=== PATIENT | female | born 1960 | race Caucasian/White ===

== ENCOUNTER 2018-07-11 19:21 | Emergency (ER) | payer MEDICARE, MEDICAID, SELFPAY ==
[2018-07-11 19:22] VITALS: BP 197/108; PULSE 94; RESP 22; TEMP 37.2; O2SAT 97; BMI 31.4
[2018-07-11 19:43] VITALS: O2SAT 97
--- NOTE | 2018-07-11 20:09 | EKG12_ITS ---
Test Reason : COLD Blood Pressure : / mmHG Vent. Rate : 082 BPM Atrial Rate : 082 BPM P-R Int : 162 ms QRS Dur : 076 ms QT Int : 412 ms P-R-T Axes : 061 012 037 degrees QTc Int : 481 ms Normal sinus rhythm Possible Left atrial enlargement Prolonged QT Abnormal ECG Confirmed by JONEL SUE, AUSTIN ([id number]), photography editor JOE TORRES ([id number]) on 07/14/2018 3:15:25 PM Referred By: KATIE Confirmed By:AUSTIN REMY MD
[2018-07-11] MEDS: Ipratropium/Albuterol Sulfate 3 ML AMPUL.NEB INHALATION (20:21)
[2018-07-11] MEDS: Albuterol 2.5 MG/3 ML VIAL.NEB. INHALATION (20:21)
[2018-07-11 20:22] VITALS: PULSE 84; RESP 18
--- NOTE | 2018-07-11 20:30 | RAD_ITS ---
STUDY: X-RAY CHEST REASON FOR EXAM: Female, 58 years old. Cough TECHNIQUE: Frontal and lateral views of the chest were obtained. COMPARISON: August 18, 2015 FINDINGS: The lungs are adequately aerated. There are no focal airspace opacities. There is no demonstrated pleural abnormality. The cardiac silhouette is normal in size. The mediastinum and hilar regions are unremarkable. Normal visualized pulmonary arteries. There is atherosclerotic calcification of the thoracic aorta. There are diffuse degenerative changes of the visualized spine. The visualized ribs, clavicles, and shoulders are unremarkable. There is no demonstrated abnormality of the visualized upper abdomen. RAD/Chest PA and Lateral IMPRESSION: There is no evidence of focal consolidation or pleural effusion. Electronically Signed: Leila Faith MD at 20:58 EDT Tel Direct: [phone], Service support ,
--- NOTE | 2018-07-11 20:35 | ED.DCSUM_ITS ---
- ER Visit Summary Date of Service: 07/11/18 Chief Complaint: Shortness of breath History of Present Illness: The patient is a 58 F who states that for the past several days she has been laying on the couch with some postnasal drip and sinus drainage as well as a sore throat and swollen glands in the neck. States that today she assisted a friend to [place] and was carrying a 2-year-old she developed significant short of breath and chest tightness. She notes a cough with some clear sputum production. She has generalized myalgias. She is a pack-a-day smoker. She is a history of diabetes with diabetic neuropathy. Physical Examination: Afebrile vital signs are stable Gen: Well-nourished well-developed Head: Normocephalic atraumatic Eyes: Perrl EOMI ENT: TMs clear patient has clear rhinorrhea and postnasal drip moist mucous membranes Neck: Supple no lymphadenopathy no JVD nontender CVS: Regular rate rhythm no murmurs normal S1-S2 Respiratory: No distress patient has inspiratory and expiratory wheezing chest nontender Abdomen: Soft nontender nondistended normal bowel sounds no masses Back: Nontender Extremity: Nontender no edema Skin: Normal color no rash Neuro: alert orientated ?3 CN II-XII intact normal strength sensation reflexes gait cerebellar Psych: Normal affect normal mood Test Results: EKG shows a sinus rhythm at a rate of 82. Chest x-ray is negative for infiltrate Emergency Department Course and Treatment: Patient received breathing treatments on repeat lung auscultation the wheezing is significantly improved. She will be placed on prednisone and doxycycline she is to use her albuterol MDI 2 puffs every 3 hours. She is to follow-up with primary care early next week or return if worsening. Impression: 1. Acute bronchitis with bronchospasm This note was generated with [employer] dictation software. It may contain incorrect words, spelling, and punctuation that were not noted in review of the chart prior to signing ED Disposition - Plan for ED Patient: Disposition: Home or Assisted Living Chief Complaint: Cold Sx Instructions: Acute Bronchitis, ED Wheezing Prescriptions: Albuterol Inhaler [Ventolin Hfa] 2 puff INHALATION Q4H PRN PRN #1 inhaler PRN Reason: Wheezing Prednisone [Deltasone] 40 mg PO DAILY #8 tab Doxycycline Monohydrate 100 mg PO BID #19 cap Referrals: Susanna Monroe MD [Primary Care Provider] - 3-5 Days if not improving Additional Instructions: For the next couple days I would use your inhaler 2 puffs every 3 hours. Please return if worsening or concerns.
[2018-07-11] MEDS: predniSONE 20 MG Tablet 40 MG PO (21:42)
[2018-07-11] MEDS: Doxycycline 100 MG CAPSULE PO (21:42)
[2018-07-11 21:47] VITALS: BP 159/100; PULSE 85; RESP 15; O2SAT 94
== END 2018-07-11 21:48 | disposition home or self-care (01) ==
PROVIDERS: Emergency Provider Emergency Medicine; Family Provider Internal Medicine; PCP Internal Medicine
DX: J20.9 Acute bronchitis, unspecified (principal); E11.40 Type 2 diabetes mellitus with diabetic neuropathy, unspecified; F17.200 Nicotine dependence, unspecified, uncomplicated; Z79.84 Long term (current) use of oral hypoglycemic drugs; Z79.899 Other long term (current) drug therapy
CPT/HCPCS: 71046; 93005; 94640; 99283

== ENCOUNTER → 2018-10-28 15:25 | Outpatient (CLI) | payer MEDICARE, MEDICAID, SELFPAY | PROVIDERS: Family Provider Internal Medicine; PCP Internal Medicine; Referring Provider Otolaryngology Otolaryngology/Facial Plastic Surgery; Visit Provider Otolaryngology Otolaryngology/Facial Plastic Surgery | DX: J32.9 Chronic sinusitis, unspecified (principal) | CPT/HCPCS: 87070; 87205 ==

== ENCOUNTER → 2018-11-13 17:43 | Outpatient (CLI) | payer MEDICARE, MEDICAID, SELFPAY ==
--- NOTE | 2018-11-13 17:49 | CT_ITS ---
STUDY: CT MAXILLOFACIAL SINUSES REASON FOR EXAM: Female, 58 years old. Sinusitis RADIATION DOSAGE (If Supplied By Facility): CTDIvol = ( 33.06 ) mGy, DLP = ( 780.13 ) mGycm TECHNIQUE: The patient was scanned in a multi detector CT scanner. High resolution axial imaging was performed without the administration of intravenous contrast material. Sagittal and coronal images were reconstructed. Individualized dose optimization techniques were used for this CT. COMPARISON: None. FINDINGS: FRONTAL SINUSES: Normal aeration, without mucosal inflammatory disease. ETHMOIDAL SINUSES: Normal aeration, without mucosal inflammatory disease. MAXILLARY SINUSES: Normal aeration, without mucosal inflammatory disease. SPHENOIDAL SINUSES: Normal aeration, without mucosal inflammatory disease. There is patency of the bilateral maxillary infundibuli with normal uncinate processes, ethmoid bullae, and hiatus semilunaris. There is a cedrick bullosa of the right middle turbinate. Normal bilateral inferior turbinates. There is a leftward nasal spur. There is patency of the bilateral nasal airways. The visualized osseous structures are normal. The visualized bilateral orbital contents are normal. There is atherosclerotic calcifications of the bilateral carotid arteries. CT/Sinus/Facial Bone IMPRESSION: Normal CT examination of the maxillofacial sinuses. Electronically Signed: Keshia Nava MD at 8:53 EST Tel , Service support ,
== END ==
PROVIDERS: Family Provider Internal Medicine; PCP Internal Medicine; Referring Provider Otolaryngology Otolaryngology/Facial Plastic Surgery; Visit Provider Otolaryngology Otolaryngology/Facial Plastic Surgery
DX: J32.9 Chronic sinusitis, unspecified (principal)
CPT/HCPCS: 70486

== ENCOUNTER 2019-07-29 18:56 | Emergency (ER) | payer MEDICARE, MEDICAID, SELFPAY ==
[2019-07-29 18:57] VITALS: BP 160/105; PULSE 97; RESP 16; TEMP 36.3; O2SAT 99; BMI 33.8
--- NOTE | 2019-07-29 19:32 | ED.VISSUMM ---
- ER Visit Summary Date of Service: 07/29/19 Chief Complaint: Foot pain History of Present Illness: The patient is a 59 F with bilateral foot pain she describes as [id number]. This is been gradually getting worse for a long time. She has been taking ibuprofen twice a day and her doctor has been increasing her gabapentin dose. She is planning to follow-up with her foot surgeon for nerve testing. She has a history of diabetes and her sugars usually run in the 200s. She is a smoker. Physical Examination: Afebrile and vital signs unremarkable. Foot inspection is normal. She has strong DP and PT pulses, symmetric. Normal capillary refill. Skin appears unremarkable. The remainder of her exam is unremarkable except for some subjective paresthesias in her feet. Test Results: None indicated Emergency Department Course and Treatment: Patient has neuropathy. I advised her to continue taking her ibuprofen and gabapentin. I advised her to cut back or quit smoking. I advised her to get her sugars under control. She will need to follow-up with her outpatient doctors. There is no indication for emergent imaging or other intervention today. She was treated with a short course of pain medicine and will call her doctors for follow-up tomorrow morning. Treatment Plan: As above Disposition: Discharged Impression: 1. Bilateral foot neuropathy This note was generated with [employer] dictation software. It may contain incorrect words, spelling, and punctuation that were not noted in review of the chart prior to signing ED Disposition - Plan for ED Patient: Referrals: Susanna Monroe MD [Primary Care Provider] -
--- NOTE | 2019-07-29 19:35 | ED.DEP ---
ED Disposition - Plan for ED Patient: Instructions: What Is Peripheral Neuropathy? Prescriptions: Oxycodone HCl/Acetaminophen [Percocet 5/325] 1 tab PO Q6H PRN PRN 3 Days #12 tab PRN Reason: Pain Prescription Printed Referrals: Susanna Monroe MD [Primary Care Provider] -
[2019-07-29 20:08] VITALS: BP 158/60; PULSE 87; RESP 18; O2SAT 96
== END 2019-07-29 20:09 | disposition home or self-care (01) ==
LOC: ED 20:00
PROVIDERS: Emergency Provider Emergency Medicine; Family Provider Internal Medicine; PCP Internal Medicine
DX: E11.40 Type 2 diabetes mellitus with diabetic neuropathy, unspecified (principal); I10 Essential (primary) hypertension; J44.9 Chronic obstructive pulmonary disease, unspecified; F32.9 Major depressive disorder, single episode, unspecified; F41.9 Anxiety disorder, unspecified; F17.200 Nicotine dependence, unspecified, uncomplicated; Z79.84 Long term (current) use of oral hypoglycemic drugs; Z79.899 Other long term (current) drug therapy
CPT/HCPCS: 99282

== ENCOUNTER → 2019-10-07 09:04 | Outpatient (CLI) | payer MEDICARE, MEDICAID, SELFPAY ==
--- NOTE | 2019-10-07 14:09 | NEURO ---
NCS and/or EMG Patient Report Ordering Doctor: Jesus Chavez DATE OF SERVICE: 10/07/19 Ibis De Santiago is a 59-year-old female presents for electrodiagnostic testing of the lower limbs. She reports pain in both feet, primarily on the plantar aspect. Electrodiagnostic findings: Peroneal motor nerve demonstrates normal distal latency, amplitude and conduction velocity bilaterally. Normal tibial motor response bilaterally. Normal peroneal and tibial F waves. H reflex borderline prolonged bilaterally. Prolonged sural latency is noted bilaterally. Normal superficial peroneal and plantar responses. Needle EMG testing demonstrates normal motor unit action potentials in all muscles tested. There is no evidence of denervation noted. Electrodiagnostic impression: This is an abnormal study in the lower limbs. 1. 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 This, however, is unlikely to explain her current symptomatology as it would likely present with numbness. 2. There is no electrodiagnostic evidence for lumbosacral radiculopathy. If there are any further questions, please do not hesitate to contact me.
== END ==
PROVIDERS: Family Provider Internal Medicine; PCP Internal Medicine; Referring Provider Podiatrist Foot & Ankle Surgery; Visit Provider Podiatrist Foot & Ankle Surgery
DX: E11.49 Type 2 diabetes mellitus with other diabetic neurological complication (principal)
CPT/HCPCS: 95886; 95912

== ENCOUNTER 2020-04-25 15:56 | Emergency (ER) | payer MEDICARE, MEDICAID, SELFPAY ==
[2020-04-25 15:57] VITALS: BP 139/98; PULSE 71; RESP 16; TEMP 36.3; O2SAT 98; BMI 31.4
--- NOTE | 2020-04-25 17:48 | RAD_ITS ---
STUDY: X-RAY - LUMBAR SPINE REASON FOR EXAM: Female, 59 years old. Back pain TECHNIQUE: 3 view(s) of the lumbar spine were obtained. COMPARISON: None FINDINGS: Normal lumbar lordosis. There is no substantial scoliosis. Mild disc space narrowing is present from L1-L2 down to L3-L4 as well as retrolisthesis of 2 to 3 mm at each level. The remaining disc spaces are preserved. Multilevel mild to moderate facet hypertrophy is present. No visualized fracture or compression deformity. Surgical clips are seen in the pelvis. There is atherosclerotic calcification of the abdominal aorta without a demonstrated aneurysm. RAD/Lumbar Spine 2 or 3 Views IMPRESSION: Degenerative changes of the spine, as detailed above. Electronically Signed: Eduardo العراقي MD at 18:51 EDT , Service support ,
--- NOTE | 2020-04-25 18:19 | ED.VIS.GEN ---
History of Present Illness Chief Complaint: Lower Extremity Injury Informant: Patient Narrative: 59-year-old female with history of neuropathy and some sciatic pain on the right with worsening since she states she had a fall 5 days ago. She is ambulatory. She states that she has paresthesias that run down the right side of her leg. These seem to emanate from the gluteal region. She has history of surgery in the right thigh and has paresthesias which are still present. She denies loss of bladder or bowel control. She denies saddle paresthesia. - Past Medical History (1) Anxiety and depression Status: Chronic (2) Asthma Status: Chronic (3) Benign essential hypertension Status: Chronic (4) COLD (chronic obstructive lung disease) Status: Chronic (5) Hyperlipidemia Status: Chronic Past Medical History - Allergies and Home Meds Allergies/Adverse Reactions: Allergies acetaminophen [From Vicodin] Allergy (Verified 04/25/20 15:59) Upset Stomach fluoxetine [From Prozac] Allergy (Verified 04/25/20 17:27) Chest tightness hydrocodone [From Vicodin] Allergy (Verified 04/25/20 15:59) Upset Stomach Penicillins Allergy (Verified 07/29/19 18:56) Hives Primary Care Physician: Susanna Monroe MD [Primary Care Provider] - Prior records reviewed: Yes Past Medical History: - - Reviewed Surgical History: appendectomy - 1996, cholecystectomy - 2004, hysterectomy - 2002, tonsillectomy - 1992 Smoking Status: Current every day smoker - Family History Maternal Family History: Reports: No pertinent history Paternal Family History: Reports: No pertinent history Sibling Family History: Reports: No pertinent history Review of Systems General: Denies: Chills, Fever, Sweats Eyes: Denies: Visual changes - bilaterally, Diplopia ENT: Denies: Rhinorrhea, Sore throat Cardiovascular: Denies: Chest pain, Palpitations Respiratory: Denies: Dyspnea, Cough, Dyspnea on exertion Gastrointestinal: Denies: Abdominal pain, Nausea, Vomiting, Diarrhea, Melena, Hematochezia Genitourinary: Denies: Dysuria, Hematuria, Frequency Musculoskeletal: Reports: Back pain - Radiation into the lateral leg and thigh Skin: Denies: Rash Neurological: Denies: Headache, Weakness Physical Exam Vital Signs/Narrative: Vital Signs Temp Pulse Resp BP Pulse Ox 04/25/20 15:57 97.4 F L 71 16 139/98 H 98 Inital Vital Signs reviewed: Yes General: Well nourished, No Acute Distress Head: Normocephalic, Atraumatic Eyes: Perrl, EOMI ENT: Moist mucous membranes Cardiovascular: Regular rate, Regular rhythm Respiratory: No distress, CTA bilaterally Back: - - No apparent midline spinal tenderness, deformity, step-off. There is right lateral paraspinal musculature tenderness and right gluteal tenderness. The right anterior lateral thigh has some decreased sensation which patient reports is due to surgery. Diagnostic/Tx/Re-eval Clinical Impression(s) from Imaging Studies Lumbar Spine X-Ray 04/25/20 17:48 IMPRESSION: Degenerative changes of the spine, as detailed above. Electronically Signed: Eduardo العراقي MD at 18:51 EDT , Service support , - Medical Decision Making Patient was seen and evaluated arrival for back pain which is been worsening since she fell. She states that she has some paresthesias down the right lateral aspect of her gluteal region and thigh. She has no signs or symptoms of cauda equina or infectious etiology for her back pain. Patient is driving so I could not give her pain medication here. I did get an x-ray of the lumbar spine which shows interval changes. Given short supply of [place] for home. She will follow-up with her PCP to ensure resolution. She is given return precautions. Impression: 1. Lumbar contusion 2. Lumbar strain ED Disposition - Plan for ED Patient: Disposition: Home or Assisted Living Instructions: Relieving Back Pain Prescriptions: Oxycodone HCl/Acetaminophen [Percocet 5/325] 1 tab PO Q6H PRN PRN 3 Days #12 tab PRN Reason: Pain Prescription Printed Referrals: Susanna Monroe MD [Primary Care Provider] -
[2020-04-25 19:18] VITALS: BP 138/85; PULSE 92; RESP 16; O2SAT 99
== END 2020-04-25 19:19 | disposition home or self-care (01) ==
PROVIDERS: Emergency Provider Student in an Organized Health Care Education/Training Program; PCP Internal Medicine
DX: S30.0XXA Contusion of lower back and pelvis, initial encounter (principal); S39.012A Strain of muscle, fascia and tendon of lower back, initial encounter; F17.200 Nicotine dependence, unspecified, uncomplicated; I10 Essential (primary) hypertension; J44.9 Chronic obstructive pulmonary disease, unspecified; F32.9 Major depressive disorder, single episode, unspecified; E78.5 Hyperlipidemia, unspecified; F41.9 Anxiety disorder, unspecified; X58.XXXA Exposure to other specified factors, initial encounter
CPT/HCPCS: 72100; 99282

== ENCOUNTER 2020-04-26 16:21 | Emergency (ER) | payer MEDICARE, MEDICAID, SELFPAY ==
[2020-04-25 15:57] VITALS: BMI 31.4
[2020-04-26 16:21] VITALS: BP 145/88; PULSE 78; RESP 16; TEMP 36.1; O2SAT 97; BMI 31.4
--- NOTE | 2020-04-26 16:49 | MRI_ITS ---
STUDY: MRI LUMBAR SPINE WITHOUT CONTRAST REASON FOR EXAM: Female, 59 years old. ble weakness and amp; numbness, urinary retention x 2 days with rather sudden onset TECHNIQUE: Standardized fat and water weighted pulse sequences were obtained in the sagittal and axial planes. COMPARISON: Lumbar spine x-ray dated April 25, 2020 FINDINGS: No visualized acute fracture or compression deformity. No aggressive process is seen. Normal lumbar lordosis. There is no substantial scoliosis. Normal conus medullaris that terminates at the T12 level. L1-2: Retrolisthesis of L1 on L2 of 3 to 4 mm is present. Moderate disc space narrowing results in a diffuse disc osteophyte complex. Normal disc height, hydration and morphology. Normal bilateral facet joints. Normal central canal and bilateral lateral recesses. Normal bilateral intervertebral neural foramina. L2-3: Mild retrolisthesis of L2 on L3 of 2 to 3 mm is present. The disc spaces mildly to moderately narrow resulting in a diffuse disc spur complex. The facet joints are mildly to moderately hypertrophied and degenerated. Right lateral recess stenosis with nerve root compression is present due to asymmetry of the disc spur complex. Normal central canal. Left lateral recess is also present. Normal bilateral intervertebral neural foramina. L3-4: Minimal retrolisthesis of L3 on L4 of less than 2 mm is present. Mild disc space narrowing is associated with a mild diffuse disc spur complex. The facet joints are moderately hypertrophied. Normal central canal and bilateral lateral recesses. Normal bilateral intervertebral neural foramina. L4-5: Normal endplates. Mild posterior disc space narrowing is present with minimal annular bulging. Significant facet joint and ligamenta flava hypertrophy contribute to moderate central canal stenosis and bilateral lateral recess stenosis with nerve root compression moderate left foraminal stenosis contributes to mild compression of the nerve root. Mild right foraminal stenosis is present. L5-S1: Normal endplates. Normal disc height, hydration and morphology. The facet joints are mildly hypertrophied and degenerated. Normal central canal and bilateral lateral recesses. Normal bilateral intervertebral neural foramina. Normal visualized sacral ala. Normal visualized paraspinous soft tissue structures. MRI/Spine Lumbar (Routine) IMPRESSION: 1. Multilevel degenerative changes, as described above. 2. Moderate central canal stenosis at L4-L5 3. Right lateral recess stenosis with nerve root compression at L2-L3 Electronically Signed: Eduardo العراقي MD at 20:06 EDT , Service support ,
--- NOTE | 2020-04-26 17:16 | ED.VIS.BACK ---
History of Present Illness Chief Complaint: Back Informant: Patient Onset: Days - 2-3 Context: Gradual Onset Timing: Continuous Quality: Aching Location: Lumbar, Buttock, Right Leg, Left Leg Current Severity: Severe Maximum Severity: Severe Worsened by: improves with: Movement, Ambulation Relieved by: Nothing Associated Symptoms: Numbness, Tingling, Radiation to Right Leg, Radiation to Left Leg, Urinary Retention - Today, Fecal Incontinence - Flatus only Narrative: Patient states she has done repetitive lifting in moving heavy things within the past couple weeks, and actually had a minor fall where she fell on her back and was seen here in the ER and had negative x-rays. Pain is gradually increased, especially over the last couple days, yesterday she started having numbness in both of her legs, today it has progressed to her perineum and she has had incontinence of flatus, feeling like she cannot hold in gas, and she has noticed that when she tries to urinate she is unable to get urine out. This is never happened her before. She has had back issues in the past, but never required any surgeries. The patient also does note that she has pain in her neck diffusely, and some mild tingling in her right fingers, but mild. No weakness in her upper extremities. - Past Medical History (1) Anxiety and depression Status: Chronic (2) Asthma Status: Chronic (3) Benign essential hypertension Status: Chronic (4) COLD (chronic obstructive lung disease) Status: Chronic (5) Hyperlipidemia Status: Chronic (6) Obstructive sleep apnea Status: Chronic (7) Osteoarthritis Status: Chronic Past Medical History - Allergies and Home Meds Allergies/Adverse Reactions: Allergies acetaminophen [From Vicodin] Allergy (Verified 04/26/20 16:23) Upset Stomach fluoxetine [From Prozac] Allergy (Verified 04/26/20 16:23) Chest tightness hydrocodone [From Vicodin] Allergy (Verified 04/26/20 16:23) Upset Stomach Penicillins Allergy (Verified 04/26/20 16:23) [facility] Primary Care Physician: Susanna Monroe MD [Primary Care Provider] - Surgical History: appendectomy - 1996, cholecystectomy - 2004, hysterectomy - 2002, tonsillectomy - 1992 Smoking Status: Current every day smoker - Family History Maternal Family History: Reports: No pertinent history Paternal Family History: Reports: No pertinent history Sibling Family History: Reports: No pertinent history Review of Systems General: Denies: Chills, Fever, Sweats Eyes: Denies: Visual changes - bilaterally, Diplopia ENT: Denies: Rhinorrhea, Sore throat Cardiovascular: Denies: Chest pain, Palpitations Respiratory: Denies: Dyspnea, Cough, Dyspnea on exertion Gastrointestinal: Reports: - - Incontinent of flatus, see HPI. Denies: Abdominal pain, Nausea, Vomiting, Diarrhea, Melena, Hematochezia Genitourinary: Reports: - - Urinary retention. Denies: Dysuria, Hematuria, Frequency Musculoskeletal: Reports: Neck pain, Back pain. Denies: Extremity Pain Skin: Denies: Rash, Wounds Neurological: Reports: Weakness - BLE, Numbness - BLE, and perineum. Denies: Headache Physical Exam Vital Signs/Narrative: Vital Signs Temp Pulse Resp BP Pulse Ox 04/26/20 16:21 97 F L 78 16 145/88 H 97 Inital Vital Signs reviewed: Yes General: Well nourished, Well developed Head: Normocephalic, Atraumatic Eyes: Perrl, EOMI ENT: Moist mucous membranes, No rhinorrhea Neck: Supple, Nontender Cardiovascular: Regular rate, Regular rhythm, No murmurs. Negative for: Tachycardia Respiratory: No distress, CTA bilaterally, Chest nontender Abdomen: Soft, Nontender, Nondistended, Normal bowel sounds Rectal: - - Decreased rectal tone and sensation in the perianal area Back: Normal Inspection, Positive SLR - Right, Positive SLR - Left. Negative for: CVA tenderness Extremeties: Nontender, No edema Skin: Normal color, No rash Neuro: Alert, Oriented, Weakness, Parasthesia - Both lower extremities, including perineum, - - Able to stand, but hyporeflexic. No clonus. Toes downgoing bilaterally. Weakness greater on the left lower extremity, with regards to thigh extension and knee flexion, also mildly weak with knee extension as well. 4+/5 in all those groups. Normal objective sensation and strength and reflexes in both upper extremities with symmetry. Psychological: Normal affect Diagnostic/Tx/Re-eval Impressions Lumbar Spine MRI 04/26/20 16:49 IMPRESSION: 1. Multilevel degenerative changes, as described above. 2. Moderate central canal stenosis at L4-L5 3. Right lateral recess stenosis with nerve root compression at L2-L3 Electronically Signed: Eduardo العراقي MD at 20:06 EDT , Service support , 04/26/20 16:49 MRI Lumbar [Spine Lumbar (Routine)] [MRI] Stat Laboratory Results 04/26/20 04/26/20 04/26/20 17:15 17:15 17:15 WBC 10.0 RBC 4.84 Hgb 13.8 Hct 41.4 MCV 85.5 MCH 28.5 MCHC 33.3 RDW Std Deviation 42.4 RDW Coeff of Rodrigo 13.8 Plt Count 352 MPV 9.8 Immature Gran % (Auto) 0.200 Neut % (Auto) 48.1 Lymph % (Auto) 41.8 H Schley % (Auto) 6.7 Eos % (Auto) 2.4 Baso % (Auto) 0.8 Absolute Neuts (auto) 4.8 Absolute Lymphs (auto) 4.18 Nucleated RBC % 0 PT 12.4 INR 1.0 APTT 30.2 Sodium 143 Potassium 3.5 Chloride 111 H Carbon Dioxide 25.0 Anion Gap 7 BUN 14 Creatinine 0.66 Estim Creat Clear Calc 85.92 Est GFR (MDRD) Af Amer 117 Est GFR (MDRD) Non-Af 97 BUN/Creatinine Ratio 21.1 H Glucose 139 H Calcium 8.8 Urine Color Urine Clarity Urine pH Ur Specific [place] Urine Protein Urine Glucose (UA) Urine Ketones Urine Occult Blood Urine Nitrite Urine Bilirubin Urine Urobilinogen Ur Leukocyte Esterase Urine RBC Urine WBC Ur Squamous Epith Cells Calcium Oxalate Crystal Urine Bacteria Urine Mucus 04/26/20 17:15 WBC RBC Hgb Hct MCV MCH MCHC RDW Std Deviation RDW Coeff of Rodrigo Plt Count MPV Immature Gran % (Auto) Neut % (Auto) Lymph % (Auto) Schley % (Auto) Eos % (Auto) Baso % (Auto) Absolute Neuts (auto) Absolute Lymphs (auto) Nucleated RBC % PT INR APTT Sodium Potassium Chloride Carbon Dioxide Anion Gap BUN Creatinine Estim Creat Clear Calc Est GFR (MDRD) Af Amer Est GFR (MDRD) Non-Af BUN/Creatinine Ratio Glucose Calcium Urine Color Yellow Urine Clarity Sl. Cloudy Urine pH 5.0 Ur Specific [place] 1.020 Urine Protein Negative Urine Glucose (UA) Normal Urine Ketones Negative Urine Occult Blood Negative Urine Nitrite Negative Urine Bilirubin Negative Urine Urobilinogen Normal Ur Leukocyte Esterase 500 H Urine RBC 0 SEEN Urine WBC 5-10 SEEN Ur Squamous Epith Cells 5-10 SEEN Calcium Oxalate Crystal 1+ Urine Bacteria RARE Urine Mucus 0 SEEN - Medical Decision Making MRI findings are consistent with her symptoms and clinical findings, which are consistent with cauda equina syndrome. She is, however, still able to bear weight as she does not have enough weakness in her lower extremities to prevent this, but she does have some mild objective weakness bilaterally and on reevaluation she has had no changes and is still numb from the perineum down to both feet. Patient was able to urinate, postvoid residual 209 found by bedside bladder ultrasound by nursing. Discussed with patient about transfer which she is amenable to. We tried several hospitals that were full at capacity and did not have the ability to accept her due to bed availability, I was able to discuss with the neurosurgeon at [facility], who was available at [facility] where there is an available bed, he said that the patient was not likely to be criteria for emergency neurosurgery, but certainly had concerning neurologic symptoms and findings to the point of being reasonable to transfer for further evaluation. Accepted by Dr. Cardona with medicine. ED Disposition - Plan for ED Patient: Disposition: Acute Care Hospital - Other Diagnosis: Cauda equina syndrome Referrals: Susanna Monroe MD [Primary Care Provider] -
[2020-04-26] MEDS: Morphine 4 MG/ML Syringe IV (17:25)
[2020-04-26 17:37] LABS: Mucous, Urine 0 SEEN /hpf (<or=2+); Red Blood Cells-Urine 0 SEEN /hpf (0-5)
[2020-04-26 17:38] LABS: Color, Urine Yellow (Yellow); Glucose, Dipstick Normal (Normal); Ketone-Dipstick Negative (Negative); Leukocyte Esterase-Dipstick 500 /ul (Negative); Nitrite-Dipstick Negative (Negative); Occult Blood-Urine Negative /ul (Negative); Protein-Dipstick Negative (Negative); Urine Bilirubin Dipstick Negative (Negative); Urine Clarity Sl. Cloudy (Clear); Urine Urobilinogen Normal (Normal)
[2020-04-26 17:45] LABS: Calcium Oxalate Crystals Ur 1+ /hpf (<or=2+); Squamous Epithelial Cells - UA 5-10 SEEN /hpf (5-10); White Blood Cells 5-10 SEEN /hpf (0-5)
[2020-04-26 17:46] LABS: Bacteria RARE /hpf (None Seen)
[2020-04-26 17:50] LABS: Absolute Lymphocyte Count 4.18 X10^3/uL (0.83-4.51); Absolute Neutrophil Count 4.8 X10^3/uL (2.0-7.7); Basophil# 0.08 X10^3/uL; Basophil% 0.8 % (0-1); Eosinophil# 0.24 X10^3/uL; Eosinophils% 2.4 % (0-5); Hematocrit 41.4 % (37-47); Hemoglobin 13.8 g/dL (12.0-15.0); Lymphocyte # 4.18 X10^3/ul (4.0); Lymphocyte % 41.8 % (19-41); Mean Corp Hgb Conc 33.3 g/dL (32-36); Mean Corpuscular Hgb 28.5 pg (27.0-32.0); Mean Corpuscular Volume 85.5 fL (81-99); Mean Platelet Vol. 9.8 fl (6.2-12.0); Monocyte# 0.67 X10^3/uL; Monocyte% 6.7 % (0-10); NRBC Flagged by Analyzer 0 % (0-5); Neutrophil # 4.82 X10^3/uL (2.7-7.7); Neutrophil % 48.1 % (47-70); Platelet Count 352 K/mm3 (150-450); RBC Distribution Width CV 13.8 % (11.6-14.6); RBC Distribution Width SD 42.4 fl (35.1-43.9); Red Blood Count 4.84 M/mm3 (4.2-5.4)
[2020-04-26 17:54] LABS: Anion Gap 7 (5-15); BUN 14 mg/dL (7-18); BUN/Creat Ratio 21.1 RATIO (10-20); Calcium,Total 8.8 mg/dL (8.5-10.1); Chloride 111 mmol/L (98-107); Creatinine, Serum 0.66 mg/dL (0.55-1.02); EST Glomerular Filtration Rate 97 mL/min (>60); Est Glom Filt Rate - Afr Amer 117 mL/min (>60); Estimated Creatinine Clearance 85.92 ml/min; Glucose 139 mg/dL (74-106); Potassium 3.5 mmol/L (3.5-5.1); Sodium Level 143 mmol/L (136-145)
[2020-04-26 18:26] LABS: Prothrombin Time (Protime)PT. 12.4 SECONDS (11.7-14.9)
[2020-04-26 18:27] LABS: Partial Thromboplast Time 30.2 Seconds (24.1-36.2)
[2020-04-26 21:00] VITALS: BP 150/84; PULSE 79; RESP 16; O2SAT 97
[2020-04-26 22:30] VITALS: BP 131/87; PULSE 66; RESP 14; O2SAT 96
== END 2020-04-26 22:41 | disposition short-term general hospital (02) ==
PROVIDERS: Emergency Provider Emergency Medicine; PCP Internal Medicine
DX: G83.4 Cauda equina syndrome (principal); F17.200 Nicotine dependence, unspecified, uncomplicated; J44.9 Chronic obstructive pulmonary disease, unspecified; I10 Essential (primary) hypertension; F32.9 Major depressive disorder, single episode, unspecified; Z79.899 Other long term (current) drug therapy
CPT/HCPCS: 72148; 80048; 81001; 85025; 85610; 85730; 87086; 87088; 96374; 99285; A4216

== ENCOUNTER 2021-08-21 11:49 | Emergency (ER) | payer MEDICARE, MEDICAID, SELFPAY ==
[2021-08-21 11:50] VITALS: BP 181/96; PULSE 82; RESP 22; TEMP 35.2; O2SAT 98; BMI 30.7
--- NOTE | 2021-08-21 11:52 | EKG12_ITS ---
Test Reason : SOB Blood Pressure : / mmHG Vent. Rate : 058 BPM Atrial Rate : 058 BPM P-R Int : 154 ms QRS Dur : 076 ms QT Int : 468 ms P-R-T Axes : 060 011 034 degrees QTc Int : 459 ms Sinus bradycardia Otherwise normal ECG Confirmed by RASHAD SUE, OSCAR ([id number]), editor trade journal ANGELINE VELÁSQUEZ ([id number]) on 08/23/2021 11:26:37 AM Referred By: Confirmed By:OSCAR SOLORZANO MD
--- NOTE | 2021-08-21 12:14 | RAD_ITS ---
STUDY: X-RAY CHEST REASON FOR EXAM: Female, 61 years old. Chest pain TECHNIQUE: Single AP portable view of the chest. COMPARISON: Comparison is made with prior study dated 07/11/2018. FINDINGS: The lungs are clear and expanded. There is no demonstrated pleural abnormality. Normal size heart. Normal mediastinum and norah. Normal visualized pulmonary arteries. There is atherosclerotic calcification of the aortic arch with tortuosity. There are diffuse degenerative changes of the visualized thoracic spine. Normal visualized ribs, clavicles, and shoulders. There is no demonstrated abnormality of the visualized soft tissue structures of the upper abdomen. RAD/Chest 1 View (Portable) IMPRESSION: No acute abnormality is seen. Electronically Signed: Fili Sagastume MD at 12:27 EST , Service support ,
--- NOTE | 2021-08-21 14:41 | EX.ED.DYSGE1 ---
HPI History of Present Illness Chief Complaint: General Illness Informant: patient Narrative Narrative: Patient comes in with cough and wheezing. She thinks this started a little over 2 weeks ago. She had some mild nasal congestion runny nose. She got her flu shot and Covid booster on 06 August. She had about 3 days of fevers and myalgias after that. Those complaints have ceased. But she continues to have cough and wheezing. After questioning, I find that she was on a prednisone course that sounds like it was 40 mg a day for 5 days. She finished that several days ago. She is finishing up doxycycline now. She does have an albuterol inhaler at home that she uses occasionally but does not feel that it helps much. She used to have a spacer but does not have a spacer for it. She does have a nebulizer and has albuterol at home but has only used it once or twice. She states it does help. She also used to have Atrovent but does not have that anymore. She is not really bringing up sputum. She has no fevers. She does not have chest pain but she does get dyspnea with exertion. A few months ago she moved to an upstairs apartment and she gets short of breath every time she walks up the steps. This is not changing. This is being worked up as an outpatient. This is not changing or progressing. PFSH PFSH Home Medications gemfibrozil 600 mg PO BID 06/13/14 [History Last Taken 07/19/15 600 MG] trazodone 100 mg PO QHS 06/13/14 [History Last Taken 07/19/15 100 MG] alprazolam 0.5 mg PO QHS 07/30/15 [History Last Taken 2 Weeks Ago ~07/16/15 2 TABS] lisinopril 20 mg PO DAILY #30 tablet 08/02/15 [Rx Last Taken Unknown] albuterol sulfate [Ventolin HFA] 1 - 2 puff INHALATION Q4H PRN PRN #1 inhaler 08/08/15 [Rx Last Taken Unknown] Atenolol 50 mg PO DAILY 09/26/15 [History Last Taken 09/26/15 12:00] furosemide 20 mg PO DAILY 09/26/15 [History Last Taken Unknown] buspirone 7.5 mg PO BID 07/11/18 [History Last Taken Unknown] gabapentin [Neurontin] 600 mg PO BID 07/11/18 [History Last Taken Unknown] metformin 500 mg PO BID 07/11/18 [History Last Taken Unknown] potassium chloride 10 meq PO DAILY 07/11/18 [History Last Taken Unknown] sertraline [Zoloft] 200 mg PO QHS 07/11/18 [History Last Taken Unknown] fluticasone furoate-vilanterol 1 ea IH DAILY 07/29/19 [History Last Taken Unknown] ipratropium bromide 2.5 ml INHALATION Q6H PRN #75 ml 08/21/21 [Rx Last Taken Unknown] prednisone 60 mg PO DAILY #9 tab 08/21/21 [Rx Last Taken Unknown] Allergy/AdvReac Type Severity Reaction Status Date / Time acetaminophen [From Vicodin] Allergy Upset Verified 04/26/20 16:23 Stomach fluoxetine [From Prozac] Allergy Chest Verified 04/26/20 16:23 tightness hydrocodone [From Vicodin] Allergy Upset Verified 04/26/20 16:23 Stomach Penicillins Allergy Hives Verified 04/26/20 16:23 Social History Smoking Status: Current every day smoker tobacco type: cigarettes ROS ROS ED Constitutional Constitutional ED: Reports fever(s) and subjective Eyes Eyes: Denies change in vision ENT ENT ED: Reports rhinorrhea; Denies ear pain or sore throat Cardiovascular Cardiovascular: Denies chest pain or palpitations Respiratory/Chest Respiratory/Chest: Reports cough, dyspnea and dyspnea on exertion; Denies sputum Gastrointestinal Gastrointestinal: Denies diarrhea, nausea or vomiting Genitourinary Genitourinary ED: Denies dysuria Musculoskeletal Musculoskeletal: Denies myalgias Integumentary Denies rash Neurologic Neurologic: Denies headache(s) or weakness Endocrine Endocrinology: Denies polydipsia or polyuria Allergic/Immunologic Allergic/Immunologic ED: Denies mouth swelling or urticaria EXAM Physical Exam Const Vital Signs: 08/21/21 11:50 08/21/21 14:46 08/21/21 14:49 Temperature 95.3 F L 97.1 F L Temperature Source Temporal Temporal Pulse Rate 82 70 Respiratory Rate 22 H 19 H Respiratory Effort Short of Breath Respiratory Pattern Tachypnea Blood Pressure 181/96 H 107/83 H Blood Pressure Mean 124 91 Pulse Ox 98 97 Oxygen Delivery Method Room Air Room Air Room Air 08/21/21 15:21 08/21/21 16:10 Temperature Temperature Source Pulse Rate 63 72 Respiratory Rate 13 28 H Respiratory Effort Respiratory Pattern Normal Blood Pressure 123/75 H Blood Pressure Mean 91 Pulse Ox 94 Oxygen Delivery Method Room Air Positive well nourished and well developed General Appearance ED: well developed and NAD; Negative for cyanotic or diaphoretic HEENT Reports moist mucous membranes Eyes General Eye ED: Negative for pale conjunctiva or scleral icterus Neck no JVD Chest Wall inspection of chest normal Resp No clear to auscultation bilaterally Auscultation: wheezes; Negative for rales or rhonchi Cardio regular rate and regular rhythm Back/Spine no CVA tenderness Extremity normal to inspection General Extremety ED: Negative for edema or tenderness General Extremity: Negative for edema Neuro oriented x3 Sensorium / Orientation: alert Psych mental status grossly normal Skin no rashes or lesions noted MDM MDM MDM Narrative Medical decision making narrative: Patient's Covid and influenza screens are negative. Chest x-ray shows no acute process. This was looked at by me and read by radiology. Patient had nonspecific white count elevation that might be due to to infection and/or recent steroid use. Electrolytes showed no marked abnormalities. There was a slight bump in her glucose that also may be due to steroid use. Troponin was negative. Patient's recheck. She feels markedly better. She thinks it was the Atrovent that helped her. She does not want to be admitted. I will write for Atrovent for her nebulizer. I will give a few days burst of steroids. She will finish her doxycycline. If she is worsening, pains, fevers worsening dyspnea or any other concerns she should return. Lab Data Attestation: I reviewed the patient's lab results. Labs: Laboratory Results - last 24 hr 08/21/21 08/21/21 14:50 14:50 WBC 12.9 H RBC 5.15 Hgb 15.0 Hct 44.1 MCV 85.6 MCH 29.1 MCHC 34.0 RDW Std Deviation 41.2 RDW Coeff of Rodrigo 13.2 Plt Count 368 MPV 9.5 Immature Gran % (Auto) 0.500 Neut % (Auto) 50.8 Lymph % (Auto) 39.6 Lamoure % (Auto) 6.0 Eos % (Auto) 2.2 Baso % (Auto) 0.9 Absolute Neuts (auto) 6.6 Absolute Lymphs (auto) 5.12 H Nucleated RBC % 0 Differential Comment Platelet Estimate ADEQUATE RBC Morphology NORM C+C Sodium 140 Potassium 3.9 Chloride 105 Carbon Dioxide 29.0 Anion Gap 6 BUN 19 H Creatinine 0.55 Estim Creat Clear Calc 100.56 Est GFR (MDRD) Af Amer 146 Est GFR (MDRD) Non-Af 120 BUN/Creatinine Ratio 34.8 H Glucose 148 H Calcium 8.5 Troponin I High Sens 4 Radiography Diagnostic Testing: Clinical Impression(s) from Imaging Studies Chest X-Ray 08/21/21 12:14 IMPRESSION: No acute abnormality is seen. Electronically Signed: Fili Sagastume MD at 12:27 EST , Service support , EKG Initial EKG: Comments: EKG done for dyspnea shows sinus rhythm with slightly bradycardic rate of 58. No ectopy. No acute ST elevation or depression. MI interval, QRS duration, QTc normal. Discharge Plan Triage Chief Complaint: General Illness ED Provider: Jono Castro Dx/Rx/DC Orders Clinical Impression: COPD with acute exacerbation Instructions: ED COPD Flare Prescriptions: New ipratropium bromide 0.02 % solution 2.5 ml inhalation Q6H PRN (Reason: shortness of breath or wheezing) Qty: 75 RF: 2 prednisone 20 MG tablet 60 mg PO DAILY Qty: 9 RF: 0 No Action trazodone 100 MG tablet 100 mg PO QHS RF: 0 gemfibrozil 600 MG tablet 600 mg PO BID RF: 0 alprazolam 0.5 MG tablet 0.5 mg PO QHS RF: 0 lisinopril 20 MG tablet 20 mg PO DAILY Qty: 30 RF: 0 albuterol sulfate [Ventolin HFA] 1 INHALER inhaler 1 - 2 puff inhalation Q4H PRN PRN (Reason: Wheezing) Qty: 1 RF: 0 Atenolol 50 MG tablet 50 mg PO DAILY RF: 0 furosemide 20 MG tablet 20 mg PO DAILY RF: 0 buspirone 5 MG tablet 7.5 mg PO BID RF: 0 sertraline [Zoloft] 100 MG tablet 200 mg PO QHS RF: 0 gabapentin [Neurontin] 300 MG capsule 600 mg PO BID RF: 0 metformin 500 MG tablet 500 mg PO BID RF: 0 potassium chloride 10 MEQ tablet 10 meq PO DAILY RF: 0 fluticasone furoate-vilanterol 1 EACH blister with device 1 ea IH DAILY RF: 0 Primary Care Provider: Susanna Monroe Referrals: Susanna Monroe MD [Primary Care Provider] - 3-5 Days Disposition Disposition: Home, Self Care
[2021-08-21 14:46] VITALS: BP 107/83; PULSE 61; PULSE 70; RESP 15; RESP 19; TEMP 36.2; O2SAT 97; O2SAT 98
[2021-08-21 14:49] VITALS: O2SAT 97
[2021-08-21] MEDS: MethylPREDNISolone 125 MG/2 ML Vial IV (15:06)
[2021-08-21 15:09] LABS: Absolute Lymphocyte Count 5.12 X10^3/uL (0.83-4.51); Absolute Neutrophil Count 6.6 X10^3/uL (2.0-7.7); Basophil# 0.11 X10^3/uL; Basophil% 0.9 % (0-1); Eosinophil# 0.29 X10^3/uL; Eosinophils% 2.2 % (0-5); Hematocrit 44.1 % (37-47); Lymphocyte # 5.12 X10^3/ul (0.83-4.51); Lymphocyte % 39.6 % (19-41); Mean Corpuscular Hgb 29.1 pg (27.0-32.0); Mean Corpuscular Volume 85.6 fL (81-99); Mean Platelet Vol. 9.5 fl (6.2-12.0); Monocyte# 0.77 X10^3/uL; NRBC Flagged by Analyzer 0 % (0-5); Neutrophil # 6.57 X10^3/uL (2.7-7.7); Neutrophil % 50.8 % (47-70); POSITIVE DIFFERENTIAL YES; Platelet Count 368 K/mm3 (150-450); RBC Distribution Width CV 13.2 % (11.6-14.6); RBC Distribution Width SD 41.2 fl (35.1-43.9); Red Blood Count 5.15 M/mm3 (4.2-5.4); White Blood Count 12.9 K/mm3 (4.4-11.0)
[2021-08-21 15:12] LABS: Differential Indicated SCAN CRITERIA MET
[2021-08-21 15:17] LABS: Anion Gap 6 (5-15); BUN 19 mg/dL (7-18); BUN/Creat Ratio 34.8 RATIO (10-20); Calcium,Total 8.5 mg/dL (8.5-10.1); Chloride 105 mmol/L (98-107); Creatinine, Serum 0.55 mg/dL (0.55-1.02); EST Glomerular Filtration Rate 120 mL/min (>60); Est Glom Filt Rate - Afr Amer 146 mL/min (>60); Estimated Creatinine Clearance 100.56 ml/min; Glucose 148 mg/dL (74-106); Potassium 3.9 mmol/L (3.5-5.1); Sodium Level 140 mmol/L (136-145); Troponin-I HS 4 pg/mL (3.0-54.0)
[2021-08-21] MEDS: Albuterol 2.5 MG/3 ML VIAL.NEB. INHALATION (15:18)
[2021-08-21] MEDS: Ipratropium/Albuterol Sulfate 3 ML AMPUL.NEB INHALATION (15:18)
[2021-08-21 15:21] VITALS: PULSE 63; RESP 13
[2021-08-21 15:55] LABS: Platelet Estimate ADEQUATE (ADEQ); Red Cell Morphology NORM C+C NORMAL (NORM C&C)
[2021-08-21 16:10] VITALS: BP 123/75; PULSE 72; RESP 28; O2SAT 94
[2021-08-21 16:39] VITALS: BP 143/87; PULSE 76; O2SAT 94
== END 2021-08-21 16:44 | disposition home or self-care (01) ==
PROVIDERS: Emergency Provider Emergency Medicine; PCP Internal Medicine
DX: J44.1 Chronic obstructive pulmonary disease with (acute) exacerbation (principal); F17.210 Nicotine dependence, cigarettes, uncomplicated
CPT/HCPCS: 71045; 80048; 84484; 85025; 87426; 87804; 93005; 94640; 94760; 96374; 99251; 99284; A4216; G0463

== ENCOUNTER 2021-10-04 14:25 | Outpatient (CLI) | payer MEDICARE, MEDICAID, SELFPAY ==
--- NOTE | 2021-10-04 14:29 | CT_ITS ---
STUDY: CT MAXILLOFACIAL SINUSES REASON FOR EXAM: Female, 61 years old. CHRONIC RHINOSINUSITIS RADIATION DOSAGE (If Supplied By Facility): CTDIvol = ( 33.06 ) mGy, DLP = ( 804.92 ) mGycm TECHNIQUE: The patient was scanned in a multi detector CT scanner. High resolution axial imaging was performed without the administration of intravenous contrast material. Sagittal and coronal images were reconstructed. Individualized dose optimization techniques were used for this CT. COMPARISON: Comparison is made with prior study dated 11/13/2018. FINDINGS: FRONTAL SINUSES: Normal aeration, without mucosal inflammatory disease. ETHMOIDAL SINUSES: Normal aeration, without mucosal inflammatory disease. MAXILLARY SINUSES: Normal aeration, without mucosal inflammatory disease. SPHENOIDAL SINUSES: Normal aeration, without mucosal inflammatory disease. There is patency of the bilateral maxillary infundibuli with normal uncinate processes, ethmoid bullae, and hiatus semilunaris. Normal bilateral middle turbinates. Normal bilateral inferior turbinates. Normal midline nasal septum. There is patency of the bilateral nasal airways. The visualized osseous structures are normal. The visualized bilateral orbital contents are normal. CT/Sinus/Facial Bone IMPRESSION: Normal CT examination of the maxillofacial sinuses. Electronically Signed: Fili Sagastume MD at 15:14 EST ,
== END 2021-10-04 23:59 | disposition short-term general hospital (02) ==
LOC: CT 14:28
PROVIDERS: PCP Internal Medicine; Referring Provider Otolaryngology; Visit Provider Otolaryngology
DX: J32.9 Chronic sinusitis, unspecified (principal)
CPT/HCPCS: 70486

== ENCOUNTER 2021-10-11 16:22 | Outpatient (CLI) | payer MEDICARE, MEDICAID, SELFPAY ==
--- NOTE | 2021-10-11 16:25 | CT_ITS ---
STUDY: CT CHEST WITHOUT CONTRAST- LOW DOSE SCREENING PROTOCOL REASON FOR EXAM: Female, 61 years old. Current smoker. 60 pack per year history. No current symptoms of lung cancer or pulmonary infection. Shared decision-making with referring PCP documented in patient''s record. RADIATION DOSAGE (If Supplied By Facility): CTDIvol = ( 4.02 ) mGy, DLP = ( 132.40 ) mGycm TECHNIQUE: Low dose screening CT examination performed from the base of the neck to the upper abdomen. Sagittal and coronal reformatted images performed. Sagittal and coronal MIP images provided. The measurements provided are average, rounded measurements per ACR guidelines. COMPARISON: 08/18/2015 FINDINGS: Mild emphysema. No noncalcified nodule or mass. There is no demonstrated pleural abnormality. Normal heart and pericardium. There are calcifications of the coronary arteries. Normal mediastinum. Normal hilar regions. Normal unenhanced pulmonary arteries. Normal aorta arch and descending thoracic aorta. Normal osseous structures. There is no demonstrated abnormality of the visualized upper abdomen. CT/Low Dose CT Lung Screening IMPRESSION: 1. No significant indeterminate incidental findings requiring additional imaging. 2. Incidental findings include mild emphysema.. ASSESSMENT CATEGORY: LungRADS 1 - Negative. Continue annual screening with LDCT in 12 months, per established ACR guidelines. Electronically Signed: Apollo Monteiro MD at 17:02 [facility] ,
== END 2021-10-11 23:59 | disposition home or self-care (01) ==
LOC: CT 16:24
PROVIDERS: PCP Internal Medicine
DX: F17.210 Nicotine dependence, cigarettes, uncomplicated (principal); J44.9 Chronic obstructive pulmonary disease, unspecified
CPT/HCPCS: 71271

== ENCOUNTER 2021-12-14 15:11 | Outpatient (CLI) | payer MEDICARE, MEDICAID, SELFPAY ==
[2021-12-14 15:28] LABS: Absolute Lymphocyte Count 3.94 X10^3/uL (0.83-4.51); Absolute Neutrophil Count 4.8 X10^3/uL (2.0-7.7); Basophil# 0.06 X10^3/uL; Basophil% 0.6 % (0-1); Eosinophil# 0.25 X10^3/uL; Eosinophils% 2.6 % (0-5); Hematocrit 45.5 % (37-47); Hemoglobin 15.6 g/dL (12.0-15.0); Lymphocyte # 3.94 X10^3/ul (0.83-4.51); Lymphocyte % 40.4 % (19-41); Mean Corp Hgb Conc 34.3 g/dL (32-36); Mean Corpuscular Hgb 29.5 pg (27.0-32.0); Mean Platelet Vol. 9.8 fl (6.2-12.0); Monocyte# 0.64 X10^3/uL; Monocyte% 6.6 % (0-10); NRBC Flagged by Analyzer 0 % (0-5); Neutrophil # 4.83 X10^3/uL (2.7-7.7); Neutrophil % 49.5 % (47-70); Platelet Count 298 K/mm3 (150-450); RBC Distribution Width CV 13.4 % (11.6-14.6); RBC Distribution Width SD 41.4 fl (35.1-43.9); Red Blood Count 5.29 M/mm3 (4.2-5.4); White Blood Count 9.8 K/mm3 (4.4-11.0)
[2021-12-14 15:39] LABS: Erythrocyte Sedimentation Rate 8 mm/hr (0-30)
[2021-12-14 15:59] LABS: AST(SGOT) 31 U/L (15-37); Alanine Aminotransfer ALT/SGPT 27 U/L (13-56); Albumin, Serum 3.8 g/dL (3.2-5.0); Alkaline Phosphatase 80 U/L (45-117); Anion Gap 5 (5-15); BUN 17 mg/dL (7-18); BUN/Creat Ratio 26.7 RATIO (10-20); Bilirubin, Direct 0.07 mg/dL (0.00-0.30); CRP < 2.90 mg/L (0.0-3.0); Calcium,Total 8.3 mg/dL (8.5-10.1); Chloride 108 mmol/L (98-107); Creatinine, Serum 0.64 mg/dL (0.55-1.02); EST Glomerular Filtration Rate 101 mL/min (>60); Est Glom Filt Rate - Afr Amer 122 mL/min (>60); Globulin 3.9 g/dL (2.2-4.2); Glucose 174 mg/dL (74-106); LDH 194 U/L (84-246); Potassium 4.1 mmol/L (3.5-5.1); Protein, Total 7.7 g/dL (6.4-8.2); Sodium Level 137 mmol/L (136-145); Thyroid Stim Hormone (TSH) 0.93 uIU/mL (0.358-3.74)
[2021-12-19 12:00] LABS: Anti-Centromere B Ab <0.2 AI (0.0-0.9); Anti-Chromatin <0.2 AI (0.0-0.9); Anti-Jo <0.2 AI (0.0-0.9); Anti-Scleroderma-70 AB <0.2 AI (0.0-0.9); Endomysial Antibody IgA Negative (Negative); Immunoglobulin A 231 mg/dL (87-352); RNP Ab 0.2 AI (0.0-0.9); SJOGREN'S Anti-SS-A test < 0.2 AI (0.0-0.9); SJOGREN'S Anti-SS-B test < 0.2 AI (0.0-0.9); Smith Ab <0.2 AI (0.0-0.9)
[2021-12-19 13:45] LABS: Gastrin, Serum 26 pg/mL (0-115); t-Transglutaminase IgA <2 U/mL (0-3)
[2021-12-19 16:59] LABS: Anti-dsDNA Ab <1 IU/mL (0-9)
== END 2021-12-14 23:59 | disposition home or self-care (01) ==
PROVIDERS: PCP Internal Medicine; Referring Provider Nurse Practitioner Adult Health; Visit Provider Nurse Practitioner Adult Health
DX: R10.9 Unspecified abdominal pain (principal); R19.7 Diarrhea, unspecified; I10 Essential (primary) hypertension
CPT/HCPCS: 36415; 80053; 82248; 82784; 82941; 83516; 83615; 84443; 85025; 85652; 86140; 86225; 86235; 86255

== ENCOUNTER 2021-12-15 13:47 | Outpatient (CLI) | payer MEDICARE, MEDICAID, SELFPAY ==
[2021-12-19 15:28] LABS: Giardia Lamblia, Stool EIA Negative (Negative)
== END 2021-12-15 23:59 | disposition home or self-care (01) ==
LOC: LAB 13:48
PROVIDERS: PCP Internal Medicine; Referring Provider Nurse Practitioner Adult Health; Visit Provider Nurse Practitioner Adult Health
DX: R10.9 Unspecified abdominal pain (principal); R19.7 Diarrhea, unspecified
CPT/HCPCS: 87177; 87209; 87329

== ENCOUNTER 2021-12-22 14:23 | Outpatient (CLI) | payer MEDICARE, MEDICAID, SELFPAY ==
--- NOTE | 2021-12-22 14:27 | CT_ITS ---
STUDY: CT ABDOMEN AND PELVIS WITH CONTRAST REASON FOR EXAM: Female, 61 years old. Abd pain, diarrhea -- oral and iv please RADIATION DOSAGE (If Supplied By Facility): CTDIvol = ( 16.79 ) mGy, DLP = ( 1220.08 ) mGycm TECHNIQUE: Transaxial images were obtained from the dome of the diaphragm to the symphysis pubis without oral contrast. IV 100mL Isovue-300 was administered. Sagittal and coronal images were reconstructed. Individualized dose optimization techniques were used for this CT. COMPARISON: None. FINDINGS: The visualized lung bases are unremarkable. The visualized portions of the heart are within normal limits. There is decreased attenuation of the liver consistent with steatosis. Mild hepatomegaly. The patient is status post cholecystectomy. Normal spleen. Normal pancreas. Normal bilateral adrenal glands. Normal right kidney. Normal left kidney. There is a small hiatal hernia. Normal small intestine. Normal colon. The appendix is visualized and appears normal. There is diffuse atherosclerotic calcification of the abdominal aorta, without a demonstrated aneurysm. Normal inferior vena cava. Normal retroperitoneum. Normal urinary bladder. There is absence of the uterus consistent with a prior hysterectomy. Normal abdominal wall. There are mild degenerative changes of the visualized lumbar spine. CT/Abdomen/Pelvis WITH Contrast IMPRESSION: Mild hepatomegaly and fatty infiltration of the liver. The patient is status post cholecystectomy. Electronically Signed: Fili Sagastume MD at 15:08 EDT ,
== END 2021-12-22 23:59 | disposition home or self-care (01) ==
LOC: CT 14:25
PROVIDERS: PCP Internal Medicine; Visit Provider Nurse Practitioner Adult Health
DX: R10.9 Unspecified abdominal pain (principal); R19.7 Diarrhea, unspecified
CPT/HCPCS: 74177; Q9967

== ENCOUNTER → 2021-12-26 | Outpatient (CLI) | payer MEDICARE, MEDICAID, SELFPAY ==
--- NOTE | 2021-12-26 10:21 | NM_ITS ---
INDICATION: nausea, epigastric pain, early satiety, diarrhea EXAMINATION: NUCLEAR MEDICINE GASTRIC EMPTYING - NM Gastric Emptying Study (solid, liquid or both) TECHNIQUE: Radiopharmaceutical (solid portion of the exam): 1 mCi of Tc99m Sulfur Colloid mixed with oat meal. Oral administration. Imaging: Radiopharmaceutical (liquid portion of the exam): 1 mCi of Tc99m Sulfur Colloid mixed with orange juice. Oral administration. Imaging: COMPARISON: None. FINDINGS: Gastric emptying time with solids: 60 minutes, within normal limits. NM/Gastric Emptying Study IMPRESSION: Normal gastric emptying time with liquids and solids. Electronically Signed: Kahlil Leone MD at 2:43 EDT ,
== END | disposition home or self-care (01) ==
LOC: NM 10:18
PROVIDERS: PCP Internal Medicine; Referring Provider Nurse Practitioner Adult Health; Visit Provider Nurse Practitioner Adult Health
DX: E11.9 Type 2 diabetes mellitus without complications (principal); R10.13 Epigastric pain; R19.7 Diarrhea, unspecified; R11.0 Nausea
CPT/HCPCS: 78264; A9541

== ENCOUNTER → 2022-01-09 | Outpatient (CLI) | payer MEDICARE, MEDICAID, SELFPAY ==
--- NOTE | 2022-01-09 07:28 | US_ITS ---
STUDY: ABDOMINAL ULTRASOUND - ELASTOGRAPHY REASON FOR VISIT: Female, 61 years old. Fatty infiltration of the liver. TECHNIQUE: Liver stiffness measurements were obtained on a [employer] RS 85 ultrasound machine using a CA 1-7 probe following the SRU guidelines. 3 measurements were obtained using a 2-D-SWE method. The IQR/M was 22% suggesting a quality data set. TECHNICAL QUALITY: Adequate. COMPARISON: Comparison is made with prior study done earlier in the day. FINDINGS: Liver: Fatty infiltration of the liver. Median liver stiffness measured 7 kPa. US/Elastography Parenchyma/Organ IMPRESSION: Liver stiffness measures 7 kPa compatible with F2-F3 (Mild to moderate liver fibrosis) Metavir score. Electronically Signed: Fili Sagastume MD at 9:57 EDT ,
--- NOTE | 2022-01-09 07:48 | US_ITS ---
STUDY: ABDOMINAL ULTRASOUND - RIGHT UPPER QUADRANT REASON FOR VISIT: Female, 61 years old FATTY LIVER TECHNIQUE: Ultrasound evaluation of the right upper quadrant was performed with real-time and static lema-scale imaging. TECHNICAL QUALITY: Adequate. COMPARISON: None. FINDINGS: Liver: The liver measures 13.9 cm. There is increased echogenicity consistent with fatty infiltration. The bile ducts are within normal limits. There is hepatic color flow. The direction of portal flow is hepatopetal. There is no demonstrated mass lesion. Gallbladder: The patient is status post cholecystectomy.. Common Bile Duct (C.B.D.): The common bile duct measures 4 mm. Pancreas: Normal size of the head, body and tail of the pancreas. There is normal echogenicity of the pancreas. There is no demonstrated pancreatic mass or cyst. Right Kidney: Normal size of the right kidney. The right kidney measures 14.9 cm. Normal renal cortex. The right cortex measures 2.3 cm. There is no demonstrated renal mass or cyst. There is no right hydronephrosis. US/Abdomen Limited IMPRESSION: Status post cholecystectomy with fatty infiltration of the liver. Electronically Signed: Apollo Monteiro MD at 9:42 EDT ,
== END | disposition home or self-care (01) ==
PROVIDERS: PCP Internal Medicine; Referring Provider Nurse Practitioner Adult Health; Visit Provider Nurse Practitioner Adult Health
DX: K76.0 Fatty (change of) liver, not elsewhere classified (principal)
CPT/HCPCS: 76705; 76981

== ENCOUNTER → 2022-01-15 | Outpatient (CLI) | payer MEDICARE, MEDICAID, SELFPAY ==
[2022-01-15 10:43] LABS: Hemoglobin A1c 7.1 % (3.8-5.6)
[2022-01-15 10:52] LABS: CPK Total, Creatine Kinase 382 U/L (26-192); Cholesterol 134 mg/dL (200); Ferritin 76 ng/mL (8-252); High Density Lipoprotein 26 mg/dL; Triglycerides 285 mg/dL; Very Low Density Lipoprotein 57 mg/dL (5-40)
[2022-01-15 11:07] LABS: Prothrombin Time (Protime)PT. 12.8 SECONDS (11.7-14.9)
[2022-01-15 11:16] LABS: HIV - WCH Non-Reactive (Nonreactive)
[2022-01-16 16:46] LABS: Anti-Mitochondrial AB <20.0 Units (0.0-20.0)
[2022-01-19 08:12] LABS: Angiotensin Convert Enzyme 21 U/L (14-82); Ceruloplasmin 29.3 mg/dL (19.0-39.0); Cytoplasmic Ab (C-ANCA) <1:20 titer (Neg:<1:20); HEPATITIS B SURFACE AG Negative (Negative); Hep C Antibodies <0.1 s/co ratio (0.0-0.9); Hepatitis A IgM Antibody Negative (Negative); Hepatitis B Core AB IgM Negative (Negative)
[2022-01-19 13:34] LABS: AFP, Tumor Marker 3.8 ng/mL (0.0-9.2); Anti-Smooth Muscle ABS 3 Units (0-19); Copper, Serum or Plasma 160 ug/dL (80-158); Haptoglobin 148 mg/dL (37-355); Perinuclear Ab (P-ANCA) <1:20 titer (Neg:<1:20)
== END | disposition home or self-care (01) ==
LOC: LAB 10:03
PROVIDERS: PCP Internal Medicine; Referring Provider Nurse Practitioner Adult Health; Visit Provider Nurse Practitioner Adult Health
DX: E78.2 Mixed hyperlipidemia (principal); E11.9 Type 2 diabetes mellitus without complications; K76.0 Fatty (change of) liver, not elsewhere classified; R19.7 Diarrhea, unspecified; I10 Essential (primary) hypertension; R07.9 Chest pain, unspecified; R10.9 Unspecified abdominal pain
CPT/HCPCS: 36415; 80061; 80074; 82105; 82140; 82164; 82390; 82525; 82550; 82728; 83010; 83036; 83516; 85610; 86256; 86703

== ENCOUNTER → 2022-01-24 | Outpatient (CLI) | payer MEDICARE, MEDICAID, SELFPAY ==
--- NOTE | 2022-01-24 06:35 | ECHOD_ITS ---
Reason For Study: Dyspnea/SOB Procedure This was a 2D Doppler, Color Flow transthoracic echocardiogram. Exam performed in department. Left Ventricle Normal LV size. Left ventricular systolic function is normal. The estimated ejection fraction is 70 %. Diastolic function is indeterminate. No regional wall motion abnormalities noted. Right Ventricle Normal RV size. Normal systolic function. Atria Normal left atrium. Normal right atrium. No doppler evidence for ASD. Mitral Valve There is no mitral annular calcification. Normal mitral valve. Trivial mitral valve insufficiency. Tricuspid Valve Normal tricuspid valve. Trivial tricuspid valve insufficiency. Unable to estimate RV systolic pressure due to insufficient tricuspid regurgitant envelope. Aortic Valve Normal aortic valve. Trisinus/trileaflet aortic valve. Pulmonic Valve The pulmonic valve is not well visualized. Great Vessels The aortic root is not well visualized. Pericardium/Pleural No pericardial effusion. MMode/2D Measurements & Calculations LVIDd: 5.5 cm IVSd: 0.99 cm LA dimension: 4.0 cm LVIDs: 3.2 cm LVPWd: 0.90 cm RVDd: 3.2 cm FS: 42.2 % LAV(MOD-bp): 46.2 ml LA A4 area: 16.5 cm2 RA A4 area: 11.2 cm2 LAV(MOD-bp) Indexed: 22.7 ml/m2 LAV(MOD-sp2): 46.4 ml LAV(MOD-sp4): 45.6 ml Time Measurements MV dec time: 0.18 sec Doppler Measurements & Calculations MV E max drake: 94.7 cm/sec Lat Peak E' Drake: 6.1 cm/sec Med Peak E' Drake: 6.2 cm/sec MV A max drake: 83.0 cm/sec E/E' lat: 15.6 E/E' med: 15.3 MV E/A: 1.1 MV V2 max: 89.3 cm/sec MV P1/2t max drake: 87.1 cm/sec Ao V2 max: 135.6 cm/sec MV max P.2 mmHg MV P1/2t: 58.0 msec Ao max P.4 mmHg MV V2 mean: 61.6 cm/sec MV dec slope: 440.3 cm/sec2 MV mean P.7 mmHg MVA(P1/2t): 3.8 cm2 MV V2 VTI: 22.9 cm LV V1 max: 108.0 cm/sec PA V2 max: 104.0 cm/sec LV V1 max P.7 mmHg ECHO/Echo Complete Interpretation Summary Left ventricular systolic function is normal. The estimated ejection fraction is 70 %. Trivial mitral valve insufficiency. Trivial tricuspid valve insufficiency. Unable to estimate RV systolic pressure due to insufficient tricuspid regurgita nt envelope. Diastolic function is indeterminate. Ordering Physician: Tarik Villegas Referring Physician: Susanna Monroe M.D. Performed By: Julián Aguiar RCS
--- NOTE | 2022-01-24 10:50 | STRESSREP ---
Stress Test Report Date: 01-24-2022 Procedure: Pharmacologic stress nuclear imaging study Indications: Shortness of breath/dyspnea on exertion; chest discomfort Consent: Per the patient Procedure: The patient underwent pharmacologic (Regadenoson 0.4mg ) evaluation with a peak heart rate of 102 beats per minute (64%predicted maximal heart rate) and a peak blood pressure of 118/70 mmHg. The baseline ECG demonstrated normal sinus rhythm. The peak pharmacologic ECG demonstrated no obvious ECG changes. There were no cardiac dysrhythmias pretest, during pharmacologic infusion, or recovery. There was no complaint of chest discomfort during pharmacologic infusion or recovery. The examination was discontinued secondary to completion of protocol. Impression: 1. Pharmacologic (Regadenoson) evaluation 2. Peak pharmacologic ECG with no obvious ECG changes. 3. There were no cardiac dysrhythmias pretest, during pharmacologic infusion, or recovery. 4. Nuclear images pending Myocardial perfusion imaging study: Technique: The patient was injected with 14.1 millicuries of technetium 99m Cardiolite and subsequently rest SPECT Cardiolite nuclear imaging was obtained in the horizontal long, vertical long, and short axis views. The patient underwent pharmacologic (Regadenoson) evaluation with a peak heart rate of 102 beats per minute (64% percent predicted maximal heart rate) and a peak blood pressure of 118/70 mmHg. The patient was injected with 44.0 millicuries of technetium 99m Cardiolite and subsequently stress SPECT Cardiolite nuclear imaging was obtained in the horizontal long, vertical long, and short axis views. A gated Cardiolite study at peak stress was obtained. Interpretation: Rest and stress SPECT Cardiolite nuclear imaging status post realignment, normalization, and attenuation correction demonstrate body motion during image acquisition and otherwise uniform tracer uptake and myocardial perfusion appearing within normal limits. There is end systolic thickening and brightening. The gated Cardiolite study demonstrates myocardial thickening and inward wall motion. The reported LVEF is 81%. Impression: 1. Rest and stress SPECT Cardiolite nuclear imaging demonstrate relative uniform tracer uptake and myocardial perfusion appearing within normal limits. 2. The gated Cardiolite study reports an LVEF of 81%. This note was generated with [email or web address] software. It may contain incorrect words, spelling, and punctuation that were not noted in checking the note before signing.
== END | disposition home or self-care (01) ==
LOC: CVS 06:29
PROVIDERS: PCP Internal Medicine; Referring Provider Internal Medicine Cardiovascular Disease; Visit Provider Internal Medicine Cardiovascular Disease
DX: R06.02 Shortness of breath (principal); R07.9 Chest pain, unspecified
CPT/HCPCS: 78452; 93017; 93306; A9500; A4216; J2785

== ENCOUNTER → 2022-06-01 | Outpatient (CLI) | payer MEDICARE, MEDICAID, SELFPAY ==
--- NOTE | 2022-06-01 07:46 | US_ITS ---
STUDY: ABDOMINAL ULTRASOUND - ELASTOGRAPHY REASON FOR VISIT: Female, 61 years old. Fatty infiltration of the liver. TECHNIQUE: Liver stiffness measurements were obtained on a [employer] RS 85 ultrasound machine using a CA 1-7 probe following the SRU guidelines. 3 measurements were obtained using a 2-D-SWE method. The IQR/M was 19% suggesting a quality data set. TECHNICAL QUALITY: Adequate. COMPARISON: Comparison is made with prior examination dated 01/09/2022. FINDINGS: Liver: Fatty infiltration of the liver. Median liver stiffness measured 7.4 kPa. US/Elastography Parenchyma/Organ IMPRESSION: Liver stiffness measures 7.4 kPa compatible with F2-F3 (Mild to moderate liver fibrosis) Metavir score. Electronically Signed: Fili Sagastume MD at 12:40 EDT ,
--- NOTE | 2022-06-01 07:47 | US_ITS ---
STUDY: ABDOMINAL ULTRASOUND - RIGHT UPPER QUADRANT REASON FOR VISIT: Female, 61 years old FATTY LIVER, BLOATING -- HX OF CHOLECYSTECTOMY TECHNIQUE: Ultrasound evaluation of the right upper quadrant was performed with real-time and static lema-scale imaging. TECHNICAL QUALITY: Adequate. COMPARISON: Comparison is made with prior study dated 01/09/2022. FINDINGS: Liver: The liver is enlarged and measures 20.1 cm. There is increased echogenicity consistent with fatty infiltration. The bile ducts are within normal limits. There is hepatic color flow. The direction of portal flow is hepatopetal. There is no demonstrated mass lesion. Gallbladder: The patient is status post cholecystectomy. Common Bile Duct (C.B.D.): The common bile duct measures 6.3 mm. Pancreas: Normal size of the head, body and tail of the pancreas. There is normal echogenicity of the pancreas. There is no demonstrated pancreatic mass or cyst. Right Kidney: Normal size of the right kidney. The right kidney measures 14.2 cm x 4.9 cm x 4.7 cm. Normal renal cortex. The right cortex measures 1.9 cm. There is no demonstrated renal mass or cyst. There is no right hydronephrosis. US/Abdomen Limited IMPRESSION: Hepatomegaly and fatty infiltration of the liver. The patient is status post cholecystectomy. Electronically Signed: Fili Sagastume MD at 12:39 EDT ,
== END | disposition home or self-care (01) ==
LOC: US 07:46
PROVIDERS: PCP Internal Medicine; Referring Provider Nurse Practitioner Adult Health; Visit Provider Nurse Practitioner Adult Health
DX: K76.0 Fatty (change of) liver, not elsewhere classified (principal)
CPT/HCPCS: 76705; 76981

== ENCOUNTER → 2022-06-20 | Outpatient (CLI) | payer MEDICARE, MEDICAID, SELFPAY ==
[2022-06-20 18:08] LABS: CRP < 2.90 mg/L (0.0-3.0)
[2022-06-22 16:09] LABS: Endomysial Antibody IgA Negative (Negative)
[2022-06-23 11:33] LABS: Immunoglobulin A 234 mg/dL (87-352); t-Transglutaminase IgA <2 U/mL (0-3)
== END | disposition home or self-care (01) ==
LOC: MTLAB 15:20
PROVIDERS: PCP Internal Medicine; Referring Provider Internal Medicine Gastroenterology; Visit Provider Internal Medicine Gastroenterology
DX: R19.7 Diarrhea, unspecified (principal)
CPT/HCPCS: 36415; 82784; 83516; 86140; 86255

== ENCOUNTER 2022-07-02 13:56 | Emergency (ER) | payer MEDICARE, MEDICAID, SELFPAY ==
[2022-07-02 13:57] VITALS: BP 167/111; PULSE 82; RESP 20; TEMP 36.4; O2SAT 97; BMI 31.6
--- NOTE | 2022-07-02 15:05 | CT_ITS ---
STUDY: CT Abdomen And Pelvis W/O Contrast Injection 07/02/2022 4:25 PM REASON FOR EXAM: Female, 62 years old. Abdominal pain right flank pain Individualized dose optimization techniques were used for this CT. COMPARISON: 12.22.21 TECHNIQUE: CT Abdomen And Pelvis W/O Contrast Injection FINDINGS: There are atherosclerotic calcifications of visualized coronary arteries. The visualized portions of the heart are within normal limits. Normal liver. There is non-visualization of the gallbladder, which may be secondary to either contraction or a prior cholecystectomy. Normal spleen. Normal pancreas. Normal bilateral adrenal glands. No acute findings of the right kidney. No acute findings of the left kidney. Normal visualized stomach. Normal small intestine. Stool throughout the colon. There are surgical clips in the region of the appendix consistent with a prior appendectomy. There are calcifications of the abdominal aorta. This is consistent for atherosclerotic disease. There is NO abdominal aortic aneurysm. Vascular workup can be obtained based on clinical correlation. Normal inferior vena cava. Subcentimeter mesenteric lymph nodes. Normal urinary bladder. There is absence of the uterus consistent with a prior hysterectomy. There is an umbilical hernia containing fat. There are diffuse degenerative changes of the visualized lumbar spine. CT/Abdomen/Pelvis without Cont IMPRESSION: (NOT LISTED IN ORDER OF SIGNIFICANCE) There are no acute findings. Other findings as above. Electronically Signed: Luciano Celis MD at 16:28 EDT ,
--- NOTE | 2022-07-02 15:08 | EDS_ITS ---
HPI History of Present Illness Chief Complaint: Hyperglycemia Informant: patient Narrative Narrative: Patient presents with high blood sugars. She states for about 3 weeks she has been coughing. She has been on 3 courses of antibiotics. She was on 2 courses of prednisone. She just stopped prednisone today. She states the breathing issues are getting better now. That is not bothering her. But when she saw the primary physician today in follow-up, they checked her urine and it had a lot of glucose in it. They told her to go home and check her blood sugar and if it was high come to the emergency department. She checked it at home and it was 380. She does not routinely check her blood sugar so she does not know what her baseline is. They did also do changes from metformin 500 twice daily to a long- acting dose at the same level. This was done about a month ago. She does not know if this changed her sugars. She does admit to polyuria and mild polydipsia. She also admits to some intermittent right flank pain. She also started this whole process with a UTI. The culture was positive for 50 200,000 Klebsiella. No sensitivities were done on my chart.. [facility] Medical History Abdominal pain Anxiety and depression Arthritis COPD (chronic obstructive pulmonary disease) Depression Diarrhea Elevated CPK Fatty liver Hemorrhage of gastrointestinal tract Mixed hyperlipidemia YARY treated with BiPAP Osteoarthritis Postoperative anemia Type 2 diabetes mellitus Home Medications gemfibrozil 600 mg tablet 600 mg PO BID 06/13/14 [History Last Taken 07/19/15 600 MG] trazodone 100 mg tablet 100 mg PO QHS 06/13/14 [History Last Taken 07/19/15 100 MG] alprazolam 0.5 mg tablet 0.5 mg PO QHS ANXIETY 07/30/15 [History Last Taken 2 Weeks Ago ~07/16/15 2 TABS] lisinopril 20 mg tablet 20 mg PO DAILY #30 TABLETS 08/02/15 [Rx Last Taken Unknown] albuterol sulfate 90 mcg/actuation aerosol inhaler (Ventolin HFA) 1 - 2 puff inhalation Q4H PRN PRN Wheezing ##1 08/08/15 [Rx Last Taken Unknown] furosemide 20 mg tablet 20 mg PO DAILY 09/26/15 [History Last Taken Unknown] buspirone 5 mg tablet 7.5 mg PO BID 07/11/18 [History Last Taken Unknown] metformin 500 mg tablet,extended release 24 hr 500 mg PO BID 07/11/18 [History Last Taken Unknown] potassium chloride 10 mEq tablet,extended release(part/cryst) 10 meq PO DAILY 07/11/18 [History Last Taken Unknown] sertraline 100 mg tablet (Zoloft) 200 mg PO QHS 07/11/18 [History Last Taken Unknown] fluticasone furoate 100 mcg-vilanterol 25 mcg/dose inhalation powder 1 ea IH DAILY 07/29/19 [History Last Taken Unknown] ipratropium bromide 0.02 % solution for inhalation 2.5 ml inhalation Q6H PRN shortness of breath or wheezing #75 mL 08/21/21 [Rx Last Taken Unknown] albuterol sulfate 2.5 mg/3 mL (0.083 %) solution for nebulization 2.5 mg inhalation Q4H PRN 11/15/21 [History Last Taken Unknown] atenolol 50 mg tablet 50 mg PO DAILY 11/15/21 [History Last Taken Unknown] cetirizine 10 mg tablet 10 mg PO DAILY PRN 11/15/21 [History Last Taken Unknown] gabapentin 300 mg capsule (Neurontin) 600 mg PO .COMPLEX 11/15/21 [History Last Taken Unknown] ibuprofen 600 mg tablet 600 mg PO BID 11/15/21 [History Last Taken Unknown] ketoconazole 2 % topical cream 1 applic topical DAILY 11/15/21 [History Last Taken Unknown] aspirin 81 mg tablet,delayed release 81 mg PO DAILY #1 TAB 01/04/22 [Rx Last Taken Unknown] fluticasone propionate 50 mcg/actuation nasal spray,suspension (Allergy Relief (fluticasone)) 2 spray intranasal DAILY 01/04/22 [History Last Taken Unknown] vitamin E mixed 400 unit capsule 800 unit PO DAILY 02/16/22 [History Last Taken Unknown] ursodiol 300 mg capsule 300 mg PO BID #60 caps 02/26/22 [Rx Last Taken Unknown] Allergy/AdvReac Type Severity Reaction Status Date / Time hydromorphone [From Dilaudid] Allergy Intermediate Altered Verified 07/02/22 14:00 mental status pseudoephedrine Allergy Intermediate Tachycardia Verified 07/02/22 14:00 acetaminophen [From Vicodin] Allergy Upset Verified 07/02/22 14:00 Stomach fluoxetine [From Prozac] Allergy Chest Verified 07/02/22 14:00 tightness house dust mite Allergy NEEDS Verified 07/02/22 14:00 FOLLOW-UP hydrocodone [From Vicodin] Allergy Upset Verified 07/02/22 14:00 Stomach Penicillins Allergy Hives Verified 07/02/22 14:00 Family History Mother Glaucoma Cervical cancer Asthma Father , at 77 Myocardial infarction Cancer Lung, metastatic to bone CAD (coronary artery disease) History of coronary artery bypass surgery Aortic aneurysm and dissection Sister Colon polyp Thyroid disorder Lung cancer Surgical History H/O vaginal hysterectomy History of appendectomy History of back surgery History of bladder suspension procedure History of lumbar laminectomy History of total right knee replacement Hx of cholecystectomy Hx of tonsillectomy S/P total knee arthroplasty Tubal ligation status Social History Smoking Status: Current every day smoker tobacco type: cigarettes alcohol intake: never substance use type: does not use caffeine: Yes Type: carbonated beverages Number of servings: 2 ROS ROS ED Constitutional Constitutional ED: Denies chills or fever(s) Eyes Eyes: Denies change in vision ENT ENT ED: Denies rhinorrhea or sore throat Cardiovascular Cardiovascular: Denies chest pain or palpitations Respiratory/Chest Respiratory/Chest: Reports cough and other Details: See HPI. Symptoms are getting better now. ; Denies dyspnea Gastrointestinal Gastrointestinal: Denies nausea or vomiting Genitourinary Genitourinary ED: Reports urinary frequency; Denies dysuria or hematuria Musculoskeletal Musculoskeletal: Denies myalgias Neurologic Neurologic: Denies headache(s) Endocrine Endocrinology: Reports polydipsia and polyuria Hematologic/Lymphatic Hematologic/Lymphatic: Denies easy bleeding or easy bruising Allergic/Immunologic Allergic/Immunologic ED: Denies urticaria EXAM Physical Exam Const Vital Signs: 07/02/22 13:57 07/02/22 16:20 Temperature 97.6 F L Temperature Source Temporal Pulse Rate 82 73 Respiratory Rate 20 H 16 Blood Pressure 167/111 H 126/78 H Blood Pressure Mean 129 94 Pulse Ox 97 96 Oxygen Delivery Method Room Air Room Air Positive well nourished and well developed Constitutional Narrative: Triage note mention diaphoresis. She is not diaphoretic now. She states she has not had sweats except when she was sick with respiratory symptoms and she had fevers and chills. She states she thinks those are gone. General Appearance ED: well developed and NAD; Negative for cyanotic, diaphoretic or pallor HEENT HEENT Narrative: Mildly dry mucous membranes Eyes General Eye ED: Negative for scleral icterus Neck no lymphadenopathy and no JVD Chest Wall inspection of chest normal Resp normal respiratory effort Resp Narrative: Lungs actually sound overall clear. Auscultation: Negative for rales, rhonchi or wheezes Cardio regular rate and regular rhythm GI normal to inspection, nondistended, normoactive bowel sounds GI Narrative: Abdomen is actually benign. She states sometimes she gets pain in the right flank or right lower quadrant but has been getting that for 3 weeks. She then states she has been getting it actually longer. She saw Dr. Caceres for this. She was then seen Dr. Ordonez for this. She is not sure if it is related to the frequent urination. However, her exam is actually benign. She does report that she has a history of an enlarged liver but that something they were going to watch at this time. Back/Spine no CVA tenderness Extremity normal to inspection Psych mental status grossly normal Skin no rashes or lesions noted General Skin Exam: Negative for pallor MDM MDM MDM Narrative Medical decision making narrative: Blood work showed minimal elevation of her white count and hemoglobin which are nonspecific. This might be also due to some mild dehydration from hyperglycemia . Electrolytes are overall good other than her sugar at 332. Urine shows no sign of infection. Sugars come down to about 306. However, patient has stopped her prednisone so her blood sugar should get under better control now. We also discussed increasing her metformin from 500 twice daily to 1000 twice daily. We discussed reasons to return Lab Data Attestation: I reviewed the patient's lab results. Labs: Laboratory Results - last 24 hr 07/02/22 07/02/22 07/02/22 14:00 15:20 15:20 WBC 13.4 H RBC 5.45 H Hgb 15.7 H Hct 46.2 MCV 84.8 MCH 28.8 MCHC 34.0 RDW Std Deviation 38.7 RDW Coeff of Rodrigo 12.8 Plt Count 362 MPV 9.8 Immature Gran % (Auto) 0.900 Neut % (Auto) 69.7 Lymph % (Auto) 25.0 [place] % (Auto) 2.5 Eos % (Auto) 1.0 Baso % (Auto) 0.9 Absolute Neuts (auto) 9.3 H Absolute Lymphs (auto) 3.35 Nucleated RBC % 0 Sodium 135 L Potassium 3.9 Chloride 100 Carbon Dioxide 29.0 Anion Gap 6 BUN 17 Creatinine 0.79 Estim Creat Clear Calc 69.12 Est GFR (MDRD) Af Amer 95 Est GFR (MDRD) Non-Af 78 BUN/Creatinine Ratio 21.5 H Glucose 332 H Calcium 8.8 Urine Color Yellow Urine Clarity Clear Urine pH 6.0 Ur Specific [place] 1.010 Urine Protein Negative Urine Glucose (UA) Normal Urine Ketones Negative Urine Occult Blood Negative Urine Nitrite Negative Urine Bilirubin Negative Urine Urobilinogen Normal Ur Leukocyte Esterase Negative Urine RBC 0 SEEN Urine WBC 0 SEEN Ur Squamous Epith Cells 0-5 SEEN Urine Bacteria RARE Urine Mucus 0 SEEN Radiography Diagnostic Testing: Clinical Impression(s) from Imaging Studies Abdomen/Pelvis CT 07/02/22 15:05 IMPRESSION: (NOT LISTED IN ORDER OF SIGNIFICANCE) There are no acute findings. Other findings as above. Electronically Signed: Luciano Celis MD at 16:28 EDT , CT scan of the abdomen showed no acute process. Discharge Plan Triage Chief Complaint: Hyperglycemia ED Provider: Jono Castro Dx/Rx/DC Orders Clinical Impression: Acute hyperglycemia, Adverse effect of adrenal cortical steroids Instructions: High Blood Sugar (Hyperglycemia) Prescriptions: No Action fluticasone propionate [Allergy Relief (fluticasone)] 50 mcg/actuation spray,suspension 2 spray intranasal DAILY Rx Instructions: administer into each nostril aspirin 81 mg tablet,delayed release (DR/EC) 81 mg PO DAILY Qty: 1 0RF albuterol sulfate 2.5 mg /3 mL (0.083 %) solution for nebulization 2.5 mg inhalation Q4H PRN ketoconazole 2 % cream 1 applic topical DAILY ibuprofen 600 mg tablet 600 mg PO BID cetirizine 10 mg tablet 10 mg PO DAILY PRN atenolol 50 mg tablet 50 mg PO DAILY vitamin E mixed 400 unit capsule 800 unit PO DAILY trazodone 100 MG tablet 100 mg PO QHS Label Comments: Mood/anti-anxiety gemfibrozil 600 MG tablet 600 mg PO BID Label Comments: Cholesterol alprazolam 0.5 MG tablet 0.5 mg PO QHS Label Comments: anti-anxiety TAKES 2 TABS OF 0.5MG @ HS lisinopril 20 MG tablet 20 mg PO DAILY Qty: 30 0RF albuterol sulfate [Ventolin HFA] 1 INHALER inhaler 1 - 2 puff inhalation Q4H PRN PRN (Reason: Wheezing) Qty: 1 0RF furosemide 20 MG tablet 20 mg PO DAILY Label Comments: buspirone 5 MG tablet 7.5 mg PO BID Label Comments: anti-anxiety sertraline [Zoloft] 100 MG tablet 200 mg PO QHS metformin 500 MG tablet 500 mg PO BID potassium chloride 10 MEQ tablet 10 meq PO DAILY gabapentin [Neurontin] 300 mg capsule 600 mg PO .COMPLEX Rx Instructions: 600 mg PO take 2 caps in the am and 3 caps in the evening; fluticasone furoate-vilanterol 1 EACH blister with device 1 ea IH DAILY ipratropium bromide 0.02 % solution 2.5 ml inhalation Q6H PRN (Reason: shortness of breath or wheezing) Qty: 75 2RF ursodiol 300 mg capsule 300 mg PO BID Qty: 60 11RF Primary Care Provider: Susanna Monroe Referrals: Susanna Monroe MD [Primary Care Provider] - 3-5 Days if not improving Activity Restrictions/Additional Instructions: You may increase your metformin to 1000 mg twice a day until your blood sugars are under control and then go back to your normal dose. Follow-up with your physician for ongoing management. Disposition Disposition: Home, Self Care
[2022-07-02] MEDS: 0.9% Normal Saline 1,000 ML 1000 ML IV (15:19)
[2022-07-02 15:32] LABS: Mucous, Urine 0 SEEN /hpf (<or=2+); Red Blood Cells-Urine 0 SEEN /hpf (0-5); White Blood Cells 0 SEEN /hpf (0-5)
[2022-07-02 15:35] LABS: Absolute Lymphocyte Count 3.35 X10^3/uL (0.83-4.51); Absolute Neutrophil Count 9.3 X10^3/uL (2.0-7.7); Basophil# 0.12 X10^3/uL; Basophil% 0.9 % (0-1); Eosinophil# 0.14 X10^3/uL; Hematocrit 46.2 % (37-47); Hemoglobin 15.7 g/dL (12.0-15.0); Lymphocyte # 3.35 X10^3/ul (0.83-4.51); Mean Corpuscular Hgb 28.8 pg (27.0-32.0); Mean Corpuscular Volume 84.8 fL (81-99); Mean Platelet Vol. 9.8 fl (6.2-12.0); Monocyte# 0.34 X10^3/uL; Monocyte% 2.5 % (0-10); NRBC Flagged by Analyzer 0 % (0-5); Neutrophil # 9.34 X10^3/uL (2.7-7.7); Neutrophil % 69.7 % (47-70); Platelet Count 362 K/mm3 (150-450); RBC Distribution Width CV 12.8 % (11.6-14.6); RBC Distribution Width SD 38.7 fl (35.1-43.9); Red Blood Count 5.45 M/mm3 (4.2-5.4); White Blood Count 13.4 K/mm3 (4.4-11.0)
[2022-07-02 15:36] LABS: Glucose, Dipstick Normal (Normal); Ketone-Dipstick Negative (Negative); Leukocyte Esterase-Dipstick Negative /ul (Negative); Nitrite-Dipstick Negative (Negative); Occult Blood-Urine Negative /ul (Negative); Protein-Dipstick Negative (Negative); Urine Bilirubin Dipstick Negative (Negative); Urine Urobilinogen Normal (Normal)
[2022-07-02 15:38] LABS: Color, Urine Yellow (Yellow); Urine Clarity Clear (Clear)
[2022-07-02 15:45] LABS: Anion Gap 6 (5-15); BUN 17 mg/dL (7-18); BUN/Creat Ratio 21.5 RATIO (10-20); Calcium,Total 8.8 mg/dL (8.5-10.1); Chloride 100 mmol/L (98-107); Creatinine, Serum 0.79 mg/dL (0.55-1.02); EST Glomerular Filtration Rate 78 mL/min (>60); Est Glom Filt Rate - Afr Amer 95 mL/min (>60); Estimated Creatinine Clearance 69.12 ml/min; Glucose 332 mg/dL (74-106); Potassium 3.9 mmol/L (3.5-5.1); Sodium Level 135 mmol/L (136-145)
[2022-07-02 15:56] LABS: Bacteria RARE /hpf (None Seen); Squamous Epithelial Cells - UA 0-5 SEEN /hpf (5-10)
[2022-07-02] MEDS: Insulin Lispro 100 UNIT/ML INSULN.PEN 6 UNIT SC (16:18)
[2022-07-02 16:20] VITALS: BP 126/78; PULSE 73; RESP 16; O2SAT 96
[2022-07-02 17:35] VITALS: BP 137/88; PULSE 71; RESP 16; O2SAT 98
[2022-07-02 17:41] LABS: Bedside Glucose 306 mg/dL (74-106)
== END 2022-07-02 17:36 | disposition home or self-care (01) ==
PROVIDERS: Emergency Provider Emergency Medicine; PCP Internal Medicine; Visit Provider Emergency Medicine
DX: E11.65 Type 2 diabetes mellitus with hyperglycemia (principal); G47.33 Obstructive sleep apnea (adult) (pediatric); Z79.84 Long term (current) use of oral hypoglycemic drugs
CPT/HCPCS: 74176; 80048; 81001; 82962; 85025; 96360; 99283; J7030; A4216

== ENCOUNTER 2022-08-24 18:05 | Emergency (ER) | payer MEDICARE, MEDICAID, SELFPAY ==
[2022-08-24 18:07] VITALS: BP 184/99; PULSE 87; RESP 20; TEMP 37.2; O2SAT 98; BMI 31.3
[2022-08-24 19:25] VITALS: O2SAT 99
== END 2022-08-24 19:55 | disposition left against medical advice (07) ==
LOC: ED 19:55
PROVIDERS: PCP Internal Medicine
DX: R69 Illness, unspecified (principal); Z53.21 Procedure and treatment not carried out due to patient leaving prior to being seen by health care provider
CPT/HCPCS: 99281

== ENCOUNTER → 2022-10-15 | Outpatient (CLI) | payer MEDICARE, MEDICAID, SELFPAY ==
--- NOTE | 2022-10-15 16:02 | CT_ITS ---
STUDY: LOW DOSE CT LUNG CANCER SCREENING REASON FOR EXAM: Female, 62 years old. One pack per day smoker x40 years RADIATION DOSAGE (If Supplied By Facility): CTDIvol = ( 3.02 ) mGy, DLP = ( 103.82 ) mGycm TECHNIQUE: No contrast was administered. Low dose technique was utilized (average mAS-38 and kVp 120). 1.25 mm axial source images with a slice interval of 1.25-mm were reconstructed in lung windows. 2.5 mm axial source images with a slice interval of 2.5-mm were reconstructed in lung windows. 5.0 mm axial source images with a slice interval of 5.0-mm were reconstructed in soft tissue windows. COMPARISON: 10/29/2021 FINDINGS: Lung windows show the lungs to be mildly hyperexpanded with chronic interstitial changes and nonspecific pleural thickening. No organized infiltrate, effusion, or suspicious noncalcified mass or nodule noted. No significant interval change since the previous study. Limited soft tissue views show normal-appearing thyroid gland. There are no suspicious axillary, mediastinal, or perihilar lymph nodes. No thoracic aortic aneurysm or dissection. There are calcified coronary vessels. Bony structures show degenerative change. Small hiatal hernia with evidence to suspect reflux esophagitis. CT/Low Dose CT Lung Screening IMPRESSION: Lung-RADS category 2 - Continue annual screening with LDCT in 12 months. IMPORTANT NOTES FOR USE: ACR Lung-RADS Version 1.1 Assessment Categories Release Date: 2018 Category: Coded 0-4 bases on nodule(s) with highest degree of suspicion. Negative screen is defined as categories 1 and 2; a positive screen is defined as categories 3 and 4. Category 3 and 4A nodules that are unchanged on interval CT should be coded as category 2, and individuals returned to screening in 12 months. Category 4X: Category 3 or 4 nodules with additional imaging findings that increase the suspicion of lung cancer, such as spiculation, GGN that doubles in size in 1 year, enlarged lymph notes, etc. Category Modifiers: S (significant finding unrelated to lung cancer) Electronically Signed: Johnny Saucedo MD at 17:20 EST ,
== END | disposition home or self-care (01) ==
PROVIDERS: PCP Internal Medicine
DX: F17.210 Nicotine dependence, cigarettes, uncomplicated (principal)
CPT/HCPCS: 71271

== ENCOUNTER 2022-12-29 19:59 | Emergency (ER) | payer MEDICARE, MEDICAID, SELFPAY ==
[2022-12-29] VITALS (7 sets, daily range): BP systolic 132–165; BP diastolic 77–106; PULSE 78–93; RESP 18–26; TEMP 36.2; O2SAT 93–98; BMI 33.7
--- NOTE | 2022-12-29 20:09 | EKG12_ITS ---
Test Reason : Blood Pressure : / mmHG Vent. Rate : 077 BPM Atrial Rate : 077 BPM P-R Int : 158 ms QRS Dur : 074 ms QT Int : 412 ms P-R-T Axes : -10 045 006 degrees QTc Int : 466 ms Normal sinus rhythm Nonspecific ST abnormality Abnormal ECG Confirmed by JONEL SUE, AUSTIN ([id number]), publications editor ANGELINE VELÁSQUEZ ([id number]) on 12/31/2022 11:22:46 AM Referred By: Confirmed By:AUSTIN REMY MD
--- NOTE | 2022-12-29 20:10 | EDS_ITS ---
HPI History of Present Illness Chief Complaint: Shortness of Breath Narrative Narrative: 62-year-old female past medical history of COPD, diabetes, smoker, presents with dyspnea and increasing shortness of breath over the last week. She is having dyspnea on exertion and has chest tightness. On occasion, she has chest pressure. She smokes a pack and a half a day. She denies any fever but has occasional cough with sputum production. She states that at the end of November, last month, she saw urgent care and was told that she may have bronchial pneumonia. She was placed on doxycycline which was ineffective for her. She went to her primary care physician they put her on another antibiotic, but also on prednisone and she states she had a bad reaction. She presents because of the increasing shortness of breath and dyspnea with chest tightness. [facility] Medical History Abdominal pain Anxiety and depression Arthritis COPD (chronic obstructive pulmonary disease) Depression Diarrhea Elevated CPK Fatty liver Hemorrhage of gastrointestinal tract Mixed hyperlipidemia YARY treated with BiPAP Osteoarthritis Postoperative anemia Type 2 diabetes mellitus Home Medications gemfibrozil 600 mg tablet 600 mg PO BID 06/13/14 [History Last Taken 07/19/15 600 MG] trazodone 100 mg tablet 100 mg PO QHS 06/13/14 [History Last Taken 07/19/15 100 MG] alprazolam 0.5 mg tablet 0.5 mg PO QHS ANXIETY 07/30/15 [History Last Taken 2 Weeks Ago ~07/16/15 2 TABS] lisinopril 20 mg tablet 20 mg PO DAILY #30 TABLETS 08/02/15 [Rx Last Taken Unknown] albuterol sulfate 90 mcg/actuation aerosol inhaler (Ventolin HFA) 1 - 2 puff inhalation Q4H PRN PRN Wheezing ##1 08/08/15 [Rx Last Taken Unknown] furosemide 20 mg tablet 20 mg PO DAILY 09/26/15 [History Last Taken Unknown] buspirone 5 mg tablet 7.5 mg PO BID 07/11/18 [History Last Taken Unknown] metformin 500 mg tablet,extended release 24 hr 500 mg PO BID 07/11/18 [History Last Taken Unknown] potassium chloride 10 mEq tablet,extended release(part/cryst) 10 meq PO DAILY 07/11/18 [History Last Taken Unknown] sertraline 100 mg tablet (Zoloft) 200 mg PO QHS 07/11/18 [History Last Taken Unknown] fluticasone furoate 100 mcg-vilanterol 25 mcg/dose inhalation powder 1 ea IH DAILY 07/29/19 [History Last Taken Unknown] ipratropium bromide 0.02 % solution for inhalation 2.5 ml inhalation Q6H PRN shortness of breath or wheezing #75 mL 08/21/21 [Rx Last Taken Unknown] albuterol sulfate 2.5 mg/3 mL (0.083 %) solution for nebulization 2.5 mg inhalation Q4H PRN 11/15/21 [History Last Taken Unknown] atenolol 50 mg tablet 50 mg PO DAILY 11/15/21 [History Last Taken Unknown] cetirizine 10 mg tablet 10 mg PO DAILY PRN 11/15/21 [History Last Taken Unknown] gabapentin 300 mg capsule (Neurontin) 600 mg PO .COMPLEX 11/15/21 [History Last Taken Unknown] ibuprofen 600 mg tablet 600 mg PO BID 11/15/21 [History Last Taken Unknown] ketoconazole 2 % topical cream 1 applic topical DAILY 11/15/21 [History Last Taken Unknown] aspirin 81 mg tablet,delayed release 81 mg PO DAILY #1 TAB 01/04/22 [Rx Last Taken Unknown] fluticasone propionate 50 mcg/actuation nasal spray,suspension (Allergy Relief (fluticasone)) 2 spray intranasal DAILY 01/04/22 [History Last Taken Unknown] vitamin E mixed 400 unit capsule 800 unit PO DAILY 02/16/22 [History Last Taken Unknown] ursodiol 300 mg capsule 300 mg PO BID #60 caps 02/26/22 [Rx Last Taken Unknown] Allergy/AdvReac Type Severity Reaction Status Date / Time hydromorphone [From Dilaudid] Allergy Intermediate Altered Verified 12/29/22 20:14 mental status pseudoephedrine Allergy Intermediate Tachycardia Verified 12/29/22 20:14 acetaminophen [From Vicodin] Allergy Upset Verified 12/29/22 20:14 Stomach fluoxetine [From Prozac] Allergy Chest Verified 12/29/22 20:14 tightness house dust mite Allergy NEEDS Verified 12/29/22 20:14 FOLLOW-UP hydrocodone [From Vicodin] Allergy Upset Verified 12/29/22 20:14 Stomach Penicillins Allergy Hives Verified 12/29/22 20:14 Family History Mother Glaucoma Cervical cancer Asthma Father , at 77 Myocardial infarction Cancer Lung, metastatic to bone CAD (coronary artery disease) History of coronary artery bypass surgery Aortic aneurysm and dissection Sister Colon polyp Thyroid disorder Lung cancer Surgical History H/O vaginal hysterectomy History of appendectomy History of back surgery History of bladder suspension procedure History of lumbar laminectomy History of total right knee replacement Hx of cholecystectomy Hx of tonsillectomy S/P total knee arthroplasty Tubal ligation status Social History Smoking Status: Current every day smoker tobacco type: cigarettes alcohol intake: never substance use type: does not use caffeine: Yes Type: carbonated beverages Number of servings: 2 ROS ROS ED ROS Narrative Constitutional: No fever, no chills. HEENT: No sore throat. No neck pain. No loss of vision. No rhinorrhea. Cardiovascular: No chest pain. No palpitations. Bilateral pedal edema. Respiratory: Positive cough occasional phlegm production, positive dyspnea on exertion and increasing shortness of breath. Abdominal: No abdominal pain. No nausea. No vomiting. Genitourinary: No dysuria. No hematuria. Musculoskeletal: No myalgias. No arthralgias. Neurologic: No headaches. No dizziness. No lightheadedness. Skin: No rash. No change in color. Psychiatric: No depression. No anxiety. EXAM Physical Exam Narrative Exam Narrative: Afebrile. Vital signs noted. HEENT: Normocephalic. Atraumatic. PERRL, EOMI. Neck soft and supple. No point tenderness or step off. Cardiovascular: Regular rate and rhythm. No murmurs, rubs, or gallops appreciated. Respiratory: Positive tachypnea. Occasional expiratory wheezing. Gastrointestinal: Abdomen soft, nontender, with normoactive bowel sounds. No rebound or guarding. Neurological: Awake. Alert. Nonfocal, nonlateralizing. Skin: No rash. Normal color. No pallor. Musculoskeletal: No appreciable pitting pedal edema. Full range of motion extremities. Const Vital Signs: 12/29/22 20:00 12/29/22 20:03 12/29/22 20:15 Temperature 97.2 F L 97.2 F L Temperature Source Temporal Temporal Pulse Rate 90 81 Respiratory Rate 26 H 22 H Respiratory Effort Short of Breath Labored Respiratory Pattern Normal Blood Pressure 165/106 H 165/106 H Blood Pressure Mean 125 125 Pulse Ox 98 97 Oxygen Delivery Method Room Air Room Air Room Air 12/29/22 20:32 12/29/22 21:01 Temperature Temperature Source Pulse Rate 78 79 Respiratory Rate 18 18 Respiratory Effort Respiratory Pattern Normal Blood Pressure 133/77 H Blood Pressure Mean 95 Pulse Ox 97 Oxygen Delivery Method Room Air MDM MDM MDM Narrative Medical decision making narrative: Comprehensive work-up was pursued. EKG obtained and interpreted by myself which demonstrates normal sinus rhythm at 77 bpm without ectopy or acute ST changes. No STEMI. I feel she is having more of a COPD exacerbation with chest tightness. I will obtain CBC to look for anemia as a cause of her shortness of breath and dyspnea on exertion along with a CMP. I will obtain a troponin and 2-hour troponin although she has had shortness of breath for over 6 hours and intermittent chest tightness. I have lower suspicion for coronary artery disease or DVT/pulmonary embolism. Chest x-ray will be obtained to help rule out pneumonia, and additionally she has already been treated with antibiotics in the past few weeks. I reviewed the patient's laboratory work and she has a normal white count of 9.4, hemoglobin normal at 14.2, hematocrit 41.6, platelet count normal at 329. Review of electrolyte panel reveals potassium low at 3.2 which was replaced orally with 40 mill equivalents. AST and ALT are normal. Creatinine normal at 0.58 with a BUN of 10. Initial high-sensitivity troponin is 5. This takes care of any chest pain that she has been having over the last week as no evidence of ischemic damage. I do feel that a second troponin at 2 hours would be more reassuring for the patient. I do feel that this is more COPD exacerbation. Smoking cessation was discussed. While glucose is elevated at 167, she has a normal anion gap of 7. I interpreted her chest x-ray independently and see no evidence of an acute pneumonia where antibiotics would be indicated. Additionally, I reviewed the radiology report which confirms my independent interpretation. At this point in time, she is resting comfortably. She has normal pulse ox. I will sign out the patient to the oncoming physician, Dr. Souza, to check the troponin at the 2-hour ravi. As long as it is not showing an increase in her delta troponin, I do feel that she can be discharged safely home with follow-up to her primary care provider. She may require an albuterol inhaler which she already has, but I will not write her for prednisone because she states that she had a bad reaction. I feel she can be discharged safely home currently pending a negative troponin. Disposition is pending. Patient is in stable condition. History & Record Review Discussion w/independent historian: Patient Additional record(s) reviewed:: Prior outpatient record and Prior ED visit Lab Data Attestation: I reviewed the patient's lab results. Labs: Laboratory Results - last 24 hr 12/29/22 12/29/22 20:20 20:20 WBC 9.4 RBC 4.94 Hgb 14.2 Hct 41.6 MCV 84.2 MCH 28.7 MCHC 34.1 RDW Std Deviation 39.8 RDW Coeff of Rodrigo 13.1 Plt Count 329 MPV 9.1 Immature Gran % (Auto) 0.200 Neut % (Auto) 55.6 Lymph % (Auto) 35.2 Duval % (Auto) 7.0 Eos % (Auto) 1.5 Baso % (Auto) 0.5 Absolute Neuts (auto) 5.2 Absolute Lymphs (auto) 3.31 Nucleated RBC % 0 Sodium 137 Potassium 3.2 L Chloride 105 Carbon Dioxide 25.0 Anion Gap 7 BUN 10 Creatinine 0.58 Estim Creat Clear Calc 94.15 Est GFR (MDRD) Af Amer 136 Est GFR (MDRD) Non-Af 112 BUN/Creatinine Ratio 17.3 Glucose 167 H Calcium 8.6 Total Bilirubin 0.30 AST 35 ALT 39 Alkaline Phosphatase 78 Troponin I High Sens 5 Total Protein 7.5 Albumin 3.7 Globulin 3.8 Albumin/Globulin Ratio 1.0 Radiography Diagnostic Testing: Clinical Impression(s) from Imaging Studies Chest X-Ray 12/29/22 20:16 IMPRESSION: No acute cardiopulmonary disease or major interval change. Electronically Signed: Drew Stephens DO at 21:01 EDT Reading Location ID and State: [address] [place] [address] Tel [phone], Service support , Discharge Plan Triage Chief Complaint: Shortness of Breath ED Provider: Reodica,Booker Dx/Rx/DC Orders Clinical Impression: Chest pain, COPD (chronic obstructive pulmonary disease), Shortness of breath, Hypokalemia Instructions: ED COPD Flare, ED Chest Pain, Uncertain Cause, ED Hypokalemia Prescriptions: No Action fluticasone propionate [Allergy Relief (fluticasone)] 50 mcg/actuation spray,suspension 2 spray intranasal DAILY Rx Instructions: administer into each nostril aspirin 81 mg tablet,delayed release (DR/EC) 81 mg PO DAILY Qty: 1 0RF albuterol sulfate 2.5 mg /3 mL (0.083 %) solution for nebulization 2.5 mg inhalation Q4H PRN ketoconazole 2 % cream 1 applic topical DAILY ibuprofen 600 mg tablet 600 mg PO BID cetirizine 10 mg tablet 10 mg PO DAILY PRN atenolol 50 mg tablet 50 mg PO DAILY vitamin E mixed 400 unit capsule 800 unit PO DAILY trazodone 100 MG tablet 100 mg PO QHS Label Comments: Mood/anti-anxiety gemfibrozil 600 MG tablet 600 mg PO BID Label Comments: Cholesterol alprazolam 0.5 MG tablet 0.5 mg PO QHS Label Comments: anti-anxiety TAKES 2 TABS OF 0.5MG @ HS lisinopril 20 MG tablet 20 mg PO DAILY Qty: 30 0RF albuterol sulfate [Ventolin HFA] 1 INHALER inhaler 1 - 2 puff inhalation Q4H PRN PRN (Reason: Wheezing) Qty: 1 0RF furosemide 20 MG tablet 20 mg PO DAILY Label Comments: buspirone 5 MG tablet 7.5 mg PO BID Label Comments: anti-anxiety sertraline [Zoloft] 100 MG tablet 200 mg PO QHS metformin 500 MG tablet 500 mg PO BID potassium chloride 10 MEQ tablet 10 meq PO DAILY gabapentin [Neurontin] 300 mg capsule 600 mg PO .COMPLEX Rx Instructions: 600 mg PO take 2 caps in the am and 3 caps in the evening; fluticasone furoate-vilanterol 1 EACH blister with device 1 ea IH DAILY ipratropium bromide 0.02 % solution 2.5 ml inhalation Q6H PRN (Reason: shortness of breath or wheezing) Qty: 75 2RF ursodiol 300 mg capsule 300 mg PO BID Qty: 60 11RF Primary Care Provider: Susanna Monroe Referrals: Susanna Monroe MD [Primary Care Provider] - 3-5 Days if not improving
--- NOTE | 2022-12-29 20:16 | RAD_ITS ---
STUDY: X-RAY CHEST REASON FOR EXAM: Female, 62 years old. Shortness of breath. Chest heaviness for several days. TECHNIQUE: Single AP portable view of the chest. COMPARISON: August 21, 2021 FINDINGS: The lungs are clear and expanded. There is no demonstrated pleural abnormality. Normal size heart. Normal mediastinum and norah. Normal visualized pulmonary arteries. Normal visualized aortic arch and descending thoracic aorta. Normal visualized thoracic spine. Normal visualized ribs, clavicles, and shoulders. There is no demonstrated abnormality of the visualized soft tissue structures of the upper abdomen. RAD/Chest 1 View (Portable) IMPRESSION: No acute cardiopulmonary disease or major interval change. Electronically Signed: Drew Stephens DO at 21:01 EDT ,
[2022-12-29 20:25] LABS: Absolute Lymphocyte Count 3.31 X10^3/uL (0.83-4.51); Absolute Neutrophil Count 5.2 X10^3/uL (2.0-7.7); Basophil# 0.05 X10^3/uL; Basophil% 0.5 % (0-1); Eosinophil# 0.14 X10^3/uL; Eosinophils% 1.5 % (0-5); Hematocrit 41.6 % (37-47); Hemoglobin 14.2 g/dL (12.0-15.0); Lymphocyte # 3.31 X10^3/ul (0.83-4.51); Lymphocyte % 35.2 % (19-41); Mean Corp Hgb Conc 34.1 g/dL (32-36); Mean Corpuscular Hgb 28.7 pg (27.0-32.0); Mean Corpuscular Volume 84.2 fL (81-99); Mean Platelet Vol. 9.1 fl (6.2-12.0); Monocyte# 0.66 X10^3/uL; NRBC Flagged by Analyzer 0 % (0-5); Neutrophil # 5.22 X10^3/uL (2.7-7.7); Neutrophil % 55.6 % (47-70); Platelet Count 329 K/mm3 (150-450); RBC Distribution Width CV 13.1 % (11.6-14.6); RBC Distribution Width SD 39.8 fl (35.1-43.9); Red Blood Count 4.94 M/mm3 (4.2-5.4); White Blood Count 9.4 K/mm3 (4.4-11.0)
[2022-12-29] MEDS: Ipratropium/Albuterol Sulfate 3 ML AMPUL.NEB INHALATION (20:30)
[2022-12-29 20:44] LABS: AST(SGOT) 35 U/L (15-37); Alanine Aminotransfer ALT/SGPT 39 U/L (13-56); Albumin, Serum 3.7 g/dL (3.2-5.0); Alkaline Phosphatase 78 U/L (45-117); Anion Gap 7 (5-15); BUN 10 mg/dL (7-18); BUN/Creat Ratio 17.3 RATIO (10-20); Calcium,Total 8.6 mg/dL (8.5-10.1); Chloride 105 mmol/L (98-107); Creatinine, Serum 0.58 mg/dL (0.55-1.02); EST Glomerular Filtration Rate 112 mL/min (>60); Est Glom Filt Rate - Afr Amer 136 mL/min (>60); Estimated Creatinine Clearance 94.15 ml/min; Globulin 3.8 g/dL (2.2-4.2); Glucose 167 mg/dL (74-106); Potassium 3.2 mmol/L (3.5-5.1); Protein, Total 7.5 g/dL (6.4-8.2); Sodium Level 137 mmol/L (136-145); Troponin-I HS (w/2H Reflex) 5 pg/mL (3.0-54.0)
[2022-12-29] MEDS: Potassium Chloride Oral Tablet 20 MEQ 40 MEQ PO (21:03)
[2022-12-29 22:23] LABS: Reflex Troponin-HS? (from REC) Y
[2022-12-29 23:02] LABS: Troponin-I HS 5 pg/mL (3.0-54.0)
== END 2022-12-29 23:12 | disposition home or self-care (01) ==
PROVIDERS: Emergency Provider Emergency Medicine; PCP Internal Medicine; Visit Provider Emergency Medicine
DX: R07.9 Chest pain, unspecified (principal); J44.9 Chronic obstructive pulmonary disease, unspecified; R06.02 Shortness of breath; E87.6 Hypokalemia; K76.0 Fatty (change of) liver, not elsewhere classified; G47.33 Obstructive sleep apnea (adult) (pediatric); F17.210 Nicotine dependence, cigarettes, uncomplicated
CPT/HCPCS: 71045; 80053; 84484; 85025; 93005; 94640; 99285; A4216

== ENCOUNTER → 2023-01-04 | Outpatient (CLI) | payer MEDICARE, MEDICAID, SELFPAY ==
[2023-01-04 16:59] LABS: Erythrocyte Sedimentation Rate 9 mm/hr (0-30)
[2023-01-04 17:05] LABS: CRP 3.34 mg/L (0.0-3.0); Lipase 130 U/L (13-75)
[2023-01-07 17:07] LABS: IgG, Quant 720 mg/dL (586-1602); Immunoglobulin G, Subclass 1 338 mg/dL (248-810); Immunoglobulin G, Subclass 2 273 mg/dL (130-555); Immunoglobulin G, Subclass 3 32 mg/dL (15-102); Immunoglobulin G, Subclass 4 44 mg/dL (2-96)
== END | disposition home or self-care (01) ==
LOC: LAB 16:10
PROVIDERS: PCP Internal Medicine; Visit Provider Nurse Practitioner Adult Health
DX: R10.9 Unspecified abdominal pain (principal); R19.7 Diarrhea, unspecified
CPT/HCPCS: 36415; 82784; 82787; 83690; 85652; 86140

== ENCOUNTER → 2023-01-07 | Outpatient (CLI) | payer MEDICARE, MEDICAID, SELFPAY ==
[2023-01-14 03:06] LABS: Calprotectin, Stool <16 ug/g (0-120)
== END | disposition home or self-care (01) ==
LOC: LABSPEC 19:20
PROVIDERS: PCP Internal Medicine; Visit Provider Nurse Practitioner Adult Health
DX: R19.7 Diarrhea, unspecified (principal); R10.9 Unspecified abdominal pain; K58.9 Irritable bowel syndrome, unspecified
CPT/HCPCS: 82653; 83630; 83993; 87493; 87506

== ENCOUNTER → 2023-01-15 | Outpatient (CLI) | payer MEDICARE, MEDICAID, SELFPAY ==
--- NOTE | 2023-01-15 18:56 | CT_ITS ---
STUDY: CT ABDOMEN AND PELVIS WITH AND WITHOUT CONTRAST REASON FOR EXAM: Female, 62 years old. Upper abd pain, diarrhea, elevated lipase, EPI -- pancreas protocol, oral IV if ok for panc protocol RADIATION DOSAGE (If Supplied By Facility): CTDIvol = ( 24.66 ) mGy, DLP = ( 2160.04 ) mGycm TECHNIQUE: Transaxial images were obtained from the dome of the diaphragm to the symphysis pubis with oral contrast. IV 100mL [id number]-300 was administered. Sagittal and coronal images were reconstructed. Individualized dose optimization techniques were used for this CT. COMPARISON: Comparison is made with prior study dated July 02, 2022. FINDINGS: The visualized lung bases are unremarkable. Coronary artery calcification. There is decreased attenuation of the liver consistent with steatosis. The patient is status post cholecystectomy. Normal spleen. Normal pancreas. Normal bilateral adrenal glands. Normal right kidney. Normal left kidney. There is a small hiatal hernia. Normal small intestine. There are multiple colonic diverticula consistent with diverticulosis. The patient is status post cholecystectomy. There is scattered atherosclerotic calcification of the abdominal aorta, without a demonstrated aneurysm. Normal inferior vena cava. Normal retroperitoneum. Normal urinary bladder. There is absence of the uterus consistent with a prior hysterectomy. Normal abdominal wall. There are mild degenerative changes of the visualized lumbar spine. CT/CT Abd/Pelvis W/WO Contrast IMPRESSION: Fatty infiltration of the liver. Status post cholecystectomy. Sigmoid diverticula without evidence of diverticulitis. Small hiatal hernia. Electronically Signed: Fili Sagastume MD at 14:20 EDT ,
== END | disposition home or self-care (01) ==
LOC: CT 18:53
PROVIDERS: PCP Internal Medicine; Referring Provider Nurse Practitioner Adult Health; Visit Provider Nurse Practitioner Adult Health
DX: K85.90 Acute pancreatitis without necrosis or infection, unspecified (principal)
CPT/HCPCS: 74178; Q9967

== ENCOUNTER → 2023-01-30 | Outpatient (CLI) | payer MEDICARE, MEDICAID, SELFPAY ==
[2023-01-30 17:17] LABS: CRP, High Sensitivity Cardiac 4.76 mg/L
[2023-02-01 04:07] LABS: Carbohydrate AG 19-9 44 U/mL (0-35)
== END | disposition home or self-care (01) ==
LOC: LAB 16:22
PROVIDERS: PCP Internal Medicine; Referring Provider Nurse Practitioner Adult Health; Visit Provider Nurse Practitioner Adult Health
DX: R79.82 Elevated C-reactive protein (CRP) (principal); R74.8 Abnormal levels of other serum enzymes; K86.81 Exocrine pancreatic insufficiency; R10.9 Unspecified abdominal pain; R19.7 Diarrhea, unspecified; E78.2 Mixed hyperlipidemia
CPT/HCPCS: 36415; 86141; 86301

== ENCOUNTER → 2023-02-12 | Outpatient (CLI) | payer MEDICARE, MEDICAID, SELFPAY ==
--- NOTE | 2023-02-12 15:58 | MRI_ITS ---
EXAM: MR ABDOMEN WITHOUT INTRAVENOUS CONTRAST, MRCP PROTOCOL CLINICAL INDICATION: epigastric pain, EPI, elevated lipase -- no answer from US or CT TECHNIQUE: Multiplanar and multisequence MR images of the abdomen without intravenous contrast obtained with MRCP sequence. Three-dimensional post-processing reconstructions were performed. COMPARISON: CT January 15, 2023. Cholecystectomy, mildly prominent common duct. FINDINGS: LOWER THORAX: Unremarkable. No pleural effusion. LIVER: Hepatomegaly, the right lobe is 21.3 cm craniocaudal. GALLBLADDER AND BILE DUCTS: Cholecystectomy. The proximal to mid common duct is roughly 9 mm, tapering to roughly 5 mm distally. Within normal limits considering the patient''s age and cholecystectomy. No significant intrahepatic duct dilatation. PANCREATIC DUCTS: 3 mm pancreatic duct tapering distally. OTHER: Spleen, adrenals, kidneys are without suspicious findings. Normal aortic caliber. MRI/MRCP Abdomen without Contrast IMPRESSION: No significant biliary ductal or pancreatic dilatation or filling defect. Electronically Signed: Alyssa Harris MD at 8:49 EDT ,
== END | disposition home or self-care (01) ==
LOC: MRI 15:54
PROVIDERS: PCP Internal Medicine; Referring Provider Nurse Practitioner Adult Health; Visit Provider Nurse Practitioner Adult Health
DX: R10.13 Epigastric pain (principal); K85.90 Acute pancreatitis without necrosis or infection, unspecified; K86.81 Exocrine pancreatic insufficiency; R74.8 Abnormal levels of other serum enzymes
CPT/HCPCS: 74181

== ENCOUNTER → 2023-03-25 | Outpatient (CLI) | payer MEDICARE, MEDICAID, SELFPAY ==
--- NOTE | 2023-03-25 15:05 | RAD_ITS ---
INDICATION: Sitz marker study EXAMINATION/TECHNIQUE: X-RAY - XR Abdomen 1 View COMPARISON: MRCP February 12, 2023; CT abdomen and pelvis January 15, 2023 FINDINGS: BOWEL GAS PATTERN: Non-obstructive. No bowel or stomach distention. No Sitz markers are identified. FREE AIR: Not assessed on a single supine view. ORGANOMEGALY: The liver is enlarged, the inferior right lobe extending just below the right iliac crest. CALCIFICATIONS: No abnormal calcifications observed. LOWER CHEST: No acute pathology. BONES AND SOFT TISSUES: Surgical clips of prior appendectomy noted in the right lower quadrant. Additional metal clips of prior bilateral tubal occlusions seen in the pelvic soft tissues. An ovoid radiopaque density projecting the medial left flank on one image may be a swallowed tablet in the stomach. There are stable multilevel degenerative changes of the thoracolumbar spine. RAD/Abdomen Single View IMPRESSION: 1. Non-obstructive bowel gas pattern. No Sitz markers are seen. 2. Prior appendectomy and prior bilateral tubal occlusions. 3. Hepatomegaly. Electronically Signed: Johnny Kidd MD at 16:29 EDT Reading Location ID and State: [id number] / Unknown , Service support ,
== END | disposition home or self-care (01) ==
LOC: RAD 14:49
PROVIDERS: PCP Internal Medicine; Referring Provider Internal Medicine Gastroenterology; Visit Provider Internal Medicine Gastroenterology
DX: K59.00 Constipation, unspecified (principal)
CPT/HCPCS: 74018

== ENCOUNTER → 2023-04-01 | Outpatient (CLI) | payer MEDICARE, MEDICAID, SELFPAY ==
[2023-04-01 16:49] LABS: Erythrocyte Sedimentation Rate 8 mm/hr (0-30)
[2023-04-01 17:23] LABS: CRP < 2.90 mg/L (0.0-3.0)
[2023-04-03 04:12] LABS: Carbohydrate AG 19-9 41 U/mL (0-35)
== END | disposition home or self-care (01) ==
LOC: LAB 15:26
PROVIDERS: PCP Internal Medicine; Referring Provider Internal Medicine Gastroenterology; Visit Provider Internal Medicine Gastroenterology
DX: K86.81 Exocrine pancreatic insufficiency (principal); K76.0 Fatty (change of) liver, not elsewhere classified
CPT/HCPCS: 36415; 85652; 86140; 86301

== ENCOUNTER → 2023-04-09 | Outpatient (CLI) | payer MEDICARE, MEDICAID, SELFPAY ==
--- NOTE | 2023-04-09 09:50 | US_ITS ---
STUDY: ABDOMINAL ULTRASOUND - RIGHT UPPER QUADRANT; ELASTOGRAPHY REASON FOR VISIT: Female, 62 years old. Fatty infiltration of the liver. TECHNIQUE: Ultrasound evaluation of the right upper quadrant was performed with real-time and static lema-scale imaging. Point quantification shear wave elastography was performed ([place]). TECHNICAL QUALITY: Adequate. COMPARISON: Comparison is made with prior examination dated June 01, 2022. FINDINGS: Liver: The liver is enlarged and measures 21.3 cm. There is increased echogenicity consistent with fatty infiltration. The bile ducts are within normal limits. There is hepatic color flow. The direction of portal flow is hepatopetal. There is no demonstrated mass lesion. Median liver stiffness measured 7.4 kPa. Gallbladder: The patient is status post cholecystectomy. Common Bile Duct (C.B.D.): The common bile duct measures 8 mm. Pancreas: There is normal echogenicity of the visualized pancreas. There is no demonstrated pancreatic mass or cyst. Right Kidney: Normal size of the right kidney. The right kidney measures 14 cm x 6.8 cm x 4.4 cm. Normal renal cortex. The right cortex measures 2.1 cm. There is no demonstrated renal mass or cyst. There is no right hydronephrosis. US/ABD Limited w/ Elastography IMPRESSION: 1. Liver stiffness measures 7.4 kPa compatible with F2-F3 (Mild to moderate liver fibrosis) Metavir score. Electronically Signed: Fili Sagastume MD at 15:24 EDT ,
== END | disposition home or self-care (01) ==
LOC: US 09:47
PROVIDERS: PCP Internal Medicine; Referring Provider Internal Medicine Gastroenterology; Visit Provider Internal Medicine Gastroenterology
DX: E11.9 Type 2 diabetes mellitus without complications (principal); K76.0 Fatty (change of) liver, not elsewhere classified
CPT/HCPCS: 76705; 76981

== ENCOUNTER 2023-05-26 21:37 | Emergency (ER) | payer MEDICARE, MEDICAID, SELFPAY ==
[2023-05-26 21:39] VITALS: BP 130/96; PULSE 93; RESP 26; TEMP 37.2; O2SAT 95; BMI 32.8
[2023-05-26 21:43] VITALS: BP 130/96; PULSE 93; RESP 26; TEMP 37.2; O2SAT 95
[2023-05-26] MEDS: Phenazopyridine 95 MG Tablet 190 MG PO (22:36)
[2023-05-26] MEDS: MethylPREDNISolone 125 MG/2 ML Vial IV (22:37)
[2023-05-26 22:38] LABS: Bacteria 0 SEEN /hpf (None Seen); Color, Urine Yellow (Yellow); Glucose, Dipstick Normal (Normal); Ketone-Dipstick Negative (Negative); Leukocyte Esterase-Dipstick 25 /ul (Negative); Mucous, Urine 0 SEEN /hpf (<or=2+); Nitrite-Dipstick Negative (Negative); Occult Blood-Urine 25 /ul (Negative); Protein-Dipstick 30 mg/dl (Negative); Red Blood Cells-Urine 0 SEEN /hpf (0-5); Specific Gravity, Urine 1.015 (1.002-1.030); Urine Bilirubin Dipstick Negative (Negative); Urine Clarity Clear (Clear); Urine Urobilinogen Normal (Normal); White Blood Cells 0 SEEN /hpf (0-5)
[2023-05-26] MEDS: DiphenhydrAMINE 50 MG/ML Syringe IV (22:38)
[2023-05-26] MEDS: Famotidine 200 MG/20 ML MDV 20 MG in 0.9% Normal Saline (Pres. free 8 ML 300 MG IV ×2 (22:42→22:44)
[2023-05-26 22:44] LABS: Absolute Neutrophil Count 6.2 X10^3/uL (2.0-7.7); Basophil# 0.08 X10^3/uL; Basophil% 0.7 % (0-1); Eosinophil# 0.72 X10^3/uL; Eosinophils% 6.6 % (0-5); Hematocrit 41.4 % (37-47); Hemoglobin 13.8 g/dL (12.0-15.0); Lymphocyte % 29.2 % (19-41); Mean Corp Hgb Conc 33.3 g/dL (32-36); Mean Corpuscular Hgb 28.7 pg (27.0-32.0); Mean Corpuscular Volume 86.1 fL (81-99); Mean Platelet Vol. 9.7 fl (6.2-12.0); Monocyte# 0.66 X10^3/uL; NRBC Flagged by Analyzer 0 % (0-5); Neutrophil # 6.23 X10^3/uL (2.7-7.7); Neutrophil % 56.9 % (47-70); Platelet Count 313 K/mm3 (150-450); RBC Distribution Width CV 13.1 % (11.6-14.6); RBC Distribution Width SD 40.7 fl (35.1-43.9); Red Blood Count 4.81 M/mm3 (4.2-5.4)
[2023-05-26 22:48] LABS: Squamous Epithelial Cells - UA 0-5 SEEN /hpf (5-10)
[2023-05-26 22:49] LABS: Calcium Oxalate Crystals Ur 2+ /hpf (<or=2+)
[2023-05-26 23:17] LABS: Anion Gap 6 (5-15); BUN 10 mg/dL (7-18); BUN/Creat Ratio 16.8 RATIO (10-20); Chloride 106 mmol/L (98-107); EST Glomerular Filtration Rate 108 mL/min (>60); Est Glom Filt Rate - Afr Amer 131 mL/min (>60); Estimated Creatinine Clearance 91.01 ml/min; Glucose 193 mg/dL (74-106); Potassium 3.3 mmol/L (3.5-5.1); Sodium Level 137 mmol/L (136-145)
--- NOTE | 2023-05-26 23:24 | CT_ITS ---
EXAM: CT ABDOMEN AND PELVIS WITHOUT INTRAVENOUS CONTRAST CLINICAL INDICATION: abd pain / ? kidney stone TECHNIQUE: Helically acquired images were obtained of the abdomen and pelvis without intravenous contrast. This CT exam was performed using one or more of the following dose reduction techniques: automated exposure control, adjustment of the mA and/or kV according to patient size, and/or use of iterative reconstruction technique. RADIATION DOSE: CTDIvol = 14.92 mGy, DLP = 1020.93 mGy-cm COMPARISON: CT abdomen and pelvis 01/15/2023 FINDINGS: LOWER THORAX: Tiny pleural effusions and mild interstitial edema in the lung bases. No cardiomegaly. ABDOMEN: LIVER: Hepatomegaly. GALLBLADDER AND BILE DUCTS: Cholecystectomy. No intra- or extrahepatic biliary ductal dilation. PANCREAS: Unremarkable. No focal cystic mass. SPLEEN: Unremarkable. Normal size without focal cystic or solid mass. ADRENALS: Unremarkable. No nodules. KIDNEYS AND URETERS: Unremarkable. Normal renal size and position. No urinary stone or renal obstruction. STOMACH AND BOWEL: Unremarkable. No stomach or bowel distention. No focal inflammatory change. PELVIS: APPENDIX: Appendectomy changes. BLADDER: Bladder wall thickening with some adjacent inflammation. REPRODUCTIVE: Unremarkable as visualized. No mass. ABDOMEN and PELVIS: INTRAPERITONEAL SPACE: Unremarkable. No ascites or other fluid collection. No free air. BONES/JOINTS: Degenerative changes of the spine. No suspicious lytic or blastic abnormality. SOFT TISSUES: Unremarkable. No discrete abdominal or pelvic wall hernia. VASCULATURE: Moderate atherosclerotic changes of the abdominal aorta without aneurysm. LYMPH NODES: Unremarkable. No enlarged lymph nodes. CT/Abdomen/Pelvis without Cont IMPRESSION: 1. Bladder wall thickening with some adjacent inflammation. Findings may indicate cystitis. 2. Tiny pleural effusions and mild interstitial edema in the lung bases. Electronically Signed: Luciano Ryan MD at 0:10 EDT ,
[2023-05-26 23:37] VITALS: BP 167/71; PULSE 80; RESP 89; O2SAT 94
--- NOTE | 2023-05-27 00:38 | EX.ED.DYSGE1 ---
HPI History of Present Illness Chief Complaint: Complaint Informant: patient Narrative Narrative: Patient is a 62-year-old female with past medical history of COPD and diabetes. She states that she had painful urination and was seen as an outpatient and placed on Macrobid. She states she took that for 5 days and completed the course of antibiotics but still had symptoms of dysuria so she was placed on Omnicef. She states she has been on that for 2 days and has not had any symptom improvement but now notes a rash. She states there is no new exposures other than the Omnicef. She denies any difficulty breathing or swallowing but with persistent dysuria she comes in for evaluation [facility] Medical History Abdominal pain Anxiety and depression Arthritis COPD (chronic obstructive pulmonary disease) Depression Diarrhea Elevated CPK Fatty liver Hemorrhage of gastrointestinal tract Mixed hyperlipidemia YARY treated with BiPAP Osteoarthritis Postoperative anemia Type 2 diabetes mellitus Home Medications gemfibrozil 600 mg tablet 600 mg PO BID 06/13/14 [History Last Taken 07/19/15 600 MG] trazodone 100 mg tablet 100 mg PO QHS 06/13/14 [History Last Taken 07/19/15 100 MG] alprazolam 0.5 mg tablet 0.5 mg PO QHS ANXIETY 07/30/15 [History Last Taken 2 Weeks Ago ~07/16/15 2 TABS] lisinopril 20 mg tablet 20 mg PO DAILY #30 TABLETS 08/02/15 [Rx Last Taken Unknown] albuterol sulfate 90 mcg/actuation aerosol inhaler (Ventolin HFA) 1 - 2 puff inhalation Q4H PRN PRN Wheezing ##1 08/08/15 [Rx Last Taken Unknown] furosemide 20 mg tablet 20 mg PO DAILY 09/26/15 [History Last Taken Unknown] buspirone 5 mg tablet 7.5 mg PO BID 07/11/18 [History Last Taken Unknown] metformin 500 mg tablet,extended release 24 hr 500 mg PO BID 07/11/18 [History Last Taken Unknown] potassium chloride 10 mEq tablet,extended release(part/cryst) 10 meq PO DAILY 07/11/18 [History Last Taken Unknown] sertraline 100 mg tablet (Zoloft) 200 mg PO QHS 07/11/18 [History Last Taken Unknown] fluticasone furoate 100 mcg-vilanterol 25 mcg/dose inhalation powder 1 ea IH DAILY 07/29/19 [History Last Taken Unknown] ipratropium bromide 0.02 % solution for inhalation 2.5 ml inhalation Q6H PRN shortness of breath or wheezing #75 mL 08/21/21 [Rx Last Taken Unknown] albuterol sulfate 2.5 mg/3 mL (0.083 %) solution for nebulization 2.5 mg inhalation Q4H PRN shortness of breath 11/15/21 [History Last Taken Unknown] atenolol 50 mg tablet 50 mg PO DAILY 11/15/21 [History Last Taken Unknown] cetirizine 10 mg tablet 10 mg PO DAILY PRN 11/15/21 [History Last Taken Unknown] gabapentin 300 mg capsule (Neurontin) 600 mg PO .COMPLEX 11/15/21 [History Last Taken Unknown] ibuprofen 600 mg tablet 600 mg PO BID 11/15/21 [History Last Taken Unknown] ketoconazole 2 % topical cream 1 applic topical DAILY 11/15/21 [History Last Taken Unknown] fluticasone propionate 50 mcg/actuation nasal spray,suspension (Allergy Relief (fluticasone)) 2 spray intranasal DAILY 01/04/22 [History Last Taken Unknown] glimepiride 4 mg tablet 4 mg PO DAILY PRN glucose >200 01/04/23 [History Last Taken Unknown] [id number]-ixpydru 24,000-76,000-120,000 unit capsule,delayed rel (Creon) 1 cap PO TID #90 caps 03/21/23 [Rx Last Taken Unknown] ursodiol 300 mg capsule 300 mg PO BID #60 caps 03/26/23 [Rx Last Taken Unknown] vitamin E mixed 400 unit capsule 800 unit (2 x 400 unit) PO DAILY #60 caps 03/26/23 [Rx Last Taken Unknown] pantoprazole 40 mg tablet,delayed release (Protonix) 40 mg PO BID #60 tabs 04/09/23 [Rx Last Taken Unknown] sucralfate 1 gram tablet 1 g PO QAC #90 tabs 04/09/23 [Rx Last Taken Unknown] cefdinir 300 mg capsule 300 mg PO Q12H 05/26/23 [History Last Taken Unknown] cholecalciferol (vitamin D3) 10 mcg (400 unit) capsule 10 mcg PO DAILY 05/26/23 [History Last Taken Unknown] Allergy/AdvReac Type Severity Reaction Status Date / Time Cephalosporins Allergy Intermediate Rash Verified 05/26/23 22:18 hydromorphone [From Dilaudid] Allergy Intermediate Altered Verified 05/26/23 21:38 mental status pseudoephedrine Allergy Intermediate Tachycardia Verified 05/26/23 21:38 fluoxetine [From Prozac] Allergy Chest Verified 05/26/23 21:38 tightness house dust mite Allergy NEEDS Verified 05/26/23 21:38 FOLLOW-UP hydrocodone [From Vicodin] Allergy Upset Verified 05/26/23 21:38 Stomach Penicillins Allergy Hives Verified 05/26/23 21:38 Family History Mother Glaucoma Cervical cancer Asthma Father , at 77 Myocardial infarction Cancer Lung, metastatic to bone CAD (coronary artery disease) History of coronary artery bypass surgery Aortic aneurysm and dissection Sister Colon polyp Thyroid disorder Lung cancer Surgical History H/O vaginal hysterectomy History of appendectomy History of back surgery History of bladder suspension procedure History of lumbar laminectomy History of total right knee replacement Hx of cholecystectomy Hx of tonsillectomy S/P total knee arthroplasty Tubal ligation status Social History Smoking Status: Current every day smoker tobacco type: cigarettes alcohol intake: never substance use type: does not use caffeine: Yes Type: carbonated beverages Number of servings: 2 ROS ROS ED Constitutional Constitutional ED: Denies chills or fever(s) ENT ENT ED: Denies sore throat Cardiovascular Cardiovascular: Denies chest pain Respiratory/Chest Respiratory/Chest: Denies cough or dyspnea Gastrointestinal Gastrointestinal: Reports abdominal pain; Denies diarrhea, nausea or vomiting Genitourinary Genitourinary ED: Reports dysuria; Denies hematuria or urinary frequency Musculoskeletal Musculoskeletal: Denies back pain or myalgias Integumentary Reports rash Neurologic Neurologic: Denies headache(s) Hematologic/Lymphatic Hematologic/Lymphatic: Denies easy bleeding or easy bruising EXAM Physical Exam Const Vital Signs: 05/26/23 21:39 05/26/23 21:43 05/26/23 23:37 Temperature 99.0 F 99.0 F Temperature Source Oral Oral Pulse Rate 93 93 80 Respiratory Rate 26 H 26 H 89 H Blood Pressure 130/96 H 130/96 H 167/71 H Blood Pressure Mean 107 107 103 Pulse Ox 95 95 94 Oxygen Delivery Method Room Air Room Air Room Air Positive well nourished, well developed and obese General Appearance ED: well developed Nutritional Appearance: obese HEENT Reports moist mucous membranes HEENT Narrative: No tongue or lip swelling no oral lesions no airway edema or compromise. Eyes PERRL and EOMs intact bilaterally General Eye ED: Negative for scleral icterus Neck supple Neck Narrative: No nuchal rigidity or meningeal signs Resp normal respiratory effort and clear to auscultation bilaterally Cardio regular rate and regular rhythm Rate: other Other Details: Radial and carotid pulses are equal and symmetric GI non-distended GI Narrative: Abdomen is soft nondistended with normal active bowel sounds. There is mild pain with palpation in the suprapubic region without voluntary guarding or rigidity. No pulsatile mass or fluid wave. Auscultation: normoactive bowel sounds Palpation: soft Narrative: External genitalia appears normal without soft tissue lesion or mass. No discharge is noted from the vaginal os. There is a soft tissue rash as documented below present in the inguinal region but no signs of Nataliya's gangrene or crepitance palpated. Back/Spine no CVA tenderness Extremity normal to inspection Neuro oriented x3 and CN's II-XII intact bilaterally Sensorium / Orientation: alert Motor Exam: strength 5/5 throughout Psych mental status grossly normal Skin Skin Narrative: Patient has a erythematous blanchable hive-like rash located along the left back and left lower abdomen which tracks down into the inguinal region and crosses over to the right side. There are also small areas of developing rash noted on the dorsal aspects of bilateral feet as well as the dorsal aspect of her hands and arms. There is no involvement of the palms or soles. No vesicular or pustule lesions. MDM MDM MDM Narrative Medical decision making narrative: Patient presented to the ER afebrile with a soft nonsurgical abdomen. She reported dysuria but states it was mainly pain after urination not during. Differential diagnosis is for persistent urinary tract infection versus pyelonephritis versus kidney stone versus allergic reaction versus shingles. As patient states she has had 5 days of Macrobid now 2 days of Omnicef with no real improvement there is concern that she can progress into urosepsis or pyelonephritis so basic blood work was obtained with repeat urine sample. Labs showed no leukocytosis or acute kidney injury or electrolyte derangement. Urine sample showed no bacteria. It did document calcium oxalate stones however which potentially could be a cause of her symptoms if she has developed a kidney stone which is now causing irritation in the ureter or urethra. Secondary to this I did like to perform a CT scan of the abdomen pelvis without IV contrast. This showed mild thickening of the bladder wall with surrounding inflammatory changes. This could explain her symptoms of dysuria but as the UA reveals no bacteria I do not feel there is need for repeat antibiotics. The patient does have a systemic rash consistent with acute allergic reaction most likely to Omnicef. She will be advised to list as an allergy from now on but as she does not have signs of respiratory distress there is no need for further evaluation. Patient will be discharged and advised to see urology as an outpatient to further delineate the cause of her symptoms. History & Record Review Discussion w/independent historian: Patient Lab Data Attestation: I reviewed the patient's lab results. Labs: Laboratory Results - last 24 hr 05/26/23 05/26/23 21:55 22:30 WBC 11.0 RBC 4.81 Hgb 13.8 Hct 41.4 MCV 86.1 MCH 28.7 MCHC 33.3 RDW Std Deviation 40.7 RDW Coeff of Rodrigo 13.1 Plt Count 313 MPV 9.7 Immature Gran % (Auto) 0.600 Neut % (Auto) 56.9 Lymph % (Auto) 29.2 [place] % (Auto) 6.0 Eos % (Auto) 6.6 H Baso % (Auto) 0.7 Absolute Neuts (auto) 6.2 Absolute Lymphs (auto) 3.20 Nucleated RBC % 0 Sodium 137 Potassium 3.3 L Chloride 106 Carbon Dioxide 25.0 Anion Gap 6 BUN 10 Creatinine 0.60 Estim Creat Clear Calc 91.01 Est GFR (MDRD) Af Amer 131 Est GFR (MDRD) Non-Af 108 BUN/Creatinine Ratio 16.8 Glucose 193 H Calcium 9.0 Urine Color Yellow Urine Clarity Clear Urine pH 6.0 Ur Specific [place] 1.015 Urine Protein 30 H Urine Glucose (UA) Normal Urine Ketones Negative Urine Occult Blood 25 H Urine Nitrite Negative Urine Bilirubin Negative Urine Urobilinogen Normal Ur Leukocyte Esterase 25 H Urine RBC 0 SEEN Urine WBC 0 SEEN Ur Squamous Epith Cells 0-5 SEEN Calcium Oxalate Crystal 2+ Urine Bacteria 0 SEEN Urine Mucus 0 SEEN Radiography Diagnostic Testing: Clinical Impression(s) from Imaging Studies Abdomen/Pelvis CT 05/26/23 23:24 IMPRESSION: 1. Bladder wall thickening with some adjacent inflammation. Findings may indicate cystitis. 2. Tiny pleural effusions and mild interstitial edema in the lung bases. Electronically Signed: Luciano Ryan MD at 0:10 EDT , Discharge Plan Triage Chief Complaint: Complaint ED Provider: Diogo Garza Dx/Rx/DC Orders Clinical Impression: Dysuria, Allergic reaction, Type 2 diabetes mellitus Instructions: Dysuria, ED General Allergic Reactions Prescriptions: No Action fluticasone propionate [Allergy Relief (fluticasone)] 50 mcg/actuation spray,suspension 2 spray intranasal DAILY Rx Instructions: administer into each nostril albuterol sulfate 2.5 mg /3 mL (0.083 %) solution for nebulization 2.5 mg inhalation Q4H PRN (Reason: shortness of breath) ketoconazole 2 % cream 1 applic topical DAILY ibuprofen 600 mg tablet 600 mg PO BID cetirizine 10 mg tablet 10 mg PO DAILY PRN atenolol 50 mg tablet 50 mg PO DAILY glimepiride 4 mg tablet 4 mg PO DAILY PRN (Reason: glucose >200) Creon 24,000-76,000 -120,000 unit capsule,delayed release(DR/EC) 1 cap PO TID Qty: 90 0RF Rx Instructions: administer with meals and/or snacks trazodone 100 MG tablet 100 mg PO QHS Patient Comments: Mood/anti-anxiety gemfibrozil 600 MG tablet 600 mg PO BID Patient Comments: Cholesterol alprazolam 0.5 MG tablet 0.5 mg PO QHS Patient Comments: anti-anxiety TAKES 2 TABS OF 0.5MG @ HS lisinopril 20 MG tablet 20 mg PO DAILY Qty: 30 0RF albuterol sulfate [Ventolin HFA] 1 INHALER inhaler 1 - 2 puff inhalation Q4H PRN PRN (Reason: Wheezing) Qty: 1 0RF furosemide 20 MG tablet 20 mg PO DAILY Patient Comments: buspirone 5 MG tablet 7.5 mg PO BID Patient Comments: anti-anxiety sertraline [Zoloft] 100 MG tablet 200 mg PO QHS metformin 500 MG tablet 500 mg PO BID potassium chloride 10 MEQ tablet 10 meq PO DAILY gabapentin [Neurontin] 300 mg capsule 600 mg PO .COMPLEX Rx Instructions: 600 mg PO take 2 caps in the am and 3 caps in the evening; fluticasone furoate-vilanterol 1 EACH blister with device 1 ea IH DAILY ipratropium bromide 0.02 % solution 2.5 ml inhalation Q6H PRN (Reason: shortness of breath or wheezing) Qty: 75 2RF cefdinir 300 mg capsule 300 mg PO Q12H Patient Comments: Take 1 capsule by mouth twice daily for 10 days. cholecalciferol (vitamin D3) 10 mcg (400 unit) capsule 10 mcg PO DAILY ursodiol 300 mg capsule 300 mg PO BID Qty: 60 11RF vitamin E mixed 400 unit capsule 800 unit PO DAILY Qty: 60 11RF pantoprazole [Protonix] 40 mg tablet,delayed release (DR/EC) 40 mg PO BID Qty: 60 2RF sucralfate 1 gram tablet 1 g PO QAC Qty: 90 1RF Primary Care Provider: Susanna Monroe Referrals: Donovan Pinto MD [Med Staff - Active Staff] - Susanna Monroe MD [Primary Care Provider] - Activity Restrictions/Additional Instructions: Please list the drug category cephalosporins as a allergen from now on. Do not take the cefdinir that was prescribed secondary to your allergy. It will take typically 3 to 5 days for the allergic reaction to resolve and you may continue [id number] Benadryl for itch relief if needed. Your urine sample today shows no bacteria to indicate infection but the CT scan does show slight bladder wall thickening with surrounding inflammation which could be the cause of your recurrent pain. Secondary to this follow-up with urology to discuss further testing and treatment options and return to the ER should you have any further concerns Disposition Disposition: Home, Self Care Discharge Date/Time: 05/27/23 00:45
== END 2023-05-27 00:45 | disposition home or self-care (01) ==
PROVIDERS: Emergency Provider Emergency Medicine; PCP Internal Medicine; Visit Provider Emergency Medicine
DX: R30.0 Dysuria (principal); J44.9 Chronic obstructive pulmonary disease, unspecified; E11.9 Type 2 diabetes mellitus without complications; T78.40XA Allergy, unspecified, initial encounter; G47.33 Obstructive sleep apnea (adult) (pediatric); F17.210 Nicotine dependence, cigarettes, uncomplicated; E66.9 Obesity, unspecified; F32.A Depression, unspecified; F41.9 Anxiety disorder, unspecified; Z79.899 Other long term (current) drug therapy; Z79.84 Long term (current) use of oral hypoglycemic drugs; X58.XXXA Exposure to other specified factors, initial encounter
CPT/HCPCS: 74176; 80048; 81001; 85025; 96374; 96375; 99284; A4216; J3490

== ENCOUNTER 2023-05-30 14:17 | Emergency (ER) | payer MEDICARE, MEDICAID, SELFPAY ==
[2023-05-30 14:18] VITALS: BP 137/86; PULSE 76; RESP 14; TEMP 36.6; O2SAT 98; BMI 32.1
--- NOTE | 2023-05-30 16:21 | EX.ED.DYSGE1 ---
HPI History of Present Illness Chief Complaint: Allergic Reaction Informant: patient Onset/Context/Timing Onset: Days (3) Context: Gradual Onset Timing: Continuous Quality: urticaria Location: Generalized Worsened by: Nothing Relieved by: Nothing Narrative Narrative: Patient presents with hives and itching that has been getting worse over the past 3 days. Patient was seen here 5 days ago and was given a dose of IV steroids and antihistamines. Patient states her symptoms improved the next day. Patient states that the following day they came back and have been persistent for the past 3 days. Patient states she has been taking [id number] Benadryl with no improvement. Patient denies any difficulty breathing or difficulty swallowing. Patient denies any fevers or chills. [facility] Medical History Abdominal pain Anxiety and depression Arthritis COPD (chronic obstructive pulmonary disease) Depression Diarrhea Elevated CPK Fatty liver Hemorrhage of gastrointestinal tract Mixed hyperlipidemia YARY treated with BiPAP Osteoarthritis Postoperative anemia Type 2 diabetes mellitus Home Medications gemfibrozil 600 mg tablet 600 mg PO BID 06/13/14 [History Last Taken 07/19/15 600 MG] trazodone 100 mg tablet 100 mg PO QHS 06/13/14 [History Last Taken 07/19/15 100 MG] alprazolam 0.5 mg tablet 0.5 mg PO QHS ANXIETY 07/30/15 [History Last Taken 2 Weeks Ago ~07/16/15 2 TABS] lisinopril 20 mg tablet 20 mg PO DAILY #30 TABLETS 08/02/15 [Rx Last Taken Unknown] albuterol sulfate 90 mcg/actuation aerosol inhaler (Ventolin HFA) 1 - 2 puff inhalation Q4H PRN PRN Wheezing ##1 08/08/15 [Rx Last Taken Unknown] furosemide 20 mg tablet 20 mg PO DAILY 09/26/15 [History Last Taken Unknown] buspirone 5 mg tablet 7.5 mg PO BID 07/11/18 [History Last Taken Unknown] metformin 500 mg tablet,extended release 24 hr 500 mg PO BID 07/11/18 [History Last Taken Unknown] potassium chloride 10 mEq tablet,extended release(part/cryst) 10 meq PO DAILY 07/11/18 [History Last Taken Unknown] sertraline 100 mg tablet (Zoloft) 200 mg PO QHS 07/11/18 [History Last Taken Unknown] fluticasone furoate 100 mcg-vilanterol 25 mcg/dose inhalation powder 1 ea IH DAILY 07/29/19 [History Last Taken Unknown] ipratropium bromide 0.02 % solution for inhalation 2.5 ml inhalation Q6H PRN shortness of breath or wheezing #75 mL 08/21/21 [Rx Last Taken Unknown] albuterol sulfate 2.5 mg/3 mL (0.083 %) solution for nebulization 2.5 mg inhalation Q4H PRN shortness of breath 11/15/21 [History Last Taken Unknown] atenolol 50 mg tablet 50 mg PO DAILY 11/15/21 [History Last Taken Unknown] cetirizine 10 mg tablet 10 mg PO DAILY PRN 11/15/21 [History Last Taken Unknown] gabapentin 300 mg capsule (Neurontin) 600 mg PO .COMPLEX 11/15/21 [History Last Taken Unknown] ibuprofen 600 mg tablet 600 mg PO BID 11/15/21 [History Last Taken Unknown] ketoconazole 2 % topical cream 1 applic topical DAILY 11/15/21 [History Last Taken Unknown] fluticasone propionate 50 mcg/actuation nasal spray,suspension (Allergy Relief (fluticasone)) 2 spray intranasal DAILY 01/04/22 [History Last Taken Unknown] glimepiride 4 mg tablet 4 mg PO DAILY PRN glucose >200 01/04/23 [History Last Taken Unknown] zbtqir-muamvdht-deflahy 24,000-76,000-120,000 unit capsule,delayed rel (Creon) 1 cap PO TID #90 caps 03/21/23 [Rx Last Taken Unknown] ursodiol 300 mg capsule 300 mg PO BID #60 caps 03/26/23 [Rx Last Taken Unknown] vitamin E mixed 400 unit capsule 800 unit (2 x 400 unit) PO DAILY #60 caps 03/26/23 [Rx Last Taken Unknown] pantoprazole 40 mg tablet,delayed release (Protonix) 40 mg PO BID #60 tabs 04/09/23 [Rx Last Taken Unknown] sucralfate 1 gram tablet 1 g PO QAC #90 tabs 04/09/23 [Rx Last Taken Unknown] cefdinir 300 mg capsule 300 mg PO Q12H 05/26/23 [History Last Taken Unknown] cholecalciferol (vitamin D3) 10 mcg (400 unit) capsule 10 mcg PO DAILY 05/26/23 [History Last Taken Unknown] hydroxyzine pamoate 25 mg capsule 25 mg PO TID PRN PRN itching #30 CAPSULES 05/30/23 [Rx Last Taken Unknown] prednisone 20 mg tablet 40 mg (2 x 20 mg) PO DAILY 5 days #10 TABLETS 05/30/23 [Rx Last Taken Unknown] Allergy/AdvReac Type Severity Reaction Status Date / Time Cephalosporins Allergy Intermediate Rash Verified 05/26/23 22:18 hydromorphone [From Dilaudid] Allergy Intermediate Altered Verified 05/26/23 21:38 mental status pseudoephedrine Allergy Intermediate Tachycardia Verified 05/26/23 21:38 fluoxetine [From Prozac] Allergy Chest Verified 05/26/23 21:38 tightness house dust mite Allergy NEEDS Verified 05/26/23 21:38 FOLLOW-UP hydrocodone [From Vicodin] Allergy Upset Verified 05/26/23 21:38 Stomach Penicillins Allergy Hives Verified 05/26/23 21:38 Family History Mother Glaucoma Cervical cancer Asthma Father , at 77 Myocardial infarction Cancer Lung, metastatic to bone CAD (coronary artery disease) History of coronary artery bypass surgery Aortic aneurysm and dissection Sister Colon polyp Thyroid disorder Lung cancer Surgical History H/O vaginal hysterectomy History of appendectomy History of back surgery History of bladder suspension procedure History of lumbar laminectomy History of total right knee replacement Hx of cholecystectomy Hx of tonsillectomy S/P total knee arthroplasty Tubal ligation status Social History Smoking Status: Current every day smoker tobacco type: cigarettes alcohol intake: never substance use type: does not use caffeine: Yes Type: carbonated beverages Number of servings: 2 ROS ROS ED Constitutional Constitutional ED: Denies chills or fever(s) Eyes Eyes: Denies blurry vision or change in vision ENT ENT ED: Denies rhinorrhea or sore throat Cardiovascular Cardiovascular: Denies chest pain or palpitations Respiratory/Chest Respiratory/Chest: Reports cough; Denies dyspnea Gastrointestinal Gastrointestinal: Denies nausea or vomiting Genitourinary Genitourinary ED: Denies dysuria or hematuria Musculoskeletal Musculoskeletal: Denies back pain or neck pain Integumentary Reports rash; Denies abscess Neurologic Neurologic: Denies headache(s) or weakness Allergic/Immunologic Allergic/Immunologic ED: Reports urticaria; Denies mouth swelling EXAM Physical Exam Const Vital Signs: 05/30/23 14:18 Temperature 98 F Temperature Source Temporal Pulse Rate 76 Respiratory Rate 14 Blood Pressure 137/86 H Blood Pressure Mean 103 Pulse Ox 98 Oxygen Delivery Method Room Air Positive well nourished and well developed General Appearance ED: well developed and NAD HEENT Reports moist mucous membranes Neck supple and no JVD Resp normal respiratory effort and clear to auscultation bilaterally Cardio regular rate and regular rhythm GI non-tender and non-distended Palpation: soft Extremity normal to inspection General Extremety ED: Negative for edema or tenderness General Extremity: Negative for edema Neuro oriented x3, CN's II-XII intact bilaterally and no sensory deficits noted Sensorium / Orientation: alert Motor Exam: strength 5/5 throughout Psych mental status grossly normal Skin Skin Narrative: There is a generalized urticarial rash. There are no vesicles or pustules noted. There is no petechia noted. There is no involvement of the mucous membranes. Oral mucosa is pink and moist. Oropharynx is clear. Airway is patent. There is no sloughing of the skin noted. There is no lesions on the palms. MDM MDM MDM Narrative Medical decision making narrative: Patient was advised that this appears to be an allergic reaction. Patient will be given a dose of prednisone and hydroxyzine here. Patient was given prescriptions for prednisone and hydroxyzine. Patient was instructed to follow-up with her primary care physician tomorrow as scheduled. Patient was advised she may need to see an hoisting engine operator to determine the true etiology of this rash. Patient understood and was agreeable with the plan. All questions were answered. Discharge Plan Triage Chief Complaint: Allergic Reaction ED Provider: Rosendo Morocho Dx/Rx/DC Orders Clinical Impression: Urticaria, Allergic reaction Instructions: ED Hives (Adult) Prescriptions: New prednisone 20 mg tablet 40 mg PO DAILY 5 Days Qty: 10 0RF hydroxyzine pamoate [hydroxyzine pamoate] 25 mg capsule 25 mg PO TID PRN PRN (Reason: itching) Qty: 30 0RF No Action fluticasone propionate [Allergy Relief (fluticasone)] 50 mcg/actuation spray,suspension 2 spray intranasal DAILY Rx Instructions: administer into each nostril albuterol sulfate 2.5 mg /3 mL (0.083 %) solution for nebulization 2.5 mg inhalation Q4H PRN (Reason: shortness of breath) ketoconazole 2 % cream 1 applic topical DAILY ibuprofen 600 mg tablet 600 mg PO BID cetirizine 10 mg tablet 10 mg PO DAILY PRN atenolol 50 mg tablet 50 mg PO DAILY glimepiride 4 mg tablet 4 mg PO DAILY PRN (Reason: glucose >200) Creon 24,000-76,000 -120,000 unit capsule,delayed release(DR/EC) 1 cap PO TID Qty: 90 0RF Rx Instructions: administer with meals and/or snacks trazodone 100 MG tablet 100 mg PO QHS Patient Comments: Mood/anti-anxiety gemfibrozil 600 MG tablet 600 mg PO BID Patient Comments: Cholesterol alprazolam 0.5 MG tablet 0.5 mg PO QHS Patient Comments: anti-anxiety TAKES 2 TABS OF 0.5MG @ HS lisinopril 20 MG tablet 20 mg PO DAILY Qty: 30 0RF albuterol sulfate [Ventolin HFA] 1 INHALER inhaler 1 - 2 puff inhalation Q4H PRN PRN (Reason: Wheezing) Qty: 1 0RF furosemide 20 MG tablet 20 mg PO DAILY Patient Comments: buspirone 5 MG tablet 7.5 mg PO BID Patient Comments: anti-anxiety sertraline [Zoloft] 100 MG tablet 200 mg PO QHS metformin 500 MG tablet 500 mg PO BID potassium chloride 10 MEQ tablet 10 meq PO DAILY gabapentin [Neurontin] 300 mg capsule 600 mg PO .COMPLEX Rx Instructions: 600 mg PO take 2 caps in the am and 3 caps in the evening; fluticasone furoate-vilanterol 1 EACH blister with device 1 ea IH DAILY ipratropium bromide 0.02 % solution 2.5 ml inhalation Q6H PRN (Reason: shortness of breath or wheezing) Qty: 75 2RF cefdinir 300 mg capsule 300 mg PO Q12H Patient Comments: Take 1 capsule by mouth twice daily for 10 days. cholecalciferol (vitamin D3) 10 mcg (400 unit) capsule 10 mcg PO DAILY ursodiol 300 mg capsule 300 mg PO BID Qty: 60 11RF vitamin E mixed 400 unit capsule 800 unit PO DAILY Qty: 60 11RF pantoprazole [Protonix] 40 mg tablet,delayed release (DR/EC) 40 mg PO BID Qty: 60 2RF sucralfate 1 gram tablet 1 g PO QAC Qty: 90 1RF Primary Care Provider: Susanna Monroe Referrals: Susanna Monroe MD [Primary Care Provider] -
[2023-05-30] MEDS: hydrOXYzine PAM 25 MG Capsule PO (16:41)
[2023-05-30] MEDS: predniSONE 20 MG Tablet 40 MG PO (16:41)
== END 2023-05-30 16:46 | disposition home or self-care (01) ==
LOC: ED 16:12
PROVIDERS: Emergency Provider Emergency Medicine; PCP Internal Medicine; Visit Provider Emergency Medicine
DX: L50.9 Urticaria, unspecified (principal); T78.40XA Allergy, unspecified, initial encounter; G47.33 Obstructive sleep apnea (adult) (pediatric); F17.210 Nicotine dependence, cigarettes, uncomplicated; X58.XXXA Exposure to other specified factors, initial encounter
CPT/HCPCS: 99283

== ENCOUNTER → 2023-06-10 | Outpatient (CLI) | payer MEDICARE, MEDICAID, SELFPAY | END | disposition home or self-care (01) | PROVIDERS: PCP Internal Medicine; Referring Provider Nurse Practitioner; Visit Provider Nurse Practitioner | DX: N30.01 Acute cystitis with hematuria (principal) | CPT/HCPCS: 87077; 87086; 87088; 87186 ==

== ENCOUNTER → 2023-06-19 | Outpatient (CLI) | payer MEDICARE, MEDICAID, SELFPAY ==
[2023-06-23 16:07] LABS: Clam <0.10 kU/L (Class 0); Codfish <0.10 kU/L (Class 0); Corn <0.10 kU/L (Class 0); Egg, White 0.19 kU/L (Class 0/I); Milk (Cow) 0.49 kU/L (Class I); Peanut 0.44 kU/L (Class I); SCALLOP <0.10 kU/L (Class 0); SESAME SEED <0.10 kU/L (Class 0); Shrimp <0.10 kU/L (Class 0); Soybean <0.10 kU/L (Class 0); Walnut, (Food) <0.10 kU/L (Class 0); Wheat <0.10 kU/L (Class 0)
== END | disposition home or self-care (01) ==
LOC: LAB 15:37
PROVIDERS: PCP Internal Medicine; Referring Provider Internal Medicine Gastroenterology; Visit Provider Internal Medicine Gastroenterology
DX: K86.81 Exocrine pancreatic insufficiency (principal)
CPT/HCPCS: 36415; 86003

== ENCOUNTER → 2023-06-20 | Outpatient (CLI) | payer MEDICARE, MEDICAID, SELFPAY ==
[2023-06-27 13:08] LABS: Pancreatic Elastase, Fecal 145 (>200)
== END | disposition home or self-care (01) ==
LOC: LAB 14:49
PROVIDERS: PCP Internal Medicine; Referring Provider Internal Medicine Gastroenterology; Visit Provider Internal Medicine Gastroenterology
DX: K86.81 Exocrine pancreatic insufficiency (principal)
CPT/HCPCS: 82653

== ENCOUNTER 2023-06-27 22:12 | Emergency (ER) | payer MEDICARE, MEDICAID, SELFPAY ==
[2023-06-27 22:14] VITALS: BP 181/95; PULSE 79; RESP 24; TEMP 36.4; O2SAT 99; BMI 32.7
[2023-06-27 22:17] VITALS: BP 181/95; PULSE 79; RESP 24; TEMP 36.4; O2SAT 97
--- NOTE | 2023-06-27 22:36 | EKG12_ITS ---
Test Reason : GEN Blood Pressure : / mmHG Vent. Rate : 072 BPM Atrial Rate : 072 BPM P-R Int : 166 ms QRS Dur : 074 ms QT Int : 422 ms P-R-T Axes : 063 002 001 degrees QTc Int : 462 ms Normal sinus rhythm Normal ECG Confirmed by RODOLFO SUE, CARY ([id number]), city editor SHRUTHI TENA ([id number]) on 07/02/2023 12:54:25 PM Referred By: BB Confirmed By:ELISA REYNOLDS MD
--- NOTE | 2023-06-27 22:36 | RAD_ITS ---
STUDY: X-RAY CHEST REASON FOR EXAM: Female, 63 years old. chest pain/sob TECHNIQUE: PA and lateral views of the chest. COMPARISON: 12/27/2022 FINDINGS: The lungs are clear and expanded. There is no demonstrated pleural abnormality. Normal size heart. Normal mediastinum and norah. Normal visualized pulmonary arteries. Normal visualized aortic arch and descending thoracic aorta. Normal visualized thoracic spine. Normal visualized ribs, clavicles, and shoulders. There is no demonstrated abnormality of the visualized soft tissue structures of the upper abdomen. RAD/Chest PA and Lateral IMPRESSION: Normal x-ray examination of the chest. Electronically Signed: Apollo Monteiro MD at 23:05 EDT ,
[2023-06-27 22:43] VITALS: O2SAT 96
[2023-06-27] MEDS: Aspirin 81 MG TAB.CHEW 324 MG PO (22:44)
--- NOTE | 2023-06-27 22:55 | EX.ED.DYSGE1 ---
HPI History of Present Illness Chief Complaint: General Illness Informant: patient Narrative Narrative: For the past 2 or 3 days patient has had gradual onset of chest heaviness, some separate's chest tightness that is making her feel dyspneic, all of this is substernal nonlateralizing without radiation, she has some chronic orthopnea that is no different, chronic leg edema that is actually better than usual for which she is taking Lasix chronically, she has some chronic upper abdominal symptoms that are no different lately, she is scheduled for an EGD coming up for that. She states she checked her blood pressure prior to coming here and it was 170/130, which was concerning to her, she is compliant with her blood pressure medication and all of her other prescriptions. She is a heavy smoker. She has COPD. She has been wheezing. She denies having a significant increased cough but states that she does feel like she needs to get some sputum up and cannot at times, and a lot of times that is when she is feeling tight. The dyspnea is mostly with exertion. Chronic diarrhea unchanged no melena or bright red blood per rectum. No urinary symptoms. [facility] Medical History Abdominal pain Anxiety Anxiety and depression Arthritis BiPAP (biphasic positive airway pressure) dependence Bladder disease Cardiology follow-up encounter COPD (chronic obstructive pulmonary disease) Depression Diabetes Diarrhea Dietary restriction Elevated CPK Fatty liver Gastric reflux Hemorrhage of gastrointestinal tract History of echocardiogram History of hiatal hernia History of stress test Hypertension Mixed hyperlipidemia YARY treated with BiPAP Osteoarthritis Postoperative anemia Sleep apnea Smoker Type 2 diabetes mellitus Wears dentures Wears partial dentures Home Medications gemfibrozil 600 mg tablet 600 mg PO BID 06/13/14 [History Last Taken 07/19/15 600 MG] trazodone 100 mg tablet 100 mg PO QHS 06/13/14 [History Last Taken 07/19/15 100 MG] alprazolam 0.5 mg tablet 0.5 mg PO QHS ANXIETY 07/30/15 [History Last Taken 2 Weeks Ago ~07/16/15 2 TABS] lisinopril 20 mg tablet 20 mg PO DAILY #30 TABLETS 08/02/15 [Rx Last Taken Unknown] albuterol sulfate 90 mcg/actuation aerosol inhaler (Ventolin HFA) 1 - 2 puff inhalation Q4H PRN PRN Wheezing ##1 08/08/15 [Rx Last Taken Unknown] furosemide 20 mg tablet 20 mg PO DAILY 09/26/15 [History Last Taken Unknown] buspirone 5 mg tablet 7.5 mg PO BID 07/11/18 [History Last Taken Unknown] metformin 500 mg tablet,extended release 24 hr 500 mg PO BID 07/11/18 [History Last Taken Unknown] potassium chloride 10 mEq tablet,extended release(part/cryst) 10 meq PO DAILY 07/11/18 [History Last Taken Unknown] sertraline 100 mg tablet (Zoloft) 200 mg PO QHS 07/11/18 [History Last Taken Unknown] fluticasone furoate 100 mcg-vilanterol 25 mcg/dose inhalation powder 1 ea IH DAILY 07/29/19 [History Last Taken Unknown] ipratropium bromide 0.02 % solution for inhalation 2.5 ml inhalation Q6H PRN shortness of breath or wheezing #75 mL 08/21/21 [Rx Last Taken Unknown] albuterol sulfate 2.5 mg/3 mL (0.083 %) solution for nebulization 2.5 mg inhalation Q4H PRN shortness of breath 11/15/21 [History Last Taken Unknown] atenolol 50 mg tablet 50 mg PO DAILY 11/15/21 [History Last Taken Unknown] cetirizine 10 mg tablet 10 mg PO DAILY PRN ALLERGIES 11/15/21 [History Last Taken Unknown] gabapentin 300 mg capsule (Neurontin) 600 mg PO .COMPLEX 11/15/21 [History Last Taken Unknown] ibuprofen 600 mg tablet 600 mg PO BID 11/15/21 [History Last Taken Unknown] ketoconazole 2 % topical cream 1 applic topical DAILY 11/15/21 [History Last Taken Unknown] fluticasone propionate 50 mcg/actuation nasal spray,suspension (Allergy Relief (fluticasone)) 2 spray intranasal DAILY 01/04/22 [History Last Taken Unknown] glimepiride 4 mg tablet 4 mg PO DAILY PRN glucose >200 01/04/23 [History Last Taken Unknown] ursodiol 300 mg capsule 300 mg PO BID #60 caps 03/26/23 [Rx Last Taken Unknown] vitamin E mixed 400 unit capsule 800 unit (2 x 400 unit) PO DAILY #60 caps 03/26/23 [Rx Last Taken Unknown] pantoprazole 40 mg tablet,delayed release (Protonix) 40 mg PO BID #60 tabs 04/09/23 [Rx Last Taken Unknown] hydroxyzine pamoate 25 mg capsule 25 mg PO TID PRN PRN itching #30 CAPSULES 05/30/23 [Rx Last Taken Unknown] dicyclomine 10 mg capsule 10 mg PO TID 30 days #90 caps 06/25/23 [Rx Last Taken Unknown] loperamide 2 mg tablet (Anti-Diarrheal (loperamide)) 2 mg PO Q6H PRN loose stool 30 days #120 tabs 06/25/23 [Rx Last Taken Unknown] Allergy/AdvReac Type Severity Reaction Status Date / Time Cephalosporins Allergy Intermediate Rash Verified 06/27/23 22:13 hydromorphone [From Dilaudid] Allergy Intermediate Altered Verified 06/27/23 22:13 mental status pseudoephedrine Allergy Intermediate Tachycardia Verified 06/27/23 22:13 fluoxetine [From Prozac] Allergy Chest Verified 06/27/23 22:13 tightness house dust mite Allergy NEEDS Verified 06/27/23 22:13 FOLLOW-UP hydrocodone [From Vicodin] Allergy Upset Verified 06/27/23 22:13 Stomach Penicillins Allergy Hives Verified 06/27/23 22:13 prednisone AdvReac PT UNABLE Verified 06/27/23 22:13 TO RESPOND-NEEDS F/U Family History Mother Glaucoma Cervical cancer Asthma Father , at 77 Myocardial infarction Cancer Lung, metastatic to bone CAD (coronary artery disease) History of coronary artery bypass surgery Aortic aneurysm and dissection Sister Colon polyp Thyroid disorder Lung cancer Surgical History H/O vaginal hysterectomy History of appendectomy History of back surgery History of bladder suspension procedure History of lumbar laminectomy History of total right knee replacement Hx of cholecystectomy Hx of tonsillectomy S/P total knee arthroplasty Tubal ligation status Social History Smoking Status: Current every day smoker tobacco type: cigarettes alcohol intake: never substance use type: does not use caffeine: Yes Type: carbonated beverages Number of servings: 2 ROS ROS ED Constitutional Constitutional ED: Denies chills or fever(s) Eyes Eyes: Denies change in vision or diplopia ENT ENT ED: Denies rhinorrhea or sore throat Cardiovascular Cardiovascular: Reports chest pain and orthopnea; Denies palpitations Respiratory/Chest Respiratory/Chest: Reports chest tightness, cough, dyspnea, dyspnea on exertion and orthopnea Gastrointestinal Gastrointestinal: Reports abdominal pain, bloating and diarrhea; Denies nausea or vomiting Genitourinary Genitourinary ED: Denies dysuria or hematuria Musculoskeletal Musculoskeletal: Denies back pain or neck pain Integumentary Denies abscess or rash Neurologic Neurologic: Reports headache(s); Denies paresthesias or weakness Psychiatric Psychiatric: Denies anxiety or suicidal thoughts EXAM Physical Exam Const Vital Signs: 06/27/23 22:14 06/27/23 22:17 06/27/23 22:43 Temperature 97.5 F L 97.5 F L Temperature Source Temporal Temporal Pulse Rate 79 79 Respiratory Rate 24 H 24 H Respiratory Effort Blood Pressure 181/95 H 181/95 H Blood Pressure Mean 123 123 Pulse Ox 99 97 96 Oxygen Delivery Method Room Air 06/27/23 22:43 06/27/23 23:01 06/27/23 23:19 Temperature 97.5 F L Temperature Source Temporal Pulse Rate 72 68 Respiratory Rate 14 18 Respiratory Effort Short of Breath Blood Pressure 147/86 H Blood Pressure Mean 106 Pulse Ox 96 Oxygen Delivery Method Room Air Positive well nourished and well developed General Appearance ED: well developed and NAD HEENT Reports moist mucous membranes normocephalic and atraumatic Eyes PERRL and EOMs intact bilaterally Neck full ROM, supple and no JVD Resp normal respiratory effort Resp Narrative: Diminished throughout. Symmetric. Mild inspiratory wheezes, otherwise clear to auscultation throughout. Speaking in full sentences. No distress. No splinting on deep inspiration. Cardio regular rate, regular rhythm and no murmurs GI non-distended Auscultation: normoactive bowel sounds Palpation: soft Back/Spine no CVA tenderness General Back: other FROM Extremity normal to inspection General Extremety ED: Negative for edema, pulses abnormal or tenderness General Extremity: Negative for edema or pulses abnormal Neuro oriented x3, CN's II-XII intact bilaterally and no sensory deficits noted Sensorium / Orientation: awake and alert Motor Exam: strength 5/5 throughout Skin no rashes or lesions noted and no wounds MDM MDM MDM Narrative Medical decision making narrative: Differential here is fairly wide especially with her blood pressure 181/95, headache, chest heaviness and tightness, some COPD symptoms but not symptoms that necessarily qualify for a true COPD exacerbation, she does not sound like she has pneumonia clinically, but we did obtain a two-view chest x-ray which on my interpretation is normal showing no signs of an effusion, edema, or pneumonia. Radiology in agreement. Acute coronary syndrome and other cardiac abnormalities are in the differential. Her EKG, troponin, and BNP are all extremely normal after having symptoms for couple days. Given all of this, as well as her other labs, I am comfortable with her being discharged home. She feels better after we gave her an albuterol treatment. I was going to give her a dose of hydralazine, but on repeat after the initial blood pressure, her measurement is 147/86 so we held off on that, and she had a couple other systolics that were 153 and 142 after that while she was being observed in waiting for the work-up, so I feel better that her blood pressure truly is down right now, and not in need of any emergent medication adjustment or treatment. I discussed following up and having this rechecked in the near future, the GI issues that she has are in the differential is causing this chest discomfort as well, and the single episode of elevated blood pressure may or may not be related to any of the symptoms. As I discussed with her, it may have caused her to have a headache and feel jittery tonight. Her potassium is a little low, she states it has been low on the last couple measurements, her renal function is normal she is on furosemide and she is already taking once daily potassium supplementation. I recommend taking an additional dose for the next 4 days or so, before she follows up with her doctor. She was given an oral dose of 20 mill equivalents here prior to discharge she is comfortable with that plan. History & Record Review Additional record(s) reviewed:: Prior outpatient record (Echocardiogram 2021, EF 70%, no major signs of congestive heart failure but some minor valvular issues.) Lab Data Attestation: I reviewed the patient's lab results. Labs: Laboratory Results - last 24 hr 06/27/23 22:27 WBC 7.1 RBC 5.02 Hgb 14.3 Hct 42.3 MCV 84.3 MCH 28.5 MCHC 33.8 RDW Std Deviation 37.5 RDW Coeff of Rodrigo 12.5 Plt Count 326 MPV 9.6 Immature Gran % (Auto) 0.300 Neut % (Auto) 40.1 L Lymph % (Auto) 48.9 H [place] % (Auto) 5.9 Eos % (Auto) 4.5 Baso % (Auto) 0.3 Absolute Neuts (auto) 2.8 Absolute Lymphs (auto) 3.45 Nucleated RBC % 0 Sodium 139 Potassium 3.3 L Chloride 105 Carbon Dioxide 26.0 Anion Gap 8 BUN 12 Creatinine 0.59 Estim Creat Clear Calc 91.36 Est GFR (MDRD) Af Amer 133 Est GFR (MDRD) Non-Af 110 BUN/Creatinine Ratio 20.5 H Glucose 181 H Calcium 8.6 Troponin I High Sens 6 B-Natriuretic Peptide 68.4 Radiography Diagnostic Testing: Clinical Impression(s) from Imaging Studies Chest X-Ray 06/27/23 22:36 IMPRESSION: Normal x-ray examination of the chest. Electronically Signed: Apollo Monteiro MD at 23:05 EDT , Rhythm Strip Rhythm Strip: Sinus Rhythm Rate: 72 Ectopy: None EKG Initial EKG: Attestation: I personally reviewed and interpreted this EKG as follows: Interpretation: Sinus Rhythm and No Acute Injury Pattern Comments: Normal EKG Discharge Plan Triage Chief Complaint: General Illness ED Provider: Corey Vernon Dx/Rx/DC Orders Clinical Impression: Chest pain, unspecified, COPD (chronic obstructive pulmonary disease), Episode of hypertension, Hypokalemia due to excessive renal loss of potassium Instructions: Hypokalemia Dc, ED Chest Pain, Noncardiac Prescriptions: No Action fluticasone propionate [Allergy Relief (fluticasone)] 50 mcg/actuation spray,suspension 2 spray intranasal DAILY Rx Instructions: administer into each nostril albuterol sulfate 2.5 mg /3 mL (0.083 %) solution for nebulization 2.5 mg inhalation Q4H PRN (Reason: shortness of breath) ketoconazole 2 % cream 1 applic topical DAILY ibuprofen 600 mg tablet 600 mg PO BID cetirizine 10 mg tablet 10 mg PO DAILY PRN (Reason: ALLERGIES) atenolol 50 mg tablet 50 mg PO DAILY glimepiride 4 mg tablet 4 mg PO DAILY PRN (Reason: glucose >200) trazodone 100 MG tablet 100 mg PO QHS Patient Comments: Mood/anti-anxiety gemfibrozil 600 MG tablet 600 mg PO BID Patient Comments: Cholesterol alprazolam 0.5 MG tablet 0.5 mg PO QHS Patient Comments: anti-anxiety TAKES 2 TABS OF 0.5MG @ HS lisinopril 20 MG tablet 20 mg PO DAILY Qty: 30 0RF albuterol sulfate [Ventolin HFA] 1 INHALER inhaler 1 - 2 puff inhalation Q4H PRN PRN (Reason: Wheezing) Qty: 1 0RF furosemide 20 MG tablet 20 mg PO DAILY Patient Comments: buspirone 5 MG tablet 7.5 mg PO BID Patient Comments: anti-anxiety sertraline [Zoloft] 100 MG tablet 200 mg PO QHS metformin 500 MG tablet 500 mg PO BID potassium chloride 10 MEQ tablet 10 meq PO DAILY gabapentin [Neurontin] 300 mg capsule 600 mg PO .COMPLEX Rx Instructions: 600 mg PO take 2 caps in the am and 3 caps in the evening; fluticasone furoate-vilanterol 1 EACH blister with device 1 ea IH DAILY ipratropium bromide 0.02 % solution 2.5 ml inhalation Q6H PRN (Reason: shortness of breath or wheezing) Qty: 75 2RF hydroxyzine pamoate [hydroxyzine pamoate] 25 mg capsule 25 mg PO TID PRN PRN (Reason: itching) Qty: 30 0RF ursodiol 300 mg capsule 300 mg PO BID Qty: 60 11RF vitamin E mixed 400 unit capsule 800 unit PO DAILY Qty: 60 11RF pantoprazole [Protonix] 40 mg tablet,delayed release (DR/EC) 40 mg PO BID Qty: 60 2RF loperamide [Anti-Diarrheal (loperamide)] 2 mg tablet 2 mg PO Q6H PRN (Reason: loose stool) 30 Days Qty: 120 0RF dicyclomine 10 mg capsule 10 mg PO TID 30 Days Qty: 90 0RF Primary Care Provider: Susanna Monroe Referrals: Susanna Monroe MD [Primary Care Provider] - 3-5 Days Activity Restrictions/Additional Instructions: For the next 4 days or so, take 1 potassium tablet twice per day Disposition Disposition: Home, Self Care
[2023-06-27] MEDS: Albuterol 2.5 MG/3 ML VIAL.NEB. INHALATION (23:00)
[2023-06-27 23:01] VITALS: PULSE 72; RESP 14
[2023-06-27 23:02] LABS: Absolute Lymphocyte Count 3.45 X10^3/uL (0.83-4.51); Absolute Neutrophil Count 2.8 X10^3/uL (2.0-7.7); Basophil# 0.02 X10^3/uL; Basophil% 0.3 % (0-1); Eosinophil# 0.32 X10^3/uL; Eosinophils% 4.5 % (0-5); Hematocrit 42.3 % (37-47); Hemoglobin 14.3 g/dL (12.0-15.0); Lymphocyte # 3.45 X10^3/ul (0.83-4.51); Lymphocyte % 48.9 % (19-41); Mean Corp Hgb Conc 33.8 g/dL (32-36); Mean Corpuscular Hgb 28.5 pg (27.0-32.0); Mean Corpuscular Volume 84.3 fL (81-99); Mean Platelet Vol. 9.6 fl (6.2-12.0); Monocyte# 0.42 X10^3/uL; Monocyte% 5.9 % (0-10); NRBC Flagged by Analyzer 0 % (0-5); Neutrophil # 2.83 X10^3/uL (2.7-7.7); Neutrophil % 40.1 % (47-70); Platelet Count 326 K/mm3 (150-450); RBC Distribution Width CV 12.5 % (11.6-14.6); RBC Distribution Width SD 37.5 fl (35.1-43.9); Red Blood Count 5.02 M/mm3 (4.2-5.4); White Blood Count 7.1 K/mm3 (4.4-11.0)
[2023-06-27 23:13] LABS: Anion Gap 8 (5-15); BUN 12 mg/dL (7-18); BUN/Creat Ratio 20.5 RATIO (10-20); Calcium,Total 8.6 mg/dL (8.5-10.1); Chloride 105 mmol/L (98-107); Creatinine, Serum 0.59 mg/dL (0.55-1.02); EST Glomerular Filtration Rate 110 mL/min (>60); Est Glom Filt Rate - Afr Amer 133 mL/min (>60); Estimated Creatinine Clearance 91.36 ml/min; Glucose 181 mg/dL (74-106); Potassium 3.3 mmol/L (3.5-5.1); Sodium Level 139 mmol/L (136-145); Troponin-I HS 6 pg/mL (3.0-54.0)
[2023-06-27 23:19] VITALS: BP 147/86; PULSE 68; RESP 18; TEMP 36.4; O2SAT 96
[2023-06-27 23:22] LABS: BNP,B-Type NATRIURETIC PEPTIDE 68.4 pg/mL (0-100)
[2023-06-28 00:27] VITALS: BP 142/76; PULSE 80; RESP 20; O2SAT 93
[2023-06-28] MEDS: Potassium Chloride Oral Tablet 20 MEQ PO (00:32)
== END 2023-06-28 00:39 | disposition home or self-care (01) ==
PROVIDERS: Emergency Provider Emergency Medicine; PCP Internal Medicine; Visit Provider Emergency Medicine
DX: R07.9 Chest pain, unspecified (principal); J44.9 Chronic obstructive pulmonary disease, unspecified; I10 Essential (primary) hypertension; E87.6 Hypokalemia; G47.33 Obstructive sleep apnea (adult) (pediatric); F17.210 Nicotine dependence, cigarettes, uncomplicated; R06.00 Dyspnea, unspecified
CPT/HCPCS: 71046; 80048; 83880; 84484; 85025; 93005; 94640; 99283; A4216

== ENCOUNTER 2023-07-01 07:07 | Day surgery (SDC) | payer MEDICARE, MEDICAID, SELFPAY ==
[2023-07-01] VITALS (9 sets, daily range): BP systolic 83–152; BP diastolic 50–91; PULSE 68–78; RESP 16–24; TEMP 36.3–37; O2SAT 18–96; BMI 32.0
[2023-07-01] MEDS: Lactated Ringers 1,000 ML 15 ML IV (07:31)
--- NOTE | 2023-07-01 08:00 | PCM.HP.BLA ---
History and Physical Date of Admission: 07/01/23 62 F who presents to the office today for a follow up. Prior workup:?Stool?H.Pylori, C.diff, lactoferrin, EP WNL.? *BGI established 12.14.21 with postprandial abdominal bloating and diarrhea 15+/day with periodic incontinence?Biochemical?CBC, ESR, CMP, CRP, LDH, TSH, JOSE F comp, gastrin, celiac without pertinent abnormality?Stool O/P, giardia?CT abd/pel 12.22.21?Gastric emptying study 12.26.21?US RUQ and?Elastography 01.09.22? OV 01.15.22 symptoms improved with use of Creon; metformin cessation did not change symptoms. ?Biochemical?ferritin, ceruloplasmin, haptoglobin, AMA, ASM, SILAS, AFP, ACNA, ammonia, hepatitis, HIV without pertinent abnormality.?Copper H160, LDL H57, triglycerides H285, CPK H382, A1c H7.1? Contact she transferred care to another GI who d/c?d ursodiol.?EGD and colonoscopy 02.22.22 [facility]?EGD gastritis; small hiatal hernia; irregular GE junction.?Colonoscopy single 1cm sessile polyp.? OV 01.04.23 with nausea, bloating, heartburn and diarrhea 10-12/day since Fall 2020. [place] is primary food as other foods worsen symptoms. Previously prescribed Creon helpful.?Zenpep samples.?Biochemical?ESR, CRP, lipase, IgG subclasses without pertinent abnormality.?CRP H3.34, lipase H130?Stool calprotectin, lactoferrin C.Difficile, EP WNL? States that she continues to have diarrhea frequently, frequent bloating, and abdominal pain. States that she also a lot of rectal pain and feels like something is protruding from rectum. ROS Const Constitutional: Positive for fatigue, headache(s) and weakness; No fever(s), frequent falls or weight change ENT ENT: Positive for headache(s); No difficulty swallowing Cardio Cardiology: Positive for leg pain with exertion Gastro GI: Positive for abdominal pain, bloating, change in bowel habits, diarrhea, heartburn, nausea/dyspepsia and vomiting; No constipation, difficulty swallowing, Vomiting blood/hematemesis or Blood in stool Musc Musculoskeletal: Positive for abnormal gait, joint pain, back pain, muscle weakness, stiffness, Arthritis and leg pain with exertion; No joint swelling, muscle cramps, numbness, tingling, sciatica or leg pain at night Skin Skin: No dry skin, lesions, itchy eyes or rash Neuro Neurology: Positive for abnormal gait, weakness and headache(s); No dizziness, frequent falls, numbness, tingling, tremor(s), Increased tone in limbs, paralysis or seizures Psych Psychiatric: Positive for anxiety, Positive for depression, No paranoia, No Behavioral Problems, No Compulsive Behavior, No hyperactivity, No inattentiveness, No obsessions/compulsions, No Temper Tantrums and No suicidal ideation Endo Endocrine: Positive for fatigue; No weight change Aller/Imm Allergy/Immunologic: No itchy eyes Tolu/Lymp Hematologic/Lymphatic: No easy bleeding or easy bruising Exam Const General: cooperative Nutritional Appearance: obese Orientation: alert, awake and oriented x3 Eyes Sclera: sclerae normal GI Inspection: obesity Palpation: soft, hepatosplenomegaly present, no masses and tender in the RUQ Skin General: no jaundice Neuro Speech: speech normal Gait: normal gait Psych Mood: congruent mood Quality Reporting Tobacco Screening ([facility] 138) Smoking Status: Current every day smoker Assessment and Plan Assessment and Plan (1) Diarrhea: Status: Chronic Plan: 62 yr old female with chronic postprandial upper abd pain and bloating, diarrhea, heartburn. Will eval pancreas with blood and stool tests. She did feel better last year on PERT (Creon). Also stool tests for inflammation and infection. Samples provided of Zenpep, 1-2 caps with snack, 2-3 caps with meal. Will contact her with results and plan. Will get results from her EGD and colonoscopy at [facility] in 02/2022. f/u next available. (2) Abdominal pain: Status: Chronic Plan: We will give her a sits marker did perform a sits marker test along with a capsule endoscopy to evaluate her bloating. (3) Bloating: Status: Chronic Plan: Likely secondary to bacterial overgrowth we will give her antibiotic for approximately 2 weeks. (4) Heartburn: Status: Chronic Plan: Consider PPI Orders: Orders Abdomen Single View Today K59.00 - Constipation, unspecified I have examined the patient and the H&P has been reviewed. There are no clinical changes since date of exam.
--- NOTE | 2023-07-01 08:15 | EGD_PTH ---
PATIENT: GARLAND PARIKH LOC: EN U#:[id number] AGE/SX: 63/F ROOM: RE07/01/[address]: Dr. Uriel Caceres DO : 1960 BED: DIS: 07/01/2023 SPEC #: [id number] RECD: 07/01/23 08:59 STATUS: ANNIE SHAWNA #: [id number] ZACH: 07/01/23 08:[address]: Uriel Caceres DEPT: SURGICAL PATHOLOGY RECD BY: Douglas Wilkinson ENTERED: 07/01/23 11:08 SP TYPE: EGD BIOPSY OT DR: Dr. Susanna Monroe MD Tissues: A - Duodenum, NOS B - Gastric mucous membrane C - Esophagus, NOS Procedures: Special Stain Group II Surgery Specimen Level IV Alcian Blue/PAS (control) HEADER OPERATION: EGD PRE-OP DIAGNOSIS: Diarrhea, abdominal pain, bloating, heartburn TISSUE SUBMITTED: A - Duodenum, B - Gastric body, C - Distal esophagus MICROSCOPIC DIAGNOSIS A. Duodenum, biopsy: Fragments of duodenal mucosa, no pathologic diagnosis. B. Gastric body, biopsy: Mild gastritis. See microscopic description and comment. C. Distal esophagus, biopsy: Fragments of gastric mucosa with chronic inflammation. Intestinal metaplasia (goblet cell metaplasia) not identified. See comment. SJ:joshua 07/02/2023 COMMENT B. The results of immunohistochemistry for Helicobacter pylori will be reported separately ([id number]). C. Alcian blue/PAS stain with matched control is used in the evaluation of the specimen. MICROSCOPIC DESCRIPTION Slides are reviewed. B. The specimen shows fragments of gastric mucosa with chronic inflammatory cell infiltrates in the lamina propria consisting of lymphocytes and plasma cells, consistent with mild chronic gastritis. A fragment of unremarkable duodenal mucosa is also noted in the specimen. GROSS DESCRIPTION A - Received in fixative is one container labeled with the patient's name and designated duodenum. The specimen consists of multiple irregular fragments of light todd soft tissue that in aggregate measure 0.5 x 0.3 x 0.1 cm. The specimen is totally submitted in one cassette. B - Received in fixative is one container labeled with the patient's name and designated gastric body. The specimen consists of multiple irregular fragments of light todd soft tissue that in aggregate measure 1.0 x 0.3 x 0.1 cm. The specimen is totally submitted in one cassette. C - Received in fixative is one container labeled with the patient's name and designated distal esophagus. The specimen consists of multiple irregular fragments of light todd soft tissue that in aggregate measure 0.8 x 0.3 x 0.1 cm. The specimen is totally submitted in one cassette. / SJ:rg 07/01/2023 TC:3 CPT: 61040 x3, 07650
--- NOTE | 2023-07-01 08:15 | IMM_PTH ---
PATIENT: GARLAND PARIKH LOC: EN U#:[id number] AGE/SX: 63/F ROOM: RE07/01/[address]: Dr. Uriel Caceres DO : 1960 BED: DIS: 07/01/2023 SPEC #: [id number] RECD: 07/01/23 13:23 STATUS: ANNIE REQ #: [id number] ZACH: 07/01/23 08:[address]: Uriel Caceres DEPT: IMMUNOHISTOCHEMISTRY RECD BY: Mikki Brown ENTERED: 07/01/23 13:24 SP TYPE: IMMUNO OTHR DR: Dr. Susanna Monroe MD Tissues: B - Stomach, NOS Procedures: H Pylori (initial) PHYSICIAN & INSTITUTION [address] [address] SPECIMEN INFORMATION: Tissue Source: B. Gastric body Clinical Info: Diarrhea, abdominal pain, bloating, heartburn Specimen Number: [id number] CPT code: 66558 METHODOLOGY: Deparaffinized sections of prefer/formalin-fixed tissue or PAP/DQ stained slides are incubated with monoclonal/polyclonal antibodies/oligonucleotide probes. Localization is made via biotin free immunoperoxidase method. Appropriate controls are performed and reacted as expected. Results on target cell population are indicated in the following table: RESULTS: ANTIBODY / CLONE RESULT Block B H Pylori (polyclonal) negative These tests were developed and their performance characteristics determined by [facility]. They may not have been cleared or approved by the U.S. Food and Drug Administration. The FDA has determined that such clearance or approval is not necessary. The above immunohistochemical/dualISH markers are ordered and reviewed by the Pathologist. INTERPRETATION: B. Gastric body, biopsy: Negative for Helicobacter pylori organisms. SJ:joshua 07/02/2023
--- NOTE | 2023-07-01 08:26 | OP.EGD_ITS ---
Patient Name: Ibis De Santiago Procedure Date: 07/01/2023 7:56 AM Date of : 1960 Age: 63 Procedure: Upper GI endoscopy Indications: Functional Dyspepsia, Failure to respond to medical treatment Providers: Uriel Caceres DO Referring MD: Susnana Monroe Medicines: Monitored Anesthesia Care Patient Profile: This is a 63 year old female. Refer to note in patient chart for documentation of history and physical. Patient has symptoms of chronic global abdominal pain and chronic dyspepsia. Complications: No immediate complications. Procedure: Pre-Anesthesia Assessment: - Prior to the procedure, a History and Physical was performed, and patient medications and allergies were reviewed. The patient is competent. The risks and benefits of the procedure and the sedation options and risks were discussed with the patient. All questions were answered and informed consent was obtained. Patient identification and proposed procedure were verified by the physician in the pre-procedure area. Mental Status Examination: alert and oriented. Airway Examination: normal oropharyngeal airway and neck mobility. Respiratory Examination: clear to auscultation. CV Examination: normal. Prophylactic Antibiotics: The patient does not require prophylactic antibiotics. Prior Anticoagulants: The patient has taken no anticoagulant or antiplatelet agents. ASA Grade Assessment: III - A patient with severe systemic disease. After reviewing the risks and benefits, the patient was deemed in satisfactory condition to undergo the procedure. The anesthesia plan was to use monitored anesthesia care (MAC). Immediately prior to administration of medications, the patient was re-assessed for adequacy to receive sedatives. The heart rate, respiratory rate, oxygen saturations, blood pressure, adequacy of pulmonary ventilation, and response to care were monitored throughout the procedure. The physical status of the patient was re-assessed after the procedure. After obtaining informed consent, the endoscope was passed under direct vision. Throughout the procedure, the patient's blood pressure, pulse, and oxygen saturations were monitored continuously. The gastroscope was introduced through the mouth, and advanced to the second part of duodenum. The upper GI endoscopy was accomplished without difficulty. The patient tolerated the procedure well. Scope In: 8:06:33 AM Scope Out: 8:10:56 AM Total Procedure Duration Time 0 hours 4 minutes 23 seconds Findings: The Z-line was irregular and was found 35 cm from the incisors. Biopsies were taken with a cold forceps for histology. Verification of patient identification for the specimen was done. Estimated blood loss was minimal. Diffuse mildly congested mucosa was found in the gastric body. Biopsies were taken with a cold forceps for histology. Verification of patient identification for the specimen was done. Estimated blood loss was minimal. A few localized 2 mm erosions with stigmata of recent bleeding were found in the gastric body. Biopsies were taken with a cold forceps for Helicobacter pylori testing. Verification of patient identification for the specimen was done. Biopsies were taken with a cold forceps for histology. Estimated blood loss was minimal. Mild inflammation characterized by congestion (edema), erosions and erythema was found in the duodenal bulb. Biopsies were taken with a cold forceps for histology. Impression: - Z-line irregular, 35 cm from the incisors. Biopsied. - Congestive gastropathy. Biopsied. - Erosive gastropathy with stigmata of recent bleeding. Biopsied. - Duodenitis. Biopsied. Recommendation: - Await pathology results. - Continue present medications. Procedure Code(s): --- Professional --- 80294, Esophagogastroduodenoscopy, flexible, transoral; with biopsy, single or multiple CPT copyright 2021 [employer]. All rights reserved. The codes documented in this report are preliminary and upon hide grader review may be revised to meet current compliance requirements. Uriel Caceres DO 07/01/2023 8:26:23 AM This report has been signed electronically. Number of Addenda: 0 Note Initiated On: 07/01/2023 7:56 AM
--- NOTE | 2023-07-01 08:27 | OP.CCLET_ITS ---
07/01/2023 Susanna Monroe [address] [place] [address] Re : Upper GI endoscopy procedure for Ibis De Santiago Dear Dr. Monroe This procedure was performed on Saturday, July 01, 2023. My impressions and recommendations are as follows: Impressions : - Z-line irregular, 35 cm from the incisors. Biopsied. - Congestive gastropathy. Biopsied. - Erosive gastropathy with stigmata of recent bleeding. Biopsied. - Duodenitis. Biopsied. Recommendations : - Await pathology results. - Continue present medications. My findings are described in the full procedure note, which is enclosed. If I can be of further assistance, please feel free to contact me at . Sincerely, Uriel Caceres, 07/01/2023 8:26:23 AM This report has been signed electronically.
[2023-07-01] MEDS: Ipratropium/Albuterol Sulfate 3 ML AMPUL.NEB INHALATION (08:30)
== END 2023-07-01 09:29 | disposition home or self-care (01) ==
LOC: EN 07:08 → AC 07:09
PROVIDERS: PCP Internal Medicine; Referring Provider Internal Medicine; Visit Provider Internal Medicine Gastroenterology
PROC: 0DJ08ZZ Inspection of Upper Intestinal Tract, Via Natural or Artificial Opening Endoscopic (ICD-10-PCS; CPT 43235; principal; 2023-07-01 08:10)
DX: K29.70 Gastritis, unspecified, without bleeding (principal); J44.9 Chronic obstructive pulmonary disease, unspecified; E11.9 Type 2 diabetes mellitus without complications; R19.7 Diarrhea, unspecified; F17.200 Nicotine dependence, unspecified, uncomplicated; K30 Functional dyspepsia; E66.9 Obesity, unspecified; G47.33 Obstructive sleep apnea (adult) (pediatric); I10 Essential (primary) hypertension; F32.A Depression, unspecified; K31.89 Other diseases of stomach and duodenum; Z79.84 Long term (current) use of oral hypoglycemic drugs; Z79.899 Other long term (current) drug therapy; Z68.32 Body mass index [BMI] 32.0-32.9, adult
CPT/HCPCS: 43239; 88305; 88313; 88342; 94640; J7120; J2405

== ENCOUNTER 2023-09-20 17:03 | Emergency (ER) | payer MEDICARE, MEDICAID, SELFPAY ==
[2023-09-20 17:05] VITALS: BP 178/104; PULSE 87; RESP 16; TEMP 36.1; O2SAT 96; BMI 32.5
[2023-09-20 17:08] VITALS: BP 178/104; PULSE 87; RESP 16; TEMP 36.1; O2SAT 96
--- NOTE | 2023-09-20 18:06 | EX.ED.VIS.HA ---
HPI History of Present Illness Chief Complaint: Headache Informant: patient Narrative Narrative: Patient presents with headache. Patient states she did have a fall at the end of July. She did hit the right side of her head and face. But she did not lose consciousness. She states she was not really having a lot of symptoms then. Somewhere toward the middle of August on about the she started to get nasal congestion. She states she was congested and could not breathe through her nose. She started to get some pressure in her face behind both eyes. It was not sudden onset or thunderclap. It was not severe. She had been seen at urgent care where they treated her as sinusitis with doxycycline but there is no change in her symptoms. She states the headache is more now on the right frontal area. There is 1 spot that she can find and press that is tender. This is superior and anterior to the temporal artery. But there is no skin changes. She has never had any neurologic deficits. No nausea vomiting. She has had headaches occasionally but does not get them regularly. She normally gets sinus pressure type headaches which is what she thought this was but is just not going away. She has never had fever with it. Gait is normal. Coordination is normal. [facility] Medical History Abdominal pain Anxiety Anxiety and depression Arthritis BiPAP (biphasic positive airway pressure) dependence Bladder disease Cardiology follow-up encounter COPD (chronic obstructive pulmonary disease) Depression Diabetes Diarrhea Dietary restriction Elevated CPK Fatty liver Gastric reflux Hemorrhage of gastrointestinal tract History of echocardiogram History of hiatal hernia History of stress test Hypertension Mixed hyperlipidemia YARY treated with BiPAP Osteoarthritis Postoperative anemia Sleep apnea Smoker Type 2 diabetes mellitus Wears dentures Wears partial dentures Home Medications gemfibrozil 600 mg tablet 600 mg PO BID 06/13/14 [History Last Taken 07/19/15 600 MG] trazodone 100 mg tablet 100 mg PO QHS 06/13/14 [History Last Taken 07/19/15 100 MG] alprazolam 0.5 mg tablet 0.5 mg PO QHS ANXIETY 07/30/15 [History Last Taken 2 Weeks Ago ~07/16/15 2 TABS] lisinopril 20 mg tablet 20 mg PO DAILY #30 TABLETS 08/02/15 [Rx Last Taken 07/01/23 05:30] albuterol sulfate 90 mcg/actuation aerosol inhaler (Ventolin HFA) 1 - 2 puff inhalation Q4H PRN PRN Wheezing ##1 08/08/15 [Rx Last Taken Unknown] furosemide 20 mg tablet 20 mg PO DAILY 09/26/15 [History Last Taken Unknown] buspirone 5 mg tablet 7.5 mg PO BID 07/11/18 [History Last Taken 07/01/23 05:30] metformin 500 mg tablet,extended release 24 hr 500 mg PO BID 07/11/18 [History Last Taken Unknown] potassium chloride 10 mEq tablet,extended release(part/cryst) 10 meq PO DAILY 07/11/18 [History Last Taken Unknown] sertraline 100 mg tablet (Zoloft) 200 mg PO QHS 07/11/18 [History Last Taken Unknown] fluticasone furoate 100 mcg-vilanterol 25 mcg/dose inhalation powder 1 ea IH DAILY 07/29/19 [History Last Taken Unknown] ipratropium bromide 0.02 % solution for inhalation 2.5 ml inhalation Q6H PRN shortness of breath or wheezing #75 mL 08/21/21 [Rx Last Taken Unknown] albuterol sulfate 2.5 mg/3 mL (0.083 %) solution for nebulization 2.5 mg inhalation Q4H PRN shortness of breath 11/15/21 [History Last Taken Unknown] atenolol 50 mg tablet 50 mg PO DAILY 11/15/21 [History Last Taken 07/01/23 05:30] cetirizine 10 mg tablet 10 mg PO DAILY PRN ALLERGIES 11/15/21 [History Last Taken Unknown] gabapentin 300 mg capsule (Neurontin) 600 mg PO .COMPLEX 11/15/21 [History Last Taken Unknown] ibuprofen 600 mg tablet 600 mg PO BID 11/15/21 [History Last Taken Unknown] ketoconazole 2 % topical cream 1 applic topical DAILY 11/15/21 [History Last Taken Unknown] fluticasone propionate 50 mcg/actuation nasal spray,suspension (Allergy Relief (fluticasone)) 2 spray intranasal DAILY 01/04/22 [History Last Taken Unknown] glimepiride 4 mg tablet 4 mg PO DAILY PRN glucose >200 01/04/23 [History Last Taken Unknown] ursodiol 300 mg capsule 300 mg PO BID #60 caps 03/26/23 [Rx Last Taken Unknown] vitamin E mixed 400 unit capsule 800 unit (2 x 400 unit) PO DAILY #60 caps 03/26/23 [Rx Last Taken Unknown] hydroxyzine pamoate 25 mg capsule 25 mg PO TID PRN PRN itching #30 CAPSULES 05/30/23 [Rx Last Taken Unknown] pantoprazole 40 mg tablet,delayed release (Protonix) 40 mg PO BID #60 tabs 07/08/23 [Rx Last Taken Unknown] efsauw-lnsyldia-daavuxh 24,000-76,000-120,000 unit capsule,delayed rel (Creon) 1 cap PO TID #90 caps 07/26/23 [Rx Last Taken Unknown] sucralfate 1 gram tablet 1 g PO BID #60 tabs 08/26/23 [Rx Last Taken Unknown] Allergy/AdvReac Type Severity Reaction Status Date / Time Cephalosporins Allergy Intermediate Rash Verified 09/20/23 17:04 hydromorphone [From Dilaudid] Allergy Intermediate Altered Verified 09/20/23 17:04 mental status pseudoephedrine Allergy Intermediate Tachycardia Verified 09/20/23 17:04 fluoxetine [From Prozac] Allergy Chest Verified 09/20/23 17:04 tightness house dust mite Allergy NEEDS Verified 09/20/23 17:04 FOLLOW-UP hydrocodone [From Vicodin] Allergy Upset Verified 09/20/23 17:04 Stomach Penicillins Allergy Hives Verified 09/20/23 17:04 prednisone AdvReac PT UNABLE Verified 09/20/23 17:04 TO RESPOND-NEEDS F/U Family History Mother Glaucoma Cervical cancer Asthma Father , at 77 Myocardial infarction Cancer Lung, metastatic to bone CAD (coronary artery disease) History of coronary artery bypass surgery Aortic aneurysm and dissection Sister Colon polyp Thyroid disorder Lung cancer Surgical History H/O vaginal hysterectomy History of appendectomy History of back surgery History of bladder suspension procedure History of lumbar laminectomy History of total right knee replacement Hx of cholecystectomy Hx of tonsillectomy S/P total knee arthroplasty Tubal ligation status Social History household members: none housing: apartment Smoking Status: Current every day smoker tobacco type: cigarettes alcohol intake: never substance use type: does not use caffeine: Yes Type: carbonated beverages Number of servings: 2 ROS ROS ED ROS Narrative A complete review of systems was performed and is negative except as documented in the history of present illness. Some specific details below. Constitutional: No recent fevers or chills. No rigors. Patient has not generally felt ill. EYE: No discharge, visual complaints, or pain. No pain with looking left right upper down. ENT: No difficulty swallowing. No swelling. No sinus pressure or pain. No nasal discharge. No change in hearing. No ear pain. She has a tender area on the side of her head. CV: No chest pain, pressure or aching. No palpitations or irregular beats. Patient has not been presyncopal or syncopal. Respiratory: No trouble breathing. No cough. No wheezing. No sputum production. No pain with breathing. GI: No abdominal pain. No nausea vomiting at any time and no diarrhea. No blood in stool. : No frequency dysuria or hematuria. No difficulty starting or stopping Musculoskeletal: No recent trauma. No pains. No swelling. Skin: No rash. No diaphoresis. Neuro: No weakness or numbness. No difficulty with speaking. No difficulty understanding speech. No visual loss. Endocrine: No polyuria or polydipsia. EXAM Physical Exam Narrative Exam Narrative: CONSTITUTIONAL: Patient is nontoxic in appearance. The patient looks comfortable. She gives a clear consistent history. HEENT: No notable trauma. Mucous membranes moist. No sinus tenderness. Tympanic membranes are normal. No temporal artery tenderness. She does have an area more in superior and anterior to the temporal artery where there is a little tenderness. This seems to reproduce a lot of her symptoms. But there are no skin changes there. There is no lymph node. There is no sign of any abnormality visually. I do not feel any lumps or bumps. No facial rashes or swelling. She has no drainage from the nose. EYES: No conjunctival injection. No proptosis. No pain with range of motion. Funduscopic exam shows no marked abnormalities. No pain with range of motion NECK: No meningismus. No JVD. Range of motion is normal looking up down left and right without discomfort. CARDIOVASCULAR: Regular rate. Regular rhythm. No notable murmur. No JVD. RESPIRATORY: No respiratory distress. Breathing is unlabored. No wheezes. No rhonchi. No rales. No pain with a deep breath. GASTROINTESTINAL: Not distended. Bowel sounds are normal. No tenderness. No guarding. No rebound. No palpable mass. No bruit. GENITOURINARY: No tenderness over the bladder. No CVA tenderness. MUSCULOSKELETAL: Atraumatic. No peripheral edema. No cord. No tenderness along the deep venous system. No asymmetry. NEUROLOGICAL: Patient is alert and oriented. No focal deficit noted. NIH stroke scale is 0. SKIN: No noted rashes. No diaphoresis. No vesicles noted. PSYCHIATRIC: Patient is calm. Mood is appropriate. Const Vital Signs: 09/20/23 17:05 09/20/23 17:08 Temperature 96.9 F L 96.9 F L Temperature Source Temporal Temporal Pulse Rate 87 87 Respiratory Rate 16 16 Blood Pressure 178/104 H 178/104 H Blood Pressure Mean 128 128 Pulse Ox 96 96 Oxygen Delivery Method Room Air Room Air MDM MDM MDM Narrative Medical decision making narrative: My independent interpretation of the patient's CT of the head shows no acute process and final reading is similar. Radiology also read CTA and sinus films. No angiographic abnormality. Sinuses some mild mucosal thickening. Patient CBC is normal. Patient's metabolic panel is normal. Patient's glucose is minimally up at 163. Patient's ESR is normal at 8. I think patient's exam history and negative/low ESR effectively rule out significant temporal arteritis. I do not think patient needs a lumbar puncture. She is happy that everything is negative. She is comfortable managing her headache at home. She was more getting worried that it was something more serious. Lab Data Attestation: I reviewed the patient's lab results. Labs: Laboratory Results - last 24 hr 09/20/23 17:50 WBC 9.6 RBC 5.24 Hgb 14.9 Hct 43.7 MCV 83.4 MCH 28.4 MCHC 34.1 RDW Std Deviation 42.4 RDW Coeff of Rodrigo 14.0 Plt Count 312 MPV 9.7 Immature Gran % (Auto) 0.400 Neut % (Auto) 54.3 Lymph % (Auto) 36.5 Dane % (Auto) 5.8 Eos % (Auto) 2.4 Baso % (Auto) 0.6 Absolute Neuts (auto) 5.2 Absolute Lymphs (auto) 3.50 Nucleated RBC % 0 ESR 8 Sodium 140 Potassium 3.6 Chloride 105 Carbon Dioxide 28.0 Anion Gap 7 BUN 11 Creatinine 0.56 Estim Creat Clear Calc 117.10 Est GFR (MDRD) Af Amer 139 Est GFR (MDRD) Non-Af 115 BUN/Creatinine Ratio 19.5 Glucose 163 H Calcium 9.1 Radiography Diagnostic Testing: Clinical Impression(s) from Imaging Studies Facial/Sinus 09/20/23 18:35 IMPRESSION: Minimal mucosal thickening in the ethmoid sinuses No fracture or suspicious osseous lesion Electronically Signed: Johnny Saucedo MD at 18:58 EST , Head CTA 09/20/23 18:35 IMPRESSION: Age consistent changes, no acute findings, no suspicious enhancing lesion Electronically Signed: Johnny Saucedo MD at 18:59 EST , Discharge Plan Triage Chief Complaint: Headache ED Provider: Jono Castro Dx/Rx/DC Orders Clinical Impression: Headache Instructions: ED Headache Unspecified Prescriptions: No Action fluticasone propionate [Allergy Relief (fluticasone)] 50 mcg/actuation spray,suspension 2 spray intranasal DAILY Rx Instructions: administer into each nostril albuterol sulfate 2.5 mg /3 mL (0.083 %) solution for nebulization 2.5 mg inhalation Q4H PRN (Reason: shortness of breath) ketoconazole 2 % cream 1 applic topical DAILY ibuprofen 600 mg tablet 600 mg PO BID cetirizine 10 mg tablet 10 mg PO DAILY PRN (Reason: ALLERGIES) atenolol 50 mg tablet 50 mg PO DAILY glimepiride 4 mg tablet 4 mg PO DAILY PRN (Reason: glucose >200) sucralfate 1 gram tablet 1 g PO BID Qty: 60 0RF trazodone 100 MG tablet 100 mg PO QHS Patient Comments: Mood/anti-anxiety gemfibrozil 600 MG tablet 600 mg PO BID Patient Comments: Cholesterol alprazolam 0.5 MG tablet 0.5 mg PO QHS Patient Comments: anti-anxiety TAKES 2 TABS OF 0.5MG @ HS lisinopril 20 MG tablet 20 mg PO DAILY Qty: 30 0RF albuterol sulfate [Ventolin HFA] 1 INHALER inhaler 1 - 2 puff inhalation Q4H PRN PRN (Reason: Wheezing) Qty: 1 0RF furosemide 20 MG tablet 20 mg PO DAILY Patient Comments: buspirone 5 MG tablet 7.5 mg PO BID Patient Comments: anti-anxiety sertraline [Zoloft] 100 MG tablet 200 mg PO QHS metformin 500 MG tablet 500 mg PO BID potassium chloride 10 MEQ tablet 10 meq PO DAILY gabapentin [Neurontin] 300 mg capsule 600 mg PO .COMPLEX Rx Instructions: 600 mg PO take 2 caps in the am and 3 caps in the evening; fluticasone furoate-vilanterol 1 EACH blister with device 1 ea IH DAILY ipratropium bromide 0.02 % solution 2.5 ml inhalation Q6H PRN (Reason: shortness of breath or wheezing) Qty: 75 2RF hydroxyzine pamoate [hydroxyzine pamoate] 25 mg capsule 25 mg PO TID PRN PRN (Reason: itching) Qty: 30 0RF ursodiol 300 mg capsule 300 mg PO BID Qty: 60 11RF vitamin E mixed 400 unit capsule 800 unit PO DAILY Qty: 60 11RF pantoprazole [Protonix] 40 mg tablet,delayed release (DR/EC) 40 mg PO BID Qty: 60 2RF Creon 24,000-76,000 -120,000 unit capsule,delayed release(DR/EC) 1 cap PO TID Qty: 90 11RF Rx Instructions: administer with meals and/or snacks Primary Care Provider: Susanna Monroe Referrals: Susanna Monroe MD [Primary Care Provider] - 1 Week if not improving Disposition Disposition: Home, Self Care
[2023-09-20 18:21] LABS: Erythrocyte Sedimentation Rate 8 mm/hr (0-30)
[2023-09-20 18:22] LABS: Anion Gap 7 (5-15); BUN 11 mg/dL (7-18); BUN/Creat Ratio 19.5 RATIO (10-20); Calcium,Total 9.1 mg/dL (8.5-10.1); Chloride 105 mmol/L (98-107); Creatinine, Serum 0.56 mg/dL (0.55-1.02); EST Glomerular Filtration Rate 115 mL/min (>60); Est Glom Filt Rate - Afr Amer 139 mL/min (>60); Glucose 163 mg/dL (74-106); Potassium 3.6 mmol/L (3.5-5.1); Sodium Level 140 mmol/L (136-145)
[2023-09-20 18:23] LABS: Absolute Neutrophil Count 5.2 X10^3/uL (2.0-7.7); Basophil# 0.06 X10^3/uL; Basophil% 0.6 % (0-1); Eosinophil# 0.23 X10^3/uL; Eosinophils% 2.4 % (0-5); Hematocrit 43.7 % (37-47); Hemoglobin 14.9 g/dL (12.0-15.0); Lymphocyte % 36.5 % (19-41); Mean Corp Hgb Conc 34.1 g/dL (32-36); Mean Corpuscular Hgb 28.4 pg (27.0-32.0); Mean Corpuscular Volume 83.4 fL (81-99); Mean Platelet Vol. 9.7 fl (6.2-12.0); Monocyte# 0.56 X10^3/uL; Monocyte% 5.8 % (0-10); NRBC Flagged by Analyzer 0 % (0-5); Neutrophil # 5.19 X10^3/uL (2.7-7.7); Neutrophil % 54.3 % (47-70); Platelet Count 312 K/mm3 (150-450); RBC Distribution Width SD 42.4 fl (35.1-43.9); Red Blood Count 5.24 M/mm3 (4.2-5.4); White Blood Count 9.6 K/mm3 (4.4-11.0)
--- NOTE | 2023-09-20 18:35 | CT_ITS ---
STUDY: CT BRAIN WITH AND WITHOUT CONTRAST REASON FOR EXAM: Female, 63 years old. headache RADIATION DOSAGE (If Supplied By Facility): CTDIvol = ( 25.90 ) mGy, DLP = ( 1273.60 ) mGycm TECHNIQUE: Transaxial CT imaging of the brain was performed pre and post contrast administration. The examination was performed with intravenous administration of 100ML ISOVUE 370. Individualized dose optimization techniques were used for this CT. COMPARISON: None. FINDINGS: Normal soft tissue structures. Normal calvarium. Normal size ventricles and extra-axial spaces for the patient''s age. Normal white matter tracts of the cerebral hemispheres. Normal basal ganglia and thalami. Normal brainstem. Normal cerebellum. There is no intracranial hemorrhage. There are no findings of an acute ischemic infarction. No suspicious enhancing lesion Normal visualized paranasal sinuses. CT/CTA Head W/WO Contrast IMPRESSION: Age consistent changes, no acute findings, no suspicious enhancing lesion Electronically Signed: Johnny Saucedo MD at 18:59 EST ,
--- NOTE | 2023-09-20 18:35 | CT_ITS ---
STUDY: CT MAXILLOFACIAL SINUSES REASON FOR EXAM: Female, 63 years old. sinus pressure RADIATION DOSAGE (If Supplied By Facility): CTDIvol = ( 29.38 ) mGy, DLP = ( 606.22 ) mGycm TECHNIQUE: The patient was scanned in a multi detector CT scanner. High resolution axial imaging was performed without the administration of intravenous contrast material. Sagittal and coronal images were reconstructed. Individualized dose optimization techniques were used for this CT. COMPARISON: None. FINDINGS: FRONTAL SINUSES: Normal aeration, without mucosal inflammatory disease. ETHMOIDAL SINUSES: Normal aeration, with minimal mucosal inflammatory disease. MAXILLARY SINUSES: Normal aeration, without mucosal inflammatory disease. SPHENOIDAL SINUSES: Normal aeration, without mucosal inflammatory disease. There is patency of the bilateral maxillary infundibuli with normal uncinate processes, ethmoid bullae, and hiatus semilunaris. Normal bilateral middle turbinates. Normal bilateral inferior turbinates. Normal midline nasal septum. There is patency of the bilateral nasal airways. The visualized osseous structures are normal. The visualized bilateral orbital contents are normal. CT/Sinus/Facial Bone IMPRESSION: Minimal mucosal thickening in the ethmoid sinuses No fracture or suspicious osseous lesion Electronically Signed: Johnny Saucedo MD at 18:58 EST ,
[2023-09-20 19:53] VITALS: BP 162/74; PULSE 81; RESP 16; O2SAT 97
== END 2023-09-20 19:57 | disposition home or self-care (01) ==
PROVIDERS: Emergency Provider Emergency Medicine; PCP Internal Medicine; Visit Provider Emergency Medicine
DX: R51.9 Headache, unspecified (principal); J44.9 Chronic obstructive pulmonary disease, unspecified; E11.9 Type 2 diabetes mellitus without complications; K76.0 Fatty (change of) liver, not elsewhere classified; G47.33 Obstructive sleep apnea (adult) (pediatric); F17.210 Nicotine dependence, cigarettes, uncomplicated
CPT/HCPCS: 70486; 70496; 80048; 85025; 85652; 99282; Q9967; A4216

== ENCOUNTER → 2023-10-22 | Outpatient (CLI) | payer MEDICARE, MEDICAID, SELFPAY ==
--- NOTE | 2023-10-22 09:28 | US_ITS ---
STUDY: ABDOMINAL ULTRASOUND - RIGHT UPPER QUADRANT; ELASTOGRAPHY REASON FOR VISIT: Female, 63 years old. Fatty infiltration of the liver. TECHNIQUE: Ultrasound evaluation of the right upper quadrant was performed with real-time and static lema-scale imaging. Point quantification shear wave elastography was performed ([employer]). TECHNICAL QUALITY: Adequate. COMPARISON: Comparison is made with prior study April 09, 2023. FINDINGS: Liver: The liver is enlarged and measures 22.3 cm. There is increased echogenicity consistent with fatty infiltration. The bile ducts are within normal limits. There is hepatic color flow. The direction of portal flow is hepatopetal. There is no demonstrated mass lesion. Median liver stiffness measured 8 kPa. Gallbladder: The patient is status post cholecystectomy. Common Bile Duct (C.B.D.): The common bile duct measures 7 mm. Pancreas: There is normal echogenicity of the visualized pancreas. There is no demonstrated pancreatic mass or cyst. Right Kidney: Normal size of the right kidney. The right kidney measures 14.8 cm x 5.8 cm x 4.5 cm. Normal renal cortex. The right cortex measures 1.8 cm. There is no demonstrated renal mass or cyst. There is no right hydronephrosis. US/ABD Limited w/ Elastography IMPRESSION: 1. Liver stiffness measures 8 kPa compatible with F2-F3 (Mild to moderate liver fibrosis) Metavir score. Electronically Signed: Fili Sagastume MD at 14:28 EST ,
--- NOTE | 2023-10-22 09:28 | NM_ITS ---
CLINICAL: 63-year-old female with history of clinical gastroparesis. SEMI-SOLID PHASE 99m Tc SULFUR COLLOID GASTRIC EMPTYING STUDY COMPARISON: Previous semisolid phase gastric emptying study dated 12/26/2021 FINDINGS: The patient was administered 1.0 mCi of 99m Tc sulfur colloid mixed with oatmeal and consumed per os. Image acquisitions in the anterior-posterior projections were obtained for 60 minutes. There is prompt visualization of the stomach. There is no gastroesophageal reflux identified. The T ? linear fit was calculated to be 24.12 minutes, (Normal: 12-56 minutes) compared to 29.80 demonstrated on the examination dated 12/26/2021. NM/Gastric Emptying Study IMPRESSION: 1. NORMAL 99m Tc sulfur colloid semi-solid phase (oatmeal) gastric emptying imaging examination. A. There is normal and preserved semi-solid phase gastric emptying compared to normal controls. (Ele et al, J Nucl Med Tech 38: 186, 2010). B. Overall compared to the previous examination dated 12/26/2021, there is minimal interval change. Electronically Signed: Apollo Kraft DO at 9:43 EST ,
== END | disposition home or self-care (01) ==
PROVIDERS: PCP Internal Medicine; Referring Provider Internal Medicine Gastroenterology; Visit Provider Internal Medicine Gastroenterology
DX: E11.9 Type 2 diabetes mellitus without complications (principal); R14.0 Abdominal distension (gaseous); K64.9 Unspecified hemorrhoids
CPT/HCPCS: 76705; 76981; 78264; A9541

== ENCOUNTER 2023-11-28 07:50 | Day surgery (SDC) | payer MEDICARE, MEDICAID, SELFPAY ==
[2023-11-28] MEDS: Lactated Ringers 1,000 ML 15 ML IV (08:29)
[2023-11-28 08:31] VITALS: BP 99/59; PULSE 86; RESP 18; TEMP 35.8; O2SAT 98; BMI 31.4
[2023-11-28 08:57] LABS: Bedside Glucose 210 mg/dL (74-106)
--- NOTE | 2023-11-28 09:00 | COLBX_PTH ---
PATIENT: GARLAND PARIKH LOC: EN U#:[id number] AGE/SX: 63/F ROOM: RE11/28/[address]: Dr. Uriel Caceres DO : 1960 BED: DIS: 11/28/2023 SPEC #: [id number] RECD: 11/28/23 13:28 STATUS: ANNIE SHAWNA #: [id number] ZACH: 11/28/23 09:[address]: Uriel Caceres DEPT: SURGICAL PATHOLOGY RECD BY: Brittny Alcala ENTERED: 11/28/23 13:47 SP TYPE: COLON BX OTHR DR: Dr. Susanna Monroe MD Tissues: A - Rectum, NOS B - COLON BIOPSY C - Ileum, NOS D - Cecum, NOS E - COLON BIOPSY F - Transverse colon G - Sigmoid colon biopsy Procedures: Surgery Specimen Level IV HEADER OPERATION: Colonoscopy, biopsy, polypectomy, hemorrhoidal banding PRE-OP DIAGNOSIS: Diarrhea, Abdominal pain, Bloating, Hemorrhoid, Heartburn, Gastroparesis, Nonalcoholic fatty liver disease TISSUE SUBMITTED: A- Rectum polyp biopsy, B- Hepatic flexure polyp biopsy, C- Terminal Ileum biopsy, D- Ileocecal valve, E- Random colon biopsy, F- Transverse Colon polyps, G- Sigmoid polyp MICROSCOPIC DIAGNOSIS A. Rectum polyp, biopsy; Hyperplastic polyp B. Hepatic flexure polyp, biopsy; Tubular adenoma C. Terminal Ileum, biopsy; Fragments of small intestinal mucosa, no pathologic diagnosis. D. Ileocecal valve; Fragments of small intestinal mucosa, no pathologic diagnosis. A fragment of colonic mucosa with focal mild acute inflammation. See comment. E. Random colon, biopsy; Fragments of colonic mucosa, no pathologic diagnosis. F. Transverse colon polyp, biopsy; Fragments of tubular adenoma. G. Sigmoid polyp, biopsy; Tubular adenoma. Fragments of hyperplastic polyp with cautery artifacts. DARI/ 11/29/2023 COMMENT C. Cryptitis, crypt abscesses, glandular distortion or granulomas are not seen. Correlation with clinical, endoscopic findings and appropriate follow up are necessary. MICROSCOPIC DESCRIPTION Slides are reviewed. GROSS DESCRIPTION A. Received in fixative is one container labeled with the patient's name and designated Rectum polyp biopsy. The specimen consists of one irregular fragment of light todd soft tissue that measures 0.3 x 0.3 x 0.1 cm. The specimen is totally submitted in one cassette. B. Received in fixative is one container labeled with the patient's name and designated Hepatic flexure polyp biopsy. The specimen consists of two irregular fragments of light todd soft tissue that in aggregate measure 0.5 x 0.3 x 0.1 cm. The specimen is totally submitted in one cassette. C. Received in fixative is one container labeled with the patient's name and designated Terminal Ileum biopsy. The specimen consists of multiple irregular fragments of light todd soft tissue that in aggregate measure 1.0 x 0.3 x 0.1 cm. The specimen is totally submitted in one cassette. D. Received in fixative is one container labeled with the patient's name and designated Ileocecal valve. The specimen consists of multiple irregular fragments of light todd soft tissue that in aggregate measure 1.0 x 0.4 x 0.1 cm. The specimen is totally submitted in one cassette. E. Received in fixative is one container labeled with the patient's name and designated Random colon biopsy. The specimen consists of multiple irregular fragments of light todd soft tissue that in aggregate measure 1.2 x 0.3 x 0.1 cm. The specimen is totally submitted in one cassette. F. Received in fixative is one container labeled with the patient's name and designated Transverse colon polyp. The specimen consists of multiple irregular fragments of light todd soft tissue that in aggregate measure 2.0 x 0.5 x 0.1 cm. The specimen is totally submitted in one cassette. G. Received in fixative is one container labeled with the patient's name and designated Sigmoid polyp. The specimen consists of multiple irregular fragments of light todd soft tissue that in aggregate measure 1.2 x 0.5 x 0.3 cm. The specimen is totally submitted in one cassette. DARI/ 11/28/23 TC:1 CPT: 31968w9
--- NOTE | 2023-11-28 09:24 | HP.PCM_ITS ---
History and Physical Date of Admission: 11/28/23 GARLAND PARIKH, is a 63 F who presents to the office today for Prior workup: ? Stool H.Pylori, C.diff, lactoferrin, EP WNL. *BGI established 12.14.21 with postprandial abdominal bloating and diarrhea 15+/day with periodic incontinence ? Biochemical CBC, ESR, CMP, CRP, LDH, TSH, JOSE F comp, gastrin, celiac without pertinent abnormality ? Stool O/P, giardia ? CT abd/pel 12.22.21 hepatic steatosis ? Gastric emptying study 12.26.21WNL ? US RUQ and Elastography 01.09.22 hepatic measurement 13.9cm with fatty infiltration stiffness 7kPa OV 01.15.22 symptoms improved with use of Creon; metformin cessation did not change symptoms. ? Biochemical ferritin, ceruloplasmin, haptoglobin, AMA, ASM, SILAS, AFP, ACNA, ammonia, hepatitis, HIV without pertinent abnormality. ? Copper H160, LDL H57, triglycerides H285, CPK H382, A1c H7.1 Contact she transferred care to another GI who d/c?d ursodiol. ? EGD and colonoscopy 02.22.22 [facility] EGD gastritis; small hiatal hernia; irregular GE junction. ? Colonoscopy single 1cm sessile polyp. OV 01.04. with nausea, bloating, heartburn and diarrhea 10-12/day since Fall 2020. [place] is primary food as other foods worsen symptoms. Previously prescribed Creon helpful. Zenpep samples. ? Biochemical ESR, CRP, lipase, IgG subclasses without pertinent abnormality. ? CRP H3.34, lipase H130, CA 19-9 H44 ? Stool calprotectin, lactoferrin C.Difficile, EP WNL ? MRCP 02.12.23 hepatomegaly 21.3cm; s/p cholecystectomy OV 03.21.23 with ongoing loose stool bloating, abdominal and rectal pain ? SITZ 03.25.23 no rings seen on first Xray. Contact 03.26.23 with education regarding fatty liver disease. Restart ursodiol and vit E. ? Biochemical ESR, CRP WNL? CA 19-9 H41 ? Capsule endoscopy 03.27.23 gastritis and duodenitis concern; PPI and carafate Contact 04.09.23 with capsule results. Start sucralfate and PPI US and elastography 04.09.23 hepatic measurement 21.3cm with fatty infiltration, stiffness 7.4kPa; s/p cholecystectomy. Contact 04.15.23 with US/elastography results. Contact 05.22.23 concern for upper abdominal bloating with discomfort/bloating. Willing to try using Creon again; get blood/stool testing ? Biochemical RAST Class I egg white, peanut and milk. ? Stool elastase L145 ? EGD 07.01.23 irregular Zline 35; gastritis; few localized 2mm erosions; duodenitis. Metaplasia, H.pylori neg OV 08.26.23 continues to have postprandial bloating, loose stools that are not as severe and intermittent tenesmus; concern for hemorrhoid that is bleeding and a perianal sore knot. Diet has been changed to eliminate white flour, white mills gar, egg and peanut. Did not attempt to eliminate dairy but has reduced this. ROS Const Constitutional: Positive for fatigue, headache(s) and weakness; No fever(s), frequent falls or weight change ENT ENT: Positive for headache(s); No difficulty swallowing Cardio Cardiology: Positive for leg pain with exertion Gastro GI: Positive for abdominal pain, bloating, change in bowel habits, diarrhea, heartburn, nausea/dyspepsia and vomiting; No constipation, difficulty swallowing, Vomiting blood/hematemesis or Blood in stool Musc Musculoskeletal: Positive for abnormal gait, joint pain, back pain, muscle weakness, stiffness, Arthritis and leg pain with exertion; No joint swelling, muscle cramps, numbness, tingling, sciatica or leg pain at night Skin Skin: No dry skin, lesions, itchy eyes or rash Neuro Neurology: Positive for abnormal gait, weakness and headache(s); No dizziness, frequent falls, numbness, tingling, tremor(s), Increased tone in limbs, paralysis or seizures Psych Psychiatric: Positive for anxiety, Positive for depression, No paranoia, No Behavioral Problems, No Compulsive Behavior, No hyperactivity, No inattentiveness, No obsessions/compulsions, No Temper Tantrums and No suicidal ideation Endo Endocrine: Positive for fatigue; No weight change Aller/Imm Allergy/Immunologic: No itchy eyes Tolu/Lymp Hematologic/Lymphatic: No easy bleeding or easy bruising Exam Const General: cooperative Nutritional Appearance: obese Orientation: alert, awake and oriented x3 Eyes Sclera: sclerae normal GI Inspection: obesity Palpation: soft, hepatosplenomegaly present, no masses and tender in the RUQ Skin General: no jaundice Neuro Speech: speech normal Gait: normal gait Psych Mood: congruent mood Quality Reporting Tobacco Screening ([facility]) Smoking Status: Current every day smoker Assessment and Plan Assessment and Plan (1) Diarrhea: Status: Chronic Qualifiers: Diarrhea type: functional diarrhea Qualified Code(s): K59.1 - Functional diarrhea Plan: 62 yr old female with chronic postprandial upper abd pain and bloating, diarrhea, heartburn. Will eval pancreas with blood and stool tests. She did feel better last year on PERT (Creon). Also stool tests for inflammation and infection. Samples provided of Zenpep, 1-2 caps with snack, 2-3 caps with meal. Will contact her with results and plan. Will get results from her EGD and colonoscopy at [facility] in 02/2022. f/u next available. (2) Abdominal pain: Status: Chronic Qualifiers: Abdominal location: generalized Qualified Code(s): R10.84 - Generalized abdominal pain Plan: We will give her a sits marker did perform a sits marker test along with a capsule endoscopy to evaluate her bloating. (3) Bloating: Status: Chronic Plan: Likely secondary to bacterial overgrowth we will give her antibiotic for approximately 2 weeks. (4) Hemorrhoid: Status: Chronic Qualifiers: Hemorrhoid type: second degree Qualified Code(s): K64.1 - Second degree hemorrhoids Plan: She will undergo colonoscopy with evaluation of her lower GI tract. She will also need banding endoscopically and possibly Botox therapy. (5) Heartburn: Status: Chronic Plan: Consider PPI (6) Gastroparesis: Status: Acute Plan: Gastroparesis of unknown cause at this time poss sec to medication aside. We repeat her gastric emptying study. (7) Nonalcoholic fatty liver disease: Status: Acute Plan: Her last FibroScan had shown that her liver was 7.4 kPa. Her liver span was approximately 20 cm. She is on ursodiol 250 mg twice daily and she is on vitamin E 800 international units a day. We will repeat LFTs and repeat ultr asound and FibroScan. We will discussed weight loss and other methods for reduction of fat in the liver. Orders: Orders Gastric Emptying Study Today E11.9 - Type 2 diabetes mellitus without complications, K64.9 - Unspecified hemorrhoids, R14.0 - Abdominal distension (gaseous) ABD Limited w/ Elastography Today K64.9 - Unspecified hemorrhoids, R14.0 - Abdominal distension (gaseous) Colonoscopy Today K64.9 - Unspecified hemorrhoids Medications: New sucralfate 1 g PO BID 60 tabs 0RF I have examined the patient and the H&P has been reviewed. There are no clinical changes since date of exam.
[2023-11-28 10:20] VITALS: BP 168/135; BP 99/59; PULSE 77; RESP 18; TEMP 36.4; O2SAT 98
[2023-11-28 10:25] VITALS: BP 125/55; BP 99/59; PULSE 76; RESP 16; O2SAT 92
--- NOTE | 2023-11-28 10:26 | OP.CCLET_ITS ---
11/28/2023 Susanna Monroe [address] [place] [address] Re : Colonoscopy procedure for Ibis De Santiago Dear Dr. Monroe This procedure was performed on November. My impressions and recommendations are as follows: Impressions : - Hemorrhoids found on perianal exam. - Bleeding external and internal hemorrhoids. Banded. - Nine 1 to 2 mm polyps in the sigmoid colon, in the transverse colon, at the hepatic flexure and in the ascending colon, removed with a hot snare. Resected and retrieved. - Two 4 mm polyps in the sigmoid colon and in the transverse colon, removed with a cold snare. Resected and retrieved. - Congested mucosa in the entire examined colon. Biopsied. - Mild inflammation was found in the ileum secondary to ileitis. Biopsied. Recommendations : - Discharge patient to home. - Resume previous diet today. - Continue present medications. - Await pathology results. - Repeat colonoscopy in 1 year for surveillance. -Completely avoid cows milk, eggs, and products that contain peanuts. My findings are described in the full procedure note, which is enclosed. If I can be of further assistance, please feel free to contact me at . Sincerely, Uriel Caceres, 11/28/2023 10:26:16 AM This report has been signed electronically.
--- NOTE | 2023-11-28 10:26 | OP.COLON_ITS ---
Patient Name: Ibis De Santiago Procedure Date: 11/28/2023 9:27 AM Date of : 1960 Age: 63 Procedure: Colonoscopy Indications: Clinically significant diarrhea of unexplained origin, Hematochezia Providers: Uriel Caceres DO Medicines: Monitored Anesthesia Care Patient Profile: This is a 63 year old female. Refer to note in patient chart for documentation of history and physical. Last Colonoscopy: within the past 3 years. Complications: No immediate complications. Procedure: Pre-Anesthesia Assessment: - Prior to the procedure, a History and Physical was performed, and patient medications and allergies were reviewed. The patient is competent. The risks and benefits of the procedure and the sedation options and risks were discussed with the patient. All questions were answered and informed consent was obtained. Patient identification and proposed procedure were verified by the physician in the pre-procedure area. Mental Status Examination: alert and oriented. Airway Examination: normal oropharyngeal airway and neck mobility. Respiratory Examination: clear to auscultation. CV Examination: normal. Prophylactic Antibiotics: The patient does not require prophylactic antibiotics. Prior Anticoagulants: The patient has taken no anticoagulant or antiplatelet agents. ASA Grade Assessment: II - A patient with mild systemic disease. After reviewing the risks and benefits, the patient was deemed in satisfactory condition to undergo the procedure. The anesthesia plan was to use monitored anesthesia care (MAC). Immediately prior to administration of medications, the patient was re-assessed for adequacy to receive sedatives. The heart rate, respiratory rate, oxygen saturations, blood pressure, adequacy of pulmonary ventilation, and response to care were monitored throughout the procedure. The physical status of the patient was re-assessed after the procedure. After I obtained informed consent, the scope was passed under direct vision. Throughout the procedure, the patient's blood pressure, pulse, and oxygen saturations were monitored continuously. The Colonoscope was introduced through the anus and advanced to the terminal ileum. The colonoscopy was performed without difficulty. The patient tolerated the procedure well. The quality of the bowel preparation was adequate. The terminal ileum, ileocecal valve, appendiceal orifice, and rectum were photographed. Scope In: 9:40:03 AM Scope Withdrawal Time 0 hours 27 minutes 17 seconds Scope Out: 10:13:41 AM Total Procedure Duration Time 0 hours 33 minutes 38 seconds Findings: Hemorrhoids were found on perianal exam. Bleeding external and internal hemorrhoids were found during retroflexion, during perianal exam, during digital exam and during anoscopy. The hemorrhoids were moderate, medium-sized and Grade II (internal hemorrhoids that prolapse but reduce spontaneously). A hemorrhoid was isolated with anoscopy. The ShortShot ligator was positioned over the hemorrhoid at the left lateral position. Suction was applied and one rubber band was placed over the hemorrhoid. This was checked to make certain that the muscularis was free of the band. Post-banding digital rectal exam showed band in good position. The patient appeared stable and comfortable at the end of the procedure. Nine sessile polyps were found in the sigmoid colon, transverse colon, hepatic flexure and ascending colon. The polyps were 1 to 2 mm in size. These polyps were removed with a hot snare. Resection and retrieval were complete. Verification of patient identification for the specimen was done. Estimated blood loss was minimal. Two flat and sessile polyps were found in the sigmoid colon and transverse colon. The polyps were 4 mm in size. These polyps were removed with a cold snare. Resection and retrieval were complete. Verification of patient identification for the specimen was done. An area of moderately congested mucosa was found in the entire colon. Biopsies were taken with a cold forceps for histology. Verification of patient identification for the specimen was done. Estimated blood loss was minimal. Patchy mild inflammation characterized by erythema, friability and granularity was found in the terminal ileum. Biopsies were taken with a cold forceps for histology. Verification of patient identification for the specimen was done. Estimated blood loss was minimal. Impression: - Hemorrhoids found on perianal exam. - Bleeding external and internal hemorrhoids. Banded. - Nine 1 to 2 mm polyps in the sigmoid colon, in the transverse colon, at the hepatic flexure and in the ascending colon, removed with a hot snare. Resected and retrieved. - Two 4 mm polyps in the sigmoid colon and in the transverse colon, removed with a cold snare. Resected and retrieved. - Congested mucosa in the entire examined colon. Biopsied. - Mild inflammation was found in the ileum secondary to ileitis. Biopsied. Recommendation: - Discharge patient to home. - Resume previous diet today. - Continue present medications. - Await pathology results. - Repeat colonoscopy in 1 year for surveillance. -Completely avoid cows milk, eggs, and products that contain peanuts. Procedure Code(s): --- Professional --- 77127, Colonoscopy, flexible; with removal of tumor(s), polyp(s), or other lesion(s) by snare technique 97845, Colonoscopy, flexible; with band ligation(s) (eg, hemorrhoids) 45623, 59, Colonoscopy, flexible; with biopsy, single or multiple CPT copyright 2021 [employer]. All rights reserved. The codes documented in this report are preliminary and upon boat rental clerk review may be revised to meet current compliance requirements. Uriel Caceres DO 11/28/2023 10:26:16 AM This report has been signed electronically. Number of Addenda: 0 Note Initiated On: 11/28/2023 9:27 AM
[2023-11-28 10:30] VITALS: BP 90/48; BP 99/59; PULSE 76; RESP 16; O2SAT 93
[2023-11-28 10:35] VITALS: BP 86/57; BP 99/59; PULSE 77; RESP 16; TEMP 36.6; O2SAT 95
[2023-11-28 11:09] VITALS: BP 99/59
== END 2023-11-28 11:10 | disposition home or self-care (01) ==
LOC: EN 07:51 → AC 07:53
PROVIDERS: PCP Internal Medicine; Referring Provider Internal Medicine; Visit Provider Internal Medicine Gastroenterology
PROC: 0DJD8ZZ Inspection of Lower Intestinal Tract, Via Natural or Artificial Opening Endoscopic (ICD-10-PCS; CPT 45378; principal; 2023-11-28 08:55)
DX: D12.3 Benign neoplasm of transverse colon (principal); J44.9 Chronic obstructive pulmonary disease, unspecified; D12.5 Benign neoplasm of sigmoid colon; K64.1 Second degree hemorrhoids; K64.4 Residual hemorrhoidal skin tags; K62.1 Rectal polyp; E66.9 Obesity, unspecified; F17.200 Nicotine dependence, unspecified, uncomplicated; G47.33 Obstructive sleep apnea (adult) (pediatric); Z79.51 Long term (current) use of inhaled steroids; Z79.899 Other long term (current) drug therapy; Z79.84 Long term (current) use of oral hypoglycemic drugs
CPT/HCPCS: 45385; 45398; 45380; 82962; 88305; J7120; J2405

== ENCOUNTER → 2024-01-20 | Outpatient (CLI) | payer MEDICARE, MEDICAID, SELFPAY ==
--- NOTE | 2024-01-20 06:46 | ECHOD_ITS ---
Reason For Study: Chest Pain Procedure This was a 2D Doppler, Color Flow transthoracic echocardiogram. Exam performed in department. Left Ventricle Normal LV size. Mild concentric left ventricular hypertrophy. Left ventricular systolic function is normal. The estimated ejection fraction is 60 %. Normal diastology for age. No regional wall motion abnormalities noted. Right Ventricle Normal RV size. Normal systolic function. Atria The left and right atria are normal. Mitral Valve The mitral valve is structurally normal. No prolapse or stenosis seen. Tricuspid Valve Normal tricuspid valve. Trivial tricuspid valve insufficiency. Unable to estimate RV systolic pressure due to insufficient tricuspid regurgitant envelope. Aortic Valve Trisinus/trileaflet aortic valve. Pulmonic Valve Normal pulmonic valve. Trivial pulmonic valve insufficiency. Great Vessels Normal aortic root. Pericardium/Pleural No pericardial effusion. MMode/2D Measurements & Calculations LVIDd: 5.0 cm IVSd: 1.1 cm Ao root diam: 3.4 cm LVIDs: 3.0 cm LVPWd: 1.1 cm LA dimension: 4.0 cm RVDd: 3.4 cm FS: 39.9 % LAV(MOD-bp): 54.3 ml LVAd ap4: 26.9 cm2 SV(MOD-sp4): 54.2 ml LAV(MOD-bp) Indexed: 27.2 ml/m2 LVLd ap4: 7.1 cm LAV(MOD-sp2): 59.1 ml EDV(MOD-sp4): 84.1 ml LAV(MOD-sp4): 48.8 ml EDV(sp4-el): 87.1 ml LVAs ap4: 14.4 cm2 LVLs ap4: 6.1 cm ESV(MOD-sp4): 29.8 ml ESV(sp4-el): 28.8 ml EF(MOD-sp4): 64.5 % EF(sp4-el): 66.9 % SV(sp4-el): 58.3 ml LA A4 area: 18.1 cm2 RA A4 area: 14.0 cm2 TAPSE: 2.5 cm Time Measurements MV dec time: 0.17 sec Doppler Measurements & Calculations MV E max drake: 96.3 cm/sec Lat Peak E' Drake: 7.3 cm/sec Med Peak E' Drake: 6.7 cm/sec MV A max drake: 91.8 cm/sec E/E' lat: 13.1 E/E' med: 14.3 MV E/A: 1.0 MV V2 max: 113.2 cm/sec MV P1/2t max drake: 114.3 cm/sec Ao V2 max: 152.0 cm/sec MV max P.1 mmHg MV P1/2t: 63.9 msec Ao max P.2 mmHg MV V2 mean: 66.0 cm/sec MV dec slope: 523.9 cm/sec2 Ao V2 mean: 101.5 cm/sec MV mean P.0 mmHg Ao mean P.7 mmHg MV V2 VTI: 35.7 cm MVA(P1/2t): 3.4 cm2 Ao V2 VTI: 32.1 cm AV (velocity ratio): 0.87 LV V1 max: 122.2 cm/sec PA V2 max: 93.0 cm/sec TR max drake: 252.5 cm/sec LV V1 max P.0 mmHg TR max P.5 mmHg LV V1 mean P.3 mmHg LV V1 mean: 83.9 cm/sec LV V1 VTI: 27.8 cm ECHO/Echo Complete Interpretation Summary The estimated ejection fraction is 60 %. Normal diastology for age. Mild concentric left ventricular hypertrophy. Structurally normal valves. Ordering Physician: León Cruz Referring Physician: Susanna Monroe M.D. Performed By: Julián Aguiar RCS
--- NOTE | 2024-01-20 13:27 | STRESSREP ---
Stress Test Report Date: 01/20/2024 Procedure: Pharmacologic stress nuclear imaging study Indications: Dyspnea on exertion Consent: Per the patient Procedure: The patient underwent pharmacologic (Regadenoson 0.4mg ) evaluation with a peak heart rate of 92 beats per minute (58%predicted maximal heart rate) and a peak blood pressure of 150/82 mmHg. The baseline ECG demonstrated sinus rhythm with nonspecific ST flattening. The peak pharmacologic ECG demonstrated no ischemic changes. There were no cardiac dysrhythmias pretest, during pharmacologic infusion, or recovery. There was no complaint of chest discomfort during pharmacologic infusion or recovery. The patient was injected with 13.0 millicuries of technetium 99m Cardiolite and subsequently rest SPECT Cardiolite nuclear imaging was obtained in the horizontal long, vertical long, and short axis views. The patient underwent pharmacologic (Regadenoson) evaluation. The patient was injected with 40.1 millicuries of technetium 99m Cardiolite and subsequently stress SPECT Cardiolite nuclear imaging was obtained in the horizontal long, vertical long, and short axis views. A gated Cardiolite study at peak stress was obtained. The examination was stopped secondary to completion of protocol. Rest and stress SPECT Cardiolite nuclear imaging status post realignment, normalization, and attenuation correction demonstrate no fixed or reversible perfusion defects. There is end systolic thickening and brightening. The gated Cardiolite study demonstrates myocardial thickening and inward wall motion. The reported LVEF is 74%. Impression: 1. Pharmacologic (Regadenoson) evaluation 2. Peak pharmacologic ECG with no ischemic changes. 3. There were no cardiac dysrhythmias pretest, during pharmacologic infusion, or recovery. 5. Rest and stress SPECT Cardiolite nuclear imaging demonstrate relative uniform tracer uptake and myocardial perfusion appearing within normal limits. 6. The gated Cardiolite study reports an LVEF of 74%. This note was generated with [employer]ar[employer] software. It may contain incorrect words, spelling, and punctuation that were not noted in checking the note before signing.
== END | disposition home or self-care (01) ==
LOC: CVS 06:45
PROVIDERS: PCP Internal Medicine; Referring Provider Internal Medicine Cardiovascular Disease; Visit Provider Internal Medicine Cardiovascular Disease
DX: R07.9 Chest pain, unspecified (principal); R06.02 Shortness of breath
CPT/HCPCS: 78452; 93017; 93306; A9500; A4216; J2785

== ENCOUNTER 2024-03-21 08:45 | Inpatient (IN) | payer MEDICARE, MEDICAID, SELFPAY ==
[2024-03-21] VITALS (14 sets, daily range): BP systolic 99–145; BP diastolic 59–85; PULSE 94–135; RESP 20–30; TEMP 36–36.8; O2SAT 91–96; BMI 32.3; BMI 31.7
[2024-03-21] MEDS: Ipratropium/Albuterol Sulfate 3 ML AMPUL.NEB INHALATION (09:16)
--- NOTE | 2024-03-21 10:11 | EX.ED.DYSGE1 ---
HPI History of Present Illness Chief Complaint: Weakness Informant: patient Onset/Context/Timing Onset: Days Context: Gradual Onset Narrative Narrative: Patient presents secondary to weakness and dizziness. She was diagnosed with a UTI yesterday and placed on Macrobid. She states the night previous to this she had a lightheaded weak episode. Last night she got up to go the bathroom and was so weak she could hard to get back to bed. She felt lightheaded and dizzy. This morning she had to lower herself to the ground. EMS reports she initially was 80/40 with a pulse ox of 84% on room air. Patient does have a reported history of COPD but does not wear home oxygen. She does wear BiPAP at night. She does report increased cough and congestion recently. When asked if she felt as if she had a fever she states maybe a couple degrees. She has had some shortness of breath but denies chest pain. No recent travel or leg swelling. No history of blood clots. [facility] Medical History Family history of aneurysm Wears partial dentures Wears dentures Anxiety Diabetes Bladder disease Dietary restriction History of hiatal hernia Gastric reflux BiPAP (biphasic positive airway pressure) dependence Sleep apnea Smoker Hypertension Cardiology follow-up encounter History of stress test History of echocardiogram Elevated CPK Fatty liver Abdominal pain Diarrhea Hemorrhage of gastrointestinal tract Depression Arthritis Mixed hyperlipidemia Type 2 diabetes mellitus COPD (chronic obstructive pulmonary disease) YARY treated with BiPAP Postoperative anemia Osteoarthritis Anxiety and depression Home Medications ?Medication ?Instructions ?Recorded ?Last Taken ?Type gemfibrozil 600 mg tablet 600 mg PO BID 06/13/14 11/26/23 History trazodone 100 mg tablet 100 mg PO QHS 06/13/14 11/26/23 History alprazolam 0.5 mg tablet 0.5 mg PO QHS ANXIETY 07/30/15 11/27/23 History albuterol sulfate 90 mcg/actuation 1 - 2 puff inhalation Q4H PRN PRN 08/08/15 11/26/23 Rx aerosol inhaler (Ventolin HFA) Wheezing ##1 buspirone 5 mg tablet 7.5 mg PO BID 07/11/18 11/27/23 History metformin 500 mg tablet,extended 500 mg PO BID 07/11/18 11/26/23 History release 24 hr potassium chloride 10 mEq 10 meq PO DAILY 07/11/18 11/26/23 History tablet,extended release(part/cryst) sertraline 100 mg tablet (Zoloft) 200 mg PO QHS 07/11/18 11/27/23 History fluticasone furoate 100 1 ea IH DAILY 07/29/19 11/27/23 History mcg-vilanterol 25 mcg/dose inhalation powder ipratropium bromide 0.02 % 2.5 ml inhalation Q6H PRN 08/21/21 Unknown Rx solution for inhalation shortness of breath or wheezing #75 mL albuterol sulfate 2.5 mg/3 mL 2.5 mg inhalation Q4H PRN 11/15/21 11/26/23 History (0.083 %) solution for nebulization shortness of breath cetirizine 10 mg tablet 10 mg PO DAILY PRN ALLERGIES 11/15/21 Unknown History gabapentin 300 mg capsule 600 mg PO .COMPLEX 11/15/21 11/26/23 History (Neurontin) ibuprofen 600 mg tablet 600 mg PO Q12H PRN pain 11/15/21 Unknown History ketoconazole 2 % topical cream 1 applic topical DAILY 11/15/21 Unknown History fluticasone propionate 50 2 spray intranasal DAILY 01/04/22 11/26/23 History mcg/actuation nasal spray,suspension (Allergy Relief (fluticasone)) ursodiol 300 mg capsule 300 mg PO BID #60 caps 03/26/23 11/26/23 Rx vitamin E mixed 400 unit capsule 800 unit (2 x 400 unit) PO DAILY 03/26/23 11/26/23 Rx #60 caps glipizide 5 mg tablet 5 mg PO DAILY 11/26/23 11/26/23 History lisinopril 20 mg tablet 20 mg PO BID #60 TABLETS 12/19/23 Unknown Rx carvedilol 6.25 mg tablet (Coreg) 6.25 mg PO BID #60 tabs 01/20/24 Unknown Rx hydrochlorothiazide 50 mg tablet 50 mg PO DAILY #30 tabs 01/20/24 Unknown Rx pantoprazole 20 mg tablet,delayed 20 mg PO BID #60 TABLETS 02/10/24 Unknown Rx release Allergy/AdvReac Type Severity Reaction Status Date / Time Cephalosporins Allergy Intermediate Rash Verified 03/21/24 08:47 hydromorphone (From Dilaudid) Allergy Intermediate Altered Verified 03/21/24 08:47 mental status pseudoephedrine Allergy Intermediate Tachycardia Verified 03/21/24 08:47 fluoxetine (From Prozac) Allergy Chest Verified 03/21/24 08:47 tightness house dust mite Allergy NEEDS Verified 03/21/24 08:47 FOLLOW-UP hydrocodone (From Vicodin) Allergy Upset Verified 03/21/24 08:47 Stomach Penicillins Allergy Hives Verified 03/21/24 08:47 prednisone AdvReac PT UNABLE Verified 03/21/24 08:47 TO RESPOND-NEEDS F/U Family History Mother Glaucoma Cervical cancer Asthma Father , at 77 Myocardial infarction Cancer Lung, metastatic to bone CAD (coronary artery disease) History of coronary artery bypass surgery Aortic aneurysm and dissection Sister Colon polyp Thyroid disorder Lung cancer Surgical History History of lumbar laminectomy History of bladder suspension procedure Hx of cholecystectomy History of total right knee replacement Hx of tonsillectomy H/O vaginal hysterectomy Tubal ligation status History of back surgery History of appendectomy S/P total knee arthroplasty Social History household members: none housing: apartment Smoking Status: Current every day smoker tobacco type: cigarettes and pipe alcohol intake: never substance use type: does not use caffeine: Yes Type: carbonated beverages Number of servings: 2 ROS ROS ED Constitutional Constitutional ED: Reports fever(s) and subjective; Denies chills Eyes Eyes: Denies change in vision or discharge from eye(s) ENT ENT ED: Reports other Details: Congestion ; Denies discharge from eye(s), rhinorrhea or sore throat Cardiovascular Cardiovascular: Denies chest pain Respiratory/Chest Respiratory/Chest: Reports cough and dyspnea Gastrointestinal Gastrointestinal: Reports diarrhea, nausea and vomiting; Denies abdominal pain Genitourinary Genitourinary ED: Reports dysuria Musculoskeletal Musculoskeletal: Reports back pain; Denies extremity pain Integumentary Denies Abrasions or rash Neurologic Neurologic: Reports weakness; Denies headache(s) Psychiatric Psychiatric: Denies anxiety or depression Allergic/Immunologic Allergic/Immunologic ED: Denies lip swelling or urticaria EXAM Physical Exam Const Vital Signs: 03/21/24 08:48 03/21/24 08:52 03/21/24 08:52 Temperature 97.2 F L 96.8 F L Temperature Source Temporal Temporal Pulse Rate 135 H Respiratory Rate 22 H Respiratory Effort Respiratory Pattern Blood Pressure 145/85 H 145/85 H Blood Pressure Mean 105 105 Pulse Ox 93 91 Oxygen Delivery Method Room Air Nasal Cannula Oxygen Flow Rate (L/min) 4 03/21/24 08:53 03/21/24 09:17 03/21/24 09:17 Temperature Temperature Source Pulse Rate 128 H Respiratory Rate 30 H Respiratory Effort Short of Breath Respiratory Pattern Tachypnea Blood Pressure Blood Pressure Mean Pulse Ox 92 Oxygen Delivery Method Nasal Cannula Oxygen Flow Rate (L/min) 4 03/21/24 10:14 03/21/24 10:20 03/21/24 11:01 Temperature 97.7 F L 97.5 F L Temperature Source Temporal Temporal Pulse Rate 122 H 124 H 125 H Respiratory Rate 20 H 28 H 21 H Respiratory Effort Respiratory Pattern Blood Pressure 103/59 L 104/67 Blood Pressure Mean 73 79 Pulse Ox 94 95 Oxygen Delivery Method Nasal Cannula Nasal Cannula Oxygen Flow Rate (L/min) 4 3 03/21/24 13:16 Temperature Temperature Source Pulse Rate 118 H Respiratory Rate 22 H Respiratory Effort Respiratory Pattern Blood Pressure 103/70 Blood Pressure Mean 81 Pulse Ox 95 Oxygen Delivery Method Nasal Cannula Oxygen Flow Rate (L/min) 2 Positive well nourished and well developed General Appearance ED: well developed HEENT Reports dry mucous membranes Mouth ED: Yes dry mucous membranes Mouth: dry mucous membranes Eyes EOMs intact bilaterally Chest Wall inspection of chest normal and palpation of chest normal Resp Resp Narrative: Tachypnea with diminished air movement bilaterally. Cardio Rate: tachycardic GI non-tender Auscultation: hypoactive bowel sounds Palpation: soft Extremity normal to inspection Extremity Narrative: No lower extremity edema or calf tenderness. Neuro oriented x3 Motor Exam: strength 5/5 throughout Psych mental status grossly normal Skin no rashes or lesions noted MDM MDM MDM Narrative Medical decision making narrative: Patient placed on hyster machine operator. IV line initiated. Patient given IV fluid bolus. Aerosols given. Labwork obtained to evaluate for leukocytosis, anemia, and electrolyte derangement. Urinalysis obtained to evaluate for infection/hematuria. Chest x-ray obtained to evaluate for acute lung pathology, cardiac size, or mediastinal abnormality. swab for COVID, influenza, and RSV will be obtained. Blood and urine cultures are ordered. History & Record Review Discussion w/independent historian: EMS personnel and Patient Additional record(s) reviewed:: Prior outpatient record, Prior ED visit and Prior labs Lab Data Attestation: I reviewed the patient's lab results. Labs: Laboratory Results - last 24 hr 03/21/24 03/21/24 03/21/24 08:27 10:21 11:15 WBC 17.8 H RBC 5.59 H Hgb 15.4 H Hct 45.9 MCV 82.1 MCH 27.5 MCHC 33.6 RDW Std Deviation 37.2 RDW Coeff of Rodrigo 12.4 Plt Count 306 MPV 11.2 Immature Gran % (Auto) 0.600 Neut % (Auto) 92.6 H Lymph % (Auto) 3.9 L [place] % (Auto) 2.4 Eos % (Auto) 0.2 Baso % (Auto) 0.3 Absolute Neuts (auto) 16.5 H Absolute Lymphs (auto) 0.69 L Nucleated RBC % 0 Sodium 133 L Potassium 3.1 L Chloride 98 Carbon Dioxide 23.0 Anion Gap 12 BUN 20 H Creatinine 1.06 H Estim Creat Clear Calc 61.66 Est GFR (MDRD) Af Amer 67 Est GFR (MDRD) Non-Af 56 L BUN/Creatinine Ratio 18.9 Glucose 266 H Lactic Acid 2.9 H* Calcium 9.5 Total Bilirubin 0.40 Direct Bilirubin 0.12 AST 38 H ALT 23 Alkaline Phosphatase 122 H Troponin I High Sens Total Protein 7.9 Albumin 3.8 Globulin 4.1 Urine Color Lori Urine Clarity Cloudy Urine pH 5.0 Ur Specific [place] 1.025 Urine Protein 30 H Urine Glucose (UA) Normal Urine Ketones Negative Urine Occult Blood 10 H Urine Nitrite Positive H Urine Bilirubin 3 H Urine Urobilinogen 4 H Ur Leukocyte Esterase Negative Urine RBC 0 SEEN Urine WBC 5-10 SEEN Ur Squamous Epith Cells 0-5 SEEN Urine Bacteria 1+ Urine Mucus 0 SEEN 03/21/24 13:00 WBC RBC Hgb Hct MCV MCH MCHC RDW Std Deviation RDW Coeff of Rodrigo Plt Count MPV Immature Gran % (Auto) Neut % (Auto) Lymph % (Auto) [place] % (Auto) Eos % (Auto) Baso % (Auto) Absolute Neuts (auto) Absolute Lymphs (auto) Nucleated RBC % Sodium Potassium Chloride Carbon Dioxide Anion Gap BUN Creatinine Estim Creat Clear Calc Est GFR (MDRD) Af Amer Est GFR (MDRD) Non-Af BUN/Creatinine Ratio Glucose Lactic Acid Calcium Total Bilirubin Direct Bilirubin AST ALT Alkaline Phosphatase Troponin I High Sens 5 Total Protein Albumin Globulin Urine Color Urine Clarity Urine pH Ur Specific [place] Urine Protein Urine Glucose (UA) Urine Ketones Urine Occult Blood Urine Nitrite Urine Bilirubin Urine Urobilinogen Ur Leukocyte Esterase Urine RBC Urine WBC Ur Squamous Epith Cells Urine Bacteria Urine Mucus Radiography Chest X-Ray - ED: 1 View, Read by ED Physician, Chronic Changes and No Infiltrates Diagnostic Testing: Clinical Impression(s) from Imaging Studies Chest X-Ray 03/21/24 10:40 IMPRESSION: Mild left basilar opacity, likely mild pleural effusion with atelectasis. Electronically Signed: Ibis Cortés MD at 11:20 EDT Reading Location ID and State: [facility] / [place] Tel , Service support , Chest CTA 03/21/24 11:22 IMPRESSION: Limited evaluation due to artifact with suspicion for pulmonary emboli in the right middle lobar and right lower lobe segmental pulmonary arteries. Mild air trapping with atelectasis or pneumonitis in the lungs. Mild left lower lobe atelectasis. Mild emphysema with a 5 mm groundglass nodule in the right lower lobe; recommend follow-up. Electronically Signed: Ibis Cortés MD at 12:38 EDT Reading Location ID and State: [facility] / [place] Tel , Service support , Abdomen/Pelvis CT 03/21/24 11:23 IMPRESSION: Mild distal small bowel wall thickening, suggesting mild enteritis. Unremarkable kidneys. Hepatomegaly. Electronically Signed: Ibis Cortés MD at 13:20 EDT , EKG Initial EKG: Attestation: I personally reviewed and interpreted this EKG as follows: Interpretation: Sinus Tachycardia (Sinus tachycardia at 130. [address] depression in the lateral precordial leads.) Treatment and Re-Evaluation :: CBC was a white count of 17.8 with 92% neutrophils. Hemoglobin is 15.4. Chemistry studies reveal a BUN of 20 and a creatinine of 1.06. Baseline creatinine is around 0.5-0.6. Sodium level is 133 and potassium level is low at 3.1. She did receive oral potassium replacement. LFTs significant for an AST of 38 and an alk phos of 122. Lactic acid is elevated at 2.9. Urinalysis reveals 1+ bacteria with 5-10 white cells and positive nitrates. Urine and blood cultures have been sent. EKG is sinus tach with lateral ST depression of approximately 1 mm. Troponin is added and is normal at 5. CTA of the chest is obtained given her persistent tachycardia and hypoxia. There is poor timing of the contrast bolus, however there is suspicion of pulmonary emboli in the right middle lobe and right lower lobe. Patient is given a dose of Lovenox. CT scan of the abdomen pelvis also is obtained. This reveals mild distal small bowel wall thickening suggesting mild enteritis. Unremarkable kidneys. Hepatomegaly noted. Patient did receive a DuoNeb treatment here along with albuterol. She does not have significant wheezing on exam. She is currently satting 95% on 2 L nasal cannula with a heart rate of 118. She has received additional IV fluid boluses given her elevated lactic acid. I will give her a dose of Bactrim for her UTI given her allergy to penicillins, cephalosporins. I will speak with hospitalist regarding admission. Discharge Plan Triage Chief Complaint: Weakness ED Provider: Leila Yang Dx/Rx/DC Orders Clinical Impression: Pulmonary emboli, UTI (urinary tract infection), Hypoxia, Lactic acidosis Prescriptions: No Action fluticasone propionate [Allergy Relief (fluticasone)] 50 mcg/actuation spray,suspension 2 spray intranasal DAILY Rx Instructions: administer into each nostril albuterol sulfate 2.5 mg /3 mL (0.083 %) solution for nebulization 2.5 mg inhalation Q4H PRN (Reason: shortness of breath) ketoconazole 2 % cream 1 applic topical DAILY ibuprofen 600 mg tablet 600 mg PO Q12H PRN (Reason: pain) cetirizine 10 mg tablet 10 mg PO DAILY PRN (Reason: ALLERGIES) lisinopril 20 mg tablet 20 mg PO BID Qty: 60 11RF Patient Comments: 1 TAB DAILY, TAKE 2 TABS IF BP HIGH carvedilol [Coreg] 6.25 mg tablet 6.25 mg PO BID Qty: 60 11RF Rx Instructions: must administer with a meal/food hydrochlorothiazide 50 mg tablet 50 mg PO DAILY Qty: 30 11RF trazodone 100 MG tablet 100 mg PO QHS Patient Comments: Mood/anti-anxiety gemfibrozil 600 MG tablet 600 mg PO BID Patient Comments: Cholesterol alprazolam 0.5 MG tablet 0.5 mg PO QHS Patient Comments: anti-anxiety TAKES 2 TABS OF 0.5MG @ HS albuterol sulfate [Ventolin HFA] 1 INHALER inhaler 1 - 2 puff inhalation Q4H PRN PRN (Reason: Wheezing) Qty: 1 0RF buspirone 5 MG tablet 7.5 mg PO BID Patient Comments: anti-anxiety sertraline [Zoloft] 100 MG tablet 200 mg PO QHS metformin 500 MG tablet 500 mg PO BID potassium chloride 10 MEQ tablet 10 meq PO DAILY gabapentin [Neurontin] 300 mg capsule 600 mg PO .COMPLEX Rx Instructions: 600 mg PO take 2 caps in the am and 2 caps in the evening; fluticasone furoate-vilanterol 1 EACH blister with device 1 ea IH DAILY ipratropium bromide 0.02 % solution 2.5 ml inhalation Q6H PRN (Reason: shortness of breath or wheezing) Qty: 75 2RF glipizide 5 mg tablet 5 mg PO DAILY Patient Comments: 1 TAB DAILY, IF BG OVER 200 1.5 TABS ursodiol 300 mg capsule 300 mg PO BID Qty: 60 11RF vitamin E mixed 400 unit capsule 800 unit PO DAILY Qty: 60 11RF pantoprazole 20 mg tablet,delayed release (DR/EC) 20 mg PO BID Qty: 60 5RF Primary Care Provider: Susanna Monroe Referrals: Susanna Monroe MD [Primary Care Provider] - Print Language: Cymro Disposition Disposition: Acute Care [facility]
[2024-03-21] MEDS: Albuterol 2.5 MG/3 ML VIAL.NEB. INHALATION (10:13)
[2024-03-21] MEDS: 0.9% Normal Saline (1000mL) 1,000 ML 1000 ML IV (10:23)
[2024-03-21 10:33] LABS: Absolute Lymphocyte Count 0.69 X10^3/uL (0.83-4.51); Absolute Neutrophil Count 16.5 X10^3/uL (2.0-7.7); Basophil# 0.05 X10^3/uL; Basophil% 0.3 % (0-1); Eosinophil# 0.03 X10^3/uL; Eosinophils% 0.2 % (0-5); Hematocrit 45.9 % (37-47); Hemoglobin 15.4 g/dL (12.0-15.0); Lymphocyte # 0.69 X10^3/ul (0.83-4.51); Lymphocyte % 3.9 % (19-41); Mean Corp Hgb Conc 33.6 g/dL (32-36); Mean Corpuscular Hgb 27.5 pg (27.0-32.0); Mean Corpuscular Volume 82.1 fL (81-99); Mean Platelet Vol. 11.2 fl (6.2-12.0); Monocyte# 0.43 X10^3/uL; Monocyte% 2.4 % (0-10); NRBC Flagged by Analyzer 0 % (0-5); Neutrophil # 16.49 X10^3/uL (2.7-7.7); Neutrophil % 92.6 % (47-70); Platelet Count 306 K/mm3 (150-450); RBC Distribution Width CV 12.4 % (11.6-14.6); RBC Distribution Width SD 37.2 fl (35.1-43.9); Red Blood Count 5.59 M/mm3 (4.2-5.4); White Blood Count 17.8 K/mm3 (4.4-11.0)
[2024-03-21 10:38] LABS: AST(SGOT) 38 U/L (15-37); Alanine Aminotransfer ALT/SGPT 23 U/L (13-56); Albumin, Serum 3.8 g/dL (3.2-5.0); Alkaline Phosphatase 122 U/L (45-117); Anion Gap 12 (5-15); BUN 20 mg/dL (7-18); BUN/Creat Ratio 18.9 RATIO (10-20); Bilirubin, Direct 0.12 mg/dL (0.00-0.30); Calcium,Total 9.5 mg/dL (8.5-10.1); Chloride 98 mmol/L (98-107); Creatinine, Serum 1.06 mg/dL (0.55-1.02); EST Glomerular Filtration Rate 56 mL/min (>60); Est Glom Filt Rate - Afr Amer 67 mL/min (>60); Estimated Creatinine Clearance 61.66 ml/min; Globulin 4.1 g/dL (2.2-4.2); Glucose 266 mg/dL (74-106); Potassium 3.1 mmol/L (3.5-5.1); Protein, Total 7.9 g/dL (6.4-8.2); Sodium Level 133 mmol/L (136-145)
--- NOTE | 2024-03-21 10:40 | RAD_ITS ---
HISTORY: SOB. TECHNIQUE: XR Chest 1 View. COMPARISON: 06/27/2023. FINDINGS: CARDIOMEDIASTINAL BORDERS: Cardiac silhouette within normal limits in size. Mediastinal contour unremarkable with calcification of the aortic knob. LUNGS: Chronic mild linear atelectasis or scarring in the left lung base. PLEURA: Mild blunting of the left costophrenic angle. OSSEOUS STRUCTURES: Mild degenerative change. RAD/Chest 1 View (Portable) IMPRESSION: Mild left basilar opacity, likely mild pleural effusion with atelectasis. Electronically Signed: Ibis Cortés MD at 11:20 EDT ,
[2024-03-21] MEDS: Potassium Chloride Oral Tablet 20 MEQ 40 MEQ PO (10:56)
[2024-03-21 11:16] LABS: Lactic Acid 2.9 mmol/L (0.4-1.9)
--- NOTE | 2024-03-21 11:22 | CT_ITS ---
HISTORY: hypoxia. TECHNIQUE: CT angiogram of the chest was performed after the intravenous administration of 100 mL Isovue-370. Post-processing of the angiographic images was performed with multiplanar reformation and 3D reconstruction. Individualized dose optimization techniques were used for this CT. 1197 images. COMPARISON: CR same day, CTA 08/18/2015. FINDINGS: CENTRAL AIRWAYS: Patent. LUNGS: Centrilobular emphysema. Mild air trapping and mild left lower lobe atelectasis. Stable 3 mm noncalcified right upper lobe nodule. 5 mm groundglass nodular opacity in the superior segment of the right lower lobe. Slight groundglass opacities in the left upper lobe. PLEURA: No pneumothorax or significant pleural effusion. HEART/PERICARDIUM: Heart within normal limits in size with coronary artery calcification. No right heart strain. No pericardial effusion. PULMONARY ARTERIES: Artifact from dense contrast bolus in the superior vena cava and motion. Mild hypodensities in the right middle lobar and right lower lobe segmental pulmonary arteries. AORTA/VESSELS: No thoracic aortic aneurysm or dissection flap. Mild atherosclerosis. MEDIASTINUM/MATTHEW: No pathologically enlarged lymph nodes. OSSEOUS STRUCTURES: Degenerative change. UPPER ABDOMEN: Refer to CT abdomen. CT/CTA Chest W/WO Contrast IMPRESSION: Limited evaluation due to artifact with suspicion for pulmonary emboli in the right middle lobar and right lower lobe segmental pulmonary arteries. Mild air trapping with atelectasis or pneumonitis in the lungs. Mild left lower lobe atelectasis. Mild emphysema with a 5 mm groundglass nodule in the right lower lobe; recommend follow-up. Electronically Signed: Ibis Cortés MD at 12:38 EDT ,
--- NOTE | 2024-03-21 11:23 | CT_ITS ---
HISTORY: pyelonephritis. TECHNIQUE: Helically acquired images were obtained of the abdomen and pelvis after the intravenous administration of 100mL Isovue-370. Delayed images also obtained. A radiation dose optimization technique was used for this scan. 561 images. COMPARISON: None. FINDINGS: LOWER CHEST: Refer to CTA chest. BOWEL: Bowel nondilated. Mild distal ileal wall thickening. Appendectomy. Underdistended colon without pericolonic stranding. PERITONEUM: No significant ascites. LIVER: No enhancing mass. 22 cm in length. GALLBLADDER/BILIARY TREE: Gallbladder absent. SPLEEN/PANCREAS/ADRENAL GLANDS: Homogeneous and nonenlarged. KIDNEYS: No hydronephrosis. Normal enhancement. VESSELS: Abdominal aortic aneurysm. Atherosclerosis of the abdominal aorta and its major branches. PELVIC ORGANS: Hysterectomy and tubal ligation clips noted. Contracted bladder. BONES: Degenerative changes. CT/Abdomen/Pelvis W IV Cont ONLY IMPRESSION: Mild distal small bowel wall thickening, suggesting mild enteritis. Unremarkable kidneys. Hepatomegaly. Electronically Signed: Ibis Cortés MD at 13:20 EDT ,
[2024-03-21 12:19] LABS: Color, Urine Amber (Yellow); Glucose, Dipstick Normal (Normal); Ketone-Dipstick Negative (Negative); Leukocyte Esterase-Dipstick Negative /ul (Negative); Mucous, Urine 0 SEEN /hpf (<or=2+); Nitrite-Dipstick Positive (Negative); Occult Blood-Urine 10 /ul (Negative); Protein-Dipstick 30 mg/dl (Negative); Red Blood Cells-Urine 0 SEEN /hpf (0-5); Specific Gravity, Urine 1.025 (1.002-1.030); Urine Clarity Cloudy (Clear); Urine Urobilinogen 4 mg/dl (Normal)
[2024-03-21 12:21] LABS: Urine Bilirubin Dipstick 3 mg/dL (Negative)
[2024-03-21 12:27] LABS: Bacteria 1+ /hpf (None Seen); Squamous Epithelial Cells - UA 0-5 SEEN /hpf (5-10); White Blood Cells 5-10 SEEN /hpf (0-5)
[2024-03-21] MEDS: 0.9% Normal Saline (1000mL) 1,000 ML 999 ML IV ×2 (12:27→13:22)
[2024-03-21] MEDS: Enoxaparin 100 MG/ML Syringe 90 MG SC ×2 (13:10→22:34)
[2024-03-21 13:25] LABS: Troponin-I HS 5 pg/mL (3.0-54.0)
[2024-03-21 14:26] LABS: Reflex Lactate? Y
--- NOTE | 2024-03-21 14:48 | NURSING ---
PCU KITTOE PE, UTI, LACTIC ACIDOSIS
--- NOTE | 2024-03-21 15:14 | PCM.HP.STD ---
HPI - General General Date of Admission: 03/21/24 Date of Service: 03/21/24 Chief Complaint: Generalized weakness HPI Narrative GARLAND PARIKH, is a 63 F who presents who presents with generalized weakness. Patient had apparently been diagnosed with acute cystitis a day prior to her admission. Prescribed Macrobid. Took 1 dose of her Macrobid. Woke up on the morning of her presentation with profound generalized weakness. She reported feeling lightheaded and felt he was going to pass out. She finally called EMS squad. EMS upon arrival found patient to be hypoxic with oxygen saturation in the low 80s with systolic blood pressure in the low 80 days. Was placed on supplemental oxygen and transported to the ED. Workup in the ED was consistent with sepsis secondary to acute cystitis. He also underwent CTA of the chest given her significant hypoxia. CTA was reported as Limited evaluation due to artifact with suspicion for pulmonary emboli in the right middle lobar and right lower lobe segmental pulmonary arteries.. Given her presentation patient was started on therapeutic Lovenox and admitted to a monitored bed for further management [facility] Medical History Family history of aneurysm Wears partial dentures Wears dentures Anxiety Diabetes Bladder disease Dietary restriction History of hiatal hernia Gastric reflux BiPAP (biphasic positive airway pressure) dependence Sleep apnea Smoker Hypertension Cardiology follow-up encounter History of stress test History of echocardiogram Elevated CPK Fatty liver Abdominal pain Diarrhea Hemorrhage of gastrointestinal tract Depression Arthritis Mixed hyperlipidemia Type 2 diabetes mellitus COPD (chronic obstructive pulmonary disease) YARY treated with BiPAP Postoperative anemia Osteoarthritis Anxiety and depression Home Medications ?Medication ?Instructions ?Recorded ?Last Taken ?Type gemfibrozil 600 mg tablet 600 mg PO BID Cholestrol 06/13/14 11/26/23 History trazodone 100 mg tablet 100 mg PO QHS Mood 06/13/14 11/26/23 History alprazolam 0.5 mg tablet 0.5 mg PO QHS ANXIETY 07/30/15 11/27/23 History albuterol sulfate 90 mcg/actuation 1 - 2 puff inhalation Q4H PRN PRN 08/08/15 11/26/23 Rx aerosol inhaler (Ventolin HFA) Wheezing ##1 buspirone 5 mg tablet 7.5 mg PO BID Mood 07/11/18 03/20/24 History metformin 500 mg tablet,extended 500 mg PO BID Diabetes 07/11/18 11/26/23 History release 24 hr potassium chloride 10 mEq 10 meq PO DAILY Supplement 07/11/18 11/26/23 History tablet,extended release(part/cryst) sertraline 100 mg tablet (Zoloft) 200 mg PO QHS Depress 07/11/18 11/27/23 History fluticasone furoate 100 1 ea IH DAILY Breathing 07/29/19 11/27/23 History mcg-vilanterol 25 mcg/dose inhalation powder ipratropium bromide 0.02 % 2.5 ml inhalation Q6H PRN 08/21/21 Unknown Rx solution for inhalation shortness of breath or wheezing #75 mL albuterol sulfate 2.5 mg/3 mL 2.5 mg inhalation Q4H PRN 11/15/21 11/26/23 History (0.083 %) solution for nebulization shortness of breath cetirizine 10 mg tablet 10 mg PO DAILY PRN ALLERGIES 11/15/21 Unknown History gabapentin 300 mg capsule 600 mg PO .COMPLEX neuropathy 11/15/21 11/26/23 History (Neurontin) ibuprofen 600 mg tablet 600 mg PO Q12H PRN pain 11/15/21 Unknown History fluticasone propionate 50 2 spray intranasal DAILY 01/04/22 11/26/23 History mcg/actuation nasal spray,suspension (Allergy Relief (fluticasone)) ursodiol 300 mg capsule 300 mg PO BID Gallstone #60 caps 03/26/23 11/26/23 Rx vitamin E mixed 400 unit capsule 800 unit (2 x 400 unit) PO DAILY 03/26/23 11/26/23 Rx Supplement #60 caps glipizide 5 mg tablet 5 mg PO DAILY Diabetes 11/26/23 11/26/23 History lisinopril 20 mg tablet 20 mg PO BID bp #60 TABLETS 12/19/23 Unknown Rx carvedilol 6.25 mg tablet (Coreg) 6.25 mg PO BID Heart #60 tabs 01/20/24 Unknown Rx hydrochlorothiazide 50 mg tablet 50 mg PO DAILY Blood pressuree #30 01/20/24 Unknown Rx tabs pantoprazole 20 mg tablet,delayed 20 mg PO BID GERD #60 TABLETS 02/10/24 Unknown Rx release Allergy/AdvReac Type Severity Reaction Status Date / Time Cephalosporins Allergy Intermediate Rash Verified 03/21/24 08:47 hydromorphone (From Dilaudid) Allergy Intermediate Altered Verified 03/21/24 08:47 mental status pseudoephedrine Allergy Intermediate Tachycardia Verified 03/21/24 08:47 fluoxetine (From Prozac) Allergy Chest Verified 03/21/24 08:47 tightness house dust mite Allergy NEEDS Verified 03/21/24 08:47 FOLLOW-UP hydrocodone (From Vicodin) Allergy Upset Verified 03/21/24 08:47 Stomach Penicillins Allergy Hives Verified 03/21/24 08:47 prednisone AdvReac PT UNABLE Verified 03/21/24 08:47 TO RESPOND-NEEDS F/U Family History Mother Glaucoma Cervical cancer Asthma Father , at 77 Myocardial infarction Cancer Lung, metastatic to bone CAD (coronary artery disease) History of coronary artery bypass surgery Aortic aneurysm and dissection Sister Colon polyp Thyroid disorder Lung cancer Surgical History History of lumbar laminectomy History of bladder suspension procedure Hx of cholecystectomy History of total right knee replacement Hx of tonsillectomy H/O vaginal hysterectomy Tubal ligation status History of back surgery History of appendectomy S/P total knee arthroplasty Social History household members: none housing: apartment Smoking Status: Current every day smoker tobacco type: cigarettes and pipe alcohol intake: never substance use type: does not use caffeine: Yes Type: carbonated beverages Number of servings: 2 ROS ROS Narrative GENERAL: Generalized weakness HEENT: denies headache, sinus congestion, or drainage, dysphagia RESPIRATORY: denies cough, sputum production, shortness of breath, dyspnea on exertion CARDIAC: denies chest pain, palpitations, orthopnea, PND GASTROINTESTINAL: denies abdominal pain, nausea, vomiting, melena, GENITOURINARY: denies dysuria, urgency, frequency, heamaturia EXTREMITY: denies swelling MUSCULOSKELETAL: denies current joint pain or tenderness NEUROLOGIC: denies focal numbness, weakness, tingling HEMATOLOGIC: denies easy bruising and/or hemorrhage INTEGUMENT: denies rashes PSYCHIATRIC: denies suicidal or homicidal ideation Vital Signs Vital Signs Vital Signs: 03/21/24 08:48 03/21/24 08:52 03/21/24 08:52 Temperature 97.2 F L 96.8 F L Temperature Source Temporal Temporal Pulse Rate 135 H Respiratory Rate 22 H Respiratory Effort Respiratory Pattern Blood Pressure 145/85 H 145/85 H Blood Pressure Mean 105 105 Pulse Ox 93 91 Oxygen Delivery Method Room Air Nasal Cannula Oxygen Flow Rate (L/min) 4 03/21/24 08:53 03/21/24 09:17 03/21/24 09:17 Temperature Temperature Source Pulse Rate 128 H Respiratory Rate 30 H Respiratory Effort Short of Breath Respiratory Pattern Tachypnea Blood Pressure Blood Pressure Mean Pulse Ox 92 Oxygen Delivery Method Nasal Cannula Oxygen Flow Rate (L/min) 4 03/21/24 10:14 03/21/24 10:20 03/21/24 11:01 Temperature 97.7 F L 97.5 F L Temperature Source Temporal Temporal Pulse Rate 122 H 124 H 125 H Respiratory Rate 20 H 28 H 21 H Respiratory Effort Respiratory Pattern Blood Pressure 103/59 L 104/67 Blood Pressure Mean 73 79 Pulse Ox 94 95 Oxygen Delivery Method Nasal Cannula Nasal Cannula Oxygen Flow Rate (L/min) 4 3 03/21/24 13:16 03/21/24 14:12 03/21/24 14:52 Temperature 97.8 F 98 F Temperature Source Temporal Pulse Rate 118 H 110 H 118 H Respiratory Rate 22 H 23 H 22 H Respiratory Effort Respiratory Pattern Blood Pressure 103/70 99/63 99/63 Blood Pressure Mean 81 75 75 Pulse Ox 95 96 94 Oxygen Delivery Method Nasal Cannula Nasal Cannula Oxygen Flow Rate (L/min) 2 2 Weight Weight: 90.8 kg Body Mass Index (BMI) 32.3 Physical Exam Narrative GENERAL: cooperative HEENT: Atraumatic; normocephalic EYES; Anicteric, Normal Conjunctiva NECK; supple, normal thyroid, RESPIRATORY: Diminished to auscultation CARDIOVASCULAR: Regular S1 S2, GI: soft, normoactive bowel sounds, : No Renal angle tenderness; EXTREMITIES: No edema, no clubbing, MUSCULOSKELETAL: no muscle wasting NEURO: Awake; no lateralizing signs. SKIN: No Rash PSYCH; Flat affect Results Lab / Micro Data 03/21/24 08:27 03/21/24 08:27 Labs: Laboratory Results - last 24 hr 03/21/24 08:27: WBC 17.8 H, RBC 5.59 H, Hgb 15.4 H, Hct 45.9, MCV 82.1, MCH 27.5, MCHC 33.6, RDW Std Deviation 37.2, RDW Coeff of Rodrigo 12.4, Plt Count 306, MPV 11.2, Immature Gran % (Auto) 0.600, Neut % (Auto) 92.6 H, Lymph % (Auto) 3.9 L, Wallace % (Auto) 2.4, Eos % (Auto) 0.2, Baso % (Auto) 0.3, Absolute Neuts (auto) 16.5 H, Absolute Lymphs (auto) 0.69 L, Nucleated RBC % 0, Sodium 133 L, Potassium 3.1 L, Chloride 98, Carbon Dioxide 23.0, Anion Gap 12, BUN 20 H, Creatinine 1.06 H, Estim Creat Clear Calc 61.66, Est GFR (MDRD) Af Amer 67, Est GFR (MDRD) Non-Af 56 L, BUN/Creatinine Ratio 18.9, Glucose 266 H, Calcium 9.5, Total Bilirubin 0.40, Direct Bilirubin 0.12, AST 38 H, ALT 23, Alkaline Phosphatase 122 H, Total Protein 7.9, Albumin 3.8, Globulin 4.1 03/21/24 10:21: Lactic Acid 2.9 H* 03/21/24 11:15: Urine Color Lori, Urine Clarity Cloudy, Urine pH 5.0, Ur Specific [place] 1.025, Urine Protein 30 H, Urine Glucose (UA) Normal, Urine Ketones Negative, Urine Occult Blood 10 H, Urine Nitrite Positive H, Urine Bilirubin 3 H, Urine Urobilinogen 4 H, Ur Leukocyte Esterase Negative, Urine RBC 0 SEEN, Urine WBC 5-10 SEEN, Ur Squamous Epith Cells 0-5 SEEN, Urine Bacteria 1+, Urine Mucus 0 SEEN 03/21/24 13:00: Troponin I High Sens 5 Micro: Microbiology 03/21/24 10:29 Mucosa - Nose SARS-CoV-2, Influenza & RSV (PCR) - Final Imaging Radiology Impression Chest X-Ray 03/21/24 10:40 IMPRESSION: Mild left basilar opacity, likely mild pleural effusion with atelectasis. Electronically Signed: Garland Cortés MD at 11:20 EDT , Chest CTA 03/21/24 11:22 IMPRESSION: Limited evaluation due to artifact with suspicion for pulmonary emboli in the right middle lobar and right lower lobe segmental pulmonary arteries. Mild air trapping with atelectasis or pneumonitis in the lungs. Mild left lower lobe atelectasis. Mild emphysema with a 5 mm groundglass nodule in the right lower lobe; recommend follow-up. Electronically Signed: Garland Cortés MD at 12:38 EDT , Abdomen/Pelvis CT 03/21/24 11:23 IMPRESSION: Mild distal small bowel wall thickening, suggesting mild enteritis. Unremarkable kidneys. Hepatomegaly. Electronically Signed: Garland Cortés MD at 13:20 EDT , Assessment & Plan Assessment/Plan (1) Hypoxia: (2) Lactic acidosis: (3) UTI (urinary tract infection): QUALIFIERS: Urinary tract infection type: acute cystitis Hematuria presence: without hematuria Qualified Code(s): N30.00 - Acute cystitis without hematuria (4) Pulmonary emboli: QUALIFIERS: Pulmonary embolism type: multiple subsegmental (without acute cor pulmonale) Qualified Code(s): I26.94 - Multiple subsegmental pulmonary emboli without acute cor pulmonale PLAN: Plan Patient is a 63-year-old lady with multiple comorbidities admitted with progressive generalized weakness and assessment of sepsis is secondary to UTI as well as suspected right-sided pulmonary embolism made admitted to monitored bed for further management 1. Sepsis ? Secondary to acute cystitis. Patient was started on Levaquin (has allergies to penicillin as well as cephalosporin). Patient responded to IV fluid resuscitation in the ED cultures both urine and blood were sent prior to initiation of antibiotic therapy. Response to therapy being monitored with patient blood pressure as well as serial lactic acid levels 2. Suspected pulmonary embolism -CT was reported as being Limited due to artifact with suspicion for pulmonary emboli in the right middle lobar and right lower lobe segmental pulmonary arteries. Given the presentation patient was empirically started on Lovenox admitted to monitored bed. Ordered 2D echo and bilateral venous duplex 3. 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 Did continue patient bronchodilator therapy 5. Obstructive sleep apnea ? Patient is on CPAP at night consistent use encouraged 6. Diabetes mellitus type II -patient's oral hypoglycemics held. Placed on long acting insulin, Accu-Cheks a.c. and at bedtime and covered with sliding scale insulin 7. Class I obesity with BMI of 32.3 ? Complicating care weight loss advised 8. Hypertension - Blood pressure controlled, home medications except for HCTZ continued with dose adjustment as needed 9. Hyponatremia ? Secondary to patient being on HCTZ offending medications held labs ordered for a.m. 10. Hypokalemia ? Secondary to HCTZ corrected per protocol repeat labs including BMP ordered for a.m. 11. GERD ? Patient is on PPI continue 12. Depression with anxiety ? Patient is on sertraline at night did continue in addition to alprazolam plan is to resume once home medications have been reconciled 13. Tobacco dependence - Counseled on cessation, offered nicotine patch for tobacco cravings Advance planning; did discuss with the patient regarding advanced directives as well as CODE STATUS. Did explain the various scenarios involved ( FULL CODE, DNR CCA, DNR CCA with no intubation, and DNR CC and what each meant) patient elected to to remain full code with CPR and intubation if needed. Order was placed. Time spent on discussion 18 minutes. Sepsis Attestation Sepsis Attestation: Agree w/Sepsis Date exam was performed: 03/21/24 Time exam was performed: 15:00 Possible Source of Sepsis: Genitourinary Sepsis Organ Dysfunction Criteria Present: SBP < 90 mmHg or MAP < 65 mmHg and Lactic Acid > 2 mmol/L Charges/Coding Multi Select Codes Visit Charges Visit Charges: 56858 Init [facility]osp Hospitalists' Procedures Procedures: 85731 Advncd Care Plan 30 Min
--- NOTE | 2024-03-21 16:07 | ECHOD_ITS ---
Reason For Study: PULMONARY EMBOLISM Procedure This was a 2D Doppler, Color Flow transthoracic echocardiogram. Exam performed portable in patient room. Left Ventricle Normal LV size. The estimated ejection fraction is 65 %. No evidence for diastolic dysfunction. No regional wall motion abnormalities noted. Right Ventricle Normal right ventricle. Normal systolic function. Atria Normal left atrium. Normal right atrium. No doppler evidence for ASD. Mitral Valve There is no mitral valve stenosis. No mitral valve insufficiency. Tricuspid Valve There is no tricuspid stenosis. Unable to estimate RV systolic pressure due to inadequate jet, pulmonary artery pressure probably normal. Aortic Valve Trisinus/trileaflet aortic valve. There is no aortic stenosis. No aortic valve insufficiency. Pulmonic Valve There is no pulmonic valvular stenosis. Trivial pulmonic valve insufficiency. Great Vessels Normal aortic root. Pericardium/Pleural No pericardial effusion. MMode/2D Measurements & Calculations LVIDd: 4.6 cm IVSd: 1.5 cm LVOT diam: 2.0 cm LVIDs: 3.0 cm LVPWd: 1.2 cm LVOT area: 3.2 cm2 RVDd: 3.3 cm FS: 34.2 % Ao root diam: 3.3 cm LAV(MOD-bp): 54.3 ml LVAd ap4: 25.0 cm2 LAV(MOD-bp) Indexed: 27.2 ml/m2 LVLd ap4: 7.3 cm LAV(MOD-sp2): 52.7 ml EDV(MOD-sp4): 69.0 ml LAV(MOD-sp4): 53.2 ml EDV(sp4-el): 72.6 ml LVAs ap4: 12.9 cm2 LVLs ap4: 6.0 cm ESV(MOD-sp4): 24.1 ml ESV(sp4-el): 23.7 ml EF(MOD-sp4): 65.0 % EF(sp4-el): 67.3 % LVAd ap2: 22.9 cm2 SV(MOD-sp4): 44.9 ml SV(MOD-sp2): 40.5 ml LVLd ap2: 6.6 cm EDV(MOD-sp2): 64.2 ml EDV(sp2-el): 67.4 ml LVAs ap2: 12.4 cm2 LVLs ap2: 5.4 cm ESV(MOD-sp2): 23.7 ml ESV(sp2-el): 24.2 ml EF(MOD-sp2): 63.1 % SV(sp4-el): 48.8 ml LA dimension(2D): 4.0 cm LA A4 area: 18.9 cm2 RA A4 area: 14.8 cm2 TAPSE: 2.2 cm Time Measurements MV dec time: 0.13 sec Doppler Measurements & Calculations MV E max drake: 86.8 cm/sec Lat Peak E' Drake: 9.3 cm/sec Med Peak E' Drake: 7.0 cm/sec MV A max drake: 101.7 cm/sec E/E' lat: 9.3 E/E' med: 12.4 MV E/A: 0.85 Ao V2 max: 140.0 cm/sec LV V1 max: 88.0 cm/sec MV dec slope: 644.8 cm/sec2 Ao max P.8 mmHg LV V1 max P.1 mmHg Ao V2 mean: 101.3 cm/sec LV V1 mean P.8 mmHg Ao mean P.6 mmHg LV V1 mean: 62.6 cm/sec Ao V2 VTI: 32.1 cm LV V1 VTI: 18.1 cm AV (velocity ratio): 0.56 HUMA(I,D): 1.8 cm2 HUMA(V,D): 2.0 cm2 SV(LVOT): 57.6 ml PA V2 max: 90.5 cm/sec PI end-d drake: 116.5 cm/sec PA max PG (full): 1.4 mmHg ECHO/Echo Complete Interpretation Summary The estimated ejection fraction is 65 %. No evidence for diastolic dysfunction. Trivial pulmonic valve insufficiency. Ordering Physician: Camden Smith Referring Physician: Susanna Monroe M.D. Performed By: Zuri Briseno RDCS
--- NOTE | 2024-03-21 16:07 | VDLE_ITS ---
Reason For Study: HX Pulmonary Embolism RIGHT LEFT GSV is normal. GSV is normal. CFV is compressible, spontaneous, phasic, CFV is compressible, spontaneous, phasic, competent and demonstrates normal competent, and demonstrates normal augmentation. augmentation. FV is compressible, spontaneous, phasic, FV is compressible, spontaneous, phasic, competent and demonstrates normal competent and demonstrates normal augmentation. augmentation. POP V is compressible, spontaneous, phasic, POP V is compressible, spontaneous, phasic, competent and demonstrates normal competent and demonstrates normal augmentation. augmentation. T/P Trunk is compressible. T/P Trunk is compressible. PTV is compressible. PTV is compressible. RT PerV is compressible. LT PerV is compressible. Procedure This is a venous duplex using B-mode, color flow and spectral Doppler. Exam performed portable in patient room. The exam was diagnostic. A preliminary report was called and/or faxed to PCU safety deposit boxes custodian. VL/Venous Duplex US - Edwardo Extrem Interpretation Summary Deep veins of the bilateral lower extremities are patent and compressible segme ntally. There is no evidence of bilateral lower extremity deep vein thrombosis. The bilateral great saphenous veins appear patent and compressible segmentally. Ordering Physician: Camden Smith Referring Physician: Susanna Monroe Performed By: Aditya Lagos RVT
[2024-03-21] MEDS: Acetaminophen 325 MG Tablet 650 MG PO (16:44)
[2024-03-21] MEDS: KCL 20MEQ in 0.9% NS 20 MEQ/1,000 ML IV.SOLN. 150 MEQ IV (17:03)
[2024-03-21] MEDS: levoFLOXacin IV 750 MG in Empty Viaflex Q24 100 MG IV (17:05)
[2024-03-21 17:08] LABS: Lactic Acid 2.1 mmol/L (0.4-1.9)
[2024-03-21 17:17] LABS: Bedside Glucose 220 mg/dL (74-106)
[2024-03-21] MEDS: Insulin Lispro 100 UNIT/ML INSULN.PEN SC ×2 (17:53→22:33)
[2024-03-21] MEDS: Budesonide Respules 0.5 MG/2 ML AMPUL.NEB. INHALATION (20:49)
[2024-03-21] MEDS: Insulin Glargine-YFGN 100 UNIT/ML Pen 15 UNIT SC (22:32)
[2024-03-21] MEDS: Gabapentin 600 MG Tablet PO (22:33)
[2024-03-21] MEDS: busPIRone 5 MG Tablet 7.5 MG PO (22:33)
[2024-03-21] MEDS: Pantoprazole Sodium 20 MG Tablet PO (22:34)
[2024-03-21] MEDS: traZODone 100 MG Tablet PO (22:35)
[2024-03-21] MEDS: Ursodiol 250 MG Tablet PO (22:35)
[2024-03-21] MEDS: Carvedilol 6.25 MG Tablet PO (22:35)
[2024-03-21] MEDS: ALPRAZolam 0.5 MG Tablet PO (22:35)
[2024-03-21] MEDS: Sertraline 100 MG Tablet 200 MG PO (22:35)
[2024-03-21] MEDS: Lisinopril 20 MG Tablet PO (22:49)
[2024-03-21 23:05] LABS: Bedside Glucose 190 mg/dL (74-106)
[2024-03-22] VITALS (8 sets, daily range): BP systolic 99–127; BP diastolic 59–84; PULSE 79–101; RESP 18–20; TEMP 35.9–36.4; O2SAT 96–99; BMI 31.9
[2024-03-22] MEDS: KCL 20MEQ in 0.9% NS 20 MEQ/1,000 ML IV.SOLN. 150 MEQ IV (02:36)
[2024-03-22 06:35] LABS: Absolute Lymphocyte Count 1.63 X10^3/uL (0.83-4.51); Absolute Neutrophil Count 7.8 X10^3/uL (2.0-7.7); Basophil# 0.01 X10^3/uL; Basophil% 0.1 % (0-1); Eosinophil# 0.16 X10^3/uL; Eosinophils% 1.6 % (0-5); Hematocrit 38.9 % (37-47); Hemoglobin 12.6 g/dL (12.0-15.0); Lymphocyte # 1.63 X10^3/ul (0.83-4.51); Lymphocyte % 15.9 % (19-41); Mean Corp Hgb Conc 32.4 g/dL (32-36); Mean Corpuscular Hgb 27.5 pg (27.0-32.0); Mean Corpuscular Volume 84.9 fL (81-99); Mean Platelet Vol. 10.6 fl (6.2-12.0); Monocyte# 0.57 X10^3/uL; Monocyte% 5.6 % (0-10); NRBC Flagged by Analyzer 0 % (0-5); Neutrophil # 7.84 X10^3/uL (2.7-7.7); Neutrophil % 76.4 % (47-70); Platelet Count 227 K/mm3 (150-450); RBC Distribution Width CV 12.7 % (11.6-14.6); RBC Distribution Width SD 38.3 fl (35.1-43.9); Red Blood Count 4.58 M/mm3 (4.2-5.4); White Blood Count 10.3 K/mm3 (4.4-11.0)
[2024-03-22 06:35] LABS: Bedside Glucose 174 mg/dL (74-106)
[2024-03-22 07:00] LABS: Anion Gap 5 (5-15); BUN 12 mg/dL (7-18); BUN/Creat Ratio 19.9 RATIO (10-20); Calcium,Total 7.9 mg/dL (8.5-10.1); Chloride 107 mmol/L (98-107); EST Glomerular Filtration Rate 107 mL/min (>60); Est Glom Filt Rate - Afr Amer 129 mL/min (>60); Estimated Creatinine Clearance 108.39 ml/min; Glucose 172 mg/dL (74-106); Magnesium 1.7 mg/dL (1.6-2.6); Phosphorus 2.1 mg/dL (2.5-4.9); Potassium 3.3 mmol/L (3.5-5.1); Sodium Level 138 mmol/L (136-145)
[2024-03-22] MEDS: Insulin Lispro 100 UNIT/ML INSULN.PEN SC ×4 (07:08→22:10)
[2024-03-22] MEDS: Albuterol 2.5 MG/3 ML VIAL.NEB. INHALATION (07:42)
[2024-03-22] MEDS: Budesonide Respules 0.5 MG/2 ML AMPUL.NEB. INHALATION ×2 (07:42→19:55)
--- NOTE | 2024-03-22 08:37 | PN.HOSP_ITS ---
Reason for Visit Reason for Visit: Diagnoses Acidosis, unspecified (03/21/24) Multiple subsegmental pulmonary emboli without acute cor pulmonale (03/21/24) Acute cystitis without hematuria (03/21/24) Hypoxemia (03/21/24) Subjective Subjective Had a large quantity of purulent blood per rectum today in the toilet bowl. Has had some hemorrhoids and has been noticing hematochezia worsening over the past few days. Today was the worst. Denying any abdominal pain. States that when she was at home she felt weak and went to the floor and took her about 40 minutes to get back up. Has never felt weak like that and was noted to be short of breath. Patient denies any history of VTE, lower extremity edema, immobility, long travel. Objective Data Objective Data Vital Signs: Vital Signs Temp Pulse Resp BP Pulse Ox O2 Del Method O2 Flow Rate 36.3 C L 89 18 106/59 L 97 Room Air 3 03/22/24 03:00 03/22/24 03:00 03/22/24 03:00 03/22/24 03:00 03/22/24 03:00 03/22/24 03:00 03/22/24 03:00 Oxygen Flow Rate (L/min) 3 Oxygen Delivery Method Room Air Weight: 89.9 kg Body Mass Index (BMI) 31.9 Intake & Output: Intake and Output for Last 24 Hours 03/20/24 03/21/24 03/22/24 23:59 23:59 23:59 Intake Total 4365.75 / 4365.75 Balance 4365.75 / 4365.75 Lab / Micro Data 03/22/24 06:05 03/22/24 06:05 Labs: Laboratory Results - last 24 hr 03/21/24 08:27: WBC 17.8 H, RBC 5.59 H, Hgb 15.4 H, Hct 45.9, MCV 82.1, MCH 27.5, MCHC 33.6, RDW Std Deviation 37.2, RDW Coeff of Rodrigo 12.4, Plt Count 306, MPV 11.2, Immature Gran % (Auto) 0.600, Neut % (Auto) 92.6 H, Lymph % (Auto) 3.9 L, [place] % (Auto) 2.4, Eos % (Auto) 0.2, Baso % (Auto) 0.3, Absolute Neuts (auto) 16.5 H, Absolute Lymphs (auto) 0.69 L, Nucleated RBC % 0, Sodium 133 L, P otassium 3.1 L, Chloride 98, Carbon Dioxide 23.0, Anion Gap 12, BUN 20 H, C reatinine 1.06 H, Estim Creat Clear Calc 61.66, Est GFR (MDRD) Af Amer 67, Est GFR (MDRD) Non-Af 56 L, BUN/Creatinine Ratio 18.9, Glucose 266 H, Calcium 9.5, Total Bilirubin 0.40, Direct Bilirubin 0.12, AST 38 H, ALT 23, Alkaline Phosphatase 122 H, Total Protein 7.9, Albumin 3.8, Globulin 4.1 03/21/24 10:21: Lactic Acid 2.9 H* 03/21/24 11:15: Urine Color Lori, Urine Clarity Cloudy, Urine pH 5.0, Ur Specific [place] 1.025, Urine Protein 30 H, Urine Glucose (UA) Normal, Urine Ketones Negative, Urine Occult Blood 10 H, Urine Nitrite Positive H, Urine Bilirubin 3 H, Urine Urobilinogen 4 H, Ur Leukocyte Esterase Negative, Urine RBC 0 SEEN, Urine WBC 5-10 SEEN, Ur Squamous Epith Cells 0-5 SEEN, Urine Bacteria 1+, Urine Mucus 0 SEEN 03/21/24 13:00: Troponin I High Sens 5 03/21/24 16:15: Lactic Acid 2.1 H* 03/21/24 16:46: POC Glucose 220 H 03/21/24 22:15: POC Glucose 190 H 03/22/24 06:05: WBC 10.3, RBC 4.58, Hgb 12.6, Hct 38.9, MCV 84.9, MCH 27.5, MCHC 32.4, RDW Std Deviation 38.3, RDW Coeff of Rodrigo 12.7, Plt Count 227, MPV 10.6, Immature Gran % (Auto) 0.400, Neut % (Auto) 76.4 H, Lymph % (Auto) 15.9 L, [place] % (Auto) 5.6, Eos % (Auto) 1.6, Baso % (Auto) 0.1, Absolute Neuts (auto) 7.8 H, Absolute Lymphs (auto) 1.63, Nucleated RBC % 0, Sodium 138, Potassium 3.3 L, Chloride 107, Carbon Dioxide 26.0, Anion Gap 5, BUN 12, Creatinine 0.60, Estim Creat Clear Calc 108.39, Est GFR (MDRD) Af Amer 129, Est GFR (MDRD) Non-Af 107, BUN/Creatinine Ratio 19.9, Glucose 172 H, Calcium 7.9 L, Phosphorus 2.1 L, Magnesium 1.7 03/22/24 06:13: POC Glucose 174 H Micro: Microbiology 03/21/24 11:15 Urine, Clean Catch Urine Culture - Preliminary GNR lactose community aide 03/21/24 10:29 Mucosa - Nose SARS-CoV-2, Influenza & RSV (PCR) - Final Radiography Diagnostic Testing: Radiology Impression Chest X-Ray 03/21/24 10:40 IMPRESSION: Mild left basilar opacity, likely mild pleural effusion with atelectasis. Electronically Signed: Ibis Cortés MD at 11:20 EDT Reading Location ID and State: [facility] / [place] Tel , Service support , Chest CTA 03/21/24 11:22 IMPRESSION: Limited evaluation due to artifact with suspicion for pulmonary emboli in the right middle lobar and right lower lobe segmental pulmonary arteries. Mild air trapping with atelectasis or pneumonitis in the lungs. Mild left lower lobe atelectasis. Mild emphysema with a 5 mm groundglass nodule in the right lower lobe; recommend follow-up. Electronically Signed: Ibis Cortés MD at 12:38 EDT Reading Location ID and State: [facility] / [place] Tel , Service support , Abdomen/Pelvis CT 03/21/24 11:23 IMPRESSION: Mild distal small bowel wall thickening, suggesting mild enteritis. Unremarkable kidneys. Hepatomegaly. Electronically Signed: Ibis Cortés MD at 13:20 EDT Reading Location ID and State: [facility] / [place] Tel , Service support , Physical Exam Const alert and no apparent distress Constitutional Narrative: Sitting up in bed. No respiratory distress. No conversational dyspnea. On nasal cannula. HEENT head/scalp atraumatic and moist oral mucous membranes Resp normal respiratory effort and no retractions Resp Narrative: Left lower lobe crackles Cardio regular rate, regular rhythm, S1 normal heart sound and S2 normal heart sound GI normal to inspection, nondistended, normoactive bowel sounds, soft to palpation, non-tender and non-distended Assessment & Plan Assessment/Plan (1) Hypoxia: (2) Lactic acidosis: (3) UTI (urinary tract infection): QUALIFIERS: Hematuria presence: without hematuria Urinary tract infection type: acute cystitis Qualified Code(s): N30.00 - Acute cystitis without hematuria (4) Pulmonary emboli: QUALIFIERS: Pulmonary embolism type: multiple subsegmental (without acute cor pulmonale) Qualified Code(s): I26.94 - Multiple subsegmental pulmonary emboli without acute cor pulmonale PLAN: Plan Sepsis * POA: qSOFA of 2. SIRS 3 on admission. * I suspect either due to pneumonia v enteritis (UTI ruled out) * Data: CTA chest personally reviewed and shows questionable LLL infiltrate v abscess. CT a/p shows possible enteritis. Urinalysis shows positive nitrates, but only 5-10 WBC. I doubt UTI. COVID-19, influenza, RSV negative. * Continue Abx with levofloxacin * Check SCx. Strep and Legionella antigens. Hypoxia * pt hypoxic in the field with pulse ox in the 80s. Now on 3 liters NC * CTA chest limited, due to artifact and suspicion of pulmonary emboli in the right middle and right lower lobe. Possible LLL infiltrate however. * D-dimer is elevated at 1.56. My clinical suspicion for this being a pulmonary embolism is low. D-dimer could be elevated due to underlying infection. Patient had hematochezia so I do not feel that she needs anticoagulation at this time. Will follow through with the echocardiogram as well as a duplex. Will recheck CT angiogram on the . Patient made aware of the findings of the CAT scan and possibility that there could be pulmonary embolism that her pretest probability was low to begin with. Questionable pulmonary emboli * Patient had low pretest probability of PE other than hypoxia. There is artifact noted on the CAT scan and possible right middle and right lower lobe pulmonary embolism. Patient may be hypoxic due to underlying pneumonia. * Duplex and echocardiogram been ordered. * Patient had been on therapeutic enoxaparin but was held due to hematochezia. Lower GI bleed * Patient stable at this time. * Patient has known history of internal hemorrhoids which have bled and been banded before. * Holding off on anticoagulation due to GI bleed. If persists, check CTA A/P. Consult GI. Chronic conditions: * Hypertension: stable. continue carvedilol lisinopril * Obstructive sleep apnea: CPAP QHS. * DM2: glargine and SSI. * obesity class I: complicates care and recovery. * GERD: PPI * Depression with anxiety: reviewed OARRS, pt does take alprazolam (last filled 03/11/24). VTE prophylaxis: SCDs, holding off on anticoagulation due to GI bleed. Full Code. Charges/Coding Visit Charges Inpatient E&M: 64909 Subs Hosp L3
[2024-03-22] MEDS: Acetaminophen 325 MG Tablet 650 MG PO (09:10)
[2024-03-22] MEDS: Gabapentin 600 MG Tablet PO ×2 (09:25→22:11)
[2024-03-22] MEDS: 0.9% Saline Lock 10 ML Syringe IV (09:25)
[2024-03-22] MEDS: levoFLOXacin IV 750 MG in Empty Viaflex Q24 100 MG IV (10:56)
[2024-03-22] MEDS: Insulin Glargine-YFGN 100 UNIT/ML Pen 15 UNIT SC ×2 (10:57→22:10)
[2024-03-22] MEDS: busPIRone 5 MG Tablet 7.5 MG PO ×2 (10:59→22:11)
[2024-03-22] MEDS: Pantoprazole Sodium 20 MG Tablet PO ×2 (11:00→22:11)
[2024-03-22] MEDS: Ursodiol 250 MG Tablet PO ×2 (11:00→22:11)
[2024-03-22] MEDS: Potassium Chloride Oral Tablet 10 MEQ PO (11:00)
[2024-03-22] MEDS: Potassium Chloride Oral Tablet 20 MEQ 40 MEQ PO (11:07)
[2024-03-22 11:43] LABS: D-Dimer Quantitative (DVT/PE) 1.56 FEU/ug/m (0.27-0.49)
[2024-03-22 12:09] LABS: Bedside Glucose 228 mg/dL (74-106)
[2024-03-22 16:31] LABS: Bedside Glucose 220 mg/dL (74-106)
[2024-03-22] MEDS: Carvedilol 6.25 MG Tablet PO (17:41)
[2024-03-22] MEDS: traZODone 100 MG Tablet PO (22:11)
[2024-03-22] MEDS: ALPRAZolam 0.5 MG Tablet PO (22:11)
[2024-03-22] MEDS: Sertraline 100 MG Tablet 200 MG PO (22:11)
[2024-03-22] MEDS: Lisinopril 20 MG Tablet PO (22:11)
[2024-03-22 22:33] LABS: Bedside Glucose 248 mg/dL (74-106)
[2024-03-23] VITALS (7 sets, daily range): BP systolic 131–173; BP diastolic 68–93; PULSE 70–87; RESP 18; TEMP 35.8–36.8; O2SAT 93–99; BMI 31.5
[2024-03-23] MEDS: Acetaminophen 325 MG Tablet 650 MG PO ×2 (00:26→21:11)
[2024-03-23 06:22] LABS: Absolute Lymphocyte Count 2.43 X10^3/uL (0.83-4.51); Absolute Neutrophil Count 3.1 X10^3/uL (2.0-7.7); Basophil# 0.01 X10^3/uL; Basophil% 0.2 % (0-1); Eosinophil# 0.36 X10^3/uL; Eosinophils% 5.7 % (0-5); Hematocrit 39.8 % (37-47); Hemoglobin 13.3 g/dL (12.0-15.0); Lymphocyte # 2.43 X10^3/ul (0.83-4.51); Lymphocyte % 38.4 % (19-41); Mean Corp Hgb Conc 33.4 g/dL (32-36); Mean Corpuscular Hgb 27.7 pg (27.0-32.0); Mean Corpuscular Volume 82.9 fL (81-99); Mean Platelet Vol. 10.1 fl (6.2-12.0); Monocyte# 0.38 X10^3/uL; NRBC Flagged by Analyzer 0 % (0-5); Neutrophil # 3.13 X10^3/uL (2.7-7.7); Neutrophil % 49.5 % (47-70); Platelet Count 238 K/mm3 (150-450); RBC Distribution Width CV 12.6 % (11.6-14.6); RBC Distribution Width SD 38.3 fl (35.1-43.9); White Blood Count 6.3 K/mm3 (4.4-11.0)
[2024-03-23] MEDS: Insulin Lispro 100 UNIT/ML INSULN.PEN SC ×4 (06:44→21:03)
[2024-03-23 07:02] LABS: Bedside Glucose 151 mg/dL (74-106)
[2024-03-23 07:07] LABS: Anion Gap 4 (5-15); BUN 8 mg/dL (7-18); BUN/Creat Ratio 13.9 RATIO (10-20); Calcium,Total 8.3 mg/dL (8.5-10.1); Chloride 110 mmol/L (98-107); Creatinine, Serum 0.58 mg/dL (0.55-1.02); EST Glomerular Filtration Rate 112 mL/min (>60); Est Glom Filt Rate - Afr Amer 136 mL/min (>60); Estimated Creatinine Clearance 112.12 ml/min; Glucose 149 mg/dL (74-106); Potassium 3.8 mmol/L (3.5-5.1); Sodium Level 138 mmol/L (136-145)
[2024-03-23] MEDS: Albuterol 2.5 MG/3 ML VIAL.NEB. INHALATION (07:23)
[2024-03-23] MEDS: Budesonide Respules 0.5 MG/2 ML AMPUL.NEB. INHALATION ×2 (07:24→19:49)
--- NOTE | 2024-03-23 08:00 | CT_ITS ---
STUDY: CTA CHEST REASON FOR EXAM: Female, 63 years old. Hypoxia. Sepsis. UTI. RADIATION DOSAGE (If Supplied By Facility): CTDIvol = ( 18.46 ) mGy, DLP = ( 497 ) mGycm TECHNIQUE: The examination was performed with the intravenous administration of IV 100mL Isovue-370. Post-processing of the angiographic images was performed, with multiplanar reformation and 3D reconstruction. Individualized dose optimization techniques were used for this CT. COMPARISON: Comparison is made with prior study dated March 21, 2024. FINDINGS: Normal enhancement of the main pulmonary artery and right and left pulmonary arteries. Normal enhancement of the bilateral peripheral pulmonary arteries. There is no demonstrated pulmonary embolism. Normal thoracic aorta and visualized great vessels. There is no demonstrated aortic dissection. There are calcifications of the coronary arteries. Normal mediastinum. Normal hilar regions. Normal visualized trachea and bronchi. The lungs are well expanded. Mild degree of emphysematous changes. Mild degree of increased markings at both lung bases with areas of confluent suggestive of bibasilar atelectasis and/or early infiltrate. Minimal bilateral pleural effusions. Normal chest wall structures. There are degenerative changes of thoracic spine. Small sliding hiatal hernia. CT/CTA Chest W/WO Contrast IMPRESSION: Mild bibasilar atelectasis and/or early infiltrate. No evidence of pulmonary embolism. Electronically Signed: Fili Sagastume MD at 9:40 EDT ,
--- NOTE | 2024-03-23 08:37 | PCM.PN.HOSP ---
Reason for Visit Reason for Visit: Diagnoses Acidosis, unspecified (03/21/24) Multiple subsegmental pulmonary emboli without acute cor pulmonale (03/21/24) Acute cystitis without hematuria (03/21/24) Hypoxemia (03/21/24) Subjective Subjective Breathing well. Breathing better. Patient transitioned over to room air. Objective Data Objective Data Vital Signs: Vital Signs Temp Pulse Resp BP Pulse Ox O2 Del Method O2 Flow Rate 36.6 C 70 18 146/86 H 96 Room Air 3 03/23/24 03:00 03/23/24 07:24 03/23/24 07:24 03/23/24 03:00 03/23/24 07:24 03/23/24 07:24 03/22/24 14:59 Oxygen Flow Rate (L/min) 3 Oxygen Delivery Method Room Air Weight: 89.9 kg Body Mass Index (BMI) 31.9 Intake & Output: Intake and Output for Last 24 Hours 03/21/24 03/22/24 03/23/24 23:59 23:59 23:59 Intake Total 4365.75 / 4365.75 2350 / 3100 1230 / 1230 Output Total 350 / 350 Balance 4365.75 / 4365.75 2000 / 2750 1230 / 1230 Lab / Micro Data 03/23/24 06:08 03/23/24 06:08 Labs: Laboratory Results - last 24 hr 03/22/24 09:18: D-Dimer Quant (PE/DVT) 1.56 H* 03/22/24 11:47: POC Glucose 228 H 03/22/24 16:11: POC Glucose 220 H 03/22/24 22:03: POC Glucose 248 H 03/23/24 06:08: WBC 6.3, RBC 4.80, Hgb 13.3, Hct 39.8, MCV 82.9, MCH 27.7, MCHC 33.4, RDW Std Deviation 38.3, RDW Coeff of Rodrigo 12.6, Plt Count 238, MPV 10.1, Immature Gran % (Auto) 0.200, Neut % (Auto) 49.5, Lymph % (Auto) 38.4, Vance % (Auto) 6.0, Eos % (Auto) 5.7 H, Baso % (Auto) 0.2, Absolute Neuts (auto) 3.1, Absolute Lymphs (auto) 2.43, Nucleated RBC % 0, Sodium 138, Potassium 3.8, Chloride 110 H, Carbon Dioxide 24.0, Anion Gap 4 L, BUN 8, Creatinine 0.58, Estim Creat Clear Calc 112.12, Est GFR (MDRD) Af Amer 136, Est GFR (MDRD) Non-Af 112, BUN/Creatinine Ratio 13.9, Glucose 149 H, Calcium 8.3 L 03/23/24 06:37: POC Glucose 151 H Micro: Microbiology 03/21/24 11:15 Urine, Clean Catch Legionella Antigen - Final 03/21/24 11:15 Urine, Clean Catch Streptococcus pneumoniae Antigen (M - Final 03/21/24 11:15 Urine, Clean Catch Urine Culture - Preliminary GNR lactose dietitian therapeutic 03/21/24 10:29 Mucosa - Nose SARS-CoV-2, Influenza & RSV (PCR) - Final Physical Exam Const alert and no apparent distress HEENT head/scalp atraumatic Resp normal respiratory effort, no retractions and no use of accessory muscles Resp Narrative: Left lower lobe crackles Cardio regular rate, regular rhythm, S1 normal heart sound and S2 normal heart sound GI normal to inspection, nondistended, normoactive bowel sounds, soft to palpation, non-tender and non-distended Extremity normal to inspection Neuro Sensorium / Orientation: awake and alert Assessment & Plan Assessment/Plan (1) Hypoxia: (2) Lactic acidosis: (3) UTI (urinary tract infection): QUALIFIERS: Hematuria presence: without hematuria Urinary tract infection type: acute cystitis Qualified Code(s): N30.00 - Acute cystitis without hematuria (4) Pulmonary emboli: QUALIFIERS: Pulmonary embolism type: multiple subsegmental (without acute cor pulmonale) Qualified Code(s): I26.94 - Multiple subsegmental pulmonary emboli without acute cor pulmonale PLAN: Plan Sepsis POA: qSOFA of 2. SIRS 3 on admission. I suspect either due to pneumonia v enteritis (UTI ruled out) Data: CTA chest personally reviewed and shows questionable LLL infiltrate v abscess. CT a/p shows possible enteritis. Urinalysis shows positive nitrates, but only 5-10 WBC. I doubt UTI. COVID-19, influenza, RSV negative. Continue Abx with levofloxacin Check SCx. Strep and Legionella antigens negative. UCx showing <1000 CFUs of GNR--UTI ruled out. BCx pending. Patient does show me that she had a recent urine culture that showed greater than 100,000 Klebsiella in her urine. Did not provide any sensitivities on her MyChart. Through [facility] was able to see the culture that she had had. Showed Klebsiella pneumoniae that was resistant to ampicillin and intermediate to nitrofurantoin. Was sensitive to ciprofloxacin. No sensitivity was performed on levofloxacin but given that she is improved, would continue with levofloxacin. Hypoxia pt hypoxic in the field with pulse ox in the 80s. Now on 3 liters NC CTA chest limited, due to artifact and suspicion of pulmonary emboli in the right middle and right lower lobe. Possible LLL infiltrate however. D-dimer is elevated at 1.56. My clinical suspicion for this being a pulmonary embolism is low. D-dimer could be elevated due to underlying infection. Patient had hematochezia so I do not feel that she needs anticoagulation at this time. Will follow through with the echocardiogram as well as a duplex. Will recheck CT angiogram on the . Patient made aware of the findings of the CAT scan and possibility that there could be pulmonary embolism that her pretest probability was low to begin with. Questionable pulmonary emboli Ruled out Patient had low pretest probability of PE other than hypoxia. There is artifact noted on the CAT scan and possible right middle and right lower lobe pulmonary embolism. Patient may be hypoxic due to underlying pneumonia. Duplex and echocardiogram been ordered. Patient had been on therapeutic enoxaparin but was held due to hematochezia. Repeat CT of the chest did not show any pulmonary embolism. Lower GI bleed Patient stable at this time. Patient has known history of internal hemorrhoids which have bled and been banded before. Holding off on anticoagulation due to GI bleed. If persists, check CTA A/P. Consult GI. Chronic conditions: Hypertension: stable. continue carvedilol lisinopril Obstructive sleep apnea: CPAP QHS. DM2: glargine and SSI. obesity class I: complicates care and recovery. GERD: PPI Depression with anxiety: reviewed OARRS, pt does take alprazolam (last filled 03/11/24). VTE prophylaxis: SCDs, holding off on anticoagulation due to GI bleed. Full Code. Disposition: To be determined. Will monitor the patient overnight if patient continues to do well then anticipate the patient be able to be discharged on the 16th. Charges/Coding Visit Charges Inpatient E&M: 68213 Subs Hosp L2
[2024-03-23] MEDS: Lisinopril 20 MG Tablet PO ×2 (09:05→20:56)
[2024-03-23] MEDS: Carvedilol 6.25 MG Tablet PO ×2 (09:05→16:38)
[2024-03-23] MEDS: Pantoprazole Sodium 20 MG Tablet PO ×2 (09:05→20:56)
[2024-03-23] MEDS: busPIRone 5 MG Tablet 7.5 MG PO ×2 (09:06→20:57)
[2024-03-23] MEDS: Ursodiol 250 MG Tablet PO ×2 (09:06→20:58)
[2024-03-23] MEDS: Potassium Chloride Oral Tablet 10 MEQ PO (09:06)
[2024-03-23] MEDS: Gabapentin 600 MG Tablet PO ×2 (09:07→20:55)
[2024-03-23] MEDS: Insulin Glargine-YFGN 100 UNIT/ML Pen 15 UNIT SC ×2 (12:03→21:04)
[2024-03-23] MEDS: levoFLOXacin IV 750 MG in Empty Viaflex Q24 100 MG IV (12:04)
[2024-03-23] MEDS: 0.9% Saline Lock 10 ML Syringe IV (12:05)
[2024-03-23 12:25] LABS: Bedside Glucose 216 mg/dL (74-106)
--- NOTE | 2024-03-23 13:20 | CASEMGMT ---
KELSEY LUDWIG Assessment: Face to Face with pt for initial transition planning/care coordination assessment. KELSEY LUDWIG introduced self and role at [facility], pt voices understanding and consents to assessment. Pt is A&O x4 and answers all questions appropriately at this time. Pt sitting up in bed in no distress. Care providers, pharmacy, and demographics verified/updated. Admitting Dx: Sepsis, UTI, Suspected Pulmonary Embolism PCP: Mabel Specialists: Friend, gastrologist; [facility] Preferred Pharmacy: [facility] Insurance: [facility], Medicaid Prescription Benefit: yes LNOK: Sister Living Arrangements: Pt lives alone in the upper level of a 1 story apartment with 19 steps to enter. ADLs: I with ADLs and IADLs. Transportation: Pt drives self and denies concerns with transportation. DME: Walker, BIPAP, Glucometer and supplies, Pulse Ox, bedside commode, nebulizer. HHC/SNF: Denies Hx of. Pt states no concerns with going home at time of dc. Pt states no further concerns/needs. CM to follow. Advised pt to ask CM if any further question/concerns/needs arise, voices understanding. Pt Goal: Home Plan: Home, will follow plan of care. Laron COLE CM
[2024-03-23 15:33] LABS: Bedside Glucose 266 mg/dL (74-106)
--- NOTE | 2024-03-23 16:05 | CHAPLAIN ---
Type of Pastoral Visit _x__ Initial Visit ___ Follow-up Visit ___ On-call Visit ___ General Patient Visit ___ Spiritual Assessment ___ Family Conference ___ Bereavement ___ Rapid Response ___ Code Blue ___ Other (describe below) Pastoral Care Referral From _x__ Patient ___ Family ___ Nurse ___ Physician ___ Cosmetic Counselor ___ Medical Insurance Verifier ___ Other (describe below) Sacrament/Intervention _x__ Active listening ___ Anointing ___ Tenriism ___ Bereavement ___ Communion ___ Davida exploration ___ ___ Life review ___ Prayer ___ Reconciliation ___ Sacrament of Sick ___ Supportive presence ___ Wedding ___ Other (describe below) Pastoral Comments patient said that Father Camden was just here from [place], that she is getting better, and that since she is wanting the nurse to come back for medications, she will not need further spiritual care support at this time; offer of future support as desired
[2024-03-23 17:07] LABS: Bedside Glucose 250 mg/dL (74-106)
[2024-03-23] MEDS: SimETHICONE 80 MG Chewable Tablet PO (19:58)
[2024-03-23] MEDS: traZODone 100 MG Tablet PO (20:56)
[2024-03-23] MEDS: Sertraline 100 MG Tablet 200 MG PO (20:57)
[2024-03-23] MEDS: ALPRAZolam 0.5 MG Tablet PO (21:12)
[2024-03-23 22:16] LABS: Bedside Glucose 181 mg/dL (74-106)
[2024-03-24 03:05] VITALS: BP 136/74; PULSE 65; RESP 18; TEMP 36.7; O2SAT 97
--- NOTE | 2024-03-24 05:09 | EKG12_ITS ---
Test Reason : CP Blood Pressure : / mmHG Vent. Rate : 072 BPM Atrial Rate : 072 BPM P-R Int : 150 ms QRS Dur : 076 ms QT Int : 426 ms P-R-T Axes : 061 005 007 degrees QTc Int : 466 ms Normal sinus rhythm Normal ECG When compared with ECG of 21-MAR-2024 09:07, MANUAL COMPARISON REQUIRED, DATA IS UNCONFIRMED Confirmed by RODOLFO SUE, CARY ([id number]), title insurance agent ОЛЕГ HINTON ([id number]) on 03/25/2024 10:08:39 AM Referred By: Confirmed By:ELISA REYNOLDS MD
[2024-03-24] MEDS: Acetaminophen 325 MG Tablet 650 MG PO (05:13)
[2024-03-24 06:00] VITALS: PULSE 74; RESP 18
[2024-03-24] MEDS: Budesonide Respules 0.5 MG/2 ML AMPUL.NEB. INHALATION (06:50)
[2024-03-24] MEDS: Albuterol 2.5 MG/3 ML VIAL.NEB. INHALATION (06:50)
[2024-03-24 07:02] VITALS: O2SAT 95
[2024-03-24 07:10] LABS: Bedside Glucose 143 mg/dL (74-106)
--- NOTE | 2024-03-24 07:52 | PN.HOSP_ITS ---
Reason for Visit Reason for Visit: Diagnoses Acidosis, unspecified (03/21/24) Multiple subsegmental pulmonary emboli without acute cor pulmonale (03/21/24) Acute cystitis without hematuria (03/21/24) Hypoxemia (03/21/24) Subjective Subjective Breathing ok. Spencer off when she got up to the bathroom this AM. Went to the bathroom later, used a walker and felt better. Objective Data Objective Data Vital Signs: Vital Signs Temp Pulse Resp BP Pulse Ox O2 Del Method O2 Flow Rate 36.7 C 74 18 136/74 H 97 Room Air 3 03/24/24 03:05 03/24/24 06:00 03/24/24 06:00 03/24/24 03:05 03/24/24 03:05 03/24/24 03:05 03/22/24 14:59 Oxygen Flow Rate (L/min) 3 Oxygen Delivery Method Room Air Weight: 88.7 kg Body Mass Index (BMI) 31.5 Intake & Output: Intake and Output for Last 24 Hours 03/22/24 03/23/24 03/24/24 23:59 23:59 23:59 Intake Total 2350 / 3100 2220 / 2220 Output Total 350 / 350 Balance 2000 / 2750 2220 / 2220 Lab / Micro Data 03/23/24 06:08 03/23/24 06:08 Labs: Laboratory Results - last 24 hr 03/23/24 12:03: POC Glucose 216 H 03/23/24 15:11: POC Glucose 266 H 03/23/24 16:35: POC Glucose 250 H 03/23/24 21:03: POC Glucose 181 H 03/24/24 06:49: POC Glucose 143 H Micro: Microbiology 03/22/24 18:44 Sputum, Expectorated/Coughed Gram Stain - Final 03/21/24 10:21 Blood Culture (Wb) - Arm Right Blood Culture - Preliminary No growth in 48 hours. 03/21/24 10:30 Blood Culture (Wb) - Anticubital Left Blood Culture - Preliminary No growth in 48 hours. 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 No evidence for diastolic dysfunction. Trivial pulmonic valve insufficiency. Ordering Physician: Camden Smith Referring Physician: Susanna Monroe M.D. Performed By: Zuri Briseno [facility] Venous Doppler Study 03/21/24 16:07 Interpretation Summary Deep veins of the bilateral lower extremities are patent and compressible segmentally. There is no evidence of bilateral lower extremity deep vein thrombosis. The bilateral great saphenous veins appear patent and compressible segmentally. Ordering Physician: Camden Smith Referring Physician: Susanna Monroe Performed By: Aditya Lagos, T Chest CTA 03/23/24 08:00 IMPRESSION: Mild bibasilar atelectasis and/or early infiltrate. No evidence of pulmonary embolism. Electronically Signed: Fili Sagastume MD at 9:40 EDT , Physical Exam Const alert and no apparent distress HEENT head/scalp atraumatic and moist oral mucous membranes Resp normal respiratory effort, no retractions and no use of accessory muscles Resp Narrative: crackles LLL. Cardio regular rate, regular rhythm, S1 normal heart sound and S2 normal heart sound GI normal to inspection, nondistended, normoactive bowel sounds, soft to palpation, non-tender and non-distended Extremity normal to inspection and full ROM Neuro Sensorium / Orientation: awake and alert Assessment & Plan Assessment/Plan (1) Hypoxia: (2) Lactic acidosis: (3) UTI (urinary tract infection): QUALIFIERS: Hematuria presence: without hematuria Urinary tract infection type: acute cystitis Qualified Code(s): N30.00 - Acute cystitis without hematuria (4) Pulmonary emboli: QUALIFIERS: Pulmonary embolism type: multiple subsegmental (without acute cor pulmonale) Qualified Code(s): I26.94 - Multiple subsegmental pulmonary emboli without acute cor pulmonale PLAN: Plan Sepsis * Resolved, though was POA: qSOFA of 2. SIRS 3 on admission. * I suspect either due to pneumonia v enteritis (UTI ruled out) * Data: CTA chest personally reviewed and shows questionable LLL infiltrate v abscess. CT a/p shows possible enteritis. Urinalysis shows positive nitrates, but only 5-10 WBC. I doubt UTI. COVID-19, influenza, RSV negative. * Continue Abx with levofloxacin * Strep and Legionella antigens negative. UCx showing <1000 CFUs of GNR--UTI ruled out. BCx pending. Patient does show me that she had a recent urine culture that showed greater than 100,000 Klebsiella in her urine. Did not provide any sensitivities on her MyChart. Through [facility] was able to see the culture that she had had. Showed Klebsiella pneumoniae that was resistant to ampicillin and intermediate to nitrofurantoin. Was sensitive to ciprofloxacin. No sensitivity was performed on levofloxacin but given that she is improved, would continue with levofloxacin. Hypoxia * pt hypoxic in the field with pulse ox in the 80s. Now on 3 liters NC * CTA chest limited, due to artifact and suspicion of pulmonary emboli in the right middle and right lower lobe. Possible LLL infiltrate however. * D-dimer is elevated at 1.56. My clinical suspicion for this being a pulmonary embolism is low. D-dimer could be elevated due to underlying infection. Patient had hematochezia so I do not feel that she needs anticoagulation at this time. Will follow through with the echocardiogram as well as a duplex. Will recheck CT angiogram on the . Patient made aware of the findings of the CAT scan and possibility that there could be pulmonary embolism that her pretest probability was low to begin with. Questionable pulmonary emboli * Ruled out * Patient had low pretest probability of PE other than hypoxia. There is artifact noted on the CAT scan and possible right middle and right lower lobe pulmonary embolism. Patient may be hypoxic due to underlying pneumonia. * Duplex and echocardiogram been ordered. * Patient had been on therapeutic enoxaparin but was held due to hematochezia. * Repeat CT of the chest did not show any pulmonary embolism. Lower GI bleed * Patient stable at this time. * Patient has known history of internal hemorrhoids which have bled and been banded before. * Holding off on anticoagulation due to GI bleed. If persists, check CTA A/P. Consult GI. Chronic conditions: * Hypertension: stable. continue carvedilol lisinopril * Obstructive sleep apnea: CPAP QHS. * DM2: glargine and SSI. * obesity class I: complicates care and recovery. * GERD: PPI * Depression with anxiety: reviewed [place]AR[place], pt does take alprazolam (last filled 03/11/24). Weakness * felt weak this AM. Had previously worked with therapy and did ok with a walker. Walked about 80'. * Patient lives by herself and is agreeable to [facility]. * She already has a walker at home (which she was not using) from her prior knee surgery. VTE prophylaxis: SCDs, holding off on anticoagulation due to GI bleed. Full Code. Discharge home.
[2024-03-24 09:05] VITALS: BP 145/83; PULSE 87; RESP 18; TEMP 36.4; O2SAT 96
[2024-03-24] MEDS: Gabapentin 600 MG Tablet PO (09:17)
[2024-03-24] MEDS: Ursodiol 250 MG Tablet PO (09:17)
[2024-03-24] MEDS: Pantoprazole Sodium 20 MG Tablet PO (09:17)
--- NOTE | 2024-03-24 09:17 | DS.PCM_ITS ---
Providers Date of Admission: 03/21/24 Primary Care Physician: Dr. Susanna Monroe MD Reason For Visit: SEPSIS, UTI, SUSPECTED PULMONARY EMBOLISM Diagnosis Discharge Diagnosis (1) Hypoxia: Status: Acute Code(s): R09.02 - Hypoxemia (2) Lactic acidosis: Status: Acute Code(s): E87.20 - Acidosis, unspecified (3) UTI (urinary tract infection): Status: Acute Code(s): N39.0 - Urinary tract infection, site not specified Qualifiers: Urinary tract infection type: acute cystitis Hematuria presence: w ithout hematuria Qualified Code(s): N30.00 - Acute cystitis without hematuria (4) Pulmonary emboli: Status: Acute Code(s): I26.99 - Other pulmonary embolism without acute cor pulmonale Qualifiers: Pulmonary embolism type: multiple subsegmental (without acute cor pulmonale) Qualified Code(s): I26.94 - Multiple subsegmental pulmonary emboli without acute cor pulmonale Plan Sepsis * Resolved, though was POA: qSOFA of 2. SIRS 3 on admission. * I suspect either due to pneumonia v enteritis (UTI ruled out) * Data: CTA chest personally reviewed and shows questionable LLL infiltrate v abscess. CT a/p shows possible enteritis. Urinalysis shows positive nitrates, but only 5-10 WBC. I doubt UTI. COVID-19, influenza, RSV negative. * Continue Abx with levofloxacin * Strep and Legionella antigens negative. UCx showing <1000 CFUs of GNR--UTI ruled out. BCx pending. Patient does show me that she had a recent urine culture that showed greater than 100,000 Klebsiella in her urine. Did not provide any sensitivities on her MyChart. Through [facility] was able to see the culture that she had had. Showed Klebsiella pneumoniae that was resistant to ampicillin and intermediate to nitrofurantoin. Was sensitive to ciprofloxacin. No sensitivity was performed on levofloxacin but given that she is improved, would continue with levofloxacin. Hypoxia * pt hypoxic in the field with pulse ox in the 80s. Now on 3 liters NC * CTA chest limited, due to artifact and suspicion of pulmonary emboli in the right middle and right lower lobe. Possible LLL infiltrate however. * D-dimer is elevated at 1.56. My clinical suspicion for this being a pulmonary embolism is low. D-dimer could be elevated due to underlying infection. Patient had hematochezia so I do not feel that she needs anticoagulation at this time. Will follow through with the echocardiogram as well as a duplex. Will recheck CT angiogram on the . Patient made aware of the findings of the CAT scan and possibility that there could be pulmonary embolism that her pretest probability was low to begin with. Questionable pulmonary emboli * Ruled out * Patient had low pretest probability of PE other than hypoxia. There is artifact noted on the CAT scan and possible right middle and right lower lobe pulmonary embolism. Patient may be hypoxic due to underlying pneumonia. * Duplex and echocardiogram been ordered. * Patient had been on therapeutic enoxaparin but was held due to hematochezia. * Repeat CT of the chest did not show any pulmonary embolism. Lower GI bleed * Patient stable at this time. * Patient has known history of internal hemorrhoids which have bled and been banded before. * Holding off on anticoagulation due to GI bleed. If persists, check CTA A/P. Consult GI. Chronic conditions: * Hypertension: stable. continue carvedilol lisinopril * Obstructive sleep apnea: CPAP QHS. * DM2: glargine and SSI. * obesity class I: complicates care and recovery. * GERD: PPI * Depression with anxiety: reviewed [place]AR[place], pt does take alprazolam (last filled 03/11/24). Weakness * felt weak this AM. Had previously worked with therapy and did ok with a walker. Walked about 80'. * Patient lives by herself and is agreeable to [facility]. * She already has a walker at home (which she was not using) from her prior knee surgery. VTE prophylaxis: SCDs, holding off on anticoagulation due to GI bleed. Full Code. Discharge home. Medications at Discharge Home Medications gemfibrozil 600 mg tablet 600 mg PO BID Cholestrol 06/13/14 trazodone 100 mg tablet 100 mg PO QHS Mood 06/13/14 alprazolam 0.5 mg tablet 0.5 mg PO QHS ANXIETY 07/30/15 albuterol sulfate 90 mcg/actuation aerosol inhaler (Ventolin HFA) 1 - 2 puff inhalation Q4H PRN PRN Wheezing ##1 08/08/15 buspirone 5 mg tablet 7.5 mg PO BID Mood 07/11/18 metformin 500 mg tablet,extended release 24 hr 500 mg PO BID Diabetes 07/11/18 potassium chloride 10 mEq tablet,extended release(part/cryst) 10 meq PO DAILY Supplement 07/11/18 sertraline 100 mg tablet (Zoloft) 200 mg PO QHS Depress 07/11/18 fluticasone furoate 100 mcg-vilanterol 25 mcg/dose inhalation powder 1 ea IH DAILY Breathing 07/29/19 ipratropium bromide 0.02 % solution for inhalation 2.5 ml inhalation Q6H PRN shortness of breath or wheezing #75 mL 08/21/21 albuterol sulfate 2.5 mg/3 mL (0.083 %) solution for nebulization 2.5 mg inhalation Q4H PRN shortness of breath 11/15/21 cetirizine 10 mg tablet 10 mg PO DAILY PRN ALLERGIES 11/15/21 gabapentin 300 mg capsule (Neurontin) 600 mg PO .COMPLEX neuropathy 11/15/21 ibuprofen 600 mg tablet 600 mg PO Q12H PRN pain 11/15/21 fluticasone propionate 50 mcg/actuation nasal spray,suspension (Allergy Relief (fluticasone)) 2 spray intranasal DAILY 01/04/22 ursodiol 300 mg capsule 300 mg PO BID Gallstone #60 caps 03/26/23 vitamin E mixed 400 unit capsule 800 unit (2 x 400 unit) PO DAILY Supplement #60 caps 03/26/23 glipizide 5 mg tablet 5 mg PO DAILY Diabetes 11/26/23 lisinopril 20 mg tablet 20 mg PO BID bp #60 TABLETS 12/19/23 carvedilol 6.25 mg tablet (Coreg) 6.25 mg PO BID Heart #60 tabs 01/20/24 hydrochlorothiazide 50 mg tablet 50 mg PO DAILY Blood pressuree #30 tabs 01/20/24 pantoprazole 20 mg tablet,delayed release 20 mg PO BID GERD #60 TABLETS 02/10/24 guaifenesin 600 mg tablet, extended release 12 hr (Mucinex) 600 mg PO BID #10 tabs 03/24/24 levofloxacin 750 mg tablet 750 mg PO DAILY #3 tabs 03/24/24 polyethylene glycol 3350 17 gram/dose oral powder (Miralax) 17 g PO DAILY #119 grams 03/24/24 simethicone 80 mg chewable tablet 80 mg PO ACHS PRN Gas #0 tabs 03/24/24 Hospital Course Operations None Procedures None Summary of Care Provided Minutes Spent on Discharge: 35 Hospital Course: Patient presented with generalized weakness and hypoxia. Initially, patient was diagnosed with urinary tract infection, however urinalysis was unremarkable and her urine culture showed less than thousand CFU's of gram-negative radha. Though it is more concerned the patient may have had a pneumonia. Initial CAT scan showed possible pulmonary emboli in the right side but also left lower lobe infiltrate. Patient underwent a repeat CTA of the chest and did not show any pulmonary emboli but also did confirm the left lower lobe infiltrate. Previously, patient did have a urine culture performed through [facility] that I went through [facility] and saw that it was Klebsiella was sensitive to Cipro, was not evaluated for levofloxacin but given her overall improvement, I presume that it is most likely sensitive to levofloxacin. But with her hypoxia I feel that the pneumonia was probably ultimately because of her underlying infection and sepsis. Patient was feeling weak but did okay with therapy with a walker. Patient is okay with going home with a walker. Patient has had hematochezia since she has been here she has known hemorrhoids that have bled. No external hemorrhoids that I can visualize on exam today however. Patient is to follow-up with Dr. Moreno later this week. Patient was advised by Dr. Moreno to use Metamucil or some kind of fiber. Patient said that she tried Metamucil and did not tolerate it well. I recommend that she use MiraLAX. Patient also does complain of some bloating and we did try some simethicone which seemed to helped. Weight / BMI Weight Weight: 88.7 kg Body Mass Index (BMI) 31.5 ABG / Lab / Microbiology Data 03/23/24 06:08 03/23/24 06:08 Laboratory: Laboratory Results - last 24 hr 03/23/24 12:03: POC Glucose 216 H 03/23/24 15:11: POC Glucose 266 H 03/23/24 16:35: POC Glucose 250 H 03/23/24 21:03: POC Glucose 181 H 03/24/24 06:49: POC Glucose 143 H Microbiology: Microbiology 03/22/24 18:44 Sputum, Expectorated/Coughed Gram Stain - Final 03/21/24 10:21 Blood Culture (Wb) - Arm Right Blood Culture - Preliminary No growth in 48 hours. 03/21/24 10:30 Blood Culture (Wb) - Anticubital Left Blood Culture - Preliminary No growth in 48 hours. 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 No evidence for diastolic dysfunction. Trivial pulmonic valve insufficiency. Ordering Physician: Camden Smith Referring Physician: Susanna Monroe M.D. Performed By: Zuri Briseno RDCS Venous Doppler Study 03/21/24 16:07 Interpretation Summary Deep veins of the bilateral lower extremities are patent and compressible segmentally. There is no evidence of bilateral lower extremity deep vein thrombosis. The bilateral great saphenous veins appear patent and compressible segmentally. Ordering Physician: Camden Smith Referring Physician: Susanna Monroe Performed By: Aditya Lagos Radha Chest CTA 03/23/24 08:00 IMPRESSION: Mild bibasilar atelectasis and/or early infiltrate. No evidence of pulmonary embolism. Electronically Signed: Fili Sagastume MD at 9:40 EDT , D/C Instructions Discharge Diet: 2000 Calorie Control Diet Meaningful Use Info Meaningful Use Meaningful Use Diagnoses (Choose all that apply): None applicable Ischemic Stroke Statin Dosing Therapy Reference: STATIN DOSE THERAPY REFERENCE: * Patients > 75 years receive moderate or high dose statin therapy. * Patients 75 years or YOUNGER should receive HIGH intensity statin dose unless contraindicated. You will be required to document reason for non-treatment if statin daily dose does not meet guidelines. HIGH DOSE STATIN THERAPY DAILY Atorvastatin > than or = to 40 mg Rosuvastatin > than or = to 20 mg Amlodipine + Atorvastatin > than or = to 2.5/40 mg Ezetimibe + Simvastatin 10/80 mg Simvastatin 80mg Discharge Plan Admission Admit Date/Time: 03/21/24 15:02 Primary Reason for Your Visit: Pneumonia Attending Provider: Rosendo Gracia Primary Care Provider: Susanna Monroe Consulting Providers: Camden Smith Instructions Additional Instructions / Restrictions: You have a pneumonia and are doing well. Recommend continuing the antibiotics, Levaquin (generic name levofloxacin) until completed. And your urine studies from [facility] showing bacteria which I was able to find would be sensitive to the class of antibiotics that Levaquin is a part of (known as fluoroquinolones). Since you have gotten better out heavy just continue that until completion. Also recommend that since you did not tolerate the Metamucil that try MiraLAX see if that would help with your bowels. And you may also take simethicone with meals and at night for the gas pains that you are having. Discharge Orders/Prescriptions Prescriptions: New levofloxacin 750 mg Tablet 750 mg PO DAILY Qty: 3 0RF simethicone 80 mg Tablet,Chewable 80 mg PO ACHS PRN (Reason: Gas) Qty: 0 0RF polyethylene glycol 3350 [Miralax] 17 gram/dose powder 17 g PO DAILY Qty: 119 0RF guaifenesin [Mucinex] 600 mg tablet extended release 12hr 600 mg PO BID Qty: 10 0RF Continued fluticasone propionate [Allergy Relief (fluticasone)] 50 mcg/actuation spray,suspension 2 spray intranasal DAILY Rx Instructions: administer into each nostril albuterol sulfate 2.5 mg /3 mL (0.083 %) solution for nebulization 2.5 mg inhalation Q4H PRN (Reason: shortness of breath) ibuprofen 600 mg tablet 600 mg PO Q12H PRN (Reason: pain) cetirizine 10 mg tablet 10 mg PO DAILY PRN (Reason: ALLERGIES) lisinopril 20 mg tablet 20 mg PO BID Qty: 60 11RF Patient Comments: 1 TAB DAILY, TAKE 2 TABS IF BP HIGH carvedilol [Coreg] 6.25 mg tablet 6.25 mg PO BID Qty: 60 11RF Rx Instructions: must administer with a meal/food hydrochlorothiazide 50 mg tablet 50 mg PO DAILY Qty: 30 11RF trazodone 100 MG tablet 100 mg PO QHS Patient Comments: Mood/anti-anxiety gemfibrozil 600 MG tablet 600 mg PO BID Patient Comments: Cholesterol alprazolam 0.5 MG tablet 0.5 mg PO QHS Patient Comments: anti-anxiety TAKES 2 TABS OF 0.5MG @ HS albuterol sulfate [Ventolin HFA] 1 INHALER inhaler 1 - 2 puff inhalation Q4H PRN PRN (Reason: Wheezing) Qty: 1 0RF buspirone 5 MG tablet 7.5 mg PO BID Patient Comments: anti-anxiety sertraline [Zoloft] 100 MG tablet 200 mg PO QHS potassium chloride 10 MEQ tablet 10 meq PO DAILY gabapentin [Neurontin] 300 mg capsule 600 mg PO .COMPLEX Rx Instructions: 600 mg PO take 2 caps in the am and 2 caps in the evening; fluticasone furoate-vilanterol 1 EACH blister with device 1 ea IH DAILY ipratropium bromide 0.02 % solution 2.5 ml inhalation Q6H PRN (Reason: shortness of breath or wheezing) Qty: 75 2RF glipizide 5 mg tablet 5 mg PO DAILY Patient Comments: 1 TAB DAILY, IF BG OVER 200 1.5 TABS ursodiol 300 mg capsule 300 mg PO BID Qty: 60 11RF vitamin E mixed 400 unit capsule 800 unit PO DAILY Qty: 60 11RF pantoprazole 20 mg tablet,delayed release (DR/EC) 20 mg PO BID Qty: 60 5RF Held metformin 500 MG tablet 500 mg PO BID Hold Instructions: Resume on 03/28/24. Referrals / Follow Up: Susanna Monroe MD [Primary Care Provider] - Within 2 Weeks León Moreno MD [Med Staff - Active Staff] - 03/27/24 2:50 pm Disposition Disposition (needs filled in before D/C Order can be placed): Home, Self Care Charges/Coding Visit Charges Inpatient E&M: 44942 Disch Hosp >30min
[2024-03-24] MEDS: busPIRone 5 MG Tablet 7.5 MG PO (09:18)
[2024-03-24] MEDS: Lisinopril 20 MG Tablet PO (09:18)
[2024-03-24] MEDS: Carvedilol 6.25 MG Tablet PO (09:18)
[2024-03-24] MEDS: Potassium Chloride Oral Tablet 10 MEQ PO (09:18)
[2024-03-24] MEDS: Insulin Glargine-YFGN 100 UNIT/ML Pen 15 UNIT SC (09:21)
[2024-03-24] MEDS: levoFLOXacin 750 MG Tablet PO (09:21)
[2024-03-24 09:30] VITALS: O2SAT 94; O2SAT 97
--- NOTE | 2024-03-24 10:13 | PHA.DC.MC.R ---
Pharmacy [facility] has performed discharge medication reconciliation and counseling for this patient. The patient's discharge medication list was reviewed for discrepancies and discrepancies were resolved. The patient was counseled on the following discharge medications and changes in medications for homegoing were reviewed. The Reason for Use, instructions for use, and potential side effects were reviewed for all new medications. The patient's questions regarding all of their medications were answered. 1. Guaifenesin 600mg PO BID 2. Levofloxacin 750 mg PO daily x 3 days 3. Miralax 17 grams daily 4. Simethicone 80 mg PO 4x/day PRN gas The patient was able to verbally demonstrate an understanding of their discharge medications. The patient was counselled on new medications by vice president pharmacy Rodríguez. Medications at Discharge Home Medications gemfibrozil 600 mg tablet 600 mg PO BID Cholestrol 06/13/14 trazodone 100 mg tablet 100 mg PO QHS Mood 06/13/14 alprazolam 0.5 mg tablet 0.5 mg PO QHS ANXIETY 07/30/15 albuterol sulfate 90 mcg/actuation aerosol inhaler (Ventolin HFA) 1 - 2 puff inhalation Q4H PRN PRN Wheezing ##1 08/08/15 buspirone 5 mg tablet 7.5 mg PO BID Mood 07/11/18 metformin 500 mg tablet,extended release 24 hr 500 mg PO BID Diabetes 07/11/18 potassium chloride 10 mEq tablet,extended release(part/cryst) 10 meq PO DAILY Supplement 07/11/18 sertraline 100 mg tablet (Zoloft) 200 mg PO QHS mental health 07/11/18 fluticasone furoate 100 mcg-vilanterol 25 mcg/dose inhalation powder 1 ea IH DAILY Breathing 07/29/19 ipratropium bromide 0.02 % solution for inhalation 2.5 ml inhalation Q6H PRN shortness of breath or wheezing #75 mL 08/21/21 albuterol sulfate 2.5 mg/3 mL (0.083 %) solution for nebulization 2.5 mg inhalation Q4H PRN shortness of breath 11/15/21 cetirizine 10 mg tablet 10 mg PO DAILY PRN ALLERGIES 11/15/21 gabapentin 300 mg capsule (Neurontin) 600 mg PO .COMPLEX neuropathy 11/15/21 ibuprofen 600 mg tablet 600 mg PO Q12H PRN pain 11/15/21 fluticasone propionate 50 mcg/actuation nasal spray,suspension (Allergy Relief (fluticasone)) 2 spray intranasal DAILY 01/04/22 ursodiol 300 mg capsule 300 mg PO BID Gallstone #60 caps 03/26/23 vitamin E mixed 400 unit capsule 800 unit (2 x 400 unit) PO DAILY Supplement #60 caps 03/26/23 glipizide 5 mg tablet 5 mg PO DAILY Diabetes 11/26/23 lisinopril 20 mg tablet 20 mg PO BID bp #60 TABLETS 12/19/23 carvedilol 6.25 mg tablet (Coreg) 6.25 mg PO BID Heart #60 tabs 01/20/24 hydrochlorothiazide 50 mg tablet 50 mg PO DAILY Blood pressuree #30 tabs 01/20/24 pantoprazole 20 mg tablet,delayed release 20 mg PO BID GERD #60 TABLETS 02/10/24 guaifenesin 600 mg tablet, extended release 12 hr (Mucinex) 600 mg PO BID #10 tabs 03/24/24 levofloxacin 750 mg tablet 750 mg PO DAILY #3 tabs 03/24/24 polyethylene glycol 3350 17 gram/dose oral powder (Miralax) 17 g PO DAILY #119 grams 03/24/24 simethicone 80 mg chewable tablet 80 mg PO ACHS PRN Gas #0 tabs 03/24/24
--- NOTE | 2024-03-24 10:27 | CASEMGMT ---
Discharge Planning A list of HH providers including quality and resource use data and consistent with the patient's preferred geographic region, medical needs, and insurance network was created in [facility].? This list was provided to the Fabiana Colvin Discharge Planning Asst.
--- NOTE | 2024-03-24 10:40 | CASEMGMT ---
Discharge order noted, RN informed CM that Pt is interested in HHC. Discharge strategy planning consultant provided RN OZIEL list of HHC agencies covered by pt insurance. Pt does not qualify for home O2. RN CM into pt room, pt sitting up in bed in no distress. Discussed HHC VS OP therapy with pt. Pt states I am feeling much better today, I was able to get up and get dressed and get myself ready, I really don't think I need any additional therapy at this time. Pt denies any questions or concerns, pt denies any home going needs at this time.
--- NOTE | 2024-03-24 11:15 | CASEMGMT ---
Social Work As per admitting RN, pt does not have LW/POA and declined further information. LISA Villafana
== END 2024-03-24 11:47 | disposition home or self-care (01) | DRG 871 ==
LOC: ED 14:47 → PCU 15:31
PROVIDERS: Admitting Provider Internal Medicine; Emergency Provider Emergency Medicine; PCP Internal Medicine
DX: A41.9 Sepsis, unspecified organism (principal); J18.9 Pneumonia, unspecified organism; E87.20 Acidosis, unspecified; J44.0 Chronic obstructive pulmonary disease with (acute) lower respiratory infection; E87.1 Hypo-osmolality and hyponatremia; J98.11 Atelectasis; N30.00 Acute cystitis without hematuria; E11.9 Type 2 diabetes mellitus without complications; I10 Essential (primary) hypertension; E78.2 Mixed hyperlipidemia; F41.8 Other specified anxiety disorders; E87.6 Hypokalemia; G47.33 Obstructive sleep apnea (adult) (pediatric); K21.9 Gastro-esophageal reflux disease without esophagitis; K52.9 Noninfective gastroenteritis and colitis, unspecified; E66.9 Obesity, unspecified; Z66 Do not resuscitate; Z79.84 Long term (current) use of oral hypoglycemic drugs; Z79.891 Long term (current) use of opiate analgesic; B96.1 Klebsiella pneumoniae [K. pneumoniae] as the cause of diseases classified elsewhere; Z68.32 Body mass index [BMI] 32.0-32.9, adult
CPT/HCPCS: 36415; 71045; 71275; 74177; 80048; 80076; 81001; 82962; 83605; 83735; 84100; 84484; 85025; 85379; 87040; 87070; 87086; 87088; 87205; 87449; 87631; 93005; 93306; 93970; 94640; 94668; 94762; 97162; 97166; 99252; 99284; 99406; J7030; Q9967; A4216; G0463

== ENCOUNTER 2024-05-08 21:15 | Emergency (ER) | payer MEDICARE, MEDICAID, SELFPAY ==
[2024-05-08 21:16] VITALS: BP 131/88; PULSE 110; RESP 17; TEMP 36.9; O2SAT 98; BMI 30.9
[2024-05-08 21:17] VITALS: BP 131/88; PULSE 108; RESP 16; TEMP 36.9; O2SAT 98
[2024-05-08 21:38] LABS: Bacteria 0 SEEN /hpf (None Seen); Mucous, Urine 0 SEEN /hpf (<or=2+)
[2024-05-08 21:42] LABS: Color, Urine Yellow (Yellow); Glucose, Dipstick Normal (Normal); Ketone-Dipstick Negative (Negative); Leukocyte Esterase-Dipstick 500 /ul (Negative); Nitrite-Dipstick Negative (Negative); Occult Blood-Urine 10 /ul (Negative); Protein-Dipstick 100 mg/dl (Negative); Urine Clarity Sl. Cloudy (Clear); Urine Urobilinogen 1 mg/dl (Normal)
[2024-05-08 21:47] LABS: Urine Bilirubin Dipstick 1 mg/dL (Negative)
[2024-05-08 21:48] LABS: Red Blood Cells-Urine 0-5 SEEN /hpf (0-5); Squamous Epithelial Cells - UA 5-10 SEEN /hpf (5-10); White Blood Cells 10-25 SEEN /hpf (0-5)
[2024-05-08 21:49] LABS: Renal Epithelial Cells 0-5 SEEN /hpf (0-5)
--- NOTE | 2024-05-08 22:13 | CT_ITS ---
INDICATION: severe pelvic pain, ur freq, poss KS EXAMINATION: CT ABDOMEN AND PELVIS WITHOUT CONTRAST - CT Abdomen And Pelvis W/O Contrast Injection TECHNIQUE: Helically acquired images were obtained of the abdomen and pelvis without oral or IV contrast. The protocol utilizes one or more of the following dose reduction techniques: automated exposure control, adjustment of mA and/or kV according to patient size,and/or use of iterative reconstruction technique. IV Contrast dosage and agent: None. Oral contrast: None. RADIATION DOSAGE (If Supplied By Facility): CTDIvol = ( 16.20 ) mGy, DLP = ( 789.36 ) mGycm COMPARISON: FINDINGS: LOWER CHEST: Lung bases are clear. No cardiomegaly or pericardial effusion. LIVER: Homogeneous. No focal mass. GALLBLADDER AND BILIARY TREE: No calcified gallstones. No gallbladder distension or wall edema. No intra- or extrahepatic biliary ductal dilation. PANCREAS: No focal cystic or solid mass. SPLEEN: Normal size without focal cystic or solid mass. ADRENAL GLANDS: No nodules. KIDNEYS AND URETERS: Normal renal size and position. No hydronephrosis. PERITONEUM: No ascites or free air. No other fluid collection. BOWEL: No evidence of acute appendicitis. No stomach or bowel distension. No focal inflammatory change. LYMPH NODES: No enlarged mesenteric or retroperitoneal lymph nodes. VESSELS: Aorta is non-dilated. URINARY BLADDER: There is extensive fat stranding in the pelvis adjacent to the urinary bladder suggesting cystitis. REPRODUCTIVE ORGANS: No pelvic masses. ABDOMINAL WALL: No discrete abdominal or pelvic wall hernia. BONES: No lytic or blastic abnormality. CT/Abdomen/Pelvis without Cont IMPRESSION: There is extensive fat stranding in the pelvis adjacent to the urinary bladder suggesting cystitis. Electronically Signed: Blair Sierra MD at 0:40 EDT ,
--- NOTE | 2024-05-08 22:14 | ED.VIS.GI ---
HPI HPI - GI History of Present Illness Chief Complaint: Complaint Informant: patient Narrative Narrative: Patient is a symptoms for several hours now, she states this started suddenly when she went to urinate tonight, pain throughout her pelvis, some nausea, and sharp stabbing urethral discomfort when she urinates. Also urinating very frequently since this started. She denies any hematuria. She checked her temperature because she felt like maybe she had 1 and it was 99.5. No vomiting. No new pain in her back although she had chronic discomfort in her low back and that is no different right now. No other new symptoms but she was concerned because she states she had a urine infection in March that she let go without a dressing and then she had to be admitted because she was septic. She states these are different symptoms than she has had with urine infections in the past that she knows of. [facility] Medical History Nonalcoholic fatty liver disease Gastroparesis Hemorrhoid Constipation CA19-9 above reference range Exocrine pancreatic insufficiency Elevated lipase Elevated C-reactive protein (CRP) Heartburn Morbid obesity Asthma Tobacco user Benign essential hypertension Family history of aneurysm Wears partial dentures Wears dentures Anxiety Diabetes Bladder disease Dietary restriction History of hiatal hernia Gastric reflux BiPAP (biphasic positive airway pressure) dependence Sleep apnea Smoker Hypertension Cardiology follow-up encounter History of stress test History of echocardiogram Elevated CPK Fatty liver Abdominal pain Diarrhea Hemorrhage of gastrointestinal tract Depression Arthritis Mixed hyperlipidemia Type 2 diabetes mellitus COPD (chronic obstructive pulmonary disease) YARY treated with BiPAP Postoperative anemia Osteoarthritis Anxiety and depression Home Medications ?Medication ?Instructions ?Recorded ?Last Taken ?Type gemfibrozil 600 mg tablet 600 mg PO BID Cholestrol 06/13/14 11/26/23 History trazodone 100 mg tablet 100 mg PO QHS Mood 06/13/14 11/26/23 History alprazolam 0.5 mg tablet 0.5 mg PO QHS ANXIETY 07/30/15 11/27/23 History albuterol sulfate 90 mcg/actuation 1 - 2 puff inhalation Q4H PRN PRN 08/08/15 11/26/23 Rx aerosol inhaler (Ventolin HFA) Wheezing ##1 buspirone 5 mg tablet 7.5 mg PO BID Mood 07/11/18 03/20/24 History metformin 500 mg tablet,extended 500 mg PO BID Diabetes 07/11/18 11/26/23 History release 24 hr potassium chloride 10 mEq 10 meq PO DAILY Supplement 07/11/18 11/26/23 History tablet,extended release(part/cryst) sertraline 100 mg tablet (Zoloft) 200 mg PO QHS mental health 07/11/18 11/27/23 History fluticasone furoate 100 1 ea IH DAILY Breathing 07/29/19 11/27/23 History mcg-vilanterol 25 mcg/dose inhalation powder ipratropium bromide 0.02 % 2.5 ml inhalation Q6H PRN 08/21/21 Unknown Rx solution for inhalation shortness of breath or wheezing #75 mL albuterol sulfate 2.5 mg/3 mL 2.5 mg inhalation Q4H PRN 11/15/21 11/26/23 History (0.083 %) solution for nebulization shortness of breath cetirizine 10 mg tablet 10 mg PO DAILY PRN ALLERGIES 11/15/21 Unknown History gabapentin 300 mg capsule 600 mg PO .COMPLEX neuropathy 11/15/21 11/26/23 History (Neurontin) ibuprofen 600 mg tablet 600 mg PO Q12H PRN pain 11/15/21 Unknown History fluticasone propionate 50 2 spray intranasal DAILY 01/04/22 11/26/23 History mcg/actuation nasal spray,suspension (Allergy Relief (fluticasone)) ursodiol 300 mg capsule 300 mg PO BID Gallstone #60 caps 03/26/23 11/26/23 Rx vitamin E mixed 400 unit capsule 800 unit (2 x 400 unit) PO DAILY 03/26/23 11/26/23 Rx Supplement #60 caps glipizide 5 mg tablet 5 mg PO DAILY Diabetes 11/26/23 11/26/23 History lisinopril 20 mg tablet 20 mg PO BID bp #60 TABLETS 12/19/23 Unknown Rx carvedilol 6.25 mg tablet (Coreg) 6.25 mg PO BID Heart #60 tabs 01/20/24 Unknown Rx pantoprazole 20 mg tablet,delayed 20 mg PO BID GERD #60 TABLETS 02/10/24 Unknown Rx release guaifenesin 600 mg tablet, 600 mg PO BID #10 tabs 03/24/24 Unknown Rx extended release 12 hr (Mucinex) levofloxacin 750 mg tablet 750 mg PO DAILY #3 tabs 03/24/24 Unknown Rx polyethylene glycol 3350 17 17 g PO DAILY #119 grams 03/24/24 Unknown Rx gram/dose oral powder (Miralax) simethicone 80 mg chewable tablet 80 mg PO ACHS PRN Gas #0 tabs 03/24/24 Unknown Rx hydrochlorothiazide 25 mg tablet 25 mg PO DAILY Blood pressuree #90 04/15/24 Unknown Rx tabs ciprofloxacin HCl 500 mg tablet 500 mg PO BID #10 TABLETS 05/09/24 Unknown Rx phenazopyridine 200 mg tablet 200 mg PO TID PRN pain #10 tabs 05/09/24 Unknown Rx (Pyridium) Allergy/AdvReac Type Severity Reaction Status Date / Time Cephalosporins Allergy Intermediate Rash Verified 05/08/24 21:17 hydromorphone (From Dilaudid) Allergy Intermediate Altered Verified 05/08/24 21:17 mental status pseudoephedrine Allergy Intermediate Tachycardia Verified 05/08/24 21:17 egg (eggs) Allergy Mild Diarrhea Verified 05/08/24 21:17 fluoxetine (From Prozac) Allergy Chest Verified 05/08/24 21:17 tightness house dust mite Allergy NEEDS Verified 05/08/24 21:17 FOLLOW-UP hydrocodone (From Vicodin) Allergy Upset Verified 05/08/24 21:17 Stomach Penicillins Allergy Hives Verified 05/08/24 21:17 prednisone AdvReac PT UNABLE Verified 05/08/24 21:17 TO RESPOND-NEEDS F/U Family History Mother Glaucoma Cervical cancer Asthma Father , at 77 Myocardial infarction Cancer Lung, metastatic to bone CAD (coronary artery disease) History of coronary artery bypass surgery Aortic aneurysm and dissection Sister Colon polyp Thyroid disorder Lung cancer Surgical History History of lumbar laminectomy History of bladder suspension procedure Hx of cholecystectomy History of total right knee replacement Hx of tonsillectomy H/O vaginal hysterectomy Tubal ligation status History of back surgery History of appendectomy S/P total knee arthroplasty Social History household members: none housing: apartment Smoking Status: Current every day smoker tobacco type: cigarettes alcohol intake: never substance use type: does not use caffeine: Yes Type: carbonated beverages Number of servings: 2 ROS ROS ED Constitutional Constitutional ED: Reports fever(s) and subjective; Denies chills Eyes Eyes: Denies change in vision or diplopia ENT ENT ED: Denies rhinorrhea or sore throat Cardiovascular Cardiovascular: Denies chest pain or palpitations Respiratory/Chest Respiratory/Chest: Denies cough or dyspnea Gastrointestinal Gastrointestinal: Reports abdominal pain and nausea; Denies diarrhea or vomiting Genitourinary Genitourinary ED: Reports dysuria and urinary frequency; Denies hematuria Musculoskeletal Musculoskeletal: Reports back pain; Denies neck pain Integumentary Denies abscess or rash Neurologic Neurologic: Denies headache(s), paresthesias or weakness Psychiatric Psychiatric: Denies anxiety or suicidal thoughts EXAM Physical Exam Const Vital Signs: 05/08/24 21:16 05/08/24 21:17 05/08/24 23:15 Temperature 98.4 F 98.4 F Temperature Source Oral Oral Pulse Rate 110 H 108 H 102 H Respiratory Rate 17 16 18 Blood Pressure 131/88 H 131/88 H 116/77 Blood Pressure Mean 102 102 90 Pulse Ox 98 98 97 Oxygen Delivery Method Room Air Room Air Room Air Positive well nourished and well developed General Appearance ED: well developed and NAD HEENT Reports moist mucous membranes normocephalic and atraumatic Eyes PERRL and EOMs intact bilaterally Neck full ROM and supple Resp normal respiratory effort and clear to auscultation bilaterally Cardio regular rate, regular rhythm and no murmurs GI non-distended GI Narrative: Tender throughout pelvis more to the right than the left, but including the suprapubic area. No guarding or rebound. No other areas of tenderness. Auscultation: normoactive bowel sounds Palpation: soft Back/Spine no CVA tenderness General Back: other FROM Extremity normal to inspection General Extremety ED: Negative for edema, pulses abnormal or tenderness General Extremity: Negative for edema or pulses abnormal Neuro oriented x3, CN's II-XII intact bilaterally and no sensory deficits noted Sensorium / Orientation: awake and alert Motor Exam: strength 5/5 throughout Psych Mood & Affect: anxious Skin no rashes or lesions noted and no wounds MDM MDM MDM Narrative Medical decision making narrative: Urinalysis reviewed, it is consistent with infection however there are no bacteria, of unknown significance. As I discussed with the patient, UVJ stone is in the differential, I offered CT, blood work, pain and nausea medication. She was amenable, the labs are noted, and I reviewed the CT images and the result which I agree with, it is basically consistent with cystitis and no stone. Patient will be treated with Cipro (patient has reactions to other medications, and there are interactions with Bactrim to several of her medications) am sending urine for culture, and she is also given Azo. Follow-up advised. Patient reassured. There is no clinical suspicion for pyelonephritis at this time. Lab Data Attestation: I reviewed the patient's lab results. Labs: Laboratory Results - last 24 hr 05/08/24 05/08/24 21:27 22:31 WBC 11.3 H RBC 5.08 Hgb 14.4 Hct 41.7 MCV 82.1 MCH 28.3 MCHC 34.5 RDW Std Deviation 41.3 RDW Coeff of Rodrigo 14.0 Plt Count 315 MPV 9.8 Immature Gran % (Auto) 0.400 Neut % (Auto) 47.6 Lymph % (Auto) 43.6 H [place] % (Auto) 6.0 Eos % (Auto) 1.9 Baso % (Auto) 0.5 Absolute Neuts (auto) 5.4 Absolute Lymphs (auto) 4.90 H Nucleated RBC % 0 Sodium 139 Potassium 3.3 L Chloride 104 Carbon Dioxide 28.0 Anion Gap 7 BUN 17 Creatinine 0.75 Estim Creat Clear Calc 85.35 Est GFR (MDRD) Af Amer 100 Est GFR (MDRD) Non-Af 83 BUN/Creatinine Ratio 22.7 H Glucose 152 H Calcium 9.1 Urine Color Yellow Urine Clarity Sl. Cloudy Urine pH 6.0 Ur Specific [place] 1.020 Urine Protein 100 H Urine Glucose (UA) Normal Urine Ketones Negative Urine Occult Blood 10 H Urine Nitrite Negative Urine Bilirubin 1 H Urine Urobilinogen 1 H Ur Leukocyte Esterase 500 H Urine RBC 0-5 SEEN Urine WBC 10-25 SEEN Ur Squamous Epith Cells 5-10 SEEN Ur Renal Epithelial Cell 0-5 SEEN Urine Bacteria 0 SEEN Urine Mucus 0 SEEN Radiography Diagnostic Testing: Clinical Impression(s) from Imaging Studies Abdomen/Pelvis CT 05/08/24 22:13 IMPRESSION: There is extensive fat stranding in the pelvis adjacent to the urinary bladder suggesting cystitis. Electronically Signed: Blair Sierra MD at 0:40 EDT , Discharge Plan Triage Chief Complaint: Complaint ED Provider: Corey Vernon Dx/Rx/DC Orders Clinical Impression: Acute cystitis without hematuria Instructions: ED Cystitis Female Adult Prescriptions: New phenazopyridine [Pyridium] 200 mg tablet 200 mg PO TID PRN (Reason: pain) Qty: 10 0RF ciprofloxacin HCl 500 mg tablet 500 mg PO BID Qty: 10 0RF No Action fluticasone propionate [Allergy Relief (fluticasone)] 50 mcg/actuation spray,suspension 2 spray intranasal DAILY Rx Instructions: administer into each nostril albuterol sulfate 2.5 mg /3 mL (0.083 %) solution for nebulization 2.5 mg inhalation Q4H PRN (Reason: shortness of breath) ibuprofen 600 mg tablet 600 mg PO Q12H PRN (Reason: pain) cetirizine 10 mg tablet 10 mg PO DAILY PRN (Reason: ALLERGIES) lisinopril 20 mg tablet 20 mg PO BID Qty: 60 11RF Patient Comments: 1 TAB DAILY, TAKE 2 TABS IF BP HIGH carvedilol [Coreg] 6.25 mg tablet 6.25 mg PO BID Qty: 60 11RF Rx Instructions: must administer with a meal/food trazodone 100 MG tablet 100 mg PO QHS Patient Comments: Mood/anti-anxiety gemfibrozil 600 MG tablet 600 mg PO BID Patient Comments: Cholesterol alprazolam 0.5 MG tablet 0.5 mg PO QHS Patient Comments: anti-anxiety TAKES 2 TABS OF 0.5MG @ HS albuterol sulfate [Ventolin HFA] 1 INHALER inhaler 1 - 2 puff inhalation Q4H PRN PRN (Reason: Wheezing) Qty: 1 0RF buspirone 5 MG tablet 7.5 mg PO BID Patient Comments: anti-anxiety sertraline [Zoloft] 100 MG tablet 200 mg PO QHS metformin 500 MG tablet 500 mg PO BID potassium chloride 10 MEQ tablet 10 meq PO DAILY gabapentin [Neurontin] 300 mg capsule 600 mg PO .COMPLEX Rx Instructions: 600 mg PO take 2 caps in the am and 2 caps in the evening; fluticasone furoate-vilanterol 1 EACH blister with device 1 ea IH DAILY ipratropium bromide 0.02 % solution 2.5 ml inhalation Q6H PRN (Reason: shortness of breath or wheezing) Qty: 75 2RF glipizide 5 mg tablet 5 mg PO DAILY Patient Comments: 1 TAB DAILY, IF BG OVER 200 1.5 TABS levofloxacin 750 mg Tablet 750 mg PO DAILY Qty: 3 0RF simethicone 80 mg Tablet,Chewable 80 mg PO ACHS PRN (Reason: Gas) Qty: 0 0RF polyethylene glycol 3350 [Miralax] 17 gram/dose powder 17 g PO DAILY Qty: 119 0RF guaifenesin [Mucinex] 600 mg tablet extended release 12hr 600 mg PO BID Qty: 10 0RF ursodiol 300 mg capsule 300 mg PO BID Qty: 60 11RF vitamin E mixed 400 unit capsule 800 unit PO DAILY Qty: 60 11RF pantoprazole 20 mg tablet,delayed release (DR/EC) 20 mg PO BID Qty: 60 5RF hydrochlorothiazide 25 mg tablet 25 mg PO DAILY Qty: 90 3RF Primary Care Provider: Susanna Monroe Referrals: Susanna Monroe MD [Primary Care Provider] - 3-5 Days if not improving Print Language: Belarusian Disposition Disposition: Home, Self Care
[2024-05-08] MEDS: Ketorolac 15 MG/ML Vial 10 MG IV (22:36)
[2024-05-08] MEDS: Ondansetron 4 MG/2 ML Vial IV (22:36)
[2024-05-08 22:38] LABS: Absolute Neutrophil Count 5.4 X10^3/uL (2.0-7.7); Basophil# 0.06 X10^3/uL; Basophil% 0.5 % (0-1); Eosinophil# 0.21 X10^3/uL; Eosinophils% 1.9 % (0-5); Hematocrit 41.7 % (37-47); Hemoglobin 14.4 g/dL (12.0-15.0); Lymphocyte % 43.6 % (19-41); Mean Corp Hgb Conc 34.5 g/dL (32-36); Mean Corpuscular Hgb 28.3 pg (27.0-32.0); Mean Corpuscular Volume 82.1 fL (81-99); Mean Platelet Vol. 9.8 fl (6.2-12.0); Monocyte# 0.68 X10^3/uL; NRBC Flagged by Analyzer 0 % (0-5); Neutrophil # 5.36 X10^3/uL (2.7-7.7); Neutrophil % 47.6 % (47-70); Platelet Count 315 K/mm3 (150-450); RBC Distribution Width SD 41.3 fl (35.1-43.9); Red Blood Count 5.08 M/mm3 (4.2-5.4); White Blood Count 11.3 K/mm3 (4.4-11.0)
[2024-05-08 22:52] LABS: Anion Gap 7 (5-15); BUN 17 mg/dL (7-18); BUN/Creat Ratio 22.7 RATIO (10-20); Calcium,Total 9.1 mg/dL (8.5-10.1); Chloride 104 mmol/L (98-107); Creatinine, Serum 0.75 mg/dL (0.55-1.02); EST Glomerular Filtration Rate 83 mL/min (>60); Est Glom Filt Rate - Afr Amer 100 mL/min (>60); Estimated Creatinine Clearance 85.35 ml/min; Glucose 152 mg/dL (74-106); Potassium 3.3 mmol/L (3.5-5.1); Sodium Level 139 mmol/L (136-145)
[2024-05-08 23:15] VITALS: BP 116/77; PULSE 102; RESP 18; O2SAT 97
[2024-05-09] MEDS: Ciprofloxacin 500 MG Tablet PO (00:58)
[2024-05-09] MEDS: Phenazopyridine 95 MG Tablet 190 MG PO (00:58)
== END 2024-05-09 01:03 | disposition home or self-care (01) ==
PROVIDERS: Emergency Provider Emergency Medicine; PCP Internal Medicine; Visit Provider Emergency Medicine
DX: N30.00 Acute cystitis without hematuria (principal); J44.9 Chronic obstructive pulmonary disease, unspecified; E11.43 Type 2 diabetes mellitus with diabetic autonomic (poly)neuropathy; G47.33 Obstructive sleep apnea (adult) (pediatric)
CPT/HCPCS: 74176; 80048; 81001; 85025; 87086; 87088; 96374; 96375; 99284; A4216; J2405

== ENCOUNTER → 2024-07-02 | Outpatient (CLI) | payer MEDICARE, MEDICAID, SELFPAY ==
--- NOTE | 2024-07-02 08:52 | AAAS_ITS ---
Reason For Study: FAMILY HX AAA, HTN, TOB USE. Aorta Measurements Aorta Doppler Measurements Proximal aorta measures2.15 x 2.13cm. in cross- Peak systolic flow velocities within the proximal sectional axis. aorta measure 77.3 cm/sec. Proximal aorta measures2.16cm. in longitudinal Peak systolic flow velocities within the mid aorta axis. measure 88.3 cm/sec. Mid aorta measures1.97 x 1.70cm. in cross- Peak systolic flow velocities within the distal sectional axis. aorta measure 76.0 cm/sec. Mid aorta measures1.79cm. in longitudinal axis. Distal aorta measures1.64 x 1.47cm. in cross- sectional axis. Distal aorta measures1.44cm. in longitudinal axis. Left Iliac Artery Peak systolic velocity in the left iliac artery measures 79.7 cm/sec. Unable to visualize LT ILLIAC ARTERY for measurements. Right Iliac Artery Peak systolic velocity in the right iliac artery measures 85.8 cm/sec. Unable to visualize RT ILIAC ARTERY accurately for measurements. Procedure Aorta IVC Iliac vasculature or bypass grafts 88241. Technically difficult study. Exam performed in department. VL/AAA Screening Interpretation Summary Aorta patent, normal caliber. Unable to visualize iliac arteries bilateral. Ordering Physician: Rito Sanchez Referring Physician: Susanna Monroe Performed By: Suzanne Hall, AMADO, RVT
--- NOTE | 2024-07-02 08:52 | CDU_ITS ---
Reason For Study: HTN, TOB USE, FAMILY HX AAA Rt. Velocities/BP Lt. Velocities/BP Prox CCA 79.8/20.4 cm/sec. Prox CCA 78.7/28.1 cm/sec. Mid CCA 87.5/27.0 cm/sec. Mid CCA 82.0/28.1 cm/sec. Dist CCA 63.3/14.9 cm/sec. Dist CCA 77.6/21.5 cm/sec. Prox ICA 71.0/19.3 cm/sec. Prox ICA 92.8/31.4 cm/sec. Mid ICA 95.2/39.1 cm/sec. Mid ICA 97.7/33.9 cm/sec. Dist ICA 89.7/38.0 cm/sec. Dist ICA 89.2/38.8 cm/sec. Rt. ICA/CCA = 95.2/87.5=1.1. Lt. ICA/CCA = 97.7/82.0=1.2. Prox ECA 73.2/21.5 cm/sec. Prox ECA 87.5/13.8 cm/sec. Rt. Vert. 53.4/23.7 cm/sec. Lt. Vert. 67.0/25.3 cm/sec. Right Extracranial There is homogeneous, smooth atherosclerotic plaque noted in the right common carotid artery. There is heterogeneous, irregular atherosclerotic plaque noted in the right internal carotid artery. There is intimal thickening but no significant atherosclerotic plaque noted in the right external carotid artery. Antegrade flow is noted in the right vertebral artery. Left Extracranial There is intimal thickening but no significant atherosclerotic plaque noted in the left common carotid artery. There is heterogeneous, irregular atherosclerotic plaque noted in the left internal carotid artery. There is intimal thickening but no significant atherosclerotic plaque noted in the left external carotid artery. Antegrade flow is noted in the left vertebral artery. Procedure Carotid Duplex 14230. This is a Carotid Duplex examination using B-mode, color flow and specral Doppler. Exam performed in department. VL/Carotid Duplex Ultrasound Interpretation Summary Mild (<50%) stenosis right extracranial internal carotid. Mild (<50%) stenosis left extracranial internal carotid. Patent and antegrade vertebrals bilaterally. Ordering Physician: Rito Sanchez Referring Physician: Susanna Monroe Performed By: Suzanne Hall, AMADO, RVT
== END | disposition home or self-care (01) ==
LOC: CVS 08:52
PROVIDERS: PCP Internal Medicine; Referring Provider Nurse Practitioner Family; Visit Provider Nurse Practitioner Family
DX: I65.22 Occlusion and stenosis of left carotid artery (principal); Z72.0 Tobacco use; Z82.49 Family history of ischemic heart disease and other diseases of the circulatory system
CPT/HCPCS: 76706; 93880

== ENCOUNTER 2024-08-02 05:45 | Inpatient (IN) | payer MEDICARE, MEDICAID, SELFPAY ==
[2024-08-02] VITALS (20 sets, daily range): BP systolic 78–126; BP diastolic 47–81; PULSE 88–111; RESP 15–26; TEMP 36.6–37.6; O2SAT 87–98; BMI 31.5; BMI 31.6
[2024-08-02] MEDS: Albuterol 2.5 MG/3 ML VIAL.NEB. INHALATION ×2 (06:03→20:23)
[2024-08-02 06:13] LABS: Absolute Lymphocyte Count 0.96 X10^3/uL (0.83-4.51); Absolute Neutrophil Count 18.7 X10^3/uL (2.0-7.7); Basophil# 0.04 X10^3/uL; Basophil% 0.2 % (0-1); Eosinophil# 0.06 X10^3/uL; Eosinophils% 0.3 % (0-5); Hematocrit 43.8 % (37-47); Hemoglobin 15.3 g/dL (12.0-15.0); Lymphocyte # 0.96 X10^3/ul (0.83-4.51); Lymphocyte % 4.6 % (19-41); Mean Corp Hgb Conc 34.9 g/dL (32-36); Mean Corpuscular Hgb 29.5 pg (27.0-32.0); Mean Corpuscular Volume 84.4 fL (81-99); Mean Platelet Vol. 9.9 fl (6.2-12.0); Monocyte# 0.81 X10^3/uL; Monocyte% 3.9 % (0-10); NRBC Flagged by Analyzer 0 % (0-5); Neutrophil # 18.71 X10^3/uL (2.7-7.7); Neutrophil % 90.3 % (47-70); Platelet Count 296 K/mm3 (150-450); RBC Distribution Width CV 13.2 % (11.6-14.6); RBC Distribution Width SD 40.8 fl (35.1-43.9); Red Blood Count 5.19 M/mm3 (4.2-5.4); White Blood Count 20.7 K/mm3 (4.4-11.0)
[2024-08-02 06:29] LABS: Anion Gap 11 (5-15); BUN 26 mg/dL (7-18); BUN/Creat Ratio 19.4 RATIO (10-20); Calcium,Total 9.1 mg/dL (8.5-10.1); Chloride 103 mmol/L (98-107); Creatinine, Serum 1.34 mg/dL (0.55-1.02); EST Glomerular Filtration Rate 42 mL/min (>60); Est Glom Filt Rate - Afr Amer 51 mL/min (>60); Estimated Creatinine Clearance 47.55 ml/min; Glucose 207 mg/dL (74-106); Potassium 3.8 mmol/L (3.5-5.1); Sodium Level 135 mmol/L (136-145)
[2024-08-02] MEDS: 0.9% Normal Saline (1000mL) 1,000 ML 1000 ML IV (06:42)
[2024-08-02] MEDS: levoFLOXacin IV 750 MG/150 ML BAG 100 MG IV (06:58)
[2024-08-02 07:01] LABS: Blood Gas Specimen Type VEN; O2 Delivery Device Not entered; SITE Not entered; VBG BASE EXCESS -5 mmol/L (-1.0-3.5); VBG Bicarbonate 21 mmol/L (22-26); VBG PO2 41 mmHg (25-40); VBG SO2 73 % (50-70); VBG TCO2 23 mmol/L (23-33); VBG pCO2 40.1 mmHg (41-51); VBG pH 7.34 (7.32-7.42)
[2024-08-02 07:09] LABS: Bacteria 0 SEEN /hpf (None Seen); Mucous, Urine 0 SEEN /hpf (<or=2+); Red Blood Cells-Urine 0 SEEN /hpf (0-5)
[2024-08-02 07:14] LABS: Color, Urine Yellow (Yellow); Glucose, Dipstick Normal (Normal); Ketone-Dipstick Negative (Negative); Leukocyte Esterase-Dipstick 500 /ul (Negative); Nitrite-Dipstick Negative (Negative); Occult Blood-Urine Negative /ul (Negative); Protein-Dipstick 15 mg/dl (Negative); Specific Gravity, Urine 1.015 (1.002-1.030); Urine Bilirubin Dipstick Negative (Negative); Urine Clarity Clear (Clear); Urine Urobilinogen Normal (Normal)
[2024-08-02 07:26] LABS: Lactic Acid 3.3 mmol/L (0.4-1.9)
[2024-08-02 07:49] LABS: Squamous Epithelial Cells - UA 5-10 SEEN /hpf (5-10); White Blood Cells 5-10 SEEN /hpf (0-5)
[2024-08-02] MEDS: 0.9% Normal Saline (1000mL) 1,000 ML 999 ML IV ×2 (08:20→09:20)
[2024-08-02 10:38] LABS: Reflex Lactate? Y
[2024-08-02 11:14] LABS: Lactic Acid 1.7 mmol/L (0.4-1.9)
[2024-08-02] MEDS: 0.9% Normal Saline (1000mL) 1,000 ML 100 ML IV (12:44)
[2024-08-02] MEDS: Acetaminophen 325 MG Tablet 650 MG PO (13:15)
[2024-08-02] MEDS: Insulin Lispro 100 UNIT/ML INSULN.PEN SC ×2 (16:50→21:02)
[2024-08-02 17:16] LABS: Bedside Glucose 170 mg/dL (74-106)
[2024-08-02] MEDS: ALPRAZolam 0.5 MG Tablet PO (19:36)
[2024-08-02] MEDS: Ibuprofen 400 MG Tablet PO (19:36)
[2024-08-02] MEDS: Budesonide Respules 0.5 MG/2 ML AMPUL.NEB. INHALATION (20:23)
[2024-08-02] MEDS: traZODone 100 MG Tablet PO (20:54)
[2024-08-02] MEDS: Gabapentin 600 MG Tablet PO (20:54)
[2024-08-02] MEDS: Sertraline 100 MG Tablet 200 MG PO (20:55)
[2024-08-02] MEDS: Gemfibrozil 600 MG Tablet PO (20:55)
[2024-08-02] MEDS: busPIRone 5 MG Tablet 7.5 MG PO (20:55)
[2024-08-02] MEDS: Pantoprazole Sodium 20 MG Tablet PO (20:56)
[2024-08-02 22:05] LABS: Bedside Glucose 186 mg/dL (74-106)
[2024-08-03] VITALS (7 sets, daily range): BP systolic 100–143; BP diastolic 77–93; PULSE 82–93; RESP 16–20; TEMP 36.5–36.9; O2SAT 92–97; BMI 32.8
[2024-08-03] MEDS: Insulin Lispro 100 UNIT/ML INSULN.PEN SC ×4 (06:28→21:26)
[2024-08-03] MEDS: Acetaminophen 325 MG Tablet 650 MG PO ×2 (06:28→15:46)
[2024-08-03 06:29] LABS: Absolute Neutrophil Count 3.4 X10^3/uL (2.0-7.7); Basophil# 0.01 X10^3/uL; Basophil% 0.2 % (0-1); Eosinophil# 0.22 X10^3/uL; Eosinophils% 3.4 % (0-5); Hematocrit 36.3 % (37-47); Hemoglobin 12.4 g/dL (12.0-15.0); Lymphocyte % 36.8 % (19-41); Mean Corp Hgb Conc 34.2 g/dL (32-36); Mean Corpuscular Hgb 29.5 pg (27.0-32.0); Mean Corpuscular Volume 86.2 fL (81-99); Monocyte# 0.44 X10^3/uL; Monocyte% 6.7 % (0-10); NRBC Flagged by Analyzer 0 % (0-5); Neutrophil # 3.43 X10^3/uL (2.7-7.7); Neutrophil % 52.4 % (47-70); Platelet Count 221 K/mm3 (150-450); RBC Distribution Width CV 13.5 % (11.6-14.6); RBC Distribution Width SD 41.8 fl (35.1-43.9); Red Blood Count 4.21 M/mm3 (4.2-5.4); White Blood Count 6.5 K/mm3 (4.4-11.0)
[2024-08-03 06:44] LABS: Bedside Glucose 152 mg/dL (74-106)
[2024-08-03] MEDS: Budesonide Respules 0.5 MG/2 ML AMPUL.NEB. INHALATION ×2 (06:54→19:31)
[2024-08-03] MEDS: Albuterol 2.5 MG/3 ML VIAL.NEB. INHALATION ×3 (06:54→19:31)
[2024-08-03 06:57] LABS: Anion Gap 5 (5-15); BUN 14 mg/dL (7-18); BUN/Creat Ratio 23.6 RATIO (10-20); Calcium,Total 8.2 mg/dL (8.5-10.1); Chloride 112 mmol/L (98-107); Creatinine, Serum 0.59 mg/dL (0.55-1.02); EST Glomerular Filtration Rate 109 mL/min (>60); Est Glom Filt Rate - Afr Amer 131 mL/min (>60); Estimated Creatinine Clearance 110.31 ml/min; Glucose 168 mg/dL (74-106); Potassium 3.4 mmol/L (3.5-5.1); Sodium Level 141 mmol/L (136-145)
[2024-08-03] MEDS: Gabapentin 600 MG Tablet PO ×2 (08:04→21:28)
[2024-08-03] MEDS: Gemfibrozil 600 MG Tablet PO ×2 (08:05→21:26)
[2024-08-03] MEDS: Pantoprazole Sodium 20 MG Tablet PO ×2 (08:06→21:28)
[2024-08-03] MEDS: busPIRone 5 MG Tablet 7.5 MG PO ×2 (08:06→21:25)
[2024-08-03] MEDS: Enoxaparin 40 MG/0.4 ML Syringe SC (08:07)
[2024-08-03] MEDS: Potassium Chloride Oral Tablet 20 MEQ 40 MEQ PO (08:39)
[2024-08-03 11:26] LABS: Bedside Glucose 283 mg/dL (74-106)
[2024-08-03 16:19] LABS: Bedside Glucose 190 mg/dL (74-106)
[2024-08-03] MEDS: Ibuprofen 600 MG Tablet PO (18:18)
[2024-08-03] MEDS: oxyCODONE 5 MG Tablet PO (18:51)
[2024-08-03] MEDS: traZODone 100 MG Tablet PO (21:26)
[2024-08-03] MEDS: ALPRAZolam 0.5 MG Tablet PO (21:28)
[2024-08-03] MEDS: Sertraline 100 MG Tablet 200 MG PO (21:28)
[2024-08-03 22:38] LABS: Bedside Glucose 202 mg/dL (74-106)
[2024-08-04] VITALS (8 sets, daily range): BP systolic 122–163; BP diastolic 64–102; PULSE 68–88; RESP 16–20; TEMP 36.3–37; O2SAT 94–98; BMI 32.9
[2024-08-04 06:37] LABS: Bedside Glucose 142 mg/dL (74-106)
[2024-08-04 06:40] LABS: Absolute Lymphocyte Count 2.71 X10^3/uL (0.83-4.51); Absolute Neutrophil Count 2.7 X10^3/uL (2.0-7.7); Basophil# 0.02 X10^3/uL; Basophil% 0.3 % (0-1); Eosinophil# 0.37 X10^3/uL; Eosinophils% 5.9 % (0-5); Hemoglobin 12.3 g/dL (12.0-15.0); Lymphocyte # 2.71 X10^3/ul (0.83-4.51); Lymphocyte % 43.6 % (19-41); Mean Corp Hgb Conc 34.2 g/dL (32-36); Mean Corpuscular Hgb 29.3 pg (27.0-32.0); Mean Corpuscular Volume 85.7 fL (81-99); Mean Platelet Vol. 10.4 fl (6.2-12.0); Monocyte# 0.39 X10^3/uL; Monocyte% 6.3 % (0-10); NRBC Flagged by Analyzer 0 % (0-5); Neutrophil # 2.71 X10^3/uL (2.7-7.7); Neutrophil % 43.6 % (47-70); Platelet Count 251 K/mm3 (150-450); RBC Distribution Width CV 13.2 % (11.6-14.6); RBC Distribution Width SD 41.1 fl (35.1-43.9); White Blood Count 6.2 K/mm3 (4.4-11.0)
[2024-08-04 06:46] LABS: Anion Gap 5 (5-15); BUN 8 mg/dL (7-18); Calcium,Total 8.3 mg/dL (8.5-10.1); Chloride 112 mmol/L (98-107); EST Glomerular Filtration Rate 132 mL/min (>60); Est Glom Filt Rate - Afr Amer 159 mL/min (>60); Estimated Creatinine Clearance 130.24 ml/min; Glucose 164 mg/dL (74-106); Potassium 3.6 mmol/L (3.5-5.1); Sodium Level 140 mmol/L (136-145)
[2024-08-04] MEDS: Budesonide Respules 0.5 MG/2 ML AMPUL.NEB. INHALATION ×2 (06:56→19:24)
[2024-08-04] MEDS: Albuterol 2.5 MG/3 ML VIAL.NEB. INHALATION ×3 (06:56→19:24)
[2024-08-04] MEDS: busPIRone 5 MG Tablet 7.5 MG PO ×2 (10:04→20:44)
[2024-08-04] MEDS: Gemfibrozil 600 MG Tablet PO ×2 (10:05→20:44)
[2024-08-04] MEDS: Enoxaparin 40 MG/0.4 ML Syringe SC (10:05)
[2024-08-04] MEDS: Pantoprazole Sodium 20 MG Tablet PO ×2 (10:06→20:45)
[2024-08-04] MEDS: Ibuprofen 600 MG Tablet PO ×2 (10:11→20:44)
[2024-08-04] MEDS: Gabapentin 600 MG Tablet PO ×2 (10:12→20:44)
[2024-08-04] MEDS: Carvedilol 6.25 MG Tablet PO ×2 (10:12→20:45)
[2024-08-04] MEDS: 0.9% Saline Lock 10 ML Syringe IV (10:12)
[2024-08-04] MEDS: Lisinopril 20 MG Tablet PO (10:12)
[2024-08-04] MEDS: VIAFLEX IV (10:36)
[2024-08-04] MEDS: LEVOFLOXACIN IV (10:36)
[2024-08-04] MEDS: Insulin Lispro 100 UNIT/ML INSULN.PEN SC ×3 (11:07→20:52)
[2024-08-04 11:28] LABS: Bedside Glucose 207 mg/dL (74-106)
[2024-08-04 16:47] LABS: Bedside Glucose 151 mg/dL (74-106)
[2024-08-04] MEDS: Sertraline 100 MG Tablet 200 MG PO (20:44)
[2024-08-04] MEDS: ALPRAZolam 0.5 MG Tablet PO (20:45)
[2024-08-04] MEDS: traZODone 100 MG Tablet PO (20:45)
[2024-08-04 21:12] LABS: Bedside Glucose 157 mg/dL (74-106)
[2024-08-05 03:05] VITALS: BMI 32.8
[2024-08-05 04:00] VITALS: BP 135/85; PULSE 76; RESP 18; TEMP 36; O2SAT 92
[2024-08-05] MEDS: Insulin Lispro 100 UNIT/ML INSULN.PEN SC ×2 (06:08→11:25)
[2024-08-05 06:22] LABS: Bedside Glucose 154 mg/dL (74-106)
[2024-08-05 06:41] VITALS: PULSE 82; RESP 20; O2SAT 96
[2024-08-05] MEDS: Albuterol 2.5 MG/3 ML VIAL.NEB. INHALATION (06:41)
[2024-08-05] MEDS: Budesonide Respules 0.5 MG/2 ML AMPUL.NEB. INHALATION (06:41)
[2024-08-05 09:54] VITALS: BP 137/87; PULSE 84; RESP 18; TEMP 35.8; O2SAT 95
[2024-08-05] MEDS: Enoxaparin 40 MG/0.4 ML Syringe SC (09:56)
[2024-08-05] MEDS: Ibuprofen 600 MG Tablet PO (09:56)
[2024-08-05] MEDS: busPIRone 5 MG Tablet 7.5 MG PO (09:56)
[2024-08-05] MEDS: Carvedilol 6.25 MG Tablet PO (09:56)
[2024-08-05] MEDS: Gemfibrozil 600 MG Tablet PO (09:56)
[2024-08-05] MEDS: Pantoprazole Sodium 20 MG Tablet PO (09:57)
[2024-08-05] MEDS: Lisinopril 20 MG Tablet PO (09:57)
[2024-08-05] MEDS: Gabapentin 600 MG Tablet PO (10:04)
[2024-08-05] MEDS: 0.9% Saline Lock 10 ML Syringe IV (10:09)
[2024-08-05] MEDS: LEVOFLOXACIN IV (10:09)
[2024-08-05] MEDS: VIAFLEX IV (10:09)
[2024-08-05 10:41] VITALS: BP 137/87; PULSE 84; RESP 18; TEMP 35.8; O2SAT 95
[2024-08-05 11:45] LABS: Bedside Glucose 189 mg/dL (74-106)
== END 2024-08-05 13:48 | disposition home or self-care (01) | DRG 872 ==
LOC: ED 10:58 → PCU 12:04
PROVIDERS: Admitting Provider Internal Medicine; Emergency Provider Emergency Medicine; PCP Internal Medicine; Visit Provider Family Medicine
DX: A41.9 Sepsis, unspecified organism (principal); N17.9 Acute kidney failure, unspecified; J44.9 Chronic obstructive pulmonary disease, unspecified; E11.43 Type 2 diabetes mellitus with diabetic autonomic (poly)neuropathy; F32.A Depression, unspecified; I10 Essential (primary) hypertension; F17.210 Nicotine dependence, cigarettes, uncomplicated; K52.9 Noninfective gastroenteritis and colitis, unspecified; K21.9 Gastro-esophageal reflux disease without esophagitis; G47.33 Obstructive sleep apnea (adult) (pediatric); F41.9 Anxiety disorder, unspecified; Z79.84 Long term (current) use of oral hypoglycemic drugs; Z79.51 Long term (current) use of inhaled steroids; Z79.899 Other long term (current) drug therapy
CPT/HCPCS: 36415; 51702; 71045; 80048; 81001; 82803; 82962; 83605; 85025; 87040; 87070; 87086; 87205; 87493; 87506; 87631; 87633; 93005; 94640; 94668; 94762; 99285; J7030; A4216

== ENCOUNTER 2024-08-05 20:07 | Emergency (ER) | payer MEDICARE, MEDICAID, SELFPAY ==
[2024-08-05] VITALS (7 sets, daily range): BP systolic 141–166; BP diastolic 70–102; PULSE 80–92; RESP 16–21; TEMP 36.9–37.7; O2SAT 94–98; BMI 34.3
--- NOTE | 2024-08-05 21:31 | CT_ITS ---
INDICATION: sob, high risk PE, fever EXAMINATION: CTA CHEST WITH CONTRAST AND CT ABDOMEN/PELVIS WITH CONTRAST TECHNIQUE: Helically acquired images were obtained of the chest following IV contrast timed in the pulmonary arterial phase with sagittal and coronal reconstructed images. Post-processing of the angiographic images was performed with multiplanar reformation and 3D reconstruction. Helically acquired images were obtained of the abdomen and pelvis with sagittal and coronal reconstructed images. Individualized dose optimization techniques were used for this CT. IV contrast dosage and agent: 100 mL of Isovue-370. COMPARISON: 05/08/2024 CT abdomen/pelvis and 03/23/2024 CTA chest. FINDINGS: CTA CHEST: LUNGS, PLEURA AND LARGE AIRWAYS: Mild centrilobular emphysematous changes. Scattered bilateral airspace opacities. No pulmonary nodule. Trace bilateral pleural effusions. No pneumothorax. THYROID: Unremarkable. HEART AND PERICARDIUM: Coronary artery calcifications are present. No pericardial effusion. No evidence of right heart strain. Right ventricle to left ventricle ratio measures less than 1. MEDIASTINUM AND MATTHEW: No mediastinal or hilar adenopathy. Esophagus is unremarkable. Small hiatal hernia. VESSELS: No pulmonary embolism. Thoracic aorta is unremarkable. BONES: No acute abnormality. CT ABDOMEN/PELVIS: VESSELS: No aortic aneurysm or dissection. LIVER: No evidence of a mass. No intrahepatic or extrahepatic biliary duct dilation. GALLBLADDER: Status post cholecystectomy. PANCREAS: No focal solid or cystic mass. No evidence of pancreatitis. SPLEEN: Normal. ADRENAL GLANDS: Normal. KIDNEYS AND URETERS: No urinary tract stone. No hydronephrosis or hydroureter. No significant asymmetric perinephric stranding. URINARY BLADDER: Unremarkable. BOWEL: No evidence of diverticulosis or diverticulitis. Appendix not identified. Dilated small bowel in the lower abdomen and pelvis measuring up to 3.3 cm in diameter. REPRODUCTIVE ORGANS: No evidence of a pelvic mass. PERITONEUM: No intraabdominal free fluid or free air. LYMPH NODES: No pathologically enlarged mesenteric or retroperitoneal lymph nodes. ABDOMINAL WALL: No abdominal or pelvic wall hernia. BONES: No acute abnormality. CT/CTA Chest W/WO Contrast IMPRESSION: 1. No pulmonary embolism. 2. No thoracic or abdominal aortic aneurysm or dissection. 3. Scattered bilateral airspace opacities consistent with pneumonia. 4. Trace bilateral pleural effusions. 5. Dilated small bowel in the lower abdomen and pelvis measuring up to 3.3 cm in diameter which may represent early small bowel obstruction. Electronically Signed: Felipe Baker DO at 23:39 EST ,
--- NOTE | 2024-08-05 21:32 | CT_ITS ---
INDICATION: fever, dysuria EXAMINATION: CTA CHEST WITH CONTRAST AND CT ABDOMEN/PELVIS WITH CONTRAST TECHNIQUE: Helically acquired images were obtained of the chest following IV contrast timed in the pulmonary arterial phase with sagittal and coronal reconstructed images. Post-processing of the angiographic images was performed with multiplanar reformation and 3D reconstruction. Helically acquired images were obtained of the abdomen and pelvis with sagittal and coronal reconstructed images. Individualized dose optimization techniques were used for this CT. IV contrast dosage and agent: 100 mL of Isovue-370. COMPARISON: 05/08/2024 CT abdomen/pelvis and 03/23/2024 CTA chest. FINDINGS: CTA CHEST: LUNGS, PLEURA AND LARGE AIRWAYS: Mild centrilobular emphysematous changes. Scattered bilateral airspace opacities. No pulmonary nodule. Trace bilateral pleural effusions. No pneumothorax. THYROID: Unremarkable. HEART AND PERICARDIUM: Coronary artery calcifications are present. No pericardial effusion. No evidence of right heart strain. Right ventricle to left ventricle ratio measures less than 1. MEDIASTINUM AND MATTHEW: No mediastinal or hilar adenopathy. Esophagus is unremarkable. Small hiatal hernia. VESSELS: No pulmonary embolism. Thoracic aorta is unremarkable. BONES: No acute abnormality. CT ABDOMEN/PELVIS: VESSELS: No aortic aneurysm or dissection. LIVER: No evidence of a mass. No intrahepatic or extrahepatic biliary duct dilation. GALLBLADDER: Status post cholecystectomy. PANCREAS: No focal solid or cystic mass. No evidence of pancreatitis. SPLEEN: Normal. ADRENAL GLANDS: Normal. KIDNEYS AND URETERS: No urinary tract stone. No hydronephrosis or hydroureter. No significant asymmetric perinephric stranding. URINARY BLADDER: Unremarkable. BOWEL: No evidence of diverticulosis or diverticulitis. Appendix not identified. Dilated small bowel in the lower abdomen and pelvis measuring up to 3.3 cm in diameter. REPRODUCTIVE ORGANS: No evidence of a pelvic mass. PERITONEUM: No intraabdominal free fluid or free air. LYMPH NODES: No pathologically enlarged mesenteric or retroperitoneal lymph nodes. ABDOMINAL WALL: No abdominal or pelvic wall hernia. BONES: No acute abnormality. CT/Abdomen/Pelvis W IV Cont ONLY IMPRESSION: 1. No pulmonary embolism. 2. No thoracic or abdominal aortic aneurysm or dissection. 3. Scattered bilateral airspace opacities consistent with pneumonia. 4. Trace bilateral pleural effusions. 5. Dilated small bowel in the lower abdomen and pelvis measuring up to 3.3 cm in diameter which may represent early small bowel obstruction. Electronically Signed: Felipe Baker DO at 23:38 EST ,
[2024-08-05] MEDS: LORazepam 2 MG/ML Syringe 0.5 MG IV (21:38)
[2024-08-05] MEDS: Ipratropium/Albuterol Sulfate 3 ML AMPUL.NEB INHALATION (21:38)
[2024-08-05 21:54] LABS: Absolute Lymphocyte Count 3.21 X10^3/uL (0.83-4.51); Absolute Neutrophil Count 7.1 X10^3/uL (2.0-7.7); Basophil# 0.05 X10^3/uL; Basophil% 0.4 % (0-1); Eosinophil# 0.65 X10^3/uL; Eosinophils% 5.5 % (0-5); Hematocrit 35.9 % (37-47); Hemoglobin 12.6 g/dL (12.0-15.0); Lymphocyte # 3.21 X10^3/ul (0.83-4.51); Lymphocyte % 27.2 % (19-41); Mean Corp Hgb Conc 35.1 g/dL (32-36); Mean Corpuscular Hgb 29.6 pg (27.0-32.0); Mean Corpuscular Volume 84.5 fL (81-99); Mean Platelet Vol. 10.2 fl (6.2-12.0); Monocyte# 0.75 X10^3/uL; Monocyte% 6.4 % (0-10); NRBC Flagged by Analyzer 0 % (0-5); Neutrophil % 60.1 % (47-70); Platelet Count 288 K/mm3 (150-450); RBC Distribution Width CV 13.2 % (11.6-14.6); RBC Distribution Width SD 40.8 fl (35.1-43.9); Red Blood Count 4.25 M/mm3 (4.2-5.4); White Blood Count 11.8 K/mm3 (4.4-11.0)
[2024-08-05 22:16] LABS: Bacteria 0 SEEN /hpf (None Seen); White Blood Cells 0 SEEN /hpf (0-5)
[2024-08-05 22:18] LABS: Color, Urine Yellow (Yellow); Glucose, Dipstick Normal (Normal); Ketone-Dipstick Negative (Negative); Leukocyte Esterase-Dipstick Negative /ul (Negative); Nitrite-Dipstick Negative (Negative); Occult Blood-Urine 25 /ul (Negative); Protein-Dipstick 15 mg/dl (Negative); Specific Gravity, Urine 1.015 (1.002-1.030); Urine Bilirubin Dipstick Negative (Negative); Urine Clarity Clear (Clear); Urine Urobilinogen 1 mg/dl (Normal)
[2024-08-05 22:28] LABS: Lactic Acid 0.9 mmol/L (0.4-1.9)
[2024-08-05 22:30] LABS: ALB/GLOB Ratio 0.9 RATIO (0.9-2.4); AST(SGOT) 19 U/L (15-37); Alanine Aminotransfer ALT/SGPT 16 U/L (13-56); Albumin, Serum 3.3 g/dL (3.2-5.0); Alkaline Phosphatase 60 U/L (45-117); Anion Gap 8 (5-15); BUN 13 mg/dL (7-18); BUN/Creat Ratio 21.8 RATIO (10-20); Calcium,Total 8.5 mg/dL (8.5-10.1); Chloride 107 mmol/L (98-107); EST Glomerular Filtration Rate 108 mL/min (>60); Est Glom Filt Rate - Afr Amer 130 mL/min (>60); Estimated Creatinine Clearance 103.39 ml/min; Globulin 3.7 g/dL (2.2-4.2); Glucose 146 mg/dL (74-106); Potassium 3.3 mmol/L (3.5-5.1); Sodium Level 138 mmol/L (136-145); Troponin-I HS 3 pg/mL (3.0-54.0)
[2024-08-05 22:33] LABS: Red Blood Cells-Urine 0-5 SEEN /hpf (0-5); Squamous Epithelial Cells - UA 0-5 SEEN /hpf (5-10)
[2024-08-05 22:34] LABS: Mucous, Urine RARE /hpf (<or=2+)
[2024-08-05] MEDS: Acetaminophen 325 MG Tablet 650 MG PO (23:22)
[2024-08-05] MEDS: LORazepam 2 MG/ML Syringe 1 MG IV (23:23)
--- NOTE | 2024-08-05 23:27 | EX.ED.DYSGE1 ---
HPI History of Present Illness Chief Complaint: Shortness of Breath Informant: patient Narrative Narrative: Patient is a 64-year-old female with history tobacco use, hypertension, GERD, neuropathy, type 2 diabetes mellitus, YARY and COPD with recent admission for GRACIELA and hypotension. Patient was thought to have a sepsis with unknown source and treated with Levaquin while in the hospital. Renal function normalized while in the emergency room. Patient was discharged today. She states that she got home around 2 PM. She states today she is feeling achy and just not good. She had temperature 100.4 at home. She notes her blood pressure was also elevated. She states her legs just feel weak and wobbly. She tried to smoke a cigarette and then felt more short of breath. She called the nurse on-call line who recommend she come back to the emergency room. She states that she was discharged home without any antibiotics and told to just resume the Macrobid she was taking but her urine cultures have been negative. She notes a history of rectal bleeding with bowel movement but thinks it is hemorrhoidal. She notes that she has had continued bladder discomfort but thinks it is associated with her Aquino catheter. She does not chronic cough and chronically produces white phlegm. She does not feel that significantly different than normal. She does note she felt short of breath when moving around the house. She denies any swelling of her legs. Denies a history of DVT or PE. No other complaints or concerns reported at this time. [facility] Medical History Nonalcoholic fatty liver disease Gastroparesis Hemorrhoid Constipation CA19-9 above reference range Exocrine pancreatic insufficiency Elevated lipase Elevated C-reactive protein (CRP) Heartburn Morbid obesity Asthma Tobacco user Benign essential hypertension Family history of aneurysm Wears partial dentures Wears dentures Anxiety Diabetes Bladder disease Dietary restriction History of hiatal hernia Gastric reflux BiPAP (biphasic positive airway pressure) dependence Sleep apnea Smoker Hypertension Cardiology follow-up encounter History of stress test History of echocardiogram Elevated CPK Fatty liver Abdominal pain Diarrhea Hemorrhage of gastrointestinal tract Depression Arthritis Mixed hyperlipidemia Type 2 diabetes mellitus COPD (chronic obstructive pulmonary disease) YARY treated with BiPAP Postoperative anemia Osteoarthritis Anxiety and depression Home Medications ?Medication ?Instructions ?Recorded ?Last Taken ?Type gemfibrozil 600 mg tablet 600 mg PO BID Cholestrol 06/13/14 11/26/23 History trazodone 100 mg tablet 100 mg PO QHS Mood 06/13/14 11/26/23 History alprazolam 0.5 mg tablet 0.5 mg PO QHS ANXIETY 07/30/15 11/27/23 History albuterol sulfate 90 mcg/actuation 1 - 2 puff inhalation Q4H PRN PRN 08/08/15 11/26/23 Rx aerosol inhaler (Ventolin HFA) Wheezing ##1 buspirone 5 mg tablet 7.5 mg PO BID Mood 07/11/18 03/20/24 History metformin 500 mg tablet,extended 500 mg PO BID Diabetes 07/11/18 11/26/23 History release 24 hr potassium chloride 10 mEq 10 meq PO DAILY Supplement 07/11/18 11/26/23 History tablet,extended release(part/cryst) sertraline 100 mg tablet (Zoloft) 200 mg PO QHS mental health 07/11/18 11/27/23 History fluticasone furoate 100 1 ea IH DAILY Breathing 07/29/19 11/27/23 History mcg-vilanterol 25 mcg/dose inhalation powder ipratropium bromide 0.02 % 2.5 ml inhalation Q6H PRN 08/21/21 Unknown Rx solution for inhalation shortness of breath or wheezing #75 mL albuterol sulfate 2.5 mg/3 mL 2.5 mg inhalation Q4H PRN 11/15/21 11/26/23 History (0.083 %) solution for nebulization shortness of breath cetirizine 10 mg tablet 10 mg PO DAILY PRN ALLERGIES 11/15/21 Unknown History gabapentin 300 mg capsule 600 mg PO .COMPLEX neuropathy 11/15/21 11/26/23 History (Neurontin) ibuprofen 600 mg tablet 600 mg PO Q12H PRN pain 11/15/21 Unknown History fluticasone propionate 50 2 spray intranasal DAILY 01/04/22 11/26/23 History mcg/actuation nasal spray,suspension (Allergy Relief (fluticasone)) glipizide 5 mg tablet 5 mg PO DAILY Diabetes 11/26/23 11/26/23 History carvedilol 6.25 mg tablet (Coreg) 6.25 mg PO BID Heart #60 tabs 01/20/24 Unknown Rx pantoprazole 20 mg tablet,delayed 20 mg PO BID GERD #60 TABLETS 02/10/24 Unknown Rx release polyethylene glycol 3350 17 17 g PO DAILY constipation #119 03/24/24 Unknown Rx gram/dose oral powder (Miralax) grams simethicone 80 mg chewable tablet 80 mg PO ACHS PRN Gas #0 tabs 03/24/24 Unknown Rx lisinopril 20 mg tablet 20 mg PO DAILY bp #60 TABLETS 08/05/24 Unknown Rx levofloxacin 750 mg tablet 750 mg PO DAILY #4 tabs 08/06/24 Unknown Rx phenazopyridine 200 mg tablet 200 mg PO TID PRN bladder pain #10 08/06/24 Unknown Rx (Pyridium) tabs Allergy/AdvReac Type Severity Reaction Status Date / Time Cephalosporins Allergy Intermediate Rash Verified 08/05/24 20:16 hydromorphone (From Dilaudid) Allergy Intermediate Altered Verified 08/05/24 20:16 mental status pseudoephedrine Allergy Intermediate Tachycardia Verified 08/05/24 20:16 egg (eggs) Allergy Mild Diarrhea Verified 08/05/24 20:16 fluoxetine (From Prozac) Allergy Chest Verified 08/05/24 20:16 tightness house dust mite Allergy NEEDS Verified 08/05/24 20:16 FOLLOW-UP hydrocodone (From Vicodin) Allergy Upset Verified 08/05/24 20:16 Stomach Penicillins Allergy Hives Verified 08/05/24 20:16 prednisone AdvReac PT UNABLE Verified 08/05/24 20:16 TO RESPOND-NEEDS F/U Family History Mother Glaucoma Cervical cancer Asthma Father , at 77 Myocardial infarction Cancer Lung, metastatic to bone CAD (coronary artery disease) History of coronary artery bypass surgery Aortic aneurysm and dissection Sister Colon polyp Thyroid disorder Lung cancer Surgical History History of lumbar laminectomy History of bladder suspension procedure Hx of cholecystectomy History of total right knee replacement Hx of tonsillectomy H/O vaginal hysterectomy Tubal ligation status History of back surgery History of appendectomy S/P total knee arthroplasty Social History household members: none housing: apartment Smoking Status: Current every day smoker tobacco type: cigarettes alcohol intake: never substance use type: does not use caffeine: Yes Type: carbonated beverages Number of servings: 2 ROS ROS ED Constitutional Constitutional ED: Reports chills, fever(s) and other Details: Generalized weakness ENT ENT ED: Denies sore throat Cardiovascular Cardiovascular: Denies chest pain Respiratory/Chest Respiratory/Chest: Reports cough, dyspnea, dyspnea on exertion and sputum Gastrointestinal Gastrointestinal: Denies abdominal pain, nausea or vomiting Genitourinary Genitourinary ED: Reports dysuria Musculoskeletal Musculoskeletal: Reports myalgias and other Details: Chronic back pain ; Denies arthralgias Integumentary Denies rash Neurologic Neurologic: Reports headache(s) and weakness; Denies paresthesias Psychiatric Psychiatric: Reports anxiety Hematologic/Lymphatic Hematologic/Lymphatic: Denies easy bleeding or easy bruising EXAM Physical Exam Const Vital Signs: 08/05/24 20:10 08/05/24 20:19 08/05/24 21:04 Temperature 99.9 F H 99.9 F H Temperature Source Oral Temporal Pulse Rate 80 83 Respiratory Rate 18 21 H Respiratory Effort Normal Blood Pressure 141/70 H 163/102 H Blood Pressure Mean 93 122 Pulse Ox 95 98 Oxygen Delivery Method Room Air 08/05/24 21:45 08/05/24 22:00 08/05/24 23:00 Temperature 98.4 F 99.2 F H Temperature Source Oral Oral Pulse Rate 82 80 92 Respiratory Rate 18 16 18 Respiratory Effort Blood Pressure 166/75 H 151/82 H Blood Pressure Mean 105 105 Pulse Ox 94 95 Oxygen Delivery Method Room Air Room Air 08/05/24 23:58 08/06/24 00:00 Temperature 99.3 F H 99.2 F H Temperature Source Oral Pulse Rate 92 82 Respiratory Rate 18 18 Respiratory Effort Blood Pressure 145/88 H 163/90 H Blood Pressure Mean 107 114 Pulse Ox 95 95 Oxygen Delivery Method Room Air Positive well nourished and well developed General Appearance ED: well developed and NAD HEENT Reports moist mucous membranes Eyes PERRL Neck supple and no JVD Chest Wall inspection of chest normal and palpation of chest normal Resp normal respiratory effort Resp Narrative: Coarse breath sounds, diminished at the bases Auscultation: Negative for rhonchi or wheezes Cardio regular rate and regular rhythm GI normal to inspection, nondistended, normoactive bowel sounds and non-tender Palpation: soft; Negative for tender or guarding Back/Spine no CVA tenderness Thoracic Spine / Upper Back: Negative for thoracic spinal tenderness Lumbar Spine / Lower Back: Negative for lumbar spinal tenderness Extremity normal to inspection General Extremety ED: Negative for edema or tenderness General Extremity: Negative for edema Neuro oriented x3 Sensorium / Orientation: alert Motor Exam: Negative for general weakness Psych mental status grossly normal Mood & Affect: anxious Skin no rashes or lesions noted and no wounds MDM MDM MDM Narrative Medical decision making narrative: Patient is evaluated for weakness recurrent fever. She was discharged from the hospital today. When the hospital she was treated with Levaquin but discharged home to resume Macrobid. It seems like the source was unclear from her admission. She also had hypotension and GRACIELA and was thought to be secondary to her blood pressure medication and hypovolemia. Given her new shortness of breath and recent hospitalization will perform CTA to ensure that he does not have a pulmonary emboli as a cause of her symptoms. Given that she has continued to have urinary symptoms despite multiple negative urine cultures we will also obtain a CT of the abdomen pelvis for further evaluation. Will recheck labs. Patient is have a low-grade temperature nine 9.9 in the emergency room. Differential includes is not limited to sepsis, pneumonia, intra-abdominal infection, kidney stones, urinary tract infection, GRACIELA, lactic acidosis, viral syndrome. Patient has a mild leukocytosis 11.8 which is uptrending from yesterday when it was 6.2. She does not have a left shift at this time. Lactate is normal today at 0.9. CMP largely normal and she continues have a normal creatinine. Potassium mildly low at 3.3 which is nonspecific. Urinalysis again is not consistent with infection. Cultures reviewed including sputum culture, blood culture, urine culture and stool cultures as well as respiratory panel which were all negative at her last admission. Patient initially given a DuoNeb and Ativan in the ER for her breathing and for her anxiety. On repeat evaluation she states she still feels anxious and is complain of a headache. Is given Tylenol and further Ativan. CT results show multifocal pneumonia but no pulmonary emboli. In addition it shows dilated small bowel of the lower abdomen and pelvis measuring up to 3.3 cm diameter which may represent early small bowel obstruction. Patient is not complain of any nausea, vomiting or acute abdominal symptoms. She states he is having regular bowel movements. Patient is offered admission given her CT findings and generalized weakness as well as fever. Patient states she really would prefer to go home. Shared medical decision making performed and patient will be treated with further Levaquin for her pneumonia. She is on a prescription for Pyridium for her dysuria. She is informed of her CT findings for her bowels. She is counseled to stick with a liquid diet for the next 48 hours and advance as tolerated. She is given very strict return precautions such as continued fever, worsening weakness, nausea, vomiting or not passing gas or worsening abdominal pain. Patient is encouraged to continue to push fluids. She is ambulated and does not go below 95% on room air. Patient discharged home in stable condition. Patient is given first dose of antibiotics in the ER. I did discuss the case with hospitalist who reviewed her prior admission, Dr. Ramos. He recommends making sure she has a full 7-day course of Levaquin at this time but thinks trialing outpatient treatment would be reasonable especially as patient wants to go home. History & Record Review Additional record(s) reviewed:: Prior inpatient record Lab Data Attestation: I reviewed the patient's lab results. Labs: Laboratory Results - last 24 hr 08/05/24 08/05/24 21:20 22:08 WBC 11.8 H RBC 4.25 Hgb 12.6 Hct 35.9 L MCV 84.5 MCH 29.6 MCHC 35.1 RDW Std Deviation 40.8 RDW Coeff of Rodrigo 13.2 Plt Count 288 MPV 10.2 Immature Gran % (Auto) 0.400 Neut % (Auto) 60.1 Lymph % (Auto) 27.2 [place] % (Auto) 6.4 Eos % (Auto) 5.5 H Baso % (Auto) 0.4 Absolute Neuts (auto) 7.1 Absolute Lymphs (auto) 3.21 Nucleated RBC % 0 Sodium 138 Potassium 3.3 L Chloride 107 Carbon Dioxide 23.0 Anion Gap 8 BUN 13 Creatinine 0.60 Estim Creat Clear Calc 103.39 Est GFR (MDRD) Af Amer 130 Est GFR (MDRD) Non-Af 108 BUN/Creatinine Ratio 21.8 H Glucose 146 H Lactic Acid 0.9 Calcium 8.5 Total Bilirubin 0.30 AST 19 ALT 16 Alkaline Phosphatase 60 Troponin I High Sens 3 Total Protein 7.0 Albumin 3.3 Globulin 3.7 Albumin/Globulin Ratio 0.9 Urine Color Yellow Urine Clarity Clear Urine pH 6.0 Ur Specific [place] 1.015 Urine Protein 15 H Urine Glucose (UA) Normal Urine Ketones Negative Urine Occult Blood 25 H Urine Nitrite Negative Urine Bilirubin Negative Urine Urobilinogen 1 H Ur Leukocyte Esterase Negative Urine RBC 0-5 SEEN Urine WBC 0 SEEN Ur Squamous Epith Cells 0-5 SEEN Urine Bacteria 0 SEEN Urine Mucus RARE Radiography Diagnostic Testing: Clinical Impression(s) from Imaging Studies Chest CTA 08/05/24 21:31 IMPRESSION: 1. No pulmonary embolism. 2. No thoracic or abdominal aortic aneurysm or dissection. 3. Scattered bilateral airspace opacities consistent with pneumonia. 4. Trace bilateral pleural effusions. 5. Dilated small bowel in the lower abdomen and pelvis measuring up to 3.3 cm in diameter which may represent early small bowel obstruction. Electronically Signed: Felipe BakerDO maria luz at 23:39 EST Reading Location ID and State: [facility] / [place] Tel , Service support , Abdomen/Pelvis CT 08/05/24 21:32 IMPRESSION: 1. No pulmonary embolism. 2. No thoracic or abdominal aortic aneurysm or dissection. 3. Scattered bilateral airspace opacities consistent with pneumonia. 4. Trace bilateral pleural effusions. 5. Dilated small bowel in the lower abdomen and pelvis measuring up to 3.3 cm in diameter which may represent early small bowel obstruction. Electronically Signed: Felipe Baker DO at 23:38 EST , Rhythm Strip Rhythm Strip: Sinus Rhythm Rate: 84 Ectopy: None EKG Initial EKG: Attestation: I personally reviewed and interpreted this EKG as follows: Interpretation: Sinus Rhythm Comments: Normal sinus rhythm at a rate of 84 bpm Normal axis Normal intervals Normal ST segments Management Discussion w/another healthcare provider: Hospitalist Discharge Plan Triage Chief Complaint: Shortness of Breath ED Provider: Lissette Guerin Dx/Rx/DC Orders Clinical Impression: Multifocal pneumonia, Dysuria, Abnormal computed tomography angiography (CTA) of abdomen and pelvis Instructions: ED Pneumonia (Adult) Prescriptions: New levofloxacin 750 mg tablet 750 mg PO DAILY Qty: 4 0RF phenazopyridine [Pyridium] 200 mg tablet 200 mg PO TID PRN (Reason: bladder pain) Qty: 10 0RF No Action fluticasone propionate [Allergy Relief (fluticasone)] 50 mcg/actuation spray,suspension 2 spray intranasal DAILY Rx Instructions: administer into each nostril albuterol sulfate 2.5 mg /3 mL (0.083 %) solution for nebulization 2.5 mg inhalation Q4H PRN (Reason: shortness of breath) ibuprofen 600 mg tablet 600 mg PO Q12H PRN (Reason: pain) cetirizine 10 mg tablet 10 mg PO DAILY PRN (Reason: ALLERGIES) carvedilol [Coreg] 6.25 mg tablet 6.25 mg PO BID Qty: 60 11RF Rx Instructions: must administer with a meal/food trazodone 100 MG tablet 100 mg PO QHS Patient Comments: Mood/anti-anxiety gemfibrozil 600 MG tablet 600 mg PO BID Patient Comments: Cholesterol alprazolam 0.5 MG tablet 0.5 mg PO QHS albuterol sulfate [Ventolin HFA] 1 INHALER inhaler 1 - 2 puff inhalation Q4H PRN PRN (Reason: Wheezing) Qty: 1 0RF buspirone 5 MG tablet 7.5 mg PO BID Patient Comments: anti-anxiety sertraline [Zoloft] 100 MG tablet 200 mg PO QHS metformin 500 MG tablet 500 mg PO BID potassium chloride 10 MEQ tablet 10 meq PO DAILY gabapentin [Neurontin] 300 mg capsule 600 mg PO .COMPLEX Rx Instructions: 600 mg PO take 2 caps in the am and 2 caps in the evening; fluticasone furoate-vilanterol 1 EACH blister with device 1 ea IH DAILY ipratropium bromide 0.02 % solution 2.5 ml inhalation Q6H PRN (Reason: shortness of breath or wheezing) Qty: 75 2RF lisinopril 20 mg tablet 20 mg PO DAILY Qty: 60 11RF glipizide 5 mg tablet 5 mg PO DAILY Patient Comments: 1 TAB DAILY, IF BG OVER 200 1.5 TABS simethicone 80 mg Tablet,Chewable 80 mg PO ACHS PRN (Reason: Gas) Qty: 0 0RF polyethylene glycol 3350 [Miralax] 17 gram/dose powder 17 g PO DAILY Qty: 119 0RF pantoprazole 20 mg tablet,delayed release (DR/EC) 20 mg PO BID Qty: 60 5RF Primary Care Provider: Susanna Monroe Referrals: Susanna Monroe MD [Primary Care Provider] - Activity Restrictions/Additional Instructions: Your CT shows multifocal pneumonia. We will resume the Levaquin (antibiotic he received in the hospital). You may stop the Macrobid (nitrofurantoin). In addition your CT showed some abnormalities of the bowels which could be consistent with a small bowel obstruction. Symptoms of this would include nausea, vomiting, worsening abdominal pain, constipation and not passing gas. If you develop the symptoms please return to the emergency room. Otherwise please stick to a liquid diet for the next 24 to 48 hours and then advance your diet as tolerated. If it anytime you feel you are getting worse, continue to have fever especially after another 24 hours or feel too weak please return immediately to the emergency room. Please take Tylenol as needed for fever and headache. Please make sure you are pushing fluids. Print Language: Citizen Of [place]
[2024-08-06] VITALS: BP 163/90; PULSE 82; RESP 18; TEMP 37.3; O2SAT 95
[2024-08-06] MEDS: levoFLOXacin 750 MG Tablet PO (00:09)
[2024-08-06] MEDS: Phenazopyridine 95 MG Tablet PO (00:09)
== END 2024-08-06 00:33 | disposition home or self-care (01) ==
LOC: ED 20:43
PROVIDERS: Emergency Provider Emergency Medicine; PCP Internal Medicine; Visit Provider Emergency Medicine
DX: J18.9 Pneumonia, unspecified organism (principal); J44.0 Chronic obstructive pulmonary disease with (acute) lower respiratory infection; E11.43 Type 2 diabetes mellitus with diabetic autonomic (poly)neuropathy; G47.33 Obstructive sleep apnea (adult) (pediatric); F41.9 Anxiety disorder, unspecified; R30.0 Dysuria; F17.210 Nicotine dependence, cigarettes, uncomplicated; I10 Essential (primary) hypertension; Z79.51 Long term (current) use of inhaled steroids; Z79.899 Other long term (current) drug therapy; Z79.84 Long term (current) use of oral hypoglycemic drugs
CPT/HCPCS: 71275; 74177; 80053; 81001; 83605; 84484; 85025; 93005; 94640; 96374; 96376; 99285; Q9967; A4216

== ENCOUNTER 2024-08-09 15:28 | Emergency (ER) | payer MEDICARE, MEDICAID, SELFPAY ==
[2024-08-09] VITALS (7 sets, daily range): BP systolic 146–162; BP diastolic 90–96; PULSE 74–84; RESP 19–22; TEMP 36.1–37.2; O2SAT 97–98; BMI 31.6
--- NOTE | 2024-08-09 15:55 | EDS_ITS ---
HPI <KEVIN De Leon - Last Filed: 08/09/24 19:54> History of Present Illness Chief Complaint: General Illness Narrative Narrative: Patient presenting today with multiple vague complaints. She has concerns for DVT to the right lower extremity. She reports that about 2 hours prior to arrival she developed pain in her right calf. She reports subjective swelling to her right leg. She denies any history of DVT or recent surgery/travel. She was recently admitted to the hospital due to an GRACIELA and hypotension. She was discharged 08/05/2024 and returned 2 hours later to the emergency department due to not feeling well. She was diagnosed with pneumonia and discharged home with Levaquin. She took her last dose today. She reports that her cough has improved but she still has a mild tightness in her chest that she has had since being diagnosed with pneumonia. She has a PMH of tobacco use, HTN, GERD, T2DM, YARY, and COPD. PFSH <KEVIN De Leon - Last Filed: 08/09/24 19:54> [facility] Medical History Nonalcoholic fatty liver disease Gastroparesis Hemorrhoid Constipation CA19-9 above reference range Exocrine pancreatic insufficiency Elevated lipase Elevated C-reactive protein (CRP) Heartburn Morbid obesity Asthma Tobacco user Benign essential hypertension Family history of aneurysm Wears partial dentures Wears dentures Anxiety Diabetes Bladder disease Dietary restriction History of hiatal hernia Gastric reflux BiPAP (biphasic positive airway pressure) dependence Sleep apnea Smoker Hypertension Cardiology follow-up encounter History of stress test History of echocardiogram Elevated CPK Fatty liver Abdominal pain Diarrhea Hemorrhage of gastrointestinal tract Depression Arthritis Mixed hyperlipidemia Type 2 diabetes mellitus COPD (chronic obstructive pulmonary disease) YARY treated with BiPAP Postoperative anemia Osteoarthritis Anxiety and depression Home Medications ?Medication ?Instructions ?Recorded ?Last Taken ?Type gemfibrozil 600 mg tablet 600 mg PO BID Cholestrol 06/13/14 11/26/23 History trazodone 100 mg tablet 100 mg PO QHS Mood 06/13/14 11/26/23 History alprazolam 0.5 mg tablet 0.5 mg PO QHS ANXIETY 07/30/15 11/27/23 History albuterol sulfate 90 mcg/actuation 1 - 2 puff inhalation Q4H PRN PRN 08/08/15 11/26/23 Rx aerosol inhaler (Ventolin HFA) Wheezing ##1 buspirone 5 mg tablet 7.5 mg PO BID Mood 07/11/18 03/20/24 History metformin 500 mg tablet,extended 500 mg PO BID Diabetes 07/11/18 11/26/23 History release 24 hr potassium chloride 10 mEq 10 meq PO DAILY Supplement 07/11/18 11/26/23 History tablet,extended release(part/cryst) sertraline 100 mg tablet (Zoloft) 200 mg PO QHS mental health 07/11/18 11/27/23 History fluticasone furoate 100 1 ea IH DAILY Breathing 07/29/19 11/27/23 History mcg-vilanterol 25 mcg/dose inhalation powder ipratropium bromide 0.02 % 2.5 ml inhalation Q6H PRN 08/21/21 Unknown Rx solution for inhalation shortness of breath or wheezing #75 mL albuterol sulfate 2.5 mg/3 mL 2.5 mg inhalation Q4H PRN 11/15/21 11/26/23 History (0.083 %) solution for nebulization shortness of breath cetirizine 10 mg tablet 10 mg PO DAILY PRN ALLERGIES 11/15/21 Unknown History gabapentin 300 mg capsule 600 mg PO .COMPLEX neuropathy 11/15/21 11/26/23 History (Neurontin) ibuprofen 600 mg tablet 600 mg PO Q12H PRN pain 11/15/21 Unknown History fluticasone propionate 50 2 spray intranasal DAILY 01/04/22 11/26/23 History mcg/actuation nasal spray,suspension (Allergy Relief (fluticasone)) glipizide 5 mg tablet 5 mg PO DAILY Diabetes 11/26/23 11/26/23 History carvedilol 6.25 mg tablet (Coreg) 6.25 mg PO BID Heart #60 tabs 01/20/24 Unknown Rx pantoprazole 20 mg tablet,delayed 20 mg PO BID GERD #60 TABLETS 02/10/24 Unknown Rx release polyethylene glycol 3350 17 17 g PO DAILY constipation #119 03/24/24 Unknown Rx gram/dose oral powder (Miralax) grams simethicone 80 mg chewable tablet 80 mg PO ACHS PRN Gas #0 tabs 03/24/24 Unknown Rx lisinopril 20 mg tablet 20 mg PO DAILY bp #60 TABLETS 11/27/24 Unknown Rx levofloxacin 750 mg tablet 750 mg PO DAILY #4 tabs 08/06/24 Unknown Rx phenazopyridine 200 mg tablet 200 mg PO TID PRN bladder pain #10 08/06/24 Unknown Rx (Pyridium) tabs cefuroxime axetil 500 mg tablet 500 mg PO BID #13 tabs 08/09/24 Unknown Rx doxycycline hyclate 100 mg capsule 100 mg PO BID #13 caps 08/09/24 Unknown Rx Allergy/AdvReac Type Severity Reaction Status Date / Time Cephalosporins Allergy Intermediate Rash Verified 08/09/24 15:31 hydromorphone (From Dilaudid) Allergy Intermediate Altered Verified 08/09/24 15:31 mental status pseudoephedrine Allergy Intermediate Tachycardia Verified 08/09/24 15:31 egg (eggs) Allergy Mild Diarrhea Verified 08/09/24 15:31 fluoxetine (From Prozac) Allergy Chest Verified 08/09/24 15:31 tightness house dust mite Allergy NEEDS Verified 08/09/24 15:31 FOLLOW-UP hydrocodone (From Vicodin) Allergy Upset Verified 08/09/24 15:31 Stomach Penicillins Allergy Hives Verified 08/09/24 15:31 prednisone AdvReac PT UNABLE Verified 08/09/24 15:31 TO RESPOND-NEEDS F/U Family History Mother Glaucoma Cervical cancer Asthma Father , at 77 Myocardial infarction Cancer Lung, metastatic to bone CAD (coronary artery disease) History of coronary artery bypass surgery Aortic aneurysm and dissection Sister Colon polyp Thyroid disorder Lung cancer Surgical History History of lumbar laminectomy History of bladder suspension procedure Hx of cholecystectomy History of total right knee replacement Hx of tonsillectomy H/O vaginal hysterectomy Tubal ligation status History of back surgery History of appendectomy S/P total knee arthroplasty Social History household members: none housing: apartment Smoking Status: Current every day smoker tobacco type: cigarettes alcohol intake: never substance use type: does not use caffeine: Yes Type: carbonated beverages Number of servings: 2 ROS <KEVIN De Leon - Last Filed: 08/09/24 19:54> ROS ED Constitutional Constitutional ED: Denies chills or fever(s) Cardiovascular Cardiovascular: Reports other Details: Chest tightness ; Denies palpitations Respiratory/Chest Respiratory/Chest: Denies cough, dyspnea, tachypnea or wheezing Gastrointestinal Gastrointestinal: Denies abdominal pain, nausea or vomiting Genitourinary Genitourinary ED: Denies dysuria, hematuria or urinary urgency Musculoskeletal Musculoskeletal: Reports myalgias; Denies arthralgias Integumentary Denies rash Neurologic Neurologic: Denies weakness EXAM <KEVIN De Leon - Last Filed: 08/09/24 19:54> Physical Exam Const Vital Signs: 08/09/24 15:31 08/09/24 15:34 08/09/24 15:38 Temperature 98.9 F 98.9 F Temperature Source Oral Oral Pulse Rate 78 78 Respiratory Rate 22 H 22 H Respiratory Effort Normal Respiratory Pattern Normal Blood Pressure 162/96 H 162/96 H Blood Pressure Mean 118 118 Pulse Ox 98 98 Oxygen Delivery Method Room Air Room Air 08/09/24 16:09 08/09/24 16:27 08/09/24 17:30 Temperature Temperature Source Pulse Rate 84 74 Respiratory Rate 20 H 19 H Respiratory Effort Respiratory Pattern Tachypnea Blood Pressure 146/90 H Blood Pressure Mean 108 Pulse Ox 98 97 Oxygen Delivery Method Room Air 08/09/24 19:00 08/09/24 19:11 Temperature 97 F L Temperature Source Pulse Rate 78 78 Respiratory Rate 20 H 20 H Respiratory Effort Respiratory Pattern Blood Pressure 146/90 H 146/90 H Blood Pressure Mean 108 108 Pulse Ox 98 98 Oxygen Delivery Method Room Air Positive well nourished, well developed and no apparent distress General Appearance ED: well developed HEENT Reports normocephalic and head/scalp atraumatic Mouth ED: Yes moist mucous membranes normal Eyes PERRL and EOMs intact bilaterally Neck full ROM and supple Chest Wall inspection of chest normal Resp normal respiratory effort Resp Narrative: Mild expiratory wheezes to the bilateral lung hemphill Cardio regular rate and regular rhythm GI soft to palpation, non-tender, non-distended and no masses Back/Spine normal ROM and normal to inspection Extremity normal to inspection and full ROM Extremity Narrative: Pain to palpation to the right calf, right DP pulse 2+, good cap refill, sensation intact. No palpable cord, no edema, no asymmetric swelling to the bilateral lower extremities. Neuro oriented x3, CN's II-XII intact bilaterally, moves all extremities, no focal motor deficits and no sensory deficits noted Sensorium / Orientation: awake and alert Psych mental status grossly normal and thought process normal Skin no rashes or lesions noted and no wounds <Dr. Julián Schrader DO - Last Filed: 08/10/24 00:56> Physical Exam Const Vital Signs: 08/09/24 15:31 08/09/24 15:34 08/09/24 15:38 Temperature 98.9 F 98.9 F Temperature Source Oral Oral Pulse Rate 78 78 Respiratory Rate 22 H 22 H Respiratory Effort Normal Respiratory Pattern Normal Blood Pressure 162/96 H 162/96 H Blood Pressure Mean 118 118 Pulse Ox 98 98 Oxygen Delivery Method Room Air Room Air 08/09/24 16:09 08/09/24 16:27 08/09/24 17:30 Temperature Temperature Source Pulse Rate 84 74 Respiratory Rate 20 H 19 H Respiratory Effort Respiratory Pattern Tachypnea Blood Pressure 146/90 H Blood Pressure Mean 108 Pulse Ox 98 97 Oxygen Delivery Method Room Air 08/09/24 19:00 08/09/24 19:11 Temperature 97 F L Temperature Source Pulse Rate 78 78 Respiratory Rate 20 H 20 H Respiratory Effort Respiratory Pattern Blood Pressure 146/90 H 146/90 H Blood Pressure Mean 108 108 Pulse Ox 98 98 Oxygen Delivery Method Room Air [facility] <KEVIN De Leon - Last Filed: 08/09/24 19:54> [facility] Narrative Medical decision making narrative: Patient presenting today with multiple vague complaints. She has concerns for DVT to her right calf, it began hurting about 2 hours prior to arrival. On exam, she is minimal pain to palpation to the right calf, no erythema, no edema, no palpable cord or clinical signs of DVT. She was just discharged here on 08/05 after being admitted for hypotension and concerns for UTI and GRACIELA. She did not end up having a UTI, she was discharged home then came back to the ED 2 hours later due to not feeling well, shortness of breath, and was still having urinary symptoms. CTA of the chest was obtained at that time, she also had a CT scan of the abdomen and pelvis. She had multifocal pneumonia, CT abdomen pelvis showed possible early small bowel obstruction. She was discharged home on Levaquin. She did just have a bowel movement about 2 hours prior to arrival, she has had no nausea or vomiting, she does not have any abdominal pain. She does have expiratory wheezes on exam, she was given DuoNeb and albuterol breathing treatments. Cardiac workup obtained. CBC shows a WBC of 11.8, her D- dimer is 1.22, troponin 4. Chest x-ray shows bilateral pneumonia that appears worse, chest CTA, negative for PE but does show the bilateral pneumonia and pleural effusions. Patient recently completed a course of Levaquin. We will start her on doxycycline and cefuroxime. She does have an allergy to cephalosporins that caused a rash listed in her chart but when talking with the patient, she denies having any allergy to cephalosporins that she can remember, she is comfortable trying the medication. I do feel that steroids would benefit her, however she reports that she has a bad reaction to steroids and is adamant that she does not want them. 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 She was given an outpatient order to have a venous duplex ultrasound tomorrow of her right lower extremity to rule out DVT. Low suspicion for this at this time, suspect her D-dimer is elevated due to the pneumonia. It has also been elevated in the past. Given she is not hypoxic, I feel she is stable for discharge. She will be discharged in stable condition. Lab Data Attestation: I reviewed the patient's lab results. Labs: Laboratory Results - last 24 hr 08/09/24 15:57 WBC 11.8 H RBC 4.11 L Hgb 11.9 L Hct 34.9 L MCV 84.9 MCH 29.0 MCHC 34.1 RDW Std Deviation 41.8 RDW Coeff of Rodrigo 13.6 Plt Count 353 MPV 9.8 Immature Gran % (Auto) 0.600 Neut % (Auto) 53.3 Lymph % (Auto) 25.9 [place] % (Auto) 6.5 Eos % (Auto) 13.3 H Baso % (Auto) 0.4 Absolute Neuts (auto) 6.3 Absolute Lymphs (auto) 3.06 Nucleated RBC % 0 D-Dimer Quant (PE/DVT) 1.22 H* Sodium 140 Potassium 3.5 Chloride 109 H Carbon Dioxide 22.0 Anion Gap 9 BUN 11 Creatinine 0.52 L Estim Creat Clear Calc 122.78 Est GFR (MDRD) Af Amer 153 Est GFR (MDRD) Non-Af 126 BUN/Creatinine Ratio 21.2 H Glucose 109 H Calcium 9.2 Troponin I High Sens 4 Urine Color Yellow Urine Clarity Clear Urine pH 6.0 Ur Specific [place] 1.010 Urine Protein 15 H Urine Glucose (UA) Normal Urine Ketones Negative Urine Occult Blood Negative Urine Nitrite Negative Urine Bilirubin Negative Urine Urobilinogen Normal Ur Leukocyte Esterase Negative Urine RBC 0 SEEN Urine WBC 0 SEEN Ur Squamous Epith Cells 0-5 SEEN Urine Bacteria 0 SEEN Urine Mucus 0 SEEN Radiography X-Ray: Read by ED Physician Diagnostic Testing: Clinical Impression(s) from Imaging Studies Chest X-Ray 08/09/24 16:20 IMPRESSION: Bilateral pneumonia appears worse. Electronically Signed: Luciano Celis MD at 16:54 EST , Chest CTA 08/09/24 16:51 IMPRESSION: 1. No demonstrated pulmonary embolism or arterial dissection. 2. There is bilateral pneumonia. 3. There are pleural effusions. Electronically Signed: Luciano Celis MD at 18:54 EST , EKG Initial EKG: Comments: 81 bpm, normal sinus rhythm, no ST elevation, interpreted by attending ED physician <Dr. Julián Schrader, DO - Last Filed: 08/10/24 00:56> [facility] Narrative Medical decision making narrative: Patient presenting today with multiple vague complaints. She has concerns for DVT to her right calf, it began hurting about 2 hours prior to arrival. On exam, she is minimal pain to palpation to the right calf, no erythema, no edema, no palpable cord or clinical signs of DVT. She was just discharged here on 08/05 after being admitted for hypotension and concerns for UTI and GRACIELA. She did not end up having a UTI, she was discharged home then came back to the ED 2 hours later due to not feeling well, shortness of breath, and was still having urinary symptoms. CTA of the chest was obtained at that time, she also had a CT scan of the abdomen and pelvis. She had multifocal pneumonia, CT abdomen pelvis showed possible early small bowel obstruction. She was discharged home on Levaquin. She did just have a bowel movement about 2 hours prior to arrival, she has had no nausea or vomiting, she does not have any abdominal pain. She does have expiratory wheezes on exam, she was given DuoNeb and albuterol breathing treatments. Cardiac workup obtained. CBC shows a WBC of 11.8, her D- dimer is 1.22, troponin 4. Chest x-ray shows bilateral pneumonia that appears worse, chest CTA, negative for PE but does show the bilateral pneumonia and pleural effusions. Patient recently completed a course of Levaquin. We will start her on doxycycline and cefuroxime. She does have an allergy to cephalosporins that caused a rash listed in her chart but when talking with the patient, she denies having any allergy to cephalosporins that she can remember, she is comfortable trying the medication. I do feel that steroids would benefit her, however she reports that she has a bad reaction to steroids and is adamant that she does not want them. 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 She was given an outpatient order to have a venous duplex ultrasound tomorrow of her right lower extremity to rule out DVT. Low suspicion for this at this time, suspect her D-dimer is elevated due to the pneumonia. It has also been elevated in the past. Given she is not hypoxic, I feel she is stable for discharge. She will be discharged in stable condition. Supervisory Physician Note Patient was seen and examined with the Advanced Practice Provider. Nursing notes and vital signs have been reviewed. Pertinent old records have been reviewed. I agree with the essential elements of the CORINE's history, physical exam, assessment, and plan. The differential diagnosis and management options were discussed with the CORINE. I participated in determining and agree with the management, procedures, final impression and disposition as documented. See changes noted by me. Please see addendum or separate note for any additional de tails. 54-year-old female with history of tobacco abuse, HTN, DM, COPD presents for evaluation of multiple complaints. Complaints consist of right calf tenderness, concern for DVT. Concern for UTI. Shortness of breath with recent pneumonia. Patient has a recent extensive medical history. On chart review, patient was recently admitted to the hospital due to GRACIELA, hypotension. Was discharged home in 08/05/2024. On the same day of discharge she returned back to emergency department due to similar complaints. Was diagnosed with pneumonia and discharged home with Levaquin. Patient states she took her last dose of Levaquin today. She still endorses cough, mild chest tightness, and shortness of breath. She has been using nebulizers at home. Patient states she is currently trying to quit her tobacco abuse. She states she also developed some pain in her right calf in which she is worried about a DVT. She denies any history of DVT or recent surgery/travel. Patient is also concerned that she has a UTI although denies any dysuria or hematuria. Gen: A&O x3, NAD Head: Normocephalic, atraumatic Eyes: No sclera icterus, conjunctiva clear ENT: Moist mucous membranes Neck: Trachea midline, No JVD, no meningismus CV: RRR, no murmurs, no peripheral edema Resp: Lungs mildly coarse bilaterally with expiratory wheezing, + cough GI: Abd soft, non-distended, non-tender, no r/r/g Musc: Full ROM, no deformity, mild tenderness to palpation of the right calf-no swelling, erythema, warmth, DP/PT pulses plus 2 out of 4 bilaterally, good capillary refill, sensation intact Skin: Warm, dry Neuro: Alert, oriented, grossly intact, sensation intact Psych: Cooperative, appropriate mood and affect Differential diagnosis includes but is not limited to DVT, muscle strain, viral illness, pneumonia, COPD exacerbation, ACS, PE, UTI, electrolyte abnormality. Patient presents for multiple complaints. Venous duplex ultrasound to assess for DVT is not available in our emergency department at this time. Patient will be given an outpatient prescription to have one obtained tomorrow. On previous ER visit patient had CTA chest as well as CT abdomen pelvis. She had multifocal pneumonia with possibly early small bowel obstruction. Patient is not having any bowel obstruction type symptoms. Patient ordered breathing treatments for her wheezing. I do feel with her COPD history she would benefit from prednisone. This was discussed with the patient. Patient states that she will absolutely not take prednisone given that it causes her tachycardia and makes her feel like she is dying. Therefore steroids were foregone. Laboratory workup ordered including chest x-ray. CBC with mild leukocytosis and mild anemia. D-dimer elevated at 1.22. Patient just had a CTA chest that was nega tive for PE however given her elevated D-dimer with calf pain and shortness of breath cannot rule out PE. CTA chest ordered. BMP relatively unremarkable. Troponin unremarkable. UA negative for UTI. CTA chest negative for PE or dissection. Patient has bilateral pneumonia which is consistent with her chest x-ray. Given that her bilateral pneumonia appears worse and patient was just treated with Levaquin we will place her on doxycycline and cefuroxime. First doses ordered here. Vitals are stable. Patient is not hypoxic. Patient stable to discharge home. Venous duplex ultrasound order to assess for DVT outpatient. Follow-up with PCP and pulmonology. Return precautions explained. Impression: 1. Bilateral pneumonia 2. Right calf pain, concern for DVT Lab Data Labs: Laboratory Results - last 24 hr 08/09/24 15:57 WBC 11.8 H RBC 4.11 L Hgb 11.9 L Hct 34.9 L MCV 84.9 MCH 29.0 MCHC 34.1 RDW Std Deviation 41.8 RDW Coeff of Rodrigo 13.6 Plt Count 353 MPV 9.8 Immature Gran % (Auto) 0.600 Neut % (Auto) 53.3 Lymph % (Auto) 25.9 [place] % (Auto) 6.5 Eos % (Auto) 13.3 H Baso % (Auto) 0.4 Absolute Neuts (auto) 6.3 Absolute Lymphs (auto) 3.06 Nucleated RBC % 0 D-Dimer Quant (PE/DVT) 1.22 H* Sodium 140 Potassium 3.5 Chloride 109 H Carbon Dioxide 22.0 Anion Gap 9 BUN 11 Creatinine 0.52 L Estim Creat Clear Calc 122.78 Est GFR (MDRD) Af Amer 153 Est GFR (MDRD) Non-Af 126 BUN/Creatinine Ratio 21.2 H Glucose 109 H Calcium 9.2 Troponin I High Sens 4 Urine Color Yellow Urine Clarity Clear Urine pH 6.0 Ur Specific [place] 1.010 Urine Protein 15 H Urine Glucose (UA) Normal Urine Ketones Negative Urine Occult Blood Negative Urine Nitrite Negative Urine Bilirubin Negative Urine Urobilinogen Normal Ur Leukocyte Esterase Negative Urine RBC 0 SEEN Urine WBC 0 SEEN Ur Squamous Epith Cells 0-5 SEEN Urine Bacteria 0 SEEN Urine Mucus 0 SEEN Radiography Diagnostic Testing: Clinical Impression(s) from Imaging Studies Chest X-Ray 08/09/24 16:20 IMPRESSION: Bilateral pneumonia appears worse. Electronically Signed: Luciano Celis MD at 16:54 EST , Chest CTA 08/09/24 16:51 IMPRESSION: 1. No demonstrated pulmonary embolism or arterial dissection. 2. There is bilateral pneumonia. 3. There are pleural effusions. Electronically Signed: Luciano Celis MD at 18:54 EST , Discharge Plan Triage Chief Complaint: General Illness ED Midlevel Provider: Kemi Velez ED Provider: Julián Schrader Dx/Rx/DC Orders Clinical Impression: SOB (shortness of breath), Multifocal pneumonia, Acute pain of right lower extremity Instructions: ED Pneumonia (Adult) Prescriptions: New doxycycline hyclate 100 mg capsule 100 mg PO BID Qty: 13 0RF cefuroxime axetil 500 mg tablet 500 mg PO BID Qty: 13 0RF No Action fluticasone propionate [Allergy Relief (fluticasone)] 50 mcg/actuation spray,suspension 2 spray intranasal DAILY Rx Instructions: administer into each nostril albuterol sulfate 2.5 mg /3 mL (0.083 %) solution for nebulization 2.5 mg inhalation Q4H PRN (Reason: shortness of breath) ibuprofen 600 mg tablet 600 mg PO Q12H PRN (Reason: pain) cetirizine 10 mg tablet 10 mg PO DAILY PRN (Reason: ALLERGIES) carvedilol [Coreg] 6.25 mg tablet 6.25 mg PO BID Qty: 60 11RF Rx Instructions: must administer with a meal/food trazodone 100 MG tablet 100 mg PO QHS Patient Comments: Mood/anti-anxiety gemfibrozil 600 MG tablet 600 mg PO BID Patient Comments: Cholesterol alprazolam 0.5 MG tablet 0.5 mg PO QHS albuterol sulfate [Ventolin HFA] 1 INHALER inhaler 1 - 2 puff inhalation Q4H PRN PRN (Reason: Wheezing) Qty: 1 0RF buspirone 5 MG tablet 7.5 mg PO BID Patient Comments: anti-anxiety sertraline [Zoloft] 100 MG tablet 200 mg PO QHS metformin 500 MG tablet 500 mg PO BID potassium chloride 10 MEQ tablet 10 meq PO DAILY gabapentin [Neurontin] 300 mg capsule 600 mg PO .COMPLEX Rx Instructions: 600 mg PO take 2 caps in the am and 2 caps in the evening; fluticasone furoate-vilanterol 1 EACH blister with device 1 ea IH DAILY ipratropium bromide 0.02 % solution 2.5 ml inhalation Q6H PRN (Reason: shortness of breath or wheezing) Qty: 75 2RF lisinopril 20 mg tablet 20 mg PO DAILY Qty: 60 11RF levofloxacin 750 mg tablet 750 mg PO DAILY Qty: 4 0RF phenazopyridine [Pyridium] 200 mg tablet 200 mg PO TID PRN (Reason: bladder pain) Qty: 10 0RF glipizide 5 mg tablet 5 mg PO DAILY Patient Comments: 1 TAB DAILY, IF BG OVER 200 1.5 TABS simethicone 80 mg Tablet,Chewable 80 mg PO ACHS PRN (Reason: Gas) Qty: 0 0RF polyethylene glycol 3350 [Miralax] 17 gram/dose powder 17 g PO DAILY Qty: 119 0RF pantoprazole 20 mg tablet,delayed release (DR/EC) 20 mg PO BID Qty: 60 5RF Other Ambulatory Orders: Venous Duplex US, Unilateral (Stat) Facility: [facility] [place] - Location: [facility] Ordered By: Kemi [place] Primary Care Provider: Susanna Monroe Referrals: Susanna Monroe MD [Primary Care Provider] - 5-7 Days Activity Restrictions/Additional Instructions: Follow-up with your PCP, return for any other concerns. Print Language: Angolan Disposition Disposition: Home, Self Care Discharge Date/Time: 08/09/24 19:16
--- NOTE | 2024-08-09 16:03 | ED.RN ---
THIS RN WENT IN TO DO ASSESMENT WHEN PT STATES `I AM NOT TELLING YOU AGAIN READ WHAT THE OTHER PEOPLE HAVE WROTE , THIS WILL BE THE FIRST TIME, ARE YOU EVEN A `.
--- NOTE | 2024-08-09 16:06 | EKG12_ITS ---
Test Reason : SOB Blood Pressure : */* mmHG Vent. Rate : 81 BPM Atrial Rate : 81 BPM P-R Int : 166 ms QRS Dur : 74 ms QT Int : 410 ms P-R-T Axes : 51 10 18 degrees QTcB Int : 476 ms Normal sinus rhythm Normal ECG Confirmed by León Cruz ([id number]), editorial writer ANGELINE VELÁSQUEZ ([id number]) on 08/10/2024 11:47:32 AM Referred By: Confirmed By: León Cruz
[2024-08-09 16:15] LABS: Absolute Lymphocyte Count 3.06 X10^3/uL (0.83-4.51); Absolute Neutrophil Count 6.3 X10^3/uL (2.0-7.7); Basophil# 0.05 X10^3/uL; Basophil% 0.4 % (0-1); Eosinophil# 1.57 X10^3/uL; Eosinophils% 13.3 % (0-5); Hematocrit 34.9 % (37-47); Hemoglobin 11.9 g/dL (12.0-15.0); Lymphocyte # 3.06 X10^3/ul (0.83-4.51); Lymphocyte % 25.9 % (19-41); Mean Corp Hgb Conc 34.1 g/dL (32-36); Mean Corpuscular Volume 84.9 fL (81-99); Mean Platelet Vol. 9.8 fl (6.2-12.0); Monocyte# 0.77 X10^3/uL; Monocyte% 6.5 % (0-10); NRBC Flagged by Analyzer 0 % (0-5); Neutrophil # 6.28 X10^3/uL (2.7-7.7); Neutrophil % 53.3 % (47-70); Platelet Count 353 K/mm3 (150-450); RBC Distribution Width CV 13.6 % (11.6-14.6); RBC Distribution Width SD 41.8 fl (35.1-43.9); Red Blood Count 4.11 M/mm3 (4.2-5.4); White Blood Count 11.8 K/mm3 (4.4-11.0)
--- NOTE | 2024-08-09 16:20 | RAD_ITS ---
STUDY: XR Chest 2 Views 08/09/2024 4:21 PM REASON FOR EXAM: Female, 64 years old. chest pain COMPARISON: 08/02/2024 TECHNIQUE: XR Chest 2 Views FINDINGS: There is no demonstrated pleural abnormality. Lower lobe infiltrates. Normal heart size. Normal mediastinum. Normal norah. Prominent appearing increased interstitial lung markings. Normal visualized pulmonary arteries. There is atherosclerotic calcification of the aortic arch with tortuosity. There are diffuse degenerative changes of the visualized thoracic spine. There is degenerative osteoarthritis of the bilateral shoulders. There are no acute findings of the upper abdomen. RAD/Chest PA and Lateral IMPRESSION: Bilateral pneumonia appears worse. Electronically Signed: Luciano Celis MD at 16:54 EST ,
[2024-08-09] MEDS: Ipratropium/Albuterol Sulfate 3 ML AMPUL.NEB INHALATION (16:26)
[2024-08-09] MEDS: Albuterol 2.5 MG/3 ML VIAL.NEB. INHALATION (16:26)
[2024-08-09 16:33] LABS: Anion Gap 9 (5-15); BUN 11 mg/dL (7-18); BUN/Creat Ratio 21.2 RATIO (10-20); Calcium,Total 9.2 mg/dL (8.5-10.1); Chloride 109 mmol/L (98-107); Creatinine, Serum 0.52 mg/dL (0.55-1.02); EST Glomerular Filtration Rate 126 mL/min (>60); Est Glom Filt Rate - Afr Amer 153 mL/min (>60); Estimated Creatinine Clearance 122.78 ml/min; Glucose 109 mg/dL (74-106); Potassium 3.5 mmol/L (3.5-5.1); Sodium Level 140 mmol/L (136-145); Troponin-I HS 4 pg/mL (3.0-54.0)
--- NOTE | 2024-08-09 16:36 | ED.RN ---
PER DR. SAVAGE SEPSIS SCREEN CANCELLED.
[2024-08-09 16:51] LABS: D-Dimer Quantitative (DVT/PE) 1.22 FEU/ug/m (0.27-0.49)
--- NOTE | 2024-08-09 16:51 | CT_ITS ---
EXAM: CT ANGIOGRAPHY CHEST WITHOUT AND WITH INTRAVENOUS CONTRAST CLINICAL INDICATION: chest pain, SOB, elevated d-dimer TECHNIQUE: Helically acquired angiography images were obtained of the chest without and with intravenous contrast. This CT exam was performed using one or more of the following dose reduction techniques: automated exposure control, adjustment of the mA and/or kV according to patient size, and/or use of iterative reconstruction technique. MIP reconstructed images were created and reviewed. CONTRAST: IV 100mL Isovue-370 RADIATION DOSE: CTDIvol = 14.65 mGy, DLP = 482.06 mGy-cm COMPARISON: No relevant prior studies available. FINDINGS: PULMONARY ARTERIES: Unremarkable. No demonstrated pulmonary embolism or arterial dissection. AORTA: There is atherosclerotic calcification of the aortic arch with tortuosity and elongation of the aortic arch and descending thoracic aorta. Normal in caliber. No evidence of dissection. GREAT VESSELS OF AORTIC ARCH: Unremarkable. Normal in caliber. No evidence of dissection. LUNGS AND PLEURAL SPACES: There are scattered groundglass infiltrates bilaterally worse on the right side. There is bilateral pneumonia. There are pleural effusions. No mass. HEART: There are calcifications of the coronary arteries. Heart size is normal. No pericardial effusion. MEDIASTINUM: Unremarkable. No mediastinal or hilar adenopathy. Esophagus is unremarkable. No hiatal hernia. THYROID: Unremarkable. No thyroid lesions. BONES/JOINTS: There are degenerative changes of the shoulders. There are multi-level degenerative changes of the thoracic spine. No suspicious lytic or blastic abnormality. OTHER FINDINGS: Post-processing of the images was performed, with axial imaging and 3D reconstruction. MIPS images were obtained. CT/CTA Chest W/WO Contrast IMPRESSION: 1. No demonstrated pulmonary embolism or arterial dissection. 2. There is bilateral pneumonia. 3. There are pleural effusions. Electronically Signed: Luciano Celis MD at 18:54 EST ,
[2024-08-09 18:51] LABS: Bacteria 0 SEEN /hpf (None Seen); Mucous, Urine 0 SEEN /hpf (<or=2+); Red Blood Cells-Urine 0 SEEN /hpf (0-5); White Blood Cells 0 SEEN /hpf (0-5)
[2024-08-09 18:53] LABS: Color, Urine Yellow (Yellow); Glucose, Dipstick Normal (Normal); Ketone-Dipstick Negative (Negative); Leukocyte Esterase-Dipstick Negative /ul (Negative); Nitrite-Dipstick Negative (Negative); Occult Blood-Urine Negative /ul (Negative); Protein-Dipstick 15 mg/dl (Negative); Urine Bilirubin Dipstick Negative (Negative); Urine Clarity Clear (Clear); Urine Urobilinogen Normal (Normal)
[2024-08-09 19:04] LABS: Squamous Epithelial Cells - UA 0-5 SEEN /hpf (5-10)
[2024-08-09] MEDS: Doxycycline 100 MG CAPSULE PO (19:08)
[2024-08-09] MEDS: cefuroxime axetiL 250 MG TABLET 500 MG PO (19:14)
== END 2024-08-09 19:16 | disposition home or self-care (01) ==
PROVIDERS: Physician Assistant; Emergency Provider Surgery; PCP Internal Medicine; Visit Provider Surgery
DX: J18.9 Pneumonia, unspecified organism (principal); J44.0 Chronic obstructive pulmonary disease with (acute) lower respiratory infection; E11.43 Type 2 diabetes mellitus with diabetic autonomic (poly)neuropathy; M79.661 Pain in right lower leg; F17.210 Nicotine dependence, cigarettes, uncomplicated; G47.33 Obstructive sleep apnea (adult) (pediatric)
CPT/HCPCS: 71046; 71275; 80048; 81001; 84484; 85025; 85379; 87631; 93005; 94640; 99285; Q9967; A4216

== ENCOUNTER → 2024-08-10 | Outpatient (CLI) | payer MEDICARE, MEDICAID, SELFPAY ==
--- NOTE | 2024-08-10 13:50 | VDLE_ITS ---
Reason For Study: Right leg pain RIGHT LEFT GSV is normal. CFV is compressible, spontaneous, phasic, CFV is compressible, spontaneous, phasic, competent, and demonstrates normal competent and demonstrates normal augmentation. augmentation. FV is compressible, spontaneous, phasic, competent and demonstrates normal augmentation. POP V is compressible, spontaneous, phasic, competent and demonstrates normal augmentation. T/P Trunk is compressible. PTV is compressible. RT PerV is compressible. Procedure This is a venous duplex using B-mode, color flow and spectral Doppler. Exam performed in department. A preliminary report was called and/or faxed to PCP: Dr. Monroe. VL/Venous Duplex US, Unilateral Interpretation Summary Deep veins of the right lower extremity are patent and compressible segmentally . There is no evidence of right lower extremity deep vein thrombosis. The right great sapheno us vein appears patent and compressible segmentally. Ordering Physician: Kemi Velez Referring Physician: Susanna Monroe M.D. Performed By: Janelle Wright RVT
== END | disposition home or self-care (01) ==
LOC: CVS 13:49
PROVIDERS: PCP Internal Medicine; Referring Provider Physician Assistant; Visit Provider Physician Assistant
DX: M79.604 Pain in right leg (principal)
CPT/HCPCS: 93971

== ENCOUNTER → 2024-09-03 | Outpatient (CLI) | payer MEDICARE, MEDICAID, SELFPAY ==
--- NOTE | 2024-09-03 12:28 | MRI_ITS ---
STUDY: MRI CERVICAL SPINE WITHOUT CONTRAST REASON FOR EXAM: Female, 64 years old. cervical myelopathy TECHNIQUE: Standardized fat and water weighted pulse sequences were obtained in the sagittal and axial planes. COMPARISON: None FINDINGS: Normal foramen magnum and brainstem-cervical cord junction. Normal craniovertebral junction. Normal anterior atlantoaxial articulation. Normal odontoid process. There is straightening of the normal cervical lordosis. Normal vertebral bodies and posterior osseous elements. C2-3: Normal endplates. Normal disc height, signal and morphology. Normal central canal and intervertebral neural foramina. C3-4: Moderate broad disc osteophyte complex reduces moderate spinal stenosis with abutment of the central spinal cord and mild bilateral neural foraminal stenosis. C4-5: Mild broad disc osteophyte complex present mild spinal stenosis. No neural foraminal stenosis. C5-6: Moderate broad disc osteophyte complex present moderate spinal stenosis with abutment of the central spinal cord and mild bilateral neural foraminal stenosis. C6-7: Moderate broad disc osteophyte complex produces moderate spinal stenosis with abutment of the central spinal cord and mild bilateral neural foraminal stenosis. C7-T1: Normal endplates. Normal disc height, signal and morphology. Normal central canal and intervertebral neural foramina. Normal cervical cord. Normal visualized soft tissue structures. MRI/Spine Cervical (Routine) IMPRESSION: Multilevel degenerative changes, as described above. Electronically Signed: Apollo Monteiro MD at 14:31 EST ,
== END | disposition home or self-care (01) ==
LOC: MRI 12:25
PROVIDERS: PCP Internal Medicine; Referring Provider Student in an Organized Health Care Education/Training Program; Visit Provider Student in an Organized Health Care Education/Training Program
DX: G95.9 Disease of spinal cord, unspecified (principal)
CPT/HCPCS: 72141

== ENCOUNTER 2024-11-02 17:00 | Outpatient (RCR) | payer MEDICARE, MEDICAID, SELFPAY ==
--- NOTE | 2024-09-25 16:26 | HP.PTEVAL_ITS ---
Patient's Visit Information Visit Information Visit Information: GARLAND PARIKH is a 64 year old F referred to Physical Therapy by Dr. Blake Avilez MD with a diagnosis of Radiculopathy ,cervical region. Date of Evaluation: 09/25/24 Physical Therapist: Tristin Lyon, PT, Cert MDT, OCS Visit Plan Frequency: 2x /Week Duration: 4 Weeks Plan: PT INTERVENTIONS CERVICAL ROM ,POSTURAL EX'S ,STRENGTHENING ,BALANCE PROGRAM AND MODALITIES NEEDED Subjective Subjective: This 64 y/o female presents to physical therapy cervical radiculopathy . Patient has had neck pain ~ 3 years worse on right side . Patient seen DR Avilez recommended PT work on strengthening and balance. Patient had MRI showed mod stenosis and osteophytes . No medication. Location of pain cervical to scapular and shoulders. Aggravating factors carrying ,turning neck ,flexion extension and lifting. Alleviating medication. C/O EDWARDS ,dizziness ,tinnitus,denies nausea. Patient ahs lumbar laminectomy. Patient feels as though unbalance ,no falls .Patient condition affects QOL and function/housework tasks. Patient goals to decrease pain. SOCIAL: single VOCATION: disability Pain Bilateral Neck: Pain Intensity (Out of 10): 3 Pain Intensity Range: 10 Objective Objective: POSTURE: mild forward posture GAIT: reciprocal pattern antalgic gait NEURO: denies paresthesia/tingling ,reflexes C5-6-7 1/3 AROM: BUE WFL MMT: BUE grossly 4/5 ,except shoulders 4-/5 CERVICAL ROM: flexion min loss ,extension min loss ,rotation/lateral flexion mod loss Special Tests C/S Radiculapathy - Left Upper limb tension test: Negative C/S Radiculapathy - Right Upper limb tension test: Negative C/S Radiculapathy - Left Spurlings: Negative C/S Radiculapathy - Right Spurlings: Negative C/S Radiculapathy - Left Cervical distraction: Negative C/S Radiculapathy - Right Cervical distraction: Negative C/S Radiculapathy - Left Relief test: Negative C/S Radiculapathy - Right Relief test: Negative Sharp Francisco Javier: Negative Vertebral Artery Test: Negative Alar Ligament Test: Negative Balance/Special Test Scores Oswestry Neck Score: 21 Goals Goal 1:: Patient to be I with HEP for neck Goal Time Frame: 4-6 Weeks Goal 2:: Patient to improve cervical ROM for function of recovery to turn neck to drive car Goal Time Frame: 4-6 Weeks Goal 3:: Patient to improve neck oswestry score by 5 points to improve QOL Goal Time Frame: 4-6 Weeks Goal 4:: Patient to demonstrate 50% improvement with less pain and improved function Goal Time Frame: 4-6 Weeks Goal 5:: Patient to improve CATSIB by 5 points to improve BALANCE Goal Time Frame: 4-6 Weeks Rehabilitation Potential Physical Therapy Diagnosis: This patient has cervical radiculopathy with radicular symptoms to shoulder with pain with positioning and motion testing with unrelated problem with minor balance deficits thus benefit from skilled PT Rehabilitation Potential: Good Anticipated Interventions Patient/Client Instruction: Educate patient on: Condition and Plan of Care For the Purpose of:: To decrease pain, To increase ROM, To improve muscle performance and motor function, To improve ability to perform ADL's, To increase tolerance to activity/condition/position, To improve ability of physical actions for home/community/work/leisure, To improve health of tissue, To decrease soft tissue restriction and To increase flexibility/ROM Therapeutic Exercise to Include: Strength training, Endurance training, Balance training, Postural training, Flexibilty training and Active ROM For the Purpose of:: To decrease pain, To increase ROM, To improve muscle performance and motor function, To increase tolerance to activity/condition/position, To improve ability of physical actions for home/community/work/leisure, To improve health of tissue, To decrease soft tissue restriction, To increase flexibility/ROM, To improve endurance, To improve balance and To improve tolerance to ADL's TENS: Yes IF ES: Yes Cryotherapy (ice pack, ice massage): Yes Thermo therapy (hot pack): Yes Ultrasound (thermal/non thermal): Yes For the Purpose of:: To decrease pain, To increase ROM, To improve nutrient delivery to tissue, To increase oxygenation perfusion, To improve health of tissue and To decrease soft tissue restriction Text: Thank you for the opportunity to evaluate your patient. For Medicare and Medicare HMO plans, please review the plan of care and approve it. It will need to be FAXED BACK to us at [phone] for Medicare purposes. For Medicare only, by signing this I certify the plan of care. Please let me know if there are questions or concerns regarding this plan of c are. Physician Signature: Date:
--- NOTE | 2024-11-02 17:30 | HP.PTDCSUM ---
Discharge Summary D/C summary: It has been my pleasure to treat GARLAND PARIKH referred by Dr. Blake Avilez MD, with the diagnosis of Radiculopathy ,cervical region for a total of 6 visit(s). Discharge Date: Please see the following information for a summary of their discharge status. Subjective Subjective: I am no better. Maybe even worse Pain Bilateral Neck: Pain Intensity (Out of 10): 6 EDWARDS: Pain Intensity (Out of 10): 0 Overall Improvement % Improvement: 0 Objective Objective/Function: Pt has full cervical spine ROM that is painful at endrange No change in pain at this time Oswestry neck score 21 (43% disability) Goals Goal 1:: Patient to be I with HEP for neck Goal Progress: Goal Met Goal 2:: Patient to improve cervical ROM for function of recovery to turn neck to drive car Goal Progress: Goal Met Goal 3:: Patient to improve neck oswestry score by 5 points to improve QOL Goal 4:: Patient to demonstrate 50% improvement with less pain and improved function Goal Progress: Not Progressing Goal 5:: Patient to improve CATSIB by 5 points to improve BALANCE Goal Progress: Not tested Plan Plan: Discontinue secondary to lack of progress D/C Information d/c sentence: If there are questions or concerns regarding this patient's physical therapy, please feel free to call me at [phone]. Thank you for the referral of this patient. Sincerely, Luciano Cummings, PT, ATC Balance/Gait/Functional tests Balance/Special Test Scores Oswestry Neck Score: 21 Improvement % Improvement: 0
== END 2024-11-02 19:00 | disposition home or self-care (01) ==
LOC: PT 17:00
PROVIDERS: PCP Internal Medicine; Referring Provider Orthopaedic Surgery Orthopaedic Surgery of the Spine; Visit Provider Orthopaedic Surgery Orthopaedic Surgery of the Spine
DX: M54.12 Radiculopathy, cervical region (principal)
CPT/HCPCS: 97035; 97110; 97162; 97530

== ENCOUNTER → 2024-11-11 | Outpatient (CLI) | payer MEDICARE, MEDICAID, SELFPAY ==
--- NOTE | 2024-11-11 14:07 | NEURO_ITS ---
NCS and/or EMG Patient Report Ordering Doctor: TRAY HERNÁNDEZ DATE OF SERVICE: 11/11/24 Ibis presents for electrodiagnostic testing of the right upper and right lower limb. She reports numbness and tingling in the hand and leg. Electrodiagnostic findings: Right median motor nerve demonstrates prolonged lat ency with normal amplitude and reduced conduction velocity. Normal right ulnar motor response. Normal right peroneal and right tibial motor responses. Normal median, ulnar, tibial and peroneal F-waves on the right side. Prolonged right median sensory latency at the wrist. Normal right ulnar and radial sensory responses. Normal right sural and right superficial peroneal responses. Needle EMG testing was performed the right upper and right lower limb. All muscles tested showed no evidence of denervation with normal motor unit action potentials. Electrodiagnostic impression: This is an abnormal study. 1. Electrodiagnostic findings suggestive of right-sided median mononeuropathy. This consistent with a mild right carpal tunnel syndrome. 2. There is no electrodiagnostic evidence for peripheral polyneuropathy. Testing is normal in the right lower limb. There was a previous study from October 07, 2019 which demonstrated bilateral sural neuropathy. There is no longer evidence of a right sural neuropathy. Multi Select Codes Neurology Neurology Interp Codes: 20393-80 Musc test done w/n test comp (interp) (2) and 05719-88 Nrv cndj test 11-12 studies (interp)
== END | disposition home or self-care (01) ==
LOC: PSN 12:34
PROVIDERS: PCP Internal Medicine; Referring Provider Physician Assistant Medical; Visit Provider Physician Assistant Medical
DX: G62.9 Polyneuropathy, unspecified (principal); E11.40 Type 2 diabetes mellitus with diabetic neuropathy, unspecified
CPT/HCPCS: 95886; 95912

== ENCOUNTER → 2024-12-18 | Outpatient (CLI) | payer MEDICARE, MEDICAID, SELFPAY ==
--- NOTE | 2024-12-18 16:19 | MRI_ITS ---
PROCEDURE: SPINE LUMBAR (ROUTINE) 12/18/2024 REASON FOR EXAM: PAIN TECHNIQUE: Multiplaner MRI of the lumbar spine performed without contrast. Multiple pulse sequences were obtained. COMPARISON: None FINDINGS: Vertebral body heights are within normal limits. Negative for fracture or marrow replacement. Vertebral body hemangioma at T12. Grade 1 retrolisthesis of L1-2 and L2-3. Mild levoscoliosis. Conus medullaris is intact and terminates at L1. Mild paraspinal muscle atrophy. No paraspinal mass. L1-2: Posterior disc bulge. Mild bilateral facet arthrosis and ligamentum flavum hypertrophy. Mild spinal stenosis. Moderate bilateral foraminal narrowing. L2-3: Posterior disc bulge with superimposed small right central disc protrusion. Moderate bilateral facet arthrosis and ligamentum flavum hypertrophy. Moderate spinal stenosis. Moderate left and moderate/severe right foraminal narrowing. L3-4: Posterior disc bulge. Moderate bilateral facet arthrosis and ligamentum flavum hypertrophy. Mild/moderate spinal stenosis. Moderate bilateral foraminal narrowing, greater on the left. L4-5: Posterior disc bulge eccentric to the left. Moderate bilateral facet arthrosis. No significant spinal stenosis. Severe bilateral foraminal narrowing. L5-S1: No focal disc abnormality. Severe bilateral facet arthrosis. No significant spinal stenosis. Mild right and moderate left foraminal narrowing. MRI/Spine Lumbar (Routine) IMPRESSION: 1. Acquired multilevel spinal stenosis, greatest at L2-3 categorized as moderat e. 2. Acquired multilevel foraminal narrowing, greatest at L4-5. See level by lev el comments above. 3. Retrolisthesis of L1-2 and L2-3. Mild levoscoliosis. Reading Location: [id number]
== END | disposition home or self-care (01) ==
LOC: MRI 16:17
PROVIDERS: PCP Internal Medicine; Referring Provider Student in an Organized Health Care Education/Training Program; Visit Provider Student in an Organized Health Care Education/Training Program
DX: M51.362 Other intervertebral disc degeneration, lumbar region with discogenic back pain and lower extremity pain (principal); M43.10 Spondylolisthesis, site unspecified
CPT/HCPCS: 72148

== ENCOUNTER 2025-03-13 13:12 | Emergency (ER) | payer MEDICARE, MEDICAID, SELFPAY ==
[2025-03-13] VITALS (7 sets, daily range): BP systolic 134–145; BP diastolic 78–90; PULSE 70–77; RESP 15–22; TEMP 36.8–37.2; O2SAT 94–99; BMI 30.8
--- NOTE | 2025-03-13 13:24 | EKG12_ITS ---
Test Reason : SOB Blood Pressure : */* mmHG Vent. Rate : 69 BPM Atrial Rate : 69 BPM P-R Int : 162 ms QRS Dur : 72 ms QT Int : 406 ms P-R-T Axes : 62 6 45 degrees QTcB Int : 435 ms Normal sinus rhythm Normal ECG Confirmed by JONEL SUE, AUSTIN ([id number]), material expeditor ANGELINE VELÁSQUEZ ([id number]) on 03/15/2025 10:54:02 AM Referred By: AFUA/ELICIA Confirmed By: AUSTIN REMY MD
--- NOTE | 2025-03-13 13:24 | EKG12_ITS ---
Test Reason : SOB Blood Pressure : */* mmHG Vent. Rate : 69 BPM Atrial Rate : 69 BPM P-R Int : 162 ms QRS Dur : 72 ms QT Int : 406 ms P-R-T Axes : 62 6 45 degrees QTcB Int : 435 ms Normal sinus rhythm Normal ECG Confirmed by JONEL SUE, AUSTIN ([id number]), advertising editor ANGELINE VELÁSQUEZ ([id number]) on 03/15/2025 10:54:02 AM Referred By: AFUA/ELICIA Confirmed By: AUSTIN REMY MD
[2025-03-13 13:28] LABS: Hematocrit 38.8 % (37-47); Hemoglobin 13.4 g/dL (12.0-15.0); Immature Granulocytes Count 0.010 X10^3/uL (0.0-0.0); Mean Corp Hgb Conc 34.5 g/dL (32-36); Mean Corpuscular Volume 82.2 fL (81-99); Mean Platelet Vol. 9.9 fl (6.2-12.0); NRBC Flagged by Analyzer 0 % (0-5); Platelet Count 300 K/mm3 (150-450); RBC Distribution Width CV 13.4 % (11.6-14.6); RBC Distribution Width SD 40.2 fl (35.1-43.9); Red Blood Count 4.72 M/mm3 (4.2-5.4); White Blood Count 7.7 K/mm3 (4.4-11.0)
--- OUTSIDE RECORDS SUMMARY | 2025-03-13 13:46 | XMS RPT_ITS | CCD ---
Author Organization [facility] Care Team Providers Care Supervisor Ship Maintenance Services Name Role Phone RADHA JETT Unavailable Unavailable RADHA JETT Unavailable Unavailable RADHA JETT Unavailable Unavailable RADHA JETT Unavailable Unavailable Willam Estrada MD Primary Care Provider Kimmy Mariscal RN Unavailable Dr. Willam Estrada Primary Care Provider Ya Talley Attending Provider Unavailable Dr. Willam Estrada Referring Provider Kori BRIMMING MACHINE OPERATOR, BRIMMING MACHINE OPERATOR-C Carrie Deng Attending Provider Dr. Tarik Villegas Attending Provider Leila Lawton RN Unavailable Unavailable Kimmy Mariscal RN Unavailable Willam Estrada MD Primary Care Provider Leila Lawton RN Unavailable Unavailable Jesús BARRAGAN, BRIMMING MACHINE OPERATORJosefinaC Soha Attending Provider Dr. Willam Estrada Primary Care Provider Dr. Willam Estrada Referring Provider Rola Browne RN Unavailable [phone] Willam Estrada MD Primary Care Provider Rola Browne RN Unavailable Rola Browne RN Unavailable Dr. Willam Estrada Primary Care Provider Dr. Willam Estrada Referring Provider Kori BARRAGAN, BRIMMING MACHINE OPERATOR-C Carrie Deng Attending Provider Friend, Dr. Trevino Attending Provider Pavan COLE, Rola Deng Unavailable Dr. Willam Estrada Primary Care Provider Mabel, Dr. Willam Pantoja Referring Provider Friend, Dr. Trevino Other Provider [phone] Willam Estrada Primary Care Provider Mabel, Dr. Willam Pantoja Referring Provider Friend, Dr. Trevino Attending Provider [phone] Friend, Dr. Trevino Other Provider [phone] Shekhar SUE, Mona Powers Unavailable Shaq Rush MD Unavailable Dr. Willam Estrada Primary Care Provider Mabel, Dr. Willam Pantoja Referring Provider Friend, Dr. Trevino Attending Provider [phone] Friend, Dr. Trevino Other Provider [phone] Willam Esrtada MD Primary Care Provider Rivas COLE, Alyssa Rushing Unavailable Ramone COLE, Oxana Unavailable Unavailable Pavan COLE, Rola Deng Unavailable [phone] Rivas COLE, Alyssa Rushing Unavailable Leila Lawton RN Unavailable Unavailable Juanita LUTZ, Kati Unavailable Unavailabl seun Hathaway RN, Alyssa Rushing Unavailable James SECTION LEADER SCREEN PRINTING.PRETZEL PACKER, Leilani Unavailable [place] SECTION LEADER SCREEN PRINTING.PARTS DEPARTMENT MANAGER, Allegra Unavailable [place] SECTION LEADER SCREEN PRINTING.PARTS DEPARTMENT MANAGER, Allegra Unavailable [place] SECTION LEADER SCREEN PRINTING.PARTS DEPARTMENT MANAGER, Allegra Unavailable Dr. Willam Estrada MD Primary Care Provider Rohan SUE, Dr. Robertson Emergency Provider David SUE, Dr. Vásquez Admit Provider David SUE, Dr. Vásquez Other Provider Gume SUE, Dr. Neal Ortiz Attending Provider David SUE, Dr. Vásquez Attending Provider Gume SUE, Dr. Neal Ortiz Other Provider Apoorva ALEXANDER, Dr. Mclaughlin Attending Provider Apoorva ALEXANDER, Dr. Mclaughlin Emergency Provider BhavinBhumi ALEXANDER, Dr. Gallego Attending Provider BhavinBhumi DO, Dr. Gallego Emergency Provider Kemi Robledo Attending Provider Kemi Robledo Referring Provider Alonso SUE, Dr. Robbins Attending Provider Yusra Guadalupe Attending Provider Yusra Guadalupe Referring Provider Mabel SUE, Dr. Willam Pantoja Referring Provider Raghav SUE, Dr. Lozano Attending Provider Victor Manuel SUE, Dr. New Attending Provider Ya Herrera Attending Provider Dr. León Cruz MD Attending Provider Dr. Blake Avilez MD Referring Provider INDIGO TORO Attending Provider INDIGO TORO Referring Provider INDIGO TORO Other Provider Wojciech SUE, Dr. Lu Attending Provider Mabel SUE, Dr. Willam Pantoja Primary Care Provider [place] SECTION LEADER SCREEN PRINTING.PARTS DEPARTMENT MANAGER, Allegra Unavailable Mabel SUE, Dr. Willam Pantoja Primary Care Provider Mabel SUE, Dr. Willam Pantoja Referring Provider [phone] Raghav SUE, Dr. Lozano Attending Provider Yusra Guadalupe Attending Provider Yusra Guadalupe Referring Provider [phone] Talampas, Willam D Primary Care Unavailable Corey Rubi Attending Unavailable Talampas, Willam D Primary Care Unavailable Julián Schrader Attending Unavailabl e Talampas, Willam D Primary Care Unavailable Lissette Guerin Attending Unavailable Blake Avilez Referring Unavailable Blake Avilez Attending Unavailable Talampas, Willam D Primary Care Unavailable Talampas, Willam D Primary Care Unavailable INDIGO NICHOLS Referring Unavailable INDIGO NICHOLS Attending Unavailable Rito Sanchez NP Referring Unavailable Talampas, Willam D Primary Care Unavailable Rito Sanchez NP Attending Unavailable Thalia Hernandez Admitting Unavailable Neal Dunaway Attending Unavailable Talampas, Willam D Primary Care Unavailable Thalia Hernadnez Consulting Unavailable Rosendo Gracia Attending Unavailable Talampas, Willam D Primary Care Unavailable Camden Smith Consulting Unavailable Camden Smith Admitting Unavailable Thalia Hernandez Consulting Unavailable Thalia Hernandez Admitting Unavailable Talampas, Willam D Primary Care Unavailable Thalia Hernandez Attending Unavailable Thalia Hernandez Consulting Unavailable Talampas, Willam D Primary Care Unavailable Thalia Hernandez Admitting Unavailable Neal Dunaway Attending Unavailable Neal Dunaway Consulting Unavailable Rosendo Gupta Attending Unavailable Talampas, Willam D Primary Care Unavailable Kemi Velez Referring Unavailable Talampas, Willam D Primary Care Unavailable León Moreno Attending Unavailable Talampas, Willam D Referring Unavailable Talampas, Willam D Referring Unavailable Blake Avilez Attending Unavailable Talampas, Willam D Primary Care Unavailable Rosendo Gracia Attending Unavailable Talampas, Willam D Primary Care Unavailable Camden Smith Admitting Unavailable Camden Smith Consulting Unavailable Rosendo Gracia Consulting Unavailable Talampas, Willam D Primary Care Unavailable Kemi Velez Attending Unavailable Velez, Kemi Referring Unavailable Talampas, Willam D Primary Care Unavailable DestineyYaa sealsyn Referring Unavailable DestineyYaa sealsyn Attending Unavailable Rosendo Gupta Attending Unavailable Talampas, Willam D Primary Care Unavailable Camden Smith Referring Unavailable Aly Jeffrey Attending Unavailable QUEENER, INDIGO Consulting Unavailable Talampas, Willam D Primary Care Unavailable ERINDIGO Referring Unavailable Talampas, Willam D Primary Care Unavailable Scot Soliman Attending Unavailabl e Yusra Cabello Attending Unavailable Destiney, Yusra Referring Unavailable Talampas, Willam D Primary Care Unavailable Camden Smith Attending Unavailable Uriel Caceres Attending Unavailable Talampas, Willam D Primary Care Unavailable Laura BARRAGAN, Rito Salcido Attending Unavailable Talampas, Willam D Primary Care Unavailable Talampas, Willam D Referring Unavailable Talampas, Willam D Primary Care Unavailable Shaq Rush Attending Unavailable Talampas, Willam D Primary Care Unavailable Talampas, Willam D Referring Unavailable Destiney, Yusra Attending Unavailable Talampas, Willam D Referring Unavailable Talampas, Willam D Primary Care Unavailable Destiney Yusra Attending Unavailable Talampas, Willam D Referring Unavailable Talampas, Willam D Primary Care Unavailable León Cruz Attending Unavailable Talampas, Willam D Primary Care Unavailable Uriel Caceres Attending Unavailable Talampas, Willam D Referring Unavailable León Moreno Attending Unavailable Talampas, Willam D Primary Care Unavailable Talampas, Willam D Referring Unavailable Talampas, Willam D Primary Care Unavailable Blake Avilez Attending Unavailable Talampas, Willam D Referring Unavailable Destiney, Yusra Attending Unavailable Talampas, Willam D Referring Unavailable Talampas, Willam D Primary Care Unavailable Talampas, Willam D Referring Unavailable Ya Herrera Attending Unavail able Talampas, Willam D Primary Care Unavailable Shaq Rush Attending Unavailable Talampas, Willam D Primary Care Unavailable Laura BARRAGAN, Rito Salcido Referring Unavailable Talampas, Willam D Primary Care Unavailable Rosendo Gupta Attending Unavailable James PEREZ.PRETZEL PACKER, Leilani Unavailable TALAMPAS, WILLAM D Primary Care Unavailable TALAMPAS, WILLAM D Attending Unavailable TALAMPAS, WILLAM D Primary Care Unavailable TALAMPAS, WILLAM D Referring Unavailable INDIGO NICHOLS Attending Unavailable TALAMPAS, WILLAM D Primary Care Unavailable HARPSTER, JUSTYNA Referring Unavailable LEILA RUBI Attending Unavailable TALAMPAS, WILLAM D Primary Care Unavailable SELF Referring Unavailable TALAMPAS, WILLAM D Attending Unavailable TALAMPAS, WILLAM D Primary Care Unavailable TALAMPAS, WILLAM D Referring Unavailable TALAMPAS, WILLAM D Primary Care Unavailable INDIGO NICHOLS Referring Unavailable TALAMPAS, WILLAM D Primary Care Unavailable TALAMPAS, WILLAM D Attending Unavailable TALAMPAS, WILLAM D Primary Care Unavailable TALAMPAS, WILLAM D Attending Unavailable TALAMPAS, WILLAM D Primary Care Unavailable TALAMPAS, WILLAM D Referring Unavailable INDIGO NICHOLS Attending Unavailable TALAMPAS, WILLAM D Primary Care Unavailable TALAMPAS, WILLAM D Referring Unavailable MARTHA DIOP Attending Unavailable TALAMPAS, WILLAM D Primary Care Unavailable TALAMPAS, WILLAM D Primary Care Unavailable RUFUS OHARA Attending Unavailable TALAMPAS, WILLAM D Primary Care Unavailable TALAMPAS, WILLAM D Primary Care Unavailable TALAMPAS, WILLAM D Attending Unavailable TALAMPAS, WILLAM D Primary Care Unavailable LEILA RUBI Referring Unavailable MCKEON, JONNATHAN D Attending Unavailable TALAMPAS, WILLAM D Primary Care Unavailable MCKEON, JONNATHAN D Referring Unavailable TALAMPAS, WILLAM D Primary Care Unavailable TALAMPAS, WILLAM D Primary Care Unavailable ALEJANDRINA BARRIOS Referring Unavailable TALAMPAS, WILLAM D Primary Care Unavailable HARPSTER, JUSTYNA Referring Unavailable TALAMPAS, WILLAM D Primary Care Unavailable MONA CORRIGAN Attending Unavailable TALAMPAS, WILLAM D Primary Care Unavailable MONA CORRIGAN Referring Unavailable TALAMPAS, WILLAM D Primary Care Unavailable DEANNA PAGAN Attending Unavailable TALAMPAS, WILLAM D Primary Care Unavailable MONA CORRIGAN Referring Unavailable TALAMPAS, WILLAM D Primary Care Unavailable MONA CORRIGAN Attending Unavailable Allergies Allergy Classification Reported Allergen(s) Allergy Type Date of Onset Reaction(s) Facility Acetaminophen / HYDROcodone (1 source) Acetaminophen / HYDROcodone Drug Allergy 09-07-20 19 GI Upset [facility] Adrenergic Agonists (1 source) Pseudoephedrine Drug Allergy 09-21-19 16 Intolerance [facility] Cephalosporins (antibiotic) (2 sources) Cephalosporins (Antibiotic) Drug Allergy 05-28-20 23 Rash, Hives [facility] Corticosteroids (1 source) predniSONE Drug Allergy 08-07-20 22 Intolerance [facility] Opioid Agonists (1 source) HYDROmorphone Drug Allergy 11-17-19 11 Mental Status Change [facility] Work Phone: Penicillins (antibiotic) (1 source) Penicillins Drug Allergy 05-01-20 05 Hives, Other: See Comments [facility] Serotonin Reuptake Inhibitors (SSRIs) (2 sources) PARoxetine Drug Allergy 05-01-20 05 Intolerance, Mental Status Change, Diarrhea [facility] (20 sources) Acetaminophen / HYDROcodone; Translations: [HYDROCODONE-ACETA MINOPHEN] Drug Allergy 09-07-20 19 GI Upset [facility] (20 sources) FLUoxetine; Translations: [FLUOXETINE HCL] Drug Allergy 05-01-20 05 Mental Status Change, Diarrhea [facility] Work Phone: (20 sources) House dust mite; Translations: [DUST MITES] Propensity to adverse reactions 02-14-20 07 [facility] (20 sources) HYDROmorphone; Translations: [HYDROMORPHONE (BULK)] Drug Allergy 11-17-19 11 Mental Status Change [facility] Work Phone: (20 sources) PARoxetine; Translations: [PAROXETINE] Drug Allergy 02-18-20 19 Intolerance [facility] Work Phone: (20 sources) Penicillins; Translations: [PENICILLINS] Drug Allergy 05-01-20 05 Hives, Other: See Comments [facility] (20 sources) Pseudoephedrine; Translations: [PSEUDOEPHEDRINE] Drug Allergy 09-21-19 16 Intolerance [facility] Work Phone: (16 sources) Acetaminophen Drug Allergy 04-26-20 20 Upset Stomach [facility] (20 sources) FLUoxetine Drug Allergy 04-26-20 20 Chest tightness [facility] (20 sources) HYDROcodone Drug Allergy 04-26-20 20 Upset Stomach [facility] (20 sources) HYDROmorphone Drug Allergy 12-01-19 Altered mental status [facility] (20 sources) Penicillins Drug Allergy 05-01-20 05 Hives, Other: See Comments [facility] (20 sources) Penicillins Allergy to substance 02-17-20 22 Hives [facility] (20 sources) house dust mite; Translations: [house dust mite] Allergy to substance 03-30-20 NEEDS FOLLOW-UP [facility] (20 sources) predniSONE; Translations: [PREDNISONE] Drug Allergy 08-07-20 Intolerance [facility] Comment on above: Exacerbation of side effects (20 sources) Cephalosporins (Antibiotic); Translations: [CEPHALOSPORINS] Allergy to substance 05-26-20 Rash [facility] (20 sources) Cephalosporins (Antibiotic) Drug Allergy 05-28-20 Rash [facility] (20 sources) cefdinir; Translations: [CEFDINIR] Drug Allergy 05-31-20 [facility] Work Phone: (20 sources) Doxycycline; Translations: [DOXYCYCLINE] Drug Allergy 04-20-20 24 GI Upset [facility] (15 sources) amLODIPine; Translations: [AMLODIPINE] Drug Allergy 11-26-19 Intolerance [facility] (3 sources) egg extract Drug Allergy 11-17-19 Diarrhea [facility] Comment on above: stomach aches (9 sources) Penicillins Drug Allergy 05-01-20 05 Hives, Other: See Comments [facility] (1 source) Cephalosporins (Antibiotic) Drug allergy (disorder) 02-05-20 [facility] (1 source) egg extract Drug Allergy 02-05-20 25 [facility] (1 source) FLUoxetine Drug Allergy 02-05-20 25 [facility] (1 source) HYDROcodone Drug Allergy 02-05-20 25 [facility] (1 source) HYDROmorphone Drug Allergy 02-05-20 25 [facility] (1 source) Penicillins Drug allergy (disorder) 02-05-20 25 [facility] (1 source) predniSONE Drug Allergy 02-05-20 25 [facility] (1 source) Pseudoephedrine Drug Allergy 02-05-20 25 [facility] Medications Current Medications Medication Drug Class(es) Dates Sig (Normalized) Sig (Original) [id number] 200 actuat albuterol 0.09 mg/actuat metered dose inhaler (20 sources) beta2-Adrenergic Agonist Start: 11-18-2024 take 2 puff(s) by inhalation every four hours as needed albuterol HFA (VENTOLIN HFA) 90 mcg/actuation inhaler Indications: Moderate persistent asthma without complication (HCC) Inhale 2 Puffs as instructed every 4 hours as needed. 6.7 g 5 11/18/2024 Active Start: 11-16-2024 Albuterol Sulf ate (Ventolin Hfa) 90 mcg/actuation HFA aerosol inhaler Active 1 - 2 NMA INHALATION EVERY 4 HOURS NEEDED as needed for Wheezing 1 November 16, 2024 3:38pm Start: 04-03-2023 End: 08-06-2023 take 2 puff(s) by inhalation every four hours as needed for wheezing albuterol HFA (PROAIR HFA) 90 mcg/actuation inhaler Inhale 2 Puffs as instructed every 4 hours as needed for wheezing/shortness of breath. 1 Each 2 04/03/2023 08/06/2023 Discontinued Start: 03-11-2023 take 2 puff(s) by in halation every four hours as needed for wheezing albuterol HFA (PROAIR HFA) 90 mcg/actuation inhaler Inhale 2 Puffs as instructed every 4 hours as needed for wheezing/shortness of breath. 1 Each 1 03/11/2023 Active Start: 11-15-2021 take 2.5 mg by inhal ation every four hours as needed Albuterol Sulfate 2.5 mg /3 mL (0.083 %) solution for nebulization Active 2.5 mg INHALATION Q4H as needed for shortness of breath November 15, 2021 1:00am Start: 10-21-2019 End: 11-18-2024 take 2 puff(s) by inhalation every four hours as needed albuterol HFA (VENTOLIN HFA) 90 mcg/actuation inhaler Indications: Moderate persistent asthma without complication Inhale 2 Puffs as instructed every 4 hours as needed. 18 g 3 07/10/2024 11/18/2024 Discontinued Start: 07-22-2018 End: 11-18-2024 albuterol (PROVENTIL) 2.5 mg /3 mL (0.083 %) nebulizer solution Indications: Moderate persistent asthma without complication (HCC) Use 3 mL via nebulizer every 4 hours as needed for wheezing/shortness of breath. 50 mL 5 11/18/2024 Active Start: 08-08-2015 take 1 puff(s) by in halation every four hours as needed Albuterol Sulfate (Ventolin Hfa) 1 INHALER inhaler Active 1 - 2 PUFF INHALATION EVERY 4 HOURS NEEDED August 08, 2015 5:06pm Start: 08-08-2015 End: 11-16-2024 Albuterol Sulfate (Ventolin Hfa) 1 INHALER inhaler Discontinued 1 - 2 NMA INHALATION EVERY 4 HOURS NEEDED as needed for Wheezing August 08, 2015 1:00am November 16, 2024 3:38pm Start: 08-08-2015 take 1 puff(s) by in halation every four hours as needed Albuterol Sulfate (Ventolin Hfa) 1 INHALER inhaler Active 1 - 2 PUFF INHALATION EVERY 4 HOURS NEEDED August 08, 2015 12:00am Start: 08-08-2015 take 1 puff(s) by in halation every four hours as needed Albuterol Sulfate (Ventolin Hfa) 1 INHALER inhaler Active 1 - 2 PUFF INHALATION EVERY 4 HOURS NEEDED August 08, 2015 1:00am Start: 08-08-2015 take 1 puff(s) by in halation every four hours as needed Albuterol Sulfate (Ventolin Hfa) 1 INHALER inhaler Active 1 - 2 PUFF INHALATION EVERY 4 HOURS NEEDED August 08, 2015 1:00am Comment on above: Use 3 mL via nebuliz er every 4 hours as needed for wheezing/shortness of breath. Inhale 2 Puffs as in structed every 4 hours as needed. Inhale 2 Puffs as in structed every 4 hours as needed for wheezing/shortness of breath. ALPRAZolam 0.5 mg oral tablet (20 sources) Benzodiazepine Start: 07-30-2015 End: 04-09-2025 ALPRAZolam (XANAX) 0.5 mg tablet Indications: Anxiety and depression Take 1 tablet by mouth at bedtime as needed for up to 120 days. Patient should start on December 10, 2024. 30 tablet 3 12/10/2024 04/09/2025 Active Start: 07-30-2015 End: 04-09-2023 take 1 tablet by mouth at bedtime as needed ALPRAZolam (XANAX) 0.5 mg tablet Indications: Anxiety and depression Take 1 tablet by mouth at bedtime as needed for up to 60 days. 30 tablet 1 07/19/2020 09/12/2020 Discontinued Start: 07-30-2015 End: 12-04-2021 take 1 tablet by mouth every 30 days at bedtime as needed ALPRAZolam (XANAX) 0.5 mg tablet Indications: Anxiety and depression Take 1 tablet by mouth at bedtime as needed for up to 30 days. 30 tablet 03/15/2021 12/04/2021 Discontinued Comment on above: Take 1 tablet by jagjit th at bedtime as needed for up to 120 days. Do not start before December 09, 2021. Take 1 tablet by jagjit th at bedtime as needed for up to 30 days. Take 1 tablet by jagjit th at bedtime as needed for up to 120 days. Take 1 tablet by jagjit th at bedtime as needed for up to 120 days. Do not start before April 11, 2022. Take 1 tablet by jagjit th at bedtime as needed for up to 120 days. Do not start before August 11, 2022. Take 1 tablet by jagjit th at bedtime as needed for up to 60 days. Take 1 tablet by jagjit th at bedtime as needed for up to 120 days. Do not start before April 10, 2023. Take 1 tablet by jagjit th at bedtime as needed for up to 120 days. Do not start before August 08, 2023. Take 1 tablet by jagjit th at bedtime as needed for up to 120 days. Do not start before December 08, 2023. amLODIPine 5 mg oral tablet (20 sources) Dihydropyridine Calcium Channel Telma Start: take 1 tablet by mouth once daily amLODIPine (NORVASC) 5 mg tablet Take 5 mg by mouth once daily. 90 tablet 11/18/2024 Active Start: 10-30-2024 End: 12-24-2024 take 1 tablet by mouth twice daily Amlodipine 5 mg tablet Discontinued 5 mg PO TWICE A DAY 60 November 06, 2024 3:02pm December 24, 2024 2:11pm Start: 09-28-2024 End: 10-30-2024 take 1 tablet by mouth once daily Amlodipine 5 mg tablet Discontinued 5 mg PO daily September 28, 2024 1:00am October 30, 2024 5:07pm BIPAP (20 sources) Start: 11-20-2023 BIPAP Indicati ons: YARY (obstructive sleep apnea) Initiate BiPAP @ 20/14 cm of water with heated humidification. Ti Max 1.0, Ti Min 0.3, trigger medium, cycle high. Mask (medium AirFit F10 full face mask or per patient preference) optional chin strap (if indicated) , filters, tubing, humidifier and lifetime supplies. 1 Each 11/20/2023 Active Start: 11-20-2023 BIPAP Indicati ons: YARY (obstructive sleep apnea) Initiate BiPAP @ 20/14 cm of water with heated humidification. Ti Max 1.0, Ti Min 0.3, trigger medium, cycle high. Mask (medium AirFit F10 full face mask or per patient preference) optional chin strap (if indicated) , filters, tubing, humidifier and lifetime supplies. 1 Each 0 11/20/2023 Active Start: 11-19-2023 End: 11-20-2023 BIPAP Indications: YARY (obst ructive sleep apnea) Initiate BiPAP @ 20/14 cm of water with heated humidification. Ti Max 1.0, Ti Min 0.3, trigger medium, cycle high. Mask (medium AirFit F10 full face mask or per patient preference) optional chin strap (if indicated) , filters, tubing, humidifier and lifetime supplies. 1 Each 0 11/19/2023 11/20/2023 Discontinued Start: 06-07-2014 End: 11-19-2023 BIPAP Indications: YARY (obst ructive sleep apnea) Initiate BiPAP @ 20/14 cm of water with heated humidification. Ti Max 1.0, Ti Min 0.3, trigger medium, cycle high. Mask (medium AirFit F10 full face mask or per patient preference) optional chin strap (if indicated) , filters, tubing, humidifier and lifetime supplies. 1 Device 0 06/07/2014 11/19/2023 Discontinued Start: 06-07-2014 BIPAP Indicati ons: YARY (obstructive sleep apnea) Initiate BiPAP @ 20/14 cm of water with heated humidification. Ti Max 1.0, Ti Min 0.3, trigger medium, cycle high. Mask (medium AirFit F10 full face mask or per patient preference) optional chin strap (if indicated) , filters, tubing, humidifier and lifetime supplies. 1 Device 0 06/07/2014 Active Comment on above: Initiate BiPAP @ 20/ 14 cm of water with heated humidification. Ti Max 1.0, Ti Min 0.3, trigger medium, cycle high. Mask (medium AirFit F10 full face mask or per patient preference) optional chin strap (if indicated) , filters, tubing, humidifier and lifetime supplies. Blood-Glucose Meter monitoring kit (20 sources) Start: 07-13-2019 Blood-Glucose Meter monitoring kit Indications: Type 2 diabetes mellitus without complication, without long-term current use of insulin (HCC) Insurance covered or per patient choice. Test blood sugar twice daily plus as needed for symptoms of blood sugars being too high or low. Dx: Type 2 DM - Uncontrolled E11.65 Insulin:No 1 Each 07/13/2019 Active Start: 07-13-2019 Blood-Glucose Meter monitoring kit Indications: Type 2 diabetes mellitus without complication, without long-term current use of insulin (HCC) Insurance covered or per patient choice. Test blood sugar twice daily plus as needed for symptoms of blood sugars being too high or low. Dx: Type 2 DM - Uncontrolled E11.65 Insulin:No 1 Each 0 07/13/2019 Active Comment on above: Insurance covered or per patient choice. Test blood sugar twice daily plus as needed for symptoms of blood sugars being too high or low. Dx: Type 2 DM - Uncontrolled E11.65 Insulin:No brompheniramine maleate 0.4 mg/ml / dextromethorphan hydrobromide 2 mg/ml / pseudoephedrine hydrochloride 6 mg/ml oral solution (1 source) alpha-Adrenergic Agonist, Uncompetitive N-nkinjd-A-aspartate Receptor Antagonist, Sigma-1 Agonist Start: 11-27-19 End: 12-04-19 23 take 10 mL by mouth every six hours as needed Brompheniramine-Ps eudoeph-DM (BROMFED DM) 2-30-10 mg/5 mL syrup Take 10 mL by mouth four times daily as needed for up to 7 days. 240 mL 0 11/26/2022 12/03/2022 Active Comment on above: Take 10 mL by mouth four times daily as needed for up to 7 days. busPIRone hydrochloride 15 mg oral tablet (20 sources) Start: 05-20-20 End: 04-06-20 take 0.5 tablet by mouth twice daily busPIRone (BUSPAR) 15 mg tablet Indications: Anxiety and depression Take 0.5 tablets by mouth two times a day. 30 tablet 11 04/07/2024 Active Start: 07-11-2018 take 7.5 mg by mouth twice daily Buspirone 5 MG tablet Active 7.5 mg PO TWICE A DAY July 11, 2018 7:36pm Start: 07-11-2018 take 7.5 mg by mouth twice daily Buspirone Active 7.5 MG PO TWICE A DAY July 11, 2018 7:36pm Start: 08-01-2015 End: 07-11-2018 take 7.5 mg by mouth three times daily Buspirone 5 MG tablet Discontinued 7.5 mg PO THREE TIMES A DAY 150 August 01, 2015 1:00am July 11, 2018 7:36pm Start: 08-01-2015 End: 07-11-2018 take 7.5 mg by mouth three times daily Buspirone Discontinued 7.5 MG PO THREE TIMES A DAY 150 August 01, 2015 1:00am July 11, 2018 7:36pm Start: 06-13-2014 End: 08-01-2015 take 7.5 mg by mouth twice daily Buspirone 5 MG tablet Discontinued 7.5 mg PO TWICE A DAY June 13, 2014 12:00am August 01, 2015 10:09am Start: 06-13-2014 End: 08-01-2015 take 7.5 mg by mouth twice daily Buspirone Discontinued 7.5 MG PO TWICE A DAY June 13, 2014 12:00am August 01, 2015 10:09am Comment on above: Take 0.5 tablets by mouth twice daily. carvedilol 25 mg oral tablet (20 sources) alpha-Adrenergic Telma, beta-Adrenergic Telma Start: 10-02-2024 End: 10-02-2024 take 2 tablets by mouth twice daily at mealtime Carvedilol 12.5 mg tablet Discontinued 25 mg PO TWICE A DAY 60 October 02, 2024 3:26pm October 02, 2024 3:39pm must administer with a meal/food Start: 10-02-2024 take 1 tablet by jagjit th twice daily at mealtime carvedilol (COREG) 25 mg tablet Take 25 mg by mouth two times a day with meals. 10/26/2024 Active Start: 09-21-2024 End: 10-02-2024 take 1 tablet by mouth twice daily at mealtime Carvedilol 12.5 mg tablet Discontinued 12.5 mg PO TWICE A DAY 60 September 21, 2024 1:00am October 02, 2024 3:27pm must administer with a meal/food Start: 01-20-2024 End: 11-18-2024 take 1 tablet by mouth twice daily at mealtime Carvedilol (Coreg) 6.25 mg tablet Discontinued 6.25 mg PO TWICE A DAY 60 January 20, 2024 12:00am September 21, 2024 5:55pm must administer with a meal/food cefdinir 300 mg oral capsule (13 sources) Cephalosporin Antibacterial Start: 05-26-2023 take 300 mg by mouth every twelve hours Cefdinir Active 300 MG PO Q12H May 26, 2023 12:00am Start: 05-24-2023 End: 06-03-2023 take 1 capsule by mouth twice daily cefdinir (OMNICEF) 300 mg capsule Indications: Sinobronchitis Take 1 capsule by mouth twice daily for 10 days. 20 capsule 05/24/2023 05/31/2023 Discontinued Start: 12-05-2022 End: 12-15-2022 take 1 capsule by mouth twice daily cefdinir (OMNICEF) 300 mg capsule Indications: Sinobronchitis Take 1 capsule by mouth twice daily for 10 days. 20 capsule 0 12/05/2022 12/05/2022 Discontinued Comment on above: Take 1 capsule by mo [facility] twice daily for 10 days. cetirizine hydrochloride 10 mg oral tablet (20 sources) Histamine-1 Receptor Antagonist Start: 05-20-20 End: 12-22-19 take 1 tablet by mouth once daily as needed Cetirizine 10 mg tablet Active 10 mg PO DAILY as needed for ALLERGIES November 15, 2021 1:00am Comment on above: Take 1 tablet by jagjit once daily. cholecalciferol 0.01 mg oral capsule (20 sources) Vitamin D Start: 05-26-20 take 10 ug by mouth once daily Cholecalciferol (Vitamin D3) Active 10 MCG PO DAILY May 26, 2023 12:00am Start: 12-05-2022 End: 08-06-2023 take 1 capsule by mouth once daily cholecalciferol, vitamin D3, 10 mcg (400 unit) cap Take 1 capsule by mouth once daily. 12/05/2022 08/06/2023 Discontinued Comment on above: Take 1 capsule by mo [facility] once daily. COVID-19 antigen test (COVID-19 AT-HOME TEST) kit (20 sources) Start: COVID-19 antigen test (COVID-19 AT-HOME TEST) kit Indications: Acute viral syndrome Use as directed for signs and symptoms of COVID 4 Kit 2 05/19/2024 Active fluticasone propionate 0.05 mg/actuat metered dose nasal spray (20 sources) Corticosteroid Start: End: take 50 ug nasal route once daily Fluticasone Propionate (Allergy Relief (Fluticasone)) 50 mcg/actuation spray,suspension Discontinued 2 NMA INTRANASAL DAILY January 04, 2022 12:00am September 08, 2024 4:40pm administer into each nostril Start: 01-04-2022 take 1 spray(s) nasa l route once daily Fluticasone Propionate (Allergy Relief (Fluticasone)) 50 mcg/actuation spray,suspension Active 2 SPRAY INTRANASAL DAILY January 04, 2022 12:00am administer into each nostril Start: 02-23-2021 End: 09-14-2024 take 2 spray(s) by mouth once daily as needed fluticasone (FLONASE) 50 mcg/actuation nasal spray Use 2 Sprays in each nostril once daily as needed for cold/allergy symptoms. Rinse mouth after use. 1 Each 5 09/14/2024 Active Start: 12-25-2019 End: 03-31-2021 take 1 spray(s) nasal route once daily fluticasone (FLONASE) 50 mcg/actuation nasal spray Indications: Allergic rhinitis, unspecified seasonality, unspecified trigger Use 1 [place] in each nostril once daily. 1 Bottle 5 12/25/2019 03/31/2021 Discontinued Comment on above: Use 2 Sprays in each nostril once daily. Rinse mouth after use. fluticasone / salmeterol (13 sources) Corticosteroid, beta2-Adrenergic Agonist Start: take 1 puff(s) by inhalation twice daily fluticasone-salmetero l (ADVAIR) 500-50 mcg/dose dsdv Indications: Moderate persistent asthma without complication (HCC) Inhale 1 Puff as instructed two times a day. 1 Each 5 11/25/2024 Active Start: 11-25-2024 take 1 puff(s) by in halation twice daily fluticasone-salmeterol (ADVAIR) 500-50 mcg/dose dsdv Indications: Moderate persistent asthma without complication Inhale 1 Puff as instructed two times a day. 1 Each 5 11/25/2024 Active Start: 11-25-2024 End: 11-25-2024 take 1 puff(s) by inhalation twice daily fluticasone-salmeterol (ADVAIR) 500-50 mcg/dose dsdv Indications: Moderate persistent asthma without complication Inhale 1 Puff as instructed two times a day. 1 Each 5 11/25/2024 11/25/2024 Discontinued furosemide 20 mg oral tablet (20 sources) Loop Diuretic Start: 11-18-2024 End: 03-07-2025 take 1 tablet by mouth once daily furosemide (LASIX) 20 mg tablet Take 1 tablet by mouth once daily. 90 tablet 03/08/2025 Active Start: 09-26-2015 End: 03-30-2024 take 1 tablet by mouth once daily Furosemide 20 MG tablet Discontinued 20 mg PO DAILY September 26, 2015 1:00am January 20, 2024 3:54pm Start: 06-13-2014 End: 08-01-2015 take 1 tablet by mouth once daily Furosemide 20 MG tablet Discontinued 20 mg PO DAILY June 13, 2014 12:00am August 01, 2015 10:10am Comment on above: Take 1 tablet by jagjit th once daily. gabapentin 300 mg oral capsule (20 sources) Anti-epileptic Agent Start: 11-15-2021 take 3 capsules by mouth in the evening Gabapentin (Neurontin) 300 mg capsule Active 600 MG PO .COMPLEX November 15, 2021 3:01pm 600 mg PO take 2 caps in the am and 3 caps in the evening; Start: 07-19-2020 End: 03-07-2024 gabapentin (NEURONTIN) 300 m g capsule Indications: Neuropathy Take 2 capsules by mouth every morning AND 3 capsules every evening. Do all this for 180 days. Do not start before December 09, 2021. 150 capsule 5 12/09/2021 06/11/2022 Discontinued Start: 07-11-2018 End: 06-08-2025 gabapentin (NEURONTIN) 300 m g capsule Indications: Neuropathy Take 2 capsules by mouth two times a day for 180 days. Patient should start on December 10, 2024. 120 capsule 5 12/10/2024 06/08/2025 Active Comment on above: Take 2 capsules by m outh every morning AND 3 capsules every evening. Do all this for 180 days. Do not start before December 09, 2021. Take 2 capsules by m outh every morning AND 3 capsules every evening. Do all this for 180 days. Take 2 capsules by m outh every morning AND 3 capsules every evening. Do all this for 120 days. Take 2 capsules by m outh two times a day for 180 days. gemfibrozil 600 mg oral tablet (20 sources) Peroxisome Proliferator Receptor alpha Agonist Start: 06-13-20 14 End: 04-06-20 24 take 1 tablet by mouth twice daily gemfibrozil (LOPID) 600 mg tablet Take 1 tablet by mouth two times a day. 60 tablet 04/07/2024 Active Comment on above: Take 1 tablet by jagjit twice daily. glipiZIDE 5 mg oral tablet (20 sources) Sulfonylurea Start: 08-07-20 22 End: 11-19-19 25 take 1 tablet by mouth once daily glipiZIDE (GLUCOTROL) 5 mg tablet Take 1 tablet by mouth once daily. May take extra half to whole pill daily as needed for blood sugar over 200 60 tablet 5 11/18/2024 Active Comment on above: Take 1 tablet by jagjit th once daily. As directed Take 1 tablet by jagjit th once daily. May take extra half to whole pill daily as needed for blood sugar over 200 Take 1 tablet (5 mg) by mouth once daily. May take extra half to whole pill daily as needed for blood sugar over 200 ibuprofen 600 mg oral tablet (20 sources) Nonsteroidal Anti-inflammatory Drug Start: 07-29-20 take 1 tablet by mouth twice daily as needed for pain ibuprofen (MOTRIN) 600 mg tablet Indications: Neck pain, musculoskeletal Take 1 tablet by mouth two times a day as needed for pain. 60 tablet 5 07/29/2024 Active Start: 11-15-2021 take 600 mg by mouth twice daily Ibuprofen Active 600 MG PO TWICE A DAY November 15, 2021 12:00am Start: 03-31-2021 End: 07-29-2024 take 1 tablet by mouth every twelve hours as needed for pain Ibuprofen 600 mg tablet Active 600 mg PO Q12H as needed for pain November 15, 2021 1:00am Start: 11-25-2020 End: 03-31-2021 take 1 tablet by mouth every six hours as needed for pain ibuprofen (MOTRIN) 600 mg tablet Indications: Neck pain, musculoskeletal Take 1 tablet by mouth every 6 hours as needed for Pain (take with food). 90 tablet 11/25/2020 03/31/2021 Discontinued Comment on above: Take 1 tablet by jagjit th every 12 hours. ipratropium bromide 0.2 mg/ml inhalation solution (20 sources) Anticholinergic Start: 08-21-20 take 1 mL by inhalation every six hours as needed for wheezing Ipratropium [place] 0.02 % solution Active 2.5 mL INHALATION EVERY 6 HOURS as needed for shortness of breath or wheezing 75 August 21, 2021 1:00am Start: 07-22-2018 End: 11-18-2024 ipratropium (ATROVENT) 0.02 % nebulizer solution Indications: Moderate persistent asthma without complication (HCC) Use 2.5 mL via nebulizer four times a day as needed. Unit dose pack of 50 50 mL 5 11/18/2024 Active Comment on above: Use 2.5 mL via nebul izer four times daily. Unit dose pack of 50 lisinopril 20 mg oral tablet (20 sources) Angiotensin Converting Enzyme Inhibitor Start: 09-14-2024 take 1 tablet by mouth twice daily lisinopril (ZESTRIL) 20 mg tablet Take 1 tablet by mouth two times a day. 60 tablet 11 09/14/2024 Active Start: 08-05-2024 End: 10-16-2024 take 1 tablet by mouth once daily Lisinopril 20 mg tablet Discontinued 20 mg PO DAILY 60 August 05, 2024 11:41am October 16, 2024 3:15pm Start: 07-23-2023 End: 09-11-2024 take 1 tablet by mouth twice daily Lisinopril 20 mg tablet Discontinued 20 mg PO TWICE A DAY 60 December 19, 2023 3:00pm August 05, 2024 11:41am Start: 07-22-2015 End: 12-19-2023 take 1 tablet by mouth once daily Lisinopril 20 MG tablet Discontinued 20 mg PO DAILY 30 August 02, 2015 8:42am December 19, 2023 3:02pm Comment on above: Take 1 tablet by jagjit th once daily. Take 1 tablet by jagjit th two times a day. 24 hr metFORMIN hydrochloride 500 mg extended release oral tablet (20 sources) Biguanide Start: 0 End: take 1 tablet by mouth twice daily metFORMIN (GLUCOPHAGE) 500 mg tablet Indications: Type 2 diabetes mellitus without complication, without long-term current use of insulin (HCC) Take 1 tablet by mouth twice daily. 60 tablet 11 03/15/2021 08/31/2021 Discontinued (Side Effects) Start: 07-11-2018 End: 04-06-2024 take 1 tablet by mouth twice daily before mealtime metFORMIN ER (GLUCOPHAGE XR) 500 mg 24 hr tablet Take 1 tablet by mouth two times a day before meals. 60 tablet 11 04/07/2024 Active Comment on above: Take 1 tablet by jagjit th twice daily before meals. Nebulizer (20 sources) Start: 08-23-2015 Nebulizer Indications: Moderate persistent asthma with acute exacerbation (HCC) NEBULIZER FOR HOME USE. DX: J45.42 1 Each 0 08/23/2015 Active Start: 08-23-2015 Nebulizer [place] cations: Moderate persistent asthma with acute exacerbation NEBULIZER FOR HOME USE. DX: J45.42 1 Each 0 08/23/2015 Active Comment on above: NEBULIZER FOR HOME U SE. DX: J45.42 Nebulizer and Compressor For Neb (20 sources) Start: 05-24-2023 Nebulizer and Compressor For Neb Indications: Chronic obstructive pulmonary disease, unspecified COPD type (HCC) , Moderate persistent asthma without complication (HCC) Use for albuterol and ipratropium nebulizer treatments every 4 hours as needed 1 Each 05/24/2023 Active Start: 05-24-2023 Nebulizer and Compressor For Neb Indications: Chronic obstructive pulmonary disease, unspecified COPD type (HCC) , Moderate persistent asthma without complication Use for albuterol and ipratropium nebulizer treatments every 4 hours as needed 1 Each 05/24/2023 Active Comment on above: Use for albuterol an d ipratropium nebulizer treatments every 4 hours as needed nirmatrelvir tablet 300 mg (150 mg x 2) and ritonavir tablet 100 mg in a dose pack (PAXLOVID) (1 source) Start: 05-20-20 End: 05-25-20 nirmatrelvir tablet 300 mg (150 mg x 2) and ritonavir tablet 100 mg in a dose pack (PAXLOVID) Indications: COVID Administer TWO pink nirmatrelvir 150 mg tablets and ONE white ritonavir 100 mg tablet for a total of three tablets twice daily. 30 tablet 05/20/2024 05/25/2024 Active pantoprazole 20 mg delayed release oral tablet (20 sources) Proton Pump Inhibitor Start: 10-11-19 End: 11-19-19 take 1 tablet by mouth twice daily before mealtime pantoprazole DR (PROTONIX) 20 mg tablet Take 1 tablet by mouth two times a day. Take on empty stomach, 1/2 hr before meal. As directed 60 tablet 5 11/18/2024 Active Start: 04-09-2023 End: 07-29-2024 take 1 tablet by mouth twice daily Pantoprazole (Protonix) 40 mg tablet,delayed release (DR/EC) Discontinued 40 mg PO TWICE A DAY 60 July 08, 2023 8:43am October 11, 2023 1:10pm Comment on above: Take 40 mg by mouth two times a day. Take 1 tablet by jagjit th two times a day. Take on empty stomach, 1/2 hr before meal. potassium chloride 10 meq extended release oral tablet (20 sources) Start: 05-20-2020 End: 11-18-2024 take 1 tablet by mouth once daily at breakfast potassium chloride (K-TAB) 10 mEq tablet Take 1 tablet by mouth daily with breakfast. 30 tablet 11 11/18/2024 Active Start: 07-11-2018 take 1 tablet by jagjit th once daily Potassium Chloride 10 MEQ tablet Active 10 meq PO DAILY July 11, 2018 12:00am Start: 06-13-2014 End: 08-01-2015 take 10 mEq by mouth once daily Potassium Chloride 20 MEQ Tablet.Er Discontinued 10 meq PO DAILY June 13, 2014 12:00am August 01, 2015 10:10am Start: 06-13-2014 End: 08-01-2015 take 10 mEq by mouth once daily Potassium Chloride Dis continued 10 MEQ PO DAILY June 13, 2014 12:00am August 01, 2015 10:10am Comment on above: Take 1 tablet by jagjit th daily with breakfast. sertraline 100 mg oral tablet (20 sources) Serotonin Reuptake Inhibitor Start: 8 End: 4 take 2 tablets by mouth once daily sertraline (ZOLOFT) 100 mg tablet Indications: Anxiety and depression Take 2 tablets by mouth once daily. 60 tablet 04/07/2024 Active Comment on above: Take 2 tablets by mo [facility] once daily. traZODone hydrochloride 100 mg oral tablet (20 sources) Serotonin Reuptake Inhibitor Start: 4 End: 4 take 1 tablet by mouth once daily at bedtime traZODone (DESYREL) 100 mg tablet Indications: Anxiety and depression Take 1 tablet by mouth daily at bedtime. 30 tablet 04/07/2024 Active Comment on above: Take 1 tablet by jagjit daily at bedtime. Completed/Discontinued Medications Medication Drug Class(es) Dates Sig (Normalized) Sig (Original) acetaminophen 325 mg / oxyCODONE hydrochloride 5 mg oral tablet (20 sources) Opioid Agonist Start: 04-25-2020 End: 04-28-2020 Oxycodone-Acetamino phen 1 TABLET tablet Discontinued 1 {tbl} PO EVERY 6 HOURS NEEDED as needed for Pain 08 11April 25, 2020 April 27, 2020 12:00am April 28, 2020 12:02am Start: 04-25-2020 End: 04-28-2020 take 1 tablet by mouth every six hours as needed Oxycodone-Acetaminophen Discontinued 1 TABLET PO EVERY 6 HOURS NEEDED 08 11April 25, 2020 April 28, 2020 12:02am Start: 07-29-2019 End: 08-06-2019 Oxycodone-Acetaminophen 1 TA BLET tablet Discontinued 1 {tbl} PO EVERY 6 HOURS NEEDED as needed for Pain 12 3 July 29, 2019 July 31, 2019 1:00am August 06, 2019 1:08am Start: 07-29-2019 End: 08-06-2019 take 1 tablet by mouth every six hours as needed Oxycodone-Acetaminophen Discontinued 1 TABLET PO EVERY 6 HOURS NEEDED 12 3 July 29, 2019 August 06, 2019 1:08am amylase [id number] unt / lipase [id number] unt / protease [id number] unt delayed release oral capsule (20 sources) Start: 07-26-2023 End: 10-11-2023 take [id number] capsules by mouth three times daily at mealtime Ppjcmn-Zvitakka-Jgwisay (Creon) 24,000-76,000 -120,000 unit capsule,delayed release(DR/EC) Discontinued 1 NMA PO THREE TIMES A DAY July 26, 2023 4:00pm October 11, 2023 1:12pm administer with meals and/or snacks Start: 03-21-2023 End: 08-12-2024 take 1 capsule by mouth at mealtime eluijk-zsnnwbnt-ecradyq (CREON 24) 24,000-76,000 -120,000 unit delayed release capsule Take 1 capsule by mouth with meals. With snacks and meals 03/21/2023 08/12/2024 Discontinued (Discontinued by Patient) Start: 03-21-2023 take [id number] cap sules by mouth three times daily at mealtime Nmjbno-Nomdyvwi-Mfcmvnc (Creon) 24,000-76,000 -120,000 unit capsule,delayed release(DR/EC) Active 1 CAP PO THREE TIMES A DAY March 21, 2023 12:00am administer with meals and/or snacks Start: 01-04-2022 End: 02-16-2022 Xhxokq-Kuaqjfma-Uyzyeav (Cre on) 24,000-76,000 -120,000 unit capsule,delayed release(DR/EC) Discontinued 3 NMA PO THREE TIMES A DAY January 04, 2022 12:00am February 16, 2022 2:51pm Take three with meals and one with snacks. Comment on above: Take 1 capsule by mo ut with meals. With snacks and meals aspirin 81 mg delayed release oral tablet (20 sources) Platelet Aggregation Inhibitor, Nonsteroidal Anti-inflammatory Drug Start: 2 End: 3 take 1 tablet by mouth once daily Aspirin 81 mg tablet,delayed release (/EC) Discontinued 81 mg PO DAILY January 04, 2022 12:00am May 26, 2023 9:58pm Comment on above: Take 81 mg by mouth once daily. atenolol 50 mg oral tablet (20 sources) beta-Adrenergic Telma Start: 3 End: 3 atenolol (TENORMIN) 50 mg tablet Take 1/2 tablet now times one 1 tablet 0 07/18/2023 07/23/2023 Discontinued Start: 09-26-2015 End: 03-30-2024 take 1 tablet by mouth once daily Atenolol 50 mg tablet Discontinued 50 mg PO DAILY November 15, 2021 1:00am January 20, 2024 3:53pm Start: 06-13-2014 End: 08-01-2015 take 1 tablet by mouth once daily Atenolol 50 MG tablet Discontinued 50 mg PO DAILY June 13, 2014 12:00am August 01, 2015 10:10am Comment on above: Take 1 tablet by jagjit th once daily. Take 1/2 tablet now times one Take 1 tablet by jagjit th once daily. May also take 0.5-1 tablets once daily as needed (for blood pressure over 180/120). atropine sulfate 0.025 mg / diphenoxylate hydrochloride 2.5 mg oral tablet (20 sources) Anticholinergic, Cholinergic Muscarinic Antagonist, Antidiarrheal End: take 1 tablet by mouth every six hours as needed diphenoxylate-atropi ne (LOMOTIL) 2.5-0.025 mg per tablet Take 1 tablet by mouth four times daily as needed. 12/21/2022 Discontinued (Course of therapy completed) Comment on above: Take 1 tablet by jagjit th four times daily as needed. azithromycin 250 mg oral tablet (1 source) Macrolide Antimicrobial Start: End: take 2 tablets by mouth once daily, then take 1 tablet by mouth once daily azithromycin (ZITHROMAX) 250 mg tablet Take 2 tablets by mouth once daily for 1 day, THEN 1 tablet once daily for 4 days. 6 tablet 04/20/2024 04/25/2024 benzonatate 100 mg oral capsule (1 source) Non-narcotic Antitussive Start: End: take 2 capsules by mouth three times daily as needed benzonatate (TESSALON PERLE) 100 mg capsule Indications: Mild persistent asthma with acute exacerbation Take 2 capsules by mouth three times daily as needed. 42 capsule 12/25/2019 11/25/2020 Discontinued betamethasone 0.5 mg/ml / clotrimazole 10 mg/ml topical cream (2 sources) Azole Antifungal, Corticosteroid Start: End: clotrimazole-betamet hasone (LOTRISONE) cream Apply 1 application to affected area once daily. TO AFFECTED AREA. 45 g 2 05/13/2019 03/31/2021 Discontinued cefuroxime 500 mg oral tablet (3 sources) Cephalosporin Antibacterial Start: End: take 1 tablet by mouth twice daily Cefuroxime Axetil 500 mg tablet Discontinued 500 mg PO TWICE A DAY August 09, 2024 1:00am September 08, 2024 4:40pm cephalexin 500 mg oral capsule (3 sources) Cephalosporin Antibacterial Start: End: take 1 capsule by mouth twice daily cephALEXin (KEFLEX) 500 mg capsule Take 1 capsule by mouth twice daily for 7 days. 14 capsule 0 06/25/2022 06/27/2022 Discontinued Comment on above: Take 1 capsule by [facility] twice daily for 7 days. ciprofloxacin 500 mg oral tablet (10 sources) Quinolone Antimicrobial Start: End: take 1 tablet by mouth twice daily Ciprofloxacin Hcl 500 mg tablet Discontinued 500 mg PO TWICE A DAY May 09, 2024 12:00am August 02, 2024 7:26am Start: 03-30-2024 End: 04-06-2024 take 1 tablet by mouth twice daily ciprofloxacin HCl (CIPRO) 500 mg tablet Take 1 tablet by mouth two times a day for 7 days. 14 tablet 03/30/2024 04/06/2024 Start: 06-27-2022 End: 07-02-2022 take 1 tablet by mouth twice daily ciprofloxacin HCl (CIPRO) 500 mg tablet Take 1 tablet by mouth twice daily for 5 days. 10 tablet 0 06/27/2022 07/02/2022 Active Comment on above: Take 1 tablet by jagjit twice daily for 5 days. cyclobenzaprine hydrochloride 10 mg oral tablet (20 sources) Muscle Relaxant Start: 12-01-19 End: 01-05-20 take 1 tablet by mouth three times daily Cyclobenzaprine 10 mg tablet Discontinued 10 mg PO THREE TIMES A DAY November 30, 2021 12:00am January 04, 2022 4:07pm Start: 08-16-2020 End: 11-10-2021 take 1 tablet by mouth every eight hours as needed cyclobenzaprine (FLEXERIL) 10 mg tablet Take 1 tablet by mouth three times daily as needed for Muscle Spasm or Pain. 30 tablet 11/25/2020 11/10/2021 Discontinued diclofenac sodium 0.01 mg/mg topical gel (20 sources) Nonsteroidal Anti-inflammatory Drug Start: 12-04-2021 End: 12-21-2022 apply 2-4 g topically every six hours as needed diclofenac (VOLTAREN ARTHRITIS PAIN) 1 % topical gel Apply 2-4 g to affected area four times daily as needed (feet pain). 150 g 1 12/04/2021 12/21/2022 Discontinued (Course of therapy completed) Comment on above: Apply 2-4 g to affec alicia area four times daily as needed (feet pain). dicyclomine hydrochloride 10 mg oral capsule (9 sources) Anticholinergic Start: 06-25-2023 End: 07-25-2023 take 1 capsule by mouth three times daily Dicyclomine 10 mg capsule Discontinued 10 mg PO THREE TIMES A DAY June 25, 2023 12:00am July 24, 2023 1:00am July 25, 2023 1:05am doxycycline hyclate 100 mg oral capsule (16 sources) Tetracycline-class Drug Start: 08-09-2024 End: 09-08-2024 take 1 capsule by mouth twice daily Doxycycline Hyclate 100 mg capsule Discontinued 100 mg PO TWICE A DAY August 09, 2024 1:00am September 08, 2024 4:40pm Start: 03-04-2024 End: 03-11-2024 take 1 tablet by mouth twice daily doxycycline (VIBRA-TABS) 100 mg tablet Take 1 tablet by mouth two times a day for 7 days. 14 tablet 0 03/04/2024 03/11/2024 Active Start: 05-28-2023 End: 06-07-2023 take 1 tablet by mouth twice daily doxycycline (VIBRA-TABS) 100 mg tablet Take 1 tablet by mouth twice daily for 10 days. 20 tablet 0 05/28/2023 05/31/2023 Discontinued Start: 11-21-2022 End: 12-01-2022 take 1 tablet by mouth twice daily doxycycline (VIBRA-TABS) 100 mg tablet Take 1 tablet by mouth twice daily for 10 days. 20 tablet 0 11/21/2022 12/01/2022 Active Start: 08-14-2021 End: 08-21-2021 take 1 tablet by mouth twice daily doxycycline (VIBRA-TABS) 100 mg tablet Take 1 tablet by mouth twice daily for 7 days. 14 tablet 08/14/2021 08/21/2021 Comment on above: Take 1 tablet by jagjit twice daily for 10 days. famotidine 40 mg oral tablet (20 sources) Histamine-2 Receptor Antagonist Start: 3 End: 3 take 1 tablet by mouth twice daily famotidine (PEPCID) 40 mg tablet Indications: Hives Take 1 tablet by mouth twice daily. 28 tablet 05/31/2023 08/06/2023 Discontinued Start: 11-30-2021 End: 01-04-2022 take 1 tablet by mouth at bedtime Famotidine 20 mg tablet Discontinued 20 mg PO AT BEDTIME November 30, 2021 12:00am January 04, 2022 4:07pm Comment on above: Take 1 tablet by jagjit th twice daily. 30 actuat fluticasone furoate 0.2 mg/actuat / vilanterol 0.025 mg/actuat dry powder inhaler (20 sources) Corticosteroid, beta2-Adrenergic Agonist Start: 2 End: 5 take 1 dose by inhalation once daily fluticasone-vilanterol (BREO ELLIPTA) 200-25 mcg/dose inhaler Indications: Stage 2 moderate COPD by GOLD classification ([facility]) Inhale 1 Inhalation as instructed once daily. 1 Each 5 07/10/2024 11/25/2024 Discontinued (Changing Therapy/Dosage Form) Start: 09-29-2021 End: 01-18-2022 take 1 dose by inhalation once daily fluticasone-vilanterol (BREO ELLIPTA) 100-25 mcg/dose inhaler Inhale 1 Inhalation as instructed once daily. 1 Each 5 09/29/2021 01/18/2022 Discontinued (Course of therapy completed) Start: 07-29-2019 End: 09-08-2024 take 1 dose by inhalation once daily Fluticasone Furoate-Vilanterol 1 EACH blister with device Discontinued 1 NMA IH DAILY July 29, 2019 1:00am September 08, 2024 4:40pm Comment on above: Inhale 1 Inhalation as instructed once daily. glimepiride 4 mg oral tablet (17 sources) Sulfonylurea Start: 01-04-2023 End: 11-26-2023 Glimepiride 4 mg tablet Discontinued 4 mg PO DAILY as needed for glucose >200 January 04, 2023 12:00am November 26, 2023 12:39pm Start: 01-04-2023 End: 11-26-2023 take 4 mg by mouth once daily Glimepiride Discontinued 4 MG PO DAILY January 04, 2023 12:00am November 26, 2023 12:39pm 12 hr guaiFENesin 600 mg extended release oral tablet (3 sources) Start: 03-24-2024 End: 08-02-2024 take 1 tablet by mouth twice daily, then take 1 tablet by mouth every twelve hours Guaifenesin (Mucinex) 600 mg tablet extended release 12hr Discontinued 600 mg PO TWICE A DAY March 24, 2024 12:00am August 02, 2024 1:28pm hydroCHLOROthiazide 25 mg oral tablet (20 sources) Thiazide Diuretic Start: 04-15-2024 End: 08-12-2024 take 1 tablet by mouth once daily Hydrochlorothiazide 25 mg tablet Discontinued 25 mg PO DAILY April 15, 2024 8:45am August 05, 2024 11:38am Start: 02-10-2024 End: 07-29-2024 hydroCHLOROthiazide 50 mg ta blet Take 25 mg by mouth once daily. 02/10/2024 07/29/2024 Discontinued Start: 01-20-2024 End: 04-15-2024 take 1 tablet by mouth once daily Hydrochlorothiazide 50 mg tablet Discontinued 50 mg PO DAILY January 20, 2024 12:00am April 15, 2024 9:06am hydrOXYzine pamoate 25 mg oral capsule (10 sources) Antihistamine Start: 05-30-2023 End: 11-26-2023 take 1 capsule by mouth three times daily as needed Hydroxyzine Pamoate 25 mg capsule Discontinued 25 mg PO 3 TIMES DAILY NEEDED as needed for itching May 30, 2023 12:00am November 26, 2023 12:41pm ketoconazole 20 mg/ml topical cream (20 sources) Azole Antifungal Start: 11-15-2021 End: 03-21-2024 Ketoconazole 2 % cream Discontinued 1 NMA TOPICAL DAILY November 15, 2021 1:00am March 21, 2024 3:37pm Start: 06-26-2021 End: 05-06-2024 ketoconazole (NIZORAL) 2 % c ream Apply 1 application to affected area once daily. 30 g 06/26/2021 04/06/2024 Discontinued Comment on above: Apply 1 application to affected area once daily. levoFLOXacin 750 mg oral tablet (20 sources) Quinolone Antimicrobial Start: 08-06-20 End: 09-08-20 take 1 tablet by mouth once daily Levofloxacin 750 mg tablet Discontinued 750 mg PO DAILY August 06, 2024 1:00am September 08, 2024 4:41pm Start: 03-24-2024 End: 08-02-2024 take 1 tablet by mouth once daily Levofloxacin 750 mg Tablet Discontinued 750 mg PO DAILY March 24, 2024 12:00am August 02, 2024 7:28am Start: 03-21-2023 End: 05-26-2023 take 1 tablet by mouth every twelve hours Levofloxacin 250 mg tablet Discontinued 250 mg PO Q12H March 21, 2023 12:00am May 26, 2023 10:03pm linaclotide 0.29 mg oral capsule (3 sources) Guanylate Cyclase-C Agonist Start: 09-08-2024 End: 10-16-2024 take 1 capsule by mouth once daily Linaclotide (Linzess) 290 mcg capsule Discontinued 290 ug PO daily September 08, 2024 1:00am October 16, 2024 3:14pm lipase/protease/sadie lase (CREON ORAL) (20 sources) End: 08-06-2023 lipase/protease/sadie lase (CREON ORAL) Take by mouth. Dr. Caceres, unsure of dose 08/06/2023 Discontinued End: 08-06-2023 lipase/protease/amylase (CRE ON ORAL) Take by mouth. Dr. Caceres, unsure of dose 0 08/06/2023 Discontinued lipase/protease/ amylase (CREON ORAL) Take by mouth. Dr. Caceres, unsure of dose 0 Active Comment on above: Take by mouth. Dr. Diana negrete, unsure of dose loperamide hydrochloride 2 mg oral tablet (9 sources) Opioid Agonist Start: 2022 End: 2022 take 1 tablet by mouth every six hours as needed Loperamide (Anti-Diarrheal (Loperamide)) 2 mg tablet Discontinued 2 mg PO EVERY 6 HOURS as needed for loose stool 120 June 25, 2023 12:00am July 24, 2023 1:00am July 25, 2023 1:05am meloxicam 15 mg oral tablet (1 source) Nonsteroidal Anti-inflammatory Drug Start: 2019 End: 2020 take 1 tablet by mouth once daily meloxicam (MOBIC) 15 mg tablet Take 1 tablet by mouth once daily. 30 tablet 1 05/06/2020 11/25/2020 Discontinued methylPREDNISolone (2 sources) Corticosteroid Start: 2023 End: 2023 methylPREDNISolone (MEDROL, ARNULFO,) 4 mg Dose-Pack Follow dosing instructions, take with food. 21 tablet 04/20/2024 04/26/2024 Start: 06-03-2023 End: 06-09-2023 methylPREDNISolone (MEDROL, ARNULFO,) 4 mg Dose-Pack Indications: Hives , Dermatitis Follow dosing instructions, take with food. 21 tablet 0 06/03/2023 06/09/2023 Active Comment on above: Follow dosing instru ctions, take with food. montelukast 10 mg oral tablet (2 sources) Leukotriene Receptor Antagonist Start: End: take 1 tablet by mouth once daily at bedtime montelukast (SINGULAIR) 10 mg tablet Take 1 tablet by mouth daily at bedtime. 30 tablet 3 06/27/2022 07/02/2022 Discontinued (Discontinued by Patient) Comment on above: Take 1 tablet by jagjit th daily at bedtime. 24 hr nicotine 0.583 mg/hr transdermal system (20 sources) Cholinergic Nicotinic Agonist Start: End: apply 1 dose transdermal route every twenty-four hours nicotine (NICODERM) 14 mg/24 hr Apply 1 Patch as directed every 24 hours. No smoking with patch. 30 Patch 1 03/30/2024 08/12/2024 Discontinued (Course of therapy completed) nitrofurantoin, macrocrystals 25 mg / nitrofurantoin, monohydrate 75 mg oral capsule (12 sources) Nitrofuran Antibacterial Start: End: take 1 capsule by mouth twice daily at mealtime Nitrofurantoin Monohyd/M-Cryst (Macrobid) 100 mg capsule Discontinued 100 mg PO TWICE A DAY August 02, 2024 1:00am August 06, 2024 1:12am must administer with a meal/food Start: 03-20-2024 End: 03-25-2024 take 1 capsule by mouth twice daily nitrofurantoin monohydrate and macrocrystal (MACROBID) 100 mg capsule Take 1 capsule by mouth two times a day for 5 days. 10 capsule 0 03/20/2024 03/25/2024 Active Start: 05-20-2023 End: 05-25-2023 take 1 capsule by mouth twice daily nitrofurantoin monohydrate and macrocrystal (MACROBID) 100 mg capsule Indications: Urinary frequency Take 1 capsule by mouth twice daily for 5 days. 10 capsule 0 05/20/2023 05/25/2023 Active Start: 06-22-2022 End: 06-27-2022 take 1 capsule by mouth twice daily nitrofurantoin monohydrate and macrocrystal (MACROBID) 100 mg capsule Take 1 capsule by mouth twice daily for 5 days. 10 capsule 0 06/22/2022 06/27/2022 Active Start: 01-09-2022 End: 01-16-2022 take 1 capsule by mouth twice daily at mealtime nitrofurantoin monohydrate and macrocrystal (MACROBID) 100 mg capsule Take 1 capsule by mouth twice daily with meals for 7 days. 14 capsule 0 01/09/2022 01/16/2022 Comment on above: Take 1 capsule by mo ut twice daily with meals for 7 days. Take 1 capsule by mo uth twice daily for 5 days. nystatin 055647 unt/ml oral suspension (20 sources) Polyene Antifungal Start: 07-05-2022 End: 10-08-2022 nystatin (MYCOSTATIN) 100,000 unit/mL suspension Indications: Oral thrush Take 5 mL by mouth four times daily. 1tsp swish in mouth for several minutes, then swallow (or expectorate) 4 times daily until gone. 200 mL 0 09/04/2022 10/08/2022 Discontinued (Course of therapy completed) Start: 11-05-2017 End: 03-31-2021 nystatin (MYCOSTATIN) cream Apply 1 application to affected area twice daily. Apply for another week after rash resolves. Treat again as needed as directed 30 g 1 11/05/2017 03/31/2021 Discontinued Comment on above: Take 5 mL by mouth f our times daily. 1tsp swish in mouth for several minutes, then swallow (or expectorate) 4 times daily until gone. omeprazole 20 mg delayed release oral capsule (20 sources) Proton Pump Inhibitor Start: 07-02-20 End: 12-22-19 take 1 capsule by mouth once daily before breakfast omeprazole (PRILOSEC) 20 mg capsule Take 1 capsule by mouth daily before breakfast. 1/2 hr before meal. 30 capsule 0 07/02/2022 12/21/2022 Discontinued (Discontinued by Patient) Start: 02-04-2020 End: 11-25-2020 take 1 capsule by mouth twice daily omeprazole (PRILOSEC) 20 mg capsule Take 1 capsule by mouth twice daily. 180 capsule 2 02/04/2020 11/25/2020 Discontinued Comment on above: Take 1 capsule by mo ut daily before breakfast. 1/2 hr before meal. phenazopyridine hydrochloride 200 mg oral tablet (20 sources) Start: 08-06-20 End: 09-08-20 take 1 tablet by mouth three times daily as needed for pain Phenazopyridine (Pyridium) 200 mg tablet Discontinued 200 mg PO THREE TIMES A DAY as needed for bladder pain August 06, 2024 1:11am September 08, 2024 4:41pm Start: 03-20-2024 End: 07-29-2024 take 1 tablet by mouth three times daily as needed for pain Phenazopyridine (Pyridium) 200 mg tablet Discontinued 200 mg PO THREE TIMES A DAY as needed for pain May 09, 2024 12:50am July 10, 2024 2:00pm polyethylene glycol 3350 62591 mg powder for oral solution (3 sources) Osmotic Laxative Start: 03-24-2024 End: 09-08-2024 Polyethylene Glycol 3350 (Miralax) 17 gram/dose powder Discontinued 17 g PO DAILY March 24, 2024 12:00am September 08, 2024 4:41pm polyethylene glycol 3350 976655 mg / potassium chloride 2970 mg / sodium bicarbonate 6740 mg / sodium chloride 5860 mg / sodium sulfate 67113 mg powder for oral solution (20 sources) Osmotic Laxative Start: 02-09-2022 End: 10-08-2022 peg 3350-Electrolytes (GOLYTELY) 236-22.74-6.74 -5.86 gram suspension Refer to printed prep instructions from your provider. 4000 mL 02/09/2022 10/08/2022 Discontinued Comment on above: Refer to printed pre p instructions from your provider. predniSONE 10 mg oral tablet (20 sources) Start: 08-11-2024 End: 08-12-2024 predniSONE (DELTASONE) 10 mg tablet Take two a day for one week then one a day for one week then stop 21 tablet 08/11/2024 08/12/2024 Discontinued (Discontinued by Patient) Start: 05-30-2023 take 40 mg by mouth once daily Prednisone Active 40 MG PO DAILY 06 13May 30, 2023 12:00am Start: 12-05-2022 End: 12-17-2022 predniSONE (DELTASONE) 10 mg tablet Take 4 tabs daily x 3 days, then 3 tabs x 3 days, 2 tabs x 3 days, then 1 tab x3 days with food. 30 tablet 0 12/05/2022 12/17/2022 Start: 06-27-2022 End: 07-09-2022 predniSONE (DELTASONE) 10 mg tablet Take 4 tabs daily x 3 days, then 3 tabs x 3 days, 2 tabs x 3 days, then 1 tab x3 days with food. 30 tablet 0 06/27/2022 07/02/2022 Discontinued (Discontinued by Patient) Start: 06-22-2022 End: 06-27-2022 predniSONE (DELTASONE) 20 mg tablet 2 pills daily x 3 days, then 1 pill daily x 3 days, then 1/2 pill daily x 4 days. 11 tablet 0 06/22/2022 06/27/2022 Discontinued Start: 08-21-2021 End: 11-15-2021 take 3 tablets by mouth once daily Prednisone 20 mg tablet Discontinued 60 mg PO DAILY August 21, 2021 1:00am November 15, 2021 4:05pm Start: 08-21-2021 End: 11-15-2021 take 60 mg by mouth once daily Prednisone Discontinued 60 MG PO DAILY August 21, 2021 1:00am November 15, 2021 4:05pm Start: 08-14-2021 End: 08-19-2021 take 2 tablets by mouth once daily predniSONE (DELTASONE) 20 mg tablet Take 2 tablets by mouth once daily for 5 days. 10 tablet 08/14/2021 08/19/2021 Comment on above: 2 pills daily x 3 da ys, then 1 pill daily x 3 days, then 1/2 pill daily x 4 days. Take 4 tabs daily x 3 days, then 3 tabs x 3 days, 2 tabs x 3 days, then 1 tab x3 days with food. simethicone 80 mg chewable tablet (3 sources) Start: 4 End: 4 take 1 tablet by mouth at bedtime as needed Simethicone 80 mg Tablet,Chewable Discontinued 80 mg PO BEFORE MEALS AND AT BEDTIME as needed for Gas 0 March 24, 2024 12:00am September 08, 2024 4:41pm sucralfate 1000 mg oral tablet (20 sources) Aluminum Complex Start: 3 End: 4 take 1 tablet by mouth twice daily Sucralfate 1 gram tablet Discontinued 1 g PO TWICE A DAY August 26, 2023 1:00am October 11, 2023 1:13pm Start: 04-11-2023 End: 07-23-2023 take 1 tablet by mouth three times daily before mealtime sucralfate (CARAFATE) 1 gram tablet Take 1 tablet by mouth three times daily before meals. 04/11/2023 07/23/2023 Discontinued Start: 04-09-2023 End: 04-09-2023 take 1 tablet by mouth before mealtime Sucralfate 1 gram tablet Discontinued 1 g PO before meals April 09, 2023 12:00am April 09, 2023 3:30pm Start: 04-09-2023 End: 04-09-2023 take 1 g by mouth before mealtime Sucralfate Discontinued 1 GM PO before meals April 09, 2023 12:00am April 09, 2023 3:30pm Comment on above: Take 1 tablet by jagjit th three times daily before meals. thioctic acid 600 mg oral tablet (20 sources) Start: 09-08-2024 End: 10-16-2024 take 1 tablet by mouth every twenty-four hours Alpha Lipoic Acid 600 mg tablet Discontinued 600 mg PO Q24H September 08, 2024 1:00am October 16, 2024 3:12pm take 1 capsule by mouth once yvonne ly Alpha Lipoic Acid 600 mg cap Take 600 mg by mouth once daily. Active traMADol hydrochloride 50 mg oral tablet (20 sources) Opioid Agonist Start: 08-07-2022 End: 08-14-2022 take 1 tablet by mouth four times daily as needed for pain traMADol (ULTRAM) 50 mg tablet Indications: Acute bilateral low back pain with bilateral sciatica Take 1 tablet by mouth four times daily as needed for pain for up to 7 days. 28 tablet 0 08/07/2022 08/14/2022 Start: 11-30-2021 End: 01-04-2022 take 1 tablet by mouth every eight hours as needed Tramadol 50 mg tablet Discontinued 50 mg PO Q8H as needed November 30, 2021 12:00am January 04, 2022 4:06pm Start: 08-10-2021 End: 11-10-2021 take 1 tablet by mouth every eight hours as needed for pain traMADol (ULTRAM) 50 mg tablet Indications: Trigger ring finger of right hand Take 1 tablet by mouth every 8 hours as needed for pain. 9 tablet 08/10/2021 11/10/2021 Discontinued Comment on above: Take 1 tablet by jagjit four times daily as needed for pain for up to 7 days. triamcinolone acetonide 1 mg/ml topical cream (1 source) Corticosteroid Start: 018 End: triamcinolone acetonide (KENALOG) 0.1 % cream Indications: Pruritic dermatitis Apply 1 application to affected area three times daily as needed. Apply sparingly to area for rash/itching. 30 g 01/22/2018 11/25/2020 Discontinued 30 actuat umeclidinium 0.0625 mg/actuat / vilanterol 0.025 mg/actuat dry powder inhaler (2 sources) Anticholinergic, beta2-Adrenergic Agonist Start: End: take 1 puff(s) by inhalation once daily umeclidinium-vilante rol (ANORO ELLIPTA) 62.5-25 mcg/actuation inhaler Inhale 1 Inhalation as instructed once daily. Inhale one puff once daily. DO NOT CLICK OPEN UNTIL READY FOR DOSE 1 Each 1 12/18/2022 12/21/2022 Discontinued (Course of therapy completed) Comment on above: Inhale 1 Inhalation as instructed once daily. Inhale one puff once daily. DO NOT CLICK OPEN UNTIL READY FOR DOSE urea 400 mg/ml topical cream (2 sources) Start: End: urea (CARMOL) 40 % Apply to affected area as needed. 189.6 g 11 04/06/2020 11/25/2020 Discontinued Start: 02-12-2017 End: 11-25-2020 urea (CARMOL) 40 % lotn Appl y 1 application to affected area twice daily. 1 Bottle 5 02/12/2017 11/25/2020 Discontinued ursodiol 300 mg oral capsule (20 sources) Bile Acid Start: 01-10-2022 End: 08-12-2024 take 1 capsule by mouth twice daily Ursodiol 300 mg capsule Discontinued 300 mg PO TWICE A DAY 60 March 26, 2023 3:25pm July 10, 2024 2:00pm Comment on above: Take 1 capsule by mo uth twice daily. Take 300 mg by mouth twice daily. vitamin e 180 mg oral capsule (20 sources) Start: 03-26-2023 End: 07-10-2024 Vitamin E Mixed 400 unit capsule Discontinued 800 U PO DAILY 60 March 26, 2023 3:26pm July 10, 2024 2:00pm Start: 03-26-2023 take 800 [IU] by jagjit once daily Vitamin E Mixed Active 800 UNIT PO DAILY 60 March 26, 2023 3:26pm Start: 02-16-2022 End: 01-04-2023 Vitamin E Mixed 400 unit cap radha Discontinued 800 U PO DAILY February 16, 2022 12:00am January 04, 2023 4:21pm Start: 02-16-2022 End: 01-04-2023 take 800 [IU] by mouth once daily Vitamin E Mixed Discontinued 800 UNIT PO DAILY February 16, 2022 12:00am January 04, 2023 4:21pm End: 08-12-2024 Vitamin E, dl, acetate, (VIT JI E) 400 unit capsule Take 800 Units by mouth once daily. 08/12/2024 Discontinued (Discontinued by Patient) take 1 capsule by mo ut once daily Vitamin E, dl, acetate, (VITAMIN E) 400 unit capsule Take 400 Units by mouth once daily. 0 Active take 1 capsule by mo ut once daily Vitamin E, dl, acetate, (VITAMIN E) 400 unit capsule Take 400 Units by mouth once daily. 0 Active Comment on above: Take 400 Units by mo uth once daily. Take 800 Units by mo uth once daily. Problems Active Problems Problem Classification Problem Date Documented Da te Episodic/Chronic Abdominal hernia (1 source) Hiatal hernia; Translations: [Diaphragmatic hernia without obstruction or gangrene] Episodic Allergic reactions (20 sources) Allergic reaction; Translations: [Allergy, unspecified, initial encounter] 05-27-2023 Episodic Anxiety disorders (20 sources) Anxiety; Translations: [Anxiety disorder, unspecified] Onset: 08-07-2019 Chronic Aortic; peripheral; and visceral artery aneurysms (3 sources) Distention of artery; Translations: [Other specified disorders of arteries and arterioles] 11-25-2024 Chronic Asthma (20 sources) Asthma; Translations: [Unspecified asthma, uncomplicated] Onset: 7 08-23-2015 Chronic Chronic obstructive pulmonary disease and bronchiectasis (20 sources) Acute exacerbation of chronic obstructive airways disease; Translations: [Chronic obstructive pulmonary disease with (acute) exacerbation] Onset: 4 Chronic Deficiency and other anemia (20 sources) Anemia; Translations: [Anemia, unspecified] 11-15-2021 Episodic Diabetes mellitus with complications (20 sources) Type 2 diabetes mellitus; Translations: [Type 2 diabetes mellitus with diabetic neuropathy, unspecified] Onset: 7 Resolved: 0 05-18-2020 Chronic Diabetes mellitus without complication (3 sources) Type 2 diabetes mellitus without complications; Translations: [Diabetes mellitus without mention of complication, type II or unspecified type, not stated as uncontrolled] Onset: 4 Chronic Disorders of lipid metabolism (20 sources) Pure hyperglyceridemia; Translations: [Pure hyperglyceridemia] Onset: 6 Resolved: 4 06-14-2010 Chronic E Codes: Adverse effects of medical drugs (20 sources) Corticosteroids adverse reaction; Translations: [Adverse effect of glucocorticoids and synthetic analogues, initial encounter] 07-10-2022 Episodic Esophageal disorders (1 source) Gastroesophageal reflux disease; Translations: [Gastro-esophageal reflux disease without esophagitis] Chronic Essential hypertension (20 sources) Essential hypertension; Translations: [Essential (primary) hypertension] Onset: 6 04-30-2020 Chronic Fluid and electrolyte disorders (20 sources) Hypokalemia; Translations: [Hypokalemia] 12-29-2022 Episodic Genitourinary symptoms and ill-defined conditions (1 source) Nocturnal enuresis; Translations: [Nocturnal enuresis] Chronic Genitourinary symptoms and ill-defined conditions (20 sources) Rojas hematuria; Translations: [Gross hematuria] Onset: 4 Episodic Immunizations and screening for infectious disease (1 source) Suspected disease caused by 2019-nCoV; Translations: [Suspected COVID-19 virus infection] 03-04-2024 Episodic Malaise and fatigue (2 sources) Fatigue; Translations: [Chronic fatigue, unspecified] Onset: 4 07-29-2024 Chronic Mood disorders (20 sources) Depressive disorder; Translations: [Depression] 09-30-2017 Chronic Mood disorders (1 source) Mood disorders; Translations: [Anxiety and depression] Onset: 5 Mycoses (2 sources) Candidiasis of mouth; Translations: [Candidal stomatitis] Episodic Nonmalignant breast conditions (1 source) Breast finding ; Translations: [Dense breast tissue] 10-07-2024 Episodic Nonspecific chest pain (20 sources) Chest pain; Translations: [Chest pain, unspecified] Episodic Occlusion or stenosis of precerebral arteries (1 source) Occlusion and stenosis of left carotid artery; Translations: [Occlusion and stenosis of left carotid artery] Onset: 4 Chronic Osteoarthritis (20 sources) Osteoarthritis; Translations: [Unspecified osteoarthritis, unspecified site] Onset: 4 11-15-2021 Chronic Other acquired deformities (3 sources) Lumbar spondylolisthesis; Translations: [Spondylolisthesis, lumbar region] 07-10-2024 Episodic Other acquired deformities (3 sources) Degenerative spondylolisthesis; Translations: [Spondylolisthesis, site unspecified] 11-16-2024 Episodic Other aftercare (9 sources) Patient encounter status; Translations: [Other alf (current) drug therapy] Episodic Other aftercare (1 source) Long-term current use of drug therapy; Translations: [Other intermediate designer (current) drug therapy] 04-20-2024 Episodic Other and unspecified benign neoplasm (1 source) Tubular adenoma ; Translations: [Benign neoplasm, unspecified site] Episodic Other circulatory disease (1 source) Other specified disorders of arteries and arterioles; Translations: [Ectasia of artery] Onset: 5 Chronic Other circulatory disease (1 source) Abnormal peripheral pulse; Translations: [Other specified symptoms and signs involving the circulatory and respiratory systems] Episodic Other circulatory disease (3 sources) Low blood pressure; Translations: [Hypotension, unspecified] 08-02-2024 Episodic Other connective tissue disease (20 sources) History of total knee arthroplasty; Translations: [Presence of unspecified artificial knee joint] 11-15-2021 Chronic Other connective tissue disease (1 source) Diastasis recti; Translations: [Separation of muscle (nontraumatic), other site] Episodic Other connective tissue disease (2 sources) Pain in bilateral legs; Translations: [Pain in right leg] Episodic Other connective tissue disease (1 source) Pain in both feet; Translations: [Pain in right foot] Episodic Other connective tissue disease (1 source) Muscle pain; Translations: [Myalgia, unspecified site] 12-12-2023 Episodic Other connective tissue disease (3 sources) Pain of toe of right foot; Translations: [Pain in right toe(s)] 03-02-2025 Episodic Other connective tissue disease (1 source) Pain in right toe(s); Translations: [Toe pain, right] Onset: Episodic Other disorders of stomach and duodenum (6 sources) Gastroparesis syndrome; Translations: [Gastroparesis] 08-26-2023 Episodic Other disorders of stomach and duodenum (3 sources) Gastroparesis; Translations: [Gastroparesis] 08-26-2023 Episodic Other gastrointestinal disorders (20 sources) Diarrhea, unspecified; Translations: [Diarrhea] Episodic Other gastrointestinal disorders (19 sources) Abdominal bloating; Translations: [Abdominal distension (gaseous)] Episodic Other gastrointestinal disorders (1 source) Abdominal mass; Translations: [Intra-abdominal and pelvic swelling, mass and lump, unspecified site] Episodic Other gastrointestinal disorders (1 source) Abdominal distension, gaseous; Translations: [Abdominal distension (gaseous)] Episodic Other gastrointestinal disorders (17 sources) Heartburn; Translations: [Heartburn] 01-04-2023 Episodic Other gastrointestinal disorders (17 sources) Abdominal distension (gaseous); Translations: [Flatulence, eructation, and gas pain] 01-04-2023 Episodic Other gastrointestinal disorders (17 sources) Heartburn; Translations: [Heartburn] 01-04-2023 Episodic Other gastrointestinal disorders (14 sources) Constipation; Translations: [Constipation, unspecified] 03-21-2023 Episodic Other gastrointestinal disorders (1 source) Disorder of gastrointestinal tract; Translations: [Other specified diseases of the digestive system] 05-12-2024 Episodic Other infections; including parasitic (1 source) History of sepsis; Translations: [Personal history of other infectious and parasitic diseases] 03-30-2024 Episodic Other inflammatory condition of skin (1 source) Itching ; Translations: [Pruritus, unspecified] Episodic Other injuries and conditions due to external causes (2 sources) Injury of toe of left foot; Translations: [Unspecified injury of left foot, initial encounter] 02-18-2024 Episodic Other liver diseases (20 sources) Steatosis of liver; Translations: [Fatty (change of) liver, not elsewhere classified] 12-27-2021 Chronic Other liver diseases (11 sources) Fatty (change of) liver, not elsewhere classified; Translations: [Other chronic nonalcoholic liver disease] Chronic Other liver diseases (2 sources) Abnormal levels of other serum enzymes; Translations: [Other nonspecific abnormal serum enzyme levels] Episodic Other liver diseases (15 sources) High lipase level in serum; Translations: [Abnormal levels of other serum enzymes] 01-28-2023 Episodic Other lower respiratory disease (20 sources) Dyspnea; Translations: [Shortness of breath] 01-04-2022 Episodic Comment on above: The patient complain s of dyspnea on occasion shortness of breath at rest. She does have pulmonary insufficiency and continues to smoke. She also has significant risk factors for coronary artery disease being diabetic hypertensive smoker and a family history of coronary disease. Other lower respiratory disease (6 sources) Cough; Translations: [Acute cough] Episodic Other lower respiratory disease (3 sources) Multiple nodules of lung; Translations: [Other nonspecific abnormal finding of lung field] 05-07-2024 Episodic Other lower respiratory disease (2 sources) Cough; Translations: [Acute cough] 11-21-2022 Episodic Other lower respiratory disease (3 sources) Hypoxia; Translations: [Hypoxemia] 03-28-2024 Episodic Other nervous system disorders (12 sources) Neuropathy; Translations: [Polyneuropathy, unspecified] Chronic Other nervous system disorders (1 source) Carpal tunnel syndrome of right wrist; Translations: [Carpal tunnel syndrome, right upper limb] 11-24-2024 Chronic Other nervous system disorders (6 sources) Cervical myelopathy; Translations: [Disease of spinal cord, unspecified] 09-08-2024 Chronic Other nervous system disorders (2 sources) Polyneuropathy, unspecified; Translations: [Polyneuropathy, unspecified] Onset: 5 Chronic Other nervous system disorders (1 source) Disease of spinal cord, unspecified; Translations: [Disease of spinal cord, unspecified] Onset: 5 Chronic Other nervous system disorders (1 source) Carpal tunnel syndrome, right upper limb; Translations: [Carpal tunnel syndrome of right wrist] Onset: 5 Chronic Other nervous system disorders (2 sources) Other chronic pain; Translations: [Other chronic back pain] Onset: 2 Chronic Other nervous system disorders (1 source) Impairment of balance; Translations: [Other abnormalities of gait and mobility] 07-29-2024 Episodic Other non-traumatic joint disorders (2 sources) Pain in right shoulder; Translations: [Pain in joint, shoulder region] 07-23-2023 Episodic Other non-traumatic joint disorders (2 sources) Swelling of upper limb; Translations: [Effusion, right elbow] 03-04-2024 Episodic Other non-traumatic joint disorders (3 sources) Acute ankle pain; Translations: [Pain in right ankle and joints of right foot] 03-02-2025 Episodic Other non-traumatic joint disorders (1 source) Pain in right ankle and joints of right foot; Translations: [Acute right ankle pain] Onset: 5 Episodic Other nutritional; endocrine; and metabolic disorders (20 sources) Obese class I; Translations: [Obesity, unspecified] 04-30-2020 Chronic Other nutritional; endocrine; and metabolic disorders (20 sources) Morbid obesity; Translations: [Morbid (severe) obesity due to excess calories] 04-25-2020 Chronic Other nutritional; endocrine; and metabolic disorders (2 sources) Obesity; Translations: [Other obesity due to excess calories] Chronic Other nutritional; endocrine; and metabolic disorders (3 sources) Obesity caused by energy imbalance; Translations: [Other obesity due to excess calories] 12-12-2023 Chronic Other nutritional; endocrine; and metabolic disorders (2 sources) Obese class II; Translations: [Obesity, unspecified] 05-07-2024 Chronic Other nutritional; endocrine; and metabolic disorders (1 source) Other obesity due to excess calories; Translations: [Class 1 obesity due to excess calories with body mass index (BMI) of 30.0 to 30.9 in adult, unspecified whether serious comorbidity present] Onset: 4 Chronic Other nutritional; endocrine; and metabolic disorders (1 source) Body mass index (BMI) 30.0-30.9, adult; Translations: [Class 1 obesity due to excess calories with body mass index (BMI) of 30.0 to 30.9 in adult, unspecified whether serious comorbidity present] Onset: 4 Chronic Other upper respiratory disease (20 sources) Rhinitis; Translations: [Chronic rhinitis] Onset: 4 10-30-2013 Chronic Other upper respiratory disease (2 sources) Seasonal allergy; Translations: [Other seasonal allergic rhinitis] Chronic Other upper respiratory disease (1 source) Allergic rhinitis; Translations: [Allergic rhinitis, unspecified] Chronic Other upper respiratory infections (4 sources) Chronic sinusitis; Translations: [Chronic sinusitis, unspecified] Onset: 4 Chronic Pancreatic disorders (not diabetes) (15 sources) Exocrine pancreatic insufficiency; Translations: [Exocrine pancreatic insufficiency] 01-28-2023 Episodic Pulmonary heart disease (3 sources) Pulmonary embolism; Translations: [Other pulmonary embolism without acute cor pulmonale] 03-28-2024 Episodic Residual codes; unclassified (20 sources) Obstructive sleep apnea syndrome; Translations: [Obstructive sleep apnea (adult) (pediatric)] 08-07-2019 Chronic Comment on above: The patient reports she recently obtained a new mask which is easier to utilize. Residual codes; unclassified (20 sources) Tobacco user; Translations: [Tobacco use] 07-22-2015 Episodic Residual codes; unclassified (1 source) Insomnia; Translations: [Insomnia, unspecified] Episodic Residual codes; unclassified (2 sources) Postmenopausal state; Translations: [Asymptomatic menopausal state] Episodic Residual codes; unclassified (6 sources) Needs assistance with community resources; Translations: [Other specified health status] 07-22-2024 Episodic Residual codes; unclassified (3 sources) Family history of aneurysm of abdominal aorta; Translations: [Family history of ischemic heart disease and other diseases of the circulatory system] 11-25-2024 Episodic Residual codes; unclassified (1 source) Bilateral lower limb edema; Translations: [Localized edema] 11-18-2024 Episodic Residual codes; unclassified (3 sources) Family history of aneurysm of artery; Translations: [Family history of ischemic heart disease and other diseases of the circulatory system] 03-28-2024 Episodic Residual codes; unclassified (2 sources) Family history of ischemic heart disease and other diseases of the circulatory system; Translations: [Family history of ischemic heart disease and other diseases of the circulatory system] Onset: Episodic Spondylosis; intervertebral disc disorders; other back problems (7 sources) Degeneration of lumbar intervertebral disc; Translations: [Degeneration of intervertebral disc of lumbar region] 11-16-2024 Chronic Substance-related disorders (20 sources) Nicotine dependence; Translations: [Nicotine dependence, unspecified, uncomplicated] Onset: 0 04-30-2020 Chronic Unclassified (12 sources) Cancer antigen 19-9 above reference range; Translations: [Cancer antigen 19-9 above reference range] 02-20-2023 Unclassified (20 sources) High Risk Chronic Disease Home Monitoring Problem Onset: 3 01-23-2023 Unclassified (2 sources) M54.12 - Radiculopathy, cervical region Unclassified (1 source) appointment is with Leilani Ramirez N.P. Unclassified (1 source) Patient encounter status 01-24-2025 Unclassified (2 sources) Spinal stenosis of lumbar region with neurogenic claudication; Translations: [M48.062 - Spinal stenosis, lumbar region with neurogenic claudication] Unclassified (1 source) Other intervertebral disc degeneration, lumbar region with discogenic back pain and lower extremity pain; Translations: [Other intervertebral disc degeneration, lumbar region with discogenic back pain and lower extremity pain] Onset: 5 Unclassified (2 sources) Low back pain, unspecified; Translations: [Low back pain, unspecified] Onset: 4 Unclassified (1 source) Acidosis, unspecified; Translations: [Acidosis, unspecified] Onset: 4 Unclassified (1 source) Multiple subsegmental pulmonary emboli without acute cor pulmonale; Translations: [Multiple subsegmental pulmonary emboli without acute cor pulmonale] Onset: 4 Unclassified (1 source) Dense breast tissue; Translations: [Dense breast tissue] Onset: 5 Unclassified (1 source) Class 1 obesity due to excess calories with body mass index (BMI) of 30.0 to 30.9 in adult, unspecified whether serious comorbidity present; Translations: [Class 1 obesity due to excess calories with body mass index (BMI) of 30.0 to 30.9 in adult, unspecified whether serious comorbidity present] Onset: 4 Past or Other Problems Problem Classification Problem Date Documented Da te Episodic/Chronic Abdominal pain (20 sources) Abdominal pain; Translations: [Unspecified abdominal pain] Onset: 6 Resolved: 1 Episodic Acute and unspecified renal failure (6 sources) Acute renal failure syndrome; Translations: [Acute kidney failure, unspecified] Onset: 4 08-12-2024 Episodic Acute bronchitis (1 source) Acute bronchitis, unspecified; Translations: [Acute bronchitis with chronic obstructive pulmonary disease (COPD) (HCC) ([facility])] Onset: 4 Episodic Biliary tract disease (20 sources) Calculus of gallbladder with cholecystitis; Translations: [Calculus of gallbladder with chronic cholecystitis without obstruction] Onset: 7 Resolved: 4 12-15-2013 Episodic Chronic obstructive pulmonary disease and bronchiectasis (20 sources) Bronchitis; Translations: [Bronchitis, not specified as acute or chronic] Onset: 4 08-20-2015 Episodic Diabetes mellitus without complication (20 sources) Acute hyperglycemia; Translations: [Hyperglycemia, unspecified] Onset: 6 Resolved: 7 07-10-2022 Episodic Gastrointestinal hemorrhage (20 sources) Rectal hemorrhage; Translations: [Hemorrhage of anus and rectum] Onset: 2 Resolved: 4 Episodic Headache; including migraine (20 sources) Throbbing headache; Translations: [Throbbing headache] Onset: 1 Resolved: 1 08-18-2023 Episodic Hemorrhoids (20 sources) Hemorrhoids; Translations: [Unspecified hemorrhoids] Onset: 2 Resolved: 1 Episodic Comment on above: Patient is 63-year-o ld female with chronic issues related to hemorrhoid activity. She just recently completed colonoscopy 3 months ago with hemorrhoid banding. She confirms that this was at least partially effective in improving her bleeding rates with bowel movements. Today I have stressed the need to implement regular conservative measures as well as minimize her toilet time to decrease her risk for propagating this issue. Conservative measures included beginning fiber supplementation twice daily (with water), twice daily sitz bath's, and her choice of another [id number] agent to see what implementation of these measures may do for her symptoms. I stressed to her that I would strongly recommend this course over proceeding straightaway with excisional hemorrhoidectomy especially in light of her issues already with stool leakage and pelvic floor dysfunction. Mrs. Anyi expressed understanding willingness to proceed as recommended. Malaise and fatigue (3 sources) Fatigue; Translations: [Other fatigue] Onset: 4 05-31-2023 Episodic Other aftercare (1 source) Other alf (current) drug therapy; Translations: [Encounter for long-term current use of medication] Onset: 4 Episodic Other connective tissue disease (1 source) Pain in right leg; Translations: [Pain in right leg] Onset: 4 Episodic Other connective tissue disease (1 source) Pain in right lower leg; Translations: [Pain in right lower leg] Onset: 4 Episodic Other gastrointestinal disorders (20 sources) Diarrhea; Translations: [Diarrhea, unspecified] Onset: 2 Resolved: 5 12-14-2021 Episodic Other gastrointestinal disorders (1 source) Other specified diseases of the digestive system; Translations: [Gas bloat syndrome] Onset: 4 Episodic Other infections; including parasitic (1 source) Personal history of other infectious and parasitic diseases; Translations: [History of sepsis] Onset: 4 Episodic Other liver diseases (20 sources) Increased creatine kinase level; Translations: [Abnormal levels of other serum enzymes] Onset: 6 01-25-2016 Episodic Other lower respiratory disease (4 sources) Shortness of breath; Translations: [Shortness of breath] Onset: 4 Episodic Other lower respiratory disease (20 sources) Respiratory tract congestion; Translations: [Other specified respiratory disorders] Onset: 4 09-11-2023 Episodic Other lower respiratory disease (2 sources) Hypoxemia; Translations: [Hypoxemia] Onset: 4 Episodic Other lower respiratory disease (1 source) Other nonspecific abnormal finding of lung field; Translations: [Lung nodules] Onset: 4 Episodic Other nervous system disorders (20 sources) Abnormal gait; Translations: [Unsteadiness on feet] Onset: 2 Episodic Other nervous system disorders (1 source) Other abnormalities of gait and mobility; Translations: [Balance disorder] Onset: 4 Episodic Other non-traumatic joint disorders (20 sources) Pain in lower limb; Translations: [Pain in unspecified knee] Onset: 5 Resolved: 0 05-18-2020 Episodic Other screening for suspected conditions (not mental disorders or infectious disease) (20 sources) Elevated C-reactive protein; Translations: [Elevated C-reactive protein (CRP)] Onset: 5 01-28-2023 Episodic Other upper respiratory infections (20 sources) Acute upper respiratory infection; Translations: [Acute upper respiratory infection, unspecified] Onset: 4 Resolved: 5 Episodic Paralysis (20 sources) Cauda equina syndrome; Translations: [Cauda equina syndrome] Onset: 0 Resolved: 0 04-27-2020 Chronic Pleurisy; pneumothorax; pulmonary collapse (2 sources) Pleural effusion; Translations: [Pleural effusion, not elsewhere classified] Onset: 4 08-11-2024 Episodic Pneumonia (except that caused by tuberculosis or sexually transmitted disease) (6 sources) Pneumonia; Translations: [Pneumonia, unspecified organism] Onset: 4 08-11-2024 Episodic Residual codes; unclassified (20 sources) History of lumbar laminectomy; Translations: [Other specified postprocedural states] Onset: 2 Episodic Residual codes; unclassified (2 sources) Tobacco use; Translations: [Tobacco use] Onset: 4 Episodic Residual codes; unclassified (1 source) Localized edema; Translations: [Bilateral leg edema] Onset: 5 Episodic Septicemia (except in labor) (4 sources) Sepsis; Translations: [Sepsis, unspecified organism] Onset: 4 08-02-2024 Episodic Spondylosis; intervertebral disc disorders; other back problems (20 sources) Spinal stenosis of lumbar region; Translations: [Spinal stenosis, lumbar region without neurogenic claudication] Onset: 9 Resolved: 1 04-30-2020 Episodic Urinary tract infections (12 sources) Acute cystitis; Translations: [Acute cystitis with hematuria] Onset: 4 Episodic Viral infection (4 sources) Disease caused by 2019-nCoV; Translations: [COVID-19] Onset: 4 Episodic Results Test Name Value Interpretation Reference Range Facility CNOVon 03-02-2025 CNOV Normal [facility] XR ANKLE 2V AP/LAT RTon 02-08 XR ANKLE 2V AP/LAT RT Normal [facility] XR FOOT 3V AP/LAT/OBL RTon 0 03-02-2025 XR FOOT 3V AP/LAT/OBL RT Normal [facility] Bacteria Ur Culton 5 Bacteria identified Cx Nom (U) ORGANISM ID: 1 10,000 -<50,000 CFU/ml Normal urogenital bill Normal [facility] Comment on above: Performed By: #### 6 30-4 ####[facility] LABCLIA [id number] [address] [place] [facility] CNOVon 02-25-2025 CNOV Normal [facility] UA DIP, URINE (POC)on 2024 BILIRUBIN UA (POCT) Negative Negative [facility] CLARITY UA (POCT) Clear [facility] COLOR UA (POCT) Yellow [facility] GLUCOSE UA (POCT) Negative Negative mg/dL [facility] Hemoglobin Ql (U) Negative Negative [facility] KETONE UA (POCT) Negative Negative mg/dL [facility] LEUKOCYTES UA (POCT) Negative Negative [facility] NITRITE UA (POCT) Negative Negative [facility] PH UA (POCT) 5.5 4.5 - 8.0 [facility] Protein Ql (U) Negative Negative mg/dL [facility] SPECIFIC GRAVITY UA (POCT) 1.01 1.005 - 1.030 [facility] UROBILINOGEN UA (POCT) 0.2 Leonie l E.U./dL [facility] Location:[facility], [address] [place] [address], [place], [place], [id number] [place] [address] POINT OF CARE [facility] Orthopedic Visit Reporton Orthopedic Visit Report Normal [facility] Bacteria Ur Culton 5 Bacteria identified Cx Nom (U) ORGANISM ID: 1 <10,000 CFU/ml Normal urogenital bill Normal [facility] Comment on above: Performed By: #### 6 30-4 ####[facility] LABCLIA [id number] [place] [address] [place] CNOVon 01-12-2025 CNOV Normal [facility] UA DIP, URINE (POC)on 2024 BILIRUBIN UA (POCT) Negative Negative [facility] CLARITY UA (POCT) Clear [facility] COLOR UA (POCT) Yellow [facility] GLUCOSE UA (POCT) Negative Negative mg/dL [facility] Hemoglobin Ql (U) Negative Negative [facility] KETONE UA (POCT) Negative Negative mg/dL [facility] LEUKOCYTES UA (POCT) Negative Negative [facility] NITRITE UA (POCT) Negative Negative [facility] PH UA (POCT) 6 4.5 - 8.0 [facility] Protein Ql (U) Negative Negative mg/dL [facility] SPECIFIC GRAVITY UA (POCT) 1.015 1.005 - 1.030 [facility] UROBILINOGEN UA (POCT) 0.2 Leonie l E.U./dL [facility] Location:[address], [address] [place] [address] POINT OF CARE [facility] CBC panel Auto (Bld)on 12-25 Erythrocyte distribution width (RBC) [Ratio] 14.4 % Normal 11.5-15.0 [facility] Comment on above: Order Comment: Speci men Type: BLOOD SPECIMENOrdering Facility: [facility] Address: [address] [place] [address] Performed By: #### 5 8410-2 ####[facility] LABIA [id number] [place] [address] [place] Hematocrit (Bld) [Volume fraction] 42.3 % Normal 36.0-46.0 [facility] Comment on above: Order Comment: Speci men Type: BLOOD SPECIMENOrdering Facility: [facility] Address: [address] [place] [address] Performed By: #### 5 8410-2 ####[facility] LABCLIA [id number] [place] [address] [place] Hemoglobin (Bld) [Mass/Vol] 13.6 g/dL Normal 11.5-15.5 [facility] Comment on above: Order Comment: Speci men Type: BLOOD SPECIMENOrdering Facility: [facility] Address: [address] [place] [address] Performed By: #### 5 8410-2 ####[facility] LABIA [id number] [place] [address] [place] MCH (RBC) [Entitic mass] 26.7 pg Normal 26.0-34.0 [facility] Comment on above: Order Comment: Speci men Type: BLOOD SPECIMENOrdering Facility: [facility] Address: [address] [place] [address] Performed By: #### 5 8410-2 ####[facility] LABIA [id number] [address] [place] MCHC (RBC) [Mass/Vol] 32.2 g/dL Normal 30.5-36.[address] [facility] Comment on above: Order Comment: Speci men Type: BLOOD SPECIMENOrdering Facility: [facility] Address: [address] [place] [address] Performed By: #### 5 8410-2 ####[facility] [id number] [place] [address] [place] MCV (RBC) [Entitic vol] 83.1 fL Normal 80.0-100.0 [facility] Comment on above: Order Comment: Speci men Type: BLOOD SPECIMENOrdering Facility: [facility] Address: [address] [place] [address] Performed By: #### 5 8410-2 ####[facility] LABIA [id number] [place] [address] [place] Nucleated RBC (Bld) [#/Vol] 10*3/uL Normal <0.01 [facility] Comment on above: Order Comment: Speci men Type: BLOOD SPECIMENOrdering Facility: [facility] Address: [address] [place] [address] Performed By: #### 5 8410-2 ####[facility] LABIA [id number] [place] [address] [place] Platelet mean volume (Bld) [Entitic vol] 10.2 fL Normal 9.0-12.7 [facility] Comment on above: Order Comment: Speci men Type: BLOOD SPECIMENOrdering Facility: [facility] Address: [address] [place] [address] Performed By: #### 5 8410-2 ####[facility] LABIA [id number] [place] [address] [place] Platelets (Bld) [#/Vol] 297 10*3/uL Normal 150-400 [facility] Comment on above: Order Comment: Speci men Type: BLOOD SPECIMENOrdering Facility: [facility] Address: [address] [place] [address] Performed By: #### 5 8410-2 ####[facility] LABIA [id number] [place] [address] [place] RBC (Bld) [#/Vol] 5.09 10*6/uL Normal 3.90-5.20 [facility] Comment on above: Order Comment: Speci men Type: BLOOD SPECIMENOrdering Facility: [facility] Address: [address] [place] [address] Performed By: #### 5 8410-2 ####[facility] LABIA [id number] [place] [address] [place] WBC (Bld) [#/Vol] 7.77 10*3/uL Normal 3.70-11.00 [facility] Comment on above: Order Comment: Speci men Type: BLOOD SPECIMENOrdering Facility: [facility] Address: [address] [place] [address] Performed By: #### 5 8410-2 ####[facility] LABCLIA [id number] [address] [address] [place] Comprehensive metabolic 2000 panelon 12-25-2024 Albumin [Mass/Vol] 4.3 g/dL Normal 3.9-4.9 [facility] Comment on above: Order Comment: Speci men Type: BLOOD SPECIMENOrdering Facility: [facility] Address: [address] [place] [address] Performed By: #### 1 9123-9, 66153-1, 42466-3 ####[facility] LABCLIA [id number] [place] [id number] [place] ALP [Catalytic activity/Vol] 102 U/L Normal 34-123 [facility] Comment on above: Order Comment: Speci men Type: BLOOD SPECIMENOrdering Facility: [facility] Address: [address] [place] [address] Performed By: #### 1 9123-9, 96927-4, 42399-7 ####[facility] LABCLIA [id number] [place] [address] [place] ALT [Catalytic activity/Vol] 14 U/L Normal 7-38 [facility] Comment on above: Order Comment: Speci men Type: BLOOD SPECIMENOrdering Facility: [facility] Address: [address] [place] [address] Performed By: #### 1 9123-9, 47321-0, 07904-8 ####[facility] LABCLIA [id number] [address] [address] [place] Anion gap [Moles/Vol] 12 mmol/L Normal 8-[address] [facility] Comment on above: Order Comment: Speci men Type: BLOOD SPECIMENOrdering Facility: [facility] Address: [address] [place] [address] Performed By: #### 1 9123-9, 57279-2, 41838-4 ####[facility] LABCLIA [id number] [address] [address] [place] AST [Catalytic activity/Vol] 25 U/L Normal 13-35 [facility] Comment on above: Order Comment: Speci men Type: BLOOD SPECIMENOrdering Facility: [facility] Address: [address] [place] [address] Performed By: #### 1 9123-9, 35480-0, 86559-6 ####[facility] LABCLIA [id number] [address] [address] [place] Bilirubin [Mass/Vol] 0.3 mg/dL Normal 0.2-1.3 [facility] Comment on above: Order Comment: Speci men Type: BLOOD SPECIMENOrdering Facility: [facility] Address: [address] [place] [address] Performed By: #### 1 9123-9, 59852-2, 28274-5 ####[facility] LABCLIA [id number] [place] [address] [place] Calcium [Mass/Vol] 9.4 mg/dL Normal 8.5-10.2 [facility] Comment on above: Order Comment: Speci men Type: BLOOD SPECIMENOrdering Facility: [facility] Address: [address] [place] [address] Performed By: #### 1 9123-9, 04998-9, 10600-0 ####[facility] LABCLIA [id number] [address] [address] [place] Chloride [Moles/Vol] 102 mmol/L Normal 98-107 [facility] Comment on above: Order Comment: Speci men Type: BLOOD SPECIMENOrdering Facility: [facility] Address: [address] [place] [address] Performed By: #### 1 9123-9, 43657-9, 67258-1 ####[facility] LABCLIA [id number] [place] [address] [place] CO2 [Moles/Vol] 26 mmol/L Normal 22-30 [facility] Comment on above: Order Comment: Speci men Type: BLOOD SPECIMENOrdering Facility: [facility] Address: [address] [place] [address] Performed By: #### 1 9123-9, 27283-1, 85140-7 ####[facility] LABCLIA [id number] [place] [address] [place] Creatinine [Mass/Vol] 0.54 mg/dL Low 0.58-0.[address] [facility] Comment on above: Order Comment: Speci men Type: BLOOD SPECIMENOrdering Facility: [facility] Address: [address] [place] [address] Performed By: #### 1 9123-9, 84733-5, 82997-5 ####[facility] LABIA [id number] [place] [address] [place] Creatinine and Glomerular filtration rate.predicted panel (S/P/Bld) 103 mL/min/1.73m??? Normal >=60 [facility] Comment on above: Order Comment: Nancy [place] Type: BLOOD SPECIMENOrdering Facility: [facility] Address: [address] [place] [address] Result Comment: Inge mated Glomerular Filtration Rate (eGFR) is calculated using the 2020 CKD-EPI creatinine equation. This equation utilizes serum creatinine, sex, and age as parameters. The creatinine assay has traceable calibration to isotope dilution-mass spectrometry. Refer to KDIGO guidelines for clinical interpretation. In patients with unstable renal function, e.g. those with acute kidney injury, the eGFR may not accurately reflect actual GFR. Performed By: #### 1 9123-9, 79326-4, 10112-7 ####[facility] LABCLIA [id number] [place] [address] [place] Glucose [Mass/Vol] 123 mg/dL High 74-99 [facility] Comment on above: Order Comment: Speci men Type: BLOOD SPECIMENOrdering Facility: [facility] Address: [address] [place], [place] [address] Result Comment: The [place] Diabetes Association (ADA) provides guidance for cutoff values for fasting glucose and random glucose. The ADA defines fasting as no caloric intake for at least 8 hours. Fasting plasma glucose results between 100 to 125 mg/dL indicate increased risk for diabetes (prediabetes).Fasting plasma glucose results greater than or equal to 126 mg/dL meet the criteria for diagnosis of diabetes. In the absence of unequivocal hyperglycemia, results should be confirmed by repeat testing. In a patient with classic symptoms of hyperglycemia or hyperglycemic crisis, random plasma glucose results greater than or equal to 200 mg/dL meet the criteria for diagnosis of diabetes.Reference: Standards of Medical Care in Diabetes 2016, [place] [employer] Association. Diabetes Care. 2016.39(Suppl 1). Performed By: #### 1 9123-9, 73476-8, 29553-5 ####[facility] LABCLIA [id number] [place] [address] [place] Potassium [Moles/Vol] 3.6 mmol/L Low 3.7-5.[address] [facility] Comment on above: Order Comment: Nancy men Type: BLOOD SPECIMENOrdering Facility: [facility] Address: [address] [place] [address] Performed By: #### 1 9123-9, 23630-9, 80907-2 ####[facility] LABCLIA [id number] [place] [address] [place] Protein [Mass/Vol] 7.3 g/dL Normal 6.3-8.0 [facility] Comment on above: Order Comment: Nancy men Type: BLOOD SPECIMENOrdering Facility: [facility] Address: [address] [place], [place] [address] Performed By: #### 1 9123-9, 83973-4, 78502-5 ####[facility] LABCLIA [id number] [facility] [address] [address] [place] Sodium [Moles/Vol] 140 mmol/L Normal 136-144 [facility] Comment on above: Order Comment: Yesyi men Type: BLOOD SPECIMENOrdering Facility: [facility] Address: [address] [place] [address] Performed By: #### 1 9123-9, 73690-8, 52710-2 ####[facility] LABCLIA [id number] [place] [address] [place] Urea nitrogen [Mass/Vol] 9 mg/dL Normal 7-21 [facility] Comment on above: Order Comment: Yesyi men Type: BLOOD SPECIMENOrdering Facility: [facility] Address: [address] [place] [address] Performed By: #### 1 9123-9, 23855-7, 57159-2 ####[facility] LABCLIA [id number] [place] [address] [place] HbA1c (Bld)on 12-25-2024 Average glucose Estimated from glycated hemoglobin (Bld) [Mass/Vol] 154 mg/dL Normal [facility] Comment on above: Order Comment: Nancy men Type: BLOOD SPECIMENOrdering Facility: [facility] Address: [address] [place] [address] Result Comment: eAG: (Estimated average glucose) is a calculated value from HgbA1c and is jewelry sales representative of the average blood glucose level in the last 2-3 month period. Performed By: #### 5 5454-3 ####[facility] LABIA [id number] [place] [address] [place] HbA1c (Bld) [Mass fraction] 7.0 % High 4.3-5.6 [facility] Comment on above: Order Comment: Nancy shasta Type: BLOOD SPECIMENOrdering Facility: [facility] Address: [address] [place] [address] Result Comment: [place] Diabetes Association guidelines indicate that patients with HgbA1c in the range 5.7-6.4% are at increased risk for development of diabetes, and intervention by lifestyle modification may be beneficial. HgbA1c greater or equal to 6.5% is considered diagnostic of diabetes. Performed By: #### 5 5454-3 ####[facility] LABCLIA [id number] [place] [address] [place] Lipid 1996 panelon 5 Cholesterol [Mass/Vol] 117 mg/dL Normal <200 [facility] Comment on above: Order Comment: Speci men Type: BLOOD SPECIMENOrdering Facility: [facility] Address: [address] [place] [address] Result Comment: <200 mg/dL, Desirable 200-239 mg/dL, Borderline high>239 mg/dL, High Performed By: #### 1 9123-9, 86553-4, 97950-1 ####[facility] LABCLIA [id number] [address] [facility] Cholesterol in HDL [Mass/Vol] 23 mg/dL Low >39 [facility] Comment on above: Order Comment: Yesyi [facility] Type: BLOOD SPECIMENOrdering Facility: [facility] Address: [address] [place] [address] Result Comment: 40-5 9 mg/dL, Acceptable>59 mg/dL, High: Negative risk factor for coronary heart disease<40 mg/dL, Low: Positive risk factor for coronary heart disease Performed By: #### 1 9123-9, 26918-5, 85957-8 ####[facility] LABCLIA [id number] [place] [address] [facility] Cholesterol in LDL [Mass/Vol] 44 mg/dL Normal <100 [facility] Comment on above: Order Comment: Speci [facility] Type: BLOOD SPECIMENOrdering Facility: [facility] Address: [address] [place] [address] Result Comment: <100 mg/dL, Optimal 100-129 mg/dL, Near optimal/above optimal 130-159 mg/dL, Borderline high 160-189 mg/dL, High>189 mg/dL, Very highSecondary prevention optimal LDL Cholesterol levels are recommended to be < 70 mg/dL Performed By: #### 1 9123-9, 26515-5, 01958-8 ####[facility] LABCLIA [id number] [place] [address] [place] Cholesterol in LDL/Cholesterol in HDL [Mass ratio] 1.91 {ratio} Normal <2.54 [facility] Comment on above: Order Comment: Speci men Type: BLOOD SPECIMENOrdering Facility: [facility] Address: [address] [place] [address] Result Comment: Refe lesliece:1. National Cholesterol Education Program ATP III Guideline At-A-Glance Quick Desk Reference: National Heart, Lung, and Blood [place]. National Institutes of Health. 2001: NIH Publication No. 01-3305.2. An International Atherosclerosis Society position paper: global recommendations for the management of dyslipidemia: executive summary, Atherosclerosis. 2014: 232(2):410-413. Performed By: #### 1 9123-9, 88715-6, 07004-9 ####[facility] LABCLIA [id number] [place] [address] [place] Cholesterol in VLDL [Mass/Vol] 50 mg/dL High <30 [facility] Comment on above: Order Comment: Speci men Type: BLOOD SPECIMENOrdering Facility: [facility] Address: [address] [place] [address] Performed By: #### 1 9123-9, 38479-6, 58743-6 ####[facility] LABCLIA [id number] [address] [place] Cholesterol non HDL [Mass/Vol] 94 mg/dL Normal <130 [facility] Comment on above: Order Comment: Speci men Type: BLOOD SPECIMENOrdering Facility: [facility] Address: [address] [place] [address] Result Comment: <130 mg/dL, Optimal 130-159 mg/dL, Near optimal/above optimal 160-189 mg/dL, Borderline high 190-219 mg/dL, High>219 mg/dL, Very highSecondary prevention optimal non HDL Cholesterol levels are recommended to be <100 mg/dL Performed By: #### 1 9123-9, 01627-9, 81625-8 ####[facility] LABCLIA [id number] [address] [address] [place] Cholesterol.total/Chol esterol in HDL [Mass ratio] 5.09 {ratio} Normal <5.10 [facility] Comment on above: Order Comment: Speci men Type: BLOOD SPECIMENOrdering Facility: [facility] Address: [address] [place] [address] Performed By: #### 1 9123-9, 29295-5, 90864-6 ####[facility] LABIA [id number] [address] [place] FASTING TIME 12 hrs Normal [facility] Comment on above: Order Comment: Speci men Type: BLOOD SPECIMENOrdering Facility: [facility] Address: [address] [place] [address] Performed By: #### 1 9123-9, 58682-1, 29014-2 ####[facility] LABIA [id number] [place] [address] [place] Triglyceride [Mass/Vol] 249 mg/dL High <150 [facility] Comment on above: Order Comment: Speci men Type: BLOOD SPECIMENOrdering Facility: [facility] Address: [address] [place] [address] Result Comment: <150 mg/dL, Normal 150-199 mg/dL, Borderline high 200-499 mg/dL, High>499 mg/dL, Very high Performed By: #### 1 9123-9, 52435-3, 21046-0 ####[facility] LABIA [id number] [address] [address] [place] Magnesium SerPl-mCncon 12-25 Magnesium [Mass/Vol] 1.9 mg/dL Normal 1.7-2.3 [facility] Comment on above: Order Comment: Speci men Type: BLOOD SPECIMENOrdering Facility: [facility] Address: [address] [place] [address] [place] [address] Performed By: #### 1 9123-9, 22395-1, 18996-5 ####[facility] LABCLIA [id number] [facility] [place] [address] [place] Orthopedic Visit Reporton Orthopedic Visit Report Normal [facility] Magnetic resonance imaging r eportOrdered By: Tab Martinez on 12-19-2024 Study report [facility] Imaging Services [address] [place], [place] [id number] Spine Lumbar (Routine) MR#: [id number] Acct: [id number] Name: GARLAND DE SANTIAGO Rep #: [id number] : 1960 F 64 From: George Martinez DO PCP: Dr. Willam Estrada MD Status: RE G CLI Study:Spine Lumbar (Routine) Date of Exam: 12/18/24 Exam# [id number] Ordering Dr: Néstor Cabello PA PROCEDURE: SPINE LUMBAR (ROUTINE) 12/18/2024 REASON FOR EXAM: PAIN TECHNIQUE: Multiplaner MRI of the lumbar spine performed without contrast. Multiple pulse sequences were obtained. COMPARISON: None FINDINGS: Vertebral body heights are within normal limits. Negative for fracture or marrow replacement. Vertebral body hemangioma at T12. Grade 1 retrolisthesis of L1-2 and L2-3. Mild levoscoliosis. Conus medullaris is intact and terminates at L1. Mild paraspinal muscle atrophy. No paraspinal mass. L1-2: Posterior disc bulge. Mild bilateral facet arthrosis and ligamentum flavum hypertrophy. Mild spinal stenosis. Moderate bilateral foraminal narrowing. L2-3: Posterior disc bulge with superimposed small right central disc protrusion. Moderate bilateral facet arthrosis and ligamentum flavum hypertrophy. Moderate spinal stenosis. Moderate left and moderate/severe right foraminal narrowing. L3-4: Posterior disc bulge. Moderate bilateral facet arthrosis and ligamentum flavum hypertrophy. Mild/moderate spinal stenosis. Moderate bilateral foraminal narrowing, greater on the left. L4-5: Posterior disc bulge eccentric to the left. Moderate bilateral facet arthrosis. No significant spinal stenosis. Severe bilateral foraminal narrowing. L5-S1: No focal disc abnormality. Severe bilateral facet arthrosis. No significant spinal stenosis. Mild right and moderate left foraminal narrowing. MRI/Spine Lumbar (Routine) IMPRESSION: 1. Acquired multilevel spinal stenosis, greatest at L2-3 categorized as moderate. 2. Acquired multilevel foraminal narrowing, greatest at L4-5. See level by level comments above. 3. Retrolisthesis of L1-2 and L2-3. Mild levoscoliosis. Reading Location: [id number] CC: KEVIN Beckham; Dr. Willam Esrtada MD ~ 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: Signed [facility] Spine Lumbar (Routine)on Spine Lumbar (Routine) Normal [facility] CNPTOUTREACHon 12-11-2024 CNPTOUTREACH Normal [facility] CNPTOUTREACHon 12-09-2024 CNPTOUTREACH Normal [facility] CNPTOUTREACHon 12-04-2024 CNPTOUTREACH Normal [facility] CNPNon 11-26-2024 CNPN Normal [facility] CNOVon 11-25-2024 CNOV Normal [facility] CNOVon 11-24-2024 CNOV Normal [facility] CT Chest for screening [facility] ntraston 11-23-2024 IMPRESSION: LungRADS category: 2 S LungRADS modifier: Significant other (S), coronary artery calcification, moderate or severe LungRADS 0 reason: n/a Recommendations: Continue annual screening with LDCT in 12 months. Other actionable findings: Reference: [place] [employer]. Lung CT Screening Reporting and Data System (Lung-RADS). Available at: http://www.acr.org/Qualit y-Safety/Resources/LungRA DS 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: OLIVE Transcribe Date/Time: Nov 23 2024 4:24P Dictated by : RACHEL GUEVARA MD This examination was interpreted and the report reviewed and electronically signed by: RACHEL GUEVARA MD on Nov 23 2024 8:04PM [facility] DIVISION OF RADIOLOGY * * *Final Report* * * DATE OF EXAM: Nov 23 2024 3:54PM [facility] 0562 - CT LUNG SCREEN [facility] / PROCEDURE REASON: Tobacco use current * * * * Physician Interpretation * * * * EXAMINATION: CHEST CT WITHOUT CONTRAST (LOW-DOSE CT LUNG CANCER SCREENING PROTOCOL) CLINICAL HISTORY: Lung cancer LDCT screening ? absence of signs or symptoms of lung cancer. Nicotine dependence (cigarettes). Subsequent (annual) Technique: Spiral CT acquisition of the chest from the thoracic inlet to the upper abdomen without contrast. MQ: CTLCS_6 Patient characteristics: * Cnfr-np-Gwwew: 1960; Age at exam: 64 years * Gender: Female * Lung Disease: Asymptomatic (no signs or symptoms of lung disease) * Number of Pack Years: 54 * Current smoker (=0) or Number of Years since Quit: 0 * Ordering provider and NPI: JUSTYNA MORA [id number] * Interpreting radiologist and NPI: Jade [id number] Exam acquisition parameters: * Exam Date: 11/23/2024 3:54 PM * Site: [facility] * * CT System Video Clerk: Siemens * CT System Model: Sensation * Tube Current-Time (mA-sec): 33 * Peak Voltage (kV): 120V * Scan Time (sec): 11.37 * Scan Volume (z-length, cm): -30.35 * Pitch: 0.75 * Slice Thickness (mm): 1.5 * CT Dose-Length Product: 106 mGy*cm * CT Dose Index: 2.55mGy * CT Dose Reduction Method: Automated exposure control(AEC) and iterative recon COMPARISON: 06/23/2024 RESULT: Are nodules present? Yes New nodules: None Enlarging nodules: None Other lung nodule comments: Few sub-6 mm (average diameter) pulmonary nodules, stable since the prior exam. For reference, 4.1 mm solid RIGHT upper lobe nodule (image 112), 2.5 mm solid LEFT lower lobe nodule abutting the LEFT hemidiaphragm (image 132), 2 mm solid RIGHT lower lobe nodule (image 123) and 2 mm solid RIGHT upper lobe nodule (image 125). Other findings: Respiratory bronchiolitis with bronchial wall thickening and mild air trapping. Borderline ectasia of the ascending thoracic aorta measuring up to 0.9 cm. Mild to moderate atherosclerotic calcifications in the thoracic aorta. Small hiatal hernia. Degenerative changes in the thoracic spine. Remote fracture of the posterior LEFT 11th rib. Focal calcification versus biopsy clip in the RIGHT breast. Emphysema: None, , Incidental coronary calcium as automatically processed and calculated using AI: Total Coronary Calcium Score = [100+] Agatston Units Percentile Rank (age and gender matched relative to reference population): [75th-100th] percentile* [* [email or web address] [email or web address]/input.[email or web address]] Localizer images: No significant findings. DIVISION OF RADIOLOGY Provider, [facility] - 11/23/2024 * * *Final Report* * * DATE OF EXAM: Nov 23 2024 3:54PM [facility] 0562 - CT LUNG SCREEN [facility] / PROCEDURE REASON: Tobacco use current * * * * Physician Interpretation * * * * EXAMINATION: CHEST CT WITHOUT CONTRAST (LOW-DOSE CT LUNG CANCER SCREENING PROTOCOL) CLINICAL HISTORY: Lung cancer LDCT screening ? absence of signs or symptoms of lung cancer. Nicotine dependence (cigarettes). Subsequent (annual) Technique: Spiral CT acquisition of the chest from the thoracic inlet to the upper abdomen without contrast. MQ: CTLCS_6 Patient characteristics: * Jhnp-yp-Hrmqp: 1960; Age at exam: 64 years * Gender: Female * Lung Disease: Asymptomatic (no signs or symptoms of lung disease) * Number of Pack Years: 54 * Current smoker (=0) or Number of Years since Quit: 0 * Ordering provider and NPI: JUSTYNA MORA [id number] * Interpreting radiologist and NPI: Jade [id number] Exam acquisition parameters: * Exam Date: 11/23/2024 3:54 PM * Site: [facility] * * CT System Video Clerk: [employer] * CT System Model: Sensation * Tube Current-Time (mA-sec): 33 * Peak Voltage (kV): 120V * Scan Time (sec): 11.37 * Scan Volume (z-length, cm): -30.35 * Pitch: 0.75 * Slice Thickness (mm): 1.5 * CT Dose-Length Product: 106 mGy*cm * CT Dose Index: 2.55mGy * CT Dose Reduction Method: Automated exposure control(AEC) and iterative recon COMPARISON: 06/23/2024 RESULT: Are nodules present? Yes New nodules: None Enlarging nodules: None Other lung nodule comments: Few sub-6 mm (average diameter) pulmonary nodules, stable since the prior exam. For reference, 4.1 mm solid RIGHT upper lobe nodule (image 112), 2.5 mm solid LEFT lower lobe nodule abutting the LEFT hemidiaphragm (image 132), 2 mm solid RIGHT lower lobe nodule (image 123) and 2 mm solid RIGHT upper lobe nodule (image 125). Other findings: Respiratory bronchiolitis with bronchial wall thickening and mild air trapping. Borderline ectasia of the ascending thoracic aorta measuring up to 0.9 cm. Mild to moderate atherosclerotic calcifications in the thoracic aorta. Small hiatal hernia. Degenerative changes in the thoracic spine. Remote fracture of the posterior LEFT 11th rib. Focal calcification versus biopsy clip in the RIGHT breast. Emphysema: None, , Incidental coronary calcium as automatically processed and calculated using AI: Total Coronary Calcium Score = [100+] Agatston Units Percentile Rank (age and gender matched relative to reference population): [75th-100th] percentile* [* [email or web address] [email or web address]/input.aspx] Localizer images: No significant findings. IMPRESSION IMPRESSION: LungRADS category: 2 S LungRADS modifier: Significant other (S), coronary artery calcification, moderate or severe LungRADS 0 reason: n/a Recommendations: Continue annual screening with LDCT in 12 months. Other actionable findings: Reference: [place] [employer]. Lung CT Screening Reporting and Data System (Lung-RADS). Available at: http://www.acr.org/Qualit y-Safety/Resources/LungRA DS 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: OLIVE Transcribe Date/Time: Nov 23 2024 4:24P Dictated by : RACHEL GUEVARA MD This examination was interpreted and the report reviewed and electronically signed by: RACHEL GUEVARA MD on Nov 23 2024 8:04PM EST [facility] Radiology Study observation (narrative) [facility] CT Chest for screening WO co ntrastOrdered By: [facility] Provider on 11-23-2024 [facility] CT LUNG SCREEN WO IVCONon CT LUNG SCREEN WO IVCON Normal [facility] CNPNon 11-19-2024 CNPN Normal [facility] CNOVon 11-18-2024 CNOV Normal [facility] Orthopedic Visit Reporton Orthopedic Visit Report Normal [facility] NCS and/or EMG Patienton NCS and/or EMG Patient Normal [facility] PT D/C Summary (1)on 025 PT D/C Summary (1) Normal [facility] Cardiology Visit Reporton Cardiology Visit Report Normal [facility] Office Visit Reporton 2024 Office Visit Report Normal [facility] DBT Breast - bilateral scree ningon 10-07-2024 IMPRESSION: There is no mammographic evidence of malignancy in either breast. Routine screening mammogram is recommended. Annual mammogram will be due in 1 year. BI-RADS Category 1: Negative RISK: Based on the Tyrer-Cuzick (TC) risk assessment model, this patient has a 4.9% lifetime risk of developing breast cancer, meaning they are at average risk for developing breast cancer. However, this is only an estimate based on available history provided on the patient's questionnaire. We encourage all patients to talk with their providers about these results, further recommendations for managing breast health, and appropriate supplemental screening options if the patient has dense breast tissue. Interpreting Radiologist: Indigo Dhaliwal M.D. Electronically signed on: 10/07/2024 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: ANAMIKA Transcribe Date/Time: Oct 07 2024 3:03P Dictated by: INDIGO DHALIWAL MD This examination was interpreted and the report reviewed and electronically signed by: INDIGO DHALIWAL MD on Oct 07 2024 10:49PM [facility] DIVISION OF RADIOLOGY * * *Final Report* * * DATE OF EXAM: Oct 07 2024 3:26PM [facility] 0582 - [facility] SCREENING W STARLA / PROCEDURE REASON: multiple diagnoses * * * * Physician Interpretation * * * * RESULT: [facility] [address] [place] [address] #[id number] - [facility] SCREENING W STARLA HISTORY: 64 year-old patient seen for screening and is asymptomatic in both breasts. Patient states no personal history of breast cancer. Patient states no personal history of other cancers. COMPARISON STUDIES: The present examination has been compared to prior imaging studies dated 09/11/2021 (mammogram), 09/14/2022 (mammogram) and 09/30/2023 (mammogram). MAMMOGRAM TECHNIQUE: The study was acquired using full field digital technology and interpreted from soft copy. Digital Breast Tomosynthesis (DBT) images were obtained and used to assist in the interpretation of this examination. MAMMOGRAM FINDINGS: There are scattered areas of fibroglandular density. No suspicious masses, calcifications or other abnormalities are seen in either breast. There are no significant interval changes. DIVISION OF RADIOLOGY Provider, [facility] - 10/07/2024 * * *Final Report* * * DATE OF EXAM: Oct 07 2024 3:26PM [facility] 0582 - [facility] SCREENING W STARLA / PROCEDURE REASON: multiple diagnoses * * * * Physician Interpretation * * * * RESULT: [facility] [address] [place] [address] #[id number] - [facility] SCREENING W STARLA HISTORY: 64 year-old patient seen for screening and is asymptomatic in both breasts. Patient states no personal history of breast cancer. Patient states no personal history of other cancers. COMPARISON STUDIES: The present examination has been compared to prior imaging studies dated 09/11/2021 (mammogram), 09/14/2022 (mammogram) and 09/30/2023 (mammogram). MAMMOGRAM TECHNIQUE: The study was acquired using full field digital technology and interpreted from soft copy. Digital Breast Tomosynthesis (DBT) images were obtained and used to assist in the interpretation of this examination. MAMMOGRAM FINDINGS: There are scattered areas of fibroglandular density. No suspicious masses, calcifications or other abnormalities are seen in either breast. There are no significant interval changes. IMPRESSION IMPRESSION: There is no mammographic evidence of malignancy in either breast. Routine screening mammogram is recommended. Annual mammogram will be due in 1 year. BI-RADS Category 1: Negative RISK: Based on the Tyrer-Cuzick (TC) risk assessment model, this patient has a 4.9% lifetime risk of developing breast cancer, meaning they are at average risk for developing breast cancer. However, this is only an estimate based on available history provided on the patient's questionnaire. We encourage all patients to talk with their providers about these results, further recommendations for managing breast health, and appropriate supplemental screening options if the patient has dense breast tissue. Interpreting Radiologist: Indigo Dhaliwal M.D. Electronically signed on: 10/07/2024 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: ANAMIKA Transcribe Date/Time: Oct 07 2024 3:03P Dictated by: INDIGO DHALIWAL MD This examination was interpreted and the report reviewed and electronically signed by: INDIGO DHALIWAL MD on Oct 07 2024 10:49PM EST [facility] Radiology Study observation (narrative) [facility] DBT Breast - bilateral scree ningOrdered By: Ccf Provider on 10-07-2024 [facility] JAVIER SCREENING W TOMOon 10-07 JAVIER [facility]CRE[facility]ING [facility] STAR[facility] Inital Evaluation (1) - PTon 09-25-2024 Inital Evaluation (1) - PT Normal [facility] Cerv Spine 4 or 5 Viewson Cerv Spine 4 or 5 Views Normal [facility] Orthopedic Visit Reporton Orthopedic Visit Report Normal [facility] Spine Cervical (Routine)on 1 11-04-2023 Spine Cervical (Routine) Normal [facility] CNPTOUTREACHon 08-14-2024 CNPTOUTREACH Normal [facility] CNOVon 08-12-2024 CNOV Normal [facility] CNOVon 08-11-2024 CNOV Normal [facility] Eosinophils Auto (Bld) [#/Vo l]on 08-11-2024 Eosinophils (Bld) [#/Vol] 0.98 10*3/uL High [facility] Interpretation and review of laboratory results Abnormal [facility] Eosinophils (Bld) [#/Vol] 0.98 10*3/uL High <0.46 [facility] Comment on above: Order Comment: Speci men Type: BLOOD SPECIMENOrdering Facility: [facility] Address: [address] [place] [address] Performed By: #### 7 11-2 ####[facility] LABCLIA [id number] [place] [address] [place] IgE SerPl-aCncon 08-11-2024 IgE Qn 413.0 kU/l High <114.0 [facility] Comment on above: Order Comment: Speci men Type: BLOOD SPECIMENOrdering Facility: [facility] Address: [address] [place] [address] Performed By: #### 1 9113-0 ####[facility] LABCLIA [id number] [place] [address] [place] [facility]NP [facility] Natriuretic peptide.B prohormone N-Terminal [Mass/Vol] 457 pg/mL High <125 [facility] Comment on above: Order Comment: Speci men Type: BLOOD SPECIMENOrdering Facility: [facility] Address: [address] [place] [address] Performed By: #### 3 3762-6 ####[facility] LABIA [id number] [place] [address] [place] CNPNon 08-10-2024 CNPN Normal [facility] Venous Duplex US, Unilateral on 08-10-2024 Venous Duplex US, Unilateral Normal [facility] 12 Lead EKGon 08-09-2024 12 Lead EKG Normal [facility] Absolute neutrophil countOrd ered By: Kemi Velez on 08-09-2024 Neutrophils (Bld) [#/Vol] 6.3 10*3/uL 2.0-7.7 [facility] Basic Metabolic Profile (BMP )on 08-09-2024 BUN/CRE 21.2 RATIO High 10-20 [facility] Comment on above: Order Comment: 'TROP ' Serial specimen #1, #2 or #3: 1 Performed By: #### L 501.4020, L500.2500, L100.0100 ####[facility] [address] [place], [address] CA,Total 9.2 mg/dL Normal 8.5-10.1 [facility] Comment on above: Order Comment: 'TROP ' Serial specimen #1, #2 or #3: 1 Performed By: #### L 501.4020, L500.2500, L100.0100 ####[facility] [address] [place], [address] Chloride [Moles/Vol] 109 mmol/L High 98-107 [facility] Comment on above: Order Comment: 'TROP ' Serial specimen #1, #2 or #3: 1 Performed By: #### L 501.4020, L500.2500, L100.0100 ####[facility] [address] [place], [address] CO2 [Moles/Vol] 22.0 mmol/L Normal 21.0-32.0 [facility] Comment on above: Order Comment: 'TROP ' Serial specimen #1, #2 or #3: 1 Performed By: #### L 501.4020, L500.2500, L100.0100 ####[facility] [address] [place], [address] Creatinine [Mass/Vol] 0.52 mg/dL Low 0.55-1.02 [facility] Comment on above: Order Comment: 'TROP ' Serial specimen #1, #2 or #3: 1 Result Comment: The validity of the calculated GFR GFRAA in patients over70 years has not been determined. Clinical correlation isessential. Performed By: #### L 501.4020, L500.2500, L100.0100 ####[facility] [address] [place], [address] ECRCL 122.78 ml/min Normal [facility] Comment on above: Order Comment: 'TROP ' Serial specimen #1, #2 or #3: 1 Performed By: #### L 501.4020, L500.2500, L100.0100 ####[facility] [address] [place], [address] EST GFR - AA 153 mL/min Normal >60 [facility] Comment on above: Order Comment: 'TROP ' Serial specimen #1, #2 or #3: 1 Result Comment: Afri can [place] GFR Calc Performed By: #### L 501.4020, L500.2500, L100.0100 ####[facility] [address] [place], [address] GAP 9 Normal 5-15 [facility] Comment on above: Order Comment: 'TROP ' Serial specimen #1, #2 or #3: 1 Performed By: #### L 501.4020, L500.2500, L100.0100 ####[facility] [address] [place], [address] GFR/1.73 sq M.predicted among non-blacks MDRD (S/P/Bld) [Vol rate/Area] 126 mL/min/{1.73_m2} Normal >60 [facility] Comment on above: Order Comment: 'TROP ' Serial specimen #1, #2 or #3: 1 Result Comment: Non- GFR Calc Performed By: #### L 501.4020, L500.2500, L100.0100 ####[facility] [address] [place], [address] Glucose [Mass/Vol] 109 mg/dL High 74-106 [facility] Comment on above: Order Comment: 'TROP ' Serial specimen #1, #2 or #3: 1 Result Comment: Fast ing Glucose result from 100 to 125 mg/dLsuggests IMPAIRED HOMEOSTASIS per A.D.A. criteria. Performed By: #### L 501.4020, L500.2500, L100.0100 ####[facility] [address] [place], [address] Potassium [Moles/Vol] 3.5 mmol/L Normal 3.5-5.1 [facility] Comment on above: Order Comment: 'TROP ' Serial specimen #1, #2 or #3: 1 Performed By: #### L 501.4020, L500.2500, L100.0100 ####[facility] [address] [place], [address] Sodium [Moles/Vol] 140 mmol/L Normal 136-145 [facility] Comment on above: Order Comment: 'TROP ' Serial specimen #1, #2 or #3: 1 Performed By: #### L 501.4020, L500.2500, L100.0100 ####[facility] [address] [place], [address] Urea nitrogen [Mass/Vol] 11 mg/dL Normal 7-18 [facility] Comment on above: Order Comment: 'TROP ' Serial specimen #1, #2 or #3: 1 Performed By: #### L 501.4020, L500.2500, L100.0100 ####[facility] [address] [place], [address] Basophil percentageOrdered B y: Kemi Velez on 08-09-2024 Basophils/100 WBC (Bld) 0.4 % 0-1 [facility] Bilirubin Test strip Ql (U)O rdered By: Julián Schrader on 08-09-2024 Bilirubin Ql (U) Negative Negative [facility] Blood urea nitrogen (BUN)/cr eatinine ratioOrdered By: Kemi Velez on 08-09-2024 Urea nitrogen/Creatinine [Mass ratio] 21.2 mg/mg High 10-20 [facility] CBC W/Diff, Automatedon 12-0 -2023 Absolute Lymph 3.06 X10 3/uL Normal 0.83-4.51 [facility] Comment on above: Performed By: #### L 501.4020, L500.2500, L100.0100 ####[facility] [address] [place], [address] Absolute Neut 6.3 X10 3/uL Normal 2.0-7.7 [facility] Comment on above: Performed By: #### L 501.4020, L500.2500, L100.0100 ####[facility] [address] [place], [address] Basophils/100 WBC (Bld) 0.4 % Normal 0-1 [facility] Comment on above: Performed By: #### L 501.4020, L500.2500, L100.0100 ####[facility] [address] [place], [address] Eosinophils/100 WBC (Bld) 13.3 % High 0-5 [facility] Comment on above: Performed By: #### L 501.4020, L500.2500, L100.0100 ####[facility] [address] [place], [address] Erythrocyte distribution width (RBC) [Ratio] 13.6 % Normal 11.6-14.6 [facility] Comment on above: Performed By: #### L 501.4020, L500.2500, L100.0100 ####[facility] [address] [place], [address] Hematocrit (Bld) [Volume fraction] 34.9 % Low 37-47 [facility] Comment on above: Performed By: #### L 501.4020, L500.2500, L100.0100 ####[facility] [address] [place], [address] Hemoglobin (Bld) [Mass/Vol] 11.9 g/dL Low 12.0-15.0 [facility] Comment on above: Performed By: #### L 501.4020, L500.2500, L100.0100 ####[facility] [address] [place], [address] IG% 0.600 Normal 0.0-0.9 [facility] Comment on above: Result Comment: IG% - Immature Granulocytes (promyelocytes, myelocytes andmetamyelocytes) > 1% indicates that a LEFT SHIFT is Present. Performed By: #### L 501.4020, L500.2500, L100.0100 ####[facility] [address] [place], [address] Lymphocytes/100 WBC (Bld) 25.9 % Normal 19-41 [facility] Comment on above: Performed By: #### L 501.4020, L500.2500, L100.0100 ####[facility] [address] [place], [address] MCH (RBC) [Entitic mass] 29.0 pg Normal 27.0-32.0 [facility] Comment on above: Performed By: #### L 501.4020, L500.2500, L100.0100 ####[facility] [address] [place], [address] MCHC (RBC) [Mass/Vol] 34.1 g/dL Normal 32-36 [facility] Comment on above: Performed By: #### L 501.4020, L500.2500, L100.0100 ####[facility] [address] [place], [address] MCV (RBC) [Entitic vol] 84.9 fL Normal 81-99 [facility] Comment on above: Performed By: #### L 501.4020, L500.2500, L100.0100 ####[facility] [address] [place], [address] Monocytes/100 WBC (Bld) 6.5 % Normal 0-10 [facility] Comment on above: Performed By: #### L 501.4020, L500.2500, L100.0100 ####[facility] [address] [place], [address] Neutrophils/100 WBC (Bld) 53.3 % Normal 47-70 [facility] Comment on above: Performed By: #### L 501.4020, L500.2500, L100.0100 ####[facility] [address] [place], [address] Nucleated RBC (Bld) [#/Vol] 0 10*3/uL Normal 0-5 [facility] Comment on above: Performed By: #### L 501.4020, L500.2500, L100.0100 ####[facility] [address] [place], [address] Platelet mean volume (Bld) [Entitic vol] 9.8 fL Normal 6.2-12.0 [facility] Comment on above: Performed By: #### L 501.4020, L500.2500, L100.0100 ####[facility] [address] [place], [address] Platelets (Bld) [#/Vol] 353 10*3/uL Normal 150-450 [facility] Comment on above: Performed By: #### L 501.4020, L500.2500, L100.0100 ####[facility] [address] [place], [address] RBC (Bld) [#/Vol] 4.11 10*6/uL Low 4.2-5.4 [facility] Comment on above: Performed By: #### L 501.4020, L500.2500, L100.0100 ####[facility] [address] [place], [address] RDW SD 41.8 fl Normal 35.1-43.9 [facility] Comment on above: Performed By: #### L 501.4020, L500.2500, L100.0100 ####[facility] [address] [place], [address] WBC (Bld) [#/Vol] 11.8 10*3/uL High 4.4-11.0 [facility] Comment on above: Performed By: #### L 501.4020, L500.2500, L100.0100 ####[facility] [address] [place], [address] CTA Chest W/WO Contraston CTA Chest W/WO Contrast Normal [facility] Carbon dioxide measurementOr dered By: Kemi Velez on 08-09-2024 CO2 [Moles/Vol] 22.0 mmol/L 21.0-32.0 [facility] Chest PA and Lateralon 08-09 Chest PA and Lateral Normal [facility] Chloride measurementOrdered By: Kemi Velez on 08-09-2024 Chloride [Moles/Vol] 109 mmol/L High 98-107 [facility] D-Dimer Quantitative (DVT/PE )on 08-09-2024 D-DIMER QUANT 1.22 FEU/ug/m Invalid Interpretation Code 0.27-0.49 [facility] Comment on above: Result Comment: D-Di riley ELEVATED (>0.49): Additional studies and clinicalassessments are indicated to conclude diagnosis of:Deep Vein Thrombosis (DVT) or Pulmonary Embolism (PE)CRITICAL VALUE CALLED TO ZENOBIA ISSAN110/10/23 1650 Geena Blackmon.RESULTS READ BACK BY SAME. Performed By: #### L 300.8000 ####[facility] [address] [place], [address] D-dimer measurement for deep venous thrombosisOrdered By: Kemi Velez on 08-09-2024 D-Dimer Quantitative (PE/DVT) 1.22 FEU/ug/m High 0.27-0.49 [facility] Comment on above: D-Dimer ELEVATED (>0 .49): Additional studies and clinicalassessments are indicated to conclude diagnosis of:Deep Vein Thrombosis (DVT) or Pulmonary Embolism (PE)CRITICAL VALUE CALLED TO ZENOBIA ISSAN110/10/23 1650 Geena Blackmon.RESULTS READ BACK BY SAME. Emergency Department Summary on 08-09-2024 Emergency Department Summary Normal [facility] Eosinophil percentageOrdered By: Kemi Velez on 08-09-2024 Eosinophils/100 WBC (Bld) 13.3 % High 0-5 [facility] Epithelial cells.squamous LM Ql (Urine sed)Ordered By: Julián Schrader on 08-09-2024 Epithelial cells.squamous LM.HPF (Urine sed) [#/Area] 0 /[HPF] 5-10 [facility] Erythrocyte distribution wid th ratioOrdered By: Kemi Velez on 08-09-2024 Erythrocyte distribution width (RBC) [Ratio] 13.6 % 11.6-14.6 [facility] Erythrocyte distribution wid th standard deviationOrdered By: Kemi Velez on 08-09-2024 Erythrocyte distribution width (RBC) [Entitic vol] 41.8 fL 35.1-43.9 [facility] Estimated glomerular filtrat ion rate (GFR) AmericanOrdered By: Kemi Velez on 08-09-2024 Estimated GFR (MDRD) Amer 153 mL/min >60 [facility] Comment on above: GFR Calc Estimation of creatinine taryn aranceOrdered By: Kemi Velez on 08-09-2024 Estimated Creatinine Clearance Calc 122.78 ml/min [facility] Glomerular filtration rate ( GFR) estimationOrdered By: Kemi Velez on 08-09-2024 Estimated GFR (MDRD) Non-Af Amer 126 mL/min >60 [facility] Comment on above: Non- GFR Calc Glucose Ql (U)Ordered By: Sebastian Schrader on 08-09-2024 Urine Glucose (UA) Normal mg/dl Normal [facility] Glucose measurementOrdered B y: Kemi Velez on 08-09-2024 Glucose [Mass/Vol] 109 mg/dL High 74-106 [facility] Comment on above: Fasting Glucose resu lt from 100 to 125 mg/dL suggests IMPAIRED HOMEOSTASIS per A.D.A. criteria. Hematocrit Auto (Bld) [Volum e fraction]Ordered By: Kemi Velez on 08-09-2024 Hematocrit (Bld) [Volume fraction] 34.9 % Low 37-47 [facility] Hemoglobin measurementOrdere d By: Kemi Velez on 08-09-2024 Hemoglobin (Bld) [Mass/Vol] 11.9 g/dL Low 12.0-15.0 [facility] Immature granulocytes/100 WB C Auto (Bld)Ordered By: Kemi Velez on 08-09-2024 Immature granulocytes/100 WBC (Bld) 0.600 % 0.0-0.9 [facility] Comment on above: IG% - Immature Granu locytes (promyelocytes, myelocytes and metamyelocytes) > 1% indicates that a LEFT SHIFT is Present. Influenza virus A and B and SARS-CoV-2 (COVID-19) and Respiratory syncytial virus RNAOrdered By: Kemi Velez on 08-09-2024 SARS-CoV-2 (COVID-19) RNA NICOLE+probe Ql (Unsp spec) [facility] Ketones Test strip Ql (U)Ord ered By: Julián Schrader on 08-09-2024 Ketones Ql (U) Negative Negative [facility] L501.4020on 08-09-2024 TROPONIN-I HS 4 pg/mL Normal 3.0-54.0 [facility] Comment on above: Order Comment: 'TROP ' Serial specimen #1, #2 or #3: 1 Result Comment: Plemerari liu Note: New Test Units and Gender Specific Reference Ranges. For more information see Policy Stat Procedure [place] High Sensitivity Troponin (TNIH) and attachments. Performed By: #### L 501.4020, L500.2500, L100.0100 ####[facility] [address] [place], [address] Lymphocytes Auto (Unsp spec) [#/Vol]Ordered By: Kemi Velez on 08-09-2024 Lymphocytes (Bld) [#/Vol] 3.06 10*3/uL 0.83-4.51 [facility] Lymphocytes/100 WBC Auto (Un sp spec)Ordered By: Kemi Velez on 08-09-2024 Lymphocytes/100 WBC (Bld) 25.9 % 19-41 [facility] M100.678on 08-09-2024 M100.678 Pending SARS-CoV-2 (COVID 19) Negative INFLUENZA A Negative INFLUENZA B Negative RSV PCR Negative Normal [facility] Comment on above: Performed By: #### M 100.678 ####[facility] [address] [place], [address] MCV (mean corpuscular volume ) determinationOrdered By: Kemi Velez on 08-09-2024 MCV (RBC) [Entitic vol] 84.9 fL 81-99 [facility] Mean corpuscular hemoglobin (MCH) determinationOrdered By: Kemi Velez on 08-09-2024 MCH (RBC) [Entitic mass] 29.0 pg 27.0-32.0 [facility] Mean corpuscular hemoglobin concentration (MCHC) determinationOrdered By: Kemi Velez on 08-09-2024 MCHC (RBC) [Mass/Vol] 34.1 g/dL 32-36 [facility] Mean platelet volume determi nationOrdered By: Kemi Velez on 08-09-2024 Platelet mean volume (Bld) [Entitic vol] 9.8 fL 6.2-12.0 [facility] Microscopic analysis of urin e for red blood cells (RBC)Ordered By: Julián Schrader on 08-09-2024 Urine RBC 0 SEEN /hpf 0-5 [facility] Monocyte percentageOrdered B y: Kemi Velez on 08-09-2024 Monocytes/100 WBC (Bld) 6.5 % 0-10 [facility] Mucus LM Ql (Urine sed)Order ed By: Julián Schrader on 08-09-2024 Mucus Ql (Urine sed) 0 SEEN /hpf [facility] Neutrophil percentageOrdered By: Kemi Velez on 08-09-2024 Neutrophils/100 WBC (Bld) 53.3 % 47-70 [facility] Nitrite Test strip Ql (U)Ord ered By: Julián Schrader on 08-09-2024 Nitrite Ql (U) Negative Negative [facility] Nucleated red blood cell per centageOrdered By: Kemi Velez on 08-09-2024 Nucleated RBC/100 WBC (Bld) [Ratio] 0 % 0-5 [facility] Platelet countOrdered By: Kaylynn Velez on 08-09-2024 Platelets (Bld) [#/Vol] 353 10*3/uL 150-450 [facility] Potassium measurementOrdered By: Kemi Velez on 08-09-2024 Potassium [Moles/Vol] 3.5 mmol/L 3.5-5.1 [facility] Protein Test strip Ql (U)Ord ered By: Julián Schrader on 08-09-2024 Protein Ql (U) 15 mg/dl High Negative [facility] RBC Auto (Bld) [#/Vol]Ordere d By: Kemi Velez on 08-09-2024 RBC (Bld) [#/Vol] 4.11 10*6/uL Low 4.2-5.4 [facility] Serum anion gap measurementO rdered By: Kemi Velez on 08-09-2024 Anion gap [Moles/Vol] 9 mmol/L 5-15 [facility] Serum or plasma calcium pradip urement (mass/volume)Ordered By: Kemi Velez on 08-09-2024 Calcium [Mass/Vol] 9.2 mg/dL 8.5-10.1 [facility] Serum or plasma creatinine m easurement (mass/volume)Ordered By: Kemi Velez on 08-09-2024 Creatinine [Mass/Vol] 0.52 mg/dL Low 0.55-1.02 [facility] Comment on above: The validity of the calculated GFR & GFRAA in patients over 70 years has not been determined. Clinical correlation is essential. Serum or plasma urea nitroge n measurement (mass/volume)Ordered By: Kemi Velez on 08-09-2024 Urea nitrogen [Mass/Vol] 11 mg/dL 7-18 [facility] Sodium levelOrdered By: Daniel eastonseun Velez on 08-09-2024 Sodium [Moles/Vol] 140 mmol/L 136-145 [facility] Troponin IOrdered By: Deirdre Velez on 08-09-2024 Troponin I High Sensitivity 4 pg/mL 3.0-54.0 [facility] Comment on above: Please Note: New Evelyn t Units and Gender Specific Reference Ranges. For more information see Policy Stat Procedure [place] High Sensitivity Troponin (TNIH) and attachments. Urinalysis, Completeon 08-09 EPI,SQUAMOUS 0-5 SEEN Normal 5-10 [facility] Comment on above: Order Comment: ISHMAEL CTOR TO SPECIFY Performed By: #### L 400.0001 ####[facility] [address] [place], [address] BACTERIA 0 SEEN Normal None Seen [facility] Comment on above: Order Comment: ISHMAEL CTOR TO SPECIFY Performed By: #### L 400.0001 ####[facility] [address] [place], [address] Mucus Ql (Urine sed) 0 SEEN Normal [facility] Comment on above: Order Comment: ISHMAEL CTOR TO SPECIFY Performed By: #### L 400.0001 ####[facility] [address] [place], [address] RBC 0 SEEN Normal 0-5 [facility] Comment on above: Order Comment: ISHMAEL CTOR TO SPECIFY Performed By: #### L 400.0001 ####[facility] [address] [place], [address] WBC 0 SEEN Normal 0-5 [facility] Comment on above: Order Comment: ISHMAEL CTOR TO SPECIFY Performed By: #### L 400.0001 ####[facility] [address] [place], [address] Urine blood detectionOrdered By: Julián Schrader on 08-09-2024 Urine Occult Blood Negative Negative [facility] Urine clarityOrdered By: Ramón Schrader on 08-09-2024 Clarity (U) Clear Clear [facility] Urine color determinationOrd ered By: Julián Schrader on 08-09-2024 Color (U) Yellow Yellow [facility] Urine leukocyte esterase det ection by dipstickOrdered By: Julián Schrader on 08-09-2024 Leukocyte esterase Test strip Ql (U) Negative Negative [facility] Urine pHOrdered By: Julián Connors on 08-09-2024 pH (U) 6.0 [pH] 5.0 - 8.0 [facility] Urine sediment bacteria coun t by microscopy (number/high power field)Ordered By: Julián Schrader on 08-09-2024 Bacteria LM.HPF (Urine sed) [#/Area] 0 /[HPF] None Seen [facility] Urine specific gravity measu rementOrdered By: Julián Schrader on 08-09-2024 Specific gravity (U) [Rel density] 1.010 1.002-1.030 [facility] Urobilinogen Ql (U)Ordered B y: Julián Schrader on 08-09-2024 Urine Urobilinogen Normal mg/dl Normal [facility] White blood cell (WBC) count Ordered By: Kemi Velez on 08-09-2024 WBC (Bld) [#/Vol] 11.8 10*3/uL High 4.4-11.0 [facility] White blood cell countOrdere d By: Julián Schrader on 08-09-2024 Urine WBC 0 SEEN /hpf 0-5 [facility] CNPTOUTREACHon 08-07-2024 CNPTOUTREACH Normal [facility] Culture, Blood (WB)on 2023 CUB Blood cultures x2, f rom two different sites No growth in 5 days. Normal [facility] Comment on above: Performed By: #### M 200.1000 ####[facility] [address] [place], [address] Abdomen/Pelvis W IV Cont ONL Yon 08-05-2024 Abdomen/Pelvis W IV Cont ONLY Normal [facility] Absolute neutrophil countOrd ered By: Lissette Guerin on 08-05-2024 Neutrophils (Bld) [#/Vol] 7.1 10*3/uL 2.0-7.7 [facility] Albumin to globulin ratioOrd ered By: Lissette Guerin on 08-05-2024 Albumin/Globulin [Mass ratio] 0.9 {ratio} 0.9-2.4 [facility] Basophil percentageOrdered B y: Lissette Guerin on 08-05-2024 Basophils/100 WBC (Bld) 0.4 % 0-1 [facility] Bedside Glucoseon 08-05-2024 FINGERSTICK GLU 189 mg/dL High 74-106 [facility] Comment on above: Result Comment: JAIME GEMENT OF PATIENT CARE PER NURSING PROTOCOL Performed By: #### L 501.080 ####[facility] [address] [place], [place], [address] FINGERSTICK GLU 154 mg/dL High 74-106 [facility] Comment on above: Result Comment: JAIME GEMENT OF PATIENT CARE PER NURSING PROTOCOL Performed By: #### L 501.080 ####[facility] [address] [place], [place], [address] Bilirubin Test strip Ql (U)O rdered By: Lissetteanand Guerin on 08-05-2024 Bilirubin Ql (U) Negative Negative [facility] Bilirubin, totalOrdered By: Lissette Apoorva on 08-05-2024 Bilirubin [Mass/Vol] 0.30 mg/dL 0.20-1.00 [facility] Comment on above: For patients on eltr ombopag therapy, use of Dimension [place] TBIL is not recommended. Blood urea nitrogen (BUN)/cr eatinine ratioOrdered By: Lissette Apoorva on 08-05-2024 Urea nitrogen/Creatinine [Mass ratio] 21.8 mg/mg High 10-20 [facility] CBC W/Diff, Automatedon 07-11 Absolute Lymph 3.21 X10 3/uL Normal 0.83-4.51 [facility] Comment on above: Performed By: #### L 500.4050, L501.4020, L503.6005, L100.0100 ####[facility] [address] [place], [address] Absolute Neut 7.1 X10 3/uL Normal 2.0-7.7 [facility] Comment on above: Performed By: #### L 500.4050, L501.4020, L503.6005, L100.0100 ####[facility] [address] [place], [address] Basophils/100 WBC (Bld) 0.4 % Normal 0-1 [facility] Comment on above: Performed By: #### L 500.4050, L501.4020, L503.6005, L100.0100 ####[facility] [address] [place], [address] Eosinophils/100 WBC (Bld) 5.5 % High 0-5 [facility] Comment on above: Performed By: #### L 500.4050, L501.4020, L503.6005, L100.0100 ####[facility] [address] [place], [address] Erythrocyte distribution width (RBC) [Ratio] 13.2 % Normal 11.6-14.6 [facility] Comment on above: Performed By: #### L 500.4050, L501.4020, L503.6005, L100.0100 ####[facility] [address] [place], [address] Hematocrit (Bld) [Volume fraction] 35.9 % Low 37-47 [facility] Comment on above: Performed By: #### L 500.4050, L501.4020, L503.6005, L100.0100 ####[facility] [address] [place], [address] Hemoglobin (Bld) [Mass/Vol] 12.6 g/dL Normal 12.0-15.0 [facility] Comment on above: Performed By: #### L 500.4050, L501.4020, L503.6005, L100.0100 ####[facility] [address] [place], [address] IG% 0.400 Normal 0.0-0.9 [facility] Comment on above: Result Comment: IG% - Immature Granulocytes (promyelocytes, myelocytes andmetamyelocytes) > 1% indicates that a LEFT SHIFT is Present. Performed By: #### L 500.4050, L501.4020, L503.6005, L100.0100 ####[facility] [address] [place], [address] Lymphocytes/100 WBC (Bld) 27.2 % Normal 19-41 [facility] Comment on above: Performed By: #### L 500.4050, L501.4020, L503.6005, L100.0100 ####[facility] [address] [place], [address] MCH (RBC) [Entitic mass] 29.6 pg Normal 27.0-32.0 [facility] Comment on above: Performed By: #### L 500.4050, L501.4020, L503.6005, L100.0100 ####[facility] [address] [place], [address] MCHC (RBC) [Mass/Vol] 35.1 g/dL Normal 32-36 [facility] Comment on above: Performed By: #### L 500.4050, L501.4020, L503.6005, L100.0100 ####[facility] [address] [place], [address] MCV (RBC) [Entitic vol] 84.5 fL Normal 81-99 [facility] Comment on above: Performed By: #### L 500.4050, L501.4020, L503.6005, L100.0100 ####[facility] [address] [place], [address] Monocytes/100 WBC (Bld) 6.4 % Normal 0-10 [facility] Comment on above: Performed By: #### L 500.4050, L501.4020, L503.6005, L100.0100 ####[facility] [address] [place], [address] Neutrophils/100 WBC (Bld) 60.1 % Normal 47-70 [facility] Comment on above: Performed By: #### L 500.4050, L501.4020, L503.6005, L100.0100 ####[facility] [address] [place], [address] Nucleated RBC (Bld) [#/Vol] 0 10*3/uL Normal 0-5 [facility] Comment on above: Performed By: #### L 500.4050, L501.4020, L503.6005, L100.0100 ####[facility] [address] [place], [address] Platelet mean volume (Bld) [Entitic vol] 10.2 fL Normal 6.2-12.0 [facility] Comment on above: Performed By: #### L 500.4050, L501.4020, L503.6005, L100.0100 ####[facility] [address] [place], [address] Platelets (Bld) [#/Vol] 288 10*3/uL Normal 150-450 [facility] Comment on above: Performed By: #### L 500.4050, L501.4020, L503.6005, L100.0100 ####[facility] [address] [place], [address] RBC (Bld) [#/Vol] 4.25 10*6/uL Normal 4.2-5.4 [facility] Comment on above: Performed By: #### L 500.4050, L501.4020, L503.6005, L100.0100 ####[facility] [address] [place], [address] RDW SD 40.8 fl Normal 35.1-43.9 [facility] Comment on above: Performed By: #### L 500.4050, L501.4020, L503.6005, L100.0100 ####[facility] [address] [place], [address] WBC (Bld) [#/Vol] 11.8 10*3/uL High 4.4-11.0 [facility] Comment on above: Performed By: #### L 500.4050, L501.4020, L503.6005, L100.0100 ####[facility] [address] [place], [address] CTA Chest W/WO Contraston CTA Chest W/WO Contrast Normal [facility] Carbon dioxide measurementOr dered By: Lissette Guerin on 08-05-2024 CO2 [Moles/Vol] 23.0 mmol/L 21.0-32.0 [facility] Chloride measurementOrdered By: Lissette Guerin on 08-05-2024 Chloride [Moles/Vol] 107 mmol/L 98-107 [facility] Comprehensive Metabolic Prof ilon 08-05-2024 Albumin [Mass/Vol] 3.3 g/dL Normal 3.2-5.0 [facility] Comment on above: Order Comment: 'TROP ' Serial specimen #1, #2 or #3: 1 Performed By: #### L 500.4050, L501.4020, L503.6005, L100.0100 ####[facility] [address] [place], [address] Albumin/Globulin [Mass ratio] 0.9 {ratio} Normal 0.9-2.4 [facility] Comment on above: Order Comment: 'TROP ' Serial specimen #1, #2 or #3: 1 Performed By: #### L 500.4050, L501.4020, L503.6005, L100.0100 ####[facility] [address] [place], [address] ALK P 60 U/L Normal 45-117 [facility] Comment on above: Order Comment: 'TROP ' Serial specimen #1, #2 or #3: 1 Performed By: #### L 500.4050, L501.4020, L503.6005, L100.0100 ####[facility] [address] [place], [address] ALT [Catalytic activity/Vol] 16 U/L Normal 13-56 [facility] Comment on above: Order Comment: 'TROP ' Serial specimen #1, #2 or #3: 1 Performed By: #### L 500.4050, L501.4020, L503.6005, L100.0100 ####[facility] [address] [place], [address] AST [Catalytic activity/Vol] 19 U/L Normal 15-37 [facility] Comment on above: Order Comment: 'TROP ' Serial specimen #1, #2 or #3: 1 Performed By: #### L 500.4050, L501.4020, L503.6005, L100.0100 ####[facility] [address] [place], [address] Bilirubin [Mass/Vol] 0.30 mg/dL Normal 0.20-1.00 [facility] Comment on above: Order Comment: 'TROP ' Serial specimen #1, #2 or #3: 1 Result Comment: For patients on eltrombopag therapy, use of Dimension [place] TBIL is not recommended. Performed By: #### L 500.4050, L501.4020, L503.6005, L100.0100 ####[facility] [address] [place], [address] BUN/CRE 21.8 RATIO High 10-20 [facility] Comment on above: Order Comment: 'TROP ' Serial specimen #1, #2 or #3: 1 Performed By: #### L 500.4050, L501.4020, L503.6005, L100.0100 ####[facility] [address] [place], [address] CA,Total 8.5 mg/dL Normal 8.5-10.1 [facility] Comment on above: Order Comment: 'TROP ' Serial specimen #1, #2 or #3: 1 Performed By: #### L 500.4050, L501.4020, L503.6005, L100.0100 ####[facility] [address] [place], [address] Chloride [Moles/Vol] 107 mmol/L Normal 98-107 [facility] Comment on above: Order Comment: 'TROP ' Serial specimen #1, #2 or #3: 1 Performed By: #### L 500.4050, L501.4020, L503.6005, L100.0100 ####[facility] [address] [place], [address] CO2 [Moles/Vol] 23.0 mmol/L Normal 21.0-32.0 [facility] Comment on above: Order Comment: 'TROP ' Serial specimen #1, #2 or #3: 1 Performed By: #### L 500.4050, L501.4020, L503.6005, L100.0100 ####[facility] [address] [place], [address] Creatinine [Mass/Vol] 0.60 mg/dL Normal 0.55-1.02 [facility] Comment on above: Order Comment: 'TROP ' Serial specimen #1, #2 or #3: 1 Result Comment: The validity of the calculated GFR GFRAA in patients over70 years has not been determined. Clinical correlation isessential. Performed By: #### L 500.4050, L501.4020, L503.6005, L100.0100 ####[facility] [address] [place], [address] ECRCL 103.39 ml/min Normal [facility] Comment on above: Order Comment: 'TROP ' Serial specimen #1, #2 or #3: 1 Performed By: #### L 500.4050, L501.4020, L503.6005, L100.0100 ####[facility] [address] [place], [address] EST GFR - AA 130 mL/min Normal >60 [facility] Comment on above: Order Comment: 'TROP ' Serial specimen #1, #2 or #3: 1 Result Comment: Afri can [place] GFR Calc Performed By: #### L 500.4050, L501.4020, L503.6005, L100.0100 ####[facility] [address] [place], [address] GAP 8 Normal 5-15 [facility] Comment on above: Order Comment: 'TROP ' Serial specimen #1, #2 or #3: 1 Performed By: #### L 500.4050, L501.4020, L503.6005, L100.0100 ####[facility] [address] [place], [address] GFR/1.73 sq M.predicted among non-blacks MDRD (S/P/Bld) [Vol rate/Area] 108 mL/min/{1.73_m2} Normal >60 [facility] Comment on above: Order Comment: 'TROP ' Serial specimen #1, #2 or #3: 1 Result Comment: Non- GFR Calc Performed By: #### L 500.4050, L501.4020, L503.6005, L100.0100 ####[facility] [address] [place], [address] Globulin (S) [Mass/Vol] 3.7 g/dL Normal 2.2-4.2 [facility] Comment on above: Order Comment: 'TROP ' Serial specimen #1, #2 or #3: 1 Performed By: #### L 500.4050, L501.4020, L503.6005, L100.0100 ####[facility] [address] [place], [address] Glucose [Mass/Vol] 146 mg/dL High 74-106 [facility] Comment on above: Order Comment: 'TROP ' Serial specimen #1, #2 or #3: 1 Result Comment: Fast ing Glucose result greater than or equal to 126 mg/dLsuggests DIABETES MELLITUS per A.D.A. criteria. Performed By: #### L 500.4050, L501.4020, L503.6005, L100.0100 ####[facility] [address] [place], [address] Potassium [Moles/Vol] 3.3 mmol/L Low 3.5-5.1 [facility] Comment on above: Order Comment: 'TROP ' Serial specimen #1, #2 or #3: 1 Performed By: #### L 500.4050, L501.4020, L503.6005, L100.0100 ####[facility] [address] [place], [address] Sodium [Moles/Vol] 138 mmol/L Normal 136-145 [facility] Comment on above: Order Comment: 'TROP ' Serial specimen #1, #2 or #3: 1 Performed By: #### L 500.4050, L501.4020, L503.6005, L100.0100 ####[facility] [address] [place], [address] T PROT 7.0 g/dL Normal 6.4-8.2 [facility] Comment on above: Order Comment: 'TROP ' Serial specimen #1, #2 or #3: 1 Performed By: #### L 500.4050, L501.4020, L503.6005, L100.0100 ####[facility] [address] [place], [address] Urea nitrogen [Mass/Vol] 13 mg/dL Normal 7-18 [facility] Comment on above: Order Comment: 'TROP ' Serial specimen #1, #2 or #3: 1 Performed By: #### L 500.4050, L501.4020, L503.6005, L100.0100 ####[facility] [address] [place], [place], [address] Discharge Instructionon 07-11 Discharge Instruction Normal [facility] Emergency Department Summary on 08-05-2024 Emergency Department Summary Normal [facility] Eosinophil percentageOrdered By: Lissette Guerin on 08-05-2024 Eosinophils/100 WBC (Bld) 5.5 % High 0-5 [facility] Epithelial cells.squamous LM Ql (Urine sed)Ordered By: Lissette Guerin on 08-05-2024 Epithelial cells.squamous LM.HPF (Urine sed) [#/Area] 0 /[HPF] 5-10 [facility] Erythrocyte distribution wid th ratioOrdered By: Lissette Guerin on 08-05-2024 Erythrocyte distribution width (RBC) [Ratio] 13.2 % 11.6-14.6 [facility] Erythrocyte distribution wid th standard deviationOrdered By: Lissette Guerin on 08-05-2024 Erythrocyte distribution width (RBC) [Entitic vol] 40.8 fL 35.1-43.9 [facility] Estimated glomerular filtrat ion rate (GFR) AmericanOrdered By: Lissette Guerin on 08-05-2024 Estimated GFR (MDRD) Amer 130 mL/min >60 [facility] Comment on above: GFR Calc Estimation of creatinine taryn aranceOrdered By: Lissette Guerin on 08-05-2024 Estimated Creatinine Clearance Calc 103.39 ml/min [facility] Glomerular filtration rate ( GFR) estimationOrdered By: Lissette Guerin on 08-05-2024 Estimated GFR (MDRD) Non-Af Amer 108 mL/min >60 [facility] Comment on above: Non- GFR Calc Glucose Ql (U)Ordered By: Fadi Guerin on 08-05-2024 Urine Glucose (UA) Normal mg/dl Normal [facility] Glucose measurementOrdered B y: Lissette Guerin on 08-05-2024 Glucose [Mass/Vol] 146 mg/dL High 74-106 [facility] Comment on above: Fasting Glucose resu lt greater than or equal to 126 mg/dL suggests DIABETES MELLITUS per A.D.A. criteria. [facility] deOrdered By: Neal Dunaway on 08-05-2024 Bedside Glucose (Misc Panel) 189 mg/dL High 74-106 [facility] Comment on above: MANAGEMENT OF PATIEN T CARE PER NURSING PROTOCOL Hematocrit Auto (Bld) [Volum e fraction]Ordered By: Lissette Guerin on 08-05-2024 Hematocrit (Bld) [Volume fraction] 35.9 % Low 37-47 [facility] Hemoglobin measurementOrdere d By: Lissette Guerin on 08-05-2024 Hemoglobin (Bld) [Mass/Vol] 12.6 g/dL 12.0-15.0 [facility] Immature granulocytes/100 WB C Auto (Bld)Ordered By: Lissette Guerin on 08-05-2024 Immature granulocytes/100 WBC (Bld) 0.400 % 0.0-0.9 [facility] Comment on above: IG% - Immature Granu locytes (promyelocytes, myelocytes and metamyelocytes) > 1% indicates that a LEFT SHIFT is Present. Ketones Test strip Ql (U)Ord ered By: Lissette Guerin on 08-05-2024 Ketones Ql (U) Negative Negative [facility] L501.4020on 08-05-2024 TROPONIN-I HS 3 pg/mL Normal 3.0-54.0 [facility] Comment on above: Order Comment: 'TROP ' Serial specimen #1, #2 or #3: 1 Result Comment: Melissa liu Note: New Test Units and Gender Specific Reference Ranges. For more information see Policy Stat Procedure [place] High Sensitivity Troponin (TNIH) and attachments. Performed By: #### L 500.4050, L501.4020, L503.6005, L100.0100 ####[facility] [address] [place], [address] Laboratory - Chemistry and C hemistry - challengeOrdered By: Lissette Guerin on 08-05-2024 AST [Catalytic activity/Vol] 19 U/L 15-37 [facility] Lactic Acidon 08-05-2024 Lactate [Moles/Vol] 0.9 mmol/L Normal 0.4-1.9 [facility] Comment on above: Order Comment: Y Performed By: #### L 500.4050, L501.4020, L503.6005, L100.0100 ####[facility] [address] [place], [place], [id number] Lactic acid measurementOrder ed By: Lissette Guerin on 08-05-2024 Lactate [Moles/Vol] 0.9 mmol/L 0.4-2.0 [facility] Lymphocytes Auto (Unsp spec) [#/Vol]Ordered By: Lissette Guerin on 08-05-2024 Lymphocytes (Bld) [#/Vol] 3.21 10*3/uL 0.83-4.51 [facility] Lymphocytes/100 WBC Auto (Un sp spec)Ordered By: Lissette Guerin on 08-05-2024 Lymphocytes/100 WBC (Bld) 27.2 % 19-41 [facility] MCV (mean corpuscular volume ) determinationOrdered By: Lissette Guerin on 08-05-2024 MCV (RBC) [Entitic vol] 84.5 fL 81-99 [facility] Mean corpuscular hemoglobin (MCH) determinationOrdered By: Lissette Guerin on 08-05-2024 MCH (RBC) [Entitic mass] 29.6 pg 27.0-32.0 [facility] Mean corpuscular hemoglobin concentration (MCHC) determinationOrdered By: Lissette Guerin on 08-05-2024 MCHC (RBC) [Mass/Vol] 35.1 g/dL 32-36 [facility] Mean platelet volume determi nationOrdered By: Lissette Guerin on 08-05-2024 Platelet mean volume (Bld) [Entitic vol] 10.2 fL 6.2-12.0 [facility] Microscopic analysis of urin e for red blood cells (RBC)Ordered By: Lissette Guerin on 08-05-2024 Urine RBC 0-5 SEEN /hpf 0-5 [facility] Monocyte percentageOrdered B y: Lissette Guerin on 08-05-2024 Monocytes/100 WBC (Bld) 6.4 % 0-10 [facility] Mucus LM Ql (Urine sed)Order ed By: Lissette Guerin on 08-05-2024 Mucus Ql (Urine sed) RARE /hpf [facility] Neutrophil percentageOrdered By: Lissette Guerin on 08-05-2024 Neutrophils/100 WBC (Bld) 60.1 % 47-70 [facility] Nitrite Test strip Ql (U)Ord ered By: Lissette Guerin on 08-05-2024 Nitrite Ql (U) Negative Negative [facility] Nucleated red blood cell per centageOrdered By: Lissette Guerin on 08-05-2024 Nucleated RBC/100 WBC (Bld) [Ratio] 0 % 0-5 [facility] Platelet countOrdered By: Fadi Guerin on 08-05-2024 Platelets (Bld) [#/Vol] 288 10*3/uL 150-450 [facility] Potassium measurementOrdered By: Lissette Guerin on 08-05-2024 Potassium [Moles/Vol] 3.3 mmol/L Low 3.5-5.1 [facility] Protein Test strip Ql (U)Ord ered By: Lissette Guerin on 08-05-2024 Protein Ql (U) 15 mg/dl High Negative [facility] RBC Auto (Bld) [#/Vol]Ordere d By: Lissette Guerin on 08-05-2024 RBC (Bld) [#/Vol] 4.25 10*6/uL 4.2-5.4 [facility] Respiratory Cultureon 2023 RESPC List Antibiotics [place] t 48 Hours? macrobid List Antibiotics to be Started? none Mixed normal respiratory bill. No Haemophilus, Streptococcus pneumoniae, beta-hemolytic Streptococcus or Staphylococcus aureus isolated. Normal [facility] Comment on above: Performed By: #### M 100.2400, M100.1999 ####[facility] [address] [place], [address] Serum anion gap measurementO rdered By: Lissette Guerin on 08-05-2024 Anion gap [Moles/Vol] 8 mmol/L 5-15 [facility] [facility] Serum globulin measurementOr dered By: Lissette Guerin on 08-05-2024 Globulin (S) [Mass/Vol] 3.7 g/dL 2.2-4.2 [facility] Serum or plasma alanine ji otransferase (ALT) measurementOrdered By: Lissette Guerin on 08-05-2024 ALT [Catalytic activity/Vol] 16 U/L 13-56 [facility] Serum or plasma albumin pradip urement (mass/volume)Ordered By: Lissette Guerin on 08-05-2024 Albumin [Mass/Vol] 3.3 g/dL 3.2-5.0 [facility] Serum or plasma alkaline dolly sphatase measurementOrdered By: Lissette Guerin on 08-05-2024 ALP [Catalytic activity/Vol] 60 U/L 45-117 [facility] Serum or plasma calcium pradip urement (mass/volume)Ordered By: Lissette Guerin on 08-05-2024 Calcium [Mass/Vol] 8.5 mg/dL 8.5-10.1 [facility] Serum or plasma creatinine m easurement (mass/volume)Ordered By: Lissette Guerin on 08-05-2024 Creatinine [Mass/Vol] 0.60 mg/dL 0.55-1.02 [facility] Comment on above: The validity of the calculated GFR & GFRAA in patients over 70 years has not been determined. Clinical correlation is essential. Serum or plasma urea nitroge n measurement (mass/volume)Ordered By: Lissette Guerin on 08-05-2024 Urea nitrogen [Mass/Vol] 13 mg/dL 7-18 [facility] Sodium levelOrdered By: Nick Guerin on 08-05-2024 Sodium [Moles/Vol] 138 mmol/L 136-145 [facility] Total proteinOrdered By: Angela stewarty Apoorva on 08-05-2024 Protein [Mass/Vol] 7.0 g/dL 6.4-8.2 [facility] Troponin IOrdered By: Lissette Guerin on 08-05-2024 Troponin I High Sensitivity 3 pg/mL 3.0-54.0 [facility] Comment on above: Please Note: New Evelyn t Units and Gender Specific Reference Ranges. For more information see Policy Stat Procedure [place] High Sensitivity Troponin (TNIH) and attachments. Urinalysis, Completeon 08-05 Mucus Ql (Urine sed) RARE Normal [facility] Comment on above: Order Comment: CLEAN CATCH Performed By: #### L 400.0001 ####[facility] [address] [place], [address] EPI,SQUAMOUS 0-5 SEEN Normal 5-10 [facility] Comment on above: Order Comment: CLEAN CATCH Performed By: #### L 400.0001 ####[facility] [address] [place], [address] RBC 0-5 SEEN Normal 0-5 [facility] Comment on above: Order Comment: CLEAN CATCH Performed By: #### L 400.0001 ####[facility] [address] [place], [address] BACTERIA 0 SEEN Normal None Seen [facility] Comment on above: Order Comment: CLEAN CATCH Performed By: #### L 400.0001 ####[facility] [address] [place], [address] WBC 0 SEEN Normal 0-5 [facility] Comment on above: Order Comment: CLEAN CATCH Performed By: #### L 400.0001 ####[facility] [address] [place], [address] Urine blood detectionOrdered By: Lissette Guerin on 08-05-2024 Urine Occult Blood 25 /ul High Negative [facility] Urine clarityOrdered By: Angela Guerin on 08-05-2024 Clarity (U) Clear Clear [facility] Urine color determinationOrd ered By: Lissette Guerin on 08-05-2024 Color (U) Yellow Yellow [facility] Urine leukocyte esterase det ection by dipstickOrdered By: Lissette Guerin on 08-05-2024 Leukocyte esterase Test strip Ql (U) Negative Negative [facility] Urine pHOrdered By: Lissette chew on 08-05-2024 pH (U) 6.0 [pH] 5.0 - 8.0 [facility] Urine sediment bacteria coun t by microscopy (number/high power field)Ordered By: Lissette Guerin on 08-05-2024 Bacteria LM.HPF (Urine sed) [#/Area] 0 /[HPF] None Seen [facility] Urine specific gravity measu rementOrdered By: Lissette Guerin on 08-05-2024 Specific gravity (U) [Rel density] 1.015 1.002-1.030 [facility] Urobilinogen Ql (U)Ordered B y: iLssette Guerin on 08-05-2024 Urobilinogen (U) [Mass/Vol] 1 mg/dL High Normal [facility] White blood cell (WBC) count Ordered By: Lissette Guerin on 08-05-2024 WBC (Bld) [#/Vol] 11.8 10*3/uL High 4.4-11.0 [facility] White blood cell countOrdere d By: Lissette Guerin on 08-05-2024 Urine WBC 0 SEEN /hpf 0-5 [facility] Absolute neutrophil countOrd ered By: Neal Dunaway on 08-04-2024 Neutrophils (Bld) [#/Vol] 2.7 10*3/uL 2.0-7.7 [facility] Basic Metabolic Profile (BMP )on 08-04-2024 BUN/CRE 16.0 RATIO Normal 10-20 [facility] Comment on above: Performed By: #### L 500.2500, L100.0100 ####[facility] [address] [place], [address] CA,Total 8.3 mg/dL Low 8.5-10.1 [facility] Comment on above: Performed By: #### L 500.2500, L100.0100 ####[facility] [address] [place], [address] Chloride [Moles/Vol] 112 mmol/L High 98-107 [facility] Comment on above: Performed By: #### L 500.2500, L100.0100 ####[facility] [address] [place], [address] CO2 [Moles/Vol] 23.0 mmol/L Normal 21.0-32.0 [facility] Comment on above: Performed By: #### L 500.2500, L100.0100 ####[facility] [address] [place], [address] Creatinine [Mass/Vol] 0.50 mg/dL Low 0.55-1.02 [facility] Comment on above: Result Comment: The validity of the calculated GFR GFRAA in patients over70 years has not been determined. Clinical correlation isessential. Performed By: #### L 500.2500, L100.0100 ####[facility] [address] [place], [address] ECRCL 130.24 ml/min Normal [facility] Comment on above: Performed By: #### L 500.2500, L100.0100 ####[facility] [address] [place], [address] EST GFR - AA 159 mL/min Normal >60 [facility] Comment on above: Result Comment: Afri can [place] GFR Calc Performed By: #### L 500.2500, L100.0100 ####[facility] [address] [place], [address] GAP 5 Normal 5-15 [facility] Comment on above: Performed By: #### L 500.2500, L100.0100 ####[facility] [address] [place], [address] GFR/1.73 sq M.predicted among non-blacks MDRD (S/P/Bld) [Vol rate/Area] 132 mL/min/{1.73_m2} Normal >60 [facility] Comment on above: Result Comment: Non- GFR Calc Performed By: #### L 500.2500, L100.0100 ####[facility] [address] [place], [address] Glucose [Mass/Vol] 164 mg/dL High 74-106 [facility] Comment on above: Result Comment: Fast ing Glucose result greater than or equal to 126 mg/dLsuggests DIABETES MELLITUS per A.D.A. criteria. Performed By: #### L 500.2500, L100.0100 ####[facility] [address] [place], [address] Potassium [Moles/Vol] 3.6 mmol/L Normal 3.5-5.1 [facility] Comment on above: Performed By: #### L 500.2500, L100.0100 ####[facility] [address] [place], [address] Sodium [Moles/Vol] 140 mmol/L Normal 136-145 [facility] Comment on above: Performed By: #### L 500.2500, L100.0100 ####[facility] [address] [place], [address] Urea nitrogen [Mass/Vol] 8 mg/dL Normal 7-18 [facility] Comment on above: Performed By: #### L 500.2500, L100.0100 ####[facility] [address] [place], [address] Basophil percentageOrdered B y: Neal Dunaway on 08-04-2024 Basophils/100 WBC (Bld) 0.3 % 0-1 [facility] Bedside Glucoseon 08-04-2024 FINGERSTICK GLU 157 mg/dL High 74-106 [facility] Comment on above: Result Comment: JAIME GEMENT OF PATIENT CARE PER NURSING PROTOCOL Performed By: #### L 501.080 ####[facility] [address] [place], [address] FINGERSTICK GLU 151 mg/dL High 74-106 [facility] Comment on above: Result Comment: JAIME GEMENT OF PATIENT CARE PER NURSING PROTOCOL Performed By: #### L 501.080 ####[facility] [address] [place], [address] FINGERSTICK GLU 207 mg/dL High 74-106 [facility] Comment on above: Result Comment: JAIME GEMENT OF PATIENT CARE PER NURSING PROTOCOL Performed By: #### L 501.080 ####[facility] [address] [place], [address] FINGERSTICK GLU 142 mg/dL [facility]106 [facility] Comment on above: Result Comment: JAIME GEMENT OF PATIENT CARE PER NURSING PROTOCOL Performed By: #### L 501.080 ####[facility] [address] [place], [address] Blood urea nitrogen (BUN)/cr eatinine ratioOrdered By: Neal Dunaway on 08-04-2024 Urea nitrogen/Creatinine [Mass ratio] 16.0 mg/mg - [facility] CBC W/Diff, Automatedon 07-11 Absolute Lymph 2.71 X10 3/uL Normal 0.83-4.51 [facility] Comment on above: Performed By: #### L 500.2500, L100.0100 ####[facility] [address] [place], [address] Absolute Neut 2.7 X10 3/uL Normal 2.0-7.7 [facility] Comment on above: Performed By: #### L 500.2500, L100.0100 ####[facility] [address] [place], [address] Basophils/100 WBC (Bld) 0.3 % Normal 0-1 [facility] Comment on above: Performed By: #### L 500.2500, L100.0100 ####[facility] [address] [place], [address] Eosinophils/100 WBC (Bld) 5.9 % High 0-5 [facility] Comment on above: Performed By: #### L 500.2500, L100.0100 ####[facility] [address] [place], [address] Erythrocyte distribution width (RBC) [Ratio] 13.2 % Normal 11.6-14.6 [facility] Comment on above: Performed By: #### L 500.2500, L100.0100 ####[facility] [address] [place], [address] Hematocrit (Bld) [Volume fraction] 36.0 % Low 37-47 [facility] Comment on above: Performed By: #### L 500.2500, L100.0100 ####[facility] [address] [place], [address] Hemoglobin (Bld) [Mass/Vol] 12.3 g/dL Normal 12.0-15.0 [facility] Comment on above: Performed By: #### L 500.2500, L100.0100 ####[facility] [address] [place], [address] IG% 0.300 Normal 0.0-0.9 [facility] Comment on above: Result Comment: IG% - Immature Granulocytes (promyelocytes, myelocytes andmetamyelocytes) > 1% indicates that a LEFT SHIFT is Present. Performed By: #### L 500.2500, L100.0100 ####[facility] [address] [place], [address] Lymphocytes/100 WBC (Bld) 43.6 % High 19-41 [facility] Comment on above: Performed By: #### L 500.2500, L100.0100 ####[facility] [address] [place], [address] MCH (RBC) [Entitic mass] 29.3 pg Normal 27.0-32.0 [facility] Comment on above: Performed By: #### L 500.2500, L100.0100 ####[facility] [address] [place], [address] MCHC (RBC) [Mass/Vol] 34.2 g/dL Normal 32-36 [facility] Comment on above: Performed By: #### L 500.2500, L100.0100 ####[facility] [address] [place], [address] MCV (RBC) [Entitic vol] 85.7 fL Normal 81-99 [facility] Comment on above: Performed By: #### L 500.2500, L100.0100 ####[facility] [address] [place], [address] Monocytes/100 WBC (Bld) 6.3 % Normal 0-10 [facility] Comment on above: Performed By: #### L 500.2500, L100.0100 ####[facility] [address] [place], [address] Neutrophils/100 WBC (Bld) 43.6 % Low 47-70 [facility] Comment on above: Performed By: #### L 500.2500, L100.0100 ####[facility] [address] [place], [address] Nucleated RBC (Bld) [#/Vol] 0 10*3/uL Normal 0-5 [facility] Comment on above: Performed By: #### L 500.2500, L100.0100 ####[facility] [address] [place], [address] Platelet mean volume (Bld) [Entitic vol] 10.4 fL Normal 6.2-12.0 [facility] Comment on above: Performed By: #### L 500.2500, L100.0100 ####[facility] [address] [place], [address] Platelets (Bld) [#/Vol] 251 10*3/uL Normal 150-450 [facility] Comment on above: Performed By: #### L 500.2500, L100.0100 ####[facility] [address] [place], [address] RBC (Bld) [#/Vol] 4.20 10*6/uL Normal 4.2-5.4 [facility] Comment on above: Performed By: #### L 500.2500, L100.0100 ####[facility] [address] [place], [address] RDW SD 41.1 fl Normal 35.1-43.9 [facility] Comment on above: Performed By: #### L 500.2500, L100.0100 ####[facility] [address] [place], [address] WBC (Bld) [#/Vol] 6.2 10*3/uL Normal 4.4-11.0 [facility] Comment on above: Performed By: #### L 500.2500, L100.0100 ####[facility] [address] [place], [address] CNPNon 08-04-2024 CNPN Normal [facility] Carbon dioxide measurementOr dered By: Neal Dunaway on 08-04-2024 CO2 [Moles/Vol] 23.0 mmol/L 21.0-32.0 [facility] Chloride measurementOrdered By: Neal Dunaway on 08-04-2024 Chloride [Moles/Vol] 112 mmol/L High 98-107 [facility] Eosinophil percentageOrdered By: Neal Dunaway on 08-04-2024 Eosinophils/100 WBC (Bld) 5.9 % High 0-5 [facility] Erythrocyte distribution wid th ratioOrdered By: Neal Dunaway on 08-04-2024 Erythrocyte distribution width (RBC) [Ratio] 13.2 % 11.6-14.6 [facility] Erythrocyte distribution wid th standard deviationOrdered By: Neal Dunaway on 08-04-2024 Erythrocyte distribution width (RBC) [Entitic vol] 41.1 fL 35.1-43.9 [facility] Estimated glomerular filtrat ion rate (GFR) AmericanOrdered By: Neal Dunaway on 08-04-2024 Estimated GFR (MDRD) Amer 159 mL/min >60 [facility] Comment on above: GFR Calc Estimation of creatinine taryn aranceOrdered By: Neal Duanway on 08-04-2024 Estimated Creatinine Clearance Calc 130.24 ml/min [facility] Glomerular filtration rate ( GFR) estimationOrdered By: Neal Dunaway on 08-04-2024 Estimated GFR (MDRD) Non-Af Amer 132 mL/min >60 [facility] Comment on above: Non- GFR Calc Glucose measurementOrdered B y: Neal Dunaway on 08-04-2024 Glucose [Mass/Vol] 164 mg/dL High 74-106 [facility] Comment on above: Fasting Glucose resu lt greater than or equal to 126 mg/dL suggests DIABETES MELLITUS per A.D.A. criteria. Hematocrit Auto (Bld) [Volum e fraction]Ordered By: Neal Dunaway on 08-04-2024 Hematocrit (Bld) [Volume fraction] 36.0 % Low 37-47 [facility] Hemoglobin measurementOrdere d By: Neal Dunaway on 08-04-2024 Hemoglobin (Bld) [Mass/Vol] 12.3 g/dL 12.0-15.0 [facility] Immature granulocytes/100 WB C Auto (Bld)Ordered By: Neal Dunaway on 08-04-2024 Immature granulocytes/100 WBC (Bld) 0.300 % 0.0-0.9 [facility] Comment on above: IG% - Immature Granu locytes (promyelocytes, myelocytes and metamyelocytes) > 1% indicates that a LEFT SHIFT is Present. Lymphocytes Auto (Unsp spec) [#/Vol]Ordered By: Neal Dunaway on 08-04-2024 Lymphocytes (Bld) [#/Vol] 2.71 10*3/uL 0.83-4.51 [facility] Lymphocytes/100 WBC Auto (Un sp spec)Ordered By: Neal Dunaway on 08-04-2024 Lymphocytes/100 WBC (Bld) 43.6 % High 19-41 [facility] MCV (mean corpuscular volume ) determinationOrdered By: Neal Dunaway on 08-04-2024 MCV (RBC) [Entitic vol] 85.7 fL 81-99 [facility] Mean corpuscular hemoglobin (MCH) determinationOrdered By: Neal Dunaway on 08-04-2024 MCH (RBC) [Entitic mass] 29.3 pg 27.0-32.0 [facility] Mean corpuscular hemoglobin concentration (MCHC) determinationOrdered By: Neal Dunaway on 08-04-2024 MCHC (RBC) [Mass/Vol] 34.2 g/dL 32-36 [facility] Mean platelet volume determi nationOrdered By: Neal Dunaway on 08-04-2024 Platelet mean volume (Bld) [Entitic vol] 10.4 fL 6.2-12.0 [facility] Monocyte percentageOrdered B y: Neal Dunaway on 08-04-2024 Monocytes/100 WBC (Bld) 6.3 % 0-10 [facility] Neutrophil percentageOrdered By: Neal Dunaway on 08-04-2024 Neutrophils/100 WBC (Bld) 43.6 % Low 47-70 [facility] Nucleated red blood cell per centageOrdered By: Neal Dunaway on 08-04-2024 Nucleated RBC/100 WBC (Bld) [Ratio] 0 % 0-5 [facility] Platelet countOrdered By: Kaylynn Dunaway on 08-04-2024 Platelets (Bld) [#/Vol] 251 10*3/uL 150-450 [facility] Potassium measurementOrdered By: Neal Dunaway on 08-04-2024 Potassium [Moles/Vol] 3.6 mmol/L 3.5-5.1 [facility] RBC Auto (Bld) [#/Vol]Ordere d By: Neal Dunaway on 08-04-2024 RBC (Bld) [#/Vol] 4.20 10*6/uL 4.2-5.4 [facility] Serum anion gap measurementO rdered By: Neal Dunaway on 08-04-2024 Anion gap [Moles/Vol] 5 mmol/L 5- [facility] Serum or plasma calcium pradip urement (mass/volume)Ordered By: Neal Dunaway on 08-04-2024 Calcium [Mass/Vol] 8.3 mg/dL Low 8.5-10.1 [facility] Serum or plasma creatinine m easurement (mass/volume)Ordered By: Neal Dunaway on 08-04-2024 Creatinine [Mass/Vol] 0.50 mg/dL Low 0.55-1.02 [facility] Comment on above: The validity of the calculated GFR & GFRAA in patients over 70 years has not been determined. Clinical correlation is essential. Serum or plasma urea nitroge n measurement (mass/volume)Ordered By: Neal Dunaway on 08-04-2024 Urea nitrogen [Mass/Vol] 8 mg/dL - [facility] Sodium levelOrdered By: Parvez Dunaway on 08-04-2024 Sodium [Moles/Vol] 140 mmol/L 136-145 [facility] White blood cell (WBC) count Ordered By: Neal Dunaway on 08-04-2024 WBC (Bld) [#/Vol] 6.2 10*3/uL 4.4-11.0 [facility] Basic Metabolic Profile (BMP )on 08-03-2024 BUN/CRE 23.6 RATIO High 10-20 [facility] Comment on above: Performed By: #### L 500.2500, L100.0100 ####[facility] [address] [place], [address] CA,Total 8.2 mg/dL Low 8.5-10.1 [facility] Comment on above: Performed By: #### L 500.2500, L100.0100 ####[facility] [address] [place], [address] Chloride [Moles/Vol] 112 mmol/L High 98-107 [facility] Comment on above: Performed By: #### L 500.2500, L100.0100 ####[facility] [address] [place], [address] CO2 [Moles/Vol] 24.0 mmol/L Normal 21.0-32.0 [facility] Comment on above: Performed By: #### L 500.2500, L100.0100 ####[facility] [address] [place], [address] Creatinine [Mass/Vol] 0.59 mg/dL Normal 0.55-1.02 [facility] Comment on above: Result Comment: The validity of the calculated GFR GFRAA in patients over70 years has not been determined. Clinical correlation isessential. Performed By: #### L 500.2500, L100.0100 ####[facility] [address] [place], [address] ECRCL 110.31 ml/min Normal [facility] Comment on above: Performed By: #### L 500.2500, L100.0100 ####[facility] [address] [place], [address] EST GFR - AA 131 mL/min Normal >60 [facility] Comment on above: Result Comment: Afri can [place] GFR Calc Performed By: #### L 500.2500, L100.0100 ####[facility] [address] [place], [address] GAP 5 Normal 5-15 [facility] Comment on above: Performed By: #### L 500.2500, L100.0100 ####[facility] [address] [place], [address] GFR/1.73 sq M.predicted among non-blacks MDRD (S/P/Bld) [Vol rate/Area] 109 mL/min/{1.73_m2} Normal >60 [facility] Comment on above: Result Comment: Non- GFR Calc Performed By: #### L 500.2500, L100.0100 ####[facility] [address] [place], [address] Glucose [Mass/Vol] 168 mg/dL High 74-106 [facility] Comment on above: Result Comment: Fast ing Glucose result greater than or equal to 126 mg/dLsuggests DIABETES MELLITUS per A.D.A. criteria. Performed By: #### L 500.2500, L100.0100 ####[facility] [address] [place], [address] Potassium [Moles/Vol] 3.4 mmol/L Low 3.5-5.1 [facility] Comment on above: Performed By: #### L 500.2500, L100.0100 ####[facility] [address] [place], [address] Sodium [Moles/Vol] 141 mmol/L Normal 136-145 [facility] Comment on above: Performed By: #### L 500.2500, L100.0100 ####[facility] [address] [place], [address] Urea nitrogen [Mass/Vol] 14 mg/dL Normal 7-18 [facility] Comment on above: Performed By: #### L 500.2500, L100.0100 ####[facility] [address] [place], [address] Bedside Glucoseon 08-03-2024 FINGERSTICK GLU 202 mg/dL [facility]106 [facility] Comment on above: Result Comment: JAIME GEMENT OF PATIENT CARE PER NURSING PROTOCOL Performed By: #### L 501.080 ####[facility] [address] [place], [address] FINGERSTICK GLU 190 mg/dL High [address] [place] [address] Comment on above: Result Comment: JAIME GEMENT OF PATIENT CARE PER NURSING PROTOCOL Performed By: #### L 501.080 ####[facility] [address] [place], [address] FINGERSTICK GLU 283 mg/dL High [address] [place] [address] Comment on above: Result Comment: JAIME GEMENT OF PATIENT CARE PER NURSING PROTOCOL Performed By: #### L 501.080 ####[facility] [address] [place], [address] FINGERSTICK GLU 152 mg/dL High [address] [place] [address] Comment on above: Result Comment: JAIME GEMENT OF PATIENT CARE PER NURSING PROTOCOL Performed By: #### L 501.080 ####[facility] [address] [place], [address] CBC W/Diff, Automatedon 07-11 Absolute Lymph 2.40 X10 3/uL Normal 0.83-4.51 [facility] Comment on above: Performed By: #### L 500.2500, L100.0100 ####[facility] [address] [place], [address] Absolute Neut 3.4 X10 3/uL Normal 2.0-7.7 [facility] Comment on above: Performed By: #### L 500.2500, L100.0100 ####[facility] [address] [place], [address] Basophils/100 WBC (Bld) 0.2 % Normal 0-1 [facility] Comment on above: Performed By: #### L 500.2500, L100.0100 ####[facility] [address] [place], [address] Eosinophils/100 WBC (Bld) 3.4 % Normal 0-5 [facility] Comment on above: Performed By: #### L 500.2500, L100.0100 ####[facility] [address] [place], [address] Erythrocyte distribution width (RBC) [Ratio] 13.5 % Normal 11.6-14.6 [facility] Comment on above: Performed By: #### L 500.2500, L100.0100 ####[facility] [address] [place], [address] Hematocrit (Bld) [Volume fraction] 36.3 % Low 37-47 [facility] Comment on above: Performed By: #### L 500.2500, L100.0100 ####[facility] [address] [place], [address] Hemoglobin (Bld) [Mass/Vol] 12.4 g/dL Normal 12.0-15.0 [facility] Comment on above: Performed By: #### L 500.2500, L100.0100 ####[facility] [address] [place], [address] IG% 0.500 Normal 0.0-0.9 [facility] Comment on above: Result Comment: IG% - Immature Granulocytes (promyelocytes, myelocytes andmetamyelocytes) > 1% indicates that a LEFT SHIFT is Present. Performed By: #### L 500.2500, L100.0100 ####[facility] [address] [place], [address] Lymphocytes/100 WBC (Bld) 36.8 % Normal 19-41 [facility] Comment on above: Performed By: #### L 500.2500, L100.0100 ####[facility] [address] [place], [address] MCH (RBC) [Entitic mass] 29.5 pg Normal 27.0-32.0 [facility] Comment on above: Performed By: #### L 500.2500, L100.0100 ####[facility] [address] [place], [address] MCHC (RBC) [Mass/Vol] 34.2 g/dL Normal 32-36 [facility] Comment on above: Performed By: #### L 500.2500, L100.0100 ####[facility] [address] [place], [address] MCV (RBC) [Entitic vol] 86.2 fL Normal 81-99 [facility] Comment on above: Performed By: #### L 500.2500, L100.0100 ####[facility] [address] [place], [address] Monocytes/100 WBC (Bld) 6.7 % Normal 0-10 [facility] Comment on above: Performed By: #### L 500.2500, L100.0100 ####[facility] [address] [place], [address] Neutrophils/100 WBC (Bld) 52.4 % Normal 47-70 [facility] Comment on above: Performed By: #### L 500.2500, L100.0100 ####[facility] [address] [place], [address] Nucleated RBC (Bld) [#/Vol] 0 10*3/uL Normal 0-5 [facility] Comment on above: Performed By: #### L 500.2500, L100.0100 ####[facility] [address] [place], [address] Platelet mean volume (Bld) [Entitic vol] 10.0 fL Normal 6.2-12.0 [facility] Comment on above: Performed By: #### L 500.2500, L100.0100 ####[facility] [address] [place], [address] Platelets (Bld) [#/Vol] 221 10*3/uL Normal 150-450 [facility] Comment on above: Performed By: #### L 500.2500, L100.0100 ####[facility] [address] [place], [address] RBC (Bld) [#/Vol] 4.21 10*6/uL Normal 4.2-5.4 [facility] Comment on above: Performed By: #### L 500.2500, L100.0100 ####[facility] [address] [place], [address] RDW SD 41.8 fl Normal 35.1-43.9 [facility] Comment on above: Performed By: #### L 500.2500, L100.0100 ####[facility] [address] [place], [address] WBC (Bld) [#/Vol] 6.5 10*3/uL Normal 4.4-11.0 [facility] Comment on above: Performed By: #### L 500.2500, L100.0100 ####[facility] [address] [place], [address] CNPNon 08-03-2024 CNPN Normal [facility] Gram Stainon 08-03-2024 GS List Antibiotics Las t 48 Hours? macrobid List Antibiotics to be Started? none Acceptable Specimen? Yes (<25 Epithelial cells per/lpf) Gram Stain 2+ White Blood Cells 2+ Epithelial cells 2+ Gram positive cocci 2+ Gram negative rods 1+ Gram positive rods Normal [facility] Comment on above: Performed By: #### M 100.2400, M100.2000 ####[facility] [address] [place], [address] Urine Cultureon 08-03-2024 URC Culture exhibits no growth. Normal [facility] Comment on above: Performed By: #### M 100.2200 ####[facility] [address] [place], [address] 12 Lead EKGon 08-02-2024 12 Lead EKG Normal [facility] Base excess Calc (BldV) [Mol es/Vol]Ordered By: Marcelo Madrigal on 08-02-2024 Venous Blood Base Excess -5 mmol/L Low -1.0-3.5 [facility] Basic Metabolic Profile (BMP )on 08-02-2024 BUN/CRE 19.4 RATIO Normal 10-20 [facility] Comment on above: Performed By: #### L 500.2500, L100.0100 ####[facility] [address] [place], [address] CA,Total 9.1 mg/dL Normal 8.5-10.1 [facility] Comment on above: Performed By: #### L 500.2500, L100.0100 ####[facility] [address] [place], [address] Chloride [Moles/Vol] 103 mmol/L Normal 98-107 [facility] Comment on above: Performed By: #### L 500.2500, L100.0100 ####[facility] [address] [place], [address] CO2 [Moles/Vol] 21.0 mmol/L Normal 21.0-32.0 [facility] Comment on above: Performed By: #### L 500.2500, L100.0100 ####[facility] [address] [place], [address] Creatinine [Mass/Vol] 1.34 mg/dL High 0.55-1.02 [facility] Comment on above: Result Comment: The validity of the calculated GFR GFRAA in patients over70 years has not been determined. Clinical correlation isessential. Performed By: #### L 500.2500, L100.0100 ####[facility] [address] [place], [address] ECRCL 47.55 ml/min Normal [facility] Comment on above: Performed By: #### L 500.2500, L100.0100 ####[facility] [address] [place], [address] EST GFR - AA 51 mL/min Low >60 [facility] Comment on above: Result Comment: Afri can [place] GFR Calc Performed By: #### L 500.2500, L100.0100 ####[facility] [address] [place], [address] GAP 11 Normal 5-15 [facility] Comment on above: Performed By: #### L 500.2500, L100.0100 ####[facility] [address] [place], [address] GFR/1.73 sq M.predicted among non-blacks MDRD (S/P/Bld) [Vol rate/Area] 42 mL/min/{1.73_m2} Low >60 [facility] Comment on above: Result Comment: Non- GFR Calc Performed By: #### L 500.2500, L100.0100 ####[facility] [address] [place], [address] Glucose [Mass/Vol] 207 mg/dL High 74-106 [facility] Comment on above: Result Comment: Gluc ose result greater than or equal to 200 mg/dLsuggests DIABETES MELLITUS per A.D.A. criteria. Performed By: #### L 500.2500, L100.0100 ####[facility] [address] [place], [address] Potassium [Moles/Vol] 3.8 mmol/L Normal 3.5-5.1 [facility] Comment on above: Performed By: #### L 500.2500, L100.0100 ####[facility] [address] [place], [address] Sodium [Moles/Vol] 135 mmol/L Low 136-145 [facility] Comment on above: Performed By: #### L 500.2500, L100.0100 ####[facility] [address] [place], [address] Urea nitrogen [Mass/Vol] 26 mg/dL High 7-18 [facility] Comment on above: Performed By: #### L 500.2500, L100.0100 ####[facility] [address] [place], [address] Bedside Glucoseon 08-02-2024 FINGERSTICK GLU 186 mg/dL High 74-106 [facility] Comment on above: Result Comment: JAIME GEMENT OF PATIENT CARE PER NURSING PROTOCOL Performed By: #### L 501.080 ####[facility] [address] [place], [address] FINGERSTICK GLU 170 mg/dL High 74-106 [facility] Comment on above: Result Comment: JAIME GEMENT OF PATIENT CARE PER NURSING PROTOCOL Performed By: #### L 501.080 ####[facility] [address] [place], [address] Bilirubin Test strip Ql (U)O rdered By: Marcelo Madrigal on 08-02-2024 Bilirubin Ql (U) Negative Negative [facility] Blood cultureOrdered By: Marcelo Madrigal on 08-02-2024 Bacteria identified Cx Nom (Bld) No growth in 5 days. [facility] Bacteria identified Cx Nom (Bld) No growth in 5 days. [facility] C. difficile DNA NICOLE+probe Q l (Unsp spec)Ordered By: Thalia Hernandez on 08-02-2024 Clostridioides difficile (PCR) [facility] CBC W/Diff, Automatedon 11-2 Absolute Lymph 0.96 X10 3/uL Normal 0.83-4.51 [facility] Comment on above: Performed By: #### L 500.2500, L100.0100 ####[facility] [address] [place], [address] Absolute Neut 18.7 X10 3/uL High 2.0-7.7 [facility] Comment on above: Performed By: #### L 500.2500, L100.0100 ####[facility] [address] [place], [address] Basophils/100 WBC (Bld) 0.2 % Normal 0-1 [facility] Comment on above: Performed By: #### L 500.2500, L100.0100 ####[facility] [address] [place], [address] Eosinophils/100 WBC (Bld) 0.3 % Normal 0-5 [facility] Comment on above: Performed By: #### L 500.2500, L100.0100 ####[facility] [address] [place], [address] Erythrocyte distribution width (RBC) [Ratio] 13.2 % Normal 11.6-14.6 [facility] Comment on above: Performed By: #### L 500.2500, L100.0100 ####[facility] [address] [place], [address] Hematocrit (Bld) [Volume fraction] 43.8 % Normal 37-47 [facility] Comment on above: Performed By: #### L 500.2500, L100.0100 ####[facility] [address] [place], [address] Hemoglobin (Bld) [Mass/Vol] 15.3 g/dL High 12.0-15.0 [facility] Comment on above: Performed By: #### L 500.2500, L100.0100 ####[facility] [address] [place], [address] IG% 0.700 Normal 0.0-0.9 [facility] Comment on above: Result Comment: IG% - Immature Granulocytes (promyelocytes, myelocytes andmetamyelocytes) > 1% indicates that a LEFT SHIFT is Present. Performed By: #### L 500.2500, L100.0100 ####[facility] [address] [place], [address] Lymphocytes/100 WBC (Bld) 4.6 % Low 19-41 [facility] Comment on above: Performed By: #### L 500.2500, L100.0100 ####[facility] [address] [place], [address] MCH (RBC) [Entitic mass] 29.5 pg Normal 27.0-32.0 [facility] Comment on above: Performed By: #### L 500.2500, L100.0100 ####[facility] [address] [place], [address] MCHC (RBC) [Mass/Vol] 34.9 g/dL Normal 32-36 [facility] Comment on above: Performed By: #### L 500.2500, L100.0100 ####[facility] [address] [place], [address] MCV (RBC) [Entitic vol] 84.4 fL Normal 81-99 [facility] Comment on above: Performed By: #### L 500.2500, L100.0100 ####[facility] [address] [place], [address] Monocytes/100 WBC (Bld) 3.9 % Normal 0-10 [facility] Comment on above: Performed By: #### L 500.2500, L100.0100 ####[facility] [address] [place], [address] Neutrophils/100 WBC (Bld) 90.3 % High 47-70 [facility] Comment on above: Performed By: #### L 500.2500, L100.0100 ####[facility] [address] [place], [address] Nucleated RBC (Bld) [#/Vol] 0 10*3/uL Normal 0-5 [facility] Comment on above: Performed By: #### L 500.2500, L100.0100 ####[facility] [address] [place], [address] Platelet mean volume (Bld) [Entitic vol] 9.9 fL Normal 6.2-12.0 [facility] Comment on above: Performed By: #### L 500.2500, L100.0100 ####[facility] [address] [place], [address] Platelets (Bld) [#/Vol] 296 10*3/uL Normal 150-450 [facility] Comment on above: Performed By: #### L 500.2500, L100.0100 ####[facility] [address] [place], [address] RBC (Bld) [#/Vol] 5.19 10*6/uL Normal 4.2-5.4 [facility] Comment on above: Performed By: #### L 500.2500, L100.0100 ####[facility] [address] [place], [address] RDW SD 40.8 fl Normal 35.1-43.9 [facility] Comment on above: Performed By: #### L 500.2500, L100.0100 ####[facility] [address] [place], [address] WBC (Bld) [#/Vol] 20.7 10*3/uL High 4.4-11.0 [facility] Comment on above: Performed By: #### L 500.2500, L100.0100 ####[facility] [address] [place], [place], [address] CDIFF (PCR)on 08-02-2024 CDIFF Is the patient recei ving laxatives? N New/unexplained onset of 3 or more stools in past 24 hrs? Y Pending 027 027 NAP1-B1 Presumptive Negative *for epidemiolologic???use C. Diff PCR Negative- No toxigenic C. Diff Detected Normal [facility] Comment on above: Performed By: #### M 100.637, M100.5796 ####[facility] [address] [place], [place], [address] CO2 (BldV) [Moles/Vol]Ordere d By: Marcelo Madrigal on 08-02-2024 CO2 [Moles/Vol] 23 mmol/L 23-33 [facility] CO2 (BldV) [Partial pressure ]Ordered By: Marcelo Madrigal on 08-02-2024 Bed Mix Venous Bld PCO2 at Pat Temp 40.1 mmHg Low 41-51 [facility] Chest 1 View (Portable)on Chest 1 View (Portable) Normal [facility] ENTERIC PATHOGEN PANEL STOOL on 08-02-2024 EP PANEL Normal [facility] Comment on above: Performed By: #### M 100.637, M100.8296 ####[facility] [address] [place], [place], [address] Emergency Department Summary on 08-02-2024 Emergency Department Summary Normal [facility] Epithelial cells.squamous LM Ql (Urine sed)Ordered By: Marcelo Madrigal on 08-02-2024 Epithelial cells.squamous LM.HPF (Urine sed) [#/Area] 5 /[HPF] 5-10 [facility] Glucose Ql (U)Ordered By: Lakeisha Madrigal on 08-02-2024 Urine Glucose (UA) Normal mg/dl Normal [facility] Gram stainOrdered By: Thalia Hernandez on 08-02-2024 Microscopic observation Gram stain Nom (Unsp spec) [facility] H AND P Exam - Hospitaliston 08-02-2024 H&P Exam - Hospitalist Normal [facility] Influenza virus A and B and SARS-CoV-2 (COVID-19) and Respiratory syncytial virus RNAOrdered By: Marcelo Madrigal on 08-02-2024 SARS-CoV-2 (COVID-19) RNA NICOLE+probe Ql (Unsp spec) [facility] Ketones Test strip Ql (U)Ord ered By: Marcelo Madrigal on 08-02-2024 Ketones Ql (U) Negative Negative [facility] Lactic Acidon 08-02-2024 Lactate [Moles/Vol] 1.7 mmol/L Normal 0.4-1.9 [facility] Comment on above: Performed By: #### L 503.6005 ####[facility] [address] [place], [place], [address] Lactate [Moles/Vol] 3.3 mmol/L Invalid Interpretation Code 0.4-1.9 [facility] Comment on above: Order Comment: Y Result Comment: Crit ical Result(s) Called at: 07:24:48 08/02/2024 by: Angeline Munoz RN (ER). Results read back by same. Performed By: #### L 503.6005 ####[facility] [address] [place], [place], [address] Lactic acid measurementOrder ed By: Marcelo Madrigal on 08-02-2024 Lactate [Moles/Vol] 1.7 mmol/L 0.4-2.0 [facility] M100.678on 08-02-2024 M100.678 Pending SARS-CoV-2 (COVID 19) Negative INFLUENZA A Negative INFLUENZA B Negative RSV PCR Negative Normal [facility] Comment on above: Performed By: #### M 100.678 ####[facility] [address] [facility] [place], [place], [address] Microorganism identified Cx Nom (Unsp spec)Ordered By: Thalia Hernandez on 08-02-2024 Respiratory Culture [facility] Microscopic analysis of urin e for red blood cells (RBC)Ordered By: Marcelo Madrigal on 08-02-2024 Urine RBC 0 SEEN /hpf 0-5 [facility] Mucus LM Ql (Urine sed)Order ed By: Marcelo Madrigal on 08-02-2024 Mucus Ql (Urine sed) 0 SEEN /hpf [facility] Nitrite Test strip Ql (U)Ord ered By: Marcelo Madrigal on 08-02-2024 Nitrite Ql (U) Negative Negative [facility] No Panel InformationOrdered By: Marceloadrianne Madrigal on 08-02-2024 Blood Gas Sample Site Not entered [facility] Blood Gas Specimen Type NICOLE [facility] Oxygen Delivery Device Not entered W [facility] Oxygen (BldV) [Partial press ure]Ordered By: Marceloadrianne Madrigal on 08-02-2024 Venous Blood Partial Pressure O2 41 mmHg High 25-40 [facility] Protein Test strip Ql (U)Ord ered By: Marceloadrianne Madrigal on 08-02-2024 Protein Ql (U) 15 mg/dl High Negative [facility] RESPIRATORY PANEL MOLECULARo n 08-02-2024 RP PANEL Normal [facility] Comment on above: Performed By: #### M 100.638 ####[facility] [address] [place], [address] Respiratory pathogens DNA an d RNA panel NICOLE+probe (Resp)Ordered By: Thalia Hernandez on 08-02-2024 Respiratory Panel (PCR) [facility] Stool enteric pathogen panel by probe and target amplification methodOrdered By: Thalia Hernandez on 08-02-2024 Enteric Bacteriology [facility] Urinalysis, Completeon 08-02 EPI,SQUAMOUS 5-10 SEEN Normal 5-10 [facility] Comment on above: Order Comment: CLEAN CATCH Performed By: #### L 400.0001 ####[facility] [address] [place], [address] WBC 5-10 SEEN Normal 0-5 [facility] Comment on above: Order Comment: CLEAN CATCH Performed By: #### L 400.0001 ####[facility] [address] [place], [address] BACTERIA 0 SEEN Normal None Seen [facility] Comment on above: Order Comment: CLEAN CATCH Performed By: #### L 400.0001 ####[facility] [address] [place], [address] Mucus Ql (Urine sed) 0 SEEN Normal [facility] Comment on above: Order Comment: CLEAN CATCH Performed By: #### L 400.0001 ####[facility] [address] [place], [address] RBC 0 SEEN Normal 0-5 [facility] Comment on above: Order Comment: CLEAN CATCH Performed By: #### L 400.0001 ####[facility] [address] [place], [address] Urine blood detectionOrdered By: Marcelo Madrigal on 08-02-2024 Urine Occult Blood Negative Negative [facility] Urine clarityOrdered By: Marcelo Madrigal on 08-02-2024 Clarity (U) Clear Clear [facility] Urine color determinationOrd ered By: Marcelo Madrigal on 08-02-2024 Color (U) Yellow Yellow [facility] Urine cultureOrdered By: Angela Guerin on 08-02-2024 Bacteria identified Cx Nom (U) Culture exhibits no growth. [facility] Urine leukocyte esterase det ection by dipstickOrdered By: Marcelo Madrigal on 08-02-2024 Leukocyte esterase Test strip Ql (U) 500 /ul High Negative [facility] Urine pHOrdered By: Marcelo silver on 08-02-2024 pH (U) 6.0 [pH] 5.0 - 8.0 [facility] Urine sediment bacteria coun t by microscopy (number/high power field)Ordered By: Marcelo Madrigal on 08-02-2024 Bacteria LM.HPF (Urine sed) [#/Area] 0 /[HPF] None Seen [facility] Urine specific gravity measu rementOrdered By: Marcelo Madrigal on 08-02-2024 Specific gravity (U) [Rel density] 1.015 1.002-1.030 [facility] Urobilinogen Ql (U)Ordered B y: Marcelo Madrigal on 08-02-2024 Urine Urobilinogen Normal mg/dl Normal [facility] Venous Blood Gason 4 Blood Gas Type NICOLE Normal [facility] Comment on above: Performed By: #### L 9000.0810 ####[facility] [address] [place], [address] CO2 [Moles/Vol] 23 mmol/L Normal 23-33 [facility] Comment on above: Performed By: #### L 0.0810 ####[facility] [address] [place], [address] HCO3 (Bld) [Moles/Vol] 21 mmol/L Low 22-26 [facility] Comment on above: Performed By: #### L 0.0810 ####[facility] [address] [place], [address] O2 Delivery Dev Not entered Normal [facility] Comment on above: Performed By: #### L 0.0810 ####[facility] [address] [place], [address] SITE Not entered Normal [facility] Comment on above: Performed By: #### L 9000.0810 ####[facility] [address] [place], [address] VBG BE -5 mmol/L Low -1.0-3.5 [facility] Comment on above: Performed By: #### L 9000.0810 ####[facility] [address] [place], [address] VBG pCO2 40.1 mmHg Low 41-51 [facility] Comment on above: Performed By: #### L 9000.0810 ####[facility] [address] [place], [address] VBG pH 7.34 Normal 7.32-7.42 [facility] Comment on above: Performed By: #### L 9000.0810 ####[facility] [address] [place], [place], [address] VBG PO2 41 mmHg High 25-40 [facility] Comment on above: Performed By: #### L 9000.0810 ####[facility] [address] [place], [place], [address] VBG SO2 73 High 50-70 [facility] Comment on above: Performed By: #### L 9000.0810 ####[facility] [address] [place], [place], [address] Venous blood bicarbonate ruchi surementOrdered By: Marcelo Madrigal on 08-02-2024 HCO3 (Bld) [Moles/Vol] 21 mmol/L Low 22-26 [facility] Venous blood oxygen saturati on measurementOrdered By: Marcelo Madrigal on 08-02-2024 Oxygen saturation in Blood 73 % High 50-70 [facility] White blood cell countOrdere d By: Marcelo Madrigal on 08-02-2024 Urine WBC 5-10 SEEN /hpf 0-5 [facility] pH (BldV)Ordered By: Marcelo Gal lo on 08-02-2024 Venous Blood pH 7.34 7.32-7.42 [facility] Bacteria Ur Culton Bacteria identified Cx Nom (U) Normal [facility] Comment on above: Performed By: #### 6 30-4 ####[facility] LABCLIA [id number] [place] [address] [place] CNOVon 08-01-2024 CNOV Normal [facility] UA DIP, URINE (POC)on 2023 BILIRUBIN UA (POCT) Negative Negative [facility] CLARITY UA (POCT) Clear [facility] COLOR UA (POCT) Yellow [facility] GLUCOSE UA (POCT) Negative Negative mg/dL [facility] Hemoglobin Ql (U) Negative Negative [facility] KETONE UA (POCT) Trace Negative mg/dL [facility] LEUKOCYTES UA (POCT) Negative Negative [facility] NITRITE UA (POCT) Negative Negative [facility] PH UA (POCT) 5.5 4.5 - 8.0 [facility] Protein Ql (U) Negative Negative mg/dL [facility] SPECIFIC GRAVITY UA (POCT) 1.020 1.005 - 1.030 [facility] UROBILINOGEN UA (POCT) 0.2 Leonie l E.U./dL [facility] Location:[address], [place], [place], [address] [place] [address] POINT OF CARE [facility] CNOVon 07-29-2024 CNOV Normal [facility] CNPNon 07-29-2024 CNPN Normal [facility] Methylmalonate SerPl-sCncon 07-29-2024 Methylmalonate [Moles/Vol] 0.13 umol/L Normal <=0.40 [facility] Comment on above: Order Comment: Speci men Type: BLOOD SPECIMENOrdering Facility: [facility] Address: [address] [place] [address] Result Comment: This test was developed, and its performance characteristics determined by the [facility] Department of Pathology and Laboratory Medicine. It has not been cleared or approved by the FDA. The [facility] Department of Pathology and Laboratory Medicine is regulated under CLIA as qualified to perform high-complexity testing. This test is used for clinical purposes. It should not be regarded as investigational or for research. Performed By: #### 1 3964-2 ####[facility] LABIA [id number] [place] [address] [place] PROTEIN ELECTROPHORESIS SERU M WITH ODELL (P)on 07-29-2024 Albumin [Mass/Vol] 4.34 g/dL Normal 3.43-5.41 [facility] Comment on above: Order Comment: Speci men Type: BLOOD SPECIMENOrdering Facility: [facility] Address: [address] [place] [address] Performed By: #### L [id number] ####[facility] LABIA [id number] [place] [address] [place] Alpha 1 globulin Elph [Mass/Vol] 0.37 g/dL Normal 0.18-0.43 [facility] Comment on above: Order Comment: Speci men Type: BLOOD SPECIMENOrdering Facility: [facility] Address: [address] [place] [address] Performed By: #### L [id number] ####[facility] [id number] [place] [address] [place] Alpha 2 globulin Elph [Mass/Vol] 0.71 g/dL Normal 0.42-0.98 [facility] Comment on above: Order Comment: Speci men Type: BLOOD SPECIMENOrdering Facility: [facility] Address: [address] [place] [address] Performed By: #### L [id number] ####[facility] [id number] [place] [address] [place] Beta globulin Elph [Mass/Vol] 1.17 g/dL Normal 0.61-1.17 [facility] Comment on above: Order Comment: Speci men Type: BLOOD SPECIMENOrdering Facility: [facility] Address: [address] [place] [address] Performed By: #### L [id number] ####[facility] [id number] [place] [address] [place] COMMENT (SERUM PROT ELECTRO) Monoclonal Protein analysis (immunofixation) is not indicated. Normal [facility] Comment on above: Order Comment: Speci men Type: BLOOD SPECIMENOrdering Facility: [facility] Address: [address] [place] [address] Performed By: #### L [id number] ####[facility] [id number] [place] [address] [place] Gamma globulin Elph [Mass/Vol] 0.61 g/dL Normal 0.53-1.51 [facility] Comment on above: Order Comment: Speci men Type: BLOOD SPECIMENOrdering Facility: [facility] Address: [address] [place] [address] Performed By: #### L [id number] ####[facility] LABCLIA [id number] [place] [address] [place] M-PROTEIN LOCATION Normal [facility] Comment on above: Order Comment: Speci men Type: BLOOD SPECIMENOrdering Facility: [facility] Address: [address] [place] [address] Result Comment: Not Applicable. Performed By: #### L [id number] ####[facility] LABIA [id number] [place] [address] [place] Protein Fractions [Interp] No definitive M protein is identified on protein electrophoresis. Normal No definitive M protein is identified on protein electrophore sis. [facility] Comment on above: Order Comment: Speci men Type: BLOOD SPECIMENOrdering Facility: [facility] Address: [address] [place] [address] Performed By: #### L [id number] ####[facility] [id number] [place] [address] [place] Protein.monoclonal Elph [Mass/Vol] 0.00 g/dL Normal <=0.00 [facility] Comment on above: Order Comment: Speci men Type: BLOOD SPECIMENOrdering Facility: [facility] Address: [address] [place] [address] Performed By: #### L [id number] ####[facility] [id number] [place] [address] [place] SPE STAFF REVIEW Reviewed by Madonna Flores MD Normal [facility] Comment on above: Order Comment: Speci men Type: BLOOD SPECIMENOrdering Facility: [facility] Address: [address] [place] [address] Performed By: #### L [id number] ####[facility] LABIA [id number] [place] [address] [place] Prot SerPl-mCncon 07-29-2024 Protein [Mass/Vol] 7.2 g/dL Normal 6.3-8.0 [facility] Comment on above: Order Comment: Speci men Type: BLOOD SPECIMENOrdering Facility: [facility] Address: [address] [place] [address] Performed By: #### 2 132-9, 3016-3, 2885-2 ####[facility] LABCLIA [id number] [place] [address] [place] TSH SerPl-aCncon 07-29-2024 TSH Qn 1.370 m[IU]/L Normal 0.270-4.200 [facility] Comment on above: Order Comment: Speci men Type: BLOOD SPECIMENOrdering Facility: [facility] Address: [address] [place] [address] Performed By: #### 2 132-9, 3016-3, 2885-2 ####[facility] LABCLIA [id number] [place] [address] [place] Vit B12 SerPl-mCncon 024 Cobalamin (Vitamin B12) [Mass/Vol] 463 pg/mL Normal 232-1245 [facility] Comment on above: Order Comment: Speci men Type: BLOOD SPECIMENOrdering Facility: [facility] Address: [address] [place] [address] Performed By: #### 2 132-9, 3016-3, 2885-2 ####[facility] LABCLIA [id number] [place] [id number] [place] CNPTOUTREACHon 07-22-2024 CNPTOUTREACH Normal [facility] L/S Spine Min 4 Viewson L/S Spine Min 4 Views Normal [facility] Orthopedic Visit Reporton Orthopedic Visit Report Normal [facility] CNPNon 07-07-2024 CNPN Normal [facility] CNPTOUTREACHon 07-03-2024 CNPTOUTREACH Normal [facility] AAA Screeningon 07-02-2024 AAA Screening Normal [facility] Carotid Duplex Ultrasoundon 07-02-2024 Carotid Duplex Ultrasound Normal [facility] CNPNon 06-29-2024 CNPN Normal [facility] CT CHEST WO IVCONon 06-23-20 CT CHEST WO IVCON Normal [facility] ALBUMIN/CREATININE RATIO, UR INEon 06-22-2024 Albumin DL <= 20 mg/L (U) [Mass/Vol] mg/dL Normal [facility] Comment on above: Order Comment: Speci men Type: URINE SPECIMENOrdering Facility: [facility] Address: [address] [place] [address] Performed By: #### U ACR ####[facility] LABCLIA [id number] [place] [address] [place] Albumin/Creatinine (U) [Mass ratio] <12 Normal <30 [facility] Comment on above: Order Comment: Speci men Type: URINE SPECIMENOrdering Facility: [facility] Address: [address] [place] [address] Result Comment: Adul t Male and Female Nephrotic Criteria:<30 mg/g is considered normal to mildly bvjkdbaac22-814 mg/g is considered moderately increased>300 mg/g is considered severely increasedKDIGO. (2013). KDIGO 2012 Clinical Practice Guideline for the Evaluation and Management of Chronic Kidney Disease. Official Journal of the International Society of Nephrology, 3(1), 1-150. Performed By: #### U ACR ####[facility] LABCLIA [id number] [place] [address] [place] Creatinine (U) [Mass/Vol] 98.9 mg/dL Normal 20.0-300.0 [facility] Comment on above: Order Comment: Speci men Type: URINE SPECIMENOrdering Facility: [facility] Address: [address] [place] [id number] Performed By: #### U ACR ####[facility] LABCLIA [id number] [place] [id number] [place] CBC panel Auto (Bld)on 06-22 Erythrocyte distribution width (RBC) [Ratio] 14.6 % Normal 11.5-15.0 [facility] Comment on above: Order Comment: Speci men Type: BLOOD SPECIMENOrdering Facility: [facility] Address: [address] [place] [address] Performed By: #### 5 8410-2 ####[facility] LABIA [id number] [place] [address] [place] Hematocrit (Bld) [Volume fraction] 44.0 % Normal 36.0-46.0 [facility] Comment on above: Order Comment: Speci men Type: BLOOD SPECIMENOrdering Facility: [facility] Address: [address] [place] [address] Performed By: #### 5 8410-2 ####[facility] LABCLIA [id number] [place] [address] [place] Hemoglobin (Bld) [Mass/Vol] 14.6 g/dL Normal 11.5-15.5 [facility] Comment on above: Order Comment: Speci men Type: BLOOD SPECIMENOrdering Facility: [facility] Address: [address] [place] [address] Performed By: #### 5 8410-2 ####[facility] LABIA [id number] [place] [address] [place] MCH (RBC) [Entitic mass] 29.0 pg Normal 26.0-34.0 [facility] Comment on above: Order Comment: Speci men Type: BLOOD SPECIMENOrdering Facility: [facility] Address: [address] [place] [address] Performed By: #### 5 8410-2 ####[facility] LABCLIA [id number] [place] [address] [place] MCHC (RBC) [Mass/Vol] 33.2 g/dL Normal 30.5-36.[address] [facility] Comment on above: Order Comment: Speci men Type: BLOOD SPECIMENOrdering Facility: [facility] Address: [address] [place] [address] Performed By: #### 5 8410-2 ####[facility] LABCLIA [id number] [place] [address] [place] MCV (RBC) [Entitic vol] 87.3 fL Normal 80.0-100.0 [facility] Comment on above: Order Comment: Speci men Type: BLOOD SPECIMENOrdering Facility: [facility] Address: [address] [place] [address] Performed By: #### 5 8410-2 ####[facility] LABCLIA [id number] [place] [address] [place] Nucleated RBC (Bld) [#/Vol] 10*3/uL Normal <0.01 [facility] Comment on above: Order Comment: Speci men Type: BLOOD SPECIMENOrdering Facility: [facility] Address: [address] [place] [address] Performed By: #### 5 8410-2 ####[facility] LABCLIA [id number] [place] [address] [place] Platelet mean volume (Bld) [Entitic vol] 10.5 fL Normal 9.0-12.7 [facility] Comment on above: Order Comment: Speci men Type: BLOOD SPECIMENOrdering Facility: [facility] Address: [address] [place] [address] Performed By: #### 5 8410-2 ####[facility] LABCLIA [id number] [place] [address] [place] Platelets (Bld) [#/Vol] 325 10*3/uL Normal 150-400 [facility] Comment on above: Order Comment: Speci men Type: BLOOD SPECIMENOrdering Facility: [facility] Address: [address] [place] [address] Performed By: #### 5 8410-2 ####[facility] LABCLIA [id number] [place] [address] [place] RBC (Bld) [#/Vol] 5.04 10*6/uL Normal 3.90-5.20 [facility] Comment on above: Order Comment: Speci men Type: BLOOD SPECIMENOrdering Facility: [facility] Address: [address] [place] [address] Performed By: #### 5 8410-2 ####[facility] [id number] [place] [address] [place] WBC (Bld) [#/Vol] 8.99 10*3/uL Normal 3.70-11.00 [facility] Comment on above: Order Comment: Speci men Type: BLOOD SPECIMENOrdering Facility: [facility] Address: [address] [place] [address] Performed By: #### 5 8410-2 ####[facility] [id number] [place] [address] [place] Cholesterol in LDL Direct as say [Mass/Vol]on 06-22-2024 Cholesterol in LDL [Mass/Vol] 54 mg/dL Normal <100 [facility] Comment on above: Order Comment: Speci men Type: BLOOD SPECIMENOrdering Facility: [facility] Address: [address] [place] [address] Result Comment: <100 mg/dL, Optimal 100-129 mg/dL, Near optimal/above optimal 130-159 mg/dL, Borderline high 160-189 mg/dL, High>189 mg/dL, Very highSecondary prevention optimal LDL Cholesterol levels are recommended to be < 70 mg/dL Performed By: #### 1 8262-6, 29578-4, 57075-7, 60429-0 ####[facility] LABIA [id number] [place] [address] [place] Cholesterol in VLDL [Mass/Vol] 60 mg/dL High <30 [facility] Comment on above: Order Comment: Speci men Type: BLOOD SPECIMENOrdering Facility: [facility] Address: [address] [place] [address] Performed By: #### 1 8262-6, 51043-4, 56461-3, 50135-7 ####[facility] LABCLIA [id number] [address] [address] [place] Comprehensive metabolic 2000 panelon 06-22-2024 Albumin [Mass/Vol] 4.4 g/dL Normal 3.9-4.9 [facility] Comment on above: Order Comment: Speci men Type: BLOOD SPECIMENOrdering Facility: [facility] Address: [address] [place] [address] Performed By: #### 1 8262-6, 16837-1, 20431-5, ####[facility] LABCLIA [id number] [place] [address] [place] ALP [Catalytic activity/Vol] 63 U/L Normal 34-123 [facility] Comment on above: Order Comment: Speci men Type: BLOOD SPECIMENOrdering Facility: [facility] Address: [address] [place] [address] Performed By: #### 1 8262-6, 84983-5, 80215-5, ####[facility] LABIA [id number] [place] [address] [place] ALT [Catalytic activity/Vol] 14 U/L Normal 7-38 [facility] Comment on above: Order Comment: Speci men Type: BLOOD SPECIMENOrdering Facility: [facility] Address: [address] [place] [address] Performed By: #### 1 8262-6, 68982-2, 63280-6, ####[facility] LABCLIA [id number] [place] [id number] [place] Anion gap [Moles/Vol] 13 mmol/L Normal 8-[address] [facility] Comment on above: Order Comment: Speci men Type: BLOOD SPECIMENOrdering Facility: [facility] Address: [address] [place] [address] Performed By: #### 1 8262-6, 84850-7, 85354-6, ####[facility] LABCLIA [id number] [place] [id number] [place] AST [Catalytic activity/Vol] 20 U/L Normal 13-35 [facility] Comment on above: Order Comment: Speci men Type: BLOOD SPECIMENOrdering Facility: [facility] Address: [address] [place] [address] Performed By: #### 1 8262-6, 98014-9, 58551-5, ####[facility] LABCLIA [id number] [place] [address] [place] Bilirubin [Mass/Vol] 0.2 mg/dL Normal 0.2-1.3 [facility] Comment on above: Order Comment: Speci men Type: BLOOD SPECIMENOrdering Facility: [facility] Address: [address] [place] [address] Performed By: #### 1 8262-6, 58564-6, 46928-0, ####[facility] LABCLIA [id number] [place] [address] [place] Calcium [Mass/Vol] 9.6 mg/dL Normal 8.5-10.2 [facility] Comment on above: Order Comment: Speci men Type: BLOOD SPECIMENOrdering Facility: [facility] Address: [address] [place] [address] Performed By: #### 1 8262-6, 68371-5, 86703-7, ####[facility] LABCLIA [id number] [place] [id number] [place] Chloride [Moles/Vol] 100 mmol/L Normal 98-107 [facility] Comment on above: Order Comment: Speci men Type: BLOOD SPECIMENOrdering Facility: [facility] Address: [address] [place] [address] Performed By: #### 1 8262-6, 15916-9, 35820-8, ####[facility] LABIA [id number] [address] [address] [place] CO2 [Moles/Vol] 26 mmol/L Normal 22-30 [facility] Comment on above: Order Comment: Speci men Type: BLOOD SPECIMENOrdering Facility: [facility] Address: [address] [place] [address] Performed By: #### 1 8262-6, 77915-5, 08515-9, ####[facility] LABIA [id number] [place] [address] [place] Creatinine [Mass/Vol] 0.52 mg/dL Low 0.58-0.[address] [facility] Comment on above: Order Comment: Speci men Type: BLOOD SPECIMENOrdering Facility: [facility] Address: [address] [place] [address] Performed By: #### 1 8262-6, 01069-7, 75685-8, ####[facility] [id number] [address] [address] [place] Creatinine and Glomerular filtration rate.predicted panel (S/P/Bld) 104 mL/min/1.73m??? Normal >=60 [facility] Comment on above: Order Comment: Speci men Type: BLOOD SPECIMENOrdering Facility: [facility] Address: [address] [place] [address] Result Comment: Inge mated Glomerular Filtration Rate (eGFR) is calculated using the 2020 CKD-EPI creatinine equation. This equation utilizes serum creatinine, sex, and age as parameters. The creatinine assay has traceable calibration to isotope dilution-mass spectrometry. Refer to KDIGO guidelines for clinical interpretation. In patients with unstable renal function, e.g. those with acute kidney injury, the eGFR may not accurately reflect actual GFR. Performed By: #### 1 8262-6, 14925-3, 59197-8, ####[facility] LABCLIA [id number] [address] [address] [place] Glucose [Mass/Vol] 158 mg/dL High 74-99 [facility] Comment on above: Order Comment: [place] Type: BLOOD SPECIMENOrdering Facility: [facility] Address: [address] [place] [address] Result Comment: The [place] Diabetes Association (ADA) provides guidance for cutoff values for fasting glucose and random glucose. The ADA defines fasting as no caloric intake for at least 8 hours. Fasting plasma glucose results between 100 to 125 mg/dL indicate increased risk for diabetes (prediabetes).Fasting plasma glucose results greater than or equal to 126 mg/dL meet the criteria for diagnosis of diabetes. In the absence of unequivocal hyperglycemia, results should be confirmed by repeat testing. In a patient with classic symptoms of hyperglycemia or hyperglycemic crisis, random plasma glucose results greater than or equal to 200 mg/dL meet the criteria for diagnosis of diabetes.Reference: Standards of Medical Care in Diabetes 2016, [place] [employer] Association. Diabetes Care. 2016.39(Suppl 1). Performed By: #### 1 8262-6, 49076-9, 90532-4, ####[facility] LABCLIA [id number] [address] [address] [place] Potassium [Moles/Vol] 3.5 mmol/L Low 3.7-5.[address] [facility] Comment on above: Order Comment: [place] Type: BLOOD SPECIMENOrdering Facility: [facility] Address: [address] [place] [address] Performed By: #### 1 8262-6, 81113-4, 49465-1, ####[facility] LABCLIA [id number] [address] [address] [place] Protein [Mass/Vol] 7.4 g/dL Normal 6.3-8.0 [facility] Comment on above: Order Comment: Speci men Type: BLOOD SPECIMENOrdering Facility: [facility] Address: [address] [place] [address] Performed By: #### 1 8262-6, 30880-6, 22255-1, ####[facility] LABCLIA [id number] [place] [address] [place] Sodium [Moles/Vol] 139 mmol/L Normal 136-144 [facility] Comment on above: Order Comment: Speci men Type: BLOOD SPECIMENOrdering Facility: [facility] Address: [address] [place] [address] Performed By: #### 1 8262-6, 96888-7, 56733-5, ####[facility] LABIA [id number] [place] [address] [place] Urea nitrogen [Mass/Vol] 14 mg/dL Normal 7-21 [facility] Comment on above: Order Comment: Speci men Type: BLOOD SPECIMENOrdering Facility: [facility] Address: [address] [place] [address] Performed By: #### 1 8262-6, 93674-6, 86432-5, ####[facility] LABIA [id number] [place] [address] [place] HbA1c (Bld)on 06-22-2024 Average glucose Estimated from glycated hemoglobin (Bld) [Mass/Vol] 157 mg/dL Normal [facility] Comment on above: Order Comment: Speci men Type: BLOOD SPECIMENOrdering Facility: [facility] Address: [address] [place] [address] Result Comment: eAG: (Estimated average glucose) is a calculated value from HgbA1c and is jewelry sales representative of the average blood glucose level in the last 2-3 month period. Performed By: #### 5 5454-3 ####[facility] LABCLIA [id number] [place] [address] [place] HbA1c (Bld) [Mass fraction] 7.1 % High 4.3-5.6 [facility] Comment on above: Order Comment: [place] Type: BLOOD SPECIMENOrdering Facility: [facility] Address: [address] [place] [address] Result Comment: [place] Diabetes Association guidelines indicate that patients with HgbA1c in the range 5.7-6.4% are at increased risk for development of diabetes, and intervention by lifestyle modification may be beneficial. HgbA1c greater or equal to 6.5% is considered diagnostic of diabetes. Performed By: #### 5 5454-3 ####[facility] LABCLIA [id number] [place] [address] [place] Lipid 1996 panelon 4 Cholesterol [Mass/Vol] 136 mg/dL Normal <200 [facility] Comment on above: Order Comment: [place] Type: BLOOD SPECIMENOrdering Facility: [facility] Address: [address] [place] [address] Result Comment: <200 mg/dL, Desirable 200-239 mg/dL, Borderline high>239 mg/dL, High Performed By: #### 1 8262-6, 87033-6, 86078-8, 71060-2 ####[facility] LABCLIA [id number] [place] [address] [place] Cholesterol in HDL [Mass/Vol] 22 mg/dL Low >39 [facility] Comment on above: Order Comment: [place] Type: BLOOD SPECIMENOrdering Facility: [facility] Address: [address] [place] [address] Result Comment: 40-5 9 mg/dL, Acceptable>59 mg/dL, High: Negative risk factor for coronary heart disease<40 mg/dL, Low: Positive risk factor for coronary heart disease Performed By: #### 1 8262-6, 75984-5, 34888-3, 83935-8 ####[facility] LABCLIA [id number] [address] [place] Cholesterol in LDL [Mass/Vol] Normal [facility] Comment on above: Order Comment: Speci men Type: BLOOD SPECIMENOrdering Facility: [facility] Address: [address] [place] [address] Result Comment: Unab le to calculate due to increased Triglycerides. See LDL-Chol, Direct. Performed By: #### 1 8262-6, 07510-6, 09324-0, ####[facility] LABCLIA [id number] [place] [id number] [place] [place] Cholesterol in LDL/Cholesterol in HDL [Mass ratio] Normal [facility] Comment on above: Order Comment: Speci men Type: BLOOD SPECIMENOrdering Facility: [facility] Address: [address] [place] [address] Result Comment: Unab le to calculate due to elevated Triglycerides.Reference:1. National Cholesterol Education Program ATP III Guideline At-A-Glance Quick Desk Reference: National Heart, Lung, and Blood [place]. National Institutes of Health. 2001: NIH Publication No. 01-3305.2. An International Atherosclerosis Society position paper: global recommendations for the management of dyslipidemia: executive summary, Atherosclerosis. 2014: 232(2):410-413. Performed By: #### 1 8262-6, 46691-9, 39928-5, ####[facility] LABCLIA [id number] [place] [address] [place] Cholesterol in VLDL [Mass/Vol] Normal [facility] Comment on above: Order Comment: Speci men Type: BLOOD SPECIMENOrdering Facility: [facility] Address: [address] [place] [address] Result Comment: Unab le to calculate due to increased Triglycerides. See LDL-Chol, Direct. Performed By: #### 1 8262-6, 07429-9, 83104-7, ####[facility] LABCLIA [id number] [address] [address] [place] Cholesterol non HDL [Mass/Vol] 114 mg/dL Normal <130 [facility] Comment on above: Order Comment: Speci men Type: BLOOD SPECIMENOrdering Facility: [facility] Address: [address] [place] [address] Result Comment: <130 mg/dL, Optimal 130-159 mg/dL, Near optimal/above optimal 160-189 mg/dL, Borderline high 190-219 mg/dL, High>219 mg/dL, Very highSecondary prevention optimal non HDL Cholesterol levels are recommended to be <100 mg/dL Performed By: #### 1 8262-6, 18440-9, 55323-6, 76412-8 ####[facility] LABCLIA [id number] [place] [address] [place] Cholesterol.total/Chol esterol in HDL [Mass ratio] 6.18 {ratio} High <5.10 [facility] Comment on above: Order Comment: Speci men Type: BLOOD SPECIMENOrdering Facility: [facility] Address: [address] [place] [address] Performed By: #### 1 8262-6, 49845-6, 25504-4, 76234-2 ####[facility] LABIA [id number] [place] [address] [place] FASTING TIME 10 hrs Normal [facility] Comment on above: Order Comment: Speci men Type: BLOOD SPECIMENOrdering Facility: [facility] Address: [address] [place] [address] Performed By: #### 1 8262-6, 90948-5, 10989-2, ####[facility] LABIA [id number] [place] [address] [place] Triglyceride [Mass/Vol] 407 mg/dL High <150 [facility] Comment on above: Order Comment: Speci men Type: BLOOD SPECIMENOrdering Facility: [facility] Address: [address] [place] [address] Result Comment: <150 mg/dL, Normal 150-199 mg/dL, Borderline high 200-499 mg/dL, High>499 mg/dL, Very high Performed By: #### 1 8262-6, 24054-6, 30856-7, ####[facility] LABCLIA [id number] [address] [address] [place] Magnesium SerPl-mCncon 06-22 Magnesium [Mass/Vol] 1.8 mg/dL Normal 1.7-2.3 [facility] Comment on above: Order Comment: Speci men Type: BLOOD SPECIMENOrdering Facility: [facility] Address: [address] [place] [address] Performed By: #### 1 8262-6, 11816-5, 33908-8, ####[facility] LABCLIA [id number] [address] [address] [place] CNPTOUTREACHon 06-04-2024 CNPTOUTREACH Normal [facility] CNPNon 05-20-2024 CNPN Normal [facility] CNOVon 05-19-2024 CNOV Normal [facility] COVID AND INFLUENZA A/B AND RSV PCR, ROUTINEon 05-19-2024 SARS-CoV-2 (COVID-19) RNA NICOLE+probe Ql (Unsp spec) SARS-COV-2 (AGENT OF COVID-19) RNA: Detected INFLUENZA A RNA: Not detected INFLUENZA B RNA: Not detected RESPIRATORY SYNCYTIAL VIRUS (RSV) RNA: Not detected Abnormal [facility] Comment on above: Performed By: #### C VFLRS ####[facility] LABCLIA [id number] [address] [address] [place] Urine Cultureon 05-11-2024 URC Mixed Gram Positive Organisms Gormania Count 11,000-25,000 MIXC Mixed contaminants. Submit a new specimen if indicated. Normal [facility] Comment on above: Performed By: #### M 100.2200 ####[facility] [address] [place], [address] Abdomen/Pelvis without Conto n 05-08-2024 Abdomen/Pelvis without Cont Normal [facility] Basic Metabolic Profile (BMP )on 05-08-2024 BUN/CRE 22.7 RATIO High 10-20 [facility] Comment on above: Performed By: #### L 100.0100, L500.2500 ####[facility] [address] [place], [address] CA,Total 9.1 mg/dL Normal 8.5-10.1 [facility] Comment on above: Performed By: #### L 100.0100, L500.2500 ####[facility] [address] [place], [address] Chloride [Moles/Vol] 104 mmol/L Normal 98-107 [facility] Comment on above: Performed By: #### L 100.0100, L500.2500 ####[facility] [address] [place], [address] CO2 [Moles/Vol] 28.0 mmol/L Normal 21.0-32.0 [facility] Comment on above: Performed By: #### L 100.0100, L500.2500 ####[facility] [address] [place], [address] Creatinine [Mass/Vol] 0.75 mg/dL Normal 0.55-1.02 [facility] Comment on above: Result Comment: The validity of the calculated GFR GFRAA in patients over70 years has not been determined. Clinical correlation isessential. Performed By: #### L 100.0100, L500.2500 ####[facility] [address] [place], [address] ECRCL 85.35 ml/min Normal [facility] Comment on above: Performed By: #### L 100.0100, L500.2500 ####[facility] [address] [place], [address] EST GFR - AA 100 mL/min Normal >60 [facility] Comment on above: Result Comment: Afri can [place] GFR Calc Performed By: #### L 100.0100, L500.2500 ####[facility] [address] [place], [address] GAP 7 Normal 5-15 [facility] Comment on above: Performed By: #### L 100.0100, L500.2500 ####[facility] [address] [place], [address] GFR/1.73 sq M.predicted among non-blacks MDRD (S/P/Bld) [Vol rate/Area] 83 mL/min/{1.73_m2} Normal >60 [facility] Comment on above: Result Comment: Non- GFR Calc Performed By: #### L 100.0100, L500.2500 ####[facility] [address] [place], [address] Glucose [Mass/Vol] 152 mg/dL High 74-106 [facility] Comment on above: Result Comment: Fast ing Glucose result greater than or equal to 126 mg/dLsuggests DIABETES MELLITUS per A.D.A. criteria. Performed By: #### L 100.0100, L500.2500 ####[facility] [address] [place], [address] Potassium [Moles/Vol] 3.3 mmol/L Low 3.5-5.1 [facility] Comment on above: Result Comment: Slig ht Hemolysis, Result may be falsely increased. Performed By: #### L 100.0100, L500.2500 ####[facility] [address] [place], [address] Sodium [Moles/Vol] 139 mmol/L Normal 136-145 [facility] Comment on above: Performed By: #### L 100.0100, L500.2500 ####[facility] [address] [place], [address] Urea nitrogen [Mass/Vol] 17 mg/dL Normal 7-18 [facility] Comment on above: Performed By: #### L 100.0100, L500.2500 ####[facility] [address] [place], [address] CBC W/Diff, Automatedon 08-3 0-2024 Absolute Lymph 4.90 X10 3/uL High 0.83-4.51 [facility] Comment on above: Performed By: #### L 100.0100, L500.2500 ####[facility] [address] [place], [address] Absolute Neut 5.4 X10 3/uL Normal 2.0-7.7 [facility] Comment on above: Performed By: #### L 100.0100, L500.2500 ####[facility] [address] [place], [address] Basophils/100 WBC (Bld) 0.5 % Normal 0-1 [facility] Comment on above: Performed By: #### L 100.0100, L500.2500 ####[facility] [address] [place], [address] Eosinophils/100 WBC (Bld) 1.9 % Normal 0-5 [facility] Comment on above: Performed By: #### L 100.0100, L500.2500 ####[facility] [address] [place], [address] Erythrocyte distribution width (RBC) [Ratio] 14.0 % Normal 11.6-14.6 [facility] Comment on above: Performed By: #### L 100.0100, L500.2500 ####[facility] [address] [place], [address] Hematocrit (Bld) [Volume fraction] 41.7 % Normal 37-47 [facility] Comment on above: Performed By: #### L 100.0100, L500.2500 ####[facility] [address] [place], [address] Hemoglobin (Bld) [Mass/Vol] 14.4 g/dL Normal 12.0-15.0 [facility] Comment on above: Performed By: #### L 100.0100, L500.2500 ####[facility] [address] [place], [address] IG% 0.400 Normal 0.0-0.9 [facility] Comment on above: Result Comment: IG% - Immature Granulocytes (promyelocytes, myelocytes andmetamyelocytes) > 1% indicates that a LEFT SHIFT is Present. Performed By: #### L 100.0100, L500.2500 ####[facility] [address] [place], [address] Lymphocytes/100 WBC (Bld) 43.6 % High 19-41 [facility] Comment on above: Performed By: #### L 100.0100, L500.2500 ####[facility] [address] [place], [address] MCH (RBC) [Entitic mass] 28.3 pg Normal 27.0-32.0 [facility] Comment on above: Performed By: #### L 100.0100, L500.2500 ####[facility] [address] [place], [address] MCHC (RBC) [Mass/Vol] 34.5 g/dL Normal 32-36 [facility] Comment on above: Performed By: #### L 100.0100, L500.2500 ####[facility] [address] [place], [address] MCV (RBC) [Entitic vol] 82.1 fL Normal 81-99 [facility] Comment on above: Performed By: #### L 100.0100, L500.2500 ####[facility] [address] [place], [address] Monocytes/100 WBC (Bld) 6.0 % Normal 0-10 [facility] Comment on above: Performed By: #### L 100.0100, L500.2500 ####[facility] [address] [place], [address] Neutrophils/100 WBC (Bld) 47.6 % Normal 47-70 [facility] Comment on above: Performed By: #### L 100.0100, L500.2500 ####[facility] [address] [place], [address] Nucleated RBC (Bld) [#/Vol] 0 10*3/uL Normal 0-5 [facility] Comment on above: Performed By: #### L 100.0100, L500.2500 ####[facility] [address] [place], [address] Platelet mean volume (Bld) [Entitic vol] 9.8 fL Normal 6.2-12.0 [facility] Comment on above: Performed By: #### L 100.0100, L500.2500 ####[facility] [address] [place], [address] Platelets (Bld) [#/Vol] 315 10*3/uL Normal 150-450 [facility] Comment on above: Performed By: #### L 100.0100, L500.2500 ####[facility] [address] [place], [address] RBC (Bld) [#/Vol] 5.08 10*6/uL Normal 4.2-5.4 [facility] Comment on above: Performed By: #### L 100.0100, L500.2500 ####[facility] [address] [place], [address] RDW SD 41.3 fl Normal 35.1-43.9 [facility] Comment on above: Performed By: #### L 100.0100, L500.2500 ####[facility] [address] [place], [address] WBC (Bld) [#/Vol] 11.3 10*3/uL High 4.4-11.0 [facility] Comment on above: Performed By: #### L 100.0100, L500.2500 ####[facility] [address] [place], [address] Emergency Department Summary on 05-08-2024 Emergency Department Summary Normal [facility] Urinalysis, Completeon 05-08 EPI,RENAL 0-5 SEEN Normal 0-5 [facility] Comment on above: Order Comment: ISHMAEL CTOR TO SPECIFY Performed By: #### L 400.0001 ####[facility] [address] [place], [address] EPI,SQUAMOUS 5-10 SEEN Normal 5-10 [facility] Comment on above: Order Comment: ISHMAEL CTOR TO SPECIFY Performed By: #### L 400.0001 ####[facility] [address] [place], [address] RBC 0-5 SEEN Normal 0-5 [facility] Comment on above: Order Comment: ISHMAEL CTOR TO SPECIFY Performed By: #### L 400.0001 ####[facility] [address] [place], [address] WBC 10-25 SEEN Normal 0-5 [facility] Comment on above: Order Comment: ISHMAEL CTOR TO SPECIFY Performed By: #### L 400.0001 ####[facility] [address] [place], [address] BACTERIA 0 SEEN Normal None Seen [facility] Comment on above: Order Comment: ISHMAEL CTOR TO SPECIFY Performed By: #### L 400.0001 ####[facility] [address] [place], [address] Mucus Ql (Urine sed) 0 SEEN Normal [facility] Comment on above: Order Comment: ISHMAEL SUGGSOR TO SPECIFY Performed By: #### L 400.0001 ####[facility] [address] [place], [address] CNOVon 05-07-2024 CNOV Normal [facility] CNPTOUTREACHon 04-28-2024 CNPTOUTREACH Normal [facility] CNOVon 04-20-2024 CNOV Normal [facility] CNPTOUTREACHon 04-09-2024 CNPTOUTREACH Normal [facility] Bacteria identified Cx Nom ( U)Ordered By: Monica Stewart on 04-01-2024 [facility] URINE CULTUREOrdered By: Marbella Stewart on 04-01-2024 Bacteria identified Cx Nom (U) <10,000 CFU/ml Normal urogenital bill [facility] CNPNon 03-31-2024 CNPN Normal [facility] Urinalysis complete panel (U )on 03-31-2024 Bacteria LM.HPF (Urine sed) [#/Area] Negative Negative /HPF [facility] Bilirubin Ql (U) Negative Negative [facility] Clarity (Unsp spec) Clear Clear [facility] Color (U) Yellow Yellow [facility] Epithelial cells LM.HPF (Urine sed) [#/Area] Few /HPF [facility] Glucose Test strip (U) [Mass/Vol] Negative Negative [facility] Hemoglobin Ql (U) Negative Negative [facility] Hyaline casts (Urine sed) [#/Area] 1-3 /LPF Abnormal 0 /LPF [facility] Interpretation and review of laboratory results Abnormal [facility] Ketones Ql (U) Negative Negative [facility] Leukocyte esterase Test strip Ql (U) Negative Negative [facility] Nitrite Ql (U) Negative Negative [facility] pH (U) 5.5 [pH] NINF - 8.5 [facility] Protein (U) [Mass/Vol] Negative Negative [facility] RBC LM.HPF (Urine sed) [#/Area] 0-2 /HPF 0-2 /HPF [facility] Specific gravity (U) [Rel density] 1.018 1.005 - 1.030 [facility] Urobilinogen Ql (U) 0.2 EU/dL 0.2-1.0 EU/dL [facility] WBC LM.HPF (Urine sed) [#/Area] 0-5 /HPF 0-5 /HPF [facility] This test was develo ped and its performance characteristics determined by [facility]'s [facility] Pathology and Laboratory Medicine [place] ([facility]). It has not been cleared or approved by the FDA. -[facility] is regulated under CLIA as qualified to perform high-complexity testing. This test is used for clinical purposes. It should not be regarded as investigational or for research. [facility] Bacteria Ur Culton 4 Bacteria identified Cx Nom (U) ORGANISM ID: 1 <10,000 CFU/ml Normal urogenital bill Normal [facility] Comment on above: Performed By: #### 6 30-4 ####[facility] LABCLIA [id number] [place] [address] [place] CNOVon 03-30-2024 CNOV Normal [facility] Urinalysis complete panel (U )on 03-30-2024 Bacteria LM.HPF (Urine sed) [#/Area] Negative Normal Negative [facility] Comment on above: Order Comment: Speci men Type: URINE SPECIMENOrdering Facility: [facility] Address: [address] [place] [address] Performed By: #### 2 4356-8 ####[facility] LABCLIA [id number] [place] [address] [place] Bilirubin Ql (U) Negative Normal Negative [facility] Comment on above: Order Comment: Speci men Type: URINE SPECIMENOrdering Facility: [facility] Address: [address] [place] [address] Performed By: #### 2 4356-8 ####[facility] LABCLIA [id number] [place] [address] [place] Clarity (Unsp spec) Clear Normal Clear [facility] Comment on above: Order Comment: Speci men Type: URINE SPECIMENOrdering Facility: [facility] Address: [address] [place] [address] Performed By: #### 2 4356-8 ####[facility] LABCLIA [id number] [place] [address] [place] Color (U) Yellow Normal Yellow [facility] Comment on above: Order Comment: Speci men Type: URINE SPECIMENOrdering Facility: [facility] Address: [address] [place] [address] Performed By: #### 2 4356-8 ####[facility] LABCLIA [id number] [place] [address] [place] Epithelial cells LM.HPF (Urine sed) [#/Area] Few Normal [facility] Comment on above: Order Comment: Speci men Type: URINE SPECIMENOrdering Facility: [facility] Address: [address] [place] [address] Performed By: #### 2 4356-8 ####[facility] LABCLIA [id number] [place] [address] [place] Glucose Test strip (U) [Mass/Vol] Negative Normal Negative [facility] Comment on above: Order Comment: Speci men Type: URINE SPECIMENOrdering Facility: [facility] Address: [address] [place] [address] Performed By: #### 2 4356-8 ####[facility] LABCLIA [id number] [place] [address] [place] Hemoglobin Ql (U) Negative Normal Negative [facility] Comment on above: Order Comment: Speci men Type: URINE SPECIMENOrdering Facility: [facility] Address: [address] [place] [address] Performed By: #### 2 4356-8 ####[facility] LABCLIA [id number] [place] [address] [place] Hyaline casts (Urine sed) [#/Area] 1-3 /LPF Abnormal 0 /LPF [facility] Comment on above: Order Comment: Speci men Type: URINE SPECIMENOrdering Facility: [facility] Address: [address] [place] [address] Performed By: #### 2 4356-8 ####[facility] LABCLIA [id number] [place] [address] [place] Ketones Ql (U) Negative Normal Negative [facility] Comment on above: Order Comment: Speci men Type: URINE SPECIMENOrdering Facility: [facility] Address: [address] [place] [address] Performed By: #### 2 4356-8 ####[facility] LABCLIA [id number] [place] [address] [place] Leukocyte esterase Test strip Ql (U) Negative Normal Negative [facility] Comment on above: Order Comment: Speci men Type: URINE SPECIMENOrdering Facility: [facility] Address: [address] [place] [address] Performed By: #### 2 4356-8 ####[facility] LABCLIA [id number] [place] [address] [place] Nitrite Ql (U) Negative Normal Negative [facility] Comment on above: Order Comment: Speci men Type: URINE SPECIMENOrdering Facility: [facility] Address: [address] [place] [address] Performed By: #### 2 4356-8 ####[facility] LABCLIA [id number] [place] [address] [place] pH (U) 5.5 [pH] Normal <8.5 [facility] Comment on above: Order Comment: Speci men Type: URINE SPECIMENOrdering Facility: [facility] Address: [address] [place] [address] Performed By: #### 2 4356-8 ####[facility] LABCLIA [id number] [place] [address] [place] Protein (U) [Mass/Vol] Negative Normal Negative Cl [facility] Comment on above: Order Comment: Speci men Type: URINE SPECIMENOrdering Facility: [facility] Address: [address] [place] [address] Performed By: #### 2 4356-8 ####[facility] LABIA [id number] [place] [address] [place] RBC LM.HPF (Urine sed) [#/Area] 0-2 /HPF Normal 0-2 /HPF [facility] Comment on above: Order Comment: Speci men Type: URINE SPECIMENOrdering Facility: [facility] Address: [address] [place] [address] Performed By: #### 2 4356-8 ####[facility] LABIA [id number] [place] [address] [place] Specific gravity (U) [Rel density] 1.018 Normal 1.005-1.030 [facility] Comment on above: Order Comment: Speci men Type: URINE SPECIMENOrdering Facility: [facility] Address: [address] [place] [address] Performed By: #### 2 4356-8 ####[facility] LABIA [id number] [place] [address] [place] Urobilinogen Ql (U) 0.2 EU/dL Normal 0.2-1.0 EU/dL [facility] Comment on above: Order Comment: Speci men Type: URINE SPECIMENOrdering Facility: [facility] Address: [address] [place] [address] Performed By: #### 2 4356-8 ####[facility] LABIA [id number] [place] [address] [place] WBC LM.HPF (Urine sed) [#/Area] 0-5 /HPF Normal 0-5 /HPF [facility] Comment on above: Order Comment: Speci men Type: URINE SPECIMENOrdering Facility: [facility] Address: [address], [place] [address] Performed By: #### 2 4356-8 ####[facility] LABCLIA [id number] [address] [id number] [address] [place] CNPTOUTREACHon 03-26-2024 CNPTOUTREACH Normal [facility] [facility] Blood (WB)on 2023 CUB Blood cultures x2 fr om two different sites No growth in 5 days. Normal [facility] Comment on above: Performed By: #### M 200.1000 ####[facility] [address] [place], [address] 12 Lead EKGon 03-24-2024 12 Lead EKG Normal [facility] Bedside Glucoseon 03-24-2024 FINGERSTICK GLU 143 mg/dL High 74-106 [facility] Comment on above: Result Comment: JAIME CARREON OF PATIENT CARE PER NURSING PROTOCOL Performed By: #### L 501.080 ####[facility] [address] [place], [address] Basic Metabolic Profile (BMP )on 03-23-2024 BUN/CRE 13.9 RATIO Normal 10-20 [facility] Comment on above: Performed By: #### L 500.2500, L100.0100 ####[facility] [address] [place], [address] CA,Total 8.3 mg/dL Low 8.5-10.1 [facility] Comment on above: Performed By: #### L 500.2500, L100.0100 ####[facility] [address] [place], [address] Chloride [Moles/Vol] 110 mmol/L High 98-107 [facility] Comment on above: Performed By: #### L 500.2500, L100.0100 ####[facility] [address] [place], [address] CO2 [Moles/Vol] 24.0 mmol/L Normal 21.0-32.0 [facility] Comment on above: Performed By: #### L 500.2500, L100.0100 ####[facility] [address] [place], [address] Creatinine [Mass/Vol] 0.58 mg/dL Normal 0.55-1.02 [facility] Comment on above: Result Comment: The validity of the calculated GFR GFRAA in patients over70 years has not been determined. Clinical correlation isessential. Performed By: #### L 500.2500, L100.0100 ####[facility] [address] [place], [address] ECRCL 112.12 ml/min Normal [facility] Comment on above: Performed By: #### L 500.2500, L100.0100 ####[facility] [address] [place], [address] EST GFR - AA 136 mL/min Normal >60 [facility] Comment on above: Result Comment: Afri can Namibian GFR Calc Performed By: #### L 500.2500, L100.0100 ####[facility] [address] [place], [address] GAP 4 Low 5-15 [facility] Comment on above: Performed By: #### L 500.2500, L100.0100 ####[facility] [address] [place], [address] GFR/1.73 sq M.predicted among non-blacks MDRD (S/P/Bld) [Vol rate/Area] 112 mL/min/{1.73_m2} Normal >60 [facility] Comment on above: Result Comment: Non- GFR Calc Performed By: #### L 500.2500, L100.0100 ####[facility] [address] [place], [address] Glucose [Mass/Vol] 149 mg/dL High 74-106 [facility] Comment on above: Result Comment: Fast ing Glucose result greater than or equal to 126 mg/dLsuggests DIABETES MELLITUS per A.D.A. criteria. Performed By: #### L 500.2500, L100.0100 ####[facility] [address] [place], [address] Potassium [Moles/Vol] 3.8 mmol/L Normal 3.5-5.1 [facility] Comment on above: Performed By: #### L 500.2500, L100.0100 ####[facility] [address] [place], [address] Sodium [Moles/Vol] 138 mmol/L Normal 136-145 [facility] Comment on above: Performed By: #### L 500.2500, L100.0100 ####[facility] [address] [place], [address] Urea nitrogen [Mass/Vol] 8 mg/dL Normal 7-18 [facility] Comment on above: Performed By: #### L 500.2500, L100.0100 ####[facility] [address] [place], [address] Bedside Glucoseon 03-23-2024 FINGERSTICK GLU 181 mg/dL High [address] [place] [address] Comment on above: Result Comment: JAIME GEMENT OF PATIENT CARE PER NURSING PROTOCOL Performed By: #### L 501.080 ####[facility] [address] [place], [address] FINGERSTICK GLU 250 mg/dL [address] Comment on above: Result Comment: JAIME GEMENT OF PATIENT CARE PER NURSING PROTOCOL Performed By: #### L 501.080 ####[facility] [address] [place], [address] FINGERSTICK GLU 266 mg/dL High 74-106 [facility] Comment on above: Result Comment: JAIME GEMENT OF PATIENT CARE PER NURSING PROTOCOL Performed By: #### L 501.080 ####[facility] [address] [place], [address] FINGERSTICK GLU 216 mg/dL High 74-106 [facility] Comment on above: Result Comment: JAIME GEMENT OF PATIENT CARE PER NURSING PROTOCOL Performed By: #### L 501.080 ####[facility] [address] [place], [address] FINGERSTICK GLU 151 mg/dL High 74-106 [facility] Comment on above: Result Comment: JAIME GEMENT OF PATIENT CARE PER NURSING PROTOCOL Performed By: #### L 501.080 ####[facility] [address] [place], [address] CBC W/Diff, Automatedon 07- Absolute Lymph 2.43 X10 3/uL Normal 0.83-4.51 [facility] Comment on above: Performed By: #### L 500.2500, L100.0100 ####[facility] [address] [place], [address] Absolute Neut 3.1 X10 3/uL Normal 2.0-7.7 [facility] Comment on above: Performed By: #### L 500.2500, L100.0100 ####[facility] [address] [place], [address] Basophils/100 WBC (Bld) 0.2 % Normal 0-1 [facility] Comment on above: Performed By: #### L 500.2500, L100.0100 ####[facility] [address] [place], [address] Eosinophils/100 WBC (Bld) 5.7 % High 0-5 [facility] Comment on above: Performed By: #### L 500.2500, L100.0100 ####[facility] [address] [place], [address] Erythrocyte distribution width (RBC) [Ratio] 12.6 % Normal 11.6-14.6 [facility] Comment on above: Performed By: #### L 500.2500, L100.0100 ####[facility] [address] [place], [address] Hematocrit (Bld) [Volume fraction] 39.8 % Normal 37-47 [facility] Comment on above: Performed By: #### L 500.2500, L100.0100 ####[facility] [address] [place], [address] Hemoglobin (Bld) [Mass/Vol] 13.3 g/dL Normal 12.0-15.0 [facility] Comment on above: Performed By: #### L 500.2500, L100.0100 ####[facility] [address] [place], [address] IG% 0.200 Normal 0.0-0.9 [facility] Comment on above: Result Comment: IG% - Immature Granulocytes (promyelocytes, myelocytes andmetamyelocytes) > 1% indicates that a LEFT SHIFT is Present. Performed By: #### L 500.2500, L100.0100 ####[facility] [address] [place], [address] Lymphocytes/100 WBC (Bld) 38.4 % Normal 19-41 [facility] Comment on above: Performed By: #### L 500.2500, L100.0100 ####[facility] [address] [place], [address] MCH (RBC) [Entitic mass] 27.7 pg Normal 27.0-32.0 [facility] Comment on above: Performed By: #### L 500.2500, L100.0100 ####[facility] [address] [place], [address] MCHC (RBC) [Mass/Vol] 33.4 g/dL Normal 32-36 [facility] Comment on above: Performed By: #### L 500.2500, L100.0100 ####[facility] [address] [place], [address] MCV (RBC) [Entitic vol] 82.9 fL Normal 81-99 [facility] Comment on above: Performed By: #### L 500.2500, L100.0100 ####[facility] [address] [place], [address] Monocytes/100 WBC (Bld) 6.0 % Normal 0-10 [facility] Comment on above: Performed By: #### L 500.2500, L100.0100 ####[facility] [address] [place], [address] Neutrophils/100 WBC (Bld) 49.5 % Normal 47-70 [facility] Comment on above: Performed By: #### L 500.2500, L100.0100 ####[facility] [address] [place], [address] Nucleated RBC (Bld) [#/Vol] 0 10*3/uL Normal 0-5 [facility] Comment on above: Performed By: #### L 500.2500, L100.0100 ####[facility] [address] [place], [address] Platelet mean volume (Bld) [Entitic vol] 10.1 fL Normal 6.2-12.0 [facility] Comment on above: Performed By: #### L 500.2500, L100.0100 ####[facility] [address] [place], [address] Platelets (Bld) [#/Vol] 238 10*3/uL Normal 150-450 [facility] Comment on above: Performed By: #### L 500.2500, L100.0100 ####[facility] [address] [place], [address] RBC (Bld) [#/Vol] 4.80 10*6/uL Normal 4.2-5.4 [facility] Comment on above: Performed By: #### L 500.2500, L100.0100 ####[facility] [address] [place], [address] RDW SD 38.3 fl Normal 35.1-43.9 [facility] Comment on above: Performed By: #### L 500.2500, L100.0100 ####[facility] [address] [place], [address] WBC (Bld) [#/Vol] 6.3 10*3/uL Normal 4.4-11.0 [facility] Comment on above: Performed By: #### L 500.2500, L100.0100 ####[facility] [address] [place], [address] CNPNon 03-23-2024 CNPN Normal [facility] CTA Chest W/WO Contraston CTA Chest W/WO Contrast Normal [facility] Gram Stainon 03-23-2024 GS List Antibiotics Las t 48 Hours? Levaquin Acceptable Specimen? Yes (<25 Epithelial cells per/lpf) Gram Stain 2+ Gram negative rods 2+ Gram positive cocci 1+ White Blood Cells Rare Epithelial cells Normal [facility] Comment on above: Performed By: #### M 100.2400, ####[facility] [address] [place], [address] Respiratory Cultureon 2023 RESPC List Antibiotics Las t 48 Hours? Levaquin Mixed normal respiratory bill. No Streptococcus pneumoniae, beta-hemolytic Streptococcus or Staphylococcus aureus isolated. Normal [facility] Comment on above: Performed By: #### M 100.2400, M1 ####[facility] [address] [place], [address] Basic Metabolic Profile (BMP )on 03-22-2024 BUN/CRE 19.9 RATIO Normal 10-20 [facility] Comment on above: Performed By: #### L 501.2300, L501.5200, L500.2500, L100.0100 ####[facility] [address] [place], [address] CA,Total 7.9 mg/dL Low 8.5-10.1 [facility] Comment on above: Performed By: #### L 501.2300, L501.5200, L500.2500, L100.0100 ####[facility] [address] [place], [address] Chloride [Moles/Vol] 107 mmol/L Normal 98-107 [facility] Comment on above: Performed By: #### L 501.2300, L501.5200, L500.2500, L100.0100 ####[facility] [address] [place], [address] CO2 [Moles/Vol] 26.0 mmol/L Normal 21.0-32.0 [facility] Comment on above: Performed By: #### L 501.2300, L501.5200, L500.2500, L100.0100 ####[facility] [address] [place], [address] Creatinine [Mass/Vol] 0.60 mg/dL Normal 0.55-1.02 [facility] Comment on above: Result Comment: The validity of the calculated GFR GFRAA in patients over70 years has not been determined. Clinical correlation isessential. Performed By: #### L 501.2300, L501.5200, L500.2500, L100.0100 ####[facility] [address] [place], [address] ECRCL 108.39 ml/min Normal [facility] Comment on above: Performed By: #### L 501.2300, L501.5200, L500.2500, L100.0100 ####[facility] [address] [place], [address] EST GFR - AA 129 mL/min Normal >60 [facility] Comment on above: Result Comment: Afri can [place] GFR Calc Performed By: #### L 501.2300, L501.5200, L500.2500, L100.0100 ####[facility] [address] [place], [address] GAP 5 Normal 5-15 [facility] Comment on above: Performed By: #### L 501.2300, L501.5200, L500.2500, L100.0100 ####[facility] [address] [place], [address] GFR/1.73 sq M.predicted among non-blacks MDRD (S/P/Bld) [Vol rate/Area] 107 mL/min/{1.73_m2} Normal >60 [facility] Comment on above: Result Comment: Non- GFR Calc Performed By: #### L 501.2300, L501.5200, L500.2500, L100.0100 ####[facility] [address] [place], [address] Glucose [Mass/Vol] 172 mg/dL High 74-106 [facility] Comment on above: Result Comment: Fast ing Glucose result greater than or equal to 126 mg/dLsuggests DIABETES MELLITUS per A.D.A. criteria. Performed By: #### L 501.2300, L501.5200, L500.2500, L100.0100 ####[facility] [address] [place], [address] Potassium [Moles/Vol] 3.3 mmol/L Low 3.5-5.1 [facility] Comment on above: Performed By: #### L 501.2300, L501.5200, L500.2500, L100.0100 ####[facility] [address] [place], [address] Sodium [Moles/Vol] 138 mmol/L Normal 136-145 [facility] Comment on above: Performed By: #### L 501.2300, L501.5200, L500.2500, L100.0100 ####[facility] [address] [place], [address] Urea nitrogen [Mass/Vol] 12 mg/dL Normal 7-18 [facility] Comment on above: Performed By: #### L 501.2300, L501.5200, L500.2500, L100.0100 ####[facility] [address] [place], [address] Bedside Glucoseon 03-22-2024 FINGERSTICK GLU 248 mg/dL High 74-106 [facility] Comment on above: Result Comment: JAIME GEMENT OF PATIENT CARE PER NURSING PROTOCOL Performed By: #### L 501.080 ####[facility] [address] [place], [address] FINGERSTICK GLU 220 mg/dL High 74-106 [facility] Comment on above: Result Comment: JAIME GEMENT OF PATIENT CARE PER NURSING PROTOCOL Performed By: #### L 501.080 ####[facility] [address] [place], [address] FINGERSTICK GLU 228 mg/dL High 74-106 [facility] Comment on above: Result Comment: JAIME GEMENT OF PATIENT CARE PER NURSING PROTOCOL Performed By: #### L 501.080 ####[facility] [address] [place], [address] FINGERSTICK GLU 174 mg/dL High 74-106 [facility] Comment on above: Result Comment: JAIME GEMENT OF PATIENT CARE PER NURSING PROTOCOL Performed By: #### L 501.080 ####[facility] [address] [place], [address] CBC W/Diff, Automatedon 07-09 12-2023 Absolute Lymph 1.63 X10 3/uL Normal 0.83-4.51 [facility] Comment on above: Performed By: #### L 501.2300, L501.5200, L500.2500, L100.0100 ####[facility] [address] [place], [address] Absolute Neut 7.8 X10 3/uL High 2.0-7.7 [facility] Comment on above: Performed By: #### L 501.2300, L501.5200, L500.2500, L100.0100 ####[facility] [address] [place], [address] Basophils/100 WBC (Bld) 0.1 % Normal 0-1 [facility] Comment on above: Performed By: #### L 501.2300, L501.5200, L500.2500, L100.0100 ####[facility] [address] [place], [address] Eosinophils/100 WBC (Bld) 1.6 % Normal 0-5 [facility] Comment on above: Performed By: #### L 501.2300, L501.5200, L500.2500, L100.0100 ####[facility] [address] [place], [address] Erythrocyte distribution width (RBC) [Ratio] 12.7 % Normal 11.6-14.6 [facility] Comment on above: Performed By: #### L 501.2300, L501.5200, L500.2500, L100.0100 ####[facility] [address] [place], [address] Hematocrit (Bld) [Volume fraction] 38.9 % Normal 37-47 [facility] Comment on above: Performed By: #### L 501.2300, L501.5200, L500.2500, L100.0100 ####[facility] [address] [place], [address] Hemoglobin (Bld) [Mass/Vol] 12.6 g/dL Normal 12.0-15.0 [facility] Comment on above: Performed By: #### L 501.2300, L501.5200, L500.2500, L100.0100 ####[facility] [address] [place], [address] IG% 0.400 Normal 0.0-0.9 [facility] Comment on above: Result Comment: IG% - Immature Granulocytes (promyelocytes, myelocytes andmetamyelocytes) > 1% indicates that a LEFT SHIFT is Present. Performed By: #### L 501.2300, L501.5200, L500.2500, L100.0100 ####[facility] [address] [place], [address] Lymphocytes/100 WBC (Bld) 15.9 % Low 19-41 [facility] Comment on above: Performed By: #### L 501.2300, L501.5200, L500.2500, L100.0100 ####[facility] [address] [place], [address] MCH (RBC) [Entitic mass] 27.5 pg Normal 27.0-32.0 [facility] Comment on above: Performed By: #### L 501.2300, L501.5200, L500.2500, L100.0100 ####[facility] [address] [place], [address] MCHC (RBC) [Mass/Vol] 32.4 g/dL Normal 32-36 [facility] Comment on above: Performed By: #### L 501.2300, L501.5200, L500.2500, L100.0100 ####[facility] [address] [place], [address] MCV (RBC) [Entitic vol] 84.9 fL Normal 81-99 [facility] Comment on above: Performed By: #### L 501.2300, L501.5200, L500.2500, L100.0100 ####[facility] [address] [place], [address] Monocytes/100 WBC (Bld) 5.6 % Normal 0-10 [facility] Comment on above: Performed By: #### L 501.2300, L501.5200, L500.2500, L100.0100 ####[facility] [address] [place], [address] Neutrophils/100 WBC (Bld) 76.4 % High 47-70 [facility] Comment on above: Performed By: #### L 501.2300, L501.5200, L500.2500, L100.0100 ####[facility] [address] [place], [address] Nucleated RBC (Bld) [#/Vol] 0 10*3/uL Normal 0-5 [facility] Comment on above: Performed By: #### L 501.2300, L501.5200, L500.2500, L100.0100 ####[facility] [address] [place], [address] Platelet mean volume (Bld) [Entitic vol] 10.6 fL Normal 6.2-12.0 [facility] Comment on above: Performed By: #### L 501.2300, L501.5200, L500.2500, L100.0100 ####[facility] [address] [place], [address] Platelets (Bld) [#/Vol] 227 10*3/uL Normal 150-450 [facility] Comment on above: Performed By: #### L 501.2300, L501.5200, L500.2500, L100.0100 ####[facility] [address] [place], [address] RBC (Bld) [#/Vol] 4.58 10*6/uL Normal 4.2-5.4 [facility] Comment on above: Performed By: #### L 501.2300, L501.5200, L500.2500, L100.0100 ####[facility] [address] [place], [address] RDW SD 38.3 fl Normal 35.1-43.9 [facility] Comment on above: Performed By: #### L 501.2300, L501.5200, L500.2500, L100.0100 ####[facility] [address] [place], [address] WBC (Bld) [#/Vol] 10.3 10*3/uL Normal 4.4-11.0 [facility] Comment on above: Performed By: #### L 501.2300, L501.5200, L500.2500, L100.0100 ####[facility] [address] [place], [address] D-Dimer Quantitative (DVT/PE )on 03-22-2024 D-DIMER QUANT 1.56 FEU/ug/m Invalid Interpretation Code 0.27-0.49 [facility] Comment on above: Result Comment: D-Di riley ELEVATED (>0.49): Additional studies and clinicalassessments are indicated to conclude diagnosis of:Deep Vein Thrombosis (DVT) or Pulmonary Embolism (PE)CRITICAL VALUE VERIFIED. CALLED TO PRINCESS GARCIA03/22/24 Brandon Stanley.RESULTS READ BACK BY SAME . Performed By: #### L 300.8000 ####[facility] [address] [place], [address] Legionella Antigen Urineon 0 03-22-2024 LEGU Normal [facility] Comment on above: Performed By: #### M 300.4500, M300.4600 ####[facility] [address] [place], [address] Magnesiumon 03-22-2024 Magnesium [Mass/Vol] 1.7 mg/dL Normal 1.6-2.6 [facility] Comment on above: Performed By: #### L 501.2300, L501.5200, L500.2500, L100.0100 ####[facility] [address] [place], [address] Phosphoruson 03-22-2024 Phosphate [Mass/Vol] 2.1 mg/dL Low 2.5-4.9 [facility] Comment on above: Performed By: #### L 501.2300, L501.5200, L500.2500, L100.0100 ####[facility] [address] [place], [address] Strep pneumoniae Antig(UR,CS F)on 03-22-2024 STPAG Normal [facility] Comment on above: Performed By: #### M 300.4500, M300.4600 ####[facility] [address] [place], [address] Urine Cultureon 03-22-2024 URC Below infection leve l. 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, [address] Abdomen/Pelvis W IV Cont ONL Yon 03-21-2024 Abdomen/Pelvis W IV Cont ONLY Normal [facility] Basic Metabolic Profile (BMP )on 03-21-2024 BUN/CRE 18.9 RATIO Normal 10-20 [facility] Comment on above: Performed By: #### L 500.2500, L503.6005, L500.3400, L100.0100 ####[facility] [address] [place], [address] CA,Total 9.5 mg/dL Normal 8.5-10.1 [facility] Comment on above: Performed By: #### L 500.2500, L503.6005, L500.3400, L100.0100 ####[facility] [address] [place], [address] Chloride [Moles/Vol] 98 mmol/L Normal 98-107 [facility] Comment on above: Performed By: #### L 500.2500, L503.6005, L500.3400, L100.0100 ####[facility] [address] [place], [address] CO2 [Moles/Vol] 23.0 mmol/L Normal 21.0-32.0 [facility] Comment on above: Performed By: #### L 500.2500, L503.6005, L500.3400, L100.0100 ####[facility] [address] [place], [address] Creatinine [Mass/Vol] 1.06 mg/dL High 0.55-1.02 [facility] Comment on above: Result Comment: The validity of the calculated GFR GFRAA in patients over70 years has not been determined. Clinical correlation isessential. Performed By: #### L 500.2500, L503.6005, L500.3400, L100.0100 ####[facility] [address] [place], [address] ECRCL 61.66 ml/min Normal [facility] Comment on above: Performed By: #### L 500.2500, L503.6005, L500.3400, L100.0100 ####[facility] [address] [place], [address] EST GFR - AA 67 mL/min Normal >60 [facility] Comment on above: Result Comment: Afri can [place] GFR Calc Performed By: #### L 500.2500, L503.6005, L500.3400, L100.0100 ####[facility] [address] [place], [address] GAP 12 Normal 5-15 [facility] Comment on above: Performed By: #### L 500.2500, L503.6005, L500.3400, L100.0100 ####[facility] [address] [place], [address] GFR/1.73 sq M.predicted among non-blacks MDRD (S/P/Bld) [Vol rate/Area] 56 mL/min/{1.73_m2} Low >60 [facility] Comment on above: Result Comment: Non- GFR Calc Performed By: #### L 500.2500, L503.6005, L500.3400, L100.0100 ####[facility] [address] [place], [address] Glucose [Mass/Vol] 266 mg/dL High 74-106 [facility] Comment on above: Result Comment: Gluc ose result greater than or equal to 200 mg/dLsuggests DIABETES MELLITUS per A.D.A. criteria. Performed By: #### L 500.2500, L503.6005, L500.3400, L100.0100 ####[facility] [address] [place], [address] Potassium [Moles/Vol] 3.1 mmol/L Low 3.5-5.1 [facility] Comment on above: Performed By: #### L 500.2500, L503.6005, L500.3400, L100.0100 ####[facility] [address] [place], [address] Sodium [Moles/Vol] 133 mmol/L Low 136-145 [facility] Comment on above: Performed By: #### L 500.2500, L503.6005, L500.3400, L100.0100 ####[facility] [address] [place], [address] Urea nitrogen [Mass/Vol] 20 mg/dL High 7-18 [facility] Comment on above: Performed By: #### L 500.2500, L503.6005, L500.3400, L100.0100 ####[facility] [address] [place], [address] Bedside Glucoseon 03-21-2024 FINGERSTICK GLU 190 mg/dL High 74-106 [facility] Comment on above: Result Comment: JAIME GEMENT OF PATIENT CARE PER NURSING PROTOCOL Performed By: #### L 501.080 ####[facility] [address] [place], [address] FINGERSTICK GLU 220 mg/dL High 74-106 [facility] Comment on above: Result Comment: JAIME GEMENT OF PATIENT CARE PER NURSING PROTOCOL Performed By: #### L 501.080 ####[facility] [address] [place], [address] CBC W/Diff, Automatedon - Absolute Lymph 0.69 X10 3/uL Low 0.83-4.51 [facility] Comment on above: Performed By: #### L 500.2500, L503.6005, L500.3400, L100.0100 ####[facility] [address] [place], [address] Absolute Neut 16.5 X10 3/uL High 2.0-7.7 [facility] Comment on above: Performed By: #### L 500.2500, L503.6005, L500.3400, L100.0100 ####[facility] [address] [place], [address] Basophils/100 WBC (Bld) 0.3 % Normal 0-1 [facility] Comment on above: Performed By: #### L 500.2500, L503.6005, L500.3400, L100.0100 ####[facility] [address] [place], [address] Eosinophils/100 WBC (Bld) 0.2 % Normal 0-5 [facility] Comment on above: Performed By: #### L 500.2500, L503.6005, L500.3400, L100.0100 ####[facility] [address] [place], [address] Erythrocyte distribution width (RBC) [Ratio] 12.4 % Normal 11.6-14.6 [facility] Comment on above: Performed By: #### L 500.2500, L503.6005, L500.3400, L100.0100 ####[facility] [address] [place], [address] Hematocrit (Bld) [Volume fraction] 45.9 % Normal 37-47 [facility] Comment on above: Performed By: #### L 500.2500, L503.6005, L500.3400, L100.0100 ####[facility] [address] [place], [address] Hemoglobin (Bld) [Mass/Vol] 15.4 g/dL High 12.0-15.0 [facility] Comment on above: Performed By: #### L 500.2500, L503.6005, L500.3400, L100.0100 ####[facility] [address] [place], [address] IG% 0.600 Normal 0.0-0.9 [facility] Comment on above: Result Comment: IG% - Immature Granulocytes (promyelocytes, myelocytes andmetamyelocytes) > 1% indicates that a LEFT SHIFT is Present. Performed By: #### L 500.2500, L503.6005, L500.3400, L100.0100 ####[facility] [address] [place], [address] Lymphocytes/100 WBC (Bld) 3.9 % Low 19-41 [facility] Comment on above: Performed By: #### L 500.2500, L503.6005, L500.3400, L100.0100 ####[facility] [address] [place], [address] MCH (RBC) [Entitic mass] 27.5 pg Normal 27.0-32.0 [facility] Comment on above: Performed By: #### L 500.2500, L503.6005, L500.3400, L100.0100 ####[facility] [address] [place], [address] MCHC (RBC) [Mass/Vol] 33.6 g/dL Normal 32-36 [facility] Comment on above: Performed By: #### L 500.2500, L503.6005, L500.3400, L100.0100 ####[facility] [address] [place], [address] MCV (RBC) [Entitic vol] 82.1 fL Normal 81-99 [facility] Comment on above: Performed By: #### L 500.2500, L503.6005, L500.3400, L100.0100 ####[facility] [address] [place], [address] Monocytes/100 WBC (Bld) 2.4 % Normal 0-10 [facility] Comment on above: Performed By: #### L 500.2500, L503.6005, L500.3400, L100.0100 ####[facility] [address] [place], [address] Neutrophils/100 WBC (Bld) 92.6 % High 47-70 [facility] Comment on above: Performed By: #### L 500.2500, L503.6005, L500.3400, L100.0100 ####[facility] [address] [place], [address] Nucleated RBC (Bld) [#/Vol] 0 10*3/uL Normal 0-5 [facility] Comment on above: Performed By: #### L 500.2500, L503.6005, L500.3400, L100.0100 ####[facility] [address] [place], [address] Platelet mean volume (Bld) [Entitic vol] 11.2 fL Normal 6.2-12.0 [facility] Comment on above: Performed By: #### L 500.2500, L503.6005, L500.3400, L100.0100 ####[facility] [address] [place], [address] Platelets (Bld) [#/Vol] 306 10*3/uL Normal 150-450 [facility] Comment on above: Performed By: #### L 500.2500, L503.6005, L500.3400, L100.0100 ####[facility] [address] [place], [address] RBC (Bld) [#/Vol] 5.59 10*6/uL High 4.2-5.4 [facility] Comment on above: Performed By: #### L 500.2500, L503.6005, L500.3400, L100.0100 ####[facility] [address] [place], [address] RDW SD 37.2 fl Normal 35.1-43.9 [facility] Comment on above: Performed By: #### L 500.2500, L503.6005, L500.3400, L100.0100 ####[facility] [address] [place], [address] WBC (Bld) [#/Vol] 17.8 10*3/uL High 4.4-11.0 [facility] Comment on above: Performed By: #### L 500.2500, L503.6005, L500.3400, L100.0100 ####[facility] [address] [place], [address] CTA Chest W/WO Contraston CTA Chest W/WO Contrast Normal [facility] Chest 1 View (Portable)on Chest 1 View (Portable) Normal [facility] Echo Completeon 03-21-2024 Echo Complete Normal [facility] Emergency Department Summary on 03-21-2024 Emergency Department Summary Normal [facility] H AND P Exam - Hospitaliston 03-21-2024 H&P Exam - Hospitalist Normal [facility] L501.4020on 03-21-2024 TROPONIN-I HS 5 pg/mL Normal 3.0-54.0 [facility] Comment on above: Order Comment: 'TROP ' Serial specimen #1, #2 or #3: 1 Result Comment: Melissa liu Note: New Test Units and Gender Specific Reference Ranges. For more information see Policy Stat Procedure [place] High Sensitivity Troponin (TNIH) and attachments. Performed By: #### L 501.4020 ####[facility] [address] [facility] [place], [address] Lactic Acidon 03-21-2024 Lactate [Moles/Vol] 2.1 mmol/L Invalid Interpretation Code 0.4-1.9 [facility] Comment on above: Result Comment: Crit ical Result(s) Called at: 17:06:48 03/21/2024 by: KELLY Stacy. Results read back by same. Performed By: #### L 503.6005 ####[facility] [address] [place], [address] Lactate [Moles/Vol] 2.9 mmol/L Invalid Interpretation Code 0.4-1.9 [facility] Comment on above: Order Comment: Y Result Comment: Crit ical Result(s) Called at: 11:15:04 03/21/2024 by: KELLY Holland. Results read back by same. Performed By: #### L 500.2500, L503.6005, L500.3400, L100.0100 ####[facility] [address] [place], [address] Liver Profileon 03-21-2024 Albumin [Mass/Vol] 3.8 g/dL Normal 3.2-5.0 [facility] Comment on above: Performed By: #### L 500.2500, L503.6005, L500.3400, L100.0100 ####[facility] [address] [place], [address] ALK P 122 U/L High 45-117 [facility] Comment on above: Performed By: #### L 500.2500, L503.6005, L500.3400, L100.0100 ####[facility] [address] [place], [address] ALT [Catalytic activity/Vol] 23 U/L Normal 13-56 [facility] Comment on above: Performed By: #### L 500.2500, L503.6005, L500.3400, L100.0100 ####[facility] [address] [place], [address] AST [Catalytic activity/Vol] 38 U/L High 15-37 [facility] Comment on above: Performed By: #### L 500.2500, L503.6005, L500.3400, L100.0100 ####[facility] [address] [place], [address] Bilirubin [Mass/Vol] 0.40 mg/dL Normal 0.20-1.00 [facility] Comment on above: Result Comment: For patients on eltrombopag therapy, use of Dimension [place] TBIL is not recommended. Performed By: #### L 500.2500, L503.6005, L500.3400, L100.0100 ####[facility] [address] [place], [address] Bilirubin.direct [Mass/Vol] 0.12 mg/dL Normal 0.00-0.30 [facility] Comment on above: Performed By: #### L 500.2500, L503.6005, L500.3400, L100.0100 ####[facility] [address] [place], [address] Globulin (S) [Mass/Vol] 4.1 g/dL Normal 2.2-4.2 [facility] Comment on above: Performed By: #### L 500.2500, L503.6005, L500.3400, L100.0100 ####[facility] [address] [place], [address] T PROT 7.9 g/dL Normal 6.4-8.2 [facility] Comment on above: Performed By: #### L 500.2500, L503.6005, L500.3400, L100.0100 ####[facility] [address] [place], [address] M100.678on 03-21-2024 M100.678 Normal Reference Ran ge = Negative FLUABV+SARS-CoV-2+RSV Pnl Resp NICOLE+probe GeneXpert Instrument, PCR method SARS-CoV-2 (COVID 19) Negative INFLUENZA A Negative INFLUENZA B Negative RSV PCR Negative Normal [facility] Comment on above: Performed By: #### L 400.0001, M100.678 ####[facility] [address] [place], [address] Urinalysis, Completeon 03-21 BACTERIA 1+ /hpf Normal None Seen [facility] Comment on above: Order Comment: COLOR OF URINE MAY AFFECT DIPSTICK RESULTS.CLEAN CATCH Performed By: #### L 400.0001, M100.678 ####[facility] [address] [place], [address] EPI,SQUAMOUS 0-5 SEEN Normal 5-10 [facility] Comment on above: Order Comment: COLOR OF URINE MAY AFFECT DIPSTICK RESULTS.CLEAN CATCH Performed By: #### L 400.0001, M100.678 ####[facility] [address] [place], [address] WBC 5-10 SEEN Normal 0-5 [facility] Comment on above: Order Comment: COLOR OF URINE MAY AFFECT DIPSTICK RESULTS.CLEAN CATCH Performed By: #### L 400.0001, M100.678 ####[facility] [address] [place], [address] Mucus Ql (Urine sed) 0 SEEN Normal [facility] Comment on above: Order Comment: COLOR OF URINE MAY AFFECT DIPSTICK RESULTS.CLEAN CATCH Performed By: #### L 400.0001, M100.678 ####[facility] [address] [place], [address] RBC 0 SEEN Normal 0-5 [facility] Comment on above: Order Comment: COLOR OF URINE MAY AFFECT DIPSTICK RESULTS.CLEAN CATCH Performed By: #### L 400.0001, M100.678 ####[facility] [address] [place], [address] Venous Duplex US - Edwardo Extre mon 03-21-2024 Venous Duplex US - Edwardo Extrem Normal [facility] Bacteria Ur Culton Bacteria identified Cx Nom (U) Abnormal [facility] Comment on above: Performed By: #### 6 30-4 ####[facility] LABCLIA [id number] [facility] [id number] [place] [address] [place] CNOVon 03-20-2024 CNOV Normal [facility] CNPNon 03-20-2024 CNPN Normal [facility] Cardiology Visit Reporton Cardiology Visit Report Normal [facility] UA DIP, URINE (POC)on 2023 BILIRUBIN UA (POCT) Negative Negative [facility] CLARITY UA (POCT) Clear [facility] COLOR UA (POCT) Yellow [facility] GLUCOSE UA (POCT) Negative Negative mg/dL [facility] Hemoglobin Ql (U) Negative Negative [facility] Interpretation and review of laboratory results Abnormal [facility] KETONE UA (POCT) Negative Negative mg/dL [facility] LEUKOCYTES UA (POCT) Small Abnormal [facility] NITRITE UA (POCT) Positive Abnormal Negative [facility] PH UA (POCT) 5.0 4.5 - 8.0 [facility] Protein Ql (U) Negative Negative mg/dL [facility] SPECIFIC GRAVITY UA (POCT) 1.020 1.005 - 1.030 [facility] UROBILINOGEN UA (POCT) 0.2 Leonie l E.U./dL [facility] Location:[address], [place], [place], [address] [place] [address] POINT OF CARE [facility] Gastroenterology Visit Repor ton 03-09-2024 Gastroenterology Visit Report Normal [facility] No Panel Informationon 03-04 Radiology Study observation (narrative) [facility] XR Chest PA and Lateralon IMPRESSION: Acute and/or chronic probable bronchitis. Peribronchial cuffing similar to recent CT Kyphoscoliosis more pronounced on nonweightbearing radiography than recumbent CT, incidentally 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: OLIVE Transcribe Date/Time: Mar 04 2024 3:28P Dictated by : BEKAH MARX MD This examination was interpreted and the report reviewed and electronically signed by: BEKAH MARX MD on Mar 04 2024 3:36PM [facility] DIVISION OF RADIOLOGY * * *Final Report* * * DATE OF EXAM: Mar 04 2024 3:03PM WOX [id number] - XR CHEST 2V FRONTAL/LAT / PROCEDURE REASON: Acute cough * * * * Physician Interpretation * * * * EXAMINATION: CHEST RADIOGRAPH (2 VIEW FRONTAL & LATERAL) CLINICAL HISTORY: Acute cough MQ: XC2_6 EXAM DATE/TIME: 03/04/2024 3:03 PM COMPARISON: CT lung screening 11/22/2023, chest radiograph 05/28/2023 RESULT: Lines, tubes, and devices: None. Lungs and pleura: Linear atelectasis lingula also on CT 11/22/2023. No evident consolidation or pneumothorax. Clear costophrenic angles. Normal size well-defined peripheral mid and upper lung vessels. Peribronchial cuffing also present on previous CT Cardiomediastinal silhouette: Similar unremarkable contours. Normal heart size. Bones and soft tissues: Preexistent kyphoscoliosis more pronounced on weightbearing radiographs than on CT DIVISION OF RADIOLOGY Provider, Eliu puckett [place] - 03/04/2024 * * *Final Report* * * DATE OF EXAM: Mar 04 2024 3:03PM WOX [id number] - XR CHEST 2V FRONTAL/LAT / PROCEDURE REASON: Acute cough * * * * Physician Interpretation * * * * EXAMINATION: CHEST RADIOGRAPH (2 VIEW FRONTAL & LATERAL) CLINICAL HISTORY: Acute cough MQ: XC2_6 EXAM DATE/TIME: 03/04/2024 3:03 PM COMPARISON: CT lung screening 11/22/2023, chest radiograph 05/28/2023 RESULT: Lines, tubes, and devices: None. Lungs and pleura: Linear atelectasis lingula also on CT 11/22/2023. No evident consolidation or pneumothorax. Clear costophrenic angles. Normal size well-defined peripheral mid and upper lung vessels. Peribronchial cuffing also present on previous CT Cardiomediastinal silhouette: Similar unremarkable contours. Normal heart size. Bones and soft tissues: Preexistent kyphoscoliosis more pronounced on weightbearing radiographs than on CT IMPRESSION IMPRESSION: Acute and/or chronic probable bronchitis. Peribronchial cuffing similar to recent CT Kyphoscoliosis more pronounced on nonweightbearing radiography than recumbent CT, incidentally 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: OLIVE Transcribe Date/Time: Mar 04 2024 3:28P Dictated by : BEKAH MARX MD This examination was interpreted and the report reviewed and electronically signed by: BEKAH MARX MD on Mar 04 2024 3:36PM [facility] XR Elbow - right AP and Late ral and obliqueon 03-04-2024 IMPRESSION: 1. No acute osseous findings or joint effusion 2. Swelling of ulnar olecranon bursal region 3. Distal humeral hypertrophy pattern of chronic medial and lateral epicondylosis 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: OLIVE Transcribe Date/Time: Mar 04 2024 3:36P Dictated by : BEKAH MARX MD This examination was interpreted and the report reviewed and electronically signed by: BEKAH MARX MD on Mar 04 2024 3:42PM [facility] DIVISION OF RADIOLOGY * * *Final Report* * * DATE OF EXAM: Mar 04 2024 3:03PM WOX [id number] - XR ELBOW 3V AP/LAT/OTHER RT / PROCEDURE REASON: Elbow swelling, right * * * * Physician Interpretation * * * * EXAMINATION: XR ELBOW 3V AP/LAT/OTHER RT HISTORY: hit right elbow on counter and has swelling posterior side Elbow swelling, right . TECHNIQUE: XR ELBOW 3V AP/LAT/OTHER RT Laterality: RIGHT Number of different views (projections): 3 M: XB_1 COMPARISON: Unavailable remote previous studies RESULT: 3 images including radial head view. Soft tissue swelling ulnar olecranon bursal region. No joint effusion. No identified acute osseous abnormality. Moderate hypertrophy medial and lateral humeral epicondyles. DIVISION OF RADIOLOGY Provider, [facility] - 03/04/2024 * * *Final Report* * * DATE OF EXAM: Mar 04 2024 3:03PM WOX [id number] - XR ELBOW 3V AP/LAT/OTHER RT / PROCEDURE REASON: Elbow swelling, right * * * * Physician Interpretation * * * * EXAMINATION: XR ELBOW 3V AP/LAT/OTHER RT HISTORY: hit right elbow on counter and has swelling posterior side Elbow swelling, right . TECHNIQUE: XR ELBOW 3V AP/LAT/OTHER RT Laterality: RIGHT Number of different views (projections): 3 M: XB_1 COMPARISON: Unavailable remote previous studies RESULT: 3 images including radial head view. Soft tissue swelling ulnar olecranon bursal region. No joint effusion. No identified acute osseous abnormality. Moderate hypertrophy medial and lateral humeral epicondyles. IMPRESSION IMPRESSION: 1. No acute osseous findings or joint effusion 2. Swelling of ulnar olecranon bursal region 3. Distal humeral hypertrophy pattern of chronic medial and lateral epicondylosis 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: [facility] Transcribe Date/Time: Mar 04 2024 3:36P Dictated by : BEKAH MARX MD This examination was interpreted and the report reviewed and electronically signed by: BEKAH MARX MD on Mar 04 2024 3:42PM [facility] XR Elbow - right AP and Late ral and obliqueOrdered By: Ccf Provider on 03-04-2024 [facility] Surgery Visit Reporton 02-27 Surgery Visit Report Normal [facility] XR Foot - left AP and Latera l and obliqueon 02-24-2024 IMPRESSION: No acute osseous abnormality 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: OLIVE Transcribe Date/Time: Feb 24 2024 4:25P Dictated by : YENIFER ROLDAN MD This examination was interpreted and the report reviewed and electronically signed by: YENIFER ROLDAN MD on Feb 24 2024 4:33PM EST DIVISION OF RADIOLOGY * * *Final Report* * * DATE OF EXAM: Feb 18 2024 3:50PM WOX [id number] - XR FOOT 3V AP/LAT/OBL LT / PROCEDURE REASON: Injury of toe on left foot, initial encounter * * * * Physician Interpretation * * * * EXAMINATION: XR FOOT 3V AP/LAT/OBL LT CLINICAL HISTORY: Left foot pain Technique: XR FOOT 3V AP/LAT/OBL LT -- LEFT with 3 views on 3 images Comparison: X-ray bilateral feet 07/16/2018 RESULT: No acute fracture or dislocation. Joint spaces are maintained. Plantar calcaneal spur. DIVISION OF RADIOLOGY Provider, [facility] - 02/24/2024 * * *Final Report* * * DATE OF EXAM: Feb 18 2024 3:50PM WOX [id number] - XR FOOT 3V AP/LAT/OBL LT / PROCEDURE REASON: Injury of toe on left foot, initial encounter * * * * Physician Interpretation * * * * EXAMINATION: XR FOOT 3V AP/LAT/OBL LT CLINICAL HISTORY: Left foot pain Technique: XR FOOT 3V AP/LAT/OBL LT -- LEFT with 3 views on 3 images Comparison: X-ray bilateral feet 07/16/2018 RESULT: No acute fracture or dislocation. Joint spaces are maintained. Plantar calcaneal spur. IMPRESSION IMPRESSION: No acute osseous abnormality 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: OLIVE Transcribe Date/Time: Feb 24 2024 4:25P Dictated by : YENIFER ROLDAN MD This examination was interpreted and the report reviewed and electronically signed by: YENIFER ROLDAN MD on Feb 24 2024 4:33PM EST [facility] XR Foot - left AP and Latera l and obliqueOrdered By: Ccf Provider on 02-24-2024 [facility] XR Foot - left AP and Latera l and obliqueon 02-18-2024 Radiology Study observation (narrative) [facility] C-REACTIVE PROTEIN (CRP)on 0 12-07-2023 CRP [Mass/Vol] 0.5 mg/dL <0.9 mg/dL [facility] CK CREATINE KINASEon 024 CK [Catalytic activity/Vol] 260 U/L High 42 - 196 U/L [facility] CORTISOL BLDon 12-07-2023 Cortisol [Mass/Vol] 10.4 ug/dL 4.8 - 19 .5 ug/dL [facility] ESR Westergren method (Bld) [Velocity]on 12-07-2023 ESR (Bld) [Velocity] 17 mm/h 0 - 20 mm/hr Cl [facility] T3 FREE BLDon 12-07-2023 Free T3 [Mass/Vol] 2.9 pg/mL 2.3 - 4.1 pg/mL [facility] T4 FREE/FREE THYROXon 2023 Free T4 [Mass/Vol] 0.9 ng/dL 0.9 - 1.7 ng/dL [facility] TSH BLDon 12-07-2023 TSH Qn 0.899 m[IU]/L 0.270 - 4.200 mIU/L [facility] Thin prep Papanicolaou smear with manual screeningOrdered By: Uriel Friend on 11-28-2023 Thin prep Papanicolaou smear with manual screening 210 mg/dL 74-106 [facility] Comment on above: MANAGEMENT OF PATIEN T CARE PER NURSING PROTOCOL CT Chest for screening co ntraston 11-22-2023 [facility] NITRIC OXIDE, EXHALEDon 03-0 [facility] SPIROMETRY WITH DILATOR IF O BSTRUCTEDon 11-11-2023 [id number]% PRE (L/S) 1.13 L/S [facility] FEV1 PRE (L) 1.99 L [facility] FEV1/FVC PRE (%) 69 % [facility] FVC PRE (L) 2.90 L [facility] PEF PRE (L/S) 5.40 L/S [facility] Absolute lymphocyte countOrd ered By: Jono Castro on 09-20-2023 Lymphocytes Auto (Unsp spec) [#/Vol] 3.50 10*3/uL 0.83-4.51 [facility] Basophil percentageOrdered B y: Jono Castro on 09-20-2023 Basophils/100 WBC (Bld) 0.6 % 0-1 [facility] Chloride [Moles/Vol] 105 mmol/L 98-107 [facility] Eosinophils/100 WBC (Bld) 2.4 % 0-5 [facility] Glucose [Mass/Vol] 163 mg/dL 74-106 [facility] Comment on above: Fasting Glucose resu lt greater than or equal to 126 mg/dL suggests DIABETES MELLITUS per A.D.A. criteria. Neutrophils (Bld) [#/Vol] 5.2 10*3/uL 2.0-7.7 [facility] Neutrophils/100 WBC (Bld) 54.3 % 47-70 [facility] Potassium [Moles/Vol] 3.6 mmol/L 3.5-5.1 [facility] Sodium [Moles/Vol] 140 mmol/L 136-145 [facility] WBC (Bld) [#/Vol] 9.6 10*3/uL 4.4-11.0 [facility] Blood erythrocytes count (nu mber/volume)Ordered By: Jono Castro on 09-20-2023 RBC (Bld) [#/Vol] 5.24 10*6/uL 4.2-5.4 [facility] Blood hemoglobin measurement (mass/volume)Ordered By: Jono Castro on 09-20-2023 Hemoglobin (Bld) [Mass/Vol] 14.9 g/dL 12.0-15.0 [facility] Blood lymphocytes/100 leukoc ytesOrdered By: Jono Castro on 09-20-2023 Lymphocytes/100 WBC (Bld) 36.5 % 19-41 [facility] Blood monocytes/100 leukocyt esOrdered By: Jono Castro on 09-20-2023 Monocytes/100 WBC (Bld) 5.8 % 0-10 [facility] Blood platelet mean volumeOr dered By: Jono Castro on 09-20-2023 Platelet mean volume (Bld) [Entitic vol] 9.7 fL 6.2-12.0 [facility] Determination of erythrocyte mean corpuscular volume (MCV)Ordered By: Jono Castro on 09-20-2023 MCV (RBC) [Entitic vol] 83.4 fL 81-99 [facility] Erythrocyte sedimentation ra teOrdered By: Jono Castro on 09-20-2023 ESR (Bld) [Velocity] 8 mm/h 0-30 [facility] Hematocrit Auto (Bld) [Volum e fraction]Ordered By: Jono Castro on 09-20-2023 Hematocrit (Bld) [Volume fraction] 43.7 % 37-47 [facility] Laboratory - Chemistry and C hemistry - challengeOrdered By: Jono Castro on 09-20-2023 CO2 [Moles/Vol] 28.0 mmol/L 21.0-32.0 [facility] Urea nitrogen/Creatinine [Mass ratio] 19.5 mg/mg 10-20 [facility] Laboratory - Hematology and Cell countsOrdered By: Jono Castro on 09-20-2023 Erythrocyte distribution width (RBC) [Entitic vol] 42.4 fL 35.1-43.9 [facility] Erythrocyte distribution width (RBC) [Ratio] 14.0 % 11.6-14.6 [facility] Immature granulocytes/100 WBC (Bld) 0.400 % 0.0-0.9 [facility] Comment on above: IG% - Immature Granu locytes (promyelocytes, myelocytes and metamyelocytes) > 1% indicates that a LEFT SHIFT is Present. MCH (RBC) [Entitic mass] 28.4 pg 27.0-32.0 [facility] Nucleated RBC/100 WBC (Bld) [Ratio] 0 % 0-5 [facility] MCHC Auto (RBC) [Mass/Vol]Or dered By: Jono Castro on 09-20-2023 MCHC (RBC) [Mass/Vol] 34.1 g/dL 32-36 [facility] No Panel InformationOrdered By: Jono Castro on 09-20-2023 Estimated Creatinine Clearance Calc 117.10 ml/min [facility] Estimated GFR (MDRD) Amer 139 mL/min >60 [facility] Comment on above: GFR Calc Estimated GFR (MDRD) Non-Af Amer 115 mL/min >60 [facility] Comment on above: Non- GFR Calc Platelets bldOrdered By: Alexandr Castro on 09-20-2023 Platelets (Bld) [#/Vol] 312 10*3/uL 150-450 [facility] Serum or plasma calcium pradip urement (mass/volume)Ordered By: Jono Castro on 09-20-2023 Calcium [Mass/Vol] 9.1 mg/dL 8.5-10.1 [facility] Serum or plasma creatinine m easurement (mass/volume)Ordered By: Jono Castro on 09-20-2023 Creatinine [Mass/Vol] 0.56 mg/dL 0.55-1.02 [facility] Comment on above: The validity of the calculated GFR & GFRAA in patients over 70 years has not been determined. Clinical correlation is essential. Serum or plasma urea nitroge n measurement (mass/volume)Ordered By: Jono Castro on 09-20-2023 Urea nitrogen [Mass/Vol] 11 mg/dL 7-18 [facility] Thin prep Papanicolaou smear with manual screeningOrdered By: Jono Castro on 09-20-2023 Thin prep Papanicolaou smear with manual screening 7 5-15 [facility] XR Shoulder - right 3 Viewso n 07-25-2023 IMPRESSION: No acute fracture or dislocation. Mild right AC joint osteoarthritis. 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: [facility] Transcribe Date/Time: Jul 25 2023 8:55A Dictated by : NETTIE HENDERSON MD This examination was interpreted and the report reviewed and electronically signed by: NETTIE HENDERSON MD on Jul 25 2023 8:57AM [facility] DIVISION OF RADIOLOGY * * *Final Report* * * DATE OF EXAM: Jul 23 2023 5:06PM WOX 5253 - XR SHLDR >/=3V AP/PANFILO AP/OTHR RT / PROCEDURE REASON: Acute pain of right shoulder * * * * Physician Interpretation * * * * EXAM(s): XR SHLDR >/=3V AP/PANFILO AP/OTHR RT EXAM DATE/TIME: 07/23/2023 5:06 PM HISTORY: 63 years old Clinical information: Acute pain of right shoulder Posterior right shoulder pain x 5 days without injury Rule out DJD of shoulder as well as AC joint, rotator cuff pathology. TECHNIQUE: Images: XR SHLDR >/=3V AP/PANFILO AP/OTHR RT Comparison: Chest radiograph 05/28/2023. RESULT: Findings: Bone density appears well-preserved. No fractures or dislocations are seen. Mild degenerative changes of the acromial clavicular joint. Glenohumeral joint space is maintained without degenerative proliferation. The humeral head is not high riding. DIVISION OF RADIOLOGY [facility] * * *Final Report* * * DATE OF EXAM: Jul 23 2023 5:06PM WOX 5253 - XR SHLDR >/=3V AP/PANFILO AP/OTHR RT / PROCEDURE REASON: Acute pain of right shoulder * * * * Physician Interpretation * * * * EXAM(s): XR SHLDR >/=3V AP/PANFILO AP/OTHR RT EXAM DATE/TIME: 07/23/2023 5:06 PM HISTORY: 63 years old Clinical information: Acute pain of right shoulder Posterior right shoulder pain x 5 days without injury Rule out DJD of shoulder as well as AC joint, rotator cuff pathology. TECHNIQUE: Images: XR SHLDR >/=3V AP/PANFILO AP/OTHR RT Comparison: Chest radiograph 05/28/2023. RESULT: Findings: Bone density appears well-preserved. No fractures or dislocations are seen. Mild degenerative changes of the acromial clavicular joint. Glenohumeral joint space is maintained without degenerative proliferation. The humeral head is not high riding. IMPRESSION IMPRESSION: No acute fracture or dislocation. Mild right AC joint osteoarthritis. 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: [facility] Transcribe Date/Time: Jul 25 2023 8:55A Dictated by : NETTIE HENDERSON MD This examination was interpreted and the report reviewed and electronically signed by: NETTIE HENDERSON MD on Jul 25 2023 8:57AM EST [facility] XR Shoulder - right 3 ViewsO rdered By: Ccf Provider on 07-25-2023 [facility] XR SHOULDER GENERAL 3V OR MO RE AP/TRUE AP/OTHER RIGHTon 07-23-2023 [facility] XR Shoulder - right 3 Viewso n 07-23-2023 Radiology Study observation (narrative) [facility] Absolute lymphocyte countOrd ered By: Corey Rubi on 06-27-2023 Lymphocytes Auto (Unsp spec) [#/Vol] 3.45 10*3/uL 0.83-4.51 [facility] Basophil percentageOrdered B y: Corey Rubi on 06-27-2023 Basophils/100 WBC (Bld) 0.3 % 0-1 [facility] Chloride [Moles/Vol] 105 mmol/L 98-107 [facility] Eosinophils/100 WBC (Bld) 4.5 % 0-5 [facility] Glucose [Mass/Vol] 181 mg/dL 74-106 [facility] Comment on above: Fasting Glucose resu lt greater than or equal to 126 mg/dL suggests DIABETES MELLITUS per A.D.A. criteria. Neutrophils (Bld) [#/Vol] 2.8 10*3/uL 2.0-7.7 [facility] Neutrophils/100 WBC (Bld) 40.1 % 47-70 [facility] Potassium [Moles/Vol] 3.3 mmol/L 3.5-5.1 [facility] Sodium [Moles/Vol] 139 mmol/L 136-145 [facility] WBC (Bld) [#/Vol] 7.1 10*3/uL 4.4-11.0 [facility] Blood erythrocytes count (nu mber/volume)Ordered By: Corey Rubi on 06-27-2023 RBC (Bld) [#/Vol] 5.02 10*6/uL 4.2-5.4 [facility] Blood hemoglobin measurement (mass/volume)Ordered By: Corey Rubi on 06-27-2023 Hemoglobin (Bld) [Mass/Vol] 14.3 g/dL 12.0-15.0 [facility] Blood lymphocytes/100 leukoc ytesOrdered By: Corey Rubi on 06-27-2023 Lymphocytes/100 WBC (Bld) 48.9 % 19-41 [facility] Blood monocytes/100 leukocyt esOrdered By: Corey Rubi on 06-27-2023 Monocytes/100 WBC (Bld) 5.9 % 0-10 [facility] Blood platelet mean volumeOr dered By: Corey Rubi on 06-27-2023 Platelet mean volume (Bld) [Entitic vol] 9.6 fL 6.2-12.0 [facility] Determination of erythrocyte mean corpuscular volume (MCV)Ordered By: Corey Rubi on 06-27-2023 MCV (RBC) [Entitic vol] 84.3 fL 81-99 [facility] Hematocrit Auto (Bld) [Volum e fraction]Ordered By: Corey Rubi on 06-27-2023 Hematocrit (Bld) [Volume fraction] 42.3 % 37-47 [facility] Laboratory - Chemistry and C hemistry - challengeOrdered By: Corey Rubi on 06-27-2023 CO2 [Moles/Vol] 26.0 mmol/L 21.0-32.0 [facility] Natriuretic peptide B (Bld) [Mass/Vol] 68.4 pg/mL 0-100 [facility] Urea nitrogen/Creatinine [Mass ratio] 20.5 mg/mg 10-20 [facility] Laboratory - Hematology and Cell countsOrdered By: Corey Rubi on 06-27-2023 Erythrocyte distribution width (RBC) [Entitic vol] 37.5 fL 35.1-43.9 [facility] Erythrocyte distribution width (RBC) [Ratio] 12.5 % 11.6-14.6 [facility] Immature granulocytes/100 WBC (Bld) 0.300 % 0.0-0.9 [facility] Comment on above: IG% - Immature Granu locytes (promyelocytes, myelocytes and metamyelocytes) > 1% indicates that a LEFT SHIFT is Present. MCH (RBC) [Entitic mass] 28.5 pg 27.0-32.0 [facility] Nucleated RBC/100 WBC (Bld) [Ratio] 0 % 0-5 [facility] MCHC Auto (RBC) [Mass/Vol]Or dered By: Corey Rubi on 06-27-2023 MCHC (RBC) [Mass/Vol] 33.8 g/dL 32-36 [facility] No Panel InformationOrdered By: Corey Rubi on 06-27-2023 Estimated Creatinine Clearance Calc 91.36 ml/min [facility] Estimated GFR (MDRD) Amer 133 mL/min >60 [facility] Comment on above: GFR Calc Estimated GFR (MDRD) Non-Af Amer 110 mL/min >60 [facility] Comment on above: Non- GFR Calc Troponin I High Sensitivity 6 pg/mL 3.0-54.0 [facility] Comment on above: Please Note: New Evelyn t Units and Gender Specific Reference Ranges. For more information see Policy Stat Procedure [place] High Sensitivity Troponin (TNIH) and attachments. Platelets bldOrdered By: Devaughn Rubi on 06-27-2023 Platelets (Bld) [#/Vol] 326 10*3/uL 150-450 [facility] Serum or plasma calcium pradip urement (mass/volume)Ordered By: Corey Rubi on 06-27-2023 Calcium [Mass/Vol] 8.6 mg/dL 8.5-10.1 [facility] Serum or plasma creatinine m easurement (mass/volume)Ordered By: Corey Rubi on 06-27-2023 Creatinine [Mass/Vol] 0.59 mg/dL 0.55-1.02 [facility] Comment on above: The validity of the calculated GFR & GFRAA in patients over 70 years has not been determined. Clinical correlation is essential. Serum or plasma urea nitroge n measurement (mass/volume)Ordered By: Corey Rubi on 06-27-2023 Urea nitrogen [Mass/Vol] 12 mg/dL 7-18 [facility] Thin prep Papanicolaou smear with manual screeningOrdered By: Corey Rubi on 06-27-2023 Thin prep Papanicolaou smear with manual screening 8 5-15 [facility] No Panel InformationOrdered By: Uriel Caceres on 06-20-2023 Stool Pancreatic Elastase 145 >200 [facility] Comment on above: Result Units: ug Tammy st./g Severe Pancreatic Insufficiency: <100 Moderate Pancreatic Insufficiency: 100 - 200 Normal: >200Performed at: - [facility] [address] [id number] Director: Aung Araujo MD, Phone: [phone] Laboratory - Miscellaneous t estsOrdered By: Uriel Caceres on 06-19-2023 Service comment (Unsp spec) [Interp] Comment . [facility] Comment on above: Levels of Specific I gE Class Description of Class ----- < 0.10 0 Negative 0.10 - 0.31 0/I Equivocal/Low 0.32 - 0.55 I Low 0.56 - 1.40 II Moderate 1.41 - 3.90 III High 3.91 - 19.00 IV Very High 19.01 - 100.00 V Very High >100.00 [facility] No Panel InformationOrdered By: Uriel Caceres on 06-19-2023 Scallop Allergen <0.10 kU/L Class 0 [facility] Sesame Seed Allergen IgE Antibody <0.10 kU/L Class 0 [facility] Comment on above: Performed at: [address] [id number] Director: Aung Araujo MD, Phone: [phone] Shrimp Allergen <0.10 kU/L Class 0 [facility] Serum black walnut IgE antib suze assay (units/volume)Ordered By: Uriel Caceres on 06-19-2023 Black [place] IgE Qn (S) <0.10 kU/L Class 0 [facility] Serum clam IgE antibody assa y (units/volume)Ordered By: Uriel Caceres on 06-19-2023 Clam IgE Qn (S) <0.10 kU/L Class 0 [facility] Serum codfish IgE antibody a ssay (units/volume)Ordered By: Uriel Caceres on 06-19-2023 Codfish IgE Qn (S) <0.10 kU/L Class 0 [facility] Serum corn IgE antibody assa y (units/volume)Ordered By: Uriel Caceres on 06-19-2023 [place] IgE Qn (S) <0.10 kU/L Class 0 [facility] Serum cow milk IgE antibody assay (units/volume)Ordered By: Uriel Caceres on 06-19-2023 Cow milk IgE Qn (S) 0.49 kU/L Class I [facility] Serum egg white IgE antibody assay (units/volume)Ordered By: Uriel Caceres on 06-19-2023 Egg white IgE Qn (S) 0.19 kU/L Class 0/I [facility] Serum peanut IgE antibody as say (units/volume)Ordered By: Uriel Caceres on 06-19-2023 Peanut IgE Qn (S) 0.44 kU/L Class I [facility] Serum soybean IgE antibody a ssay (units/volume)Ordered By: Uriel Caceres on 06-19-2023 Soybean IgE Qn (S) <0.10 kU/L Class 0 [facility] Serum wheat IgE antibody ass ay (units/volume)Ordered By: Uriel Caceres on 06-19-2023 Wheat IgE Qn (S) <0.10 kU/L Class 0 [facility] Culture, urineOrdered By: Blake Morales on 06-10-2023 Bacteria identified Cx Nom (U) Escherichia coli [facility] Bacteria identified Cx Nom (U) Escherichia coli [facility] C-REACTIVE PROTEIN (CRP)on 0 06-01-2023 CRP [Mass/Vol] <0.9 mg/dL [facility] Comprehensive metabolic 2000 panelon 06-01-2023 Albumin [Mass/Vol] 4.3 g/dL 3.9 - 4.9 g/dL [facility] ALP [Catalytic activity/Vol] 84 U/L 34 - 123 U/L [facility] ALT [Catalytic activity/Vol] 11 U/L 7 - 38 U/L [facility] Anion gap [Moles/Vol] 14 mmol/L 9 - 18 mmol/L [facility] AST [Catalytic activity/Vol] 14 U/L 13 - 35 U/L [facility] Bilirubin [Mass/Vol] 0.2 mg/dL 0.2 - 1 .3 mg/dL [facility] Calcium [Mass/Vol] 9.2 mg/dL 8.5 - 10. 2 mg/dL [facility] Chloride [Moles/Vol] 103 mmol/L 97 - 10 5 mmol/L [facility] CO2 [Moles/Vol] 22 mmol/L 22 - 30 mmol/L [facility] Creatinine [Mass/Vol] 0.50 mg/dL Low 0.58 - 0.96 mg/dL [facility] Estimated Glomerular Filtration Rate 106 mL/min/1.73m >=60 mL/min/1.73m [facility] Glucose [Mass/Vol] 201 mg/dL High 74 - 99 mg/dL [facility] Potassium [Moles/Vol] 3.5 mmol/L Low 3.7 - 5.1 mmol/L [facility] Protein [Mass/Vol] 6.9 g/dL 6.3 - 8.0 g/dL [facility] Sodium [Moles/Vol] 139 mmol/L 136 - 144 mmol/L [facility] Urea nitrogen [Mass/Vol] 13 mg/dL 7 - 21 mg/dL [facility] TSH BLDon 06-01-2023 TSH Qn 0.989 m[IU]/L 0.270 - 4.200 mIU/L [facility] CBC W Auto Differential pane l (Bld)on 05-31-2023 Basophils (Bld) [#/Vol] 0.08 10*3/uL <0.11 k/uL [facility] Basophils/100 WBC (Bld) 0.6 % [facility] Differential cell count method Nom (Bld) Auto [facility] Eosinophils (Bld) [#/Vol] 1.56 10*3/uL High <0.46 k/uL [facility] Eosinophils/100 WBC (Bld) 11.8 % [facility] Erythrocyte distribution width (RBC) [Ratio] 13.1 % 11.5 - 15.0 % [facility] Hematocrit (Bld) [Volume fraction] 44.5 % 36.0 - 46.0 % [facility] Hemoglobin (Bld) [Mass/Vol] 15.7 g/dL High 11.5 - 15.5 g/dL [facility] Immature granulocytes (Bld) [#/Vol] 0.07 10*3/uL <0.10 k/uL [facility] Immature granulocytes/100 WBC (Bld) 0.5 % [facility] Lymphocytes (Bld) [#/Vol] 4.52 10*3/uL High 1.00 - 4.00 k/uL [facility] Lymphocytes/100 WBC (Bld) 34.3 % [facility] MCH (RBC) [Entitic mass] 29.7 pg 26.0 - 34.0 pg [facility] MCHC (RBC) [Mass/Vol] 35.3 g/dL 30.5 - 36.0 g/dL [facility] MCV (RBC) [Entitic vol] 84.3 fL 80.0 - 100.0 fL [facility] Monocytes (Bld) [#/Vol] 0.77 10*3/uL <0.87 k/uL [facility] Monocytes/100 WBC (Bld) 5.8 % [facility] Neutrophils (Bld) [#/Vol] 6.19 10*3/uL 1.45 - 7.50 k/uL [facility] Neutrophils/100 WBC (Bld) 47.0 % [facility] Nucleated RBC (Bld) [#/Vol] <0.01 k/uL [facility] Nucleated RBC/100 WBC (Bld) [Ratio] 0.0 /100 WBC [facility] Platelet mean volume (Bld) [Entitic vol] 9.8 fL 9.0 - 12.7 fL [facility] Platelets (Bld) [#/Vol] 401 10*3/uL High 150 - 400 k/uL [facility] RBC (Bld) [#/Vol] 5.28 10*6/uL High 3.90 - 5.2 0 m/uL [facility] WBC (Bld) [#/Vol] 13.19 10*3/uL High 3.70 - 11 .00 k/uL [facility] ESR Westergren method (Bld) [Velocity]on 05-31-2023 ESR (Bld) [Velocity] 5 mm/h 0 - 20 mm/hr Cl [facility] XR CHEST 2V FRONTAL/LATon [facility] XR Chest PA and Lateralon IMPRESSION: Small bilateral pleural effusions. 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: P[employer] Transcribe Date/Time: May 28 2023 6:51P Dictated by : TAB BARKLEY MD This examination was interpreted and the report reviewed and electronically signed by: TAB BARKLEY MD on May 28 2023 6:52PM [facility] DIVISION OF RADIOLOGY * * *Final Report* * * DATE OF EXAM: May 28 2023 6:46PM WOX 5291 - XR CHEST 2V FRONTAL/LAT / PROCEDURE REASON: Acute cough * * * * Physician Interpretation * * * * EXAMINATION: CHEST RADIOGRAPH (2 VIEW FRONTAL & LATERAL) CLINICAL HISTORY: Acute cough MQ: XC2_6 EXAM DATE/TIME: 05/28/2023 6:46 PM COMPARISON: 11/21/2022, and others RESULT: Lines, tubes, and devices: None. Lungs and pleura: Small left greater than right bilateral pleural effusions Cardiomediastinal silhouette: Normal cardiomediastinal silhouette. Bones and soft tissues: Unremarkable. DIVISION OF RADIOLOGY Provider, Eliu Nieves - 05/28/2023 * * *Final Report* * * DATE OF EXAM: May 28 2023 6:46PM WOX 5291 - XR CHEST 2V FRONTAL/LAT / PROCEDURE REASON: Acute cough * * * * Physician Interpretation * * * * EXAMINATION: CHEST RADIOGRAPH (2 VIEW FRONTAL & LATERAL) CLINICAL HISTORY: Acute cough MQ: XC2_6 EXAM DATE/TIME: 05/28/2023 6:46 PM COMPARISON: 11/21/2022, and others RESULT: Lines, tubes, and devices: None. Lungs and pleura: Small left greater than right bilateral pleural effusions Cardiomediastinal silhouette: Normal cardiomediastinal silhouette. Bones and soft tissues: Unremarkable. IMPRESSION IMPRESSION: Small bilateral pleural effusions. 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: PSC[employer] Transcribe Date/Time: May 28 2023 6:51P Dictated by : TAB BARKLEY MD This examination was interpreted and the report reviewed and electronically signed by: TAB BARKLEY MD on May 28 2023 6:52PM EST [facility] Radiology Study observation (narrative) [facility] XR Chest PA and LateralOrder ed By: Ccf Provider on 05-28-2023 [facility] Absolute lymphocyte countOrd ered By: Diogo Garza on 05-26-2023 Lymphocytes Auto (Unsp spec) [#/Vol] 3.20 10*3/uL 0.83-4.51 [facility] Basophil percentageOrdered B y: Diogo Garza on 05-26-2023 Basophils/100 WBC (Bld) 0.7 % 0-1 [facility] Chloride [Moles/Vol] 106 mmol/L 98-107 [facility] Eosinophils/100 WBC (Bld) 6.6 % 0-5 [facility] Glucose [Mass/Vol] 193 mg/dL 74-106 [facility] Comment on above: Fasting Glucose resu lt greater than or equal to 126 mg/dL suggests DIABETES MELLITUS per A.D.A. criteria. Neutrophils (Bld) [#/Vol] 6.2 10*3/uL 2.0-7.7 [facility] Neutrophils/100 WBC (Bld) 56.9 % 47-70 [facility] Potassium [Moles/Vol] 3.3 mmol/L 3.5-5.1 [facility] Sodium [Moles/Vol] 137 mmol/L 136-145 [facility] WBC (Bld) [#/Vol] 11.0 10*3/uL 4.4-11.0 [facility] Basophil percentage 0 SEEN /hpf 0-5 [facility] Bilirubin Test strip Ql (U)O rdered By: Diogo Garza on 05-26-2023 Bilirubin Ql (U) Negative Negative [facility] Blood erythrocytes count (nu mber/volume)Ordered By: Diogo Garza on 05-26-2023 RBC (Bld) [#/Vol] 4.81 10*6/uL 4.2-5.4 [facility] Blood hemoglobin measurement (mass/volume)Ordered By: Diogo Garza on 05-26-2023 Hemoglobin (Bld) [Mass/Vol] 13.8 g/dL 12.0-15.0 [facility] Blood lymphocytes/100 leukoc ytesOrdered By: Diogo Garza on 05-26-2023 Lymphocytes/100 WBC (Bld) 29.2 % 19-41 [facility] Blood monocytes/100 leukocyt esOrdered By: Diogo Garza on 05-26-2023 Monocytes/100 WBC (Bld) 6.0 % 0-10 [facility] Blood platelet mean volumeOr dered By: Diogo Garza on 05-26-2023 Platelet mean volume (Bld) [Entitic vol] 9.7 fL 6.2-12.0 [facility] Calcium oxalate crystals det ection in urine sediment by light microscopyOrdered By: Diogo Garza on 05-26-2023 Calcium oxalate crystals LM Ql (Urine sed) 2+ /hpf [facility] Determination of erythrocyte mean corpuscular volume (MCV)Ordered By: Diogo Garza on 05-26-2023 MCV (RBC) [Entitic vol] 86.1 fL 81-99 [facility] Hematocrit Auto (Bld) [Volum e fraction]Ordered By: Diogo Garza on 05-26-2023 Hematocrit (Bld) [Volume fraction] 41.4 % 37-47 [facility] Ketones Test strip Ql (U)Ord ered By: Diogo Garza on 05-26-2023 Ketones Ql (U) Negative Negative [facility] Laboratory - Chemistry and C hemistry - challengeOrdered By: Diogo Garza on 05-26-2023 CO2 [Moles/Vol] 25.0 mmol/L 21.0-32.0 [facility] Urea nitrogen/Creatinine [Mass ratio] 16.8 mg/mg 10-20 [facility] Laboratory - Hematology and Cell countsOrdered By: Diogo Garza on 05-26-2023 Erythrocyte distribution width (RBC) [Entitic vol] 40.7 fL 35.1-43.9 [facility] Erythrocyte distribution width (RBC) [Ratio] 13.1 % 11.6-14.6 [facility] Immature granulocytes/100 WBC (Bld) 0.600 % 0.0-0.9 [facility] Comment on above: IG% - Immature Granu locytes (promyelocytes, myelocytes and metamyelocytes) > 1% indicates that a LEFT SHIFT is Present. MCH (RBC) [Entitic mass] 28.7 pg 27.0-32.0 [facility] Nucleated RBC/100 WBC (Bld) [Ratio] 0 % 0-5 [facility] MCHC Auto (RBC) [Mass/Vol]Or dered By: Diogo Garza on 05-26-2023 MCHC (RBC) [Mass/Vol] 33.3 g/dL 32-36 [facility] Mucus LM Ql (Urine sed)Order ed By: Diogo Garza on 05-26-2023 Mucus Ql (Urine sed) 0 SEEN /hpf [facility] Nitrite Test strip Ql (U)Ord ered By: Diogo Garza on 05-26-2023 Nitrite Ql (U) Negative Negative [facility] No Panel InformationOrdered By: Diogo Garza on 05-26-2023 Estimated Creatinine Clearance Calc 91.01 ml/min [facility] Estimated GFR (MDRD) Amer 131 mL/min >60 [facility] Comment on above: GFR Calc Estimated GFR (MDRD) Non-Af Amer 108 mL/min >60 [facility] Comment on above: Non- GFR Calc Platelets bldOrdered By: Naeem Garza on 05-26-2023 Platelets (Bld) [#/Vol] 313 10*3/uL 150-450 [facility] Protein Test strip Ql (U)Ord ered By: Diogo Garza on 05-26-2023 Protein Ql (U) 30 mg/dl Negative [facility] Serum or plasma calcium pradip urement (mass/volume)Ordered By: Diogo Garza on 05-26-2023 Calcium [Mass/Vol] 9.0 mg/dL 8.5-10.1 [facility] Serum or plasma creatinine m easurement (mass/volume)Ordered By: Diogo Garza on 05-26-2023 Creatinine [Mass/Vol] 0.60 mg/dL 0.55-1.02 [facility] Comment on above: The validity of the calculated GFR & GFRAA in patients over 70 years has not been determined. Clinical correlation is essential. Serum or plasma urea nitroge n measurement (mass/volume)Ordered By: Diogo Garza on 05-26-2023 Urea nitrogen [Mass/Vol] 10 mg/dL 7-18 [facility] Squamous epithelial cells de tection in urine sediment by light microscopyOrdered By: Diogo Garza on 05-26-2023 Epithelial cells.squamous LM Ql (Urine sed) 0-5 SEEN /hpf 5-10 [facility] Thin prep Papanicolaou smear with manual screeningOrdered By: Diogo Garza on 05-26-2023 Thin prep Papanicolaou smear with manual screening 6 5-15 [facility] Urine blood detectionOrdered By: Diogo Garza on 05-26-2023 RBC Ql (U) 25 /ul Negative [facility] RBC Ql (U) 0 SEEN /hpf 0-5 [facility] Urine clarityOrdered By: Naeem Garza on 05-26-2023 Clarity (U) Clear Clear [facility] Urine color determinationOrd ered By: Diogo Garza on 05-26-2023 Color (U) Yellow Yellow [facility] Urine glucose detectionOrder ed By: Diogo Garza on 05-26-2023 Glucose Ql (U) Normal mg/dl Normal [facility] Urine leukocyte esterase det ection by dipstickOrdered By: Diogo Garza on 05-26-2023 Leukocyte esterase Test strip Ql (U) 25 /ul Negative [facility] Urine pHOrdered By: Diogo lynn on 05-26-2023 pH (U) 6.0 [pH] 5.0 - 8.0 [facility] Urine sediment bacteria coun t by microscopy (number/high power field)Ordered By: Diogo Garza on 05-26-2023 Bacteria LM.HPF (Urine sed) [#/Area] 0 /[HPF] None Seen [facility] Urine specific gravity measu rementOrdered By: Diogo Garza on 05-26-2023 Specific gravity (U) [Rel density] 1.015 1.002-1.030 [facility] Urobilinogen Auto test strip Ql (U)Ordered By: Diogo Garza on 05-26-2023 Urobilinogen Ql (U) Normal mg/dl Normal [facility] LUNG DIFFUSION CAPACITY (DANIELLE O)on 04-24-2023 [facility] SPIROMETRY BASELINE ONLYon 0 04-24-2023 DLCO (ml/min/mmHg) 16.19 ml/min/mmHg [facility] DLCO/VA (ml/min/mmHg/L) 3.57 ml/min/mmHg/L [facility] [id number]% PRE (L/S) 1.13 L/S [facility] FEV1 PRE (L) 2.03 L [facility] FEV1/FVC PRE (%) 70 % [facility] FVC PRE (L) 2.91 L [facility] PEF PRE (L/S) 5.37 L/S [facility] VA (L) 4.53 L [facility] Erythrocyte sedimentation ra teOrdered By: Uriel Caceres on 04-01-2023 ESR (Bld) [Velocity] 8 mm/h 0-30 [facility] No Panel InformationOrdered By: Uriel Caceres on 04-01-2023 CA 19-9 Antigen 41 U/mL 0-35 [facility] Comment on above: [facility] El ectrochemiluminescence Immunoassay(ECLIA)Values obtained with different assay methods or kits cannotbe used interchangeably. Results cannot be interpreted asabsolute evidence of the presence or absence of malignantdisease.Performed at: [facility] [id number] Director: Lars Browne PhD, Phone: [phone] Serum or plasma C reactive p rotein measurement (mass/volume)Ordered By: Uriel Caceres on 04-01-2023 CRP [Mass/Vol] mg/L 0.0-3.0 [facility] Comment on above: C-Reactive Protein ( CRP) provides useful information for thediagnosis, therapy and monitoring of inflammatory processesand associated diseases. For the evaluation of Relative Riskfor Cardiovascular Disease, a High Sensitivity CRP (HSCRP)should be ordered. No Panel InformationOrdered By: Carrie Sheikh on 01-30-2023 C-Reactive Protein High Sensitivity 4.76 mg/L <3.00 [facility] Comment on above: Low Relative Risk of CVD <1.0 mg/L Average Relative Risk of CVD 1.0 - 3.0 mg/L High Relative Risk of CVD >3.0 mg/L CA 19-9 Antigen 44 U/mL 0-35 [facility] Comment on above: [facility] El ectrochemiluminescence Immunoassay(ECLIA)Values obtained with different assay methods or kits cannotbe used interchangeably. Results cannot be interpreted asabsolute evidence of the presence or absence of malignantdisease.Performed at: [facility] [id number] Director: Lars Browne PhD, Phone: [phone] EP PanelOrdered By: Carrie Sheikh on 01-08-2023 Gastrointestinal pathogens panel NICOLE+probe (Stl) [facility] Clostridium difficile detect ion by polymerase chain reactionOrdered By: Carrie Sheikh on 01-07-2023 C. difficile DNA NICOLE+probe Ql (Unsp spec) [facility] C. difficile DNA NICOLE+probe Ql (Unsp spec) [facility] No Panel InformationOrdered By: Carrie Sheikh on 01-07-2023 Stool Calprotectin <16 ug/g 0-120 [facility] Comment on above: Concentration Interp retation Follow-Up<16 - 50 ug/g Normal None>50 -120 ug/g Borderline Re-evaluate in 4-6 weeks >120 ug/g Abnormal Repeat as clinically indicatedPerformed at: [facility] [id number] Director: Aung Araujo MD, Phone: [phone] Stool enteric pathogen panel by probe and target amplification methodOrdered By: Carrie Sheikh on 01-07-2023 Gastrointestinal pathogens panel NICOLE+probe (Stl) [facility] Stool lactoferrin detection by immunoassayOrdered By: Carrie Sheikh on 01-07-2023 Lactoferrin IA Ql (Stl) [facility] Lactoferrin IA Ql (Stl) [facility] Erythrocyte sedimentation ra teOrdered By: Carrie Sheikh on 01-04-2023 ESR (Bld) [Velocity] 9 mm/h 0-30 [facility] - Chemistry and C hemistry - challengeOrdered By: Carrie Sheikh on 01-04-2023 Lipase [Catalytic activity/Vol] 130 U/L 13-75 [facility] Comment on above: Please note:LIPASE r evised reference range effective 22. New Lipase methodology. Expected to produce lower values than the previous assay method. NEW Reference Range: 13 - 75 U/L No Panel InformationOrdered By: Carrie Sheikh on 01-04-2023 Immunoglobulin G4 44 mg/dL 2-96 [facility] Comment on above: Performed at: - [address] [id number] Director: Lars Browne PhD, Phone: [phone] Serum IgG subclass 1 measure ment (mass/volume)Ordered By: Carrie Sheikh on 01-04-2023 IgG subclass 1 (S) [Mass/Vol] 338 mg/dL 248-810 [facility] Serum IgG subclass 2 measure ment (mass/volume)Ordered By: Carrie Sheikh on 01-04-2023 IgG subclass 2 (S) [Mass/Vol] 273 mg/dL 130-555 [facility] Serum IgG subclass 3 measure ment (mass/volume)Ordered By: Carrie Sheikh on 01-04-2023 IgG subclass 3 (S) [Mass/Vol] 32 mg/dL 15-102 [facility] Serum or plasma C reactive p rotein measurement (mass/volume)Ordered By: Carrie Sheikh on 01-04-2023 CRP [Mass/Vol] 3.34 mg/L 0.0-3.0 [facility] Comment on above: C-Reactive Protein ( CRP) provides useful information for thediagnosis, therapy and monitoring of inflammatory processesand associated diseases. For the evaluation of Relative Riskfor Cardiovascular Disease, a High Sensitivity CRP (HSCRP)should be ordered. Serum or plasma IgG measurem ent (mass/volume)Ordered By: Carrie Sheikh on 01-04-2023 IgG [Mass/Vol] 720 mg/dL [id number] [facility] Absolute lymphocyte countOrd ered By: Dr. Barrett on 12-29-2022 Lymphocytes Auto (Unsp spec) [#/Vol] 3.31 10*3/uL 0.83-4.51 [facility] Basophil percentageOrdered B y: Dr. Barrett on 12-29-2022 Basophils/100 WBC (Bld) 0.5 % 0-1 [facility] Bilirubin [Mass/Vol] 0.30 mg/dL 0.20-1.00 [facility] Comment on above: For patients on eltr ombopag therapy, use of Dimension [place] TBIL is not recommended. Chloride [Moles/Vol] 105 mmol/L 98-107 [facility] Eosinophils/100 WBC (Bld) 1.5 % 0-5 [facility] Glucose [Mass/Vol] 167 mg/dL 74-106 [facility] Comment on above: Fasting Glucose resu lt greater than or equal to 126 mg/dL suggests DIABETES MELLITUS per A.D.A. criteria. Neutrophils (Bld) [#/Vol] 5.2 10*3/uL 2.0-7.7 [facility] Neutrophils/100 WBC (Bld) 55.6 % 47-70 [facility] Potassium [Moles/Vol] 3.2 mmol/L 3.5-5.1 [facility] Protein [Mass/Vol] 7.5 g/dL 6.4-8.2 [facility] Sodium [Moles/Vol] 137 mmol/L 136-145 [facility] WBC (Bld) [#/Vol] 9.4 10*3/uL 4.4-11.0 [facility] Blood erythrocytes count (nu mber/volume)Ordered By: Dr. Barrett on 12-29-2022 RBC (Bld) [#/Vol] 4.94 10*6/uL 4.2-5.4 [facility] Blood hemoglobin measurement (mass/volume)Ordered By: Dr. Barrett on 12-29-2022 Hemoglobin (Bld) [Mass/Vol] 14.2 g/dL 12.0-15.0 [facility] Blood lymphocytes/100 leukoc ytesOrdered By: Dr. Barrett on 12-29-2022 Lymphocytes/100 WBC (Bld) 35.2 % 19-41 [facility] Blood monocytes/100 leukocyt esOrdered By: Dr. Barrett on 12-29-2022 Monocytes/100 WBC (Bld) 7.0 % 0-10 [facility] Blood platelet mean volumeOr dered By: Dr. Barrett on 12-29-2022 Platelet mean volume (Bld) [Entitic vol] 9.1 fL 6.2-12.0 [facility] Determination of erythrocyte mean corpuscular volume (MCV)Ordered By: Dr. Barrett on 12-29-2022 MCV (RBC) [Entitic vol] 84.2 fL 81-99 [facility] Hematocrit Auto (Bld) [Volum e fraction]Ordered By: Dr. Barrett on 12-29-2022 Hematocrit (Bld) [Volume fraction] 41.6 % 37-47 [facility] Laboratory - Chemistry and C hemistry - challengeOrdered By: Dr. Barrett on 12-29-2022 ALP [Catalytic activity/Vol] 78 U/L 45-117 [facility] ALT [Catalytic activity/Vol] 39 U/L 13-56 [facility] CO2 [Moles/Vol] 25.0 mmol/L 21.0-32.0 [facility] Globulin (S) [Mass/Vol] 3.8 g/dL 2.2-4.2 [facility] Urea nitrogen/Creatinine [Mass ratio] 17.3 mg/mg 10-20 [facility] - Hematology and Cell countsOrdered By: Dr. Barrett on 12-29-2022 Erythrocyte distribution width (RBC) [Entitic vol] 39.8 fL 35.1-43.9 [facility] Erythrocyte distribution width (RBC) [Ratio] 13.1 % 11.6-14.6 [facility] Immature granulocytes/100 WBC (Bld) 0.200 % 0.0-0.9 [facility] Comment on above: IG% - Immature Granu locytes (promyelocytes, myelocytes and metamyelocytes) > 1% indicates that a LEFT SHIFT is Present. MCH (RBC) [Entitic mass] 28.7 pg 27.0-32.0 [facility] Nucleated RBC/100 WBC (Bld) [Ratio] 0 % 0-5 [facility] MCHC Auto (RBC) [Mass/Vol]Or dered By: Dr. Barrett on 12-29-2022 MCHC (RBC) [Mass/Vol] 34.1 g/dL 32-36 [facility] No Panel InformationOrdered By: Dr. Barrett on 12-29-2022 Troponin I High Sensitivity 5 pg/mL 3.0-54.0 [facility] Comment on above: Please Note: New Evelyn t Units and Gender Specific Reference Ranges. For more information see Policy Stat Procedure [place] High Sensitivity Troponin (TNIH) and attachments. Estimated Creatinine Clearance Calc 94.15 ml/min [facility] Estimated GFR (MDRD) Amer 136 mL/min >60 [facility] Comment on above: GFR Calc Estimated GFR (MDRD) Non-Af Amer 112 mL/min >60 [facility] Comment on above: Non- GFR Calc Platelets bldOrdered By: Dr. Barrett on 12-29-2022 Platelets (Bld) [#/Vol] 329 10*3/uL 150-450 [facility] Serum or plasma albumin pradip urement (mass/volume)Ordered By: Dr. Barrett on 12-29-2022 Albumin [Mass/Vol] 3.7 g/dL 3.2-5.0 [facility] Serum or plasma albumin/glob ulin mass ratioOrdered By: Dr. Barrett on 12-29-2022 Albumin/Globulin [Mass ratio] 1.0 {ratio} 0.9-2.4 [facility] Serum or plasma calcium pradip urement (mass/volume)Ordered By: Dr. Barrett on 12-29-2022 Calcium [Mass/Vol] 8.6 mg/dL 8.5-10.1 [facility] Serum or plasma creatinine m easurement (mass/volume)Ordered By: Dr. Barrett on 12-29-2022 Creatinine [Mass/Vol] 0.58 mg/dL 0.55-1.02 [facility] Comment on above: The validity of the calculated GFR & GFRAA in patients over 70 years has not been determined. Clinical correlation is essential. Serum or plasma urea nitroge n measurement (mass/volume)Ordered By: Dr. Barrett on 12-29-2022 Urea nitrogen [Mass/Vol] 10 mg/dL 7-18 [facility] Thin prep Papanicolaou smear with manual screeningOrdered By: Dr. Barrett on 12-29-2022 Thin prep Papanicolaou smear with manual screening 35 U/L 15- [facility] Thin prep Papanicolaou smear with manual screening 7 5-15 [facility] ALBUMIN/CREAT RATIO RND URon 12-20-2022 Albumin DL <= 20 mg/L (U) [Mass/Vol] [facility] Albumin/Creatinine (U) [Mass ratio] <30 mg/g [facility] Creatinine (U) [Mass/Vol] 63.1 mg/dL 20.0 - 300.0 mg/dL [facility] [id number] BLon 12-19 Alpha 1 antitrypsin [Mass/Vol] 158 mg/dL 90 - 200 mg/dL [facility] CBC panel Auto (Bld)on 12-19 Erythrocyte distribution width (RBC) [Ratio] 13.3 % 11.5 - 15.0 % [facility] Hematocrit (Bld) [Volume fraction] 47.7 % High 36.0 - 46.0 % [facility] Hemoglobin (Bld) [Mass/Vol] 15.6 g/dL High 11.5 - 15.5 g/dL [facility] MCH (RBC) [Entitic mass] 29.0 pg 26.0 - 34.0 pg [facility] MCHC (RBC) [Mass/Vol] 32.7 g/dL 30.5 - 36.0 g/dL [facility] MCV (RBC) [Entitic vol] 88.7 fL 80.0 - 100.0 fL [facility] Nucleated RBC (Bld) [#/Vol] <0.01 k/uL [facility] Platelet mean volume (Bld) [Entitic vol] 9.7 fL 9.0 - 12.7 fL [facility] Platelets (Bld) [#/Vol] 306 10*3/uL 150 - 400 k/uL [facility] RBC (Bld) [#/Vol] 5.38 10*6/uL High 3.90 - 5.2 0 m/uL [facility] WBC (Bld) [#/Vol] 9.10 10*3/uL 3.70 - 11. 00 k/uL [facility] Comprehensive metabolic 2000 panelon 12-19-2022 Albumin [Mass/Vol] 4.2 g/dL 3.9 - 4.9 g/dL [facility] ALP [Catalytic activity/Vol] 55 U/L 34 - 123 U/L [facility] ALT [Catalytic activity/Vol] 18 U/L 7 - 38 U/L [facility] Anion gap [Moles/Vol] 14 mmol/L 9 - 18 mmol/L [facility] AST [Catalytic activity/Vol] 27 U/L 13 - 35 U/L [facility] Bilirubin [Mass/Vol] 0.2 mg/dL 0.2 - 1 .3 mg/dL [facility] Calcium [Mass/Vol] 8.9 mg/dL 8.5 - 10. 2 mg/dL [facility] Chloride [Moles/Vol] 105 mmol/L 97 - 10 5 mmol/L [facility] CO2 [Moles/Vol] 21 mmol/L Low 22 - 30 mmol/L [facility] Creatinine [Mass/Vol] 0.49 mg/dL Low 0.58 - 0.96 mg/dL [facility] Estimated Glomerular Filtration Rate 107 mL/min/1.73m >=60 mL/min/1.73m [facility] Glucose [Mass/Vol] 178 mg/dL High 74 - 99 mg/dL [facility] Potassium [Moles/Vol] 3.5 mmol/L Low 3.7 - 5.1 mmol/L [facility] Protein [Mass/Vol] 7.0 g/dL 6.3 - 8.0 g/dL [facility] Sodium [Moles/Vol] 140 mmol/L 136 - 144 mmol/L [facility] Urea nitrogen [Mass/Vol] 11 mg/dL 7 - 21 mg/dL [facility] HbA1c (Bld)on 12-19-2022 Average glucose Estimated from glycated hemoglobin (Bld) [Mass/Vol] 180 mg/dL [facility] HbA1c (Bld) [Mass fraction] 7.9 % High 4.3 - 5.6 % [facility] Lipid 1996 panelon 3 Cholesterol [Mass/Vol] 153 mg/dL <200 mg/dL [facility] Cholesterol in HDL [Mass/Vol] 26 mg/dL Low >39 mg/dL [facility] Cholesterol in LDL [Mass/Vol] 60 mg/dL <100 mg/dL [facility] Cholesterol in LDL/Cholesterol in HDL [Mass ratio] 2.31 {ratio} <2.54 [facility] Cholesterol in VLDL [Mass/Vol] 67 mg/dL High <30 mg/dL [facility] Cholesterol non HDL [Mass/Vol] 127 mg/dL <130 mg/dL [facility] Cholesterol.total/Chol esterol in HDL [Mass ratio] 5.88 {ratio} High <5.10 [facility] Fasting Time 13 hrs [facility] Triglyceride [Mass/Vol] 334 mg/dL High <150 mg/dL [facility] XR CHEST 2V FRONTAL/LATon [facility] XR Chest PA and Lateralon IMPRESSION: Peribronchial cuffing which may be seen with small airways inflammation/bronchitis Mild right infrahilar opacity, atelectasis versus bronchopneumonia in the appropriate clinical setting 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: OLIVE Transcribe Date/Time: Nov 21 2022 4:50P Dictated by : JONATHAN SUAREZ MD This examination was interpreted and the report reviewed and electronically signed by: JONATHAN SUAREZ MD on Nov 21 2022 4:52PM [facility] DIVISION OF RADIOLOGY * * *Final Report* * * DATE OF EXAM: Nov 21 2022 4:50PM WOX [id number] - XR CHEST 2V FRONTAL/LAT / PROCEDURE REASON: Acute cough * * * * Physician Interpretation * * * * EXAMINATION: CHEST RADIOGRAPH (2 VIEW FRONTAL & LATERAL) CLINICAL HISTORY: Acute cough MQ: XC2_6 EXAM DATE/TIME: 11/21/2022 4:50 PM COMPARISON: Chest x-ray dated June 27, 2022 RESULT: Lines, tubes, and devices: None. Lungs and pleura: Mild peribronchial cuffing. Mild right infrahilar opacity.. No lung mass. No pleural effusion. No pneumothorax. Cardiomediastinal silhouette: Normal cardiomediastinal silhouette. Bones and soft tissues: Degenerative changes are present within the thoracic spine. DIVISION OF RADIOLOGY Provider, [facility] - 11/21/2022 * * *Final Report* * * DATE OF EXAM: Nov 21 2022 4:50PM WOX [id number] - XR CHEST 2V FRONTAL/LAT / PROCEDURE REASON: Acute cough * * * * Physician Interpretation * * * * EXAMINATION: CHEST RADIOGRAPH (2 VIEW FRONTAL & LATERAL) CLINICAL HISTORY: Acute cough MQ: XC2_6 EXAM DATE/TIME: 11/21/2022 4:50 PM COMPARISON: Chest x-ray dated June 27, 2022 RESULT: Lines, tubes, and devices: None. Lungs and pleura: Mild peribronchial cuffing. Mild right infrahilar opacity.. No lung mass. No pleural effusion. No pneumothorax. Cardiomediastinal silhouette: Normal cardiomediastinal silhouette. Bones and soft tissues: Degenerative changes are present within the thoracic spine. IMPRESSION IMPRESSION: Peribronchial cuffing which may be seen with small airways inflammation/bronchitis Mild right infrahilar opacity, atelectasis versus bronchopneumonia in the appropriate clinical setting 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: OLIVE Transcribe Date/Time: Nov 21 2022 4:50P Dictated by : JONATHAN SUAREZ MD This examination was interpreted and the report reviewed and electronically signed by: JONATHAN SUAREZ MD on Nov 21 2022 4:52PM EST [facility] Radiology Study observation (narrative) [facility] XR Chest PA and LateralOrder ed By: [facility] Provider on 11-21-2022 [facility] DXA-AXIAL SKELETONon 023 LOWEST T-SCORE 0.5 [facility] MRI LUMBAR SPINE WO IVCONon 09-27-2022 [facility] JAVIER SCREENINGon 09-14-2022 [facility] No Panel Informationon 07-16 [facility] Absolute lymphocyte countOrd ered By: Dr. Castro on 07-02-2022 Lymphocytes Auto (Unsp spec) [#/Vol] 3.35 10*3/uL 0.83-4.51 [facility] Basophil percentageOrdered B y: Dr. Castro on 07-02-2022 Basophils/100 WBC (Bld) 0.9 % 0-1 [facility] Chloride [Moles/Vol] 100 mmol/L 98-107 [facility] Eosinophils/100 WBC (Bld) 1.0 % 0-5 [facility] Glucose [Mass/Vol] 332 mg/dL 74-106 [facility] Comment on above: Glucose result great er than or equal to 200 mg/dLsuggests DIABETES MELLITUS per A.D.A. criteria. Neutrophils (Bld) [#/Vol] 9.3 10*3/uL 2.0-7.7 [facility] Neutrophils/100 WBC (Bld) 69.7 % 47-70 [facility] Potassium [Moles/Vol] 3.9 mmol/L 3.5-5.1 [facility] Sodium [Moles/Vol] 135 mmol/L 136-145 [facility] WBC (Bld) [#/Vol] 13.4 10*3/uL 4.4-11.0 [facility] Basophil percentage 0 SEEN /hpf 0-5 [facility] Bilirubin Test strip Ql (U)O rdered By: Dr. Castro on 07-02-2022 Bilirubin Ql (U) Negative Negative [facility] Blood erythrocytes count (nu mber/volume)Ordered By: Dr. Castro on 07-02-2022 RBC (Bld) [#/Vol] 5.45 10*6/uL 4.2-5.4 [facility] Blood hemoglobin measurement (mass/volume)Ordered By: Dr. Castro on 07-02-2022 Hemoglobin (Bld) [Mass/Vol] 15.7 g/dL 12.0-15.0 [facility] Blood lymphocytes/100 leukoc ytesOrdered By: Dr. Castro on 07-02-2022 Lymphocytes/100 WBC (Bld) 25.0 % 19-41 [facility] Blood monocytes/100 leukocyt esOrdered By: Dr. Castro on 07-02-2022 Monocytes/100 WBC (Bld) 2.5 % 0-10 [facility] Blood platelet mean volumeOr dered By: Dr. Castro on 07-02-2022 Platelet mean volume (Bld) [Entitic vol] 9.8 fL 6.2-12.0 [facility] Determination of erythrocyte mean corpuscular volume (MCV)Ordered By: Dr. Castro on 07-02-2022 MCV (RBC) [Entitic vol] 84.8 fL 81-99 [facility] Glucose Glucometer (BldC) [M ass/Vol]Ordered By: Dr. Castro on 07-02-2022 Glucose [Mass/Vol] 306 mg/dL 74-106 [facility] Comment on above: MANAGEMENT OF PATIEN T CARE PER NURSING PROTOCOL Hematocrit Auto (Bld) [Volum e fraction]Ordered By: Dr. Castro on 07-02-2022 Hematocrit (Bld) [Volume fraction] 46.2 % 37-47 [facility] Ketones Test strip Ql (U)Ord ered By: Dr. Castro on 07-02-2022 Ketones Ql (U) Negative Negative [facility] - Chemistry and C hemistry - challengeOrdered By: Dr. Castro on 07-02-2022 CO2 [Moles/Vol] 29.0 mmol/L 21.0-32.0 [facility] Urea nitrogen/Creatinine [Mass ratio] 21.5 mg/mg 10-20 [facility] - Hematology and Cell countsOrdered By: Dr. Castro on 07-02-2022 Erythrocyte distribution width (RBC) [Entitic vol] 38.7 fL 35.1-43.9 [facility] Erythrocyte distribution width (RBC) [Ratio] 12.8 % 11.6-14.6 [facility] Immature granulocytes/100 WBC (Bld) 0.900 % 0.0-0.9 [facility] Comment on above: IG% - Immature Granu locytes (promyelocytes, myelocytes and metamyelocytes) > 1% indicates that a LEFT SHIFT is Present. MCH (RBC) [Entitic mass] 28.8 pg 27.0-32.0 [facility] Nucleated RBC/100 WBC (Bld) [Ratio] 0 % 0-[facility] [Mass/Vol]Or dered By: Dr. Castro on 07-02-2022 MCHC (RBC) [Mass/Vol] 34.0 g/dL 32-36 [facility] Mucus LM Ql (Urine sed)Order ed By: Dr. Castro on 07-02-2022 Mucus Ql (Urine sed) 0 SEEN /hpf [facility] Nitrite Test strip Ql (U)Ord ered By: Dr. Castro on 07-02-2022 Nitrite Ql (U) Negative Negative [facility] No Panel InformationOrdered By: Dr. Castro on 07-02-2022 Estimated Creatinine Clearance Calc 69.12 ml/min [facility] Estimated GFR (MDRD) Amer 95 mL/min >60 [facility] Comment on above: GFR Calc Estimated GFR (MDRD) Non-Af Amer 78 mL/min >60 [facility] Comment on above: Non- GFR Calc Platelets bldOrdered By: Dr. Castro on 07-02-2022 Platelets (Bld) [#/Vol] 362 10*3/uL 150-450 [facility] Serum or plasma calcium pradip urement (mass/volume)Ordered By: Dr. Castro on 07-02-2022 Calcium [Mass/Vol] 8.8 mg/dL 8.5-10.1 [facility] Serum or plasma creatinine m easurement (mass/volume)Ordered By: Dr. Castro on 07-02-2022 Creatinine [Mass/Vol] 0.79 mg/dL 0.55-1.02 [facility] Comment on above: The validity of the calculated GFR & GFRAA in patients over 70 years has not been determined. Clinical correlation is essential. Serum or plasma urea nitroge n measurement (mass/volume)Ordered By: Dr. Castro on 07-02-2022 Urea nitrogen [Mass/Vol] 17 mg/dL 7-18 [facility] Squamous epithelial cells de tection in urine sediment by light microscopyOrdered By: Dr. Castro on 07-02-2022 Epithelial cells.squamous LM Ql (Urine sed) 0-5 SEEN /hpf 5-10 [facility] Thin prep Papanicolaou smear with manual screeningOrdered By: Dr. Castro on 07-02-2022 Thin prep Papanicolaou smear with manual screening 6 5-15 [facility] UA DIP, URINE (POC)on 2021 BILIRUBIN UA (POCT) Negative Negative [facility] CLARITY UA (POCT) Clear [facility] COLOR UA (POCT) Yellow [facility] GLUCOSE UA (POCT) 100 mg/dL Abnormal Negative mg/dL [facility] HEMOGLOBIN/BLOOD UA (POCT) Negative Negative [facility] KETONE UA (POCT) Negative Negative mg/dL [facility] LEUKOCYTES UA (POCT) Negative Negative [facility] NITRITE UA (POCT) Negative Negative [facility] PH UA (POCT) 5.5 4.5 - 8.0 [facility] SPECIFIC GRAVITY UA (POCT) 1.025 1.005 - 1.030 [facility] UROBILINOGEN UA (POCT) 0.2 E.U./dL Leonie l E.U./dL [facility] Urine blood detectionOrdered By: Dr. Castro on 07-02-2022 RBC Ql (U) Negative Negative [facility] RBC Ql (U) 0 SEEN /hpf 0-5 [facility] Urine clarityOrdered By: Dr. Castro on 07-02-2022 Clarity (U) Clear Clear [facility] Urine color determinationOrd ered By: Dr. Castro on 07-02-2022 Color (U) Yellow Yellow [facility] Urine glucose detectionOrder ed By: Dr. Castro on 07-02-2022 Glucose Ql (U) Normal mg/dl Normal [facility] Urine leukocyte esterase det ection by dipstickOrdered By: Dr. Castro on 07-02-2022 Leukocyte esterase Test strip Ql (U) Negative Negative [facility] Urine pHOrdered By: Dr. Houston morales on 07-02-2022 pH (U) 6.0 [pH] 5.0 - 8.0 [facility] Urine protein assay by test strip, semi-quantitativeOrdered By: Dr. Castro on 07-02-2022 Protein Ql (U) Negative Negative [facility] Urine sediment bacteria coun t by microscopy (number/high power field)Ordered By: Dr. Castro on 07-02-2022 Bacteria LM.HPF (Urine sed) [#/Area] RARE /hpf None Seen [facility] Urine specific gravity measu rementOrdered By: Dr. Castro on 07-02-2022 Specific gravity (U) [Rel density] 1.010 1.002-1.030 [facility] Urobilinogen Auto test strip Ql (U)Ordered By: Dr. Castro on 07-02-2022 Urobilinogen Ql (U) Normal mg/dl Normal [facility] XR Chest PA and Lateralon IMPRESSION: No acute radiographic abnormality. 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: PSCB Transcribe Date/Time: Jun 27 2022 4:11P Dictated by : JANY POST MD This examination was interpreted and the report reviewed and electronically signed by: JANY POST MD on Jun 27 2022 4:12PM [facility] DIVISION OF RADIOLOGY * * *Final Report* * * DATE OF EXAM: Jun 27 2022 4:09PM WOX 5291 - XR CHEST 2V FRONTAL/LAT / PROCEDURE REASON: Moderate persistent asthma with acute exacerbation * * * * Physician Interpretation * * * * EXAMINATION: CHEST RADIOGRAPH (2 VIEW FRONTAL & LATERAL) CLINICAL HISTORY: Moderate persistent asthma with acute exacerbation MQ: XC2_6 EXAM DATE/TIME: 06/27/2022 4:09 PM COMPARISON: 03/13/2022 RESULT: Lines, tubes, and devices: None. Lungs and pleura: No consolidation. No lung mass. No pleural effusion. No pneumothorax. Cardiomediastinal silhouette: Normal cardiomediastinal silhouette. Bones and soft tissues: Degenerative change throughout the spine DIVISION OF RADIOLOGY Provider, [facility] - 06/27/2022 * * *Final Report* * * DATE OF EXAM: Jun 27 2022 4:09PM WOX 5291 - XR CHEST 2V FRONTAL/LAT / PROCEDURE REASON: Moderate persistent asthma with acute exacerbation * * * * Physician Interpretation * * * * EXAMINATION: CHEST RADIOGRAPH (2 VIEW FRONTAL & LATERAL) CLINICAL HISTORY: Moderate persistent asthma with acute exacerbation MQ: XC2_6 EXAM DATE/TIME: 06/27/2022 4:09 PM COMPARISON: 03/13/2022 RESULT: Lines, tubes, and devices: None. Lungs and pleura: No consolidation. No lung mass. No pleural effusion. No pneumothorax. Cardiomediastinal silhouette: Normal cardiomediastinal silhouette. Bones and soft tissues: Degenerative change throughout the spine IMPRESSION IMPRESSION: No acute radiographic abnormality. 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: OLIVE Transcribe Date/Time: Jun 27 2022 4:11P Dictated by : JANY POST MD This examination was interpreted and the report reviewed and electronically signed by: JANY POST MD on Jun 27 2022 4:12PM EST [facility] Radiology Study observation (narrative) [facility] XR Chest PA and LateralOrder ed By: Ccf Provider on 06-27-2022 [facility] UA DIP, URINE (POC)on 2021 BILIRUBIN UA (POCT) Negative Negative [facility] CLARITY UA (POCT) Clear [facility] COLOR UA (POCT) Yellow [facility] GLUCOSE UA (POCT) Negative Negative mg/dL [facility] HEMOGLOBIN/BLOOD UA (POCT) Negative Negative [facility] KETONE UA (POCT) Negative Negative mg/dL [facility] LEUKOCYTES UA (POCT) Trace Abnormal Negative [facility] NITRITE UA (POCT) Negative Negative [facility] PH UA (POCT) 5.0 4.5 - 8.0 [facility] Protein Ql (U) Negative Negative mg/dL [facility] SPECIFIC GRAVITY UA (POCT) 1.015 1.005 - 1.030 [facility] UROBILINOGEN UA (POCT) 0.2 E.U./dL Leonie l E.U./dL [facility] No Panel Informationon 06-20 Endomysial IgA Antibody Negative Negative [facility] Work Phone: Serum IgA measurement (units /volume)on 06-20-2022 IgA Qn (S) 234 mg/dL 87-352 [facility] Work Phone: Comment on above: Performed at: [address] [id number] Director: Lars Browne PhD, Phone: [phone] Serum or plasma C reactive p rotein measurement (mass/volume)on 06-20-2022 CRP [Mass/Vol] mg/L 0.0-3.0 [facility] Work Phone: Comment on above: C-Reactive Protein ( CRP) provides useful information for thediagnosis, therapy and monitoring of inflammatory processesand associated diseases. For the evaluation of Relative Riskfor Cardiovascular Disease, a High Sensitivity CRP (HSCRP)should be ordered. Serum tissue transglutaminas e IgA antibody assay (units/volume)on 06-20-2022 tTG IgA Qn (S) <2 U/mL 0-3 [facility] Work Phone: Comment on above: Negative 0 - 3 Weak Positive 4 - 10 Positive >10 Tissue Transglutaminase (tTG) has been identified as the endomysial antigen. Studies have demonstr- ated that endomysial IgA antibodies have over 99% specificity for gluten sensitive enteropathy. HbA1c (Bld)on 03-29-2022 Average glucose Estimated from glycated hemoglobin (Bld) [Mass/Vol] 169 mg/dL [facility] HbA1c (Bld) [Mass fraction] 7.5 % High 4.3 - 5.6 % [facility] XR Chest PA and Lateralon IMPRESSION: No acute findings. 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: PSCB Transcribe Date/Time: Mar 13 2022 12:37P Dictated by : CLAUDIA WILSON MD This examination was interpreted and the report reviewed and electronically signed by: CLAUDIA WILSON MD on Mar 13 2022 12:44PM EST [facility]_DO_NOT_ USE_DIVISIO N OF RADIOLOGY * * *Final Report* * * DATE OF EXAM: Mar 13 2022 12:33PM WOX 5291 - XR CHEST 2V FRONTAL/LAT / PROCEDURE REASON: multiple diagnoses * * * * Physician Interpretation * * * * EXAMINATION: CHEST RADIOGRAPH (2 VIEW FRONTAL & LATERAL) CLINICAL HISTORY: Acute cough URI, acute MQ: XC2_6 EXAM DATE/TIME: 03/13/2022 12:33 PM COMPARISON: Chest x-ray on 08/14/2021 RESULT: Lines, tubes, and devices: None. Lungs and pleura: No consolidation. No lung mass. No pleural effusion. No pneumothorax. Cardiomediastinal silhouette: Stable cardiomediastinal silhouette. Bones and soft tissues: The spine shows degenerative changes. [facility]ZZ_DO_NOT_ USE_DIVISIO N OF RADIOLOGY Provider, Eliu puckett [place] - 03/13/2022 * * *Final Report* * * DATE OF EXAM: Mar 13 2022 12:33PM WOX 5291 - XR CHEST 2V FRONTAL/LAT / PROCEDURE REASON: multiple diagnoses * * * * Physician Interpretation * * * * EXAMINATION: CHEST RADIOGRAPH (2 VIEW FRONTAL & LATERAL) CLINICAL HISTORY: Acute cough URI, acute MQ: XC2_6 EXAM DATE/TIME: 03/13/2022 12:33 PM COMPARISON: Chest x-ray on 08/14/2021 RESULT: Lines, tubes, and devices: None. Lungs and pleura: No consolidation. No lung mass. No pleural effusion. No pneumothorax. Cardiomediastinal silhouette: Stable cardiomediastinal silhouette. Bones and soft tissues: The spine shows degenerative changes. IMPRESSION IMPRESSION: No acute findings. 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: OLIVE Transcribe Date/Time: Mar 13 2022 12:37P Dictated by : CLAUDIA WILSON MD This examination was interpreted and the report reviewed and electronically signed by: CLAUDIA WILSON MD on Mar 13 2022 12:44PM EST [facility] Radiology Study observation (narrative) [facility] XR Chest PA and LateralOrder ed By: Ccf Provider on 03-13-2022 [facility] GLUCOSE, BLOOD (POC)on 02-22 Glucose [Mass/Vol] 133 mg/dL Abnormal 74 - 99 mg/dL [facility] SURGICAL PATHOLOGYon 022 CASE REPORT Normal [facility] Comment on above: Order Comment: Speci men Type: TISSUE SPECIMEN Ordering Facility: [facility] Address: [address] [place] [id number] Result Comment: Surg [facility] Pathology Report Case: [id number] Authorizing Provider: Patti Manrique MD Collected: 02/22/2022 12:49 PM Ordering Location: SURGERY Received: 02/22/2022 03:59 PM Pathologist: Elaine Asencio MD Specimens: A) - ANTRUM (STOMACH) BIOPSY B) - ESOPHAGOGASTRIC JUNCTION BIOPSY C) - TRANSVERSE COLON POLYP Performed By: #### S #### [facility] CLIA [id number] [address] FINAL DIAGNOSIS Normal [facility] Comment on above: Order Comment: Speci men Type: TISSUE SPECIMEN Ordering Facility: [facility] Address: [address] [place] [address] Result Comment: A. G astric antrum, biopsies: - Benign gastric mucosa, negative for inflammatory infiltrates. B. Esophagogastric junction, biopsies: - Mild active inflammation involving esophageal squamous epithelium and gastric-type glandular mucosa. Negative for Molina's esophagus. C. Transverse colon, biopsy: - Tubular adenoma. Performed By: #### S #### [facility] CLIA [id number] [address] FINAL PERFORMING LAB Normal [facility] Comment on above: Order Comment: Speci shasta Type: TISSUE SPECIMEN Ordering Facility: [facility] Address: [address] [place] [address] Result Comment: Diag nostic interpretation performed at [facility], [address] [place] [address] CLIA# [id number] Airplane Refueler: Rosendo Powell M.D. Performed By: #### S #### [facility] CLIA [id number] [address] GROSS DESCRIPTION Normal [facility] Comment on above: Order Comment: Speci shasta Type: TISSUE SPECIMEN Ordering Facility: [facility] Address: [address] [place] [address] Result Comment: A. A NTRUM (STOMACH) BIOPSY. Received in formalin labeled antrum (stomach) biopsy are 2 pieces of todd, soft tissue aggregating to 1.3 x 0.2 x 0.2 cm. Totally submitted in one cassette. B. ESOPHAGOGASTRIC JUNCTION BIOPSY. Received in formalin labeled esophagogastric junction biopsy are multiple pieces of todd, soft tissue aggregating to 0.8 x 0.2 x 0.2 cm. The smaller fragments may not survive processing. Totally submitted in one cassette. C. TRANSVERSE COLON POLYP. Received in formalin labeled transverse colon polyp is one piece of todd, soft tissue measuring 0.7 x 0.5 x 0.2 cm. Totally submitted in one cassette. Gross examination performed at [facility], [address] [place] [address] RSA February 23, 2022 12:47 PM Performed By: #### S #### [facility] CLIA [id number] [address] [facility] Atypical perinuclear antineu trophil cytoplasmic antibodies measurementon 01-15-2022 Neutrophil cytoplasmic Ab.perinuclear.atypica l IF (S) [Titer] <1:20 titer Neg:<1:20 [facility] Work Phone: Comment on above: The atypical pANCA p attern has been observed in asignificant percentage of patients with ulcerative colitis,primary sclerosing cholangitis and autoimmune hepatitis. Basophil percentageon 2021 Ammonia (P) [Moles/Vol] 23.0 umol/L 11-32 [facility] Work Phone: Cholesterol [Mass/Vol] 134 mg/dL <200 [facility] Work Phone: Comment on above: <200 mg/dL Desirable 200-240 mg/dL Borderline >240 mg/dL High Risk Triglyceride [Mass/Vol] 285 mg/dL [facility] Work Phone: Comment on above: The drugs N-Acetylcy steine and Metamizole may falsely depress this assay.Serum Triglycerides Reference Interval Normal <150 mg/dL Borderline high 150 - 199 mg/dL High 200 - 499 mg/dL Very High > or = 500 mg/dL HIV 1 and HIV-2 antibody ass ay with HIV-1 p24 antigen detectionon 01-15-2022 HIV 1+2 Ab+HIV1 p24 Ag IA Ql Non-Reactive Nonreactive [facility] Work Phone: INR in Blood by Coagulation assayon 01-15-2022 INR Coag (Bld) [Relative time] 1.0 {INR} [facility] Work Phone: Laboratory - Chemistry and C hemistry - challengeon 01-15-2022 CK [Catalytic activity/Vol] 382 U/L 26-192 [facility] Work Phone: Laboratory - Coagulationon 0 01-15-2022 PT Coag (PPP) [Time] 12.8 s 11.7-14.9 [facility] Work Phone: No Panel Informationon 01-15 Ceruloplasmin 29.3 mg/dL [facility] Work Phone: Haptoglobin 148 mg/dL [facility] Work Phone: Comment on above: Performed at: [facility] [address] [id number] Director: Lars Browne PhD, Phone: [phone] at: [facility] [address] [id number] Director: Aung Araujo MD, Phone: [phone] Hepatitis A IgM Antibody Negative Negative [facility] Work Phone: Hepatitis B Core IgM Antibody Negative Negative [facility] Work Phone: Hepatitis C Antibody (EIA) <0.1 s/co ratio [facility] Work Phone: Hepatitis C Antibody Comment Comment [facility] Work Phone: Comment on above: NegativeNot infected with HCV, unless recent infection issuspected or other evidence exists to indicate HCVinfection. Serum classic neutrophil cyt oplasmic antibody assay (units/volume)on 01-15-2022 Neutrophil cytoplasmic Ab.classic Qn (S) <1:20 titer Neg:<1:20 [facility] Work Phone: Serum mitochondria antibody detectionon 01-15-2022 Mitochondria Ab Ql (S) <20.0 Units W [facility] Work Phone: Comment on above: Negative 0.0 - 20.0 Equivocal 20.1 - 24.9 Positive >24.9Mitochondrial (M2) Antibodies are found in 90-96% ofpatients with primary biliary cirrhosis.Performed at: [id number] [place], [place] [id number] Director: Lars Browne PhD, Phone: [phone] Serum or plasma actin IgG an tibody assay (units/volume)on 01-15-2022 Actin IgG Qn 3 Units [facility] Work Phone: Comment on above: Negative 0 - 19 Weak positive 20 - 30 Moderate to strong positive >30 Actin Antibodies are found in 52-85% of patients with autoimmune hepatitis or chronic active hepatitis and in 22% of patients with primary biliary cirrhosis. Serum or plasma [id number] protein tumor marker measurement (units/volume)on 01-15-2022 AFP.tumor marker Qn 3.8 ng/mL [facility] Work Phone: Comment on above: [employer] El ectrochemiluminescence Immunoassay(ECLIA)Values obtained with different assay methods or kits cannotbe used interchangeably. Results cannot be interpreted asabsolute evidence of the presence or absence of malignantdisease.This test is not interpretable in females. Serum or plasma angiotensin converting enzyme measurement (enzymatic activity/volume)on 01-15-2022 Angiotensin converting enzyme [Catalytic activity/Vol] 21 U/L [facility] Work Phone: Serum or plasma cholesterol in HDL measurement (mass/volume)on 01-15-2022 Cholesterol in HDL [Mass/Vol] 26 mg/dL [facility] Work Phone: Comment on above: The drugs N-Acetylcy steine and Metamizole may falsely depress this assay. Reference Range HDL <40 mg/dL Low HDL Cholesterol HDL >or= 60 mg/dL High HDL Cholesterol Serum or plasma cholesterol in VLDL measurement (mass/volume)on 01-15-2022 Cholesterol in VLDL [Mass/Vol] 57 mg/dL 5-40 [facility] Work Phone: Serum or plasma ferritin ruchi surement (mass/volume)on 01-15-2022 Ferritin [Mass/Vol] 76 ng/mL 8-252 [facility] Work Phone: Serum or plasma hepatitis B virus surface antigen detection by immunoassayon 01-15-2022 HBV surface Ag IA Ql Negative Negative [facility] Work Phone: Serum or plasma low density lipoprotein (LDL) cholesterol measurement (mass/volume)on 01-15-2022 Cholesterol in LDL [Mass/Vol] 51 mg/dL 0-130 [facility] Work Phone: Serum perinuclear neutrophil cytoplasmic antibody titer by immunofluorescenceon 01-15-2022 Neutrophil cytoplasmic Ab.perinuclear IF (S) [Titer] <1:20 titer Neg:<1:20 [facility] Work Phone: Comment on above: The presence of posi tive fluorescence exhibiting P-ANCA orC-ANCA patterns alone is not specific for the diagnosis ofWegener's Granulomatosis (WG) or microscopic polyangiitis.Decisions about treatment should not be based solely onANCA IFA results. The [employer] ANCA [employer] Consensusrecommends follow up testing of positive sera with both NC-3 and MPO-ANCA enzyme immunoassays. As many as 5% serumsamples are positive only by EIA. Ref. AM J Clin [id number];111:507-513. Thin prep Papanicolaou smear with manual screeningon 01-15-2022 Thin prep Papanicolaou smear with manual screening 160 ug/dL [facility] Work Phone: Comment on above: Detection Limit = 5 Whole blood hemoglobin A1c/t otal hemoglobin ratio (mass fraction)on 01-15-2022 HbA1c (Bld) [Mass fraction] 7.1 % 3.8-5.6 [facility] Work Phone: Comment on above: Normal < 5.7 % Predi abetic 5.7 - 6.4 % Diabetic >or= 6.5 % Please note range changes. URINE CULTUREon 01-11-2022 Bacteria identified Cx Nom (U) >=100,000 CFU/ml Klebsiella pneumoniae Abnormal [facility] Urinalysis complete panel (U )on 01-10-2022 Bilirubin Ql (U) Negative Negative [facility] Clarity (Unsp spec) Clear Clear [facility] Color (U) Straw Yellow [facility] Epithelial cells LM.HPF (Urine sed) [#/Area] Few [facility] Glucose Test strip (U) [Mass/Vol] Negative Negative [facility] Hemoglobin Ql (U) 2+ Abnormal Negative [facility] Ketones Ql (U) Negative Negative [facility] Leukocyte esterase Test strip Ql (U) 1+ Abnormal Negative [facility] Nitrite Ql (U) Negative Negative [facility] pH (U) 6.0 [pH] 5.0 - 8.0 [facility] Protein (U) [Mass/Vol] Negative Negative Cl [facility] RBC LM.HPF (Urine sed) [#/Area] /[HPF] Abnormal 0-3 /HPF [facility] Specific gravity (U) [Rel density] 1.009 1.005 - 1.030 [facility] Urobilinogen Ql (U) Negative Negative [facility] WBC LM.HPF (Urine sed) [#/Area] 0-5 /HPF 0-5 /HPF [facility] UA DIP, URINE (POC)on 2021 BILIRUBIN UA (POCT) Negative Negative [facility] CLARITY UA (POCT) Clear [facility] COLOR UA (POCT) Yellow [facility] GLUCOSE UA (POCT) Negative Negative mg/dL [facility] HEMOGLOBIN/BLOOD UA (POCT) Large Abnormal Negative [facility] KETONE UA (POCT) Negative Negative mg/dL [facility] LEUKOCYTES UA (POCT) Trace Abnormal Negative [facility] NITRITE UA (POCT) Negative Negative [facility] PH UA (POCT) 5.0 4.5 - 8.0 [facility] Protein Ql (U) Negative Negative mg/dL [facility] SPECIFIC GRAVITY UA (POCT) 1.020 1.005 - 1.030 [facility] UROBILINOGEN UA (POCT) 0.2 E.U./dL Leonie l E.U./dL [facility] URINE CULTUREon 01-09-2022 Bacteria identified Cx Nom (U) Invalid Interpretation Code [facility] Giardia lamblia ag stool EIA on 12-15-2021 G. lamblia Ag IA Ql (Stl) Negative Negative [facility] Work Phone: Comment on above: Performed at: [address] [id number] Director: Lars Browne PhD, Phone: [phone] Absolute lymphocyte counton 12-14-2021 Lymphocytes Auto (Unsp spec) [#/Vol] 3.94 10*3/uL 0.83-4.51 [facility] Work Phone: Basophil percentageon 2021 Basophil percentage < 0.2 [facility] Work [facility]: Basophils/100 WBC (Bld) 0.6 % 0-1 [facility] Work Phone: Bilirubin [Mass/Vol] 0.20 mg/dL 0.20-1.00 [facility] Work Phone: Comment on above: For patients on eltr ombopag therapy, use of Dimension [place] TBIL is not recommended. Chloride [Moles/Vol] 108 mmol/L 98-107 [facility] Work Phone: Eosinophils/100 WBC (Bld) 2.6 % 0-5 [facility] Work Phone: Glucose [Mass/Vol] 174 mg/dL 74-106 [facility] Work Phone: [phone] Comment on above: Fasting Glucose resu lt greater than or equal to 126 mg/dL suggests DIABETES MELLITUS per A.D.A. criteria. Neutrophils (Bld) [#/Vol] 4.8 10*3/uL 2.0-7.7 [facility] Work Phone: Neutrophils/100 WBC (Bld) 49.5 % 47-70 [facility] Work Phone: Potassium [Moles/Vol] 4.1 mmol/L 3.5-5.1 [facility] Work Phone: Protein [Mass/Vol] 7.7 g/dL 6.4-8.2 [facility] Work Phone: Sodium [Moles/Vol] 137 mmol/L 136-145 [facility] Work Phone: WBC (Bld) [#/Vol] 9.8 10*3/uL 4.4-11.0 [facility] Work Phone: Blood erythrocytes count (nu mber/volume)on 12-14-2021 RBC (Bld) [#/Vol] 5.29 10*6/uL 4.2-5.4 [facility] Work Phone: Blood hemoglobin measurement (mass/volume)on 12-14-2021 Hemoglobin (Bld) [Mass/Vol] 15.6 g/dL 12.0-15.0 [facility] Work Phone: Blood lymphocytes/100 leukoc yteson 12-14-2021 Lymphocytes/100 WBC (Bld) 40.4 % 19-41 [facility] Work Phone: Blood monocytes/100 leukocyt eson 12-14-2021 Monocytes/100 WBC (Bld) 6.6 % 0-10 [facility] Work Phone: Blood platelet mean volumeon 12-14-2021 Platelet mean volume (Bld) [Entitic vol] 9.8 fL 6.2-12.0 [facility] Work Phone: Determination of erythrocyte mean corpuscular volume (MCV)on 12-14-2021 MCV (RBC) [Entitic vol] 86.0 fL 81-99 [facility] Work Phone: Direct bilirubinon 2 Bilirubin.direct [Mass/Vol] 0.07 mg/dL 0.00-0.30 [facility] Work Phone: Erythrocyte sedimentation ra lore 12-14-2021 ESR (Bld) [Velocity] 8 mm/h 0-30 [facility] Work Phone: Hematocrit Auto (Bld) [Volum e fraction]on 12-14-2021 Hematocrit (Bld) [Volume fraction] 45.5 % 37-47 [facility] Work Phone: Laboratory - Chemistry and C hemistry - challengeon 12-14-2021 ALP [Catalytic activity/Vol] 80 U/L 45-117 [facility] Work Phone: ALT [Catalytic activity/Vol] 27 U/L 13-56 [facility] Work Phone: CO2 [Moles/Vol] 24.0 mmol/L 21.0-32.0 [facility] Work Phone: Globulin (S) [Mass/Vol] 3.9 g/dL 2.2-4.2 [facility] Work Phone: Urea nitrogen/Creatinine [Mass ratio] 26.7 mg/mg 10-20 [facility] Work Phone: Laboratory - Hematology and Cell countson 12-14-2021 Erythrocyte distribution width (RBC) [Entitic vol] 41.4 fL 35.1-43.9 [facility] Work Phone: Erythrocyte distribution width (RBC) [Ratio] 13.4 % 11.6-14.6 [facility] Work Phone: Immature granulocytes/100 WBC (Bld) 0.300 % 0.0-0.9 [facility] Work Phone: Comment on above: IG% - Immature Granu locytes (promyelocytes, myelocytes and metamyelocytes) > 1% indicates that a LEFT SHIFT is Present. MCH (RBC) [Entitic mass] 29.5 pg 27.0-32.0 [facility] Work Phone: Nucleated RBC/100 WBC (Bld) [Ratio] 0 % 0-5 [facility] Work Phone: MCHC Auto (RBC) [Mass/Vol]on 12-14-2021 MCHC (RBC) [Mass/Vol] 34.3 g/dL 32-36 [facility] Work Phone: No Panel Informationon 12-14 Centromere B Antibody <0.2 AI [facility] Work Phone: Endomysial IgA Antibody Negative Negative [facility] Work Phone: Estimated GFR (MDRD) Amer 122 mL/min >60 [facility] Work Phone: Comment on above: GFR Calc Estimated GFR (MDRD) Non-Af Amer 101 mL/min >60 [facility] Work Phone: Comment on above: Non- GFR Calc CLOTH PATTERN MAKER Antibody 0.2 AI [facility] Work Phone: Thyroid Stimulating Hormone (TSH) 0.93 uIU/mL 0.358-3.74 [facility] Work Phone: Platelets bldon 12-14-2021 Platelets (Bld) [#/Vol] 298 10*3/uL 150-450 [facility] Work Phone: Serum DNA double strand anti body assay (units/volume)on 12-14-2021 DNA double strand Ab Qn (S) [IU]/mL [facility] Work Phone: Comment on above: Negative <5 Equivoca l 5 - 9 Positive >9 Serum Miguelina-1 antibody assay (u nits/volume)on 12-14-2021 Miguelina-1 extractable nuclear Ab Qn (S) <0.2 [facility] Work Phone: Serum Scl-70 extractable nuc lear antibody assay (units/volume)on 12-14-2021 SCL-70 extractable nuclear Ab Qn (S) <0.2 [facility] Work Phone: Serum Ashraf extractable nucl ear antibody detectionon 12-14-2021 Ashraf extractable nuclear Ab Ql (S) <0.2 [facility] Work Phone: Serum or plasma C reactive p rotein measurement (mass/volume)on 12-14-2021 CRP [Mass/Vol] mg/L 0.0-3.0 [facility] Work Phone: Comment on above: C-Reactive Protein ( CRP) provides useful information for thediagnosis, therapy and monitoring of inflammatory processesand associated diseases. For the evaluation of Relative Riskfor Cardiovascular Disease, a High Sensitivity CRP (HSCRP)should be ordered. Serum or plasma IgA measurem ent (mass/volume)on 12-14-2021 IgA [Mass/Vol] 231 mg/dL [facility] Work Phone: Serum or plasma albumin pradip urement (mass/volume)on 12-14-2021 Albumin [Mass/Vol] 3.8 g/dL 3.2-5.0 [facility] Work Phone: Serum or plasma albumin/glob ulin mass ratioon 12-14-2021 Albumin/Globulin [Mass ratio] 1.0 {ratio} 0.9-2.4 [facility] Work Phone: Serum or plasma calcium pradip urement (mass/volume)on 12-14-2021 Calcium [Mass/Vol] 8.3 mg/dL 8.5-10.1 [facility] Work Phone: Serum or plasma creatinine m easurement (mass/volume)on 12-14-2021 Creatinine [Mass/Vol] 0.64 mg/dL 0.55-1.02 [facility] Work Phone: Comment on above: The validity of the calculated GFR & GFRAA in patients over 70 years has not been determined. Clinical correlation is essential. Serum or plasma gastrin pradip urement (mass/volume)on 12-14-2021 Gastrin [Mass/Vol] 26 pg/mL [facility] Work Phone: Comment on above: Siemens Immulite 200 0 Immunochemiluminometric assay (ICMA)Values obtained with different assay methods or kits cannotbe used interchangeably. Results cannot be interpreted asabsolute evidence of the presence or absence of malignantdisease.Performed at: [facility] [id number] Director: Lars Browne PhD, Phone: [phone] at: [facility] [employer] [id number] Director: Aung Araujo MD, Phone: [phone] Serum or plasma urea nitroge n measurement (mass/volume)on 12-14-2021 Urea nitrogen [Mass/Vol] 17 mg/dL 7-18 [facility] Work Phone: Serum tissue transglutaminas e IgA antibody assay (units/volume)on 12-14-2021 tTG IgA Qn (S) <2 U/mL [facility] Work Phone: Comment on above: Negative 0 - 3 Weak Positive 4 - 10 Positive >10 Tissue Transglutaminase (tTG) has been identified as the endomysial antigen. Studies have demonstr- ated that endomysial IgA antibodies have over 99% specificity for gluten sensitive enteropathy. Thin prep Papanicolaou smear with manual screeningon 12-14-2021 Thin prep Papanicolaou smear with manual screening 31 U/L 15-37 [facility] Work Phone: Thin prep Papanicolaou smear with manual screening 5 5-15 [facility] Work Phone: Thin prep Papanicolaou smear with manual screening 194 U/L 84-246 [facility] Work Phone: XR Chest PA and Lateralon IMPRESSION: Stable exam without acute findings. 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: LOIVE Transcribe Date/Time: Aug 14 2021 4:30P Dictated by : CLAUDIA WILSON MD This examination was interpreted and the report reviewed and electronically signed by: CLAUDIA WILSON MD on Aug 14 2021 4:30PM [facility] DIVISION OF RADIOLOGY * * *Final Report* * * DATE OF EXAM: Aug 14 2021 4:16PM WOX [id number] - XR CHEST 2V FRONTAL/LAT / PROCEDURE REASON: multiple diagnoses * * * * Physician Interpretation * * * * EXAMINATION: CHEST RADIOGRAPH (2 VIEW FRONTAL & LATERAL) CLINICAL HISTORY: Chest pain, unspecified type Cough MQ: XC2_6 EXAM DATE/TIME: 08/14/2021 4:16 PM COMPARISON: Chest x-ray on 03/22/2021. RESULT: Lines, tubes, and devices: None. Lungs and pleura: No consolidation. No lung mass. No pleural effusion. No pneumothorax. Cardiomediastinal silhouette: Stable cardiomediastinal silhouette. Bones and soft tissues: There are degenerative changes in the spine. DIVISION OF RADIOLOGY Provider, Elaina Felicita Nieves - 08/14/2021 * * *Final Report* * * DATE OF EXAM: Aug 14 2021 4:16PM WOX [id number] - XR CHEST 2V FRONTAL/LAT / PROCEDURE REASON: multiple diagnoses * * * * Physician Interpretation * * * * EXAMINATION: CHEST RADIOGRAPH (2 VIEW FRONTAL & LATERAL) CLINICAL HISTORY: Chest pain, unspecified type Cough MQ: XC2_6 EXAM DATE/TIME: 08/14/2021 4:16 PM COMPARISON: Chest x-ray on 03/22/2021. RESULT: Lines, tubes, and devices: None. Lungs and pleura: No consolidation. No lung mass. No pleural effusion. No pneumothorax. Cardiomediastinal silhouette: Stable cardiomediastinal silhouette. Bones and soft tissues: There are degenerative changes in the spine. IMPRESSION IMPRESSION: Stable exam without acute findings. 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: [employer] [place] Transcribe Date/Time: Aug 14 2021 4:30P Dictated by : CLAUDIA WILSON MD This examination was interpreted and the report reviewed and electronically signed by: CLAUDIA WILSON MD on Aug 14 2021 4:30PM EST [facility] Radiology Study observation (narrative) [facility] XR Chest PA and LateralOrder ed By: [facility] Provider on 08-14-2021 [facility] XR Chest PA and Lateralon IMPRESSION: No acute radiographic abnormality. 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: [employer] Transcribe Date/Time: Mar 22 2021 7:32P Dictated by : ÁLVARO LOUISE MD This examination was interpreted and the report reviewed and electronically signed by: ÁLVARO LOUISE MD on Mar 22 2021 7:33PM [facility] DIVISION OF RADIOLOGY * * *Final Report* * * DATE OF EXAM: Mar 22 2021 7:29PM WOX 5291 - XR CHEST 2V FRONTAL/LAT / PROCEDURE REASON: Cough * * * * Physician Interpretation * * * * EXAMINATION: CHEST RADIOGRAPH (2 VIEW FRONTAL & LATERAL) CLINICAL HISTORY: Cough MQ: XC2_6 EXAM DATE/TIME: 03/22/2021 7:29 PM COMPARISON: 10/07/2019 RESULT: Lines, tubes, and devices: None. Lungs and pleura: No consolidation. No lung mass. No pleural effusion. No pneumothorax. Cardiomediastinal silhouette: Normal cardiomediastinal silhouette. Bones and soft tissues: Degenerative changes are present within the thoracic spine. Aortic atherosclerosis. DIVISION OF RADIOLOGY Provider, [facility] Felicita [facility] - 03/22/2021 * * *Final Report* * * DATE OF EXAM: Tre 14 2021 7:29PM WOX 5291 - XR CHEST 2V FRONTAL/LAT / PROCEDURE REASON: Cough * * * * Physician Interpretation * * * * EXAMINATION: CHEST RADIOGRAPH (2 VIEW FRONTAL & LATERAL) CLINICAL HISTORY: Cough MQ: XC2_6 EXAM DATE/TIME: 03/22/2021 7:29 PM COMPARISON: 10/07/2019 RESULT: Lines, tubes, and devices: None. Lungs and pleura: No consolidation. No lung mass. No pleural effusion. No pneumothorax. Cardiomediastinal silhouette: Normal cardiomediastinal silhouette. Bones and soft tissues: Degenerative changes are present within the thoracic spine. Aortic atherosclerosis. IMPRESSION IMPRESSION: No acute radiographic abnormality. 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: [facility] COUNTY[facility] Transcribe Date/Time: Mar 22 2021 7:32P Dictated by : ÁLVARO LOUISE MD This examination was interpreted and the report reviewed and electronically signed by: ÁLVARO LOUISE MD on Mar 22 2021 7:33PM EST [facility] Radiology Study observation (narrative) [facility] XR Chest PA and LateralOrder ed By: [facility] Provider on 03-22-2021 [facility] XR Lumbar spine Views W flex ion and W extensionon 08-17-2020 IMPRESSION: Degenerative changes as discussed. See discussion in result section of report for remainder of findings 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: [facility] Transcribe Date/Time: Aug 17 2020 3:48P Dictated by : ABHIJEET MOYER DO This examination was interpreted and the report reviewed and electronically signed by: ABHIJEET MOYER DO on Aug 17 2020 3:50PM [facility] DIVISION OF RADIOLOGY * * *Final Report* * * DATE OF EXAM: Aug 17 2020 3:39PM WOX [id number] - XR LUMBAR 4V AP/LAT/ FLEX/EXT / PROCEDURE REASON: S/P lumbar laminectomy * * * * Physician Interpretation * * * * LUMBAR SPINE: EXAM DATE/TIME: 08/17/2020 3:39 PM HISTORY: 60 years old Indication: S/P lumbar laminectomy right posterior hip pain and numbness that radites to the right toes. Has surgery 4 months ago TECHNIQUE: Views obtained: XR LUMBAR 4V AP/LAT/ FLEX/EXT Comparison: None. RESULT: Findings: Tubal ligation clips noted in each side of the pelvis Marked disc space narrowing L1-2. Extensive degenerative changes in the posterior elements L3-S1. Mild S-shaped scoliosis. Mild posterior positioning of L1 on L2 and L2 on L3 which resolves with flexion Marked increase in the lordotic curvature of the spine No fractures or dislocations are seen. DIVISION OF RADIOLOGY Provider, Eliu puckett [place] - 08/17/2020 * * *Final Report* * * DATE OF EXAM: Aug 17 2020 3:39PM WOX 5231 - XR LUMBAR 4V AP/LAT/ FLEX/EXT / PROCEDURE REASON: S/P lumbar laminectomy * * * * Physician Interpretation * * * * LUMBAR SPINE: EXAM DATE/TIME: 08/17/2020 3:39 PM HISTORY: 60 years old Indication: S/P lumbar laminectomy right posterior hip pain and numbness that radites to the right toes. Has surgery 4 months ago TECHNIQUE: Views obtained: XR LUMBAR 4V AP/LAT/ FLEX/EXT Comparison: None. RESULT: Findings: Tubal ligation clips noted in each side of the pelvis Marked disc space narrowing L1-2. Extensive degenerative changes in the posterior elements L3-S1. Mild S-shaped scoliosis. Mild posterior positioning of L1 on L2 and L2 on L3 which resolves with flexion Marked increase in the lordotic curvature of the spine No fractures or dislocations are seen. IMPRESSION IMPRESSION: Degenerative changes as discussed. See discussion in result section of report for remainder of findings 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: OLIVE Transcribe Date/Time: Aug 17 2020 3:48P Dictated by : ABHIJEET MOYER DO This examination was interpreted and the report reviewed and electronically signed by: ABHIJEET MOYER DO on Aug 17 2020 3:50PM EST [facility] Radiology Study observation (narrative) [facility] XR Lumbar spine Views W flex ion and W extensionOrdered By: [facility] Provider on 08-17-2020 [facility] PROGRESSon 08-16-2020 PROGRESS HNO ID: [id number] Author: Deirdre Rosado) Ilana Service: ? Author Type: Physician Sales Agent Financial Report Service Type: Progress Notes Filed: 08/16/2020 10:41 AM Note Text: SPINE SURGERY FOLLOW UP SERVICE DATE: 08/16/2020 SURGERY DATE: 04/27/2020 Garland De Santiago is seen for 4 month post operative follow up. Ms. De Santiago is s/p L4 laminectomy, decompression of L4-5 canal stenosis with bilateral L4, L5 root foraminotomies on 04/27/2020. Pre-operatively, she complained of bilateral lower extremity pain, right greater than left with difficulty ambulating and associated groin numbness. She was last evaluated via [facility] on 05/17/2020. At that time, she was having issues with constipation, though reported improvement in her back pain. She reported improvement to the numbness in her bilateral feet and groin. Per home health nursing, incision was healthy with no signs of infection. Today, she reports she has been having constant back pain present with any activity. She reported increased pain with ambulation, pain worse with lifting. The pain returned approximately three weeks ago. Prior to that incident her back was feeling well. She continues to have numbness down the lateral aspect of the right leg with some numbness in the toes, . The fingers in her right hand are also numb. She is taking gabapentin 600 mg in the morning and 900 mg at night. She previously took Flexeril which did help with her back pain though she is out of that. PAIN EVALUATION No data found in the last 1 encounters. ANTIPLATELET OR ANTICOAGULATION STATUS: No Patient Entered Questionnaires Spine Questions 05/14/2020 Pain Location: Leg Pain Duration: 1-3 months Symptoms from neck/cervical spine: Yes Employment Status: Disabled for reasons other than back pain Involved in law suit/legal claim: No Neck Questionnaires 05/14/2020 Benzel Modified LOAN Score 17 (A lower score indicates increased pain and issues.) PROMIS Score Percentiles Physical Health 05/14/2020 Physical Function Percentile 7 Sleep Percentile 27* Fatigue Percentile 8 Pain Interference Percentile 4 Social Health 05/14/2020 Social Role Satisfaction Percentile 5 PROMIS Global Health Scale 05/14/2020 05/14/2020 Physical Health Percentile 10 10 Mental Health Percentile 5 5 Percentiles provide an indication of how the patient's score ranks in relation to the general population. Higher percentile rankings indicate better function/quality of life. 50th percentile is the average of the general population and indicates half of respondents had a worse score. Depression Screening: PHQ-9 06/23/2019 05/14/2020 05/14/2020 Score 0 8 8 PHQ-9 Self-harm Question 06/23/2019 05/14/2020 05/14/2020 Thoughts that you would be better off , or of hurting yourself in some way 0 0 0 PHQ-9 Self-Harm (Item 9) response options: 0 Not at all 1 Several days 2 More than half the days 3 Nearly every day PHQ-9 Levels: 0-4 No to mild depression 5-9 Mild depression 10-14 Moderate depression 15-19 Moderately severe depression 20-27 Severe depression PHYSICAL EXAM: There were no vitals taken for this visit. Telephone Visit ASSESSMENT/PLAN No diagnosis found. Ms. De Santiago is s/p L4 laminectomy, decompression of L4-5 canal stenosis with bilateral L4, L5 root foraminotomies on 04/27/2020. She was doing well post-operatively, though she reported worsening low back pain for the past three weeks. She has continued lower extremity numbness. At this time, we will obtain an x-ray of the lumbar spine to assess for any post-operative structural changes, and I have sent a prescription for Flexeril to her pharmacy. We will call her back on completion of her x-rays for further treatment. We discussed potential referral to Physical Therapy if her x-rays are unremarkable. She is happy with this and we will follow up with her on completion of her x-rays. Garland De Santiago has a condition that requires further workup. 1. Imaging: Lumbar X-Ray 2. Follow up: Following above The majority of the visit was spent counseling and/or coordinating care for the patient. The patient was counseled regarding low back pain, radiculopathy. Total face to face time was 20 minutes. SIGNATURE: Deirdre Naidu PA-C PATIENT NAME: Garland De Santiago DATE: August 16, 2020 TIME: 10:09 AM PAGER: [facility] PROGRESSon 05-17-2020 PROGRESS HNO ID: [id number] Author: Deirdre Preciado (Pa) Service: ? Author Type: Physician Sales Agent Financial Report Service Type: Progress Notes Filed: 05/17/2020 10:13 AM Note Text: SPINE SURGERY FOLLOW UP SERVICE DATE: 05/17/2020 SURGERY DATE: 04/27/2020 Garland De Santiago is seen for 2 week post operative follow up. Ms. De Santiago is s/p L4 laminectomy, decompression of L4-5 canal stenosis with bilateral L4, L5 root foraminotomies on 04/27/2020. Pre-operatively, she complained of bilateral lower extremity pain, right greater than left with difficulty ambulating and associated groin numbness. She called in on 05/02/2020 complaining of pain radiating down the posterior aspect of the legs with some muscular cramping, as well as consitpation. Mobic and Flexeril were sent to her pharmacy and it was recommended that she decrease her her narcotic consumption and try magnesium citrate for constipation. Today, she states she is doing okay. She states she doesn't really feel a difference with the Mobic or Flexeril. She states she is having issues with constipation. Her stools were loose in consistency but becoming more normal recently. She states she feels she is not able to completely empty her bowels. She has only taken on narcotic pain pill over the last few days and states her back pain is improving. She states the pain in her bilateral feet which she attributed to neuropathy has greatly improved. She reports the numbness in her groin has resolved though she does have some numbness traveling down the posterolateral right leg to the toes. She has a home health nurse who has been coming to her home and reports her incision looks great, is healing well and shows no signs of infection. ANTIPLATELET OR ANTICOAGULATION STATUS: No Patient Entered Questionnaires Spine Questions 05/14/2020 Pain Location: Leg Pain Duration: 1-3 months Symptoms from neck/cervical spine: Yes Employment Status: Disabled for reasons other than back pain Involved in law suit/legal claim: No Neck Questionnaires 05/14/2020 Benzel Modified LOAN Score 17 (A lower score indicates increased pain and issues.) PROMIS Score Percentiles Physical Health 05/14/2020 Physical Function Percentile 7 Sleep Percentile 27* Fatigue Percentile 8 Pain Interference Percentile 4 Social Health 05/14/2020 Social Role Satisfaction Percentile 5 PROMIS Global Health Scale 05/14/2020 05/14/2020 Physical Health Percentile 10 10 Mental Health Percentile 5 5 Percentiles provide an indication of how the patient's score ranks in relation to the general population. Higher percentile rankings indicate better function/quality of life. 50th percentile is the average of the general population and indicates half of respondents had a worse score. Depression Screening: PHQ-9 06/23/2019 05/14/2020 05/14/2020 Score 0 8 8 PHQ-9 Self-harm Question 06/23/2019 05/14/2020 05/14/2020 Thoughts that you would be better off , or of hurting yourself in some way 0 0 0 PHQ-9 Self-Harm (Item 9) response options: 0 Not at all 1 Several days 2 More than half the days 3 Nearly every day PHQ-9 Levels: 0-4 No to mild depression 5-9 Mild depression 10-14 Moderate depression 15-19 Moderately severe depression 20-27 Severe depression PHYSICAL EXAM: There were no vitals taken for this visit. Telephone Visit DATA REVIEW [facility] records reviewed Imaging and outside records reviewed ASSESSMENT/PLAN No diagnosis found. Ms. De Santiago is s/p L4 laminectomy, decompression of L4-5 canal stenosis with bilateral L4, L5 root foraminotomies on 04/27/2020. She reports improvement in her pre-operative symptoms but is struggling with constipation. At this time, she will discuss her constipation with Dr. Estrada. She will follow up with us in three months. Garland De Santiago will continue with medical management of his/her condition. 1. No Orders Entered Today 2. Follow up: Three months The majority of the visit was spent counseling and/or coordinating care for the patient. The patient was counseled regarding post-operative pain, constipation, activity and wound care. Total face to face time was 10 minutes. SIGNATURE: Gerri Small MD PATIENT NAME: Garland De Santiago DATE: May 17, 2020 TIME: 9:13 AM [facility] Telephone (NSFRVW) ----- GARLAND DE SANTIAGO ([id number]) 1960 F Date Time Provider Department 05/06/20 DEIRDRE PRECIADO) NSFRVW During your visit today, we recorded the following information about you: Deirdre Naidu PA-C 05/06/2020 1:03 PM Signed I called. Ms. De Santiago on 05/06/2020 at 12:54 PM. She reports she is having pain radiating down the posterior aspect of the legs intermittently with some muscular cramping. She is also having issues with constipation. I informed her that I sent a prescription for Mobic and Flexeril to her pharmacy. I advised that she can use magnesium citrate for constipation. She is aware that if she has increased pain over the weekend she can go to the ED for pain control. Advised that narcotics can cause constipation. If her pain is worsening over the weekend she will let us know on Saturday. Allergies As of Date: 05/06/2020 Noted Allergy Reaction DILAUDID (HYDROMORPHONE (BULK)) 11/16/2010 1 - Mental Status Change DUST MITES 02/13/2007 PAXIL (PAROXETINE) 02/17/2019 5 - Intolerance Comments: excessive sweating PENICILLINS 05/01/2005 4 - Hives 14 - Other: See Comments Comments: Any medication with penicillin in it. Had been given amoxicillin in 2011 and had reaction Given test dose of 2cc's on 08/17/2019 causing sever flushing along with hypotension PROZAC (FLUOXETINE HCL) 05/01/2005 1 - Mental Status Change 6 - Diarrhea PSEUDOEPHEDRINE 09/21/2015 5 - Intolerance Comments: Heart racing VICODIN (HYDROCODONE-ACETAMINOPHE *09/07/2019 8 - GI Upset Date Reviewed: 04/30/2020 Reviewed by: Sabino Smith) HOWARD Somers - Fully Assessed Reason for Visit: Surgical Followup [104] Prescriptions as of 05/06/2020 Sig: MELOXICAM 15 MG TABLET Take 1 tablet by mouth once d* CYCLOBENZAPRINE 10 MG TABLET Take 1 tablet by mouth three * OXYCODONE-ACETAMINOPHEN 5 MG-* Take 1-2 tablets by mouth senia* UREA 40 % TOPICAL CREAM Apply to affected area as nee* LISINOPRIL 20 MG TABLET Take 1 tablet by mouth once d* METFORMIN 500 MG TABLET Take 1 tablet by mouth twice * SERTRALINE 100 MG TABLET Take 2 tablets by mouth once * ALPRAZOLAM 0.5 MG TABLET Take 1 tablet by mouth at bed* OMEPRAZOLE 20 MG CAPSULE,KIT* Take 1 capsule by mouth twice* BENZONATATE 100 MG CAPSULE Take 2 capsules by mouth thre* CETIRIZINE 10 MG TABLET Take 1 tablet by mouth once d* FLUTICASONE PROPIONATE 50 MCG* Use 1 [place] in each nostril o* GABAPENTIN 300 MG CAPSULE Take 2 capsules by mouth once* ALBUTEROL SULFATE HFA 90 MCG/* Inhale 2 Puffs as instructed * SHINGRIX (PF) 50 MCG/0.5 ML I* Inject 0.5 mL intramuscularly* BUSPIRONE 15 MG TABLET Take 0.5 tablets by mouth twi* GEMFIBROZIL 600 MG TABLET Take 1 tablet by mouth twice * TRUE METRIX GLUCOSE TEST STRIP Test blood sugars twice a day* BLOOD-GLUCOSE METER KIT Insurance covered or per antonio* BLOOD SUGAR DIAGNOSTIC STRIPS Test blood sugar(s) 2 times d* LANCETS Test blood sugar(s) 2 times d* ATENOLOL 50 MG TABLET Take 1 tablet by mouth once d* FUROSEMIDE 20 MG TABLET Take 1 tablet by mouth once d* TRAZODONE 100 MG TABLET Take 1 tablet by mouth daily * CLOTRIMAZOLE-BETAMETHASON E 1 * Apply 1 application to affect* FLUTICASONE FUROATE 100 MCG-V* Inhale 1 Inhalation as instru* POTASSIUM CHLORIDE ER 10 MEQ * Take 1 tablet by mouth daily * ALBUTEROL SULFATE 2.5 MG/3 ML* Use 3 mL via nebulizer every * IPRATROPIUM BROMIDE 0.02 % SO* Use 2.5 mL via nebulizer four* TRIAMCINOLONE ACETONIDE 0.1 %* Apply 1 application to affect* NYSTATIN 100,000 UNIT/GRAM TO* Apply 1 application to affect* UREA 40 % LOTION Apply 1 application to affect* COMPOUNDED PRESCRIPTION NEBULIZER FOR HOME USE. DX: * BIPAP Initiate BiPAP @ 20/14 cm of * Problem List As Of Date 05/06/2020 Noted Resolved Essential hypertension [I10] 05/23/2006 Elevated CK [R74.8] 05/23/2006 More... Impaired fasting glucose [R73.01] 05/23/2006 05/08/2017 Mixed hyperlipidemia [E78.2] 05/23/2006 12/21/2013 Calculus of gallbladder with other cholecystiti*10/18/2006 12/15/2013 Allergic rhinitis [J30.9] 02/10/2007 Asthma [J45.909] 02/10/2007 PURE HYPERGLYCERIDEMIA [E78.1] 02/10/2007 Cephalgia [R51] 08/15/2011 01/04/2015 Internal hemorrhoids without mention of complic*12/13/2011 Hemorrhage of gastrointestinal tract, unspecifi*12/13/2011 12/15/2013 Diarrhea [R19.7] 12/13/2011 01/04/2015 Tobacco use [Z72.0] 12/09/2012 Headache [R51] 10/30/2013 Rhinitis [J31.0] 10/30/2013 Laryngitis [J04.0] 10/30/2013 01/04/2015 Pain in joint, lower leg [M25.569] 05/03/2015 Abdominal discomfort, epigastric [R10.13] 02/09/2016 Obesity (BMI 30.0-34.9) [E66.9] Type 2 diabetes mellitus without complication, *02/01/2017 Depression [F32.9] Neck pain, musculoskeletal [M54.2] 03/08/2019 YARY (obstructive sleep apnea) [G47.33] More... DM type 2 (diabetes mellitus, type 2) (HCC) [E1* Anxiety [F41.9] Cauda equina compression (HCC) [G83.4] 04/27/2020 Lumbar stenosis [M48.061] 04/27/2020 Lumbar spinal stenosis [M48.061] 04/27/2020 Nicotine use disorder, F17.2 [F17.200] 04/28/2020 Encounter Status:Closed by DEIRDRE PRECIADO PA-C on 05/06/20 [facility] 05-05-2020 [facility] Telephone (NEADFV) ----- GARLAND DE SANTIAGO ([id number]) 1960 F Date Time Provider Department 05/05/20 GERRI SMALL During your visit today, we recorded the following information about you: Osiris Kinsey Pss 05/05/2020 10:37 AM Signed Patient called stating her insurance won't pay for the prescription of pain meds that was sent because of the way that its written. Per patient, the prescription has to specify that she is taking two at a time. For questions call patient at [phone]. Cresencio Nguyen Sec 05/05/2020 3:19 PM Signed Patient states the Percocet script should be to take two at a time. Please call her pharmacy to clarify. She uses [facility]. Their phone number is [phone]. Cresencio Nguyen Sec Deirdre Naidu PA-C 05/05/2020 3:29 PM Signed PDMP report unable to be viewed, medication sent to pharmacy. Sriram Bolanos, RN, RN 05/05/2020 3:38 PM Signed Spoke to [facility] pharmacist rx was sent correctly It was just to soon for refill. new rx was sent with increased dose. [facility] 11:12 AM Signed Patient calling and states she hasn't been able to sleep, wakes up in severe pain, wants to know if this is normal. Should she be taking something such as anti-inflammatory medication? Patient is asking for a call back at M [phone] Deirdre Naidu PA-C 05/06/2020 11:27 AM Signed I will send an anti-inflammatory to her pharmacy. The other alternative would be a steroid, though she is an uncontrolled diabetic and has not had her A1C checked since June of 2019. We will try the anti-inflammatory and if that does not alleviate her pain we can re-evaluate. Usman has been sent to her pharmacy. I will also send a muscle relaxer which I recommend taking only as needed, but may help her at night. Deirdre Nadiu PA-C 05/06/2020 11:27 AM Signed Addended by: DEIRDRE PRECIADO PA-C on: 05/06/2020 11:27 AM Modules accepted: Orders Allergies As of Date: 05/05/2020 Noted Allergy Reaction DILAUDID (HYDROMORPHONE (BULK)) 11/16/2010 1 - Mental Status Change DUST MITES 02/13/2007 PAXIL (PAROXETINE) 02/17/2019 5 - Intolerance Comments: excessive sweating PENICILLINS 05/01/2005 4 - Hives 14 - Other: See Comments Comments: Any medication with penicillin in it. Had been given amoxicillin in 2011 and had reaction Given test dose of 2cc's on 08/17/2019 causing sever flushing along with hypotension PROZAC (FLUOXETINE HCL) 05/01/2005 1 - Mental Status Change 6 - Diarrhea PSEUDOEPHEDRINE 09/21/2015 5 - Intolerance Comments: Heart racing VICODIN (HYDROCODONE-ACETAMINOPHE *09/07/2019 8 - GI Upset Date Reviewed: 04/30/2020 Reviewed by: Sabino (Rn) HOWARD Somers - Fully Assessed Reason for Visit: Medication Problem [65] Primary Visit Diagnosis:Post-op pain [G89.18] Order(s):oxyCODONE-acetam inophen (PERCOCET) 5-325 mg tabletTake 1-2 tablets by mouth every 6 hours as needed (for pain.) for up to 7 days.Disp: 28 tabletRfl: 0 meloxicam (MOBIC) 15 mg tabletTake 1 tablet by mouth once daily.Disp: 30 tabletRfl: 1 cyclobenzaprine (FLEXERIL) 10 mg tabletTake 1 tablet by mouth three times daily as needed for Muscle Spasm or Pain.Disp: 30 tabletRfl: 0 Prescriptions as of 05/05/2020 Sig: MELOXICAM 15 MG TABLET Take 1 tablet by mouth once d* CYCLOBENZAPRINE 10 MG TABLET Take 1 tablet by mouth three * OXYCODONE-ACETAMINOPHEN 5 MG-* Take 1-2 tablets by mouth senia* UREA 40 % TOPICAL CREAM Apply to affected area as nee* LISINOPRIL 20 MG TABLET Take 1 tablet by mouth once d* METFORMIN 500 MG TABLET Take 1 tablet by mouth twice * SERTRALINE 100 MG TABLET Take 2 tablets by mouth once * ALPRAZOLAM 0.5 MG TABLET Take 1 tablet by mouth at bed* OMEPRAZOLE 20 MG CAPSULE,KIT* Take 1 capsule by mouth twice* BENZONATATE 100 MG CAPSULE Take 2 capsules by mouth thre* CETIRIZINE 10 MG TABLET Take 1 tablet by mouth once d* FLUTICASONE PROPIONATE 50 MCG* Use 1 [place] in each nostril o* GABAPENTIN 300 MG CAPSULE Take 2 capsules by mouth once* ALBUTEROL SULFATE HFA 90 MCG/* Inhale 2 Puffs as instructed * SHINGRIX (PF) 50 MCG/0.5 ML I* Inject 0.5 mL intramuscularly* BUSPIRONE 15 MG TABLET Take 0.5 tablets by mouth twi* GEMFIBROZIL 600 MG TABLET Take 1 tablet by mouth twice * TRUE METRIX GLUCOSE TEST STRIP Test blood sugars twice a day* BLOOD-GLUCOSE METER KIT Insurance covered or per antonio* BLOOD SUGAR DIAGNOSTIC STRIPS Test blood sugar(s) 2 times d* LANCETS Test blood sugar(s) 2 times d* ATENOLOL 50 MG TABLET Take 1 tablet by mouth once d* FUROSEMIDE 20 MG TABLET Take 1 tablet by mouth once d* TRAZODONE 100 MG TABLET Take 1 tablet by mouth daily * CLOTRIMAZOLE-BETAMETHASON E 1 * Apply 1 application to affect* FLUTICASONE FUROATE 100 MCG-V* Inhale 1 Inhalation as instru* POTASSIUM CHLORIDE ER 10 MEQ * Take 1 tablet by mouth daily * ALBUTEROL SULFATE 2.5 MG/3 ML* Use 3 mL via nebulizer every * IPRATROPIUM BROMIDE 0.02 % SO* Use 2.5 mL via nebulizer four* TRIAMCINOLONE ACETONIDE 0.1 %* Apply 1 application to affect* NYSTATIN 100,000 UNIT/GRAM TO* Apply 1 application to affect* UREA 40 % LOTION Apply 1 application to affect* COMPOUNDED PRESCRIPTION NEBULIZER FOR HOME USE. DX: * BIPAP Initiate BiPAP @ 20/14 cm of * Problem List As Of Date 05/05/2020 Noted Resolved Essential hypertension [I10] 05/23/2006 Elevated CK [R74.8] 05/23/2006 More... Impaired fasting glucose [R73.01] 05/23/2006 05/08/2017 Mixed hyperlipidemia [E78.2] 05/23/2006 12/21/2013 Calculus of gallbladder with other cholecystiti*10/18/2006 12/15/2013 Allergic rhinitis [J30.9] 02/10/2007 Asthma [J45.909] 02/10/2007 PURE HYPERGLYCERIDEMIA [E78.1] 02/10/2007 Cephalgia [R51] 08/15/2011 01/04/2015 Internal hemorrhoids without mention of complic*12/13/2011 Hemorrhage of gastrointestinal tract, unspecifi*12/13/2011 12/15/2013 Diarrhea [R19.7] 12/13/2011 01/04/2015 Tobacco use [Z72.0] 12/09/2012 Headache [R51] 10/30/2013 Rhinitis [J31.0] 10/30/2013 Laryngitis [J04.0] 10/30/2013 01/04/2015 Pain in joint, lower leg [M25.569] 05/03/2015 Abdominal discomfort, epigastric [R10.13] 02/09/2016 Obesity (BMI 30.0-34.9) [E66.9] Type 2 diabetes mellitus without complication, *02/01/2017 Depression [F32.9] Neck pain, musculoskeletal [M54.2] 03/08/2019 YARY (obstructive sleep apnea) [G47.33] More... DM type 2 (diabetes mellitus, type 2) (HCC) [E1* Anxiety [F41.9] Cauda equina compression (HCC) [G83.4] 04/27/2020 Lumbar stenosis [M48.061] 04/27/2020 Lumbar spinal stenosis [M48.061] 04/27/2020 Nicotine use disorder, F17.2 [F17.200] 04/28/2020 Prescriptions ordered this encounter Disp Refills Start End OXYCODONE-ACETAMINOPHEN 5 MG-325 MG * 28 t* 0 05/05/2020 05/12/2020 Route: ORAL Sig: Take 1-2 tablets by mouth every 6 hours as needed (for pain.) for up to 7 days. MELOXICAM 15 MG TABLET 30 t* 1 05/06/2020 Route: ORAL Sig: Take 1 tablet by mouth once daily. CYCLOBENZAPRINE 10 MG TABLET 30 t* 0 05/06/2020 Route: ORAL Sig: Take 1 tablet by mouth three times daily as needed for Muscle Spasm or Pain. Medications Discontinued During This Encounter Prescriptions - oxyCODONE-acetaminophen (PERCOCET) 5-325 mg tablet (Discontinued) Take 1 tablet by mouth every 6 hours as needed for Pain for up to 7 days. Encounter Status:Closed by SRIRAM BOLANOS on 05/05/20 [facility] 05-04-2020 [facility] Telephone (NSFRVW) ----- ANYIGARLAND Kohli ([id number]) 1960 F Date Time Provider Department 05/04/20 GERRI SMALL NSFRVW During your visit today, we recorded the following information about you: Cresencio Wendy Sec 05/04/2020 1:32 PM Signed Patient states she was told to lower the dose to one tablet, but one tablet was not controlling her pain so she's been taking 2. Physician: Carmen Call from patient requesting refill. Last OV: 04/27/20 (surgery) with Dr. Small Future OV: 05/17/[address] Small Pending Prescriptions Disp Refills OXYCODONE-ACETAMINOPHEN 5 MG-325 MG TABLET 28 tablet 0 Sig: Take 1 tablet by mouth every 6 hours as needed for Pain for up to 7 days. BRENNA Class: C-II LUCY: No Creesncio TheresaJose Carlos Sec Allergies As of Date: 05/04/2020 Noted Allergy Reaction DILAUDID (HYDROMORPHONE (BULK)) 11/16/2010 1 - Mental Status Change DUST MITES 02/13/2007 PAXIL (PAROXETINE) 02/17/2019 5 - Intolerance Comments: excessive sweating PENICILLINS 05/01/2005 4 - Hives 14 - Other: See Comments Comments: Any medication with penicillin in it. Had been given amoxicillin in 2011 and had reaction Given test dose of 2cc's on 08/17/2019 causing sever flushing along with hypotension PROZAC (FLUOXETINE HCL) 05/01/2005 1 - Mental Status Change 6 - Diarrhea PSEUDOEPHEDRINE 09/21/2015 5 - Intolerance Comments: Heart racing VICODIN (HYDROCODONE-ACETAMINOPHE *09/07/2019 8 - GI Upset Date Reviewed: 04/30/2020 Reviewed by: Sabino (Howard) HOWARD Somers - Fully Assessed Reason for Visit: Refill Request [94] Visit Diagnosis:Post-op pain [G89.18] Order(s):oxyCODONE-acetam inophen (PERCOCET) 5-325 mg tabletTake 1 tablet by mouth every 6 hours as needed for Pain for up to 7 days.Disp: 28 tabletRfl: 0 Prescriptions as of 05/04/2020 Sig: OXYCODONE-ACETAMINOPHEN 5 MG-* Take 1 tablet by mouth every * UREA 40 % TOPICAL CREAM Apply to affected area as nee* LISINOPRIL 20 MG TABLET Take 1 tablet by mouth once d* METFORMIN 500 MG TABLET Take 1 tablet by mouth twice * SERTRALINE 100 MG TABLET Take 2 tablets by mouth once * ALPRAZOLAM 0.5 MG TABLET Take 1 tablet by mouth at bed* OMEPRAZOLE 20 MG CAPSULE,KIT* Take 1 capsule by mouth twice* BENZONATATE 100 MG CAPSULE Take 2 capsules by mouth thre* CETIRIZINE 10 MG TABLET Take 1 tablet by mouth once d* FLUTICASONE PROPIONATE 50 MCG* Use 1 [place] in each nostril o* GABAPENTIN 300 MG CAPSULE Take 2 capsules by mouth once* ALBUTEROL SULFATE HFA 90 MCG/* Inhale 2 Puffs as instructed * SHINGRIX (PF) 50 MCG/0.5 ML I* Inject 0.5 mL intramuscularly* BUSPIRONE 15 MG TABLET Take 0.5 tablets by mouth twi* GEMFIBROZIL 600 MG TABLET Take 1 tablet by mouth twice * TRUE METRIX GLUCOSE TEST STRIP Test blood sugars twice a day* BLOOD-GLUCOSE METER KIT Insurance covered or per antonio* BLOOD SUGAR DIAGNOSTIC STRIPS Test blood sugar(s) 2 times d* LANCETS Test blood sugar(s) 2 times d* ATENOLOL 50 MG TABLET Take 1 tablet by mouth once d* FUROSEMIDE 20 MG TABLET Take 1 tablet by mouth once d* TRAZODONE 100 MG TABLET Take 1 tablet by mouth daily * CLOTRIMAZOLE-BETAMETHASON E 1 * Apply 1 application to affect* FLUTICASONE FUROATE 100 MCG-V* Inhale 1 Inhalation as instru* POTASSIUM CHLORIDE ER 10 MEQ * Take 1 tablet by mouth daily * ALBUTEROL SULFATE 2.5 MG/3 ML* Use 3 mL via nebulizer every * IPRATROPIUM BROMIDE 0.02 % SO* Use 2.5 mL via nebulizer four* TRIAMCINOLONE ACETONIDE 0.1 %* Apply 1 application to affect* NYSTATIN 100,000 UNIT/GRAM TO* Apply 1 application to affect* UREA 40 % LOTION Apply 1 application to affect* COMPOUNDED PRESCRIPTION NEBULIZER FOR HOME USE. DX: * BIPAP Initiate BiPAP @ cm of * Problem List As Of Date 05/04/2020 Noted Resolved Essential hypertension [I10] 05/23/2006 Elevated CK [R74.8] 05/23/2006 More... Impaired fasting glucose [R73.01] 05/23/2006 05/08/2017 Mixed hyperlipidemia [E78.2] 05/23/2006 12/21/2013 Calculus of gallbladder with other cholecystiti*10/18/2006 12/15/2013 Allergic rhinitis [J30.9] 02/10/2007 Asthma [J45.909] 02/10/2007 PURE HYPERGLYCERIDEMIA [E78.1] 02/10/2007 Cephalgia [R51] 08/15/2011 01/04/2015 Internal hemorrhoids without mention of complic*12/13/2011 Hemorrhage of gastrointestinal tract, unspecifi*12/13/2011 12/15/2013 Diarrhea [R19.7] 12/13/2011 01/04/2015 Tobacco use [Z72.0] 12/09/2012 Headache [R51] 10/30/2013 Rhinitis [J31.0] 10/30/2013 Laryngitis [J04.0] 10/30/2013 01/04/2015 Pain in joint, lower leg [M25.569] 05/03/2015 Abdominal discomfort, epigastric [R10.13] 02/09/2016 Obesity (BMI 30.0-34.9) [E66.9] Type 2 diabetes mellitus without complication, *02/01/2017 Depression [F32.9] Neck pain, musculoskeletal [M54.2] 03/08/2019 YARY (obstructive sleep apnea) [G47.33] More... DM type 2 (diabetes mellitus, type 2) (HCC) [E1* Anxiety [F41.9] Cauda equina compression (HCC) [G83.4] 04/27/2020 Lumbar stenosis [M48.061] 04/27/2020 Lumbar spinal stenosis [M48.061] 04/27/2020 Nicotine use disorder, F17.2 [F17.200] 04/28/2020 Prescriptions ordered this encounter Disp Refills Start End OXYCODONE-ACETAMINOPHEN 5 MG-325 MG * 28 t* 0 05/04/2020 05/11/2020 Route: ORAL Sig: Take 1 tablet by mouth every 6 hours as needed for Pain for up to 7 days. Medications Discontinued During This Encounter Prescriptions - oxyCODONE-acetaminophen (PERCOCET) 5-325 mg tablet (Discontinued) Take 1 tablet by mouth every 6 hours as needed for Pain for up to 7 days. Encounter Status:Closed by VANESSA GUILLERMO PA-C on 05/04/20 Normal [facility] Basic Metabolic Panlon 04-30 Anion gap [Moles/Vol] 12 mmol/L Normal 9-18 [facility] Comment on above: Performed By: #### C BC, BMP ####[place] [phone] Calcium [Mass/Vol] 8.8 mg/dL Normal 8.5-10.5 [facility] Comment on above: Performed By: #### C BC, BMP ####[place] [phone] Chloride [Moles/Vol] 100 mmol/L Normal 98-110 [facility] Comment on above: Performed By: #### C BC, BMP ####[place] [phone] CO2 [Moles/Vol] 24 mmol/L Normal 23-32 [facility] Comment on above: Performed By: #### C BC, BMP ####[place] [phone] Creatinine [Mass/Vol] 0.66 mg/dL Low 0.70-1.40 [facility] Comment on above: Performed By: #### C BC, BMP ####[place] [phone] eGFR- Amer. >60 Normal >60 [facility] Comment on above: Performed By: #### C BC, BMP ####[place] [phone] GFR/1.73 sq M predicted among non-blacks MDRD (S/P/Bld) [Vol rate/Area] mL/min/{1.73_m2} Normal >60 [facility] Comment on above: Performed By: #### C BC, BMP ####[place] [phone] Glucose [Mass/Vol] 194 mg/dL High 65-100 [facility] Comment on above: Performed By: #### C BC, BMP ####[place] [phone] Potassium [Moles/Vol] 3.7 mmol/L Normal 3.5-5.0 [facility] Comment on above: Performed By: #### C BC, BMP ####[phone] Sodium [Moles/Vol] 136 mmol/L Normal 132-148 [facility] Comment on above: Performed By: #### C BC, BMP ####[place] [phone] Urea nitrogen [Mass/Vol] 20 mg/dL Normal 8-25 [facility] Comment on above: Performed By: #### C BC, BMP ####[phone] CBCon 04-30-2020 Absolute nRBC <0.01 Normal <0.01 [facility] Comment on above: Performed By: #### C BC, BMP #### [phone] Erythrocyte distribution width (RBC) [Ratio] 13.4 % Normal 11.5-15.0 [facility] Comment on above: Performed By: #### C BC, BMP #### [place] [phone] Hematocrit (Bld) [Volume fraction] 39.7 % Normal 36.0-46.0 [facility] Comment on above: Performed By: #### C BC, BMP #### [place] [phone] Hemoglobin (Bld) [Mass/Vol] 13.0 g/dL Normal 11.5-15.5 [facility] Comment on above: Performed By: #### C BC, BMP #### [place] [phone] MCH (RBC) [Entitic mass] 27.8 pG Normal 26.0-34.0 [facility] Comment on above: Performed By: #### C BC, BMP #### [place] [phone] MCHC (RBC) [Mass/Vol] 32.7 g/dL Normal 30.5-36.0 [facility] Comment on above: Performed By: #### C HIREN, BMP #### [place] [phone] MCV (RBC) [Entitic vol] 85.0 fL Normal 80.0-100.0 [facility] Comment on above: Performed By: #### C HIREN, BMP #### [place] [phone] Platelet mean volume (Bld) [Entitic vol] 9.9 fL Normal 9.0-12.7 [facility] Comment on above: Performed By: #### C HIREN, BMP #### [place] [phone] Platelets (Bld) [#/Vol] 330 10*3/uL Normal 150-400 [facility] Comment on above: Performed By: #### C BC, BMP #### [place] [phone] RBC (Bld) [#/Vol] 4.67 10*6/uL Normal 3.90-5.20 [facility] Comment on above: Performed By: #### C BC, BMP #### [place] [address] WBC (Bld) [#/Vol] 13.32 10*3/uL High 3.70-11.00 [facility] Comment on above: Performed By: #### C BC, BMP #### [facility] [address] [place] [address] NURSING PROGon 04-30-2020 NURSING PROG HNO ID: [id number] Author: Tarik Smith) HOWARD English Service: ? Author Type: Registered Nurse Type: Nursing Progress Note Filed: 04/29/2020 10:07 PM Note Text: Nursing Progress Note Patient Name: Garland De Santiago Patient Location: [facility]/ Daily Note:04/29/202047 Pt is alert and oriented x3, in stable condition. Lung sounds are clear and equal on 2L NC. Bowel sounds are present in all quadrants. Dry sterile dressing to back is clean, dry and intact. LR infusing @ 50 ml/hr. Pt ambulates independently in the room and to bathroom. Will continue to monitor. This note was completed by: Tarik English RN [facility] PROGRESSon 04-30-2020 PROGRESS HNO ID: [id number] Author: Deirdre Preciado (Pa) Service: Neurosurgery Author Type: Physician Sales Agent Financial Report Service Type: Progress Notes Filed: 04/30/2020 8:20 AM Note Text: NEUROSURGERY POST OP PROGRESS NOTE SERVICE DATE: 04/30/2020 SERVICE TIME: 8:18 AM POST OP DAY: # 1 SUBJECTIVE Patient states that the preoperative symptoms of leg pain and numbness are improved. The patient reports her leg pain has resolved, she still has some numbness in the buttock area. Her back pain is well controlled and she is up moving comfortably. OBJECTIVE General: AANDOx 3, NAD, ANDRE well. Incision: dressing CDI. Drain: no drain. Clarke: no clarke. Most recent labs and imaging results.. Current Facility-Administered Medications Medication Dose Route Frequency - sodium chloride 0.9 % (flush) 3-5 mL (BD POSIFLUSH) 3-5 mL INTRAVENOUS q 12 H - nicotine 21 mg/24 hr 1 Patch (NICODERM) 1 Patch TRANSDERMAL DAILY And - nicotine -- REMOVE patch OTHER DAILY And - nicotine - verify patch OTHER q 8 H - busPIRone 7.5 mg tab(s) (BUSPAR) 7.5 mg ORAL BID - loratadine 10 mg tab(s) (CLARITIN) 10 mg ORAL DAILY - gabapentin 600 mg cap(s) (NEURONTIN) 600 mg ORAL DAILY - atenolol 50 mg tab(s) (TENORMIN) 50 mg ORAL DAILY - pantoprazole DR 20 mg tab(s) (PROTONIX) 20 mg ORAL BID AC (0600/1600) - sertraline 200 mg tab(s) (ZOLOFT) 200 mg ORAL DAILY - traZODone 100 mg tab(s) (DESYREL) 100 mg ORAL AT BEDTIME - gabapentin 900 mg cap(s) (NEURONTIN) 900 mg ORAL DAILY AT 9 PM - [MAR Hold due to Transfer] hydrALAZINE 10 mg injection (APRESOLINE) 10 mg INTRAVENOUS q 6 H PRN - dextrose 40 % 15 g 15 g ORAL PRN Or - glucagon 1 mg injection 1 mg INTRAMUSCULAR PRN Or - dextrose 50% in water 25 mL syringe 12.5 g INTRAVENOUS PRN - ipratropium-albuterol 3 mL nebulizer solution (DUONEB) 3 mL INHALATION q 4 H while awake - ALPRAZolam 0.5 mg tab(s) (XANAX) 0.5 mg ORAL HS PRN - fluticasone-vilanterol 100-25 mcg/dose 1 Inhalation (BREO ELLIPTA) 1 Inhalation INHALATION DAILY - furosemide 20 mg tab(s) (LASIX) 20 mg ORAL DAILY - insulin lispro injection (rapid acting) (HumaLOG) SUBCUTANEOUS q 6 H - oxyCODONE-acetaminophen 5-325 mg 1-2 tablet (PERCOCET) 1-2 tablet ORAL q 6 H PRN - morphine 2 mg injection 2 mg INTRAVENOUS q 2 H PRN - ketorolac 15 mg injection (TORADOL) 15 mg INTRAVENOUS q 6 H - cyclobenzaprine 10 mg tab(s) (FLEXERIL) 10 mg ORAL TID - ondansetron 4 mg tab(s) (ZOFRAN) 4 mg ORAL q 6 H PRN Or - ondansetron (PF) 4 mg injection (ZOFRAN) 4 mg INTRAVENOUS q 6 H PRN - docusate sodium 100 mg cap(s) (COLACE) 100 mg ORAL BID - [START ON 05/01/2020] bisacodyl 10 mg suppository (DULCOLAX) 10 mg RECTAL DAILY PRN - acetaminophen 325-650 mg tab(s) (TYLENOL) 325-650 mg ORAL q 4 H PRN - metFORMIN 500 mg tab(s) (GLUCOPHAGE) 500 mg ORAL BID w MEALS - lisinopril 20 mg tab(s) (ZESTRIL, PRINIVIL) 20 mg ORAL DAILY - gemfibrozil 600 mg tab(s) (LOPID) 600 mg ORAL BID AC ASSESSMENT AND PLAN Patient Active Hospital Problem List: Essential hypertension (05/23/2006) Obesity (BMI 30.0-34.9) () Type 2 diabetes mellitus without complication, without long-term current use of insulin (HCC) (02/01/2017) Cauda equina compression (HCC) (04/27/2020) Lumbar spinal stenosis (04/27/2020) Nicotine use disorder, F17.2 (04/28/2020) Medication and Non-Pharmacologic VTE Prophylaxis/Anticoagulant s 04/29/20 1845 vte pharmacologic prophylaxis contraindicated (fl,oh) 04/29/20 1845 pneumatic compression stockings (dc,oh) 04/29/20 1845 activity - mobilize patient (dc,ga) 04/27/20 0345 pneumatic compression stockings (dc,oh) 04/27/20 0345 graduated compression stockings (dc,ga) 04/27/20 0345 activity - mobilize patient (dc,ga) VTE Prophylaxis: VTE prophylaxis appropriate Garland De Santiago is a 59 year old status post L4 laminectomy, decompression of L4-5 canal stenosis with bilateral L4, L5 root foraminotomies. Recommend increasing activity, physical therapy , occupational therapy, discharge planning and pain control. Post-operative discharge instructions have been entered and Percocet sent to her pharmacy. Okay from neurosurgery standpoint to discharge when cleared by therapy and her primary service. SIGNATURE: Deirdre Naidu PA-C PATIENT NAME: Garland De Santiago DATE: April 30, 2020 TIME: 8:18 AM PAGER/CONTACT #: ETX#[phone] [facility] THERAPY NTon 04-30-2020 THERAPY NT HNO ID: [id number] Author: Gisel (Pt) Thalia Service: Physical Therapy Author Type: Physical Therapist Type: Therapy (PT/OT/Speech/Resp) Filed: 04/30/2020 12:39 PM Note Text: Physical Therapy Evaluation SERVICE DATE: 04/30/2020 SERVICE TIME: 810 ROOM: [place] [address] Recommended Discharge Disposition: Home Anticipated Discharge Needs: Physical Assist at Home;Equipment Physical Assist at Home for: Cleaning;Laundry;Shopping ;Transportation PT Recommendations to Nursing: Ambulate without device;To bathroom;In halls PT 6 Clicks Score: 24 Precautions/Activity Restrictions: Bed/Chair Alarm;Fall Risk;Lines/Tubes/Drains;S pine;Other: See Comments(Regular Diet) ASSESSMENT : Patient is performing all functional mobility at or near their functional baseline with adequate safety awareness. Patient does not require skilled Physical Therapy services at this time and has adequate support and social structure for reasonably safe discharge home at current level. Patient Disposition at Start of Session: Sitting Edge of Bed Patient Disposition at End of Session: OOB in Chair;Call [facility] in Reach Tolerated Full Session Physical Therapy Problem List: Other: See Comment Patient /Caregiver Goals: Go Home Goals for Plan of Care: PLAN: Treatment Frequency (times per week): Discontinue Therapy Services Reasons Therapy Services Discontinued: Independent in all functional mobility;No skilled needs Current admission Treatment Interventions: Education;Functional Mobility Training Plan of Care developed with: Patient TREATMENT INTERVENTIONS: Therapy Diagnosis: No Skilled Need Interventions Provided: Evaluation;Gait Training (35343) $ Evaluation-Low (09048) Billed Units: 1 unit Gait Training (82388) Treatment Minutes: 9 1 unit Skilled Intervention(s): Instruction in sit to stand technique with proper hand placement and body positioning at edge of bed/chair, Instruction in correction of gait deviations, Instruction in stair negotiation and importance of mobility and position changes; instructed in spine precautions and related to mobility and home situations; demonstrated each precaution, pt performed log roll without difficulty; gait is steady Total Timed Code Treatment Minutes: 9 Total Treatment Time (minutes): 24 SUBJECTIVE: Current Hospital Course: Chart reviewed; S/P L4 Laminectomy, Decompression Of L4-5 Canal Stenosis With Bilateral L4, L5 Root Foraminotomies Reason for Physical Therapy Consult : post-op instructions Relevant Past Medical History: Obesity 197 lbs, Smoker, DM II, YARY, Lumbar Stenosis, Rt TKR, Refer to [facility] Patient Report: I feel good Home Environment Patient Lives With: Other: See Comment(Two Friends (couple), stays on 1st level) Assistance Available: PRN;Other: See Comment(friends available for assist) Entry To Home: Stairs;With Rail Number Of Stairs Into Home: 2 Number Of Stairs To Bed/Bath: 0 Tub/Shower Type: Tub/Shower Laundry: 1st level Equipment Owned: Commode-Bedside;Grab Bars-Shower;Wheeled Walker Prior Functional Level: Within Functional Limits;Required Assistance Assistance Required With: Shopping;Cleaning Prior Functional Level Comments: Per Pt, she was independent with ADL's, laundry, and shares all other IADL's. pt ambulated independently, and drives. OBJECTIVE: CURRENT FUNCTIONAL STATUS: Current Functional Mobility Assist Level Additional Information Rolling Modified Independent Supine to Sit Modified Independent Sit to Supine Modified Independent Scooting Modified Independent Sit to Stand Modified Independent Stand to Sit Modified Independent Bed to Chair Toilet/Commode Gait Supervision Gait Distance (feet): 250 Stairs Supervision Stairs Device: Rail Number of Stairs: 4 Curb Step Car Transfer Balance: Static Standing Static Standing Balance: Good Patient able to maintain balance without handhold support, limited postural sway -M: 8: Walk 250 feet or more Please see discipline specific clinical documentation flowsheet for complete details for this therapy evaluation/treatment. SIGNATURE: Gisel Vásquez PT PATIENT NAME: Garland De Santiago DATE: April 30, 2020 TIME: 12:37 PM [facility] THERAPY NT HNO ID: [id number] Author: Roxi (OtAureliano Diana Service: Occupational Therapy Author Type: Occupational Therapist Type: Therapy (PT/OT/Speech/Resp) Filed: 04/30/2020 10:55 AM Note Text: Occupational Therapy Evaluation SERVICE DATE: 04/30/2020 SERVICE TIME: 45 to 08 ROOM: [place] [address] Transfer From [facility] With BLE Pain X 4 Days, And Symptoms Concerning For Cauda Equina, L4-5 Lumbar Spinal Stenosis With Neurogenic Claudication, S/P L4 Laminectomy, Decompression Of L4-5 Canal Stenosis With Bilateral L4, L5 Root Foraminotomies 04/29/20 Recommended Discharge Disposition: Home Anticipated Discharge Needs: Physical Assist at Home;Equipment Physical Assist at Home for: Cleaning;Laundry;Shopping ;Transportation Recommended Discharge Equipment: Elastic Shoe Laces;Grab Bars-Shower;Hand Held Shower;Long Handled Shoe Horn;Side Seam Envelope Machine Operator;Shower Chair;Long Handled Sponge OT Recommendations to Nursing: To Bathroom for ADL?s /and or Toileting;OOB for meals;Transfer to Chair;Other: See Comment(Pt has been up independent in room) Equipment: Other: See Comment(no device required) OT 6 Clicks Score: 24 Precautions/Activity Restrictions: Bed/Chair Alarm;Fall Risk;Lines/Tubes/Drains;S pine;Other: See Comments(Regular Diet) ASSESSMENT: Pt is a 59 year old female Transfer From [facility] With BLE Pain X 4 Days, And Symptoms Concerning For Cauda Equina, L4-5 Lumbar Spinal Stenosis With Neurogenic Claudication, S/P L4 Laminectomy, Decompression Of L4-5 Canal Stenosis With Bilateral L4, L5 Root Foraminotomies 04/29/20. Pt presents with decreased ability to complete ADL's, and IADL's independently requiring assist at this time. Pt also presents with decreased activity tolerance, functional mobility, strength, and safety. Pt is on disability, and enjoys counted cross stitch, playing games on her phone, watching movies, gardening, and [place]. Pt resides with a couple on their horse farm, and is staying with them while she pays to get her teeth fixed. Pt plans to move into her own place in spring 2020. Pt has two children, however stated they do not reside in the area. Pt is up independently in the room, and has ambulated the unit prior to OT evaluation this morning. Pt has adequate support and social structure for reasonably safe discharge home at current level. Pt has no skilled needs, and was discharged from OT services today. Patient Disposition at Start of Session: Sitting on Edge of Bed;Call [facility] in Reach Patient Disposition at End of Session: OOB in Chair;Call [facility] in Reach Tolerated Full Session Occupational Therapy Problem List: Safety Deficits;Impaired Self Care;Decreased Activity Tolerance;Decreased Strength Patient /Caregiver Goals: Go Home Goals for Plan of Care: Lower Body Bathing with: Modified Independent Lower Body Dressing with: Modified Independent Tolerate (minutes of functional activity): 30 Functional Activity with: Modified Independent Demonstrate Competence With Education with: Independent Progress Toward Goals: Progressing as expected Rehab Potential: Good PLAN: Treatment Frequency (times per week): Discontinue Therapy Services Reasons Therapy Services Discontinued: Goals met;Independent in all functional mobility;No skilled needs Treatment Interventions: Education;Self Care / Home Management;Energy Conservation Training Plan of Care developed with: Patient TREATMENT INTERVENTIONS: Therapy Diagnosis: Decreased activities of daily living (ADL);Muscle Weakness (generalized) Interventions Provided: Evaluation;Therapeutic Activity (90794) $ Evaluation-Low (54033) Billed Units: 1 unit Therapeutic Activity (57341) Treatment Minutes: 10 1 unit Skilled Intervention(s): Instructed/demonstrated the log roll technique with no difficulty noted. Pt was educated with spine precautions, and provided multiple printed material. Instructed patient in supine to sit pushing with upper extremities to sit up Instructed patient in sit to supine using safe, effective technique Instruction in sit to stand technique with proper hand placement and body positioning at edge of bed/chair Instruction in stand to sit technique with lower extremities touching chair/bed and reaching back for surface Pt educated with role/benefit of OT services, discharge options, fall precautions, walker safety, recommended DME/AE, and provided printed material. Pt completed safe functional transfer from bed to chair with WW for support. Pt instructed with deep breathing techniques while seated at EOB, and educated with energy conservation techniques and pacing self as pertaining to ADL's. Pt educated regarding fall precautions in room, and requested Pt call staff for any assist. Pt verbalized understanding of all precautions. Total Timed Code Treatment Minutes: 10 Total Treatment Time (minutes): 25 SUBJECTIVE: Current Hospital Course: Chart reviewed; Transfer From [facility] With BLE Pain X 4 Days, And Symptoms Concerning For Cauda Equina, L4-5 Lumbar Spinal Stenosis With Neurogenic Claudication, S/P L4 Laminectomy, Decompression Of L4-5 Canal Stenosis With Bilateral L4, L5 Root Foraminotomies 04/29/20 Reason for Occupational Therapy Consult: L4,5 Lumbar Spinal Stenosis With neurogenic Claudication, S/P L4 Lami, Decompression Of L4,5 Canal Stenosis, and Bilateral L4,5 Root Foraminotomies, Refer to [facility] Relevant Past Medical History: Obesity 197 lbs, Smoker, DM II, YARY, Lumbar Stenosis, Rt TKR, Refer to [facility] Patient Report: I am feeling pretty good Home Environment Patient Lives With: Other: See Comment(Two Friends (couple), stays on 1st level) Assistance Available: PRN;Other: See Comment(friends available for assist) Entry To Home: Stairs;With Rail Number Of Stairs Into Home: 2 Number Of Stairs To Bed/Bath: 0 Tub/Shower Type: Tub/Shower Laundry: 1st level Equipment Owned: Commode-Bedside;Grab Bars-Shower;Wheeled Walker Prior Functional Level: Within Functional Limits;Required Assistance Assistance Required With: Shopping;Cleaning Prior Functional Level Comments: Per Pt, she was independent with ADL's, laundry, and shares all other IADL's. Pt ambulated independently, and drives. OBJECTIVE: Cognition/Communication Deficits Responsiveness: Alert;Awake Follows Commands: 3-step Commands Psychosocial Deficit: h/o depression and anxiety CURRENT FUNCTIONAL STATUS: Current Activities of Daily Living Assist Level Feeding Independent Grooming Modified Independent Bathing Upper Body Modified Independent Bathing Lower Body Stand By Assistance Dressing Upper Body Modified Independent Dressing Lower Body Stand By Assistance Toileting Modified Independent Instrumental Activities of Daily Living Assist Level Meal/Beverage Prep Light Cleaning Laundry Medication Management with Strategies Functional Mobility Assist Level Rolling Modified Independent Supine to Sit Modified Independent Sit to Supine Modified Independent Scooting Modified Independent Sit to Stand Modified Independent Stand to Sit Modified Independent Bed to Chair Modified Independent (Pt ambulated hallway with no device required) (None required) Toilet/Commode Functional Mobility Modified Independent Other: See Comment(none) Functional Mobility Comments: (Pt steady with gait) Balance: Static Sitting;Dynamic Sitting;Static Standing;Dynamic Standing Static Sitting Balance: Good Patient able to maintain balance without handhold support, limited postural sway Dynamic Sitting Balance: Good Patient accepts moderate challenge, able to maintain balance while picking up object off floor Static Standing Balance: Good Patient able to maintain balance without handhold support, limited postural sway Dynamic Standing Balance: Good Patient accepts moderate challenge, able to maintain balance while picking up object off floor Activity Tolerance: (no fatigue noted) Please see discipline specific clinical documentation flowsheet for complete details for this therapy evaluation/treatment. SIGNATURE: EMY Mcdonnell/Teri PATIENT NAME: Garland De Santiago DATE: April 30, 2020 TIME: 10:49 AM [facility] ANES POSTPROC EVALon 020 ANES POSTPROC EVAL HNO ID: [id number] Author: Rito York I Service: ? Author Type: Anesthesiologist Type: Anesthesia Postprocedure Evaluation Filed: 04/29/2020 5:46 PM Note Text: POST ANESTHESIA EVALUATION NOTE : 1960 Procedure Summary Date: 04/29/20 Room / Location: OR / [facility] OR Anesthesia Start: 1451 Anesthesia Stop: 1721 Procedure: DECOMPRESSION LAMINECTOMY LUMBAR POSTERIOR LEVEL 1 (N/A Spine Lumbar) Diagnosis: Spinal stenosis of lumbar region, unspecified whether neurogenic claudication present (Spinal stenosis of lumbar region, unspecified whether neurogenic claudication present [M48.061]) Surgeons: Gerri Small Responsible Provider: Rito York I Anesthesia Type: general ASA Status: 3 Anesthesia Type: general Last vitals Vitals Value Taken Time BP 178/92 04/29/20 1731 Pulse 58 04/29/20 1744 Resp 16 04/29/20 1744 SpO2 98 % 04/29/20 1744 Vitals shown include unvalidated device data. Post Anesthesia Patient Status Patient Evaluation: PACU. PACU/ICU Patient Condition: stable. Anticipated Disposition: inpatient floor planned admission. Neurological Status: aware and responsive. Pulmonary Status: breathing comfortably on supplemental oxygen Airway Control: returned to baseline unsupported. Cardiovascular Status: stable. Pain Management: inadequate with additional pain medication ordered/administered. Postoperative Hydration: acceptable. Intraoperative Events: no significant anesthesia events Post Operative Nausea/Vomiting Status: no significant post operative nausea or vomiting Anesthetic Observations: no significant anesthetic observations Recommendation: continue current plan of care. SIGNATURE: Rito York MD PATIENT NAME: Garland De Santiago DATE: April 29, 2020 TIME: 5:45 PM CSN: [id number] [facility] ANES PRE-OPon 04-29-2020 ANES PRE-OP HNO ID: [id number] Author: Apollo Reeder Service: ? Author Type: Anesthesiologist Type: Anesthesia Preprocedure Evaluation Filed: 04/29/2020 2:19 PM Note Text: ANESTHESIOLOGY DAY OF SURGERY NOTE : 1960 Procedure(s) (LRB): DECOMPRESSION LAMINECTOMY LUMBAR POSTERIOR LEVEL 1 (N/A) Surgeon(s): Gerri Small Estimated body mass index is 31.81 kg/m? as calculated from the following: Height as of this encounter: 167.6 cm (5' 6). Weight as of this encounter: 89.4 kg (197 lb 1.6 oz). Most recent hematocrit and potassium results: Hematocrit 43.2 04/29/2020 Potassium 4.3 04/29/2020 Relevant Problems ANESTHESIA (+) YARY (obstructive sleep apnea) CARDIO (+) Essential hypertension (+) Internal hemorrhoids without mention of complication ENDO (+) DM type 2 (diabetes mellitus, type 2) (HCC) (+) Type 2 diabetes mellitus without complication, without long-term current use of insulin (HCC) NEURO-PSYCH (+) Headache PULMONARY (+) Asthma (+) YARY (obstructive sleep apnea) I - PHYSICAL EVALUATION AIRWAY Patient intubated: No. Tracheostomy tube not present Mallampati: II. TM distance: >3 FB. Neck ROM: full ROM without neurological symptoms. Mouth opening: adequate. Short neck: no. Thick neck: no DENTAL Dental findings: poor dentition and missing tooth/teeth. II - ANESTHESIA PLAN ASA Score: 3 Anesthetic Plan: general Airway type: ETT Anesthetic plan additional comments: Patient states that all of her upper teeth will soon be pulled for dentures.. The patient is a current smoker. NPO Status: adequate Monitoring plan: standard ASA. Postoperative analgesic plan: parenteral or oral opioids. Anesthetic Risks, Benefits, Alternatives, Personnel Discussed. Consent obtained from: patient. Patient / Surrogate agrees to blood products: blood products not planned Significant changes in the patient condition since the History and Physical, not otherwise documented in primary service progress note: no. Potential Anesthesia issues that may suggest increased risk of complications or contraindication to planned procedure: none. Vitals Value Taken Time BP 163/82 04/29/20 1342 Pulse 67 04/29/20 1342 Resp 18 04/29/20 1342 Temp 36.4 ?C (97.5 ?F) 04/29/20 1342 SpO2 98 % 04/29/20 1342 Facility-Administered Medications as of 04/29/2020 Medication Dose Route Frequency - [MAR Hold due to Transfer] insulin lispro injection (rapid acting) (HumaLOG) SUBCUTANEOUS q 6 H - acetaminophen 650 mg tab(s) (TYLENOL) 650 mg ORAL Pre-Op Once - promethazine 12.5 mg tab(s) (PHENERGAN) 12.5 mg ORAL Pre-Op Once - lactated ringers infusion 30 mL/hr INTRAVENOUS CONTINUOUS - [MAR Hold due to Transfer] acetaminophen 325-650 mg tab(s) (TYLENOL) 325-650 mg ORAL q 4 H PRN - [MAR Hold due to Transfer] fluticasone-vilanterol 100-25 mcg/dose 1 Inhalation (BREO ELLIPTA) 1 Inhalation INHALATION DAILY - [MAR Hold due to Transfer] furosemide 20 mg tab(s) (LASIX) 20 mg ORAL DAILY - [MAR Hold due to Transfer] sodium chloride 0.9 % (flush) 3-5 mL (BD POSIFLUSH) 3-5 mL INTRAVENOUS q 12 H - [MAR Hold due to Transfer] nicotine 21 mg/24 hr 1 Patch (NICODERM) 1 Patch TRANSDERMAL DAILY And - [MAR Hold due to Transfer] nicotine -- REMOVE patch OTHER DAILY And - [MAR Hold due to Transfer] nicotine - verify patch OTHER q 8 H - [MAR Hold due to Transfer] busPIRone 7.5 mg tab(s) (BUSPAR) 7.5 mg ORAL BID - [MAR Hold due to Transfer] loratadine 10 mg tab(s) (CLARITIN) 10 mg ORAL DAILY - [MAR Hold due to Transfer] gabapentin 600 mg cap(s) (NEURONTIN) 600 mg ORAL DAILY - [MAR Hold due to Transfer] atenolol 50 mg tab(s) (TENORMIN) 50 mg ORAL DAILY - [MAR Hold due to Transfer] gemfibrozil 600 mg tab(s) (LOPID) 600 mg ORAL BID - [MAR Hold due to Transfer] pantoprazole DR 20 mg tab(s) (PROTONIX) 20 mg ORAL BID AC (0600/1600) - [MAR Hold due to Transfer] sertraline 200 mg tab(s) (ZOLOFT) 200 mg ORAL DAILY - [MAR Hold due to Transfer] traZODone 100 mg tab(s) (DESYREL) 100 mg ORAL AT BEDTIME - [MAR Hold due to Transfer] gabapentin 900 mg cap(s) (NEURONTIN) 900 mg ORAL DAILY AT 9 PM - [COMPLETED] traZODone 100 mg tab(s) (DESYREL) 100 mg ORAL ONCE - [COMPLETED] gabapentin 900 mg cap(s) (NEURONTIN) 900 mg ORAL ONCE - [] ketorolac 15 mg injection (TORADOL) 15 mg INTRAVENOUS q 6 H PRN - [MAR Hold due to Transfer] hydrALAZINE 10 mg injection (APRESOLINE) 10 mg INTRAVENOUS q 6 H PRN - [NOV Hold due to Transfer] dextrose 40 % 15 g 15 g ORAL PRN Or - [NOV Hold due to Transfer] glucagon 1 mg injection 1 mg INTRAMUSCULAR PRN Or - [NOV Hold due to Transfer] dextrose 50% in water 25 mL syringe 12.5 g INTRAVENOUS PRN - [NOV Hold due to Transfer] ipratropium-albuterol 3 mL nebulizer solution (DUONEB) 3 mL INHALATION q 4 H while awake - [NOV Hold due to Transfer] dexamethasone sodium phosphate 4 mg injection (DECADRON) 4 mg INTRAVENOUS q 8 H - [NOV Hold due to Transfer] ALPRAZolam 0.5 mg tab(s) (XANAX) 0.5 mg ORAL HS PRN Outpatient Medications as of 04/29/2020 Medication Sig - lisinopril (ZESTRIL, PRINIVIL) 20 mg tablet Take 1 tablet by mouth once daily. - metFORMIN (GLUCOPHAGE) 500 mg tablet Take 1 tablet by mouth twice daily. - sertraline (ZOLOFT) 100 mg tablet Take 2 tablets by mouth once daily. - ibuprofen (MOTRIN) 600 mg tablet Take 1 tablet by mouth every 6 hours as needed for Pain (take with food). - ALPRAZolam (XANAX) 0.5 mg tablet Take 1 tablet by mouth at bedtime as needed for up to 60 days. Do not start before March 02, 2020. - gabapentin (NEURONTIN) 300 mg capsule Take 2 capsules by mouth once daily for 180 days. Then take three capsules at bedtime - busPIRone (BUSPAR) 15 mg tablet Take 0.5 tablets by mouth twice daily. - gemfibrozil (LOPID) 600 mg tablet Take 1 tablet by mouth twice daily. - atenolol (TENORMIN) 50 mg tablet Take 1 tablet by mouth once daily. - furosemide (LASIX) 20 mg tablet Take 1 tablet by mouth once daily. - traZODone (DESYREL) 100 mg tablet Take 1 tablet by mouth daily at bedtime. - potassium chloride (K-TAB) 10 mEq tablet Take 1 tablet by mouth daily with breakfast. - urea (CARMOL) 40 % Apply to affected area as needed. - omeprazole (PRILOSEC) 20 mg capsule Take 1 capsule by mouth twice daily. - benzonatate (TESSALON PERLE) 100 mg capsule Take 2 capsules by mouth three times daily as needed. - cetirizine (ZYRTEC) 10 mg tablet Take 1 tablet by mouth once daily. - fluticasone (FLONASE) 50 mcg/actuation nasal spray Use 1 [place] in each nostril once daily. - albuterol HFA (VENTOLIN HFA) 90 mcg/actuation inhaler Inhale 2 Puffs as instructed every 4 hours as needed. - zoster vaccine, recombinant, adjuvanted, (SHINGRIX, PF,) 50 mcg/0.5 mL injection Inject 0.5 mL intramuscularly now and repeat 2nd dose in 2-6 months - blood sugar diagnostic (TRUE METRIX GLUCOSE TEST STRIP) test strip Test blood sugars twice a day DX: E11.65 Insulin: No Use as instructed - Blood-Glucose Meter monitoring kit Insurance covered or per patient choice. Test blood sugar twice daily plus as needed for symptoms of blood sugars being too high or low. Dx: Type 2 DM - Uncontrolled E11.65 Insulin:No - blood sugar diagnostic (BLOOD GLUCOSE TEST) test strip Test blood sugar(s) 2 times daily. Dx: Type 2 DM - Uncontrolled E11.65 Insulin: No - Lancets lancets Test blood sugar(s) 2 times daily. Dx: Type 2 DM - Uncontrolled E11.65 Insulin: No - clotrimazole-betamethason e (LOTRISONE) cream Apply 1 application to affected area once daily. TO AFFECTED AREA. - fluticasone-vilanterol (BREO ELLIPTA) 100-25 mcg/dose inhaler Inhale 1 Inhalation as instructed once daily. - albuterol (PROVENTIL) 2.5 mg /3 mL (0.083 %) nebulizer solution Use 3 mL via nebulizer every 4 hours as needed for Wheezing/Shortness of Breath. - ipratropium (ATROVENT) 0.02 % nebulizer solution Use 2.5 mL via nebulizer four times daily. Unit dose pack of 50 - triamcinolone acetonide (KENALOG) 0.1 % cream Apply 1 application to affected area three times daily as needed. Apply sparingly to area for rash/itching. - nystatin (MYCOSTATIN) cream Apply 1 application to affected area twice daily. Apply for another week after rash resolves. Treat again as needed as directed - urea (CARMOL) 40 % lotn Apply 1 application to affected area twice daily. - Nebulizer NEBULIZER FOR HOME USE. DX: J45.42 - BIPAP Initiate BiPAP @ 20/14 cm of water with heated humidification. Ti Max 1.0, Ti Min 0.3, trigger medium, cycle high. Mask (medium AirFit F10 full face mask or per patient preference) optional chin strap (if indicated) , filters, tubing, humidifier and lifetime supplies. I have interviewed and examined the patient. I have reviewed the medical record and/or the pre-anesthesia evaluation, pertinent labs, and test results. This contains updated information obtained within 48 hours of Surgery/Procedure. SIGNATURE: Apollo Reeder MD PATIENT NAME: Garland De Santiago DATE: April 29, 2020 TIME: 2:16 PM CSN: [id number] Normal [facility] Basic Metabolic Panlon 04-29 Anion gap [Moles/Vol] 12 mmol/L Normal 9-18 [facility] Comment on above: Performed By: #### C , BMP #### [place] [phone] Calcium [Mass/Vol] 9.6 mg/dL Normal 8.5-10.5 [facility] Comment on above: Performed By: #### C , BMP #### [place] [phone] Chloride [Moles/Vol] 103 mmol/L Normal 98-110 [facility] Comment on above: Performed By: #### C BC, BMP #### [place] [phone] CO2 [Moles/Vol] 25 mmol/L Normal 23-32 [facility] Comment on above: Performed By: #### C BC, BMP #### [place] [phone] Creatinine [Mass/Vol] 0.54 mg/dL Low 0.70-1.40 [facility] Comment on above: Performed By: #### C BC, BMP #### [place] [phone] eGFR- Amer. >60 Normal >60 [facility] Comment on above: Performed By: #### C BC, BMP #### [place] [phone] GFR/1.73 sq M predicted among non-blacks MDRD (S/P/Bld) [Vol rate/Area] mL/min/{1.73_m2} Normal >60 [facility] Comment on above: Performed By: #### C BC, BMP #### [phone] Glucose [Mass/Vol] 157 mg/dL High 65-100 [facility] Comment on above: Performed By: #### C BC, BMP #### [place] [phone] Potassium [Moles/Vol] 4.3 mmol/L Normal 3.5-5.0 [facility] Comment on above: Performed By: #### C BC, BMP #### [place] [phone] Sodium [Moles/Vol] 140 mmol/L Normal 132-148 [facility] Comment on above: Performed By: #### C BC, BMP #### [place] [phone] Urea nitrogen [Mass/Vol] 16 mg/dL Normal 8-25 [facility] Comment on above: Performed By: #### C BC, BMP #### [place] [phone] CASE MANAGEMon 04-29-2020 CASE MANAGEM HNO ID: [id number] Author: Arthur Thomas (Rn) HOWARD Decker Service: ? Author Type: Registered Nurse Type: Care Mgt Progress Note Filed: 04/29/2020 4:19 PM Note Text: CARE MANAGEMENT PROGRESS NOTE SERVICE DATE: 04/29/2020 SERVICE TIME: 11:05 AM LOS: 2 days Pt for surgery later today. PT and OT to see. I anticipate pt will need HC therapies. Pt offers choice of [facility] or [facility] from list provided. Referral placed. Will need HC order. Pt plans on staying at [address] [place] [address] and offers a contact # of [phone]. 1600--pt accepted by [facility] for home therapies. SIGNATURE: Arthur Decker RN PATIENT NAME: Garland De Santiago DATE: April 29, 2020 TIME: 11:05 AM PAGER/CONTACT #: [phone] Normal [facility] CBCon 04-29-2020 Absolute nRBC <0.01 Normal <0.01 [facility] Comment on above: Performed By: #### C , BMP #### [place] [phone] Erythrocyte distribution width (RBC) [Ratio] 13.2 % Normal 11.5-15.0 [facility] Comment on above: Performed By: #### C , BMP #### [place] [phone] Hematocrit (Bld) [Volume fraction] 43.2 % Normal 36.0-46.0 [facility] Comment on above: Performed By: #### C , BMP #### [place] [phone] Hemoglobin (Bld) [Mass/Vol] 14.5 g/dL Normal 11.5-15.5 [facility] Comment on above: Performed By: #### C BC, BMP #### [place] [address] MCH (RBC) [Entitic mass] 27.9 pG Normal 26.0-34.0 [facility] Comment on above: Performed By: #### C BC, BMP #### [place] [address] MCHC (RBC) [Mass/Vol] 33.6 g/dL Normal 30.5-36.0 [facility] Comment on above: Performed By: #### C BC, BMP #### [place] [phone] MCV (RBC) [Entitic vol] 83.2 fL Normal 80.0-100.0 [facility] Comment on above: Performed By: #### C HIREN, BMP #### [place] [phone] Platelet mean volume (Bld) [Entitic vol] 9.6 fL Normal 9.0-12.7 [facility] Comment on above: Performed By: #### C HIREN, BMP #### [place] [phone] Platelets (Bld) [#/Vol] 338 10*3/uL Normal 150-400 [facility] Comment on above: Performed By: #### C HIREN, BMP #### [place] [phone] RBC (Bld) [#/Vol] 5.19 10*6/uL Normal 3.90-5.20 [facility] Comment on above: Performed By: #### C HIREN, BMP #### [phone] WBC (Bld) [#/Vol] 10.06 10*3/uL Normal 3.70-11.00 [facility] Comment on above: Performed By: #### Margaret MARADIAGA, BMP #### [place] [phone] CONSULT PROGon 04-29-2020 CONSULT PROG HNO ID: [id number] Author: Gerri Small Service: Neurosurgery Author Type: Physician Type: Consult Progress Note Filed: 04/29/2020 2:21 PM Note Text: PROGRESS NOTE NEUROSURGERY SERVICE DATE: 04/29/2020 SERVICE TIME: 10:45 AM Subjective INTERVAL HPI Ms. De Santiago is sitting comfortably in a chair. She has some questions about surgery. She reports her symptoms remain unchanged but pain is controlled. Current Facility-Administered Medications Medication Dose Route Frequency - sodium chloride 0.9 % (flush) 3-5 mL (BD POSIFLUSH) 3-5 mL INTRAVENOUS q 12 H - nicotine 21 mg/24 hr 1 Patch (NICODERM) 1 Patch TRANSDERMAL DAILY And - nicotine -- REMOVE patch OTHER DAILY And - nicotine - verify patch OTHER q 8 H - busPIRone 7.5 mg tab(s) (BUSPAR) 7.5 mg ORAL BID - loratadine 10 mg tab(s) (CLARITIN) 10 mg ORAL DAILY - gabapentin 600 mg cap(s) (NEURONTIN) 600 mg ORAL DAILY - atenolol 50 mg tab(s) (TENORMIN) 50 mg ORAL DAILY - gemfibrozil 600 mg tab(s) (LOPID) 600 mg ORAL BID - pantoprazole DR 20 mg tab(s) (PROTONIX) 20 mg ORAL BID AC (0600/1600) - sertraline 200 mg tab(s) (ZOLOFT) 200 mg ORAL DAILY - traZODone 100 mg tab(s) (DESYREL) 100 mg ORAL AT BEDTIME - gabapentin 900 mg cap(s) (NEURONTIN) 900 mg ORAL DAILY AT 9 PM - hydrALAZINE 10 mg injection (APRESOLINE) 10 mg INTRAVENOUS q 6 H PRN - dextrose 40 % 15 g 15 g ORAL PRN Or - glucagon 1 mg injection 1 mg INTRAMUSCULAR PRN Or - dextrose 50% in water 25 mL syringe 12.5 g INTRAVENOUS PRN - ipratropium-albuterol 3 mL nebulizer solution (DUONEB) 3 mL INHALATION q 4 H while awake - dexamethasone sodium phosphate 4 mg injection (DECADRON) 4 mg INTRAVENOUS q 8 H - ALPRAZolam 0.5 mg tab(s) (XANAX) 0.5 mg ORAL HS PRN - acetaminophen 325-650 mg tab(s) (TYLENOL) 325-650 mg ORAL q 4 H PRN - fluticasone-vilanterol 100-25 mcg/dose 1 Inhalation (BREO ELLIPTA) 1 Inhalation INHALATION DAILY - furosemide 20 mg tab(s) (LASIX) 20 mg ORAL DAILY - insulin lispro injection (rapid acting) (HumaLOG) SUBCUTANEOUS q 6 H Objective Alert, Oriented to Person, Place, Time EOMI PERRL Face Symmetric Tongue Midline VIOLET No Drift VITAL SIGNS 24 HOUR REVIEW: Patient Vitals for the past 24 hrs: BP Temp Temp src Pulse Resp SpO2 Weight 04/29/20 0812 167/96 ? ? 64 ? 97 % ? 04/29/20 0600 ? 89.4 kg (197 lb 1.6 oz) 04/29/20 0354 160/86 36.7 ?C (98 ?F) Oral 69 16 94 % ? 04/28/20 2200 147/81 ? ? 74 16 ? ? 04/28/20 2106 173/88 36.7 ?C (98 ?F) Oral 71 16 97 % ? 04/28/20 1130 135/84 36.8 ?C (98.3 ?F) Oral 68 16 95 % ? LABS: CBC, Coags, BMP, Mg, Phos Recent Labs 04/29/20 0739 04/28/20 1203 04/27/20 0501 WBC 10.06 12.23* 8.44 HB 14.5 14.2 13.6 HCT 43.2 42.1 40.4 PLT 338 347 307 INR -- -- 1.0 APTT -- -- 24.8 NA 140 139 138 K 4.3 4.6 3.6 CHLOR 103 102 104 CO2 25 23 26 BUN 16 15 19 CREAT 0.54* 0.43* 0.57* GLUC 157* 212* 117* CA 9.6 9.7 8.9 MG -- -- 2.0 DATA: Diagnostic tests reviewed for today's visit: Most recent labs and imaging results. Assessment/Plan Active Problems: I answered Ms. De Santiago's questions and reviewed imaging studies with her. She is ready to go for surgery this afternoon. Continue NPO Resolved Problems: * No resolved hospital problems. * Medication and Non-Pharmacologic VTE Prophylaxis/Anticoagulant s 04/27/20 0345 pneumatic compression stockings (dc,ga) 04/27/20 0345 graduated compression stockings (dc,ga) 04/27/20 0345 activity - mobilize patient (dc,ga) VTE Prophylaxis: VTE prophylaxis appropriate SIGNATURE: Deirdre Naidu PA-C PATIENT NAME: Garland De Santiago DATE: April 29, 2020 TIME: 10:45 AM PAGER/CONTACT #: [phone] Staff addendum ? Mrs. De Santiago is a?pleasant 59-year-old female admitted with a history of bilateral lower extremity pain, worse on right side associated with the numbness. ?Noticed perianal and groin numbness for the past 2 days. Has hesitancy of urination. ?No bladder or bowel incontinence. ? Currently on gabapentin 600 and leg twice a day. ?No previous spine surgery. ?Known diabetic. ?Last A1c done on 07/02/19?is?7.8 ? Neurological examination showed stable gait, no motor weakness. ? MRI lumbar spine showed mild lumbar canal stenosis at L3 4 level. ?Moderate to severe lumbar canal stenosis at L4 5 level. ? I again discussed about the surgical procedure, its advantages and risks All her questions were answered. Consent for surgery obtained. Lab results reviewed. Operative site marked. Proceeding with L4 laminectomy with decompression of L4 5 canal stenosis with bilateral root foraminotomy Gerri Small MD Staff, Neurosurgery [facility] NURSING PROGon 04-29-2020 NURSING PROG HNO ID: [id number] Author: Martha Smith) HOWARD Allen Service: ? Author Type: Registered Nurse Type: Nursing Progress Note Filed: 04/29/2020 6:45 PM Note Text: Nursing Progress Note Patient Name: Garland De Santiago Patient Location: / Daily Note:Returned from O.R.IV infusing as ordered.Back dressing intact-a scant amt. of reddish drainage shadowing.Ambulated with 2 assistance to bathroom and voided 350cc of a dark pablo urine.Calling for dinner at this time.Will reassess. This note was completed by: Martha Allen RN [facility] NURSING PROG HNO ID: [id number] Author: Martha Smith) HOWARD Allen Service: ? Author Type: Registered Nurse Type: Nursing Progress Note Filed: 04/29/2020 1:23 PM Note Text: Nursing Progress Note Patient Name: Garland De Santiago Patient Location: Daily Note:Heplock intact and flushes well.Remains NPO.To O.R. via bed. This note was completed by: Martha Allen RN [facility] NURSING PROG HNO ID: [id number] Author: Martha (Rn) HOWARD Allen Service: ? Author Type: Registered Nurse Type: Nursing Progress Note Filed: 04/29/2020 10:02 AM Note Text: Nursing Progress Note Patient Name: Garland De Santiago Patient Location: PK Daily Note:Heplock intact.Remains NPO except small sip of water with medications.C/o numbness/tingling in both feet.Circulation adequate to the lower extremities,toes warm and mobile.Pulses are palpable.Alert and oriented.Ambulated to bathroom without any difficulties.Neurontin/ty lenol were given.Surgery scheduled for early afternoon. This note was completed by: Martha Allen RN [facility] OPERATIVE NOon 04-29-2020 OPERATIVE NO HNO ID: [id number] Author: Gerri Small Service: Neurosurgery Author Type: Physician Type: Operative Report Filed: 04/29/2020 5:12 PM Note Text: OPERATIVE/PROCEDURE REPORT LOG ID: [id number] SURGERY/PROCEDURE DATE: 04/29/2020 INCISION/PROCEDURE START TIME: 3:22 PM INCISION CLOSE/PROCEDURE END TIME: 5:06 PM SURGEON(S)/PROCEDURALIST( S) AND PROGRAM DIR(S): Surgeon(s) and Role: * Gerri Small - Primary Physician Sales Agent Financial Report Service: Deirdre Preciado (Pa) ANESTHESIA: General PRE-OP/PRE-PROCEDURE DIAGNOSIS: L4-5 lumbar spinal stenosis with neurogenic claudication ? POST-OP/POST-PROCEDURE DIAGNOSIS: L4-5 lumbar spinal stenosis with neurogenic claudication SURGERY/PROCEDURE(S): L4 laminectomy, decompression of L4-5 canal stenosis with bilateral L4, L4 root foraminotomies Operative microscope used for decompression and foraminotomies ?? FINDINGS: L4-5 severe facet hypertrophy L4-5 severe canal stenosis with foraminal stenosis due to thick ligamentum flavum SURGERY/PROCEDURE DETAILS: After identifying the correct patient,?she was taken to the operating room. While?she was on the transport gurney,?she underwent smooth and adequate general anesthesia. All pressure points were padded adequately.?She was placed prone over the vanesa table. Preoperative x ray was done and incision was marked over L4-5?level. ?Back was prepped and draped in usual sterile manner. Pre operative?time out was done. 1% lidocaine with 1:200,000 ephinephrine was used for local anesthesia. Incision was made and carried down to the subcutaneous tissue level. Facia opened on the midline. L4-5?spinous process,? partial L4, L5?lamina was exposed?bilaterally?by elevating the muscles. ?Self retaining retractor was placed. Intra?operative x ray was done to confirm the L4-5?disk space level. Level was marked with permanent marker.?on call radiologist??reviewed the image remotely and confirmed the level. ? Inferior half of L4??laminotomy was done bilaterally with drill. Inter spinous ligament and spinous process was well preserved. Severe facet hypertrophy was noticed at L4-5 level. Ligamentum flavum was very thick which was removed using Kerrison rongeur. Microscope was brought into the field at this time and further procedure was done with microscope.?Severe canal stenosis was noticed at L4-5 levels due to facet hypertrophy and ligament thickening. Decompression of L4-5 canal stenosis was done. Severe foraminal stenosis was noticed at L4-5 levels. Root foraminotomies were done for L4, L5 roots bilaterally.?After completing?decompression and foraminotomies, root and dura was free of compression. No CSF leak was noticed?with valsalva.?Microscope was brought out from the field. ? Wound was irrigated with copious mount of irrigation. Hemostasis was achieved with bipolar cautery. Wound was closed in layers, #1?vicryl for fascia,?2- vicryl for subcutaneous tissue and?3-0 chromic for skin in a subcuticular fashion. Tincture benzoin and steri strip dressing was done. Patient was turned over the bed, awakened, extubated in the operating room.?She was escorted to the recovery room in a stable condition ESTIMATED BLOOD LOSS: 15 mls SPECIMENS: None IMPLANTABLE DEVICES: None DRAINS: None COMPLICATIONS: None PARTICIPATION IN SURGERY/PROCEDURE: I, primary surgeon/proceduralist performed the procedure with assistance. No qualified resident/fellow was available. SIGNATURE: Gerri Small MD PATIENT NAME: Garland De Santiago DATE: April 29, 2020 TIME: 5:09 PM PAGER/CONTACT #: [phone] [facility] PROGRESSon 04-29-2020 PROGRESS HNO ID: [id number] Author: Sari Knutson Service: Hospital Medicine Author Type: Physician Type: Progress Notes Filed: 04/29/2020 4:00 PM Note Text: INPATIENT PROGRESS NOTE SERVICE DATE: 04/29/2020 SERVICE TIME: 8:32 AM PRIMARY SERVICE: Hospital Medicine Subjective CHIEF COMPLAINT: Bilateral leg pain of 4 days duration associated with perianal numbness ? 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 The pain started on Saturday,bilateral but more on the right side ,from the buttocks all the way down to feet, increased by walking and relived by laying down. 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 The numbness started 3 days ago and associated with decreases sensation, more on the right. The patient has weakness in squeezing her pelvic muscle. The patient also complains of headache that started 2 days ago, continuous, not aggravated by anything but improves with Ibuprofen. Current Facility-Administered Medications Medication Dose Route Frequency - sodium chloride 0.9 % (flush) 3-5 mL (BD POSIFLUSH) 3-5 mL INTRAVENOUS q 12 H - nicotine 21 mg/24 hr 1 Patch (NICODERM) 1 Patch TRANSDERMAL DAILY And - nicotine -- REMOVE patch OTHER DAILY And - nicotine - verify patch OTHER q 8 H - busPIRone 7.5 mg tab(s) (BUSPAR) 7.5 mg ORAL BID - loratadine 10 mg tab(s) (CLARITIN) 10 mg ORAL DAILY - gabapentin 600 mg cap(s) (NEURONTIN) 600 mg ORAL DAILY - atenolol 50 mg tab(s) (TENORMIN) 50 mg ORAL DAILY - gemfibrozil 600 mg tab(s) (LOPID) 600 mg ORAL BID - pantoprazole DR 20 mg tab(s) (PROTONIX) 20 mg ORAL BID AC (0600/1600) - sertraline 200 mg tab(s) (ZOLOFT) 200 mg ORAL DAILY - traZODone 100 mg tab(s) (DESYREL) 100 mg ORAL AT BEDTIME - gabapentin 900 mg cap(s) (NEURONTIN) 900 mg ORAL DAILY AT 9 PM - hydrALAZINE 10 mg injection (APRESOLINE) 10 mg INTRAVENOUS q 6 H PRN - dextrose 40 % 15 g 15 g ORAL PRN Or - glucagon 1 mg injection 1 mg INTRAMUSCULAR PRN Or - dextrose 50% in water 25 mL syringe 12.5 g INTRAVENOUS PRN - ipratropium-albuterol 3 mL nebulizer solution (DUONEB) 3 mL INHALATION q 4 H while awake - dexamethasone sodium phosphate 4 mg injection (DECADRON) 4 mg INTRAVENOUS q 8 H - ALPRAZolam 0.5 mg tab(s) (XANAX) 0.5 mg ORAL HS PRN - acetaminophen 325-650 mg tab(s) (TYLENOL) 325-650 mg ORAL q 4 H PRN - fluticasone-vilanterol 100-25 mcg/dose 1 Inhalation (BREO ELLIPTA) 1 Inhalation INHALATION DAILY - furosemide 20 mg tab(s) (LASIX) 20 mg ORAL DAILY - insulin lispro injection (rapid acting) (HumaLOG) SUBCUTANEOUS q 6 H Objective PHYSICAL EXAM: BP 167/96 Pulse 64 Temp (Src) 98 (Oral) Resp 16 Ht 5' 6 (1.68m) Wt 197 lb 1.6 oz (89.4kg) SpO2 97% BMI 31.83 kg/(m2). O2 Therapy: Room Air Physical Exam Performed GENERAL: Alert, no distress, cooperative SKIN: Skin color, texture, turgor normal. No rashes or lesions. NECK: No jugulovenous distention, Supple LUNGS: Lungs clear to auscultation, Good diaphragmatic excursion CARDIAC: Normal S1 and S2; no rubs, murmurs, or gallops ABDOMEN: Abdomen soft, non-tender, BS normal, No masses or organomegaly EXTREMITIES: Extremities normal, no deformities, edema, clubbing or skin discoloration. Good capillary refill., No ulcers. Dry skin. NEURO: Grossly normal cognition, motor function, and cranial nerves III-XII, Positive findings: sensory deficit reports generalized reduced sensation in LE bilaterally PULSES: 2+ radial DATA: Diagnostic tests reviewed for today's visit: Most recent labs and imaging results. Assessment/Plan This is a 59 year old female who has PMH of HTN, HLD, YARY, T2DM, allergic rhinitis and peripheral neuropathy presented with bilateral lower limb pain of 4 days duration and symptoms concerning for cauda equina. [facility] Seen by Neurosurgery, they discussed questions she had before the surgery and is on the list for a Laminectomy this afternoon. ? L2-L3 nerve root compression History of bilateral leg pain(more in the rt), back pain, numbness, decreased sensations and perianal numbness. Subjective weakness in the rt upper thigh and weakness in squeezing pelvic muscle Weak stream but in urinary or fecal incontinence. P/E: power is 5/5 in both limbs. Decreased sensation on the lateral right lower limb. Reflexes +2. Positive straight leg raising Labs Hb 13.8 Wbc 10 Plt:352 Cr 0.66 Na 138 k 3.5 INR PTT 30 Urine analysis shows no abnormalities MRI spine showed : 1-multilevel degenerative changes 2- moderate central canal stenosis at L4-L5 3-right lateral recess stenosis with nerve root compression at L2-L3 Neurosurgery advised for L4 laminectomy with decompression of L4 5 canal stenosis with bilateral root foraminotomy Medical assessment for fitness for surgery: low risk for perioperative cardiac complications per RSRI score Been NPO from midnight Held off Morning dose of Metformin and Lisinopril Plan: await NSGY Re-prescribe Lisinopril and Metformin post Op incentive spirometry May need HC therapies on discharge Peripheral Neuropathy chronic on gabapentin 600 on the morning and 900 at the evening . c/W home med ? Anxiety and depression On sertraline, trazodone and buspirone c/w home med [facility] for PRN Xanax at night Plan: Xanax PRN pre-Op ? hyperlipidemia On Lopid 600 BID c/w home med ? Hypertenstion On Lisinopril 20 mg daily and atenolol 50 dailly -Hold lisinopril for possible surgery -Hydralazine PRN Echo 05/2014: The left ventricle is normal in size. There is moderate left ventricular hypertrophy. Left ventricular systolic function is normal. EF = 65 ? 5% (visual est.) Baseline left ventricular diastolic function is normal. The right ventricle is normal in size. Right ventricular systolic function is normal. Mildly thickened mitral leaflets with trivial MR. Trivial TR. RVSP 40mmHg. Mild pulmonary hypertension. No valvular stenosis. Plan: Hold off Morning dose of Metformin and Lisinopril Pre-Op ? T2DM Hba1c 7.8 on Metformin 500 BID and Gemfibrozil 600mg BID Plan: Restart home meds for now Monitor blood glucose as holding Metformin this morning ? Asthma On albuterol and ipratropium PRN started on Douneb PRN PFT 02/2019: Spirometry indicates mild obstruction. The flow volume demonstrates an obstructive pattern. There is no significant bronchodilator response. The TLC, RV and RV/TLC are normal. The diffusing capacity is mildly reduced. The presence of a reduced DLCO that normalizes when corrected for volume is consistent with a non-parenchymal disorder but does not rule out parenchymal or pulmonary vascular disease. The diffusing capacity corrected for volume is normal. Plan: Incentive spirometry Medication and Non-Pharmacologic VTE Prophylaxis/Anticoagulant s 04/27/20 0345 pneumatic compression stockings ([place], [place]) 04/27/20 0345 graduated compression stockings [place]) 04/27/20 0345 activity - mobilize patient ([place]) VTE Prophylaxis: VTE prophylaxis appropriate SIGNATURE: Janelle Kaufman MD PATIENT NAME: Garland De Santiago DATE: April 29, 2020 TIME: 9:19 AM PAGER: [phone] I have seen and evaluated the patient and discussed the case with the resident physician. I have verified and updated the resident?s note to include the final assessment and plan. Sari Knutson MD [facility] PT EDon 04-29-2020 PT ED HNO ID: [id number] Author: Derick (Rn) HOWARD Britt Service: Podiatry Author Type: Registered Nurse Type: Patient Education Filed: 04/29/2020 1:50 PM Note Text: PATIENT EDUCATION TOPIC: PROCEDURE / SURGERY: Pre-op Teaching: Surgical Safety Principles PATIENT NAME: Garland De Santiago PATIENT LOCATION: [facility] OR POOL/[facility] OR POOL READINESS TO LEARN COGNITIVE ABILITY: Alert and oriented MOTIVATION TO LEARN: Eager FAMILY SUPPORT: None - Unavailable/disinterested INSTRUCTION PROVIDED TO: Patient PATIENT LEARNS BEST BY: Individual Instruction FACTORS AFFECTING LEARNING: None PHYSICAL LIMITATIONS AFFECTING LEARNING: None LEARNING RESPONSE DIAGNOSIS: ADULT: Well Adult PATIENT/FAMILY RESPONSE: Information received as demonstrated by interest and questions METHOD OF INSTRUCTION: Individual instruction FOLLOW-UP PLAN: Complete - No need for follow-up INSTRUCTIONAL AIDS USED: NA SUPPLEMENTAL MATERIAL PROVIDED TO PATIENT: None REFERRAL (RECOMMENDATION): None Electronically Signed By: Derick Britt RN [facility] THERAPY NTon 04-29-2020 THERAPY NT HNO ID: [id number] Author: Shazia PhanPt) Jus Service: Physical Therapy Author Type: Physical Therapist Type: Therapy (PT/OT/Speech/Resp) Filed: 04/29/2020 8:09 AM Note Text: PHYSICAL THERAPY MISSED VISIT SERVICE DATE: 04/29/2020 SERVICE TIME: 805 to 805 ROOM: [place] [address] Attempted Evaluation. Patient not seen due to (surgery today) SIGNATURE: Shazia Luu PT PATIENT NAME: Garland De Santiago DATE: April 29, 2020 TIME: 8:07 AM [facility] XR LUMBAR 1Von 04-29-2020 XR LUMBAR 1V * * *Final Report* * * DATE OF EXAM: Apr 29 2020 3:13PM FVO [id number] - XR LUMBAR 1V / PROCEDURE REASON: back pain, intra op l4 laminectomy * * * * Physician Interpretation * * * * TECHNIQUE: Lateral lumbosacral spine in the OR HISTORY: Intra-Op, laminectomy COMPARISON STUDY: Lateral lumbosacral spine of 11/16/2010. RESULT: There is a radiopaque probe with the tip posterior to the L4 spinous process inferiorly and pointing towards the L4/L5 disc space. This examination was obtained for surgical planning. IMPRESSION: 1. Surgical planning. 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: OLIVE Transcribe Date/Time: Apr 29 2020 3:14P Dictated by : BERTHA JENKINS MD This examination was interpreted and the report reviewed and electronically signed by: BERTHA JENKINS MD on Apr 29 2020 3:16PM EST [id number] Normal [facility] XR VERIFY LEVEL [id number] 04-29-2020 XR VERIFY LEVEL L-SPINE-NB * * *Final Report* * * DATE OF EXAM: Apr 29 2020 3:32PM FVO [id number] - XR VERIFY LEVEL L-SPINE-NB / PROCEDURE REASON: back pain, intra op l4 laminectomy localization * * * * Physician Interpretation * * * * TECHNIQUE: Single lateral image of the lumbar spine COUNTING REFERENCE: Lumbosacral junction. There are 5 lumbar type vertebral bodies. COMPARISON: 04/29/2020 at 1507 hours RESULT: A single lateral image is obtained intraoperatively for surgical planning. A localizing surgical instrument is noted, with the tip posterior to the L4/L5 disc space. Image annotated with vertebral body levels and confirmed with the responsible surgeon at the time of interpretation. IMPRESSION: OPERATIVE ASSESSMENT COMMUNICATION: Localization level(s) confirmed with: Dr. Judith Albrecht on 04/29/2020 at 1536 hours, via phone and Skype during the surgical procedure. 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: OLIVE Transcribe Date/Time: Apr 29 2020 3:36P Dictated by : BERTHA JENKINS MD This examination was interpreted and the report reviewed and electronically signed by: BERTHA JENKINS MD on Apr 29 2020 3:37PM EST [id number] [facility] Basic Metabolic Panlon 04-28 Anion gap [Moles/Vol] 14 mmol/L Normal 9-18 [facility] Comment on above: Performed By: #### C BC, BMP, B12, SERFOL ####[facility] [place], [place] [phone] Calcium [Mass/Vol] 9.7 mg/dL Normal 8.5-10.5 [facility] Comment on above: Performed By: #### C BC, BMP, B12, SERFOL ####[place] [phone] Chloride [Moles/Vol] 102 mmol/L Normal 98-110 [facility] Comment on above: Performed By: #### C BC, BMP, B12, SERFOL ####[place] [phone] CO2 [Moles/Vol] 23 mmol/L Normal 23-32 [facility] Comment on above: Performed By: #### C BC, BMP, B12, SERFOL ####[place] [phone] Creatinine [Mass/Vol] 0.43 mg/dL Low 0.70-1.40 [facility] Comment on above: Performed By: #### C BC, BMP, B12, SERFOL ####[place] [phone] eGFR- Amer. >60 Normal >60 [facility] Comment on above: Performed By: #### C BC, BMP, B12, SERFOL ####[place] [phone] GFR/1.73 sq M predicted among non-blacks MDRD (S/P/Bld) [Vol rate/Area] mL/min/{1.73_m2} Normal >60 [facility] Comment on above: Performed By: #### C BC, BMP, B12, SERFOL ####[place] [phone] Glucose [Mass/Vol] 212 mg/dL High 65-100 [facility] Comment on above: Performed By: #### C BC, BMP, B12, SERFOL ####[place] [phone] Potassium [Moles/Vol] 4.6 mmol/L Normal 3.5-5.0 [facility] Comment on above: Result Comment: Revi ewed Performed By: #### C BC, BMP, B12, SERFOL ####[place] [phone] Sodium [Moles/Vol] 139 mmol/L Normal 132-148 [facility] Comment on above: Performed By: #### C BC, BMP, B12, SERFOL ####[place] [phone] Urea nitrogen [Mass/Vol] 15 mg/dL Normal 8-25 [facility] Comment on above: Performed By: #### C BC, BMP, B12, SERFOL ####[place] [phone] CBCon 04-28-2020 Absolute nRBC <0.01 Normal <0.01 [facility] Comment on above: Performed By: #### C BC, BMP, B12, SERFOL ####[address] Erythrocyte distribution width (RBC) [Ratio] 13.2 % Normal 11.5-15.0 [facility] Comment on above: Performed By: #### C BC, BMP, B12, SERFOL ####[address] Hematocrit (Bld) [Volume fraction] 42.1 % Normal 36.0-46.0 [facility] Comment on above: Performed By: #### C BC, BMP, B12, SERFOL ####[place] [phone] Hemoglobin (Bld) [Mass/Vol] 14.2 g/dL Normal 11.5-15.5 [facility] Comment on above: Performed By: #### C BC, BMP, B12, SERFOL ####[place] [phone] MCH (RBC) [Entitic mass] 28.1 pG Normal 26.0-34.0 [facility] Comment on above: Performed By: #### C BC, BMP, B12, SERFOL ####[address] [phone] MCHC (RBC) [Mass/Vol] 33.7 g/dL Normal 30.5-36.0 [facility] Comment on above: Performed By: #### C BC, BMP, B12, SERFOL ####[address] [phone] MCV (RBC) [Entitic vol] 83.4 fL Normal 80.0-100.0 [facility] Comment on above: Performed By: #### C BC, BMP, B12, SERFOL ####[address] [phone] Platelet mean volume (Bld) [Entitic vol] 9.8 fL Normal 9.0-12.7 [facility] Comment on above: Performed By: #### C BC, BMP, B12, SERFOL ####[address] [phone] Platelets (Bld) [#/Vol] 347 10*3/uL Normal 150-400 [facility] Comment on above: Performed By: #### C BC, BMP, B12, SERFOL ####[address] [phone] RBC (Bld) [#/Vol] 5.05 10*6/uL Normal 3.90-5.20 [facility] Comment on above: Performed By: #### C BC, BMP, B12, SERFOL ####[address] [phone] WBC (Bld) [#/Vol] 12.23 10*3/uL High 3.70-11.00 [facility] Comment on above: Performed By: #### C BC, BMP, B12, SERFOL ####[address] [phone] ECG COMPLETEon 04-28-2020 ECG COMPLETE NAME : ANYIJULIA STEWART PID : [id number] : 1960 Gender : Female Race : ORD : [id number] Procedure Date : Apr 28 2020 08:36:55 Edit Date : Apr 28 2020 12:39:29 Diagnosis:Sinus rhythm Probable left atrial enlargement Borderline ECG Confirmed by HUY THAO MD ([id number]) on 04/28/2020 12:39:26 PM Ventricular Rate : 72 BPM Atrial Rate : 73 BPM P-R Interval : 176 ms QRS Duration : 78 ms Q-T Interval : 411 ms QTC Calculation(Bazett) : 450 ms P [place] : 36 degrees R [place] : 6 degrees T [place] : 19 degrees Test Reason : Pre-OP [facility] : [id number] Overread By : HUY THAO MD Edited By : HUY THAO MD Referred By : COREY RUBI Acquired by : DERICK FLORES [facility] Folate, Serumon 04-28-2020 Folate [Mass/Vol] 7.7 ng/mL Normal >4.7 [facility] Comment on above: Performed By: #### C BC, BMP, B12, SERFOL ####[facility] [place], [place] [phone] NURSING PROGon 04-28-2020 NURSING PROG HNO ID: [id number] Author: Megha (Rn) HOWARD Gregorio Service: ? Author Type: Registered Nurse Type: Nursing Progress Note Filed: 04/29/2020 6:34 AM Note Text: Nursing Progress Note Patient Name: Garland De Santiago Patient Location: [facility] Daily Note:Pt is in the room resting.She is AANDOX3.Lungs are clear.Bowl sounds are normal.She is up independent in the room.Pt is a little anxious about the surgery tomorrow.I gave her xanax.Pt is stable will continue to monitor. When I open the med paper by mistake I broke tie pill in half and with out noticing I throw that away in the sharps container in the room.So I had to get in to the pyxie and waste the half of the pill and get an other pill and give it to the pt.Just half of it.The other half I wasted and throw it in the waste container in the med room. This note was completed by: Megha Gregorio RN [facility] NURSING PROG HNO ID: [id number] Author: Martha Allen RN Service: ? Author Type: Registered Nurse Type: Nursing Progress Note Filed: 04/28/2020 6:19 PM Note Text: Nursing Progress Note Patient Name: Garland De Santiago Patient Location: Daily Note:Heplock intact.Took diet well.No n/v.Voiding. Up and about.Showered.Denies pain. This note was completed by: Martha Allen RN [facility] NURSING PRO HNO ID: [id number] Author: Martha Allen RN Service: ? Author Type: Registered Nurse Type: Nursing Progress Note Filed: 04/28/2020 10:57 AM Note Text: Nursing Progress Note Patient Name: Garland De Santiago Patient Location: Daily Note:Heplock intact.Took diet well.No n/v. Voiding clear yellow urine.Ambulated in lopez,gait steady.Moving well.Continues to have numbness and tingling in the lower legs.Surgery is scheduled for tomorrow.Denies pain. This note was completed by: Martha Allen RN [facility] NURSING PROG HNO ID: [id number] Author: Megha (Rn) HOWARD Gregorio Service: ? Author Type: Registered Nurse Type: Nursing Progress Note Filed: 04/27/2020 11:36 PM Note Text: Nursing Progress Note Patient Name: Garland De Santiago Patient Location: [facility]/ Daily Note:Pt is in the room resting.AANDOX3.Lungs are clear.Bowl sounds are normal.Pt is up independent.She is voiding normal She has n/t on BLE.Pt has scheduled and PRN pain meds. Pt is anxious. She has xanax to help with it..She is stable at this time.Call light within reach.Will continue to monitor. This note was completed by: Megha Gregorio RN [facility] PROGRESSon 04-28-2020 PROGRESS HNO ID: [id number] Author: Gerri Small Service: Neurosurgery Author Type: Physician Type: Progress Notes Filed: 04/28/2020 3:55 PM Note Text: PROGRESS NOTE NEUROSURGERY SERVICE DATE: 04/28/2020 SERVICE TIME: 9:25 AM Subjective INTERVAL HPI Patient seen this morning. No loss of bowel or bladder function. Continues with leg pain and numbness in the groin. Current Facility-Administered Medications Medication Dose Route Frequency - sodium chloride 0.9 % (flush) 3-5 mL (BD POSIFLUSH) 3-5 mL INTRAVENOUS q 12 H - nicotine 21 mg/24 hr 1 Patch (NICODERM) 1 Patch TRANSDERMAL DAILY And - nicotine -- REMOVE patch OTHER DAILY And - nicotine - verify patch OTHER q 8 H - busPIRone 7.5 mg tab(s) (BUSPAR) 7.5 mg ORAL BID - loratadine 10 mg tab(s) (CLARITIN) 10 mg ORAL DAILY - gabapentin 600 mg cap(s) (NEURONTIN) 600 mg ORAL DAILY - atenolol 50 mg tab(s) (TENORMIN) 50 mg ORAL DAILY - gemfibrozil 600 mg tab(s) (LOPID) 600 mg ORAL BID - pantoprazole DR 20 mg tab(s) (PROTONIX) 20 mg ORAL BID AC (0600/1600) - sertraline 200 mg tab(s) (ZOLOFT) 200 mg ORAL DAILY - traZODone 100 mg tab(s) (DESYREL) 100 mg ORAL AT BEDTIME - gabapentin 900 mg cap(s) (NEURONTIN) 900 mg ORAL DAILY AT 9 PM - hydrALAZINE 10 mg injection (APRESOLINE) 10 mg INTRAVENOUS q 6 H PRN - dextrose 40 % 15 g 15 g ORAL PRN Or - glucagon 1 mg injection 1 mg INTRAMUSCULAR PRN Or - dextrose 50% in water 25 mL syringe 12.5 g INTRAVENOUS PRN - ipratropium-albuterol 3 mL nebulizer solution (DUONEB) 3 mL INHALATION q 4 H while awake - dexamethasone sodium phosphate 4 mg injection (DECADRON) 4 mg INTRAVENOUS q 8 H - ALPRAZolam 0.5 mg tab(s) (XANAX) 0.5 mg ORAL HS PRN - insulin lispro injection (rapid acting) (HumaLOG) SUBCUTANEOUS w MEALS AND HS - ketorolac 15 mg injection (TORADOL) 15 mg INTRAVENOUS q 6 H PRN - acetaminophen 325-650 mg tab(s) (TYLENOL) 325-650 mg ORAL q 4 H PRN - metFORMIN 500 mg tab(s) (GLUCOPHAGE) 500 mg ORAL BID - lisinopril 20 mg tab(s) (ZESTRIL, PRINIVIL) 20 mg ORAL DAILY - fluticasone-vilanterol 100-25 mcg/dose 1 Inhalation (BREO ELLIPTA) 1 Inhalation INHALATION DAILY - furosemide 20 mg tab(s) (LASIX) 20 mg ORAL DAILY Objective Alert, Oriented to Person, Place, Time EOMI PERRL Face Symmetric Tongue Midline VIOLET No Drift VITAL SIGNS 24 HOUR REVIEW: Patient Vitals for the past 24 hrs: BP Temp Temp src Pulse Resp SpO2 Weight 04/28/20 0543 ? 90.2 kg (198 lb 13.7 oz) 04/28/20 0331 137/82 36.6 ?C (97.9 ?F) Oral 77 16 95 % ? 08/19/20 2202 138/73 ? 04/27/202001 166/82 36.7 ?C (98.1 ?F) Oral 91 16 94 % ? 04/27/201936 ? ? ? 82 18 96 % ? 04/27/201928 ? ? ? 81 18 98 % ? 04/27/20 1030 120/92 36.9 ?C (98.4 ?F) Oral 72 18 98 % ? LABS: CBC, Coags, BMP, Mg, Phos Recent Labs 04/27/20 0501 WBC 8.44 HB 13.6 HCT 40.4 PLT 307 INR 1.0 APTT 24.8 NA 138 K 3.6 CHLOR 104 CO2 26 BUN 19 CREAT 0.57* GLUC 117* CA 8.9 MG 2.0 DATA: Diagnostic tests reviewed for today's visit: Most recent labs and imaging results. Assessment/Plan Active Problems: Essential hypertension POA: Yes Assessment AND Plan: per primary Obesity (BMI 30.0-34.9) POA: Yes Assessment AND Plan: Type 2 diabetes mellitus without complication, without long-term current use of insulin (HCC) POA: Yes Assessment AND Plan: per primary Cauda equina compression (HCC) POA: Yes Assessment AND Plan: Plan for OR tomorrow. NPO after midnight. All questions answered. PT/OT Lumbar spinal stenosis POA: Unknown Assessment AND Plan: as above Nicotine use disorder, F17.2 POA: Yes Assessment AND Plan: per primary Resolved Problems: * No resolved hospital problems. * Medication and Non-Pharmacologic VTE Prophylaxis/Anticoagulant s 04/27/20 0345 pneumatic compression stockings (dc,ga) 04/27/20 0345 graduated compression stockings (dc,oh) 04/27/20 0345 activity - mobilize patient (dc,ga) VTE Prophylaxis: VTE prophylaxis appropriate SIGNATURE: KEVIN Smith PATIENT NAME: Garland De Santiago DATE: April 28, 2020 TIME: 9:25 AM PAGER/CONTACT #: [phone] Staff addendum ? Mrs. De Santiago is a pleasant 59-year-old female admitted with a history of bilateral lower extremity pain, worse on right side associated with the numbness. Noticed perianal and groin numbness for the past 2 days. Has hesitancy of urination. No bladder or bowel incontinence. ? Currently on gabapentin 600 and leg twice a day. No previous spine surgery. Known diabetic. Last A1c done on 07/02/19 is 7.8 ? Neurological examination showed stable gait, no motor weakness. ? MRI lumbar spine showed mild to moderate lumbar canal stenosis at L3 4 level. Moderate to severe lumbar canal stenosis at L4 5 level. ? Discussed clinical, imaging finding. I showed her images and explained in detail. Discussed treatment option for lumbar canal stenosis with neurogenic claudication, groin numbness which includes continuing conservative treatment with the gabapentin, back exercises, pain medication, outpatient L4 5 transforaminal epidural injection and the surgical intervention. ? Considering groin numbness and walking difficulty - surgery is the better option. Discussed in detail about L4 laminectomy with decompression of L4 5 canal stenosis with bilateral root foraminotomy surgical procedure, its advantages and risks. All her questions were answered. ? Tentatively scheduled for surgery on 04/29/2020 at around 2 PM NPO since midnight ? Gerri Small MD Staff, Neurosurgery [facility] PROGRESS HNO ID: [id number] Author: Srai Knutson Service: Hospital Medicine Author Type: Physician Type: Progress Notes Filed: 04/28/2020 5:57 PM Note Text: INPATIENT PROGRESS NOTE SERVICE DATE: 04/28/2020 SERVICE TIME: 04/28/20 PRIMARY SERVICE: Hospital Medicine Subjective CHIEF COMPLAINT: Bilateral leg pain of 4 days duration associated with perianal numbness ? 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 The pain started on Saturday,bilateral but more on the right side ,from the buttocks all the way down to feet, increased by walking and relived by laying down. 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 The numbness started 3 days ago and associated with decreases sensation, more on the right. The patient she has weakness in squeezing her pelvic muscle. The patient also complains of headache that started 2 days ago, continuous, not aggravated by anything but improves with Ibuprofen. Current Facility-Administered Medications Medication Dose Route Frequency - sodium chloride 0.9 % (flush) 3-5 mL (BD POSIFLUSH) 3-5 mL INTRAVENOUS q 12 H - nicotine 21 mg/24 hr 1 Patch (NICODERM) 1 Patch TRANSDERMAL DAILY And - nicotine -- REMOVE patch OTHER DAILY And - nicotine - verify patch OTHER q 8 H - busPIRone 7.5 mg tab(s) (BUSPAR) 7.5 mg ORAL BID - loratadine 10 mg tab(s) (CLARITIN) 10 mg ORAL DAILY - gabapentin 600 mg cap(s) (NEURONTIN) 600 mg ORAL DAILY - atenolol 50 mg tab(s) (TENORMIN) 50 mg ORAL DAILY - gemfibrozil 600 mg tab(s) (LOPID) 600 mg ORAL BID - pantoprazole DR 20 mg tab(s) (PROTONIX) 20 mg ORAL BID AC (0600/1600) - sertraline 200 mg tab(s) (ZOLOFT) 200 mg ORAL DAILY - traZODone 100 mg tab(s) (DESYREL) 100 mg ORAL AT BEDTIME - gabapentin 900 mg cap(s) (NEURONTIN) 900 mg ORAL DAILY AT 9 PM - hydrALAZINE 10 mg injection (APRESOLINE) 10 mg INTRAVENOUS q 6 H PRN - dextrose 40 % 15 g 15 g ORAL PRN Or - glucagon 1 mg injection 1 mg INTRAMUSCULAR PRN Or - dextrose 50% in water 25 mL syringe 12.5 g INTRAVENOUS PRN - ipratropium-albuterol 3 mL nebulizer solution (DUONEB) 3 mL INHALATION q 4 H while awake - dexamethasone sodium phosphate 4 mg injection (DECADRON) 4 mg INTRAVENOUS q 8 H - ALPRAZolam 0.5 mg tab(s) (XANAX) 0.5 mg ORAL HS PRN - insulin lispro injection (rapid acting) (HumaLOG) SUBCUTANEOUS w MEALS AND HS - ketorolac 15 mg injection (TORADOL) 15 mg INTRAVENOUS q 6 H PRN - acetaminophen 325-650 mg tab(s) (TYLENOL) 325-650 mg ORAL q 4 H PRN Objective PHYSICAL EXAM: BP 137/82 Pulse 77 Temp (Src) 97.9 (Oral) Resp 16 Ht 5' 6 (1.68m) Wt 198 lb 13.7 oz (90.2kg) SpO2 95% BMI 32.11 kg/(m2). O2 Therapy: Room Air Physical Exam Performed GENERAL: Alert, no distress, cooperative SKIN: Skin color, texture, turgor normal. No rashes or lesions. NECK: No jugulovenous distention, Supple LUNGS: Lungs clear to auscultation, Good diaphragmatic excursion CARDIAC: Normal S1 and S2; no rubs, murmurs, or gallops ABDOMEN: Abdomen soft, non-tender, BS normal, No masses or organomegaly EXTREMITIES: Extremities normal, no deformities, edema, clubbing or skin discoloration. Good capillary refill., No ulcers. Dry skin. NEURO: Grossly normal cognition, motor function, and cranial nerves III-XII, Positive findings: sensory deficit reports generalized reduced sensation in LE bilaterally PULSES: 2+ radial DATA: Diagnostic tests reviewed for today's visit: Most recent labs and imaging results. Assessment/Plan This is a 59 year old female who has PMH of HTN, HLD, YARY, T2DM, allergic rhinitis and peripheral neuropathy presented with bilateral lower limb pain of 4 days duration and symptoms concerning for cauda equina. [facility] Seen by Neurosurgery and is on the list for a Laminectomy tomorrow. ? L2-L3 nerve root compression History of bilateral leg pain(more in the rt), back pain, numbness, decreased sensations and perianal numbness. Subjective weakness in the rt upper thigh and weakness in squeezing pelvic muscle Weak stream but in urinary or fecal incontinence. P/E: power is 5/5 in both limbs. Decreased sensation on the lateral right lower limb. Reflexes +2. Positive straight leg raising Labs Hb 13.8 Wbc 10 Plt:352 Cr 0.66 Na 138 k 3.5 INR PTT 30 Urine analysis shows no abnormalities MRI spine showed : 1-multilevel degenerative changes 2- moderate central canal stenosis at L4-L5 3-right lateral recess stenosis with nerve root compression at L2-L3 Neurosurgery advised for L4 laminectomy with decompression of L4 5 canal stenosis with bilateral root foraminotomy Medical assessment for fitness for surgery: low risk for perioperative cardiac complications per RSRI score Plan: Pain control with ketorolac 15 mg Q6h PRN Continue as per NSGY Plan for surgery saturday incentive spirometry NPO from midnight Hold off Morning dose of Metformin and Lisinopril Peripheral Neuropathy chronic on gabapentin 600 on the morning and 900 at the evening . c/W home med ? Anxiety and depression On sertraline, trazodone and buspirone c/w home med Last night complained of anxiety and asked for Xanax Plan: Xanax PRN pre-Op ? hyperlipidemia On Lopid 600 BID c/w home med ? Hypertenstion On Lisinopril 20 mg daily and atenolol 50 dailly -Hold lisinopril for possible surgery -Hydralazine PRN Echo 05/2014: The left ventricle is normal in size. There is moderate left ventricular hypertrophy. Left ventricular systolic function is normal. EF = 65 ? 5% (visual est.) Baseline left ventricular diastolic function is normal. The right ventricle is normal in size. Right ventricular systolic function is normal. Mildly thickened mitral leaflets with trivial MR. Trivial TR. RVSP 40mmHg. Mild pulmonary hypertension. No valvular stenosis. Plan: Hold off Morning dose of Metformin and Lisinopril Pre-Op ? T2DM Hba1c 7.8 on Metformin 500 BID and Gemfibrozil 600mg BID Plan: Restart home meds for now - monitor periop period as holding Metformin am ? Asthma On albuterol and ipratropium PRN started on Douneb PRN PFT 02/2019: Spirometry indicates mild obstruction. The flow volume demonstrates an obstructive pattern. There is no significant bronchodilator response. The TLC, RV and RV/TLC are normal. The diffusing capacity is mildly reduced. The presence of a reduced DLCO that normalizes when corrected for volume is consistent with a non-parenchymal disorder but does not rule out parenchymal or pulmonary vascular disease. The diffusing capacity corrected for volume is normal. Medication and Non-Pharmacologic VTE Prophylaxis/Anticoagulant s 04/27/20 0345 pneumatic compression stockings ([place], [place]) 04/27/20 0345 graduated compression stockings (dc,ga) 04/27/20 0345 activity - mobilize patient ([place], [place]) VTE Prophylaxis: VTE prophylaxis appropriate SIGNATURE: Janelle Kaufman MD PATIENT NAME: Garland De Santiago DATE: April 28, 2020 TIME: 9:19 AM PAGER: [phone] I have seen and evaluated the patient and discussed the case with the resident physician. I have verified and updated the resident?s note to include the final assessment and plan. Sari Knutson MD [facility] THERAPY NTon 04-28-2020 THERAPY NT HNO ID: [id number] Author: Maday PhanOt/Ulices Santos Service: Occupational Therapy Author Type: Occupational Therapist Type: Therapy (PT/OT/Speech/Resp) Filed: 04/28/2020 10:08 AM Note Text: OCCUPATIONAL THERAPY MISSED VISIT SERVICE DATE: 04/28/2020 SERVICE TIME: 1000 to 1000 ROOM: [place] [address] Attempted Evaluation. Patient not seen due to Surgery. Spoke with RN who reported pt has agreed to surgery which is scheduled for April 29. OT will hold evaluation at this time and follow up post op when activity orders are updated and pt is appropriate to participate. SIGNATURE: Maday Santos OT/Teri PATIENT NAME: Garland De Santiago DATE: April 28, 2020 TIME: 10:07 AM [facility] Vitamin B12on 04-28-2020 Cobalamin (Vitamin B12) [Mass/Vol] 419 pg/mL Normal 232-1245 [facility] Comment on above: Performed By: #### C BC, BMP, B12, SERFOL ####[facility] [place], [place] [phone] APTTon 04-27-2020 aPTT Coag (Bld) [Time] 24.8 s Normal 23.0-32.4 [facility] Comment on above: Result Comment: Unfr actionated Heparin Therapeutic Ranges: Standard Heparin Nomogram: 53 to 78 seconds (anti-Xa level of 0.3 to 0.7 U/ml) Low Dose/ACS Nomogram: 49 to 67 seconds (anti-Xa level of 0.2 to 0.5 U/ml) Stroke Treatment Nomogram: 49 to 67 seconds (anti-Xa level of 0.2 to 0.5 U/ml) Note: The APTT therapeutic range has been determined for the current lot of laboratory APTT reagent in use throughout the [facility]. Performed By: #### P TT, CMP, CBC, MG1, PT ####[facility] [place], [place] [phone] CASE MGT INIT ASSESon 2019 CASE MGT INIT ASSES HNO ID: [id number] Author: Marylin (Rn) HOWARD Miller Service: Care Management Author Type: Registered Nurse Type: Care Mgt Initial Assessment Filed: 04/27/2020 10:33 AM Note Text: CARE MANAGEMENT: ASSESSMENT AND DISCHARGE PLAN SERVICE DATE: April 27, 2020 SERVICE TIME: 10:29 AM PRIMARY CARE PHYSICIAN: Willam Estrada MD ADMISSION STATUS: Inpatient Needs Prior to Discharge: To Be Determined;OT/PT Evaluation MEDICAL: MEDICARE A AND B 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 Last discharge within 30 days: No Advance Directive: Current Advance Directive: None Postpartum Rn Attempted to Assist with AD Completion: Yes Action: Education Provided;Patient Unwilling Health LiteracyHow often do you need to have someone help you when you read instructions, pamphlets, or other written material from your doctor or pharmacy? : 1 - Never How confident are you filling out medical forms by yourself?: 1 - Extremely If Patient scores > 3 on either question, the following interventions were put into place:: Patient did not score > 3 on either question. Baseline Mental Status Prior to this Illness what was the patient's Baseline Mental Status?: Alert AND Oriented Prior to this illness, has anyone described the patient having any of the following behaviors?: Not Applicable Relationship of the informant to the patient:: Self Functional Status: Independent Does Patient Currently Receive Any Community Services or Home Care?: None Equipment Prior to Admission: Walker;Elevated toilet seat;Bi-level Positive Airway Pressure/Continuous Positive Airway Pressure SOCIAL: Living Arrangements: Home Lives With: Friend(s) Financial Resources: DisabledPrimary Contact: Extended Emergency Contact Information Primary Emergency Contact: Bina Leigh Mobile Relation: Friend Secondary Emergency Contact: Leila Mccormick Mobile Relation: Daughter Supportive Patient Contact:: Yes Contact Resources: Family Family Name/Phone: Daughter Leila Mccormick [phone] Social Needs Food insecurity Worry: Patient refused Inability: Patient refused Resources Needed: No Social Needs Financial resource strain: Not very hard Social Needs Transportation needs Medical: Patient refused Non-medical: Patient refused Caregiver AssessmentCaregiver is ready, willing and able to meet the patient's needs as recommended by the inter-professional team:: No Caregiver needed Does the patient have an acute stroke diagnosis, or has the patient had a stroke during this admission?: No Patient's transition needs and plan for meeting these needs: TBD Patient's perception of need for this admission: lumbar stenosis Medication Adherance I am convinced of the importance of my prescription medication: 0 - Agree Completely I worry that my prescription medication will do more harm than good to me : 0 - Disagree Completely I feel financially burdened by my msu-ve-huzick expenses for my prescription medication:: 0 - Disagree Completely Risk Score: 0 Patient is categorized as: Low risk < 2 Are you interested in bedside delivery of your medications? No Is Patient Psychosocially Complex?: No ASSESSMENT AND PLAN: Medical Needs: Medical Needs: Two or more chronic diseases;Diabetes Diabetes: (managed) Psychosocial Needs: Psychosocial Needs: Mental Health Diagnosis Mental Health Information: depression, and anxiety FREEDOM OF CHOICE EXPLAINED: [place] of Choice Given: Yes Level of Care Discussed: Home Care Financial Disclosure Provided: Yes Financial Disclosure Comments: via careport Provider List: Home Care Provider list within the patient's requested geographic area shared with the patient/family: Yes within: 10 miles of zip code: [address] Quality and resource use metrics shared with the patient that are relevant to the patient's goals of care and treatment preferences:: Yes Metrics: Functional Status;Potentially Preventable 30-day Post Discharge Readmission Rates POTENTIAL TRANSITION PLANS Home OT/PT;Outpatient Therapy;To Be Determined CM spoke via phone for initial assessment, d/t covid result pending. Pt from home w/ friends, per pt IPTA, until starting having pain in legs, numbness and tingling. Pt is currently living with friends but planning to eventually get her own residence next year. Pt owns walker, elevated toilet seat, Bipap. Per pt not compliant with wearing bipap at home d/t mask always bothering her. Pt w/ previous knee surgery and had outpatient PT therapy. Pt agrees to homecare services if covered by insurance. Pending PT/OT recommendations. List of homecare agencies provided to pt. Currently pt NPO for possible surgery. CM to follow. SIGNATURE: Marylin Miller RN PATIENT NAME: Garland De Santiago DATE: April 27, 2020 TIME: 10:28 AM PAGER/CONTACT #: [phone] Normal [facility] CBCon 04-27-2020 Absolute nRBC <0.01 Normal <0.01 [facility] Comment on above: Performed By: #### P TT, CMP, CBC, MG1, PT ####[place] [phone] Erythrocyte distribution width (RBC) [Ratio] 13.5 % Normal 11.5-15.0 [facility] Comment on above: Performed By: #### P TT, CMP, CBC, MG1, PT ####[place] [phone] Hematocrit (Bld) [Volume fraction] 40.4 % Normal 36.0-46.0 [facility] Comment on above: Performed By: #### P TT, CMP, CBC, MG1, PT ####[place] [phone] Hemoglobin (Bld) [Mass/Vol] 13.6 g/dL Normal 11.5-15.5 [facility] Comment on above: Performed By: #### P TT, CMP, CBC, MG1, PT ####[place] [phone] MCH (RBC) [Entitic mass] 28.4 pG Normal 26.0-34.0 [facility] Comment on above: Performed By: #### P TT, CMP, CBC, MG1, PT ####[place] [phone] MCHC (RBC) [Mass/Vol] 33.7 g/dL Normal 30.5-36.0 [facility] Comment on above: Performed By: #### P TT, CMP, CBC, MG1, PT ####[place] [phone] MCV (RBC) [Entitic vol] 84.3 fL Normal 80.0-100.0 [facility] Comment on above: Performed By: #### P TT, CMP, CBC, MG1, PT ####[address] [phone] Platelet mean volume (Bld) [Entitic vol] 9.6 fL Normal 9.0-12.7 [facility] Comment on above: Performed By: #### P TT, CMP, CBC, MG1, PT ####[address] [phone] Platelets (Bld) [#/Vol] 307 10*3/uL Normal 150-400 [facility] Comment on above: Performed By: #### P TT, CMP, CBC, MG1, PT ####[address] [phone] RBC (Bld) [#/Vol] 4.79 10*6/uL Normal 3.90-5.20 [facility] Comment on above: Performed By: #### P TT, CMP, CBC, MG1, PT ####[place] [phone] WBC (Bld) [#/Vol] 8.44 10*3/uL Normal 3.70-11.00 [facility] Comment on above: Performed By: #### P TT, CMP, CBC, MG1, PT ####[address] [phone] CONSULTon 04-27-2020 CONSULT HNO ID: [id number] Author: Gerri Small Service: Neurosurgery Author Type: Physician Type: Consults Filed: 04/27/2020 4:17 PM Note Text: CONSULT: NEUROSURGERY SERVICE SERVICE DATE: 04/27/2020 SERVICE TIME: 9:25 AM REASON FOR CONSULT: Back and lower extremity pain PRIMARY CARE PHYSICIAN: Willam Estrada MD Subjective Ms. De Santiago is a 59 year old female who presents with four days of bilateral lower extremity pain, right greater than left. At baseline she has peripheral neuropathy in her feet which is chronic and for which she takes gabapentin, 600 mg in the morning and 900 mg in the evening. She reports the gabapentin has done nothing for this new lower extremity pain. She reports her pain radiates directly down the posterior leg to the foot. She reports difficulty ambulating due to pain. She denies any issues with bowel incontinence, though she states she is having a hard time bearing down to urinate, and her ability to sense when she has to go is diminished due to perianal and groin numbness. She denies major issues with the upper extremities, she states she drops things occasionally and has some mild tingling in all of her fingertips. She denies truncal paresthesias. She states she has never had problems with her back previously, and these symptoms in the back and leg are entirely new. She has not been seen for physical therapy and has not undergone any injections in the low back. FUNCTIONAL STATUS: Independent PAST MEDICAL HISTORY Diagnosis Date - Allergic rhinitis due to other allergen - Allergic rhinitis, cause unspecified 02/10/2007 - Anxiety - Anxiety disorder in conditions classified elsewhere - Asthma 02/10/2007 - Depression Psychiatrist managing (Dr. Bedolla) - Depressive disorder, not elsewhere classified - DM type 2 (diabetes mellitus, type 2) ([facility]) - Essential hypertension 05/23/2006 - Hemorrhage of gastrointestinal tract, unspecified 12/13/2011 Had bleeding hemorrhoids in 2011; normal colonoscopy - Impaired fasting glucose 05/23/2006 - Mixed hyperlipidemia 05/23/2006 - Obesity (BMI 30.0-34.9) - YARY (obstructive sleep apnea) Uses BiPAP occasionally - Other nonspecific abnormal finding 05/23/2006 CK Elevation - Snoring PAST SURGICAL HISTORY Procedure Laterality Date - ANTER COLPORRHAPHY,BLAD/VAGINA Cystocele repair - APPENDECTOMY - COLONOSCOP W/ OR W/O [facility] SPEC 12/13/2011 Colonoscopy repeat 10 years - EGD W/O OR W/BRUSH/WASH 02/09/16 EGD - L'SCOPE DX W/WO BRUSHINGS/WASHINGS Laparoscopy - LAP CHOLECYSTECT/CHOLANGIOGRA PHY 10/07/06 - LIGATE FALLOPIAN TUBE Tubal ligation - PAST SURGICAL HISTORY OF 06/22/2010 right knee arthroscopy- by Dr Dawson ([facility]) - REMOVAL ADENOIDS,PRIMARY,<12 Y/O Adenoidectomy - REMOVAL OF TONSILS,<12 Y/O Tonsillectomy - TOTAL KNEE REPLACEMENT 07/2015 right - VAGINAL HYSTERECTOMY Hysterectomy, vaginal for menorrhagia FAMILY HISTORY Problem Relation Age of Onset - Hypertension Mother history of glaucoma - Cervical Cancer Mother - Asthma Mother - Heart Father [place] x 2 - Cancer Father Lung, metastatic to bone, age 77 - other (aortic aneurysm) Father 50 - Thyroid Sister Had to have radioactive iodine ablation - Thyroid Sister Hypothyroidism - Cancer Sister Lung, LLL. Resected. - No Known Problems Son - No Known Problems Daughter Social History Tobacco Use - Smoking status: Current Every Day Smoker Packs/day: 1.00 Years: 36.00 Pack years: 36.00 Types: Cigarettes - Smokeless tobacco: Never Used - Tobacco comment: 1 ppd Substance Use Topics - Alcohol use: No - Drug use: No - lisinopril (ZESTRIL, PRINIVIL) 20 mg tablet, Take 1 tablet by mouth once daily., Disp: 30 tablet, Rfl: , 04/26/2020 at Unknown time - metFORMIN (GLUCOPHAGE) 500 mg tablet, Take 1 tablet by mouth twice daily., Disp: 60 tablet, Rfl: 11 - sertraline (ZOLOFT) 100 mg tablet, Take 2 tablets by mouth once daily., Disp: 60 tablet, Rfl: , 04/25/2020 at Unknown time - ibuprofen (MOTRIN) 600 mg tablet, Take 1 tablet by mouth every 6 hours as needed for Pain (take with food)., Disp: 90 tablet, Rfl: 0, Past Week at Unknown time - ALPRAZolam (XANAX) 0.5 mg tablet, Take 1 tablet by mouth at bedtime as needed for up to 60 days. Do not start before March 02, 2020., Disp: 30 tablet, Rfl: 04/26/2020 at Unknown time - gabapentin (NEURONTIN) 300 mg capsule, Take 2 capsules by mouth once daily for 180 days. Then take three capsules at bedtime, Disp: 60 capsule, Rfl: , 04/26/2020 at Unknown time - busPIRone (BUSPAR) 15 mg tablet, Take 0.5 tablets by mouth twice daily., Disp: 30 tablet, Rfl: 04/26/2020 at Unknown time - gemfibrozil (LOPID) 600 mg tablet, Take 1 tablet by mouth twice daily., Disp: 60 tablet, Rfl: , 04/26/2020 at Unknown time - atenolol (TENORMIN) 50 mg tablet, Take 1 tablet by mouth once daily., Disp: 30 tablet, Rfl: , 04/26/2020 at Unknown time - furosemide (LASIX) 20 mg tablet, Take 1 tablet by mouth once daily., Disp: 30 tablet, Rfl: , 04/26/2020 at Unknown time - traZODone (DESYREL) 100 mg tablet, Take 1 tablet by mouth daily at bedtime., Disp: 30 tablet, Rfl: , 04/25/2020 - potassium chloride (K-TAB) 10 mEq tablet, Take 1 tablet by mouth daily with breakfast., Disp: 30 tablet, Rfl: 04/26/2020 at Unknown time - urea (CARMOL) 40 %, Apply to affected area as needed., Disp: 189.6 g, Rfl: 11 - omeprazole (PRILOSEC) 20 mg capsule, Take 1 capsule by mouth twice daily., Disp: 180 capsule, Rfl: 2 - benzonatate (TESSALON PERLE) 100 mg capsule, Take 2 capsules by mouth three times daily as needed., Disp: 42 capsule, Rfl: 0 - cetirizine (ZYRTEC) 10 mg tablet, Take 1 tablet by mouth once daily., Disp: 30 tablet, Rfl: 5 - fluticasone (FLONASE) 50 mcg/actuation nasal spray, Use 1 [place] in each nostril once daily., Disp: 1 Bottle, Rfl: 5 - albuterol HFA (VENTOLIN HFA) 90 mcg/actuation inhaler, Inhale 2 Puffs as instructed every 4 hours as needed., Disp: 18 g, Rfl: 3 - zoster vaccine, recombinant, adjuvanted, (SHINGRIX, PF,) 50 mcg/0.5 mL injection, Inject 0.5 mL intramuscularly now and repeat 2nd dose in 2-6 months, Disp: 1 Each, Rfl: 1 - aspirin, enteric coated (ECOTRIN LOW STRENGTH) 81 mg EC tablet, Take 1 tablet by mouth twice daily. (Patient not taking: Reported on 04/06/2020 ), Disp: 60 tablet, Rfl: 0 - blood sugar diagnostic (TRUE METRIX GLUCOSE TEST STRIP) test strip, Test blood sugars twice a day DX: E11.65 Insulin: No Use as instructed, Disp: 200 Strip, Rfl: 3 - Blood-Glucose Meter monitoring kit, Insurance covered or per patient choice. Test blood sugar twice daily plus as needed for symptoms of blood sugars being too high or low. Dx: Type 2 DM - Uncontrolled E11.65 Insulin:No, Disp: 1 Each, Rfl: 0 - blood sugar diagnostic (BLOOD GLUCOSE TEST) test strip, Test blood sugar(s) 2 times daily. Dx: Type 2 DM - Uncontrolled .65 Insulin: No, Disp: 50 Strip, Rfl: 11 - Lancets lancets, Test blood sugar(s) 2 times daily. Dx: Type 2 DM - Uncontrolled E11.65 Insulin: No, Disp: 100 Each, Rfl: 11 - clotrimazole-betamethason e (LOTRISONE) cream, Apply 1 application to affected area once daily. TO AFFECTED AREA., Disp: 45 g, Rfl: 2 - fluticasone-vilanterol (BREO ELLIPTA) 100-25 mcg/dose inhaler, Inhale 1 Inhalation as instructed once daily., Disp: 1 Each, Rfl: 11 - albuterol (PROVENTIL) 2.5 mg /3 mL (0.083 %) nebulizer solution, Use 3 mL via nebulizer every 4 hours as needed for Wheezing/Shortness of Breath., Disp: 50 Vial, Rfl: 1 - ipratropium (ATROVENT) 0.02 % nebulizer solution, Use 2.5 mL via nebulizer four times daily. Unit dose pack of 50, Disp: 50 Vial, Rfl: 1 - triamcinolone acetonide (KENALOG) 0.1 % cream, Apply 1 application to affected area three times daily as needed. Apply sparingly to area for rash/itching., Disp: 30 g, Rfl: 0 - nystatin (MYCOSTATIN) cream, Apply 1 application to affected area twice daily. Apply for another week after rash resolves. Treat again as needed as directed, Disp: 30 g, Rfl: 1 - urea (CARMOL) 40 % lotn, Apply 1 application to affected area twice daily., Disp: 1 Bottle, Rfl: 5 - Nebulizer, NEBULIZER FOR HOME USE. DX: J45.42, Disp: 1 Each, Rfl: 0 - BIPAP, Initiate BiPAP @ 20/14 cm of water with heated humidification. Ti Max 1.0, Ti Min 0.3, trigger medium, cycle high. Mask (medium AirFit F10 full face mask or per patient preference) optional chin strap (if indicated) , filters, tubing, humidifier and lifetime supplies., Disp: 1 Device, Rfl: 0 Current Facility-Administered Medications Medication Dose Route Frequency - sodium chloride 0.9 % (flush) 3-5 mL (BD POSIFLUSH) 3-5 mL INTRAVENOUS q 12 H - acetaminophen 650 mg tab(s) (TYLENOL) 650 mg ORAL q 6 H PRN - melatonin 3 mg tab(s) 3 mg ORAL HS PRN - nicotine 21 mg/24 hr 1 Patch (NICODERM) 1 Patch TRANSDERMAL DAILY And - [START ON 04/28/2020] nicotine -- REMOVE patch OTHER DAILY And - nicotine - verify patch OTHER q 8 H - busPIRone 7.5 mg tab(s) (BUSPAR) 7.5 mg ORAL BID - loratadine 10 mg tab(s) (CLARITIN) 10 mg ORAL DAILY - gabapentin 600 mg cap(s) (NEURONTIN) 600 mg ORAL DAILY - atenolol 50 mg tab(s) (TENORMIN) 50 mg ORAL DAILY - gemfibrozil 600 mg tab(s) (LOPID) 600 mg ORAL BID - pantoprazole DR 20 mg tab(s) (PROTONIX) 20 mg ORAL BID AC (0600/1600) - sertraline 200 mg tab(s) (ZOLOFT) 200 mg ORAL DAILY - traZODone 100 mg tab(s) (DESYREL) 100 mg ORAL AT BEDTIME - gabapentin 900 mg cap(s) (NEURONTIN) 900 mg ORAL DAILY AT 9 PM - ketorolac 15 mg injection (TORADOL) 15 mg INTRAVENOUS q 6 H PRN - hydrALAZINE 10 mg injection (APRESOLINE) 10 mg INTRAVENOUS q 6 H PRN - dextrose 40 % 15 g 15 g ORAL PRN Or - glucagon 1 mg injection 1 mg INTRAMUSCULAR PRN Or - dextrose 50% in water 25 mL syringe 12.5 g INTRAVENOUS PRN - ipratropium-albuterol 3 mL nebulizer solution (DUONEB) 3 mL INHALATION q 4 H while awake - insulin lispro injection (rapid acting) (HumaLOG) SUBCUTANEOUS q 6 H Allergies As of Date: 04/26/2020 Allergen Noted Reaction DILAUDID [HYDROMORPHONE (BULK)] 11/16/2010 Mental Status Change DUST MITES 02/13/2007 PAXIL [PAROXETINE] 02/17/2019 Intolerance PENICILLINS 05/01/2005 Hives and Other: See Comments PROZAC [FLUOXETINE HCL] 05/01/2005 Mental Status Change and Diarrhea PSEUDOEPHEDRINE 09/21/2015 Intolerance VICODIN [HYDROCODONE-ACETAMINOPHE *09/07/2019 GI Upset Fully Assessed 04/06/2020 COMPLETE REVIEW OF SYSTEMS: PAIN ASSESSMENT: CURRENTLY HAVING PAIN; see HPI GENERAL: No weight loss, malaise or fevers HEENT: Negative for frequent or significant headaches, No changes in hearing or vision, no nose bleeds or other nasal problems NECK: Negative for lumps, goiter, pain and significant neck swelling RESPIRATORY: Negative for cough, hemoptysis, wheezing, COPD, dyspnea or shortness of breath CARDIOVASCULAR: Negative for chest pain, leg swelling, hypertension, CHF or palpitations GI: No nausea, vomiting, or diarrhea : difficulty voiding MUSCULOSKELETAL: back pain and bilateral leg pain, right greater than left SKIN: Negative for lesions, rash, and itching PSYCH: Negative for sleep disturbance, mood disorder and recent psychosocial stressors NEURO: No history of headaches, syncope, paralysis, seizures or tremors Objective PHYSICAL EXAM: Physical Exam Performed: GENERAL: Alert, no distress, cooperative SKIN: Skin color, texture, turgor normal. No rashes or lesions. HEAD/SINUSES: No significant findings EYES: PERRLA, EOMI NECK: No jugulovenous distention, Supple BACK: Back symmetric, Normal curvature, No CVAT. EXTREMITIES: Extremities normal, no deformities, edema, clubbing or skin discoloration. Good capillary refill., No ulcers, 5/5 motor strength in all muscle groups bilaterally NEURO: Cranial nerves II-XII intact, Antalgic gait. Diminished sensation along right lateral leg both proximal and distal Negative Clonus, Negative Cotton's, Positive SLR on the right BP 140/78 Pulse 74 Temp (Src) 98.4 (Oral) Resp 16 Ht 5' 6 (1.68m) Wt 199 lb 1.2 oz (90.3kg) SpO2 97% BMI 32.15 kg/(m2). O2 Therapy: Room Air DATA: Diagnostic tests reviewed for today's visit: Most recent labs and imaging results. MRI Lumbar - 04/26/2020 Moderate central canal stenosis at L4-5 secondary to significant facet joint and ligamentum flavum hypertrophy Impression/Recommendation s Active Problems: Ms. De Santiago is a 59 year old female who presents with a four day history of bilateral lower extremity pain, worse on the right, with associated numbness and reported perianal and groin numbness causing difficulty voiding urine. She reports these symptoms are completely new for her and she has only experienced peripheral neuropathy in her feet bilaterally previous to this. Clinically, she does not demonstrate any objective weakness on exam though does have some diminished touch sensation to the right lateral leg. Clinical imaging findings and exam findings were discussed today with Dr. Small. He will evaluate Ms. De Santiago and discuss potential treatment interventions with her, including surgical intervention. Note will be updated with Dr. Small's findings pending his evaluation. For now, continue pain control per primary team. Resolved Problems: * No resolved hospital problems. * SIGNATURE: Deirdre Naidu PA-C PATIENT NAME: Garland De Santiago DATE: April 27, 2020 TIME: 9:23 AM PAGER: [phone] Staff addendum Mrs. De Santiago is a pleasant 59-year-old female admitted with a history of bilateral lower extremity pain, worse on right side associated with the numbness. Noticed perianal and groin numbness for the past 2 days. Has hesitancy of urination. No bladder or bowel incontinence. Currently on gabapentin 600 and leg twice a day. No previous spine surgery. Known diabetic. Last A1c done on 07/02/19 is 7.8 Neurological examination showed stable gait, no motor weakness. MRI lumbar spine showed mild to moderate lumbar canal stenosis at L3 4 level. Moderate to severe lumbar canal stenosis at L4 5 level. Discussed clinical, imaging finding. I showed her images and explained in detail. Discussed treatment option for lumbar canal stenosis with neurogenic claudication, groin numbness which includes continuing conservative treatment with the gabapentin, back exercises, pain medication, outpatient L4 5 transforaminal epidural injection and the surgical intervention. Considering groin numbness and walking difficulty - surgery is the better option. Discussed in detail about L4 laminectomy with decompression of L4 5 canal stenosis with bilateral root foraminotomy surgical procedure, its advantages and risks. All her questions were answered. Mrs. De Santiago wants to proceed with surgery. Tentatively scheduled for surgery on 04/29/2020 Gerri Small MD Staff, Neurosurgery [facility] Comp Metabolic Panelon 04-27 Albumin [Mass/Vol] 3.8 g/dL Normal 3.5-5.0 [facility] Comment on above: Performed By: #### P TT, CMP, CBC, MG1, PT ####[place] [phone] ALP [Catalytic activity/Vol] 78 U/L Normal 34-123 [facility] Comment on above: Performed By: #### P TT, CMP, CBC, MG1, PT ####[place] [phone] ALT [Catalytic activity/Vol] 13 U/L Normal 0-45 [facility] Comment on above: Result Comment: Kong connor present Performed By: #### P TT, CMP, CBC, MG1, PT ####[place] [phone] Anion gap [Moles/Vol] 8 mmol/L Low 9-18 [facility] Comment on above: Performed By: #### P TT, CMP, CBC, MG1, PT ####[place] [phone] AST [Catalytic activity/Vol] U/L Low 7-40 [facility] Comment on above: Performed By: #### P TT, CMP, CBC, MG1, PT ####[place] [phone] Bilirubin [Mass/Vol] mg/dL Low 0.2-1.3 [facility] Comment on above: Performed By: #### P TT, CMP, CBC, MG1, PT ####[place] [phone] Calcium [Mass/Vol] 8.9 mg/dL Normal 8.5-10.5 [facility] Comment on above: Performed By: #### P TT, CMP, CBC, MG1, PT ####[place] [phone] Chloride [Moles/Vol] 104 mmol/L Normal 98-110 [facility] Comment on above: Performed By: #### P TT, CMP, CBC, MG1, PT ####[place] [phone] CO2 [Moles/Vol] 26 mmol/L Normal 23-32 [facility] Comment on above: Performed By: #### P TT, CMP, CBC, MG1, PT ####[place] [phone] Creatinine [Mass/Vol] 0.57 mg/dL Low 0.70-1.40 [facility] Comment on above: Performed By: #### P TT, CMP, CBC, MG1, PT ####[place] [phone] eGFR- Amer. >60 Normal >60 [facility] Comment on above: Performed By: #### P TT, CMP, CBC, MG1, PT ####[place] [phone] GFR/1.73 sq M predicted among non-blacks MDRD (S/P/Bld) [Vol rate/Area] mL/min/{1.73_m2} Normal >60 [facility] Comment on above: Performed By: #### P TT, CMP, CBC, MG1, PT ####[place] [phone] Glucose [Mass/Vol] 117 mg/dL High 65-100 [facility] Comment on above: Performed By: #### P TT, CMP, CBC, MG1, PT ####[place] [phone] Potassium [Moles/Vol] 3.6 mmol/L Normal 3.5-5.0 [facility] Comment on above: Performed By: #### P TT, CMP, CBC, MG1, PT ####[place] [phone] Protein [Mass/Vol] 6.4 g/dL Normal 6.0-8.4 [facility] Comment on above: Performed By: #### P TT, CMP, CBC, MG1, PT ####[facility] [place], [place] [phone] Sodium [Moles/Vol] 138 mmol/L Normal 132-148 [facility] Comment on above: Performed By: #### P TT, CMP, CBC, MG1, PT ####[facility] [place], [place] [phone] Urea nitrogen [Mass/Vol] 19 mg/dL Normal 8-25 [facility] Comment on above: Performed By: #### P TT, CMP, CBC, MG1, PT ####[facility] [place], [place] [phone] 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 [facility] Comment on above: Result Comment: This test was developed and its performance characteristics determined by [facility]'s Tab [facility] Pathology and Laboratory Medicine [place]. This test has been authorized by FDA under an Emergency Use Authorization (EUA). This test has been validated in accordance with the FDA's Guidance Document Policy for Diagnostics Testing in Laboratories Certified to Perform High Complexity Testing under CLIA prior to Emergency use Authorization for Coronavirus Disease 2019 during the Public Health Emergency issued on November 07, 2019. 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 Normal [facility] Comment on above: Performed By: #### C OVID ####[facility] [place], [place] [phone] [id number] [place], [place] [phone] HISTORY PHYSICALon 0 HISTORY PHYSICAL HNO ID: [id number] Author: May Huizar Service: Hospital Medicine Author Type: Physician Type: HANDP Filed: 04/27/2020 5:53 AM Note Text: DEPARTMENT OF HOSPITAL MEDICINE HISTORY AND PHYSICAL EXAM SERVICE DATE: 04/27/2020 SERVICE TIME: 3:38 AM Primary Care Physician: Willam Estrada MD NIGHT AND WEEKEND COVERAGE: [place] COVERAGE:Days: [phone], please page me for patient issues. Nights: [phone], please page [facility] Hospitalist Night Coverage pager: [phone]. Subjective CHIEF COMPLAINT: Bilateral leg pain of 4 days duration HPI: This is a 59 year old female who has PMH of HTN, HLD, T2DM, allergic rhinitis and peripheral neuropathy presented with bilateral lower limb pain of 4 days duration. The pain started on Saturday,bilateral but more on the right side ,from the the buttocks all the way down to feet, increased by walking and relived by laying down. The pain is burning in nature and 8/10 when she walks and 5/10 when she sets.it's constant and radiates to the lower and mid back and sometime wakes her up from the sleep. The pain is getting worse and it's associated with numbness from the buttocks down to feet. The numbness started 3 days ago and associated with decreases sensation, more on the right. Yesterday's morning the patient noticed some weakness in her right thigh and she also noticed that she has a weak stream but denied any urinary or fecal incontinence. She complained of perianal numbness that started today as well. The patient she has weakness in squeezing her pelvic muscle. The patient also complains of headache taht started 2 days ago, continuous, not aggravated by anything but improves with Ibuprofen. She denied any fever, chills, weight loss. The patient also denied any loss of consciousness, seizure, confusion or blurry vision. PAST MEDICAL HISTORY Diagnosis Date - Allergic rhinitis due to other allergen - Allergic rhinitis, cause unspecified 02/10/2007 - Anxiety - Anxiety disorder in conditions classified elsewhere - Asthma 02/10/2007 - Depression Psychiatrist managing (Dr. Bedolla) - Depressive disorder, not elsewhere classified - DM type 2 (diabetes mellitus, type 2) (HCC) - Essential hypertension 05/23/2006 - Hemorrhage of gastrointestinal tract, unspecified 12/13/2011 Had bleeding hemorrhoids in 2011; normal colonoscopy - Impaired fasting glucose 05/23/2006 - Mixed hyperlipidemia 05/23/2006 - Obesity (BMI 30.0-34.9) - YARY (obstructive sleep apnea) Uses BiPAP occasionally - Other nonspecific abnormal finding 05/23/2006 CK Elevation - Snoring PAST SURGICAL HISTORY Procedure Laterality Date - ANTER COLPORRHAPHY,BLAD/VAGINA Cystocele repair - APPENDECTOMY - COLONOSCOP W/ OR W/O BRSH SPEC 12/13/2011 Colonoscopy repeat 10 years - EGD W/O OR W/BRUSH/WASH 02/09/16 EGD - L'SCOPE DX W/WO BRUSHINGS/WASHINGS Laparoscopy - LAP CHOLECYSTECT/CHOLANGIOGRA PHY 10/07/06 - LIGATE FALLOPIAN TUBE Tubal ligation - PAST SURGICAL HISTORY OF 06/22/2010 right knee arthroscopy- by Dr Dawson ([facility]) - REMOVAL ADENOIDS,PRIMARY,<12 Y/O Adenoidectomy - REMOVAL OF TONSILS,<12 Y/O Tonsillectomy - TOTAL KNEE REPLACEMENT 07/2015 right - VAGINAL HYSTERECTOMY Hysterectomy, vaginal for menorrhagia FAMILY HISTORY Problem Relation Age of Onset - Hypertension Mother history of glaucoma - Cervical Cancer Mother - Asthma Mother - Heart Father [place] x 2 - Cancer Father Lung, metastatic to bone, age 77 - other (aortic aneurysm) Father 50 - Thyroid Sister Had to have radioactive iodine ablation - Thyroid Sister Hypothyroidism - Cancer Sister Lung, LLL. Resected. - No Known Problems Son - No Known Problems Daughter Social History Tobacco Use - Smoking status: Current Every Day Smoker Packs/day: 1.00 Years: 36.00 Pack years: 36.00 Types: Cigarettes - Smokeless tobacco: Never Used - Tobacco comment: 1 ppd Substance Use Topics - Alcohol use: No - Drug use: No MEDICATIONS: Reviewed - lisinopril (ZESTRIL, PRINIVIL) 20 mg tablet, Take 1 tablet by mouth once daily., Disp: 30 tablet, Rfl: 11, 04/26/2020 at Unknown time - metFORMIN (GLUCOPHAGE) 500 mg tablet, Take 1 tablet by mouth twice daily., Disp: 60 tablet, Rfl: 11 - sertraline (ZOLOFT) 100 mg tablet, Take 2 tablets by mouth once daily., Disp: 60 tablet, Rfl: 5, 04/25/2020 at Unknown time - ibuprofen (MOTRIN) 600 mg tablet, Take 1 tablet by mouth every 6 hours as needed for Pain (take with food)., Disp: 90 tablet, Rfl: 0, Past Week at Unknown time - ALPRAZolam (XANAX) 0.5 mg tablet, Take 1 tablet by mouth at bedtime as needed for up to 60 days. Do not start before March 02, 2020., Disp: 30 tablet, Rfl: 04/26/2020 at Unknown time - gabapentin (NEURONTIN) 300 mg capsule, Take 2 capsules by mouth once daily for 180 days. Then take three capsules at bedtime, Disp: 60 capsule, Rfl: 04/26/2020 at Unknown time - busPIRone (BUSPAR) 15 mg tablet, Take 0.5 tablets by mouth twice daily., Disp: 30 tablet, Rfl: 04/26/2020 at Unknown time - gemfibrozil (LOPID) 600 mg tablet, Take 1 tablet by mouth twice daily., Disp: 60 tablet, Rfl: 04/26/2020 at Unknown time - atenolol (TENORMIN) 50 mg tablet, Take 1 tablet by mouth once daily., Disp: 30 tablet, Rfl: 04/26/2020 at Unknown time - furosemide (LASIX) 20 mg tablet, Take 1 tablet by mouth once daily., Disp: 30 tablet, Rfl: 04/26/2020 at Unknown time - traZODone (DESYREL) 100 mg tablet, Take 1 tablet by mouth daily at bedtime., Disp: 30 tablet, Rfl: 04/25/2020 - potassium chloride (K-TAB) 10 mEq tablet, Take 1 tablet by mouth daily with breakfast., Disp: 30 tablet, Rfl: 04/26/2020 at Unknown time - urea (CARMOL) 40 %, Apply to affected area as needed., Disp: 189.6 g, Rfl: 11 - omeprazole (PRILOSEC) 20 mg capsule, Take 1 capsule by mouth twice daily., Disp: 180 capsule, Rfl: 2 - benzonatate (TESSALON PERLE) 100 mg capsule, Take 2 capsules by mouth three times daily as needed., Disp: 42 capsule, Rfl: 0 - cetirizine (ZYRTEC) 10 mg tablet, Take 1 tablet by mouth once daily., Disp: 30 tablet, Rfl: 5 - fluticasone (FLONASE) 50 mcg/actuation nasal spray, Use 1 [place] in each nostril once daily., Disp: 1 Bottle, Rfl: 5 - albuterol HFA (VENTOLIN HFA) 90 mcg/actuation inhaler, Inhale 2 Puffs as instructed every 4 hours as needed., Disp: 18 g, Rfl: 3 - zoster vaccine, recombinant, adjuvanted, (SHINGRIX, PF,) 50 mcg/0.5 mL injection, Inject 0.5 mL intramuscularly now and repeat 2nd dose in 2-6 months, Disp: 1 Each, Rfl: 1 - aspirin, enteric coated (ECOTRIN LOW STRENGTH) 81 mg EC tablet, Take 1 tablet by mouth twice daily. (Patient not taking: Reported on 04/06/2020 ), Disp: 60 tablet, Rfl: 0 - blood sugar diagnostic (TRUE METRIX GLUCOSE TEST STRIP) test strip, Test blood sugars twice a day DX: E11.65 Insulin: No Use as instructed, Disp: 200 Strip, Rfl: 3 - Blood-Glucose Meter monitoring kit, Insurance covered or per patient choice. Test blood sugar twice daily plus as needed for symptoms of blood sugars being too high or low. Dx: Type 2 DM - Uncontrolled E11.65 Insulin:No, Disp: 1 Each, Rfl: 0 - blood sugar diagnostic (BLOOD GLUCOSE TEST) test strip, Test blood sugar(s) 2 times daily. Dx: Type 2 DM - Uncontrolled E11.65 Insulin: No, Disp: 50 Strip, Rfl: 11 - Lancets lancets, Test blood sugar(s) 2 times daily. Dx: Type 2 DM - Uncontrolled E11.65 Insulin: No, Disp: 100 Each, Rfl: 11 - clotrimazole-betamethason e (LOTRISONE) cream, Apply 1 application to affected area once daily. TO AFFECTED AREA., Disp: 45 g, Rfl: 2 - fluticasone-vilanterol (BREO ELLIPTA) 100-25 mcg/dose inhaler, Inhale 1 Inhalation as instructed once daily., Disp: 1 Each, Rfl: 11 - albuterol (PROVENTIL) 2.5 mg /3 mL (0.083 %) nebulizer solution, Use 3 mL via nebulizer every 4 hours as needed for Wheezing/Shortness of Breath., Disp: 50 Vial, Rfl: 1 - ipratropium (ATROVENT) 0.02 % nebulizer solution, Use 2.5 mL via nebulizer four times daily. Unit dose pack of 50, Disp: 50 Vial, Rfl: 1 - triamcinolone acetonide (KENALOG) 0.1 % cream, Apply 1 application to affected area three times daily as needed. Apply sparingly to area for rash/itching., Disp: 30 g, Rfl: 0 - nystatin (MYCOSTATIN) cream, Apply 1 application to affected area twice daily. Apply for another week after rash resolves. Treat again as needed as directed, Disp: 30 g, Rfl: 1 - urea (CARMOL) 40 % lotn, Apply 1 application to affected area twice daily., Disp: 1 Bottle, Rfl: 5 - Nebulizer, NEBULIZER FOR HOME USE. DX: J45.42, Disp: 1 Each, Rfl: 0 - BIPAP, Initiate BiPAP @ 20/14 cm of water with heated humidification. Ti Max 1.0, Ti Min 0.3, trigger medium, cycle high. Mask (medium AirFit F10 full face mask or per patient preference) optional chin strap (if indicated) , filters, tubing, humidifier and lifetime supplies., Disp: 1 Device, Rfl: 0 ALLERGIES Allergen Reactions - Dilaudid [Hydromorp* Mental Status Change - Dust Mites - Paxil [Paroxetine] Intolerance excessive sweating - Penicillins Hives, Other: See Comments Any medication with penicillin in it. Had been given amoxicillin in 2011 and had reaction Given test dose of 2cc's on 08/17/2019 causing sever flushing along with hypotension - Prozac [Fluoxetine * Mental Status Change, Diarrhea - Pseudoephedrine Intolerance Heart racing - Vicodin [Hydrocodon* GI Upset REVIEW OF SYSTEM: GENERAL: No weight loss, malaise or fevers NECK: Negative for lumps, goiter, pain and significant neck swelling RESPIRATORY: Negative for cough, hemoptysis, wheezing, COPD, dyspnea or shortness of breath CARDIOVASCULAR: Negative for chest pain, leg swelling, hypertension, CHF or palpitations GI: No nausea, vomiting, or diarrhea : No history of dysuria, frequency or incontinence MUSCULOSKELETAL: see HPI ENDOCRINE: Negative for cold or heat intolerance, polyuria, polydipsia and goiter NEURO: No history of headaches, syncope, paralysis, seizures or tremors Objective PHYSICAL EXAM: BP 140/78 Pulse 70 Temp (Src) 98.4 (Oral) Resp 18 Ht 5' 6 (1.68m) Wt 199 lb 1.2 oz (90.3kg) SpO2 98% BMI 32.15 kg/(m2). O2 Therapy: Room Air Physical Exam Performed: GENERAL: Alert, no distress, cooperative OROPHARYNX: Lips, mucosa, and tongue normal. Teeth and gums normal. Oropharynx normal. BACK: Back symmetric, Normal curvature, ROM normal, No CVAT. LUNGS: Lungs clear to auscultation, Good diaphragmatic excursion CARDIAC: Normal S1 and S2; no rubs, murmurs, or gallops ABDOMEN: Abdomen soft, non-tender, BS normal, No masses or organomegaly EXTREMITIES: Extremities normal, no deformities, edema, clubbing or skin discoloration. Good capillary refill., No ulcers NEURO: Grossly normal cognition, motor function, and cranial nerves III-XII, Cranial nerves II-XII intact, Positive findings: decreased sensation over the lateral aspect of the right lower limb PULSES: 2+ radial, 2+ carotid Lines, Drains, and Airways None Patient does not currently have any lines, drains or airways. DATA: Diagnostic tests reviewed for today's visit: Most recent labs and imaging results. Assessment/Plan This is a 59 year old female who has PMH of HTN, HLD, YARY, T2DM, allergic rhinitis and peripheral neuropathy presented with bilateral lower limb pain of 4 days duration and symptoms concerning for cauda equina. [facility]. #Cauda equina -5 days history of bilateral leg pain(more in the rt), back pain, numbness, decreased sensations and perianal numbness. -yesterday, she started to complain from subjective weakness in the rt upper thigh and weakness in squeezing pelvic muscle -started to have some weak stream but in urinary or fecal incontinence. -P/E: power is 5/5 in both limbs. Decreased sensation on the lateral right lower limb. Reflexes +2. Positive straight leg raising -Labs at [facility] : Hb 13.8 Wbc 10 Plt:352 Cr 0.66 Na 143 k 3.5 INR PTT 30 -Urine analysis shows no abnormalities -MRI spine showed : 1-multilevel degenerative changes 2- moderate central canal stenosis at L4-L5 3-right lateral recess stenosis with nerve root compression at L2-L3 -the patient was transferred her for further evaluation. Plan: -neurosurgery consult -PT/OT -Pain control with ketorolac 15 mg Q6h PRN -NPO for possible surgery tomorrow. Consider resuming Carb-controlled diet if no surgery. -PTT, INR -CBC and BMP -No need for steroids now as she doesn't have signs of inflammation #Peripheral Neuropathy -chronic,mostly idiopathic -on gabapentin 600 on the morning and 900 at the evening . -c/W home med #Anxiety and depression -On sertraline, trazodone and buspirone -c/w home med #hyperlipidemia -On Lopid 600 BID -c/w home med #Hypertenstion -On Lisinopril 20 mg daily and atenolol 50 dailly -Hold lisinopril for possible surgery -Hydralazine PRN #T2DM -on Metformin 00 BID -Hold for now -started on SSI 1 #Asthama -On albuterol and ipratropium PRN -started on Douneb PRN Medication and Non-Pharmacologic VTE Prophylaxis/Anticoagulant s 04/27/20 0345 pneumatic compression stockings ([place] 04/27/20 0345 graduated compression [place]) 04/27/20 0345 activity - mobilize [place] ([place]) VTE Prophylaxis: VTE prophylaxis appropriate Disposition: To be determined Plan of care discussed with: Provider, RN, Patient SIGNATURE: Preeti Gupta PATIENT NAME: Garland De Santiago DATE: April 27, 2020 TIME: 3:38 AM PAGER/CONTACT #: [phone] etx [id number] [facility] STAFF PHYSICIAN NOTE OF PERSONAL INVOLVEMENT IN CARE I have reviewed the history and physical examination obtained and documented by the resident/Dr Preeti Gupta and I personally participated in the wilson components. I have discussed the case and management of the patient's care. The following comments revise or confirm relevant wilson components of their note. IMPRESSION: This is a 59 year old female with a PMH significant for obesity with sleep apnea, HTN,HLD, T2 DM , asthma,sciatica,anxiety and depression has presented to ER with C/o fall 6 days ago Bilateral leg pain since past 24 hours associated with numbness and problems walking. Right Leg became extremely painful is numb from lower back to foot now. Pt mainly experienced numbness over her right buttock area with inability to squeeze towards center as she does routinely with urination and defecation. She was unable to pass urine during the day and she finally urinated without overflow incontinence. Her Last BM was on 04/25/20 and was normal. Pt seen and examined. Exam was positive for hyperaesthesia of lateral aspect of right leg along L5 distribution and positive SLR readily demonstrable in RLE. Gait with limp and pain while walking along right leg in the calf area and laterally. Strength was normal and equal in both LE. Reviewed labs and imaging studies from OSH. Xray from 04/25/20 lumbar spine shows normal Lumbar lordosis with mild disc space narrowing from L1-L2 down to L3-L4 as well as retrolisthesis of 2-3 mm at each level.No fracture or compression deformity. MRI lumbar spine from 04/26/20 showed moderate central canal stenosis at L4-L5 and lateral recess stenosis at L2-L3 With nerve compression. Imp:Lumbar spinal stenosis with radiculopathy and Cauda equina compression. Plan: Bed rest, pain relief measures with tylenol, toradol, gabapentin; PT/OT and neurosurgery consults. F/U with Covid test results. Plan of care discussed with Patient CARE COORDINATION: Neurosurgery consults. SIGNATURE: May Huizar MD PAGER: [phone] DATE of SERVICE: April 27, 2020 TIME of SERVICE: 4:05 AM Normal [facility] Magnesiumon 04-27-2020 Magnesium [Mass/Vol] 2.0 mg/dL Normal 1.7-2.6 [facility] Comment on above: Performed By: #### P TT, CMP, CBC, MG1, PT ####[facility] [place], [place] [phone] NURSING PROGon 04-27-2020 NURSING PROG HNO ID: [id number] Author: Divina (Rn) HOWARD Sheffield Service: ? Author Type: Registered Nurse Type: Nursing Progress Note Filed: 04/27/2020 6:38 PM Note Text: Nursing Progress Note Patient Name: Garland De Santiago Patient Location: [facility]3A/ Daily Note: 0730 Received report and assumed care. Resting in bed. No needs. Call light in reach. 0800 AANDOx3. Up independently. Pain in BLE and back. N/T in BLE. Decreased sensation in vinod area leading to difficulty with urinating and bowel movements. NPO for possible surgery. 1130 New order placed for IV decadron Q8. [address] Knutson. Verbal order for carb controlled diet d/t pt likely not going for a surgery today. 1300 Pt had BM. Pt asked if she could go outside for cigarette with friend present at bedside, told that she could not do that, pt agreeable but said she was sad. [address] Small. Pt requested time to discuss with family to decide whether she wants to go forward with a surgery or not. Will update Dr. Small with pt's answer. 1600 Pt states she would like to go forward with surgery. Aware that she will have to wait til Saturday. OK with plan of care. This note was completed by: Divina Sheffield RN [facility] NURSING PROG HNO ID: [id number] Author: Jeff (Rn) HOWARD Hobbs Service: ? Author Type: Registered Nurse Type: Nursing Progress Note Filed: 04/27/2020 2:50 AM Note Text: Nursing Progress Note Patient Name: Garland De Santiago Patient [facility] [place] [id number] Note: Patient transferred into room/unit [facility] in stable condition. Actions taken: Patient belongings with patient. Patient safety maintained. Will continue to monitor. 0250: Awaiting orders. This note was completed by: Jeff Hobbs RN [facility] PROGRESSon 04-27-2020 PROGRESS HNO ID: [id number] Author: Sari Knutson Service: Hospital Medicine Author Type: Physician Type: Progress Notes Filed: 04/27/2020 8:15 PM Note Text: INPATIENT PROGRESS NOTE SERVICE DATE: 04/27/2020 SERVICE TIME: 04/27/20 PRIMARY SERVICE: Hospital Medicine Subjective CHIEF COMPLAINT: Bilateral leg pain of 4 days duration ? 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 The pain started on Saturday,bilateral but more on the right side ,from the buttocks all the way down to feet, increased by walking and relived by laying down. 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 The pain is burning in nature and 8/10 when she walks and 5/10 when she sits.it's constant and radiates to the lower and mid back and sometime wakes her up from the sleep. The pain is getting worse and it's associated with numbness from the buttocks down to feet. The numbness started 3 days ago and associated with decreases sensation, more on the right. Yesterday's morning the patient noticed some weakness in her right thigh and she also noticed that she has a weak stream but denied any urinary or fecal incontinence. She complained of perianal numbness that started today as well. The patient she has weakness in squeezing her pelvic muscle. The patient also complains of headache that started 2 days ago, continuous, not aggravated by anything but improves with Ibuprofen. She denied any fever, chills, weight loss. The patient also denied any loss of consciousness, seizure, confusion or blurry vision. Also C/O numbness in finger tips bilaterally. Current Facility-Administered Medications Medication Dose Route Frequency - sodium chloride 0.9 % (flush) 3-5 mL (BD POSIFLUSH) 3-5 mL INTRAVENOUS q 12 H - acetaminophen 650 mg tab(s) (TYLENOL) 650 mg ORAL q 6 H PRN - melatonin 3 mg tab(s) 3 mg ORAL HS PRN - nicotine 21 mg/24 hr 1 Patch (NICODERM) 1 Patch TRANSDERMAL DAILY And - [START ON 04/28/2020] nicotine -- REMOVE patch OTHER DAILY And - nicotine - verify patch OTHER q 8 H - busPIRone 7.5 mg tab(s) (BUSPAR) 7.5 mg ORAL BID - loratadine 10 mg tab(s) (CLARITIN) 10 mg ORAL DAILY - gabapentin 600 mg cap(s) (NEURONTIN) 600 mg ORAL DAILY - atenolol 50 mg tab(s) (TENORMIN) 50 mg ORAL DAILY - gemfibrozil 600 mg tab(s) (LOPID) 600 mg ORAL BID - pantoprazole DR 20 mg tab(s) (PROTONIX) 20 mg ORAL BID AC (0600/1600) - sertraline 200 mg tab(s) (ZOLOFT) 200 mg ORAL DAILY - traZODone 100 mg tab(s) (DESYREL) 100 mg ORAL AT BEDTIME - gabapentin 900 mg cap(s) (NEURONTIN) 900 mg ORAL DAILY AT 9 PM - ketorolac 15 mg injection (TORADOL) 15 mg INTRAVENOUS q 6 H PRN - hydrALAZINE 10 mg injection (APRESOLINE) 10 mg INTRAVENOUS q 6 H PRN - dextrose 40 % 15 g 15 g ORAL PRN Or - glucagon 1 mg injection 1 mg INTRAMUSCULAR PRN Or - dextrose 50% in water 25 mL syringe 12.5 g INTRAVENOUS PRN - ipratropium-albuterol 3 mL nebulizer solution (DUONEB) 3 mL INHALATION q 4 H while awake - insulin lispro injection (rapid acting) (HumaLOG) SUBCUTANEOUS q 6 H Objective PHYSICAL EXAM: BP 140/78 Pulse 74 Temp (Src) 98.4 (Oral) Resp 16 Ht 5' 6 (1.68m) Wt 199 lb 1.2 oz (90.3kg) SpO2 97% BMI 32.15 kg/(m2). O2 Therapy: Room Air Physical Exam Performed GENERAL: Alert, no distress, cooperative SKIN: Skin color, texture, turgor normal. No rashes or lesions. NECK: No jugulovenous distention, Supple LUNGS: Lungs clear to auscultation, Good diaphragmatic excursion CARDIAC: Normal S1 and S2; no rubs, murmurs, or gallops ABDOMEN: Abdomen soft, non-tender, BS normal, No masses or organomegaly EXTREMITIES: Extremities normal, no deformities, edema, clubbing or skin discoloration. Good capillary refill., No ulcers. Dry skin. NEURO: Grossly normal cognition, motor function, and cranial nerves III-XII, Positive findings: sensory deficit reports generalized reduced sensation in LE bilaterally PULSES: 2+ radial DATA: Diagnostic tests reviewed for today's visit: Most recent labs and imaging results. Assessment/Plan This is a 59 year old female who has PMH of HTN, HLD, YARY, T2DM, allergic rhinitis and peripheral neuropathy presented with bilateral lower limb pain of 4 days duration and symptoms concerning for cauda equina. [facility] ? L2-L3 nerve root compression -5 days history of bilateral leg pain(more in the rt), back pain, numbness, decreased sensations and perianal numbness. -yesterday, she started to complain from subjective weakness in the rt upper thigh and weakness in squeezing pelvic muscle -started to have some weak stream but in urinary or fecal incontinence. -P/E: power is 5/5 in both limbs. Decreased sensation on the lateral right lower limb. Reflexes +2. Positive straight leg raising -Labs Hb 13.8 Wbc 10 Plt:352 Cr 0.66 Na 138 k 3.5 INR PTT 30 -Urine analysis shows no abnormalities -MRI spine showed : 1-multilevel degenerative changes 2- moderate central canal stenosis at L4-L5 3-right lateral recess stenosis with nerve root compression at L2-L3 Neurosurgery advised for L4 laminectomy with decompression of L4 5 canal stenosis with bilateral root foraminotomy ?Plan: -Pain control with ketorolac 15 mg Q6h PRN Continue as per NS Medical assessment for fitness for surgery - low risk for perioperative cardiac complications per RSRI score - incentive spirometry Peripheral Neuropathy -chronic,mostly idiopathic -on gabapentin 600 on the morning and 900 at the evening . -c/W home med ? Anxiety and depression -On sertraline, trazodone and buspirone -c/w home med ? hyperlipidemia -On Lopid 600 BID -c/w home med ? Hypertenstion -On Lisinopril 20 mg daily and atenolol 50 dailly -Hold lisinopril for possible surgery -Hydralazine PRN Echo 05/2014: - The left ventricle is normal in size. There is moderate left ventricular hypertrophy. Left ventricular systolic function is normal. EF = 65 ? 5% (visual est.) Baseline left ventricular diastolic function is normal. - The right ventricle is normal in size. Right ventricular systolic function is normal. - Mildly thickened mitral leaflets with trivial MR. - Trivial TR. RVSP 40mmHg. Mild pulmonary hypertension. - No valvular stenosis. ? #T2DM Hba1c 7.8 on Metformin 500 BID and Gemfibrozil 600mg BID Plan: Restart home meds ? Asthama -On albuterol and ipratropium PRN -started on Douneb PRN PFT 02/2019: Spirometry indicates mild obstruction. The flow volume demonstrates an obstructive pattern. There is no significant bronchodilator response. The TLC, RV and RV/TLC are normal. The diffusing capacity is mildly reduced. The presence of a reduced DLCO that normalizes when corrected for volume is consistent with a non-parenchymal disorder but does not rule out parenchymal or pulmonary vascular disease. The diffusing capacity corrected for volume is normal. ? Medication and Non-Pharmacologic VTE Prophylaxis/Anticoagulant s 04/27/20 034 pneumatic compression stockings ([place]) 04/27/20 034 graduated compression stockings [place]) 04/27/20 034 activity - mobilize [place] ([place]) VTE Prophylaxis: VTE prophylaxis appropriate SIGNATURE: Janelle Kaufman MD PATIENT NAME: Garland De Santiago DATE: April 27, 2020 TIME: 9:19 AM PAGER: [phone] I have seen and evaluated the patient and discussed the case with the resident physician. I have verified and updated the resident?s note to include the final assessment and plan. Sari Knutson MD [facility] Protimeon 04-27-2020 PT Coag (PPP) [Time] 1.0 s Normal 0.9-1.3 [facility] Comment on above: Result Comment: Yany min K Antagonist (VKA) Therapeutic Range: INR 2 to 3 (Target INR of 2.5) Note: For patients treated with VKA drugs, such as warfarin, the [place] [employer] 2012 Guideline recommends a therapeutic INR range of 2 to 3 (target INR of 2.5). This recommendation includes high-risk patients with antiphospholipid syndrome with previous arterial or venous thromboembolism, current-generation mechanical or bioprosthetic aortic heart valve replacement. Note: Patients with mechanical aortic valve replacement and additional risk factors for thromboembolic events (atrial fibrillation, previous thromboembolism, LV dysfunction, hypercoagulable conditions) or an older generation mechanical AVR (i.e., ball in-Cage) or any mechanical MVR should have a INR therapeutic range of 2.5 to 3.5 (target INR of 3). Argelia GH, et al. Chest 2012, 141:7S-47S Mars RA, et al. [facility] 2017, 70: 252-289 Performed By: #### P TT, CMP, CBC, MG1, PT ####[id number] [place], [place] [phone] PT Coag (PPP) [Time] 10.4 s Normal 9.7-13.0 [facility] Comment on above: Performed By: #### P TT, CMP, CBC, MG1, PT ####[id number] [place], [place] [phone] THERAPY NTon 04-27-2020 THERAPY NT HNO ID: [id number] Author: Maday PhanOt/L) Danielle Service: Occupational Therapy Author Type: Occupational Therapist Type: Therapy (PT/OT/Speech/Resp) Filed: 04/27/2020 4:19 PM Note Text: OCCUPATIONAL THERAPY MISSED VISIT SERVICE DATE: 04/27/2020 SERVICE TIME: to ROOM: [place] [address] Attempted Evaluation. Patient not seen due to pending surgery. Pt s/p Neuro consult earlier this date and is deciding about surgical intervention. Per chart, pt is NPO for possible surgery. OT will follow up post-op/as appropriate. SIGNATURE: Maday Santos OT/L PATIENT NAME: Garland Orellanaz DATE: April 27, 2020 TIME: 4:16 PM Normal [facility] THERAPY NT HNO ID: [id number] Author: Shazia PhanPt) Jus Service: Physical Therapy Author Type: Physical Therapist Type: Therapy (PT/OT/Speech/Resp) Filed: 04/27/2020 8:19 AM Note Text: PHYSICAL THERAPY MISSED VISIT SERVICE DATE: 04/27/2020 SERVICE TIME: 817 to 817 ROOM: [place] [address] Attempted Evaluation. Patient not seen due to (bedrest per Dr agrcia; awaits neuroconsult;possible surgery). SIGNATURE: Shazia Luu PT PATIENT NAME: Garland Orellanaz DATE: April 27, 2020 TIME: 8:19 AM Normal [facility] HOSPon 04-26-2020 HOSP Patient:Gurvinder De Santiago MRN: Height:5' 6(1.676 m) Weight:197 lb 1.6 oz (89.404 kg) Outpatient Medications as of 04/29/20: urea (CARMOL) 40 % lisinopril (ZESTRIL, PRINIVIL) 20 mg tablet metFORMIN (GLUCOPHAGE) 500 mg tablet sertraline (ZOLOFT) 100 mg tablet ibuprofen (MOTRIN) 600 mg tablet ALPRAZolam (XANAX) 0.5 mg tablet omeprazole (PRILOSEC) 20 mg capsule benzonatate (TESSALON PERLE) 100 mg capsule cetirizine (ZYRTEC) 10 mg tablet fluticasone (FLONASE) 50 mcg/actuation nasal spray gabapentin (NEURONTIN) 300 mg capsule albuterol HFA (VENTOLIN HFA) 90 mcg/actuation inhaler zoster vaccine, recombinant, adjuvanted, (SHINGRIX, PF,) 50 mcg/0.5 mL injection busPIRone (BUSPAR) 15 mg tablet aspirin, enteric coated (ECOTRIN LOW STRENGTH) 81 mg EC tablet gemfibrozil (LOPID) 600 mg tablet blood sugar diagnostic (TRUE METRIX GLUCOSE TEST STRIP) test strip Blood-Glucose Meter monitoring kit blood sugar diagnostic (BLOOD GLUCOSE TEST) test strip Lancets lancets atenolol (TENORMIN) 50 mg tablet furosemide (LASIX) 20 mg tablet traZODone (DESYREL) 100 mg tablet clotrimazole-betamethason e (LOTRISONE) cream fluticasone-vilanterol (BREO ELLIPTA) 100-25 mcg/dose inhaler potassium chloride (K-TAB) 10 mEq tablet albuterol (PROVENTIL) 2.5 mg /3 mL (0.083 %) nebulizer solution ipratropium (ATROVENT) 0.02 % nebulizer solution triamcinolone acetonide (KENALOG) 0.1 % cream nystatin (MYCOSTATIN) cream urea (CARMOL) 40 % lotn Nebulizer BIPAP Admission/Clinic Administered Medications as of 04/29/20: insulin lispro injection (rapid acting) (HumaLOG) lactated ringers infusion vancomycin iv piggyback 1 g in D5W 200 mL (VANCOCIN) acetaminophen 325-650 mg tab(s) (TYLENOL) fluticasone-vilanterol 100-25 mcg/dose 1 Inhalation (BREO ELLIPTA) furosemide 20 mg tab(s) (LASIX) sodium chloride 0.9 % (flush) 3-5 mL (BD POSIFLUSH) nicotine 21 mg/24 hr 1 Patch (NICODERM) nicotine -- REMOVE patch nicotine - verify patch busPIRone 7.5 mg tab(s) (BUSPAR) loratadine 10 mg tab(s) (CLARITIN) gabapentin 600 mg cap(s) (NEURONTIN) atenolol 50 mg tab(s) (TENORMIN) gemfibrozil 600 mg tab(s) (LOPID) pantoprazole DR 20 mg tab(s) (PROTONIX) sertraline 200 mg tab(s) (ZOLOFT) traZODone 100 mg tab(s) (DESYREL) gabapentin 900 mg cap(s) (NEURONTIN) hydrALAZINE 10 mg injection (APRESOLINE) dextrose 40 % 15 g glucagon 1 mg injection dextrose 50% in water 25 mL syringe ipratropium-albuterol 3 mL nebulizer solution (DUONEB) dexamethasone sodium phosphate 4 mg injection (DECADRON) ALPRAZolam 0.5 mg tab(s) (XANAX) Problem List: Essential hypertension [I10] Elevated CK [R74.8] Allergic rhinitis [J30.9] Asthma [J45.909] Pure hyperglyceridemia [E78.1] Internal hemorrhoids without mention of complication [K64.8] Tobacco use [Z72.0] Headache [R51] Rhinitis [J31.0] Pain in joint, lower leg [M25.569] Abdominal discomfort, epigastric [R10.13] Obesity (BMI 30.0-34.9) [E66.9] Type 2 diabetes mellitus without complication, without long-term current use of insulin (HCC) [E11.9] Depression [F32.9] Neck pain, musculoskeletal [M54.2] YARY (obstructive sleep apnea) [G47.33] DM type 2 (diabetes mellitus, type 2) (HCC) [E11.9] Anxiety [F41.9] Cauda equina compression (HCC) [G83.4] Lumbar stenosis [M48.061] Lumbar spinal stenosis [M48.061] Nicotine use disorder, F17.2 [F17.200] Allergies: Dilaudid [Hydromorphone (Bulk)] Dust Mites Paxil [Paroxetine] Penicillins Prozac [Fluoxetine Hcl] Pseudoephedrine Vicodin [Hydrocodone-Acetaminophe n] Date Verified: 04/29/20 Lab Values Lab Value Units Date High Low POTA* 4.3 mmol/L 04/29/2020 5.0 3.5 TOLU* 43.2 % 04/29/2020 46.0 36.0 Progress Notes (): Jeff Hobbs RN, RN 04/27/2020 2:50 AM Addendum Nursing Progress Note Patient Name: Garland De Santiago Patient Location: [place] [address] [address] Transfer Note: Patient transferred into room/unit PK[facility] in stable condition. Actions taken: Patient belongings with patient. Patient safety maintained. Will continue to monitor. 0250: Awaiting orders. This note was completed by: Jeff Hobbs RN Previous Version May Huizar MD 04/27/2020 5:53 AM Addendum DEPARTMENT OF HOSPITAL MEDICINE HISTORY AND PHYSICAL EXAM SERVICE DATE: 04/27/2020 SERVICE TIME: 3:38 AM Primary Care Physician: Willam Estrada MD NIGHT AND WEEKEND COVERAGE: [place] COVERAGE:Days: [phone], please page me for patient issues. Nights: [phone], please page [facility] Night Coverage pager: [phone]. Subjective CHIEF COMPLAINT: Bilateral leg pain of 4 days duration HPI: This is a 59 year old female who has PMH of HTN, HLD, T2DM, allergic rhinitis and peripheral neuropathy presented with bilateral lower limb pain of 4 days duration. The pain started on Saturday,bilateral but more on the right side ,from the the buttocks all the way down to feet, increased by walking and relived by laying down. The pain is burning in nature and 8/10 when she walks and 5/10 when she sets.it's constant and radiates to the lower and mid back and sometime wakes her up from the sleep. The pain is getting worse and it's associated with numbness from the buttocks down to feet. The numbness started 3 days ago and associated with decreases sensation, more on the right. Yesterday's morning the patient noticed some weakness in her right thigh and she also noticed that she has a weak stream but denied any urinary or fecal incontinence. She complained of perianal numbness that started today as well. The patient she has weakness in squeezing her pelvic muscle. The patient also complains of headache taht started 2 days ago, continuous, not aggravated by anything but improves with Ibuprofen. She denied any fever, chills, weight loss. The patient also denied any loss of consciousness, seizure, confusion or blurry vision. PAST MEDICAL HISTORY Diagnosis Date - Allergic rhinitis due to other allergen - Allergic rhinitis, cause unspecified 02/10/2007 - Anxiety - Anxiety disorder in conditions classified elsewhere - Asthma 02/10/2007 - Depression Psychiatrist managing (Dr. Bedolla) - Depressive disorder, not elsewhere classified - DM type 2 (diabetes mellitus, type 2) ([facility]) - Essential hypertension 05/23/2006 - Hemorrhage of gastrointestinal tract, unspecified 12/13/2011 Had bleeding hemorrhoids in 2011; normal colonoscopy - Impaired fasting glucose 05/23/2006 - Mixed hyperlipidemia 05/23/2006 - Obesity (BMI 30.0-34.9) - YARY (obstructive sleep apnea) Uses BiPAP occasionally - Other nonspecific abnormal finding 05/23/2006 CK Elevation - Snoring PAST SURGICAL HISTORY Procedure Laterality Date - ANTER COLPORRHAPHY,BLAD/VAGINA Cystocele repair - APPENDECTOMY - COLONOSCOP W/ OR W/O BRSH SPEC 12/13/2011 Colonoscopy repeat 10 years - EGD W/O OR W/BRUSH/WASH 02/09/16 EGD - L'SCOPE DX W/WO BRUSHINGS/WASHINGS Laparoscopy - LAP CHOLECYSTECT/CHOLANGIOGRA PHY 10/07/06 - LIGATE FALLOPIAN TUBE Tubal ligation - PAST SURGICAL HISTORY OF 06/22/2010 right knee arthroscopy- by Dr Dawson ([facility]) - REMOVAL ADENOIDS,PRIMARY,<12 Y/O Adenoidectomy - REMOVAL OF TONSILS,<12 Y/O Tonsillectomy - TOTAL KNEE REPLACEMENT 07/2015 right - VAGINAL HYSTERECTOMY Hysterectomy, vaginal for menorrhagia FAMILY HISTORY Problem Relation Age of Onset - Hypertension Mother history of glaucoma - Cervical Cancer Mother - Asthma Mother - Heart Father [place] x 2 - Cancer Father Lung, metastatic to bone, age 77 - other (aortic aneurysm) Father 50 - Thyroid Sister Had to have radioactive iodine ablation - Thyroid Sister Hypothyroidism - Cancer Sister Lung, LLL. Resected. - No Known Problems Son - No Known Problems Daughter Social History Tobacco Use - Smoking status: Current Every Day Smoker Packs/day: 1.00 Years: 36.00 Pack years: 36.00 Types: Cigarettes - Smokeless tobacco: Never Used - Tobacco comment: 1 ppd Substance Use Topics - Alcohol use: No - Drug use: No MEDICATIONS: Reviewed - lisinopril (ZESTRIL, PRINIVIL) 20 mg tablet, Take 1 tablet by mouth once daily., Disp: 30 tablet, Rfl: , 04/26/2020 at Unknown time - metFORMIN (GLUCOPHAGE) 500 mg tablet, Take 1 tablet by mouth twice daily., Disp: 60 tablet, Rfl: 11 - sertraline (ZOLOFT) 100 mg tablet, Take 2 tablets by mouth once daily., Disp: 60 tablet, Rfl: , 04/25/2020 at Unknown time - ibuprofen (MOTRIN) 600 mg tablet, Take 1 tablet by mouth every 6 hours as needed for Pain (take with food)., Disp: 90 tablet, Rfl: 0, Past Week at Unknown time - ALPRAZolam (XANAX) 0.5 mg tablet, Take 1 tablet by mouth at bedtime as needed for up to 60 days. Do not start before March 02, 2020., Disp: 30 tablet, Rfl: , 04/26/2020 at Unknown time - gabapentin (NEURONTIN) 300 mg capsule, Take 2 capsules by mouth once daily for 180 days. Then take three capsules at bedtime, Disp: 60 capsule, Rfl: , 04/26/2020 at Unknown time - busPIRone (BUSPAR) 15 mg tablet, Take 0.5 tablets by mouth twice daily., Disp: 30 tablet, Rfl: , 04/26/2020 at Unknown time - gemfibrozil (LOPID) 600 mg tablet, Take 1 tablet by mouth twice daily., Disp: 60 tablet, Rfl: , 04/26/2020 at Unknown time - atenolol (TENORMIN) 50 mg tablet, Take 1 tablet by mouth once daily., Disp: 30 tablet, Rfl: , 04/26/2020 at Unknown time - furosemide (LASIX) 20 mg tablet, Take 1 tablet by mouth once daily., Disp: 30 tablet, Rfl: 04/26/2020 at Unknown time - traZODone (DESYREL) 100 mg tablet, Take 1 tablet by mouth daily at bedtime., Disp: 30 tablet, Rfl: , 04/25/2020 - potassium chloride (K-TAB) 10 mEq tablet, Take 1 tablet by mouth daily with breakfast., Disp: 30 tablet, Rfl: 04/26/2020 at Unknown time - urea (CARMOL) 40 %, Apply to affected area as needed., Disp: 189.6 g, Rfl: 11 - omeprazole (PRILOSEC) 20 mg capsule, Take 1 capsule by mouth twice daily., Disp: 180 capsule, Rfl: 2 - benzonatate (TESSALON PERLE) 100 mg capsule, Take 2 capsules by mouth three times daily as needed., Disp: 42 capsule, Rfl: 0 - cetirizine (ZYRTEC) 10 mg tablet, Take 1 tablet by mouth once daily., Disp: 30 tablet, Rfl: 5 - fluticasone (FLONASE) 50 mcg/actuation nasal spray, Use 1 [place] in each nostril once daily., Disp: 1 Bottle, Rfl: 5 - albuterol HFA (VENTOLIN HFA) 90 mcg/actuation inhaler, Inhale 2 Puffs as instructed every 4 hours as needed., Disp: 18 g, Rfl: 3 - zoster vaccine, recombinant, adjuvanted, (SHINGRIX, PF,) 50 mcg/0.5 mL injection, Inject 0.5 mL intramuscularly now and repeat 2nd dose in 2-6 months, Disp: 1 Each, Rfl: 1 - aspirin, enteric coated (ECOTRIN LOW STRENGTH) 81 mg EC tablet, Take 1 tablet by mouth twice daily. (Patient not taking: Reported on 04/06/2020 ), Disp: 60 tablet, Rfl: 0 - blood sugar diagnostic (TRUE METRIX GLUCOSE TEST STRIP) test strip, Test blood sugars twice a day DX: E11. Insulin: No Use as instructed, Disp: 200 Strip, Rfl: 3 - Blood-Glucose Meter monitoring kit, Insurance covered or per patient choice. Test blood sugar twice daily plus as needed for symptoms of blood sugars being too high or low. Dx: Type 2 DM - Uncontrolled Insulin:No, Disp: 1 Each, Rfl: 0 - blood sugar diagnostic (BLOOD GLUCOSE TEST) test strip, Test blood sugar(s) 2 times daily. Dx: Type 2 DM - Uncontrolled Insulin: No, Disp: 50 Strip, Rfl: 11 - Lancets lancets, Test blood sugar(s) 2 times daily. Dx: Type 2 DM - Uncontrolled Insulin: No, Disp: 100 Each, Rfl: 11 - clotrimazole-betamethason e (LOTRISONE) cream, Apply 1 application to affected area once daily. TO AFFECTED AREA., Disp: 45 g, Rfl: 2 - fluticasone-vilanterol (BREO ELLIPTA) 100-25 mcg/dose inhaler, Inhale 1 Inhalation as instructed once daily., Disp: 1 Each, Rfl: 11 - albuterol (PROVENTIL) 2.5 mg /3 mL (0.083 %) nebulizer solution, Use 3 mL via nebulizer every 4 hours as needed for Wheezing/Shortness of Breath., Disp: 50 Vial, Rfl: 1 - ipratropium (ATROVENT) 0.02 % nebulizer solution, Use 2.5 mL via nebulizer four times daily. Unit dose pack of 50, Disp: 50 Vial, Rfl: 1 - triamcinolone acetonide (KENALOG) 0.1 % cream, Apply 1 application to affected area three times daily as needed. Apply sparingly to area for rash/itching., Disp: 30 g, Rfl: 0 - nystatin (MYCOSTATIN) cream, Apply 1 application to affected area twice daily. Apply for another week after rash resolves. Treat again as needed as directed, Disp: 30 g, Rfl: 1 - urea (CARMOL) 40 % lotn, Apply 1 application to affected area twice daily., Disp: 1 Bottle, Rfl: 5 - Nebulizer, NEBULIZER FOR HOME USE. DX: J45.42, Disp: 1 Each, Rfl: 0 - BIPAP, Initiate BiPAP @ 20/14 cm of water with heated humidification. Ti Max 1.0, Ti Min 0.3, trigger medium, cycle high. Mask (medium AirFit F10 full face mask or per patient preference) optional chin strap (if indicated) , filters, tubing, humidifier and lifetime supplies., Disp: 1 Device, Rfl: 0 ALLERGIES Allergen Reactions - Dilaudid [Hydromorp* Mental Status Change - Dust Mites - Paxil [Paroxetine] Intolerance excessive sweating - Penicillins Hives, Other: See Comments Any medication with penicillin in it. Had been given amoxicillin in 2011 and had reaction Given test dose of 2cc's on 08/17/2019 causing sever flushing along with hypotension - Prozac [Fluoxetine * Mental Status Change, Diarrhea - Pseudoephedrine Intolerance Heart racing - Vicodin [Hydrocodon* GI Upset REVIEW OF SYSTEM: GENERAL: No weight loss, malaise or fevers NECK: Negative for lumps, goiter, pain and significant neck swelling RESPIRATORY: Negative for cough, hemoptysis, wheezing, COPD, dyspnea or shortness of breath CARDIOVASCULAR: Negative for chest pain, leg swelling, hypertension, CHF or palpitations GI: No nausea, vomiting, or diarrhea : No history of dysuria, frequency or incontinence MUSCULOSKELETAL: see HPI ENDOCRINE: Negative for cold or heat intolerance, polyuria, polydipsia and goiter NEURO: No history of headaches, syncope, paralysis, seizures or tremors Objective PHYSICAL EXAM: BP 140/78 Pulse 70 Temp (Src) 98.4 (Oral) Resp 18 Ht 5' 6 (1.68m) Wt 199 lb 1.2 oz (90.3kg) SpO2 98% BMI 32.15 kg/(m2). O2 Therapy: Room Air Physical Exam Performed: GENERAL: Alert, no distress, cooperative OROPHARYNX: Lips, mucosa, and tongue normal. Teeth and gums normal. Oropharynx normal. BACK: Back symmetric, Normal curvature, ROM normal, No CVAT. LUNGS: Lungs clear to auscultation, Good diaphragmatic excursion CARDIAC: Normal S1 and S2; no rubs, murmurs, or gallops ABDOMEN: Abdomen soft, non-tender, BS normal, No masses or organomegaly EXTREMITIES: Extremities normal, no deformities, edema, clubbing or skin discoloration. Good capillary refill., No ulcers NEURO: Grossly normal cognition, motor function, and cranial nerves III-XII, Cranial nerves II-XII intact, Positive findings: decreased sensation over the lateral aspect of the right lower limb PULSES: 2+ radial, 2+ carotid Lines, Drains, and Airways None Patient does not currently have any lines, drains or airways. DATA: Diagnostic tests reviewed for today's visit: Most recent labs and imaging results. Assessment/Plan This is a 59 year old female who has PMH of HTN, HLD, YARY, T2DM, allergic rhinitis and peripheral neuropathy presented with bilateral lower limb pain of 4 days duration and symptoms concerning for cauda equina. [facility] #Cauda equina -5 days history of bilateral leg pain(more in the rt), back pain, numbness, decreased sensations and perianal numbness. -yesterday, she started to complain from subjective weakness in the rt upper thigh and weakness in squeezing pelvic muscle -started to have some weak stream but in urinary or fecal incontinence. -P/E: power is 5/5 in both limbs. Decreased sensation on the lateral right lower limb. Reflexes +2. Positive straight leg raising -Labs at [facility] : Hb 13.8 Wbc 10 Plt:352 Cr 0.66 Na 143 k 3.5 INR PTT 30 -Urine analysis shows no abnormalities -MRI spine showed : 1-multilevel degenerative changes 2- moderate central canal stenosis at L4-L5 3-right lateral recess stenosis with nerve root compression at L2-L3 -the patient was transferred her for further evaluation. Plan: -neurosurgery consult -PT/OT -Pain control with ketorolac 15 mg Q6h PRN -NPO for possible surgery tomorrow. Consider resuming Carb-controlled diet if no surgery. -PTT, INR -CBC and BMP -No need for steroids now as she doesn't have signs of inflammation #Peripheral Neuropathy -chronic,mostly idiopathic -on gabapentin 600 on the morning and 900 at the evening . -c/W home med #Anxiety and depression -On sertraline, trazodone and buspirone -c/w home med #hyperlipidemia -On Lopid 600 BID -c/w home med #Hypertenstion -On Lisinopril 20 mg daily and atenolol 50 dailly -Hold lisinopril for possible surgery -Hydralazine PRN #T2DM -on Metformin 00 BID -Hold for now -started on SSI 1 #Asthama -On albuterol and ipratropium PRN -started on Douneb PRN Medication and Non-Pharmacologic VTE Prophylaxis/Anticoagulant s 04/27/20 0345 pneumatic compression stockings ([place], [place]) 04/27/20 0345 graduated compression stockings ([place]) 04/27/20 0345 activity - mobilize patient ([place]) VTE Prophylaxis: VTE prophylaxis appropriate Disposition: To be determined Plan of care discussed with: Provider, RN, Patient SIGNATURE: Preeti Gupta PATIENT NAME: Garland De Santiago DATE: April 27, 2020 TIME: 3:38 AM PAGER/CONTACT #: [phone] etx [phone] [facility] STAFF PHYSICIAN NOTE OF PERSONAL INVOLVEMENT IN CARE I have reviewed the history and physical examination obtained and documented by the resident/Dr Preeti Gupta and I personally participated in the wilson components. I have discussed the case and management of the patient's care. The following comments revise or confirm relevant wilson components of their note. IMPRESSION: This is a 59 year old female with a PMH significant for obesity with sleep apnea, HTN,HLD, T2 DM , asthma,sciatica,anxiety and depression has presented to ER with C/o fall 6 days ago Bilateral leg pain since past 24 hours associated with numbness and problems walking. Right Leg became extremely painful is numb from lower back to foot now. Pt mainly experienced numbness over her right buttock area with inability to squeeze towards center as she does routinely with urination and defecation. She was unable to pass urine during the day and she finally urinated without overflow incontinence. Her Last BM was on 04/25/20 and was normal. Pt seen and examined. Exam was positive for hyperaesthesia of lateral aspect of right leg along L5 distribution and positive SLR readily demonstrable in RLE. Gait with limp and pain while walking along right leg in the calf area and laterally. Strength was normal and equal in both LE. Reviewed labs and imaging studies from OSH. Xray from 04/25/20 lumbar spine shows normal Lumbar lordosis with mild disc space narrowing from L1-L2 down to L3-L4 as well as retrolisthesis of 2-3 mm at each level.No fracture or compression deformity. MRI lumbar spine from 04/26/20 showed moderate central canal stenosis at L4-L5 and lateral recess stenosis at L2-L3 With nerve compression. Imp:Lumbar spinal stenosis with radiculopathy and Cauda equina compression. Plan: Bed rest, pain relief measures with tylenol, toradol, gabapentin; PT/OT and neurosurgery consults. F/U with Covid test results. Plan of care discussed with Patient CARE COORDINATION: Neurosurgery consults. SIGNATURE: May Huizar MD PAGER: [phone] DATE of SERVICE: April 27, 2020 TIME of SERVICE: 4:05 AM Previous Version Shazia Luu PT 04/27/2020 8:19 AM Signed PHYSICAL THERAPY MISSED VISIT SERVICE DATE: 04/27/2020 SERVICE TIME: 817 to 817 ROOM: [place] [address] Attempted Evaluation. Patient not seen due to (bedrest per Dr note; awaits neuroconsult;possible surgery). SIGNATURE: Shazia Luu PT PATIENT NAME: Garland De Santiago DATE: April 27, 2020 TIME: 8:19 AM Sari Knutson MD 04/27/2020 8:15 PM Signed INPATIENT PROGRESS NOTE SERVICE DATE: 04/27/2020 SERVICE TIME: 04/27/20 PRIMARY SERVICE: Hospital Medicine Subjective CHIEF COMPLAINT: Bilateral leg pain of 4 days duration ? 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 The pain started on Saturday,bilateral but more on the right side ,from the buttocks all the way down to feet, increased by walking and relived by laying down. 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 The pain is burning in nature and 8/10 when she walks and 5/10 when she sits.it's constant and radiates to the lower and mid back and sometime wakes her up from the sleep. The pain is getting worse and it's associated with numbness from the buttocks down to feet. The numbness started 3 days ago and associated with decreases sensation, more on the right. Yesterday's morning the patient noticed some weakness in her right thigh and she also noticed that she has a weak stream but denied any urinary or fecal incontinence. She complained of perianal numbness that started today as well. The patient she has weakness in squeezing her pelvic muscle. The patient also complains of headache that started 2 days ago, continuous, not aggravated by anything but improves with Ibuprofen. She denied any fever, chills, weight loss. The patient also denied any loss of consciousness, seizure, confusion or blurry vision. Also C/O numbness in finger tips bilaterally. Current Facility-Administered Medications Medication Dose Route Frequency - sodium chloride 0.9 % (flush) 3-5 mL (BD POSIFLUSH) 3-5 mL INTRAVENOUS q 12 H - acetaminophen 650 mg tab(s) (TYLENOL) 650 mg ORAL q 6 H PRN - melatonin 3 mg tab(s) 3 mg ORAL HS PRN - nicotine 21 mg/24 hr 1 Patch (NICODERM) 1 Patch TRANSDERMAL DAILY And - [START ON 04/28/2020] nicotine -- REMOVE patch OTHER DAILY And - nicotine - verify patch OTHER q 8 H - busPIRone 7.5 mg tab(s) (BUSPAR) 7.5 mg ORAL BID - loratadine 10 mg tab(s) (CLARITIN) 10 mg ORAL DAILY - gabapentin 600 mg cap(s) (NEURONTIN) 600 mg ORAL DAILY - atenolol 50 mg tab(s) (TENORMIN) 50 mg ORAL DAILY - gemfibrozil 600 mg tab(s) (LOPID) 600 mg ORAL BID - pantoprazole DR 20 mg tab(s) (PROTONIX) 20 mg ORAL BID AC (0600/1600) - sertraline 200 mg tab(s) (ZOLOFT) 200 mg ORAL DAILY - traZODone 100 mg tab(s) (DESYREL) 100 mg ORAL AT BEDTIME - gabapentin 900 mg cap(s) (NEURONTIN) 900 mg ORAL DAILY AT 9 PM - ketorolac 15 mg injection (TORADOL) 15 mg INTRAVENOUS q 6 H PRN - hydrALAZINE 10 mg injection (APRESOLINE) 10 mg INTRAVENOUS q 6 H PRN - dextrose 40 % 15 g 15 g ORAL PRN Or - glucagon 1 mg injection 1 mg INTRAMUSCULAR PRN Or - dextrose 50% in water 25 mL syringe 12.5 g INTRAVENOUS PRN - ipratropium-albuterol 3 mL nebulizer solution (DUONEB) 3 mL INHALATION q 4 H while awake - insulin lispro injection (rapid acting) (HumaLOG) SUBCUTANEOUS q 6 H Objective PHYSICAL EXAM: BP 140/78 Pulse 74 Temp (Src) 98.4 (Oral) Resp 16 Ht 5' 6 (1.68m) Wt 199 lb 1.2 oz (90.3kg) SpO2 97% BMI 32.15 kg/(m2). O2 Therapy: Room Air Physical Exam Performed GENERAL: Alert, no distress, cooperative SKIN: Skin color, texture, turgor normal. No rashes or lesions. NECK: No jugulovenous distention, Supple LUNGS: Lungs clear to auscultation, Good diaphragmatic excursion CARDIAC: Normal S1 and S2; no rubs, murmurs, or gallops ABDOMEN: Abdomen soft, non-tender, BS normal, No masses or organomegaly EXTREMITIES: Extremities normal, no deformities, edema, clubbing or skin discoloration. Good capillary refill., No ulcers. Dry skin. NEURO: Grossly normal cognition, motor function, and cranial nerves III-XII, Positive findings: sensory deficit reports generalized reduced sensation in LE bilaterally PULSES: 2+ radial DATA: Diagnostic tests reviewed for today's visit: Most recent labs and imaging results. Assessment/Plan This is a 59 year old female who has PMH of HTN, HLD, YARY, T2DM, allergic rhinitis and peripheral neuropathy presented with bilateral lower limb pain of 4 days duration and symptoms concerning for cauda equina. [facility] ? L2-L3 nerve root compression -5 days history of bilateral leg pain(more in the rt), back pain, numbness, decreased sensations and perianal numbness. -yesterday, she started to complain from subjective weakness in the rt upper thigh and weakness in squeezing pelvic muscle -started to have some weak stream but in urinary or fecal incontinence. -P/E: power is 5/5 in both limbs. Decreased sensation on the lateral right lower limb. Reflexes +2. Positive straight leg raising -Labs Hb 13.8 Wbc 10 Plt:352 Cr 0.66 Na 138 k 3.5 INR PTT 30 -Urine analysis shows no abnormalities -MRI spine showed : 1-multilevel degenerative changes 2- moderate central canal stenosis at L4-L5 3-right lateral recess stenosis with nerve root compression at L2-L3 Neurosurgery advised for L4 laminectomy with decompression of L4 5 canal stenosis with bilateral root foraminotomy ?Plan: -Pain control with ketorolac 15 mg Q6h PRN Continue as per NS Medical assessment for fitness for surgery - low risk for perioperative cardiac complications per RSRI score - incentive spirometry Peripheral Neuropathy -chronic,mostly idiopathic -on gabapentin 600 on the morning and 900 at the evening . -c/W home med ? Anxiety and depression -On sertraline, trazodone and buspirone -c/w home med ? hyperlipidemia -On Lopid 600 BID -c/w home med ? Hypertenstion -On Lisinopril 20 mg daily and atenolol 50 dailly -Hold lisinopril for possible surgery -Hydralazine PRN Echo 05/2014: - The left ventricle is normal in size. There is moderate left ventricular hypertrophy. Left ventricular systolic function is normal. EF = 65 ? 5% (visual est.) Baseline left ventricular diastolic function is normal. - The right ventricle is normal in size. Right ventricular systolic function is normal. - Mildly thickened mitral leaflets with trivial MR. - Trivial TR. RVSP 40mmHg. Mild pulmonary hypertension. - No valvular stenosis. ? #T2DM Hba1c 7.8 on Metformin 500 BID and Gemfibrozil 600mg BID Plan: Restart home meds ? Asthama -On albuterol and ipratropium PRN -started on Douneb PRN PFT 02/2019: Spirometry indicates mild obstruction. The flow volume demonstrates an obstructive pattern. There is no significant bronchodilator response. The TLC, RV and RV/TLC are normal. The diffusing capacity is mildly reduced. The presence of a reduced DLCO that normalizes when corrected for volume is consistent with a non-parenchymal disorder but does not rule out parenchymal or pulmonary vascular disease. The diffusing capacity corrected for volume is normal. ? Medication and Non-Pharmacologic VTE Prophylaxis/Anticoagulant s 04/27/20 034 pneumatic compression stockings ([place] 04/27/20 034 graduated compression stockings [place] 04/27/20 034 activity - mobilize [place]) VTE Prophylaxis: VTE prophylaxis appropriate SIGNATURE: Janelle Kaufman MD PATIENT NAME: Garland De Santiago DATE: April 27, 2020 TIME: 9:19 AM PAGER: [phone] I have seen and evaluated the patient and discussed the case with the resident physician. I have verified and updated the resident?s note to include the final assessment and plan. Sari Knutson MD Previous Version Gerri Small MD 04/27/2020 4:17 PM Addendum CONSULT: NEUROSURGERY SERVICE SERVICE DATE: 04/27/2020 SERVICE TIME: 9:25 AM REASON FOR CONSULT: Back and lower extremity pain PRIMARY CARE PHYSICIAN: Willam Estrada MD Subjective Ms. De Santiago is a 59 year old female who presents with four days of bilateral lower extremity pain, right greater than left. At baseline she has peripheral neuropathy in her feet which is chronic and for which she takes gabapentin, 600 mg in the morning and 900 mg in the evening. She reports the gabapentin has done nothing for this new lower extremity pain. She reports her pain radiates directly down the posterior leg to the foot. She reports difficulty ambulating due to pain. She denies any issues with bowel incontinence, though she states she is having a hard time bearing down to urinate, and her ability to sense when she has to go is diminished due to perianal and groin numbness. She denies major issues with the upper extremities, she states she drops things occasionally and has some mild tingling in all of her fingertips. She denies truncal paresthesias. She states she has never had problems with her back previously, and these symptoms in the back and leg are entirely new. She has not been seen for physical therapy and has not undergone any injections in the low back. FUNCTIONAL STATUS: Independent PAST MEDICAL HISTORY Diagnosis Date - Allergic rhinitis due to other allergen - Allergic rhinitis, cause unspecified 02/10/2007 - Anxiety - Anxiety disorder in conditions classified elsewhere - Asthma 02/10/2007 - Depression Psychiatrist managing (Dr. Bedolla) - Depressive disorder, not elsewhere classified - DM type 2 (diabetes mellitus, type 2) (HCC) - Essential hypertension 05/23/2006 - Hemorrhage of gastrointestinal tract, unspecified 12/13/2011 Had bleeding hemorrhoids in 2011; normal colonoscopy - Impaired fasting glucose 05/23/2006 - Mixed hyperlipidemia 05/23/2006 - Obesity (BMI 30.0-34.9) - YARY (obstructive sleep apnea) Uses BiPAP occasionally - Other nonspecific abnormal finding 05/23/2006 CK Elevation - Snoring PAST SURGICAL HISTORY Procedure Laterality Date - ANTER COLPORRHAPHY,BLAD/VAGINA Cystocele repair - APPENDECTOMY - COLONOSCOP W/ OR W/O BRSH SPEC 12/13/2011 Colonoscopy repeat 10 years - EGD W/O OR W/BRUSH/WASH 02/09/16 EGD - L'SCOPE DX W/WO BRUSHINGS/WASHINGS Laparoscopy - LAP CHOLECYSTECT/CHOLANGIOGRA PHY 10/07/06 - LIGATE FALLOPIAN TUBE Tubal ligation - PAST SURGICAL HISTORY OF 06/22/2010 right knee arthroscopy- by Dr Dawson ([facility]) - REMOVAL ADENOIDS,PRIMARY,<12 Y/O Adenoidectomy - REMOVAL OF TONSILS,<12 Y/O Tonsillectomy - TOTAL KNEE REPLACEMENT 07/2015 right - VAGINAL HYSTERECTOMY Hysterectomy, vaginal for menorrhagia FAMILY HISTORY Problem Relation Age of Onset - Hypertension Mother history of glaucoma - Cervical Cancer Mother - Asthma Mother - Heart Father [place] x 2 - Cancer Father Lung, metastatic to bone, age 77 - other (aortic aneurysm) Father 50 - Thyroid Sister Had to have radioactive iodine ablation - Thyroid Sister Hypothyroidism - Cancer Sister Lung, LLL. Resected. - No Known Problems Son - No Known Problems Daughter Social History Tobacco Use - Smoking status: Current Every Day Smoker Packs/day: 1.00 Years: 36.00 Pack years: 36.00 Types: Cigarettes - Smokeless tobacco: Never Used - Tobacco comment: 1 ppd Substance Use Topics - Alcohol use: No - Drug use: No - lisinopril (ZESTRIL, PRINIVIL) 20 mg tablet, Take 1 tablet by mouth once daily., Disp: 30 tablet, Rfl: 11, 04/26/2020 at Unknown time - metFORMIN (GLUCOPHAGE) 500 mg tablet, Take 1 tablet by mouth twice daily., Disp: 60 tablet, Rfl: 11 - sertraline (ZOLOFT) 100 mg tablet, Take 2 tablets by mouth once daily., Disp: 60 tablet, Rfl: 5, 04/25/2020 at Unknown time - ibuprofen (MOTRIN) 600 mg tablet, Take 1 tablet by mouth every 6 hours as needed for Pain (take with food)., Disp: 90 tablet, Rfl: 0, Past Week at Unknown time - ALPRAZolam (XANAX) 0.5 mg tablet, Take 1 tablet by mouth at bedtime as needed for up to 60 days. Do not start before March 02, 2020., Disp: 30 tablet, Rfl: , 04/26/2020 at Unknown time - gabapentin (NEURONTIN) 300 mg capsule, Take 2 capsules by mouth once daily for 180 days. Then take three capsules at bedtime, Disp: 60 capsule, Rfl: , 04/26/2020 at Unknown time - busPIRone (BUSPAR) 15 mg tablet, Take 0.5 tablets by mouth twice daily., Disp: 30 tablet, Rfl: 04/26/2020 at Unknown time - gemfibrozil (LOPID) 600 mg tablet, Take 1 tablet by mouth twice daily., Disp: 60 tablet, Rfl: 04/26/2020 at Unknown time - atenolol (TENORMIN) 50 mg tablet, Take 1 tablet by mouth once daily., Disp: 30 tablet, Rfl: 04/26/2020 at Unknown time - furosemide (LASIX) 20 mg tablet, Take 1 tablet by mouth once daily., Disp: 30 tablet, Rfl: 04/26/2020 at Unknown time - traZODone (DESYREL) 100 mg tablet, Take 1 tablet by mouth daily at bedtime., Disp: 30 tablet, Rfl: 04/25/2020 - potassium chloride (K-TAB) 10 mEq tablet, Take 1 tablet by mouth daily with breakfast., Disp: 30 tablet, Rfl: 04/26/2020 at Unknown time - urea (CARMOL) 40 %, Apply to affected area as needed., Disp: 189.6 g, Rfl: 11 - omeprazole (PRILOSEC) 20 mg capsule, Take 1 capsule by mouth twice daily., Disp: 180 capsule, Rfl: 2 - benzonatate (TESSALON PERLE) 100 mg capsule, Take 2 capsules by mouth three times daily as needed., Disp: 42 capsule, Rfl: 0 - cetirizine (ZYRTEC) 10 mg tablet, Take 1 tablet by mouth once daily., Disp: 30 tablet, Rfl: 5 - fluticasone (FLONASE) 50 mcg/actuation nasal spray, Use 1 [place] in each nostril once daily., Disp: 1 Bottle, Rfl: 5 - albuterol HFA (VENTOLIN HFA) 90 mcg/actuation inhaler, Inhale 2 Puffs as instructed every 4 hours as needed., Disp: 18 g, Rfl: 3 - zoster vaccine, recombinant, adjuvanted, (SHINGRIX, PF,) 50 mcg/0.5 mL injection, Inject 0.5 mL intramuscularly now and repeat 2nd dose in 2-6 months, Disp: 1 Each, Rfl: 1 - aspirin, enteric coated (ECOTRIN LOW STRENGTH) 81 mg EC tablet, Take 1 tablet by mouth twice daily. (Patient not taking: Reported on 04/06/2020 ), Disp: 60 tablet, Rfl: 0 - blood sugar diagnostic (TRUE METRIX GLUCOSE TEST STRIP) test strip, Test blood sugars twice a day DX: E11.65 Insulin: No Use as instructed, Disp: 200 Strip, Rfl: 3 - Blood-Glucose Meter monitoring kit, Insurance covered or per patient choice. Test blood sugar twice daily plus as needed for symptoms of blood sugars being too high or low. Dx: Type 2 DM - Uncontrolled E11.65 Insulin:No, Disp: 1 Each, Rfl: 0 - blood sugar diagnostic (BLOOD GLUCOSE TEST) test strip, Test blood sugar(s) 2 times daily. Dx: Type 2 DM - Uncontrolled E11.65 Insulin: No, Disp: 50 Strip, Rfl: 11 - Lancets lancets, Test blood sugar(s) 2 times daily. Dx: Type 2 DM - Uncontrolled E11.65 Insulin: No, Disp: 100 Each, Rfl: 11 - clotrimazole-betamethason e (LOTRISONE) cream, Apply 1 application to affected area once daily. TO AFFECTED AREA., Disp: 45 g, Rfl: 2 - fluticasone-vilanterol (BREO ELLIPTA) 100-25 mcg/dose inhaler, Inhale 1 Inhalation as instructed once daily., Disp: 1 Each, Rfl: 11 - albuterol (PROVENTIL) 2.5 mg /3 mL (0.083 %) nebulizer solution, Use 3 mL via nebulizer every 4 hours as needed for Wheezing/Shortness of Breath., Disp: 50 Vial, Rfl: 1 - ipratropium (ATROVENT) 0.02 % nebulizer solution, Use 2.5 mL via nebulizer four times daily. Unit dose pack of 50, Disp: 50 Vial, Rfl: 1 - triamcinolone acetonide (KENALOG) 0.1 % cream, Apply 1 application to affected area three times daily as needed. Apply sparingly to area for rash/itching., Disp: 30 g, Rfl: 0 - nystatin (MYCOSTATIN) cream, Apply 1 application to affected area twice daily. Apply for another week after rash resolves. Treat again as needed as directed, Disp: 30 g, Rfl: 1 - urea (CARMOL) 40 % lotn, Apply 1 application to affected area twice daily., Disp: 1 Bottle, Rfl: 5 - Nebulizer, NEBULIZER FOR HOME USE. DX: J45.42, Disp: 1 Each, Rfl: 0 - BIPAP, Initiate BiPAP @ 20/14 cm of water with heated humidification. Ti Max 1.0, Ti Min 0.3, trigger medium, cycle high. Mask (medium AirFit F10 full face mask or per patient preference) optional chin strap (if indicated) , filters, tubing, humidifier and lifetime supplies., Disp: 1 Device, Rfl: 0 Current Facility-Administered Medications Medication Dose Route Frequency - sodium chloride 0.9 % (flush) 3-5 mL (BD POSIFLUSH) 3-5 mL INTRAVENOUS q 12 H - acetaminophen 650 mg tab(s) (TYLENOL) 650 mg ORAL q 6 H PRN - melatonin 3 mg tab(s) 3 mg ORAL HS PRN - nicotine 21 mg/24 hr 1 Patch (NICODERM) 1 Patch TRANSDERMAL DAILY And - [START ON 04/28/2020] nicotine -- REMOVE patch OTHER DAILY And - nicotine - verify patch OTHER q 8 H - busPIRone 7.5 mg tab(s) (BUSPAR) 7.5 mg ORAL BID - loratadine 10 mg tab(s) (CLARITIN) 10 mg ORAL DAILY - gabapentin 600 mg cap(s) (NEURONTIN) 600 mg ORAL DAILY - atenolol 50 mg tab(s) (TENORMIN) 50 mg ORAL DAILY - gemfibrozil 600 mg tab(s) (LOPID) 600 mg ORAL BID - pantoprazole DR 20 mg tab(s) (PROTONIX) 20 mg ORAL BID AC (0600/1600) - sertraline 200 mg tab(s) (ZOLOFT) 200 mg ORAL DAILY - traZODone 100 mg tab(s) (DESYREL) 100 mg ORAL AT BEDTIME - gabapentin 900 mg cap(s) (NEURONTIN) 900 mg ORAL DAILY AT 9 PM - ketorolac 15 mg injection (TORADOL) 15 mg INTRAVENOUS q 6 H PRN - hydrALAZINE 10 mg injection (APRESOLINE) 10 mg INTRAVENOUS q 6 H PRN - dextrose 40 % 15 g 15 g ORAL PRN Or - glucagon 1 mg injection 1 mg INTRAMUSCULAR PRN Or - dextrose 50% in water 25 mL syringe 12.5 g INTRAVENOUS PRN - ipratropium-albuterol 3 mL nebulizer solution (DUONEB) 3 mL INHALATION q 4 H while awake - insulin lispro injection (rapid acting) (HumaLOG) SUBCUTANEOUS q 6 H Allergies As of Date: 04/26/2020 Allergen Noted Reaction DILAUDID [HYDROMORPHONE (BULK)] 11/16/2010 Mental Status Change DUST MITES 02/13/2007 PAXIL [PAROXETINE] 02/17/2019 Intolerance PENICILLINS 05/01/2005 Hives and Other: See Comments PROZAC [FLUOXETINE HCL] 05/01/2005 Mental Status Change and Diarrhea PSEUDOEPHEDRINE 09/21/2015 Intolerance VICODIN [HYDROCODONE-ACETAMINOPHE *09/07/2019 GI Upset Fully Assessed 04/06/2020 COMPLETE REVIEW OF SYSTEMS: PAIN ASSESSMENT: CURRENTLY HAVING PAIN; see HPI GENERAL: No weight loss, malaise or fevers HEENT: Negative for frequent or significant headaches, No changes in hearing or vision, no nose bleeds or other nasal problems NECK: Negative for lumps, goiter, pain and significant neck swelling RESPIRATORY: Negative for cough, hemoptysis, wheezing, COPD, dyspnea or shortness of breath CARDIOVASCULAR: Negative for chest pain, leg swelling, hypertension, CHF or palpitations GI: No nausea, vomiting, or diarrhea : difficulty voiding MUSCULOSKELETAL: back pain and bilateral leg pain, right greater than left SKIN: Negative for lesions, rash, and itching PSYCH: Negative for sleep disturbance, mood disorder and recent psychosocial stressors NEURO: No history of headaches, syncope, paralysis, seizures or tremors Objective PHYSICAL EXAM: Physical Exam Performed: GENERAL: Alert, no distress, cooperative SKIN: Skin color, texture, turgor normal. No rashes or lesions. HEAD/SINUSES: No significant findings EYES: PERRLA, EOMI NECK: No jugulovenous distention, Supple BACK: Back symmetric, Normal curvature, No CVAT. EXTREMITIES: Extremities normal, no deformities, edema, clubbing or skin discoloration. Good capillary refill., No ulcers, 5/5 motor strength in all muscle groups bilaterally NEURO: Cranial nerves II-XII intact, Antalgic gait. Diminished sensation along right lateral leg both proximal and distal Negative Clonus, Negative Cotton's, Positive SLR on the right BP 140/78 Pulse 74 Temp (Src) 98.4 (Oral) Resp 16 Ht 5' 6 (1.68m) Wt 199 lb 1.2 oz (90.3kg) SpO2 97% BMI 32.15 kg/(m2). O2 Therapy: Room Air DATA: Diagnostic tests reviewed for today's visit: Most recent labs and imaging results. MRI Lumbar - 04/26/2020 Moderate central canal stenosis at L4-5 secondary to significant facet joint and ligamentum flavum hypertrophy Impression/Recommendation s Active Problems: Ms. De Santiago is a 59 year old female who presents with a four day history of bilateral lower extremity pain, worse on the right, with associated numbness and reported perianal and groin numbness causing difficulty voiding urine. She reports these symptoms are completely new for her and she has only experienced peripheral neuropathy in her feet bilaterally previous to this. Clinically, she does not demonstrate any objective weakness on exam though does have some diminished touch sensation to the right lateral leg. Clinical imaging findings and exam findings were discussed today with Dr. Small. He will evaluate Ms. De Santiago and discuss potential treatment interventions with her, including surgical intervention. Note will be updated with Dr. Small's findings pending his evaluation. For now, continue pain control per primary team. Resolved Problems: * No resolved hospital problems. * SIGNATURE: Deirdre Naidu PA-C PATIENT NAME: Garland De Santiago DATE: April 27, 2020 TIME: 9:23 AM PAGER: [phone] Staff addendum Mrs. De Santiago is a pleasant 59-year-old female admitted with a history of bilateral lower extremity pain, worse on right side associated with the numbness. Noticed perianal and groin numbness for the past 2 days. Has hesitancy of urination. No bladder or bowel incontinence. Currently on gabapentin 600 and leg twice a day. No previous spine surgery. Known diabetic. Last A1c done on 07/02/19 is 7.8 Neurological examination showed stable gait, no motor weakness. MRI lumbar spine showed mild to moderate lumbar canal stenosis at L3 4 level. Moderate to severe lumbar canal stenosis at L4 5 level. Discussed clinical, imaging finding. I showed her images and explained in detail. Discussed treatment option for lumbar canal stenosis with neurogenic claudication, groin numbness which includes continuing conservative treatment with the gabapentin, back exercises, pain medication, outpatient L4 5 transforaminal epidural injection and the surgical intervention. Considering groin numbness and walking difficulty - surgery is the better option. Discussed in detail about L4 laminectomy with decompression of L4 5 canal stenosis with bilateral root foraminotomy surgical procedure, its advantages and risks. All her questions were answered. Mrs. De Santiago wants to proceed with surgery. 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 Last discharge within 30 days: No Advance Directive: Current Advance Directive: None Postpartum Rn Attempted to Assist with AD Completion: Yes Action: Education Provided;Patient Unwilling Health LiteracyHow often do you need to have someone help you when you read instructions, pamphlets, or other written material from your doctor or pharmacy? : 1 - Never How confident are you filling out medical forms by yourself?: 1 - Extremely If Patient scores > 3 on either question, the following interventions were put into place:: Patient did not score > 3 on either question. Baseline Mental Status Prior to this Illness what was the patient's Baseline Mental Status?: Alert AND Oriented Prior to this illness, has anyone described the patient having any of the following behaviors?: Not Applicable Relationship of the informant to the patient:: Self Functional Status: Independent Does Patient Currently Receive Any Community Services or Home Care?: None Equipment Prior to Admission: Walker;Elevated toilet seat;Bi-level Positive Airway Pressure/Continuous Positive Airway Pressure SOCIAL: Living Arrangements: Home Lives With: Friend(s) Financial Resources: DisabledPrimary Contact: Extended Emergency Contact Information Primary Emergency Contact: Bina Leigh Mobile Relation: Friend Secondary Emergency Contact: Leila Mccormick Mobile Relation: Daughter Supportive Patient Contact:: Yes Contact Resources: Family Family Name/Phone: David Mccormick [phone] Social Needs Food insecurity Worry: Patient refused Inability: Patient refused Resources Needed: No Social Needs Financial resource strain: Not very hard Social Needs Transportation needs Medical: Patient refused Non-medical: Patient refused Caregiver AssessmentCaregiver is ready, willing and able to meet the patient's needs as recommended by the inter-professional team:: No Caregiver needed Does the patient have an acute stroke diagnosis, or has the patient had a stroke during this admission?: No Patient's transition needs and plan for meeting these needs: TBD Patient's perception of need for this admission: lumbar stenosis Medication Adherance I am convinced of the importance of my prescription medication: 0 - Agree Completely I worry that my prescription medication will do more harm than good to me : 0 - Disagree Completely I feel financially burdened by my [id number] expenses for my prescription medication:: 0 - Disagree Completely Risk Score: 0 Patient is categorized as: Low risk < 2 Are you interested in bedside delivery of your medications? No Is Patient Psychosocially Complex?: No ASSESSMENT AND PLAN: Medical Needs: Medical Needs: Two or more chronic diseases;Diabetes Diabetes: (managed) Psychosocial Needs: Psychosocial Needs: Mental Health Diagnosis Mental Health Information: depression, and anxiety FREEDOM OF CHOICE EXPLAINED: [place] of Choice Given: Yes Level of Care Discussed: Home Care Financial Disclosure Provided: Yes Financial Disclosure Comments: via careport Provider List: Home Care Provider list within the patient's requested geographic area shared with the patient/family: Yes within: 10 miles of zip code: [id number] Quality and resource use metrics shared with the patient that are relevant to the patient's goals of care and treatment preferences:: Yes Metrics: Functional Status;Potentially Preventable 30-day Post Discharge Readmission Rates POTENTIAL TRANSITION PLANS Home OT/PT;Outpatient Therapy;To Be Determined CM spoke via phone for initial assessment, d/t covid result pending. Pt from home w/ friends, per pt IPTA, until starting having pain in legs, numbness and tingling. Pt is currently living with friends but planning to eventually get her own residence next year. Pt owns walker, elevated toilet seat, Bipap. Per pt not compliant with wearing bipap at home d/t mask always bothering her. Pt w/ previous knee surgery and had outpatient PT therapy. Pt agrees to homecare services if covered by insurance. Pending PT/OT recommendations. List of homecare agencies provided to pt. Currently pt NPO for possible surgery. CM to follow. SIGNATURE: Marylin Miller RN PATIENT NAME: Garland De Santiago DATE: April 27, 2020 TIME: 10:28 AM PAGER/CONTACT #: [phone] Maday Santos OT/L 04/27/2020 4:19 PM Signed OCCUPATIONAL THERAPY MISSED VISIT SERVICE DATE: 04/27/2020 SERVICE TIME: to ROOM: [place] [address] Attempted Evaluation. Patient not seen due to pending surgery. Pt s/p Neuro consult earlier this date and is deciding about surgical intervention. Per chart, pt is NPO for possible surgery. OT will follow up post-op/as appropriate. SIGNATURE: Maday Santos OT/L PATIENT NAME: Garland De Santiago DATE: April 27, 2020 TIME: 4:16 PM Divina Sheffield RN, RN 04/27/2020 6:38 PM Signed Nursing Progress Note Patient Name: Garland De Santiago Patient Location: [place] [address] Daily Note: 0730 Received report and assumed care. Resting in bed. No needs. Call light in reach. 0800 AANDOx3. Up independently. Pain in BLE and back. N/T in BLE. Decreased sensation in vinod area leading to difficulty with urinating and bowel movements. NPO for possible surgery. 1130 New order placed for IV decadron Q8. [address] Knutson. Verbal order for carb controlled diet d/t pt likely not going for a surgery today. 1300 Pt had BM. Pt asked if she could go outside for cigarette with friend present at bedside, told that she could not do that, pt agreeable but said she was sad. [address] Small. Pt requested time to discuss with family to decide whether she wants to go forward with a surgery or not. Will update Dr. Small with pt's answer. 1600 Pt states she would like to go forward with surgery. Aware that she will have to wait til Saturday. OK with plan of care. This note was completed by: HOWARD Multani RN, RN 04/27/2020 11:36 PM Signed Nursing Progress Note Patient Name: Garland De Santiago Patient Location: [place] [address] Daily Note:Pt is in the room resting.AANDOX3.Lungs are clear.Bowl sounds are normal.Pt is up independent.She is voiding normal She has n/t on BLE.Pt has scheduled and PRN pain meds. Pt is anxious. She has xanax to help with it..She is stable at this time.Call light within reach.Will continue to monitor. This note was completed by: Megha Gregorio, HOWARD Knutson MD 04/28/2020 5:57 PM Signed INPATIENT PROGRESS NOTE SERVICE DATE: 04/28/2020 SERVICE TIME: 04/28/20 PRIMARY SERVICE: Hospital Medicine Subjective CHIEF COMPLAINT: Bilateral leg pain of 4 days duration associated with perianal numbness ? 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 The pain started on Saturday,bilateral but more on the right side ,from the buttocks all the way down to feet, increased by walking and relived by laying down. 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 The numbness started 3 days ago and associated with decreases sensation, more on the right. The patient she has weakness in squeezing her pelvic muscle. The patient also complains of headache that started 2 days ago, continuous, not aggravated by anything but improves with Ibuprofen. Current Facility-Administered Medications Medication Dose Route Frequency - sodium chloride 0.9 % (flush) 3-5 mL (BD POSIFLUSH) 3-5 mL INTRAVENOUS q 12 H - nicotine 21 mg/24 hr 1 Patch (NICODERM) 1 Patch TRANSDERMAL DAILY And - nicotine -- REMOVE patch OTHER DAILY And - nicotine - verify patch OTHER q 8 H - busPIRone 7.5 mg tab(s) (BUSPAR) 7.5 mg ORAL BID - loratadine 10 mg tab(s) (CLARITIN) 10 mg ORAL DAILY - gabapentin 600 mg cap(s) (NEURONTIN) 600 mg ORAL DAILY - atenolol 50 mg tab(s) (TENORMIN) 50 mg ORAL DAILY - gemfibrozil 600 mg tab(s) (LOPID) 600 mg ORAL BID - pantoprazole DR 20 mg tab(s) (PROTONIX) 20 mg ORAL BID AC (0600/1600) - sertraline 200 mg tab(s) (ZOLOFT) 200 mg ORAL DAILY - traZODone 100 mg tab(s) (DESYREL) 100 mg ORAL AT BEDTIME - gabapentin 900 mg cap(s) (NEURONTIN) 900 mg ORAL DAILY AT 9 PM - hydrALAZINE 10 mg injection (APRESOLINE) 10 mg INTRAVENOUS q 6 H PRN - dextrose 40 % 15 g 15 g ORAL PRN Or - glucagon 1 mg injection 1 mg INTRAMUSCULAR PRN Or - dextrose 50% in water 25 mL syringe 12.5 g INTRAVENOUS PRN - ipratropium-albuterol 3 mL nebulizer solution (DUONEB) 3 mL INHALATION q 4 H while awake - dexamethasone sodium phosphate 4 mg injection (DECADRON) 4 mg INTRAVENOUS q 8 H - ALPRAZolam 0.5 mg tab(s) (XANAX) 0.5 mg ORAL HS PRN - insulin lispro injection (rapid acting) (HumaLOG) SUBCUTANEOUS w MEALS AND HS - ketorolac 15 mg injection (TORADOL) 15 mg INTRAVENOUS q 6 H PRN - acetaminophen 325-650 mg tab(s) (TYLENOL) 325-650 mg ORAL q 4 H PRN Objective PHYSICAL EXAM: BP 137/82 Pulse 77 Temp (Src) 97.9 (Oral) Resp 16 Ht 5' 6 (1.68m) Wt 198 lb 13.7 oz (90.2kg) SpO2 95% BMI 32.11 kg/(m2). O2 Therapy: Room Air Physical Exam Performed GENERAL: Alert, no distress, cooperative SKIN: Skin color, texture, turgor normal. No rashes or lesions. NECK: No jugulovenous distention, Supple LUNGS: Lungs clear to auscultation, Good diaphragmatic excursion CARDIAC: Normal S1 and S2; no rubs, murmurs, or gallops ABDOMEN: Abdomen soft, non-tender, BS normal, No masses or organomegaly EXTREMITIES: Extremities normal, no deformities, edema, clubbing or skin discoloration. Good capillary refill., No ulcers. Dry skin. NEURO: Grossly normal cognition, motor function, and cranial nerves III-XII, Positive findings: sensory deficit reports generalized reduced sensation in LE bilaterally PULSES: 2+ radial DATA: Diagnostic tests reviewed for today's visit: Most recent labs and imaging results. Assessment/Plan This is a 59 year old female who has PMH of HTN, HLD, YARY, T2DM, allergic rhinitis and peripheral neuropathy presented with bilateral lower limb pain of 4 days duration and symptoms concerning for cauda equina. [facility] Seen by Neurosurgery and is on the list for a Laminectomy tomorrow. ? L2-L3 nerve root compression History of bilateral leg pain(more in the rt), back pain, numbness, decreased sensations and perianal numbness. Subjective weakness in the rt upper thigh and weakness in squeezing pelvic muscle Weak stream but in urinary or fecal incontinence. P/E: power is 5/5 in both limbs. Decreased sensation on the lateral right lower limb. Reflexes +2. Positive straight leg raising Labs Hb 13.8 Wbc 10 Plt:352 Cr 0.66 Na 138 k 3.5 INR PTT 30 Urine analysis shows no abnormalities MRI spine showed : 1-multilevel degenerative changes 2- moderate central canal stenosis at L4-L5 3-right lateral recess stenosis with nerve root compression at L2-L3 Neurosurgery advised for L4 laminectomy with decompression of L4 5 canal stenosis with bilateral root foraminotomy Medical assessment for fitness for surgery: low risk for perioperative cardiac complications per RSRI score Plan: Pain control with ketorolac 15 mg Q6h PRN Continue as per NSGY Plan for surgery saturday incentive spirometry NPO from midnight Hold off Morning dose of Metformin and Lisinopril Peripheral Neuropathy chronic on gabapentin 600 on the morning and 900 at the evening . c/W home med ? Anxiety and depression On sertraline, trazodone and buspirone c/w home med Last night complained of anxiety and asked for Xanax Plan: Xanax PRN pre-Op ? hyperlipidemia On Lopid 600 BID c/w home med ? Hypertenstion On Lisinopril 20 mg daily and atenolol 50 dailly -Hold lisinopril for possible surgery -Hydralazine PRN Echo 05/2014: The left ventricle is normal in size. There is moderate left ventricular hypertrophy. Left ventricular systolic function is normal. EF = 65 ? 5% (visual est.) Baseline left ventricular diastolic function is normal. The right ventricle is normal in size. Right ventricular systolic function is normal. Mildly thickened mitral leaflets with trivial MR. Trivial TR. RVSP 40mmHg. Mild pulmonary hypertension. No valvular stenosis. Plan: Hold off Morning dose of Metformin and Lisinopril Pre-Op ? T2DM Hba1c 7.8 on Metformin 500 BID and Gemfibrozil 600mg BID Plan: Restart home meds for now - monitor periop period as holding Metformin am ? Asthma On albuterol and ipratropium PRN started on Douneb PRN PFT 02/2019: Spirometry indicates mild obstruction. The flow volume demonstrates an obstructive pattern. There is no significant bronchodilator response. The TLC, RV and RV/TLC are normal. The diffusing capacity is mildly reduced. The presence of a reduced DLCO that normalizes when corrected for volume is consistent with a non-parenchymal disorder but does not rule out parenchymal or pulmonary vascular disease. The diffusing capacity corrected for volume is normal. Medication and Non-Pharmacologic VTE Prophylaxis/Anticoagulant s 04/27/20 0345 pneumatic compression stockings ([place]) 04/27/20 0345 graduated compression stockings ([place], [place]) 04/27/20 0345 activity - [place]ize [place]) VTE Prophylaxis: VTE prophylaxis appropriate SIGNATURE: Janelle Kaufman MD PATIENT NAME: Garland De Santiago DATE: April 28, 2020 TIME: 9:19 AM PAGER: [phone] I have seen and evaluated the patient and discussed the case with the resident physician. I have verified and updated the resident?s note to include the final assessment and plan. Sari Knutson MD Previous Version Gerri Small MD 04/28/2020 3:55 PM Addendum PROGRESS NOTE NEUROSURGERY SERVICE DATE: 04/28/2020 SERVICE TIME: 9:25 AM Subjective INTERVAL HPI Patient seen this morning. No loss of bowel or bladder function. Continues with leg pain and numbness in the groin. Current Facility-Administered Medications Medication Dose Route Frequency - sodium chloride 0.9 % (flush) 3-5 mL (BD POSIFLUSH) 3-5 mL INTRAVENOUS q 12 H - nicotine 21 mg/24 hr 1 Patch (NICODERM) 1 Patch TRANSDERMAL DAILY And - nicotine -- REMOVE patch OTHER DAILY And - nicotine - verify patch OTHER q 8 H - busPIRone 7.5 mg tab(s) (BUSPAR) 7.5 mg ORAL BID - loratadine 10 mg tab(s) (CLARITIN) 10 mg ORAL DAILY - gabapentin 600 mg cap(s) (NEURONTIN) 600 mg ORAL DAILY - atenolol 50 mg tab(s) (TENORMIN) 50 mg ORAL DAILY - gemfibrozil 600 mg tab(s) (LOPID) 600 mg ORAL BID - pantoprazole DR 20 mg tab(s) (PROTONIX) 20 mg ORAL BID AC (0600/1600) - sertraline 200 mg tab(s) (ZOLOFT) 200 mg ORAL DAILY - traZODone 100 mg tab(s) (DESYREL) 100 mg ORAL AT BEDTIME - gabapentin 900 mg cap(s) (NEURONTIN) 900 mg ORAL DAILY AT 9 PM - hydrALAZINE 10 mg injection (APRESOLINE) 10 mg INTRAVENOUS q 6 H PRN - dextrose 40 % 15 g 15 g ORAL PRN Or - glucagon 1 mg injection 1 mg INTRAMUSCULAR PRN Or - dextrose 50% in water 25 mL syringe 12.5 g INTRAVENOUS PRN - ipratropium-albuterol 3 mL nebulizer solution (DUONEB) 3 mL INHALATION q 4 H while awake - dexamethasone sodium phosphate 4 mg injection (DECADRON) 4 mg INTRAVENOUS q 8 H - ALPRAZolam 0.5 mg tab(s) (XANAX) 0.5 mg ORAL HS PRN - insulin lispro injection (rapid acting) (HumaLOG) SUBCUTANEOUS w MEALS AND HS - ketorolac 15 mg injection (TORADOL) 15 mg INTRAVENOUS q 6 H PRN - acetaminophen 325-650 mg tab(s) (TYLENOL) 325-650 mg ORAL q 4 H PRN - metFORMIN 500 mg tab(s) (GLUCOPHAGE) 500 mg ORAL BID - lisinopril 20 mg tab(s) (ZESTRIL, PRINIVIL) 20 mg ORAL DAILY - fluticasone-vilanterol 100-25 mcg/dose 1 Inhalation (BREO ELLIPTA) 1 Inhalation INHALATION DAILY - furosemide 20 mg tab(s) (LASIX) 20 mg ORAL DAILY Objective Alert, Oriented to Person, Place, Time EOMI PERRL Face Symmetric Tongue Midline VIOLET No Drift VITAL SIGNS 24 HOUR REVIEW: Patient Vitals for the past 24 hrs: BP Temp Temp src Pulse Resp SpO2 Weight 04/28/20 0543 ? 90.2 kg (198 lb 13.7 oz) 04/28/20 0331 137/82 36.6 ?C (97.9 ?F) Oral 77 16 95 % ? 04/27/202 138/73 ? 04/27/202001 166/82 36.7 ?C (98.1 ?F) Oral 91 16 94 % ? 04/27/201936 ? ? ? 82 18 96 % ? 04/27/201928 ? ? ? 81 18 98 % ? 04/27/20 1030 120/92 36.9 ?C (98.4 ?F) Oral 72 18 98 % ? LABS: CBC, Coags, BMP, Mg, Phos Recent Labs 04/27/20 0501 WBC 8.44 HB 13.6 HCT 40.4 PLT 307 INR 1.0 APTT 24.8 NA 138 K 3.6 CHLOR 104 CO2 26 BUN 19 CREAT 0.57* GLUC 117* CA 8.9 MG 2.0 DATA: Diagnostic tests reviewed for today's visit: Most recent labs and imaging results. Assessment/Plan Active Problems: Essential hypertension POA: Yes Assessment AND Plan: per primary Obesity (BMI 30.0-34.9) POA: Yes Assessment AND Plan: Type 2 diabetes mellitus without complication, without long-term current use of insulin (HCC) POA: Yes Assessment AND Plan: per primary Cauda equina compression (HCC) POA: Yes Assessment AND Plan: Plan for OR tomorrow. NPO after midnight. All questions answered. PT/OT Lumbar spinal stenosis POA: Unknown Assessment AND Plan: as above Nicotine use disorder, F17.2 POA: Yes Assessment AND Plan: per primary Resolved Problems: * No resolved hospital problems. * Medication and Non-Pharmacologic VTE Prophylaxis/Anticoagulant s 04/27/20 034 pneumatic compression stockings ([place], [place]) 04/27/20 034 graduated compression stockings ([place]) 04/27/20 034 activity - mobilize [place] ([place], [place]) VTE Prophylaxis: VTE prophylaxis appropriate SIGNATURE: KEVIN Smith PATIENT NAME: Garland De Santiago DATE: April 28, 2020 TIME: 9:25 AM PAGER/CONTACT #: [phone] Staff addendum ? Mrs. De Santiago is a pleasant 59-year-old female admitted with a history of bilateral lower extremity pain, worse on right side associated with the numbness. Noticed perianal and groin numbness for the past 2 days. Has hesitancy of urination. No bladder or bowel incontinence. ? Currently on gabapentin 600 and leg twice a day. No previous spine surgery. Known diabetic. Last A1c done on 07/02/19 is 7.8 ? Neurological examination showed stable gait, no motor weakness. ? MRI lumbar spine showed mild to moderate lumbar canal stenosis at L3 4 level. Moderate to severe lumbar canal stenosis at L4 5 level. ? Discussed clinical, imaging finding. I showed her images and explained in detail. Discussed treatment option for lumbar canal stenosis with neurogenic claudication, groin numbness which includes continuing conservative treatment with the gabapentin, back exercises, pain medication, outpatient L4 5 transforaminal epidural injection and the surgical intervention. ? Considering groin numbness and walking difficulty - surgery is the better option. Discussed in detail about L4 laminectomy with decompression of L4 5 canal stenosis with bilateral root foraminotomy surgical procedure, its advantages and risks. All her questions were answered. ? Tentatively scheduled for surgery on 04/29/2020 at around 2 PM NPO since midnight ? Gerri Small MD Staff, Neurosurgery Previous Version Maday Santos OT/L 04/28/2020 10:08 AM Signed OCCUPATIONAL THERAPY MISSED VISIT SERVICE DATE: 04/28/2020 SERVICE TIME: 1000 to 1000 ROOM: [place] [address] Attempted Evaluation. Patient not seen due to Surgery. Spoke with RN who reported pt has agreed to surgery which is scheduled for April 29. OT will hold evaluation at this time and follow up post op when activity orders are updated and pt is appropriate to participate. SIGNATURE: Maday Santos OT/L PATIENT NAME: Garland De Santiago DATE: April 28, 2020 TIME: 10:07 AM Martha Allen, RN, RN 04/28/2020 10:57 AM Signed Nursing Progress Note Patient Name: Garland De Santiago Patient Location: Daily Note:Heplock intact.Took diet well.No n/v. Voiding clear yellow urine.Ambulated in lopez,gait steady.Moving well.Continues to have numbness and tingling in the lower legs.Surgery is scheduled for tomorrow.Denies pain. This note was completed by: Martha Allen RN Martha Allen, RN, RN 04/28/2020 6:19 PM Signed Nursing Progress Note Patient Name: Garland De Santiago Patient Location: Daily Note:Heplock intact.Took diet well.No n/v.Voiding. Up and about.Showered.Denies pain. This note was completed by: Martha Allen, RN Megha Gregorio, RN, RN 04/29/2020 6:34 AM Addendum Nursing Progress Note Patient Name: Garland De Santiago Patient Location: [place] [address] Daily Note:Pt is in the room resting.She is AANDOX3.Lungs are clear.Bowl sounds are normal.She is up independent in the room.Pt is a little anxious about the surgery tomorrow.I gave her xanax.Pt is stable will continue to monitor. When I open the med paper by mistake I broke tie pill in half and with out noticing I throw that away in the sharps container in the room.So I had to get in to the pyxie and waste the half of the pill and get an other pill and give it to the pt.Just half of it.The other half I wasted and throw it in the waste container in the med room. This note was completed by: Megha Gregorio RN Previous Version Shazia Luu, PT 04/29/2020 8:09 AM Addendum PHYSICAL THERAPY MISSED VISIT SERVICE DATE: 04/29/2020 SERVICE TIME: 805 to 805 ROOM: [place] [address] Attempted Evaluation. Patient not seen due to (surgery today) SIGNATURE: Shazia Luu PT PATIENT NAME: Garland De Santiago DATE: April 29, 2020 TIME: 8:07 AM Previous Version Janelle Kaufman MD 04/29/2020 1:05 PM Cosign Needed INPATIENT PROGRESS NOTE SERVICE DATE: 04/29/2020 SERVICE TIME: 8:32 AM PRIMARY SERVICE: Hospital Medicine Subjective CHIEF COMPLAINT: Bilateral leg pain of 4 days duration associated with perianal numbness ? 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 The pain started on Saturday,bilateral but more on the right side ,from the buttocks all the way down to feet, increased by walking and relived by laying down. 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 The numbness started 3 days ago and associated with decreases sensation, more on the right. The patient has weakness in squeezing her pelvic muscle. The patient also complains of headache that started 2 days ago, continuous, not aggravated by anything but improves with Ibuprofen. Current Facility-Administered Medications Medication Dose Route Frequency - sodium chloride 0.9 % (flush) 3-5 mL (BD POSIFLUSH) 3-5 mL INTRAVENOUS q 12 H - nicotine 21 mg/24 hr 1 Patch (NICODERM) 1 Patch TRANSDERMAL DAILY And - nicotine -- REMOVE patch OTHER DAILY And - nicotine - verify patch OTHER q 8 H - busPIRone 7.5 mg tab(s) (BUSPAR) 7.5 mg ORAL BID - loratadine 10 mg tab(s) (CLARITIN) 10 mg ORAL DAILY - gabapentin 600 mg cap(s) (NEURONTIN) 600 mg ORAL DAILY - atenolol 50 mg tab(s) (TENORMIN) 50 mg ORAL DAILY - gemfibrozil 600 mg tab(s) (LOPID) 600 mg ORAL BID - pantoprazole DR 20 mg tab(s) (PROTONIX) 20 mg ORAL BID AC (0600/1600) - sertraline 200 mg tab(s) (ZOLOFT) 200 mg ORAL DAILY - traZODone 100 mg tab(s) (DESYREL) 100 mg ORAL AT BEDTIME - gabapentin 900 mg cap(s) (NEURONTIN) 900 mg ORAL DAILY AT 9 PM - hydrALAZINE 10 mg injection (APRESOLINE) 10 mg INTRAVENOUS q 6 H PRN - dextrose 40 % 15 g 15 g ORAL PRN Or - glucagon 1 mg injection 1 mg INTRAMUSCULAR PRN Or - dextrose 50% in water 25 mL syringe 12.5 g INTRAVENOUS PRN - ipratropium-albuterol 3 mL nebulizer solution (DUONEB) 3 mL INHALATION q 4 H while awake - dexamethasone sodium phosphate 4 mg injection (DECADRON) 4 mg INTRAVENOUS q 8 H - ALPRAZolam 0.5 mg tab(s) (XANAX) 0.5 mg ORAL HS PRN - acetaminophen 325-650 mg tab(s) (TYLENOL) 325-650 mg ORAL q 4 H PRN - fluticasone-vilanterol 100-25 mcg/dose 1 Inhalation (BREO ELLIPTA) 1 Inhalation INHALATION DAILY - furosemide 20 mg tab(s) (LASIX) 20 mg ORAL DAILY - insulin lispro injection (rapid acting) (HumaLOG) SUBCUTANEOUS q 6 H Objective PHYSICAL EXAM: BP 167/96 Pulse 64 Temp (Src) 98 (Oral) Resp 16 Ht 5' 6 (1.68m) Wt 197 lb 1.6 oz (89.4kg) SpO2 97% BMI 31.83 kg/(m2). O2 Therapy: Room Air Physical Exam Performed GENERAL: Alert, no distress, cooperative SKIN: Skin color, texture, turgor normal. No rashes or lesions. NECK: No jugulovenous distention, Supple LUNGS: Lungs clear to auscultation, Good diaphragmatic excursion CARDIAC: Normal S1 and S2; no rubs, murmurs, or gallops ABDOMEN: Abdomen soft, non-tender, BS normal, No masses or organomegaly EXTREMITIES: Extremities normal, no deformities, edema, clubbing or skin discoloration. Good capillary refill., No ulcers. Dry skin. NEURO: Grossly normal cognition, motor function, and cranial nerves III-XII, Positive findings: sensory deficit reports generalized reduced sensation in LE bilaterally PULSES: 2+ radial DATA: Diagnostic tests reviewed for today's visit: Most recent labs and imaging results. Assessment/Plan This is a 59 year old female who has PMH of HTN, HLD, YARY, T2DM, allergic rhinitis and peripheral neuropathy presented with bilateral lower limb pain of 4 days duration and symptoms concerning for cauda equina. [facility] Seen by Neurosurgery, they discussed questions she had before the surgery and is on the list for a Laminectomy this afternoon. ? L2-L3 nerve root compression History of bilateral leg pain(more in the rt), back pain, numbness, decreased sensations and perianal numbness. Subjective weakness in the rt upper thigh and weakness in squeezing pelvic muscle Weak stream but in urinary or fecal incontinence. P/E: power is 5/5 in both limbs. Decreased sensation on the lateral right lower limb. Reflexes +2. Positive straight leg raising Labs Hb 13.8 Wbc 10 Plt:352 Cr 0.66 Na 138 k 3.5 INR PTT 30 Urine analysis shows no abnormalities MRI spine showed : 1-multilevel degenerative changes 2- moderate central canal stenosis at L4-L5 3-right lateral recess stenosis with nerve root compression at L2-L3 Neurosurgery advised for L4 laminectomy with decompression of L4 5 canal stenosis with bilateral root foraminotomy Medical assessment for fitness for surgery: low risk for perioperative cardiac complications per RSRI score Been NPO from midnight Held off Morning dose of Metformin and Lisinopril Plan: Pain control with ketorolac 15 mg Q6h PRN Continue as per NSGY Re-prescribe Lisinopril and Metformin post Op incentive spirometry May need HC therapies on discharge Peripheral Neuropathy chronic on gabapentin 600 on the morning and 900 at the evening . c/W home med ? Anxiety and depression On sertraline, trazodone and buspirone c/w home med [facility] for PRN Xanax at night Plan: Xanax PRN pre-Op ? hyperlipidemia On Lopid 600 BID c/w home med ? Hypertenstion On Lisinopril 20 mg daily and atenolol 50 dailly -Hold lisinopril for possible surgery -Hydralazine PRN Echo 05/2014: The left ventricle is normal in size. There is moderate left ventricular hypertrophy. Left ventricular systolic function is normal. EF = 65 ? 5% (visual est.) Baseline left ventricular diastolic function is normal. The right ventricle is normal in size. Right ventricular systolic function is normal. Mildly thickened mitral leaflets with trivial MR. Trivial TR. RVSP 40mmHg. Mild pulmonary hypertension. No valvular stenosis. Plan: Hold off Morning dose of Metformin and Lisinopril Pre-Op ? T2DM Hba1c 7.8 on Metformin 500 BID and Gemfibrozil 600mg BID Plan: Restart home meds for now Monitor blood glucose as holding Metformin this morning ? Asthma On albuterol and ipratropium PRN started on Douneb PRN PFT 02/2019: Spirometry indicates mild obstruction. The flow volume demonstrates an obstructive pattern. There is no significant bronchodilator response. The TLC, RV and RV/TLC are normal. The diffusing capacity is mildly reduced. The presence of a reduced DLCO that normalizes when corrected for volume is consistent with a non-parenchymal disorder but does not rule out parenchymal or pulmonary vascular disease. The diffusing capacity corrected for volume is normal. Plan: Incentive spirometry Medication and Non-Pharmacologic VTE Prophylaxis/Anticoagulant s 04/27/20344 pneumatic compression stockings ([place], [place]) 04/27/20344 graduated compression stockings [place]) 04/27/20344 activity - mobilize patient [place]) VTE Prophylaxis: VTE prophylaxis appropriate SIGNATURE: Janelle Kaufman MD PATIENT NAME: Garland De Santiago DATE: April 29, 2020 TIME: 9:19 AM PAGER: [phone] Martha Allen RN, RN 04/29/2020 10:02 AM Signed Nursing Progress Note Patient Name: Garland De Santiago Patient Location: [place] [address] [address] Daily Note:Heplock intact.Remains NPO except small sip of water with medications.C/o numbness/tingling in both feet.Circulation adequate to the lower extremities,toes warm and mobile.Pulses are palpable.Alert and oriented.Ambulated to bathroom without any difficulties.Neurontin/ty lenol were given.Surgery scheduled for early afternoon. This note was completed by: Martha Allen, HOWARD Small MD 04/29/2020 2:21 PM Addendum PROGRESS NOTE NEUROSURGERY SERVICE DATE: 04/29/2020 SERVICE TIME: 10:45 AM Subjective INTERVAL HPI Ms. De Santiago is sitting comfortably in a chair. She has some questions about surgery. She reports her symptoms remain unchanged but pain is controlled. Current Facility-Administered Medications Medication Dose Route Frequency - sodium chloride 0.9 % (flush) 3-5 mL (BD POSIFLUSH) 3-5 mL INTRAVENOUS q 12 H - nicotine 21 mg/24 hr 1 Patch (NICODERM) 1 Patch TRANSDERMAL DAILY And - nicotine -- REMOVE patch OTHER DAILY And - nicotine - verify patch OTHER q 8 H - busPIRone 7.5 mg tab(s) (BUSPAR) 7.5 mg ORAL BID - loratadine 10 mg tab(s) (CLARITIN) 10 mg ORAL DAILY - gabapentin 600 mg cap(s) (NEURONTIN) 600 mg ORAL DAILY - atenolol 50 mg tab(s) (TENORMIN) 50 mg ORAL DAILY - gemfibrozil 600 mg tab(s) (LOPID) 600 mg ORAL BID - pantoprazole DR 20 mg tab(s) (PROTONIX) 20 mg ORAL BID AC (0600/1600) - sertraline 200 mg tab(s) (ZOLOFT) 200 mg ORAL DAILY - traZODone 100 mg tab(s) (DESYREL) 100 mg ORAL AT BEDTIME - gabapentin 900 mg cap(s) (NEURONTIN) 900 mg ORAL DAILY AT 9 PM - hydrALAZINE 10 mg injection (APRESOLINE) 10 mg INTRAVENOUS q 6 H PRN - dextrose 40 % 15 g 15 g ORAL PRN Or - glucagon 1 mg injection 1 mg INTRAMUSCULAR PRN Or - dextrose 50% in water 25 mL syringe 12.5 g INTRAVENOUS PRN - ipratropium-albuterol 3 mL nebulizer solution (DUONEB) 3 mL INHALATION q 4 H while awake - dexamethasone sodium phosphate 4 mg injection (DECADRON) 4 mg INTRAVENOUS q 8 H - ALPRAZolam 0.5 mg tab(s) (XANAX) 0.5 mg ORAL HS PRN - acetaminophen 325-650 mg tab(s) (TYLENOL) 325-650 mg ORAL q 4 H PRN - fluticasone-vilanterol 100-25 mcg/dose 1 Inhalation (BREO ELLIPTA) 1 Inhalation INHALATION DAILY - furosemide 20 mg tab(s) (LASIX) 20 mg ORAL DAILY - insulin lispro injection (rapid acting) (HumaLOG) SUBCUTANEOUS q 6 H Objective Alert, Oriented to Person, Place, Time EOMI PERRL Face Symmetric Tongue Midline VIOLET No Drift VITAL SIGNS 24 HOUR REVIEW: Patient Vitals for the past 24 hrs: BP Temp Temp src Pulse Resp SpO2 Weight 04/29/20 0812 167/96 ? ? 64 ? 97 % ? 08/21/20 0600 ? 89.4 kg (197 lb 1.6 oz) 04/29/20 0354 160/86 36.7 ?C (98 ?F) Oral 69 16 94 % ? 04/28/20 2200 147/81 ? ? 74 16 ? ? 04/28/20 2106 173/88 36.7 ?C (98 ?F) Oral 71 16 97 % ? 04/28/20 1130 135/84 36.8 ?C (98.3 ?F) Oral 68 16 95 % ? LABS: CBC, Coags, BMP, Mg, Phos Recent Labs 04/29/20 0739 04/28/20 1203 04/27/20 0501 WBC 10.06 12.23* 8.44 HB 14.5 14.2 13.6 HCT 43.2 42.1 40.4 PLT 338 347 307 INR -- -- 1.0 APTT -- -- 24.8 NA 140 139 138 K 4.3 4.6 3.6 CHLOR 103 102 104 CO2 25 23 26 BUN 16 15 19 CREAT 0.54* 0.43* 0.57* GLUC 157* 212* 117* CA 9.6 9.7 8.9 MG -- -- 2.0 DATA: Diagnostic tests reviewed for today's visit: Most recent labs and imaging results. Assessment/Plan Active Problems: I answered Ms. De Santiago's questions and reviewed imaging studies with her. She is ready to go for surgery this afternoon. Continue NPO Resolved Problems: * No resolved hospital problems. * Medication and Non-Pharmacologic VTE Prophylaxis/Anticoagulant s 04/27/20 0345 pneumatic compression stockings ([place]) 04/27/20 0345 graduated compression stockings ([place],oh) 04/27/20 0345 activity - mobilize patient ([place]) VTE Prophylaxis: VTE prophylaxis appropriate SIGNATURE: Deirdre Naidu PA-C PATIENT NAME: Garland De Santiago DATE: April 29, 2020 TIME: 10:45 AM PAGER/CONTACT #: [phone] Staff addendum ? Mrs. De Santiago is a?pleasant 59-year-old female admitted with a history of bilateral lower extremity pain, worse on right side associated with the numbness. ?Noticed perianal and groin numbness for the past 2 days. Has hesitancy of urination. ?No bladder or bowel incontinence. ? Currently on gabapentin 600 and leg twice a day. ?No previous spine surgery. Known diabetic. ?Last A1c done on 07/02/19?is?7.8 ? Neurological examination showed stable gait, no motor weakness. ? MRI lumbar spine showed mild lumbar canal stenosis at L3 4 level. ?Moderate to severe lumbar canal stenosis at L4 5 level. ? I again discussed about the surgical procedure, its advantages and risks All her questions were answered. Consent for surgery obtained. Lab results reviewed. Operative site marked. Proceeding with L4 laminectomy with decompression of L4 5 canal stenosis with bilateral root foraminotomy Gerri Small MD Staff, Neurosurgery Previous Version Arthur Decker RN, RN 04/29/2020 11:17 AM Addendum CARE MANAGEMENT PROGRESS NOTE SERVICE DATE: 04/29/2020 SERVICE TIME: 11:05 AM LOS: 2 days Pt for surgery later today. PT and OT to see. I anticipate pt will need HC therapies. Pt offers choice of [facility] or [facility] from list provided. Referral placed. Will need HC order. [facility] [address] [place] [address] and offers a contact # of [phone]. SIGNATURE: Arthur Decker RN PATIENT NAME: Garland De Santiago DATE: April 29, 2020 TIME: 11:05 AM PAGER/CONTACT #: [phone] Previous Version Martha Allen RN, RN 04/29/2020 1:23 PM Signed Nursing Progress Note Patient Name: Garland De Santiago Patient Location: [id number] Daily Note:Heplock intact and flushes well.Remains NPO.To O.R. via bed. This note was completed by: HOWARD Tang RN, RN 04/29/2020 1:50 PM Signed PATIENT EDUCATION TOPIC: PROCEDURE / SURGERY: Pre-op Teaching: Surgical Safety Principles PATIENT NAME: Garland De Santiago PATIENT LOCATION: [facility] OR POOL/[facility] OR POOL READINESS TO LEARN COGNITIVE ABILITY: Alert and oriented MOTIVATION TO LEARN: Eager FAMILY SUPPORT: None - Unavailable/disinterested INSTRUCTION PROVIDED TO: Patient PATIENT LEARNS BEST BY: Individual Instruction FACTORS AFFECTING LEARNING: None PHYSICAL LIMITATIONS AFFECTING LEARNING: None LEARNING RESPONSE DIAGNOSIS: ADULT: Well Adult PATIENT/FAMILY RESPONSE: Information received as demonstrated by interest and questions METHOD OF INSTRUCTION: Individual instruction FOLLOW-UP PLAN: Complete - No need for follow-up INSTRUCTIONAL AIDS USED: NA SUPPLEMENTAL MATERIAL PROVIDED TO PATIENT: None REFERRAL (RECOMMENDATION): None Electronically Signed By: Derick Britt RN Progress Notes ([facility]): Collin Medina APRN.CNP 04/26/2020 4:17 PM Signed VIRTUAL VISIT PROGRESS NOTE This is a virtual visit using HIPAA compliant video platform. It required patient-provider interaction for the medical decision making as documented below. Garland De Santiago is a 59 year old female seen for ED follow up. Patient evaluated at [facility] ED less than 24 hours ago for x5 day complaint of worsening neuropathy and sciatic pain on the right following a fall. Note chronic paresthesias for which she is on gabapentin. Imaging of lumbar spine revealed: Normal lumbar lordosis. Mild disc space narrowing from L1-L2 down to L3-L4 as well as retrolisthesis of 2-4 mm at each level. The remaining disc spaces are preserved. There is mild to moderate facet hypertrophy. No visualized fracture or compression deformity. Diagnosed with Lumbar contusion and Lumbar strain. Given short term supply of [place] and instructed to follow up if symptoms did not resolve. She is presenting today with worsening symptoms. Describes severe pain of the right calf described as a muscle cramp with worsening numbness down the right leg beyond her chronic paresthesias. +slight swelling right calf. New numbness to left buttock and hip. Complains of weakness, difficulty ambulating and inability to urinate. Attempted several times without success, reports bladder feels full. Endorses inability to control pelvic muscles. Pain is exacerbated with walking. Taking [place] with temporary improvement. Reports a fall ~1.5 weeks ago. Tripped over hay bail falling backwards. Indicates she hit her head saw stars. Reports neck pain initially. Current symptoms presenting ~1 week after the fall with no new injury or falls. HISTORY REVIEWED (electronic chart updated): PAST MEDICAL HISTORY Diagnosis Date - Allergic rhinitis due to other allergen - Allergic rhinitis, cause unspecified 02/10/2007 - Anxiety - Anxiety disorder in conditions classified elsewhere - Asthma 02/10/2007 - Depression Psychiatrist managing (Dr. Bedolla) - Depressive disorder, not elsewhere classified - DM type 2 (diabetes mellitus, type 2) (HCC) - Essential hypertension 05/23/2006 - Hemorrhage of gastrointestinal tract, unspecified 12/13/2011 Had bleeding hemorrhoids in 2011; normal colonoscopy - Impaired fasting glucose 05/23/2006 - Mixed hyperlipidemia 05/23/2006 - Obesity (BMI 30.0-34.9) - YARY (obstructive sleep apnea) Uses BiPAP occasionally - Other nonspecific abnormal finding 05/23/2006 CK Elevation - Snoring PAST SURGICAL HISTORY Procedure Laterality Date - ANTER COLPORRHAPHY,BLAD/VAGINA Cystocele repair - APPENDECTOMY - COLONOSCOP W/ OR W/O BRSH SPEC 12/13/2011 Colonoscopy repeat 10 years - EGD W/O OR W/BRUSH/WASH 02/09/16 EGD - L'SCOPE DX W/WO BRUSHINGS/WASHINGS Laparoscopy - LAP CHOLECYSTECT/CHOLANGIOGRA PHY 10/07/06 - LIGATE FALLOPIAN TUBE Tubal ligation - PAST SURGICAL HISTORY OF 06/22/2010 right knee arthroscopy- by Dr Dawson ([facility]) - REMOVAL ADENOIDS,PRIMARY,<12 Y/O Adenoidectomy - REMOVAL OF TONSILS,<12 Y/O Tonsillectomy - TOTAL KNEE REPLACEMENT 07/2015 right - VAGINAL HYSTERECTOMY Hysterectomy, vaginal for menorrhagia FAMILY HISTORY Problem Relation Age of Onset - Hypertension Mother history of glaucoma - Cervical Cancer Mother - Asthma Mother - Heart Father [place] x 2 - Cancer Father Lung, metastatic to bone, age 77 - other (aortic aneurysm) Father 50 - Thyroid Sister Had to have radioactive iodine ablation - Thyroid Sister Hypothyroidism - Cancer Sister Lung, LLL. Resected. - No Known Problems Son - No Known Problems Daughter Social History Tobacco Use - Smoking status: Current Every Day Smoker Packs/day: 1.00 Years: 36.00 Pack years: 36.00 Types: Cigarettes - Smokeless tobacco: Never Used - Tobacco comment: 1 ppd Substance Use Topics - Alcohol use: No - Drug use: No Current Outpatient Medications Medication Sig - urea (CARMOL) 40 % Apply to affected area as needed. - lisinopril (ZESTRIL, PRINIVIL) 20 mg tablet Take 1 tablet by mouth once daily. - metFORMIN (GLUCOPHAGE) 500 mg tablet Take 1 tablet by mouth twice daily. - sertraline (ZOLOFT) 100 mg tablet Take 2 tablets by mouth once daily. - ibuprofen (MOTRIN) 600 mg tablet Take 1 tablet by mouth every 6 hours as needed for Pain (take with food). - ALPRAZolam (XANAX) 0.5 mg tablet Take 1 tablet by mouth at bedtime as needed for up to 60 days. Do not start before March 02, 2020. - omeprazole (PRILOSEC) 20 mg capsule Take 1 capsule by mouth twice daily. - benzonatate (TESSALON PERLE) 100 mg capsule Take 2 capsules by mouth three times daily as needed. - cetirizine (ZYRTEC) 10 mg tablet Take 1 tablet by mouth once daily. - fluticasone (FLONASE) 50 mcg/actuation nasal spray Use 1 [place] in each nostril once daily. - gabapentin (NEURONTIN) 300 mg capsule Take 2 capsules by mouth once daily for 180 days. Then take three capsules at bedtime - albuterol HFA (VENTOLIN HFA) 90 mcg/actuation inhaler Inhale 2 Puffs as instructed every 4 hours as needed. - zoster vaccine, recombinant, adjuvanted, (SHINGRIX, PF,) 50 mcg/0.5 mL injection Inject 0.5 mL intramuscularly now and repeat 2nd dose in 2-6 months - busPIRone (BUSPAR) 15 mg tablet Take 0.5 tablets by mouth twice daily. - aspirin, enteric coated (ECOTRIN LOW STRENGTH) 81 mg EC tablet Take 1 tablet by mouth twice daily. (Patient not taking: Reported on 04/06/2020 ) - gemfibrozil (LOPID) 600 mg tablet Take 1 tablet by mouth twice daily. - blood sugar diagnostic (TRUE METRIX GLUCOSE TEST STRIP) test strip Test blood sugars twice a day DX: E11.65 Insulin: No Use as instructed - Blood-Glucose Meter monitoring kit Insurance covered or per patient choice. Test blood sugar twice daily plus as needed for symptoms of blood sugars being too high or low. Dx: Type 2 DM - Uncontrolled Insulin:No - blood sugar diagnostic (BLOOD GLUCOSE TEST) test strip Test blood sugar(s) 2 times daily. Dx: Type 2 DM - Uncontrolled Insulin: No - Lancets lancets Test blood sugar(s) 2 times daily. Dx: Type 2 DM - Uncontrolled Insulin: No - atenolol (TENORMIN) 50 mg tablet Take 1 tablet by mouth once daily. - furosemide (LASIX) 20 mg tablet Take 1 tablet by mouth once daily. - traZODone (DESYREL) 100 mg tablet Take 1 tablet by mouth daily at bedtime. - clotrimazole-betamethason e (LOTRISONE) cream Apply 1 application to affected area once daily. TO AFFECTED AREA. - fluticasone-vilanterol (BREO ELLIPTA) 100-25 mcg/dose inhaler Inhale 1 Inhalation as instructed once daily. - potassium chloride (K-TAB) 10 mEq tablet Take 1 tablet by mouth daily with breakfast. - albuterol (PROVENTIL) 2.5 mg /3 mL (0.083 %) nebulizer solution Use 3 mL via nebulizer every 4 hours as needed for Wheezing/Shortness of Breath. - ipratropium (ATROVENT) 0.02 % nebulizer solution Use 2.5 mL via nebulizer four times daily. Unit dose pack of 50 - triamcinolone acetonide (KENALOG) 0.1 % cream Apply 1 application to affected area three times daily as needed. Apply sparingly to area for rash/itching. - nystatin (MYCOSTATIN) cream Apply 1 application to affected area twice daily. Apply for another week after rash resolves. Treat again as needed as directed - urea (CARMOL) 40 % lotn Apply 1 application to affected area twice daily. - Nebulizer NEBULIZER FOR HOME USE. DX: J45.42 - BIPAP Initiate BiPAP @ 20/14 cm of water with heated humidification. Ti Max 1.0, Ti Min 0.3, trigger medium, cycle high. Mask (medium AirFit F10 full face mask or per patient preference) optional chin strap (if indicated) , filters, tubing, humidifier and lifetime supplies. No current facility-administered medications for this visit. ALLERGIES Allergen Reactions - Dilaudid [Hydromorp* Mental Status Change - Dust Mites - Paxil [Paroxetine] Intolerance excessive sweating - Penicillins Hives, Other: See Comments Any medication with penicillin in it. Had been given amoxicillin in 2011 and had reaction Given test dose of 2cc's on 08/17/2019 causing sever flushing along with hypotension - Prozac [Fluoxetine * Mental Status Change, Diarrhea - Pseudoephedrine Intolerance Heart racing - Vicodin [Hydrocodon* GI Upset REVIEW OF SYSTEMS: As noted in HPI PHYSICAL EXAMINATION: VIDEO EXAM: (if completed, performed via video enabled technology) GENERAL: alert and appropriate, in no distress and well-hydrated, well nourished SKIN: no rash noted HEAD: normocephalic, no abnormality or lesion noted In depth hysical assessment deferred d/t symptoms reported. Advised ED evaluation. ASSESSMENT/PLAN: 1. Fall, sequela - ICD9: 909.4, E929.3, ICD10: W19.XXXS (primary diagnosis) 2. Lumbar pain - ICD9: 724.2, ICD10: M54.5 3. Paresthesia of bilateral legs - ICD9: 782.0, ICD10: R20.2 4. Inability to urinate - ICD9: 788.99, ICD10: R33.9 5. Weakness of both lower extremities - ICD9: 729.89, ICD10: R29.898 6. Right calf pain - ICD9: 729.5, ICD10: M79.661 Given worsening symptoms with new paresthesias and inability to void patient was instructed to return to the ED for further evaluation. Need MRI and possible US. Evaluate for urinary retention. Concern for cauda equina and need to rule out DVT given recent trauma/fall. Information sent via [facility] ED Passport system. Patient verbalized understanding and agreeable to plan. Collin Medina APRN.PARTS DEPARTMENT MANAGER Normal [facility] MAIN OR Intraop Recordon 08-02-2017 [facility] MAIN OR Intraop Record Normal [facility] (OR) Anesthesiology Consultationo n 08-02-2017 Anesthesiology Consultation Normal [facility] (OR) Anesthesiology Consultation Normal [facility] (OR) Depart Summaryon 08-02-2017 Depart Summary Normal [facility] (OR) [place] Operative Reporton 08-02-2017 [place] Operative Report [facility] Summaryon 08-02-2017 Outpatient Patient Summary Normal [facility] (OR) .Auto Diffon 07-23-2017 Basophils Auto #/vol (Bld) 0.10 10 3/mcL Normal 0.00-0.19 [facility] (OR) Comment on above: Performed By: #### B MP, GFR, CBC, ADIFF, ANEU ####[address] [place], [place] [address] Basophils/100 WBC Auto (Bld) 0.7 % Normal 0.0-2.5 [facility] (OR) Comment on above: Performed By: #### B MP, GFR, CBC, ADIFF, ANEU ####[address] [place], [place] [address] Eosinophils 0.30 10 3/mcL Normal 0.00-0.40 [facility] (OR) Comment on above: Performed By: #### B MP, GFR, CBC, ADIFF, ANEU ####[address] [place], [place] [address] Eosinophils/100 leukocytes 3.1 % Normal 0.0-7.0 [facility] (OR) Comment on above: Performed By: #### B MP, GFR, CBC, ADIFF, ANEU ####[address] [place], [place] [address] Lymphocytes 3.70 10 3/mcL Normal 0.77-3.85 [facility] (OR) Comment on above: Performed By: #### B MP, GFR, CBC, ADIFF, ANEU ####[address] [place], [place] [address] Lymphocytes/100 leukocytes 40.2 % Normal 10.0-50.0 [facility] (OR) Comment on above: Performed By: #### B MP, GFR, CBC, ADIFF, ANEU ####[address] [place], [place] [address] Monocytes 0.60 10 3/mcL Normal 0.15-1.00 [facility] (OR) Comment on above: Performed By: #### B MP, GFR, CBC, ADIFF, ANEU ####[address] [place], [place] [address] Monocytes/100 leukocytes 7.0 % Normal 1.7-13.0 [facility] (OR) Comment on above: Performed By: #### B MP, GFR, CBC, ADIFF, ANEU ####[address] [place], [place] [address] Neutrophils/100 WBC Auto (Bld) 49.0 % Normal 37.0-80.0 [facility] (OR) Comment on above: Performed By: #### B MP, GFR, CBC, ADIFF, ANEU ####[address] [place], [place] [address] .NEUABSon 07-23-2017 Neutrophils 4.50 10 3/mcL Normal 2.85-6.16 [facility] (OR) Comment on above: Performed By: #### B MP, GFR, CBC, ADIFF, ANEU ####[address] [place], [place] [address] CBCon 07-23-2017 Erythrocyte distribution width Auto Ratio (RBC) 13.9 % Normal 11.5-14.5 [facility] (OR) Comment on above: Performed By: #### B MP, GFR, CBC, ADIFF, ANEU ####[address] [place], [place] [address] Erythrocytes (RBC) 5.02 10 6/mcL Normal 4.20-5.40 [facility] (OR) Comment on above: Performed By: #### B MP, GFR, CBC, ADIFF, ANEU ####[address] [place], [place] [address] Hematocrit (HCT) 42.7 % Normal 37.0-47.0 [facility] (OR) Comment on above: Performed By: #### B MP, GFR, CBC, ADIFF, ANEU ####[address] [place], [place] [address] Hemoglobin mass conc (Bld) 14.5 G/dL Normal 12.0-16.0 [facility] (OR) Comment on above: Performed By: #### B MP, GFR, CBC, ADIFF, ANEU ####[address] [place], [place] [address] MCH 28.9 pg Normal 27.0-31.2 [facility] (OR) Comment on above: Performed By: #### B MP, GFR, CBC, ADIFF, ANEU ####[address] [place], [place] [address] MCHC mass conc (RBC) 33.9 G/dL Normal 33.0-37.0 [facility] (OR) Comment on above: Performed By: #### B MP, GFR, CBC, ADIFF, ANEU ####[address] [place], [place] [address] MCV 85.0 fL Normal 80.0-94.0 [facility] (OR) Comment on above: Performed By: #### B MP, GFR, CBC, ADIFF, ANEU ####[address] [place], [place] [address] Platelet mean volume (PMV) 8.5 fL Normal 7.4-10.4 [facility] (OR) Comment on above: Performed By: #### B MP, GFR, CBC, ADIFF, ANEU ####[address] [place], [place] [address] Platelets 280 10 3/mcL Normal 130-400 [facility] (OR) Comment on above: Performed By: #### B MP, GFR, CBC, ADIFF, ANEU ####[address] [place], [place] [address] WBC (Leukocytes) 9.20 10 3/mcL Normal 4.60-10.80 [facility] (OR) Comment on above: Performed By: #### B MP, GFR, CBC, ADIFF, ANEU ####[address] [place], [place] [address] .GFRon 07-22-2017 eGFR (non-black) 116 ml/min/1.73sqm Normal [facility] (OR) Comment on above: Result Comment: GFR Population mean for , Non- Americans Ages 20-29 = 116 mL/min/1.73 sq.m. Ages 30-39 = 107 mL/min/1.73 sq.m. Ages 40-49 = 99 mL/min/1.73 sq.m. Ages 50-59 = 93 mL/min/1.73 sq.m. Ages 60-69 = 85 mL/min/1.73 sq.m. Ages 70+ = 75 mL/min/1.73 sq.m.Chronic Kidney Disease: Less than 60 mL/min/1.73 square metersEnd Stage Renal Disease: Less than 15 mL/min/1.73 square meters Performed By: #### B MP, GFR, CBC, ADIFF, ANEU ####[address] [place], [place] [address] eGFR (non-black) mL/min/{1.73_m2} Normal [facility] (OR) Comment on above: Result Comment: GFR Population mean for , Non- Americans Ages 20-29 = 116 mL/min/1.73 sq.m. Ages 30-39 = 107 mL/min/1.73 sq.m. Ages 40-49 = 99 mL/min/1.73 sq.m. Ages 50-59 = 93 mL/min/1.73 sq.m. Ages 60-69 = 85 mL/min/1.73 sq.m. Ages 70+ = 75 mL/min/1.73 sq.m.Chronic Kidney Disease: Less than 60 mL/min/1.73 square metersEnd Stage Renal Disease: Less than 15 mL/min/1.73 square meters Performed By: #### B MP, GFR, CBC, ADIFF, ANEU ####[address] [place], [place] [address] [facility] 07-22-2017 BUN/Creatinine Ratio 27 ratio Normal 7-27 [facility] (OR) Comment on above: Performed By: #### B MP, GFR, CBC, ADIFF, ANEU ####[address] [place], [place] [address] Calcium 9.3 mg/dL Normal 8.4-10.2 [facility] (OR) Comment on above: Performed By: #### B MP, GFR, CBC, ADIFF, ANEU ####[address] [place], [place] [address] Chloride 101 mmol/L Normal 98-107 [facility] (OR) Comment on above: Performed By: #### B MP, GFR, CBC, ADIFF, ANEU ####[address] [place], [place] [address] CO2 26 mmol/L Normal 22-29 [facility] (OR) Comment on above: Performed By: #### B MP, GFR, CBC, ADIFF, ANEU ####[address] [place], [place] [address] Creatinine 0.6 mg/dL Normal 0.6-1.2 [facility] (OR) Comment on above: Performed By: #### B MP, GFR, CBC, ADIFF, ANEU ####[address] [place], [place] [address] Electrolyte Balance 12.0 mEq/L Normal [facility] (OR) Comment on above: Performed By: #### B MP, GFR, CBC, ADIFF, ANEU ####[address] [place], [place] [address] Glucose mass conc 159 mg/dL High 70-105 [facility] (OR) Comment on above: Performed By: #### B MP, GFR, CBC, ADIFF, ANEU ####[address] [place], [place] [address] Potassium molar conc 3.6 mmol/L Normal 3.5-5.1 [facility] (OR) Comment on above: Performed By: #### B MP, GFR, CBC, ADIFF, ANEU ####[address] [place], [place] [address] Sodium 139 mmol/L Normal 136-146 [facility] ([place]) Comment on above: Performed By: #### B MP, GFR, CBC, ADIFF, ANEU ####[id number] [place], [place] [address] Urea nitrogen 16.1 mg/dL Normal 7.0-18.0 [facility] ([place]) Comment on above: Performed By: #### B MP, GFR, CBC, ADIFF, ANEU ####[id number] [place], [place] [address] Vital Signs Date Time Vital Sign Value Performing Clinician Facility 03-02-2025 15:45-0400 Diastolic blood pressure 66 mm[Hg] Jonnathan Mckeon DO Work Phone: [facility] 03-02-2025 15:45-0400 Systolic blood pressure 106 mm[Hg] Jonnathan Mckeon DO Work Phone: [facility] 03-02-2025 15:35-0400 Heart rate 77 /min Jonnathan Mckeon DO Work Phone: [facility] 03-02-2025 15:35-0400 SaO2% (BldA) [Mass fraction] 97 % Jonnathan Mckeon DO Work Phone: [facility] 02-25-2025 14:55-0400 Body temperature 98.4 [degF] Martha Praisler-Wood SECTION LEADER SCREEN PRINTING.PARTS DEPARTMENT MANAGER Work Phone: [facility] 02-25-2025 14:55-0400 Diastolic blood pressure 74 mm[Hg] Martha Praisler-Wood SECTION LEADER SCREEN PRINTING.PARTS DEPARTMENT MANAGER Work Phone: [facility] 02-25-2025 14:55-0400 Heart rate 81 /min Martha Praisler-Wood SECTION LEADER SCREEN PRINTING.PARTS DEPARTMENT MANAGER Work Phone: [facility] 02-25-2025 14:55-0400 Respiratory rate 18 /min Martha Praisler-Wood SECTION LEADER SCREEN PRINTING.PARTS DEPARTMENT MANAGER Work Phone: [facility] 02-25-2025 14:55-0400 SaO2% (BldA) [Mass fraction] 97 % Martha Praisler-Wood SECTION LEADER SCREEN PRINTING.PARTS DEPARTMENT MANAGER Work Phone: [facility] 02-25-2025 14:55-0400 Systolic blood pressure 119 mm[Hg] Martha Praisler-Wood SECTION LEADER SCREEN PRINTING.PARTS DEPARTMENT MANAGER Work Phone: [facility] 02-04-2025 15:36-0400 Body height 167.[address] Willam Estrada MD Work Phone: [facility] 02-04-2025 15:36-0400 Body mass index (BMI) [Ratio] 30.4 kg/m2 Dr. Willam Estrada MD Work Phone: [facility] 02-04-2025 15:36-0400 Body weight 85.[address] Willam Estrada MD Work Phone: [facility] 01-12-2025 13:31-0400 Body mass index (BMI) [Ratio] 31.35 kg/m2 Rufus Clutter PA-C Work Phone: [facility] 01-12-2025 13:31-0400 Body temperature 97.59 [degF] Rufus Clutter PA-C Work Phone: [facility] 01-12-2025 13:31-0400 Body weight 88.1 kg Rufus Clutter PA-C Work Phone: [facility] 01-12-2025 13:31-0400 Diastolic blood pressure 88 mm[Hg] Rufus Clutter PA-C Work Phone: [facility] 01-12-2025 13:31-0400 Heart rate 73 /min Rufus Clutter PA-C Work Phone: [facility] 01-12-2025 13:31-0400 Respiratory rate 18 /min Rufus Clutter PA-C Work Phone: [facility] 01-12-2025 13:31-0400 SaO2% (BldA) [Mass fraction] 98 % Rufus Clutter PA-C Work Phone: [facility] 01-12-2025 13:31-0400 Systolic blood pressure 160 mm[Hg] Rufus Clutter PA-C Work Phone: [facility] 11-25-2024 13:03-0400 Body mass index (BMI) [Ratio] 30.83 kg/m2 Leila Janeen PA-C Work Phone: [facility] 11-25-2024 13:03-0400 Body weight 86.64 kg Leila Gillilandone PA-C Work Phone: [facility] 11-25-2024 13:03-0400 Diastolic blood pressure 86 mm[Hg] Leila Janeen PA-C Work Phone: [facility] 11-25-2024 13:03-0400 Heart rate 83 /min Leila Janeen PA-C Work Phone: [facility] 11-25-2024 13:03-0400 Respiratory rate 14 /min Leila Janeen PA-C Work Phone: [facility] 11-25-2024 13:03-0400 SaO2% (BldA) [Mass fraction] 97 % Leila Janeen PA-C Work Phone: [facility] 11-25-2024 13:03-0400 Systolic blood pressure 124 mm[Hg] Leila Janeen PA-C Work Phone: [facility] 11-24-2024 13:41-0400 Body mass index (BMI) [Ratio] 31.22 kg/m2 Indigo Queener PA-C Work Phone: [facility] 11-24-2024 13:41-0400 Body weight 87.73 kg Indigohubert Bustamanteer PA-C Work Phone: [facility] 11-24-2024 13:41-0400 Diastolic blood pressure 70 mm[Hg] Indigo Queener PA-C Work Phone: [facility] 11-24-2024 13:41-0400 Heart rate 82 /min Indigo er PA-C Work Phone: [facility] 11-24-2024 13:41-0400 SaO2% (BldA) [Mass fraction] 96 % Indigo Queener PA-C Work Phone: [facility] 11-24-2024 13:41-0400 Systolic blood pressure 109 mm[Hg] Indigo Queener PA-C Work Phone: [facility] 11-18-2024 15:52-0400 Body height 167.6 cm Willam Estrada MD Work Phone: [facility] 11-18-2024 15:52-0400 Body mass index (BMI) [Ratio] 31.21 kg/m2 Willam Estrada MD Work Phone: [facility] 11-18-2024 15:52-0400 Body temperature 97.59 [degF] Willam Estrada MD Work Phone: [facility] 11-18-2024 15:52-0400 Body weight 87.7 kg Willam Estrada MD Work Phone: [facility] 11-18-2024 15:52-0400 Diastolic blood pressure 70 mm[Hg] Willam Estrada MD Work Phone: [facility] 11-18-2024 15:52-0400 Heart rate 75 /min Willam Estrada MD Work Phone: [facility] 11-18-2024 15:52-0400 Respiratory rate 16 /min Willam Estrada MD Work Phone: [facility] 11-18-2024 15:52-0400 SaO2% (BldA) [Mass fraction] 98 % Willam Estrada MD Work Phone: [facility] 11-18-2024 15:52-0400 Systolic blood pressure 120 mm[Hg] Willam Estrada MD Work Phone: [facility] 11-16-2024 15:36-0400 Body height 167.[address] Willam Estrada MD Work Phone: [facility] 10-30-2024 16:05-0500 Body mass index (BMI) [Ratio] 31.1 kg/m2 Dr. Willam Estrada MD Work Phone: [facility] 10-30-2024 16:05-0500 Body weight 87.[address] Willam Estrada MD Work Phone: [facility] 10-30-2024 16:05-0500 Diastolic blood pressure 75 mm[Hg] Dr. Willam Estrada MD Work Phone: [facility] 10-30-2024 16:05-0500 Heart rate 88 /min Dr. Willam Estrada MD Work Phone: 6(292)988-952906 [place] [address] 10-30-2024 16:05-0500 Respiratory rate 18 /min Dr. Willam Estrada MD Work Phone: 6(914)541-561906 [place] [address] 10-30-2024 16:05-0500 SaO2% (BldA) [Mass fraction] 94 % Dr. Willam Estrada MD Work Phone: 6(655)328-993006 [place] [address] 10-30-2024 16:05-0500 Systolic blood pressure 116 mm[Hg] Dr. Willam Estrada MD Work Phone: 6(480)926-856606 [place] [address] 10-16-2024 14:55-0500 Diastolic blood pressure 82 mm[Hg] Dr. Willam Estrada MD Work Phone: 9(492)441-955106 [place] [address] 10-16-2024 14:55-0500 Heart rate 83 /min Dr. Willam Estrada MD Work Phone: 4(636)128-198206 [place] [address] 10-16-2024 14:55-0500 Respiratory rate 18 /min Dr. Willam Estrada MD Work Phone: 9(874)179-287306 [place] [address] 10-16-2024 14:55-0500 SaO2% (BldA) [Mass fraction] 91 % Dr. Willam Estrada MD Work Phone: 0(901)620-340606 [place] [address] 10-16-2024 14:55-0500 Systolic blood pressure 126 mm[Hg] Dr. Willam Estrada MD Work Phone: 7(574)477-041906 [place] [address] 08-12-2024 16:10-0500 Body mass index (BMI) [Ratio] 31.1 kg/m2 Deanna Pagan SECTION LEADER SCREEN PRINTING.PARTS DEPARTMENT MANAGER Work Phone: 0(905)076-881915 [place] [address] 08-12-2024 16:10-0500 Body temperature 96.4 [degF] Deanna Pagan SECTION LEADER SCREEN PRINTING.PARTS DEPARTMENT MANAGER Work Phone: 2(826)308-080815 [place] [address] 08-12-2024 16:10-0500 Body weight 87.4 kg Deanna Latasha SECTION LEADER SCREEN PRINTING.PARTS DEPARTMENT MANAGER Work Phone: [facility] 08-12-2024 16:10-0500 Diastolic blood pressure 81 mm[Hg] Deanna Latasha SECTION LEADER SCREEN PRINTING.PARTS DEPARTMENT MANAGER Work Phone: [facility] 08-12-2024 16:10-0500 Heart rate 89 /min Deanna Latasha SECTION LEADER SCREEN PRINTING.PARTS DEPARTMENT MANAGER Work Phone: [facility] 08-12-2024 16:10-0500 Respiratory rate 24 /min Deanna Latasha SECTION LEADER SCREEN PRINTING.PARTS DEPARTMENT MANAGER Work Phone: [facility] 08-12-2024 16:10-0500 SaO2% (BldA) [Mass fraction] 98 % Deanna Latasha SECTION LEADER SCREEN PRINTING.PARTS DEPARTMENT MANAGER Work Phone: [facility] 08-12-2024 16:10-0500 Systolic blood pressure 142 mm[Hg] Deanna Latasha SECTION LEADER SCREEN PRINTING.PARTS DEPARTMENT MANAGER Work Phone: [facility] 08-11-2024 14:44-0500 Diastolic blood pressure 74 mm[Hg] Mona Corrigan MD Work Phone: [facility] 08-11-2024 14:44-0500 Heart rate 88 /min Mona Corrigan MD Work Phone: [facility] 08-11-2024 14:44-0500 Respiratory rate 20 /min Mona Corrigan MD Work Phone: [facility] 08-11-2024 14:44-0500 SaO2% (BldA) [Mass fraction] 98 % Mona Corrigan MD Work Phone: [facility] 08-11-2024 14:44-0500 Systolic blood pressure 136 mm[Hg] Mona Corrigan MD Work Phone: [facility] 08-09-2024 19:11-0500 Body temperature 97 [degF] Dr. Willam Estrada MD Work Phone: [facility] 08-09-2024 19:11-0500 Diastolic blood pressure 90 mm[Hg] Dr. Willam Estrada MD Work Phone: 6(469)709-196006 [place] [address] 08-09-2024 19:11-0500 Heart rate 78 /min Dr. Willam Estrada MD Work Phone: 8(623)977-214506 [place] [address] 08-09-2024 19:11-0500 Respiratory rate 20 /min Dr. Willam Estrada MD Work Phone: 8(675)562-820306 [place] [address] 08-09-2024 19:11-0500 SaO2% (BldA) [Mass fraction] 98 % Dr. Willam Estrada MD Work Phone: 2(669)265-182106 [place] [address] 08-09-2024 19:11-0500 Systolic blood pressure 146 mm[Hg] Dr. Willam Estrada MD Work Phone: 4(286)913-951906 [place] [address] 08-09-2024 15:31-0500 Body mass index (BMI) [Ratio] 31.6 kg/m2 Dr. Willam Estrada MD Work Phone: 7(795)840-217706 [place] [address] 08-09-2024 15:31-0500 Body weight 88.[address] Willam Estrada MD Work Phone: 5(842)098-234806 [place] [address] 08-06-2024 00:00-0500 Body temperature 99.2 [degF] Dr. Willam Estrada MD Work Phone: 3(091)317-723106 [place] [address] 08-06-2024 00:00-0500 Diastolic blood pressure 90 mm[Hg] Dr. Willam Estrada MD Work Phone: 6(628)378-845806 [place] [address] 08-06-2024 00:00-0500 Heart rate 82 /min Dr. Willam Estrada MD Work Phone: 8(490)560-671306 [place] [address] 08-06-2024 00:00-0500 Systolic blood pressure 163 mm[Hg] Dr. Willam Estrada MD Work Phone: 5(072)779-665206 [place] [address] 08-05-2024 20:10-0500 Body mass index (BMI) [Ratio] 34.3 kg/m2 Dr. Willam Estrada MD Work Phone: 1(828)072-926006 [place] [address] 08-05-2024 20:10-0500 Body weight 90.[address] Willam Estrada MD Work Phone: 2(300)212-712806 [place] [address] 08-05-2024 10:41-0500 Body temperature 96.4 [degF] Dr. Willam Estrada MD Work Phone: 4(286)434-132006 [place] [address] 08-05-2024 10:41-0500 Diastolic blood pressure 87 mm[Hg] Dr. Willam Estrada MD Work Phone: 2(754)679-262006 [place] [address] 08-05-2024 10:41-0500 Heart rate 84 /min Dr. Willam Estrada MD Work Phone: 9(596)897-390406 [place] [address] 08-05-2024 10:41-0500 Respiratory rate 18 /min Dr. Willam Estrada MD Work Phone: 5(936)119-715106 [place] [address] 08-05-2024 10:41-0500 SaO2% (BldA) [Mass fraction] 95 % Dr. Willam Estrada MD Work Phone: 9(651)154-972689 [place] [address] 08-05-2024 10:41-0500 Systolic blood pressure 137 mm[Hg] Dr. Willam Estrada MD Work Phone: 9(415)281-597789 [place] [address] 08-05-2024 03:05-0500 Body mass index (BMI) [Ratio] 32.8 kg/m2 Dr. Willam Estrada MD Work Phone: 3(459)634-082889 [place] [address] 08-05-2024 03:05-0500 Body weight 92.[address] Willam Estrada MD Work Phone: 4(153)143-242189 [place] [address] 08-02-2024 17:31-0500 Inhaled oxygen flow rate 2 L/min Dr. Willam Estrada MD Work Phone: 7(202)054-307789 [place] [address] 08-01-2024 13:56-0500 Body mass index (BMI) [Ratio] 31.31 kg/m2 Felipe Jolly APRN.CNP Work Phone: [facility] 08-01-2024 13:56-0500 Body temperature 97.9 [degF] Felipe Pendlebury SECTION LEADER SCREEN PRINTING.PARTS DEPARTMENT MANAGER Work Phone: [facility] 08-01-2024 13:56-0500 Body weight 88 kg Felipe Pendlebury SECTION LEADER SCREEN PRINTING.PARTS DEPARTMENT MANAGER Work Phone: [facility] 08-01-2024 13:56-0500 Diastolic blood pressure 68 mm[Hg] Felipe Pendlebury SECTION LEADER SCREEN PRINTING.PARTS DEPARTMENT MANAGER Work Phone: [facility] 08-01-2024 13:56-0500 Heart rate 102 /min Felipe Pendlebury SECTION LEADER SCREEN PRINTING.PARTS DEPARTMENT MANAGER Work Phone: [facility] 08-01-2024 13:56-0500 Respiratory rate 18 /min [facility] SE[facility] LEADER SCREEN PRINTING.PARTS DEPARTMENT MANAGER Work Phone: [facility] 08-01-2024 13:56-0500 SaO2% (BldA) [Mass fraction] 97 % [facility] SECTION LEADER SCREEN PRINTING.PARTS DEPARTMENT MANAGER Work Phone: [facility] 08-01-2024 13:56-0500 Systolic blood pressure 122 mm[Hg] Felipe Pendlebury SECTION LEADER SCREEN PRINTING.PARTS DEPARTMENT MANAGER Work Phone: [facility] 07-29-2024 16:38-0500 Body mass index (BMI) [Ratio] 30.96 kg/m2 Willam Estrada MD Work Phone: [facility] 07-29-2024 16:38-0500 Body weight 87 kg Willam Estrada MD Work Phone: [facility] 07-29-2024 16:38-0500 Diastolic blood pressure 74 mm[Hg] Willam Estrada MD Work Phone: [facility] 07-29-2024 16:38-0500 Heart rate 97 /min Willam Estrada MD Work Phone: [facility] 07-29-2024 16:38-0500 Respiratory rate 16 /min Willam Estrada MD Work Phone: [facility] 07-29-2024 16:38-0500 Systolic blood pressure 108 mm[Hg] Willam Estrada MD Work Phone: [facility] 07-29-2024 13:38-0500 Body mass index (BMI) [Ratio] 30.83 kg/m2 Indigo Nichols PA-C Work Phone: [facility] 07-29-2024 13:38-0500 Body weight 86.64 kg Indigo Bustamanteer PA-C Work Phone: [facility] 07-29-2024 13:38-0500 Diastolic blood pressure 74 mm[Hg] Indigo Nichols PA-C Work Phone: [facility] 07-29-2024 13:38-0500 Heart rate 92 /min Indigo Nichols PA-C Work Phone: [facility] 07-29-2024 13:38-0500 SaO2% (BldA) [Mass fraction] 97 % Indigohubert Bustamantejabari PA-C Work Phone: [facility] 07-29-2024 13:38-0500 Systolic blood pressure 109 mm[Hg] Indigo Nichols PA-C Work Phone: [facility] 05-19-2024 19:00-0400 Diastolic blood pressure 70 mm[Hg] Willam Estrada MD Work Phone: [facility] Comment on above: using machine 05-19-2024 19:00-0400 Systolic blood pressure 110 mm[Hg] Willam Estrada MD Work Phone: [facility] Comment on above: using machine 05-19-2024 18:54-0400 Body mass index (BMI) [Ratio] 31.46 kg/m2 Willam Estrada MD Work Phone: [facility] 05-19-2024 18:54-0400 Body temperature 98.6 [degF] Willam Estrada MD Work Phone: [facility] 05-19-2024 18:54-0400 Body weight 88.4 kg Willam Estrada MD Work Phone: [facility] 05-19-2024 18:54-0400 Heart rate 82 /min Willam Estrada MD Work Phone: [facility] 05-19-2024 18:54-0400 Respiratory rate 16 /min Willam Estrada MD Work Phone: [facility] 05-19-2024 18:54-0400 SaO2% (BldA) [Mass fraction] 97 % Willam Estrada MD Work Phone: [facility] 05-07-2024 14:42-0400 Diastolic blood pressure 78 mm[Hg] Mona Corrigan MD Work Phone: [facility] 05-07-2024 14:42-0400 Heart rate 89 /min Mona Corrigan MD Work Phone: [facility] 05-07-2024 14:42-0400 Respiratory rate 14 /min Mona Corrigan MD Work Phone: [facility] 05-07-2024 14:42-0400 SaO2% (BldA) [Mass fraction] 96 % Mona Corrigan MD Work Phone: [facility] 05-07-2024 14:42-0400 Systolic blood pressure 118 mm[Hg] Mona Corrigan MD Work Phone: [facility] 04-20-2024 12:25-0400 Diastolic blood pressure 70 mm[Hg] Willam Estrada MD Work Phone: [facility] 04-20-2024 12:25-0400 Systolic blood pressure 100 mm[Hg] Willam Estrada MD Work Phone: [facility] 04-20-2024 11:15-0400 Body mass index (BMI) [Ratio] 31.49 kg/m2 Willam Estrada MD Work Phone: [facility] 04-20-2024 11:15-0400 Body temperature 97.59 [degF] Willam Estrada MD Work Phone: [facility] 04-20-2024 11:15-0400 Body weight 88.5 kg Willam Estrada MD Work Phone: [facility] 04-20-2024 11:15-0400 Heart rate 91 /min Willam Estrada MD Work Phone: [facility] 04-20-2024 11:15-0400 Respiratory rate 18 /min Willam Estrada MD Work Phone: [facility] 04-20-2024 11:15-0400 SaO2% (BldA) [Mass fraction] 98 % Willam Estrada MD Work Phone: [facility] 03-30-2024 14:49-0400 Diastolic blood pressure 60 mm[Hg] Willam Estrada MD Work Phone: [facility] 03-30-2024 14:49-0400 Systolic blood pressure 92 mm[Hg] Willam sEtrada MD Work Phone: [facility] 03-30-2024 14:42-0400 Body mass index (BMI) [Ratio] 31.04 kg/m2 Willam Estrada MD Work Phone: [facility] 03-30-2024 14:42-0400 Body temperature 97.39 [degF] Willam Estrada MD Work Phone: [facility] 03-30-2024 14:42-0400 Body weight 87.23 kg Willam Estrada MD Work Phone: [facility] 03-30-2024 14:42-0400 Heart rate 86 /min Willam Estrada MD Work Phone: [facility] 03-30-2024 14:42-0400 Respiratory rate 18 /min Willam Estrada MD Work Phone: [facility] 03-30-2024 14:42-0400 SaO2% (BldA) [Mass fraction] 98 % Willam Estrada MD Work Phone: [facility] 03-20-2024 15:54-0400 Body mass index (BMI) [Ratio] 30.96 kg/m2 Deena Ivey APRN.CNP Work Phone: [facility] 03-20-2024 15:54-0400 Body temperature 98.29 [degF] Deena Ivey SECTION LEADER SCREEN PRINTING.PARTS DEPARTMENT MANAGER Work Phone: [facility] 03-20-2024 15:54-0400 Body weight 87 kg Deena Ivey SECTION LEADER SCREEN PRINTING.PARTS DEPARTMENT MANAGER Work Phone: [facility] 03-20-2024 15:54-0400 Diastolic blood pressure 80 mm[Hg] Deena Ivey SECTION LEADER SCREEN PRINTING.PARTS DEPARTMENT MANAGER Work Phone: [facility] 03-20-2024 15:54-0400 Heart rate 108 /min Deena Ivey SECTION LEADER SCREEN PRINTING.PARTS DEPARTMENT MANAGER Work Phone: [facility] 03-20-2024 15:54-0400 Respiratory rate 18 /min Deena Ivey SECTION LEADER SCREEN PRINTING.PARTS DEPARTMENT MANAGER Work Phone: [facility] 03-20-2024 15:54-0400 SaO2% (BldA) [Mass fraction] 97 % Deena Ivey SECTION LEADER SCREEN PRINTING.PARTS DEPARTMENT MANAGER Work Phone: [facility] 03-20-2024 15:54-0400 Systolic blood pressure 138 mm[Hg] Deena Ivey SECTION LEADER SCREEN PRINTING.PARTS DEPARTMENT MANAGER Work Phone: [facility] 03-04-2024 14:31-0400 Body mass index (BMI) [Ratio] 31.24 kg/m2 Felipe Jolly SECTION LEADER SCREEN PRINTING.PARTS DEPARTMENT MANAGER Work Phone: [facility] 03-04-2024 14:31-0400 Body temperature 97.9 [degF] Felipe Jolly SECTION LEADER SCREEN PRINTING.PARTS DEPARTMENT MANAGER Work Phone: [facility] 03-04-2024 14:31-0400 Body weight 87.8 kg Felipe Jolly SECTION LEADER SCREEN PRINTING.PARTS DEPARTMENT MANAGER Work Phone: [facility] 03-04-2024 14:31-0400 Diastolic blood pressure 82 mm[Hg] Felipe Jolly SECTION LEADER SCREEN PRINTING.PARTS DEPARTMENT MANAGER Work Phone: [facility] 03-04-2024 14:31-0400 Heart rate 103 /min Felipe Jolly SECTION LEADER SCREEN PRINTING.PARTS DEPARTMENT MANAGER Work Phone: [facility] 03-04-2024 14:31-0400 Respiratory rate 18 /min Felipe Menjivarbrittany SECTION LEADER SCREEN PRINTING.PARTS DEPARTMENT MANAGER Work Phone: [facility] 03-04-2024 14:31-0400 SaO2% (BldA) [Mass fraction] 97 % Felipe Jolly SECTION LEADER SCREEN PRINTING.PARTS DEPARTMENT MANAGER Work Phone: [facility] 03-04-2024 14:31-0400 Systolic blood pressure 138 mm[Hg] Felipetania Menjivarbrittany SECTION LEADER SCREEN PRINTING.PARTS DEPARTMENT MANAGER Work Phone: [facility] 02-18-2024 15:08-0400 Body mass index (BMI) [Ratio] 31.8 kg/m2 Allegra Jamaica SECTION LEADER SCREEN PRINTING.PARTS DEPARTMENT MANAGER Work Phone: [facility] 02-18-2024 15:08-0400 Body weight 89.36 kg Allegra Jamaica SECTION LEADER SCREEN PRINTING.PARTS DEPARTMENT MANAGER Work Phone: [facility] 02-18-2024 15:08-0400 Diastolic blood pressure 74 mm[Hg] Allegra Jamaica SECTION LEADER SCREEN PRINTING.PARTS DEPARTMENT MANAGER Work Phone: [facility] 02-18-2024 15:08-0400 Heart rate 75 /min Allegra Jamaica SECTION LEADER SCREEN PRINTING.PARTS DEPARTMENT MANAGER Work Phone: [facility] 02-18-2024 15:08-0400 SaO2% (BldA) [Mass fraction] 98 % Allegra Jamaica SECTION LEADER SCREEN PRINTING.PARTS DEPARTMENT MANAGER Work Phone: [facility] 02-18-2024 15:08-0400 Systolic blood pressure 140 mm[Hg] Allegra Jamaica SECTION LEADER SCREEN PRINTING.PARTS DEPARTMENT MANAGER Work Phone: [facility] 11-28-2023 10:35-0400 Body temperature 97.9 [degF] Dr. Willam Estrada Work Phone: [facility] 11-28-2023 10:35-0400 Diastolic blood pressure 57 mm[Hg] Dr. Willam Estrada Work Phone: [facility] 11-28-2023 10:35-0400 Heart rate 77 /min Dr. Willam Estrada Work Phone: [facility] 11-28-2023 10:35-0400 Respiratory rate 16 /min Dr. Willam Estrada Work Phone: [facility] 11-28-2023 10:35-0400 SaO2% (BldA) [Mass fraction] 95 % Dr. Willam Estrada Work Phone: [facility] 11-28-2023 10:35-0400 Systolic blood pressure 86 mm[Hg] Dr. Willam Estrada Work Phone: [facility] 11-28-2023 08:31-0400 Body height 167.[address] Willam Estrada Work Phone: [facility] 11-28-2023 08:31-0400 Body mass index (BMI) [Ratio] 31.4 kg/m2 Dr. Willam Estrada Work Phone: [facility] 11-28-2023 08:31-0400 Body weight 88.[address] Willam Estrada Work Phone: [facility] 11-19-2023 16:57-0400 Body height 167.6 cm Willam Estrada MD Work Phone: [facility] 11-19-2023 16:57-0400 Body temperature 97.7 [degF] Willam Estrada MD Work Phone: [facility] 11-19-2023 16:57-0400 Body weight 89.81 kg Willam Estrada MD Work Phone: [facility] 11-19-2023 16:57-0400 Diastolic blood pressure 60 mm[Hg] Willam Estrada MD Work Phone: [facility] 11-19-2023 16:57-0400 Heart rate 78 /min Willam Estrada MD Work Phone: [facility] 11-19-2023 16:57-0400 Respiratory rate 14 /min Willam Estrada MD Work Phone: [facility] 11-19-2023 16:57-0400 SaO2% (BldA) [Mass fraction] 98 % Willam Estrada MD Work Phone: [facility] 11-19-2023 16:57-0400 Systolic blood pressure 112 mm[Hg] Willam Estrada MD Work Phone: [facility] 11-11-2023 11:01-0500 Diastolic blood pressure 78 mm[Hg] Justyna Rowe SECTION LEADER [employer].PARTS DEPARTMENT MANAGER Work Phone: [facility] 11-11-2023 11:01-0500 Heart rate 79 /min Justyna Rowe SECTION LEADER [employer]CRE[employer] PR[employer].PARTS DEPARTMENT MANAGER Work Phone: [facility] 11-11-2023 11:01-0500 Respiratory rate 16 /min Justyna Rowe SECTION LEADER SCRE[employer] PR[employer]ING.PARTS DEPARTMENT MANAGER Work Phone: [facility] 11-11-2023 11:01-0500 SaO2% (BldA) [Mass fraction] 96 % Justyna Rowe SECTION LEADER SCREEN PRINTING.PARTS DEPARTMENT MANAGER Work Phone: [facility] 11-11-2023 11:01-0500 Systolic blood pressure 132 mm[Hg] Justyna Rowe SECTION LEADER SCREEN PRINTING.PARTS DEPARTMENT MANAGER Work Phone: [facility] 11-11-2023 11:00-0500 Body weight 90.72 kg Pul Wstr Work Phone: [facility] 11-05-2023 14:43-0500 Body height 167.6 cm Mona Corrigan MD Work Phone: [facility] 11-05-2023 14:43-0500 Body temperature 97.59 [degF] Mona Corrigan MD Work Phone: [facility] 11-05-2023 14:43-0500 Body weight 90.54 kg Mona Corrigan MD Work Phone: [facility] 11-05-2023 14:43-0500 Diastolic blood pressure 88 mm[Hg] Mona Corrigan MD Work Phone: [facility] 11-05-2023 14:43-0500 Heart rate 84 /min Mona Corrigan MD Work Phone: [facility] 11-05-2023 14:43-0500 SaO2% (BldA) [Mass fraction] 97 % Mona Corrigan MD Work Phone: [facility] 11-05-2023 14:43-0500 Systolic blood pressure 134 mm[Hg] Mona Corrigan MD Work Phone: 4(853)967-257615 [place] [address] 09-20-2023 19:53-0500 Diastolic blood pressure 74 mm[Hg] Dr. Willam Estrada Work Phone: 3(301)267-060789 [place] [address] 09-20-2023 19:53-0500 Heart rate 81 /min Dr. Willam Estrada Work Phone: 9(788)865-689206 [place] [address] 09-20-2023 19:53-0500 Respiratory rate 16 /min Dr. Willam Estrada Work Phone: 0(250)323-629706 [place] [address] 09-20-2023 19:53-0500 SaO2% (BldA) [Mass fraction] 97 % Dr. Willam Estrada Work Phone: 6(510)365-878289 [place] [address] 09-20-2023 19:53-0500 Systolic blood pressure 162 mm[Hg] Dr. Willam Estrada Work Phone: 1(445)061-381789 [place] [address] 09-20-2023 17:08-0500 Body temperature 96.9 [degF] Dr. Willam Estrada Work Phone: 3(749)637-327806 [place] [address] 09-20-2023 17:05-0500 Body height 167.[address] Willam Estrada Work Phone: 5(920)263-705106 [place] [address] 09-20-2023 17:05-0500 Body mass index (BMI) [Ratio] 32.5 kg/m2 Dr. Willam Estrada Work Phone: 7(546)578-953106 [place] [address] 09-20-2023 17:05-0500 Body weight 91.[address] Willam Estrada Work Phone: [facility] 07-23-2023 15:53-0500 Diastolic blood pressure 84 mm[Hg] Willam Estrada MD Work Phone: [facility] 07-23-2023 15:53-0500 Systolic blood pressure 132 mm[Hg] Willam Estrada MD Work Phone: [facility] 07-23-2023 15:13-0500 Body temperature 98.8 [degF] Willam Estrada MD Work Phone: [facility] 07-23-2023 15:13-0500 Body weight 90.72 kg Willam Estrada MD Work Phone: [facility] 07-23-2023 15:13-0500 Heart rate 70 /min Willam Estrada MD Work Phone: [facility] 07-23-2023 15:13-0500 Respiratory rate 18 /min Willam Estrada MD Work Phone: [facility] 07-23-2023 15:13-0500 SaO2% (BldA) [Mass fraction] 98 % Willam Estrada MD Work Phone: [facility] 07-01-2023 08:45-0400 Body temperature 97.3 [degF] Dr. Willam Estrada Work Phone: [facility] 07-01-2023 08:45-0400 Diastolic blood pressure 57 mm[Hg] Dr. Willam Estrada Work Phone: [facility] 07-01-2023 08:45-0400 Heart rate 68 /min Dr. Willam Estrada Work Phone: [facility] 07-01-2023 08:45-0400 Respiratory rate 18 /min Dr. Willam Estrada Work Phone: [facility] 07-01-2023 08:45-0400 SaO2% (BldA) [Mass fraction] 96 % Dr. Willam Estrada Work Phone: 4(762)981-062706 [place] [address] 07-01-2023 08:45-0400 Systolic blood pressure 100 mm[Hg] Dr. Willam Estrada Work Phone: 5(091)254-933506 [place] [address] 07-01-2023 08:19-0400 Inhaled oxygen flow rate 4 L/min Dr. Willam Estrada Work Phone: 7(690)101-292606 [place] [address] 07-01-2023 07:29-0400 Body height 167.[address] Willam Estrada Work Phone: 2(231)518-732106 [place] [address] 07-01-2023 07:29-0400 Body mass index (BMI) [Ratio] 32 kg/m2 Dr. Willam Estrada Work Phone: 9(728)580-586606 [place] [address] 07-01-2023 07:29-0400 Body weight [address] Willam Estrada Work Phone: 3(024)395-355206 [place] [address] 06-28-2023 00:27-0400 Diastolic blood pressure 76 mm[Hg] Dr. Willam Estrada Work Phone: 3(957)134-407706 [place] [address] 06-28-2023 00:27-0400 Heart rate 80 /min Dr. Willam Estrada Work Phone: 6(419)637-514706 [place] [address] 06-28-2023 00:27-0400 Respiratory rate 20 /min Dr. Willam Estrada Work Phone: 1(924)365-314506 [place] [address] 06-28-2023 00:27-0400 SaO2% (BldA) [Mass fraction] 93 % Dr. Willam Estrada Work Phone: 5(648)297-418106 [place] [address] 06-28-2023 00:27-0400 Systolic blood pressure 142 mm[Hg] Dr. Willam Estrada Work Phone: 6(258)928-772906 [place] [address] 06-27-2023 23:19-0400 Body temperature 97.5 [degF] Dr. Willam Estrada Work Phone: 5(137)835-686906 [place] [address] 06-27-2023 22:14-0400 Body height 167.[address] Willam Estrada Work Phone: [facility] 06-27-2023 22:14-0400 Body mass index (BMI) [Ratio] 32.7 kg/m2 Dr. Willam Estrada Work Phone: [facility] 06-27-2023 22:14-0400 Body weight 91.[address] Willam Estrada Work Phone: [facility] 05-31-2023 14:03-0400 Body weight 90.27 kg Allegra Jamaica SECTION LEADER [employer]CRE[employer]ING.PARTS DEPARTMENT MANAGER Work Phone: [facility] 05-31-2023 14:03-0400 Diastolic blood pressure 60 mm[Hg] Allegra Jamaica SECTION LEADER [employer]CREEN PRINTING.PARTS DEPARTMENT MANAGER Work Phone: [facility] 05-31-2023 14:03-0400 Heart rate 64 /min Allegra Jamaica SECTION LEADER SCRE[employer] PR[employer]ING.PARTS DEPARTMENT MANAGER Work Phone: [facility] 05-31-2023 14:03-0400 SaO2% (BldA) [Mass fraction] 97 % Allegra Jamaica SECTION LEADER SCRE[employer] PR[employer]ING.PARTS DEPARTMENT MANAGER Work Phone: [facility] 05-31-2023 14:03-0400 Systolic blood pressure 100 mm[Hg] Allegra Jamaica SECTION LEADER SCREEN PR[employer]ING.PARTS DEPARTMENT MANAGER Work Phone: [facility] 05-30-2023 14:18-0400 Body height 167.[address] Willam Estrada Work Phone: [facility] 05-30-2023 14:18-0400 Body mass index (BMI) [Ratio] 32.1 kg/m2 Dr. Willam Estrada Work Phone: [facility] 05-30-2023 14:18-0400 Body temperature 98 [degF] Dr. Willam Estrada Work Phone: [facility] 05-30-2023 14:18-0400 Body weight 90.[address] Willam Estrada Work Phone: [facility] 05-30-2023 14:18-0400 Diastolic blood pressure 86 mm[Hg] Dr. Willam Estrada Work Phone: [facility] 05-30-2023 14:18-0400 Heart rate 76 /min Dr. Willam Estrada Work Phone: [facility] 05-30-2023 14:18-0400 Respiratory rate 14 /min Dr. Willam Estrada Work Phone: [facility] 05-30-2023 14:18-0400 SaO2% (BldA) [Mass fraction] 98 % Dr. Willam Estrada Work Phone: [facility] 05-30-2023 14:18-0400 Systolic blood pressure 137 mm[Hg] Dr. Willam Estrada Work Phone: [facility] 05-28-2023 18:20-0400 Body temperature 97.7 [degF] Deena Ivey SECTION LEADER SCREEN PRINTING.PARTS DEPARTMENT MANAGER Work Phone: [facility] 05-28-2023 18:20-0400 Body weight 90.54 kg Deena Ivey SECTION LEADER SCREEN PRINTING.PARTS DEPARTMENT MANAGER Work Phone: [facility] 05-28-2023 18:20-0400 Diastolic blood pressure 88 mm[Hg] Deena Ivey SECTION LEADER SCREEN PRINTING.PARTS DEPARTMENT MANAGER Work Phone: [facility] 05-28-2023 18:20-0400 Heart rate 64 /min Deena Ivey SECTION LEADER SCREEN PRINTING.PARTS DEPARTMENT MANAGER Work Phone: [facility] 05-28-2023 18:20-0400 Respiratory rate 16 /min Deena Ivey SECTION LEADER SCREEN PRINTING.PARTS DEPARTMENT MANAGER Work Phone: [facility] 05-28-2023 18:20-0400 SaO2% (BldA) [Mass fraction] 98 % Deena Ivey SECTION LEADER SCREEN PRINTING.PARTS DEPARTMENT MANAGER Work Phone: [facility] 05-28-2023 18:20-0400 Systolic blood pressure 144 mm[Hg] Deena Ivey SECTION LEADER SCREEN PRINTING.PARTS DEPARTMENT MANAGER Work Phone: [facility] 05-26-2023 23:37-0400 Diastolic blood pressure 71 mm[Hg] Dr. Willam Estrada Work Phone: [facility] 05-26-2023 23:37-0400 Heart rate 80 /min Dr. Willam Estrada Work Phone: [facility] 05-26-2023 23:37-0400 Respiratory rate 89 /min Dr. Willam Estrada Work Phone: 5(646)566-818906 [place] [address] 05-26-2023 23:37-0400 SaO2% (BldA) [Mass fraction] 94 % Dr. Willam Estrada Work Phone: 3(103)609-047206 [place] [address] 05-26-2023 23:37-0400 Systolic blood pressure 167 mm[Hg] Dr. Willam Estrada Work Phone: 0(715)481-519306 [place] [address] 05-26-2023 21:43-0400 Body temperature 99 [degF] Dr. Willam Estrada Work Phone: 4(836)753-925706 [place] [address] 05-26-2023 21:39-0400 Body height 167.[address] Willam Estrada Work Phone: 1(796)129-198706 [place] [address] 05-26-2023 21:39-0400 Body mass index (BMI) [Ratio] 32.8 kg/m2 Dr. Willam Estrada Work Phone: 2(335)355-415989 [place] [address] 05-26-2023 21:39-0400 Body weight 92.[address] Willam Estrada Work Phone: [facility] 04-24-2023 13:34-0400 Body height 167.6 cm Leila Rubi PA-C Work Phone: [facility] 04-24-2023 13:34-0400 Body weight 91.17 kg Leila Janeen PA-C Work Phone: [facility] 04-24-2023 13:34-0400 Diastolic blood pressure 80 mm[Hg] Leila Gillilandone PA-C Work Phone: [facility] 04-24-2023 13:34-0400 Heart rate 76 /min Leila Janeen PA-C Work Phone: [facility] 04-24-2023 13:34-0400 Respiratory rate 14 /min Leila Janeen PA-C Work Phone: [facility] 04-24-2023 13:34-0400 SaO2% (BldA) [Mass fraction] 96 % Leila Janeen PA-C Work Phone: [facility] 04-24-2023 13:34-0400 Systolic blood pressure 118 mm[Hg] Leila Gillilandone PA-C Work Phone: [facility] 04-24-2023 13:08-0400 Body height 164.6 cm Pulm Wstr Work Phone: [facility] 04-24-2023 13:08-0400 Body weight 91.17 kg Pulm Wstr Work Phone: [facility] 04-24-2023 13:08-0400 Heart rate 75 /min Pulm Wstr Work Phone: [facility] 04-24-2023 13:08-0400 Respiratory rate 14 /min Pulm Wstr Work Phone: [facility] 04-24-2023 13:08-0400 SaO2% (BldA) [Mass fraction] 97 % Pulm Wstr Work Phone: [facility] 01-04-2023 15:29-0400 Body height 167.[address] Willam Estrada Work Phone: [facility] 01-04-2023 15:29-0400 Body mass index (BMI) [Ratio] 33.2 kg/m2 Dr. Willam Estrada Work Phone: [facility] 01-04-2023 15:29-0400 Body weight 93.[address] Willam Estrada Work Phone: [facility] 01-04-2023 15:29-0400 Diastolic blood pressure 96 mm[Hg] Dr. Willam Estrada Work Phone: [facility] 01-04-2023 15:29-0400 Heart rate 71 /min Dr. Willam Estrada Work Phone: [facility] 01-04-2023 15:29-0400 SaO2% (BldA) [Mass fraction] 97 % Dr. Willam Estrada Work Phone: [facility] 01-04-2023 15:29-0400 Systolic blood pressure 157 mm[Hg] Dr. Willam Estrada Work Phone: [facility] 12-29-2022 23:11-0400 Diastolic blood pressure 89 mm[Hg] [facility] 12-29-2022 23:11-0400 Heart rate 93 /min [facility] 12-29-2022 23:11-0400 Respiratory rate 24 /min [facility] 12-29-2022 23:11-0400 SaO2% (BldA) [Mass fraction] 93 % [facility] 12-29-2022 23:11-0400 Systolic blood pressure 141 mm[Hg] [facility] 12-29-2022 21:39-0400 Body temperature 97.1 [degF] [facility] 12-29-2022 20:00-0400 Body height 167.64 cm [facility] 12-29-2022 20:00-0400 Body mass index (BMI) [Ratio] 33.7 kg/m2 [facility] 12-29-2022 20:00-0400 Body weight 94.7 kg [facility] 12-21-2022 13:36-0400 Body weight 92.53 kg Leila Gillilandone PA-C Work Phone: [facility] 12-21-2022 13:36-0400 Diastolic blood pressure 70 mm[Hg] Leila Gillilandone PA-C Work Phone: [facility] 12-21-2022 13:36-0400 Heart rate 86 /min Leila Gillilandone PA-C Work Phone: [facility] 12-21-2022 13:36-0400 Respiratory rate 18 /min Leila Rubi PA-C Work Phone: [facility] 12-21-2022 13:36-0400 SaO2% (BldA) [Mass fraction] 94 % Leila Rubi PA-C Work Phone: [facility] 12-21-2022 13:36-0400 Systolic blood pressure 108 mm[Hg] Leila Rubi PA-C Work Phone: [facility] 12-18-2022 19:15-0400 Body temperature 97.3 [degF] Willam Estrada MD Work Phone: [facility] 12-18-2022 19:15-0400 Body weight 91.17 kg Willam Estrada MD Work Phone: [facility] 12-18-2022 19:15-0400 Diastolic blood pressure 64 mm[Hg] Willam Estrada MD Work Phone: [facility] 12-18-2022 19:15-0400 Heart rate 81 /min Willam Estrada MD Work Phone: [facility] 12-18-2022 19:15-0400 Respiratory rate 18 /min Willam Estrada MD Work Phone: [facility] 12-18-2022 19:15-0400 SaO2% (BldA) [Mass fraction] 97 % Willam Estrada MD Work Phone: [facility] 12-18-2022 19:15-0400 Systolic blood pressure 104 mm[Hg] Willam Estrada MD Work Phone: [facility] 11-21-2022 16:06-0400 Body temperature 98.4 [degF] Deena Ivey SECTION LEADER SCREEN PRINTING.PARTS DEPARTMENT MANAGER Work Phone: [facility] 11-21-2022 16:06-0400 Body weight 94.53 kg Deena Ivey SECTION LEADER SCREEN PRINTING.PARTS DEPARTMENT MANAGER Work Phone: [facility] 11-21-2022 16:06-0400 Diastolic blood pressure 78 mm[Hg] Deena Ivey SECTION LEADER SCREEN PRINTING.PARTS DEPARTMENT MANAGER Work Phone: [facility] 11-21-2022 16:06-0400 Heart rate 89 /min Deena Ivey SECTION LEADER SCREEN PRINTING.PARTS DEPARTMENT MANAGER Work Phone: [facility] 11-21-2022 16:06-0400 Respiratory rate 18 /min Deena Ivey SECTION LEADER SCREEN PRINTING.PARTS DEPARTMENT MANAGER Work Phone: [facility] 11-21-2022 16:06-0400 SaO2% (BldA) [Mass fraction] 98 % Deena Ivey SECTION LEADER SCREEN PRINTING.PARTS DEPARTMENT MANAGER Work Phone: [facility] 11-21-2022 16:06-0400 Systolic blood pressure 110 mm[Hg] Deena Ivey SECTION LEADER SCREEN PRINTING.PARTS DEPARTMENT MANAGER Work Phone: [facility] 10-08-2022 11:01-0500 Diastolic blood pressure 75 mm[Hg] Willam Estrada MD Work Phone: [facility] 10-08-2022 11:01-0500 Systolic blood pressure 119 mm[Hg] Willam Estrada MD Work Phone: [facility] 10-08-2022 10:55-0500 Body weight 93.44 kg Willam Estrada MD Work Phone: [facility] 10-08-2022 10:55-0500 Heart rate 78 /min Willam Estrada MD Work Phone: [facility] 10-08-2022 10:55-0500 Respiratory rate 18 /min Willam Estrada MD Work Phone: [facility] 10-08-2022 10:55-0500 SaO2% (BldA) [Mass fraction] 96 % Willam Estrada MD Work Phone: [facility] 08-24-2022 19:25-0500 SaO2% (BldA) [Mass fraction] 99 % [facility] 08-24-2022 18:07-0500 Body height 167.64 cm [facility] 08-24-2022 18:07-0500 Body mass index (BMI) [Ratio] 31.3 kg/m2 [facility] 08-24-2022 18:07-0500 Body temperature 98.9 [degF] [facility] 08-24-2022 18:07-0500 Body weight 87.99 kg [facility] 08-24-2022 18:07-0500 Diastolic blood pressure 99 mm[Hg] [facility] 08-24-2022 18:07-0500 Heart rate 87 /min [facility] 08-24-2022 18:07-0500 Respiratory rate 20 /min [facility] 08-24-2022 18:07-0500 Systolic blood pressure 184 mm[Hg] [facility] 08-07-2022 14:56-0500 Body weight 92.53 kg Willam Estrada MD Work Phone: [facility] 08-07-2022 14:56-0500 Diastolic blood pressure 82 mm[Hg] Willam Estrada MD Work Phone: [facility] 08-07-2022 14:56-0500 Heart rate 77 /min Willam Estrada MD Work Phone: [facility] 08-07-2022 14:56-0500 SaO2% (BldA) [Mass fraction] 95 % Willam Estrada MD Work Phone: [facility] 08-07-2022 14:56-0500 Systolic blood pressure 118 mm[Hg] Willam Estrada MD Work Phone: [facility] 07-05-2022 13:28-0400 Diastolic blood pressure 78 mm[Hg] Diana Older SECTION LEADER SCREEN PRINTING.PARTS DEPARTMENT MANAGER Work Phone: [facility] 07-05-2022 13:28-0400 Heart rate 68 /min Diana Older SECTION LEADER SCREEN PRINTING.PARTS DEPARTMENT MANAGER Work Phone: [facility] 07-05-2022 13:28-0400 Respiratory rate 16 /min Diana Older SECTION LEADER SCREEN PRINTING.PARTS DEPARTMENT MANAGER Work Phone: [facility] 07-05-2022 13:28-0400 Systolic blood pressure 122 mm[Hg] Diana Older SECTION LEADER SCREEN PRINTING.PARTS DEPARTMENT MANAGER Work Phone: [facility] 07-02-2022 17:35-0400 Diastolic blood pressure 88 mm[Hg] [facility] 07-02-2022 17:35-0400 Heart rate 71 /min [facility] 07-02-2022 17:35-0400 Respiratory rate 16 /min [facility] 07-02-2022 17:35-0400 SaO2% (BldA) [Mass fraction] 98 % [facility] 07-02-2022 17:35-0400 Systolic blood pressure 137 mm[Hg] [facility] 07-02-2022 13:57-0400 Body mass index (BMI) [Ratio] 31.6 kg/m2 [facility] 07-02-2022 13:57-0400 Body temperature 97.6 [degF] [facility] 07-02-2022 13:57-0400 Body weight 88.9 kg [facility] 07-02-2022 11:44-0400 Body weight 93.44 kg Diana Older SECTION LEADER SCREEN PRINTING.PARTS DEPARTMENT MANAGER Work Phone: [facility] 07-02-2022 11:44-0400 Diastolic blood pressure 90 mm[Hg] Diana Older SECTION LEADER SCREEN PRINTING.PARTS DEPARTMENT MANAGER Work Phone: [facility] 07-02-2022 11:44-0400 Heart rate 88 /min Diana Older SECTION LEADER SCREEN PRINTING.PARTS DEPARTMENT MANAGER Work Phone: [facility] 07-02-2022 11:44-0400 Respiratory rate 16 /min Diana Older SECTION LEADER SCREEN PRINTING.PARTS DEPARTMENT MANAGER Work Phone: [facility] 07-02-2022 11:44-0400 SaO2% (BldA) [Mass fraction] 98 % Diana Older SECTION LEADER SCREEN PRINTING.PARTS DEPARTMENT MANAGER Work Phone: [facility] 07-02-2022 11:44-0400 Systolic blood pressure 138 mm[Hg] Diana Older SECTION LEADER SCREEN PRINTING.PARTS DEPARTMENT MANAGER Work Phone: [facility] 06-27-2022 16:46-0400 Body temperature 98.29 [degF] Diana Older SECTION LEADER SCREEN PRINTING.PARTS DEPARTMENT MANAGER Work Phone: [facility] 06-27-2022 16:46-0400 Body weight 92.08 kg Diana Older SECTION LEADER SCREEN PRINTING.PARTS DEPARTMENT MANAGER Work Phone: [facility] 06-27-2022 16:46-0400 Diastolic blood pressure 98 mm[Hg] Diana Older SECTION LEADER SCREEN PRINTING.PARTS DEPARTMENT MANAGER Work Phone: [facility] 06-27-2022 16:46-0400 Heart rate 73 /min Diana Older SECTION LEADER SCREEN PRINTING.PARTS DEPARTMENT MANAGER Work Phone: [facility] 06-27-2022 16:46-0400 Respiratory rate 16 /min Diana Older SECTION LEADER SCREEN PRINTING.PARTS DEPARTMENT MANAGER Work Phone: [facility] 06-27-2022 16:46-0400 SaO2% (BldA) [Mass fraction] 98 % Diana Older SECTION LEADER SCREEN PRINTING.PARTS DEPARTMENT MANAGER Work Phone: [facility] 06-27-2022 16:46-0400 Systolic blood pressure 142 mm[Hg] Diana Older SECTION LEADER SCREEN PRINTING.PARTS DEPARTMENT MANAGER Work Phone: [facility] 06-22-2022 15:42-0400 Body temperature 97.9 [degF] Rufus Cruz PA-C Work Phone: [facility] 06-22-2022 15:42-0400 Body weight 93.08 kg Rufus Cruz PA-C Work Phone: [facility] 06-22-2022 15:42-0400 Diastolic blood pressure 98 mm[Hg] Rufus Cruz PA-C Work Phone: [facility] 06-22-2022 15:42-0400 Heart rate 81 /min Rufus Cruz PA-C Work Phone: [facility] 06-22-2022 15:42-0400 Respiratory rate 20 /min Rufus Cruz PA-C Work Phone: [facility] 06-22-2022 15:42-0400 SaO2% (BldA) [Mass fraction] 96 % Rufus Cruz PA-C Work Phone: [facility] 06-22-2022 15:42-0400 Systolic blood pressure 142 mm[Hg] Rufus Cruz PA-C Work Phone: [facility] 04-06-2022 14:33-0400 Body weight 90.72 kg Willam Estrada MD Work Phone: [facility] 04-06-2022 14:33-0400 Diastolic blood pressure 72 mm[Hg] Willam Estrada MD Work Phone: [facility] 04-06-2022 14:33-0400 Heart rate 73 /min Willam Estrada MD Work Phone: [facility] 04-06-2022 14:33-0400 SaO2% (BldA) [Mass fraction] 97 % Willam Estrada MD Work Phone: [facility] 04-06-2022 14:33-0400 Systolic blood pressure 112 mm[Hg] Willam Estrada MD Work Phone: [facility] 02-22-2022 13:35-0400 Diastolic blood pressure 73 mm[Hg] Patti Manrique MD Work Phone: [facility] 02-22-2022 13:35-0400 Heart rate 81 /min Patti Manrique MD Work Phone: [facility] 02-22-2022 13:35-0400 Respiratory rate 23 /min Patti Manrique MD Work Phone: [facility] 02-22-2022 13:35-0400 SaO2% (BldA) [Mass fraction] 94 % aPtti Manrique MD Work Phone: [facility] 02-22-2022 13:35-0400 Systolic blood pressure 120 mm[Hg] Patti Manrique MD Work Phone: [facility] 02-22-2022 13:21-0400 Body temperature 97.11 [degF] Patti Manrique MD Work Phone: [facility] 02-16-2022 14:23-0400 Body height 167.[address] Willam Estrada Work Phone: [facility] Work Phone: 02-16-2022 14:23-0400 Body mass index (BMI) [Ratio] 32.3 kg/m2 Dr. Willam Estrada Work Phone: [facility] Work Phone: 02-16-2022 14:23-0400 Body weight 90.[address] Willam Estrada Work Phone: [facility] Work Phone: 02-16-2022 14:23-0400 Diastolic blood pressure 92 mm[Hg] Dr. Willam Estrada Work Phone: [facility] Work Phone: 02-16-2022 14:23-0400 Heart rate 76 /min Dr. Willam Estrada Work Phone: [facility] Work Phone: 02-16-2022 14:23-0400 Respiratory rate 18 /min Dr. Willam Estrada Work Phone: [facility] Work Phone: 02-16-2022 14:23-0400 SaO2% (BldA) [Mass fraction] 96 % Dr. Willam Estrada Work Phone: [facility] Work Phone: 02-16-2022 14:23-0400 Systolic blood pressure 135 mm[Hg] Dr. Willam Estrada Work Phone: [facility] Work Phone: 02-09-2022 14:24-0400 Body height 167.6 cm Patti Manrique MD Work Phone: [facility] 02-09-2022 14:24-0400 Body temperature 96.1 [degF] Patti Manrique MD Work Phone: [facility] 02-09-2022 14:24-0400 Body weight 90.72 kg Patti Manrique MD Work Phone: [facility] 02-09-2022 14:24-0400 Diastolic blood pressure 66 mm[Hg] Patti Manrique MD Work Phone: [facility] 02-09-2022 14:24-0400 Heart rate 86 /min Patti Manrique MD Work Phone: [facility] 02-09-2022 14:24-0400 SaO2% (BldA) [Mass fraction] 96 % Patti Manrique MD Work Phone: [facility] 02-09-2022 14:24-0400 Systolic blood pressure 108 mm[Hg] Patti Manrique MD Work Phone: [facility] 02-06-2022 14:26-0400 Body temperature 98.49 [degF] [facility] SECTION LEADER SCREEN PRINTING.PARTS DEPARTMENT MANAGER Work Phone: [facility] 02-06-2022 14:26-0400 Body weight 91.17 kg [facility] SECTION LEADER SCREEN PRINTING.PARTS DEPARTMENT MANAGER Work Phone: [facility] 02-06-2022 14:26-0400 Diastolic blood pressure 70 mm[Hg] Felipe Pendlebury SECTION LEADER SCREEN PRINTING.PARTS DEPARTMENT MANAGER Work Phone: [facility] 02-06-2022 14:26-0400 Heart rate 78 /min Felipe Pendlebury SECTION LEADER SCREEN PRINTING.PARTS DEPARTMENT MANAGER Work Phone: [facility] 02-06-2022 14:26-0400 Respiratory rate 16 /min [facility] SECTION LEADER SCREEN PRINTING.PARTS DEPARTMENT MANAGER Work Phone: [facility] 02-06-2022 14:26-0400 SaO2% (BldA) [Mass fraction] 97 % [facility] SECTION LEADER SCREEN PRINTING.PARTS DEPARTMENT MANAGER Work Phone: [facility] 02-06-2022 14:26-0400 Systolic blood pressure 124 mm[Hg] Felipe Pendlebury SECTION LEADER SCREEN PRINTING.PARTS DEPARTMENT MANAGER Work Phone: [facility] 01-15-2022 15:33-0400 Diastolic blood pressure 82 mm[Hg] Dr. Willam Estrada Work Phone: [facility] Work Phone: 01-15-2022 15:33-0400 Systolic blood pressure 134 mm[Hg] Dr. Willam Estrada Work Phone: [facility] Work Phone: 01-15-2022 09:00-0400 Body height 167.[address] Willam Estrada Work Phone: [facility] Work Phone: 01-15-2022 09:00-0400 Body mass index (BMI) [Ratio] 33.5 kg/m2 Dr. Willam Estrada Work Phone: [facility] Work Phone: 01-15-2022 09:00-0400 Body weight 94.[address] Willam Estrada Work Phone: [facility] Work Phone: 01-15-2022 09:00-0400 Heart rate 92 /min Dr. Willam Estrada Work Phone: [facility] Work Phone: 01-15-2022 09:00-0400 SaO2% (BldA) [Mass fraction] 92 % Dr. Willam Estrada Work Phone: [facility] Work Phone: 01-09-2022 14:28-0400 Diastolic blood pressure 78 mm[Hg] Willam Estrada MD Work Phone: [facility] 01-09-2022 14:28-0400 Systolic blood pressure 122 mm[Hg] Willam Estrada MD Work Phone: [facility] 01-09-2022 13:50-0400 Body weight 93.89 kg Willam Estrada MD Work Phone: [facility] 01-09-2022 13:50-0400 Heart rate 88 /min Willam Estrada MD Work Phone: [facility] 01-04-2022 16:04-0400 Body height 167.[address] Willam Estrada Work Phone: [facility] Work Phone: 01-04-2022 16:04-0400 Body mass index (BMI) [Ratio] 33.7 kg/m2 Dr. Willam Estrada Work Phone: [facility] Work Phone: 01-04-2022 16:04-0400 Body weight 94.[address] Willam Estrada Work Phone: [facility] Work Phone: 01-04-2022 16:04-0400 Diastolic blood pressure 62 mm[Hg] Dr. Willam Estrada Work Phone: [facility] Work Phone: 01-04-2022 16:04-0400 Heart rate 80 /min Dr. Willam Estrada Work Phone: [facility] Work Phone: 01-04-2022 16:04-0400 Respiratory rate 18 /min Dr. Willam Estrada Work Phone: [facility] Work Phone: 01-04-2022 16:04-0400 Systolic blood pressure 124 mm[Hg] Dr. Willam Estrada Work Phone: [facility] Work Phone: 12-14-2021 17:08-0400 Body height 167.[address] Willam Estrada Work Phone: [facility] Work Phone: 12-14-2021 17:08-0400 Body mass index (BMI) [Ratio] 33.5 kg/m2 Dr. Willam Estrada Work Phone: [facility] Work Phone: 12-14-2021 17:08-0400 Body weight 94.[address] Willam Estrada Work Phone: [facility] Work Phone: 12-14-2021 17:07-0400 Body temperature 98.7 [degF] Dr. Willam Estrada Work Phone: [facility] Work Phone: 12-14-2021 17:07-0400 Diastolic blood pressure 85 mm[Hg] Dr. Willam Estrada Work Phone: [facility] Work Phone: 12-14-2021 17:07-0400 Heart rate 84 /min Dr. Willam Estrada Work Phone: [facility] Work Phone: 12-14-2021 17:07-0400 SaO2% (BldA) [Mass fraction] 97 % Dr. Willam Estrada Work Phone: [facility] Work Phone: 12-14-2021 17:07-0400 Systolic blood pressure 123 mm[Hg] Dr. Willam Estrada Work Phone: [facility] Work Phone: 12-04-2021 16:50-0400 Body weight 94.35 kg Willam Estrada MD Work Phone: [facility] 12-04-2021 16:50-0400 Diastolic blood pressure 86 mm[Hg] Willam Estrada MD Work Phone: [facility] 12-04-2021 16:50-0400 Heart rate 82 /min Willam Estrada MD Work Phone: [facility] 12-04-2021 16:50-0400 Systolic blood pressure 126 mm[Hg] Willam Estrada MD Work Phone: [facility] Encounters Encounter Date Encounter Type Care Provider Facility Start: 03-07-2025 End: 03-08-2025 Refill Leilani Ramirez APRN.CNS Work Phone: [facility] [place] Comment on above: Refill Request Start: 03-02-2025 End: 06-24-2025 Subsequent hospital visit by physician [facility] Work Phone: Radiology Comment on above: Acute right ankle pa in [M25.571] Start: 03-02-2025 End: 03-02-2025 Patient encounter procedure Jonnathanalbania Mckeon DO Work Phone: Vascular Surgery Comment on above: Toe pain, right (Mitra tex Dx); Family history of abdominal aortic aneurysm (AAA); Ectasia of artery; Acute right ankle pain Start: 03-02-2025 End: 03-02-2025 ambulatory WILLAM ESTRADA Facility:[facility] Start: 02-27-2025 End: 02-27-2025 Follow-up encounter Amanda Crow APRN.CNP Work Phone: [facility] Comment on above: Results Start: 02-25-2025 End: 02-25-2025 Patient encounter procedure Martha Diop APRN.CNP Work Phone: [facility] Comment on above: Urinary frequency (P rimary Dx); Asthma, unspecified asthma severity, unspecified whether complicated, unspecified whether persistent (HCC); History of urinary tract infection Start: 02-25-2025 End: 02-25-2025 ambulatory MARTHA DIOP Facility:[facility] Start: 02-04-2025 End: 02-04-[address] Blake Avilez MD -[facility] Work Phone: Start: 02-04-2025 End: 02-04-[address] Willam Estrada MD Work Phone: [facility] Work Phone: Start: 01-12-2025 End: 01-12-2025 Office outpatient visit 25 minutes Rufus Ohara PA-C Work Phone: [facility] Comment on above: Urinary frequency (P rimary Dx) Start: 01-12-2025 End: 01-12-2025 ambulatory RUFUS OHARA Facility:[facility] Start: 12-25-2024 End: 12-25-2024 ambulatory WILLAM ESTRADA Facility:[facility] Start: 12-24-2024 End: 12-24-2024 [facility] Start: 12-24-2024 End: 12-24-2024 ambulatory Yusra Destiney Facility:[facility] Start: 12-18-2024 End: 12-18-[address] Willam Estrada MD Work Phone: [facility] Work Phone: Start: 12-18-2024 End: 12-18-2024 Patient encounter procedure Yusra Fulk DC -[facility] Work Phone: Start: 12-18-2024 End: 12-18-2024 ambulatory Yusra Cabello Facility:[facility] Start: 12-11-2024 End: 12-11-2024 ambulatory Naila Lanier RN Work Phone: [employer] Comment on above: Initial enrollment o venkatesh for Chronic Disease Management Start: 12-09-2024 End: 12-09-2024 ambulatory Madonna Elizabeth Mun[facility] Start: 12-09-2024 End: 12-09-2024 Patient encounter procedure Madonna Elizabeth Munafo [facility] Comment on above: Population Health Na vigation Outreach (ACO High Risk - attempt 2) Start: 12-04-2024 End: 12-04-2024 ambulatory Madonna Elizabeth Munaf[facility] Start: 12-04-2024 End: 12-04-2024 Patient encounter procedure Madonna Elizabeth Munafo [facility] Comment on above: Population Health Na vigation Outreach (ACO High Risk - attempt 1 ) Start: 11-29-2024 End: 11-30-2024 Refill Willam Estrada MD Work Phone: [facility] [place] Comment on above: Refill Request Start: 11-26-2024 End: 11-26-2024 Telephone encounter Willam Estrada MD Work Phone: [facility] [place] Comment on above: Forms Start: 11-25-2024 End: 11-25-2024 ambulatory WILLAM D TALAMPAS Facility:[facility] Start: 11-25-2024 End: 11-25-2024 Patient encounter procedure Leila Rubi PA-C Work Phone: Pulmonary Medicine Comment on above: Moderate persistent asthma without complication (Primary Dx); Lung nodules; Class 2 obesity; Tobacco use current; YARY (obstructive sleep apnea); Family history of abdominal aortic aneurysm (AAA); Ectasia of artery (HCC) Start: 11-24-2024 End: 01-24-2025 Follow-up encounter Justyna Mora APRN.CNP Work Phone: Pulmonary Medicine Start: 11-24-2024 End: 11-24-2024 Patient encounter procedure Indigo Nichols PA-C Work Phone: Neurology Comment on above: Neuropathy (Primary Dx); Carpal tunnel syndrome of right wrist Start: 11-24-2024 End: 11-24-2024 ambulatory WILLAM D EMILIEAS Facility:[facility] Start: 11-23-2024 End: 11-23-2024 ambulatory WILLAM D TALAMPAS Facility:[facility] Start: 11-23-2024 End: 11-23-2024 Subsequent hospital visit by physician [facility] (I-Stat) Work Phone: Cat Scan Comment on above: Tobacco use current [Z72.0] Start: 11-19-2024 End: 11-19-2024 Telephone encounter Willam Estrada MD Work Phone: [facility] [place] Comment on above: Insurance Authorizat ion Start: 11-18-2024 End: 11-18-2024 Office outpatient visit 25 minutes Willam Estrada MD Work Phone: [facility] [place] Comment on above: Type 2 diabetes sara itus with diabetic neuropathy, without long-term current use of insulin (HCC) (Primary Dx); Essential hypertension; Moderate persistent asthma without complication; Anxiety and depression; Neuropathy; Bilateral leg edema; Chronic obstructive pulmonary disease with (acute) exacerbation (HCC) Start: 11-18-2024 End: 11-18-2024 ambulatory WILLAM D TALAMPAS Facility:[facility] Start: 11-16-2024 End: 11-16-2024 Patient encounter procedure Yusra BROWN -[facility] Work Phone: Start: 11-16-2024 End: 11-16-2024 ambulatory Willam Estrada Facility:[facility] Start: 11-11-2024 ambulatory Aly Jeffrey Facility:[facility] Start: 11-11-2024 Non-patient / Non-visit Dr. Aly lopez MD -[facility]- Start: 11-11-2024 End: 11-11-[address] Willam Estrada MD Work Phone: [facility] Work Phone: Start: 11-11-2024 End: 11-11-2024 Patient encounter procedure INDIGO BROWN -Pulmonary Services/Neurology Work Phone: Start: 11-11-2024 End: 11-11-2024 ambulatory Willam Estrada Facility:[facility] Start: 11-02-2024 End: 11-02-[address] Blake Avilez MD -Physical Therapy Work Phone: Start: 11-02-2024 End: 11-02-2024 ambulatory Blake Avilez Facility:[facility] Start: 10-30-2024 End: 10-30-[address] León Cruz MD -[facility] Work Phone: Start: 10-30-2024 End: 10-30-2024 ambulatory Willam Estrada Facility:[facility] Start: 10-16-2024 End: 10-16-2024 Patient encounter procedure Ya Singh PA -[facility] Work Phone: Start: 10-16-2024 End: 10-16-2024 ambulatory Willam Estrada Facility:[facility] Start: 10-07-2024 End: 10-07-2024 ambulatory WILLAM ESTRADA Facility:[facility] Start: 10-07-2024 End: 10-07-2024 Subsequent hospital visit by physician [facility] Comment on above: Encounter for screen ing mammogram for breast cancer [Z12.31] Start: 09-14-2024 End: 09-14-2024 Refill Deanna Pagan APRN.PARTS DEPARTMENT MANAGER Work Phone: [facility] [place] Comment on above: Refill Request Start: 09-11-2024 End: 09-11-[address] Shaq Rush MD -[facility] Start: 09-11-2024 End: 09-14-2024 Refill Willam Estrada MD Work Phone: [facility] [place] Comment on above: Refill Request Start: 09-08-2024 End: 09-08-[address] Blake Avilez MD -[facility] Work Phone: Start: 09-08-2024 End: 09-08-2024 ambulatory Willam D Talampas Facility:[facility] Start: 09-03-2024 End: 09-03-2024 Patient encounter procedure Yusra Cabello [facility] Work Phone: Start: 09-03-2024 End: 09-03-2024 ambulatory Willam Kit Vargasampas Facility:[facility] Start: 08-25-2024 End: 08-25-2024 Social Work [facility] Social Work Comment on above: Needs assistance wit h community resources (Primary Dx) Start: 08-17-2024 End: 08-17-2024 Social Work [facility] Social Work Comment on above: Needs assistance wit community resources (Primary Dx) Start: 08-14-2024 End: 08-14-2024 Patient Outreach Alyssa Hathaway RN Work Phone: [employer] Comment on above: Started Weekly phone contact (Recurring) for Transitional Care Management Start: 08-12-2024 End: 08-12-2024 Patient encounter procedure Deanna Pagan APRN.PARTS DEPARTMENT MANAGER Work Phone: [facility] [place] Comment on above: Essential hypertensi on (Primary Dx); GRACIELA (acute kidney injury) (HCC); Elevated brain natriuretic peptide (BNP) level; Multifocal pneumonia Start: 08-12-2024 End: 08-13-2024 ambulatory Mona Corrigan MD Work Phone: Pulmonary Medicine Comment on above: blood results Start: 08-11-2024 End: 08-11-2024 Patient encounter procedure Mona Corrigan MD Work Phone: Pulmonary Medicine Comment on above: Multifocal pneumonia (Primary Dx); Pleural effusion; Cigarette smoker Start: 08-11-2024 End: 08-11-2024 ambulatory [facility] Facility:[facility] Start: 08-10-2024 End: 08-10-2024 Telephone encounter Mona Corrigan MD Work Phone: Pulmonary Medicine Comment on above: Needs assistance wit h community resources (Primary Dx) Start: 08-10-20[facility] Start: 08-10-2024 Non-patient / Non-visit Dr. Rosendo trejo MD -[facility] Start: 08-10-2024 End: 08-10-2024 Patient encounter procedure Kemi BROWN -Cardiovascular Services Work Phone: Start: 08-10-2024 End: 08-10-2024 ambulatory [facility] Facility:[facility] Start: 08-09-2024 End: 08-09-2024 Emergency department patient visit Dr. Julián Schrader DO -Emergency Department Work Phone: Start: 08-07-2024 End: 08-07-2024 Patient Outreach Alyssa Hathaway RN Work Phone: [employer] Comment on above: Transition Of Care ( TCM/ OON [facility] 08/05 ) Initial phone contact for Transitional Care Management Start: 08-05-2024 End: 08-06-2024 Emergency department patient visit Dr. Lissette Guerin DO -Emergency Department Work Phone: Start: 08-05-2024 End: 08-05-2024 ambulatory Yenifer Alberto RN NURSE [employer]INO F[employer]OR PERSON Comment on above: Infection Start: 08-05-2024 Non-patient / Non-visit Dr. Kaylynn Dunaway MD -[facility] Work Phone: Start: 08-04-2024 Non-patient / Non-visit Dr. Kaylynn Dunaway MD -[facility] Work Phone: Start: 08-04-2024 End: 08-04-2024 Telephone encounter Willam Estrada MD Work Phone: [facility] [place] Comment on above: Orders (For bath/sudha wer chair) Start: 08-03-2024 End: 08-03-2024 Telephone encounter Mirtha BROWN Work Phone: [facility] Comment on above: Results Start: 08-03-2024 Non-patient / Non-visit Dr. Kaylynn Dunaway MD -[facility] Work Phone: Start: 08-02-2024 Non-patient / Non-visit Dr. Thalia melgar MD -[facility] Work Phone: Start: 08-02-2024 ambulatory Thalia Hernandez Facility:[facility] Start: 08-02-2024 End: 08-05-2024 Evaluation and management of inpatient Dr. Neal Dunaway MD -Progressive Care Unit Work Phone: Start: 08-01-2024 End: 08-01-2024 ambulatory WILLAM ESTRADA Facility:[facility] Start: 08-01-2024 End: 08-01-2024 Office outpatient visit 25 minutes Felipe Jolly APRN.CNP Work Phone: [facility] Comment on above: Pain with urination (Primary Dx) Start: 07-31-2024 End: 07-31-2024 Social Work [facility] Social Work Comment on above: Needs assistance wit h community resources (Primary Dx) Start: 07-29-2024 End: 07-29-2024 Office outpatient visit 25 minutes Willam Estrada MD Work Phone: [facility] [place] Comment on above: Type 2 diabetes sara itus with diabetic neuropathy, without long-term current use of insulin (HCC) (Primary Dx); Neck pain, musculoskeletal; Mixed hyperlipidemia; Essential hypertension; Class 1 obesity due to excess calories with body mass index (BMI) of 30.0 to 30.9 in adult, unspecified whether serious comorbidity present; Primary osteoarthritis of both knees; Primary osteoarthritis of both hips; Balance disorder; Neuropathy; Other chronic back pain; Chronic midline low back pain with bilateral sciatica; Chronic fatigue; Anxiety and depression Start: 07-29-2024 End: 07-29-2024 ambulatory WILLAM ESTRADA Facility:[facility] Start: 07-29-2024 End: 07-31-2024 Telephone encounter Willam Estrada MD Work Phone: [facility] [place] Comment on above: Orders Start: 07-29-2024 End: 07-29-2024 Patient encounter procedure Indigo Nichols PA-C Work Phone: Neurology Comment on above: Neuropathy (Primary Dx); Other fatigue Start: 07-29-2024 End: 07-29-2024 ambulatory WILLAM ESTRADA Facility:[facility] Start: 07-23-2024 End: 07-23-2024 [facility] Comment on above: Needs assistance wit h community resources (Primary Dx) Start: 07-22-2024 End: 07-23-2024 [facility] Comment on above: Needs assistance wit h community resources (Primary Dx) Chronic disease patriciajesus lara (CDM outreach) Start: 07-10-2024 End: 07-10-2024 Refill Willam Estrada MD Work Phone: [facility] [place] Comment on above: Refill Request Start: 07-07-2024 End: 07-09-2024 Telephone encounter Willam Estrada MD Work Phone: [facility] [place] Comment on above: Neuropathy Start: 07-03-2024 End: 07-03-2024 ambulatory Oxana Pack RN [employer] Comment on above: CDM (Telephonic outr each/) Start: 07-02-2024 ambulatory Rito Sanchez NP Facility :[facility] Start: 07-02-2024 End: 07-02-2024 ambulatory Rito Sanchez NP Facility:[facility] Start: 06-29-2024 End: 06-29-2024 Telephone encounter Mona Corrigan MD Work Phone: Pulmonary Medicine Start: 06-23-2024 End: 06-23-2024 ambulatory WILLAM ESTRADA Facility:[facility] Start: 06-23-2024 End: 06-23-2024 Subsequent hospital visit by physician [facility] (I-Stat) Work Phone: Cat Scan Comment on above: Lung nodules [R91.8] Start: 06-22-2024 End: 06-22-2024 ambulatory WILALM Pantoja CHELEECHO Facility:[facility] Start: 06-10-2024 End: 06-12-2024 Refill Willam Estrada MD Work Phone: [facility] [place] Comment on above: Refill Request Start: 06-04-2024 End: 06-04-2024 ambulatory Oxana Pack RN [employer] Comment on above: CDM (Telephonic outr each/) Start: 05-20-2024 End: 05-20-2024 Telephone encounter Willam Estrada MD Work Phone: [facility] [place] Comment on above: Medication Request Start: 05-19-2024 End: 05-19-2024 Office outpatient visit 15 minutes Willam Estrada MD Work Phone: [facility] [place] Comment on above: Sinobronchitis (Prim hortencia Dx); Stage 2 moderate COPD by GOLD classification (HCC); Acute upper respiratory infection; Acute viral syndrome Start: 05-19-2024 End: 05-19-2024 ambulatory WILLAM VARGASECHO Facility:[facility] Start: 05-08-2024 End: 05-09-2024 Emergency department patient visit Willammerari Estrada Facility:[facility] Start: 05-08-2024 End: 05-08-2024 ambulatory Keyana Vieira RN NURSE CASINO FLOOR PERSON Comment on above: Dysuria Start: 05-07-2024 End: 05-07-2024 ambulatory WILLAM VARGASECHO Facility:[facility] Start: 05-07-2024 End: 05-07-2024 Patient encounter procedure Mona Corrigan MD Work Phone: Pulmonary Medicine Comment on above: Lung nodules (Primar y Dx); Moderate persistent asthma without complication; Cigarette smoker; Class 2 obesity Start: 04-28-2024 End: 04-28-2024 ambulatory Rola Browne RN Work Phone: [employer] Comment on above: Community Monitoring Outreach (CDM Telephonic Outreach/) Start: 04-20-2024 End: 04-20-2024 ambulatory WILLAM ESTRADA Facility:[facility] Start: 04-20-2024 End: 04-20-2024 Office outpatient visit 25 minutes Willam Estrada MD Work Phone: [facility] [place] Comment on above: Acute bronchitis wit h chronic obstructive pulmonary disease (COPD) (HCC) (HCC) (Primary Dx); Essential hypertension; Type 2 diabetes mellitus with hyperglycemia, without long-term current use of insulin (HCC); Mixed hyperlipidemia; Severe persistent asthma with acute exacerbation; Encounter for long-term current use of medication; Class 1 obesity due to excess calories with body mass index (BMI) of 30.0 to 30.9 in adult, unspecified whether serious comorbidity present Start: 04-19-2024 ambulatory Renu Peña RN NURSE CASINO FLOOR PERSON Comment on above: Difficulty Breathing Start: 04-09-2024 ambulatory Alyssa Hathaway RN Work Phone: [employer] Start: 04-09-2024 Telephone follow-up Alyssa Hathaway RN Work Phone: [employer] Comment on above: Transition Of Care ( TCM OON followup ) Weekly phone contact (Recurring) for Transitional Care Management Start: 04-06-2024 ambulatory Willam silva MD Work Phone: [facility] [place] Comment on above: My ursodiaol 300 mg Refill Request Start: 03-31-2024 Telephone encounter Willam todd MD Work Phone: [facility] [place] Comment on above: Patient Question Start: 03-30-2024 End: 03-30-2024 Office outpatient visit 25 minutes Willam Estrada MD Work Phone: [facility] [place] Comment on above: Acute cystitis witho ut hematuria (Primary Dx); History of sepsis; Gas bloat syndrome; Urinary urgency; Type 2 diabetes mellitus with hyperglycemia, without long-term current use of insulin (HCC); Other chronic back pain Start: 03-30-2024 End: 03-30-2024 ambulatory WILLAM ESTRADA Facility:[facility] Start: 03-27-2024 ambulatory Willam Sernaas Facilit y:[facility] Start: 03-26-2024 Patient Outreach Alyssa Hathaway RN Work Phone: [employer] Comment on above: Transition Of Care ( YONAS / MISAEL Var[place] 03/24/24) Initial phone contact for Transitional Care Management Refill Request Start: 03-23-2024 Telephone encounter Deena rodriguez SECTION LEADER SCREEN PRINTING.PARTS DEPARTMENT MANAGER Work Phone: [facility] Comment on above: Results Start: 03-23-2024 ambulatory Willam Estrada Facilit y:[facility] Start: 03-23-2024 ambulatory [facility] Facility:[facility] Start: 03-21-2024 ambulatory [facility] Facility:[facility] Start: 03-21-2024 End: 03-24-2024 Evaluation and management of inpatient [facility] Facility:[facility] Start: 03-20-2024 End: 03-20-2024 Patient encounter procedure Deena Ivey SECTION LEADER SCREEN PRINTING.PARTS DEPARTMENT MANAGER Work Phone: [place] [facility] Comment on above: Cystitis (Primary Dx ) Start: 03-20-2024 End: 03-20-2024 ambulatory Rito Sanchez NP Facility:[facility] Start: 03-20-2024 Telephone encounter Willam todd MD Work Phone: [facility] [place] Comment on above: Patient Update Start: 03-09-2024 End: 03-09-2024 ambulatory Willam Estrada Facility:[facility] Start: 03-04-2024 End: 03-04-2024 Subsequent hospital visit by physician Ronaldo [facility] [place] Work Phone: Radiology Comment on above: Elbow swelling, righ t [M25.421] Start: 03-04-2024 End: 03-04-2024 Office outpatient visit 25 minutes Felipe Jolly APRN.PARTS DEPARTMENT MANAGER Work Phone: [facility] Comment on above: Acute cough (Primary Dx); Elbow swelling, right; Suspected COVID-19 virus infection Start: 02-28-2024 End: 02-28-2024 ambulatory León Moreno Facility:[facility] Start: 02-25-2024 Telephone encounter Allegra barboza APRN.PARTS DEPARTMENT MANAGER Work Phone: [facility] [place] Comment on above: Results Start: 02-18-2024 End: 02-18-2024 Subsequent hospital visit by physician Ronaldo [facility] [place] Work Phone: Radiology Comment on above: Injury of toe on lef t foot, initial encounter [E79.922A] Start: 02-18-2024 End: 02-18-2024 Patient encounter procedure Allegra Berumen APRN.PARTS DEPARTMENT MANAGER Work Phone: [facility] [place] Comment on above: YARY (obstructive sle ep apnea) (Primary Dx); Injury of toe on left foot, initial encounter Start: 01-20-2024 Telephone encounter Willam todd MD Work Phone: [facility] [place] Comment on above: Patient Question Start: 12-12-2023 ambulatory Willam silva MD Work Phone: [facility] [place] Comment on above: Miserable with stoma ch Start: 12-12-2023 Telephone encounter Willam todd MD Work Phone: [facility] [place] Comment on above: Results Start: 12-06-2023 End: 12-06-2023 Office outpatient visit 40 minutes Willam Estrada MD Work Phone: [facility] [place] Comment on above: Diarrhea, unspecifie d type (Primary Dx); Elevated CK; Myalgias; Type 2 diabetes mellitus with hyperglycemia, without long-term current use of insulin (HCC); Class 1 obesity due to excess calories with body mass index (BMI) of 32.0 to 32.9 in adult, unspecified whether serious comorbidity present; YARY (obstructive sleep apnea) Start: 11-29-2023 Telephone encounter Willam todd MD Work Phone: [facility] [place] Comment on above: Muscle biopsy Start: 11-28-2023 Non-patient / Non-visit Dr. Celestina Estrada Work Phone: [facility] Start: 11-28-2023 End: 11-28-2023 Admission to same day surgery center Dr. Willam Estrada Work Phone: [facility]-Endoscopy Work Phone: Start: 11-28-2023 End: 11-28-[address] Willam Estrada Work Phone: [facility] Work Phone: Start: 11-25-2023 Telephone encounter Justyna jo SECTION LEADER SCREEN PRINTING.PARTS DEPARTMENT MANAGER Work Phone: Pulmonary Medicine Comment on above: Results Start: 11-22-2023 End: 11-22-2023 Subsequent hospital visit by physician [facility] (I-Stat) Work Phone: Cat Scan Comment on above: Tobacco use current [Z72.0] Start: 11-20-2023 Telephone encounter Willam todd MD Work Phone: [facility] [place] Comment on above: Orders; office notes need addenum done Start: 11-19-2023 End: 11-19-2023 Office outpatient visit 25 minutes Willam Estrada MD Work Phone: [facility] [place] Comment on above: Type 2 diabetes sara itus with hyperglycemia, without long-term current use of insulin (HCC) (Primary Dx); YARY (obstructive sleep apnea); Neuropathy; Anxiety and depression; Essential hypertension; Mixed hyperlipidemia; Severe persistent asthma without complication; Recurrent major depressive disorder, in remission (HCC); Type 2 diabetes mellitus with diabetic neuropathy, without long-term current use of insulin (HCC) Start: 11-11-2023 End: 11-11-2023 ambulatory Pulm Lab [facility] Work Phone: [facility] Comment on above: Spirometry Start: 11-11-2023 End: 11-11-2023 Patient encounter procedure Pulm Lab [facility] Work Phone: [facility] Comment on above: Encounter for screen ing for lung cancer (Primary Dx); Tobacco use current Start: 11-08-2023 Refill Willam silva MD Work Phone: [facility] [place] Comment on above: Refill Request Start: 11-05-2023 End: 11-05-2023 Patient encounter procedure Mona Corrigan MD Work Phone: Pulmonary Medicine Comment on above: Asthma with COPD (HC C) (Primary Dx); Cigarette smoker; YARY (obstructive sleep apnea) Start: 10-22-2023 End: 10-22-[address] Willam Estrada Work Phone: [facility] Work Phone: Start: 10-22-2023 End: 10-22-[address] Willam Estrada Work Phone: [facility] Work Phone: Start: 09-20-2023 End: 09-20-2023 Emergency department patient visit Dr. Willam Estrada Work Phone: [facility]-Emergency Department Work Phone: Start: 08-30-2023 Telephone encounter Mona Corrigan MD Work Phone: [facility] [place] Comment on above: Orders; Care Coordin ator - Other Start: 08-26-2023 End: 08-26-[address] Willam Estrada Work Phone: [facility] Gastroenterology Work Phone: Start: 08-09-2023 Refill Willam silva MD Work Phone: [facility] [place] Comment on above: Refill Request Start: 07-23-2023 End: 11-14-2023 Subsequent [facility] Work Phone: [facility] Comment on above: Acute pain of right shoulder [M25.511] Start: 07-23-2023 End: 07-23-2023 Office outpatient visit 40 minutes Willam Estrada MD Work Phone: [facility] [place] Comment on above: Essential hypertensi on (Primary Dx); Throbbing headache; Acute pain of right shoulder; Type 2 diabetes mellitus with hyperglycemia, without long-term current use of insulin (HCC); Severe persistent asthma without complication; Pain in both lower extremities; Encounter for immunization Start: 07-18-2023 ambulatory Rola Browne RN Work Phone: [facility] Comment on above: Hypertension Start: 07-18-2023 Follow-up encounter Rola Bravo RN Work Phone: [employer] Comment on above: Community Monitoring Outreach (Escalation follow up/) Start: 07-17-2023 ambulatory Rola Browne RN Work Phone: [employer] Comment on above: Community Monitoring Outreach (CDM Escalation Outreach/) Start: 07-04-2023 ambulatory Rola Browne RN Work Phone: [employer] Comment on above: Community Monitoring Outreach (CDM Escalation Outreach/) Start: 07-01-2023 Non-patient / Non-visit Dr. Celestina Estrada Work Phone: [facility] Start: 07-01-2023 End: 07-01-2023 Admission to same day surgery center Dr. Willam Estrada Work Phone: [facility]-Endoscopy Work Phone: Start: 07-01-2023 End: 07-01-[address] Willam Estrada Work Phone: [facility] Work Phone: Start: 06-28-2023 Refill Leilani Ramirez APRN.PRETZEL PACKER Work Phone: [facility] [place] Comment on above: Refill Request Start: 06-27-2023 End: 06-28-2023 Emergency department patient visit Dr. Willam Estrada [facility] Work Phone: Start: 06-20-2023 End: 06-20-[address] Willam Estrada Work Phone: [facility] Work Phone: Start: 06-20-2023 End: 06-20-[address] [facility]str[facility] Work [facility]: Start: 06-19-2023 End: 06-19-[address] Willam Estrada Work Phone: [facility] Work Phone: Start: 06-19-2023 End: 06-19-[address] Will[facility]strada [facility]: Start: 06-10-2023 End: 06-10-[address] Willam Estrada [facility] Work Phone: Start: 06-03-2023 Telephone encounter Willam todd MD Work Phone: [facility] [place] Comment on above: Results; Patient Upd ate Start: 05-31-2023 End: 05-31-2023 Patient encounter procedure Allegra Berumen APRN.PARTS DEPARTMENT MANAGER Work Phone: [facility] [place] Comment on above: Hives (Primary Dx); Dermatitis; Other fatigue Start: 05-30-2023 End: 05-30-2023 Emergency department patient visit Dr. Willam Estrada [facility] Work Phone: Start: 05-28-2023 End: 05-28-2023 Subsequent hospital visit by physician [facility] Work Phone: Radiology Comment on above: Acute cough [R05.1] Start: 05-28-2023 End: 05-28-2023 Patient encounter procedure Deena Uche ANDERSPARTS DEPARTMENT MANAGER Work Phone: [facility] Comment on above: Acute cough (Primary Dx); Asthma with COPD with exacerbation ([facility]) Start: 05-26-2023 End: 05-27-2023 Emergency department patient visit Dr. 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 Willam Estrada Work Phone: [facility] Work Phone: Start: 04-09-2023 End: 04-09-[address] Willam Estrada Work Phone: [facility]-Ultrasound, [facility] Work Phone: Start: 04-01-2023 End: 04-01-[address] Willam Estrada Work Phone: [facility] Work Phone: Start: 04-01-2023 End: 04-01-[address] Willam Estrada Work Phone: [facility]-Laboratory Work Phone: Start: 03-28-2023 End: 03-28-[address] Willam Estrada Work Phone: [facility] Gastroenter[facility] Work Phone: Start: 03-25-2023 End: 03-25-[address] Willam Estrada Work Phone: [facility] Work Phone: Start: 03-25-2023 End: 03-25-[address] Willam Estrada Work Phone: [facility], [facility] Work Phone: Start: 03-21-2023 End: 03-21-[address] Willam Estrada Work Phone: [facility] Work Phone: Start: 03-14-2023 ambulatory Rola Browne RN Work Phone: [employer] Comment on above: Community Monitoring Outreach (CDM Engagement Outreach/) Start: 03-11-2023 Refill Wlilam silva MD Work Phone: [facility] [place] Comment on above: Refill Request Start: 02-12-2023 End: 02-12-[address] Willam Estrada Work Phone: [facility] Start: 02-08-2023 Refill Willam silva MD Work Phone: [facility] [place] Comment on above: Refill Request Start: 01-30-2023 End: 01-30-[address] Willam Estrada Work Phone: [facility] Work Phone: Start: 01-30-2023 End: 01-30-[address] Willam Estrada Work Phone: [facility]-Laboratory Start: 01-15-2023 End: 01-15-[address] Willam Estrada Work Phone: [facility] Work Phone: Start: 01-15-2023 End: 01-15-[address] Willam Estrada Work Phone: [facility]-Cat Scan, [facility] Start: 01-07-2023 End: 01-07-[address] Willam Estrada Work Phone: [facility]-Laboratory, Specimen Start: 01-04-2023 End: 01-04-[address] Willam Estrada Work Phone: [facility] Work Phone: Start: 01-04-2023 End: 01-04-[address] 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 (HCC) (Primary Dx); Tobacco abuse; Seasonal allergies Start: 12-18-2022 End: 12-18-2022 Office outpatient visit 40 minutes Willam Estrada MD Work Phone: [facility] [place] Comment on above: COPD with exacerbati on (HCC) (Primary Dx); Itching; Sinobronchitis; Recurrent major depressive disorder, in remission (HCC) Start: 12-17-2022 Telephone encounter Willam todd MD Work Phone: [facility] [place] Comment on above: Patient Update Start: 12-12-2022 Telephone encounter Willam todd MD Work Phone: [facility] [place] Comment on above: Patient Update (Bloo d Sugars) Start: 12-11-2022 ambulatory Tex Herrera RN NURSE CASINO FLOOR PERSON Comment on above: High Blood Sugar Start: 12-10-2022 Refill Willam silva MD Work Phone: [facility] [place] Comment on above: Refill Request Start: 12-09-2022 Refill Willam silva MD Work Phone: [facility] [place] Comment on above: Refill Request Start: 12-05-2022 End: 12-05-2022 Office outpatient visit 40 minutes Willam Estrada MD Work Phone: [facility] [place] Comment on above: Sinobronchitis (Prim hortencia Dx); Type 2 diabetes mellitus with diabetic neuropathy, without long-term current use of insulin (HCC); Essential hypertension; Encounter for long-term current use of medication; Mixed hyperlipidemia; Chronic obstructive pulmonary disease, unspecified COPD type (HCC); Neuropathy; Stage 2 moderate COPD by GOLD classification ([facility]); Moderate persistent asthma without complication; Depression, recurrent (HCC) Start: 12-04-2022 ambulatory Sherie Kay RN Work Phone: [employer] Comment on above: Community monitoring outreach ([facility] triggered escalation) Start: 11-26-2022 ambulatory Sherie Kay RN Work Phone: [employer] Start: 11-21-2022 End: 11-21-2022 Subsequent hospital visit by physician [facility] Work Phone: Radiology Comment on above: Acute cough [R05.1] Start: 11-21-2022 End: 11-21-2022 Patient encounter procedure Deena Ivey SECTION LEADER SCREEN PRINTING.PARTS DEPARTMENT MANAGER Work Phone: [facility] [facility] Comment on above: Acute cough (Primary Dx); COPD with exacerbation (HCC) Start: 11-21-2022 Telephone encounter Willam todd MD Work Phone: [facility] [place] Comment on above: Patient Update Start: 10-15-2022 End: 10-15-2022 ambulatory [facility] Work Phone: Start: 10-15-2022 End: 10-15-2022 [facility] Start: 10-10-2022 End: 10-10-2022 Subsequent hospital visit by physician Bone Density [facility] Work Phone: Radiology Comment on above: Asymptomatic postmen opausal status [Z78.0] Start: 10-08-2022 End: 10-08-2022 Office outpatient visit 40 minutes Willam Estrada MD Work Phone: [facility] [place] Comment on above: Essential hypertensi on (Primary Dx); Upper back pain; Diminished pulses in lower extremity; Pain in both lower extremities; Foot pain, bilateral; Cigarette smoker; Type 2 diabetes mellitus with diabetic neuropathy, without long-term current use of insulin (HCC); Asymptomatic postmenopausal status; Spinal stenosis of lumbar region, unspecified whether neurogenic claudication present; S/P lumbar laminectomy; Class 1 obesity due to excess calories with serious comorbidity and body mass index (BMI) of 33.0 to 33.9 in adult Start: 09-27-2022 End: 09-27-2022 Subsequent hospital visit by physician Mri Radio [facility] (I-Stat/1.5t) Work Phone: Radiology Comment on above: Acute bilateral low back pain with bilateral sciatica [M54.42, M54.41] Start: 09-22-2022 ambulatory Rola Browne RN Work Phone: [employer] Comment on above: Community Monitoring Outreach (CDM Escalation Outreach) Start: 09-20-2022 Telephone encounter Willam todd MD Work Phone: [facility] [place] Comment on above: Urologoy Referral Start: 09-19-2022 Telephone encounter Willam todd MD Work Phone: [facility] [place] Comment on above: Urology referral Start: 09-17-2022 Documentation procedure Mammog steve Coordinator [facility] Start: 09-17-2022 Letter encounter Mammography Coordinator [facility] Department Start: 09-14-2022 End: 09-14-2022 Subsequent hospital visit by physician Screen Mammo [facility] Mammogram Comment on above: Encounter for screen ing mammogram for breast cancer [Z12.31] Start: 09-07-2022 Telephone encounter Mona Corrigan MD Work Phone: Pulmonary Medicine Comment on above: Orders Start: 09-04-2022 Telephone encounter Willam todd MD Work Phone: [facility] [place] Comment on above: Thrush concern Start: 08-25-2022 End: 08-25-2022 ambulatory Daphney Pro MD Work Phone: [facility] [place] Comment on above: COVID-19 virus infec tion (Primary Dx); Severe persistent asthma, unspecified whether complicated; Type 2 diabetes mellitus with diabetic neuropathy, without long-term current use of insulin (HCC) Start: 08-25-2022 End: 08-25-2022 Telemedicine consultation with patient [facility] Pro [facility] Start: 08-24-2022 End: 08-24-2022 Emergency department patient visit [facility]Emergency Department Start: 08-24-2022 ambulatory Divina Wright RN NURSE CASINO FLOOR PERSON Comment on above: Covid19 Concern Information Start: 08-09-2022 ambulatory Mona Corrigan MD Work Phone: Pulmonary Medicine Comment on above: LD lung CT scan Start: 08-07-2022 End: 08-07-2022 Office outpatient visit 25 minutes Willam Estrada MD Work Phone: [facility] [place] Comment on above: Acute bilateral low back pain with bilateral sciatica (Primary Dx); Radiculopathy of lumbar region; Spinal stenosis of lumbar region with neurogenic claudication; Type 2 diabetes mellitus with diabetic neuropathy, without long-term current use of insulin (HCC); Cigarette smoker; Encounter for screening mammogram for breast cancer; Encounter for immunization Start: 08-05-2022 Refill Willam silva MD Work Phone: [facility] [place] Comment on above: Refill Request Start: 07-20-2022 Telephone encounter Willam todd MD Work Phone: [facility] [place] Comment on above: Medication Question Start: 07-16-2022 End: 11-07-2022 Subsequent hospital visit by physician [facility] Work Phone: Radiology Comment on above: Lower abdominal pain [R10.30] Start: 07-12-2022 Refill Willam silva MD Work Phone: [facility] [place] Comment on above: Refill Request Start: 07-09-2022 Telephone encounter Diana Andres APRN.PARTS DEPARTMENT MANAGER Work Phone: [facility] [place] Comment on above: Results Start: 07-05-2022 End: 07-05-2022 Patient encounter procedure Diana Andres SECTION LEADER SCREEN PRINTING.PARTS DEPARTMENT MANAGER Work Phone: [facility] [place] Comment on above: Type 2 diabetes sara itus with diabetic neuropathy, without long-term current use of insulin ([facility]) (Primary Dx); Lower abdominal pain; Recent urinary tract infection; Thrush Start: 07-04-2022 Telephone encounter Diana Andres APRN.PARTS DEPARTMENT MANAGER Work Phone: [facility] [place] Comment on above: Patient Update Start: 07-02-2022 End: 07-02-2022 Emergency department patient visit [facility]Emergency Department Start: 07-02-2022 End: 07-02-2022 Patient encounter procedure Diana Andres APRN.PARTS DEPARTMENT MANAGER Work Phone: [facility] [place] Comment on above: Severe persistent as thma, unspecified whether complicated (Primary Dx); Chronic obstructive pulmonary disease, unspecified COPD type ([facility]); Type 2 diabetes mellitus with diabetic neuropathy, without long-term current use of insulin ([facility]); Recent urinary tract infection; Abdominal tenderness without rebound tenderness, unspecified location Start: 06-27-2022 End: 06-27-2022 Patient encounter procedure Diana Andres SECTION LEADER SCREEN PRINTING.PARTS DEPARTMENT MANAGER Work Phone: [facility] [place] Comment on above: COPD with exacerbati on (HCC) (Primary Dx); Moderate persistent asthma with acute exacerbation; Urinary tract infection without hematuria, site unspecified Start: 06-27-2022 End: 06-27-2022 Subsequent hospital visit by physician Ronaldo [facility] Work Phone: Radiology Comment on above: Moderate persistent asthma with acute exacerbation [J45.41] Start: 06-26-2022 ambulatory Rola Browne RN Work Phone: [employer] Comment on above: Community Monitoring Outreach ([employer] [facility] Escalation) Start: 06-26-2022 Telephone encounter Willam todd MD Work Phone: [facility] [place] Comment on above: Patient Update; Orde rs Start: 06-22-2022 End: 06-22-2022 Office outpatient visit 15 minutes Rufus Cruz PA-C Work Phone: [facility] Comment on above: Painful urination (P rimary Dx); URI, acute Start: 06-20-2022 End: 06-20-2022 Patient encounter procedure [facility] Start: 06-11-2022 Refill Willam silva MD Work Phone: [facility] [place] Comment on above: Refill Request; Refi ll Request Start: 06-01-2022 End: 06-01-[address] Willam Estrada Work Phone: [facility] Work Phone: Start: 06-01-2022 End: 06-01-[address] Willam Estrada Work Phone: [facility] [facility], [facility] Start: 05-15-2022 ambulatory Sherie Kay RN Work Phone: [employer] Comment on above: Community monitoring outreach ([facility] triggered call) Start: 05-08-2022 End: 05-08-2022 ambulatory Steven Faye [facility] Comment on above: Chronic midline low back pain, unspecified whether sciatica present (Primary Dx); S/P lumbar laminectomy; Gait instability Start: 04-19-2022 End: 04-19-2022 ambulatory Steven Faye PT [facility] Physical Therapy Comment on above: Chronic midline low back pain, unspecified whether sciatica present (Primary Dx); S/P lumbar laminectomy; Gait instability Start: 04-17-2022 End: 04-17-2022 ambulatory Steven Faye [facility] Comment on above: Chronic midline low back pain, unspecified whether sciatica present (Primary Dx); S/P lumbar laminectomy; Gait instability Start: 04-11-2022 Refill Willam silva MD Work Phone: [facility] [place] Comment on above: Refill Request Start: 04-10-2022 End: 04-10-2022 [facility] Comment on above: S/P lumbar laminecto my; Chronic midline low back pain, unspecified whether sciatica present; Spinal stenosis of lumbar region, unspecified whether neurogenic claudication present; Gait instability Start: 04-06-2022 End: 04-06-2022 Office outpatient visit 25 minutes Willam Estrada MD Work Phone: [facility] [place] Comment on above: Chronic midline low back pain, unspecified whether sciatica present (Primary Dx); Type 2 diabetes mellitus with diabetic neuropathy, without long-term current use of insulin (HCC); Class 1 obesity due to excess calories without serious comorbidity with body mass index (BMI) of 32.0 to 32.9 in adult; Allergic rhinitis, unspecified seasonality, unspecified trigger; Anxiety and depression; Spinal stenosis of lumbar region, unspecified whether neurogenic claudication present; S/P lumbar laminectomy; Essential hypertension; Neuropathy; Gait instability; Encounter for long-term current use of medication; Pure hyperglyceridemia Start: 03-27-2022 ambulatory Willam silva MD Work Phone: [facility] [place] Start: 03-13-2022 End: 03-13-2022 Subsequent hospital visit by physician Ronaldo [facility] Work Phone: Radiology Comment on above: Acute cough [R05.1] Start: 03-09-2022 End: 03-09-2022 ambulatory Lori Matamoros PA-C Work Phone: General Surgery Comment on above: Hemorrhoids, unspeci fied hemorrhoid type (Primary Dx); Hiatal hernia; Gastroesophageal reflux disease, unspecified whether esophagitis present; Tubular adenoma Start: 03-09-2022 End: 03-09-2022 Telemedicine consultation with patient Lori Matamoros PA-C Work Phone: [facility] Start: 02-23-2022 Refill Willam silva MD Work Phone: [facility] [place] Comment on above: Refill Request Start: 02-22-2022 End: 02-22-2022 Subsequent hospital visit by physician Patti Manrique MD Work Phone: LD SURGERY Comment on above: Rectal bleeding [K62 .5] Start: 02-16-2022 End: 02-16-[address] Willam Estrada Work Phone: [facility] [facility] Start: 02-09-2022 End: 02-09-2022 Patient encounter procedure Patti Manrique MD Work Phone: General Surgery Comment on above: Rectal bleeding (Mitra tex Dx); Epigastric abdominal pain; Abdominal bloating; Rectus diastasis Start: 02-09-2022 Telephone encounter Patti Colindres MD Work Phone: General Surgery Comment on above: 02-22-2022 COLON EGD LODI Start: 02-06-2022 End: 02-06-2022 Patient encounter procedure Felipe Jolly APRN.PARTS DEPARTMENT MANAGER Work Phone: [facility] Comment on above: Abdominal bloating ( Primary Dx); Abdominal mass, unspecified abdominal location Start: 02-06-2022 Telephone encounter Odilia Costello [facility] Work Phone: [facility] Comment on above: Allied Health Visit (MyChart Adventure Guide ) Start: 01-24-2022 Non-patient / Non-visit Dr. Celestina Estrada Work Phone: [facility] Start: 01-24-2022 End: 01-24-[address] 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 Willam Estrada Work Phone: [facility]Labor[facility] Start: 01-15-2022 End: 01-15-[address] Willam Estrada Work Phone: [facility] Start: 01-09-2022 End: 01-09-2022 Office outpatient visit 25 minutes Willam Estrada MD Work Phone: [facility] [place] Comment on above: Gross hematuria (Mitra tex Dx); Acute cystitis with hematuria; Dysuria; Urinary frequency; Urinary urgency; Essential hypertension; Cigarette smoker Start: 01-09-2022 End: 01-09-[address] [facility]ada [facility] Start: 01-04-2022 End: 01-04-[address] Willam Estrada Work Phone: [facility] Start: 12-26-2021 End: 12-26-[address] Willam Estrada Work Phone: [facility]Nuclear Medicine, [facility] Start: 12-22-2021 End: 12-22-[address] Willam Estrada Work Phone: [facility]-Cat Scan, [facility] Start: 12-18-2021 ambulatory Kimmy de la cruz RN Work Phone: [employer] Comment on above: community monitoring outreach (enrollment) Start: 12-15-2021 End: 12-15-[address] Willam Estrada Work Phone: [facility] Start: 12-14-2021 End: 12-14-[address] Willam Estrada Work Phone: [facility] Start: 12-14-2021 End: 12-14-[address] Willam Estrada Work Phone: [facility] Start: 12-13-2021 ambulatory Kimmy de la cruz RN Work Phone: [employer] Comment on above: community monitoring outreach (enrollment) Start: 12-13-2021 E-mail encounter fro m caregiver Willam Estrada MD Work Phone: [facility] Start: 12-13-2021 Follow-up encounter Willam todd MD Work Phone: [facility] [place] Comment on above: Follow-up appointmen t Start: 12-08-2021 Telephone encounter Willam todd MD Work Phone: [facility] [place] Comment on above: Medication Request Start: 12-04-2021 End: 12-04-2021 Office outpatient visit 25 minutes Willam Estrada MD Work Phone: [facility] [place] Comment on above: Neuropathy (Primary Dx); Anxiety and depression; Neck pain, musculoskeletal; Insomnia, unspecified type; Abdominal distension, gaseous Start: 11-15-2021 Non-patient / Non-visit Dr. Celestina Estrada Work Phone: [facility] Start: 10-11-2021 End: 10-11-[address] Willam Estrada Work Phone: [facility] Start: 10-04-2021 End: 10-04-[address] Willam Estrada Work Phone: [facility] Start: 08-14-2021 End: 08-14-2021 Subsequent hospital visit by physician Ronaldo [facility] Work Phone: Radiology Comment on above: Chest pain, unspecif ied type [R07.9] Start: 03-22-2021 End: 03-22-2021 Subsequent hospital visit by physician Xr [facility] [place] Work Phone: Radiology Comment on above: Cough [R05] Start: 08-17-2020 End: 08-17-2020 Subsequent hospital visit by physician Xr [facility] Work Phone: Radiology Comment on above: S/P lumbar laminecto my [Z98.890] Start: 08-02-2017 End: 08-02-2017 Ambulatory RADHA JETT Facility:[facility] Start: 07-22-2017 End: 07-23-2017 Ambulatory RADHA JETT Facility:[facility] Procedures Date Procedure Procedure Detail Performing Clinician Start: 02-25-2025 Urnls dip stick/tablet rgnt auto w/o microscopy Martha Diop SECTION LEADER SCREEN PRINTING.PARTS DEPARTMENT MANAGER Work Phone: Start: 01-12-2025 Urnls dip stick/tablet rgnt auto w/o microscopy Deena Ivey SECTION LEADER SCREEN PRINTING.PARTS DEPARTMENT MANAGER Work Phone: Start: 12-18-2024 MRI of lumbar spine Dr. Willam Estrada MD Work Phone: Start: 11-23-2024 CT LUNG SCREEN WO MARGARET Mora SECTION LEADER SCREEN PRINTING.PARTS DEPARTMENT MANAGER Work Phone: Start: 10-07-2024 Screening digital breast tomosynthesis kay Barrios MD Work Phone: Start: 09-11-2024 X-ray of cervical spine Dr. Willam silva MD Work Phone: Start: 09-03-2024 MRI of cervical spine Dr. Willam Estrada MD Work Phone: Start: 08-09-2024 CT angiography of chest with contrast Dr. Willam Estrada MD Work Phone: Start: 08-09-2024 X-ray of chest, PA and lateral views Dr. Willam Estrada MD Work Phone: Start: 08-09-2024 SARS-CoV-2, Influenza & RSV (PCR) Dr. Celestina Estrada MD Work Phone: Start: 08-05-2024 Computed tomography of abdomen and pelvis with intravenous contrast Dr. Willam Estrada MD Work Phone: Start: 08-05-2024 CT angiography of chest with contrast Dr. Willam Estrada MD Work Phone: Start: 08-02-[address] Willam Estrada MD Work Phone: Start: 08-02-[address] Willam Estrada MD Work Phone: Start: 08-02-[address] Willam Estrada MD Work Phone: Start: 08-02-[address] Willam Estrada MD Work Phone: Start: 08-02-[address] Willam kaur MD Work Phone: Start: 08-02-2024 SARS-CoV-2, Influenza & RSV (PCR) Dr. Celestina Estrada MD Work Phone: Start: 08-02-[address] Willam Estrada MD Work Phone: Start: 08-02-2024 Plain chest X-ray Dr. Willam Estrada MD Work Phone: Start: 08-01-2024 Urnls dip stick/tablet rgnt auto w/o microscopy Deena Ivey SECTION LEADER SCREEN PRINTING.PARTS DEPARTMENT MANAGER Work Phone: Start: 03-30-2024 Culture bacterial quanttative colony count urine Willam Estrada MD Work Phone: Start: 03-20-2024 Urnls dip stick/tablet rgnt auto w/o microscopy Deena Ivey SECTION LEADER SCREEN PRINTING.PARTS DEPARTMENT MANAGER Work Phone: Start: 03-04-2024 Radex elbow complete minimum 3 views Felipe Jolly SECTION LEADER SCREEN PRINTING.PARTS DEPARTMENT MANAGER Work Phone: Start: 03-04-2024 Radiologic exam chest 2 views Felipe ariasbury SECTION LEADER SCREEN PRINTING.PARTS DEPARTMENT MANAGER Work Phone: Start: 02-18-2024 Radex foot complete minimum 3 views Allegra Berumen SECTION LEADER SCREEN PRINTING.PARTS DEPARTMENT MANAGER Work Phone: Start: 11-28-2023 End: 11-28-[address] Willam Estrada Work Phone: Start: 11-22-2023 CT LUNG SCREEN JAYLON Mora SECTION LEADER SCREEN PRINTING.PARTS DEPARTMENT MANAGER Work Phone: Start: 11-11-2023 Nitric oxide gas determination Mona Corrigan MD Work Phone: Start: 11-11-2023 Brncdilat rspse spmtry pre&post-brncdilat admn Mona Corrigan MD Work Phone: Start: 10-22-[address] Willam Estrada Work Phone: Start: 10-22-[address] of liver [address] Brandy Estrada Work Phone: Start: 09-20-2023 CT angiography of head Dr. Willam Estrada Work Phone: Start: 09-20-[address] Willam Estrada Work Phone: Start: 07-23-2023 Radex shoulder complete minimum 2 views Willam Estrada MD Work Phone: Start: 07-23-2023 INFLUENZA VACCINE, AGE 6 MO - 64 YR, QUADRIVALENT (AFLURIA, FLULAVAL, FLUZONE) Willam Estrada MD Work Phone: Start: 07-01-[address] Willam hernandez Work Phone: Start: 06-27-2023 Plain chest X-ray Dr. Willam Estrada Work Phone: Start: 06-10-2023 Bacteria identified in Urine by Culture Dr. Willam Estrada Work Phone: Start: 06-10-[address] Willam Estrada Work Phone: Start: 05-28-2023 Radiologic exam chest [address] [facility] SECTION LEADER SCREEN PRINTING.PARTS DEPARTMENT MANAGER Work Phone: Start: 05-26-2023 CT of abdomen and pelvis without contrast Dr. Willam Estrada Work Phone: Start: 04-24-2023 Co diffusing capacity Leila Rubi PA-C Work Phone: Start: 04-09-[address] Ul[address]ound elastography of liver Dr. Brandy Estrada Work Phone: Start: 03-25-2023 Diagnostic radiography of abdomen Dr. Celestina Estrada Work Phone: Start: 02-12-[address] Willam Estrada Work Phone: Start: 01-15-2023 Computed tomography of abdomen and pelvis with contrast Dr. Willam Estrada Work Phone: Start: 01-07-[address] Willam Estrada Work Phone: Start: 01-07-[address] Willam silva Work Phone: Start: 01-07-[address] Willam Estrada Work Phone: Start: 12-29-2022 Plain chest X-ray Start: 11-21-2022 Radiologic exam chest [address] [facility] SECTION LEADER SCREEN PRINTING.PARTS DEPARTMENT MANAGER Work Phone: Start: 10-15-2022 CT of chest Start: 10-10-2022 Dxa bone density study 1/> sites axial skel Willam Estrada MD Work Phone: Start: 09-27-2022 Mri spinal canal lumbar w/o contrast material Willam Estrada MD Work Phone: Start: 09-14-2022 End: 09-14-2022 Mammography Willam Estrada MD Work Phone: Start: 08-07-2022 INFLUENZA VACCINE QUADRIVALENT 6 MO - 64 YRS IM Willam Estrada MD Work Phone: Start: 07-16-2022 Us pelvic nonobstetric image dcmtn limited/f/u Diana Andres SECTION LEADER SCREEN PRINTING.PARTS DEPARTMENT MANAGER Work Phone: Start: 07-02-2022 CT of abdomen and pelvis without contrast Start: 07-02-2022 Urnls dip stick/tablet rgnt auto w/o microscopy Diana Andres SECTION LEADER SCREEN PRINTING.PARTS DEPARTMENT MANAGER Work Phone: Start: 06-27-2022 Radiologic exam chest 2 views Willam todd MD Work Phone: Start: 06-22-2022 Urnls dip stick/tablet rgnt auto w/o microscopy Rufus Cruz PA-C Work Phone: Start: 06-01-[address] Willam hernandez Work Phone: Start: 06-01-[address] Willam silva Work Phone: Start: 03-13-2022 Radiologic exam chest 2 views Deena Mary ggs SECTION LEADER SCREEN PRINTING.PARTS DEPARTMENT MANAGER Work Phone: Start: 02-22-2022 Gluc bld gluc mntr dev cleared fda spec home use Camden Snyder SECTION LEADER SCREEN PRINTING.FLORIST HELPER Work Phone: Start: 02-18-2022 Colonoscopy Lori Matamoros PA-C Work Phone: Start: 01-24-2022 Cardiovascular stress test using pharmacologic stress agent Dr. Willam Estrada Work Phone: Start: 01-09-2022 Culture bacterial quanttative colony count urine Willam Estrada MD Work Phone: Start: 01-09-2022 Urnls dip stick/tablet rgnt auto w/o microscopy Willam Estrada MD Work Phone: Start: 01-09-[address] Willam hernandez Work Phone: Start: 01-09-[address] Willam silva Work Phone: Start: 12-26-2021 Radionuclide gastric emptying study Dr. Willam Estrada Work Phone: Start: 12-22-2021 Computed tomography of abdomen and pelvis with contrast Dr. Willam Estrada Work Phone: Start: 12-15-20[address] [place] parasites identification Dr. Willam Estrada Work Phone: Start: 10-11-[address] Willam Estrada Work Phone: Start: 10-04-[address] Willam Estrada Work Phone: Start: 09-11-2021 Mammography Willam Estrada MD Work Phone: Start: 08-14-2021 Radiologic exam chest 2 views Deanna manriquez SECTION LEADER SCREEN PRINTING.PARTS DEPARTMENT MANAGER Work Phone: Start: 03-22-2021 Radiologic exam chest 2 views Carlos luna SECTION LEADER SCREEN PRINTING.PARTS DEPARTMENT MANAGER Work Phone: Start: 08-17-2020 Radex spine lumbosacral minimum 4 views Deirdre BROWN-C Work Phone: Start: 12-13-2011 Colonoscopy Willam Estrada MD Work Phone: Enteric Bacteriology Dr. Brandy Estrada Work Phone: History of cholecystectomy Hx of cholecys tectomy Dr. Willam Estrada Work Phone: Nucleic acid assay Dr. Willam Estrada Work Phone: Plan of Treatment Date Care Activity Detail Author Start: 11-27-2033 Screening for malignant neoplasm of colon [facility] Start: 02-19-2032 Colonoscopy COLONOSCOPY [facility] Start: 02-19-2032 COLORECTAL CANCER SCREENING COLORECTAL CANCER SCREENING [facility] Start: 02-19-2032 Screening for malignant neoplasm of colon [facility] Start: 12-25-2025 Hepatitis B surface antibody level LDL Cholesterol [facility] Start: 12-20-2025 End: 12-20-2025 Patient encounter procedure 12/20/2025 3:40 PM EDT Office Visit [facility] [place] [address] [place] [address] Willam Estrada MD [address] [place] [address] 4 month follow up [facility] [place] Comment on above: 4 month follow up Start: 11-29-2025 End: 11-29-2025 Patient encounter procedure Cat Scan Comment on above: yearly LDCT yearly LCS Start: 11-24-2025 BP Controlled (<130/80) BP Controlled (<130/80) [facility] Start: 11-23-2025 Screening for malignant neoplasm of lung Lung Cancer Screening [facility] Start: 11-18-2025 Annual PCP Team Chronic Disease Visit Annual PCP Team Chronic Disease Visit [facility] Start: 11-18-2025 BP Controlled (<130/80) BP Controlled (<130/80) [facility] Start: 10-13-2025 Glaucoma screening Dilated Retinal Exam [facility] Start: 10-07-2025 Screening for malignant neoplasm of breast Mammogram Screening [facility] Start: 08-12-2025 Annual PCP Team Chronic Disease Visit Annual PCP Team Chronic Disease Visit [facility] Start: 08-10-2025 End: 08-10-2025 Patient encounter procedure 08/10/2025 6:20 PM EST Office Visit [facility] [place] [address] [place] [address] Willam Estrada MD [address] [place] [address] 4 month follow up [facility] [place] Comment on above: 4 month follow up Start: 08-01-2025 BP Controlled (<130/80) BP Controlled (<130/80) [facility] Start: 07-29-2025 Annual PCP Team Chronic Disease Visit Annual PCP Team Chronic Disease Visit [facility] Start: 07-29-2025 BP Controlled (<130/80) BP Controlled (<130/80) [facility] Start: 06-26-2025 Hemoglobin A1c measurement HbA1C [facility] Start: 06-23-2025 Screening for malignant neoplasm of lung Lung Cancer Screening [facility] Start: 06-22-2025 Hepatitis B screening Urine Albumin:Creatinine Ratio [facility] Start: 06-22-2025 Hepatitis B surface antibody level LDL Cholesterol [facility] Start: 05-19-2025 Annual PCP Team Chronic Disease Visit Annual PCP Team Chronic Disease Visit [facility] Start: 05-19-2025 BP Controlled (<130/80) BP Controlled (<130/80) [facility] in Start: 05-10-2025 Influenza vaccination Influenza Vaccine (Season Ended) [facility] Start: 05-07-2025 BP Controlled (<130/80) BP Controlled (<130/80) [facility] Start: 04-20-2025 Annual PCP Team Chronic Disease Visit Annual PCP Team Chronic Disease Visit [facility] Start: 04-20-2025 BP Controlled (<130/80) BP Controlled (<130/80) [facility] Start: 03-30-2025 Annual PCP Team Chronic Disease Visit Annual PCP Team Chronic Disease Visit [facility] Start: 03-30-2025 BP Controlled (<130/80) BP Controlled (<130/80) [facility] Start: 03-24-2025 End: 03-24-2025 Patient encounter procedure 03/24/2025 4:00 PM EDT Office Visit [facility] [place] [address] [place] [address] Willam Estrada MD [address] [place] [address] 4 month follow up [facility] [place] Comment on above: 4 month follow up Start: 03-02-2025 End: 03-02-2025 Patient encounter procedure 03/02/2025 3:30 PM EDT Office Visit Vascular Surgery [address] [place] [address] Jonnathan Mckeon, DO [address] [place] [address] rescheduled from 01/19 Vascular Surgery Comment on above: rescheduled from 01/19 Start: 02-17-2025 Annual PCP Team Chronic Disease Visit Annual PCP Team Chronic Disease Visit [facility] Start: 02-04-2025 Patient referral [facility] Work Phone: Start: 01-22-2025 End: 01-22-2025 Patient encounter procedure Pulmonary Medicine Comment on above: 8 wk f/u Start: 01-19-2025 End: 01-19-2025 Patient encounter procedure 01/19/2025 3:00 PM EDT Office Visit [facility] [address] [facility] [place], [place] [address] Jonnathan Mckeon, DO [address] [place], [place] [id number] Family history of abdominal aortic aneurysm (AAA) [Z82.49]; 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] Vascular Surgery Comment on above: Family history of abdominal aortic aneur ysm (AAA) [Z82.49]; 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] Start: 12-21-2024 Hemoglobin A1c measurement HbA1C [facility] Start: 12-05-2024 Annual PCP Team Chronic Disease Visit Annual PCP Team Chronic Disease Visit [facility] Start: 11-25-2024 End: 11-25-2024 Patient encounter procedure 11/25/2024 1:00 PM EDT Office Visit Pulmonary Medicine [address] [place] [address] Leila Rubi PAJosefinaC [address] [place] [address] EST PATIENT / ANNUAL Pulmonary Medicine Comment on above: EST PATIENT / ANNUAL Start: 11-24-2024 End: 11-24-2024 Patient encounter procedure 11/24/2024 1:45 PM EDT Office Visit Neurology [address] [place] [address] Indigo Nichols PA-C [address] [place] [address] Neuropathy, no EMG Neurology Comment on above: Neuropathy, no EMG Start: 11-23-2024 End: 11-23-2024 Patient encounter procedure 11/23/2024 3:40 PM EDT Appointment Cat Scan [address] [place] [address] Tobacco use current [Z72.0] Cat Scan Comment on above: Tobacco use current [Z72.0] Start: 11-21-2024 Screening for malignant neoplasm of lung Lung Cancer Screening [facility] Start: 11-18-2024 End: 11-18-2024 Patient encounter procedure 11/18/2024 4:00 PM EDT Office Visit [facility] [place] [address] [place] [address] Willam Estrada MD [address] [place] [address] 4 month follow up-DM [facility] [place] Comment on above: 4 month follow up-DM Start: 11-18-2024 Annual PCP Team Chronic Disease Visit Annual PCP Team Chronic Disease Visit [facility] Start: 11-18-2024 BP Controlled (<130/80) BP Controlled (<130/80) [facility] Start: 11-15-2024 Hepatitis B surface antibody level LDL Cholesterol [facility] Start: 11-03-2024 End: 11-03-2024 Patient encounter procedure 11/03/2024 3:45 PM EST Office Visit Neurology [address] [facility], [place] [id number] Indigo Nichols PA-C [address] [facility] [place] [address] Type 2 diabetes mellitus with diabetic neuropathy, without long-term current use of insulin (HCC) [E11.40] Neurology Comment on above: Type 2 diabetes mellitus with diabetic n europathy, without long-term current use of insulin (HCC) [E11.40] Start: 10-10-2024 Glaucoma screening Dilated Retinal Exam [facility] Start: 10-07-2024 End: 10-07-2024 Patient encounter procedure 10/07/2024 3:00 PM EST Appointment Mammogram [address] [place] [address] mammo w starla Mammogram Comment on above: mammo w starla Start: 09-30-2024 Screening for malignant neoplasm of breast Mammogram Screening [facility] Start: 09-16-2024 End: 09-16-2024 Patient encounter procedure 09/16/2024 4:40 PM EST Office Visit [facility] Medicine [place] [address] [place] [address] Deanna Pagan, SECTION LEADER SCREEN PRINTING.PARTS DEPARTMENT MANAGER [address] [facility] [place] [address] 1 Month F/U [facility] [place] Comment on above: 1 Month F/U Start: 09-08-2024 Patient referral [facility] Work Phone: Start: 08-12-2024 End: 08-12-2024 Patient encounter procedure 08/12/2024 4:20 PM EST Office Visit [facility] Medicine [place] [address] [place] [address] Deanna Pagan, SECTION LEADER SCREEN PRINTING.PARTS DEPARTMENT MANAGER [address] [facility] [place] [address] hospital follow up for pneumonia and low bp [facility] [place] Comment on above: hospital follow up for pneumonia and low bp Start: 08-11-2024 End: 08-11-2024 Patient encounter procedure 08/11/2024 2:45 PM EST Office Visit Pulmonary Medicine [address] [place] [address] Mona Corrigan MD [address] [place] [address] follow up / pneumonia Pulmonary Medicine Comment on above: follow up / pneumonia Start: 08-11-2024 End: 11-10-2024 IgE [Units/volume] in Serum or Plasma [facility] Comment on above: Expected: 08/11/2024, Expires: Start: 08-11-2024 End: 11-10-2024 Natriuretic peptide.B prohormone N-Terminal [Mass/volume] in Serum or Plasma [facility] Work Phone: Comment on above: Expected: 08/11/2024, Expires: Start: 08-10-2024 End: 08-10-2024 Patient encounter procedure 08/10/2024 3:00 PM EST Office Visit Internal Medicine [place] [address] [facility] [place] [address] Deanna Pagan, SECTION LEADER SCREEN PRINTING.PARTS DEPARTMENT MANAGER [address] [facility] [place] [address] hospital follow up for pneumonia and low bp [facility] [place] Comment on above: hospital follow up for pneumonia and low bp Start: 08-09-2024 [facility] Start: 08-09-2024 [facility] Start: 08-07-2024 End: 08-07-2024 Patient encounter procedure 08/07/2024 11:00 AM EST Office Visit Internal Medicine [place] [address] [facility] [place] [address] Leilani Ramirez, SECTION LEADER SCREEN PRINTING.PRETZEL PACKER [address] [facility] [address] Discharged from [facility] 08/05/24- Rule out sepsis [facility] [place] Comment on above: Discharged from [facility] 08/05/24- Rule out s epsis Start: 08-06-2024 Annual PCP Team Chronic Disease Visit Annual PCP Team Chronic Disease Visit [facility] Start: 08-06-2024 [facility] Start: 08-05-2024 [facility] Start: 08-05-2024 Patient discharge [facility] Start: 08-03-2024 [facility] Start: 08-02-2024 Following clinical pathway protocol [facility] Start: 08-02-2024 Assessment of risk of venous thromboembolism [facility] Start: 08-02-2024 Cardiac monitoring [facility] Start: 08-02-2024 Care regimes management [facility] Start: 08-02-2024 Catheterization of vein [facility] Start: 08-02-2024 Inhalation therapy procedure [facility] Start: 08-02-2024 Insertion of catheter into peripheral vein [facility] Start: 08-02-2024 Measuring intake and output [facility] Start: 08-02-2024 Notification of physician [facility] Start: 08-02-2024 Oxygen therapy [facility] Start: 08-02-2024 Providing care according to standard [facility] Start: 08-02-2024 Provision of activity privileges [facility] Start: 08-02-2024 Referral to service [facility] Start: 08-02-2024 Tobacco use cessation education [facility] Start: 08-02-2024 End: 08-02-2024 [facility] Start: 08-02-2024 Admission procedure [facility] Start: 07-29-2024 End: 10-28-2024 Cobalamin (Vitamin B12) [Mass/volume] in Serum or Plasma [facility] Comment on above: Expected: 07/29/2024, Expires: Start: 07-29-2024 End: 10-28-2024 Methylmalonate [Moles/volume] in Serum or Plasma [facility] Work Phone: Comment on above: Expected: 07/29/2024, Expires: Start: 07-29-2024 End: 10-28-2024 PROT ELECT SERUM WITH ODELL AND INTERP [facility] Comment on above: Expected: 07/29/2024, Expires: 5 Start: 07-29-2024 End: 10-28-2024 Thyrotropin [Units/volume] in Serum or Plasma [facility] Comment on above: Expected: 07/29/2024, Expires: 5 Start: 07-29-2024 End: 07-29-2024 Patient encounter procedure [facility] [place] Comment on above: 4 month follow up-DM Type 2 diabetes sara itus with diabetic neuropathy, without long-term current use of insulin (HCC) [E11.40] Start: 07-23-2024 Covid-19 Vaccine () Covid-19 Vaccine () [facility] Comment on above: Postponed from 05/10/2023 (Declined at t his time) Start: 07-23-2024 Hepatitis B Vaccine (1 of 3 - Risk 3-dose series) Hepatitis B Vaccine (1 of 3 - Risk 3-dose series) [facility] Comment on above: Postponed from 2020 (Declined at t his time) Start: 07-23-2024 RSV Vaccine (1 - 1-dose 60+ series) RSV Vaccine (1 - 1-dose 60+ series) [facility] Comment on above: Postponed from 2020 (Declined at t his time) Start: 07-23-2024 RSV Vaccine (1 - Risk 60-74 years 1-dose series) RSV Vaccine (1 - Risk 60-74 years 1-dose series) [facility] Comment on above: Postponed from 2020 (Declined at t his time) Start: 07-23-2024 Urine microalbumin profile DTaP,Tdap,Td Vaccine (3 - Tdap) [facility] Comment on above: Postponed from 09/14/2018 (Declined at t his time) Start: 06-30-2024 End: 06-30-2024 Patient encounter procedure 06/30/2024 3:00 PM EDT Office Visit Pulmonary Medicine [address] [place] [address] Roxi Rouse APRN.PARTS DEPARTMENT MANAGER [address] [facility] Desk [address] [place] [address] F/U CT RESULTS Pulmonary Medicine Comment on above: F/U CT RESULTS Start: 06-23-2024 End: 06-23-2024 Patient encounter procedure 06/23/2024 3:20 PM EDT Appointment Cat Scan [address] [place] [address] Cat Scan Comment on above: CHEST CT Start: 06-23-2024 End: 09-22-2024 Microalbumin/Creatinine [Mass Ratio] in Urine ALBUMIN/CREATININE RATIO, URINE Lab Routine Type 2 diabetes mellitus with hyperglycemia, without long-term current use of insulin (HCC) Expected: 06/23/2024, Expires: 09/22/2024 [facility] Comment on above: Expected: 06/23/2024, Expires: Start: 06-22-2024 End: 06-06-2025 CT Chest WO contrast CT CHEST WO IVCON Radiology Routine Lung nodules Expected: 06/22/2024, Expires: 06/06/2025 [facility] Work Phone: Comment on above: Expected: 06/22/2024, Expires: Start: 05-31-2024 Annual PCP Team Chronic Disease Visit Annual PCP Team Chronic Disease Visit [facility] Start: 05-31-2024 BP Controlled (<130/80) BP Controlled (<130/80) [facility] Start: 05-24-2024 Annual PCP Team Chronic Disease Visit Annual PCP Team Chronic Disease Visit [facility] Start: 05-20-2024 BP Controlled (<130/80) BP Controlled (<130/80) [facility] Start: 05-10-2024 Covid-19 Vaccine ( season) Covid-19 Vaccine ( season) [facility] Start: 05-10-2024 Covid-19 Vaccine ( season) Covid-19 Vaccine ( season) [facility] Start: 05-10-2024 Influenza vaccination Influenza Vaccine (#1) [facility] Start: 05-07-2024 End: 05-07-2024 Patient encounter procedure 05/07/2024 2:45 PM EDT Office Visit Pulmonary Medicine [address] [place] [address] Mona Corrigan MD [address] [address] 6 MONTH FOLLOW UP Pulmonary Medicine Comment on above: 6 MONTH FOLLOW UP Start: 05-06-2024 Hepatitis B surface antibody level LDL Cholesterol [facility] Start: 04-20-2024 End: 04-20-2024 Patient encounter procedure 04/20/2024 10:40 AM EDT Office Visit [facility] Medicine [place] [address] [place] [address] Willam Estrada MD [address] [place] [address] Asthma Flare (Nurse Triage Call) [facility] [place] Comment on above: Asthma Flare (Nurse Triage Call) Start: 04-03-2024 ANNUAL PCP TEAM CHRONIC DISEASE VISIT ANNUAL PCP TEAM CHRONIC DISEASE VISIT [facility] Start: 03-30-2024 End: 03-30-2024 Patient encounter procedure 03/30/2024 2:00 PM EDT Office Visit [facility] Medicine [place] [address] [place] [address] Willam Estrada MD [address] [place] [address] [facility] f/u sepsis,uti (pt declined to schedule sooner appt, wants to wait until she finishes antibiotic) [facility] [place] Comment on above: [facility] f/u sepsis,uti (pt declined to sched ule sooner appt, wants to wait until she finishes antibiotic) Start: 03-24-2024 End: 03-24-2024 Patient encounter procedure 03/24/2024 6:20 PM EDT Office Visit [facility] [place] [address] [place] [address] Willam Estrada MD [address] [place], [place] [address] 4 month follow up [facility] [place] Comment on above: 4 month follow up Start: 03-07-2024 Hemoglobin A1c measurement HbA1C [facility] Start: 03-04-2024 End: 03-18-2024 COVID & INFLUENZA A/B & RSV NAAT, ROUTINE COVID & INFLUENZA A/B & RSV NAAT, ROUTINE Microbiology Routine Acute cough Suspected COVID-19 virus infection Expected: 03/04/2024, Expires: 03/18/2024 [facility] Work Phone: Comment on above: Expected: 03/04/2024, Expires: Start: 02-18-2024 End: 02-18-2024 Patient encounter procedure 02/18/2024 3:20 PM EDT Office Visit [facility] Medicine [place] [address] [place] [address] Allegra Berumen APRN.PARTS DEPARTMENT MANAGER [address] [place] [address] CPAP follow up for insurance [facility] [place] Comment on above: CPAP follow up for insurance Start: 02-16-2024 Hemoglobin A1c measurement HbA1C [facility] Start: 12-22-2023 BP CONTROLLED (<130/80) BP CONTROLLED (<130/80) [facility] Start: 12-20-2023 Hepatitis B screening URINE ALBUMIN:CREATININE RATIO [facility] Start: 12-20-2023 Hepatitis B surface antibody level LDL CHOLESTEROL [facility] Start: 12-19-2023 ANNUAL PCP TEAM CHRONIC DISEASE VISIT ANNUAL PCP TEAM CHRONIC DISEASE VISIT [facility] Start: 12-19-2023 BP CONTROLLED (<130/80) BP CONTROLLED (<130/80) [facility] Start: 12-06-2023 ANNUAL PCP TEAM CHRONIC DISEASE VISIT ANNUAL PCP TEAM CHRONIC DISEASE VISIT [facility] Start: 12-06-2023 SHINGRIX VACCINE (1 of 2) SHINGRIX VACCINE (1 of 2) [facility] Comment on above: Postponed from 2010 (Declined at t his time) Start: 11-28-2023 Patient discharge [facility] Start: 11-22-2023 BP CONTROLLED (<130/80) BP CONTROLLED (<130/80) [facility] Start: 11-06-2023 Hemoglobin A1c measurement HbA1C [facility] Start: 11-06-2023 Hemoglobin A1c/Hemoglobin.total in Blood HbA1C [facility] Start: 10-09-2023 Hepatitis C antibody, confirmatory test DILATED RETINAL EXAM [facility] Start: 10-08-2023 ANNUAL PCP TEAM CHRONIC DISEASE VISIT ANNUAL PCP TEAM CHRONIC DISEASE VISIT [facility] Start: 10-08-2023 BP CONTROLLED (<130/80) BP CONTROLLED (<130/80) [facility] Start: 09-20-2023 [facility] Start: 09-14-2023 Mammography [facility] Start: 08-25-2023 ANNUAL PCP TEAM CHRONIC DISEASE VISIT ANNUAL PCP TEAM CHRONIC DISEASE VISIT [facility] Start: 08-07-2023 ANNUAL PCP TEAM CHRONIC DISEASE VISIT ANNUAL PCP TEAM CHRONIC DISEASE VISIT [facility] Start: 07-31-2023 Hepatitis B surface antibody level LDL CHOLESTEROL [facility] Start: 07-05-2023 ANNUAL PCP TEAM CHRONIC DISEASE VISIT ANNUAL PCP TEAM CHRONIC DISEASE VISIT [facility] Start: 07-05-2023 BP CONTROLLED (<130/80) BP CONTROLLED (<130/80) [facility] Start: 07-02-2023 ANNUAL PCP TEAM CHRONIC DISEASE VISIT ANNUAL PCP TEAM CHRONIC DISEASE VISIT [facility] Start: 07-01-2023 Egd transoral biopsy single/multiple EGD BIOPSY SINGLE/MULTIPLE [facility] Start: 07-01-2023 Patient discharge [facility] Start: 06-28-2023 [facility] Start: 06-27-2023 [facility] Start: 06-27-2023 ANNUAL PCP TEAM CHRONIC DISEASE VISIT ANNUAL PCP TEAM CHRONIC DISEASE VISIT [facility] Start: 06-20-2023 Hemoglobin A1c/Hemoglobin.total in Blood HBA1C [facility] Start: 05-31-2023 End: 07-31-2023 JOSE F BY IFA WITH REFLEX [facility] Work Phone: Comment on above: Expected: 05/31/2023, Expires: 3 Start: 05-10-2023 Covid-19 Vaccine ( season) Covid-19 Vaccine () [facility] Start: 05-10-2023 Influenza vaccination [facility] Start: 04-06-2023 ANNUAL PCP TEAM CHRONIC DISEASE VISIT ANNUAL PCP TEAM CHRONIC DISEASE VISIT [facility] Start: 04-06-2023 BP CONTROLLED (<130/80) BP CONTROLLED (<130/80) [facility] Start: 04-06-2023 PNEUMOCOCCAL (2 - PCV) PNEUMOCOCCAL (2 - PCV) [facility] Comment on above: Postponed from 09/09/2011 (Declined at t his time) Start: 04-06-2023 Urine microalbumin profile DTAP,TDAP,TD (3 - Tdap) [facility] Comment on above: Postponed from 09/14/2018 (Declined at t his time) Start: 02-09-2023 BP CONTROLLED (<130/80) BP CONTROLLED (<130/80) [facility] Start: 02-06-2023 BP CONTROLLED (<130/80) BP CONTROLLED (<130/80) [facility] Start: 01-18-2023 BP CONTROLLED (<130/80) BP CONTROLLED (<130/80) [facility] Start: 01-09-2023 ANNUAL PCP TEAM CHRONIC DISEASE VISIT ANNUAL PCP TEAM CHRONIC DISEASE VISIT [facility] Start: 01-07-2023 Elastase, pancreatic (el-1), fecal; quantitative [facility] Start: 01-07-2023 Protein measurement [facility] Start: 12-04-2022 ANNUAL PCP TEAM CHRONIC DISEASE VISIT ANNUAL PCP TEAM CHRONIC DISEASE VISIT [facility] Start: 11-21-2022 End: 12-05-2022 Influenza virus A and B RNA and SARS-CoV-2 (COVID-19) N gene panel - Respiratory specimen by NICOLE with probe detection [facility] Work Phone: Comment on above: Expected: 11/21/2022, Expires: Start: 10-31-2022 Hemoglobin A1c/Hemoglobin.total in Blood HBA1C [facility] Start: 10-09-2022 Hepatitis C antibody, confirmatory test DILATED RETINAL EXAM [facility] Start: 09-28-2022 Hemoglobin A1c/Hemoglobin.total in Blood HBA1C [facility] Start: 09-12-2022 FECAL OCCULT BLOOD FECAL OCCULT BLOOD [facility] Start: 09-12-2022 Screening for malignant neoplasm of colon Fecal Occult Blood [facility] Start: 09-11-2022 Mammography MAMMOGRAM [facility] Start: 08-31-2022 BP CONTROLLED (<130/80) BP CONTROLLED (<130/80) [facility] Start: 08-24-2022 [facility] Start: 08-14-2022 Hepatitis B screening URINE ALBUMIN:CREATININE RATIO [facility] Start: 08-07-2022 End: 10-07-2022 CBC panel - Blood by Automated count CBC Lab Routine Essential hypertension Expected: 08/07/2022 (Approximate), Expires: 10/07/2022 [facility] Work Phone: Comment on above: Expected: 08/07/2022 (Approximate), Expi res: 10/07/2022 Start: 08-07-2022 End: 10-07-2022 Comprehensive metabolic 2000 panel - Serum or Plasma COMP METABOLIC PANEL Lab Routine Type 2 diabetes mellitus with diabetic neuropathy, without long-term current use of insulin (HCC) Essential hypertension Encounter for long-term current use of medication Expected: 08/07/2022 (Approximate), Expires: 10/07/2022 [facility] Work Phone: Comment on above: Expected: 08/07/2022 (Approximate), Expi res: 10/07/2022 Start: 08-07-2022 End: 10-07-2022 Hemoglobin A1c in Blood HGB A1C Lab Routine Type 2 diabetes mellitus with diabetic neuropathy, without long-term current use of insulin (HCC) Encounter for long-term current use of medication Expected: 08/07/2022 (Approximate), Expires: 10/07/2022 [facility] Work Phone: Comment on above: Expected: 08/07/2022 (Approximate), Expi res: 10/07/2022 Start: 08-07-2022 End: 10-07-2022 Lipid 1996 panel - Serum or Plasma LIPID PANEL BASIC Lab Routine Pure hyperglyceridemia Expected: 08/07/2022 (Approximate), Expires: 10/07/2022 [facility] Work Phone: Comment on above: Expected: 08/07/2022 (Approximate), Expi res: 10/07/2022 Start: 06-22-2022 End: 08-22-2022 Bacteria identified in Urine by Culture URINE CULTURE Microbiology Routine Painful urination Expected: 06/22/2022, Expires: 08/22/2022 [facility] Work Phone: Comment on above: Expected: 06/22/2022, Expires: 2 Start: 06-01-2022 COVID-19 VACCINE (5 - Booster for Moderna series) COVID-19 VACCINE (5 - Booster for Moderna series) [facility] Start: 05-10-2022 Influenza vaccination INFLUENZA (#1) [facility] Start: 03-31-2022 3 comp foot exam completed DIABETIC FOOT EXAM [facility] Start: 03-31-2022 Diabetic foot examination Diabetic Foot Exam [facility] Start: 03-31-2022 SHINGRIX VACCINE (1 of 2) SHINGRIX VACCINE (1 of 2) [facility] Comment on above: Postponed from 2010 (Declined at t his time) Start: 03-31-2022 Urine microalbumin profile DTAP,TDAP,TD (3 - Tdap) [facility] Comment on above: Postponed from 09/14/2018 (Declined at t his time) Start: 03-30-2022 Hepatitis B surface antibody level LDL CHOLESTEROL [facility] Start: 03-27-2022 End: 05-27-2022 SCHEDULE LAB TESTING SCHEDULE LAB TESTING Lab Routine Expected: 03/27/2022, Expires: 05/27/2022 [facility] Work Phone: Comment on above: Expected: 03/27/2022, Expires: Start: 02-12-2022 Hemoglobin A1c/Hemoglobin.total in Blood HBA1C [facility] Start: 12-15-2021 Ova and Parasites Ova and Parasites [facility] Work Phone: Start: 12-12-2021 Colonoscopy COLONOSCOPY [facility] Start: 12-12-2021 COLORECTAL CANCER SCREENING COLORECTAL CANCER SCREENING [facility] Start: 12-02-2021 COVID-19 VACCINE (4 - Booster for Moderna series) COVID-19 VACCINE (4 - Booster for Moderna series) [facility] Start: 2020 Hepatitis B Vaccine (1 of 3 - Risk 3-dose series) Hepatitis B Vaccine (1 of 3 - Risk 3-dose series) [facility] Start: 2020 RSV Vaccine (1 - 1-dose 60+ series) RSV Vaccine (1 - 1-dose 60+ series) [facility] Start: 2020 RSV Vaccine (1 - Risk 60-74 years 1-dose series) RSV Vaccine (1 - Risk 60-74 years 1-dose series) [facility] Start: 09-14-2018 Urine microalbumin profile [facility] Start: 07-10-2017 Medicare Annual Wellness Visit Medicare Annual Wellness Visit [facility] Start: 2015 Influenza vaccination LUNG CANCER SCREENING [facility] Start: 09-09-2011 PNEUMOCOCCAL (2 - PCV) PNEUMOCOCCAL (2 - PCV) [facility] Start: 09-09-2011 Pneumococcal vaccination Pneumococcal Vaccine (2 - PCV) [facility] Start: 2010 Influenza vaccination LUNG CANCER SCREENING [facility] Start: 2010 Screening for malignant neoplasm of lung Lung Cancer Screening [facility] Start: 2010 SHINGRIX VACCINE (1 of 2) SHINGRIX VACCINE (1 of 2) [facility] Start: 2005 COLOGUARD (FIT-DNA) COLOGUARD (FIT-DNA) [facility] Start: [address] COLONOGRAPHY [facility] Start: 2005 Screening for malignant neoplasm of colon [facility] Start: 2005 SIGMOIDOSCOPY SIGMOIDOSCOPY [facility] Start: 1990 Zoledronic acid therapy ALPHA-1 ANTITRYPSIN DEFICIENCY SCREENING [facility] Bacteria identified in Urine by Culture URINE CULTURE Microbiology Routine Lower abdominal pain Recent urinary tract infection 07/05/2022 2:03 PM EDT [facility] Work Phone: Bacteria identified in Urine by Culture URINE CULTURE Microbiology Routine Cystitis Ordered: 03/20/2024 [facility] Work Phone: Comment on above: Ordered: 03/20/2024 Bacteria identified in Urine by Culture URINE CULTURE Microbiology Routine Pain with urination 08/01/2024 2:44 PM EST [facility] Work Phone: Bacteria identified in Urine by Culture BACTERIAL CULTURE, URINE Microbiology Routine Urinary frequency Ordered: 01/12/2025 [facility] Work Phone: Comment on above: Ordered: 01/12/2025 Bacteria identified in Urine by Culture BACTERIAL CULTURE, URINE Microbiology Routine Urinary frequency Ordered: 02/25/2025 [facility] Work Phone: Comment on above: Ordered: 02/25/2025 End: 12-05-2023 CBC panel - Blood by Automated count CBC Lab Routine Essential hypertension Encounter for long-term current use of medication Every 4 months for 4 Occurrences starting 12/05/2022 until 12/05/2023, 1 completed [facility] Work Phone: Comment on above: Every 4 months for 4 Occurrences startin g 12/05/2022 until 12/05/2023, 1 completed End: 04-20-2025 CBC panel - Blood by Automated count COMPLETE BLOOD COUNT Lab Routine Essential hypertension Encounter for long-term current use of medication Every 3 months for 30 Occurrences starting 04/20/2024 until 04/20/2025 [facility] Comment on above: Every 3 months for 30 Occurrences starti ng 04/20/2024 until 04/20/2025 Colonoscopy [facility] Colonoscopy [facility] End: 02-09-2023 COLONOSCOPY DIAGNOSTIC COLONOSCOPY DIAGNOSTIC Endoscopy Routine Rectal bleeding 1 Occurrences starting 02/09/2022 until 02/09/2023 [facility] Work Phone: Comment on above: 1 Occurrences starting 02/09/2022 until 02/09/2023 End: 02-22-2022 COLONOSCOPY DIAGNOSTIC COLONOSCOPY DIAGNOSTIC Endoscopy Routine Rectal bleeding 1 Occurrences starting 02/22/2022 until 02/22/2022 [facility] Work Phone: Comment on above: 1 Occurrences starting 02/22/2022 until 02/22/2022 End: 12-05-2023 Comprehensive metabolic 2000 panel - Serum or Plasma COMP METABOLIC PANEL Lab Routine Essential hypertension Type 2 diabetes mellitus with diabetic neuropathy, without long-term current use of insulin (HCC) Encounter for long-term current use of medication Every 4 months for 4 Occurrences starting 12/05/2022 until 12/05/2023, 1 completed [facility] Work Phone: Comment on above: Every 4 months for 4 Occurrences startin g 12/05/2022 until 12/05/2023, 1 completed End: 04-20-2025 Comprehensive metabolic 2000 panel - Serum or Plasma COMPREHENSIVE METABOLIC PANEL Lab Routine Type 2 diabetes mellitus with hyperglycemia, without long-term current use of insulin (HCC) Essential hypertension Encounter for long-term current use of medication Every 3 months for 30 Occurrences starting 04/20/2024 until 04/20/2025 [facility] Comment on above: Every 3 months for 30 Occurrences starti ng 04/20/2024 until 04/20/2025 COVID & INFLUENZA A/ B & RSV PCR, ROUTINE COVID & INFLUENZA A/B & RSV PCR, ROUTINE Microbiology Routine Sinobronchitis Acute upper respiratory infection 05/19/2024 7:47 PM EDT [facility] Work Phone: End: 12-10-2024 CT Chest for screening WO contrast CT LUNG SCREEN WO IVCON Radiology Routine Tobacco use current 1 Occurrences starting 11/11/2023 until 12/10/2024 [facility] Work Phone: Comment on above: 1 Occurrences starting 11/11/2023 until 12/10/2024 End: 12-24-2024 CT Chest for screening WO contrast CT LUNG SCREEN WO IVCON Radiology Routine Tobacco use current 1 Occurrences starting 11/25/2023 until 12/24/2024 [facility] Work Phone: Comment on above: 1 Occurrences starting 11/25/2023 until 12/24/2024 End: 12-24-2025 CT Chest for screening WO contrast CT LUNG SCREEN WO IVCON Radiology Routine Encounter for screening for lung cancer Tobacco use current 1 Occurrences starting 11/24/2024 until 12/24/2025 [facility] Work Phone: Comment on above: 1 Occurrences starting 11/24/2024 until 12/24/2025 CT Chest WO contrast CT CHEST WO IVCON Radiology Routine Lung nodules 06/23/2024 3:51 PM EDT [facility] Work Phone: End: 11-07-2023 DXA-AXIAL SKELETON DXA-AXIAL SKELETON Radiology Routine Asymptomatic postmenopausal status 1 Occurrences starting 10/08/2022 until 11/07/2023 [facility] Work Phone: Comment on above: 1 Occurrences starting 10/08/2022 until 11/07/2023 End: 02-09-2023 EGD DIAGNOSTIC EGD DIAGNOSTIC Endoscopy Routine Epigastric abdominal pain 1 Occurrences starting 02/09/2022 until 02/09/2023 [facility] Work Phone: Comment on above: 1 Occurrences starting 02/09/2022 until 02/09/2023 End: 02-22-2022 EGD DIAGNOSTIC EGD DIAGNOSTIC Endoscopy Routine Epigastric abdominal pain 1 Occurrences starting 02/22/2022 until 02/22/2022 [facility] Work Phone: Comment on above: 1 Occurrences starting 02/22/2022 until 02/22/2022 End: 07-29-2025 EMG(NEURO/NI) EMG(NEURO/NI) EMG Routine Neuropathy 1 Occurrences starting 07/29/2024 until 07/29/2025 [facility] Comment on above: 1 Occurrences starting 07/29/2024 until 07/29/2025 End: 07-31-2025 EMG(NEURO/NI) EMG(NEURO/NI) EMG Routine Neuropathy 1 Occurrences starting 07/31/2024 until 07/31/2025 [facility] Work Phone: Comment on above: 1 Occurrences starting 07/31/2024 until 07/31/2025 End: 12-05-2023 Hemoglobin A1c in Blood HGB A1C Lab Routine Type 2 diabetes mellitus with diabetic neuropathy, without long-term current use of insulin (HCC) Every 4 months for 4 Occurrences starting 12/05/2022 until 12/05/2023, 1 completed [facility] Work Phone: Comment on above: Every 4 months for 4 Occurrences startin g 12/05/2022 until 12/05/2023, 1 completed End: 04-20-2025 Hemoglobin A1c in Blood HEMOGLOBIN A1C Lab Routine Type 2 diabetes mellitus with hyperglycemia, without long-term current use of insulin (HCC) Encounter for long-term current use of medication Every 3 months for 30 Occurrences starting 04/20/2024 until 04/20/2025 [facility] Work Phone: Comment on above: Every 3 months for 30 Occurrences starti ng 04/20/2024 until 04/20/2025 End: 12-05-2023 Lipid 1996 panel - Serum or Plasma LIPID PANEL BASIC Lab Routine Mixed hyperlipidemia Every 4 months for 4 Occurrences starting 12/05/2022 until 12/05/2023, 1 completed [facility] Work Phone: Comment on above: Every 4 months for 4 Occurrences startin g 12/05/2022 until 12/05/2023, 1 completed End: 04-20-2025 Lipid 1996 panel - Serum or Plasma LIPID PANEL BASIC Lab Routine Mixed hyperlipidemia Encounter for long-term current use of medication Every 3 months for 30 Occurrences starting 04/20/2024 until 04/20/2025 [facility] Comment on above: Every 3 months for 30 Occurrences starti ng 04/20/2024 until 04/20/2025 Liver stiffness by US.transient elastography [facility] End: 01-20-2024 LUNG DIFFUSION CAPACITY (DLCO) LUNG DIFFUSION CAPACITY (DLCO) PFT Routine Stage 2 moderate COPD by GOLD classification (HCC) 1 Occurrences starting 12/21/2022 until 01/20/2024 [facility] Work Phone: Comment on above: 1 Occurrences starting 12/21/2022 until 01/20/2024 End: 04-20-2025 Magnesium [Mass/volume] in Serum or Plasma MAGNESIUM Lab Routine Encounter for long-term current use of medication Every 3 months for 30 Occurrences starting 04/20/2024 until 04/20/2025 [facility] Comment on above: Every 3 months for 30 Occurrences starti ng 04/20/2024 until 04/20/2025 End: 09-06-2023 JAVIER SCREENING JAVIER SCREENING Radiology Routine Encounter for screening mammogram for breast cancer 1 Occurrences starting 08/07/2022 until 09/06/2023 [facility] Work Phone: Comment on above: 1 Occurrences starting 08/07/2022 until 09/06/2023 MR Lumbar spine [facility] End: 09-06-2023 Mri spinal canal lumbar w/o contrast material MRI LUMBAR SPINE WO [facility] Radiology Routine Acute bilateral low back pain with bilateral sciatica Radiculopathy of lumbar region Spinal stenosis of lumbar region with neurogenic claudication 1 Occurrences starting 08/07/2022 until 09/06/2023 [facility] Work Phone: Comment on above: 1 Occurrences starting 08/07/2022 until 09/06/2023 End: 12-04-2024 NITRIC OXIDE, EXHALED NITRIC OXIDE, EXHALED PFT Routine Asthma with COPD ([facility]) 1 Occurrences starting 11/05/2023 until 12/04/2024 [facility] Work Phone: Comment on above: 1 Occurrences starting 11/05/2023 until 12/04/2024 Patient Education [facility] Work Phone: Patient referral [facility] Work Phone: PT PLAN OF CARE CERTIFICATION PT PLAN OF CARE CERTIFICATION Procedures Routine S/P lumbar laminectomy Chronic midline low back pain, unspecified whether sciatica present Spinal stenosis of lumbar region, unspecified whether neurogenic claudication present Gait instability Ordered: 04/10/2022 [facility] Work Phone: Comment on above: Ordered: 04/10/2022 PT PLAN OF CARE CERTIFICATION PT PLAN OF CARE CERTIFICATION Procedures Routine Chronic midline low back pain, unspecified whether sciatica present S/P lumbar laminectomy Gait instability Ordered: 05/08/2022 [facility] Work Phone: Comment on above: Ordered: 05/08/2022 End: 10-08-2023 [facility] Vascular Lab Routine Essential hypertension Pain in both lower extremities Foot pain, bilateral Cigarette smoker Type 2 diabetes mellitus with diabetic neuropathy, without long-term current use of insulin (HCC) Diminished pulses in lower extremity 1 Occurrences starting 10/08/2022 until 10/08/2023 [facility] Work Phone: Comment on above: 1 Occurrences starting 10/08/2022 until 10/08/2023 End: 07-27-2023 Radiologic exam chest 2 views XR CHEST 2V FRONTAL/LAT Radiology Routine Moderate persistent asthma with acute exacerbation 1 Occurrences starting 06/27/2022 until 07/27/2023 [facility] Work Phone: Comment on above: 1 Occurrences starting 06/27/2022 until 07/27/2023 Radionuclide gastric emptying study [facility] End: 01-20-2024 SPIROMETRY BASELINE ONLY SPIROMETRY BASELINE ONLY PFT Routine Stage 2 moderate COPD by GOLD classification ([facility]) 1 Occurrences starting 12/21/2022 until 01/20/2024 [facility] Work Phone: Comment on above: 1 Occurrences starting 12/21/2022 until 01/20/2024 End: 12-04-2024 SPIROMETRY WITH DILATOR IF OBSTRUCTED SPIROMETRY WITH DILATOR IF OBSTRUCTED PFT Routine Asthma with COPD ([facility]) 1 Occurrences starting 11/05/2023 until 12/04/2024 [facility] Work Phone: Comment on above: 1 Occurrences starting 11/05/2023 until 12/04/2024 SURGICAL PATHOLOGY [facility] Work Phone: Comment on above: Release Upon Ordering for 1 Occurrences starting 02/22/2022 Urinalysis complete panel - Urine URINALYSIS, WITH MICROSCOPIC Lab Routine Lower abdominal pain Recent urinary tract infection 07/05/2022 2:03 PM EDT [facility] Work Phone: End: 08-08-2023 Us pelvic nonobstetric image dcmtn limited/f/u US FEMALE PELVIS TRANSABD LTD Radiology Routine Lower abdominal pain 1 Occurrences starting 07/09/2022 until 08/08/2023 [facility] Work Phone: Comment on above: 1 Occurrences starting 07/09/2022 until 08/08/2023 End: 08-08-2023 Us transvaginal US FEMALE PELVIS TRANSVAG Radiology Routine Lower abdominal pain 1 Occurrences starting 07/09/2022 until 08/08/2023 [facility] Work Phone: Comment on above: 1 Occurrences starting 07/09/2022 until 08/08/2023 End: 04-01-2026 XR Ankle - right AP and Lateral XR ANKLE 2V AP/LAT RIGHT Radiology Routine Acute right ankle pain 1 Occurrences starting 03/02/2025 until 04/01/2026 [facility] Comment on above: 1 Occurrences starting 03/02/2025 until 04/01/2026 XR Ankle - right AP and Lateral XR ANKLE 2V AP/LAT RIGHT Radiology Routine Acute right ankle pain 03/02/2025 4:31 PM EDT [facility] End: 03-19-2025 XR Foot - left AP and Lateral and oblique XR FOOT GENERAL 3V AP/LAT/OBL LEFT Radiology Routine Injury of toe on left foot, initial encounter 1 Occurrences starting 02/18/2024 until 03/19/2025 [facility] Work Phone: Comment on above: 1 Occurrences starting 02/18/2024 until 03/19/2025 XR Foot - left AP an d Lateral and oblique XR FOOT GENERAL 3V AP/LAT/OBL LEFT Radiology Routine Injury of toe on left foot, initial encounter 02/18/2024 3:50 PM EDT [facility] End: 04-01-2026 XR Foot - right AP and Lateral and oblique XR FOOT GENERAL 3V AP/LAT/OBL RIGHT Radiology Routine Toe pain, right 1 Occurrences starting 03/02/2025 until 04/01/2026 [facility] Work Phone: Comment on above: 1 Occurrences starting 03/02/2025 until 04/01/2026 XR Foot - right AP a nd Lateral and oblique XR FOOT GENERAL 3V AP/LAT/OBL RIGHT Radiology Routine Toe pain, right 03/02/2025 4:31 PM EDT [facility] Immunizations Immunization Date Immunization Notes Care Provider [facility] 07-23-2023 pneumococcal Conjuga te, unspecified formulation Willam Estrada MD Work Phone: [facility] Work Phone: 07-23-2023 influenza, injectabl e, quadrivalent, contains preservative Willam Estrada MD Work Phone: [facility] 07-23-2023 influenza, injectabl e, quadrivalent, preservative free Dr. Willam Estrada MD Work Phone: [facility] 07-23-2023 pneumococcal (PCV20) vaccine, 20 valent (PREVNAR 20) Willam Estrada MD Work Phone: [facility] 07-23-2023 influenza virus vaccine, unspecified formulation Willam Estrada MD Work Phone: [facility] 08-20-2022 Covid Moderna Bivale nt Booster Dr. Willam Estrada MD Work Phone: [facility] 08-07-2022 influenza, injectabl e, quadrivalent, contains preservative Mona Corrigan MD Work Phone: [facility] 08-07-2022 influenza, injectabl e, quadrivalent, preservative free Dr. Willam Estrada MD Work Phone: [facility] 08-07-2022 influenza virus vaccine, unspecified formulation Willam Estrada MD Work Phone: [facility] 04-06-2022 Covid (Moderna) Dr. Willam todd MD Work Phone: [facility] 08-04-2021 Covid (Moderna) Dr. Willam todd MD Work Phone: [facility] 08-04-2021 Influenza, injectabl e, Madin Fabiola Canine Kidney, preservative free, quadrivalent Willam Estrada MD Work Phone: [facility] 08-04-2021 influenza, seasonal, injectable Willam Estrada MD Work Phone: [facility] Work Phone: 12-15-2020 COVID-19 vaccine, fu ll dose (MODERNA) Willam Estrada MD Work Phone: [facility] 11-16-2020 COVID-19 vaccine, fu ll dose (MODERNA) Willam Estrada MD Work Phone: [facility] 10-13-2019 influenza, injectabl e, quadrivalent, contains preservative Willam Estrada MD Work Phone: [facility] Work Phone: 10-13-2019 influenza, injectabl e, quadrivalent, preservative free Dr. Willam Estrada MD Work Phone: [facility] 10-13-2019 zoster vaccine, recombinant, adjuvanted, (SHINGRIX, PF,) 50 mcg/0.5 mL injection Xr [place] Work Phone: [facility] 05-30-2018 influenza, injectabl e, quadrivalent, contains preservative Willam Estrada MD Work Phone: [facility] 05-30-2018 influenza, injectabl e, quadrivalent, preservative free Dr. Willam Estrada MD Work Phone: [facility] 05-30-2016 influenza, injectabl e, quadrivalent, contains preservative Willam Estrada MD Work Phone: [facility] 05-30-2016 influenza, injectabl e, quadrivalent, preservative free Dr. Willam Estrada MD Work Phone: [facility] 07-22-2015 influenza, injectabl e, quadrivalent, preservative free Dr. Willam Estrada Work Phone: [facility] 07-22-2015 influenza, seasonal, injectable Dr. Willam Estrada Work Phone: [facility] 07-22-2015 influenza, seasonal, injectable, preservative free Willam Estrada MD Work Phone: [facility] 06-14-2014 influenza, injectabl e, quadrivalent, preservative free Dr. Willam Estrada Work Phone: [facility] 06-14-2014 influenza, seasonal, injectable Willam Estrada MD Work Phone: [facility] 06-14-2014 influenza, seasonal, injectable, preservative free Dr. Willam Estrada MD Work Phone: [facility] 06-19-2013 influenza virus vaccine, unspecified formulation Willam Estrada MD Work Phone: [facility] 07-14-2012 influenza virus vaccine, unspecified formulation Willam Estrada MD Work Phone: [facility] 09-09-2010 pneumococcal polysaccharide vaccine, 23 valent Willam Estrada MD Work Phone: [facility] 09-09-[address] Brandy Estrada Work Phone: [facility] Work Phone: 09-09-2010 pneumococcal vaccine , unspecified formulation [facility] 03-22-2010 pneumococcal polysaccharide vaccine, 23 valent Willam Estrada MD Work Phone: [facility] 09-14-2008 tetanus and diphther ia toxoids, not adsorbed, for adult use Willam Estrada MD Work Phone: [facility] 10-11-1998 diphtheria and tetan us toxoids, adsorbed for pediatric use Willam Estrada MD Work Phone: [facility] Work Phone: 10-11-1998 tetanus immune globulin Willam Estrada MD Work Phone: [facility] Work Phone: NEGATED: Highlighted row has not occurred!08-18-2019 influenza, injectable, quadrivalent, preservative free Willam Estrada MD Work Phone: [facility] Comment on above: Deferred: Patient Re fused Payers Date Payer Category Payer Self-pay [id number] 2017 Medicare [id number] 2017 Medicaid MEDICAID [facility] MEDICAID [id number] 2017-Present [phone] [address] [place] [address] Medicaid [id number] 2017 Medicaid [id number] 2017 Medicare MEDICARE MEDICAR E A AND B [id number] 2017-Present [phone] [address] [address] [place] [address] Medicare [id number] 2017 Medicare [id number] 2017 Medicaid [id number] 2017 Medicare [id number] 2014 Unknown [id number] Unknown [id number] 2.16.840.1.817737.3.579.2.462 Unknown [id number] 2.16.840.1.198519.3.579.2.462 Unknown [id number] 2.16.840.1.873924.3.579.2.462 Unknown [id number] 2.16.840.1.652117.3.579.2.462 Unknown [id number] 2.16.840.1.875028.3.579.2.462 Unknown [id number] 2.16.840.1.984982.3.579.2.462 Unknown [id number] 2.16.840.1.855514.3.579.2.462 Unknown [id number] 2.16.840.1.286197.3.579.2.462 Unknown [id number] 2.16.840.1.010481.3.579.2.462 Unknown [id number] 2.16.840.1.318527.3.579.2.462 Unknown [id number] 2.16.840.1.030791.3.579.2.462 Unknown [id number] 2.16.840.1.053412.3.579.2.462 Unknown [id number] 2.16.840.1.102838.3.579.2.462 Unknown [id number] 2.16.840.1.774073.3.579.2.462 Unknown [id number] 2.16.840.1.475330.3.579.2.462 Unknown [id number] 2.16.840.1.732730.3.579.2.462 Unknown [id number] 2.16.840.1.976956.3.579.2.462 Unknown [id number] 2.16.840.1.096668.3.579.2.462 Unknown [id number] 2.16.840.1.196156.3.579.2.462 Unknown [id number] 2.16.840.1.917782.3.579.2.462 Unknown [id number] 2.16840.1.725776.3.579.2.462 Unknown [id number] 2.840.1.755861.3.579.2.462 Unknown [id number] 2.840.1.956986.3.579.2.462 Unknown [id number] 2.840.1.643447.3.579.2.462 Unknown [id number] 2.840.1.184056.3.579.2.462 Unknown [id number] 2.840.1.106879.3.579.2.462 Unknown [id number] 2.840.1.347437.3.579.2.462 Unknown [id number] 2.840.1.311766.3.579.2.462 Unknown [id number] 2.840.1.369316.3.579.2.462 Unknown [id number] 2.840.1.501032.3.579.2.462 Unknown [id number] 2.16840.1.851271.3.579.2.462 Unknown [id number] 2.16.840.1.209801.3.579.2.462 Unknown [id number] 2.16840.1.087269.3.579.2.462 Unknown [id number] 2.840.1.848838.3.579.2.462 Unknown [id number] 2..840.1.175538.3.579.2.462 Unknown [id number] 2.16.840.1.266900.3.579.2.462 Unknown [id number] 2.16.840.1.683313.3.579.2.462 Unknown [id number] 2.840.1.351459.3.579.2.462 Social History Date Type Detail Facility Start: 11-10-2021 End: 05-07-2024 Tobacco smoking status NHIS Smokes tobacco daily [facility] History of tobacco use Cigarette Smoker C [facility] Start: 12-04-2021 End: 03-02-2025 Alcohol intake Current non-drinker of alcohol (finding) [facility] Start: 05-15-2020 End: 08-25-2022 History SDOH Alcohol Frequency 1 [facility] Start: 05-15-2020 End: 08-25-2022 History SDOH Social Connections Phone 2 [facility] Start: 05-15-2020 End: 08-25-2022 History SDOH Social Connections Living 5 [facility] Start: 05-15-2020 End: 08-25-2022 History SDOH Physical Activity DPW 0 [facility] Start: 05-15-2020 End: 08-25-2022 History SDOH Stress 4 [facility] Start: 05-15-2020 End: 08-25-2022 History SDOH Financial 3 [facility] Start: 05-14-2020 Education 12 [facility] Start: 1960 Sex Assigned At Not on file [facility] Start: 07-18-2020 End: 08-07-2022 Exposure to SARS-CoV-2 (event) Not sure [facility] Start: 12-14-2021 End: 11-26-2023 Tobacco smoking status RIIS Unknown if ever smoked [facility] Start: 08-21-2021 None [facility] Start: 08-21-2021 Alone [facility] Start: 04-25-2020 Cigarettes [facility] Start: 1960 Sex Assigned At Female [facility] Start: 03-30-2022 End: 04-09-2022 Exposure to SARS-CoV-2 (event) Unable to assess [facility] Work Phone: Start: 11-10-2021 End: 01-24-2023 Cigarettes smoked current (pack per day) - Reported 1 [facility] Start: 11-10-2021 End: 05-07-2024 Tobacco use and exposure Smokeless tobacco non-user [facility] Start: 08-07-2022 Tobacco Comment Working on smoking cessation [facility] Start: 10-08-2022 Tobacco Comment Working on smoking cessation. Trying every day to quit but not happening yet. [facility] Start: 08-25-2022 End: 01-24-2023 Social connection and isolation panel [facility] Do you belong to any clubs or organizations such as islam groups, unions, fraternal or athletic groups, or school groups? No [facility] Are you now , , , , never or living with a partner? [facility] How often to you hav e a drink containing alcohol? Never [facility] How many standard dr inks containing alcohol do you have on a typical day? Patient does not drink [facility] Do you feel stress - tense, restless, nervous, or anxious, or unable to sleep at night because your mind is troubled all the time - these days [OSQ] Not at all [facility] (I/We) worried wheth er (my/our) food would run out before (I/we) got money to buy more. Never true [facility] Start: 04-03-2023 Tobacco Comment Working on smoking cessation. Trying every day to quit but not happening yet. Still working--1PPD (April 03, 2023) [facility] Start: 02-06-2022 Gender identity Identifies as female gender (finding) [facility] Start: 02-06-2022 Sexual orientation Heterosexual (finding) [facility] How hard is it for y ou to pay for the very basics like food, housing, medical care, and heating Somewhat hard [facility] Do you feel stress - tense, restless, nervous, or anxious, or unable to sleep at night because your mind is troubled all the time - these days [OSQ] Rather much [facility] (I/We) worried wheth er (my/our) food would run out before (I/we) got money to buy more. Sometimes true [facility] Start: 04-20-2024 Tobacco Comment Working on smoking cessation. Trying every day to quit and down to 8-9 cigarettes daily and quit smoking in the house [facility] Start: 07-30-2017 Tobacco Comment 1 ppd [facility] Start: 11-25-2024 End: 12-24-2024 Sex Female (finding) [facility] Medical Equipment Procedure Code Equipment Code Equipment Original Text Equipment Identifier Dates [id number], [id number], [id number], [id number], [id number], [id number], [id number] Start: 06-23-2019 End: 11-18-2024 Comment on above: Test blood sugars tw ice a day DX: E11.65 Insulin: No Use as instructed Test blood sugar(s) 2 times daily. Dx: Type 2 DM - Uncontrolled E1165 Insulin: No Goals Date Patient Goal Desired Activity /State Personal health goal Comment on above: Formatting of this n ote might be different from the original. Continue to feel well overall. Formatting of this n ote might be different from the original. Continue to feel well/ remain mobile Personal health goal Personal health goal Comment on above: Formatting of this n ote might be different from the original. Patient has the following general goals: Two PCP visits annually Patient Stated goal: -improve mobility -get a ground floor apartment Patient will meet these goals by 06/07/24 (describe interventions done by PCC) Personal health goal Comment on above: Formatting of this n ote might be different from the original. Last admission/ED visit : ED visit [place]: 05/08/24 Formatting of this n ote might be different from the original. Meet this goal by 06/07/24 Formatting of this n ote might be different from the original. This patient has the following Chronic Obstructive Pulmonary Disease Health Maintenance goals: Two PCP visits annually and Pulmonology visit annually This patient has the following education goals: COPD Core Education Packet, COPD Action Plan/Zones, Understanding COPD, How to use MDI, COPD LISA Education - COPD About, COPD LISA Education - Chronic Obstructive Pulmonary Disease, and COPD LISA Education - Smoking Cessation Patient will meet these goals by 09/08/24 (describe interventions done by PCC) Personal health goal Comment on above: Formatting of this n ote might be different from the original. Continue to feel well overall. Functional Status Date Assessment Result Facility 08-05-2024 Functional status Ambulates [facility] Work Phone: 04-30-2020 Are you deaf, or do you have serious difficulty hearing No 04/30/2020 1:42 PM EDT Sabino Somers, RN No [facility] 04-30-2020 Are you blind, or do you have serious difficulty seeing, even when wearing glasses No 04/30/2020 1:42 PM EDT Sabino Somers, RN No [facility] 04-30-2020 Do you have serious difficulty walking or climbing stairs No 04/30/2020 1:42 PM EDT Sabino Somers, HOWARD No [facility] 04-30-2020 Do you have difficul ty dressing or bathing No 04/30/2020 1:42 PM EDT Sabino Somers, RN No [facility] 04-30-2020 Because of a physica l, mental, or emotional condition, do you have difficulty doing errands alone such as visiting a physician's office or shopping No 04/30/2020 1:42 PM EDT Sabino Somers, HOWARD No [facility] Mental Status Date Assessment Result Facility 08-09-2024 Cognitive function Level Of Cons ciousness Awake;Alert;Appropriate;Fol lows Commands [facility] Work Phone: 08-05-2024 Cognitive function Voice/Name [facility] Work Phone: 11-28-2023 Cognitive function Voice/Name [facility] Work Phone: 09-20-2023 Cognitive function Level Of Cons ciousness Awake;Alert;Appropriate;Fol lows Commands [facility] Work Phone: 07-01-2023 Cognitive function Touch/Shaking [facility] Work Phone: 06-27-2023 Cognitive function Level Of Cons ciousness Awake;Alert;Appropriate;Fol lows Commands [facility] Work Phone: 08-24-2022 Cognitive function Level Of Cons ciousness Awake;Alert;Appropriate;Fol lows Commands [facility] Work Phone: 04-30-2020 Because of a physica l, mental, or emotional condition, do you have serious difficulty concentrating, remembering, or making decisions No 04/30/2020 1:42 PM EDT Sabino Somers, HOWARD No [facility] Clinical Notes 04-27-2020 to 03-08-2025 Telephone Encounter - Derick Goddard LPN - 03/08/2025 3:57 PM EDTTelephone Encounter - Derick Goddard LPN - 03/08/2025 3:57 PM Balbina Welch RT(R) - 03/02/2025 4:10 PM EDTPatient Instructions Note Date & Type Note Facility 03-08-2025 Telephone encounter Note Prescription Refill Information The patient has been identified by name and date of : Yes Caregiver verified no other encounters exist for this prescription request: Yes Caregiver confirmed with patient/requestor that no other refills are due, in the near future, with this provider at this time: Yes The last office visit in the department: 11/18/24 Does the patient have a future office visit with this provider/department: Yes 03/24/25 Requested Prescriptions Pending Prescriptions Disp Refills furosemide (LASIX) 20 mg tablet 90 tablet 0 Sig: Take 1 tablet by mouth once daily. Derick Goddard LPN March 08, 2025 3:57 PM [facility] 03-08-2025 Miscellaneous Notes Prescription Refill Information The patient has been identified by name and date of : Yes Caregiver verified no other encounters exist for this prescription request: Yes Caregiver confirmed with patient/requestor that no other refills are due, in the near future, with this provider at this time: Yes The last office visit in the department: 11/18/24 Does the patient have a future office visit with this provider/department: Yes 03/24/25 Requested Prescriptions Pending Prescriptions Disp Refills furosemide (LASIX) 20 mg tablet 90 tablet 0 Sig: Take 1 tablet by mouth once daily. Derick Goddard LPN March 08, 2025 3:57 PM documented in this encounter [facility] 03-02-2025 History of Presen t illness Narrative Radiology Service Progress Note PATIENT NAME: Garland De Santiago DATE OF SERVICE: March 02, 2025 TIME: 4:18 PM PATIENT IDENTITY VERIFICATION COMPLETED USING TWO (2) IDENTIFIERS: Name and Date of confirmed by patient verbally. FALL SCREENING: Has the patient had 2 falls in the last year or 1 fall with injury or currently using an Ambulatory Assistive Device (Walker, Cane, Wheelchair, Crutches, etc.)? No PATIENT GENDER DATA: Assigned female at . status: : No status: NO. PATIENT RELEVANT IMPLANT DATA REVIEWED: Yes PATIENT PRESENTS WITH AN IMPLANTABLE OR ATTACHED CHERRY PICKER OPERATOR: No RADIOLOGY DEPARTMENT: General X-ray: Exam(s) Completed: Lower Extremity X-Ray(s): Ankle, Right and Foot, Right PERIPHERAL IV DATA: Not applicable SIGNED BY: RT Davon(R) March 02, 2025 4:18 PM documented in this encounter [facility] 03-02-2025 Note [facility] 03-02-2025 Note [facility] 03-02-2025 History of Presen t illness Narrative Images from the original note were not included. Heart[facility] Vascular [facility] Thoracic [place] DEPARTMENT OF VASCULAR SURGERY OUTPATIENT VISIT DATE March 02, 2025 OUTPATIENT VISIT TYPE CONSULTATION SERVICE DATE: 03/02/2025 SERVICE TIME: 3:25 PM PRIMARY CARE PHYSICIAN: Willam Estrada MD REFERRING PROVIDER: Leila Rubi [address] [facility] [address] Consult requested for an opinion regarding the evaluation and treatment of the above. My final impression and recommendations will be communicated back to the requesting physician by way of the shared medical record or letter via [place] mail. CHIEF COMPLAINT: Aortic Ectasia HISTORY OF PRESENT ILLNESS: Vascular consultation at the request of Dr. Leila Rubi. A copy of this consultation note will be provided to the requesting physician by way of shared Medical record or letter to requesting physician via US mail. Ms. De Santiago is a 64 year old female who is seen today for possible aortic ectasia. She has a family history of aneurysmal disease. She denies significant claudication. She does admit to right lateral foot and 5th toe pain from recent trauma to toe. Denies focal neurologic deficits. Her paternal side of the family has a significant AAA history- her father survived a ruptured aneurysm. PAST MEDICAL HISTORY Diagnosis Date Allergic rhinitis, cause unspecified 02/10/2007 Anxiety Arthritis Asthma ([facility]) 02/10/2007 Depression Psychiatrist managing (Dr. Bedolla) DM type 2 (diabetes mellitus, type 2) ([facility]) Essential hypertension 05/23/2006 Hemorrhage of gastrointestinal tract, unspecified 12/13/2011 Had bleeding hemorrhoids in 2011; normal colonoscopy Internal hemorrhoids without mention of complication 12/13/2011 Mixed hyperlipidemia 05/23/2006 Obesity (BMI 30.0-34.9) YARY (obstructive sleep apnea) Uses BiPAP occasionally Other nonspecific abnormal finding 05/23/2006 CK Elevation Snoring PAST SURGICAL HISTORY Procedure Laterality Date ADENOIDECTOMY PRIMARY <AGE 12 Adenoidectomy ANTERIOR COLPORRAPHY RPR CYSTOCELE W/CYSTO Cystocele repair APPENDECTOMY APPENDECTOMY HX ARTHRP KNE CONDYLE&PLATU MEDIAL&LAT COMPARTMENTS 07/10/2015 right BACK SURGERY HX COLONOSCOPY 02/22/2022 COLONOSCOPY FLX DX W/COLLJ SPEC WHEN PFRMD 12/13/2011 [facility] VARICIES INJ 02/22/2022 ESOPHAGOGASTRODUODENOSCOPY TRANSORAL DIAGNOSTIC 02/09/2016 EGD INCISE FINGER TENDON SHEATH Right 08/10/2021 Right ring trigger finger release JOINT REPLACEMENT HX LAPS ABD PRTM&OMENTUM DX W/WO SPEC BR/WA SPX Laparoscopy LAPS SURG CHOLECYSTECTOMY W/CHOLANGIOGRAPHY 10/07/2006 LIG/TRNSXJ FLP TUBE ABDL/VAG APPR UNI/BI Tubal ligation PAST SURGICAL HISTORY OF 06/22/2010 right knee arthroscopy- by Dr Dawson ([facility]) PAST SURGICAL HISTORY OF 04/27/2020 low back surgery at [facility];s/p L4 laminectomy, decompression of L4-5 canal stenosis with bilateral L4, L5 root foraminotomies TONSILLECTOMY PRIMARY/SECONDARY <AGE 12 Tonsillectomy VAGINAL HYSTERECTOMY UTERUS 250 GM/< Hysterectomy, vaginal for menorrhagia SOCIAL HISTORY: Social History Tobacco Use Smoking status: Every Day Current packs/day: 1.50 Average packs/day: 1.5 packs/day for 36.0 years (54.0 ttl pk-yrs) Types: Cigarettes Smokeless tobacco: Never Tobacco comments: Working on smoking cessation. Trying every day to quit and down to 8-9 cigarettes daily and quit smoking in the house Vaping Use Vaping status: Never Used Substance Use Topics Alcohol use: No Drug use: No FAMILY HISTORY Problem Relation Age of Onset Hypertension Mother history of glaucoma Cervical Cancer Mother Asthma Mother Heart Father CO x 2 Cancer Father Lung, metastatic to bone, age 77 other (aortic aneurysm) Father 50 Colon Polyps Sister Thyroid Sister Hypothyroidism Thyroid Sister Cancer Sister Lung, LLL. Resected. No Known Problems Daughter No Known Problems Son MEDICATIONS: furosemide (LASIX) 20 mg tablet Take 1 tablet by mouth once daily. fluticasone-salmeterol (ADVAIR) 500-50 mcg/dose dsdv Inhale 1 Puff as instructed two times a day. albuterol (PROVENTIL) 2.5 mg /3 mL (0.083 %) nebulizer solution Use 3 mL via nebulizer every 4 hours as needed for wheezing/shortness of breath. ALPRAZolam (XANAX) 0.5 mg tablet Take 1 tablet by mouth at bedtime as needed for up to 120 days. Patient should start on December 10, 2024. blood sugar diagnostic (TRUE METRIX GLUCOSE TEST STRIP) test strip Test blood sugars twice a day DX: E11.65 Insulin: No Use as instructed gabapentin (NEURONTIN) 300 mg capsule Take 2 capsules by mouth two times a day for 180 days. Patient should start on December 10, 2024. glipiZIDE (GLUCOTROL) 5 mg tablet Take 1 tablet by mouth once daily. May take extra half to whole pill daily as needed for blood sugar over 200 ipratropium (ATROVENT) 0.02 % nebulizer solution Use 2.5 mL via nebulizer four times a day as needed. Unit dose pack of [address] (PROTONIX) 20 mg tablet Take 1 tablet by mouth two times a day. Take on empty stomach, 1/2 hr before meal. As directed potassium chloride (K-TAB) 10 mEq tablet Take 1 tablet by mouth daily with breakfast. amLODIPine (NORVASC) 5 mg tablet Take 5 mg by mouth once daily. albuterol HFA (VENTOLIN HFA) 90 mcg/actuation inhaler Inhale 2 Puffs as instructed every 4 hours as needed. carvedilol (COREG) 25 mg tablet Take 25 mg by mouth two times a day with meals. lisinopril (ZESTRIL) 20 mg tablet Take 1 tablet by mouth two times a day. fluticasone (FLONASE) 50 mcg/actuation nasal spray Use 2 Sprays in each nostril once daily as needed for cold/allergy symptoms. Rinse mouth after use. Alpha Lipoic Acid 600 mg cap Take 600 mg by mouth once daily. ibuprofen (MOTRIN) 600 mg tablet Take 1 tablet by mouth two times a day as needed for pain. COVID-19 antigen test (COVID-19 AT-HOME TEST) kit Use as directed for signs and symptoms of COVID busPIRone (BUSPAR) 15 mg tablet Take 0.5 tablets by mouth two times a day. gemfibrozil (LOPID) 600 mg tablet Take 1 tablet by mouth two times a day. metFORMIN ER (GLUCOPHAGE XR) 500 mg 24 hr tablet Take 1 tablet by mouth two times a day before meals. sertraline (ZOLOFT) 100 mg tablet Take 2 tablets by mouth once daily. traZODone (DESYREL) 100 mg tablet Take 1 tablet by mouth daily at bedtime. BIPAP Initiate BiPAP @ 20/14 cm of water with heated humidification. Ti Max 1.0, Ti Min 0.3, trigger medium, cycle high. Mask (medium AirFit F10 full face mask or per patient preference) optional chin strap (if indicated) , filters, tubing, humidifier and lifetime supplies. Nebulizer and Compressor For Neb Use for albuterol and ipratropium nebulizer treatments every 4 hours as needed Lancets lancets Test blood sugar(s) 2 times daily. Dx: Type 2 DM - Uncontrolled E11.65 Insulin: No Blood-Glucose Meter monitoring kit Insurance covered or per patient choice. Test blood sugar twice daily plus as needed for symptoms of blood sugars being too high or low. Dx: Type 2 DM - Uncontrolled E11.65 Insulin:No Nebulizer NEBULIZER FOR HOME USE. DX: J45.42 ALLERGIES: ALLERGIES Allergen Reactions Amlodipine Intolerance Increased lower extremity swelling Cephalosporins Rash Dilaudid [Hydromorp* Mental Status Change Doxycycline GI Upset Sharp pains in stomach Dust Mites Omnicef [Cefdinir] Hives Paxil [Paroxetine] Intolerance excessive sweating Penicillins Hives, Other: See Comments Any medication with penicillin in it. Had been given amoxicillin in 2011 and had reaction Given test dose of 2cc's on 08/17/2019 causing sever flushing along with hypotension Prednisone Intolerance Elevated BS, ER Prozac [Fluoxetine * Mental Status Change, Diarrhea Pseudoephedrine Intolerance Heart racing Vicodin [Hydrocodon* GI Upset REVIEW of SYSTEM: Constitutional: Negative for significant weight loss and fever, Positive for fatigue HEENT: Negative for significant ear problems or hearing loss and nasal discharge or nose bleeds, Head Positive for headache , Eyes Positive for recent change in vision Respiratory: Positive for chronic cough and shortness of breath on exertion Cardiovascular: Negative for chest pain and palpitations and Positive for leg swelling Gatrointestinal: Positive for abdominal discomfort and blood in stools Genitourinary: Positive for frequency Musculoskeletal: Positive for back pain and joint pain Endocrine: Positive for heat intolerance Hematology/Lymphatic: Negative for prolonged bleeding, bruising easily or swollen nodes Neurologic: No history or headaches, syncope, paralysis, seizures or tremors Integumentary: Negative for lesions, rash, and itching. PHYSICAL EXAM: VITALS: There were no vitals taken for this visit. General: Alert and oriented Integumentary: Normal color, no rash, no lesions. HEENT: EOM, pupils equal, round and reactive. Cardiovascular: Normal S1 & S2, no rubs, murmurs or gallops. No JVD., Pulse regular. Lungs: Normal breath sounds, no wheezes or crackles. Abdomen: non-distended Extremities: No deformity, no edema or tenderness, no joint swelling or clubbing. Right 5th toe bruising, tender Neurological: Normal cognition and motor skills. Vascular: Posterior Tibial Right: Normal - Left: Normal Dorsalis Pedal Right: Normal - Left: Normal Diagnostic tests reviewed for today's visit: Most recent labs Most recent imaging CT low dose chest without contrast- no significant aneurysm CT from [facility]- no evidence of AAA Echo- normal aorta noted [id number]- normal IMPRESSION: Ms. De Santiago is a 64 year old female with possible aortic ectasia . PLAN and RECOMMENDATIONS: Continue Medical Management Will follow up next year= she will message after CT chest performed No acute intervention required at this time SIGNATURE: Jonnathan Mckeon DO PATIENT NAME: Garland De Santiago DATE: March 02, 2025 TIME: 3:25 PM documented in this encounter [facility] 02-27-2025 Telephone encounter Note Patient given results and verbalized understanding of instructions given. Frieda Blake MA [facility] 02-27-2025 Miscellaneous Notes Patient given results and verbalized understanding of instructions given. Frieda Blake MA Left message for patient to return call. Frieda Blake MA Please call and let patient know that the urine culture did not grow any bacteria. If symptoms are persistent please follow-up with primary care documented in this encounter [facility] 02-27-2025 Telephone encounter Note Left message for patient to return call. Frieda Blake MA [facility] 02-27-2025 Telephone encounter Note Please call and let patient know that the urine culture did not grow any bacteria. If symptoms are persistent please follow-up with primary care [facility] Work Phone: 02-25-2025 Instructions Martha Diop APRN.HEIDY - 02/25/2025 3:16 PM EDT 1. Urinary frequency (R35.0) 2. History of urinary tract infection (Z87.440) - Urinalysis performed today is completely normal, with no signs of infection. - Urine sample sent to the lab for culture; results expected tomorrow. - Advised patient to drink plenty of fluids and stay hydrated. - Discussed potential for starting antibiotics if culture is positive; patient agreed to wait for culture results before initiating treatment. - Patient understands to check MyChart for results and will be notified of culture outcome. 3. Asthma, unspecified asthma severity, unspecified whether complicated, unspecified whether persistent (HCC) (J45.909) - Mild wheezing noted on auscultation. - Patient has a nebulizer and inhaler at home. - No fever reported. - Continue current asthma management with nebulizer and inhaler as needed. - Stay well hydrated by drinking plenty of fluids. - A urine culture was sent; check MyChart tomorrow for the results. - If bacteria grow, an antibiotic will be called in for you; if the culture is negative, you will not need to start antibiotics. documented in this encounter [facility] 02-25-2025 Note [facility] 02-25-2025 History of Presen t illness Narrative [facility] Subjective Garlandsuzette De Santiago is a 64 year old female. Patient presents with: UTI: Frequency, urgency, burning x3 weeks, fatigue and chest tightness UTI Dysuria: - Burning sensation in the urethral area, exacerbated during micturition. - Denies pruritus or rash. - Denies sexual activity for the past 20 years. - Previous history of Klebsiella UTI leading to sepsis and acidosis, requiring a week-long hospitalization. Back Pain: - Chronic back pain, possibly related to a known bulging disc. - Reports generalized myalgia. Suprapubic Pain: - Onset of suprapubic pain today. Asthma: - History of asthma with intermittent wheezing. - Uses a nebulizer and inhaler. - Reports recent episodes of chest tightness. - Denies fever; experiences subjective feverish sensations without elevated temperature. Review of Systems Genitourinary: Positive for dysuria. Constitutional: (+) malaise, (-) fever Respiratory: (+) chest tightness, (+) wheezing Genitourinary: (+) dysuria, (+) urinary frequency, (+) suprapubic pain Skin: (-) pruritus, (-) rash Objective BP 119/74 Pulse 81 Temp 36.9 C (98.4 F) Resp 18 SpO2 97% PAST MEDICAL HISTORY Diagnosis Date Allergic rhinitis, cause unspecified 02/10/2007 Anxiety Arthritis Asthma ([facility]) 02/10/2007 Depression Psychiatrist managing (Dr. Bedolla) DM type 2 (diabetes mellitus, type 2) ([facility]) Essential hypertension 05/23/2006 Hemorrhage of gastrointestinal tract, unspecified 12/13/2011 Had bleeding hemorrhoids in 2011; normal colonoscopy Internal hemorrhoids without mention of complication 12/13/2011 Mixed hyperlipidemia 05/23/2006 Obesity (BMI 30.0-34.9) YARY (obstructive sleep apnea) Uses BiPAP occasionally Other nonspecific abnormal finding 05/23/2006 CK Elevation Snoring PAST SURGICAL HISTORY Procedure Laterality Date ADENOIDECTOMY PRIMARY <AGE 12 Adenoidectomy ANTERIOR COLPORRAPHY RPR CYSTOCELE W/CYSTO Cystocele repair APPENDECTOMY APPENDECTOMY HX ARTHRP KNE CONDYLE&PLATU MEDIAL&LAT COMPARTMENTS 07/10/2015 right BACK SURGERY HX COLONOSCOPY 02/22/2022 COLONOSCOPY FLX DX W/COLLJ SPEC WHEN PFRMD 12/13/2011 Colonoscopy repeat 10 years EGD W/O [facility] SPEC VARICIES INJ 02/22/2022 ESOPHAGOGASTRODUODENOSCOPY TRANSORAL DIAGNOSTIC 02/09/2016 EGD INCISE FINGER TENDON SHEATH Right 08/10/2021 Right ring trigger finger release JOINT REPLACEMENT HX LAPS ABD PRTM&OMENTUM DX W/WO SPEC BR/WA SPX Laparoscopy LAPS SURG CHOLECYSTECTOMY W/CHOLANGIOGRAPHY 10/07/2006 LIG/TRNSXJ FLP TUBE ABDL/VAG APPR UNI/BI Tubal ligation PAST SURGICAL HISTORY OF 06/22/2010 right knee arthroscopy- by Dr Dawson ([facility]) PAST SURGICAL HISTORY OF 04/27/2020 low back surgery at [facility];s/p L4 laminectomy, decompression of L4-5 canal stenosis with bilateral L4, L5 root foraminotomies TONSILLECTOMY PRIMARY/SECONDARY <AGE 12 Tonsillectomy VAGINAL HYSTERECTOMY UTERUS 250 GM/< Hysterectomy, vaginal for menorrhagia ALLERGIES Amlodipine, Cephalosporins, Dilaudid [Hydromorphone (Bulk)], Doxycycline, Dust Mites, Omnicef [Cefdinir], Paxil [Paroxetine], Penicillins, Prednisone, Prozac [Fluoxetine Hcl], Pseudoephedrine, and Vicodin [Hydrocodone-Acetaminophen] MEDICATIONS furosemide (LASIX) 20 mg tablet Take 1 tablet by mouth once daily. fluticasone-salmeterol (ADVAIR) 500-50 mcg/dose dsdv Inhale 1 Puff as instructed two times a day. albuterol (PROVENTIL) 2.5 mg /3 mL (0.083 %) nebulizer solution Use 3 mL via nebulizer every 4 hours as needed for wheezing/shortness of breath. ALPRAZolam (XANAX) 0.5 mg tablet Take 1 tablet by mouth at bedtime as needed for up to 120 days. Patient should start on December 10, 2024. blood sugar diagnostic (TRUE METRIX GLUCOSE TEST STRIP) test strip Test blood sugars twice a day DX: E11.65 Insulin: No Use as instructed gabapentin (NEURONTIN) 300 mg capsule Take 2 capsules by mouth two times a day for 180 days. Patient should start on December 10, 2024. glipiZIDE (GLUCOTROL) 5 mg tablet Take 1 tablet by mouth once daily. May take extra half to whole pill daily as needed for blood sugar over 200 ipratropium (ATROVENT) 0.02 % nebulizer solution Use 2.5 mL via nebulizer four times a day as needed. Unit dose pack of [address] (PROTONIX) 20 mg tablet Take 1 tablet by mouth two times a day. Take on empty stomach, 1/2 hr before meal. As directed potassium chloride (K-TAB) 10 mEq tablet Take 1 tablet by mouth daily with breakfast. amLODIPine (NORVASC) 5 mg tablet Take 5 mg by mouth once daily. albuterol HFA (VENTOLIN HFA) 90 mcg/actuation inhaler Inhale 2 Puffs as instructed every 4 hours as needed. carvedilol (COREG) 25 mg tablet Take 25 mg by mouth two times a day with meals. lisinopril (ZESTRIL) 20 mg tablet Take 1 tablet by mouth two times a day. fluticasone (FLONASE) 50 mcg/actuation nasal spray Use 2 Sprays in each nostril once daily as needed for cold/allergy symptoms. Rinse mouth after use. Alpha Lipoic Acid 600 mg cap Take 600 mg by mouth once daily. ibuprofen (MOTRIN) 600 mg tablet Take 1 tablet by mouth two times a day as needed for pain. COVID-19 antigen test (COVID-19 AT-HOME TEST) kit Use as directed for signs and symptoms of COVID busPIRone (BUSPAR) 15 mg tablet Take 0.5 tablets by mouth two times a day. gemfibrozil (LOPID) 600 mg tablet Take 1 tablet by mouth two times a day. metFORMIN ER (GLUCOPHAGE XR) 500 mg 24 hr tablet Take 1 tablet by mouth two times a day before meals. sertraline (ZOLOFT) 100 mg tablet Take 2 tablets by mouth once daily. traZODone (DESYREL) 100 mg tablet Take 1 tablet by mouth daily at bedtime. BIPAP Initiate BiPAP @ 20/14 cm of water with heated humidification. Ti Max 1.0, Ti Min 0.3, trigger medium, cycle high. Mask (medium AirFit F10 full face mask or per patient preference) optional chin strap (if indicated) , filters, tubing, humidifier and lifetime supplies. Nebulizer and Compressor For Neb Use for albuterol and ipratropium nebulizer treatments every 4 hours as needed Lancets lancets Test blood sugar(s) 2 times daily. Dx: Type 2 DM - Uncontrolled E11.65 Insulin: No Blood-Glucose Meter monitoring kit Insurance covered or per patient choice. Test blood sugar twice daily plus as needed for symptoms of blood sugars being too high or low. Dx: Type 2 DM - Uncontrolled E11.65 Insulin:No Nebulizer NEBULIZER FOR HOME USE. DX: J45.42 FAMILY HISTORY Problem Relation Age of Onset Hypertension Mother history of glaucoma Cervical Cancer Mother Asthma Mother Heart Father CO x 2 Cancer Father Lung, metastatic to bone, age 77 other (aortic aneurysm) Father 50 Colon Polyps Sister Thyroid Sister Hypothyroidism Thyroid Sister Cancer Sister Lung, LLL. Resected. No Known Problems Daughter No Known Problems Son Social History Tobacco Use Smoking status: Every Day Current packs/day: 1.50 Average packs/day: 1.5 packs/day for 36.0 years (54.0 ttl pk-yrs) Types: Cigarettes Smokeless tobacco: Never Tobacco comments: Working on smoking cessation. Trying every day to quit and down to 8-9 cigarettes daily and quit smoking in the house Vaping Use Vaping status: Never Used Substance Use Topics Alcohol use: No Drug use: No Physical Exam Vitals and nursing note reviewed. Constitutional: General: She is not in acute distress. Appearance: Normal appearance. She is not ill-appearing. Cardiovascular: Rate and Rhythm: Normal rate and regular rhythm. Heart sounds: Normal heart sounds. Pulmonary: Effort: Pulmonary effort is normal. No respiratory distress. Breath sounds: Wheezing present. No rales. Abdominal: General: There is no distension. Palpations: Abdomen is soft. There is no mass. Tenderness: There is no abdominal tenderness. There is no right CVA tenderness, left CVA tenderness or guarding. Skin: General: Skin is warm and dry. Neurological: Mental Status: She is alert. General: No acute distress. CV: Heart sounds normal. Resp: Wheezing. Back: Tenderness. : Suprapubic tenderness. {1. Urinary frequency (R35.0) 2. History of urinary tract infection (Z87.440) - Urinalysis performed today is completely normal, with no signs of infection. - Urine sample sent to the lab for culture; results expected tomorrow. - Advised patient to drink plenty of fluids and stay hydrated. - Discussed potential for starting antibiotics if culture is positive; patient agreed to wait for culture results before initiating treatment. - Patient understands to check MyChart for results and will be notified of culture outcome. 3. Asthma, unspecified asthma severity, unspecified whether complicated, unspecified whether persistent (HCC) (J45.909) - Mild wheezing noted on auscultation. - Patient has a nebulizer and inhaler at home. - No fever reported. - Continue current asthma management with nebulizer and inhaler as needed. - Follow-up with your PCP in 3-5 days if symptoms have not improved or sooner if symptoms worsen - Discussed red flags and need for immediate medical evaluation if any occur. - Discussed supportive care treatment with fluids, rest and analgesia. - Discussed expected course of illness Martha Diop APRN.PARTS DEPARTMENT MANAGER and Recording using [employer] software for draft documentation of the visit was discussed with the patient/authorized jewelry sales representative; all questions welcomed and answered. Patient/authorized jewelry sales representative agreed to proceed Disposition The patient was discharged. Procedures documented in this encounter [facility] 01-12-2025 Note [facility] 01-12-2025 History of Presen t illness Narrative This note was created using [employer]. Subjective Garland De Santiago is a 64 year old female. Patient is a 64-year-old female who complains of urinary urgency and frequency that she has been experiencing for the past 4 days. Patient denies dysuria but does describe mild discomfort. Patient reports no fever but states she has felt hot. Patient denies hematuria, flank pain, nausea or other symptoms. Patient does have an extensive history of urinary tract infection and states that her current symptoms are consistent with same. Patient also reports increased episodes of wheezing with mild congestion. Patient does have a history of asthma and borderline COPD. Patient does have a history of heavy tobacco use and smokes 1-1/2 pack cigarettes per day. Patient is followed by Dr. Mona Corrigan and states that she has an appointment with the office next week. Patient states that she has a good supply of her inhalation medications and does not require refills of same at this time. Review of Systems Respiratory: Positive for wheezing. Genitourinary: Positive for dysuria, frequency and urgency. All other systems reviewed and are negative. Objective BP 160/88 Pulse 73 Temp 36.4 C (97.6 F) (Tympanic) Resp 18 Wt 88.1 kg (194 lb 3.6 oz) SpO2 98% BMI 31.35 kg/m Physical Exam Vitals and nursing note reviewed. Constitutional: Appearance: Normal appearance. She is normal weight. HENT: Head: Normocephalic and atraumatic. Right Ear: Tympanic membrane, ear canal and external ear normal. Left Ear: Tympanic membrane, ear canal and external ear normal. Nose: Nose normal. Mouth/Throat: Mouth: Mucous membranes are moist. Pharynx: Oropharynx is clear. Eyes: Extraocular Movements: Extraocular movements intact. Conjunctiva/sclera: Conjunctivae normal. Pupils: Pupils are equal, round, and reactive to light. Cardiovascular: Rate and Rhythm: Normal rate and regular rhythm. Pulses: Normal pulses. Heart sounds: Normal heart sounds. Pulmonary: Effort: Pulmonary effort is normal. No respiratory distress. Breath sounds: Normal breath sounds. No stridor. No wheezing, rhonchi or rales. Comments: Lungs are clear to auscultation throughout with no wheezing, crackles or stridor noted. Respiratory effort is relaxed and pulse oximeter saturation is 98% on room air. Musculoskeletal: Cervical back: Normal range of motion and neck supple. Skin: General: Skin is warm and dry. Capillary Refill: Capillary refill takes less than 2 seconds. Neurological: General: No focal deficit present. Mental Status: She is alert and oriented to person, place, and time. Psychiatric: Mood and Affect: Mood normal. Behavior: Behavior normal. Thought Content: Thought content normal. Judgment: Judgment normal. Assessment and Plan Physical exam findings as noted above. Urinalysis is completely negative with no evidence of leukocyte esterase, nitrite, protein or blood. Specific gravity is 1.015 and pH 6.0. Given the patient's history of recurrent UTI, urine culture was ordered and the patient was advised that results will be available within the next 1 to 2 days if growth is noted. Patient was offered oral prednisone for wheezing, however she states that she cannot tolerate that medication. Patient was recently prescribed Advair by Dr. Corrigan and she states that she will continue to use that until her appointment next week. Supportive care was discussed and the patient was advised to report to an emergency department if she notes any acute worsening of her symptoms. Patient was advised that we will contact her if any growth is noted on the urine culture and she will be placed on medication at that time. Patient verbalizes excellent understanding of all instructions. CLINICAL IMPRESSION: Urinary Urgency/Frequency; Asthma/COPD; Tobacco Abuse ASSESSMENT/PLAN: 1. Urinary frequency - ICD9: 788.41, ICD10: R35.0 - UA DIP, URINE (POC) - BACTERIAL CULTURE, URINE MDM Amount and/or Complexity of Data Reviewed Clinical lab tests: ordered and reviewed Risk of Complications, Morbidity, and/or Mortality Presenting problems: low Diagnostic procedures: low Management options: low Rufus Ohara PA-C documented in this encounter [facility] 12-11-2024 Note [facility] 12-11-2024 History of Presen t illness Narrative CDM ENROLLMENT Provider Action / FYI: Patient identified by name and date of . Discussed care with patient. Provided H@H number, educated on resources. Program Details Chronic Disease Management Status: Declined Patient Declined - Initial Effective Dates: unknown - 12/11/2024 Responsible Staff: Naila Lanier, HOWARD Support and Services: None active Assessments No documentation this encounter Interventions No episode Naila Lanier RN December 11, 2024 2:09 PM documented in this encounter [facility] 12-09-2024 Note [facility] 12-09-2024 History of Presen t illness Narrative POPULATION HEALTH NAVIGATION OUTREACH Action/FYI ACO High Risk - attempt 2 Pt due for: Medicare AWV LM; sent mychart message Reason for Outreach Care Gap/HCC or Scheduling Wellness Visits Care Gaps due: Medicare Annual Wellness Visit Patient Contacted: Unable or unnecessary to reach patient: Left message MyChart message sent Navigation Signature: Madonna Martinez December 09, 2024 9:02 AM documented in this encounter [facility] 12-04-2024 Note [facility] 12-04-2024 History of Presen t illness Narrative POPULATION HEALTH NAVIGATION OUTREACH Action/FYI ACO High Risk - attempt 1 Pt due for: Medicare AWV LM; sent mychart message Reason for Outreach Care Gap/HCC or Scheduling Wellness Visits Care Gaps due: Medicare Annual Wellness Visit Patient Contacted: Unable or unnecessary to reach patient: Left message MyChart message sent Updated appointment notes Navigation Signature: Madonna Martinez December 04, 2024 7:10 AM documented in this encounter [facility] 11-30-2024 Telephone encounter Note Prescription Refill Information The patient has been identified by name and date of : Yes Caregiver verified no other encounters exist for this prescription request: Yes Caregiver confirmed with patient/requestor that no other refills are due, in the near future, with this provider at this time: Yes The last office visit in the department: 11/18/24 Does the patient have a future office visit with this provider/department: Yes Requested Prescriptions Pending Prescriptions Disp Refills furosemide (LASIX) 20 mg tablet 90 tablet Sig: Take 1 tablet by mouth once daily. Keshia Briseno LPN November 30, 2024 12:53 PM [facility] 11-30-2024 Miscellaneous Notes Prescription Refill Information The patient has been identified by name and date of : Yes Caregiver verified no other encounters exist for this prescription request: Yes Caregiver confirmed with patient/requestor that no other refills are due, in the near future, with this provider at this time: Yes The last office visit in the department: 11/18/24 Does the patient have a future office visit with this provider/department: Yes Requested Prescriptions Pending Prescriptions Disp Refills furosemide (LASIX) 20 mg tablet 90 tablet Sig: Take 1 tablet by mouth once daily. Keshia Briseno LPN November 30, 2024 12:53 PM documented in this encounter [facility] 11-26-2024 Telephone encounter Note Fax rec'd from [employer] for DME supplies for true metrix glucose testing strips. This was completed and faxed back recent office notes as requested. [facility] 11-26-2024 Miscellaneous Notes Fax rec'd from [employer] for DME supplies for true metrix glucose testing strips. This was completed and faxed back recent office notes as requested. documented in this encounter [facility] 11-25-2024 Note [facility] 11-25-2024 History of Presen t illness Narrative Patient: Garland De Santiago PCP: Willam Estrada MD CC: follow up HPI: Garland De Santiago 64 year old female current 36 pack year smoker with PMH significant for allergies, asthma, DM, HTN, YARY non-compliant with BiPAP. Current maintenance therapy with Breo and as needed Albuterol. Typically using Albuterol 2-3 times daily for wheezing and SOB. Will also use Duonebs as needed. Today, patient reports daily cough that is worse in the morning. Productive of white and thick sputum. No hemoptysis. Persistent wheezing, chest tightness and SOB. She has to climb 17 steps to get into apartment and has difficulty. No fevers, chills, or night sweats. No unintended weight loss. No lower extremity edema. No GERD/heartburn. No recent hospitalizations or ED visits or upper respiratory infections. Currently smoking 1.5- 2 ppd. PAST MEDICAL HISTORY Diagnosis Date Allergic rhinitis, cause unspecified 02/10/2007 Anxiety Arthritis Asthma 02/10/2007 Depression Psychiatrist managing (Dr. Bedolla) DM type 2 (diabetes mellitus, type 2) ([facility]) Essential hypertension 05/23/2006 Hemorrhage of gastrointestinal tract, unspecified 12/13/2011 Had bleeding hemorrhoids in 2011; normal colonoscopy Internal hemorrhoids without mention of complication 12/13/2011 Mixed hyperlipidemia 05/23/2006 Obesity (BMI 30.0-34.9) YARY (obstructive sleep apnea) Uses BiPAP occasionally Other nonspecific abnormal finding 05/23/2006 CK Elevation Snoring Allergies: Cephalosporins Rash Dilaudid [Hydromorp* Mental Status Change Doxycycline GI Upset Comment:Sharp pains in stomach Dust Mites Omnicef [Cefdinir] Hives Paxil [Paroxetine] Intolerance Comment:excessive sweating Penicillins Hives, Other: See Comments Comment:Any medication with penicillin in it. Had been given amoxicillin in 2011 and had reactionGiven test dose of 2cc's on 08/17/2019 causing sever flushing along with hypotension Prednisone Intolerance Comment:Elevated BS, ER Prozac [Fluoxetine * Mental Status Change, Diarrhea Pseudoephedrine Intolerance Comment:Heart racing Vicodin [Hydrocodon* GI Upset albuterol (PROVENTIL) 2.5 mg /3 mL (0.083 %) nebulizer solution Use 3 mL via nebulizer every 4 hours as needed for wheezing/shortness of breath. [START ON 12/10/2024] ALPRAZolam (XANAX) 0.5 mg tablet Take 1 tablet by mouth at bedtime as needed for up to 120 days. Patient should start on December 10, 2024. blood sugar diagnostic (TRUE METRIX GLUCOSE TEST STRIP) test strip Test blood sugars twice a day DX: E11.65 Insulin: No Use as instructed [START ON 12/10/2024] gabapentin (NEURONTIN) 300 mg capsule Take 2 capsules by mouth two times a day for 180 days. Patient should start on December 10, 2024. glipiZIDE (GLUCOTROL) 5 mg tablet Take 1 tablet by mouth once daily. May take extra half to whole pill daily as needed for blood sugar over 200 ipratropium (ATROVENT) 0.02 % nebulizer solution Use 2.5 mL via nebulizer four times a day as needed. Unit dose pack of [address] (PROTONIX) 20 mg tablet Take 1 tablet by mouth two times a day. Take on empty stomach, 1/2 hr before meal. As directed potassium chloride (K-TAB) 10 mEq tablet Take 1 tablet by mouth daily with breakfast. amLODIPine (NORVASC) 5 mg tablet Take 1 tablet by mouth once daily. albuterol HFA (VENTOLIN HFA) 90 mcg/actuation inhaler Inhale 2 Puffs as instructed every 4 hours as needed. carvedilol (COREG) 25 mg tablet Take 25 mg by mouth two times a day with meals. furosemide (LASIX) 20 mg tablet Take 1 tablet by mouth once daily. lisinopril (ZESTRIL) 20 mg tablet Take 1 tablet by mouth two times a day. fluticasone (FLONASE) 50 mcg/actuation nasal spray Use 2 Sprays in each nostril once daily as needed for cold/allergy symptoms. Rinse mouth after use. Alpha Lipoic Acid 600 mg cap Take 600 mg by mouth once daily. ibuprofen (MOTRIN) 600 mg tablet Take 1 tablet by mouth two times a day as needed for pain. fluticasone-vilanterol (BREO ELLIPTA) 200-25 mcg/dose inhaler Inhale 1 Inhalation as instructed once daily. COVID-19 antigen test (COVID-19 AT-HOME TEST) kit Use as directed for signs and symptoms of COVID busPIRone (BUSPAR) 15 mg tablet Take 0.5 tablets by mouth two times a day. gemfibrozil (LOPID) 600 mg tablet Take 1 tablet by mouth two times a day. metFORMIN ER (GLUCOPHAGE XR) 500 mg 24 hr tablet Take 1 tablet by mouth two times a day before meals. sertraline (ZOLOFT) 100 mg tablet Take 2 tablets by mouth once daily. traZODone (DESYREL) 100 mg tablet Take 1 tablet by mouth daily at bedtime. BIPAP Initiate BiPAP @ 20/14 cm of water with heated humidification. Ti Max 1.0, Ti Min 0.3, trigger medium, cycle high. Mask (medium AirFit F10 full face mask or per patient preference) optional chin strap (if indicated) , filters, tubing, humidifier and lifetime supplies. Nebulizer and Compressor For Neb Use for albuterol and ipratropium nebulizer treatments every 4 hours as needed Lancets lancets Test blood sugar(s) 2 times daily. Dx: Type 2 DM - Uncontrolled E11.65 Insulin: No Blood-Glucose Meter monitoring kit Insurance covered or per patient choice. Test blood sugar twice daily plus as needed for symptoms of blood sugars being too high or low. Dx: Type 2 DM - Uncontrolled E11.65 Insulin:No Nebulizer NEBULIZER FOR HOME USE. DX: J45.42 Social History Tobacco Use Smoking status: Every Day Current packs/day: 1.50 Average packs/day: 1.5 packs/day for 36.0 years (54.0 ttl pk-yrs) Types: Cigarettes Smokeless tobacco: Never Tobacco comments: Working on smoking cessation. Trying every day to quit and down to 8-9 cigarettes daily and quit smoking in the house Vaping Use Vaping status: Never Used Substance Use Topics Alcohol use: No Drug use: No Family History Problem Relation Age of Onset Hypertension Mother history of glaucoma Cervical Cancer Mother Asthma Mother Heart Father CO x 2 Cancer Father Lung, metastatic to bone, age 77 other (aortic aneurysm) Father 50 Colon Polyps Sister Thyroid Sister Hypothyroidism Thyroid Sister Cancer Sister Lung, LLL. Resected. No Known Problems Daughter No Known Problems Son PAST SURGICAL HISTORY Procedure Laterality Date ADENOIDECTOMY PRIMARY <AGE 12 Adenoidectomy ANTERIOR COLPORRAPHY RPR CYSTOCELE W/CYSTO Cystocele repair APPENDECTOMY APPENDECTOMY HX ARTHRP KNE CONDYLE&PLATU MEDIAL&LAT COMPARTMENTS 07/10/2015 right BACK SURGERY HX COLONOSCOPY 02/22/2022 COLONOSCOPY FLX DX W/COLLJ SPEC WHEN PFRMD 12/13/2011 Colonoscopy repeat 10 years EGD W/O BRSH SPEC VARICIES INJ 02/22/2022 ESOPHAGOGASTRODUODENOSCOPY TRANSORAL DIAGNOSTIC 02/09/2016 EGD INCISE FINGER TENDON SHEATH Right 08/10/2021 Right ring trigger finger release JOINT REPLACEMENT HX LAPS ABD PRTM&OMENTUM DX W/WO SPEC BR/WA SPX Laparoscopy LAPS SURG CHOLECYSTECTOMY W/CHOLANGIOGRAPHY 10/07/2006 LIG/TRNSXJ FLP TUBE ABDL/VAG APPR UNI/BI Tubal ligation PAST SURGICAL HISTORY OF 06/22/2010 right knee arthroscopy- by Dr Dawson ([facility]) PAST SURGICAL HISTORY OF 04/27/2020 low back surgery at [facility];s/p L4 laminectomy, decompression of L4-5 canal stenosis with bilateral L4, L5 root foraminotomies TONSILLECTOMY PRIMARY/SECONDARY <AGE 12 Tonsillectomy VAGINAL HYSTERECTOMY UTERUS 250 GM/< Hysterectomy, vaginal for menorrhagia I reviewed the past medical history, family history, social history and surgical history with changes noted above and updated in EMR. IMMUNIZATIONS Immunization History Administered Date(s) Administered COVID-19 original vaccine, full dose, monovalent (MODERNA) 11/16/2020 12/15/2020 08/04/2021 04/06/2022 COVID-19 vaccine, age 12+ yr, bivalent (MODERNA) 08/20/2022 diphtheria tetanus (DT) vaccine, pediatric 10/11/1998 influenza (IIV3) vaccine, age 6 mo - 64 yr, trivalent (AFLURIA, FLULAVAL, FLUVIRIN, FLUZONE) 06/14/2014 08/04/2021 influenza (IIV3) vaccine, trivalent (AFLURIA, FLULAVAL, FLUVIRIN, FLUZONE) 07/22/2015 influenza (IIV3) vaccine, trivalent, PF (AFLURIA, FLUARIX, FLULAVAL, FLUVIRIN, FLUZONE) 07/22/2015 influenza (IIV4) vaccine, age 6 mo - 64 yr, quadrivalent (AFLURIA, FLULAVAL, FLUZONE) 05/30/2016 05/30/2018 10/13/2019 08/07/2022 07/23/2023 influenza (IIV4) vaccine, age 6 mo - 64 yr, quadrivalent, PF (AFLURIA, FLUARIX, FLULAVAL, FLUZONE) 06/14/2014 07/22/2015 influenza (ccIIV4) vaccine, age 6+ mo, quadrivalent, PF (FLUCELVAX) 08/04/2021 influenza vaccine, unspecified formulation 07/14/2012 06/19/2013 pneumococcal conjugate (PCV20) vaccine, 20 valent (PREVNAR 20) 07/23/2023 pneumococcal polysaccharide (PPV23) vaccine, 23 valent (PNEUMOVAX 23) 03/22/2010 09/09/2010 pneumococcal vaccine, unspecified formulation 09/09/2010 tetanus diphtheria (Td) vaccine, adult, non-adsorbed 09/14/2008 tetanus immune globulin (TIG) (HYPERTET) 10/11/1998 Deferred Date(s) Deferred influenza (IIV4) vaccine, age 6 mo - 64 yr, quadrivalent, PF (AFLURIA, FLUARIX, FLULAVAL, FLUZONE) 08/18/2019 ROS: All other systems reviewed as negative except for what is noted in HPI and review of systems. PHYSICAL EXAMINATION: BP 124/86 Pulse 83 Resp 14 Wt 86.6 kg (191 lb) SpO2 97% BMI 30.83 kg/m Gen: No acute distress. Cooperative with examination. HEENT: Normocephalic. Sclera, conjunctiva clear. Oral hygeine and dentition good. No thrush. Resp: No crackles, or rhonchi. Scattered wheezes. CV: Regular rythm. Heart tones normal. Radial pulses normal. Ext: Warm and well perfused. No clubbing, cyanosis, edema. Skin: No rash, ecchymoses. Neuro: Mental status normal. Affect normal. No tremor. 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 Start of test and EOFE criteria met. Medications and Allergies were reviewed for possible drug interactions per policy. No contraindications or sensitivities were noted. Meds taken: Albuterol 15 minutes before testing. IMPRESSION: Spirometry is normal. Electronically Signed On 11-11-2023 16:27:40 EST by Mona Corrigan MD ID: [id number] Name: GARLAND DE SANTIAGO Race: White Ht: 64.80 in Wt: 200.00 lbs Age: 63 Gender: Female : 1960 Dx: COPD with chronic bronchitis Smoking Hx: Non-smoker Doctor: MONA CORRIGAN Test Date: 11/11/2023 Site: Tech: Lucy Chandra PRE-BRONCH POST-BRONCH Pre LLN Pred ULN %Pred Post %Pred %Chg SPIROMETRY FVC (L) 2.90 2.16 3.00 3.86 96 FEV1 (L) 1.99 1.68 2.37 3.01 83 FEV1/FVC 0.69 0.67 0.79 0.89 86 PEF L/s (L/sec) 5.40 4.46 6.22 7.97 86 FEF50 (L/sec) 2.02 1.72 3.32 4.93 60 FIF50 (L/sec) 5.05 FEF50/FIF50 0.40 90-100 FIVC (L) 2.82 AEN57-85 (L/sec) 1.13 1.07 2.16 3.66 52 Time (sec) 10.29 FET PEF (sec) 0.09 MARCO (L) 0.08 Vol Extrap % (%) 3 Comments: Current ATS/ERS acceptability and repeatability standards for spirometry met. Start of test and EOFE criteria met. Medications and Allergies were reviewed for possible drug interactions per policy. No contraindications or sensitivities were noted. Meds taken: Albuterol [address] Chest other findings: Last CT Chest - Impression Only CT CHEST WO IVCON Exam End: 06/23/2024 3:51 PM (Final result) Impression: IMPRESSION: Stable bilateral lung nodules. No new nodules identified. ... Last XR Chest - Impression Only XR CHEST 2V FRONTAL/LAT Exam End: 03/04/2024 3:03 PM (Final result) Impression: IMPRESSION: Acute and/or chronic probable bronchitis. Peribronchial cuffing similar to recent CT Kyphoscoliosis more pronounced on nonweightbearing radiography than recumbent CT, incidentally ... ASSESSMENT/PLAN: 1. Moderate persistent asthma without complication - ICD9: 493.90, ICD10: J45.40 (primary diagnosis) Based on symptoms and physical exam, patient with acute exacerbation. She declines oral prednisone. She does not feel her asthma has been well controlled for awhile. Will change Breo to high dose Advair. Albuterol HFA inhaler, 2 inhalations 10-15 minutes prior to activities associated with shortness of breath, and as needed for rescue relief of shortness of breath or wheezing, up to 4 times daily. Smoking cessation is critical. - FLUTICASONE 500 MCG-SALMETEROL 50 MCG/DOSE BLISTR POWDR FOR INHALATION 2. Lung nodules - ICD9: 793.19, ICD10: R91.8 Enrolled in lung cancer screening. Last LDCT 11/2024. Next LDCT planned for 11/2025 3. Class 2 obesity - ICD9: 278.00, ICD10: E66.812 BMI 30.83 Weight loss encouraged. 4. Tobacco use current - ICD9: 305.1, ICD10: Z72.0 - Cessation encouraged. - Physiologic and physical aspects of tobacco addiction as well as strategies for quitting were discussed. - Counseling was given focusing on the harmful effects of this addiction especially given the patient's medical condition(s) which will be worsened because of the chemicals in tobacco. 5. YARY (obstructive sleep apnea) - ICD9: 327.23, ICD10: G47.33 Non-compliant with PAP therapy. 6. Family history of abdominal aortic aneurysm (AAA) - ICD9: V17.49, ICD10: Z82.49 7. 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 She states she has a significant family history. I advised that smoking cessation is the best measure she can take to reduce her risk. She would like to see Vascular Surgery. - CONSULT TO VASCULAR SURGERY Portions of this documentation were copied and pasted from previous office visit notes in order to provide a cohesive continuity of the history. The note has been reviewed and edited and updated as necessary. Leila Rubi PA-C documented in this encounter [facility] 11-24-2024 Instructions Indigo Nichols PA-C - 11/24/2024 2:06 PM EDT Qutenza or other patches for pain. If the pain gets worse, let me know. We can either go up on the gabapentin or start a new medication called lyrica Follow up as needed documented in this encounter [facility] 11-24-2024 Note HNO ID: [id number] Author: JOSEPH CORRIGAN LPN Service: ? Author Type: LICENSED NURSE Type: Progress Notes Filed: 11/24/2024 14:31 Note Text: [facility] 11-24-2024 History of Presen t illness Narrative Images from the original note were not included. [facility] Neu[facility] Name: Garland De Santiago Age: [age] year old Gender: female Primary Care Provider: Willam Estrada MD Assessment/Plan: 11/24/2024 - General Neurology, Indigo Nichols PA-C ASSESSMENT ASSESSMENT/PLAN: 1. Neuropathy - ICD9: 355.9, ICD10: G62.9 (primary diagnosis) Patient with paresthesias to the feet and ankles, longstanding history of diabetes mellitus. Discussed likely neuropathy although EMG was negative. Discussed possibility of small fiber neuropathy, laboratory workup was unrevealing throughout the part of cause of neuropathy. Deferring any further testing including skin biopsy. Is currently on gabapentin 600 mg twice daily prescribed through primary care. Did try alpha lipoic acid with no significant benefit. Also following with orthopedics due to concern for possible lumbar stenosis, discussed this may also be contributing to symptoms in the lower extremities as well. Discussed increasing gabapentin either to 800 mg twice daily or to 600 mg 3 times daily. Patient deferring any further medication changes at this time. Discussed alternative medications as well including Lyrica, nortriptyline and Cymbalta but again defer any changes. Patient is currently on Zoloft as well. Does have some balance issues, but no recent falls, no significant lightheadedness. Occasionally with swelling in the legs but attributes this to recently being on amlodipine. No other new symptoms that would warrant additional workup at this time. 2. Carpal tunnel syndrome of right wrist - ICD9: 354.0, ICD10: G56.01 EMG did show signs of carpal tunnel syndrome on the right, discussed conservative therapies for this. Deferring any orthopedic referral for this at this time. At this time, will have patient follow-up as needed should symptoms worsen or change. Indigo Nichols PA-C Encounter Diagnosis ICD-10-CM 1. Neuropathy G62.9 2. Carpal tunnel syndrome of right wrist G56.01 No follow-ups on file. Chart, labs,and relevant images reviewed. Chief Complaint:Patient presents with: Established Patient: Neuropathy, tx kevin- c/o neuropathy worsening Chart Review: Last Filed Values Date of Most Recent Assessment and Plan 11/24/24 (P) Specialty General Neurology (P) Assessment ASSESSMENT/PLAN: 1. Neuropathy - ICD9: 355.9, ICD10: G62.9 (primary diagnosis) 2. Other fatigue - ICD9: 780.79, ICD10: R53.83 Patient with worsening paresthesias in the feet as well as new paresthesias in the hands starting over the last 7 to 8 weeks. Has history of diabetic neuropathy in the feet, last A1c was 7.1. Unsure of any etiology for worsening symptoms, but states that it feels like she is walking on glass and also has chronic ywaj-wpa-jewitmd feeling in her feet. Similar symptoms in her hands, the hands were very similar to how her feet started. Symptoms are equal bilaterally, no falls but does report some subjective weakness in the hands and feet. No weakness appreciated on exam but she does have stocking glove distribution of neuropathy consistent with polyneuropathy. Will obtain laboratory studies to look for other causes of worsening neuropathy but discussed it could be related chronically elevated sugar levels. Will obtain TSH, B12, SPEP. Additionally, discussed a repeat EMG and patient is amenable to this. She is currently on gabapentin 600 mg twice daily and does not want adjust this at this time. Discussed alpha lipoic acid in addition to this and patient is amenable to starting. Discussed conservative therapy as well, patient denying any active lightheadedness or presyncope, but encouraged increased water intake. Patient agreeable to treatment plan of care at this time, questions were answered. Patient to follow-up in 3 months. Indigo Nichols PA-C HPI: Last seen on 07/29/24 for neuropathy sxs. EMG showing CTS, no neuropathy. Added alpha lipioc acid to gabapentin 600mg bid. Patient presents for follow-up appointment and to review EMG. Notes that she is continue to have paresthesias in the lower extremities and her hands. Some worsening in the feet but otherwise symptoms are unchanged. Did try the alpha lipoic acid with no improvement. Still on gabapentin 600 mg twice daily. Notes that she did try gabapentin 3 times a day at 1 point but made her too fatigued throughout the day. Notes that her symptoms are usually worse in the evening or if she is been on her feet for a long period of time. Notes history of carpal tunnel syndrome in the past and wears braces when her symptoms flareup in her hands. Notes that he is also following with orthopedics and MRI of the cervical spine recently showed moderate central stenosis and they are discussing possible surgeries versus other treatments. Notes that she also has a lumbar MRI coming up next month, following with Dr. Avilez. Review of Systems ACTIVE PROBLEM LIST Essential Hypertension Elevated Ck Asthma Pure Hyperglyceridemia Rhinitis Obesity (Bmi 30.0-34.9) Type 2 Diabetes Mellitus With Diabetic Neuropathy, Without Long-Term Current Use of Insulin (Hcc) Recurrent Major Depressive Disorder, in Remission ([facility]) Yary (Obstructive Sleep Apnea) Anxiety Lumbar Spinal Stenosis Nicotine use disorder, F17.2 S/P Lumbar Laminectomy Chronic Midline Low Back Pain Gait Instability Severe Persistent Asthma Headache, Unspecified Headache Type Congestion of Respiratory Tract PAST MEDICAL HISTORY Diagnosis Date Allergic rhinitis, cause unspecified 02/10/2007 Anxiety Arthritis Asthma 02/10/2007 Depression Psychiatrist managing (Dr. Bedolla) DM type 2 (diabetes mellitus, type 2) ([facility]) Essential hypertension 05/23/2006 Hemorrhage of gastrointestinal tract, unspecified 12/13/2011 Had bleeding hemorrhoids in 2011; normal colonoscopy Internal hemorrhoids without mention of complication 12/13/2011 Mixed hyperlipidemia 05/23/2006 Obesity (BMI 30.0-34.9) YARY (obstructive sleep apnea) Uses BiPAP occasionally Other nonspecific abnormal finding 05/23/2006 CK Elevation Snoring Medications: Reviewed albuterol (PROVENTIL) 2.5 mg /3 mL (0.083 %) nebulizer solution Use 3 mL via nebulizer every 4 hours as needed for wheezing/shortness of breath. [START ON 12/10/2024] ALPRAZolam (XANAX) 0.5 mg tablet Take 1 tablet by mouth at bedtime as needed for up to 120 days. Patient should start on December 10, 2024. blood sugar diagnostic (TRUE METRIX GLUCOSE TEST STRIP) test strip Test blood sugars twice a day DX: E11.65 Insulin: No Use as instructed [START ON 12/10/2024] gabapentin (NEURONTIN) 300 mg capsule Take 2 capsules by mouth two times a day for 180 days. Patient should start on December 10, 2024. glipiZIDE (GLUCOTROL) 5 mg tablet Take 1 tablet by mouth once daily. May take extra half to whole pill daily as needed for blood sugar over 200 ipratropium (ATROVENT) 0.02 % nebulizer solution Use 2.5 mL via nebulizer four times a day as needed. Unit dose pack of [address] (PROTONIX) 20 mg tablet Take 1 tablet by mouth two times a day. Take on empty stomach, 1/2 hr before meal. As directed potassium chloride (K-TAB) 10 mEq tablet Take 1 tablet by mouth daily with breakfast. amLODIPine (NORVASC) 5 mg tablet Take 1 tablet by mouth once daily. albuterol HFA (VENTOLIN HFA) 90 mcg/actuation inhaler Inhale 2 Puffs as instructed every 4 hours as needed. carvedilol (COREG) 25 mg tablet Take 25 mg by mouth two times a day with meals. furosemide (LASIX) 20 mg tablet Take 1 tablet by mouth once daily. lisinopril (ZESTRIL) 20 mg tablet Take 1 tablet by mouth two times a day. fluticasone (FLONASE) 50 mcg/actuation nasal spray Use 2 Sprays in each nostril once daily as needed for cold/allergy symptoms. Rinse mouth after use. Alpha Lipoic Acid 600 mg cap Take 600 mg by mouth once daily. ibuprofen (MOTRIN) 600 mg tablet Take 1 tablet by mouth two times a day as needed for pain. fluticasone-vilanterol (BREO ELLIPTA) 200-25 mcg/dose inhaler Inhale 1 Inhalation as instructed once daily. COVID-19 antigen test (COVID-19 AT-HOME TEST) kit Use as directed for signs and symptoms of COVID busPIRone (BUSPAR) 15 mg tablet Take 0.5 tablets by mouth two times a day. gemfibrozil (LOPID) 600 mg tablet Take 1 tablet by mouth two times a day. metFORMIN ER (GLUCOPHAGE XR) 500 mg 24 hr tablet Take 1 tablet by mouth two times a day before meals. sertraline (ZOLOFT) 100 mg tablet Take 2 tablets by mouth once daily. traZODone (DESYREL) 100 mg tablet Take 1 tablet by mouth daily at bedtime. BIPAP Initiate BiPAP @ 20/14 cm of water with heated humidification. Ti Max 1.0, Ti Min 0.3, trigger medium, cycle high. Mask (medium AirFit F10 full face mask or per patient preference) optional chin strap (if indicated) , filters, tubing, humidifier and lifetime supplies. Nebulizer and Compressor For Neb Use for albuterol and ipratropium nebulizer treatments every 4 hours as needed Lancets lancets Test blood sugar(s) 2 times daily. Dx: Type 2 DM - Uncontrolled E11.65 Insulin: No Blood-Glucose Meter monitoring kit Insurance covered or per patient choice. Test blood sugar twice daily plus as needed for symptoms of blood sugars being too high or low. Dx: Type 2 DM - Uncontrolled E11.65 Insulin:No Nebulizer NEBULIZER FOR HOME USE. DX: J45.42 ALLERGIES Allergen Reactions Cephalosporins Rash Dilaudid [Hydromorp* Mental Status Change Doxycycline GI Upset Sharp pains in stomach Dust Mites Omnicef [Cefdinir] Hives Paxil [Paroxetine] Intolerance excessive sweating Penicillins Hives, Other: See Comments Any medication with penicillin in it. Had been given amoxicillin in 2011 and had reaction Given test dose of 2cc's on 08/17/2019 causing sever flushing along with hypotension Prednisone Intolerance Elevated BS, ER Prozac [Fluoxetine * Mental Status Change, Diarrhea Pseudoephedrine Intolerance Heart racing Vicodin [Hydrocodon* GI Upset FAMILY HISTORY Problem Relation Age of Onset Hypertension Mother history of glaucoma Cervical Cancer Mother Asthma Mother Heart Father [place] x 2 Cancer Father Lung, metastatic to bone, age 77 other (aortic aneurysm) Father 50 Colon Polyps Sister Thyroid Sister Hypothyroidism Thyroid Sister Cancer Sister Lung, LLL. Resected. No Known Problems Daughter No Known Problems Son PAST SURGICAL HISTORY Procedure Laterality Date ADENOIDECTOMY PRIMARY <AGE 12 Adenoidectomy ANTERIOR COLPORRAPHY RPR CYSTOCELE W/CYSTO Cystocele repair APPENDECTOMY APPENDECTOMY HX ARTHRP KNE CONDYLE&PLATU MEDIAL&LAT COMPARTMENTS 07/10/2015 right BACK SURGERY HX COLONOSCOPY 02/22/2022 COLONOSCOPY FLX DX W/COLLJ SPEC WHEN PFRMD 12/13/2011 Colonoscopy repeat 10 years EGD W/O BRSH SPEC VARICIES INJ 02/22/2022 ESOPHAGOGASTRODUODENOSCOPY TRANSORAL DIAGNOSTIC 02/09/2016 EGD INCISE FINGER TENDON SHEATH Right 08/10/2021 Right ring trigger finger release JOINT REPLACEMENT HX LAPS ABD PRTM&OMENTUM DX W/WO SPEC BR/WA SPX Laparoscopy LAPS SURG CHOLECYSTECTOMY W/CHOLANGIOGRAPHY 10/07/2006 LIG/TRNSXJ FLP TUBE ABDL/VAG APPR UNI/BI Tubal ligation PAST SURGICAL HISTORY OF 06/22/2010 right knee arthroscopy- by Dr Dawson ([facility]) PAST SURGICAL HISTORY OF 04/27/2020 low back surgery at [facility];s/p L4 laminectomy, decompression of L4-5 canal stenosis with bilateral L4, L5 root foraminotomies TONSILLECTOMY PRIMARY/SECONDARY <AGE 12 Tonsillectomy VAGINAL HYSTERECTOMY UTERUS 250 GM/< Hysterectomy, vaginal for menorrhagia Social Hx: @Alcohol Use: Not At Risk (08/25/2022) AUDIT-C Frequency of Alcohol Consumption: Never Average Number of Drinks: Patient does not drink Frequency of Binge Drinking: Never Tobacco Use: High Risk (11/18/2024) Patient History Smoking Tobacco Use: Every Day Smokeless Tobacco Use: Never Passive Exposure: Not on file 11/24/24 1341 BP: 109/70 Pulse: 82 Neurologic Exam Cognitive and Language: Alert and answered questions appropriately. Language was fluent. Cranial Nerves: Extraocular movements were full with no diplopia or nystagmus. Facial strength was symmetric. Motor: Moves all 4 extremities Sensory: No evidence of neglect Coordination: Normal gait. Labs: Lab Results Component Value Date WBC 8.99 06/22/2024 HCT 44.0 06/22/2024 MCV 87.3 06/22/2024 PLT 325 06/22/2024 Lab Results Component Value Date HBA1C 7.1 06/22/2024 HBA1C 8.9 12/06/2023 HBA1C 9.2 11/16/2023 HBA1C 6.4 08/14/2021 HBA1C 6.4 03/30/2021 HBA1C 6.0 10/07/2020 Cholesterol, Total Date Value Ref Range Status 06/22/2024 136 <200 mg/dL Final Comment: <200 mg/dL, Desirable 200-239 mg/dL, Borderline high >239 mg/dL, High HDL Cholesterol Date Value Ref Range Status 06/22/2024 22 (L) >39 mg/dL Final Comment: 40-59 mg/dL, Acceptable >59 mg/dL, High: Negative risk factor for coronary heart disease <40 mg/dL, Low: Positive risk factor for coronary heart disease LDL Cholesterol Date Value Ref Range Status 11/16/2023 38 <100 mg/dL Final Comment: <100 mg/dL, Optimal 100-129 mg/dL, Near optimal/above optimal 130-159 mg/dL, Borderline high 160-189 mg/dL, High >189 mg/dL, Very high Secondary prevention optimal LDL Cholesterol levels are recommended to be < 70 mg/dL Triglyceride Date Value Ref Range Status 06/22/2024 407 (H) <150 mg/dL Final Comment: <150 mg/dL, Normal 150-199 mg/dL, Borderline high 200-499 mg/dL, High >499 mg/dL, Very high EMG 11/11/24 Radiology: MRI Head/Brain - Last 2 Impressions No resulted procedures found. and MRI Spine - Last 2 Impressions MRI LUMBAR SPINE WO IVCON Exam End: 09/27/2022 3:20 PM (Final result) Impression: IMPRESSION: Degenerative changes of the lumbar spine as discussed level by level in the body of the report. Interval improvement in L4-5 now mild spinal canal stenosis. No severe spinal canal stenosis. Anatomic Lumbar Variant: None. L4-5 is considered the level of the iliac crest and assume there are 5 lumbar-type vertebrae. 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: OLIVE Transcribe Date/Time: Sep 27 2022 5:51P Dictated by : RICHARD KAPOOR MD This examination was interpreted and the report reviewed and electronically signed by: RICHARD KAPOOR MD on Sep 27 2022 6:01PM EST This note was dictated using Ge[employer] speech recognition software and may contain some errors that were a result of the program not accurately transcribing what was dictated, despite efforts to make corrections. Note that unless urgent, test and MRI results will be discussed at next follow-up visit. PROMIS (Patient-Reported Outcomes Measurement Information System) is a set of person-centered measures that evaluates and monitors physical, social, and emotional health. It can be used with the general population and with individuals living with chronic conditions. PROMIS 10: PHYSICAL AND MENTAL HEALTH: 04/06/2022 PHQ-9 PHQ-2 Score 2 PHQ-9 Score 10 Medical Decision Making: Medical Decision Making Level: 1 - N/A I spent a total of 30 minutes on the date of the service which included preparing to see the patient, tjlx-lg-vyly patient care, completing clinical documentation, obtaining and/or reviewing separately obtained history, performing a medically appropriate examination, counseling and educating the patient/family/caregiver, and ordering medications, tests, or procedures. documented in this encounter [facility] 11-24-2024 Note [facility] 11-23-2024 History of Presen t illness Narrative Radiology Service Progress Note PATIENT NAME: Garland De Santiago DATE OF SERVICE: November 23, 2024 TIME: 3:55 PM PATIENT IDENTITY VERIFICATION COMPLETED USING TWO (2) IDENTIFIERS: Name and Date of confirmed by patient verbally. FALL SCREENING: Has the patient had 2 falls in the last year or 1 fall with injury or currently using an Ambulatory Assistive Device (Walker, Cane, Wheelchair, Crutches, etc.)? No PATIENT GENDER DATA: Assigned female at . status: : No status: NO. PATIENT RELEVANT IMPLANT DATA REVIEWED: Yes PATIENT PRESENTS WITH AN IMPLANTABLE OR ATTACHED CHERRY PICKER OPERATOR: No RADIOLOGY DEPARTMENT: CT; Exam(s) Completed: Lung Screening PERIPHERAL IV DATA: Not applicable SIGNED BY: RT Edwin(R) November 23, 2024 3:55 PM documented in this encounter [facility] 11-23-2024 Note [facility] 11-19-2024 Telephone encounter Note Images from the original note were not included. Electronic PA rec'd and completed for the albuterol via nebulizer. This is denied under medicare part D. It is covered under Medicare part B. Pharmacy knows to bill this under Medicare part D. PA response. ote from payer: Denied. ALBUTEROL SULFATE Nebu Soln is used in a nebulizer. A nebulizer is a piece of durable medical equipment (DME). Drugs used with DME in the home are covered under Medicare Part B. Our records show that you do not live in a intermediate designer care (LTC) facility. We cannot pay for drugs under Medicare Part D if they are covered under Medicare Part A or B. We did not decide whether ALBUTEROL SULFATE Nebu Soln is medically necessary. We made our decision only on the fact that we cannot pay for the drug under Medicare Part D. For more information, talk to your prescriber or call [phone]. [facility] Electronic appeal: Not supported View History Notes Time User Attachment Attachment received from payer. 11/18/2024 7:24 PM Cchs, Rx Priorauth In Document Medication Being Authorized albuterol (PROVENTIL) 2.5 mg /3 mL (0.083 %) nebulizer solution Use 3 mL via nebulizer every 4 hours as needed for wheezing/shortness of breath. Dispense: 50 mL Refills: 5 Start: 11/18/2024 Class: Normal Diagnoses: Moderate persistent asthma without complication This order has been released to its destination. To be filled at: [email or web address] - [place] [address] [address] [facility] - [phone] [facility] 11-19-2024 Miscellaneous Notes Images from the original note were not included. Electronic PA rec'd and completed for the albuterol via nebulizer. This is denied under medicare part D. It is covered under Medicare part B. Pharmacy knows to bill this under Medicare part D. PA response. ote from payer: Denied. ALBUTEROL SULFATE Nebu Soln is used in a nebulizer. A nebulizer is a piece of durable medical equipment (DME). Drugs used with DME in the home are covered under Medicare Part B. Our records show that you do not live in a alf care (LTC) facility. We cannot pay for drugs under Medicare Part D if they are covered under Medicare Part A or B. We did not decide whether ALBUTEROL SULFATE Nebu Soln is medically necessary. We made our decision only on the fact that we cannot pay for the drug under Medicare Part D. For more information, talk to your prescriber or call [phone]. Payer: [facility] Electronic appeal: Not supported View History Notes Time User Attachment Attachment received from payer. 11/18/2024 7:24 PM Cchs, Rx Priorauth In Document Medication Being Authorized albuterol (PROVENTIL) 2.5 mg /3 mL (0.083 %) nebulizer solution Use 3 mL via nebulizer every 4 hours as needed for wheezing/shortness of breath. Dispense: 50 mL Refills: 5 Start: 11/18/2024 Class: Normal Diagnoses: Moderate persistent asthma without complication This order has been released to its destination. To be filled at: [facility] - [place] [address] - [address] [facility] - [phone] documented in this encounter [facility] 11-18-2024 Instructions Willam Estrada MD - 11/18/2024 5:28 PM EDT - Refill your prescriptions at [facility], except for your test strips and nebulizer solutions, which should be refilled at [facility]. - Contact your insurance company to clarify coverage for your albuterol inhaler. - Discontinue Amlodipine due to swelling. - Resume taking Furosemide (Lasix) 20 mg daily to manage swelling; you already have this medication at home. - Monitor your blood pressure regularly at home. - If your blood pressure rises significantly (e.g., 170s-180s over 90s), take a half dose of Amlodipine as needed. - Restart taking Alpha Lipoic Acid 600 mg daily for neuropathy symptoms. - Complete your lab tests as scheduled. - Next follow-up appointment is in 4 months. documented in this encounter [facility] 11-18-2024 Note [facility] 11-18-2024 History of Presen t illness Narrative This note was created using Apprityriter. Subjective Garland De Santiago is a 64 year old female. Patient presents with: Follow Up: question about alternative for albuterol inhaler, insurance no longer covers, med refills needed SUBJECTIVE: Garland De Santiago is a 64 year old year old lady here today for 4 month follow up appointment for review of medical conditions. Garland De Santiago is a 64-year-old female with a history of HTN, DM, and neuropathy, presenting for a 4-month follow-up and medication refills. Garland reports recent changes in her antihypertensive regimen due to elevated blood pressure readings. She was recently prescribed carvedilol 25 mg BID and amlodipine 5 mg BID by her aligner typewriter, Dr. Cruz. However, she has experienced significant bilateral lower extremity edema, more pronounced on the right side, since starting amlodipine. The edema worsened when the dose was increased to 10 mg daily and has only slightly improved after reducing the dose back to 5 mg daily. She notes that the swelling exacerbates her neuropathy and knee pain. She denies current use of furosemide but has some at home. She also has HCTZ at home, which was previously prescribed but discontinued. She denies recent lab work to monitor kidney function or potassium levels since the medication changes. Garland also reports increased wheezing and chest tightness over the past few days, requiring the use of her nebulizer every 4 hours for relief. She uses an albuterol inhaler as a rescue medication but received a letter stating it is no longer covered by her insurance. She inquires about alternative rescue inhalers. Additionally, Garland discontinued alpha-lipoic acid after one month due to perceived lack of improvement in her neuropathy symptoms. She inquires whether she should have noticed a difference within that time frame. PAST MEDICAL HISTORY Diagnosis Date Allergic rhinitis, cause unspecified 02/10/2007 Anxiety Arthritis Asthma 02/10/2007 Depression Psychiatrist managing (Dr. Bedolla) DM type 2 (diabetes mellitus, type 2) ([facility]) Essential hypertension 05/23/2006 Hemorrhage of gastrointestinal tract, unspecified 12/13/2011 Had bleeding hemorrhoids in 2011; normal colonoscopy Internal hemorrhoids without mention of complication 12/13/2011 Mixed hyperlipidemia 05/23/2006 Obesity (BMI 30.0-34.9) YARY (obstructive sleep apnea) Uses BiPAP occasionally Other nonspecific abnormal finding 05/23/2006 CK Elevation Snoring Current Outpatient Medications Medication Sig carvedilol (COREG) 25 mg tablet Take 25 mg by mouth two times a day with meals. lisinopril (ZESTRIL) 20 mg tablet Take 1 tablet by mouth two times a day. fluticasone (FLONASE) 50 mcg/actuation nasal spray Use 2 Sprays in each nostril once daily as needed for cold/allergy symptoms. Rinse mouth after use. ibuprofen (MOTRIN) 600 mg tablet Take 1 tablet by mouth two times a day as needed for pain. fluticasone-vilanterol (BREO ELLIPTA) 200-25 mcg/dose inhaler Inhale 1 Inhalation as instructed once daily. COVID-19 antigen test (COVID-19 AT-HOME TEST) kit Use as directed for signs and symptoms of COVID busPIRone (BUSPAR) 15 mg tablet Take 0.5 tablets by mouth two times a day. gemfibrozil (LOPID) 600 mg tablet Take 1 tablet by mouth two times a day. metFORMIN ER (GLUCOPHAGE XR) 500 mg 24 hr tablet Take 1 tablet by mouth two times a day before meals. sertraline (ZOLOFT) 100 mg tablet Take 2 tablets by mouth once daily. traZODone (DESYREL) 100 mg tablet Take 1 tablet by mouth daily at bedtime. BIPAP Initiate BiPAP @ 20/14 cm of water with heated humidification. Ti Max 1.0, Ti Min 0.3, trigger medium, cycle high. Mask (medium AirFit F10 full face mask or per patient preference) optional chin strap (if indicated) , filters, tubing, humidifier and lifetime supplies. Nebulizer and Compressor For Neb Use for albuterol and ipratropium nebulizer treatments every 4 hours as needed Lancets lancets Test blood sugar(s) 2 times daily. Dx: Type 2 DM - Uncontrolled E11.65 Insulin: No Blood-Glucose Meter monitoring kit Insurance covered or per patient choice. Test blood sugar twice daily plus as needed for symptoms of blood sugars being too high or low. Dx: Type 2 DM - Uncontrolled E11.65 Insulin:No Nebulizer NEBULIZER FOR HOME USE. DX: J45.42 albuterol (PROVENTIL) 2.5 mg /3 mL (0.083 %) nebulizer solution Use 3 mL via nebulizer every 4 hours as needed for wheezing/shortness of breath. [START ON 12/10/2024] ALPRAZolam (XANAX) 0.5 mg tablet Take 1 tablet by mouth at bedtime as needed for up to 120 days. Patient should start on December 10, 2024. blood sugar diagnostic (TRUE METRIX GLUCOSE TEST STRIP) test strip Test blood sugars twice a day DX: E11.65 Insulin: No Use as instructed [START ON 12/10/2024] gabapentin (NEURONTIN) 300 mg capsule Take 2 capsules by mouth two times a day for 180 days. Patient should start on December 10, 2024. glipiZIDE (GLUCOTROL) 5 mg tablet Take 1 tablet by mouth once daily. May take extra half to whole pill daily as needed for blood sugar over 200 ipratropium (ATROVENT) 0.02 % nebulizer solution Use 2.5 mL via nebulizer four times a day as needed. Unit dose pack of [address] (PROTONIX) 20 mg tablet Take 1 tablet by mouth two times a day. Take on empty stomach, 1/2 hr before meal. As directed potassium chloride (K-TAB) 10 mEq tablet Take 1 tablet by mouth daily with breakfast. amLODIPine (NORVASC) 5 mg tablet Take 1 tablet by mouth once daily. albuterol HFA (VENTOLIN HFA) 90 mcg/actuation inhaler Inhale 2 Puffs as instructed every 4 hours as needed. Alpha Lipoic Acid 600 mg cap Take 600 mg by mouth once daily. (Patient not taking: Reported on 11/18/2024) No current facility-administered medications for this visit. Review of Systems Objective BP 120/70 (BP Site: Left Arm, BP Position: Sitting, BP Cuff Size: Large Adult) Pulse 75 Temp 36.4 C (97.6 F) (Temporal) Resp 16 Ht 167.6 cm (5' 6) Wt 87.7 kg (193 lb 5.5 oz) SpO2 98% BMI 31.21 kg/m Last 5 Encounter Wt Readings: Date: Wt: 11/18/2024 87.7 kg (193 lb 5.5 oz) 08/12/2024 87.4 kg (192 lb 10.9 oz) 08/01/2024 88 kg (194 lb 0.1 oz) 07/29/2024 86.6 kg (191 lb) 07/29/2024 87 kg (191 lb 12.8 oz) No waist measurement recorded Estimated body mass index is 31.21 kg/m as calculated from the following: Height as of this encounter: 167.6 cm (5' 6). Weight as of this encounter: 87.7 kg (193 lb 5.5 oz). Last 5 Encounter BP Readings: Date: BP: 11/18/2024 120/70 08/12/2024 142/81 08/11/2024 136/74 08/01/2024 122/68 07/29/2024 109/74 Physical Exam Constitutional: Appearance: Normal appearance. HENT: Head: Normocephalic. Eyes: Conjunctiva/sclera: Conjunctivae normal. Cardiovascular: Rate and Rhythm: Normal rate and regular rhythm. Heart sounds: Normal heart sounds. Comments: Trace pretibial pitting edema. Right lateral ankle with swelling more than left. Pulmonary: Effort: Pulmonary effort is normal. Breath sounds: No stridor. Wheezing (few scattered) present. No rhonchi or rales. Musculoskeletal: Right lower leg: Edema present. Left lower leg: Edema present. Skin: General: Skin is warm and dry. Neurological: General: No focal deficit present. Mental Status: She is alert and oriented to person, place, and time. Psychiatric: Attention and Perception: Attention and perception normal. Mood and Affect: Mood and affect normal. Speech: Speech normal. Behavior: Behavior normal. Thought Content: Thought content normal. Cognition and Memory: Cognition and memory normal. Judgment: Judgment normal. Assessment and Plan # Type 2 diabetes mellitus with diabetic neuropathy, without long-term current use of insulin (HCC) (E11.40) # Neuropathy (G62.9) - Neuropathy symptoms persistent; previously discontinued alpha lipoic acid after one month without perceived benefit. - Educated on the need for extended use of alpha lipoic acid to observe therapeutic effects on neuropathy. - Recommended resuming alpha lipoic acid 600 mg daily. - Ordered comprehensive metabolic panel to assess current A1c levels. # Essential hypertension (I10) # Bilateral leg edema (R60.0) - Recent medication adjustments by cardiology include carvedilol 25 mg BID and amlodipine 5 mg BID. - Amlodipine discontinued due to significant peripheral edema. - Reintroduced furosemide 20 mg daily to manage edema and assist in blood pressure control. - Advised monitoring blood pressure at home; instructed to use half a tablet of amlodipine if BP exceeds 170/90 mmHg. - Ordered follow-up labs in 1-2 weeks to monitor renal function and electrolytes post-furosemide initiation. # Moderate persistent asthma without complication (J45.40) # Chronic obstructive pulmonary disease with (acute) exacerbation (HCC) (J44.1) - Recent increase in wheezing and chest tightness; utilizing nebulizer treatments every four hours. - Albuterol inhaler prescription adjusted to comply with insurance quantity limits; ordered 6.7 g inhaler. - Continue current asthma and COPD management regimen. # Anxiety and depression (F41.9) - Alprazolam prescription refilled and sent to [facility]. - Continue current management. Willam Estrada MD documented in this encounter [facility] 11-11-2024 Procedure note [facility] 10-30-2024 Evaluation note Diagnosis Onset Date Resolution Hypertension chronic October 4:01pm Degenerative disc disease, lumbar acute November 16, 2024 3:32pm Degenerative spondylolisthesis noneactive November 16 3:32pm Cervical myelopathy acute December 24, 2024 2:06pm Degenerative disc disease, lumbar acute December 24, 2024 2:06pm Lumbar stenosis with neurogenic claudication acute December 242024 2:06pm [facility] Work Phone: [phone] Telephone encounter Note* Telephone Encounter - Mirlande Amin LPN - 09/14/2024 1:54 PM EST Duplicate, Lisinopril refilled 09/14/2024. Mirlande Amin LPN [facility]01-06-2025 Miscellaneous Notes* Telephone Encounter - Mirlande Amin LPN - 09/14/2024 1:54 PM EST Duplicate, Lisinopril refilled 09/14/2024. Mirlande Amin LPN documented in this encounterUniversity [facility] Telephone encounter Note * Telephone Encounter - Mirlande Amin LPN - 09/14/2024 1:53 PM EST Patient has been identified by name and date of : Yes Patient phones for refill(s): Requested Prescriptions Pending Prescriptions Disp Refills fluticasone (FLONASE) 50 mcg/actuation nasal spray 1 Each 5 Sig: Use 2 Sprays in each nostril once daily as needed for cold/allergy symptoms. Rinse mouth afteruse. Date of last office visit in primary care: 08/12/2024 Date of next office visit in primary care: 09/16/2024 Please advise. Thank you. Mirlande Amin LPN. [facility]01-06-2025 Miscellaneous Notes* Telephone Encounter - Mirlande Amin LPN - 09/14/2024 1:53 PM EST Patient has been identified by name and date of : Yes Patient phones for refill(s): Requested Prescriptions Pending Prescriptions Disp Refills fluticasone (FLONASE) 50 mcg/actuation nasal spray 1 Each 5 Sig: Use 2 Sprays in each nostril once daily as needed for cold/allergy symptoms. Rinse mouth afteruse. Date of last office visit in primary care: 08/12/2024 Date of next office visit in primary care: 09/16/2024 Please advise. Thank you. Mirlande Amin LPN. documented in this encounterUniversity [facility] Telephone encounter Note * Telephone Encounter - Ashley Hernandez RN - 09/11/2024 10:39 AM EST Previous medication was sent over as med update. Prescription was not sent to pharmacy. The patient has been identified by name and date of : Yes Caregiver verified no other encounters exist for this prescription request: Yes Caregiver confirmed with patient/requestor that no other refills are due, in the near future, with this provider at this time: Yes The last office visit in the department: 08/12/2024 Does the patient have a future office visit with this provider/department: Yes 09/16/2024 Requested Prescriptions Pending Prescriptions Disp Refills lisinopril (ZESTRIL) 20 mg tablet 60 tablet 11 Sig: Take 1 tablet by mouth two times a day. Ashley Hernandez RN September 11, 2024 10:40 AM [facility]01-03-2025 Miscellaneous Notes* Telephone Encounter - Ashley Hernandez RN - 09/11/2024 10:39 AM EST Previous medication was sent over as med update. Prescription was not sent to pharmacy. The patient has been identified by name and date of : Yes Caregiver verified no other encounters exist for this prescription request: Yes Caregiver confirmed with patient/requestor that no other refills are due, in the near future, with this provider at this time: Yes The last office visit in the department: 08/12/2024 Does the patient have a future office visit with this provider/department: Yes 09/16/2024 Requested Prescriptions Pending Prescriptions Disp Refills lisinopril (ZESTRIL) 20 mg tablet 60 tablet 11 Sig: Take 1 tablet by mouth two times a day. Ashley Hernandez RN September 11, 2024 10:40 AM documented in this encounterUniversity [facility]12[facility] Evaluation note* Diagnosis Onset Date Resolution Status Admit Date Cervical myelopathy acute Decem 2023 3:32pm Hypertension chronic October 4:01pm Degenerative disc disease, lumbar acute November 16, 2024 3:32pm Degenerative spondylolisthesis nonea ctive November 16, 2024 3:32pm [facility] Work Phone: [phone]) 160-761612-17-2024 [facility] History of Present illness Narrative* Kati Grant LSW - 08/25/2024 12:26 PM EST Value Based Social Work Progress Note Provider Action / FYI PCP Action none Date of Service: 08/25/2024 Patient identified by name/: Yes- via Telephone Referral Source: Referral Patient Outreach: Follow Up Mode of Outreach: Phone Call Response Time: Contact made Patient Needs: In-Home Support Community Resources Assessment: Follow up call to ensure appointment/in home assessment was scheduled. Action Taken: Supportive listening Follow up call with patient Is Patient ready for discharge? Yes Social Barrier resolution or patient discharge reason: Patient declines further contact and Patientfeels she no longer needs services, that she is now managing well. Narrative: Follow up call to patient who states she has not returned the calls of [facility] and that she no longer feels she needs any additional services in the home. She declines any further assistance feeling it is not warranted. Interventions: Advocacy Assessment Discharge from PCSW panel Stakeholder collaboration Follow up calls to collaborators BOLIVAR Doan August 25, 2024 12:38 PM documented in this encounterUniversity [facility]12-09-2024 [facility]12-09[facility]2024 History of Present illness Narrative* Kati Grant LSW - 08/17/2024 3:28 PM EST Value Based Social Work Progress Note Provider Action / FYI PCP Action none Date of Service: 08/17/2024 Patient identified by name/: Yes- via Telephone Referral Source: Referral Patient Outreach: Follow Up and call to patient re referral to [facility] for resources Mode of Outreach: Phone Call Response Time: Unable to reach (Final Attempt) Left message by: Voicemail BOLIVAR Doan August 17, 2024 3:29 PM documented in this encounterUniversity [facility]als [facility]12-06-2024 NoteK[facility]12-[facility] History of Present illness Narrative* Alyssa Hathaway RN - 08/14/2024 2:58 PM EST Transitional Care Management (TCM) Follow-Up Note PCP Update / Actionable Items N/A - No specialty updates needed Patient Source: [id number] (OON) Discharge Outreach Summary: Pt was seen with pulmonary and PCP office this week. Rx Doxy , having nausea constantly but taking and eating bland foods. Pulse ox is 98% on RA. Denies fever, chills. Has some ongoing intermittent chest tightness. Feels overall SOB is improving. Discussed and reiterated the importance of maintaining nicotine cessation and using inhalers, nebulizer treatments. Pt reassured, discussed red flags of fever, chills, dyspnea to return to the Er. Provided TCM # for any questions- Pt. encouraged to call PCP with any questions or concerns. Patient discharged from [facility]. Discharge date: 08/05 [facility] Admitted for: urinary urgency , pneumonia Readmission Risk: n/a Value-Based Contract: ACO Contact: Contact made with patient: Yes Spoke to: Patient Validation: Validated the person spoken to is actively involved in the patient's care. The patient was identified by Name and Date of . I'd like to get an update on how you're doing since our last phone call. Is now a good time to talk? Yes Symptoms: Are you feeling about the same, better or worse since leaving the hospital? Better Weekly Outreach: 1st Outreach Medications: Do you have any questions about taking your medications, including which medications you should be on, or do you need refills on your medications? No Patient Questions / Concerns: Do you have any questions related to your discharge? No Appointment / TCM Follow-Up: Have you had a follow-up visit with your Primary Care Provider or Specialist since you were discharged? Yes Do you need any assistance with scheduling or changing your follow-up appointments? Patient alreadyhas an appointment scheduled Education Patient and family educated on issues/questions related to reason for admission, transition of caretopics, and follow-up needed upon discharge. Targets addressed / completed during outreach: Patient has TCM appointment with PC within 14 days Outreach Outcome: Continue TCM Outreach for remainder of 30 days Care Management partners utilized: N/A Alyssa Hathaway RN August 14, 2024 3:03 PM documented in this encounterUniversity Hospitals [facility]12-04-2024 NoteK[facility]12-04-2024 History of Present illness Narrative* Deanna Pagan, SECTION LEADER SCREEN PRINTING.PARTS DEPARTMENT MANAGER - 08/12/2024 4:19 PM EST CC: Patient presents with: ER F/U: [facility] 08/02/24-Pneumonia & Hypotension HPI Garland De Santiago is a 64 year old female who presents today for above. She was admitted to [facility] 08/02 to 08/05 for hypotension secondary to dehydration and GRACIELA due to medications. Initially thought to be due to urosepsis however cultures came back negative. HCTZ was discontinued and Lisinopril doselowered from 40 to 20 mg a day. She returned to [facility] ER that same day she was discharged with weakness, fever and SOB. CTA revealed multifocal pneumonia, negative for PE. She was discharged home on Levaquin. She presented again to [facility] ER on 08/09 with chest tightness and leg pain. Repeat CT showed worsening bilateral pneumonia and new finding of bilateral pleural effusions. She completed the courseof Levaquin from previous ER visit, discharged home this time on doxycycline and cefuroxime. Steroids recommended but she declined to side effects including hyperglycemia. She was evaluated by tax staff accountant yesterday. Cefuroxime was discontinued due to itching and course of doxycycline was extendedto two weeks. Labs ordered and possible need for bronchoscopy was discussed. Patient's main concern today is elevated blood pressures since discharged on 08/05. She is checkingat home with average 140's-150's/80's. BNP ordered by tax staff accountant was slightly elevated. Patient denies history of CHF. She sees [facility] and Lasix was discontinued by aligner typewriter months ago. Denies chest pain, headaches, palpitations, worsening SOB, edema, PND, orthopnea, rapid weight gain. Review of Systems See HPI PAST MEDICAL HISTORY Diagnosis Date Allergic rhinitis, cause unspecified 02/10/2007 Anxiety Arthritis Asthma 02/10/2007 Depression Psychiatrist managing (Dr. Bedolla) DM type 2 (diabetes mellitus, type 2) ([facility]) Essential hypertension 05/23/2006 Hemorrhage of gastrointestinal tract, unspecified 12/13/2011 Had bleeding hemorrhoids in 2011; normal colonoscopy Internal hemorrhoids without mention of complication 12/13/2011 Mixed hyperlipidemia 05/23/2006 Obesity (BMI 30.0-34.9) YARY (obstructive sleep apnea) Uses BiPAP occasionally Other nonspecific abnormal finding 05/23/2006 CK Elevation Snoring PAST SURGICAL HISTORY Procedure Laterality Date ADENOIDECTOMY PRIMARY <AGE 12 Adenoidectomy ANTERIOR COLPORRAPHY RPR CYSTOCELE W/CYSTO Cystocele repair APPENDECTOMY APPENDECTOMY HX ARTHRP KNE CONDYLE&PLATU MEDIAL&LAT COMPARTMENTS 07/10/2015 right BACK SURGERY HX COLONOSCOPY 02/22/2022 COLONOSCOPY FLX DX W/COLLJ SPEC WHEN PFRMD 12/13/2011 Colonoscopy repeat 10 years EGD W/O [facility] SPEC VARICIES INJ 02/22/2022 ESOPHAGOGASTRODUODENOSCOPY TRANSORAL DIAGNOSTIC 02/09/2016 EGD INCISE FINGER TENDON SHEATH Right 08/10/2021 Right ring trigger finger release JOINT REPLACEMENT HX LAPS ABD PRTM&OMENTUM DX W/WO SPEC BR/WA SPX Laparoscopy LAPS SURG CHOLECYSTECTOMY W/CHOLANGIOGRAPHY 10/07/2006 LIG/TRNSXJ FLP TUBE ABDL/VAG APPR UNI/BI Tubal ligation PAST SURGICAL HISTORY OF 06/22/2010 right knee arthroscopy- by Dr Dawson ([facility]) PAST SURGICAL HISTORY OF 04/27/2020 low back surgery at [facility];s/p L4 laminectomy, decompression of L4-5 canal stenosis with bilateral L4,L5 root foraminotomies TONSILLECTOMY PRIMARY/SECONDARY <AGE 12 Tonsillectomy VAGINAL HYSTERECTOMY UTERUS 250 GM/< Hysterectomy, vaginal for menorrhagia ALLERGIES Cephalosporins, Dilaudid [Hydromorphone (Bulk)], Doxycycline, Dust Mites, Omnicef [Cefdinir], Paxil [Paroxetine], Penicillins, Prednisone, Prozac [Fluoxetine Hcl], Pseudoephedrine, and Vicodin [Hydrocodone-Acetaminophen] MEDICATIONS doxycycline hyclate (VIBRAMYCIN) 100 mg capsule Take 1 capsule (100 mg) by mouth two times a day for 14 days. Alpha Lipoic Acid 600 mg cap Take 600 mg by mouth once daily. glipiZIDE (GLUCOTROL) 5 mg tablet Take 1 tablet (5 mg) by mouth once daily. May take extra half to whole pill daily as needed for blood sugar over 200 ibuprofen (MOTRIN) 600 mg tablet Take 1 tablet by mouth two times a day as needed for pain. pantoprazole DR (PROTONIX) 20 mg tablet Take 1 tablet by mouth two times a day. Take on empty stomach, 1/2 hr before meal. As directed ALPRAZolam (XANAX) 0.5 mg tablet Take 1 tablet by mouth at bedtime as needed for up to 120 days. Patient should start on August 11, 2024. albuterol HFA (VENTOLIN HFA) 90 mcg/actuation inhaler Inhale 2 Puffs as instructed every 4 hours asneeded. fluticasone-vilanterol (BREO ELLIPTA) 200-25 mcg/dose inhaler Inhale 1 Inhalation as instructed once daily. gabapentin (NEURONTIN) 300 mg capsule Take 2 capsules by mouth two times a day for 180 days. fluticasone (FLONASE) 50 mcg/actuation nasal spray Use 2 Sprays in each nostril once daily as needed for cold/allergy symptoms. Rinse mouth after use. COVID-19 antigen test (COVID-19 AT-HOME TEST) kit Use as directed for signs and symptoms of COVID busPIRone (BUSPAR) 15 mg tablet Take 0.5 tablets by mouth two times a day. gemfibrozil (LOPID) 600 mg tablet Take 1 tablet by mouth two times a day. metFORMIN ER (GLUCOPHAGE XR) 500 mg 24 hr tablet Take 1 tablet by mouth two times a day before meals. sertraline (ZOLOFT) 100 mg tablet Take 2 tablets by mouth once daily. traZODone (DESYREL) 100 mg tablet Take 1 tablet by mouth daily at bedtime. albuterol (PROVENTIL) 2.5 mg /3 mL (0.083 %) nebulizer solution Use 3 mL via nebulizer every 4 hours as needed for wheezing/shortness of breath. ipratropium (ATROVENT) 0.02 % nebulizer solution Use 2.5 mL via nebulizer four times a day as needed. Unit dose pack of 50 carvedilol (COREG) 6.25 mg tablet Take 6.25 mg by mouth two times a day with meals. BIPAP Initiate BiPAP @ 20/14 cm of water with heated humidification. Ti Max 1.0, Ti Min 0.3, trigger medium, cycle high. Mask (medium AirFit F10 full face mask or per patient preference) optional chin strap (if indicated) , filters, tubing, humidifier and lifetime supplies. potassium chloride (K-TAB) 10 mEq tablet Take 1 tablet by mouth daily with breakfast. lisinopril (ZESTRIL) 20 mg tablet Take 1 tablet by mouth two times a day. (Patient taking differently: Take 20 mg by mouth once daily.) blood sugar diagnostic (TRUE METRIX GLUCOSE TEST STRIP) test strip Test blood sugars twice a day DX: E11.65 Insulin: No Use as instructed Nebulizer and Compressor For Neb Use for albuterol and ipratropium nebulizer treatments every 4 hours as needed Lancets lancets Test blood sugar(s) 2 times daily. Dx: Type 2 DM - Uncontrolled .65 Insulin: No Blood-Glucose Meter monitoring kit Insurance covered or per patient choice. Test blood sugar twice daily plus as needed for symptoms of blood sugars being too high or low. Dx: Type 2 DM - Uncontrolled E11.65 Insulin:No Nebulizer NEBULIZER FOR HOME USE. DX: J45.42 predniSONE (DELTASONE) 10 mg tablet Take two a day for one week then one a day for one week then stop (Patient not taking: Reported on 08/12/2024) hydroCHLOROthiazide 25 mg tablet Take 1 tablet by mouth once daily. (Patient not taking: Reported on 08/12/2024) nicotine (NICODERM) 14 mg/24 hr Apply 1 Patch as directed every 24 hours. No smoking with patch. (Patient not taking: Reported on 08/01/2024) xfaorp-krbxumbh-dxwvcqp (CREON 24) 24,000-76,000 -120,000 unit delayed release capsule Take 1 capsule by mouth with meals. With snacks and meals (Patient not taking: Reported on 08/01/2024) ursodiol (ACTIGALL) 300 mg capsule Take 300 mg by mouth two times a day. (Patient not taking: Reported on 08/12/2024) Vitamin E, dl, acetate, (VITAMIN E) 400 unit capsule Take 800 Units by mouth once daily. (Patient not taking: Reported on 08/12/2024) FAMILY HISTORY Problem Relation Age of Onset Hypertension Mother history of glaucoma Cervical Cancer Mother Asthma Mother Heart Father CO x 2 Cancer Father Lung, metastatic to bone, age 77 other (aortic aneurysm) Father 50 Colon Polyps Sister Thyroid Sister Hypothyroidism Thyroid Sister Cancer Sister Lung, LLL. Resected. No Known Problems Daughter No Known Problems Son Social History Tobacco Use Smoking status: Every Day Current packs/day: 1.50 Average packs/day: 1.5 packs/day for 36.0 years (54.0 ttl pk-yrs) Types: Cigarettes Smokeless tobacco: Never Tobacco comments: Working on smoking cessation. Trying every day to quit and down to 8-9 cigarettes daily and quit smoking in the house Vaping Use Vaping status: Never Used Substance Use Topics Alcohol use: No Drug use: No BP 142/81 Pulse 89 Temp (!) 35.8 C (96.4 F) (Temporal) Resp 24 Wt 87.4 kg (192 lb 10.9 oz) SpO2 98% BMI 31.10 kg/m Physical Exam Vitals reviewed. Constitutional: General: She is not in acute distress. Appearance: Normal appearance. She is not ill-appearing. Cardiovascular: Rate and Rhythm: Normal rate and regular rhythm. Heart sounds: Normal heart sounds. No murmur heard. Pulmonary: Effort: Pulmonary effort is normal. Breath sounds: Decreased breath sounds and wheezing (diffusely) present. Musculoskeletal: Right lower leg: No edema. Left lower leg: No edema. Skin: General: Skin is warm and dry. Neurological: Mental Status: She is alert. Psychiatric: Mood and Affect: Mood normal. I have reviewed the patient s records from [facility] including diagnostic testing performed, their discharge medications, and my assessment and plan with the patient and any family members present at todays visit. ASSESSMENT/PLAN: 1. Essential hypertension - ICD9: 401.9, ICD10: I10 (primary diagnosis) - Worsening control - Increase Lisinopril back to 20 mg BID. Will hold off on restarting HCTZ for now. Continue with Coreg as prescribed by cardiology. - Recommend home blood pressure monitoring, to bring results to next visit - Encouraged sodium restriction, DASH or Mediterranean diet - Follow up in 4 weeks for hypertension visit 2. GRACIELA (acute kidney injury) (HCC) - ICD9: 584.9, ICD10: N17.9 Resolved on most recent labs done at [facility] ER 08/09 3. Elevated brain natriuretic peptide (BNP) level - ICD9: 790.99, ICD10: R79.89 Possibly secondary to recent GRACIELA. No signs or symptoms consistent with CHF. Follow-up with pulmonology as advised. 4. Multifocal pneumonia - ICD9: 486, ICD10: J18.9 Symptoms improved. Follow-up with pulmonology as advised Prescription instructions reviewed with patient as applicable. Potential red flag symptoms discussed with the patient. Reviewed appropriate action plan to take if red flag symptoms occur. Patient agreeable to treatment plan. Deanna Pagan APRN.PARTS DEPARTMENT MANAGER documented in this encounterUniversity Hospitals Beachwood [facility] Center12-03-2024 Instructions* Patient Instructions* Mona Corrigan MD - 08/11/2024 3:17 PM EST Two week course of Doxycycline Monitor glucose levels Stop Cefuroxime documented in this encounterUniversity Hospitals Beachwood [facility]12-03-2024 History of Present illness Narrative* Mona Corrigan MD - 08/11/2024 2:45 PM EST Images from the original note were not included. . [facility] [place] Note Patient name: Garland De Santiago PCP: Willam Estrada MD CC: Persistent PNA HPI: Garland De Santiago 64 year old female current 36 pack year smoker with PMH significant for allergies, asthma, DM, HTN, YARY non-compliant with BiPAP. She presents today with complaints of persistent PNA. She was hospitalized at [facility] 08/02/24 for possible urosepsis. Presented with hypotension. CXRshowed atelectasis. Treated with IV Levaquin and discharged on Macrobid. Seen in ED 08/05 for SOB and low grade temperature, fatigue, diffuse myalgias. COVID/influenza/RSV negative. CTA chest showed bilateral infiltrates consistent with PNA. She declined admission and was sent home with Levaquin. Seen again yesterday for ongoing complaints of non-productive cough, low grade temp, poor appetite, leg pain with concerns for possible DVT. D-dimer elevated CXR showed bilateral pulmonary infiltrates and subsequent repeat CTA negative for PE but worsening bilateral ground glass infiltrates and smallpleural effusions. Laboratory testing also notable for peripheral eosinophilia. She refused treatment with steroids and was sent out on doxycycline and cefuroxime. Has known allergy to cephalosporins. No rash but has developed pruritus. She continues to feel unwell, dry cough, diffuse body aches, fatigue, poor appetite. No known exposures, recent travel. No diarrhea, sore throat, chest pain. DATA: Labs: WBC 11.8 with 13% Eo Imaging / Diagnostic Studies: Chest CT shows bilateral ground glass infiltrates, more on right than left side and bilateral smalleffusions PAST MEDICAL HISTORY Diagnosis Date Allergic rhinitis, cause unspecified 02/10/2007 Anxiety Arthritis Asthma 02/10/2007 Depression Psychiatrist managing (Dr. Bedolla) DM type 2 (diabetes mellitus, type 2) (HCC) Essential hypertension 05/23/2006 Hemorrhage of gastrointestinal tract, unspecified 12/13/2011 Had bleeding hemorrhoids in 2011; normal colonoscopy Internal hemorrhoids without mention of complication 12/13/2011 Mixed hyperlipidemia 05/23/2006 Obesity (BMI 30.0-34.9) YARY (obstructive sleep apnea) Uses BiPAP occasionally Other nonspecific abnormal finding 05/23/2006 CK Elevation Snoring ALLERGIES Allergen Reactions Cephalosporins Rash Dilaudid [Hydromorp* Mental Status Change Doxycycline GI Upset Sharp pains in stomach Dust Mites Omnicef [Cefdinir] Hives Paxil [Paroxetine] Intolerance excessive sweating Penicillins Hives, Other: See Comments Any medication with penicillin in it. Had been given amoxicillin in 2011 and had reaction Given test dose of 2cc's on 08/17/2019 causing sever flushing along with hypotension Prednisone Intolerance Elevated BS, ER Prozac [Fluoxetine * Mental Status Change, Diarrhea Pseudoephedrine Intolerance Heart racing Vicodin [Hydrocodon* GI Upset doxycycline hyclate (VIBRAMYCIN) 100 mg capsule Take 1 capsule (100 mg) by mouth two times a day for 14 days. predniSONE (DELTASONE) 10 mg tablet Take two a day for one week then one a day for one week then stop Alpha Lipoic Acid 600 mg cap Take 600 mg by mouth once daily. glipiZIDE (GLUCOTROL) 5 mg tablet Take 1 tablet (5 mg) by mouth once daily. May take extra half to whole pill daily as needed for blood sugar over 200 ibuprofen (MOTRIN) 600 mg tablet Take 1 tablet by mouth two times a day as needed for pain. hydroCHLOROthiazide 25 mg tablet Take 1 tablet by mouth once daily. pantoprazole DR (PROTONIX) 20 mg tablet Take 1 tablet by mouth two times a day. Take on empty stomach, 1/2 hr before meal. As directed ALPRAZolam (XANAX) 0.5 mg tablet Take 1 tablet by mouth at bedtime as needed for up to 120 days. Patient should start on August 11, 2024. albuterol HFA (VENTOLIN HFA) 90 mcg/actuation inhaler Inhale 2 Puffs as instructed every 4 hours asneeded. fluticasone-vilanterol (BREO ELLIPTA) 200-25 mcg/dose inhaler Inhale 1 Inhalation as instructed once daily. gabapentin (NEURONTIN) 300 mg capsule Take 2 capsules by mouth two times a day for 180 days. fluticasone (FLONASE) 50 mcg/actuation nasal spray Use 2 Sprays in each nostril once daily as needed for cold/allergy symptoms. Rinse mouth after use. COVID-19 antigen test (COVID-19 AT-HOME TEST) kit Use as directed for signs and symptoms of COVID busPIRone (BUSPAR) 15 mg tablet Take 0.5 tablets by mouth two times a day. gemfibrozil (LOPID) 600 mg tablet Take 1 tablet by mouth two times a day. metFORMIN ER (GLUCOPHAGE XR) 500 mg 24 hr tablet Take 1 tablet by mouth two times a day before meals. sertraline (ZOLOFT) 100 mg tablet Take 2 tablets by mouth once daily. traZODone (DESYREL) 100 mg tablet Take 1 tablet by mouth daily at bedtime. nicotine (NICODERM) 14 mg/24 hr Apply 1 Patch as directed every 24 hours. No smoking with patch. (Patient not taking: Reported on 08/01/2024) albuterol (PROVENTIL) 2.5 mg /3 mL (0.083 %) nebulizer solution Use 3 mL via nebulizer every 4 hours as needed for wheezing/shortness of breath. ipratropium (ATROVENT) 0.02 % nebulizer solution Use 2.5 mL via nebulizer four times a day as needed. Unit dose pack of 50 carvedilol (COREG) 6.25 mg tablet Take 6.25 mg by mouth two times a day with meals. BIPAP Initiate BiPAP @ 20/14 cm of water with heated humidification. Ti Max 1.0, Ti Min 0.3, trigger medium, cycle high. Mask (medium AirFit F10 full face mask or per patient preference) optional chin strap (if indicated) , filters, tubing, humidifier and lifetime supplies. potassium chloride (K-TAB) 10 mEq tablet Take 1 tablet by mouth daily with breakfast. hsgzxk-pxsfnqud-cpsajql (CREON 24) 24,000-76,000 -120,000 unit delayed release capsule Take 1 capsule by mouth with meals. With snacks and meals (Patient not taking: Reported on 08/01/2024) lisinopril (ZESTRIL) 20 mg tablet Take 1 tablet by mouth two times a day. blood sugar diagnostic (TRUE METRIX GLUCOSE TEST STRIP) test strip Test blood sugars twice a day DX: E11.65 Insulin: No Use as instructed Nebulizer and Compressor For Neb Use for albuterol and ipratropium nebulizer treatments every 4 hours as needed ursodiol (ACTIGALL) 300 mg capsule Take 300 mg by mouth two times a day. Vitamin E, dl, acetate, (VITAMIN E) 400 unit capsule Take 800 Units by mouth once daily. Lancets lancets Test blood sugar(s) 2 times daily. Dx: Type 2 DM - Uncontrolled E11.65 Insulin: No Blood-Glucose Meter monitoring kit Insurance covered or per patient choice. Test blood sugar twice daily plus as needed for symptoms of blood sugars being too high or low. Dx: Type 2 DM - Uncontrolled E11.65 Insulin:No Nebulizer NEBULIZER FOR HOME USE. DX: J45.42 Social History Tobacco Use Smoking status: Every Day Current packs/day: 1.50 Average packs/day: 1.5 packs/day for 36.0 years (54.0 ttl pk-yrs) Types: Cigarettes Smokeless tobacco: Never Tobacco comments: Working on smoking cessation. Trying every day to quit and down to 8-9 cigarettes daily and quit smoking in the house Vaping Use Vaping status: Never Used Substance Use Topics Alcohol use: No Drug use: No FAMILY HISTORY Problem Relation Age of Onset Hypertension Mother history of glaucoma Cervical Cancer Mother Asthma Mother Heart Father CO x 2 Cancer Father Lung, metastatic to bone, age 77 other (aortic aneurysm) Father 50 Colon Polyps Sister Thyroid Sister Hypothyroidism Thyroid Sister Cancer Sister Lung, LLL. Resected. No Known Problems Daughter No Known Problems Son PAST SURGICAL HISTORY Procedure Laterality Date ADENOIDECTOMY PRIMARY <AGE 12 Adenoidectomy ANTERIOR COLPORRAPHY RPR CYSTOCELE W/CYSTO Cystocele repair APPENDECTOMY APPENDECTOMY HX ARTHRP KNE CONDYLE&PLATU MEDIAL&LAT COMPARTMENTS 07/10/2015 right BACK SURGERY HX COLONOSCOPY 02/22/2022 COLONOSCOPY FLX DX W/COLLJ SPEC WHEN PFRMD 12/13/2011 Colonoscopy repeat 10 years EGD W/O [facility] SPEC VARICIES INJ 02/22/2022 ESOPHAGOGASTRODUODENOSCOPY TRANSORAL DIAGNOSTIC 02/09/2016 EGD INCISE FINGER TENDON SHEATH Right 08/10/2021 Right ring trigger finger release JOINT REPLACEMENT HX LAPS ABD PRTM&OMENTUM DX W/WO SPEC BR/WA SPX Laparoscopy LAPS SURG CHOLECYSTECTOMY W/CHOLANGIOGRAPHY 10/07/2006 LIG/TRNSXJ FLP TUBE ABDL/VAG APPR UNI/BI Tubal ligation PAST SURGICAL HISTORY OF 06/22/2010 right knee arthroscopy- by Dr Dawson ([facility]) PAST SURGICAL HISTORY OF 04/27/2020 low back surgery at [facility];s/p L4 laminectomy, decompression of L4-5 canal stenosis with bilateral L4,L5 root foraminotomies TONSILLECTOMY PRIMARY/SECONDARY <AGE 12 Tonsillectomy VAGINAL HYSTERECTOMY UTERUS 250 GM/< Hysterectomy, vaginal for menorrhagia PMH, Social history, family history and surgical history reviewed and updated in EMR REVIEW OF SYSTEMS: CONSTITUTIONAL: Low grade fevers, fatigue, myalgias. No night sweats HEENT: Denies nasal congestion/sinus symptoms. Headaches EYES: No visual changes CARDIOVASCULAR: No chest pain, significant dyspnea, palpitations, edema. PULM: See HPI GI: No diarrhea, changes in stool habits, abdominal pain. Poor appetite : No urinary complaints NEURO: No balance problems, peripheral weakness/paresthesias or numbness of concern. MUSC-SKEL: No new joint pain, swelling, or erythema. INTEGUMENTARY: No rash. Pruritis PHYSICAL EXAMINATION: BP 136/74 Pulse 88 Resp 20 SpO2 98% General Appearance: Age appropriate, NAD. Skin: Dry skin Head: Normocephalic, no masses, lesions, tenderness or abnormalities. Eyes: Sclera, conjunctiva normal. Oropharynx: No lesions or erythema. Neck: No adenopathy. Lungs: Not labored, normal to percussion, no wheezes. Heart: RRR, no murmur. Extremities: No edema, no clubbing. Assessment/Plan: Multifocal PNA -Imaging consistent with viral pneumonitis or Mycoplasma -She was not tested for extended respiratory viral panel -Discontinue cefuroxime (allergy). Longer course of doxycycline -Recent use of Nitrofurantoin brings up possibility of pulmonary toxicity, especially in light of peripheral eosinophilia. Patient agreeable to use of oral steroids which will also treat severe CAP. She will monitor her glucose levels -May need bronchoscopy Pleural effusions -Check BNP -Cardiology had discontinued Lasix Cigarette smoker -Current smoker -Cessation is paramount Mona Corrigan MD [facility] [place] documented in this encounterUniversity Hospitals Beachwood [facility]12-03-2024 NoteKet[facility]12-02-2024 NoteKettering [facility]12-02-2024 History of Present illness Narrative* Centrackio, Kati, ANALYTICS LEADER - 08/10/2024 4:08 PM EST Value Based Social Work Progress Note Provider Action / FYI PCP Action none Date of Service: 08/10/2024 Patient identified by name/: Yes- via Telephone Referral Source: Referral Patient Outreach: Follow Up Mode of Outreach: Phone Call Response Time: Unable to reach (2nd Attempt) Left message by: Voicemail BOLIVAR Doan August 10, 2024 4:09 PM documented in this encounterUniversity Hospitals Beachwood [facility] Center12-02-2024 Telephone encounter Note * Telephone Encounter - Deena Flynn LPN - 08/10/2024 11:40 AM EST Patient called in and states she has been in the hospital several times and now has pneumonia and pleural effusion. She was told to get an appt with pulmonary SONIA. Transferred patient to schedulers to get an appt. Deena Flynn LPN [facility]12-02-2024 Miscellaneous Notes* Telephone Encounter - Deena Flynn LPN - 08/10/2024 11:40 AM EST Patient called in and states she has been in the hospital several times and now has pneumonia and pleural effusion. She was told to get an appt with pulmonary SONIA. Transferred patient to schedulers to get an appt. Deena Flynn LPN documented in this encounterUniversity Hospitals Beachwood Medical Center11-29-2024 NoteKettering Health Behavioral [facility] Center11-29-2024 History of Present illness Narrative* Alyssa Hathaway RN - 08/07/2024 2:41 PM EST Transition Care Management (TCM) Initial Outreach PCP Update / Actionable Items HRTIC TCM Home Visit Referral Source of Stratification: TCM HUB Hospital Admission Status: Discharged Readmission Risk Score: n/a Patient's zip code: [address] Is zip code within program service area: No Patient meets program referral criteria: No Patient does not qualify for High Risk TCM Home Visit program due to: Readmission Risk Score does not meet criteria Disposition: Patient does not qualify for HRTIC, will provide TCM outreach follow-up for 30-days Patient Source: Owz-sp-Vwqngxs (OON) Discharge Outreach Summary: Pt reports she was dc'd from [facility] 08/05 then returned to the [facility] ER with fevers and SOB , had a chest CT that showed pneumonia. Taking Levaquin until 08/09, Macrobid was dc'd Denies fevers , chills Has a productive cough. Using inhalers as rx and nebulizer treatments 4 times daily. Encouraged pt to maintain nicotine cessation. Pt states her legs still feel shaky, has some back pain. Encouraged pt to move about the house during the day between rest and fluids. BP today 136/91 States 3 sisters check on her often. Has int med f/u 08/10, Pt. encouraged to call PCP with any questions or concerns. Patient discharged from [facility] Discharge date: 08/05 [facility] Admitted for: urinary urgency , pneumonia Readmission Risk: n/a Value-Based Contract: ACO Copied from 08/02 [facility] notes : Chief Complaint: Suprapubic pain nd urinary frequency, weakness HPI Narrative GARLAND DE SANTIAGO, is a 64 F with a history of GERD, YARY, COPD, tobacco use, depression, chronic diarrhea who presented [facility] ED 08/02/2024 with generally not feeling well with recent diagnosis of UTI. In theED she was noted to have white blood cell count of 20.7, was hypoxic with an O2 sat of 87% on room air, GRACIELA, elevated lactic acid and a blood pressure of 78/47 with a heartrate of 111 and respiratory is 26 and there was concern for sepsis. Patient pancultured and given 30 cc/kg of IV fluid and Levaquin. UA not overtly infectious appearing but patient was started on Macrobid 2 days ago, chest x-ray with a possible infiltrate but patient with no new respiratory symptoms though source was suspected to be 1 of those 2. Blood pressure improved and patient did not require vasopressors so hospitalist contacted for admission. Patient evaluated at bedside and reports thatshe has had little bitof a headache, generalized weakness, urinary frequency for a couple of weeks a ndthen developed suprapubic tenderness a couple days ago and chills prompting her to go to urgent care, she was placed on Macrobid for suspected urinary tract infection but given she continued to worsen she presented to the ED today. Has chronic diarrhea and does not feel this is different than usual. Reports she has some chronic shortness of breath and cough but these are unchanged from previous. Has some low back pain and some right sided neck to shoulder pain which are chronic but sometimes bother her worse than others. Reports this feels similar to her last urinary tract infection that caused patient end up in the hospital 08/05 [facility] : Chief Complaint: Shortness of Breath Informant: patient Narrative Narrative: Patient is a 64-year-old female with history tobacco use, hypertension, GERD, neuropathy, type 2 diabetes mellitus, YARY and COPD with recent admission for AKIand hypotension. Patient was thought to have a sepsis with unknown source and treated with Levaquin while in the hospital. Renal function normalized while inthe emergency room. Patient was discharged today. She states that she got homearound2 PM. She states today she is feeling achy and just not good. She had temperature 100.4 at home. She notes her blood pressure was also elevated. Shestates her legs just feel weak and wobbly. She tried to smoke a cigarette and then felt more short of breath. She called the nurse on-call line who monserrat mmendshe come back to the emergency room. She states that she was discharged home without any antibiotics and told to just resume the Macrobid she was taking but her urine cultures have been negative. She notes a history of rectal bleeding with bowel movement but thinks it is hemorrhoidal. She notes that she has had continued bladder discomfort but thinks it is associated with her Clarke catheter.She does not chronic cough and chronically produces white phlegm. She does not feel that significantly different than normal. She does note she felt short of breath when moving around the house. She denies any swelling of her legs. Denies a history of DVT or PE. No other complaints or concerns reported at this time. Contact: Contact made with patient: Yes Hi, my name is Alyssa Hathaway RN and I am calling from the [facility] on behalf of your Primary Care Provider, Willam Estrada MD. I understand you were recently in the hospital, so I am calling to check in with you to ensure you are feeling well now that you are home. May I ask you a few questions related to your hospital stay and well-being? Yes Spoke to: Patient Validation: Validated the person spoken to is actively involved in the patient's care. The patient was identified by Name and Date of . Symptoms: Are you feeling about the same, better or worse since leaving the hospital? Same Medications: Do you have any questions about taking your medications, including which medications you should be on, or do you need refills on your medications? No Medication Review: Partial mediation review completed, per patient preference Discharge Instructions: Your Discharge Instructions / After Visit Summary (AVS) are important in guiding you through the recovery process. Do you have any questions related to your discharge instructions? No Home Care: Were you discharged with home care? No Equipment: Do you have all the necessary equipment and supplies needed at your home? Yes The patient verbalizes understanding the use of the equipment and supplies Social: We would like to make sure you have what you need so that your basics needs are met - including your personal safety, food, housing and medications. Would you like to speak with a social work steam shovel runner to help give you support for any of these needs? No It can be normal to feel anxious or down during a time like this. Would you like to talk to a mental health professional about how you have been feeling? No Action Taken: No needs verbalized. No action required. Follow-Up Appointment: [Appointment / TCM Follow-up within 14 days] I would like to help you schedule a hospital follow-up virtual or telephone visit with your PCP. This is a great way for you to connect with your provider to ensure you have safely transitioned home.If you are agreeable, I will send your request to a metal building assembler who will contact and assist you with that appointment. This will give you an opportunity to ask any questions or address any concerns youmay have with your PCP. Inform the patient that if they have any questions or concerns prior to that appointment, to call their PCP's office right away. Appointment Action: No action required; patient already has appointment scheduled. Education Patient and family educated on issues/questions related to reason for admission, transition of caretopics, and follow-up needed upon discharge. Targets addressed / completed during outreach: Contact patient within two (2) business days Outreach Outcome: Enrolled in TCM Care Management partners utilized: N/A Alyssa Hathaway RN August 07, 2024 2:51 PM documented in this encounterUniversity Hospitals [facility]11-27-2024 Telephone encounter Note * Telephone Encounter - Yenifer Alberto RN - 08/05/2024 7:36 PM EST Reason for call: Patient calling with concern for worsening symptoms since discharge from [facility] earlier today. Hospitalized for GRACIELA. Patient states is still on Macrobid for UTI prior to admission. Had clarke while in hospital. Now today with new onset severe body aches, temp of 100.4F, legs feel shaky and SOB that is worse on exertion. Outcome: Recommendation to go to the ED now, call 911 if needed. Patient verbalized understanding and agreeable to plan. Reason for Disposition MODERATE difficulty breathing (e.g., speaks in phrases, SOB even at rest, pulse 100-120) Protocols used: Infection on Antibiotic Follow-up [id number] [facility]11-27-2024 Miscellaneous Notes* Telephone Encounter - Yenifer Alberto RN - 08/05/2024 7:36 PM EST Reason for call: Patient calling with concern for worsening symptoms since discharge from [facility] earlier today. Hospitalized for GRACIELA. Patient states is still on Macrobid for UTI prior to admission. Had clarke while in hospital. Now today with new onset severe body aches, temp of 100.4F, legs feel shaky and SOB that is worse on exertion. Outcome: Recommendation to go to the ED now, call 911 if needed. Patient verbalized understanding and agreeable to plan. Reason for Disposition MODERATE difficulty breathing (e.g., speaks in phrases, SOB even at rest, pulse 100-120) Protocols used: Infection on Antibiotic Follow-up [id number] documented in this encounterUniversity Hospitals Beachwood [facility] Center11-27-2024 [facility]11-26-2024 Telephone encounter Note* Telephone Encounter - Ish Hurtado RN - 08/04/2024 12:26 PM EST Patient returned call and given message below. Patient asking provider office to mail order to her home via [employer]. Address verified in chart is correct. Mailed [employer] per request. [facility]11-26-2024 Miscellaneous Notes* Telephone Encounter - Ish Hurtado RN - 08/04/2024 12:26 PM EST Patient returned call and given message below. Patient asking provider office to mail order to her home via [employer]. Address verified in chart is correct. Mailed [employer] per request. * Telephone Encounter - Karla Parker LPN - 08/04/2024 11:21 AM EST Left message for patient to call office. Have an order for a bath/shower chair and needing to know where she would like the order faxed to or whether have it sent to her in the mail. Karla Parker LPN documented in this encounterUniversity Hospitals Beachwood [facility] Center11-26-2024 Telephone encounter Note * Telephone Encounter - Karla Parker LPN - 08/04/2024 11:21 AM EST Left message for patient to call office. Have an order for a bath/shower chair and needing to know where she would like the order faxed to or whether have it sent to her in the mail. Karla Parker LPN [facility]11-25-2024 Telephone encounter Note* Telephone Encounter - Karissa Collier RN - 08/03/2024 9:21 AM EST Patient notified. Karissa Collier RN [facility]11-25-2024 Miscellaneous Notes* Telephone Encounter - Karissa Collier RN - 08/03/2024 9:21 AM EST Patient notified. Karissa Collier RN * Telephone Encounter - Virginia Silveira LPN - 08/03/2024 7:51 AM EST Left message for patient to return call for results.Virginia Silveira LPN * Telephone Encounter - Mirtha Narvaez PA - 08/03/2024 7:11 AM EST Please contact patient and let her know her urine culture revealed no UTI. She needs to follow-up with primary care for persistent symptoms. If antibiotic is helping, she may continue this documented in this encounterUniversity Hospitals Beachwood [facility] Center11-25-2024 Telephone encounter Note * Telephone Encounter - Virginia Silveira LPN - 08/03/2024 7:51 AM EST Left message for patient to return call for results.Virginia Silveira LPN [facility]11-25-2024 Telephone encounter Note* Telephone Encounter - Mirtha Narvaez PA - 08/03/2024 7:11 AM EST Please contact patient and let her know her urine culture revealed no UTI. She needs to follow-up with primary care for persistent symptoms. If antibiotic is helping, she may continue this [facility] Work Phone: 1(998) 371-667511-24-2024 Evaluation note* Diagnosis Onset Date Resolution Status Admit Date GRACIELA (acute kidney injury) resolved August 02, 2024 11:09am Cervical myelopathy acute Decem 2023 3:32pm Hypertension chronic October 4:01pm Degenerative disc disease, lumbar acute November 16, 2024 3:32pm Degenerative spondylolisthesis nonea ctive November 16, 2024 3:32pm [facility] Work Phone: 1(836) 718-876911-23-2024 NoteK[facility]11-23-2024 History of Present illness Narrative* Felipe Jolly APRN.PARTS DEPARTMENT MANAGER - 08/01/2024 1:59 PM EST Subjective HPI Nontoxic-appearing female presents urgent care chief complaint possible UTI. Duration of symptoms 1day. Associated symptoms dysuria frequency urgency. History of UTIs this is similar. OTC medications none. Denies any fever vomiting new flank pain. No vaginal discharge or itching. Past medical history prescription medications allergies reviewed. .Patient presents with: Urinary Problem: pain with urination and frequency x last night PAST MEDICAL HISTORY Diagnosis Date Allergic rhinitis, cause unspecified 02/10/2007 Anxiety Arthritis Asthma 02/10/2007 Depression Psychiatrist managing (Dr. Bedolla) DM type 2 (diabetes mellitus, type 2) ([facility]) Essential hypertension 05/23/2006 Hemorrhage of gastrointestinal tract, unspecified 12/13/2011 Had bleeding hemorrhoids in 2012; normal colonoscopy Internal hemorrhoids without mention of complication 12/13/2011 Mixed hyperlipidemia 05/23/2006 Obesity (BMI 30.0-34.9) YARY (obstructive sleep apnea) Uses BiPAP occasionally Other nonspecific abnormal finding 05/23/2006 CK Elevation Snoring PAST SURGICAL HISTORY Procedure Laterality Date ADENOIDECTOMY PRIMARY <AGE 12 Adenoidectomy ANTERIOR COLPORRAPHY RPR CYSTOCELE W/CYSTO Cystocele repair APPENDECTOMY APPENDECTOMY HX ARTHRP KNE CONDYLE&PLATU MEDIAL&LAT COMPARTMENTS 07/10/2015 right BACK SURGERY HX COLONOSCOPY 02/22/2022 COLONOSCOPY FLX DX W/COLLJ SPEC WHEN PFRMD 12/13/2011 Colonoscopy repeat 10 years EGD W/O [facility] SPEC VARICIES INJ 02/22/2022 ESOPHAGOGASTRODUODENOSCOPY TRANSORAL DIAGNOSTIC 02/09/2016 EGD INCISE FINGER TENDON SHEATH Right 08/10/2021 Right ring trigger finger release JOINT REPLACEMENT HX LAPS ABD PRTM&OMENTUM DX W/WO SPEC BR/WA SPX Laparoscopy LAPS SURG CHOLECYSTECTOMY W/CHOLANGIOGRAPHY 10/07/2006 LIG/TRNSXJ FLP TUBE ABDL/VAG APPR UNI/BI Tubal ligation PAST SURGICAL HISTORY OF 06/22/2010 right knee arthroscopy- by Dr Dawson ([facility]) PAST SURGICAL HISTORY OF 04/27/2020 low back surgery at [facility];s/p L4 laminectomy, decompression of L4-5 canal stenosis with bilateral L4,L5 root foraminotomies TONSILLECTOMY PRIMARY/SECONDARY <AGE 12 Tonsillectomy VAGINAL HYSTERECTOMY UTERUS 250 GM/< Hysterectomy, vaginal for menorrhagia ALLERGIES Cephalosporins, Dilaudid [Hydromorphone (Bulk)], Doxycycline, Dust Mites, Omnicef [Cefdinir], Paxil [Paroxetine], Penicillins, Prednisone, Prozac [Fluoxetine Hcl], Pseudoephedrine, and Vicodin [Hydrocodone-Acetaminophen] MEDICATIONS glipiZIDE (GLUCOTROL) 5 mg tablet Take 1 tablet (5 mg) by mouth once daily. May take extra half to whole pill daily as needed for blood sugar over 200 ibuprofen (MOTRIN) 600 mg tablet Take 1 tablet by mouth two times a day as needed for pain. hydroCHLOROthiazide 25 mg tablet Take 1 tablet by mouth once daily. pantoprazole DR (PROTONIX) 20 mg tablet Take 1 tablet by mouth two times a day. Take on empty stomach, 1/2 hr before meal. As directed [START ON 08/11/2024] ALPRAZolam (XANAX) 0.5 mg tablet Take 1 tablet by mouth at bedtime as needed for up to 120 days. Patient should start on August 11, 2024. albuterol HFA (VENTOLIN HFA) 90 mcg/actuation inhaler Inhale 2 Puffs as instructed every 4 hours asneeded. fluticasone-vilanterol (BREO ELLIPTA) 200-25 mcg/dose inhaler Inhale 1 Inhalation as instructed once daily. gabapentin (NEURONTIN) 300 mg capsule Take 2 capsules by mouth two times a day for 180 days. fluticasone (FLONASE) 50 mcg/actuation nasal spray Use 2 Sprays in each nostril once daily as needed for cold/allergy symptoms. Rinse mouth after use. COVID-19 antigen test (COVID-19 AT-HOME TEST) kit Use as directed for signs and symptoms of COVID busPIRone (BUSPAR) 15 mg tablet Take 0.5 tablets by mouth two times a day. gemfibrozil (LOPID) 600 mg tablet Take 1 tablet by mouth two times a day. metFORMIN ER (GLUCOPHAGE XR) 500 mg 24 hr tablet Take 1 tablet by mouth two times a day before meals. sertraline (ZOLOFT) 100 mg tablet Take 2 tablets by mouth once daily. traZODone (DESYREL) 100 mg tablet Take 1 tablet by mouth daily at bedtime. albuterol (PROVENTIL) 2.5 mg /3 mL (0.083 %) nebulizer solution Use 3 mL via nebulizer every 4 hours as needed for wheezing/shortness of breath. ipratropium (ATROVENT) 0.02 % nebulizer solution Use 2.5 mL via nebulizer four times a day as needed. Unit dose pack of 50 carvedilol (COREG) 6.25 mg tablet Take 6.25 mg by mouth two times a day with meals. BIPAP Initiate BiPAP @ 20/14 cm of water with heated humidification. Ti Max 1.0, Ti Min 0.3, trigger medium, cycle high. Mask (medium AirFit F10 full face mask or per patient preference) optional chin strap (if indicated) , filters, tubing, humidifier and lifetime supplies. potassium chloride (K-TAB) 10 mEq tablet Take 1 tablet by mouth daily with breakfast. lisinopril (ZESTRIL) 20 mg tablet Take 1 tablet by mouth two times a day. blood sugar diagnostic (TRUE METRIX GLUCOSE TEST STRIP) test strip Test blood sugars twice a day DX: E11.65 Insulin: No Use as instructed Nebulizer and Compressor For Neb Use for albuterol and ipratropium nebulizer treatments every 4 hours as needed ursodiol (ACTIGALL) 300 mg capsule Take 300 mg by mouth two times a day. Vitamin E, dl, acetate, (VITAMIN E) 400 unit capsule Take 800 Units by mouth once daily. Lancets lancets Test blood sugar(s) 2 times daily. Dx: Type 2 DM - Uncontrolled E11.65 Insulin: No Blood-Glucose Meter monitoring kit Insurance covered or per patient choice. Test blood sugar twice daily plus as needed for symptoms of blood sugars being too high or low. Dx: Type 2 DM - Uncontrolled E11.65 Insulin:No Nebulizer NEBULIZER FOR HOME USE. DX: J45.42 Alpha Lipoic Acid 600 mg cap Take 600 mg by mouth once daily. nicotine (NICODERM) 14 mg/24 hr Apply 1 Patch as directed every 24 hours. No smoking with patch. (Patient not taking: Reported on 08/01/2024) xnszye-znfnqnus-qmroemu (CREON 24) 24,000-76,000 -120,000 unit delayed release capsule Take 1 capsule by mouth with meals. With snacks and meals (Patient not taking: Reported on 08/01/2024) FAMILY HISTORY Problem Relation Age of Onset Hypertension Mother history of glaucoma Cervical Cancer Mother Asthma Mother Heart Father CO x 2 Cancer Father Lung, metastatic to bone, age 77 other (aortic aneurysm) Father 50 Colon Polyps Sister Thyroid Sister Hypothyroidism Thyroid Sister Cancer Sister Lung, LLL. Resected. No Known Problems Daughter No Known Problems Son Social History Tobacco Use Smoking status: Every Day Current packs/day: 1.50 Average packs/day: 1.5 packs/day for 36.0 years (54.0 ttl pk-yrs) Types: Cigarettes Smokeless tobacco: Never Tobacco comments: Working on smoking cessation. Trying every day to quit and down to 8-9 cigarettes daily and quit smoking in the house Vaping Use Vaping status: Never Used Substance Use Topics Alcohol use: No Drug use: No BP 122/68 Pulse 102 Temp 36.6 C (97.9 F) Resp 18 Wt 88 kg (194 lb 0.1 oz) SpO2 97% BMI 31.31 kg/m Hr 90 Review of Systems Constitutional: Negative for chills, fever and malaise/fatigue. Cardiovascular: Negative for chest pain. Gastrointestinal: Negative for abdominal pain, constipation, diarrhea, nausea and vomiting. Genitourinary: Positive for dysuria, frequency and urgency. Negative for flank pain and hematuria. Musculoskeletal: Negative for myalgias. Objective Physical Exam Vitals and nursing note reviewed. Constitutional: General: She is not in acute distress. Appearance: She is not diaphoretic. HENT: Head: Jaw: No trismus. Right Ear: Hearing normal. No decreased hearing noted. No drainage, swelling or tenderness. Tympanic membrane is not perforated, erythematous or bulging. Left Ear: Hearing normal. No decreased hearing noted. No drainage, swelling or tenderness. Tympanicmembrane is not perforated, erythematous or bulging. Mouth/Throat: Pharynx: Uvula midline. No uvula swelling. Tonsils: No tonsillar abscesses. Cardiovascular: Rate and Rhythm: Normal rate and regular rhythm. Pulses: Normal pulses. Pulmonary: Effort: Pulmonary effort is normal. No respiratory distress. Breath sounds: Normal breath sounds. Chest: Chest wall: No tenderness. Abdominal: General: Bowel sounds are normal. There is no distension. Palpations: Abdomen is soft. Abdomen is not rigid. Tenderness: There is abdominal tenderness in the suprapubic area. There is no right CVA tenderness,left CVA tenderness, guarding or rebound. Negative signs include Liang's sign and McBurney's sign. Comments: Mild Musculoskeletal: General: No tenderness. Lymphadenopathy: Head: Right side of head: No submental, submandibular, tonsillar, preauricular, posterior auricular or occipital adenopathy. Left side of head: No submental, submandibular, tonsillar, preauricular, posterior auricular or occipital adenopathy. Cervical: Right cervical: No superficial or posterior cervical adenopathy. Left cervical: No superficial or posterior cervical adenopathy. Skin: General: Skin is warm and dry. Findings: No rash. Neurological: Mental Status: She is alert and oriented to person, place, and time. ASSESSMENT/PLAN: 1. Pain with urination - ICD9: 788.1, ICD10: R30.9 - UA DIP, URINE (POC) - URINE CULTURE Diagnosed with dysuria. Urine dip negative. Placed on Macrobid. May discontinue if urine culture isnegative. Patient was educated on supportive therapies. Patient will follow up with primary care provider as needed. Patient was instructed to immediately proceed to emergency room for any new, worsening, or symptoms lasting longer than anticipated. The patient's clinical presentation is otherwise unremarkable at this time. Based on exam and clinical finding, the patient is stable for discharge. Plan of care was discussed with patient. Patient verbalizes understanding and agrees to plan of care. This note was generated using [employer] software. It may contain errors in wording, punctuation, or spelling. Felipe Jolly APRN.HEIDY documented in this encounterUniversity Hospitals Beachwood [facility] Center11-22-2024 Telephone encounter Note * Telephone Encounter - Joseph Corrigan LPN - 07/31/2024 3:46 PM EST New orders faxed, confirmation received Joseph Corrigan LPN July 31, 2024 3:46 PM [facility]11-22-2024 Miscellaneous Notes* Telephone Encounter - Joseph Corrigan LPN - 07/31/2024 3:46 PM EST New orders faxed, confirmation received Joseph Corrigan LPN July 31, 2024 3:46 PM * Telephone Encounter - Indigo Nichols PA-C - 07/31/2024 2:31 PM EST New orders placed for general upper and general lower extremity on the right. * Telephone Encounter - Joseph Corrigan LPN - 07/31/2024 11:15 AM EST Images from the original note were not included. Yes new order needs to be placed to specify extremities. Indigo Nichols PA-C Neuro Que[facility]3 hours ago (8:09 AM) MQ Both arm and leg, does another order need to be placed? Indigo Nichols PA-C * Telephone Encounter - Sriram Cabrales RN - 07/29/2024 2:40 PM EST Bridgett Cerda @ [facility] calling with request for new EMG order specifying extremity (right arm or leg)? Sriram Cabrales RN documented in this encounterUniversity Hospitals Beachwood [facility] Center11-22-2024 Telephone encounter Note * Telephone Encounter - Indigo Nichols PA-C - 07/31/2024 2:31 PM EST New orders placed for general upper and general lower extremity on the right. [facility]11-22-2024 Telephone encounter Note* Telephone Encounter - Joseph Corrigan LPN - 07/31/2024 11:15 AM EST Images from the original note were not included. Yes new order needs to be placed to specify extremities. Indigo Nichols PA-C Neuro [place]dal[place]3 hours ago (8:09 AM) MQ Both arm and leg, does another order need to be placed? Indigo Nichols PA-C [facility]11-22-2024 NoteKettering [facility]11-22-2024 History of Present illness Narrative* Kati Grant LSW - 07/31/2024 8:47 AM EST Value Based Social Work Progress Note Provider Action / FYI PCP Action none Date of Service: 07/31/2024 Patient identified by name/: Yes- via Telephone Referral Source: Referral Patient Outreach: Follow Up to ensure patient had call from [facility] to schedule her Passportassessment. Mode of Outreach: Phone Call Response Time: Unable to reach (1st Attempt) Left message by: Voicemail BOLIVAR Doan July 31, 2024 8:56 AM documented in this encounterUniversity Hospitals Beachwood [facility] Center11-20-2024 Instructions* Patient Instructions* Willam Estrada MD - 07/29/2024 5:56 PM EST - Refill your Glipizide prescription at [facility]. - Refill your Motrin prescription; continue taking 600 mg once daily as needed for pain. - Switch to Hydrochlorothiazide 25 mg once daily; refill prescription at [facility]. - Refill your Pantoprazole prescription; continue taking 20 mg twice daily for acid reflux and heartburn. You may reduce to once daily if symptoms are controlled. - Increase your intake of omega-3 fatty acids by eating fish twice a week to help lower triglycerides and improve good cholesterol levels. - Drink 6-8 cups of non-caffeinated fluids daily to maintain hydration and help manage blood pressure. - Use gentle stretching exercises to help alleviate muscle spasms and improve flexibility. - Consider using a shower chair to improve safety and balance while bathing. - Follow up with your neurologist for further evaluation and management of neuropathy. - Next follow-up appointment in 4 months. documented in this encounterUniversity Hospitals Beachwood Medical Center11-20-2024 NoteKettering [facility] Behavioral [facility] Center11-20-2024 History of Present illness Narrative* Willam Estrada MD - 07/29/2024 5:29 PM EST This note was created using [employer]. Subjective Garland De Santiago is a 64 year old female. Patient presents with: Follow Up SUBJECTIVE: Garland De Santiago is a 64 year old year old lady here today for 4 month follow up appointment for review of medical conditions. Garland De Santiago is a 64-year-old female with a history of neuropathy, back pain, and arthritis, presenting for a 4-month follow-up and medication refills. Garland reports significant pain and fatigue, stating, I don't know what's going on with my body. Why does it hurt so bad? And why am I so fatigued? She describes the pain as originating from thetop of her legs downwards, with stabbing pains in her lower back and other areas. She also experiences muscle spasms and tightness in her back, particularly on the right side. She has a history of lumbar stenosis and has undergone a laminectomy. She is currently under the care of a neurology PA, who is investigating the possibility of neuropathy progressing up her legs. She is scheduled for an MRI on August 09. Garland also reports balance issues, stating, I have very bad balance. When I'm in the shower, I'm like this. She does not currently use a shower chair but acknowledges the need for one. She has been experiencing neck pain on the right side for an extended period and is seeing an orthopedics PAon July 10, who suspects that her balance issues may be related to her neck pain. Garland reports waking up once or twice during the night to urinate but is able to return to sleep without much difficulty. She also reports feeling woozy and notes that her blood pressure has been lower than usual, measuring 109/70 today, compared to her usual readings of high 120s/90s at homeover the past two days. She has been eating and drinking normally, consuming two pieces of toast, cashews, and a hot dog today. Garland is currently taking multiple medications, including glipizide, Motrin, hydrochlorothiazide, pantoprazole, potassium, and alprazolam. She reports taking glipizide twice a day and is running low on Motrin, which she takes once a day. She is currently taking 50 mg hydrochlorothiazide but splits the pills in half to take 25 mg daily. She takes pantoprazole 20 mg twice a day and is willing to reduce the dosage to once a day if her symptoms are controlled. She also takes potassium and alprazolam, with the latter needing a refill by the end of the month. Recent lab results show a potassium level of 3.5, which is slightly below normal. Her hemoglobin A1c has improved to 7.1, but her triglycerides are still high. She reports eating fish and has cut outwhite bread, consuming only whole wheat bread. She denies eating flaxseed, walnuts, or edamame. Shehas not been exercising but reports weight loss and a BMI approaching 30. PAST MEDICAL HISTORY Diagnosis Date Allergic rhinitis, cause unspecified 02/10/2007 Anxiety Arthritis Asthma 02/10/2007 Depression Psychiatrist managing (Dr. Bedolla) DM type 2 (diabetes mellitus, type 2) ([facility]) Essential hypertension 05/23/2006 Hemorrhage of gastrointestinal tract, unspecified 12/13/2011 Had bleeding hemorrhoids in 2011; normal colonoscopy Internal hemorrhoids without mention of complication 12/13/2011 Mixed hyperlipidemia 05/23/2006 Obesity (BMI 30.0-34.9) YARY (obstructive sleep apnea) Uses BiPAP occasionally Other nonspecific abnormal finding 05/23/2006 CK Elevation Snoring Current Outpatient Medications Medication Sig albuterol HFA (VENTOLIN HFA) 90 mcg/actuation inhaler Inhale 2 Puffs as instructed every 4 hours asneeded. fluticasone-vilanterol (BREO ELLIPTA) 200-25 mcg/dose inhaler Inhale 1 Inhalation as instructed once daily. gabapentin (NEURONTIN) 300 mg capsule Take 2 capsules by mouth two times a day for 180 days. fluticasone (FLONASE) 50 mcg/actuation nasal spray Use 2 Sprays in each nostril once daily as needed for cold/allergy symptoms. Rinse mouth after use. COVID-19 antigen test (COVID-19 AT-HOME TEST) kit Use as directed for signs and symptoms of COVID busPIRone (BUSPAR) 15 mg tablet Take 0.5 tablets by mouth two times a day. gemfibrozil (LOPID) 600 mg tablet Take 1 tablet by mouth two times a day. metFORMIN ER (GLUCOPHAGE XR) 500 mg 24 hr tablet Take 1 tablet by mouth two times a day before meals. sertraline (ZOLOFT) 100 mg tablet Take 2 tablets by mouth once daily. traZODone (DESYREL) 100 mg tablet Take 1 tablet by mouth daily at bedtime. ALPRAZolam (XANAX) 0.5 mg tablet Take 1 tablet by mouth at bedtime as needed for up to 120 days. Donot start before April 10, 2024. nicotine (NICODERM) 14 mg/24 hr Apply 1 Patch as directed every 24 hours. No smoking with patch. albuterol (PROVENTIL) 2.5 mg /3 mL (0.083 %) nebulizer solution Use 3 mL via nebulizer every 4 hours as needed for wheezing/shortness of breath. ipratropium (ATROVENT) 0.02 % nebulizer solution Use 2.5 mL via nebulizer four times a day as needed. Unit dose pack of 50 phenazopyridine (PYRIDIUM) 200 mg tablet Take 1 tablet by mouth three times a day as needed. hydroCHLOROthiazide 50 mg tablet Take 25 mg by mouth once daily. carvedilol (COREG) 6.25 mg tablet Take 6.25 mg by mouth two times a day with meals. BIPAP Initiate BiPAP @ 20/14 cm of water with heated humidification. Ti Max 1.0, Ti Min 0.3, trigger medium, cycle high. Mask (medium AirFit F10 full face mask or per patient preference) optional chin strap (if indicated) , filters, tubing, humidifier and lifetime supplies. pantoprazole DR (PROTONIX) 20 mg tablet Take 1 tablet by mouth two times a day. Take on empty stomach, 1/2 hr before meal. potassium chloride (K-TAB) 10 mEq tablet Take 1 tablet by mouth daily with breakfast. glipiZIDE (GLUCOTROL) 5 mg tablet Take 1 tablet (5 mg) by mouth once daily. May take extra half to whole pill daily as needed for blood sugar over 200 gvdwiy-basibhij-hewrnaz (CREON 24) 24,000-76,000 -120,000 unit delayed release capsule Take 1 capsule by mouth with meals. With snacks and meals pantoprazole DR (PROTONIX) 40 mg tablet Take 40 mg by mouth two times a day. lisinopril (ZESTRIL) 20 mg tablet Take 1 tablet by mouth two times a day. blood sugar diagnostic (TRUE METRIX GLUCOSE TEST STRIP) test strip Test blood sugars twice a day DX: E11.65 Insulin: No Use as instructed Nebulizer and Compressor For Neb Use for albuterol and ipratropium nebulizer treatments every 4 hours as needed ibuprofen (MOTRIN) 600 mg tablet Take 1 tablet by mouth every 12 hours. ursodiol (ACTIGALL) 300 mg capsule Take 300 mg by mouth two times a day. Vitamin E, dl, acetate, (VITAMIN E) 400 unit capsule Take 800 Units by mouth once daily. Lancets lancets Test blood sugar(s) 2 times daily. Dx: Type 2 DM - Uncontrolled E11. Insulin: No Blood-Glucose Meter monitoring kit Insurance covered or per patient choice. Test blood sugar twice daily plus as needed for symptoms of blood sugars being too high or low. Dx: Type 2 DM - Uncontrolled E11.65 Insulin:No Nebulizer NEBULIZER FOR HOME USE. DX: J45.42 No current facility-administered medications for this visit. Review of Systems Objective BP 108/74 Pulse 97 Resp 16 Wt 87 kg (191 lb 12.8 oz) BMI 30.96 kg/m Last 5 Encounter Wt Readings: Date: Wt: 07/29/2024 86.6 kg (191 lb) 07/29/2024 87 kg (191 lb 12.8 oz) 05/19/2024 88.4 kg (194 lb 14.2 oz) 04/20/2024 88.5 kg (195 lb 1.7 oz) 03/30/2024 87.2 kg (192 lb 4.8 oz) No waist measurement recorded Estimated body mass index is 30.96 kg/m as calculated from the following: Height as of 11/19/23: 167.6 cm (5' 6). Weight as of this encounter: 87 kg (191 lb 12.8 oz). Last 5 Encounter BP Readings: Date: BP: 07/29/2024 109/74 07/29/2024 108/74 05/19/2024 110/70[using machine[ 05/07/2024 118/78 04/20/2024 100/70 Physical Exam Constitutional: Appearance: Normal appearance. HENT: Head: Normocephalic. Eyes: Conjunctiva/sclera: Conjunctivae normal. Cardiovascular: Rate and Rhythm: Normal rate and regular rhythm. Heart sounds: Normal heart sounds. Pulmonary: Effort: Pulmonary effort is normal. Breath sounds: Normal breath sounds. Musculoskeletal: Lumbar back: Spasms and tenderness present. Right lower leg: No edema. Left lower leg: No edema. Comments: Straightening of lumbar spine Skin: General: Skin is warm and dry. Neurological: General: No focal deficit present. Mental Status: She is alert and oriented to person, place, and time. Psychiatric: Mood and Affect: Mood normal. Behavior: Behavior normal. Thought Content: Thought content normal. Judgment: Judgment normal. Latest Ref Rng 11/16/2023 12/06/2023 06/22/2024 Protein, Total 6.3 - 8.0 g/dL 6.9 7.3 7.4 Albumin 3.9 - 4.9 g/dL 4.2 4.3 4.4 Calcium 8.5 - 10.2 mg/dL 9.2 9.2 9.6 Bilirubin, Total 0.2 - 1.3 mg/dL 0.2 0.3 0.2 Alkaline Phosphatase 34 - 123 U/L 118 125 (H) 63 AST 13 - 35 U/L 32 27 20 ALT 7 - 38 U/L 16 16 14 Glucose 74 - 99 mg/dL 221 (H) 129 (H) 158 (H) BUN 7 - 21 mg/dL 12 9 14 Creatinine 0.58 - 0.96 mg/dL 0.45 (L) 0.46 (L) 0.52 (L) Sodium 136 - 144 mmol/L 138 142 139 Potassium 3.7 - 5.1 mmol/L 4.1 4.1 3.5 (L) Chloride 98 - 107 mmol/L 100 102 100 CO2 22 - 30 mmol/L 25 27 26 Anion Gap 8 - 15 mmol/L 13 13 13 eGFR >=60 mL/min/1.73m 108 108 104 WBC 3.70 - 11.00 k/uL 8.08 9.21 8.99 RBC 3.90 - 5.20 m/uL 5.13 5.28 (H) 5.04 Hemoglobin 11.5 - 15.5 g/dL 14.6 14.8 14.6 Hematocrit 36.0 - 46.0 % 43.2 43.9 44.0 MCV 80.0 - 100.0 fL 84.2 83.1 87.3 MCH 26.0 - 34.0 pg 28.5 28.0 29.0 MCHC 30.5 - 36.0 g/dL 33.8 33.7 33.2 RDW-CV 11.5 - 15.0 % 12.7 12.7 14.6 Platelet Count 150 - 400 k/uL 280 319 325 MPV 9.0 - 12.7 fL 10.1 10.2 10.5 Absolute nRBC <0.01 k/uL <0.01 <0.01 <0.01 Cholesterol, Total <200 mg/dL 129 136 Triglyceride <150 mg/dL 336 (H) 407 (H) HDL Cholesterol >39 mg/dL 24 (L) 22 (L) Non HDL Cholesterol <130 mg/dL 105 114 Fasting Time hrs 12 10 VLDL Cholesterol <30 mg/dL 67 (H) -- VLDL Cholesterol 60 (H) TC:HDL Ratio <5.10 5.38 (H) 6.18 (H) LDL Cholesterol 38 -- LDL:HDL Ratio 1.58 -- Transglutaminase IgA Abs <4 U/mL <2 Transglutaminase IgA Abs Interpretation Negative Negative Interpretation (Celiac Screen) No serological evidence of celiac disease, however, if celiac disease is clinically suspected and patient is not on gluten- free diet, histological diagnosis may be considered. HLA testing may help with risk assessment. Gliadin Ab, IgA <20 Units 5 Gliad Deamidated IgA Qual Negative, Test not Indicated Negative Creatinine, Ur Random (UCRR) 20.0 - 300.0 mg/dL 98.9 Albumin, Urine Random mg/L <12.0 Albumin/Creat Ratio <30 mg/g <12 Hemoglobin A1C 4.3 - 5.6 % 9.2 (H) 8.9 (H) 7.1 (H) Estimated Average Glucose mg/dL 217 209 157 LDL Cholesterol, Direct <100 mg/dL 54 CK 42 - 196 U/L 260 (H) TSH 0.270 - 4.200 mIU/L 0.899 Free T4 0.9 - 1.7 ng/dL 0.9 Free T3 2.3 - 4.1 pg/mL 2.9 Cortisol 4.8 - 19.5 ug/dL 10.4 CRP <0.9 mg/dL 0.5 WSR 0 - 20 mm/hr 17 IgA 70 - 400 mg/dL 253 Magnesium 1.7 - 2.3 mg/dL 1.8 Legend: (H) High (L) Low Assessment and Plan # Type 2 diabetes mellitus with diabetic neuropathy, without long-term current use of insulin (HCC)(E11.40) # Neuropathy (G62.9) - Hemoglobin A1c improved to 7.1%. - Glipizide refilled; continue current dosing. - Neuropathy symptoms being evaluated by neurology; pending further tests. # Neck pain, musculoskeletal (M54.2) - MRI scheduled for August 09 to assess chronic neck pain. # Mixed hyperlipidemia (E78.2) - LDL cholesterol at 54 mg/dL, triglycerides elevated. - Recommended increasing dietary intake of omega-3 fatty acids through fish consumption. - Discussed potential benefits of fish oil supplements. # Essential hypertension (I10) - Blood pressure readings at home reportedly in the high 120s/90s. - Hydrochlorothiazide prescription adjusted to 25 mg daily to avoid splitting tablets. - Advised to maintain adequate hydration to prevent hypotension. # Class 1 obesity due to excess calories with body mass index (BMI) of 30.0 to 30.9 in adult, unspecified whether serious comorbidity present (E66.811) - Weight reduction noted; BMI approaching below 30. - Encouraged continuation of current dietary modifications. # Primary osteoarthritis of both knees (M17.0) # Primary osteoarthritis of both hips (M16.0) - Documented for insurance coverage of a shower chair to assist with balance and reduce fall risk. # Balance disorder (R26.89) - Referral to orthopedics PA for further evaluation; appointment scheduled for July 10. 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 - Recommended revisiting previous physical therapy exercises to alleviate muscle tension. # Chronic fatigue (R53.82) - Discussed potential contributions from chronic pain and poor sleep quality. - Advised on maintaining adequate hydration and nutrition to support energy levels. # Anxiety and depression (F41.9) - Alprazolam prescription refilled; continue current dosing. Stable with control of anxiety. At this time benefits outweigh risks. Continue to monitor for adverse effects and indications for decreasing dose or tapering off. No signs of diversion or abuse of medication(s); no adverse effects. Continue present management. Willam Estrada MD [facility] encounter[facility] Telephone encounter Note * Telephone Encounter - Sriram Cabrales RN - 07/29/2024 2:40 PM EST Bridgett Cerda @ [facility] calling with request for new EMG order specifying extremity (right arm or leg)? Sriram Cabrales RN [facility]11-20-2024 Instructions* Patient Instructions* Indigo Nichols PA-C - 07/29/2024 1:58 PM EST Laboratory studies EMG of the arm and leg to look for progressing neuropathy Stay on gabapentin 600mg twice daily Alpha lipoic acid 600mg daily (this can help with symptoms and help Follow up in 3-4 months documented in this encounterUniversity [facility]11-[facility]24 Nurse Note* Joseph Corrigan LPN - 07/29/2024 1:32 PM EST C/o EDWARDO feet neuropathy for years, taking gabapentin-worked at first but not working, feels like jabs, cuts at the bottom, shooting pain in her toes. Joseph Corrigan LPN July 29, 2024 1:36 PM [facility]11-20-[facility] Nurse Note* Joseph Corrigan LPN - 07/29/2024 1:32 PM EST C/o EDWARDO feet neuropathy for years, taking gabapentin-worked at first but not working, feels like jabs, cuts at the bottom, shooting pain in her toes. Joseph Corrigan LPN July 29, 2024 1:36 PM documented in this encounterUniversity [facility]11-20-2024 [facility] History of Present illness Narrative* Indigo Nichols PA-C - 07/29/2024 1:29 PM EST Images from the original note were not included. [facility] Name: Garland De Santiago Age: [age] year old Gender: female Primary Care Provider: Willam Estrada MD Consult requested for paresthesias by Willam Estrada. Recommendations will be communicated via shared medical record or US mail. Chief Complaint:New Patient (DM2, neuropathy) 07/29/2024 - General Neurology, Indigo Nichols PA-C ASSESSMENT ASSESSMENT/PLAN: 1. Neuropathy - ICD9: 355.9, ICD10: G62.9 (primary diagnosis) 2. Other fatigue - ICD9: 780.79, ICD10: R53.83 Patient with worsening paresthesias in the feet as well as new paresthesias in the hands starting over the last 7 to 8 weeks. Has history of diabetic neuropathy in the feet, last A1c was 7.1. Unsure of any etiology for worsening symptoms, but states that it feels like she is walking on glass and also has chronic uofx-kfr-pvhcbwn feeling in her feet. Similar symptoms in her hands, the hands were very similar to how her feet started. Symptoms are equal bilaterally, no falls but does report some subjective weakness in the hands and feet. No weakness appreciated on exam but she does have stockingglove distribution of neuropathy consistent with polyneuropathy. Will obtain laboratory studies to look for other causes of worsening neuropathy but discussed it could be related chronically elevatedsugar levels. Will obtain TSH, B12, SPEP. Additionally, discussed a repeat EMG and patient is amenable to this. She is currently on gabapentin 600 mg twice daily and does not want adjust this at thistime. Discussed alpha lipoic acid in addition to this and patient is amenable to starting. Discussed conservative therapy as well, patient denying any active lightheadedness or presyncope, but encouraged increased water intake. Patient agreeable to treatment plan of care at this time, questions were answered. Patient to follow-up in 3 months. Indigo Nichols PA-C Encounter Diagnosis ICD-10-CM 1. Neuropathy G62.9 METHYLMALONIC ACID PROT ELECT SERUM WITH ODELL AND INTERP THYROID STIMULATING HORMONE VITAMIN B12 EMG(NEURO/NI) 2. Other fatigue R53.83 THYROID STIMULATING HORMONE Return in about 3 months (around 10/29/2024). Chart, labs,and relevant images reviewed. HPI: Telephone encounter on 07/07/24 Pt has neuropathy in both feet, she reports pain usually comes & goes but has been horrible the last 3 wks. Pt rates pain 5-9.5 on pain scale & is constant, wakes her from sleep every couple hrs. Pt is taking gabapentin 300mg 2 caps 2 times daily & says it does not provide any relief. Pt isasking if she should see a neurologist or what is recommended? Sent to neuro and pain management. Hx of lumbar surgery. This is a 64 year old female presenting with worsening paresthesias of the hands and feet. Notes that she was diagnosed with neuropathy in the feet many years ago, but over the last 7 to 8 weeks she started noticing worsening pain in the feet, the bottoms of the feet as well as sharp stabbing painsin the toes. Equal bilaterally, constant and worsened the more she ambulates on the feet. Gets constant numbness and tingling, ohkq-amj-ngpopnt as well. But when she ambulates, it feels like she is walking on glass and getting her feet cut. Notes that in the last few weeks she started getting symptoms in her hands which is new for her, more intermittent but described more as a enwv-qap-itjveam feeling throughout the hands bilaterally. Reports maybe some mild weakness in the feet as well as the hands, but no dropping things, no falling. Occasionally will trip due to the lack of sensation in her feet. No significant lightheadedness or dizziness. While the time her symptoms worsen she was diagnosed with a bladder infection and was started on Macrobid, but otherwise no other changes. No bowel or bladder incontinence, no saddle anesthesia. Doesreport some unsteadiness specifically when she is in the shower closes her eyes. Is following with spine due to possible cervical stenosis as well. Does not drink much water throughout the day, primarily drinks diet soda. Is currently on gabapentin 600 mg twice daily. Numbness in feet: yes, Numbness in hands: yes, intermittently Burning pain in feet: yes, constantly Burning pain in hands: no Abnormal temperature sensation in limbs:no Falls: no Balance issues: yes, Worse at night?: yes, Neuropathy risk factors: Diabetes Review of Systems ACTIVE PROBLEM LIST Essential Hypertension Elevated Ck Asthma Pure Hyperglyceridemia Rhinitis Obesity (Bmi 30.0-34.9) Type 2 Diabetes Mellitus With Diabetic Neuropathy, Without Long-Term Current Use of Insulin ([facility]) Recurrent Major Depressive Disorder, in Remission ([facility]) Yary (Obstructive Sleep Apnea) Anxiety Lumbar Spinal Stenosis Nicotine use disorder, F17.2 S/P Lumbar Laminectomy Chronic Midline Low Back Pain Gait Instability Severe Persistent Asthma Headache, Unspecified Headache Type Congestion of Respiratory Tract PAST MEDICAL HISTORY Diagnosis Date Allergic rhinitis, cause unspecified 02/10/2007 Anxiety Arthritis Asthma 02/10/2007 Depression Psychiatrist managing (Dr. Bedolla) DM type 2 (diabetes mellitus, type 2) ([facility]) Essential hypertension 05/23/2006 Hemorrhage of gastrointestinal tract, unspecified 12/13/2011 Had bleeding hemorrhoids in 2011; normal colonoscopy Internal hemorrhoids without mention of complication 12/13/2011 Mixed hyperlipidemia 05/23/2006 Obesity (BMI 30.0-34.9) YARY (obstructive sleep apnea) Uses BiPAP occasionally Other nonspecific abnormal finding 05/23/2006 CK Elevation Snoring Medications: Reviewed albuterol HFA (VENTOLIN HFA) 90 mcg/actuation inhaler Inhale 2 Puffs as instructed every 4 hours asneeded. fluticasone-vilanterol (BREO ELLIPTA) 200-25 mcg/dose inhaler Inhale 1 Inhalation as instructed once daily. gabapentin (NEURONTIN) 300 mg capsule Take 2 capsules by mouth two times a day for 180 days. fluticasone (FLONASE) 50 mcg/actuation nasal spray Use 2 Sprays in each nostril once daily as needed for cold/allergy symptoms. Rinse mouth after use. COVID-19 antigen test (COVID-19 AT-HOME TEST) kit Use as directed for signs and symptoms of COVID busPIRone (BUSPAR) 15 mg tablet Take 0.5 tablets by mouth two times a day. gemfibrozil (LOPID) 600 mg tablet Take 1 tablet by mouth two times a day. metFORMIN ER (GLUCOPHAGE XR) 500 mg 24 hr tablet Take 1 tablet by mouth two times a day before meals. sertraline (ZOLOFT) 100 mg tablet Take 2 tablets by mouth once daily. traZODone (DESYREL) 100 mg tablet Take 1 tablet by mouth daily at bedtime. ALPRAZolam (XANAX) 0.5 mg tablet Take 1 tablet by mouth at bedtime as needed for up to 120 days. Donot start before April 10, 2024. albuterol (PROVENTIL) 2.5 mg /3 mL (0.083 %) nebulizer solution Use 3 mL via nebulizer every 4 hours as needed for wheezing/shortness of breath. ipratropium (ATROVENT) 0.02 % nebulizer solution Use 2.5 mL via nebulizer four times a day as needed. Unit dose pack of 50 hydroCHLOROthiazide 50 mg tablet Take 25 mg by mouth once daily. carvedilol (COREG) 6.25 mg tablet Take 6.25 mg by mouth two times a day with meals. BIPAP Initiate BiPAP @ 20/14 cm of water with heated humidification. Ti Max 1.0, Ti Min 0.3, trigger medium, cycle high. Mask (medium AirFit F10 full face mask or per patient preference) optional chin strap (if indicated) , filters, tubing, humidifier and lifetime supplies. pantoprazole DR (PROTONIX) 20 mg tablet Take 1 tablet by mouth two times a day. Take on empty stomach, 1/2 hr before meal. potassium chloride (K-TAB) 10 mEq tablet Take 1 tablet by mouth daily with breakfast. glipiZIDE (GLUCOTROL) 5 mg tablet Take 1 tablet (5 mg) by mouth once daily. May take extra half to whole pill daily as needed for blood sugar over 200 fwmwla-sffljcwl-qqmfspr (CREON 24) 24,000-76,000 -120,000 unit delayed release capsule Take 1 capsule by mouth with meals. With snacks and meals lisinopril (ZESTRIL) 20 mg tablet Take 1 tablet by mouth two times a day. blood sugar diagnostic (TRUE METRIX GLUCOSE TEST STRIP) test strip Test blood sugars twice a day DX: E11.65 Insulin: No Use as instructed Nebulizer and Compressor For Neb Use for albuterol and ipratropium nebulizer treatments every 4 hours as needed ibuprofen (MOTRIN) 600 mg tablet Take 1 tablet by mouth every 12 hours. Lancets lancets Test blood sugar(s) 2 times daily. Dx: Type 2 DM - Uncontrolled E11.65 Insulin: No Blood-Glucose Meter monitoring kit Insurance covered or per patient choice. Test blood sugar twice daily plus as needed for symptoms of blood sugars being too high or low. Dx: Type 2 DM - Uncontrolled E11.65 Insulin:No Nebulizer NEBULIZER FOR HOME USE. DX: J45.42 nicotine (NICODERM) 14 mg/24 hr Apply 1 Patch as directed every 24 hours. No smoking with patch. phenazopyridine (PYRIDIUM) 200 mg tablet Take 1 tablet by mouth three times a day as needed. (Patient not taking: Reported on 05/19/2024) pantoprazole DR (PROTONIX) 40 mg tablet Take 40 mg by mouth two times a day. (Patient not taking: Reported on 03/30/2024) ursodiol (ACTIGALL) 300 mg capsule Take 300 mg by mouth twice daily. (Patient not taking: Reported on 04/20/2024) Vitamin E, dl, acetate, (VITAMIN E) 400 unit capsule Take 800 Units by mouth once daily. (Patient not taking: Reported on 04/20/2024) ALLERGIES Allergen Reactions Cephalosporins Rash Dilaudid [Hydromorp* Mental Status Change Doxycycline GI Upset Sharp pains in stomach Dust Mites Omnicef [Cefdinir] Hives Paxil [Paroxetine] Intolerance excessive sweating Penicillins Hives, Other: See Comments Any medication with penicillin in it. Had been given amoxicillin in 2011 and had reaction Given test dose of 2cc's on 08/17/2019 causing sever flushing along with hypotension Prednisone Intolerance Elevated BS, ER Prozac [Fluoxetine * Mental Status Change, Diarrhea Pseudoephedrine Intolerance Heart racing Vicodin [Hydrocodon* GI Upset FAMILY HISTORY Problem Relation Age of Onset Hypertension Mother history of glaucoma Cervical Cancer Mother Asthma Mother Heart Father [place] x 2 Cancer Father Lung, metastatic to bone, age 77 other (aortic aneurysm) Father 50 Colon Polyps Sister Thyroid Sister Hypothyroidism Thyroid Sister Cancer Sister Lung, LLL. Resected. No Known Problems Daughter No Known Problems Son PAST SURGICAL HISTORY Procedure Laterality Date ADENOIDECTOMY PRIMARY <AGE 12 Adenoidectomy ANTERIOR COLPORRAPHY RPR CYSTOCELE W/CYSTO Cystocele repair APPENDECTOMY APPENDECTOMY HX ARTHRP KNE CONDYLE&PLATU MEDIAL&LAT COMPARTMENTS 07/10/2015 right BACK SURGERY HX COLONOSCOPY 02/22/2022 COLONOSCOPY FLX DX W/COLLJ SPEC WHEN PFRMD 12/13/2011 Colonoscopy repeat 10 years EGD W/O [facility] SPEC VARICIES INJ 02/22/2022 ESOPHAGOGASTRODUODENOSCOPY TRANSORAL DIAGNOSTIC 02/09/2016 EGD INCISE FINGER TENDON SHEATH Right 08/10/2021 Right ring trigger finger release JOINT REPLACEMENT HX LAPS ABD PRTM&OMENTUM DX W/WO SPEC BR/WA SPX Laparoscopy LAPS SURG CHOLECYSTECTOMY W/CHOLANGIOGRAPHY 10/07/2006 LIG/TRNSXJ FLP TUBE ABDL/VAG APPR UNI/BI Tubal ligation PAST SURGICAL HISTORY OF 06/22/2010 right knee arthroscopy- by Dr Dawson ([facility]) PAST SURGICAL HISTORY OF 04/27/2020 low back surgery at [facility];s/p L4 laminectomy, decompression of L4-5 canal stenosis with bilateral L4,L5 root foraminotomies TONSILLECTOMY PRIMARY/SECONDARY <AGE 12 Tonsillectomy VAGINAL HYSTERECTOMY UTERUS 250 GM/< Hysterectomy, vaginal for menorrhagia SOCIAL HISTORY Lived in current [facility] 1 month, 6 attached units in building. Neighbor's basement wall has visible mold. NO visible mold in patient's home.Basement dry and finished.No pets. Patient and daughter smoke, outside the home. Pets: none Tobacco Use: High Risk (07/29/2024) Patient History Smoking Tobacco Use: Every Day Smokeless Tobacco Use: Never Passive Exposure: Not on file PHYSICAL EXAM 07/29/24 1338 BP: 109/74 Pulse: 92 Neurological Exam Cognitive and Language: Alert and answered questions appropriately. Language was fluent. Followed simple and complex commands. Cranial Nerves: Visual hemphill were full tested binocularly to finger counting in all 4 quadrants with no visual extinction. Pupils were equal and both reactive to light. Extraocular movements were full with no diplopia or nystagmus. Facial sensation was normal to light touch in V1 to V3. Facial strength was symmetric. Normal hearing grossly bilaterally. Palatal raise was symmetric. Shoulder shrug was symmetric. Tongue protrusion was symmetric with no fasciculations. Right Left Shoulder Abduction: 5 5 Elbow Extension 5 5 Elbow Flexion 5 5 Wrist Extension 5 5 Finger Extension 5 5 Finger Abduction 5 5 Right Left Hip Flexion 5 5 Knee Extension 5 5 Knee Flexion 4+ 5 Dorsiflexion 5 5 Plantar Flexion 5 5 Rest tremor: absent Tone: Normal in all four limbs Reflexes: Right Left Brachioradialis 2 2 Biceps 2 2 Patella 0 1 Ankle 1 1 Sensory: Absent sensation to temperature, pinprick and vibration in the feet. Vibration intact at the knee bilaterally in the hands bilaterally. Decrease sensation to temperature and pinprick in the hands bilaterally compared to the forearm. Poor proprioception on Romberg testing Coordination: Normal finger to nose and heel to gaston testing bilaterally. Positive romberg. Normal gait. Labs: Lab Results Component Value Date WBC 8.99 06/22/2024 HCT 44.0 06/22/2024 MCV 87.3 06/22/2024 PLT 325 06/22/2024 Lab Results Component Value Date HBA1C 7.1 06/22/2024 HBA1C 8.9 12/06/2023 HBA1C 9.2 11/16/2023 HBA1C 6.4 08/14/2021 HBA1C 6.4 03/30/2021 HBA1C 6.0 10/07/2020 Cholesterol, Total Date Value Ref Range Status 06/22/2024 136 <200 mg/dL Final Comment: <200 mg/dL, Desirable 200-239 mg/dL, Borderline high >239 mg/dL, High HDL Cholesterol Date Value Ref Range Status 06/22/2024 22 (L) >39 mg/dL Final Comment: 40-59 mg/dL, Acceptable >59 mg/dL, High: Negative risk factor for coronary heart disease <40 mg/dL, Low: Positive risk factor for coronary heart disease LDL Cholesterol Date Value Ref Range Status 11/16/2023 38 <100 mg/dL Final Comment: <100 mg/dL, Optimal 100-129 mg/dL, Near optimal/above optimal 130-159 mg/dL, Borderline high 160-189 mg/dL, High >189 mg/dL, Very high Secondary prevention optimal LDL Cholesterol levels are recommended to be < 70 mg/dL Triglyceride Date Value Ref Range Status 06/22/2024 407 (H) <150 mg/dL Final Comment: <150 mg/dL, Normal 150-199 mg/dL, Borderline high 200-499 mg/dL, High >499 mg/dL, Very high Lab Results Component Value Date [id number] 04/28/2020 No components found for: SPEP Radiology: EMG/NCS: 2020 Skin Biopsy: This note was dictated using Geodruid speech recognition software and may contain some errors that were a result of the program not accurately transcribing what was dictated, despite efforts to make corrections. Note that unless urgent, test and MRI results will be discussed at next follow- up visit. PROMIS (Patient-Reported Outcomes Measurement Information System) is a set of person-centered measures that evaluates and monitors physical, social, and emotional health. It can be used with the general population and with individuals living with chronic conditions. PROMIS 10: PHYSICAL AND MENTAL HEALTH: 04/06/2022 PHQ-9 PHQ-2 Score 2 PHQ-9 Score 10 Medical Decision Making: Medical Decision Making Level: 1 - N/A I spent a total of 50 minutes on the date of the service which included preparing to see the patient, myic-se-ntwu patient care, completing clinical documentation, obtaining and/or reviewing separately obtained history, performing a medically appropriate examination, counseling and educating the pat ient/family/caregiver, and ordering medications, tests, or procedures. documented in this encounterUniversity Hospitals Beach[facility]11-14-2024 NoteKettering [facility]11-14-2024 History of Present illness Narrative* Kati Grant LSW - 07/23/2024 1:59 PM EST Value Based Social Work Progress Note Provider Action / FYI PCP Action none Date of Service: 07/23/2024 Patient identified by name/: Yes- via Telephone Referral Source: Referral Patient Outreach: Follow Up Mode of Outreach: Phone Call Response Time: Contact made Patient Needs: In-Home Support Equipment DME/ PERS Assessment: Payor Social supports Patient functional ability Cognitive status Living situation Action Taken: Supportive listening Research re PERS reimbursement Is Patient ready for discharge? No Follow-up Plan [next steps] Medium [15-30 days] Narrative: Received a referral from outreach nurse to assist patient in getting a PERTS unit. Chartreviewed, patient called. Patient called back. States she lives alone on the second floor apartmentunit of a house which she got through [facility]. She is ambulatory but is very unsteady on her feet and has had one prior recent fall. She has to take 19 stairs to get to her unit. She is independent withmeal prep, and self care, but she is unable tyo take baths since she cannot get in and out of the tub safely. Patient also needs assistance with plaster machine tender like heavy lifting etc.. She has Medicare and Medicaid and her monthly income is SSDI in the amount of $1200. She is on food stamps but receives just $23 per month for food. She states she makes do for food and is aware of and uses food bush when needed. She is interested in applying for any program which could help pay for a PERS unit. She has no money to spare at the end of the month to pay for it. Referral initiated with [facility]. They will call her and arrange for her assessment in the home. Interventions: Advocacy Assessment Referral to community resource Stakeholder collaboration BOLIVAR Doan July 23, 2024 3:09 PM documented in this encounterUniversity Hospitals Beachwood [facility] Center11-13-2024 NoteKettering [facility] Behavior[facility] Center11-13-2024 History of Present illness Narrative* Kati Grant LSW - 07/22/2024 3:56 PM EST Value Based Social Work Progress Note Provider Action / RACHAELI PCP Action [place] Date of Service: 07/22/2024 Patient identified by name/: No and left message Referral Source: Referral Patient Outreach: Initial for assistance with life alert/ on Medicaid Mode of Outreach: Phone Call Response Time: Unable to reach (1st Attempt) Left message by: Voicemail BOLIVAR Doan July 22, 2024 3:56 PM documented in this encounterUniversity Hospitals Beachwood [facility] Center11-13-2024 NoteKettering [facility]11-13-2024 History of Present illness Narrative* Tex Foreman RN - 07/22/2024 11:21 AM EST CDM Telephonic Outreach Provider Ulysses/MILEY Pt is having dizziness and gait is unsteady. Fell in March Discussed possible Life Alert. She is on a fixed income and is unable to afford. Offered to speak with about possible resources for Lifeline/Alert Will route to for possible resources available for Life Alert COPD/HTN Contacted for: Routine Telephonic Outreach Contact made with patient: Yes Patient identified by name and date of . Discussed care with patient Saw ortho on 07/10 for pain shoulders, neck and back Ordered an MRI which is scheduled 08/09/24 Is having foot pain and has a neurology appt 07/29 and then an appt with PCP Balance has been off and feels unsteady when showering. Denies falls. Are you experiencing any new or worsening symptoms you need to talk about today? No Disease Specific Do you check your blood pressure at home? Yes, Enter readings: 130/70-85 Do you have new or worsening shortness of breath with activity? No Do you have new or worsening cough? No Do you have new or worsening wheezing? No Do you need to use your rescue (Albuterol) inhaler or nebulizer more often than normal? No Based on concrete finisher apprentice, the following disposition is advised: No symptoms or symptoms present, not severe. Routed to: No Action Needed LISA Education Provided this Outreach: No Tex Foreman RN July 22, 2024 11:42 AM documented in this encounterUniversity Hospitals Beach[facility] Center11-01-2024 Telephone encounter Note * Telephone Encounter - Karissa Collier RN - 07/10/2024 1:59 PM EDT The patient has been identified by name and date of : Yes Caregiver verified no other encounters exist for this prescription request: Yes Caregiver confirmed with patient/requestor that no other refills are due, in the near future, with this provider at this time: Yes The last office visit in the department: 05/19/2024 Does the patient have a future office visit with this provider/department: Yes 07/29/2024 Requested Prescriptions Pending Prescriptions Disp Refills albuterol HFA (VENTOLIN HFA) 90 mcg/actuation inhaler 18 g 3 Sig: Inhale 2 Puffs as instructed every 4 hours as needed. fluticasone-vilanterol (BREO ELLIPTA) 200-25 mcg/dose inhaler 1 Each 5 Sig: Inhale 1 Inhalation as instructed once daily. Karissa Collier RN [facility]11-01-2024 Miscellaneous Notes* Telephone Encounter - Karissa Collier RN - 07/10/2024 1:59 PM EDT The patient has been identified by name and date of : Yes Caregiver verified no other encounters exist for this prescription request: Yes Caregiver confirmed with patient/requestor that no other refills are due, in the near future, with this provider at this time: Yes The last office visit in the department: 05/19/2024 Does the patient have a future office visit with this provider/department: Yes 07/29/2024 Requested Prescriptions Pending Prescriptions Disp Refills albuterol HFA (VENTOLIN HFA) 90 mcg/actuation inhaler 18 g 3 Sig: Inhale 2 Puffs as instructed every 4 hours as needed. fluticasone-vilanterol (BREO ELLIPTA) 200-25 mcg/dose inhaler 1 Each 5 Sig: Inhale 1 Inhalation as instructed once daily. Karissa Collier RN documented in this encounterUniversity Hospitals Beachwood [facility] Center10-31-2024 Telephone encounter Note * Telephone Encounter - Willam Estrada MD - 07/09/2024 11:21 PM EDT Noted has appointment with neurology before appointment with ga 07/29 No change in gabapentin dose at this time. [facility]10-31-2024 Miscellaneous Notes* Telephone Encounter - Willam Estrada MD - 07/09/2024 11:21 PM EDT Noted has appointment with neurology before appointment with ga 07/29 No change in gabapentin dose at this time. * Telephone Encounter - Sriram Cabrales RN - 07/09/2024 5:37 PM EDT Spoke with patient. She wants to see Neurologist before increasing Gabapentin. Transferred to metal building assembler for appointment. Sriram Cabrales RN * Telephone Encounter - Willam Estrada MD - 07/09/2024 3:43 PM EDT Option for neuropathy pain: Increase dose of gabapentin as tolerated Referral to pain management Referral to neurology. Filed the consult to neurology since patient requested as noted below. See if wants to try higher dose gabapentin or see neurologist first * Telephone Encounter - Karla Parker LPN - 07/08/2024 5:48 PM EDT Printed copy of TE to have PCP address. Karla Parker LPN * Telephone Encounter - Corinne Belle LPN - 07/08/2024 3:55 PM EDT Patient calling again, states she had another episode of severe pain in her feet for 3 hours last night. Asking what the recommendation is. Please advise. * Telephone Encounter - Fabiana Hernandez LPN - 07/07/2024 12:42 PM EDT Pt has neuropathy in both feet, she reports pain usually comes & goes but has been horrible thelast 3 wks. Pt rates pain 5-9.5 on pain scale & is constant, wakes her from sleep every couple hrs. Pt is taking gabapentin 300mg 2 caps 2 times daily & says it does not provide any relief. Pt isasking if she should see a neurologist or what is recommended? Fabiana Hernandez LPN documented in this encounterUniversity Hospitals Beachwood [facility] Center10-31-2024 Telephone encounter Note * Telephone Encounter - Sriram Cabrales RN - 07/09/2024 5:37 PM EDT Spoke with patient. She wants to see Neurologist before increasing Gabapentin. Transferred to metal building assembler for appointment. Sriram Cabrales RN [facility]10-31-2024 Telephone encounter Note* Telephone Encounter - Willam Estrada MD - 07/09/2024 3:43 PM EDT Option for neuropathy pain: Increase dose of gabapentin as tolerated Referral to pain management Referral to neurology. Filed the consult to neurology since patient requested as noted below. See if wants to try higher dose gabapentin or see neurologist first [facility]10-30-2024 Telephone encounter Note* Telephone Encounter - Karla Parker LPN - 07/08/2024 5:48 PM EDT Printed copy of TE to have PCP address. Karla Parker LPN [facility]10-30-2024 Telephone encounter Note* Telephone Encounter - Corinne Belle LPN - 07/08/2024 3:55 PM EDT Patient calling again, states she had another episode of severe pain in her feet for 3 hours last night. Asking what the recommendation is. Please advise. [facility]10-29-2024 Telephone encounter Note* Telephone Encounter - Fabiana Hernandez LPN - 07/07/2024 12:42 PM EDT Pt has neuropathy in both feet, she reports pain usually comes & goes but has been horrible thelast 3 wks. Pt rates pain 5-9.5 on pain scale & is constant, wakes her from sleep every couple hrs. Pt is taking gabapentin 300mg 2 caps 2 times daily & says it does not provide any relief. Pt isasking if she should see a neurologist or what is recommended? Fabiana Hernandez LPN [facility]10-27-2024 NoteK[facility]10-25-2024 Note [facility]10-25-2024 History of Present illness Narrative* Oxana Pack RN - 07/03/2024 1:22 PM EDT CDM Telephonic Outreach Provider Action/FYI Monthly outreach call # 1 Contacted for: Routine Telephonic Outreach Contact made with patient: No, left message. Oxana Pack RN July 03, 2024 1:22 PM documented in this encounterUniversity Hospitals [facility]10-21-2024 Telephone encounter Note * Telephone Encounter - Jonnahtan Nagy LPN - 06/29/2024 2:55 PM EDT OK to keep appt. Patient notified. Jonnathan Nagy LPN [facility]10-21-2024 Miscellaneous Notes* Telephone Encounter - Jonnathan Nagy LPN - 06/29/2024 2:55 PM EDT OK to keep appt. Patient notified. Jonnathan Nagy LPN * Telephone Encounter - Deena Flynn LPN - 06/29/2024 11:57 AM EDT Patient called in and is wondering if she should keep her appt with Roxi Click tomorrow since her CT is not back yet. Deena Flynn LPN documented in this encounterUniversity Hospitals [facility] Center10-21-2024 Telephone encounter Note * Telephone Encounter - Deena Flynn LPN - 06/29/2024 11:57 AM EDT Patient called in and is wondering if she should keep her appt with Roxi Click tomorrow since her CT is not back yet. Deena Flynn LPN [facility]10-15-2024 History of Present illness Narrative* Reef Tran Owens, RT(R) - 06/23/2024 3:20 PM EDT Radiology Service Progress Note PATIENT NAME: Garland De Santiago DATE OF SERVICE: June 23, 2024 TIME: 3:52 PM PATIENT IDENTITY VERIFICATION COMPLETED USING TWO (2) IDENTIFIERS: Name and Date of confirmedby patient verbally. FALL SCREENING: Has the patient had 2 falls in the last year or 1 fall with injury or currently using an Ambulatory Assistive Device (Walker, Cane, Wheelchair, Crutches, etc.)? No PATIENT GENDER DATA: Female. status: : No status: NO. PATIENT RELEVANT IMPLANT DATA REVIEWED: Yes PATIENT PRESENTS WITH AN IMPLANTABLE OR ATTACHED CHERRY PICKER OPERATOR: No RADIOLOGY DEPARTMENT: CT; Exam(s) Completed: Chest PERIPHERAL IV DATA: Not applicable SIGNED BY: RT Edwin(R) June 23, 2024 3:52 PM documented in this encounterUniversity Hospitals Beachwood [facility] Center10-15-2024 NoteKettering [facility]10-03-2024 Telephone encounter Note* Telephone Encounter - Willam Estrada MD - 06/11/2024 9:39 PM EDT The following approved medication requests have been transmitted electronically. Requested Prescriptions Signed Prescriptions Disp Refills gabapentin (NEURONTIN) 300 mg capsule 120 capsule 5 Sig: Take 2 capsules by mouth two times a day for 180 days. Authorizing Provider: WILLAM ESTRADA MD [facility]10-03-2024 Miscellaneous Notes* Telephone Encounter - Willam Estrada MD - 06/11/2024 9:39 PM EDT The following approved medication requests have been transmitted electronically. Requested Prescriptions Signed Prescriptions Disp Refills gabapentin (NEURONTIN) 300 mg capsule 120 capsule 5 Sig: Take 2 capsules by mouth two times a day for 180 days. Authorizing Provider: WILLAM ESTRADA MD * Telephone Encounter - Cresencio Sharp MA - 06/11/2024 8:29 AM EDT Prescription Refill Information The patient has been identified by name and date of : Yes Caregiver verified no other encounters exist for this prescription request: Yes Caregiver confirmed with patient/requestor that no other refills are due, in the near future, with this provider at this time: Yes The last office visit in the department: 05/19/2024 Does the patient have a future office visit with this provider/department: Yes Requested Prescriptions Pending Prescriptions Disp Refills gabapentin (NEURONTIN) 300 mg capsule 120 capsule 5 Sig: Take 2 capsules by mouth two times a day for 180 days. Cresencio Sharp MA June 11, 2024 8:29 AM documented in this encounterUniversity Hospitals Beachwood [facility] Center10-03-2024 Telephone encounter Note * Telephone Encounter - Cresencio Sharp MA - 06/11/2024 8:29 AM EDT Prescription Refill Information The patient has been identified by name and date of : Yes Caregiver verified no other encounters exist for this prescription request: Yes Caregiver confirmed with patient/requestor that no other refills are due, in the near future, with this provider at this time: Yes The last office visit in the department: 05/19/2024 Does the patient have a future office visit with this provider/department: Yes Requested Prescriptions Pending Prescriptions Disp Refills gabapentin (NEURONTIN) 300 mg capsule 120 capsule 5 Sig: Take 2 capsules by mouth two times a day for 180 days. Cresencio Sharp MA June 11, 2024 8:29 AM [facility]09-26-2024 NoteKettering Health Behavioral [facility] Center09-26-2024 History of Present illness Narrative* Oxana Pack RN - 06/04/2024 2:46 PM EDT CDM Telephonic Outreach Provider Action/FYI Contacted for: Routine Telephonic Outreach Contact made with patient: Yes Patient identified by name and date of . Discussed care with patient Are you experiencing any new or worsening symptoms you need to talk about today? No Disease Specific Do you check your blood pressure at home? Yes, Enter readings: 117/82 Do you have new or worsening shortness of breath with activity? Yes Do you have new or worsening cough? Yes Do you have new or worsening wheezing? No Do you need to use your rescue (Albuterol) inhaler or nebulizer more often than normal? Yes Based on concrete finisher apprentice, the following disposition is advised: No symptoms or symptoms present, not severe. Routed to: No Action Needed LISA Education Provided this Outreach: Yes Patient states she has been a little more short of breath and coughing up clear phlegm. Patient attributes to the fall approaching. Offered to contact virtualist. Denies current need. Agrees to contact PCP or tax staff accountant should the symptoms get worse. Denies other needs, questions, concerns at this time. Oxana Pack RN June 04, 2024 2:58 PM documented in this encounterUniversity Hospitals Beach[facility] Center09-11-2024 Telephone encounter Note * Telephone Encounter - Allegra Berumen APRN.[facility] - 05/20/2024 10:45 AM EDT COVID-19 Oral Antivirals Review COVID-19 Oral Antiviral Review for TREATMENT of COVID-19: Paxlovid (nirmatrelvir/ritonavir) Paxlovid (nirmatrelvir/ritonavir) [x] 12 years and older (if 12-17 years, must weigh at least 40 kg) [x] Within 5 days of COVID-19 symptom onset [x] Not requiring hospitalization at any time for the management of COVID-19 [x] Not requiring supplemental oxygen or not requiring change in baseline supplemental oxygen (SpO2> 94% on room air or at baseline supplemental oxygen) [x] Not utilized for pre-exposure or post-exposure prophylaxis for prevention of COVID-19 [x] No severe renal impairment (eGFR < 30 mL/min) or severe hepatic impairment (Child-Beach ClassC) [x] No pertinent drug-drug interactions or drug-drug interactions appropriately addressed, advised hold Buspar, Xanax and Trazodone while taking this medication [x] Meets high-risk clinical criteria for progression to severe COVID-19 infection as defined in the COVID-19 treatment considerations Criteria Met: Yes [facility]09-11-2024 Miscellaneous Notes* Telephone Encounter - Allegra Berumen APRN.CNP - 05/20/2024 10:45 AM EDT COVID-19 Oral Antivirals Review COVID-19 Oral Antiviral Review for TREATMENT of COVID-19: Paxlovid (nirmatrelvir/ritonavir) Paxlovid (nirmatrelvir/ritonavir) [x] 12 years and older (if 12-17 years, must weigh at least 40 kg) [x] Within 5 days of COVID-19 symptom onset [x] Not requiring hospitalization at any time for the management of COVID-19 [x] Not requiring supplemental oxygen or not requiring change in baseline supplemental oxygen (SpO2> 94% on room air or at baseline supplemental oxygen) [x] Not utilized for pre-exposure or post-exposure prophylaxis for prevention of COVID-19 [x] No severe renal impairment (eGFR < 30 mL/min) or severe hepatic impairment (Child-Beach ClassC) [x] No pertinent drug-drug interactions or drug-drug interactions appropriately addressed, advised hold Buspar, Xanax and Trazodone while taking this medication [x] Meets high-risk clinical criteria for progression to severe COVID-19 infection as defined in the COVID-19 treatment considerations Criteria Met: Yes * Telephone Encounter - Allegra Berumen APRN.CNP - 05/20/2024 10:44 AM EDT Nirmatrelvir/Ritonavir (Paxlovid) Considerations Paxlovid is FDA-approved for treatment of mild to moderate COVID-19 in adults who are at high risk for progression to severe COVID-19. Consider use of Paxlovid in the following examples of high risk patients (list is not all inclusive): Age over 65 years Cardiovascular and cerebrovascular disease Chronic disease state (kidney, liver, lung) Diabetes (type 1 or type 2) Immunocompromised state (cancer, solid organ or blood stem cell transplant, HIV) Obesity Paxlovid warnings include serious drug interactions (co-administration with drugs highly dependent on CYP3A for clearance), hypersensitivity reactions, hepatotoxicity, and risk of HIV-1 resistance development. Allegra Berumen APRN.CNP May 20, 2024 10:44 AM * Telephone Encounter - Mirlande Amin LPN - 05/20/2024 10:41 AM EDT Patient notified, verbalized understanding. Asking for Paxlovid RX to be sent to [facility].Mirlande Amin LPN * Telephone Encounter - Allegra Berumen APRN.CNP - 05/20/2024 10:35 AM EDT Please return call and let her know it would be ok to take the Paxlovid with the zpack and steroid.The main concern would be that Paxlovid can interact with her Buspar, Trazodone and xanax. I would recommend that she not take those medications while taking the Paxlovid. Does she feel she could hold those medications while taking the Paxlovid? * Telephone Encounter - Karissa Collier RN - 05/20/2024 9:44 AM EDT To add to note below: Patient also asking to clarify if she should take all 3 medications; the Medrol Dose Pack, the Z-Arnulfo and the Paxlovid? Please call patient back with reply to this note, and request below, as soon as able. Thank you. * Telephone Encounter - Nat Malik LPN - 05/20/2024 9:32 AM EDT Patient calling her COVID test came back positive today. Patient is asking for the Paxlovid rx to be sent to [facility]. Please advise documented in this encounterUniversity Hospitals [facility] Center09-11-2024 Telephone encounter Note * Telephone Encounter - Allegra Berumen APRN.CNP - 05/20/2024 10:44 AM EDT Nirmatrelvir/Ritonavir (Paxlovid) Considerations Paxlovid is FDA-approved for treatment of mild to moderate COVID-19 in adults who are at high risk for progression to severe COVID-19. Consider use of Paxlovid in the following examples of high risk patients (list is not all inclusive): Age over 65 years Cardiovascular and cerebrovascular disease Chronic disease state (kidney, liver, lung) Diabetes (type 1 or type 2) Immunocompromised state (cancer, solid organ or blood stem cell transplant, HIV) Obesity Paxlovid warnings include serious drug interactions (co-administration with drugs highly dependent on CYP3A for clearance), hypersensitivity reactions, hepatotoxicity, and risk of HIV-1 resistance development. Allegra Berumen APRN.CNP May 20, 2024 10:44 AM [facility]09-11-2024 Instructions* Patient Instructions* Allegra Berumen APRN.CNP - 05/20/2024 10:44 AM EDT Images from the original note were not included. FACT SHEET FOR PATIENTS, PARENTS, AND CAREGIVERS EMERGENCY USE AUTHORIZATION (EUA) OF PAXLOVID FOR CORONAVIRUS DISEASE 2019 (COVID-19) You are being given this Fact Sheet because your healthcare provider believes it is necessary to provide you with PAXLOVID for the treatment of atnb-rl-ctihbxjp coronavirus disease (COVID-19) caused by the SARS-CoV-2 virus. This Fact Sheet contains information to help you understand the risks and benefits of taking the PAXLOVID you may receive. This Fact Sheet also contains information about how t o take PAXLOVID and how to report side effects or problems with the appearance or packaging of PAXLOVID. The U.S. Food and Drug Administration (FDA) has issued an Emergency Use Authorization (EUA) to makePAXLOVID available for the treatment of olvb-dp-lvclsxny COVID-19 in adults and children 12 years of age and older weighing at least 88 pounds (40 kg) who are at high risk for progression to severe COVID-19, including hospitalization or (for more details about an EUA please see What is an Emergency Use Authorization? at the end of this document). Read this Fact Sheet for information about PAXLOVID. Talk to your healthcare provider about your options or if you have any questions. It is your choice to take PAXLOVID. What is COVID-19? COVID-19 is caused by a virus called a coronavirus. You can get COVID-19 through close contact withanother person who has the virus. COVID-19 illnesses have ranged from very ongw-oh-qsrwlz, including illness resulting in . While information so far suggests that most COVID-19 illness is mild, serious illness can happen and maycause some of your other medical conditions to become worse. Older people and people of all ages with severe, long lasting (chronic) medical conditions like heart disease, lung disease, and diabetes,for example seem to be at higher risk of being hospitalized for COVID-19. What is PAXLOVID? PAXLOVID is a medicine that is available under EUA for the treatment of iayy-sz-mjnjoskj COVID-19 in adults and children 12 years of age and older weighing at least 88 pounds (40 kg) who are at high risk for progression to severe COVID-19, including hospitalization or . Although PAXLOVID is FDA- approved for the treatment of COVID-19 in certain adults (see section What other treatment choicesare there?), PAXLOVID use in children remains investigational because it is still being studied. There is limited information about the safety and effectiveness of using PAXLOVID to treat children with hegp-ch-nibknutf COVID-19. What is the most important information I should know about PAXLOVID? PAXLOVID can interact with other medicines causing severe or life-threatening side effects or . It is important to know the medicines that should not be taken with PAXLOVID. Do not take PAXLOVID if: you are taking any of the following medicines: o alfuzosin o amiodarone o apalutamide o carbamazepine o colchicine o dihydroergotamine o dronedarone o eletriptan o eplerenone o ergotamine o finerenone o flecainide o flibanserin o ivabradine o lomitapide o lovastatin o lumacaftor/ivacaftor o lurasidone o methylergonovine o midazolam (oral) o naloxegol o phenobarbital o phenytoin o pimozide o primidone o propafenone o quinidine o ranolazine o rifampin o rifapentine o Blyn s Wort (hypericum perforatum) o sildenafil (Revatio ) for pulmonary arterial hypertension o silodosin o simvastatin o tolvaptan o triazolam o ubrogepant o voclosporin These are not the only medicines that may cause serious or life-threatening side effects if taken with PAXLOVID. PAXLOVID may increase or decrease the levels of multiple other medicines. It is very important to tell your healthcare provider about all of the medicines you are taking because additional laboratory tests or changes in the dose of your other medicines may be necessary during treatment with PAXLOVID. Your healthcare provider may also tell you about specific symptoms to watch out for that may indicate that you need to stop or decrease the dose of some of your other medicines. you are allergic to nirmatrelvir, ritonavir, or any of the ingredients in PAXLOVID. See the end of this leaflet for a complete list of ingredients in PAXLOVID. See What are the important possible side effects of PAXLOVID? for signs and symptoms of allergic reactions. What should I tell my healthcare provider before I take PAXLOVID? Tell your healthcare provider if you: have kidney problems. You may need a different dose of PAXLOVID. have liver problems, including hepatitis. have Human Immunodeficiency Virus 1 (HIV-1) infection. PAXLOVID may lead to some HIV-1 medicines not working as well in the future. are or plan to become . It is not known if PAXLOVID can harm your unborn baby. Tell your healthcare provider right away if you are or if you become . are or plan to breastfeed. It is not known if PAXLOVID can pass into your breast milk. Talk to your healthcare provider about the best way to feed your baby during treatment with PAXLOVID. Some medicines may interact with PAXLOVID and may cause serious side effects. Tell your healthcare provider about all the medicines you take, including prescription and wehc-fyw-saqcimj medicines, vitamins, and herbal supplements. Your healthcare provider can tell you if it is safe to take PAXLOVID with other medicines. You can ask your healthcare provider or pharmacist for a list of medicines that interact with PAXLOVID. Do not start taking a new medicine without telling your healthcare provider. Tell your healthcare provider if you are taking combined control (hormonal contraceptive). PAXLOVID may affect how your hormonal contraceptives work. Females who are able to become should use another effective alternative form of contraception or an additional barrier method of contraception during treatment with PAXLOVID. Talk to your healthcare provider if you have any questions about contraceptive methods that might be right for you. How do I take PAXLOVID? Take PAXLOVID exactly as your healthcare provider tells you to take it. PAXLOVID consists of 2 medicines: nirmatrelvir tablets and ritonavir tablets. The 2 medicines are taken together 2 times each day for 5 days. Nirmatrelvir is an oval, pink tablet. Ritonavir is a white or off-white tablet. PAXLOVID is available in 2 Dose Packs (see Figures A and B below). Your healthcare provider will prescribe the PAXLOVID Dose Pack that is right for you. If you have kidney disease, your healthcare provider may prescribe a lower dose (see Figure B). Talk to your healthcare provider to make sure you receive the correct Dose Pack. Do not remove your PAXLOVID tablets from the blister card before you are ready to take your dose. Take your first dose of PAXLOVID in the morning or evening, depending on when you corn picker your prescription, or as your healthcare provider tells you to. Swallow the tablets whole. Do not chew, break, or crush the tablets. Take PAXLOVID with or without food. Do not stop taking PAXLOVID without talking to your healthcare provider, even if you feel better. If you miss a dose of PAXLOVID within 8 hours of the time it is usually taken, take it as soon as you remember. If you miss a dose by more than 8 hours, skip the missed dose and take the next dose atyour regular time. Do not take 2 doses of PAXLOVID at the same time. If you take too much PAXLOVID, call your healthcare provider or go to the nearest hospital emergency room right away. If you are taking a ritonavir- or cobicistat-containing medicine to treat hepatitis C or HIV-1 infection, you should continue to take your medicine as prescribed by your healthcare provider. Talk to your healthcare provider if you do not feel better or if you feel worse after 5 days. What are the important possible side effects of PAXLOVID? PAXLOVID may cause serious side effects, including: Allergic reactions, including severe allergic reactions (anaphylaxis) have happened during treatment with PAXLOVID. Stop taking PAXLOVID and get medical help right away if you get any of the following symptoms of an allergic reaction: o skin rash, hives, blisters or peeling skin o painful sores or ulcers in the mouth, nose, throat or genital area o swelling of the mouth, lips, tongue or face o trouble swallowing or breathing o throat tightness o hoarseness Liver Problems. Tell your healthcare provider right away if you get any of the following signs and symptoms of liver problems during treatment with PAXLOVID: o loss of appetite o yellowing of your skin and the white of eyes o dark-colored urine o pale colored stools o itchy skin o stomach-area (abdominal) pain The most common side effects of PAXLOVID include: altered sense of taste and diarrhea. Other possible side effects include: headache vomiting abdominal pain nausea high blood pressure feeling generally unwell These are not all the possible side effects of PAXLOVID. For more information, ask your healthcare provider or pharmacist. What other treatment choices are there? PAXLOVID is FDA-approved for the treatment of focf-jz-gkgtdyay COVID-19 in certain adults; however,there are not sufficient quantities of the approved presentations (i.e., dose packs) of PAXLOVID atthis time. This EUA continues to authorize the emergency use of PAXLOVID for the approved patient population to ensure continued access in order to meet the public health need. VEKLURY (remdesivir) is FDA-approved for the treatment of umgd-su-cykdvtpc COVID-19 in certain adults and children. Talk with your healthcare provider to see if VEKLURY is appropriate for you. For information on the emergency use of other medicines that are authorized by FDA to treat people with COVID-19, please go to https://www.fda.gov/fpausxwlo-xazsqxfpiatz-cwt-response/jhv-poesp-crslphr gat-bmo-lwesqa-framework/intqyypta-spm-ckyuaehdkinvx. Your healthcare provider may talk with you about clinical trials for which you may be eligible. It is your choice to be treated or not to be treated with PAXLOVID. Should you decide not to receive it or for your child not to receive it, it will not change your standard medical care. What if I am or ? There is limited experience treating women or mothers with PAXLOVID. For a mother and unborn baby, the benefit of taking PAXLOVID may be greater than the risk from the treatment. If you are , discuss your options and specific situation with your healthcare provider. If you are , discuss your options and specific situation with your healthcare provider. How do I report side effects or problems with the appearance or packaging of PAXLOVID? Contact your healthcare provider if you have any side effects that bother you or do not go away. Report side effects or problems with the appearance or packaging of PAXLOVID (see Figures A and B above for examples of PAXLOVID Dose Packs) to FDA MedWatch at www.fda.gov/medwatch or call 1-946-PUO-1036 or you can report side effects to [employer]. at the contact information provided below. How should I store PAXLOVID? Store PAXLOVID tablets at room temperature, between 68?F to 77?F (20?C to 25?C). Keep PAXLOVID and all medicines out of the reach of children. What if I have questions about the expiration date for my PAXLOVID? The FDA has extended the expiration date (shelf-life) for some lots of PAXLOVID. To find the extended expiration date, enter the lot number found on the side of carton or bottom of blister pack at this website: https://www.[employer]/ or talk with your healthcare provider. Information onthe authorized shelf-life extensions for PAXLOVID may also be found at https://www.fda.gov/emergency -jklwbjvlrrkm-zpg-studihed/cfd-iihgu-uttuhxohfq-nqr-zjuqfn-sirfsuati/expiration- dating-extension. How can I learn more about COVID-19? Ask your healthcare provider. Visit https://www.cdc.gov/COVID19. Contact your local or state public health department. What is an Emergency Use Authorization (EUA)? The [place] FDA has made PAXLOVID available under an emergency access mechanism called an Emergency Use Authorization (EUA). The EUA is supported by a Cable S[employer]er of Health and Human Services ([facility]) declaration that circumstances exist to justify the emergency use of drugs and biological products during the COVID-19 pandemic. In issuing an EUA, the FDA has determined, among other things, that based on the total amount of scientific evidence available including data from adequate and well-controlled clinical trials, if available, it is reasonable to believe that the product may be effective for diagnosing, treating, or preventing COVID-19, or a serious or life-threatening disease or condition caused by COVID-19; that the known and potential benefits of the product, when used to diagnose, treat, or prevent such disease or condition, outweigh the known and potential risks of such product; and that there are no adequate, approved, and available alternatives. All of these criteria must be met to allow for the product to be available under an EUA. The EUA for PAXLOVID is in effect for the duration of the COVID-19 declaration justifying emergency use of this product, unless the relevant EUA declaration is terminated or the EUA revoked (after which the products may no longer be used under the EUA). What are the ingredients in PAXLOVID? Active ingredient: nirmatrelvir and ritonavir Nirmatrelvir inactive ingredients: colloidal silicon dioxide, croscarmellose sodium, lactose monohydrate, microcrystalline cellulose, and sodium stearyl fumarate. Film-coating contains: hydroxy propyl methylcellulose, iron oxide red, polyethylene glycol, and titanium dioxide. Ritonavir inactive ingredients: anhydrous dibasic calcium phosphate, colloidal silicon dioxide, copovidone, sodium stearyl fumarate, and sorbitan monolaurate. The film coating may contain: colloidal anhydrous silica, colloidal silicon dioxide, hydroxypropyl cellulose, hypromellose, polyethylene glycol, polysorbate 80, talc, and titanium dioxide. Additional Information For general questions, visit the website or call the telephone number provided below. Website: [email or web address] Telephone number: (1-877-c19-PACK) Distributed by [employer] [place] [address] [id number] Revised: 01/2023 documented in [facility] Telephone encounter Note * Telephone Encounter - Mirlande Amin LPN - 05/20/2024 10:41 AM EDT Patient notified, verbalized understanding. Asking for Paxlovid RX to be sent to [facility].Mirlande Amin LPN [facility]09-11-[facility]24 Telephone encounter Note* Telephone Encounter - Allegra Berumen APRN.CNP - 05/20/2024 10:35 AM EDT Please return call and let her know it would be ok to take the Paxlovid with the zpack and steroid.The main concern would be that Paxlovid can interact with her Buspar, Trazodone and xanax. I would recommend that she not take those medications while taking the Paxlovid. Does she feel she could hold those medications while taking the Paxlovid? [facility]09-11-[facility]24 Telephone encounter Note* Telephone Encounter - Karissa Collier RN - 05/20/2024 9:44 AM EDT To add to note below: Patient also asking to clarify if she should take all 3 medications; the Medrol Dose Pack, the Z-Arnulfo and the Paxlovid? Please call patient back with reply to this note, and request below, as soon as able. Thank you. [facility]09-11-[facility]24 Telephone encounter Note* Telephone Encounter - Nat Malik LPN - 05/20/2024 9:32 AM EDT Patient calling her COVID test came back positive today. Patient is asking for the Paxlovid rx to be sent to [facility] [place] [facility]. Please advise [facility]09-10-2024 Instructions* Patient Instructions* Willam Estrada MD - 05/19/2024 7:36 PM EDT -Start taking the Medrol Dose Pack and Z-Arnulfo as prescribed to address your current symptoms and prevent them from worsening. - You will be swabbed for COVID, flu, and RSV today; [facility] or tomorrow. - If your COVID test is positive and you wish to be treated with Paxlovid, please let us know. - You are up to date on your pneumonia vaccines, having received both the PPSV23 and PCV20. - Once you have recovered from your current illness, consider getting your flu shot. - Continue using your nebulizer and inhalers (albuterol, Brio, and Abriolipta) as needed for respiratory symptoms. - A new prescription for Flonase has been sent to your pharmacy with five refills. - Your bladder scan is scheduled for next Saturday with Dr. Nair. documented in this encounterUniversity [facility]-10-[facility] History of Present illness Narrative* Willam Estrada MD - 05/19/2024 7:10 PM EDT This note was created using [employer]. Subjective Garland De Santiago is a 63 year old female. Patient presents with: Same Day Appointment: X 2 days sore throat, cough, headache/sinus pressure and not feeling good SUBJECTIVE: Garland De Santiago is a 63 year old year old lady here today for same day follow up appointment for review of medical conditions. Patient is a 63-year-old female with a history of COPD presenting with a cough, sore throat, and headaches that began a couple of days ago. She reports a maximum temperature of 99.7 degreeF. She has not yet taken the Medrol Dose Pack or Z-Arnulfo prescribed during her last visit on the April 20, andis inquiring if she should start them now due to her current symptoms. Patient reports sinus pressure, nasal congestion, and post-nasal drainage. She denies wheezing but reports chest tightness, which was alleviated with a nebulizer treatment this morning. She feels she may need another treatment soon. She has enough medication for her nebulizer and uses her albuterol inhaler as needed. She also uses Flonase for decongestion and requests a refill. She uses Breo Ellipta daily for her lungs and requests a refill as it is running low. Patient has a recent history of severe urinary tract infections. She was hospitalized for four daysin March due to sepsis from a UTI. On May 08, she went to the ER due to severe dysuria, which worsened even while at the hospital. She was treated with Cipro and had Azo at home. A CT scan showedinflammation of the bladder, and she was checked for a bladder stone. She saw Dr. Snow on May 18, who scheduled a bladder scan for next Saturday to investigate the cause of her recurrent UTIs. She reports intermittent sharp pains in her lower abdomen and difficulty emptying her bladder completely. She was able to provide a small urine sample at Dr. Snow's office but felt her bladder wasstill full. She is not currently experiencing pain and is responding to antibiotics. Patient is concerned that her current respiratory symptoms could be COVID-19, given her recent history of frequent hospital and doctor visits. She inquires about the incubation period for COVID-19. She has previously taken Paxlovid for COVID-19 and tolerated it well. She is also up to date on her pneumonia vaccines, with the most recent being the Prevnar 20 on July 23. She inquires about the need for a flu shot. PAST MEDICAL HISTORY 02/10/2007: Allergic rhinitis, cause unspecified No date: Anxiety No date: Arthritis 02/10/2007: Asthma No date: Depression Comment: Psychiatrist managing (Dr. Bedolla) No date: DM type 2 (diabetes mellitus, type 2) ([facility]) 05/23/2006: Essential hypertension 12/13/2011: Hemorrhage of gastrointestinal tract, unspecified Comment: Had bleeding hemorrhoids in 2011; normal colonoscopy 12/13/2011: Internal hemorrhoids without mention of complication 05/23/2006: Mixed hyperlipidemia No date: Obesity (BMI 30.0-34.9) No date: YARY (obstructive sleep apnea) Comment: Uses BiPAP occasionally 05/23/2006: Other nonspecific abnormal finding Comment: CK Elevation No date: Snoring Current Outpatient Medications Medication Sig busPIRone (BUSPAR) 15 mg tablet Take 0.5 tablets by mouth two times a day. gemfibrozil (LOPID) 600 mg tablet Take 1 tablet by mouth two times a day. metFORMIN ER (GLUCOPHAGE XR) 500 mg 24 hr tablet Take 1 tablet by mouth two times a day before meals. sertraline (ZOLOFT) 100 mg tablet Take 2 tablets by mouth once daily. traZODone (DESYREL) 100 mg tablet Take 1 tablet by mouth daily at bedtime. ALPRAZolam (XANAX) 0.5 mg tablet Take 1 tablet by mouth at bedtime as needed for up to 120 days. Donot start before April 10, 2024. nicotine (NICODERM) 14 mg/24 hr Apply 1 Patch as directed every 24 hours. No smoking with patch. albuterol (PROVENTIL) 2.5 mg /3 mL (0.083 %) nebulizer solution Use 3 mL via nebulizer every 4 hours as needed for wheezing/shortness of breath. ipratropium (ATROVENT) 0.02 % nebulizer solution Use 2.5 mL via nebulizer four times a day as needed. Unit dose pack of 50 hydroCHLOROthiazide 50 mg tablet Take 25 mg by mouth once daily. carvedilol (COREG) 6.25 mg tablet Take 6.25 mg by mouth two times a day with meals. BIPAP Initiate BiPAP @ 20/14 cm of water with heated humidification. Ti Max 1.0, Ti Min 0.3, trigger medium, cycle high. Mask (medium AirFit F10 full face mask or per patient preference) optional chin strap (if indicated) , filters, tubing, humidifier and lifetime supplies. gabapentin (NEURONTIN) 300 mg capsule Take 2 capsules by mouth two times a day for [address] (PROTONIX) 20 mg tablet Take 1 tablet by mouth two times a day. Take on empty stomach, 1/2 hr before meal. potassium chloride (K-TAB) 10 mEq tablet Take 1 tablet by mouth daily with breakfast. glipiZIDE (GLUCOTROL) 5 mg tablet Take 1 tablet (5 mg) by mouth once daily. May take extra half to whole pill daily as needed for blood sugar over 200 fluticasone-vilanterol (BREO ELLIPTA) 200-25 mcg/dose inhaler Inhale 1 Inhalation as instructed once daily. albuterol HFA (VENTOLIN HFA) 90 mcg/actuation inhaler Inhale 2 Puffs as instructed every 4 hours asneeded. lisinopril (ZESTRIL) 20 mg tablet Take 1 tablet by mouth two times a day. blood sugar diagnostic (TRUE METRIX GLUCOSE TEST STRIP) test strip Test blood sugars twice a day DX: E11.65 Insulin: No Use as instructed Nebulizer and Compressor For Neb Use for albuterol and ipratropium nebulizer treatments every 4 hours as needed ibuprofen (MOTRIN) 600 mg tablet Take 1 tablet by mouth every 12 hours. fluticasone (FLONASE) 50 mcg/actuation nasal spray Use 2 Sprays in each nostril once daily. Rinse mouth after use. (Patient taking differently: Use 2 Sprays in each nostril once daily as needed. Rinse mouth after use.) Lancets lancets Test blood sugar(s) 2 times daily. Dx: Type 2 DM - Uncontrolled E11.65 Insulin: No Blood-Glucose Meter monitoring kit Insurance covered or per patient choice. Test blood sugar twice daily plus as needed for symptoms of blood sugars being too high or low. Dx: Type 2 DM - Uncontrolled E11.65 Insulin:No Nebulizer NEBULIZER FOR HOME USE. DX: J45.42 phenazopyridine (PYRIDIUM) 200 mg tablet Take 1 tablet by mouth three times a day as needed. (Patient not taking: Reported on 05/19/2024) syaujs-wmjkucal-hhtaora (CREON 24) 24,000-76,000 -120,000 unit delayed release capsule Take 1 capsule by mouth with meals. With snacks and meals (Patient not taking: Reported on 05/19/2024) pantoprazole DR (PROTONIX) 40 mg tablet Take 40 mg by mouth two times a day. (Patient not taking: Reported on 03/30/2024) ursodiol (ACTIGALL) 300 mg capsule Take 300 mg by mouth twice daily. (Patient not taking: Reported on 04/20/2024) Vitamin E, dl, acetate, (VITAMIN E) 400 unit capsule Take 800 Units by mouth once daily. (Patient not taking: Reported on 04/20/2024) No current facility-administered medications for this visit. Review of Systems Objective BP 110/70 Pulse 82 Temp 37 C (98.6 F) Resp 16 Wt 88.4 kg (194 lb 14.2 oz) SpO2 97% BMI 31.46 kg/m Physical Exam Constitutional: Appearance: Normal appearance. HENT: Head: Normocephalic. Comments: Tender over sinuses, mild Eyes: Conjunctiva/sclera: Conjunctivae normal. Cardiovascular: Rate and Rhythm: Normal rate and regular rhythm. Heart sounds: Normal heart sounds. Pulmonary: Effort: Pulmonary effort is normal. No respiratory distress. Breath sounds: No stridor. Wheezing and rhonchi present. Musculoskeletal: Right lower leg: No edema. Left lower leg: No edema. Skin: General: Skin is warm and dry. Neurological: General: No focal deficit present. Mental Status: She is alert and oriented to person, place, and time. Psychiatric: Mood and Affect: Mood normal. Behavior: Behavior normal. Thought Content: Thought content normal. Judgment: Judgment normal. Assessment and Plan # Sinobronchitis # Acute upper respiratory infection - Symptoms include cough, low-grade fever (99.7 degreeF), sore throat, headaches, sinus pressure, nasal congestion, and post-nasal drainage. - Physical exam reveals tenderness in frontal and maxillary sinuses, scattered low-pitched wheezes,and a few high-pitched wheezes; no crackles or murmurs auscultated. - Initiated Medrol Dose Pack and Z-Arnulfo; patient educated on the use of both medications. - Ordered COVID-19, influenza, and RSV testing; results expected by tonight or tomorrow. - If COVID-19 test is positive, will prescribe Paxlovid. - Patient is up to date on pneumococcal vaccinations, including Prevnar 20 on July 23. - Advised to monitor symptoms and follow up if no improvement; aware of red flag symptoms for ER visit. # Stage 2 moderate COPD by GOLD classification ([facility]) - Recent exacerbation with increased chest tightness; nebulizer treatments providing relief. - Continues daily use of Breo Ellipta; refills sent to pharmacy. - Prescribed Flonase, two sprays in each nostril as needed for decongestion; refills sent to [facility]. - Patient has adequate supply of albuterol for nebulizer and inhaler use. - Discussed potential need for pneumococcal booster in five years due to COPD history. Encounter Diagnosis ICD-10-CM 1. Sinobronchitis J32.9 COVID & INFLUENZA A/B & RSV PCR, ROUTINE J40 2. Stage 2 moderate COPD by GOLD classification ([facility]) J44.9 fluticasone- vilanterol (BREO ELLIPTA) 200-25 mcg/dose inhaler 3. Acute upper respiratory infection J06.9 COVID & INFLUENZA A/B & RSV PCR, ROUTINE 4. Acute viral syndrome B34.9 COVID-19 antigen test (COVID-19 AT-HOME TEST) kit COVID test kits RX given as requested Willam Estrada MD documented in this encounterUniversity [facility]als [facility]08-30-[facility]24 Telephone encounter Note * Telephone Encounter - Keyana Vieira RN - 05/08/2024 8:29 PM EDT Reason for Call: Dysuria., abdominal pain. Outcome: See within 4 hours. States she will go to [place] ED now. Reason for Disposition Diabetes mellitus or weak immune system (e.g., HIV positive, cancer chemo, splenectomy, organ transplant, chronic steroids) Answer Assessment - Initial Assessment Questions 1. SEVERITY: Dysuria 8.5/10. States urethral pain persists even after urinating 2. FREQUENCY: Three voids in the last 90 minutes. 3. PATTERN: Each void. 4. ONSET: Dysuria onset 90 minutes ago. 5. FEVER: 99.5 oral at time of this call. Not treated. 6. PAST UTI: 03/20/24 EMS transport to ED - dx UTI with sepsis 4 day hospitalization. 7. CAUSE: UTI. 8. OTHER SYMPTOMS: Lower abdominal pain, rates 5/10, constant. No pain medication tried. Protocols used: Urination Pain - [id number] [facility]08-30-2024 Miscellaneous Notes* Telephone Encounter - Keyana Vieira RN - 05/08/2024 8:29 PM EDT Reason for Call: Dysuria., abdominal pain. Outcome: See within 4 hours. States she will go to [place] ED now. Reason for Disposition Diabetes mellitus or weak immune system (e.g., HIV positive, cancer chemo, splenectomy, organ transplant, chronic steroids) Answer Assessment - Initial Assessment Questions 1. SEVERITY: Dysuria 8.5/10. States urethral pain persists even after urinating 2. FREQUENCY: Three voids in the last 90 minutes. 3. PATTERN: Each void. 4. ONSET: Dysuria onset 90 minutes ago. 5. FEVER: 99.5 oral at time of this call. Not treated. 6. PAST UTI: 03/20/24 EMS transport to ED - dx UTI with sepsis 4 day hospitalization. 7. CAUSE: UTI. 8. OTHER SYMPTOMS: Lower abdominal pain, rates 5/10, constant. No pain medication tried. Protocols used: Urination Pain - [id number] documented in this encounterUniversity Hospitals [facility]08-29-2024 History of Present illness Narrative* Mona Corrigan MD - 05/07/2024 2:45 PM EDT Images from the original note were not included. . [facility] [place] Note Patient name: Garland De Santiago PCP: Willam Estrada MD CC: Follow-up obstructive lung disease HPI: Garland De Santiago 63 year old female current 36 pack year smoker with PMH significant for allergies, asthma, DM2, HTN, YARY non-compliant with BiPAP. Current inhaled therapy with Breo Ellipta andalbuterol. Participating in lung cancer screening. [facility] Due to an elevated D-dimer she had a CTA of the chest which was pertinent for possible right pulmonary emboli. She was started on Lovenox but had significant hemorrhoidal bleeding necessitating discontinuation of her anticoagulation. Repeat CTA of her chest did not show evidence of pulmonary embolism with initial false positive testing likely due to lackof adequate IV contrast bolus. On lung views of her CT of the chest, she had patchy infiltrates consistent with infection versus atelectasis and a new groundglass nodule. She currently denies significant respiratory symptoms other than dyspnea on exertion. No cough or sputum production. No chest tightness or wheezing. She is trying to quit smoking. She has cut back and is planning on using nicotine patches. DATA: [facility] as well as images SERVICE DATE: 11/11/2023 SERVICE TIME: 11:02 AM Oral Exhaled Nitric Oxide measurement: 6.0 (ppb) PFT 11/2023: Pulmonary function tests show small airways obstruction Imaging / Diagnostic Studies: DATE OF EXAM: Nov 22 2023 3:59PM [facility] 0562 - CT LUNG SCREEN [facility] / COMPARISON: Low-dose screening CT performed at an outside institution, 10/15/2022 RESULT: Are nodules present? Yes, 1-5 nodules If No, go to IMPRESSION. If yes, proceed with characterization of the FIVE largest nodules. Nodule 1: This Solid nodule is located in the Right Upper Lobe on slice number 115 with an average diameter of 5.1 mm (5.7 mm x 4.5 mm). stable from 10/15/22 Nodule 2: This Solid nodule is located in the Left Lower Lobe on slice number 130 with an average diameter of 3.4 mm (4.0 mm x 2.8 mm). Nodule 3: This Solid nodule is located in the Right Lower Lobe on slice number 122 with an average diameter of 2.3 mm (2.8 mm x 1.7 mm). Nodule 4: This Solid nodule is located in the Right Upper Lobe on slice number 126 with an average diameter of 2.1 mm (2.5 mm x 1.7 mm). If this is an ANNUAL LDCT for LCS, please ensure nodule number is the same as in the prior evaluation. Other lung nodule comments: None Other findings: Mild diffuse respiratory bronchiolitis. Mild diffuse bronchial wall thickening throughout both patchy air trapping in all lung lobes. Mild-moderate atherosclerotic calcifications in the aortic arch and descending aorta. Moderate coronary artery calcifications. Small hiatal hernia. Degenerative changes in the thoracic spine. Remote fracture of the posterior left 11th rib. 3 mm calcification or marker clip in the right breast (image 144). Emphysema: None, Not reported, Not reported Coronary Artery Calcifications: Circumflex Moderate; Left Anterior Descending Moderate; Right Coronary Mild I reviewed images which shows mosaic pattern suggestive of air trapping and small pulmonary nodules [facility] 03/23/24: Groundglass nodule, mosaic pattern, patchy infiltrates mainly on the left PAST MEDICAL HISTORY 02/10/2007: Allergic rhinitis, cause unspecified No date: Anxiety No date: Arthritis 02/10/2007: Asthma No date: Depression Comment: Psychiatrist managing (Dr. Bedolla) No date: DM type 2 (diabetes mellitus, type 2) ([facility]) 05/23/2006: Essential hypertension 12/13/2011: Hemorrhage of gastrointestinal tract, unspecified Comment: Had bleeding hemorrhoids in 2011; normal colonoscopy 12/13/2011: Internal hemorrhoids without mention of complication 05/23/2006: Mixed hyperlipidemia No date: Obesity (BMI 30.0-34.9) No date: YARY (obstructive sleep apnea) Comment: Uses BiPAP occasionally 05/23/2006: Other nonspecific abnormal finding Comment: CK Elevation No date: Snoring ALLERGIES Allergen Reactions Cephalosporins Rash Dilaudid [Hydromorp* Mental Status Change Doxycycline GI Upset Sharp pains in stomach Dust Mites Omnicef [Cefdinir] Hives Paxil [Paroxetine] Intolerance excessive sweating Penicillins Hives, Other: See Comments Any medication with penicillin in it. Had been given amoxicillin in 2011 and had reaction Given test dose of 2cc's on 08/17/2019 causing sever flushing along with hypotension Prednisone Intolerance Elevated BS, ER Prozac [Fluoxetine * Mental Status Change, Diarrhea Pseudoephedrine Intolerance Heart racing Vicodin [Hydrocodon* GI Upset busPIRone (BUSPAR) 15 mg tablet Take 0.5 tablets by mouth two times a day. gemfibrozil (LOPID) 600 mg tablet Take 1 tablet by mouth two times a day. metFORMIN ER (GLUCOPHAGE XR) 500 mg 24 hr tablet Take 1 tablet by mouth two times a day before meals. sertraline (ZOLOFT) 100 mg tablet Take 2 tablets by mouth once daily. traZODone (DESYREL) 100 mg tablet Take 1 tablet by mouth daily at bedtime. ALPRAZolam (XANAX) 0.5 mg tablet Take 1 tablet by mouth at bedtime as needed for up to 120 days. Donot start before April 10, 2024. nicotine (NICODERM) 14 mg/24 hr Apply 1 Patch as directed every 24 hours. No smoking with patch. albuterol (PROVENTIL) 2.5 mg /3 mL (0.083 %) nebulizer solution Use 3 mL via nebulizer every 4 hours as needed for wheezing/shortness of breath. ipratropium (ATROVENT) 0.02 % nebulizer solution Use 2.5 mL via nebulizer four times a day as needed. Unit dose pack of 50 phenazopyridine (PYRIDIUM) 200 mg tablet Take 1 tablet by mouth three times a day as needed. hydroCHLOROthiazide 50 mg tablet Take 25 mg by mouth once daily. carvedilol (COREG) 6.25 mg tablet Take 6.25 mg by mouth two times a day with meals. BIPAP Initiate BiPAP @ 20/14 cm of water with heated humidification. Ti Max 1.0, Ti Min 0.3, trigger medium, cycle high. Mask (medium AirFit F10 full face mask or per patient preference) optional chin strap (if indicated) , filters, tubing, humidifier and lifetime supplies. gabapentin (NEURONTIN) 300 mg capsule Take 2 capsules by mouth two times a day for [address] (PROTONIX) 20 mg tablet Take 1 tablet by mouth two times a day. Take on empty stomach, 1/2 hr before meal. potassium chloride (K-TAB) 10 mEq tablet Take 1 tablet by mouth daily with breakfast. glipiZIDE (GLUCOTROL) 5 mg tablet Take 1 tablet (5 mg) by mouth once daily. May take extra half to whole pill daily as needed for blood sugar over 200 fluticasone-vilanterol (BREO ELLIPTA) 200-25 mcg/dose inhaler Inhale 1 Inhalation as instructed once daily. albuterol HFA (VENTOLIN HFA) 90 mcg/actuation inhaler Inhale 2 Puffs as instructed every 4 hours asneeded. xhleat-djoicfhm-kilhnvc (CREON 24) 24,000-76,000 -120,000 unit delayed release capsule Take 1 capsule by mouth with meals. With snacks and meals pantoprazole DR (PROTONIX) 40 mg tablet Take 40 mg by mouth two times a day. (Patient not taking: Reported on 03/30/2024) lisinopril (ZESTRIL) 20 mg tablet Take 1 tablet by mouth two times a day. blood sugar diagnostic (TRUE METRIX GLUCOSE TEST STRIP) test strip Test blood sugars twice a day DX: E11.65 Insulin: No Use as instructed Nebulizer and Compressor For Neb Use for albuterol and ipratropium nebulizer treatments every 4 hours as needed ibuprofen (MOTRIN) 600 mg tablet Take 1 tablet by mouth every 12 hours. fluticasone (FLONASE) 50 mcg/actuation nasal spray Use 2 Sprays in each nostril once daily. Rinse mouth after use. (Patient taking differently: Use 2 Sprays in each nostril once daily as needed. Rinse mouth after use.) ursodiol (ACTIGALL) 300 mg capsule Take 300 mg by mouth twice daily. (Patient not taking: Reported on 04/20/2024) Vitamin E, dl, acetate, (VITAMIN E) 400 unit capsule Take 800 Units by mouth once daily. (Patient not taking: Reported on 04/20/2024) Lancets lancets Test blood sugar(s) 2 times daily. Dx: Type 2 DM - Uncontrolled .65 Insulin: No Blood-Glucose Meter monitoring kit Insurance covered or per patient choice. Test blood sugar twice daily plus as needed for symptoms of blood sugars being too high or low. Dx: Type 2 DM - Uncontrolled E11.65 Insulin:No Nebulizer NEBULIZER FOR HOME USE. DX: J45.42 Social History Tobacco Use Smoking status: Every Day Current packs/day: 1.50 Average packs/day: 1.5 packs/day for 36.0 years (54.0 ttl pk-yrs) Types: Cigarettes Smokeless tobacco: Never Tobacco comments: Working on smoking cessation. Trying every day to quit and down to 8-9 cigarettes daily and quit smoking in the house Vaping Use Vaping status: Never Used Substance Use Topics Alcohol use: No Drug use: No PMH, Social history, family history and surgical history reviewed and updated in EMR REVIEW OF SYSTEMS: CONSTITUTIONAL: No fevers, chills, nightsweats, unintended weight loss CARDIOVASCULAR: No chest pain, dyspnea, palpitations, edema. PULM: See HPI. PSY: No concerns regarding depression, anxiety INTEGUMENTARY: No new skin changes PHYSICAL EXAMINATION: BP 118/78 Pulse 89 Resp 14 SpO2 96% General Appearance: Obese female, NAD. Skin: Skin color, texture, turgor normal, no suspicious rashes or lesions. Head: Normocephalic, no masses, lesions, tenderness or abnormalities. Eyes: Sclera, conjunctiva normal. Oropharynx: Dentures, no thrush. Neck: No JVD, no masses or adenopathy. Lungs: Not labored, normal to percussion, no crackles. Bilateral inspiratory wheezes Cardiac: Regular rate and rhythm, no murmurs or gallops Extremities: No edema or clubbing Assessment/Plan: 1. Lung nodule -New groundglass nodule requiring follow-up -Repeat chest CT 2. Moderate persistent asthma, uncomplicated -Despite smoking does not have significant fixed obstruction nor evidence of emphysema on CT -Smoking cessation strongly encouraged -Continue Breo Ellipta with as needed albuterol 2. Cigarette smoker -Current smoker -Participating in lung cancer screening -Smoking cessation strongly encouraged with plans for use of nicotine patches 4. Class II obesity -Weight loss advised Mona Corrigan MD [facility] [place] documented in this encounterUniversity [facility]als [facility]08-29-2024 NoteK[facility]08-20-2024 NoteKet[facility]08-20-2024 History of Present illness Narrative* Rola Browne RN - 04/28/2024 12:40 PM EDT CDM Telephonic Outreach Provider Action/FYI history of COPD Contacted for: Goals/Falls/ADL Update Contact made with patient: No, left message. Rola Browne RN April 28, 2024 2:05 PM and Engagement Contact made with patient: No, left message. Rola Browne RN April 28, 2024 2:05 PM documented in this encounterUniversity Hospitals [facility]08-12-2024 Instructions* Patient Instructions* Willam Estrada MD - 04/20/2024 12:32 PM EDT -Methylprednisolone (Medrol Dose Pack) prescribed for inflammation in your bronchial tubes; follow the dosing instructions provided, but you may adjust the timing of the doses for convenience as discussed. - Zithromax (Z-Arnulfo) prescribed to have on hand in case of a severe infection (e.g., fever, green sputum, chills); do not start this medication now, but keep it available. - Monitor your blood pressure and adjust your Hydrochlorothiazide (HCTZ) and Lisinopril intake as needed based on your readings and symptoms of lightheadedness or dizziness. - Increase your fluid intake to help manage your blood pressure and overall health; aim for 64 ounces of fluid daily from all sources, including food. - Continue using your asthma medications as prescribed, including your nebulizers and inhalers. - Consider environmental factors that may be affecting your breathing, such as air quality and potential irritants in your home. - Complete blood work before your next appointment in July, including a metabolic panel, blood counts, magnesium level, and a urine test to check for protein spilling through the kidneys. documented in this encounterUniversity Hospitals [facility]08-12-2024 NoteKettering [facility]08-12-2024 History of Present illness Narrative* Willam Estrada MD - 04/20/2024 11:58 AM EDT This note was created using Apprityriter. Subjective Garland De Santiago is a 63 year old female. Patient presents with: Established Patient: X 1 week possible asthma flare up SUBJECTIVE: Garland De Santiago is a 63 year old year old lady here today for acute appointment for review of medical conditions. Patient is a 63-year-old female with a history of asthma, COPD, and diabetes mellitus, presenting today with concerns of a possible asthma flare-up, low blood pressure, and musculoskeletal pain. Patient reports a one-week history of increased wheezing and coughing, which she attributes to a possible asthma flare-up. She has been using her nebulizer more frequently, which provides some relief, especially in the mornings when symptoms are worse. She has also been using her Breo inhaler dailyand her Ventolin inhaler as needed. She started taking Cipro a week ago, but it has not provided relief for her respiratory symptoms. She also reports a sore throat, which she believes may be due to coughing and thick phlegm. Patient was recently hospitalized on March 21 for a bladder infection that progressed to sepsis, affecting her oxygen levels and blood sugar. She was discharged on Levaquin, which she completed. Shehas not been checking her blood sugars regularly since being discharged from the hospital. Patient reports a recent drop in blood pressure, with readings as low as 91/60. She attributes thisto her acute illness and possibly not staying adequately hydrated. She has been taking hydrochlorothiazide, which was recently reduced from 50 mg to 25 mg, as well as carvedilol 6.25 mg twice daily and lisinopril 20 mg daily. Patient also reports musculoskeletal pain in her shoulders, elbows, and wrists, which she believes may be related to the Levaquin she was taking. She has a history of allergies to penicillin and cephalosporins, and has had adverse reactions to prednisone and doxycycline in the past. Patient lives in an old house with multiple irritants, including cigarette smoke and chemical fumesfrom neighbors, which she believes may be exacerbating her respiratory symptoms. She uses an air purifier but has not been able to replace the filter recently. She also reports difficulty with mobility due to living in an upstairs apartment and having to navigate 19 stairs. PAST MEDICAL HISTORY 02/10/2007: Allergic rhinitis, cause unspecified No date: Anxiety No date: Arthritis 02/10/2007: Asthma No date: Centrilobular emphysema ([facility]) No date: Depression Comment: Psychiatrist managing (Dr. Bedolla) No date: DM type 2 (diabetes mellitus, type 2) ([facility]) 05/23/2006: Essential hypertension 12/13/2011: Hemorrhage of gastrointestinal tract, unspecified Comment: Had bleeding hemorrhoids in 2011; normal colonoscopy 12/13/2011: Internal hemorrhoids without mention of complication 05/23/2006: Mixed hyperlipidemia No date: Obesity (BMI 30.0-34.9) No date: YARY (obstructive sleep apnea) Comment: Uses BiPAP occasionally 05/23/2006: Other nonspecific abnormal finding Comment: CK Elevation No date: Snoring Current Outpatient Medications Medication Sig busPIRone (BUSPAR) 15 mg tablet Take 0.5 tablets by mouth two times a day. gemfibrozil (LOPID) 600 mg tablet Take 1 tablet by mouth two times a day. metFORMIN ER (GLUCOPHAGE XR) 500 mg 24 hr tablet Take 1 tablet by mouth two times a day before meals. sertraline (ZOLOFT) 100 mg tablet Take 2 tablets by mouth once daily. traZODone (DESYREL) 100 mg tablet Take 1 tablet by mouth daily at bedtime. ALPRAZolam (XANAX) 0.5 mg tablet Take 1 tablet by mouth at bedtime as needed for up to 120 days. Donot start before April 10, 2024. ketoconazole (NIZORAL) 2 % cream Apply 1 application to affected area once daily. As needed nicotine (NICODERM) 14 mg/24 hr Apply 1 Patch as directed every 24 hours. No smoking with patch. albuterol (PROVENTIL) 2.5 mg /3 mL (0.083 %) nebulizer solution Use 3 mL via nebulizer every 4 hours as needed for wheezing/shortness of breath. ipratropium (ATROVENT) 0.02 % nebulizer solution Use 2.5 mL via nebulizer four times a day as needed. Unit dose pack of 50 phenazopyridine (PYRIDIUM) 200 mg tablet Take 1 tablet by mouth three times a day as needed. hydroCHLOROthiazide 50 mg tablet Take 25 mg by mouth once daily. carvedilol (COREG) 6.25 mg tablet Take 6.25 mg by mouth two times a day with meals. BIPAP Initiate BiPAP @ 20/14 cm of water with heated humidification. Ti Max 1.0, Ti Min 0.3, trigger medium, cycle high. Mask (medium AirFit F10 full face mask or per patient preference) optional chin strap (if indicated) , filters, tubing, humidifier and lifetime supplies. gabapentin (NEURONTIN) 300 mg capsule Take 2 capsules by mouth two times a day for [address] (PROTONIX) 20 mg tablet Take 1 tablet by mouth two times a day. Take on empty stomach, 1/2 hr before meal. potassium chloride (K-TAB) 10 mEq tablet Take 1 tablet by mouth daily with breakfast. glipiZIDE (GLUCOTROL) 5 mg tablet Take 1 tablet (5 mg) by mouth once daily. May take extra half to whole pill daily as needed for blood sugar over 200 fluticasone-vilanterol (BREO ELLIPTA) 200-25 mcg/dose inhaler Inhale 1 Inhalation as instructed once daily. albuterol HFA (VENTOLIN HFA) 90 mcg/actuation inhaler Inhale 2 Puffs as instructed every 4 hours asneeded. pncjbg-uqvqpkem-znndnul (CREON 24) 24,000-76,000 -120,000 unit delayed release capsule Take 1 capsule by mouth with meals. With snacks and meals lisinopril (ZESTRIL) 20 mg tablet Take 1 tablet by mouth two times a day. blood sugar diagnostic (TRUE METRIX GLUCOSE TEST STRIP) test strip Test blood sugars twice a day DX: E11.65 Insulin: No Use as instructed Nebulizer and Compressor For Neb Use for albuterol and ipratropium nebulizer treatments every 4 hours as needed ibuprofen (MOTRIN) 600 mg tablet Take 1 tablet by mouth every 12 hours. fluticasone (FLONASE) 50 mcg/actuation nasal spray Use 2 Sprays in each nostril once daily. Rinse mouth after use. (Patient taking differently: Use 2 Sprays in each nostril once daily as needed. Rinse mouth after use.) Lancets lancets Test blood sugar(s) 2 times daily. Dx: Type 2 DM - Uncontrolled E11.65 Insulin: No Blood-Glucose Meter monitoring kit Insurance covered or per patient choice. Test blood sugar twice daily plus as needed for symptoms of blood sugars being too high or low. Dx: Type 2 DM - Uncontrolled E11.65 Insulin:No Nebulizer NEBULIZER FOR HOME USE. DX: J45.[address] (PROTONIX) 40 mg tablet Take 40 mg by mouth two times a day. (Patient not taking: Reported on 03/30/2024) ursodiol (ACTIGALL) 300 mg capsule Take 300 mg by mouth twice daily. (Patient not taking: Reported on 04/20/2024) Vitamin E, dl, acetate, (VITAMIN E) 400 unit capsule Take 800 Units by mouth once daily. (Patient not taking: Reported on 04/20/2024) No current facility-administered medications for this visit. Review of Systems Objective BP 91/60 Pulse 91 Temp 36.4 C (97.6 F) Resp 18 Wt 88.5 kg (195 lb 1.7 oz) SpO2 98% BMI 31.49 kg/m Physical Exam Constitutional: Appearance: Normal appearance. HENT: Head: Normocephalic. Eyes: Conjunctiva/sclera: Conjunctivae normal. Cardiovascular: Rate and Rhythm: Normal rate and regular rhythm. Heart sounds: Normal heart sounds. Pulmonary: Effort: Pulmonary effort is normal. Breath sounds: Normal breath sounds. Skin: General: Skin is warm and dry. Neurological: General: No focal deficit present. Mental Status: She is alert and oriented to person, place, and time. Psychiatric: Mood and Affect: Mood normal. Behavior: Behavior normal. Thought Content: Thought content normal. Judgment: Judgment normal. Assessment and Plan Acute bronchitis with chronic obstructive pulmonary disease (COPD) (HCC) (HCC): Treatment as discussed. See patient instructions Essential hypertension: - Patient experiencing low blood pressure readings, potentially related to acute illness and medication effects. - Advised to hold hydrochlorothiazide (HCTZ) when blood pressure is low and to monitor blood pressure regularly, especially before taking antihypertensive medications. - Patient educated on the importance of hydration in managing blood pressure levels. Type 2 diabetes mellitus with hyperglycemia, without long-term current use of insulin (HCC): - Patient's last A1c in November was 8.9, indicating suboptimal glycemic control. - Patient has not been monitoring blood sugars since hospital discharge. - Encouraged regular blood glucose monitoring, especially in the context of steroid use for bronchitis/COPD, which may cause blood sugar elevations. - Scheduled routine labs to monitor A1c and other relevant parameters. Mixed hyperlipidemia: - Lipid profile to be checked as part of routine labs, given the patient's history of mixed hyperlipidemia. - Patient to continue current lipid-lowering therapy and follow-up on results. Severe persistent asthma with acute exacerbation: - Patient experiencing an acute exacerbation of asthma, managed with increased use of nebulizer treatments and maintenance inhalation therapy. - No changes to asthma medications at this time; focus on treating bronchitis and monitoring for any signs of infection that may warrant antibiotic use. Encounter for long-term current use of medication: - Review and management of patient's current medication regimen, including the potential need for adjustments based on symptom management and side effect profiles. - Patient to continue with current medications, with particular attention to the use of steroids and their impact on blood sugar levels. Class 1 obesity due to excess calories with body mass index (BMI) of 30.0 to 30.9 in adult, unspecified whether serious comorbidity present: - Patient has a goal of weight reduction, which may help in reducing the need for certain medications. - Discussed the importance of a balanced diet, focusing on increasing intake of vegetables and proteins while reducing carbohydrate intake. - Encouraged patient to continue monitoring weight and to discuss any significant changes during follow-up visits. I spent a total of 34 minutes on the date of the service which included [id number] patient care, completing clinical documentation, obtaining and/or reviewing separately obtained history, performing a medically appropriate examination, counseling and educating the patient/family/caregiver, and ordering medications, tests, or procedures. Willam Estrada MD documented in this encounterUniversity Hospitals [facility]08-11-2024 Telephone encounter Note * Telephone Encounter - Renu Peña RN - 04/19/2024 1:09 PM EDT Reason for Call: Wheezing and increased use of nebulizer, recent hospitalization. Outcome: Advised to be seen within 24 hours. Caller conferenced to [facility] appointment center for available appointment in office of PCP. Caller also given alternate options for care including [facility], emergency department for worsening symptoms. Renu Peña RN Patient also inquiring is she should continue to take ciprofloxacin HCl 500 mg ORAL 2 TIMES DAILY. At time of last appointment she was instructed to start the medication if she started to have similar symptoms. Patient started the medication last Saturday and has enough for tonight and tomorrow. Reason for Disposition [1] MILD asthma attack (e.g., no SOB at rest, mild SOB with walking, speaks normally in sentences, mild wheezing) AND [2] lasting > 24 hours on prescribed treatment [1] Wheezing (high pitched whistling sound) AND [2] previous asthma attacks or use of asthma medicines Answer Assessment - Initial Assessment Questions 1. RESPIRATORY STATUS: Chest feels heavy and cannot get a full breath, is wheezing 2. ONSET: Last Saturday04/13/2024 3. TRIGGER: Returning sick symptoms since being admitted lat month for sepsis with UTI. Patient states a neighbor in the apartment below her was putting toilet bowl drops or some kind of air freshener in her register causing a potent smell throughout the apartment air ducts for weeks. 4. PEAK EXPIRATORY FLOW RATE (PEFR): No 5. SEVERITY: MODERATE: SOB at rest, SOB with minimal exertion and prefers to sit, cannot lie down flat, speaks in phrases, mild retractions, audible wheezing, pulse 100-120. (YELLOW Zone: PEFR 50-79%) Mild to moderate 6. ASTHMA MEDICINES: Does Abrio every morning, wheezing and tight chest worse when first waking up. Also tries the albuterol inhaler in the morning. 7. INHALED QUICK-RELIEF TREATMENTS FOR THIS ATTACK: Has an albuterol puffer but does not seem to help at all Is using nebulizer and is coughing up think white phlegm. Is needing to use the nebulizer every 5 hours 8. OTHER SYMPTOMS: Shoulders have been hurting when she goes to reach up into the closet. Has a cough and wheezing. Shoulders have been hurting for 5 days now. 9. O2 SATURATION MONITOR: 97-98%, BP currently 114/72, pulse 82 10. : No 11. BP was running high when hospitalized and patient questioning if this is any side effects with breathing Protocols used: Breathing Gxaynzhliz-PODSS-TI, Asthma Isxwyp-HEGXC-TF [facility]08-11-2024 Miscellaneous Notes* Telephone Encounter - Renu Peña RN - 04/19/2024 1:09 PM EDT Reason for Call: Wheezing and increased use of nebulizer, recent hospitalization. Outcome: Advised to be seen within 24 hours. Caller conferenced to [facility] in appointment center for available appointment in office of PCP. Caller also given alternate options for care including [facility], emergency department for worsening symptoms. Renu Peña RN Patient also inquiring is she should continue to take ciprofloxacin HCl 500 mg ORAL 2 TIMES DAILY. At time of last appointment she was instructed to start the medication if she started to have similar symptoms. Patient started the medication last Saturday and has enough for tonight and tomorrow. Reason for Disposition [1] MILD asthma attack (e.g., no SOB at rest, mild SOB with walking, speaks normally in sentences, mild wheezing) AND [2] lasting > 24 hours on prescribed treatment [1] Wheezing (high pitched whistling sound) AND [2] previous asthma attacks or use of asthma medicines Answer Assessment - Initial Assessment Questions 1. RESPIRATORY STATUS: Chest feels heavy and cannot get a full breath, is wheezing 2. ONSET: Last Saturday04/13/2024 3. TRIGGER: Returning sick symptoms since being admitted lat month for sepsis with UTI. Patient states a neighbor in the apartment below her was putting toilet bowl drops or some kind of air freshener in her register causing a potent smell throughout the apartment air ducts for weeks. 4. PEAK EXPIRATORY FLOW RATE (PEFR): No 5. SEVERITY: MODERATE: SOB at rest, SOB with minimal exertion and prefers to sit, cannot lie down flat, speaks in phrases, mild retractions, audible wheezing, pulse 100-120. (YELLOW Zone: PEFR 50-79%) Mild to moderate 6. ASTHMA MEDICINES: Does Abrio every morning, wheezing and tight chest worse when first waking up. Also tries the albuterol inhaler in the morning. 7. INHALED QUICK-RELIEF TREATMENTS FOR THIS ATTACK: Has an albuterol puffer but does not seem to help at all Is using nebulizer and is coughing up think white phlegm. Is needing to use the nebulizer every 5 hours 8. OTHER SYMPTOMS: Shoulders have been hurting when she goes to reach up into the closet. Has a cough and wheezing. Shoulders have been hurting for 5 days now. 9. O2 SATURATION MONITOR: 97-98%, BP currently 114/72, pulse 82 10. : No 11. BP was running high when hospitalized and patient questioning if this is any side effects with breathing Protocols used: Breathing Ykgbmgjpee-SVVPY-JG, Asthma Kpgnnt-XFHNB-RW documented in this encounterUniversity Hospitals Beachwood [facility] Center08-01-2024 NoteKet[facility]08-01-2024 History of Present illness Narrative* Alyssa Hathaway RN - 04/09/2024 3:40 PM EDT Transitional Care Management (TCM) Follow-Up Note PCP Update / Actionable Items Pt reports she is feeling much improved over the last 2 weeks. BP has been WNL. Breathing well. Denies any SOB , chest discomfort, cough, wheezing. N/A - No specialty updates needed Patient Source: [facility]jj-rx-[place] (OON) Discharge Pt discharged from [facility] on 03/24/24. Admitted for: UTI, pneumonia , sepsis Readmission Risk: n/a Value-Based Contract: ACO Contact: Contact made with patient: Yes Spoke to: Patient Validation: Validated the person spoken to is actively involved in the patient's care. The patient was identified by Name and Date of . I'd like to get an update on how you're doing since our last phone call. Is now a good time to talk? Yes Symptoms: Are you feeling about the same, better or worse since leaving the hospital? Better Weekly Outreach: 3rd Outreach (Reminder to complete appropriate education topics with the patient.) Medications: Do you have any questions about taking your medications, including which medications you should be on, or do you need refills on your medications? No Patient Questions / Concerns: Do you have any questions related to your discharge? No Appointment / TCM Follow-Up: Have you had a follow-up visit with your Primary Care Provider or Specialist since you were discharged? Yes Do you need any assistance with scheduling or changing your follow-up appointments? Patient alreadyhas an appointment scheduled Education Patient and family educated on issues/questions related to reason for admission, transition of caretopics, and follow-up needed upon discharge. Targets addressed / completed during outreach: Prevent readmission for 30 days Outreach Outcome: Continue TCM Outreach for remainder of 30 days Care Management partners utilized: N/A Alyssa Hathaway RN April 09, 2024 3:45 PM documented in this encounterUniversity Hospitals [facility] Center07-29-2024 Telephone encounter Note * Telephone Encounter - Derick Goddard LPN - 04/06/2024 2:34 PM EDT PATIENT NOTIFIED OF SAME. Will contact his office to request the refill. [facility]07-29-2024 Miscellaneous Notes* Telephone Encounter - Derick Goddard LPN - 04/06/2024 2:34 PM EDT PATIENT NOTIFIED OF SAME. Will contact his office to request the refill. * Telephone Encounter - Leilani Ramirez APRN.CNS - 04/06/2024 2:28 PM EDT It looks like Dr. Caceres gastroenterology at [facility] has ordered this, if she is still seeing him would recommend she check with him for refill first and let us know if any problems * Telephone Encounter - Derick Goddard LPN - 04/06/2024 1:15 PM EDT Prescription Refill Information The patient has been identified by name and date of : Yes Caregiver verified no other encounters exist for this prescription request: Yes Caregiver confirmed with patient/requestor that no other refills are due, in the near future, with this provider at this time: Yes The last office visit in the department: 03/30/24 Does the patient have a future office visit with this provider/department: Yes 07/29/24 Requested Prescriptions Pending Prescriptions Disp Refills ursodiol (ACTIGALL) 300 mg capsule 180 capsule 3 Sig: Take 1 capsule by mouth two times a day. Derick Goddard LPN April 06, 2024 1:16 PM documented in this encounterUniversity Hospitals Beachwood [facility] Center07-29-2024 Telephone encounter Note * Telephone Encounter - Leilani Ramirez APRN.CNS - 04/06/2024 2:28 PM EDT It looks like Dr. Caceres gastroenterology at [facility] has ordered this, if she is still seeing him would recommend she check with him for refill first and let us know if any problems [facility]07-29-2024 Telephone encounter Note* Telephone Encounter - Derick Goddard LPN - 04/06/2024 1:15 PM EDT Prescription Refill Information The patient has been identified by name and date of : Yes Caregiver verified no other encounters exist for this prescription request: Yes Caregiver confirmed with patient/requestor that no other refills are due, in the near future, with this provider at this time: Yes The last office visit in the department: 03/30/24 Does the patient have a future office visit with this provider/department: Yes 07/29/24 Requested Prescriptions Pending Prescriptions Disp Refills ursodiol (ACTIGALL) 300 mg capsule 180 capsule 3 Sig: Take 1 capsule by mouth two times a day. Derick Gdodard LPN April 06, 2024 1:16 PM [facility]07-29-2024 Telephone encounter Note* Telephone Encounter - Cristiane Figueroa LPN - 04/06/2024 12:57 PM EDT Prescription Refill Information The patient has been identified by name and date of : Yes Caregiver verified no other encounters exist for this prescription request: Yes Caregiver confirmed with patient/requestor that no other refills are due, in the near future, with this provider at this time: Yes The last office visit in the department: 03/30/24 Does the patient have a future office visit with this provider/department: Yes Requested Prescriptions Pending Prescriptions Disp Refills ketoconazole (NIZORAL) 2 % cream 30 g 0 Sig: Apply 1 application to affected area once daily. Cristiane Figueroa LPN April 06, 2024 12:58 PM [facility]07-29-2024 Miscellaneous Notes* Telephone Encounter - Cristiane Figueroa LPN - 04/06/2024 12:57 PM EDT Prescription Refill Information The patient has been identified by name and date of : Yes Caregiver verified no other encounters exist for this prescription request: Yes Caregiver confirmed with patient/requestor that no other refills are due, in the near future, with this provider at this time: Yes The last office visit in the department: 03/30/24 Does the patient have a future office visit with this provider/department: Yes Requested Prescriptions Pending Prescriptions Disp Refills ketoconazole (NIZORAL) 2 % cream 30 g 0 Sig: Apply 1 application to affected area once daily. Cristiane Figueroa LPN April 06, 2024 12:58 PM documented in this encounterUniversity Hospitals [facility] Center07-29-2024 Telephone encounter Note * Telephone Encounter - Cristiane Figueroa LPN - 04/06/2024 12:54 PM EDT Prescription Refill Information The patient has been identified by name and date of : Yes Caregiver verified no other encounters exist for this prescription request: Yes Caregiver confirmed with patient/requestor that no other refills are due, in the near future, with this provider at this time: Yes The last office visit in the department: 03/30/24 Does the patient have a future office visit with this provider/department: Yes Requested Prescriptions Pending Prescriptions Disp Refills busPIRone (BUSPAR) 15 mg tablet 30 tablet 11 Sig: Take 0.5 tablets by mouth two times a day. gemfibrozil (LOPID) 600 mg tablet 60 tablet 11 Sig: Take 1 tablet by mouth two times a day. metFORMIN ER (GLUCOPHAGE XR) 500 mg 24 hr tablet 60 tablet 11 Sig: Take 1 tablet by mouth two times a day before meals. sertraline (ZOLOFT) 100 mg tablet 60 tablet 11 Sig: Take 2 tablets by mouth once daily. traZODone (DESYREL) 100 mg tablet 30 tablet 11 Sig: Take 1 tablet by mouth daily at bedtime. ALPRAZolam (XANAX) 0.5 mg tablet 30 tablet 3 Sig: Take 1 tablet by mouth at bedtime as needed for up to 120 days. Cristiane Figueroa LPN April 06, 2024 12:57 PM [facility]07-29-2024 Miscellaneous Notes* Telephone Encounter - Cristiane Figueroa LPN - 04/06/2024 12:54 PM EDT Prescription Refill Information The patient has been identified by name and date of : Yes Caregiver verified no other encounters exist for this prescription request: Yes Caregiver confirmed with patient/requestor that no other refills are due, in the near future, with this provider at this time: Yes The last office visit in the department: 03/30/24 Does the patient have a future office visit with this provider/department: Yes Requested Prescriptions Pending Prescriptions Disp Refills busPIRone (BUSPAR) 15 mg tablet 30 tablet 11 Sig: Take 0.5 tablets by mouth two times a day. gemfibrozil (LOPID) 600 mg tablet 60 tablet 11 Sig: Take 1 tablet by mouth two times a day. metFORMIN ER (GLUCOPHAGE XR) 500 mg 24 hr tablet 60 tablet 11 Sig: Take 1 tablet by mouth two times a day before meals. sertraline (ZOLOFT) 100 mg tablet 60 tablet 11 Sig: Take 2 tablets by mouth once daily. traZODone (DESYREL) 100 mg tablet 30 tablet 11 Sig: Take 1 tablet by mouth daily at bedtime. ALPRAZolam (XANAX) 0.5 mg tablet 30 tablet 3 Sig: Take 1 tablet by mouth at bedtime as needed for up to 120 days. Cristiane Figueroa LPN April 06, 2024 12:57 PM documented in this encounterUniversity Hospitals Beachwood [facility] Center07-25-2024 Telephone encounter Note * Telephone Encounter - Mirlande Amin LPN - 04/02/2024 8:43 AM EDT Patient notified of below results/recommendations. Garland is wanting to push fluids and see if the symptoms resolve. Mirlande Amin LPN [facility]07-25-2024 Miscellaneous Notes* Telephone Encounter - Mirlande Amin LPN - 04/02/2024 8:43 AM EDT Patient notified of below results/recommendations. Garland is wanting to push fluids and see if the symptoms resolve. Mirlande Amin LPN * Telephone Encounter - Willam Estrada MD - 04/02/2024 1:04 AM EDT Hyaline casts not really concerning for kidney problems (other types of casts can be). Urine culture did not grown anything significant--final results. If having persistent symptoms, options are to (1) retest urine studies now, or (2) treat with antibiotic if having worsening UTI symptoms, or (3)keep pushing fluids and see if UTI pain and urgency and frequency resolve. Can refer to urology as needed. See what she prefers to do now--take antibiotic or wait and see if symptoms improve. * Telephone Encounter - Nat Malik LPN - 03/31/2024 1:03 PM EDT Patient calling asking if she should fill the Cipro rx? Aware the urine culture is not back as yet.She is having pressure and frequency, she feels the UTI is not cleared. Patient said she is drinking plenty of fluids. She is concerned since urine test showed Hyaline casts, concern she has kidney disease? Please advise documented in this encounterUniversity Hospitals Beachwood [facility] Center07-25-2024 Telephone encounter Note * Telephone Encounter - Willam Estrada MD - 04/02/2024 1:04 AM EDT Hyaline casts not really concerning for kidney problems (other types of casts can be). Urine culture did not grown anything significant--final results. If having persistent symptoms, options are to (1) retest urine studies now, or (2) treat with antibiotic if having worsening UTI symptoms, or (3)keep pushing fluids and see if UTI pain and urgency and frequency resolve. Can refer to urology as needed. See what she prefers to do now--take antibiotic or wait and see if symptoms improve. [facility]07-23-2024 Telephone encounter Note* Telephone Encounter - Nat Malik LPN - 03/31/2024 1:03 PM EDT Patient calling asking if she should fill the Cipro rx? Aware the urine culture is not back as yet.She is having pressure and frequency, she feels the UTI is not cleared. Patient said she is drinking plenty of fluids. She is concerned since urine test showed Hyaline casts, concern she has kidney disease? Please advise [facility]07-22-2024 NoteK[facility]07-22-2024 History of Present illness Narrative* Willam Estrada MD - 03/30/2024 3:08 PM EDT Transitional Care Management TCM Eligibility Documentation Program: Transitional Care Management Status: Enrolled Effective Dates: 03/26/2024 - present Responsible Staff: Alyssa Hathaway RN Discharge date: 03/24/2024 (Program start) Date of initial contact: 03/26/2024 Initial contact Target status: No contact; Completed at least 2 attempts within 2 business days post-discharge Provider Documentation Garland De Santiago is a 63 year old female here today for a follow up from recent hospitalization. Mayur reviewed the patient's hospital course including discharge summary, discharge medications , and follow up needs with the patient and any family members present at today's visit. HPI Patient presents with: ED Follow-up Hospital F/U: [facility] follow up from 03/21/24 - 03/24/24 SUBJECTIVE: Garland De Santiago is a 63 year old year old lady here today for hospital TCM follow up appointment for review of medical conditions. Was admitted for sepsis and UTI. Still really tired. Feels like has UTI--hurts where she pees from and hurts in bladder when pees. Worried will get worse after antibiotic done., Feels like something coming out when up and walking (prolapse). Gas entrapment symptoms. Dr. Caceres did a lot of tests and no answers. Told that has gas and bloating issues. Issue with intestines. Told to get off some pills--told on too many. BP 106 to 107 over 69 to 75. Sugars 158, 177. Glad sugars under 200 Having some right back pain from lower rib cage to iliac crest. Hurts to sit down. Tends to have tosit leaning forward. Has left foot on something while standing to do dishes. Noted cardiology switched 2 meds. Stopped dairy in September because of stomach issue and started losing weight faster. Finished Levaquin 750 mg daily on Saturday. UTI symptoms feel worse since stopped antibiotic. Almost quit smoking. Half cig twice one day. Wants to quit. Can smell now. Wants 14 patch then 7. Had bladder sling late 1989. Gas and constipation ongoing. PAST MEDICAL HISTORY Diagnosis Date Allergic rhinitis, cause unspecified 02/10/2007 Anxiety Arthritis Asthma 02/10/2007 Centrilobular emphysema (HCC) Depression Psychiatrist managing (Dr. Bedolla) DM type 2 (diabetes mellitus, type 2) ([facility]) Essential hypertension 05/23/2006 Hemorrhage of gastrointestinal tract, unspecified 12/13/2011 Had bleeding hemorrhoids in 2011; normal colonoscopy Internal hemorrhoids without mention of complication 12/13/2011 Mixed hyperlipidemia 05/23/2006 Obesity (BMI 30.0-34.9) YARY (obstructive sleep apnea) Uses BiPAP occasionally Other nonspecific abnormal finding 05/23/2006 CK Elevation Snoring Current Outpatient Medications Medication Sig albuterol (PROVENTIL) 2.5 mg /3 mL (0.083 %) nebulizer solution Use 3 mL via nebulizer every 4 hours as needed for wheezing/shortness of breath. ipratropium (ATROVENT) 0.02 % nebulizer solution Use 2.5 mL via nebulizer four times a day as needed. Unit dose pack of 50 phenazopyridine (PYRIDIUM) 200 mg tablet Take 1 tablet by mouth three times a day as needed. hydroCHLOROthiazide 50 mg tablet carvedilol (COREG) 6.25 mg tablet Take 6.25 mg by mouth two times a day with meals. BIPAP Initiate BiPAP @ 20/14 cm of water with heated humidification. Ti Max 1.0, Ti Min 0.3, trigger medium, cycle high. Mask (medium AirFit F10 full face mask or per patient preference) optional chin strap (if indicated) , filters, tubing, humidifier and lifetime supplies. gabapentin (NEURONTIN) 300 mg capsule Take 2 capsules by mouth two times a day for [address] (PROTONIX) 20 mg tablet Take 1 tablet by mouth two times a day. Take on empty stomach, 1/2 hr before meal. potassium chloride (K-TAB) 10 mEq tablet Take 1 tablet by mouth daily with breakfast. ALPRAZolam (XANAX) 0.5 mg tablet Take 1 tablet by mouth at bedtime as needed for up to 120 days. Donot start before December 08, 2023. glipiZIDE (GLUCOTROL) 5 mg tablet Take 1 tablet (5 mg) by mouth once daily. May take extra half to whole pill daily as needed for blood sugar over 200 fluticasone-vilanterol (BREO ELLIPTA) 200-25 mcg/dose inhaler Inhale 1 Inhalation as instructed once daily. albuterol HFA (VENTOLIN HFA) 90 mcg/actuation inhaler Inhale 2 Puffs as instructed every 4 hours asneeded. wncnzg-ychgbqvv-itoaqna (CREON 24) 24,000-76,000 -120,000 unit delayed release capsule Take 1 capsule by mouth with meals. With snacks and meals lisinopril (ZESTRIL) 20 mg tablet Take 1 tablet by mouth two times a day. blood sugar diagnostic (TRUE METRIX GLUCOSE TEST STRIP) test strip Test blood sugars twice a day DX: E11.65 Insulin: No Use as instructed Nebulizer and Compressor For Neb Use for albuterol and ipratropium nebulizer treatments every 4 hours as needed ibuprofen (MOTRIN) 600 mg tablet Take 1 tablet by mouth every 12 hours. busPIRone (BUSPAR) 15 mg tablet Take 0.5 tablets by mouth twice daily. fluticasone (FLONASE) 50 mcg/actuation nasal spray Use 2 Sprays in each nostril once daily. Rinse mouth after use. gemfibrozil (LOPID) 600 mg tablet Take 1 tablet by mouth twice daily. metFORMIN ER (GLUCOPHAGE XR) 500 mg 24 hr tablet Take 1 tablet by mouth twice daily before meals. sertraline (ZOLOFT) 100 mg tablet Take 2 tablets by mouth once daily. traZODone (DESYREL) 100 mg tablet Take 1 tablet by mouth daily at bedtime. ursodiol (ACTIGALL) 300 mg capsule Take 300 mg by mouth twice daily. Vitamin E, dl, acetate, (VITAMIN E) 400 unit capsule Take 800 Units by mouth once daily. Lancets lancets Test blood sugar(s) 2 times daily. Dx: Type 2 DM - Uncontrolled E11.65 Insulin: No ketoconazole (NIZORAL) 2 % cream Apply 1 application to affected area once daily. (Patient taking differently: Apply 1 application to affected area once daily. As needed) Blood-Glucose Meter monitoring kit Insurance covered or per patient choice. Test blood sugar twice daily plus as needed for symptoms of blood sugars being too high or low. Dx: Type 2 DM - Uncontrolled E11.65 Insulin:No Nebulizer NEBULIZER FOR HOME USE. DX: J45.[address] (PROTONIX) 40 mg tablet Take 40 mg by mouth two times a day. (Patient not taking: Reported on 03/30/2024) atenolol (TENORMIN) 50 mg tablet Take 1 tablet by mouth once daily. May also take 0.5-1 tablets once daily as needed (for blood pressure over 180/120). (Patient not taking: Reported on 03/20/2024) furosemide (LASIX) 20 mg tablet Take 1 tablet by mouth once daily. (Patient not taking: Reported on03/30/2024) No current facility-administered medications for this visit. Review of Systems BP 92/60 Pulse 86 Temp 36.3 C (97.4 F) Resp 18 Wt 87.2 kg (192 lb 4.8 oz) SpO2 98% BMI 31.04 kg/m Last 5 Encounter Wt Readings: Date: Wt: 03/30/2024 87.2 kg (192 lb 4.8 oz) 03/20/2024 87 kg (191 lb 12.8 oz) 03/04/2024 87.8 kg (193 lb 9 oz) 02/18/2024 89.4 kg (197 lb) 11/19/2023 89.8 kg (198 lb) No waist measurement recorded Estimated body mass index is 31.04 kg/m as calculated from the following: Height as of 11/19/23: 167.6 cm (5' 6). Weight as of this encounter: 87.2 kg (192 lb 4.8 oz). Last 5 Encounter BP Readings: Date: BP: 03/30/2024 92/60 03/20/2024 138/80 03/04/2024 138/82 02/18/2024 140/74 11/19/2023 112/60 Physical Exam Encounter Diagnosis ICD-10-CM 1. Acute cystitis without hematuria N30.00 URINE CULTURE URINALYSIS, WITH MICROSCOPIC CANCELED: URINALYSIS, WITH MICROSCOPIC CANCELED: URINE CULTURE Reviewed hospital records. Treatment as discussed 2. History of sepsis Z86.19 Clinically improved 3. Gas bloat syndrome K92.89 Noted work up per Dr. Caceres. Discussed ,management. Further evaluation and treatment as indicated 4. Urinary urgency R39.15 URINE CULTURE URINALYSIS, WITH MICROSCOPIC CANCELED: URINALYSIS, WITH MICROSCOPIC CANCELED: URINE CULTURE UTI or hyperglycemia can be causing. Follow up labs as indicated 5. Type 2 diabetes mellitus with hyperglycemia, without long-term current use of insulin (HCC) E11.65 Sugars improved to under 200s. Continue working on diet and exercise; adjust meds as indicated.Infection could be contributing to high sugars. 6. Other chronic back pain M54.9 G89.29 Right side from lower rib cage to iliac crest--could be related to lumbar spine issues since hurts to sit down,etc.Discussed management.Consider PT or pain mgmt Above issues addressed with patient. Patient involved in shared decision making for management of medical issues. History and medications reviewed. Epic updated as needed Refills and/or prescriptions taken care of and meds adjusted as indicated after reviewed history, exam and labs. Health Maintenance reviewed. Updated record and/or ordered tests as recorded. Encouraged on efforts at healthy diet and regular exercise and adequate sleep. Willam Estrada MD documented in this encounterUniversity [facility]als [facility]07-18-2024 NoteK[facility]07-18-[facility] History of Present illness Narrative* Chela Montgomery LPN - 03/26/2024 12:30 PM EDT Patient made appt for Saturday03/30/24 per patient request and declined sooner appointment until she is completed with antibiotic. Chela Montgomery LPN * Willam Estrada MD - 03/26/2024 12:01 PM EDT Does patient want to come in this afternoon or next ? 40 minute ?TCM * Alyssa Hathaway RN - 03/26/2024 11:06 AM EDT TRANSITIONAL CARE MANAGEMENT (TCM) COMMUNITY MONITORING PROGRAM Provider Action/FYI: Pt returns the TCM call : Pt states she is feeling the same since discharge . She states feeling anxious that she has ongoing chest heaviness , denies chest pain. Denies any fever, temp 98.6 today , pulse ox 98%RA Pt wearing BIPAP nightly. States doing Albuterol and atrovent breathing treatments every 4 hours and will need a refill todayif possible . C/o ongoing dull headaches , had in the hospital. Has an occasional productive cough with clear phlegm. Blood glucose 151 today, she has resumer her Metformin. Denies any further issues with flank pain, hematuria , dysuria. Taking Levaquin daily , has one more dose tomorrow. pt states still smoking 2 cigarettes daily. Pt anxious during the call about her recovery , offered reassurance. Pt states her daughter to come today and assist her with a shower as she has been so weak. Encouraged deep breathing exercises. Encouraged routine hydration , has Motrin for the headaches. PCP- Pt states she took HCTZ 50mg , Coreg , and Lisinopril around 8am today . States Atenolol was dc'd prior to dc from [facility]. Pt checked her BP , was 152/105 , then rechecked a few minutes later at 151/101. Advised pt will make her PCP 's office aware and she will recheck her BP this afternoon. 03/30 PCP f/u 05/07 Pulm f/u SUMMARY: Discharge Network Status: Mna-ie-Zbemnje (OON) Discharge Pt discharged from [facility] on 03/24/24. Admitted for: UTI, pneumonia , sepsis Copied from [employer]: Context: Gradual Onset Narrative Narrative: Patient presents secondary to weakness and dizziness. She was diagnosed with a UTI yesterday and placed on Macrobid. She states the night previous to this shehad a lightheaded weak episode. Last night she got up to go the bathroom and was so weak she could hard to get back to bed. She felt lightheaded and dizzy. This morning she had to lower herself to the ground. EMS reports she initially was 80/40 with a pulse ox of 84% on room air. Patient does have a reported history of COPD but does not wear home oxygen. She does wear BiPAP at night. She does report increased cough and congestion recently. When asked if she feltas if she had a fever she states maybe a couple degrees. She has had some shortness of breath but denies chest pain. No recent travel or leg swelling. No history of blood clots. TCM Home Visit Referral Source of Stratification: TCM HUB Hospital Admission Status: Discharged Readmission Risk Score: N/A Patient's zip code: N/A Is zip code within program service area: No Patient meets program referral criteria: No Patient does not qualify for High Risk TCM Home Visit program due to: Readmission Risk Score does not meet criteria Disposition: Patient does not qualify for [facility], will provide TCM outreach follow-up for 30-days Alyssa Hathaway RN March 26, 2024 11:08 AM Contact made with patient: Yes Hi my name is Alyssa Hathaway RN and I am calling from the [facility] on behalf of yourPCP, Willam Estrada MD I understand you were recently in the hospital so I am calling to check inwith you to ensure you are feeling well now that you're home. May I ask you a few questions relatedto your hospital stay and well-being? Yes Contact with patient post discharge, spoke to patient. Patient identified by name and . Do you feel your health is BETTER, WORSE, or the SAME since leaving the hospital? Same ACTION TAKEN: Patient indicated symptoms are better or same, no action required. Continue outreach. MEDICATIONS: Many patients have questions or concerns about their medications once they are home. Do you have any questions about taking your medications or which medication you should be on? Pt states Atenolol dc 'd by [employer] [facility]. Do you need any medication refills at this time, including any of the medications you might take only when needed? see seperate refill request ACTION TAKEN: No action required For RNs or Pharmacy completing outreach ONLY, was a medication review completed? Yes Partial review completed with pt SOCIAL: We would like to make sure you have what you need so that your basics needs are met - including your personal safety, food, housing and medications. Would you like to speak with a social work steam shovel runner to help give you support for any of these needs? No It can be normal to feel anxious or down during a time like this. Would you like to talk to a mental health professional about how you have been feeling? No ACTION TAKEN: No action taken DISCHARGE INTRUCTIONS: Your discharge instructions / After Visit Summary (AVS) are important in guiding you through the recovery process. Do you have any questions related to your discharge instructions? No Do you have all the necessary equipment and supplies at home? Yes ACTION TAKEN: No action required I would like to help you schedule a hospital follow-up virtual or telephone visit with your PCP. This is a great way for you to connect with your provider to ensure you have safely transitioned home.If you are agreeable, I will send your request to a metal building assembler who will contact and assist you with that appointment. This will give you an opportunity to ask any questions or address any concerns youmay have with your PCP. Inform the patient that if they have any questions or concerns prior to that appointment, to call their PCP's office right away. ACTION TAKEN: No action required, patient already has an appointment scheduled. Your doctor would like us to remind you of the recommendations regarding the coronavirus (Covid19) outbreak: Avoid public places as much as possible. Avoid close contact (within 6 feet) with others you don t live with, especially if they are sick. Stay home if you are sick. Wash your hands regularly for at least 20 seconds with soap and water. Wear a cloth mask in public places to help reduce community spread. Do not go to your Doctor s office unless instructed to do so. For any non- emergency symptoms, call your Doctor s office to get instructions on how to manage (we might recommend a telephone or virtualvisit). For emergency symptoms, proceed to Emergency Department as usual but inform them of cough and fever symptoms SONIA if present (or call on the way if possible). LISA Education Ordered -: No Alyssa Hathaway RN March 26, 2024 11:18 AM documented in this encounterUniversity Hospitals [facility]07-18-2024 Telephone encounter Note * Telephone Encounter - Willam Estrada MD - 03/26/2024 12:11 PM EDT The following approved medication requests have been transmitted electronically. Requested Prescriptions Pending Prescriptions Disp Refills albuterol (PROVENTIL) 2.5 mg /3 mL (0.083 %) nebulizer solution 50 mL 5 Sig: Use 3 mL via nebulizer every 4 hours as needed for wheezing/shortness of breath. ipratropium (ATROVENT) 0.02 % nebulizer solution 50 mL 5 Sig: Use 2.5 mL via nebulizer four times daily. Unit dose pack of 50 Willam Estrada MD [facility]07-18-2024 Miscellaneous Notes* Telephone Encounter - Willam Estrada MD - 03/26/2024 12:11 PM EDT The following approved medication requests have been transmitted electronically. Requested Prescriptions Pending Prescriptions Disp Refills albuterol (PROVENTIL) 2.5 mg /3 mL (0.083 %) nebulizer solution 50 mL 5 Sig: Use 3 mL via nebulizer every 4 hours as needed for wheezing/shortness of breath. ipratropium (ATROVENT) 0.02 % nebulizer solution 50 mL 5 Sig: Use 2.5 mL via nebulizer four times daily. Unit dose pack of 50 Willam Estrada MD * Telephone Encounter - Alyssa Hathaway RN - 03/26/2024 11:55 AM EDT Physician: Dr Estrada Call from patient requesting refill. Please E-Scribe Pt states she was advised by [employer] that her refills were and needed to request new rx 's Last [facility]: [facility]: Dr Estrada 03/30/24 Requested Prescriptions Pending Prescriptions Disp Refills albuterol (PROVENTIL) 2.5 mg /3 mL (0.083 %) nebulizer solution 50 mL 5 Sig: Use 3 mL via nebulizer every 4 hours as needed for wheezing/shortness of breath. ipratropium (ATROVENT) 0.02 % nebulizer solution 50 mL 5 Sig: Use 2.5 mL via nebulizer four times daily. Unit dose pack of 50 Pharmacy Name: [facility] Phone #: [phone] Alyssa Hathaway RN documented in this encounterUniversity Hospitals Beachwood [facility] Center07-18-2024 NoteHNO ID: [id number] Author: WILLAM ESTRADA MD Service: ? Author Type: Physician Type: Progress Notes Filed: 03/26/2024 12:03 Note Text: Does patient want to come in this afternoon or next ? 40 minute ?[facility]07-18-2024 Telephone encounter Note* Telephone Encounter - Alyssa Hathaway RN - 03/26/2024 11:55 AM EDT Physician: Dr Estrada Call from patient requesting refill. Please E-Scribe Pt states she was advised by [employer] that her refills were and needed to request new rx 's Last OV: 03/04/24 with [facility] OV: Dr Estrada 03/30/24 Requested Prescriptions Pending Prescriptions Disp Refills albuterol (PROVENTIL) 2.5 mg /3 mL (0.083 %) nebulizer solution 50 mL 5 Sig: Use 3 mL via nebulizer every 4 hours as needed for wheezing/shortness of breath. ipratropium (ATROVENT) 0.02 % nebulizer solution 50 mL 5 Sig: Use 2.5 mL via nebulizer four times daily. Unit dose pack of 50 Pharmacy Name: [facility] Phone #: [phone] Alyssa Hathaway RN [facility]07-18-2024 NoteK[facility]07-16-2024 [facility]07-15-2024 Telephone encounter Note* Telephone Encounter - Frieda Blake MA - 03/23/2024 9:32 AM EDT Left message for patient to return call. Frieda Blake MA [facility]07-15-2024 Miscellaneous Notes* Telephone Encounter - Frieda Blake MA - 03/23/2024 9:32 AM EDT Left message for patient to return call. Frieda Blake MA * Telephone Encounter - Deena Ivey APRN.CNP - 03/23/2024 9:01 AM EDT Urine culture reveals bacterial growth. ATB selected provides coverage. Please advise patient to complete, Follow up with PCP if sx persist. Please advise documented in this encounterUniversity Hospitals [facility] Center07-15-2024 Telephone encounter Note * Telephone Encounter - Deena Ivey APRN.CNP - 03/23/2024 9:01 AM EDT Urine culture reveals bacterial growth. ATB selected provides coverage. Please advise patient to complete, Follow up with PCP if sx persist. Please advise [facility]07-12-2024 Instructions* Patient Instructions* Deena Ivey APRN.CNP - 03/20/2024 4:06 PM EDT Images from the original note were not included. Urinary Problem-When to Seek Help? Symptoms of a urinary problem may lead to a bladder infection. Women are at greater risk of a urinary tract infection than are men. Most urinary tract infections in women are caused by bacteria and involve the lower urinary tract including the bladder and urethra. Symptoms: Pain or burning when passing urine, urgency, frequency, blood in the urine, difficult emptying your bladder, and lower abdominal fullness or pressure. Common Causes: Sexual intercourse, menopause, constipation, uncontrolled diabetes, dehydration and feminine products such as tampons, and kidney stones. When to Get Help: Seek medical attention if you get frequent bladder infections, urinary concerns such as leakage, blood in the urine or frequent need to urinate. You may be recommended to get help from a specialist, such as a urologist. Diagnosis & Treatment: Lab testing may include: urinalysis, and urine culture that can be collected in the lab or walk-in clinic. Most bladder infections can easily be treated. A physician, nurse practitioner or physician life enrichment assistant may treat with a short course of an antibiotic. Delaying treatment can lead to worsening symptoms, like a kidney infection. Self-Care: Avoid a full bladder, bubble baths, bath oils, food and beverages that may irritate the bladder such as caffeine. Avoid spermicide foam and diaphragms Void before and after sexual intercourse Wipe front to back after using the bathroom. Stay hydrated Stop Smoking Follow-up Care: Follow up testing is not needed in healthy young women if symptoms resolve. documented in this encounterUniversity Hospitals Beachwood [facility] Center07-12-2024 NoteKettering [facility]07-12-2024 History of Present illness Narrative* Deena Ivey APRN.CNP - 03/20/2024 4:00 PM EDT This note was created using Apprityriter. Rober De Santiago is a 63 year old female. 63 year old female with PMH DM, HTN, asthma, YARY, major depression presents for possible UTI. Acute onset 3 to 4 days ago +urgency +incontinence +burning +suprapubic X 2 bouts of incontinence at nighttime Denies recent coitus Denies recent catherization Denies abdominal pain Denies N/V/D Denies skin rash or lesions. The history is provided by the patient. No high school foreign language teacher was used. UTI This is a new problem. The current episode started more than 2 days ago. The problem occurs every urination. The problem has been gradually worsening. The quality of the pain is described as burning.The pain is at a severity of 6/10. The pain is moderate. There has been no fever. She is Not sexually active. Associated symptoms include frequency and urgency. Pertinent negatives include no chills,no sweats, no nausea, no vomiting, no discharge, no hematuria, no hesitancy, no possible and no flank pain. She has tried nothing for the symptoms. Her past medical history does not includekidney stones, single kidney, urological procedure, recurrent UTIs, urinary stasis or catheterization. PAST MEDICAL HISTORY Diagnosis Date Allergic rhinitis, cause unspecified 02/10/2007 Anxiety Arthritis Asthma 02/10/2007 Centrilobular emphysema ([facility]) Depression Psychiatrist managing (Dr. Bedolla) DM type 2 (diabetes mellitus, type 2) ([facility]) Essential hypertension 05/23/2006 Hemorrhage of gastrointestinal tract, unspecified 12/13/2011 Had bleeding hemorrhoids in 2011; normal colonoscopy Internal hemorrhoids without mention of complication 12/13/2011 Mixed hyperlipidemia 05/23/2006 Obesity (BMI 30.0-34.9) YARY (obstructive sleep apnea) Uses BiPAP occasionally Other nonspecific abnormal finding 05/23/2006 CK Elevation Snoring PAST SURGICAL HISTORY Procedure Laterality Date ADENOIDECTOMY PRIMARY <AGE 12 Adenoidectomy ANTERIOR COLPORRAPHY RPR CYSTOCELE W/CYSTO Cystocele repair APPENDECTOMY APPENDECTOMY HX ARTHRP KNE CONDYLE&PLATU MEDIAL&LAT COMPARTMENTS 07/10/2015 right BACK SURGERY HX COLONOSCOPY 02/22/2022 COLONOSCOPY FLX DX W/COLLJ SPEC WHEN PFRMD 12/13/2011 Colonoscopy repeat 10 years EGD W/O BRSH SPEC VARICIES INJ 02/22/2022 ESOPHAGOGASTRODUODENOSCOPY TRANSORAL DIAGNOSTIC 02/09/2016 EGD INCISE FINGER TENDON SHEATH Right 08/10/2021 Right ring trigger finger release JOINT REPLACEMENT HX LAPS ABD PRTM&OMENTUM DX W/WO SPEC BR/WA SPX Laparoscopy LAPS SURG CHOLECYSTECTOMY W/CHOLANGIOGRAPHY 10/07/2006 LIG/TRNSXJ FLP TUBE ABDL/VAG APPR UNI/BI Tubal ligation PAST SURGICAL HISTORY OF 06/22/2010 right knee arthroscopy- by Dr Dawson ([facility]) PAST SURGICAL HISTORY OF 04/27/2020 low back surgery at [facility];s/p L4 laminectomy, decompression of L4-5 canal stenosis with bilateral L4,L5 root foraminotomies TONSILLECTOMY PRIMARY/SECONDARY <AGE 12 Tonsillectomy VAGINAL HYSTERECTOMY UTERUS 250 GM/< Hysterectomy, vaginal for menorrhagia ALLERGIES Cephalosporins, Dilaudid [Hydromorphone (Bulk)], Dust Mites, Omnicef [Cefdinir], Paxil [Paroxetine], Penicillins, Prednisone, Prozac [Fluoxetine Hcl], Pseudoephedrine, and Vicodin [Hydrocodone-Acetaminophen] MEDICATIONS hydroCHLOROthiazide 50 mg tablet carvedilol (COREG) 6.25 mg tablet Take 6.25 mg by mouth two times a day with meals. BIPAP Initiate BiPAP @ 20/14 cm of water with heated humidification. Ti Max 1.0, Ti Min 0.3, trigger medium, cycle high. Mask (medium AirFit F10 full face mask or per patient preference) optional chin strap (if indicated) , filters, tubing, humidifier and lifetime supplies. gabapentin (NEURONTIN) 300 mg capsule Take 2 capsules by mouth two times a day for [address] (PROTONIX) 20 mg tablet Take 1 tablet by mouth two times a day. Take on empty stomach, 1/2 hr before meal. potassium chloride (K-TAB) 10 mEq tablet Take 1 tablet by mouth daily with breakfast. ALPRAZolam (XANAX) 0.5 mg tablet Take 1 tablet by mouth at bedtime as needed for up to 120 days. Donot start before December 08, 2023. glipiZIDE (GLUCOTROL) 5 mg tablet Take 1 tablet (5 mg) by mouth once daily. May take extra half to whole pill daily as needed for blood sugar over 200 fluticasone-vilanterol (BREO ELLIPTA) 200-25 mcg/dose inhaler Inhale 1 Inhalation as instructed once daily. albuterol HFA (VENTOLIN HFA) 90 mcg/actuation inhaler Inhale 2 Puffs as instructed every 4 hours asneeded. hewoar-aampbere-obkssns (CREON 24) 24,000-76,000 -120,000 unit delayed release capsule Take 1 capsule by mouth with meals. With snacks and meals pantoprazole DR (PROTONIX) 40 mg tablet Take 40 mg by mouth two times a day. lisinopril (ZESTRIL) 20 mg tablet Take 1 tablet by mouth two times a day. blood sugar diagnostic (TRUE METRIX GLUCOSE TEST STRIP) test strip Test blood sugars twice a day DX: E11.65 Insulin: No Use as instructed Nebulizer and Compressor For Neb Use for albuterol and ipratropium nebulizer treatments every 4 hours as needed ibuprofen (MOTRIN) 600 mg tablet Take 1 tablet by mouth every 12 hours. busPIRone (BUSPAR) 15 mg tablet Take 0.5 tablets by mouth twice daily. furosemide (LASIX) 20 mg tablet Take 1 tablet by mouth once daily. fluticasone (FLONASE) 50 mcg/actuation nasal spray Use 2 Sprays in each nostril once daily. Rinse mouth after use. gemfibrozil (LOPID) 600 mg tablet Take 1 tablet by mouth twice daily. metFORMIN ER (GLUCOPHAGE XR) 500 mg 24 hr tablet Take 1 tablet by mouth twice daily before meals. sertraline (ZOLOFT) 100 mg tablet Take 2 tablets by mouth once daily. traZODone (DESYREL) 100 mg tablet Take 1 tablet by mouth daily at bedtime. ursodiol (ACTIGALL) 300 mg capsule Take 300 mg by mouth twice daily. albuterol (PROVENTIL) 2.5 mg /3 mL (0.083 %) nebulizer solution Use 3 mL via nebulizer every 4 hours as needed for wheezing/shortness of breath. ipratropium (ATROVENT) 0.02 % nebulizer solution Use 2.5 mL via nebulizer four times daily. Unit dose pack of 50 (Patient taking differently: Use 0.5 mg via nebulizer four times daily. Unit dose packof 50 As needed) Vitamin E, dl, acetate, (VITAMIN E) 400 unit capsule Take 800 Units by mouth once daily. Lancets lancets Test blood sugar(s) 2 times daily. Dx: Type 2 DM - Uncontrolled E11.65 Insulin: No ketoconazole (NIZORAL) 2 % cream Apply 1 application to affected area once daily. (Patient taking differently: Apply 1 application to affected area once daily. As needed) Blood-Glucose Meter monitoring kit Insurance covered or per patient choice. Test blood sugar twice daily plus as needed for symptoms of blood sugars being too high or low. Dx: Type 2 DM - Uncontrolled E11.65 Insulin:No Nebulizer NEBULIZER FOR HOME USE. DX: J45.42 nitrofurantoin monohydrate and macrocrystal (MACROBID) 100 mg capsule Take 1 capsule by mouth two times a day for 5 days. phenazopyridine (PYRIDIUM) 200 mg tablet Take 1 tablet by mouth three times a day as needed. atenolol (TENORMIN) 50 mg tablet Take 1 tablet by mouth once daily. May also take 0.5-1 tablets once daily as needed (for blood pressure over 180/120). (Patient not taking: Reported on 03/20/2024) FAMILY HISTORY Problem Relation Age of Onset Hypertension Mother history of glaucoma Cervical Cancer Mother Asthma Mother Heart Father CO x 2 Cancer Father Lung, metastatic to bone, age 77 other (aortic aneurysm) Father 50 Colon Polyps Sister Thyroid Sister Hypothyroidism Thyroid Sister Cancer Sister Lung, LLL. Resected. No Known Problems Daughter No Known Problems Son Social History Tobacco Use Smoking status: Every Day Packs/day: 1.50 Years: 36.00 Additional pack years: 0.00 Total pack years: 54.00 Types: Cigarettes Smokeless tobacco: Never Tobacco comments: Working on smoking cessation. Trying every day to quit but not happening yet. Still working--1PPD (April 03, 2023) Vaping Use Vaping Use: Never used Substance Use Topics Alcohol use: No Drug use: No Review of Systems Constitutional: Negative for chills, diaphoresis, fatigue and fever. Respiratory: Negative for apnea, cough, choking, chest tightness and shortness of breath. Cardiovascular: Negative for chest pain, palpitations and leg swelling. Gastrointestinal: Negative for abdominal pain, diarrhea, nausea and vomiting. Genitourinary: Positive for dysuria, frequency and urgency. Negative for flank pain, hematuria and hesitancy. Musculoskeletal: Negative for arthralgias, back pain, gait problem and joint swelling. Skin: Negative for color change, pallor and rash. Allergic/Immunologic: Negative for environmental allergies, food allergies and immunocompromised state. Neurological: Negative for dizziness, facial asymmetry, light-headedness, numbness and headaches. Hematological: Negative for adenopathy. Does not bruise/bleed easily. Psychiatric/Behavioral: Negative for agitation and behavioral problems. Objective BP 138/80 Pulse 108 Temp 36.8 C (98.3 F) Resp 18 Wt 87 kg (191 lb 12.8 oz) SpO2 97% BMI30.96 kg/m Physical Exam Vitals and nursing note reviewed. Constitutional: General: She is not in acute distress. Appearance: Normal appearance. She is normal weight. She is not ill-appearing, toxic-appearing or diaphoretic. HENT: Head: Normocephalic and atraumatic. Right Ear: Ear canal and external ear normal. Left Ear: Ear canal and external ear normal. Nose: Nose normal. No congestion or rhinorrhea. Mouth/Throat: Mouth: Mucous membranes are moist. Pharynx: No oropharyngeal exudate or posterior oropharyngeal erythema. Eyes: General: Right eye: No discharge. Left eye: No discharge. Extraocular Movements: Extraocular movements intact. Conjunctiva/sclera: Conjunctivae normal. Pupils: Pupils are equal, round, and reactive to light. Cardiovascular: Rate and Rhythm: Normal rate and regular rhythm. Pulses: Normal pulses. Heart sounds: Normal heart sounds. No murmur heard. No friction rub. Pulmonary: Effort: Pulmonary effort is normal. No respiratory distress. Breath sounds: Normal breath sounds. No stridor. No wheezing, rhonchi or rales. Chest: Chest wall: No tenderness. Abdominal: General: Abdomen is flat. There is no distension. Palpations: Abdomen is soft. There is no mass. Tenderness: There is no abdominal tenderness. There is no right CVA tenderness, left CVA tenderness, guarding or rebound. Hernia: No hernia is present. Musculoskeletal: General: No swelling, tenderness, deformity or signs of injury. Normal range of motion. Cervical back: Normal range of motion and neck supple. No rigidity. Right lower leg: No edema. Left lower leg: No edema. Lymphadenopathy: Cervical: No cervical adenopathy. Skin: General: Skin is warm and dry. Capillary Refill: Capillary refill takes less than 2 seconds. Coloration: Skin is not jaundiced or pale. Findings: No bruising, erythema, lesion or rash. Neurological: General: No focal deficit present. Mental Status: She is alert and oriented to person, place, and time. Cranial Nerves: No cranial nerve deficit. Sensory: No sensory deficit. Motor: No weakness. Coordination: Coordination normal. Gait: Gait normal. Psychiatric: Mood and Affect: Mood normal. Behavior: Behavior normal. Thought Content: Thought content normal. Judgment: Judgment normal. Assessment and Plan ASSESSMENT/PLAN: 1. Cystitis - ICD9: 595.9, ICD10: N30.90 X few days No red flags acute - UA positive for [place] esterase and hematuria - Send urine for culture - Begin treatment with Macrobid 100 mg BID for 5 days RX Pyridium - Patient education for prevention given - UA DIP, URINE (POC) - URINE CULTURE Deena Ivey APRN.PARTS DEPARTMENT MANAGER documented in this encounterUniversity [facility]als [facility]07-12-[facility]24 Telephone encounter Note * Telephone Encounter - Nat Malik LPN - 03/20/2024 3:43 PM EDT Patient calling she is having UTI symptoms, pelvic pain, had been incontinent of urine. Aware no appt available this afternoon with PCP or BRIMMING MACHINE OPERATOR, advised to go to express care for evaluation. Patient said she would go to express care. [facility]07-12-[facility]24 Miscellaneous Notes* Telephone Encounter - Nat Malik LPN - 03/20/2024 3:43 PM EDT Patient calling she is having UTI symptoms, pelvic pain, had been incontinent of urine. Aware no appt available this afternoon with PCP or BRIMMING MACHINE OPERATOR, advised to go to express care for evaluation. Patient said she would go to express care. documented in this encounterUniversity Hospitals [facility]06-26-2024 History of Present illness Narrative* Aurora Ortiz RT(R) - 03/04/2024 3:00 PM EDT Radiology Service Progress Note PATIENT NAME: Garland De Santiago DATE OF SERVICE: March 04, 2024 TIME: 2:53 PM PATIENT IDENTITY VERIFICATION COMPLETED USING TWO (2) IDENTIFIERS: Name and Date of confirmedby patient verbally. FALL SCREENING: Has the patient had 2 falls in the last year or 1 fall with injury or currently using an Ambulatory Assistive Device (Walker, Cane, Wheelchair, Crutches, etc.)? No PATIENT GENDER DATA: Female. status: : No status: NO. PATIENT RELEVANT IMPLANT DATA REVIEWED: Not Applicable PATIENT PRESENTS WITH AN IMPLANTABLE OR ATTACHED CHERRY PICKER OPERATOR: No RADIOLOGY DEPARTMENT: General X-ray: Exam(s) Completed: Chest X-Ray Upper Extremity X-Ray(s): Elbow, right PERIPHERAL IV DATA: Not applicable SIGNED BY: RT Dale(R) March 04, 2024 2:53 PM documented in this encounterUniversity Hospitals [facility]06-26-2024 History of Present illness Narrative* Felipe Jolly APRN.PARTS DEPARTMENT MANAGER - 03/04/2024 2:38 PM EDT Subjective HPI Nontoxic-appearing female presents urgent care chief complaint cough body aches chills chest congestion low-grade fever. Has a low-grade fever last few days. That has improved. No known sick contacts. States cough is worse. Has became productive. Does have a history of COPD. Denies any high fevers nausea vomiting abdominal pain chest pain shortness of breath pleuritic pain hemoptysis change in bowel or bladder habits. Additionally did hit her right elbow a 1.5 week to 2 weeks ago. Has had some swelling since. Decreased range of motion due to tenderness. No weakness. No erythema. Presents today for evaluation. .Patient presents with: Cough: Cough, bodyaches, chest congestion, fatigue and fever x 4 days PAST MEDICAL HISTORY Diagnosis Date Allergic rhinitis, cause unspecified 02/10/2007 Anxiety Arthritis Asthma 02/10/2007 Centrilobular emphysema (HCC) Depression Psychiatrist managing (Dr. Bedolla) DM type 2 (diabetes mellitus, type 2) (HCC) Essential hypertension 05/23/2006 Hemorrhage of gastrointestinal tract, unspecified 12/13/2011 Had bleeding hemorrhoids in 2011; normal colonoscopy Internal hemorrhoids without mention of complication 12/13/2011 Mixed hyperlipidemia 05/23/2006 Obesity (BMI 30.0-34.9) YARY (obstructive sleep apnea) Uses BiPAP occasionally Other nonspecific abnormal finding 05/23/2006 CK Elevation Snoring PAST SURGICAL HISTORY Procedure Laterality Date ADENOIDECTOMY PRIMARY <AGE 12 Adenoidectomy ANTERIOR COLPORRAPHY RPR CYSTOCELE W/CYSTO Cystocele repair APPENDECTOMY APPENDECTOMY HX ARTHRP KNE CONDYLE&PLATU MEDIAL&LAT COMPARTMENTS 07/10/2015 right BACK SURGERY HX COLONOSCOPY 02/22/2022 COLONOSCOPY FLX DX W/COLLJ SPEC WHEN PFRMD 12/13/2011 Colonoscopy repeat 10 years EGD W/O BRSH SPEC VARICIES INJ 02/22/2022 ESOPHAGOGASTRODUODENOSCOPY TRANSORAL DIAGNOSTIC 02/09/2016 EGD INCISE FINGER TENDON SHEATH Right 08/10/2021 Right ring trigger finger release JOINT REPLACEMENT HX LAPS ABD PRTM&OMENTUM DX W/WO SPEC BR/WA SPX Laparoscopy LAPS SURG CHOLECYSTECTOMY W/CHOLANGIOGRAPHY 10/07/2006 LIG/TRNSXJ FLP TUBE ABDL/VAG APPR UNI/BI Tubal ligation PAST SURGICAL HISTORY OF 06/22/2010 right knee arthroscopy- by Dr Dawson ([facility]) PAST SURGICAL HISTORY OF 04/27/2020 low back surgery at [facility];s/p L4 laminectomy, decompression of L4-5 canal stenosis with bilateral L4,L5 root foraminotomies TONSILLECTOMY PRIMARY/SECONDARY <AGE 12 Tonsillectomy VAGINAL HYSTERECTOMY UTERUS 250 GM/< Hysterectomy, vaginal for menorrhagia ALLERGIES Cephalosporins, Dilaudid [Hydromorphone (Bulk)], Dust Mites, Omnicef [Cefdinir], Paxil [Paroxetine], Penicillins, Prednisone, Prozac [Fluoxetine Hcl], Pseudoephedrine, and Vicodin [Hydrocodone-Acetaminophen] MEDICATIONS hydroCHLOROthiazide 50 mg tablet carvedilol (COREG) 6.25 mg tablet Take 6.25 mg by mouth two times a day with meals. BIPAP Initiate BiPAP @ 20/14 cm of water with heated humidification. Ti Max 1.0, Ti Min 0.3, trigger medium, cycle high. Mask (medium AirFit F10 full face mask or per patient preference) optional chin strap (if indicated) , filters, tubing, humidifier and lifetime supplies. gabapentin (NEURONTIN) 300 mg capsule Take 2 capsules by mouth two times a day for [address] (PROTONIX) 20 mg tablet Take 1 tablet by mouth two times a day. Take on empty stomach, 1/2 hr before meal. potassium chloride (K-TAB) 10 mEq tablet Take 1 tablet by mouth daily with breakfast. ALPRAZolam (XANAX) 0.5 mg tablet Take 1 tablet by mouth at bedtime as needed for up to 120 days. Donot start before December 08, 2023. glipiZIDE (GLUCOTROL) 5 mg tablet Take 1 tablet (5 mg) by mouth once daily. May take extra half to whole pill daily as needed for blood sugar over 200 fluticasone-vilanterol (BREO ELLIPTA) 200-25 mcg/dose inhaler Inhale 1 Inhalation as instructed once daily. albuterol HFA (VENTOLIN HFA) 90 mcg/actuation inhaler Inhale 2 Puffs as instructed every 4 hours asneeded. csjkup-xrffzqya-twaxjck (CREON 24) 24,000-76,000 -120,000 unit delayed release capsule Take 1 capsule by mouth with meals. With snacks and meals pantoprazole DR (PROTONIX) 40 mg tablet Take 40 mg by mouth two times a day. lisinopril (ZESTRIL) 20 mg tablet Take 1 tablet by mouth two times a day. blood sugar diagnostic (TRUE METRIX GLUCOSE TEST STRIP) test strip Test blood sugars twice a day DX: E11.65 Insulin: No Use as instructed Nebulizer and Compressor For Neb Use for albuterol and ipratropium nebulizer treatments every 4 hours as needed ibuprofen (MOTRIN) 600 mg tablet Take 1 tablet by mouth every 12 hours. busPIRone (BUSPAR) 15 mg tablet Take 0.5 tablets by mouth twice daily. fluticasone (FLONASE) 50 mcg/actuation nasal spray Use 2 Sprays in each nostril once daily. Rinse mouth after use. gemfibrozil (LOPID) 600 mg tablet Take 1 tablet by mouth twice daily. metFORMIN ER (GLUCOPHAGE XR) 500 mg 24 hr tablet Take 1 tablet by mouth twice daily before meals. sertraline (ZOLOFT) 100 mg tablet Take 2 tablets by mouth once daily. traZODone (DESYREL) 100 mg tablet Take 1 tablet by mouth daily at bedtime. ursodiol (ACTIGALL) 300 mg capsule Take 300 mg by mouth twice daily. albuterol (PROVENTIL) 2.5 mg /3 mL (0.083 %) nebulizer solution Use 3 mL via nebulizer every 4 hours as needed for wheezing/shortness of breath. ipratropium (ATROVENT) 0.02 % nebulizer solution Use 2.5 mL via nebulizer four times daily. Unit dose pack of 50 (Patient taking differently: Use 0.5 mg via nebulizer four times daily. Unit dose packof 50 As needed) Vitamin E, dl, acetate, (VITAMIN E) 400 unit capsule Take 800 Units by mouth once daily. Lancets lancets Test blood sugar(s) 2 times daily. Dx: Type 2 DM - Uncontrolled E11.65 Insulin: No ketoconazole (NIZORAL) 2 % cream Apply 1 application to affected area once daily. (Patient taking differently: Apply 1 application to affected area once daily. As needed) Blood-Glucose Meter monitoring kit Insurance covered or per patient choice. Test blood sugar twice daily plus as needed for symptoms of blood sugars being too high or low. Dx: Type 2 DM - Uncontrolled E11.65 Insulin:No Nebulizer NEBULIZER FOR HOME USE. DX: J45.42 atenolol (TENORMIN) 50 mg tablet Take 1 tablet by mouth once daily. May also take 0.5-1 tablets once daily as needed (for blood pressure over 180/120). (Patient not taking: Reported on 03/04/2024) furosemide (LASIX) 20 mg tablet Take 1 tablet by mouth once daily. (Patient not taking: Reported on03/04/2024) FAMILY HISTORY Problem Relation Age of Onset Hypertension Mother history of glaucoma Cervical Cancer Mother Asthma Mother Heart Father CO x 2 Cancer Father Lung, metastatic to bone, age 77 other (aortic aneurysm) Father 50 Colon Polyps Sister Thyroid Sister Hypothyroidism Thyroid Sister Cancer Sister Lung, LLL. Resected. No Known Problems Daughter No Known Problems Son Social History Tobacco Use Smoking status: Every Day Packs/day: 1.50 Years: 36.00 Additional pack years: 0.00 Total pack years: 54.00 Types: Cigarettes Smokeless tobacco: Never Tobacco comments: Working on smoking cessation. Trying every day to quit but not happening yet. Still working--1PPD (April 03, 2023) Vaping Use Vaping Use: Never used Substance Use Topics Alcohol use: No Drug use: No BP 138/82 Pulse 103 Temp 36.6 C (97.9 F) (Tympanic) Resp 18 Wt 87.8 kg (193 lb 9 oz) HcO671% BMI 31.24 kg/m Hr 90 Review of Systems Constitutional: Positive for chills, fever and malaise/fatigue. HENT: Positive for congestion and sore throat. Negative for ear discharge, ear pain and sinus pain. Eyes: Negative for blurred vision, pain, discharge and redness. Respiratory: Positive for cough. Negative for hemoptysis, sputum production, shortness of breath, wheezing and stridor. Cardiovascular: Negative for chest pain. Gastrointestinal: Negative for abdominal pain, diarrhea, nausea and vomiting. Musculoskeletal: Positive for joint pain and myalgias. Skin: Negative for itching and rash. Neurological: Positive for headaches. Negative for dizziness. Objective Physical Exam Constitutional: General: She is not in acute distress. Appearance: She is not diaphoretic. HENT: Head: Normocephalic. Jaw: No trismus, tenderness, swelling or pain on movement. Nose: Congestion present. Mouth/Throat: Mouth: Mucous membranes are moist. Pharynx: Oropharynx is clear. Uvula midline. No pharyngeal swelling, oropharyngeal exudate, posterior oropharyngeal erythema or uvula swelling. Eyes: Conjunctiva/sclera: Conjunctivae normal. Pupils: Pupils are equal, round, and reactive to light. Cardiovascular: Rate and Rhythm: Normal rate and regular rhythm. Heart sounds: Normal heart sounds. Pulmonary: Effort: Pulmonary effort is normal. No tachypnea, accessory muscle usage or respiratory distress. Breath sounds: Normal breath sounds. No stridor. No wheezing, rhonchi or rales. Abdominal: General: There is no distension. Palpations: Abdomen is soft. Tenderness: There is no abdominal tenderness. There is no guarding or rebound. Musculoskeletal: Right elbow: Swelling present. No deformity, effusion or lacerations. Normal range of motion. Tenderness present in radial head. Cervical back: Normal range of motion and neck supple. No edema, erythema, rigidity or tenderness. No pain with movement. Normal range of motion. Comments: Mild edema noted right elbow. No erythema. Full range of motion. Lymphadenopathy: Cervical: No cervical adenopathy. Skin: General: Skin is warm and dry. Neurological: Mental Status: She is alert and oriented to person, place, and time. ASSESSMENT/PLAN: 1. Acute cough - ICD9: 786.2, ICD10: R05.1 (primary diagnosis) - XR CHEST 2V FRONTAL/LAT - COVID & INFLUENZA A/B & RSV NAAT, ROUTINE 2. Elbow swelling, right - ICD9: 719.02, ICD10: M25.421 - XR ELBOW SPECIAL VIEWS AP/LAT/OTHER RIGHT 3. Suspected COVID-19 virus infection - ICD9: V01.79, ICD10: Z20.822 - COVID & INFLUENZA A/B & RSV NAAT, ROUTINE IMPRESSION: 1. No acute osseous findings or joint effusion 2. Swelling of ulnar olecranon bursal region 3. Distal humeral hypertrophy pattern of chronic medial and lateral epicondylosis IMPRESSION: Acute and/or chronic probable bronchitis. Peribronchial cuffing similar to recent CT Kyphoscoliosis more pronounced on nonweightbearing radiography than recumbent CT, incidentally Treatment for acute COPD exacerbation with doxycycline. Treat for bursitis right elbow supportively. Follow-up with PCP 3 to 5 days reevaluation. Patient was educated on supportive therapies. Patientwas instructed to immediately proceed to emergency room for any new, worsening, or symptoms lastinglonger than anticipated. The patient's clinical presentation is otherwise unremarkable at this time. Based on exam and clinical finding, the patient is stable for discharge. Plan of care was discussed with patient. Patient verbalizes understanding and agrees to plan of care. This note was generatedusing Geodruid software. It may contain errors in wording, punctuation, or spelling. Felipe Jolly APRN.PARTS DEPARTMENT MANAGER documented in this encounterUniversity Hospitals [facility]06-11-2024 History of Present illness Narrative* Aurora Ortiz RT(R) - 02/18/2024 4:00 PM EDT Radiology Service Progress Note PATIENT NAME: Garland De Santiago DATE OF SERVICE: February 18, 2024 TIME: 3:43 PM PATIENT IDENTITY VERIFICATION COMPLETED USING TWO (2) IDENTIFIERS: Name and Date of confirmedby patient verbally. FALL SCREENING: Has the patient had 2 falls in the last year or 1 fall with injury or currently using an Ambulatory Assistive Device (Walker, Cane, Wheelchair, Crutches, etc.)? No PATIENT GENDER DATA: Female. status: : No status: NO. PATIENT RELEVANT IMPLANT DATA REVIEWED: Not Applicable PATIENT PRESENTS WITH AN IMPLANTABLE OR ATTACHED CHERRY PICKER OPERATOR: No RADIOLOGY DEPARTMENT: General X-ray: Exam(s) Completed: Lower Extremity X- Ray(s): Foot, Left PERIPHERAL IV DATA: Not applicable SIGNED BY: RT Dale(R) February 18, 2024 3:43 PM documented in this encounterUniversity Hospitals [facility]06-11-2024 History of Present illness Narrative* Allegra Berumen APRN.PARTS DEPARTMENT MANAGER - 02/18/2024 3:30 PM EDT SUBJECTIVE Garland De Santiago is a 63 year old female here today for a check up on her medical problems. Chief Complaint Patient presents with: Recheck: of CPAP use HPI Garland De Santiago is a 63 year old female. She is an established patient of Willam Estrada MD. She is here today for a follow up on sleep apnea. Reviewed her recent compliance report. IPAP 20, EPAP14. Autopap therapy. Sleeping okay. Compliant nightly. Benefiting from this. Feels like use of pap therapy is helpful. She did recently have an injury to her left pinky toe. Several weeks ago, has been walking on it. She was in her home and hit the toe against her hardwood floor, the toe went out from her foot to theside. IT was painful and bruised. Still painful. Her medications were reviewed today and her list is now up to date. Medications Current Outpatient Medications Medication Sig gabapentin (NEURONTIN) 300 mg capsule Take 2 capsules by mouth two times a day for [address] (PROTONIX) 20 mg tablet Take 1 tablet by mouth two times a day. Take on empty stomach, 1/2 hr before meal. potassium chloride (K-TAB) 10 mEq tablet Take 1 tablet by mouth daily with breakfast. ALPRAZolam (XANAX) 0.5 mg tablet Take 1 tablet by mouth at bedtime as needed for up to 120 days. Donot start before December 08, 2023. glipiZIDE (GLUCOTROL) 5 mg tablet Take 1 tablet (5 mg) by mouth once daily. May take extra half to whole pill daily as needed for blood sugar over 200 fluticasone-vilanterol (BREO ELLIPTA) 200-25 mcg/dose inhaler Inhale 1 Inhalation as instructed once daily. albuterol HFA (VENTOLIN HFA) 90 mcg/actuation inhaler Inhale 2 Puffs as instructed every 4 hours asneeded. lisinopril (ZESTRIL) 20 mg tablet Take 1 tablet by mouth two times a day. atenolol (TENORMIN) 50 mg tablet Take 1 tablet by mouth once daily. May also take 0.5-1 tablets once daily as needed (for blood pressure over 180/120). ibuprofen (MOTRIN) 600 mg tablet Take 1 tablet by mouth every 12 hours. busPIRone (BUSPAR) 15 mg tablet Take 0.5 tablets by mouth twice daily. furosemide (LASIX) 20 mg tablet Take 1 tablet by mouth once daily. fluticasone (FLONASE) 50 mcg/actuation nasal spray Use 2 Sprays in each nostril once daily. Rinse mouth after use. gemfibrozil (LOPID) 600 mg tablet Take 1 tablet by mouth twice daily. metFORMIN ER (GLUCOPHAGE XR) 500 mg 24 hr tablet Take 1 tablet by mouth twice daily before meals. sertraline (ZOLOFT) 100 mg tablet Take 2 tablets by mouth once daily. traZODone (DESYREL) 100 mg tablet Take 1 tablet by mouth daily at bedtime. ursodiol (ACTIGALL) 300 mg capsule Take 300 mg by mouth twice daily. albuterol (PROVENTIL) 2.5 mg /3 mL (0.083 %) nebulizer solution Use 3 mL via nebulizer every 4 hours as needed for wheezing/shortness of breath. ipratropium (ATROVENT) 0.02 % nebulizer solution Use 2.5 mL via nebulizer four times daily. Unit dose pack of 50 (Patient taking differently: Use 0.5 mg via nebulizer four times daily. Unit dose packof 50 As needed) Vitamin E, dl, acetate, (VITAMIN E) 400 unit capsule Take 800 Units by mouth once daily. ketoconazole (NIZORAL) 2 % cream Apply 1 application to affected area once daily. (Patient taking differently: Apply 1 application to affected area once daily. As needed) BIPAP Initiate BiPAP @ 20/14 cm of water with heated humidification. Ti Max 1.0, Ti Min 0.3, trigger medium, cycle high. Mask (medium AirFit F10 full face mask or per patient preference) optional chin strap (if indicated) , filters, tubing, humidifier and lifetime supplies. [id number]-mzmdtegp-wqdmbzb (CREON 24) 24,000-76,000 -120,000 unit delayed release capsule Take 1 capsule by mouth with meals. With snacks and meals (Patient not taking: Reported on 02/18/2024) pantoprazole DR (PROTONIX) 40 mg tablet Take 40 mg by mouth two times a day. blood sugar diagnostic (TRUE METRIX GLUCOSE TEST STRIP) test strip Test blood sugars twice a day DX: E11.65 Insulin: No Use as instructed Nebulizer and Compressor For Neb Use for albuterol and ipratropium nebulizer treatments every 4 hours as needed Lancets lancets Test blood sugar(s) 2 times daily. Dx: Type 2 DM - Uncontrolled E11.65 Insulin: No Blood-Glucose Meter monitoring kit Insurance covered or per patient choice. Test blood sugar twice daily plus as needed for symptoms of blood sugars being too high or low. Dx: Type 2 DM - Uncontrolled E11.65 Insulin:No Nebulizer NEBULIZER FOR HOME USE. DX: J45.42 No current facility-administered medications for this visit. ALLERGIES Allergen Reactions Cephalosporins Rash Dilaudid [Hydromorp* Mental Status Change Dust Mites Omnicef [Cefdinir] Hives Paxil [Paroxetine] Intolerance excessive sweating Penicillins Hives, Other: See Comments Any medication with penicillin in it. Had been given amoxicillin in 2011 and had reaction Given test dose of 2cc's on 08/17/2019 causing sever flushing along with hypotension Prednisone Intolerance Elevated BS, ER Prozac [Fluoxetine * Mental Status Change, Diarrhea Pseudoephedrine Intolerance Heart racing Vicodin [Hydrocodon* GI Upset ACTIVE PROBLEM LIST Headache, Unspecified Headache Type - 09/11/2023 Congestion of Respiratory Tract - 09/11/2023 Severe Persistent Asthma - 08/18/2023 S/P Lumbar Laminectomy - 04/10/2022 Chronic Midline Low Back Pain - 04/10/2022 Gait Instability - 04/10/2022 Comment: feels wobbly when walking Nicotine use disorder, F17.2 - 04/28/2020 Lumbar Spinal Stenosis - 04/27/2020 Yary (Obstructive Sleep Apnea) Comment: Uses BiPAP Anxiety Recurrent Major Depressive Disorder, in Remission ([facility]) Type 2 Diabetes Mellitus With Diabetic Neuropathy, Without Long-Term Current Use of Insulin ([facility]) -02/01/2017 Obesity (Bmi 30.0-34.9) Rhinitis - 10/30/2013 Asthma - 02/10/2007 Pure Hyperglyceridemia - 02/10/2007 Essential Hypertension - 05/23/2006 Elevated Ck - 05/23/2006 Comment: CK Elevation Social History Tobacco Use Smoking status: Every Day Packs/day: 1.50 Years: 36.00 Additional pack years: 0.00 Total pack years: 54.00 Types: Cigarettes Smokeless tobacco: Never Tobacco comments: Working on smoking cessation. Trying every day to quit but not happening yet. Still working--1PPD (April 03, 2023) Vaping Use Vaping Use: Never used Substance Use Topics Alcohol use: No Drug use: No Review of Systems Respiratory: Negative. Cardiovascular: Negative. OBJECTIVE BP 140/74 Pulse 75 Wt 197 lb (89.4kg) SpO2 98% Physical Exam Vitals and nursing note reviewed. Constitutional: General: She is awake. She is not in acute distress. Appearance: Normal appearance. She is well-developed and well-groomed. She is not ill-appearing, toxic-appearing or diaphoretic. HENT: Head: Normocephalic. Right Ear: External ear normal. Left Ear: External ear normal. Nose: Nose normal. Eyes: General: Vision grossly intact. Conjunctiva/sclera: Conjunctivae normal. Pupils: Pupils are equal, round, and reactive to light. Neck: Vascular: No JVD. Trachea: Trachea normal. Cardiovascular: Rate and Rhythm: Normal rate and regular rhythm. Pulses: Normal pulses. Heart sounds: Normal heart sounds. No murmur heard. Pulmonary: Effort: Pulmonary effort is normal. No accessory muscle usage, prolonged expiration or respiratory distress. Breath sounds: Normal breath sounds. Musculoskeletal: Cervical back: Neck supple. Skin: General: Skin is warm and dry. Capillary Refill: Capillary refill takes less than 2 seconds. Neurological: General: No focal deficit present. Mental Status: She is alert and oriented to person, place, and time. Mental status is at baseline. Psychiatric: Attention and Perception: Attention and perception normal. Mood and Affect: Mood and affect normal. Speech: Speech normal. Behavior: Behavior normal. Behavior is cooperative. Thought Content: Thought content normal. Cognition and Memory: Cognition and memory normal. Judgment: Judgment normal. ASSESSMENT/PLAN: 1. YARY (obstructive sleep apnea) - ICD9: 327.23, ICD10: G47.33 (primary diagnosis) Compliant with therapy, benefiting from therapy, pap therapy should be continued. 2. Injury of toe on left foot, initial encounter - ICD9: 959.7, ICD10: S99.922A Check xray to evaluate for any dislocation or displaced fracture. - XR FOOT GENERAL 3V AP/LAT/OBL LEFT Portions of this note have been entered by ancillary staff. I have reviewed and when necessary edited, so that they are an adequate record of my encounter with this patient Please note that parts of this document were created using voice recognition software and therefore may contain grammatical errors. Patient verbalizes understanding of instructions from today's visit and in agreement with treatmentplan. Questions answered. Agrees to call the office if questions, concerns of issues with acute symptoms not improving or if they worsen. See diagnoses and orders for additional plan(s). Allergies and medications were reviewed, list was updated, and refills given if needed. Past medical, surgical, social, and family history reviewed and updated as appropriate. Encouraged proper diet & exercise as well as compliance with taking medications. Age- appropriate health preventative measures were discussed. Return if symptoms worsen or fail to improve, for Keep next scheduled appointment.. Allegra Berumen APRN-HEIDY documented in this encounterUniversity Hospitals [facility]05-17-2024 Telephone encounter Note * Telephone Encounter - Willam Estrada MD - 01/24/2024 12:53 PM EDT Will discuss at her appointment next month then whether should get sooner. [facility]05-17-2024 Miscellaneous Notes* Telephone Encounter - Willam Estrada MD - 01/24/2024 12:53 PM EDT Will discuss at her appointment next month then whether should get sooner. * Telephone Encounter - Keshia Briseno LPN - 01/23/2024 11:57 AM EDT Patient notified of providers message and verbalized understanding. Patient states that cardiology states they will be having her do labs prior to her appointment with them in March. * Telephone Encounter - Willam Estrada MD - 01/22/2024 1:11 PM EDT Reviewed report from echo and stress test. Looked good. Okay to make the changes. Carvedilol is a good med. They might be trying to avoid getting her too dehydrated with furosemide, so switched her to HCTZ. She can stop the potassium pill for now--HCTZ does not cause as much potassium loss, so might not need it. Do not discard the potassium since sometimes patients need to take it with the HCTZ. Not sure why the different warnings on the carvedilol and HCTZ, but does not need to add bananas (too starchy anyway). See whether [facility] or aligner typewriter will be checking labs through their lab or just get through [facility] when due.for checking next month. * Telephone Encounter - Nat Malik LPN - 01/20/2024 4:19 PM EDT Patient calling she had ECHO and NM stress test done and was told both were good from Dr Cruz. Then she got call from [facility] and was told stopping the Atenolol and Furosemide. And starting Carvedilol 6.25 mg one twice daily and HCTZ 50 mg once daily. Patient is concerned when she looked up the drugs one says stay away from potassium and the other says to eat banana daily. Patientsaid she is taking Potassium also, wants to see what PCP says with the changes? The reports are in chart from the tests. Please advise documented in this encounterUniversity Hospitals [facility]05-16-2024 Telephone encounter Note * Telephone Encounter - Keshia Briseno LPN - 01/23/2024 11:57 AM EDT Patient notified of providers message and verbalized understanding. Patient states that cardiology states they will be having her do labs prior to her appointment with them in March. [facility]05-15-[facility]24 Telephone encounter Note* Telephone Encounter - Willam Estrada MD - 01/22/2024 1:11 PM EDT Reviewed report from echo and stress test. Looked good. Okay to make the changes. Carvedilol is a good med. They might be trying to avoid getting her too dehydrated with furosemide, so switched her to HCTZ. She can stop the potassium pill for now--HCTZ does not cause as much potassium loss, so might not need it. Do not discard the potassium since sometimes patients need to take it with the HCTZ. Not sure why the different warnings on the carvedilol and HCTZ, but does not need to add bananas (too starchy anyway). See whether [facility] or [facility] typewriter will be checking labs through their lab or just get through [facility] when due.for checking next month. [facility]05-13-[facility]24 Telephone encounter Note* Telephone Encounter - Nat Malik LPN - 01/20/2024 4:19 PM EDT Patient calling she had ECHO and NM stress test done and was told both were good from Dr Cruz. Then she got call from [facility] and was told stopping the Atenolol and Furosemide. And starting Carvedilol 6.25 mg one twice daily and HCTZ 50 mg once daily. Patient is concerned when she looked up the drugs one says stay away from potassium and the other says to eat banana daily. Patientsaid she is taking Potassium also, wants to see what PCP says with the changes? The reports are in chart from the tests. Please advise [facility]04-29-2024 Telephone encounter Note* Telephone Encounter - Allegra Berumen APRN.CNP - 01/06/2024 8:35 AM EDT See telephone encounter regarding results. [facility]04-29-2024 Miscellaneous Notes* Telephone Encounter - Allegra Berumen APRN.CNP - 01/06/2024 8:35 AM EDT See telephone encounter regarding results. documented in this encounterUniversity Hospitals [facility]04-05-2024 Miscellaneous Notes* Telephone Encounter - Ish Hurtado RN - 12/13/2023 8:13 AM EDT Phoned patient and given provider's message below with verbalized understanding. Patient will thinkabout the neurology referral and let pcp know what she decides. * Telephone Encounter - Willam Estrada MD - 12/12/2023 4:01 PM EDT Noted that she missed appointment with GI. Result note from labs: Sed rate, CRP, cortisol, celiac screen, IGA,thyroid labs all within normal limits . HgA1C improved to 8.9 CK down to 260--almost within normal limits which is under 197. CMP almost all normal. Glucose improved to 126. Creatine a little low as before (nothing to worry about--high creatinine is what we look for as sign of kidney problems). Alk phos only 2 points above goal, so not concerning. CBC unremarkable Let patient know that since CK is almost within normal limits, I don't think a muscle biopsy is indicated. According to Up to Date, if there were a concern for a problem affecting muscle metabolism, a workup to determine the possible cause should be done before a muscle biopsy to target the work up. At this point, since does not look like she has a concerning myopathy (muscle problem) causing the elevated CK since her CK is almost normal and she does not have signs or symptoms of a progressive myopathy, would not pursue a muscle biopsy. Noted that elevated CK goes back to at least 2003. CK wasfrom skeletal muscle and not her heart. Other lab work up was unremarkable. Can refer to neurology if wants further evaluation and treatment recommendations. * Telephone Encounter - Ashley Hernandez RN - 12/12/2023 12:30 PM EDT Patient calls and asking lab results. Patient states that she continues to have stomach issues. Patient was supposed to have an appointment with Dr. Caceres this week but over slept. Patient now is scheduled in March. Please review and advise, Ashley Hernandez RN documented in this encounterUniversity Hospitals [facility] Center04-01-2024 Miscellaneous Notes* Telephone Encounter - Allegra Berumen APRN.CNP - 12/09/2023 7:24 AM EDT See office visit note. * Telephone Encounter - Nanette Jacobo RN - 12/06/2023 10:28 AM EDT Pt returned the call. States she is unsure what to do. Pt just saw Dr. Estrada on 11/18 but did notdiscuss any of the muscle soreness or weakness. If pt would like to proceed with consult, she should probably be seen first so there is documentation of her problems. Appt given for today at [address] Estrada. Pt states on her paperwork from Dr. Caceres, her last CPK was done 06/2022. * Telephone Encounter - Ish Hurtado RN - 12/06/2023 8:49 AM EDT Left vm for patient to return call to nurse for provider's message. * Telephone Encounter - Willam Estrada MD - 12/04/2023 8:09 PM EDT Noted Reviewed records--had discussed her case with dr. Bella when her CPK was in the 800s to [address]24 range and at the time, recommended that since was only up the 1000's range and she was without symptoms, no further work up was needed--he suspected she had a hereditary disorder causing the elevation without symptoms. Okay to refer for further evaluation now if wants. I did not see any recent labs--check [facility] if was done there. Last ones checked here in [facility] [place] to 300s to 500s range. I can file a consult order if she wants but verify what her CK level has been at [facility] and verify if having symptoms now * Telephone Encounter - Ish Hurtado RN - 11/29/2023 2:49 PM EDT Patient reports she had a colonoscopy with Dr. Caceres yesterday because she is having a lot of bloating. Reports Dr. Caceres saw a lot of inflammation and noted her CK level is elevating. Doctor gave patient the last 5 CK levels, and it has been elevating. Wonders if patient should have a muscle biopsy, as this could play a part in why she is having inflammation and body aches all over. Reports she could have the muscle biopsy done at [facility] with one of the general surgeons, if pcp could send an order to them. Please advise patient. documented in this encounterUniversity Hospitals [facility]03-29-2024 History of Present illness Narrative* Willam Estrada MD - 12/06/2023 3:46 PM EDT This note was created using NoteWriter. Subjective Garland De Santiago is a 63 year old female. Patient presents with: Follow Up: Results of multiple tests, discuss ongoing issues SUBJECTIVE: Garland De Santiago is a 63 year old year old lady here today for follow up appointment for review ofmedical conditions. Reviewed following with Dr. Caceres for GI. Saturday follow up. Ongoing issue with diarrhea with some passing blood clots and mucus.. Some weight loss noted. No fevers or chills. Got new BiPAP and using nightly. Can use with new mask. Doing well with this now. See assessment and plan for other issues addressed. PAST MEDICAL HISTORY Diagnosis Date Allergic rhinitis, cause unspecified 02/10/2007 Anxiety Arthritis Asthma 02/10/2007 Centrilobular emphysema (HCC) Depression Psychiatrist managing (Dr. Bedolla) DM type 2 (diabetes mellitus, type 2) (HCC) Essential hypertension 05/23/2006 Hemorrhage of gastrointestinal tract, unspecified 12/13/2011 Had bleeding hemorrhoids in 2011; normal colonoscopy Internal hemorrhoids without mention of complication 12/13/2011 Mixed hyperlipidemia 05/23/2006 Obesity (BMI 30.0-34.9) YARY (obstructive sleep apnea) Uses BiPAP occasionally Other nonspecific abnormal finding 05/23/2006 CK Elevation Snoring Current Outpatient Medications Medication Sig BIPAP Initiate BiPAP @ 20/14 cm of water with heated humidification. Ti Max 1.0, Ti Min 0.3, trigger medium, cycle high. Mask (medium AirFit F10 full face mask or per patient preference) optional chin strap (if indicated) , filters, tubing, humidifier and lifetime supplies. gabapentin (NEURONTIN) 300 mg capsule Take 2 capsules by mouth two times a day for [address] (PROTONIX) 20 mg tablet Take 1 tablet by mouth two times a day. Take on empty stomach, 1/2 hr before meal. potassium chloride (K-TAB) 10 mEq tablet Take 1 tablet by mouth daily with breakfast. [START ON 12/08/2023] ALPRAZolam (XANAX) 0.5 mg tablet Take 1 tablet by mouth at bedtime as needed for up to 120 days. Do not start before December 08, 2023. glipiZIDE (GLUCOTROL) 5 mg tablet Take 1 tablet (5 mg) by mouth once daily. May take extra half to whole pill daily as needed for blood sugar over 200 fluticasone-vilanterol (BREO ELLIPTA) 200-25 mcg/dose inhaler Inhale 1 Inhalation as instructed once daily. albuterol HFA (VENTOLIN HFA) 90 mcg/actuation inhaler Inhale 2 Puffs as instructed every 4 hours asneeded. mdygdp-jmwjcweh-sxusvtj (CREON 24) 24,000-76,000 -120,000 unit delayed release capsule Take 1 capsule by mouth with meals. With snacks and meals pantoprazole DR (PROTONIX) 40 mg tablet Take 40 mg by mouth two times a day. lisinopril (ZESTRIL) 20 mg tablet Take 1 tablet by mouth two times a day. atenolol (TENORMIN) 50 mg tablet Take 1 tablet by mouth once daily. May also take 0.5-1 tablets once daily as needed (for blood pressure over 180/120). blood sugar diagnostic (TRUE METRIX GLUCOSE TEST STRIP) test strip Test blood sugars twice a day DX: E11.65 Insulin: No Use as instructed Nebulizer and Compressor For Neb Use for albuterol and ipratropium nebulizer treatments every 4 hours as needed ibuprofen (MOTRIN) 600 mg tablet Take 1 tablet by mouth every 12 hours. busPIRone (BUSPAR) 15 mg tablet Take 0.5 tablets by mouth twice daily. furosemide (LASIX) 20 mg tablet Take 1 tablet by mouth once daily. fluticasone (FLONASE) 50 mcg/actuation nasal spray Use 2 Sprays in each nostril once daily. Rinse mouth after use. gemfibrozil (LOPID) 600 mg tablet Take 1 tablet by mouth twice daily. metFORMIN ER (GLUCOPHAGE XR) 500 mg 24 hr tablet Take 1 tablet by mouth twice daily before meals. sertraline (ZOLOFT) 100 mg tablet Take 2 tablets by mouth once daily. traZODone (DESYREL) 100 mg tablet Take 1 tablet by mouth daily at bedtime. ursodiol (ACTIGALL) 300 mg capsule Take 300 mg by mouth twice daily. albuterol (PROVENTIL) 2.5 mg /3 mL (0.083 %) nebulizer solution Use 3 mL via nebulizer every 4 hours as needed for wheezing/shortness of breath. ipratropium (ATROVENT) 0.02 % nebulizer solution Use 2.5 mL via nebulizer four times daily. Unit dose pack of 50 (Patient taking differently: Use 0.5 mg via nebulizer four times daily. Unit dose packof 50 As needed) Vitamin E, dl, acetate, (VITAMIN E) 400 unit capsule Take 800 Units by mouth once daily. Lancets lancets Test blood sugar(s) 2 times daily. Dx: Type 2 DM - Uncontrolled E11.65 Insulin: No ketoconazole (NIZORAL) 2 % cream Apply 1 application to affected area once daily. (Patient taking differently: Apply 1 application to affected area once daily. As needed) Blood-Glucose Meter monitoring kit Insurance covered or per patient choice. Test blood sugar twice daily plus as needed for symptoms of blood sugars being too high or low. Dx: Type 2 DM - Uncontrolled E11.65 Insulin:No Nebulizer NEBULIZER FOR HOME USE. DX: J45.42 No current facility-administered medications for this visit. Review of Systems Objective BP (P) 130/82 (BP Site: Left Arm, BP Position: Sitting, BP Cuff Size: Large Adult) Pulse (P) 78 Wt (P) 90.3 kg (199 lb) BMI (P) 32.12 kg/m Physical Exam Constitutional: Appearance: Normal appearance. She is obese. HENT: Head: Normocephalic. Eyes: Conjunctiva/sclera: Conjunctivae normal. Cardiovascular: Rate and Rhythm: Normal rate and regular rhythm. Heart sounds: Normal heart sounds. Pulmonary: Effort: Pulmonary effort is normal. Breath sounds: Normal breath sounds. Musculoskeletal: Right lower leg: No edema. Left lower leg: No edema. Skin: General: Skin is warm and dry. Neurological: General: No focal deficit present. Mental Status: She is alert and oriented to person, place, and time. Psychiatric: Mood and Affect: Mood normal. Behavior: Behavior normal. Thought Content: Thought content normal. Judgment: Judgment normal. Assessment and Plan Encounter Diagnosis ICD-10-CM 1. Diarrhea, unspecified type R19.7 CK CREATINE KINASE TSH BLD T4 FREE/FREE THYROX T3 FREE BLD CBC CORTISOL BLD CELIAC SCREEN WITH REFLEX C-REACTIVE PROTEIN (CRP) SED RATE WESTERGREN Follow up with GI for further evaluation and treatment. 2. Elevated CK R74.8 CK CREATINE KINASE TSH BLD T4 FREE/FREE THYROX T3 FREE BLD CBC CORTISOL BLD CELIAC SCREEN WITH REFLEX Noted GI recommendation for muscle biopsy based on prior high CK but patient had prior workup when level was in 1000 range. See below discussion 3. Myalgias M79.10 Mild and achy now. Noted was not symptomatic when CK was in 1000 range or when was in 300 to 500 range more recently 4. Type 2 diabetes mellitus with hyperglycemia, without long-term current use of insulin (HCC) E11.65 Update labs. Adjust meds as well as diet and exercise as indicated 5. Class 1 obesity due to excess calories with body mass index (BMI) of 32.0 to 32.9 in adult, unspecified whether serious comorbidity present E66.09 Z68.32 Lost some weight. Not sure if due to GI issues or doing better with healthier diet. Continue efforts at healthier diet and exercise as able 6. YARY (obstructive sleep apnea) G47.33 New BiPAP. Using nightly and tolerating better since got a new mask Above issues addressed with patient. Patient involved in shared decision making for management of medical issues. History and medications reviewed. Epic updated as needed Refills and/or prescriptions taken care of and meds adjusted as indicated after reviewed history, exam and labs. Health Maintenance reviewed. Updated record and/or ordered tests as recorded. Encouraged on efforts at healthy diet and regular exercise and adequate sleep. Needs to keep working on diet and exercise with lifestyle changes for effective weight loss as well as control of DM, and control of BP and lipids. Discussed elevated CK and prior work up. Reviewed that her case had been discussed with neurology when level was in 1000 range, and since she was asymptomatic and workup had been unremarkable. Nothing further was needed to be done and it was presumed that the elevated CK was probably due to a hereditary disorder that did not need further workup or treatment. CK levels had been steadily declining over the years without specific treatment--was down to 394 in 2019. Recommended follow up labs before deciding about muscle biopsy. Can refer to neurology as needed fort further evaluation. I spent a total of 46 minutes on the date of the service which included preparing to see the patient, [id number] patient care, completing clinical documentation, obtaining and/or reviewing separately obtained history, performing a medically appropriate examination, counseling and educating the pat ient/family/caregiver, ordering medications, tests, or procedures, independently interpreting results (not separately reported), and communicating results to the patient/family/caregiver. Willam Estrada MD documented in this encounterUniversity Hospitals Beach[facility]03-21-2024 Procedure [facility]03-21-2024 Procedure [facility]03-18-2024 Miscellaneous Notes* Telephone Encounter - Justyna Mora APRN.CNP - 11/25/2023 2:56 PM EDT Spoke with patient and the following results were discussed: LDCT Lung Screen Results LungRADS category: 2 S Incidentals: moderate coronary artery calcifications Recommendations: Continue annual screening with LDCT in 12 months. Follow up with [facility]ology [facility]. Patient verbalized understanding of the results and had no other questions or concerns at this time. Justyna Mora APRN.CNP November 25, 2023 2:56 PM * Telephone Encounter - Vikki Oliveira MA - 11/25/2023 11:06 AM EDT Pt calling for results of recent Screening CT. She states it is ok to send results via [employer]. Vikki Oliveira MA documented in this encounterUniversity Hospitals [facility] Center03-15-2024 History of Present illness Narrative* Tran Wilson RT(R) - 11/22/2023 3:40 PM EDT Radiology Service Progress Note PATIENT NAME: Garland De Santiago DATE OF SERVICE: November 22, 2023 TIME: 3:59 PM PATIENT IDENTITY VERIFICATION COMPLETED USING TWO (2) IDENTIFIERS: Name and Date of confirmedby patient verbally. FALL SCREENING: Has the patient had 2 falls in the last year or 1 fall with injury or currently using an Ambulatory Assistive Device (Walker, Cane, Wheelchair, Crutches, etc.)? No PATIENT GENDER DATA: Female. status: : No status: NO. PATIENT RELEVANT IMPLANT DATA REVIEWED: Yes PATIENT PRESENTS WITH AN IMPLANTABLE OR ATTACHED CHERRY PICKER OPERATOR: No RADIOLOGY DEPARTMENT: CT; Exam(s) Completed: Chest PERIPHERAL IV DATA: Not applicable SIGNED BY: RT Edwin(R) November 22, 2023 3:59 PM documented in this encounterUniversity Hospitals Beachwood [facility] Center03-13-2024 Miscellaneous Notes* Telephone Encounter - Corinne Belle LPN - 11/20/2023 4:59 PM EDT Faxed as requested. * Telephone Encounter - Willam Estrada MD - 11/20/2023 3:26 PM EDT Print progress note and fax as requested below * Telephone Encounter - Nat Malik LPN - 11/20/2023 3:13 PM EDT Patient calling she did talk to [facility] and they need several things faxed to them. The CPAP [place]. Also need office notes addendum, needs tosay her CPAP is broken and more than 5 years old and copy of her sleep study from 2013 to be faxed to [phone]. Pending order to print Please advise documented in this encounterUniversity Hospitals Beachwood [facility] Center03-12-2024 Instructions* Patient Instructions* Willam Estrada MD - 11/19/2023 5:47 PM EDT See if [facility] is covered with your insurance. If not, [facility] the [facility] documented in this encounterUniversity Hospitals Beach[facility] Center03-12-2024 History of Present illness Narrative* Willam Estrada MD - 11/19/2023 5:21 PM EDT This note was created using Apprityriter. Subjective Garland De Santiago is a 63 year old female. Patient presents with: Follow Up: med refills, c/o hemorrhoid seeing next and colonoscopy discuss getting a new bipap machine last 2013 SUBJECTIVE: Garland De Santiago is a 63 year old year old lady here today for follow up appointment for review ofmedical conditions. Issues with loose stools, bloating and hemorrhoids. Following up with Dr. Caceres. Ongoing stomach pain, diarrhea and gas. Limited with what she can eat. Stable on current meds. Refills as discussed. Noted that needs new BiPAP machine. Last BiPAP was from 2013. Needs new mask as well as humidifier not working right. PAST MEDICAL HISTORY Diagnosis Date Allergic rhinitis, cause unspecified 02/10/2007 Anxiety Arthritis Asthma 02/10/2007 Centrilobular emphysema (HCC) Depression Psychiatrist managing (Dr. Bedolla) DM type 2 (diabetes mellitus, type 2) ([facility]) Essential hypertension 05/23/2006 Hemorrhage of gastrointestinal tract, unspecified 12/13/2011 Had bleeding hemorrhoids in 2012; normal colonoscopy Internal hemorrhoids without mention of complication 12/13/2011 Mixed hyperlipidemia 05/23/2006 Obesity (BMI 30.0-34.9) YARY (obstructive sleep apnea) Uses BiPAP occasionally Other nonspecific abnormal finding 05/23/2006 CK Elevation Snoring Current Outpatient Medications Medication Sig gabapentin (NEURONTIN) 300 mg capsule Take 2 capsules by mouth every morning AND 3 capsules every evening. Do all this for 120 days. fluticasone-vilanterol (BREO ELLIPTA) 200-25 mcg/dose inhaler Inhale 1 Inhalation as instructed once daily. albuterol HFA (VENTOLIN HFA) 90 mcg/actuation inhaler Inhale 2 Puffs as instructed every 4 hours asneeded. dpjzbv-juntregx-xjtfyon (CREON 24) 24,000-76,000 -120,000 unit delayed release capsule Take 1 capsule by mouth with meals. With snacks and meals pantoprazole DR (PROTONIX) 40 mg tablet Take 40 mg by mouth two times a day. lisinopril (ZESTRIL) 20 mg tablet Take 1 tablet by mouth two times a day. atenolol (TENORMIN) 50 mg tablet Take 1 tablet by mouth once daily. May also take 0.5-1 tablets once daily as needed (for blood pressure over 180/120). ALPRAZolam (XANAX) 0.5 mg tablet Take 1 tablet by mouth at bedtime as needed for up to 120 days. Donot start before August 08, 2023. blood sugar diagnostic (TRUE METRIX GLUCOSE TEST STRIP) test strip Test blood sugars twice a day DX: E11.65 Insulin: No Use as instructed Nebulizer and Compressor For Neb Use for albuterol and ipratropium nebulizer treatments every 4 hours as needed ibuprofen (MOTRIN) 600 mg tablet Take 1 tablet by mouth every 12 hours. busPIRone (BUSPAR) 15 mg tablet Take 0.5 tablets by mouth twice daily. furosemide (LASIX) 20 mg tablet Take 1 tablet by mouth once daily. fluticasone (FLONASE) 50 mcg/actuation nasal spray Use 2 Sprays in each nostril once daily. Rinse mouth after use. gemfibrozil (LOPID) 600 mg tablet Take 1 tablet by mouth twice daily. metFORMIN ER (GLUCOPHAGE XR) 500 mg 24 hr tablet Take 1 tablet by mouth twice daily before meals. sertraline (ZOLOFT) 100 mg tablet Take 2 tablets by mouth once daily. traZODone (DESYREL) 100 mg tablet Take 1 tablet by mouth daily at bedtime. ursodiol (ACTIGALL) 300 mg capsule Take 300 mg by mouth twice daily. albuterol (PROVENTIL) 2.5 mg /3 mL (0.083 %) nebulizer solution Use 3 mL via nebulizer every 4 hours as needed for wheezing/shortness of breath. potassium chloride (K-TAB) 10 mEq tablet Take 1 tablet by mouth daily with breakfast. glipiZIDE (GLUCOTROL) 5 mg tablet Take 1 tablet by mouth once daily. May take extra half to whole pill daily as needed for blood sugar over 200 (Patient taking differently: Take 5 mg by mouth once daily. May take extra half to whole pill daily as needed for blood sugar over 200 Takes if Blood Sugar over 200 but not daily otherwise) ipratropium (ATROVENT) 0.02 % nebulizer solution Use 2.5 mL via nebulizer four times daily. Unit dose pack of 50 (Patient taking differently: Use 0.5 mg via nebulizer four times daily. Unit dose packof 50 As needed) Vitamin E, dl, acetate, (VITAMIN E) 400 unit capsule Take 800 Units by mouth once daily. Lancets lancets Test blood sugar(s) 2 times daily. Dx: Type 2 DM - Uncontrolled E11.65 Insulin: No ketoconazole (NIZORAL) 2 % cream Apply 1 application to affected area once daily. (Patient taking differently: Apply 1 application to affected area once daily. As needed) Blood-Glucose Meter monitoring kit Insurance covered or per patient choice. Test blood sugar twice daily plus as needed for symptoms of blood sugars being too high or low. Dx: Type 2 DM - Uncontrolled E11.65 Insulin:No Nebulizer NEBULIZER FOR HOME USE. DX: J45.42 BIPAP Initiate BiPAP @ 20/14 cm of water with heated humidification. Ti Max 1.0, Ti Min 0.3, trigger medium, cycle high. Mask (medium AirFit F10 full face mask or per patient preference) optional chin strap (if indicated) , filters, tubing, humidifier and lifetime supplies. No current facility-administered medications for this visit. Review of Systems Objective BP 112/60 (BP Site: Left Arm, BP Position: Sitting, BP Cuff Size: Large Adult) Pulse 78 Temp 36.5 C (97.7 F) Resp 14 Ht 167.6 cm (5' 6) Wt 89.8 kg (198 lb) SpO2 98% BMI 31.96 kg/m Physical Exam Constitutional: Appearance: Normal appearance. HENT: Head: Normocephalic. Eyes: Conjunctiva/sclera: Conjunctivae normal. Cardiovascular: Rate and Rhythm: Normal rate and regular rhythm. Heart sounds: Normal heart sounds. Pulmonary: Effort: Pulmonary effort is normal. Breath sounds: Normal breath sounds. Musculoskeletal: Right lower leg: No edema. Left lower leg: No edema. Skin: General: Skin is warm and dry. Neurological: General: No focal deficit present. Mental Status: She is alert and oriented to person, place, and time. Psychiatric: Attention and Perception: Attention and perception normal. Mood and Affect: Mood and affect normal. Speech: Speech normal. Behavior: Behavior normal. Thought Content: Thought content normal. Cognition and Memory: Cognition normal. Judgment: Judgment normal. Latest Ref Rng 05/06/2023 05/31/2023 11/16/2023 WBC 3.70 - 11.00 k/uL 9.02 13.19 (H) 8.08 RBC 3.90 - 5.20 m/uL 5.06 5.28 (H) 5.13 Hemoglobin 11.5 - 15.5 g/dL 14.6 15.7 (H) 14.6 Hematocrit 36.0 - 46.0 % 42.6 44.5 43.2 MCV 80.0 - 100.0 fL 84.2 84.3 84.2 MCH 26.0 - 34.0 pg 28.9 29.7 28.5 MCHC 30.5 - 36.0 g/dL 34.3 35.3 33.8 RDW-CV 11.5 - 15.0 % 13.5 13.1 12.7 Platelet Count 150 - 400 k/uL 277 401 (H) 280 MPV 9.0 - 12.7 fL 9.7 9.8 10.1 Neut% % 47.0 Abs Neut (ANC) 1.45 - 7.50 k/uL 6.19 Lymph% % 34.3 Abs Lymph 1.00 - 4.00 k/uL 4.52 (H) Tate% % 5.8 Abs Tate <0.87 k/uL 0.77 Eosin% % 11.8 Abs Eosin <0.46 k/uL 1.56 (H) Baso% % 0.6 Abs Baso <0.11 k/uL 0.08 Immature Gran % % 0.5 IMMATURE GRANS (ABS) <0.10 k/uL 0.07 NRBC /100 WBC 0.0 Absolute nRBC <0.01 k/uL <0.01 <0.01 <0.01 DTYPE Auto Protein, Total 6.3 - 8.0 g/dL 7.2 6.9 6.9 Albumin 3.9 - 4.9 g/dL 4.4 4.3 4.2 Calcium 8.5 - 10.2 mg/dL 9.4 9.2 9.2 Bilirubin, Total 0.2 - 1.3 mg/dL 0.3 0.2 0.2 Alkaline Phosphatase 34 - 123 U/L 71 84 118 AST 13 - 35 U/L 21 14 32 ALT 7 - 38 U/L 12 11 16 Glucose 74 - 99 mg/dL 202 (H) 201 (H) 221 (H) BUN 7 - 21 mg/dL 15 13 12 Creatinine 0.58 - 0.96 mg/dL 0.58 0.50 (L) 0.45 (L) Sodium 136 - 144 mmol/L 142 139 138 Potassium 3.7 - 5.1 mmol/L 3.4 (L) 3.5 (L) 4.1 Chloride 97 - 105 mmol/L 104 103 100 CO2 22 - 30 mmol/L 25 22 25 Anion Gap 9 - 18 mmol/L 13 14 13 eGFR >=60 mL/min/1.73m 102 106 108 Cholesterol, Total <200 mg/dL 152 129 Triglyceride <150 mg/dL 375 (H) 336 (H) HDL Cholesterol >39 mg/dL 23 (L) 24 (L) Non HDL Cholesterol <130 mg/dL 129 105 Fasting Time hrs 12 12 VLDL Cholesterol <30 mg/dL 75 (H) 67 (H) TC:HDL Ratio <5.10 6.61 (H) 5.38 (H) LDL Cholesterol <100 mg/dL 54 38 LDL:HDL Ratio <2.54 2.35 1.58 Hemoglobin A1C 4.3 - 5.6 % 7.9 (H) 9.2 (H) Estimated Average Glucose mg/dL 180 217 TSH 0.270 - 4.200 mIU/L 0.989 CRP <0.9 mg/dL <0.3 JOSE F Negative Negative WSR 0 - 20 mm/hr 5 Legend: (H) High (L) Low Assessment and Plan Encounter Diagnosis ICD-10-CM 1. Type 2 diabetes mellitus with hyperglycemia, without long-term current use of insulin (HCC) E11.65 Should get better controlled with getting back on Glipizide 1 tablet plus extra half if needed. Continue efforts at healthy diet and exercise as able 2. YARY (obstructive sleep apnea) G47.33 DISCONTINUED: BIPAP Needs new BiPAP due to current machine is older than 5 years old and is broken. 3. Neuropathy G62.9 gabapentin (NEURONTIN) 300 mg capsule Continue present management 4. Anxiety and depression F41.9 ALPRAZolam (XANAX) 0.5 mg tablet F32.A Stable with present management. Continue same 5. Essential hypertension I10 Well controlled. No changes 6. Mixed hyperlipidemia E78.2 LDL fine; TG >300 and HDL low at 24. Need to limit simple carbs and get more omega 3 oils and exercise. Stay on same statin dose 7. Severe persistent asthma without complication J45.50 Continue present management. Stable on current meds 8. Recurrent major depressive disorder, in remission (HCC) F33.40 Stable on current meds 9. Type 2 diabetes mellitus with diabetic neuropathy, without long-term current use of insulin (HCC) E11.40 As noted above. Above issues addressed with patient. Patient involved in shared decision making for management of medical issues. History and medications reviewed. Epic updated as needed Refills and/or prescriptions taken care of and meds adjusted as indicated after reviewed history, exam and labs. Health Maintenance reviewed. Updated record and/or ordered tests as recorded. Encouraged on efforts at healthy diet and regular exercise and adequate sleep. Needs to keep working on diet and exercise with lifestyle changes for effective weight loss as well as control of DM, and control of BP and lipids. Willam Estrada MD documented in this encounter[facility] Instructions* Patient Instructions* Justyna Mora APRN.PARTS DEPARTMENT MANAGER - 11/11/2023 11:39 AM EST SMOKING CESSATION EDUCATION Why do I need to know about the health risks of cigarette smoking? Cigarette smoking is the most preventable cause of illness and . Cigarettes are filled with nicotine, which acts like a poison in your body. What are the health risks of cigarette smoking? You may have breathing problems that make it difficult for you to do daily activities or play sports. You have a higher risk of bone fractures because smoking can cause osteoporosis (brittle bones). If you fall asleep with a lit cigarette, you can start a fire. Cigarette smoking can also cause the following health problems: Cancer: Heart and blood vessel disease: The nicotine in tobacco causes an increase in your heart rate and blood pressure. Nicotine also causes your blood vessels to narrow. This can lead to blood clots in your heart or brain and cause a heart attack or stroke. Cigarette smoke has carbon monoxide init. This can decrease the amount of oxygen flowing to your heart and other organs. Lung disease: The chemicals in cigarette smoke can damage your lungs. This causes a buildup of dirtand waste products in your lungs. Many people who smoke have a long-term cough as a result. Cigarette smoking may also cause long-term lung infections or diseases, such as asthma, emphysema, or chronic bronchitis. You are also at higher risk for respiratory illnesses, such as colds or pneumonia. Gastrointestinal disease: Cigarette smoking increases the amount of acid in your stomach. This can cause an ulcer or gastric reflux. Women and smoking: You have a higher risk of heart and blood vessel disease if you smoke and take control pills. The risk is more serious is you are 35 years or older. Why should I quit smoking? Your health will improve and your risks for many diseases will decrease.Your breath, clothes, and hair will no longer smell like smoke. Tobacco will no longer stain your teeth. Tobacco smoke is dangerous to others. If you quit, you will decrease the risks to those aroundyou, such as your children or family members. Where can I go for support and more information? There are many ways to quit smoking. Some may workbetter for you than others. Your caregiver can help you find the best plan to quit. Smokefree.gov Web Address: www.smokefree.gov Phone: [place] [employer] Web Address: www.lung.org [address] [place] , [place] Phone: Phone: [facility] Smoking Cessation Program [email or web address] CT Lung Screen Results The CT scan that you will have done will show if you have any nodules (small spots) in your lungs that are suspicious for cancer. Around 90% of the patients who have this scan done are found to have at least one nodule. Most nodules are benign (not cancer) and of no harm to you at all. A specialistwill make a scientific evaluation about whether or not a nodule is worrisome based on its size and shape. The radiologist who will read your scan will put it into one of four categories: LUNG-RADS Category Description Overall Probability of Malignancy Recommended Follow-Up 1 Negative No nodules and definitely benign (non-cancerous nodules) Essentially 0. 1 Year - Follow-up Low dose CT 2 Benign Appearance or Behavior Nodules with a very low likelihood of becoming cancer due to size or lack of growth Less than 1% 1 Year - Follow-up Low dose CT 3 Probably Benign Probably benign finding, short term follow-up recommended 1 to 2% 6 Months - Follow-up Low dose CT 4 Suspicious Findings for which additional diagnostic testing and/or biopsy is recommended Will be calculated based on nodule characteristics. Dependent on what is seen on the exam. (3 month follow-up CT, PET-CT, or biopsy) At times, we may see something outside of the lungs on the scan that could be a health concern. Below are some of the most common findings: S Clinically Significant or Potentially Clinically Significant Findings (non lung cancer) Referral or additional imaging/labs depending on result. Approximately 10% of people receive this result. Coronary Artery Calcifications (Moderate or Severe) - Referral to cardiology for further work-up and recommendations. Thyroid Nodule - TSH level and Thyroid Ultrasound dependent on size, referral to endocrinology. Adrenal Nodule - blood work and referral to endocrinology. Others Lung Cancer Screening hotline: [phone] Lung Cancer Screening [phone] Billing Questions: or [email or web address] Specialist Providers: (Sarah Daley CNP; Tegan Thomason PA-C; Monica Castellon CNP; Janelle Feliz CNP, Soha Hollis CNP; Tran Duran CNP; Garland Martinez PA-C; Justyna Mora CNP; Kati Raymond CNP; Leonarda Edwards PA-C; Aparna Shah CNP; Claudia Mena CNP; Lori Ceballos CNP): [phone] documented in this encounterUniversity [facility]03-04-2024 History of Present illness Narrative* Justyna Mora APRN.CNP - 11/11/2023 11:16 AM EST Images from the original note were not included. LUNG SCREENING VISIT PRIMARY CARE PHYSICIAN: Willam Estrada MD PULMONARY PROVIDER: Dr. Seun Corrigan Results will be communicated via letter or electronic record if applicable. Visit Delivery: In Person Patient Visit Type: New to [place] Current or Ex-smoker? [Current Exam Type: baseline LDCT Number of Pack Years: 47 Current smoker (=0) The patient's smoking history is similar to prior year shared decision visit. The reason for the discrepancy is NA REQUESTER: The referring provider advised the patient to have screening. HISTORY OF PRESENT ILLNESS: Garland De Santiago is a 63 year old Active smoker who presents for lung screening. Currently smokingaround 2 PPD. Uses pipe tobacco, and rolls own. Tries not rolling as many, but then caves and rollsmore. Respiratory symptoms include: SOB: Yes stairs Chest tightness: Yes Coughing: Yes: With mucus White Hemoptysis: No Wheezing: Yes Fever/Chills: No Recent Respiratory Infection: No Unintentional weight loss: No Last 6 Encounter Wt Readings: Date: Wt: 11/11/2023 90.7 kg (200 lb) 11/05/2023 90.5 kg (199 lb 9.6 oz) 10/03/2023 91.1 kg (200 lb 12.8 oz) 09/05/2023 90.2 kg (198 lb 12.8 oz) 08/06/2023 89.8 kg (198 lb) 07/23/2023 90.7 kg (200 lb) ECOG PERFORMANCE STATUS: 1- Restricted in physically strenuous activity. Carries out light duty. Modified Medical Research Cornelius Dyspnea Scale (MMRC) On level ground I walk slower than people of the same age because of breathlessness, or have to stop for breath when walking at my own pace 2 PAST MEDICAL HISTORY Diagnosis Date Allergic rhinitis, cause unspecified 02/10/2007 Anxiety Arthritis Asthma 02/10/2007 Centrilobular emphysema (HCC) Depression Psychiatrist managing (Dr. Bedolla) DM type 2 (diabetes mellitus, type 2) (HCC) Essential hypertension 05/23/2006 Hemorrhage of gastrointestinal tract, unspecified 12/13/2011 Had bleeding hemorrhoids in 2011; normal colonoscopy Internal hemorrhoids without mention of complication 12/13/2011 Mixed hyperlipidemia 05/23/2006 Obesity (BMI 30.0-34.9) YARY (obstructive sleep apnea) Uses BiPAP occasionally Other nonspecific abnormal finding 05/23/2006 CK Elevation Snoring PAST SURGICAL HISTORY Procedure Laterality Date ADENOIDECTOMY PRIMARY <AGE 12 Adenoidectomy ANTERIOR COLPORRAPHY RPR CYSTOCELE W/CYSTO Cystocele repair APPENDECTOMY APPENDECTOMY HX ARTHRP KNE CONDYLE&PLATU MEDIAL&LAT COMPARTMENTS 07/10/2015 right BACK SURGERY HX COLONOSCOPY 02/22/2022 COLONOSCOPY FLX DX W/COLLJ SPEC WHEN PFRMD 12/13/2011 Colonoscopy repeat 10 years EGD W/O [facility] SPEC VARICIES INJ 02/22/2022 ESOPHAGOGASTRODUODENOSCOPY TRANSORAL DIAGNOSTIC 02/09/2016 EGD INCISE FINGER TENDON SHEATH Right 08/10/2021 Right ring trigger finger release JOINT REPLACEMENT HX LAPS ABD PRTM&OMENTUM DX W/WO SPEC BR/WA SPX Laparoscopy LAPS SURG CHOLECYSTECTOMY W/CHOLANGIOGRAPHY 10/07/2006 LIG/TRNSXJ FLP TUBE ABDL/VAG APPR UNI/BI Tubal ligation PAST SURGICAL HISTORY OF 06/22/2010 right knee arthroscopy- by Dr Dawson ([facility]) PAST SURGICAL HISTORY OF 04/27/2020 low back surgery at [facility];s/p L4 laminectomy, decompression of L4-5 canal stenosis with bilateral L4,L5 root foraminotomies TONSILLECTOMY PRIMARY/SECONDARY <AGE 12 Tonsillectomy VAGINAL HYSTERECTOMY UTERUS 250 GM/< Hysterectomy, vaginal for menorrhagia FAMILY HISTORY Problem Relation Age of Onset Hypertension Mother history of glaucoma Cervical Cancer Mother Asthma Mother Heart Father [place] x 2 Cancer Father Lung, metastatic to bone, age 77 other (aortic aneurysm) Father 50 Colon Polyps Sister Thyroid Sister Hypothyroidism Thyroid Sister Cancer Sister Lung, LLL. Resected. No Known Problems Daughter No Known Problems Son gabapentin (NEURONTIN) 300 mg capsule Take 2 capsules by mouth every morning AND 3 capsules every evening. Do all this for 120 days. fluticasone-vilanterol (BREO ELLIPTA) 200-25 mcg/dose inhaler Inhale 1 Inhalation as instructed once daily. albuterol HFA (VENTOLIN HFA) 90 mcg/actuation inhaler Inhale 2 Puffs as instructed every 4 hours asneeded. wcjkwf-chuojgaf-vxqavoe (CREON 24) 24,000-76,000 -120,000 unit delayed release capsule Take 1 capsule by mouth with meals. With snacks and meals pantoprazole DR (PROTONIX) 40 mg tablet Take 40 mg by mouth two times a day. lisinopril (ZESTRIL) 20 mg tablet Take 1 tablet by mouth two times a day. atenolol (TENORMIN) 50 mg tablet Take 1 tablet by mouth once daily. May also take 0.5-1 tablets once daily as needed (for blood pressure over 180/120). ALPRAZolam (XANAX) 0.5 mg tablet Take 1 tablet by mouth at bedtime as needed for up to 120 days. Donot start before August 08, 2023. blood sugar diagnostic (TRUE METRIX GLUCOSE TEST STRIP) test strip Test blood sugars twice a day DX: E11.65 Insulin: No Use as instructed Nebulizer and Compressor For Neb Use for albuterol and ipratropium nebulizer treatments every 4 hours as needed ibuprofen (MOTRIN) 600 mg tablet Take 1 tablet by mouth every 12 hours. busPIRone (BUSPAR) 15 mg tablet Take 0.5 tablets by mouth twice daily. furosemide (LASIX) 20 mg tablet Take 1 tablet by mouth once daily. fluticasone (FLONASE) 50 mcg/actuation nasal spray Use 2 Sprays in each nostril once daily. Rinse mouth after use. gemfibrozil (LOPID) 600 mg tablet Take 1 tablet by mouth twice daily. metFORMIN ER (GLUCOPHAGE XR) 500 mg 24 hr tablet Take 1 tablet by mouth twice daily before meals. sertraline (ZOLOFT) 100 mg tablet Take 2 tablets by mouth once daily. traZODone (DESYREL) 100 mg tablet Take 1 tablet by mouth daily at bedtime. ursodiol (ACTIGALL) 300 mg capsule Take 300 mg by mouth twice daily. albuterol (PROVENTIL) 2.5 mg /3 mL (0.083 %) nebulizer solution Use 3 mL via nebulizer every 4 hours as needed for wheezing/shortness of breath. potassium chloride (K-TAB) 10 mEq tablet Take 1 tablet by mouth daily with breakfast. glipiZIDE (GLUCOTROL) 5 mg tablet Take 1 tablet by mouth once daily. May take extra half to whole pill daily as needed for blood sugar over 200 (Patient taking differently: Take 5 mg by mouth once daily. May take extra half to whole pill daily as needed for blood sugar over 200 Takes if Blood Sugar over 200 but not daily otherwise) ipratropium (ATROVENT) 0.02 % nebulizer solution Use 2.5 mL via nebulizer four times daily. Unit dose pack of 50 (Patient taking differently: Use 0.5 mg via nebulizer four times daily. Unit dose packof 50 As needed) Vitamin E, dl, acetate, (VITAMIN E) 400 unit capsule Take 800 Units by mouth once daily. Lancets lancets Test blood sugar(s) 2 times daily. Dx: Type 2 DM - Uncontrolled E11.65 Insulin: No ketoconazole (NIZORAL) 2 % cream Apply 1 application to affected area once daily. (Patient taking differently: Apply 1 application to affected area once daily. As needed) Blood-Glucose Meter monitoring kit Insurance covered or per patient choice. Test blood sugar twice daily plus as needed for symptoms of blood sugars being too high or low. Dx: Type 2 DM - Uncontrolled E11.65 Insulin:No Nebulizer NEBULIZER FOR HOME USE. DX: J45.42 BIPAP Initiate BiPAP @ 20/14 cm of water with heated humidification. Ti Max 1.0, Ti Min 0.3, trigger medium, cycle high. Mask (medium AirFit F10 full face mask or per patient preference) optional chin strap (if indicated) , filters, tubing, humidifier and lifetime supplies. ALLERGIES Allergen Reactions Cephalosporins Rash Dilaudid [Hydromorp* Mental Status Change Dust Mites Omnicef [Cefdinir] Hives Paxil [Paroxetine] Intolerance excessive sweating Penicillins Hives, Other: See Comments Any medication with penicillin in it. Had been given amoxicillin in 2011 and had reaction Given test dose of 2cc's on 08/17/2019 causing sever flushing along with hypotension Prednisone Intolerance Elevated BS, ER Prozac [Fluoxetine * Mental Status Change, Diarrhea Pseudoephedrine Intolerance Heart racing Vicodin [Hydrocodon* GI Upset The medications and allergies were reviewed and reconciled for this patient and deemed current. Lung Cancer Risk Factors: 1.Tobacco Use: Start Age 17, Quit Age: N/A, Average packs per day 1, Pack Years 47 2. Passive Smoke Exposure: Yes, as a Child and as an Adult 3. Personal hx of malignancy: No, Type of Cancer: 4. Significant exposures (1 year or more of exposure): Other, [employer]-worked in [employer] 5. Race: White 6. Education: High School Graduate 7. BMI:There is no height or weight on file to calculate BMI. Patient-entered Height: 5'6 Patient-entered Weight: 200 pounds 8. COPD: Yes 9. Pneumonia in the past 5 years: No 10. Is there a history of lung cancer in a first degree relative? Yes 11. Is there a history of lung cancer in a non-first degree relative? Yes 12. Is there a history of any other cancer in a first degree relative? No Health Maintenance Immunization History Administered Date(s) Administered COVID-19 original vaccine, full dose, monovalent (MODERNA) 11/16/2020 12/15/2020 08/04/2021 04/06/2022 COVID-19 vaccine, age 12+ yr, bivalent (MODERNA) 08/20/2022 diphtheria tetanus (DT) vaccine, pediatric 10/11/1998 influenza (IIV3) vaccine, age 3+ yr, trivalent (AFLURIA, FLULAVAL, FLUVIRIN, FLUZONE) 06/14/2014 08/04/2021 influenza (IIV3) vaccine, trivalent (AFLURIA, FLULAVAL, FLUVIRIN, FLUZONE) 07/22/2015 influenza (IIV3) vaccine, trivalent, PF (AFLURIA, FLUARIX, FLULAVAL, FLUVIRIN, FLUZONE) 07/22/2015 influenza (IIV4) vaccine, age 6 mo - 64 yr, quadrivalent (AFLURIA, FLULAVAL, FLUZONE) 05/30/2016 05/30/2018 10/13/2019 08/07/2022 07/23/2023 influenza (ccIIV4) vaccine, age 6+ mo, quadrivalent, PF (FLUCELVAX) 08/04/2021 influenza vaccine, unspecified formulation 07/14/2012 06/19/2013 pneumococcal conjugate (PCV20) vaccine, 20 valent (PREVNAR 20) 07/23/2023 pneumococcal polysaccharide (PPV23) vaccine, 23 valent (PNEUMOVAX 23) 03/22/2010 09/09/2010 pneumococcal vaccine, unspecified formulation 09/09/2010 tetanus diphtheria (Td) vaccine, adult, non-adsorbed 09/14/2008 tetanus immune globulin (TIG) (HYPERTET) 10/11/1998 Deferred Date(s) Deferred influenza (IIV4) vaccine, age 6 mo - 64 yr, quadrivalent, PF (AFLURIA, FLUARIX, FLULAVAL, FLUZONE) 08/18/2019 Colonoscopy: 09/14/2021 Mammogram: 09/30/2023 DATA REVIEW I have directly visualized the testing documented: 10/11/2021 LDCT [facility] Lung RADS category 1. Pt has small lung nodules noted in RUL and RML. 10/15/2022 LDCT images are not available for review, requestedx 2. Report is category 2. No nodules listed in the report. Atelectasis? RML Prior Imaging: Last XR Chest - Impression Only XR CHEST 2V FRONTAL/LAT Exam End: 05/28/2023 6:46 PM (Final result) Impression: IMPRESSION: Small bilateral pleural effusions. ... 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 ATS/ERS acceptability and repeatability standards for spirometry met. Medications and Allergies were reviewed for possible drug interactions per policy. No contraindications or sensitivities were noted. Meds taken: Breo 6 hours before and Albuterol 4 hours before testing. IMPRESSION: Spirometry is normal. Flow volume loop pattern sugggests small airways obstruction. The diffusing capacity is normal. Electronically Signed On 04-24-2023 14:09:47 EDT by Mona Corrigan MD ID: [id number] Name: GARLAND DE SANTIAGO Race: White Ht: 64.80 in Wt: 201.00 lbs Age: 62 Gender: Female : 1960 Dx: COPD_ Smoking Hx: Non-smoker Doctor: LEILA RUBI Test Date: 04/24/2023 Site: Tech: Lucy Chandra PRE-BRONCH POST-BRONCH Pre LLN Pred ULN %Pred Post %Pred %Chg SPIROMETRY FVC (L) 2.91 2.17 3.01 3.87 96 FEV1 (L) 2.03 1.69 2.38 3.02 85 FEV1/FVC 0.70 0.67 0.79 0.89 87 PEF L/s (L/sec) 5.37 4.50 6.25 8.01 85 FEF50 (L/sec) 2.14 1.73 3.34 4.95 64 FIF50 (L/sec) 4.88 FEF50/FIF50 0.44 90-100 FIVC (L) 2.87 CLL31-97 (L/sec) 1.13 1.09 2.19 3.68 51 Time (sec) 9.75 FET PEF (sec) 0.08 MARCO (L) 0.08 Vol Extrap % (%) 3 LUNG DIFFUSION DLCOunc (ml/min/mmHg) 16.19 15.46 21.63 27.80 74 VA (L) 4.53 4.09 5.19 6.30 87 DLunc/VA (ml/min/mmHg/L) 3.57 3.05 4.36 5.68 81 BHT (sec) 10.01 IVC (L) 2.69 PHYSICAL EXAM: BP 132/78 Pulse 79 Resp 16 SpO2 96% Deferred ASSESSMENT and RECOMMENDATIONS: 1. Screening for lung cancer: Six year risk for lung cancer: 8.38% [email or web address]://youtu.be/[email or web address] I have determined that the patient is eligible for a low dose CT based on age, absence of signs or symptoms of lung cancer, and total pack years: Yes. The patient and I engaged in shared decision making, including the use of one or more decision aids, to include benefits, harms, follow-up diagnostic testing, over-diagnosis, false positive rate, andtotal radiation exposure. The patient understands and feels comfortable with it: Yes. The patient was counseled on the importance of adherence to annual LDCT lung cancer screening, impact of comorbidities and ability or willingness to undergo diagnosis and treatment. The patient understands and feels comfortable with it:Yes. 2. Nicotine dependence: The patient was counseled on the importance of smoking cessation if currentsmoker and, if appropriate, offered additional tobacco cessation counseling services - Smoking Cessation Counseling. SMOKING CESSATION COUNSELING Smoking cessation methods including Nicotine Replacement Therapies and Behavior Modification were discussed with the patient and assistance offered. The medical conditions adversely affected by cigarette use include:COPD, Emphysema, and Lung Cancer. The patient is currently not ready to quit. I personally spent 3 minutes in counseling. The time spent in smoking cessation counseling is exclusive of any other counseling during this visit. Justyna Mora APRN.CNP NPI #: November 11, 2023 11:31 AM documented in this encounterUniversity Hospitals [facility]03-04-2024 Procedure note* Lucy Chandra RPFT - 11/11/2023 11:01 AM ESTAssociated Order(s): NITRIC OXIDE, EXHALED RESPIRATORY THERAPY ORAL EXHALED NITRIC OXIDE SERVICE DATE: 11/11/2023 SERVICE TIME: 11:02 AM Oral Exhaled Nitric Oxide measurement: 6.0 (ppb) Normal: Adult 5-20 ppb, pediatric (<12 years) 5-15 ppb High Normal / Increased: Adult 20-35 ppb, pediatric (<12 years) 15-25 ppb Moderately raised exhaled Nitric Oxide may indicate underlying inflammation, but note that: Cold and influenza can raise exhaled Nitric Oxide and some patients have higher baseline exhaled Nitric Oxide levels than others. High: Adult >35 ppb, pediatric (<12 years) >25 ppb Indicative of ongoing eosinophilic inflammation. Symptomatic patient likely to respond to steroids. Possible causes (if already on steroids): Poor compliance, recent allergen exposure, steroid dose inadequate, and steroid resistance. Note that not all patients with high exhaled nitric oxide levels display symptoms. Oral Exhaled Nitric Oxide measurement (Previous Encounters) Test Date Oral Exhaled Nitric Oxide (ppb) 11/11/2023 6.0 09/29/2021 5.0 NAME: MAVERICK Hines PATIENT NAME: Garland De Santiago DATE: November 11, 2023 TIME: 11:02 AM documented in this encounterUniversity Hospitals Beach[facility]03-04-2024 History of Present illness Narrative* Lucy Chandra RPFT - 11/11/2023 10:47 AM EST PULM FUNCTION SMARTBLOCK: Provider: Mona Corrigan MD Assisting Tech: Lucy Chandra RPFT Spirometry: 1 Exhaled Nitric Oxide: 1 documented in this encounterUniversity Hospitals [facility]03-01-2024 Miscellaneous Notes* Telephone Encounter - Nat Malik LPN - 11/08/2023 9:34 AM EST Patient has been identified by name and date of : Pharmacy phones for refill(s): Requested Prescriptions Pending Prescriptions Disp Refills gabapentin (NEURONTIN) 300 mg capsule 150 capsule 3 Sig: Take 2 capsules by mouth every morning AND 3 capsules every evening. Do all this for 120 days. fluticasone-vilanterol (BREO ELLIPTA) 200-25 mcg/dose inhaler 1 Each 5 Sig: Inhale 1 Inhalation as instructed once daily. Date of last office visit in primary care: 08/06/2023 Date of next office visit in primary care: 11/19/2023 Please advise. Thank you. Nat Malik LPN. documented in this encounterUniversity Hospitals [facility] Center02-27-2024 History of Present illness Narrative* Mona Corrigan MD - 11/05/2023 2:45 PM EST Images from the original note were not included. . [facility] [place] Note Patient name: Garland De Santiago PCP: Willam Estrada MD CC: Asthma HPI: Garland De Santiago 63 year old female current 19-zmba-tzed smoker with PMH significant for allergies, asthma, emphysema, DM2, HTN, YARY not using BiPAP presenting for follow-up visit. Current inhaled therapy consists of Breo Ellipta with albuterol as needed. Having more issues with her asthma. Over the past several months she has had increased SOB with chest tightness. Waking up at night with SOB after several hours of sleep. She has not recently been ill with URI. She has not been wearing her BiPAP for years. She has been compliant with use of her Breo Ellipta and has been using her albuterol MDI or nebulizer every day. She has felt fatigued, worn out. No EDS. DATA: PFT 04/2023: Small airways obstruction. Diffusion is normal. Imaging / Diagnostic Studies: DATE OF EXAM: May 28 2023 6:46PM WOX [id number] - XR CHEST 2V FRONTAL/LAT / CLINICAL HISTORY: Acute cough MQ: [id number] EXAM DATE/TIME: 05/28/2023 6:46 PM COMPARISON: 11/21/2022, and others RESULT: Lines, tubes, and devices: None. Lungs and pleura: Small left greater than right bilateral pleural effusions Cardiomediastinal silhouette: Normal cardiomediastinal silhouette. Bones and soft tissues: Unremarkable. IMPRESSION: Small bilateral pleural effusions. I reviewed images which shows bilateral effusions PAST MEDICAL HISTORY Diagnosis Date Allergic rhinitis, cause unspecified 02/10/2007 Anxiety Arthritis Asthma 02/10/2007 Centrilobular emphysema (HCC) Depression Psychiatrist managing (Dr. Bedolla) DM type 2 (diabetes mellitus, type 2) (HCC) Essential hypertension 05/23/2006 Hemorrhage of gastrointestinal tract, unspecified 12/13/2011 Had bleeding hemorrhoids in 2011; normal colonoscopy Internal hemorrhoids without mention of complication 12/13/2011 Mixed hyperlipidemia 05/23/2006 Obesity (BMI 30.0-34.9) YARY (obstructive sleep apnea) Uses BiPAP occasionally Other nonspecific abnormal finding 05/23/2006 CK Elevation Snoring ALLERGIES Allergen Reactions Cephalosporins Rash Dilaudid [Hydromorp* Mental Status Change Dust Mites Omnicef [Cefdinir] Hives Paxil [Paroxetine] Intolerance excessive sweating Penicillins Hives, Other: See Comments Any medication with penicillin in it. Had been given amoxicillin in 2011 and had reaction Given test dose of 2cc's on 08/17/2019 causing sever flushing along with hypotension Prednisone Intolerance Elevated BS, ER Prozac [Fluoxetine * Mental Status Change, Diarrhea Pseudoephedrine Intolerance Heart racing Vicodin [Hydrocodon* GI Upset albuterol HFA (VENTOLIN HFA) 90 mcg/actuation inhaler Inhale 2 Puffs as instructed every [address] (PROTONIX) 40 mg tablet Take 40 mg by mouth two times a day. lisinopril (ZESTRIL) 20 mg tablet Take 1 tablet by mouth two times a day. atenolol (TENORMIN) 50 mg tablet Take 1 tablet by mouth once daily. May also take 0.5-1 tablets once daily as needed (for blood pressure over 180/120). ALPRAZolam (XANAX) 0.5 mg tablet Take 1 tablet by mouth at bedtime as needed for up to 120 days. Donot start before August 08, 2023. gabapentin (NEURONTIN) 300 mg capsule Take 2 capsules by mouth every morning AND 3 capsules every evening. Do all this for 120 days. blood sugar diagnostic (TRUE METRIX GLUCOSE TEST STRIP) test strip Test blood sugars twice a day DX: E11.65 Insulin: No Use as instructed Nebulizer and Compressor For Neb Use for albuterol and ipratropium nebulizer treatments every 4 hours as needed ibuprofen (MOTRIN) 600 mg tablet Take 1 tablet by mouth every 12 hours. busPIRone (BUSPAR) 15 mg tablet Take 0.5 tablets by mouth twice daily. furosemide (LASIX) 20 mg tablet Take 1 tablet by mouth once daily. fluticasone (FLONASE) 50 mcg/actuation nasal spray Use 2 Sprays in each nostril once daily. Rinse mouth after use. gemfibrozil (LOPID) 600 mg tablet Take 1 tablet by mouth twice daily. metFORMIN ER (GLUCOPHAGE XR) 500 mg 24 hr tablet Take 1 tablet by mouth twice daily before meals. sertraline (ZOLOFT) 100 mg tablet Take 2 tablets by mouth once daily. traZODone (DESYREL) 100 mg tablet Take 1 tablet by mouth daily at bedtime. ursodiol (ACTIGALL) 300 mg capsule Take 300 mg by mouth twice daily. albuterol (PROVENTIL) 2.5 mg /3 mL (0.083 %) nebulizer solution Use 3 mL via nebulizer every 4 hours as needed for wheezing/shortness of breath. potassium chloride (K-TAB) 10 mEq tablet Take 1 tablet by mouth daily with breakfast. fluticasone-vilanterol (BREO ELLIPTA) 200-25 mcg/dose inhaler Inhale 1 Inhalation as instructed once daily. glipiZIDE (GLUCOTROL) 5 mg tablet Take 1 tablet by mouth once daily. May take extra half to whole pill daily as needed for blood sugar over 200 (Patient taking differently: Take 5 mg by mouth once daily. May take extra half to whole pill daily as needed for blood sugar over 200 Takes if Blood Sugar over 200 but not daily otherwise) ipratropium (ATROVENT) 0.02 % nebulizer solution Use 2.5 mL via nebulizer four times daily. Unit dose pack of 50 (Patient taking differently: Use 0.5 mg via nebulizer four times daily. Unit dose packof 50 As needed) Vitamin E, dl, acetate, (VITAMIN E) 400 unit capsule Take 800 Units by mouth once daily. Lancets lancets Test blood sugar(s) 2 times daily. Dx: Type 2 DM - Uncontrolled E11.65 Insulin: No ketoconazole (NIZORAL) 2 % cream Apply 1 application to affected area once daily. (Patient taking differently: Apply 1 application to affected area once daily. As needed) Blood-Glucose Meter monitoring kit Insurance covered or per patient choice. Test blood sugar twice daily plus as needed for symptoms of blood sugars being too high or low. Dx: Type 2 DM - Uncontrolled E11.65 Insulin:No xpzvtm-bzqsoken-ujwhnrs (CREON 24) 24,000-76,000 -120,000 unit delayed release capsule Take 1 capsule by mouth with meals. With snacks and meals (Patient not taking: Reported on 11/05/2023) Nebulizer NEBULIZER FOR HOME USE. DX: J45.42 BIPAP Initiate BiPAP @ 20/14 cm of water with heated humidification. Ti Max 1.0, Ti Min 0.3, trigger medium, cycle high. Mask (medium AirFit F10 full face mask or per patient preference) optional chin strap (if indicated) , filters, tubing, humidifier and lifetime supplies. (Patient not taking: Reported on 11/05/2023) Social History Tobacco Use Smoking status: Every Day Packs/day: 1.50 Years: 36.00 Additional pack years: 0.00 Total pack years: 54.00 Types: Cigarettes Smokeless tobacco: Never Tobacco comments: Working on smoking cessation. Trying every day to quit but not happening yet. Still working--1PPD (April 03, 2023) Vaping Use Vaping Use: Never used Substance Use Topics Alcohol use: No Drug use: No FAMILY HISTORY Problem Relation Age of Onset Hypertension Mother history of glaucoma Cervical Cancer Mother Asthma Mother Heart Father [place] x 2 Cancer Father Lung, metastatic to bone, age 77 other (aortic aneurysm) Father 50 Colon Polyps Sister Thyroid Sister Hypothyroidism Thyroid Sister Cancer Sister Lung, LLL. Resected. No Known Problems Daughter No Known Problems Son PAST SURGICAL HISTORY Procedure Laterality Date ADENOIDECTOMY PRIMARY <AGE 12 Adenoidectomy ANTERIOR COLPORRAPHY RPR CYSTOCELE W/CYSTO Cystocele repair APPENDECTOMY APPENDECTOMY HX ARTHRP KNE CONDYLE&PLATU MEDIAL&LAT COMPARTMENTS 07/10/2015 right BACK SURGERY HX COLONOSCOPY 02/22/2022 COLONOSCOPY FLX DX W/COLLJ SPEC WHEN PFRMD 12/13/2011 Colonoscopy repeat 10 years EGD W/O [facility] SPEC VARICIES INJ 02/22/2022 ESOPHAGOGASTRODUODENOSCOPY TRANSORAL DIAGNOSTIC 02/09/2016 EGD INCISE FINGER TENDON SHEATH Right 08/10/2021 Right ring trigger finger release JOINT REPLACEMENT HX LAPS ABD PRTM&OMENTUM DX W/WO SPEC BR/WA SPX Laparoscopy LAPS SURG CHOLECYSTECTOMY W/CHOLANGIOGRAPHY 10/07/2006 LIG/TRNSXJ FLP TUBE ABDL/VAG APPR UNI/BI Tubal ligation PAST SURGICAL HISTORY OF 06/22/2010 right knee arthroscopy- by Dr Dawson ([facility]) PAST SURGICAL HISTORY OF 04/27/2020 low back surgery at [facility];s/p L4 laminectomy, decompression of L4-5 canal stenosis with bilateral L4,L5 root foraminotomies TONSILLECTOMY PRIMARY/SECONDARY <AGE 12 Tonsillectomy VAGINAL HYSTERECTOMY UTERUS 250 GM/< Hysterectomy, vaginal for menorrhagia PMH, Social history, family history and surgical history reviewed and updated in EMR REVIEW OF SYSTEMS: CONSTITUTIONAL: No fevers, chills, nightsweats, unintended weight loss HEENT: Denies nasal congestion/sinus symptoms, problematic allergy problems. CARDIOVASCULAR: No chest pain, palpitations, orthopnea, PND, edema. PULM: See PHI GI: No dysphagia/odynophagia, problematic reflux PSY: No concerns regarding depression, anxiety INTEGUMENTARY: No new skin changes or rashes PHYSICAL EXAMINATION: BP 134/88 Pulse 84 Temp (Src) 97.6 (Temporal) Ht 5' 6 (1.68m) Wt 199 lb 9.6 oz (90.5kg) SpO2 97% BMI 32.23 kg/(m^2). General Appearance: Obese female, mildly anxious. Skin: Skin color, texture, turgor normal, no suspicious rashes or lesions. Head: Normocephalic, no masses, lesions, tenderness or abnormalities. Eyes: Sclera, conjunctiva normal. Oropharynx: No oral lesions or thrush. Neck: No JVD, no masses, no adenopathy. Lungs: Not labored, normal to percussion, diminished breath sounds. Heart: RRR, no murmur. Extremities: No edema, no clubbing. Assessment/Plan: Asthma with COPD with exacerbation -Continue Breo Ellipta with albuterol -She will consistently wear her BiPAP. If no improvement in symptoms will need to increase therapy -Update Basia and PFT -Smoking cessation recommended Cigarette smoker -Smoking cessation strongly encouraged -Lung cancer screening YARY -Needs to be compliant with BiPAP -May need Sleep referral/repeat titration study Mona Corrigan MD [facility] [place] documented in this encounterUniversity Hospitals [facility]01-12-2024 Discharge summary Author Jono Castro [facility] September 20, 2023 7:39pm Note Date/Time September 20, 2023 6 :10pm [facility] Medical Records Department [address] [place] [address] Emergency Department Summary 09/20/23 MR#: [id number] Acct: [id number] Name: GARLAND DE SANTIAGO Rep #:[id number] : 1960 63 From: Jono Castro MD PCP: Dr. Willam Estrada MD Status:RE G ER Location: ED HPI History of Present Illness Chief Complaint: Headache Informant: patient Narrative Narrative: Patient presents with headache. Patient states she did have a fall at the end of July. She did hit the right side of her head and face. But she did not lose consciousness. She states she was not really having a lot of symptoms then. Somewhere toward the middle of August on about the she started to get nasal congestion. She states she was congested and could not breathe through her nose. She started toget some pressure in her face behind both eyes. It was not sudden onset or thunderclap. It was not severe. She had been seen at urgent care where they treated her as sinusitis with doxycycline but there is no change in her symptoms. She states the headache is more now on the right frontal area. Thereis 1 spot that she can find and press that is tender. This is superior and anterior to the temporal artery. But there is no skin changes. She has never had any neurologic deficits. No nausea vomiting. She has had headaches occasionally but does not get them regularly. She normally gets sinus pressure type headaches which is what she thought this was but is just not going away. She has never had fever with it. Gait is normal. Coordination is normal. [facility] Medical History Abdominal pain Anxiety Anxiety and depression Arthritis BiPAP (biphasic positive airway pressure) dependence Bladder disease Cardiology follow-up encounter COPD (chronic obstructive pulmonary disease) Depression Diabetes Diarrhea Dietary restriction Elevated CPK Fatty liver Gastric reflux Hemorrhage of gastrointestinal tract History of echocardiogram History of hiatal hernia History of stress test Hypertension Mixed hyperlipidemia YARY treated with BiPAP Osteoarthritis Postoperative anemia Sleep apnea Smoker Type 2 diabetes mellitus Wears dentures Wears partial dentures Home Medications gemfibrozil 600 mg tablet 600 mg PO BID 06/13/14 [History Last Taken 07/19/15 600 MG] trazodone 100 mg tablet 100 mg PO QHS 06/13/14 [History Last Taken 07/19/15 100 MG] alprazolam 0.5 mg tablet 0.5 mg PO QHS ANXIETY 07/30/15 [History Last Taken 2 Weeks Ago ~07/16/15 2 TABS] lisinopril 20 mg tablet 20 mg PO DAILY #30 TABLETS 08/02/15 [Rx Last Taken 07/01/23 05:30] albuterol sulfate 90 mcg/actuation aerosol inhaler (Ventolin HFA) 1 - 2 puff inhalation Q4H PRN PRN Wheezing ##1 08/08/15 [Rx Last Taken Unknown] furosemide 20 mg tablet 20 mg PO DAILY 09/26/15 [History Last Taken Unknown] buspirone 5 mg tablet 7.5 mg PO BID 07/11/18 [History Last Taken 07/01/23 05:30] metformin 500 mg tablet,extended release 24 hr 500 mg PO BID 07/11/18 [History Last Taken Unknown] potassium chloride 10 mEq tablet,extended release(part/cryst) 10 meq PO DAILY 07/11/18 [History Last Taken Unknown] sertraline 100 mg tablet (Zoloft) 200 mg PO QHS 07/11/18 [History Last Taken Unknown] fluticasone furoate 100 mcg-vilanterol 25 mcg/dose inhalation powder 1 ea IH DAILY 07/29/19 [History Last Taken Unknown] ipratropium bromide 0.02 % solution for inhalation 2.5 ml inhalation Q6H PRN shortness of breath or wheezing #75 mL 08/21/21 [Rx Last Taken Unknown] albuterol sulfate 2.5 mg/3 mL (0.083 %) solution for nebulization 2.5 mg inhalation Q4H PRN shortness of breath 11/15/21 [History Last Taken Unknown] atenolol 50 mg tablet 50 mg PO DAILY 11/15/21 [History Last Taken 07/01/23 05:30] cetirizine 10 mg tablet 10 mg PO DAILY PRN ALLERGIES 11/15/21 [History Last Taken Unknown] gabapentin 300 mg capsule (Neurontin) 600 mg PO .COMPLEX 11/15/21 [History Last Taken Unknown] ibuprofen 600 mg tablet 600 mg PO BID 11/15/21 [History Last Taken Unknown] ketoconazole 2 % topical cream 1 applic topical DAILY 11/15/21 [History Last Taken Unknown] fluticasone propionate 50 mcg/actuation nasal spray,suspension (Allergy Relief (fluticasone)) 2 spray intranasal DAILY 01/04/22 [History Last Taken Unknown] glimepiride 4 mg tablet 4 mg PO DAILY PRN glucose >200 01/04/23 [History Last Taken Unknown] ursodiol 300 mg capsule 300 mg PO BID #60 caps 03/26/23 [Rx Last Taken Unknown] vitamin E mixed 400 unit capsule 800 unit (2 x 400 unit) PO DAILY #60 caps 03/26/23 [Rx Last Taken Unknown] hydroxyzine pamoate 25 mg capsule 25 mg PO TID PRN PRN itching #30 CAPSULES 05/30/23 [Rx Last Taken Unknown] pantoprazole 40 mg tablet,delayed release (Protonix) 40 mg PO BID #60 tabs 07/08/23 [Rx Last Taken Unknown] ajumhv-nhhazelk-ekpcenz 24,000-76,000-120,000 unit capsule,delayed rel (Creon) 1cap PO TID #90 caps 07/26/23 [Rx Last Taken Unknown] sucralfate 1 gram tablet 1 g PO BID #60 tabs 08/26/23 [Rx Last Taken Unknown] Allergy/AdvReac Type Severity Reaction Status Date / Time Cephalosporins Allergy Intermediate Rash Verified 09/20/23 17:04 hydromorphone [From Dilaudid] Allergy Intermediate Altered Verified 09/20/23 17:04 mental status pseudoephedrine Allergy Intermediate Tachycardia Verified 09/20/23 17:04 fluoxetine [From Prozac] Allergy Chest Verified 09/20/23 17:04 tightness house dust mite Allergy NEEDS Verified 09/20/23 17:04 FOLLOW-UP hydrocodone [From Vicodin] Allergy Upset Verified 09/20/23 17:04 Stomach Penicillins Allergy Hives Verified 09/20/23 17:04 prednisone AdvReac PT UNABLE Verified 09/20/23 17:04 TO RESPOND-NEEDS F/U Family History Mother Glaucoma Cervical cancer Asthma Father , at 77 Myocardial infarction Cancer Lung, metastatic to bone CAD (coronary artery disease) History of coronary artery bypass surgery Aortic aneurysm and dissection Sister Colon polyp Thyroid disorder Lung cancer Surgical History H/O vaginal hysterectomy History of appendectomy History of back surgery History of bladder suspension procedure History of lumbar laminectomy History of total right knee replacement Hx of cholecystectomy Hx of tonsillectomy S/P total knee arthroplasty Tubal ligation status Social History household members: none housing: apartment Smoking Status: Current every day smoker tobacco type: cigarettes alcohol intake: never substance use type: does not use caffeine: Yes Type: carbonated beverages Number of servings: 2 ROS ROS ED ROS Narrative A complete review of systems was performed and is negative except as documented in the history of present illness. Some specific details below. Constitutional: No recent fevers or chills. No rigors. Patient has not generallyfelt ill. EYE: No discharge, visual complaints, or pain. No pain with looking left right upper down. ENT: No difficulty swallowing. No swelling. No sinus pressure or pain. No nasal discharge. No change in hearing. No ear pain. She has a tender area on the sideof her head. CV: No chest pain, pressure or aching. No palpitations or irregular beats. Patient has not been presyncopal or syncopal. Respiratory: No trouble breathing. No cough. No wheezing. No sputum production. No pain with breathing. GI: No abdominal pain. No nausea vomiting at any time and no diarrhea. No blood in stool. : No frequency dysuria or hematuria. No difficulty starting or stopping Musculoskeletal: No recent trauma. No pains. No swelling. Skin: No rash. No diaphoresis. Neuro: No weakness or numbness. No difficulty with speaking. No difficulty understanding speech. No visual loss. Endocrine: No polyuria or polydipsia. EXAM Physical Exam Narrative Exam Narrative: CONSTITUTIONAL: Patient is nontoxic in appearance. The patient looks comfortable. She gives a clear consistent history. HEENT: No notable trauma. Mucous membranes moist. No sinus tenderness. Tympanic membranes are normal. No temporal artery tenderness. She does have an area morein superior and anterior to the temporal artery where there is a little tenderness. This seems to reproduce a lot of her symptoms. But there are no skin changes there. There is no lymph node. There is no sign of any abnormality visually. I do not feel any lumps or bumps. No facial rashes or swelling. She has no drainage from the nose. EYES: No conjunctival injection. No proptosis. No pain with range of motion. Funduscopic exam shows no marked abnormalities. No pain with range of motion NECK: No meningismus. No JVD. Range of motion is normal looking up down left andright without discomfort. CARDIOVASCULAR: Regular rate. Regular rhythm. No notable murmur. No JVD. RESPIRATORY: No respiratory distress. Breathing is unlabored. No wheezes. No rhonchi. No rales. No pain with a deep breath. GASTROINTESTINAL: Not distended. Bowel sounds are normal. No tenderness. No guarding. No rebound. No palpable mass. No bruit. GENITOURINARY: No tenderness over the bladder. No CVA tenderness. MUSCULOSKELETAL: Atraumatic. No peripheral edema. No cord. No tenderness along the deep venous system. No asymmetry. NEUROLOGICAL: Patient is alert and oriented. No focal deficit noted. NIH stroke scale is 0. SKIN: No noted rashes. No diaphoresis. No vesicles noted. PSYCHIATRIC: Patient is calm. Mood is appropriate. Const Vital Signs: 09/20/23 17:05 09/20/23 17:08 Temperature 96.9 F L 96.9 F L Temperature Source Temporal Temporal Pulse Rate 87 87 Respiratory Rate 16 16 Blood Pressure 178/104 H 178/104 H Blood Pressure Mean 128 128 Pulse Ox 96 96 Oxygen Delivery Method Room Air Room Air MDM MDM MDM Narrative Medical decision making narrative: My independent interpretation of the patient's CT of the head shows no acute process and final reading is similar. Radiology also read CTA and sinus films. No angiographic abnormality. Sinuses some mild mucosal thickening. Patient CBC is normal. Patient's metabolic panel is normal. Patient's glucose is minimally up at 163. Patient's ESR is normal at 8. I think patient's exam history and negative/low ESR effectively rule out significant temporal arteritis. I do not think patient needs a lumbar puncture. She is happy that everything is negative. She is comfortable managing her headache at home. She was more getting worried that it was something more serious. Lab Data Attestation: I reviewed the patient's lab results. Labs: Laboratory Results - last 24 hr 09/20/23 17:50 WBC 9.6 RBC 5.24 Hgb 14.9 Hct 43.7 MCV 83.4 MCH 28.4 MCHC 34.1 RDW Std Deviation 42.4 RDW Coeff of Rodrigo 14.0 Plt Count 312 MPV 9.7 Immature Gran % (Auto) 0.400 Neut % (Auto) 54.3 Lymph % (Auto) 36.5 Tate % (Auto) 5.8 Eos % (Auto) 2.4 Baso % (Auto) 0.6 Absolute Neuts (auto) 5.2 Absolute Lymphs (auto) 3.50 Nucleated RBC % 0 ESR 8 Sodium 140 Potassium 3.6 Chloride 105 Carbon Dioxide 28.0 Anion Gap 7 BUN 11 Creatinine 0.56 Estim Creat Clear Calc 117.10 Est GFR (MDRD) Af Amer 139 Est GFR (MDRD) Non-Af 115 BUN/Creatinine Ratio 19.5 Glucose 163 H Calcium 9.1 Radiography Diagnostic Testing: Clinical Impression(s) from Imaging Studies Facial/Sinus 09/20/23 18:35 IMPRESSION: Minimal mucosal thickening in the ethmoid sinuses No fracture or suspicious osseous lesion Electronically Signed: Johnny Saucedo MD at 18:58 EST Reading Location ID and State: [facility] / [place] , Service support , Head CTA 09/20/23 18:35 IMPRESSION: Age consistent changes, no acute findings, no suspicious enhancing lesion Electronically Signed: Johnny Sacuedo MD at 18:59 EST , Discharge Plan Triage Chief Complaint: Headache ED Provider: Jono Castro Dx/Rx/DC Orders Clinical Impression: Headache Instructions: ED Headache Unspecified Prescriptions: No Action fluticasone propionate [Allergy Relief (fluticasone)] 50 mcg/actuation spray,suspension 2 spray intranasal DAILY Rx Instructions: administer into each nostril albuterol sulfate 2.5 mg /3 mL (0.083 %) solution for nebulization 2.5 mg inhalation Q4H PRN (Reason: shortness of breath) ketoconazole 2 % cream 1 applic topical DAILY ibuprofen 600 mg tablet 600 mg PO BID cetirizine 10 mg tablet 10 mg PO DAILY PRN (Reason: ALLERGIES) atenolol 50 mg tablet 50 mg PO DAILY glimepiride 4 mg tablet 4 mg PO DAILY PRN (Reason: glucose >200) sucralfate 1 gram tablet 1 g PO BID Qty: 60 0RF trazodone 100 MG tablet 100 mg PO QHS Patient Comments: Mood/anti-anxiety gemfibrozil 600 MG tablet 600 mg PO BID Patient Comments: Cholesterol alprazolam 0.5 MG tablet 0.5 mg PO QHS Patient Comments: anti-anxiety TAKES 2 TABS OF 0.5MG @ HS lisinopril 20 MG tablet 20 mg PO DAILY Qty: 30 0RF albuterol sulfate [Ventolin HFA] 1 INHALER inhaler 1 - 2 puff inhalation Q4H PRN PRN (Reason: Wheezing) Qty: 1 0RF furosemide 20 MG tablet 20 mg PO DAILY Patient Comments: buspirone 5 MG tablet 7.5 mg PO BID Patient Comments: anti-anxiety sertraline [Zoloft] 100 MG tablet 200 mg PO QHS metformin 500 MG tablet 500 mg PO BID potassium chloride 10 MEQ tablet 10 meq PO DAILY gabapentin [Neurontin] 300 mg capsule 600 mg PO .COMPLEX Rx Instructions: 600 mg PO take 2 caps in the am and 3 caps in the evening; fluticasone furoate-vilanterol 1 EACH blister with device 1 ea IH DAILY ipratropium bromide 0.02 % solution 2.5 ml inhalation Q6H PRN (Reason: shortness of breath or wheezing) Qty: 75 2RF hydroxyzine pamoate [hydroxyzine pamoate] 25 mg capsule 25 mg PO TID PRN PRN (Reason: itching) Qty: 30 0RF ursodiol 300 mg capsule 300 mg PO BID Qty: 60 11RF vitamin E mixed 400 unit capsule 800 unit PO DAILY Qty: 60 11RF pantoprazole [Protonix] 40 mg tablet,delayed release (DR/EC) 40 mg PO BID Qty: 60 2RF Creon 24,000-76,000 -120,000 unit capsule,delayed release(DR/EC) 1 cap PO TID Qty: 90 11RF Rx Instructions: administer with meals and/or snacks Primary Care Provider: Willam Estrada Referrals: Willam Estrada, [Primary Care Provider] - 1 Week if not improving Disposition Disposition: Home, Self Care What to do if you have Problems For any increased pain, shortness of breath, bleeding, nausea or vomiting, chestpain, or any unexpected problems, contact your Primary Care Provider. Call [facility] ([phone]) or report to the closest Emergency Room. Call 911 if necessary. 09/20/231938 <Electronically signed by Jono Castro MD> Cosigner Signature (if applicable): CC: Dr. Willam Estrada MD ~ Signed [facility] Work Phone: 1(426) 499-689701-04-2024 Telephone encounter Note* Telephone Encounter - Karissa Armstrong - 09/12/2023 9:43 AM EST 3 rd attempt left message to return call to schedule consult for lung cancer screening. My chart message also sent [facility]01-04-2024 Miscellaneous Notes* Telephone Encounter - Karissa Armstrong - 09/12/2023 9:43 AM EST 3 rd attempt left message to return call to schedule consult for lung cancer screening. My chart message also sent * Telephone Encounter - Heather Giang - 09/10/2023 11:19 AM EST 2nd Attempt to call and schedule. LVM * Telephone Encounter - Karissa Armstrong - 09/06/2023 12:00 PM EST 1st attempt left message to return call to schedule consult for lung cancer screening * Telephone Encounter - Maria R Baig RN - 09/03/2023 10:08 AM EST Called and left VM informing the patient that we have the order and asking her to call back and schedule an appointment. Maria R Baig, RN * Telephone Encounter - Tran Mcfadden LPN - 09/03/2023 8:44 AM EST Images from the original note were not included. Justyna Mora APRN.PARTS DEPARTMENT MANAGER You 4 days ago MH I placed an order for consult lung cancer screening. Please metal building assembler her for that. She has not been seen by our team. We will do an enrollment visit and then if she qualifies we will schedule her for her LDCT at a later time. Angela Morataya * Telephone Encounter - Yasmine Arias - 08/30/2023 3:26 PM EST Patient verified by name and . She will need an order placed to be able to schedule. Review and advise. * Telephone Encounter - Tran Mcfadden LPN - 08/30/2023 3:15 PM EST Called patient. Verified name and date of . Patient informed per message from Leila Rubi PA-C. Verbalizes understanding. Does want to have done here at [facility]. Possibly need order to schedule? Transferred to scheduling. Tran Mcfadden LPN * Telephone Encounter - Vikki Oliveira MA - 08/30/2023 12:34 PM EST Images from the original note were not included. Leila Rubi PA-C This may be done at [facility]. Is she enrolled in the lung cancer screening program at [facility]? If so, they will order the LDCT. * Telephone Encounter - Yasmine Arias - 08/30/2023 10:31 AM EST Patient verified by name and . She is requesting an order be faxed to [facility] for her to schedule her yearly low dose lung cancer screening CT. Review and advise. documented in this encounter[facility] Telephone encounter Note * Telephone Encounter - Heather Giang - 09/10/2023 11:19 AM EST 2nd Attempt to call and schedule. LVM [facility]12-29-2023 Telephone encounter Note* Telephone Encounter - Karissa Armstrong - 09/06/2023 12:00 PM EST 1st attempt left message to return call to schedule consult for lung cancer screening [facility]12-26-2023 Telephone encounter Note* Telephone Encounter - Maria R Baig, HOWARD - 09/03/2023 10:08 AM EST Called and left VM informing the patient that we have the order and asking her to call back and schedule an appointment. Maria R Baig RN [facility]12-26-2023 Telephone encounter Note* Telephone Encounter - Tran Mcfadden LPN - 09/03/2023 8:44 AM EST Images from the original note were not included. Justyna Mora APRN.PARTS DEPARTMENT MANAGER You 4 days ago MH I placed an order for consult lung cancer screening. Please metal building assembler her for that. She has not been seen by our team. We will do an enrollment visit and then if she qualifies we will schedule her for her LDCT at a later time. Angela Justyna [facility]12-22-2023 Telephone encounter Note* Telephone Encounter - Yasmine Arias - 08/30/2023 3:26 PM EST Patient verified by name and . She will need an order placed to be able to schedule. Review and advise. [facility]12-22-2023 Telephone encounter Note* Telephone Encounter - Tran Mcfadden LPN - 08/30/2023 3:15 PM EST Called patient. Verified name and date of . Patient informed per message from Leila Rubi PA-C. Verbalizes understanding. Does want to have done here at [facility]. Possibly need order to schedule? Transferred to scheduling. Tran Mcfadden LPN [facility]12-22-2023 Telephone encounter Note* Telephone Encounter - Vikki Oliveira MA - 08/30/2023 12:34 PM EST Images from the original note were not included. Leila Rubi PA-C This may be done at [facility]. Is she enrolled in the lung cancer screening program at [facility]? If so, they will order the LDCT. [facility]12-22-2023 Telephone encounter Note* Telephone Encounter - Yasmine Arias - 08/30/2023 10:31 AM EST Patient verified by name and . She is requesting an order be faxed to [facility] for her to schedule her yearly low dose lung cancer screening CT. Review and advise. [facility]12-01-2023 Miscellaneous Notes* Telephone Encounter - Ashley Hernandez RN - 08/09/2023 10:12 AM EST Date of last office: 08/06/2023 Date of next office visit: 11/19/2023 Requested Prescriptions Pending Prescriptions Disp Refills albuterol HFA (VENTOLIN HFA) 90 mcg/actuation inhaler 18 g 3 Sig: Inhale 2 Puffs as instructed every 4 hours as needed. Date of Last Labs: 06/08/2023 Please advise. Thank you. Ashley Hernandez RN. documented in this encounterUniversity [facility]11-14-[facility]23 History of Present illness Narrative* Jennifer Castle RT(R) - 07/23/2023 5:00 PM EST Radiology Service Progress Note PATIENT NAME: Garland De Santiago DATE OF SERVICE: July 23, 2023 TIME: 4:52 PM PATIENT IDENTITY VERIFICATION COMPLETED USING TWO (2) IDENTIFIERS: Name and Date of confirmedby patient verbally. FALL SCREENING: Has the patient had 2 falls in the last year or 1 fall with injury or currently using an Ambulatory Assistive Device (Walker, Cane, Wheelchair, Crutches, etc.)? No PATIENT GENDER DATA: Female. status: : No status: NO. PATIENT RELEVANT IMPLANT DATA REVIEWED: Yes RADIOLOGY DEPARTMENT: General X-ray: Exam(s) Completed: Upper Extremity X- Ray(s): Shoulder, AP / TRUE AP / AXILLARY right PERIPHERAL IV DATA: Not applicable SIGNED BY: RT Andrea(R) July 23, 2023 4:52 PM documented in this encounterUniversity [facility]als [facility]11-14-2023 History of Present illness Narrative* Willam Estrada MD - 07/23/2023 3:43 PM EST This note was created using NoteWriter. Subjective Garland De Santiago is a 63 year old female. Patient presents with: Established Patient: Multiple concerns SUBJECTIVE: Garland De Santiago is a 63 year old year old lady here today for follow up appointment for review ofmedical conditions. Has had throbbing headache past several days. Waxes and wanes. Woke up with pounding headache this AM and BP was 203/112. BP log was 150 to 190s since last Saturday. Was instructed to take extra lisinopril on Saturday so took extra till yesterday. No racing heart issues. No aura and no nausea or vomiting. Today did not take extra lisinopril at lunch today. Noted blood sugars running higher over 200s fasting or 90 minutes at least after eating. Has been taking extra glipizide as needed for the high sugars. Watching diet. Friend added Protonix 40 mg twice daily. Also on Creon 1 to 2 with eating. Reviewed already had COVID. Knee pain--follows with orthopedist. Looking for home on ground level. [facility] who ahd done surgery before. Right shoulder pain and knot posterior shoulder area. Started hurting past 4 days. Also hurts in the AC joint area and cracks. Tender over rotator cuff. See assessment and plan for other issues addressed. PAST MEDICAL HISTORY Diagnosis Date Allergic rhinitis, cause unspecified 02/10/2007 Anxiety Arthritis Asthma 02/10/2007 Centrilobular emphysema (HCC) Depression Psychiatrist managing (Dr. Bedolla) DM type 2 (diabetes mellitus, type 2) ([facility]) Essential hypertension 05/23/2006 Hemorrhage of gastrointestinal tract, unspecified 12/13/2011 Had bleeding hemorrhoids in 2012; normal colonoscopy Internal hemorrhoids without mention of complication 12/13/2011 Mixed hyperlipidemia 05/23/2006 Obesity (BMI 30.0-34.9) YARY (obstructive sleep apnea) Uses BiPAP occasionally Other nonspecific abnormal finding 05/23/2006 CK Elevation Snoring Current Outpatient Medications Medication Sig midhja-brkzoubk-qmzpwte (CREON 24) 24,000-76,000 -120,000 unit delayed release capsule Take 1 capsule by mouth with meals. With snacks and meals pantoprazole (PROTONIX) 40 mg tablet Take 40 mg by mouth two times a day. [START ON 08/08/2023] ALPRAZolam (XANAX) 0.5 mg tablet Take 1 tablet by mouth at bedtime as needed for up to 120 days. Do not start before August 08, 2023. gabapentin (NEURONTIN) 300 mg capsule Take 2 capsules by mouth every morning AND 3 capsules every evening. Do all this for 120 days. blood sugar diagnostic (TRUE METRIX GLUCOSE TEST STRIP) test strip Test blood sugars twice a day DX: E11.65 Insulin: No Use as instructed Nebulizer and Compressor For Neb Use for albuterol and ipratropium nebulizer treatments every 4 hours as needed ibuprofen (MOTRIN) 600 mg tablet Take 1 tablet by mouth every 12 hours. atenolol (TENORMIN) 50 mg tablet Take 1 tablet by mouth once daily. busPIRone (BUSPAR) 15 mg tablet Take 0.5 tablets by mouth twice daily. furosemide (LASIX) 20 mg tablet Take 1 tablet by mouth once daily. fluticasone (FLONASE) 50 mcg/actuation nasal spray Use 2 Sprays in each nostril once daily. Rinse mouth after use. gemfibrozil (LOPID) 600 mg tablet Take 1 tablet by mouth twice daily. metFORMIN ER (GLUCOPHAGE XR) 500 mg 24 hr tablet Take 1 tablet by mouth twice daily before meals. sertraline (ZOLOFT) 100 mg tablet Take 2 tablets by mouth once daily. traZODone (DESYREL) 100 mg tablet Take 1 tablet by mouth daily at bedtime. ursodiol (ACTIGALL) 300 mg capsule Take 300 mg by mouth twice daily. albuterol (PROVENTIL) 2.5 mg /3 mL (0.083 %) nebulizer solution Use 3 mL via nebulizer every 4 hours as needed for wheezing/shortness of breath. potassium chloride (K-TAB) 10 mEq tablet Take 1 tablet by mouth daily with breakfast. lisinopril (ZESTRIL) 20 mg tablet Take 1 tablet by mouth once daily. (Patient taking differently: Take 40 mg by mouth once daily.) fluticasone-vilanterol (BREO ELLIPTA) 200-25 mcg/dose inhaler Inhale 1 Inhalation as instructed once daily. glipiZIDE (GLUCOTROL) 5 mg tablet Take 1 tablet by mouth once daily. May take extra half to whole pill daily as needed for blood sugar over 200 (Patient taking differently: Take 5 mg by mouth once daily. May take extra half to whole pill daily as needed for blood sugar over 200 Takes if Blood Sugar over 200 but not daily otherwise) ipratropium (ATROVENT) 0.02 % nebulizer solution Use 2.5 mL via nebulizer four times daily. Unit dose pack of 50 (Patient taking differently: Use 0.5 mg via nebulizer four times daily. Unit dose packof 50 As needed) albuterol HFA (VENTOLIN HFA) 90 mcg/actuation inhaler Inhale 2 Puffs as instructed every 4 hours asneeded. Vitamin E, dl, acetate, (VITAMIN E) 400 unit capsule Take 800 Units by mouth once daily. lipase/protease/amylase (CREON ORAL) Take by mouth. Dr. Caceres, unsure of dose Lancets lancets Test blood sugar(s) 2 times daily. Dx: Type 2 DM - Uncontrolled E11.65 Insulin: No ketoconazole (NIZORAL) 2 % cream Apply 1 application to affected area once daily. (Patient taking differently: Apply 1 application to affected area once daily. As needed) Blood-Glucose Meter monitoring kit Insurance covered or per patient choice. Test blood sugar twice daily plus as needed for symptoms of blood sugars being too high or low. Dx: Type 2 DM - Uncontrolled E11.65 Insulin:No Nebulizer NEBULIZER FOR HOME USE. DX: J45.42 atenolol (TENORMIN) 50 mg tablet Take 1/2 tablet now times one famotidine (PEPCID) 40 mg tablet Take 1 tablet by mouth twice daily. sucralfate (CARAFATE) 1 gram tablet Take 1 tablet by mouth three times daily before meals. (Patientnot taking: Reported on 05/31/2023) albuterol HFA (PROAIR HFA) 90 mcg/actuation inhaler Inhale 2 Puffs as instructed every 4 hours as needed for wheezing/shortness of breath. (Patient not taking: Reported on 07/23/2023) cholecalciferol, vitamin D3, 10 mcg (400 unit) cap Take 1 capsule by mouth once daily. (Patient nottaking: Reported on 05/31/2023) BIPAP Initiate BiPAP @ 20/14 cm of water with heated humidification. Ti Max 1.0, Ti Min 0.3, trigger medium, cycle high. Mask (medium AirFit F10 full face mask or per patient preference) optional chin strap (if indicated) , filters, tubing, humidifier and lifetime supplies. (Patient not taking: Reported on 07/23/2023) No current facility-administered medications for this visit. Review of Systems Objective BP 132/78 Pulse 70 Temp 37.1 C (98.8 F) Resp 18 Wt 90.7 kg (200 lb) SpO2 98% BMI 32.28 kg/m Last 5 Encounter Wt Readings: Date: Wt: 07/23/2023 90.7 kg (200 lb) 05/31/2023 90.3 kg (199 lb) 05/28/2023 90.5 kg (199 lb 9.6 oz) 05/24/2023 91.2 kg (201 lb) 05/20/2023 92.1 kg (203 lb) No waist measurement recorded Estimated body mass index is 32.28 kg/m as calculated from the following: Height as of 04/24/23: 167.6 cm (5' 6). Weight as of this encounter: 90.7 kg (200 lb). Last 5 Encounter BP Readings: Date: BP: 07/23/2023 132/84 05/31/2023 100/60 05/28/2023 144/88 05/24/2023 92/62 05/20/2023 122/70 Physical Exam Constitutional: Appearance: Normal appearance. She is obese. HENT: Head: Normocephalic. Eyes: Conjunctiva/sclera: Conjunctivae normal. Cardiovascular: Rate and Rhythm: Normal rate and regular rhythm. Heart sounds: Normal heart sounds. Pulmonary: Effort: Pulmonary effort is normal. Breath sounds: Normal breath sounds. Musculoskeletal: Right shoulder: Tenderness (over rotator cuff) present. Decreased range of motion (abld to abduct to 90 degress; pain limits ROM). Comments: Lump over posterior shoulder laterally close to edge of scapula--?lipomatous Pain with rotation of shoulder joint Skin: General: Skin is warm and dry. Neurological: General: No focal deficit present. Mental Status: She is alert and oriented to person, place, and time. Psychiatric: Mood and Affect: Mood normal. Behavior: Behavior normal. Thought Content: Thought content normal. Judgment: Judgment normal. Hemoglobin A1C (%) Date Value 05/06/2023 7.9 12/19/2022 7.9 07/31/2022 8.2 03/28/2022 7.5 08/14/2021 6.4 03/30/2021 6.4 10/07/2020 6.0 05/18/2020 6.4 07/02/2019 7.8 Assessment and Plan Encounter Diagnosis ICD-10-CM 1. Essential hypertension I10 Will adjust meds since BP staying high and associated with headaches 2. Throbbing headache R51.9 Associated with elevated BP. Meds adjusted. Monitor BP and headache symptoms. Further evaluation and treatment as needed 3. Acute pain of right shoulder M25.511 XR SHOULDER GENERAL 3V OR MORE AP/TRUE AP/OTHER RIGHT Check Xray. Conservative management for now. Rest, ice and heat. Consider PT or ortho eval as indicated. Prefers [facility] since Dr. Jett did her knees 4. Type 2 diabetes mellitus with hyperglycemia, without long-term current use of insulin (HCC) E11.65 Continue present management with as needed extra glipizide while working on healthier diet and exercise. 5. Severe persistent asthma without complication J45.50 Controlled with current meds; still working on smoking cessation 6. Pain in both lower extremities M79.604 M79.605 Follow up with ortho for knee issues, etc. 7. Encounter for immunization Z23 INFLUENZA VACCINE, AGE 6 MO - 64 YR, QUADRIVALENT (AFLURIA, FLULAVAL, FLUZONE) PNEUMOCOCCAL VACCINE (PREVNAR 20) Above issues addressed with patient. Patient involved in shared decision making for management of medical issues. History and medications reviewed. Epic updated as needed Refills and/or prescriptions taken care of and meds adjusted as indicated after reviewed history, exam and labs. Health Maintenance reviewed. Updated record and/or ordered tests as recorded. Encouraged on efforts at healthy diet and regular exercise and adequate sleep. I spent a total of 46 minutes on the date of the service which included [id number] patient care, completing clinical documentation, obtaining and/or reviewing separately obtained history, performing a medically appropriate examination, counseling and educating the patient/family/caregiver, and ordering medications, tests, or procedures. Willam Estrada MD documented in this encounterUniversity [facility]als [facility]11-09-2023 Miscellaneous Notes* Telephone Encounter - Amy Marquez RN - 07/18/2023 10:12 PM EST Reason for Call: 183/102. 3/10 H/A. Feels jittery. She wants to know if she can taken the other half of Atenolol Outcome: I informed Dr. Byron Painter who said she can take the other half of her Atenolol whichwould be 25 mg now times one. Call the office in the morning. I relayed this to Ms. De Santiago for expressed understanding. Allergies reviewed: Yes ALLERGIES Allergen Reactions Cephalosporins Rash Dilaudid [Hydromorp* Mental Status Change Dust Mites Omnicef [Cefdinir] Hives Paxil [Paroxetine] Intolerance excessive sweating Penicillins Hives, Other: See Comments Any medication with penicillin in it. Had been given amoxicillin in 2011 and had reaction Given test dose of 2cc's on 08/17/2019 causing sever flushing along with hypotension Prednisone Intolerance Elevated BS, ER Prozac [Fluoxetine * Mental Status Change, Diarrhea Pseudoephedrine Intolerance Heart racing Vicodin [Hydrocodon* GI Upset The following medications were verbally ordered by and read back to Dr. Byron Painter on 07/18/2023 at 10:25 PM by Amy Marquez RN. Requested Prescriptions Signed Prescriptions Disp Refills atenolol (TENORMIN) 50 mg tablet 1 tablet 0 Sig: Take 1/2 tablet now times one Patient/Family notified: Yes Amy Marquez RN * Telephone Encounter - Amy Marquez RN - 07/18/2023 9:37 PM EST Answer Assessment - Initial Assessment Questions 1. BLOOD PRESSURE: 180/99 9 minutes ago 183/102 just taken 2. ONSET: 7 pm today she was 161/102 and she took 1/2 of her Atenolol 3. HOW: Home b/p machine 4. HISTORY: HTN 5. MEDICINES: Atenolol 50 mg daily Lisinopril 20 mg daily. Lasix 20 mg daily. She took 1/2 dose at 7 pm. She also took 1/2 a dose yesterday also at 7 pm because her b/p was 182/121 6. OTHER SYMPTOMS: 3/ H/A, feels jittery Protocols used: Blood Pressure - [id number] documented in this encounterUniversity [facility]als [facility]11-09-2023 History of Present illness Narrative* Rola Browne RN - 07/18/2023 10:21 AM EST CDM Telephonic Outreach Provider Action/FYI called to check on patient after having elevated BLOOD PRESSURE yesterday Today BLOOD PRESSURE 140/83 and 151/94 Pt will continue to log BLOOD PRESSURE readings and show it to her PCP at next week appointment Pt taking medications as prescribed Appreciated the follow up Contacted for: Routine Telephonic Outreach Contact made with patient: Yes Patient identified by name and date of . Discussed care with patient Are you experiencing any new or worsening symptoms you need to talk about today? No Disease Specific Do you check your blood pressure at home? Yes, Enter readings: see fyi box Do you have new or worsening shortness of breath with activity? No Based on concrete finisher apprentice, the following disposition is advised: No symptoms or symptoms present, not severe. Routed to: No Action Needed LISA Education Provided this Outreach: No Rola Browne RN July 18, 2023 1:06 PM documented in this encounterUniversity Hospitals [facility]11-08-2023 History of Present illness Narrative* Rola Browne RN - 07/17/2023 3:38 PM EST CDM ESCALATION Provider Action / FYI: H/o COPD Trigger: BLOOD PRESSURE is not at goal Pt took BLOOD PRESSURE medication Atenolol 50 mg around 11:30 am Checked BLOOD PRESSURE at 12 pm 182/121 3:15 pm BLOOD PRESSURE 173/101 This happen before ( elevated BLOOD PRESSURE) and patient was told she could take and extra 25 mg Atenolol She will recheck her BLOOD PRESSURE in an hour and will continue to monitor readings Denies EDWARDS,flushing,dizziness, SOB or edema in legs Pt did eat cheetos last evening. Will avoid sodium at dinner time Pt is also taking her lasix and lisinopril Message received via: it programmer analyst Pool Contact made with patient: Yes The patient was identified by name and date of . Discussed Care with patient Based on concrete finisher apprentice, the following disposition is advised: No symptoms or symptoms present, not severe. Routed to: No Action Needed LISA Education Provided this Outreach: No Rola Browne RN July 17, 2023 3:58 PM documented in this encounterUniversity Hospitals [facility]10-26-2023 History of Present illness Narrative* January Fernández MA - 07/04/2023 11:23 AM EDT POPULATION HEALTH NAVIGATION OUTREACH Action/FYI July 04, 2023 Spoke with pt. Pt rescheduled to 07/23/23 to see PCP for multiple concerns. Appt on 08/07/23 canceled and pt is aware. CDM appt needed for: Pt has multiple concerns Requesting to see her PCP within the next week. (prefers PCP) to discuss concerns Potassium had been 3.3-3.5 (low) for the past 6 months. Blood sugar are elevated every morning 170-180 Continues to have itching all over that comes and goes Routed to Navigator to assist in making a PCP appointment within the next 7 days Patient Identified by Name and : YES, via phone Outreach Outcome/Action Spoke to patient / parent / legal guardian: Patient scheduled Did you use a PCP flex slot to schedule this appointment? No Reason for Outreach Community Monitoring Pool Payer: Payor: MEDICARE / Plan: MEDICARE A AND B / Product Type: Medicare / Care Gap Reviewed:: Follow-up appointment Reminder: Reminder note to check Health Maintenance for items below Health Maintenance items due: Lung Cancer Screening Never done Pneumococcal Vaccine(2 - PCV) due on 09/09/2011 DTaP,Tdap,Td Vaccine(3 - Tdap) due on 09/14/2018 Hepatitis B Vaccine(1 of 3 - Risk 3-dose series) Never done RSV Vaccine(1 - 1-dose 60+ series) Never done Diabetic Foot Exam due on 03/31/2022 Influenza Vaccine(1) due on 05/10/2023 Covid-19 Vaccine( season) due on 05/10/2023 Mammogram Screening due on 09/14/2023 Navigation Signature: January Fernández MA July 04, 2023 11:23 AM * Rola Browne RN - 07/04/2023 8:17 AM EDT CDM ESCALATION Provider Action / FYI: [facility] escalation Pt has multiple concerns Requesting to see her PCP within the next week. (prefers PCP) to discuss concerns Potassium had been 3.3-3.5 (low) for the past 6 months. Blood sugar are elevated every morning 170-180 Continues to have itching all over that comes and goes Routed to Navigator to assist in making a PCP appointment within the next 7 days Message received via: it programmer analyst Pool Contact made with patient: Yes The patient was identified by name and date of . Discussed Care with patient Based on concrete finisher apprentice, the following disposition is advised: No symptoms or symptoms present, not severe. Routed to: Navigation Team: PCP visit within 7 days LISA Education Provided this Outreach: No Rola Browne RN July 04, 2023 10:59 AM CDM ESCALATION Provider Action / FYI: history of COPD Trigger: Are you having any new symptoms that your PCP needs to know about? Yes unable to reach patient x1, left VM Message received via: it programmer analyst Pool Contact made with patient: No, left message. Rola Browne RN July 04, 2023 8:49 AM documented in this encounterUniversity Hospitals [facility]10-23-2023 Procedure [facility]10-23-2023 Procedure [facility]10-20-2023 Miscellaneous Notes* Telephone Encounter - Corinne Belle LPN - 06/28/2023 4:39 PM EDT Patient only has 6 strips left. Asking if this can be sent today. Please advise. documented in this encounterUniversity Hospitals [facility] Center10-19-2023 Discharge summary Author Corey Rubi [facility] June 28, 2023 12:29am Note Date/Time June 27, 2023 1 0:58pm [facility] Medical Records Department [address] [place] [address] Emergency Department Summary 06/27/23 MR#: [id number] Acct: [id number] Name: GARLAND DE SANTIAGO Rep #:[id number] : 1960 63 From: Corey Rubi MD PCP: Dr. Willam Estrada MD Status:RE G ER Location: ED HPI History of Present Illness Chief Complaint: General Illness Informant: patient Narrative Narrative: For the past 2 or 3 days patient has had gradual onset of chest heaviness, some separate's chest tightness that is making her feel dyspneic, all of this is substernal nonlateralizing without radiation, she has some chronic orthopnea that is no different, chronic leg edema that is actually better than usual for which she is taking Lasix chronically, she has some chronic upper abdominal symptoms that are no different lately, she is scheduled for an EGD coming up forth. She states she checked her blood pressure prior to coming here and it wco992/130, which was concerning to her, she is compliant with her blood pressure medication and all of her other prescriptions. She is a heavy smoker. She has COPD. She has been wheezing. She denies having a significant increased cough but states that she does feel like she needs to get some sputum up and cannot attimes, and a lot of times that is when she is feeling tight. The dyspnea is mostly with exertion. Chronic diarrhea unchanged no melena or bright red blood per rectum. No urinary symptoms. [facility] Medical History Abdominal pain Anxiety Anxiety and depression Arthritis BiPAP (biphasic positive airway pressure) dependence Bladder disease Cardiology follow-up encounter COPD (chronic obstructive pulmonary disease) Depression Diabetes Diarrhea Dietary restriction Elevated CPK Fatty liver Gastric reflux Hemorrhage of gastrointestinal tract History of echocardiogram History of hiatal hernia History of stress test Hypertension Mixed hyperlipidemia YARY treated with BiPAP Osteoarthritis Postoperative anemia Sleep apnea Smoker Type 2 diabetes mellitus Wears dentures Wears partial dentures Home Medications gemfibrozil 600 mg tablet 600 mg PO BID 06/13/14 [History Last Taken 07/19/15 600 MG] trazodone 100 mg tablet 100 mg PO QHS 06/13/14 [History Last Taken 07/19/15 100 MG] alprazolam 0.5 mg tablet 0.5 mg PO QHS ANXIETY 07/30/15 [History Last Taken 2 Weeks Ago ~07/16/15 2 TABS] lisinopril 20 mg tablet 20 mg PO DAILY #30 TABLETS 08/02/15 [Rx Last Taken Unknown] albuterol sulfate 90 mcg/actuation aerosol inhaler (Ventolin HFA) 1 - 2 puff inhalation Q4H PRN PRN Wheezing ##1 08/08/15 [Rx Last Taken Unknown] furosemide 20 mg tablet 20 mg PO DAILY 09/26/15 [History Last Taken Unknown] buspirone 5 mg tablet 7.5 mg PO BID 07/11/18 [History Last Taken Unknown] metformin 500 mg tablet,extended release 24 hr 500 mg PO BID 07/11/18 [History Last Taken Unknown] potassium chloride 10 mEq tablet,extended release(part/cryst) 10 meq PO DAILY 07/11/18 [History Last Taken Unknown] sertraline 100 mg tablet (Zoloft) 200 mg PO QHS 07/11/18 [History Last Taken Unknown] fluticasone furoate 100 mcg-vilanterol 25 mcg/dose inhalation powder 1 ea IH DAILY 07/29/19 [History Last Taken Unknown] ipratropium bromide 0.02 % solution for inhalation 2.5 ml inhalation Q6H PRN shortness of breath or wheezing #75 mL 08/21/21 [Rx Last Taken Unknown] albuterol sulfate 2.5 mg/3 mL (0.083 %) solution for nebulization 2.5 mg inhalation Q4H PRN shortness of breath 11/15/21 [History Last Taken Unknown] atenolol 50 mg tablet 50 mg PO DAILY 11/15/21 [History Last Taken Unknown] cetirizine 10 mg tablet 10 mg PO DAILY PRN ALLERGIES 11/15/21 [History Last Taken Unknown] gabapentin 300 mg capsule (Neurontin) 600 mg PO .COMPLEX 11/15/21 [History Last Taken Unknown] ibuprofen 600 mg tablet 600 mg PO BID 11/15/21 [History Last Taken Unknown] ketoconazole 2 % topical cream 1 applic topical DAILY 11/15/21 [History Last Taken Unknown] fluticasone propionate 50 mcg/actuation nasal spray,suspension (Allergy Relief (fluticasone)) 2 spray intranasal DAILY 01/04/22 [History Last Taken Unknown] glimepiride 4 mg tablet 4 mg PO DAILY PRN glucose >200 01/04/23 [History Last Taken Unknown] ursodiol 300 mg capsule 300 mg PO BID #60 caps 03/26/23 [Rx Last Taken Unknown] vitamin E mixed 400 unit capsule 800 unit (2 x 400 unit) PO DAILY #60 caps 03/26/23 [Rx Last Taken Unknown] pantoprazole 40 mg tablet,delayed release (Protonix) 40 mg PO BID #60 tabs 04/09/23 [Rx Last Taken Unknown] hydroxyzine pamoate 25 mg capsule 25 mg PO TID PRN PRN itching #30 CAPSULES 05/30/23 [Rx Last Taken Unknown] dicyclomine 10 mg capsule 10 mg PO TID 30 days #90 caps 06/25/23 [Rx Last Taken Unknown] loperamide 2 mg tablet (Anti-Diarrheal (loperamide)) 2 mg PO Q6H PRN loose stool30 days #120 tabs 06/25/23 [Rx Last Taken Unknown] Allergy/AdvReac Type Severity Reaction Status Date / Time Cephalosporins Allergy Intermediate Rash Verified 06/27/23 22:13 hydromorphone [From Dilaudid] Allergy Intermediate Altered Verified 06/27/23 22:13 mental status pseudoephedrine Allergy Intermediate Tachycardia Verified 06/27/23 22:13 fluoxetine [From Prozac] Allergy Chest Verified 06/27/23 22:13 tightness house dust mite Allergy NEEDS Verified 06/27/23 22:13 FOLLOW-UP hydrocodone [From Vicodin] Allergy Upset Verified 06/27/23 22:13 Stomach Penicillins Allergy Hives Verified 06/27/23 22:13 prednisone AdvReac PT UNABLE Verified 06/27/23 22:13 TO RESPOND-NEEDS F/U Family History Mother Glaucoma Cervical cancer Asthma Father , at 77 Myocardial infarction Cancer Lung, metastatic to bone CAD (coronary artery disease) History of coronary artery bypass surgery Aortic aneurysm and dissection Sister Colon polyp Thyroid disorder Lung cancer Surgical History H/O vaginal hysterectomy History of appendectomy History of back surgery History of bladder suspension procedure History of lumbar laminectomy History of total right knee replacement Hx of cholecystectomy Hx of tonsillectomy S/P total knee arthroplasty Tubal ligation status Social History Smoking Status: Current every day smoker tobacco type: cigarettes alcohol intake: never substance use type: does not use caffeine: Yes Type: carbonated beverages Number of servings: 2 ROS ROS ED Constitutional Constitutional ED: Denies chills or fever(s) Eyes Eyes: Denies change in vision or diplopia ENT ENT ED: Denies rhinorrhea or sore throat Cardiovascular Cardiovascular: Reports chest pain and orthopnea; Denies palpitations Respiratory/Chest Respiratory/Chest: Reports chest tightness, cough, dyspnea, dyspnea on exertion and orthopnea Gastrointestinal Gastrointestinal: Reports abdominal pain, bloating and diarrhea; Denies nausea or vomiting Genitourinary Genitourinary ED: Denies dysuria or hematuria Musculoskeletal Musculoskeletal: Denies back pain or neck pain Integumentary Denies abscess or rash Neurologic Neurologic: Reports headache(s); Denies paresthesias or weakness Psychiatric Psychiatric: Denies anxiety or suicidal thoughts EXAM Physical Exam Const Vital Signs: 06/27/23 22:14 06/27/23 22:17 06/27/23 22:43 Temperature 97.5 F L 97.5 F L Temperature Source Temporal Temporal Pulse Rate 79 79 Respiratory Rate 24 H 24 H Respiratory Effort Blood Pressure 181/95 H 181/95 H Blood Pressure Mean 123 123 Pulse Ox 99 97 96 Oxygen Delivery Method Room Air 06/27/23 22:43 06/27/23 23:01 06/27/23 23:19 Temperature 97.5 F L Temperature Source Temporal Pulse Rate 72 68 Respiratory Rate 14 18 Respiratory Effort Short of Breath Blood Pressure 147/86 H Blood Pressure Mean 106 Pulse Ox 96 Oxygen Delivery Method Room Air Positive well nourished and well developed General Appearance ED: well developed and NAD HEENT Reports moist mucous membranes normocephalic and atraumatic Eyes PERRL and EOMs intact bilaterally Neck full ROM, supple and no JVD Resp normal respiratory effort Resp Narrative: Diminished throughout. Symmetric. Mild inspiratory wheezes, otherwise clear toauscultation throughout. Speaking in full sentences. No distress. No splinting on deep inspiration. Cardio regular rate, regular rhythm and no murmurs GI non-distended Auscultation: normoactive bowel sounds Palpation: soft Back/Spine no CVA tenderness General Back: other FROM Extremity normal to inspection General Extremety ED: Negative for edema, pulses abnormal or tenderness General Extremity: Negative for edema or pulses abnormal Neuro oriented x3, CN's II-XII intact bilaterally and no sensory deficits noted Sensorium / Orientation: awake and alert Motor Exam: strength 5/5 throughout Skin no rashes or lesions noted and no wounds MDM MDM MDM Narrative Medical decision making narrative: Differential here is fairly wide especially with her blood pressure 181/95, headache, chest heaviness and tightness, some COPD symptoms but not symptoms that necessarily qualify for a true COPD exacerbation, she does not sound like she has pneumonia clinically, but we did obtain a two-view chest x-ray which on my interpretation is normal showing no signs of an effusion, edema, or pneumonia. Radiology in agreement. Acute coronary syndrome and other cardiac abnormalities are in the differential. Her EKG, troponin, and BNP are all extremely normal after having symptoms for couple days. Given all of this, as well as her other labs, I am comfortable with her being discharged home. She feels better after we gave her an albuterol treatment. I was going to give her a dose of hydralazine, but on repeat after the initial blood pressure, her measurement is 147/86 so we held off on that, and she had a couple other systolics that were 153 and 142 after that while she was being observed in waiting for the work-up, so I feel better that her blood pressure truly is down right now, and not in need of any emergent medication adjustment or treatment. I discussed following up and having this rechecked in the near future, the GI issues that she has are in the differential is causing this chest discomfort as well, and the single episode of elevated blood pressure may or may not be related to any of the symptoms. As I discussed with her, it may have caused herto have a headache and feel jittery tonight. Her potassium is a little low, shestates it has been low on the last couple measurements, her renal function is normal she is on furosemide and she is already taking once daily potassium supplementation. I recommend taking an additional dose for the next 4 days or so, before she follows up with her doctor. She was given an oral dose of 20 mill equivalents here prior to discharge she is comfortable with that plan. History & Record Review Additional record(s) reviewed:: Prior outpatient record (Echocardiogram 2021, EF70%, no major signs of congestive heart failure but some minor valvular issues.) Lab Data Attestation: I reviewed the patient's lab results. Labs: Laboratory Results - last 24 hr 06/27/23 22:27 WBC 7.1 RBC 5.02 Hgb 14.3 Hct 42.3 MCV 84.3 MCH 28.5 MCHC 33.8 RDW Std Deviation 37.5 RDW Coeff of Rodrigo 12.5 Plt Count 326 MPV 9.6 Immature Gran % (Auto) 0.300 Neut % (Auto) 40.1 L Lymph % (Auto) 48.9 H Tate % (Auto) 5.9 Eos % (Auto) 4.5 Baso % (Auto) 0.3 Absolute Neuts (auto) 2.8 Absolute Lymphs (auto) 3.45 Nucleated RBC % 0 Sodium 139 Potassium 3.3 L Chloride 105 Carbon Dioxide 26.0 Anion Gap 8 BUN 12 Creatinine 0.59 Estim Creat Clear Calc 91.36 Est GFR (MDRD) Af Amer 133 Est GFR (MDRD) Non-Af 110 BUN/Creatinine Ratio 20.5 H Glucose 181 H Calcium 8.6 Troponin I High Sens 6 B-Natriuretic Peptide 68.4 Radiography Diagnostic Testing: Clinical Impression(s) from Imaging Studies Chest X-Ray 06/27/23 22:36 IMPRESSION: Normal x-ray examination of the chest. Electronically Signed: Apollo Monteiro MD at 23:05 EDT , Rhythm Strip Rhythm Strip: Sinus Rhythm Rate: 72 Ectopy: None EKG Initial EKG: Attestation: I personally reviewed and interpreted this EKG as follows: Interpretation: Sinus Rhythm and No Acute Injury Pattern Comments: Normal EKG Discharge Plan Triage Chief Complaint: General Illness ED Provider: Corey Rubi Dx/Rx/DC Orders Clinical Impression: Chest pain, unspecified, COPD (chronic obstructive pulmonary disease), Episode of hypertension, Hypokalemia due to excessive renal loss of potassium Instructions: Hypokalemia Dc, ED Chest Pain, Noncardiac Prescriptions: No Action fluticasone propionate [Allergy Relief (fluticasone)] 50 mcg/actuation spray,suspension 2 spray intranasal DAILY Rx Instructions: administer into each nostril albuterol sulfate 2.5 mg /3 mL (0.083 %) solution for nebulization 2.5 mg inhalation Q4H PRN (Reason: shortness of breath) ketoconazole 2 % cream 1 applic topical DAILY ibuprofen 600 mg tablet 600 mg PO BID cetirizine 10 mg tablet 10 mg PO DAILY PRN (Reason: ALLERGIES) atenolol 50 mg tablet 50 mg PO DAILY glimepiride 4 mg tablet 4 mg PO DAILY PRN (Reason: glucose >200) trazodone 100 MG tablet 100 mg PO QHS Patient Comments: Mood/anti-anxiety gemfibrozil 600 MG tablet 600 mg PO BID Patient Comments: Cholesterol alprazolam 0.5 MG tablet 0.5 mg PO QHS Patient Comments: anti-anxiety TAKES 2 TABS OF 0.5MG @ HS lisinopril 20 MG tablet 20 mg PO DAILY Qty: 30 0RF albuterol sulfate [Ventolin HFA] 1 INHALER inhaler 1 - 2 puff inhalation Q4H PRN PRN (Reason: Wheezing) Qty: 1 0RF furosemide 20 MG tablet 20 mg PO DAILY Patient Comments: buspirone 5 MG tablet 7.5 mg PO BID Patient Comments: anti-anxiety sertraline [Zoloft] 100 MG tablet 200 mg PO QHS metformin 500 MG tablet 500 mg PO BID potassium chloride 10 MEQ tablet 10 meq PO DAILY gabapentin [Neurontin] 300 mg capsule 600 mg PO .COMPLEX Rx Instructions: 600 mg PO take 2 caps in the am and 3 caps in the evening; fluticasone furoate-vilanterol 1 EACH blister with device 1 ea IH DAILY ipratropium bromide 0.02 % solution 2.5 ml inhalation Q6H PRN (Reason: shortness of breath or wheezing) Qty: 75 2RF hydroxyzine pamoate [hydroxyzine pamoate] 25 mg capsule 25 mg PO TID PRN PRN (Reason: itching) Qty: 30 0RF ursodiol 300 mg capsule 300 mg PO BID Qty: 60 11RF vitamin E mixed 400 unit capsule 800 unit PO DAILY Qty: 60 11RF pantoprazole [Protonix] 40 mg tablet,delayed release (DR/EC) 40 mg PO BID Qty: 60 2RF loperamide [Anti-Diarrheal (loperamide)] 2 mg tablet 2 mg PO Q6H PRN (Reason: loose stool) 30 Days Qty: 120 0RF dicyclomine 10 mg capsule 10 mg PO TID 30 Days Qty: 90 0RF Primary Care Provider: Willam Estrada Referrals: Willam Estrada MD [Primary Care Provider] - 3-5 Days Activity Restrictions/Additional Instructions: For the next 4 days or so, take 1 potassium tablet twice per day Disposition Disposition: Home, Self Care What to do if you have Problems For any increased pain, shortness of breath, bleeding, nausea or vomiting, chestpain, or any unexpected problems, contact your Primary Care Provider. Call [facility] ([phone]) or report to the closest Emergency Room. Call 911 if necessary. 06/28/2328 <Electronically signed by Corey Rubi MD> Cosigner Signature (if applicable): CC: Dr. Willam Estrada MD ~ Signed [facility] Work Phone: [phone] 534-218909-25-2023 Miscellaneous Notes* Telephone Encounter - Lori Silver RN - 06/03/2023 2:48 PM EDT Pt called and is notified of providers results and instructions. Pt voices understanding. Lori Silver RN * Telephone Encounter - Allegra Berumen APRN.HEIDY - 06/03/2023 2:28 PM EDT Please let her know I sent in a medrol dose pack for her, this dose of steroid should be a little kinder to her blood sugars but also should hopefully be helpful in getting her hives to clear up! * Telephone Encounter - Ashley Hernandez RN - 06/03/2023 1:44 PM EDT Patient notified of results and provider's instructions. Patient verbalizes understanding. Patient states that she is feeling the same. Patient continues to have hives. Patient is willing totry a low dose prednisone. Patient just doesn't want her sugars to be elevated too much. Patient's pharmacy is [facility]. Ashley Hernandez RN * Telephone Encounter - Allegra Berumen APRN.CNP - 06/03/2023 12:27 PM EDT Based on the blood counts in her labs it looks like the hives could be secondary to a viral illness. Please see if she feels they are the same, improved, or any worse? If not improving I would recommend strongly considering a low dose steroid like a medrol dose pack, we could also try adding Singulair short term. * Telephone Encounter - Ashley Hernandez RN - 06/03/2023 11:18 AM EDT Patient calls and states that she continues to have issues with hives. Patient states that she has also been having issues with diarrhea. Patient states that she also noticed that some of her blood work has come back and that it has red flags. Patient is worried about the red flags Please review and advise, Ashley Hernandez RN documented in this encounterUniversity Hospitals [facility]09-22-2023 Instructions* Patient Instructions* Allegra Berumen APRN.CNP - 05/31/2023 2:27 PM EDT Check blood work. Start your Zyrtec daily for the next 2 weeks. Start using the hydroxyzine ER ordered as needed. Start Pepcid (famotidine) twice daily. Do oatmeal baths to help with itching. documented in this encounterUniversity Hospitals [facility] Center09-22-2023 History of Present illness Narrative* Allegra Berumen APRN.CNP - 05/31/2023 2:15 PM EDT SUBJECTIVE Garland De Santiago is a 62 year old female here today for a check up on her medical problems. Chief Complaint Patient presents with: ER [facility] [facility] pm 05/26/2023 and 05/30/2023 with hives. Treated with benadryl. Which did help. At second ER visit was given hydroxyzine but that was not effective. Was given a script for prednisone but patient states she can't take this due to breaking out in a sweat and heart racing the last time she took in. HPI Garland De Santiago is a 62 year old female established patient of Dr. Estrada and is here today forER follow up, concerns of a rash. 05/20 - Initially seen in EC for possible UTI, started Macrobid for e. Coli UTI. 05/24 - Followed up with Dr. Estrada. Stopped macrobid and started a new antibitoic (omnicef) for a possible respiratory tract infection. Known PCN allergy but was hopeful to be alright with this. 05/26 - Started with a rash with welts and itching and hives. Seen in ED at [facility] and treated. Had fevers around 100.0 degrees f. Stopped the antibiotic. 05/28 - Started just not feeling well and went back to EC and was ordered doxycycline but did not take this due to past GI upset with it. 05/30 - Back to ED due to still itching, trying itch cream and benadryl. Here today due to still having the rash/hives. Has zyrtec at home. Breathing okay. ED did recheck her urine and infection had cleared. Overall she feels she no longer has an infection. Her medications were reviewed today and her list is now up to date. Medications Current Outpatient Medications Medication Sig ibuprofen (MOTRIN) 600 mg tablet Take 1 tablet by mouth every 12 hours. atenolol (TENORMIN) 50 mg tablet Take 1 tablet by mouth once daily. busPIRone (BUSPAR) 15 mg tablet Take 0.5 tablets by mouth twice daily. furosemide (LASIX) 20 mg tablet Take 1 tablet by mouth once daily. fluticasone (FLONASE) 50 mcg/actuation nasal spray Use 2 Sprays in each nostril once daily. Rinse mouth after use. gemfibrozil (LOPID) 600 mg tablet Take 1 tablet by mouth twice daily. metFORMIN ER (GLUCOPHAGE XR) 500 mg 24 hr tablet Take 1 tablet by mouth twice daily before meals. sertraline (ZOLOFT) 100 mg tablet Take 2 tablets by mouth once daily. traZODone (DESYREL) 100 mg tablet Take 1 tablet by mouth daily at bedtime. ALPRAZolam (XANAX) 0.5 mg tablet Take 1 tablet by mouth at bedtime as needed for up to 120 days. Donot start before April 10, 2023. gabapentin (NEURONTIN) 300 mg capsule Take 2 capsules by mouth every morning AND 3 capsules every evening. Do all this for 120 days. albuterol HFA (PROAIR HFA) 90 mcg/actuation inhaler Inhale 2 Puffs as instructed every 4 hours as needed for wheezing/shortness of breath. ursodiol (ACTIGALL) 300 mg capsule Take 300 mg by mouth twice daily. albuterol (PROVENTIL) 2.5 mg /3 mL (0.083 %) nebulizer solution Use 3 mL via nebulizer every 4 hours as needed for wheezing/shortness of breath. potassium chloride (K-TAB) 10 mEq tablet Take 1 tablet by mouth daily with breakfast. lisinopril (ZESTRIL) 20 mg tablet Take 1 tablet by mouth once daily. fluticasone-vilanterol (BREO ELLIPTA) 200-25 mcg/dose inhaler Inhale 1 Inhalation as instructed once daily. glipiZIDE (GLUCOTROL) 5 mg tablet Take 1 tablet by mouth once daily. May take extra half to whole pill daily as needed for blood sugar over 200 (Patient taking differently: Take 5 mg by mouth once daily. May take extra half to whole pill daily as needed for blood sugar over 200 Takes if Blood Sugar over 200 but not daily otherwise) ipratropium (ATROVENT) 0.02 % nebulizer solution Use 2.5 mL via nebulizer four times daily. Unit dose pack of 50 (Patient taking differently: Use 0.5 mg via nebulizer four times daily. Unit dose packof 50 As needed) Vitamin E, dl, acetate, (VITAMIN E) 400 unit capsule Take 400 Units by mouth once daily. ketoconazole (NIZORAL) 2 % cream Apply 1 application to affected area once daily. (Patient taking differently: Apply 1 application to affected area once daily. As needed) famotidine (PEPCID) 40 mg tablet Take 1 tablet by mouth twice daily. Nebulizer and Compressor For Neb Use for albuterol and ipratropium nebulizer treatments every 4 hours as needed sucralfate (CARAFATE) 1 gram tablet Take 1 tablet by mouth three times daily before meals. (Patientnot taking: Reported on 05/31/2023) cholecalciferol, vitamin D3, 10 mcg (400 unit) cap Take 1 capsule by mouth once daily. (Patient nottaking: Reported on 05/31/2023) albuterol HFA (VENTOLIN HFA) 90 mcg/actuation inhaler Inhale 2 Puffs as instructed every 4 hours asneeded. lipase/protease/amylase (CREON ORAL) Take by mouth. Dr. Caceres, unsure of dose (Patient not taking:Reported on 05/31/2023) Lancets lancets Test blood sugar(s) 2 times daily. Dx: Type 2 DM - Uncontrolled E11.65 Insulin: No blood sugar diagnostic (TRUE METRIX GLUCOSE TEST STRIP) test strip Test blood sugars twice a day DX: E11.65 Insulin: No Use as instructed Blood-Glucose Meter monitoring kit Insurance covered or per patient choice. Test blood sugar twice daily plus as needed for symptoms of blood sugars being too high or low. Dx: Type 2 DM - Uncontrolled E11.65 Insulin:No Nebulizer NEBULIZER FOR HOME USE. DX: J45.42 BIPAP Initiate BiPAP @ 20/14 cm of water with heated humidification. Ti Max 1.0, Ti Min 0.3, trigger medium, cycle high. Mask (medium AirFit F10 full face mask or per patient preference) optional chin strap (if indicated) , filters, tubing, humidifier and lifetime supplies. No current facility-administered medications for this visit. ALLERGIES Allergen Reactions Cephalosporins Rash Dilaudid [Hydromorp* Mental Status Change Dust Mites Omnicef [Cefdinir] Hives Paxil [Paroxetine] Intolerance excessive sweating Penicillins Hives, Other: See Comments Any medication with penicillin in it. Had been given amoxicillin in 2011 and had reaction Given test dose of 2cc's on 08/17/2019 causing sever flushing along with hypotension Prednisone Intolerance Elevated BS, ER Prozac [Fluoxetine * Mental Status Change, Diarrhea Pseudoephedrine Intolerance Heart racing Vicodin [Hydrocodon* GI Upset ACTIVE PROBLEM LIST S/P Lumbar Laminectomy - 04/10/2022 Chronic Midline Low Back Pain - 04/10/2022 Gait Instability - 04/10/2022 Comment: feels wobbly when walking Nicotine use disorder, F17.2 - 04/28/2020 Lumbar Spinal Stenosis - 04/27/2020 Yary (Obstructive Sleep Apnea) Comment: Uses BiPAP Anxiety Recurrent Major Depressive Disorder, in Remission ([facility]) Type 2 Diabetes Mellitus With Diabetic Neuropathy, Without Long-Term Current Use of Insulin ([facility]) -02/01/2017 Obesity (Bmi 30.0-34.9) Rhinitis - 10/30/2013 Asthma - 02/10/2007 Pure Hyperglyceridemia - 02/10/2007 Essential Hypertension - 05/23/2006 Elevated Ck - 05/23/2006 Comment: CK Elevation Social History Tobacco Use Smoking status: Every Day Packs/day: 1.00 Years: 36.00 Additional pack years: 0.00 Total pack years: 36.00 Types: Cigarettes Smokeless tobacco: Never Tobacco comments: Working on smoking cessation. Trying every day to quit but not happening yet. Still working--1PPD (April 03, 2023) Vaping Use Vaping Use: Never used Substance Use Topics Alcohol use: No Drug use: No Review of Systems Respiratory: Negative. Cardiovascular: Negative. Skin: Positive for rash. OBJECTIVE BP 100/60 Pulse 64 Resp 97 Wt 199 lb (90.3kg) Physical Exam Vitals and nursing note reviewed. Constitutional: General: She is awake. She is not in acute distress. Appearance: Normal appearance. She is well-developed and well-groomed. She is not ill-appearing, toxic-appearing or diaphoretic. HENT: Head: Normocephalic. Right Ear: External ear normal. Left Ear: External ear normal. Nose: Nose normal. Eyes: General: Vision grossly intact. Conjunctiva/sclera: Conjunctivae normal. Pupils: Pupils are equal, round, and reactive to light. Neck: Vascular: No JVD. Trachea: Trachea normal. Cardiovascular: Rate and Rhythm: Normal rate and regular rhythm. Pulses: Normal pulses. Heart sounds: Normal heart sounds. No murmur heard. Pulmonary: Effort: Pulmonary effort is normal. No accessory muscle usage, prolonged expiration or respiratory distress. Breath sounds: Normal breath sounds. Musculoskeletal: Cervical back: Neck supple. Skin: General: Skin is warm and dry. Capillary Refill: Capillary refill takes less than 2 seconds. Findings: Rash present. Rash is urticarial. Comments: She has a scattered erythematous urticarial rash, visible on left lower leg, arms bilaterally. Neurological: General: No focal deficit present. Mental Status: She is alert and oriented to person, place, and time. Mental status is at baseline. Psychiatric: Attention and Perception: Attention and perception normal. Mood and Affect: Mood and affect normal. Speech: Speech normal. Behavior: Behavior normal. Behavior is cooperative. Thought Content: Thought content normal. Cognition and Memory: Cognition and memory normal. Judgment: Judgment normal. 1. Hives - ICD9: 708.9, ICD10: L50.9 (primary diagnosis) - Likely viral or allergic etiology discussed with patient - Treatment with antihistamine- Zyrtec 10mg po QD, H2 telma- famodtidine (Pepcid) - If persistent consider adding Leukotriene receptor telma- montelukast (Singulair), and systemicsteriods taper but she has a sensitivity to steroids so we will wait to use those - Labs CBC with Diff, Sed Rate, and TSH - Anti itch therapy of OTC 1% Hydrocortisone cream, Oatmeal baths, Oral Benydryl, and Rx for Ataraxrecommended prn - Follow up if symptoms persist or worsen. - FAMOTIDINE 40 MG TABLET - CBC + DIFF - COMP METABOLIC PANEL - TSH BLD - C-REACTIVE PROTEIN (CRP) - JOSE F BY IFA WITH REFLEX - SED RATE WESTERGREN 2. Dermatitis - ICD9: 692.9, ICD10: L30.9 See #1 - CBC + DIFF - COMP METABOLIC PANEL - TSH BLD - C-REACTIVE PROTEIN (CRP) - JOSE F BY IFA WITH REFLEX - SED RATE WESTERGREN 3. Other fatigue - ICD9: 780.79, ICD10: R53.83 - TSH BLD Portions of this note have been entered by ancillary staff. I have reviewed and when necessary edited, so that they are an adequate record of my encounter with this patient Please note that parts of this document were created using voice recognition software and therefore may contain grammatical errors. Patient verbalizes understanding of instructions from today's visit and in agreement with treatmentplan. Questions answered. Agrees to call the office if questions, concerns of issues with acute symptoms not improving or if they worsen. See diagnoses and orders for additional plan(s). Allergies and medications were reviewed, list was updated, and refills given if needed. Past medical, surgical, social, and family history reviewed and updated as appropriate. Encouraged proper diet & exercise as well as compliance with taking medications. Age- appropriate health preventative measures were discussed. Return if symptoms worsen or fail to improve, for Keep next scheduled appointment.. Allegra eBrumen APRN-HEIDY documented in this encounterUniversity Hospitals [facility]09-19-2023 Instructions* Patient Instructions* Deena Ivey APRN.CNP - 05/28/2023 7:02 PM EDT COUGH: Your doctor wants you to have this information about coughing. The body has a cough reflex which helps expel mucous secretions and irritants from the lung and airway passages. Cough spasms are periods of continuous coughing lasting several minutes. Most coughs is caused by virus infections which may last for up to 2-3 weeks. Coughing helps to protect the lung from pneumonia. A persistent cough lasting longer than 4-6 weeks requires medical evaluation by your primary care doctor. Treatment of cough includes measures to loosen the cough and thin the mucous. Warm liquids, cough drops, and nonprescription cough medicine may help reduce dry hacking cough. Use a humidifier if necessary as dry air can make coughs worse. Ultrasonic humidifiers are especially useful as they kill molds and many bacteria. Some cough medicines have antihistamines, decongestants, or alcohol in them; there is no proof that any of these help control cough. Prescription cough medicine or those with dextromethorphan (DM) should be reserved for dry coughs that prevent sleep or cause spasms or chest pain. Avoid any exposure to cigarette smoke as this will worsen the cough or make it last much longer. Call your doctor right away if you or your child have increased breathing difficulty, a high fever, a cough that lasts longer than 3 weeks, or other serious complaints. documented in this encounterUniversity Hospitals Beachwood [facility] Center09-19-2023 History of Present illness Narrative* Jennifer Castle RT(R) - 05/28/2023 6:40 PM EDT Radiology Service Progress Note PATIENT NAME: Garland De Santiago DATE OF SERVICE: May 28, 2023 TIME: 6:39 PM PATIENT IDENTITY VERIFICATION COMPLETED USING TWO (2) IDENTIFIERS: Name and Date of confirmedby patient verbally. FALL SCREENING: Has the patient had 2 falls in the last year or 1 fall with injury or currently using an Ambulatory Assistive Device (Walker, Cane, Wheelchair, Crutches, etc.)? No PATIENT GENDER DATA: Female. status: : No status: NO. PATIENT RELEVANT IMPLANT DATA REVIEWED: Yes RADIOLOGY DEPARTMENT: General X-ray: Exam(s) Completed: Chest X-Ray PERIPHERAL IV DATA: Not applicable SIGNED BY: RT Andrea(R) May 28, 2023 6:39 PM documented in this encounterUniversity Hospitals Beach[facility] Center09-19-2023 History of Present illness Narrative* Deena Ivey APRN.CNP - 05/28/2023 6:31 PM EDT This note was created using NoteWriter. Subjective Garland De Santiago is a 62 year old female. 62 year old female with PMH COPD, HTN, DM, asthma presents for illness. Acute onset around 05/21/23 Wheezing, cough, and chest congestion. Feelings of blah and fatigue. She was seen by Dr. Estrada on 05/24/23 At that time an EKG was performed Patient was put on Omnicef, but endorses she had an allergic reaction. She was seen in the ED on 05/26/23 Omnicef was discontinued. Patient presents today with continued complaints of respiratory sx. Feel like I need to be on another ATB She remains smoking tobacco. Has used her inhalers. The history is provided by the patient. No high school foreign language teacher was used. Cough This is a new problem. The current episode started more than 1 week ago. The problem occurs constantly. The problem has not changed since onset.The cough is Non-productive. Associated symptoms include chills, rhinorrhea, shortness of breath and wheezing. Pertinent negatives include no chest pain, no sweats, no weight loss, no ear congestion, no ear pain, no headaches, no sore throat, no myalgias and no eye redness. She has tried nothing for the symptoms. The treatment provided no relief. She beryl smoker. Her past medical history is significant for COPD and asthma. Her past medical history does not include bronchitis, pneumonia, bronchiectasis or emphysema. PAST MEDICAL HISTORY Diagnosis Date Allergic rhinitis, cause unspecified 02/10/2007 Anxiety Arthritis Asthma 02/10/2007 Centrilobular emphysema (HCC) Depression Psychiatrist managing (Dr. Bedolla) DM type 2 (diabetes mellitus, type 2) (HCC) Essential hypertension 05/23/2006 Hemorrhage of gastrointestinal tract, unspecified 12/13/2011 Had bleeding hemorrhoids in 2011; normal colonoscopy Internal hemorrhoids without mention of complication 12/13/2011 Mixed hyperlipidemia 05/23/2006 Obesity (BMI 30.0-34.9) AYRY (obstructive sleep apnea) Uses BiPAP occasionally Other nonspecific abnormal finding 05/23/2006 CK Elevation Snoring PAST SURGICAL HISTORY Procedure Laterality Date ADENOIDECTOMY PRIMARY <AGE 12 Adenoidectomy ANTERIOR COLPORRAPHY RPR CYSTOCELE W/CYSTO Cystocele repair APPENDECTOMY APPENDECTOMY HX ARTHRP KNE CONDYLE&PLATU MEDIAL&LAT COMPARTMENTS 07/10/2015 right BACK SURGERY HX COLONOSCOPY 02/22/2022 COLONOSCOPY FLX DX W/COLLJ SPEC WHEN PFRMD 12/13/2011 Colonoscopy repeat 10 years EGD W/O BRSH SPEC VARICIES INJ 02/22/2022 ESOPHAGOGASTRODUODENOSCOPY TRANSORAL DIAGNOSTIC 02/09/2016 EGD INCISE FINGER TENDON SHEATH Right 08/10/2021 Right ring trigger finger release JOINT REPLACEMENT HX LAPS ABD PRTM&OMENTUM DX W/WO SPEC BR/WA SPX Laparoscopy LAPS SURG CHOLECYSTECTOMY W/CHOLANGIOGRAPHY 10/07/2006 LIG/TRNSXJ FLP TUBE ABDL/VAG APPR UNI/BI Tubal ligation PAST SURGICAL HISTORY OF 06/22/2010 right knee arthroscopy- by Dr Dawson ([facility]) PAST SURGICAL HISTORY OF 04/27/2020 low back surgery at [facility];s/p L4 laminectomy, decompression of L4-5 canal stenosis with bilateral L4,L5 root foraminotomies TONSILLECTOMY PRIMARY/SECONDARY <AGE 12 Tonsillectomy VAGINAL HYSTERECTOMY UTERUS 250 GM/< Hysterectomy, vaginal for menorrhagia ALLERGIES Cephalosporins, Dilaudid [Hydromorphone (Bulk)], Dust Mites, Paxil [Paroxetine], Penicillins, Prednisone, Prozac [Fluoxetine Hcl], Pseudoephedrine, and Vicodin [Hydrocodone-Acetaminophen] MEDICATIONS cefdinir (OMNICEF) 300 mg capsule Take 1 capsule by mouth twice daily for 10 days. Nebulizer and Compressor For Neb Use for albuterol and ipratropium nebulizer treatments every 4 hours as needed sucralfate (CARAFATE) 1 gram tablet Take 1 tablet by mouth three times daily before meals. ibuprofen (MOTRIN) 600 mg tablet Take 1 tablet by mouth every 12 hours. atenolol (TENORMIN) 50 mg tablet Take 1 tablet by mouth once daily. busPIRone (BUSPAR) 15 mg tablet Take 0.5 tablets by mouth twice daily. furosemide (LASIX) 20 mg tablet Take 1 tablet by mouth once daily. fluticasone (FLONASE) 50 mcg/actuation nasal spray Use 2 Sprays in each nostril once daily. Rinse mouth after use. gemfibrozil (LOPID) 600 mg tablet Take 1 tablet by mouth twice daily. metFORMIN ER (GLUCOPHAGE XR) 500 mg 24 hr tablet Take 1 tablet by mouth twice daily before meals. sertraline (ZOLOFT) 100 mg tablet Take 2 tablets by mouth once daily. traZODone (DESYREL) 100 mg tablet Take 1 tablet by mouth daily at bedtime. ALPRAZolam (XANAX) 0.5 mg tablet Take 1 tablet by mouth at bedtime as needed for up to 120 days. Donot start before April 10, 2023. gabapentin (NEURONTIN) 300 mg capsule Take 2 capsules by mouth every morning AND 3 capsules every evening. Do all this for 120 days. albuterol HFA (PROAIR HFA) 90 mcg/actuation inhaler Inhale 2 Puffs as instructed every 4 hours as needed for wheezing/shortness of breath. ursodiol (ACTIGALL) 300 mg capsule Take 300 mg by mouth twice daily. albuterol (PROVENTIL) 2.5 mg /3 mL (0.083 %) nebulizer solution Use 3 mL via nebulizer every 4 hours as needed for wheezing/shortness of breath. potassium chloride (K-TAB) 10 mEq tablet Take 1 tablet by mouth daily with breakfast. lisinopril (ZESTRIL) 20 mg tablet Take 1 tablet by mouth once daily. fluticasone-vilanterol (BREO ELLIPTA) 200-25 mcg/dose inhaler Inhale 1 Inhalation as instructed once daily. glipiZIDE (GLUCOTROL) 5 mg tablet Take 1 tablet by mouth once daily. May take extra half to whole pill daily as needed for blood sugar over 200 (Patient taking differently: Take 5 mg by mouth once daily. May take extra half to whole pill daily as needed for blood sugar over 200 Takes if Blood Sugar over 200 but not daily otherwise) ipratropium (ATROVENT) 0.02 % nebulizer solution Use 2.5 mL via nebulizer four times daily. Unit dose pack of 50 (Patient taking differently: Use 0.5 mg via nebulizer four times daily. Unit dose packof 50 As needed) cholecalciferol, vitamin D3, 10 mcg (400 unit) cap Take 1 capsule by mouth once daily. albuterol HFA (VENTOLIN HFA) 90 mcg/actuation inhaler Inhale 2 Puffs as instructed every 4 hours asneeded. Vitamin E, dl, acetate, (VITAMIN E) 400 unit capsule Take 400 Units by mouth once daily. lipase/protease/amylase (CREON ORAL) Take by mouth. Dr. Caceres, unsure of dose Lancets lancets Test blood sugar(s) 2 times daily. Dx: Type 2 DM - Uncontrolled E11.65 Insulin: No blood sugar diagnostic (TRUE METRIX GLUCOSE TEST STRIP) test strip Test blood sugars twice a day DX: E11.65 Insulin: No Use as instructed ketoconazole (NIZORAL) 2 % cream Apply 1 application to affected area once daily. (Patient taking differently: Apply 1 application to affected area once daily. As needed) Blood-Glucose Meter monitoring kit Insurance covered or per patient choice. Test blood sugar twice daily plus as needed for symptoms of blood sugars being too high or low. Dx: Type 2 DM - Uncontrolled E11.65 Insulin:No Nebulizer NEBULIZER FOR HOME USE. DX: J45.42 doxycycline (VIBRA-TABS) 100 mg tablet Take 1 tablet by mouth twice daily for 10 days. BIPAP Initiate BiPAP @ 20/14 cm of water with heated humidification. Ti Max 1.0, Ti Min 0.3, trigger medium, cycle high. Mask (medium AirFit F10 full face mask or per patient preference) optional chin strap (if indicated) , filters, tubing, humidifier and lifetime supplies. FAMILY HISTORY Problem Relation Age of Onset Hypertension Mother history of glaucoma Cervical Cancer Mother Asthma Mother Heart Father [place] x 2 Cancer Father Lung, metastatic to bone, age 77 other (aortic aneurysm) Father 50 Colon Polyps Sister Thyroid Sister Hypothyroidism Thyroid Sister Cancer Sister Lung, LLL. Resected. No Known Problems Daughter No Known Problems Son Social History Tobacco Use Smoking status: Every Day Packs/day: 1.00 Years: 36.00 Additional pack years: 0.00 Total pack years: 36.00 Types: Cigarettes Smokeless tobacco: Never Tobacco comments: Working on smoking cessation. Trying every day to quit but not happening yet. Still working--1PPD (April 03, 2023) Vaping Use Vaping Use: Never used Substance Use Topics Alcohol use: No Drug use: No Review of Systems Constitutional: Positive for chills, fatigue and fever. Negative for weight loss. HENT: Positive for congestion and rhinorrhea. Negative for ear pain, sinus pressure, sinus pain andsore throat. Eyes: Negative for redness. Respiratory: Positive for cough, shortness of breath and wheezing. Negative for apnea and chest tightness. Cardiovascular: Negative for chest pain. Gastrointestinal: Negative for abdominal pain, diarrhea, nausea and vomiting. Musculoskeletal: Negative for arthralgias, back pain, gait problem and myalgias. Skin: Negative for color change, pallor, rash and wound. Allergic/Immunologic: Positive for immunocompromised state. Negative for environmental allergies. Neurological: Negative for headaches. Hematological: Negative for adenopathy. Does not bruise/bleed easily. Psychiatric/Behavioral: Negative for agitation and behavioral problems. Objective BP 144/88 Pulse 64 Temp 36.5 C (97.7 F) Resp 16 Wt 90.5 kg (199 lb 9.6 oz) SpO2 98% BMI32.22 kg/m Physical Exam Vitals and nursing note reviewed. Constitutional: General: She is not in acute distress. Appearance: Normal appearance. She is obese. She is not ill-appearing, toxic- appearing or diaphoretic. Comments: Odor of tobacco smoke HENT: Head: Normocephalic and atraumatic. Right Ear: Ear canal and external ear normal. Left Ear: Ear canal and external ear normal. Nose: Nose normal. No congestion or rhinorrhea. Mouth/Throat: Mouth: Mucous membranes are moist. Pharynx: No oropharyngeal exudate or posterior oropharyngeal erythema. Eyes: General: Right eye: No discharge. Left eye: No discharge. Extraocular Movements: Extraocular movements intact. Conjunctiva/sclera: Conjunctivae normal. Pupils: Pupils are equal, round, and reactive to light. Cardiovascular: Rate and Rhythm: Normal rate and regular rhythm. Pulses: Normal pulses. Heart sounds: Normal heart sounds. No murmur heard. No friction rub. Pulmonary: Effort: Pulmonary effort is normal. No respiratory distress. Breath sounds: Normal breath sounds. No stridor. No wheezing, rhonchi or rales. Comments: Harsh cough with deep inspiration Chest: Chest wall: No tenderness. Abdominal: General: Abdomen is flat. There is no distension. Palpations: Abdomen is soft. There is no mass. Tenderness: There is no abdominal tenderness. There is no right CVA tenderness, left CVA tenderness, guarding or rebound. Hernia: No hernia is present. Musculoskeletal: General: No swelling, tenderness, deformity or signs of injury. Normal range of motion. Cervical back: Normal range of motion and neck supple. No rigidity. Right lower leg: No edema. Left lower leg: No edema. Lymphadenopathy: Cervical: No cervical adenopathy. Skin: General: Skin is warm and dry. Coloration: Skin is not jaundiced or pale. Findings: No bruising, erythema, lesion or rash. Neurological: General: No focal deficit present. Mental Status: She is alert and oriented to person, place, and time. Cranial Nerves: No cranial nerve deficit. Sensory: No sensory deficit. Motor: No weakness. Coordination: Coordination normal. Gait: Gait normal. Psychiatric: Mood and Affect: Mood normal. Behavior: Behavior normal. Thought Content: Thought content normal. Judgment: Judgment normal. Assessment and Plan ASSESSMENT/PLAN: 1. Acute cough - ICD9: 786.2, ICD10: R05.1 (primary diagnosis) X 4 days Progressively worsening. - XR CHEST 2V FRONTAL/LAT-bilateral pleural effusions 2. Asthma with COPD with exacerbation (HCC) - ICD9: 493.22, ICD10: J44.1, J45.901 - Factors affecting control of asthma include upper respiratory infection, pollens/allergens, tobacco smoke, and weather change - Continue current medications - Start Doxcy Patient declines Prednisone - Avoidance of triggers recommended - Follow up on 05/31 as scheduled. Discussed red flags Deena Ivey APRN.HEIDY documented in this encounterUniversity Hospitals Beachwood [facility]09-17-2023 Hospital Discharge instructions Additional Instructions Please list the drug category cephalosporins as a allergen from now on. Do not take the cefdinir that was prescribed secondary to your allergy. It will take typically 3 to 5 days for the allergic reaction to resolve and you may continue [id number] Benadryl for itch relief if needed. Your urine sample today shows no bacteria to indicate infection but the CT scan does show slight bladder wall thickening with surrounding inflammation which could be the cause of your recurrent pain. Secondary to this follow-up with urology to discuss further testing and treatment options and return to the ER should you have any further concernsWSumma [facility] Work Phone: [phone] 169-866409-13-2023 Miscellaneous Notes* Telephone Encounter - Sriram Cabrales RN - 05/22/2023 4:13 PM EDT Patient calling to say she was seen in on 05/20 for symptoms of UTI. She is taking Macrobid and states her symptoms are not getting worse but not yet improving. She says she had a fever on Saturday but took Tylenol before being seen in and still has low grade fever today. Advised patient to continue antibiotic as prescribed. Scheduled follow up appointment with PCP on Saturday if symptoms persist. Sriram Cabrales, RN documented in this encounterUniversity Hospitals Beachwood [facility] Center08-16-2023 History of Present illness Narrative* Janeen Leila CARI Deng - 04/24/2023 1:30 PM EDT Images from the original note were not included. Patient: Garland De Santiago PCP: Willam Estrada MD CC: follow up HPI: Garland De Santiago 62 year old female current daily smoker, 36 pack years, with PMH significantfor allergic rhinitis, anxiety, depression, DM, HTN, hyperlipidemia, YARY on BiPAP, and emphysema. Current therapy consists of Breo with as needed Albuterol. Today, patient is tolerating Breo well. Daily cough productive of white phlegm. Frequent wheezing. Exertional dyspnea with minimal exertion. She reports increased fatigue/tiredness for the past couple of months. No fevers, chills or night sweats. No unintended weight loss. Is being followed by MIGUEL Savage, at [facility]. Has bloating and abdominal pain. Currently smoking 1.5 ppd. She is not in a place today to quit smoking. She reports increased family stress and she is concerned about her health. She is sure she has cancer and it just hasn't been discovered. She had a CA 19-9 drawn by GI which was elevated and is in the process of being worked up. PAST MEDICAL HISTORY Diagnosis Date Allergic rhinitis, cause unspecified 02/10/2007 Anxiety Arthritis Asthma 02/10/2007 Centrilobular emphysema (HCC) Depression Psychiatrist managing (Dr. Bedolla) DM type 2 (diabetes mellitus, type 2) (HCC) Essential hypertension 05/23/2006 Hemorrhage of gastrointestinal tract, unspecified 12/13/2011 Had bleeding hemorrhoids in 2011; normal colonoscopy Internal hemorrhoids without mention of complication 12/13/2011 Mixed hyperlipidemia 05/23/2006 Obesity (BMI 30.0-34.9) YARY (obstructive sleep apnea) Uses BiPAP occasionally Other nonspecific abnormal finding 05/23/2006 CK Elevation Snoring Allergies: Dilaudid [Hydromorp* Mental Status Change Dust Mites Paxil [Paroxetine] Intolerance Comment:excessive sweating Penicillins Hives, Other: See Comments Comment:Any medication with penicillin in it. Had been given amoxicillin in 2011 and had reactionGiven test dose of 2cc's on 08/17/2019 causing sever flushing along with hypotension Prednisone Intolerance Comment:Elevated BS, ER Prozac [Fluoxetine * Mental Status Change, Diarrhea Pseudoephedrine Intolerance Comment:Heart racing Vicodin [Hydrocodon* GI Upset ibuprofen (MOTRIN) 600 mg tablet Take 1 tablet by mouth every 12 hours. atenolol (TENORMIN) 50 mg tablet Take 1 tablet by mouth once daily. busPIRone (BUSPAR) 15 mg tablet Take 0.5 tablets by mouth twice daily. furosemide (LASIX) 20 mg tablet Take 1 tablet by mouth once daily. fluticasone (FLONASE) 50 mcg/actuation nasal spray Use 2 Sprays in each nostril once daily. Rinse mouth after use. gemfibrozil (LOPID) 600 mg tablet Take 1 tablet by mouth twice daily. metFORMIN ER (GLUCOPHAGE XR) 500 mg 24 hr tablet Take 1 tablet by mouth twice daily before meals. sertraline (ZOLOFT) 100 mg tablet Take 2 tablets by mouth once daily. traZODone (DESYREL) 100 mg tablet Take 1 tablet by mouth daily at bedtime. ALPRAZolam (XANAX) 0.5 mg tablet Take 1 tablet by mouth at bedtime as needed for up to 120 days. Donot start before April 10, 2023. gabapentin (NEURONTIN) 300 mg capsule Take 2 capsules by mouth every morning AND 3 capsules every evening. Do all this for 120 days. albuterol HFA (PROAIR HFA) 90 mcg/actuation inhaler Inhale 2 Puffs as instructed every 4 hours as needed for wheezing/shortness of breath. ursodiol (ACTIGALL) 300 mg capsule Take 300 mg by mouth twice daily. albuterol (PROVENTIL) 2.5 mg /3 mL (0.083 %) nebulizer solution Use 3 mL via nebulizer every 4 hours as needed for wheezing/shortness of breath. potassium chloride (K-TAB) 10 mEq tablet Take 1 tablet by mouth daily with breakfast. lisinopril (ZESTRIL) 20 mg tablet Take 1 tablet by mouth once daily. fluticasone-vilanterol (BREO ELLIPTA) 200-25 mcg/dose inhaler Inhale 1 Inhalation as instructed once daily. glipiZIDE (GLUCOTROL) 5 mg tablet Take 1 tablet by mouth once daily. May take extra half to whole pill daily as needed for blood sugar over 200 ipratropium (ATROVENT) 0.02 % nebulizer solution Use 2.5 mL via nebulizer four times daily. Unit dose pack of 50 cholecalciferol, vitamin D3, 10 mcg (400 unit) cap Take 1 capsule by mouth once daily. (Patient nottaking: Reported on 04/03/2023) albuterol HFA (VENTOLIN HFA) 90 mcg/actuation inhaler Inhale 2 Puffs as instructed every 4 hours asneeded. Vitamin E, dl, acetate, (VITAMIN E) 400 unit capsule Take 400 Units by mouth once daily. lipase/protease/amylase (CREON ORAL) Take by mouth. Dr. Caceres, unsure of dose Lancets lancets Test blood sugar(s) 2 times daily. Dx: Type 2 DM - Uncontrolled E11.65 Insulin: No blood sugar diagnostic (TRUE METRIX GLUCOSE TEST STRIP) test strip Test blood sugars twice a day DX: E11.65 Insulin: No Use as instructed ketoconazole (NIZORAL) 2 % cream Apply 1 application to affected area once daily. Blood-Glucose Meter monitoring kit Insurance covered or per patient choice. Test blood sugar twice daily plus as needed for symptoms of blood sugars being too high or low. Dx: Type 2 DM - Uncontrolled E11.65 Insulin:No Nebulizer NEBULIZER FOR HOME USE. DX: J45.42 BIPAP Initiate BiPAP @ 20/14 cm of water with heated humidification. Ti Max 1.0, Ti Min 0.3, trigger medium, cycle high. Mask (medium AirFit F10 full face mask or per patient preference) optional chin strap (if indicated) , filters, tubing, humidifier and lifetime supplies. (Patient not taking: Reported on 04/03/2023) Social History Tobacco Use Smoking status: Every Day Packs/day: 1.00 Years: 36.00 Additional pack years: 0.00 Total pack years: 36.00 Types: Cigarettes Smokeless tobacco: Never Tobacco comments: Working on smoking cessation. Trying every day to quit but not happening yet. Still working--1PPD (April 03, 2023) Vaping Use Vaping Use: Never used Substance Use Topics Alcohol use: No Drug use: No Family History Problem Relation Age of Onset Hypertension Mother history of glaucoma Cervical Cancer Mother Asthma Mother Heart Father [place] x 2 Cancer Father Lung, metastatic to bone, age 77 other (aortic aneurysm) Father 50 Colon Polyps Sister Thyroid Sister Hypothyroidism Thyroid Sister Cancer Sister Lung, LLL. Resected. No Known Problems Daughter No Known Problems Son PAST SURGICAL HISTORY Procedure Laterality Date ADENOIDECTOMY PRIMARY <AGE 12 Adenoidectomy ANTERIOR COLPORRAPHY RPR CYSTOCELE W/CYSTO Cystocele repair APPENDECTOMY APPENDECTOMY HX ARTHRP KNE CONDYLE&PLATU MEDIAL&LAT COMPARTMENTS 07/10/2015 right BACK SURGERY HX COLONOSCOPY 02/22/2022 COLONOSCOPY FLX DX W/COLLJ SPEC WHEN PFRMD 12/13/2011 Colonoscopy repeat 10 years EGD W/O BRSH SPEC VARICIES INJ 02/22/2022 ESOPHAGOGASTRODUODENOSCOPY TRANSORAL DIAGNOSTIC 02/09/2016 EGD INCISE FINGER TENDON SHEATH Right 08/10/2021 Right ring trigger finger release JOINT REPLACEMENT HX LAPS ABD PRTM&OMENTUM DX W/WO SPEC BR/WA SPX Laparoscopy LAPS SURG CHOLECYSTECTOMY W/CHOLANGIOGRAPHY 10/07/2006 LIG/TRNSXJ FLP TUBE ABDL/VAG APPR UNI/BI Tubal ligation PAST SURGICAL HISTORY OF 06/22/2010 right knee arthroscopy- by Dr Dawson ([facility]) PAST SURGICAL HISTORY OF 04/27/2020 low back surgery at [facility];s/p L4 laminectomy, decompression of L4-5 canal stenosis with bilateral L4,L5 root foraminotomies TONSILLECTOMY PRIMARY/SECONDARY <AGE 12 Tonsillectomy VAGINAL HYSTERECTOMY UTERUS 250 GM/< Hysterectomy, vaginal for menorrhagia I reviewed the past medical history, family history, social history and surgical history with changes noted above and updated in EMR. IMMUNIZATIONS Prevnar 13 - xx Pneumovax 23 - 09/09/2010, 03/22/2010 Influenza - 08/07/2022 COVID-19 - 04/06/2022, 08/20/2022, 08/04/2021, 12/15/2020, 11/16/2020 ROS: General: No unintentional weight loss. No fevers, chills, or night sweats. Eyes, Ears, nose, throat: Post nasal drip, rhinorrhea. No purulent nasal discharge, epistaxis. No hoarseness. Vision stable. Cardiac: No angina, edema, orthopnea. Resp: See HPI. GI: Heartburn. No dysphagia. Chronic diarrhea. Musculoskeletal: No pain. Neuro: Sinus headaches. No focal weakness, tremor. Skin: No rash. Otherwise negative. PHYSICAL EXAMINATION: BP 118/80 (BP Site: Right Arm, BP Position: Sitting, BP Cuff Size: Regular Adult) Pulse 76 Resp14 Ht 167.6 cm (5' 6) Wt 91.2 kg (201 lb) SpO2 96% BMI 32.44 kg/m Gen: No acute distress. Cooperative with examination. HEENT: Normocephalic. Sclera, conjunctiva clear. Oral hygeine and dentition good. No thrush. Resp: No stridor, accessory respiratory muscle use, supra-sternal or intercostal retractions. No wheezes, crackles. CV: Regular rythm. Heart tones normal. Radial pulses normal. Abd: Non distended. MSK: No kyphoscoliosis. Ext: Warm and well perfused. No clubbing, cyanosis, edema. Skin: No rash, ecchymoses. Neuro: Mental status normal. Affect normal. No tremor. DATA: PFT, 04/24/2023 CXR, 11/21/2022 IMPRESSION: Peribronchial cuffing which may be seen with small airways inflammation/bronchitis Mild right infrahilar opacity, atelectasis versus bronchopneumonia in the appropriate clinical setting RESULT: Lines, tubes, and devices: None. Lungs and pleura: Mild peribronchial cuffing. Mild right infrahilar opacity.. No lung mass. No pleural effusion. No pneumothorax. Cardiomediastinal silhouette: Normal cardiomediastinal silhouette. Bones and soft tissues: Degenerative changes are present within the thoracic spine. LDCT, 10/2022 [facility] Lung RADS 2 Follow up LDCT in 1 year ASSESSMENT/PLAN: 1. Stage 2 moderate COPD by GOLD classification (HCC) - ICD9: 496, ICD10: J44.9 (primary diagnosis) PFTs stable. Continue Breo with as needed Albuterol. Rinse mouth after each use to help prevent oral thrush. Smoking cessation is critical. Will re-address when patient is in a better place emotionally. 2. Tobacco abuse - ICD9: 305.1, ICD10: Z72.0 Cessation encouraged. Physiologic and physical aspects of tobacco addiction as well as strategies for quitting were discussed. Counseling was given focusing on the harmful effects of this addiction especially given the patient's medical condition(s) which will be worsened because of the chemicals in tobacco. Portions of this documentation were copied and pasted from previous office visit notes in order to provide a cohesive continuity of the history. The note has been reviewed and edited and updated as necessary. Leila Rubi PA-C documented in this encounterUniversity Hospitals Beachwood [facility] Center08-16-2023 History of Present illness Narrative* Lucy Chandra RPFT - 04/24/2023 1:08 PM EDT PULM FUNCTION SMARTBLOCK: Provider: Leila Rubi PA-C Assisting Tech: Lucy Chandra RPFT Spirometry: 1 DLCO: 1 documented in this encounterUniversity Hospitals Beachwood [facility] Center07-06-2023 History of Present illness Narrative* Rola Browne RN - 03/14/2023 5:02 PM EDT CDM Telephonic Outreach Provider Action/FYI history of COPD unable to reach patient x1, left VM Contacted for: Goals/Falls/ADL Update Contact made with patient: No, left message. Rola Browne RN March 15, 2023 12:08 PM and Engagement Contact made with patient: No, left message. Rola Browne RN March 15, 2023 12:08 PM documented in this encounterUniversity Hospitals Beachwood [facility] Center07-03-2023 Miscellaneous Notes* Telephone Encounter - Karissa Collier RN - 03/11/2023 2:54 PM EDT Patient requesting ProAor inhaler, if provider agreeable. Script pended for review. Thank you. documented in this encounterUniversity Hospitals Beachwood [facility] Center07-03-2023 Miscellaneous Notes* Telephone Encounter - Karissa Collier RN - 03/11/2023 1:35 PM EDT Medication refill requested by Pharmacy Please review and advise. Requested Prescriptions Pending Prescriptions Disp Refills albuterol (PROVENTIL) 2.5 mg /3 mL (0.083 %) nebulizer solution 50 mL 5 Sig: Use 3 mL via nebulizer every 4 hours as needed for wheezing/shortness of breath. potassium chloride (K-TAB) 10 mEq tablet 30 tablet 11 Sig: Take 1 tablet by mouth daily with breakfast. lisinopril (ZESTRIL) 20 mg tablet 30 tablet 11 Sig: Take 1 tablet by mouth once daily. Last encounter with this provider: 12/18/2022 Next appt: 04/03/2023 Allergies: Dilaudid [Hydromorp* Mental Status Change Dust Mites Paxil [Paroxetine] Intolerance Comment:excessive sweating Penicillins Hives, Other: See Comments Comment:Any medication with penicillin in it. Had been given amoxicillin in 2011 and had reactionGiven test dose of 2cc's on 08/17/2019 causing sever flushing along with hypotension Prednisone Intolerance Comment:Elevated BS, ER Prozac [Fluoxetine * Mental Status Change, Diarrhea Pseudoephedrine Intolerance Comment:Heart racing Vicodin [Hydrocodon* GI Upset Last 1 Encounter BP Readings: Date: BP: 12/21/2022 108/70 LUNG CANCER SCREENING Never done DIABETIC FOOT EXAM due on 03/31/2022 WBC (k/uL) Date Value 12/19/2022 9.10 Hemoglobin (g/dL) Date Value 12/19/2022 15.6 (H) Platelet Count (k/uL) Date Value 12/19/2022 306 Glucose (mg/dL) Date Value 12/19/2022 178 (H) BUN (mg/dL) Date Value 12/19/2022 11 Creatinine (mg/dL) Date Value 12/19/2022 0.49 (L) Sodium (mmol/L) Date Value 12/19/2022 140 Potassium (mmol/L) Date Value 12/19/2022 3.5 (L) Calcium, Total (mg/dL) Date Value 12/19/2022 8.9 Alkaline Phosphatase (U/L) Date Value 12/19/2022 55 Bilirubin, Total (mg/dL) Date Value 12/19/2022 0.2 AST (U/L) Date Value 12/19/2022 27 ALT (U/L) Date Value 12/19/2022 18 Cholesterol, Total (mg/dL) Date Value 12/19/2022 153 Triglyceride (mg/dL) Date Value 12/19/2022 334 (H) TSH (uU/mL) Date Value 04/20/2019 1.770 Current Outpatient Medications on File Prior to Visit Medication Sig ALPRAZolam (XANAX) 0.5 mg tablet Take 1 tablet by mouth at bedtime as needed for up to 60 days. albuterol (PROVENTIL) 2.5 mg /3 mL (0.083 %) nebulizer solution Use 3 mL via nebulizer every 4 hours as needed for wheezing/shortness of breath. fluticasone-vilanterol (BREO ELLIPTA) 200-25 mcg/dose inhaler Inhale 1 Inhalation as instructed once daily. (Patient not taking: Reported on 12/21/2022) gabapentin (NEURONTIN) 300 mg capsule Take 2 capsules by mouth every morning AND 3 capsules every evening. Do all this for 180 days. glipiZIDE (GLUCOTROL) 5 mg tablet Take 1 tablet by mouth once daily. May take extra half to whole pill daily as needed for blood sugar over 200 metFORMIN ER (GLUCOPHAGE XR) 500 mg 24 hr tablet Take 1 tablet by mouth twice daily before meals. ipratropium (ATROVENT) 0.02 % nebulizer solution Use 2.5 mL via nebulizer four times daily. Unit dose pack of 50 cholecalciferol, vitamin D3, 10 mcg (400 unit) cap Take 1 capsule by mouth once daily. albuterol HFA (VENTOLIN HFA) 90 mcg/actuation inhaler Inhale 2 Puffs as instructed every 4 hours asneeded. Vitamin E, dl, acetate, (VITAMIN E) 400 unit capsule Take 400 Units by mouth once daily. fluticasone (FLONASE) 50 mcg/actuation nasal spray Use 2 Sprays in each nostril once daily. Rinse mouth after use. sertraline (ZOLOFT) 100 mg tablet Take 2 tablets by mouth once daily. busPIRone (BUSPAR) 15 mg tablet Take 0.5 tablets by mouth twice daily. gemfibrozil (LOPID) 600 mg tablet Take 1 tablet by mouth twice daily. atenolol (TENORMIN) 50 mg tablet Take 1 tablet by mouth once daily. furosemide (LASIX) 20 mg tablet Take 1 tablet by mouth once daily. potassium chloride (K-TAB) 10 mEq tablet Take 1 tablet by mouth daily with breakfast. traZODone (DESYREL) 100 mg tablet Take 1 tablet by mouth daily at bedtime. lisinopril (ZESTRIL, PRINIVIL) 20 mg tablet Take 1 tablet by mouth once daily. lipase/protease/amylase (CREON ORAL) Take by mouth. Dr. Caceres, unsure of dose ibuprofen (MOTRIN) 600 mg tablet Take 1 tablet by mouth every 12 hours. Lancets lancets Test blood sugar(s) 2 times daily. Dx: Type 2 DM - Uncontrolled E11.65 Insulin: No blood sugar diagnostic (TRUE METRIX GLUCOSE TEST STRIP) test strip Test blood sugars twice a day DX: E11.65 Insulin: No Use as instructed ketoconazole (NIZORAL) 2 % cream Apply 1 application to affected area once daily. Blood-Glucose Meter monitoring kit Insurance covered or per patient choice. Test blood sugar twice daily plus as needed for symptoms of blood sugars being too high or low. Dx: Type 2 DM - Uncontrolled E11.65 Insulin:No Nebulizer NEBULIZER FOR HOME USE. DX: J45.42 BIPAP Initiate BiPAP @ 20/14 cm of water with heated humidification. Ti Max 1.0, Ti Min 0.3, trigger medium, cycle high. Mask (medium AirFit F10 full face mask or per patient preference) optional chin strap (if indicated) , filters, tubing, humidifier and lifetime supplies. Karissa Collier RN documented in this encounterUniversity Hospitals Beachwood Medical Center06-02-2023 Miscellaneous Notes* Telephone Encounter - Willam Estrada MD - 02/08/2023 12:48 PM EDT The following approved medication requests have been transmitted electronically. Requested Prescriptions Signed Prescriptions Disp Refills ALPRAZolam (XANAX) 0.5 mg tablet 30 tablet 1 Sig: Take 1 tablet by mouth at bedtime as needed for up to 60 days. Authorizing Provider: WILLAM ESTRADA MD * Telephone Encounter - Gillian Higginbotham RN - 02/08/2023 10:15 AM EDT Patient has been identified by name and date of : Yes, Gillian Higginbotham RN Date 02/08/2023 Time 10:16 am Pharmacy phones for refill(s): Requested Prescriptions Pending Prescriptions Disp Refills ALPRAZolam (XANAX) 0.5 mg tablet 30 tablet 1 Sig: Take 1 tablet by mouth at bedtime as needed for up to 60 days. Date of last office visit with pcp: 12/18/2022 Future appt: 04/03/2023 Last 2 Encounter Wt Readings: Date: Wt: 12/21/2022 92.5 kg (204 lb) 12/18/2022 91.2 kg (201 lb) Previous labs/tests for medication: Blood Pressure: BUN (mg/dL) Date Value 12/19/2022 11 08/14/2021 14 Sodium (mmol/L) Date Value 12/19/2022 140 08/14/2021 142 Last 1 Encounter BP Readings: Date: BP: 12/21/2022 108/70 Liver Function: ALT (U/L) Date Value 12/19/2022 18 08/14/2021 9 AST (U/L) Date Value 12/19/2022 27 08/14/2021 16 Please advise. Thank you. Gillian Higginbotham RN documented in this encounterUniversity Hospitals Beachwood Medical Center04-22-[address] Lei [facility] December 29, 2022 11:08pm Note Date/Time December 29, 2022 8:1 6pm [facility] Medical Records Department [address] [place] [address] Emergency Department Summary 12/29/22 MR#: [id number] Acct: [id number] Name: GARLAND DE SANTIAGO Rep #:[id number] : 1960 62 From: Booker Barrett MD PCP: Dr. Willam Estrada MD Status:RE G ER Location: ED HPI History of Present Illness Chief Complaint: Shortness of Breath Narrative Narrative: 62-year-old female past medical history of COPD, diabetes, smoker, presents withdyspnea and increasing shortness of breath over the last week. She is having dyspnea on exertion and has chest tightness. On occasion, she has chest pressure. She smokes a pack and a half a day. She denies any fever but has occasional cough with sputum production. She states that at the end of November, last month, she saw urgent care and was told that she may have bronchial pneumonia. She was placed on doxycycline which was ineffective for her. She went to her primary care physician they put her on another antibiotic, but also on prednisone and she states she had a bad reaction. She presents because of the increasing shortness of breath and dyspnea with chest tightness. [facility] Medical History Abdominal pain Anxiety and depression Arthritis COPD (chronic obstructive pulmonary disease) Depression Diarrhea Elevated CPK Fatty liver Hemorrhage of gastrointestinal tract Mixed hyperlipidemia YARY treated with BiPAP Osteoarthritis Postoperative anemia Type 2 diabetes mellitus Home Medications gemfibrozil 600 mg tablet 600 mg PO BID 06/13/14 [History Last Taken 07/19/15 600 MG] trazodone 100 mg tablet 100 mg PO QHS 06/13/14 [History Last Taken 07/19/15 100 MG] alprazolam 0.5 mg tablet 0.5 mg PO QHS ANXIETY 07/30/15 [History Last Taken 2 Weeks Ago ~07/16/15 2 TABS] lisinopril 20 mg tablet 20 mg PO DAILY #30 TABLETS 08/02/15 [Rx Last Taken Unknown] albuterol sulfate 90 mcg/actuation aerosol inhaler (Ventolin HFA) 1 - 2 puff inhalation Q4H PRN PRN Wheezing ##1 08/08/15 [Rx Last Taken Unknown] furosemide 20 mg tablet 20 mg PO DAILY 09/26/15 [History Last Taken Unknown] buspirone 5 mg tablet 7.5 mg PO BID 07/11/18 [History Last Taken Unknown] metformin 500 mg tablet,extended release 24 hr 500 mg PO BID 07/11/18 [History Last Taken Unknown] potassium chloride 10 mEq tablet,extended release(part/cryst) 10 meq PO DAILY 07/11/18 [History Last Taken Unknown] sertraline 100 mg tablet (Zoloft) 200 mg PO QHS 07/11/18 [History Last Taken Unknown] fluticasone furoate 100 mcg-vilanterol 25 mcg/dose inhalation powder 1 ea IH DAILY 07/29/19 [History Last Taken Unknown] ipratropium bromide 0.02 % solution for inhalation 2.5 ml inhalation Q6H PRN shortness of breath or wheezing #75 mL 08/21/21 [Rx Last Taken Unknown] albuterol sulfate 2.5 mg/3 mL (0.083 %) solution for nebulization 2.5 mg inhalation Q4H PRN 11/15/21 [History Last Taken Unknown] atenolol 50 mg tablet 50 mg PO DAILY 11/15/21 [History Last Taken Unknown] cetirizine 10 mg tablet 10 mg PO DAILY PRN 11/15/21 [History Last Taken Unknown] gabapentin 300 mg capsule (Neurontin) 600 mg PO .COMPLEX 11/15/21 [History Last Taken Unknown] ibuprofen 600 mg tablet 600 mg PO BID 11/15/21 [History Last Taken Unknown] ketoconazole 2 % topical cream 1 applic topical DAILY 11/15/21 [History Last Taken Unknown] aspirin 81 mg tablet,delayed release 81 mg PO DAILY #1 TAB 01/04/22 [Rx Last Taken Unknown] fluticasone propionate 50 mcg/actuation nasal spray,suspension (Allergy Relief (fluticasone)) 2 spray intranasal DAILY 01/04/22 [History Last Taken Unknown] vitamin E mixed 400 unit capsule 800 unit PO DAILY 02/16/22 [History Last Taken Unknown] ursodiol 300 mg capsule 300 mg PO BID #60 caps 02/26/22 [Rx Last Taken Unknown] Allergy/AdvReac Type Severity Reaction Status Date / Time hydromorphone [From Dilaudid] Allergy Intermediate Altered Verified 12/29/22 20:14 mental status pseudoephedrine Allergy Intermediate Tachycardia Verified 12/29/22 20:14 acetaminophen [From Vicodin] Allergy Upset Verified 12/29/22 20:14 Stomach fluoxetine [From Prozac] Allergy Chest Verified 12/29/22 20:14 tightness house dust mite Allergy NEEDS Verified 12/29/22 20:14 FOLLOW-UP hydrocodone [From Vicodin] Allergy Upset Verified 12/29/22 20:14 Stomach Penicillins Allergy Hives Verified 12/29/22 20:14 Family History Mother Glaucoma Cervical cancer Asthma Father , at 77 Myocardial infarction Cancer Lung, metastatic to bone CAD (coronary artery disease) History of coronary artery bypass surgery Aortic aneurysm and dissection Sister Colon polyp Thyroid disorder Lung cancer Surgical History H/O vaginal hysterectomy History of appendectomy History of back surgery History of bladder suspension procedure History of lumbar laminectomy History of total right knee replacement Hx of cholecystectomy Hx of tonsillectomy S/P total knee arthroplasty Tubal ligation status Social History Smoking Status: Current every day smoker tobacco type: cigarettes alcohol intake: never substance use type: does not use caffeine: Yes Type: carbonated beverages Number of servings: 2 ROS ROS ED ROS Narrative Constitutional: No fever, no chills. HEENT: No sore throat. No neck pain. No loss of vision. No rhinorrhea. Cardiovascular: No chest pain. No palpitations. Bilateral pedal edema. Respiratory: Positive cough occasional phlegm production, positive dyspnea on exertion and increasing shortness of breath. Abdominal: No abdominal pain. No nausea. No vomiting. Genitourinary: No dysuria. No hematuria. Musculoskeletal: No myalgias. No arthralgias. Neurologic: No headaches. No dizziness. No lightheadedness. Skin: No rash. No change in color. Psychiatric: No depression. No anxiety. EXAM Physical Exam Narrative Exam Narrative: Afebrile. Vital signs noted. HEENT: Normocephalic. Atraumatic. PERRL, EOMI. Neck soft and supple. No pointtenderness or step off. Cardiovascular: Regular rate and rhythm. No murmurs, rubs, or gallops appreciated. Respiratory: Positive tachypnea. Occasional expiratory wheezing. Gastrointestinal: Abdomen soft, nontender, with normoactive bowel sounds. No rebound or guarding. Neurological: Awake. Alert. Nonfocal, nonlateralizing. Skin: No rash. Normal color. No pallor. Musculoskeletal: No appreciable pitting pedal edema. Full range of motion extremities. Const Vital Signs: 12/29/22 20:00 12/29/22 20:03 12/29/22 20:15 Temperature 97.2 F L 97.2 F L Temperature Source Temporal Temporal Pulse Rate 90 81 Respiratory Rate 26 H 22 H Respiratory Effort Short of Breath Labored Respiratory Pattern Normal Blood Pressure 165/106 H 165/106 H Blood Pressure Mean 125 125 Pulse Ox 98 97 Oxygen Delivery Method Room Air Room Air Room Air 12/29/22 20:32 12/29/22 21:01 Temperature Temperature Source Pulse Rate 78 79 Respiratory Rate 18 18 Respiratory Effort Respiratory Pattern Normal Blood Pressure 133/77 H Blood Pressure Mean 95 Pulse Ox 97 Oxygen Delivery Method Room Air MDM MDM MDM Narrative Medical decision making narrative: Comprehensive work-up was pursued. EKG obtained and interpreted by myself whichdemonstrates normal sinus rhythm at 77 bpm without ectopy or acute ST changes. No STEMI. I feel she is having more of a COPD exacerbation with chest tightness. I will obtain CBC to look for anemia as a cause of her shortness of breath and dyspnea on exertion along with a CMP. I will obtain a troponin and 2-hour troponin although she has had shortness of breath for over 6 hours and intermittent chest tightness. I have lower suspicion for coronary artery disease or DVT/pulmonary embolism. Chest x-ray will be obtained to help rule out pneumonia, and additionally she has already been treated with antibiotics inthe past few weeks. I reviewed the patient's laboratory work and she has a normal white count of 9.4, hemoglobin normal at 14.2, hematocrit 41.6, platelet count normal at 329. Review of electrolyte panel reveals potassium low at 3.2 which was replaced orally with 40 mill equivalents. AST and ALT are normal. Creatinine normal at 0.58 with a BUN of 10. Initial high-sensitivity troponin is 5. This takes careof any chest pain that she has been having over the last week as no evidence of ischemic damage. I do feel that a second troponin at 2 hours would be more reassuring for the patient. I do feel that this is more COPD exacerbation. Smoking cessation was discussed. While glucose is elevated at 167, she has a normal anion gap of 7. I interpreted her chest x-ray independently and see no evidence of an acute pneumonia where antibiotics would be indicated. Additionally, I reviewed the radiology report which confirms my independent interpretation. At this point in time, she is resting comfortably. She has normal pulse ox. I will sign out the patient to the oncoming physician, Dr. Souza,to check the troponin at the 2-hour rufus. As long as it is not showing an increase in her delta troponin, I do feel that she can be discharged safely homewith follow- up to her primary care provider. She may require an albuterol inhaler which she already has, but I will not write her for prednisone because she states that she had a bad reaction. I feel she can be discharged safely home currently pending a negative troponin. Disposition is pending. Patient is in stable condition. History & Record Review Discussion w/independent historian: Patient Additional record(s) reviewed:: Prior outpatient record and Prior ED visit Lab Data Attestation: I reviewed the patient's lab results. Labs: Laboratory Results - last 24 hr 12/29/22 12/29/22 20:20 20:20 WBC 9.4 RBC 4.94 Hgb 14.2 Hct 41.6 MCV 84.2 MCH 28.7 MCHC 34.1 RDW Std Deviation 39.8 RDW Coeff of Rodrigo 13.1 Plt Count 329 MPV 9.1 Immature Gran % (Auto) 0.200 Neut % (Auto) 55.6 Lymph % (Auto) 35.2 Tate % (Auto) 7.0 Eos % (Auto) 1.5 Baso % (Auto) 0.5 Absolute Neuts (auto) 5.2 Absolute Lymphs (auto) 3.31 Nucleated RBC % 0 Sodium 137 Potassium 3.2 L Chloride 105 Carbon Dioxide 25.0 Anion Gap 7 BUN 10 Creatinine 0.58 Estim Creat Clear Calc 94.15 Est GFR (MDRD) Af Amer 136 Est GFR (MDRD) Non-Af 112 BUN/Creatinine Ratio 17.3 Glucose 167 H Calcium 8.6 Total Bilirubin 0.30 AST 35 ALT 39 Alkaline Phosphatase 78 Troponin I High Sens 5 Total Protein 7.5 Albumin 3.7 Globulin 3.8 Albumin/Globulin Ratio 1.0 Radiography Diagnostic Testing: Clinical Impression(s) from Imaging Studies Chest X-Ray 12/29/22 20:16 IMPRESSION: No acute cardiopulmonary disease or major interval change. Electronically Signed: Drew Stephens DO at 21:01 EDT Reading Location ID and State: [address] [place] [address] Tel [phone], Service support , Discharge Plan Triage Chief Complaint: Shortness of Breath ED Provider: Booker Barrett Dx/Rx/DC Orders Clinical Impression: Chest pain, COPD (chronic obstructive pulmonary disease), Shortness of breath, Hypokalemia Instructions: ED COPD Flare, ED Chest Pain, Uncertain Cause, ED Hypokalemia Prescriptions: No Action fluticasone propionate [Allergy Relief (fluticasone)] 50 mcg/actuation spray,suspension 2 spray intranasal DAILY Rx Instructions: administer into each nostril aspirin 81 mg tablet,delayed release (DR/EC) 81 mg PO DAILY Qty: 1 0RF albuterol sulfate 2.5 mg /3 mL (0.083 %) solution for nebulization 2.5 mg inhalation Q4H PRN ketoconazole 2 % cream 1 applic topical DAILY ibuprofen 600 mg tablet 600 mg PO BID cetirizine 10 mg tablet 10 mg PO DAILY PRN atenolol 50 mg tablet 50 mg PO DAILY vitamin E mixed 400 unit capsule 800 unit PO DAILY trazodone 100 MG tablet 100 mg PO QHS Label Comments: Mood/anti-anxiety gemfibrozil 600 MG tablet 600 mg PO BID Label Comments: Cholesterol alprazolam 0.5 MG tablet 0.5 mg PO QHS Label Comments: anti-anxiety TAKES 2 TABS OF 0.5MG @ HS lisinopril 20 MG tablet 20 mg PO DAILY Qty: 30 0RF albuterol sulfate [Ventolin HFA] 1 INHALER inhaler 1 - 2 puff inhalation Q4H PRN PRN (Reason: Wheezing) Qty: 1 0RF furosemide 20 MG tablet 20 mg PO DAILY Label Comments: buspirone 5 MG tablet 7.5 mg PO BID Label Comments: anti-anxiety sertraline [Zoloft] 100 MG tablet 200 mg PO QHS metformin 500 MG tablet 500 mg PO BID potassium chloride 10 MEQ tablet 10 meq PO DAILY gabapentin [Neurontin] 300 mg capsule 600 mg PO .COMPLEX Rx Instructions: 600 mg PO take 2 caps in the am and 3 caps in the evening; fluticasone furoate-vilanterol 1 EACH blister with device 1 ea IH DAILY ipratropium bromide 0.02 % solution 2.5 ml inhalation Q6H PRN (Reason: shortness of breath or wheezing) Qty: 75 2RF ursodiol 300 mg capsule 300 mg PO BID Qty: 60 11RF Primary Care Provider: Willam Estrada Referrals: Willam Estrada MD [Primary Care Provider] - 3-5 Days if not improving What to do if you have Problems For any increased pain, shortness of breath, bleeding, nausea or vomiting, chestpain, or any unexpected problems, contact your Primary Care Provider. Call [facility] ([phone]) or report to the closest Emergency Room. Call 911 if necessary. 12/29/222128 <Electronically signed by Booker Barrett MD> Cosigner Signature (if applicable): CC: Dr. Willam Estrada MD ~ Signed ADDENDUM by Dr. Gerald Souza DO on 12/29/22 at 2308 Signed out to me pending repeat troponin results negative. Symptom-free on reevaluation. Present COPD chest tightness, breathing much better. Discussed tobacco cessation. She reports she has an old nebulizer working on getting another one. She will speak with her PCP with this. She had reaction to prednisone. She has other inhalers. She will follow-up with her PCP return precaution discussed. All questions were answered. 12/29/222307<Electronically signed by Gerald Quintanilla> Cosigner Signature (if applicable): cc: Dr. Willam Estrada MD ~* Signed [facility] Work Phone: 1(235) 619-692904-14-2023 History of Present illness Narrative* Leila Rubi PA-C - 12/21/2022 1:30 PM EDT Patient: Garland De Santiago PCP: Willam Estrada MD CC: COPD/re-establish care HPI: Garland De Santiago 62 year old female current daily smoker, 36 pack years with PMH significant for allergic rhinitis, anxiety, depression, DM, HTN, hyperlipidemia, YARY not compliant with BiPAP, and emphysema. Patient was recently seen in [facility] on 11/21 for cough, SOB, wheezing and fatigue. CXR revealed peribronchial cuffing which may be seen with small airways inflammation/bronchitis and mild right infrahilar opacity, atelectasis versus bronchopneumonia in the appropriate clinical setting and patient was treated with Doxycycline. She then presented to PCP office on 12/05 with persistent symptoms with increased sinusitis symptoms and was prescribed Cefdinir and Prednisone taper. Today, patient states she is feeling better, but not completely resolved. Previously on Breo, however, she was recently changed to Anoro per PCP. She does not feel this is as effective as the Breo. She also reports that she was not very compliant with the Breo. Currently not using rescue bronchodilator, however, when she was sick she was using it 2-3 times daily. Daily cough. Productive of white/yellow phlegm. No hemoptysis. No fevers, chills or night sweats. Variable wheezing. No dyspnea at rest. Exertional dyspnea with climbing stairs, carrying groceries/laundry, walking from parking lot into the office. Post nasal drip. Receives immunotherapy weekly per [facility]. No lower extremity edema. Not compliant with BiPAP. Had difficulty with tolerating mask. Currently smoking 1-1.5 ppd. Quit for an ortho surgery for 14 days, otherwise, has never quit. PAST MEDICAL HISTORY Diagnosis Date Allergic rhinitis, cause unspecified 02/10/2007 Anxiety Arthritis Asthma 02/10/2007 Centrilobular emphysema (HCC) Depression Psychiatrist managing (Dr. Bedolla) DM type 2 (diabetes mellitus, type 2) ([facility]) Essential hypertension 05/23/2006 Hemorrhage of gastrointestinal tract, unspecified 12/13/2011 Had bleeding hemorrhoids in 2011; normal colonoscopy Internal hemorrhoids without mention of complication 12/13/2011 Mixed hyperlipidemia 05/23/2006 Obesity (BMI 30.0-34.9) YARY (obstructive sleep apnea) Uses BiPAP occasionally Other nonspecific abnormal finding 05/23/2006 CK Elevation Snoring Allergies: Dilaudid [Hydromorp* Mental Status Change Dust Mites Paxil [Paroxetine] Intolerance Comment:excessive sweating Penicillins Hives, Other: See Comments Comment:Any medication with penicillin in it. Had been given amoxicillin in 2011 and had reactionGiven test dose of 2cc's on 08/17/2019 causing sever flushing along with hypotension Prednisone Intolerance Comment:Elevated BS, ER Prozac [Fluoxetine * Mental Status Change, Diarrhea Pseudoephedrine Intolerance Comment:Heart racing Vicodin [Hydrocodon* GI Upset umeclidinium-vilanterol (ANORO ELLIPTA) 62.5-25 mcg/actuation inhaler Inhale 1 Inhalation as instructed once daily. Inhale one puff once daily. DO NOT CLICK OPEN UNTIL READY FOR DOSE ALPRAZolam (XANAX) 0.5 mg tablet Take 1 tablet by mouth at bedtime as needed for up to 60 days. albuterol (PROVENTIL) 2.5 mg /3 mL (0.083 %) nebulizer solution Use 3 mL via nebulizer every 4 hours as needed for wheezing/shortness of breath. fluticasone-vilanterol (BREO ELLIPTA) 200-25 mcg/dose inhaler Inhale 1 Inhalation as instructed once daily. gabapentin (NEURONTIN) 300 mg capsule Take 2 capsules by mouth every morning AND 3 capsules every evening. Do all this for 180 days. glipiZIDE (GLUCOTROL) 5 mg tablet Take 1 tablet by mouth once daily. May take extra half to whole pill daily as needed for blood sugar over 200 metFORMIN ER (GLUCOPHAGE XR) 500 mg 24 hr tablet Take 1 tablet by mouth twice daily before meals. ipratropium (ATROVENT) 0.02 % nebulizer solution Use 2.5 mL via nebulizer four times daily. Unit dose pack of 50 cholecalciferol, vitamin D3, 10 mcg (400 unit) cap Take 1 capsule by mouth once daily. albuterol HFA (VENTOLIN HFA) 90 mcg/actuation inhaler Inhale 2 Puffs as instructed every 4 hours asneeded. omeprazole (PRILOSEC) 20 mg capsule Take 1 capsule by mouth daily before breakfast. 1/2 hr before meal. Vitamin E, dl, acetate, (VITAMIN E) 400 unit capsule Take 400 Units by mouth once daily. fluticasone (FLONASE) 50 mcg/actuation nasal spray Use 2 Sprays in each nostril once daily. Rinse mouth after use. cetirizine (ZYRTEC) 10 mg tablet Take 1 tablet by mouth once daily. (Patient not taking: Reported on 12/18/2022) sertraline (ZOLOFT) 100 mg tablet Take 2 tablets by mouth once daily. busPIRone (BUSPAR) 15 mg tablet Take 0.5 tablets by mouth twice daily. gemfibrozil (LOPID) 600 mg tablet Take 1 tablet by mouth twice daily. atenolol (TENORMIN) 50 mg tablet Take 1 tablet by mouth once daily. furosemide (LASIX) 20 mg tablet Take 1 tablet by mouth once daily. potassium chloride (K-TAB) 10 mEq tablet Take 1 tablet by mouth daily with breakfast. traZODone (DESYREL) 100 mg tablet Take 1 tablet by mouth daily at bedtime. lisinopril (ZESTRIL, PRINIVIL) 20 mg tablet Take 1 tablet by mouth once daily. diphenoxylate-atropine (LOMOTIL) 2.5-0.025 mg per tablet Take 1 tablet by mouth four times daily asneeded. (Patient not taking: No sig reported) lipase/protease/amylase (CREON ORAL) Take by mouth. Dr. Caceres, unsure of dose ibuprofen (MOTRIN) 600 mg tablet Take 1 tablet by mouth every 12 hours. diclofenac (VOLTAREN ARTHRITIS PAIN) 1 % topical gel Apply 2-4 g to affected area four times daily as needed (feet pain). (Patient not taking: Reported on 12/18/2022) Lancets lancets Test blood sugar(s) 2 times daily. Dx: Type 2 DM - Uncontrolled E11.65 Insulin: No blood sugar diagnostic (TRUE METRIX GLUCOSE TEST STRIP) test strip Test blood sugars twice a day DX: E11.65 Insulin: No Use as instructed ketoconazole (NIZORAL) 2 % cream Apply 1 application to affected area once daily. Blood-Glucose Meter monitoring kit Insurance covered or per patient choice. Test blood sugar twice daily plus as needed for symptoms of blood sugars being too high or low. Dx: Type 2 DM - Uncontrolled E11.65 Insulin:No Nebulizer NEBULIZER FOR HOME USE. DX: J45.42 BIPAP Initiate BiPAP @ 20/14 cm of water with heated humidification. Ti Max 1.0, Ti Min 0.3, trigger medium, cycle high. Mask (medium AirFit F10 full face mask or per patient preference) optional chin strap (if indicated) , filters, tubing, humidifier and lifetime supplies. Social History Tobacco Use Smoking status: Every Day Packs/day: 1.00 Years: 36.00 Pack years: 36.00 Types: Cigarettes Smokeless tobacco: Never Tobacco comments: Working on smoking cessation. Trying every day to quit but not happening yet. Vaping Use Vaping Use: Never used Substance Use Topics Alcohol use: No Drug use: No Family History Problem Relation Age of Onset Hypertension Mother history of glaucoma Cervical Cancer Mother Asthma Mother Heart Father [place] x 2 Cancer Father Lung, metastatic to bone, age 77 other (aortic aneurysm) Father 50 Colon Polyps Sister Thyroid Sister Hypothyroidism Thyroid Sister Cancer Sister Lung, LLL. Resected. No Known Problems Daughter No Known Problems Son PAST SURGICAL HISTORY Procedure Laterality Date ADENOIDECTOMY PRIMARY <AGE 12 Adenoidectomy ANTERIOR COLPORRAPHY RPR CYSTOCELE W/CYSTO Cystocele repair APPENDECTOMY APPENDECTOMY HX ARTHRP KNE CONDYLE&PLATU MEDIAL&LAT COMPARTMENTS 07/10/2015 right BACK SURGERY HX COLONOSCOPY 02/22/2022 COLONOSCOPY FLX DX W/COLLJ SPEC WHEN PFRMD 12/13/2011 Colonoscopy repeat 10 years EGD W/O BRSH SPEC VARICIES INJ 02/22/2022 ESOPHAGOGASTRODUODENOSCOPY TRANSORAL DIAGNOSTIC 02/09/2016 EGD INCISE FINGER TENDON SHEATH Right 08/10/2021 Right ring trigger finger release JOINT REPLACEMENT HX LAPS ABD PRTM&OMENTUM DX W/WO SPEC BR/WA SPX Laparoscopy LAPS SURG CHOLECYSTECTOMY W/CHOLANGIOGRAPHY 10/07/2006 LIG/TRNSXJ FLP TUBE ABDL/VAG APPR UNI/BI Tubal ligation PAST SURGICAL HISTORY OF 06/22/2010 right knee arthroscopy- by Dr Dawson ([facility]) PAST SURGICAL HISTORY OF 04/27/2020 low back surgery at [facility];s/p L4 laminectomy, decompression of L4-5 canal stenosis with bilateral L4,L5 root foraminotomies TONSILLECTOMY PRIMARY/SECONDARY <AGE 12 Tonsillectomy VAGINAL HYSTERECTOMY UTERUS 250 GM/< Hysterectomy, vaginal for menorrhagia I reviewed the past medical history, family history, social history and surgical history with changes noted above and updated in EMR. IMMUNIZATIONS Prevnar - xx Pneumovax 23 - 09/09/2010, 03/22/2010 Influenza - 08/07/2022 COVID-19 - 08/20/2022, 04/06/2022, 08/04/2021, 12/15/2020, 11/16/2020 ROS: General: No unintentional weight loss. Appetite fair, everything bothers my stomach. Eyes, Ears, nose, throat: Post nasal drip, rhinorrhea. No purulent nasal discharge, epistaxis. No hoarseness. Vision stable. Cardiac: No angina, edema, orthopnea. Resp: See HPI. GI: Heartburn. No dysphagia. Chronic diarrhea. Musculoskeletal: No pain. Neuro: Sinus headaches. No focal weakness, tremor. Skin: No rash. Otherwise negative. PHYSICAL EXAMINATION: BP 108/70 Pulse 86 Resp 18 Wt 92.5 kg (204 lb) SpO2 94% BMI 32.93 kg/m Gen: No acute distress. Cooperative with examination. HEENT: Normocephalic. Sclera, conjunctiva clear. Oral hygeine and dentition good. No thrush. Resp: No stridor, accessory respiratory muscle use, supra-sternal or intercostal retractions. No wheezes, crackles. CV: Regular rythm. Heart tones normal. Radial pulses normal. Abd: Non distended. MSK: No kyphoscoliosis. Ext: Warm and well perfused. No clubbing, cyanosis, edema. Skin: No rash, ecchymoses. Neuro: Mental status normal. Affect normal. No tremor. DATA: PFT, 09/29/2021 IMPRESSION: Spirometry indicates mild obstruction. There was not a significant bronchodilator response. Electronically Signed On 09-29-2021 17:37:14 EST by Mona Corrigan M.D. Exhaled nitric oxide (Basia), 09/29/2021: 5 (normal < 20). CXR, 11/21/2022 IMPRESSION: Peribronchial cuffing which may be seen with small airways inflammation/bronchitis Mild right infrahilar opacity, atelectasis versus bronchopneumonia in the appropriate clinical setting RESULT: Lines, tubes, and devices: None. Lungs and pleura: Mild peribronchial cuffing. Mild right infrahilar opacity.. No lung mass. No pleural effusion. No pneumothorax. Cardiomediastinal silhouette: Normal cardiomediastinal silhouette. Bones and soft tissues: Degenerative changes are present within the thoracic spine. LDCT, 10/2022 [facility] Lung RADS 2 Follow up LDCT in 1 year ASSESSMENT/PLAN: 1. Stage 2 moderate COPD by GOLD classification (HCC) - ICD9: 496, ICD10: J44.9 (primary diagnosis) Obtain updated PFTs. Smoking cessation is critical. Will switch back to ICS/LABA and monitor blood sugars. Patient instructed to use daily and rinse mouth after each use to help prevent oral thrush. Albuterol HFA inhaler, 2 inhalations 10-15 minutes prior to activities associated with shortness ofbreath, and as needed for rescue relief of shortness of breath or wheezing, up to 4 times daily. - SPIROMETRY BASELINE ONLY - LUNG DIFFUSION CAPACITY (DLCO) 2. Tobacco abuse - ICD9: 305.1, ICD10: Z72.0 Cessation encouraged. Physiologic and physical aspects of tobacco addiction as well as strategies for quitting were discussed. Counseling was given focusing on the harmful effects of this addiction especially given the patient's medical condition(s) which will be worsened because of the chemicals in tobacco. Enrolled in lung cancer screening at [facility]. Next LDCT 10/2023. 3. Seasonal allergies - ICD9: 477.9, ICD10: J30.2 Follows with [facility] Portions of this documentation were copied and pasted from previous office visit notes in order to provide a cohesive continuity of the history. The note has been reviewed and edited and updated as necessary. Leila Rubi PA-C documented in this encounterUniversity [facility]als [facility]04-11-2023 Instructions* Patient Instructions* Willam Estrada MD - 12/18/2022 7:53 PM EDT Cerave itch relief lotion Eucerin eczema lotion Baby soap and/or shampoo (Aveeno, Neutrogena) Some has oatmeal in the formulation to help with itching. Cold compresses can help with itching. Check with ENT if can use Zyrtec and other antihistamines to help with itching before allergy testing or can they move allergy testing. Breo on hold after start Anoro. If need to add inhaled steroid, will add another inhaler instead of Breo. documented in this encounterUniversity [facility]als [facility]04-11-2023 History of Present illness Narrative* Willam Estrada MD - 12/18/2022 6:40 PM EDT This note was created using Apprityriter. Subjective Garland De Santiago is a 62 year old female. No chief complaint on file. SUBJECTIVE: Garland De Santiago is a 62 year old year old lady here today for follow up appointment for review ofmedical conditions sinobronchitis--not getting much better. Heavy chest Still wheezing --feels like upper right chest area No fevers or chills. Finished antibiotic. Having reaction with itching and getting bruising and petechiae from scratching, Working on staying hydrated but still dry. Started last night. Also having diarrhea and nausea so not getting enough fluids. Told by ENT not to take Zyrtec since doing allergy testing soon. Did not tolerate prednisone since made her more agitated and anxious so needed more anxiety med. Also was nauseated (?antibiotic) Since off prednisone, sugars down from 190s to 329 and now down to 153 to 191 since off the steroids. Noted diarrhea and stomach pain after eggs.and dairy. Suspects also lactose intolerance, Does does better with lactaid milk. has some Lactaid. PAST MEDICAL HISTORY Diagnosis Date Allergic rhinitis, cause unspecified 02/10/2007 Anxiety Arthritis Asthma 02/10/2007 Centrilobular emphysema (HCC) Depression Psychiatrist managing (Dr. Bedolla) DM type 2 (diabetes mellitus, type 2) ([facility]) Essential hypertension 05/23/2006 Hemorrhage of gastrointestinal tract, unspecified 12/13/2011 Had bleeding hemorrhoids in 2011; normal colonoscopy Internal hemorrhoids without mention of complication 12/13/2011 Mixed hyperlipidemia 05/23/2006 Obesity (BMI 30.0-34.9) YARY (obstructive sleep apnea) Uses BiPAP occasionally Other nonspecific abnormal finding 05/23/2006 CK Elevation Snoring Current Outpatient Medications Medication Sig ALPRAZolam (XANAX) 0.5 mg tablet Take 1 tablet by mouth at bedtime as needed for up to 60 days. albuterol (PROVENTIL) 2.5 mg /3 mL (0.083 %) nebulizer solution Use 3 mL via nebulizer every 4 hours as needed for wheezing/shortness of breath. fluticasone-vilanterol (BREO ELLIPTA) 200-25 mcg/dose inhaler Inhale 1 Inhalation as instructed once daily. gabapentin (NEURONTIN) 300 mg capsule Take 2 capsules by mouth every morning AND 3 capsules every evening. Do all this for 180 days. glipiZIDE (GLUCOTROL) 5 mg tablet Take 1 tablet by mouth once daily. May take extra half to whole pill daily as needed for blood sugar over 200 metFORMIN ER (GLUCOPHAGE XR) 500 mg 24 hr tablet Take 1 tablet by mouth twice daily before meals. ipratropium (ATROVENT) 0.02 % nebulizer solution Use 2.5 mL via nebulizer four times daily. Unit dose pack of 50 cholecalciferol, vitamin D3, 10 mcg (400 unit) cap Take 1 capsule by mouth once daily. albuterol HFA (VENTOLIN HFA) 90 mcg/actuation inhaler Inhale 2 Puffs as instructed every 4 hours asneeded. omeprazole (PRILOSEC) 20 mg capsule Take 1 capsule by mouth daily before breakfast. 1/2 hr before meal. (Patient not taking: Reported on 12/05/2022) Vitamin E, dl, acetate, (VITAMIN E) 400 unit capsule Take 400 Units by mouth once daily. fluticasone (FLONASE) 50 mcg/actuation nasal spray Use 2 Sprays in each nostril once daily. Rinse mouth after use. cetirizine (ZYRTEC) 10 mg tablet Take 1 tablet by mouth once daily. sertraline (ZOLOFT) 100 mg tablet Take 2 tablets by mouth once daily. busPIRone (BUSPAR) 15 mg tablet Take 0.5 tablets by mouth twice daily. gemfibrozil (LOPID) 600 mg tablet Take 1 tablet by mouth twice daily. atenolol (TENORMIN) 50 mg tablet Take 1 tablet by mouth once daily. furosemide (LASIX) 20 mg tablet Take 1 tablet by mouth once daily. potassium chloride (K-TAB) 10 mEq tablet Take 1 tablet by mouth daily with breakfast. traZODone (DESYREL) 100 mg tablet Take 1 tablet by mouth daily at bedtime. lisinopril (ZESTRIL, PRINIVIL) 20 mg tablet Take 1 tablet by mouth once daily. diphenoxylate-atropine (LOMOTIL) 2.5-0.025 mg per tablet Take 1 tablet by mouth four times daily asneeded. (Patient not taking: Reported on 12/05/2022) lipase/protease/amylase (CREON ORAL) Take by mouth. Dr. Caceres, unsure of dose (Patient not taking:Reported on 12/05/2022) ibuprofen (MOTRIN) 600 mg tablet Take 1 tablet by mouth every 12 hours. diclofenac (VOLTAREN ARTHRITIS PAIN) 1 % topical gel Apply 2-4 g to affected area four times daily as needed (feet pain). Lancets lancets Test blood sugar(s) 2 times daily. Dx: Type 2 DM - Uncontrolled E11.65 Insulin: No blood sugar diagnostic (TRUE METRIX GLUCOSE TEST STRIP) test strip Test blood sugars twice a day DX: E11.65 Insulin: No Use as instructed ketoconazole (NIZORAL) 2 % cream Apply 1 application to affected area once daily. Blood-Glucose Meter monitoring kit Insurance covered or per patient choice. Test blood sugar twice daily plus as needed for symptoms of blood sugars being too high or low. Dx: Type 2 DM - Uncontrolled E11.65 Insulin:No Nebulizer NEBULIZER FOR HOME USE. DX: J45.42 BIPAP Initiate BiPAP @ 20/14 cm of water with heated humidification. Ti Max 1.0, Ti Min 0.3, trigger medium, cycle high. Mask (medium AirFit F10 full face mask or per patient preference) optional chin strap (if indicated) , filters, tubing, humidifier and lifetime supplies. (Patient not taking: Reported on 12/05/2022) No current facility-administered medications for this visit. Review of Systems Objective BP 104/64 Pulse 81 Temp 36.3 C (97.3 F) Resp 18 Wt 91.2 kg (201 lb) SpO2 97% BMI 32.44 kg/m Last 5 Encounter Wt Readings: Date: Wt: 12/18/2022 91.2 kg (201 lb) 11/21/2022 94.5 kg (208 lb 6.4 oz) 10/08/2022 93.4 kg (206 lb) 08/07/2022 92.5 kg (204 lb) 07/02/2022 93.4 kg (206 lb) No waist measurement recorded Estimated body mass index is 32.44 kg/m as calculated from the following: Height as of 02/09/22: 167.6 cm (5' 6). Weight as of this encounter: 91.2 kg (201 lb). Last 5 Encounter BP Readings: Date: BP: 12/18/2022 104/64 11/21/2022 110/78 10/08/2022 119/75[True BP[ 08/07/2022 118/82 07/05/2022 122/78 Physical Exam Constitutional: Appearance: Normal appearance. HENT: Head: Normocephalic. Eyes: Conjunctiva/sclera: Conjunctivae normal. Cardiovascular: Rate and Rhythm: Normal rate and regular rhythm. Heart sounds: Normal heart sounds. Pulmonary: Effort: Pulmonary effort is normal. Breath sounds: Wheezing (Low pitched throughoutl; some faint high pitched wheezes) present. Skin: General: Skin is warm and dry. Comments: Some petechiae from scratching on forearms. Neurological: General: No focal deficit present. Mental Status: She is alert and oriented to person, place, and time. Psychiatric: Mood and Affect: Mood normal. Behavior: Behavior normal. Thought Content: Thought content normal. Judgment: Judgment normal. Assessment and Plan Encounter Diagnosis ICD-10-CM 1. COPD with exacerbation ([facility]) J44.1 CONSULT TO PULM/CRITICAL CARE 2. Itching L29.9 3. Sinobronchitis J32.9 J40 Improved; no need for another antibiotic. ENT for evaluation. Referred to pulmonology as well 4. Recurrent major depressive disorder, in remission ([facility]) F33.40 Stable on Zoloft. Above issues addressed with patient. Patient involved in shared decision making for management of medical issues. History and medications reviewed. Epic updated as needed Refills and/or prescriptions taken care of and meds adjusted as indicated after reviewed history, exam and labs. Health Maintenance reviewed. Updated record and/or ordered tests as recorded. Encouraged on efforts at healthy diet and regular exercise and adequate sleep. Encouraged enough fluids to keep BP up. I spent a total of 40 minutes on the date of the service which included [id number] patient care, completing clinical documentation, performing a medically appropriate examination, counseling and educating the patient/family/caregiver, and ordering medications, tests, or procedures. Willam Estrada MD documented in this encounterUniversity Hospitals [facility]04-11-2023 Miscellaneous Notes* Telephone Encounter - Allegra Berumen APRN.CNP - 12/18/2022 4:08 PM EDT Noted, agree with appointment today. * Telephone Encounter - Ashley Hernandez RN - 12/17/2022 1:16 PM EDT Patient calls and states that she has not been as sick as what she is. Patient states that she has been coughing up a lot of mucous. Patient still has wheezing and cough. Patient is concerned becauseshe is not better. Patient states that since Saturday she has had itching that comes and goes and that she feels her heart pound when she is laying down. Patient took last prednisone and cefdinir on Saturday. Patient worried that is having allergic reaction them. Patient reports that fasting blood sugar today was 191. Patient scheduled appointment with provider for tomorrow evening. Ashley Hernandez RN documented in this encounterUniversity Hospitals [facility] Center04-07-2023 Miscellaneous Notes* Telephone Encounter - Derick Goddard LPN - 12/14/2022 3:42 PM EDT PATIENT NOTIFIED OF SAME. * Telephone Encounter - Allegra Berumen APRN.CNP - 12/14/2022 3:32 PM EDT Can finish the steroid as prescribed, would increase her glipizide to the 2 tablets daily for over the weekend and then once off of the prednisone she should see things beginning to improve. * Telephone Encounter - Derick Goddard LPN - 12/14/2022 2:45 PM EDT Spoke with patient and she states in regards to the bronchitis she is feeling a little better but not completely. Blood sugars remain high and has three more days of 1 tablet of prednisone. Yesterday blood sugars were 329 about 2 hours after breakfast 297 at 12:30. 262 about 2 hours later and she took extra dose of glipizide. 197 at 3pm 200 around bedtime. 266 Today at 13:30 Patient states on an average she has been taking two glipizide each day there had been 1-2 days shehas even taken a 3rd dose and there had been about 2-3 days she has had to take an extra dose of xanax due to feeling jittery from the steroids. Patient questions if she should continue with the steroids and is it ok to take that much glipizide? * Telephone Encounter - Allegra Berumen APRN.CNP - 12/14/2022 9:46 AM EDT Can we get an update on how sugars are doing? She should be almost done if not already done with steroids. * Telephone Encounter - Fabiana Hernandez LPN - 12/12/2022 11:26 AM EDT See telephone encounter from [facility] last pm, pt calling with an update. Pt states she got up this am & ate a piece of toast with butter & took her morning meds. 4 hours later (now) she reports her blood sugar is 329. Pt states last night after speaking to [facility] she took another glipizide as instructed (3 for the day)& her blood sugar went down to 196. Pt states she is on day 5 of antibiotics & prednisone for bronchitis. She states she is not wheezing as bad as she was but still has productive cough, sinus headache & chest tightness. Pulse ox 98%. Please advise. Fabiana Hernandez LPN documented in this encounterUniversity Hospitals [facility] Center04-04-2023 Miscellaneous Notes* Telephone Encounter - Tex Herrera RN - 12/11/2022 9:00 PM EDT Reason for Call: High Blood Sugar Outcome: Dr Estrada advises patient to push fluids, take another glipizide and the evening dose ofMetformin now; recheck blood sugar in 2 hours to make sure it is coming down and call PCP office inthe morning with an update. Reason for Disposition [1] Blood glucose > 300 mg/dL (16.7 mmol/L) AND [2] two or more times in a row Answer Assessment - Initial Assessment Questions 1. BLOOD GLUCOSE: 5 mg glipizide was taken at 6 pm for blood sugar 315; blood sugar went down to 254 and now 321 after supper 2. ONSET: just now 3. USUAL RANGE: usual range 180 in the evening 4. KETONES: no 5. TYPE 1 or 2: type 2 6. INSULIN: no 7. DIABETES PILLS: metformin 500 mg in AM and PM; no missed doses 8. OTHER SYMPTOMS: headache; urinating a lot but not a new symptom; jittery and flushed since 12/09/22; patient is on prednisone; hot and sweaty intermittenly 9. : na Protocols used: Diabetes - High Blood [id number] documented in this encounterUniversity Hospitals [facility]04-03-2023 Miscellaneous Notes* Telephone Encounter - Allegra Berumen APRN.CNP - 12/10/2022 12:03 PM EDT PDMP website checked and validated. All prescriptions have been APPROPRIATELY filled. No suspiciousactivity was identified. 12/10/2022 by Allegra Berumen APRN.CNP * Telephone Encounter - Oxana Soria LPN - 12/10/2022 10:36 AM EDT Patient has been identified by name and date of : Pharmacy phones for refill(s): Requested Prescriptions Pending Prescriptions Disp Refills ALPRAZolam (XANAX) 0.5 mg tablet 30 tablet 3 Sig: Take 1 tablet by mouth at bedtime as needed for up to 120 days. Date of last office visit in primary care: Last 2 Encounter Wt Readings: Date: Wt: 11/21/2022 94.5 kg (208 lb 6.4 oz) 10/08/2022 93.4 kg (206 lb) Previous labs/tests for medication: Not applicable Please advise. Thank you. Oxana Soria LPN documented in this encounterUniversity Hospitals [facility] Center04-03-2023 Miscellaneous Notes* Telephone Encounter - Nat Malik LPN - 12/10/2022 10:33 AM EDT Patient calling she took her last pill last night. She was calling to make sure request got sent toPCP, rx goes to [facility]. Please advise Patient has been identified by name and date of : Patient phones for refill(s): Requested Prescriptions Pending Prescriptions Disp Refills ALPRAZolam (XANAX) 0.5 mg tablet 30 tablet 3 Sig: Take 1 tablet by mouth at bedtime as needed for up to 120 days. Date of last office visit in primary care: 12/05/2022, has appt 04/03/2023 Last 2 Encounter Wt Readings: Date: Wt: 11/21/2022 94.5 kg (208 lb 6.4 oz) 10/08/2022 93.4 kg (206 lb) Previous labs/tests for medication: Not applicable Please advise. Thank you. Nat Malik LPN documented in this encounterUniversity Hospitals Beach[facility] Center03-29-2023 History of Present illness Narrative* Willam Estrada MD - 12/05/2022 4:09 PM EDT This note was created using Apprityriter. Subjective Garland De Santiago is a 62 year old female. No chief complaint on file. SUBJECTIVE: Garland De Santiago is a 62 year old year old lady here today for lady month follow up appointment for review of medical conditions. BP at home and here fine. Brought cuff in. Noted ongoing cough and chest congestion and low grade fevers up to 99.9 to 101. No energy--tired all the time. SOB. Headaches--feels like head will explode. Tylenol helps Bad sore throat around 11/17. Seen in [facility]. Doxy for 10 days--did not get rid of illness. Doxy caused nausea and vomiting. Also has sinusitis symptoms (more right cheek and frontal) with pain and pressure. Pain in back and jaw around to neck and back of neck. Right ear hurting. Gabapentin still helping for feet pain. Sugars 180s to 270s the past little over a month. PAST MEDICAL HISTORY Diagnosis Date Allergic rhinitis, cause unspecified 02/10/2007 Anxiety Arthritis Asthma 02/10/2007 Centrilobular emphysema (HCC) Depression Psychiatrist managing (Dr. Bedolla) DM type 2 (diabetes mellitus, type 2) ([facility]) Essential hypertension 05/23/2006 Hemorrhage of gastrointestinal tract, unspecified 12/13/2011 Had bleeding hemorrhoids in 2011; normal colonoscopy Internal hemorrhoids without mention of complication 12/13/2011 Mixed hyperlipidemia 05/23/2006 Obesity (BMI 30.0-34.9) YARY (obstructive sleep apnea) Uses BiPAP occasionally Other nonspecific abnormal finding 05/23/2006 CK Elevation Snoring Current Outpatient Medications Medication Sig albuterol HFA (VENTOLIN HFA) 90 mcg/actuation inhaler Inhale 2 Puffs as instructed every 4 hours asneeded. glipiZIDE (GLUCOTROL) 5 mg tablet Take 1 tablet by mouth once daily. As directed (Patient taking differently: Take 5 mg by mouth once daily. As directed. When needed with sugars over 200) ALPRAZolam (XANAX) 0.5 mg tablet Take 1 tablet by mouth at bedtime as needed for up to 120 days. Donot start before August 11, 2022. metFORMIN ER (GLUCOPHAGE XR) 500 mg 24 hr tablet Take 1 tablet by mouth twice daily before meals. gabapentin (NEURONTIN) 300 mg capsule Take 2 capsules by mouth every morning AND 3 capsules every evening. Do all this for 180 days. Vitamin E, dl, acetate, (VITAMIN E) 400 unit capsule Take 400 Units by mouth once daily. fluticasone (FLONASE) 50 mcg/actuation nasal spray Use 2 Sprays in each nostril once daily. Rinse mouth after use. cetirizine (ZYRTEC) 10 mg tablet Take 1 tablet by mouth once daily. sertraline (ZOLOFT) 100 mg tablet Take 2 tablets by mouth once daily. busPIRone (BUSPAR) 15 mg tablet Take 0.5 tablets by mouth twice daily. gemfibrozil (LOPID) 600 mg tablet Take 1 tablet by mouth twice daily. atenolol (TENORMIN) 50 mg tablet Take 1 tablet by mouth once daily. furosemide (LASIX) 20 mg tablet Take 1 tablet by mouth once daily. potassium chloride (K-TAB) 10 mEq tablet Take 1 tablet by mouth daily with breakfast. traZODone (DESYREL) 100 mg tablet Take 1 tablet by mouth daily at bedtime. lisinopril (ZESTRIL, PRINIVIL) 20 mg tablet Take 1 tablet by mouth once daily. fluticasone-vilanterol (BREO ELLIPTA) 200-25 mcg/dose inhaler Inhale 1 Inhalation as instructed once daily. ibuprofen (MOTRIN) 600 mg tablet Take 1 tablet by mouth every 12 hours. diclofenac (VOLTAREN ARTHRITIS PAIN) 1 % topical gel Apply 2-4 g to affected area four times daily as needed (feet pain). Lancets lancets Test blood sugar(s) 2 times daily. Dx: Type 2 DM - Uncontrolled E11.65 Insulin: No blood sugar diagnostic (TRUE METRIX GLUCOSE TEST STRIP) test strip Test blood sugars twice a day DX: E11.65 Insulin: No Use as instructed ipratropium (ATROVENT) 0.02 % nebulizer solution Use 2.5 mL via nebulizer four times daily. Unit dose pack of 50 albuterol (PROVENTIL) 2.5 mg /3 mL (0.083 %) nebulizer solution Use 3 mL via nebulizer every 4 hours as needed for wheezing/shortness of breath. ketoconazole (NIZORAL) 2 % cream Apply 1 application to affected area once daily. Blood-Glucose Meter monitoring kit Insurance covered or per patient choice. Test blood sugar twice daily plus as needed for symptoms of blood sugars being too high or low. Dx: Type 2 DM - Uncontrolled E11.65 Insulin:No Nebulizer NEBULIZER FOR HOME USE. DX: J45.42 omeprazole (PRILOSEC) 20 mg capsule Take 1 capsule by mouth daily before breakfast. 1/2 hr before meal. (Patient not taking: Reported on 12/05/2022) diphenoxylate-atropine (LOMOTIL) 2.5-0.025 mg per tablet Take 1 tablet by mouth four times daily asneeded. (Patient not taking: Reported on 12/05/2022) lipase/protease/amylase (CREON ORAL) Take by mouth. Dr. Caceres, unsure of dose (Patient not taking:Reported on 12/05/2022) BIPAP Initiate BiPAP @ 20/14 cm of water with heated humidification. Ti Max 1.0, Ti Min 0.3, trigger medium, cycle high. Mask (medium AirFit F10 full face mask or per patient preference) optional chin strap (if indicated) , filters, tubing, humidifier and lifetime supplies. (Patient not taking: Reported on 12/05/2022) No current facility-administered medications for this visit. Review of Systems Objective There were no vitals taken for this visit. Physical Exam Constitutional: Appearance: Normal appearance. HENT: Head: Normocephalic. Comments: tender over sinuses Eyes: Conjunctiva/sclera: Conjunctivae normal. Cardiovascular: Rate and Rhythm: Normal rate and regular rhythm. Heart sounds: Normal heart sounds. Pulmonary: Effort: Pulmonary effort is normal. Breath sounds: Wheezing (with forced expirations; noted tight cough) present. Skin: General: Skin is warm and dry. Neurological: General: No focal deficit present. Mental Status: She is alert and oriented to person, place, and time. Psychiatric: Attention and Perception: Attention and perception normal. Mood and Affect: Mood and affect normal. Speech: Speech normal. Behavior: Behavior normal. Thought Content: Thought content normal. Cognition and Memory: Cognition and memory normal. Judgment: Judgment normal. Component Latest Ref Rng & Units 07/31/2022 07/31/2022 12:11 PM 12:11 PM Protein, Total 6.3 - 8.0 g/dL 7.7 Albumin 3.9 - 4.9 g/dL 4.6 Calcium 8.5 - 10.2 mg/dL 9.5 Bilirubin, Total 0.2 - 1.3 mg/dL 0.3 Alkaline Phosphatase 34 - 123 U/L 83 AST 13 - 35 U/L 32 ALT 7 - 38 U/L 20 Glucose 74 - 99 mg/dL 197 (H) BUN 7 - 21 mg/dL 19 Creatinine 0.58 - 0.96 mg/dL 0.59 Sodium 136 - 144 mmol/L 138 Potassium 3.7 - 5.1 mmol/L 4.0 Chloride 97 - 105 mmol/L 98 CO2 22 - 30 mmol/L 25 Anion Gap 9 - 18 mmol/L 15 eGFR >=60 mL/min/1.73m 102 WBC 3.70 - 11.00 k/uL 7.77 RBC 3.90 - 5.20 m/uL 5.32 (H) Hemoglobin 11.5 - 15.5 g/dL 15.4 Hematocrit 36.0 - 46.0 % 45.8 MCV 80.0 - 100.0 fL 86.1 MCH 26.0 - 34.0 pg 28.9 MCHC 30.5 - 36.0 g/dL 33.6 RDW-CV 11.5 - 15.0 % 12.6 Platelet Count 150 - 400 k/uL 275 MPV 9.0 - 12.7 fL 9.9 Absolute nRBC <0.01 k/uL <0.01 Cholesterol, Total <200 mg/dL 173 Triglyceride <150 mg/dL 580 (H) HDL Cholesterol >39 mg/dL 23 (L) Non HDL Cholesterol <130 mg/dL 150 (H) Fasting Time hrs 12 VLDL Cholesterol 83 (H) TC:HDL Ratio <5.10 7.52 (H) LDL Cholesterol LDL:HDL Ratio Hemoglobin A1C 4.3 - 5.6 % 8.2 (H) Estimated Average Glucose mg/dL 189 LDL Cholesterol, Direct <100 mg/dL 67 Hemoglobin A1C (%) Date Value 07/31/2022 8.2 03/28/2022 7.5 08/14/2021 6.4 03/30/2021 6.4 10/07/2020 6.0 05/18/2020 6.4 07/02/2019 7.8 Assessment and Plan Encounter Diagnosis ICD-10-CM 1. Sinobronchitis J32.9 cefdinir (OMNICEF) 300 mg capsule J40 DISCONTINUED: cefdinir (OMNICEF) 300 mg capsule DISCONTINUED: cefdinir (OMNICEF) 300 mg capsule 2. Type 2 diabetes mellitus with diabetic neuropathy, without long-term current use of insulin ([facility]) E11.40 HGB A1C COMP METABOLIC PANEL ALBUMIN/CREAT RATIO RND UR 3. Essential hypertension I10 COMP METABOLIC PANEL CBC 4. Encounter for long-term current use of medication Z79.899 COMP METABOLIC PANEL CBC 5. Mixed hyperlipidemia E78.2 LIPID PANEL BASIC 6. Chronic obstructive pulmonary disease, unspecified COPD type ([facility]) J44.9 [id number] BL 7. Neuropathy G62.9 gabapentin (NEURONTIN) 300 mg capsule DISCONTINUED: gabapentin (NEURONTIN) 300 mg capsule 8. Stage 2 moderate COPD by GOLD classification ([facility]) J44.9 fluticasone- vilanterol (BREO ELLIPTA) 200-25 mcg/dose inhaler DISCONTINUED: fluticasone-vilanterol (BREO ELLIPTA) 200-25 mcg/dose inhaler 9. Moderate persistent asthma without complication J45.40 albuterol (PROVENTIL) 2.5 mg /3 mL (0.083%) nebulizer solution ipratropium (ATROVENT) 0.02 % nebulizer solution Above issues addressed with patient. Patient involved in shared decision making for management of medical issues. History and medications reviewed. Epic updated as needed Refills and/or prescriptions taken care of and meds adjusted as indicated after reviewed history, exam and labs. Health Maintenance reviewed. Updated record and/or ordered tests as recorded. Encouraged on efforts at healthy diet and regular exercise and adequate sleep. Further evaluation and treatment as indicated. I spent a total of 40 minutes on the date of the service which included [id number] patient care, completing clinical documentation, obtaining and/or reviewing separately obtained history, performing a medically appropriate examination, counseling and educating the patient/family/caregiver, and ordering medications, tests, or procedures. Willam Estrada MD documented in this encounterUniversity Hospitals [facility] Center03-28-2023 History of Present illness Narrative* Sherie Kay RN - 12/04/2022 6:03 PM EDT INSIGHT CDM ESCALATION Provider Action/FYI: FYI: Pt w/URI -has gone on for about a month. She tested neg for Covid last night but had fever of 101.0. Doxy didn't help. Pt sounds congested and is sniffling as she speaks. Concerned about neighbor whohas a dog that has never been bathed if that could contribute to her illness. She can smell the dogin the communal hallway, even when it is not there. Has appt Wed with Dr Ulloa. Message received via: InSight - Yes contact made with patient ACTION TAKEN: Based on concrete finisher apprentice, the following disposition is advised: SYMPTOMS PRESENT NOT SEVERE: No action required - Continue outreach / Phone Call - LISA Education Ordered -: No documented in this encounterUniversity Hospitals Beach[facility] Center03-20-2023 Miscellaneous Notes* Addendum Note - Willam Estrada MD - 11/26/2022 7:23 PM EDTAddended by: WILLAM ESTRADA on: 11/26/2022 07:23 PM Modules accepted: Orders documented in this encounterUniversity Hospitals Beach[facility] Center03-20-2023 History of Present illness Narrative* Willam Estrada MD - 11/26/2022 7:21 PM EDT Sent RX that was given from [facility] in 2017 after Robitussin AC did not help with cough. If not covered, can try the Robitussin AC again. The following approved medication requests have been transmitted electronically. Requested Prescriptions Signed Prescriptions Disp Refills Suqmtwgfdypzntv-Kspibhjqc-OX (BROMFED DM) 2-30-10 mg/5 mL syrup 240 mL 0 Sig: Take 10 mL by mouth four times daily as needed for up to 7 days. Willam Estrada MD * Sherie Kay RN - 11/26/2022 3:23 PM EDT INSIGHT CDM ESCALATION Provider Action/FYI: Pt with URI, was seen in [facility] and given Doxy. Feels a little better, but bad cough continues tanisha at night, despite using Albuterol, etc. Would like some cough med called in please. Message received via: InSight - Yes contact made with patient ACTION TAKEN: Based on concrete finisher apprentice, the following disposition is advised: SYMPTOMS PRESENT NOT SEVERE: No action required - Continue outreach / Phone Call - LISA Education Ordered -: No documented in this encounterUniversity Hospitals Beachwood [facility] Center03-15-2023 Miscellaneous Notes* Telephone Encounter - Willam Estrada MD - 11/21/2022 8:32 PM EDT Noted * Telephone Encounter - Nat Malik LPN - 11/21/2022 2:04 PM EDT Patient calling started Saturday with sore throat, now coughing, post nasal drainage, her throat is painful at times, head congestion. PCP has no appt available, advised express care for evaluation. Patient did home COVID test and was negative. Patient plans to go to express care. documented in this encounterUniversity [facility] History of Present illness Narrative* Deena Ivey APRN.HEIDY - 11/21/2022 4:36 PM EDT This note was created using NoteWriter. Subjective Garland De Santiago is a 62 year old female. 62 year old female with PMH DM, COPD HTN, YARY, obestity presents for illness. Acute onset 3 days ago +headache +sore throat +cough +SOB with coughing Harsh cough +productive sputum +wheezing +low grade fever +fatigue + general weakness. +tobacco smoker, states that she has had to cut back. Denies hemoptysis. Denies CP. States trying inhaler did not work. The history is provided by the patient. No high school foreign language teacher was used. Cough This is a new problem. The current episode started more than 2 days ago. The problem occurs constantly. The problem has not changed since onset.The cough is Productive of sputum. The maximum temperature recorded prior to her arrival was 100 to 100.9 F. Associated symptoms include rhinorrhea, sore throat, shortness of breath and wheezing. Pertinent negatives include no chest pain, no chills, no sweats, no weight loss, no ear congestion, no ear pain, no headaches, no myalgias and no eye redness. She has tried nothing for the symptoms. The treatment provided no relief. She is a smoker. Her past medical history is significant for COPD. Her past medical history does not include bronchitis, pneumonia, bronchiectasis, emphysema or asthma. PAST MEDICAL HISTORY Diagnosis Date Allergic rhinitis, cause unspecified 02/10/2007 Anxiety Arthritis Asthma 02/10/2007 Centrilobular emphysema (HCC) Depression Psychiatrist managing (Dr. Bedolla) DM type 2 (diabetes mellitus, type 2) ([facility]) Essential hypertension 05/23/2006 Hemorrhage of gastrointestinal tract, unspecified 12/13/2011 Had bleeding hemorrhoids in 2011; normal colonoscopy Internal hemorrhoids without mention of complication 12/13/2011 Mixed hyperlipidemia 05/23/2006 Obesity (BMI 30.0-34.9) YARY (obstructive sleep apnea) Uses BiPAP occasionally Other nonspecific abnormal finding 05/23/2006 CK Elevation Snoring PAST SURGICAL HISTORY Procedure Laterality Date ADENOIDECTOMY PRIMARY <AGE 12 Adenoidectomy ANTERIOR COLPORRAPHY RPR CYSTOCELE W/CYSTO Cystocele repair APPENDECTOMY APPENDECTOMY HX ARTHRP KNE CONDYLE&PLATU MEDIAL&LAT COMPARTMENTS 07/10/2015 right BACK SURGERY HX COLONOSCOPY 02/22/2022 COLONOSCOPY FLX DX W/COLLJ SPEC WHEN PFRMD 12/13/2011 Colonoscopy repeat 10 years EGD W/O [facility] SPEC VARICIES INJ 02/22/2022 ESOPHAGOGASTRODUODENOSCOPY TRANSORAL DIAGNOSTIC 02/09/2016 EGD INCISE FINGER TENDON SHEATH Right 08/10/2021 Right ring trigger finger release JOINT REPLACEMENT HX LAPS ABD PRTM&OMENTUM DX W/WO SPEC BR/WA SPX Laparoscopy LAPS SURG CHOLECYSTECTOMY W/CHOLANGIOGRAPHY 10/07/2006 LIG/TRNSXJ FLP TUBE ABDL/VAG APPR UNI/BI Tubal ligation PAST SURGICAL HISTORY OF 06/22/2010 right knee arthroscopy- by Dr Dawson ([facility]) PAST SURGICAL HISTORY OF 04/27/2020 low back surgery at [facility];s/p L4 laminectomy, decompression of L4-5 canal stenosis with bilateral L4,L5 root foraminotomies TONSILLECTOMY PRIMARY/SECONDARY <AGE 12 Tonsillectomy VAGINAL HYSTERECTOMY UTERUS 250 GM/< Hysterectomy, vaginal for menorrhagia ALLERGIES Dilaudid [Hydromorphone (Bulk)], Dust Mites, Paxil [Paroxetine], Penicillins, Prednisone,Prozac [Fluoxetine Hcl], Pseudoephedrine, and Vicodin [Hydrocodone-Acetaminophen] MEDICATIONS albuterol HFA (VENTOLIN HFA) 90 mcg/actuation inhaler Inhale 2 Puffs as instructed every 4 hours asneeded. glipiZIDE (GLUCOTROL) 5 mg tablet Take 1 tablet by mouth once daily. As directed (Patient taking differently: Take 5 mg by mouth once daily. As directed. When needed with sugars over 200) ALPRAZolam (XANAX) 0.5 mg tablet Take 1 tablet by mouth at bedtime as needed for up to 120 days. Donot start before August 11, 2022. metFORMIN ER (GLUCOPHAGE XR) 500 mg 24 hr tablet Take 1 tablet by mouth twice daily before meals. omeprazole (PRILOSEC) 20 mg capsule Take 1 capsule by mouth daily before breakfast. 1/2 hr before meal. gabapentin (NEURONTIN) 300 mg capsule Take 2 capsules by mouth every morning AND 3 capsules every evening. Do all this for 180 days. Vitamin E, dl, acetate, (VITAMIN E) 400 unit capsule Take 400 Units by mouth once daily. fluticasone (FLONASE) 50 mcg/actuation nasal spray Use 2 Sprays in each nostril once daily. Rinse mouth after use. cetirizine (ZYRTEC) 10 mg tablet Take 1 tablet by mouth once daily. sertraline (ZOLOFT) 100 mg tablet Take 2 tablets by mouth once daily. busPIRone (BUSPAR) 15 mg tablet Take 0.5 tablets by mouth twice daily. gemfibrozil (LOPID) 600 mg tablet Take 1 tablet by mouth twice daily. atenolol (TENORMIN) 50 mg tablet Take 1 tablet by mouth once daily. furosemide (LASIX) 20 mg tablet Take 1 tablet by mouth once daily. potassium chloride (K-TAB) 10 mEq tablet Take 1 tablet by mouth daily with breakfast. traZODone (DESYREL) 100 mg tablet Take 1 tablet by mouth daily at bedtime. lisinopril (ZESTRIL, PRINIVIL) 20 mg tablet Take 1 tablet by mouth once daily. fluticasone-vilanterol (BREO ELLIPTA) 200-25 mcg/dose inhaler Inhale 1 Inhalation as instructed once daily. ibuprofen (MOTRIN) 600 mg tablet Take 1 tablet by mouth every 12 hours. diclofenac (VOLTAREN ARTHRITIS PAIN) 1 % topical gel Apply 2-4 g to affected area four times daily as needed (feet pain). Lancets lancets Test blood sugar(s) 2 times daily. Dx: Type 2 DM - Uncontrolled E11.65 Insulin: No blood sugar diagnostic (TRUE METRIX GLUCOSE TEST STRIP) test strip Test blood sugars twice a day DX: E11.65 Insulin: No Use as instructed ipratropium (ATROVENT) 0.02 % nebulizer solution Use 2.5 mL via nebulizer four times daily. Unit dose pack of 50 albuterol (PROVENTIL) 2.5 mg /3 mL (0.083 %) nebulizer solution Use 3 mL via nebulizer every 4 hours as needed for wheezing/shortness of breath. ketoconazole (NIZORAL) 2 % cream Apply 1 application to affected area once daily. Blood-Glucose Meter monitoring kit Insurance covered or per patient choice. Test blood sugar twice daily plus as needed for symptoms of blood sugars being too high or low. Dx: Type 2 DM - Uncontrolled .65 Insulin:No Nebulizer NEBULIZER FOR HOME USE. DX: J45.42 BIPAP Initiate BiPAP @ 20/14 cm of water with heated humidification. Ti Max 1.0, Ti Min 0.3, trigger medium, cycle high. Mask (medium AirFit F10 full face mask or per patient preference) optional chin strap (if indicated) , filters, tubing, humidifier and lifetime supplies. doxycycline (VIBRA-TABS) 100 mg tablet Take 1 tablet by mouth twice daily for 10 days. diphenoxylate-atropine (LOMOTIL) 2.5-0.025 mg per tablet Take 1 tablet by mouth four times daily asneeded. lipase/protease/amylase (CREON ORAL) Take by mouth. Friend, unsure of dose FAMILY HISTORY Problem Relation Age of Onset Hypertension Mother history of glaucoma Cervical Cancer Mother Asthma Mother Heart Father [place] x 2 Cancer Father Lung, metastatic to bone, age 77 other (aortic aneurysm) Father 50 Colon Polyps Sister Thyroid Sister Hypothyroidism Thyroid Sister Cancer Sister Lung, LLL. Resected. No Known Problems Daughter No Known Problems Son Social History Tobacco Use Smoking status: Every Day Packs/day: 1.00 Years: 36.00 Pack years: 36.00 Types: Cigarettes Smokeless tobacco: Never Tobacco comments: Working on smoking cessation. Trying every day to quit but not happening yet. Vaping Use Vaping Use: Never used Substance Use Topics Alcohol use: No Drug use: No Review of Systems Constitutional: Positive for fatigue and fever. Negative for chills and weight loss. HENT: Positive for congestion, postnasal drip, rhinorrhea and sore throat. Negative for ear pain. Eyes: Negative for discharge, redness and itching. Respiratory: Positive for cough, shortness of breath and wheezing. Negative for apnea, choking and chest tightness. Cardiovascular: Negative for chest pain, palpitations and leg swelling. Gastrointestinal: Negative for abdominal pain, diarrhea, nausea and vomiting. Musculoskeletal: Negative for back pain and myalgias. Skin: Negative for color change, pallor, rash and wound. Allergic/Immunologic: Positive for environmental allergies and immunocompromised state. Negative for food allergies. Neurological: Negative for dizziness, facial asymmetry, light-headedness, numbness and headaches. Hematological: Negative for adenopathy. Does not bruise/bleed easily. Psychiatric/Behavioral: Negative for agitation and behavioral problems. Objective BP 110/78 Pulse 89 Temp 36.9 C (98.4 F) (Tympanic) Resp 18 Wt 94.5 kg (208 lb 6.4 oz) SpO2 98% BMI 33.64 kg/m Physical Exam Vitals and nursing note reviewed. Constitutional: General: She is not in acute distress. Appearance: Normal appearance. She is normal weight. She is not ill-appearing, toxic-appearing or diaphoretic. HENT: Head: Normocephalic and atraumatic. Right Ear: Ear canal and external ear normal. Left Ear: Ear canal and external ear normal. Ears: Comments: Bilateral moderate serous fluid noted. Nose: Nose normal. No congestion or rhinorrhea. Mouth/Throat: Mouth: Mucous membranes are moist. Pharynx: Posterior oropharyngeal erythema present. No oropharyngeal exudate. Eyes: General: Right eye: No discharge. Left eye: No discharge. Extraocular Movements: Extraocular movements intact. Conjunctiva/sclera: Conjunctivae normal. Pupils: Pupils are equal, round, and reactive to light. Cardiovascular: Rate and Rhythm: Normal rate and regular rhythm. Pulses: Normal pulses. Heart sounds: Normal heart sounds. No murmur heard. No friction rub. Pulmonary: Effort: Pulmonary effort is normal. No respiratory distress. Breath sounds: Normal breath sounds. No stridor. No wheezing, rhonchi or rales. Comments: Harsh cough noted with deep inspiration. Chest: Chest wall: No tenderness. Abdominal: General: Abdomen is flat. There is no distension. Palpations: Abdomen is soft. There is no mass. Tenderness: There is no abdominal tenderness. There is no right CVA tenderness, left CVA tenderness, guarding or rebound. Hernia: No hernia is present. Musculoskeletal: General: No swelling, tenderness, deformity or signs of injury. Normal range of motion. Cervical back: Normal range of motion and neck supple. No rigidity. Right lower leg: No edema. Left lower leg: No edema. Lymphadenopathy: Cervical: No cervical adenopathy. Skin: General: Skin is warm and dry. Capillary Refill: Capillary refill takes less than 2 seconds. Coloration: Skin is not jaundiced or pale. Findings: No bruising, erythema, lesion or rash. Neurological: General: No focal deficit present. Mental Status: She is alert and oriented to person, place, and time. Cranial Nerves: No cranial nerve deficit. Sensory: No sensory deficit. Motor: No weakness. Coordination: Coordination normal. Gait: Gait normal. Psychiatric: Mood and Affect: Mood normal. Behavior: Behavior normal. Thought Content: Thought content normal. Judgment: Judgment normal. Assessment and Plan ASSESSMENT/PLAN: 1. Acute cough - ICD9: 786.2, ICD10: R05.1 (primary diagnosis) X 3 days History of COPD +tobacco usage. - COVID WITH FLUA+B, ROUTINE - XR CHEST 2V FRONTAL/LAT-Peribronchial cuffing which may be seen with small airways inflammation/bronchitis Mild right infrahilar opacity, atelectasis versus bronchopneumonia in the appropriate clinical setting COVID pending 2. COPD with exacerbation (HCC) - ICD9: 491.21, ICD10: J44.1 Chest xray reveals Peribronchial cuffing which may be seen with small airways inflammation/bronchitis Mild right infrahilar opacity, atelectasis versus bronchopneumonia in the appropriate clinical setting RX Doxycyline OTC medicines Follow up with Dr. Jo in 5 to 7 days. Deena Ivey APRN.HEIDY documented in this encounterUniversity [facility]als [facility]02-01-2023 History of Present illness Narrative* Demond Love RT(R) - 10/10/2022 3:30 PM EST Radiology Service Progress Note PATIENT NAME: Garland De Santiago DATE OF SERVICE: October 10, 2022 TIME: 3:38 PM PATIENT IDENTITY VERIFICATION COMPLETED USING TWO (2) IDENTIFIERS: Name and Date of confirmedby patient verbally. FALL SCREENING: Has the patient had 2 falls in the last year or 1 fall with injury or currently using an Ambulatory Assistive Device (Walker, Cane, Wheelchair, Crutches, etc.)? No PATIENT GENDER DATA: Female. status: : No status: NO. PATIENT RELEVANT IMPLANT DATA REVIEWED: Not Applicable RADIOLOGY DEPARTMENT: Bone Density PERIPHERAL IV DATA: Not applicable SIGNED BY: RT Aaron(R) October 10, 2022 3:38 PM documented in this encounterUniversity Hospitals [facility]01-30-2023 Instructions* Patient Instructions* Willam Estrada MD - 10/08/2022 12:16 PM EST BONE MINERAL DENSITY PATIENT INSTRUCTIONS Bone mineral density testing measures the amount of calcium in certain parts of your bones. This information determines how strong your bones are. The test is used to detect osteoporosis, a disease in which the bone's mineral content and density are low, increasing a person's risk of fractures. Thelumbar spine (lower back) and the hip are the skeletal sites usually examined. For the test, remember that: 1. You cannot take this test if you are . 2. Eat a normal diet on the day of the test. 3. Take your medications as you normally would. 4. DO NOT take calcium supplements (such as Tums) for 24 hours before the test. 5. On the day of the test, leave valuables (jewelry or credit cards) at home. 6. The test should be performed prior to oral, rectal or IV contrast studies, or at least 7 days after any of these studies. For the test, you may be asked to wear a hospital gown. You will lie on your back, on a padded table, in a comfortable position. Generally, you can resume your usual activities immediately. documented in this encounterUniversity Hospitals [facility]01-30-2023 History of Present illness Narrative* Willam Estrada MD - 10/08/2022 10:40 AM EST Images from the original note were not included. This note was created using [employer]. Subjective Garland De Santiago is a 62 year old female. Patient presents with: Results: Patient is here for MRI results; new upper back pain; BP elevated; right toes turning blue- maybe circulation issue SUBJECTIVE: Garland De Santiago is a 62 year old year old lady here today for follow up appointment for review ofmedical conditions:Results of MRI; BP running higher BP at home has been running higher at home 140 to 160s over 83 to 115 the past 2 weeks. BP cuff wasvalidated last year. Prior 2 week. BP was running better. Headaches are chronic and no worse than usual. Noted increased pain just trying to sweep. Upper back pain noted recently. No pain shooting down arms. Some pain in back of neck and shoulders. Working on weight loss. Noted that sometimes toes hurt. Can be worse when sitting on the toilet. Also worse when sitting in a chair. Saturday night got worse and pain was severe and toes had turned dark; toes felt cold. Got up and moved around and get better. Chair does push on back of thigh. Sometimes pain increased with walking. Smoking cessation hard. Connections with activities and nicotine. Wondered about Vitamin D and D. Sister told her to take. Discussed okay to take up to 800 to 1000 units per day since do not know her baseline. PAST MEDICAL HISTORY Diagnosis Date Allergic rhinitis, cause unspecified 02/10/2007 Anxiety Arthritis Asthma 02/10/2007 Centrilobular emphysema (HCC) Depression Psychiatrist managing (Dr. Bedolla) DM type 2 (diabetes mellitus, type 2) ([facility]) Essential hypertension 05/23/2006 Hemorrhage of gastrointestinal tract, unspecified 12/13/2011 Had bleeding hemorrhoids in 2011; normal colonoscopy Internal hemorrhoids without mention of complication 12/13/2011 Mixed hyperlipidemia 05/23/2006 Obesity (BMI 30.0-34.9) YARY (obstructive sleep apnea) Uses BiPAP occasionally Other nonspecific abnormal finding 05/23/2006 CK Elevation Snoring Current Outpatient Medications Medication Sig nystatin (MYCOSTATIN) 100,000 unit/mL suspension Take 5 mL by mouth four times daily. 1tsp swish inmouth for several minutes, then swallow (or expectorate) 4 times daily until gone. albuterol HFA (VENTOLIN HFA) 90 mcg/actuation inhaler Inhale 2 Puffs as instructed every 4 hours asneeded. glipiZIDE (GLUCOTROL) 5 mg tablet Take 1 tablet by mouth once daily. As directed ALPRAZolam (XANAX) 0.5 mg tablet Take 1 tablet by mouth at bedtime as needed for up to 120 days. Donot start before August 11, 2022. metFORMIN ER (GLUCOPHAGE XR) 500 mg 24 hr tablet Take 1 tablet by mouth twice daily before meals. omeprazole (PRILOSEC) 20 mg capsule Take 1 capsule by mouth daily before breakfast. 1/2 hr before meal. gabapentin (NEURONTIN) 300 mg capsule Take 2 capsules by mouth every morning AND 3 capsules every evening. Do all this for 180 days. Vitamin E, dl, acetate, (VITAMIN E) 400 unit capsule Take 400 Units by mouth once daily. fluticasone (FLONASE) 50 mcg/actuation nasal spray Use 2 Sprays in each nostril once daily. Rinse mouth after use. cetirizine (ZYRTEC) 10 mg tablet Take 1 tablet by mouth once daily. sertraline (ZOLOFT) 100 mg tablet Take 2 tablets by mouth once daily. busPIRone (BUSPAR) 15 mg tablet Take 0.5 tablets by mouth twice daily. gemfibrozil (LOPID) 600 mg tablet Take 1 tablet by mouth twice daily. atenolol (TENORMIN) 50 mg tablet Take 1 tablet by mouth once daily. furosemide (LASIX) 20 mg tablet Take 1 tablet by mouth once daily. potassium chloride (K-TAB) 10 mEq tablet Take 1 tablet by mouth daily with breakfast. traZODone (DESYREL) 100 mg tablet Take 1 tablet by mouth daily at bedtime. lisinopril (ZESTRIL, PRINIVIL) 20 mg tablet Take 1 tablet by mouth once daily. peg 3350-Electrolytes (GOLYTELY) 236-22.74-6.74 -5.86 gram suspension Refer to printed prep instructions from your provider. (Patient not taking: Reported on 08/07/2022) fluticasone-vilanterol (BREO ELLIPTA) 200-25 mcg/dose inhaler Inhale 1 Inhalation as instructed once daily. aspirin, enteric coated (ASPIRIN, ENTERIC COATED) 81 mg EC tablet Take 81 mg by mouth once daily. (Patient not taking: Reported on 08/07/2022) diphenoxylate-atropine (LOMOTIL) 2.5-0.025 mg per tablet Take 1 tablet by mouth four times daily asneeded. (Patient not taking: Reported on 08/07/2022) lipase/protease/amylase (CREON ORAL) Take by mouth. Dr. Caceres, unsure of dose (Patient not taking:No sig reported) ibuprofen (MOTRIN) 600 mg tablet Take 1 tablet by mouth every 12 hours. diclofenac (VOLTAREN ARTHRITIS PAIN) 1 % topical gel Apply 2-4 g to affected area four times daily as needed (feet pain). (Patient not taking: No sig reported) Lancets lancets Test blood sugar(s) 2 times daily. Dx: Type 2 DM - Uncontrolled E11.65 Insulin: No blood sugar diagnostic (TRUE METRIX GLUCOSE TEST STRIP) test strip Test blood sugars twice a day DX: E11.65 Insulin: No Use as instructed ipratropium (ATROVENT) 0.02 % nebulizer solution Use 2.5 mL via nebulizer four times daily. Unit dose pack of 50 albuterol (PROVENTIL) 2.5 mg /3 mL (0.083 %) nebulizer solution Use 3 mL via nebulizer every 4 hours as needed for wheezing/shortness of breath. ketoconazole (NIZORAL) 2 % cream Apply 1 application to affected area once daily. Blood-Glucose Meter monitoring kit Insurance covered or per patient choice. Test blood sugar twice daily plus as needed for symptoms of blood sugars being too high or low. Dx: Type 2 DM - Uncontrolled E11.65 Insulin:No Nebulizer NEBULIZER FOR HOME USE. DX: J45.42 BIPAP Initiate BiPAP @ 20/14 cm of water with heated humidification. Ti Max 1.0, Ti Min 0.3, trigger medium, cycle high. Mask (medium AirFit F10 full face mask or per patient preference) optional chin strap (if indicated) , filters, tubing, humidifier and lifetime supplies. (Patient not taking: Reported on 08/07/2022) No current facility-administered medications for this visit. Review of Systems Objective BP 119/75 (BP Site: Left Arm, BP Position: Sitting, BP Cuff Size: Regular Adult) Pulse 78 Resp 18 Wt 93.4 kg (206 lb) SpO2 96% BMI 33.25 kg/m Last 5 Encounter BP Readings: Date: BP: 08/07/2022 118/82 07/05/2022 122/78 07/02/2022 138/90 06/27/2022 142/98 06/22/2022 142/98 Physical Exam Decreased pulses in dorsalis pedis Toes colder on right side Started to have dependent rubor appearance on right toes-starting with 2nd toe. Impression IMPRESSION: Degenerative changes of the lumbar spine as discussed level by level in the body of the report. Interval improvement in L4-5 now mild spinal canal stenosis. No severe spinal canal stenosis. Anatomic Lumbar Variant: None. L4-5 is considered the level of the iliac crest and assume there are 5 lumbar-type vertebrae. 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: PSCB Transcribe Date/Time: Sep 27 2022 5:51P Dictated by : RICHARD KAPOOR MD This examination was interpreted and the report reviewed and electronically signed by: RICHARD KAPOOR MD on Sep 27 2022 6:01PM EST Results-Findings * * *Final Report* * * DATE OF EXAM: Sep 27 2022 3:20PM [id number] [id number] - MRI LUMBAR SPINE WO IVCON / PROCEDURE REASON: multiple diagnoses * * * * Physician Interpretation * * * * EXAMINATION: MRI LUMBAR SPINE WO IVCON CLINICAL HISTORY: Acute bilateral low back pain with bilateral sciatica Acute bilateral low back pain with bilateral sciatica Radiculopathy of lumbar region Spinal stenosis of lumbar region with neurogenic claudication TECHNIQUE: Routine lumbosacral spine MR protocol without gadolinium. MQ: [id number] COMPARISON: 04/26/2020 outside imaging facility MRI lumbar spine. RESULT: Counting reference: Lumbosacral junction. For the purposes of this report, L4-5 is considered the level of the iliac crest and assume there are 5 lumbar-type vertebrae. Anatomic variant: None. Localizer images: No additional findings. Alignment: Mild retrolisthesis of L1 on L2 and L2 on L3. Alignment is otherwise preserved. Bone marrow signal/fracture: No evidence of pathologic marrow infiltration. No evidence of prior fracture. Conus: The conus is within normal limits of signal intensity and morphology. Paraspinal soft tissues: Paraspinal soft tissues are within normal limits. Lower thoracic spine: Visualized lower thoracic canal and foramina are patent. L1-L2: Disc bulge with mild retrolisthesis resulting mild spinal canal and mild bilateral foraminal stenosis. No significant change. L2-L3: Disc bulge with facet ligamentous hypertrophy resulting mild spinal canal and mild bilateral foraminal stenosis, right greater than left. Effacement of the thecal sac has improved with decrease in epidural lipomatosis. L3-L4: Disc bulge with facet ligamentous hypertrophy resulting mild spinal canal and mild bilateral foraminal stenosis, left greater than right. No significant change. L4-L5: Disc bulge and facet/ligamentous hypertrophy resulting mild spinal canal stenosis as well as moderate left and mild right foraminal stenosis. Canal stenosis and improved likely with decompression. L5-S1: Facet hypertrophy with mild left foraminal stenosis. Right neural foramen and spinal canal are patent. Sacrum and iliac wings: The visualized sacrum and iliac wings are within normal limits. Assessment and Plan ASSESSMENT/PLAN: 1. Essential hypertension - ICD9: 401.9, ICD10: I10 (primary diagnosis) - BP good in office today, but has been higher at home - Continue current medication(s) - Recommended regular aerobic exercise. - Recommend home blood pressure monitoring, to bring results in on next visit - Can bring home cuff in to make sure BP cuff still validated after tries taking to pharmacy as kevin planned. - Goal of BP <130/80 - [facility] 2. Upper back pain - ICD9: 724.5, ICD10: M54.9 Discussed may be associated with lower back pain, but not able to tell if from also having DDD and DJD in upper spine, or if pain from posture for alleviating lower back pain issues. Continue present management for lower back pain. See below 3. Diminished pulses in lower extremity - ICD9: 785.9, ICD10: R09.89 Given smoking history, and - [facility] 4. Pain in both lower extremities - ICD9: 729.5, ICD10: M79.604, M79.605 Further evaluation and treatment as indicated. Discussed could be neuropathic but need to rue out vascular causes. - [facility] 5. Foot pain, bilateral - ICD9: 729.5, ICD10: M79.671, M79.672 As noted above - [facility] 6. Cigarette smoker - ICD9: 305.1, ICD10: F17.210 - Cessation encouraged. - Physiologic and physical aspects of tobacco addiction as well as strategies for quitting were discussed. - Counseling was given focusing on the harmful effects of this addiction especially given the patient's medical condition(s) which will be worsened because of the chemicals in tobacco. - [facility] 7. Type 2 diabetes mellitus with diabetic neuropathy, without long-term current use of insulin (HCC) - ICD9: 250.60, 357.2, ICD10: E11.40 poorly controlled - Continue current medications - Needs to keep working on diet and exercise with lifestyle changes for effective weight loss as well as control of DM, and control of BP and lipids. - [facility] 8. Asymptomatic postmenopausal status - ICD9: V49.81, ICD10: Z78.0 Further evaluation and treatment as indicated. - DXA-AXIAL SKELETON 9. Spinal stenosis of lumbar region, unspecified whether neurogenic claudication present - ICD9: 724.02, ICD10: M48.061 Stable to improved; can refer to Chronic Pain recovery, PT (for dry needling if indicated), [facility] as needed. 10. S/P lumbar laminectomy - ICD9: V45.89, ICD10: Z98.890 Effective based on MRO 11. Class 1 obesity due to excess calories with serious comorbidity and body mass index (BMI) of 33.0 to 33.9 in adult - ICD9: 278.00, V85.33, ICD10: E66.09, Z68.33 Stable to increased. Showed synopsis. Did make changes to get her weight down compared to when max weight was 227pounds. - Behavioral intervention Willam Estrada MD documented in this encounterUniversity Hospitals Beachwood [facility] Center01-23-2023 Miscellaneous Notes* Telephone Encounter - Cresencio Sharp Ma - 10/01/2022 9:40 AM EST Unable to reach after several attempts. Patient active on isocket, message sent * Telephone Encounter - Heather Giang - 09/25/2022 12:27 PM EST Called pt. LVM to schedule Urology consult * Telephone Encounter - Renu Barahona - 09/24/2022 8:40 AM ESTSummary: Consult to Urology 2nd Attempt: Called PT to schedule consult to urology, LVM for PT to call back and ask for a metal building assembler. Thanks, GLADYS Valdez * Telephone Encounter - Renu Barahona - 09/21/2022 9:11 AM ESTSummary: Consult to Urology 1st Attempt: Called PT to schedule consult to urology, LVM for PT to call back and ask for a metal building assembler. Renu Miller PSS * Telephone Encounter - Leilani Ramirez APRN.ALDAIR - 09/21/2022 7:13 AM EST There is an active urology consult. Use to schedule with alternate provider, [facility] provider if willing * Telephone Encounter - Brooklyn Sánchez - 09/20/2022 2:[address] consult for urology. Brooklyn GRAHAM * Telephone Encounter - Mirlande Amin LPN - 09/20/2022 2:37 PM EST PSS please call Patient to schedule Consult to Urology. Per below: [facility] calls and state that they received urology referral. They are unable to see patient due to the fact Medicaid is her secondary insurance and they do not accept patients withmedicaid. Mirlande Amin LPN * Telephone Encounter - Ashley Hernandez RN - 09/20/2022 9:27 AM EST [facility] calls and state that they received urology referral. They are unable to see patient due to the fact Medicaid is her secondary insurance and they do not accept patients with medicaid. Ashley Hernandez RN documented in this encounterUniversity Hospitals Beachwood Medical Center01-19-2023 History of Present illness Narrative* Rebecca Howard, RT(R) - 09/27/2022 3:00 PM EST Radiology Service Progress Note PATIENT NAME: Garland De Santiago DATE OF SERVICE: September 27, 2022 TIME: 3:00 PM PATIENT IDENTITY VERIFICATION COMPLETED USING TWO (2) IDENTIFIERS: Name and Date of confirmedby patient verbally. FALL SCREENING: Has the patient had 2 falls in the last year or 1 fall with injury or currently using an Ambulatory Assistive Device (Walker, Cane, Wheelchair, Crutches, etc.)? No PATIENT GENDER DATA: Female. status: : No status: NO. PATIENT RELEVANT IMPLANT DATA REVIEWED: Yes RADIOLOGY DEPARTMENT: MR; Exam(s) Completed: Spine: Lumbar spine PERIPHERAL IV DATA: Not applicable SIGNED BY: RT Nelda(R) September 27, 2022 3:00 PM documented in this encounterUniversity Hospitals Beachwood Medical Center01-14-2023 History of Present illness Narrative* Rola Browne RN - 09/22/2022 6:59 PM EST INSIGHT CDM ESCALATION Provider Action/FYI: h/o COPD Trigger: Are you having any new symptoms that your PCP needs to know about? Yes Pt requested this message be sent to her PCP Over the last couple of weeks she has noticed that her lumbar pain is now extending up towards to her shoulder blades and in her cervical area Worse when sitting and standing. 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 She wants to confirm referral was [facility], Dr. Pinto . Sriram Cabrales RN * Telephone Encounter - Derick Goddard LPN - 09/19/2022 3:41 PM EST Referral and records faxed to [facility] as requested. * Telephone Encounter - Allegra Berumen APRN.HEIYD - 09/19/2022 2:56 PM EST Referral placed, please send. Thanks * Telephone Encounter - Ish Hurtado RN - 09/19/2022 1:17 PM EST Patient reports she has been having trouble with urinary incontinence, sometimes during the day, but mostly when sleeping. Reports she has a sling for some time now. Feels like she has to urinated frequently, then only releases small amount of urine. In the last month this problem has gotten worse.Asking pcp to send referral to [facility]. Patient has already spoke to them and they will see her. Does not want to travel out of town to see a Urologist. documented in this encounterUniversity Hospitals Beachwood Medical Center01-09-2023 Miscellaneous Notes* Letter - Mammography Coordinator - 09/17/2022 8:08 AM EST September 17, 2022 PID: [id number] Garland De Santiago [facility] [address] [address] Dear Ms. De Santiago, We are pleased to inform you that the results of your recent breast imaging exam on 09/14/2022 are normal. Your mammogram demonstrates that you have dense breast tissue, which could hide abnormalities. Dense breast tissue, in and of itself, is a relatively common condition. Therefore, this information is not provided to cause undue concern; rather, it is to raise your awareness and promote discussion with your health care provider regarding the presence of dense breast tissue in addition to other riskfactors. Early detection of cancer is very important. We also understand recommendations regarding breast cancer screening are controversial. Please discuss with your primary care provider which strategy is best for you and whether a mammogram is right for you. Your imaging studies and report will be kept on file at [facility] as part of your permanent medical record and are available for your continuing care. Thank you for allowing us to help in meeting your health care needs. Sincerely, Dr. Tay Interpreting Radiologist [facility] (Normal over 40) documented in this encounterUniversity Hospitals Beachwood Medical Center01-06-2023 History of Present illness Narrative* Alpa Mack RT(R) - 09/14/2022 2:50 PM EST Radiology Service Progress Note PATIENT NAME: Garland De Santiago DATE OF SERVICE: September 14, 2022 TIME: 2:33 PM PATIENT IDENTITY VERIFICATION COMPLETED USING TWO (2) IDENTIFIERS: Name and Date of confirmedby patient verbally. FALL SCREENING: Has the patient had 2 falls in the last year or 1 fall with injury or currently using an Ambulatory Assistive Device (Walker, Cane, Wheelchair, Crutches, etc.)? No PATIENT GENDER DATA: Female. status: : No status: NO. PATIENT RELEVANT IMPLANT DATA REVIEWED: Not Applicable RADIOLOGY DEPARTMENT: Mammography PERIPHERAL IV DATA: Not applicable SIGNED BY: RT Keven(R) September 14, 2022 2:33 PM documented in this encounterUniversity Hospitals Beachwood Medical Center12-30-2022 Miscellaneous Notes* Telephone Encounter - Jonnathan Nagy LPN - 09/07/2022 2:40 PM EST Order faxed, patient notified. Jonnathan Nagy LPN * Telephone Encounter - Jonnathan Nagy LPN - 09/07/2022 1:45 PM EST Order prepped and on provider's desk for signature. Referral placed. Jonnathan Nagy LPN * Telephone Encounter - Vikki Oliveira - 09/07/2022 12:44 PM EST Pt calling to follow up on isocket message 08/09/2022 regarding orders for the low dose CT lung cancer screening. She does not drive out of town and is asking that the order be sent to [facility]. Vikki Oliveira documented in this encounterUniversity Hospitals Beachwood Medical Center12-29-2022 Miscellaneous Notes* Telephone Encounter - Willam Estrada MD - 09/06/2022 12:08 AM EST Noted Patient has not been to or EC Follow up in office as needed * Telephone Encounter - Derick Goddard LPN - 09/04/2022 4:15 PM EST PATIENT NOTIFIED OF SAME. Patient states this afternoon she is starting to feel sick again with COVID symptoms. Temp 99.7. Nasal congestion/drainage. Sore throat. States will find someone to get the medication. Suggest patient have a virtual visit with [facility] on line or My Chart virtual visit when able. * Telephone Encounter - Allegra Berumen APRN.CNP - 09/04/2022 2:14 PM EST I sent in for the nystatin swish, if symptoms persist let us know. * Telephone Encounter - Ish Hurtado RN - 09/04/2022 11:55 AM EST Patient reports she has had thrush in mouth, on gums/tongue and probably in throat, because throat is starting to feel sore. Has had these s/s for a few days. Has been using warm salt water gargles and listerine gargles. Was covid positive on 08-25. Completed paxlovid by Aug 30. Continues with cough, tired, stuffy nose- all of these improved but still present. No recent antibiotics. Does use inhalers but rinses really well after. Thinks she got thrush from paxlovid, googled it and states she did read, it can cause thrush. Patient declines same day appt- stating her car is still snowed in, andshe lives alone, and has not felt well enough to shovel. Asking if pcp would send thrush medicationto [facility]? Please advise patient. Pended medication. documented in this encounterUniversity Hospitals Beachwood Medical Center12-17-2022 History of Present illness Narrative* Daphney Pro MD - 08/25/2022 9:55 AM EST Chief Complaint Patient presents with: Viral Syndrome HPI Garland De Santiago is a 62 year old female who is contacted today for a virtual follow-up lab my pleasure you have a daughter we will follow this regularlytelemedicine visit. This is an established patient of Dr. Willam Estrada MD. Patient did an at home test on Saturday after noon. Patient got her third covid booster on Saturday, Saturday she started having some symptoms Headaches followed by runny nose, sore throat, congestion, she did have a mild fever of 99 No known exposure Patient went to her daughters on Saturday and they are all not vaccinated and got covid. She has persistent asthma , with inhaled steroid and singulair she is also diabetic as well She currently has minimal sob, but her chest shin when she gets up and walks, Last night she could not get a good breath and that helped her immensely. Her home covid test was positive. We discussed paxlovid for her. Also discussed all red flags and to have low threshold to be seek help. Although she stays alone at home she Has a daughter who calls reg and she will help you as needed Past medical hishory, appointments, medications, allergies reviewed 08/25/2022 Previous Medical History PAST MEDICAL HISTORY Diagnosis Date Allergic rhinitis, cause unspecified 02/10/2007 Anxiety Arthritis Asthma 02/10/2007 Centrilobular emphysema (HCC) Depression Psychiatrist managing (Dr. Bedolla) DM type 2 (diabetes mellitus, type 2) ([facility]) Essential hypertension 05/23/2006 Hemorrhage of gastrointestinal tract, unspecified 12/13/2011 Had bleeding hemorrhoids in 2011; normal colonoscopy Internal hemorrhoids without mention of complication 12/13/2011 Mixed hyperlipidemia 05/23/2006 Obesity (BMI 30.0-34.9) YARY (obstructive sleep apnea) Uses BiPAP occasionally Other nonspecific abnormal finding 05/23/2006 CK Elevation Snoring Previous Surgical History PAST SURGICAL HISTORY Procedure Laterality Date ADENOIDECTOMY PRIMARY <AGE 12 Adenoidectomy ANTERIOR COLPORRAPHY RPR CYSTOCELE W/CYSTO Cystocele repair APPENDECTOMY APPENDECTOMY HX ARTHRP KNE CONDYLE&PLATU MEDIAL&LAT COMPARTMENTS 07/10/2015 right BACK SURGERY HX COLONOSCOPY 02/22/2022 COLONOSCOPY FLX DX W/COLLJ SPEC WHEN PFRMD 12/13/2011 Colonoscopy repeat 10 years EGD W/O BRSH SPEC VARICIES INJ 02/22/2022 ESOPHAGOGASTRODUODENOSCOPY TRANSORAL DIAGNOSTIC 02/09/2016 EGD INCISE FINGER TENDON SHEATH Right 08/10/2021 Right ring trigger finger release JOINT REPLACEMENT HX LAPS ABD PRTM&OMENTUM DX W/WO SPEC BR/WA SPX Laparoscopy LAPS SURG CHOLECYSTECTOMY W/CHOLANGIOGRAPHY 10/07/2006 LIG/TRNSXJ FLP TUBE ABDL/VAG APPR UNI/BI Tubal ligation PAST SURGICAL HISTORY OF 06/22/2010 right knee arthroscopy- by Dr Dawson ([facility]) PAST SURGICAL HISTORY OF 04/27/2020 low back surgery at [facility];s/p L4 laminectomy, decompression of L4-5 canal stenosis with bilateral L4,L5 root foraminotomies TONSILLECTOMY PRIMARY/SECONDARY <AGE 12 Tonsillectomy VAGINAL HYSTERECTOMY UTERUS 250 GM/< Hysterectomy, vaginal for menorrhagia Family History FAMILY HISTORY Problem Relation Age of Onset Hypertension Mother history of glaucoma Cervical Cancer Mother Asthma Mother Heart Father [place] x 2 Cancer Father Lung, metastatic to bone, age 77 other (aortic aneurysm) Father 50 Colon Polyps Sister Thyroid Sister Hypothyroidism Thyroid Sister Cancer Sister Lung, LLL. Resected. No Known Problems Daughter No Known Problems Son Patient Allergies ALLERGIES Allergen Reactions Dilaudid [Hydromorp* Mental Status Change Dust Mites Paxil [Paroxetine] Intolerance excessive sweating Penicillins Hives, Other: See Comments Any medication with penicillin in it. Had been given amoxicillin in 2011 and had reaction Given test dose of 2cc's on 08/17/2019 causing sever flushing along with hypotension Prednisone Intolerance Elevated BS, ER Prozac [Fluoxetine * Mental Status Change, Diarrhea Pseudoephedrine Intolerance Heart racing Vicodin [Hydrocodon* GI Upset Current Medications Current Outpatient Medications on File Prior to Visit Medication Sig albuterol HFA (VENTOLIN HFA) 90 mcg/actuation inhaler Inhale 2 Puffs as instructed every 4 hours asneeded. glipiZIDE (GLUCOTROL) 5 mg tablet Take 1 tablet by mouth once daily. As directed ALPRAZolam (XANAX) 0.5 mg tablet Take 1 tablet by mouth at bedtime as needed for up to 120 days. Donot start before August 11, 2022. metFORMIN ER (GLUCOPHAGE XR) 500 mg 24 hr tablet Take 1 tablet by mouth twice daily before meals. nystatin (MYCOSTATIN) 100,000 unit/mL suspension Take 5 mL by mouth four times daily. 1tsp swish inmouth for several minutes, then swallow (or expectorate) 4 times daily until gone. omeprazole (PRILOSEC) 20 mg capsule Take 1 capsule by mouth daily before breakfast. 1/2 hr before meal. gabapentin (NEURONTIN) 300 mg capsule Take 2 capsules by mouth every morning AND 3 capsules every evening. Do all this for 180 days. Vitamin E, dl, acetate, (VITAMIN E) 400 unit capsule Take 400 Units by mouth once daily. fluticasone (FLONASE) 50 mcg/actuation nasal spray Use 2 Sprays in each nostril once daily. Rinse mouth after use. cetirizine (ZYRTEC) 10 mg tablet Take 1 tablet by mouth once daily. sertraline (ZOLOFT) 100 mg tablet Take 2 tablets by mouth once daily. busPIRone (BUSPAR) 15 mg tablet Take 0.5 tablets by mouth twice daily. gemfibrozil (LOPID) 600 mg tablet Take 1 tablet by mouth twice daily. atenolol (TENORMIN) 50 mg tablet Take 1 tablet by mouth once daily. furosemide (LASIX) 20 mg tablet Take 1 tablet by mouth once daily. potassium chloride (K-TAB) 10 mEq tablet Take 1 tablet by mouth daily with breakfast. traZODone (DESYREL) 100 mg tablet Take 1 tablet by mouth daily at bedtime. lisinopril (ZESTRIL, PRINIVIL) 20 mg tablet Take 1 tablet by mouth once daily. peg 3350-Electrolytes (GOLYTELY) 236-22.74-6.74 -5.86 gram suspension Refer to printed prep instructions from your provider. (Patient not taking: Reported on 08/07/2022) fluticasone-vilanterol (BREO ELLIPTA) 200-25 mcg/dose inhaler Inhale 1 Inhalation as instructed once daily. aspirin, enteric coated (ASPIRIN, ENTERIC COATED) 81 mg EC tablet Take 81 mg by mouth once daily. (Patient not taking: Reported on 08/07/2022) diphenoxylate-atropine (LOMOTIL) 2.5-0.025 mg per tablet Take 1 tablet by mouth four times daily asneeded. (Patient not taking: Reported on 08/07/2022) lipase/protease/amylase (CREON ORAL) Take by mouth. Dr. Caceres, unsure of dose (Patient not taking:No sig reported) ibuprofen (MOTRIN) 600 mg tablet Take 1 tablet by mouth every 12 hours. diclofenac (VOLTAREN ARTHRITIS PAIN) 1 % topical gel Apply 2-4 g to affected area four times daily as needed (feet pain). (Patient not taking: No sig reported) Lancets lancets Test blood sugar(s) 2 times daily. Dx: Type 2 DM - Uncontrolled E11.65 Insulin: No blood sugar diagnostic (TRUE METRIX GLUCOSE TEST STRIP) test strip Test blood sugars twice a day DX: E11.65 Insulin: No Use as instructed ipratropium (ATROVENT) 0.02 % nebulizer solution Use 2.5 mL via nebulizer four times daily. Unit dose pack of 50 albuterol (PROVENTIL) 2.5 mg /3 mL (0.083 %) nebulizer solution Use 3 mL via nebulizer every 4 hours as needed for wheezing/shortness of breath. ketoconazole (NIZORAL) 2 % cream Apply 1 application to affected area once daily. Blood-Glucose Meter monitoring kit Insurance covered or per patient choice. Test blood sugar twice daily plus as needed for symptoms of blood sugars being too high or low. Dx: Type 2 DM - Uncontrolled E11.65 Insulin:No Nebulizer NEBULIZER FOR HOME USE. DX: J45.42 BIPAP Initiate BiPAP @ 20/14 cm of water with heated humidification. Ti Max 1.0, Ti Min 0.3, trigger medium, cycle high. Mask (medium AirFit F10 full face mask or per patient preference) optional chin strap (if indicated) , filters, tubing, humidifier and lifetime supplies. (Patient not taking: Reported on 08/07/2022) No current facility-administered medications on file prior to visit. Social History Social History Tobacco Use Smoking status: Every Day Packs/day: 1.00 Years: 36.00 Pack years: 36.00 Types: Cigarettes Smokeless tobacco: Never Tobacco comments: Working on smoking cessation Vaping Use Vaping Use: Never used Substance Use Topics Alcohol use: No Drug use: No Review of Symptoms GENERAL: No weight loss. No malaise or fevers HEENT: Negative for headaches No eye discharge or redness No earaches or drainage No sore throat Nose POS/NEG for congestion and nasal discharge NECK: Negative for lumps, pain or significant neck swelling RESPIRATORY: No wheezing, SOB, Difficulty breathing. CARDIOVASCULAR: Negative for chest pain GI: No nausea, vomiting, or diarrhea MUSCULOSKELETAL: Negative for muscle aches or bodyaches SKIN: Negative for lesions, rash, and itching Neuro: No lightheadedness or dizziness EXAM: There were no vitals taken for this visit. Deferred physical exam as visit was completed over the phone. Virtual visit completed using video, limited exam completed. General Appearance: Well appearing, alert, in no acute distress, well-hydrated, well nourished. Skin: Skin color Head: Normocephalic Psych: Attitude - cooperative, easily engaged in conversation Appearance - normal, hygiene and grooming appropriate Affect - euthymic, normal mood Mental status: Alert, attentive. Speech is clear and fluent with good repetition, comprehension Coordination: No abnormal or extraneous movements. Gait/Stance: Posture is normal. Health Maintenance List ALPHA-1 ANTITRYPSIN DEFICIENCY SCREENING Never done LUNG CANCER SCREENING Never done SHINGRIX VACCINE(1 of 2) Never done PNEUMOCOCCAL(2 - PCV) due on 09/09/2011 DTAP,TDAP,TD(3 - Tdap) due on 09/14/2018 DIABETIC FOOT EXAM due on 03/31/2022 URINE ALBUMIN:CREATININE RATIO due on 08/14/2022 MAMMOGRAM due on 09/11/2022 BP CONTROLLED (<130/80) due on 08/31/2022 DILATED RETINAL EXAM due on 10/09/2022 HBA1C due on 10/31/2022 LDL CHOLESTEROL due on 07/31/2023 ANNUAL PCP TEAM CHRONIC DISEASE VISIT due on 08/07/2023 COLORECTAL CANCER SCREENING due on 02/19/2032 SPIROMETRY Completed INFLUENZA Completed HEPATITIS C SCREENING Completed HIV SCREENING Completed COVID-19 VACCINE Completed PAP TESTING Discontinued HPV TESTING Discontinued Data reviewed Last 5 Encounter BP Readings: Date: BP: 08/07/2022 118/82 07/05/2022 122/78 07/02/2022 138/90 06/27/2022 142/98 06/22/2022 142/98 BMI Readings from Last 5 Encounters: 08/07/22 : 32.93 kg/m 07/02/22 : 33.25 kg/m 06/27/22 : 32.77 kg/m 06/22/22 : 33.12 kg/m 04/06/22 : 32.28 kg/m Last 5 Encounter Wt Readings: Date: Wt: 08/07/2022 92.5 kg (204 lb) 07/02/2022 93.4 kg (206 lb) 06/27/2022 92.1 kg (203 lb) 06/22/2022 93.1 kg (205 lb 3.2 oz) 04/06/2022 90.7 kg (200 lb) Medication and allergy list reviewed, reconciled and updated 08/25/2022. ASSESSMENT/PLAN: 1. COVID-19 virus infection - ICD9: 079.89, ICD10: U07.1 (primary diagnosis) Drink a lot of warm water daily. Steam inhalations 2/3 times a day Take zinc 50 mgs , vit d 5000 international unit(s) daily and vit c 500 mgs daily. Lots of rest. Eat more fruits and vegetables. If getting sob, please call us or go to the ER if worsening. Sent her hanyvid to [place] 2. Severe persistent asthma, unspecified whether complicated - ICD9: 493.90, ICD10: J45.50 Mild intermittent Asthma stable - Avoidance of triggers recommended 3. Type 2 diabetes mellitus with diabetic neuropathy, without long-term current use of insulin (HCC) - ICD9: 250.60, 357.2, ICD10: E11.40 Her sugars are fairly well controlled. Daphney Pro MD documented in this encounterUniversity Hospitals Beachwood Medical Center12-16-2022 Miscellaneous Notes* Telephone Encounter - Alpa Cuellar RN - 08/24/2022 9:38 PM EST Patient calling with request for information about how to get antiviral Covid medication order. Patient denies any new or worsening symptoms of which a provider is not aware: n/a . Patient states she spoke to a nurse earlier and chose to go to ER for evaluation, the ER had a several hour wait and she left before being seen. States she just wants an order for the medication. Per care advice alternate disposition is tele health visit. Assisted patient with downloading my [facility]uel. GO TO THE EMERGENCY ROOM OR CALL 911 IF: * You develop any new symptoms * Your condition worsens * You are concerned or anxious about your condition for any other reason. If you have any questions, you can call Nurse manager front office back. documented in this encounterUniversity Hospitals Beachwood Medical Center12-16-2022 Miscellaneous Notes* Telephone Encounter - Divina Wright RN - 08/24/2022 5:17 PM EST Reason for Call:Covid sx and tested positive on home test Outcome:Recommended to go to ED now and will get ride to [place] [facility]. Reason for Disposition Chest pain or pressure (Exception: MILD central chest pain, present only when coughing) Answer Assessment - Initial Assessment Questions 1. COVID-19 DIAGNOSIS: Covid positive home test taken just now 2. COVID-19 EXPOSURE: none 3. ONSET: got covid booster Saturday yesterday evening had headache, sore throat and fever 100 oral 4. WORST SYMPTOM: chest pressure, overall not feeling well 5. COUGH: productive cough- clear and occassional blood tinged mucus 6. FEVER: fever 99.5 oral now 7. RESPIRATORY STATUS: wheezing and productive cough- using inhaler 8. [id number]: worse 9. HIGH RISK DISEASE: Asthma, immune compromised, DM, COPD, HTN 10. VACCINE: yes 11. BOOSTER: 3 rd booster Moderna on Saturday08/20/22 12. : n/a 13. OTHER SYMPTOMS: headache, sore throat, fatigue and body aches 14. O2 SATURATION MONITOR: 97 % pulse ox during call Protocols used: Coronavirus (COVID-19) Diagnosed or [id number] documented in this encounterUniversity Hospitals Beachwood [facility] Center11-29-2022 Instructions* Patient Instructions* Willam Estrada MD - 08/07/2022 3:44 PM EST Glipizide to help with getting blood sugars back down. Hope will get down to under 150 fasting and under 180 nonfasting (at least 2 hours after last meal). After that, can try stopping the pill then treat as needed for sugar over 200. Stop med if seeing any sugars under 70. May keep taking Metformin. documented in this encounterUniversity Hospitals Beachwood [facility] Center11-29-2022 History of Present illness Narrative* Willam Estrada MD - 08/07/2022 3:32 PM EST Images from the original note were not included. This note was created using [employer]. Subjective Garland De Santiago is a 62 year old female. Patient presents with: Follow Up SUBJECTIVE: Garland De Santiago is a 62 year old year old lady here today for 4 month follow up appointment for review of medical conditions. Sugars have been running higher lately. Was on prednisone and sugars shot up and needed insulin at hospital.Not eating a whole lot since not really active but sugars still high. Sugars 200s whether has eaten. Lowest sugar 180, Highest sugar 236 Back pain flare up limiting activity so might be contributing to higher sugars. Discussed treating low sugars. After up 3 to 4 hours, back hurts so bad and has to lay down. Been going on the past 13 to 4 monthswith gradually worsening symptoms, especially the past 1 to 2. Reviewed had prior MRI and back surgery. s/p L4 laminectomy, decompression of L4-5 canal stenosis with bilateral L4, L5 root foraminotomies on 04/27/2020 Sitting , standing and walking flares up the pain. Had cauda equina syndrome back when needed surgery. Still has chronic numbness right buttocks and right leg. No cauda equina symptoms now. Reviewed that had tried PT and pain was worse after that. Already taking ibuprofen daily. Prednisone not much help. Mild leg puffiness on left. PAST MEDICAL HISTORY Diagnosis Date Allergic rhinitis, cause unspecified 02/10/2007 Anxiety Arthritis Asthma 02/10/2007 Centrilobular emphysema ([facility]) Depression Psychiatrist managing (Dr. Bedolla) DM type 2 (diabetes mellitus, type 2) ([facility]) Essential hypertension 05/23/2006 Hemorrhage of gastrointestinal tract, unspecified 12/13/2011 Had bleeding hemorrhoids in 2011; normal colonoscopy Internal hemorrhoids without mention of complication 12/13/2011 Mixed hyperlipidemia 05/23/2006 Obesity (BMI 30.0-34.9) YARY (obstructive sleep apnea) Uses BiPAP occasionally Other nonspecific abnormal finding 05/23/2006 CK Elevation Snoring PAST SURGICAL HISTORY Procedure Laterality Date ADENOIDECTOMY PRIMARY <AGE 12 Adenoidectomy ANTERIOR COLPORRAPHY RPR CYSTOCELE W/CYSTO Cystocele repair APPENDECTOMY APPENDECTOMY HX ARTHRP KNE CONDYLE&PLATU MEDIAL&LAT COMPARTMENTS 07/10/2015 right BACK SURGERY HX COLONOSCOPY 02/22/2022 COLONOSCOPY FLX DX W/COLLJ SPEC WHEN PFRMD 12/13/2011 Colonoscopy repeat 10 years EGD W/O [facility] SPEC VARICIES INJ 02/22/2022 ESOPHAGOGASTRODUODENOSCOPY TRANSORAL DIAGNOSTIC 02/09/2016 EGD INCISE FINGER TENDON SHEATH Right 08/10/2021 Right ring trigger finger release JOINT REPLACEMENT HX LAPS ABD PRTM&OMENTUM DX W/WO SPEC BR/WA SPX Laparoscopy LAPS SURG CHOLECYSTECTOMY W/CHOLANGIOGRAPHY 10/07/2006 LIG/TRNSXJ FLP TUBE ABDL/VAG APPR UNI/BI Tubal ligation PAST SURGICAL HISTORY OF 06/22/2010 right knee arthroscopy- by Dr Dawson ([facility]) PAST SURGICAL HISTORY OF 2019 low back surgery at [facility] TONSILLECTOMY PRIMARY/SECONDARY <AGE 12 Tonsillectomy VAGINAL HYSTERECTOMY UTERUS 250 GM/< Hysterectomy, vaginal for menorrhagia Current Outpatient Medications Medication Sig [START ON 08/11/2022] ALPRAZolam (XANAX) 0.5 mg tablet Take 1 tablet by mouth at bedtime as needed for up to 120 days. Do not start before August 11, 2022. metFORMIN ER (GLUCOPHAGE XR) 500 mg 24 hr tablet Take 1 tablet by mouth twice daily before meals. nystatin (MYCOSTATIN) 100,000 unit/mL suspension Take 5 mL by mouth four times daily. 1tsp swish inmouth for several minutes, then swallow (or expectorate) 4 times daily until gone. omeprazole (PRILOSEC) 20 mg capsule Take 1 capsule by mouth daily before breakfast. 1/2 hr before meal. gabapentin (NEURONTIN) 300 mg capsule Take 2 capsules by mouth every morning AND 3 capsules every evening. Do all this for 180 days. Vitamin E, dl, acetate, (VITAMIN E) 400 unit capsule Take 400 Units by mouth once daily. fluticasone (FLONASE) 50 mcg/actuation nasal spray Use 2 Sprays in each nostril once daily. Rinse mouth after use. cetirizine (ZYRTEC) 10 mg tablet Take 1 tablet by mouth once daily. sertraline (ZOLOFT) 100 mg tablet Take 2 tablets by mouth once daily. busPIRone (BUSPAR) 15 mg tablet Take 0.5 tablets by mouth twice daily. gemfibrozil (LOPID) 600 mg tablet Take 1 tablet by mouth twice daily. atenolol (TENORMIN) 50 mg tablet Take 1 tablet by mouth once daily. furosemide (LASIX) 20 mg tablet Take 1 tablet by mouth once daily. potassium chloride (K-TAB) 10 mEq tablet Take 1 tablet by mouth daily with breakfast. traZODone (DESYREL) 100 mg tablet Take 1 tablet by mouth daily at bedtime. lisinopril (ZESTRIL, PRINIVIL) 20 mg tablet Take 1 tablet by mouth once daily. fluticasone-vilanterol (BREO ELLIPTA) 200-25 mcg/dose inhaler Inhale 1 Inhalation as instructed once daily. ibuprofen (MOTRIN) 600 mg tablet Take 1 tablet by mouth every 12 hours. albuterol HFA (VENTOLIN HFA) 90 mcg/actuation inhaler Inhale 2 Puffs as instructed every 4 hours asneeded. Lancets lancets Test blood sugar(s) 2 times daily. Dx: Type 2 DM - Uncontrolled E11.65 Insulin: No blood sugar diagnostic (TRUE METRIX GLUCOSE TEST STRIP) test strip Test blood sugars twice a day DX: E11.65 Insulin: No Use as instructed ipratropium (ATROVENT) 0.02 % nebulizer solution Use 2.5 mL via nebulizer four times daily. Unit dose pack of 50 albuterol (PROVENTIL) 2.5 mg /3 mL (0.083 %) nebulizer solution Use 3 mL via nebulizer every 4 hours as needed for wheezing/shortness of breath. ketoconazole (NIZORAL) 2 % cream Apply 1 application to affected area once daily. Blood-Glucose Meter monitoring kit Insurance covered or per patient choice. Test blood sugar twice daily plus as needed for symptoms of blood sugars being too high or low. Dx: Type 2 DM - Uncontrolled E11.65 Insulin:No Nebulizer NEBULIZER FOR HOME USE. DX: J45.42 peg 3350-Electrolytes (GOLYTELY) 236-22.74-6.74 -5.86 gram suspension Refer to printed prep instructions from your provider. (Patient not taking: Reported on 08/07/2022) aspirin, enteric coated (ASPIRIN, ENTERIC COATED) 81 mg EC tablet Take 81 mg by mouth once daily. (Patient not taking: Reported on 08/07/2022) diphenoxylate-atropine (LOMOTIL) 2.5-0.025 mg per tablet Take 1 tablet by mouth four times daily asneeded. (Patient not taking: Reported on 08/07/2022) lipase/protease/amylase (CREON ORAL) Take by mouth. Dr. Caceres, unsure of dose (Patient not taking:No sig reported) diclofenac (VOLTAREN ARTHRITIS PAIN) 1 % topical gel Apply 2-4 g to affected area four times daily as needed (feet pain). (Patient not taking: No sig reported) BIPAP Initiate BiPAP @ 20/14 cm of water with heated humidification. Ti Max 1.0, Ti Min 0.3, trigger medium, cycle high. Mask (medium AirFit F10 full face mask or per patient preference) optional chin strap (if indicated) , filters, tubing, humidifier and lifetime supplies. (Patient not taking: Reported on 08/07/2022) No current facility-administered medications for this visit. Review of Systems Objective BP 118/82 Pulse 77 Wt 92.5 kg (204 lb) SpO2 95% BMI 32.93 kg/m Physical Exam Constitutional: Appearance: Normal appearance. HENT: Head: Normocephalic. Eyes: Conjunctiva/sclera: Conjunctivae normal. Cardiovascular: Rate and Rhythm: Normal rate and regular rhythm. Heart sounds: Normal heart sounds. Pulmonary: Effort: Pulmonary effort is normal. Breath sounds: Normal breath sounds. Musculoskeletal: Lumbar back: Tenderness present. Negative right straight leg raise test and negative left straight leg raise test. Back: Skin: General: Skin is warm and dry. Neurological: General: No focal deficit present. Mental Status: She is alert and oriented to person, place, and time. Psychiatric: Mood and Affect: Mood normal. Behavior: Behavior normal. Thought Content: Thought content normal. Judgment: Judgment normal. Component Latest Ref Rng & Units 03/30/2021 08/14/2021 03/28/2022 07/31/2022 07/31/2022 12:11 PM 12:11 PM Protein, Total 6.3 - 8.0 g/dL 7.2 7.7 Albumin 3.9 - 4.9 g/dL 4.5 4.6 Calcium 8.5 - 10.2 mg/dL 9.0 9.5 Bilirubin, Total 0.2 - 1.3 mg/dL 0.2 0.3 Alkaline Phosphatase 34 - 123 U/L 74 83 AST 13 - 35 U/L 16 32 Glucose 74 - 99 mg/dL 95 197 (H) BUN 7 - 21 mg/dL 14 19 Creatinine 0.58 - 0.96 mg/dL 0.53 (L) 0.59 Sodium 136 - 144 mmol/L 142 138 Potassium 3.7 - 5.1 mmol/L 3.7 4.0 Chloride 97 - 105 mmol/L 103 98 CO2 22 - 30 mmol/L 24 25 Anion Gap 9 - 18 mmol/L 15 15 ALT 7 - 38 U/L 9 20 eGFR- >60 eGFR-All Other Races . >60 eGFR >=60 mL/min/1.73m 102 WBC 3.70 - 11.00 k/uL 10.26 7.77 RBC 3.90 - 5.20 m/uL 5.11 5.32 (H) Hemoglobin 11.5 - 15.5 g/dL 14.7 15.4 Hematocrit 36.0 - 46.0 % 43.8 45.8 MCV 80.0 - 100.0 fL 85.7 86.1 MCH 26.0 - 34.0 pg 28.8 28.9 MCHC 30.5 - 36.0 g/dL 33.6 33.6 RDW-CV 11.5 - 15.0 % 13.2 12.6 Platelet Count 150 - 400 k/uL 348 275 MPV 9.0 - 12.7 fL 9.8 9.9 Absolute nRBC <0.01 k/uL <0.01 <0.01 Cholesterol, Total <200 mg/dL 149 173 Triglyceride <150 mg/dL 254 (H) 580 (H) HDL Cholesterol >39 mg/dL 30 (L) 23 (L) LDL Cholesterol 68 Non HDL Cholesterol <130 mg/dL 119 150 (H) Fasting Time hrs 12 12 VLDL Cholesterol 51 (H) 83 (H) TC:HDL Ratio <5.10 4.97 7.52 (H) LDL:HDL Ratio 2.27 Creatinine, Ur Random (UCRR) 20 - 300 mg/dL 32.2 Albumin, Urine Random mg/L <12.0 Albumin/Creat Ratio <30 mg/g Not calculated Hemoglobin A1C 4.3 - 5.6 % 6.4 (H) 6.4 (H) 7.5 (H) 8.2 (H) Estimated Average Glucose mg/dL 137 137 169 189 LDL Cholesterol, Direct <100 mg/dL 67 Assessment and Plan Encounter Diagnosis ICD-10-CM 1. Acute bilateral low back pain with bilateral sciatica M54.42 traMADol (ULTRAM) 50 mg tablet M54.41 MRI LUMBAR SPINE WO IVCON 2. Radiculopathy of lumbar region M54.16 MRI LUMBAR SPINE WO IVCON 3. Spinal stenosis of lumbar region with neurogenic claudication M48.062 MRI LUMBAR SPINE WO IVCON 4. Type 2 diabetes mellitus with diabetic neuropathy, without long-term current use of insulin (HCC) E11.40 running in 8 range; add glipizide for a short term and see if that helps drive sugars back down so can get off this 5. Cigarette smoker F17.210 6. Encounter for screening mammogram for breast cancer Z12.31 JAVIER SCREENING 7. Encounter for immunization Z23 INFLUENZA VACCINE QUADRIVALENT 6 MO - 64 YRS IM Above issues addressed with patient. Patient involved in shared decision making for management of medical issues. History and medications reviewed. Epic updated as needed Refills and/or prescriptions taken care of and meds adjusted as indicated after reviewed history, exam and labs. Health Maintenance reviewed. Updated record and/or ordered tests as recorded. Encouraged on efforts at healthy diet and regular exercise and adequate sleep. Needs to keep working on diet and exercise with lifestyle changes for effective weight loss as well as control of DM, and control of BP and lipids.Meds as noted above. Further evaluation and treatment as indicated. Tramadol for acute pain as needed. Had not been needing routinely. MRI as discussed. Further evaluation and treatment as indicated. Willam Estrada MD documented in this encounterUniversity Hospitals Beachwood [facility] Center11-28-2022 Miscellaneous Notes* Telephone Encounter - Willam Estrada MD - 08/06/2022 4:37 PM EST The following approved medication requests have been transmitted electronically. Requested Prescriptions Signed Prescriptions Disp Refills ALPRAZolam (XANAX) 0.5 mg tablet 30 tablet 3 Sig: Take 1 tablet by mouth at bedtime as needed for up to 120 days. Do not start before August 11, 2022. Authorizing Provider: WILLAM ESTRADA MD * Telephone Encounter - Derick Goddard LPN - 08/06/2022 9:12 AM EST Last office visit: 07/05/22 Next appointment scheduled: 08/07/22 Patient phones requesting refills as follows: Requested Prescriptions Pending Prescriptions Disp Refills ALPRAZolam (XANAX) 0.5 mg tablet 30 tablet 3 Sig: Take 1 tablet by mouth at bedtime as needed for up to 120 days. Please review and advise. Derick Goddard LPN documented in this encounterUniversity Hospitals Beachwood Medical Center11-11-2022 Miscellaneous Notes* Telephone Encounter - Lori Silver RN - 07/20/2022 3:44 PM EST Alyce with [facility] called in to see if Pt was on a Statin. She was notified that Pt os not. She asked if it was on her allergy list, and it is not. documented in this encounterUniversity Hospitals Beachwood [facility] Center11-07-2022 History of Present illness Narrative* Sylwia Harrison RDMS - 07/16/2022 2:30 PM EST Radiology Service Progress Note PATIENT NAME: Garland De Santiago DATE OF SERVICE: July 16, 2022 TIME: 3:04 PM PATIENT IDENTITY VERIFICATION COMPLETED USING TWO (2) IDENTIFIERS: Name and Date of confirmedby patient verbally. FALL SCREENING: Has the patient had 2 falls in the last year or 1 fall with injury or currently using an Ambulatory Assistive Device (Walker, Cane, Wheelchair, Crutches, etc.)? No PATIENT GENDER DATA: Female. status: : No status: NO. PATIENT RELEVANT IMPLANT DATA REVIEWED: Not Applicable RADIOLOGY DEPARTMENT: Ultrasound PERIPHERAL IV DATA: Not applicable SIGNED BY: Sylwia Harrison RDMS July 16, 2022 3:04 PM documented in this encounterUniversity Hospitals Beachwood Medical Center11-03-2022 Miscellaneous Notes* Telephone Encounter - Willam Estrada MD - 07/12/2022 4:15 PM EDT The following approved medication requests have been transmitted electronically. Requested Prescriptions Prescriptions Disp Refills metFORMIN ER (GLUCOPHAGE XR) 500 mg 24 hr tablet 60 tablet 5 Sig: Take 1 tablet by mouth twice daily before meals. Willam Estrada MD * Telephone Encounter - Nat Malik LPN - 07/12/2022 11:27 AM EDT Patient has been identified by name and date of : Yes Pharmacy phones for refill(s): Requested Prescriptions Pending Prescriptions Disp Refills metFORMIN ER (GLUCOPHAGE XR) 500 mg 24 hr tablet 60 tablet 5 Sig: Take 1 tablet by mouth twice daily before meals. Date of last office visit in primary care: 07/05/2022, has appt 08/07/2022 Last 2 Encounter Wt Readings: Date: Wt: 07/02/2022 93.4 kg (206 lb) 06/27/2022 92.1 kg (203 lb) Previous labs/tests for medication: Diabetes: Hemoglobin A1C (%) Date Value 03/28/2022 7.5 08/14/2021 6.4 03/30/2021 6.4 Please advise. Thank you. Nat Malik LPN documented in this encounterUniversity Hospitals Beachwood Medical Center10-31-2022 Miscellaneous Notes* Telephone Encounter - Karissa Collier RN - 07/09/2022 1:40 PM EDT Patient returned call and given provider's message below. 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 Wes Collier RN * Telephone Encounter - Sangita Guillen Ma - 07/09/2022 11:24 AM EDT Left message for return. * Telephone Encounter - Diana Andres APRN.CNP - 07/09/2022 7:56 AM EDT Please let patient know her urinary tract infection has completely resolved. I am ordering a vaginal and lower abdominal US to further evaluate the continuation of her lower abdominal pain. Take care Diana Andres APRN.CNP documented in this encounterUniversity Hospitals Beachwood Medical Center10-27-2022 History of Present illness Narrative* Diana Andres APRN.CNP - 07/05/2022 1:36 PM EDT CC: Patient presents with: Recheck: Follow up, thrush in mouth HPI Garland E Anyi is a 62 year old female who presents today for concerns of UTI, Diabetes and thinks she has thrush. Does not have the urinary frequency but still has lower abdominal discomfort and slight discomfort with urination. Pain goes up vagina at times and into lower abdomen. Had bladder sling placed and partial hysterectomy over 10 years ago without any issue. Last vaginal exam completed a few years ago which was normal. Denies any abnormal vaginal drainage, bleeding, or itchiness. Has not been sexually active for 20years. DIABETES MELLITUS: Ms. De Santiago denies excessive thirst or increased frequency of urination, chest pain or dyspnea , numbness, tingling or pain in extremities, new or unusual visual symptoms, low sugar/hypoglycemic reactions, weight loss/gain, lightheadedness/dizziness, and bowel changes/loose stools.Follows a diabetic diet most of the time. She is compliant with medication(s) and is tolerating med(s) without any side effects. She reports checking her glucose on a once a day schedule with the fasting blood sugars improving back to baseline and was 150 this morning. Patient's last HgA1C was Hemoglobin A1C (%) Date Value 03/28/2022 7.5 08/14/2021 6.4 03/30/2021 6.4 ) Still with change in taste and noticing whiteness to her gums and tongue along with sensitivity to those areas. Has history of thrush and nystatin swish and swallow works well for her. REVIEW OF SYSTEMS General: no fevers, no chills, no night sweats, no recurrent infections, no change in appetite, no change in energy, and no significant changes in weight Respiratory: no cough, no wheezing, no shortness of breath, no hemoptysis Cardiovascular: no chest pain, no chest pressure, no palpitations, and no swelling GI: No nausea, vomiting, or diarrhea : See HPI Endocrine: no fatigue, no weight gain, no weight loss, no cold intolerance, no heat intolerance, nopolyuria, no polyphagia, and no polydipsia Neurologic: No headache, weakness, numbness, tingling, dizziness, memory loss, syncope. PAST MEDICAL HISTORY Diagnosis Date Allergic rhinitis, cause unspecified 02/10/2007 Anxiety Arthritis Asthma 02/10/2007 Centrilobular emphysema (HCC) Depression Psychiatrist managing (Dr. Bedolla) DM type 2 (diabetes mellitus, type 2) ([facility]) Essential hypertension 05/23/2006 Hemorrhage of gastrointestinal tract, unspecified 12/13/2011 Had bleeding hemorrhoids in 2011; normal colonoscopy Internal hemorrhoids without mention of complication 12/13/2011 Mixed hyperlipidemia 05/23/2006 Obesity (BMI 30.0-34.9) YARY (obstructive sleep apnea) Uses BiPAP occasionally Other nonspecific abnormal finding 05/23/2006 CK Elevation Snoring PAST SURGICAL HISTORY Procedure Laterality Date ADENOIDECTOMY PRIMARY <AGE 12 Adenoidectomy ANTERIOR COLPORRAPHY RPR CYSTOCELE W/CYSTO Cystocele repair APPENDECTOMY APPENDECTOMY HX ARTHRP KNE CONDYLE&PLATU MEDIAL&LAT COMPARTMENTS 07/10/2015 right BACK SURGERY HX COLONOSCOPY 02/22/2022 COLONOSCOPY FLX DX W/COLLJ SPEC WHEN PFRMD 12/13/2011 Colonoscopy repeat 10 years EGD W/O BRSH SPEC VARICIES INJ 02/22/2022 ESOPHAGOGASTRODUODENOSCOPY TRANSORAL DIAGNOSTIC 02/09/2016 EGD INCISE FINGER TENDON SHEATH Right 08/10/2021 Right ring trigger finger release JOINT REPLACEMENT HX LAPS ABD PRTM&OMENTUM DX W/WO SPEC BR/WA SPX Laparoscopy LAPS SURG CHOLECYSTECTOMY W/CHOLANGIOGRAPHY 10/07/2006 LIG/TRNSXJ FLP TUBE ABDL/VAG APPR UNI/BI Tubal ligation PAST SURGICAL HISTORY OF 06/22/2010 right knee arthroscopy- by Dr Dawson ([facility]) PAST SURGICAL HISTORY OF 2019 low back surgery at [facility] TONSILLECTOMY PRIMARY/SECONDARY <AGE 12 Tonsillectomy VAGINAL HYSTERECTOMY UTERUS 250 GM/< Hysterectomy, vaginal for menorrhagia ALLERGIES Dilaudid [Hydromorphone (Bulk)], Dust Mites, Paxil [Paroxetine], Penicillins, Prozac [Fluoxetine Hcl], Pseudoephedrine, and Vicodin [Hydrocodone-Acetaminophen] MEDICATIONS omeprazole (PRILOSEC) 20 mg capsule Take 1 capsule by mouth daily before breakfast. 1/2 hr before meal. gabapentin (NEURONTIN) 300 mg capsule Take 2 capsules by mouth every morning AND 3 capsules every evening. Do all this for 180 days. metFORMIN ER (GLUCOPHAGE XR) 500 mg 24 hr tablet Take 1 tablet by mouth twice daily before meals. Vitamin E, dl, acetate, (VITAMIN E) 400 unit capsule Take 400 Units by mouth once daily. fluticasone (FLONASE) 50 mcg/actuation nasal spray Use 2 Sprays in each nostril once daily. Rinse mouth after use. cetirizine (ZYRTEC) 10 mg tablet Take 1 tablet by mouth once daily. sertraline (ZOLOFT) 100 mg tablet Take 2 tablets by mouth once daily. busPIRone (BUSPAR) 15 mg tablet Take 0.5 tablets by mouth twice daily. gemfibrozil (LOPID) 600 mg tablet Take 1 tablet by mouth twice daily. atenolol (TENORMIN) 50 mg tablet Take 1 tablet by mouth once daily. furosemide (LASIX) 20 mg tablet Take 1 tablet by mouth once daily. potassium chloride (K-TAB) 10 mEq tablet Take 1 tablet by mouth daily with breakfast. traZODone (DESYREL) 100 mg tablet Take 1 tablet by mouth daily at bedtime. ALPRAZolam (XANAX) 0.5 mg tablet Take 1 tablet by mouth at bedtime as needed for up to 120 days. Donot start before April 11, 2022. lisinopril (ZESTRIL, PRINIVIL) 20 mg tablet Take 1 tablet by mouth once daily. peg 3350-Electrolytes (GOLYTELY) 236-22.74-6.74 -5.86 gram suspension Refer to printed prep instructions from your provider. fluticasone-vilanterol (BREO ELLIPTA) 200-25 mcg/dose inhaler Inhale 1 Inhalation as instructed once daily. aspirin, enteric coated (ASPIRIN, ENTERIC COATED) 81 mg EC tablet Take 81 mg by mouth once daily. diphenoxylate-atropine (LOMOTIL) 2.5-0.025 mg per tablet Take 1 tablet by mouth four times daily asneeded. lipase/protease/amylase (CREON ORAL) Take by mouth. Dr. Caceres, unsure of dose (Patient not taking:Reported on 04/06/2022 ) ibuprofen (MOTRIN) 600 mg tablet Take 1 tablet by mouth every 12 hours. diclofenac (VOLTAREN ARTHRITIS PAIN) 1 % topical gel Apply 2-4 g to affected area four times daily as needed (feet pain). (Patient not taking: Reported on 04/06/2022 ) albuterol HFA (VENTOLIN HFA) 90 mcg/actuation inhaler Inhale 2 Puffs as instructed every 4 hours asneeded. Lancets lancets Test blood sugar(s) 2 times daily. Dx: Type 2 DM - Uncontrolled Insulin: No blood sugar diagnostic (TRUE METRIX GLUCOSE TEST STRIP) test strip Test blood sugars twice a day DX: E11. Insulin: No Use as instructed ipratropium (ATROVENT) 0.02 % nebulizer solution Use 2.5 mL via nebulizer four times daily. Unit dose pack of 50 albuterol (PROVENTIL) 2.5 mg /3 mL (0.083 %) nebulizer solution Use 3 mL via nebulizer every 4 hours as needed for wheezing/shortness of breath. ketoconazole (NIZORAL) 2 % cream Apply 1 application to affected area once daily. Blood-Glucose Meter monitoring kit Insurance covered or per patient choice. Test blood sugar twice daily plus as needed for symptoms of blood sugars being too high or low. Dx: Type 2 DM - Uncontrolled Insulin:No Nebulizer NEBULIZER FOR HOME USE. DX: J45.42 BIPAP Initiate BiPAP @ 20/14 cm of water with heated humidification. Ti Max 1.0, Ti Min 0.3, trigger medium, cycle high. Mask (medium AirFit F10 full face mask or per patient preference) optional chin strap (if indicated) , filters, tubing, humidifier and lifetime supplies. FAMILY HISTORY Problem Relation Age of Onset Hypertension Mother history of glaucoma Cervical Cancer Mother Asthma Mother Heart Father CO x 2 Cancer Father Lung, metastatic to bone, age 77 other (aortic aneurysm) Father 50 Colon Polyps Sister Thyroid Sister Hypothyroidism Thyroid Sister Cancer Sister Lung, LLL. Resected. No Known Problems Daughter No Known Problems Son Social History Tobacco Use Smoking status: Every Day Packs/day: 1.00 Years: 36.00 Pack years: 36.00 Types: Cigarettes Smokeless tobacco: Never Vaping Use Vaping Use: Never used Substance Use Topics Alcohol use: No Drug use: No PHYSICAL EXAM BP 122/78 Pulse 68 Resp 16 General Appearance: well appearing, in no acute distress, alert Skin: Skin color, texture, turgor normal for age; Neck: Thyroid normal size and symmetric without palpable nodules, No adenopathy Oropharynx: Positive for whiteness to tongue and lower gums similar to thrush Lymph nodes: No cervical lymphadenopathy and No supraclavicular lymphadenopathy Lungs: Lungs clear to auscultation. No wheezing, rhonchi, rales. Heart: RRR without murmur, gallop, or rubs. No ectopy Abdomen: Abdomen Bowel sounds normal. No masses, organomegaly Some tenderness to to upper umbilicalarea that patient says is not new for her but some tenderness to lower abdomen which she says is the new pain for the past few months. No grimacing guarding, rigidity or rebound pain. BUE Extremities: No deformities, edema, skin discoloration, clubbing or cyanosis. Good capillary refill. Health maintenance reviewed with patient: ALPHA-1 ANTITRYPSIN DEFICIENCY SCREENING Never done LUNG CANCER SCREENING Never done SHINGRIX VACCINE(1 of 2) Never done PNEUMOCOCCAL(2 - PCV) due on 09/09/2011 DTAP,TDAP,TD(3 - Tdap) due on 09/14/2018 LDL CHOLESTEROL due on 03/30/2022 DIABETIC FOOT EXAM due on 03/31/2022 INFLUENZA(1) due on 05/10/2022 COVID-19 VACCINE(5 - Booster for Moderna series) due on 06/01/2022 MAMMOGRAM due on 09/11/2022 URINE ALBUMIN:CREATININE RATIO due on 08/14/2022 BP CONTROLLED (<130/80) due on 08/31/2022 HBA1C due on 09/28/2022 DILATED RETINAL EXAM due on 10/09/2022 ANNUAL PCP TEAM CHRONIC DISEASE VISIT due on 07/02/2023 COLORECTAL CANCER SCREENING due on 02/19/2032 SPIROMETRY Completed HEPATITIS C SCREENING Completed HIV SCREENING Completed PAP TESTING Discontinued HPV TESTING Discontinued DATA REVIEWED: No new labs ASSESSMENT/PLAN: 1. Type 2 diabetes mellitus with diabetic neuropathy, without long-term current use of insulin (HCC) - ICD9: 250.60, 357.2, ICD10: E11.40 (primary diagnosis) improved control - discussed event rebeka she has tolerated steroids in the past she may need a sliding scale of insulin in the future if ever absolutely necessary to be on in the future. - Continue current medications - can go back to previous metformin dosage - since she had been increasing it for short term she needs a short dose sent in - Blood glucose monitoring on a once a day schedule - BP goal of <130/80 - LDL goal of <100 2. Lower abdominal pain - ICD9: 789.09, ICD10: R10.30 - if urine is negative or this does not resolve after next treatment if necessary , patient will need US and vaginal exam to further evaluate - for increased abdominal pain, fever, rigidity of the abdomen go to ER - URINALYSIS, WITH MICROSCOPIC - URINE CULTURE 3. Recent urinary tract infection - ICD9: V13.02, ICD10: Z87.440 As above - URINALYSIS, WITH MICROSCOPIC - URINE CULTURE 4. Thrush - ICD9: 112.0, ICD10: B37.0 - nystatin as ordered - do not wear dentures until irritation to gums is resolved. Prescription instructions reviewed with patient as applicable. Potential red flag symptoms discussed with the patient. Reviewed appropriate action plan to take if red flag symptoms occur. Patient agreeable to treatment plan. Diana Andres APRN.CNP documented in this encounterUniversity [facility]10-26-2022 Miscellaneous Notes* Telephone Encounter - Diana Andres APRN.CNP - 07/04/2022 7:12 PM EDT Noted. Will review in appointment. Thank you Diana Andres APRN.CNP * Telephone Encounter - Nat Malik LPN - 07/04/2022 1:08 PM EDT Patient calling said she was in [facility] ER 07/02 her blood sugars was in 300 range, she was taken off the prednisone rx. Patient said she was told to take metformin 1000 mg twice daily to get her blood sugars down, fasting blood sugar today was 189. Patient said she still feels UTI symptoms, was on keflex and changed to cipro. Advised patient that need to schedule appt to have urine checked again. Patient said she is not sure if she has thrush, no coating in her mouth but mouth burning. Patient said hard to eat much, able to eat toast with butter. Scheduled patient appt with BRIMMING MACHINE OPERATOR 07/05 at 120 pm, she has seen Diana Andres few times recently, requesting her again. documented in this encounterUniversity Hospitals [facility]10-24-2022 History of Present illness Narrative* Diana Andres, SECTION LEADER SCREEN PRINTING.PARTS DEPARTMENT MANAGER - 07/02/2022 11:54 AM EDT P CC: Patient presents with: Recheck: Follow up wheezing, UTI HPI Garland De Santiago is a 62 year old female who presents today for Wheezing, shortness of breath, andsinus congestion has resolved and improved, but now has new symptoms Has not seen pulmonology in over a year and is continuing to smoke. Patient states she is abnormally sweaty, thirstier than usual, felt like her heart was racing, and typically has abdominal tenderness but feels it might slightly be higher than usual. Does have a history of controlled diabetes and has never had issues like this on steroids. Has not been checking her blood sugar, so unsure what she usually runs prior to steroids or currently. Has the equipment at home to check her blood sugar. REVIEW OF SYSTEMS General: no fevers, no chills, no night sweats, no recurrent infections, no change in appetite, no change in energy, and no significant changes in weight Respiratory: no cough, no wheezing, no shortness of breath, no hemoptysis Cardiovascular: no chest pain, no chest pressure, no palpitations, and no swelling GI: No nausea, vomiting, or diarrhea : No history of dysuria, frequency or incontinence Neurologic: No headache, weakness, numbness, tingling, dizziness, syncope. PAST MEDICAL HISTORY Diagnosis Date Allergic rhinitis, cause unspecified 02/10/2007 Anxiety Arthritis Asthma 02/10/2007 Centrilobular emphysema (HCC) Depression Psychiatrist managing (Dr. Bedolla) DM type 2 (diabetes mellitus, type 2) ([facility]) Essential hypertension 05/23/2006 Hemorrhage of gastrointestinal tract, unspecified 12/13/2011 Had bleeding hemorrhoids in 2011; normal colonoscopy Internal hemorrhoids without mention of complication 12/13/2011 Mixed hyperlipidemia 05/23/2006 Obesity (BMI 30.0-34.9) YARY (obstructive sleep apnea) Uses BiPAP occasionally Other nonspecific abnormal finding 05/23/2006 CK Elevation Snoring PAST SURGICAL HISTORY Procedure Laterality Date ADENOIDECTOMY PRIMARY <AGE 12 Adenoidectomy ANTERIOR COLPORRAPHY RPR CYSTOCELE W/CYSTO Cystocele repair APPENDECTOMY APPENDECTOMY HX ARTHRP KNE CONDYLE&PLATU MEDIAL&LAT COMPARTMENTS 07/10/2015 right BACK SURGERY HX COLONOSCOPY 02/22/2022 COLONOSCOPY FLX DX W/COLLJ SPEC WHEN PFRMD 12/13/2011 [facility] VARICIES INJ 02/22/2022 ESOPHAGOGASTRODUODENOSCOPY TRANSORAL DIAGNOSTIC 02/09/2016 EGD INCISE FINGER TENDON SHEATH Right 08/10/2021 Right ring trigger finger release JOINT REPLACEMENT HX LAPS ABD PRTM&OMENTUM DX W/WO SPEC BR/WA SPX Laparoscopy LAPS SURG CHOLECYSTECTOMY W/CHOLANGIOGRAPHY 10/07/2006 LIG/TRNSXJ FLP TUBE ABDL/VAG APPR UNI/BI Tubal ligation PAST SURGICAL HISTORY OF 06/22/2010 right knee arthroscopy- by Dr Dawson ([facility]) PAST SURGICAL HISTORY OF 2019 low back surgery at [facility] TONSILLECTOMY PRIMARY/SECONDARY <AGE 12 Tonsillectomy VAGINAL HYSTERECTOMY UTERUS 250 GM/< Hysterectomy, vaginal for menorrhagia ALLERGIES Dilaudid [Hydromorphone (Bulk)], Dust Mites, Paxil [Paroxetine], Penicillins, Prozac [Fluoxetine Hcl], Pseudoephedrine, and Vicodin [Hydrocodone-Acetaminophen] MEDICATIONS predniSONE (DELTASONE) 10 mg tablet Take 4 tabs daily x 3 days, then 3 tabs x 3 days, 2 tabs x 3 days, then 1 tab x3 days with food. montelukast (SINGULAIR) 10 mg tablet Take 1 tablet by mouth daily at bedtime. ciprofloxacin HCl (CIPRO) 500 mg tablet Take 1 tablet by mouth twice daily for 5 days. gabapentin (NEURONTIN) 300 mg capsule Take 2 capsules by mouth every morning AND 3 capsules every evening. Do all this for 180 days. metFORMIN ER (GLUCOPHAGE XR) 500 mg 24 hr tablet Take 1 tablet by mouth twice daily before meals. Vitamin E, dl, acetate, (VITAMIN E) 400 unit capsule Take 400 Units by mouth once daily. fluticasone (FLONASE) 50 mcg/actuation nasal spray Use 2 Sprays in each nostril once daily. Rinse mouth after use. cetirizine (ZYRTEC) 10 mg tablet Take 1 tablet by mouth once daily. sertraline (ZOLOFT) 100 mg tablet Take 2 tablets by mouth once daily. busPIRone (BUSPAR) 15 mg tablet Take 0.5 tablets by mouth twice daily. gemfibrozil (LOPID) 600 mg tablet Take 1 tablet by mouth twice daily. atenolol (TENORMIN) 50 mg tablet Take 1 tablet by mouth once daily. furosemide (LASIX) 20 mg tablet Take 1 tablet by mouth once daily. potassium chloride (K-TAB) 10 mEq tablet Take 1 tablet by mouth daily with breakfast. traZODone (DESYREL) 100 mg tablet Take 1 tablet by mouth daily at bedtime. ALPRAZolam (XANAX) 0.5 mg tablet Take 1 tablet by mouth at bedtime as needed for up to 120 days. Donot start before April 11, 2022. lisinopril (ZESTRIL, PRINIVIL) 20 mg tablet Take 1 tablet by mouth once daily. peg 3350-Electrolytes (GOLYTELY) 236-22.74-6.74 -5.86 gram suspension Refer to printed prep instructions from your provider. fluticasone-vilanterol (BREO ELLIPTA) 200-25 mcg/dose inhaler Inhale 1 Inhalation as instructed once daily. aspirin, enteric coated (ASPIRIN, ENTERIC COATED) 81 mg EC tablet Take 81 mg by mouth once daily. diphenoxylate-atropine (LOMOTIL) 2.5-0.025 mg per tablet Take 1 tablet by mouth four times daily asneeded. lipase/protease/amylase (CREON ORAL) Take by mouth. Dr. Caceres, unsure of dose (Patient not taking:Reported on 04/06/2022 ) ibuprofen (MOTRIN) 600 mg tablet Take 1 tablet by mouth every 12 hours. diclofenac (VOLTAREN ARTHRITIS PAIN) 1 % topical gel Apply 2-4 g to affected area four times daily as needed (feet pain). (Patient not taking: Reported on 04/06/2022 ) albuterol HFA (VENTOLIN HFA) 90 mcg/actuation inhaler Inhale 2 Puffs as instructed every 4 hours asneeded. Lancets lancets Test blood sugar(s) 2 times daily. Dx: Type 2 DM - Uncontrolled E11.65 Insulin: No blood sugar diagnostic (TRUE METRIX GLUCOSE TEST STRIP) test strip Test blood sugars twice a day DX: E11.65 Insulin: No Use as instructed ipratropium (ATROVENT) 0.02 % nebulizer solution Use 2.5 mL via nebulizer four times daily. Unit dose pack of 50 albuterol (PROVENTIL) 2.5 mg /3 mL (0.083 %) nebulizer solution Use 3 mL via nebulizer every 4 hours as needed for wheezing/shortness of breath. ketoconazole (NIZORAL) 2 % cream Apply 1 application to affected area once daily. Blood-Glucose Meter monitoring kit Insurance covered or per patient choice. Test blood sugar twice daily plus as needed for symptoms of blood sugars being too high or low. Dx: Type 2 DM - Uncontrolled E11.65 Insulin:No Nebulizer NEBULIZER FOR HOME USE. DX: J45.42 BIPAP Initiate BiPAP @ 20/14 cm of water with heated humidification. Ti Max 1.0, Ti Min 0.3, trigger medium, cycle high. Mask (medium AirFit F10 full face mask or per patient preference) optional chin strap (if indicated) , filters, tubing, humidifier and lifetime supplies. FAMILY HISTORY Problem Relation Age of Onset Hypertension Mother history of glaucoma Cervical Cancer Mother Asthma Mother Heart Father CO x 2 Cancer Father Lung, metastatic to bone, age 77 other (aortic aneurysm) Father 50 Colon Polyps Sister Thyroid Sister Hypothyroidism Thyroid Sister Cancer Sister Lung, LLL. Resected. No Known Problems Daughter No Known Problems Son Social History Tobacco Use Smoking status: Every Day Packs/day: 1.00 Years: 36.00 Pack years: 36.00 Types: Cigarettes Smokeless tobacco: Never Vaping Use Vaping Use: Never used Substance Use Topics Alcohol use: No Drug use: No PHYSICAL EXAM BP 138/90 Pulse 88 Resp 16 Wt 93.4 kg (206 lb) SpO2 98% BMI 33.25 kg/m General Appearance: well appearing, in no acute distress, alert Skin: Skin color, texture, turgor normal for age; Eyes: conjunctiva pink and moist, no icterus, sclera white, non-injected Neck: Thyroid normal size and symmetric without palpable nodules, No adenopathy Lymph nodes: No cervical lymphadenopathy and No supraclavicular lymphadenopathy Lungs: No rhonchi, rales. Expiratory wheezes noted to RLL Heart: RRR without murmur, gallop, or rubs. No ectopy Abdomen: Abdomen soft, Bowel sounds normal. No masses, organomegaly, slight tenderness reported to epigastric region. No grimacing guarding rigidity or rebound pain noted. BUE Extremities: No deformities, edema, skin discoloration, clubbing or cyanosis. Good capillary refill. ASSESSMENT/PLAN: 1. Severe persistent asthma, unspecified whether complicated - ICD9: 493.90, ICD10: J45.50 (primarydiagnosis) - back to baseline - Continue current meds - Avoidance of triggers recommended - CONSULT TO PULMONARY MEDICINE 2. Chronic obstructive pulmonary disease, unspecified COPD type (HCC) - ICD9: 496, ICD10: J44.9 - back to baseline - discussed importance of quitting smoking and how important that is and that she is not toleratingsteroids so quitting smoking is her best option - CONSULT TO PULMONARY MEDICINE 3. Type 2 diabetes mellitus with diabetic neuropathy, without long-term current use of insulin (HCC) - ICD9: 250.60, 357.2, ICD10: E11.40 - urine dip with glucose along with her symptoms feel her blood sugar is uncontrolled - patient declined blood sugar check in office - states she will take it at home and call in with results/my chart message started so patient can send message to me directly once she gets home. - discussed blood sugar check should be fasting first thing in AM, before meals, or 2 hours after eating. - Continue current medications - keep upcoming appointment with PCP. 4. Recent urinary tract infection - ICD9: V13.02, ICD10: Z87.440 - UA dip negative for signs of infection, only glucose 5. Abdominal tenderness without rebound tenderness, unspecified location - ICD9: 789.60, ICD10: R10.819 - omeprazole as ordered. - possible irritation from prednisone. - UA DIP, URINE (POC) Prescription instructions reviewed with patient as applicable. Potential red flag symptoms discussed with the patient. Reviewed appropriate action plan to take if red flag symptoms occur. Patient agreeable to treatment plan. Diana Andres APRN.CNP documented in this encounterUniversity [facility]als [facility]10-19-2022 History of Present illness Narrative* Diana Andres APRN.CNP - 06/27/2022 4:53 PM EDT CC: Patient presents with: Shortness of Breath: SOB, Wheezing, on keflex for UTI HPI Garland De Santiago is a 62 year old female who presents today for SOB and wheezing. Went to urgent care for UTI symptoms and congestion with wheezing. She was put on macrobid for UTI and prednsione for respiratory complaints. Then after culture antibiotic was chagned to keflex on the . Is currently taking keflex as prescribed. Still with some burning on urination and increasedfrequency. Came today because she has had cough and sinus congestion for over a week. States it is getting worse and coughing up thick yellow sputum, Has progressed with increased wheezing and shortness of breath and states she just doesn't feel good. Denies temp higher than 99.5 but feels feverish at times Denies chest pain, swelling, or palpitations. Is asthmatic and pft this past September did show obstruction indicating COPD. Takes breo as ordered and using emergency inhaler once every 1-2 hours which is much more than usual. Is a smoker and continuing to smoke during this time. Did have a chest xray prior to arriving ordered by her PCP which did not show acute infection. REVIEW OF SYSTEMS General: no fevers, no night sweats, no recurrent infections, and no significant changes in weight Respiratory: See HPI Cardiovascular: no chest pain, no chest pressure, no palpitations, and no swelling GI: No nausea, vomiting, or diarrhea : See HPI Neurologic: No headache, weakness, numbness, tingling, dizziness, memory loss, syncope. PAST MEDICAL HISTORY Diagnosis Date Allergic rhinitis, cause unspecified 02/10/2007 Anxiety Arthritis Asthma 02/10/2007 Centrilobular emphysema ([facility]) Depression Psychiatrist managing (Dr. Bedolla) DM type 2 (diabetes mellitus, type 2) ([facility]) Essential hypertension 05/23/2006 Hemorrhage of gastrointestinal tract, unspecified 12/13/2011 Had bleeding hemorrhoids in 2012; normal colonoscopy Internal hemorrhoids without mention of complication 12/13/2011 Mixed hyperlipidemia 05/23/2006 Obesity (BMI 30.0-34.9) YARY (obstructive sleep apnea) Uses BiPAP occasionally Other nonspecific abnormal finding 05/23/2006 CK Elevation Snoring PAST SURGICAL HISTORY Procedure Laterality Date ADENOIDECTOMY PRIMARY <AGE 12 Adenoidectomy ANTERIOR COLPORRAPHY RPR CYSTOCELE W/CYSTO Cystocele repair APPENDECTOMY APPENDECTOMY HX ARTHRP KNE CONDYLE&PLATU MEDIAL&LAT COMPARTMENTS 07/10/2015 right BACK SURGERY HX COLONOSCOPY 02/22/2022 COLONOSCOPY FLX DX W/COLLJ SPEC WHEN PFRMD 12/13/2011 Colonoscopy repeat 10 years EGD W/O [facility] SPEC VARICIES INJ 02/22/2022 ESOPHAGOGASTRODUODENOSCOPY TRANSORAL DIAGNOSTIC 02/09/2016 EGD INCISE FINGER TENDON SHEATH Right 08/10/2021 Right ring trigger finger release JOINT REPLACEMENT HX LAPS ABD PRTM&OMENTUM DX W/WO SPEC BR/WA SPX Laparoscopy LAPS SURG CHOLECYSTECTOMY W/CHOLANGIOGRAPHY 10/07/2006 LIG/TRNSXJ FLP TUBE ABDL/VAG APPR UNI/BI Tubal ligation PAST SURGICAL HISTORY OF 06/22/2010 right knee arthroscopy- by Dr Dawson ([facility]) PAST SURGICAL HISTORY OF 2019 low back surgery at [facility] TONSILLECTOMY PRIMARY/SECONDARY <AGE 12 Tonsillectomy VAGINAL HYSTERECTOMY UTERUS 250 GM/< Hysterectomy, vaginal for menorrhagia ALLERGIES Dilaudid [Hydromorphone (Bulk)], Dust Mites, Paxil [Paroxetine], Penicillins, Prozac [Fluoxetine Hcl], Pseudoephedrine, and Vicodin [Hydrocodone-Acetaminophen] MEDICATIONS cephALEXin (KEFLEX) 500 mg capsule Take 1 capsule by mouth twice daily for 7 days. predniSONE (DELTASONE) 20 mg tablet 2 pills daily x 3 days, then 1 pill daily x 3 days, then 1/2 pill daily x 4 days. gabapentin (NEURONTIN) 300 mg capsule Take 2 capsules by mouth every morning AND 3 capsules every evening. Do all this for 180 days. metFORMIN ER (GLUCOPHAGE XR) 500 mg 24 hr tablet Take 1 tablet by mouth twice daily before meals. Vitamin E, dl, acetate, (VITAMIN E) 400 unit capsule Take 400 Units by mouth once daily. fluticasone (FLONASE) 50 mcg/actuation nasal spray Use 2 Sprays in each nostril once daily. Rinse mouth after use. cetirizine (ZYRTEC) 10 mg tablet Take 1 tablet by mouth once daily. sertraline (ZOLOFT) 100 mg tablet Take 2 tablets by mouth once daily. busPIRone (BUSPAR) 15 mg tablet Take 0.5 tablets by mouth twice daily. gemfibrozil (LOPID) 600 mg tablet Take 1 tablet by mouth twice daily. atenolol (TENORMIN) 50 mg tablet Take 1 tablet by mouth once daily. furosemide (LASIX) 20 mg tablet Take 1 tablet by mouth once daily. potassium chloride (K-TAB) 10 mEq tablet Take 1 tablet by mouth daily with breakfast. traZODone (DESYREL) 100 mg tablet Take 1 tablet by mouth daily at bedtime. ALPRAZolam (XANAX) 0.5 mg tablet Take 1 tablet by mouth at bedtime as needed for up to 120 days. Donot start before April 11, 2022. lisinopril (ZESTRIL, PRINIVIL) 20 mg tablet Take 1 tablet by mouth once daily. peg 3350-Electrolytes (GOLYTELY) 236-22.74-6.74 -5.86 gram suspension Refer to printed prep instructions from your provider. ursodiol (ACTIGALL) 300 mg capsule Take 1 capsule by mouth twice daily. (Patient not taking: Reported on 06/22/2022) fluticasone-vilanterol (BREO ELLIPTA) 200-25 mcg/dose inhaler Inhale 1 Inhalation as instructed once daily. aspirin, enteric coated (ASPIRIN, ENTERIC COATED) 81 mg EC tablet Take 81 mg by mouth once daily. diphenoxylate-atropine (LOMOTIL) 2.5-0.025 mg per tablet Take 1 tablet by mouth four times daily asneeded. lipase/protease/amylase (CREON ORAL) Take by mouth. Dr. Caceres, unsure of dose (Patient not taking:Reported on 04/06/2022 ) ibuprofen (MOTRIN) 600 mg tablet Take 1 tablet by mouth every 12 hours. diclofenac (VOLTAREN ARTHRITIS PAIN) 1 % topical gel Apply 2-4 g to affected area four times daily as needed (feet pain). (Patient not taking: Reported on 04/06/2022 ) albuterol HFA (VENTOLIN HFA) 90 mcg/actuation inhaler Inhale 2 Puffs as instructed every 4 hours asneeded. Lancets lancets Test blood sugar(s) 2 times daily. Dx: Type 2 DM - Uncontrolled E11.65 Insulin: No blood sugar diagnostic (TRUE METRIX GLUCOSE TEST STRIP) test strip Test blood sugars twice a day DX: E11.65 Insulin: No Use as instructed ipratropium (ATROVENT) 0.02 % nebulizer solution Use 2.5 mL via nebulizer four times daily. Unit dose pack of 50 albuterol (PROVENTIL) 2.5 mg /3 mL (0.083 %) nebulizer solution Use 3 mL via nebulizer every 4 hours as needed for wheezing/shortness of breath. ketoconazole (NIZORAL) 2 % cream Apply 1 application to affected area once daily. Blood-Glucose Meter monitoring kit Insurance covered or per patient choice. Test blood sugar twice daily plus as needed for symptoms of blood sugars being too high or low. Dx: Type 2 DM - Uncontrolled E11.65 Insulin:No Nebulizer NEBULIZER FOR HOME USE. DX: J45.42 BIPAP Initiate BiPAP @ 20/14 cm of water with heated humidification. Ti Max 1.0, Ti Min 0.3, trigger medium, cycle high. Mask (medium AirFit F10 full face mask or per patient preference) optional chin strap (if indicated) , filters, tubing, humidifier and lifetime supplies. (Patient not taking: Reported on 04/06/2022 ) FAMILY HISTORY Problem Relation Age of Onset Hypertension Mother history of glaucoma Cervical Cancer Mother Asthma Mother Heart Father [place] x 2 Cancer Father Lung, metastatic to bone, age 77 other (aortic aneurysm) Father 50 Colon Polyps Sister Thyroid Sister Hypothyroidism Thyroid Sister Cancer Sister Lung, LLL. Resected. No Known Problems Daughter No Known Problems Son Social History Tobacco Use Smoking status: Every Day Packs/day: 1.00 Years: 36.00 Pack years: 36.00 Types: Cigarettes Smokeless tobacco: Never Vaping Use Vaping Use: Never used Substance Use Topics Alcohol use: No Drug use: No PHYSICAL EXAM BP 142/98 Pulse 73 Temp 36.8 C (98.3 F) (Temporal) Resp 16 Wt 92.1 kg (203 lb) SpO2 98% BMI 32.77 kg/m General Appearance: well appearing, in no acute distress, alert Skin: Skin color, texture, turgor normal for age; Eyes: conjunctiva pink and moist, no icterus, sclera white, non-injected Lungs: lung sounds very tight throughout with inspiratory and expiratory wheezing. Heart: RRR without murmur, gallop, or rubs. No ectopy Extremities: No deformities, edema, skin discoloration, clubbing or cyanosis. Good capillary refill. Health maintenance reviewed with patient: ALPHA-1 ANTITRYPSIN DEFICIENCY SCREENING Never done LUNG CANCER SCREENING Never done SHINGRIX VACCINE(1 of 2) Never done PNEUMOCOCCAL(2 - PCV) due on 09/09/2011 DTAP,TDAP,TD(3 - Tdap) due on 09/14/2018 LDL CHOLESTEROL due on 03/30/2022 DIABETIC FOOT EXAM due on 03/31/2022 INFLUENZA(1) due on 05/10/2022 COVID-19 VACCINE(5 - Booster for Moderna series) due on 06/01/2022 MAMMOGRAM due on 09/11/2022 URINE ALBUMIN:CREATININE RATIO due on 08/14/2022 BP CONTROLLED (<130/80) due on 08/31/2022 HBA1C due on 09/28/2022 DILATED RETINAL EXAM due on 10/09/2022 ANNUAL PCP TEAM CHRONIC DISEASE VISIT due on 04/06/2023 COLORECTAL CANCER SCREENING due on 02/19/2032 SPIROMETRY Completed HEPATITIS C SCREENING Completed HIV SCREENING Completed PAP TESTING Discontinued HPV TESTING Discontinued DATA REVIEWED: Most recent imaging ASSESSMENT/PLAN: 1. COPD with exacerbation (HCC) - ICD9: 491.21, ICD10: J44.1 (primary diagnosis) - patient with increased sputum, wheezing, and shortness of breath, and increased use of emergency inhaler and nebulizer for her asthma - starting cipro and patient can stop the keflex for UTI as she has had no change in symptoms with the keflex. - discussed possible interaction with trazadone, patient prefers to hold trazadone and be on cipro - prednisone taper - montelukast - follow up on Saturday - go to ER for increased Shortness of breath, chest pain, lethargy, confusion, or any other urgent concern - is supposed to use a bipap at bedtime for sleep apnea, encouraged patient to start using this. 2. Moderate persistent asthma with acute exacerbation - ICD9: 493.92, ICD10: J45.41 As a above 3. Urinary tract infection without hematuria, site unspecified - ICD9: 599.0, ICD10: N39.0 - patient concerned as she does not get UTIs very often - will re-evaluate at follow up and maybe order a urine 10-14 days after treatment. Prescription instructions reviewed with patient as applicable. Potential red flag symptoms discussed with the patient. Reviewed appropriate action plan to take if red flag symptoms occur. Patient agreeable to treatment plan. Diana Andres APRN.CNP documented in this encounterUniversity Hospitals [facility]10-19-2022 Miscellaneous Notes* Telephone Encounter - Diana Andres APRN.CNP - 06/27/2022 10:53 AM EDT Will review at appointment Diana Andres APRN.CNP * Telephone Encounter - Lori Silver RN - 06/27/2022 9:20 AM EDT Pt called and is notified of providers message and instructions. Pt voices understanding. Pt scheduled with Diana Andres BRIMMING MACHINE OPERATOR today at 440 pm, will get chest x- ray done before appointment. Lori Silver RN * Telephone Encounter - Willam Estrada MD - 06/27/2022 1:28 AM EDT If she is still smoking, it will take longer to get over illness since smoking injures the cells inher lung lining to help clear congestion. Also, if was not on an antibiotic to help with fighting possible respiratory infection, would take longer to get better. Noted was on med for UTI that would not cover for respiratory bugs. If does not respond to change in antibiotic, should be seen to see how she is sounding and get CXR before that appointment. CXR order filed * Telephone Encounter - Ashley Hernandez RN - 06/26/2022 10:34 AM EDT Patient calls and states that she still has chest congestion. Patient was seen at [facility] on 06/22/2022. Patient was prescribed Macrobid for UTI. Patient's culture came back and patient reportedthat she still is having urinary symptoms and antibiotic was switched to Cephalexin yesterday. Patient took the first dose yesterday evening. Patient concerned because she still has chest congestion even though she was put on prednisone and antibiotics. Patient asking if provider thinks she needs a chest x ray? Please review and advise, Ashley Hernandez RN documented in this encounterUniversity Hospitals Beachwood [facility] Center10-18-2022 History of Present illness Narrative* Rola Browne RN - 06/26/2022 3:47 PM EDT INSIGHT CDM ESCALATION Provider Action/FYI: h/o COPD Trigger: Are you having any new symptoms that your PCP needs to know about? Yes Do you have new or worse shortness of breath with activity? Yes Do you have new or worsening cough? Yes Do you have new or worsening wheezing? Yes Do you need to use your rescue (Albuterol) inhaler or nebulizer more often than normal? Yes Pt still having urinary frequency, suprapubic discomfort and flank pain. No burning with urination or fever. Feels sick. Antibiotic was changed to keflex. Pt has takes one yesterday and one today so far. Drinking water Pt was coughing and wheezing earlier today. Lungs feel tight Using the breo and her albuterol twice so far today Still on prednisone taper 'I thought I would feel better after being on a steroid since the Pt sent her PCP a my chart message asking if she should get a chest x-ray? Pt declined speaking with a virtualist. She would rather wait and see what her PCP suggests. Message received via: InSight - Yes contact made with patient ACTION TAKEN: Based on concrete finisher apprentice, the following disposition is advised: SYMPTOMS PRESENT NOT SEVERE: No action required - Continue outreach / Phone Call documented in this encounterUniversity Hospitals Beachwood [facility] Center10-14-2022 History of Present illness Narrative* Rufus Cruz PA-C - 06/22/2022 3:44 PM EDT This note was created using Apprityriter. Subjective Garland De Santiago is a 62 year old female. HPI Presents with allergies and UTI symptoms. She has been using her Breo and Albuterol MDI. She states that her chest feels tight and she has been wheezing with a productive cough of white sputum PAST MEDICAL HISTORY Diagnosis Date Allergic rhinitis, cause unspecified 02/10/2007 Anxiety Arthritis Asthma 02/10/2007 Centrilobular emphysema (HCC) Depression Psychiatrist managing (Dr. Bedolla) DM type 2 (diabetes mellitus, type 2) (HCC) Essential hypertension 05/23/2006 Hemorrhage of gastrointestinal tract, unspecified 12/13/2011 Had bleeding hemorrhoids in 2011; normal colonoscopy Internal hemorrhoids without mention of complication 12/13/2011 Mixed hyperlipidemia 05/23/2006 Obesity (BMI 30.0-34.9) YARY (obstructive sleep apnea) Uses BiPAP occasionally Other nonspecific abnormal finding 05/23/2006 CK Elevation Snoring PAST SURGICAL HISTORY Procedure Laterality Date ADENOIDECTOMY PRIMARY <AGE 12 Adenoidectomy ANTERIOR COLPORRAPHY RPR CYSTOCELE W/CYSTO Cystocele repair APPENDECTOMY APPENDECTOMY HX ARTHRP KNE CONDYLE&PLATU MEDIAL&LAT COMPARTMENTS 07/10/2015 right BACK SURGERY HX COLONOSCOPY 02/22/2022 COLONOSCOPY FLX DX W/COLLJ SPEC WHEN PFRMD 12/13/2011 [facility] 02/22/2022 ESOPHAGOGASTRODUODENOSCOPY TRANSORAL DIAGNOSTIC 02/09/2016 EGD INCISE FINGER TENDON SHEATH Right 08/10/2021 Right ring trigger finger release JOINT REPLACEMENT HX LAPS ABD PRTM&OMENTUM DX W/WO SPEC BR/WA SPX Laparoscopy LAPS SURG CHOLECYSTECTOMY W/CHOLANGIOGRAPHY 10/07/2006 LIG/TRNSXJ FLP TUBE ABDL/VAG APPR UNI/BI Tubal ligation PAST SURGICAL HISTORY OF 06/22/2010 right knee arthroscopy- by Dr Dawson ([facility]) PAST SURGICAL HISTORY OF 2019 low back surgery at [facility] TONSILLECTOMY PRIMARY/SECONDARY <AGE 12 Tonsillectomy VAGINAL HYSTERECTOMY UTERUS 250 GM/< Hysterectomy, vaginal for menorrhagia ALLERGIES Dilaudid [Hydromorphone (Bulk)], Dust Mites, Paxil [Paroxetine], Penicillins, Prozac [Fluoxetine Hcl], Pseudoephedrine, and Vicodin [Hydrocodone-Acetaminophen] MEDICATIONS gabapentin (NEURONTIN) 300 mg capsule Take 2 capsules by mouth every morning AND 3 capsules every evening. Do all this for 180 days. metFORMIN ER (GLUCOPHAGE XR) 500 mg 24 hr tablet Take 1 tablet by mouth twice daily before meals. Vitamin E, dl, acetate, (VITAMIN E) 400 unit capsule Take 400 Units by mouth once daily. fluticasone (FLONASE) 50 mcg/actuation nasal spray Use 2 Sprays in each nostril once daily. Rinse mouth after use. cetirizine (ZYRTEC) 10 mg tablet Take 1 tablet by mouth once daily. sertraline (ZOLOFT) 100 mg tablet Take 2 tablets by mouth once daily. busPIRone (BUSPAR) 15 mg tablet Take 0.5 tablets by mouth twice daily. gemfibrozil (LOPID) 600 mg tablet Take 1 tablet by mouth twice daily. atenolol (TENORMIN) 50 mg tablet Take 1 tablet by mouth once daily. furosemide (LASIX) 20 mg tablet Take 1 tablet by mouth once daily. potassium chloride (K-TAB) 10 mEq tablet Take 1 tablet by mouth daily with breakfast. traZODone (DESYREL) 100 mg tablet Take 1 tablet by mouth daily at bedtime. ALPRAZolam (XANAX) 0.5 mg tablet Take 1 tablet by mouth at bedtime as needed for up to 120 days. Donot start before April 11, 2022. lisinopril (ZESTRIL, PRINIVIL) 20 mg tablet Take 1 tablet by mouth once daily. peg 3350-Electrolytes (GOLYTELY) 236-22.74-6.74 -5.86 gram suspension Refer to printed prep instructions from your provider. ursodiol (ACTIGALL) 300 mg capsule Take 1 capsule by mouth twice daily. (Patient not taking: Reported on 06/22/2022) fluticasone-vilanterol (BREO ELLIPTA) 200-25 mcg/dose inhaler Inhale 1 Inhalation as instructed once daily. aspirin, enteric coated (ASPIRIN, ENTERIC COATED) 81 mg EC tablet Take 81 mg by mouth once daily. diphenoxylate-atropine (LOMOTIL) 2.5-0.025 mg per tablet Take 1 tablet by mouth four times daily asneeded. lipase/protease/amylase (CREON ORAL) Take by mouth. Dr. Caceres, unsure of dose (Patient not taking:Reported on 04/06/2022 ) ibuprofen (MOTRIN) 600 mg tablet Take 1 tablet by mouth every 12 hours. diclofenac (VOLTAREN ARTHRITIS PAIN) 1 % topical gel Apply 2-4 g to affected area four times daily as needed (feet pain). (Patient not taking: Reported on 04/06/2022 ) albuterol HFA (VENTOLIN HFA) 90 mcg/actuation inhaler Inhale 2 Puffs as instructed every 4 hours asneeded. Lancets lancets Test blood sugar(s) 2 times daily. Dx: Type 2 DM - Uncontrolled E11.65 Insulin: No blood sugar diagnostic (TRUE METRIX GLUCOSE TEST STRIP) test strip Test blood sugars twice a day DX: E11.65 Insulin: No Use as instructed ipratropium (ATROVENT) 0.02 % nebulizer solution Use 2.5 mL via nebulizer four times daily. Unit dose pack of 50 albuterol (PROVENTIL) 2.5 mg /3 mL (0.083 %) nebulizer solution Use 3 mL via nebulizer every 4 hours as needed for wheezing/shortness of breath. ketoconazole (NIZORAL) 2 % cream Apply 1 application to affected area once daily. Blood-Glucose Meter monitoring kit Insurance covered or per patient choice. Test blood sugar twice daily plus as needed for symptoms of blood sugars being too high or low. Dx: Type 2 DM - Uncontrolled E11.65 Insulin:No Nebulizer NEBULIZER FOR HOME USE. DX: J45.42 BIPAP Initiate BiPAP @ 20/14 cm of water with heated humidification. Ti Max 1.0, Ti Min 0.3, trigger medium, cycle high. Mask (medium AirFit F10 full face mask or per patient preference) optional chin strap (if indicated) , filters, tubing, humidifier and lifetime supplies. (Patient not taking: Reported on 04/06/2022 ) FAMILY HISTORY Problem Relation Age of Onset Hypertension Mother history of glaucoma Cervical Cancer Mother Asthma Mother Heart Father [place] x 2 Cancer Father Lung, metastatic to bone, age 77 other (aortic aneurysm) Father 50 Colon Polyps Sister Thyroid Sister Hypothyroidism Thyroid Sister Cancer Sister Lung, LLL. Resected. No Known Problems Daughter No Known Problems Son Social History Tobacco Use Smoking status: Every Day Packs/day: 1.00 Years: 36.00 Pack years: 36.00 Types: Cigarettes Smokeless tobacco: Never Vaping Use Vaping Use: Never used Substance Use Topics Alcohol use: No Drug use: No Review of Systems Constitutional: Positive for fatigue. Negative for chills, diaphoresis and fever. HENT: Positive for congestion. Negative for ear pain, postnasal drip, rhinorrhea, sinus pressure, sinus pain and sore throat. Respiratory: Positive for cough, chest tightness and wheezing. Negative for shortness of breath. Genitourinary: Positive for dysuria, frequency and urgency. Neurological: Positive for headaches. Negative for dizziness and light-headedness. All other systems reviewed and are negative. Objective BP 142/98 Pulse 81 Temp 36.6 C (97.9 F) Resp 20 Wt 93.1 kg (205 lb 3.2 oz) SpO2 96% BMI33.12 kg/m Physical Exam Vitals and nursing note reviewed. Constitutional: Appearance: Normal appearance. HENT: Head: Normocephalic and atraumatic. Right Ear: Tympanic membrane, ear canal and external ear normal. Left Ear: Tympanic membrane, ear canal and external ear normal. Nose: Nose normal. No congestion or rhinorrhea. Mouth/Throat: Mouth: Mucous membranes are moist. Pharynx: Oropharynx is clear. No oropharyngeal exudate or posterior oropharyngeal erythema. Eyes: Conjunctiva/sclera: Conjunctivae normal. Cardiovascular: Rate and Rhythm: Normal rate and regular rhythm. Pulses: Normal pulses. Heart sounds: Normal heart sounds. Pulmonary: Effort: Pulmonary effort is normal. Breath sounds: Wheezing and rhonchi present. Abdominal: General: Bowel sounds are normal. Palpations: Abdomen is soft. Tenderness: There is no right CVA tenderness or left CVA tenderness. Musculoskeletal: General: Normal range of motion. Cervical back: Normal range of motion. No tenderness. Lymphadenopathy: Cervical: No cervical adenopathy. Skin: General: Skin is warm and dry. Neurological: General: No focal deficit present. Mental Status: She is alert. Psychiatric: Mood and Affect: Mood normal. Assessment and Plan ASSESSMENT/PLAN: 1. Painful urination - ICD9: 788.1, ICD10: R30.9 (primary diagnosis) acute - UA positive for [place] esterase - Patient education for prevention given - UA DIP, URINE (POC) 2. URI, acute - ICD9: 465.9, ICD10: J06.9 - Discussed viral etiology and rationale for treatment. - Symptomatic treatment with prn analgesia - Supportive care with fluids and rest Rufus Cruz PA-C documented in this encounterUniversity Hospitals [facility]10-03-2022 Miscellaneous Notes* Telephone Encounter - Mirlande Amin LPN - 06/11/2022 8:42 PM EDT Patient has been identified by name and date of : Yes Patient phones for refill(s): Requested Prescriptions Pending Prescriptions Disp Refills gabapentin (NEURONTIN) 300 mg capsule 150 capsule 5 Sig: Take 2 capsules by mouth every morning AND 3 capsules every evening. Do all this for 180 days. Date of last office visit in primary care: 04/06/2022 4 month follow-up: 08/07/2022 Last 2 Encounter Wt Readings: Date: Wt: 04/06/2022 90.7 kg (200 lb) 03/13/2022 92.5 kg (204 lb) Previous labs/tests for medication: Not applicable Please advise. Thank you. Mirlande Amin LPN * Telephone Encounter - Faye Morales Pss - 06/11/2022 10:08 AM EDT Patient has been identified by name and date of : Yes Requested Prescriptions Pending Prescriptions Disp Refills gabapentin (NEURONTIN) 300 mg capsule 150 capsule 5 Sig: Take 2 capsules by mouth every morning AND 3 capsules every evening. Do all this for 180 days. RX INSTRUCTIONS: Pharmacy initiated this request. No need to notify patient. Faye Morales Pss documented in this encounterUniversity Hospitals Beach[facility] Center09-06-2022 History of Present illness Narrative* Sherie Kay RN - 05/15/2022 2:30 PM EDT INSIGHT CDM ESCALATION Provider Action/FYI: LMOM Message received via: InSight - No contact made with patient Left Message for PatientJordan Martinez my name is Sherie Olsen RN from the [facility]. I amcalling about your responses to our InSight Home Monitoring questionnaire. Sorry I am not able to speak with you. If you have a problem that needs to be addressed by your physician please contact your PCP office--End Outreach documented in this encounterUniversity Hospitals Beachwood [facility] Center08-30-2022 History of Present illness Narrative* Steven Yunier, PT - 05/08/2022 3:56 PM EDT Episode Visit Count: 5 Therapist That Will Oversee The Plan Of Care: Steven Faye Start of Care Date: 04/10/22 Onset Date: 01/08/21 Plan of Care Certification Date: 05/08/22 Next Certification Due Date: 06/12/22 Patient Identified by Name and Date of : Yes REHABILITATION AND SPORTS THERAPY PHYSICAL THERAPY PROGRESS REPORT PLAN OF CARE UPDATE: Assessment: Garland De Santiago demonstrates difficulty with pain with prolonged standing, pain with lumbar AROM, decreased core strength and balance and improvements in levels of independence with theHEP. She hasprogressed toward goals. Patient continues to present with impairments in ADL's, balance, independence in exercise, overall function, and strength that interfere with . Current prognosis is Good due to: current objective clinical presentation;good overall health status . She will benefit from continued skilled therapy services to meet the updated goals for this plan of care as noted below. Goals for Episode of Care: created on 04/10/22 through 06/05/22 Pt will demo 30 sec STS score of 12 in 8 weeks or less - Not assessed Pt will demo SL stance for 15 sec each leg - Not assessed Fisher in home exercise program. - MET so far Increased strength of LE to 5/5 for improved lumbo-pelvic stability and decreased back pain - Not met, will continue Pt will be able to maintain good posture for 80% or greater of a treatment Session - Progressing, will continue Pt will report overall improvement of LBP by 50% in 8 weeks (NEW) Planned Interventions, Frequency, and Duration: 1x/week, 4 weeks Total Number of Visits Planned: 4 Patient to be seen for Therapeutic exercise (14292);Neuromuscular re-education (06819);Manual therapy (33570);Self-long-term management (43156);Patient/Family/Caregiver Education PLAN FOR NEXT VISIT: Balance training in the parallel bars Classification Low Back Pain Subgroup Classification: Core stabilization subgroup: recommended visits 10. SUBJECTIVE: Patient Reason for Visit: Pt states she does not feel much improvement at this point. But she did have a flare up of pain in her back and knee which slowed any progress and one cancelled appointment due to unforseen circumstances Pain: Pain Pain Level: 0 Pain Location: Back Additional Pain Information : Location 2 Pain Level 2: 1 Pain Location 2: Knee - Left;Knee - Right PROMIS Scales Higher is Better 05/14/2020 03/28/2021 04/15/2022 Phys Func - Score 35 (moderate dysfunction) - 38 (moderate dysfunction) Phys Func - Percentile 7 % - 12 % Social Roles - Score 34 (moderate dysfunction) - 40 (mild dysfunction) Social Role - Percentile 5 % - 16 % GH Physical - Score 37.4 39.8 (Fair) 29.6 (Poor) GH Physical - Percentile 10 % 15 % 2 % GH Mental - Score 33.8 33.8 (Fair) 36.3 (Fair) GH Mental - Percentile 5 % 5 % 9 % Self-Eff Symptom - Score - - 38 (Low) Self-Eff Symptom - Percentile - - 12 % T-scores: mean of general population = 50. 5 points is clinically meaningfully difference Percentiles provide an indication of how the patient's score ranks in relation to the general population. Higher percentile rankings indicate better function/quality of life. 50th percentile is the average of the general population and indicates half of respondents had a worse score. Lower is Better 05/14/2020 04/15/2022 Fatigue - Score 64 (moderate) 61 (moderate) Fatigue - Percentile 8 % 14 % T-scores: mean of general population = 50. 5 points is clinically meaningfully difference Percentiles provide an indication of how the patient's score ranks in relation to the general population. Higher percentile rankings indicate better function/quality of life. 50th percentile is the average of the general population and indicates half of respondents had a worse score. OBJECTIVE MEASURES WITH LEVEL OF FUNCTION: Lumbar Spine AROM Lumbar Flexion: Normal (slight increase in pain on return to upright position) Lumbar R Side-Bend: Increased pain;Minimal limitation Lumbar L Side-Bend: Increased pain;Minimal limitation LE AROM Tested?: Yes LE AROM R LE AROM: WFL L LE AROM: WFL LE Strength R LE Strength: Grossly 5/5 L LE Strength: Grossly 5/5 unless otherwise noted R Hip Extension: 3+/5 R Hip ABduction: 3+/5 L Hip Extension: 3+/5 L Hip ABduction: 3+/5 TREATMENT: Therapeutic Exercise: 1: All objective measures taken this session 2: Core bracing on stabilizer to 60 mmHg x 10 counting to 3 3: Core bracing on stabilizer to 60 mmHg with alternating marches 3 x 10 4: Core bracing on stabilizer to 60 mmHg with bent knee fallouts x 10 reps 5: SciFit x 5 min lvl 1.0 (Discussed subjective and progress thus far) Skilled Intervention: Patient was educated in proper exercise technique and purpose for exercises. Skilled judgment was provided in selection of appropriate interventions. Provided written instruction for home exercise program to facilitate proper performance and compliance. Correct performance of therapeutic exercises was facilitated with verbal, visual, and tactile cuing. Billing Therapeutic Exercise Treatment Minutes: 40 Total Treatment Time Minutes (timed/untimed): 40 Steven Faye PT documented in this encounterUniversity Hospitals Beachwood Medical Center08-11-2022 History of Present illness Narrative* Steven Faye PT - 04/19/2022 1:57 PM EDT Episode Visit Count: 3 Therapist That Will Oversee The Plan Of Care: Steven Faye Start of Care Date: 04/10/22 Onset Date: 01/08/21 Plan of Care Certification Date: 04/10/22 Next Certification Due Date: 05/22/22 Patient Identified by Name and Date of : Yes REHABILITATION AND SPORTS THERAPY PHYSICAL THERAPY TREATMENT NOTE ASSESSMENT: Garland De Santiago tolerated the session with expected muscle soreness. She demonstrateddifficulty with some back pain with transitioning from lying down to standing. The patient will continue to benefit from ongoing skilled physical therapy to progress toward set goals. PLAN FOR NEXT VISIT: Balance training with pad and eyes closed. Tandem walking. Strengthen back extensors SUBJECTIVE: Patient Reason for Visit: HEP compliant. Feels like strengthening is occurring. Pain: Pain Pain Level: 0 Pain Location: Low Back/Lumbar Spine - Left;Low Back/Lumbar Spine - Right Post Treatment Pain Post Treatment Pain Location: Low Back/Lumbar Spine - Left;Low Back/Lumbar Spine - Right OBJECTIVE MEASURES WITH LEVEL OF FUNCTION: Functional Performance Test Results 30 Second Chair Stand Test: 13 reps TREATMENT: Therapeutic Exercise: 1: SciFit x 4 min 2: Squat 3 x 10 reps 3: Seated VTB Row 2 x 10 reps 4: Hooklying bridge x 10 reps 5: Prone hip ext alternating 3 x 10 bilat Skilled Intervention: Patient was educated in proper exercise technique and purpose for exercises. Neuromuscular Re-Education: 1: NBOS eyes open 2 x 30 sec 2: NBOS eyes closed 2 x 30 sec 3: NBOS eyes closed with head turns x 5 4: NBOS with arm movements on pad with eyes open x Ts and I's 5: Tandem stance 2 x 20 sec each leg 6: Standing eyes open on pad with 7# MB press x 10 7: Standing NBOS eyes closed with perturbations x 60 seconds Skilled Intervention: Insured patient safety with use of gait belt and CGA Billing Therapeutic Exercise Treatment Minutes: 30 Neuromuscular Re-Education Treatment Minutes: 30 Total Treatment Time Minutes (timed/untimed): 60 Steven Faye PT documented in this encounterUniversity Hospitals Beachwood [facility] Center08-09-2022 History of Present illness Narrative* Steven Faye PT - 04/17/2022 4:00 PM EDT Episode Visit Count: 2 Therapist That Will Oversee The Plan Of Care: Steven Faye Start of Care Date: 04/10/22 Onset Date: 01/08/21 Plan of Care Certification Date: 04/10/22 Next Certification Due Date: 05/22/22 Patient Identified by Name and Date of : Yes REHABILITATION AND SPORTS THERAPY PHYSICAL THERAPY TREATMENT NOTE ASSESSMENT: Garland De Santiago tolerated the session with no issues. She demonstrated good form withtherapeutic exercises. The patient will continue to benefit from ongoing skilled physical therapy to progress toward set goals. PLAN FOR NEXT VISIT: Balance training and lumbopelvic strengthening SUBJECTIVE: Patient Reason for Visit: Pt did have some back pain yesterday when flipping a mattress. Was active for 15 min and this sent the pain accross the back. Pain: Pain Pain Level: 0 Pain Location: Low Back/Lumbar Spine - Left;Low Back/Lumbar Spine - Right Post Treatment Pain Post Treatment Pain Location: Low Back/Lumbar Spine - Left;Low Back/Lumbar Spine - Right OBJECTIVE MEASURES WITH LEVEL OF FUNCTION: L and R paraspinals around lumbar incision are tight and slightly tender on the L TREATMENT: Therapeutic Exercise: 1: TA bracing with november 3 x 10 2: Hooklying bridge 2 x 10, then x 12 3: Prone hip ext x 8 each side 4: Discussed modification to the HEP Skilled Intervention: Patient was educated in proper exercise technique and purpose for exercises. Provided written instruction for home exercise program to facilitate proper performance and compliance. Manual Therapy: 1: Discussed self massage using lacrosse ball vs wall and pillow case. Discussed proepr duration, technique, and intensity 2: Self massage on wall x 5 min Skilled Intervention: Manual skills to improve joint mobility, ROM, and decrease pain. Utilized anatomy knowledge of the therapist, and assessment of patient's response to intervention. Billing Therapeutic Exercise Treatment Minutes: 30 Manual TherapyTreatment Minutes: 9 Total Treatment Time Minutes (timed/untimed): 39 Steven Faye PT documented in this encounterUniversity Hospitals Beachwood [facility] Center08-03-2022 Miscellaneous Notes* Telephone Encounter - Ann Garcia LPN - 04/11/2022 2:10 PM EDT last seen pcp 04/06/22. Next appt with pcp 08/07/22. This is a new pharmacy. * Telephone Encounter - Chelsie Cruz - 04/11/2022 1:29 PM EDT Patient has been identified by name and date of : Yes Pending Prescriptions Disp Refills METFORMIN ER 500 MG TABLET,EXTENDED RELEASE 24 HR 60 tablet 11 Sig: Take 1 tablet by mouth twice daily before meals. LUCY: No RX INSTRUCTIONS: Patient aware RX will be sent to pharmacy. No need to notify patient. Chelsie Cruz documented in this encounterUniversity Hospitals Beach[facility]08-02-2022 History of Present illness Narrative* Steven Faye PT - 04/10/2022 4:45 PM EDT Episode Visit Count: 1 Therapist That Will Oversee The Plan Of Care: Steven Faye Start of Care Date: 04/10/22 Onset Date: 01/08/21 Plan of Care Certification Date: 04/10/22 Next Certification Due Date: 05/22/22 Patient Identified by Name and Date of : Yes REHABILITATION AND SPORTS THERAPY PHYSICAL THERAPY EVALUATION PLAN OF CARE: Assessment: Garland De Santiago presents with chief complaint of LBP and decreased balance that interferes with walking . She presents with impairments in ADL's, balance, joint mobility, overall function and strength. Prognosis for therapy is Good due to: current objective clinical presentation;good overall health status . Pt demonstrates decreased core strength and decreased balance. She will benef it from skilled therapy services to meet the goals established for this plan of care as noted below. Balance assessment to be performed during the next session Classification Low Back Pain Subgroup Classification: Core stabilization subgroup: recommended visits 10. Goals for Episode of Care: created on 04/10/22 through 06/05/22 Pt will demo 30 sec STS score of 12 in 8 weeks or less Pt will demo SL stance for 15 sec each leg Fisher in home exercise program. Increased strength of LE to 5/5 for improved lumbo-pelvic stability and decreased back pain Pt will be able to maintain good posture for 80% or greater of a treatment session Planned Interventions, Frequency, and Duration: Current Frequency: 2x/week Duration: 4 weeks Total Number of Visits Planned: 8 Planned Treatment Interventions: Therapeutic exercise (45279);Neuromuscular re- education ([id number]);Manual therapy (09417);Self-long-term management ([id number]);Patient/Family/Caregiver Education PLAN FOR NEXT VISIT: Progress TA strengthening as tolerated. Balance training. Patient demonstrates good understanding of plan of care and treatment. The above goals and plan of care were discussed and agreed upon by patient/family. SUBJECTIVE: Garland De Santiago is a 61 year old female seen today for LBP and balance. yesterday pt was walking for 15 min and this hurt the lower back. Hard to straighten up and feels hunched-over.Pt has a R knee replacement and there is pain in the lateral portion of the knee. Pain can move laterally acress the back bilateral. Pain does not travel down the legs. Some numbness in the R buttockand back of the thigh. Functional Limitations: walking Prior Level of Function: Independent without limitations Home Environment Patient Lives With: Self/Alone Home Type: Apt/Condo (upper level) Number Of Stairs To Bed/Bath: 19 Intake Information: Prescription present Falls Interview: No positive findings with falls interview Red Flags Vertebral Fracture Red Flags: Female Vertebral Fracture Clinical Reasoning: Proceed with caution due to the above (1- 2) risk factors Spine History Symptoms Location at Onset: Back Pain: Pain Pain Level: 0 (10) Pain Location: Low Back/Lumbar Spine - Left;Low Back/Lumbar Spine - Right Post Treatment Pain Post Treatment Pain Level: 0 Post Treatment Pain Location: Low Back/Lumbar Spine - Left;Low Back/Lumbar Spine - Right PROMIS Scales Higher is Better 05/14/2020 05/14/2020 03/28/2021 Phys Func - Score - 35 (moderate dysfunction) - Phys Func - Percentile - 7 % - Social Roles - Score - 34 (moderate dysfunction) - Social Role - Percentile - 5 % - GH Physical - Score - 37.4 39.8 (Fair) GH Physical - Percentile 10 % 10 % 15 % GH Mental - Score - 33.8 33.8 (Fair) GH Mental - Percentile 5 % 5 % 5 % T-scores: mean of general population = 50. 5 points is clinically meaningfully difference Percentiles provide an indication of how the patient's score ranks in relation to the general population. Higher percentile rankings indicate better function/quality of life. 50th percentile is the average of the general population and indicates half of respondents had a worse score. Lower is Better 05/14/2020 Fatigue - Score 64 (moderate) Fatigue - Percentile 8 % T-scores: mean of general population = 50. 5 points is clinically meaningfully difference Percentiles provide an indication of how the patient's score ranks in relation to the general population. Higher percentile rankings indicate better function/quality of life. 50th percentile is the average of the general population and indicates half of respondents had a worse score. OBJECTIVE MEASURES WITH LEVEL OF FUNCTION: Lumbar Spine AROM LE AROM Tested?: Yes LE AROM R LE AROM: WFL L LE AROM: WFL LE Strength R LE Strength: Grossly 5/5 (Unless otherwise noted) L LE Strength: Grossly 5/5 unless otherwise noted R Hip Extension: 3+/5 R Hip ABduction: 3+/5 L Hip Extension: 3+/5 L Hip ABduction: 3+/5 Gait Gait Observation: At times pt loses balance to one side Functional Performance Test Results 30 Second Chair Stand Test: 9 reps 4 Stage Balance Test Narrow base of support (sec): 30 sec (Very unsteady with eyes closed) Tandem base of support (sec): 15 sec Single leg stance - right (sec): 8 sec Single leg stance - left (sec): 7 sec Education: Education Learning Preferences: Demonstration;Explanation;Performance;Printed Materials Barriers: None Learning/educational needs: Home exercise program;Plan of Care Education Provided: Yes, see treatment interventions for education provided Education Provided To: Patient Education Mode/Type: Demonstration;Explanation/Discussion;Literature/Printed Materials;Performance Response to Education/Teach Back: States/Identifies;Return Demonstration TREATMENT: PT Treatment Interventions: Neuromuscular Re-Education Evaluation Neuromuscular Re-Education: 1: Discussed therapy goals and exam findings. Discussed the need for core stability and appropriateuse of the TA muscle and avoiding crunches/sit-ups. 2: Facilitated TA activation in Hooklying with use of tactile cues on the lower abdomen 3: Hooklying TA 2 x 10 counting to 3 outloud Skilled Intervention: Skilled judgment used to assess appropriate program for balance and coordination activity. Manual facilitation of the TA muscle in hooklying Billing * Evaluation Low Complexity: 1 Unit Neuromuscular Re-Education Treatment Minutes: 24 Total Treatment Time Minutes (timed/untimed): 45 Steven Faye PT documented in this encounterUniversity Hospitals Beachwood [facility] Center07-29-2022 History of Present illness Narrative* Willam Estrada MD - 04/06/2022 2:42 PM EDT This note was created using Apprityriter. Subjective Garland De Santiago is a 61 year old female. Patient presents with: Follow Up SUBJECTIVE: Garland De Santiago is a 61 year old year old lady here today for 4 month follow up appointment for review of medical conditions. Concerned about toes. Worse numbness. Pain worse at night when lays down--feels like toes crushed. Feet are dry. OTC lotions have not helped. Gold Celis for feet, VaselineGetginshira. Reviewed that had spinal surgery 1 to 2 years ago. Ms. De Santiago is s/p L4 laminectomy, decompression of L4-5 canal stenosis with bilateral L4, L5 root foraminotomies on 04/27/2020. Has noted increased back pain. Does have to carry things up and down stairs in her new place. Too much can cause more back pain. Has not worked on exercises--did not have PT after surgery. Knows poor posture. Stomach bloating noted. Noted feet issues. 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 Discussed that has fibrosis of liver. Following with Dr. Caceres. PAST MEDICAL HISTORY Diagnosis Date Allergic rhinitis, cause unspecified 02/10/2007 Anxiety Arthritis Asthma 02/10/2007 Centrilobular emphysema (HCC) Depression Psychiatrist managing (Dr. Bedolla) DM type 2 (diabetes mellitus, type 2) (HCC) Essential hypertension 05/23/2006 Hemorrhage of gastrointestinal tract, unspecified 12/13/2011 Had bleeding hemorrhoids in 2011; normal colonoscopy Internal hemorrhoids without mention of complication 12/13/2011 Mixed hyperlipidemia 05/23/2006 Obesity (BMI 30.0-34.9) YARY (obstructive sleep apnea) Uses BiPAP occasionally Other nonspecific abnormal finding 05/23/2006 CK Elevation Snoring Current Outpatient Medications Medication Sig Vitamin E, dl, acetate, (VITAMIN E) 400 unit capsule Take 400 Units by mouth once daily. lisinopril (ZESTRIL, PRINIVIL) 20 mg tablet Take 1 tablet by mouth once daily. ursodiol (ACTIGALL) 300 mg capsule Take 1 capsule by mouth twice daily. fluticasone-vilanterol (BREO ELLIPTA) 200-25 mcg/dose inhaler Inhale 1 Inhalation as instructed once daily. gabapentin (NEURONTIN) 300 mg capsule Take 2 capsules by mouth every morning AND 3 capsules every evening. Do all this for 180 days. Do not start before December 09, 2021. ALPRAZolam (XANAX) 0.5 mg tablet Take 1 tablet by mouth at bedtime as needed for up to 120 days. Donot start before December 09, 2021. ibuprofen (MOTRIN) 600 mg tablet Take 1 tablet by mouth every 12 hours. albuterol HFA (VENTOLIN HFA) 90 mcg/actuation inhaler Inhale 2 Puffs as instructed every 4 hours asneeded. Lancets lancets Test blood sugar(s) 2 times daily. Dx: Type 2 DM - Uncontrolled Insulin: No blood sugar diagnostic (TRUE METRIX GLUCOSE TEST STRIP) test strip Test blood sugars twice a day DX: Insulin: No Use as instructed metFORMIN ER (GLUCOPHAGE XR) 500 mg 24 hr tablet Take 1 tablet by mouth twice daily before meals. ipratropium (ATROVENT) 0.02 % nebulizer solution Use 2.5 mL via nebulizer four times daily. Unit dose pack of 50 albuterol (PROVENTIL) 2.5 mg /3 mL (0.083 %) nebulizer solution Use 3 mL via nebulizer every 4 hours as needed for wheezing/shortness of breath. ketoconazole (NIZORAL) 2 % cream Apply 1 application to affected area once daily. cetirizine (ZYRTEC) 10 mg tablet Take 1 tablet by mouth once daily. sertraline (ZOLOFT) 100 mg tablet Take 2 tablets by mouth once daily. busPIRone (BUSPAR) 15 mg tablet Take 0.5 tablets by mouth twice daily. gemfibrozil (LOPID) 600 mg tablet Take 1 tablet by mouth twice daily. atenolol (TENORMIN) 50 mg tablet Take 1 tablet by mouth once daily. furosemide (LASIX) 20 mg tablet Take 1 tablet by mouth once daily. potassium chloride (K-TAB) 10 mEq tablet Take 1 tablet by mouth daily with breakfast. traZODone (DESYREL) 100 mg tablet Take 1 tablet by mouth daily at bedtime. fluticasone (FLONASE) 50 mcg/actuation nasal spray Use 2 Sprays in each nostril once daily. Rinse mouth after use. Blood-Glucose Meter monitoring kit Insurance covered or per patient choice. Test blood sugar twice daily plus as needed for symptoms of blood sugars being too high or low. Dx: Type 2 DM - Uncontrolled Insulin:No Nebulizer NEBULIZER FOR HOME USE. DX: J45.42 peg 3350-Electrolytes (GOLYTELY) 236-22.74-6.74 -5.86 gram suspension Refer to printed prep instructions from your provider. aspirin, enteric coated (ASPIRIN, ENTERIC COATED) 81 mg EC tablet Take 81 mg by mouth once daily. diphenoxylate-atropine (LOMOTIL) 2.5-0.025 mg per tablet Take 1 tablet by mouth four times daily asneeded. lipase/protease/amylase (CREON ORAL) Take by mouth. Dr. Caceres, unsure of dose (Patient not taking:Reported on 04/06/2022 ) diclofenac (VOLTAREN ARTHRITIS PAIN) 1 % topical gel Apply 2-4 g to affected area four times daily as needed (feet pain). (Patient not taking: Reported on 04/06/2022 ) BIPAP Initiate BiPAP @ 20/14 cm of water with heated humidification. Ti Max 1.0, Ti Min 0.3, trigger medium, cycle high. Mask (medium AirFit F10 full face mask or per patient preference) optional chin strap (if indicated) , filters, tubing, humidifier and lifetime supplies. (Patient not taking: Reported on 04/06/2022 ) No current facility-administered medications for this visit. Review of Systems Objective BP 112/72 Pulse 73 Wt 90.7 kg (200 lb) SpO2 97% BMI 32.28 kg/m Physical Exam Constitutional: Appearance: Normal appearance. HENT: Head: Normocephalic. Eyes: Conjunctiva/sclera: Conjunctivae normal. Cardiovascular: Rate and Rhythm: Normal rate and regular rhythm. Heart sounds: Normal heart sounds. Pulmonary: Effort: Pulmonary effort is normal. Breath sounds: Wheezing present. Skin: General: Skin is warm and dry. Neurological: General: No focal deficit present. Mental Status: She is alert and oriented to person, place, and time. Psychiatric: Mood and Affect: Mood normal. Behavior: Behavior normal. Thought Content: Thought content normal. Judgment: Judgment normal. Abdominal diastasis noted. Component Latest Ref Rng & Units 03/30/2021 08/14/2021 03/28/2022 Protein, Total 6.3 - 8.0 g/dL 7.2 Albumin 3.9 - 4.9 g/dL 4.5 Calcium 8.5 - 10.2 mg/dL 9.0 Bilirubin, Total 0.2 - 1.3 mg/dL 0.2 Alkaline Phosphatase 34 - 123 U/L 74 AST 13 - 35 U/L 16 Glucose 74 - 99 mg/dL 95 BUN 7 - 21 mg/dL 14 Creatinine 0.58 - 0.96 mg/dL 0.53 (L) Sodium 136 - 144 mmol/L 142 Potassium 3.7 - 5.1 mmol/L 3.7 Chloride 97 - 105 mmol/L 103 CO2 22 - 30 mmol/L 24 Anion Gap 9 - 18 mmol/L 15 ALT 7 - 38 U/L 9 eGFR- >60 eGFR-All Other Races . >60 WBC 3.70 - 11.00 k/uL 10.26 RBC 3.90 - 5.20 m/uL 5.11 Hemoglobin 11.5 - 15.5 g/dL 14.7 Hematocrit 36.0 - 46.0 % 43.8 MCV 80.0 - 100.0 fL 85.7 MCH 26.0 - 34.0 pG 28.8 MCHC 30.5 - 36.0 g/dL 33.6 RDW-CV 11.5 - 15.0 % 13.2 Platelet Count 150 - 400 k/uL 348 MPV 9.0 - 12.7 fL 9.8 Absolute nRBC <0.01 k/uL <0.01 Cholesterol, Total <200 mg/dL 149 Triglyceride <150 mg/dL 254 (H) HDL Cholesterol >39 mg/dL 30 (L) LDL Cholesterol <100 mg/dL 68 Non HDL Cholesterol <130 mg/dL 119 Fasting Time hrs 12 VLDL Cholesterol <30 mg/dL 51 (H) TC:HDL Ratio <5.10 4.97 LDL:HDL Ratio <2.54 2.27 Hemoglobin A1C 4.3 - 5.6 % 6.4 (H) 6.4 (H) 7.5 (H) Estimated Average Glucose mg/dL 137 137 169 Assessment and Plan ASSESSMENT/PLAN: 1. Chronic midline low back pain, unspecified whether sciatica present - ICD9: 724.2, 338.29, ICD10: M54.50, G89.29 (primary diagnosis) - CONSULT TO PHYSICAL THERAPY 2. Type 2 diabetes mellitus with diabetic neuropathy, without long-term current use of insulin (HCC) - ICD9: 250.60, 357.2, ICD10: E11.40 Controlled. - Continue current medications - Needs to keep working on diet and exercise with lifestyle changes for effective weight loss as well as control of DM, and control of BP and lipids. 3. Class 1 obesity due to excess calories without serious comorbidity with body mass index (BMI) of32.0 to 32.9 in adult - ICD9: 278.00, V85.32, ICD10: E66.09, Z68.32 Needs to keep working on diet and exercise with lifestyle changes for effective weight loss as wellas control of DM, and control of BP and lipids. 4. Allergic rhinitis, unspecified seasonality, unspecified trigger - ICD9: 477.9, ICD10: J30.9 - CETIRIZINE 10 MG TABLET 5. Anxiety and depression - ICD9: 300.00, 311, ICD10: F41.9, F32.A Continue present management. - SERTRALINE 100 MG TABLET - BUSPIRONE 15 MG TABLET - TRAZODONE 100 MG TABLET - ALPRAZOLAM 0.5 MG TABLET 6. Spinal stenosis of lumbar region, unspecified whether neurogenic claudication present - ICD9: 724.02, ICD10: M48.061 - CONSULT TO PHYSICAL THERAPY 7. S/P lumbar laminectomy - ICD9: V45.89, ICD10: Z98.890 - CONSULT TO PHYSICAL THERAPY 8. Essential hypertension - ICD9: 401.9, ICD10: I10 - good control - Continue current medication(s) - Recommended regular aerobic exercise. - Recommend home blood pressure monitoring, to bring results in on next visit - Goal of BP <130/80 9. Neuropathy - ICD9: 355.9, ICD10: G62.9 Continue present management. 10. Gait instability - ICD9: 781.2, ICD10: R26.81 - CONSULT TO PHYSICAL THERAPY Willam Estrada MD documented in this encounterUniversity Hospitals [facility]07-05-2022 History of Present illness Narrative* Jennifer Castle, RT(R) - 03/13/2022 12:10 PM EDT Radiology Service Progress Note PATIENT NAME: Garland De Santiago DATE OF SERVICE: March 13, 2022 TIME: 12:21 PM PATIENT IDENTITY VERIFICATION COMPLETED USING TWO (2) IDENTIFIERS: Name and Date of confirmedby patient verbally. FALL SCREENING: Has the patient had 2 falls in the last year or 1 fall with injury or currently using an Ambulatory Assistive Device (Walker, Cane, Wheelchair, Crutches, etc.)? No PATIENT GENDER DATA: Female. status: : No status: NO. PATIENT RELEVANT IMPLANT DATA REVIEWED: Yes RADIOLOGY DEPARTMENT: General X-ray: Exam(s) Completed: Chest X-Ray PERIPHERAL IV DATA: Not applicable SIGNED BY: RT Andrea(R) March 13, 2022 12:21 PM documented in this encounterUniversity Hospitals Beachwood [facility] Center07-01-2022 History of Present illness Narrative* Lori Matamoros PA-C - 03/09/2022 3:25 PM EDT In lieu of an in-person visit due to COVID-19 concerns, a virtual visit was performed on the patient. Patient is aware that I am not fully able to assess symptoms and do a full physical examination including vital signs assessment at this time. Patient consents to this encounter. FOLLOW UP VISIT - ENDOSCOPY NAME: Garland Kohli Anyi [facility] NO.: [id number] DATE OF SERVICE: 03/09/2022 : 1960 REFERRING PHYSICIAN: Willam Estrada MD Garland is a patient I am following with Dr. Manrique for rectal bleeding and abdominal bloating. performed upper and lower endoscopy on 02/22/22. The patient was found to have a small hiatal hernia, colon polyp and hemorrhoids. Pathology demonstrated: FINAL DIAGNOSIS A. Gastric antrum, biopsies: Benign gastric mucosa, negative for inflammatory infiltrates. B. Esophagogastric junction, biopsies: Mild active inflammation involving esophageal squamous epithelium and gastric- type glandular mucosa. Negative for Molina's esophagus. C. Transverse colon, biopsy: Tubular adenoma. The patient notes no complaints since the procedure. On limited video-enabled visual exam: General: patient is alert, cooperative, pleasant and in no acute distress Assessment IMPRESSION: small hiatal hernia, GERD, hemorrhoids, transverse colon polyp PLAN: The operative findings and pathology report were reviewed with the patient, and the patient has hadthe opportunity to ask questions and have questions answered. Reviewed dietary and lifestyle modifications for GERD. Recommend fiber and increased fluids to help prevent hemorrhoids from flaring. If the patient notes any problems or changes in bowel function, the patient should contact me immediately. Otherwise I recommend follow up endoscopy in 5 year for surveillance due to polyp. HM updated and recall letter generated. Patient verbalized understanding of all above and agreed with the plan Diagnoses: (K64.9) Hemorrhoids, unspecified hemorrhoid type (primary encounter diagnosis) (K44.9) Hiatal hernia (K21.9) Gastroesophageal reflux disease, unspecified whether esophagitis present (D36.9) Tubular adenoma I spent a total of 22 minutes on the date of the service which included preparing to see the patient, [id number] patient care, completing clinical documentation, obtaining and/or reviewing separately obtained history, counseling and educating the patient/family/caregiver, independently interpretin g results (not separately reported) and communicating results to the patient/family/caregiver. Lori Matamoros PA-C documented in this encounterUniversity Hospitals Beachwood [facility] Center06-27-2022 Miscellaneous Notes* Telephone Encounter - Itzel Foster MA - 03/05/2022 1:14 PM EDT Patient scheduled for F/U with AGraff 03/09/22. Itzel Foster MA * Telephone Encounter - Leila Hale - 02/28/2022 9:29 AM EDT Called patient to R/S on 03/19 for . No answer. Left message on voicemail to R/S. .Leila Hale * Telephone Encounter - Tesha Posey - 02/09/2022 3:10 PM EDT 02-22-2022 COLON EGD LODI documented in this encounterUniversity Hospitals Beachwood [facility] Center06-17-2022 Miscellaneous Notes* Telephone Encounter - Willam Estrada MD - 02/23/2022 6:43 PM EDT Okayed * Telephone Encounter - Cresencio Sharp Ma - 02/23/2022 2:23 PM EDT REGULO: 01/09/2022 Last refill: 03/15/2021 QTY: 30 Refills: 11 Patient's request for medication is as follows: Pending Prescriptions Disp Refills LISINOPRIL 20 MG TABLET 30 tablet 11 Sig: Take 1 tablet by mouth once daily. LUCY: No Please approve the above prescription(s) to electronically send to pharmacy. Cresencio Sharp Ma documented in this encounterUniversity Hospitals Beachwood [facility] Center06-16-2022 History and physical note * Patti Manrique MD - 02/22/2022 12:30 PM EDT UPDATED HISTORY AND PHYSICAL EXAMINATION SERVICE DATE: 02/22/2022 SERVICE TIME: 11:33 PHYSICAL EXAM MUST BE COMPLETED ON ADMISSION The History and Physical (completed in the past 30 days) has been reviewed and the patient has beenexamined. The contents accurately reflect the patient's condition with the following additions or revisions since the H&P was completed. Examination indicates no changes. This H&P can be found in Electronic medical records. SIGNATURE: Patti Manrique MD PATIENT NAME: Garland De Santiago DATE: February 22, 2022 TIME: 11:33 AM * Patti Manrique MD - 02/22/2022 12:30 PM EDT HISTORY AND PHYSICAL Garland De Santiago 1960 REFERRING PHYSICIAN: Self CHIEF COMPLAINT: Consult (abdomen mass, bloating) HPI: The patient is a 61 year old female presents with an abdominal mass. She also notes rectal bleeding She complains of epigastric abdominal pain. She denies heartburn or acid reflux. She had a colonoscopy about 10 y ago Complaint of abdominal pain and bloating for several months She states that she is bloated presently and points to her abdomen all over. She was evaluated at the gastroenterology office at [place]. The following workup was done (information obtained from [facility]) 12/22/2021 - CT scan - liver steatosis 12/26/2022 - gastric emptying study - normal gastric emptying time with liquids and solids 01/09/2022 - abdominal ultrasound - fatty liver 01/09/2022- liver fibroscan - liver stiffness measure 7kPa - F2-F3 (mild to moderate liver fibrosis) PAST MEDICAL HISTORY Diagnosis Date Allergic rhinitis, cause unspecified 02/10/2007 Anxiety Arthritis Asthma 02/10/2007 Centrilobular emphysema (HCC) Depression Psychiatrist managing (Dr. Bedolla) DM type 2 (diabetes mellitus, type 2) (HCC) Essential hypertension 05/23/2006 Hemorrhage of gastrointestinal tract, unspecified 12/13/2011 Had bleeding hemorrhoids in 2011; normal colonoscopy Internal hemorrhoids without mention of complication 12/13/2011 Mixed hyperlipidemia 05/23/2006 Obesity (BMI 30.0-34.9) YARY (obstructive sleep apnea) Uses BiPAP occasionally Other nonspecific abnormal finding 05/23/2006 CK Elevation Snoring PAST SURGICAL HISTORY Procedure Laterality Date ADENOIDECTOMY PRIMARY <AGE 12 Adenoidectomy ANTERIOR COLPORRAPHY RPR CYSTOCELE W/CYSTO Cystocele repair APPENDECTOMY APPENDECTOMY HX ARTHRP KNE CONDYLE&PLATU MEDIAL&LAT COMPARTMENTS 07/10/2015 right BACK SURGERY HX COLONOSCOPY FLX DX W/COLLJ SPEC WHEN PFRMD 12/13/2011 Colonoscopy repeat 10 years ESOPHAGOGASTRODUODENOSCOPY TRANSORAL DIAGNOSTIC 02/09/2016 EGD INCISE FINGER TENDON SHEATH Right 08/10/2021 Right ring trigger finger release JOINT REPLACEMENT HX LAPS ABD PRTM&OMENTUM DX W/WO SPEC BR/WA SPX Laparoscopy LAPS SURG CHOLECYSTECTOMY W/CHOLANGIOGRAPHY 10/07/2006 LIG/TRNSXJ FLP TUBE ABDL/VAG APPR UNI/BI Tubal ligation PAST SURGICAL HISTORY OF 06/22/2010 right knee arthroscopy- by Dr Dawson ([facility]) PAST SURGICAL HISTORY OF 2019 low back surgery at [facility] TONSILLECTOMY PRIMARY/SECONDARY <AGE 12 Tonsillectomy VAGINAL HYSTERECTOMY UTERUS 250 GM/< Hysterectomy, vaginal for menorrhagia Current Outpatient Medications Medication Sig ursodiol (ACTIGALL) 300 mg capsule Take 1 capsule by mouth twice daily. fluticasone-vilanterol (BREO ELLIPTA) 200-25 mcg/dose inhaler Inhale 1 Inhalation as instructed once daily. aspirin, enteric coated (ASPIRIN, ENTERIC COATED) 81 mg EC tablet Take 81 mg by mouth once daily. diphenoxylate-atropine (LOMOTIL) 2.5-0.025 mg per tablet Take 1 tablet by mouth four times daily asneeded. lipase/protease/amylase (CREON ORAL) Take by mouth. Dr. Caceres, unsure of dose gabapentin (NEURONTIN) 300 mg capsule Take 2 capsules by mouth every morning AND 3 capsules every evening. Do all this for 180 days. Do not start before December 09, 2021. ALPRAZolam (XANAX) 0.5 mg tablet Take 1 tablet by mouth at bedtime as needed for up to 120 days. Donot start before December 09, 2021. ibuprofen (MOTRIN) 600 mg tablet Take 1 tablet by mouth every 12 hours. diclofenac (VOLTAREN ARTHRITIS PAIN) 1 % topical gel Apply 2-4 g to affected area four times daily as needed (feet pain). albuterol HFA (VENTOLIN HFA) 90 mcg/actuation inhaler Inhale 2 Puffs as instructed every 4 hours asneeded. Lancets lancets Test blood sugar(s) 2 times daily. Dx: Type 2 DM - Uncontrolled E11.65 Insulin: No blood sugar diagnostic (TRUE METRIX GLUCOSE TEST STRIP) test strip Test blood sugars twice a day DX: E11.65 Insulin: No Use as instructed metFORMIN ER (GLUCOPHAGE XR) 500 mg 24 hr tablet Take 1 tablet by mouth twice daily before meals. ipratropium (ATROVENT) 0.02 % nebulizer solution Use 2.5 mL via nebulizer four times daily. Unit dose pack of 50 albuterol (PROVENTIL) 2.5 mg /3 mL (0.083 %) nebulizer solution Use 3 mL via nebulizer every 4 hours as needed for wheezing/shortness of breath. ketoconazole (NIZORAL) 2 % cream Apply 1 application to affected area once daily. cetirizine (ZYRTEC) 10 mg tablet Take 1 tablet by mouth once daily. sertraline (ZOLOFT) 100 mg tablet Take 2 tablets by mouth once daily. busPIRone (BUSPAR) 15 mg tablet Take 0.5 tablets by mouth twice daily. gemfibrozil (LOPID) 600 mg tablet Take 1 tablet by mouth twice daily. atenolol (TENORMIN) 50 mg tablet Take 1 tablet by mouth once daily. furosemide (LASIX) 20 mg tablet Take 1 tablet by mouth once daily. potassium chloride (K-TAB) 10 mEq tablet Take 1 tablet by mouth daily with breakfast. traZODone (DESYREL) 100 mg tablet Take 1 tablet by mouth daily at bedtime. lisinopril (ZESTRIL, PRINIVIL) 20 mg tablet Take 1 tablet by mouth once daily. fluticasone (FLONASE) 50 mcg/actuation nasal spray Use 2 Sprays in each nostril once daily. Rinse mouth after use. Blood-Glucose Meter monitoring kit Insurance covered or per patient choice. Test blood sugar twice daily plus as needed for symptoms of blood sugars being too high or low. Dx: Type 2 DM - Uncontrolled E11.65 Insulin:No Nebulizer NEBULIZER FOR HOME USE. DX: J45.42 peg 3350-Electrolytes (GOLYTELY) 236-22.74-6.74 -5.86 gram suspension Refer to printed prep instructions from your provider. BIPAP Initiate BiPAP @ 20/14 cm of water with heated humidification. Ti Max 1.0, Ti Min 0.3, trigger medium, cycle high. Mask (medium AirFit F10 full face mask or per patient preference) optional chin strap (if indicated) , filters, tubing, humidifier and lifetime supplies. ALLERGIES: Dilaudid [Hydromorphone (Bulk)], Dust Mites, Paxil [Paroxetine], Penicillins, Prozac [Fluoxetine Hcl], Pseudoephedrine, and Vicodin [Hydrocodone-Acetaminophen] PERSONAL HISTORY: Social History Tobacco Use Smoking status: Current Every Day Smoker Packs/day: 1.00 Years: 36.00 Pack years: 36.00 Types: Cigarettes Smokeless tobacco: Never Used Vaping Use Vaping Use: Never used Substance Use Topics Alcohol use: No Drug use: No FAMILY HISTORY Problem Relation Age of Onset Hypertension Mother history of glaucoma Cervical Cancer Mother Asthma Mother Heart Father CO x 2 Cancer Father Lung, metastatic to bone, age 77 other (aortic aneurysm) Father 50 Colon Polyps Sister Thyroid Sister Hypothyroidism Thyroid Sister Cancer Sister Lung, LLL. Resected. No Known Problems Daughter No Known Problems Son The review of systems data was entered by the nurse and reviewed by ga Nursing Notes: Tex Harris LPN 02/09/2022 2:27 PM Signed REVIEW OF SYSTEMS: General: The patient notes fatigue, denies weight loss, denies weight gain, denies feeling hot, anddenies feelings of cold. Eyes: The patient denies glaucoma, denies eye injury/surgery, wears glasses or contacts. Ear/Nose/Throat: The patient notes allergies, denies hayfever, denies ear infections, and denies bloody noses. Cardiovascular: The patient denies chest pain, denies heart disease, notes high blood pressure,denies cardiac stent, denies prior heart attack, denies irregular heart beat, notes high cholesterol, denies poor circulation, denies heart failure, other cardiac issues, denies claudication, denies cold feet, denies peripheral arterial stent. Respiratory: The patient denies tuberculosis, denies pneumonia, denies frequent cough, denies pulmonary embolism, notes shortness of breath, and denies coughing up blood. Gastrointestinal: The patient denies difficulty swallowing, denies acid reflux, denies ulcers, denies vomiting, denies jaundice/hepatitis, notes gallbladder problems, denies black or tarry stools, denies hemorrhoids, notes bleeding from rectum, denies diverticulitis, notes constipation, notes diarrhea, denies loss of stool control, and denies hernias. Kidney/Bladder: The patient denies kidney stones, notes urine infections, and notes bloody urine. Skin: The patient denies a history of skin cancer, denies bleeding/changing moles, and denies a history of skin rash. Neurologic: The patient denies a history of epilepsy/convulsions, denies headaches, denies head/spinal injuries, and denies stroke/TIA. Psychiatric: The patient denies psychiatric medications, notes depression, and denies voices, denies substance abuse. Endocrine: The patient denies thyroid disorders, notes diabetes, and denies hormonal problems. Hematologic: The patient denies a history of bruising, denies bleeding, and denies anemia, denies blood clots. Infections: The patient denies a history of measles and mumps, denies rheumatic fever, and denies sexually transmitted diseases. Musculoskeletal: The patient notes back pain/injury, denies back problems, denies sciatica, denies knee/foot trouble, denies arthritis, or denies gout. When was patient's last Mammogram screening? 2021 Last Colonoscopy: 2011 Tex Harris LPN PHYSICAL EXAMINATION: General: The patient is 61 year old female, well nourished, well hydrated in no acute distress. Thepatient is oriented to time, place, and person. VITALS: Blood pressure 108/66, pulse 86, temperature (!) 35.6 C (96.1 F), height 167.6 cm (5' 6), weight 90.7 kg (200 lb), SpO2 96 %. Body mass index is 32.28 kg/m . Head: Normal cephalic, atraumatic Eyes: pupils are equally round, sclera are clear/anicteric Neck is supple with no tracheal deviation Respiratory: Normal respiratory excursion and pattern. Abdominal exam: patient points to mass - she is pointing to her protruding rectus diastasis, obese and benign, no tympany noted Extremities: no clubbing, cyanosis or edema. Neuro: non focal Psych: normal mood IMPRESSION: rectal bleeding, epigastric abdominal pain, abdominal bloating, rectus diastasis PLAN: I have discussed the above with the patient. I have explained fatty liver disease to patient and possible progression to liver cirrhosis. I have offered evaluation with EGD and colonoscopy, possible biopsies I have explained the procedure to the patient. I have counseled the patient as to the risks of the procedure, including but not limited to: infection, bleeding, perforation of the GI tract, injury to any intraabdominal organs such as the liver/spleen, inability to complete the procedure, complications of anesthesia, etc. the patient understands. I have explained to the patient the difference between IV conscious sedation and MAC anesthesia - and I have offered either, according to the patient's wishes. I have explained that with IV conscioussedation there is no anesthesia provider available and therefore there is a limitation of the amount of IV medications that can be given and that the patient may wake up in the middle of the procedure and/or experience pain/discomfort during the procedure. Further discussion was done and the patient was given the opportunity to ask questions and all questions were answered. The patient chooses MAC anesthesia. She takes xanax, buspar, and trazodone on a regular daily basis. Patient was counseled that if there are changes in his/her medical condition, to let the office know if surgery should proceed. If there are changes in patient's medical condition from time of this encounter to the day of the procedure that preclude anesthesia, patient may have procedure cancelled for patient's safety. The patient wishes to proceed. I have answered all questions to the patient s satisfaction and the patient has no further questions. . . Diagnoses: (K62.5) Rectal bleeding (primary encounter diagnosis) (R10.13) Epigastric abdominal pain (R14.0) Abdominal bloating (M62.08) Rectus diastasis documented in this encounterUniversity [facility]-16-[facility]22 Miscellaneous Notes* Brief Op Note - Patti Manrique MD - 02/22/2022 12:30 PM EDT BRIEF OPERATIVE NOTE SURGERY DATE: 02/22/2022 Incision/Procedure Start Time: 12:42 Incision Close/Procedure End Time: 13:15 (cecal intubation time 13:00) Surgeon(s)/Proceduralist(s) and Sales Agent Financial Report Service(s): [facility] Procedures: EGD with biopsies Colonoscopy with cold snare polypectomy Anesthesia: MAC Findings: transverse colon < 1cm polyp, irregular GE junction, mild gastritis Estimated Blood Loss: minimal Specimens: mucosal biopsies of GE junction, mucosal biopsies of antrum, transverse colon polyp Complications: None Preop Diagnosis: screening for colon cancer, epigastric abdominal pain Postop Diagnosis: same SIGNATURE: Patti Manrique MD PATIENT NAME: Garland Orellanaz DATE: February 22, 2022 TIME: 1:17 PM documented in this encounterUniversity Hospitals [facility]06-04-2022 History of Present illness Narrative* Patti Manrique MD - 02/10/2022 2:36 PM EDT HISTORY AND PHYSICAL Garland De Santiago 1960 REFERRING PHYSICIAN: Self CHIEF COMPLAINT: Consult (abdomen mass, bloating) HPI: The patient is a 61 year old female presents with an abdominal mass. She also notes rectal bleeding She complains of epigastric abdominal pain. She denies heartburn or acid reflux. She had a colonoscopy about 10 y ago Complaint of abdominal pain and bloating for several months She states that she is bloated presently and points to her abdomen all over. She was evaluated at the gastroenterology office at [place]. The following workup was done (information obtained from [facility]) 12/22/2021 - CT scan - liver steatosis 12/26/2022 - gastric emptying study - normal gastric emptying time with liquids and solids 01/09/2022 - abdominal ultrasound - fatty liver 01/09/2022- liver fibroscan - liver stiffness measure 7kPa - F2-F3 (mild to moderate liver fibrosis) PAST MEDICAL HISTORY Diagnosis Date Allergic rhinitis, cause unspecified 02/10/2007 Anxiety Arthritis Asthma 02/10/2007 Centrilobular emphysema (HCC) Depression Psychiatrist managing (Dr. Bedolla) DM type 2 (diabetes mellitus, type 2) (HCC) Essential hypertension 05/23/2006 Hemorrhage of gastrointestinal tract, unspecified 12/13/2011 Had bleeding hemorrhoids in 2011; normal colonoscopy Internal hemorrhoids without mention of complication 12/13/2011 Mixed hyperlipidemia 05/23/2006 Obesity (BMI 30.0-34.9) YARY (obstructive sleep apnea) Uses BiPAP occasionally Other nonspecific abnormal finding 05/23/2006 CK Elevation Snoring PAST SURGICAL HISTORY Procedure Laterality Date ADENOIDECTOMY PRIMARY <AGE 12 Adenoidectomy ANTERIOR COLPORRAPHY RPR CYSTOCELE W/CYSTO Cystocele repair APPENDECTOMY APPENDECTOMY HX ARTHRP KNE CONDYLE&PLATU MEDIAL&LAT COMPARTMENTS 07/10/2015 right BACK SURGERY HX COLONOSCOPY FLX DX W/COLLJ SPEC WHEN PFRMD 12/13/2011 Colonoscopy repeat 10 years ESOPHAGOGASTRODUODENOSCOPY TRANSORAL DIAGNOSTIC 02/09/2016 EGD INCISE FINGER TENDON SHEATH Right 08/10/2021 Right ring trigger finger release JOINT REPLACEMENT HX LAPS ABD PRTM&OMENTUM DX W/WO SPEC BR/WA SPX Laparoscopy LAPS SURG CHOLECYSTECTOMY W/CHOLANGIOGRAPHY 10/07/2006 LIG/TRNSXJ FLP TUBE ABDL/VAG APPR UNI/BI Tubal ligation PAST SURGICAL HISTORY OF 06/22/2010 right knee arthroscopy- by Dr Dawson ([facility]) PAST SURGICAL HISTORY OF 2019 low back surgery at [facility] TONSILLECTOMY PRIMARY/SECONDARY <AGE 12 Tonsillectomy VAGINAL HYSTERECTOMY UTERUS 250 GM/< Hysterectomy, vaginal for menorrhagia Current Outpatient Medications Medication Sig ursodiol (ACTIGALL) 300 mg capsule Take 1 capsule by mouth twice daily. fluticasone-vilanterol (BREO ELLIPTA) 200-25 mcg/dose inhaler Inhale 1 Inhalation as instructed once daily. aspirin, enteric coated (ASPIRIN, ENTERIC COATED) 81 mg EC tablet Take 81 mg by mouth once daily. diphenoxylate-atropine (LOMOTIL) 2.5-0.025 mg per tablet Take 1 tablet by mouth four times daily asneeded. lipase/protease/amylase (CREON ORAL) Take by mouth. Dr. Caceres, unsure of dose gabapentin (NEURONTIN) 300 mg capsule Take 2 capsules by mouth every morning AND 3 capsules every evening. Do all this for 180 days. Do not start before December 09, 2021. ALPRAZolam (XANAX) 0.5 mg tablet Take 1 tablet by mouth at bedtime as needed for up to 120 days. Donot start before December 09, 2021. ibuprofen (MOTRIN) 600 mg tablet Take 1 tablet by mouth every 12 hours. diclofenac (VOLTAREN ARTHRITIS PAIN) 1 % topical gel Apply 2-4 g to affected area four times daily as needed (feet pain). albuterol HFA (VENTOLIN HFA) 90 mcg/actuation inhaler Inhale 2 Puffs as instructed every 4 hours asneeded. Lancets lancets Test blood sugar(s) 2 times daily. Dx: Type 2 DM - Uncontrolled E11.65 Insulin: No blood sugar diagnostic (TRUE METRIX GLUCOSE TEST STRIP) test strip Test blood sugars twice a day DX: E11.65 Insulin: No Use as instructed metFORMIN ER (GLUCOPHAGE XR) 500 mg 24 hr tablet Take 1 tablet by mouth twice daily before meals. ipratropium (ATROVENT) 0.02 % nebulizer solution Use 2.5 mL via nebulizer four times daily. Unit dose pack of 50 albuterol (PROVENTIL) 2.5 mg /3 mL (0.083 %) nebulizer solution Use 3 mL via nebulizer every 4 hours as needed for wheezing/shortness of breath. ketoconazole (NIZORAL) 2 % cream Apply 1 application to affected area once daily. cetirizine (ZYRTEC) 10 mg tablet Take 1 tablet by mouth once daily. sertraline (ZOLOFT) 100 mg tablet Take 2 tablets by mouth once daily. busPIRone (BUSPAR) 15 mg tablet Take 0.5 tablets by mouth twice daily. gemfibrozil (LOPID) 600 mg tablet Take 1 tablet by mouth twice daily. atenolol (TENORMIN) 50 mg tablet Take 1 tablet by mouth once daily. furosemide (LASIX) 20 mg tablet Take 1 tablet by mouth once daily. potassium chloride (K-TAB) 10 mEq tablet Take 1 tablet by mouth daily with breakfast. traZODone (DESYREL) 100 mg tablet Take 1 tablet by mouth daily at bedtime. lisinopril (ZESTRIL, PRINIVIL) 20 mg tablet Take 1 tablet by mouth once daily. fluticasone (FLONASE) 50 mcg/actuation nasal spray Use 2 Sprays in each nostril once daily. Rinse mouth after use. Blood-Glucose Meter monitoring kit Insurance covered or per patient choice. Test blood sugar twice daily plus as needed for symptoms of blood sugars being too high or low. Dx: Type 2 DM - Uncontrolled E11.65 Insulin:No Nebulizer NEBULIZER FOR HOME USE. DX: J45.42 peg 3350-Electrolytes (GOLYTELY) 236-22.74-6.74 -5.86 gram suspension Refer to printed prep instructions from your provider. BIPAP Initiate BiPAP @ 20/14 cm of water with heated humidification. Ti Max 1.0, Ti Min 0.3, trigger medium, cycle high. Mask (medium AirFit F10 full face mask or per patient preference) optional chin strap (if indicated) , filters, tubing, humidifier and lifetime supplies. ALLERGIES: Dilaudid [Hydromorphone (Bulk)], Dust Mites, Paxil [Paroxetine], Penicillins, Prozac [Fluoxetine Hcl], Pseudoephedrine, and Vicodin [Hydrocodone-Acetaminophen] PERSONAL HISTORY: Social History Tobacco Use Smoking status: Current Every Day Smoker Packs/day: 1.00 Years: 36.00 Pack years: 36.00 Types: Cigarettes Smokeless tobacco: Never Used Vaping Use Vaping Use: Never used Substance Use Topics Alcohol use: No Drug use: No FAMILY HISTORY Problem Relation Age of Onset Hypertension Mother history of glaucoma Cervical Cancer Mother Asthma Mother Heart Father CO x 2 Cancer Father Lung, metastatic to bone, age 77 other (aortic aneurysm) Father 50 Colon Polyps Sister Thyroid Sister Hypothyroidism Thyroid Sister Cancer Sister Lung, LLL. Resected. No Known Problems Daughter No Known Problems Son The review of systems data was entered by the nurse and reviewed by me Nursing Notes: Tex Harris LPN 02/09/2022 2:27 PM Signed REVIEW OF SYSTEMS: General: The patient notes fatigue, denies weight loss, denies weight gain, denies feeling hot, anddenies feelings of cold. Eyes: The patient denies glaucoma, denies eye injury/surgery, wears glasses or contacts. Ear/Nose/Throat: The patient notes allergies, denies hayfever, denies ear infections, and denies bloody noses. Cardiovascular: The patient denies chest pain, denies heart disease, notes high blood pressure,denies cardiac stent, denies prior heart attack, denies irregular heart beat, notes high cholesterol, denies poor circulation, denies heart failure, other cardiac issues, denies claudication, denies cold feet, denies peripheral arterial stent. Respiratory: The patient denies tuberculosis, denies pneumonia, denies frequent cough, denies pulmonary embolism, notes shortness of breath, and denies coughing up blood. Gastrointestinal: The patient denies difficulty swallowing, denies acid reflux, denies ulcers, denies vomiting, denies jaundice/hepatitis, notes gallbladder problems, denies black or tarry stools, denies hemorrhoids, notes bleeding from rectum, denies diverticulitis, notes constipation, notes diarrhea, denies loss of stool control, and denies hernias. Kidney/Bladder: The patient denies kidney stones, notes urine infections, and notes bloody urine. Skin: The patient denies a history of skin cancer, denies bleeding/changing moles, and denies a history of skin rash. Neurologic: The patient denies a history of epilepsy/convulsions, denies headaches, denies head/spinal injuries, and denies stroke/TIA. Psychiatric: The patient denies psychiatric medications, notes depression, and denies voices, denies substance abuse. Endocrine: The patient denies thyroid disorders, notes diabetes, and denies hormonal problems. Hematologic: The patient denies a history of bruising, denies bleeding, and denies anemia, denies blood clots. Infections: The patient denies a history of measles and mumps, denies rheumatic fever, and denies sexually transmitted diseases. Musculoskeletal: The patient notes back pain/injury, denies back problems, denies sciatica, denies knee/foot trouble, denies arthritis, or denies gout. When was patient's last Mammogram screening? 2021 Last Colonoscopy: 2011 Tex Harris LPN PHYSICAL EXAMINATION: General: The patient is 61 year old female, well nourished, well hydrated in no acute distress. Thepatient is oriented to time, place, and person. VITALS: Blood pressure 108/66, pulse 86, temperature (!) 35.6 C (96.1 F), height 167.6 cm (5' 6), weight 90.7 kg (200 lb), SpO2 96 %. Body mass index is 32.28 kg/m . Head: Normal cephalic, atraumatic Eyes: pupils are equally round, sclera are clear/anicteric Neck is supple with no tracheal deviation Respiratory: Normal respiratory excursion and pattern. Abdominal exam: patient points to mass - she is pointing to her protruding rectus diastasis, obese and benign, no tympany noted Extremities: no clubbing, cyanosis or edema. Neuro: non focal Psych: normal mood Assessment IMPRESSION: rectal bleeding, epigastric abdominal pain, abdominal bloating, rectus diastasis PLAN: I have discussed the above with the patient. I have explained fatty liver disease to patient and possible progression to liver cirrhosis. I have offered evaluation with EGD and colonoscopy, possible biopsies I have explained the procedure to the patient. I have counseled the patient as to the risks of the procedure, including but not limited to: infection, bleeding, perforation of the GI tract, injury to any intraabdominal organs such as the liver/spleen, inability to complete the procedure, complications of anesthesia, etc. the patient understands. I have explained to the patient the difference between IV conscious sedation and MAC anesthesia - and I have offered either, according to the patient's wishes. I have explained that with IV conscioussedation there is no anesthesia provider available and therefore there is a limitation of the amount of IV medications that can be given and that the patient may wake up in the middle of the procedure and/or experience pain/discomfort during the procedure. Further discussion was done and the patient was given the opportunity to ask questions and all questions were answered. The patient chooses MAC anesthesia. She takes xanax, buspar, and trazodone on a regular daily basis. Patient was counseled that if there are changes in his/her medical condition, to let the office know if surgery should proceed. If there are changes in patient's medical condition from time of this encounter to the day of the procedure that preclude anesthesia, patient may have procedure cancelled for patient's safety. The patient wishes to proceed. I have answered all questions to the patient s satisfaction and the patient has no further questions. I have confirmed and edited as necessary, the PFSH and ROS obtained by others. . Diagnoses: (K62.5) Rectal bleeding (primary encounter diagnosis) (R10.13) Epigastric abdominal pain (R14.0) Abdominal bloating (M62.08) Rectus diastasis Return to Clinic: The patient is scheduled at [facility] on February 22 for upper and lower endoscopies. . Medical Decision Making: Problems: Low: Acute, uncomplicated illness or injury Data: Unique source(s) for external note(s) reviewed: 1 Risk: Low: Low risk from testing/treatment Medical Decision Making Level: 3 - Low Patti Manrique MD documented in this encounterUniversity [facility]als [facility]06-03-2022 Instructions* Patient Instructions* Patti Manrique MD - 02/09/2022 2:41 PM EDT Images from the original note were not included. Bowel Preparation Instructions for: Golytely, Nulytely, Trilyte or Colyte (polyethylene glycol 3350and electrolytes) IF YOU DO NOT FOLLOW THESE DIRECTIONS, YOUR COLONOSCOPY WILL BE CANCELLED. [place] Instructions: Your bowel must be empty so that your doctor can clearly view your colon. Follow all of the instructions in this handout EXACTLY as they are written. Do NOT eat any solid food the ENTIRE day before your colonoscopy. Drink only clear liquids. Buy your bowel preparation at least 5 days before your colonoscopy. TRANSPORTATION on the Day of Your Exam A responsible person MUST be present with you at [facility] prior to your colonoscopy and REMAIN in the endoscopy area until you are discharged. You are NOT ALLOWED to drive, take a taxi or bus, or leave the Endoscopy Center ALONE. If you do not have a responsible truck driver salesperson (family member or friend) with you to take you home, your exam cannot be done with sedation and will be cancelled. Please bring a list of all of your current medications, including any Over-the Counter medications with you. Medications If you take insulin, diabetic medications or blood thinners such as Coumadin (warfarin), Plavix (clopidogrel), Ticlid (ticlopidine hydrochloride), Agrylin (anagrelide), Xarelto (Rivaroxaban), Pradaxa(Dabigatran), Eliquis (Apixaban), and Effient (Prasugrel). You MUST call the doctors who orders those medicines for instructions on altering the dosage before your colonoscopy. All other medications should be taken the day of the exam with a sip of water including ASPIRIN. Five (5) Days Before Your Colonoscopy Do NOT take medicines that stop diarrhea - such as Imodium, Kaopectate, or Pepto Bismol. Do NOT take fiber supplements - such as Metamucil, Citrucel, or Perdiem. Do NOT take products that contain iron - such as multi-vitamins (the label lists what is in the products). Do NOT take Vitamin E. Buy the prescription bowel preparation solution at your local pharmacy or drugstore pharmacy. 08/2019 Bowel Preparation Instructions for: Golytely, Nulytely, Trilyte or Colyte (polyethylene glycol 3350and electrolytes) Three (3) Days Before Your Colonoscopy Do NOT eat high-fiber foods - such as popcorn, beans, seeds (flax, sunflower, quinoa), multigrain bread, nuts, salad/vegetables, or fresh and dried fruit. One (1) Day Before Your Colonoscopy Only drink clear liquids the ENTIRE DAY before your colonoscopy. Do NOT eat any solid foods. Drink at least 8 ounces of clear liquids every hour after waking up. The clear liquids you can drink include: Clear Liquid (NO RED LIQUIDS) DO NOT DRINK Gatorade, Pedialyte or Powerade Clear broth or bouillon Coffee or tea (no milk or non-dairy creamer) Carbonated and non-carbonated soft drinks Link-Aid or other fruit flavored drinks Strained fruit juices (no pulp) Jell-O, popsicles, hard candy Water Alcohol Milk or non-dairy creamers Noodles or vegetables in soup Juice with pulp Liquid you cannot see through The bowel preparation solution will be consumed in two parts. Mix the solution the evening before your colonoscopy and refrigerate before drinking. You may add the flavor pack that came with the bowel preparation. Do NOT add ice, sugar or any other flavorings to the solution. Part 1 At 6:00 PM - Evening before your colonoscopy Drink an 8-oz glass of bowel preparation every 10 minutes for a total of 8 glasses. You may continue to drink clear liquids until midnight. Part 2 On the day of your colonoscopy you may drink clear liquids up to (three) 3 hours before your procedure. 4 1/2 hours before your colonoscopy Drink an 8-oz glass of bowel preparation every 10 minutes for a total of 8 glasses. Fifteen (15) minutes later, drink an 8-oz glass of clear liquids every 15 minutes for a total of 2 glasses. You may continue to drink clear liquids up to (three) 3 hours before your exam. 3 08/2019 documented in this encounterUniversity Hospitals [facility] Center06-03-2022 Nurse Note* eTx Harris, CHRIS - 02/09/2022 2:25 PM EDT REVIEW OF SYSTEMS: General: The patient notes fatigue, denies weight loss, denies weight gain, denies feeling hot, anddenies feelings of cold. Eyes: The patient denies glaucoma, denies eye injury/surgery, wears glasses or contacts. Ear/Nose/Throat: The patient notes allergies, denies hayfever, denies ear infections, and denies bloody noses. Cardiovascular: The patient denies chest pain, denies heart disease, notes high blood pressure,denies cardiac stent, denies prior heart attack, denies irregular heart beat, notes high cholesterol, denies poor circulation, denies heart failure, other cardiac issues, denies claudication, denies cold feet, denies peripheral arterial stent. Respiratory: The patient denies tuberculosis, denies pneumonia, denies frequent cough, denies pulmonary embolism, notes shortness of breath, and denies coughing up blood. Gastrointestinal: The patient denies difficulty swallowing, denies acid reflux, denies ulcers, denies vomiting, denies jaundice/hepatitis, notes gallbladder problems, denies black or tarry stools, denies hemorrhoids, notes bleeding from rectum, denies diverticulitis, notes constipation, notes diarrhea, denies loss of stool control, and denies hernias. Kidney/Bladder: The patient denies kidney stones, notes urine infections, and notes bloody urine. Skin: The patient denies a history of skin cancer, denies bleeding/changing moles, and denies a history of skin rash. Neurologic: The patient denies a history of epilepsy/convulsions, denies headaches, denies head/spinal injuries, and denies stroke/TIA. Psychiatric: The patient denies psychiatric medications, notes depression, and denies voices, denies substance abuse. Endocrine: The patient denies thyroid disorders, notes diabetes, and denies hormonal problems. Hematologic: The patient denies a history of bruising, denies bleeding, and denies anemia, denies blood clots. Infections: The patient denies a history of measles and mumps, denies rheumatic fever, and denies sexually transmitted diseases. Musculoskeletal: The patient notes back pain/injury, denies back problems, denies sciatica, denies knee/foot trouble, denies arthritis, or denies gout. When was patient's last Mammogram screening? 2021 Last Colonoscopy: 2011 Tex Harris LPN documented in this encounterUniversity Hospitals [facility] Center05-31-2022 History of Present illness Narrative* Felipe Jolly APRN.PARTS DEPARTMENT MANAGER - 02/06/2022 2:31 PM EDT Subjective HPI Nontoxic-appearing female presents urgent care chief complaint diarrhea and bloating. Duration of symptoms ongoing. Associated symptoms listed above. Patient presents today for evaluation of abdominal knot. Patient states she noticed when she woke up this morning if she sits up she does have some distention and abdominal region. States this is painless. However she has not noticed this prior totoday. States she is currently under this care of [facility] GI specialist. States she is currently under the care of [place] for bloating/abdominal pain. Patient states she did have liver fibrosis. She has recently started taking supplements and changed her diet to help with this condition. Patient states feeling slightly more bloated today than normal. Denies any nausea vomiting or abdominal pain currently. No fevers or change in bowel or bladder habits. Past medical history prescription medication use allergies reviewed. .Patient presents with: Diarrhea: ongoing, now has bloating and knot in abdominal area x this am PAST MEDICAL HISTORY Diagnosis Date Allergic rhinitis, cause unspecified 02/10/2007 Anxiety Arthritis Asthma 02/10/2007 Centrilobular emphysema (HCC) Depression Psychiatrist managing (Dr. Bedolla) DM type 2 (diabetes mellitus, type 2) (HCC) Essential hypertension 05/23/2006 Hemorrhage of gastrointestinal tract, unspecified 12/13/2011 Had bleeding hemorrhoids in 2011; normal colonoscopy Internal hemorrhoids without mention of complication 12/13/2011 Mixed hyperlipidemia 05/23/2006 Obesity (BMI 30.0-34.9) YARY (obstructive sleep apnea) Uses BiPAP occasionally Other nonspecific abnormal finding 05/23/2006 CK Elevation Snoring PAST SURGICAL HISTORY Procedure Laterality Date ADENOIDECTOMY PRIMARY <AGE 12 Adenoidectomy ANTERIOR COLPORRAPHY RPR CYSTOCELE W/CYSTO Cystocele repair APPENDECTOMY APPENDECTOMY HX ARTHRP KNE CONDYLE&PLATU MEDIAL&LAT COMPARTMENTS 07/10/2015 right BACK SURGERY HX COLONOSCOPY FLX DX W/COLLJ SPEC WHEN PFRMD 12/13/2011 Colonoscopy repeat 10 years ESOPHAGOGASTRODUODENOSCOPY TRANSORAL DIAGNOSTIC 02/09/2016 EGD INCISE FINGER TENDON SHEATH Right 08/10/2021 Right ring trigger finger release JOINT REPLACEMENT HX LAPS ABD PRTM&OMENTUM DX W/WO SPEC BR/WA SPX Laparoscopy LAPS SURG CHOLECYSTECTOMY W/CHOLANGIOGRAPHY 10/07/2006 LIG/TRNSXJ FLP TUBE ABDL/VAG APPR UNI/BI Tubal ligation PAST SURGICAL HISTORY OF 06/22/2010 right knee arthroscopy- by Dr Dawson ([facility]) PAST SURGICAL HISTORY OF 2019 low back surgery at [facility] TONSILLECTOMY PRIMARY/SECONDARY <AGE 12 Tonsillectomy VAGINAL HYSTERECTOMY UTERUS 250 GM/< Hysterectomy, vaginal for menorrhagia ALLERGIES Dilaudid [Hydromorphone (Bulk)], Dust Mites, Paxil [Paroxetine], Penicillins, Prozac [Fluoxetine Hcl], Pseudoephedrine, and Vicodin [Hydrocodone-Acetaminophen] MEDICATIONS ursodiol (ACTIGALL) 300 mg capsule Take 1 capsule by mouth twice daily. fluticasone-vilanterol (BREO ELLIPTA) 200-25 mcg/dose inhaler Inhale 1 Inhalation as instructed once daily. aspirin, enteric coated (ASPIRIN, ENTERIC COATED) 81 mg EC tablet Take 81 mg by mouth once daily. diphenoxylate-atropine (LOMOTIL) 2.5-0.025 mg per tablet Take 1 tablet by mouth four times daily asneeded. lipase/protease/amylase (CREON ORAL) Take by mouth. Dr. Caceres, unsure of dose gabapentin (NEURONTIN) 300 mg capsule Take 2 capsules by mouth every morning AND 3 capsules every evening. Do all this for 180 days. Do not start before December 09, 2021. ALPRAZolam (XANAX) 0.5 mg tablet Take 1 tablet by mouth at bedtime as needed for up to 120 days. Donot start before December 09, 2021. ibuprofen (MOTRIN) 600 mg tablet Take 1 tablet by mouth every 12 hours. diclofenac (VOLTAREN ARTHRITIS PAIN) 1 % topical gel Apply 2-4 g to affected area four times daily as needed (feet pain). albuterol HFA (VENTOLIN HFA) 90 mcg/actuation inhaler Inhale 2 Puffs as instructed every 4 hours asneeded. Lancets lancets Test blood sugar(s) 2 times daily. Dx: Type 2 DM - Uncontrolled E11.65 Insulin: No blood sugar diagnostic (TRUE METRIX GLUCOSE TEST STRIP) test strip Test blood sugars twice a day DX: E11.65 Insulin: No Use as instructed metFORMIN ER (GLUCOPHAGE XR) 500 mg 24 hr tablet Take 1 tablet by mouth twice daily before meals. ipratropium (ATROVENT) 0.02 % nebulizer solution Use 2.5 mL via nebulizer four times daily. Unit dose pack of 50 albuterol (PROVENTIL) 2.5 mg /3 mL (0.083 %) nebulizer solution Use 3 mL via nebulizer every 4 hours as needed for wheezing/shortness of breath. ketoconazole (NIZORAL) 2 % cream Apply 1 application to affected area once daily. cetirizine (ZYRTEC) 10 mg tablet Take 1 tablet by mouth once daily. sertraline (ZOLOFT) 100 mg tablet Take 2 tablets by mouth once daily. busPIRone (BUSPAR) 15 mg tablet Take 0.5 tablets by mouth twice daily. gemfibrozil (LOPID) 600 mg tablet Take 1 tablet by mouth twice daily. atenolol (TENORMIN) 50 mg tablet Take 1 tablet by mouth once daily. furosemide (LASIX) 20 mg tablet Take 1 tablet by mouth once daily. potassium chloride (K-TAB) 10 mEq tablet Take 1 tablet by mouth daily with breakfast. traZODone (DESYREL) 100 mg tablet Take 1 tablet by mouth daily at bedtime. lisinopril (ZESTRIL, PRINIVIL) 20 mg tablet Take 1 tablet by mouth once daily. fluticasone (FLONASE) 50 mcg/actuation nasal spray Use 2 Sprays in each nostril once daily. Rinse mouth after use. Blood-Glucose Meter monitoring kit Insurance covered or per patient choice. Test blood sugar twice daily plus as needed for symptoms of blood sugars being too high or low. Dx: Type 2 DM - Uncontrolled E11.65 Insulin:No Nebulizer NEBULIZER FOR HOME USE. DX: J45.42 BIPAP Initiate BiPAP @ 20/14 cm of water with heated humidification. Ti Max 1.0, Ti Min 0.3, trigger medium, cycle high. Mask (medium AirFit F10 full face mask or per patient preference) optional chin strap (if indicated) , filters, tubing, humidifier and lifetime supplies. FAMILY HISTORY Problem Relation Age of Onset Hypertension Mother history of glaucoma Cervical Cancer Mother Asthma Mother Heart Father [place] x 2 Cancer Father Lung, metastatic to bone, age 77 other (aortic aneurysm) Father 50 Colon Polyps Sister Thyroid Sister Hypothyroidism Thyroid Sister Cancer Sister Lung, LLL. Resected. No Known Problems Daughter No Known Problems Son Social History Tobacco Use Smoking status: Current Every Day Smoker Packs/day: 1.00 Years: 36.00 Pack years: 36.00 Types: Cigarettes Smokeless tobacco: Never Used Vaping Use Vaping Use: Never used Substance Use Topics Alcohol use: No Drug use: No BP 124/70 Pulse 78 Temp 36.9 C (98.5 F) Resp 16 Wt 91.2 kg (201 lb) SpO2 97% BMI 32.44 kg/m Review of Systems Constitutional: Negative for chills, fever and malaise/fatigue. HENT: Negative for congestion, ear discharge, ear pain, sinus pain and sore throat. Eyes: Negative for blurred vision, pain, discharge and redness. Respiratory: Negative for cough, hemoptysis, sputum production, shortness of breath, wheezing and stridor. Cardiovascular: Negative for chest pain. Gastrointestinal: Positive for abdominal pain. Negative for blood in stool, constipation, diarrhea,melena, nausea and vomiting. Musculoskeletal: Negative for myalgias. Skin: Negative for itching and rash. Neurological: Negative for dizziness and headaches. Objective Physical Exam Constitutional: General: She is not in acute distress. Appearance: She is not diaphoretic. HENT: Head: Normocephalic. Mouth/Throat: Mouth: Mucous membranes are moist. Pharynx: Oropharynx is clear. No oropharyngeal exudate or posterior oropharyngeal erythema. Eyes: Conjunctiva/sclera: Conjunctivae normal. Pupils: Pupils are equal, round, and reactive to light. Cardiovascular: Rate and Rhythm: Normal rate and regular rhythm. Heart sounds: Normal heart sounds. Pulmonary: Effort: Pulmonary effort is normal. No tachypnea, accessory muscle usage or respiratory distress. Breath sounds: Normal breath sounds. No stridor. Abdominal: General: Bowel sounds are normal. Palpations: Abdomen is soft. Tenderness: There is no abdominal tenderness. There is no guarding or rebound. Hernia: A hernia is present. Musculoskeletal: Cervical back: Normal range of motion and neck supple. No rigidity or tenderness. Lymphadenopathy: Cervical: No cervical adenopathy. Skin: General: Skin is warm and dry. Neurological: Mental Status: She is alert and oriented to person, place, and time. ASSESSMENT/PLAN: 1. Abdominal bloating - ICD9: 787.3, ICD10: R14.0 (primary diagnosis) - CONSULT TO GENERAL SURGERY 2. Abdominal mass, unspecified abdominal location - ICD9: 789.30, ICD10: R19.00 - CONSULT TO GENERAL SURGERY Patient diagnosed with abdominal bloating and abdominal mass. This does appear to be abdominal hernia. No pain currently. No evidence of a acute abdomen. Patient will be referred to general surgery for further evaluation and care. Red flags for prompt reevaluation discussed. Patient was educated on supportive therapies. Patient will follow up with primary care provider as needed. Patient was instructed to immediately proceed to emergency room for any new, worsening, or symptoms lasting longer than anticipated. The patient's clinical presentation is otherwise unremarkable at this time. Based on exam and clinical finding, the patient is stable for discharge. Plan of care was discussed with patient. Patient verbalizes understanding and agrees to plan of care. This note was generated using [employer] software. It may contain errors in wording, punctuation, or spelling. Felipe Jolly APRN.HEIDY documented in this encounterUniversity Hospitals [facility] Center05-31-2022 Miscellaneous Notes* Telephone Encounter - Odilia Costello [facility] - 02/06/2022 10:17 AM EDT Pharmacy MyChart Adventure Guide Outreach Patient completed MyChart Adventure Guide questionnaire; notification routed to Pharmacy pool for follow-up. Garland reports Medication question(s) regarding: Medication Reconciliation Review Patient reports: She would like to know if ok to take medications together or if any need to be spaced out. Medication List Medication Directions Comments Action/Plan albuterol (PROVENTIL) 2.5 mg /3 mL (0.083 %) nebulizer solution Use 3 mL via nebulizer every 4 hours as needed for wheezing/shortness of breath. PRN albuterol HFA (VENTOLIN HFA) 90 mcg/actuation inhaler Inhale 2 Puffs as instructed every 4 hours asneeded. PRN ALPRAZolam (XANAX) 0.5 mg tablet Take 1 tablet by mouth at bedtime as needed for up to 120 days. Donot start before December 09, 2021. PRN aspirin, enteric coated (ASPIRIN, ENTERIC COATED) 81 mg EC tablet Take 81 mg by mouth once daily. Taking as directed atenolol (TENORMIN) 50 mg tablet Take 1 tablet by mouth once daily. Taking as directed BIPAP Initiate BiPAP @ 20/14 cm of water with heated humidification. Ti Max 1.0, Ti Min 0.3, trigger medium, cycle high. Mask (medium AirFit F10 full face mask or per patient preference) optional chin strap (if indicated) , filters, tubing, humidifier and lifetime supplies. Patient not taking: Reported on 11/10/2021 blood sugar diagnostic (TRUE METRIX GLUCOSE TEST STRIP) test strip Test blood sugars twice a day DX: E11.65 Insulin: No Use as instructed Blood-Glucose Meter monitoring kit Insurance covered or per patient choice. Test blood sugar twice daily plus as needed for symptoms of blood sugars being too high or low. Dx: Type 2 DM - Uncontrolled E11.65 Insulin:No busPIRone (BUSPAR) 15 mg tablet Take 0.5 tablets by mouth twice daily. Taking as directed cetirizine (ZYRTEC) 10 mg tablet Take 1 tablet by mouth once daily. Taking as directed diclofenac (VOLTAREN ARTHRITIS PAIN) 1 % topical gel Apply 2-4 g to affected area four times daily as needed (feet pain). PRN diphenoxylate-atropine (LOMOTIL) 2.5-0.025 mg per tablet Take 1 tablet by mouth four times daily asneeded. PRN fluticasone (FLONASE) 50 mcg/actuation nasal spray Use 2 Sprays in each nostril once daily. Rinse mouth after use. Taking as directed fluticasone-vilanterol (BREO ELLIPTA) 200-25 mcg/dose inhaler Inhale 1 Inhalation as instructed once daily. Taking as directed furosemide (LASIX) 20 mg tablet Take 1 tablet by mouth once daily. Taking as directed gabapentin (NEURONTIN) 300 mg capsule Take 2 capsules by mouth every morning AND 3 capsules every evening. Do all this for 180 days. Do not start before December 09, 2021. Taking as directed gemfibrozil (LOPID) 600 mg tablet Take 1 tablet by mouth twice daily. Taking as directed ibuprofen (MOTRIN) 600 mg tablet Take 1 tablet by mouth every 12 hours. Not taking, has not needed ipratropium (ATROVENT) 0.02 % nebulizer solution Use 2.5 mL via nebulizer four times daily. Unit dose pack of 50 Has on hand, not needed ketoconazole (NIZORAL) 2 % cream Apply 1 application to affected area once daily. As needed Lancets lancets Test blood sugar(s) 2 times daily. Dx: Type 2 DM - Uncontrolled E11.65 Insulin: No lipase/protease/amylase (CREON ORAL) Take by mouth. Dr. Caceres, unsure of dose Was taking but has not taken in a few weeks, plans to follow up with her specialist Dr. Caceres to decide if she still needs it Patient to follow up with GI specialist lisinopril (ZESTRIL, PRINIVIL) 20 mg tablet Take 1 tablet by mouth once daily. Taking as directed metFORMIN ER (GLUCOPHAGE XR) 500 mg 24 hr tablet Take 1 tablet by mouth twice daily before meals. Taking as directed Nebulizer NEBULIZER FOR HOME USE. DX: J45.42 potassium chloride (K-TAB) 10 mEq tablet Take 1 tablet by mouth daily with breakfast. Taking as directed sertraline (ZOLOFT) 100 mg tablet Take 2 tablets by mouth once daily. Taking as directed traZODone (DESYREL) 100 mg tablet Take 1 tablet by mouth daily at bedtime. Taking as directed ursodiol (ACTIGALL) 300 mg capsule Take 1 capsule by mouth twice daily. Taking as directed OTCL Labs reviewed: Lab Results Component Value Date HBA1C 6.4 08/14/2021 HBA1C 6.4 03/30/2021 HBA1C 6.0 10/07/2020 CMP: Glucose 95 08/14/2021 BUN 14 08/14/2021 Creatinine, Whole Blood (iSTAT) 0.53 08/14/2021 Sodium 142 08/14/2021 Potassium 3.7 08/14/2021 Albumin 4.5 08/14/2021 Calcium 9.0 08/14/2021 AST 16 08/14/2021 ALT 9 08/14/2021 Lab Results Component Value Date CHOL 149 03/30/2021 LDL 68 03/30/2021 HDL 30 03/30/2021 TG 254 03/30/2021 Lab Results Component Value Date UALBCR Not calculated 08/14/2021 RECOMMENDATIONS/PLAN Reviewed name, strength, route, frequency and time of administration of medications. Medication list updated as described in above medication chart. Discussed that current regimen is safe to take as prescribed. No need to space out any medications. The patient did verbalize understanding of information discussed today. I encouraged her to contactP office and/or me with any questions or concerns. Follow up: Routine PCP follow up 04/06/22 Time spent: 13 minutes Odilia Costello RPh 02/06/2022, 10:18 AM documented in this encounterUniversity Hospitals Beachwood [facility] Center05-12-2022 History of Present illness Narrative* Leila Rubi PA-C - 01/18/2022 2:38 PM EDT [facility] [place], 01/18/2022: Name: Garland De Santiago : 1960 The patient is here today by herself. HPI: Garland De Santiago is a 61 yo female with pmh significant for allergic rhinitis, anxiety, depression, DM, HTN, hyperlipidemia, YARY on BiPAP, and emphysema. Current daily smoker, 36 pack years. The patient is here for follow up of COPD. Since the last Pulmonary Clinic visit 11/10/2021, the patient has not required ED care for exacerbation. There has been no hospital admission for exacerbation. Claims to be consistently compliant with prescribed maintenance Rx Breo 1 inhalation daily. Daily use of rescue bronchodilator, with some relief. Daily cough. White phelgm. No hemoptysis. Frequent wheezing with seasonal allergies. Notes post nasal drip and rhinorrhea. Takes Zyrtec, Flonase and weekly immunotherapy per Dr. Salazar at [facility]. No dyspnea at rest. Exertional dyspnea is a little worse since last OV. No lower extremity edema. Describes mid-sternal chest burning. Was evaluated by cardiology (Dr. Villegas) at [facility]. Has echocardiogram and stress test scheduled next week. Currently seeing GI secondary to stomach bloating and diarrhea. Scheduled for EGD/Colonoscopy April 05, 2022. States 8 days ago she started Mediterranean diet and stopped drinking soda. PMH: Updated with patient today. FAMH: Updated with patient today. SOCH: Updated with patient today. Currently smoking 1 ppd. Trying to cut back. Would like to quit, but has a lot of medical concerns right now. IMMUNIZATIONS Prevnar 13 - xx Pneumovax 23 - 09/09/2010, 03/22/2010 Influenza - 08/04/2021 COVID-19 - 08/04/2021, 12/15/2020, 11/16/2020 ROS: See HPI Allergies were reviewed and updated, and medications were reconciled with the patient. PHYSICAL EXAMINATION: BP (P) 104/62 Pulse (P) 80 Resp (P) 17 Wt (P) 92.1 kg (203 lb) SpO2 (P) 98% BMI (P) 32.77kg/m Gen: No acute distress. Cooperative with examination. ENT: Oral hygeine and dentition good. Pharynx clear. No halitosis. No sign of oral thrush. Resp: No stridor, accessory respiratory muscle use, supra-sternal or intercostal retractions. No wheezes, crackles. CV: Regular rythm. Heart tones normal. Radial pulses normal. Abd: Non distended. MSK: No kyphoscoliosis. Ext: Warm and well perfused. No clubbing, cyanosis, edema. Skin: No rash, ecchymoses. Neuro: Mental status normal. Affect normal. No tremor. DATA REVIEW: PFT, 09/29/2021 IMPRESSION: Spirometry indicates mild obstruction. There was not a significant bronchodilator response. Electronically Signed On 09-29-2021 17:37:14 EST by Mona Corrigan M.D. SERVICE DATE: 09/29/2021 SERVICE TIME: 10:00 AM Oral Exhaled Nitric Oxide measurement: 5.0 (ppb) Imaging / Diagnostic Studies: Low-dose chest [facility]: Mild upper lobe emphysema Coronary artery calcifications No suspicious lesions Lung RADS 1 ASSESSMENT/PLAN: 1. Stage 2 moderate COPD by GOLD classification (HCC) - ICD9: 496, ICD10: J44.9 (primary diagnosis) Symptomatically continues with cough and exertional dyspnea. May be multi- factorial. Patient has cardiac testing (echo and stress test) next week. Discussed starting Omeprazole for GERD, however, patient would like to hold off at this time. Will increase Breo to COPD dosing and see if she sees any benefits. Allergy immunotherapy for [facility]. - FLUTICASONE FUROATE 200 MCG-VILANTEROL 25 MCG/DOSE INHALATION POWDER 2. Cigarette smoker - ICD9: 305.1, ICD10: F17.210 Cessation encouraged. Physiologic and physical aspects of tobacco addiction as well as strategies for quitting were discussed. Counseling was given focusing on the harmful effects of this addiction especially given the patient's medical condition(s) which will be worsened because of the chemicals in tobacco. Patient does not have a desire to quit at this time. 3. Seasonal allergies - ICD9: 477.9, ICD10: J30.2 Continue Zyrtec, Flonase and immunotherapy. I addressed the questions of the patient, and she expressed understanding and acceptance of my answers. Leila Rubi PA-C documented in this encounterUniversity Hospitals Beachwood Medical Center05-03-2022 History of Present illness Narrative* Willam Estrada MD - 01/09/2022 2:05 PM EDT This note was created using [employer]. Subjective Garland De Santiago is a 61 year old female. Patient presents with: Hematuria SUBJECTIVE: Garland De Santiago is a 61 year old year old lady here today for follow up appointment for review ofmedical conditions--hematuria and urinary bladder pain after urination. Frequency and urgency several times an hour. Only one other ladder infection in her life before. Was dark blood starting today.[place] when wipes after urinating. Also noted sediment when urinated--some bright red. Dr. Villegas--cardiology--told her that she can go for walks. January 24 stress test and echo for ROJO with even just half a block. Burning sensation in upper sternum with walking. Dr. Caceres--GI.Had today an US for eval pancreas, GB, etc. Has had CT abdomen and gastric emptying study. March 06, EGD and colonoscopy. Dr. Corrigan--pulmonary--will see on . Reviewed prior antibiotic--november last year treated with macrobid for UTI symptoms. PAST MEDICAL HISTORY Diagnosis Date Allergic rhinitis, cause unspecified 02/10/2007 Anxiety Arthritis Asthma 02/10/2007 Centrilobular emphysema (HCC) Depression Psychiatrist managing (Dr. Bedolla) DM type 2 (diabetes mellitus, type 2) (HCC) Essential hypertension 05/23/2006 Hemorrhage of gastrointestinal tract, unspecified 12/13/2011 Had bleeding hemorrhoids in 2011; normal colonoscopy Internal hemorrhoids without mention of complication 12/13/2011 Mixed hyperlipidemia 05/23/2006 Obesity (BMI 30.0-34.9) YARY (obstructive sleep apnea) Uses BiPAP occasionally Other nonspecific abnormal finding 05/23/2006 CK Elevation Snoring Current Outpatient Medications Medication Sig aspirin, enteric coated (ASPIRIN, ENTERIC COATED) 81 mg EC tablet Take 81 mg by mouth once daily. diphenoxylate-atropine (LOMOTIL) 2.5-0.025 mg per tablet Take 1 tablet by mouth four times daily asneeded. lipase/protease/amylase (CREON ORAL) Take by mouth. Dr. Caceres, unsure of dose gabapentin (NEURONTIN) 300 mg capsule Take 2 capsules by mouth every morning AND 3 capsules every evening. Do all this for 180 days. Do not start before December 09, 2021. ALPRAZolam (XANAX) 0.5 mg tablet Take 1 tablet by mouth at bedtime as needed for up to 120 days. Donot start before December 09, 2021. ibuprofen (MOTRIN) 600 mg tablet Take 1 tablet by mouth every 12 hours. diclofenac (VOLTAREN ARTHRITIS PAIN) 1 % topical gel Apply 2-4 g to affected area four times daily as needed (feet pain). fluticasone-vilanterol (BREO ELLIPTA) 100-25 mcg/dose inhaler Inhale 1 Inhalation as instructed once daily. albuterol HFA (VENTOLIN HFA) 90 mcg/actuation inhaler Inhale 2 Puffs as instructed every 4 hours asneeded. Lancets lancets Test blood sugar(s) 2 times daily. Dx: Type 2 DM - Uncontrolled E11.65 Insulin: No blood sugar diagnostic (TRUE METRIX GLUCOSE TEST STRIP) test strip Test blood sugars twice a day DX: E11.65 Insulin: No Use as instructed metFORMIN ER (GLUCOPHAGE XR) 500 mg 24 hr tablet Take 1 tablet by mouth twice daily before meals. ipratropium (ATROVENT) 0.02 % nebulizer solution Use 2.5 mL via nebulizer four times daily. Unit dose pack of 50 albuterol (PROVENTIL) 2.5 mg /3 mL (0.083 %) nebulizer solution Use 3 mL via nebulizer every 4 hours as needed for wheezing/shortness of breath. ketoconazole (NIZORAL) 2 % cream Apply 1 application to affected area once daily. cetirizine (ZYRTEC) 10 mg tablet Take 1 tablet by mouth once daily. sertraline (ZOLOFT) 100 mg tablet Take 2 tablets by mouth once daily. busPIRone (BUSPAR) 15 mg tablet Take 0.5 tablets by mouth twice daily. gemfibrozil (LOPID) 600 mg tablet Take 1 tablet by mouth twice daily. atenolol (TENORMIN) 50 mg tablet Take 1 tablet by mouth once daily. furosemide (LASIX) 20 mg tablet Take 1 tablet by mouth once daily. potassium chloride (K-TAB) 10 mEq tablet Take 1 tablet by mouth daily with breakfast. traZODone (DESYREL) 100 mg tablet Take 1 tablet by mouth daily at bedtime. lisinopril (ZESTRIL, PRINIVIL) 20 mg tablet Take 1 tablet by mouth once daily. fluticasone (FLONASE) 50 mcg/actuation nasal spray Use 2 Sprays in each nostril once daily. Rinse mouth after use. Blood-Glucose Meter monitoring kit Insurance covered or per patient choice. Test blood sugar twice daily plus as needed for symptoms of blood sugars being too high or low. Dx: Type 2 DM - Uncontrolled E11.65 Insulin:No Nebulizer NEBULIZER FOR HOME USE. DX: J45.42 BIPAP Initiate BiPAP @ 20/14 cm of water with heated humidification. Ti Max 1.0, Ti Min 0.3, trigger medium, cycle high. Mask (medium AirFit F10 full face mask or per patient preference) optional chin strap (if indicated) , filters, tubing, humidifier and lifetime supplies. (Patient not taking: Reported on 11/10/2021 ) No current facility-administered medications for this visit. Review of Systems Objective BP 142/90 Pulse 88 Wt 93.9 kg (207 lb) BMI 33.41 kg/m Last 5 Encounter Wt Readings: Date: Wt: 01/09/2022 93.9 kg (207 lb) 12/04/2021 94.3 kg (208 lb) 11/10/2021 94.2 kg (207 lb 9.6 oz) 09/29/2021 92.5 kg (204 lb) 09/29/2021 92.6 kg (204 lb 3.2 oz) No waist measurement recorded Estimated body mass index is 33.41 kg/m as calculated from the following: Height as of 11/10/21: 167.6 cm (5' 6). Weight as of this encounter: 93.9 kg (207 lb). Last 5 Encounter BP Readings: Date: BP: 01/09/2022 142/90 12/04/2021 126/86 11/10/2021 136/71 09/29/2021 130/80 09/12/2021 112/78 Physical Exam Constitutional: Appearance: Normal appearance. HENT: Head: Normocephalic. Eyes: Conjunctiva/sclera: Conjunctivae normal. Cardiovascular: Rate and Rhythm: Normal rate and regular rhythm. Heart sounds: Normal heart sounds. Pulmonary: Effort: Pulmonary effort is normal. Breath sounds: Wheezing present. Abdominal: General: There is no distension. Palpations: Abdomen is soft. Tenderness: There is no abdominal tenderness. There is no right CVA tenderness or left CVA tenderness. Skin: General: Skin is warm and dry. Neurological: General: No focal deficit present. Mental Status: She is alert and oriented to person, place, and time. Psychiatric: Mood and Affect: Mood normal. Behavior: Behavior normal. Thought Content: Thought content normal. Judgment: Judgment normal. Urine dip shows: Blood--large [place] Trace Rest negative. Spec Grav 1.020 Assessment and Plan Encounter Diagnosis ICD-10-CM 1. Gross hematuria R31.0 URINE CULTURE URINALYSIS, WITH MICROSCOPIC 2. Acute cystitis with hematuria N30.01 URINE CULTURE URINALYSIS, WITH MICROSCOPIC 3. Dysuria R30.0 URINE CULTURE URINALYSIS, WITH MICROSCOPIC 4. Urinary frequency R35.0 URINE CULTURE URINALYSIS, WITH MICROSCOPIC 5. Urinary urgency R39.15 URINE CULTURE URINALYSIS, WITH MICROSCOPIC 6. Essential hypertension I10 7. Cigarette smoker F17.210 ASSESSMENT/PLAN: 1. Gross hematuria - ICD9: 599.71, ICD10: R31.0 (primary diagnosis) - URINE CULTURE - URINALYSIS, WITH MICROSCOPIC 2. Acute cystitis with hematuria - ICD9: 595.0, ICD10: N30.01 - URINE CULTURE - URINALYSIS, WITH MICROSCOPIC 3. Dysuria - ICD9: 788.1, ICD10: R30.0 - URINE CULTURE - URINALYSIS, WITH MICROSCOPIC 4. Urinary frequency - ICD9: 788.41, ICD10: R35.0 - URINE CULTURE - URINALYSIS, WITH MICROSCOPIC 5. Urinary urgency - ICD9: 788.63, ICD10: R39.15 - URINE CULTURE - URINALYSIS, WITH MICROSCOPIC 6. Essential hypertension - ICD9: 401.9, ICD10: I10 - good control - Continue current medication(s) - Recommended regular aerobic exercise. - Recommend home blood pressure monitoring, to bring results in on next visit - Goal of BP <130/80 7. Cigarette smoker - ICD9: 305.1, ICD10: F17.210 - Cessation encouraged. - Physiologic and physical aspects of tobacco addiction as well as strategies for quitting were discussed. Willam Estrada MD documented in this encounterUniversity [facility]04-11-2022 History of Present illness Narrative* Kimmy Mariscal RN - 12/18/2021 11:41 AM EDT [employer] Enrollment Provider Action/FYI: Enrolled in program via smartphone. Patient referred by: [facility] Shahla Contact made with patient: Yes - Patient identified by name and . Discussed care with patient Juan this is Kimmy Mariscal RN and I am calling from Willam Estrada MD office at the [facility]. I am a RN Sheet Metal Worker Apprentice with our [employer] Chronic Disease Management program. Willam Estrada MD wanted me to reach out to help you manage your health at home. Our goal is to keep you well at home. We want to help you manage your chronic disease by providing a safety net of resources around you, getting you the care you need in a timely manner, and hopefully keep you out of the ED andhospital. I will send you a few questions once a week through your [employer] account. It will automatically show up for you to complete. There are simple questions that will help us identify if you have any concerns or symptoms and I will call you to help get what you need. We will be able to connectyou, review your symptoms, do an on demand visit, or communicate with Willam Estrada MD if needed. I am going to sign you up for the program now. Enrollment Questions: Let's get you enrolled in the program. Yes, Do you have regular access to a computer/smartphone? Yes. Goal Setting: I would like to take some time today to discuss your personal health goals. Yes, patient has goals. Capture the goal the patient wants to accomplish: Continue to feel well overall. . Does the goal align with programs offered at the [facility]? 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 I am excited to work together in managing your health! You will receive information on next steps through your G[employer] account, and I will check back within a few weeks to ensure you have all that you need to use the program successfully. (Place name in care team and assign [employer] Adventure Guide questionnaire) Most people know what to do to become healthier, yet struggle to put it into action on their own.Itcan be hard to maintain a healthy lifestyle, especially when life is so stressful. Can we connect you with a [facility] Health Police Clerk to find a program that could help you meet your goals? 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 I am excited to work together in managing your health! You will receive information on next steps through your G[employer] account, and I will check back within a few weeks to ensure you have all that you need to use the program successfully. (Place name in care team and assign G[employer] Adventure Guide questionnaire) documented in this encounterUniversity Hospitals [facility]04-06-2022 History of Present illness Narrative* Kimmy Mariscal RN - 12/13/2021 4:12 PM EDT PRIMARY CARE COORDINATION QUICK NOTE Provider Action/FYI [facility] intro message sent. Patient identified by name and date . documented in this encounterUniversity Hospitals [facility]04-01-2022 Miscellaneous Notes* Telephone Encounter - Keshia Diaz LPN - 12/08/2021 4:01 PM EDT Spoke with Sylwia from [facility] and gave her providers message and she verbalized understanding. * Telephone Encounter - Leilani Ramirez APRN.CNS - 12/08/2021 3:36 PM EDT ok * Telephone Encounter - Gillian Higginbotham RN - 12/08/2021 11:55 AM EDT Sylwia from [facility] calls back to ask if it is ok to fill gabapentin today also d/t being closed tomorrow on fill date. Please review and advise, Gillian Higginbotham RN * Telephone Encounter - Ashley Hernandez RN - 12/08/2021 11:52 AM EDT Sylwia from [facility] pharmacy calls and is asking if it is ok to refill alprazolam today. They are closed tomorrow on the fill date. Please review and advise, Ashley Hernandez RN documented in this encounterUniversity Hospitals [facility] Center03-28-2022 Instructions* Patient Instructions* Willam Estrada MD - 12/04/2021 5:33 PM EDT Avoid high fructose corn syrup and too much foods with fructose. Avoid too much lactose containing foods. Consider Beano with vegetables. May take Gas X (simethicone) with each meal and bedtime routinely. Take when eat.. Take Lactaid with anything with milk products. documented in this encounterUniversity Hospitals [facility]03-28-2022 History of Present illness Narrative* Willam Estrada MD - 12/04/2021 5:00 PM EDT This note was created using [employer]. Subjective Garland De Santiago is a 61 year old female. Patient presents with: Follow Up SUBJECTIVE: Garland De Santiago is a 61 year old year old lady here today for follow up appointment for review ofmedical conditions. Still gets SOB. ROJO and exhaustion noted. No energy. Not sleeping well starting 3 to 4 months ago--not sure why. Wakes up every 1 to 1.5 hours. Normallyhas to go pee but not all the time. Sometimes just wakes up. Can be up 8 time a night, Lays down atnight because feet feel like standing on broken glass. Started 3 to 4 months ago. New shoes has helped. Sometimes the apartment is too hot. Sometimes pain can wake her up. Ibuprofen helps--takes every 12 hours. Alprazolam used to help her sleep. Not now though still helps take some anxiety away. No naps in daytime. Also noted burning sensation in chest plus stomach issues. Severe bloating. Even though had not eaten in [address] Caceres[facility] in [place]. Prefers to keep care in [place]. Also gets woozy if closes eyes in shower. Some lactose intolerance. PAST MEDICAL HISTORY Diagnosis Date Allergic rhinitis, cause unspecified 02/10/2007 Anxiety Arthritis Asthma 02/10/2007 Centrilobular emphysema (HCC) Depression Psychiatrist managing (Dr. Bedolla) DM type 2 (diabetes mellitus, type 2) ([facility]) Essential hypertension 05/23/2006 Hemorrhage of gastrointestinal tract, unspecified 12/13/2011 Had bleeding hemorrhoids in 2011; normal colonoscopy Internal hemorrhoids without mention of complication 12/13/2011 Mixed hyperlipidemia 05/23/2006 Obesity (BMI 30.0-34.9) YARY (obstructive sleep apnea) Uses BiPAP occasionally Other nonspecific abnormal finding 05/23/2006 CK Elevation Snoring Current Outpatient Medications Medication Sig fluticasone-vilanterol (BREO ELLIPTA) 100-25 mcg/dose inhaler Inhale 1 Inhalation as instructed once daily. albuterol HFA (VENTOLIN HFA) 90 mcg/actuation inhaler Inhale 2 Puffs as instructed every 4 hours asneeded. Lancets lancets Test blood sugar(s) 2 times daily. Dx: Type 2 DM - Uncontrolled E11.65 Insulin: No blood sugar diagnostic (TRUE METRIX GLUCOSE TEST STRIP) test strip Test blood sugars twice a day DX: E11.65 Insulin: No Use as instructed metFORMIN ER (GLUCOPHAGE XR) 500 mg 24 hr tablet Take 1 tablet by mouth twice daily before meals. ipratropium (ATROVENT) 0.02 % nebulizer solution Use 2.5 mL via nebulizer four times daily. Unit dose pack of 50 albuterol (PROVENTIL) 2.5 mg /3 mL (0.083 %) nebulizer solution Use 3 mL via nebulizer every 4 hours as needed for wheezing/shortness of breath. ALPRAZolam (XANAX) 0.5 mg tablet Take 1 tablet by mouth at bedtime as needed for up to 120 days. ketoconazole (NIZORAL) 2 % cream Apply 1 application to affected area once daily. gabapentin (NEURONTIN) 300 mg capsule Take 2 capsules by mouth every morning AND 3 capsules every evening. Do all this for 180 days. ibuprofen (MOTRIN) 600 mg tablet Take 1 tablet by mouth every 12 hours. cetirizine (ZYRTEC) 10 mg tablet Take 1 tablet by mouth once daily. sertraline (ZOLOFT) 100 mg tablet Take 2 tablets by mouth once daily. busPIRone (BUSPAR) 15 mg tablet Take 0.5 tablets by mouth twice daily. gemfibrozil (LOPID) 600 mg tablet Take 1 tablet by mouth twice daily. atenolol (TENORMIN) 50 mg tablet Take 1 tablet by mouth once daily. furosemide (LASIX) 20 mg tablet Take 1 tablet by mouth once daily. potassium chloride (K-TAB) 10 mEq tablet Take 1 tablet by mouth daily with breakfast. traZODone (DESYREL) 100 mg tablet Take 1 tablet by mouth daily at bedtime. lisinopril (ZESTRIL, PRINIVIL) 20 mg tablet Take 1 tablet by mouth once daily. fluticasone (FLONASE) 50 mcg/actuation nasal spray Use 2 Sprays in each nostril once daily. Rinse mouth after use. Blood-Glucose Meter monitoring kit Insurance covered or per patient choice. Test blood sugar twice daily plus as needed for symptoms of blood sugars being too high or low. Dx: Type 2 DM - Uncontrolled E11.65 Insulin:No Nebulizer NEBULIZER FOR HOME USE. DX: J45.42 ALPRAZolam (XANAX) 0.5 mg tablet Take 1 tablet by mouth at bedtime as needed for up to 30 days. BIPAP Initiate BiPAP @ 20/14 cm of water with heated humidification. Ti Max 1.0, Ti Min 0.3, trigger medium, cycle high. Mask (medium AirFit F10 full face mask or per patient preference) optional chin strap (if indicated) , filters, tubing, humidifier and lifetime supplies. (Patient not taking: Reported on 11/10/2021 ) No current facility-administered medications for this visit. Review of Systems Objective BP 126/86 Pulse 82 Wt 94.3 kg (208 lb) BMI 33.57 kg/m Last 5 Encounter Wt Readings: Date: Wt: 12/04/2021 94.3 kg (208 lb) 11/10/2021 94.2 kg (207 lb 9.6 oz) 09/29/2021 92.5 kg (204 lb) 09/29/2021 92.6 kg (204 lb 3.2 oz) 09/12/2021 92.1 kg (203 lb) No waist measurement recorded Estimated body mass index is 33.57 kg/m as calculated from the following: Height as of 11/10/21: 167.6 cm (5' 6). Weight as of this encounter: 94.3 kg (208 lb). Last 5 Encounter BP Readings: Date: BP: 12/04/2021 126/86 11/10/2021 136/71 09/29/2021 130/80 09/12/2021 112/78 08/31/2021 122/78 Physical Exam Constitutional: Appearance: Normal appearance. HENT: Head: Normocephalic. Eyes: Conjunctiva/sclera: Conjunctivae normal. Cardiovascular: Rate and Rhythm: Normal rate and regular rhythm. Heart sounds: Normal heart sounds. Pulmonary: Effort: Pulmonary effort is normal. Breath sounds: Normal breath sounds. Abdominal: Palpations: Abdomen is soft. Comments: Gassy distension Skin: General: Skin is warm and dry. Neurological: General: No focal deficit present. Mental Status: She is alert and oriented to person, place, and time. Psychiatric: Mood and Affect: Mood normal. Behavior: Behavior normal. Thought Content: Thought content normal. Judgment: Judgment normal. Assessment and Plan Encounter Diagnosis ICD-10-CM 1. Neuropathy G62.9 gabapentin (NEURONTIN) 300 mg capsule 2. Anxiety and depression F41.9 ALPRAZolam (XANAX) 0.5 mg tablet F32.A 3. Neck pain, musculoskeletal M54.2 ibuprofen (MOTRIN) 600 mg tablet 4. Insomnia, unspecified type G47.00 5. Abdominal distension, gaseous R14.0 ASSESSMENT/PLAN: 1. Neuropathy - ICD9: 355.9, ICD10: G62.9 (primary diagnosis) Further evaluation and treatment as indicated. - GABAPENTIN 300 MG CAPSULE 2. Anxiety and depression - ICD9: 300.00, 311, ICD10: F41.9, F32.A Emotional support given - ALPRAZOLAM 0.5 MG TABLET 3. Neck pain, musculoskeletal - ICD9: 723.1, ICD10: M54.2 Further evaluation and treatment as indicated. - IBUPROFEN 600 MG TABLET 4. Insomnia, unspecified type - ICD9: 780.52, ICD10: G47.00 Continue present management. Further evaluation and treatment as indicated. 5. Abdominal distension, gaseous - ICD9: 787.3, ICD10: R14.0 Discussed management. Further evaluation and treatment as indicated. Willam Estrada MD documented in this encounterUniversity Hospitals [facility]12-06-2021 History of Present illness Narrative* Jennifer Castle RT(R) - 08/14/2021 3:50 PM EST Radiology Service Progress Note PATIENT NAME: Garland De Santiago DATE OF SERVICE: August 14, 2021 TIME: 4:08 PM PATIENT IDENTITY VERIFICATION COMPLETED USING TWO (2) IDENTIFIERS: Name and Date of confirmedby patient verbally. FALL SCREENING: Has the patient had 2 falls in the last year or 1 fall with injury or currently using an Ambulatory Assistive Device (Walker, Cane, Wheelchair, Crutches, etc.)? No PATIENT GENDER DATA: Female. status: : No status: NO. PATIENT RELEVANT IMPLANT DATA REVIEWED: Yes RADIOLOGY DEPARTMENT: General X-ray: Exam(s) Completed: Chest X-Ray PERIPHERAL IV DATA: Not applicable SIGNED BY: RT Andrea(R) August 14, 2021 4:08 PM documented in this encounterUniversity Hospitals [facility]07-14-2021 History of Present illness Narrative* Demond Love RT(R) - 03/22/2021 7:30 PM EDT Radiology Service Progress Note PATIENT NAME: Garland De Santiago DATE OF SERVICE: March 22, 2021 TIME: 7:24 PM PATIENT IDENTITY VERIFICATION COMPLETED USING TWO (2) IDENTIFIERS: Name and Date of confirmedby patient verbally. FALL SCREENING: Has the patient had 2 falls in the last year or 1 fall with injury or currently using an Ambulatory Assistive Device (Walker, Cane, Wheelchair, Crutches, etc.)? No PATIENT GENDER DATA: Female. status: : No status: NO. PATIENT RELEVANT IMPLANT DATA REVIEWED: Not Applicable RADIOLOGY DEPARTMENT: General X-ray: Exam(s) Completed: Chest X-Ray PERIPHERAL IV DATA: Not applicable SIGNED BY: RT Aaron(R) March 22, 2021 7:24 PM documented in this encounterUniversity Hospitals [facility] Center12-09-2020 History of Present illness Narrative* Saba Heller Tech (Tech) - 08/17/2020 3:30 PM EST Radiology Service Progress Note PATIENT NAME: Garland De Santiago DATE OF SERVICE: August 17, 2020 TIME: 3:26 PM PATIENT IDENTITY VERIFICATION COMPLETED USING TWO (2) IDENTIFIERS: Name and Date of confirmedby patient verbally. FALL SCREENING: Has the patient had 2 falls in the last year or 1 fall with injury or currently using an Ambulatory Assistive Device (Walker, Cane, Wheelchair, Crutches, etc.)? No PATIENT GENDER DATA: Female. status: : No status: NO. PATIENT RELEVANT IMPLANT DATA REVIEWED: Not Applicable RADIOLOGY DEPARTMENT: General X-ray: Exam(s) Completed: Spine X-Ray(s): Lumbar AP / LAT / FLEX-EXT PERIPHERAL IV DATA: Not applicable SIGNED BY: Paloma Randle August 17, 2020 3:26 PM documented in this encounterUniversity Hospitals Beach[facility] Center08-19-2020 History of Past illness Narrative* Problem Noted Date Resolved Date Cauda equina compression 04/27/2020 020 Lumbar stenosis 04/27/2020 05/18/2020 Neck pain, musculoskeletal 03/08/201903/29 Abdominal discomfort, epigastric 02/09/2016 03/29/2021 Pain in joint, lower leg 05/03/2015 020 Headache 10/30/2013 03/29/2021 Laryngitis 10/30/2013 01/04/2015 Internal hemorrhoids without mention of complica tion 12/13/2011 08/14/2021 Hemorrhage of gastrointestinal tract, unspecifie d 12/13/2011 12/15/2013 Diarrhea 12/13/2011 01/04/2015 Cephalgia 08/15/2011 01/04/2015 Calculus of gallbladder with other cholecystitis, without mention of obstruction 10/18/2006 12/15/2013 Impaired fasting glucose 05/23/2006 017 Mixed hyperlipidemia 05/23/2006 12/21/2013 DM type 2 (diabetes mellitus, type 2) 05/18/2020 documented as of this encounter (statuses as of 12/08/2021) [facility] History of Past illness Narrative* Problem Noted Date Resolved Date Cauda equina compression 04/27/2020 020 Lumbar stenosis 04/27/2020 05/18/2020 Neck pain, musculoskeletal 03/08/201903/29 Abdominal discomfort, epigastric 02/09/2016 03/29/2021 Pain in joint, lower leg 05/03/2015 020 Headache 10/30/2013 03/29/2021 Laryngitis 10/30/2013 01/04/2015 Internal hemorrhoids without mention of complica tion 12/13/2011 08/14/2021 Hemorrhage of gastrointestinal tract, unspecifie d 12/13/2011 12/15/2013 Diarrhea 12/13/2011 01/04/2015 Cephalgia 08/15/2011 01/04/2015 Calculus of gallbladder with other cholecystitis, without mention of obstruction 10/18/2006 12/15/2013 Impaired fasting glucose 05/23/2006 017 Mixed hyperlipidemia 05/23/2006 12/21/2013 DM type 2 (diabetes mellitus, type 2) 05/18/2020 documented as of this encounter (statuses as of 12/13/2021) [facility] History of Past illness Narrative* Problem Noted Date Resolved Date Cauda equina compression 04/27/2020 020 Lumbar stenosis 04/27/2020 05/18/2020 Neck pain, musculoskeletal 03/08/201903/29 Abdominal discomfort, epigastric 02/09/2016 03/29/2021 Pain in joint, lower leg 05/03/2015 020 Headache 10/30/2013 03/29/2021 Laryngitis 10/30/2013 01/04/2015 Internal hemorrhoids without mention of complica tion 12/13/2011 08/14/2021 Hemorrhage of gastrointestinal tract, unspecifie d 12/13/2011 12/15/2013 Diarrhea 12/13/2011 01/04/2015 Cephalgia 08/15/2011 01/04/2015 Calculus of gallbladder with other cholecystitis, without mention of obstruction 10/18/2006 12/15/2013 Impaired fasting glucose 05/23/2006 017 Mixed hyperlipidemia 05/23/2006 12/21/2013 DM type 2 (diabetes mellitus, type 2) 05/18/2020 documented as of this encounter (statuses as of 12/13/2021) [facility]2020 History of Past illness Narrative* Problem Noted Date Resolved Date Cauda equina compression 04/27/2020 020 Lumbar stenosis 04/27/2020 05/18/2020 Neck pain, musculoskeletal 03/08/201903/29 Abdominal discomfort, epigastric 02/09/2016 03/29/2021 Pain in joint, lower leg 05/03/2015 020 Headache 10/30/2013 03/29/2021 Laryngitis 10/30/2013 01/04/2015 Internal hemorrhoids without mention of complica tion 12/13/2011 08/14/2021 Hemorrhage of gastrointestinal tract, unspecifie d 12/13/2011 12/15/2013 Diarrhea 12/13/2011 01/04/2015 Cephalgia 08/15/2011 01/04/2015 Calculus of gallbladder with other cholecystitis, without mention of obstruction 10/18/2006 12/15/2013 Impaired fasting glucose 05/23/2006 017 Mixed hyperlipidemia 05/23/2006 12/21/2013 DM type 2 (diabetes mellitus, type 2) 05/18/2020 documented as of this encounter (statuses as of 12/18/2021) [facility]2020 History of Past illness Narrative* Problem Noted Date Resolved Date Cauda equina compression 04/27/2020 020 Lumbar stenosis 04/27/2020 05/18/2020 Neck pain, musculoskeletal 03/08/201903/29 Abdominal discomfort, epigastric 02/09/2016 03/29/2021 Pain in joint, lower leg 05/03/2015 020 Headache 10/30/2013 03/29/2021 Laryngitis 10/30/2013 01/04/2015 Internal hemorrhoids without mention of complica tion 12/13/2011 08/14/2021 Hemorrhage of gastrointestinal tract, unspecifie d 12/13/2011 12/15/2013 Diarrhea 12/13/2011 01/04/2015 Cephalgia 08/15/2011 01/04/2015 Calculus of gallbladder with other cholecystitis, without mention of obstruction 10/18/2006 12/15/2013 Impaired fasting glucose 05/23/2006 017 Mixed hyperlipidemia 05/23/2006 12/21/2013 DM type 2 (diabetes mellitus, type 2) 05/18/2020 documented as of this encounter (statuses as of 01/18/2022) [facility] History of Past illness Narrative* Problem Noted Date Resolved Date Cauda equina compression 04/27/2020 020 Lumbar stenosis 04/27/2020 05/18/2020 Neck pain, musculoskeletal 03/08/201903/29 Abdominal discomfort, epigastric 02/09/2016 03/29/2021 Pain in joint, lower leg 05/03/2015 020 Headache 10/30/2013 03/29/2021 Laryngitis 10/30/2013 01/04/2015 Internal hemorrhoids without mention of complica tion 12/13/2011 08/14/2021 Hemorrhage of gastrointestinal tract, unspecifie d 12/13/2011 12/15/2013 Diarrhea 12/13/2011 01/04/2015 Cephalgia 08/15/2011 01/04/2015 Calculus of gallbladder with other cholecystitis, without mention of obstruction 10/18/2006 12/15/2013 Impaired fasting glucose 05/23/2006 017 Mixed hyperlipidemia 05/23/2006 12/21/2013 DM type 2 (diabetes mellitus, type 2) 05/18/2020 documented as of this encounter (statuses as of 02/06/2022) [facility] History of Past illness Narrative* Problem Noted Date Resolved Date Cauda equina compression 04/27/2020 020 Lumbar stenosis 04/27/2020 05/18/2020 Neck pain, musculoskeletal 03/08/201903/29 Abdominal discomfort, epigastric 02/09/2016 03/29/2021 Pain in joint, lower leg 05/03/2015 020 Headache 10/30/2013 03/29/2021 Laryngitis 10/30/2013 01/04/2015 Internal hemorrhoids without mention of complica tion 12/13/2011 08/14/2021 Hemorrhage of gastrointestinal tract, unspecifie d 12/13/2011 12/15/2013 Diarrhea 12/13/2011 01/04/2015 Cephalgia 08/15/2011 01/04/2015 Calculus of gallbladder with other cholecystitis, without mention of obstruction 10/18/2006 12/15/2013 Impaired fasting glucose 05/23/2006 017 Mixed hyperlipidemia 05/23/2006 12/21/2013 DM type 2 (diabetes mellitus, type 2) 05/18/2020 documented as of this encounter (statuses as of 02/06/2022) [facility]2020 History of Past illness Narrative* Problem Noted Date Resolved Date Cauda equina compression 04/27/2020 020 Lumbar stenosis 04/27/2020 05/18/2020 Neck pain, musculoskeletal 03/08/201903/29 Abdominal discomfort, epigastric 02/09/2016 03/29/2021 Pain in joint, lower leg 05/03/2015 020 Headache 10/30/2013 03/29/2021 Laryngitis 10/30/2013 01/04/2015 Internal hemorrhoids without mention of complica tion 12/13/2011 08/14/2021 Hemorrhage of gastrointestinal tract, unspecifie d 12/13/2011 12/15/2013 Diarrhea 12/13/2011 01/04/2015 Cephalgia 08/15/2011 01/04/2015 Calculus of gallbladder with other cholecystitis, without mention of obstruction 10/18/2006 12/15/2013 Impaired fasting glucose 05/23/2006 017 Mixed hyperlipidemia 05/23/2006 12/21/2013 DM type 2 (diabetes mellitus, type 2) 05/18/2020 documented as of this encounter (statuses as of 02/11/2022) [facility]2020 History of Past illness Narrative* Problem Noted Date Resolved Date Cauda equina compression 04/27/2020 020 Lumbar stenosis 04/27/2020 05/18/2020 Neck pain, musculoskeletal 03/08/201903/29 Abdominal discomfort, epigastric 02/09/2016 03/29/2021 Pain in joint, lower leg 05/03/2015 020 Headache 10/30/2013 03/29/2021 Laryngitis 10/30/2013 01/04/2015 Internal hemorrhoids without mention of complica tion 12/13/2011 08/14/2021 Hemorrhage of gastrointestinal tract, unspecifie d 12/13/2011 12/15/2013 Diarrhea 12/13/2011 01/04/2015 Cephalgia 08/15/2011 01/04/2015 Calculus of gallbladder with other cholecystitis, without mention of obstruction 10/18/2006 12/15/2013 Impaired fasting glucose 05/23/2006 017 Mixed hyperlipidemia 05/23/2006 12/21/2013 DM type 2 (diabetes mellitus, type 2) 05/18/2020 documented as of this encounter (statuses as of 02/19/2022) [facility]2020 History of Past illness Narrative* Problem Noted Date Resolved Date Cauda equina compression 04/27/2020 020 Lumbar stenosis 04/27/2020 05/18/2020 Neck pain, musculoskeletal 03/08/201903/29 Abdominal discomfort, epigastric 02/09/2016 03/29/2021 Pain in joint, lower leg 05/03/2015 020 Headache 10/30/2013 03/29/2021 Laryngitis 10/30/2013 01/04/2015 Internal hemorrhoids without mention of complica tion 12/13/2011 08/14/2021 Hemorrhage of gastrointestinal tract, unspecifie d 12/13/2011 12/15/2013 Diarrhea 12/13/2011 01/04/2015 Cephalgia 08/15/2011 01/04/2015 Calculus of gallbladder with other cholecystitis, without mention of obstruction 10/18/2006 12/15/2013 Impaired fasting glucose 05/23/2006 017 Mixed hyperlipidemia 05/23/2006 12/21/2013 DM type 2 (diabetes mellitus, type 2) 05/18/2020 documented as of this encounter (statuses as of 02/23/2022) [facility]2020 History of Past illness Narrative* Problem Noted Date Resolved Date Cauda equina compression 04/27/2020 020 Lumbar stenosis 04/27/2020 05/18/2020 Neck pain, musculoskeletal 03/08/201903/29 Abdominal discomfort, epigastric 02/09/2016 03/29/2021 Pain in joint, lower leg 05/03/2015 020 Headache 10/30/2013 03/29/2021 Laryngitis 10/30/2013 01/04/2015 Internal hemorrhoids without mention of complica tion 12/13/2011 08/14/2021 Hemorrhage of gastrointestinal tract, unspecifie d 12/13/2011 12/15/2013 Diarrhea 12/13/2011 01/04/2015 Cephalgia 08/15/2011 01/04/2015 Calculus of gallbladder with other cholecystitis, without mention of obstruction 10/18/2006 12/15/2013 Impaired fasting glucose 05/23/2006 017 Mixed hyperlipidemia 05/23/2006 12/21/2013 DM type 2 (diabetes mellitus, type 2) 05/18/2020 documented as of this encounter (statuses as of 02/23/2022) [facility] History of Past illness Narrative* Problem Noted Date Resolved Date Cauda equina compression 04/27/2020 020 Lumbar stenosis 04/27/2020 05/18/2020 Neck pain, musculoskeletal 03/08/201903/29 Abdominal discomfort, epigastric 02/09/2016 03/29/2021 Pain in joint, lower leg 05/03/2015 020 Headache 10/30/2013 03/29/2021 Laryngitis 10/30/2013 01/04/2015 Internal hemorrhoids without mention of complica tion 12/13/2011 08/14/2021 Hemorrhage of gastrointestinal tract, unspecifie d 12/13/2011 12/15/2013 Diarrhea 12/13/2011 01/04/2015 Cephalgia 08/15/2011 01/04/2015 Calculus of gallbladder with other cholecystitis, without mention of obstruction 10/18/2006 12/15/2013 Impaired fasting glucose 05/23/2006 017 Mixed hyperlipidemia 05/23/2006 12/21/2013 DM type 2 (diabetes mellitus, type 2) 05/18/2020 documented as of this encounter (statuses as of 02/24/2022) [facility]2020 History of Past illness Narrative* Problem Noted Date Resolved Date Cauda equina compression 04/27/2020 020 Lumbar stenosis 04/27/2020 05/18/2020 Neck pain, musculoskeletal 03/08/201903/29 Abdominal discomfort, epigastric 02/09/2016 03/29/2021 Pain in joint, lower leg 05/03/2015 020 Headache 10/30/2013 03/29/2021 Laryngitis 10/30/2013 01/04/2015 Internal hemorrhoids without mention of complica tion 12/13/2011 08/14/2021 Hemorrhage of gastrointestinal tract, unspecifie d 12/13/2011 12/15/2013 Diarrhea 12/13/2011 01/04/2015 Cephalgia 08/15/2011 01/04/2015 Calculus of gallbladder with other cholecystitis, without mention of obstruction 10/18/2006 12/15/2013 Impaired fasting glucose 05/23/2006 017 Mixed hyperlipidemia 05/23/2006 12/21/2013 DM type 2 (diabetes mellitus, type 2) 05/18/2020 documented as of this encounter (statuses as of 03/05/2022) [facility]2020 History of Past illness Narrative* Problem Noted Date Resolved Date Cauda equina compression 04/27/2020 020 Lumbar stenosis 04/27/2020 05/18/2020 Neck pain, musculoskeletal 03/08/201903/29 Abdominal discomfort, epigastric 02/09/2016 03/29/2021 Pain in joint, lower leg 05/03/2015 020 Headache 10/30/2013 03/29/2021 Laryngitis 10/30/2013 01/04/2015 Internal hemorrhoids without mention of complica tion 12/13/2011 08/14/2021 Hemorrhage of gastrointestinal tract, unspecifie d 12/13/2011 12/15/2013 Diarrhea 12/13/2011 01/04/2015 Cephalgia 08/15/2011 01/04/2015 Calculus of gallbladder with other cholecystitis, without mention of obstruction 10/18/2006 12/15/2013 Impaired fasting glucose 05/23/2006 017 Mixed hyperlipidemia 05/23/2006 12/21/2013 DM type 2 (diabetes mellitus, type 2) 05/18/2020 documented as of this encounter (statuses as of 03/08/2022) [facility]2020 History of Past illness Narrative* Problem Noted Date Resolved Date Cauda equina compression 04/27/2020 020 Lumbar stenosis 04/27/2020 05/18/2020 Neck pain, musculoskeletal 03/08/201903/29 Abdominal discomfort, epigastric 02/09/2016 03/29/2021 Pain in joint, lower leg 05/03/2015 020 Headache 10/30/2013 03/29/2021 Laryngitis 10/30/2013 01/04/2015 Internal hemorrhoids without mention of complica tion 12/13/2011 08/14/2021 Hemorrhage of gastrointestinal tract, unspecifie d 12/13/2011 12/15/2013 Diarrhea 12/13/2011 01/04/2015 Cephalgia 08/15/2011 01/04/2015 Calculus of gallbladder with other cholecystitis, without mention of obstruction 10/18/2006 12/15/2013 Impaired fasting glucose 05/23/2006 017 Mixed hyperlipidemia 05/23/2006 12/21/2013 DM type 2 (diabetes mellitus, type 2) 05/18/2020 documented as of this encounter (statuses as of 03/13/2022) [facility]2020 History of Past illness Narrative* Problem Noted Date Resolved Date Cauda equina compression 04/27/2020 020 Lumbar stenosis 04/27/2020 05/18/2020 Neck pain, musculoskeletal 03/08/201903/29 Abdominal discomfort, epigastric 02/09/2016 03/29/2021 Pain in joint, lower leg 05/03/2015 020 Headache 10/30/2013 03/29/2021 Laryngitis 10/30/2013 01/04/2015 Internal hemorrhoids without mention of complica tion 12/13/2011 08/14/2021 Hemorrhage of gastrointestinal tract, unspecifie d 12/13/2011 12/15/2013 Diarrhea 12/13/2011 01/04/2015 Cephalgia 08/15/2011 01/04/2015 Calculus of gallbladder with other cholecystitis, without mention of obstruction 10/18/2006 12/15/2013 Impaired fasting glucose 05/23/2006 017 Mixed hyperlipidemia 05/23/2006 12/21/2013 DM type 2 (diabetes mellitus, type 2) 05/18/2020 documented as of this encounter (statuses as of 03/30/2022) [facility]2020 History of Past illness Narrative* Problem Noted Date Resolved Date Cauda equina compression 04/27/2020 020 Lumbar stenosis 04/27/2020 05/18/2020 Neck pain, musculoskeletal 03/08/201903/29 Abdominal discomfort, epigastric 02/09/2016 03/29/2021 Pain in joint, lower leg 05/03/2015 020 Headache 10/30/2013 03/29/2021 Laryngitis 10/30/2013 01/04/2015 Internal hemorrhoids without mention of complica tion 12/13/2011 08/14/2021 Hemorrhage of gastrointestinal tract, unspecifie d 12/13/2011 12/15/2013 Diarrhea 12/13/2011 01/04/2015 Cephalgia 08/15/2011 01/04/2015 Calculus of gallbladder with other cholecystitis, without mention of obstruction 10/18/2006 12/15/2013 Impaired fasting glucose 05/23/2006 017 Mixed hyperlipidemia 05/23/2006 12/21/2013 DM type 2 (diabetes mellitus, type 2) 05/18/2020 documented as of this encounter (statuses as of 04/10/2022) [facility] History of Past illness Narrative* Problem Noted Date Resolved Date Cauda equina compression 04/27/2020 020 Lumbar stenosis 04/27/2020 05/18/2020 Neck pain, musculoskeletal 03/08/201903/29 Abdominal discomfort, epigastric 02/09/2016 03/29/2021 Pain in joint, lower leg 05/03/2015 020 Headache 10/30/2013 03/29/2021 Laryngitis 10/30/2013 01/04/2015 Internal hemorrhoids without mention of complica tion 12/13/2011 08/14/2021 Hemorrhage of gastrointestinal tract, unspecifie d 12/13/2011 12/15/2013 Diarrhea 12/13/2011 01/04/2015 Cephalgia 08/15/2011 01/04/2015 Calculus of gallbladder with other cholecystitis, without mention of obstruction 10/18/2006 12/15/2013 Impaired fasting glucose 05/23/2006 017 Mixed hyperlipidemia 05/23/2006 12/21/2013 DM type 2 (diabetes mellitus, type 2) 05/18/2020 documented as of this encounter (statuses as of 04/11/2022) [facility] History of Past illness Narrative* Problem Noted Date Resolved Date Cauda equina compression 04/27/2020 020 Lumbar stenosis 04/27/2020 05/18/2020 Neck pain, musculoskeletal 03/08/201903/29 Abdominal discomfort, epigastric 02/09/2016 03/29/2021 Pain in joint, lower leg 05/03/2015 020 Headache 10/30/2013 03/29/2021 Laryngitis 10/30/2013 01/04/2015 Internal hemorrhoids without mention of complica tion 12/13/2011 08/14/2021 Hemorrhage of gastrointestinal tract, unspecifie d 12/13/2011 12/15/2013 Diarrhea 12/13/2011 01/04/2015 Cephalgia 08/15/2011 01/04/2015 Calculus of gallbladder with other cholecystitis, without mention of obstruction 10/18/2006 12/15/2013 Impaired fasting glucose 05/23/2006 017 Mixed hyperlipidemia 05/23/2006 12/21/2013 DM type 2 (diabetes mellitus, type 2) 05/18/2020 documented as of this encounter (statuses as of 04/17/2022) [facility] History of Past illness Narrative* Problem Noted Date Resolved Date Cauda equina compression 04/27/2020 020 Lumbar stenosis 04/27/2020 05/18/2020 Neck pain, musculoskeletal 03/08/201903/29 Abdominal discomfort, epigastric 02/09/2016 03/29/2021 Pain in joint, lower leg 05/03/2015 020 Headache 10/30/2013 03/29/2021 Laryngitis 10/30/2013 01/04/2015 Internal hemorrhoids without mention of complica tion 12/13/2011 08/14/2021 Hemorrhage of gastrointestinal tract, unspecifie d 12/13/2011 12/15/2013 Diarrhea 12/13/2011 01/04/2015 Cephalgia 08/15/2011 01/04/2015 Calculus of gallbladder with other cholecystitis, without mention of obstruction 10/18/2006 12/15/2013 Impaired fasting glucose 05/23/2006 017 Mixed hyperlipidemia 05/23/2006 12/21/2013 DM type 2 (diabetes mellitus, type 2) 05/18/2020 documented as of this encounter (statuses as of 04/19/2022) [facility] History of Past illness Narrative* Problem Noted Date Resolved Date Cauda equina compression 04/27/2020 020 Lumbar stenosis 04/27/2020 05/18/2020 Neck pain, musculoskeletal 03/08/201903/29 Abdominal discomfort, epigastric 02/09/2016 03/29/2021 Pain in joint, lower leg 05/03/2015 020 Headache 10/30/2013 03/29/2021 Laryngitis 10/30/2013 01/04/2015 Internal hemorrhoids without mention of complica tion 12/13/2011 08/14/2021 Hemorrhage of gastrointestinal tract, unspecifie d 12/13/2011 12/15/2013 Diarrhea 12/13/2011 01/04/2015 Cephalgia 08/15/2011 01/04/2015 Calculus of gallbladder with other cholecystitis, without mention of obstruction 10/18/2006 12/15/2013 Impaired fasting glucose 05/23/2006 017 Mixed hyperlipidemia 05/23/2006 12/21/2013 DM type 2 (diabetes mellitus, type 2) 05/18/2020 documented as of this encounter (statuses as of 05/08/2022) [facility] History of Past illness Narrative* Problem Noted Date Resolved Date Cauda equina compression 04/27/2020 020 Lumbar stenosis 04/27/2020 05/18/2020 Neck pain, musculoskeletal 03/08/201903/29 Abdominal discomfort, epigastric 02/09/2016 03/29/2021 Pain in joint, lower leg 05/03/2015 020 Headache 10/30/2013 03/29/2021 Laryngitis 10/30/2013 01/04/2015 Internal hemorrhoids without mention of complica tion 12/13/2011 08/14/2021 Hemorrhage of gastrointestinal tract, unspecifie d 12/13/2011 12/15/2013 Diarrhea 12/13/2011 01/04/2015 Cephalgia 08/15/2011 01/04/2015 Calculus of gallbladder with other cholecystitis, without mention of obstruction 10/18/2006 12/15/2013 Impaired fasting glucose 05/23/2006 017 Mixed hyperlipidemia 05/23/2006 12/21/2013 DM type 2 (diabetes mellitus, type 2) 05/18/2020 documented as of this encounter (statuses as of 05/15/2022) [facility] History of Past illness Narrative* Problem Noted Date Resolved Date Cauda equina compression 04/27/2020 020 Lumbar stenosis 04/27/2020 05/18/2020 Neck pain, musculoskeletal 03/08/201903/29 Abdominal discomfort, epigastric 02/09/2016 03/29/2021 Pain in joint, lower leg 05/03/2015 020 Headache 10/30/2013 03/29/2021 Laryngitis 10/30/2013 01/04/2015 Internal hemorrhoids without mention of complica tion 12/13/2011 08/14/2021 Hemorrhage of gastrointestinal tract, unspecifie d 12/13/2011 12/15/2013 Diarrhea 12/13/2011 01/04/2015 Cephalgia 08/15/2011 01/04/2015 Calculus of gallbladder with other cholecystitis, without mention of obstruction 10/18/2006 12/15/2013 Impaired fasting glucose 05/23/2006 017 Mixed hyperlipidemia 05/23/2006 12/21/2013 DM type 2 (diabetes mellitus, type 2) 05/18/2020 documented as of this encounter (statuses as of 06/12/2022) [facility] History of Past illness Narrative* Problem Noted Date Resolved Date Cauda equina compression 04/27/2020 020 Lumbar stenosis 04/27/2020 05/18/2020 Neck pain, musculoskeletal 03/08/201903/29 Abdominal discomfort, epigastric 02/09/2016 03/29/2021 Pain in joint, lower leg 05/03/2015 020 Headache 10/30/2013 03/29/2021 Laryngitis 10/30/2013 01/04/2015 Internal hemorrhoids without mention of complica tion 12/13/2011 08/14/2021 Hemorrhage of gastrointestinal tract, unspecifie d 12/13/2011 12/15/2013 Diarrhea 12/13/2011 01/04/2015 Cephalgia 08/15/2011 01/04/2015 Calculus of gallbladder with other cholecystitis, without mention of obstruction 10/18/2006 12/15/2013 Impaired fasting glucose 05/23/2006 017 Mixed hyperlipidemia 05/23/2006 12/21/2013 DM type 2 (diabetes mellitus, type 2) 05/18/2020 documented as of this encounter (statuses as of 06/16/2022) [facility] History of Past illness Narrative* Problem Noted Date Resolved Date Cauda equina compression 04/27/2020 020 Lumbar stenosis 04/27/2020 05/18/2020 Neck pain, musculoskeletal 03/08/201903/29 Abdominal discomfort, epigastric 02/09/2016 03/29/2021 Pain in joint, lower leg 05/03/2015 020 Headache 10/30/2013 03/29/2021 Laryngitis 10/30/2013 01/04/2015 Internal hemorrhoids without mention of complica tion 12/13/2011 08/14/2021 Hemorrhage of gastrointestinal tract, unspecifie d 12/13/2011 12/15/2013 Diarrhea 12/13/2011 01/04/2015 Cephalgia 08/15/2011 01/04/2015 Calculus of gallbladder with other cholecystitis, without mention of obstruction 10/18/2006 12/15/2013 Impaired fasting glucose 05/23/2006 017 Mixed hyperlipidemia 05/23/2006 12/21/2013 DM type 2 (diabetes mellitus, type 2) 05/18/2020 documented as of this encounter (statuses as of 06/22/2022) [facility] History of Past illness Narrative* Problem Noted Date Resolved Date Cauda equina compression 04/27/2020 020 Lumbar stenosis 04/27/2020 05/18/2020 Neck pain, musculoskeletal 03/08/201903/29 Abdominal discomfort, epigastric 02/09/2016 03/29/2021 Pain in joint, lower leg 05/03/2015 020 Headache 10/30/2013 03/29/2021 Laryngitis 10/30/2013 01/04/2015 Internal hemorrhoids without mention of complica tion 12/13/2011 08/14/2021 Hemorrhage of gastrointestinal tract, unspecifie d 12/13/2011 12/15/2013 Diarrhea 12/13/2011 01/04/2015 Cephalgia 08/15/2011 01/04/2015 Calculus of gallbladder with other cholecystitis, without mention of obstruction 10/18/2006 12/15/2013 Impaired fasting glucose 05/23/2006 017 Mixed hyperlipidemia 05/23/2006 12/21/2013 DM type 2 (diabetes mellitus, type 2) 05/18/2020 documented as of this encounter (statuses as of 06/26/2022) [facility] History of Past illness Narrative* Problem Noted Date Resolved Date Cauda equina compression 04/27/2020 020 Lumbar stenosis 04/27/2020 05/18/2020 Neck pain, musculoskeletal 03/08/201903/29 Abdominal discomfort, epigastric 02/09/2016 03/29/2021 Pain in joint, lower leg 05/03/2015 020 Headache 10/30/2013 03/29/2021 Laryngitis 10/30/2013 01/04/2015 Internal hemorrhoids without mention of complica tion 12/13/2011 08/14/2021 Hemorrhage of gastrointestinal tract, unspecifie d 12/13/2011 12/15/2013 Diarrhea 12/13/2011 01/04/2015 Cephalgia 08/15/2011 01/04/2015 Calculus of gallbladder with other cholecystitis, without mention of obstruction 10/18/2006 12/15/2013 Impaired fasting glucose 05/23/2006 017 Mixed hyperlipidemia 05/23/2006 12/21/2013 DM type 2 (diabetes mellitus, type 2) 05/18/2020 documented as of this encounter (statuses as of 06/27/2022) [place] [address]-19-2020 History of Past illness Narrative* Problem Noted Date Resolved Date Cauda equina compression 04/27/2020 020 Lumbar stenosis 04/27/2020 05/18/2020 Neck pain, musculoskeletal 03/08/201903/29 Abdominal discomfort, epigastric 02/09/2016 03/29/2021 Pain in joint, lower leg 05/03/2015 020 Headache 10/30/2013 03/29/2021 Laryngitis 10/30/2013 01/04/2015 Internal hemorrhoids without mention of complica tion 12/13/2011 08/14/2021 Hemorrhage of gastrointestinal tract, unspecifie d 12/13/2011 12/15/2013 Diarrhea 12/13/2011 01/04/2015 Cephalgia 08/15/2011 01/04/2015 Calculus of gallbladder with other cholecystitis, without mention of obstruction 10/18/2006 12/15/2013 Impaired fasting glucose 05/23/2006 017 Mixed hyperlipidemia 05/23/2006 12/21/2013 DM type 2 (diabetes mellitus, type 2) 05/18/2020 documented as of this encounter (statuses as of 06/27/2022) [facility] History of Past illness Narrative* Problem Noted Date Resolved Date Cauda equina compression 04/27/2020 020 Lumbar stenosis 04/27/2020 05/18/2020 Neck pain, musculoskeletal 03/08/201903/29 Abdominal discomfort, epigastric 02/09/2016 03/29/2021 Pain in joint, lower leg 05/03/2015 020 Headache 10/30/2013 03/29/2021 Laryngitis 10/30/2013 01/04/2015 Internal hemorrhoids without mention of complica tion 12/13/2011 08/14/2021 Hemorrhage of gastrointestinal tract, unspecifie d 12/13/2011 12/15/2013 Diarrhea 12/13/2011 01/04/2015 Cephalgia 08/15/2011 01/04/2015 Calculus of gallbladder with other cholecystitis, without mention of obstruction 10/18/2006 12/15/2013 Impaired fasting glucose 05/23/2006 017 Mixed hyperlipidemia 05/23/2006 12/21/2013 DM type 2 (diabetes mellitus, type 2) 05/18/2020 documented as of this encounter (statuses as of 07/02/2022) [facility] History of Past illness Narrative* Problem Noted Date Resolved Date Cauda equina compression 04/27/2020 020 Lumbar stenosis 04/27/2020 05/18/2020 Neck pain, musculoskeletal 03/08/201903/29 Abdominal discomfort, epigastric 02/09/2016 03/29/2021 Pain in joint, lower leg 05/03/2015 020 Headache 10/30/2013 03/29/2021 Laryngitis 10/30/2013 01/04/2015 Internal hemorrhoids without mention of complica tion 12/13/2011 08/14/2021 Hemorrhage of gastrointestinal tract, unspecifie d 12/13/2011 12/15/2013 Diarrhea 12/13/2011 01/04/2015 Cephalgia 08/15/2011 01/04/2015 Calculus of gallbladder with other cholecystitis, without mention of obstruction 10/18/2006 12/15/2013 Impaired fasting glucose 05/23/2006 017 Mixed hyperlipidemia 05/23/2006 12/21/2013 DM type 2 (diabetes mellitus, type 2) 05/18/2020 documented as of this encounter (statuses as of 07/04/2022) [facility]2020 History of Past illness Narrative* Problem Noted Date Resolved Date Cauda equina compression 04/27/2020 020 Lumbar stenosis 04/27/2020 05/18/2020 Neck pain, musculoskeletal 03/08/201903/29 Abdominal discomfort, epigastric 02/09/2016 03/29/2021 Pain in joint, lower leg 05/03/2015 020 Headache 10/30/2013 03/29/2021 Laryngitis 10/30/2013 01/04/2015 Internal hemorrhoids without mention of complica tion 12/13/2011 08/14/2021 Hemorrhage of gastrointestinal tract, unspecifie d 12/13/2011 12/15/2013 Diarrhea 12/13/2011 01/04/2015 Cephalgia 08/15/2011 01/04/2015 Calculus of gallbladder with other cholecystitis, without mention of obstruction 10/18/2006 12/15/2013 Impaired fasting glucose 05/23/2006 017 Mixed hyperlipidemia 05/23/2006 12/21/2013 DM type 2 (diabetes mellitus, type 2) 05/18/2020 documented as of this encounter (statuses as of 07/05/2022) [facility] History of Past illness Narrative* Problem Noted Date Resolved Date Cauda equina compression 04/27/2020 020 Lumbar stenosis 04/27/2020 05/18/2020 Neck pain, musculoskeletal 03/08/201903/29 Abdominal discomfort, epigastric 02/09/2016 03/29/2021 Pain in joint, lower leg 05/03/2015 020 Headache 10/30/2013 03/29/2021 Laryngitis 10/30/2013 01/04/2015 Internal hemorrhoids without mention of complica tion 12/13/2011 08/14/2021 Hemorrhage of gastrointestinal tract, unspecifie d 12/13/2011 12/15/2013 Diarrhea 12/13/2011 01/04/2015 Cephalgia 08/15/2011 01/04/2015 Calculus of gallbladder with other cholecystitis, without mention of obstruction 10/18/2006 12/15/2013 Impaired fasting glucose 05/23/2006 017 Mixed hyperlipidemia 05/23/2006 12/21/2013 DM type 2 (diabetes mellitus, type 2) 05/18/2020 documented as of this encounter (statuses as of 07/09/2022) [facility] History of Past illness Narrative* Problem Noted Date Resolved Date Cauda equina compression 04/27/2020 020 Lumbar stenosis 04/27/2020 05/18/2020 Neck pain, musculoskeletal 03/08/201903/29 Abdominal discomfort, epigastric 02/09/2016 03/29/2021 Pain in joint, lower leg 05/03/2015 020 Headache 10/30/2013 03/29/2021 Laryngitis 10/30/2013 01/04/2015 Internal hemorrhoids without mention of complica tion 12/13/2011 08/14/2021 Hemorrhage of gastrointestinal tract, unspecifie d 12/13/2011 12/15/2013 Diarrhea 12/13/2011 01/04/2015 Cephalgia 08/15/2011 01/04/2015 Calculus of gallbladder with other cholecystitis, without mention of obstruction 10/18/2006 12/15/2013 Impaired fasting glucose 05/23/2006 017 Mixed hyperlipidemia 05/23/2006 12/21/2013 DM type 2 (diabetes mellitus, type 2) 05/18/2020 documented as of this encounter (statuses as of 07/13/2022) [facility] History of Past illness Narrative* Problem Noted Date Resolved Date Cauda equina compression 04/27/2020 020 Lumbar stenosis 04/27/2020 05/18/2020 Neck pain, musculoskeletal 03/08/201903/29 Abdominal discomfort, epigastric 02/09/2016 03/29/2021 Pain in joint, lower leg 05/03/2015 020 Headache 10/30/2013 03/29/2021 Laryngitis 10/30/2013 01/04/2015 Internal hemorrhoids without mention of complica tion 12/13/2011 08/14/2021 Hemorrhage of gastrointestinal tract, unspecifie d 12/13/2011 12/15/2013 Diarrhea 12/13/2011 01/04/2015 Cephalgia 08/15/2011 01/04/2015 Calculus of gallbladder with other cholecystitis, without mention of obstruction 10/18/2006 12/15/2013 Impaired fasting glucose 05/23/2006 017 Mixed hyperlipidemia 05/23/2006 12/21/2013 DM type 2 (diabetes mellitus, type 2) 05/18/2020 documented as of this encounter (statuses as of 07/20/2022) [facility] History of Past illness Narrative* Problem Noted Date Resolved Date Cauda equina compression 04/27/2020 020 Lumbar stenosis 04/27/2020 05/18/2020 Neck pain, musculoskeletal 03/08/201903/29 Abdominal discomfort, epigastric 02/09/2016 03/29/2021 Pain in joint, lower leg 05/03/2015 020 Headache 10/30/2013 03/29/2021 Laryngitis 10/30/2013 01/04/2015 Internal hemorrhoids without mention of complica tion 12/13/2011 08/14/2021 Hemorrhage of gastrointestinal tract, unspecifie d 12/13/2011 12/15/2013 Diarrhea 12/13/2011 01/04/2015 Cephalgia 08/15/2011 01/04/2015 Calculus of gallbladder with other cholecystitis, without mention of obstruction 10/18/2006 12/15/2013 Impaired fasting glucose 05/23/2006 017 Mixed hyperlipidemia 05/23/2006 12/21/2013 DM type 2 (diabetes mellitus, type 2) 05/18/2020 documented as of this encounter (statuses as of 08/06/2022) [facility] History of Past illness Narrative* Problem Noted Date Resolved Date Cauda equina compression 04/27/2020 020 Lumbar stenosis 04/27/2020 05/18/2020 Neck pain, musculoskeletal 03/08/201903/29 Abdominal discomfort, epigastric 02/09/2016 03/29/2021 Pain in joint, lower leg 05/03/2015 020 Headache 10/30/2013 03/29/2021 Laryngitis 10/30/2013 01/04/2015 Internal hemorrhoids without mention of complica tion 12/13/2011 08/14/2021 Hemorrhage of gastrointestinal tract, unspecifie d 12/13/2011 12/15/2013 Diarrhea 12/13/2011 01/04/2015 Cephalgia 08/15/2011 01/04/2015 Calculus of gallbladder with other cholecystitis, without mention of obstruction 10/18/2006 12/15/2013 Impaired fasting glucose 05/23/2006 017 Mixed hyperlipidemia 05/23/2006 12/21/2013 DM type 2 (diabetes mellitus, type 2) 05/18/2020 documented as of this encounter (statuses as of 08/10/2022) [facility] History of Past illness Narrative* Problem Noted Date Resolved Date Cauda equina compression 04/27/2020 020 Lumbar stenosis 04/27/2020 05/18/2020 Neck pain, musculoskeletal 03/08/201903/29 Abdominal discomfort, epigastric 02/09/2016 03/29/2021 Pain in joint, lower leg 05/03/2015 020 Headache 10/30/2013 03/29/2021 Laryngitis 10/30/2013 01/04/2015 Internal hemorrhoids without mention of complica tion 12/13/2011 08/14/2021 Hemorrhage of gastrointestinal tract, unspecifie d 12/13/2011 12/15/2013 Diarrhea 12/13/2011 01/04/2015 Cephalgia 08/15/2011 01/04/2015 Calculus of gallbladder with other cholecystitis, without mention of obstruction 10/18/2006 12/15/2013 Impaired fasting glucose 05/23/2006 017 Mixed hyperlipidemia 05/23/2006 12/21/2013 DM type 2 (diabetes mellitus, type 2) 05/18/2020 documented as of this encounter (statuses as of 08/24/2022) [facility] History of Past illness Narrative* Problem Noted Date Resolved Date Cauda equina compression 04/27/2020 020 Lumbar stenosis 04/27/2020 05/18/2020 Neck pain, musculoskeletal 03/08/201903/29 Abdominal discomfort, epigastric 02/09/2016 03/29/2021 Pain in joint, lower leg 05/03/2015 020 Headache 10/30/2013 03/29/2021 Laryngitis 10/30/2013 01/04/2015 Internal hemorrhoids without mention of complica tion 12/13/2011 08/14/2021 Hemorrhage of gastrointestinal tract, unspecifie d 12/13/2011 12/15/2013 Diarrhea 12/13/2011 01/04/2015 Cephalgia 08/15/2011 01/04/2015 Calculus of gallbladder with other cholecystitis, without mention of obstruction 10/18/2006 12/15/2013 Impaired fasting glucose 05/23/2006 017 Mixed hyperlipidemia 05/23/2006 12/21/2013 DM type 2 (diabetes mellitus, type 2) 05/18/2020 documented as of this encounter (statuses as of 08/25/2022) [facility] History of Past illness Narrative* Problem Noted Date Resolved Date Cauda equina compression 04/27/2020 020 Lumbar stenosis 04/27/2020 05/18/2020 Neck pain, musculoskeletal 03/08/201903/29 Abdominal discomfort, epigastric 02/09/2016 03/29/2021 Pain in joint, lower leg 05/03/2015 020 Headache 10/30/2013 03/29/2021 Laryngitis 10/30/2013 01/04/2015 Internal hemorrhoids without mention of complica tion 12/13/2011 08/14/2021 Hemorrhage of gastrointestinal tract, unspecifie d 12/13/2011 12/15/2013 Diarrhea 12/13/2011 01/04/2015 Cephalgia 08/15/2011 01/04/2015 Calculus of gallbladder with other cholecystitis, without mention of obstruction 10/18/2006 12/15/2013 Impaired fasting glucose 05/23/2006 017 Mixed hyperlipidemia 05/23/2006 12/21/2013 DM type 2 (diabetes mellitus, type 2) 05/18/2020 documented as of this encounter (statuses as of 08/25/2022) [facility] History of Past illness Narrative* Problem Noted Date Resolved Date Cauda equina compression 04/27/2020 020 Lumbar stenosis 04/27/2020 05/18/2020 Neck pain, musculoskeletal 03/08/201903/29 Abdominal discomfort, epigastric 02/09/2016 03/29/2021 Pain in joint, lower leg 05/03/2015 020 Headache 10/30/2013 03/29/2021 Laryngitis 10/30/2013 01/04/2015 Internal hemorrhoids without mention of complica tion 12/13/2011 08/14/2021 Hemorrhage of gastrointestinal tract, unspecifie d 12/13/2011 12/15/2013 Diarrhea 12/13/2011 01/04/2015 Cephalgia 08/15/2011 01/04/2015 Calculus of gallbladder with other cholecystitis, without mention of obstruction 10/18/2006 12/15/2013 Impaired fasting glucose 05/23/2006 017 Mixed hyperlipidemia 05/23/2006 12/21/2013 DM type 2 (diabetes mellitus, type 2) 05/18/2020 documented as of this encounter (statuses as of 09/12/2022) [facility]2020 History of Past illness Narrative* Problem Noted Date Resolved Date Cauda equina compression 04/27/2020 020 Lumbar stenosis 04/27/2020 05/18/2020 Neck pain, musculoskeletal 03/08/201903/29 Abdominal discomfort, epigastric 02/09/2016 03/29/2021 Pain in joint, lower leg 05/03/2015 020 Headache 10/30/2013 03/29/2021 Laryngitis 10/30/2013 01/04/2015 Internal hemorrhoids without mention of complica tion 12/13/2011 08/14/2021 Hemorrhage of gastrointestinal tract, unspecifie d 12/13/2011 12/15/2013 Diarrhea 12/13/2011 01/04/2015 Cephalgia 08/15/2011 01/04/2015 Calculus of gallbladder with other cholecystitis, without mention of obstruction 10/18/2006 12/15/2013 Impaired fasting glucose 05/23/2006 017 Mixed hyperlipidemia 05/23/2006 12/21/2013 DM type 2 (diabetes mellitus, type 2) 05/18/2020 documented as of this encounter (statuses as of 09/13/2022) [facility] History of Past illness Narrative* Problem Noted Date Resolved Date Cauda equina compression 04/27/2020 020 Lumbar stenosis 04/27/2020 05/18/2020 Neck pain, musculoskeletal 03/08/201903/29 Abdominal discomfort, epigastric 02/09/2016 03/29/2021 Pain in joint, lower leg 05/03/2015 020 Headache 10/30/2013 03/29/2021 Laryngitis 10/30/2013 01/04/2015 Internal hemorrhoids without mention of complica tion 12/13/2011 08/14/2021 Hemorrhage of gastrointestinal tract, unspecifie d 12/13/2011 12/15/2013 Diarrhea 12/13/2011 01/04/2015 Cephalgia 08/15/2011 01/04/2015 Calculus of gallbladder with other cholecystitis, without mention of obstruction 10/18/2006 12/15/2013 Impaired fasting glucose 05/23/2006 017 Mixed hyperlipidemia 05/23/2006 12/21/2013 DM type 2 (diabetes mellitus, type 2) 05/18/2020 documented as of this encounter (statuses as of 09/19/2022) [facility] History of Past illness Narrative* Problem Noted Date Resolved Date Cauda equina compression 04/27/2020 020 Lumbar stenosis 04/27/2020 05/18/2020 Neck pain, musculoskeletal 03/08/201903/29 Abdominal discomfort, epigastric 02/09/2016 03/29/2021 Pain in joint, lower leg 05/03/2015 020 Headache 10/30/2013 03/29/2021 Laryngitis 10/30/2013 01/04/2015 Internal hemorrhoids without mention of complica tion 12/13/2011 08/14/2021 Hemorrhage of gastrointestinal tract, unspecifie d 12/13/2011 12/15/2013 Diarrhea 12/13/2011 01/04/2015 Cephalgia 08/15/2011 01/04/2015 Calculus of gallbladder with other cholecystitis, without mention of obstruction 10/18/2006 12/15/2013 Impaired fasting glucose 05/23/2006 017 Mixed hyperlipidemia 05/23/2006 12/21/2013 DM type 2 (diabetes mellitus, type 2) 05/18/2020 documented as of this encounter (statuses as of 09/19/2022) [facility] History of Past illness Narrative* Problem Noted Date Resolved Date Cauda equina compression 04/27/2020 020 Lumbar stenosis 04/27/2020 05/18/2020 Neck pain, musculoskeletal 03/08/201903/29 Abdominal discomfort, epigastric 02/09/2016 03/29/2021 Pain in joint, lower leg 05/03/2015 020 Headache 10/30/2013 03/29/2021 Laryngitis 10/30/2013 01/04/2015 Internal hemorrhoids without mention of complica tion 12/13/2011 08/14/2021 Hemorrhage of gastrointestinal tract, unspecifie d 12/13/2011 12/15/2013 Diarrhea 12/13/2011 01/04/2015 Cephalgia 08/15/2011 01/04/2015 Calculus of gallbladder with other cholecystitis, without mention of obstruction 10/18/2006 12/15/2013 Impaired fasting glucose 05/23/2006 017 Mixed hyperlipidemia 05/23/2006 12/21/2013 DM type 2 (diabetes mellitus, type 2) 05/18/2020 documented as of this encounter (statuses as of 09/23/2022) [facility] History of Past illness Narrative* Problem Noted Date Resolved Date Cauda equina compression 04/27/2020 020 Lumbar stenosis 04/27/2020 05/18/2020 Neck pain, musculoskeletal 03/08/201903/29 Abdominal discomfort, epigastric 02/09/2016 03/29/2021 Pain in joint, lower leg 05/03/2015 020 Headache 10/30/2013 03/29/2021 Laryngitis 10/30/2013 01/04/2015 Internal hemorrhoids without mention of complica tion 12/13/2011 08/14/2021 Hemorrhage of gastrointestinal tract, unspecifie d 12/13/2011 12/15/2013 Diarrhea 12/13/2011 01/04/2015 Cephalgia 08/15/2011 01/04/2015 Calculus of gallbladder with other cholecystitis, without mention of obstruction 10/18/2006 12/15/2013 Impaired fasting glucose 05/23/2006 017 Mixed hyperlipidemia 05/23/2006 12/21/2013 DM type 2 (diabetes mellitus, type 2) 05/18/2020 documented as of this encounter (statuses as of 10/01/2022) [facility] History of Past illness Narrative* Problem Noted Date Resolved Date Cauda equina compression 04/27/2020 020 Lumbar stenosis 04/27/2020 05/18/2020 Neck pain, musculoskeletal 03/08/201903/29 Abdominal discomfort, epigastric 02/09/2016 03/29/2021 Pain in joint, lower leg 05/03/2015 020 Headache 10/30/2013 03/29/2021 Laryngitis 10/30/2013 01/04/2015 Internal hemorrhoids without mention of complica tion 12/13/2011 08/14/2021 Hemorrhage of gastrointestinal tract, unspecifie d 12/13/2011 12/15/2013 Diarrhea 12/13/2011 01/04/2015 Cephalgia 08/15/2011 01/04/2015 Calculus of gallbladder with other cholecystitis, without mention of obstruction 10/18/2006 12/15/2013 Impaired fasting glucose 05/23/2006 017 Mixed hyperlipidemia 05/23/2006 12/21/2013 DM type 2 (diabetes mellitus, type 2) 05/18/2020 documented as of this encounter (statuses as of 10/08/2022) [facility] History of Past illness Narrative* Problem Noted Date Resolved Date Cauda equina compression 04/27/2020 020 Lumbar stenosis 04/27/2020 05/18/2020 Neck pain, musculoskeletal 03/08/201903/29 Abdominal discomfort, epigastric 02/09/2016 03/29/2021 Pain in joint, lower leg 05/03/2015 020 Headache 10/30/2013 03/29/2021 Laryngitis 10/30/2013 01/04/2015 Internal hemorrhoids without mention of complica tion 12/13/2011 08/14/2021 Hemorrhage of gastrointestinal tract, unspecifie d 12/13/2011 12/15/2013 Diarrhea 12/13/2011 01/04/2015 Cephalgia 08/15/2011 01/04/2015 Calculus of gallbladder with other cholecystitis, without mention of obstruction 10/18/2006 12/15/2013 Impaired fasting glucose 05/23/2006 017 Mixed hyperlipidemia 05/23/2006 12/21/2013 DM type 2 (diabetes mellitus, type 2) 05/18/2020 documented as of this encounter (statuses as of 11/22/2022) [facility] History of Past illness Narrative* Problem Noted Date Resolved Date Cauda equina compression 04/27/2020 020 Lumbar stenosis 04/27/2020 05/18/2020 Neck pain, musculoskeletal 03/08/201903/29 Abdominal discomfort, epigastric 02/09/2016 03/29/2021 Pain in joint, lower leg 05/03/2015 020 Headache 10/30/2013 03/29/2021 Laryngitis 10/30/2013 01/04/2015 Internal hemorrhoids without mention of complica tion 12/13/2011 08/14/2021 Hemorrhage of gastrointestinal tract, unspecifie d 12/13/2011 12/15/2013 Diarrhea 12/13/2011 01/04/2015 Cephalgia 08/15/2011 01/04/2015 Calculus of gallbladder with other cholecystitis, without mention of obstruction 10/18/2006 12/15/2013 Impaired fasting glucose 05/23/2006 017 Mixed hyperlipidemia 05/23/2006 12/21/2013 DM type 2 (diabetes mellitus, type 2) 05/18/2020 documented as of this encounter (statuses as of 11/22/2022) [facility] History of Past illness Narrative* Problem Noted Date Resolved Date Cauda equina compression 04/27/2020 020 Lumbar stenosis 04/27/2020 05/18/2020 Neck pain, musculoskeletal 03/08/201903/29 Abdominal discomfort, epigastric 02/09/2016 03/29/2021 Pain in joint, lower leg 05/03/2015 020 Headache 10/30/2013 03/29/2021 Laryngitis 10/30/2013 01/04/2015 Internal hemorrhoids without mention of complica tion 12/13/2011 08/14/2021 Hemorrhage of gastrointestinal tract, unspecifie d 12/13/2011 12/15/2013 Diarrhea 12/13/2011 01/04/2015 Cephalgia 08/15/2011 01/04/2015 Calculus of gallbladder with other cholecystitis, without mention of obstruction 10/18/2006 12/15/2013 Impaired fasting glucose 05/23/2006 017 Mixed hyperlipidemia 05/23/2006 12/21/2013 DM type 2 (diabetes mellitus, type 2) 05/18/2020 documented as of this encounter (statuses as of 11/26/2022) [facility] History of Past illness Narrative* Problem Noted Date Resolved Date Cauda equina compression 04/27/2020 020 Lumbar stenosis 04/27/2020 05/18/2020 Neck pain, musculoskeletal 03/08/201903/29 Abdominal discomfort, epigastric 02/09/2016 03/29/2021 Pain in joint, lower leg 05/03/2015 020 Headache 10/30/2013 03/29/2021 Laryngitis 10/30/2013 01/04/2015 Internal hemorrhoids without mention of complica tion 12/13/2011 08/14/2021 Hemorrhage of gastrointestinal tract, unspecifie d 12/13/2011 12/15/2013 Diarrhea 12/13/2011 01/04/2015 Cephalgia 08/15/2011 01/04/2015 Calculus of gallbladder with other cholecystitis, without mention of obstruction 10/18/2006 12/15/2013 Impaired fasting glucose 05/23/2006 017 Mixed hyperlipidemia 05/23/2006 12/21/2013 DM type 2 (diabetes mellitus, type 2) 05/18/2020 documented as of this encounter (statuses as of 12/05/2022) [facility] History of Past illness Narrative* Problem Noted Date Resolved Date Cauda equina compression 04/27/2020 020 Lumbar stenosis 04/27/2020 05/18/2020 Neck pain, musculoskeletal 03/08/201903/29 Abdominal discomfort, epigastric 02/09/2016 03/29/2021 Pain in joint, lower leg 05/03/2015 020 Headache 10/30/2013 03/29/2021 Laryngitis 10/30/2013 01/04/2015 Internal hemorrhoids without mention of complica tion 12/13/2011 08/14/2021 Hemorrhage of gastrointestinal tract, unspecifie d 12/13/2011 12/15/2013 Diarrhea 12/13/2011 01/04/2015 Cephalgia 08/15/2011 01/04/2015 Calculus of gallbladder with other cholecystitis, without mention of obstruction 10/18/2006 12/15/2013 Impaired fasting glucose 05/23/2006 017 Mixed hyperlipidemia 05/23/2006 12/21/2013 DM type 2 (diabetes mellitus, type 2) 05/18/2020 documented as of this encounter (statuses as of 12/10/2022) [facility] History of Past illness Narrative* Problem Noted Date Resolved Date Cauda equina compression 04/27/2020 020 Lumbar stenosis 04/27/2020 05/18/2020 Neck pain, musculoskeletal 03/08/201903/29 Abdominal discomfort, epigastric 02/09/2016 03/29/2021 Pain in joint, lower leg 05/03/2015 020 Headache 10/30/2013 03/29/2021 Laryngitis 10/30/2013 01/04/2015 Internal hemorrhoids without mention of complica tion 12/13/2011 08/14/2021 Hemorrhage of gastrointestinal tract, unspecifie d 12/13/2011 12/15/2013 Diarrhea 12/13/2011 01/04/2015 Cephalgia 08/15/2011 01/04/2015 Calculus of gallbladder with other cholecystitis, without mention of obstruction 10/18/2006 12/15/2013 Impaired fasting glucose 05/23/2006 017 Mixed hyperlipidemia 05/23/2006 12/21/2013 DM type 2 (diabetes mellitus, type 2) 05/18/2020 documented as of this encounter (statuses as of 12/11/2022) [facility] History of Past illness Narrative* Problem Noted Date Resolved Date Cauda equina compression 04/27/2020 020 Lumbar stenosis 04/27/2020 05/18/2020 Neck pain, musculoskeletal 03/08/201903/29 Abdominal discomfort, epigastric 02/09/2016 03/29/2021 Pain in joint, lower leg 05/03/2015 020 Headache 10/30/2013 03/29/2021 Laryngitis 10/30/2013 01/04/2015 Internal hemorrhoids without mention of complica tion 12/13/2011 08/14/2021 Hemorrhage of gastrointestinal tract, unspecifie d 12/13/2011 12/15/2013 Diarrhea 12/13/2011 01/04/2015 Cephalgia 08/15/2011 01/04/2015 Calculus of gallbladder with other cholecystitis, without mention of obstruction 10/18/2006 12/15/2013 Impaired fasting glucose 05/23/2006 017 Mixed hyperlipidemia 05/23/2006 12/21/2013 DM type 2 (diabetes mellitus, type 2) 05/18/2020 documented as of this encounter (statuses as of 12/12/2022) [facility] History of Past illness Narrative* Problem Noted Date Resolved Date Cauda equina compression 04/27/2020 020 Lumbar stenosis 04/27/2020 05/18/2020 Neck pain, musculoskeletal 03/08/201903/29 Abdominal discomfort, epigastric 02/09/2016 03/29/2021 Pain in joint, lower leg 05/03/2015 020 Headache 10/30/2013 03/29/2021 Laryngitis 10/30/2013 01/04/2015 Internal hemorrhoids without mention of complica tion 12/13/2011 08/14/2021 Hemorrhage of gastrointestinal tract, unspecifie d 12/13/2011 12/15/2013 Diarrhea 12/13/2011 01/04/2015 Cephalgia 08/15/2011 01/04/2015 Calculus of gallbladder with other cholecystitis, without mention of obstruction 10/18/2006 12/15/2013 Impaired fasting glucose 05/23/2006 017 Mixed hyperlipidemia 05/23/2006 12/21/2013 DM type 2 (diabetes mellitus, type 2) 05/18/2020 documented as of this encounter (statuses as of 12/14/2022) [facility] of Past illness Narrative* Problem Noted Date Resolved Date Cauda equina compression 04/27/2020 020 Lumbar stenosis 04/27/2020 05/18/2020 Neck pain, musculoskeletal 03/08/201903/29 Abdominal discomfort, epigastric 02/09/2016 03/29/2021 Pain in joint, lower leg 05/03/2015 020 Headache 10/30/2013 03/29/2021 Laryngitis 10/30/2013 01/04/2015 Internal hemorrhoids without mention of complica tion 12/13/2011 08/14/2021 Hemorrhage of gastrointestinal tract, unspecifie d 12/13/2011 12/15/2013 Diarrhea 12/13/2011 01/04/2015 Cephalgia 08/15/2011 01/04/2015 Calculus of gallbladder with other cholecystitis, without mention of obstruction 10/18/2006 12/15/2013 Impaired fasting glucose 05/23/2006 017 Mixed hyperlipidemia 05/23/2006 12/21/2013 DM type 2 (diabetes mellitus, type 2) 05/18/2020 documented as of this encounter (statuses as of 12/19/2022) [facility] History of Past illness Narrative* Problem Noted Date Resolved Date Cauda equina compression 04/27/2020 020 Lumbar stenosis 04/27/2020 05/18/2020 Neck pain, musculoskeletal 03/08/201903/29 Abdominal discomfort, epigastric 02/09/2016 03/29/2021 Pain in joint, lower leg 05/03/2015 020 Headache 10/30/2013 03/29/2021 Laryngitis 10/30/2013 01/04/2015 Internal hemorrhoids without mention of complica tion 12/13/2011 08/14/2021 Hemorrhage of gastrointestinal tract, unspecifie d 12/13/2011 12/15/2013 Diarrhea 12/13/2011 01/04/2015 Cephalgia 08/15/2011 01/04/2015 Calculus of gallbladder with other cholecystitis, without mention of obstruction 10/18/2006 12/15/2013 Impaired fasting glucose 05/23/2006 017 Mixed hyperlipidemia 05/23/2006 12/21/2013 DM type 2 (diabetes mellitus, type 2) 05/18/2020 documented as of this encounter (statuses as of 12/22/2022) [facility]08-19-2020 History of Past illness Narrative* Problem Noted Date Resolved Date Cauda equina compression 04/27/2020 020 Lumbar stenosis 04/27/2020 05/18/2020 Neck pain, musculoskeletal 03/08/201903/29 Abdominal discomfort, epigastric 02/09/2016 03/29/2021 Pain in joint, lower leg 05/03/2015 020 Headache 10/30/2013 03/29/2021 Laryngitis 10/30/2013 01/04/2015 Internal hemorrhoids without mention of complica tion 12/13/2011 08/14/2021 Hemorrhage of gastrointestinal tract, unspecifie d 12/13/2011 12/15/2013 Diarrhea 12/13/2011 01/04/2015 Cephalgia 08/15/2011 01/04/2015 Calculus of gallbladder with other cholecystitis, without mention of obstruction 10/18/2006 12/15/2013 Impaired fasting glucose 05/23/2006 017 Mixed hyperlipidemia 05/23/2006 12/21/2013 DM type 2 (diabetes mellitus, type 2) 05/18/2020 documented as of this encounter (statuses as of 01/03/2023) [facility]08[facility]2020 History of Past illness Narrative* Problem Noted Date Resolved Date Cauda equina compression 04/27/2020 020 Lumbar stenosis 04/27/2020 05/18/2020 Neck pain, musculoskeletal 03/08/201903/29 Abdominal discomfort, epigastric 02/09/2016 03/29/2021 Pain in joint, lower leg 05/03/2015 020 Headache 10/30/2013 03/29/2021 Laryngitis 10/30/2013 01/04/2015 Internal hemorrhoids without mention of complica tion 12/13/2011 08/14/2021 Hemorrhage of gastrointestinal tract, unspecifie d 12/13/2011 12/15/2013 Diarrhea 12/13/2011 01/04/2015 Cephalgia 08/15/2011 01/04/2015 Calculus of gallbladder with other cholecystitis, without mention of obstruction 10/18/2006 12/15/2013 Impaired fasting glucose 05/23/2006 017 Mixed hyperlipidemia 05/23/2006 12/21/2013 DM type 2 (diabetes mellitus, type 2) 05/18/2020 documented as of this encounter (statuses as of 01/07/2023) [facility]2020 History of Past illness Narrative* Problem Noted Date Resolved Date Cauda equina compression 04/27/2020 020 Lumbar stenosis 04/27/2020 05/18/2020 Neck pain, musculoskeletal 03/08/201903/29 Abdominal discomfort, epigastric 02/09/2016 03/29/2021 Pain in joint, lower leg 05/03/2015 020 Headache 10/30/2013 03/29/2021 Laryngitis 10/30/2013 01/04/2015 Internal hemorrhoids without mention of complica tion 12/13/2011 08/14/2021 Hemorrhage of gastrointestinal tract, unspecifie d 12/13/2011 12/15/2013 Diarrhea 12/13/2011 01/04/2015 Cephalgia 08/15/2011 01/04/2015 Calculus of gallbladder with other cholecystitis, without mention of obstruction 10/18/2006 12/15/2013 Impaired fasting glucose 05/23/2006 017 Mixed hyperlipidemia 05/23/2006 12/21/2013 DM type 2 (diabetes mellitus, type 2) 05/18/2020 documented as of this encounter (statuses as of 01/14/2023) [facility]2020 History of Past illness Narrative* Problem Noted Date Resolved Date Cauda equina compression 04/27/2020 020 Lumbar stenosis 04/27/2020 05/18/2020 Neck pain, musculoskeletal 03/08/201903/29 Abdominal discomfort, epigastric 02/09/2016 03/29/2021 Pain in joint, lower leg 05/03/2015 020 Headache 10/30/2013 03/29/2021 Laryngitis 10/30/2013 01/04/2015 Internal hemorrhoids without mention of complica tion 12/13/2011 08/14/2021 Hemorrhage of gastrointestinal tract, unspecifie d 12/13/2011 12/15/2013 Diarrhea 12/13/2011 01/04/2015 Cephalgia 08/15/2011 01/04/2015 Calculus of gallbladder with other cholecystitis, without mention of obstruction 10/18/2006 12/15/2013 Impaired fasting glucose 05/23/2006 017 Mixed hyperlipidemia 05/23/2006 12/21/2013 DM type 2 (diabetes mellitus, type 2) 05/18/2020 documented as of this encounter (statuses as of 02/08/2023) [facility]08[facility]2020 History of Past illness Narrative* Problem Noted Date Resolved Date Cauda equina compression 04/27/2020 020 Lumbar stenosis 04/27/2020 05/18/2020 Neck pain, musculoskeletal 03/08/201903/29 Abdominal discomfort, epigastric 02/09/2016 03/29/2021 Pain in joint, lower leg 05/03/2015 020 Headache 10/30/2013 03/29/2021 Laryngitis 10/30/2013 01/04/2015 Internal hemorrhoids without mention of complica tion 12/13/2011 08/14/2021 Hemorrhage of gastrointestinal tract, unspecifie d 12/13/2011 12/15/2013 Diarrhea 12/13/2011 01/04/2015 Cephalgia 08/15/2011 01/04/2015 Calculus of gallbladder with other cholecystitis, without mention of obstruction 10/18/2006 12/15/2013 Impaired fasting glucose 05/23/2006 017 Mixed hyperlipidemia 05/23/2006 12/21/2013 DM type 2 (diabetes mellitus, type 2) 05/18/2020 documented as of this encounter (statuses as of 03/11/2023) [facility]08[facility]2020 History of Past illness Narrative* Problem Noted Date Resolved Date Cauda equina compression 04/27/2020 020 Lumbar stenosis 04/27/2020 05/18/2020 Neck pain, musculoskeletal 03/08/201903/29 Abdominal discomfort, epigastric 02/09/2016 03/29/2021 Pain in joint, lower leg 05/03/2015 020 Headache 10/30/2013 03/29/2021 Laryngitis 10/30/2013 01/04/2015 Internal hemorrhoids without mention of complica tion 12/13/2011 08/14/2021 Hemorrhage of gastrointestinal tract, unspecifie d 12/13/2011 12/15/2013 Diarrhea 12/13/2011 01/04/2015 Cephalgia 08/15/2011 01/04/2015 Calculus of gallbladder with other cholecystitis, without mention of obstruction 10/18/2006 12/15/2013 Impaired fasting glucose 05/23/2006 017 Mixed hyperlipidemia 05/23/2006 12/21/2013 DM type 2 (diabetes mellitus, type 2) 05/18/2020 documented as of this encounter (statuses as of 03/12/2023) [facility]08[facility]2020 History of Past illness Narrative* Problem Noted Date Resolved Date Cauda equina compression 04/27/2020 020 Lumbar stenosis 04/27/2020 05/18/2020 Neck pain, musculoskeletal 03/08/201903/29 Abdominal discomfort, epigastric 02/09/2016 03/29/2021 Pain in joint, lower leg 05/03/2015 020 Headache 10/30/2013 03/29/2021 Laryngitis 10/30/2013 01/04/2015 Internal hemorrhoids without mention of complica tion 12/13/2011 08/14/2021 Hemorrhage of gastrointestinal tract, unspecifie d 12/13/2011 12/15/2013 Diarrhea 12/13/2011 01/04/2015 Cephalgia 08/15/2011 01/04/2015 Calculus of gallbladder with other cholecystitis, without mention of obstruction 10/18/2006 12/15/2013 Impaired fasting glucose 05/23/2006 017 Mixed hyperlipidemia 05/23/2006 12/21/2013 DM type 2 (diabetes mellitus, type 2) 05/18/2020 documented as of this encounter (statuses as of 03/15/2023) [facility]08[facility]2020 History of Past illness Narrative* Problem Noted Date Diagnosed Date Resolved Date Cauda equina compression 04/27/202005/2020 Lumbar stenosis 04/27/2020 05/18/2020 Neck pain, musculoskeletal 03/08/2019 0 03/29/2021 Abdominal discomfort, epigastric 02/09/2016 03/29/2021 Pain in joint, lower leg 05/03/201505/2020 Headache 10/30/2013 03/29/2021 Laryngitis 10/30/2013 01/04/2015 Internal hemorrhoids without mention of complication 12/13/2011 08/14/2021 Hemorrhage of gastrointestin al tract, unspecified 12/13/2011 12/15/2013 Diarrhea 12/13/2011 01/04/2015 Cephalgia 08/15/2011 01/04/2015 Calculus of gallbladder with other cholecystitis, without mention of obstruction 10/18/2006 12/15/2013 Impaired fasting glucose 05/23/2006 Mixed hyperlipidemia 05/23/2006 014 DM type 2 (diabetes mellitus, type 2) 05/18/2020 documented as of this encounter (statuses as of 04/25/2023) [facility]08[facility]2020 History of Past illness Narrative* Problem Noted Date Diagnosed Date Resolved Date Cauda equina compression 04/27/202005/2020 Lumbar stenosis 04/27/2020 05/18/2020 Neck pain, musculoskeletal 03/08/2019 0 03/29/2021 Abdominal discomfort, epigastric 02/09/2016 03/29/2021 Pain in joint, lower leg 05/03/201505/2020 Headache 10/30/2013 03/29/2021 Laryngitis 10/30/2013 01/04/2015 Internal hemorrhoids without mention of complication 12/13/2011 08/14/2021 Hemorrhage of gastrointestin al tract, unspecified 12/13/2011 12/15/2013 Diarrhea 12/13/2011 01/04/2015 Cephalgia 08/15/2011 01/04/2015 Calculus of gallbladder with other cholecystitis, without mention of obstruction 10/18/2006 12/15/2013 Impaired fasting glucose 05/23/2006 Mixed hyperlipidemia 05/23/2006 014 DM type 2 (diabetes mellitus, type 2) 05/18/2020 documented as of this encounter (statuses as of 04/25/2023) [facility]2020 History of Past illness Narrative* Problem Noted Date Diagnosed Date Resolved Date Cauda equina compression 04/27/202005/2020 Lumbar stenosis 04/27/2020 05/18/2020 Neck pain, musculoskeletal 03/08/2019 0 03/29/2021 Abdominal discomfort, epigastric 02/09/2016 03/29/2021 Pain in joint, lower leg 05/03/201505/2020 Headache 10/30/2013 03/29/2021 Laryngitis 10/30/2013 01/04/2015 Internal hemorrhoids without mention of complication 12/13/2011 08/14/2021 Hemorrhage of gastrointestin al tract, unspecified 12/13/2011 12/15/2013 Diarrhea 12/13/2011 01/04/2015 Cephalgia 08/15/2011 01/04/2015 Calculus of gallbladder with other cholecystitis, without mention of obstruction 10/18/2006 12/15/2013 Impaired fasting glucose 05/23/2006 Mixed hyperlipidemia 05/23/2006 014 DM type 2 (diabetes mellitus, type 2) 05/18/2020 documented as of this encounter (statuses as of 05/24/2023) [facility]08[facility]2020 History of Past illness Narrative* Problem Noted Date Diagnosed Date Resolved Date Cauda equina compression 04/27/202005/2020 Lumbar stenosis 04/27/2020 05/18/2020 Neck pain, musculoskeletal 03/08/2019 0 03/29/2021 Abdominal discomfort, epigastric 02/09/2016 03/29/2021 Pain in joint, lower leg 05/03/201505/2020 Headache 10/30/2013 03/29/2021 Laryngitis 10/30/2013 01/04/2015 Internal hemorrhoids without mention of complication 12/13/2011 08/14/2021 Hemorrhage of gastrointestin al tract, unspecified 12/13/2011 12/15/2013 Diarrhea 12/13/2011 01/04/2015 Cephalgia 08/15/2011 01/04/2015 Calculus of gallbladder with other cholecystitis, without mention of obstruction 10/18/2006 12/15/2013 Impaired fasting glucose 05/23/2006 Mixed hyperlipidemia 05/23/2006 014 DM type 2 (diabetes mellitus, type 2) 05/18/2020 documented as of this encounter (statuses as of 05/29/2023) [facility]08[facility]2020 History of Past illness Narrative* Problem Noted Date Diagnosed Date Resolved Date Cauda equina compression 04/27/202005/2020 Lumbar stenosis 04/27/2020 05/18/2020 Neck pain, musculoskeletal 03/08/2019 0 03/29/2021 Abdominal discomfort, epigastric 02/09/2016 03/29/2021 Pain in joint, lower leg 05/03/201505/2020 Headache 10/30/2013 03/29/2021 Laryngitis 10/30/2013 01/04/2015 Internal hemorrhoids without mention of complication 12/13/2011 08/14/2021 Hemorrhage of gastrointestin al tract, unspecified 12/13/2011 12/15/2013 Diarrhea 12/13/2011 01/04/2015 Cephalgia 08/15/2011 01/04/2015 Calculus of gallbladder with other cholecystitis, without mention of obstruction 10/18/2006 12/15/2013 Impaired fasting glucose 05/23/2006 Mixed hyperlipidemia 05/23/2006 014 DM type 2 (diabetes mellitus, type 2) 05/18/2020 documented as of this encounter (statuses as of 06/01/2023) [address]19-2020 History of Past illness Narrative* Problem Noted Date Diagnosed Date Resolved Date Cauda equina compression 04/27/202005/2020 Lumbar stenosis 04/27/2020 05/18/2020 Neck pain, musculoskeletal 03/08/2019 0 03/29/2021 Abdominal discomfort, epigastric 02/09/2016 03/29/2021 Pain in joint, lower leg 05/03/201505/2020 Headache 10/30/2013 03/29/2021 Laryngitis 10/30/2013 01/04/2015 Internal hemorrhoids without mention of complication 12/13/2011 08/14/2021 Hemorrhage of gastrointestin al tract, unspecified 12/13/2011 12/15/2013 Diarrhea 12/13/2011 01/04/2015 Cephalgia 08/15/2011 01/04/2015 Calculus of gallbladder with other cholecystitis, without mention of obstruction 10/18/2006 12/15/2013 Impaired fasting glucose 05/23/2006 Mixed hyperlipidemia 05/23/2006 014 DM type 2 (diabetes mellitus, type 2) 05/18/2020 documented as of this encounter (statuses as of 06/04/2023) [facility]08[facility]2020 History of Past illness Narrative* Problem Noted Date Diagnosed Date Resolved Date Cauda equina compression 04/27/202005/2020 Lumbar stenosis 04/27/2020 05/18/2020 Neck pain, musculoskeletal 03/08/2019 0 03/29/2021 Abdominal discomfort, epigastric 02/09/2016 03/29/2021 Pain in joint, lower leg 05/03/201505/2020 Headache 10/30/2013 03/29/2021 Laryngitis 10/30/2013 01/04/2015 Internal hemorrhoids without mention of complication 12/13/2011 08/14/2021 Hemorrhage of gastrointestin al tract, unspecified 12/13/2011 12/15/2013 Diarrhea 12/13/2011 01/04/2015 Cephalgia 08/15/2011 01/04/2015 Calculus of gallbladder with other cholecystitis, without mention of obstruction 10/18/2006 12/15/2013 Impaired fasting glucose 05/23/2006 Mixed hyperlipidemia 05/23/2006 014 DM type 2 (diabetes mellitus, type 2) 05/18/2020 documented as of this encounter (statuses as of 06/28/2023) [facility]2020 History of Past illness Narrative* Problem Noted Date Diagnosed Date Resolved Date Cauda equina compression 04/27/202005/2020 Lumbar stenosis 04/27/2020 05/18/2020 Neck pain, musculoskeletal 03/08/2019 0 03/29/2021 Abdominal discomfort, epigastric 02/09/2016 03/29/2021 Pain in joint, lower leg 05/03/201505/2020 Headache 10/30/2013 03/29/2021 Laryngitis 10/30/2013 01/04/2015 Internal hemorrhoids without mention of complication 12/13/2011 08/14/2021 Hemorrhage of gastrointestin al tract, unspecified 12/13/2011 12/15/2013 Diarrhea 12/13/2011 01/04/2015 Cephalgia 08/15/2011 01/04/2015 Calculus of gallbladder with other cholecystitis, without mention of obstruction 10/18/2006 12/15/2013 Impaired fasting glucose 05/23/2006 Mixed hyperlipidemia 05/23/2006 014 DM type 2 (diabetes mellitus, type 2) 05/18/2020 documented as of this encounter (statuses as of 07/04/2023) [facility]08[facility]2020 History of Past illness Narrative* Problem Noted Date Diagnosed Date Resolved Date Cauda equina compression 04/27/202005/2020 Lumbar stenosis 04/27/2020 05/18/2020 Neck pain, musculoskeletal 03/08/2019 0 03/29/2021 Abdominal discomfort, epigastric 02/09/2016 03/29/2021 Pain in joint, lower leg 05/03/201505/2020 Headache 10/30/2013 03/29/2021 Laryngitis 10/30/2013 01/04/2015 Internal hemorrhoids without mention of complication 12/13/2011 08/14/2021 Hemorrhage of gastrointestin al tract, unspecified 12/13/2011 12/15/2013 Diarrhea 12/13/2011 01/04/2015 Cephalgia 08/15/2011 01/04/2015 Calculus of gallbladder with other cholecystitis, without mention of obstruction 10/18/2006 12/15/2013 Impaired fasting glucose 05/23/2006 Mixed hyperlipidemia 05/23/2006 014 DM type 2 (diabetes mellitus, type 2) 05/18/2020 documented as of this encounter (statuses as of 07/14/2023) [facility]08[facility]2020 History of Past illness Narrative* Problem Noted Date Diagnosed Date Resolved Date Cauda equina compression 04/27/202005/2020 Lumbar stenosis 04/27/2020 05/18/2020 Neck pain, musculoskeletal 03/08/2019 0 03/29/2021 Abdominal discomfort, epigastric 02/09/2016 03/29/2021 Pain in joint, lower leg 05/03/201505/2020 Headache 10/30/2013 03/29/2021 Laryngitis 10/30/2013 01/04/2015 Internal hemorrhoids without mention of complication 12/13/2011 08/14/2021 Hemorrhage of gastrointestin al tract, unspecified 12/13/2011 12/15/2013 Diarrhea 12/13/2011 01/04/2015 Cephalgia 08/15/2011 01/04/2015 Calculus of gallbladder with other cholecystitis, without mention of obstruction 10/18/2006 12/15/2013 Impaired fasting glucose 05/23/2006 Mixed hyperlipidemia 05/23/2006 014 DM type 2 (diabetes mellitus, type 2) 05/18/2020 documented as of this encounter (statuses as of 07/14/2023) [facility] History of Past illness Narrative* Problem Noted Date Diagnosed Date Resolved Date Cauda equina compression 04/27/202005/2020 Lumbar stenosis 04/27/2020 05/18/2020 Neck pain, musculoskeletal 03/08/2019 0 03/29/2021 Abdominal discomfort, epigastric 02/09/2016 03/29/2021 Pain in joint, lower leg 05/03/201505/2020 Headache 10/30/2013 03/29/2021 Laryngitis 10/30/2013 01/04/2015 Internal hemorrhoids without mention of complication 12/13/2011 08/14/2021 Hemorrhage of gastrointestin al tract, unspecified 12/13/2011 12/15/2013 Diarrhea 12/13/2011 01/04/2015 Cephalgia 08/15/2011 01/04/2015 Calculus of gallbladder with other cholecystitis, without mention of obstruction 10/18/2006 12/15/2013 Impaired fasting glucose 05/23/2006 Mixed hyperlipidemia 05/23/2006 014 DM type 2 (diabetes mellitus, type 2) 05/18/2020 documented as of this encounter (statuses as of 07/14/2023) [facility] History of Past illness Narrative* Problem Noted Date Diagnosed Date Resolved Date Cauda equina compression 04/27/202005/2020 Lumbar stenosis 04/27/2020 05/18/2020 Neck pain, musculoskeletal 03/08/2019 0 03/29/2021 Abdominal discomfort, epigastric 02/09/2016 03/29/2021 Pain in joint, lower leg 05/03/201505/2020 Headache 10/30/2013 03/29/2021 Laryngitis 10/30/2013 01/04/2015 Internal hemorrhoids without mention of complication 12/13/2011 08/14/2021 Hemorrhage of gastrointestin al tract, unspecified 12/13/2011 12/15/2013 Diarrhea 12/13/2011 01/04/2015 Cephalgia 08/15/2011 01/04/2015 Calculus of gallbladder with other cholecystitis, without mention of obstruction 10/18/2006 12/15/2013 Impaired fasting glucose 05/23/2006 Mixed hyperlipidemia 05/23/2006 014 DM type 2 (diabetes mellitus, type 2) 05/18/2020 documented as of this encounter (statuses as of 07/18/2023) [facility]2020 History of Past illness Narrative* Problem Noted Date Diagnosed Date Resolved Date Cauda equina compression 04/27/202005/2020 Lumbar stenosis 04/27/2020 05/18/2020 Neck pain, musculoskeletal 03/08/2019 0 03/29/2021 Abdominal discomfort, epigastric 02/09/2016 03/29/2021 Pain in joint, lower leg 05/03/201505/2020 Headache 10/30/2013 03/29/2021 Laryngitis 10/30/2013 01/04/2015 Internal hemorrhoids without mention of complication 12/13/2011 08/14/2021 Hemorrhage of gastrointestin al tract, unspecified 12/13/2011 12/15/2013 Diarrhea 12/13/2011 01/04/2015 Cephalgia 08/15/2011 01/04/2015 Calculus of gallbladder with other cholecystitis, without mention of obstruction 10/18/2006 12/15/2013 Impaired fasting glucose 05/23/2006 Mixed hyperlipidemia 05/23/2006 014 DM type 2 (diabetes mellitus, type 2) 05/18/2020 documented as of this encounter (statuses as of 07/19/2023) [facility] History of Past illness Narrative* Problem Noted Date Diagnosed Date Resolved Date Cauda equina compression 04/27/202005/2020 Lumbar stenosis 04/27/2020 05/18/2020 Neck pain, musculoskeletal 03/08/2019 0 03/29/2021 Abdominal discomfort, epigastric 02/09/2016 03/29/2021 Pain in joint, lower leg 05/03/201505/2020 Headache 10/30/2013 03/29/2021 Laryngitis 10/30/2013 01/04/2015 Internal hemorrhoids without mention of complication 12/13/2011 08/14/2021 Hemorrhage of gastrointestin al tract, unspecified 12/13/2011 12/15/2013 Diarrhea 12/13/2011 01/04/2015 Cephalgia 08/15/2011 01/04/2015 Calculus of gallbladder with other cholecystitis, without mention of obstruction 10/18/2006 12/15/2013 Impaired fasting glucose 05/23/2006 Mixed hyperlipidemia 05/23/2006 014 DM type 2 (diabetes mellitus, type 2) 05/18/2020 documented as of this encounter (statuses as of 07/19/2023) [facility] History of Past illness Narrative* Problem Noted Date Diagnosed Date Resolved Date Cauda equina compression 04/27/202005/2020 Lumbar stenosis 04/27/2020 05/18/2020 Neck pain, musculoskeletal 03/08/2019 0 03/29/2021 Abdominal discomfort, epigastric 02/09/2016 03/29/2021 Pain in joint, lower leg 05/03/201505/2020 Headache 10/30/2013 03/29/2021 Laryngitis 10/30/2013 01/04/2015 Internal hemorrhoids without mention of complication 12/13/2011 08/14/2021 Hemorrhage of gastrointestin al tract, unspecified 12/13/2011 12/15/2013 Diarrhea 12/13/2011 01/04/2015 Cephalgia 08/15/2011 01/04/2015 Calculus of gallbladder with other cholecystitis, without mention of obstruction 10/18/2006 12/15/2013 Impaired fasting glucose 05/23/2006 Mixed hyperlipidemia 05/23/2006 014 DM type 2 (diabetes mellitus, type 2) 05/18/2020 documented as of this encounter (statuses as of 08/09/2023) [facility] History of Past illness Narrative* Problem Noted Date Diagnosed Date Resolved Date Cauda equina compression 04/27/202005/2020 Lumbar stenosis 04/27/2020 05/18/2020 Neck pain, musculoskeletal 03/08/2019 0 03/29/2021 Abdominal discomfort, epigastric 02/09/2016 03/29/2021 Pain in joint, lower leg 05/03/201505/2020 Headache 10/30/2013 03/29/2021 Laryngitis 10/30/2013 01/04/2015 Internal hemorrhoids without mention of complication 12/13/2011 08/14/2021 Hemorrhage of gastrointestin al tract, unspecified 12/13/2011 12/15/2013 Diarrhea 12/13/2011 01/04/2015 Cephalgia 08/15/2011 01/04/2015 Calculus of gallbladder with other cholecystitis, without mention of obstruction 10/18/2006 12/15/2013 Impaired fasting glucose 05/23/2006 Mixed hyperlipidemia 05/23/2006 014 DM type 2 (diabetes mellitus, type 2) 05/18/2020 documented as of this encounter (statuses as of 08/19/2023) [facility] History of Past illness Narrative* Problem Noted Date Diagnosed Date Resolved Date Cauda equina compression 04/27/202005/2020 Lumbar stenosis 04/27/2020 05/18/2020 Neck pain, musculoskeletal 03/08/2019 0 03/29/2021 Abdominal discomfort, epigastric 02/09/2016 03/29/2021 Pain in joint, lower leg 05/03/201505/2020 Headache 10/30/2013 03/29/2021 Laryngitis 10/30/2013 01/04/2015 Internal hemorrhoids without mention of complication 12/13/2011 08/14/2021 Hemorrhage of gastrointestin al tract, unspecified 12/13/2011 12/15/2013 Diarrhea 12/13/2011 01/04/2015 Cephalgia 08/15/2011 01/04/2015 Calculus of gallbladder with other cholecystitis, without mention of obstruction 10/18/2006 12/15/2013 Impaired fasting glucose 05/23/2006 Mixed hyperlipidemia 05/23/2006 014 DM type 2 (diabetes mellitus, type 2) 05/18/2020 documented as of this encounter (statuses as of 11/06/2023) [facility] History of Past illness Narrative* Problem Noted Date Diagnosed Date Resolved Date Cauda equina compression 04/27/202005/2020 Lumbar stenosis 04/27/2020 05/18/2020 Neck pain, musculoskeletal 03/08/2019 0 03/29/2021 Abdominal discomfort, epigastric 02/09/2016 03/29/2021 Pain in joint, lower leg 05/03/201505/2020 Headache 10/30/2013 03/29/2021 Laryngitis 10/30/2013 01/04/2015 Internal hemorrhoids without mention of complication 12/13/2011 08/14/2021 Hemorrhage of gastrointestin al tract, unspecified 12/13/2011 12/15/2013 Diarrhea 12/13/2011 01/04/2015 Cephalgia 08/15/2011 01/04/2015 Calculus of gallbladder with other cholecystitis, without mention of obstruction 10/18/2006 12/15/2013 Impaired fasting glucose 05/23/2006 Mixed hyperlipidemia 05/23/2006 014 DM type 2 (diabetes mellitus, type 2) 05/18/2020 documented as of this encounter (statuses as of 11/08/2023) [facility] History of Past illness Narrative* Problem Noted Date Diagnosed Date Resolved Date Cauda equina compression 04/27/202005/2020 Lumbar stenosis 04/27/2020 05/18/2020 Neck pain, musculoskeletal 03/08/2019 0 03/29/2021 Abdominal discomfort, epigastric 02/09/2016 03/29/2021 Pain in joint, lower leg 05/03/201505/2020 Headache 10/30/2013 03/29/2021 Laryngitis 10/30/2013 01/04/2015 Internal hemorrhoids without mention of complication 12/13/2011 08/14/2021 Hemorrhage of gastrointestin al tract, unspecified 12/13/2011 12/15/2013 Diarrhea 12/13/2011 01/04/2015 Cephalgia 08/15/2011 01/04/2015 Calculus of gallbladder with other cholecystitis, without mention of obstruction 10/18/2006 12/15/2013 Impaired fasting glucose 05/23/2006 Mixed hyperlipidemia 05/23/2006 014 DM type 2 (diabetes mellitus, type 2) 05/18/2020 documented as of this encounter (statuses as of 11/11/2023) [facility]08-19-2020 History of Past illness Narrative* Problem Noted Date Diagnosed Date Resolved Date Cauda equina compression 04/27/202005/2020 Lumbar stenosis 04/27/2020 05/18/2020 Neck pain, musculoskeletal 03/08/2019 0 03/29/2021 Abdominal discomfort, epigastric 02/09/2016 03/29/2021 Pain in joint, lower leg 05/03/201505/2020 Headache 10/30/2013 03/29/2021 Laryngitis 10/30/2013 01/04/2015 Internal hemorrhoids without mention of complication 12/13/2011 08/14/2021 Hemorrhage of gastrointestin al tract, unspecified 12/13/2011 12/15/2013 Diarrhea 12/13/2011 01/04/2015 Cephalgia 08/15/2011 01/04/2015 Calculus of gallbladder with other cholecystitis, without mention of obstruction 10/18/2006 12/15/2013 Impaired fasting glucose 05/23/2006 Mixed hyperlipidemia 05/23/2006 014 DM type 2 (diabetes mellitus, type 2) 05/18/2020 documented as of this encounter (statuses as of 11/11/2023) [facility] History of Past illness Narrative* Problem Noted Date Diagnosed Date Resolved Date Cauda equina compression 04/27/202005/2020 Lumbar stenosis 04/27/2020 05/18/2020 Neck pain, musculoskeletal 03/08/2019 0 03/29/2021 Abdominal discomfort, epigastric 02/09/2016 03/29/2021 Pain in joint, lower leg 05/03/201505/2020 Headache 10/30/2013 03/29/2021 Laryngitis 10/30/2013 01/04/2015 Internal hemorrhoids without mention of complication 12/13/2011 08/14/2021 Hemorrhage of gastrointestin al tract, unspecified 12/13/2011 12/15/2013 Diarrhea 12/13/2011 01/04/2015 Cephalgia 08/15/2011 01/04/2015 Calculus of gallbladder with other cholecystitis, without mention of obstruction 10/18/2006 12/15/2013 Impaired fasting glucose 05/23/2006 Mixed hyperlipidemia 05/23/2006 014 DM type 2 (diabetes mellitus, type 2) 05/18/2020 documented as of this encounter (statuses as of 11/21/2023) [facility] History of Past illness Narrative* Problem Noted Date Diagnosed Date Resolved Date Cauda equina compression 04/27/202005/2020 Lumbar stenosis 04/27/2020 05/18/2020 Neck pain, musculoskeletal 03/08/2019 0 03/29/2021 Abdominal discomfort, epigastric 02/09/2016 03/29/2021 Pain in joint, lower leg 05/03/201505/2020 Headache 10/30/2013 03/29/2021 Laryngitis 10/30/2013 01/04/2015 Internal hemorrhoids without mention of complication 12/13/2011 08/14/2021 Hemorrhage of gastrointestin al tract, unspecified 12/13/2011 12/15/2013 Diarrhea 12/13/2011 01/04/2015 Cephalgia 08/15/2011 01/04/2015 Calculus of gallbladder with other cholecystitis, without mention of obstruction 10/18/2006 12/15/2013 Impaired fasting glucose 05/23/2006 Mixed hyperlipidemia 05/23/2006 014 DM type 2 (diabetes mellitus, type 2) 05/18/2020 documented as of this encounter (statuses as of 11/21/2023) [facility] History of Past illness Narrative* Problem Noted Date Diagnosed Date Resolved Date Cauda equina compression 04/27/202005/2020 Lumbar stenosis 04/27/2020 05/18/2020 Neck pain, musculoskeletal 03/08/2019 0 03/29/2021 Abdominal discomfort, epigastric 02/09/2016 03/29/2021 Pain in joint, lower leg 05/03/201505/2020 Headache 10/30/2013 03/29/2021 Laryngitis 10/30/2013 01/04/2015 Internal hemorrhoids without mention of complication 12/13/2011 08/14/2021 Hemorrhage of gastrointestin al tract, unspecified 12/13/2011 12/15/2013 Diarrhea 12/13/2011 01/04/2015 Cephalgia 08/15/2011 01/04/2015 Calculus of gallbladder with other cholecystitis, without mention of obstruction 10/18/2006 12/15/2013 Impaired fasting glucose 05/23/2006 Mixed hyperlipidemia 05/23/2006 014 DM type 2 (diabetes mellitus, type 2) 05/18/2020 documented as of this encounter (statuses as of 11/23/2023) [facility] History of Past illness Narrative* Problem Noted Date Diagnosed Date Resolved Date Cauda equina compression 04/27/202005/2020 Lumbar stenosis 04/27/2020 05/18/2020 Neck pain, musculoskeletal 03/08/2019 0 03/29/2021 Abdominal discomfort, epigastric 02/09/2016 03/29/2021 Pain in joint, lower leg 05/03/201505/2020 Headache 10/30/2013 03/29/2021 Laryngitis 10/30/2013 01/04/2015 Internal hemorrhoids without mention of complication 12/13/2011 08/14/2021 Hemorrhage of gastrointestin al tract, unspecified 12/13/2011 12/15/2013 Diarrhea 12/13/2011 01/04/2015 Cephalgia 08/15/2011 01/04/2015 Calculus of gallbladder with other cholecystitis, without mention of obstruction 10/18/2006 12/15/2013 Impaired fasting glucose 05/23/2006 Mixed hyperlipidemia 05/23/2006 014 DM type 2 (diabetes mellitus, type 2) 05/18/2020 documented as of this encounter (statuses as of 11/26/2023) [address]19-2020 History of Past illness Narrative* Problem Noted Date Diagnosed Date Resolved Date Cauda equina compression 04/27/202005/2020 Lumbar stenosis 04/27/2020 05/18/2020 Neck pain, musculoskeletal 03/08/2019 0 03/29/2021 Abdominal discomfort, epigastric 02/09/2016 03/29/2021 Pain in joint, lower leg 05/03/201505/2020 Headache 10/30/2013 03/29/2021 Laryngitis 10/30/2013 01/04/2015 Internal hemorrhoids without mention of complication 12/13/2011 08/14/2021 Hemorrhage of gastrointestin al tract, unspecified 12/13/2011 12/15/2013 Diarrhea 12/13/2011 01/04/2015 Cephalgia 08/15/2011 01/04/2015 Calculus of gallbladder with other cholecystitis, without mention of obstruction 10/18/2006 12/15/2013 Impaired fasting glucose 05/23/2006 Mixed hyperlipidemia 05/23/2006 014 DM type 2 (diabetes mellitus, type 2) 05/18/2020 documented as of this encounter (statuses as of 12/09/2023) [facility]08[facility]2020 History of Past illness Narrative* Problem Noted Date Diagnosed Date Resolved Date Cauda equina compression 04/27/202005/2020 Lumbar stenosis 04/27/2020 05/18/2020 Neck pain, musculoskeletal 03/08/2019 0 03/29/2021 Abdominal discomfort, epigastric 02/09/2016 03/29/2021 Pain in joint, lower leg 05/03/201505/2020 Headache 10/30/2013 03/29/2021 Laryngitis 10/30/2013 01/04/2015 Internal hemorrhoids without mention of complication 12/13/2011 08/14/2021 Hemorrhage of gastrointestin al tract, unspecified 12/13/2011 12/15/2013 Diarrhea 12/13/2011 01/04/2015 Cephalgia 08/15/2011 01/04/2015 Calculus of gallbladder with other cholecystitis, without mention of obstruction 10/18/2006 12/15/2013 Impaired fasting glucose 05/23/2006 Mixed hyperlipidemia 05/23/2006 014 DM type 2 (diabetes mellitus, type 2) 05/18/2020 documented as of this encounter (statuses as of 12/13/2023) [facility]08[facility]2020 History of Past illness Narrative* Problem Noted Date Diagnosed Date Resolved Date Cauda equina compression 04/27/202005/2020 Lumbar stenosis 04/27/2020 05/18/2020 Neck pain, musculoskeletal 03/08/2019 0 03/29/2021 Abdominal discomfort, epigastric 02/09/2016 03/29/2021 Pain in joint, lower leg 05/03/201505/2020 Headache 10/30/2013 03/29/2021 Laryngitis 10/30/2013 01/04/2015 Internal hemorrhoids without mention of complication 12/13/2011 08/14/2021 Hemorrhage of gastrointestin al tract, unspecified 12/13/2011 12/15/2013 Diarrhea 12/13/2011 01/04/2015 Cephalgia 08/15/2011 01/04/2015 Calculus of gallbladder with other cholecystitis, without mention of obstruction 10/18/2006 12/15/2013 Impaired fasting glucose 05/23/2006 Mixed hyperlipidemia 05/23/2006 014 DM type 2 (diabetes mellitus, type 2) 05/18/2020 documented as of this encounter (statuses as of 12/13/2023) [facility] Diagnosis Severe persistent asthma with acute exacerbation- Primary Unspecified asthma, with exacerbation documented in this encounter [facility]* Diagnosis Onset Date Resolution Status Abdominal pain acute Diarrhea acute [facility] Work Phone: Evaluation note* Diagnosis Onset Date Resolution Status Abdominal pain acute Diarrhea acute Chest pain acute Mixed hyperlipidemia acute SOB (shortness of breath) [place] Benign essential hypertension chronic [facility] Work Phone: evaluation note* Diagnosis Onset Date Resolution Status Abdominal pain acute Diarrhea acute Chest pain acute Mixed hyperlipidemia acute SOB (shortness of breath) [place] Benign essential hypertension chronic Abdominal pain acute Diarrhea acute Elevated CPK acute Fatty liver acute Mixed hyperlipidemia acute Type 2 diabetes mellitus acu te [facility] Work Phone: Evaluation note* Diagnosis Stage 2 moderate COPD by GOLD classification ([facility])- Primary Cigarette smoker Tobacco use disorder Seasonal allergies Allergic rhinitis, cause unspecified [facility] Diagnosis Abdominal bloating- Primary Flatulence, eructation, and gas pain Abdominal mass, unspecified abdominal location [facility] this encounter [facility]* Diagnosis Rectal bleeding- Primary Hemorrhage of rectum and anus Epigastric abdominal pain Abdominal pain, epigastric Abdominal bloating Flatulence, eructation, and gas pain Rectus diastasis Diastasis of muscle [facility]* Diagnosis Rectal bleeding Hemorrhage of rectum and anus Epigastric abdominal pain Abdominal pain, epigastric [facility]* Diagnosis Neuropathy- Primary Mononeuritis of unspecified site Anxiety and depression Dysthymic disorder Neck pain, musculoskeletal Cervicalgia Insomnia, unspecified type Abdominal distension, gaseous Flatulence, eructation, and gas pain documented in this encounter [facility]* Diagnosis Gross hematuria- Primary Acute cystitis with hematuria Acute cystitis Dysuria Urinary frequency Urinary urgency Urgency of urination Essential hypertension Unspecified essential hypertension Cigarette smoker Tobacco use disorder [facility] this [facility]* Diagnosis Hemorrhoids, unspecified hemorrhoid type- Primary Hiatal hernia Diaphragmatic hernia without mention of obstruction or gangrene Gastroesophageal reflux disease, unspecified whether esophagitis present Tubular adenoma Benign neoplasm of unspecified site [facility] this encounter [facility]* Diagnosis Type 2 diabetes mellitus with diabetic neuropathy, without long-term current use of insulin ([facility]) documented [facility] this encounter [facility]* Diagnosis S/P lumbar laminectomy Other postprocedural status Chronic midline low back pain, unspecified whether sciatica present Spinal stenosis of lumbar region, unspecified whether neurogenic claudication present Gait instability Abnormality of gait documented in this encounter [facility] note* Diagnosis Chronic midline low back pain, unspecified whether sciatica present- Primary S/P lumbar laminectomy Other postprocedural status Gait instability Abnormality of gait documented in this encounter [facility] note* Diagnosis Chronic midline low back pain, unspecified whether sciatica present- Primary S/P lumbar laminectomy Other postprocedural status Gait instability Abnormality of gait documented in this encounter [facility] note* Diagnosis Onset Date Resolution Status Mixed hyperlipidemia acute Benign essential hypertension [facility] Work Phone: Evaluation note* Diagnosis Neuropathy Mononeuritis of unspecified site documented in this encounter [facility] note* Diagnosis Chronic midline low back pain, unspecified whether sciatica present- Primary Type 2 diabetes mellitus with diabetic neuropathy, without long-term current use of insulin ([facility]) Class 1 obesity due to excess calories without serious comorbidity with body mass index (BMI) of 32.0 to 32.9 in adult Allergic rhinitis, unspecified seasonality, unspecified trigger Anxiety and depression Dysthymic disorder Spinal stenosis of lumbar region, unspecified whether neurogenic claudication present S/P lumbar laminectomy Other postprocedural status Essential hypertension Unspecified essential hypertension Neuropathy Mononeuritis of unspecified site Gait instability Abnormality of gait Encounter for long-term current use of medication Pure hyperglyceridemia documented in this encounter [facility]* Diagnosis Painful urination- Primary Dysuria URI, acute Acute upper respiratory infections of unspecified site [facility] this encounter [facility]* Diagnosis Moderate persistent asthma with acute exacerbation- Primary [facility] with exacerbation (HCC)- Primary Obstructive chronic bronchitis with exacerbation Moderate persistent asthma with acute exacerbation Urinary tract infection without hematuria, site unspecified [facility] Diagnosis Severe persistent asthma, unspecified whether complicated- Primary Chronic obstructive pulmonary disease, unspecified COPD type (HCC) Type 2 diabetes mellitus with diabetic neuropathy, without long-term current use of insulin (HCC) Recent urinary tract infection Abdominal tenderness without rebound tenderness, unspecified location documented in this encounter [facility]* Diagnosis Type 2 diabetes mellitus with diabetic neuropathy, without long-term current use of insulin (HCC)- Primary Lower abdominal pain Abdominal pain, other specified site Recent urinary tract infection Thrush Candidiasis of mouth [facility]* Diagnosis Lower abdominal pain- Primary Abdominal pain, other specified site documented in this encounter [facility]* Diagnosis Anxiety and depression Dysthymic disorder documented in this encounter [facility] noteNo assessment information availableWSum[facility] Work Phone: Evaluation note* Diagnosis COVID-19 virus infection- Primary Severe persistent asthma, unspecified whether complicated Type 2 diabetes mellitus with diabetic neuropathy, without long-term current use of insulin (HCC) documented in this encounter [facility]* Diagnosis Acute bilateral low back pain with bilateral sciatica- Primary Radiculopathy of lumbar region Thoracic or lumbosacral neuritis or radiculitis, unspecified Spinal stenosis of lumbar region with neurogenic claudication Spinal stenosis, lumbar region, with neurogenic claudication Type 2 diabetes mellitus with diabetic neuropathy, without long-term current use of insulin (HCC) Cigarette smoker Tobacco use disorder Encounter for screening mammogram for breast cancer Encounter for immunization Need for other specified prophylactic vaccination against single bacterial disease [facility]* Diagnosis Nocturnal enuresis- Primary [facility] Diagnosis Essential hypertension- Primary Unspecified essential hypertension Upper back pain Diminished pulses in lower extremity Other symptoms involving cardiovascular system Pain in both lower extremities Foot pain, bilateral Pain in limb Cigarette smoker Tobacco use disorder Type 2 diabetes mellitus with diabetic neuropathy, without long-term current use of insulin (HCC) Asymptomatic postmenopausal status Spinal stenosis of lumbar region, unspecified whether neurogenic claudication present S/P lumbar laminectomy Other postprocedural status Class 1 obesity due to excess calories with serious comorbidity and body mass index (BMI) of 33.0 to 33.9 in adult documented in this encounter [facility] note* Diagnosis Acute cough- Primary COPD with exacerbation (HCC) Obstructive chronic bronchitis with exacerbation documented [facility] this encounter [facility]* Diagnosis Anxiety and depression Dysthymic disorder documented in this encounter [facility]* Diagnosis Anxiety and depression Dysthymic disorder documented in this encounter [facility] note* Diagnosis Stage 2 moderate COPD by GOLD classification ([facility])- Primary Tobacco abuse Tobacco use disorder Seasonal allergies Allergic rhinitis, cause unspecified [facility] Diagnosis Oral thrush- Primary Candidiasis of mouth documented in this encounter [facility]* Diagnosis Sinobronchitis- Primary Unspecified sinusitis (chronic) Type 2 diabetes mellitus with diabetic neuropathy, without long-term current use of insulin (HCC) Essential hypertension Unspecified essential hypertension Encounter for long-term current use of medication Mixed hyperlipidemia Chronic obstructive pulmonary disease, unspecified COPD type (HCC) Neuropathy Mononeuritis of unspecified site Stage 2 moderate COPD by GOLD classification ([facility]) Moderate persistent asthma without complication Unspecified asthma Depression, recurrent (HCC) Major depressive disorder, recurrent episode, unspecified documented in this encounter [facility] note* Diagnosis Onset Date Resolution Status Abdominal pain chronic Bloating chronic Diarrhea chronic Heartburn [facility] Work Phone: Evaluation note* Diagnosis COPD with exacerbation (HCC)- Primary Obstructive chronic bronchitis with exacerbation Itching Unspecified pruritic disorder Sinobronchitis Unspecified sinusitis (chronic) Recurrent major depressive disorder, in remission ([facility]) [facility] this encounter [facility]* Diagnosis Anxiety and depression Dysthymic disorder [facility] Diagnosis Moderate persistent asthma without complication Unspecified asthma documented in this encounter [facility] note* Diagnosis Onset Date Resolution Status Abdominal pain chronic Bloating chronic Diarrhea chronic [place] chronic Abdominal pain chronic Bloating chronic Diarrhea chronic Heartburn [facility] Work Phone: Evaluation note* Diagnosis Stage 2 moderate COPD by GOLD classification ([facility]) documented in this encounter [facility] note* Diagnosis Stage 2 moderate COPD by GOLD classification ([facility]) documented in this encounter [facility] note* Diagnosis Stage 2 moderate COPD by GOLD classification ([facility])- Primary Tobacco abuse Tobacco use disorder documented in this encounter [facility] note* Diagnosis Acute cough- Primary Asthma with COPD with exacerbation (HCC) Chronic obstructive asthma with exacerbation documented in this encounter [facility] note* Diagnosis Hives- Primary Urticaria, unspecified Dermatitis Contact dermatitis and other eczema, due to unspecified cause Other fatigue documented in this encounter [facility] note* Diagnosis Hives- Primary Urticaria, unspecified Dermatitis Contact dermatitis and other eczema, due to unspecified cause documented in this encounter [facility] note* Diagnosis Asymptomatic postmenopausal status documented in this encounter [facility] note* Diagnosis Acute bilateral low back pain with bilateral sciatica Radiculopathy of lumbar region Thoracic or lumbosacral neuritis or radiculitis, unspecified Spinal stenosis of lumbar region with neurogenic claudication Spinal stenosis, lumbar region, with neurogenic claudication documented in this encounter [facility] note* Diagnosis Lower abdominal pain Abdominal pain, other specified site documented in this encounter [facility] note* Diagnosis Encounter for screening mammogram for breast cancer documented in this encounter [facility] note* Diagnosis Moderate persistent asthma without complication Unspecified asthma documented in this encounter [facility] note* Diagnosis Essential hypertension- Primary Unspecified essential hypertension Throbbing headache Headache Acute pain of right shoulder Type 2 diabetes mellitus with hyperglycemia, without long-term current use of insulin (HCC) Severe persistent asthma without complication Pain in both lower extremities Encounter for immunization Need for other specified prophylactic vaccination against single bacterial disease documented in this encounter [facility] note* Diagnosis Onset Date Resolution Status Gastroparesis acute Nonalcoholic fatty liver disease acute Abdominal pain chronic Bloating chronic Diarrhea chronic [place] chronic Hemorrhoid chronic [facility] Work Phone: Evaluation note* Diagnosis Asthma with COPD ([facility])- Primary Chronic obstructive asthma, unspecified Cigarette smoker Tobacco use disorder YARY (obstructive sleep apnea) Obstructive sleep apnea (adult) (pediatric) documented in this encounter [facility] note* Diagnosis Neuropathy Mononeuritis of unspecified site Stage 2 moderate COPD by GOLD classification ([facility]) documented in this encounter [facility] note* Diagnosis Asthma with COPD ([facility]) Chronic obstructive asthma, unspecified [facility] Asthma with COPD (HCC) Chronic obstructive asthma, unspecified [facility] Diagnosis Encounter for screening for lung cancer- Primary Tobacco use current [facility]* Diagnosis Type 2 diabetes mellitus with hyperglycemia, without long-term current use of insulin ([facility])- Primary YARY (obstructive sleep apnea) Obstructive sleep apnea (adult) (pediatric) Neuropathy Mononeuritis of unspecified site Anxiety and depression Dysthymic disorder Essential hypertension Unspecified essential hypertension Mixed hyperlipidemia Severe persistent asthma without complication Recurrent major depressive disorder, in remission ([facility]) Type 2 diabetes mellitus with diabetic neuropathy, without long-term current use of insulin ([facility]) [facility]* Diagnosis YARY (obstructive sleep apnea) Obstructive sleep apnea (adult) (pediatric) [facility] Diagnosis Tobacco use current [facility] Diagnosis Tobacco use current- Primary [facility] this [facility] Diagnosis Elevated CK- Primary Other nonspecific abnormal serum enzyme levels [facility] this [facility]* Diagnosis Diarrhea, unspecified type- Primary Elevated CK Other nonspecific abnormal serum enzyme levels Myalgias Type 2 diabetes mellitus with hyperglycemia, without long-term current use of insulin ([facility]) Class 1 obesity due to excess calories with body mass index (BMI) of 32.0 to 32.9 in adult, unspecified whether serious comorbidity present YARY (obstructive sleep apnea) Obstructive sleep apnea (adult) (pediatric) documented [facility] Diagnosis YARY (obstructive sleep apnea)- Primary Obstructive sleep apnea (adult) (pediatric) Injury of toe on left foot, initial encounter [facility] this [facility]* Diagnosis Acute cough- Primary Elbow swelling, right Suspected COVID-19 virus infection Elbow swelling, right Acute cough [facility] this [facility]* Diagnosis Cystitis- Primary Cystitis, unspecified [facility]* Diagnosis Moderate persistent asthma without complication Unspecified asthma [facility]* Diagnosis Anxiety and depression Dysthymic disorder [facility] Lung nodules- Primary Other nonspecific abnormal finding of lung field Moderate persistent asthma without complication Unspecified asthma Cigarette smoker Tobacco use disorder Class 2 obesity [facility] Diagnosis Acute cystitis without hematuria- Primary Acute cystitis History of sepsis Personal history of other infectious and parasitic disease Gas bloat syndrome Urinary urgency Urgency of urination Type 2 diabetes mellitus with hyperglycemia, without long-term current use of insulin ([facility]) Other chronic back pain [facility]* Diagnosis Elbow swelling, right Acute cough [facility]* Diagnosis Injury of toe on left foot, initial encounter documented in this encounter [facility] note* Diagnosis Acute bronchitis with chronic obstructive pulmonary disease (COPD) (HCC) ([facility])- Primary Obstructive chronic bronchitis with acute bronchitis Essential hypertension Unspecified essential hypertension Type 2 diabetes mellitus with hyperglycemia, without long-term current use of insulin ([facility]) Mixed hyperlipidemia Severe persistent asthma with acute exacerbation Unspecified asthma, with exacerbation Encounter for long-term current use of medication Class 1 obesity due to excess calories with body mass index (BMI) of 30.0 to 30.9 in adult, unspecified whether serious comorbidity present documented in this encounter [facility] note* Diagnosis Sinobronchitis- Primary Unspecified sinusitis (chronic) Stage 2 moderate COPD by GOLD classification ([facility]) Acute upper respiratory infection Acute upper respiratory infections of unspecified site Acute viral syndrome Unspecified viral infection, in conditions classified elsewhere and of unspecified site documented in this encounter [facility] note* Diagnosis COVID- Primary [facility]* Diagnosis Acute cough documented in this encounter [facility] note* Diagnosis Acute pain of right shoulder documented in this [facility]* Diagnosis Acute cough documented in this encounter [facility] note* Diagnosis Moderate persistent asthma with acute exacerbation documented in this [facility]* Diagnosis Chronic obstructive pulmonary disease, unspecified COPD type (HCC)- Primary documented in this encounter [facility] note* Diagnosis Acute cough URI, acute Acute upper respiratory infections of unspecified site documented [facility] this [facility]* Diagnosis Chest pain, unspecified type Cough SOB (shortness of breath) Shortness of breath documented in this encounter [facility] note* Diagnosis Neuropathy Mononeuritis of unspecified site documented [facility]* Diagnosis S/P lumbar laminectomy Other postprocedural status documented in this encounter [facility] note* Diagnosis Lung nodules Other nonspecific abnormal finding of lung field documented in this encounter [facility] note* Diagnosis Type 2 diabetes mellitus with diabetic neuropathy, without long-term current use of insulin ([facility])- Primary documented in this encounter [facility] note* Diagnosis Moderate persistent asthma without complication Unspecified asthma Stage 2 moderate COPD by GOLD classification ([facility]) documented in this encounter [facility] note* Diagnosis Needs assistance with community resources- Primary documented in this encounter [facility] note* Diagnosis Neuropathy- Primary Mononeuritis of unspecified site Other fatigue documented in this encounter [facility] note* Diagnosis Type 2 diabetes mellitus with diabetic neuropathy, without long-term current use of insulin ([facility])- Primary Neck pain, musculoskeletal Cervicalgia Mixed hyperlipidemia Essential hypertension Unspecified essential hypertension Class 1 obesity due to excess calories with body mass index (BMI) of 30.0 to 30.9 in adult, unspecified whether serious comorbidity present Primary osteoarthritis of both knees Primary localized osteoarthrosis, lower leg Primary osteoarthritis of both hips Primary localized osteoarthrosis, pelvic region and thigh Balance disorder Other symptoms involving nervous and musculoskeletal systems Neuropathy Mononeuritis of unspecified site Other chronic back pain Chronic midline low back pain with bilateral sciatica Chronic fatigue Other malaise and fatigue Anxiety and depression Dysthymic disorder documented in this encounter [facility] note* Diagnosis Needs assistance with community resources- Primary documented in this encounter [facility] note* Diagnosis Other chronic back pain- Primary Neuropathy Mononeuritis of unspecified site documented [facility] this [facility]* Diagnosis Pain with urination- Primary Renal colic documented in this [facility]* Diagnosis Multifocal pneumonia- Primary Pleural effusion Unspecified pleural effusion Cigarette smoker Tobacco use disorder documented in this encounter [facility] note* Diagnosis Essential hypertension- Primary Unspecified essential hypertension GRACIELA (acute kidney injury) (HCC) Acute kidney failure, unspecified Elevated brain natriuretic peptide (BNP) level Other nonspecific findings on examination of blood Multifocal pneumonia documented in this encounter [facility] note* Diagnosis Needs assistance with community resources- Primary documented in this encounter [facility] note* Diagnosis Needs assistance with community resources- Primary documented in this encounter [facility] note* Diagnosis Encounter for screening mammogram for breast cancer Dense breast tissue [facility]* Diagnosis Neuropathy- Primary Mononeuritis of unspecified site Carpal tunnel syndrome of right wrist Carpal tunnel syndrome documented in this [facility]* Diagnosis Moderate persistent asthma without complication- Primary Unspecified asthma Lung nodules Other nonspecific abnormal finding of lung field Class 2 obesity Tobacco use current YARY (obstructive sleep apnea) Obstructive sleep apnea (adult) (pediatric) Family history of abdominal aortic aneurysm (AAA) Ectasia of artery (HCC) documented in this encounter [facility]* Diagnosis Type 2 diabetes mellitus with diabetic neuropathy, without long-term current use of insulin (HCC)- Primary Essential hypertension Unspecified essential hypertension Moderate persistent asthma without complication Unspecified asthma Anxiety and depression Dysthymic disorder Neuropathy Mononeuritis of unspecified site Bilateral leg edema Edema Chronic obstructive pulmonary disease with (acute) exacerbation (HCC) documented in this encounter [facility]* Diagnosis Urinary frequency- Primary documented in this encounter [facility] note* Diagnosis Encounter for screening for lung cancer- Primary Tobacco use current documented in this encounter [facility]* Diagnosis Urinary frequency- Primary Asthma, unspecified asthma severity, unspecified whether complicated, unspecified whether persistent (HCC) History of urinary tract infection Personal history of urinary (tract) infection documented in this [facility]* Diagnosis Toe pain, right- Primary Pain in limb Family history of abdominal aortic aneurysm (AAA) Ectasia of artery Acute right ankle pain documented in this [facility]* Diagnosis Acute right ankle pain Toe pain, right Pain in limb documented [facility] encounter [facility] Author Uriel Caceres [facility] July 01, 2023 8:01am Note Date/Time July 01, 2023 8 :01am [facility] Medical Records Department [address] [place] [id number] History & Physical Exam 07/01/23 0800 MR#: [id number] Acct: [id number] Name: GARLAND DE SANTIAGO Rep #:[id number] : 1960 63 From: Uriel Caceres DO PCP: Dr. Willam Estrada MD Status:[facility] Location: [place] [address] History and Physical Date of Admission: 07/01/23 62 F who presents to the office today for a follow up. Prior workup:?Stool?H.Pylori, C.diff, lactoferrin, EP WNL.? *BGI established 12.14.21 with postprandial abdominal bloating and diarrhea 15+/day with periodic incontinence?Biochemical?CBC, ESR, CMP, CRP, LDH, TSH, JOSE F comp, gastrin, celiac without pertinent abnormality?Stool O/P, giardia?CT abd/pel 12.22.21?Gastric emptying study 12.26.21?US RUQ and?Elastography 01.09.22? OV 01.15.22 symptoms improved with use of Creon; metformin cessation did not change symptoms. ?Biochemical?ferritin, ceruloplasmin, haptoglobin, AMA, ASM, SILAS, AFP, ACNA, ammonia, hepatitis, HIV without pertinent abnormality.?Copper H160, LDL H57, triglycerides H285, CPK H382, A1c H7.1? Contact she transferred care to another GI who d/c?d ursodiol.?EGD and colonoscopy 02.22.22 [facility]?EGD gastritis; small hiatal hernia; irregular GE junction.?Colonoscopy single 1cm sessile polyp.? OV 01.04.23 with nausea, bloating, heartburn and diarrhea 10-12/day since Fall 2020. Landmark is primary food as other foods worsen symptoms. Previously prescribed Creon helpful.?Zenpep samples.?Biochemical?ESR, CRP, lipase, IgG subclasses without pertinent abnormality.?CRP H3.34, lipase H130?Stool calprotectin, lactoferrin C.Difficile, EP WNL? States that she continues to have diarrhea frequently, frequent bloating, and abdominal pain. States that she also a lot of rectal pain and feels like something is protruding from rectum. ROS Const Constitutional: Positive for fatigue, headache(s) and weakness; No fever(s), frequent falls or weight change ENT ENT: Positive for headache(s); No difficulty swallowing Cardio Cardiology: Positive for leg pain with exertion Gastro GI: Positive for abdominal pain, bloating, change in bowel habits, diarrhea, heartburn, nausea/dyspepsia and vomiting; No constipation, difficulty swallowing, Vomiting blood/hematemesis or Blood in stool Musc Musculoskeletal: Positive for abnormal gait, joint pain, back pain, muscle weakness, stiffness, Arthritis and leg pain with exertion; No joint swelling, muscle cramps, numbness, tingling, sciatica or leg pain at night Skin Skin: No dry skin, lesions, itchy eyes or rash Neuro Neurology: Positive for abnormal gait, weakness and headache(s); No dizziness, frequent falls, numbness, tingling, tremor(s), Increased tone in limbs, paralysis or seizures Psych Psychiatric: Positive for anxiety, Positive for depression, No paranoia, No Behavioral Problems, No Compulsive Behavior, No hyperactivity, No inattentiveness, No obsessions/compulsions, No Temper Tantrums and No suicidal ideation Endo Endocrine: Positive for fatigue; No weight change Aller/Imm Allergy/Immunologic: No itchy eyes Tolu/Lymp Hematologic/Lymphatic: No easy bleeding or easy bruising Exam Const General: cooperative Nutritional Appearance: obese Orientation: alert, awake and oriented x3 Eyes Sclera: sclerae normal GI Inspection: obesity Palpation: soft, hepatosplenomegaly present, no masses and tender in the RUQ Skin General: no jaundice Neuro Speech: speech normal Gait: normal gait Psych Mood: congruent mood Quality Reporting Tobacco Screening ([facility]) Smoking Status: Current every day smoker Assessment and Plan Assessment and Plan (1) Diarrhea: Status: Chronic Plan: 62 yr old female with chronic postprandial upper abd pain and bloating, diarrhea, heartburn. Will eval pancreas with blood and stool tests. She did feelbetter last year on PERT (Creon). Also stool tests for inflammation and infection. Samples provided of Zenpep, 1-2 caps with snack, 2-3 caps with meal. Will contact her with results and plan. Will get results from her EGD and colonoscopy at [facility] in 02/2022. f/u next available. (2) Abdominal pain: Status: Chronic Plan: We will give her a sits marker did perform a sits marker test along with a capsule endoscopy to evaluate her bloating. (3) Bloating: Status: Chronic Plan: Likely secondary to bacterial overgrowth we will give her antibiotic for approximately 2 weeks. (4) Heartburn: Status: Chronic Plan: Consider PPI Orders: Orders Abdomen Single View Today K59.00 - Constipation, unspecified I have examined the patient and the H&P has been reviewed. There are no clinicalchanges since date of exam. 07/01/23 0801 <Electronically signed by Uriel Caceres DO> Cosigner Signature (if applicable): CC: Dr. Willam Estrada MD; Uriel Caceres DO~ Signed [facility] Work Phone: History and physical note Author Uriel Caceres [facility] November 28, 2023 9:25am Note Date/Time November 28, 2023 9:2 5am [facility] Medical Records Department [address] [place] [id number] History & Physical Exam 11/28/23923 MR#: [id number] Acct: [id number] Name: GARLAND DE SANTIAGO Rep #:[id number] : 1960 63 From: Uriel Caceres DO PCP: Dr. Willam Estrada MD Status:[facility] Location: [place] [address] History and Physical Date of Admission: 11/28/23 GARLAND ANYI, is a 63 F who presents to the office today for Prior workup: ? Stool H.Pylori, C.diff, lactoferrin, EP WNL. *BGI established 4.7.22 with postprandial abdominal bloating and diarrhea 15+/day with periodic incontinence ? Biochemical CBC, ESR, CMP, CRP, LDH, TSH, JOSE F comp, gastrin, celiac without pertinent abnormality ? Stool O/P, giardia ? CT abd/pel 12.22.21 hepatic steatosis ? Gastric emptying study 12.26.21WNL ? US RUQ and Elastography 01.09.22 hepatic measurement 13.9cm with fatty infiltration stiffness 7kPa OV 01.15.22 symptoms improved with use of Creon; metformin cessation did not change symptoms. ? Biochemical ferritin, ceruloplasmin, haptoglobin, AMA, ASM, SILAS, AFP, ACNA, ammonia, hepatitis, HIV without pertinent abnormality. ? Copper H160, LDL H57, triglycerides H285, CPK H382, A1c H7.1 Contact she transferred care to another GI who d/c?d ursodiol. ? EGD and colonoscopy 02.22.22 [facility] EGD gastritis; small hiatal hernia; irregular GE junction. ? Colonoscopy single 1cm sessile polyp. OV 01.04.23 with nausea, bloating, heartburn and diarrhea 10-12/day since Fall 2020. [employer] is primary food as other foods worsen symptoms. Previously prescribed Creon helpful. Zenpep samples. ? Biochemical ESR, CRP, lipase, IgG subclasses without pertinent abnormality. ? CRP H3.34, lipase H130, CA 19-9 H44 ? Stool calprotectin, lactoferrin C.Difficile, EP WNL ? MRCP 02.12.23 hepatomegaly 21.3cm; s/p cholecystectomy OV 03.21.23 with ongoing loose stool bloating, abdominal and rectal pain ? SITZ 03.25.23 no rings seen on first Xray. Contact 03.26.23 with education regarding fatty liver disease. Restart ursodiol and vit E. ? Biochemical ESR, CRP WNL? CA 19-9 H41 ? Capsule endoscopy 03.27.23 gastritis and duodenitis concern; PPI and carafate Contact 04.09.23 with capsule results. Start sucralfate and PPI US and elastography 04.09.23 hepatic measurement 21.3cm with fatty infiltration, stiffness 7.4kPa; s/p cholecystectomy. Contact 04.15.23 with US/elastography results. Contact 05.22.23 concern for upper abdominal bloating with discomfort/bloating. Willing to try using Creon again; get blood/stool testing ? Biochemical RAST Class I egg white, peanut and milk. ? Stool elastase L145 ? EGD 07.01.23 irregular Zline 35; gastritis; few localized 2mm erosions; duodenitis. Metaplasia, H.pylori neg OV 08.26.23 continues to have postprandial bloating, loose stools that are not as severe and intermittent tenesmus; concern for hemorrhoid that is bleeding nicole perianal sore knot. Diet has been changed to eliminate white flour, white sugar, egg and peanut. Did not attempt to eliminate dairy but has reduced this. ROS Const Constitutional: Positive for fatigue, headache(s) and weakness; No fever(s), frequent falls or weight change ENT ENT: Positive for headache(s); No difficulty swallowing Cardio Cardiology: Positive for leg pain with exertion Gastro GI: Positive for abdominal pain, bloating, change in bowel habits, diarrhea, heartburn, nausea/dyspepsia and vomiting; No constipation, difficulty swallowing, Vomiting blood/hematemesis or Blood in stool Musc Musculoskeletal: Positive for abnormal gait, joint pain, back pain, muscle weakness, stiffness, Arthritis and leg pain with exertion; No joint swelling, muscle cramps, numbness, tingling, sciatica or leg pain at night Skin Skin: No dry skin, lesions, itchy eyes or rash Neuro Neurology: Positive for abnormal gait, weakness and headache(s); No dizziness, frequent falls, numbness, tingling, tremor(s), Increased tone in limbs, paralysis or seizures Psych Psychiatric: Positive for anxiety, Positive for depression, No paranoia, No Behavioral Problems, No Compulsive Behavior, No hyperactivity, No inattentiveness, No obsessions/compulsions, No Temper Tantrums and No suicidal ideation Endo Endocrine: Positive for fatigue; No weight change Aller/Imm Allergy/Immunologic: No itchy eyes Tolu/Lymp Hematologic/Lymphatic: No easy bleeding or easy bruising Exam Const General: cooperative Nutritional Appearance: obese Orientation: alert, awake and oriented x3 Eyes Sclera: sclerae normal GI Inspection: obesity Palpation: soft, hepatosplenomegaly present, no masses and tender in the RUQ Skin General: no jaundice Neuro Speech: speech normal Gait: normal gait Psych Mood: congruent mood Quality Reporting Tobacco Screening ([facility]) Smoking Status: Current every day smoker Assessment and Plan Assessment and Plan (1) Diarrhea: Status: Chronic Qualifiers: Diarrhea type: functional diarrhea Qualified Code(s): K59.1 - Functional diarrhea Plan: 62 yr old female with chronic postprandial upper abd pain and bloating, diarrhea, heartburn. Will eval pancreas with blood and stool tests. She did feelbetter last year on PERT (Creon). Also stool tests for inflammation and infection. Samples provided of Zenpep, 1-2 caps with snack, 2-3 caps with meal. Will contact her with results and plan. Will get results from her EGD and colonoscopy at [facility] in 02/2022. f/u next available. (2) Abdominal pain: Status: Chronic Qualifiers: Abdominal location: generalized Qualified Code(s): R10.84 - Generalizedabdominal pain Plan: We will give her a sits marker did perform a sits marker test along with a capsule endoscopy to evaluate her bloating. (3) Bloating: Status: Chronic Plan: Likely secondary to bacterial overgrowth we will give her antibiotic for approximately 2 weeks. (4) Hemorrhoid: Status: Chronic Qualifiers: Hemorrhoid type: second degree Qualified Code(s): K64.1 - Second degreehemorrhoids Plan: She will undergo colonoscopy with evaluation of her lower GI tract. She will also need banding endoscopically and possibly Botox therapy. (5) Heartburn: Status: Chronic Plan: Consider PPI (6) Gastroparesis: Status: Acute Plan: Gastroparesis of unknown cause at this time poss sec to medication aside. We repeat her gastric emptying study. (7) Nonalcoholic fatty liver disease: Status: Acute Plan: Her last FibroScan had shown that her liver was 7.4 kPa. Her liver span was approximately 20 cm. She is on ursodiol 250 mg twice daily and she is on vitamin E 800 international units a day. We will repeat LFTs and repeat ultrasound and FibroScan. We will discussed weight loss and other methods for reduction of fat in the liver. Orders: Orders Gastric Emptying Study Today E11.9 - Type 2 diabetes mellitus without complications, K64.9 - Unspecified hemorrhoids, R14.0 - Abdominal distension (gaseous) ABD Limited w/ Elastography Today K64.9 - Unspecified hemorrhoids, R14.0 - Abdominal distension (gaseous) Colonoscopy Today K64.9 - Unspecified hemorrhoids Medications: New sucralfate 1 g PO BID 60 tabs 0RF I have examined the patient and the H&P has been reviewed. There are no clinicalchanges since date of exam. 11/28/23924 <Electronically signed by Uriel Caceres DO> Cosigner Signature (if applicable): CC: Dr. Willam Estrada MD; Uriel Caceres DO~ Signed [facility] Work Phone: Hospital Discharge instructions Additional Instructions Cardiac work-up negative chest x-ray negative. Discussed with your doctor for different nebulizer, stop smoking. Follow-up with your doctor return if worsening symptoms.[facility] Work Phone: Hospital Discharge instructions Additional Instructions For the next 4 days or so, take 1 potassium tablet twice per dayWSum[facility] Work Phone: Hospital Discharge instructionsAmbulatory Orders* Pain Management Location: None [facility] Work Phone: Reason for referral (narrative)* Outpatient Procedure (Routine) - Authorized Specialty Diagnoses / Procedures Referred By Milka ulloa Referred To Contact [facility] Diagnoses Epigastric abdominal pain Procedures EGD DIAGNOSTIC ESOPHAGOGASTRODUODENOSC OPY TRANSORAL DIAGNOSTIC Patti Manrique MD [address] [facility] [place] [address] [facility] [address] [place] [address] Referral ID Status Reason Start Date Expiration Date Visits Requested Visits Authorized [id number] Authorized Auto-Generat ed Referral 02/09/2022 02/09/2023 1 1 * Outpatient Procedure (Routine) - Authorized Specialty Diagnoses / Procedures Referred By Contac t Referred To [facility] Diagnoses Rectal bleeding Procedures COLONOSCOPY DIAGNOSTIC COLONOSCOPY FLX DX W/COLLJ SPEC WHEN PFRMD Patti Manrique MD [address] [facility] [place] [address] [facility] [address] [place] [address] Referral ID Status Reason Start Date Expiration Date Visits Requested Visits Authorized [id number] Authorized Auto-Generat ed Referral 02/09/2022 02/09/2023 1 1 [facility] for referral (narrative)* Outpatient Procedure (Routine) - Closed Specialty Diagnoses / Procedures Referred By Contac t Referred To [facility] Diagnoses Epigastric abdominal pain Procedures EGD DIAGNOSTIC ESOPHAGOGASTRODUODENOSC OPY TRANSORAL DIAGNOSTIC Patti Manrique MD [address] [facility] [place] [address] [facility] [address] [place] [address] Referral ID Status Reason Start Date Expiration Date V isits Requested Visits Authorized [id number] Closed Auto-Generate d Referral 02/09/2022 02/09/2023 1 1 * Outpatient Procedure (Routine) - Closed Specialty Diagnoses / Procedures Referred By Contac t Referred To [facility] Diagnoses Rectal bleeding Procedures COLONOSCOPY DIAGNOSTIC COLONOSCOPY FLX DX W/COLLJ SPEC WHEN Patti Shipley MD [address] [place] [address] [facility] [place] [address] [place] [address] Referral ID Status Reason Start Date Expiration Date V isits Requested Visits Authorized [id number] Closed Auto-Generate d Referral 02/09/2022 02/09/2023 1 1 [facility] for referral (narrative)* Diagnostic Procedure Only (Routine) - Authorized Specialty Diagnoses / Procedures Referred By Contac t Referred To Contact [facility] Diagnoses Lower abdominal pain Procedures US FEMALE PELVIS TRANSVAG US TRANSVAGINAL Diana Andres APRN.PARTS DEPARTMENT MANAGER [address] [place] [address] [facility] Referral ID Status Reason Start Date Expiration Date Visits Requested Visits Authorized [id number] Authorized Auto-Generat ed Referral 2 08/08/2023 1 1 * Diagnostic Procedure Only (Routine) - Authorized Specialty Diagnoses / Procedures Referred By Contac t Referred To Contact [facility] Diagnoses Lower abdominal pain Procedures US FEMALE PELVIS TRANSABD LTD US PELVIC NONOBSTETRIC IMAGE DCMTN LIMITED/F/U Diana Andres APRN.PARTS DEPARTMENT MANAGER [address] [place] [address] [facility] Referral ID Status Reason Start Date Expiration Date Visits Requested Visits Authorized [id number] Authorized Auto-Generat ed Referral 2 08/08/2023 1 1 [facility] for referral (narrative)* Outpatient Procedure (Routine) - Authorized Specialty Diagnoses / Procedures Referred By Contac t Referred To Contact [facility] Diagnoses Essential hypertension Pain in both lower extremities Foot pain, bilateral Cigarette smoker Type 2 diabetes mellitus with diabetic neuropathy, without long-term current use of insulin (HCC) Diminished pulses in lower extremity Procedures PVR LEG [facility] NON-INVASIVE PHYSIOLOGIC STUDY EXTREMITY 3 Willam Connor MD [address] [place] [address] [facility] [place] [facility] [place] [address] Referral ID Status Reason Start Date Expiration Date Visits Requested Visits Authorized [id number] Authorized Auto-Generat ed Referral 10/08/2022 10/08/2023 1 1 [facility] for referral (narrative)* Outpatient Procedure (Routine) - Authorized Specialty Diagnoses / Procedures Referred By Contac t Referred To Contact [facility] Diagnoses Stage 2 moderate COPD by GOLD classification ([facility]) Procedures LUNG DIFFUSION CAPACITY (DLCO) DIFFUSING CAPACITY Leila Rubi PA-C [address] [place] [address] [address] Referral ID Status Reason Start Date Expiration Date Visits Requested Visits Authorized [id number] Authorized Auto-Generat ed Referral 12/21/2022 01/20/2024 1 1 * Outpatient Procedure (Routine) - Authorized Specialty Diagnoses / Procedures Referred By Contac t Referred To Contact [facility] Diagnoses Stage 2 moderate COPD by GOLD classification ([facility]) Procedures SPIROMETRY BASELINE ONLY SPMTRY W/VC EXPIRATORY WEST W/WO MXML VOL VNTJ Leila Rubi PA-C [address] [place] [address] [address] Referral ID Status Reason Start Date Expiration Date Visits Requested Visits Authorized [id number] Authorized Auto-Generat ed Referral 12/21/2022 01/20/2024 1 1 [facility] for referral (narrative)* Diagnostic Procedure Only (Routine) - Closed Specialty Diagnoses / Procedures Referred By Contac t Referred To Contact [facility] Diagnoses Lower abdominal pain Procedures US FEMALE PELVIS TRANSVAG US TRANSVAGINAL Diana Andres APRN.PARTS DEPARTMENT MANAGER [address] [place] [address] [place] [address] Referral ID Status Reason Start Date Expiration Date V isits Requested Visits Authorized [id number] Closed Auto-Generate d Referral 07/09/2022 08/08/2023 1 1 * Diagnostic Procedure Only (Routine) - Closed Specialty Diagnoses / Procedures Referred By Contac t Referred To Contact [facility] Diagnoses Lower abdominal pain Procedures US FEMALE PELVIS TRANSABD LTD US PELVIC NONOBSTETRIC IMAGE DCMTN LIMITED/F/U Diana Andres APRN.PARTS DEPARTMENT MANAGER [address] [place] [address] [place] [address] Referral ID Status Reason Start Date Expiration Date V isits Requested Visits Authorized [id number] Closed Auto-Generate d Referral 07/09/2022 08/08/2023 1 1 [facility] for referral (narrative)* Diagnostic Procedure Only (Routine) - Closed Specialty Diagnoses / Procedures Referred By Contac t Referred To Contact [facility] Diagnoses Encounter for screening mammogram for breast cancer Procedures JAVIER SCREENING SCREENING MAMMOGRAPHY BI 2-VIEW BREAST INC CAD Willam Estrada MD [address] [place] [address] [facility] [address] [place] [address] Referral ID Status Reason Start Date Expiration Date V isits Requested Visits Authorized [id number] Closed Auto-Generate d Referral 08/07/2022 09/06/2023 1 1 [facility] for referral (narrative)* Diagnostic Procedure Only (Routine) - Closed Specialty Diagnoses / Procedures Referred By Contac t Referred To Contact X[facility] IMAGING Diagnoses Acute pain of right shoulder Procedures XR SHOULDER GENERAL 3V OR MORE AP/TRUE AP/OTHER RIGHT RADEX SHOULDER COMPLETE MINIMUM 2 VIEWS Willam Estrada MD [facility] [place] [address] X[facility] [place] [address] Referral ID Status Reason Start Date Expiration Date V isits Requested Visits Authorized [id number] Closed Auto-Generate d Referral 07/23/2023 08/21/2024 1 1 [facility] for referral (narrative)* Outpatient Procedure (Routine) - Authorized Specialty Diagnoses / Procedures Referred By Contac t Referred To Contact [facility] Diagnoses Asthma with COPD (HCC) Procedures NITRIC OXIDE, EXHALED NITRIC OXIDE GAS DETERMINATION Mona Corrigan MD [address] [place] [address] [place] [address] Referral ID Status Reason Start Date Expiration Date Visits Requested Visits Authorized [id number] Authorized Auto-Generat ed Referral 11/05/2023 12/04/2024 1 1 * Outpatient Procedure (Routine) - Authorized Specialty Diagnoses / Procedures Referred By Contac t Referred To [facility] Diagnoses Asthma with COPD (HCC) Procedures SPIROMETRY WITH DILATOR IF OBSTRUCTED BRNCDILAT RSPSE SPMTRY PRE&POST-BRNCDILAT ADMN Mona Corrigan MD [address] [place] [address] [place] [address] Referral ID Status Reason Start Date Expiration Date Visits Requested Visits Authorized [id number] Authorized Auto-Generat ed Referral 11/05/2023 12/04/2024 1 1 [facility] for referral (narrative)* Diagnostic Procedure Only (Routine) - Closed Specialty Diagnoses / Procedures Referred By Contac t Referred To Contact [facility] Diagnoses Injury of toe on left foot, initial encounter Procedures XR FOOT GENERAL 3V AP/LAT/OBL LEFT RADEX FOOT COMPLETE MINIMUM 3 VIEWS Allegra Berumen APRN.PARTS DEPARTMENT MANAGER [address] [place] [address] [place] [address] Referral ID Status Reason Start Date Expiration Date V isits Requested Visits Authorized [id number] Closed Auto-Generate d Referral 02/18/2024 03/19/2025 1 1 [facility] for referral (narrative)* Diagnostic Procedure Only (Urgent) - Closed Specialty Diagnoses / Procedures Referred By Contac t Referred To Contact [facility] Diagnoses Elbow swelling, right Procedures XR ELBOW SPECIAL VIEWS AP/LAT/OTHER RIGHT RADEX ELBOW COMPLETE MINIMUM 3 VIEWS Felipe Jolly APRN.PARTS DEPARTMENT MANAGER [address] [facility] [place] [address] [place] [address] Referral ID Status Reason Start Date Expiration Date V isits Requested Visits Authorized [id number] Closed Auto-Generate d Referral 03/04/2024 04/03/2025 1 1 [facility] for referral (narrative)* Diagnostic Procedure Only (Urgent) - Closed Specialty Diagnoses / Procedures Referred By Contac t Referred To Contact X[facility] IMAGING Diagnoses Elbow swelling, right Procedures XR ELBOW SPECIAL VIEWS AP/LAT/OTHER RIGHT RADEX ELBOW COMPLETE MINIMUM 3 VIEWS Felipe Jolly APRN.PARTS DEPARTMENT MANAGER [address] [place] [address] [place] [address] Referral ID Status Reason Start Date Expiration Date V isits Requested Visits Authorized [id number] Closed Auto-Generate d Referral 03/04/2024 04/03/2025 1 1 [facility] for referral (narrative)* Diagnostic Procedure Only (Routine) - Closed Specialty Diagnoses / Procedures Referred By Contac t Referred To Contact X[facility] IMAGING Diagnoses Injury of toe on left foot, initial encounter Procedures XR FOOT GENERAL 3V AP/LAT/OBL LEFT RADEX FOOT COMPLETE MINIMUM 3 VIEWS Allegra Berumen APRN.CNP [facility] [place] [address] [place] [address] Referral ID Status Reason Start Date Expiration Date V isits Requested Visits Authorized [id number] Closed Auto-Generate d Referral 02/18/2024 03/19/2025 1 1 [facility] for referral (narrative)* Diagnostic Procedure Only (Routine) - Closed Specialty Diagnoses / Procedures Referred By Contac t Referred To Contact [facility]AGING Diagnoses Acute pain of right shoulder Procedures XR SHOULDER GENERAL 3V OR MORE AP/TRUE AP/OTHER RIGHT RADEX SHOULDER COMPLETE MINIMUM 2 VIEWS Willam Estrada MD [address] [place] [address] Xr Imaging [facility]95 Referral ID Status Reason Start Date Expiration Date V isits Requested Visits Authorized [id number] Closed Auto-Generate d Referral 07/23/2023 08/21/2024 1 1 [facility] for referral (narrative)* Outpatient Procedure (Routine) - New Request Specialty Diagnoses / Procedures Referred By Contac t Referred To Contact [facility] Diagnoses Neuropathy Procedures EMG(NEURO/NI) NERVE CONDUCTION STUDIES 9-10 STUDIES Indigo Nichols PA-C [facility] [place] [id number] [facility] [place] [address] [place] [address] Referral ID Status Reason Start Date Expiration Date Visits Requested Visits Authorized [id number] New Request Auto-Generat ed Referral 07/29/2025 1 1 [facility] for referral (narrative)* Outpatient Procedure (Routine) - New Request Specialty Diagnoses / Procedures Referred By Milka ulloa Referred To Contact [facility] [place] Diagnoses Neuropathy Procedures EMG(NEURO/NI) NERVE CONDUCTION STUDIES 9-10 STUDIES Indigo Nichols PA-C [address] [place] [address] [facility] [place] [address] [place] [address] Referral ID Status Reason Start Date Expiration Date Visits Requested Visits Authorized [id number] New Request Auto-Generat ed Referral 4 07/31/2025 1 1 * Outpatient Procedure (Routine) - New Request Specialty Diagnoses / Procedures Referred By Milka ulloa Referred To Contact [facility] [place] Diagnoses Neuropathy Procedures EMG(NEURO/NI) NERVE CONDUCTION STUDIES 9-10 STUDIES Indigo Nichols PA-C [address] [place] [address] [address] Referral ID Status Reason Start Date Expiration Date Visits Requested Visits Authorized [id number] New Request Auto-Generat ed Referral 4 07/31/2025 1 1 [facility] for referral (narrative)* Diagnostic Procedure Only (Routine) - Closed Specialty Diagnoses / Procedures Referred By Milka ulloa Referred To Contact [facility] Diagnoses Encounter for screening mammogram for breast cancer Dense breast tissue Procedures JAVIER SCREENING W STARLA SCREENING DIGITAL BREAST TOMOSYNTHESIS BI SCREENING MAMMOGRAPHY BI 2-VIEW BREAST INC CAD Alejandrina Barrios MD [address] [place] [address] [facility] [address] [place] [phone] Referral ID Status Reason Start Date Expiration Date V isits Requested Visits Authorized [id number] Closed Auto-Generate d Referral 10/03/2023 11/01/2024 1 1 [facility] for visit Narrative* Outpatient Procedure (Routine) - Closed Specialty Diagnoses / Procedures Referred By Contac t Referred To Contact [facility] Diagnoses Epigastric abdominal pain Procedures EGD DIAGNOSTIC ESOPHAGOGASTRODUODENOSC OPY TRANSORAL DIAGNOSTIC Patti Manrique MD [address] [facility] [place] [address] [facility] [place] [address] [place] [address] Referral ID Status Reason Start Date Expiration Date V isits Requested Visits Authorized [id number] Closed Auto-Generate d Referral 02/09/2022 02/09/2023 1 1 [facility] for visit Narrative* Diagnostic Procedure Only (Routine) - Closed Specialty Diagnoses / Procedures Referred By Contac t Referred To Contact [facility] Diagnoses Encounter for screening mammogram for breast cancer Procedures JAVIER SCREENING SCREENING MAMMOGRAPHY BI 2-VIEW BREAST INC CAD Willam Estrada MD [address] [place] [address] [facility] [address] [place] [address] Referral ID Status Reason Start Date Expiration Date V isits Requested Visits Authorized [id number] Closed Auto-Generate d Referral 08/07/2022 09/06/2023 1 1 [facility] for visit Narrative* Diagnostic Procedure Only (Urgent) - Closed Specialty Diagnoses / Procedures Referred By Contac t Referred To Contact XR IMAGING Diagnoses Elbow swelling, right Procedures XR ELBOW SPECIAL VIEWS AP/LAT/OTHER RIGHT RADEX ELBOW COMPLETE MINIMUM 3 VIEWS Felipe Jolly, CHRIS.PARTS DEPARTMENT MANAGER [address] [facility] [place] [address] [place] [address] Referral ID Status Reason Start Date Expiration Date V isits Requested Visits Authorized [id number] Closed Auto-Generate d Referral 03/04/2024 04/03/2025 1 1 [facility] for visit Narrative* Diagnostic Procedure Only (Routine) - Closed Specialty Diagnoses / Procedures Referred By Contac t Referred To Contact XR IMAGING Diagnoses Injury of toe on left foot, initial encounter Procedures XR FOOT GENERAL 3V AP/LAT/OBL LEFT RADEX FOOT COMPLETE MINIMUM 3 VIEWS [place], Allegra, SECTION LEADER SCREEN PRINTING.PARTS DEPARTMENT MANAGER [address] [place] [address] [place] [address] Referral ID Status Reason Start Date Expiration Date V isits Requested Visits Authorized [id number] Closed Auto-Generate d Referral 02/18/2024 03/19/2025 1 1 [facility] for visit Narrative* Diagnostic Procedure Only (Routine) - Closed Specialty Diagnoses / Procedures Referred By Contac t Referred To Contact XR IMAGING Diagnoses Acute pain of right shoulder Procedures XR SHOULDER GENERAL 3V OR MORE AP/TRUE AP/OTHER RIGHT RADEX SHOULDER COMPLETE MINIMUM 2 VIEWS Willam Estrada MD [address] [place] [id number] [place] [address] Referral ID Status Reason Start Date Expiration Date V isits Requested Visits Authorized [id number] Closed Auto-Generate d Referral 07/23/2023 08/21/2024 1 1 [facility] for visit Narrative* Diagnostic Procedure Only (Routine) - Closed Specialty Diagnoses / Procedures Referred By Contac t Referred To Contact [facility] Diagnoses Encounter for screening mammogram for breast cancer Dense breast tissue Procedures JAVIER SCREENING W STARLA SCREENING DIGITAL BREAST TOMOSYNTHESIS BI SCREENING MAMMOGRAPHY BI 2-VIEW BREAST INC CAD Alejandrina Barrios MD [address] [place] [id number] [facility] [address] [place] [address] Referral ID Status Reason Start Date Expiration Date V isits Requested Visits Authorized [id number] Closed Auto-Generate d Referral 10/03/2023 11/01/2024 1 1 [facility] for visit Narrative* Diagnostic Procedure Only (Routine) - Closed Specialty Diagnoses / Procedures Referred By Contac t Referred To Contact XR IMAGING Diagnoses Acute right ankle pain Procedures XR ANKLE 2V AP/LAT RIGHT RADIOLOGIC EXAMINATION ANKLE 2 VIEWS Jonnathan Mckeon, DO [address] [place] [address] Phone: tel: fax: [place] [address] Referral ID Status Reason Start Date Expiration Date V isits Requested Visits Authorized [id number] Closed Auto-Generate d Referral 03/02/2025 04/01/2026 1 1 [facility] Summary Purpose Family History No Family History Records Found Relationship Condition Age at Onset Recorded Date/T hali mother Glaucoma Unknown Malignant neoplasm of cervix Unknown Asthma Unknown father Myocardial infarction Unknown Malignant neoplasm Unknown sister Polyp of colon Unknown Disorder of thyroid Unknown Malignant neoplasm of lung Unknown Relationship Condition Age at Onset Recorded Date/T hali mother Glaucoma Unknown Malignant neoplasm of cervix Unknown Asthma Unknown father Myocardial infarction Unknown Malignant neoplasm Unknown Coronary artery disease Unknown History of coronary artery bypass surgery Unknown Aortic aneurysm and dissection Unknown sister Polyp of colon Unknown Disorder of thyroid Unknown Malignant neoplasm of lung Unknown Advance Directives No Advanced Directives Records FoundDocuments on File Type Date Recorded Patient Employment Coach Expl anation Advance Directive(s) 08/10/2021 12:29 PM Advance Directive(s) 07/18/2021 3:57 PM Advance Directive(s) 04/27/2020 12:06 PM Advance Directive(s) 08/07/2019 2:15 PM Advance Directive(s) 02/09/2016 10:35 AM Advance Directive Response Recorded Date/ Time Advance Directives No September 26, 2015 10:28am Living Will No August 21 3:48pm Power of Stonecutter Assistant No August 21, 2021 3:48pm Documents on File Type Date Recorded Patient Employment Coach Expl anation Advance Directive(s) 08/10/2021 12:29 PM Advance Directive(s) 07/18/2021 3:57 PM Advance Directive(s) 04/27/2020 12:06 PM Advance Directive(s) 08/07/2019 2:15 PM Advance Directive(s) 02/09/2016 10:35 AM Documents on File Type Date Recorded Patient Employment Coach Expl anation Advance Directive(s) 02/22/2022 11:18 AM Advance Directive(s) 08/10/2021 12:29 PM Advance Directive(s) 07/18/2021 3:57 PM Advance Directive(s) 04/27/2020 12:06 PM Advance Directive(s) 08/07/2019 2:15 PM Advance Directive(s) 02/09/2016 10:35 AM Documents on File Type Date Recorded Patient Employment Coach Expl anation Advance Directive(s) 02/22/2022 11:18 AM Advance Directive(s) 08/10/2021 12:29 PM Advance Directive(s) 07/18/2021 3:57 PM Advance Directive(s) 04/27/2020 12:06 PM Advance Directive(s) 08/07/2019 2:15 PM Advance Directive(s) 02/09/2016 10:35 AM Advance Directive Response Recorded Date/ Time Advance Directives No September 26, 2015 9:28am Living Will No August 24 7:27pm Power of Stonecutter Assistant No August 24, 2022 7:27pm Advance Directive Response Recorded Date/ Time Advance Directives No September 26, 2015 10:28am Living Will No December 29, 2022 8:15pm Power of Stonecutter Assistant No December 29 8:15pm Advance Directive Response Recorded Date/ Time Advance Directives No September 26, 2015 10:28am Living Will No May 26, 2023 9:50pm Power of Stonecutter Assistant No May 9:50pm Advance Directive Response Recorded Date/ Time Advance Directives No September 26, 2015 10:28am Living Will No May 30, 2023 4:45pm Power of Stonecutter Assistant No May 4:45pm Advance Directive Response Recorded Date/ Time Advance Directives No September 26, 2015 10:28am Living Will No June 27 10:14pm Power of Stonecutter Assistant No June 27, 2023 10:14pm Advance Directive Response Recorded Date/ Time Advance Directives No September 26, 2015 9:28am Living Will No September 20 5:17pm Power of Stonecutter Assistant No September 20, 2023 5:17pm Advance Directive Response Recorded Date/ Time Advance Directives No September 26, 2015 10:28am Living Will No November 26, 2023 12:44pm Power of Stonecutter Assistant No November 25 12:44pm Advance Directive Response Recorded Date/ Time Living Will No May 08 10:47pm Power of Stonecutter Assistant No May 08 10:47pm Advance Directives No September 11, 2024 3:03pm Living Will No August 02 12:49pm Power of Stonecutter Assistant No August 02, 2024 12:49pm Living Will No August 05 9:17pm Power of Stonecutter Assistant No August 05, 2024 9:17pm Living Will No August 09 4:38pm Power of Stonecutter Assistant No August 09, 2024 4:38pm Advance Directive Response Recorded Date/ Time Living Will No May 08 10:47pm Do you have a Healthcare Power of Stonecutter Assistant? No May 08, 2024 10:47pm Advance Directives No September 11, 2024 3:03pm Advance Directive Response Recorded Date/ Time Advance Directives No September 11, 2024 3:03pm Hospital Course Note HNO ID: [id number] Author: Da Knutson Service: Hospital Medicine Author Type: Physician Type: Discharge Summary Filed: 04/30/2020 11:29 AM Note Text: DISCHARGE SUMMARY PATIENT NAME: Garland De Santiago ADMISSION DATE: 04/27/2020 DISCHARGE DATE: 04/30/2020 Attending Physician: Sari Knutson Reason for Hospitalization: Leg pain Final / Principal Diagnosis:Mild lumbar canal stenosis at L3/4 level. ?Moderate to severe lumbar canal stenosis at L4/5 level. Operations During Hospitalization: L4 laminectomy, decompression of L4-5 canal stenosis with bilateral L4, L5 root foraminotomies Procedures During Hospitalization: No procedures performed Hospital Course: Active Hospital Problems Diagnosis Date Noted - Nicotine use disorder, F17.2 04/28/2020 - Cauda equina compression (HCC) 04/27/2020 - Lumbar spinal stenosis 04/27/2020 - Type 2 diabetes mellitus without complication, without long-term current use of insulin (HCC) 02/01/2017 - Obesity (BMI 30.0-34.9) - Essential hyp (more content not included)... Note HNO ID: [id number] Author: Becky Short Service: ? Author Type: Nurse Backhoe Operator Type: Anesthesia Procedure Notes Filed: 04/29/2020 3:27 PM Note Text: ANESTHESIOLOGY PROCEDURE NOTE Airway General Information Procedure Start Time/Medication Administration: 04/29/2020 3:21 PM Patient location during procedure: OR Patient identity confirmed: arm band Staffing Anesthesiologist: Apollo Reeder FLORIST HELPER: Day Short Performed by: FLORIST HELPER Indications and Patient Condition Preoxygenated: yes Patient position: sniffing Manual In-Line Stabilization: No Difficult Mask: No Indications for airway management: anesthesia and airway protection anesthesia circuit Method: asleep Cricoid Pressure: No Final Airway Details Final airway type: endotracheal airway Final Endotracheal Airway: ETT Cuffed: yes Successful intubation technique: direct laryngoscopy Endotracheal tube insertion site: oral Blade: Paulette Blade size: #4 ETT size (mm): 7.5 Measured from: lips Measurement (cm): 22 Placement v (more content not included)... Note HNO ID: [id number] Author: Becky Short Service: ? Author Type: Nurse Backhoe Operator Type: Anesthesia Procedure Notes Filed: 04/29/2020 3:25 PM Note Text: ANESTHESIOLOGY PROCEDURE NOTE PIV General Information SIGNATURE: Day Short APRN.CRNA PATIENT NAME: Garland De Santiago DATE: April 29, 2020 TIME: 3:25 PM CSN: [id number] Note HNO ID: [id number] Author: Tyson Small Service: Neurosurgery Author Type: Physician Type: Brief Op Note Filed: 04/29/2020 5:05 PM Note Text: BRIEF OPERATIVE / PROCEDURE NOTE LOG ID: [id number] SURGERY/PROCEDURE DATE: 04/29/2020 INCISION/PROCEDURE START TIME: 3:22 PM INCISION CLOSE/PROCEDURE END TIME: 05.05 PM SURGEON(S)/PROCEDURALIST(S) AND PROGRAM DIR(S): Surgeon(s) and Role: * Gerri Small - Primary Physician Sales Agent Financial Report Service: Deirdre Preciado (Pa) SURGERY/PROCEDURE(S): L4 laminectomy, decompression of L4-5 canal stenosis with bilateral L4, L4 root foraminotomies Operative microscope used for decompression and foraminotomies ANESTHESIA: General FINDINGS: L4-5 severe facet hypertrophy L4-5 severe canal stenosis with foraminal stenosis due to thick ligamentum flavum ESTIMATED BLOOD LOSS: 15 mls SPECIMENS: None COMPLICATIONS: None PRE-OP/PRE-PROCEDURE DIAGNOSIS: L4-5 lumbar spinal stenosis with neurogenic claudication POST-OP/POST-PROCEDURE DIAGNOSIS: L4-5 lumbar spinal stenosis (more content not included)... Procedure Findings Note HNO ID: [id number] Author: Becky Short Service: ? Author Type: Nurse Backhoe Operator Type: Anesthesia Procedure Notes Filed: 04/29/2020 3:27 PM Note Text: ANESTHESIOLOGY PROCEDURE NOTE Airway General Information Procedure Start Time/Medication Administration: 04/29/2020 3:21 PM Patient location during procedure: OR Patient identity confirmed: arm band Staffing Anesthesiologist: Apollo Reeder FLORIST HELPER: Day Short Performed by: CARLOS Indications and Patient Condition Preoxygenated: yes Patient position: sniffing Manual In-Line Stabilization: No Difficult Mask: No Indications for airway management: anesthesia and airway protection anesthesia circuit Method: asleep Cricoid Pressure: No Final Airway Details Final airway type: endotracheal airway Final Endotracheal Airway: ETT Cuffed: yes Successful intubation technique: direct laryngoscopy Endotracheal tube insertion site: oral Blade: Paulette Blade size: #4 ETT size (mm): 7.5 Measured from: lips Measurement (cm): 22 Placement v (more content not included)... Note HNO ID: [id number] Author: Becky Short Service: ? Author Type: Nurse Backhoe Operator Type: Anesthesia Procedure Notes Filed: 04/29/2020 3:25 PM Note Text: ANESTHESIOLOGY PROCEDURE NOTE PIV General Information SIGNATURE: Day Short, SECTION LEADER SCREEN PRINTING.CARLOS PATIENT NAME: Garland De Santiago DATE: April 29, 2020 TIME: 3:25 PM CSN: [id number] Note HNO ID: [id number] Author: Tyson Small Service: Neurosurgery Author Type: Physician Type: Brief Op Note Filed: 04/29/2020 5:05 PM Note Text: BRIEF OPERATIVE / PROCEDURE NOTE LOG ID: [id number] SURGERY/PROCEDURE DATE: 04/29/2020 INCISION/PROCEDURE START TIME: 3:22 PM INCISION CLOSE/PROCEDURE END TIME: 05.05 PM SURGEON(S)/PROCEDURALIST(S) AND PROGRAM DIR(S): Surgeon(s) and Role: * Gerri Small - Primary Physician Sales Agent Financial Report Service: Deirdre Preciado (Pa) SURGERY/PROCEDURE(S): L4 laminectomy, decompression of L4-5 canal stenosis with bilateral L4, L4 root foraminotomies Operative microscope used for decompression and foraminotomies ANESTHESIA: General FINDINGS: L4-5 severe facet hypertrophy L4-5 severe canal stenosis with foraminal stenosis due to thick ligamentum flavum ESTIMATED BLOOD LOSS: 15 mls SPECIMENS: None COMPLICATIONS: None PRE-OP/PRE-PROCEDURE DIAGNOSIS: L4-5 lumbar spinal stenosis with neurogenic claudication POST-OP/POST-PROCEDURE DIAGNOSIS: L4-5 lumbar spinal stenosis (more content not included)... Chief Complaint and Reason for Visit Chief Complaint CHRONIC RHINOSINUSIT IS COPD SMOKER Amb Documentation STOMACH ISSUES 2ND OPINION E-ORDER E-ORDER Reason for Visit Abdominal pain Diarrhea Chief Complaint CHRONIC RHINOSINUSIT IS COPD SMOKER Amb Documentation STOMACH ISSUES 2ND OPINION E-ORDER E-ORDER ABD PAIN, DIARRHEA *ORAL & IV* Reason for Visit Abdominal pain Diarrhea Chief Complaint CHRONIC RHINOSINUSIT IS COPD SMOKER Amb Documentation STOMACH ISSUES 2ND OPINION E-ORDER E-ORDER ABD PAIN, DIARRHEA *ORAL & IV* NAUSEA, EPIGASTRIC PAIN, EARLY SATIETY, DIARRHEA Reason for Visit Abdominal pain Diarrhea Chief Complaint CHRONIC RHINOSINUSIT IS COPD SMOKER Amb Documentation STOMACH ISSUES 2ND OPINION E-ORDER E-ORDER ABD PAIN, DIARRHEA *ORAL & IV* NAUSEA, EPIGASTRIC PAIN, EARLY SATIETY, DIARRHEA SOB/REF. BROWN ([facility]) FATTY LIVER Reason for Visit Abdominal pain Diarrhea Chest pain Mixed hyperlipidemia SOB (shortness of breath) Benign essential hypertension Chief Complaint CHRONIC RHINOSINUSIT IS COPD SMOKER Amb Documentation STOMACH ISSUES 2ND OPINION E-ORDER E-ORDER ABD PAIN, DIARRHEA *ORAL & IV* NAUSEA, EPIGASTRIC PAIN, EARLY SATIETY, DIARRHEA SOB/REF. [facility] ([facility]) FATTY LIVER 2 WK FU INTLABS Reason for Visit Abdominal pain Diarrhea Chest pain Mixed hyperlipidemia SOB (shortness of breath) Benign essential hypertension Abdominal pain Diarrhea Elevated CPK Fatty liver Mixed hyperlipidemia Type 2 diabetes mellitus Chief Complaint CHRONIC RHINOSINUSIT IS COPD SMOKER Amb Documentation STOMACH ISSUES 2ND OPINION E-ORDER E-ORDER ABD PAIN, DIARRHEA *ORAL & IV* NAUSEA, EPIGASTRIC PAIN, EARLY SATIETY, DIARRHEA SOB/REF. [facility] ([facility]) FATTY LIVER 2 WK FU INTLABS ROJO, SOB, CP Reason for Visit Abdominal pain Diarrhea Chest pain Mixed hyperlipidemia SOB (shortness of breath) Benign essential hypertension Abdominal pain Diarrhea Elevated CPK Fatty liver Mixed hyperlipidemia Type 2 diabetes mellitus Chief Complaint 6 wk FU ABD PAIN FOLLOW UP Reason for Visit Mixed hyperlipidemia Benign essential hypertension Chief Complaint ABD PAIN FOLLOW UP Diarrhea HIGH BLOOD SUGAR GENERAL Chief Complaint HIGH BLOOD SUGAR GENERAL NICOTINE DEP Chief Complaint NICOTINE DEP sob and chest pain Chief Complaint NICOTINE DEP sob and chest pain FU Reason for Visit Abdominal pain Bloating Diarrhea Heartburn Chief Complaint NICOTINE DEP sob and chest pain FU PANCREATITIS Reason for Visit Abdominal pain Bloating Diarrhea Heartburn Chief Complaint sob and chest pain FU PANCREATITIS E-ORDER ABD PAIN Reason for Visit Abdominal pain Bloating Diarrhea Heartburn Chief Complaint sob and chest pain FU PANCREATITIS E-ORDER ABD PAIN 3 MO FU E-ORDER cap endo Reason for Visit Abdominal pain Bloating Diarrhea Heartburn Abdominal pain Bloating Diarrhea Heartburn Chief Complaint sob and chest pain FU PANCREATITIS E-ORDER ABD PAIN 3 MO FU E-ORDER cap endo EORDER Reason for Visit Abdominal pain Bloating Diarrhea Heartburn Abdominal pain Bloating Diarrhea Heartburn Chief Complaint sob and chest pain FU PANCREATITIS E-ORDER ABD PAIN 3 MO FU E-ORDER cap endo EORDER FATTY LIVER Reason for Visit Abdominal pain Bloating Diarrhea Heartburn Abdominal pain Bloating Diarrhea Heartburn Chief Complaint E-ORDER ABD PAIN 3 MO FU E-ORDER cap endo EORDER FATTY LIVER Reason for Visit Abdominal pain Bloating Diarrhea Heartburn Chief Complaint 3 MO FU E-ORDER cap endo EORDER FATTY LIVER HIVES E-ORDER Reason for Visit Abdominal pain Bloating Diarrhea Heartburn Chief Complaint 3 MO FU E-ORDER cap endo EORDER FATTY LIVER HIVES E-ORDER Multiple complaints Reason for Visit Abdominal pain Bloating Diarrhea Heartburn Chief Complaint HIVES E-ORDER Multiple complaints 5 mo fu HEADACHE Reason for Visit Gastroparesis Nonalcoholic fatty liver disease Abdominal pain Bloating Diarrhea Heartburn Hemorrhoid Chief Complaint 5 mo fu HEADACHE BLOATING Reason for Visit Gastroparesis Nonalcoholic fatty liver disease Abdominal pain Bloating Diarrhea Heartburn Hemorrhoid Chief Complaint Admit Date RULE OUT SEPSIS August 02, 2024 11:09am SEPSIS, GRACIELA, UTI August 02, 2024 11:24am RULE OUT SEPSIS August 03, 2024 10:39am RULE OUT SEPSIS August 04, 2024 4:31pm RULE OUT SEPSIS August 05, 2024 12:18pm sob August 05, 2024 8:07pm general illness August 09, 2024 3 :28pm RIGHT LEG PAIN August 10, 2024 1 :48pm CERVICAL MYELOPATHY September 03, 2024 12:24pm LUMBAR SPINE September 08, 2024 3:32pm XRAY September 11, 2024 2: 04pm BP CHECK & EKG October 16, 2024 1 :50pm BP Issues/See Clinical Note October 4:01pm CERV RADIC/RX HERE November 02, 2024 5:00pm RUE/RLE; DM II W/ DIABETIC NEUROPATHY [facility] 2024 12:33pm RUE/RLE; DM II W/ DIABETIC NEUROPATHY [facility] 2024 2:07pm THORACIC/LUMBAR SPINE November 16, 2024 3 :32pm Reason for Visit Admit Date GRACIELA (acute kidney injury) August 02, 2024 11:09am Cervical myelopathy September 08, 2024 3:32pm Hypertension October 30, 2024 4:01pm Degenerative disc disease, lumbar November 16, 2024 3:32pm Degenerative spondylolisthesis November 3:32pm Chief Complaint Admit Date CERVICAL MYELOPATHY September 03, 2024 12:24pm LUMBAR SPINE September 08, 2024 3:32pm XRAY September 11, 2024 2: 04pm BP CHECK & EKG October 16, 2024 1 :50pm BP Issues/See Clinical Note October 4:01pm CERV RADIC/RX HERE November 02, 2024 5:00pm RUE/RLE; DM II W/ DIABETIC NEUROPATHY [facility] 2024 12:33pm RUE/RLE; DM II W/ DIABETIC NEUROPATHY [facility] 2024 2:07pm THORACIC/LUMBAR SPINE November 16, 2024 3 :32pm DDD,PAIN December 18, 2024 4:1 6pm Reason for Visit Admit Date Cervical myelopathy September 08, 2024 3:32pm Hypertension October 30, 2024 4:01pm Degenerative disc disease, lumbar November 16, 2024 3:32pm Degenerative spondylolisthesis November 3:32pm Chief Complaint Admit Date BP CHECK & EKG October 16, 2024 1 :50pm BP Issues/See Clinical Note October 4:01pm CERV RADIC/RX HERE November 02, 2024 5:00pm RUE/RLE; DM II W/ DIABETIC NEUROPATHY [facility] 2024 12:33pm RUE/RLE; DM II W/ DIABETIC NEUROPATHY [facility] 2024 2:07pm THORACIC/LUMBAR SPINE November 16, 2024 3 :32pm DDD,PAIN December 18, 2024 4:1 6pm LUMBAR SPINE December 24, 2024 2:0 6pm CERVICAL/LUMBAR SPINE February 04, 2025 3:3 1pm Reason for Visit Admit Date Hypertension October 30, 2024 4:01pm Degenerative disc disease, lumbar November 16, 2024 3:32pm Degenerative spondylolisthesis November 3:32pm Cervical myelopathy December 24, 2024 2:0 6pm Degenerative disc disease, lumbar December 24, 2024 2:06pm Lumbar stenosis with neurogenic claudica tion December 24, 2024 2:06pm Reason for Referral Specialty Diagnoses / Procedures Referred By Contac t Referred To Contact General Surgery Diagnoses Abdominal bloating Abdominal mass, unspecified abdominal location Procedures CONSULT TO GENERAL SURGERY OFFICE/OUTPATIENT [facility] 60-74 MINUTES Felipe Jolly, SECTION LEADER SCREEN PRINTING.PARTS DEPARTMENT MANAGER [address] [place] [address] Referral ID Status Reason Start Date Expiration Date Visits Requested Visits Authorized [id number] Authorized PCP Requested Referral 02/06/2022 02/06/2023 1 1 Specialty Diagnoses / Procedures Referred By Contac t Referred To Contact [facility] Diagnoses S/P lumbar laminectomy Chronic midline low back pain, unspecified whether sciatica present Spinal stenosis of lumbar region, unspecified whether neurogenic claudication present Gait instability Procedures CONSULT TO PHYSICAL THERAPY PHYSICAL THERAPY EVALUATION HIGH COMPLEX 45 MINS Willam Estrada MD [address] [place] [address] [facility] [place] [address] [place] [address] Referral ID Status Reason Start Date Expiration Date Visits Requested Visits Authorized [id number] Authorized PCP Requested Referral Auto-Generate d Referral 04/06/2022 04/06/2023 99 99 Specialty Diagnoses / Procedures Referred By Contac t Referred To Contact [facility] Diagnoses Acute bilateral low back pain with bilateral sciatica Radiculopathy of lumbar region Spinal stenosis of lumbar region with neurogenic claudication Procedures MRI LUMBAR SPINE WO IVCON MRI SPINAL CANAL LUMBAR W/O CONTRAST MATERIAL Willam Estrada MD [address] [place] [address] [facility] Referral ID Status Reason Start Date Expiration Date Visits Requested Visits Authorized [id number] Authorized Auto-Generat ed Referral 2 09/06/2023 1 1 Specialty Diagnoses / Procedures Referred By Contac t Referred To Contact [facility] Diagnoses Encounter for screening mammogram for breast cancer Procedures JAVIER SCREENING SCREENING MAMMOGRAPHY BI 2-VIEW BREAST INC CAD Willam Estrada MD [address] [place] [address] [facility] [address] [place] [address] Referral ID Status Reason Start Date Expiration Date Visits Requested Visits Authorized [id number] Authorized Auto-Generat ed Referral 2 09/06/2023 1 1 Specialty Diagnoses / Procedures Referred By Contac t Referred To Contact Urology Diagnoses Nocturnal enuresis Procedures CONSULT TO UROLOGY OFFICE/OUTPATIENT [facility] 60-74 MINUTES Allegra Berumen APRN.CNP [address] [place] [address] Referral ID Status Reason Start Date Expiration Date Visits Requested Visits Authorized [id number] Authorized PCP Requested Referral 09/19/2022 09/19/2023 1 1 Specialty Diagnoses / Procedures Referred By Contac t Referred To Contact [facility] Medicine Diagnoses COPD with exacerbation (HCC) Procedures CONSULT TO PULM/CRITICAL CARE OFFICE/OUTPATIENT [facility] 60-74 MINUTES Willam Estrada MD [address] [place] [address] Mona Corrigan MD [address] [place] [address] Referral ID Status Reason Start Date Expiration Date Visits Requested Visits Authorized [id number] Authorized PCP Requested Referral 12/18/2022 12/18/2023 1 1 Specialty Diagnoses / Procedures Referred By Contac t Referred To Contact MR IMAGING Diagnoses Acute bilateral low back pain with bilateral sciatica Radiculopathy of lumbar region Spinal stenosis of lumbar region with neurogenic claudication Procedures MRI LUMBAR SPINE WO IVCON MRI SPINAL CANAL LUMBAR W/O CONTRAST MATERIAL Willam Estrada MD [facility] [place] [address] Mr [facility] [place] [address] Referral ID Status Reason Start Date Expiration Date V isits Requested Visits Authorized [id number] Closed Auto-Generate d Referral 08/07/2022 09/06/2023 1 1 Specialty Diagnoses / Procedures Referred By Contac t Referred To Contact CT IMAGING Diagnoses Tobacco use current Procedures CT LUNG SCREEN WO IVCON COMPUTED TOMOGRAPHY THORAX LW DOSE LNG CA SCR C- Jutsyna Mora, SECTION LEADER SCREEN PRINTING.PARTS DEPARTMENT MANAGER [address] [place] [address] [facility] [place] [address] Referral ID Status Reason Start Date Expiration Date Visits Requested Visits Authorized [id number] Authorized Auto-Generat ed Referral 11/11/2023 12/10/2024 1 1 Referral ID Status Reason Start Date Expiration Date V isits Requested Visits Authorized [id number] Closed Auto-Generate d Referral 11/11/2023 12/10/2024 1 1 Referral ID Status Reason Start Date Expiration Date Visits Requested Visits Authorized [id number] Pending Review Auto-Generat ed Referral 11/25/2023 12/24/2024 1 1 Specialty Diagnoses / Procedures Referred By Contac t Referred To Contact Diagnoses Moderate persistent asthma without complication Willam Estrada MD [address] [place] [address] Referral ID Status Reason Start Date Expiration Date Visits Re quested Visits Authorized [id number] Closed 1 1 Referral ID Status Reason Start Date Expiration Date Visits Re quested Visits Authorized [id number] Closed 1 1 Specialty Diagnoses / Procedures Referred By Contac t Referred To Contact CT IMAGING Diagnoses Lung nodules Procedures CT CHEST WO IVCON DIAGNOSTIC COMPUTED TOMOGRAPHY THORAX W/O Mona Zuniga MD [address] [place] [address] Ct [facility] Referral ID Status Reason Start Date Expiration Date Visits Requested Visits Authorized [id number] Authorized Auto-Generat ed Referral 06/06/2025 1 1 Specialty Diagnoses / Procedures Referred By Contac t Referred To Contact Neurology Diagnoses Type 2 diabetes mellitus with diabetic neuropathy, without long-term current use of insulin (HCC) Procedures CONSULT TO NEUROLOGY OFFICE/OUTPATIENT NEW HIGH MDM 60 MINUTES Willam Estrada MD [address] [place] [address] Referral ID Status Reason Start Date Expiration Date Visits Requested Visits Authorized [id number] Authorized PCP Requested Referral 4 07/09/2025 1 1 Medications Administered Section Inactive Administered Medications - up to 3 most recent administrations Medication Order MAR Action Action Date Dose Rate Site albuterol HFA 90 mcg/actuation 2 Puff (PROVENTIL HFA, VENTOLIN HFA) 2 Puff, INHALATION, EVERY 6 HOURS NEEDED, Starting on Sari 02/22/22 at 1156, Until Sari 02/22/22 at 1401, wheezing/shortness of breath, SHAKE WELL BEFORE USING -Pharmaceutical Waste: Aerosol-, Preprocedure Given 02/22/2022 12:05 PM EDT 2 Puffs Oral benzocaine 20 % mucosal spray (HURRICAINE ONE) MUCOUS MEMBRANE (TOPICAL MOUTH & THROAT), ONCE, 1 dose, On Sari 02/22/22 at 1300, Intraprocedure Given 02/22/2022 1:00 PM EDT 1 application Oral lactated ringers iv infusion 75 mL/hr, INTRAVENOUS, CONTINUOUS, Starting on Sari 02/22/22 at 1200, Until Sari 02/22/22 at 1401, Preprocedure Continued by Anesthesia 02/22/2022 12:39 PM EDT 75 mL/hr New Bag/Syringe/Bottle 02/22/2022 11:57 AM EDT 75 mL/hr 75 mL/hr Health Concerns Infection Onset Date Last Indicated Resolved Time COVID-19 Rule-Out 11/21/2022 11/21/2022 Infection Onset Date Last Indicated Resolved Time COVID-19 Rule-Out 11/21/2022 11/21/2022 11/22/2022 4:28 AM EDT Problem Noted Date High Risk Chronic Disease Home Monitorin g Problem 01/23/2023 Problem Noted Date High Risk Chronic Disease Home Monitorin g Problem 01/23/2023 Problem Noted Date High Risk Chronic Disease Home Monitorin g Problem 01/23/2023 Problem Noted Date Diagnosed Date High Risk Chronic Disease Home Monitoring Proble m 01/23/2023 Problem Noted Date Diagnosed Date High Risk Chronic Disease Home Monitoring Proble 01/23/2023 Problem Noted Date Diagnosed Date High Risk Chronic Disease Home Monitoring Proble 01/23/2023 Problem Noted Date Diagnosed Date High Risk Chronic Disease Home Monitoring Proble 01/23/2023 Problem Noted Date Diagnosed Date High Risk Chronic Disease Home Monitoring Proble 01/23/2023 Problem Noted Date Diagnosed Date High Risk Chronic Disease Home Monitoring [facility] 01/23/2023 Problem Noted Date Diagnosed Date High Risk Chronic Disease Home Monitoring [facility] 01/23/2023 Problem Noted Date Diagnosed Date High Risk Chronic Disease Home Monitoring [facility] 01/23/2023 Problem Noted Date Diagnosed Date High Risk Chronic Disease Home Monitoring [facility] 01/23/2023 Problem Noted Date Diagnosed Date High Risk Chronic Disease Home Monitoring [facility] 01/23/2023 Problem Noted Date Diagnosed Date High Risk Chronic Disease Home Monitoring [facility] 01/23/2023 Problem Noted Date Diagnosed Date High Risk Chronic Disease Home Monitoring [facility] 01/23/2023 Active Problems Noted Date Diagnosed Date High Risk Chronic Disease Home Monitoring [facility] 01/23/2023 Active Problems Noted Date Diagnosed Date High Risk Chronic Disease Home Monitoring [facility] 01/23/2023 Active Problems Noted Date Diagnosed Date High Risk Chronic Disease Home Monitoring [facility] 01/23/2023 Active Problems Noted Date Diagnosed Date High Risk Chronic Disease Home Monitoring [facility] 01/23/2023 Active Problems Noted Date Diagnosed Date High Risk Chronic Disease Home Monitoring [facility] 01/23/2023 Active Problems Noted Date Diagnosed Date High Risk Chronic Disease Home Monitoring [facility] 01/23/2023 Additional Source Comments INFORMATION SOURCE (unrecogn ized section and content) DATE CREATED AUTHOR 03/04/2018 [facility] [employer] ([employer]) DATE CREATED AUTHOR AUTHOR'S ORGANIZ ATION 08/16/2020 [facility] DATE CREATED AUTHOR AUTHOR'S ORGANIZ ATION 02/27/2022 [facility] DATE CREATED AUTHOR AUTHOR'S ORGANIZ ATION 02/05/2025 [facility] DATE CREATED AUTHOR AUTHOR'S ORGANIZ ATION 03/10/2025 [facility] Source Comments (unrecognize d section and content) In the event this informatio n is protected by the Federal Confidentiality of Alcohol and Drug Abuse Patient Records regulations: The Federal rules restrict any use of the information to criminally investigate or prosecute any alcohol or drug abuse patient.[facility] the event this information is protected by the Federal Confidentiality of Alcohol and Drug Abuse Patient Records regulations: The Federal rules restrict any use of the information to criminally investigate or prosecute any alcohol or drug abuse patient.[facility] the event this information is protected by the Federal Confidentiality of Alcohol and Drug Abuse Patient Records regulations: The Federal rules restrict any use of the information to criminally investigate or prosecute any alcohol or drug abuse patient.[facility] the event this information is protected by the Federal Confidentiality of Alcohol and Drug Abuse Patient Records regulations: The Federal rules restrict any use of the information to criminally investigate or prosecute any alcohol or drug abuse patient.[facility] Center[facility] the event this information is protected by the Federal Confidentiality of Alcohol and Drug Abuse Patient Records regulations: The Federal rules restrict any use of the information to criminally investigate or prosecute any alcohol or drug abuse patient.[facility] Center[facility] the event this information is protected by the Federal Confidentiality of Alcohol and Drug Abuse Patient Records regulations: The Federal rules restrict any use of the information to criminally investigate or prosecute any alcohol or drug abuse patient.[facility] Center[facility] the event this information is protected by the Federal Confidentiality of Alcohol and Drug Abuse Patient Records regulations: The Federal rules restrict any use of the information to criminally investigate or prosecute any alcohol or drug abuse patient.[facility] Center[facility] the event this information is protected by the Federal Confidentiality of Alcohol and Drug Abuse Patient Records regulations: The Federal rules restrict any use of the information to criminally investigate or prosecute any alcohol or drug abuse patient.[facility] Center[facility] the event this information is protected by the Federal Confidentiality of Alcohol and Drug Abuse Patient Records regulations: The Federal rules restrict any use of the information to criminally investigate or prosecute any alcohol or drug abuse patient.[facility] Center[facility] the event this information is protected by the Federal Confidentiality of Alcohol and Drug Abuse Patient Records regulations: The Federal rules restrict any use of the information to criminally investigate or prosecute any alcohol or drug abuse patient.[facility] CenterIn the event this information is protected by the Federal Confidentiality of Alcohol and Drug Abuse Patient Records regulations: The Federal rules restrict any use of the information to criminally investigate or prosecute any alcohol or drug abuse patient.[facility] CenterIn the event this information is protected by the Federal Confidentiality of Alcohol and Drug Abuse Patient Records regulations: The Federal rules restrict any use of the information to criminally investigate or prosecute any alcohol or drug abuse patient.[facility] CenterIn the event this information is protected by the Federal Confidentiality of Alcohol and Drug Abuse Patient Records regulations: The Federal rules restrict any use of the information to criminally investigate or prosecute any alcohol or drug abuse patient.[facility] CenterIn the event this information is protected by the Federal Confidentiality of Alcohol and Drug Abuse Patient Records regulations: The Federal rules restrict any use of the information to criminally investigate or prosecute any alcohol or drug abuse patient.[facility] CenterIn the event this information is protected by the Federal Confidentiality of Alcohol and Drug Abuse Patient Records regulations: The Federal rules restrict any use of the information to criminally investigate or prosecute any alcohol or drug abuse patient.[facility] CenterIn the event this information is protected by the Federal Confidentiality of Alcohol and Drug Abuse Patient Records regulations: The Federal rules restrict any use of the information to criminally investigate or prosecute any alcohol or drug abuse patient.[facility] CenterIn the event this information is protected by the Federal Confidentiality of Alcohol and Drug Abuse Patient Records regulations: The Federal rules restrict any use of the information to criminally investigate or prosecute any alcohol or drug abuse patient.[facility] CenterIn the event this information is protected by the Federal Confidentiality of Alcohol and Drug Abuse Patient Records regulations: The Federal rules restrict any use of the information to criminally investigate or prosecute any alcohol or drug abuse patient.[facility] CenterIn the event this information is protected by the Federal Confidentiality of Alcohol and Drug Abuse Patient Records regulations: The Federal rules restrict any use of the information to criminally investigate or prosecute any alcohol or drug abuse patient.[facility] CenterIn the event this information is protected by the Federal Confidentiality of Alcohol and Drug Abuse Patient Records regulations: The Federal rules restrict any use of the information to criminally investigate or prosecute any alcohol or drug abuse patient.[facility] CenterIn the event this information is protected by the Federal Confidentiality of Alcohol and Drug Abuse Patient Records regulations: The Federal rules restrict any use of the information to criminally investigate or prosecute any alcohol or drug abuse patient.[facility] CenterIn the event this information is protected by the Federal Confidentiality of Alcohol and Drug Abuse Patient Records regulations: The Federal rules restrict any use of the information to criminally investigate or prosecute any alcohol or drug abuse patient.[facility] CenterIn the event this information is protected by the Federal Confidentiality of Alcohol and Drug Abuse Patient Records regulations: The Federal rules restrict any use of the information to criminally investigate or prosecute any alcohol or drug abuse patient.[facility] CenterIn the event this information is protected by the Federal Confidentiality of Alcohol and Drug Abuse Patient Records regulations: The Federal rules restrict any use of the information to criminally investigate or prosecute any alcohol or drug abuse patient.[facility] CenterIn the event this information is protected by the Federal Confidentiality of Alcohol and Drug Abuse Patient Records regulations: The Federal rules restrict any use of the information to criminally investigate or prosecute any alcohol or drug abuse patient.[facility] CenterIn the event this information is protected by the Federal Confidentiality of Alcohol and Drug Abuse Patient Records regulations: The Federal rules restrict any use of the information to criminally investigate or prosecute any alcohol or drug abuse patient.[facility] CenterIn the event this information is protected by the Federal Confidentiality of Alcohol and Drug Abuse Patient Records regulations: The Federal rules restrict any use of the information to criminally investigate or prosecute any alcohol or drug abuse patient.[facility] CenterIn the event this information is protected by the Federal Confidentiality of Alcohol and Drug Abuse Patient Records regulations: The Federal rules restrict any use of the information to criminally investigate or prosecute any alcohol or drug abuse patient.[facility] CenterIn the event this information is protected by the Federal Confidentiality of Alcohol and Drug Abuse Patient Records regulations: The Federal rules restrict any use of the information to criminally investigate or prosecute any alcohol or drug abuse patient.[facility] CenterIn the event this information is protected by the Federal Confidentiality of Alcohol and Drug Abuse Patient Records regulations: The Federal rules restrict any use of the information to criminally investigate or prosecute any alcohol or drug abuse patient.[facility] CenterIn the event this information is protected by the Federal Confidentiality of Alcohol and Drug Abuse Patient Records regulations: The Federal rules restrict any use of the information to criminally investigate or prosecute any alcohol or drug abuse patient.[facility] CenterIn the event this information is protected by the Federal Confidentiality of Alcohol and Drug Abuse Patient Records regulations: The Federal rules restrict any use of the information to criminally investigate or prosecute any alcohol or drug abuse patient.[facility] CenterIn the event this information is protected by the Federal Confidentiality of Alcohol and Drug Abuse Patient Records regulations: The Federal rules restrict any use of the information to criminally investigate or prosecute any alcohol or drug abuse patient.[facility] CenterIn the event this information is protected by the Federal Confidentiality of Alcohol and Drug Abuse Patient Records regulations: The Federal rules restrict any use of the information to criminally investigate or prosecute any alcohol or drug abuse patient.[facility] CenterIn the event this information is protected by the Federal Confidentiality of Alcohol and Drug Abuse Patient Records regulations: The Federal rules restrict any use of the information to criminally investigate or prosecute any alcohol or drug abuse patient.[facility] CenterIn the event this information is protected by the Federal Confidentiality of Alcohol and Drug Abuse Patient Records regulations: The Federal rules restrict any use of the information to criminally investigate or prosecute any alcohol or drug abuse patient.[facility] CenterIn the event this information is protected by the Federal Confidentiality of Alcohol and Drug Abuse Patient Records regulations: The Federal rules restrict any use of the information to criminally investigate or prosecute any alcohol or drug abuse patient.[facility] CenterIn the event this information is protected by the Federal Confidentiality of Alcohol and Drug Abuse Patient Records regulations: The Federal rules restrict any use of the information to criminally investigate or prosecute any alcohol or drug abuse patient.[facility] CenterIn the event this information is protected by the Federal Confidentiality of Alcohol and Drug Abuse Patient Records regulations: The Federal rules restrict any use of the information to criminally investigate or prosecute any alcohol or drug abuse patient.[facility] CenterIn the event this information is protected by the Federal Confidentiality of Alcohol and Drug Abuse Patient Records regulations: The Federal rules restrict any use of the information to criminally investigate or prosecute any alcohol or drug abuse patient.[facility] CenterIn the event this information is protected by the Federal Confidentiality of Alcohol and Drug Abuse Patient Records regulations: The Federal rules restrict any use of the information to criminally investigate or prosecute any alcohol or drug abuse patient.[facility] CenterIn the event this information is protected by the Federal Confidentiality of Alcohol and Drug Abuse Patient Records regulations: The Federal rules restrict any use of the information to criminally investigate or prosecute any alcohol or drug abuse patient.[facility] CenterIn the event this information is protected by the Federal Confidentiality of Alcohol and Drug Abuse Patient Records regulations: The Federal rules restrict any use of the information to criminally investigate or prosecute any alcohol or drug abuse patient.[facility] CenterIn the event this information is protected by the Federal Confidentiality of Alcohol and Drug Abuse Patient Records regulations: The Federal rules restrict any use of the information to criminally investigate or prosecute any alcohol or drug abuse patient.[facility] CenterIn the event this information is protected by the Federal Confidentiality of Alcohol and Drug Abuse Patient Records regulations: The Federal rules restrict any use of the information to criminally investigate or prosecute any alcohol or drug abuse patient.[facility] CenterIn the event this information is protected by the Federal Confidentiality of Alcohol and Drug Abuse Patient Records regulations: The Federal rules restrict any use of the information to criminally investigate or prosecute any alcohol or drug abuse patient.[facility]In the event this information is protected by the Federal Confidentiality of Alcohol and Drug Abuse Patient Records regulations: The Federal rules restrict any use of the information to criminally investigate or prosecute any alcohol or drug abuse patient.[facility] CenterIn the event this information is protected by the Federal Confidentiality of Alcohol and Drug Abuse Patient Records regulations: The Federal rules restrict any use of the information to criminally investigate or prosecute any alcohol or drug abuse patient.[facility]In the event this information is protected by the Federal Confidentiality of Alcohol and Drug Abuse Patient Records regulations: The Federal rules restrict any use of the information to criminally investigate or prosecute any alcohol or drug abuse patient.[facility]In the event this information is protected by the Federal Confidentiality of Alcohol and Drug Abuse Patient Records regulations: The Federal rules restrict any use of the information to criminally investigate or prosecute any alcohol or drug abuse patient.[facility]In the event this information is protected by the Federal Confidentiality of Alcohol and Drug Abuse Patient Records regulations: The Federal rules restrict any use of the information to criminally investigate or prosecute any alcohol or drug abuse patient.[facility]In the event this information is protected by the Federal Confidentiality of Alcohol and Drug Abuse Patient Records regulations: The Federal rules restrict any use of the information to criminally investigate or prosecute any alcohol or drug abuse patient.[facility] CenterIn the event this information is protected by the Federal Confidentiality of Alcohol and Drug Abuse Patient Records regulations: The Federal rules restrict any use of the information to criminally investigate or prosecute any alcohol or drug abuse patient.[facility] CenterIn the event this information is protected by the Federal Confidentiality of Alcohol and Drug Abuse Patient Records regulations: The Federal rules restrict any use of the information to criminally investigate or prosecute any alcohol or drug abuse patient.[facility] CenterIn the event this information is protected by the Federal Confidentiality of Alcohol and Drug Abuse Patient Records regulations: The Federal rules restrict any use of the information to criminally investigate or prosecute any alcohol or drug abuse patient.[facility] CenterIn the event this information is protected by the Federal Confidentiality of Alcohol and Drug Abuse Patient Records regulations: The Federal rules restrict any use of the information to criminally investigate or prosecute any alcohol or drug abuse patient.[facility]In the event this information is protected by the Federal Confidentiality of Alcohol and Drug Abuse Patient Records regulations: The Federal rules restrict any use of the information to criminally investigate or prosecute any alcohol or drug abuse patient.[facility] CenterIn the event this information is protected by the Federal Confidentiality of Alcohol and Drug Abuse Patient Records regulations: The Federal rules restrict any use of the information to criminally investigate or prosecute any alcohol or drug abuse patient.[facility]In the event this information is protected by the Federal Confidentiality of Alcohol and Drug Abuse Patient Records regulations: The Federal rules restrict any use of the information to criminally investigate or prosecute any alcohol or drug abuse patient.[facility] CenterIn the event this information is protected by the Federal Confidentiality of Alcohol and Drug Abuse Patient Records regulations: The Federal rules restrict any use of the information to criminally investigate or prosecute any alcohol or drug abuse patient.[facility]In the event this information is protected by the Federal Confidentiality of Alcohol and Drug Abuse Patient Records regulations: The Federal rules restrict any use of the information to criminally investigate or prosecute any alcohol or drug abuse patient.[facility]In the event this information is protected by the Federal Confidentiality of Alcohol and Drug Abuse Patient Records regulations: The Federal rules restrict any use of the information to criminally investigate or prosecute any alcohol or drug abuse patient.[facility]In the event this information is protected by the Federal Confidentiality of Alcohol and Drug Abuse Patient Records regulations: The Federal rules restrict any use of the information to criminally investigate or prosecute any alcohol or drug abuse patient.[facility]In the event this information is protected by the Federal Confidentiality of Alcohol and Drug Abuse Patient Records regulations: The Federal rules restrict any use of the information to criminally investigate or prosecute any alcohol or drug abuse patient.[facility] CenterIn the event this information is protected by the Federal Confidentiality of Alcohol and Drug Abuse Patient Records regulations: The Federal rules restrict any use of the information to criminally investigate or prosecute any alcohol or drug abuse patient.[facility]In the event this information is protected by the Federal Confidentiality of Alcohol and Drug Abuse Patient Records regulations: The Federal rules restrict any use of the information to criminally investigate or prosecute any alcohol or drug abuse patient.[facility]In the event this information is protected by the Federal Confidentiality of Alcohol and Drug Abuse Patient Records regulations: The Federal rules restrict any use of the information to criminally investigate or prosecute any alcohol or drug abuse patient.[facility]In the event this information is protected by the Federal Confidentiality of Alcohol and Drug Abuse Patient Records regulations: The Federal rules restrict any use of the information to criminally investigate or prosecute any alcohol or drug abuse patient.[facility]In the event this information is protected by the Federal Confidentiality of Alcohol and Drug Abuse Patient Records regulations: The Federal rules restrict any use of the information to criminally investigate or prosecute any alcohol or drug abuse patient.[facility]In the event this information is protected by the Federal Confidentiality of Alcohol and Drug Abuse Patient Records regulations: The Federal rules restrict any use of the information to criminally investigate or prosecute any alcohol or drug abuse patient.[facility]In the event this information is protected by the Federal Confidentiality of Alcohol and Drug Abuse Patient Records regulations: The Federal rules restrict any use of the information to criminally investigate or prosecute any alcohol or drug abuse patient.[facility]In the event this information is protected by the Federal Confidentiality of Alcohol and Drug Abuse Patient Records regulations: The Federal rules restrict any use of the information to criminally investigate or prosecute any alcohol or drug abuse patient.[facility]In the event this information is protected by the Federal Confidentiality of Alcohol and Drug Abuse Patient Records regulations: The Federal rules restrict any use of the information to criminally investigate or prosecute any alcohol or drug abuse patient.[facility]In the event this information is protected by the Federal Confidentiality of Alcohol and Drug Abuse Patient Records regulations: The Federal rules restrict any use of the information to criminally investigate or prosecute any alcohol or drug abuse patient.[facility] CenterIn the event this information is protected by the Federal Confidentiality of Alcohol and Drug Abuse Patient Records regulations: The Federal rules restrict any use of the information to criminally investigate or prosecute any alcohol or drug abuse patient.[facility]In the event this information is protected by the Federal Confidentiality of Alcohol and Drug Abuse Patient Records regulations: The Federal rules restrict any use of the information to criminally investigate or prosecute any alcohol or drug abuse patient.[facility]In the event this information is protected by the Federal Confidentiality of Alcohol and Drug Abuse Patient Records regulations: The Federal rules restrict any use of the information to criminally investigate or prosecute any alcohol or drug abuse patient.[facility]In the event this information is protected by the Federal Confidentiality of Alcohol and Drug Abuse Patient Records regulations: The Federal rules restrict any use of the information to criminally investigate or prosecute any alcohol or drug abuse patient.[facility]In the event this information is protected by the Federal Confidentiality of Alcohol and Drug Abuse Patient Records regulations: The Federal rules restrict any use of the information to criminally investigate or prosecute any alcohol or drug abuse patient.[facility]In the event this information is protected by the Federal Confidentiality of Alcohol and Drug Abuse Patient Records regulations: The Federal rules restrict any use of the information to criminally investigate or prosecute any alcohol or drug abuse patient.[facility]In the event this information is protected by the Federal Confidentiality of Alcohol and Drug Abuse Patient Records regulations: The Federal rules restrict any use of the information to criminally investigate or prosecute any alcohol or drug abuse patient.[facility]In the event this information is protected by the Federal Confidentiality of Alcohol and Drug Abuse Patient Records regulations: The Federal rules restrict any use of the information to criminally investigate or prosecute any alcohol or drug abuse patient.[facility]In the event this information is protected by the Federal Confidentiality of Alcohol and Drug Abuse Patient Records regulations: The Federal rules restrict any use of the information to criminally investigate or prosecute any alcohol or drug abuse patient.[facility]In the event this information is protected by the Federal Confidentiality of Alcohol and Drug Abuse Patient Records regulations: The Federal rules restrict any use of the information to criminally investigate or prosecute any alcohol or drug abuse patient.[facility]In the event this information is protected by the Federal Confidentiality of Alcohol and Drug Abuse Patient Records regulations: The Federal rules restrict any use of the information to criminally investigate or prosecute any alcohol or drug abuse patient.[facility]In the event this information is protected by the Federal Confidentiality of Alcohol and Drug Abuse Patient Records regulations: The Federal rules restrict any use of the information to criminally investigate or prosecute any alcohol or drug abuse patient.[facility]In the event this information is protected by the Federal Confidentiality of Alcohol and Drug Abuse Patient Records regulations: The Federal rules restrict any use of the information to criminally investigate or prosecute any alcohol or drug abuse patient.[facility]In the event this information is protected by the Federal Confidentiality of Alcohol and Drug Abuse Patient Records regulations: The Federal rules restrict any use of the information to criminally investigate or prosecute any alcohol or drug abuse patient.[facility]In the event this information is protected by the Federal Confidentiality of Alcohol and Drug Abuse Patient Records regulations: The Federal rules restrict any use of the information to criminally investigate or prosecute any alcohol or drug abuse patient.[facility]In the event this information is protected by the Federal Confidentiality of Alcohol and Drug Abuse Patient Records regulations: The Federal rules restrict any use of the information to criminally investigate or prosecute any alcohol or drug abuse patient.[facility] CenterIn the event this information is protected by the Federal Confidentiality of Alcohol and Drug Abuse Patient Records regulations: The Federal rules restrict any use of the information to criminally investigate or prosecute any alcohol or drug abuse patient.[facility] CenterIn the event this information is protected by the Federal Confidentiality of Alcohol and Drug Abuse Patient Records regulations: The Federal rules restrict any use of the information to criminally investigate or prosecute any alcohol or drug abuse patient.[facility] CenterIn the event this information is protected by the Federal Confidentiality of Alcohol and Drug Abuse Patient Records regulations: The Federal rules restrict any use of the information to criminally investigate or prosecute any alcohol or drug abuse patient.[facility] CenterIn the event this information is protected by the Federal Confidentiality of Alcohol and Drug Abuse Patient Records regulations: The Federal rules restrict any use of the information to criminally investigate or prosecute any alcohol or drug abuse patient.[facility] CenterIn the event this information is protected by the Federal Confidentiality of Alcohol and Drug Abuse Patient Records regulations: The Federal rules restrict any use of the information to criminally investigate or prosecute any alcohol or drug abuse patient.[facility] CenterIn the event this information is protected by the Federal Confidentiality of Alcohol and Drug Abuse Patient Records regulations: The Federal rules restrict any use of the information to criminally investigate or prosecute any alcohol or drug abuse patient.[facility] CenterIn the event this information is protected by the Federal Confidentiality of Alcohol and Drug Abuse Patient Records regulations: The Federal rules restrict any use of the information to criminally investigate or prosecute any alcohol or drug abuse patient.[facility] CenterIn the event this information is protected by the Federal Confidentiality of Alcohol and Drug Abuse Patient Records regulations: The Federal rules restrict any use of the information to criminally investigate or prosecute any alcohol or drug abuse patient.[facility] CenterIn the event this information is protected by the Federal Confidentiality of Alcohol and Drug Abuse Patient Records regulations: The Federal rules restrict any use of the information to criminally investigate or prosecute any alcohol or drug abuse patient.[facility] CenterIn the event this information is protected by the Federal Confidentiality of Alcohol and Drug Abuse Patient Records regulations: The Federal rules restrict any use of the information to criminally investigate or prosecute any alcohol or drug abuse patient.[facility] CenterIn the event this information is protected by the Federal Confidentiality of Alcohol and Drug Abuse Patient Records regulations: The Federal rules restrict any use of the information to criminally investigate or prosecute any alcohol or drug abuse patient.[facility] CenterIn the event this information is protected by the Federal Confidentiality of Alcohol and Drug Abuse Patient Records regulations: The Federal rules restrict any use of the information to criminally investigate or prosecute any alcohol or drug abuse patient.[facility] CenterIn the event this information is protected by the Federal Confidentiality of Alcohol and Drug Abuse Patient Records regulations: The Federal rules restrict any use of the information to criminally investigate or prosecute any alcohol or drug abuse patient.[facility] CenterIn the event this information is protected by the Federal Confidentiality of Alcohol and Drug Abuse Patient Records regulations: The Federal rules restrict any use of the information to criminally investigate or prosecute any alcohol or drug abuse patient.[facility] CenterIn the event this information is protected by the Federal Confidentiality of Alcohol and Drug Abuse Patient Records regulations: The Federal rules restrict any use of the information to criminally investigate or prosecute any alcohol or drug abuse patient.[facility] CenterIn the event this information is protected by the Federal Confidentiality of Alcohol and Drug Abuse Patient Records regulations: The Federal rules restrict any use of the information to criminally investigate or prosecute any alcohol or drug abuse patient.[facility] CenterIn the event this information is protected by the Federal Confidentiality of Alcohol and Drug Abuse Patient Records regulations: The Federal rules restrict any use of the information to criminally investigate or prosecute any alcohol or drug abuse patient.[facility] CenterIn the event this information is protected by the Federal Confidentiality of Alcohol and Drug Abuse Patient Records regulations: The Federal rules restrict any use of the information to criminally investigate or prosecute any alcohol or drug abuse patient.[facility] CenterIn the event this information is protected by the Federal Confidentiality of Alcohol and Drug Abuse Patient Records regulations: The Federal rules restrict any use of the information to criminally investigate or prosecute any alcohol or drug abuse patient.[facility] CenterIn the event this information is protected by the Federal Confidentiality of Alcohol and Drug Abuse Patient Records regulations: The Federal rules restrict any use of the information to criminally investigate or prosecute any alcohol or drug abuse patient.[facility] CenterIn the event this information is protected by the Federal Confidentiality of Alcohol and Drug Abuse Patient Records regulations: The Federal rules restrict any use of the information to criminally investigate or prosecute any alcohol or drug abuse patient.[facility] CenterIn the event this information is protected by the Federal Confidentiality of Alcohol and Drug Abuse Patient Records regulations: The Federal rules restrict any use of the information to criminally investigate or prosecute any alcohol or drug abuse patient.[facility] CenterIn the event this information is protected by the Federal Confidentiality of Alcohol and Drug Abuse Patient Records regulations: The Federal rules restrict any use of the information to criminally investigate or prosecute any alcohol or drug abuse patient.[facility] CenterIn the event this information is protected by the Federal Confidentiality of Alcohol and Drug Abuse Patient Records regulations: The Federal rules restrict any use of the information to criminally investigate or prosecute any alcohol or drug abuse patient.[facility] CenterIn the event this information is protected by the Federal Confidentiality of Alcohol and Drug Abuse Patient Records regulations: The Federal rules restrict any use of the information to criminally investigate or prosecute any alcohol or drug abuse patient.[facility] CenterIn the event this information is protected by the Federal Confidentiality of Alcohol and Drug Abuse Patient Records regulations: The Federal rules restrict any use of the information to criminally investigate or prosecute any alcohol or drug abuse patient.[facility] CenterIn the event this information is protected by the Federal Confidentiality of Alcohol and Drug Abuse Patient Records regulations: The Federal rules restrict any use of the information to criminally investigate or prosecute any alcohol or drug abuse patient.[facility] CenterIn the event this information is protected by the Federal Confidentiality of Alcohol and Drug Abuse Patient Records regulations: The Federal rules restrict any use of the information to criminally investigate or prosecute any alcohol or drug abuse patient.[facility] CenterIn the event this information is protected by the Federal Confidentiality of Alcohol and Drug Abuse Patient Records regulations: The Federal rules restrict any use of the information to criminally investigate or prosecute any alcohol or drug abuse patient.[facility] CenterIn the event this information is protected by the Federal Confidentiality of Alcohol and Drug Abuse Patient Records regulations: The Federal rules restrict any use of the information to criminally investigate or prosecute any alcohol or drug abuse patient.[facility] CenterIn the event this information is protected by the Federal Confidentiality of Alcohol and Drug Abuse Patient Records regulations: The Federal rules restrict any use of the information to criminally investigate or prosecute any alcohol or drug abuse patient.[facility] CenterIn the event this information is protected by the Federal Confidentiality of Alcohol and Drug Abuse Patient Records regulations: The Federal rules restrict any use of the information to criminally investigate or prosecute any alcohol or drug abuse patient.[facility] CenterIn the event this information is protected by the Federal Confidentiality of Alcohol and Drug Abuse Patient Records regulations: The Federal rules restrict any use of the information to criminally investigate or prosecute any alcohol or drug abuse patient.[facility] CenterIn the event this information is protected by the Federal Confidentiality of Alcohol and Drug Abuse Patient Records regulations: The Federal rules restrict any use of the information to criminally investigate or prosecute any alcohol or drug abuse patient.[facility] CenterIn the event this information is protected by the Federal Confidentiality of Alcohol and Drug Abuse Patient Records regulations: The Federal rules restrict any use of the information to criminally investigate or prosecute any alcohol or drug abuse patient.[facility] CenterIn the event this information is protected by the Federal Confidentiality of Alcohol and Drug Abuse Patient Records regulations: The Federal rules restrict any use of the information to criminally investigate or prosecute any alcohol or drug abuse patient.[facility] CenterIn the event this information is protected by the Federal Confidentiality of Alcohol and Drug Abuse Patient Records regulations: The Federal rules restrict any use of the information to criminally investigate or prosecute any alcohol or drug abuse patient.[facility] CenterIn the event this information is protected by the Federal Confidentiality of Alcohol and Drug Abuse Patient Records regulations: The Federal rules restrict any use of the information to criminally investigate or prosecute any alcohol or drug abuse patient.[facility] CenterIn the event this information is protected by the Federal Confidentiality of Alcohol and Drug Abuse Patient Records regulations: The Federal rules restrict any use of the information to criminally investigate or prosecute any alcohol or drug abuse patient.[facility] CenterIn the event this information is protected by the Federal Confidentiality of Alcohol and Drug Abuse Patient Records regulations: The Federal rules restrict any use of the information to criminally investigate or prosecute any alcohol or drug abuse patient.[facility] CenterIn the event this information is protected by the Federal Confidentiality of Alcohol and Drug Abuse Patient Records regulations: The Federal rules restrict any use of the information to criminally investigate or prosecute any alcohol or drug abuse patient.[facility] CenterIn the event this information is protected by the Federal Confidentiality of Alcohol and Drug Abuse Patient Records regulations: The Federal rules restrict any use of the information to criminally investigate or prosecute any alcohol or drug abuse patient.[facility] CenterIn the event this information is protected by the Federal Confidentiality of Alcohol and Drug Abuse Patient Records regulations: The Federal rules restrict any use of the information to criminally investigate or prosecute any alcohol or drug abuse patient.[facility] CenterIn the event this information is protected by the Federal Confidentiality of Alcohol and Drug Abuse Patient Records regulations: The Federal rules restrict any use of the information to criminally investigate or prosecute any alcohol or drug abuse patient.[facility] CenterIn the event this information is protected by the Federal Confidentiality of Alcohol and Drug Abuse Patient Records regulations: The Federal rules restrict any use of the information to criminally investigate or prosecute any alcohol or drug abuse patient.[facility] CenterIn the event this information is protected by the Federal Confidentiality of Alcohol and Drug Abuse Patient Records regulations: The Federal rules restrict any use of the information to criminally investigate or prosecute any alcohol or drug abuse patient.[facility] CenterIn the event this information is protected by the Federal Confidentiality of Alcohol and Drug Abuse Patient Records regulations: The Federal rules restrict any use of the information to criminally investigate or prosecute any alcohol or drug abuse patient.[facility] CenterIn the event this information is protected by the Federal Confidentiality of Alcohol and Drug Abuse Patient Records regulations: The Federal rules restrict any use of the information to criminally investigate or prosecute any alcohol or drug abuse patient.[facility] CenterIn the event this information is protected by the Federal Confidentiality of Alcohol and Drug Abuse Patient Records regulations: The Federal rules restrict any use of the information to criminally investigate or prosecute any alcohol or drug abuse patient.[facility] CenterIn the event this information is protected by the Federal Confidentiality of Alcohol and Drug Abuse Patient Records regulations: The Federal rules restrict any use of the information to criminally investigate or prosecute any alcohol or drug abuse patient.[facility] CenterIn the event this information is protected by the Federal Confidentiality of Alcohol and Drug Abuse Patient Records regulations: The Federal rules restrict any use of the information to criminally investigate or prosecute any alcohol or drug abuse patient.[facility] CenterIn the event this information is protected by the Federal Confidentiality of Alcohol and Drug Abuse Patient Records regulations: The Federal rules restrict any use of the information to criminally investigate or prosecute any alcohol or drug abuse patient.[facility] CenterIn the event this information is protected by the Federal Confidentiality of Alcohol and Drug Abuse Patient Records regulations: The Federal rules restrict any use of the information to criminally investigate or prosecute any alcohol or drug abuse patient.[facility] CenterIn the event this information is protected by the Federal Confidentiality of Alcohol and Drug Abuse Patient Records regulations: The Federal rules restrict any use of the information to criminally investigate or prosecute any alcohol or drug abuse patient.[facility] CenterIn the event this information is protected by the Federal Confidentiality of Alcohol and Drug Abuse Patient Records regulations: The Federal rules restrict any use of the information to criminally investigate or prosecute any alcohol or drug abuse patient.[facility] CenterIn the event this information is protected by the Federal Confidentiality of Alcohol and Drug Abuse Patient Records regulations: The Federal rules restrict any use of the information to criminally investigate or prosecute any alcohol or drug abuse patient.[facility]In the event this information is protected by the Federal Confidentiality of Alcohol and Drug Abuse Patient Records regulations: The Federal rules restrict any use of the information to criminally investigate or prosecute any alcohol or drug abuse patient.[facility] CenterIn the event this information is protected by the Federal Confidentiality of Alcohol and Drug Abuse Patient Records regulations: The Federal rules restrict any use of the information to criminally investigate or prosecute any alcohol or drug abuse patient.[facility] CenterIn the event this information is protected by the Federal Confidentiality of Alcohol and Drug Abuse Patient Records regulations: The Federal rules restrict any use of the information to criminally investigate or prosecute any alcohol or drug abuse patient.[facility] CenterIn the event this information is protected by the Federal Confidentiality of Alcohol and Drug Abuse Patient Records regulations: The Federal rules restrict any use of the information to criminally investigate or prosecute any alcohol or drug abuse patient.[facility] CenterIn the event this information is protected by the Federal Confidentiality of Alcohol and Drug Abuse Patient Records regulations: The Federal rules restrict any use of the information to criminally investigate or prosecute any alcohol or drug abuse patient.[facility] CenterIn the event this information is protected by the Federal Confidentiality of Alcohol and Drug Abuse Patient Records regulations: The Federal rules restrict any use of the information to criminally investigate or prosecute any alcohol or drug abuse patient.[facility] CenterIn the event this information is protected by the Federal Confidentiality of Alcohol and Drug Abuse Patient Records regulations: The Federal rules restrict any use of the information to criminally investigate or prosecute any alcohol or drug abuse patient.[facility] CenterIn the event this information is protected by the Federal Confidentiality of Alcohol and Drug Abuse Patient Records regulations: The Federal rules restrict any use of the information to criminally investigate or prosecute any alcohol or drug abuse patient.[facility] CenterIn the event this information is protected by the Federal Confidentiality of Alcohol and Drug Abuse Patient Records regulations: The Federal rules restrict any use of the information to criminally investigate or prosecute any alcohol or drug abuse patient.[facility] CenterIn the event this information is protected by the Federal Confidentiality of Alcohol and Drug Abuse Patient Records regulations: The Federal rules restrict any use of the information to criminally investigate or prosecute any alcohol or drug abuse patient.[facility] CenterIn the event this information is protected by the Federal Confidentiality of Alcohol and Drug Abuse Patient Records regulations: The Federal rules restrict any use of the information to criminally investigate or prosecute any alcohol or drug abuse patient.[facility] CenterIn the event this information is protected by the Federal Confidentiality of Alcohol and Drug Abuse Patient Records regulations: The Federal rules restrict any use of the information to criminally investigate or prosecute any alcohol or drug abuse patient.[facility] CenterIn the event this information is protected by the Federal Confidentiality of Alcohol and Drug Abuse Patient Records regulations: The Federal rules restrict any use of the information to criminally investigate or prosecute any alcohol or drug abuse patient.[facility] CenterIn the event this information is protected by the Federal Confidentiality of Alcohol and Drug Abuse Patient Records regulations: The Federal rules restrict any use of the information to criminally investigate or prosecute any alcohol or drug abuse patient.[facility] CenterIn the event this information is protected by the Federal Confidentiality of Alcohol and Drug Abuse Patient Records regulations: The Federal rules restrict any use of the information to criminally investigate or prosecute any alcohol or drug abuse patient.[facility] CenterIn the event this information is protected by the Federal Confidentiality of Alcohol and Drug Abuse Patient Records regulations: The Federal rules restrict any use of the information to criminally investigate or prosecute any alcohol or drug abuse patient.[facility] CenterIn the event this information is protected by the Federal Confidentiality of Alcohol and Drug Abuse Patient Records regulations: The Federal rules restrict any use of the information to criminally investigate or prosecute any alcohol or drug abuse patient.[facility] CenterIn the event this information is protected by the Federal Confidentiality of Alcohol and Drug Abuse Patient Records regulations: The Federal rules restrict any use of the information to criminally investigate or prosecute any alcohol or drug abuse patient.[facility] CenterIn the event this information is protected by the Federal Confidentiality of Alcohol and Drug Abuse Patient Records regulations: The Federal rules restrict any use of the information to criminally investigate or prosecute any alcohol or drug abuse patient.[facility] CenterIn the event this information is protected by the Federal Confidentiality of Alcohol and Drug Abuse Patient Records regulations: The Federal rules restrict any use of the information to criminally investigate or prosecute any alcohol or drug abuse patient.[facility] CenterIn the event this information is protected by the Federal Confidentiality of Alcohol and Drug Abuse Patient Records regulations: The Federal rules restrict any use of the information to criminally investigate or prosecute any alcohol or drug abuse patient.[facility] CenterIn the event this information is protected by the Federal Confidentiality of Alcohol and Drug Abuse Patient Records regulations: The Federal rules restrict any use of the information to criminally investigate or prosecute any alcohol or drug abuse patient.[facility] CenterIn the event this information is protected by the Federal Confidentiality of Alcohol and Drug Abuse Patient Records regulations: The Federal rules restrict any use of the information to criminally investigate or prosecute any alcohol or drug abuse patient.[facility] CenterIn the event this information is protected by the Federal Confidentiality of Alcohol and Drug Abuse Patient Records regulations: The Federal rules restrict any use of the information to criminally investigate or prosecute any alcohol or drug abuse patient.[facility] CenterIn the event this information is protected by the Federal Confidentiality of Alcohol and Drug Abuse Patient Records regulations: The Federal rules restrict any use of the information to criminally investigate or prosecute any alcohol or drug abuse patient.[facility] CenterIn the event this information is protected by the Federal Confidentiality of Alcohol and Drug Abuse Patient Records regulations: The Federal rules restrict any use of the information to criminally investigate or prosecute any alcohol or drug abuse patient.[facility] CenterIn the event this information is protected by the Federal Confidentiality of Alcohol and Drug Abuse Patient Records regulations: The Federal rules restrict any use of the information to criminally investigate or prosecute any alcohol or drug abuse patient.[facility] CenterIn the event this information is protected by the Federal Confidentiality of Alcohol and Drug Abuse Patient Records regulations: The Federal rules restrict any use of the information to criminally investigate or prosecute any alcohol or drug abuse patient.[facility] CenterIn the event this information is protected by the Federal Confidentiality of Alcohol and Drug Abuse Patient Records regulations: The Federal rules restrict any use of the information to criminally investigate or prosecute any alcohol or drug abuse patient.[facility] CenterIn the event this information is protected by the Federal Confidentiality of Alcohol and Drug Abuse Patient Records regulations: The Federal rules restrict any use of the information to criminally investigate or prosecute any alcohol or drug abuse patient.[facility] Reason for Visit (unrecogniz ed section and content) Reason Comments PT Progress Note Specialty Diagnoses / Procedures Referred By Contac t Referred To Contact [facility] Diagnoses S/P lumbar laminectomy Chronic midline low back pain, unspecified whether sciatica present Spinal stenosis of lumbar region, unspecified whether neurogenic claudication present Gait instability Procedures CONSULT TO PHYSICAL THERAPY PHYSICAL THERAPY EVALUATION HIGH COMPLEX 45 MINS Willam Estrada MD [address] [place] [address] [facility] [place] [address] [place] [address] Referral ID Status Reason Start Date Expiration Date Visits Requested Visits Authorized [id number] Authorized PCP Requested Referral Auto-Generate d Referral 04/06/2022 04/06/2023 99 99 Reason Comments Physical Therapy Reason Comments Medication Request Reason Onset Date Comments community monitoring outreach 12/13/2021 en rollment Reason Onset Date Comments community monitoring outreach 12/18/2021 en rollment Reason Comments Established Patient 2 month follow up Reason Comments Allied Health Visit [facility] Reason Comments Diarrhea ongoing, now has blo ating and knot in abdominal area x this am Reason Comments Consult abdomen mass, bloati ng Specialty Diagnoses / Procedures Referred By Milka t Referred To Contact General Surgery Diagnoses Abdominal bloating Abdominal mass, unspecified abdominal location Procedures CONSULT TO GENERAL SURGERY OFFICE/OUTPATIENT NEW HIGH MDM 60-74 MINUTES Felipe Jolly APRN.HEIDY [address] [place] [address] Referral ID Status Reason Start Date Expiration Date V isits Requested Visits Authorized [id number] Closed PCP Requested Referral 02/06/2022 02/06/2023 1 1 Reason Onset Date Comments Refill Request 02/23/2022 Reason Comments Follow Up Reason Comments 02-22-2022 COLON EGD LODI Reason Comments Hematuria Reason Comments PT Eval Reason Onset Date Comments Refill Request 04/11/2022 Reason Onset Date Comments Community monitoring outreach 05/15/2022 CD M [facility] triggered call Reason Onset Date Comments Refill Request 06/11/2022 Refill Request 06/12/2022 Reason Comments Follow Up Reason Comments Wheezing With EDWARDS x2 weeks UTI Painful urination, f requency, incontinence x3 weeks Reason Onset Date Comments Community Monitoring Outreach 06/26/2022 In sight CDM Escalation Reason Comments Patient Update Orders Reason Comments Shortness of Breath SOB, Wheezing, on ke flex for UTI Reason Comments Recheck Follow up wheezing, UTI Reason Comments Patient Update Reason Comments Recheck Follow up, thrush in mouth Reason Comments Results Reason Onset Date Comments Refill Request 07/12/2022 Reason Comments Medication Question Reason Onset Date Comments Refill Request 08/05/2022 Reason Comments Covid19 Concern Reason Comments Information Reason Comments Viral Syndrome Reason Comments Orders Reason Comments Follow Up Reason Comments Urology referral Reason Onset Date Comments Community Monitoring Outreach 09/22/2022 CD M Escalation Outreach Reason Comments Urologoy Referral Reason Comments Results Patient is here for MRI results; new upper back pain; BP elevated; right toes turning blue - maybe circulation issue Reason Comments Cough Cough, EDWARDS, ST, wheez ing, SOB and burning chest x 3 days Reason Onset Date Comments Community monitoring outreach 12/04/2022 CD M [facility] triggered escalation Reason Onset Date Comments Refill Request 12/10/2022 Reason Onset Date Comments Refill Request 12/09/2022 Reason Comments High Blood Sugar Reason Comments Patient Update Blood Sugars Reason Comments Established Patient UC follow up 11/21 Reason Comments Thrush concern Reason Comments Established Patient Follow up URI sympto ms, not feeling any better Reason Onset Date Comments Refill Request 02/08/2023 Reason Onset Date Comments Refill Request 03/11/2023 Reason Onset Date Comments Community Monitoring Outreach 03/14/2023 CD M [facility] Outreach Reason Comments Spirometry Specialty Diagnoses / Procedures Referred By Contac t Referred To Contact [facility] Diagnoses Stage 2 moderate COPD by GOLD classification ([facility]) Procedures LUNG DIFFUSION CAPACITY (DLCO) DIFFUSING CAPACITY Liela Rubi PA-C [address] [place] [address] [place] [address] Referral ID Status Reason Start Date Expiration Date V isits Requested Visits Authorized [id number] Closed Auto-Generate d Referral 12/21/2022 01/20/2024 1 1 Specialty Diagnoses / Procedures Referred By Contac t Referred To Contact [facility] [place] Diagnoses Stage 2 moderate COPD by GOLD classification ([facility]) Procedures SPIROMETRY BASELINE ONLY SPMTRY W/VC EXPIRATORY WEST W/WO MXML VOL VNTJ Leila Rubi PA-C [address] [place] [address] [place] [address] Referral ID Status Reason Start Date Expiration Date V isits Requested Visits Authorized [id number] Closed Auto-Generate d Referral 12/21/2022 01/20/2024 1 1 Reason Comments COPD Asthma Reason Comments Chest Congestion wheezing, headache g iven omnicef on 05/24 Reason Comments ER F/U [facility] ER pm 05/26/2023 and 05/30/2023 with hives. Treated with benadryl. Which did help. At second ER visit was given hydroxyzine but that was not effective. Was given a script for prednisone but patient states she can't take this due to breaking out in a sweat and heart racing the last time she took in. Reason Comments Results Patient Update Reason Onset Date Comments Refill Request 06/28/2023 Reason Onset Date Comments Community Monitoring Outreach 07/04/2023 CD M [facility] Outreach Specialty Diagnoses / Procedures Referred By Contac t Referred To Contact MR IMAGING Diagnoses Acute bilateral low back pain with bilateral sciatica Radiculopathy of lumbar region Spinal stenosis of lumbar region with neurogenic claudication Procedures MRI LUMBAR SPINE WO IVCON MRI SPINAL CANAL LUMBAR W/O CONTRAST MATERIAL Willam Estrada MD [address] [place] [address] [place] [address] Referral ID Status Reason Start Date Expiration Date V isits Requested Visits Authorized [id number] Closed Auto-Generate d Referral 08/07/2022 09/06/2023 1 1 Reason Comments Radiology US Specialty Diagnoses / Procedures Referred By Contac t Referred To Contact US IMAGING Diagnoses Lower abdominal pain Procedures US FEMALE PELVIS TRANSVAG US TRANSVAGINAL Diana Andres APRN.PARTS DEPARTMENT MANAGER [address] [place] [address] Us Imaging [facility] Referral ID Status Reason Start Date Expiration Date V isits Requested Visits Authorized [id number] Closed Auto-Generate d Referral 07/09/2022 08/08/2023 1 1 Reason Onset Date Comments Community Monitoring Outreach 07/17/2023 CD M Esc[facility] Outreach Reason Onset Date Comments Community Monitoring Outreach 07/18/2023 Es calation follow up Reason Comments Hypertension Reason Onset Date Comments Refill Request 08/09/2023 Reason Comments Established Patient Multiple concerns Reason Comments Established Patient Follow-Up 6 mo follo w up Reason Onset Date Comments Refill Request 11/08/2023 Specialty Diagnoses / Procedures Referred By Contac t Referred To Contact [facility] Diagnoses Asthma with COPD (HCC) Procedures SPIROMETRY WITH DILATOR IF OBSTRUCTED BRNCDILAT RSPSE SPMTRY PRE&POST-BRNCDILAT Mona Kim MD [address] [place] [address] [facility] [place] [address] [place] [address] Referral ID Status Reason Start Date Expiration Date V isits Requested Visits Authorized [id number] Closed Auto-Generate d Referral 11/05/2023 12/04/2024 1 1 Specialty Diagnoses / Procedures Referred By Contac t Referred To Contact [facility] Diagnoses Asthma with COPD (HCC) Procedures NITRIC OXIDE, EXHALED NITRIC OXIDE GAS DETERMINATION Mona Corrigan MD [address] [place] [address] [facility] [place] [address] [place] [id number] Referral ID Status Reason Start Date Expiration Date V isits Requested Visits Authorized [id number] Closed Auto-Generate d Referral 11/05/2023 12/04/2024 1 1 Reason Comments Lung Cancer Reason Comments Follow Up med refills, c/o hem orrhoid seeing DrJordanFriend next and colonoscopydiscuss getting a new bipap machine last 2013 Reason Comments Orders office notes need addenum done Reason Comments Radiology CT Specialty Diagnoses / Procedures Referred By Contac t Referred To Contact CT IMAGING Diagnoses Tobacco use current Procedures CT LUNG SCREEN WO IVCON COMPUTED TOMOGRAPHY THORAX LW DOSE LNG CA SCR Margaret- Justyna Mora, SECTION LEADER SCREEN PRINTING.PARTS DEPARTMENT MANAGER [address] [place] [address] [place] [address] Referral ID Status Reason Start Date Expiration Date V isits Requested Visits Authorized [id number] Closed Auto-Generate d Referral 11/11/2023 12/10/2024 1 1 Reason Comments Results Reason Comments Muscle biopsy Reason Comments Follow Up Results of multiple tests, discuss ongoing issues Reason Comments Results 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 X5 days Reason Onset Date Comments Transition Of Care 03/26/2024 TCM / OON [place] 03/24/24 Reason Onset Date Comments Refill Request 03/26/2024 Reason Onset Date Comments Refill Request 04/06/2024 Reason Onset Date Comments Transition Of Care 04/09/2024 TCM OON follo wup Reason Comments Difficulty Breathing Reason Onset Date Comments Community Monitoring Outreach 04/28/2024 CD M Telephonic Outreach Reason Comments Established Patient 6 month follow up Reason Comments Dysuria Reason Comments ED Follow-up Hospital F/U [facility] follow up from - 03/24/24 Reason Comments Established Patient X 1 week possible as thma flare up Reason Comments Same Day Appointment X 2 days sore throa t, cough, headache/sinus pressure and not feeling good Reason Onset Date Comments CDM 06/04/2024 Telephonic outre ach Reason Onset Date Comments Refill Request 06/10/2024 Reason Comments Radiology XR Reason Comments Radiology CT Specialty Diagnoses / Procedures Referred By Milka t Referred To Contact CT IMAGING Diagnoses Lung nodules Procedures CT CHEST WO IVCON DIAGNOSTIC COMPUTED TOMOGRAPHY THORAX W/O Mona Zuniga MD [address] [facility] [place] [place] [address] [place] [address] Referral ID Status Reason Start Date Expiration Date V isits Requested Visits Authorized [id number] Closed Auto-Generate d Referral 06/22/2024 06/06/2025 1 1 Reason Onset Date Comments CD 07/03/2024 Telephonic outre ach Reason Comments Neuropathy Reason Onset Date Comments Refill Request 07/10/2024 Reason Comments Ambulatory Social Work Wants a life aler t Reason Onset Date Comments Chronic disease monitoring 07/22/2024 CDM o utreach Reason Comments Ambulatory Social Work Wants a life aler t Reason Comments New Patient DM2, neuropathy Specialty Diagnoses / Procedures Referred By Milka t Referred To Contact Neurology Diagnoses Type 2 diabetes mellitus with diabetic neuropathy, without long-term current use of insulin (HCC) Procedures CONSULT TO NEUROLOGY OFFICE/OUTPATIENT NEW HIGH MDM 60 MINUTES Willam Estrada MD [address] [place] [address] Referral ID Status Reason Start Date Expiration Date V isits Requested Visits Authorized [id number] Closed PCP Requested Referral 07/09/2024 07/09/2025 1 1 Reason Comments Ambulatory Social Work Patient asking fo r a PERS unit. Reason Comments Orders Reason Comments Urinary Problem pain with urination and frequency x last night Reason Comments Orders For bath/shower alirio r Reason Comments Infection Reason Onset Date Comments Transition Of Care 08/07/2024 TCM/ OON [place] dc 08/05 Reason Comments Ambulatory Social Work Follow up re Dire ction Home referral Reason Comments Established Patient Pneumonia Reason Comments ER F/U [facility] 08/02/24-Pneumon ia & Hypotension Reason Comments Ambulatory Social Work Follow up for in home care/ Direction Home Reason Onset Date Comments Refill Request 09/11/2024 Reason Onset Date Comments Refill Request 09/14/2024 Reason Comments Insurance Authorization Specialty Diagnoses / Procedures Referred By Contac t Referred To Contact CT IMAGING Diagnoses Tobacco use current Procedures CT LUNG SCREEN WO IVCON COMPUTED TOMOGRAPHY THORAX LW DOSE LNG CA SCR Margaret- Justyna Mora, SECTION LEADER SCREEN PRINTING.PARTS DEPARTMENT MANAGER [address] [place] [address] Phone: tel: fax: [facility] [place] [address] Referral ID Status Reason Start Date Expiration Date V isits Requested Visits Authorized [id number] Closed Auto-Generate d Referral 11/25/2023 12/24/2024 1 1 Reason Comments Established Patient Neuropathy, tx kevin- c/o neuropathy worsening Specialty Diagnoses / Procedures Referred By Contac t Referred To Contact Neurology Diagnoses Type 2 diabetes mellitus with diabetic neuropathy, without long-term current use of insulin (HCC) Procedures CONSULT TO NEUROLOGY OFFICE/OUTPATIENT [facility] 60 MINUTES Willam Estrada MD [address] [place] [address] Phone: tel: fax: Referral ID Status Reason Start Date Expiration Date V isits Requested Visits Authorized [id number] Closed PCP Requested Referral 07/09/2024 07/09/2025 1 1 Reason Comments Established Patient COPD Reason Comments Follow Up question about alter jamul for albuterol inhaler, insurance no longer covers, med refills needed Reason Comments Forms Reason Onset Date Comments Refill Request 11/29/2024 Reason Onset Date Comments Population Health Navigation Outreach 12/04/2024 ACO High Risk - attempt 1 Reason Onset Date Comments Population Health Navigation Outreach 12/09/2024 ACO High Risk - attempt 2 Reason Comments Urinary Frequency Frequency, urgency a nd pressure x 4 days and wheezing x 4 days Reason Comments UTI Frequency, urgency, burning x3 weeks, fatigue and chest tightness Reason Onset Date Comments Results 02/27/2025 Reason Comments New Patient Specialty Diagnoses / Procedures Referred By Milka t Referred To Contact Vascular Surgery Diagnoses Family history of abdominal aortic aneurysm (AAA) Ectasia of artery Procedures CONSULT TO VASCULAR SURGERY OFFICE/OUTPATIENT NEW HIGH MDM 60 MINUTES Leila Rubi PA-C [address] [place] [address] Phone: tel: fax: Referral ID Status Reason Start Date Expiration Date V isits Requested Visits Authorized [id number] Closed PCP Requested Referral 11/25/2024 11/25/2025 1 1 Reason Onset Date Comments Refill Request 03/07/2025 Care Teams (unrecognized sec tion and content) Supervisor Ship Maintenance Services Relationship Specialty Start Date End Date Willam Estrada MD [address] [place] [address] PCP - General 01/15/06 Supervisor Ship Maintenance Services Relationship Specialty Start Date End Date Willam Estrada MD [address] [place] [address] PCP - General 01/15/06 Supervisor Ship Maintenance Services Relationship Specialty Start Date End Date Willam Estrada MD [address] [place] [address] PCP - General 01/15/06 Supervisor Ship Maintenance Services Relationship Specialty Start Date End Date Willam Estrada MD [facility] [place] [address] PCP - General 01/15/06 Kimmy Mariscal, [place] [address] [place] [address] Scrap Charger 12/18/21 Supervisor Ship Maintenance Services Relationship Specialty Start Date End Date Willam Estrada MD [facility] [place], [place] [address] PCP - General 01/15/06 [place] [address] [place] [address] Scrap Charger 12/18/21 Supervisor Ship Maintenance Services Relationship Specialty Start Date End Date Willam Estrada MD [address] [place] [address] PCP - General 01/15/06 [place] [address] [place] [address] Scrap Charger 12/18/21 Supervisor Ship Maintenance Services Relationship Specialty Start Date End Date Willam Estrada MD [address] [place] [address] PCP - General 01/15/06 [place] [address] [place] [address] Scrap Charger 12/18/21 Supervisor Ship Maintenance Services Relationship Specialty Start Date End Date Willam Estrada MD [address] [place] [address] PCP - General 01/15/06 Leila Lawton, division operations managerScrap Charger 02/07/22 Supervisor Ship Maintenance Services Relationship Specialty Start Date End Date Willam Estrada MD [address] [place] [address] PCP - General 01/15/06 [place] [address] [place] [address] Scrap Charger 12/18/2102/06 Leila Lawton, division operations managerScrap Charger 02/07/22 Supervisor Ship Maintenance Services Relationship Specialty Start Date End Date Willam Estrada MD [address] [place] [address] PCP - General 01/15/06 Leila Lawton, division operations managerScrap Charger 02/07/22 Supervisor Ship Maintenance Services Relationship Specialty Start Date End Date Willam Estrada MD [address] [place] [address] PCP - General 01/15/06 Supervisor Ship Maintenance Services Relationship Specialty Start Date End Date Willam Estrada MD [address] [place] [address] PCP - General 01/15/06 Leila Lawton, division operations managerScrap Charger 02/07/22 Supervisor Ship Maintenance Services Relationship Specialty Start Date End Date Willam Estrada MD [address] [place] [address] PCP - General 01/15/06 [place] [address] [place] [id number] Scrap Charger 12/18/2102/06 Supervisor Ship Maintenance Services Relationship Specialty Start Date End Date Willam Estrada MD [address] [place] [address] PCP - General 01/15/06 Leila Lawton, division operations managerScrap Charger 02/07/22 Supervisor Ship Maintenance Services Relationship Specialty Start Date End Date Willam Estrada MD [address] [place] [address] PCP - General 01/15/06 Leila Lawton, division operations managerScrap Charger 02/07/22 Supervisor Ship Maintenance Services Relationship Specialty Start Date End Date Willam Estrada MD [address] [place] [address] PCP - General 01/15/06 Leila Lawton, division operations managerScrap Charger 02/07/22 Supervisor Ship Maintenance Services Relationship Specialty Start Date End Date Willam Estrada MD [address] [facility] [place] [address] PCP - General 01/15/06 Leila Lawton, division operations managerScrap Charger 02/07/22 Supervisor Ship Maintenance Services Relationship Specialty Start Date End Date Willam Estrada MD [address] [facility] [place] [address] PCP - General 01/15/06 Leila Lawton, division operations managerScrap Charger 02/07/22 Supervisor Ship Maintenance Services Relationship Specialty Start Date End Date Willam Estrada MD [address] [facility] [place] [address] PCP - General 01/15/06 Leila Lawton, division operations managerScrap Charger 02/07/22 Supervisor Ship Maintenance Services Relationship Specialty Start Date End Date Willam Estrada MD [address] [facility] [place] [address] PCP - General 01/15/06 Leila Lawton, division operations managerScrap Charger 02/07/22 Supervisor Ship Maintenance Services Relationship Specialty Start Date End Date Willam Estrada MD [address] [facility] [place] [address] PCP - General 01/15/06 Leila Lawton, division operations managerScrap Charger 02/07/22 Supervisor Ship Maintenance Services Relationship Specialty Start Date End Date Willam Estrada MD [address] [facility] [place] [address] PCP - General 01/15/06 Leila Lawton, division operations managerScrap Charger 02/07/22 Supervisor Ship Maintenance Services Relationship Specialty Start Date End Date Willam Estrada MD [address] [facility] [place] [address] PCP - General 01/15/06 Leila Lawton, division operations managerScrap Charger 02/07/22 Supervisor Ship Maintenance Services Relationship Specialty Start Date End Date Willam Estrada MD [address] [facility] [place] [address] PCP - General 01/15/06 Leila Lawton, division operations managerScrap Charger 02/07/22 Supervisor Ship Maintenance Services Relationship Specialty Start Date End Date Willam Estrada MD [address] [facility] [place] [address] PCP - General 01/15/06 Rola Browne, RN [address] [place] [address] Scrap Charger 02/07/22 Supervisor Ship Maintenance Services Relationship Specialty Start Date End Date Willam Estrada MD [address] [facility] [place] [address] PCP - General 01/15/06 Rola Browne, RN [address] [place] [address] Scrap Charger 02/07/22 Supervisor Ship Maintenance Services Relationship Specialty Start Date End Date Willam Estarda MD [address] [facility] [place] [address] PCP - General 01/15/06 Rola Browne, RN [address] [place] [address] Scrap Charger 02/07/22 Supervisor Ship Maintenance Services Relationship Specialty Start Date End Date Willam Estrada MD [address] [facility] [place] [address] PCP - General 01/15/06 Rola Browne, RN [address] [place] [address] Scrap Charger 02/07/22 Supervisor Ship Maintenance Services Relationship Specialty Start Date End Date Willam Estrada MD [address] [facility] [place] [address] PCP - General 01/15/06 Rola Browne, RN [address] [place] [address] Scrap Charger 07/08/22 Supervisor Ship Maintenance Services Relationship Specialty Start Date End Date Willam Estrada MD [address] [facility] [place] [address] PCP - General 01/15/06 Rola Browne, RN [address] [place] [address] Scrap Charger 07/08/22 Supervisor Ship Maintenance Services Relationship Specialty Start Date End Date Willam Estrada MD [address] [facility] [place] [address] PCP - General 01/15/06 Rola Browne, RN [address] [place] [address] Scrap Charger 07/08/22 Supervisor Ship Maintenance Services Relationship Specialty Start Date End Date Willam Estrada MD [facility] [place] [address] PCP - General 01/15/06 Rola Browne, RN [address] [place] [address] Scrap Charger 07/08/22 Supervisor Ship Maintenance Services Relationship Specialty Start Date End Date Willam Estrada MD [facility] [place] [address] PCP - General 01/15/06 Rola Browne, RN [address] [place] [address] Scrap Charger 07/08/22 Supervisor Ship Maintenance Services Relationship Specialty Start Date End Date Willam Estrada MD [address] [facility] [place] [address] PCP - General 01/15/06 Rola Browne, RN [address] [place] [address] Scrap Charger 07/08/22 Supervisor Ship Maintenance Services Relationship Specialty Start Date End Date Willam Estrada MD [address] [facility] [place] [address] PCP - General 01/15/06 Rola Browne, RN [address] [place] [address] Scrap Charger 07/08/22 Supervisor Ship Maintenance Services Relationship Specialty Start Date End Date Willam Estrada MD [address] [place] [address] PCP - General 01/15/06 Rola Browne, RN [address] [place] [address] Scrap Charger 07/08/22 Team Status: Active Member Role Status Dates Dr. Willam Estrada MD Family Provider Active Dr. Willam Estrada MD Primary Care Provider Active Team Status: Inactive Member Role Status Dates Dr. Willam Estrada MD Primary Care Provider Active Dr. Jono Castro MD Attending Provider, Emergency Provider Active Team Status: Inactive Member Role Status Dates Dr. Willam Estrada MD Primary Care Provider Active Ed Physician Provider Attending Provider, Emergency Pr ovider Active Team Status: Inactive Member Role Status Dates Dr. Willam Estrada MD Primary Care Provider Active Dr. Mona Corrigan MD Attending Provider Active Supervisor Ship Maintenance Services Relationship Specialty Start Date End Date Willam Estrada MD [address] [place] [address] PCP - General 01/15/06 Rola Browne RN [address] [place] [address] Scrap Charger 07/08/22 Supervisor Ship [employer] Relationship Specialty Start Date End Date Willam Estrada MD [address] [facility] [place] [address] PCP - General 01/15/06 Rola Browne RN [address] [place] [address] Scrap Charger 07/08/22 Supervisor Ship Maintenance [employer] Relationship Specialty Start Date End Date Willam Estrada MD [address] [facility] [place] [address] PCP - General 01/15/06 Rola Browne, RN [address] [place] [address] Scrap Charger 07/08/22 Supervisor Ship Maintenance [employer] Relationship Specialty Start Date End Date Willam Estrada MD [address] [facility] [place] [address] PCP - General 01/15/06 Rola Browne, RN [address] [place] [address] Scrap Charger 07/08/22 Team Status: Inactive Member Role Status Dates Dr. Willam Estrada MD Primary Care Provider Active Booker Barrett MD Emergency Provider Active Supervisor Ship Maintenance Services Relationship Specialty Start Date End Date Willam Estrada MD [address] [facility] [place] [address] PCP - General 01/15/06 Rola Browne RN [address] [place] [address] Scrap Charger 07/08/22 Supervisor Ship Maintenance [employer] Relationship Specialty Start Date End Date Willam Estrada MD [address] [facility] [place] [address] PCP - General 01/15/06 Rola Browne RN [address] [place] [address] Scrap Charger 07/08/22 Team Status: Inactive Member Role Status Dates Dr. Willam Estrada MD Primary Care Provider, Referr ing Provider Active Carrie Sheikh BRIMMING MACHINE OPERATOR, BRIMMING MACHINE OPERATOR-C Attending Provider Active Team Status: Inactive Member Role Status Dates Dr. Willam Estrada MD Primary Care Provider Active Booker Barrett MD Attending Provider, Emergency Provid er Active Team Status: Inactive Member Role Status Dates Dr. Willam Estrada MD Primary Care Provider Active Carrie Sheikh BRIMMING MACHINE OPERATOR, BRIMMING MACHINE OPERATOR-C Attending Provider Active Team Status: Active Member Role Status Dates Dr. Willam Estrada MD Primary Care Provider Active Carrie Sheikh BRIMMING MACHINE OPERATOR, BRIMMING MACHINE OPERATOR-C Attending Provider Active Supervisor Ship Maintenance Services Relationship Specialty Start Date End Date Willam Estrada MD [address] [facility] [place] [address] PCP - General 01/15/06 Rola Browne, RN [address] [place] [address] Scrap Charger 07/08/22 Team Status: Inactive Member Role Status Dates Dr. Willam Estrada MD Primary Care Provider Active Carrie Sheikh BRIMMING MACHINE OPERATOR, BRIMMING MACHINE OPERATOR-C Attending Provider, Referrin g Provider Active Team Status: Inactive Member Role Status Dates Dr. Willam Estrada MD Primary Care Provider, Referr ing Provider Active Dr. Uriel Caceres DO Attending Provider Active Team Status: Inactive Member Role Status Dates Dr. Willam Estrada MD Primary Care Provider Active Dr. Uriel Caceres DO Attending Provider, Referring Provider Active Supervisor Ship Maintenance Services Relationship Specialty Start Date End Date Willam Estrada MD [address] [facility] [place] [address] PCP - General 01/15/06 Rola Browne RN [address] [place] [address] Scrap Charger 07/08/22 Supervisor Ship Maintenance [employer] Relationship Specialty Start Date End Date Willam Estrada MD [address] [facility] [place] [address] PCP - General 01/15/06 Rola Browne RN [address] [place] [address] Scrap Charger 07/08/22 Supervisor Ship Maintenance [employer] Relationship Specialty Start Date End Date Willam Estrada MD [address] [place] [address] PCP - General 01/15/06 Rola Browne, RN [address] [place] [address] Scrap Charger 07/08/22 Supervisor Ship Maintenance Services Relationship Specialty Start Date End Date Willam Estrada MD [address] [facility] [place] [address] PCP - General 01/15/06 Rola Browne, RN [address] [place] [address] Scrap Charger 07/08/22 Team Status: Inactive Member Role Status Dates Dr. Willam Estrada MD Primary Care Provider Active Dr. Diogo Garza DO Emergency Provider Active Supervisor Ship Maintenance Services Relationship Specialty Start Date End Date Willam Estrada MD [address] [facility] [place] [address] PCP - General 01/15/06 Rola Browne, RN [address] [place] [address] Scrap Charger 07/08/22 Supervisor Ship Maintenance Services Relationship Specialty Start Date End Date Willam Estrada MD [address] [facility] [place] [address] PCP - General 01/15/06 Rola Browne RN [address] [place] [address] Scrap Charger 07/08/22 Supervisor Ship Maintenance Services Relationship Specialty Start Date End Date Willam Estrada MD [address] [facility] [place] [address] PCP - General 01/15/06 Rola Browne, RN [address] [place] [address] Scrap Charger 07/08/22 Team Status: Inactive Member Role Status Dates Dr. Willam Estrada MD Primary Care Provider Active Dr. Rosendo Morocho , DO Attending Provider, Emergency P rovider Active Team Status: Inactive Member Role Status Dates Dr. Willam Estrada MD Primary Care Provider Active Alpa Morales Attending Provider, Referring Provide r Active Team Status: Inactive Member Role Status Dates Dr. Willam Estrada MD Primary Care Provider Active Dr. Diogo Garza , Attending Provider, Emergency Pr ovider Active Team Status: Active Member Role Status Dates Dr. Willam Estrada MD Primary Care Provider Active Dr. Uriel Caceres , Attending Provider, Referring Provider Active Team Status: Inactive Member Role Status Dates Dr. Willam Estrada MD Primary Care Provider Active Dr. Corey Rubi MD Emergency Provider Active Supervisor Ship Maintenance [employer] Relationship Specialty Start Date End Date Willam Estrada MD [address] [facility] [place] [address] PCP - General 01/15/06 Rola Browne RN [address] [place] [address] Scrap Charger 07/08/22 Team Status: Active Member Role Status Dates Dr. Willam Estrada MD Primary Care Provider, Referr ing Provider Active Dr. Uriel Caceres , Attending Provider, Other Prov ider Active Supervisor Ship Maintenance Services Relationship Specialty Start Date End Date Willam Estrada MD [address] [facility] [place] [address] PCP - General 01/15/06 Rola Browne RN [address] [place] [address] Scrap Charger 07/08/22 Supervisor Ship Maintenance Services Relationship Specialty Start Date End Date Willam Estrada MD [address] [facility] [place] [address] PCP - General 01/15/06 Rola Browne RN [address] [place] [address] Scrap Charger 07/08/22 Supervisor Ship Maintenance Services Relationship Specialty Start Date End Date Willam Estrada MD [address] [facility] [place] [address] PCP - General 01/15/06 Rola Browne, RN [address] [place] [address] Scrap Charger 07/08/22 Supervisor Ship Maintenance Services Relationship Specialty Start Date End Date Willam Estrada MD [address] [facility] [place] [address] PCP - General 01/15/06 Rola Browne, RN [address] [place] [address] Scrap Charger 07/08/22 Supervisor Ship Maintenance Services Relationship Specialty Start Date End Date Willam Estrada MD [address] [facility] [place] [address] PCP - General 01/15/06 Rola Browne, RN [address] [place] [address] Scrap Charger 07/08/22 Team Status: Inactive Member Role Status Dates Dr. Willam Estrada MD Primary Care Provider Active Dr. Jono Castro MD Emergency Provider Active Team Status: Inactive Member Role Status Dates Dr. Willam Estrada MD Primary Care Provider Active Dr. Corey Rubi MD Attending Provider, Emergency Provider Active Supervisor Ship Maintenance [employer] Relationship Specialty Start Date End Date Willam Estrada MD [address] [facility] [place] [address] PCP - General 01/15/06 Rola Browne, RN [address] [place] [address] Scrap Charger 07/08/22 Supervisor Ship Maintenance Services Relationship Specialty Start Date End Date Willam Estrada MD [address] [place] [address] PCP - General 01/15/06 Rola Browne RN [address] [place] [address] Scrap Charger 07/08/22 Mona Corrigan MD [address] [facility] [place] [address] Pulmonary and Critical Care Medicine 11/11/23 Supervisor Ship Maintenance Services Relationship Specialty Start Date End Date Willam Estrada MD [address] [facility] [place] [address] PCP - General 01/15/06 Rola Browne RN [address] [place] [address] Scrap Charger 07/08/22 Mona Corrigan MD [address] [place] [facility] [address] Pulmonary and Critical Care Medicine 11/11/23 Supervisor Ship Maintenance Services Relationship Specialty Start Date End Date Willam Estrada MD [address] [facility] [place] [address] PCP - General 01/15/06 Rola Browne RN [address] [place] [address] Scrap Charger 07/08/22 Mona Corrigan MD [address] [place] [place] [address] Pulmonary and Critical Care Medicine 11/11/23 Supervisor Ship Maintenance Services Relationship Specialty Start Date End Date Willam Estrada MD [address] [facility] [place] [address] PCP - General 01/15/06 Rola Browne RN [address] [facility] [place] [address] Scrap Charger 07/08/22 Mona Corrigan MD [address] [facility] [place] [place] [address] Pulmonary and Critical Care Medicine 11/11/23 Supervisor Ship Maintenance Services Relationship Specialty Start Date End Date Willam Estrada MD [address] [facility] [place] [address] PCP - General 01/15/06 Rola Browne RN [address] [place] [address] Scrap Charger 07/08/22 Mona Corrigan MD [address] [place] [address] Pulmonary and Critical Care Medicine 11/11/23 Supervisor Ship Maintenance Services Relationship Specialty Start Date End Date Willam Estrada MD [address] [facility] [place] [address] PCP - General 01/15/06 Rola Browne RN [address] [place] [address] Scrap Charger 07/08/22 Mona Corrigan MD [address] [facility] [place] [place] [address] Pulmonary and Critical Care Medicine 11/11/23 Shaq Rush MD [address] [place] [address] Cardiology 11/25/23 Supervisor Ship Maintenance Services Relationship Specialty Start Date End Date Willam Estrada MD [address] [facility] [place] [address] PCP - General 01/15/06 Rola Browne RN [address] [place] [address] Scrap Charger 07/08/22 Moan Corrigan MD [address] [place] [place] [address] Pulmonary and Critical Care Medicine 11/11/23 Shaq Rush MD [address] [place] [address] Cardiology 11/25/23 Supervisor Ship Maintenance Services Relationship Specialty Start Date End Date Willam Estrada MD [address] [facility] [place] [address] PCP - General 01/15/06 Rola Browne RN [address] [place] [address] Scrap Charger 07/08/22 Mona Corrigan MD [address] [place] [address] Pulmonary and Critical Care Medicine 11/11/23 Shaq Rush MD [address] [place] [address] Cardiology 11/25/23 Supervisor Ship Maintenance Services Relationship Specialty Start Date End Date Willam Estrada MD [address] [facility] [place] [address] PCP - General 01/15/06 Rola Browne RN [address] [place] [address] Scrap Charger 07/08/22 Mona Corrigan MD [address] [place] [address] Pulmonary and Critical Care Medicine 11/11/23 Shaq Rush MD [address] [facility] [address] [place] [address] Cardiology 11/25/23 Supervisor Ship Maintenance Services Relationship Specialty Start Date End Date Willam Estrada MD [address] [facility] [place] [address] PCP - General 01/15/06 Rola Browne RN [address] [place] [address] Scrap Charger 07/08/22 Mona Corrigan MD [address] [place] [address] Pulmonary and Critical Care Medicine 11/11/23 Shaq Rush MD [address] [facility] [address] [place] [address] Cardiology 11/25/23 Supervisor Ship Maintenance Services Relationship Specialty Start Date End Date Willam Estrada MD [address] [facility] [place] [address] PCP - General 01/15/06 Rola Browne RN [address] [place] [address] Scrap Charger 07/08/22 Mona Corrigan MD [address] [place] [address] Pulmonary and Critical Care Medicine 11/11/23 Shaq Rush MD [address] [place] [address] Cardiology 11/25/23 Supervisor Ship Maintenance Services Relationship Specialty Start Date End Date Willam Estrada MD [address] [facility] [place] [address] PCP - General 01/15/06 Rola Browne RN [address] [place], [place] [address]31 Scrap Charger 07/08/22 Mona Corrigan MD [address] [place] [address] Pulmonary and Critical Care Medicine 11/11/23 Shaq Rush MD [address] [place] [address] Cardiology 11/25/23 Supervisor Ship Maintenance Services Relationship Specialty Start Date End Date Willam Estrada MD [address] [facility] [place] [address] PCP - General 01/15/06 Rola Browne RN [address] [place] [address] Scrap Charger 07/08/22 Mona Corrigan MD [address] [place] [address] Pulmonary and Critical Care Medicine 11/11/23 Shaq Rush MD [address] [place] [address] Cardiology 11/25/23 Supervisor Ship Maintenance Services Relationship Specialty Start Date End Date Willam Estrada MD [address] [facility] [place] [address] PCP - General 01/15/06 Rola Browne RN [address] [place] [address] Scrap Charger 07/08/22 Mona Corrigan MD [address] [place] [address] Pulmonary and Critical Care Medicine 11/11/23 Shaq Rush MD [address] [place] [address] Cardiology 11/25/23 Supervisor Ship Maintenance Services Relationship Specialty Start Date End Date Willam Estrada MD [address] [facility] [place] [address] PCP - General 01/15/06 Rola Browne RN [address] [place] [address] Scrap Charger 07/08/22 Mona Corrigan MD [address] [place] [address] Pulmonary and Critical Care Medicine 11/11/23 Shaq Rush MD [address] [facility] [address] [place] [address] Cardiology 11/25/23 Supervisor Ship Maintenance Services Relationship Specialty Start Date End Date Willam Estrada MD [address] [facility] [place] [address] PCP - General 01/15/06 Rola Browne RN [address] [place] [address] Scrap Charger 07/08/22 Mona Corrigan MD [address] [place] [address] Pulmonary and Critical Care Medicine 11/11/23 Shaq Rush MD [address] [place] [address] Cardiology 11/25/23 Alyssa Hathaway RN [address] [place] [address] Primary Care Support Services Rep 03/25/24 Supervisor Ship Maintenance Services Relationship Specialty Start Date End Date Willam Estrada MD [address] [facility] [place] [address] PCP - General 01/15/06 Rola Browne RN [address] [place] [address] Scrap Charger 07/08/22 Mona Corrigan MD [address] [place] [address] Pulmonary and Critical Care Medicine 11/11/23 Shaq Rush MD [address] [place] [address] Cardiology 11/25/23 Alyssa Hathaway RN [address] [place] [address] Primary Care Support Services Rep 03/25/24 Supervisor Ship Maintenance Services Relationship Specialty Start Date End Date Willam Estrada MD [address] [facility] [place] [address] PCP - General 01/15/06 Rola Browne RN [address] [place] [address] Scrap Charger 07/08/22 Mona Corrigan MD [address] [place] [address] Pulmonary and Critical Care Medicine 11/11/23 Shaq Rush MD [address] [facility] [address] [place] [address] Cardiology 11/25/23 Alyssa Hathaway, HOWARD [address] [place] [address] Primary Care Support Services Rep 03/25/24 Supervisor Ship Maintenance Services Relationship Specialty Start Date End Date Willam Estrada MD [address] [facility] [place] [address] PCP - General 01/15/06 Rola Browne RN [address] [place] [address] Scrap Charger 07/08/22 Mona Corrigan MD [address] [place] [address] Pulmonary and Critical Care Medicine 11/11/23 Shaq Rush MD [address] [facility] [address] [place] [address] Cardiology 11/25/23 Alyssa Hathaway RN [address] [place] [address] Primary Care Support Services Rep 03/25/24 Supervisor Ship Maintenance Services Relationship Specialty Start Date End Date Willam Estrada MD [address] [facility] [place] [address] PCP - General 01/15/06 Rola Browne RN [address] [place] [address] Scrap Charger 07/08/22 Mona Corrigan MD [address] [place] [address] Pulmonary and Critical Care Medicine 11/11/23 Shaq Rush MD [address] [facility] [address] [place] [address] Cardiology 11/25/23 Alyssa Hathaway RN [address] [place] [address] Primary Care Support Services Rep 03/25/24 Supervisor Ship Maintenance Services Relationship Specialty Start Date End Date Willam Estrada MD [address] [facility] [place] [address] PCP - General 01/15/06 Rola Browne RN [address] [place] [address] Scrap Charger 07/08/22 Mona Corrigan MD [address] [place] [address] Pulmonary and Critical Care Medicine 11/11/23 Shaq Rush MD [address] [facility] [address] [place] [address] Cardiology 11/25/23 Alyssa Hathaway RN [address] [place] [address] Primary Care Support Services Rep 03/25/24 Supervisor Ship Maintenance Services Relationship Specialty Start Date End Date Willam Estrada MD [address] [facility] [place] [address] PCP - General 01/15/06 Rola Browne RN [address] [place] [address] Scrap Charger 07/08/22 Mona Corrigan MD [address] [place] [address] Pulmonary and Critical Care Medicine 11/11/23 Shaq Rush MD [address] [address] Cardiology 11/25/23 Alyssa Hathaway, HOWARD [address] [place] [address] Primary Care Support Services Rep 03/25/24 Supervisor Ship Maintenance Services Relationship Specialty Start Date End Date Willam Estrada MD [address] [place] [address] PCP - General 01/15/06 Rola Browne RN [address] [place] [address] Scrap Charger 07/08/22 Mona Corrigan MD [address] [place] [address] Pulmonary and Critical Care Medicine 11/11/23 Shaq Rush MD [address] [address] Cardiology 11/25/23 Alyssa Hathaway RN [address] [place] [address] Primary Care Support Services Rep 03/25/24 Supervisor Ship Maintenance Services Relationship Specialty Start Date End Date Willam Estrada MD [address] [place] [address] PCP - General 01/15/06 Rola Browne, HOWARD [address] [place] [address] Scrap Charger 07/08/22 Mona Corrigan MD [address] [place] [address] Pulmonary and Critical Care Medicine 11/11/23 Shaq Rush MD [address] [address] Cardiology 11/25/23 Supervisor Ship Maintenance Services Relationship Specialty Start Date End Date Willam Estrada MD [address] [place] [address] PCP - General 01/15/06 Mona Corrigan MD [address] [place] [address] Pulmonary and Critical Care Medicine 11/11/23 Shaq Rush MD [address] [address] Cardiology 11/25/23 [employer] RN Scrap Charger 05/08/24 Supervisor Ship Maintenance Services Relationship Specialty Start Date End Date Willam Estrada MD [address] [place] [address] PCP - General 01/15/06 Rola Browne RN [address] [place] [address] Scrap Charger 07/08/22 05/07/24 Mona Corrigan MD [address] [place] [address] Pulmonary and Critical Care Medicine 11/11/23 Shaq Rush MD [address] [facility] [address] [place] [address] Cardiology 11/25/23 Alyssa Hathaway, HOWARD [address] [place] [address] Primary Care Support Services Rep 03/25/24 04/23/24 Supervisor Ship Maintenance Services Relationship Specialty Start Date End Date Willam Estrada MD [address] [place] [address] PCP - General 01/15/06 Rola Browne RN [address] [place] [address] Scrap Charger 07/08/22 05/07/24 Mona Corrigan MD [address] [place] [address] Pulmonary and Critical Care Medicine 11/11/23 Shaq Rush MD [address] [facility] [address] [place] [address] Cardiology 11/25/23 Supervisor Ship Maintenance Services Relationship Specialty Start Date End Date Willam Estrada MD [address] [facility] [place] [address] PCP - General 01/15/06 Rola Browne RN [address] [place] [address] Scrap Charger 07/08/22 05/07/24 Mona Corrigan MD [address] [facility] [place] [address] Pulmonary and Critical Care Medicine 11/11/23 Shaq Rush MD [address] [facility] [address] [place] [address] Cardiology 11/25/23 Supervisor Ship Maintenance Services Relationship Specialty Start Date End Date Willam Estrada MD [address] [facility] [place] [address] PCP - General 01/15/06 Rola Browne RN [address] [place], [place] [address]31 Scrap Charger 07/08/22 05/07/24 Mona Corrigan MD [address] [place] [address] Pulmonary and Critical Care Medicine 11/11/23 Shaq Rush MD [address] [place] [address] Cardiology 11/25/23 Alyssa Hathaway, HOWARD [address] [place] [address] Primary Care Support Services Rep 03/25/24 04/23/24 Supervisor Ship Maintenance Services Relationship Specialty Start Date End Date Willam Estrada MD [address] [facility] [place] [address] PCP - General 01/15/06 Mona Corrigan MD [address] [place] [address] Pulmonary and Critical Care Medicine 11/11/23 Shaq Rush MD [address] [facility] EU[address] [address] [place] [address] Cardiology 11/25/23 [employer], division operations managerScrap Charger 05/08/24 Supervisor Ship Maintenance Services Relationship Specialty Start Date End Date Willam Estrada MD [address] [facility] [place] [address] PCP - General 01/15/06 Mona Corrigan MD [address] [place] [address] Pulmonary and Critical Care Medicine 11/11/23 Shaq Rush MD [address] [place] [address] Cardiology 11/25/23 [employer], division operations managerScrap Charger 05/08/24 Supervisor Ship Maintenance Services Relationship Specialty Start Date End Date Willam Estrada MD [address] [facility] [place] [address] PCP - General 01/15/06 Rola Browne RN [address] [place] [address] Scrap Charger 07/08/2204/10 Supervisor Ship Maintenance Services Relationship Specialty Start Date End Date Willam Estrada MD [address] [facility] [place] [address] PCP - General 01/15/06 Rola Browne RN [address] [place] [address] Scrap Charger 07/08/2204/10 Supervisor Ship Maintenance Services Relationship Specialty Start Date End Date Willam Estrada MD [address] [facility] [place] [address] PCP - General 01/15/06 Rola Browne RN [address] [place] [address] Scrap Charger 07/08/2204/10 Supervisor Ship Maintenance Services Relationship Specialty Start Date End Date Willam Estrada MD [address] [facility] [place] [address] PCP - General 01/15/06 Leila Lawton, division operations managerScrap Charger 02/07/22 Supervisor Ship Maintenance Services Relationship Specialty Start Date End Date Willam Estrada MD [address] [facility] [place] [address] PCP - General 01/15/06 Mona Corrigan MD [address] [place] [address] Pulmonary and Critical Care Medicine 11/11/23 Shaq Rush MD [address] [place] [address] Cardiology 11/25/23 [employer], division operations managerScrap Charger 05/08/24 Supervisor Ship Maintenance Services Relationship Specialty Start Date End Date Willam Estrada MD [address] [facility] [place] [address] PCP - General 01/15/06 Leila Lawton, division operations managerScrap Charger 02/07/22 Supervisor Ship Maintenance Services Relationship Specialty Start Date End Date Willam Estrada MD [address] [place] [address] PCP - General 01/15/06 Supervisor Ship Maintenance Services Relationship Specialty Start Date End Date Willam Estrada MD [address] [place] [address] PCP - General 01/15/06 Supervisor Ship Maintenance Services Relationship Specialty Start Date End Date Willam Estrada MD [address] [place] [address] PCP - General 01/15/06 Mona Corrigan MD [address] [place] [address] Pulmonary and Critical Care Medicine 11/11/23 Shaq Rush MD [address] [address] Cardiology 11/25/23 [employer], division operations managerScrap Charger 05/08/24 Supervisor Ship Maintenance Services Relationship Specialty Start Date End Date Willam Estrada MD [address] [place] [address] PCP - General 01/15/06 Supervisor Ship Maintenance Services Relationship Specialty Start Date End Date Willam Estrada MD [address] [place] [address] PCP - General 01/15/06 Mona Corrigan MD [address] [place] [address] Pulmonary and Critical Care Medicine 11/11/23 Shaq Rush MD [address] [address] Cardiology 11/25/23 [employer], division operations managerScrap Charger 05/08/24 Supervisor Ship Maintenance Services Relationship Specialty Start Date End Date Willam Estrada MD [address] [facility] [place] [address] PCP - General 01/15/06 Mona Corrigan MD [address] [facility] [place] [address] Pulmonary and Critical Care Medicine 11/11/23 Shaq Rush MD [address] [place] [address] Cardiology 11/25/23 [employer] RN Scrap Charger 05/08/24 Supervisor Ship Maintenance Services Relationship Specialty Start Date End Date Willam Estrada MD [address] [facility] [place] [address] PCP - General 01/15/06 Mona Corrigan MD [address] [place] [address] Pulmonary and Critical Care Medicine 11/11/23 Shaq Rush MD [address] [place] [address] Cardiology 11/25/23 [employer], division operations managerScrap Charger 05/08/24 Supervisor Ship Maintenance Services Relationship Specialty Start Date End Date Willam Estrada MD [address] [facility] [place] [address] PCP - General 01/15/06 Mona Corrigan MD [address] [place] [address] Pulmonary and Critical Care Medicine 11/11/23 Shaq Rush MD [address] [place] [address] Cardiology 11/25/23 [employer], division operations managerScrap Charger 05/08/24 Supervisor Ship Maintenance Services Relationship Specialty Start Date End Date Willam Estrada MD [address] [facility] [place] [address] PCP - General 01/15/06 Mona Corrigan MD [address] [place] [address] Pulmonary and Critical Care Medicine 11/11/23 Shaq Rush MD [address] [place] [address] Cardiology 11/25/23 [employer], division operations managerScrap Charger 05/08/24 Kati Grant LSW EUCLID Lead Security Officer 07/22/24 Supervisor Ship Maintenance Services Relationship Specialty Start Date End Date Willam Estrada MD [address] [facility] [place] [address] PCP - General 01/15/06 Mona Corrigan MD [address] [place] [address] Pulmonary and Critical Care Medicine 11/11/23 Shaq Rush MD [address] [place] [address] Cardiology 11/25/23 [employer], division operations managerScrap Charger 05/08/24 Kati Grant LSW EUCLID Lead Security Officer 07/22/24 Supervisor Ship Maintenance Services Relationship Specialty Start Date End Date Willam Estrada MD [address] [facility] [place] [address] PCP - General 01/15/06 Mona Corrigan MD [address] [place] [address] Pulmonary and Critical Care Medicine 11/11/23 Shaq Rush MD [address] [place] [address] Cardiology 11/25/23 [employer] RN Scrap Charger 05/08/24 Kati Grant, BOLIVAR GARZA Lead Security Officer 07/22/24 Supervisor Ship Maintenance Services Relationship Specialty Start Date End Date Willam Estrada MD [address] [facility] [place] [address] PCP - General 01/15/06 Mona Corrigan MD [address] [place] [address] Pulmonary and Critical Care Medicine 11/11/23 Shaq Rush MD [address] [place] [address] Cardiology 11/25/23 [employer] RN Scrap Charger 05/08/24 Kati Grant LSW EUCLID Lead Security Officer 07/22/24 Supervisor Ship Maintenance Services Relationship Specialty Start Date End Date Willam Estrada MD [address] [facility] [place] [address] PCP - General 01/15/06 Mona Corrigan MD [address] [place] [address] Pulmonary and Critical Care Medicine 11/11/23 Shaq Rush MD [address] [place] [address] Cardiology 11/25/23 [employer], division operations managerScrap Charger 05/08/24 Kati Grant LSW EUCLIKit Lead Security Officer 07/22/24 Supervisor Ship Maintenance Services Relationship Specialty Start Date End Date Willam Estrada MD [address] [facility] [place] [address] PCP - General 01/15/06 Mona Corrigan MD [address] [place] [address] Pulmonary and Critical Care Medicine 11/11/23 Shaq Rush MD [address] [place] [address] Cardiology 11/25/23 [employer] RN Scrap Charger 05/08/24 Kati Grant LSW EUCLID Lead Security Officer 07/22/24 Supervisor Ship Maintenance Services Relationship Specialty Start Date End Date Willam Estrada MD [address] [facility] [place] [address] PCP - General 01/15/06 Mona Corrigan MD [address] [place] [address] Pulmonary and Critical Care Medicine 11/11/23 Shaq Rush MD [address] [address] Cardiology 11/25/23 [employer], division operations managerScrap Charger 05/08/24 Kati Grant, ANALYTICS LEADER EUCLID Lead Security Officer 07/22/24 Alyssa Hathaway, RN [address] [place] [address] Primary Care Support Services Rep 08/07/24 Supervisor Ship Maintenance Services Relationship Specialty Start Date End Date Willam Estrada MD [address] [place] [address] PCP - General 01/15/06 Mona Corrigan MD [address] [place] [address] Pulmonary and Critical Care Medicine 11/11/23 Shaq Rush MD [address] [address] Cardiology 11/25/23 [employer], division operations managerScrap Charger 05/08/24 Kati Grant LSW EUCLID Lead Security Officer 07/22/24 Alyssa Hathaway, HOWARD [address] [place] [address] Primary Care Support Services Rep 08/07/24 Supervisor Ship Maintenance Services Relationship Specialty Start Date End Date Willam Estrada MD [address] [place] [address] PCP - General 01/15/06 Mona Corrigan MD [address] [facility] [place] [place] [address] Pulmonary and Critical Care Medicine 11/11/23 Shaq Rush MD [address] [address] Cardiology 11/25/23 [employer], division operations managerScrap Charger 05/08/24 Kati Grant, ANALYTICS LEADER EUCLID Lead Security Officer 07/22/24 Alyssa Hathaway, RN [address] [place] [address] Primary Care Support Services Rep 08/07/24 Supervisor Ship Maintenance Services Relationship Specialty Start Date End Date Willam Estrada MD [address] [place] [address] PCP - General 01/15/06 Mona Corrigan MD [address] [facility] [place] [address] Pulmonary and Critical Care Medicine 11/11/23 Shaq Rush MD [address] [address] Cardiology 11/25/23 [employer], division operations managerScrap Charger 05/08/24 Kati Grant, BOLIVAR EUCANDREE Lead Security Officer 07/22/24 Alyssa Hathaway, HOWARD [address] [place], [place] [id number] Primary Care Support Services Rep 08/07/24 Supervisor Ship Maintenance Services Relationship Specialty Start Date End Date Willam Estrada MD [address] [place] [address] PCP - General 01/15/06 Mona Corrigan MD [address] [facility] [place] [address] Pulmonary and Critical Care Medicine 11/11/23 Shaq Rush MD [address] [address] Cardiology 11/25/23 [employer], division operations managerScrap Charger 05/08/24 Kati Grant, BOLIVAR EUCLID Lead Security Officer 07/22/24 Alyssa Hathaway, HOWARD [address] [place], [place] [address] Primary Care Support Services Rep 08/07/24 Supervisor Ship Maintenance Services Relationship Specialty Start Date End Date Willam Estrada MD [address] [place] [address] PCP - General 01/15/06 Mona Corrigan MD [address] [place] [address] Pulmonary and Critical Care Medicine 11/11/23 Shaq Rush MD [address] [facility] [address] [address] Cardiology 11/25/23 [employer], division operations managerScrap Charger 05/08/24 Kati Grant, BOLIVAR EUCANDREE Lead Security Officer 07/22/24 Alyssa Hathaway, HOWARD [address] [place], [place] [id number] Primary Care Support Services Rep 08/07/24 Supervisor Ship Maintenance Services Relationship Specialty Start Date End Date Willam Estrada MD [address] [place] [address] PCP - General 01/15/06 Mona Corrigan MD [address] [facility] [place] [address] Pulmonary and Critical Care Medicine 11/11/23 Shaq Rush MD [address] [address] Cardiology 11/25/23 [employer], division operations managerScrap Charger 05/08/24 Kati Grant, BOLIVAR EUCANDREE Lead Security Officer 07/22/24 Alyssa Hathaway, HOWARD [address] [place] [address] Primary Care Support Services Rep 08/07/24 Supervisor Ship Maintenance Services Relationship Specialty Start Date End Date Willam Estrada MD [address] [place] [address] PCP - General 01/15/06 Mona Corrigan MD [address] [place] [address] Pulmonary and Critical Care Medicine 11/11/23 Shaq Rush MD [address] [address] Cardiology 11/25/23 [employer], division operations managerScrap Charger 05/08/24 Kati Grant, BOLIVAR EUCANDREE Lead Security Officer 07/22/24 Alyssa Hathaway, HOWARD [address] [place] [address] Primary Care Support Services Rep 08/07/24 Leilani Ramirez APRN.CNS [address] [place] [address] Ekg Technician Internal Medicine 08/17/24 Allegra Berumen SECTION LEADER SCREEN PRINTING.PARTS DEPARTMENT MANAGER [address] [place] [address] [facility] Internal Medicine 08/17/24 Supervisor Ship Maintenance Services Relationship Specialty Start Date End Date Willam Estrada MD [address] [place] [address] PCP - General 01/15/06 Mona Corrigan MD [address] [place] [address] Pulmonary and Critical Care Medicine 11/11/23 [place] [address] [place] [address] Cardiology 11/25/23 [employer], division operations managerScrap Charger 05/08/24 Alyssa Hathaway, HOWARD [address] [place], [place] [id number] Primary Care Support Services Rep 08/07/24 Leilani Ramirez APRN.PRETZEL PACKER [address] [place] [address] [facility] Internal Medicine 08/17/24 Allegra Berumen SECTION LEADER SCREEN PRINTING.PARTS DEPARTMENT MANAGER [address] [place] [address] [facility] Internal Medicine 08/17/24 Supervisor Ship Maintenance Services Relationship Specialty Start Date End Date Willam Estrada MD [address] [place] [address] PCP - General 01/15/06 Mona Corrigan MD [address] [place] [address] Pulmonary and Critical Care Medicine 11/11/23 Shaq Rush MD [address] [place] [address] Cardiology 11/25/23 Leilani Ramirez, SECTION LEADER SCREEN PRINTING.PRETZEL PACKER [address] [facility] [place] [address] Ekg Technician Internal Medicine 08/17/24 Allegra Berumen APRN.PARTS DEPARTMENT MANAGER [address] [place] [address] [facility] Internal Medicine 08/17/24 Supervisor Ship Maintenance Services Relationship Specialty Start Date End Date Willam Estrada MD [address] [facility] [place] [address] PCP - General 01/15/06 Mona Corrigan MD [address] [place] [address] Pulmonary and Critical Care Medicine 11/11/23 Shaq Rush MD [address] [facility] [address] [place] [address] Cardiology 11/25/23 Leilani Ramirez, SECTION LEADER SCREEN PRINTING.PRETZEL PACKER [address] [facility] [place] [address] [facility] Internal Medicine 08/17/24 Allegra Berumen APRN.PARTS DEPARTMENT MANAGER [address] [place] [address] Ekg Technician Internal Medicine 08/17/24 Supervisor Ship Maintenance Services Relationship Specialty Start Date End Date Willam Estrada MD [address] [facility] [place] [address] PCP - General 01/15/06 Mona Corrigan MD [address] [place] [address] Pulmonary and Critical Care Medicine 11/11/23 Shaq Rush MD [address] [place] [address] Cardiology 11/25/23 Leilani Ramirez, SECTION LEADER SCREEN PRINTING.PRETZEL PACKER [address] [facility] [place] [address] Ekg Technician Internal Medicine 08/17/24 Allegra Berumen SECTION LEADER SCREEN PRINTING.PARTS DEPARTMENT MANAGER [address] [facility] [place] [address] Ekg Technician Internal Medicine 08/17/24 Supervisor Ship Maintenance Services Relationship Specialty Start Date End Date Willam Estrada MD [address] [facility] [place] [address] PCP - General 01/15/06 Mona Corrigan MD [address] [place] [address] Pulmonary and Critical Care Medicine 11/11/23 Shaq Rush MD [address] [facility] [address] [place] [address] Cardiology 11/25/23 Leilani Ramirez, SECTION LEADER SCREEN PRINTING.PRETZEL PACKER [address] [facility] [place] [address] Ekg Technician Internal Medicine 08/17/24 Allegra Berumen APRN.PARTS DEPARTMENT MANAGER [address] [facility] [place] [address] Ekg Technician Internal Medicine 08/17/24 Supervisor Ship Maintenance Services Relationship Specialty Start Date End Date Willam Estrada MD [address] [facility] [place] [address] PCP - General 01/15/06 Mona Corrigan MD [address] [place] [address] Pulmonary and Critical Care Medicine 11/11/23 Shaq Rush MD [address] [address] Cardiology 11/25/23 Leilani Ramirez APRN.PRETZEL PACKER [address] [facility] [place] [address] Ekg Technician Internal Medicine 08/17/24 Allegra Berumen APRN.PARTS DEPARTMENT MANAGER [address] [facility] [place] [address] Ekg Technician Internal Medicine 08/17/24 Supervisor Ship Maintenance Services Relationship Specialty Start Date End Date Willam Estrada MD [address] [place] [address] PCP - General 01/15/06 Mona Corrigan MD [address] [place] [address] Pulmonary and Critical Care Medicine 11/11/23 Shaq Rush MD [address] [facility] [address] [place] [address] Cardiology 11/25/23 Leilani Ramirez, SECTION LEADER SCREEN PRINTING.PRETZEL PACKER [address] [facility] [place] [address] Ekg Technician Internal Medicine 08/17/24 Allegra Berumen APRN.PARTS DEPARTMENT MANAGER [address] [facility] [place] [address] Ekg Technician Internal Medicine 08/17/24 Supervisor Ship Maintenance Services Relationship Specialty Start Date End Date Willam Estrada MD [address] [facility] [place] [address] PCP - General 01/15/06 Mona Corrigan MD [address] [facility] [place] [address] Pulmonary and Critical Care Medicine 11/11/23 Shaq Rush MD [address] [facility] [address] [place] [address] Cardiology 11/25/23 Leilani Ramirez, SECTION LEADER SCREEN PRINTING.PRETZEL PACKER [address] [facility] [place] [address] Ekg Technician Internal Medicine 08/17/24 Allegra Berumen APRN.PARTS DEPARTMENT MANAGER [address] [facility] [place] [address] Ekg Technician Internal Medicine 08/17/24 Supervisor Ship Maintenance Services Relationship Specialty Start Date End Date Willam Estrada MD [address] [place] [address] PCP - General 01/15/06 Mona Corrigan MD [address] [place] [address] Pulmonary and Critical Care Medicine 11/11/23 Shaq Rush MD [address] [place] [address] Cardiology 11/25/23 Leilani Ramirez APRN.PRETZEL PACKER [address] [place] [address] Ekg Technician Internal Medicine 08/17/24 Allegra Berumen APRN.PARTS DEPARTMENT MANAGER [address] [place] [address] Ekg Technician Internal Medicine 08/17/24 Supervisor Ship Maintenance Services Relationship Specialty Start Date End Date Willam Estrada MD [address] [place] [address] PCP - General 01/15/06 Mona Corrigan MD [address] [place] [address] Pulmonary and Critical Care Medicine 11/11/23 Shaq Rush MD [address] [place] [address] Cardiology 11/25/23 Leilani Ramirez APRN.PRETZEL PACKER [address] [place] [address] Ekg Technician Internal Medicine 08/17/24 Allegra Berumen APRN.PARTS DEPARTMENT MANAGER [address] [facility] [place] [address] Ekg Technician Internal Medicine 08/17/24 Supervisor Ship Maintenance Services Relationship Specialty Start Date End Date Willam Estrada MD [address] [place] [address] PCP - General 01/15/06 Mona Corrigan MD [address] [facility] [place] [address] Pulmonary and Critical Care Medicine 11/11/23 Sahq Rush MD [address] [address] Cardiology 11/25/23 Leilani Ramirez APRN.PRETZEL PACKER [address] [facility] [place] [address] Ekg Technician Internal Medicine 08/17/24 Supervisor Ship Maintenance Services Relationship Specialty Start Date End Date Willam Estrada MD [address] [facility] [place] [address] PCP - General 01/15/06 Mona Corrigan MD [address] [facility] [place] [address] Pulmonary and Critical Care Medicine 11/11/23 Shaq Rush MD [address] [place] [address] Cardiology 11/25/23 Leilani Ramirez APRN.PRETZEL PACKER [address] [facility] [place] [address] Ekg Technician Internal Medicine 08/17/24 JamaicaAllegra, SECTION LEADER SCREEN PRINTING.PARTS DEPARTMENT MANAGER [address] [facility] [place] [address] [facility] Internal Medicine 12/01/24 Team Status: Active Member Role Status Dates Dr. Willam Estrada MD Primary Care Provider Active Team Status: Inactive Member Role Status Dates Dr. Willam Estrada MD Primary Care Provider Active Start: August 02, 2024 End: August 05, 2024 Dr. Marcelo Madrigal MD Emergency Provider Active Sta rt: August 02, 2024 End: August 05, 2024 Dr. Thalia Hernandez MD Admit Provider Active Star t: August 02, 2024 End: August 05, 2024 Dr. Thalia Hernandez MD Other Provider Active Star t: August 02, 2024 End: August 05, 2024 Dr. Neal Dunaway MD Attending Provider Active Start: August 02, 2024 End: August 05, 2024 Team Status: Active Member Role Status Dates Dr. Willam Estrada MD Primary Care Provider Active Start: August 02, 2024 Dr. Marcelo Madrigal MD Emergency Provider Active Sta rt: August 02, 2024 Dr. Thalia Hernandez MD Admit Provider Active Star t: August 02, 2024 Dr. Thalia Hernandez MD Attending Provider Active Start: August 02, 2024 Dr. Thalia Hernandez MD Other Provider Active Star t: August 02, 2024 Team Status: Active Member Role Status Dates Dr. Willam Estrada MD Primary Care Provider Active Start: August 03, 2024 Dr. Marcelo Madrigal MD Emergency Provider Active Sta rt: August 03, 2024 Dr. Thalia Hernandez MD Admit Provider Active Star t: August 03, 2024 Dr. Thalia Hernandez MD Other Provider Active Star t: August 03, 2024 Dr. Neal Dunaway MD Attending Provider Active Start: August 03, 2024 Dr. Neal Dunaway MD Other Provider Active Start: August 03, 2024 Team Status: Active Member Role Status Dates Dr. Willam Estrada MD Primary Care Provider Active Start: August 04, 2024 Dr. Marcelo Madrigal MD Emergency Provider Active Sta rt: August 04, 2024 Dr. Thalia Hernandez MD Admit Provider Active Star t: August 04, 2024 Dr. Thalia Hernandez MD Other Provider Active Star t: August 04, 2024 Dr. Neal Dunaway MD Attending Provider Active Start: August 04, 2024 Dr. Neal Dunaway MD Other Provider Active Start: August 04, 2024 Team Status: Active Member Role Status Dates Dr. Willam Estrada MD Primary Care Provider Active Start: August 05, 2024 Dr. Marcelo Madrigal MD Emergency Provider Active Sta rt: August 05, 2024 Dr. Thalia Hernandez MD Admit Provider Active Star t: August 05, 2024 Dr. Thalia Hernandez MD Other Provider Active Star t: August 05, 2024 Dr. Neal Dunaway MD Attending Provider Active Start: August 05, 2024 Dr. Neal Dunaway MD Other Provider Active Start: August 05, 2024 Team Status: Inactive Member Role Status Dates Dr. Willam Estrada MD Primary Care Provider Active Start: August 05, 2024 End: August 06, 2024 Dr. Lissette Guerin DO Attending Provider Active Start: August 05, 2024 End: August 06, 2024 Dr. Lissette Guerin DO Emergency Provider Active Start: August 05, 2024 End: August 06, 2024 Team Status: Inactive Member Role Status Dates Dr. Willam Estrada MD Primary Care Provider Active Start: August 09, 2024 End: August 09, 2024 Dr. Julián Schrader DO Attending Provider Activ e Start: August 09, 2024 End: August 09, 2024 Dr. Julián Schrader DO Emergency Provider Activ e Start: August 09, 2024 End: August 09, 2024 Team Status: Inactive Member Role Status Dates Dr. Willam Estrada MD Primary Care Provider Active Start: August 10, 2024 End: August 10, 2024 KEVIN De Leon Attending Provider Active Start: August 10, 2024 End: August 10, 2024 KEVIN De Leon Referring Provider Active Start: August 10, 2024 End: August 10, 2024 Team Status: Active Member Role Status Dates Dr. Willam Estrada MD Primary Care Provider Active Start: August 10, 2024 Dr. Rosendo Gupta MD Attending Provider Active S tart: August 10, 2024 KEVIN De Leon Referring Provider Active Start: August 10, 2024 Team Status: Inactive Member Role Status Dates Dr. Willam Estrada MD Primary Care Provider Active Start: September 03, 2024 End: September 03, 2024 KEVIN Beckham Attending Provider Active Star t: September 03, 2024 End: September 03, 2024 KEVIN Beckham Referring Provider Active Star t: September 03, 2024 End: September 03, 2024 Team Status: Inactive Member Role Status Dates Dr. Willam Estrada MD Primary Care Provider Active Start: September 08, 2024 End: September 08, 2024 Dr. Willam Estrada MD Referring Provider Active Start: September 08, 2024 End: September 08, 2024 Dr. Blake Avilez MD Attending Provider Active Start: September 08, 2024 End: September 08, 2024 Team Status: Inactive Member Role Status Dates Dr. Willam Estrada MD Primary Care Provider Active Start: September 11, 2024 End: September 11, 2024 Dr. Shaq Rush MD Attending Provider Active S tart: September 11, 2024 End: September 11, 2024 Team Status: Inactive Member Role Status Dates Dr. Willam Estrada MD Primary Care Provider Active Start: October 16, 2024 End: October 16, 2024 Dr. Willam Estrada MD Referring Provider Active Start: October 16, 2024 End: October 16, 2024 Ya BROWN, PA Attending Provider Active Start: October 16, 2024 End: October 16, 2024 Team Status: Inactive Member Role Status Dates Dr. Willam Estrada MD Primary Care Provider Active Start: October 30, 2024 End: October 30, 2024 Dr. Willam Estrada MD Referring Provider Active Start: October 30, 2024 End: October 30, 2024 Dr. León Cruz MD Attending Provider Active Start: October 30, 2024 End: October 30, 2024 Team Status: Inactive Member Role Status Dates Dr. Willam Estrada MD Primary Care Provider Active Start: November 02, 2024 End: November 02, 2024 Dr. Blake Avilez MD Attending Provider Active Start: November 02, 2024 End: November 02, 2024 Dr. Blake Avilez MD Referring Provider Active Start: November 02, 2024 End: November 02, 2024 Team Status: Inactive Member Role Status Dates Dr. Willam Estrada MD Primary Care Provider Active Start: November 11, 2024 End: November 11, 2024 KEVIN SOMMER Attending Provider Active S tart: November 11, 2024 End: November 11, 2024 KEVIN SOMMER Referring Provider Active S tart: November 11, 2024 End: November 11, 2024 Team Status: Active Member Role Status Dates Dr. Willam Estrada MD Primary Care Provider Active Start: November 11, 2024 KEVIN SOMMER Referring Provider Active S tart: November 11, 2024 KEVIN SOMMER Other Provider Active Start : November 11, 2024 Dr. Aly Jeffrey MD Attending Provider Active S tart: November 11, 2024 Team Status: Inactive Member Role Status Dates Dr. Willam Estrada MD Primary Care Provider Active Start: November 16, 2024 End: November 16, 2024 Dr. Willam Estrada MD Referring Provider Active Start: November 16, 2024 End: November 16, 2024 KEVIN Beckham Attending Provider Active Star t: November 16, 2024 End: November 16, 2024 [employer]visor [employer] Relationship Specialty Start Date End Date iWllam Estrada MD [address] [place] [address] PCP - General 01/15/06 Mona Corrigan MD [address] [place] [address] Pulmonary and Critical Care Medicine 11/11/23 Shaq Rush MD [address] [place] [address] Cardiology 11/25/23 Leilani Ramirez, CHRIS.PRETZEL PACKER [address] [facility] [place] [address] Ekg Technician Internal Medicine 08/17/24 Allegra Berumen APRN.PARTS DEPARTMENT MANAGER [address] [place], [place] [id number] Ekg Technician Internal Medicine 12/01/24 Team Status: Inactive Member Role Status Dates Dr. Willam Estrada MD Primary Care Provider Active Start: December 18, 2024 End: December 18, 2024 KEVIN Beckham Attending Provider Active Star t: December 18, 2024 End: December 18, 2024 KEVIN Beckham Referring Provider Active Star t: December 18, 2024 End: December 18, 2024 Supervisor [employer] Relationship Specialty Start Date End Date Willam Estrada MD [address] [facility] [place] [address] PCP - General 01/15/06 Mona Corrigan MD [address] [place] [address] Pulmonary and Critical Care Medicine 11/11/23 Shaq Rush MD [address] [place] [address] Cardiology 11/25/23 Leilani Ramirez, CHRIS.PRETZEL PACKER [address] [place] [address] Ekg Technician Internal Medicine 08/17/24 Allegra Berumen APRN.PARTS DEPARTMENT MANAGER [address] [place], [place] [address] [facility] Internal Medicine 08/17/24 11/27/24 Allegra Berumen APRN.PARTS DEPARTMENT MANAGER [address] [place], [place] [id number] [facility] Internal Medicine 12/01/24 Team Status: Inactive Member Role Status Dates Dr. Willam Estrada MD Primary Care Provider Active Start: December 24, 2024 End: December 24, 2024 Dr. Willam Estrada MD Referring Provider Active Start: December 24, 2024 End: December 24, 2024 KEVIN Beckham Attending Provider Active Star t: December 24, 2024 End: December 24, 2024 Team Status: Inactive Member Role Status Dates Dr. Willam Estrada MD Primary Care Provider Active Start: February 04, 2025 End: February 04, 2025 Dr. Willam Estrada MD Referring Provider Active Start: February 04, 2025 End: February 04, 2025 Dr. Blake Avilez MD Attending Provider Active Start: February 04, 2025 End: February 04, 2025 Supervisor [employer] Relationship Specialty Start Date End Date Willam Estrada MD [address] [place], [place] [id number] PCP - General 01/15/06 Mona Corrigan MD [address] [place], [place] [id number] Pulmonary and Critical Care Medicine 11/11/23 Shaq Rush MD [address] [address] Cardiology 11/25/23 Allegra Berumen SECTION LEADER SCREEN PRINTING.PARTS DEPARTMENT MANAGER [address] [place] [address] Ekg Technician Internal Medicine 12/01/24 Leilani Ramirez, SECTION LEADER SCREEN PRINTING.PRETZEL PACKER [address] [place] [address] Ekg Technician Internal Medicine 01/27/25 Supervisor [employer] Relationship Specialty Start Date End Date Willam Estrada MD [address] [place] [address] PCP - General 01/15/06 Mona Corrigan MD [address] [place] [address] Pulmonary and Critical Care Medicine 11/11/23 Shaq Rush MD [address] [address] Cardiology 11/25/23 Allegra Berumen APRN.PARTS DEPARTMENT MANAGER [address] [place] [address] Ekg Technician Internal Medicine 12/01/24 Leilani Ramirez, SECTION LEADER SCREEN PRINTING.PRETZEL PACKER [address] [facility] [place] [address] [facility] Internal Medicine 01/27/25 Supervisor [employer] Relationship Specialty Start Date End Date Willam Estrada MD [address] [place] [address] PCP - General 01/15/06 Mona Corrigan MD [address] [place] [address] Pulmonary and Critical Care Medicine 11/11/23 Shaq Rush MD [address] [place] [address] Cardiology 11/25/23 Allegra Berumen APRN.PARTS DEPARTMENT MANAGER [address] [place] [address] Ekg Technician Internal Medicine 12/01/24 Leilani Ramirez APRN.PRETZEL PACKER [address] [place] [address] Ekg Technician Internal Medicine 01/27/25 Supervisor [employer] Relationship Specialty Start Date End Date Willam Estrada MD [address] [place] [address] PCP - General 01/15/06 Mona Corrigan MD [address] [place] [address] Pulmonary and Critical Care Medicine 11/11/23 Shaq Rush MD [address] [place] [address] Cardiology 11/25/23 Allegra Berumen APRN.PARTS DEPARTMENT MANAGER [address] [place] [address] Ekg Technician Internal Medicine 12/01/24 Leilani Ramirez APRN.PRETZEL PACKER [address] [place] [address] Ekg Technician Internal Medicine 01/27/25 Supervisor [employer] Relationship Specialty Start Date End Date Willam Estrada MD [address] [place], [place] [address] PCP - General 01/15/06 Mona Corrigan MD [address] [place], [place] [id number] Pulmonary and Critical Care Medicine 11/11/23 Shaq Rush MD [address] [id number] Cardiology 11/25/23 Allegra Berumen APRN.PARTS DEPARTMENT MANAGER [address] [place], [place] [address] Ekg Technician Internal Medicine 12/01/24 Leilani Ramirez APRN.PRETZEL PACKER [address] [place], [place] [address] [facility] Internal Medicine 01/27/25 Goals (unrecognized section and content) Goals may be documented in a n alternate sectionGoals may be documented in an alternate sectionGoals may be documented in an alternate sectionGoals may be documented in an alternate sectionGoals may be documented in an alternate sectionGoals may be documented in an alternate sectionGoals may be documented in an alternate sectionGoals may be documented in an alternate sectionGoals may be documented in an alternate sectionGoals may be documented in an alternate sectionGoals may be documented in an alternate sectionGoals may be documented in an alternate sectionGoals may be documented in an alternate sectionGoals may be documented in an alternate sectionGoals may be documented in an alternate sectionGoals may be documented in an alternate sectionGoals may be documented in an alternate sectionGoals may be documented in an alternate sectionGoals may be documented in an alternate sectionGoals may be documented in an alternate sectionGoals may be documented in an alternate sectionGoals may be documented in an alternate section FOR RECORDS PERTAINING TO PATIENTS WHO ARE OR HAVE BEEN ENROLLED IN A CHEMICAL DEPENDENCY/SUBSTANCEABUSE PROGRAM, SOME INFORMATION MAY BE OMITTED. This clinical summary was aggregated from multiple sources. Caution should be exercised in using it in the provision of clinical care. This summary normalizes information from multiple sources, and as a consequence, information in this document may materially change the coding, format and clinical context of patient data. In addition, data may be omitted in some cases. CLINICAL DECISIONS SHOULD BE BASED ON THE PRIMARY CLINICAL RECORDS. [facility] [employer] [facility]. provides no warranty or guarantee of the accuracy or completeness of information in this document.
--- OUTSIDE RECORDS SUMMARY | 2025-03-13 13:46 | XMS RPT_ITS | CCD ---
Author Organization [facility] Care Team Providers Care Acrobatic Rigger Name Role Phone RADHA JETT Unavailable Unavailable RADHA JETT Unavailable Unavailable RADHA JETT Unavailable Unavailable RADHA JETT Unavailable Unavailable Willam Estrada MD Primary Care Provider Kimmy Mariscal RN Unavailable Dr. Willam Estrada Primary Care Provider Ya Talley Attending Provider Unavailable Dr. Willam Estrada Referring Provider Kori SPECIAL EDUCATION PROFESSOR, SPECIAL EDUCATION PROFESSOR-C Carrie Deng Attending Provider Dr. Tarik Villegas Attending Provider Leila Lawton RN Unavailable Unavailable Kimmy Mariscal RN Unavailable [phone] Willam Estrada MD Primary Care Provider Leila Lawton RN Unavailable Unavailable Jesús BARRAGAN, SPECIAL EDUCATION PROFESSORJosefinaC Soha Attending Provider Dr. Willam Estrada Primary Care Provider Dr. Willam Estrada Referring Provider Rola Browne RN Unavailable Willam Estrada MD Primary Care Provider Rola Browne RN Unavailable Rola Browne RN Unavailable Dr. Willam Estrada Primary Care Provider Dr. Willam Estrada Referring Provider Kori BARRAGAN, SPECIAL EDUCATION PROFESSOR-C Carrie Deng Attending Provider Friend, Dr. Trevino [...] Dr. Trevino Other Provider [phone] Willam Estrada MD Primary Care Provider Rivas COLE, Alyssa Rushing Unavailable Ramone COLE, Oxana Unavailable Unavailable Pavan COLE, Rola Deng Unavailable [phone] Rivas COLE, Alyssa Rushing Unavailable Leila Lawton RN Unavailable Unavailable Juanita LUTZ, Kati Unavailable Unavailabl seun Hathaway RN, Alyssa Rushing Unavailable James SUPPLY CHAIN PROGRAM MANAGER.SHEET METAL ENGINEER, Leilani Unavailable [place] SUPPLY CHAIN PROGRAM MANAGER.HOG FEEDER, Allegra Unavailable [place] SUPPLY CHAIN PROGRAM MANAGER.HOG FEEDER, Allegra Unavailable [place] SUPPLY CHAIN PROGRAM MANAGER.HOG FEEDER, Allegra Unavailable Dr. Willam Estrada MD Primary Care Provider [phone] Rohan SUE, Dr. Robertson Emergency Provider David SUE, Dr. Vásquez Admit Provider David SUE, Dr. Vásquez Other Provider Gume SEU, Dr. Neal Ortiz Attending Provider David SUE, [...] Provider Wojciech SUE, Dr. Lu Attending Provider [phone] Mabel SUE, Dr. Willam Pantoja Primary Care Provider [place] SUPPLY CHAIN PROGRAM MANAGER.HOG FEEDER, Allegra Unavailable Mabel SUE, Dr. Willam Pantoja Primary Care Provider Mabel SUE, Dr. Willam Pantoja Referring Provider Raghav SUE, Dr. Lozano Attending Provider Yusra [...] Willam D Primary Care Unavailable Thalia Hernandez Consulting Unavailable Rosendo Gracia Attending Unavailable Talampas, [...] Care Unavailable Rosendo Gupta Attending Unavailable James PEREZ.SHEET METAL ENGINEER, Leilani Unavailable TALAMPAS, WILLAM D Primary Care [...] HYDROcodone Drug Allergy 09-07-20 19 GI Upset [facility] Adrenergic Agonists (1 source) Pseudoephedrine Drug Allergy 09-21-19 16 Intolerance [facility] Cephalosporins (antibiotic) (2 sources) Cephalosporins (Antibiotic) Drug Allergy 05-28-20 23 Rash, Hives [facility] Corticosteroids (1 source) predniSONE Drug Allergy 08-07-20 22 Intolerance [facility] Opioid Agonists (1 source) HYDROmorphone Drug Allergy 11-17-19 11 Mental Status Change [facility] Work Phone: Penicillins (antibiotic) (1 source) Penicillins Drug Allergy 05-01-20 05 Hives, Other: See Comments [facility] Serotonin Reuptake Inhibitors (SSRIs) (2 sources) PARoxetine Drug Allergy 05-01-20 05 Intolerance, Mental Status Change, Diarrhea [facility] (20 sources) Acetaminophen / HYDROcodone; Translations: [HYDROCODONE-ACETA MINOPHEN] Drug Allergy 09-07-20 19 GI Upset [facility] (20 sources) FLUoxetine; Translations: [FLUOXETINE HCL] Drug Allergy 05-01-20 05 Mental Status Change, Diarrhea [facility] Work Phone: (20 sources) House dust mite; Translations: [DUST MITES] Propensity to adverse reactions 02-14-20 07 [facility] (20 sources) HYDROmorphone; Translations: [HYDROMORPHONE (BULK)] Drug Allergy 11-17-19 11 Mental Status Change [facility] Work Phone: (20 sources) PARoxetine; Translations: [PAROXETINE] Drug Allergy 02-18-20 19 Intolerance [facility] Work Phone: (20 sources) Penicillins; Translations: [PENICILLINS] Drug Allergy 05-01-20 05 Hives, Other: See Comments [facility] (20 sources) Pseudoephedrine; Translations: [PSEUDOEPHEDRINE] Drug Allergy 09-21-19 16 Intolerance [facility] Work Phone: (16 sources) Acetaminophen Drug Allergy 04-26-20 20 Upset Stomach [facility] (20 sources) FLUoxetine Drug Allergy 04-26-20 20 Chest tightness [facility] (20 sources) HYDROcodone Drug Allergy 04-26-20 20 Upset Stomach [facility] (20 sources) HYDROmorphone Drug Allergy 12-01-19 Altered mental status [facility] (20 sources) Penicillins Drug Allergy 05-01-20 05 Hives, Other: See Comments [facility] (20 sources) Penicillins Allergy to substance 02-17-20 22 Hives [facility] (20 sources) house dust mite; Translations: [house dust mite] Allergy to substance 03-30-20 NEEDS FOLLOW-UP [facility] (20 sources) predniSONE; Translations: [PREDNISONE] Drug Allergy 08-07-20 Intolerance [facility] Comment on above: Exacerbation of side effects (20 sources) Cephalosporins (Antibiotic); Translations: [CEPHALOSPORINS] Allergy to substance 05-26-20 Rash [facility] (20 sources) Cephalosporins (Antibiotic) Drug Allergy 05-28-20 Rash [facility] (20 sources) cefdinir; Translations: [CEFDINIR] Drug [facility]-20 [facility] Work Phone: (20 sources) Doxycycline; Translations: [DOXYCYCLINE] Drug Allergy 04-20-20 24 GI Upset [facility] (15 sources) amLODIPine; Translations: [AMLODIPINE] Drug Allergy 11-26-19 Intolerance [facility] (3 sources) egg extract Drug Allergy 11-17-19 Diarrhea [facility] Comment on above: stomach aches (9 sources) Penicillins Drug Allergy 05-01-20 05 Hives, Other: See Comments [facility] (1 source) Cephalosporins (Antibiotic) Drug allergy (disorder) 02-05-20 [facility] (1 source) egg extract Drug Allergy 02-05-20 25 [facility] (1 source) FLUoxetine Drug Allergy 02-05-20 25 [facility] (1 source) HYDROcodone Drug Allergy 02-05-20 25 [facility] (1 source) HYDROmorphone Drug Allergy 02-05-20 25 [facility] (1 source) Penicillins Drug allergy (disorder) 02-05-20 25 [facility] (1 source) predniSONE Drug Allergy 02-05-20 25 [facility] (1 source) Pseudoephedrine Drug Allergy 02-05-20 25 [facility] Medications Current Medications Medication Drug Class(es) Dates Sig (Normalized) Sig (Original) [id number] 200 actuat albuterol 0.09 mg/actuat metered dose [...] oral solution (1 source) alpha-Adrenergic Agonist, Uncompetitive U-lqunud-B-aspartate Receptor Antagonist, Sigma-1 Agonist Start: 11-27-19 End: [...] on above: Take 1 capsule by mo [facility] twice daily for 10 days. cetirizine hydrochloride [...] on above: Take 1 capsule by mo [facility] once daily. COVID-19 antigen test (COVID-19 AT-HOME [...] rhinitis, unspecified seasonality, unspecified trigger Use 1 [place] in each nostril once daily. 1 Bottle [...] six hours as needed for wheezing Ipratropium [place] 0.02 % solution Active 2.5 mL INHALATION [...] on above: Take 2 tablets by mo [facility] once daily. traZODone hydrochloride 100 mg oral [...] 29, 2019 August 06, 2019 1:08am amylase 240917 unt / lipase 73849 unt / protease 10469 unt delayed release oral capsule (20 sources) Start: 07-26-2023 End: 10-11-2023 take 35082-11944 capsules by mouth three times daily at mealtime Ihylil-Evqpbqdr-Zacnayk (Creon) 24,000-76,000 -120,000 unit capsule,delayed release(DR/EC) Discontinued 1 NMA PO THREE TIMES A DAY July 26, 2023 4:00pm October 11, 2023 1:12pm administer with meals and/or snacks Start: 03-21-2023 End: 08-12-2024 take 1 capsule by mouth at mealtime vsojrc-wgjfbxta-hxzsvnh (CREON 24) 24,000-76,000 -120,000 unit delayed release capsule Take 1 capsule by mouth with meals. With snacks and meals 03/21/2023 08/12/2024 Discontinued (Discontinued by Patient) Start: 03-21-2023 take 27057-78881 cap sules by mouth three times daily at mealtime Ctilfi-Xsqlipnw-Zoepxdr (Creon) 24,000-76,000 -120,000 unit capsule,delayed release(DR/EC) Active 1 CAP PO THREE TIMES A DAY March 21, 2023 12:00am administer with meals and/or snacks Start: 01-04-2022 End: 02-16-2022 Tgbtyc-Xfykwxda-Lbkyzmo (Cre on) 24,000-76,000 -120,000 unit capsule,delayed release(DR/EC) [...] Comment on above: Take 1 capsule by [facility] twice daily for 7 days. ciprofloxacin [...] Stage 2 moderate COPD by GOLD classification (FORMERLY [facility]) Inhale 1 Inhalation as instructed once daily. [...] uth twice daily for 5 days. nystatin [id number] unt/ml oral suspension (20 sources) Polyene Antifungal [...] July 10, 2024 2:00pm polyethylene glycol 3350 09336 mg powder for oral solution (3 sources) Osmotic Laxative Start: 03-24-2024 End: 09-08-2024 Polyethylene Glycol 3350 (Miralax) 17 gram/dose powder Discontinued 17 g PO DAILY March 24, 2024 12:00am September 08, 2024 4:41pm polyethylene glycol 3350 135409 mg / potassium chloride 2970 mg / sodium bicarbonate 6740 mg / sodium chloride 5860 mg / sodium sulfate 10235 mg powder for oral solution (20 sources) [...] (9 sources) Patient encounter status; Translations: [Other longterm (current) drug therapy] Episodic Other aftercare (1 source) Long-term current use of drug therapy; Translations: [Other ferry terminal agent (current) drug therapy] 04-20-2024 Episodic Other and [...] with chronic obstructive pulmonary disease (COPD) (HCC) (FORM[facility]LY [facility])] Onset: 4 Episodic Biliary tract disease (20 [...] sitz bath's, and her choice of another bkyq-eva-vmerics agent to see what implementation of these [...] 05-31-2023 Episodic Other aftercare (1 source) Other longterm (current) drug therapy; Translations: [Encounter for long-term [...] Reference Range Facility CNOVon 03-02-2025 CNOV Normal [facility] XR ANKLE 2V AP/LAT RTon 02-08 XR ANKLE 2V AP/LAT RT Normal [facility] XR FOOT 3V AP/LAT/OBL RTon 0 03-02-2025 XR FOOT 3V AP/LAT/OBL RT Normal [facility] Bacteria Ur Culton 5 Bacteria identified Cx Nom (U) ORGANISM ID: 1 10,000 -<50,000 CFU/ml Normal urogenital bill Normal [facility] Comment on above: Performed By: #### 6 30-4 ####[facility]CL[facility] [id number] [address] STATES OF [facility] CNOVon 02-25-2025 CNOV Normal [facility] UA DIP, URINE (POC)on 2024 BILIRUBIN UA (POCT) Negative Negative [facility] CLARITY UA (POCT) Clear [facility] COLOR UA (POCT) Yellow [facility] GLUCOSE UA (POCT) Negative Negative mg/dL [facility] Hemoglobin Ql (U) Negative Negative [facility] KETONE UA (POCT) Negative Negative mg/dL [facility] LEUKOCYTES UA (POCT) Negative Negative [facility] NITRITE UA (POCT) Negative Negative [facility] PH UA (POCT) 5.5 4.5 - 8.0 [facility] Protein Ql (U) Negative Negative mg/dL [facility] SPECIFIC GRAVITY UA (POCT) 1.01 1.005 - 1.030 [facility] UROBILINOGEN UA (POCT) 0.2 Leonie l E.U./dL [facility] Location:[facility], [address] [place] [address], [place], [place], [id number] [place] [address] POINT OF CARE [facility] Orthopedic Visit Reporton Orthopedic Visit Report Normal [facility] Bacteria Ur Culton 5 Bacteria identified Cx Nom (U) ORGANISM ID: 1 <10,000 CFU/ml Normal urogenital bill Normal [facility] Comment on above: Performed By: #### 6 30-4 ####[facility] LABCLIA [id number] [place] [address] [place] CNOVon 01-12-2025 CNOV Normal [facility] UA DIP, URINE (POC)on 2024 BILIRUBIN UA (POCT) Negative Negative [facility] CLARITY UA (POCT) Clear [facility] COLOR UA (POCT) Yellow [facility] GLUCOSE UA (POCT) Negative Negative mg/dL [facility] Hemoglobin Ql (U) Negative Negative [facility] KETONE UA (POCT) Negative Negative mg/dL [facility] LEUKOCYTES UA (POCT) Negative Negative [facility] NITRITE UA (POCT) Negative Negative [facility] PH UA (POCT) 6 4.5 - 8.0 [facility] Protein Ql (U) Negative Negative mg/dL [facility] SPECIFIC GRAVITY UA (POCT) 1.015 1.005 - 1.030 [facility] UROBILINOGEN UA (POCT) 0.2 Leonie l E.U./dL [facility] Location:[address], [address] [place] [address] POINT OF CARE [facility] CBC panel Auto (Bld)on 12-25 Erythrocyte distribution width (RBC) [Ratio] 14.4 % Normal 11.5-15.0 [facility] Comment on above: Order Comment: Speci men Type: BLOOD SPECIMENOrdering Facility: [facility] Address: [address] [place] [address] Performed By: #### 5 8410-2 ####[facility] LABIA [id number] [place] [address] [place] Hematocrit (Bld) [Volume fraction] 42.3 % Normal 36.0-46.0 [facility] Comment on above: Order Comment: Speci men Type: BLOOD SPECIMENOrdering Facility: [facility] Address: [address] [place] [address] Performed By: #### 5 8410-2 ####[facility]CL[facility] [id number] [place] [address] [place] Hemoglobin (Bld) [Mass/Vol] 13.6 g/dL Normal 11.5-15.5 [facility] Comment on above: Order Comment: Speci men Type: BLOOD SPECIMENOrdering Facility: [facility] Address: [address] [place] [address] Performed By: #### 5 8410-2 ####[facility] LABIA [id number] [place] [address] [place] MCH (RBC) [Entitic mass] 26.7 pg Normal 26.0-34.0 [facility] Comment on above: Order Comment: Speci men Type: BLOOD SPECIMENOrdering Facility: [facility] Address: [address] [place] [address] Performed By: #### 5 8410-2 ####[facility] LABIA [id number] [address] [place] MCHC (RBC) [Mass/Vol] 32.2 g/dL Normal 30.5-36.0 [facility] Comment on above: Order Comment: Speci men Type: BLOOD SPECIMENOrdering Facility: [facility] Address: [address] [place] [address] Performed By: #### 5 8410-2 ####[facility] [id number] [place] [address] [place] MCV (RBC) [Entitic vol] 83.1 fL Normal 80.0-100.0 [facility] Comment on above: Order Comment: Speci men Type: BLOOD SPECIMENOrdering Facility: [facility] Address: [address] [place] [address] Performed By: #### 5 8410-2 ####[facility] LABIA [id number] [place] [address] [place] Nucleated RBC (Bld) [#/Vol] 10*3/uL Normal <0.01 [facility] Comment on above: Order Comment: Speci men Type: BLOOD SPECIMENOrdering Facility: [facility] Address: [address] [place] [address] Performed By: #### 5 8410-2 ####[facility] LABIA [id number] [place] [address] [place] Platelet mean volume (Bld) [Entitic vol] 10.2 fL Normal 9.0-12.7 [facility] Comment on above: Order Comment: Speci men Type: BLOOD SPECIMENOrdering Facility: [facility] Address: [address] [place] [address] Performed By: #### 5 8410-2 ####[facility] LABIA [id number] [place] [address] [place] Platelets (Bld) [#/Vol] 297 10*3/uL Normal 150-400 [facility] Comment on above: Order Comment: Speci men Type: BLOOD SPECIMENOrdering Facility: [facility] Address: [address] [place] [address] Performed By: #### 5 8410-2 ####[facility] LABIA [id number] [place] [address] [place] RBC (Bld) [#/Vol] 5.09 10*6/uL Normal 3.90-5.20 [facility] Comment on above: Order Comment: Speci men Type: BLOOD SPECIMENOrdering Facility: [facility] Address: [address] [place] [address] Performed By: #### 5 8410-2 ####[facility] LABIA [id number] [place] [address] [place] WBC (Bld) [#/Vol] 7.77 10*3/uL Normal 3.70-11.00 [facility] Comment on above: Order Comment: Speci men Type: BLOOD SPECIMENOrdering Facility: [facility] Address: [address] [place] [address] Performed By: #### 5 8410-2 ####[facility] LABCLIA [id number] [address] [address] [place] Comprehensive metabolic 2000 panelon 12-25-2024 Albumin [Mass/Vol] 4.3 g/dL Normal 3.9-4.9 [facility] Comment on above: Order Comment: Speci men Type: BLOOD SPECIMENOrdering Facility: [facility] Address: [address] [place] [address] Performed By: #### 1 9123-9, 04483-8, 93899-1 ####[facility] LABCLIA [id number] [place] [address] [place] ALP [Catalytic activity/Vol] 102 U/L Normal 34-123 [facility] Comment on above: Order Comment: Speci men Type: BLOOD SPECIMENOrdering Facility: [facility] Address: [address] [place] [address] Performed By: #### 1 9123-9, 93396-9, 78143-4 ####[facility] LABCLIA [id number] [place] [address] [place] ALT [Catalytic activity/Vol] 14 U/L Normal 7-38 [facility] Comment on above: Order Comment: Speci men Type: BLOOD SPECIMENOrdering Facility: [facility] Address: [address] [place] [address] Performed By: #### 1 9123-9, 08267-2, 82527-6 ####[facility] LABCLIA [id number] [address] [address] [place] Anion gap [Moles/Vol] 12 mmol/L Normal 8-15 [facility] Comment on above: Order Comment: Speci men Type: BLOOD SPECIMENOrdering Facility: [facility] Address: [address] [place] [address] Performed By: #### 1 9123-9, 87224-2, 89621-9 ####[facility]CLIA [id number] [address] [address] [place] AST [Catalytic activity/Vol] 25 U/L Normal 13-35 [facility] Comment on above: Order Comment: Speci men Type: BLOOD SPECIMENOrdering Facility: [facility] Address: [address] [place] [address] Performed By: #### 1 9123-9, 17847-6, 83616-8 ####[facility] LABCLIA [id number] [address] [address] [place] Bilirubin [Mass/Vol] 0.3 mg/dL Normal 0.2-1.3 [facility] Comment on above: Order Comment: Speci men Type: BLOOD SPECIMENOrdering Facility: [facility] Address: [address] [place] [address] Performed By: #### 1 9123-9, 76189-1, 56091-6 ####[facility] LABCLIA [id number] [place] [address] [place] Calcium [Mass/Vol] 9.4 mg/dL Normal 8.5-10.2 [facility] Comment on above: Order Comment: Speci men Type: BLOOD SPECIMENOrdering Facility: [facility] Address: [address] [place] [address] Performed By: #### 1 9123-9, 73824-6, 11636-5 ####[facility] LABCLIA [id number] [address] [address] [place] Chloride [Moles/Vol] 102 mmol/L Normal 98-107 [facility] Comment on above: Order Comment: Speci men Type: BLOOD SPECIMENOrdering Facility: [facility] Address: [address] [place] [address] Performed By: #### 1 9123-9, 31015-9, 10146-4 ####[facility] LABCLIA [id number] [place] [address] [place] CO2 [Moles/Vol] 26 mmol/L Normal 22-30 [facility] Comment on above: Order Comment: Speci men Type: BLOOD SPECIMENOrdering Facility: [facility] Address: [address] [place] [address] Performed By: #### 1 9123-9, 91283-4, 48203-9 ####[facility] LABCLIA [id number] [place] [address] [place] Creatinine [Mass/Vol] 0.54 mg/dL Low 0.58-0.96 [facility] Comment on above: Order Comment: Speci men Type: BLOOD SPECIMENOrdering Facility: [facility] Address: [address] [place] [address] Performed By: #### 1 9123-9, 01454-3, 75251-4 ####[facility] LABIA [id number] [place] [address] [place] Creatinine and Glomerular filtration rate.predicted panel (S/P/Bld) 103 mL/min/1.73m??? Normal >=60 [facility] Comment on above: Order Comment: [place] Type: BLOOD SPECIMENOrdering Facility: [facility] Address: [address] [place] [address] Result Comment: Inge mated Glomerular Filtration Rate [...] actual GFR. Performed By: #### 1 9123-9, 92995-0, 18403-4 ####[facility] LABCLIA [id number] [place] [address] [place] Glucose [Mass/Vol] 123 mg/dL High 74-99 [facility] Comment on above: Order Comment: Speci men Type: BLOOD SPECIMENOrdering Facility: [facility] Address: [address] [place], [place] [address] Result Comment: The [place] [employer] Association (ADA) provides guidance for cutoff [...] Standards of Medical Care in Diabetes 2016, [place] [employer]. Diabetes Care. 2016.39(Suppl 1). Performed By: #### 1 9123-9, 38108-7, 52748-1 ####[facility] LABCLIA [id number] [place] [address] [place] Potassium [Moles/Vol] 3.6 mmol/L Low 3.7-5.1 [facility] Comment on above: Order Comment: Nancy men Type: BLOOD SPECIMENOrdering Facility: [facility] Address: [address] [place] [address] Performed By: #### 1 9123-9, 81254-8, 49534-7 ####[facility] LABCLIA [id number] [place] [address] [place] Protein [Mass/Vol] 7.3 g/dL Normal 6.3-8.0 [facility] Comment on above: Order Comment: Nancy men Type: BLOOD SPECIMENOrdering Facility: [facility] Address: [address] [place], [place] [address] Performed By: #### 1 9123-9, 42493-3, 43980-4 ####[facility]CLIA [id number] [facility] [address] [address] [place] Sodium [Moles/Vol] 140 mmol/L Normal 136-144 [facility] Comment on above: Order Comment: Yesyi men Type: BLOOD SPECIMENOrdering Facility: [facility] Address: [address] [place] [address] Performed By: #### 1 9123-9, 70956-0, 67987-1 ####[facility] LABCLIA [id number] [place] [id number] [place] Urea nitrogen [Mass/Vol] 9 mg/dL Normal 7-21 [facility] Comment on above: Order Comment: Yesyi men Type: BLOOD SPECIMENOrdering Facility: [facility] Address: [address] [place] [address] Performed By: #### 1 9123-9, 07601-7, 96205-1 ####[facility] LABCLIA [id number] [place] [address] [place] HbA1c (Bld)on 12-25-2024 Average glucose Estimated from glycated hemoglobin (Bld) [Mass/Vol] 154 mg/dL Normal [facility] Comment on above: Order Comment: Nancy men Type: BLOOD SPECIMENOrdering Facility: [facility] Address: [address] [place] [address] Result Comment: eAG: (Estimated average glucose) is a calculated value from HgbA1c and is new accounts representative of the average blood glucose level in the last 2-3 month period. Performed By: #### 5 5454-3 ####[facility] LABIA [id number] [place] [address] [place] HbA1c (Bld) [Mass fraction] 7.0 % High 4.3-5.6 [facility] Comment on above: Order Comment: Nancy shasta Type: BLOOD SPECIMENOrdering Facility: [facility] Address: [address] [place] [address] Result Comment: Amer [place] Diabetes Association guidelines indicate that patients with HgbA1c in the range 5.7-6.4% are at increased risk for development of diabetes, and intervention by lifestyle modification may be beneficial. HgbA1c greater or equal to 6.5% is considered diagnostic of diabetes. Performed By: #### 5 5454-3 ####[facility] LABCLIA [id number] [place] [address] [place] Lipid 1996 panelon 5 Cholesterol [Mass/Vol] 117 mg/dL Normal <200 [facility] Comment on above: Order Comment: Speci men Type: BLOOD SPECIMENOrdering Facility: [facility] Address: [address] [place] [address] Result Comment: <200 mg/dL, Desirable 200-239 mg/dL, Borderline high>239 mg/dL, High Performed By: #### 1 9123-9, 57891-3, 55880-6 ####[facility] LABCLIA [id number] [address] OF [facility] Cholesterol in HDL [Mass/Vol] 23 mg/dL Low >39 [facility] Comment on above: Order Comment: Yesyi [facility] Type: BLOOD SPECIMENOrdering Facility: [facility] Address: [address] [place] [address] Result Comment: 40-5 9 mg/dL, Acceptable>59 mg/dL, High: Negative risk factor for coronary heart disease<40 mg/dL, Low: Positive risk factor for coronary heart disease Performed By: #### 1 9123-9, 61458-4, 64878-8 ####[facility] LABCLIA [id number] [place] [id number] [facility] Cholesterol in LDL [Mass/Vol] 44 mg/dL Normal <100 [facility] Comment on above: Order Comment: Speci [facility] Type: BLOOD SPECIMENOrdering Facility: [facility] Address: [address] [place] [address] Result Comment: <100 mg/dL, Optimal 100-129 mg/dL, Near optimal/above optimal 130-159 mg/dL, Borderline high 160-189 mg/dL, High>189 mg/dL, Very highSecondary prevention optimal LDL Cholesterol levels are recommended to be < 70 mg/dL Performed By: #### 1 9123-9, 67092-9, 95178-3 ####[facility] LABCLIA [id number] [place] [address] [place] Cholesterol in LDL/Cholesterol in HDL [Mass ratio] 1.91 {ratio} Normal <2.54 [facility] Comment on above: Order Comment: Speci men Type: BLOOD SPECIMENOrdering Facility: [facility] Address: [address] [place] [address] Result Comment: Refe lesliece:1. National Cholesterol Education Program ATP III Guideline At-A-Glance Quick Desk Reference: National Heart, Lung, and Blood [place]. National Institutes of Health. 2001: NIH Publication No. 01-3305.2. An International Atherosclerosis Society position paper: global recommendations for the management of dyslipidemia: executive summary, Atherosclerosis. 2014: 232(2):410-413. Performed By: #### 1 9123-9, 66668-9, 41372-9 ####[facility] LABCLIA [id number] [place] [address] [place] Cholesterol in VLDL [Mass/Vol] 50 mg/dL High <30 [facility] Comment on above: Order Comment: Speci men Type: BLOOD SPECIMENOrdering Facility: [facility] Address: [address] [place] [address] Performed By: #### 1 9123-9, 45568-6, 74637-3 ####[facility] LABCLIA [id number] [address] [place] Cholesterol non HDL [Mass/Vol] 94 mg/dL Normal <130 [facility] Comment on above: Order Comment: Speci men Type: BLOOD SPECIMENOrdering Facility: [facility] Address: [address] [place] [address] Result Comment: <130 mg/dL, Optimal 130-159 mg/dL, Near optimal/above optimal 160-189 mg/dL, Borderline high 190-219 mg/dL, High>219 mg/dL, Very highSecondary prevention optimal non HDL Cholesterol levels are recommended to be <100 mg/dL Performed By: #### 1 9123-9, 92292-4, 65843-2 ####[facility] LABCLIA [id number] [address] [address] [place] Cholesterol.total/Chol esterol in HDL [Mass ratio] 5.09 {ratio} Normal <5.10 [facility] Comment on above: Order Comment: Speci men Type: BLOOD SPECIMENOrdering Facility: [facility] Address: [address] [place] [address] Performed By: #### 1 9123-9, 47587-9, 47955-3 ####[facility] LABIA [id number] [address] [place] FASTING TIME 12 hrs Normal [facility] Comment on above: Order Comment: Speci men Type: BLOOD SPECIMENOrdering Facility: [facility] Address: [address] [place] [address] Performed By: #### 1 9123-9, 30403-2, 65670-0 ####[facility] LABIA [id number] [place] [address] [place] Triglyceride [Mass/Vol] 249 mg/dL High <150 [facility] Comment on above: Order Comment: Speci men Type: BLOOD SPECIMENOrdering Facility: [facility] Address: [address] [place] [address] Result Comment: <150 mg/dL, Normal 150-199 mg/dL, Borderline high 200-499 mg/dL, High>499 mg/dL, Very high Performed By: #### 1 9123-9, 46894-9, 42165-3 ####[facility] LABIA [id number] [address] [address] [place] Magnesium SerPl-mCncon 12-25 Magnesium [Mass/Vol] 1.9 mg/dL Normal 1.7-2.3 [facility] Comment on above: Order Comment: Speci men Type: BLOOD SPECIMENOrdering Facility: [facility] Address: [address] [place] [address] [place] [address] Performed By: #### 1 9123-9, 99027-8, 16628-8 ####[facility] LABCLIA [id number] [facility] [place] [address] [place] Orthopedic Visit Reporton Orthopedic Visit Report Normal [facility] Magnetic resonance imaging r eportOrdered By: Tab Martinez on 12-19-2024 Study report [facility] Imaging Services [address] [place], [place] [id number] Spine Lumbar (Routine) MR#: [id number] Acct: [id number] Name: GARLAND DE SANTIAGO Rep #: [id number] : 1960 F 64 From: George Martinez DO PCP: Dr. Willam Estrada MD Status: RE G CLI Study:Spine Lumbar (Routine) Date of Exam: 12/18/24 Exam# [id number] Ordering Dr: Néstor Cabello PA PROCEDURE: SPINE [...] Location: [place] CC: KEVIN Beckham; Dr. Willam Estrada MD ~ 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Signed [facility] Spine Lumbar (Routine)on Spine Lumbar (Routine) Normal [facility] CNPTOUTREACHon 12-11-2024 CNPTOUTREACH Normal [facility] CNPTOUTREACHon 12-09-2024 CNPTOUTREACH Normal [facility] CNPTOUTREACHon 12-04-2024 CNPTOUTREACH Normal [facility] CNPNon 11-26-2024 CNPN Normal [facility] CNOVon 11-25-2024 CNOV Normal [facility] CNOVon 11-24-2024 CNOV Normal [facility] CT Chest for screening [facility] ntraston 11-23-2024 IMPRESSION: LungRADS category: 2 S LungRADS modifier: Significant other (S), coronary artery calcification, moderate or severe LungRADS 0 reason: n/a Recommendations: Continue annual screening with LDCT in 12 months. Other actionable findings: Reference: [employer]. Lung CT Screening Reporting and Data System (Lung-RADS). Available at: http://www.acr.org/Qualit y-Safety/Resources/LungRA DS 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OLIVE Transcribe Date/Time: Nov 23 2024 4:24P Dictated by : RACHEL GUEVARA MD This examination was interpreted and the report reviewed and electronically signed by: RACHEL GUEVARA MD on Nov 23 2024 8:04PM [facility] DIVISION OF RADIOLOGY * * *Final Report* * * DATE OF EXAM: Nov 23 2024 3:54PM [facility] 0562 - CT LUNG SCREEN [facility] / PROCEDURE REASON: Tobacco use current * [...] without contrast. MQ: CTLCS_6 Patient characteristics: * Xevm-xq-Qyzst: 1960; Age at exam: 64 years * Gender: Female * Lung Disease: Asymptomatic (no signs or symptoms of lung disease) * Number of Pack Years: 54 * Current smoker (=0) or Number of Years since Quit: 0 * Ordering provider and NPI: JUSTYNA MORA [id number] * Interpreting radiologist and NPI: Jade [id number] Exam acquisition parameters: * Exam Date: 11/23/2024 3:54 PM * Site: [facility] * * CT System Invoicing Machine Operator: Siemens * CT System Model: Sensation * [...] No significant findings. DIVISION OF RADIOLOGY Provider, [facility] - 11/23/2024 * * *Final Report* * * DATE OF EXAM: Nov 23 2024 3:54PM [facility] 0562 - CT LUNG SCREEN [facility] / PROCEDURE REASON: Tobacco use current * [...] without contrast. MQ: CTLCS_6 Patient characteristics: * Rpxr-ui-Nnecg: 1960; Age at exam: 64 years * Gender: Female * Lung Disease: Asymptomatic (no signs or symptoms of lung disease) * Number of Pack Years: 54 * Current smoker (=0) or Number of Years since Quit: 0 * Ordering provider and NPI: JUSTYNA MORA [id number] * Interpreting radiologist and NPI: Jade [id number] Exam acquisition parameters: * Exam Date: 11/23/2024 3:54 PM * Site: [facility] * * CT System Invoicing Machine Operator: [employer] * CT System Model: Sensation * Tube [...] in 12 months. Other actionable findings: Reference: [employer]. Lung CT Screening Reporting and Data System (Lung-RADS). Available at: http://www.acr.org/Qualit y-Safety/Resources/LungRA DS 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OLIVE Transcribe Date/Time: Nov 23 2024 4:24P Dictated by : RACHEL GUEVARA MD This examination was interpreted and the report reviewed and electronically signed by: RACHEL GUEVARA MD on Nov 23 2024 8:04PM EST [facility] Radiology Study observation (narrative) [facility] CT Chest for screening WO co ntrastOrdered By: Ccf Provider on 11-23-[address] [facility] [address] LUNG SCREEN WO IVCONon CT LUNG SCREEN WO IVCON Normal [facility] CNPNon 11-19-2024 CNPN Normal [facility] CNOVon 11-18-2024 CNOV Normal [facility] Orthopedic Visit Reporton Orthopedic Visit Report Normal [facility] NCS and/or EMG Patienton NCS and/or EMG Patient Normal [facility] PT D/C Summary (1)on 025 PT D/C Summary (1) Normal [facility] Cardiology Visit Reporton Cardiology Visit Report Normal [facility] Office Visit Reporton 2024 Office Visit Report Normal [facility] DBT Breast - bilateral scree ningon 10-07-2024 [...] Indigo Dhaliwal M.D. Electronically signed on: 10/07/2024 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ANAMIKA Transcribe Date/Time: Oct 07 2024 3:03P Dictated by: INDIGO DHALIWAL MD This examination was interpreted and the report reviewed and electronically signed by: INDIGO DHALIWAL MD on Oct 07 2024 10:49PM [facility] DIVISION OF RADIOLOGY * * *Final Report* * * DATE OF EXAM: Oct 07 2024 3:26PM [facility] 0582 - [facility] SCREENING W STARLA / PROCEDURE REASON: multiple diagnoses * * * * Physician Interpretation * * * * RESULT: [facility] [address] [place] [address] #[id number] - [facility] SCREENING W STALRA HISTORY: 64 year-old patient seen for screening [...] significant interval changes. DIVISION OF RADIOLOGY Provider, [facility] - 10/07/2024 * * *Final Report* * * DATE OF EXAM: Oct 07 2024 3:26PM [facility] 0582 - [facility] SCREENING W STARLA / PROCEDURE REASON: multiple diagnoses * * * * Physician Interpretation * * * * RESULT: [facility] [address] [place] [address] #[id number] - [facility] SCREENING W STARLA HISTORY: 64 [...] Indigo Dhaliwal M.D. Electronically signed on: 10/07/2024 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ANAMIKA Transcribe Date/Time: Oct 07 2024 3:03P Dictated by: INDIGO DHALIWAL MD This examination was interpreted and the report reviewed and electronically signed by: INDIGO DHALIWAL MD on Oct 07 2024 10:49PM EST [facility] Radiology Study observation (narrative) [facility] DBT Breast - bilateral scree ningOrdered By: Ccf Provider on 10-07-2024 [facility] JAVIER SCREENING W TOMOon 10-07 JAVIER SCREENING W STARLA Normal [facility] Inital Evaluation (1) - PTon 09-25-2024 Inital Evaluation (1) - PT Normal [facility] Cerv Spine 4 or 5 Viewson Cerv Spine 4 or 5 Views Normal [facility] Orthopedic Visit Reporton Orthopedic Visit Report Normal [facility] Spine Cervical (Routine)on 1 11-04-2023 Spine Cervical (Routine) Normal [facility] CNPTOUTREACHon 08-14-2024 CNPTOUTREACH Normal [facility] CNOVon 08-12-2024 CNOV Normal [facility] CNOVon 08-11-2024 CNOV Normal [facility] Eosinophils Auto (Bld) [#/Vo l]on 08-11-2024 Eosinophils (Bld) [#/Vol] 0.98 10*3/uL High [facility] Interpretation and review of laboratory results Abnormal [facility] Eosinophils (Bld) [#/Vol] 0.98 10*3/uL High <0.46 [facility] Comment on above: Order Comment: Speci men Type: BLOOD SPECIMENOrdering Facility: [facility] Address: [address] [place] [address] Performed By: #### 7 11-2 ####[facility] LABCLIA [id number] [place] [address] [place] IgE SerPl-aCncon 08-11-2024 IgE Qn 413.0 kU/l High <114.0 [facility] Comment on above: Order Comment: Speci men Type: BLOOD SPECIMENOrdering Facility: [facility] Address: [address] [place] [address] Performed By: #### 1 9113-0 ####[facility] LABCLIA [id number] [place] [address] [place] [facility]11 Natriuretic peptide.B prohormone N-Terminal [Mass/Vol] 457 pg/mL High <125 [facility] Comment on above: Order Comment: Speci men Type: BLOOD SPECIMENOrdering Facility: [facility] Address: [address] [place] [address] Performed By: #### 3 3762-6 ####[facility] LABIA [id number] [place] [address] [place] CNPNon 08-10-2024 CNPN Normal [facility] Venous Duplex US, Unilateral on 08-10-2024 Venous Duplex US, Unilateral Normal [facility] 12 Lead EKGon 08-09-2024 12 Lead EKG Normal [facility] Absolute neutrophil countOrd ered By: Kemi Velez on 08-09-2024 Neutrophils (Bld) [#/Vol] 6.3 10*3/uL 2.0-7.7 [facility] Basic Metabolic Profile (BMP )on 08-09-2024 BUN/CRE 21.2 RATIO High 10-20 [facility] Comment on above: Order Comment: 'TROP ' Serial specimen #1, #2 or #3: 1 Performed By: #### L 501.4020, L500.2500, L100.0100 ####[facility] [address] [place], [address] CA,Total 9.2 mg/dL Normal 8.5-10.1 [facility] Comment on above: Order Comment: 'TROP ' Serial specimen #1, #2 or #3: 1 Performed By: #### L 501.4020, L500.2500, L100.0100 ####[facility] [address] [place], [address] Chloride [Moles/Vol] 109 mmol/L High 98-107 [facility] Comment on above: Order Comment: 'TROP ' Serial specimen #1, #2 or #3: 1 Performed By: #### L 501.4020, L500.2500, L100.0100 ####[facility] [address] [place], [address] CO2 [Moles/Vol] 22.0 mmol/L Normal 21.0-32.0 [facility] Comment on above: Order Comment: 'TROP ' Serial specimen #1, #2 or #3: 1 Performed By: #### L 501.4020, L500.2500, L100.0100 ####[facility] [address] [place], [address] Creatinine [Mass/Vol] 0.52 mg/dL Low 0.55-1.02 [facility] Comment on above: Order Comment: 'TROP ' Serial specimen #1, #2 or #3: 1 Result Comment: The validity of the calculated GFR GFRAA in patients over70 years has not been determined. Clinical correlation isessential. Performed By: #### L 501.4020, L500.2500, L100.0100 ####[facility] [address] [place], [address] ECRCL 122.78 ml/min Normal [facility] Comment on above: Order Comment: 'TROP ' Serial specimen #1, #2 or #3: 1 Performed By: #### L 501.4020, L500.2500, L100.0100 ####[facility] [address] [place], [address] EST GFR - AA 153 mL/min Normal >60 [facility] Comment on above: Order Comment: 'TROP ' Serial specimen #1, #2 or #3: 1 Result Comment: Afri can [employer] GFR Calc Performed By: #### L 501.4020, L500.2500, L100.0100 ####[facility] [address] [place], [address] GAP 9 Normal 5-15 [facility] Comment on above: Order Comment: 'TROP ' Serial specimen #1, #2 or #3: 1 Performed By: #### L 501.4020, L500.2500, L100.0100 ####[facility] [address] [place], [address] GFR/1.73 sq M.predicted among non-blacks MDRD (S/P/Bld) [Vol rate/Area] 126 mL/min/{1.73_m2} Normal >60 [facility] Comment on above: Order Comment: 'TROP ' Serial specimen #1, #2 or #3: 1 Result Comment: Non- GFR Calc Performed By: #### L 501.4020, L500.2500, L100.0100 ####[facility] [address] [place], [address] Glucose [Mass/Vol] 109 mg/dL High 74-106 [facility] Comment on above: Order Comment: 'TROP ' Serial specimen #1, #2 or #3: 1 Result Comment: Fast ing Glucose result from 100 to 125 mg/dLsuggests IMPAIRED HOMEOSTASIS per A.D.A. criteria. Performed By: #### L 501.4020, L500.2500, L100.0100 ####[facility] [address] [place], [address] Potassium [Moles/Vol] 3.5 mmol/L Normal 3.5-5.1 [facility] Comment on above: Order Comment: 'TROP ' Serial specimen #1, #2 or #3: 1 Performed By: #### L 501.4020, L500.2500, L100.0100 ####[facility] [address] [place], [address] Sodium [Moles/Vol] 140 mmol/L Normal 136-145 [facility] Comment on above: Order Comment: 'TROP ' Serial specimen #1, #2 or #3: 1 Performed By: #### L 501.4020, L500.2500, L100.0100 ####[facility] [address] [place], [address] Urea nitrogen [Mass/Vol] 11 mg/dL Normal 7-18 [facility] Comment on above: Order Comment: 'TROP ' Serial specimen #1, #2 or #3: 1 Performed By: #### L 501.4020, L500.2500, L100.0100 ####[facility] [address] [place], [address] Basophil percentageOrdered B y: Kemi Velez on 08-09-2024 Basophils/100 WBC (Bld) 0.4 % 0-1 [facility] Bilirubin Test strip Ql (U)O rdered By: Julián Schrader on 08-09-2024 Bilirubin Ql (U) Negative Negative [facility] Blood urea nitrogen (BUN)/cr eatinine ratioOrdered By: Kemi Velez on 08-09-2024 Urea nitrogen/Creatinine [Mass ratio] 21.2 mg/mg High 10-20 [facility] CBC W/Diff, Automatedon 12-0 -2023 Absolute Lymph 3.06 X10 3/uL Normal 0.83-4.51 [facility] Comment on above: Performed By: #### L 501.4020, L500.2500, L100.0100 ####[facility] [address] [place], [address] Absolute Neut 6.3 X10 3/uL Normal 2.0-7.7 [facility] Comment on above: Performed By: #### L 501.4020, L500.2500, L100.0100 ####[facility] [address] [place], [address] Basophils/100 WBC (Bld) 0.4 % Normal 0-1 [facility] Comment on above: Performed By: #### L 501.4020, L500.2500, L100.0100 ####[facility] [address] [place], [address] Eosinophils/100 WBC (Bld) 13.3 % High 0-5 [facility] Comment on above: Performed By: #### L 501.4020, L500.2500, L100.0100 ####[facility] [address] [place], [address] Erythrocyte distribution width (RBC) [Ratio] 13.6 % Normal 11.6-14.6 [facility] Comment on above: Performed By: #### L 501.4020, L500.2500, L100.0100 ####[facility] [address] [place], [address] Hematocrit (Bld) [Volume fraction] 34.9 % Low 37-47 [facility] Comment on above: Performed By: #### L 501.4020, L500.2500, L100.0100 ####[facility] [address] [place], [address] Hemoglobin (Bld) [Mass/Vol] 11.9 g/dL Low 12.0-15.0 [facility] Comment on above: Performed By: #### L 501.4020, L500.2500, L100.0100 ####[facility] [address] [place], [address] IG% 0.600 Normal 0.0-0.9 [facility] Comment on above: Result Comment: IG% - Immature Granulocytes (promyelocytes, myelocytes andmetamyelocytes) > 1% indicates that a LEFT SHIFT is Present. Performed By: #### L 501.4020, L500.2500, L100.0100 ####[facility] [address] [place], [address] Lymphocytes/100 WBC (Bld) 25.9 % Normal 19-41 [facility] Comment on above: Performed By: #### L 501.4020, L500.2500, L100.0100 ####[facility] [address] [place], [address] MCH (RBC) [Entitic mass] 29.0 pg Normal 27.0-32.0 [facility] Comment on above: Performed By: #### L 501.4020, L500.2500, L100.0100 ####[facility] [address] [place], [address] MCHC (RBC) [Mass/Vol] 34.1 g/dL Normal 32-36 [facility] Comment on above: Performed By: #### L 501.4020, L500.2500, L100.0100 ####[facility] [address] [place], [address] MCV (RBC) [Entitic vol] 84.9 fL Normal 81-99 [facility] Comment on above: Performed By: #### L 501.4020, L500.2500, L100.0100 ####[facility] [address] [place], [address] Monocytes/100 WBC (Bld) 6.5 % Normal 0-10 [facility] Comment on above: Performed By: #### L 501.4020, L500.2500, L100.0100 ####[facility] [address] [place], [address] Neutrophils/100 WBC (Bld) 53.3 % Normal 47-70 [facility] Comment on above: Performed By: #### L 501.4020, L500.2500, L100.0100 ####[facility] [address] [place], [address] Nucleated RBC (Bld) [#/Vol] 0 10*3/uL Normal 0-5 [facility] Comment on above: Performed By: #### L 501.4020, L500.2500, L100.0100 ####[facility] [address] [place], [address] Platelet mean volume (Bld) [Entitic vol] 9.8 fL Normal 6.2-12.0 [facility] Comment on above: Performed By: #### L 501.4020, L500.2500, L100.0100 ####[facility] [address] [place], [address] Platelets (Bld) [#/Vol] 353 10*3/uL Normal 150-450 [facility] Comment on above: Performed By: #### L 501.4020, L500.2500, L100.0100 ####[facility] [address] [place], [address] RBC (Bld) [#/Vol] 4.11 10*6/uL Low 4.2-5.4 [facility] Comment on above: Performed By: #### L 501.4020, L500.2500, L100.0100 ####[facility] [address] [place], [address] RDW SD 41.8 fl Normal 35.1-43.9 [facility] [facility] Comment on above: Performed By: #### L 501.4020, L500.2500, L100.0100 ####[facility] [address] [place], [address] WBC (Bld) [#/Vol] 11.8 10*3/uL High 4.4-11.0 [facility] Comment on above: Performed By: #### L 501.4020, L500.2500, L100.0100 ####[facility] [address] [place], [address] CTA Chest W/WO Contraston CTA Chest W/WO Contrast Normal [facility] Carbon dioxide measurementOr dered By: Kemi Velez on 08-09-2024 CO2 [Moles/Vol] 22.0 mmol/L 21.0-32.0 [facility] Chest PA and Lateralon 08-09 Chest PA and Lateral Normal [facility] Chloride measurementOrdered By: Kemi Velez on 08-09-2024 Chloride [Moles/Vol] 109 mmol/L High 98-107 [facility] D-Dimer Quantitative (DVT/PE )on 08-09-2024 D-DIMER QUANT 1.22 FEU/ug/m Invalid Interpretation Code 0.27-0.49 [facility] Comment on above: Result Comment: D-Di riley ELEVATED (>0.49): Additional studies and clinicalassessments are indicated to conclude diagnosis of:Deep Vein Thrombosis (DVT) or Pulmonary Embolism (PE)CRITICAL VALUE CALLED TO ZENOBIA ISSAN110/10/23 1650 Geena Blackmon.RESULTS READ BACK BY SAME. Performed By: #### L 300.8000 ####[facility] [address] [place], [address] D-dimer measurement for deep venous thrombosisOrdered By: Kemi Velez on 08-09-2024 D-Dimer Quantitative (PE/DVT) 1.22 FEU/ug/m High 0.27-0.49 [facility] Comment on above: D-Dimer ELEVATED (>0 .49): Additional studies and clinicalassessments are indicated to conclude diagnosis of:Deep Vein Thrombosis (DVT) or Pulmonary Embolism (PE)CRITICAL VALUE CALLED TO ZENOBIA ISSAN110/10/23 1650 Geena Blackmon.RESULTS READ BACK BY SAME. Emergency Department Summary on 08-09-2024 Emergency Department Summary Normal [facility] Eosinophil percentageOrdered By: Kemi Velez on 08-09-2024 Eosinophils/100 WBC (Bld) 13.3 % High 0-5 [facility] Epithelial cells.squamous LM Ql (Urine sed)Ordered By: Julián Schrader on 08-09-2024 Epithelial cells.squamous LM.HPF (Urine sed) [#/Area] 0 /[HPF] 5-10 [facility] Erythrocyte distribution wid th ratioOrdered By: Kemi Velez on 08-09-2024 Erythrocyte distribution width (RBC) [Ratio] 13.6 % 11.6-14.6 [facility] Erythrocyte distribution wid th standard deviationOrdered By: Kemi Velez on 08-09-2024 Erythrocyte distribution width (RBC) [Entitic vol] 41.8 fL 35.1-43.9 [facility] Estimated glomerular filtrat ion rate (GFR) AmericanOrdered By: Kemi Velez on 08-09-2024 Estimated GFR (MDRD) Amer 153 mL/min >60 [facility] Comment on above: GFR Calc Estimation of creatinine taryn aranceOrdered By: Kemi Velez on 08-09-2024 Estimated Creatinine Clearance Calc 122.78 ml/min [facility] Glomerular filtration rate ( GFR) estimationOrdered By: Kemi Velez on 08-09-2024 Estimated GFR (MDRD) Non-Af Amer 126 mL/min >60 [facility] Comment on above: Non- GFR Calc Glucose Ql (U)Ordered By: Sebastian Schrader on 08-09-2024 Urine Glucose (UA) Normal mg/dl Normal [facility] Glucose measurementOrdered B y: Kemi Velez on 08-09-2024 Glucose [Mass/Vol] 109 mg/dL High 74-106 [facility] Comment on above: Fasting Glucose resu lt from 100 to 125 mg/dL suggests IMPAIRED HOMEOSTASIS per A.D.A. criteria. Hematocrit Auto (Bld) [Volum e fraction]Ordered By: Kemi Velez on 08-09-2024 Hematocrit (Bld) [Volume fraction] 34.9 % Low 37-47 [facility] Hemoglobin measurementOrdere d By: Kemi Velez on 08-09-2024 Hemoglobin (Bld) [Mass/Vol] 11.9 g/dL Low 12.0-15.0 [facility] Immature granulocytes/100 WB C Auto (Bld)Ordered By: Kemi Velez on 08-09-2024 Immature granulocytes/100 WBC (Bld) 0.600 % 0.0-0.9 [facility] Comment on above: IG% - Immature Granu locytes (promyelocytes, myelocytes and metamyelocytes) > 1% indicates that a LEFT SHIFT is Present. Influenza virus A and B and SARS-CoV-2 (COVID-19) and Respiratory syncytial virus RNAOrdered By: Kemi Velez on 08-09-2024 SARS-CoV-2 (COVID-19) RNA NICOLE+probe Ql (Unsp spec) [facility] Ketones Test strip Ql (U)Ord ered By: Julián Schrader on 08-09-2024 Ketones Ql (U) Negative Negative [facility] L501.4020on 08-09-2024 TROPONIN-I HS 4 pg/mL Normal 3.0-54.0 [facility] Comment on above: Order Comment: 'TROP ' Serial specimen #1, #2 or #3: 1 Result Comment: Plemerari liu Note: New Test Units and Gender Specific Reference Ranges. For more information see Policy Stat Procedure Adrian High Sensitivity Troponin (TNIH) and attachments. Performed By: #### L 501.4020, L500.2500, L100.0100 ####[facility] [address] [place], [address] Lymphocytes Auto (Unsp spec) [#/Vol]Ordered By: Kemi Velez on 08-09-2024 Lymphocytes (Bld) [#/Vol] 3.06 10*3/uL 0.83-4.51 [facility] Lymphocytes/100 WBC Auto (Un sp spec)Ordered By: Kemi Velez on 08-09-2024 Lymphocytes/100 WBC (Bld) 25.9 % 19-41 [facility] M100.678on 08-09-2024 M100.678 Pending SARS-CoV-2 (COVID 19) Negative INFLUENZA A Negative INFLUENZA B Negative RSV PCR Negative Normal [facility] Comment on above: Performed By: #### M 100.678 ####[facility] [address] [place], [address] MCV (mean corpuscular volume ) determinationOrdered By: Kemi Velez on 08-09-2024 MCV (RBC) [Entitic vol] 84.9 fL 81-99 [facility] Mean corpuscular hemoglobin (MCH) determinationOrdered By: Kemi Velez on 08-09-2024 MCH (RBC) [Entitic mass] 29.0 pg 27.0-32.0 [facility] Mean corpuscular hemoglobin concentration (MCHC) determinationOrdered By: Kemi Velez on 08-09-2024 MCHC (RBC) [Mass/Vol] 34.1 g/dL 32-36 [facility] Mean platelet volume determi nationOrdered By: Kemi Velez on 08-09-2024 Platelet mean volume (Bld) [Entitic vol] 9.8 fL 6.2-12.0 [facility] Microscopic analysis of urin e for red blood cells (RBC)Ordered By: Julián Schrader on 08-09-2024 Urine RBC 0 SEEN /hpf 0-5 [facility] Monocyte percentageOrdered B y: Kemi Velez on 08-09-2024 Monocytes/100 WBC (Bld) 6.5 % 0-10 [facility] Mucus LM Ql (Urine sed)Order ed By: Julián Schrader on 08-09-2024 Mucus Ql (Urine sed) 0 SEEN /hpf [facility] Neutrophil percentageOrdered By: Kemi Velez on 08-09-2024 Neutrophils/100 WBC (Bld) 53.3 % 47-70 [facility] Nitrite Test strip Ql (U)Ord ered By: Julián Schrader on 08-09-2024 Nitrite Ql (U) Negative Negative [facility] Nucleated red blood cell per centageOrdered By: Kemi Velez on 08-09-2024 Nucleated RBC/100 WBC (Bld) [Ratio] 0 % 0-5 [facility] Platelet countOrdered By: Kaylynn Velez on 08-09-2024 Platelets (Bld) [#/Vol] 353 10*3/uL 150-450 [facility] Potassium measurementOrdered By: Kemi Velez on 08-09-2024 Potassium [Moles/Vol] 3.5 mmol/L 3.5-5.1 [facility] Protein Test strip Ql (U)Ord ered By: Julián Schrader on 08-09-2024 Protein Ql (U) 15 mg/dl High Negative [facility] RBC Auto (Bld) [#/Vol]Ordere d By: Kemi Velez on 08-09-2024 RBC (Bld) [#/Vol] 4.11 10*6/uL Low 4.2-5.4 [facility] Serum anion gap measurementO rdered By: Kemi Velez on 08-09-2024 Anion gap [Moles/Vol] 9 mmol/L 5-15 [facility] Serum or plasma calcium pradip urement (mass/volume)Ordered By: Kemi Velez on 08-09-2024 Calcium [Mass/Vol] 9.2 mg/dL 8.5-10.1 [facility] Serum or plasma creatinine m easurement (mass/volume)Ordered By: Kemi Velez on 08-09-2024 Creatinine [Mass/Vol] 0.52 mg/dL Low 0.55-1.02 [facility] Comment on above: The validity of the calculated GFR & GFRAA in patients over 70 years has not been determined. Clinical correlation is essential. Serum or plasma urea nitroge n measurement (mass/volume)Ordered By: Kemi Velez on 08-09-2024 Urea nitrogen [Mass/Vol] 11 mg/dL 7-18 [facility] Sodium levelOrdered By: Daniel eastonseun Velez on 08-09-2024 Sodium [Moles/Vol] 140 mmol/L 136-145 [facility] Troponin IOrdered By: Deirdre Velez on 08-09-2024 Troponin I High Sensitivity 4 pg/mL 3.0-54.0 [facility] Comment on above: Please Note: New Evelyn t Units and Gender Specific Reference Ranges. For more information see Policy Stat Procedure Adrian High Sensitivity Troponin (TNIH) and attachments. Urinalysis, Completeon 08-09 EPI,SQUAMOUS 0-5 SEEN Normal 5-10 [facility] Comment on above: Order Comment: ISHMAEL CTOR TO SPECIFY Performed By: #### L 400.0001 ####[facility] [address] [place], [address] BACTERIA 0 SEEN Normal None Seen [facility] Comment on above: Order Comment: ISHMAEL CTOR TO SPECIFY Performed By: #### L 400.0001 ####[facility] [address] [place], [address] Mucus Ql (Urine sed) 0 SEEN Normal [facility] Comment on above: Order Comment: ISHMAEL CTOR TO SPECIFY Performed By: #### L 400.0001 ####[facility] [address] [place], [address] RBC 0 SEEN Normal 0-5 [facility] Comment on above: Order Comment: ISHMAEL CTOR TO SPECIFY Performed By: #### L 400.0001 ####[facility] [address] [place], [address] WBC 0 SEEN Normal 0-5 [facility] Comment on above: Order Comment: ISHMAEL CTOR TO SPECIFY Performed By: #### L 400.0001 ####[facility] [address] [place], [address] Urine blood detectionOrdered By: Julián Schrader on 08-09-2024 Urine Occult Blood Negative Negative [facility] Urine clarityOrdered By: Ramón Schrader on 08-09-2024 Clarity (U) Clear Clear [facility] Urine color determinationOrd ered By: Julián Schrader on 08-09-2024 Color (U) Yellow Yellow [facility] Urine leukocyte esterase det ection by dipstickOrdered By: Julián Schrader on 08-09-2024 Leukocyte esterase Test strip Ql (U) Negative Negative [facility] Urine pHOrdered By: Julián Connors on 08-09-2024 pH (U) 6.0 [pH] 5.0 - 8.0 [facility] Urine sediment bacteria coun t by microscopy (number/high power field)Ordered By: Julián Schrader on 08-09-2024 Bacteria LM.HPF (Urine sed) [#/Area] 0 /[HPF] None Seen [facility] Urine specific gravity measu rementOrdered By: Julián Schrader on 08-09-2024 Specific gravity (U) [Rel density] 1.010 1.002-1.030 [facility] Urobilinogen Ql (U)Ordered B y: Julián Schrader on 08-09-2024 Urine Urobilinogen Normal mg/dl Normal [facility] White blood cell (WBC) count Ordered By: Kemi Velez on 08-09-2024 WBC (Bld) [#/Vol] 11.8 10*3/uL High 4.4-11.0 [facility] White blood cell countOrdere d By: Julián Schrader on 08-09-2024 Urine WBC 0 SEEN /hpf 0-5 [facility] CNPTOUTREACHon 08-07-2024 CNPTOUTREACH Normal [facility] Culture, Blood (WB)on 2023 CUB Blood cultures x2, f rom two different sites No growth in 5 days. Normal [facility] Comment on above: Performed By: #### M 200.1000 ####[facility] [address] [place], [address] Abdomen/Pelvis W IV Cont ONL Yon 08-05-2024 Abdomen/Pelvis W IV Cont ONLY Normal [facility] Absolute neutrophil countOrd ered By: Lissette Guerin on 08-05-2024 Neutrophils (Bld) [#/Vol] 7.1 10*3/uL 2.0-7.7 [facility] Albumin to globulin ratioOrd ered By: Lissette Guerin on 08-05-2024 Albumin/Globulin [Mass ratio] 0.9 {ratio} 0.9-2.4 [facility] Basophil percentageOrdered B y: Lissette Guerin on 08-05-2024 Basophils/100 WBC (Bld) 0.4 % 0-1 [facility] Bedside Glucoseon 08-05-2024 FINGERSTICK GLU 189 mg/dL High 74-106 [facility] Comment on above: Result Comment: JAIME GEMENT OF PATIENT CARE PER NURSING PROTOCOL Performed By: #### L 501.080 ####[facility] [address] [place], [place], [address] FINGERSTICK GLU 154 mg/dL High 74-106 [facility] Comment on above: Result Comment: JAIME GEMENT OF PATIENT CARE PER NURSING PROTOCOL Performed By: #### L 501.080 ####[facility] [address] [place], [place], [address] Bilirubin Test strip Ql (U)O rdered By: Lissetteanand Guerin on 08-05-2024 Bilirubin Ql (U) Negative Negative [facility] Bilirubin, totalOrdered By: Lissette Apoorva on 08-05-2024 Bilirubin [Mass/Vol] 0.30 mg/dL 0.20-1.00 [facility] Comment on above: For patients on eltr ombopag therapy, use of Dimension Adrian TBIL is not recommended. Blood urea nitrogen (BUN)/cr eatinine ratioOrdered By: Lissette Apoorva on 08-05-2024 Urea nitrogen/Creatinine [Mass ratio] 21.8 mg/mg High 10-20 [facility] CBC W/Diff, Automatedon 07-11 Absolute Lymph 3.21 X10 3/uL Normal 0.83-4.51 [facility] Comment on above: Performed By: #### L 500.4050, L501.4020, L503.6005, L100.0100 ####[facility] [address] [place], [address] Absolute Neut 7.1 X10 3/uL Normal 2.0-7.7 [facility] Comment on above: Performed By: #### L 500.4050, L501.4020, L503.6005, L100.0100 ####[facility] [address] [place], [address] Basophils/100 WBC (Bld) 0.4 % Normal 0-1 [facility] Comment on above: Performed By: #### L 500.4050, L501.4020, L503.6005, L100.0100 ####[facility] [address] [place], [address] Eosinophils/100 WBC (Bld) 5.5 % High 0-5 [facility] Comment on above: Performed By: #### L 500.4050, L501.4020, L503.6005, L100.0100 ####[facility] [address] [place], [address] Erythrocyte distribution width (RBC) [Ratio] 13.2 % Normal 11.6-14.6 [facility] Comment on above: Performed By: #### L 500.4050, L501.4020, L503.6005, L100.0100 ####[facility] [address] [place], [address] Hematocrit (Bld) [Volume fraction] 35.9 % Low 37-47 [facility] Comment on above: Performed By: #### L 500.4050, L501.4020, L503.6005, L100.0100 ####[facility] [address] [place], [address] Hemoglobin (Bld) [Mass/Vol] 12.6 g/dL Normal 12.0-15.0 [facility] Comment on above: Performed By: #### L 500.4050, L501.4020, L503.6005, L100.0100 ####[facility] [address] [place], [address] IG% 0.400 Normal 0.0-0.9 [facility] Comment on above: Result Comment: IG% - Immature Granulocytes (promyelocytes, myelocytes andmetamyelocytes) > 1% indicates that a LEFT SHIFT is Present. Performed By: #### L 500.4050, L501.4020, L503.6005, L100.0100 ####[facility] [address] [place], [address] Lymphocytes/100 WBC (Bld) 27.2 % Normal 19-41 [facility] Comment on above: Performed By: #### L 500.4050, L501.4020, L503.6005, L100.0100 ####[facility] [address] [place], [address] MCH (RBC) [Entitic mass] 29.6 pg Normal 27.0-32.0 [facility] Comment on above: Performed By: #### L 500.4050, L501.4020, L503.6005, L100.0100 ####[facility] [address] [place], [address] MCHC (RBC) [Mass/Vol] 35.1 g/dL Normal 32-36 [facility] Comment on above: Performed By: #### L 500.4050, L501.4020, L503.6005, L100.0100 ####[facility] [address] [place], [address] MCV (RBC) [Entitic vol] 84.5 fL Normal 81-99 [facility] Comment on above: Performed By: #### L 500.4050, L501.4020, L503.6005, L100.0100 ####[facility] [address] [place], [address] Monocytes/100 WBC (Bld) 6.4 % Normal 0-10 [facility] Comment on above: Performed By: #### L 500.4050, L501.4020, L503.6005, L100.0100 ####[facility] [address] [place], [address] Neutrophils/100 WBC (Bld) 60.1 % Normal 47-70 [facility] Comment on above: Performed By: #### L 500.4050, L501.4020, L503.6005, L100.0100 ####[facility] [address] [place], [address] Nucleated RBC (Bld) [#/Vol] 0 10*3/uL Normal 0-5 [facility] Comment on above: Performed By: #### L 500.4050, L501.4020, L503.6005, L100.0100 ####[facility] [address] [place], [address] Platelet mean volume (Bld) [Entitic vol] 10.2 fL Normal 6.2-12.0 [facility] Comment on above: Performed By: #### L 500.4050, L501.4020, L503.6005, L100.0100 ####[facility] [address] [place], [address] Platelets (Bld) [#/Vol] 288 10*3/uL Normal 150-450 [facility] Comment on above: Performed By: #### L 500.4050, L501.4020, L503.6005, L100.0100 ####[facility] [address] [place], [address] RBC (Bld) [#/Vol] 4.25 10*6/uL Normal 4.2-5.4 [facility] Comment on above: Performed By: #### L 500.4050, L501.4020, L503.6005, L100.0100 ####[facility] [address] [place], [address] RDW SD 40.8 fl Normal 35.1-43.9 [facility] Comment on above: Performed By: #### L 500.4050, L501.4020, L503.6005, L100.0100 ####[facility] [address] [place], [address] WBC (Bld) [#/Vol] 11.8 10*3/uL High 4.4-11.0 [facility] Comment on above: Performed By: #### L 500.4050, L501.4020, L503.6005, L100.0100 ####[facility] [address] [place], [address] CTA Chest W/WO Contraston CTA Chest W/WO Contrast Normal [facility] Carbon dioxide measurementOr dered By: Lissette Guerin on 08-05-2024 CO2 [Moles/Vol] 23.0 mmol/L 21.0-32.0 [facility] Chloride measurementOrdered By: Lissette Guerin on 08-05-2024 Chloride [Moles/Vol] 107 mmol/L 98-107 [facility] Comprehensive Metabolic Prof ilon 08-05-2024 Albumin [Mass/Vol] 3.3 g/dL Normal 3.2-5.0 [facility] Comment on above: Order Comment: 'TROP ' Serial specimen #1, #2 or #3: 1 Performed By: #### L 500.4050, L501.4020, L503.6005, L100.0100 ####[facility] [address] [place], [address] Albumin/Globulin [Mass ratio] 0.9 {ratio} Normal 0.9-2.4 [facility] Comment on above: Order Comment: 'TROP ' Serial specimen #1, #2 or #3: 1 Performed By: #### L 500.4050, L501.4020, L503.6005, L100.0100 ####[facility] [address] [place], [address] ALK P 60 U/L Normal 45-117 [facility] Comment on above: Order Comment: 'TROP ' Serial specimen #1, #2 or #3: 1 Performed By: #### L 500.4050, L501.4020, L503.6005, L100.0100 ####[facility] [address] [place], [address] ALT [Catalytic activity/Vol] 16 U/L Normal 13-56 [facility] Comment on above: Order Comment: 'TROP ' Serial specimen #1, #2 or #3: 1 Performed By: #### L 500.4050, L501.4020, L503.6005, L100.0100 ####[facility] [address] [place], [address] AST [Catalytic activity/Vol] 19 U/L Normal 15-37 [facility] Comment on above: Order Comment: 'TROP ' Serial specimen #1, #2 or #3: 1 Performed By: #### L 500.4050, L501.4020, L503.6005, L100.0100 ####[facility] [address] [place], [address] Bilirubin [Mass/Vol] 0.30 mg/dL Normal 0.20-1.00 [facility] Comment on above: Order Comment: 'TROP ' Serial specimen #1, #2 or #3: 1 Result Comment: For patients on eltrombopag therapy, use of Dimension Adrian TBIL is not recommended. Performed By: #### L 500.4050, L501.4020, L503.6005, L100.0100 ####[facility] [address] [place], [address] BUN/CRE 21.8 RATIO High 10-20 [facility] Comment on above: Order Comment: 'TROP ' Serial specimen #1, #2 or #3: 1 Performed By: #### L 500.4050, L501.4020, L503.6005, L100.0100 ####[facility] [address] [place], [address] CA,Total 8.5 mg/dL Normal 8.5-10.1 [facility] Comment on above: Order Comment: 'TROP ' Serial specimen #1, #2 or #3: 1 Performed By: #### L 500.4050, L501.4020, L503.6005, L100.0100 ####[facility] [address] [place], [address] Chloride [Moles/Vol] 107 mmol/L Normal 98-107 [facility] Comment on above: Order Comment: 'TROP ' Serial specimen #1, #2 or #3: 1 Performed By: #### L 500.4050, L501.4020, L503.6005, L100.0100 ####[facility] [address] [place], [address] CO2 [Moles/Vol] 23.0 mmol/L Normal 21.0-32.0 [facility] Comment on above: Order Comment: 'TROP ' Serial specimen #1, #2 or #3: 1 Performed By: #### L 500.4050, L501.4020, L503.6005, L100.0100 ####[facility] [address] [place], [address] Creatinine [Mass/Vol] 0.60 mg/dL Normal 0.55-1.02 [facility] Comment on above: Order Comment: 'TROP ' Serial specimen #1, #2 or #3: 1 Result Comment: The validity of the calculated GFR GFRAA in patients over70 years has not been determined. Clinical correlation isessential. Performed By: #### L 500.4050, L501.4020, L503.6005, L100.0100 ####[facility] [address] [place], [address] ECRCL 103.39 ml/min Normal [facility] Comment on above: Order Comment: 'TROP ' Serial specimen #1, #2 or #3: 1 Performed By: #### L 500.4050, L501.4020, L503.6005, L100.0100 ####[facility] [address] [place], [address] EST GFR - AA 130 mL/min Normal >60 [facility] Comment on above: Order Comment: 'TROP ' Serial specimen #1, #2 or #3: 1 Result Comment: Afri can Libyan GFR Calc Performed By: #### L 500.4050, L501.4020, L503.6005, L100.0100 ####[facility] [address] [place], [address] GAP 8 Normal 5-15 [facility] Comment on above: Order Comment: 'TROP ' Serial specimen #1, #2 or #3: 1 Performed By: #### L 500.4050, L501.4020, L503.6005, L100.0100 ####[facility] [address] [place], [address] GFR/1.73 sq M.predicted among non-blacks MDRD (S/P/Bld) [Vol rate/Area] 108 mL/min/{1.73_m2} Normal >60 [facility] Comment on above: Order Comment: 'TROP ' Serial specimen #1, #2 or #3: 1 Result Comment: Non- GFR Calc Performed By: #### L 500.4050, L501.4020, L503.6005, L100.0100 ####[facility] [address] [place], [address] Globulin (S) [Mass/Vol] 3.7 g/dL Normal 2.2-4.2 [facility] Comment on above: Order Comment: 'TROP ' Serial specimen #1, #2 or #3: 1 Performed By: #### L 500.4050, L501.4020, L503.6005, L100.0100 ####[facility] [address] [place], [address] Glucose [Mass/Vol] 146 mg/dL High 74-106 [facility] Comment on above: Order Comment: 'TROP ' Serial specimen #1, #2 or #3: 1 Result Comment: Fast ing Glucose result greater than or equal to 126 mg/dLsuggests DIABETES MELLITUS per A.D.A. criteria. Performed By: #### L 500.4050, L501.4020, L503.6005, L100.0100 ####[facility] [address] [place], [address] Potassium [Moles/Vol] 3.3 mmol/L Low 3.5-5.1 [facility] Comment on above: Order Comment: 'TROP ' Serial specimen #1, #2 or #3: 1 Performed By: #### L 500.4050, L501.4020, L503.6005, L100.0100 ####[facility] [address] [place], [address] Sodium [Moles/Vol] 138 mmol/L Normal 136-145 [facility] Comment on above: Order Comment: 'TROP ' Serial specimen #1, #2 or #3: 1 Performed By: #### L 500.4050, L501.4020, L503.6005, L100.0100 ####[facility] [address] [place], [address] T PROT 7.0 g/dL Normal 6.4-8.2 [facility] Comment on above: Order Comment: 'TROP ' Serial specimen #1, #2 or #3: 1 Performed By: #### L 500.4050, L501.4020, L503.6005, L100.0100 ####[facility] [address] [place], [address] Urea nitrogen [Mass/Vol] 13 mg/dL Normal 7-18 [facility] Comment on above: Order Comment: 'TROP ' Serial specimen #1, #2 or #3: 1 Performed By: #### L 500.4050, L501.4020, L503.6005, L100.0100 ####[facility] [address] [place], [place], [address] Discharge Instructionon 07-11 Discharge Instruction Normal [facility] Emergency Department Summary on 08-05-2024 Emergency Department Summary Normal [facility] Eosinophil percentageOrdered By: Lissette Guerin on 08-05-2024 Eosinophils/100 WBC (Bld) 5.5 % High 0-5 [facility] Epithelial cells.squamous LM Ql (Urine sed)Ordered By: Lissette Guerin on 08-05-2024 Epithelial cells.squamous LM.HPF (Urine sed) [#/Area] 0 /[HPF] 5-10 [facility] Erythrocyte distribution wid th ratioOrdered By: Lissette Guerin on 08-05-2024 Erythrocyte distribution width (RBC) [Ratio] 13.2 % 11.6-14.6 [facility] Erythrocyte distribution wid th standard deviationOrdered By: Lissette Guerin on 08-05-2024 Erythrocyte distribution width (RBC) [Entitic vol] 40.8 fL 35.1-43.9 [facility] Estimated glomerular filtrat ion rate (GFR) AmericanOrdered By: Lissette Guerin on 08-05-2024 Estimated GFR (MDRD) Amer 130 mL/min >60 [facility] Comment on above: GFR Calc Estimation of creatinine taryn aranceOrdered By: Lissette Guerin on 08-05-2024 Estimated Creatinine Clearance Calc 103.39 ml/min [facility] Glomerular filtration rate ( GFR) estimationOrdered By: Lissette Guerin on 08-05-2024 Estimated GFR (MDRD) Non-Af Amer 108 mL/min >60 [facility] Comment on above: Non- GFR Calc Glucose Ql (U)Ordered By: Fadi Guerin on 08-05-2024 Urine Glucose (UA) Normal mg/dl Normal [facility] Glucose measurementOrdered B y: Lissette Guerin on 08-05-2024 Glucose [Mass/Vol] 146 mg/dL High 74-106 [facility] Comment on above: Fasting Glucose resu lt greater than or equal to 126 mg/dL suggests DIABETES MELLITUS per A.D.A. criteria. [facility] deOrdered By: Neal Dunaway on 08-05-2024 Bedside Glucose (Misc Panel) 189 mg/dL High 74-106 [facility] Comment on above: MANAGEMENT OF PATIEN T CARE PER NURSING PROTOCOL Hematocrit Auto (Bld) [Volum e fraction]Ordered By: Lissette Guerin on 08-05-2024 Hematocrit (Bld) [Volume fraction] 35.9 % Low 37-47 [facility] Hemoglobin measurementOrdere d By: Lissette Guerin on 08-05-2024 Hemoglobin (Bld) [Mass/Vol] 12.6 g/dL 12.0-15.0 [facility] Immature granulocytes/100 WB C Auto (Bld)Ordered By: Lissette Guerin on 08-05-2024 Immature granulocytes/100 WBC (Bld) 0.400 % 0.0-0.9 [facility] Comment on above: IG% - Immature Granu locytes (promyelocytes, myelocytes and metamyelocytes) > 1% indicates that a LEFT SHIFT is Present. Ketones Test strip Ql (U)Ord ered By: Lissette Guerin on 08-05-2024 Ketones Ql (U) Negative Negative [facility] L501.4020on 08-05-2024 TROPONIN-I HS 3 pg/mL Normal 3.0-54.0 [facility] Comment on above: Order Comment: 'TROP ' Serial specimen #1, #2 or #3: 1 Result Comment: Melissa liu Note: New Test Units and Gender Specific Reference Ranges. For more information see Policy Stat Procedure Adrian High Sensitivity Troponin (TNIH) and attachments. Performed By: #### L 500.4050, L501.4020, L503.6005, L100.0100 ####[facility] [address] [place], [address] Laboratory - Chemistry and C hemistry - challengeOrdered By: Lissette Guerin on 08-05-2024 AST [Catalytic activity/Vol] 19 U/L 15-37 [facility] Lactic Acidon 08-05-2024 Lactate [Moles/Vol] 0.9 mmol/L Normal 0.4-1.9 [facility] Comment on above: Order Comment: Y Performed By: #### L 500.4050, L501.4020, L503.6005, L100.0100 ####[facility] [address] [place], [place], [id number] Lactic acid measurementOrder ed By: Lissette Guerin on 08-05-2024 Lactate [Moles/Vol] 0.9 mmol/L 0.4-2.0 [facility] Lymphocytes Auto (Unsp spec) [#/Vol]Ordered By: Lissette Guerin on 08-05-2024 Lymphocytes (Bld) [#/Vol] 3.21 10*3/uL 0.83-4.51 [facility] Lymphocytes/100 WBC Auto (Un sp spec)Ordered By: Lissette Guerin on 08-05-2024 Lymphocytes/100 WBC (Bld) 27.2 % 19-41 [facility] MCV (mean corpuscular volume ) determinationOrdered By: Lissette Guerin on 08-05-2024 MCV (RBC) [Entitic vol] 84.5 fL 81-99 [facility] Mean corpuscular hemoglobin (MCH) determinationOrdered By: Lissette Guerin on 08-05-2024 MCH (RBC) [Entitic mass] 29.6 pg 27.0-32.0 [facility] Mean corpuscular hemoglobin concentration (MCHC) determinationOrdered By: Lissette Guerin on 08-05-2024 MCHC (RBC) [Mass/Vol] 35.1 g/dL 32-36 [facility] Mean platelet volume determi nationOrdered By: Lissette Guerin on 08-05-2024 Platelet mean volume (Bld) [Entitic vol] 10.2 fL 6.2-12.0 [facility] Microscopic analysis of urin e for red blood cells (RBC)Ordered By: Lissette Guerin on 08-05-2024 Urine RBC 0-5 SEEN /hpf 0-5 [facility] Monocyte percentageOrdered B y: Lissette Guerin on 08-05-2024 Monocytes/100 WBC (Bld) 6.4 % 0-10 [facility] Mucus LM Ql (Urine sed)Order ed By: Lissette Guerin on 08-05-2024 Mucus Ql (Urine sed) RARE /hpf [facility] Neutrophil percentageOrdered By: Lissette Guerin on 08-05-2024 Neutrophils/100 WBC (Bld) 60.1 % 47-70 [facility] Nitrite Test strip Ql (U)Ord ered By: Lissette Guerin on 08-05-2024 Nitrite Ql (U) Negative Negative [facility] Nucleated red blood cell per centageOrdered By: Lissette Guerin on 08-05-2024 Nucleated RBC/100 WBC (Bld) [Ratio] 0 % 0-5 [facility] Platelet countOrdered By: Fadi Guerin on 08-05-2024 Platelets (Bld) [#/Vol] 288 10*3/uL 150-450 [facility] Potassium measurementOrdered By: Lissette Guerin on 08-05-2024 Potassium [Moles/Vol] 3.3 mmol/L Low 3.5-5.1 [facility] Protein Test strip Ql (U)Ord ered By: Lissette Guerin on 08-05-2024 Protein Ql (U) 15 mg/dl High Negative [facility] RBC Auto (Bld) [#/Vol]Ordere d By: Lissette Guerin on 08-05-2024 RBC (Bld) [#/Vol] 4.25 10*6/uL 4.2-5.4 [facility] Respiratory Cultureon 2023 RESPC List Antibiotics Las t 48 Hours? macrobid List Antibiotics to be Started? none Mixed normal respiratory bill. No Haemophilus, Streptococcus pneumoniae, beta-hemolytic Streptococcus or Staphylococcus aureus isolated. Normal [facility] Comment on above: Performed By: #### M 100.2400, M100.1999 ####[facility] [address] [place], [address] Serum anion gap measurementO rdered By: Lissette Guerin on 08-05-2024 Anion gap [Moles/Vol] 8 mmol/L 5-15 [facility] Serum globulin measurementOr dered By: Lissette Guerin on 08-05-2024 Globulin (S) [Mass/Vol] 3.7 g/dL 2.2-4.2 [facility] Serum or plasma alanine ji otransferase (ALT) measurementOrdered By: Lissette Guerin on 08-05-2024 ALT [Catalytic activity/Vol] 16 U/L 13-56 [facility] Serum or plasma albumin pradip urement (mass/volume)Ordered By: Lissette Guerin on 08-05-2024 Albumin [Mass/Vol] 3.3 g/dL 3.2-5.0 [facility] Serum or plasma alkaline dolly sphatase measurementOrdered By: Lissette Guerin on 08-05-2024 ALP [Catalytic activity/Vol] 60 U/L 45-117 [facility] Serum or plasma calcium pradip urement (mass/volume)Ordered By: Lissette Guerin on 08-05-2024 Calcium [Mass/Vol] 8.5 mg/dL 8.5-10.1 [facility] Serum or plasma creatinine m easurement (mass/volume)Ordered By: Lissette Guerin on 08-05-2024 Creatinine [Mass/Vol] 0.60 mg/dL 0.55-1.02 [facility] Comment on above: The validity of the calculated GFR & GFRAA in patients over 70 years has not been determined. Clinical correlation is essential. Serum or plasma urea nitroge n measurement (mass/volume)Ordered By: Lissette Guerin on 08-05-2024 Urea nitrogen [Mass/Vol] 13 mg/dL 7-18 [facility] Sodium levelOrdered By: Nick Guerin on 08-05-2024 Sodium [Moles/Vol] 138 mmol/L 136-145 [facility] Total proteinOrdered By: Angela stewarty Apoorva on 08-05-2024 Protein [Mass/Vol] 7.0 g/dL 6.4-8.2 [facility] Troponin IOrdered By: Lissette Guerin on 08-05-2024 Troponin I High Sensitivity 3 pg/mL 3.0-54.0 [facility] Comment on above: Please Note: New Evelyn t Units and Gender Specific Reference Ranges. For more information see Policy Stat Procedure Adrian High Sensitivity Troponin (TNIH) and attachments. Urinalysis, Completeon 08-05 Mucus Ql (Urine sed) RARE Normal [facility] Comment on above: Order Comment: CLEAN CATCH Performed By: #### L 400.0001 ####[facility] [address] [place], [address] EPI,SQUAMOUS 0-5 SEEN Normal 5-10 [facility] Comment on above: Order Comment: CLEAN CATCH Performed By: #### L 400.0001 ####[facility] [address] [place], [address] RBC 0-5 SEEN Normal 0-5 [facility] Comment on above: Order Comment: CLEAN CATCH Performed By: #### L 400.0001 ####[facility] [address] [place], [address] BACTERIA 0 SEEN Normal None Seen [facility] Comment on above: Order Comment: CLEAN CATCH Performed By: #### L 400.0001 ####[facility] [address] [place], [address] WBC 0 SEEN Normal 0-5 [facility] Comment on above: Order Comment: CLEAN CATCH Performed By: #### L 400.0001 ####[facility] [address] [place], [address] Urine blood detectionOrdered By: Lissette Guerin on 08-05-2024 Urine Occult Blood 25 /ul High Negative [facility] Urine clarityOrdered By: Angela Guerin on 08-05-2024 Clarity (U) Clear Clear [facility] Urine color determinationOrd ered By: Lissette Guerin on 08-05-2024 Color (U) Yellow Yellow [facility] Urine leukocyte esterase det ection by dipstickOrdered By: Lissette Guerin on 08-05-2024 Leukocyte esterase Test strip Ql (U) Negative Negative [facility] Urine pHOrdered By: Lissette chew on 08-05-2024 pH (U) 6.0 [pH] 5.0 - 8.0 [facility] Urine sediment bacteria coun t by microscopy (number/high power field)Ordered By: Lissette Guerin on 08-05-2024 Bacteria LM.HPF (Urine sed) [#/Area] 0 /[HPF] None Seen [facility] Urine specific gravity measu rementOrdered By: Lissette Guerin on 08-05-2024 Specific gravity (U) [Rel density] 1.015 1.002-1.030 [facility] Urobilinogen Ql (U)Ordered B y: Lissette Guerin on 08-05-2024 Urobilinogen (U) [Mass/Vol] 1 mg/dL High Normal [facility] White blood cell (WBC) count Ordered By: Lissette Guerin on 08-05-2024 WBC (Bld) [#/Vol] 11.8 10*3/uL High 4.4-11.0 [facility] White blood cell countOrdere d By: Lissette Guerin on 08-05-2024 Urine WBC 0 SEEN /hpf 0-5 [facility] Absolute neutrophil countOrd ered By: Neal Dunaway on 08-04-2024 Neutrophils (Bld) [#/Vol] 2.7 10*3/uL 2.0-7.7 [facility] Basic Metabolic Profile (BMP )on 08-04-2024 BUN/CRE 16.0 RATIO Normal 10-20 [facility] Comment on above: Performed By: #### L 500.2500, L100.0100 ####[facility] [address] [place], [address] CA,Total 8.3 mg/dL Low 8.5-10.1 [facility] Comment on above: Performed By: #### L 500.2500, L100.0100 ####[facility] [address] [place], [address] Chloride [Moles/Vol] 112 mmol/L High 98-107 [facility] Comment on above: Performed By: #### L 500.2500, L100.0100 ####[facility] [address] [place], [address] CO2 [Moles/Vol] 23.0 mmol/L Normal 21.0-32.0 [facility] Comment on above: Performed By: #### L 500.2500, L100.0100 ####[facility] [address] [place], [address] Creatinine [Mass/Vol] 0.50 mg/dL Low 0.55-1.02 [facility] Comment on above: Result Comment: The validity of the calculated GFR GFRAA in patients over70 years has not been determined. Clinical correlation isessential. Performed By: #### L 500.2500, L100.0100 ####[facility] [address] [place], [address] ECRCL 130.24 ml/min Normal [facility] Comment on above: Performed By: #### L 500.2500, L100.0100 ####[facility] [address] [place], [address] EST GFR - AA 159 mL/min Normal >60 [facility] Comment on above: Result Comment: Afri can Libyan GFR Calc Performed By: #### L 500.2500, L100.0100 ####[facility] [address] [place], [address] GAP 5 Normal 5-15 [facility] Comment on above: Performed By: #### L 500.2500, L100.0100 ####[facility] [address] [place], [address] GFR/1.73 sq M.predicted among non-blacks MDRD (S/P/Bld) [Vol rate/Area] 132 mL/min/{1.73_m2} Normal >60 [facility] Comment on above: Result Comment: Non- GFR Calc Performed By: #### L 500.2500, L100.0100 ####[facility] [address] [place], [address] Glucose [Mass/Vol] 164 mg/dL High 74-106 [facility] Comment on above: Result Comment: Fast ing Glucose result greater than or equal to 126 mg/dLsuggests DIABETES MELLITUS per A.D.A. criteria. Performed By: #### L 500.2500, L100.0100 ####[facility] [address] [place], [address] Potassium [Moles/Vol] 3.6 mmol/L Normal 3.5-5.1 [facility] Comment on above: Performed By: #### L 500.2500, L100.0100 ####[facility] [address] [place], [address] Sodium [Moles/Vol] 140 mmol/L Normal 136-145 [facility] Comment on above: Performed By: #### L 500.2500, L100.0100 ####[facility] [address] [place], [address] Urea nitrogen [Mass/Vol] 8 mg/dL Normal 7-18 [facility] Comment on above: Performed By: #### L 500.2500, L100.0100 ####[facility] [address] [place], [address] Basophil percentageOrdered B y: Neal Dunaway on 08-04-2024 Basophils/100 WBC (Bld) 0.3 % 0-1 [facility] Bedside Glucoseon 08-04-2024 FINGERSTICK GLU 157 mg/dL High 74-106 [facility] Comment on above: Result Comment: JAIME GEMENT OF PATIENT CARE PER NURSING PROTOCOL Performed By: #### L 501.080 ####[facility] [address] [place], [address] FINGERSTICK GLU 151 mg/dL High 74-106 [facility] Comment on above: Result Comment: JAIME GEMENT OF PATIENT CARE PER NURSING PROTOCOL Performed By: #### L 501.080 ####[facility] [address] [place], [address] FINGERSTICK GLU 207 mg/dL High 74-106 [facility] Comment on above: Result Comment: JAIME GEMENT OF PATIENT CARE PER NURSING PROTOCOL Performed By: #### L 501.080 ####[facility] [address] [place], [address] FINGERSTICK GLU 142 mg/dL High [facility]106 [facility] Comment on above: Result Comment: JAIME GEMENT OF PATIENT CARE PER NURSING PROTOCOL Performed By: #### L 501.080 ####[facility] [address] [place], [address] Blood urea nitrogen (BUN)/cr eatinine ratioOrdered By: Neal Dunaway on 08-04-2024 Urea nitrogen/Creatinine [Mass ratio] 16.0 mg/mg - [facility] CBC W/Diff, Automatedon 07-11 Absolute Lymph 2.71 X10 3/uL Normal 0.83-4.51 [facility] Comment on above: Performed By: #### L 500.2500, L100.0100 ####[facility] [address] [place], [address] Absolute Neut 2.7 X10 3/uL Normal 2.0-7.7 [facility] Comment on above: Performed By: #### L 500.2500, L100.0100 ####[facility] [address] [place], [address] Basophils/100 WBC (Bld) 0.3 % Normal 0-1 [facility] Comment on above: Performed By: #### L 500.2500, L100.0100 ####[facility] [address] [place], [address] Eosinophils/100 WBC (Bld) 5.9 % High 0-5 [facility] Comment on above: Performed By: #### L 500.2500, L100.0100 ####[facility] [address] [place], [address] Erythrocyte distribution width (RBC) [Ratio] 13.2 % Normal 11.6-14.6 [facility] Comment on above: Performed By: #### L 500.2500, L100.0100 ####[facility] [address] [place], [address] Hematocrit (Bld) [Volume fraction] 36.0 % Low 37-47 [facility] Comment on above: Performed By: #### L 500.2500, L100.0100 ####[facility] [address] [place], [address] Hemoglobin (Bld) [Mass/Vol] 12.3 g/dL Normal 12.0-15.0 [facility] Comment on above: Performed By: #### L 500.2500, L100.0100 ####[facility] [address] [place], [address] IG% 0.300 Normal 0.0-0.9 [facility] Comment on above: Result Comment: IG% - Immature Granulocytes (promyelocytes, myelocytes andmetamyelocytes) > 1% indicates that a LEFT SHIFT is Present. Performed By: #### L 500.2500, L100.0100 ####[facility] [address] [place], [address] Lymphocytes/100 WBC (Bld) 43.6 % High 19-41 [facility] Comment on above: Performed By: #### L 500.2500, L100.0100 ####[facility] [address] [place], [address] MCH (RBC) [Entitic mass] 29.3 pg Normal 27.0-32.0 [facility] Comment on above: Performed By: #### L 500.2500, L100.0100 ####[facility] [address] [place], [address] MCHC (RBC) [Mass/Vol] 34.2 g/dL Normal 32-36 [facility] Comment on above: Performed By: #### L 500.2500, L100.0100 ####[facility] [address] [place], [address] MCV (RBC) [Entitic vol] 85.7 fL Normal 81-99 [facility] Comment on above: Performed By: #### L 500.2500, L100.0100 ####[facility] [address] [place], [address] Monocytes/100 WBC (Bld) 6.3 % Normal 0-10 [facility] Comment on above: Performed By: #### L 500.2500, L100.0100 ####[facility] [address] [place], [address] Neutrophils/100 WBC (Bld) 43.6 % Low 47-70 [facility] Comment on above: Performed By: #### L 500.2500, L100.0100 ####[facility] [address] [place], [address] Nucleated RBC (Bld) [#/Vol] 0 10*3/uL Normal 0-5 [facility] Comment on above: Performed By: #### L 500.2500, L100.0100 ####[facility] [address] [place], [address] Platelet mean volume (Bld) [Entitic vol] 10.4 fL Normal 6.2-12.0 [facility] Comment on above: Performed By: #### L 500.2500, L100.0100 ####[facility] [address] [place], [address] Platelets (Bld) [#/Vol] 251 10*3/uL Normal 150-450 [facility] Comment on above: Performed By: #### L 500.2500, L100.0100 ####[facility] [address] [place], [address] RBC (Bld) [#/Vol] 4.20 10*6/uL Normal 4.2-5.4 [facility] Comment on above: Performed By: #### L 500.2500, L100.0100 ####[facility] [address] [place], [address] RDW SD 41.1 fl Normal 35.1-43.9 [facility] Comment on above: Performed By: #### L 500.2500, L100.0100 ####[facility] [address] [place], [address] WBC (Bld) [#/Vol] 6.2 10*3/uL Normal 4.4-11.0 [facility] Comment on above: Performed By: #### L 500.2500, L100.0100 ####[facility] [address] [place], [address] CNPNon 08-04-2024 CNPN Normal [facility] Carbon dioxide measurementOr dered By: Neal Dunaway on 08-04-2024 CO2 [Moles/Vol] 23.0 mmol/L 21.0-32.0 [facility] Chloride measurementOrdered By: Neal Dunaway on 08-04-2024 Chloride [Moles/Vol] 112 mmol/L High 98-107 [facility] Eosinophil percentageOrdered By: Neal Dunaway on 08-04-2024 Eosinophils/100 WBC (Bld) 5.9 % High 0-5 [facility] Erythrocyte distribution wid th ratioOrdered By: Neal Dunaway on 08-04-2024 Erythrocyte distribution width (RBC) [Ratio] 13.2 % 11.6-14.6 [facility] Erythrocyte distribution wid th standard deviationOrdered By: Neal Dunaway on 08-04-2024 Erythrocyte distribution width (RBC) [Entitic vol] 41.1 fL 35.1-43.9 [facility] Estimated glomerular filtrat ion rate (GFR) AmericanOrdered By: Neal Dunaway on 08-04-2024 Estimated GFR (MDRD) Amer 159 mL/min >60 [facility] Comment on above: GFR Calc Estimation of creatinine taryn aranceOrdered By: Neal Dunaway on 08-04-2024 Estimated Creatinine Clearance Calc 130.24 ml/min [facility] Glomerular filtration rate ( GFR) estimationOrdered By: Neal Dunaway on 08-04-2024 Estimated GFR (MDRD) Non-Af Amer 132 mL/min >60 [facility] Comment on above: Non- GFR Calc Glucose measurementOrdered B y: Neal Dunaway on 08-04-2024 Glucose [Mass/Vol] 164 mg/dL High 74-106 [facility] Comment on above: Fasting Glucose resu lt greater than or equal to 126 mg/dL suggests DIABETES MELLITUS per A.D.A. criteria. Hematocrit Auto (Bld) [Volum e fraction]Ordered By: Neal Dunaway on 08-04-2024 Hematocrit (Bld) [Volume fraction] 36.0 % Low 37-47 [facility] Hemoglobin measurementOrdere d By: Neal Dunaway on 08-04-2024 Hemoglobin (Bld) [Mass/Vol] 12.3 g/dL 12.0-15.0 [facility] Immature granulocytes/100 WB C Auto (Bld)Ordered By: Neal Dunaway on 08-04-2024 Immature granulocytes/100 WBC (Bld) 0.300 % 0.0-0.9 [facility] Comment on above: IG% - Immature Granu locytes (promyelocytes, myelocytes and metamyelocytes) > 1% indicates that a LEFT SHIFT is Present. Lymphocytes Auto (Unsp spec) [#/Vol]Ordered By: Neal Dunaway on 08-04-2024 Lymphocytes (Bld) [#/Vol] 2.71 10*3/uL 0.83-4.51 [facility] Lymphocytes/100 WBC Auto (Un sp spec)Ordered By: Neal Dunaway on 08-04-2024 Lymphocytes/100 WBC (Bld) 43.6 % High 19-41 [facility] MCV (mean corpuscular volume ) determinationOrdered By: Neal Dunaway on 08-04-2024 MCV (RBC) [Entitic vol] 85.7 fL 81-99 [facility] Mean corpuscular hemoglobin (MCH) determinationOrdered By: Neal Dunaway on 08-04-2024 MCH (RBC) [Entitic mass] 29.3 pg 27.0-32.0 [facility] Mean corpuscular hemoglobin concentration (MCHC) determinationOrdered By: Neal Dunaway on 08-04-2024 MCHC (RBC) [Mass/Vol] 34.2 g/dL 32-36 [facility] Mean platelet volume determi nationOrdered By: Neal Dunaway on 08-04-2024 Platelet mean volume (Bld) [Entitic vol] 10.4 fL 6.2-12.0 [facility] Monocyte percentageOrdered B y: Neal Dunaway on 08-04-2024 Monocytes/100 WBC (Bld) 6.3 % 0-10 [facility] Neutrophil percentageOrdered By: Neal Dunaway on 08-04-2024 Neutrophils/100 WBC (Bld) 43.6 % Low 47-70 [facility] Nucleated red blood cell per centageOrdered By: Neal Dunaway on 08-04-2024 Nucleated RBC/100 WBC (Bld) [Ratio] 0 % 0-5 [facility] Platelet countOrdered By: Kaylynn Dunaway on 08-04-2024 Platelets (Bld) [#/Vol] 251 10*3/uL 150-450 [facility] Potassium measurementOrdered By: Neal Dunaway on 08-04-2024 Potassium [Moles/Vol] 3.6 mmol/L 3.5-5.1 [facility] RBC Auto (Bld) [#/Vol]Ordere d By: Neal Dunaway on 08-04-2024 RBC (Bld) [#/Vol] 4.20 10*6/uL 4.2-5.4 [facility] Serum anion gap measurementO rdered By: Neal Dunaway on 08-04-2024 Anion gap [Moles/Vol] 5 mmol/L 5- [facility] Serum or plasma calcium pradip urement (mass/volume)Ordered By: Neal Dunaway on 08-04-2024 Calcium [Mass/Vol] 8.3 mg/dL Low 8.5-10.1 [facility] Serum or plasma creatinine m easurement (mass/volume)Ordered By: Neal Dunaway on 08-04-2024 Creatinine [Mass/Vol] 0.50 mg/dL Low 0.55-1.02 [facility] Comment on above: The validity of the calculated GFR & GFRAA in patients over 70 years has not been determined. Clinical correlation is essential. Serum or plasma urea nitroge n measurement (mass/volume)Ordered By: Neal Dunaway on 08-04-2024 Urea nitrogen [Mass/Vol] 8 mg/dL - [facility] Sodium levelOrdered By: Parvez Dunaway on 08-04-2024 Sodium [Moles/Vol] 140 mmol/L 136-145 [facility] White blood cell (WBC) count Ordered By: Neal Dunaway on 08-04-2024 WBC (Bld) [#/Vol] 6.2 10*3/uL 4.4-11.0 [facility] Basic Metabolic Profile (BMP )on 08-03-2024 BUN/CRE 23.6 RATIO High 10-20 [facility] Comment on above: Performed By: #### L 500.2500, L100.0100 ####[facility] [address] [place], [address] CA,Total 8.2 mg/dL Low 8.5-10.1 [facility] Comment on above: Performed By: #### L 500.2500, L100.0100 ####[facility] [address] [place], [address] Chloride [Moles/Vol] 112 mmol/L High 98-107 [facility] Comment on above: Performed By: #### L 500.2500, L100.0100 ####[facility] [address] [place], [address] CO2 [Moles/Vol] 24.0 mmol/L Normal 21.0-32.0 [facility] Comment on above: Performed By: #### L 500.2500, L100.0100 ####[facility] [address] [place], [address] Creatinine [Mass/Vol] 0.59 mg/dL Normal 0.55-1.02 [facility] Comment on above: Result Comment: The validity of the calculated GFR GFRAA in patients over70 years has not been determined. Clinical correlation isessential. Performed By: #### L 500.2500, L100.0100 ####[facility] [address] [place], [address] ECRCL 110.31 ml/min Normal [facility] Comment on above: Performed By: #### L 500.2500, L100.0100 ####[facility] [address] [place], [address] EST GFR - AA 131 mL/min Normal >60 [facility] Comment on above: Result Comment: Afri can Libyan GFR Calc Performed By: #### L 500.2500, L100.0100 ####[facility] [address] [place], [address] GAP 5 Normal 5-15 [facility] Comment on above: Performed By: #### L 500.2500, L100.0100 ####[facility] [address] [place], [address] GFR/1.73 sq M.predicted among non-blacks MDRD (S/P/Bld) [Vol rate/Area] 109 mL/min/{1.73_m2} Normal >60 [facility] Comment on above: Result Comment: Non- GFR Calc Performed By: #### L 500.2500, L100.0100 ####[facility] [address] [place], [address] Glucose [Mass/Vol] 168 mg/dL High 74-106 [facility] Comment on above: Result Comment: Fast ing Glucose result greater than or equal to 126 mg/dLsuggests DIABETES MELLITUS per A.D.A. criteria. Performed By: #### L 500.2500, L100.0100 ####[facility] [address] [place], [address] Potassium [Moles/Vol] 3.4 mmol/L Low 3.5-5.1 [facility] Comment on above: Performed By: #### L 500.2500, L100.0100 ####[facility] [address] [place], [address] Sodium [Moles/Vol] 141 mmol/L Normal 136-145 [facility] Comment on above: Performed By: #### L 500.2500, L100.0100 ####[facility] [address] [place], [address] Urea nitrogen [Mass/Vol] 14 mg/dL Normal 7-18 [facility] Comment on above: Performed By: #### L 500.2500, L100.0100 ####[facility] [address] [place], [address] Bedside Glucoseon 08-03-2024 FINGERSTICK GLU 202 mg/dL High [facility]106 [facility] Comment on above: Result Comment: JAIME GEMENT OF PATIENT CARE PER NURSING PROTOCOL Performed By: #### L 501.080 ####[facility] [address] [place], [address] FINGERSTICK GLU 190 mg/dL High [address] [place] [address] Comment on above: Result Comment: JAIME GEMENT OF PATIENT CARE PER NURSING PROTOCOL Performed By: #### L 501.080 ####[facility] [address] [place], [address] FINGERSTICK GLU 283 mg/dL High [address] [place] [address] Comment on above: Result Comment: JAIME GEMENT OF PATIENT CARE PER NURSING PROTOCOL Performed By: #### L 501.080 ####[facility] [address] [place], [address] FINGERSTICK GLU 152 mg/dL High [address] [place] [address] Comment on above: Result Comment: JAIME GEMENT OF PATIENT CARE PER NURSING PROTOCOL Performed By: #### L 501.080 ####[facility] [address] [place], [address] CBC W/Diff, Automatedon 07-11 Absolute Lymph 2.40 X10 3/uL Normal 0.83-4.51 [facility] Comment on above: Performed By: #### L 500.2500, L100.0100 ####[facility] [address] [place], [address] Absolute Neut 3.4 X10 3/uL Normal 2.0-7.7 [facility] Comment on above: Performed By: #### L 500.2500, L100.0100 ####[facility] [address] [place], [address] Basophils/100 WBC (Bld) 0.2 % Normal 0-1 [facility] Comment on above: Performed By: #### L 500.2500, L100.0100 ####[facility] [address] [place], [address] Eosinophils/100 WBC (Bld) 3.4 % Normal 0-5 [facility] Comment on above: Performed By: #### L 500.2500, L100.0100 ####[facility] [address] [place], [address] Erythrocyte distribution width (RBC) [Ratio] 13.5 % Normal 11.6-14.6 [facility] Comment on above: Performed By: #### L 500.2500, L100.0100 ####[facility] [address] [place], [address] Hematocrit (Bld) [Volume fraction] 36.3 % Low 37-47 [facility] Comment on above: Performed By: #### L 500.2500, L100.0100 ####[facility] [address] [place], [address] Hemoglobin (Bld) [Mass/Vol] 12.4 g/dL Normal 12.0-15.0 [facility] Comment on above: Performed By: #### L 500.2500, L100.0100 ####[facility] [address] [place], [address] IG% 0.500 Normal 0.0-0.9 [facility] Comment on above: Result Comment: IG% - Immature Granulocytes (promyelocytes, myelocytes andmetamyelocytes) > 1% indicates that a LEFT SHIFT is Present. Performed By: #### L 500.2500, L100.0100 ####[facility] [address] [place], [address] Lymphocytes/100 WBC (Bld) 36.8 % Normal 19-41 [facility] Comment on above: Performed By: #### L 500.2500, L100.0100 ####[facility] [address] [place], [address] MCH (RBC) [Entitic mass] 29.5 pg Normal 27.0-32.0 [facility] Comment on above: Performed By: #### L 500.2500, L100.0100 ####[facility] [address] [place], [address] MCHC (RBC) [Mass/Vol] 34.2 g/dL Normal 32-36 [facility] Comment on above: Performed By: #### L 500.2500, L100.0100 ####[facility] [address] [place], [address] MCV (RBC) [Entitic vol] 86.2 fL Normal 81-99 [facility] Comment on above: Performed By: #### L 500.2500, L100.0100 ####[facility] [address] [place], [address] Monocytes/100 WBC (Bld) 6.7 % Normal 0-10 [facility] Comment on above: Performed By: #### L 500.2500, L100.0100 ####[facility] [address] [place], [address] Neutrophils/100 WBC (Bld) 52.4 % Normal 47-70 [facility] Comment on above: Performed By: #### L 500.2500, L100.0100 ####[facility] [address] [place], [address] Nucleated RBC (Bld) [#/Vol] 0 10*3/uL Normal 0-5 [facility] Comment on above: Performed By: #### L 500.2500, L100.0100 ####[facility] [address] [place], [address] Platelet mean volume (Bld) [Entitic vol] 10.0 fL Normal 6.2-12.0 [facility] Comment on above: Performed By: #### L 500.2500, L100.0100 ####[facility] [address] [place], [address] Platelets (Bld) [#/Vol] 221 10*3/uL Normal 150-450 [facility] Comment on above: Performed By: #### L 500.2500, L100.0100 ####[facility] [address] [place], [address] RBC (Bld) [#/Vol] 4.21 10*6/uL Normal 4.2-5.4 [facility] Comment on above: Performed By: #### L 500.2500, L100.0100 ####[facility] [address] [place], [address] RDW SD 41.8 fl Normal 35.1-43.9 [facility] Comment on above: Performed By: #### L 500.2500, L100.0100 ####[facility] [address] [place], [address] WBC (Bld) [#/Vol] 6.5 10*3/uL Normal 4.4-11.0 [facility] Comment on above: Performed By: #### L 500.2500, L100.0100 ####[facility] [address] [place], [address] CNPNon 08-03-2024 CNPN Normal [facility] Gram Stainon 08-03-2024 GS List Antibiotics Las t 48 Hours? macrobid List Antibiotics to be Started? none Acceptable Specimen? Yes (<25 Epithelial cells per/lpf) Gram Stain 2+ White Blood Cells 2+ Epithelial cells 2+ Gram positive cocci 2+ Gram negative rods 1+ Gram positive rods Normal [facility] Comment on above: Performed By: #### M 100.2400, M100.2000 ####[facility] [address] [place], [address] Urine Cultureon 08-03-2024 URC Culture exhibits no growth. Normal [facility] Comment on above: Performed By: #### M 100.2200 ####[facility] [address] [place], [address] 12 Lead EKGon 08-02-2024 12 Lead EKG Normal [facility] Base excess Calc (BldV) [Mol es/Vol]Ordered By: Marcelo Madrigal on 08-02-2024 Venous Blood Base Excess -5 mmol/L Low -1.0-3.5 [facility] Basic Metabolic Profile (BMP )on 08-02-2024 BUN/CRE 19.4 RATIO Normal 10-20 [facility] Comment on above: Performed By: #### L 500.2500, L100.0100 ####[facility] [address] [place], [address] CA,Total 9.1 mg/dL Normal 8.5-10.1 [facility] Comment on above: Performed By: #### L 500.2500, L100.0100 ####[facility] [address] [place], [address] Chloride [Moles/Vol] 103 mmol/L Normal 98-107 [facility] Comment on above: Performed By: #### L 500.2500, L100.0100 ####[facility] [address] [place], [address] CO2 [Moles/Vol] 21.0 mmol/L Normal 21.0-32.0 [facility] Comment on above: Performed By: #### L 500.2500, L100.0100 ####[facility] [address] [place], [address] Creatinine [Mass/Vol] 1.34 mg/dL High 0.55-1.02 [facility] Comment on above: Result Comment: The validity of the calculated GFR GFRAA in patients over70 years has not been determined. Clinical correlation isessential. Performed By: #### L 500.2500, L100.0100 ####[facility] [address] [place], [address] ECRCL 47.55 ml/min Normal [facility] Comment on above: Performed By: #### L 500.2500, L100.0100 ####[facility] [address] [place], [address] EST GFR - AA 51 mL/min Low >60 [facility] Comment on above: Result Comment: Afri can Libyan GFR Calc Performed By: #### L 500.2500, L100.0100 ####[facility] [address] [place], [address] GAP 11 Normal 5-15 [facility] Comment on above: Performed By: #### L 500.2500, L100.0100 ####[facility] [address] [place], [address] GFR/1.73 sq M.predicted among non-blacks MDRD (S/P/Bld) [Vol rate/Area] 42 mL/min/{1.73_m2} Low >60 [facility] Comment on above: Result Comment: Non- GFR Calc Performed By: #### L 500.2500, L100.0100 ####[facility] [address] [place], [address] Glucose [Mass/Vol] 207 mg/dL High 74-106 [facility] Comment on above: Result Comment: Gluc ose result greater than or equal to 200 mg/dLsuggests DIABETES MELLITUS per A.D.A. criteria. Performed By: #### L 500.2500, L100.0100 ####[facility] [address] [place], [address] Potassium [Moles/Vol] 3.8 mmol/L Normal 3.5-5.1 [facility] Comment on above: Performed By: #### L 500.2500, L100.0100 ####[facility] [address] [place], [address] Sodium [Moles/Vol] 135 mmol/L Low 136-145 [facility] Comment on above: Performed By: #### L 500.2500, L100.0100 ####[facility] [address] [place], [address] Urea nitrogen [Mass/Vol] 26 mg/dL High 7-18 [facility] Comment on above: Performed By: #### L 500.2500, L100.0100 ####[facility] [address] [place], [address] Bedside Glucoseon 08-02-2024 FINGERSTICK GLU 186 mg/dL High 74-106 [facility] Comment on above: Result Comment: JAIME GEMENT OF PATIENT CARE PER NURSING PROTOCOL Performed By: #### L 501.080 ####[facility] [address] [place], [address] FINGERSTICK GLU 170 mg/dL High 74-106 [facility] Comment on above: Result Comment: JAIME GEMENT OF PATIENT CARE PER NURSING PROTOCOL Performed By: #### L 501.080 ####[facility] [address] [place], [address] Bilirubin Test strip Ql (U)O rdered By: Marcelo Madrigal on 08-02-2024 Bilirubin Ql (U) Negative Negative [facility] Blood cultureOrdered By: Marcelo Madrigal on 08-02-2024 Bacteria identified Cx Nom (Bld) No growth in 5 days. [facility] Bacteria identified Cx Nom (Bld) No growth in 5 days. [facility] C. difficile DNA NICOLE+probe Q l (Unsp spec)Ordered By: Thalia Hernandez on 08-02-2024 Clostridioides difficile (PCR) [facility] CBC W/Diff, Automatedon 11-2 Absolute Lymph 0.96 X10 3/uL Normal 0.83-4.51 [facility] Comment on above: Performed By: #### L 500.2500, L100.0100 ####[facility] [address] [place], [address] Absolute Neut 18.7 X10 3/uL High 2.0-7.7 [facility] Comment on above: Performed By: #### L 500.2500, L100.0100 ####[facility] [address] [place], [address] Basophils/100 WBC (Bld) 0.2 % Normal 0-1 [facility] Comment on above: Performed By: #### L 500.2500, L100.0100 ####[facility] [address] [place], [address] Eosinophils/100 WBC (Bld) 0.3 % Normal 0-5 [facility] Comment on above: Performed By: #### L 500.2500, L100.0100 ####[facility] [address] [place], [address] Erythrocyte distribution width (RBC) [Ratio] 13.2 % Normal 11.6-14.6 [facility] Comment on above: Performed By: #### L 500.2500, L100.0100 ####[facility] [address] [place], [address] Hematocrit (Bld) [Volume fraction] 43.8 % Normal 37-47 [facility] Comment on above: Performed By: #### L 500.2500, L100.0100 ####[facility] [address] [place], [address] Hemoglobin (Bld) [Mass/Vol] 15.3 g/dL High 12.0-15.0 [facility] Comment on above: Performed By: #### L 500.2500, L100.0100 ####[facility] [address] [place], [address] IG% 0.700 Normal 0.0-0.9 [facility] Comment on above: Result Comment: IG% - Immature Granulocytes (promyelocytes, myelocytes andmetamyelocytes) > 1% indicates that a LEFT SHIFT is Present. Performed By: #### L 500.2500, L100.0100 ####[facility] [address] [place], [address] Lymphocytes/100 WBC (Bld) 4.6 % Low 19-41 [facility] Comment on above: Performed By: #### L 500.2500, L100.0100 ####[facility] [address] [place], [address] MCH (RBC) [Entitic mass] 29.5 pg Normal 27.0-32.0 [facility] Comment on above: Performed By: #### L 500.2500, L100.0100 ####[facility] [address] [place], [address] MCHC (RBC) [Mass/Vol] 34.9 g/dL Normal 32-36 [facility] Comment on above: Performed By: #### L 500.2500, L100.0100 ####[facility] [address] [place], [address] MCV (RBC) [Entitic vol] 84.4 fL Normal 81-99 [facility] Comment on above: Performed By: #### L 500.2500, L100.0100 ####[facility] [address] [place], [address] Monocytes/100 WBC (Bld) 3.9 % Normal 0-10 [facility] Comment on above: Performed By: #### L 500.2500, L100.0100 ####[facility] [address] [place], [address] Neutrophils/100 WBC (Bld) 90.3 % High 47-70 [facility] Comment on above: Performed By: #### L 500.2500, L100.0100 ####[facility] [address] [place], [address] Nucleated RBC (Bld) [#/Vol] 0 10*3/uL Normal 0-5 [facility] Comment on above: Performed By: #### L 500.2500, L100.0100 ####[facility] [address] [place], [address] Platelet mean volume (Bld) [Entitic vol] 9.9 fL Normal 6.2-12.0 [facility] Comment on above: Performed By: #### L 500.2500, L100.0100 ####[facility] [address] [place], [address] Platelets (Bld) [#/Vol] 296 10*3/uL Normal 150-450 [facility] Comment on above: Performed By: #### L 500.2500, L100.0100 ####[facility] [address] [place], [address] RBC (Bld) [#/Vol] 5.19 10*6/uL Normal 4.2-5.4 [facility] Comment on above: Performed By: #### L 500.2500, L100.0100 ####[facility] [address] [place], [address] RDW SD 40.8 fl Normal 35.1-43.9 [facility] Comment on above: Performed By: #### L 500.2500, L100.0100 ####[facility] [address] [place], [address] WBC (Bld) [#/Vol] 20.7 10*3/uL High 4.4-11.0 [facility] Comment on above: Performed By: #### L 500.2500, L100.0100 ####[facility] [address] [place], [place], [address] CDIFF (PCR)on 08-02-2024 CDIFF Is the patient recei ving laxatives? N New/unexplained onset of 3 or more stools in past 24 hrs? Y Pending 027 027 NAP1-B1 Presumptive Negative *for epidemiolologic???use C. Diff PCR Negative- No toxigenic C. Diff Detected Normal [facility] Comment on above: Performed By: #### M 100.637, M100.7296 ####[facility] [address] [place], [place], [address] CO2 (BldV) [Moles/Vol]Ordere d By: Marcelo Madrigal on 08-02-2024 CO2 [Moles/Vol] 23 mmol/L 23-33 [facility] CO2 (BldV) [Partial pressure ]Ordered By: Marcelo Madrigal on 08-02-2024 Bed Mix Venous Bld PCO2 at Pat Temp 40.1 mmHg Low 41-51 [facility] Chest 1 View (Portable)on Chest 1 View (Portable) Normal [facility] ENTERIC PATHOGEN PANEL STOOL on 08-02-2024 EP PANEL Normal [facility] Comment on above: Performed By: #### M 100.637, M100.7896 ####[facility] [address] [place], [place], [id number] Emergency Department Summary on 08-02-2024 Emergency Department Summary Normal [facility] Epithelial cells.squamous LM Ql (Urine sed)Ordered By: Marcelo Madrigal on 08-02-2024 Epithelial cells.squamous LM.HPF (Urine sed) [#/Area] 5 /[HPF] 5-10 [facility] Glucose Ql (U)Ordered By: Lakeisha Madrigal on 08-02-2024 Urine Glucose (UA) Normal mg/dl Normal [facility] Gram stainOrdered By: Thalia Hernandez on 08-02-2024 Microscopic observation Gram stain Nom (Unsp spec) [facility] H AND P Exam - Hospitaliston 08-02-2024 H&P Exam - Hospitalist Normal [facility] Influenza virus A and B and SARS-CoV-2 (COVID-19) and Respiratory syncytial virus RNAOrdered By: Marcelo Madrigal on 08-02-2024 SARS-CoV-2 (COVID-19) RNA NICOLE+probe Ql (Unsp spec) [facility] Ketones Test strip Ql (U)Ord ered By: Marcelo Madrigal on 08-02-2024 Ketones Ql (U) Negative Negative [facility] Lactic Acidon 08-02-2024 Lactate [Moles/Vol] 1.7 mmol/L Normal 0.4-1.9 [facility] Comment on above: Performed By: #### L 503.6005 ####[facility] [address] [place], [place], [id number] Lactate [Moles/Vol] 3.3 mmol/L Invalid Interpretation Code 0.4-1.9 [facility] Comment on above: Order Comment: Y Result Comment: Crit ical Result(s) Called at: 07:24:48 08/02/2024 by: Angeline Munoz RN (ER). Results read back by same. Performed By: #### L 503.6005 ####[facility] [address] [place], [place], [phone] Lactic acid measurementOrder ed By: Marcelo Madrigal on 08-02-2024 Lactate [Moles/Vol] 1.7 mmol/L 0.4-2.0 [facility] M100.678on 08-02-2024 M100.678 Pending SARS-CoV-2 (COVID 19) Negative INFLUENZA A Negative INFLUENZA B Negative RSV PCR Negative Normal [facility] Comment on above: Performed By: #### M 100.678 ####[facility] [address] [facility] [place], [place], [id number] Microorganism identified Cx Nom (Unsp spec)Ordered By: Thalia Hernandez on 08-02-2024 Respiratory Culture [facility] Microscopic analysis of urin e for red blood cells (RBC)Ordered By: Marcelo Madrigal on 08-02-2024 Urine RBC 0 SEEN /hpf 0-5 [facility] Mucus LM Ql (Urine sed)Order ed By: Marcelo Madrigal on 08-02-2024 Mucus Ql (Urine sed) 0 SEEN /hpf [facility] Nitrite Test strip Ql (U)Ord ered By: Marcelo Madrigal on 08-02-2024 Nitrite Ql (U) Negative Negative [facility] No Panel InformationOrdered By: Marceloadrianne Madrigal on 08-02-2024 Blood Gas Sample Site Not entered [facility] Blood Gas Specimen Type NICOLE [facility] Oxygen Delivery Device Not entered [facility] Oxygen (BldV) [Partial press ure]Ordered By: Marceloadrianne Madrigal on 08-02-2024 Venous Blood Partial Pressure O2 41 mmHg High 25-40 [facility] Protein Test strip Ql (U)Ord ered By: Marceloadrianne Madrigal on 08-02-2024 Protein Ql (U) 15 mg/dl High Negative [facility] RESPIRATORY PANEL MOLECULARo n 08-02-2024 RP PANEL Normal [facility] Comment on above: Performed By: #### M 100.638 ####[facility] [address] [place], [address] Respiratory pathogens DNA an d RNA panel NICOLE+probe (Resp)Ordered By: Thalia Hernandez on 08-02-2024 Respiratory Panel (PCR) [facility] Stool enteric pathogen panel by probe and target amplification methodOrdered By: Thalia Hernandez on 08-02-2024 Enteric Bacteriology [facility] Urinalysis, Completeon 08-02 EPI,SQUAMOUS 5-10 SEEN Normal 5-10 [facility] Comment on above: Order Comment: CLEAN CATCH Performed By: #### L 400.0001 ####[facility] [address] [place], [address] WBC 5-10 SEEN Normal 0-5 [facility] Comment on above: Order Comment: CLEAN CATCH Performed By: #### L 400.0001 ####[facility] [address] [place], [address] BACTERIA 0 SEEN Normal None Seen [facility] Comment on above: Order Comment: CLEAN CATCH Performed By: #### L 400.0001 ####[facility] [address] [place], [address] Mucus Ql (Urine sed) 0 SEEN Normal [facility] Comment on above: Order Comment: CLEAN CATCH Performed By: #### L 400.0001 ####[facility] [address] [place], [address] RBC 0 SEEN Normal 0-5 [facility] Comment on above: Order Comment: CLEAN CATCH Performed By: #### L 400.0001 ####[facility] [address] [place], [address] Urine blood detectionOrdered By: Marcelo Madrigal on 08-02-2024 Urine Occult Blood Negative Negative [facility] Urine clarityOrdered By: Marcelo Madrigal on 08-02-2024 Clarity (U) Clear Clear [facility] Urine color determinationOrd ered By: Marcelo Madrigal on 08-02-2024 Color (U) Yellow Yellow [facility] Urine cultureOrdered By: Angela Guerin on 08-02-2024 Bacteria identified Cx Nom (U) Culture exhibits no growth. [facility] Urine leukocyte esterase det ection by dipstickOrdered By: Marcelo Madrigal on 08-02-2024 Leukocyte esterase Test strip Ql (U) 500 /ul High Negative [facility] Urine pHOrdered By: Marcelo silver on 08-02-2024 pH (U) 6.0 [pH] 5.0 - 8.0 [facility] Urine sediment bacteria coun t by microscopy (number/high power field)Ordered By: Marcelo Madrigal on 08-02-2024 Bacteria LM.HPF (Urine sed) [#/Area] 0 /[HPF] None Seen [facility] Urine specific gravity measu rementOrdered By: Marcelo Madrigal on 08-02-2024 Specific gravity (U) [Rel density] 1.015 1.002-1.030 [facility] Urobilinogen Ql (U)Ordered B y: Marcelo Madrigal on 08-02-2024 Urine Urobilinogen Normal mg/dl Normal [facility] Venous Blood Gason 4 Blood Gas Type NICOLE Normal [facility] Comment on above: Performed By: #### L 9000.0810 ####[facility] [address] [place], [address] CO2 [Moles/Vol] 23 mmol/L Normal 23-33 [facility] Comment on above: Performed By: #### L 0.0810 ####[facility] [address] [place], [address] HCO3 (Bld) [Moles/Vol] 21 mmol/L Low 22-26 [facility] Comment on above: Performed By: #### L 0.0810 ####[facility] [address] [place], [address] O2 Delivery Dev Not entered Normal [facility] Comment on above: Performed By: #### L 0.0810 ####[facility] [address] [place], [address] SITE Not entered Normal [facility] Comment on above: Performed By: #### L 9000.0810 ####[facility] [address] [place], [address] VBG BE -5 mmol/L Low -1.0-3.5 [facility] Comment on above: Performed By: #### L 9000.0810 ####[facility] [address] [place], [address] VBG pCO2 40.1 mmHg Low 41-51 [facility] Comment on above: Performed By: #### L 9000.0810 ####[facility] [address] [place], [address] VBG pH 7.34 Normal 7.32-7.42 [facility] Comment on above: Performed By: #### L 9000.0810 ####[facility] [address] [place], [place], [address] VBG PO2 41 mmHg High 25-40 [facility] Comment on above: Performed By: #### L 9000.0810 ####[facility] [address] [place], [place], [address] VBG SO2 73 High 50-70 [facility] Comment on above: Performed By: #### L 9000.0810 ####[facility] [address] [place], [place], [address] Venous blood bicarbonate ruchi surementOrdered By: Marcelo Madrigal on 08-02-2024 HCO3 (Bld) [Moles/Vol] 21 mmol/L Low 22-26 [facility] Venous blood oxygen saturati on measurementOrdered By: Marcelo Madrigal on 08-02-2024 Oxygen saturation in Blood 73 % High 50-70 [facility] White blood cell countOrdere d By: Marcelo Madrigal on 08-02-2024 Urine WBC 5-10 SEEN /hpf 0-5 [facility] pH (BldV)Ordered By: Marcelo Gal lo on 08-02-2024 Venous Blood pH 7.34 7.32-7.42 [facility] Bacteria Ur Culton Bacteria identified Cx Nom (U) Normal [facility] Comment on above: Performed By: #### 6 30-4 ####[facility] [id number] [place] [address] [place] CNOVon 08-01-2024 CNOV Normal [facility] UA DIP, URINE (POC)on 2023 BILIRUBIN UA (POCT) Negative Negative [facility] CLARITY UA (POCT) Clear [facility] COLOR UA (POCT) Yellow [facility] GLUCOSE UA (POCT) Negative Negative mg/dL [facility] Hemoglobin Ql (U) Negative Negative [facility] KETONE UA (POCT) Trace Negative mg/dL [facility] LEUKOCYTES UA (POCT) Negative Negative [facility] NITRITE UA (POCT) Negative Negative [facility] PH UA (POCT) 5.5 4.5 - 8.0 [facility] Protein Ql (U) Negative Negative mg/dL [facility] SPECIFIC GRAVITY UA (POCT) 1.020 1.005 - 1.030 [facility] UROBILINOGEN UA (POCT) 0.2 Leonie l E.U./dL [facility] Location:[address], [place], [place], [address] [place] [address] POINT OF CARE [facility] CNOVon 07-29-2024 CNOV Normal [facility] CNPNon 07-29-2024 CNPN Normal [facility] Methylmalonate SerPl-sCncon 07-29-2024 Methylmalonate [Moles/Vol] 0.13 umol/L Normal <=0.40 [facility] Comment on above: Order Comment: Speci men Type: BLOOD SPECIMENOrdering Facility: [facility] Address: [address] [place] [address] Result Comment: This test was developed, and its performance characteristics determined by the [facility] Department of Pathology and Laboratory Medicine. It has not been cleared or approved by the FDA. The [facility] Department of Pathology and Laboratory Medicine is regulated under CLIA as qualified to perform high-complexity testing. This test is used for clinical purposes. It should not be regarded as investigational or for research. Performed By: #### 1 3964-2 ####[facility] [id number] [place] [address] [place] PROTEIN ELECTROPHORESIS SERU M WITH ODELL (P)on 07-29-2024 Albumin [Mass/Vol] 4.34 g/dL Normal 3.43-5.41 [facility] Comment on above: Order Comment: Speci men Type: BLOOD SPECIMENOrdering Facility: [facility] Address: [address] [place] [address] Performed By: #### L [id number] ####[facility] [id number] [place] [address] [place] Alpha 1 globulin Elph [Mass/Vol] 0.37 g/dL Normal 0.18-0.43 [facility] Comment on above: Order Comment: Speci men Type: BLOOD SPECIMENOrdering Facility: [facility] Address: [address] [place] [address] Performed By: #### L [id number] ####[facility] [id number] [place] [address] [place] Alpha 2 globulin Elph [Mass/Vol] 0.71 g/dL Normal 0.42-0.98 [facility] Comment on above: Order Comment: Speci men Type: BLOOD SPECIMENOrdering Facility: [facility] Address: [address] [place] [address] Performed By: #### L [id number] ####[facility] [id number] [place] [address] [place] Beta globulin Elph [Mass/Vol] 1.17 g/dL Normal 0.61-1.17 [facility] Comment on above: Order Comment: Speci men Type: BLOOD SPECIMENOrdering Facility: [facility] Address: [address] [place] [address] Performed By: #### L [id number] ####[facility] [id number] [place] [address] [place] COMMENT (SERUM PROT ELECTRO) Monoclonal Protein analysis (immunofixation) is not indicated. Normal [facility] Comment on above: Order Comment: Speci men Type: BLOOD SPECIMENOrdering Facility: [facility] Address: [address] [place] [address] Performed By: #### L [id number] ####[facility] [id number] [place] [address] [place] Gamma globulin Elph [Mass/Vol] 0.61 g/dL Normal 0.53-1.51 [facility] Comment on above: Order Comment: Speci men Type: BLOOD SPECIMENOrdering Facility: [facility] Address: [address] [place] [address] Performed By: #### L [id number] ####[facility] [id number] [place] [address] [place] M-PROTEIN LOCATION Normal [facility] Comment on above: Order Comment: Speci men Type: BLOOD SPECIMENOrdering Facility: [facility] Address: [address] [place] [address] Result Comment: Not Applicable. Performed By: #### L [id number] ####[facility] [id number] [place] [address] [place] Protein Fractions [Interp] No definitive M protein is identified on protein electrophoresis. Normal No definitive M protein is identified on protein electrophore sis. [facility] Comment on above: Order Comment: Speci men Type: BLOOD SPECIMENOrdering Facility: [facility] Address: [address] [place] [address] Performed By: #### L [id number] ####[facility] [id number] [place] [address] [place] Protein.monoclonal Elph [Mass/Vol] 0.00 g/dL Normal <=0.00 [facility] Comment on above: Order Comment: Speci men Type: BLOOD SPECIMENOrdering Facility: [facility] Address: [address] [place] [address] Performed By: #### L [id number] ####[facility] [id number] [place] [address] [place] SPE STAFF REVIEW Reviewed by Madonna Flores MD Normal [facility] Comment on above: Order Comment: Speci men Type: BLOOD SPECIMENOrdering Facility: [facility] Address: [address] [place] [address] Performed By: #### L [id number] ####[facility] [id number] [place] [address] [place] Prot SerPl-mCncon 07-29-2024 Protein [Mass/Vol] 7.2 g/dL Normal 6.3-8.0 [facility] Comment on above: Order Comment: Speci men Type: BLOOD SPECIMENOrdering Facility: [facility] Address: [address] [place] [address] Performed By: #### 2 132-9, 3016-3, 2885-2 ####[facility] [id number] [place] [address] [place] TSH SerPl-aCncon 07-29-2024 TSH Qn 1.370 m[IU]/L Normal 0.270-4.200 [facility] Comment on above: Order Comment: Speci men Type: BLOOD SPECIMENOrdering Facility: [facility] Address: [address] [place] [address] Performed By: #### 2 132-9, 3016-3, 2885-2 ####[facility] [id number] [place] [address] [place] Vit B12 SerPl-mCncon 024 Cobalamin (Vitamin B12) [Mass/Vol] 463 pg/mL Normal 232-1245 [facility] Comment on above: Order Comment: Speci men Type: BLOOD SPECIMENOrdering Facility: [facility] Address: [address] [place] [address] Performed By: #### 2 132-9, 3016-3, 2885-2 ####[facility] [id number] [place] [id number] [place] CNPTOUTREACHon 07-22-2024 CNPTOUTREACH Normal [facility] L/S Spine Min 4 Viewson L/S Spine Min 4 Views Normal [facility] Orthopedic Visit Reporton Orthopedic Visit Report Normal [facility] CNPNon 07-07-2024 CNPN Normal [facility] CNPTOUTREACHon 07-03-2024 CNPTOUTREACH Normal [facility] AAA Screeningon 07-02-2024 AAA Screening Normal [facility] Carotid Duplex Ultrasoundon 07-02-2024 Carotid Duplex Ultrasound Normal [facility] CNPNon 06-29-2024 CNPN Normal [facility] CT CHEST WO IVCONon 06-23-20 CT CHEST WO IVCON Normal [facility] ALBUMIN/CREATININE RATIO, UR INEon 06-22-2024 Albumin DL <= 20 mg/L (U) [Mass/Vol] mg/dL Normal [facility] Comment on above: Order Comment: Speci men Type: URINE SPECIMENOrdering Facility: [facility] Address: [address] [place] [address] Performed By: #### U ACR ####[facility] [id number] [place] [address] [place] Albumin/Creatinine (U) [Mass ratio] <12 Normal <30 [facility] Comment on above: Order Comment: Speci men Type: URINE SPECIMENOrdering Facility: [facility] Address: [address] [place] [address] Result Comment: Adul t Male and Female Nephrotic Criteria:<30 mg/g is considered normal to mildly cjhrhhvqi30-792 mg/g is considered moderately increased>300 mg/g is considered severely increasedKDIGO. (2013). KDIGO 2012 Clinical Practice Guideline for the Evaluation and Management of Chronic Kidney Disease. Official Journal of the International Society of Nephrology, 3(1), 1-150. Performed By: #### U ACR ####[facility] [id number] [place] [address] [place] Creatinine (U) [Mass/Vol] 98.9 mg/dL Normal 20.0-300.0 [facility] Comment on above: Order Comment: Speci men Type: URINE SPECIMENOrdering Facility: [facility] Address: [address] [place] [id number] Performed By: #### U ACR ####[facility] [id number] [place] [id number] [place] CBC panel Auto (Bld)on 06-22 Erythrocyte distribution width (RBC) [Ratio] 14.6 % Normal 11.5-15.0 [facility] Comment on above: Order Comment: Speci men Type: BLOOD SPECIMENOrdering Facility: [facility] Address: [address] [place] [address] Performed By: #### 5 8410-2 ####[facility] [id number] [place] [address] [place] Hematocrit (Bld) [Volume fraction] 44.0 % Normal 36.0-46.0 [facility] Comment on above: Order Comment: Speci men Type: BLOOD SPECIMENOrdering Facility: [facility] Address: [address] [place] [address] Performed By: #### 5 8410-2 ####[facility] [id number] [place] [address] [place] Hemoglobin (Bld) [Mass/Vol] 14.6 g/dL Normal 11.5-15.5 [facility] Comment on above: Order Comment: Speci men Type: BLOOD SPECIMENOrdering Facility: [facility] Address: [address] [place] [address] Performed By: #### 5 8410-2 ####[facility] [id number] [place] [address] [place] MCH (RBC) [Entitic mass] 29.0 pg Normal 26.0-34.0 [facility] Comment on above: Order Comment: Speci men Type: BLOOD SPECIMENOrdering Facility: [facility] Address: [address] [place] [address] Performed By: #### 5 8410-2 ####[facility] [id number] [place] [address] [place] MCHC (RBC) [Mass/Vol] 33.2 g/dL Normal 30.5-36.0 [facility] Comment on above: Order Comment: Speci men Type: BLOOD SPECIMENOrdering Facility: [facility] Address: [address] [place] [address] Performed By: #### 5 8410-2 ####[facility] [id number] [place] [address] [place] MCV (RBC) [Entitic vol] 87.3 fL Normal 80.0-100.0 [facility] Comment on above: Order Comment: Speci men Type: BLOOD SPECIMENOrdering Facility: [facility] Address: [address] [place] [address] Performed By: #### 5 8410-2 ####[facility] [id number] [place] [address] [place] Nucleated RBC (Bld) [#/Vol] 10*3/uL Normal <0.01 [facility] Comment on above: Order Comment: Speci men Type: BLOOD SPECIMENOrdering Facility: [facility] Address: [address] [place] [address] Performed By: #### 5 8410-2 ####[facility] [id number] [place] [address] [place] Platelet mean volume (Bld) [Entitic vol] 10.5 fL Normal 9.0-12.7 [facility] Comment on above: Order Comment: Speci men Type: BLOOD SPECIMENOrdering Facility: [facility] Address: [address] [place] [address] Performed By: #### 5 8410-2 ####[facility] [id number] [place] [address] [place] Platelets (Bld) [#/Vol] 325 10*3/uL Normal 150-400 [facility] Comment on above: Order Comment: Speci men Type: BLOOD SPECIMENOrdering Facility: [facility] Address: [address] [place] [address] Performed By: #### 5 8410-2 ####[facility] [id number] [place] [address] [place] RBC (Bld) [#/Vol] 5.04 10*6/uL Normal 3.90-5.20 [facility] Comment on above: Order Comment: Speci men Type: BLOOD SPECIMENOrdering Facility: [facility] Address: [address] [place] [address] Performed By: #### 5 8410-2 ####[facility] [id number] [place] [address] [place] WBC (Bld) [#/Vol] 8.99 10*3/uL Normal 3.70-11.00 [facility] Comment on above: Order Comment: Speci men Type: BLOOD SPECIMENOrdering Facility: [facility] Address: [address] [place] [address] Performed By: #### 5 8410-2 ####[facility] [id number] [place] [address] [place] Cholesterol in LDL Direct as say [Mass/Vol]on 06-22-2024 Cholesterol in LDL [Mass/Vol] 54 mg/dL Normal <100 [facility] Comment on above: Order Comment: Speci men Type: BLOOD SPECIMENOrdering Facility: [facility] Address: [address] [place] [address] Result Comment: <100 mg/dL, Optimal 100-129 mg/dL, Near optimal/above optimal 130-159 mg/dL, Borderline high 160-189 mg/dL, High>189 mg/dL, Very highSecondary prevention optimal LDL Cholesterol levels are recommended to be < 70 mg/dL Performed By: #### 1 8262-6, 01738-3, 03834-8, 45147-5 ####[facility] [id number] [place] [address] [place] Cholesterol in VLDL [Mass/Vol] 60 mg/dL High <30 [facility] Comment on above: Order Comment: Speci men Type: BLOOD SPECIMENOrdering Facility: [facility] Address: [address] [place] [address] Performed By: #### 1 8262-6, 40856-3, 30788-5, 15348-0 ####[facility] [id number] [address] [address] [place] Comprehensive metabolic 2000 panelon 06-22-2024 Albumin [Mass/Vol] 4.4 g/dL Normal 3.9-4.9 [facility] Comment on above: Order Comment: Speci men Type: BLOOD SPECIMENOrdering Facility: [facility] Address: [address] [place] [address] Performed By: #### 1 8262-6, 99621-8, 30406-0, ####[facility] [id number] [place] [address] [place] ALP [Catalytic activity/Vol] 63 U/L Normal 34-123 [facility] Comment on above: Order Comment: Speci men Type: BLOOD SPECIMENOrdering Facility: [facility] Address: [address] [place] [address] Performed By: #### 1 8262-6, 96463-0, 58410-0, ####[facility] [id number] [place] [address] [place] ALT [Catalytic activity/Vol] 14 U/L Normal 7-38 [facility] Comment on above: Order Comment: Speci men Type: BLOOD SPECIMENOrdering Facility: [facility] Address: [address] [place] [address] Performed By: #### 1 8262-6, 34093-1, 66999-1, ####[facility] LABCLIA [id number] [place] [id number] [place] Anion gap [Moles/Vol] 13 mmol/L Normal 8-15 [facility] Comment on above: Order Comment: Speci men Type: BLOOD SPECIMENOrdering Facility: [facility] Address: [address] [place] [address] Performed By: #### 1 8262-6, 82147-7, 52865-1, ####[facility] LABCLIA [id number] [place] [id number] [place] AST [Catalytic activity/Vol] 20 U/L Normal 13-35 [facility] Comment on above: Order Comment: Speci men Type: BLOOD SPECIMENOrdering Facility: [facility] Address: [address] [place] [address] Performed By: #### 1 8262-6, 33058-8, 89622-2, ####[facility] LABCLIA [id number] [place] [address] [place] Bilirubin [Mass/Vol] 0.2 mg/dL Normal 0.2-1.3 [facility] Comment on above: Order Comment: Speci men Type: BLOOD SPECIMENOrdering Facility: [facility] Address: [address] [place] [address] Performed By: #### 1 8262-6, 27868-5, 90742-3, ####[facility] LABCLIA [id number] [place] [address] [place] Calcium [Mass/Vol] 9.6 mg/dL Normal 8.5-10.2 [facility] Comment on above: Order Comment: Speci men Type: BLOOD SPECIMENOrdering Facility: [facility] Address: [address] [place] [address] Performed By: #### 1 8262-6, 04956-5, 74317-0, ####[facility] LABCLIA [id number] [place] [id number] [place] Chloride [Moles/Vol] 100 mmol/L Normal 98-107 [facility] Comment on above: Order Comment: Speci men Type: BLOOD SPECIMENOrdering Facility: [facility] Address: [address] [place] [address] Performed By: #### 1 8262-6, 90811-6, 58026-4, ####[facility] LABIA [id number] [address] [address] [place] CO2 [Moles/Vol] 26 mmol/L Normal 22-30 [facility] Comment on above: Order Comment: Speci men Type: BLOOD SPECIMENOrdering Facility: [facility] Address: [address] [place] [address] Performed By: #### 1 8262-6, 38120-6, 74554-1, ####[facility] LABIA [id number] [place] [address] [place] Creatinine [Mass/Vol] 0.52 mg/dL Low 0.58-0.96 [facility] Comment on above: Order Comment: Speci men Type: BLOOD SPECIMENOrdering Facility: [facility] Address: [address] [place] [address] Performed By: #### 1 8262-6, 68300-9, 38323-4, ####[facility] [id number] [address] [address] [place] Creatinine and Glomerular filtration rate.predicted panel (S/P/Bld) 104 mL/min/1.73m??? Normal >=60 [facility] Comment on above: Order Comment: Speci men Type: BLOOD SPECIMENOrdering Facility: [facility] Address: [address] [place] [address] Result Comment: Inge mated Glomerular Filtration Rate [...] actual GFR. Performed By: #### 1 8262-6, 44708-1, 72213-0, ####[facility] LABCLIA [id number] [address] [address] [place] Glucose [Mass/Vol] 158 mg/dL High 74-99 [facility] Comment on above: Order Comment: [place] Type: BLOOD SPECIMENOrdering Facility: [facility] Address: [address] [place] [address] Result Comment: The [place] Diabetes Association (ADA) provides guidance for cutoff [...] Standards of Medical Care in Diabetes 2016, [place] Diabetes Association. Diabetes Care. 2016.39(Suppl 1). Performed By: #### 1 8262-6, 44389-0, 08161-9, ####[facility] LABCLIA [id number] [address] [address] [place] Potassium [Moles/Vol] 3.5 mmol/L Low 3.7-5.1 [facility] Comment on above: Order Comment: [place] Type: BLOOD SPECIMENOrdering Facility: [facility] Address: [address] [place] [address] Performed By: #### 1 8262-6, 73970-0, 56810-6, ####[facility] LABCLIA [id number] [address] [address] [place] Protein [Mass/Vol] 7.4 g/dL Normal 6.3-8.0 [facility] Comment on above: Order Comment: Speci men Type: BLOOD SPECIMENOrdering Facility: [facility] Address: [address] [place] [address] Performed By: #### 1 8262-6, 42946-2, 28851-1, ####[facility] LABCLIA [id number] [place] [address] [place] Sodium [Moles/Vol] 139 mmol/L Normal 136-144 [facility] Comment on above: Order Comment: Speci men Type: BLOOD SPECIMENOrdering Facility: [facility] Address: [address] [place] [address] Performed By: #### 1 8262-6, 19570-7, 76820-4, ####[facility] LABIA [id number] [place] [address] [place] Urea nitrogen [Mass/Vol] 14 mg/dL Normal 7-21 [facility] Comment on above: Order Comment: Speci men Type: BLOOD SPECIMENOrdering Facility: [facility] Address: [address] [place] [address] Performed By: #### 1 8262-6, 77791-9, 68703-8, ####[facility] LABIA [id number] [place] [address] [place] HbA1c (Bld)on 06-22-2024 Average glucose Estimated from glycated hemoglobin (Bld) [Mass/Vol] 157 mg/dL Normal [facility] Comment on above: Order Comment: Speci men Type: BLOOD SPECIMENOrdering Facility: [facility] Address: [address] [place] [address] Result Comment: eAG: (Estimated average glucose) is a calculated value from HgbA1c and is new accounts representative of the average blood glucose level in the last 2-3 month period. Performed By: #### 5 5454-3 ####[facility] LABCLIA [id number] [place] [address] [place] HbA1c (Bld) [Mass fraction] 7.1 % High 4.3-5.6 [facility] Comment on above: Order Comment: aNncy [place] Type: BLOOD SPECIMENOrdering Facility: [facility] Address: [address] [place] [address] Result Comment: [place] Diabetes Association guidelines indicate that patients with HgbA1c in the range 5.7-6.4% are at increased risk for development of diabetes, and intervention by lifestyle modification may be beneficial. HgbA1c greater or equal to 6.5% is considered diagnostic of diabetes. Performed By: #### 5 5454-3 ####[facility] LABCLIA [id number] [place] [address] [place] Lipid 1996 panelon 4 Cholesterol [Mass/Vol] 136 mg/dL Normal <200 [facility] Comment on above: Order Comment: [place] Type: BLOOD SPECIMENOrdering Facility: [facility] Address: [address] [place] [address] Result Comment: <200 mg/dL, Desirable 200-239 mg/dL, Borderline high>239 mg/dL, High Performed By: #### 1 8262-6, 25136-2, 09553-2, 72871-6 ####[facility] LABCLIA [id number] [place] [address] [place] Cholesterol in HDL [Mass/Vol] 22 mg/dL Low >39 [facility] Comment on above: Order Comment: [place] Type: BLOOD SPECIMENOrdering Facility: [facility] Address: [address] [place] [address] Result Comment: 40-5 9 mg/dL, Acceptable>59 mg/dL, High: Negative risk factor for coronary heart disease<40 mg/dL, Low: Positive risk factor for coronary heart disease Performed By: #### 1 8262-6, 34061-4, 21226-9, 79882-7 ####[facility] LABCLIA [id number] [address] [place] Cholesterol in LDL [Mass/Vol] Normal [facility] Comment on above: Order Comment: Speci men Type: BLOOD SPECIMENOrdering Facility: [facility] Address: [address] [place] [address] Result Comment: Unab le to calculate due to increased Triglycerides. See LDL-Chol, Direct. Performed By: #### 1 8262-6, 05118-4, 19536-9, ####[facility] LABCLIA [id number] [place] [id number] [place] Cholesterol in LDL/Cholesterol in HDL [Mass ratio] Normal [facility] Comment on above: Order Comment: Speci men Type: BLOOD SPECIMENOrdering Facility: [facility] Address: [address] [place] [address] Result Comment: Unab le to calculate due to elevated Triglycerides.Reference:1. National Cholesterol Education Program ATP III Guideline At-A-Glance Quick Desk Reference: National Heart, Lung, and Blood [place]. National Institutes of Health. 2001: NIH Publication No. 01-3305.2. An International Atherosclerosis Society position paper: global recommendations for the management of dyslipidemia: executive summary, Atherosclerosis. 2014: 232(2):410-413. Performed By: #### 1 8262-6, 83154-1, 56176-7, ####[facility] LABCLIA [id number] [place] [address] [place] Cholesterol in VLDL [Mass/Vol] Normal [facility] Comment on above: Order Comment: Speci men Type: BLOOD SPECIMENOrdering Facility: [facility] Address: [address] [place] [address] Result Comment: Unab le to calculate due to increased Triglycerides. See LDL-Chol, Direct. Performed By: #### 1 8262-6, 86008-8, 85338-8, ####[facility] LABCLIA [id number] [address] [address] [place] Cholesterol non HDL [Mass/Vol] 114 mg/dL Normal <130 [facility] Comment on above: Order Comment: Speci men Type: BLOOD SPECIMENOrdering Facility: [facility] Address: [address] [place] [address] Result Comment: <130 mg/dL, Optimal 130-159 mg/dL, Near optimal/above optimal 160-189 mg/dL, Borderline high 190-219 mg/dL, High>219 mg/dL, Very highSecondary prevention optimal non HDL Cholesterol levels are recommended to be <100 mg/dL Performed By: #### 1 8262-6, 83573-2, 58467-3, 27761-4 ####[facility] LABCLIA [id number] [place] [address] [place] Cholesterol.total/Chol esterol in HDL [Mass ratio] 6.18 {ratio} High <5.10 [facility] Comment on above: Order Comment: Speci men Type: BLOOD SPECIMENOrdering Facility: [facility] Address: [address] [place] [address] Performed By: #### 1 8262-6, 58025-6, 49013-5, 68460-9 ####[facility] LABIA [id number] [place] [address] [place] FASTING TIME 10 hrs Normal [facility] Comment on above: Order Comment: Speci men Type: BLOOD SPECIMENOrdering Facility: [facility] Address: [address] [place] [address] Performed By: #### 1 8262-6, 14533-6, 30827-4, ####[facility] LABIA [id number] [place] [address] [place] Triglyceride [Mass/Vol] 407 mg/dL High <150 [facility] Comment on above: Order Comment: Speci men Type: BLOOD SPECIMENOrdering Facility: [facility] Address: [address] [place] [address] Result Comment: <150 mg/dL, Normal 150-199 mg/dL, Borderline high 200-499 mg/dL, High>499 mg/dL, Very high Performed By: #### 1 8262-6, 89721-9, 00502-1, ####[facility] LABCLIA [id number] [address] [address] [place] Magnesium SerPl-mCncon 06-22 Magnesium [Mass/Vol] 1.8 mg/dL Normal 1.7-2.3 [facility] Comment on above: Order Comment: Speci men Type: BLOOD SPECIMENOrdering Facility: [facility] Address: [address] [place] [address] Performed By: #### 1 8262-6, 91719-7, 46688-2, ####[facility] LABCLIA [id number] [address] [address] [place] CNPTOUTREACHon 06-04-2024 CNPTOUTREACH Normal [facility] CNPNon 05-20-2024 CNPN Normal [facility] CNOVon 05-19-2024 CNOV Normal [facility] COVID AND INFLUENZA A/B AND RSV PCR, ROUTINEon 05-19-2024 SARS-CoV-2 (COVID-19) RNA NICOLE+probe Ql (Unsp spec) SARS-COV-2 (AGENT OF COVID-19) RNA: Detected INFLUENZA A RNA: Not detected INFLUENZA B RNA: Not detected RESPIRATORY SYNCYTIAL VIRUS (RSV) RNA: Not detected Abnormal [facility] Comment on above: Performed By: #### C VFLRS ####[facility] LABCLIA [id number] [address] [address] [place] Urine Cultureon 05-11-2024 URC Mixed Gram Positive Organisms [place] Count 11,000-25,000 MIXC Mixed contaminants. Submit a new specimen if indicated. Normal [facility] Comment on above: Performed By: #### M 100.2200 ####[facility] [address] [place], [address] Abdomen/Pelvis without Conto n 05-08-2024 Abdomen/Pelvis without Cont Normal [facility] Basic Metabolic Profile (BMP )on 05-08-2024 BUN/CRE 22.7 RATIO High 10-20 [facility] Comment on above: Performed By: #### L 100.0100, L500.2500 ####[facility] [address] [place], [address] CA,Total 9.1 mg/dL Normal 8.5-10.1 [facility] Comment on above: Performed By: #### L 100.0100, L500.2500 ####[facility] [address] [place], [address] Chloride [Moles/Vol] 104 mmol/L Normal 98-107 [facility] Comment on above: Performed By: #### L 100.0100, L500.2500 ####[facility] [address] [place], [address] CO2 [Moles/Vol] 28.0 mmol/L Normal 21.0-32.0 [facility] Comment on above: Performed By: #### L 100.0100, L500.2500 ####[facility] [address] [place], [address] Creatinine [Mass/Vol] 0.75 mg/dL Normal 0.55-1.02 [facility] Comment on above: Result Comment: The validity of the calculated GFR GFRAA in patients over70 years has not been determined. Clinical correlation isessential. Performed By: #### L 100.0100, L500.2500 ####[facility] [address] [place], [address] ECRCL 85.35 ml/min Normal [facility] Comment on above: Performed By: #### L 100.0100, L500.2500 ####[facility] [address] [place], [address] EST GFR - AA 100 mL/min Normal >60 [facility] Comment on above: Result Comment: Afri can [place] GFR Calc Performed By: #### L 100.0100, L500.2500 ####[facility] [address] [place], [address] GAP 7 Normal 5-15 [facility] Comment on above: Performed By: #### L 100.0100, L500.2500 ####[facility] [address] [place], [address] GFR/1.73 sq M.predicted among non-blacks MDRD (S/P/Bld) [Vol rate/Area] 83 mL/min/{1.73_m2} Normal >60 [facility] Comment on above: Result Comment: Non- GFR Calc Performed By: #### L 100.0100, L500.2500 ####[facility] [address] [place], [address] Glucose [Mass/Vol] 152 mg/dL High 74-106 [facility] Comment on above: Result Comment: Fast ing Glucose result greater than or equal to 126 mg/dLsuggests DIABETES MELLITUS per A.D.A. criteria. Performed By: #### L 100.0100, L500.2500 ####[facility] [address] [place], [address] Potassium [Moles/Vol] 3.3 mmol/L Low 3.5-5.1 [facility] Comment on above: Result Comment: Slig ht Hemolysis, Result may be falsely increased. Performed By: #### L 100.0100, L500.2500 ####[facility] [address] [place], [address] Sodium [Moles/Vol] 139 mmol/L Normal 136-145 [facility] Comment on above: Performed By: #### L 100.0100, L500.2500 ####[facility] [address] [place], [address] Urea nitrogen [Mass/Vol] 17 mg/dL Normal 7-18 [facility] Comment on above: Performed By: #### L 100.0100, L500.2500 ####[facility] [address] [place], [address] CBC W/Diff, Automatedon 08-3 0-2024 Absolute Lymph 4.90 X10 3/uL High 0.83-4.51 [facility] Comment on above: Performed By: #### L 100.0100, L500.2500 ####[facility] [address] [place], [address] Absolute Neut 5.4 X10 3/uL Normal 2.0-7.7 [facility] Comment on above: Performed By: #### L 100.0100, L500.2500 ####[facility] [address] [place], [address] Basophils/100 WBC (Bld) 0.5 % Normal 0-1 [facility] Comment on above: Performed By: #### L 100.0100, L500.2500 ####[facility] [address] [place], [address] Eosinophils/100 WBC (Bld) 1.9 % Normal 0-5 [facility] Comment on above: Performed By: #### L 100.0100, L500.2500 ####[facility] [address] [place], [address] Erythrocyte distribution width (RBC) [Ratio] 14.0 % Normal 11.6-14.6 [facility] Comment on above: Performed By: #### L 100.0100, L500.2500 ####[facility] [address] [place], [address] Hematocrit (Bld) [Volume fraction] 41.7 % Normal 37-47 [facility] Comment on above: Performed By: #### L 100.0100, L500.2500 ####[facility] [address] [place], [address] Hemoglobin (Bld) [Mass/Vol] 14.4 g/dL Normal 12.0-15.0 [facility] Comment on above: Performed By: #### L 100.0100, L500.2500 ####[facility] [address] [place], [address] IG% 0.400 Normal 0.0-0.9 [facility] Comment on above: Result Comment: IG% - Immature Granulocytes (promyelocytes, myelocytes andmetamyelocytes) > 1% indicates that a LEFT SHIFT is Present. Performed By: #### L 100.0100, L500.2500 ####[facility] [address] [place], [address] Lymphocytes/100 WBC (Bld) 43.6 % High 19-41 [facility] Comment on above: Performed By: #### L 100.0100, L500.2500 ####[facility] [address] [place], [address] MCH (RBC) [Entitic mass] 28.3 pg Normal 27.0-32.0 [facility] Comment on above: Performed By: #### L 100.0100, L500.2500 ####[facility] [address] [place], [address] MCHC (RBC) [Mass/Vol] 34.5 g/dL Normal 32-36 [facility] Comment on above: Performed By: #### L 100.0100, L500.2500 ####[facility] [address] [place], [address] MCV (RBC) [Entitic vol] 82.1 fL Normal 81-99 [facility] Comment on above: Performed By: #### L 100.0100, L500.2500 ####[facility] [address] [place], [address] Monocytes/100 WBC (Bld) 6.0 % Normal 0-10 [facility] Comment on above: Performed By: #### L 100.0100, L500.2500 ####[facility] [address] [place], [address] Neutrophils/100 WBC (Bld) 47.6 % Normal 47-70 [facility] Comment on above: Performed By: #### L 100.0100, L500.2500 ####[facility] [address] [place], [address] Nucleated RBC (Bld) [#/Vol] 0 10*3/uL Normal 0-5 [facility] Comment on above: Performed By: #### L 100.0100, L500.2500 ####[facility] [address] [place], [address] Platelet mean volume (Bld) [Entitic vol] 9.8 fL Normal 6.2-12.0 [facility] Comment on above: Performed By: #### L 100.0100, L500.2500 ####[facility] [address] [place], [address] Platelets (Bld) [#/Vol] 315 10*3/uL Normal 150-450 [facility] Comment on above: Performed By: #### L 100.0100, L500.2500 ####[facility] [address] [place], [address] RBC (Bld) [#/Vol] 5.08 10*6/uL Normal 4.2-5.4 [facility] Comment on above: Performed By: #### L 100.0100, L500.2500 ####[facility] [address] [place], [address] RDW SD 41.3 fl Normal 35.1-43.9 [facility] Comment on above: Performed By: #### L 100.0100, L500.2500 ####[facility] [address] [place], [address] WBC (Bld) [#/Vol] 11.3 10*3/uL High 4.4-11.0 [facility] Comment on above: Performed By: #### L 100.0100, L500.2500 ####[facility] [address] [place], [address] Emergency Department Summary on 05-08-2024 Emergency Department Summary Normal [facility] Urinalysis, Completeon 05-08 EPI,RENAL 0-5 SEEN Normal 0-5 [facility] Comment on above: Order Comment: ISHMAEL CTOR TO SPECIFY Performed By: #### L 400.0001 ####[facility] [address] [place], [address] EPI,SQUAMOUS 5-10 SEEN Normal 5-10 [facility] Comment on above: Order Comment: ISHMAEL CTOR TO SPECIFY Performed By: #### L 400.0001 ####[facility] [address] [place], [address] RBC 0-5 SEEN Normal 0-5 [facility] Comment on above: Order Comment: ISHMAEL CTOR TO SPECIFY Performed By: #### L 400.0001 ####[facility] [address] [place], [address] WBC 10-25 SEEN Normal 0-5 [facility] Comment on above: Order Comment: ISHMAEL CTOR TO SPECIFY Performed By: #### L 400.0001 ####[facility] [address] [place], [address] BACTERIA 0 SEEN Normal None Seen [facility] Comment on above: Order Comment: ISHMAEL CTOR TO SPECIFY Performed By: #### L 400.0001 ####[facility] [address] [place], [address] Mucus Ql (Urine sed) 0 SEEN Normal [facility] Comment on above: Order Comment: ISHMAEL SUGGSOR TO SPECIFY Performed By: #### L 400.0001 ####[facility] [address] [place], [address] CNOVon 05-07-2024 CNOV Normal [facility] CNPTOUTREACHon 04-28-2024 CNPTOUTREACH Normal [facility] CNOVon 04-20-2024 CNOV Normal [facility] CNPTOUTREACHon 04-09-2024 CNPTOUTREACH Normal [facility] Bacteria identified Cx Nom ( U)Ordered By: Monica Stewart on 04-01-2024 [facility] URINE CULTUREOrdered By: Marbella Stewart on 04-01-2024 Bacteria identified Cx Nom (U) <10,000 CFU/ml Normal urogenital bill [facility] CNPNon 03-31-2024 CNPN Normal [facility] Urinalysis complete panel (U )on 03-31-2024 Bacteria LM.HPF (Urine sed) [#/Area] Negative Negative /HPF [facility] Bilirubin Ql (U) Negative Negative [facility] Clarity (Unsp spec) Clear Clear [facility] Color (U) Yellow Yellow [facility] Epithelial cells LM.HPF (Urine sed) [#/Area] Few /HPF [facility] Glucose Test strip (U) [Mass/Vol] Negative Negative [facility] Hemoglobin Ql (U) Negative Negative [facility] Hyaline casts (Urine sed) [#/Area] 1-3 /LPF Abnormal 0 /LPF [facility] Interpretation and review of laboratory results Abnormal [facility] Ketones Ql (U) Negative Negative [facility] Leukocyte esterase Test strip Ql (U) Negative Negative [facility] Nitrite Ql (U) Negative Negative [facility] pH (U) 5.5 [pH] NINF - 8.5 [facility] Protein (U) [Mass/Vol] Negative Negative [facility] RBC LM.HPF (Urine sed) [#/Area] 0-2 /HPF 0-2 /HPF [facility] Specific gravity (U) [Rel density] 1.018 1.005 - 1.030 [facility] Urobilinogen Ql (U) 0.2 EU/dL 0.2-1.0 EU/dL [facility] WBC LM.HPF (Urine sed) [#/Area] 0-5 /HPF 0-5 /HPF [facility] [facility] This test was develo ped and its performance characteristics determined by [facility]'s [facility] Pathology and Laboratory Medicine [place] ([facility]). It has not been cleared or approved by the FDA. -[facility] is regulated under CLIA as qualified to perform high-complexity testing. This test is used for clinical purposes. It should not be regarded as investigational or for research. [facility] Bacteria Ur Culton 4 Bacteria identified Cx Nom (U) ORGANISM ID: 1 <10,000 CFU/ml Normal urogenital bill Normal [facility] Comment on above: Performed By: #### 6 30-4 ####[facility] LABCLIA [id number] [place] [address] [place] CNOVon 03-30-2024 CNOV Normal [facility] Urinalysis complete panel (U )on 03-30-2024 Bacteria LM.HPF (Urine sed) [#/Area] Negative Normal Negative [facility] Comment on above: Order Comment: Speci men Type: URINE SPECIMENOrdering Facility: [facility] Address: [address] [place] [address] Performed By: #### 2 4356-8 ####[facility] LABCLIA [id number] [place] [address] [place] Bilirubin Ql (U) Negative Normal Negative [facility] Comment on above: Order Comment: Speci men Type: URINE SPECIMENOrdering Facility: [facility] Address: [address] [place] [address] Performed By: #### 2 4356-8 ####[facility] LABCLIA [id number] [place] [address] [place] Clarity (Unsp spec) Clear Normal Clear [facility] Comment on above: Order Comment: Speci men Type: URINE SPECIMENOrdering Facility: [facility] Address: [address] [place] [address] Performed By: #### 2 4356-8 ####[facility] LABCLIA [id number] [place] [address] [place] Color (U) Yellow Normal Yellow [facility] Comment on above: Order Comment: Speci men Type: URINE SPECIMENOrdering Facility: [facility] Address: [address] [place] [address] Performed By: #### 2 4356-8 ####[facility] LABCLIA [id number] [place] [address] [place] Epithelial cells LM.HPF (Urine sed) [#/Area] Few Normal [facility] Comment on above: Order Comment: Speci men Type: URINE SPECIMENOrdering Facility: [facility] Address: [address] [place] [address] Performed By: #### 2 4356-8 ####[facility] LABCLIA [id number] [place] [address] [place] Glucose Test strip (U) [Mass/Vol] Negative Normal Negative [facility] Comment on above: Order Comment: Speci men Type: URINE SPECIMENOrdering Facility: [facility] Address: [address] [place] [address] Performed By: #### 2 4356-8 ####[facility] LABCLIA [id number] [place] [address] [place] Hemoglobin Ql (U) Negative Normal Negative [facility] Comment on above: Order Comment: Speci men Type: URINE SPECIMENOrdering Facility: [facility] Address: [address] [place] [address] Performed By: #### 2 4356-8 ####[facility] LABCLIA [id number] [place] [address] [place] Hyaline casts (Urine sed) [#/Area] 1-3 /LPF Abnormal 0 /LPF [facility] Comment on above: Order Comment: Speci men Type: URINE SPECIMENOrdering Facility: [facility] Address: [address] [place] [address] Performed By: #### 2 4356-8 ####[facility] LABCLIA [id number] [place] [address] [place] Ketones Ql (U) Negative Normal Negative [facility] Comment on above: Order Comment: Speci men Type: URINE SPECIMENOrdering Facility: [facility] Address: [address] [place] [address] Performed By: #### 2 4356-8 ####[facility] LABCLIA [id number] [place] [address] [place] Leukocyte esterase Test strip Ql (U) Negative Normal Negative [facility] Comment on above: Order Comment: Speci men Type: URINE SPECIMENOrdering Facility: [facility] Address: [address] [place] [address] Performed By: #### 2 4356-8 ####[facility] LABCLIA [id number] [place] [address] [place] Nitrite Ql (U) Negative Normal Negative [facility] Comment on above: Order Comment: Speci men Type: URINE SPECIMENOrdering Facility: [facility] Address: [address] [place] [address] Performed By: #### 2 4356-8 ####[facility] LABCLIA [id number] [place] [address] [place] pH (U) 5.5 [pH] Normal <8.5 [facility] Comment on above: Order Comment: Speci men Type: URINE SPECIMENOrdering Facility: [facility] Address: [address] [place] [address] Performed By: #### 2 4356-8 ####[facility] LABCLIA [id number] [place] [address] [place] Protein (U) [Mass/Vol] Negative Normal Negative [facility] Comment on above: Order Comment: Speci men Type: URINE SPECIMENOrdering Facility: [facility] Address: [address] [place] [address] Performed By: #### 2 4356-8 ####[facility] LABIA [id number] [place] [address] [place] RBC LM.HPF (Urine sed) [#/Area] 0-2 /HPF Normal 0-2 /HPF [facility] Comment on above: Order Comment: Speci men Type: URINE SPECIMENOrdering Facility: [facility] Address: [address] [place] [address] Performed By: #### 2 4356-8 ####[facility] LABIA [id number] [place] [address] [place] Specific gravity (U) [Rel density] 1.018 Normal 1.005-1.030 [facility] Comment on above: Order Comment: Speci men Type: URINE SPECIMENOrdering Facility: [facility] Address: [address] [place] [address] Performed By: #### 2 4356-8 ####[facility] LABIA [id number] [place] [address] [place] Urobilinogen Ql (U) 0.2 EU/dL Normal 0.2-1.0 EU/dL [facility] Comment on above: Order Comment: Speci men Type: URINE SPECIMENOrdering Facility: [facility] Address: [address] [place] [address] Performed By: #### 2 4356-8 ####[facility] LABIA [id number] [place] [address] [place] WBC LM.HPF (Urine sed) [#/Area] 0-5 /HPF Normal 0-5 /HPF [facility] Comment on above: Order Comment: Speci men Type: URINE SPECIMENOrdering Facility: [facility] Address: [address], [place] [address] Performed By: #### 2 4356-8 ####[facility] LABCLIA [id number] [address] [place] [address] [place] CNPTOUTREACHon 03-26-2024 CNPTOUTREACH Normal [facility] Culture, Blood (WB)on 2023 CUB Blood cultures x2 fr om two different sites No growth in 5 days. Normal [facility] Comment on above: Performed By: #### M 200.1000 ####[facility] [address] [place], [address] 12 Lead EKGon 03-24-2024 12 Lead EKG Normal [facility] Bedside Glucoseon 03-24-2024 FINGERSTICK GLU 143 mg/dL High 74-106 [facility] Comment on above: Result Comment: JAIME CARREON OF PATIENT CARE PER NURSING PROTOCOL Performed By: #### L 501.080 ####[facility] [address] [place], [address] Basic Metabolic Profile (BMP )on 03-23-2024 BUN/CRE 13.9 RATIO Normal 10-20 [facility] Comment on above: Performed By: #### L 500.2500, L100.0100 ####[facility] [address] [place], [address] CA,Total 8.3 mg/dL Low 8.5-10.1 [facility] Comment on above: Performed By: #### L 500.2500, L100.0100 ####[facility] [address] [place], [address] Chloride [Moles/Vol] 110 mmol/L High 98-107 [facility] Comment on above: Performed By: #### L 500.2500, L100.0100 ####[facility] [address] [place], [address] CO2 [Moles/Vol] 24.0 mmol/L Normal 21.0-32.0 [facility] Comment on above: Performed By: #### L 500.2500, L100.0100 ####[facility] [address] [place], [address] Creatinine [Mass/Vol] 0.58 mg/dL Normal 0.55-1.02 [facility] Comment on above: Result Comment: The validity of the calculated GFR GFRAA in patients over70 years has not been determined. Clinical correlation isessential. Performed By: #### L 500.2500, L100.0100 ####[facility] [address] [place], [address] ECRCL 112.12 ml/min Normal [facility] Comment on above: Performed By: #### L 500.2500, L100.0100 ####[facility] [address] [place], [address] EST GFR - AA 136 mL/min Normal >60 [facility] Comment on above: Result Comment: Afri can [place] GFR Calc Performed By: #### L 500.2500, L100.0100 ####[facility] [address] [place], [address] GAP 4 Low 5-15 [facility] Comment on above: Performed By: #### L 500.2500, L100.0100 ####[facility] [address] [place], [address] GFR/1.73 sq M.predicted among non-blacks MDRD (S/P/Bld) [Vol rate/Area] 112 mL/min/{1.73_m2} Normal >60 [facility] Comment on above: Result Comment: Non- GFR Calc Performed By: #### L 500.2500, L100.0100 ####[facility] [address] [place], [address] Glucose [Mass/Vol] 149 mg/dL High 74-106 [facility] Comment on above: Result Comment: Fast ing Glucose result greater than or equal to 126 mg/dLsuggests DIABETES MELLITUS per A.D.A. criteria. Performed By: #### L 500.2500, L100.0100 ####[facility] [address] [place], [address] Potassium [Moles/Vol] 3.8 mmol/L Normal 3.5-5.1 [facility] Comment on above: Performed By: #### L 500.2500, L100.0100 ####[facility] [address] [place], [address] Sodium [Moles/Vol] 138 mmol/L Normal 136-145 [facility] Comment on above: Performed By: #### L 500.2500, L100.0100 ####[facility] [address] [place], [address] Urea nitrogen [Mass/Vol] 8 mg/dL Normal 7-18 [facility] Comment on above: Performed By: #### L 500.2500, L100.0100 ####[facility] [address] [place], [address] Bedside Glucoseon 03-23-2024 FINGERSTICK GLU 181 mg/dL High [address] [place] [address] Comment on above: Result Comment: JAIME GEMENT OF PATIENT CARE PER NURSING PROTOCOL Performed By: #### L 501.080 ####[facility] [address] [place], [address] FINGERSTICK GLU 250 mg/dL [address] Comment on above: Result Comment: JAIME GEMENT OF PATIENT CARE PER NURSING PROTOCOL Performed By: #### L 501.080 ####[facility] [address] [place], [address] FINGERSTICK GLU 266 mg/dL High 74-106 [facility] Comment on above: Result Comment: JAIME GEMENT OF PATIENT CARE PER NURSING PROTOCOL Performed By: #### L 501.080 ####[facility] [address] [place], [address] FINGERSTICK GLU 216 mg/dL High 74-106 [facility] Comment on above: Result Comment: JAIME GEMENT OF PATIENT CARE PER NURSING PROTOCOL Performed By: #### L 501.080 ####[facility] [address] [place], [address] FINGERSTICK GLU 151 mg/dL High 74-106 [facility] Comment on above: Result Comment: JAIME GEMENT OF PATIENT CARE PER NURSING PROTOCOL Performed By: #### L 501.080 ####[facility] [address] [place], [address] CBC W/Diff, Automatedon 07- Absolute Lymph 2.43 X10 3/uL Normal 0.83-4.51 [facility] Comment on above: Performed By: #### L 500.2500, L100.0100 ####[facility] [address] [place], [address] Absolute Neut 3.1 X10 3/uL Normal 2.0-7.7 [facility] Comment on above: Performed By: #### L 500.2500, L100.0100 ####[facility] [address] [place], [address] Basophils/100 WBC (Bld) 0.2 % Normal 0-1 [facility] Comment on above: Performed By: #### L 500.2500, L100.0100 ####[facility] [address] [place], [address] Eosinophils/100 WBC (Bld) 5.7 % High 0-5 [facility] Comment on above: Performed By: #### L 500.2500, L100.0100 ####[facility] [address] [place], [address] Erythrocyte distribution width (RBC) [Ratio] 12.6 % Normal 11.6-14.6 [facility] Comment on above: Performed By: #### L 500.2500, L100.0100 ####[facility] [address] [place], [address] Hematocrit (Bld) [Volume fraction] 39.8 % Normal 37-47 [facility] Comment on above: Performed By: #### L 500.2500, L100.0100 ####[facility] [address] [place], [address] Hemoglobin (Bld) [Mass/Vol] 13.3 g/dL Normal 12.0-15.0 [facility] Comment on above: Performed By: #### L 500.2500, L100.0100 ####[facility] [address] [place], [address] IG% 0.200 Normal 0.0-0.9 [facility] Comment on above: Result Comment: IG% - Immature Granulocytes (promyelocytes, myelocytes andmetamyelocytes) > 1% indicates that a LEFT SHIFT is Present. Performed By: #### L 500.2500, L100.0100 ####[facility] [address] [place], [address] Lymphocytes/100 WBC (Bld) 38.4 % Normal 19-41 [facility] Comment on above: Performed By: #### L 500.2500, L100.0100 ####[facility] [address] [place], [address] MCH (RBC) [Entitic mass] 27.7 pg Normal 27.0-32.0 [facility] Comment on above: Performed By: #### L 500.2500, L100.0100 ####[facility] [address] [place], [address] MCHC (RBC) [Mass/Vol] 33.4 g/dL Normal 32-36 [facility] Comment on above: Performed By: #### L 500.2500, L100.0100 ####[facility] [address] [place], [address] MCV (RBC) [Entitic vol] 82.9 fL Normal 81-99 [facility] Comment on above: Performed By: #### L 500.2500, L100.0100 ####[facility] [address] [place], [address] Monocytes/100 WBC (Bld) 6.0 % Normal 0-10 [facility] Comment on above: Performed By: #### L 500.2500, L100.0100 ####[facility] [address] [place], [address] Neutrophils/100 WBC (Bld) 49.5 % Normal 47-70 [facility] Comment on above: Performed By: #### L 500.2500, L100.0100 ####[facility] [address] [place], [address] Nucleated RBC (Bld) [#/Vol] 0 10*3/uL Normal 0-5 [facility] Comment on above: Performed By: #### L 500.2500, L100.0100 ####[facility] [address] [place], [address] Platelet mean volume (Bld) [Entitic vol] 10.1 fL Normal 6.2-12.0 [facility] Comment on above: Performed By: #### L 500.2500, L100.0100 ####[facility] [address] [place], [address] Platelets (Bld) [#/Vol] 238 10*3/uL Normal 150-450 [facility] Comment on above: Performed By: #### L 500.2500, L100.0100 ####[facility] [address] [place], [address] RBC (Bld) [#/Vol] 4.80 10*6/uL Normal 4.2-5.4 [facility] Comment on above: Performed By: #### L 500.2500, L100.0100 ####[facility] [address] [place], [address] RDW SD 38.3 fl Normal 35.1-43.9 [facility] Comment on above: Performed By: #### L 500.2500, L100.0100 ####[facility] [address] [place], [address] WBC (Bld) [#/Vol] 6.3 10*3/uL Normal 4.4-11.0 [facility] Comment on above: Performed By: #### L 500.2500, L100.0100 ####[facility] [address] [place], [address] CNPNon 03-23-2024 CNPN Normal [facility] CTA Chest W/WO Contraston CTA Chest W/WO Contrast Normal [facility] Gram Stainon 03-23-2024 GS List Antibiotics Las t 48 Hours? Levaquin Acceptable Specimen? Yes (<25 Epithelial cells per/lpf) Gram Stain 2+ Gram negative rods 2+ Gram positive cocci 1+ White Blood Cells Rare Epithelial cells Normal [facility] Comment on above: Performed By: #### M 100.2400, ####[facility] [address] [place], [address] Respiratory Cultureon 2023 RESPC List Antibiotics Las t 48 Hours? Levaquin Mixed normal respiratory bill. No Streptococcus pneumoniae, beta-hemolytic Streptococcus or Staphylococcus aureus isolated. Normal [facility] Comment on above: Performed By: #### M 100.2400, M1 ####[facility] [address] [place], [address] Basic Metabolic Profile (BMP )on 03-22-2024 BUN/CRE 19.9 RATIO Normal 10-20 [facility] Comment on above: Performed By: #### L 501.2300, L501.5200, L500.2500, L100.0100 ####[facility] [address] [place], [address] CA,Total 7.9 mg/dL Low 8.5-10.1 [facility] Comment on above: Performed By: #### L 501.2300, L501.5200, L500.2500, L100.0100 ####[facility] [address] [place], [address] Chloride [Moles/Vol] 107 mmol/L Normal 98-107 [facility] Comment on above: Performed By: #### L 501.2300, L501.5200, L500.2500, L100.0100 ####[facility] [address] [place], [address] CO2 [Moles/Vol] 26.0 mmol/L Normal 21.0-32.0 [facility] Comment on above: Performed By: #### L 501.2300, L501.5200, L500.2500, L100.0100 ####[facility] [address] [place], [address] Creatinine [Mass/Vol] 0.60 mg/dL Normal 0.55-1.02 [facility] Comment on above: Result Comment: The validity of the calculated GFR GFRAA in patients over70 years has not been determined. Clinical correlation isessential. Performed By: #### L 501.2300, L501.5200, L500.2500, L100.0100 ####[facility] [address] [place], [address] ECRCL 108.39 ml/min Normal [facility] Comment on above: Performed By: #### L 501.2300, L501.5200, L500.2500, L100.0100 ####[facility] [address] [place], [address] EST GFR - AA 129 mL/min Normal >60 [facility] Comment on above: Result Comment: Afri can Libyan GFR Calc Performed By: #### L 501.2300, L501.5200, L500.2500, L100.0100 ####[facility] [address] [place], [address] GAP 5 Normal 5-15 [facility] Comment on above: Performed By: #### L 501.2300, L501.5200, L500.2500, L100.0100 ####[facility] [address] [place], [address] GFR/1.73 sq M.predicted among non-blacks MDRD (S/P/Bld) [Vol rate/Area] 107 mL/min/{1.73_m2} Normal >60 [facility] Comment on above: Result Comment: Non- GFR Calc Performed By: #### L 501.2300, L501.5200, L500.2500, L100.0100 ####[facility] [address] [place], [address] Glucose [Mass/Vol] 172 mg/dL High 74-106 [facility] Comment on above: Result Comment: Fast ing Glucose result greater than or equal to 126 mg/dLsuggests DIABETES MELLITUS per A.D.A. criteria. Performed By: #### L 501.2300, L501.5200, L500.2500, L100.0100 ####[facility] [address] [place], [address] Potassium [Moles/Vol] 3.3 mmol/L Low 3.5-5.1 [facility] Comment on above: Performed By: #### L 501.2300, L501.5200, L500.2500, L100.0100 ####[facility] [address] [place], [address] Sodium [Moles/Vol] 138 mmol/L Normal 136-145 [facility] Comment on above: Performed By: #### L 501.2300, L501.5200, L500.2500, L100.0100 ####[facility] [address] [place], [address] Urea nitrogen [Mass/Vol] 12 mg/dL Normal 7-18 [facility] Comment on above: Performed By: #### L 501.2300, L501.5200, L500.2500, L100.0100 ####[facility] [address] [place], [address] Bedside Glucoseon 03-22-2024 FINGERSTICK GLU 248 mg/dL High 74-106 [facility] Comment on above: Result Comment: JAIME GEMENT OF PATIENT CARE PER NURSING PROTOCOL Performed By: #### L 501.080 ####[facility] [address] [place], [address] FINGERSTICK GLU 220 mg/dL High 74-106 [facility] Comment on above: Result Comment: JAIME GEMENT OF PATIENT CARE PER NURSING PROTOCOL Performed By: #### L 501.080 ####[facility] [address] [place], [address] FINGERSTICK GLU 228 mg/dL High 74-106 [facility] Comment on above: Result Comment: JAIME GEMENT OF PATIENT CARE PER NURSING PROTOCOL Performed By: #### L 501.080 ####[facility] [address] [place], [address] FINGERSTICK GLU 174 mg/dL High 74-106 [facility] Comment on above: Result Comment: JAIME GEMENT OF PATIENT CARE PER NURSING PROTOCOL Performed By: #### L 501.080 ####[facility] [address] [place], [address] CBC W/Diff, Automatedon 07-09 12-2023 Absolute Lymph 1.63 X10 3/uL Normal 0.83-4.51 [facility] Comment on above: Performed By: #### L 501.2300, L501.5200, L500.2500, L100.0100 ####[facility] [address] [place], [address] Absolute Neut 7.8 X10 3/uL High 2.0-7.7 [facility] Comment on above: Performed By: #### L 501.2300, L501.5200, L500.2500, L100.0100 ####[facility] [address] [place], [address] Basophils/100 WBC (Bld) 0.1 % Normal 0-1 [facility] Comment on above: Performed By: #### L 501.2300, L501.5200, L500.2500, L100.0100 ####[facility] [address] [place], [address] Eosinophils/100 WBC (Bld) 1.6 % Normal 0-5 [facility] Comment on above: Performed By: #### L 501.2300, L501.5200, L500.2500, L100.0100 ####[facility] [address] [place], [address] Erythrocyte distribution width (RBC) [Ratio] 12.7 % Normal 11.6-14.6 [facility] Comment on above: Performed By: #### L 501.2300, L501.5200, L500.2500, L100.0100 ####[facility] [address] [place], [address] Hematocrit (Bld) [Volume fraction] 38.9 % Normal 37-47 [facility] Comment on above: Performed By: #### L 501.2300, L501.5200, L500.2500, L100.0100 ####[facility] [address] [place], [address] Hemoglobin (Bld) [Mass/Vol] 12.6 g/dL Normal 12.0-15.0 [facility] Comment on above: Performed By: #### L 501.2300, L501.5200, L500.2500, L100.0100 ####[facility] [address] [place], [address] IG% 0.400 Normal 0.0-0.9 [facility] Comment on above: Result Comment: IG% - Immature Granulocytes (promyelocytes, myelocytes andmetamyelocytes) > 1% indicates that a LEFT SHIFT is Present. Performed By: #### L 501.2300, L501.5200, L500.2500, L100.0100 ####[facility] [address] [place], [address] Lymphocytes/100 WBC (Bld) 15.9 % Low 19-41 [facility] Comment on above: Performed By: #### L 501.2300, L501.5200, L500.2500, L100.0100 ####[facility] [address] [place], [address] MCH (RBC) [Entitic mass] 27.5 pg Normal 27.0-32.0 [facility] Comment on above: Performed By: #### L 501.2300, L501.5200, L500.2500, L100.0100 ####[facility] [address] [place], [address] MCHC (RBC) [Mass/Vol] 32.4 g/dL Normal 32-36 [facility] Comment on above: Performed By: #### L 501.2300, L501.5200, L500.2500, L100.0100 ####[facility] [address] [place], [address] MCV (RBC) [Entitic vol] 84.9 fL Normal 81-99 [facility] Comment on above: Performed By: #### L 501.2300, L501.5200, L500.2500, L100.0100 ####[facility] [address] [place], [address] Monocytes/100 WBC (Bld) 5.6 % Normal 0-10 [facility] Comment on above: Performed By: #### L 501.2300, L501.5200, L500.2500, L100.0100 ####[facility] [address] [place], [address] Neutrophils/100 WBC (Bld) 76.4 % High 47-70 [facility] Comment on above: Performed By: #### L 501.2300, L501.5200, L500.2500, L100.0100 ####[facility] [address] [place], [address] Nucleated RBC (Bld) [#/Vol] 0 10*3/uL Normal 0-5 [facility] Comment on above: Performed By: #### L 501.2300, L501.5200, L500.2500, L100.0100 ####[facility] [address] [place], [address] Platelet mean volume (Bld) [Entitic vol] 10.6 fL Normal 6.2-12.0 [facility] Comment on above: Performed By: #### L 501.2300, L501.5200, L500.2500, L100.0100 ####[facility] [address] [place], [address] Platelets (Bld) [#/Vol] 227 10*3/uL Normal 150-450 [facility] Comment on above: Performed By: #### L 501.2300, L501.5200, L500.2500, L100.0100 ####[facility] [address] [place], [address] RBC (Bld) [#/Vol] 4.58 10*6/uL Normal 4.2-5.4 [facility] Comment on above: Performed By: #### L 501.2300, L501.5200, L500.2500, L100.0100 ####[facility] [address] [place], [address] RDW SD 38.3 fl Normal 35.1-43.9 [facility] Comment on above: Performed By: #### L 501.2300, L501.5200, L500.2500, L100.0100 ####[facility] [address] [place], [address] WBC (Bld) [#/Vol] 10.3 10*3/uL Normal 4.4-11.0 [facility] Comment on above: Performed By: #### L 501.2300, L501.5200, L500.2500, L100.0100 ####[facility] [address] [place], [address] D-Dimer Quantitative (DVT/PE )on 03-22-2024 D-DIMER QUANT 1.56 FEU/ug/m Invalid Interpretation Code 0.27-0.49 [facility] Comment on above: Result Comment: D-Di riley ELEVATED (>0.49): Additional studies and clinicalassessments are indicated to conclude diagnosis of:Deep Vein Thrombosis (DVT) or Pulmonary Embolism (PE)CRITICAL VALUE VERIFIED. CALLED TO PRINCESS GARCIA03/22/24 Brandon Stanley.RESULTS READ BACK BY SAME . Performed By: #### L 300.8000 ####[facility] [address] [place], [address] Legionella Antigen Urineon 0 03-22-2024 LEGU Normal [facility] Comment on above: Performed By: #### M 300.4500, M300.4600 ####[facility] [address] [place], [address] Magnesiumon 03-22-2024 Magnesium [Mass/Vol] 1.7 mg/dL Normal 1.6-2.6 [facility] Comment on above: Performed By: #### L 501.2300, L501.5200, L500.2500, L100.0100 ####[facility] [address] [place], [address] Phosphoruson 03-22-2024 Phosphate [Mass/Vol] 2.1 mg/dL Low 2.5-4.9 [facility] Comment on above: Performed By: #### L 501.2300, L501.5200, L500.2500, L100.0100 ####[facility] [address] [place], [address] Strep pneumoniae Antig(UR,CS F)on 03-22-2024 STPAG Normal [facility] Comment on above: Performed By: #### M 300.4500, M300.4600 ####[facility] [address] 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, [address] Abdomen/Pelvis W IV Cont ONL Yon 03-21-2024 Abdomen/Pelvis W IV Cont ONLY Normal [facility] Basic Metabolic Profile (BMP )on 03-21-2024 BUN/CRE 18.9 RATIO Normal 10-20 [facility] Comment on above: Performed By: #### L 500.2500, L503.6005, L500.3400, L100.0100 ####[facility] [address] [place], [address] CA,Total 9.5 mg/dL Normal 8.5-10.1 [facility] Comment on above: Performed By: #### L 500.2500, L503.6005, L500.3400, L100.0100 ####[facility] [address] [place], [address] Chloride [Moles/Vol] 98 mmol/L Normal 98-107 [facility] Comment on above: Performed By: #### L 500.2500, L503.6005, L500.3400, L100.0100 ####[facility] [address] [place], [address] CO2 [Moles/Vol] 23.0 mmol/L Normal 21.0-32.0 [facility] Comment on above: Performed By: #### L 500.2500, L503.6005, L500.3400, L100.0100 ####[facility] [address] [place], [address] Creatinine [Mass/Vol] 1.06 mg/dL High 0.55-1.02 [facility] Comment on above: Result Comment: The validity of the calculated GFR GFRAA in patients over70 years has not been determined. Clinical correlation isessential. Performed By: #### L 500.2500, L503.6005, L500.3400, L100.0100 ####[facility] [address] [place], [address] ECRCL 61.66 ml/min Normal [facility] Comment on above: Performed By: #### L 500.2500, L503.6005, L500.3400, L100.0100 ####[facility] [address] [place], [address] EST GFR - AA 67 mL/min Normal >60 [facility] Comment on above: Result Comment: Afri can Libyan GFR Calc Performed By: #### L 500.2500, L503.6005, L500.3400, L100.0100 ####[facility] [address] [place], [address] GAP 12 Normal 5-15 [facility] Comment on above: Performed By: #### L 500.2500, L503.6005, L500.3400, L100.0100 ####[facility] [address] [place], [address] GFR/1.73 sq M.predicted among non-blacks MDRD (S/P/Bld) [Vol rate/Area] 56 mL/min/{1.73_m2} Low >60 [facility] Comment on above: Result Comment: Non- GFR Calc Performed By: #### L 500.2500, L503.6005, L500.3400, L100.0100 ####[facility] [address] [place], [address] Glucose [Mass/Vol] 266 mg/dL High 74-106 [facility] Comment on above: Result Comment: Gluc ose result greater than or equal to 200 mg/dLsuggests DIABETES MELLITUS per A.D.A. criteria. Performed By: #### L 500.2500, L503.6005, L500.3400, L100.0100 ####[facility] [address] [place], [address] Potassium [Moles/Vol] 3.1 mmol/L Low 3.5-5.1 [facility] Comment on above: Performed By: #### L 500.2500, L503.6005, L500.3400, L100.0100 ####[facility] [address] [place], [address] Sodium [Moles/Vol] 133 mmol/L Low 136-145 [facility] Comment on above: Performed By: #### L 500.2500, L503.6005, L500.3400, L100.0100 ####[facility] [address] [place], [address] Urea nitrogen [Mass/Vol] 20 mg/dL High 7-18 [facility] Comment on above: Performed By: #### L 500.2500, L503.6005, L500.3400, L100.0100 ####[facility] [address] [place], [address] Bedside Glucoseon 03-21-2024 FINGERSTICK GLU 190 mg/dL High 74-106 [facility] Comment on above: Result Comment: JAIME GEMENT OF PATIENT CARE PER NURSING PROTOCOL Performed By: #### L 501.080 ####[facility] [address] [place], [address] FINGERSTICK GLU 220 mg/dL High 74-106 [facility] Comment on above: Result Comment: JAIME GEMENT OF PATIENT CARE PER NURSING PROTOCOL Performed By: #### L 501.080 ####[facility] [address] [place], [address] CBC W/Diff, Automatedon - Absolute Lymph 0.69 X10 3/uL Low 0.83-4.51 [facility] Comment on above: Performed By: #### L 500.2500, L503.6005, L500.3400, L100.0100 ####[facility] [address] [place], [address] Absolute Neut 16.5 X10 3/uL High 2.0-7.7 [facility] Comment on above: Performed By: #### L 500.2500, L503.6005, L500.3400, L100.0100 ####[facility] [address] [place], [address] Basophils/100 WBC (Bld) 0.3 % Normal 0-1 [facility] Comment on above: Performed By: #### L 500.2500, L503.6005, L500.3400, L100.0100 ####[facility] [address] [place], [address] Eosinophils/100 WBC (Bld) 0.2 % Normal 0-5 [facility] Comment on above: Performed By: #### L 500.2500, L503.6005, L500.3400, L100.0100 ####[facility] [address] [place], [address] Erythrocyte distribution width (RBC) [Ratio] 12.4 % Normal 11.6-14.6 [facility] Comment on above: Performed By: #### L 500.2500, L503.6005, L500.3400, L100.0100 ####[facility] [address] [place], [address] Hematocrit (Bld) [Volume fraction] 45.9 % Normal 37-47 [facility] Comment on above: Performed By: #### L 500.2500, L503.6005, L500.3400, L100.0100 ####[facility] [address] [place], [address] Hemoglobin (Bld) [Mass/Vol] 15.4 g/dL High 12.0-15.0 [facility] Comment on above: Performed By: #### L 500.2500, L503.6005, L500.3400, L100.0100 ####[facility] [address] [place], [address] IG% 0.600 Normal 0.0-0.9 [facility] Comment on above: Result Comment: IG% - Immature Granulocytes (promyelocytes, myelocytes andmetamyelocytes) > 1% indicates that a LEFT SHIFT is Present. Performed By: #### L 500.2500, L503.6005, L500.3400, L100.0100 ####[facility] [address] [place], [address] Lymphocytes/100 WBC (Bld) 3.9 % Low 19-41 [facility] Comment on above: Performed By: #### L 500.2500, L503.6005, L500.3400, L100.0100 ####[facility] [address] [place], [address] MCH (RBC) [Entitic mass] 27.5 pg Normal 27.0-32.0 [facility] Comment on above: Performed By: #### L 500.2500, L503.6005, L500.3400, L100.0100 ####[facility] [address] [place], [address] MCHC (RBC) [Mass/Vol] 33.6 g/dL Normal 32-36 [facility] Comment on above: Performed By: #### L 500.2500, L503.6005, L500.3400, L100.0100 ####[facility] [address] [place], [address] MCV (RBC) [Entitic vol] 82.1 fL Normal 81-99 [facility] Comment on above: Performed By: #### L 500.2500, L503.6005, L500.3400, L100.0100 ####[facility] [address] [place], [address] Monocytes/100 WBC (Bld) 2.4 % Normal 0-10 [facility] Comment on above: Performed By: #### L 500.2500, L503.6005, L500.3400, L100.0100 ####[facility] [address] [place], [address] Neutrophils/100 WBC (Bld) 92.6 % High 47-70 [facility] Comment on above: Performed By: #### L 500.2500, L503.6005, L500.3400, L100.0100 ####[facility] [address] [place], [address] Nucleated RBC (Bld) [#/Vol] 0 10*3/uL Normal 0-5 [facility] Comment on above: Performed By: #### L 500.2500, L503.6005, L500.3400, L100.0100 ####[facility] [address] [place], [address] Platelet mean volume (Bld) [Entitic vol] 11.2 fL Normal 6.2-12.0 [facility] Comment on above: Performed By: #### L 500.2500, L503.6005, L500.3400, L100.0100 ####[facility] [address] [place], [address] Platelets (Bld) [#/Vol] 306 10*3/uL Normal 150-450 [facility] Comment on above: Performed By: #### L 500.2500, L503.6005, L500.3400, L100.0100 ####[facility] [address] [place], [address] RBC (Bld) [#/Vol] 5.59 10*6/uL High 4.2-5.4 [facility] Comment on above: Performed By: #### L 500.2500, L503.6005, L500.3400, L100.0100 ####[facility] [address] [place], [address] RDW SD 37.2 fl Normal 35.1-43.9 [facility] Comment on above: Performed By: #### L 500.2500, L503.6005, L500.3400, L100.0100 ####[facility] [address] [place], [address] WBC (Bld) [#/Vol] 17.8 10*3/uL High 4.4-11.0 [facility] Comment on above: Performed By: #### L 500.2500, L503.6005, L500.3400, L100.0100 ####[facility] [address] [place], [address] CTA Chest W/WO Contraston CTA Chest W/WO Contrast Normal [facility] Chest 1 View (Portable)on Chest 1 View (Portable) Normal [facility] Echo Completeon 03-21-2024 Echo Complete Normal [facility] Emergency Department Summary on 03-21-2024 Emergency Department Summary Normal [facility] H AND P Exam - Hospitaliston 03-21-2024 H&P Exam - Hospitalist Normal [facility] L501.4020on 03-21-2024 TROPONIN-I HS 5 pg/mL Normal 3.0-54.0 [facility] Comment on above: Order Comment: 'TROP ' Serial specimen #1, #2 or #3: 1 Result Comment: Melissa liu Note: New Test Units and Gender Specific Reference Ranges. For more information see Policy Stat Procedure Adrian High Sensitivity Troponin (TNIH) and attachments. Performed By: #### L 501.4020 ####[facility] [address] [facility] [place], [address] Lactic Acidon 03-21-2024 Lactate [Moles/Vol] 2.1 mmol/L Invalid Interpretation Code 0.4-1.9 [facility] Comment on above: Result Comment: Crit ical Result(s) Called at: 17:06:48 03/21/2024 by: KELLY Stacy. Results read back by same. Performed By: #### L 503.6005 ####[facility] [address] [place], [address] Lactate [Moles/Vol] 2.9 mmol/L Invalid Interpretation Code 0.4-1.9 [facility] Comment on above: Order Comment: Y Result Comment: Crit ical Result(s) Called at: 11:15:04 03/21/2024 by: KELLY Holland. Results read back by same. Performed By: #### L 500.2500, L503.6005, L500.3400, L100.0100 ####[facility] [address] [place], [address] Liver Profileon 03-21-2024 Albumin [Mass/Vol] 3.8 g/dL Normal 3.2-5.0 [facility] Comment on above: Performed By: #### L 500.2500, L503.6005, L500.3400, L100.0100 ####[facility] [address] [place], [address] ALK P 122 U/L High 45-117 [facility] Comment on above: Performed By: #### L 500.2500, L503.6005, L500.3400, L100.0100 ####[facility] [address] [place], [address] ALT [Catalytic activity/Vol] 23 U/L Normal 13-56 [facility] Comment on above: Performed By: #### L 500.2500, L503.6005, L500.3400, L100.0100 ####[facility] [address] [place], [address] AST [Catalytic activity/Vol] 38 U/L High 15-37 [facility] Comment on above: Performed By: #### L 500.2500, L503.6005, L500.3400, L100.0100 ####[facility] [address] [place], [address] Bilirubin [Mass/Vol] 0.40 mg/dL Normal 0.20-1.00 [facility] Comment on above: Result Comment: For patients on eltrombopag therapy, use of Dimension Adrian TBIL is not recommended. Performed By: #### L 500.2500, L503.6005, L500.3400, L100.0100 ####[facility] [address] [place], [address] Bilirubin.direct [Mass/Vol] 0.12 mg/dL Normal 0.00-0.30 [facility] Comment on above: Performed By: #### L 500.2500, L503.6005, L500.3400, L100.0100 ####[facility] [address] [place], [address] Globulin (S) [Mass/Vol] 4.1 g/dL Normal 2.2-4.2 [facility] Comment on above: Performed By: #### L 500.2500, L503.6005, L500.3400, L100.0100 ####[facility] [address] [place], [address] T PROT 7.9 g/dL Normal 6.4-8.2 [facility] Comment on above: Performed By: #### L 500.2500, L503.6005, L500.3400, L100.0100 ####[facility] [address] [place], [address] M100.678on 03-21-2024 M100.678 Normal Reference Ran ge = Negative FLUABV+SARS-CoV-2+RSV Pnl Resp NICOLE+probe GeneXpert Instrument, PCR method SARS-CoV-2 (COVID 19) Negative INFLUENZA A Negative INFLUENZA B Negative RSV PCR Negative Normal [facility] Comment on above: Performed By: #### L 400.0001, M100.678 ####[facility] [address] [place], [address] Urinalysis, Completeon 03-21 BACTERIA 1+ /hpf Normal None Seen [facility] Comment on above: Order Comment: COLOR OF URINE MAY AFFECT DIPSTICK RESULTS.CLEAN CATCH Performed By: #### L 400.0001, M100.678 ####[facility] [address] [place], [address] EPI,SQUAMOUS 0-5 SEEN Normal 5-10 [facility] Comment on above: Order Comment: COLOR OF URINE MAY AFFECT DIPSTICK RESULTS.CLEAN CATCH Performed By: #### L 400.0001, M100.678 ####[facility] [address] [place], [address] WBC 5-10 SEEN Normal 0-5 [facility] Comment on above: Order Comment: COLOR OF URINE MAY AFFECT DIPSTICK RESULTS.CLEAN CATCH Performed By: #### L 400.0001, M100.678 ####[facility] [address] [place], [address] Mucus Ql (Urine sed) 0 SEEN Normal [facility] Comment on above: Order Comment: COLOR OF URINE MAY AFFECT DIPSTICK RESULTS.CLEAN CATCH Performed By: #### L 400.0001, M100.678 ####[facility] [address] [place], [address] RBC 0 SEEN Normal 0-5 [facility] Comment on above: Order Comment: COLOR OF URINE MAY AFFECT DIPSTICK RESULTS.CLEAN CATCH Performed By: #### L 400.0001, M100.678 ####[facility] [address] [place], [address] Venous Duplex US - Edwardo Extre mon 03-21-2024 Venous Duplex US - Edwardo Extrem Normal [facility] Bacteria Ur Culton Bacteria identified Cx Nom (U) Abnormal [facility] Comment on above: Performed By: #### 6 30-4 ####[facility] LABCLIA [id number] [facility] [id number] [place] [address] [place] CNOVon 03-20-2024 CNOV Normal [facility] CNPNon 03-20-2024 CNPN Normal [facility] Cardiology Visit Reporton Cardiology Visit Report Normal [facility] UA DIP, URINE (POC)on 2023 BILIRUBIN UA (POCT) Negative Negative [facility] CLARITY UA (POCT) Clear [facility] COLOR UA (POCT) Yellow [facility] GLUCOSE UA (POCT) Negative Negative mg/dL [facility] Hemoglobin Ql (U) Negative Negative [facility] Interpretation and review of laboratory results Abnormal [facility] KETONE UA (POCT) Negative Negative mg/dL [facility] LEUKOCYTES UA (POCT) Small Abnormal Negative [facility] NITRITE UA (POCT) Positive Abnormal Negative [facility] PH UA (POCT) 5.0 4.5 - 8.0 [facility] Protein Ql (U) Negative Negative mg/dL [facility] SPECIFIC GRAVITY UA (POCT) 1.020 1.005 - 1.030 [facility] UROBILINOGEN UA (POCT) 0.2 Leonie l E.U./dL [facility] Location:[address], [place], [place], [id number] [place] [address] POINT OF CARE [facility] Gastroenterology Visit Repor ton 03-09-2024 Gastroenterology Visit Report Normal [facility] No Panel Informationon 03-04 Radiology Study observation (narrative) [facility] XR Chest PA and Lateralon IMPRESSION: Acute and/or chronic probable bronchitis. 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[employer] Transcribe Date/Time: Mar 04 2024 3:28P Dictated by : BEKAH MARX MD This examination was interpreted and the report reviewed and electronically signed by: BEKAH MARX MD on Mar 04 2024 3:36PM [facility] DIVISION OF RADIOLOGY * * *Final Report* [...] CT DIVISION OF RADIOLOGY Provider, Eliu puckett Dalton - 03/04/2024 * * *Final Report* * [...] on nonweightbearing radiography than recumbent CT, incidentally 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[employer] Transcribe Date/Time: Mar 04 2024 3:28P Dictated by : BEKAH MARX MD This examination was interpreted and the report reviewed and electronically signed by: BEKAH MARX MD on Mar 04 2024 3:36PM [facility] XR Elbow - right AP and Late ral and obliqueon 03-04-2024 IMPRESSION: 1. No acute osseous findings or joint effusion 2. Swelling of ulnar olecranon bursal region 3. Distal humeral hypertrophy pattern of chronic medial and lateral epicondylosis 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[employer] Transcribe Date/Time: Mar 04 2024 3:36P Dictated by : BEKAH MARX MD This examination was interpreted and the report reviewed and electronically signed by: BEKAH MARX MD on Mar 04 2024 3:42PM [facility] DIVISION OF RADIOLOGY * * *Final Report* [...] lateral humeral epicondyles. DIVISION OF RADIOLOGY Provider, [facility] - 03/04/2024 * * *Final Report* * [...] pattern of chronic medial and lateral epicondylosis 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[facility] Transcribe Date/Time: Mar 04 2024 3:36P Dictated by : BEKAH MARX MD This examination was interpreted and the report reviewed and electronically signed by: BEKAH MARX MD on Mar 04 2024 3:42PM [facility] XR Elbow - right AP and Late ral and obliqueOrdered By: Ccf Provider on 03-04-2024 [facility] Surgery Visit Reporton 02-27 Surgery Visit Report Normal [facility] XR Foot - left AP and Latera l and obliqueon 02-24-2024 IMPRESSION: No acute osseous abnormality 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 DIVISION OF RADIOLOGY Provider, [facility] - 02/24/2024 * * *Final Report* * [...] spur. IMPRESSION IMPRESSION: No acute osseous abnormality 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[employer]IVE Transcribe Date/Time: Feb 24 2024 4:25P Dictated by : YENIFER ROLDAN MD This examination was interpreted and the report reviewed and electronically signed by: YENIFER ROLDAN MD on Feb 24 2024 4:33PM EST [facility] XR Foot - left AP and Latera l and obliqueOrdered By: Ccf Provider on 02-24-2024 [facility] XR Foot - left AP and Latera l and obliqueon 02-18-2024 Radiology Study observation (narrative) [facility] C-REACTIVE PROTEIN (CRP)on 0 12-07-2023 CRP [Mass/Vol] 0.5 mg/dL <0.9 mg/dL [facility] CK CREATINE KINASEon 024 CK [Catalytic activity/Vol] 260 U/L High 42 - 196 U/L [facility] CORTISOL BLDon 12-07-2023 Cortisol [Mass/Vol] 10.4 ug/dL 4.8 - 19 .5 ug/dL [facility] ESR Westergren method (Bld) [Velocity]on 12-07-2023 ESR (Bld) [Velocity] 17 mm/h 0 - 20 mm/hr Cl [facility] T3 FREE BLDon 12-07-2023 Free T3 [Mass/Vol] 2.9 pg/mL 2.3 - 4.1 pg/mL [facility] T4 FREE/FREE THYROXon 2023 Free T4 [Mass/Vol] 0.9 ng/dL 0.9 - 1.7 ng/dL [facility] TSH BLDon 12-07-2023 TSH Qn 0.899 m[IU]/L 0.270 - 4.200 mIU/L [facility] Thin prep Papanicolaou smear with manual screeningOrdered By: Uriel Friend on 11-28-2023 Thin prep Papanicolaou smear with manual screening 210 mg/dL 74-106 [facility] Comment on above: MANAGEMENT OF PATIEN T CARE PER NURSING PROTOCOL CT Chest for screening co ntraston 11-22-2023 [facility] NITRIC OXIDE, EXHALEDon 03-0 [facility] SPIROMETRY WITH DILATOR IF O BSTRUCTEDon 11-11-2023 ADG35-45% PRE (L/S) 1.13 L/S [facility] FEV1 PRE (L) 1.99 L [facility] FEV1/FVC PRE (%) 69 % [facility] FVC PRE (L) 2.90 L [facility] PEF PRE (L/S) 5.40 L/S [facility] Absolute lymphocyte countOrd ered By: Jono Castro on 09-20-2023 Lymphocytes Auto (Unsp spec) [#/Vol] 3.50 10*3/uL 0.83-4.51 [facility] Basophil percentageOrdered B y: Jono Castro on 09-20-2023 Basophils/100 WBC (Bld) 0.6 % 0-1 [facility] Chloride [Moles/Vol] 105 mmol/L 98-107 [facility] Eosinophils/100 WBC (Bld) 2.4 % 0-5 [facility] Glucose [Mass/Vol] 163 mg/dL 74-106 [facility] Comment on above: Fasting Glucose resu lt greater than or equal to 126 mg/dL suggests DIABETES MELLITUS per A.D.A. criteria. Neutrophils (Bld) [#/Vol] 5.2 10*3/uL 2.0-7.7 [facility] Neutrophils/100 WBC (Bld) 54.3 % 47-70 [facility] Potassium [Moles/Vol] 3.6 mmol/L 3.5-5.1 [facility] Sodium [Moles/Vol] 140 mmol/L 136-145 [facility] WBC (Bld) [#/Vol] 9.6 10*3/uL 4.4-11.0 [facility] Blood erythrocytes count (nu mber/volume)Ordered By: Jono Castro on 09-20-2023 RBC (Bld) [#/Vol] 5.24 10*6/uL 4.2-5.4 [facility] Blood hemoglobin measurement (mass/volume)Ordered By: Jono Castro on 09-20-2023 Hemoglobin (Bld) [Mass/Vol] 14.9 g/dL 12.0-15.0 [facility] Blood lymphocytes/100 leukoc ytesOrdered By: Jono Castro on 09-20-2023 Lymphocytes/100 WBC (Bld) 36.5 % 19-41 [facility] Blood monocytes/100 leukocyt esOrdered By: Jono Castro on 09-20-2023 Monocytes/100 WBC (Bld) 5.8 % 0-10 [facility] Blood platelet mean volumeOr dered By: Jono Castro on 09-20-2023 Platelet mean volume (Bld) [Entitic vol] 9.7 fL 6.2-12.0 [facility] Determination of erythrocyte mean corpuscular volume (MCV)Ordered By: Jono Castro on 09-20-2023 MCV (RBC) [Entitic vol] 83.4 fL 81-99 [facility] Erythrocyte sedimentation ra teOrdered By: Jono Castro on 09-20-2023 ESR (Bld) [Velocity] 8 mm/h 0-30 [facility] Hematocrit Auto (Bld) [Volum e fraction]Ordered By: Jono Castro on 09-20-2023 Hematocrit (Bld) [Volume fraction] 43.7 % 37-47 [facility] Laboratory - Chemistry and C hemistry - challengeOrdered By: Jono Castro on 09-20-2023 CO2 [Moles/Vol] 28.0 mmol/L 21.0-32.0 [facility] Urea nitrogen/Creatinine [Mass ratio] 19.5 mg/mg 10-20 [facility] Laboratory - Hematology and Cell countsOrdered By: Jono Castro on 09-20-2023 Erythrocyte distribution width (RBC) [Entitic vol] 42.4 fL 35.1-43.9 [facility] Erythrocyte distribution width (RBC) [Ratio] 14.0 % 11.6-14.6 [facility] Immature granulocytes/100 WBC (Bld) 0.400 % 0.0-0.9 [facility] Comment on above: IG% - Immature Granu locytes (promyelocytes, myelocytes and metamyelocytes) > 1% indicates that a LEFT SHIFT is Present. MCH (RBC) [Entitic mass] 28.4 pg 27.0-32.0 [facility] Nucleated RBC/100 WBC (Bld) [Ratio] 0 % 0-5 [facility] MCHC Auto (RBC) [Mass/Vol]Or dered By: Jono Castro on 09-20-2023 MCHC (RBC) [Mass/Vol] 34.1 g/dL 32-36 [facility] No Panel InformationOrdered By: Jono Castro on 09-20-2023 Estimated Creatinine Clearance Calc 117.10 ml/min [facility] Estimated GFR (MDRD) Amer 139 mL/min >60 [facility] Comment on above: GFR Calc Estimated GFR (MDRD) Non-Af Amer 115 mL/min >60 [facility] Comment on above: Non- GFR Calc Platelets bldOrdered By: Alexandr Castro on 09-20-2023 Platelets (Bld) [#/Vol] 312 10*3/uL 150-450 [facility] Serum or plasma calcium pradip urement (mass/volume)Ordered By: Jono Castro on 09-20-2023 Calcium [Mass/Vol] 9.1 mg/dL 8.5-10.1 [facility] Serum or plasma creatinine m easurement (mass/volume)Ordered By: Jono Castro on 09-20-2023 Creatinine [Mass/Vol] 0.56 mg/dL 0.55-1.02 [facility] Comment on above: The validity of the calculated GFR & GFRAA in patients over 70 years has not been determined. Clinical correlation is essential. Serum or plasma urea nitroge n measurement (mass/volume)Ordered By: Jono Castro on 09-20-2023 Urea nitrogen [Mass/Vol] 11 mg/dL 7-18 [facility] Thin prep Papanicolaou smear with manual screeningOrdered By: Jono Castro on 09-20-2023 Thin prep Papanicolaou smear with manual screening 7 5-15 [facility] XR Shoulder - right 3 Viewso n 07-25-2023 IMPRESSION: No acute fracture or dislocation. Mild right AC joint osteoarthritis. 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[facility] Transcribe Date/Time: Jul 25 2023 8:55A Dictated by : NETTIE HENDERSON MD This examination was interpreted and the report reviewed and electronically signed by: NETTIE HENDERSON MD on Jul 25 2023 8:57AM [facility] DIVISION OF RADIOLOGY * * *Final Report* [...] not high riding. DIVISION OF RADIOLOGY [facility] * * *Final Report* * [...] or dislocation. Mild right AC joint osteoarthritis. 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[employer] Transcribe Date/Time: Jul 25 2023 8:55A Dictated by : NETTIE HENDERSON MD This examination was interpreted and the report reviewed and electronically signed by: NETTIE HENDERSON MD on Jul 25 2023 8:57AM EST [facility] XR Shoulder - right 3 ViewsO rdered By: Ccf Provider on 07-25-2023 [facility] XR SHOULDER GENERAL 3V OR MO RE AP/TRUE AP/OTHER RIGHTon 07-23-2023 [facility] XR Shoulder - right 3 Viewso n 07-23-2023 Radiology Study observation (narrative) [facility] Absolute lymphocyte countOrd ered By: Corey Rubi on 06-27-2023 Lymphocytes Auto (Unsp spec) [#/Vol] 3.45 10*3/uL 0.83-4.51 [facility] Basophil percentageOrdered B y: Corey Rubi on 06-27-2023 Basophils/100 WBC (Bld) 0.3 % 0-1 [facility] Chloride [Moles/Vol] 105 mmol/L 98-107 [facility] Eosinophils/100 WBC (Bld) 4.5 % 0-5 [facility] Glucose [Mass/Vol] 181 mg/dL 74-106 [facility] Comment on above: Fasting Glucose resu lt greater than or equal to 126 mg/dL suggests DIABETES MELLITUS per A.D.A. criteria. Neutrophils (Bld) [#/Vol] 2.8 10*3/uL 2.0-7.7 [facility] Neutrophils/100 WBC (Bld) 40.1 % 47-70 [facility] Potassium [Moles/Vol] 3.3 mmol/L 3.5-5.1 [facility] Sodium [Moles/Vol] 139 mmol/L 136-145 [facility] WBC (Bld) [#/Vol] 7.1 10*3/uL 4.4-11.0 [facility] Blood erythrocytes count (nu mber/volume)Ordered By: Corey Rubi on 06-27-2023 RBC (Bld) [#/Vol] 5.02 10*6/uL 4.2-5.4 [facility] Blood hemoglobin measurement (mass/volume)Ordered By: Corey Rubi on 06-27-2023 Hemoglobin (Bld) [Mass/Vol] 14.3 g/dL 12.0-15.0 [facility] Blood lymphocytes/100 leukoc ytesOrdered By: Corey Rubi on 06-27-2023 Lymphocytes/100 WBC (Bld) 48.9 % 19-41 [facility] Blood monocytes/100 leukocyt esOrdered By: Corey Rubi on 06-27-2023 Monocytes/100 WBC (Bld) 5.9 % 0-10 [facility] Blood platelet mean volumeOr dered By: Corey Rubi on 06-27-2023 Platelet mean volume (Bld) [Entitic vol] 9.6 fL 6.2-12.0 [facility] Determination of erythrocyte mean corpuscular volume (MCV)Ordered By: Corey Rubi on 06-27-2023 MCV (RBC) [Entitic vol] 84.3 fL 81-99 [facility] Hematocrit Auto (Bld) [Volum e fraction]Ordered By: Corey Rubi on 06-27-2023 Hematocrit (Bld) [Volume fraction] 42.3 % 37-47 [facility] Laboratory - Chemistry and C hemistry - challengeOrdered By: Corey Rubi on 06-27-2023 CO2 [Moles/Vol] 26.0 mmol/L 21.0-32.0 [facility] Natriuretic peptide B (Bld) [Mass/Vol] 68.4 pg/mL 0-100 [facility] Urea nitrogen/Creatinine [Mass ratio] 20.5 mg/mg 10-20 [facility] Laboratory - Hematology and Cell countsOrdered By: Corey Rubi on 06-27-2023 Erythrocyte distribution width (RBC) [Entitic vol] 37.5 fL 35.1-43.9 [facility] Erythrocyte distribution width (RBC) [Ratio] 12.5 % 11.6-14.6 [facility] Immature granulocytes/100 WBC (Bld) 0.300 % 0.0-0.9 [facility] Comment on above: IG% - Immature Granu locytes (promyelocytes, myelocytes and metamyelocytes) > 1% indicates that a LEFT SHIFT is Present. MCH (RBC) [Entitic mass] 28.5 pg 27.0-32.0 [facility] Nucleated RBC/100 WBC (Bld) [Ratio] 0 % 0-5 [facility] MCHC Auto (RBC) [Mass/Vol]Or dered By: Corey Rubi on 06-27-2023 MCHC (RBC) [Mass/Vol] 33.8 g/dL 32-36 [facility] No Panel InformationOrdered By: Corey Rubi on 06-27-2023 Estimated Creatinine Clearance Calc 91.36 ml/min [facility] Estimated GFR (MDRD) Amer 133 mL/min >60 [facility] Comment on above: GFR Calc Estimated GFR (MDRD) Non-Af Amer 110 mL/min >60 [facility] Comment on above: Non- GFR Calc Troponin I High Sensitivity 6 pg/mL 3.0-54.0 [facility] Comment on above: Please Note: New Evelyn t Units and Gender Specific Reference Ranges. For more information see Policy Stat Procedure Adrian High Sensitivity Troponin (TNIH) and attachments. Platelets bldOrdered By: Devaughn Rubi on 06-27-2023 Platelets (Bld) [#/Vol] 326 10*3/uL 150-450 [facility] Serum or plasma calcium pradip urement (mass/volume)Ordered By: Corey Rubi on 06-27-2023 Calcium [Mass/Vol] 8.6 mg/dL 8.5-10.1 [facility] Serum or plasma creatinine m easurement (mass/volume)Ordered By: Corey Rubi on 06-27-2023 Creatinine [Mass/Vol] 0.59 mg/dL 0.55-1.02 [facility] Comment on above: The validity of the calculated GFR & GFRAA in patients over 70 years has not been determined. Clinical correlation is essential. Serum or plasma urea nitroge n measurement (mass/volume)Ordered By: Corey Rubi on 06-27-2023 Urea nitrogen [Mass/Vol] 12 mg/dL 7-18 [facility] Thin prep Papanicolaou smear with manual screeningOrdered By: Corey Rubi on 06-27-2023 Thin prep Papanicolaou smear with manual screening 8 5-15 [facility] No Panel InformationOrdered By: Uriel Caceres on 06-20-2023 Stool Pancreatic Elastase 145 >200 [facility] Comment on above: Result Units: ug Tammy st./g Severe Pancreatic Insufficiency: <100 Moderate Pancreatic Insufficiency: 100 - 200 Normal: >200Performed at: - [facility] [address] [id number] Director: Aung Araujo MD, Phone: [phone] Laboratory - Miscellaneous t estsOrdered By: Uriel Caceres on 06-19-2023 Service comment (Unsp spec) [Interp] Comment . [facility] Comment on above: Levels of Specific I [...] 06-19-2023 Scallop Allergen <0.10 kU/L Class 0 [facility] Sesame Seed Allergen IgE Antibody <0.10 kU/L Class 0 [facility] Comment on above: Performed at: [address] [id number] Director: Aung Araujo MD, Phone: [phone] Shrimp Allergen <0.10 kU/L Class 0 [facility] Serum black walnut IgE antib suze assay (units/volume)Ordered By: Uriel Caceres on 06-19-2023 Black [place] IgE Qn (S) <0.10 kU/L Class 0 [facility] Serum clam IgE antibody assa y (units/volume)Ordered By: Uriel Caceres on 06-19-2023 Clam IgE Qn (S) <0.10 kU/L Class 0 [facility] Serum codfish IgE antibody a ssay (units/volume)Ordered By: Uriel Caceres on 06-19-2023 Codfish IgE Qn (S) <0.10 kU/L Class 0 [facility] Serum corn IgE antibody assa y (units/volume)Ordered By: Uriel Caceres on 06-19-2023 [place] IgE Qn (S) <0.10 kU/L Class 0 [facility] Serum cow milk IgE antibody assay (units/volume)Ordered By: Uriel Caceres on 06-19-2023 Cow milk IgE Qn (S) 0.49 kU/L Class I [facility] Serum egg white IgE antibody assay (units/volume)Ordered By: Uriel Caceres on 06-19-2023 Egg white IgE Qn (S) 0.19 kU/L Class 0/I [facility] Serum peanut IgE antibody as say (units/volume)Ordered By: Uriel Caceres on 06-19-2023 Peanut IgE Qn (S) 0.44 kU/L Class I [facility] Serum soybean IgE antibody a ssay (units/volume)Ordered By: Uriel Caceres on 06-19-2023 Soybean IgE Qn (S) <0.10 kU/L Class 0 [facility] Serum wheat IgE antibody ass ay (units/volume)Ordered By: Uriel Caceres on 06-19-2023 Wheat IgE Qn (S) <0.10 kU/L Class 0 [facility] Culture, urineOrdered By: Blake Morales on 06-10-2023 Bacteria identified Cx Nom (U) Escherichia coli [facility] Bacteria identified Cx Nom (U) Escherichia coli [facility] C-REACTIVE PROTEIN (CRP)on 0 06-01-2023 CRP [Mass/Vol] <0.9 mg/dL [facility] Comprehensive metabolic 2000 panelon 06-01-2023 Albumin [Mass/Vol] 4.3 g/dL 3.9 - 4.9 g/dL [facility] ALP [Catalytic activity/Vol] 84 U/L 34 - 123 U/L [facility] ALT [Catalytic activity/Vol] 11 U/L 7 - 38 U/L [facility] Anion gap [Moles/Vol] 14 mmol/L 9 - 18 mmol/L [facility] AST [Catalytic activity/Vol] 14 U/L 13 - 35 U/L [facility] Bilirubin [Mass/Vol] 0.2 mg/dL 0.2 - 1 .3 mg/dL [facility] Calcium [Mass/Vol] 9.2 mg/dL 8.5 - 10. 2 mg/dL [facility] Chloride [Moles/Vol] 103 mmol/L 97 - 10 5 mmol/L [facility] CO2 [Moles/Vol] 22 mmol/L 22 - 30 mmol/L [facility] Creatinine [Mass/Vol] 0.50 mg/dL Low 0.58 - 0.96 mg/dL [facility] Estimated Glomerular Filtration Rate 106 mL/min/1.73m >=60 mL/min/1.73m [facility] Glucose [Mass/Vol] 201 mg/dL High 74 - 99 mg/dL [facility] Potassium [Moles/Vol] 3.5 mmol/L Low 3.7 - 5.1 mmol/L [facility] Protein [Mass/Vol] 6.9 g/dL 6.3 - 8.0 g/dL [facility] Sodium [Moles/Vol] 139 mmol/L 136 - 144 mmol/L [facility] Urea nitrogen [Mass/Vol] 13 mg/dL 7 - 21 mg/dL [facility] TSH BLDon 06-01-2023 TSH Qn 0.989 m[IU]/L 0.270 - 4.200 mIU/L [facility] CBC W Auto Differential pane l (Bld)on 05-31-2023 Basophils (Bld) [#/Vol] 0.08 10*3/uL <0.11 k/uL [facility] Basophils/100 WBC (Bld) 0.6 % [facility] Differential cell count method Nom (Bld) Auto [facility] Eosinophils (Bld) [#/Vol] 1.56 10*3/uL High <0.46 k/uL [facility] Eosinophils/100 WBC (Bld) 11.8 % [facility] Erythrocyte distribution width (RBC) [Ratio] 13.1 % 11.5 - 15.0 % [facility] Hematocrit (Bld) [Volume fraction] 44.5 % 36.0 - 46.0 % [facility] Hemoglobin (Bld) [Mass/Vol] 15.7 g/dL High 11.5 - 15.5 g/dL [facility] Immature granulocytes (Bld) [#/Vol] 0.07 10*3/uL <0.10 k/uL [facility] Immature granulocytes/100 WBC (Bld) 0.5 % [facility] Lymphocytes (Bld) [#/Vol] 4.52 10*3/uL High 1.00 - 4.00 k/uL [facility] Lymphocytes/100 WBC (Bld) 34.3 % [facility] MCH (RBC) [Entitic mass] 29.7 pg 26.0 - 34.0 pg [facility] MCHC (RBC) [Mass/Vol] 35.3 g/dL 30.5 - 36.0 g/dL [facility] MCV (RBC) [Entitic vol] 84.3 fL 80.0 - 100.0 fL [facility] Monocytes (Bld) [#/Vol] 0.77 10*3/uL <0.87 k/uL [facility] Monocytes/100 WBC (Bld) 5.8 % [facility] Neutrophils (Bld) [#/Vol] 6.19 10*3/uL 1.45 - 7.50 k/uL [facility] Neutrophils/100 WBC (Bld) 47.0 % [facility] Nucleated RBC (Bld) [#/Vol] <0.01 k/uL [facility] Nucleated RBC/100 WBC (Bld) [Ratio] 0.0 /100 WBC [facility] Platelet mean volume (Bld) [Entitic vol] 9.8 fL 9.0 - 12.7 fL [facility] Platelets (Bld) [#/Vol] 401 10*3/uL High 150 - 400 k/uL [facility] RBC (Bld) [#/Vol] 5.28 10*6/uL High 3.90 - 5.2 0 m/uL [facility] WBC (Bld) [#/Vol] 13.19 10*3/uL High 3.70 - 11 .00 k/uL [facility] ESR Westergren method (Bld) [Velocity]on 05-31-2023 ESR (Bld) [Velocity] 5 mm/h 0 - 20 mm/hr Cl [facility] XR CHEST 2V FRONTAL/LATon [facility] XR Chest PA and Lateralon IMPRESSION: Small bilateral pleural effusions. 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 IMPRESSION IMPRESSION: Small bilateral pleural effusions. 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[employer] Transcribe Date/Time: May 28 2023 6:51P Dictated by : TAB BARKLEY MD This examination was interpreted and the report reviewed and electronically signed by: TBA BARKLEY MD on May 28 2023 6:52PM EST [facility] Radiology Study observation (narrative) [facility] XR Chest PA and LateralOrder ed By: Ccf Provider on 05-28-2023 [facility] Absolute lymphocyte countOrd ered By: Diogo Garza on 05-26-2023 Lymphocytes Auto (Unsp spec) [#/Vol] 3.20 10*3/uL 0.83-4.51 [facility] Basophil percentageOrdered B y: Diogo Garza on 05-26-2023 Basophils/100 WBC (Bld) 0.7 % 0-1 [facility] Chloride [Moles/Vol] 106 mmol/L 98-107 [facility] Eosinophils/100 WBC (Bld) 6.6 % 0-5 [facility] Glucose [Mass/Vol] 193 mg/dL 74-106 [facility] Comment on above: Fasting Glucose resu lt greater than or equal to 126 mg/dL suggests DIABETES MELLITUS per A.D.A. criteria. Neutrophils (Bld) [#/Vol] 6.2 10*3/uL 2.0-7.7 [facility] Neutrophils/100 WBC (Bld) 56.9 % 47-70 [facility] Potassium [Moles/Vol] 3.3 mmol/L 3.5-5.1 [facility] Sodium [Moles/Vol] 137 mmol/L 136-145 [facility] WBC (Bld) [#/Vol] 11.0 10*3/uL 4.4-11.0 [facility] Basophil percentage 0 SEEN /hpf 0-5 [facility] Bilirubin Test strip Ql (U)O rdered By: Diogo Garza on 05-26-2023 Bilirubin Ql (U) Negative Negative [facility] Blood erythrocytes count (nu mber/volume)Ordered By: Diogo Garza on 05-26-2023 RBC (Bld) [#/Vol] 4.81 10*6/uL 4.2-5.4 [facility] Blood hemoglobin measurement (mass/volume)Ordered By: Diogo Garza on 05-26-2023 Hemoglobin (Bld) [Mass/Vol] 13.8 g/dL 12.0-15.0 [facility] Blood lymphocytes/100 leukoc ytesOrdered By: Diogo Garza on 05-26-2023 Lymphocytes/100 WBC (Bld) 29.2 % 19-41 [facility] Blood monocytes/100 leukocyt esOrdered By: Diogo Garza on 05-26-2023 Monocytes/100 WBC (Bld) 6.0 % 0-10 [facility] Blood platelet mean volumeOr dered By: Diogo Garza on 05-26-2023 Platelet mean volume (Bld) [Entitic vol] 9.7 fL 6.2-12.0 [facility] Calcium oxalate crystals det ection in urine sediment by light microscopyOrdered By: Diogo Garza on 05-26-2023 Calcium oxalate crystals LM Ql (Urine sed) 2+ /hpf [facility] Determination of erythrocyte mean corpuscular volume (MCV)Ordered By: Diogo Garza on 05-26-2023 MCV (RBC) [Entitic vol] 86.1 fL 81-99 [facility] Hematocrit Auto (Bld) [Volum e fraction]Ordered By: Diogo Garza on 05-26-2023 Hematocrit (Bld) [Volume fraction] 41.4 % 37-47 [facility] Ketones Test strip Ql (U)Ord ered By: Diogo Garza on 05-26-2023 Ketones Ql (U) Negative Negative [facility] Laboratory - Chemistry and C hemistry - challengeOrdered By: Diogo Garza on 05-26-2023 CO2 [Moles/Vol] 25.0 mmol/L 21.0-32.0 [facility] Urea nitrogen/Creatinine [Mass ratio] 16.8 mg/mg 10-20 [facility] Laboratory - Hematology and Cell countsOrdered By: Diogo Garza on 05-26-2023 Erythrocyte distribution width (RBC) [Entitic vol] 40.7 fL 35.1-43.9 [facility] Erythrocyte distribution width (RBC) [Ratio] 13.1 % 11.6-14.6 [facility] Immature granulocytes/100 WBC (Bld) 0.600 % 0.0-0.9 [facility] Comment on above: IG% - Immature Granu locytes (promyelocytes, myelocytes and metamyelocytes) > 1% indicates that a LEFT SHIFT is Present. MCH (RBC) [Entitic mass] 28.7 pg 27.0-32.0 [facility] Nucleated RBC/100 WBC (Bld) [Ratio] 0 % 0-5 [facility] MCHC Auto (RBC) [Mass/Vol]Or dered By: Diogo Garza on 05-26-2023 MCHC (RBC) [Mass/Vol] 33.3 g/dL 32-36 [facility] Mucus LM Ql (Urine sed)Order ed By: Diogo Garza on 05-26-2023 Mucus Ql (Urine sed) 0 SEEN /hpf [facility] Nitrite Test strip Ql (U)Ord ered By: Diogo Garza on 05-26-2023 Nitrite Ql (U) Negative Negative [facility] No Panel InformationOrdered By: Diogo Garza on 05-26-2023 Estimated Creatinine Clearance Calc 91.01 ml/min [facility] Estimated GFR (MDRD) Amer 131 mL/min >60 [facility] Comment on above: GFR Calc Estimated GFR (MDRD) Non-Af Amer 108 mL/min >60 [facility] Comment on above: Non- GFR Calc Platelets bldOrdered By: Naeem Garza on 05-26-2023 Platelets (Bld) [#/Vol] 313 10*3/uL 150-450 [facility] Protein Test strip Ql (U)Ord ered By: Diogo Garza on 05-26-2023 Protein Ql (U) 30 mg/dl Negative [facility] Serum or plasma calcium pradip urement (mass/volume)Ordered By: Diogo Garza on 05-26-2023 Calcium [Mass/Vol] 9.0 mg/dL 8.5-10.1 [facility] Serum or plasma creatinine m easurement (mass/volume)Ordered By: Diogo Garza on 05-26-2023 Creatinine [Mass/Vol] 0.60 mg/dL 0.55-1.02 [facility] Comment on above: The validity of the calculated GFR & GFRAA in patients over 70 years has not been determined. Clinical correlation is essential. Serum or plasma urea nitroge n measurement (mass/volume)Ordered By: Diogo Garza on 05-26-2023 Urea nitrogen [Mass/Vol] 10 mg/dL 7-18 [facility] Squamous epithelial cells de tection in urine sediment by light microscopyOrdered By: Diogo Garza on 05-26-2023 Epithelial cells.squamous LM Ql (Urine sed) 0-5 SEEN /hpf 5-10 [facility] Thin prep Papanicolaou smear with manual screeningOrdered By: Diogo Garza on 05-26-2023 Thin prep Papanicolaou smear with manual screening 6 5-15 [facility] Urine blood detectionOrdered By: Diogo Garza on 05-26-2023 RBC Ql (U) 25 /ul Negative [facility] RBC Ql (U) 0 SEEN /hpf 0-5 [facility] Urine clarityOrdered By: Naeem Garza on 05-26-2023 Clarity (U) Clear Clear [facility] Urine color determinationOrd ered By: Diogo Garza on 05-26-2023 Color (U) Yellow Yellow [facility] Urine glucose detectionOrder ed By: Diogo Garza on 05-26-2023 Glucose Ql (U) Normal mg/dl Normal [facility] Urine leukocyte esterase det ection by dipstickOrdered By: Diogo Garza on 05-26-2023 Leukocyte esterase Test strip Ql (U) 25 /ul Negative [facility] Urine pHOrdered By: Diogo lynn on 05-26-2023 pH (U) 6.0 [pH] 5.0 - 8.0 [facility] Urine sediment bacteria coun t by microscopy (number/high power field)Ordered By: Diogo Garza on 05-26-2023 Bacteria LM.HPF (Urine sed) [#/Area] 0 /[HPF] None Seen [facility] Urine specific gravity measu rementOrdered By: Diogo Garza on 05-26-2023 Specific gravity (U) [Rel density] 1.015 1.002-1.030 [facility] Urobilinogen Auto test strip Ql (U)Ordered By: Diogo Garza on 05-26-2023 Urobilinogen Ql (U) Normal mg/dl Normal [facility] LUNG DIFFUSION CAPACITY (DANIELLE O)on 04-24-2023 [facility] SPIROMETRY BASELINE ONLYon 0 04-24-2023 DLCO (ml/min/mmHg) 16.19 ml/min/mmHg [facility] DLCO/VA (ml/min/mmHg/L) 3.57 ml/min/mmHg/L [facility] [id number]% PRE (L/S) 1.13 L/S [facility] FEV1 PRE (L) 2.03 L [facility] FEV1/FVC PRE (%) 70 % [facility] FVC PRE (L) 2.91 L [facility] PEF PRE (L/S) 5.37 L/S [facility] VA (L) 4.53 L [facility] Erythrocyte sedimentation ra teOrdered By: Uriel Caceres on 04-01-2023 ESR (Bld) [Velocity] 8 mm/h 0-30 [facility] No Panel InformationOrdered By: Uriel Caceres on 04-01-2023 CA 19-9 Antigen 41 U/mL 0-35 [facility] Comment on above: [facility] El ectrochemiluminescence Immunoassay(ECLIA)Values obtained with different assay methods or kits cannotbe used interchangeably. Results cannot be interpreted asabsolute evidence of the presence or absence of malignantdisease.Performed at: [facility] [id number] Director: Lars Browne PhD, Phone: [phone] Serum or plasma C reactive p rotein measurement (mass/volume)Ordered By: Uriel Caceres on 04-01-2023 CRP [Mass/Vol] mg/L 0.0-3.0 [facility] Comment on above: C-Reactive Protein ( CRP) provides useful information for thediagnosis, therapy and monitoring of inflammatory processesand associated diseases. For the evaluation of Relative Riskfor Cardiovascular Disease, a High Sensitivity CRP (HSCRP)should be ordered. No Panel InformationOrdered By: Carrie Sheikh on 01-30-2023 C-Reactive Protein High Sensitivity 4.76 mg/L <3.00 [facility] Comment on above: Low Relative Risk of CVD <1.0 mg/L Average Relative Risk of CVD 1.0 - 3.0 mg/L High Relative Risk of CVD >3.0 mg/L CA 19-9 Antigen 44 U/mL 0-35 [facility] Comment on above: [facility] El ectrochemiluminescence Immunoassay(ECLIA)Values obtained with different assay methods or kits cannotbe used interchangeably. Results cannot be interpreted asabsolute evidence of the presence or absence of malignantdisease.Performed at: [facility] [id number] Director: Lars Browne PhD, Phone: [phone] EP PanelOrdered By: Carrie Sheikh on 01-08-2023 Gastrointestinal pathogens panel NICOLE+probe (Stl) [facility] Clostridium difficile detect ion by polymerase chain reactionOrdered By: Carrie Sheikh on 01-07-2023 C. difficile DNA NICOLE+probe Ql (Unsp spec) [facility] C. difficile DNA NICOLE+probe Ql (Unsp spec) [facility] No Panel InformationOrdered By: Carrie Sheikh on 01-07-2023 Stool Calprotectin <16 ug/g 0-120 [facility] Comment on above: Concentration Interp retation Follow-Up<16 - 50 ug/g Normal None>50 -120 ug/g Borderline Re-evaluate in 4-6 weeks >120 ug/g Abnormal Repeat as clinically indicatedPerformed at: [facility] [id number] Director: Aung Araujo MD, Phone: [phone] Stool enteric pathogen panel by probe and target amplification methodOrdered By: Carrie Sheikh on 01-07-2023 Gastrointestinal pathogens panel NICOLE+probe (Stl) [facility] Stool lactoferrin detection by immunoassayOrdered By: Carrie Sheikh on 01-07-2023 Lactoferrin IA Ql (Stl) [facility] Lactoferrin IA Ql (Stl) [facility] Erythrocyte sedimentation ra teOrdered By: Carrie Sheikh on 01-04-2023 ESR (Bld) [Velocity] 9 mm/h 0-30 [facility] - Chemistry and C hemistry - challengeOrdered By: Carrie Sheikh on 01-04-2023 Lipase [Catalytic activity/Vol] 130 U/L 13-75 [facility] Comment on above: Please note:LIPASE r evised reference range effective 22. New Lipase methodology. Expected to produce lower values than the previous assay method. NEW Reference Range: 13 - 75 U/L No Panel InformationOrdered By: Carrie Sheikh on 01-04-2023 Immunoglobulin G4 44 mg/dL 2-96 [facility] Comment on above: Performed at: - [address] [id number] Director: Lars Browne PhD, Phone: [phone] Serum IgG subclass 1 measure ment (mass/volume)Ordered By: Carrie Sheikh on 01-04-2023 IgG subclass 1 (S) [Mass/Vol] 338 mg/dL 248-810 [facility] Serum IgG subclass 2 measure ment (mass/volume)Ordered By: Carrie Sheikh on 01-04-2023 IgG subclass 2 (S) [Mass/Vol] 273 mg/dL 130-555 [facility] Serum IgG subclass 3 measure ment (mass/volume)Ordered By: Carrie Sheikh on 01-04-2023 IgG subclass 3 (S) [Mass/Vol] 32 mg/dL 15-102 [facility] Serum or plasma C reactive p rotein measurement (mass/volume)Ordered By: Carrie Sheikh on 01-04-2023 CRP [Mass/Vol] 3.34 mg/L 0.0-3.0 [facility] Comment on above: C-Reactive Protein ( CRP) provides useful information for thediagnosis, therapy and monitoring of inflammatory processesand associated diseases. For the evaluation of Relative Riskfor Cardiovascular Disease, a High Sensitivity CRP (HSCRP)should be ordered. Serum or plasma IgG measurem ent (mass/volume)Ordered By: Carrie Sheikh on 01-04-2023 IgG [Mass/Vol] 720 mg/dL [phone] [facility] Absolute lymphocyte countOrd ered By: Dr. Barrett on 12-29-2022 Lymphocytes Auto (Unsp spec) [#/Vol] 3.31 10*3/uL 0.83-4.51 [facility] Basophil percentageOrdered B y: Dr. Barrett on 12-29-2022 Basophils/100 WBC (Bld) 0.5 % 0-1 [facility] Bilirubin [Mass/Vol] 0.30 mg/dL 0.20-1.00 [facility] Comment on above: For patients on eltr ombopag therapy, use of Dimension Adrian TBIL is not recommended. Chloride [Moles/Vol] 105 mmol/L 98-107 [facility] Eosinophils/100 WBC (Bld) 1.5 % 0-5 [facility] Glucose [Mass/Vol] 167 mg/dL 74-106 [facility] Comment on above: Fasting Glucose resu lt greater than or equal to 126 mg/dL suggests DIABETES MELLITUS per A.D.A. criteria. Neutrophils (Bld) [#/Vol] 5.2 10*3/uL 2.0-7.7 [facility] Neutrophils/100 WBC (Bld) 55.6 % 47-70 [facility] Potassium [Moles/Vol] 3.2 mmol/L 3.5-5.1 [facility] Protein [Mass/Vol] 7.5 g/dL 6.4-8.2 [facility] Sodium [Moles/Vol] 137 mmol/L 136-145 [facility] WBC (Bld) [#/Vol] 9.4 10*3/uL 4.4-11.0 [facility] Blood erythrocytes count (nu mber/volume)Ordered By: Dr. Barrett on 12-29-2022 RBC (Bld) [#/Vol] 4.94 10*6/uL 4.2-5.4 [facility] Blood hemoglobin measurement (mass/volume)Ordered By: Dr. Barrett on 12-29-2022 Hemoglobin (Bld) [Mass/Vol] 14.2 g/dL 12.0-15.0 [facility] Blood lymphocytes/100 leukoc ytesOrdered By: Dr. Barrett on 12-29-2022 Lymphocytes/100 WBC (Bld) 35.2 % 19-41 [facility] Blood monocytes/100 leukocyt esOrdered By: Dr. Barrett on 12-29-2022 Monocytes/100 WBC (Bld) 7.0 % 0-10 [facility] Blood platelet mean volumeOr dered By: Dr. Barrett on 12-29-2022 Platelet mean volume (Bld) [Entitic vol] 9.1 fL 6.2-12.0 [facility] Determination of erythrocyte mean corpuscular volume (MCV)Ordered By: Dr. Barrett on 12-29-2022 MCV (RBC) [Entitic vol] 84.2 fL 81-99 [facility] Hematocrit Auto (Bld) [Volum e fraction]Ordered By: Dr. Barrett on 12-29-2022 Hematocrit (Bld) [Volume fraction] 41.6 % 37-47 [facility] Laboratory - Chemistry and C hemistry - challengeOrdered By: Dr. Barrett on 12-29-2022 ALP [Catalytic activity/Vol] 78 U/L 45-117 [facility] ALT [Catalytic activity/Vol] 39 U/L 13-56 [facility] CO2 [Moles/Vol] 25.0 mmol/L 21.0-32.0 [facility] Globulin (S) [Mass/Vol] 3.8 g/dL 2.2-4.2 [facility] Urea nitrogen/Creatinine [Mass ratio] 17.3 mg/mg 10-20 [facility] Laboratory - Hematology and Cell countsOrdered By: Dr. Barrett on 12-29-2022 Erythrocyte distribution width (RBC) [Entitic vol] 39.8 fL 35.1-43.9 [facility] Erythrocyte distribution width (RBC) [Ratio] 13.1 % 11.6-14.6 [facility] Immature granulocytes/100 WBC (Bld) 0.200 % 0.0-0.9 [facility] Comment on above: IG% - Immature Granu locytes (promyelocytes, myelocytes and metamyelocytes) > 1% indicates that a LEFT SHIFT is Present. MCH (RBC) [Entitic mass] 28.7 pg 27.0-32.0 [facility] Nucleated RBC/100 WBC (Bld) [Ratio] 0 % 0-5 [facility] MCHC Auto (RBC) [Mass/Vol]Or dered By: Dr. Barrett on 12-29-2022 MCHC (RBC) [Mass/Vol] 34.1 g/dL 32-36 [facility] No Panel InformationOrdered By: Dr. Barrett on 12-29-2022 Troponin I High Sensitivity 5 pg/mL 3.0-54.0 [facility] Comment on above: Please Note: New Evelyn t Units and Gender Specific Reference Ranges. For more information see Policy Stat Procedure Adrian High Sensitivity Troponin (TNIH) and attachments. Estimated Creatinine Clearance Calc 94.15 ml/min [facility] Estimated GFR (MDRD) Amer 136 mL/min >60 [facility] Comment on above: GFR Calc Estimated GFR (MDRD) Non-Af Amer 112 mL/min >60 [facility] Comment on above: Non- GFR Calc Platelets bldOrdered By: Dr. Barrett on 12-29-2022 Platelets (Bld) [#/Vol] 329 10*3/uL 150-450 [facility] Serum or plasma albumin pradip urement (mass/volume)Ordered By: Dr. Barrett on 12-29-2022 Albumin [Mass/Vol] 3.7 g/dL 3.2-5.0 [facility] Serum or plasma albumin/glob ulin mass ratioOrdered By: Dr. Barrett on 12-29-2022 Albumin/Globulin [Mass ratio] 1.0 {ratio} 0.9-2.4 [facility] Serum or plasma calcium pradip urement (mass/volume)Ordered By: Dr. Barrett on 12-29-2022 Calcium [Mass/Vol] 8.6 mg/dL 8.5-10.1 [facility] Serum or plasma creatinine m easurement (mass/volume)Ordered By: Dr. Barrett on 12-29-2022 Creatinine [Mass/Vol] 0.58 mg/dL 0.55-1.02 [facility] Comment on above: The validity of the calculated GFR & GFRAA in patients over 70 years has not been determined. Clinical correlation is essential. Serum or plasma urea nitroge n measurement (mass/volume)Ordered By: Dr. Barrett on 12-29-2022 Urea nitrogen [Mass/Vol] 10 mg/dL 7-18 [facility] Thin prep Papanicolaou smear with manual screeningOrdered By: Dr. Barrett on 12-29-2022 Thin prep Papanicolaou smear with manual screening 35 U/L 15- [facility] Thin prep Papanicolaou smear with manual screening 7 5-15 [facility] ALBUMIN/CREAT RATIO RND URon 12-20-2022 Albumin DL <= 20 mg/L (U) [Mass/Vol] [facility] Albumin/Creatinine (U) [Mass ratio] <30 mg/g [facility] Creatinine (U) [Mass/Vol] 63.1 mg/dL 20.0 - 300.0 mg/dL [facility] [id number] BLon 12-19 Alpha 1 antitrypsin [Mass/Vol] 158 mg/dL 90 - 200 mg/dL [facility] CBC panel Auto (Bld)on 12-19 Erythrocyte distribution width (RBC) [Ratio] 13.3 % 11.5 - 15.0 % [facility] Hematocrit (Bld) [Volume fraction] 47.7 % High 36.0 - 46.0 % [facility] Hemoglobin (Bld) [Mass/Vol] 15.6 g/dL High 11.5 - 15.5 g/dL [facility] MCH (RBC) [Entitic mass] 29.0 pg 26.0 - 34.0 pg [facility] MCHC (RBC) [Mass/Vol] 32.7 g/dL 30.5 - 36.0 g/dL [facility] MCV (RBC) [Entitic vol] 88.7 fL 80.0 - 100.0 fL [facility] Nucleated RBC (Bld) [#/Vol] <0.01 k/uL [facility] Platelet mean volume (Bld) [Entitic vol] 9.7 fL 9.0 - 12.7 fL [facility] Platelets (Bld) [#/Vol] 306 10*3/uL 150 - 400 k/uL [facility] RBC (Bld) [#/Vol] 5.38 10*6/uL High 3.90 - 5.2 0 m/uL [facility] WBC (Bld) [#/Vol] 9.10 10*3/uL 3.70 - 11. 00 k/uL [facility] Comprehensive metabolic 2000 panelon 12-19-2022 Albumin [Mass/Vol] 4.2 g/dL 3.9 - 4.9 g/dL [facility] ALP [Catalytic activity/Vol] 55 U/L 34 - 123 U/L [facility] ALT [Catalytic activity/Vol] 18 U/L 7 - 38 U/L [facility] Anion gap [Moles/Vol] 14 mmol/L 9 - 18 mmol/L [facility] AST [Catalytic activity/Vol] 27 U/L 13 - 35 U/L [facility] Bilirubin [Mass/Vol] 0.2 mg/dL 0.2 - 1 .3 mg/dL [facility] Calcium [Mass/Vol] 8.9 mg/dL 8.5 - 10. 2 mg/dL [facility] Chloride [Moles/Vol] 105 mmol/L 97 - 10 5 mmol/L [facility] CO2 [Moles/Vol] 21 mmol/L Low 22 - 30 mmol/L [facility] Creatinine [Mass/Vol] 0.49 mg/dL Low 0.58 - 0.96 mg/dL [facility] Estimated Glomerular Filtration Rate 107 mL/min/1.73m >=60 mL/min/1.73m [facility] Glucose [Mass/Vol] 178 mg/dL High 74 - 99 mg/dL [facility] Potassium [Moles/Vol] 3.5 mmol/L Low 3.7 - 5.1 mmol/L [facility] Protein [Mass/Vol] 7.0 g/dL 6.3 - 8.0 g/dL [facility] Sodium [Moles/Vol] 140 mmol/L 136 - 144 mmol/L [facility] Urea nitrogen [Mass/Vol] 11 mg/dL 7 - 21 mg/dL [facility] HbA1c (Bld)on 12-19-2022 Average glucose Estimated from glycated hemoglobin (Bld) [Mass/Vol] 180 mg/dL [facility] HbA1c (Bld) [Mass fraction] 7.9 % High 4.3 - 5.6 % [facility] Lipid 1996 panelon 3 Cholesterol [Mass/Vol] 153 mg/dL <200 mg/dL [facility] Cholesterol in HDL [Mass/Vol] 26 mg/dL Low >39 mg/dL [facility] Cholesterol in LDL [Mass/Vol] 60 mg/dL <100 mg/dL [facility] Cholesterol in LDL/Cholesterol in HDL [Mass ratio] 2.31 {ratio} <2.54 [facility] Cholesterol in VLDL [Mass/Vol] 67 mg/dL High <30 mg/dL [facility] Cholesterol non HDL [Mass/Vol] 127 mg/dL <130 mg/dL [facility] Cholesterol.total/Chol esterol in HDL [Mass ratio] 5.88 {ratio} High <5.10 [facility] Fasting Time 13 hrs [facility] Triglyceride [Mass/Vol] 334 mg/dL High <150 mg/dL [facility] XR CHEST 2V FRONTAL/LATon [facility] XR Chest PA and Lateralon IMPRESSION: Peribronchial cuffing which may be seen with small airways inflammation/bronchitis Mild right infrahilar opacity, atelectasis versus bronchopneumonia in the appropriate clinical setting 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OLIVE Transcribe Date/Time: Nov 21 2022 4:50P Dictated by : JONATHAN SUAREZ MD This examination was interpreted and the report reviewed and electronically signed by: JONATHAN SUAREZ MD on Nov 21 2022 4:52PM [facility] DIVISION OF RADIOLOGY * * *Final Report* [...] the thoracic spine. DIVISION OF RADIOLOGY Provider, [facility] - 11/21/2022 * * *Final Report* * [...] versus bronchopneumonia in the appropriate clinical setting 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OLIVE Transcribe Date/Time: Nov 21 2022 4:50P Dictated by : JONATHAN SUAREZ MD This examination was interpreted and the report reviewed and electronically signed by: JONATHAN SUAREZ MD on Nov 21 2022 4:52PM EST [facility] Radiology Study observation (narrative) [facility] XR Chest PA and LateralOrder ed By: [facility] Provider on 11-21-2022 [facility] DXA-AXIAL SKELETONon 023 LOWEST T-SCORE 0.5 [facility] MRI LUMBAR SPINE WO IVCONon 09-27-2022 [facility] JAVIER SCREENINGon 09-14-2022 [facility] No Panel Informationon 07-16 [facility] Absolute lymphocyte countOrd ered By: Dr. Castro on 07-02-2022 Lymphocytes Auto (Unsp spec) [#/Vol] 3.35 10*3/uL 0.83-4.51 [facility] Basophil percentageOrdered B y: Dr. Castro on 07-02-2022 Basophils/100 WBC (Bld) 0.9 % 0-1 [facility] Chloride [Moles/Vol] 100 mmol/L 98-107 [facility] Eosinophils/100 WBC (Bld) 1.0 % 0-5 [facility] Glucose [Mass/Vol] 332 mg/dL 74-106 [facility] Comment on above: Glucose result great er than or equal to 200 mg/dLsuggests DIABETES MELLITUS per A.D.A. criteria. Neutrophils (Bld) [#/Vol] 9.3 10*3/uL 2.0-7.7 [facility] Neutrophils/100 WBC (Bld) 69.7 % 47-70 [facility] Potassium [Moles/Vol] 3.9 mmol/L 3.5-5.1 [facility] Sodium [Moles/Vol] 135 mmol/L 136-145 [facility] WBC (Bld) [#/Vol] 13.4 10*3/uL 4.4-11.0 [facility] Basophil percentage 0 SEEN /hpf 0-5 [facility] Bilirubin Test strip Ql (U)O rdered By: Dr. Castro on 07-02-2022 Bilirubin Ql (U) Negative Negative [facility] Blood erythrocytes count (nu mber/volume)Ordered By: Dr. Castro on 07-02-2022 RBC (Bld) [#/Vol] 5.45 10*6/uL 4.2-5.4 [facility] Blood hemoglobin measurement (mass/volume)Ordered By: Dr. Castro on 07-02-2022 Hemoglobin (Bld) [Mass/Vol] 15.7 g/dL 12.0-15.0 [facility] Blood lymphocytes/100 leukoc ytesOrdered By: Dr. Castro on 07-02-2022 Lymphocytes/100 WBC (Bld) 25.0 % 19-41 [facility] Blood monocytes/100 leukocyt esOrdered By: Dr. Castro on 07-02-2022 Monocytes/100 WBC (Bld) 2.5 % 0-10 [facility] Blood platelet mean volumeOr dered By: Dr. Castro on 07-02-2022 Platelet mean volume (Bld) [Entitic vol] 9.8 fL 6.2-12.0 [facility] Determination of erythrocyte mean corpuscular volume (MCV)Ordered By: Dr. Castro on 07-02-2022 MCV (RBC) [Entitic vol] 84.8 fL 81-99 [facility] Glucose Glucometer (BldC) [M ass/Vol]Ordered By: Dr. Castro on 07-02-2022 Glucose [Mass/Vol] 306 mg/dL 74-106 [facility] Comment on above: MANAGEMENT OF PATIEN T CARE PER NURSING PROTOCOL Hematocrit Auto (Bld) [Volum e fraction]Ordered By: Dr. Castro on 07-02-2022 Hematocrit (Bld) [Volume fraction] 46.2 % 37-47 [facility] Ketones Test strip Ql (U)Ord ered By: Dr. Castro on 07-02-2022 Ketones Ql (U) Negative Negative [facility] Laboratory - Chemistry and C hemistry - challengeOrdered By: Dr. Castro on 07-02-2022 CO2 [Moles/Vol] 29.0 mmol/L 21.0-32.0 [facility] Urea nitrogen/Creatinine [Mass ratio] 21.5 mg/mg 10-20 [facility] Laboratory - Hematology and Cell countsOrdered By: Dr. Castro on 07-02-2022 Erythrocyte distribution width (RBC) [Entitic vol] 38.7 fL 35.1-43.9 [facility] Erythrocyte distribution width (RBC) [Ratio] 12.8 % 11.6-14.6 [facility] Immature granulocytes/100 WBC (Bld) 0.900 % 0.0-0.9 [facility] Comment on above: IG% - Immature Granu locytes (promyelocytes, myelocytes and metamyelocytes) > 1% indicates that a LEFT SHIFT is Present. MCH (RBC) [Entitic mass] 28.8 pg 27.0-32.0 [facility] Nucleated RBC/100 WBC (Bld) [Ratio] 0 % 0[facility]5 [facility]Mass/Vol]Or dered By: Dr. Castro on 07-02-2022 MCHC (RBC) [Mass/Vol] 34.0 g/dL 32-36 [facility] Mucus LM Ql (Urine sed)Order ed By: Dr. Castro on 07-02-2022 Mucus Ql (Urine sed) 0 SEEN /hpf [facility] Nitrite Test strip Ql (U)Ord ered By: Dr. Castro on 07-02-2022 Nitrite Ql (U) Negative Negative [facility] No Panel InformationOrdered By: Dr. Castro on 07-02-2022 Estimated Creatinine Clearance Calc 69.12 ml/min [facility] Estimated GFR (MDRD) Amer 95 mL/min >60 [facility] Comment on above: GFR Calc Estimated GFR (MDRD) Non-Af Amer 78 mL/min >60 [facility] Comment on above: Non- GFR Calc Platelets bldOrdered By: Dr. Castro on 07-02-2022 Platelets (Bld) [#/Vol] 362 10*3/uL 150-450 [facility] Serum or plasma calcium pradip urement (mass/volume)Ordered By: Dr. Castro on 07-02-2022 Calcium [Mass/Vol] 8.8 mg/dL 8.5-10.1 [facility] Serum or plasma creatinine m easurement (mass/volume)Ordered By: Dr. Castro on 07-02-2022 Creatinine [Mass/Vol] 0.79 mg/dL 0.55-1.02 [facility] Comment on above: The validity of the calculated GFR & GFRAA in patients over 70 years has not been determined. Clinical correlation is essential. Serum or plasma urea nitroge n measurement (mass/volume)Ordered By: Dr. Castro on 07-02-2022 Urea nitrogen [Mass/Vol] 17 mg/dL 7-18 [facility] Squamous epithelial cells de tection in urine sediment by light microscopyOrdered By: Dr. Castro on 07-02-2022 Epithelial cells.squamous LM Ql (Urine sed) 0-5 SEEN /hpf 5-10 [facility] Thin prep Papanicolaou smear with manual screeningOrdered By: Dr. Castro on 07-02-2022 Thin prep Papanicolaou smear with manual screening 6 5-15 [facility] UA DIP, URINE (POC)on 2021 BILIRUBIN UA (POCT) Negative Negative [facility] CLARITY UA (POCT) Clear [facility] COLOR UA (POCT) Yellow [facility] GLUCOSE UA (POCT) 100 mg/dL Abnormal Negative mg/dL [facility] HEMOGLOBIN/BLOOD UA (POCT) Negative Negative [facility] KETONE UA (POCT) Negative Negative mg/dL [facility] LEUKOCYTES UA (POCT) Negative Negative [facility] NITRITE UA (POCT) Negative Negative [facility] PH UA (POCT) 5.5 4.5 - 8.0 [facility] SPECIFIC GRAVITY UA (POCT) 1.025 1.005 - 1.030 [facility] UROBILINOGEN UA (POCT) 0.2 E.U./dL Leonie l E.U./dL [facility] Urine blood detectionOrdered By: Dr. Castro on 07-02-2022 RBC Ql (U) Negative Negative [facility] RBC Ql (U) 0 SEEN /hpf 0-5 [facility] Urine clarityOrdered By: Dr. Castro on 07-02-2022 Clarity (U) Clear Clear [facility] Urine color determinationOrd ered By: Dr. Castro on 07-02-2022 Color (U) Yellow Yellow [facility] Urine glucose detectionOrder ed By: Dr. Castro on 07-02-2022 Glucose Ql (U) Normal mg/dl Normal [facility] Urine leukocyte esterase det ection by dipstickOrdered By: Dr. Castro on 07-02-2022 Leukocyte esterase Test strip Ql (U) Negative Negative [facility] Urine pHOrdered By: Dr. Houston morales on 07-02-2022 pH (U) 6.0 [pH] 5.0 - 8.0 [facility] Urine protein assay by test strip, semi-quantitativeOrdered By: Dr. Castro on 07-02-2022 Protein Ql (U) Negative Negative [facility] Urine sediment bacteria coun t by microscopy (number/high power field)Ordered By: Dr. Castro on 07-02-2022 Bacteria LM.HPF (Urine sed) [#/Area] RARE /hpf None Seen [facility] Urine specific gravity measu rementOrdered By: Dr. Castro on 07-02-2022 Specific gravity (U) [Rel density] 1.010 1.002-1.030 [facility] Urobilinogen Auto test strip Ql (U)Ordered By: Dr. Castro on 07-02-2022 Urobilinogen Ql (U) Normal mg/dl Normal [facility] XR Chest PA and Lateralon IMPRESSION: No acute radiographic abnormality. 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PSCB Transcribe Date/Time: Jun 27 2022 4:11P Dictated by : JANY POST MD This examination was interpreted and the report reviewed and electronically signed by: JANY POST MD on Jun 27 2022 4:12PM [facility] DIVISION OF RADIOLOGY * * *Final Report* [...] throughout the spine DIVISION OF RADIOLOGY Provider, [facility] - 06/27/2022 * * *Final Report* * [...] spine IMPRESSION IMPRESSION: No acute radiographic abnormality. 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OLIVE Transcribe Date/Time: Jun 27 2022 4:11P Dictated by : JANY POST MD This examination was interpreted and the report reviewed and electronically signed by: JANY POST MD on Jun 27 2022 4:12PM EST [facility] Radiology Study observation (narrative) [facility] XR Chest PA and LateralOrder ed By: Ccf Provider on 06-27-2022 [facility] UA DIP, URINE (POC)on 2021 BILIRUBIN UA (POCT) Negative Negative [facility] CLARITY UA (POCT) Clear [facility] COLOR UA (POCT) Yellow [facility] GLUCOSE UA (POCT) Negative Negative mg/dL [facility] HEMOGLOBIN/BLOOD UA (POCT) Negative Negative [facility] KETONE UA (POCT) Negative Negative mg/dL [facility] LEUKOCYTES UA (POCT) Trace Abnormal Negative [facility] NITRITE UA (POCT) Negative Negative [facility] PH UA (POCT) 5.0 4.5 - 8.0 [facility] Protein Ql (U) Negative Negative mg/dL [facility] SPECIFIC GRAVITY UA (POCT) 1.015 1.005 - 1.030 [facility] UROBILINOGEN UA (POCT) 0.2 E.U./dL Leonie l E.U./dL [facility] No Panel Informationon 06-20 Endomysial IgA Antibody Negative Negative [facility] Work Phone: Serum IgA measurement (units /volume)on 06-20-2022 IgA Qn (S) 234 mg/dL 87-352 [facility] Work Phone: Comment on above: Performed at: [address] [id number] Director: Lars Browne PhD, Phone: [phone] Serum or plasma C reactive p rotein measurement (mass/volume)on 06-20-2022 CRP [Mass/Vol] mg/L 0.0-3.0 [facility] Work Phone: Comment on above: C-Reactive Protein ( CRP) provides useful information for thediagnosis, therapy and monitoring of inflammatory processesand associated diseases. For the evaluation of Relative Riskfor Cardiovascular Disease, a High Sensitivity CRP (HSCRP)should be ordered. Serum tissue transglutaminas e IgA antibody assay (units/volume)on 06-20-2022 tTG IgA Qn (S) <2 U/mL 0-3 [facility] Work Phone: Comment on above: Negative 0 - 3 Weak Positive 4 - 10 Positive >10 Tissue Transglutaminase (tTG) has been identified as the endomysial antigen. Studies have demonstr- ated that endomysial IgA antibodies have over 99% specificity for gluten sensitive enteropathy. HbA1c (Bld)on 03-29-2022 Average glucose Estimated from glycated hemoglobin (Bld) [Mass/Vol] 169 mg/dL [facility] HbA1c (Bld) [Mass fraction] 7.5 % High 4.3 - 5.6 % [facility] XR Chest PA and Lateralon IMPRESSION: No acute findings. 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PSCB Transcribe Date/Time: Mar 13 2022 12:37P [...] USE_DIVISIO N OF RADIOLOGY Provider, Eliu puckett Dalton - 03/13/2022 * * *Final Report* * [...] degenerative changes. IMPRESSION IMPRESSION: No acute findings. 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OLIVE Transcribe Date/Time: Mar 13 2022 12:37P Dictated by : CLAUDIA WILSON MD This examination was interpreted and the report reviewed and electronically signed by: CLAUDIA WILSON MD on Mar 13 2022 12:44PM EST [facility] Radiology Study observation (narrative) [facility] XR Chest PA and LateralOrder ed By: Ccf Provider on 03-13-2022 [facility] GLUCOSE, BLOOD (POC)on 02-22 Glucose [Mass/Vol] 133 mg/dL Abnormal 74 - 99 mg/dL [facility] SURGICAL PATHOLOGYon 022 CASE REPORT Normal [facility] Comment on above: Order Comment: Speci men Type: TISSUE SPECIMEN Ordering Facility: [facility] Address: [address] [place] [id number] Result Comment: Surg [facility] Pathology Report Case: [id number] Authorizing Provider: Patti Manrique MD Collected: 02/22/2022 12:49 PM Ordering Location: SURGERY Received: 02/22/2022 03:59 PM Pathologist: Elaine Asencio MD Specimens: A) - ANTRUM (STOMACH) BIOPSY B) - ESOPHAGOGASTRIC JUNCTION BIOPSY C) - TRANSVERSE COLON POLYP Performed By: #### S #### [facility] CLIA [id number] [address] FINAL DIAGNOSIS Normal [facility] Comment on above: Order Comment: Speci men Type: TISSUE SPECIMEN Ordering Facility: [facility] Address: [address] [place] [address] Result Comment: A. G astric antrum, biopsies: - Benign gastric mucosa, negative for inflammatory infiltrates. B. Esophagogastric junction, biopsies: - Mild active inflammation involving esophageal squamous epithelium and gastric-type glandular mucosa. Negative for Molina's esophagus. C. Transverse colon, biopsy: - Tubular adenoma. Performed By: #### S #### [facility] CLIA [id number] [address] FINAL PERFORMING LAB Normal [facility] Comment on above: Order Comment: Speci shasta Type: TISSUE SPECIMEN Ordering Facility: [facility] Address: [address] [place] [address] Result Comment: Diag nostic interpretation performed at [facility], [address] [place] [address] CLIA# [id number] [employer] Net: Rosendo Powell M.D. Performed By: #### S #### [facility] CLIA [id number] [address] GROSS DESCRIPTION Normal [facility] Comment on above: Order Comment: Speci shasta Type: TISSUE SPECIMEN Ordering Facility: [facility] Address: [address] [place] [address] Result Comment: A. A NTRUM (STOMACH) BIOPSY. [...] in one cassette. Gross examination performed at [facility], [address] [place] [address] RSA February 23, 2022 12:47 PM Performed By: #### S #### [facility] CLIA [id number] [address] [facility] Atypical perinuclear antineu trophil cytoplasmic antibodies measurementon 01-15-2022 Neutrophil cytoplasmic Ab.perinuclear.atypica l IF (S) [Titer] <1:20 titer Neg:<1:20 [facility] Work Phone: Comment on above: The atypical pANCA p attern has been observed in asignificant percentage of patients with ulcerative colitis,primary sclerosing cholangitis and autoimmune hepatitis. Basophil percentageon 2021 Ammonia (P) [Moles/Vol] 23.0 umol/L 11-32 [facility] Work Phone: Cholesterol [Mass/Vol] 134 mg/dL <200 [facility] Work Phone: Comment on above: <200 mg/dL Desirable 200-240 mg/dL Borderline >240 mg/dL High Risk Triglyceride [Mass/Vol] 285 mg/dL [facility] Work Phone: Comment on above: The drugs N-Acetylcy steine and Metamizole may falsely depress this assay.Serum Triglycerides Reference Interval Normal <150 mg/dL Borderline high 150 - 199 mg/dL High 200 - 499 mg/dL Very High > or = 500 mg/dL HIV 1 and HIV-2 antibody ass ay with HIV-1 p24 antigen detectionon 01-15-2022 HIV 1+2 Ab+HIV1 p24 Ag IA Ql Non-Reactive Nonreactive [facility] Work Phone: INR in Blood by Coagulation assayon 01-15-2022 INR Coag (Bld) [Relative time] 1.0 {INR} [facility] Work Phone: Laboratory - Chemistry and C hemistry - challengeon 01-15-2022 CK [Catalytic activity/Vol] 382 U/L 26-192 [facility] Work Phone: Laboratory - Coagulationon 0 01-15-2022 PT Coag (PPP) [Time] 12.8 s 11.7-14.9 [facility] Work Phone: No Panel Informationon 01-15 Ceruloplasmin 29.3 mg/dL [facility] Work Phone: Haptoglobin 148 mg/dL [facility] Work Phone: Comment on above: Performed at: [employer] [address] [id number] Director: Lars Browne PhD, Phone: [phone] at: [employer] [address] [id number] Director: Aung Araujo MD, Phone: [phone] Hepatitis A IgM Antibody Negative Negative [facility] Work Phone: Hepatitis B Core IgM Antibody Negative Negative [facility] Work Phone: Hepatitis C Antibody (EIA) <0.1 s/co ratio [facility] Work Phone: Hepatitis C Antibody Comment Comment [facility] Work Phone: Comment on above: NegativeNot infected with HCV, unless recent infection issuspected or other evidence exists to indicate HCVinfection. Serum classic neutrophil cyt oplasmic antibody assay (units/volume)on 01-15-2022 Neutrophil cytoplasmic Ab.classic Qn (S) <1:20 titer Neg:<1:20 [facility] Work Phone: Serum mitochondria antibody detectionon 01-15-2022 Mitochondria Ab Ql (S) <20.0 Units W [facility] Work Phone: Comment on above: Negative 0.0 - 20.0 Equivocal 20.1 - 24.9 Positive >24.9Mitochondrial (M2) Antibodies are found in 90-96% ofpatients with primary biliary cirrhosis.Performed at: [id number] [place], [place] [id number] Director: Lars Browne PhD, Phone: [phone] Serum or plasma actin IgG an tibody assay (units/volume)on 01-15-2022 Actin IgG Qn 3 Units [facility] Work Phone: Comment on above: Negative 0 - 19 Weak positive 20 - 30 Moderate to strong positive >30 Actin Antibodies are found in 52-85% of patients with autoimmune hepatitis or chronic active hepatitis and in 22% of patients with primary biliary cirrhosis. Serum or plasma [id number] protein tumor marker measurement (units/volume)on 01-15-2022 AFP.tumor marker Qn 3.8 ng/mL [facility] Work Phone: Comment on above: [employer] El ectrochemiluminescence Immunoassay(ECLIA)Values obtained with different assay methods or kits cannotbe used interchangeably. Results cannot be interpreted asabsolute evidence of the presence or absence of malignantdisease.This test is not interpretable in females. Serum or plasma angiotensin converting enzyme measurement (enzymatic activity/volume)on 01-15-2022 Angiotensin converting enzyme [Catalytic activity/Vol] 21 U/L [facility] Work Phone: Serum or plasma cholesterol in HDL measurement (mass/volume)on 01-15-2022 Cholesterol in HDL [Mass/Vol] 26 mg/dL [facility] Work Phone: Comment on above: The drugs N-Acetylcy steine and Metamizole may falsely depress this assay. Reference Range HDL <40 mg/dL Low HDL Cholesterol HDL >or= 60 mg/dL High HDL Cholesterol Serum or plasma cholesterol in VLDL measurement (mass/volume)on 01-15-2022 Cholesterol in VLDL [Mass/Vol] 57 mg/dL 5-40 [facility] Work Phone: Serum or plasma ferritin ruchi surement (mass/volume)on 01-15-2022 Ferritin [Mass/Vol] 76 ng/mL 8-252 [facility] Work Phone: Serum or plasma hepatitis B virus surface antigen detection by immunoassayon 01-15-2022 HBV surface Ag IA Ql Negative Negative [facility] Work Phone: Serum or plasma low density lipoprotein (LDL) cholesterol measurement (mass/volume)on 01-15-2022 Cholesterol in LDL [Mass/Vol] 51 mg/dL 0-130 [facility] Work Phone: Serum perinuclear neutrophil cytoplasmic antibody titer by immunofluorescenceon 01-15-2022 Neutrophil cytoplasmic Ab.perinuclear IF (S) [Titer] <1:20 titer Neg:<1:20 [facility] Work Phone: Comment on above: The presence of posi tive fluorescence exhibiting P-ANCA orC-ANCA patterns alone is not specific for the diagnosis ofWegener's Granulomatosis (WG) or microscopic polyangiitis.Decisions about treatment should not be based solely onANCA IFA results. The [employer] AN[employer] Consensusrecommends follow up testing of positive sera with both AK-3 and MPO-ANCA enzyme immunoassays. As many as 5% serumsamples are positive only by EIA. Ref. AM J Clin [id number];111:507-513. Thin prep Papanicolaou smear with manual screeningon 01-15-2022 Thin prep Papanicolaou smear with manual screening 160 ug/dL [facility] Work Phone: Comment on above: Detection Limit = 5 Whole blood hemoglobin A1c/t otal hemoglobin ratio (mass fraction)on 01-15-2022 HbA1c (Bld) [Mass fraction] 7.1 % 3.8-5.6 [facility] Work Phone: Comment on above: Normal < 5.7 % Predi abetic 5.7 - 6.4 % Diabetic >or= 6.5 % Please note range changes. URINE CULTUREon 01-11-2022 Bacteria identified Cx Nom (U) >=100,000 CFU/ml Klebsiella pneumoniae Abnormal [facility] Urinalysis complete panel (U )on 01-10-2022 Bilirubin Ql (U) Negative Negative [facility] Clarity (Unsp spec) Clear Clear [facility] Color (U) Straw Yellow [facility] Epithelial cells LM.HPF (Urine sed) [#/Area] Few [facility] Glucose Test strip (U) [Mass/Vol] Negative Negative [facility] Hemoglobin Ql (U) 2+ Abnormal Negative [facility] Ketones Ql (U) Negative Negative [facility] Leukocyte esterase Test strip Ql (U) 1+ Abnormal Negative [facility] Nitrite Ql (U) Negative Negative [facility] pH (U) 6.0 [pH] 5.0 - 8.0 [facility] Protein (U) [Mass/Vol] Negative Negative Cl [facility] RBC LM.HPF (Urine sed) [#/Area] /[HPF] Abnormal 0-3 /HPF [facility] Specific gravity (U) [Rel density] 1.009 1.005 - 1.030 [facility] Urobilinogen Ql (U) Negative Negative [facility] WBC LM.HPF (Urine sed) [#/Area] 0-5 /HPF 0-5 /HPF [facility] UA DIP, URINE (POC)on 2021 BILIRUBIN UA (POCT) Negative Negative [facility] CLARITY UA (POCT) Clear [facility] COLOR UA (POCT) Yellow [facility] GLUCOSE UA (POCT) Negative Negative mg/dL [facility] HEMOGLOBIN/BLOOD UA (POCT) Large Abnormal Negative [facility] KETONE UA (POCT) Negative Negative mg/dL [facility] LEUKOCYTES UA (POCT) Trace Abnormal Negative [facility] NITRITE UA (POCT) Negative Negative [facility] PH UA (POCT) 5.0 4.5 - 8.0 [facility] Protein Ql (U) Negative Negative mg/dL [facility] SPECIFIC GRAVITY UA (POCT) 1.020 1.005 - 1.030 [facility] UROBILINOGEN UA (POCT) 0.2 E.U./dL Leonie l E.U./dL [facility] URINE CULTUREon 01-09-2022 Bacteria identified Cx Nom (U) Invalid Interpretation Code [facility] Giardia lamblia ag stool EIA on 12-15-2021 G. lamblia Ag IA Ql (Stl) Negative Negative [facility] Work Phone: Comment on above: Performed at: [address] [id number] Director: Lars Browne PhD, Phone: [phone] Absolute lymphocyte counton 12-14-2021 Lymphocytes Auto (Unsp spec) [#/Vol] 3.94 10*3/uL 0.83-4.51 [facility] Work Phone: Basophil percentageon 2021 Basophil percentage < 0.2 [facility] Work Phone: Basophils/100 WBC (Bld) 0.6 % 0-1 [facility] Work Phone: Bilirubin [Mass/Vol] 0.20 mg/dL 0.20-1.00 [facility] Work Phone: Comment on above: For patients on eltr ombopag therapy, use of Dimension Adrian TBIL is not recommended. Chloride [Moles/Vol] 108 mmol/L 98-107 [facility] Work Phone: Eosinophils/100 WBC (Bld) 2.6 % 0-5 [facility] Work Phone: Glucose [Mass/Vol] 174 mg/dL 74-106 [facility] Work Phone: Comment on above: Fasting Glucose resu lt greater than or equal to 126 mg/dL suggests DIABETES MELLITUS per A.D.A. criteria. Neutrophils (Bld) [#/Vol] 4.8 10*3/uL 2.0-7.7 [facility] Work Phone: Neutrophils/100 WBC (Bld) 49.5 % 47-70 [facility] Work Phone: Potassium [Moles/Vol] 4.1 mmol/L 3.5-5.1 [facility] Work Phone: Protein [Mass/Vol] 7.7 g/dL 6.4-8.2 [facility] Work Phone: Sodium [Moles/Vol] 137 mmol/L 136-145 [facility] Work Phone: WBC (Bld) [#/Vol] 9.8 10*3/uL 4.4-11.0 [facility] Work Phone: Blood erythrocytes count (nu mber/volume)on 12-14-2021 RBC (Bld) [#/Vol] 5.29 10*6/uL 4.2-5.4 [facility] Work Phone: Blood hemoglobin measurement (mass/volume)on 12-14-2021 Hemoglobin (Bld) [Mass/Vol] 15.6 g/dL 12.0-15.0 [facility] Work Phone: Blood lymphocytes/100 leukoc yteson 12-14-2021 Lymphocytes/100 WBC (Bld) 40.4 % 19-41 [facility] Work Phone: Blood monocytes/100 leukocyt eson 12-14-2021 Monocytes/100 WBC (Bld) 6.6 % 0-10 [facility] Work Phone: Blood platelet mean volumeon 12-14-2021 Platelet mean volume (Bld) [Entitic vol] 9.8 fL 6.2-12.0 [facility] Work Phone: Determination of erythrocyte mean corpuscular volume (MCV)on 12-14-2021 MCV (RBC) [Entitic vol] 86.0 fL 81-99 [facility] Work Phone: Direct bilirubinon 2 Bilirubin.direct [Mass/Vol] 0.07 mg/dL 0.00-0.30 [facility] Work Phone: Erythrocyte sedimentation ra lore 12-14-2021 ESR (Bld) [Velocity] 8 mm/h 0-30 [facility] Work Phone: Hematocrit Auto (Bld) [Volum e fraction]on 12-14-2021 Hematocrit (Bld) [Volume fraction] 45.5 % 37-47 [facility] Work Phone: Laboratory - Chemistry and C hemistry - challengeon 12-14-2021 ALP [Catalytic activity/Vol] 80 U/L 45-117 [facility] Work Phone: ALT [Catalytic activity/Vol] 27 U/L 13-56 [facility] Work Phone: CO2 [Moles/Vol] 24.0 mmol/L 21.0-32.0 [facility] Work Phone: Globulin (S) [Mass/Vol] 3.9 g/dL 2.2-4.2 [facility] Work Phone: Urea nitrogen/Creatinine [Mass ratio] 26.7 mg/mg 10-20 [facility] Work Phone: Laboratory - Hematology and Cell countson 12-14-2021 Erythrocyte distribution width (RBC) [Entitic vol] 41.4 fL 35.1-43.9 [facility] Work Phone: Erythrocyte distribution width (RBC) [Ratio] 13.4 % 11.6-14.6 [facility] Work Phone: Immature granulocytes/100 WBC (Bld) 0.300 % 0.0-0.9 [facility] Work Phone: Comment on above: IG% - Immature Granu locytes (promyelocytes, myelocytes and metamyelocytes) > 1% indicates that a LEFT SHIFT is Present. MCH (RBC) [Entitic mass] 29.5 pg 27.0-32.0 [facility] Work Phone: Nucleated RBC/100 WBC (Bld) [Ratio] 0 % 0-5 [facility] Work Phone: MCHC Auto (RBC) [Mass/Vol]on 12-14-2021 MCHC (RBC) [Mass/Vol] 34.3 g/dL 32-36 [facility] Work Phone: No Panel Informationon 12-14 Centromere B Antibody <0.2 AI [facility] Work Phone: Endomysial IgA Antibody Negative Negative [facility] Work Phone: Estimated GFR (MDRD) Amer 122 mL/min >60 [facility] Work Phone: Comment on above: GFR Calc Estimated GFR (MDRD) Non-Af Amer 101 mL/min >60 [facility] Work Phone: Comment on above: Non- GFR Calc ICE SCRAPER Antibody 0.2 AI [facility] Work Phone: Thyroid Stimulating Hormone (TSH) 0.93 uIU/mL 0.358-3.74 [facility] Work Phone: Platelets bldon 12-14-2021 Platelets (Bld) [#/Vol] 298 10*3/uL 150-450 [facility] Work Phone: Serum DNA double strand anti body assay (units/volume)on 12-14-2021 DNA double strand Ab Qn (S) [IU]/mL [facility] Work Phone: Comment on above: Negative <5 Equivoca l 5 - 9 Positive >9 Serum Miguelina-1 antibody assay (u nits/volume)on 12-14-2021 Miguelina-1 extractable nuclear Ab Qn (S) <0.2 [facility] Work Phone: Serum Scl-70 extractable nuc lear antibody assay (units/volume)on 12-14-2021 SCL-70 extractable nuclear Ab Qn (S) <0.2 [facility] Work Phone: Serum Ashraf extractable nucl ear antibody detectionon 12-14-2021 Ashraf extractable nuclear Ab Ql (S) <0.2 [facility] Work Phone: Serum or plasma C reactive p rotein measurement (mass/volume)on 12-14-2021 CRP [Mass/Vol] mg/L 0.0-3.0 [facility] Work Phone: Comment on above: C-Reactive Protein ( CRP) provides useful information for thediagnosis, therapy and monitoring of inflammatory processesand associated diseases. For the evaluation of Relative Riskfor Cardiovascular Disease, a High Sensitivity CRP (HSCRP)should be ordered. Serum or plasma IgA measurem ent (mass/volume)on 12-14-2021 IgA [Mass/Vol] 231 mg/dL [facility] Work Phone: Serum or plasma albumin pradip urement (mass/volume)on 12-14-2021 Albumin [Mass/Vol] 3.8 g/dL 3.2-5.0 [facility] Work Phone: Serum or plasma albumin/glob ulin mass ratioon 12-14-2021 Albumin/Globulin [Mass ratio] 1.0 {ratio} 0.9-2.4 [facility] Work Phone: Serum or plasma calcium pradip urement (mass/volume)on 12-14-2021 Calcium [Mass/Vol] 8.3 mg/dL 8.5-10.1 [facility] Work Phone: Serum or plasma creatinine m easurement (mass/volume)on 12-14-2021 Creatinine [Mass/Vol] 0.64 mg/dL 0.55-1.02 [facility] Work Phone: Comment on above: The validity of the calculated GFR & GFRAA in patients over 70 years has not been determined. Clinical correlation is essential. Serum or plasma gastrin pradip urement (mass/volume)on 12-14-2021 Gastrin [Mass/Vol] 26 pg/mL [facility] Work Phone: Comment on above: Siemens Immulite 200 0 Immunochemiluminometric assay (ICMA)Values obtained with different assay methods or kits cannotbe used interchangeably. Results cannot be interpreted asabsolute evidence of the presence or absence of malignantdisease.Performed at: [employer] [id number] Director: Lars Browne PhD, Phone: [phone] at: [facility] [employer] [id number] Director: Aung Araujo MD, Phone: [phone] Serum or plasma urea nitroge n measurement (mass/volume)on 12-14-2021 Urea nitrogen [Mass/Vol] 17 mg/dL 7-18 [facility] Work Phone: Serum tissue transglutaminas e IgA antibody assay (units/volume)on 12-14-2021 tTG IgA Qn (S) <2 U/mL [facility] Work Phone: Comment on above: Negative 0 - 3 Weak Positive 4 - 10 Positive >10 Tissue Transglutaminase (tTG) has been identified as the endomysial antigen. Studies have demonstr- ated that endomysial IgA antibodies have over 99% specificity for gluten sensitive enteropathy. Thin prep Papanicolaou smear with manual screeningon 12-14-2021 Thin prep Papanicolaou smear with manual screening 31 U/L 15-37 [facility] Work Phone: Thin prep Papanicolaou smear with manual screening 5 5-15 [facility] Work Phone: Thin prep Papanicolaou smear with manual screening 194 U/L 84-246 [facility] Work Phone: XR Chest PA and Lateralon IMPRESSION: Stable exam without acute findings. 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OLIVE Transcribe Date/Time: Aug 14 2021 4:30P Dictated by : CLAUDIA WILSON MD This examination was interpreted and the report reviewed and electronically signed by: CLAUDIA WILSON MD on Aug 14 2021 4:30PM [facility] DIVISION OF RADIOLOGY * * *Final Report* [...] IMPRESSION IMPRESSION: Stable exam without acute findings. 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[employer] Transcribe Date/Time: Aug 14 2021 4:30P Dictated by : CLAUDIA WILSON MD This examination was interpreted and the report reviewed and electronically signed by: CLAUDIA WILSON MD on Aug 14 2021 4:30PM EST [facility] Radiology Study observation (narrative) [facility] XR Chest PA and LateralOrder ed By: Ccf Provider on 08-14-2021 [facility] XR Chest PA and Lateralon IMPRESSION: No acute radiographic abnormality. 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[employer] Transcribe Date/Time: Mar 22 2021 7:32P Dictated by : ÁLVARO LOUISE MD This examination was interpreted and the report reviewed and electronically signed by: ÁLVARO LOUISE MD on Mar 22 2021 7:33PM [facility] DIVISION OF RADIOLOGY * * *Final Report* [...] spine. Aortic atherosclerosis. DIVISION OF RADIOLOGY Provider, [facility] Felicita [facility] - 03/22/2021 * * *Final Report* * [...] atherosclerosis. IMPRESSION IMPRESSION: No acute radiographic abnormality. 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[facility] Transcribe Date/Time: Mar 22 2021 7:32P Dictated by : ÁLVARO LOUISE MD This examination was interpreted and the report reviewed and electronically signed by: ÁLVARO LOUISE MD on Mar 22 2021 7:33PM EST [facility] Radiology Study observation (narrative) [facility] XR Chest PA and LateralOrder ed By: Ccf Provider on 03-22-2021 [facility] XR Lumbar spine Views W flex ion and W extensionon 08-17-2020 IMPRESSION: Degenerative changes as discussed. See discussion in result section of report for remainder of findings 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[facility] Transcribe Date/Time: Aug 17 2020 3:48P Dictated by : ABHJIEET MOYER DO This examination was interpreted and the report reviewed and electronically signed by: ABHIJEET MOYER DO on Aug 17 2020 3:50PM [facility] DIVISION OF RADIOLOGY * * *Final Report* [...] seen. DIVISION OF RADIOLOGY Provider, Eliu puckett Dalton - 08/17/2020 * * *Final Report* * [...] section of report for remainder of findings 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[employer] Transcribe Date/Time: Aug 17 2020 3:48P Dictated by : ABHIJEET MOYER DO This examination was interpreted and the report reviewed and electronically signed by: ABHIJEET MOYER DO on Aug 17 2020 3:50PM EST [facility] Radiology Study observation (narrative) [facility] XR Lumbar spine Views W flex ion and W extensionOrdered By: Ccf Provider on 08-17-2020 [facility] PROGRESSon 08-16-2020 PROGRESS HNO ID: [id number] Author: Deirrde Rosado) Ilana Service: ? Author Type: Physician Oil And Gas Drafter Type: Progress Notes Filed: 08/16/2020 10:41 AM [...] groin numbness. She was last evaluated via [facility] on 05/17/2020. At that time, she was [...] August 16, 2020 TIME: 10:09 AM PAGER: [facility] PROGRESSon 05-17-2020 PROGRESS HNO ID: [id number] Author: Deirdre Preciado (Pa) Service: ? Author Type: Physician Oil And Gas Drafter Type: Progress Notes Filed: 05/17/2020 10:13 AM [...] May 17, 2020 TIME: 9:13 AM [facility] Tele[facility] (NSFRVW) ----- GARLAND DE SANTIAGO ([id number]) 1960 F Date Time Provider Department 05/06/20 [...] d* FLUTICASONE PROPIONATE 50 MCG* Use 1 [place] in each nostril o* GABAPENTIN 300 MG [...] Status:Closed by DEIRDRE PRECIADO PA-C on 05/06/20 [facility] 05-05-2020 [facility] Telephone (NEADFV) ----- GARLAND DE SANTIAGO ([id number]) 1960 F Date Time Provider Department 05/05/20 [...] a time. For questions call patient at [phone]. Cresencio Nguyen Sec 05/05/2020 3:19 PM Signed Patient states the Percocet script should be to take two at a time. Please call her pharmacy to clarify. She uses [facility]. Their phone number is [phone]. Cresencio Nguyen Sec Deirdre Naidu PA-C 05/05/2020 3:29 PM Signed PDMP report unable to be viewed, medication sent to pharmacy. Sriram Bolanos, RN, RN 05/05/2020 3:38 PM Signed Spoke to [facility] pharmacist rx was sent correctly It was just to soon for refill. new rx was sent with increased dose. [facility] 11:12 AM Signed Patient calling and states she hasn't been able to sleep, wakes up in severe pain, wants to know if this is normal. Should she be taking something such as anti-inflammatory medication? Patient is asking for a call back at M [phone] Deirdre Naidu PA-C 05/06/2020 11:27 AM Signed [...] but may help her at night. Deirdre Naidu PA-C 05/06/2020 11:27 AM Signed Addended by: [...] d* FLUTICASONE PROPIONATE 50 MCG* Use 1 [place] in each nostril o* GABAPENTIN 300 MG [...] Encounter Status:Closed by SRIRAM BOLANOS on 05/05/20 [facility] Madhavi 05-04-2020 [facility] Telephone (NSFRVW) ----- ANYIGARLAND Kohli ([id number]) 1960 F Date Time Provider Department 05/04/20 [...] 7 days. BRENNA Class: C-II LUCY: No Cresencio TheresaJose Carlos Sec Allergies As of Date: [...] d* FLUTICASONE PROPIONATE 50 MCG* Use 1 [place] in each nostril o* GABAPENTIN 300 MG [...] by VANESSA GUILLERMO PA-C on 05/04/20 [facility] Basic Metabolic Panlon 04-30 Anion gap [Moles/Vol] 12 mmol/L Normal 9-18 [facility] Comment on above: Performed By: #### C BC, BMP ####[place] [phone] Calcium [Mass/Vol] 8.8 mg/dL Normal 8.5-10.5 [facility] Comment on above: Performed By: #### C BC, BMP ####[place] [phone] Chloride [Moles/Vol] 100 mmol/L Normal 98-110 [facility] Comment on above: Performed By: #### C BC, BMP ####[place] [phone] CO2 [Moles/Vol] 24 mmol/L Normal 23-32 [facility] Comment on above: Performed By: #### C BC, BMP ####[place] [phone] Creatinine [Mass/Vol] 0.66 mg/dL Low 0.70-1.40 [facility] Comment on above: Performed By: #### C BC, BMP ####[place] [phone] eGFR- Amer. >60 Normal >60 [facility] Comment on above: Performed By: #### C BC, BMP ####[place] [phone] GFR/1.73 sq M predicted among non-blacks MDRD (S/P/Bld) [Vol rate/Area] mL/min/{1.73_m2} Normal >60 [facility] Comment on above: Performed By: #### C BC, BMP ####[place] [phone] Glucose [Mass/Vol] 194 mg/dL High 65-100 [facility] Comment on above: Performed By: #### C BC, BMP ####[place] [phone] Potassium [Moles/Vol] 3.7 mmol/L Normal 3.5-5.0 [facility] Comment on above: Performed By: #### C BC, BMP ####[phone] Sodium [Moles/Vol] 136 mmol/L Normal 132-148 [facility] Comment on above: Performed By: #### C BC, BMP ####[place] [phone] Urea nitrogen [Mass/Vol] 20 mg/dL Normal 8-25 [facility] Comment on above: Performed By: #### C BC, BMP ####[phone] CBCon 04-30-2020 Absolute nRBC <0.01 Normal <0.01 [facility] Comment on above: Performed By: #### C BC, BMP #### [phone] Erythrocyte distribution width (RBC) [Ratio] 13.4 % Normal 11.5-15.0 [facility] Comment on above: Performed By: #### C BC, BMP #### [place] [phone] Hematocrit (Bld) [Volume fraction] 39.7 % Normal 36.0-46.0 [facility] Comment on above: Performed By: #### C BC, BMP #### [place] [phone] Hemoglobin (Bld) [Mass/Vol] 13.0 g/dL Normal 11.5-15.5 [facility] Comment on above: Performed By: #### C BC, BMP #### [place] [phone] MCH (RBC) [Entitic mass] 27.8 pG Normal 26.0-34.0 [facility] Comment on above: Performed By: #### C BC, BMP #### [place] [phone] MCHC (RBC) [Mass/Vol] 32.7 g/dL Normal 30.5-36.0 [facility] Comment on above: Performed By: #### C HIREN, BMP #### [place] [phone] MCV (RBC) [Entitic vol] 85.0 fL Normal 80.0-100.0 [facility] Comment on above: Performed By: #### C HIREN, BMP #### [place] [phone] Platelet mean volume (Bld) [Entitic vol] 9.9 fL Normal 9.0-12.7 [facility] Comment on above: Performed By: #### C HIREN, BMP #### [place] [phone] Platelets (Bld) [#/Vol] 330 10*3/uL Normal 150-400 [facility] Comment on above: Performed By: #### C BC, BMP #### [place] [phone] RBC (Bld) [#/Vol] 4.67 10*6/uL Normal 3.90-5.20 [facility] Comment on above: Performed By: #### C BC, BMP #### [place] [address] WBC (Bld) [#/Vol] 13.32 10*3/uL High 3.70-11.00 [facility] Comment on above: Performed By: #### C BC, BMP #### [facility] [address] [place] [address] NURSING PROGon 04-30-2020 NURSING PROG HNO ID: [id number] Author: Tarik Smith) HOWARD English Service: ? Author Type: Registered Nurse Type: Nursing Progress Note Filed: 04/29/2020 10:07 PM Note Text: Nursing Progress Note Patient Name: Garland De Santiago Patient Location: [facility]/ Daily Note:04/29/202047 Pt is alert and [...] note was completed by: Tarik English RN [facility] PROGRESSon 04-30-2020 PROGRESS HNO ID: [id number] Author: Deirdre Preciado (Pa) Service: Neurosurgery Author Type: Physician Oil And Gas Drafter Type: Progress Notes Filed: 04/30/2020 8:20 AM [...] contraindicated (fl,oh) 04/29/20 1845 pneumatic compression stockings (oh,oh) 04/29/20 1845 activity - mobilize patient (oh,wa) 04/27/20 0345 pneumatic compression stockings (oh,oh) 04/27/20 0345 graduated compression stockings (oh,wa) 04/27/20 0345 activity - mobilize patient (oh,wa) VTE Prophylaxis: VTE prophylaxis appropriate Garland De [...] 30, 2020 TIME: 8:18 AM PAGER/CONTACT #: [phone] [facility] THERAPY NTon 04-30-2020 THERAPY NT HNO ID: [id number] Author: Gisel (Pt) Thalia Service: Physical Therapy Author Type: Physical Therapist Type: Therapy (PT/OT/Speech/Resp) Filed: 04/30/2020 12:39 PM Note Text: Physical Therapy Evaluation SERVICE DATE: 04/30/2020 SERVICE TIME: 810 ROOM: [place] [address] Recommended Discharge Disposition: Home Anticipated Discharge Needs: [...] No Skilled Need Interventions Provided: Evaluation;Gait Training (96684) $ Evaluation-Low (68849) Billed Units: 1 unit Gait Training (97399) Treatment Minutes: 9 1 unit Skilled Intervention(s): [...] YARY, Lumbar Stenosis, Rt TKR, Refer to [facility] Patient Report: I feel good Home Environment [...] DATE: April 30, 2020 TIME: 12:37 PM [facility] THERAPY NT HNO ID: [id number] Author: Roxi (OtAureliano Diana Service: Occupational Therapy Author Type: Occupational Therapist Type: Therapy (PT/OT/Speech/Resp) Filed: 04/30/2020 10:55 AM Note Text: Occupational Therapy Evaluation SERVICE DATE: 04/30/2020 SERVICE TIME: 45 to 08 ROOM: [place] [address] Transfer From [facility] With BLE Pain X 4 Days, [...] Shoe Laces;Grab Bars-Shower;Hand Held Shower;Long Handled Shoe Horn;Resident Care Aid;Shower Chair;Long Handled Sponge OT Recommendations to Nursing: To Bathroom for ADL?s /and or Toileting;OOB for meals;Transfer to Chair;Other: See Comment(Pt has been up independent in room) Equipment: Other: See Comment(no device required) OT 6 Clicks Score: 24 Precautions/Activity Restrictions: Bed/Chair Alarm;Fall Risk;Lines/Tubes/Drains;S pine;Other: See Comments(Regular Diet) ASSESSMENT: Pt is a 59 year old female Transfer From [facility] With BLE Pain X 4 Days, [...] of Session: Sitting on Edge of Bed;Call [facility] in [place] Patient Disposition at End of [...] (ADL);Muscle Weakness (generalized) Interventions Provided: Evaluation;Therapeutic Activity (16061) $ Evaluation-Low (22977) Billed Units: 1 unit Therapeutic Activity (20475) Treatment Minutes: 10 1 unit Skilled Intervention(s): [...] Current Hospital Course: Chart reviewed; Transfer From [facility] With BLE Pain X 4 Days, And Symptoms Concerning For Cauda Equina, L4-5 Lumbar Spinal Stenosis With Neurogenic Claudication, S/P L4 Laminectomy, Decompression Of L4-5 Canal Stenosis With Bilateral L4, L5 Root Foraminotomies 04/29/20 Reason for Occupational Therapy Consult: L4,5 Lumbar Spinal Stenosis With neurogenic Claudication, S/P L4 Lami, Decompression Of L4,5 Canal Stenosis, and Bilateral L4,5 Root Foraminotomies, Refer to [facility] Relevant Past Medical History: Obesity 197 lbs, Smoker, DM II, YARY, Lumbar Stenosis, Rt TKR, Refer to [facility] Patient Report: I am feeling pretty good [...] complete details for this therapy evaluation/treatment. SIGNATURE: MEY Mcdonnell/Teri PATIENT NAME: Garland De Santiago DATE: April 30, 2020 TIME: 10:49 AM [facility] ANES POSTPROC EVALon 020 ANES POSTPROC EVAL HNO ID: [id number] Author: Rito York I Service: ? Author [...] April 29, 2020 TIME: 5:45 PM CSN: [id number] [facility] ANES PRE-OPon 04-29-2020 ANES PRE-OP HNO ID: [id number] Author: Apollo Reeder Service: ? Author Type: [...] (FLONASE) 50 mcg/actuation nasal spray Use 1 [place] in each nostril once daily. - albuterol [...] April 29, 2020 TIME: 2:16 PM CSN: [id number] [facility] Basic Metabolic Panlon 04-29 Anion gap [Moles/Vol] 12 mmol/L Normal 9-18 [facility] Comment on above: Performed By: #### C , BMP #### [place] [phone] Calcium [Mass/Vol] 9.6 mg/dL Normal 8.5-10.5 [facility] Comment on above: Performed By: #### C , BMP #### [place] [phone] Chloride [Moles/Vol] 103 mmol/L Normal 98-110 [facility] Comment on above: Performed By: #### C BC, BMP #### [place] [phone] CO2 [Moles/Vol] 25 mmol/L Normal 23-32 [facility] Comment on above: Performed By: #### C BC, BMP #### [place] [phone] Creatinine [Mass/Vol] 0.54 mg/dL Low 0.70-1.40 [facility] Comment on above: Performed By: #### C BC, BMP #### [place] [phone] eGFR- Amer. >60 Normal >60 [facility] Comment on above: Performed By: #### C BC, BMP #### [place] [phone] GFR/1.73 sq M predicted among non-blacks MDRD (S/P/Bld) [Vol rate/Area] mL/min/{1.73_m2} Normal >60 [facility] Comment on above: Performed By: #### C BC, BMP #### [phone] Glucose [Mass/Vol] 157 mg/dL High 65-100 [facility] Comment on above: Performed By: #### C BC, BMP #### [place] [phone] Potassium [Moles/Vol] 4.3 mmol/L Normal 3.5-5.0 [facility] Comment on above: Performed By: #### C BC, BMP #### [place] [phone] Sodium [Moles/Vol] 140 mmol/L Normal 132-148 [facility] Comment on above: Performed By: #### C BC, BMP #### [place] [phone] Urea nitrogen [Mass/Vol] 16 mg/dL Normal 8-25 [facility] Comment on above: Performed By: #### C BC, BMP #### [place] [phone] CASE MANAGEMon 04-29-2020 CASE MANAGEM HNO ID: [id number] Author: Arthur Thomas (Rn) HOWARD Decker Service: ? Author Type: Registered Nurse Type: Care Mgt Progress Note Filed: 04/29/2020 4:19 PM Note Text: CARE MANAGEMENT PROGRESS NOTE SERVICE DATE: 04/29/2020 SERVICE TIME: 11:05 AM LOS: 2 days Pt for surgery later today. PT and OT to see. I anticipate pt will need HC therapies. Pt offers choice of [facility] or [facility] from list provided. Referral placed. Will need HC order. Pt plans on staying at [address] [place] [address] and offers a contact # of [phone] 1600--pt accepted by [facility] for home therapies. SIGNATURE: Arthur Decker RN PATIENT NAME: Garland De Santiago DATE: April 29, 2020 TIME: 11:05 AM PAGER/CONTACT #: [phone] [facility] CBCon 04-29-2020 Absolute nRBC <0.01 Normal <0.01 [facility] Comment on above: Performed By: #### C , BMP #### [place] [phone] Erythrocyte distribution width (RBC) [Ratio] 13.2 % Normal 11.5-15.0 [facility] Comment on above: Performed By: #### C , BMP #### [place] [phone] Hematocrit (Bld) [Volume fraction] 43.2 % Normal 36.0-46.0 [facility] Comment on above: Performed By: #### C , BMP #### [place] [phone] Hemoglobin (Bld) [Mass/Vol] 14.5 g/dL Normal 11.5-15.5 [facility] Comment on above: Performed By: #### C BC, BMP #### [place] [address] MCH (RBC) [Entitic mass] 27.9 pG Normal 26.0-34.0 [facility] Comment on above: Performed By: #### C BC, BMP #### [place] [address] MCHC (RBC) [Mass/Vol] 33.6 g/dL Normal 30.5-36.0 [facility] Comment on above: Performed By: #### C BC, BMP #### [place] [phone] MCV (RBC) [Entitic vol] 83.2 fL Normal 80.0-100.0 [facility] Comment on above: Performed By: #### C HIREN, BMP #### [place] [phone] Platelet mean volume (Bld) [Entitic vol] 9.6 fL Normal 9.0-12.7 [facility] Comment on above: Performed By: #### C HIREN, BMP #### [place] [phone] Platelets (Bld) [#/Vol] 338 10*3/uL Normal 150-400 [facility] Comment on above: Performed By: #### C HIREN, BMP #### [place] [phone] RBC (Bld) [#/Vol] 5.19 10*6/uL Normal 3.90-5.20 [facility] Comment on above: Performed By: #### C HIREN, BMP #### [phone] WBC (Bld) [#/Vol] 10.06 10*3/uL Normal 3.70-11.00 [facility] Comment on above: Performed By: #### Margaret MARADIAGA, BMP #### [place] [phone] CONSULT PROGon 04-29-2020 CONSULT PROG HNO ID: [id number] Author: Gerri Small Service: Neurosurgery Author Type: [...] Prophylaxis/Anticoagulant s 04/27/20 0345 pneumatic compression stockings (oh,wa) 04/27/20 0345 graduated compression stockings (oh,wa) 04/27/20 0345 activity - mobilize patient (oh,wa) VTE Prophylaxis: VTE prophylaxis appropriate SIGNATURE: Deirdre Naidu PA-C PATIENT NAME: Garland De Santiago DATE: April 29, 2020 TIME: 10:45 AM PAGER/CONTACT #: [phone] Staff addendum ? Mrs. De Santiago is [...] root foraminotomy Gerri Small MD Staff, Neurosurgery [facility] NURSING PROGon 04-29-2020 NURSING PROG HNO ID: [id number] Author: Martha Smith) HOWARD Allen Service: ? [...] note was completed by: Martha Allen RN [facility] NURSING PROG HNO ID: [id number] Author: Martha Smith) HOWARD Allen Service: ? Author Type: Registered Nurse Type: Nursing Progress Note Filed: 04/29/2020 1:23 PM Note Text: Nursing Progress Note Patient Name: Garland De Santiago Patient Location: Daily Note:Heplock intact and flushes well.Remains NPO.To O.R. via bed. This note was completed by: Martha Allen RN [facility] NURSING PROG HNO ID: [id number] Author: Martha (Rn) HOWARD Allen Service: ? [...] note was completed by: Martha Allen RN [facility] OPERATIVE NOon 04-29-2020 OPERATIVE NO HNO ID: [id number] Author: Gerri Small Service: Neurosurgery Author Type: Physician Type: Operative Report Filed: 04/29/2020 5:12 PM Note Text: OPERATIVE/PROCEDURE REPORT LOG ID: [id number] SURGERY/PROCEDURE DATE: 04/29/2020 INCISION/PROCEDURE START TIME: 3:22 PM INCISION CLOSE/PROCEDURE END TIME: 5:06 PM SURGEON(S)/PROCEDURALIST( S) AND RESEARCH ELECTRICIAN(S): Surgeon(s) and Role: * Gerri Small - Primary Physician Oil And Gas Drafter: Deirdre Preciado (Pa) ANESTHESIA: General PRE-OP/PRE-PROCEDURE DIAGNOSIS: [...] space level. Level was marked with permanent marker.?engraving supervisor radiologist??reviewed the image remotely and confirmed the [...] 29, 2020 TIME: 5:09 PM PAGER/CONTACT #: [phone] [facility] PROGRESSon 04-29-2020 PROGRESS HNO ID: [id number] Author: Sari Knutson Service: Hospital Medicine Author [...] symptoms concerning for cauda equina. Transferred from [facility] for further evaluation. Seen by Neurosurgery, they [...] Prophylaxis/Anticoagulant s 04/27/20 0345 pneumatic compression stockings ([place]) 04/27/20 0345 graduated compression stockings ([place] 04/27/20 0345 activity - mobilize patient ([place]) VTE Prophylaxis: VTE prophylaxis appropriate SIGNATURE: Janelle Kaufman MD PATIENT NAME: Garland De Santiago DATE: April 29, 2020 TIME: 9:19 AM PAGER: [phone] I have seen and evaluated the patient and discussed the case with the resident physician. I have verified and updated the resident?s note to include the final assessment and plan. Sari Knutson MD [facility] PT EDon 04-29-2020 PT ED HNO ID: [id number] Author: Derick (Rn) HOWARD Britt Service: Podiatry [...] None Electronically Signed By: Derick Britt RN [facility] THERAPY NTon 04-29-2020 THERAPY NT HNO ID: [id number] Author: Shazia PhanPt) Jus Service: Physical Therapy Author Type: Physical Therapist Type: Therapy (PT/OT/Speech/Resp) Filed: 04/29/2020 8:09 AM Note Text: PHYSICAL THERAPY MISSED VISIT SERVICE DATE: 04/29/2020 SERVICE TIME: 805 to 805 ROOM: [place] [address] Attempted Evaluation. Patient not seen due to (surgery today) SIGNATURE: Shazia Luu PT PATIENT NAME: Garland De Santiago DATE: April 29, 2020 TIME: 8:07 AM [facility] XR LUMBAR 1Von 04-29-2020 XR LUMBAR 1V [...] for surgical planning. IMPRESSION: 1. Surgical planning. 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OLIVE Transcribe Date/Time: Apr 29 2020 3:14P Dictated by : BERTHA JENKINS MD This examination was interpreted and the report reviewed and electronically signed by: BERTHA JENKINS MD on Apr 29 2020 3:16PM EST [id number] Normal [facility] XR VERIFY LEVEL [id number] 04-29-2020 XR VERIFY LEVEL L-[id number] * * [...] phone and Skype during the surgical procedure. 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OLIVE Transcribe Date/Time: Apr 29 2020 3:36P Dictated by : BERTHA JENKINS MD This examination was interpreted and the report reviewed and electronically signed by: BERTHA JENKINS MD on Apr 29 2020 3:37PM EST [id number] [facility] Basic Metabolic Panlon 04-28 Anion gap [Moles/Vol] 14 mmol/L Normal 9-18 [facility] Comment on above: Performed By: #### C BC, BMP, B12, SERFOL ####[facility] [place], [place] [phone] Calcium [Mass/Vol] 9.7 mg/dL Normal 8.5-10.5 [facility] Comment on above: Performed By: #### C BC, BMP, B12, SERFOL ####[place] [phone] Chloride [Moles/Vol] 102 mmol/L Normal 98-110 [facility] Comment on above: Performed By: #### C BC, BMP, B12, SERFOL ####[place] [phone] CO2 [Moles/Vol] 23 mmol/L Normal 23-32 [facility] Comment on above: Performed By: #### C BC, BMP, B12, SERFOL ####[place] [phone] Creatinine [Mass/Vol] 0.43 mg/dL Low 0.70-1.40 [facility] Comment on above: Performed By: #### C BC, BMP, B12, SERFOL ####[place] [phone] eGFR- Amer. >60 Normal >60 [facility] Comment on above: Performed By: #### C BC, BMP, B12, SERFOL ####[place] [phone] GFR/1.73 sq M predicted among non-blacks MDRD (S/P/Bld) [Vol rate/Area] mL/min/{1.73_m2} Normal >60 [facility] Comment on above: Performed By: #### C BC, BMP, B12, SERFOL ####[place] [phone] Glucose [Mass/Vol] 212 mg/dL High 65-100 [facility] Comment on above: Performed By: #### C BC, BMP, B12, SERFOL ####[place] [phone] Potassium [Moles/Vol] 4.6 mmol/L Normal 3.5-5.0 [facility] Comment on above: Result Comment: Revi ewed Performed By: #### C BC, BMP, B12, SERFOL ####[place] [phone] Sodium [Moles/Vol] 139 mmol/L Normal 132-148 [facility] Comment on above: Performed By: #### C BC, BMP, B12, SERFOL ####[place] [phone] Urea nitrogen [Mass/Vol] 15 mg/dL Normal 8-25 [facility] Comment on above: Performed By: #### C BC, BMP, B12, SERFOL ####[place] [phone] CBCon 04-28-2020 Absolute nRBC <0.01 Normal <0.01 [facility] Comment on above: Performed By: #### C BC, BMP, B12, SERFOL ####[address] Erythrocyte distribution width (RBC) [Ratio] 13.2 % Normal 11.5-15.0 [facility] Comment on above: Performed By: #### C BC, BMP, B12, SERFOL ####[address] Hematocrit (Bld) [Volume fraction] 42.1 % Normal 36.0-46.0 [facility] Comment on above: Performed By: #### C BC, BMP, B12, SERFOL ####[place] [phone] Hemoglobin (Bld) [Mass/Vol] 14.2 g/dL Normal 11.5-15.5 [facility] Comment on above: Performed By: #### C BC, BMP, B12, SERFOL ####[place] [phone] MCH (RBC) [Entitic mass] 28.1 pG Normal 26.0-34.0 [facility] Comment on above: Performed By: #### C BC, BMP, B12, SERFOL ####[address] [phone] MCHC (RBC) [Mass/Vol] 33.7 g/dL Normal 30.5-36.0 [facility] Comment on above: Performed By: #### C BC, BMP, B12, SERFOL ####[address] [phone] MCV (RBC) [Entitic vol] 83.4 fL Normal 80.0-100.0 [facility] Comment on above: Performed By: #### C BC, BMP, B12, SERFOL ####[address] [phone] Platelet mean volume (Bld) [Entitic vol] 9.8 fL Normal 9.0-12.7 [facility] Comment on above: Performed By: #### C BC, BMP, B12, SERFOL ####[address] [phone] Platelets (Bld) [#/Vol] 347 10*3/uL Normal 150-400 [facility] Comment on above: Performed By: #### C BC, BMP, B12, SERFOL ####[address] [phone] RBC (Bld) [#/Vol] 5.05 10*6/uL Normal 3.90-5.20 [facility] Comment on above: Performed By: #### C BC, BMP, B12, SERFOL ####[address] [phone] WBC (Bld) [#/Vol] 12.23 10*3/uL High 3.70-11.00 [facility] Comment on above: Performed By: #### C BC, BMP, B12, SERFOL ####[address] [phone] ECG COMPLETEon 04-28-2020 ECG COMPLETE NAME : ANYIJULIA STEWART PID : [id number] : 1960 Gender : Female Race : ORD : [id number] Procedure Date : Apr 28 2020 08:36:55 Edit Date : Apr 28 2020 12:39:29 Diagnosis:Sinus rhythm Probable left atrial enlargement Borderline ECG Confirmed by HUY THAO MD (34) on 04/28/2020 12:39:26 PM Ventricular Rate : 72 BPM Atrial Rate : 73 BPM P-R Interval : 176 ms QRS Duration : 78 ms Q-T Interval : 411 ms QTC Calculation(Bazett) : 450 ms P [place] : 36 degrees R [place] : 6 degrees T [place] : 19 degrees Test Reason : Pre-OP Location : 400 : [facility] PK[facility]A Overread By : HUY THAO MD Edited By : HUY THAO MD Referred By : COREY RUBI Acquired by : DERICK FLORES [facility] Folate, Serumon 04-28-2020 Folate [Mass/Vol] 7.7 ng/mL Normal >4.7 [facility] Comment on above: Performed By: #### C BC, BMP, B12, SERFOL ####[facility] [place], [place] [phone] NURSING PROGon 04-28-2020 NURSING PROG HNO ID: [id number] Author: Megha (Rn) HOWARD Gregorio Service: ? Author Type: Registered Nurse Type: Nursing Progress Note Filed: 04/29/2020 6:34 AM Note Text: Nursing Progress Note Patient Name: Garland De Santiago Patient Location: [facility] Daily Note:Pt is in the room resting.She [...] note was completed by: Megha Gregorio RN [facility] NURSING PROG HNO ID: [id number] Author: Martha Allen RN Service: ? Author Type: Registered Nurse Type: Nursing Progress Note Filed: 04/28/2020 6:19 PM Note Text: Nursing Progress Note Patient Name: Garland De Santiago Patient Location: Daily Note:Heplock intact.Took diet well.No n/v.Voiding. Up and about.Showered.Denies pain. This note was completed by: Martha Allen RN [facility] NURSING PRO HNO ID: [id number] Author: Martha Allen RN Service: ? Author [...] note was completed by: Martha Allen RN [facility] NURSING PROG HNO ID: [id number] Author: Megha (Rn) HOWARD Gregorio Service: ? Author Type: Registered Nurse Type: Nursing Progress Note Filed: 04/27/2020 11:36 PM Note Text: Nursing Progress Note Patient Name: Garland De Santiago Patient Location: [facility]/ Daily Note:Pt is in the room resting.AANDOX3.Lungs are clear.Bowl sounds are normal.Pt is up independent.She is voiding normal She has n/t on BLE.Pt has scheduled and PRN pain meds. Pt is anxious. She has xanax to help with it..She is stable at this time.Call light within reach.Will continue to monitor. This note was completed by: Megha Gregorio RN [facility] PROGRESSon 04-28-2020 PROGRESS HNO ID: [id number] Author: Gerri Small Service: Neurosurgery Author Type: [...] Prophylaxis/Anticoagulant s 04/27/20 0345 pneumatic compression stockings ([place]) 04/27/20 0345 graduated compression stockings ([place]) 04/27/20 0345 activity - mobilize patient ([place]) VTE Prophylaxis: VTE prophylaxis appropriate SIGNATURE: KEVIN Smith PATIENT NAME: Garland De Santiago DATE: April 28, 2020 TIME: 9:25 AM PAGER/CONTACT #: [phone] Staff addendum ? Mrs. De Santiago is [...] midnight ? Gerri Small MD Staff, Neurosurgery [facility] PROGRESS HNO ID: [id number] Author: Sari Knutson Service: Hospital Medicine Author [...] symptoms concerning for cauda equina. Transferred from [facility] for further evaluation. Seen by Neurosurgery and [...] Prophylaxis/Anticoagulant s 04/27/20 0345 pneumatic compression stockings ([place]) 04/27/20 0345 graduated compression stockings ([place]) 04/27/20 0345 activity - mobilize patient ([place] VTE Prophylaxis: VTE prophylaxis appropriate SIGNATURE: Janelle Kaufman MD PATIENT NAME: Garland De Santiago DATE: April 28, 2020 TIME: 9:19 AM PAGER: [phone] I have seen and evaluated the patient and discussed the case with the resident physician. I have verified and updated the resident?s note to include the final assessment and plan. Sari Knutson MD [facility] THERAPY NTon 04-28-2020 THERAPY NT HNO ID: [id number] Author: Maday PhanOt/Ulices Santos Service: Occupational Therapy Author Type: Occupational Therapist Type: Therapy (PT/OT/Speech/Resp) Filed: 04/28/2020 10:08 AM Note Text: OCCUPATIONAL THERAPY MISSED VISIT SERVICE DATE: 04/28/2020 SERVICE TIME: 1000 to 1000 ROOM: [place] [address] Attempted Evaluation. Patient not seen due to Surgery. Spoke with RN who reported pt has agreed to surgery which is scheduled for April 29. OT will hold evaluation at this time and follow up post op when activity orders are updated and pt is appropriate to participate. SIGNATURE: Maday Santos OT/Teri PATIENT NAME: Garland De Santiago DATE: April 28, 2020 TIME: 10:07 AM [facility] Vitamin B12on 04-28-2020 Cobalamin (Vitamin B12) [Mass/Vol] 419 pg/mL Normal 232-1245 [facility] Comment on above: Performed By: #### C BC, BMP, B12, SERFOL ####[facility] [place], [place] [phone] APTTon 04-27-2020 aPTT Coag (Bld) [Time] 24.8 s Normal 23.0-32.4 [facility] Comment on above: Result Comment: Unfr actionated [...] laboratory APTT reagent in use throughout the [facility]. 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 Last discharge within 30 days: No Advance Directive: Current Advance Directive: None Scrap Sawyer Attempted to Assist with AD Completion: Yes [...] Resources: Family Family Name/Phone: Daughter Leila Mccormick [phone] Social Needs Food insecurity Worry: Patient refused [...] Completely I feel financially burdened by my qwy-af-omkwyb expenses for my prescription medication:: 0 - [...] depression, and anxiety FREEDOM OF CHOICE EXPLAINED: [place] of Choice Given: Yes Level of Care Discussed: Home Care Financial Disclosure Provided: Yes Financial Disclosure Comments: via careport Provider List: Home Care Provider list within the patient's requested geographic area shared with the patient/family: Yes within: 10 miles of zip code: [address] Quality and resource use metrics shared with [...] 27, 2020 TIME: 10:28 AM PAGER/CONTACT #: [phone] Normal [facility] CBCon 04-27-2020 Absolute nRBC <0.01 Normal <0.01 [facility] Comment on above: Performed By: #### P TT, CMP, CBC, MG1, PT ####[place] [phone] Erythrocyte distribution width (RBC) [Ratio] 13.5 % Normal 11.5-15.0 [facility] Comment on above: Performed By: #### P TT, CMP, CBC, MG1, PT ####[place] [phone] Hematocrit (Bld) [Volume fraction] 40.4 % Normal 36.0-46.0 [facility] Comment on above: Performed By: #### P TT, CMP, CBC, MG1, PT ####[place] [phone] Hemoglobin (Bld) [Mass/Vol] 13.6 g/dL Normal 11.5-15.5 [facility] Comment on above: Performed By: #### P TT, CMP, CBC, MG1, PT ####[place] [phone] MCH (RBC) [Entitic mass] 28.4 pG Normal 26.0-34.0 [facility] Comment on above: Performed By: #### P TT, CMP, CBC, MG1, PT ####[place] [phone] MCHC (RBC) [Mass/Vol] 33.7 g/dL Normal 30.5-36.0 [facility] Comment on above: Performed By: #### P TT, CMP, CBC, MG1, PT ####[place] [phone] MCV (RBC) [Entitic vol] 84.3 fL Normal 80.0-100.0 [facility] Comment on above: Performed By: #### P TT, CMP, CBC, MG1, PT ####[address] [phone] Platelet mean volume (Bld) [Entitic vol] 9.6 fL Normal 9.0-12.7 [facility] Comment on above: Performed By: #### P TT, CMP, CBC, MG1, PT ####[address] [phone] Platelets (Bld) [#/Vol] 307 10*3/uL Normal 150-400 [facility] Comment on above: Performed By: #### P TT, CMP, CBC, MG1, PT ####[address] [phone] RBC (Bld) [#/Vol] 4.79 10*6/uL Normal 3.90-5.20 [facility] Comment on above: Performed By: #### P TT, CMP, CBC, MG1, PT ####[place] [phone] WBC (Bld) [#/Vol] 8.44 10*3/uL Normal 3.70-11.00 [facility] Comment on above: Performed By: #### P TT, CMP, CBC, MG1, PT ####[address] [phone] CONSULTon 04-27-2020 CONSULT HNO ID: [id number] Author: Gerri Small Service: Neurosurgery Author Type: [...] DM type 2 (diabetes mellitus, type 2) ([facility]) - Essential hypertension 05/23/2006 - Hemorrhage of [...] - APPENDECTOMY - COLONOSCOP W/ OR W/O [facility] SPEC 12/13/2011 Colonoscopy repeat 10 years - EGD W/O OR W/BRUSH/WASH 02/09/16 EGD - L'SCOPE DX W/WO BRUSHINGS/WASHINGS Laparoscopy - LAP CHOLECYSTECT/CHOLANGIOGRA PHY 10/07/06 - LIGATE FALLOPIAN TUBE Tubal ligation - PAST SURGICAL HISTORY OF 06/22/2010 right knee arthroscopy- by Dr Dawson ([facility]) - REMOVAL ADENOIDS,PRIMARY,<12 Y/O Adenoidectomy - REMOVAL OF TONSILS,<12 Y/O Tonsillectomy - TOTAL KNEE REPLACEMENT 07/2015 right - VAGINAL HYSTERECTOMY Hysterectomy, vaginal for menorrhagia FAMILY HISTORY Problem Relation Age of Onset - Hypertension Mother history of glaucoma - Cervical Cancer Mother - Asthma Mother - Heart Father NE x 2 - Cancer Father Lung, metastatic [...] (FLONASE) 50 mcg/actuation nasal spray, Use 1 [place] in each nostril once daily., Disp: 1 [...] April 27, 2020 TIME: 9:23 AM PAGER: [phone] Staff addendum Mrs. De Santiago is a [...] on 04/29/2020 Gerri Small MD Staff, Neurosurgery [facility] Comp Metabolic Panelon 04-27 Albumin [Mass/Vol] 3.8 g/dL Normal 3.5-5.0 [facility] Comment on above: Performed By: #### P TT, CMP, CBC, MG1, PT ####[place] [phone] ALP [Catalytic activity/Vol] 78 U/L Normal 34-123 [facility] Comment on above: Performed By: #### P TT, CMP, CBC, MG1, PT ####[place] [phone] ALT [Catalytic activity/Vol] 13 U/L Normal 0-45 [facility] Comment on above: Result Comment: Kong connor present Performed By: #### P TT, CMP, CBC, MG1, PT ####[place] [phone] Anion gap [Moles/Vol] 8 mmol/L Low 9-18 [facility] Comment on above: Performed By: #### P TT, CMP, CBC, MG1, PT ####[place] [phone] AST [Catalytic activity/Vol] U/L Low 7-40 [facility] Comment on above: Performed By: #### P TT, CMP, CBC, MG1, PT ####[place] [phone] Bilirubin [Mass/Vol] mg/dL Low 0.2-1.3 [facility] Comment on above: Performed By: #### P TT, CMP, CBC, MG1, PT ####[place] [phone] Calcium [Mass/Vol] 8.9 mg/dL Normal 8.5-10.5 [facility] Comment on above: Performed By: #### P TT, CMP, CBC, MG1, PT ####[place] [phone] Chloride [Moles/Vol] 104 mmol/L Normal 98-110 [facility] Comment on above: Performed By: #### P TT, CMP, CBC, MG1, PT ####[place] [phone] CO2 [Moles/Vol] 26 mmol/L Normal 23-32 [facility] Comment on above: Performed By: #### P TT, CMP, CBC, MG1, PT ####[place] [phone] Creatinine [Mass/Vol] 0.57 mg/dL Low 0.70-1.40 [facility] Comment on above: Performed By: #### P TT, CMP, CBC, MG1, PT ####[place] [phone] eGFR- Amer. >60 Normal >60 [facility] Comment on above: Performed By: #### P TT, CMP, CBC, MG1, PT ####[place] [phone] GFR/1.73 sq M predicted among non-blacks MDRD (S/P/Bld) [Vol rate/Area] mL/min/{1.73_m2} Normal >60 [facility] Comment on above: Performed By: #### P TT, CMP, CBC, MG1, PT ####[place] [phone] Glucose [Mass/Vol] 117 mg/dL High 65-100 [facility] Comment on above: Performed By: #### P TT, CMP, CBC, MG1, PT ####[place] [phone] Potassium [Moles/Vol] 3.6 mmol/L Normal 3.5-5.0 [facility] Comment on above: Performed By: #### P TT, CMP, CBC, MG1, PT ####[place] [phone] Protein [Mass/Vol] 6.4 g/dL Normal 6.0-8.4 [facility] Comment on above: Performed By: #### P TT, CMP, CBC, MG1, PT ####[facility] [place], [place] [phone] Sodium [Moles/Vol] 138 mmol/L Normal 132-148 [facility] Comment on above: Performed By: #### P TT, CMP, CBC, MG1, PT ####[facility] [place], [place] [phone] Urea nitrogen [Mass/Vol] 19 mg/dL Normal 8-25 [facility] Comment on above: Performed By: #### P TT, CMP, CBC, MG1, PT ####[facility] [place], [place] [phone] Coronavirus 2019on 0 COVID 19 Result 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 [facility] Comment on above: Result Comment: This test was developed and its performance characteristics determined by [facility]'s Tab Milner [facility] Pathology and Laboratory Medicine [place]. This test has been authorized by FDA under an Emergency Use Authorization (EUA). This test has been validated in accordance with the FDA's Guidance Document Policy for Diagnostics Testing in Laboratories Certified to Perform High Complexity Testing under CLIA prior to Emergency use Authorization for Coronavirus Disease 2019 during the Public Health Emergency issued on November 07, 2019. Performed By: #### C OVID ####[place] [id number] [place], [place] [phone] [address] [place], [place] [phone] COVID 19 Source SPECIAL EDUCATION PROFESSOR Nasopharyngeal Swab Normal [facility] Comment on above: Performed By: #### C OVID ####[facility] [place], [place] [phone] [address] [place], [place] [phone] HISTORY PHYSICALon 0 HISTORY PHYSICAL HNO ID: [id number] Author: May Huizar Service: Hospital Medicine Author Type: Physician Type: HANDP Filed: 04/27/2020 5:53 AM Note Text: DEPARTMENT OF HOSPITAL MEDICINE HISTORY AND PHYSICAL EXAM SERVICE DATE: 04/27/2020 SERVICE TIME: 3:38 AM Primary Care Physician: Willam Estrada MD NIGHT AND WEEKEND COVERAGE: EUNICE COVERAGE:Days: [phone], please page me for patient issues. Nights: [phone], please page [facility] Hospitalist Night Coverage pager: [phone]. Subjective CHIEF COMPLAINT: Bilateral leg pain of [...] 06/22/2010 right knee arthroscopy- by Dr Dawson ([facility]) - REMOVAL ADENOIDS,PRIMARY,<12 Y/O Adenoidectomy - REMOVAL OF TONSILS,<12 Y/O Tonsillectomy - TOTAL KNEE REPLACEMENT 07/2015 right - VAGINAL HYSTERECTOMY Hysterectomy, vaginal for menorrhagia FAMILY HISTORY Problem Relation Age of Onset - Hypertension Mother history of glaucoma - Cervical Cancer Mother - Asthma Mother - Heart Father NE x 2 - Cancer Father Lung, metastatic [...] (FLONASE) 50 mcg/actuation nasal spray, Use 1 [place] in each nostril once daily., Disp: 1 [...] symptoms concerning for cauda equina. Transferred from [facility] for further evaluation. #Cauda equina -5 days [...] +2. Positive straight leg raising -Labs at [facility] : Hb 13.8 Wbc 10 Plt:352 Cr [...] Prophylaxis/Anticoagulant s 04/27/20 0345 pneumatic compression stockings ([place], [place]) 04/27/20 0345 graduated compression stockings ([place]) 04/27/20 0345 activity - mobilize patient ([place]) VTE Prophylaxis: VTE prophylaxis appropriate Disposition: To be determined Plan of care discussed with: Provider, RN, Patient SIGNATURE: Preeti Gupta PATIENT NAME: Garland De Santiago DATE: April 27, 2020 TIME: 3:38 AM PAGER/CONTACT #: [phone] etx [phone] [facility] STAFF PHYSICIAN NOTE OF PERSONAL INVOLVEMENT IN [...] Neurosurgery consults. SIGNATURE: May Huizar MD PAGER: [phone] DATE of SERVICE: April 27, 2020 TIME of SERVICE: 4:05 AM Normal [facility] Magnesiumon 04-27-2020 Magnesium [Mass/Vol] 2.0 mg/dL Normal 1.7-2.6 [facility] Comment on above: Performed By: #### P TT, CMP, CBC, MG1, PT ####[facility] [place], [place] [phone] NURSING PROGon 04-27-2020 NURSING PROG HNO ID: [id number] Author: Divina (Rn) HOWARD Sheffield Service: ? [...] note was completed by: Divina Sheffield RN [facility] NURSING PROG HNO ID: [id number] Author: Jeff (Rn) HOWARD Hobbs Service: ? Author Type: Registered Nurse Type: Nursing Progress Note Filed: 04/27/2020 2:50 AM Note Text: Nursing Progress Note Patient Name: Garland De Santiago [facility] [place] [id number] Transfer Note: Patient transferred into room/unit PK3[facility] in stable condition. Actions taken: Patient belongings with patient. Patient safety maintained. Will continue to monitor. 0250: Awaiting orders. This note was completed by: Jeff Hobbs RN [facility] PROGRESSon 04-27-2020 PROGRESS HNO ID: [id number] Author: Sari Knutson Service: Hospital Medicine Author [...] symptoms concerning for cauda equina. Transferred from [facility] for further evaluation. ? L2-L3 nerve root [...] Prophylaxis/Anticoagulant s 04/27/20 034 pneumatic compression stockings ([place]) 04/27/20 034 graduated compression stockings [place] 04/27/20 034 activity - mobilize [place] VTE Prophylaxis: VTE prophylaxis appropriate SIGNATURE: Janelle Kaufman MD PATIENT NAME: Garland De Santiago DATE: April 27, 2020 TIME: 9:19 AM PAGER: [phone] I have seen and evaluated the patient and discussed the case with the resident physician. I have verified and updated the resident?s note to include the final assessment and plan. Sari Knutson MD [facility] Protimeon 04-27-2020 PT Coag (PPP) [Time] 1.0 s Normal 0.9-1.3 [facility] Comment on above: Result Comment: Yany min K Antagonist (VKA) Therapeutic Range: INR 2 to 3 (Target INR of 2.5) Note: For patients treated with VKA drugs, such as warfarin, the [place] [employer] 2012 Guideline recommends [...] Chest 2012, 141:7S-47S Mars RA, et al. [facility] 2017, 70: 252-289 Performed By: #### P TT, CMP, CBC, MG1, PT ####[place] [id number] [place], [place] [phone] PT Coag (PPP) [Time] 10.4 s Normal 9.7-13.0 [facility] Comment on above: Performed By: #### P TT, CMP, CBC, MG1, PT ####[place] [address] [place], [place] [phone] THERAPY NTon 04-27-2020 THERAPY NT HNO ID: [id number] Author: Maday PhanOt/L) Danielle Service: Occupational Therapy Author Type: Occupational Therapist Type: Therapy (PT/OT/Speech/Resp) Filed: 04/27/2020 4:19 PM Note Text: OCCUPATIONAL THERAPY MISSED VISIT SERVICE DATE: 04/27/2020 SERVICE TIME: to ROOM: [place] [address] Attempted Evaluation. Patient not seen due to pending surgery. Pt s/p Neuro consult earlier this date and is deciding about surgical intervention. Per chart, pt is NPO for possible surgery. OT will follow up post-op/as appropriate. SIGNATURE: Maday aSntos OT/L PATIENT NAME: Garland Orellanaz DATE: April 27, 2020 TIME: 4:16 PM Normal [facility] THERAPY NT HNO ID: [id number] Author: Shazia PhanPt) Jus Service: Physical Therapy Author Type: Physical Therapist Type: Therapy (PT/OT/Speech/Resp) Filed: 04/27/2020 8:19 AM Note Text: PHYSICAL THERAPY MISSED VISIT SERVICE DATE: 04/27/2020 SERVICE TIME: 817 to 817 ROOM: [place] [address] Attempted Evaluation. Patient not seen due to (bedrest per Dr garcia; awaits neuroconsult;possible surgery). SIGNATURE: Shazia Luu PT PATIENT NAME: Garland Orellanaz DATE: April 27, 2020 TIME: 8:19 AM Normal [facility] HOSPon 04-26-2020 HOSP Patient:Gurvinder De Santiago [...] Patient Name: Garland De Santiago Patient Location: [place] [address] [address] Transfer Note: Patient transferred into room/unit PK3[facility] in stable condition. Actions taken: Patient belongings with patient. Patient safety maintained. Will continue to monitor. 0250: Awaiting orders. This note was completed by: Jeff Hobbs RN Previous Version May Huizar MD 04/27/2020 5:53 AM Addendum DEPARTMENT OF HOSPITAL MEDICINE HISTORY AND PHYSICAL EXAM SERVICE DATE: 04/27/2020 SERVICE TIME: 3:38 AM Primary Care Physician: Willam Estrada MD NIGHT AND WEEKEND COVERAGE: EUNICE COVERAGE:Days: [phone], please page me for patient issues. Nights: [phone], please page [facility] Hospitalist Night Coverage pager: [phone]. Subjective CHIEF COMPLAINT: Bilateral leg pain of [...] DM type 2 (diabetes mellitus, type 2) ([facility]) - Essential hypertension 05/23/2006 - Hemorrhage of [...] 06/22/2010 right knee arthroscopy- by Dr Dawson ([facility]) - REMOVAL ADENOIDS,PRIMARY,<12 Y/O Adenoidectomy - REMOVAL OF TONSILS,<12 Y/O Tonsillectomy - TOTAL KNEE REPLACEMENT 07/2015 right - VAGINAL HYSTERECTOMY Hysterectomy, vaginal for menorrhagia FAMILY HISTORY Problem Relation Age of Onset - Hypertension Mother history of glaucoma - Cervical Cancer Mother - Asthma Mother - Heart Father NE x 2 - Cancer Father Lung, metastatic [...] (FLONASE) 50 mcg/actuation nasal spray, Use 1 [place] in each nostril once daily., Disp: 1 [...] symptoms concerning for cauda equina. Transferred from [facility] for further evaluation. #Cauda equina -5 days [...] +2. Positive straight leg raising -Labs at [facility] : Hb 13.8 Wbc 10 Plt:352 Cr [...] Prophylaxis/Anticoagulant s 04/27/20 0345 pneumatic compression stockings ([place] 04/27/20 0345 graduated compression stockings ([place]) 04/27/20 0345 activity - [place] VTE Prophylaxis: VTE prophylaxis appropriate Disposition: To be determined Plan of care discussed with: Provider, RN, Patient SIGNATURE: Preeti Gupta PATIENT NAME: Garland De Santiago DATE: April 27, 2020 TIME: 3:38 AM PAGER/CONTACT #: [phone] etx [id number] [facility] [place] STAFF PHYSICIAN NOTE OF PERSONAL INVOLVEMENT IN [...] Neurosurgery consults. SIGNATURE: May Huizar MD PAGER: [phone] DATE of SERVICE: April 27, 2020 TIME of SERVICE: 4:05 AM Previous Version Shazia Luu PT 04/27/2020 8:19 AM Signed PHYSICAL THERAPY MISSED VISIT SERVICE DATE: 04/27/2020 SERVICE TIME: 817 to 817 ROOM: [place] [address] Attempted Evaluation. Patient not seen due to [...] symptoms concerning for cauda equina. Transferred from [facility] for further evaluation. ? L2-L3 nerve root [...] Prophylaxis/Anticoagulant s 04/27/20 034 pneumatic compression stockings ([place] 04/27/20 034 graduated compression [place]ings [place] 04/27/20 034 activity - [place] V[place] Prophylaxis: VTE prophylaxis appropriate SIGNATURE: Janelle Kaufman MD PATIENT NAME: Garland De [place] DATE: April 27, 2020 TIME: 9:19 AM PAGER: [phone] I have seen and evaluated the patient [...] 06/22/2010 right knee arthroscopy- by Dr Dawson ([facility]) - REMOVAL ADENOIDS,PRIMARY,<12 Y/O Adenoidectomy - REMOVAL OF TONSILS,<12 Y/O Tonsillectomy - TOTAL KNEE REPLACEMENT 07/2015 right - VAGINAL HYSTERECTOMY Hysterectomy, vaginal for menorrhagia FAMILY HISTORY Problem Relation Age of Onset - Hypertension Mother history of glaucoma - Cervical Cancer Mother - Asthma Mother - Heart Father NE x 2 - Cancer Father Lung, metastatic [...] (FLONASE) 50 mcg/actuation nasal spray, Use 1 [place] in each nostril once daily., Disp: 1 [...] April 27, 2020 TIME: 9:23 AM PAGER: [phone] Staff addendum Mrs. 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 Last discharge within 30 days: No Advance Directive: Current Advance Directive: None Scrap Sawyer Attempted to Assist with AD Completion: Yes [...] Contact Resources: Family Family Name/Phone: David Mccormick [phone] Social Needs Food insecurity Worry: Patient refused [...] Completely I feel financially burdened by my [id number]-[id number] expenses for my prescription medication:: 0 - [...] depression, and anxiety FREEDOM OF CHOICE EXPLAINED: [place] of Choice Given: Yes Level of Care Discussed: Home Care Financial Disclosure Provided: Yes Financial Disclosure Comments: via careport Provider List: Home Care Provider list within the patient's requested geographic area shared with the patient/family: Yes within: 10 miles of zip code: [address] Quality and resource use metrics shared with [...] 27, 2020 TIME: 10:28 AM PAGER/CONTACT #: [phone] Maday Santos OT/L 04/27/2020 4:19 PM Signed OCCUPATIONAL THERAPY MISSED VISIT SERVICE DATE: 04/27/2020 SERVICE TIME: to ROOM: [place] [address] Attempted Evaluation. Patient not seen due to [...] Patient Name: Garland De [place] Patient Location: [place] [address] Daily Note: 0730 Received report and [...] Patient Name: Garland De Santiago Patient Location: [place] [address] Daily Note:Pt is in the room [...] symptoms concerning for cauda equina. Transferred from [facility] for further evaluation. Seen by Neurosurgery and [...] stockings ([place]) 04/27/20 0345 graduated compression stockings ([place]) 04/27/20 0345 activity - [place] VTE Prophylaxis: VTE prophylaxis appropriate SIGNATURE: Janelle Kaufman MD PATIENT NAME: Garland De [place] DATE: April 28, 2020 TIME: 9:19 AM PAGER: [phone] I have seen and evaluated the patient [...] Prophylaxis/Anticoagulant s 04/27/20 034 pneumatic compression stockings [place] 04/27/20 034 graduated compression stockings [place] 04/27/20 034 activity - [place] VTE Prophylaxis: VTE prophylaxis appropriate SIGNATURE: KEVIN Smith PATIENT NAME: Garland De [place] DATE: April 28, 2020 TIME: 9:25 AM PAGER/CONTACT #: [phone] Staff addendum ? Mrs. De Santiago is [...] 04/28/2020 SERVICE TIME: 1000 to 1000 ROOM: [place] [address] Attempted Evaluation. Patient not seen due to [...] Patient Name: Garland De [place] Patient Location: [place] [address] Daily Note:Pt is in the room [...] 04/29/2020 SERVICE TIME: 805 to 805 ROOM: [place] [address] Attempted Evaluation. Patient not seen due to [...] symptoms concerning for cauda equina. Transferred from [facility] for further evaluation. Seen by Neurosurgery, they [...] VTE Prophylaxis/Anticoagulant s 04/27/20344 pneumatic compression stockings ([place]) 04/27/20344 graduated compression stockings [place]) 04/27/20344 activity - [place]ize [place] VTE Prophylaxis: VTE prophylaxis appropriate SIGNATURE: Janelle Kaufman MD PATIENT NAME: Garland De [place] DATE: April 29, 2020 TIME: 9:19 AM PAGER: [phone] Martha Allen RN, RN 04/29/2020 10:02 AM Signed Nursing Progress Note Patient Name: Garland De Santiago Patient Location: [place] [address] [address] Daily Note:Heplock intact.Remains NPO except small sip [...] Prophylaxis/Anticoagulant s 04/27/20 0345 pneumatic compression stockings ([place]) 04/27/20 0345 graduated compression stockings ([place]) 04/27/20 0345 activity - mobilize patient ([place]) VTE Prophylaxis: VTE prophylaxis appropriate SIGNATURE: Deirdre Naidu PA-C PATIENT NAME: Garland De [place] DATE: April 29, 2020 TIME: 10:45 AM PAGER/CONTACT #: [phone] Staff addendum ? Mrs. De Santiago is [...] Small MD Staff, Neurosurgery Previous Version Arthur Dceker RN, RN 04/29/2020 11:17 AM Addendum CARE MANAGEMENT PROGRESS NOTE SERVICE DATE: 04/29/2020 SERVICE TIME: 11:05 AM LOS: 2 days Pt for surgery later today. PT and OT to see. I anticipate pt will need HC therapies. Pt offers choice of [facility] or [facility] from list provided. Referral placed. Will need HC order. Pt [address] [place] [address] and offers a contact # of [phone]. SIGNATURE: Arthur Decker RN PATIENT NAME: Garland De Santiago DATE: April 29, 2020 TIME: 11:05 AM PAGER/CONTACT #: [phone] Previous Version Martha Allen RN, RN 04/29/2020 1:23 PM Signed Nursing Progress Note Patient Name: Garland De Santiago Patient Location: [id number] Daily Note:Heplock intact and flushes well.Remains NPO.To [...] Signed By: Derick Britt RN Progress Notes ([facility]): Collin Medina APRN.CNP 04/26/2020 4:17 PM Signed VIRTUAL VISIT PROGRESS NOTE This is a virtual visit using HIPAA compliant video platform. It required patient-provider interaction for the medical decision making as documented below. Garland De Santiago is a 59 year old female seen for ED follow up. Patient evaluated at [facility] ED less than 24 hours ago [...] Lumbar strain. Given short term supply of [place] and instructed to follow up if symptoms [...] muscles. Pain is exacerbated with walking. Taking [place] with temporary improvement. Reports a fall ~1.5 [...] 06/22/2010 right knee arthroscopy- by Dr Dawson ([facility]) - REMOVAL ADENOIDS,PRIMARY,<12 Y/O Adenoidectomy - REMOVAL OF TONSILS,<12 Y/O Tonsillectomy - TOTAL KNEE REPLACEMENT 07/2015 right - VAGINAL HYSTERECTOMY Hysterectomy, vaginal for menorrhagia FAMILY HISTORY Problem Relation Age of Onset - Hypertension Mother history of glaucoma - Cervical Cancer Mother - Asthma Mother - Heart Father NE x 2 - Cancer Father Lung, metastatic [...] (FLONASE) 50 mcg/actuation nasal spray Use 1 [place] in each nostril once daily. - gabapentin [...] DVT given recent trauma/fall. Information sent via [facility] ED Passport system. Patient verbalized understanding and agreeable to plan. Collin Medina APRN.HOG FEEDER Normal [facility] AO MAIN OR Intraop Recordon 08-02-2017 [facility] MAIN [facility] Intraop Record [facility] [place] Anesthesiology Consultationo n 08-02-2017 Anesthesiology Consultation [facility] [place] Anesthesiology Consultation [facility] Depart Summaryon 08-02-2017 Depart Summary Normal [facility] Operative Report[facility] 08-02-2017 [place] [facility] Summary[facility] 08-02-2017 Outpatient Patient Summary [facility] .Auto Diffon 07-23-2017 Basophils Auto #/vol (Bld) 0.10 10 3/mcL Normal 0.00-0.19 [facility] [place] Comment on above: Performed By: #### B MP, GFR, CBC, ADIFF, ANEU ####[address] [place], [place] [address] Basophils/100 WBC Auto (Bld) 0.7 % Normal 0.0-2.5 [facility] [place] Comment on above: Performed By: #### B MP, GFR, CBC, ADIFF, ANEU ####[address] [place], [place] [address] Eosinophils 0.30 10 3/mcL Normal 0.00-0.40 [facility] [place] Comment on above: Performed By: #### B MP, GFR, CBC, ADIFF, ANEU ####[address] [place], [place] [address] Eosinophils/100 leukocytes 3.1 % Normal 0.0-7.0 [facility] [place] Comment on above: Performed By: #### B MP, GFR, CBC, ADIFF, ANEU ####[address] [place], [place] [address] Lymphocytes 3.70 10 3/mcL Normal 0.77-3.85 [facility] [place] Comment on above: Performed By: #### B MP, GFR, CBC, ADIFF, ANEU ####[address] [place], [place] [address] Lymphocytes/100 leukocytes 40.2 % Normal 10.0-50.0 [facility] [place] Comment on above: Performed By: #### B MP, GFR, CBC, ADIFF, ANEU ####[address] [place], [place] [address] Monocytes 0.60 10 3/mcL Normal 0.15-1.00 [facility] [place] Comment on above: Performed By: #### B MP, GFR, CBC, ADIFF, ANEU ####[address] [place], [place] [address] Monocytes/100 leukocytes 7.0 % Normal 1.7-13.0 [facility] [place] Comment on above: Performed By: #### B MP, GFR, CBC, ADIFF, ANEU ####[address] [place], [place] [address] Neutrophils/100 WBC Auto (Bld) 49.0 % Normal 37.0-80.0 [facility] [place] Comment on above: Performed By: #### B MP, GFR, CBC, ADIFF, ANEU ####[address] [place], [place] [address] .NEUABSon 07-23-2017 Neutrophils 4.50 10 3/mcL Normal 2.85-6.16 [facility] [place] Comment on above: Performed By: #### B MP, GFR, CBC, ADIFF, ANEU ####[address] [place], [place] [address] CBCon 07-23-2017 Erythrocyte distribution width Auto Ratio (RBC) 13.9 % Normal 11.5-14.5 [facility] [place] Comment on above: Performed By: #### B MP, GFR, CBC, ADIFF, ANEU ####[address] [place], [place] [address] Erythrocytes (RBC) 5.02 10 6/mcL Normal 4.20-5.40 [facility] ([place]) Comment on above: Performed By: #### B MP, GFR, CBC, ADIFF, ANEU ####[address] [place], [place] [address] Hematocrit (HCT) 42.7 % Normal 37.0-47.0 [facility] [place] Comment on above: Performed By: #### B MP, GFR, CBC, ADIFF, ANEU ####[address] [place], [place] [address] Hemoglobin mass conc (Bld) 14.5 G/dL Normal 12.0-16.0 [facility] [place] Comment on above: Performed By: #### B MP, GFR, CBC, ADIFF, ANEU ####[address] [place], [place] [address] MCH 28.9 pg Normal 27.0-31.2 [facility] [place] Comment on above: Performed By: #### B MP, GFR, CBC, ADIFF, ANEU ####[address] [place], [place] [address] MCHC mass conc (RBC) 33.9 G/dL Normal 33.0-37.0 [facility] ([place]) Comment on above: Performed By: #### B MP, GFR, CBC, ADIFF, ANEU ####[address] [place], [place] [address] MCV 85.0 fL Normal 80.0-94.0 [facility] [place] Comment on above: Performed By: #### B MP, GFR, CBC, ADIFF, ANEU ####[address] [place], [place] [address] Platelet mean volume (PMV) 8.5 fL Normal 7.4-10.4 [facility] [place] Comment on above: Performed By: #### B MP, GFR, CBC, ADIFF, ANEU ####[address] [place], [place] [address] Platelets 280 10 3/mcL Normal 130-400 [facility] [place] Comment on above: Performed By: #### B MP, GFR, CBC, ADIFF, ANEU ####[address] [place], [place] [address] WBC (Leukocytes) 9.20 10 3/mcL Normal 4.60-10.80 [facility] ([place]) Comment on above: Performed By: #### B MP, GFR, CBC, ADIFF, ANEU ####[address] [place], [place] [address] .GFRon 07-22-2017 eGFR (non-black) 116 ml/min/1.73sqm Normal [facility] [place] Comment on above: Result Comment: GFR Population [...] MP, GFR, CBC, ADIFF, ANEU ####[address] [place], [place] [address] eGFR (non-black) mL/min/{1.73_m2} Normal [facility] ([place]) Comment on above: Result Comment: GFR Population [...] MP, GFR, CBC, ADIFF, ANEU ####[address] [place], [place] [address] [facility] 07-22-2017 BUN/Creatinine Ratio 27 ratio Normal 7-27 [facility] ([place] Comment on above: Performed By: #### B MP, GFR, CBC, ADIFF, ANEU ####[address] [place], [place] [address] Calcium 9.3 mg/dL Normal 8.4-10.2 [facility] [place] Comment on above: Performed By: #### B MP, GFR, CBC, ADIFF, ANEU ####[address] [place], [place] [address] Chloride 101 mmol/L Normal 98-107 [facility] [place] Comment on above: Performed By: #### B MP, GFR, CBC, ADIFF, ANEU ####[address] [place], [place] [address] CO2 26 mmol/L Normal 22-29 [facility] [place] Comment on above: Performed By: #### B MP, GFR, CBC, ADIFF, ANEU ####[address] [place], [place] [address] Creatinine 0.6 mg/dL Normal 0.6-1.2 [facility] [place] Comment on above: Performed By: #### B MP, GFR, CBC, ADIFF, ANEU ####[address] [place], [place] [address] Electrolyte Balance 12.0 mEq/L Normal [facility] ([place]) Comment on above: Performed By: #### B MP, GFR, CBC, ADIFF, ANEU ####[address] [place], [place] [address] Glucose mass conc 159 mg/dL High 70-105 [facility] [place] Comment on above: Performed By: #### B MP, GFR, CBC, ADIFF, ANEU ####[address] [place], [place] [address] Potassium molar conc 3.6 mmol/L Normal 3.5-5.1 [facility] ([place] Comment on above: Performed By: #### B MP, GFR, CBC, ADIFF, ANEU ####[address] [place], [place] [address] Sodium 139 mmol/L Normal 136-146 [facility] [place] Comment on above: Performed By: #### B MP, GFR, CBC, ADIFF, ANEU ####[address] [place], [place] [address] Urea nitrogen 16.1 mg/dL Normal 7.0-18.0 [facility] [place] Comment on above: Performed By: #### B MP, GFR, CBC, ADIFF, ANEU ####[address] [place], [place] [address] Vital Signs Date Time Vital Sign Value Performing Clinician Facility 03-02-2025 15:45-0400 Diastolic blood pressure 66 mm[Hg] Jonnathan Mckeon DO Work Phone: [facility] 03-02-2025 15:45-0400 Systolic blood pressure 106 mm[Hg] Jonnathan Mckeon DO Work Phone: [facility] 03-02-2025 15:35-0400 Heart rate 77 /min Jonnathan Mckeon DO Work Phone: [facility] 03-02-2025 15:35-0400 SaO2% (BldA) [Mass fraction] 97 % Jonnathan Mckeon DO Work Phone: [facility] 02-25-2025 14:55-0400 Body temperature 98.4 [degF] Martha Praisler-Wood SUPPLY CHAIN PROGRAM MANAGER.HOG FEEDER Work Phone: [facility] 02-25-2025 14:55-0400 Diastolic blood pressure 74 mm[Hg] Martha Praisler-Wood SUPPLY CHAIN PROGRAM MANAGER.HOG FEEDER Work Phone: [facility] 02-25-2025 14:55-0400 Heart rate 81 /min Martha Praisler-Wood SUPPLY CHAIN PROGRAM MANAGER.HOG FEEDER Work Phone: [facility] 02-25-2025 14:55-0400 Respiratory rate 18 /min Martha Praisler-Wood SUPPLY CHAIN PROGRAM MANAGER.HOG FEEDER Work Phone: [facility] 02-25-2025 14:55-0400 SaO2% (BldA) [Mass fraction] 97 % Martha Praisler-Wood SUPPLY CHAIN PROGRAM MANAGER.HOG FEEDER Work Phone: [facility] 02-25-2025 14:55-0400 Systolic blood pressure 119 mm[Hg] Martha Praisler-Wood SUPPLY CHAIN PROGRAM MANAGER.HOG FEEDER Work Phone: [facility] 02-04-2025 15:36-0400 Body height 167.[address] Willam Estrada MD Work Phone: [facility] 02-04-2025 15:36-0400 Body mass index (BMI) [Ratio] 30.4 kg/m2 Dr. Willam Estrada MD Work Phone: [facility] 02-04-2025 15:36-0400 Body weight 85.[address] Willam Estrada MD Work Phone: [facility] 01-12-2025 13:31-0400 Body mass index (BMI) [Ratio] 31.35 kg/m2 Rufus Clutter PA-C Work Phone: [facility] 01-12-2025 13:31-0400 Body temperature 97.59 [degF] Rufus Clutter PA-C Work Phone: [facility] 01-12-2025 13:31-0400 Body weight 88.1 kg Rufus Clutter PA-C Work Phone: [facility] 01-12-2025 13:31-0400 Diastolic blood pressure 88 mm[Hg] Rufus Clutter PA-C Work Phone: [facility] 01-12-2025 13:31-0400 Heart rate 73 /min Rufus Clutter PA-C Work Phone: [facility] 01-12-2025 13:31-0400 Respiratory rate 18 /min Rufus Clutter PA-C Work Phone: [facility] 01-12-2025 13:31-0400 SaO2% (BldA) [Mass fraction] 98 % Rufus Clutter PA-C Work Phone: [facility] 01-12-2025 13:31-0400 Systolic blood pressure 160 mm[Hg] Rufus Clutter PA-C Work Phone: [facility] 11-25-2024 13:03-0400 Body mass index (BMI) [Ratio] 30.83 kg/m2 Leila Janeen PA-C Work Phone: [facility] 11-25-2024 13:03-0400 Body weight 86.64 kg Leila Gillilandone PA-C Work Phone: [facility] 11-25-2024 13:03-0400 Diastolic blood pressure 86 mm[Hg] Leila Janeen PA-C Work Phone: [facility] 11-25-2024 13:03-0400 Heart rate 83 /min Leila Janeen PA-C Work Phone: [facility] 11-25-2024 13:03-0400 Respiratory rate 14 /min Leila Janeen PA-C Work Phone: [facility] 11-25-2024 13:03-0400 SaO2% (BldA) [Mass fraction] 97 % Leila Janeen PA-C Work Phone: [facility] 11-25-2024 13:03-0400 Systolic blood pressure 124 mm[Hg] Leila Janeen PA-C Work Phone: [facility] 11-24-2024 13:41-0400 Body mass index (BMI) [Ratio] 31.22 kg/m2 Indigo Queener PA-C Work Phone: [facility] 11-24-2024 13:41-0400 Body weight 87.73 kg Indigohubert Bustamanteer PA-C Work Phone: [facility] 11-24-2024 13:41-0400 Diastolic blood pressure 70 mm[Hg] Indigo Queener PA-C Work Phone: [facility] 11-24-2024 13:41-0400 Heart rate 82 /min Indigo er PA-C Work Phone: [facility] 11-24-2024 13:41-0400 SaO2% (BldA) [Mass fraction] 96 % Indigo Queener PA-C Work Phone: [facility] 11-24-2024 13:41-0400 Systolic blood pressure 109 mm[Hg] Indigo Queener PA-C Work Phone: [facility] 11-18-2024 15:52-0400 Body height 167.6 cm Willam Estrada MD Work Phone: [facility] 11-18-2024 15:52-0400 Body mass index (BMI) [Ratio] 31.21 kg/m2 Willam Estrada MD Work Phone: [facility] 11-18-2024 15:52-0400 Body temperature 97.59 [degF] Willam Estrada MD Work Phone: [facility] 11-18-2024 15:52-0400 Body weight 87.7 kg Willam Estrada MD Work Phone: [facility] 11-18-2024 15:52-0400 Diastolic blood pressure 70 mm[Hg] Willam Estrada MD Work Phone: [facility] 11-18-2024 15:52-0400 Heart rate 75 /min Willam Estrada MD Work Phone: [facility] 11-18-2024 15:52-0400 Respiratory rate 16 /min Willam Estrada MD Work Phone: [facility] 11-18-2024 15:52-0400 SaO2% (BldA) [Mass fraction] 98 % Willam Estrada MD Work Phone: [facility] 11-18-2024 15:52-0400 Systolic blood pressure 120 mm[Hg] Willam Estrada MD Work Phone: [facility] 11-16-2024 15:36-0400 Body height 167.[address] Willam Estrada MD Work Phone: [facility] 10-30-2024 16:05-0500 Body mass index (BMI) [Ratio] 31.1 kg/m2 Dr. Willam Estrada MD Work Phone: [facility] 10-30-2024 16:05-0500 Body weight 87.[address] Willam Estrada MD Work Phone: [facility] 10-30-2024 16:05-0500 Diastolic blood pressure 75 mm[Hg] Dr. Willam Estrada MD Work Phone: [facility] 10-30-2024 16:05-0500 Heart rate 88 /min Dr. Willam Estrada MD Work Phone: 6(810)939-176061 [place] [address] 10-30-2024 16:05-0500 Respiratory rate 18 /min Dr. Willam Estrada MD Work Phone: 1(052)854-115161 [place] [address] 10-30-2024 16:05-0500 SaO2% (BldA) [Mass fraction] 94 % Dr. Willam Estrada MD Work Phone: 0(635)230-926361 [place] [address] 10-30-2024 16:05-0500 Systolic blood pressure 116 mm[Hg] Dr. Willam Estrada MD Work Phone: 6(189)686-989661 [place] [address] 10-16-2024 14:55-0500 Diastolic blood pressure 82 mm[Hg] Dr. Willam Estrada MD Work Phone: 0(984)707-792261 [place] [address] 10-16-2024 14:55-0500 Heart rate 83 /min Dr. Willam Estrada MD Work Phone: 0(815)106-649561 [place] [address] 10-16-2024 14:55-0500 Respiratory rate 18 /min Dr. Willam Estrada MD Work Phone: 3(751)743-195961 [place] [address] 10-16-2024 14:55-0500 SaO2% (BldA) [Mass fraction] 91 % Dr. Willam Estrada MD Work Phone: 6(692)984-728761 [place] [address] 10-16-2024 14:55-0500 Systolic blood pressure 126 mm[Hg] Dr. Willam Estrada MD Work Phone: 3(391)294-708961 [place] [address] 08-12-2024 16:10-0500 Body mass index (BMI) [Ratio] 31.1 kg/m2 Deanna Pagan SUPPLY CHAIN PROGRAM MANAGER.HOG FEEDER Work Phone: 5(225)218-112572 [place] [address] 08-12-2024 16:10-0500 Body temperature 96.4 [degF] Deanna Pagan SUPPLY CHAIN PROGRAM MANAGER.HOG FEEDER Work Phone: 9(494)238-733072 [place] [address] 08-12-2024 16:10-0500 Body weight 87.4 kg Deanna Latasha SUPPLY CHAIN PROGRAM MANAGER.HOG FEEDER Work Phone: [facility] 08-12-2024 16:10-0500 Diastolic blood pressure 81 mm[Hg] Deanna Latasha SUPPLY CHAIN PROGRAM MANAGER.HOG FEEDER Work Phone: [facility] 08-12-2024 16:10-0500 Heart rate 89 /min Deanna Latasha SUPPLY CHAIN PROGRAM MANAGER.HOG FEEDER Work Phone: [facility] 08-12-2024 16:10-0500 Respiratory rate 24 /min Deanna Latasha SUPPLY CHAIN PROGRAM MANAGER.HOG FEEDER Work Phone: [facility] 08-12-2024 16:10-0500 SaO2% (BldA) [Mass fraction] 98 % Deanna Latasha SUPPLY CHAIN PROGRAM MANAGER.HOG FEEDER Work Phone: [facility] 08-12-2024 16:10-0500 Systolic blood pressure 142 mm[Hg] Deanna Latasha SUPPLY CHAIN PROGRAM MANAGER.HOG FEEDER Work Phone: [facility] 08-11-2024 14:44-0500 Diastolic blood pressure 74 mm[Hg] Mona Corrigan MD Work Phone: [facility] 08-11-2024 14:44-0500 Heart rate 88 /min Mona Corrigan MD Work Phone: [facility] 08-11-2024 14:44-0500 Respiratory rate 20 /min Mona Corrigan MD Work Phone: [facility] 08-11-2024 14:44-0500 SaO2% (BldA) [Mass fraction] 98 % Mona Corrigan MD Work Phone: [facility] 08-11-2024 14:44-0500 Systolic blood pressure 136 mm[Hg] Mona Corrigan MD Work Phone: [facility] 08-09-2024 19:11-0500 Body temperature 97 [degF] Dr. Willam Estrada MD Work Phone: [facility] 08-09-2024 19:11-0500 Diastolic blood pressure 90 mm[Hg] Dr. Willam Estrada MD Work Phone: 2(813)559-540861 [place] [address] 08-09-2024 19:11-0500 Heart rate 78 /min Dr. Willam Estrada MD Work Phone: 5(672)629-469261 [place] [address] 08-09-2024 19:11-0500 Respiratory rate 20 /min Dr. Willam Estrada MD Work Phone: 3(142)978-246961 [place] [address] 08-09-2024 19:11-0500 SaO2% (BldA) [Mass fraction] 98 % Dr. Willam Estrada MD Work Phone: 6(061)801-831561 [place] [address] 08-09-2024 19:11-0500 Systolic blood pressure 146 mm[Hg] Dr. Willam Estrada MD Work Phone: 6(236)339-879861 [place] [address] 08-09-2024 15:31-0500 Body mass index (BMI) [Ratio] 31.6 kg/m2 Dr. Willam Estrada MD Work Phone: 9(930)240-885961 [place] [address] 08-09-2024 15:31-0500 Body weight 88.[address] Willam Estrada MD Work Phone: 8(985)370-547061 [place] [address] 08-06-2024 00:00-0500 Body temperature 99.2 [degF] Dr. Willam Estrada MD Work Phone: 8(515)038-644261 [place] [address] 08-06-2024 00:00-0500 Diastolic blood pressure 90 mm[Hg] Dr. Willam Estrada MD Work Phone: 3(549)774-747961 [place] [address] 08-06-2024 00:00-0500 Heart rate 82 /min Dr. Willam Estrada MD Work Phone: 4(427)097-577561 [place] [address] 08-06-2024 00:00-0500 Systolic blood pressure 163 mm[Hg] Dr. Willam Estrada MD Work Phone: 4(084)104-453261 [place] [address] 08-05-2024 20:10-0500 Body mass index (BMI) [Ratio] 34.3 kg/m2 Dr. Willam Estrada MD Work Phone: 5(595)731-915061 [place] [address] 08-05-2024 20:10-0500 Body weight 90.[address] Willam Estrada MD Work Phone: 9(551)912-011161 [place] [address] 08-05-2024 10:41-0500 Body temperature 96.4 [degF] Dr. Willam Estrada MD Work Phone: 7(363)972-108061 [place] [address] 08-05-2024 10:41-0500 Diastolic blood pressure 87 mm[Hg] Dr. Willam Estrada MD Work Phone: 6(774)486-150361 [place] [address] 08-05-2024 10:41-0500 Heart rate 84 /min Dr. Willam Estrada MD Work Phone: 5(330)815-545061 [place] [address] 08-05-2024 10:41-0500 Respiratory rate 18 /min Dr. Willam Estrada MD Work Phone: 4(842)475-576061 [place] [address] 08-05-2024 10:41-0500 SaO2% (BldA) [Mass fraction] 95 % Dr. Willam Estrada MD Work Phone: 0(176)982-778787 [place] [address] 08-05-2024 10:41-0500 Systolic blood pressure 137 mm[Hg] Dr. Willam Estrada MD Work Phone: 1(606)982-798987 [place] [address] 08-05-2024 03:05-0500 Body mass index (BMI) [Ratio] 32.8 kg/m2 Dr. Willam Estrada MD Work Phone: 6(910)276-197387 [place] [address] 08-05-2024 03:05-0500 Body weight 92.[address] Willam Estraad MD Work Phone: 3(657)766-027087 [place] [address] 08-02-2024 17:31-0500 Inhaled oxygen flow rate 2 L/min Dr. Willam Estrada MD Work Phone: 2(912)067-272687 [place] [address] 08-01-2024 13:56-0500 Body mass index (BMI) [Ratio] 31.31 kg/m2 Felipe Jolly APRN.CNP Work Phone: [facility] 08-01-2024 13:56-0500 Body temperature 97.9 [degF] Felipe Pendlebury SUPPLY CHAIN PROGRAM MANAGER.HOG FEEDER Work Phone: [facility] 08-01-2024 13:56-0500 Body weight 88 kg Felipe Pendlebury SUPPLY CHAIN PROGRAM MANAGER.HOG FEEDER Work Phone: [facility] 08-01-2024 13:56-0500 Diastolic blood pressure 68 mm[Hg] Felipe Pendlebury SUPPLY CHAIN PROGRAM MANAGER.HOG FEEDER Work Phone: [facility] 08-01-2024 13:56-0500 Heart rate 102 /min Felipe Pendlebury SUPPLY CHAIN PROGRAM MANAGER.HOG FEEDER Work Phone: [facility] 08-01-2024 13:56-0500 Respiratory rate 18 /min [facility] SUPPLY CHAIN PROGRAM MANAGER.HOG FEEDER Work Phone: [facility] 08-01-2024 13:56-0500 SaO2% (BldA) [Mass fraction] 97 % [facility] SUPPLY CHAIN PROGRAM MANAGER.HOG FEEDER Work Phone: [facility] 08-01-2024 13:56-0500 Systolic blood pressure 122 mm[Hg] Felipe Pendlebury SUPPLY CHAIN PROGRAM MANAGER.HOG FEEDER Work Phone: [facility] 07-29-2024 16:38-0500 Body mass index (BMI) [Ratio] 30.96 kg/m2 Willam Estrada MD Work Phone: [facility] 07-29-2024 16:38-0500 Body weight 87 kg Willam Estrada MD Work Phone: [facility] 07-29-2024 16:38-0500 Diastolic blood pressure 74 mm[Hg] Willam Estrada MD Work Phone: [facility] 07-29-2024 16:38-0500 Heart rate 97 /min Willam Estrada MD Work Phone: [facility] 07-29-2024 16:38-0500 Respiratory rate 16 /min Willam Estrdaa MD Work Phone: [facility] 07-29-2024 16:38-0500 Systolic blood pressure 108 mm[Hg] Willam Estrada MD Work Phone: [facility] 07-29-2024 13:38-0500 Body mass index (BMI) [Ratio] 30.83 kg/m2 Indigo Nichols PA-C Work Phone: [facility] 07-29-2024 13:38-0500 Body weight 86.64 kg Indigo Bustamanteer PA-C Work Phone: [facility] 07-29-2024 13:38-0500 Diastolic blood pressure 74 mm[Hg] Indigo Nichols PA-C Work Phone: [facility] 07-29-2024 13:38-0500 Heart rate 92 /min Indigo Nichols PA-C Work Phone: [facility] 07-29-2024 13:38-0500 SaO2% (BldA) [Mass fraction] 97 % Indigohubert Bustamantejabari PA-C Work Phone: [facility] 07-29-2024 13:38-0500 Systolic blood pressure 109 mm[Hg] Indigo Nichols PA-C Work Phone: [facility] 05-19-2024 19:00-0400 Diastolic blood pressure 70 mm[Hg] Willam Estrada MD Work Phone: [facility] Comment on above: using machine 05-19-2024 19:00-0400 Systolic blood pressure 110 mm[Hg] Willam Estrada MD Work Phone: [facility] Comment on above: using machine 05-19-2024 18:54-0400 Body mass index (BMI) [Ratio] 31.46 kg/m2 Willam Estrada MD Work Phone: [facility] 05-19-2024 18:54-0400 Body temperature 98.6 [degF] Willam Estrada MD Work Phone: [facility] 05-19-2024 18:54-0400 Body weight 88.4 kg Willam Estrada MD Work Phone: [facility] 05-19-2024 18:54-0400 Heart rate 82 /min Willam Estrada MD Work Phone: [facility] 05-19-2024 18:54-0400 Respiratory rate 16 /min Willam Estrada MD Work Phone: [facility] 05-19-2024 18:54-0400 SaO2% (BldA) [Mass fraction] 97 % Willam Estrada MD Work Phone: [facility] 05-07-2024 14:42-0400 Diastolic blood pressure 78 mm[Hg] Mona Corrigan MD Work Phone: [facility] 05-07-2024 14:42-0400 Heart rate 89 /min Mona Corrigan MD Work Phone: [facility] 05-07-2024 14:42-0400 Respiratory rate 14 /min Mona Corrigan MD Work Phone: [facility] 05-07-2024 14:42-0400 SaO2% (BldA) [Mass fraction] 96 % Mona Corrigan MD Work Phone: [facility] 05-07-2024 14:42-0400 Systolic blood pressure 118 mm[Hg] Mona Corrigan MD Work Phone: [facility] 04-20-2024 12:25-0400 Diastolic blood pressure 70 mm[Hg] Willam Estrada MD Work Phone: [facility] 04-20-2024 12:25-0400 Systolic blood pressure 100 mm[Hg] Willam Estrada MD Work Phone: [facility] 04-20-2024 11:15-0400 Body mass index (BMI) [Ratio] 31.49 kg/m2 Willam Estrada MD Work Phone: [facility] 04-20-2024 11:15-0400 Body temperature 97.59 [degF] Willam Estrada MD Work Phone: [facility] 04-20-2024 11:15-0400 Body weight 88.5 kg Willam Estrada MD Work Phone: [facility] 04-20-2024 11:15-0400 Heart rate 91 /min Willam Estrada MD Work Phone: [facility] 04-20-2024 11:15-0400 Respiratory rate 18 /min Willam Estrada MD Work Phone: [facility] 04-20-2024 11:15-0400 SaO2% (BldA) [Mass fraction] 98 % Willam Estrada MD Work Phone: [facility] 03-30-2024 14:49-0400 Diastolic blood pressure 60 mm[Hg] Willam Estrada MD Work Phone: [facility] 03-30-2024 14:49-0400 Systolic blood pressure 92 mm[Hg] Willam Estrada MD Work Phone: [facility] 03-30-2024 14:42-0400 Body mass index (BMI) [Ratio] 31.04 kg/m2 Willam Estrada MD Work Phone: [facility] 03-30-2024 14:42-0400 Body temperature 97.39 [degF] Willam Estrada MD Work Phone: [facility] 03-30-2024 14:42-0400 Body weight 87.23 kg Willam Estrada MD Work Phone: [facility] 03-30-2024 14:42-0400 Heart rate 86 /min Willam Estrada MD Work Phone: [facility] 03-30-2024 14:42-0400 Respiratory rate 18 /min Willam Estrada MD Work Phone: [facility] 03-30-2024 14:42-0400 SaO2% (BldA) [Mass fraction] 98 % Willam Estrada MD Work Phone: [facility] 03-20-2024 15:54-0400 Body mass index (BMI) [Ratio] 30.96 kg/m2 Deena Ivey APRN.CNP Work Phone: [facility] 03-20-2024 15:54-0400 Body temperature 98.29 [degF] Deena Ivey SUPPLY CHAIN PROGRAM MANAGER.HOG FEEDER Work Phone: [facility] 03-20-2024 15:54-0400 Body weight 87 kg Deena Ivey SUPPLY CHAIN PROGRAM MANAGER.HOG FEEDER Work Phone: [facility] 03-20-2024 15:54-0400 Diastolic blood pressure 80 mm[Hg] Deena Ivey SUPPLY CHAIN PROGRAM MANAGER.HOG FEEDER Work Phone: [facility] 03-20-2024 15:54-0400 Heart rate 108 /min Deena Ivey SUPPLY CHAIN PROGRAM MANAGER.HOG FEEDER Work Phone: [facility] 03-20-2024 15:54-0400 Respiratory rate 18 /min Deena Ivey SUPPLY CHAIN PROGRAM MANAGER.HOG FEEDER Work Phone: [facility] 03-20-2024 15:54-0400 SaO2% (BldA) [Mass fraction] 97 % Deena Ivey SUPPLY CHAIN PROGRAM MANAGER.HOG FEEDER Work Phone: [facility] 03-20-2024 15:54-0400 Systolic blood pressure 138 mm[Hg] Deena Ivey SUPPLY CHAIN PROGRAM MANAGER.HOG FEEDER Work Phone: [facility] 03-04-2024 14:31-0400 Body mass index (BMI) [Ratio] 31.24 kg/m2 Felipe Jolly SUPPLY CHAIN PROGRAM MANAGER.HOG FEEDER Work Phone: [facility] 03-04-2024 14:31-0400 Body temperature 97.9 [degF] Felipe Jolly SUPPLY CHAIN PROGRAM MANAGER.HOG FEEDER Work Phone: [facility] 03-04-2024 14:31-0400 Body weight 87.8 kg Felipe Jolly SUPPLY CHAIN PROGRAM MANAGER.HOG FEEDER Work Phone: [facility] 03-04-2024 14:31-0400 Diastolic blood pressure 82 mm[Hg] Felipe Jolly SUPPLY CHAIN PROGRAM MANAGER.HOG FEEDER Work Phone: [facility] 03-04-2024 14:31-0400 Heart rate 103 /min Felipe Jolly SUPPLY CHAIN PROGRAM MANAGER.HOG FEEDER Work Phone: [facility] 03-04-2024 14:31-0400 Respiratory rate 18 /min Felipe Menjivarbrittany SUPPLY CHAIN PROGRAM MANAGER.HOG FEEDER Work Phone: [facility] 03-04-2024 14:31-0400 SaO2% (BldA) [Mass fraction] 97 % Felipe Jolly SUPPLY CHAIN PROGRAM MANAGER.HOG FEEDER Work Phone: [facility] 03-04-2024 14:31-0400 Systolic blood pressure 138 mm[Hg] Felipetania Menjivarbrittany SUPPLY CHAIN PROGRAM MANAGER.HOG FEEDER Work Phone: [facility] 02-18-2024 15:08-0400 Body mass index (BMI) [Ratio] 31.8 kg/m2 Allegra Jamaica SUPPLY CHAIN PROGRAM MANAGER.HOG FEEDER Work Phone: [facility] 02-18-2024 15:08-0400 Body weight 89.36 kg Allegra Jamaica SUPPLY CHAIN PROGRAM MANAGER.HOG FEEDER Work Phone: [facility] 02-18-2024 15:08-0400 Diastolic blood pressure 74 mm[Hg] Allegra Jamaica SUPPLY CHAIN PROGRAM MANAGER.HOG FEEDER Work Phone: [facility] 02-18-2024 15:08-0400 Heart rate 75 /min Allegra Jamaica SUPPLY CHAIN PROGRAM MANAGER.HOG FEEDER Work Phone: [facility] 02-18-2024 15:08-0400 SaO2% (BldA) [Mass fraction] 98 % Allegra Jamaica SUPPLY CHAIN PROGRAM MANAGER.HOG FEEDER Work Phone: [facility] 02-18-2024 15:08-0400 Systolic blood pressure 140 mm[Hg] Allegra Jamaica SUPPLY CHAIN PROGRAM MANAGER.HOG FEEDER Work Phone: [facility] 11-28-2023 10:35-0400 Body temperature 97.9 [degF] Dr. Willam Estrada Work Phone: [facility] 11-28-2023 10:35-0400 Diastolic blood pressure 57 mm[Hg] Dr. Willam Estrada Work Phone: [facility] 11-28-2023 10:35-0400 Heart rate 77 /min Dr. Willam Estrada Work Phone: [facility] 11-28-2023 10:35-0400 Respiratory rate 16 /min Dr. Willam Estrada Work Phone: [facility] 11-28-2023 10:35-0400 SaO2% (BldA) [Mass fraction] 95 % Dr. Willam Estrada Work Phone: [facility] 11-28-2023 10:35-0400 Systolic blood pressure 86 mm[Hg] Dr. Willam Estrada Work Phone: [facility] 11-28-2023 08:31-0400 Body height 167.[address] Willam Estrada Work Phone: [facility] 11-28-2023 08:31-0400 Body mass index (BMI) [Ratio] 31.4 kg/m2 Dr. Willam Estrada Work Phone: [facility] 11-28-2023 08:31-0400 Body weight 88.[address] Willam Estrada Work Phone: [facility] 11-19-2023 16:57-0400 Body height 167.6 cm Willam Estrada MD Work Phone: [facility] 11-19-2023 16:57-0400 Body temperature 97.7 [degF] Willam Estrada MD Work Phone: [facility] 11-19-2023 16:57-0400 Body weight 89.81 kg Willam Estrada MD Work Phone: [facility] 11-19-2023 16:57-0400 Diastolic blood pressure 60 mm[Hg] Willam Estrada MD Work Phone: [facility] 11-19-2023 16:57-0400 Heart rate 78 /min Willam Estrada MD Work Phone: [facility] 11-19-2023 16:57-0400 Respiratory rate 14 /min Willam Estrada MD Work Phone: [facility] 11-19-2023 16:57-0400 SaO2% (BldA) [Mass fraction] 98 % Willam Estrada MD Work Phone: [facility] 11-19-2023 16:57-0400 Systolic blood pressure 112 mm[Hg] Willam Estrada MD Work Phone: [facility] 11-11-2023 11:01-0500 Diastolic blood pressure 78 mm[Hg] Justyna [place] SUPPLY CHAIN PROGRAM MANAGER.HOG FEEDER Work Phone: [facility] 11-11-2023 11:01-0500 Heart rate 79 /min Justyna [place] SUPPLY CHAIN PROGRAM MANAGER.HOG FEEDER Work Phone: [facility] 11-11-2023 11:01-0500 Respiratory rate 16 /min Justyna [place] SUPPLY CHAIN PROGRAM MANAGER.HOG FEEDER Work Phone: [facility] 11-11-2023 11:01-0500 SaO2% (BldA) [Mass fraction] 96 % Justyna [place] SUPPLY CHAIN PROGRAM MANAGER.HOG FEEDER Work Phone: [facility] 11-11-2023 11:01-0500 Systolic blood pressure 132 mm[Hg] Justyna [place] SUPPLY CHAIN PROGRAM MANAGER.HOG FEEDER Work Phone: [facility] 11-11-2023 11:00-0500 Body weight 90.72 kg Pul Wstr Work Phone: [facility] 11-05-2023 14:43-0500 Body height 167.6 cm Mona Corrigan MD Work Phone: [facility] 11-05-2023 14:43-0500 Body temperature 97.59 [degF] Mona Corrigan MD Work Phone: [facility] 11-05-2023 14:43-0500 Body weight 90.54 kg Mona Corrigan MD Work Phone: [facility] 11-05-2023 14:43-0500 Diastolic blood pressure 88 mm[Hg] Mona Corrigan MD Work Phone: [facility] 11-05-2023 14:43-0500 Heart rate 84 /min Mona Corrigan MD Work Phone: [facility] 11-05-2023 14:43-0500 SaO2% (BldA) [Mass fraction] 97 % Mona Corrigan MD Work Phone: [facility] 11-05-2023 14:43-0500 Systolic blood pressure 134 mm[Hg] Mona Corrigan MD Work Phone: 7(135)124-095872 [place] [address] 09-20-2023 19:53-0500 Diastolic blood pressure 74 mm[Hg] Dr. Willam Estrada Work Phone: 5(345)354-763287 [place] [address] 09-20-2023 19:53-0500 Heart rate 81 /min Dr. Willam Estrada Work Phone: 8(049)699-641561 [place] [address] 09-20-2023 19:53-0500 Respiratory rate 16 /min Dr. Willam Estrada Work Phone: 7(408)793-235761 [place] [address] 09-20-2023 19:53-0500 SaO2% (BldA) [Mass fraction] 97 % Dr. Willam Estrada Work Phone: 6(815)053-246387 [place] [address] 09-20-2023 19:53-0500 Systolic blood pressure 162 mm[Hg] Dr. Willam Estrada Work Phone: 7(512)633-458087 [place] [address] 09-20-2023 17:08-0500 Body temperature 96.9 [degF] Dr. Willam Estrada Work Phone: 9(168)003-426561 [place] [address] 09-20-2023 17:05-0500 Body height 167.[address] Willam Estrada Work Phone: 7(904)592-967961 [place] [address] 09-20-2023 17:05-0500 Body mass index (BMI) [Ratio] 32.5 kg/m2 Dr. Willam Estrada Work Phone: 1(880)318-692261 [place] [address] 09-20-2023 17:05-0500 Body weight 91.[address] Willam Estrada Work Phone: [facility] 07-23-2023 15:53-0500 Diastolic blood pressure 84 mm[Hg] Willam Estrada MD Work Phone: [facility] 07-23-2023 15:53-0500 Systolic blood pressure 132 mm[Hg] Willam Estrada MD Work Phone: [facility] 07-23-2023 15:13-0500 Body temperature 98.8 [degF] Willam Estrada MD Work Phone: [facility] 07-23-2023 15:13-0500 Body weight 90.72 kg Willam Estrada MD Work Phone: [facility] 07-23-2023 15:13-0500 Heart rate 70 /min Willam Estrada MD Work Phone: [facility] 07-23-2023 15:13-0500 Respiratory rate 18 /min Willam Estrada MD Work Phone: [facility] 07-23-2023 15:13-0500 SaO2% (BldA) [Mass fraction] 98 % Willam Estrada MD Work Phone: [facility] 07-01-2023 08:45-0400 Body temperature 97.3 [degF] Dr. Willam Estrada Work Phone: [facility] 07-01-2023 08:45-0400 Diastolic blood pressure 57 mm[Hg] Dr. Willam Estrada Work Phone: [facility] 07-01-2023 08:45-0400 Heart rate 68 /min Dr. Willam Estrada Work Phone: [facility] 07-01-2023 08:45-0400 Respiratory rate 18 /min Dr. Willam Estrada Work Phone: [facility] 07-01-2023 08:45-0400 SaO2% (BldA) [Mass fraction] 96 % Dr. Willam Estrada Work Phone: 6(577)667-022761 [place] [address] 07-01-2023 08:45-0400 Systolic blood pressure 100 mm[Hg] Dr. Willam Estrada Work Phone: 9(638)538-141361 [place] [address] 07-01-2023 08:19-0400 Inhaled oxygen flow rate 4 L/min Dr. Willam Estrada Work Phone: 7(164)102-209061 [place] [address] 07-01-2023 07:29-0400 Body height 167.[address] Willam Estrada Work Phone: 6(111)015-595961 [place] [address] 07-01-2023 07:29-0400 Body mass index (BMI) [Ratio] 32 kg/m2 Dr. Willam Estrada Work Phone: 6(228)240-056061 [place] [address] 07-01-2023 07:29-0400 Body weight [address] Willam Etsrada Work Phone: 2(930)233-071761 [place] [address] 06-28-2023 00:27-0400 Diastolic blood pressure 76 mm[Hg] Dr. Willam Estrada Work Phone: 0(579)227-257361 [place] [address] 06-28-2023 00:27-0400 Heart rate 80 /min Dr. Willam Estrada Work Phone: 7(084)081-678461 [place] [address] 06-28-2023 00:27-0400 Respiratory rate 20 /min Dr. Willam Estrada Work Phone: 5(844)486-177561 [place] [address] 06-28-2023 00:27-0400 SaO2% (BldA) [Mass fraction] 93 % Dr. Willam Estrada Work Phone: 9(039)326-603161 [place] [address] 06-28-2023 00:27-0400 Systolic blood pressure 142 mm[Hg] Dr. Willam Estrada Work Phone: 8(948)590-954661 [place] [address] 06-27-2023 23:19-0400 Body temperature 97.5 [degF] Dr. Willam Estrada Work Phone: 9(402)868-399961 [place] [address] 06-27-2023 22:14-0400 Body height 167.[address] Willam Estrada Work Phone: [facility] 06-27-2023 22:14-0400 Body mass index (BMI) [Ratio] 32.7 kg/m2 Dr. Willam Estrada Work Phone: [facility] 06-27-2023 22:14-0400 Body weight 91.[address] Willam Estrada Work Phone: [facility] 05-31-2023 14:03-0400 Body weight 90.27 kg Allegra Jamaica SUPPLY CHAIN PROGRAM MANAGER.HOG FEEDER Work Phone: [facility] 05-31-2023 14:03-0400 Diastolic blood pressure 60 mm[Hg] Allegra [place] SUPPLY CHAIN PROGRAM MANAGER.HOG FEEDER Work Phone: [facility] 05-31-2023 14:03-0400 Heart rate 64 /min Allegra Jamaica SUPPLY CHAIN PROGRAM MANAGER.HOG FEEDER Work Phone: [facility] 05-31-2023 14:03-0400 SaO2% (BldA) [Mass fraction] 97 % Allegra Jamaica SUPPLY CHAIN PROGRAM MANAGER.HOG FEEDER Work Phone: [facility] 05-31-2023 14:03-0400 Systolic blood pressure 100 mm[Hg] Allegra Jamaica SUPPLY CHAIN PROGRAM MANAGER.HOG FEEDER Work Phone: [facility] 05-30-2023 14:18-0400 Body height 167.[address] Willam Estrada Work Phone: [facility] 05-30-2023 14:18-0400 Body mass index (BMI) [Ratio] 32.1 kg/m2 Dr. Willam Estrada Work Phone: [facility] 05-30-2023 14:18-0400 Body temperature 98 [degF] Dr. Willam Estrada Work Phone: [facility] 05-30-2023 14:18-0400 Body weight 90.[address] Willam Estrada Work Phone: [facility] 05-30-2023 14:18-0400 Diastolic blood pressure 86 mm[Hg] Dr. Willam Estrada Work Phone: [facility] 05-30-2023 14:18-0400 Heart rate 76 /min Dr. Willam Estrada Work Phone: [facility] 05-30-2023 14:18-0400 Respiratory rate 14 /min Dr. Willam Estrada Work Phone: [facility] 05-30-2023 14:18-0400 SaO2% (BldA) [Mass fraction] 98 % Dr. Willam Estrada Work Phone: [facility] 05-30-2023 14:18-0400 Systolic blood pressure 137 mm[Hg] Dr. Willam Estrada Work Phone: [facility] 05-28-2023 18:20-0400 Body temperature 97.7 [degF] Deena Ivey SUPPLY CHAIN PROGRAM MANAGER.HOG FEEDER Work Phone: [facility] 05-28-2023 18:20-0400 Body weight 90.54 kg Deena Ivey SUPPLY CHAIN PROGRAM MANAGER.HOG FEEDER Work Phone: [facility] 05-28-2023 18:20-0400 Diastolic blood pressure 88 mm[Hg] Deena Ivey SUPPLY CHAIN PROGRAM MANAGER.HOG FEEDER Work Phone: [facility] 05-28-2023 18:20-0400 Heart rate 64 /min Deena Ivey SUPPLY CHAIN PROGRAM MANAGER.HOG FEEDER Work Phone: [facility] 05-28-2023 18:20-0400 Respiratory rate 16 /min Deena Ivey SUPPLY CHAIN PROGRAM MANAGER.HOG FEEDER Work Phone: [facility] 05-28-2023 18:20-0400 SaO2% (BldA) [Mass fraction] 98 % Deena Ivey SUPPLY CHAIN PROGRAM MANAGER.HOG FEEDER Work Phone: [facility] 05-28-2023 18:20-0400 Systolic blood pressure 144 mm[Hg] Deena Ivey SUPPLY CHAIN PROGRAM MANAGER.HOG FEEDER Work Phone: [facility] 05-26-2023 23:37-0400 Diastolic blood pressure 71 mm[Hg] Dr. Willam Estrada Work Phone: [facility] 05-26-2023 23:37-0400 Heart rate 80 /min Dr. Willam Estrada Work Phone: [facility] 05-26-2023 23:37-0400 Respiratory rate 89 /min Dr. Willam Estrada Work Phone: 0(384)[phone] [place] [address] 05-26-2023 23:37-0400 SaO2% (BldA) [Mass fraction] 94 % Dr. Willam Estrada Work Phone: 5(737)[phone] [place] [address] 05-26-2023 23:37-0400 Systolic blood pressure 167 mm[Hg] Dr. Willam Estrada Work Phone: 0(780)[phone] [place] [address] 05-26-2023 21:43-0400 Body temperature 99 [degF] Dr. Willam Estrada Work Phone: 8(885)[phone] [place] [address] 05-26-2023 21:39-0400 Body height 167.[address] Willam Estrada Work Phone: 3(108)[phone] [place] [address] 05-26-2023 21:39-0400 Body mass index (BMI) [Ratio] 32.8 kg/m2 Dr. Willam Estrada Work Phone: 8(134)[phone] [place] [address] 05-26-2023 21:39-0400 Body weight 92.[address] Willam Estrada Work Phone: [facility] 04-24-2023 13:34-0400 Body height 167.6 cm Leila Rbui PA-C Work Phone: [facility] 04-24-2023 13:34-0400 Body weight 91.17 kg Leila Janeen PA-C Work Phone: [facility] 04-24-2023 13:34-0400 Diastolic blood pressure 80 mm[Hg] Leila Gillilandone PA-C Work Phone: [facility] 04-24-2023 13:34-0400 Heart rate 76 /min Leila Janeen PA-C Work Phone: [facility] 04-24-2023 13:34-0400 Respiratory rate 14 /min Leila Janeen PA-C Work Phone: [facility] 04-24-2023 13:34-0400 SaO2% (BldA) [Mass fraction] 96 % Leila Janeen PA-C Work Phone: [facility] 04-24-2023 13:34-0400 Systolic blood pressure 118 mm[Hg] Leila Gillilandone PA-C Work Phone: [facility] 04-24-2023 13:08-0400 Body height 164.6 cm Pulm Wstr Work Phone: [facility] 04-24-2023 13:08-0400 Body weight 91.17 kg Pulm Wstr Work Phone: [facility] 04-24-2023 13:08-0400 Heart rate 75 /min Pulm Wstr Work Phone: [facility] 04-24-2023 13:08-0400 Respiratory rate 14 /min Pulm Wstr Work Phone: [facility] 04-24-2023 13:08-0400 SaO2% (BldA) [Mass fraction] 97 % Pulm Wstr Work Phone: [facility] 01-04-2023 15:29-0400 Body height 167.[address] Willam Estrada Work Phone: [facility] 01-04-2023 15:29-0400 Body mass index (BMI) [Ratio] 33.2 kg/m2 Dr. Willam Estrada Work Phone: [facility] 01-04-2023 15:29-0400 Body weight 93.[address] Willam Estrada Work Phone: [facility] 01-04-2023 15:29-0400 Diastolic blood pressure 96 mm[Hg] Dr. Willam Estrada Work Phone: [facility] 01-04-2023 15:29-0400 Heart rate 71 /min Dr. Willam Estrada Work Phone: [facility] 01-04-2023 15:29-0400 SaO2% (BldA) [Mass fraction] 97 % Dr. Willam Estrada Work Phone: [facility] 01-04-2023 15:29-0400 Systolic blood pressure 157 mm[Hg] Dr. Willam Estrada Work Phone: [facility] 12-29-2022 23:11-0400 Diastolic blood pressure 89 mm[Hg] [facility] 12-29-2022 23:11-0400 Heart rate 93 /min [facility] 12-29-2022 23:11-0400 Respiratory rate 24 /min [facility] 12-29-2022 23:11-0400 SaO2% (BldA) [Mass fraction] 93 % [facility] 12-29-2022 23:11-0400 Systolic blood pressure 141 mm[Hg] [facility] 12-29-2022 21:39-0400 Body temperature 97.1 [degF] [facility] 12-29-2022 20:00-0400 Body height 167.64 cm [facility] 12-29-2022 20:00-0400 Body mass index (BMI) [Ratio] 33.7 kg/m2 [facility] 12-29-2022 20:00-0400 Body weight 94.7 kg [facility] 12-21-2022 13:36-0400 Body weight 92.53 kg Leila Gillilandone PA-C Work Phone: [facility] 12-21-2022 13:36-0400 Diastolic blood pressure 70 mm[Hg] Leila Gillilandone PA-C Work Phone: [facility] 12-21-2022 13:36-0400 Heart rate 86 /min Leila Gillilandone PA-C Work Phone: [facility] 12-21-2022 13:36-0400 Respiratory rate 18 /min Leila Rubi PA-C Work Phone: [facility] 12-21-2022 13:36-0400 SaO2% (BldA) [Mass fraction] 94 % Leila Rubi PA-C Work Phone: [facility] 12-21-2022 13:36-0400 Systolic blood pressure 108 mm[Hg] Leila Rubi PA-C Work Phone: [facility] 12-18-2022 19:15-0400 Body temperature 97.3 [degF] Willam Estrada MD Work Phone: [facility] 12-18-2022 19:15-0400 Body weight 91.17 kg Willam Estrada MD Work Phone: [facility] 12-18-2022 19:15-0400 Diastolic blood pressure 64 mm[Hg] Willam Estrada MD Work Phone: [facility] 12-18-2022 19:15-0400 Heart rate 81 /min Willam Estrada MD Work Phone: [facility] 12-18-2022 19:15-0400 Respiratory rate 18 /min Willam Estrada MD Work Phone: [facility] 12-18-2022 19:15-0400 SaO2% (BldA) [Mass fraction] 97 % Willam Estrada MD Work Phone: [facility] 12-18-2022 19:15-0400 Systolic blood pressure 104 mm[Hg] Willam Estrada MD Work Phone: [facility] 11-21-2022 16:06-0400 Body temperature 98.4 [degF] Deena Ivey SUPPLY CHAIN PROGRAM MANAGER.HOG FEEDER Work Phone: [facility] 11-21-2022 16:06-0400 Body weight 94.53 kg Deena Ivey SUPPLY CHAIN PROGRAM MANAGER.HOG FEEDER Work Phone: [facility] 11-21-2022 16:06-0400 Diastolic blood pressure 78 mm[Hg] Deena Ivey SUPPLY CHAIN PROGRAM MANAGER.HOG FEEDER Work Phone: [facility] 11-21-2022 16:06-0400 Heart rate 89 /min Deena Ivey SUPPLY CHAIN PROGRAM MANAGER.HOG FEEDER Work Phone: [facility] 11-21-2022 16:06-0400 Respiratory rate 18 /min Deena Viey SUPPLY CHAIN PROGRAM MANAGER.HOG FEEDER Work Phone: [facility] 11-21-2022 16:06-0400 SaO2% (BldA) [Mass fraction] 98 % Deena Ivey SUPPLY CHAIN PROGRAM MANAGER.HOG FEEDER Work Phone: [facility] 11-21-2022 16:06-0400 Systolic blood pressure 110 mm[Hg] Deena Ivey SUPPLY CHAIN PROGRAM MANAGER.HOG FEEDER Work Phone: [facility] 10-08-2022 11:01-0500 Diastolic blood pressure 75 mm[Hg] Willam Estrada MD Work Phone: [facility] 10-08-2022 11:01-0500 Systolic blood pressure 119 mm[Hg] Willam Estrada MD Work Phone: [facility] 10-08-2022 10:55-0500 Body weight 93.44 kg Willam Estrada MD Work Phone: [facility] 10-08-2022 10:55-0500 Heart rate 78 /min Willam Estrada MD Work Phone: [facility] 10-08-2022 10:55-0500 Respiratory rate 18 /min Willam Estrada MD Work Phone: [facility] 10-08-2022 10:55-0500 SaO2% (BldA) [Mass fraction] 96 % Willam Estrada MD Work Phone: [facility] 08-24-2022 19:25-0500 SaO2% (BldA) [Mass fraction] 99 % [facility] 08-24-2022 18:07-0500 Body height 167.64 cm [facility] 08-24-2022 18:07-0500 Body mass index (BMI) [Ratio] 31.3 kg/m2 [facility] 08-24-2022 18:07-0500 Body temperature 98.9 [degF] [facility] 08-24-2022 18:07-0500 Body weight 87.99 kg [facility] 08-24-2022 18:07-0500 Diastolic blood pressure 99 mm[Hg] [facility] 08-24-2022 18:07-0500 Heart rate 87 /min [facility] 08-24-2022 18:07-0500 Respiratory rate 20 /min [facility] 08-24-2022 18:07-0500 Systolic blood pressure 184 mm[Hg] [facility] 08-07-2022 14:56-0500 Body weight 92.53 kg Willam Estrada MD Work Phone: [facility] 08-07-2022 14:56-0500 Diastolic blood pressure 82 mm[Hg] Willam Estrada MD Work Phone: [facility] 08-07-2022 14:56-0500 Heart rate 77 /min Willam Estrada MD Work Phone: [facility] 08-07-2022 14:56-0500 SaO2% (BldA) [Mass fraction] 95 % Willam Estrada MD Work Phone: [facility] 08-07-2022 14:56-0500 Systolic blood pressure 118 mm[Hg] Willam Estrada MD Work Phone: [facility] 07-05-2022 13:28-0400 Diastolic blood pressure 78 mm[Hg] Diana Older SUPPLY CHAIN PROGRAM MANAGER.HOG FEEDER Work Phone: [facility] 07-05-2022 13:28-0400 Heart rate 68 /min Diana Older SUPPLY CHAIN PROGRAM MANAGER.HOG FEEDER Work Phone: [facility] 07-05-2022 13:28-0400 Respiratory rate 16 /min Diana Older SUPPLY CHAIN PROGRAM MANAGER.HOG FEEDER Work Phone: [facility] 07-05-2022 13:28-0400 Systolic blood pressure 122 mm[Hg] Diana Older SUPPLY CHAIN PROGRAM MANAGER.HOG FEEDER Work Phone: [facility] 07-02-2022 17:35-0400 Diastolic blood pressure 88 mm[Hg] [facility] 07-02-2022 17:35-0400 Heart rate 71 /min [facility] 07-02-2022 17:35-0400 Respiratory rate 16 /min [facility] 07-02-2022 17:35-0400 SaO2% (BldA) [Mass fraction] 98 % [facility] 07-02-2022 17:35-0400 Systolic blood pressure 137 mm[Hg] [facility] 07-02-2022 13:57-0400 Body mass index (BMI) [Ratio] 31.6 kg/m2 [facility] 07-02-2022 13:57-0400 Body temperature 97.6 [degF] [facility] 07-02-2022 13:57-0400 Body weight 88.9 kg [facility] 07-02-2022 11:44-0400 Body weight 93.44 kg Diana Older SUPPLY CHAIN PROGRAM MANAGER.HOG FEEDER Work Phone: [facility] 07-02-2022 11:44-0400 Diastolic blood pressure 90 mm[Hg] Diana Older SUPPLY CHAIN PROGRAM MANAGER.HOG FEEDER Work Phone: [facility] 07-02-2022 11:44-0400 Heart rate 88 /min Diana Older SUPPLY CHAIN PROGRAM MANAGER.HOG FEEDER Work Phone: [facility] 07-02-2022 11:44-0400 Respiratory rate 16 /min Diana Older SUPPLY CHAIN PROGRAM MANAGER.HOG FEEDER Work Phone: [facility] 07-02-2022 11:44-0400 SaO2% (BldA) [Mass fraction] 98 % Diana Older SUPPLY CHAIN PROGRAM MANAGER.HOG FEEDER Work Phone: [facility] 07-02-2022 11:44-0400 Systolic blood pressure 138 mm[Hg] Diana Older SUPPLY CHAIN PROGRAM MANAGER.HOG FEEDER Work Phone: [facility] 06-27-2022 16:46-0400 Body temperature 98.29 [degF] Diana Older SUPPLY CHAIN PROGRAM MANAGER.HOG FEEDER Work Phone: [facility] 06-27-2022 16:46-0400 Body weight 92.08 kg Diana Older SUPPLY CHAIN PROGRAM MANAGER.HOG FEEDER Work Phone: [facility] 06-27-2022 16:46-0400 Diastolic blood pressure 98 mm[Hg] Diana Older SUPPLY CHAIN PROGRAM MANAGER.HOG FEEDER Work Phone: [facility] 06-27-2022 16:46-0400 Heart rate 73 /min Diana Older SUPPLY CHAIN PROGRAM MANAGER.HOG FEEDER Work Phone: [facility] 06-27-2022 16:46-0400 Respiratory rate 16 /min Diana Older SUPPLY CHAIN PROGRAM MANAGER.HOG FEEDER Work Phone: [facility] 06-27-2022 16:46-0400 SaO2% (BldA) [Mass fraction] 98 % Diana Older SUPPLY CHAIN PROGRAM MANAGER.HOG FEEDER Work Phone: [facility] 06-27-2022 16:46-0400 Systolic blood pressure 142 mm[Hg] Diana Older SUPPLY CHAIN PROGRAM MANAGER.HOG FEEDER Work Phone: [facility] 06-22-2022 15:42-0400 Body temperature 97.9 [degF] Rufus Cruz PA-C Work Phone: [facility] 06-22-2022 15:42-0400 Body weight 93.08 kg Rufus Cruz PA-C Work Phone: [facility] 06-22-2022 15:42-0400 Diastolic blood pressure 98 mm[Hg] Rufus Cruz PA-C Work Phone: [facility] 06-22-2022 15:42-0400 Heart rate 81 /min Rufus Cruz PA-C Work Phone: [facility] 06-22-2022 15:42-0400 Respiratory rate 20 /min Rufus Cruz PA-C Work Phone: [facility] 06-22-2022 15:42-0400 SaO2% (BldA) [Mass fraction] 96 % Rufus Cruz PA-C Work Phone: [facility] 06-22-2022 15:42-0400 Systolic blood pressure 142 mm[Hg] Rufus Cruz PA-C Work Phone: [facility] 04-06-2022 14:33-0400 Body weight 90.72 kg Willam Estrada MD Work Phone: [facility] 04-06-2022 14:33-0400 Diastolic blood pressure 72 mm[Hg] Willam Estrada MD Work Phone: [facility] 04-06-2022 14:33-0400 Heart rate 73 /min Willam Estrada MD Work Phone: [facility] 04-06-2022 14:33-0400 SaO2% (BldA) [Mass fraction] 97 % Willam Estrada MD Work Phone: [facility] 04-06-2022 14:33-0400 Systolic blood pressure 112 mm[Hg] Willam Estrada MD Work Phone: [facility] 02-22-2022 13:35-0400 Diastolic blood pressure 73 mm[Hg] Patti Manrique MD Work Phone: [facility] 02-22-2022 13:35-0400 Heart rate 81 /min Patti Manrique MD Work Phone: [facility] 02-22-2022 13:35-0400 Respiratory rate 23 /min Patti Manrique MD Work Phone: [facility] 02-22-2022 13:35-0400 SaO2% (BldA) [Mass fraction] 94 % Patti Manrique MD Work Phone: [facility] 02-22-2022 13:35-0400 Systolic blood pressure 120 mm[Hg] Patti Manrique MD Work Phone: [facility] 02-22-2022 13:21-0400 Body temperature 97.11 [degF] Patti Manrique MD Work Phone: [facility] 02-16-2022 14:23-0400 Body height 167.[address] Willam Estrada Work Phone: [facility] Work Phone: 02-16-2022 14:23-0400 Body mass index (BMI) [Ratio] 32.3 kg/m2 Dr. Willam Estrada Work Phone: [facility] Work Phone: 02-16-2022 14:23-0400 Body weight 90.[address] Willam Estrada Work Phone: [facility] Work Phone: 02-16-2022 14:23-0400 Diastolic blood pressure 92 mm[Hg] Dr. Willam Estrada Work Phone: [facility] Work Phone: 02-16-2022 14:23-0400 Heart rate 76 /min Dr. Willam Estrada Work Phone: [facility] Work Phone: 02-16-2022 14:23-0400 Respiratory rate 18 /min Dr. Willam Estrada Work Phone: [facility] Work Phone: 02-16-2022 14:23-0400 SaO2% (BldA) [Mass fraction] 96 % Dr. Willam Estrada Work Phone: [facility] Work Phone: 02-16-2022 14:23-0400 Systolic blood pressure 135 mm[Hg] Dr. Willam Estrada Work Phone: [facility] Work Phone: 02-09-2022 14:24-0400 Body height 167.6 cm Patti Manrique MD Work Phone: [facility] 02-09-2022 14:24-0400 Body temperature 96.1 [degF] Patti Manrique MD Work Phone: [facility] 02-09-2022 14:24-0400 Body weight 90.72 kg Patti Manrique MD Work Phone: [facility] 02-09-2022 14:24-0400 Diastolic blood pressure 66 mm[Hg] Patti Manrique MD Work Phone: [facility] 02-09-2022 14:24-0400 Heart rate 86 /min Patti Manrique MD Work Phone: [facility] 02-09-2022 14:24-0400 SaO2% (BldA) [Mass fraction] 96 % Patti Manrique MD Work Phone: [facility] 02-09-2022 14:24-0400 Systolic blood pressure 108 mm[Hg] Patti Manrique MD Work Phone: [facility] 02-06-2022 14:26-0400 Body temperature 98.49 [degF] [facility] SUPPLY CHAIN PROGRAM MANAGER.HOG FEEDER Work Phone: [facility] 02-06-2022 14:26-0400 Body weight 91.17 kg [facility] SUPPLY CHAIN PROGRAM MANAGER.HOG FEEDER Work Phone: [facility] 02-06-2022 14:26-0400 Diastolic blood pressure 70 mm[Hg] Felipe Pendlebury SUPPLY CHAIN PROGRAM MANAGER.HOG FEEDER Work Phone: [facility] 02-06-2022 14:26-0400 Heart rate 78 /min Felipe Pendlebury SUPPLY CHAIN PROGRAM MANAGER.HOG FEEDER Work Phone: [facility] 02-06-2022 14:26-0400 Respiratory rate 16 /min [facility] SUPPLY CHAIN PROGRAM MANAGER.HOG FEEDER Work Phone: [facility] 02-06-2022 14:26-0400 SaO2% (BldA) [Mass fraction] 97 % [facility] SUPPLY CHAIN PROGRAM MANAGER.HOG FEEDER Work Phone: [facility] 02-06-2022 14:26-0400 Systolic blood pressure 124 mm[Hg] Felipe Pendlebury SUPPLY CHAIN PROGRAM MANAGER.HOG FEEDER Work Phone: [facility] 01-15-2022 15:33-0400 Diastolic blood pressure 82 mm[Hg] Dr. Willam Estrada Work Phone: [facility] Work Phone: 01-15-2022 15:33-0400 Systolic blood pressure 134 mm[Hg] Dr. Willam Estrada Work Phone: [facility] Work Phone: 01-15-2022 09:00-0400 Body height 167.[address] Willam Estrada Work Phone: [facility] Work Phone: 01-15-2022 09:00-0400 Body mass index (BMI) [Ratio] 33.5 kg/m2 Dr. Willam Estrada Work Phone: [facility] Work Phone: 01-15-2022 09:00-0400 Body weight 94.[address] Willam Estrada Work Phone: [facility] Work Phone: 01-15-2022 09:00-0400 Heart rate 92 /min Dr. Willam Estrada Work Phone: [facility] Work Phone: 01-15-2022 09:00-0400 SaO2% (BldA) [Mass fraction] 92 % Dr. Willam Estrada Work Phone: [facility] Work Phone: 01-09-2022 14:28-0400 Diastolic blood pressure 78 mm[Hg] Willam Estrada MD Work Phone: [facility] 01-09-2022 14:28-0400 Systolic blood pressure 122 mm[Hg] Willam Estrada MD Work Phone: [facility] 01-09-2022 13:50-0400 Body weight 93.89 kg Willam Estrada MD Work Phone: [facility] 01-09-2022 13:50-0400 Heart rate 88 /min Willam Estrada MD Work Phone: [facility] 01-04-2022 16:04-0400 Body height 167.[address] Willam Estrada Work Phone: [facility] Work Phone: 01-04-2022 16:04-0400 Body mass index (BMI) [Ratio] 33.7 kg/m2 Dr. Willam Estrada Work Phone: [facility] Work Phone: 01-04-2022 16:04-0400 Body weight 94.[address] Willam Estrada Work Phone: [facility] Work Phone: 01-04-2022 16:04-0400 Diastolic blood pressure 62 mm[Hg] Dr. Willam Estrada Work Phone: [facility] Work Phone: 01-04-2022 16:04-0400 Heart rate 80 /min Dr. Willam Estrada Work Phone: [facility] Work Phone: 01-04-2022 16:04-0400 Respiratory rate 18 /min Dr. Willam Estrada Work Phone: [facility] Work Phone: 01-04-2022 16:04-0400 Systolic blood pressure 124 mm[Hg] Dr. Willam Estrada Work Phone: [facility] Work Phone: 12-14-2021 17:08-0400 Body height 167.[address] Willam Estrada Work Phone: [facility] Work Phone: 12-14-2021 17:08-0400 Body mass index (BMI) [Ratio] 33.5 kg/m2 Dr. Willam Estrada Work Phone: [facility] Work Phone: 12-14-2021 17:08-0400 Body weight 94.[address] Willam Estrada Work Phone: [facility] Work Phone: 12-14-2021 17:07-0400 Body temperature 98.7 [degF] Dr. Willam Estrada Work Phone: [facility] Work Phone: 12-14-2021 17:07-0400 Diastolic blood pressure 85 mm[Hg] Dr. Willam Estrada Work Phone: [facility] Work Phone: 12-14-2021 17:07-0400 Heart rate 84 /min Dr. Willam Estrada Work Phone: [facility] Work Phone: 12-14-2021 17:07-0400 SaO2% (BldA) [Mass fraction] 97 % Dr. Willam Estrada Work Phone: [facility] Work Phone: 12-14-2021 17:07-0400 Systolic blood pressure 123 mm[Hg] Dr. Willam Estrada Work Phone: [facility] Work Phone: 12-04-2021 16:50-0400 Body weight 94.35 kg Willam Estrada MD Work Phone: [facility] 12-04-2021 16:50-0400 Diastolic blood pressure 86 mm[Hg] Willam Estrada MD Work Phone: [facility] 12-04-2021 16:50-0400 Heart rate 82 /min Willam Estrada MD Work Phone: [facility] 12-04-2021 16:50-0400 Systolic blood pressure 126 mm[Hg] Willam Estrada MD Work Phone: [facility] Encounters Encounter Date Encounter Type Care Provider Facility Start: 03-07-2025 End: 03-08-2025 Refill Leilani Ramirez APRN.CNS Work Phone: [facility] [place] Comment on above: Refill Request Start: 03-02-2025 [...] Start: 03-02-2025 End: 03-02-2025 ambulatory WILLAM ESTRADA Facility:[facility] Start: 02-27-2025 End: 02-27-2025 Follow-up encounter Amanda Crow APRN.CNP Work Phone: [facility] Comment on above: Results Start: 02-25-2025 End: 02-25-2025 Patient encounter procedure Martha Diop APRN.CNP Work Phone: [facility] Comment on above: Urinary frequency (P rimary Dx); Asthma, unspecified asthma severity, unspecified whether complicated, unspecified whether persistent (HCC); History of urinary tract infection Start: 02-25-2025 End: 02-25-2025 ambulatory MARTHA DIOP Facility:[facility] Start: 02-04-2025 End: 02-04-[address] Blake Avilez [facility] Work Phone: Start: 02-04-2025 End: 02-04-[address] Willam Estrada MD Work Phone: [facility] Work Phone: Start: 01-12-2025 End: 01-12-2025 Office outpatient visit 25 minutes Rufus Ohara PA-C Work Phone: [facility] Comment on above: Urinary frequency (P rimary Dx) Start: 01-12-2025 End: 01-12-2025 ambulatory RUFUS OHARA Facility:[facility] Start: 12-25-2024 End: 12-25-2024 ambulatory WILLAM ESTRADA Facility:[facility] Start: 12-24-2024 End: 12-24-2024 [facility] Work [facility]: Start: 12-24-2024 End: 12-24-2024 ambulatory Yusra Destiney Facility:[facility] Start: 12-18-2024 End: 12-18-[address] Willam Estrada MD Work Phone: [facility] Work Phone: Start: 12-18-2024 End: 12-18-2024 Patient encounter procedure Yusra [place] [facility] Work Phone: Start: 12-18-2024 End: 12-18-2024 ambulatory Yusra Cabello Facility:[facility] Start: 12-11-2024 End: 12-11-2024 ambulatory Naila Lanier RN Work Phone: [facility] Comment on above: Initial enrollment o [facility] Start: 12-09-2024 End: 12-09-2024 ambulatory Madonna Elizabeth Munafo [facility] Start: 12-09-2024 End: 12-09-2024 Patient encounter procedure Madonna Elizabeth Munafo [facility] Comment on above: Population Health Na vigation Outreach ([facility]O High Risk - attempt 2) Start: 12-04-2024 End: 12-04-2024 ambulatory Madonna Elizabeth Munafo [facility] Start: 12-04-2024 End: 12-04-2024 Patient encounter procedure Madonna Elizabeth Munafo [facility] Comment on above: Population Health Na vigation Outreach (ACO High Risk - attempt 1 ) Start: 11-29-2024 End: 11-30-2024 Refill Willam Estrada MD Work Phone: [facility] [place] Comment on above: Refill Request Start: 11-26-2024 End: 11-26-2024 Telephone encounter Willam Estrada MD Work Phone: [facility] [place] Comment on above: Forms Start: 11-25-2024 End: 11-25-2024 ambulatory WILLAM D TALAMPAS Facility:[facility] Start: 11-25-2024 End: 11-25-2024 Patient encounter procedure [...] 11-24-2024 End: 11-24-2024 ambulatory WILLAM D EMILIEAS Facility:[facility] Start: 11-23-2024 End: 11-23-2024 ambulatory WILLAM D TALAMPAS Facility:[facility] Start: 11-23-2024 End: 11-23-2024 Subsequent hospital visit by physician [facility] ([facility]) Work Phone: [facility] Comment on above: Tobacco use current [Z72.0] Start: 11-19-2024 End: 11-19-2024 Telephone encounter Willam Estrada MD Work Phone: [facility] [place] Comment on above: Insurance Authorizat ion Start: 11-18-2024 End: 11-18-2024 Office outpatient visit 25 minutes Willam Estrada MD Work Phone: [facility] [place] Comment on above: Type 2 diabetes sara itus with diabetic neuropathy, without long-term current use of insulin (HCC) (Primary Dx); Essential hypertension; Moderate persistent asthma without complication; Anxiety and depression; Neuropathy; Bilateral leg edema; Chronic obstructive pulmonary disease with (acute) exacerbation (HCC) Start: 11-18-2024 End: 11-18-2024 ambulatory WILLAM D TALAMPAS Facility:[facility] Start: 11-16-2024 End: 11-16-2024 Patient encounter procedure Yusra BROWN -[facility] Work Phone: Start: 11-16-2024 End: 11-16-2024 ambulatory Willam Estrada [facility] Start: 11-11-2024 ambulatory Aly Jeffrey [facility] Start: 11-11-2024 Non-patient / Non-visit Dr. Aly lopez MD -[facility]- Start: 11-11-2024 End: 11-11-[address] Willam Estrada MD Work Phone: [facility] Work Phone: Start: 11-11-2024 End: 11-11-2024 Patient encounter procedure INDIGO BROWN -Pulmonary Services/Neurology Work Phone: Start: 11-11-2024 End: 11-11-2024 ambulatory Willam Estrada Facility:[facility] Start: 11-02-2024 End: 11-02-[address] Blake Avilez MD -Physical Therapy Work Phone: Start: 11-02-2024 End: 11-02-2024 ambulatory Blake Avilez Facility:[facility] Start: 10-30-2024 End: 10-30-[address] León Cruz MD -[place] [facility] Work Phone: Start: 10-30-2024 End: 10-30-2024 ambulatory Willam Estrada Facility:[facility] Start: 10-16-2024 End: 10-16-2024 Patient encounter procedure Ya Singh PA -[facility] Work Phone: Start: 10-16-2024 End: 10-16-2024 ambulatory Willam Estrada Facility:[facility] Start: 10-07-2024 End: 10-07-2024 ambulatory WILLAM ESTRADA Facility:[facility] Start: 10-07-2024 End: 10-07-2024 Subsequent hospital visit by physician Screen Mammo [facility] Mammogram Comment on above: Encounter for screen ing mammogram for breast cancer [Z12.31] Start: 09-14-2024 End: 09-14-2024 Refill Deanna Pagan APRN.HOG FEEDER Work Phone: [facility] [place] Comment on above: Refill Request Start: 09-11-2024 End: 09-11-[address] Shaq Rush MD -[facility] Start: 09-11-2024 End: 09-14-2024 Refill Willam Estrada MD Work Phone: [facility] [place] Comment on above: Refill Request Start: 09-08-2024 End: 09-08-[address] Blake Avilez MD -[facility] Work Phone: Start: 09-08-2024 End: 09-08-2024 ambulatory Willam D Talampas Facility:[facility] Start: 09-03-2024 End: 09-03-2024 Patient encounter procedure Yusra Cabello [facility] Work Phone: Start: 09-03-2024 End: 09-03-2024 ambulatory Willam Kit Vargasampas Facility:[facility] Start: 08-25-2024 End: 08-25-2024 Social Work [facility] Social Work Comment on above: Needs assistance wit h community resources (Primary Dx) Start: 08-17-2024 End: 08-17-2024 Social Work [facility] Comment on above: Needs assistance wit community resources (Primary Dx) Start: 08-14-2024 End: 08-14-2024 Patient Outreach Alyssa Hathaway RN Work Phone: [facility] Comment on above: Started Weekly phone contact (Recurring) for Transitional Care Management Start: 08-12-2024 End: 08-12-2024 Patient encounter procedure Deanna Pagan APRN.HOG FEEDER Work Phone: [facility] [place] Comment on above: Essential hypertensi on (Primary [...] Cigarette smoker Start: 08-11-2024 End: 08-11-2024 ambulatory [facility] Facility:[facility] Start: 08-10-2024 End: 08-10-2024 Telephone encounter Mona Corrigan MD Work Phone: Pulmonary Medicine Comment on above: Needs assistance wit h community resources (Primary Dx) Start: 08-10-2024 [facility] Start: 08-10-2024 Non-patient / Non-visit Dr. Rosendo trejo MD -[facility] Start: 08-10-2024 End: 08-10-2024 Patient encounter procedure Kemi BROWN -Cardiovascular Services Work Phone: Start: 08-10-2024 End: 08-10-2024 ambulatory [facility] Facility:[facility] Start: 08-09-2024 End: 08-09-2024 Emergency department patient visit Dr. Julián Schrader DO -Emergency Department Work Phone: Start: 08-07-2024 End: 08-07-2024 Patient Outreach Alyssa Hathaway RN Work Phone: [facility] Comment on above: Transition Of Care ( TCM/ OON [facility] 08/05 ) Initial phone contact for Transitional Care Management Start: 08-05-2024 End: 08-06-2024 Emergency department patient visit Dr. Lissette Guerin DO -Emergency Department Work Phone: Start: 08-05-2024 End: 08-05-2024 ambulatory Yenifer Alberto RN NURSE HEALTH PLAN SPECIALIST Comment on above: Infection Start: 08-05-2024 Non-patient / Non-visit Dr. Kaylynn Dunaway MD -[facility] Work Phone: Start: 08-04-2024 Non-patient / Non-visit Dr. Kaylynn Dunaway MD -[facility] Work Phone: Start: 08-04-2024 End: 08-04-2024 Telephone encounter Willam Estrada MD Work Phone: [facility] [place] Comment on above: Orders (For bath/sudha wer chair) Start: 08-03-2024 End: 08-03-2024 Telephone encounter Mirtha BROWN Work Phone: [facility] Comment on above: Results Start: 08-03-2024 Non-patient / Non-visit Dr. Kaylynn Dunaway MD -[facility] Work Phone: Start: 08-02-2024 Non-patient / Non-visit Dr. Thalia melgar MD -[facility] Work Phone: Start: 08-02-2024 ambulatory Thalia Hernandez [facility] Start: 08-02-2024 End: 08-05-2024 Evaluation and management of inpatient Dr. Neal Dunaway MD -Progressive Care Unit Work Phone: Start: 08-01-2024 End: 08-01-2024 ambulatory WILLAM ESTRADA Facility:[facility] Start: 08-01-2024 End: 08-01-2024 Office outpatient visit [...] Willam Estrada MD Work Phone: [facility] [place] Comment on above: Type 2 diabetes sara [...] Start: 07-29-2024 End: 07-29-2024 ambulatory WILLAM ESTRADA Facility:[facility] Start: 07-29-2024 End: 07-31-2024 Telephone encounter Willam Estrada MD Work Phone: [facility] [place] Comment on above: Orders Start: 07-29-2024 End: 07-29-2024 Patient encounter procedure Indigo Nichols PA-C Work Phone: Neurology Comment on above: Neuropathy (Primary Dx); Other fatigue Start: 07-29-2024 End: 07-29-2024 ambulatory WILLAM ESTRADA Facility:[facility] Start: 07-23-2024 End: 07-23-2024 [facility] Comment on above: Needs assistance wit h community resources (Primary Dx) Start: 07-22-2024 End: 07-23-2024 [facility] Comment on [...] 07-03-2024 End: 07-03-2024 ambulatory Oxana Pack RN [facility] Comment on above: CDM (Telephonic outr each/) Start: 07-02-2024 ambulatory Rito Sanchez NP Facility :[facility] Start: 07-02-2024 End: 07-02-2024 ambulatory Rito Sanchez NP Facility:[facility] Start: 06-29-2024 End: 06-29-2024 Telephone encounter Mona Corrigan MD Work Phone: Pulmonary Medicine Start: 06-23-2024 End: 06-23-2024 ambulatory WILLAM ESTRADA Facility:[facility] Start: 06-23-2024 End: 06-23-2024 Subsequent hospital visit by physician [facility] (I-Stat) Work Phone: Cat Scan Comment on above: Lung nodules [R91.8] Start: 06-22-2024 End: 06-22-2024 ambulatory WILLAM Pantoja CHELEECHO Facility:[facility] Start: 06-10-2024 End: 06-12-2024 Refill Willam Estrada MD Work Phone: [facility] [place] Comment on above: Refill Request Start: 06-04-2024 End: 06-04-2024 ambulatory Oxana Pack RN [facility] Comment on above: CDM (Telephonic outr [...] Start: 05-19-2024 End: 05-19-2024 ambulatory WILLAM VARGASECHO Facility:[facility] Start: 05-08-2024 End: 05-09-2024 Emergency department patient visit Willammerari Estrada Facility:[facility] Start: 05-08-2024 End: 05-08-2024 ambulatory Keyana Vieira RN NURSE HEALTH PLAN SPECIALIST Comment on above: Dysuria Start: 05-07-2024 End: 05-07-2024 ambulatory WILLAM VARGASECHO Facility:[facility] Start: 05-07-2024 End: 05-07-2024 Patient encounter procedure Mona Corrigan MD Work Phone: Pulmonary Medicine Comment on above: Lung nodules (Primar y Dx); Moderate persistent asthma without complication; Cigarette smoker; Class 2 obesity Start: 04-28-2024 End: 04-28-2024 ambulatory Rola Browne RN Work Phone: [facility] Comment on above: Community Monitoring Outreach (CDM Telephonic Outreach/) Start: 04-20-2024 End: 04-20-2024 ambulatory WILLAM ESTRADA Facility:[facility] Start: 04-20-2024 End: 04-20-2024 Office outpatient visit 25 minutes Willam Estrada MD Work Phone: [facility] [place] Comment on above: Acute bronchitis wit h [...] Start: 04-19-2024 ambulatory Renu Peña RN NURSE HEALTH PLAN SPECIALIST Comment on above: Difficulty Breathing Start: 04-09-2024 ambulatory Alyssa Hathaway RN Work Phone: [facility] Start: 04-09-2024 Telephone follow-up Alyssa Hathaway RN Work Phone: [facility] Comment on above: Transition Of Care ( TCM OON followup ) Weekly phone contact (Recurring) for Transitional Care Management Start: 04-06-2024 ambulatory Willam silva MD Work Phone: [facility] [place] Comment on above: My ursodiaol 300 mg Refill Request Start: 03-31-2024 Telephone encounter Willam todd MD Work Phone: [facility] [place] Comment on above: Patient Question Start: 03-30-2024 [...] Start: 03-30-2024 End: 03-30-2024 ambulatory WILLAM ESTRADA Facility:[facility] Start: 03-27-2024 ambulatory Willam Sernaas Facilit y:[facility] Start: 03-26-2024 Patient Outreach Alyssa Hathaway RN Work Phone: [facility] Comment on above: Transition Of Care ( YONAS / MISAEL [place] 03/24/24) Initial phone contact for Transitional Care Management Refill Request Start: 03-23-2024 Telephone encounter Deena rodriguez SUPPLY CHAIN PROGRAM MANAGER.HOG FEEDER Work Phone: [place] [facility] Comment on above: Results Start: 03-23-2024 ambulatory Willam Estrada Facilit y:[facility] Start: 03-23-2024 ambulatory [facility] Start: 03-21-2024 ambulatory [facility] Start: 03-21-2024 End: 03-24-2024 Evaluation and management of inpatient [facility] Facility:[facility] Start: 03-20-2024 End: 03-20-2024 Patient encounter procedure Deena Ivey SUPPLY CHAIN PROGRAM MANAGER.HOG FEEDER Work Phone: [place] [facility] Comment on above: Cystitis (Primary Dx ) Start: 03-20-2024 End: 03-20-2024 ambulatory Rito Sanchez NP Facility:[facility] Start: 03-20-2024 Telephone encounter Willam todd MD Work Phone: Internal Medicine [place] Comment on above: Patient Update Start: 03-09-2024 End: 03-09-2024 ambulatory Willam Estrada Facility:[facility] Start: 03-04-2024 End: 03-04-2024 Subsequent hospital visit by physician Ronaldo [facility] [place] Work Phone: Radiology Comment on above: Elbow swelling, righ t [M25.421] Start: 03-04-2024 End: 03-04-2024 Office outpatient visit 25 minutes Felipe Jolly APRN.HOG FEEDER Work Phone: [place] [facility] Comment on above: Acute cough (Primary Dx); Elbow swelling, right; Suspected COVID-19 virus infection Start: 02-28-2024 End: 02-28-2024 ambulatory León Moreno Facility:[facility] Start: 02-25-2024 Telephone encounter Allegra barboza APRN.HOG FEEDER Work Phone: [facility] [place] Comment on above: Results Start: 02-18-2024 End: 02-18-2024 Subsequent hospital visit by physician Ronaldo [facility] [place] Work Phone: Radiology Comment on above: Injury of toe on lef t foot, initial encounter [N89.922A] Start: 02-18-2024 End: 02-18-2024 Patient encounter procedure Allegra Berumen APRN.HOG FEEDER Work Phone: [facility] [place] Comment on above: YARY (obstructive sle ep apnea) (Primary Dx); Injury of toe on left foot, initial encounter Start: 01-20-2024 Telephone encounter Willam todd MD Work Phone: [facility] [place] Comment on above: Patient Question Start: 12-12-2023 ambulatory Willam silva MD Work Phone: [facility] [place] Comment on above: Miserable with stoma ch [...] Willam todd MD Work Phone: [facility] [place] Comment on above: Muscle biopsy Start: 11-28-2023 Non-patient / Non-visit Dr. Celestina Estrada Work Phone: [facility] Start: 11-28-2023 End: 11-28-2023 Admission to same day surgery center Dr. Willam Estrada Work Phone: [facility]-Endoscopy Work Phone: Start: 11-28-2023 End: 11-28-[address] Willam Estrada Work Phone: [facility] Work Phone: Start: 11-25-2023 Telephone encounter Justyna jo SUPPLY CHAIN PROGRAM MANAGER.HOG FEEDER Work Phone: Pulmonary Medicine Comment on above: Results Start: 11-22-2023 End: 11-22-2023 Subsequent hospital visit by physician [facility] (I-Stat) Work Phone: Cat Scan Comment on above: Tobacco use current [Z72.0] Start: 11-20-2023 Telephone encounter Willam todd MD Work Phone: [facility] [place] Comment on above: Orders; office notes need addenum done Start: 11-19-2023 End: 11-19-2023 Office outpatient visit 25 minutes Willam Estrada MD Work Phone: [facility] [place] Comment on above: Type 2 diabetes sara [...] Start: 11-11-2023 End: 11-11-2023 ambulatory Pulm Lab [facility] Work Phone: [facility]ULM [facility] Comment on above: Spirometry Start: 11-11-2023 End: 11-11-2023 Patient encounter procedure Pulm Lab [facility] Work Phone: [facility] Comment on above: Encounter for screen ing for lung cancer (Primary Dx); Tobacco use current Start: 11-08-2023 Refill Willam silva MD Work Phone: [facility] [place] Comment on above: Refill Request Start: 11-05-2023 End: 11-05-2023 Patient encounter procedure Mona Corrigan MD Work Phone: Pulmonary Medicine Comment on above: Asthma with COPD (HC C) (Primary Dx); Cigarette smoker; YARY (obstructive sleep apnea) Start: 10-22-2023 End: 10-22-[address] Willam Estrada Work Phone: [facility] Work Phone: Start: 10-22-2023 End: 10-22-[address] Willam Estrada Work Phone: [facility] Work Phone: Start: 09-20-2023 End: 09-20-2023 Emergency department patient visit Dr. Willam Estrada Work Phone: [facility]-Emergency Department Work Phone: Start: 08-30-2023 Telephone encounter Mona Corrigan MD Work Phone: [facility] [place] Comment on above: Orders; Care Coordin ator - Other Start: 08-26-2023 End: 08-26-[address] Willam Estrada Work Phone: [facility] Work Phone: Start: 08-09-2023 Refill Willam sliva MD Work Phone: [facility] [place] Comment on above: Refill Request Start: 07-23-2023 End: 11-14-2023 [facility] Comment on above: Acute pain of right shoulder [M25.511] Start: 07-23-2023 End: 07-23-2023 Office outpatient visit 40 minutes Willam Estrada MD Work Phone: [facility] [place] Comment on above: Essential hypertensi on (Primary Dx); Throbbing headache; Acute pain of right shoulder; Type 2 diabetes mellitus with hyperglycemia, without long-term current use of insulin (HCC); Severe persistent asthma without complication; Pain in both lower extremities; Encounter for immunization Start: 07-18-2023 ambulatory Rola Browne RN Work Phone: [facility] Comment on above: Hypertension Start: 07-18-2023 Follow-up encounter Rola Bravo RN Work Phone: [facility] Comment on above: Community Monitoring Outreach (Escalation follow up/) Start: 07-17-2023 ambulatory Rola Browne RN Work Phone: [facility] Comment on above: Community Monitoring Outreach (CDM Escalation Outreach/) Start: 07-04-2023 ambulatory Rola Browne RN Work Phone: [facility] Comment on above: Community Monitoring Outreach (CDM Escalation Outreach/) Start: 07-01-2023 Non-patient / Non-visit Dr. Celestina Estrada Work Phone: [facility] Start: 07-01-2023 End: 07-01-2023 Admission to same day surgery center Dr. Willam Estrada Work Phone: [facility]-Endoscopy Work Phone: Start: 07-01-2023 End: 07-01-[address] Willam Estrada Work Phone: [facility] Work Phone: Start: 06-28-2023 Refill Leilani Ramirez APRN.SHEET METAL ENGINEER Work Phone: [facility] [place] Comment on above: Refill Request Start: 06-27-2023 End: 06-28-2023 Emergency department patient [facility] Start: 06-20-2023 End: 06-20-[address] Wilalm Estrada Work Phone: [facility] Work Phone: Start: 06-20-2023 End: 06-20-[address] [facility] Start: 06-19-2023 End: 06-19-[address] Willam Estrada Work Phone: [facility] Work Phone: Start: 06-19-2023 End: 06-19-[address] [facility] Start: 06-10-2023 End: 06-10-[address] [facility] Work Phone: Start: 06-03-2023 Telephone encounter Willam todd MD Work Phone: [facility] [place] Comment on above: Results; Patient Upd ate Start: 05-31-2023 End: 05-31-2023 Patient encounter procedure Allegra Berumen APRN.HOG FEEDER Work Phone: [facility] [place] Comment on above: Hives (Primary Dx); Dermatitis; Other fatigue Start: 05-30-2023 End: 05-30-2023 Emergency department patient visit Dr. Willam [facility]: Start: 05-28-2023 End: 05-28-2023 Subsequent hospital visit by physician [facility] Work Phone: Radiology Comment on above: Acute cough [R05.1] Start: 05-28-2023 End: 05-28-2023 Patient encounter procedure Deena Uche ANDERSHOG FEEDER Work Phone: [facility] Comment on above: Acute cough (Primary Dx); Asthma with COPD with exacerbation ([facility]) Start: 05-26-2023 End: 05-27-2023 Emergency department patient visit Dr. Willam Estrada Work Phone: [facility]-Emergency Department Work Phone: Start: 05-22-2023 Telephone encounter Willam todd MD Work Phone: [facility] [place] Comment on above: Patient Update Start: 04-24-2023 End: 04-24-2023 ambulatory Pulm Lab [facility] Work Phone: 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 Willam Estrada Work Phone: [facility] Work Phone: Start: 04-09-2023 End: 04-09-[address] Willam Estrada Work Phone: [facility]-Ultrasound, [facility] Work Phone: Start: 04-01-2023 End: 04-01-[address] Willam Estrada Work Phone: [facility] Work Phone: Start: 04-01-2023 End: 04-01-[address] Willam Estrada Work Phone: [facility]-Laboratory Work Phone: Start: 03-28-2023 End: 03-28-[address] Willam Estrada Work Phone: [facility] Work Phone: Start: 03-25-2023 End: 03-25-[address] Willam Estrada Work Phone: [facility] Work Phone: Start: 03-25-2023 End: 03-25-[address] Willam Estrada Work Phone: [facility], [facility] Work Phone: Start: 03-21-2023 End: 03-21-[address] Willam Estrada Work Phone: [facility] Work Phone: Start: 03-14-2023 ambulatory Rola Browne RN Work Phone: [facility] Comment on above: Community Monitoring Outreach (CDM Engagement Outreach/) Start: 03-11-2023 Refill Willam silva MD Work Phone: [facility] [place] Comment on above: Refill Request Start: 02-12-2023 End: 02-12-[address] Willam Estrada Work Phone: [facility] Start: 02-08-2023 Refill Willam silva MD Work Phone: [facility] [place] Comment on above: Refill Request Start: 01-30-2023 End: 01-30-[address] Willam Estrada Work Phone: [facility] Work Phone: Start: 01-30-2023 End: 01-30-[address] Willam Estrada Work Phone: [facility]-Laboratory Start: 01-15-2023 End: 01-15-[address] Willam Estrada Work Phone: [facility] Work Phone: Start: 01-15-2023 End: 01-15-[address] Willam Estrada Work Phone: [facility]-Cat Scan, [facility] Start: 01-07-2023 End: 01-07-[address] Willam Estrada Work Phone: [facility]-Laboratory, Specimen Start: 01-04-2023 End: 01-04-[address] Willam Estrada Work Phone: [facility] Work Phone: Start: 01-04-2023 End: 01-04-[address] 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 (HCC) (Primary Dx); [...] Start: 12-11-2022 ambulatory Tex Herrera RN NURSE HEALTH PLAN SPECIALIST Comment on above: High Blood Sugar Start: 12-10-2022 Refill Willam silva MD Work Phone: [facility] [place] Comment on above: Refill Request Start: 12-09-2022 Refill Willam silva MD Work Phone: [facility] [place] Comment on above: Refill Request Start: 12-05-2022 End: 12-05-2022 Office outpatient visit 40 minutes Willam Estrada MD Work Phone: [facility] [place] Comment on above: Sinobronchitis (Prim hortencia Dx); Type 2 diabetes mellitus with diabetic neuropathy, without long-term current use of insulin (HCC); Essential hypertension; Encounter for long-term current use of medication; Mixed hyperlipidemia; Chronic obstructive pulmonary disease, unspecified COPD type (HCC); Neuropathy; Stage 2 moderate COPD by GOLD classification ([facility]); Moderate persistent asthma without complication; Depression, recurrent (HCC) Start: 12-04-2022 ambulatory Sherie Kay RN Work Phone: [facility] Comment on above: Community monitoring outreach ([facility] triggered escalation) Start: 11-26-2022 ambulatory Sherie Kay RN Work Phone: [facility] Start: 11-21-2022 End: 11-21-2022 Subsequent hospital visit by physician [facility] Work Phone: Radiology Comment on above: Acute cough [R05.1] Start: 11-21-2022 End: 11-21-2022 Patient encounter procedure Deena Ivey SUPPLY CHAIN PROGRAM MANAGER.HOG FEEDER Work Phone: [place] [facility] Comment on above: Acute cough (Primary Dx); COPD with exacerbation (HCC) Start: 11-21-2022 Telephone encounter Willam todd MD Work Phone: Internal [facility] [place] Comment on above: Patient Update Start: 10-15-2022 End: 10-15-2022 ambulatory [facility] Work Phone: Start: 10-15-2022 End: 10-15-2022 [facility] Start: 10-10-2022 End: 10-10-2022 Subsequent hospital visit by physician Bone Density [facility] Work Phone: Radiology Comment on above: Asymptomatic postmen opausal status [Z78.0] Start: 10-08-2022 End: 10-08-2022 Office outpatient visit 40 minutes Willam Estrada MD Work Phone: Internal Medicine [place] Comment on above: Essential hypertensi on (Primary [...] Subsequent hospital visit by physician Mri Radio [facility] (I-Stat/1.5t) Work Phone: Radiology Comment on above: Acute bilateral low back pain with bilateral sciatica [M54.42, M54.41] Start: 09-22-2022 ambulatory Rola Browne RN Work Phone: [facility] Comment on above: Community Monitoring Outreach (CDM Escalation Outreach) Start: 09-20-2022 Telephone encounter Willam todd MD Work Phone: Internal Medicine [place] Comment on above: Urologoy Referral Start: 09-19-2022 Telephone encounter Willam todd MD Work Phone: Internal Medicine [place] Comment on above: Urology referral Start: 09-17-2022 Documentation procedure Mammog steve Coordinator [facility] Start: 09-17-2022 Letter encounter Mammography Coordinator [facility] Department Start: 09-14-2022 End: 09-14-2022 Subsequent hospital visit by physician Screen Mammo [facility] Mammogram Comment on above: Encounter for screen ing mammogram for breast cancer [Z12.31] Start: 09-07-2022 Telephone encounter Mona Corrigan MD Work Phone: Pulmonary Medicine Comment on above: Orders Start: 09-04-2022 Telephone encounter Willam todd MD Work Phone: Internal Medicine [place] Comment on above: Thrush concern Start: 08-25-2022 End: 08-25-2022 ambulatory Daphney Pro MD Work Phone: Internal Medicine [place] Comment on above: COVID-19 virus infec tion (Primary Dx); Severe persistent asthma, unspecified whether complicated; Type 2 diabetes mellitus with diabetic neuropathy, without long-term current use of insulin (HCC) Start: 08-25-2022 End: 08-25-2022 Telemedicine consultation with patient [facility]ney Pro MD [facility] Start: 08-24-2022 End: 08-24-2022 Emergency department patient visit [facility]Emer[facility] Start: 08-24-2022 ambulatory Divina Wright RN NURSE HEALTH PLAN SPECIALIST Comment on above: Covid19 Concern Information Start: 08-09-2022 ambulatory Mona Corrigan MD Work Phone: Pulmonary Medicine Comment on above: LD lung CT scan Start: 08-07-2022 End: 08-07-2022 Office outpatient visit 25 minutes Willam Estrada MD Work Phone: Internal Medicine [place] Comment on above: Acute bilateral low back pain with bilateral sciatica (Primary Dx); Radiculopathy of lumbar region; Spinal stenosis of lumbar region with neurogenic claudication; Type 2 diabetes mellitus with diabetic neuropathy, without long-term current use of insulin (HCC); Cigarette smoker; Encounter for screening mammogram for breast cancer; Encounter for immunization Start: 08-05-2022 Refill Willam silva MD Work Phone: Internal Medicine [place] Comment on above: Refill Request Start: 07-20-2022 Telephone encounter Willam todd MD Work Phone: Internal Medicine [place] Comment on above: Medication Question Start: 07-16-2022 End: 11-07-2022 Subsequent hospital visit by physician [facility] Work Phone: Radiology Comment on above: Lower abdominal pain [R10.30] Start: 07-12-2022 Refill Willam silva MD Work Phone: Internal Medicine [place] Comment on above: Refill Request Start: 07-09-2022 Telephone encounter Diana Andres APRN.HOG FEEDER Work Phone: Internal Medicine [place] Comment on above: Results Start: 07-05-2022 End: 07-05-2022 Patient encounter procedure Diana Andres SUPPLY CHAIN PROGRAM MANAGER.HOG FEEDER Work Phone: Internal Medicine [place] Comment on above: Type 2 diabetes sara itus with diabetic neuropathy, without long-term current use of insulin ([facility]) (Primary Dx); Lower abdominal pain; Recent urinary tract infection; Thrush Start: 07-04-2022 Telephone encounter Diana Andres APRN.HOG FEEDER Work Phone: Internal Medicine [place] Comment on above: Patient Update Start: 07-02-2022 End: 07-02-2022 Emergency department patient visit [facility]Emer[facility] Start: 07-02-2022 End: 07-02-2022 Patient encounter procedure Diana Andres APRN.HOG FEEDER Work Phone: Internal Medicine [place] Comment on above: Severe persistent as thma, unspecified whether complicated (Primary Dx); Chronic obstructive pulmonary disease, unspecified COPD type ([facility]); Type 2 diabetes mellitus with diabetic neuropathy, without long-term current use of insulin ([facility]); Recent urinary tract infection; Abdominal tenderness without rebound tenderness, unspecified location Start: 06-27-2022 End: 06-27-2022 Patient encounter procedure Diana Andres SUPPLY CHAIN PROGRAM MANAGER.HOG FEEDER Work Phone: Internal Medicine [place] Comment on above: COPD with exacerbati on (HCC) (Primary Dx); Moderate persistent asthma with acute exacerbation; Urinary tract infection without hematuria, site unspecified Start: 06-27-2022 End: 06-27-2022 Subsequent hospital visit by physician Ronaldo [facility] [place] Work Phone: Radiology Comment on above: Moderate persistent asthma with acute exacerbation [J45.41] Start: 06-26-2022 ambulatory Rola Browne RN Work Phone: [facility] Comment on above: Community Monitoring Outreach (Insight CDM Escalation) Start: 06-26-2022 Telephone encounter Willam todd MD Work Phone: Internal Medicine [place] Comment on above: Patient Update; Orde rs Start: 06-22-2022 End: 06-22-2022 Office outpatient visit 15 minutes Rufus Cruz PA-C Work Phone: [facility] Comment on above: Painful urination (P rimary Dx); URI, acute Start: 06-20-2022 End: 06-20-2022 Patient encounter procedure [facility] Start: 06-11-2022 Refill Willam silva MD Work Phone: Internal Medicine [place] Comment on above: Refill Request; Refi ll Request Start: 06-01-2022 End: 06-01-[address] Willam Estrada Work Phone: [facility] Work Phone: Start: 06-01-2022 End: 06-01-[address] Willam Estrada Work Phone: [facility], [facility] Start: 05-15-2022 ambulatory Sherie Kay RN Work Phone: [facility] Comment on above: Community monitoring outreach (CDM [facility] triggered call) Start: 05-08-2022 End: 05-08-2022 ambulatory Steven Faye [facility] Comment on above: Chronic midline low back pain, unspecified whether sciatica present (Primary Dx); S/P lumbar laminectomy; Gait instability Start: 04-19-2022 End: 04-19-2022 ambulatory Steven Faye [facility] Comment on above: Chronic midline low back pain, unspecified whether sciatica present (Primary Dx); S/P lumbar laminectomy; Gait instability Start: 04-17-2022 End: 04-17-2022 ambulatory Steven Faye [facility] Comment on above: Chronic midline low back pain, unspecified whether sciatica present (Primary Dx); S/P lumbar laminectomy; Gait instability Start: 04-11-2022 Refill Willam silva MD Work Phone: Internal Medicine [place] Comment on above: Refill Request Start: 04-10-2022 End: 04-10-2022 [facility] Comment on above: S/P lumbar laminecto my; Chronic midline low back pain, unspecified whether sciatica present; Spinal stenosis of lumbar region, unspecified whether neurogenic claudication present; Gait instability Start: 04-06-2022 End: 04-06-2022 Office outpatient visit 25 minutes Willam Estrada MD Work Phone: Internal Medicine [place] Comment on above: Chronic midline low back [...] silva MD Work Phone: [facility] [place] Start: 03-13-2022 End: 03-13-2022 Subsequent hospital visit by physician Ronaldo [facility] [place] Work Phone: Radiology Comment on above: Acute cough [R05.1] Start: 03-09-2022 End: 03-09-2022 ambulatory Lori Matamoros PA-C Work Phone: General Surgery Comment on above: Hemorrhoids, unspeci fied hemorrhoid type (Primary Dx); Hiatal hernia; Gastroesophageal reflux disease, unspecified whether esophagitis present; Tubular adenoma Start: 03-09-2022 End: 03-09-2022 Telemedicine consultation with patient Lori Matamoros PA-C Work Phone: [facility] Start: 02-23-2022 Refill Willam silva MD Work Phone: Internal Medicine [place] Comment on above: Refill Request Start: 02-22-2022 End: 02-22-2022 Subsequent hospital visit by physician Patti Manrique MD Work Phone: LD SURGERY Comment on above: Rectal bleeding [K62 .5] Start: 02-16-2022 End: 02-16-[address] Willam Estrada Work Phone: [facility] [facility] Start: 02-09-2022 End: 02-09-2022 Patient encounter procedure Patti Manrique MD Work Phone: General Surgery Comment on above: Rectal bleeding (Mitra tex Dx); Epigastric abdominal pain; Abdominal bloating; Rectus diastasis Start: 02-09-2022 Telephone encounter Patti Colindres MD Work Phone: General Surgery Comment on above: 02-22-2022 COLON EGD LODI Start: 02-06-2022 End: 02-06-2022 Patient encounter procedure Felipe Jolly APRN.HOG FEEDER Work Phone: [facility] Comment on above: Abdominal bloating ( Primary Dx); Abdominal mass, unspecified abdominal location Start: 02-06-2022 Telephone encounter Odilia Costello [facility] Work Phone: [facility] Comment on above: Allied Health Visit (MyChart Wood Box Maker ) Start: 01-24-2022 Non-patient / Non-visit Dr. Celestina Estrada Work Phone: [facility] Start: 01-24-2022 End: 01-24-[address] 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 Willam Estrada Work Phone: [facility]-Laboratory Start: 01-15-2022 End: 01-15-[address] Willam Estrada Work Phone: [facility] Gastroenterology Start: 01-09-2022 End: 01-09-2022 Office outpatient visit 25 minutes Willam Estrada MD Work Phone: Internal Medicine [place] Comment on above: Gross hematuria (Mitra tex Dx); Acute cystitis with hematuria; Dysuria; Urinary frequency; Urinary urgency; Essential hypertension; Cigarette smoker Start: 01-09-2022 End: 01-09-[address] Will[facility]strada [facility] Start: 01-04-2022 End: 01-04-[address] Willam Estrada Work Phone: [facility] Start: 12-26-2021 End: 12-26-[address] Willam Estrada Work Phone: [facility]-Nuclear Medicine, [facility] Start: 12-22-2021 End: 12-22-[address] Willam Estrada Work Phone: [facility]-Cat Scan, [facility] Start: 12-18-2021 ambulatory Kimmy de la cruz RN Work Phone: [facility] Comment on above: community monitoring outreach (enrollment) Start: 12-15-2021 End: 12-15-[address] Willam Estrada Work Phone: [facility]-Laboratory Start: 12-14-2021 End: 12-14-[address] Willam Estrada Work Phone: [facility]Labor[facility] Start: 12-14-2021 End: 12-14-[address] Willam Estrada Work Phone: [facility] Gastroenterology Start: 12-13-2021 ambulatory Kimmy de la cruz RN Work Phone: [facility] Comment on above: community monitoring outreach (enrollment) Start: 12-13-2021 E-mail encounter fro m caregiver Willam Estrada MD Work Phone: [facility] [place] Start: 12-13-2021 Follow-up encounter Willam todd MD Work Phone: Internal Medicine [place] Comment on above: Follow-up appointmen t Start: 12-08-2021 Telephone encounter Willam todd MD Work Phone: Internal Medicine [place] Comment on above: Medication Request Start: 12-04-2021 End: 12-04-2021 Office outpatient visit 25 minutes Willam Estrada MD Work Phone: Internal Medicine [place] Comment on above: Neuropathy (Primary Dx); Anxiety and depression; Neck pain, musculoskeletal; Insomnia, unspecified type; Abdominal distension, gaseous Start: 11-15-2021 Non-patient / Non-visit Dr. Celestina Estrada Work Phone: [facility] Start: 10-11-2021 End: 10-11-[address] Willam Estrada Work Phone: [facility] Start: 10-04-2021 End: 10-04-[address] Willam Estrada Work Phone: [facility] Start: 08-14-2021 End: 08-14-2021 Subsequent hospital visit by physician Ronaldo [facility] Work Phone: Radiology Comment on above: Chest pain, unspecif ied type [R07.9] Start: 03-22-2021 End: 03-22-2021 Subsequent hospital visit by physician Xr [facility] [place] Work Phone: Radiology Comment on above: Cough [R05] Start: 08-17-2020 End: 08-17-2020 Subsequent hospital visit by physician Xr [facility] [place] Work Phone: Radiology Comment on above: S/P lumbar laminecto my [Z98.890] Start: 08-02-2017 End: 08-02-2017 Ambulatory RADHA JETT Facility:B Start: 07-22-2017 End: 07-23-2017 Ambulatory RADHA JETT Facility:[facility] Procedures Date Procedure Procedure Detail Performing Clinician Start: 02-25-2025 Urnls dip stick/tablet rgnt auto w/o microscopy Martha Diop SUPPLY CHAIN PROGRAM MANAGER.HOG FEEDER Work Phone: Start: 01-12-2025 Urnls dip stick/tablet rgnt auto w/o microscopy Deena Ivey SUPPLY CHAIN PROGRAM MANAGER.HOG FEEDER Work Phone: Start: 12-18-2024 MRI of lumbar spine Dr. Willam Estrada MD Work Phone: Start: 11-23-2024 CT LUNG SCREEN WO MARGARET Mora SUPPLY CHAIN PROGRAM MANAGER.HOG FEEDER Work Phone: Start: 10-07-2024 Screening digital breast [...] stick/tablet rgnt auto w/o microscopy Deena Ivey SUPPLY CHAIN PROGRAM MANAGER.HOG FEEDER Work Phone: Start: 03-30-2024 Culture bacterial quanttative colony count urine Willam Estrada MD Work Phone: Start: 03-20-2024 Urnls dip stick/tablet rgnt auto w/o microscopy Deena Ivey SUPPLY CHAIN PROGRAM MANAGER.HOG FEEDER Work Phone: Start: 03-04-2024 Radex elbow complete minimum 3 views Felipe Jolly SUPPLY CHAIN PROGRAM MANAGER.HOG FEEDER Work Phone: Start: 03-04-2024 Radiologic exam chest 2 views Felipe ariasbury SUPPLY CHAIN PROGRAM MANAGER.HOG FEEDER Work Phone: Start: 02-18-2024 Radex foot complete minimum 3 views Allegra Berumen SUPPLY CHAIN PROGRAM MANAGER.HOG FEEDER Work Phone: Start: 11-28-2023 End: 11-28-[address] Willam Estrada Work Phone: Start: 11-22-2023 CT LUNG SCREEN JAYLON Mora SUPPLY CHAIN PROGRAM MANAGER.HOG FEEDER Work Phone: Start: 11-11-2023 Nitric oxide gas [...] chest [address] [facility] SUPPLY CHAIN PROGRAM MANAGER.HOG FEEDER Work Phone: Start: 05-26-2023 CT of abdomen [...] chest [address] [facility] SUPPLY CHAIN PROGRAM MANAGER.HOG FEEDER Work Phone: Start: 10-15-2022 CT of chest [...] pelvic nonobstetric image dcmtn limited/f/u Diana Andres SUPPLY CHAIN PROGRAM MANAGER.HOG FEEDER Work Phone: Start: 07-02-2022 CT of abdomen and pelvis without contrast Start: 07-02-2022 Urnls dip stick/tablet rgnt auto w/o microscopy Diana Andres SUPPLY CHAIN PROGRAM MANAGER.HOG FEEDER Work Phone: Start: 06-27-2022 Radiologic exam chest 2 views Willam todd MD Work Phone: Start: 06-22-2022 Urnls dip stick/tablet rgnt auto w/o microscopy Rufus Cruz PA-C Work Phone: Start: 06-01-[address] Willam hernandez Work Phone: Start: 06-01-[address] Willam silva Work Phone: Start: 03-13-2022 Radiologic exam chest 2 views Deena Mary ggs SUPPLY CHAIN PROGRAM MANAGER.HOG FEEDER Work Phone: Start: 02-22-2022 Gluc bld gluc mntr dev cleared fda spec home use Camden Snyder SUPPLY CHAIN PROGRAM MANAGER.WET [employer]ESS MILLER [employer] Work Phone: Start: 02-18-2022 Colonoscopy Lori Matamoros [...] Radiologic exam chest 2 views Deanna manriquez SUPPLY CHAIN PROGRAM MANAGER.HOG FEEDER Work Phone: Start: 03-22-2021 Radiologic exam chest 2 views Carlos luna SUPPLY CHAIN PROGRAM MANAGER.HOG FEEDER Work Phone: Start: 08-17-2020 Radex spine lumbosacral [...] 11-27-2033 Screening for malignant neoplasm of colon [facility] Start: 02-19-2032 Colonoscopy COLONOSCOPY [facility] Start: 02-19-2032 COLORECTAL CANCER SCREENING COLORECTAL CANCER SCREENING [facility] Start: 02-19-2032 Screening for malignant neoplasm of colon [facility] Start: 12-25-2025 Hepatitis B surface antibody level LDL Cholesterol [facility] Start: 12-20-2025 End: 12-20-2025 Patient encounter procedure 12/20/2025 3:40 PM EDT Office Visit [facility] [place] [address] [place] [address] Willam Estrada MD [address] [place] [address] 4 month follow up [facility] [place] Comment on above: 4 month follow up Start: 11-29-2025 End: 11-29-2025 Patient encounter procedure Cat Scan Comment on above: yearly LDCT yearly LCS Start: 11-24-2025 BP Controlled (<130/80) BP Controlled (<130/80) [facility] Start: 11-23-2025 Screening for malignant neoplasm of lung Lung Cancer Screening [facility] Start: 11-18-2025 Annual PCP Team Chronic Disease Visit Annual PCP Team Chronic Disease Visit [facility] Start: 11-18-2025 BP Controlled (<130/80) BP Controlled (<130/80) [facility] Start: 10-13-2025 Glaucoma screening Dilated Retinal Exam [facility] Start: 10-07-2025 Screening for malignant neoplasm of breast Mammogram Screening [facility] Start: 08-12-2025 Annual PCP Team Chronic Disease Visit Annual PCP Team Chronic Disease Visit [facility] Start: 08-10-2025 End: 08-10-2025 Patient encounter procedure 08/10/2025 6:20 PM EST Office Visit [facility] [place] [address] [place] [address] Willam Estrada MD [address] [place] [address] 4 month follow up [facility] [place] Comment on above: 4 month follow up Start: 08-01-2025 BP Controlled (<130/80) BP Controlled (<130/80) [facility] Start: 07-29-2025 Annual PCP Team Chronic Disease Visit Annual PCP Team Chronic Disease Visit [facility] Start: 07-29-2025 BP Controlled (<130/80) BP Controlled (<130/80) [facility] Start: 06-26-2025 Hemoglobin A1c measurement HbA1C [facility] Start: 06-23-2025 Screening for malignant neoplasm of lung Lung Cancer Screening [facility] Start: 06-22-2025 Hepatitis B screening Urine Albumin:Creatinine Ratio [facility] Start: 06-22-2025 Hepatitis B surface antibody level LDL Cholesterol [facility] Start: 05-19-2025 Annual PCP Team Chronic Disease Visit Annual PCP Team Chronic Disease Visit [facility] Start: 05-19-2025 BP Controlled (<130/80) BP Controlled (<130/80) [facility] Start: 05-10-2025 Influenza vaccination Influenza Vaccine (Season Ended) [facility] Start: 05-07-2025 BP Controlled (<130/80) BP Controlled (<130/80) [facility] Start: 04-20-2025 Annual PCP Team Chronic Disease Visit Annual PCP Team Chronic Disease Visit [facility] Start: 04-20-2025 BP Controlled (<130/80) BP Controlled (<130/80) [facility] Start: 03-30-2025 Annual PCP Team Chronic Disease Visit Annual PCP Team Chronic Disease Visit [facility] Start: 03-30-2025 BP Controlled (<130/80) BP Controlled (<130/80) [facility] Start: 03-24-2025 End: 03-24-2025 Patient encounter procedure 03/24/2025 4:00 PM EDT Office Visit [facility] [place] [address] [place] [address] Willam Estrada MD [address] [place] [address] 4 month follow up [facility] [place] Comment on above: 4 month follow up Start: 03-02-2025 End: 03-02-2025 Patient encounter procedure 03/02/2025 3:30 PM EDT Office Visit Vascular Surgery [address] [place] [address] Jonnathan Mckeon, DO [address] [place] [address] rescheduled from 01/19 Vascular Surgery Comment on above: rescheduled from 01/19 Start: 02-17-2025 Annual PCP Team Chronic Disease Visit Annual PCP Team Chronic Disease Visit [facility] Start: 02-04-2025 Patient referral [facility] Work Phone: Start: 01-22-2025 End: 01-22-2025 Patient encounter procedure Pulmonary Medicine Comment on above: 8 wk f/u Start: 01-19-2025 End: 01-19-2025 Patient encounter procedure 01/19/2025 3:00 PM EDT Office Visit Vascular Surgery [address] [place], [place] [id number] Jonnathan Mckeon, DO [address] [place], [place] [id number] Family history of abdominal aortic aneurysm (AAA) [Z82.49]; 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] Vascular Surgery Comment on above: Family history of abdominal aortic aneur ysm (AAA) [Z82.49]; 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] Start: 12-21-2024 Hemoglobin A1c measurement HbA1C [facility] Start: 12-05-2024 Annual PCP Team Chronic Disease Visit Annual PCP Team Chronic Disease Visit [facility] Start: 11-25-2024 End: 11-25-2024 Patient encounter procedure 11/25/2024 1:00 PM EDT Office Visit Pulmonary Medicine [address] [place] [address] Leila Rubi PAJosefinaC [address] [place] [address] EST PATIENT / ANNUAL Pulmonary Medicine Comment on above: EST PATIENT / ANNUAL Start: 11-24-2024 End: 11-24-2024 Patient encounter procedure 11/24/2024 1:45 PM EDT Office Visit Neurology [address] [place] [address] Indigo Nichols PA-C [address] [place] [address] Neuropathy, no EMG Neurology Comment on above: Neuropathy, no EMG Start: 11-23-2024 End: 11-23-2024 Patient encounter procedure 11/23/2024 3:40 PM EDT Appointment Cat Scan [address] [address] Tobacco use current [Z72.0] Cat Scan Comment on above: Tobacco use current [Z72.0] Start: 11-21-2024 Screening for malignant neoplasm of lung Lung Cancer Screening [facility] Start: 11-18-2024 End: 11-18-2024 Patient encounter procedure 11/18/2024 4:00 PM EDT Office Visit Internal Medicine [place] [address] [place] [address] Willam Estrada MD [address] [place] [address] 4 month follow up-DM [facility] [place] Comment on above: 4 month follow up-DM Start: 11-18-2024 Annual PCP Team Chronic Disease Visit Annual PCP Team Chronic Disease Visit [facility] Start: 11-18-2024 BP Controlled (<130/80) BP Controlled (<130/80) [facility] Start: 11-15-2024 Hepatitis B surface antibody level LDL Cholesterol [facility] Start: 11-03-2024 End: 11-03-2024 Patient encounter procedure 11/03/2024 3:45 PM EST Office Visit Neurology [address] [facility] [place], [place] [id number] Indigo Nichols PA-C [address] [facility] [place] [address] Type 2 diabetes mellitus with diabetic neuropathy, without long-term current use of insulin (HCC) [E11.40] Neurology Comment on above: Type 2 diabetes mellitus with diabetic n europathy, without long-term current use of insulin (HCC) [E11.40] Start: 10-10-2024 Glaucoma screening Dilated Retinal Exam [facility] Start: 10-07-2024 End: 10-07-2024 Patient encounter procedure 10/07/2024 3:00 PM EST Appointment Mammogram [address] [place] [address] mammo w starla Mammogram Comment on above: mammo w starla Start: 09-30-2024 Screening for malignant neoplasm of breast Mammogram Screening [facility] Start: 09-16-2024 End: 09-16-2024 Patient encounter procedure 09/16/2024 4:40 PM EST Office Visit [facility] [place] [address] [place] [address] Deanna Pagan, SUPPLY CHAIN PROGRAM MANAGER.HOG FEEDER [address] [facility] [address] 1 Month F/U [facility] [place] Comment on above: 1 Month F/U Start: 09-08-2024 Patient referral [facility] Work Phone: Start: 08-12-2024 End: 08-12-2024 Patient encounter procedure 08/12/2024 4:20 PM EST Office Visit [facility] [place] [address] [place] [address] Deanna Pagan, SUPPLY CHAIN PROGRAM MANAGER.HOG FEEDER [address] [facility] [place] [address] hospital follow up for pneumonia and low bp [facility] [place] Comment on above: hospital follow up for pneumonia and low bp Start: 08-11-2024 End: 08-11-2024 Patient encounter procedure 08/11/2024 2:45 PM EST Office Visit Pulmonary Medicine [address] [place] [address] Mona Corrigan MD [address] [place] [address] follow up / pneumonia Pulmonary Medicine Comment on above: follow up / pneumonia Start: 08-11-2024 End: 11-10-2024 IgE [Units/volume] in Serum or Plasma [facility] Comment on above: Expected: 08/11/2024, Expires: Start: 08-11-2024 End: 11-10-2024 Natriuretic peptide.B prohormone N-Terminal [Mass/volume] in Serum or Plasma [facility] Work Phone: Comment on above: Expected: 08/11/2024, Expires: Start: 08-10-2024 End: 08-10-2024 Patient encounter procedure 08/10/2024 3:00 PM EST Office Visit [facility] Medicine [place] [address] [facility] [place] [address] Deanna Pagan, SUPPLY CHAIN PROGRAM MANAGER.HOG FEEDER [address] [facility] [place] [address] hospital follow up for pneumonia and low bp [facility] [place] Comment on above: hospital follow up for pneumonia and low bp Start: 08-09-2024 [facility] Start: 08-09-2024 [facility] Start: 08-07-2024 End: 08-07-2024 Patient encounter procedure 08/07/2024 11:00 AM EST Office Visit [facility] Medicine [place] [address] [facility] [place] [address] Leilani Ramirez, SUPPLY CHAIN PROGRAM MANAGER.SHEET METAL ENGINEER [address] [facility] [place] [address] Discharged from [facility] 08/05/24- Rule out sepsis [facility] [place] Comment on above: Discharged from [facility] 08/05/24- Rule out s epsis Start: 08-06-2024 Annual PCP Team Chronic Disease Visit Annual PCP Team Chronic Disease Visit [facility] Start: 08-06-2024 [facility] Start: 08-05-2024 [facility] Start: 08-05-2024 Patient discharge [facility] Start: 08-03-2024 [facility] Start: 08-02-2024 Following clinical pathway protocol [facility] Start: 08-02-2024 Assessment of risk of venous thromboembolism [facility] Start: 08-02-2024 Cardiac monitoring [facility] Start: 08-02-2024 Care regimes management [facility] Start: 08-02-2024 Catheterization of vein [facility] Start: 08-02-2024 Inhalation therapy procedure [facility] Start: 08-02-2024 Insertion of catheter into peripheral vein [facility] Start: 08-02-2024 Measuring intake and output [facility] Start: 08-02-2024 Notification of physician [facility] Start: 08-02-2024 Oxygen therapy [facility] Start: 08-02-2024 Providing care according to standard [facility] Start: 08-02-2024 Provision of activity privileges [facility] Start: 08-02-2024 Referral to service [facility] Start: 08-02-2024 Tobacco use cessation education [facility] Start: 08-02-2024 End: 08-02-2024 [facility] Start: 08-02-2024 Admission procedure [facility] Start: 07-29-2024 End: 10-28-2024 Cobalamin (Vitamin B12) [Mass/volume] in Serum or Plasma [facility] Comment on above: Expected: 07/29/2024, Expires: Start: 07-29-2024 End: 10-28-2024 Methylmalonate [Moles/volume] in Serum or Plasma [facility] Work Phone: Comment on above: Expected: 07/29/2024, Expires: Start: 07-29-2024 End: 10-28-2024 PROT ELECT SERUM WITH ODELL AND INTERP [facility] Comment on above: Expected: 07/29/2024, Expires: 5 Start: 07-29-2024 End: 10-28-2024 Thyrotropin [Units/volume] in Serum or Plasma [facility] Comment on above: Expected: 07/29/2024, Expires: 5 Start: 07-29-2024 End: 07-29-2024 Patient encounter procedure [facility] [place] Comment on above: 4 month follow up-DM Type 2 diabetes sara itus with diabetic neuropathy, without long-term current use of insulin (HCC) [E11.40] Start: 07-23-2024 Covid-19 Vaccine () Covid-19 Vaccine () [facility] Comment on above: Postponed from 05/10/2023 (Declined at t his time) Start: 07-23-2024 Hepatitis B Vaccine (1 of 3 - Risk 3-dose series) Hepatitis B Vaccine (1 of 3 - Risk 3-dose series) [facility] Comment on above: Postponed from 2020 (Declined at t his time) Start: 07-23-2024 RSV Vaccine (1 - 1-dose 60+ series) RSV Vaccine (1 - 1-dose 60+ series) [facility] Comment on above: Postponed from 2020 (Declined at t his time) Start: 07-23-2024 RSV Vaccine (1 - Risk 60-74 years 1-dose series) RSV Vaccine (1 - Risk 60-74 years 1-dose series) [facility] Comment on above: Postponed from 2020 (Declined at t his time) Start: 07-23-2024 Urine microalbumin profile DTaP,Tdap,Td Vaccine (3 - Tdap) [facility] Comment on above: Postponed from 09/14/2018 (Declined at t his time) Start: 06-30-2024 End: 06-30-2024 Patient encounter procedure 06/30/2024 3:00 PM EDT Office Visit Pulmonary Medicine [address] [place] [address] Roxi Rouse APRN.HOG FEEDER [address] [facility] [address] [place] [address] F/U CT RESULTS [facility]monary Medicine Comment on above: F/U CT RESULTS Start: 06-23-2024 End: 06-23-2024 Patient encounter procedure 06/23/2024 3:20 PM EDT Appointment Cat Scan [address] [place] [address] Cat Scan Comment on above: CHEST CT Start: 06-23-2024 End: 09-22-2024 Microalbumin/Creatinine [Mass Ratio] in Urine ALBUMIN/CREATININE RATIO, URINE Lab Routine Type 2 diabetes mellitus with hyperglycemia, without long-term current use of insulin (HCC) Expected: 06/23/2024, Expires: 09/22/2024 [facility] Comment on above: Expected: 06/23/2024, Expires: Start: 06-22-2024 End: 06-06-2025 CT Chest WO contrast CT CHEST WO IVCON Radiology Routine Lung nodules Expected: 06/22/2024, Expires: 06/06/2025 [facility] Work Phone: Comment on above: Expected: 06/22/2024, Expires: Start: 05-31-2024 Annual PCP Team Chronic Disease Visit Annual PCP Team Chronic Disease Visit [facility] Start: 05-31-2024 BP Controlled (<130/80) BP Controlled (<130/80) [facility] Start: 05-24-2024 Annual PCP Team Chronic Disease Visit Annual PCP Team Chronic Disease Visit [facility] Start: 05-20-2024 BP Controlled (<130/80) BP Controlled (<130/80) [facility] Start: 05-10-2024 Covid-19 Vaccine ( season) Covid-19 Vaccine ( season) [facility] Start: 05-10-2024 Covid-19 Vaccine ( season) Covid-19 Vaccine ( season) [facility] Start: 05-10-2024 Influenza vaccination Influenza Vaccine (#[facility]) [facility] Start: 05-07-2024 End: 05-07-2024 Patient encounter procedure 05/07/2024 2:45 PM EDT Office Visit Pulmonary Medicine [address] [place] [address] Mona Corrigan MD [address] [place] [address] 6 MONTH FOLLOW UP Pulmonary Medicine Comment on above: 6 MONTH FOLLOW UP Start: 05-06-2024 Hepatitis B surface antibody level LDL Cholesterol [facility] Start: 04-20-2024 End: 04-20-2024 Patient encounter procedure 04/20/2024 10:40 AM EDT Office Visit Internal Medicine [place] [address] [place] [address] Willam Estrada MD [address] [place] [address] Asthma Flare (Nurse Triage Call) [facility] [place] Comment on above: Asthma Flare (Nurse Triage Call) Start: 04-03-2024 ANNUAL PCP TEAM CHRONIC DISEASE VISIT ANNUAL PCP TEAM CHRONIC DISEASE VISIT [facility] Start: 03-30-2024 End: 03-30-2024 Patient encounter procedure 03/30/2024 2:00 PM EDT Office Visit [facility] [place] [address] [place] [address] Willam Estrada MD [address] [place] [address] [facility] f/u sepsis,uti (pt declined to schedule sooner appt, wants to wait until she finishes antibiotic) [facility] [place] Comment on above: [facility] f/u sepsis,uti (pt declined to sched ule sooner appt, wants to wait until she finishes antibiotic) Start: 03-24-2024 End: 03-24-2024 Patient encounter procedure 03/24/2024 6:20 PM EDT Office Visit [facility] Medicine [place] [address] [place] [address] Willam Estrada MD [address] [place], [place] [id number] 4 month follow up [facility] [place] Comment on above: 4 month follow up Start: 03-07-2024 Hemoglobin A1c measurement HbA1C [facility] Start: 03-04-2024 End: 03-18-2024 COVID & INFLUENZA A/B & RSV NAAT, ROUTINE COVID & INFLUENZA A/B & RSV NAAT, ROUTINE Microbiology Routine Acute cough Suspected COVID-19 virus infection Expected: 03/04/2024, Expires: 03/18/2024 [facility] Work Phone: Comment on above: Expected: 03/04/2024, Expires: Start: 02-18-2024 End: 02-18-2024 Patient encounter procedure 02/18/2024 3:20 PM EDT Office Visit [facility] Medicine [place] [address] [place] [address] Allegra Berumen APRN.HOG FEEDER [address] [place] [address] CPAP follow up for insurance [facility] [place] Comment on above: CPAP follow up for insurance Start: 02-16-2024 Hemoglobin A1c measurement HbA1C [facility] Start: 12-22-2023 BP CONTROLLED (<130/80) BP CONTROLLED (<130/80) [facility] Start: 12-20-2023 Hepatitis B screening URINE ALBUMIN:CREATININE RATIO [facility] Start: 12-20-2023 Hepatitis B surface antibody level LDL CHOLESTEROL [facility] Start: 12-19-2023 ANNUAL PCP TEAM CHRONIC DISEASE VISIT ANNUAL PCP TEAM CHRONIC DISEASE VISIT [facility] Start: 12-19-2023 BP CONTROLLED (<130/80) BP CONTROLLED (<130/80) [facility] Start: 12-06-2023 ANNUAL PCP TEAM CHRONIC DISEASE VISIT ANNUAL PCP TEAM CHRONIC DISEASE VISIT [facility] Start: 12-06-2023 SHINGRIX VACCINE (1 of 2) SHINGRIX VACCINE (1 of 2) [facility] Comment on above: Postponed from 2010 (Declined at t his time) Start: 11-28-2023 Patient discharge [facility] Start: 11-22-2023 BP CONTROLLED (<130/80) BP CONTROLLED (<130/80) [facility] Start: 11-06-2023 Hemoglobin A1c measurement HbA1C [facility] Start: 11-06-2023 Hemoglobin A1c/Hemoglobin.total in Blood HbA1C [facility] Start: 10-09-2023 Hepatitis C antibody, confirmatory test DILATED RETINAL EXAM [facility] Start: 10-08-2023 ANNUAL PCP TEAM CHRONIC DISEASE VISIT ANNUAL PCP TEAM CHRONIC DISEASE VISIT [facility] Start: 10-08-2023 BP CONTROLLED (<130/80) BP CONTROLLED (<130/80) [facility] Start: 09-20-2023 [facility] Start: 09-14-2023 Mammography [facility] Start: 08-25-2023 ANNUAL PCP TEAM CHRONIC DISEASE VISIT ANNUAL PCP TEAM CHRONIC DISEASE VISIT [facility] Start: 08-07-2023 ANNUAL PCP TEAM CHRONIC DISEASE VISIT ANNUAL PCP TEAM CHRONIC DISEASE VISIT [facility] Start: 07-31-2023 Hepatitis B surface antibody level LDL CHOLESTEROL [facility] Start: 07-05-2023 ANNUAL PCP TEAM CHRONIC DISEASE VISIT ANNUAL PCP TEAM CHRONIC DISEASE VISIT [facility] Start: 07-05-2023 BP CONTROLLED (<130/80) BP CONTROLLED (<130/80) [facility] Start: 07-02-2023 ANNUAL PCP TEAM CHRONIC DISEASE VISIT ANNUAL PCP TEAM CHRONIC DISEASE VISIT [facility] Start: 07-01-2023 Egd transoral biopsy single/multiple EGD BIOPSY SINGLE/MULTIPLE [facility] Start: 07-01-2023 Patient discharge [facility] Start: 06-28-2023 [facility] Start: 06-27-2023 [facility] Start: 06-27-2023 ANNUAL PCP TEAM CHRONIC DISEASE VISIT ANNUAL PCP TEAM CHRONIC DISEASE VISIT [facility] Start: 06-20-2023 Hemoglobin A1c/Hemoglobin.total in Blood HBA1C [facility] Start: 05-31-2023 End: 07-31-2023 JOSE F BY IFA WITH REFLEX [facility] Work Phone: Comment on above: Expected: 05/31/2023, Expires: 3 Start: 05-10-2023 Covid-19 Vaccine ( season) Covid-19 Vaccine () [facility] Start: 05-10-2023 Influenza vaccination [facility] Start: 04-06-2023 ANNUAL PCP TEAM CHRONIC DISEASE VISIT ANNUAL PCP TEAM CHRONIC DISEASE VISIT [facility] Start: 04-06-2023 BP CONTROLLED (<130/80) BP CONTROLLED (<130/80) [facility] Start: 04-06-2023 PNEUMOCOCCAL (2 - PCV) PNEUMOCOCCAL (2 - PCV) [facility] Comment on above: Postponed from 09/09/2011 (Declined at t his time) Start: 04-06-2023 Urine microalbumin profile DTAP,TDAP,TD (3 - Tdap) [facility] Comment on above: Postponed from 09/14/2018 (Declined at t his time) Start: 02-09-2023 BP CONTROLLED (<130/80) BP CONTROLLED (<130/80) [facility] Start: 02-06-2023 BP CONTROLLED (<130/80) BP CONTROLLED (<130/80) [facility] Start: 01-18-2023 BP CONTROLLED (<130/80) BP CONTROLLED (<130/80) [facility] Start: 01-09-2023 ANNUAL PCP TEAM CHRONIC DISEASE VISIT ANNUAL PCP TEAM CHRONIC DISEASE VISIT [facility] Start: 01-07-2023 Elastase, pancreatic (el-1), fecal; quantitative [facility] Start: 01-07-2023 Protein measurement [facility] Start: 12-04-2022 ANNUAL PCP TEAM CHRONIC DISEASE VISIT ANNUAL PCP TEAM CHRONIC DISEASE VISIT [facility] Start: 11-21-2022 End: 12-05-2022 Influenza virus A and B RNA and SARS-CoV-2 (COVID-19) N gene panel - Respiratory specimen by NICOLE with probe detection [facility] Work Phone: Comment on above: Expected: 11/21/2022, Expires: Start: 10-31-2022 Hemoglobin A1c/Hemoglobin.total in Blood HBA1C [facility] Start: 10-09-2022 Hepatitis C antibody, confirmatory test DILATED RETINAL EXAM [facility] Start: 09-28-2022 Hemoglobin A1c/Hemoglobin.total in Blood HBA1C [facility] Start: 09-12-2022 FECAL OCCULT BLOOD FECAL OCCULT BLOOD [facility] Start: 09-12-2022 Screening for malignant neoplasm of colon Fecal Occult Blood [facility] Start: 09-11-2022 Mammography MAMMOGRAM [facility] Start: 08-31-2022 BP CONTROLLED (<130/80) BP CONTROLLED (<130/80) [facility] Start: 08-24-2022 [facility] Start: 08-14-2022 Hepatitis B screening URINE ALBUMIN:CREATININE RATIO [facility] Start: 08-07-2022 End: 10-07-2022 CBC panel - Blood by Automated count CBC Lab Routine Essential hypertension Expected: 08/07/2022 (Approximate), Expires: 10/07/2022 [facility] Work Phone: Comment on above: Expected: 08/07/2022 (Approximate), Expi res: 10/07/2022 Start: 08-07-2022 End: 10-07-2022 Comprehensive metabolic 2000 panel - Serum or Plasma COMP METABOLIC PANEL Lab Routine Type 2 diabetes mellitus with diabetic neuropathy, without long-term current use of insulin (HCC) Essential hypertension Encounter for long-term current use of medication Expected: 08/07/2022 (Approximate), Expires: 10/07/2022 [facility] Work Phone: Comment on above: Expected: 08/07/2022 (Approximate), Expi res: 10/07/2022 Start: 08-07-2022 End: 10-07-2022 Hemoglobin A1c in Blood HGB A1C Lab Routine Type 2 diabetes mellitus with diabetic neuropathy, without long-term current use of insulin (HCC) Encounter for long-term current use of medication Expected: 08/07/2022 (Approximate), Expires: 10/07/2022 [facility] Work Phone: Comment on above: Expected: 08/07/2022 (Approximate), Expi res: 10/07/2022 Start: 08-07-2022 End: 10-07-2022 Lipid 1996 panel - Serum or Plasma LIPID PANEL BASIC Lab Routine Pure hyperglyceridemia Expected: 08/07/2022 (Approximate), Expires: 10/07/2022 [facility] Work Phone: Comment on above: Expected: 08/07/2022 (Approximate), Expi res: 10/07/2022 Start: 06-22-2022 End: 08-22-2022 Bacteria identified in Urine by Culture URINE CULTURE Microbiology Routine Painful urination Expected: 06/22/2022, Expires: 08/22/2022 [facility] Work Phone: Comment on above: Expected: 06/22/2022, Expires: 2 Start: 06-01-2022 COVID-19 VACCINE (5 - Booster for Moderna series) COVID-19 VACCINE (5 - Booster for Moderna series) [facility] Start: 05-10-2022 Influenza vaccination INFLUENZA (#1) [facility] Start: 03-31-2022 3 comp foot exam completed DIABETIC FOOT EXAM [facility] Start: 03-31-2022 Diabetic foot examination Diabetic Foot Exam [facility] Start: 03-31-2022 SHINGRIX VACCINE (1 of 2) SHINGRIX VACCINE (1 of 2) [facility] Comment on above: Postponed from 2010 (Declined at t his time) Start: 03-31-2022 Urine microalbumin profile DTAP,TDAP,TD (3 - Tdap) [facility] Comment on above: Postponed from 09/14/2018 (Declined at t his time) Start: 03-30-2022 Hepatitis B surface antibody level LDL CHOLESTEROL [facility] Start: 03-27-2022 End: 05-27-2022 SCHEDULE LAB TESTING SCHEDULE LAB TESTING Lab Routine Expected: 03/27/2022, Expires: 05/27/2022 [facility] Work Phone: Comment on above: Expected: 03/27/2022, Expires: Start: 02-12-2022 Hemoglobin A1c/Hemoglobin.total in Blood HBA1C [facility] Start: 12-15-2021 Ova and Parasites Ova and Parasites [facility] Work Phone: Start: 12-12-2021 Colonoscopy COLONOSCOPY [facility] Start: 12-12-2021 COLORECTAL CANCER SCREENING COLORECTAL CANCER SCREENING [facility] Start: 12-02-2021 COVID-19 VACCINE (4 - Booster for Moderna series) COVID-19 VACCINE (4 - Booster for Moderna series) [facility] Start: 2020 Hepatitis B Vaccine (1 of 3 - Risk 3-dose series) Hepatitis B Vaccine (1 of 3 - Risk 3-dose series) [facility] Start: 2020 RSV Vaccine (1 - 1-dose 60+ series) RSV Vaccine (1 - 1-dose 60+ series) [facility] Start: 2020 RSV Vaccine (1 - Risk 60-74 years 1-dose series) RSV Vaccine (1 - Risk 60-74 years 1-dose series) [facility] Start: 09-14-2018 Urine microalbumin profile [facility] Start: 07-10-2017 Medicare Annual Wellness Visit Medicare Annual Wellness Visit [facility] Start: 2015 Influenza vaccination LUNG CANCER SCREENING [facility] Start: 09-09-2011 PNEUMOCOCCAL (2 - PCV) PNEUMOCOCCAL (2 - PCV) [facility] Start: 09-09-2011 Pneumococcal vaccination Pneumococcal Vaccine (2 - PCV) [facility] Start: 2010 Influenza vaccination LUNG CANCER SCREENING [facility] Start: 2010 Screening for malignant neoplasm of lung Lung Cancer Screening [facility] Start: 2010 SHINGRIX VACCINE (1 of 2) SHINGRIX VACCINE (1 of 2) [facility] Start: 2005 COLOGUARD (FIT-DNA) COLOGUARD (FIT-DNA) [facility] Start: [address] COLONOGRAPHY [facility] Start: 2005 Screening for malignant neoplasm of colon [facility] Start: 2005 SIGMOIDOSCOPY SIGMOIDOSCOPY [facility] Start: 1990 Zoledronic acid therapy ALPHA-1 ANTITRYPSIN DEFICIENCY SCREENING [facility] Bacteria identified in Urine by Culture URINE CULTURE Microbiology Routine Lower abdominal pain Recent urinary tract infection 07/05/2022 2:03 PM EDT [facility] Work Phone: Bacteria identified in Urine by Culture URINE CULTURE Microbiology Routine Cystitis Ordered: 03/20/2024 [facility] Work Phone: Comment on above: Ordered: 03/20/2024 Bacteria identified in Urine by Culture URINE CULTURE Microbiology Routine Pain with urination 08/01/2024 2:44 PM EST [facility] Work Phone: Bacteria identified in Urine by Culture BACTERIAL CULTURE, URINE Microbiology Routine Urinary frequency Ordered: 01/12/2025 [facility] Work Phone: Comment on above: Ordered: 01/12/2025 Bacteria identified in Urine by Culture BACTERIAL CULTURE, URINE Microbiology Routine Urinary frequency Ordered: 02/25/2025 [facility] Work Phone: Comment on above: Ordered: 02/25/2025 End: 12-05-2023 CBC panel - Blood by Automated count CBC Lab Routine Essential hypertension Encounter for long-term current use of medication Every 4 months for 4 Occurrences starting 12/05/2022 until 12/05/2023, 1 completed [facility] Work Phone: Comment on above: Every 4 months for 4 Occurrences startin g 12/05/2022 until 12/05/2023, 1 completed End: 04-20-2025 CBC panel - Blood by Automated count COMPLETE BLOOD COUNT Lab Routine Essential hypertension Encounter for long-term current use of medication Every 3 months for 30 Occurrences starting 04/20/2024 until 04/20/2025 [facility] Comment on above: Every 3 months for 30 Occurrences starti ng 04/20/2024 until 04/20/2025 Colonoscopy [facility] Colonoscopy [facility] End: 02-09-2023 COLONOSCOPY DIAGNOSTIC COLONOSCOPY DIAGNOSTIC Endoscopy Routine Rectal bleeding 1 Occurrences starting 02/09/2022 until 02/09/2023 [facility] Work Phone: Comment on above: 1 Occurrences starting 02/09/2022 until 02/09/2023 End: 02-22-2022 COLONOSCOPY DIAGNOSTIC COLONOSCOPY DIAGNOSTIC Endoscopy Routine Rectal bleeding 1 Occurrences starting 02/22/2022 until 02/22/2022 [facility] Work Phone: Comment on above: 1 Occurrences starting 02/22/2022 until 02/22/2022 End: 12-05-2023 Comprehensive metabolic 2000 panel - Serum or Plasma COMP METABOLIC PANEL Lab Routine Essential hypertension Type 2 diabetes mellitus with diabetic neuropathy, without long-term current use of insulin (HCC) Encounter for long-term current use of medication Every 4 months for 4 Occurrences starting 12/05/2022 until 12/05/2023, 1 completed [facility] Work Phone: Comment on above: Every 4 [...] for 30 Occurrences starting 04/20/2024 until 04/20/2025 [facility] Comment on above: Every 3 months for 30 Occurrences starti ng 04/20/2024 until 04/20/2025 COVID & INFLUENZA A/ B & RSV PCR, ROUTINE COVID & INFLUENZA A/B & RSV PCR, ROUTINE Microbiology Routine Sinobronchitis Acute upper respiratory infection 05/19/2024 7:47 PM EDT [facility] Work Phone: End: 12-10-2024 CT Chest for screening WO contrast CT LUNG SCREEN WO IVCON Radiology Routine Tobacco use current 1 Occurrences starting 11/11/2023 until 12/10/2024 [facility] Work Phone: Comment on above: 1 Occurrences starting 11/11/2023 until 12/10/2024 End: 12-24-2024 CT Chest for screening WO contrast CT LUNG SCREEN WO IVCON Radiology Routine Tobacco use current 1 Occurrences starting 11/25/2023 until 12/24/2024 [facility] Work Phone: Comment on above: 1 Occurrences starting 11/25/2023 until 12/24/2024 End: 12-24-2025 CT Chest for screening WO contrast CT LUNG SCREEN WO IVCON Radiology Routine Encounter for screening for lung cancer Tobacco use current 1 Occurrences starting 11/24/2024 until 12/24/2025 [facility] Work Phone: Comment on above: 1 Occurrences starting 11/24/2024 until 12/24/2025 CT Chest WO contrast CT CHEST WO IVCON Radiology Routine Lung nodules 06/23/2024 3:51 PM EDT [facility] Work Phone: End: 11-07-2023 DXA-AXIAL SKELETON DXA-AXIAL SKELETON Radiology Routine Asymptomatic postmenopausal status 1 Occurrences starting 10/08/2022 until 11/07/2023 [facility] Work Phone: Comment on above: 1 Occurrences starting 10/08/2022 until 11/07/2023 End: 02-09-2023 EGD DIAGNOSTIC EGD DIAGNOSTIC Endoscopy Routine Epigastric abdominal pain 1 Occurrences starting 02/09/2022 until 02/09/2023 [facility] Work Phone: Comment on above: 1 Occurrences starting 02/09/2022 until 02/09/2023 End: 02-22-2022 EGD DIAGNOSTIC EGD DIAGNOSTIC Endoscopy Routine Epigastric abdominal pain 1 Occurrences starting 02/22/2022 until 02/22/2022 [facility] Work Phone: Comment on above: 1 Occurrences starting 02/22/2022 until 02/22/2022 End: 07-29-2025 EMG(NEURO/NI) EMG(NEURO/NI) EMG Routine Neuropathy 1 Occurrences starting 07/29/2024 until 07/29/2025 [facility] Comment on above: 1 Occurrences starting 07/29/2024 until 07/29/2025 End: 07-31-2025 EMG(NEURO/NI) EMG(NEURO/NI) EMG Routine Neuropathy 1 Occurrences starting 07/31/2024 until 07/31/2025 [facility] Work Phone: Comment on above: 1 Occurrences starting 07/31/2024 until 07/31/2025 End: 12-05-2023 Hemoglobin A1c in Blood HGB A1C Lab Routine Type 2 diabetes mellitus with diabetic neuropathy, without long-term current use of insulin (HCC) Every 4 months for 4 Occurrences starting 12/05/2022 until 12/05/2023, 1 completed [facility] Work Phone: Comment on above: Every 4 months for 4 Occurrences startin g 12/05/2022 until 12/05/2023, 1 completed End: 04-20-2025 Hemoglobin A1c in Blood HEMOGLOBIN A1C Lab Routine Type 2 diabetes mellitus with hyperglycemia, without long-term current use of insulin (HCC) Encounter for long-term current use of medication Every 3 months for 30 Occurrences starting 04/20/2024 until 04/20/2025 [facility] Work Phone: Comment on above: Every 3 months for 30 Occurrences starti ng 04/20/2024 until 04/20/2025 End: 12-05-2023 Lipid 1996 panel - Serum or Plasma LIPID PANEL BASIC Lab Routine Mixed hyperlipidemia Every 4 months for 4 Occurrences starting 12/05/2022 until 12/05/2023, 1 completed [facility] Work Phone: Comment on above: Every 4 months for 4 Occurrences startin g 12/05/2022 until 12/05/2023, 1 completed End: 04-20-2025 Lipid 1996 panel - Serum or Plasma LIPID PANEL BASIC Lab Routine Mixed hyperlipidemia Encounter for long-term current use of medication Every 3 months for 30 Occurrences starting 04/20/2024 until 04/20/2025 [facility] Comment on above: Every 3 months for 30 Occurrences starti ng 04/20/2024 until 04/20/2025 Liver stiffness by US.transient elastography [facility] End: 01-20-2024 LUNG DIFFUSION CAPACITY (DLCO) LUNG DIFFUSION CAPACITY (DLCO) PFT Routine Stage 2 moderate COPD by GOLD classification (HCC) 1 Occurrences starting 12/21/2022 until 01/20/2024 [facility] Work Phone: Comment on above: 1 Occurrences starting 12/21/2022 until 01/20/2024 End: 04-20-2025 Magnesium [Mass/volume] in Serum or Plasma MAGNESIUM Lab Routine Encounter for long-term current use of medication Every 3 months for 30 Occurrences starting 04/20/2024 until 04/20/2025 [facility] Comment on above: Every 3 months for 30 Occurrences starti ng 04/20/2024 until 04/20/2025 End: 09-06-2023 JAVIER SCREENING JAVIER SCREENING Radiology Routine Encounter for screening mammogram for breast cancer 1 Occurrences starting 08/07/2022 until 09/06/2023 [facility] Work Phone: Comment on above: 1 Occurrences starting 08/07/2022 until 09/06/2023 MR Lumbar spine [facility] End: 09-06-2023 Mri spinal canal lumbar w/o contrast material MRI LUMBAR SPINE WO [facility] Radiology Routine Acute bilateral low back pain with bilateral sciatica Radiculopathy of lumbar region Spinal stenosis of lumbar region with neurogenic claudication 1 Occurrences starting 08/07/2022 until 09/06/2023 [facility] Work Phone: Comment on above: 1 Occurrences starting 08/07/2022 until 09/06/2023 End: 12-04-2024 NITRIC OXIDE, EXHALED NITRIC OXIDE, EXHALED PFT Routine Asthma with COPD (FORM[facility]LY [facility]) 1 Occurrences starting 11/05/2023 until 12/04/2024 [facility] Work Phone: Comment on above: 1 Occurrences starting 11/05/2023 until 12/04/2024 Patient Education [facility] Work Phone: Patient referral [facility] Work Phone: PT PLAN OF CARE CERTIFICATION PT PLAN OF CARE CERTIFICATION Procedures Routine S/P lumbar laminectomy Chronic midline low back pain, unspecified whether sciatica present Spinal stenosis of lumbar region, unspecified whether neurogenic claudication present Gait instability Ordered: 04/10/2022 [facility] Work Phone: Comment on above: Ordered: 04/10/2022 PT PLAN OF CARE CERTIFICATION PT PLAN OF CARE CERTIFICATION Procedures Routine Chronic midline low back pain, unspecified whether sciatica present S/P lumbar laminectomy Gait instability Ordered: 05/08/2022 [facility] Work Phone: Comment on above: Ordered: 05/08/2022 End: 10-08-2023 PVR [facility] Vascular Lab Routine Essential hypertension Pain in both lower extremities Foot pain, bilateral Cigarette smoker Type 2 diabetes mellitus with diabetic neuropathy, without long-term current use of insulin (HCC) Diminished pulses in lower extremity 1 Occurrences starting 10/08/2022 until 10/08/2023 [facility] Work Phone: Comment on above: 1 Occurrences starting 10/08/2022 until 10/08/2023 End: 07-27-2023 Radiologic exam chest 2 views XR CHEST 2V FRONTAL/LAT Radiology Routine Moderate persistent asthma with acute exacerbation 1 Occurrences starting 06/27/2022 until 07/27/2023 [facility] Work Phone: Comment on above: 1 Occurrences starting 06/27/2022 until 07/27/2023 Radionuclide gastric emptying study [facility] End: 01-20-2024 SPIROMETRY BASELINE ONLY SPIROMETRY BASELINE ONLY PFT Routine Stage 2 moderate COPD by GOLD classification (FORMERLY [facility]) 1 Occurrences starting 12/21/2022 until 01/20/2024 [facility] Work Phone: Comment on above: 1 Occurrences starting 12/21/2022 until 01/20/2024 End: 12-04-2024 SPIROMETRY WITH DILATOR IF OBSTRUCTED SPIROMETRY WITH DILATOR IF OBSTRUCTED PFT Routine Asthma with COPD (FORMERLY [facility]) 1 Occurrences starting 11/05/2023 until 12/04/2024 [facility] Work Phone: Comment on above: 1 Occurrences starting 11/05/2023 until 12/04/2024 SURGICAL PATHOLOGY [facility] Work Phone: Comment on above: Release Upon Ordering for 1 Occurrences starting 02/22/2022 Urinalysis complete panel - Urine URINALYSIS, WITH MICROSCOPIC Lab Routine Lower abdominal pain Recent urinary tract infection 07/05/2022 2:03 PM EDT [facility] Work Phone: End: 08-08-2023 Us pelvic nonobstetric image dcmtn limited/f/u US FEMALE PELVIS TRANSABD LTD Radiology Routine Lower abdominal pain 1 Occurrences starting 07/09/2022 until 08/08/2023 [facility] Work Phone: Comment on above: 1 Occurrences starting 07/09/2022 until 08/08/2023 End: 08-08-2023 Us transvaginal US FEMALE PELVIS TRANSVAG Radiology Routine Lower abdominal pain 1 Occurrences starting 07/09/2022 until 08/08/2023 [facility] Work Phone: Comment on above: 1 Occurrences starting 07/09/2022 until 08/08/2023 End: 04-01-2026 XR Ankle - right AP and Lateral XR ANKLE 2V AP/LAT RIGHT Radiology Routine Acute right ankle pain 1 Occurrences starting 03/02/2025 until 04/01/2026 [facility] Comment on above: 1 Occurrences starting 03/02/2025 until 04/01/2026 XR Ankle - right AP and Lateral XR ANKLE 2V AP/LAT RIGHT Radiology Routine Acute right ankle pain 03/02/2025 4:31 PM EDT [facility] End: 03-19-2025 XR Foot - left AP and Lateral and oblique XR FOOT GENERAL 3V AP/LAT/OBL LEFT Radiology Routine Injury of toe on left foot, initial encounter 1 Occurrences starting 02/18/2024 until 03/19/2025 [facility] Work Phone: Comment on above: 1 Occurrences starting 02/18/2024 until 03/19/2025 XR Foot - left AP an d Lateral and oblique XR FOOT GENERAL 3V AP/LAT/OBL LEFT Radiology Routine Injury of toe on left foot, initial encounter 02/18/2024 3:50 PM EDT [facility] End: 04-01-2026 XR Foot - right AP and Lateral and oblique XR FOOT GENERAL 3V AP/LAT/OBL RIGHT Radiology Routine Toe pain, right 1 Occurrences starting 03/02/2025 until 04/01/2026 [facility] Work Phone: Comment on above: 1 Occurrences starting 03/02/2025 until 04/01/2026 XR Foot - right AP a nd Lateral and oblique XR FOOT GENERAL 3V AP/LAT/OBL RIGHT Radiology Routine Toe pain, right 03/02/2025 4:31 PM EDT [facility] Immunizations Immunization Date Immunization Notes Care Provider Fa [facility] 07-23-2023 pneumococcal Conjuga te, unspecified formulation Willam Estrada MD Work Phone: [facility] Work Phone: 07-23-2023 influenza, injectabl e, quadrivalent, contains preservative Willam Estrada MD Work Phone: [facility] 07-23-2023 influenza, injectabl e, quadrivalent, preservative free Dr. Willam Estrada MD Work Phone: [facility] 07-23-2023 pneumococcal (PCV20) vaccine, 20 valent (PREVNAR 20) Willam Estrada MD Work Phone: [facility] 07-23-2023 influenza virus vaccine, unspecified formulation Willam Estrada MD Work Phone: [facility] 08-20-2022 Covid Moderna Bivale nt Booster Dr. Willam Estrada MD Work Phone: [facility] 08-07-2022 influenza, injectabl e, quadrivalent, contains preservative Mona Corrigan MD Work Phone: [facility] 08-07-2022 influenza, injectabl e, quadrivalent, preservative free Dr. Willam Estrada MD Work Phone: [facility] 08-07-2022 influenza virus vaccine, unspecified formulation Willam Estrada MD Work Phone: [facility] 04-06-2022 Covid (Moderna) Dr. Willam todd MD Work Phone: [facility] 08-04-2021 Covid (Moderna) Dr. Willam todd MD Work Phone: [facility] 08-04-2021 Influenza, injectabl e, Madin Fabiola Canine Kidney, preservative free, quadrivalent Willam Estrada MD Work Phone: [facility] 08-04-2021 influenza, seasonal, injectable Willam Estrada MD Work Phone: [facility] Work Phone: 12-15-2020 COVID-19 vaccine, fu ll dose (MODERNA) Willam Estrada MD Work Phone: [facility] 11-16-2020 COVID-19 vaccine, fu ll dose (MODERNA) Willam Estrada MD Work Phone: [facility] 10-13-2019 influenza, injectabl e, quadrivalent, contains preservative Willam Estrada MD Work Phone: [facility] Work Phone: 10-13-2019 influenza, injectabl e, quadrivalent, preservative free Dr. Willam Estrada MD Work Phone: [facility] 10-13-2019 zoster vaccine, recombinant, adjuvanted, (SHINGRIX, PF,) 50 mcg/0.5 mL injection Xr [place] Work Phone: [facility] 05-30-2018 influenza, injectabl e, quadrivalent, contains preservative Willam Estrada MD Work Phone: [facility] 05-30-2018 influenza, injectabl e, quadrivalent, preservative free Dr. Willam Estrada MD Work Phone: [facility] 05-30-2016 influenza, injectabl e, quadrivalent, contains preservative Willam Estrada MD Work Phone: [facility] 05-30-2016 influenza, injectabl e, quadrivalent, preservative free Dr. Willam Estrada MD Work Phone: [facility] 07-22-2015 influenza, injectabl e, quadrivalent, preservative free Dr. Willam Estrada Work Phone: [facility] 07-22-2015 influenza, seasonal, injectable Dr. Willam Estrada Work Phone: [facility] 07-22-2015 influenza, seasonal, injectable, preservative free Willam Estrada MD Work Phone: [facility] 06-14-2014 influenza, injectabl e, quadrivalent, preservative free Dr. Willam Estrada Work Phone: [facility] 06-14-2014 influenza, seasonal, injectable Willam Estrada MD Work Phone: [facility] 06-14-2014 influenza, seasonal, injectable, preservative free Dr. Willam Estrada MD Work Phone: [facility] 06-19-2013 influenza virus vaccine, unspecified formulation Willam Estrada MD Work Phone: [facility] 07-14-2012 influenza virus vaccine, unspecified formulation Willam Estrada MD Work Phone: [facility] 09-09-2010 pneumococcal polysaccharide vaccine, 23 valent Willam Estrada MD Work Phone: [facility] 09-09-[address] Brandy Estrada Work Phone: [facility] Work Phone: 09-09-2010 pneumococcal vaccine , unspecified formulation [facility] 03-22-2010 pneumococcal polysaccharide vaccine, 23 valent Willam Estrada MD Work Phone: [facility] 09-14-2008 tetanus and diphther ia toxoids, not adsorbed, for adult use Willam Estrada MD Work Phone: [facility] 10-11-1998 diphtheria and tetan us toxoids, adsorbed for pediatric use Willam Estrada MD Work Phone: [facility] Work Phone: 10-11-1998 tetanus immune globulin Willam Estrada MD Work Phone: [facility] Work Phone: NEGATED: Highlighted row has not occurred!08-18-2019 influenza, injectable, quadrivalent, preservative free Willam Estrada MD Work Phone: [facility] Comment on above: Deferred: Patient Re fused Payers Date Payer Category Payer Self-pay [id number] 2017 Medicare [id number] 2017 Medicaid MEDICAID [facility] MEDICAID [id number] 2017-Present [phone] [address] [place] [address] Medicaid [id number] 2017 Medicaid [id number] 2017 Medicare MEDICARE MEDICAR E A AND B [id number] 2017-Present [phone] [address] [address] [place] [address] Medicare [id number] 2017 Medicare [id number] 2017 Medicaid [id number] 2017 Medicare [id number] 2014 Unknown [id number] Unknown [id number] 2.16.840.1.508892.3.579.2.462 Unknown [id number] 2.16.840.1.629602.3.579.2.462 Unknown [id number] 2.16.840.1.195047.3.579.2.462 Unknown [id number] 2.16.840.1.440293.3.579.2.462 Unknown [id number] 2.16.840.1.498142.3.579.2.462 Unknown [id number] 2.16.840.1.795529.3.579.2.462 Unknown [id number] 2.16.840.1.044378.3.579.2.462 Unknown [id number] 2.16.840.1.074656.3.579.2.462 Unknown [id number] 2.16.840.1.143500.3.579.2.462 Unknown [id number] 2.16.840.1.418790.3.579.2.462 Unknown [id number] 2.16.840.1.125220.3.579.2.462 Unknown [id number] 2.16.840.1.477463.3.579.2.462 Unknown [id number] 2.16.840.1.660806.3.579.2.462 Unknown [id number] 2.16.840.1.306954.3.579.2.462 Unknown [id number] 2.16.840.1.993414.3.579.2.462 Unknown [id number] 2.16.840.1.816339.3.579.2.462 Unknown [id number] 2.16.840.1.969516.3.579.2.462 Unknown [id number] 2.16.840.1.742641.3.579.2.462 Unknown [id number] 2.16.840.1.750228.3.579.2.462 Unknown [id number] 2.16.840.1.088610.3.579.2.462 Unknown [id number] 2.16840.1.643337.3.579.2.462 Unknown [id number] 2.840.1.238967.3.579.2.462 Unknown [id number] 2.840.1.753038.3.579.2.462 Unknown [id number] 2.840.1.434842.3.579.2.462 Unknown [id number] 2.840.1.207692.3.579.2.462 Unknown [id number] 2.840.1.233034.3.579.2.462 Unknown [id number] 2.840.1.053704.3.579.2.462 Unknown [id number] 2.840.1.142112.3.579.2.462 Unknown [id number] 2.840.1.050806.3.579.2.462 Unknown [id number] 2.840.1.824870.3.579.2.462 Unknown [id number] 2.16840.1.402231.3.579.2.462 Unknown [id number] 2.16.840.1.659216.3.579.2.462 Unknown [id number] 2.16840.1.082011.3.579.2.462 Unknown [id number] 2.840.1.362533.3.579.2.462 Unknown [id number] 2..840.1.054805.3.579.2.462 Unknown [id number] 2.16.840.1.109225.3.579.2.462 Unknown [id number] 2.16.840.1.332390.3.579.2.462 Unknown [id number] 2.840.1.631852.3.579.2.462 Social History Date Type Detail Facility Start: 11-10-2021 End: 05-07-2024 Tobacco smoking status NHIS Smokes tobacco daily [facility] History of tobacco use Cigarette Smoker C [facility] Start: 12-04-2021 End: 03-02-2025 Alcohol intake Current non-drinker of alcohol (finding) [facility] Start: 05-15-2020 End: 08-25-2022 History SDOH Alcohol Frequency 1 [facility] Start: 05-15-2020 End: 08-25-2022 History SDOH Social Connections Phone 2 [facility] Start: 05-15-2020 End: 08-25-2022 History SDOH Social Connections Living 5 [facility] Start: 05-15-2020 End: 08-25-2022 History SDOH Physical Activity DPW 0 [facility] Start: 05-15-2020 End: 08-25-2022 History SDOH Stress 4 [facility] Start: 05-15-2020 End: 08-25-2022 History SDOH Financial 3 [facility] Start: 05-14-2020 Education 12 [facility] Start: 1960 Sex Assigned At Not on file [facility] Start: 07-18-2020 End: 08-07-2022 Exposure to SARS-CoV-2 (event) Not sure [facility] Start: 12-14-2021 End: 11-26-2023 Tobacco smoking status NEIS Unknown if ever smoked [facility] Start: 08-21-2021 None [facility] Start: 08-21-2021 Alone [facility] Start: 04-25-2020 Cigarettes [facility] Start: 1960 Sex Assigned At Female [facility] Start: 03-30-2022 End: 04-09-2022 Exposure to SARS-CoV-2 (event) Unable to assess [facility] Work Phone: Start: 11-10-2021 End: 01-24-2023 Cigarettes smoked current (pack per day) - Reported 1 [facility] Start: 11-10-2021 End: 05-07-2024 Tobacco use and exposure Smokeless tobacco non-user [facility] Start: 08-07-2022 Tobacco Comment Working on smoking cessation [facility] Start: 10-08-2022 Tobacco Comment Working on smoking cessation. Trying every day to quit but not happening yet. [facility] Start: 08-25-2022 End: 01-24-2023 Social connection and isolation panel [facility] Do you belong to any clubs or organizations such as denominational groups, unions, fraternal or athletic groups, or school groups? No [facility] Are you now , , , , never or living with a partner? [facility] How often to you hav e a drink containing alcohol? Never [facility] How many standard dr inks containing alcohol do you have on a typical day? Patient does not drink [facility] Do you feel stress - tense, restless, nervous, or anxious, or unable to sleep at night because your mind is troubled all the time - these days [OSQ] Not at all [facility] (I/We) worried wheth er (my/our) food would run out before (I/we) got money to buy more. Never true [facility] Start: 04-03-2023 Tobacco Comment Working on smoking cessation. Trying every day to quit but not happening yet. Still working--1PPD (April 03, 2023) [facility] Start: 02-06-2022 Gender identity Identifies as female gender (finding) [facility] Start: 02-06-2022 Sexual orientation Heterosexual (finding) [facility] How hard is it for y ou to pay for the very basics like food, housing, medical care, and heating Somewhat hard [facility] Do you feel stress - tense, restless, nervous, or anxious, or unable to sleep at night because your mind is troubled all the time - these days [OSQ] Rather much [facility] (I/We) worried wheth er (my/our) food would run out before (I/we) got money to buy more. Sometimes true [facility] Start: 04-20-2024 Tobacco Comment Working on smoking cessation. Trying every day to quit and down to 8-9 cigarettes daily and quit smoking in the house [facility] Start: 07-30-2017 Tobacco Comment 1 ppd [facility] Start: 11-25-2024 End: 12-24-2024 Sex Female (finding) [facility] Medical Equipment Procedure Code Equipment Code Equipment Original Text Equipment Identifier Dates [id number], [id number], [id number], [id number], [id number], [id number], [id number] Start: 06-23-2019 End: 11-18-2024 Comment on above: [...] original. Last admission/ED visit : ED visit [place]: 05/08/24 Formatting of this n ote might [...] Assessment Result Facility 08-05-2024 Functional status Ambulates [facility] Work Phone: 04-30-2020 Are you deaf, or do you have serious difficulty hearing No 04/30/2020 1:42 PM EDT Sabino Somers, RN No [facility] 04-30-2020 Are you blind, or do you have serious difficulty seeing, even when wearing glasses No 04/30/2020 1:42 PM EDT Sabino Somers, RN No [facility] 04-30-2020 Do you have serious difficulty walking or climbing stairs No 04/30/2020 1:42 PM EDT Sabino Somers, HOWARD No [facility] 04-30-2020 Do you have difficul ty dressing or bathing No 04/30/2020 1:42 PM EDT Sabino Somers, RN No [facility] 04-30-2020 Because of a physica l, mental, or emotional condition, do you have difficulty doing errands alone such as visiting a physician's office or shopping No 04/30/2020 1:42 PM EDT Sabino Somers, HOWARD No [facility] Mental Status Date Assessment Result Facility 08-09-2024 Cognitive function Level Of Cons ciousness Awake;Alert;Appropriate;Fol lows Commands [facility] Work Phone: 08-05-2024 Cognitive function Voice/Name [facility] Work Phone: 11-28-2023 Cognitive function Voice/Name [facility] Work Phone: 09-20-2023 Cognitive function Level Of Cons ciousness Awake;Alert;Appropriate;Fol lows Commands [facility] Work Phone: 07-01-2023 Cognitive function Touch/Shaking [facility] Work Phone: 06-27-2023 Cognitive function Level Of Cons ciousness Awake;Alert;Appropriate;Fol lows Commands [facility] Work Phone: 08-24-2022 Cognitive function Level Of Cons ciousness Awake;Alert;Appropriate;Fol lows Commands [facility] Work Phone: 04-30-2020 Because of a physica l, mental, or emotional condition, do you have serious difficulty concentrating, remembering, or making decisions No 04/30/2020 1:42 PM EDT Sabino Somers, HOWARD No [facility] Clinical Notes 04-27-2020 to 03-08-2025 Telephone Encounter [...] Goddard LPN March 08, 2025 3:57 PM [facility] 03-08-2025 Miscellaneous Notes Prescription Refill Information The [...] 2025 3:57 PM documented in this encounter [facility] 03-02-2025 History of Presen t illness Narrative [...] PATIENT PRESENTS WITH AN IMPLANTABLE OR ATTACHED HYDROELECTRIC PLANT TECHNICIAN: No RADIOLOGY DEPARTMENT: General X-ray: Exam(s) Completed: Lower Extremity X-Ray(s): Ankle, Right and Foot, Right PERIPHERAL IV DATA: Not applicable SIGNED BY: RT Davon(R) March 02, 2025 4:18 PM documented in this encounter [facility] 03-02-2025 Note [facility] 03-02-2025 Note [facility] 03-02-2025 History of Presen t illness Narrative Images from the original note were not included. [facility] [place] DEPARTMENT OF VASCULAR SURGERY OUTPATIENT VISIT DATE March 02, 2025 OUTPATIENT VISIT TYPE CONSULTATION SERVICE DATE: 03/02/2025 SERVICE TIME: 3:25 PM PRIMARY CARE PHYSICIAN: Willam Estrada MD REFERRING PROVIDER: Leila Rubi [address] [facility] [address] Consult requested for an opinion regarding the [...] rhinitis, cause unspecified 02/10/2007 Anxiety Arthritis Asthma ([facility]LY [facility]) 02/10/2007 Depression Psychiatrist managing (Dr. Bedolla) DM type 2 (diabetes mellitus, type 2) (FORM[facility]LY [facility]) Essential hypertension 05/23/2006 Hemorrhage of gastrointestinal tract, [...] 12/13/2011 Colonoscopy [facility] 10 [facility] SPE[facility] VARICIES INJ 02/22/2022 ESOPHAGOGASTRODUODENOSCOPY TRANSORAL DIAGNOSTIC 02/09/2016 EGD INCISE FINGER TENDON SHEATH Right 08/10/2021 Right ring trigger finger release JOINT REPLACEMENT HX LAPS ABD PRTM&OMENTUM DX W/WO SPEC BR/WA SPX Laparoscopy LAPS SURG CHOLECYSTECTOMY W/CHOLANGIOGRAPHY 10/07/2006 LIG/TRNSXJ FLP TUBE ABDL/VAG APPR UNI/BI Tubal ligation PAST SURGICAL HISTORY OF 06/22/2010 right knee arthroscopy- by Dr Dawson ([facility]) PAST SURGICAL HISTORY OF 04/27/2020 low back surgery at [facility];s/p L4 laminectomy, decompression of L4-5 canal stenosis [...] Cervical Cancer Mother Asthma Mother Heart Father NE x 2 Cancer Father Lung, metastatic to [...] without contrast- no significant aneurysm CT from [facility]- no evidence of AAA Echo- normal [...] TIME: 3:25 PM documented in this encounter [facility] 02-27-2025 Telephone encounter Note Patient given results and verbalized understanding of instructions given. Frieda Blake MA [facility] 02-27-2025 Miscellaneous Notes Patient given results and verbalized understanding of instructions given. Frieda Blake MA Left message for patient to return call. Frieda Blake MA Please call and let patient know that the urine culture did not grow any bacteria. If symptoms are persistent please follow-up with primary care documented in this encounter [facility] 02-27-2025 Telephone encounter Note Left message for patient to return call. Frieda Blake MA [facility] 02-27-2025 Telephone encounter Note Please call and let patient know that the urine culture did not grow any bacteria. If symptoms are persistent please follow-up with primary care [facility] Work Phone: 02-25-2025 Instructions Martha Diop APRN.HEIDY [...] to start antibiotics. documented in this encounter [facility] 02-25-2025 Note [facility] 02-25-2025 History of Presen t illness Narrative [...] rhinitis, cause unspecified 02/10/2007 Anxiety Arthritis Asthma ([facility]) 02/10/2007 Depression Psychiatrist managing (Dr. Bedolla) DM type 2 (diabetes mellitus, type 2) ([facility]) Essential hypertension 05/23/2006 Hemorrhage of gastrointestinal tract, [...] 12/13/2011 Colonoscopy repeat 10 years EGD W/O [facility] SPEC VARICIES INJ 02/22/2022 ESOPHAGOGASTRODUODENOSCOPY TRANSORAL DIAGNOSTIC 02/09/2016 EGD INCISE FINGER TENDON SHEATH Right 08/10/2021 Right ring trigger finger release JOINT REPLACEMENT HX LAPS ABD PRTM&OMENTUM DX W/WO SPEC BR/WA SPX Laparoscopy LAPS SURG CHOLECYSTECTOMY W/CHOLANGIOGRAPHY 10/07/2006 LIG/TRNSXJ FLP TUBE ABDL/VAG APPR UNI/BI Tubal ligation PAST SURGICAL HISTORY OF 06/22/2010 right knee arthroscopy- by Dr Dawson ([facility]) PAST SURGICAL HISTORY OF 04/27/2020 low [...] Cervical Cancer Mother Asthma Mother Heart Father NE x 2 Cancer Father Lung, metastatic to [...] Discussed expected course of illness Martha Diop APRN.HOG FEEDER and Recording using Medication Review software for draft documentation of the visit was discussed with the patient/authorized new accounts representative; all questions welcomed and answered. Patient/authorized new accounts representative agreed to proceed Disposition The patient was discharged. Procedures documented in this encounter [facility] 01-12-2025 Note [facility] 01-12-2025 History of Presen t illness Narrative This note was created using RegistryLove. Subjective Garland De Santiago is a 64 [...] Rufus Ohara PA-C documented in this encounter [facility] 12-11-2024 Note [facility] 12-11-2024 History of Presen t illness Narrative [...] 2024 2:09 PM documented in this encounter [facility] 12-09-2024 Note [facility] 12-09-2024 History of Presen t illness Narrative [...] 2024 9:02 AM documented in this encounter [facility] 12-04-2024 Note [facility] 12-04-2024 History of Presen t illness Narrative [...] 2024 7:10 AM documented in this encounter [facility] 11-30-2024 Telephone encounter Note Prescription Refill Information [...] Briseno LPN November 30, 2024 12:53 PM [facility] 11-30-2024 Miscellaneous Notes Prescription Refill Information The [...] 2024 12:53 PM documented in this encounter [facility] 11-26-2024 Telephone encounter Note Fax rec'd from [employer] for DME supplies for true metrix glucose testing strips. This was completed and faxed back recent office notes as requested. [facility] 11-26-2024 Miscellaneous Notes Fax rec'd from [employer] for DME supplies for true metrix glucose testing strips. This was completed and faxed back recent office notes as requested. documented in this encounter [facility] 11-25-2024 Note [facility] 11-25-2024 History of Presen t illness Narrative [...] DM type 2 (diabetes mellitus, type 2) ([facility]) Essential hypertension 05/23/2006 Hemorrhage of gastrointestinal tract, [...] Cervical Cancer Mother Asthma Mother Heart Father NE x 2 Cancer Father Lung, metastatic to [...] 06/22/2010 right knee arthroscopy- by Dr Dawson ([facility]) PAST SURGICAL HISTORY OF 04/27/2020 low back surgery at [facility];s/p L4 laminectomy, decompression of L4-5 canal stenosis [...] (Final result) Narrative: [facility] [address] [place] [address] Test Date: 2023-11-11 Pat Name: GARLAND DE SANTIAGO Department: Room: Gender: Female Accounts Receivable Coordinator: : 1960 Requested By: Order Number: [id number] Reading MD: Mona Corrigan MD Interpretive Statements Current ATS/ERS acceptability and repeatability standards for spirometry met. Start of test and EOFE criteria met. Medications and Allergies were reviewed for possible drug interactions per policy. No contraindications or sensitivities were noted. Meds taken: Albuterol 15 minutes before testing. IMPRESSION: Spirometry is normal. Electronically Signed On 11-11-2023 16:27:40 EST by Mona Corrigan MD ID: [id number] Name: GARLAND DE SANTIAGO Race: White Ht: [...] 5.05 FEF50/FIF50 0.40 90-100 FIVC (L) 2.82 KWG89-77 (L/sec) 1.13 1.07 2.16 3.66 52 Time [...] Leila Rubi PA-C documented in this encounter [facility] 11-24-2024 Instructions Indigo Nichols PA-C - 11/24/2024 2:06 PM EDT Qutenza or other patches for pain. If the pain gets worse, let me know. We can either go up on the gabapentin or start a new medication called lyrica Follow up as needed documented in this encounter [facility] 11-24-2024 Note HNO ID: [id number] Author: JOSEPH CORRIGAN LPN Service: ? Author Type: LICENSED NURSE Type: Progress Notes Filed: 11/24/2024 14:31 Note Text: [facility] 11-24-2024 History of Presen t illness Narrative Images from the original note were not included. [facility] Name: Garland De Santiago [...] walking on glass and also has chronic bwjp-mhe-pczsbzq feeling in her feet. Similar symptoms in [...] Recurrent Major Depressive Disorder, in Remission ([facility]) Yary (Obstructive Sleep Apnea) Anxiety Lumbar Spinal Stenosis Nicotine use disorder, F17.2 S/P Lumbar Laminectomy Chronic Midline Low Back Pain Gait Instability Severe Persistent Asthma Headache, Unspecified Headache Type Congestion of Respiratory Tract PAST MEDICAL HISTORY Diagnosis Date Allergic rhinitis, cause unspecified 02/10/2007 Anxiety Arthritis Asthma 02/10/2007 Depression Psychiatrist managing (Dr. Bedolla) DM type 2 (diabetes mellitus, type 2) ([facility]) Essential hypertension 05/23/2006 Hemorrhage of gastrointestinal tract, [...] Cervical Cancer Mother Asthma Mother Heart Father NE x 2 Cancer Father Lung, metastatic to [...] 06/22/2010 right knee arthroscopy- by Dr Dawson ([facility]) PAST SURGICAL HISTORY OF 04/27/2020 low back surgery at [facility];s/p L4 laminectomy, decompression of L4-5 canal stenosis [...] and assume there are 5 lumbar-type vertebrae. 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OLIVE Transcribe Date/Time: Sep 27 2022 5:51P Dictated by : RICHARD KAPOOR MD This examination was interpreted and the report reviewed and electronically signed by: RICHARD KAPOOR MD on Sep 27 2022 6:01PM EST This note was dictated using GKN - GloboK[employer] speech recognition software and may contain some [...] which included preparing to see the patient, lzwu-kx-lqan patient care, completing clinical documentation, obtaining and/or reviewing separately obtained history, performing a medically appropriate examination, counseling and educating the patient/family/caregiver, and ordering medications, tests, or procedures. documented in this encounter [facility] 11-24-2024 Note [facility] 11-23-2024 History of Presen t illness Narrative [...] PATIENT PRESENTS WITH AN IMPLANTABLE OR ATTACHED HYDROELECTRIC PLANT TECHNICIAN: No RADIOLOGY DEPARTMENT: CT; Exam(s) Completed: Lung Screening PERIPHERAL IV DATA: Not applicable SIGNED BY: RT Edwin(R) November 23, 2024 3:55 PM documented in this encounter [facility] 11-23-2024 Note [facility] 11-19-2024 Telephone encounter Note Images from the [...] that you do not live in a ferry terminal agent care (LTC) facility. We cannot pay for drugs under Medicare Part D if they are covered under Medicare Part A or B. We did not decide whether ALBUTEROL SULFATE Nebu Soln is medically necessary. We made our decision only on the fact that we cannot pay for the drug under Medicare Part D. For more information, talk to your prescriber or call [phone]. Payer: [facility] Electronic appeal: Not supported View History [...] to its destination. To be filled at: [facility] [address] - [place] [address] [address] [facility] - [phone] [facility] 11-19-2024 Miscellaneous Notes Images from the original [...] that you do not live in a longterm care (LTC) facility. We cannot pay for drugs under Medicare Part D if they are covered under Medicare Part A or B. We did not decide whether ALBUTEROL SULFATE Nebu Soln is medically necessary. We made our decision only on the fact that we cannot pay for the drug under Medicare Part D. For more information, talk to your prescriber or call [phone]. Payer: [facility] Electronic appeal: Not supported View History Notes [...] to its destination. To be filled at: [facility] [address] - [place] [address] - [address] [facility] - [phone] documented in this encounter [facility] 11-18-2024 Instructions Willam Estrada MD - 11/18/2024 5:28 PM EDT - Refill your prescriptions at [facility], except for your test strips and nebulizer solutions, which should be refilled at [facility]. - Contact your insurance company to clarify [...] in 4 months. documented in this encounter [facility] 11-18-2024 Note [facility] 11-18-2024 History of Presen t illness Narrative This note was created using Snapwireriter. Subjective Garland De Santiago is a 64 [...] and amlodipine 5 mg BID by her alumni relations officer, Dr. Cruz. However, she has experienced significant [...] DM type 2 (diabetes mellitus, type 2) ([facility]) Essential hypertension 05/23/2006 Hemorrhage of gastrointestinal tract, [...] - Alprazolam prescription refilled and sent to [facility]. - Continue current management. Willam Estrada MD documented in this encounter [facility] 11-11-2024 Procedure note [facility] 10-30-2024 Evaluation note Diagnosis Onset Date Resolution Hypertension chronic October 4:01pm Degenerative disc disease, lumbar acute November 16, 2024 3:32pm Degenerative spondylolisthesis noneactive November 16 3:32pm Cervical myelopathy acute December 24, 2024 2:06pm Degenerative disc disease, lumbar acute December 24, 2024 2:06pm Lumbar stenosis with neurogenic claudication acute December 242024 2:06pm [facility] Work Phone: [phone] Telephone encounter Note* Telephone Encounter - Mirlande Amin LPN - 09/14/2024 1:54 PM EST Duplicate, Lisinopril refilled 09/14/2024. Mirlande Amin LPN [facility]01-06-2025 Miscellaneous Notes* Telephone Encounter - Mirlande Amin LPN - 09/14/2024 1:54 PM EST Duplicate, Lisinopril refilled 09/14/2024. Mirlande Amin LPN [facility] Telephone encounter Note * Telephone Encounter - [...] Please advise. Thank you. Mirlande Amin LPN. [facility]01-06-2025 Miscellaneous Notes* Telephone Encounter - Mirlande Amin [...] you. Mirlande Amin LPN. [facility]25 Telephone encounter Note * Telephone Encounter - [...] Hernandez RN September 11, 2024 10:40 AM [facility]01-03-2025 Miscellaneous Notes* Telephone Encounter - Ashley Hernandez [...] 11, 2024 10:40 AM [facility]12[facility] Evaluation note* Diagnosis Onset Date Resolution Status Admit Date Cervical myelopathy acute Decem 2023 3:32pm Hypertension chronic October 4:01pm Degenerative disc disease, lumbar acute November 16, 2024 3:32pm Degenerative spondylolisthesis nonea ctive November 16, 2024 3:32pm [facility] Work Phone: [phone] [facility] History of Present illness Narrative* Kati Grant [...] 25, 2024 12:38 PM documented [facility]12-[facility]-2024 [facility]12-09-2024 History of Present illness Narrative* Kati Grant LSW - 08/17/2024 3:28 PM EST Value Based Social Work Progress Note Provider Action / FYI PCP Action none Date of Service: 08/17/2024 Patient identified by name/: Yes- via Telephone Referral Source: Referral Patient Outreach: Follow Up and call to patient re referral to [facility] for resources Mode of Outreach: Phone Call Response Time: Unable to reach (Final Attempt) Left message by: Voicemail BOLIVAR Doan August 17, 2024 3:29 PM documented in this encounterL[facility]12-[facility]-2024 [facility] History of Present illness Narrative* Alyssa Hathaway RN - 08/14/2024 2:58 PM EST Transitional Care Management (TCM) Follow-Up Note PCP Update / Actionable Items N/A - No specialty updates needed Patient Source: Ypa-cv-Idikqxs (OON) Discharge Outreach Summary: Pt was seen [...] any questions or concerns. Patient discharged from [facility]. Discharge date: 08/05 [facility] Admitted for: urinary urgency , pneumonia [...] 14, 2024 3:03 PM [facility] in [facility]12[facility]04-[facility] History of Present illness Narrative* Deanna Pagan, SUPPLY CHAIN PROGRAM MANAGER.HOG FEEDER - 08/12/2024 4:19 PM EST CC: Patient presents with: ER F/U: [facility] 08/02/24-Pneumonia & Hypotension HPI Garland De Santiago is a 64 year old female who presents today for above. She was admitted to [facility] 08/02 to 08/05 for hypotension secondary to dehydration and GRACIELA due to medications. Initially thought to be due to urosepsis however cultures came back negative. HCTZ was discontinued and Lisinopril doselowered from 40 to 20 mg a day. She returned to [facility] ER that same day she was discharged with weakness, fever and SOB. CTA revealed multifocal pneumonia, negative for PE. She was discharged home on Levaquin. She presented again to [facility] ER on 08/09 with chest tightness and leg pain. Repeat CT showed worsening bilateral pneumonia and new finding of bilateral pleural effusions. She completed the courseof Levaquin from previous ER visit, discharged home this time on doxycycline and cefuroxime. Steroids recommended but she declined to side effects including hyperglycemia. She was evaluated by adjunct instructor yesterday. Cefuroxime was discontinued due to itching and course of doxycycline was extendedto two weeks. Labs ordered and possible need for bronchoscopy was discussed. Patient's main concern today is elevated blood pressures since discharged on 08/05. She is checkingat home with average 140's-150's/80's. BNP ordered by adjunct instructor was slightly elevated. Patient denies history of CHF. She sees [facility] and Lasix was discontinued by alumni relations officer months ago. Denies chest pain, headaches, palpitations, worsening SOB, edema, PND, orthopnea, rapid weight gain. Review of Systems See HPI PAST MEDICAL HISTORY Diagnosis Date Allergic rhinitis, cause unspecified 02/10/2007 Anxiety Arthritis Asthma 02/10/2007 Depression Psychiatrist managing (Dr. Bedolla) DM type 2 (diabetes mellitus, type 2) ([facility]) Essential hypertension 05/23/2006 Hemorrhage of gastrointestinal tract, [...] 12/13/2011 Colonoscopy repeat 10 years EGD W/O [facility] SPEC VARICIES INJ 02/22/2022 ESOPHAGOGASTRODUODENOSCOPY TRANSORAL DIAGNOSTIC 02/09/2016 EGD INCISE FINGER TENDON SHEATH Right 08/10/2021 Right ring trigger finger release JOINT REPLACEMENT HX LAPS ABD PRTM&OMENTUM DX W/WO SPEC BR/WA SPX Laparoscopy LAPS SURG CHOLECYSTECTOMY W/CHOLANGIOGRAPHY 10/07/2006 LIG/TRNSXJ FLP TUBE ABDL/VAG APPR UNI/BI Tubal ligation PAST SURGICAL HISTORY OF 06/22/2010 right knee arthroscopy- by Dr Dawson ([facility]) PAST SURGICAL HISTORY OF 04/27/2020 low back surgery at [facility];s/p L4 laminectomy, decompression of L4-5 canal stenosis [...] patch. (Patient not taking: Reported on 08/01/2024) tjlvqx-vhqikgco-ciwmyab (CREON 24) 24,000-76,000 -120,000 unit delayed release [...] Cervical Cancer Mother Asthma Mother Heart Father NE x 2 Cancer Father Lung, metastatic to [...] have reviewed the patient s records from [facility] including diagnostic testing performed, their discharge [...] Resolved on most recent labs done at [facility] ER 08/09 3. Elevated brain natriuretic [...] Patient agreeable to treatment plan. Deanna Pagan APRN.HOG FEEDER documented in this encounterLicking [facility]12-03-2024 Instructions* Patient Instructions* Mona Corrigan MD - 08/11/2024 3:17 PM EST Two week course of Doxycycline Monitor glucose levels Stop Cefuroxime documented in this encounterLicking [facility]12-03-2024 History of Present illness Narrative* Mona Corrigan MD - 08/11/2024 2:45 PM EST Images from the original note were not included. . [facility] Note Patient name: Garland De Santiago PCP: Willam Estrada MD CC: Persistent PNA HPI: Garland De Santiago 64 year old female current 36 pack year smoker with PMH significant for allergies, asthma, DM, HTN, YARY non-compliant with BiPAP. She presents today with complaints of persistent PNA. She was hospitalized at [facility] 08/02/24 for possible urosepsis. Presented with [...] 1 tablet by mouth daily with breakfast. aiawfp-phnexkgi-sgntimu (CREON 24) 24,000-76,000 -120,000 unit delayed release [...] Cervical Cancer Mother Asthma Mother Heart Father NE x 2 Cancer Father Lung, metastatic to [...] 12/13/2011 Colonoscopy repeat 10 years EGD W/O [facility] SPEC VARICIES INJ 02/22/2022 ESOPHAGOGASTRODUODENOSCOPY TRANSORAL DIAGNOSTIC 02/09/2016 EGD INCISE FINGER TENDON SHEATH Right 08/10/2021 Right ring trigger finger release JOINT REPLACEMENT HX LAPS ABD PRTM&OMENTUM DX W/WO SPEC BR/WA SPX Laparoscopy LAPS SURG CHOLECYSTECTOMY W/CHOLANGIOGRAPHY 10/07/2006 LIG/TRNSXJ FLP TUBE ABDL/VAG APPR UNI/BI Tubal ligation PAST SURGICAL HISTORY OF 06/22/2010 right knee arthroscopy- by Dr Dawson ([facility]) PAST SURGICAL HISTORY OF 04/27/2020 low back surgery at [facility];s/p L4 laminectomy, decompression of L4-5 canal stenosis [...] -Cessation is paramount Mona Corrigan MD [facility] documented in this encounterLicking [facility]12-03-2024 [facility] History of Present illness Narrative* Centrackio, Kati, ADVERTISING MATERIAL DISTRIBUTOR - 08/10/2024 4:08 PM EST Value Based Social Work Progress Note Provider Action / FYI PCP Action none Date of Service: 08/10/2024 Patient identified by name/: Yes- via Telephone Referral Source: Referral Patient Outreach: Follow Up Mode of Outreach: Phone Call Response Time: Unable to reach (2nd Attempt) Left message by: Voicemail BOLIVAR Doan August 10, 2024 4:09 PM documented in this encounterLicking [facility] Hospital12-02-2024 Telephone encounter Note * Telephone Encounter - Deena Flynn LPN - 08/10/2024 11:40 AM EST Patient called in and states she has been in the hospital several times and now has pneumonia and pleural effusion. She was told to get an appt with pulmonary [facility]. Transferred patient to schedulers to get an appt. Deena Flynn LPN [facility]12-02-2024 Miscellaneous Notes* Telephone Encounter - Deena Flynn LPN - 08/10/2024 11:40 AM EST Patient called in and states she has been in the hospital several times and now has pneumonia and pleural effusion. She was told to get an appt with pulmonary [facility]ON[facility]. Transferred patient to schedulers to get an appt. Deena Flynn LPN documented in this encounterLicking [facility] Hospital11-29-2024 [facility] History of Present illness Narrative* Alyssa Hathaway RN - 08/07/2024 2:41 PM EST Transition Care Management (TCM) Initial Outreach PCP Update / Actionable Items HRTIC TCM Home Visit Referral Source of Stratification: TCM HUB Hospital Admission Status: Discharged Readmission Risk Score: n/a Patient's zip code: [address] Is zip code within program service area: No Patient meets program referral criteria: No Patient does not qualify for High Risk TCM Home Visit program due to: Readmission Risk Score does not meet criteria Disposition: Patient does not qualify for HRTIC, will provide TCM outreach follow-up for 30-days Patient Source: Hvw-qu-Lmydpjq (OON) Discharge Outreach Summary: Pt reports she was dc'd from [place] 08/05 then returned to the [place] [facility] with fevers and SOB , had [...] any questions or concerns. Patient discharged from [facility] Discharge date: 08/05 [facility] Admitted for: urinary urgency , pneumonia Readmission Risk: n/a Value-Based Contract: ACO Copied from 08/02 [place] notes : Chief Complaint: Suprapubic pain nd urinary frequency, weakness HPI Narrative GARLAND DE SANTIAGO, is a 64 F with a history of GERD, YARY, COPD, tobacco use, depression, chronic diarrhea who presented [facility] ED 08/02/2024 with generally not feeling well [...] patient end up in the hospital 08/05 [place] [facility] : Chief Complaint: Shortness of Breath [...] RN and I am calling from the [facility] on behalf of your Primary Care Provider, [...] like to speak with a social work wireless team member to help give you support for any [...] I will send your request to a flight test supervisor who will contact and assist you with [...] TCM Care Management partners utilized: N/A Alyssa Htahaway RN August 07, 2024 2:51 PM documented in this encounterLicking Memorial [facility] Telephone encounter Note * Telephone Encounter - Yenifer Alberto RN - 08/05/2024 7:36 PM EST Reason for call: Patient calling with concern for worsening symptoms since discharge from [facility] earlier today. Hospitalized for GRACIELA. Patient [...] 100-120) Protocols used: Infection on Antibiotic Follow-up Nffi-HTIBL-DP [facility]11-27-2024 Miscellaneous Notes* Telephone Encounter - Yenifer Alberto RN - 08/05/2024 7:36 PM EST Reason for call: Patient calling with concern for worsening symptoms since discharge from [facility] earlier today. Hospitalized for GRACIELA. Patient [...] 100-120) Protocols used: Infection on Antibiotic Follow-up Vdma-VSIGB-CL documented in this encounterLicking [facility] Hospital11-27-2024 [facility]11-26-2024 Telephone encounter Note* Telephone Encounter - Ish Hurtado RN - 08/04/2024 12:26 PM EST Patient returned call and given message below. Patient asking provider office to mail order to her home via [employer]PS. Address verified in chart is correct. Mailed [employer] per request. [facility]11-26-2024 Miscellaneous Notes* Telephone Encounter - Ish Hurtado [...] mail. Karla Parker LPN documented in this encounterLicking Memorial Hospital11-26-2024 Telephone encounter Note * Telephone Encounter - Karla Parker LPN - 08/04/2024 11:21 AM EST Left message for patient to call office. Have an order for a bath/shower chair and needing to know where she would like the order faxed to or whether have it sent to her in the mail. Karla Parker LPN [facility]11-25-2024 Telephone encounter Note* Telephone Encounter - Karissa Collier RN - 08/03/2024 9:21 AM EST Patient notified. Karissa Collier RN [facility]11-25-2024 Miscellaneous Notes* Telephone Encounter - Karissa Collier RN - 08/03/2024 9:21 AM EST Patient notified. Karissa Collier RN * Telephone Encounter - Virginia Silveira LPN - 08/03/2024 7:51 AM EST Left message for patient to return call for results.Virginia Silveira LPN * Telephone Encounter - Mitrha Narvaez PA - 08/03/2024 7:11 AM EST Please contact patient and let her know her urine culture revealed no UTI. She needs to follow-up with primary care for persistent symptoms. If antibiotic is helping, she may continue this documented in this encounterLicking Memorial Hospital11-25-2024 Telephone encounter Note * Telephone Encounter - Virginia Silveira LPN - 08/03/2024 7:51 AM EST Left message for patient to return call for results.Virginia Silveira LPN [facility]11-25-2024 Telephone encounter Note* Telephone Encounter - Mirtha Narvaez PA - 08/03/2024 7:11 AM EST Please contact patient and let her know her urine culture revealed no UTI. She needs to follow-up with primary care for persistent symptoms. If antibiotic is helping, she may continue this [facility] Work Phone: 1(809) 664-804111-24-2024 Evaluation note* Diagnosis Onset Date Resolution Status Admit Date GRACIELA (acute kidney injury) resolved August 02, 2024 11:09am Cervical myelopathy acute Decem 2023 3:32pm Hypertension chronic October 4:01pm Degenerative disc disease, lumbar acute November 16, 2024 3:32pm Degenerative spondylolisthesis nonea ctive November 16, 2024 3:32pm [facility] Work Phone: 1(467) 798-784511-23-2024 [facility] History of Present illness Narrative* Felipe Jolly APRN.[employer] - 08/01/2024 1:59 PM EST Subjective HPI [...] DM type 2 (diabetes mellitus, type 2) (FORMERLY [facility]) Essential hypertension 05/23/2006 Hemorrhage of gastrointestinal tract, [...] 12/13/2011 Colonoscopy repeat 10 years EGD W/O [facility] SPEC VARICIES INJ 02/22/2022 ESOPHAGOGASTRODUODENOSCOPY TRANSORAL DIAGNOSTIC 02/09/2016 EGD INCISE FINGER TENDON SHEATH Right 08/10/2021 Right ring trigger finger release JOINT REPLACEMENT HX LAPS ABD PRTM&OMENTUM DX W/WO SPEC BR/WA SPX Laparoscopy LAPS SURG CHOLECYSTECTOMY W/CHOLANGIOGRAPHY 10/07/2006 LIG/TRNSXJ FLP TUBE ABDL/VAG APPR UNI/BI Tubal ligation PAST SURGICAL HISTORY OF 06/22/2010 right knee arthroscopy- by Dr Dawson ([facility]) PAST SURGICAL HISTORY OF 04/27/2020 low back surgery at [facility];s/p L4 laminectomy, decompression of L4-5 canal stenosis [...] patch. (Patient not taking: Reported on 08/01/2024) swzpgm-spdojfmx-rnqquhf (CREON 24) 24,000-76,000 -120,000 unit delayed release capsule Take 1 capsule by mouth with meals. With snacks and meals (Patient not taking: Reported on 08/01/2024) FAMILY HISTORY Problem Relation Age of Onset Hypertension Mother history of glaucoma Cervical Cancer Mother Asthma Mother Heart Father NE x 2 Cancer Father Lung, metastatic to [...] of care. This note was generated using [employer] Globo[employer] software. It may contain errors in wording, punctuation, or spelling. Felipe Jolly APRN.HEIDY documented in this encounterLicking Memorial Hospital11-22-2024 Telephone encounter Note * Telephone Encounter - Joseph Corrigan LPN - 07/31/2024 3:46 PM EST New orders faxed, confirmation received Joseph Corrigan LPN July 31, 2024 3:46 PM [facility]11-22-2024 Miscellaneous Notes* Telephone Encounter - Joseph Corrigan [...] 07/29/2024 2:40 PM EST Bridgett Cerda @ [facility] calling with request for new EMG order specifying extremity (right arm or leg)? Sriram Cabrales RN documented in this encounterLicking Memorial Hospital11-22-2024 Telephone encounter Note * Telephone Encounter - Indigo Nichols PA-C - 07/31/2024 2:31 PM EST New orders placed for general upper and general lower extremity on the right. [facility]11-22-2024 Telephone encounter Note* Telephone Encounter - Joseph Corrigan LPN - 07/31/2024 11:15 AM EST Images from the original note were not included. Yes new order needs to be placed to specify extremities. Indigo Nichols PA-C Neuro Magdalena3 hours ago (8:09 AM) MQ Both arm and leg, does another order need to be placed? Indigo Nichols PA-C [facility]11-22-2024 [facility]11-[facility] History of Present illness Narrative* Kati Grant [...] 31, 2024 8:56 AM documented in this encounterLicking Memorial Hospital11-20-2024 Instructions* Patient Instructions* Willam Estrada MD - 07/29/2024 5:56 PM EST - Refill your Glipizide prescription at [facility]. - Refill your Motrin prescription; continue taking 600 mg once daily as needed for pain. - Switch to Hydrochlorothiazide 25 mg once daily; refill prescription at [facility]. - Refill your Pantoprazole prescription; continue [...] appointment in 4 months. documented in this encounterLicking Memorial Hospital11-20-2024 [facility]11-[facility] History of Present illness Narrative* Willam Estrada MD - 07/29/2024 5:29 PM EST This note was created using RegistryLove. Subjective Garland De Santiago is a 64 [...] DM type 2 (diabetes mellitus, type 2) (FORM[facility]LY [facility]) Essential hypertension 05/23/2006 Hemorrhage of gastrointestinal tract, [...] as needed for blood sugar over 200 nsamty-cnwixhof-ayhlsfp (CREON 24) 24,000-76,000 -120,000 unit delayed release [...] management. Willam Estrada MD documented in this encounterLicking Memorial Hospital11-20-2024 Telephone encounter Note * Telephone Encounter - Sriram Cabrales RN - 07/29/2024 2:40 PM EST Bridgett Cerda @ [facility] calling with request for new EMG order specifying extremity (right arm or leg)? 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 Joseph Corrigan LPN July 29, 2024 1:36 PM documented in this encounterLicking Memorial Hospital11-20-2024 [facility]11-[facility] History of Present illness Narrative* Indigo Nichols PA-C - 07/29/2024 1:29 PM EST Images from the original note were not included. [facility] Name: Garland De [...] walking on glass and also has chronic xlgo-muk-egsqcnp feeling in her feet. Similar symptoms in [...] the feet. Gets constant numbness and tingling, wxmp-ztk-gmzpoji as well. But when she ambulates, it feels like she is walking on glass and getting her feet cut. Notes that in the last few weeks she started getting symptoms in her hands which is new for her, more intermittent but described more as a osgx-lag-yejnhix feeling throughout the hands bilaterally. Reports maybe [...] Without Long-Term Current Use of Insulin ([facility]) Recurrent Major Depressive Disorder, in Remission ([facility]) Yary (Obstructive Sleep Apnea) Anxiety Lumbar Spinal Stenosis Nicotine use disorder, F17.2 S/P Lumbar Laminectomy Chronic Midline Low Back Pain Gait Instability Severe Persistent Asthma Headache, Unspecified Headache Type Congestion of Respiratory Tract PAST MEDICAL HISTORY Diagnosis Date Allergic rhinitis, cause unspecified 02/10/2007 Anxiety Arthritis Asthma 02/10/2007 Depression Psychiatrist managing (Dr. Bedolla) DM type 2 (diabetes mellitus, type 2) (FORMERLY [facility]) Essential hypertension 05/23/2006 Hemorrhage of gastrointestinal tract, [...] as needed for blood sugar over 200 dzpayx-zmvntwbi-xvtbndh (CREON 24) 24,000-76,000 -120,000 unit delayed release [...] Cervical Cancer Mother Asthma Mother Heart Father NE x 2 Cancer Father Lung, metastatic to [...] 12/13/2011 Colonoscopy repeat 10 years EGD W/O [facility] SPEC VARICIES INJ 02/22/2022 ESOPHAGOGASTRODUODENOSCOPY TRANSORAL DIAGNOSTIC 02/09/2016 EGD INCISE FINGER TENDON SHEATH Right 08/10/2021 Right ring trigger finger release JOINT REPLACEMENT HX LAPS ABD PRTM&OMENTUM DX W/WO SPEC BR/WA SPX Laparoscopy LAPS SURG CHOLECYSTECTOMY W/CHOLANGIOGRAPHY 10/07/2006 LIG/TRNSXJ FLP TUBE ABDL/VAG APPR UNI/BI Tubal ligation PAST SURGICAL HISTORY OF 06/22/2010 right knee arthroscopy- by Dr Dawson ([facility]) PAST SURGICAL HISTORY OF 04/27/2020 low back surgery at [facility];s/p L4 laminectomy, decompression of L4-5 canal stenosis with bilateral L4,L5 root foraminotomies TONSILLECTOMY PRIMARY/SECONDARY <AGE 12 Tonsillectomy VAGINAL HYSTERECTOMY UTERUS 250 GM/< Hysterectomy, vaginal for menorrhagia SOCIAL HISTORY Lived in [facility] 1 month, 6 attached units in [...] Skin Biopsy: This note was dictated using GKN - GloboKasNet speech recognition software and may contain some [...] which included preparing to see the patient, fkcl-di-qldx patient care, completing clinical documentation, obtaining and/or reviewing separately obtained history, performing a medically appropriate examination, counseling and educating the pat ient/family/caregiver, and ordering medications, tests, or procedures. documented in this encounterLicking Memorial Hospital11-14-2024 [facility]11-14-2024 History of Present illness Narrative* Kati Grant [...] of a house which she got [facility]. She is ambulatory but is very unsteady on her feet and has had one prior recent fall. She has to take 19 stairs to get to her unit. She is independent withmeal prep, and self care, but she is unable tyo take baths since she cannot get in and out of the tub safely. Patient also needs assistance with career development counselor like heavy lifting etc.. She has Medicare [...] pay for it. Referral initiated with [facility]. They will call her and arrange for her assessment in the home. Interventions: Advocacy Assessment Referral to community resource Stakeholder collaboration BOLIVAR Doan July 23, 2024 3:09 PM documented in this encounterLicking Memorial Hospital11-13-2024 [facility]11-13-2024 History of Present illness Narrative* Kati Grant LSW - 07/22/2024 3:56 PM EST Value Based Social Work Progress Note Provider Action / RACHAELI PCP Action klawock Date of Service: 07/22/2024 Patient identified by name/: No and left message Referral Source: Referral Patient Outreach: Initial for assistance with life alert/ on Medicaid Mode of Outreach: Phone Call Response Time: Unable to reach (1st Attempt) Left message by: Voicemail BOLIVAR Doan July 22, 2024 3:56 PM documented in this encounterLicking Memorial Hospital11-13-2024 [facility]11-13-2024 History of Present illness Narrative* Tex Foreman [...] more often than normal? No Based on head of measurement & insights, the following disposition is advised: No symptoms or symptoms present, not severe. Routed to: No Action Needed LISA Education Provided this Outreach: No Tex Foreman RN July 22, 2024 11:42 AM documented in this encounterLicking Memorial Hospital11-01-2024 Telephone encounter Note * Telephone Encounter - [...] as instructed once daily. Karissa Collier RN [facility]11-01-2024 Miscellaneous Notes* Telephone Encounter - Karissa Collier [...] daily. Karissa Collier RN documented in this encounterLicking Memorial Hospital10-31-2024 Telephone encounter Note * Telephone Encounter - Willam Estrada MD - 07/09/2024 11:21 PM EDT Noted has appointment with neurology before appointment with ut 07/29 No change in gabapentin dose at this time. [facility]10-31-2024 Miscellaneous Notes* Telephone Encounter - Willam Estrada MD - 07/09/2024 11:21 PM EDT Noted has appointment with neurology before appointment with ut 07/29 No change in gabapentin dose at this time. * Telephone Encounter - Sriram Cabrales RN - 07/09/2024 5:37 PM EDT Spoke with patient. She wants to see Neurologist before increasing Gabapentin. Transferred to flight test supervisor for appointment. Sriram Cabrales RN * Telephone [...] recommended? Fabiana Hernandez LPN documented in this encounterLicking Memorial Hospital10-31-2024 Telephone encounter Note * Telephone Encounter - Sriram Cabrales RN - 07/09/2024 5:37 PM EDT Spoke with patient. She wants to see Neurologist before increasing Gabapentin. Transferred to flight test supervisor for appointment. Sriram Cabrales RN [facility]10-31-2024 Telephone encounter Note* Telephone Encounter - Willam Estrada MD - 07/09/2024 3:43 PM EDT Option for neuropathy pain: Increase dose of gabapentin as tolerated Referral to pain management Referral to neurology. Filed the consult to neurology since patient requested as noted below. See if wants to try higher dose gabapentin or see neurologist first [facility]10-30-2024 Telephone encounter Note* Telephone Encounter - Karla Parker LPN - 07/08/2024 5:48 PM EDT Printed copy of TE to have PCP address. Karla Parker LPN [facility]10-30-2024 Telephone encounter Note* Telephone Encounter - Corinne Belle LPN - 07/08/2024 3:55 PM EDT Patient calling again, states she had another episode of severe pain in her feet for 3 hours last night. Asking what the recommendation is. Please advise. [facility]10-29-2024 Telephone encounter Note* Telephone Encounter - Fabiana [...] or what is recommended? Fabiana Hernandez LPN [facility]10-27-2024 [facility]10-25-2024 Note [facility] History of Present illness Narrative* Oxana Pack RN - 07/03/2024 1:22 PM EDT CDM Telephonic Outreach Provider Action/FYI Monthly outreach call # 1 Contacted for: Routine Telephonic Outreach Contact made with patient: No, left message. Oxana Pack RN July 03, 2024 1:22 PM documented in this encounterLicking Memorial Hospital10-21-2024 Telephone encounter Note * Telephone Encounter - Jonnathan Nagy LPN - 06/29/2024 2:55 PM EDT OK to keep appt. Patient notified. Jonnathan Nagy LPN [facility]10-21-2024 Miscellaneous Notes* Telephone Encounter - Jonnathan Nagy LPN - 06/29/2024 2:55 PM EDT OK to keep appt. Patient notified. Jonnathan Nagy LPN * Telephone Encounter - Deena Flynn LPN - 06/29/2024 11:57 AM EDT Patient called in and is wondering if she should keep her appt with Roxi Click tomorrow since her CT is not back yet. Deena Flynn LPN documented in this encounterLicking Memorial Hospital10-21-2024 Telephone encounter Note * Telephone Encounter - Deena Flynn LPN - 06/29/2024 11:57 AM EDT Patient called in and is wondering if she should keep her appt with Roxi Click tomorrow since her CT is not back yet. Deena Flynn LPN [facility]10-15-2024 History of Present illness Narrative* Reef Tran [...] PATIENT PRESENTS WITH AN IMPLANTABLE OR ATTACHED HYDROELECTRIC PLANT TECHNICIAN: No RADIOLOGY DEPARTMENT: CT; Exam(s) Completed: Chest PERIPHERAL IV DATA: Not applicable SIGNED BY: RT Edwin(R) June 23, 2024 3:52 PM documented in this encounterLicking Memorial Hospital10-15-2024 NoteP[facility]10-03-2024 Telephone encounter Note* Telephone Encounter - Willam Estrada MD - 06/11/2024 9:39 PM EDT The following approved medication requests have been transmitted electronically. Requested Prescriptions Signed Prescriptions Disp Refills gabapentin (NEURONTIN) 300 mg capsule 120 capsule 5 Sig: Take 2 capsules by mouth two times a day for 180 days. Authorizing Provider: WILLAM ESTRADA MD [facility]10-03-2024 Miscellaneous Notes* Telephone Encounter - Willam Estrada [...] 11, 2024 8:29 AM documented in this encounterLicking Memorial Hospital10-03-2024 Telephone encounter Note * Telephone Encounter - Crseencio Sharp MA - 06/11/2024 8:29 AM EDT [...] Sharp MA June 11, 2024 8:29 AM [facility]09-26-2024 [facility]09-26-[facility] History of Present illness Narrative* Oxana Pack [...] more often than normal? Yes Based on head of measurement & insights, the following disposition is advised: No symptoms or symptoms present, not severe. Routed to: No Action Needed LISA Education Provided this Outreach: Yes Patient states she has been a little more short of breath and coughing up clear phlegm. Patient attributes to the fall approaching. Offered to contact virtualist. Denies current need. Agrees to contact PCP or adjunct instructor should the symptoms get worse. Denies other needs, questions, concerns at this time. Oxana Pack RN June 04, 2024 2:58 PM documented in this encounterLicking Memorial Hospital09-11-2024 Telephone encounter Note * Telephone Encounter - Allegra Berumen APRN.[facility] - 05/20/2024 10:45 AM EDT COVID-19 Oral [...] the COVID-19 treatment considerations Criteria Met: Yes [facility]09-11-2024 Miscellaneous Notes* Telephone Encounter - Allegra Berumen [...] Paxlovid RX to be sent to [facility].Mirlande Amin LPN * Telephone Encounter - Allegra [...] the Paxlovid rx to be sent to [facility]. Please advise documented in this encounterLicking Memorial Hospital09-11-2024 Telephone encounter Note * Telephone Encounter - [...] Berumen APRN.CNP May 20, 2024 10:44 AM [facility]09-11-2024 Instructions* Patient Instructions* Allegra Berumen APRN.CNP - 05/20/2024 10:44 AM EDT Images from the original note were not included. FACT SHEET FOR PATIENTS, PARENTS, AND CAREGIVERS EMERGENCY USE AUTHORIZATION (EUA) OF PAXLOVID FOR CORONAVIRUS DISEASE 2019 (COVID-19) You are being given this Fact Sheet because your healthcare provider believes it is necessary to provide you with PAXLOVID for the treatment of jres-sx-ijfphdrn coronavirus disease (COVID-19) caused by the SARS-CoV-2 [...] to makePAXLOVID available for the treatment of wyxt-ca-chofwzix COVID-19 in adults and children 12 years [...] virus. COVID-19 illnesses have ranged from very dvee-wk-njpqte, including illness resulting in . While information [...] available under EUA for the treatment of gvzn-qg-qqsyfdnz COVID-19 in adults and children 12 years [...] of using PAXLOVID to treat children with mhsk-ms-fudkstsj COVID-19. What is the most important information [...] o ranolazine o rifampin o rifapentine o [place] s Wort (hypericum perforatum) o sildenafil (Revatio [...] the medicines you take, including prescription and cahh-zpj-fejgwrn medicines, vitamins, and herbal supplements. Your healthcare [...] morning or evening, depending on when you hop picker your prescription, or as your healthcare [...] PAXLOVID is FDA-approved for the treatment of wstp-rc-fhkfjnyd COVID-19 in certain adults; however,there are not sufficient quantities of the approved presentations (i.e., dose packs) of PAXLOVID atthis time. This EUA continues to authorize the emergency use of PAXLOVID for the approved patient population to ensure continued access in order to meet the public health need. VEKLURY (remdesivir) is FDA-approved for the treatment of ikhu-fg-ewghqugh COVID-19 in certain adults and children. Talk with your healthcare provider to see if VEKLURY is appropriate for you. For information on the emergency use of other medicines that are authorized by FDA to treat people with COVID-19, please go to https://www.fda.gov/vjejobice-nagdxqewggth-vwl-response/dnd-qwqoz-npzobre elq-zum-qvfnkp-framework/jsontawli-tvi-pugsmmmrllrkw. Your healthcare provider may talk with you [...] to FDA MedWatch at www.fda.gov/medwatch or call 0-033-FJA-7372 or you can report side effects to [employer]. at the contact information provided below. How [...] bottom of blister pack at this website: https://www.[employer]Metrics.Meaningo/ or talk with your healthcare provider. Information onthe authorized shelf-life extensions for PAXLOVID may also be found at https://www.fda.gov/emergency -fkkzpbjswdcg-avi-zodepycn/ezl-lejls-tsdsziasrj-ver-mdkfgm-brixcavwk/expiration- dating-extension. How can I learn more about COVID-19? Ask your healthcare provider. Visit https://www.cdc.gov/COVID19. Contact your local or state public health department. What is an Emergency Use Authorization (EUA)? The [place] FDA has made PAXLOVID available under an emergency access mechanism called an Emergency Use Authorization (EUA). The EUA is supported by a Engineering Specialist of Health and Human Services ([facility]) declaration that circumstances exist to justify the [...] call the telephone number provided below. Website: www.EFVIO81wavpSf.com Telephone number: (1-877-c19-PACK) Distributed by [employer] Division [place] [address] [id number] Revised: 01/2023 documented in this encounterLicking Memorial Hospital09-11-2024 Telephone encounter Note * Telephone Encounter - Mirlande Amin LPN - 05/20/2024 10:41 AM EDT Patient notified, verbalized understanding. Asking for Paxlovid RX to be sent to [facility].Mirlande Amin LPN [facility]09-11-2024 Telephone encounter Note* Telephone Encounter - Allegra [...] hold those medications while taking the Paxlovid? [facility]09-11-2024 Telephone encounter Note* Telephone Encounter - Karissa Collier RN - 05/20/2024 9:44 AM EDT To add to note below: Patient also asking to clarify if she should take all 3 medications; the Medrol Dose Pack, the Z-Arnulfo and the Paxlovid? Please call patient back with reply to this note, and request below, as soon as able. Thank you. [facility]09-11-2024 Telephone encounter Note* Telephone Encounter - Nat Malik LPN - 05/20/2024 9:32 AM EDT Patient calling her COVID test came back positive today. Patient is asking for the Paxlovid rx to be sent to [facility]. Please advise [facility]09-10-2024 Instructions* Patient Instructions* Willam Estrada MD - 05/19/2024 7:36 PM EDT -Start taking the Medrol Dose Pack and Z-Arnulfo as prescribed to address your current symptoms and prevent them from worsening. - You will be swabbed for COVID, flu, and RSV today; [facility]. - If your COVID test [...] Saturday with Dr. Nair. documented in this encounterLicking [facility] Hospital09-10-2024 [facility] History of Present illness Narrative* Willam Estrada MD - 05/19/2024 7:10 PM EDT This note was created using [employer]. Subjective Garland De Santiago is a 63 [...] DM type 2 (diabetes mellitus, type 2) (FORMERLY [facility]) 05/23/2006: Essential hypertension 12/13/2011: Hemorrhage of gastrointestinal [...] needed. (Patient not taking: Reported on 05/19/2024) laaefp-hbhqyqcv-vvdbgsi (CREON 24) 24,000-76,000 -120,000 unit delayed release [...] Stage 2 moderate COPD by GOLD classification ([facility]LY [facility]) - Recent exacerbation with increased chest tightness; nebulizer treatments providing relief. - Continues daily use of Breo Ellipta; refills sent to pharmacy. - Prescribed Flonase, two sprays in each nostril as needed for decongestion; refills sent to [facility]. - Patient has adequate supply of albuterol for nebulizer and inhaler use. - Discussed potential need for pneumococcal booster in five years due to COPD history. Encounter Diagnosis ICD-10-CM 1. Sinobronchitis J32.9 COVID & INFLUENZA A/B & RSV PCR, ROUTINE J40 2. Stage 2 moderate COPD by GOLD classification (FORMERLY [facility]) J44.9 fluticasone- vilanterol (BREO ELLIPTA) 200-25 mcg/dose inhaler 3. Acute upper respiratory infection J06.9 COVID & INFLUENZA A/B & RSV PCR, ROUTINE 4. Acute viral syndrome B34.9 COVID-19 antigen test (COVID-19 AT-HOME TEST) kit COVID test kits RX given as requested Willam Estrada MD documented in this encounterLicking Memorial Hospital08-30-2024 Telephone encounter Note * Telephone Encounter - Keyana Vieira RN - 05/08/2024 8:29 PM EDT Reason for Call: Dysuria., abdominal pain. Outcome: See within 4 hours. States she will go to [place] [facility] now. Reason for Disposition Diabetes mellitus [...] medication tried. Protocols used: Urination Pain - Vggkyj-WLLDM-GF [facility]08-30-2024 Miscellaneous Notes* Telephone Encounter - Keyana Vieira RN - 05/08/2024 8:29 PM EDT Reason for Call: Dysuria., abdominal pain. Outcome: See within 4 hours. States she will go to [place] [facility] now. Reason for Disposition Diabetes mellitus [...] medication tried. Protocols used: Urination Pain - Beeynx-SZQSP-EB documented in this encounterLicking Memorial Hospital08-29-2024 History of Present illness Narrative* Mona Corrigan MD - 05/07/2024 2:45 PM EDT Images from the original note were not included. . Respiratory Dalton Note Patient name: Garland De Santiago PCP: Willam Estrada MD CC: Follow-up obstructive lung disease HPI: Garland De Santiago 63 year old female current 36 pack year smoker with PMH significant for allergies, asthma, DM2, HTN, YARY non-compliant with BiPAP. Current inhaled therapy with Breo Ellipta andalbuterol. Participating in lung cancer screening. [facility] Due to an elevated D-dimer [...] using nicotine patches. DATA: Reviewed EMR from [facility] as well as images SERVICE DATE: 11/11/2023 SERVICE TIME: 11:02 AM Oral Exhaled Nitric Oxide measurement: 6.0 (ppb) PFT 11/2023: Pulmonary function tests show small airways obstruction Imaging / Diagnostic Studies: DATE OF EXAM: Nov 22 2023 3:59PM [facility] 0562 - CT LUNG SCREEN [facility] / COMPARISON: Low-dose screening CT performed at [...] air trapping and small pulmonary nodules [facility] 03/23/24: Groundglass nodule, mosaic pattern, patchy infiltrates mainly on the left PAST MEDICAL HISTORY 02/10/2007: Allergic rhinitis, cause unspecified No date: Anxiety No date: Arthritis 02/10/2007: Asthma No date: Depression Comment: Psychiatrist managing (Dr. Bedolla) No date: DM type 2 (diabetes mellitus, type 2) (FORM[facility]LY [facility]) 05/23/2006: Essential hypertension 12/13/2011: Hemorrhage of gastrointestinal [...] Puffs as instructed every 4 hours asneeded. mjvytt-iwlexyxo-zmyvvfz (CREON 24) 24,000-76,000 -120,000 unit delayed release [...] -Weight loss advised Mona Corrigan MD Respiratory Dalton documented in this encounterLicking Memorial Hospital08-29-2024 [facility]08-20-2024 [facility]08-20-2024 History of Present illness Narrative* Rola Browne RN - 04/28/2024 12:40 PM EDT CDM Telephonic Outreach Provider Action/FYI history of COPD Contacted for: Goals/Falls/ADL Update Contact made with patient: No, left message. Rola Browne RN April 28, 2024 2:05 PM and Engagement Contact made with patient: No, left message. Rola Browne RN April 28, 2024 2:05 PM documented in this encounterLicking Memorial Hospital08-12-2024 Instructions* Patient Instructions* Willam Estrada MD - [...] spilling through the kidneys. documented in this encounterLicking Memorial Hospital08-12-2024 NoteP[facility]08-12-2024 History of Present illness Narrative* Willam Estrada MD - 04/20/2024 11:58 AM EDT This note was created using Snap[employer]. Subjective Garland De Santiago is a 63 [...] Arthritis 02/10/2007: Asthma No date: Centrilobular emphysema ([facility]LY [facility]) No date: Depression Comment: Psychiatrist managing (Dr. Bedolla) No date: DM type 2 (diabetes mellitus, type 2) ([facility]LY [facility]) 05/23/2006: Essential hypertension 12/13/2011: Hemorrhage of gastrointestinal [...] Puffs as instructed every 4 hours asneeded. miucdq-zfjypmgi-zfafdja (CREON 24) 24,000-76,000 -120,000 unit delayed release [...] the date of the service which included ibvo-ij-wjof patient care, completing clinical documentation, obtaining and/or reviewing separately obtained history, performing a medically appropriate examination, counseling and educating the patient/family/caregiver, and ordering medications, tests, or procedures. Willam Estrada MD documented in this encounterLicking Memorial Hospital08-11-2024 Telephone encounter Note * Telephone Encounter - Renu Peña RN - 04/19/2024 1:09 PM EDT Reason for Call: Wheezing and increased use of nebulizer, recent hospitalization. Outcome: Advised to be seen within 24 hours. Caller conferenced to [facility] appointment center for available appointment in office [...] side effects with breathing Protocols used: Breathing Gudabyekxk-VNXQC-XE, Asthma Uwdnml-XZTBR-ZQ [facility]08-11-2024 Miscellaneous Notes* Telephone Encounter - Renu Peña RN - 04/19/2024 1:09 PM EDT Reason for Call: Wheezing and increased use of nebulizer, recent hospitalization. Outcome: Advised to be seen within 24 hours. Caller conferenced to Shnaa in appointment center for available appointment in [...] side effects with breathing Protocols used: Breathing Fphuowcrxt-JGALK-ZJ, Asthma Bzrrua-YFNKY-HU documented in this encounterLicking Memorial Hospital08-01-2024 NoteP[facility]08-01-2024 History of Present illness Narrative* Alyssa Hathaway RN - 04/09/2024 3:40 PM EDT Transitional Care Management (TCM) Follow-Up Note PCP Update / Actionable Items Pt reports she is feeling much improved over the last 2 weeks. BP has been WNL. Breathing well. Denies any SOB , chest discomfort, cough, wheezing. N/A - No specialty updates needed Patient Source: Osw-if-Dvjzvzz (OON) Discharge Pt discharged from [facility] on 03/24/24. Admitted for: UTI, pneumonia , [...] 09, 2024 3:45 PM documented in this encounterLicking Memorial Hospital07-29-2024 Telephone encounter Note * Telephone Encounter - Derick Goddard LPN - 04/06/2024 2:34 PM EDT PATIENT NOTIFIED OF SAME. Will contact his office to request the refill. [facility]07-29-2024 Miscellaneous Notes* Telephone Encounter - Derick Goddard LPN - 04/06/2024 2:34 PM EDT PATIENT NOTIFIED OF SAME. Will contact his office to request the refill. * Telephone Encounter - Leilani Ramirez APRN.CNS - 04/06/2024 2:28 PM EDT It looks like Dr. Caceres gastroenterology at [facility] has ordered this, if she is [...] 06, 2024 1:16 PM documented in this encounterLicking Memorial Hospital07-29-2024 Telephone encounter Note * Telephone Encounter - Leilani Ramirez APRN.CNS - 04/06/2024 2:28 PM EDT It looks like Dr. Caceres gastroenterology at [facility] has ordered this, if she is still seeing him would recommend she check with him for refill first and let us know if any problems [facility]07-29-2024 Telephone encounter Note* Telephone Encounter - Derick [...] Goddard LPN April 06, 2024 1:16 PM [facility]07-29-2024 Telephone encounter Note* Telephone Encounter - Cristiane [...] Figueroa LPN April 06, 2024 12:58 PM [facility]07-29-2024 Miscellaneous Notes* Telephone Encounter - Cristiane Figueroa [...] 06, 2024 12:58 PM documented in this encounterLicking Memorial Hospital07-29-2024 Telephone encounter Note * Telephone Encounter - [...] Figueroa LPN April 06, 2024 12:57 PM [facility]07-29-2024 Miscellaneous Notes* Telephone Encounter - Cristiane Figueroa [...] 06, 2024 12:57 PM documented in this encounterLicking Memorial Hospital07-25-2024 Telephone encounter Note * Telephone Encounter - Mirlande Amin LPN - 04/02/2024 8:43 AM EDT Patient notified of below results/recommendations. Garland is wanting to push fluids and see if the symptoms resolve. Mirlande Amin LPN [facility]07-25-2024 Miscellaneous Notes* Telephone Encounter - Mirlande Amin [...] kidney disease? Please advise documented in this encounterLicking Memorial Hospital07-25-2024 Telephone encounter Note * Telephone Encounter - [...] or wait and see if symptoms improve. [facility]07-23-2024 Telephone encounter Note* Telephone Encounter - Nat [...] concern she has kidney disease? Please advise [facility]07-22-2024 [facility]07-22-2024 History of Present illness Narrative* Willam Estrada [...] Patient presents with: ED Follow-up Hospital F/U: [facility] follow up from 03/21/24 - 03/24/24 [...] DM type 2 (diabetes mellitus, type 2) (FORMERLY [facility]) Essential hypertension 05/23/2006 Hemorrhage of gastrointestinal tract, [...] Puffs as instructed every 4 hours asneeded. zkzfpa-afyicsat-krxiski (CREON 24) 24,000-76,000 -120,000 unit delayed release [...] sleep. Willam Estrada MD documented in this encounterLicking Memorial Hospital07-18-2024 NoteP[facility]07-18-2024 History of Present illness Narrative* Chela Montgomery [...] 05/07 Pulm f/u SUMMARY: Discharge Network Status: Gky-bi-Lrjscte (OON) Discharge Pt discharged from [facility] on 03/24/24. Admitted for: UTI, pneumonia , [...] criteria Disposition: [facility] will provide TCM outreach follow-up for 30-days Alyssa Hathaway RN March 26, 2024 11:08 AM Contact made with patient: Yes Hi my name is Alyssa Hathaway RN and I am calling [facility] the [facility] on behalf of yourPCP, Willam Estrada MD [...] on? Pt states Atenolol dc 'd by [employer]. Do you need any medication refills [...] like to speak with a social work wireless team member to help give you support for any [...] I will send your request to a flight test supervisor who will contact and assist you with [...] 26, 2024 11:18 AM documented in this encounterLicking Memorial Hospital07-18-2024 Telephone encounter Note * Telephone Encounter - [...] dose pack of 50 Willam Estrada MD [facility]07-18-2024 Miscellaneous Notes* Telephone Encounter - Willam Estrada [...] daily. Unit dose pack of 50 Willam Estraad MD * Telephone Encounter - Alyssa Hathaway RN - 03/26/2024 11:55 AM EDT Physician: Dr Estrada Call from patient requesting refill. Please E-Scribe Pt states she was advised by [employer] that her refills were and needed to request new rx 's [email or web address] Dr Estrada 03/30/24 Requested Prescriptions Pending Prescriptions Disp Refills albuterol (PROVENTIL) 2.5 mg /3 mL (0.083 %) nebulizer solution 50 mL 5 Sig: Use 3 mL via nebulizer every 4 hours as needed for wheezing/shortness of breath. ipratropium (ATROVENT) 0.02 % nebulizer solution 50 mL 5 Sig: Use 2.5 mL via nebulizer four times daily. Unit dose pack of 50 Pharmacy Name: [facility] Phone #: [phone] Alyssa Hathaway RN documented in this encounterLicking Memorial Hospital07-18-2024 NoteHNO ID: [id number] Author: WILLAM ESTRADA MD Service: ? Author Type: Physician Type: Progress Notes Filed: 03/26/2024 12:03 Note Text: Does patient want to come in this afternoon or next ? 40 minute ?[facility]07-18-2024 Telephone encounter Note* Telephone Encounter - Alyssa Hathaway RN - 03/26/2024 11:55 AM EDT Physician: Dr Estrada Call from patient requesting refill. Please E-Scribe Pt states she was advised by [employer] that her refills were and needed to request new rx 's Last OV: 03/04/24 with [facility] OV: Dr Estrada 03/30/24 Requested Prescriptions Pending [...] Pharmacy Name: [facility] Phone #: [phone] Alyssa Hathaway RN [facility]07-18-2024 [facility]07-16-2024 [facility]07-15-2024 Telephone encounter Note* Telephone Encounter - Frieda Blake MA - 03/23/2024 9:32 AM EDT Left message for patient to return call. Frieda Blake MA [facility]07-15-2024 Miscellaneous Notes* Telephone Encounter - Frieda Blake MA - 03/23/2024 9:32 AM EDT Left message for patient to return call. Frieda Blake MA * Telephone Encounter - Deena Ivey APRN.CNP - 03/23/2024 9:01 AM EDT Urine culture reveals bacterial growth. ATB selected provides coverage. Please advise patient to complete, Follow up with PCP if sx persist. Please advise documented in this encounterLicking Memorial Hospital07-15-2024 Telephone encounter Note * Telephone Encounter - Deena Ivey APRN.CNP - 03/23/2024 9:01 AM EDT Urine culture reveals bacterial growth. ATB selected provides coverage. Please advise patient to complete, Follow up with PCP if sx persist. Please advise [facility]07-12-2024 Instructions* Patient Instructions* Deena Ivey APRN.CNP - [...] treated. A physician, nurse practitioner or physician assistant facility manager may treat with a short course of [...] women if symptoms resolve. documented in this encounterLicking Memorial Hospital07-12-2024 [facility]07-12-2024 History of Present illness Narrative* Deena Ivey APRN.CNP - 03/20/2024 4:00 PM EDT This note was created using [employer]. Rober De Santiago is a 63 year [...] history is provided by the patient. No data coordinator was used. UTI This is a new [...] 02/10/2007 Anxiety Arthritis Asthma 02/10/2007 Centrilobular emphysema ([facility]) Depression Psychiatrist managing (Dr. Bedolla) DM type 2 (diabetes mellitus, type 2) ([facility]LY [facility]) Essential hypertension 05/23/2006 Hemorrhage of gastrointestinal tract, [...] 06/22/2010 right knee arthroscopy- by Dr Dawson ([facility]) PAST SURGICAL HISTORY OF 04/27/2020 low back surgery at [facility];s/p L4 laminectomy, decompression of L4-5 canal stenosis [...] Puffs as instructed every 4 hours asneeded. xdtyaa-fccghaam-qgwutwa (CREON 24) 24,000-76,000 -120,000 unit delayed release [...] Cervical Cancer Mother Asthma Mother Heart Father NE x 2 Cancer Father Lung, metastatic to [...] URINE (POC) - URINE CULTURE Deena Ivey APRN.HOG FEEDER documented in this encounterLicking Memorial Hospital07-12-2024 Telephone encounter Note * Telephone Encounter - Nat Malik LPN - 03/20/2024 3:43 PM EDT Patient calling she is having UTI symptoms, pelvic pain, had been incontinent of urine. Aware no appt available this afternoon with PCP or SPECIAL EDUCATION PROFESSOR, advised to go to express care for evaluation. Patient said she would go to express care. [facility]07-12-2024 Miscellaneous Notes* Telephone Encounter - Nat Malik LPN - 03/20/2024 3:43 PM EDT Patient calling she is having UTI symptoms, pelvic pain, had been incontinent of urine. Aware no appt available this afternoon with PCP or SPECIAL EDUCATION PROFESSOR, advised to go to express care for evaluation. Patient said she would go to express care. documented in this encounterLicking Memorial Hospital06-26-2024 History of Present illness Narrative* Aurora Ortiz [...] PATIENT PRESENTS WITH AN IMPLANTABLE OR ATTACHED HYDROELECTRIC PLANT TECHNICIAN: No RADIOLOGY DEPARTMENT: General X-ray: Exam(s) Completed: Chest X-Ray Upper Extremity X-Ray(s): Elbow, right PERIPHERAL IV DATA: Not applicable SIGNED BY: RT Dale(R) March 04, 2024 2:53 PM documented in this encounterLicking Memorial Hospital06-26-2024 History of Present illness Narrative* Felipe Jolly APRN.HOG FEEDER - 03/04/2024 2:38 PM EDT Subjective HPI [...] 06/22/2010 right knee arthroscopy- by Dr Dawson ([facility]) PAST SURGICAL HISTORY OF 04/27/2020 low back surgery at [facility];s/p L4 laminectomy, decompression of L4-5 canal stenosis [...] Puffs as instructed every 4 hours asneeded. ccfczk-qotwsssf-skzcvvc (CREON 24) 24,000-76,000 -120,000 unit delayed release [...] Cervical Cancer Mother Asthma Mother Heart Father NE x 2 Cancer Father Lung, metastatic to [...] Wt 87.8 kg (193 lb 9 oz) AbJ459% BMI 31.24 kg/m Hr 90 Review of [...] plan of care. This note was generatedusing [employer] - Globo[employer] software. It may contain errors in wording, punctuation, or spelling. Felipe Jolly APRN.HOG FEEDER documented in this encounterLicking Memorial Hospital06-11-2024 History of Present illness Narrative* Aurora Ortiz [...] PATIENT PRESENTS WITH AN IMPLANTABLE OR ATTACHED HYDROELECTRIC PLANT TECHNICIAN: No RADIOLOGY DEPARTMENT: General X-ray: Exam(s) Completed: Lower Extremity X- Ray(s): Foot, Left PERIPHERAL IV DATA: Not applicable SIGNED BY: RT Dale(R) February 18, 2024 3:43 PM documented in this encounterLicking Memorial Hospital06-11-2024 History of Present illness Narrative* Allegra Berumen APRN.HOG FEEDER - 02/18/2024 3:30 PM EDT SUBJECTIVE Garland [...] , filters, tubing, humidifier and lifetime supplies. mtvgab-xrilcvly-vtmdhvu (CREON 24) 24,000-76,000 -120,000 unit delayed release [...] Recurrent Major Depressive Disorder, in Remission ([facility]) Type 2 Diabetes Mellitus With Diabetic Neuropathy, Without Long-Term Current Use of Insulin ([facility]) -02/01/2017 Obesity (Bmi 30.0-34.9) Rhinitis - [...] appointment.. Allegra Berumen APRN-HEIDY documented in this encounterLicking Memorial Hospital05-17-2024 Telephone encounter Note * Telephone Encounter - Willam Estrada MD - 01/24/2024 12:53 PM EDT Will discuss at her appointment next month then whether should get sooner. [facility]05-17-2024 Miscellaneous Notes* Telephone Encounter - Willam Estrada [...] starchy anyway). See whether Rito Sanchez or alumni relations officer will be checking labs through their lab [...] the tests. Please advise documented in this encounterLicking Memorial Hospital05-16-2024 Telephone encounter Note * Telephone Encounter - Keshia Briseno LPN - 01/23/2024 11:57 AM EDT Patient notified of providers message and verbalized understanding. Patient states that cardiology states they will be having her do labs prior to her appointment with them in March. [facility]05-15-2024 Telephone encounter Note* Telephone Encounter - Willam [...] starchy anyway). See whether Rito Sanchez or alumni relations officer will be checking labs through their lab or just get through [facility] when due.for checking next month. [facility]05-13-2024 Telephone encounter Note* Telephone Encounter - Nat [...] in chart from the tests. Please advise [facility]04-29-2024 Telephone encounter Note* Telephone Encounter - Allegra Berumen APRN.CNP - 01/06/2024 8:35 AM EDT See telephone encounter regarding results. [facility]04-29-2024 Miscellaneous Notes* Telephone Encounter - Allegra Berumen APRN.CNP - 01/06/2024 8:35 AM EDT See telephone encounter regarding results. documented in this encounterLicking Memorial Hospital04-05-2024 Miscellaneous Notes* Telephone Encounter - Ish Hurtado [...] advise, Ashley Hernandez RN documented in this encounterLicking Memorial Hospital04-01-2024 Miscellaneous Notes* Telephone Encounter - Allegra Berumen [...] her CPK was in the 800s to 57000 range and at the time, recommended that since was only up the 1000's range and she was without symptoms, no further work up was needed--he suspected she had a hereditary disorder causing the elevation without symptoms. Okay to refer for further evaluation now if wants. I did not see any recent labs--check [facility] if was done there. Last ones checked here in [facility] [place] to 300s to 500s range. I can file a consult order if she wants but verify what her CK level has been at [facility] and verify if having symptoms now * [...] could have the muscle biopsy done at [facility] with one of the general surgeons, if pcp could send an order to them. Please advise patient. documented in this encounterLicking Memorial Hospital03-29-2024 History of Present illness Narrative* Willam Estrada [...] Puffs as instructed every 4 hours asneeded. eabnxo-qsxfpmqy-vzvoxfr (CREON 24) 24,000-76,000 -120,000 unit delayed release [...] which included preparing to see the patient, elmt-cj-vzbv patient care, completing clinical documentation, obtaining and/or reviewing separately obtained history, performing a medically appropriate examination, counseling and educating the pat ient/family/caregiver, ordering medications, tests, or procedures, independently interpreting results (not separately reported), and communicating results to the patient/family/caregiver. Willam Estrada MD documented in this encounterLicking Memorial Hospital03-21-2024 Procedure [facility]03-21-2024 Procedure [facility]03-18-2024 Miscellaneous Notes* Telephone Encounter - Justyna Mora APRN.CNP - 11/25/2023 2:56 PM EDT Spoke with patient and the following results were discussed: LDCT Lung Screen Results LungRADS category: 2 S Incidentals: moderate coronary artery calcifications Recommendations: Continue annual screening with LDCT in 12 months. Follow up with cardiology -[facility]. Patient verbalized understanding of the results and had no other questions or concerns at this time. Justyna Mora APRN.CNP November 25, 2023 2:56 PM * Telephone Encounter - Vikki Oliveira MA - 11/25/2023 11:06 AM EDT Pt calling for results of recent Screening CT. She states it is ok to send results via [employer]. Vikki Oliveira MA documented in this encounterLicking Memorial Hospital03-15-2024 History of Present illness Narrative* Tran Wilson [...] PATIENT PRESENTS WITH AN IMPLANTABLE OR ATTACHED HYDROELECTRIC PLANT TECHNICIAN: No RADIOLOGY DEPARTMENT: CT; Exam(s) Completed: Chest PERIPHERAL IV DATA: Not applicable SIGNED BY: RT Edwin(R) November 22, 2023 3:59 PM documented in this encounterLicking Memorial Hospital03-13-2024 Miscellaneous Notes* Telephone Encounter - Corinne Belle [...] study from 2013 to be faxed to [phone]. Pending order to print Please advise documented in this encounterLicking Memorial Hospital03-12-2024 Instructions* Patient Instructions* Willam Estrada MD - 11/19/2023 5:47 PM EDT See if Edis is covered with your insurance. If not, in the [facility] documented in this encounterLicking [facility] Hospital03-12-2024 History of Present illness Narrative* Willam Estrada MD - 11/19/2023 5:21 PM EDT This note was created using Snapwireriter. Subjective Garland De Santiago is a 63 [...] DM type 2 (diabetes mellitus, type 2) ([facility]LY [facility]) Essential hypertension 05/23/2006 Hemorrhage of gastrointestinal tract, [...] Puffs as instructed every 4 hours asneeded. vqwgaq-tfydqyap-zhuwzaq (CREON 24) 24,000-76,000 -120,000 unit delayed release [...] Lymph 1.00 - 4.00 k/uL 4.52 (H) Edge[place]% % 5.8 Abs [place] <0.87 k/uL 0.77 Eosin% % 11.8 Abs [...] lipids. Willam Estrada MD documented in this encounterLicking Memorial Hospital03-04-2024 Instructions* Patient Instructions* Justyna Mora APRN.HOG FEEDER - 11/11/2023 11:39 AM EST SMOKING CESSATION [...] to quit. Smokefree.gov Web Address: www.smokefree.gov Phone: [employer] Web Address: www.lung.org [address] [place] , [place] Phone: Phone: [facility] Smoking Cessation Program https://[employer].[facility]/pteduc/docs/QuittingTobaccoUse.pdf CT Lung Screen Results The CT [...] to endocrinology. Others Lung Cancer Screening hotline: [phone] Lung Cancer Screening [phone] Billing Questions: or [email or web address] Specialist Providers: (Sarah Daley CNP; Tegan Thomason PA-C; Monica Castellon CNP; Janelle Feliz CNP, Soha Hollis CNP; Tran Duran CNP; Garland Martinez PA-C; Justyna Mora CNP; Kati Raymond CNP; Leonarda Edwards PA-C; Aparna Shah CNP; Claudia Mena CNP; Lori Ceballos CNP): [phone] documented in this encounterLicking Memorial Hospital03-04-2024 History of Present illness Narrative* Justyna Mora [...] Carries out light duty. Modified Medical Research Alpine Dyspnea Scale (MMRC) On level ground I [...] 12/13/2011 Colonoscopy repeat 10 years EGD W/O [facility] SPEC VARICIES INJ 02/22/2022 ESOPHAGOGASTRODUODENOSCOPY TRANSORAL DIAGNOSTIC 02/09/2016 EGD INCISE FINGER TENDON SHEATH Right 08/10/2021 Right ring trigger finger release JOINT REPLACEMENT HX LAPS ABD PRTM&OMENTUM DX W/WO SPEC BR/WA SPX Laparoscopy LAPS SURG CHOLECYSTECTOMY W/CHOLANGIOGRAPHY 10/07/2006 LIG/TRNSXJ FLP TUBE ABDL/VAG APPR UNI/BI Tubal ligation PAST SURGICAL HISTORY OF 06/22/2010 right knee arthroscopy- by Dr Dawson ([facility]) PAST SURGICAL HISTORY OF 04/27/2020 low back surgery at [facility];s/p L4 laminectomy, decompression of L4-5 canal stenosis with bilateral L4,L5 root foraminotomies TONSILLECTOMY PRIMARY/SECONDARY <AGE 12 Tonsillectomy VAGINAL HYSTERECTOMY UTERUS 250 GM/< Hysterectomy, vaginal for menorrhagia FAMILY HISTORY Problem Relation Age of Onset Hypertension Mother history of glaucoma Cervical Cancer Mother Asthma Mother Heart Father NE x 2 Cancer Father Lung, metastatic to [...] Puffs as instructed every 4 hours asneeded. ozaufv-jrmmqufs-yckrjgl (CREON 24) 24,000-76,000 -120,000 unit delayed release [...] or more of exposure): Other, [employer]-worked in [place] 5. Race: White 6. Education: High School [...] directly visualized the testing documented: 10/11/2021 LDCT [facility] Lung RADS category 1. Pt has [...] Function Testing: SPIROMETRY WITH DILATOR IF OBSTRUCTED ([id number]) - [facility] [address] [place] [address] Test Date: 2023-04-24 Pat Name: GARLAND DE SANTIAGO Department: Room: Gender: Female Accounts Receivable Coordinator: : 1960 Requested By: Order Number: [id number] Reading MD: Mona Corrigan MD Interpretive Statements [...] 14:09:47 EDT by Mona Corrigan MD ID: [id number] Name: GARLAND DE SANTIAGO Race: White Ht: [...] 4.88 FEF50/FIF50 0.44 90-100 FIVC (L) 2.87 HRO01-76 (L/sec) 1.13 1.09 2.19 3.68 51 Time [...] Six year risk for lung cancer: 8.38% Https://[email or web address]/[email or web address]/result/female_[email or web address]_yes_unknown [email or web address]://[email or web address]/[email or web address] I have determined that the patient [...] 11, 2023 11:31 AM documented in this encounterLicking Memorial Hospital03-04-2024 Procedure note* Lucy Chandra RPFT - 11/11/2023 [...] 2023 TIME: 11:02 AM documented in this encounterLicking Memorial Hospital03-04-2024 History of Present illness Narrative* Lucy Chandra RPFT - 11/11/2023 10:47 AM EST PULM FUNCTION SMARTBLOCK: Provider: Mona Corrigan MD Assisting Tech: Lucy Chandra RPFT Spirometry: 1 Exhaled Nitric Oxide: 1 documented in this encounterLicking Memorial Hospital03-01-2024 Miscellaneous Notes* Telephone Encounter - Nat Malik [...] you. Nat Malik LPN. documented in this encounterLicking Memorial Hospital02-27-2024 History of Present illness Narrative* Mona Corrigan MD - 11/05/2023 2:45 PM EST Images from the original note were not included. . Respiratory Dalton Note Patient name: Garland De Santiago PCP: Willam Estrada MD CC: Asthma HPI: Garland De Santiago 63 year old female current 34-lpte-njjz smoker with PMH significant for allergies, asthma, [...] Type 2 DM - Uncontrolled E11.65 Insulin:No fnigzt-nqmtcgux-fkqyypj (CREON 24) 24,000-76,000 -120,000 unit delayed release [...] Cervical Cancer Mother Asthma Mother Heart Father NE x 2 Cancer Father Lung, metastatic to [...] 12/13/2011 Colonoscopy repeat 10 years EGD W/O [facility] SPEC VARICIES INJ 02/22/2022 ESOPHAGOGASTRODUODENOSCOPY TRANSORAL DIAGNOSTIC 02/09/2016 EGD INCISE FINGER TENDON SHEATH Right 08/10/2021 Right ring trigger finger release JOINT REPLACEMENT HX LAPS ABD PRTM&OMENTUM DX W/WO SPEC BR/WA SPX Laparoscopy LAPS SURG CHOLECYSTECTOMY W/CHOLANGIOGRAPHY 10/07/2006 LIG/TRNSXJ FLP TUBE ABDL/VAG APPR UNI/BI Tubal ligation PAST SURGICAL HISTORY OF 06/22/2010 right knee arthroscopy- by Dr Dawson ([facility]) PAST SURGICAL HISTORY OF 04/27/2020 low back surgery at [facility];s/p L4 laminectomy, decompression of L4-5 canal stenosis [...] referral/repeat titration study Mona Corrigan MD Respiratory Dalton documented in this encounterLicking Memorial Hospital01-12-2024 Discharge summary Author Jono Castro [facility] September 20, 2023 7:39pm Note Date/Time September 20, 2023 6 :10pm [facility] Medical Records Department [address] [place] [address] Emergency Department Summary 09/20/23 MR#: [id number] Acct: [id number] Name: GARLAND DE SANTIAGO Rep #:[id number] : 1960 63 From: Jono Castro [...] it. Gait is normal. Coordination is normal. [facility] Medical History Abdominal pain Anxiety Anxiety and [...] #60 tabs 07/08/23 [Rx Last Taken Unknown] fpbuxr-ilifugob-nyiagig 24,000-76,000-120,000 unit capsule,delayed rel (Creon) 1cap PO [...] % (Auto) 54.3 Lymph % (Auto) 36.5 Edgefield % (Auto) 5.8 Eos % (Auto) 2.4 [...] 18:58 EST Reading Location ID and State: [facility] / [place] , Service support , Head CTA 09/20/23 18:35 IMPRESSION: Age consistent changes, no acute findings, no suspicious enhancing lesion Electronically Signed: Johnny Saucedo MD at 18:59 EST , Discharge Plan [...] your Primary Care Provider. Call [facility] ([phone]) or report to the closest Emergency Room. Call 911 if necessary. 09/20/231938 <Electronically signed by Jono Castro MD> Cosigner Signature (if applicable): CC: Dr. Willam Estrada MD ~ Signed [facility] Work Phone: [phone] Telephone encounter Note* Telephone Encounter - Karissa Armstrong - 09/12/2023 9:43 AM EST 3 rd attempt left message to return call to schedule consult for lung cancer screening. My chart message also sent [facility]01-04[facility]24 Miscellaneous Notes* Telephone Encounter - Karissa Armstrong [...] original note were not included. Justyna Mora APRN.HOG FEEDER You 4 days ago MH I placed an order for consult lung cancer screening. Please flight test supervisor her for that. She has not been [...] Does want to have done here at [facility]. Possibly need order to schedule? Transferred to scheduling. Tran Mcfadden LPN * Telephone Encounter - Vikki Oliveira MA - 08/30/2023 12:34 PM EST Images from the original note were not included. Leila Rubi PA-C This may be done at [facility]. Is she enrolled in the lung cancer screening program at [facility]? If so, they will order the LDCT. * Telephone Encounter - Yasmine Arias - 08/30/2023 10:31 AM EST Patient verified by name and . She is requesting an order be faxed to [facility] for her to schedule her yearly low dose lung cancer screening CT. Review and advise. documented in this encounterLicking Memorial Hospital01-02-2024 Telephone encounter Note * Telephone Encounter - Heather Giang - 09/10/2023 11:19 AM EST 2nd Attempt to call and schedule. LVM [facility]12-29-2023 Telephone encounter Note* Telephone Encounter - Karissa Armstrong - 09/06/2023 12:00 PM EST 1st attempt left message to return call to schedule consult for lung cancer screening [facility]12-26-2023 Telephone encounter Note* Telephone Encounter - Maria R Baig, HOWARD - 09/03/2023 10:08 AM EST Called and left VM informing the patient that we have the order and asking her to call back and schedule an appointment. Maria R Baig RN [facility]12-26-2023 Telephone encounter Note* Telephone Encounter - Tran Mcfadden LPN - 09/03/2023 8:44 AM EST Images from the original note were not included. Justyna Mora APRN.HOG FEEDER You 4 days ago MH I placed an order for consult lung cancer screening. Please flight test supervisor her for that. She has not been seen by our team. We will do an enrollment visit and then if she qualifies we will schedule her for her LDCT at a later time. Angela Justyna [facility]12-22-2023 Telephone encounter Note* Telephone Encounter - Yasmine Arias - 08/30/2023 3:26 PM EST Patient verified by name and . She will need an order placed to be able to schedule. Review and advise. [facility]12-22-2023 Telephone encounter Note* Telephone Encounter - Tran Mcfadden LPN - 08/30/2023 3:15 PM EST Called patient. Verified name and date of . Patient informed per message from Leila Rubi PA-C. Verbalizes understanding. Does want to have done here at [facility]. Possibly need order to schedule? Transferred to scheduling. Tran Mcfadden LPN [facility]12-22-2023 Telephone encounter Note* Telephone Encounter - Vikki Oliveira MA - 08/30/2023 12:34 PM EST Images from the original note were not included. Leila Rubi PA-C This may be done at [facility]. Is she enrolled in the lung cancer screening program at [facility]? If so, they will order the LDCT. [facility]12-22-2023 Telephone encounter Note* Telephone Encounter - Yasmine Arias - 08/30/2023 10:31 AM EST Patient verified by name and . She is requesting an order be faxed to [facility] for her to schedule her yearly low dose lung cancer screening CT. Review and advise. [facility]12-01-2023 Miscellaneous Notes* Telephone Encounter - Ashley Hernandez [...] you. Ashley Hernandez RN. documented in this encounterLicking Memorial Hospital11-14-2023 History of Present illness Narrative* Jennifer Castle [...] 23, 2023 4:52 PM documented in this encounterLicking Memorial Hospital11-14-2023 History of Present illness Narrative* Willam Estrada [...] DM type 2 (diabetes mellitus, type 2) ([facility]LY [facility]) Essential hypertension 05/23/2006 Hemorrhage of gastrointestinal tract, unspecified 12/13/2011 Had bleeding hemorrhoids in 2012; normal colonoscopy Internal hemorrhoids without mention of complication 12/13/2011 Mixed hyperlipidemia 05/23/2006 Obesity (BMI 30.0-34.9) YARY (obstructive sleep apnea) Uses BiPAP occasionally Other nonspecific abnormal finding 05/23/2006 CK Elevation Snoring Current Outpatient Medications Medication Sig ztcpuq-picnsplh-egrjoru (CREON 24) 24,000-76,000 -120,000 unit delayed release [...] the date of the service which included yvbo-yv-uwlf patient care, completing clinical documentation, obtaining and/or reviewing separately obtained history, performing a medically appropriate examination, counseling and educating the patient/family/caregiver, and ordering medications, tests, or procedures. Willam Estrada MD documented in this encounterLicking Memorial Hospital11-09-2023 Miscellaneous Notes* Telephone Encounter - Amy Marquez [...] feels jittery Protocols used: Blood Pressure - Jcbs-DHBXG-TG documented in this encounterLicking Memorial Hospital11-09-2023 History of Present illness Narrative* Rola Browne [...] of breath with activity? No Based on head of measurement & insights, the following disposition is advised: No symptoms or symptoms present, not severe. Routed to: No Action Needed LISA Education Provided this Outreach: No Rola Browne RN July 18, 2023 1:06 PM documented in this encounterLicking Memorial Hospital11-08-2023 History of Present illness Narrative* Rola Browne [...] her lasix and lisinopril Message received via: patient service rep Pool Contact made with patient: Yes The patient was identified by name and date of . Discussed Care with patient Based on head of measurement & insights, the following disposition is advised: No symptoms or symptoms present, not severe. Routed to: No Action Needed LISA Education Provided this Outreach: No Rola Browne RN July 17, 2023 3:58 PM documented in this encounterLicking Memorial Hospital10-26-2023 History of Present illness Narrative* January Fernández [...] EDT CDM ESCALATION Provider Action / FYI: [facility] escalation Pt has multiple concerns Requesting to [...] the next 7 days Message received via: patient service rep Pool Contact made with patient: Yes The patient was identified by name and date of . Discussed Care with patient Based on head of measurement & insights, the following disposition is advised: No symptoms [...] patient x1, left VM Message received via: patient service rep Pool Contact made with patient: No, left message. Rola Browne RN July 04, 2023 8:49 AM documented in this encounterLicking Memorial Hospital10-23-2023 Procedure [facility]10-23-2023 Procedure [facility]10-20-2023 Miscellaneous Notes* Telephone Encounter - Corinne Belle LPN - 06/28/2023 4:39 PM EDT Patient only has 6 strips left. Asking if this can be sent today. Please advise. documented in this encounterLicking Memorial Hospital10-19-2023 Discharge summary Author Corey Rubi [facility] June 28, 2023 12:29am Note Date/Time June 27, 2023 1 0:58pm [facility] Medical Records Department [address] [place] [address] Emergency Department Summary 06/27/23 MR#: [id number] Acct: [id number] Name: GARLAND DE SANTIAGO Rep #:[id number] : 1960 63 From: Corey Rubi [...] pressure prior to coming here and it amh651/130, which was concerning to her, she is [...] red blood per rectum. No urinary symptoms. [facility] Medical History Abdominal pain Anxiety Anxiety and [...] 40.1 L Lymph % (Auto) 48.9 H Edgefield % (Auto) 5.9 Eos % (Auto) 4.5 [...] your Primary Care Provider. Call [facility] ([phone]) or report to the closest Emergency Room. Call 911 if necessary. 06/28/2328 <Electronically signed by Corey Rubi MD> Cosigner Signature (if applicable): CC: Dr. Willam Estrada MD ~ Signed [facility] Work Phone: [phone]) 942-618109-25-2023 Miscellaneous Notes* Telephone Encounter - Lori Silver [...] be elevated too much. Patient's pharmacy is [facility]. Ashley Hernandez RN * Telephone Encounter - [...] advise, Ashley Hernandez RN documented in this encounterLicking Memorial Hospital09-22-2023 Instructions* Patient Instructions* Allegra Berumen APRN.CNP - 05/31/2023 2:27 PM EDT Check blood work. Start your Zyrtec daily for the next 2 weeks. Start using the hydroxyzine ER ordered as needed. Start Pepcid (famotidine) twice daily. Do oatmeal baths to help with itching. documented in this encounterLicking Memorial Hospital09-22-2023 History of Present illness Narrative* Allegra Berumen APRN.CNP - 05/31/2023 2:15 PM EDT SUBJECTIVE Garland De Santiago is a 62 year old female here today for a check up on her medical problems. Chief Complaint Patient presents with: ER F/U: [facility] ER pm 05/26/2023 and 05/30/2023 with [...] itching and hives. Seen in ED at [facility] and treated. Had fevers around 100.0 [...] Recurrent Major Depressive Disorder, in Remission ([facility]) Type 2 Diabetes Mellitus With Diabetic Neuropathy, Without Long-Term Current Use of Insulin ([facility]) -02/01/2017 Obesity (Bmi 30.0-34.9) Rhinitis - [...] appointment.. Allegra Berumen APRN-HEIDY documented in this encounterLicking Memorial Hospital09-19-2023 Instructions* Patient Instructions* Deena Ivey APRN.CNP - [...] or other serious complaints. documented in this encounterLicking Memorial Hospital09-19-2023 History of Present illness Narrative* Jennifer Castle [...] 28, 2023 6:39 PM documented in this encounterLicking Memorial Hospital09-19-2023 History of Present illness Narrative* Deena Ivey [...] history is provided by the patient. No data coordinator was used. Cough This is a new [...] 06/22/2010 right knee arthroscopy- by Dr Dawson ([facility]) PAST SURGICAL HISTORY OF 04/27/2020 low back surgery at [facility];s/p L4 laminectomy, decompression of L4-5 canal stenosis [...] Cervical Cancer Mother Asthma Mother Heart Father NE x 2 Cancer Father Lung, metastatic to [...] flags Deena Ivey APRN.HEIDY documented in this encounterLicking Memorial Hospital09-17-2023 Hospital Discharge instructions Additional Instructions Please list the drug category cephalosporins as a allergen from now on. Do not take the cefdinir that was prescribed secondary to your allergy. It will take typically 3 to 5 days for the allergic reaction to resolve and you may continue ucyb-ybo-wjtkfgg Benadryl for itch relief if needed. Your urine sample today shows no bacteria to indicate infection but the CT scan does show slight bladder wall thickening with surrounding inflammation which could be the cause of your recurrent pain. Secondary to this follow-up with urology to discuss further testing and treatment options and return to the ER should you have any further concernsWParkview [facility] Work Phone: [phone]) 310-512909-13-2023 Miscellaneous Notes* Telephone Encounter - Sriram Cabrales [...] persist. Sriram Cabrales, RN documented in this encounterLicking Memorial Hospital08-16-2023 History of Present illness Narrative* Janeen Leila [...] Is being followed by MIGUEL Savage, at [facility]. Has bloating and abdominal pain. Currently smoking [...] Cervical Cancer Mother Asthma Mother Heart Father NE x 2 Cancer Father Lung, metastatic to [...] 06/22/2010 right knee arthroscopy- by Dr Dawson ([facility]) PAST SURGICAL HISTORY OF 04/27/2020 low back surgery at [facility];s/p L4 laminectomy, decompression of L4-5 canal stenosis [...] present within the thoracic spine. LDCT, 10/2022 [facility] Lung RADS 2 Follow up LDCT in [...] necessary. Leila Rubi PA-C documented in this encounterLicking Memorial Hospital08-16-2023 History of Present illness Narrative* Lucy Chandra RPFT - 04/24/2023 1:08 PM EDT PULM FUNCTION SMARTBLOCK: Provider: Leila Rubi PA-C Assisting Tech: Lucy Chandra RPFT Spirometry: 1 DLCO: 1 documented in this encounterLicking Memorial Hospital07-06-2023 History of Present illness Narrative* Rola Browne [...] 15, 2023 12:08 PM documented in this encounterLicking Memorial Hospital07-03-2023 Miscellaneous Notes* Telephone Encounter - Karissa Collier RN - 03/11/2023 2:54 PM EDT Patient requesting ProAor inhaler, if provider agreeable. Script pended for review. Thank you. documented in this encounterLicking Memorial Hospital07-03-2023 Miscellaneous Notes* Telephone Encounter - Karissa Collier [...] supplies. Karissa Collier RN documented in this encounterLicking Memorial Hospital06-02-2023 Miscellaneous Notes* Telephone Encounter - Willam Estrada [...] you. Gillian Higginbotham RN documented in this encounterLicking Memorial Hospital04-22-[address] [facility] December 29, 2022 11:08pm Note Date/Time December 29, 2022 8:1 6pm [facility] Medical Records Department [address] [place] [address] Emergency Department Summary 12/29/22 MR#: [id number] Acct: [id number] Name: GARLAND DE SANTIAGO Rep #:[id number] : 1960 62 From: Booker Barrett [...] of breath and dyspnea with chest tightness. [facility] Medical History Abdominal pain Anxiety and depression [...] % (Auto) 55.6 Lymph % (Auto) 35.2 [place] % (Auto) 7.0 Eos % (Auto) 1.5 [...] 21:01 EDT Reading Location ID and State: [address] [place] [address] Tel [phone], Service support , Discharge Plan Triage Chief [...] problems, contact your Primary Care Provider. Call [employer] Registry ([phone]) or report to the closest Emergency Room. [...] cc: Dr. Willam Estrada MD ~* Signed [facility] Work Phone: [phone]) [phone] History of Present illness Narrative* Leila Rubi PA-C - 12/21/2022 1:30 PM EDT Patient: Garland De Santiago PCP: Willam Estrada MD CC: COPD/re-establish care HPI: Garland De Santiago 62 year old female current daily smoker, 36 pack years with PMH significant for allergic rhinitis, anxiety, depression, DM, HTN, hyperlipidemia, YARY not compliant with BiPAP, and emphysema. Patient was recently seen in [facility] on 11/21 for cough, SOB, wheezing and [...] DM type 2 (diabetes mellitus, type 2) ([facility]) Essential hypertension 05/23/2006 Hemorrhage of gastrointestinal tract, [...] Cervical Cancer Mother Asthma Mother Heart Father NE x 2 Cancer Father Lung, metastatic to [...] 06/22/2010 right knee arthroscopy- by Dr Dawson ([facility]) PAST SURGICAL HISTORY OF 04/27/2020 low back surgery at [facility];s/p L4 laminectomy, decompression of L4-5 canal stenosis [...] present within the thoracic spine. LDCT, 10/2022 [facility] Lung RADS 2 Follow up LDCT in [...] tobacco. Enrolled in lung cancer screening at [facility]. Next LDCT 10/2023. 3. Seasonal allergies - ICD9: 477.9, ICD10: J30.2 Follows with [facility] Portions of this documentation were copied and pasted from previous office visit notes in order to provide a cohesive continuity of the history. The note has been reviewed and edited and updated as necessary. Leila Rubi PA-C documented in this encounterLicking Memorial Hospital04-11-2023 Instructions* Patient Instructions* Willam Estrada MD - [...] inhaler instead of Breo. documented in this encounterLicking Memorial Hospital04-11-2023 History of Present illness Narrative* Willam Estrada MD - 12/18/2022 6:40 PM EDT This note was created using Snapwireriter. Subjective Garland De Santiago is a 62 [...] DM type 2 (diabetes mellitus, type 2) ([facility]) Essential hypertension 05/23/2006 Hemorrhage of gastrointestinal tract, [...] Encounter Diagnosis ICD-10-CM 1. COPD with exacerbation ([facility]) J44.1 CONSULT TO PULM/CRITICAL CARE 2. Itching L29.9 3. Sinobronchitis J32.9 J40 Improved; no need for another antibiotic. ENT for evaluation. Referred to pulmonology as well 4. Recurrent major depressive disorder, in remission ([facility]) F33.40 Stable on Zoloft. Above issues addressed [...] the date of the service which included ketb-pr-mwgv patient care, completing clinical documentation, performing a medically appropriate examination, counseling and educating the patient/family/caregiver, and ordering medications, tests, or procedures. Willam Estrada MD documented in this encounterLicking Memorial Hospital04-11-2023 Miscellaneous Notes* Telephone Encounter - Allegra Berumen [...] evening. Ashley Hernandez RN documented in this encounterLicking Memorial Hospital04-07-2023 Miscellaneous Notes* Telephone Encounter - Derick Goddard [...] 11:26 AM EDT See telephone encounter from [facility] last pm, pt calling with an update. Pt states she got up this am & ate a piece of toast with butter & took her morning meds. 4 hours later (now) she reports her blood sugar is 329. Pt states last night after speaking to [facility] she took another glipizide as instructed (3 for the day)& her blood sugar went down to 196. Pt states she is on day 5 of antibiotics & prednisone for bronchitis. She states she is not wheezing as bad as she was but still has productive cough, sinus headache & chest tightness. Pulse ox 98%. Please advise. Fabiana Hernandez LPN documented in this encounterLicking Memorial Hospital04-04-2023 Miscellaneous Notes* Telephone Encounter - Tex Herrera [...] na Protocols used: Diabetes - High Blood Ocytm-DOCBK-NO documented in this encounterLicking Memorial Hospital04-03-2023 Miscellaneous Notes* Telephone Encounter - Allegra Berumen [...] you. Oxana Soria LPN documented in this encounterLicking Memorial Hospital04-03-2023 Miscellaneous Notes* Telephone Encounter - Nat Malik LPN - 12/10/2022 10:33 AM EDT Patient calling she took her last pill last night. She was calling to make sure request got sent toPCP, rx [place] [facility]. Please advise Patient has been identified [...] you. Nat Malik LPN documented in this encounterLicking Memorial Hospital03-29-2023 History of Present illness Narrative* Willam Estrada MD - 12/05/2022 4:09 PM EDT This note was created using Snapwireriter. Subjective Garland De Santiago is a 62 [...] Bad sore throat around 11/17. Seen in [facility]. Doxy for 10 days--did not [...] DM type 2 (diabetes mellitus, type 2) (FORMERLY [facility]) Essential hypertension 05/23/2006 Hemorrhage of gastrointestinal tract, [...] neuropathy, without long-term current use of insulin ([facility]LY [facility]) E11.40 HGB A1C COMP METABOLIC PANEL ALBUMIN/CREAT RATIO RND UR 3. Essential hypertension I10 COMP METABOLIC PANEL CBC 4. Encounter for long-term current use of medication Z79.899 COMP METABOLIC PANEL CBC 5. Mixed hyperlipidemia E78.2 LIPID PANEL BASIC 6. Chronic obstructive pulmonary disease, unspecified COPD type ([facility]) J44.9 FHVPS-6-SNXEKOGFB BL 7. Neuropathy G62.9 gabapentin (NEURONTIN) 300 mg capsule DISCONTINUED: gabapentin (NEURONTIN) 300 mg capsule 8. Stage 2 moderate COPD by GOLD classification ([facility]LY [facility]) J44.9 fluticasone- vilanterol (BREO ELLIPTA) 200-25 mcg/dose [...] the date of the service which included segf-qr-urrn patient care, completing clinical documentation, obtaining and/or reviewing separately obtained history, performing a medically appropriate examination, counseling and educating the patient/family/caregiver, and ordering medications, tests, or procedures. Willam Estrada MD documented in this encounterLicking Memorial Hospital03-28-2023 History of Present illness Narrative* Sherie Kay [...] made with patient ACTION TAKEN: Based on head of measurement & insights, the following disposition is advised: SYMPTOMS PRESENT NOT SEVERE: No action required - Continue outreach / Phone Call - LISA Education Ordered -: No documented in this encounterLicking Memorial Hospital03-20-2023 Miscellaneous Notes* Addendum Note - Willam Estrada MD - 11/26/2022 7:23 PM EDTAddended by: WILLAM ESTRADA on: 11/26/2022 07:23 PM Modules accepted: Orders documented in this encounterLicking Memorial Hospital03-20-2023 History of Present illness Narrative* Willam Estrada MD - 11/26/2022 7:21 PM EDT Sent RX that was given from [facility] in 2017 after Robitussin AC did not help with cough. If not covered, can try the Robitussin AC again. The following approved medication requests have been transmitted electronically. Requested Prescriptions Signed Prescriptions Disp Refills Urdejpiraqcqevf-Sllflnhfu-ET (BROMFED DM) 2-30-10 mg/5 mL syrup 240 [...] made with patient ACTION TAKEN: Based on head of measurement & insights, the following disposition is advised: SYMPTOMS PRESENT NOT SEVERE: No action required - Continue outreach / Phone Call - LISA Education Ordered -: No documented in this encounterLicking Memorial Hospital03-15-2023 Miscellaneous Notes* Telephone Encounter - Willam Estrada [...] go to express care. documented in this encounterLicking Memorial Hospital03-15-2023 History of Present illness Narrative* Deena Ivey [...] history is provided by the patient. No data coordinator was used. Cough This is a new [...] DM type 2 (diabetes mellitus, type 2) ([facility]LY [facility]) Essential hypertension 05/23/2006 Hemorrhage of gastrointestinal tract, [...] 12/13/2011 Colonoscopy repeat 10 years EGD W/O [facility] SPEC VARICIES INJ 02/22/2022 ESOPHAGOGASTRODUODENOSCOPY TRANSORAL [...] HISTORY OF 04/27/2020 low back surgery at [facility];s/p L4 laminectomy, decompression of L4-5 canal stenosis [...] Cervical Cancer Mother Asthma Mother Heart Father NE x 2 Cancer Father Lung, metastatic to [...] days. Deena Ivey APRN.HEIDY documented in this encounterLicking Memorial Hospital02-01-2023 History of Present illness Narrative* Demond Love [...] 10, 2022 3:38 PM documented in this encounterLicking Memorial Hospital01-30-2023 Instructions* Patient Instructions* Willam Estrada MD - [...] your usual activities immediately. documented in this encounterLicking Memorial Hospital01-30-2023 History of Present illness Narrative* Willam Estrada MD - 10/08/2022 10:40 AM EST Images from the original note were not included. This note was created using O[employer] The[employer]. Subjective Garland De Santiago is a 62 [...] DM type 2 (diabetes mellitus, type 2) ([facility]LY [facility]) Essential hypertension 05/23/2006 Hemorrhage of gastrointestinal tract, [...] and assume there are 5 lumbar-type vertebrae. 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PSCB Transcribe Date/Time: Sep 27 2022 5:51P [...] intervention Willam Estrada MD documented in this encounterLicking Memorial Hospital01-23-2023 Miscellaneous Notes* Telephone Encounter - Cresencio Sharp Ma - 10/01/2022 9:40 AM EST Unable to reach after several attempts. Patient active on Nonabox, message sent * Telephone Encounter - Heather Giang - 09/25/2022 12:27 PM EST Called pt. LVM to schedule Urology consult * Telephone Encounter - Renu Barahona - 09/24/2022 8:40 AM ESTSummary: Consult to Urology 2nd Attempt: Called PT to schedule consult to urology, LVM for PT to call back and ask for a flight test supervisor. Thanks, GLADYS Valdez * Telephone Encounter - Renu Barahona - 09/21/2022 9:11 AM ESTSummary: Consult to Urology 1st Attempt: Called PT to schedule consult to urology, LVM for PT to call back and ask for a flight test supervisor. Renu Miller PSS * Telephone Encounter - Leilani Ramirez APRN.ALDAIR - 09/21/2022 7:13 AM EST There is an active urology consult. Use to schedule with alternate provider, [facility] provider if willing * Telephone Encounter - [...] medicaid. Ashley Hernandez RN documented in this encounterLicking Memorial Hospital01-19-2023 History of Present illness Narrative* Rebecca Howard, [...] 27, 2022 3:00 PM documented in this encounterLicking Memorial Hospital01-14-2023 History of Present illness Narrative* Rola Browne [...] made with patient ACTION TAKEN: Based on head of measurement & insights, the following disposition is advised: SYMPTOMS PRESENT NOT SEVERE: No action required - Continue outreach / Phone Call - LISA Education Ordered -: No documented in this encounterLicking Memorial Hospital01-11-2023 Miscellaneous Notes* Telephone Encounter - Sriram Cabrales RN - 09/19/2022 4:24 PM EST Patient says she received call from ELIU Varner to make a Urology appointment this afternoon. She wants to confirm referral was [facility], Dr. Pinto . Sriram Cabrales RN * Telephone Encounter - Derick Goddard LPN - 09/19/2022 3:41 PM EST Referral and records faxed to [facility] as requested. * Telephone Encounter - Allegra Berumen APRN.HEIDY - 09/19/2022 2:56 PM EST Referral placed, [...] gotten worse.Asking pcp to send referral to [facility]. Patient has already spoke to them and they will see her. Does not want to travel out of town to see a Urologist. documented in this encounterLicking Memorial Hospital01-09-2023 Miscellaneous Notes* Letter - Mammography Coordinator - 09/17/2022 8:08 AM EST September 17, 2022 PID: [id number] Garland De Santiago [facility] [address] [address] Dear Ms. De Santiago, We are pleased [...] report will be [facility] at [facility] as part of your permanent medical record and are available for your continuing care. Thank you for allowing us to help in meeting your health care needs. Sincerely, Dr. Tay Interpreting Radiologist [facility] (Normal over 40) documented in this encounterLicking Memorial Hospital01-06-2023 History of Present illness Narrative* Alpa Mack [...] 14, 2022 2:33 PM documented in this encounterLicking Memorial Hospital12-30-2022 Miscellaneous Notes* Telephone Encounter - Jonnathan Nagy LPN - 09/07/2022 2:40 PM EST Order faxed, patient notified. Jonnathan Nagy LPN * Telephone Encounter - Jonnathan Nagy LPN - 09/07/2022 1:45 PM EST Order prepped and on provider's desk for signature. Referral placed. Jonnathan Nagy LPN * Telephone Encounter - Vikki Oliveira - 09/07/2022 12:44 PM EST Pt calling to follow up on Nonabox message 08/09/2022 regarding orders for the low dose CT lung cancer screening. She does not drive out of town and is asking that the order be sent to [facility]. Vikki Oliveira documented in this encounterLicking Memorial Hospital12-29-2022 Miscellaneous Notes* Telephone Encounter - Willam Estrada [...] Suggest patient have a virtual visit with [facility] on line or My Chart [...] advise patient. Pended medication. documented in this encounterLicking Memorial Hospital12-17-2022 History of Present illness Narrative* Daphney Pro [...] DM type 2 (diabetes mellitus, type 2) ([facility]) Essential hypertension 05/23/2006 Hemorrhage of gastrointestinal tract, [...] 06/22/2010 right knee arthroscopy- by Dr Dawson ([facility]) PAST SURGICAL HISTORY OF 04/27/2020 low back surgery at [facility];s/p L4 laminectomy, decompression of L4-5 canal stenosis with bilateral L4,L5 root foraminotomies TONSILLECTOMY PRIMARY/SECONDARY <AGE 12 Tonsillectomy VAGINAL HYSTERECTOMY UTERUS 250 GM/< Hysterectomy, vaginal for menorrhagia Family History FAMILY HISTORY Problem Relation Age of Onset Hypertension Mother history of glaucoma Cervical Cancer Mother Asthma Mother Heart Father NE x 2 Cancer Father Lung, metastatic to [...] ER if worsening. Sent her hanyvid to PT [facility] 2. Severe persistent asthma, unspecified whether complicated - ICD9: 493.90, ICD10: J45.50 Mild intermittent Asthma stable - Avoidance of triggers recommended 3. Type 2 diabetes mellitus with diabetic neuropathy, without long-term current use of insulin (HCC) - ICD9: 250.60, 357.2, ICD10: E11.40 Her sugars are fairly well controlled. Daphney Pro MD documented in this encounterLicking Memorial Hospital12-16-2022 Miscellaneous Notes* Telephone Encounter - Alpa Cuellar [...] health visit. Assisted patient with downloading my [facility] juan manuel. GO TO THE EMERGENCY ROOM OR CALL 911 IF: * You develop any new symptoms * Your condition worsens * You are concerned or anxious about your condition for any other reason. If you have any questions, you can call Nurse international project manager back. documented in this encounterLicking Memorial Hospital12-16-2022 Miscellaneous Notes* Telephone Encounter - Divina Wright RN - 08/24/2022 5:17 PM EST Reason for Call:Covid sx and tested positive on home test Outcome:Recommended to go to ED now and will get ride to [facility]. Reason for Disposition Chest pain or [...] wheezing and productive cough- using inhaler 8. GOIAYW-WIQS-UDBDK: worse 9. HIGH RISK DISEASE: Asthma, immune compromised, DM, COPD, HTN 10. VACCINE: yes 11. BOOSTER: 3 rd booster Moderna on Saturday08/20/22 12. : n/a 13. OTHER SYMPTOMS: headache, sore throat, fatigue and body aches 14. O2 SATURATION MONITOR: 97 % pulse ox during call Protocols used: Coronavirus (COVID-19) Diagnosed or Oivphekfn-ISPFG-OF documented in this encounterLicking Memorial Hospital11-29-2022 Instructions* Patient Instructions* Willam Estrada MD - [...] May keep taking Metformin. documented in this encounterLicking Memorial Hospital11-29-2022 History of Present illness Narrative* Willam Estrada MD - 08/07/2022 3:32 PM EST Images from the original note were not included. This note was created using RegistryLove. Subjective Garland De Santiago is a 62 [...] 02/10/2007 Anxiety Arthritis Asthma 02/10/2007 Centrilobular emphysema ([facility]) Depression Psychiatrist managing (Dr. Bedolla) DM type 2 (diabetes mellitus, type 2) ([facility]) Essential hypertension 05/23/2006 Hemorrhage of gastrointestinal tract, [...] 12/13/2011 Colonoscopy repeat 10 years EGD W/O [facility] SPEC VARICIES INJ 02/22/2022 ESOPHAGOGASTRODUODENOSCOPY TRANSORAL DIAGNOSTIC 02/09/2016 EGD INCISE FINGER TENDON SHEATH Right 08/10/2021 Right ring trigger finger release JOINT REPLACEMENT HX LAPS ABD PRTM&OMENTUM DX W/WO SPEC BR/WA SPX Laparoscopy LAPS SURG CHOLECYSTECTOMY W/CHOLANGIOGRAPHY 10/07/2006 LIG/TRNSXJ FLP TUBE ABDL/VAG APPR UNI/BI Tubal ligation PAST SURGICAL HISTORY OF 06/22/2010 right knee arthroscopy- by Dr Dawson ([facility]) PAST SURGICAL HISTORY OF 2019 low back surgery at [facility] TONSILLECTOMY PRIMARY/SECONDARY <AGE 12 Tonsillectomy VAGINAL HYSTERECTOMY [...] indicated. Willam Estrada MD documented in this encounterLicking Memorial Hospital11-28-2022 Miscellaneous Notes* Telephone Encounter - Willam Estrada [...] advise. Derick Goddard LPN documented in this encounterLicking Memorial Hospital11-11-2022 Miscellaneous Notes* Telephone Encounter - Lori Silver RN - 07/20/2022 3:44 PM EST Alyce with [facility] called in to see if Pt was on a Statin. She was notified that Pt os not. She asked if it was on her allergy list, and it is not. documented in this encounterLicking Memorial Hospital11-07-2022 History of Present illness Narrative* Sylwia Harrison [...] 16, 2022 3:04 PM documented in this encounterLicking Memorial Hospital11-03-2022 Miscellaneous Notes* Telephone Encounter - Willam Estrada [...] you. Nat Malik LPN documented in this encounterLicking Memorial Hospital10-31-2022 Miscellaneous Notes* Telephone Encounter - Karissa Collier RN - 07/09/2022 1:40 PM EDT Patient returned call and given provider's message below. Patient transferred to flight test supervisor to schedule ultrasounds. Wes Collier RN * [...] care Diana Andres APRN.CNP documented in this encounterLicking Memorial Hospital10-27-2022 History of Present illness Narrative* Diana Andres [...] DM type 2 (diabetes mellitus, type 2) ([facility]) Essential hypertension 05/23/2006 Hemorrhage of gastrointestinal tract, [...] 06/22/2010 right knee arthroscopy- by Dr Dawson ([facility]) PAST SURGICAL HISTORY OF 2019 low back surgery at [facility] TONSILLECTOMY PRIMARY/SECONDARY <AGE 12 Tonsillectomy VAGINAL HYSTERECTOMY [...] Cervical Cancer Mother Asthma Mother Heart Father NE x 2 Cancer Father Lung, metastatic to [...] plan. Diana Andres APRN.CNP documented in this encounterLicking Memorial Hospital10-26-2022 Miscellaneous Notes* Telephone Encounter - Diana Andres APRN.CNP - 07/04/2022 7:12 PM EDT Noted. Will review in appointment. Thank you Diana Andres APRN.CNP * Telephone Encounter - Nat Malik LPN - 07/04/2022 1:08 PM EDT Patient calling said she was in [facility] ER 07/02 her blood sugars was [...] toast with butter. Scheduled patient appt with SPECIAL EDUCATION PROFESSOR 07/05 at 120 pm, she has seen Diana Andres few times recently, requesting her again. documented in this encounterLicking Memorial Hospital10-24-2022 History of Present illness Narrative* Diana Andres, SUPPLY CHAIN PROGRAM MANAGER.HOG FEEDER - 07/02/2022 11:54 AM EDT P CC: [...] DM type 2 (diabetes mellitus, type 2) ([facility]) Essential hypertension 05/23/2006 Hemorrhage of gastrointestinal tract, [...] 12/13/2011 [facility] 02/22/2022 ESOPHAGOGASTRODUODENOSCOPY TRANSORAL DIAGNOSTIC 02/09/2016 EGD INCISE FINGER TENDON SHEATH Right 08/10/2021 Right ring trigger finger release JOINT REPLACEMENT HX LAPS ABD PRTM&OMENTUM DX W/WO SPEC BR/WA SPX Laparoscopy LAPS SURG CHOLECYSTECTOMY W/CHOLANGIOGRAPHY 10/07/2006 LIG/TRNSXJ FLP TUBE ABDL/VAG APPR UNI/BI Tubal ligation PAST SURGICAL HISTORY OF 06/22/2010 right knee arthroscopy- by Dr Dawson ([facility]) PAST SURGICAL HISTORY OF 2019 low back surgery at [facility] TONSILLECTOMY PRIMARY/SECONDARY <AGE 12 Tonsillectomy VAGINAL HYSTERECTOMY [...] Cervical Cancer Mother Asthma Mother Heart Father NE x 2 Cancer Father Lung, metastatic to [...] plan. Diana Andres APRN.CNP documented in this encounterLicking Memorial Hospital10-19-2022 History of Present illness Narrative* Diana Andres [...] 02/10/2007 Anxiety Arthritis Asthma 02/10/2007 Centrilobular emphysema ([facility]) Depression Psychiatrist managing (Dr. Bedolla) DM type 2 (diabetes mellitus, type 2) ([facility]) Essential hypertension 05/23/2006 Hemorrhage of gastrointestinal tract, [...] 12/13/2011 Colonoscopy repeat 10 years EGD W/O [facility] SPEC VARICIES INJ 02/22/2022 ESOPHAGOGASTRODUODENOSCOPY TRANSORAL DIAGNOSTIC 02/09/2016 EGD INCISE FINGER TENDON SHEATH Right 08/10/2021 Right ring trigger finger release JOINT REPLACEMENT HX LAPS ABD PRTM&OMENTUM DX W/WO SPEC BR/WA SPX Laparoscopy LAPS SURG CHOLECYSTECTOMY W/CHOLANGIOGRAPHY 10/07/2006 LIG/TRNSXJ FLP TUBE ABDL/VAG APPR UNI/BI Tubal ligation PAST SURGICAL HISTORY OF 06/22/2010 right knee arthroscopy- by Dr Dawson ([facility]) PAST SURGICAL HISTORY OF 2019 low back surgery at [facility] TONSILLECTOMY PRIMARY/SECONDARY <AGE 12 Tonsillectomy VAGINAL HYSTERECTOMY [...] Cervical Cancer Mother Asthma Mother Heart Father NE x 2 Cancer Father Lung, metastatic to [...] plan. Diana Andres APRN.CNP documented in this encounterLicking Memorial Hospital10-19-2022 Miscellaneous Notes* Telephone Encounter - Diana Andres APRN.CNP - 06/27/2022 10:53 AM EDT Will review at appointment Diana Andres APRN.CNP * Telephone Encounter - Lori Silver RN - 06/27/2022 9:20 AM EDT Pt called and is notified of providers message and instructions. Pt voices understanding. Pt scheduled with Diana Andres SPECIAL EDUCATION PROFESSOR today at 440 pm, will get chest [...] has chest congestion. Patient was seen at [facility] on 06/22/2022. Patient was prescribed Macrobid [...] advise, Ashley Hernandez RN documented in this encounterLicking Memorial Hospital10-18-2022 History of Present illness Narrative* Rola Browne [...] made with patient ACTION TAKEN: Based on head of measurement & insights, the following disposition is advised: SYMPTOMS PRESENT NOT SEVERE: No action required - Continue outreach / Phone Call documented in this encounterLicking Memorial Hospital10-14-2022 History of Present illness Narrative* Rufus Cruz PA-C - 06/22/2022 3:44 PM EDT This note was created using Snapwireriter. Subjective Garland De Santiago is a 62 [...] 12/13/2011 [facility] 02/22/2022 ESOPHAGOGASTRODUODENOSCOPY TRANSORAL DIAGNOSTIC 02/09/2016 EGD INCISE FINGER TENDON SHEATH Right 08/10/2021 Right ring trigger finger release JOINT REPLACEMENT HX LAPS ABD PRTM&OMENTUM DX W/WO SPEC BR/WA SPX Laparoscopy LAPS SURG CHOLECYSTECTOMY W/CHOLANGIOGRAPHY 10/07/2006 LIG/TRNSXJ FLP TUBE ABDL/VAG APPR UNI/BI Tubal ligation PAST SURGICAL HISTORY OF 06/22/2010 right knee arthroscopy- by Dr Dawson ([facility]) PAST SURGICAL HISTORY OF 2019 low back surgery at [facility] TONSILLECTOMY PRIMARY/SECONDARY <AGE 12 Tonsillectomy VAGINAL HYSTERECTOMY [...] Cervical Cancer Mother Asthma Mother Heart Father NE x 2 Cancer Father Lung, metastatic to [...] rest Rufus Cruz PA-C documented in this encounterLicking Memorial Hospital10-03-2022 Miscellaneous Notes* Telephone Encounter - Mirlande Amin [...] patient. Faye Morales Pss documented in this encounterLicking Memorial Hospital09-06-2022 History of Present illness Narrative* Sherie Kay RN - 05/15/2022 2:30 PM EDT INSIGHT CDM ESCALATION Provider Action/FYI: LMOM Message received via: InSight - No contact made with patient Left Message for PatientJordan Martinez my name is Sherie Olsen RN from the [facility]. I amcalling about your responses to our InSight Home Monitoring questionnaire. Sorry I am not able to speak with you. If you have a problem that needs to be addressed by your physician please contact your PCP office--End Outreach documented in this encounterLicking Memorial Hospital08-30-2022 History of Present illness Narrative* Steven Yunier, [...] 15 sec each leg - Not assessed [place] in home exercise program. - MET so [...] Patient to be seen for Therapeutic exercise (88820);Neuromuscular re-education (16433);Manual therapy (97415);Self-fpc management (75284);Patient/Family/Caregiver Education PLAN FOR NEXT VISIT: Balance training [...] 40 Steven Faye PT documented in this encounterLicking Memorial Hospital08-11-2022 History of Present illness Narrative* Steven Faye [...] 60 Steven Faye PT documented in this encounterLicking Memorial Hospital08-09-2022 History of Present illness Narrative* Steven Faye [...] 39 Steven Faye PT documented in this encounterLicking Memorial Hospital08-03-2022 Miscellaneous Notes* Telephone Encounter - Ann Garcia [...] notify patient. Chelsie Cruz documented in this encounterLicking Memorial Hospital08-02-2022 History of Present illness Narrative* Steven Faye [...] SL stance for 15 sec each leg [place] in home exercise program. Increased strength of LE to 5/5 for improved lumbo-pelvic stability and decreased back pain Pt will be able to maintain good posture for 80% or greater of a treatment session Planned Interventions, Frequency, and Duration: Current Frequency: 2x/week Duration: 4 weeks Total Number of Visits Planned: 8 Planned Treatment Interventions: Therapeutic exercise (83572);Neuromuscular re- education (03565);Manual therapy (35686);Self-fpc management (70387);Patient/Family/Caregiver Education PLAN FOR NEXT VISIT: Progress TA [...] 45 Steven Faye PT documented in this encounterLicking Memorial Hospital07-29-2022 History of Present illness Narrative* Willam Estrada MD - 04/06/2022 2:42 PM EDT This note was created using Snapwireriter. Subjective Garland De Santiago is a 61 [...] THERAPY Willam Estrada MD documented in this encounterLicking Memorial Hospital07-05-2022 History of Present illness Narrative* Jennifer Castle, [...] 13, 2022 12:21 PM documented in this encounterLicking Memorial Hospital07-01-2022 History of Present illness Narrative* Lori Matamoros [...] VISIT - ENDOSCOPY NAME: Garland Kohli Anyi [facility] NO.: [id number] DATE OF SERVICE: 03/09/2022 : 1960 REFERRING [...] which included preparing to see the patient, [id number] patient care, completing clinical documentation, obtaining and/or reviewing separately obtained history, counseling and educating the patient/family/caregiver, independently interpretin g results (not separately reported) and communicating results to the patient/family/caregiver. Lori Matamoros PA-C documented in this encounterLicking [facility]06-27-2022 Miscellaneous Notes* Telephone Encounter - Itzel Foster [...] 02-22-2022 COLON EGD LODI documented in this encounterLicking [facility] Hospital06-17-2022 Miscellaneous Notes* Telephone Encounter - Willam Estrada [...] pharmacy. Cresencio Sharp Ma documented in this encounterLicking Memorial Hospital06-16-2022 History and physical note * Patti Manrique [...] was evaluated at the gastroenterology office at [place]. The following workup was done (information obtained from [facility]) 12/22/2021 - CT scan - liver steatosis [...] 06/22/2010 right knee arthroscopy- by Dr Dawson ([facility]) PAST SURGICAL HISTORY OF 2019 low back surgery at [facility] TONSILLECTOMY PRIMARY/SECONDARY <AGE 12 Tonsillectomy VAGINAL HYSTERECTOMY [...] Cervical Cancer Mother Asthma Mother Heart Father NE x 2 Cancer Father Lung, metastatic to bone, age 77 other (aortic aneurysm) Father 50 Colon Polyps Sister Thyroid Sister Hypothyroidism Thyroid Sister Cancer Sister Lung, LLL. Resected. No Known Problems Daughter No Known Problems Son The review of systems data was entered by the nurse and reviewed by ut Nursing Notes: Tex Harris LPN 02/09/2022 2:27 [...] bloating (M62.08) Rectus diastasis documented in this encounterLicking Memorial Hospital06-16-2022 Miscellaneous Notes* Brief Op Note - Patti Manrique MD - 02/22/2022 12:30 PM EDT BRIEF OPERATIVE NOTE SURGERY DATE: 02/22/2022 Incision/Procedure Start Time: 12:42 Incision Close/Procedure End Time: 13:15 (cecal intubation time 13:00) Surgeon(s)/Proceduralist(s) and Oil And Gas Drafter(s): Burton Procedures: EGD with biopsies Colonoscopy with [...] 2022 TIME: 1:17 PM documented in this encounterLicking Memorial Hospital06-04-2022 History of Present illness Narrative* Patti Manrique [...] was evaluated at the gastroenterology office at [place]. The following workup was done (information obtained from [facility]) 12/22/2021 - CT scan - liver steatosis [...] 06/22/2010 right knee arthroscopy- by Dr Dawson ([facility]) PAST SURGICAL HISTORY OF 2019 low back surgery at [facility] TONSILLECTOMY PRIMARY/SECONDARY <AGE 12 Tonsillectomy VAGINAL HYSTERECTOMY [...] Cervical Cancer Mother Asthma Mother Heart Father NE x 2 Cancer Father Lung, metastatic to [...] to Clinic: The patient is scheduled at [facility] on February 22 for upper and lower endoscopies. . Medical Decision Making: Problems: Low: Acute, uncomplicated illness or injury Data: Unique source(s) for external note(s) reviewed: 1 Risk: Low: Low risk from testing/treatment Medical Decision Making Level: 3 - Low Patti Manrique MD documented in this encounterLicking Memorial Hospital06-03-2022 Instructions* Patient Instructions* Patti Manrique MD - [...] If you do not have a responsible residential recycle driver (family member or friend) with you to [...] your exam. 3 08/2019 documented in this encounterLicking Memorial Hospital06-03-2022 Nurse Note* Tex Harris, CHRIS - 02/09/2022 2:25 PM EDT [...] 2011 Tex Harris LPN documented in this encounterLicking Memorial Hospital05-31-2022 History of Present illness Narrative* Felipe Jolly APRN.HOG FEEDER - 02/06/2022 2:31 PM EDT Subjective HPI [...] currently under this care of [facility] GI specialist. States she is currently under the care of [place] for bloating/abdominal pain. Patient states she did [...] 06/22/2010 right knee arthroscopy- by Dr Dawson ([facility]) PAST SURGICAL HISTORY OF 2019 low back surgery at [facility] TONSILLECTOMY PRIMARY/SECONDARY <AGE 12 Tonsillectomy VAGINAL HYSTERECTOMY [...] Cervical Cancer Mother Asthma Mother Heart Father NE x 2 Cancer Father Lung, metastatic to [...] of care. This note was generated using [employer] software. It may contain errors in wording, punctuation, or spelling. Felipe Jolly APRN.HEIDY documented in this encounterLicking Memorial Hospital05-31-2022 Miscellaneous Notes* Telephone Encounter - Odilia Costello [facility] - 02/06/2022 10:17 AM EDT Pharmacy MyChart Wood Box Maker Outreach Patient completed MyChart Wood Box Maker questionnaire; notification routed to Pharmacy pool for [...] RPh 02/06/2022, 10:18 AM documented in this encounterLicking Memorial Hospital05-12-2022 History of Present illness Narrative* Leila Rubi PA-C - 01/18/2022 2:38 PM EDT [facility] [place], 01/18/2022: Name: Garland De Santiago : 1960 [...] and weekly immunotherapy per Dr. Salazar at [facility]. No dyspnea at rest. Exertional dyspnea is a little worse since last OV. No lower extremity edema. Describes mid-sternal chest burning. Was evaluated by cardiology (Dr. Villegas) at [facility]. Has echocardiogram and stress test [...] / Diagnostic Studies: Low-dose chest CT from [facility]: Mild upper lobe emphysema Coronary artery calcifications [...] she sees any benefits. Allergy immunotherapy for [facility]. - FLUTICASONE FUROATE 200 MCG-VILANTEROL 25 MCG/DOSE [...] answers. Leila Rubi PA-C documented in this encounterLicking Memorial Hospital05-03-2022 History of Present illness Narrative* Willam Estrada MD - 01/09/2022 2:05 PM EDT This note was created using RegistryLove. Subjective Garland De Santiago is a 61 year old female. Patient presents with: Hematuria SUBJECTIVE: Garland De Santiago is a 61 year old year old lady here today for follow up appointment for review ofmedical conditions--hematuria and urinary bladder pain after urination. Frequency and urgency several times an hour. Only one other ladder infection in her life before. Was dark blood starting today.[place] when wipes after urinating. Also noted sediment [...] Judgment: Judgment normal. Urine dip shows: Blood--large [place] Trace Rest negative. Spec Grav 1.020 Assessment [...] discussed. Willam Estrada MD documented in this encounterLicking Memorial Hospital04-11-2022 History of Present illness Narrative* Kimmy Mariscal RN - 12/18/2021 11:41 AM EDT [facility] CDM Enrollment Provider Action/FYI: Enrolled in program via smartphone. Patient referred by: [facility] Shahla Contact made with patient: Yes - Patient identified by name and . Discussed care with patient Juan this is Kimmy Mariscal RN and I am calling from Willam Estrada MD office [facility] the [facility]. I am a RN Rn Embedded with our [facility] Chronic Disease Management program. [...] few questions once a week through your Fittr account. It will automatically show up for [...] goal align with programs offered at the [facility]? No Patient accepts managed care coordinator Thank you for your time today. I am excited to work together in managing your health! You will receive information on next steps through your Fittr account, and I will check back within a few weeks to ensure you have all that you need to use the program successfully. (Place name in care team and assign Fittr Wood Box Maker questionnaire) Most people know what to do to become healthier, yet struggle to put it into action on their own.Itcan be hard to maintain a healthy lifestyle, especially when life is so stressful. Can we connect you with a [facility] Trust Manager to find a program that could help you meet your goals? No Closing: Patient accepts managed care coordinator Thank you for your time today. I am excited to work together in managing your health! You will receive information on next steps through your Fittr account, and I will check back within a few weeks to ensure you have all that you need to use the program successfully. (Place name in care team and assign Fittr Wood Box Maker questionnaire) documented in this encounterLicking Memorial Hospital04-06-2022 History of Present illness Narrative* Kimmy Mariscal RN - 12/13/2021 4:12 PM EDT PRIMARY CARE COORDINATION QUICK NOTE Provider Action/FYI Insight intro message sent. Patient identified by name and date . documented in this encounterLicking Memorial Hospital04-01-2022 Miscellaneous Notes* Telephone Encounter - Keshia Diaz LPN - 12/08/2021 4:01 PM EDT Spoke with Sylwia from [place] and gave her providers message and she verbalized understanding. * Telephone Encounter - Leilani Ramirez APRN.CNS - 12/08/2021 3:36 PM EDT ok * Telephone Encounter - Gillian Higginbotham RN - 12/08/2021 11:55 AM EDT Sylwia from [place] calls back to ask if it is ok to fill gabapentin today also d/t being closed tomorrow on fill date. Please review and advise, Gillian Higginbotham RN * Telephone Encounter - Ashley Hernandez RN - 12/08/2021 11:52 AM EDT Sylwia from [place] pharmacy calls and is asking if it is ok to refill alprazolam today. They are closed tomorrow on the fill date. Please review and advise, Ashley Hernandez RN documented in this encounterLicking Memorial Hospital03-28-2022 Instructions* Patient Instructions* Willam Estrada MD - 12/04/2021 5:33 PM EDT Avoid high fructose corn syrup and too much foods with fructose. Avoid too much lactose containing foods. Consider Beano with vegetables. May take Gas X (simethicone) with each meal and bedtime routinely. Take when eat.. Take Lactaid with anything with milk products. documented in this encounterLicking Memorial Hospital03-28-2022 History of Present illness Narrative* Willam Estrada MD - 12/04/2021 5:00 PM EDT This note was created using [employer]ure Therapeuticster. Subjective Garland De Santiago is a 61 [...] hours. Will go to Dr. [facility] in [place]. Prefers to keep care in [place]. Also gets woozy if closes eyes in shower. Some lactose intolerance. PAST MEDICAL HISTORY Diagnosis Date Allergic rhinitis, cause unspecified 02/10/2007 Anxiety Arthritis Asthma 02/10/2007 Centrilobular emphysema (HCC) Depression Psychiatrist managing (Dr. Bedolla) DM type 2 (diabetes mellitus, type 2) ([facility]) Essential hypertension 05/23/2006 Hemorrhage of gastrointestinal tract, [...] indicated. Willam Estrada MD documented in this encounterLicking Memorial Hospital12-06-2021 History of Present illness Narrative* Jennifer Castle [...] 14, 2021 4:08 PM documented in this encounterLicking Memorial Hospital07-14-2021 History of Present illness Narrative* Demond Love [...] 22, 2021 7:24 PM documented in this encounterLicking Memorial Hospital12-09-2020 History of Present illness Narrative* Saba Heller [...] PERIPHERAL IV DATA: Not applicable SIGNED BY: Paolma Randle August 17, 2020 3:26 PM documented in this encounterLicking Memorial Hospital08-19-2020 History of Past illness Narrative* Problem Noted [...] of this encounter (statuses as of 12/08/2021) [facility] Narrative* Problem Noted [...] of this encounter (statuses as of 12/13/2021) [facility] Narrative* Problem Noted [...] of this encounter (statuses as of 12/13/2021) [facility] Narrative* Problem Noted [...] of this encounter (statuses as of 12/18/2021) [facility] Narrative* Problem Noted [...] of this encounter (statuses as of 01/18/2022) [facility] Narrative* Problem Noted [...] of this encounter (statuses as of 02/06/2022) [facility] Narrative* Problem Noted [...] of this encounter (statuses as of 02/06/2022) [facility] Narrative* Problem Noted [...] of this encounter (statuses as of 02/11/2022) [facility] Narrative* Problem Noted [...] of this encounter (statuses as of 02/19/2022) [facility] Narrative* Problem Noted [...] of this encounter (statuses as of 02/23/2022) [facility] N[facility]ative* Problem Noted [...] of this encounter (statuses as of 02/23/2022) [facility] N[facility]ative* Problem Noted [...] of this encounter (statuses as of 02/24/2022) [facility] N[facility]* Problem Noted [...] of this encounter (statuses as of 03/05/2022) [facility]* Problem Noted [...] of this encounter (statuses as of 03/08/2022) [facility]* Problem Noted [...] of this encounter (statuses as of 03/13/2022) [facility]* Problem Noted [...] of this encounter (statuses as of 03/30/2022) [facility]* Problem Noted [...] of this encounter (statuses as of 04/10/2022) [facility]* Problem Noted [...] of this encounter (statuses as of 04/11/2022) [facility]* Problem Noted [...] of this encounter (statuses as of 04/17/2022) [facility]* Problem Noted [...] of this encounter (statuses as of 04/19/2022) [facility]* Problem Noted [...] of this encounter (statuses as of 05/08/2022) [facility]* Problem Noted [...] of this encounter (statuses as of 05/15/2022) [facility]* Problem Noted [...] of this encounter (statuses as of 06/12/2022) [facility]* Problem Noted [...] of this encounter (statuses as of 06/16/2022) [facility]* Problem Noted [...] of this encounter (statuses as of 06/22/2022) [facility]* Problem Noted [...] of this encounter (statuses as of 06/26/2022) [facility]* Problem Noted [...] of this encounter (statuses as of 06/27/2022) [place] [address]-19-2020 History of Past illness Narrative* Problem Noted [...] of this encounter (statuses as of 06/27/2022) [facility]* Problem Noted [...] of this encounter (statuses as of 07/02/2022) [facility]* Problem Noted [...] of this encounter (statuses as of 07/04/2022) [facility]* Problem Noted [...] of this encounter (statuses as of 07/05/2022) [facility]* Problem Noted [...] of this encounter (statuses as of 07/09/2022) [facility]* Problem Noted [...] of this encounter (statuses as of 07/13/2022) [facility]* Problem Noted [...] of this encounter (statuses as of 07/20/2022) [facility]* Problem Noted [...] of this encounter (statuses as of 08/06/2022) [facility]* Problem Noted [...] of this encounter (statuses as of 08/10/2022) [facility]* Problem Noted [...] of this encounter (statuses as of 08/24/2022) [facility]* Problem Noted [...] of this encounter (statuses as of 08/25/2022) [facility]* Problem Noted [...] of this encounter (statuses as of 08/25/2022) [facility] Problem Noted [...] of this encounter (statuses as of 09/12/2022) [facility]* Problem Noted [...] of this encounter (statuses as of 09/13/2022) [facility]* Problem Noted [...] of this encounter (statuses as of 09/19/2022) [facility] Problem Noted [...] of this encounter (statuses as of 09/19/2022) [facility] Problem Noted [...] of this encounter (statuses as of 09/23/2022) [facility] Problem Noted [...] of this encounter (statuses as of 10/01/2022) [facility] Problem Noted [...] of this encounter (statuses as of 10/08/2022) [facility] Problem Noted [...] of this encounter (statuses as of 11/22/2022) [facility] Problem Noted [...] of this encounter (statuses as of 11/22/2022) [facility] Problem Noted [...] of this encounter (statuses as of 11/26/2022) [facility] Problem Noted [...] of this encounter (statuses as of 12/05/2022) [facility] Problem Noted [...] of this encounter (statuses as of 12/10/2022) [facility] Problem Noted [...] of this encounter (statuses as of 12/11/2022) [facility] Problem Noted [...] of this encounter (statuses as of 12/12/2022) [facility] Problem Noted [...] of this encounter (statuses as of 12/14/2022) [facility] Problem Noted [...] of this encounter (statuses as of 12/19/2022) [facility] Problem Noted [...] of this encounter (statuses as of 12/22/2022) [facility] Problem Noted [...] of this encounter (statuses as of 01/03/2023) [facility] Problem Noted [...] of this encounter (statuses as of 01/07/2023) [facility] Problem Noted [...] of this encounter (statuses as of 01/14/2023) [facility] Problem Noted [...] of this encounter (statuses as of 02/08/2023) [facility] Problem Noted [...] of this encounter (statuses as of 03/11/2023) [facility] Problem Noted [...] of this encounter (statuses as of 03/12/2023) [facility] Problem Noted [...] of this encounter (statuses as of 03/15/2023) [facility] Problem Noted [...] of this encounter (statuses as of 04/25/2023) [facility] Problem Noted [...] of this encounter (statuses as of 04/25/2023) [facility] Problem Noted [...] of this encounter (statuses as of 05/24/2023) [facility] Problem Noted [...] of this encounter (statuses as of 05/29/2023) [facility] Problem Noted [...] of this encounter (statuses as of 06/01/2023) [address]19-[address] History of Past illness Narrative* Problem [...] of this encounter (statuses as of 06/04/2023) [facility] Problem Noted [...] of this encounter (statuses as of 06/28/2023) [facility] Problem Noted [...] of this encounter (statuses as of 07/04/2023) [facility] Problem Noted [...] of this encounter (statuses as of 07/14/2023) [facility] Problem Noted [...] of this encounter (statuses as of 07/14/2023) [facility] Problem Noted [...] of this encounter (statuses as of 07/14/2023) [facility] Problem Noted [...] of this encounter (statuses as of 07/18/2023) [facility] Problem Noted [...] of this encounter (statuses as of 07/19/2023) [facility] Problem Noted [...] of this encounter (statuses as of 07/19/2023) [facility] Problem Noted [...] of this encounter (statuses as of 08/09/2023) [facility] Problem Noted [...] of this encounter (statuses as of 08/19/2023) [facility] Problem Noted [...] of this encounter (statuses as of 11/06/2023) [facility] Problem Noted [...] of this encounter (statuses as of 11/08/2023) [facility] Problem Noted [...] of this encounter (statuses as of 11/11/2023) [facility] Problem Noted [...] of this encounter (statuses as of 11/11/2023) [facility] Problem Noted [...] of this encounter (statuses as of 11/21/2023) [facility]* Problem Noted [...] of this encounter (statuses as of 11/21/2023) [facility]* Problem Noted [...] of this encounter (statuses as of 11/23/2023) [facility]* Problem Noted [...] of this encounter (statuses as of 11/26/2023) [address]19-[address] History of Past illness Narrative* Problem [...] of this encounter (statuses as of 12/09/2023) [facility]* Problem Noted [...] of this encounter (statuses as of 12/13/2023) [facility]* Problem Noted [...] of this encounter (statuses as of 12/13/2023) [facility] Diagnosis Severe persistent asthma with acute exacerbation- Primary Unspecified asthma, with exacerbation documented [facility] this encounter [facility]* Diagnosis Onset Date Resolution Status Abdominal pain acute Diarrhea acute [facility] Work Phone: Evaluation note* Diagnosis Onset Date Resolution Status Abdominal pain acute Diarrhea acute Chest pain acute Mixed hyperlipidemia acute SOB (shortness of breath) ac [place] Benign essential hypertension chronic [facility] Work Phone: evaluation note* Diagnosis Onset Date Resolution Status Abdominal pain acute Diarrhea acute Chest pain acute Mixed hyperlipidemia acute SOB (shortness of breath) [place] Benign essential hypertension chronic Abdominal pain acute Diarrhea acute Elevated CPK acute Fatty liver acute Mixed hyperlipidemia acute Type 2 diabetes mellitus acu te [facility] Work Phone: Evaluation note* Diagnosis Stage 2 moderate COPD by GOLD classification ([facility]LY [facility])- Primary Cigarette smoker Tobacco use disorder Seasonal allergies Allergic rhinitis, cause unspecified [facility] Diagnosis Abdominal bloating- Primary Flatulence, eructation, and gas pain Abdominal mass, unspecified abdominal location [facility]* Diagnosis Rectal bleeding- Primary Hemorrhage of rectum and anus Epigastric abdominal pain Abdominal pain, epigastric Abdominal bloating Flatulence, eructation, and gas pain Rectus diastasis Diastasis of muscle [facility]* Diagnosis Rectal bleeding Hemorrhage of rectum and anus Epigastric abdominal pain Abdominal pain, epigastric [facility]* Diagnosis Neuropathy- Primary Mononeuritis of unspecified site Anxiety and depression Dysthymic disorder Neck pain, musculoskeletal Cervicalgia Insomnia, unspecified type Abdominal distension, gaseous Flatulence, eructation, and gas pain [facility]* Diagnosis Gross hematuria- Primary Acute cystitis with hematuria Acute cystitis Dysuria Urinary frequency Urinary urgency Urgency of urination Essential hypertension Unspecified essential hypertension Cigarette smoker Tobacco use disorder [facility]* Diagnosis Hemorrhoids, unspecified hemorrhoid type- Primary Hiatal hernia Diaphragmatic hernia without mention of obstruction or gangrene Gastroesophageal reflux disease, unspecified whether esophagitis present Tubular adenoma Benign neoplasm of unspecified site [facility]* Diagnosis Type 2 diabetes mellitus with diabetic neuropathy, without long-term current use of insulin ([facility]) [facility]* Diagnosis S/P lumbar laminectomy Other postprocedural status Chronic midline low back pain, unspecified whether sciatica present Spinal stenosis of lumbar region, unspecified whether neurogenic claudication present Gait instability Abnormality of gait documented in this encounter [facility] note* Diagnosis Chronic midline low back pain, unspecified whether sciatica present- Primary S/P lumbar laminectomy Other postprocedural status Gait instability Abnormality of gait documented in this encounter [facility] note* Diagnosis Chronic midline low back pain, unspecified whether sciatica present- Primary S/P lumbar laminectomy Other postprocedural status Gait instability Abnormality of gait documented in this encounter [facility] note* Diagnosis Onset Date Resolution Status Mixed hyperlipidemia acute Benign essential hypertension [facility] Work Phone: Evaluation note* Diagnosis Neuropathy Mononeuritis of unspecified site documented in this encounter [facility] note* Diagnosis Chronic midline low back pain, unspecified whether sciatica present- Primary Type 2 diabetes mellitus with diabetic neuropathy, without long-term current use of insulin ([facility]) Class 1 obesity due to excess calories [...] medication Pure hyperglyceridemia [facility]* Diagnosis Painful urination- Primary Dysuria URI, acute Acute upper respiratory infections of unspecified site [facility]* Diagnosis Moderate persistent asthma with acute exacerbation- Primary [facility] COPD with exacerbation (HCC)- Primary Obstructive chronic bronchitis with exacerbation Moderate persistent asthma with acute exacerbation Urinary tract infection without hematuria, site unspecified [facility]* Diagnosis Severe persistent asthma, unspecified whether complicated- Primary Chronic obstructive pulmonary disease, unspecified COPD type (HCC) Type 2 diabetes mellitus with diabetic neuropathy, without long-term current use of insulin (HCC) Recent urinary tract infection Abdominal tenderness without rebound tenderness, unspecified location [facility]* Diagnosis Type 2 diabetes mellitus with diabetic neuropathy, without long-term current use of insulin (HCC)- Primary Lower abdominal pain Abdominal pain, other specified site Recent urinary tract infection Thrush Candidiasis of mouth [facility]* Diagnosis Lower abdominal pain- Primary Abdominal pain, other specified site [facility]* Diagnosis Anxiety and depression Dysthymic disorder [facility] noteNo assessment information [facility]WPark[facility] Work Phone: Evaluation note* Diagnosis COVID-19 virus infection- Primary Severe persistent asthma, unspecified whether complicated Type 2 diabetes mellitus with diabetic neuropathy, without long-term current use of insulin (HCC) [facility]* Diagnosis Acute bilateral low back pain [...] single bacterial disease [facility]* Diagnosis Nocturnal enuresis- Primary [facility] Diagnosis Essential hypertension- Primary [...] 33.9 in adult documented in this encounter [facility] note* Diagnosis Acute cough- Primary COPD with exacerbation (HCC) Obstructive chronic bronchitis with exacerbation [facility]* Diagnosis Anxiety and depression Dysthymic disorder [facility]* Diagnosis Anxiety and depression Dysthymic disorder documented in this encounter [facility] note* Diagnosis Stage 2 moderate COPD by GOLD classification ([facility])- Primary Tobacco abuse Tobacco use disorder Seasonal allergies Allergic rhinitis, cause unspecified [facility]* Diagnosis Oral thrush- Primary Candidiasis of mouth [facility]* Diagnosis Sinobronchitis- Primary Unspecified sinusitis (chronic) Type 2 diabetes mellitus with diabetic neuropathy, without long-term current use of insulin (HCC) Essential hypertension Unspecified essential hypertension Encounter for long-term current use of medication Mixed hyperlipidemia Chronic obstructive pulmonary disease, unspecified COPD type (HCC) Neuropathy Mononeuritis of unspecified site Stage 2 moderate COPD by GOLD classification ([facility]) Moderate persistent asthma without complication Unspecified asthma Depression, recurrent (HCC) Major depressive disorder, recurrent episode, unspecified documented in this encounter [facility] note* Diagnosis Onset Date Resolution Status Abdominal pain chronic Bloating chronic Diarrhea chronic [place] [facility] Work Phone: Evaluation note* Diagnosis COPD with exacerbation (HCC)- Primary Obstructive chronic bronchitis with exacerbation Itching Unspecified pruritic disorder Sinobronchitis Unspecified sinusitis (chronic) Recurrent major depressive disorder, in remission ([facility]) [facility]* Diagnosis Anxiety and depression Dysthymic disorder [facility]* Diagnosis Moderate persistent asthma without complication Unspecified asthma documented in this encounter [facility] note* Diagnosis Onset Date Resolution Status Abdominal pain chronic Bloating chronic Diarrhea chronic [place] chronic Abdominal pain chronic Bloating chronic Diarrhea chronic [place] [facility] Work Phone: Evaluation note* Diagnosis Stage 2 moderate COPD by GOLD classification ([facility]) documented in this encounter [facility] note* Diagnosis Stage 2 moderate COPD by GOLD classification ([facility]) documented in this encounter [facility] note* Diagnosis Stage 2 moderate COPD by GOLD classification ([facility])- Primary Tobacco abuse Tobacco use disorder documented in this encounter [facility] note* Diagnosis Acute cough- Primary Asthma with COPD with exacerbation (HCC) Chronic obstructive asthma with exacerbation documented in this encounter [facility] note* Diagnosis Hives- Primary Urticaria, unspecified Dermatitis Contact dermatitis and other eczema, due to unspecified cause Other fatigue documented in this encounter [facility] note* Diagnosis Hives- Primary Urticaria, unspecified Dermatitis Contact dermatitis and other eczema, due to unspecified cause documented in this encounter [facility] note* Diagnosis Asymptomatic postmenopausal status documented in this encounter [facility] note* Diagnosis Acute bilateral low back pain with bilateral sciatica Radiculopathy of lumbar region Thoracic or lumbosacral neuritis or radiculitis, unspecified Spinal stenosis of lumbar region with neurogenic claudication Spinal stenosis, lumbar region, with neurogenic claudication documented in this encounter [facility] note* Diagnosis Lower abdominal pain Abdominal pain, other specified site documented in this encounter [facility] note* Diagnosis Encounter for screening mammogram for breast cancer documented in this encounter [facility] note* Diagnosis Moderate persistent asthma without complication Unspecified asthma documented in this encounter [facility] note* Diagnosis Essential hypertension- Primary Unspecified essential hypertension Throbbing headache Headache Acute pain of right shoulder Type 2 diabetes mellitus with hyperglycemia, without long-term current use of insulin (HCC) Severe persistent asthma without complication Pain in both lower extremities Encounter for immunization Need for other specified prophylactic vaccination against single bacterial disease documented in this encounter [facility] note* Diagnosis Onset Date Resolution Status Gastroparesis acute Nonalcoholic fatty liver disease acute Abdominal pain chronic Bloating chronic Diarrhea chronic [place] chronic Hemorrhoid chronic [facility] Work Phone: Evaluation note* Diagnosis Asthma with COPD ([facility])- Primary Chronic obstructive asthma, unspecified Cigarette smoker Tobacco use disorder YARY (obstructive sleep apnea) Obstructive sleep apnea (adult) (pediatric) documented in this encounter [facility] note* Diagnosis Neuropathy Mononeuritis of unspecified site Stage 2 moderate COPD by GOLD classification ([facility]) documented in this encounter [facility] note* Diagnosis Asthma with COPD ([facility]) Chronic obstructive asthma, unspecified [facility] Asthma with COPD (HCC) Chronic obstructive asthma, unspecified [facility]* Diagnosis Encounter for screening for lung cancer- Primary Tobacco use current [facility]* Diagnosis Type 2 diabetes mellitus with hyperglycemia, without long-term current use of insulin ([facility])- Primary YARY (obstructive sleep apnea) Obstructive sleep apnea (adult) (pediatric) Neuropathy Mononeuritis of unspecified site Anxiety and depression Dysthymic disorder Essential hypertension Unspecified essential hypertension Mixed hyperlipidemia Severe persistent asthma without complication Recurrent major depressive disorder, in remission ([facility]) Type 2 diabetes mellitus with diabetic neuropathy, without long-term current use of insulin ([facility]) [facility]* Diagnosis YARY (obstructive sleep apnea) Obstructive sleep apnea (adult) (pediatric) [facility]* Diagnosis Tobacco use current [facility]* Diagnosis Tobacco use current- Primary [facility]* Diagnosis Elevated CK- Primary Other nonspecific abnormal serum enzyme levels [facility]* Diagnosis Diarrhea, unspecified type- Primary Elevated CK Other nonspecific abnormal serum enzyme levels Myalgias Type 2 diabetes mellitus with hyperglycemia, without long-term current use of insulin ([facility]) Class 1 obesity due to excess calories with body mass index (BMI) of 32.0 to 32.9 in adult, unspecified whether serious comorbidity present YARY (obstructive sleep apnea) Obstructive sleep apnea (adult) (pediatric) [facility]* Diagnosis YARY (obstructive sleep apnea)- Primary Obstructive sleep apnea (adult) (pediatric) Injury of toe on left foot, initial encounter [facility]* Diagnosis Acute cough- Primary Elbow swelling, right Suspected COVID-19 virus infection Elbow swelling, right Acute cough [facility]* Diagnosis Cystitis- Primary Cystitis, unspecified [facility]* Diagnosis Moderate persistent asthma without complication Unspecified asthma [facility] Diagnosis Anxiety and depression Dysthymic disorder [facility] Lung nodules- Primary Other nonspecific abnormal finding of lung field Moderate persistent asthma without complication Unspecified asthma Cigarette smoker Tobacco use disorder Class 2 obesity [facility]* Diagnosis Acute cystitis without hematuria- Primary Acute cystitis History of sepsis Personal history of other infectious and parasitic disease Gas bloat syndrome Urinary urgency Urgency of urination Type 2 diabetes mellitus with hyperglycemia, without long-term current use of insulin ([facility]) Other chronic back pain [facility]* Diagnosis Elbow swelling, right Acute cough [facility]* Diagnosis Injury of toe on left foot, initial encounter documented in this encounter [facility] note* Diagnosis Acute bronchitis with chronic obstructive pulmonary disease (COPD) (HCC) ([facility])- Primary Obstructive chronic bronchitis with acute bronchitis Essential hypertension Unspecified essential hypertension Type 2 diabetes mellitus with hyperglycemia, without long-term current use of insulin ([facility]) Mixed hyperlipidemia Severe persistent asthma with acute exacerbation Unspecified asthma, with exacerbation Encounter for long-term current use of medication Class 1 obesity due to excess calories with body mass index (BMI) of 30.0 to 30.9 in adult, unspecified whether serious comorbidity present documented in this encounter [facility] note* Diagnosis Sinobronchitis- Primary Unspecified sinusitis (chronic) Stage 2 moderate COPD by GOLD classification ([facility]) Acute upper respiratory infection Acute upper respiratory infections of unspecified site Acute viral syndrome Unspecified viral infection, in conditions classified elsewhere and of unspecified site documented in this encounter [facility] note* Diagnosis COVID- Primary [facility]* Diagnosis Acute cough documented in this encounter [facility] note* Diagnosis Acute pain of right shoulder [facility]* Diagnosis Acute cough documented in this encounter [facility] note* Diagnosis Moderate persistent asthma with acute exacerbation [facility]* Diagnosis Chronic obstructive pulmonary disease, unspecified COPD type (HCC)- Primary documented in this encounter [facility] note* Diagnosis Acute cough URI, acute Acute upper respiratory infections of unspecified site [facility]* Diagnosis Chest pain, unspecified type Cough SOB (shortness of breath) Shortness of breath documented in this encounter [facility] note* Diagnosis Neuropathy Mononeuritis of unspecified site [facility]* Diagnosis S/P lumbar laminectomy Other postprocedural status documented in this encounter [facility] note* Diagnosis Lung nodules Other nonspecific abnormal finding of lung field documented in this encounter [facility] note* Diagnosis Type 2 diabetes mellitus with diabetic neuropathy, without long-term current use of insulin ([facility])- Primary documented in this encounter [facility] note* Diagnosis Moderate persistent asthma without complication Unspecified asthma Stage 2 moderate COPD by GOLD classification ([facility]) documented in this encounter [facility] note* Diagnosis Needs assistance with community resources- Primary documented in this encounter [facility] note* Diagnosis Neuropathy- Primary Mononeuritis of unspecified site Other fatigue documented in this encounter [facility] note* Diagnosis Type 2 diabetes mellitus with diabetic neuropathy, without long-term current use of insulin ([facility])- Primary Neck pain, musculoskeletal Cervicalgia Mixed hyperlipidemia [...] depression Dysthymic disorder documented in this encounter [facility] note* Diagnosis Needs assistance with community resources- Primary documented in this encounter [facility] note* Diagnosis Other chronic back pain- Primary Neuropathy Mononeuritis of unspecified site [facility]* Diagnosis Pain with urination- Primary Renal colic [facility]* Diagnosis Multifocal pneumonia- Primary Pleural effusion Unspecified pleural effusion Cigarette smoker Tobacco use disorder documented in this encounter [facility] note* Diagnosis Essential hypertension- Primary Unspecified essential hypertension GRACIELA (acute kidney injury) (HCC) Acute kidney failure, unspecified Elevated brain natriuretic peptide (BNP) level Other nonspecific findings on examination of blood Multifocal pneumonia documented in this encounter [facility] note* Diagnosis Needs assistance with community resources- Primary documented in this encounter [facility] note* Diagnosis Needs assistance with community resources- Primary documented in this encounter [facility] note* Diagnosis Encounter for screening mammogram for breast cancer Dense breast tissue [facility]* Diagnosis Neuropathy- Primary Mononeuritis of unspecified site Carpal tunnel syndrome of right wrist Carpal tunnel syndrome [facility]* Diagnosis Moderate persistent asthma without complication- Primary Unspecified asthma Lung nodules Other nonspecific abnormal finding of lung field Class 2 obesity Tobacco use current YARY (obstructive sleep apnea) Obstructive sleep apnea (adult) (pediatric) Family history of abdominal aortic aneurysm (AAA) Ectasia of artery (HCC) [facility]* Diagnosis Type 2 diabetes mellitus with diabetic neuropathy, without long-term current use of insulin (HCC)- Primary Essential hypertension Unspecified essential hypertension Moderate persistent asthma without complication Unspecified asthma Anxiety and depression Dysthymic disorder Neuropathy Mononeuritis of unspecified site Bilateral leg edema Edema Chronic obstructive pulmonary disease with (acute) exacerbation (HCC) [facility]* Diagnosis Urinary frequency- Primary documented in this encounter [facility] note* Diagnosis Encounter for screening for lung cancer- Primary Tobacco use current [facility]* Diagnosis Urinary frequency- Primary Asthma, unspecified asthma severity, unspecified whether complicated, unspecified whether persistent (HCC) History of urinary tract infection Personal history of urinary (tract) infection [facility]* Diagnosis Toe pain, right- Primary Pain in limb Family history of abdominal aortic aneurysm (AAA) Ectasia of artery Acute right ankle pain [facility]* Diagnosis Acute right ankle pain Toe pain, right Pain in limb [facility] Author Uriel Caceres [facility] July 01, 2023 8:01am Note Date/Time July 01, 2023 8 :01am [facility] Medical Records Department [address] [place] [id number] History & Physical Exam 07/01/23 0800 MR#: [id number] Acct: [id number] Name: GARLAND DE SANTIAGO Rep #:[id number] : 1960 63 From: Uriel Caceres DO PCP: Dr. Willam Estrada MD Status[facility] Location: [place] [address] History and Physical Date of Admission: 07/01/23 [...] heartburn and diarrhea 10-12/day since Fall 2020. [place] is primary food as other foods worsen [...] Mood: congruent mood Quality Reporting Tobacco Screening ([facility] 138) Smoking Status: Current every day smoker [...] results from her EGD and colonoscopy at [facility] in 02/2022. f/u next available. (2) [...] Willam Estrada MD; Uriel Caceres DO~ Signed [facility] Work Phone: History and physical note Author Uriel Caceres [facility] November 28, 2023 9:25am Note Date/Time November 28, 2023 9:2 5am [facility] Medical Records Department [address] [place] [address] History & Physical Exam 11/28/23923 MR#: [id number] Acct: [id number] Name: GARLAND DE SANTIAGO Rep #:[id number] : 1960 63 From: Uriel Caceres DO PCP: Dr. Willam Estrada MD Status:[facility] Location: [place] [address] History and Physical Date of Admission: 11/28/23 [...] heartburn and diarrhea 10-12/day since Fall 2020. [place] is primary food as other foods worsen [...] Mood: congruent mood Quality Reporting Tobacco Screening ([facility] 138) Smoking Status: Current every day smoker [...] results from her EGD and colonoscopy at [facility] in 02/2022. f/u next available. (2) [...] Willam Estrada MD; Uriel Caceres DO~ Signed [facility] Work Phone: Hospital Discharge instructions Additional Instructions Cardiac work-up negative chest x-ray negative. Discussed with your doctor for different nebulizer, stop smoking. Follow-up with your doctor return if worsening symptoms.[facility] Work Phone: Hospital Discharge instructions Additional Instructions For the next 4 days or so, take 1 potassium tablet twice per [facility] Work Phone: Hospital Discharge instructionsAmbulatory Orders* Pain Management Location: None Selected [facility] Work Phone: Reason for referral (narrative)* Outpatient Procedure (Routine) - Authorized Specialty Diagnoses / Procedures Referred By Milka ulloa Referred To Contact [facility] Diagnoses Epigastric abdominal pain Procedures EGD DIAGNOSTIC ESOPHAGOGASTRODUODENOSC OPY TRANSORAL DIAGNOSTIC Patti Manrique MD [address] [place] [address] [facility] [address] [place] [address] Referral ID Status Reason Start Date Expiration Date Visits Requested Visits Authorized [id number] Authorized Auto-Generat ed Referral 02/09/2022 02/09/2023 1 1 * Outpatient Procedure (Routine) - Authorized Specialty Diagnoses / Procedures Referred By Contac t Referred To [facility] Diagnoses Rectal bleeding Procedures COLONOSCOPY DIAGNOSTIC COLONOSCOPY FLX DX W/COLLJ SPEC WHEN PFRMD Patti Manrique MD [address] [place] [address] [facility] [address] [place] [address] Referral ID Status Reason Start Date Expiration Date Visits Requested Visits Authorized [id number] Authorized Auto-Generat ed Referral 02/09/2022 02/09/2023 1 1 [facility] for referral (narrative)* Outpatient Procedure (Routine) - Closed Specialty Diagnoses / Procedures Referred By Contac t Referred To [facility] Diagnoses Epigastric abdominal pain Procedures EGD DIAGNOSTIC ESOPHAGOGASTRODUODENOSC OPY TRANSORAL DIAGNOSTIC Patti Manrique MD [address] [place] [address] [facility] [address] [place] [address] Referral ID Status Reason Start Date Expiration Date V isits Requested Visits Authorized [id number] Closed Auto-Generate d Referral 02/09/2022 02/09/2023 1 1 * Outpatient Procedure (Routine) - Closed Specialty Diagnoses / Procedures Referred By Contac t Referred To Contact [facility] Diagnoses Rectal bleeding Procedures COLONOSCOPY DIAGNOSTIC COLONOSCOPY FLX DX W/COLLJ SPEC WHEN Patti Shipley MD [address] [place] [address] [facility] [address] [place] [address] Referral ID Status Reason Start Date Expiration Date V isits Requested Visits Authorized [id number] Closed Auto-Generate d Referral 02/09/2022 02/09/2023 1 1 [facility] for referral (narrative)* Diagnostic Procedure Only (Routine) - Authorized Specialty Diagnoses / Procedures Referred By Contac t Referred To Contact [facility] Diagnoses Lower abdominal pain Procedures US FEMALE PELVIS TRANSVAG US TRANSVAGINAL Diana Andres APRN.HOG FEEDER [address] [place] [address] [facility] Referral ID Status Reason Start Date Expiration Date Visits Requested Visits Authorized [id number] Authorized Auto-Generat ed Referral 2 08/08/2023 1 1 * Diagnostic Procedure Only (Routine) - Authorized Specialty Diagnoses / Procedures Referred By Contac t Referred To Contact [facility] Diagnoses Lower abdominal pain Procedures US FEMALE PELVIS TRANSABD LTD US PELVIC NONOBSTETRIC IMAGE DCMTN LIMITED/F/U Diana Andres APRN.HOG FEEDER [address] [place] [address] [facility] Referral ID Status Reason Start Date Expiration Date Visits Requested Visits Authorized [id number] Authorized Auto-Generat ed Referral 2 08/08/2023 1 1 [facility] for referral (narrative)* Outpatient Procedure (Routine) - [...] STUDY EXTREMITY 3 Willam Connor MD [address] [place] [address] [facility] [place] [address] Referral ID Status Reason Start Date Expiration Date Visits Requested Visits Authorized [id number] Authorized Auto-Generat ed Referral 10/08/2022 10/08/2023 1 1 [facility] for referral (narrative)* Outpatient Procedure (Routine) - Authorized Specialty Diagnoses / Procedures Referred By Contac t Referred To Contact [facility] Diagnoses Stage 2 moderate COPD by GOLD classification ([facility]) Procedures LUNG DIFFUSION CAPACITY (DLCO) DIFFUSING CAPACITY Leila Rubi PA-C [address] [place] [address] [address] Referral ID Status Reason Start Date Expiration Date Visits Requested Visits Authorized [id number] Authorized Auto-Generat ed Referral 12/21/2022 01/20/2024 1 1 * Outpatient Procedure (Routine) - Authorized Specialty Diagnoses / Procedures Referred By Contac t Referred To Contact [facility] Diagnoses Stage 2 moderate COPD by GOLD classification ([facility]) Procedures SPIROMETRY BASELINE ONLY SPMTRY W/VC EXPIRATORY WEST W/WO MXML VOL VNTJ Leila Rubi PA-C [address] [place] [address] [address] Referral ID Status Reason Start Date Expiration Date Visits Requested Visits Authorized [id number] Authorized Auto-Generat ed Referral 12/21/2022 01/20/2024 1 1 [facility] for referral (narrative)* Diagnostic Procedure Only (Routine) - Closed Specialty Diagnoses / Procedures Referred By Contac t Referred To Contact [facility] Diagnoses Lower abdominal pain Procedures US FEMALE PELVIS TRANSVAG US TRANSVAGINAL Diana Andres APRN.HOG FEEDER [address] [place] [address] [place] [address] Referral ID Status Reason Start Date Expiration Date V isits Requested Visits Authorized [id number] Closed Auto-Generate d Referral 07/09/2022 08/08/2023 1 1 * Diagnostic Procedure Only (Routine) - Closed Specialty Diagnoses / Procedures Referred By Contac t Referred To Contact [facility] Diagnoses Lower abdominal pain Procedures US FEMALE PELVIS TRANSABD LTD US PELVIC NONOBSTETRIC IMAGE DCMTN LIMITED/F/U Diana Andres APRN.HOG FEEDER [address] [place] [address] [place] [address] Referral ID Status Reason Start Date Expiration Date V isits Requested Visits Authorized [id number] Closed Auto-Generate d Referral 07/09/2022 08/08/2023 1 1 [facility] for referral (narrative)* Diagnostic Procedure Only (Routine) - Closed Specialty Diagnoses / Procedures Referred By Contac t Referred To Contact [facility] Diagnoses Encounter for screening mammogram for breast cancer Procedures JAVIER SCREENING SCREENING MAMMOGRAPHY BI 2-VIEW BREAST INC CAD Willam Estrada MD [address] [place] [address] [facility] [address] [place] [address] Referral ID Status Reason Start Date Expiration Date V isits Requested Visits Authorized [id number] Closed Auto-Generate d Referral 08/07/2022 09/06/2023 1 1 [facility] for referral (narrative)* Diagnostic Procedure Only (Routine) - Closed Specialty Diagnoses / Procedures Referred By Contac t Referred To Contact [facility] Diagnoses Acute pain of right shoulder Procedures XR SHOULDER GENERAL 3V OR MORE AP/TRUE AP/OTHER RIGHT RADEX SHOULDER COMPLETE MINIMUM 2 VIEWS Willam Estrada MD [facility] [place] [address] X[facility] [place] [address] Referral ID Status Reason Start Date Expiration Date V isits Requested Visits Authorized [id number] Closed Auto-Generate d Referral 07/23/2023 08/21/2024 1 1 [facility] for referral (narrative)* Outpatient Procedure (Routine) - Authorized Specialty Diagnoses / Procedures Referred By Contac t Referred To Contact [facility] Diagnoses Asthma with COPD (HCC) Procedures NITRIC OXIDE, EXHALED NITRIC OXIDE GAS DETERMINATION Mona Corrigan MD [address] [place] [address] [place] [address] Referral ID Status Reason Start Date Expiration Date Visits Requested Visits Authorized [id number] Authorized Auto-Generat ed Referral 11/05/2023 12/04/2024 1 1 * Outpatient Procedure (Routine) - Authorized Specialty Diagnoses / Procedures Referred By Contac t Referred To Contact [facility] Diagnoses Asthma with COPD (HCC) Procedures SPIROMETRY WITH DILATOR IF OBSTRUCTED BRNCDILAT RSPSE SPMTRY PRE&POST-BRNCDILAT ADMN Mona Corrigan MD [address] [place] [address] [place] [address] Referral ID Status Reason Start Date Expiration Date Visits Requested Visits Authorized [id number] Authorized Auto-Generat ed Referral 11/05/2023 12/04/2024 1 1 [facility] for referral (narrative)* Diagnostic Procedure Only (Routine) - Closed Specialty Diagnoses / Procedures Referred By Contac t Referred To Contact [facility] Diagnoses Injury of toe on left foot, initial encounter Procedures XR FOOT GENERAL 3V AP/LAT/OBL LEFT RADEX FOOT COMPLETE MINIMUM 3 VIEWS Allegar Berumen APRN.HOG FEEDER [address] [place] [address] [place] [address] Referral ID Status Reason Start Date Expiration Date V isits Requested Visits Authorized [id number] Closed Auto-Generate d Referral 02/18/2024 03/19/2025 1 1 [facility] for referral (narrative)* Diagnostic Procedure Only (Urgent) - Closed Specialty Diagnoses / Procedures Referred By Contac t Referred To Contact [facility] Diagnoses Elbow swelling, right Procedures XR ELBOW SPECIAL VIEWS AP/LAT/OTHER RIGHT RADEX ELBOW COMPLETE MINIMUM 3 VIEWS Felipe Jolly APRN.HOG FEEDER [address] [place] [address] [place] [address] Referral ID Status Reason Start Date Expiration Date V isits Requested Visits Authorized [id number] Closed Auto-Generate d Referral 03/04/2024 04/03/2025 1 1 [facility] for referral (narrative)* Diagnostic Procedure Only (Urgent) - Closed Specialty Diagnoses / Procedures Referred By Contac t Referred To Contact [facility] Diagnoses Elbow swelling, right Procedures XR ELBOW SPECIAL VIEWS AP/LAT/OTHER RIGHT RADEX ELBOW COMPLETE MINIMUM 3 VIEWS Felipe Jolly APRN.HOG FEEDER [address] [place] [address] [place] [address] Referral ID Status Reason Start Date Expiration Date V isits Requested Visits Authorized [id number] Closed Auto-Generate d Referral 03/04/2024 04/03/2025 1 1 [facility] for referral (narrative)* Diagnostic Procedure Only (Routine) - Closed Specialty Diagnoses / Procedures Referred By Contac t Referred To Contact [facility] Diagnoses Injury of toe on left foot, initial encounter Procedures XR FOOT GENERAL 3V AP/LAT/OBL LEFT RADEX FOOT COMPLETE MINIMUM 3 VIEWS Allegra Berumen APRN.CNP [facility] [place] [address] [place] [address] Referral ID Status Reason Start Date Expiration Date V isits Requested Visits Authorized [id number] Closed Auto-Generate d Referral 02/18/2024 03/19/2025 1 1 [facility] for referral (narrative)* Diagnostic Procedure Only (Routine) - Closed Specialty Diagnoses / Procedures Referred By Contac t Referred To Contact [facility] Diagnoses Acute pain of right shoulder Procedures XR SHOULDER GENERAL 3V OR MORE AP/TRUE AP/OTHER RIGHT RADEX SHOULDER COMPLETE MINIMUM 2 VIEWS Willam Estrada MD [address] [place] [address] Xr Imaging [facility] Referral ID Status Reason Start Date Expiration Date V isits Requested Visits Authorized [id number] Closed Auto-Generate d Referral 07/23/2023 08/21/2024 1 1 [facility] for referral (narrative)* Outpatient Procedure (Routine) - New Request Specialty Diagnoses / Procedures Referred By Contac t Referred To Contact [facility] Diagnoses Neuropathy Procedures EMG(NEURO/NI) NERVE CONDUCTION STUDIES 9-10 STUDIES Indigo Nichols PA-C [facility] [place] [id number] [facility] [address] [place] [address] Referral ID Status Reason Start Date Expiration Date Visits Requested Visits Authorized [id number] New Request Auto-Generat ed Referral 07/29/2025 1 1 [facility] for referral (narrative)* Outpatient Procedure (Routine) - New Request Specialty Diagnoses / Procedures Referred By Milka ulloa Referred To Contact [facility] Diagnoses Neuropathy Procedures EMG(NEURO/NI) NERVE CONDUCTION STUDIES 9-10 STUDIES Indigo Nichols PA-C [address] [place] [address] [facility] [address] [place] [address] Referral ID Status Reason Start Date Expiration Date Visits Requested Visits Authorized [id number] New Request Auto-Generat ed Referral 4 07/31/2025 1 1 * Outpatient Procedure (Routine) - New Request Specialty Diagnoses / Procedures Referred By Milka ulloa Referred To Contact [facility] Diagnoses Neuropathy Procedures EMG(NEURO/NI) NERVE CONDUCTION STUDIES 9-10 STUDIES Indigo Nichols PA-C [address] [place] [address] [address] Referral ID Status Reason Start Date Expiration Date Visits Requested Visits Authorized [id number] New Request Auto-Generat ed Referral 4 07/31/2025 1 1 [facility] for referral (narrative)* Diagnostic Procedure Only (Routine) - Closed Specialty Diagnoses / Procedures Referred By Milka ulloa Referred To Contact [facility] Diagnoses Encounter for screening mammogram for breast cancer Dense breast tissue Procedures JAVIER SCREENING W STARLA SCREENING DIGITAL BREAST TOMOSYNTHESIS BI SCREENING MAMMOGRAPHY BI 2-VIEW BREAST INC CAD Alejandrina Barrios MD [address] [place] [address] [facility] [address] [place] [address] Referral ID Status Reason Start Date Expiration Date V isits Requested Visits Authorized [id number] Closed Auto-Generate d Referral 10/03/2023 11/01/2024 1 1 [facility] for visit Narrative* Outpatient Procedure (Routine) - Closed Specialty Diagnoses / Procedures Referred By Contac t Referred To Contact [facility] Diagnoses Epigastric abdominal pain Procedures EGD DIAGNOSTIC ESOPHAGOGASTRODUODENOSC OPY TRANSORAL DIAGNOSTIC Patti Manrique MD [address] [place] [address] [facility] [address] [place] [address] Referral ID Status Reason Start Date Expiration Date V isits Requested Visits Authorized [id number] Closed Auto-Generate d Referral 02/09/2022 02/09/2023 1 1 [facility] for visit Narrative* Diagnostic Procedure Only (Routine) - Closed Specialty Diagnoses / Procedures Referred By Contac t Referred To Contact [facility] Diagnoses Encounter for screening mammogram for breast cancer Procedures JAVIER SCREENING SCREENING MAMMOGRAPHY BI 2-VIEW BREAST INC CAD Willam Estrada MD [address] [place] [address] [facility] [address] [place] [address] Referral ID Status Reason Start Date Expiration Date V isits Requested Visits Authorized [id number] Closed Auto-Generate d Referral 08/07/2022 09/06/2023 1 1 [facility] for visit Narrative* Diagnostic Procedure Only (Urgent) - Closed Specialty Diagnoses / Procedures Referred By Contac t Referred To Contact [facility] Diagnoses Elbow swelling, right Procedures XR ELBOW SPECIAL VIEWS AP/LAT/OTHER RIGHT RADEX ELBOW COMPLETE MINIMUM 3 VIEWS Felipe Jolly, CHRIS.HOG FEEDER [address] [place] [address] [place] [address] Referral ID Status Reason Start Date Expiration Date V isits Requested Visits Authorized [id number] Closed Auto-Generate d Referral 03/04/2024 04/03/2025 1 1 [facility] for visit Narrative* Diagnostic Procedure Only (Routine) - Closed Specialty Diagnoses / Procedures Referred By Contac t Referred To Contact [facility] Diagnoses Injury of toe on left foot, initial encounter Procedures XR FOOT GENERAL 3V AP/LAT/OBL LEFT RADEX FOOT COMPLETE MINIMUM 3 VIEWS [place], Allegra, SUPPLY CHAIN PROGRAM MANAGER.HOG FEEDER [address] [place] [address] [place] [address] Referral ID Status Reason Start Date Expiration Date V isits Requested Visits Authorized [id number] Closed Auto-Generate d Referral 02/18/2024 03/19/2025 1 1 [facility] for visit Narrative* Diagnostic Procedure Only (Routine) - Closed Specialty Diagnoses / Procedures Referred By Contac t Referred To Contact [facility] Diagnoses Acute pain of right shoulder Procedures XR SHOULDER GENERAL 3V OR MORE AP/TRUE AP/OTHER RIGHT RADEX SHOULDER COMPLETE MINIMUM 2 VIEWS Willam Estrada MD [address] [place] [id number] [place] [address] Referral ID Status Reason Start Date Expiration Date V isits Requested Visits Authorized [id number] Closed Auto-Generate d Referral 07/23/2023 08/21/2024 1 1 [facility] for visit Narrative* Diagnostic Procedure Only (Routine) - Closed Specialty Diagnoses / Procedures Referred By Contac t Referred To Contact [facility] Diagnoses Encounter for screening mammogram for breast cancer Dense breast tissue Procedures JAVIER SCREENING W STARLA SCREENING DIGITAL BREAST TOMOSYNTHESIS BI SCREENING MAMMOGRAPHY BI 2-VIEW BREAST INC CAD Alejandrina Barrios MD [address] [place] [id number] [facility] [address] [place] [address] Referral ID Status Reason Start Date Expiration Date V isits Requested Visits Authorized [id number] Closed Auto-Generate d Referral 10/03/2023 11/01/2024 1 1 [facility] for visit Narrative* Diagnostic Procedure Only (Routine) - Closed Specialty Diagnoses / Procedures Referred By Contac t Referred To Contact [facility] Diagnoses Acute right ankle pain Procedures XR ANKLE 2V AP/LAT RIGHT RADIOLOGIC EXAMINATION ANKLE 2 VIEWS Jonnathan Mckeon, DO [address] [place] [address] Phone: tel: fax: [place] [address] Referral ID Status Reason Start Date Expiration Date V isits Requested Visits Authorized [id number] Closed Auto-Generate d Referral 03/02/2025 04/01/2026 1 1 [facility] Summary Purpose Family History No Family History [...] FoundDocuments on File Type Date Recorded Patient Radio Maintainer Expl anation Advance Directive(s) 08/10/2021 12:29 PM Advance Directive(s) 07/18/2021 3:57 PM Advance Directive(s) 04/27/2020 12:06 PM Advance Directive(s) 08/07/2019 2:15 PM Advance Directive(s) 02/09/2016 10:35 AM Advance Directive Response Recorded Date/ Time Advance Directives No September 26, 2015 10:28am Living Will No August 21 3:48pm Power of Pecan Mallow Dipper No August 21, 2021 3:48pm Documents on File Type Date Recorded Patient Radio Maintainer Expl anation Advance Directive(s) 08/10/2021 12:29 PM Advance Directive(s) 07/18/2021 3:57 PM Advance Directive(s) 04/27/2020 12:06 PM Advance Directive(s) 08/07/2019 2:15 PM Advance Directive(s) 02/09/2016 10:35 AM Documents on File Type Date Recorded Patient Radio Maintainer Expl anation Advance Directive(s) 02/22/2022 11:18 AM Advance Directive(s) 08/10/2021 12:29 PM Advance Directive(s) 07/18/2021 3:57 PM Advance Directive(s) 04/27/2020 12:06 PM Advance Directive(s) 08/07/2019 2:15 PM Advance Directive(s) 02/09/2016 10:35 AM Documents on File Type Date Recorded Patient Radio Maintainer Expl anation Advance Directive(s) 02/22/2022 11:18 AM Advance Directive(s) 08/10/2021 12:29 PM Advance Directive(s) 07/18/2021 3:57 PM Advance Directive(s) 04/27/2020 12:06 PM Advance Directive(s) 08/07/2019 2:15 PM Advance Directive(s) 02/09/2016 10:35 AM Advance Directive Response Recorded Date/ Time Advance Directives No September 26, 2015 9:28am Living Will No August 24 7:27pm Power of Pecan Mallow Dipper No August 24, 2022 7:27pm Advance Directive Response Recorded Date/ Time Advance Directives No September 26, 2015 10:28am Living Will No December 29, 2022 8:15pm Power of Pecan Mallow Dipper No December 29 8:15pm Advance Directive Response Recorded Date/ Time Advance Directives No September 26, 2015 10:28am Living Will No May 26, 2023 9:50pm Power of Pecan Mallow Dipper No May 9:50pm Advance Directive Response Recorded Date/ Time Advance Directives No September 26, 2015 10:28am Living Will No May 30, 2023 4:45pm Power of Pecan Mallow Dipper No May 4:45pm Advance Directive Response Recorded Date/ Time Advance Directives No September 26, 2015 10:28am Living Will No June 27 10:14pm Power of Pecan Mallow Dipper No June 27, 2023 10:14pm Advance Directive Response Recorded Date/ Time Advance Directives No September 26, 2015 9:28am Living Will No September 20 5:17pm Power of Pecan Mallow Dipper No September 20, 2023 5:17pm Advance Directive Response Recorded Date/ Time Advance Directives No September 26, 2015 10:28am Living Will No November 26, 2023 12:44pm Power of Pecan Mallow Dipper No November 25 12:44pm Advance Directive Response Recorded Date/ Time Living Will No May 08 10:47pm Power of Pecan Mallow Dipper No May 08 10:47pm Advance Directives No September 11, 2024 3:03pm Living Will No August 02 12:49pm Power of Pecan Mallow Dipper No August 02, 2024 12:49pm Living Will No August 05 9:17pm Power of Pecan Mallow Dipper No August 05, 2024 9:17pm Living Will No August 09 4:38pm Power of Pecan Mallow Dipper No August 09, 2024 4:38pm Advance Directive Response Recorded Date/ Time Living Will No May 08 10:47pm Do you have a Healthcare Power of Pecan Mallow Dipper? No May 08, 2024 10:47pm Advance Directives No September 11, 2024 3:03pm Advance Directive Response Recorded Date/ Time Advance Directives No September 11, 2024 3:03pm Hospital Course Note HNO ID: [id number] Author: Da Knutson Service: Hospital Medicine Author [...] (more content not included)... Note HNO ID: [id number] Author: Becky Short Service: ? Author Type: Nurse Security Technician Type: Anesthesia Procedure Notes Filed: 04/29/2020 3:27 PM Note Text: ANESTHESIOLOGY PROCEDURE NOTE Airway General Information Procedure Start Time/Medication Administration: 04/29/2020 3:21 PM Patient location during procedure: OR Patient identity confirmed: arm band Staffing Anesthesiologist: Apollo Reeder WET PROCESS MILLER HEAD: Day Short Performed by: WET PROCESS MILLER HEAD Indications and Patient Condition Preoxygenated: yes Patient [...] (more content not included)... Note HNO ID: [id number] Author: Becky Short Service: ? Author Type: Nurse Security Technician Type: Anesthesia Procedure Notes Filed: 04/29/2020 3:25 PM Note Text: ANESTHESIOLOGY PROCEDURE NOTE PIV General Information SIGNATURE: Day Short APRN.CRNA PATIENT NAME: Garland De Santiago DATE: April 29, 2020 TIME: 3:25 PM CSN: [id number] Note HNO ID: [id number] Author: Tyson Small Service: Neurosurgery Author Type: Physician Type: Brief Op Note Filed: 04/29/2020 5:05 PM Note Text: BRIEF OPERATIVE / PROCEDURE NOTE LOG ID: [id number] SURGERY/PROCEDURE DATE: 04/29/2020 INCISION/PROCEDURE START TIME: 3:22 PM INCISION CLOSE/PROCEDURE END TIME: 05.05 PM SURGEON(S)/PROCEDURALIST(S) AND RESEARCH ELECTRICIAN(S): Surgeon(s) and Role: * Gerri Small - Primary Physician Oil And Gas Drafter: Deirdre Preciado ([place]) SURGERY/PROCEDURE(S): L4 laminectomy, decompression [...] not included)... Procedure Findings Note HNO ID: [id number] Author: Becky Short Service: ? Author Type: Nurse Security Technician Type: Anesthesia Procedure Notes Filed: 04/29/2020 3:27 PM Note Text: ANESTHESIOLOGY PROCEDURE NOTE Airway General Information Procedure Start Time/Medication Administration: 04/29/2020 3:21 PM Patient location during procedure: OR Patient identity confirmed: arm band Staffing Anesthesiologist: Apollo Reeder WET PROCESS MILLER HEAD: Day Short Performed by: CARLOS Indications and [...] (more content not included)... Note HNO ID: [id number] Author: Becky Short Service: ? Author Type: Nurse Security Technician Type: Anesthesia Procedure Notes Filed: 04/29/2020 3:25 PM Note Text: ANESTHESIOLOGY PROCEDURE NOTE PIV General Information SIGNATURE: Day Short, SUPPLY CHAIN PROGRAM MANAGER.CARLOS PATIENT NAME: Garland De Santiago DATE: April 29, 2020 TIME: 3:25 PM CSN: [id number] Note HNO ID: [id number] Author: Tyson Small Service: Neurosurgery Author Type: Physician Type: Brief Op Note Filed: 04/29/2020 5:05 PM Note Text: BRIEF OPERATIVE / PROCEDURE NOTE LOG ID: [id number] SURGERY/PROCEDURE DATE: 04/29/2020 INCISION/PROCEDURE START TIME: 3:22 PM INCISION CLOSE/PROCEDURE END TIME: 05.05 PM SURGEON(S)/PROCEDURALIST(S) AND RESEARCH ELECTRICIAN(S): Surgeon(s) and Role: * Gerri Small - Primary Physician Oil And [employer] Drafter: Deirdre Preciado ([place]) SURGERY/PROCEDURE(S): L4 laminectomy, decompression [...] 5:00pm RUE/RLE; DM II W/ DIABETIC NEUROPATHY [facility] 2024 12:33pm RUE/RLE; DM II W/ DIABETIC NEUROPATHY [facility] 2024 2:07pm THORACIC/LUMBAR SPINE November 16, 2024 [...] 5:00pm RUE/RLE; DM II W/ DIABETIC NEUROPATHY [facility] 2024 12:33pm RUE/RLE; DM II W/ DIABETIC NEUROPATHY [facility] 2024 2:07pm THORACIC/LUMBAR SPINE November 16, 2024 [...] 5:00pm RUE/RLE; DM II W/ DIABETIC NEUROPATHY [facility] 2024 12:33pm RUE/RLE; DM II W/ DIABETIC NEUROPATHY [facility] 2024 2:07pm THORACIC/LUMBAR SPINE November 16, 2024 [...] location Procedures CONSULT TO GENERAL SURGERY OFFICE/OUTPATIENT [facility] 60-74 MINUTES Felipe Jolly, SUPPLY CHAIN PROGRAM MANAGER.HOG FEEDER [address] [place] [address] Referral ID Status Reason Start Date Expiration Date Visits Requested Visits Authorized [id number] Authorized PCP Requested Referral 02/06/2022 02/06/2023 1 [...] HIGH COMPLEX 45 MINS Willam Estrada MD [address] [place] [address] [facility] [address] [place] [address] Referral ID Status Reason Start Date Expiration Date Visits Requested Visits Authorized [id number] Authorized PCP Requested Referral Auto-Generate d Referral 04/06/2022 04/06/2023 99 99 Specialty Diagnoses / Procedures Referred By Contac t Referred To Contact MR IMAGING Diagnoses Acute bilateral low back pain with bilateral sciatica Radiculopathy of lumbar region Spinal stenosis of lumbar region with neurogenic claudication Procedures MRI LUMBAR SPINE WO IVCON MRI SPINAL CANAL LUMBAR W/O CONTRAST MATERIAL Willam Estrada MD [address] [place] [address] [facility] Referral ID Status Reason Start Date Expiration Date Visits Requested Visits Authorized [id number] Authorized Auto-Generat ed Referral 2 09/06/2023 1 1 Specialty Diagnoses / Procedures Referred By Contac t Referred To Contact BR IMAGING Diagnoses Encounter for screening mammogram for breast cancer Procedures JAVIER SCREENING SCREENING MAMMOGRAPHY BI 2-VIEW BREAST INC CAD Willam Estrada MD [address] [place] [address] [facility] [address] [place] [address] Referral ID Status Reason Start Date Expiration Date Visits Requested Visits Authorized [id number] Authorized Auto-Generat ed Referral 2 09/06/2023 1 1 Specialty Diagnoses / Procedures Referred By Contac t Referred To Contact Urology Diagnoses Nocturnal enuresis Procedures CONSULT TO UROLOGY OFFICE/OUTPATIENT [facility] 60-74 MINUTES Allegra Berumen APRN.CNP [address] [place] [address] Referral ID Status Reason Start Date Expiration Date Visits Requested Visits Authorized [id number] Authorized PCP Requested Referral 09/19/2022 09/19/2023 1 1 Specialty Diagnoses / Procedures Referred By Contac t Referred To Contact Pulmonary and Critical Care Medicine Diagnoses COPD with exacerbation (HCC) Procedures CONSULT TO PULM/CRITICAL CARE OFFICE/OUTPATIENT [facility] 60-74 MINUTES Willam Estrada MD [address] [place] [address] Mona Corrigan MD [address] [place] [address] Referral ID Status Reason Start Date Expiration Date Visits Requested Visits Authorized [id number] Authorized PCP Requested Referral 12/18/2022 12/18/2023 1 1 Specialty Diagnoses / Procedures Referred By Contac t Referred To Contact MR IMAGING Diagnoses Acute bilateral low back pain with bilateral sciatica Radiculopathy of lumbar region Spinal stenosis of lumbar region with neurogenic claudication Procedures MRI LUMBAR SPINE WO IVCON MRI SPINAL CANAL LUMBAR W/O CONTRAST MATERIAL Willam Estrada MD [facility] [place] [address] Mr Imaging [place] [address] Referral ID Status Reason Start Date Expiration Date V isits Requested Visits Authorized [id number] Closed Auto-Generate d Referral 08/07/2022 09/06/2023 1 1 Specialty Diagnoses / Procedures Referred By Contac t Referred To Contact CT IMAGING Diagnoses Tobacco use current Procedures CT LUNG SCREEN WO IVCON COMPUTED TOMOGRAPHY THORAX LW DOSE LNG CA SCR C- Justyna Mora, SUPPLY CHAIN PROGRAM MANAGER.HOG FEEDER [address] [place] [address] Ct [facility] [place] [address] Referral ID Status Reason Start Date Expiration Date Visits Requested Visits Authorized [id number] Authorized Auto-Generat ed Referral 11/11/2023 12/10/2024 1 1 Referral ID Status Reason Start Date Expiration Date V isits Requested Visits Authorized [id number] Closed Auto-Generate d Referral 11/11/2023 12/10/2024 1 1 Referral ID Status Reason Start Date Expiration Date Visits Requested Visits Authorized [id number] Pending Review Auto-Generat ed Referral 11/25/2023 12/24/2024 1 1 Specialty Diagnoses / Procedures Referred By Contac t Referred To Contact Diagnoses Moderate persistent asthma without complication Willam Estrada MD [address] [place] [address] Referral ID Status Reason Start Date Expiration Date Visits Re quested Visits Authorized [id number] Closed 1 1 Referral ID Status Reason Start Date Expiration Date Visits Re quested Visits Authorized [id number] Closed 1 1 Specialty Diagnoses / Procedures Referred By Contac t Referred To Contact CT IMAGING Diagnoses Lung nodules Procedures CT CHEST WO IVCON DIAGNOSTIC COMPUTED TOMOGRAPHY THORAX W/O Mona Zuniga MD [address] [place] [address] Ct [facility] Referral ID Status Reason Start Date Expiration Date Visits Requested Visits Authorized [id number] Authorized Auto-Generat ed Referral 06/06/2025 1 1 Specialty Diagnoses / Procedures Referred By Contac t Referred To Contact Neurology Diagnoses Type 2 diabetes mellitus with diabetic neuropathy, without long-term current use of insulin (HCC) Procedures CONSULT TO NEUROLOGY OFFICE/OUTPATIENT NEW HIGH MDM 60 MINUTES Willam Estrada MD [address] [place] [address] Referral ID Status Reason Start Date Expiration Date Visits Requested Visits Authorized [id number] Authorized PCP Requested Referral 4 07/09/2025 1 [...] Date High Risk Chronic Disease Home Monitoring Psychiatric 01/23/2023 Problem Noted Date Diagnosed Date High Risk Chronic Disease Home Monitoring Psychiatric 01/23/2023 Problem Noted Date Diagnosed Date High Risk Chronic Disease Home Monitoring Psychiatric 01/23/2023 Problem Noted Date Diagnosed Date High Risk Chronic Disease Home Monitoring Psychiatric 01/23/2023 Problem Noted Date Diagnosed Date High Risk Chronic Disease Home Monitoring Psychiatric 01/23/2023 Problem Noted Date Diagnosed Date High Risk Chronic Disease Home Monitoring Psychiatric 01/23/2023 Problem Noted Date Diagnosed Date High Risk Chronic Disease Home Monitoring Psychiatric 01/23/2023 Active Problems Noted Date Diagnosed Date High Risk Chronic Disease Home Monitoring Psychiatric 01/23/2023 Active Problems Noted Date Diagnosed Date High Risk Chronic Disease Home Monitoring Psychiatric 01/23/2023 Active Problems Noted Date Diagnosed Date High Risk Chronic Disease Home Monitoring Psychiatric 01/23/2023 Active Problems Noted Date Diagnosed Date High Risk Chronic Disease Home Monitoring Psychiatric 01/23/2023 Active Problems Noted Date Diagnosed Date High Risk Chronic Disease Home Monitoring Psychiatric 01/23/2023 Active Problems Noted Date Diagnosed Date High Risk Chronic Disease Home Monitoring Psychiatric 01/23/2023 Additional Source Comments INFORMATION SOURCE (unrecogn ized section and content) DATE CREATED AUTHOR 03/04/2018 [facility] [place] [facility] DATE CREATED AUTHOR AUTHOR'S ORGANIZ ATION 08/16/2020 [facility] DATE CREATED AUTHOR AUTHOR'S ORGANIZ ATION 02/27/2022 [facility] DATE CREATED AUTHOR AUTHOR'S ORGANIZ ATION 02/05/2025 [facility] DATE CREATED AUTHOR AUTHOR'S ORGANIZ ATION 03/10/2025 [facility] Source Comments (unrecognize d section and content) In the event this informatio n is protected by the Federal Confidentiality of Alcohol and Drug Abuse Patient Records regulations: The Federal rules restrict any use of the information to criminally investigate or prosecute any alcohol or drug abuse patient.[facility] the event this information is protected by the Federal Confidentiality of Alcohol and Drug Abuse Patient Records regulations: The Federal rules restrict any use of the information to criminally investigate or prosecute any alcohol or drug abuse patient.[facility] HospitalIn the event this information is protected by the Federal Confidentiality of Alcohol and Drug Abuse Patient Records regulations: The Federal rules restrict any use of the information to criminally investigate or prosecute any alcohol or drug abuse patient.[facility]In the event this information is protected by the Federal Confidentiality of Alcohol and Drug Abuse Patient Records regulations: The Federal rules restrict any use of the information to criminally investigate or prosecute any alcohol or drug abuse patient.[facility] HospitalIn the event this information is protected by the Federal Confidentiality of Alcohol and Drug Abuse Patient Records regulations: The Federal rules restrict any use of the information to criminally investigate or prosecute any alcohol or drug abuse patient.[facility] HospitalIn the event this information is protected by the Federal Confidentiality of Alcohol and Drug Abuse Patient Records regulations: The Federal rules restrict any use of the information to criminally investigate or prosecute any alcohol or drug abuse patient.[facility] HospitalIn the event this information is protected by the Federal Confidentiality of Alcohol and Drug Abuse Patient Records regulations: The Federal rules restrict any use of the information to criminally investigate or prosecute any alcohol or drug abuse patient.[facility] HospitalIn the event this information is protected by the Federal Confidentiality of Alcohol and Drug Abuse Patient Records regulations: The Federal rules restrict any use of the information to criminally investigate or prosecute any alcohol or drug abuse patient.[facility] HospitalIn the event this information is protected by the Federal Confidentiality of Alcohol and Drug Abuse Patient Records regulations: The Federal rules restrict any use of the information to criminally investigate or prosecute any alcohol or drug abuse patient.[facility] HospitalIn the event this information is protected by the Federal Confidentiality of Alcohol and Drug Abuse Patient Records regulations: The Federal rules restrict any use of the information to criminally investigate or prosecute any alcohol or drug abuse patient.[facility] HospitalIn the event this information is protected by the Federal Confidentiality of Alcohol and Drug Abuse Patient Records regulations: The Federal rules restrict any use of the information to criminally investigate or prosecute any alcohol or drug abuse patient.[facility] HospitalIn the event this information is protected by the Federal Confidentiality of Alcohol and Drug Abuse Patient Records regulations: The Federal rules restrict any use of the information to criminally investigate or prosecute any alcohol or drug abuse patient.[facility] HospitalIn the event this information is protected by the Federal Confidentiality of Alcohol and Drug Abuse Patient Records regulations: The Federal rules restrict any use of the information to criminally investigate or prosecute any alcohol or drug abuse patient.[facility] HospitalIn the event this information is protected by the Federal Confidentiality of Alcohol and Drug Abuse Patient Records regulations: The Federal rules restrict any use of the information to criminally investigate or prosecute any alcohol or drug abuse patient.[facility] HospitalIn the event this information is protected by the Federal Confidentiality of Alcohol and Drug Abuse Patient Records regulations: The Federal rules restrict any use of the information to criminally investigate or prosecute any alcohol or drug abuse patient.[facility] HospitalIn the event this information is protected by the Federal Confidentiality of Alcohol and Drug Abuse Patient Records regulations: The Federal rules restrict any use of the information to criminally investigate or prosecute any alcohol or drug abuse patient.[facility] HospitalIn the event this information is protected by the Federal Confidentiality of Alcohol and Drug Abuse Patient Records regulations: The Federal rules restrict any use of the information to criminally investigate or prosecute any alcohol or drug abuse patient.[facility] HospitalIn the event this information is protected by the Federal Confidentiality of Alcohol and Drug Abuse Patient Records regulations: The Federal rules restrict any use of the information to criminally investigate or prosecute any alcohol or drug abuse patient.[facility] HospitalIn the event this information is protected by the Federal Confidentiality of Alcohol and Drug Abuse Patient Records regulations: The Federal rules restrict any use of the information to criminally investigate or prosecute any alcohol or drug abuse patient.[facility] HospitalIn the event this information is protected by the Federal Confidentiality of Alcohol and Drug Abuse Patient Records regulations: The Federal rules restrict any use of the information to criminally investigate or prosecute any alcohol or drug abuse patient.[facility] HospitalIn the event this information is protected by the Federal Confidentiality of Alcohol and Drug Abuse Patient Records regulations: The Federal rules restrict any use of the information to criminally investigate or prosecute any alcohol or drug abuse patient.[facility] HospitalIn the event this information is protected by the Federal Confidentiality of Alcohol and Drug Abuse Patient Records regulations: The Federal rules restrict any use of the information to criminally investigate or prosecute any alcohol or drug abuse patient.[facility] HospitalIn the event this information is protected by the Federal Confidentiality of Alcohol and Drug Abuse Patient Records regulations: The Federal rules restrict any use of the information to criminally investigate or prosecute any alcohol or drug abuse patient.[facility] HospitalIn the event this information is protected by the Federal Confidentiality of Alcohol and Drug Abuse Patient Records regulations: The Federal rules restrict any use of the information to criminally investigate or prosecute any alcohol or drug abuse patient.[facility] HospitalIn the event this information is protected by the Federal Confidentiality of Alcohol and Drug Abuse Patient Records regulations: The Federal rules restrict any use of the information to criminally investigate or prosecute any alcohol or drug abuse patient.[facility] HospitalIn the event this information is protected by the Federal Confidentiality of Alcohol and Drug Abuse Patient Records regulations: The Federal rules restrict any use of the information to criminally investigate or prosecute any alcohol or drug abuse patient.[facility] HospitalIn the event this information is protected by the Federal Confidentiality of Alcohol and Drug Abuse Patient Records regulations: The Federal rules restrict any use of the information to criminally investigate or prosecute any alcohol or drug abuse patient.[facility] HospitalIn the event this information is protected by the Federal Confidentiality of Alcohol and Drug Abuse Patient Records regulations: The Federal rules restrict any use of the information to criminally investigate or prosecute any alcohol or drug abuse patient.[facility] HospitalIn the event this information is protected by the Federal Confidentiality of Alcohol and Drug Abuse Patient Records regulations: The Federal rules restrict any use of the information to criminally investigate or prosecute any alcohol or drug abuse patient.[facility] HospitalIn the event this information is protected by the Federal Confidentiality of Alcohol and Drug Abuse Patient Records regulations: The Federal rules restrict any use of the information to criminally investigate or prosecute any alcohol or drug abuse patient.[facility] HospitalIn the event this information is protected by the Federal Confidentiality of Alcohol and Drug Abuse Patient Records regulations: The Federal rules restrict any use of the information to criminally investigate or prosecute any alcohol or drug abuse patient.[facility] HospitalIn the event this information is protected by the Federal Confidentiality of Alcohol and Drug Abuse Patient Records regulations: The Federal rules restrict any use of the information to criminally investigate or prosecute any alcohol or drug abuse patient.[facility] HospitalIn the event this information is protected by the Federal Confidentiality of Alcohol and Drug Abuse Patient Records regulations: The Federal rules restrict any use of the information to criminally investigate or prosecute any alcohol or drug abuse patient.[facility] HospitalIn the event this information is protected by the Federal Confidentiality of Alcohol and Drug Abuse Patient Records regulations: The Federal rules restrict any use of the information to criminally investigate or prosecute any alcohol or drug abuse patient.[facility] HospitalIn the event this information is protected by the Federal Confidentiality of Alcohol and Drug Abuse Patient Records regulations: The Federal rules restrict any use of the information to criminally investigate or prosecute any alcohol or drug abuse patient.[facility] HospitalIn the event this information is protected by the Federal Confidentiality of Alcohol and Drug Abuse Patient Records regulations: The Federal rules restrict any use of the information to criminally investigate or prosecute any alcohol or drug abuse patient.[facility] HospitalIn the event this information is protected by the Federal Confidentiality of Alcohol and Drug Abuse Patient Records regulations: The Federal rules restrict any use of the information to criminally investigate or prosecute any alcohol or drug abuse patient.[facility] HospitalIn the event this information is protected by the Federal Confidentiality of Alcohol and Drug Abuse Patient Records regulations: The Federal rules restrict any use of the information to criminally investigate or prosecute any alcohol or drug abuse patient.[facility] HospitalIn the event this information is protected by the Federal Confidentiality of Alcohol and Drug Abuse Patient Records regulations: The Federal rules restrict any use of the information to criminally investigate or prosecute any alcohol or drug abuse patient.[facility] HospitalIn the event this information is protected by the Federal Confidentiality of Alcohol and Drug Abuse Patient Records regulations: The Federal rules restrict any use of the information to criminally investigate or prosecute any alcohol or drug abuse patient.[facility] HospitalIn the event this information is protected by the Federal Confidentiality of Alcohol and Drug Abuse Patient Records regulations: The Federal rules restrict any use of the information to criminally investigate or prosecute any alcohol or drug abuse patient.[facility] HospitalIn the event this information is protected by the Federal Confidentiality of Alcohol and Drug Abuse Patient Records regulations: The Federal rules restrict any use of the information to criminally investigate or prosecute any alcohol or drug abuse patient.[facility] HospitalIn the event this information is protected by the Federal Confidentiality of Alcohol and Drug Abuse Patient Records regulations: The Federal rules restrict any use of the information to criminally investigate or prosecute any alcohol or drug abuse patient.[facility] HospitalIn the event this information is protected by the Federal Confidentiality of Alcohol and Drug Abuse Patient Records regulations: The Federal rules restrict any use of the information to criminally investigate or prosecute any alcohol or drug abuse patient.[facility] HospitalIn the event this information is protected by the Federal Confidentiality of Alcohol and Drug Abuse Patient Records regulations: The Federal rules restrict any use of the information to criminally investigate or prosecute any alcohol or drug abuse patient.[facility] HospitalIn the event this information is protected by the Federal Confidentiality of Alcohol and Drug Abuse Patient Records regulations: The Federal rules restrict any use of the information to criminally investigate or prosecute any alcohol or drug abuse patient.[facility] HospitalIn the event this information is protected by the Federal Confidentiality of Alcohol and Drug Abuse Patient Records regulations: The Federal rules restrict any use of the information to criminally investigate or prosecute any alcohol or drug abuse patient.[facility] HospitalIn the event this information is protected by the Federal Confidentiality of Alcohol and Drug Abuse Patient Records regulations: The Federal rules restrict any use of the information to criminally investigate or prosecute any alcohol or drug abuse patient.[facility] HospitalIn the event this information is protected by the Federal Confidentiality of Alcohol and Drug Abuse Patient Records regulations: The Federal rules restrict any use of the information to criminally investigate or prosecute any alcohol or drug abuse patient.[facility] HospitalIn the event this information is protected by the Federal Confidentiality of Alcohol and Drug Abuse Patient Records regulations: The Federal rules restrict any use of the information to criminally investigate or prosecute any alcohol or drug abuse patient.[facility] HospitalIn the event this information is protected by the Federal Confidentiality of Alcohol and Drug Abuse Patient Records regulations: The Federal rules restrict any use of the information to criminally investigate or prosecute any alcohol or drug abuse patient.[facility] HospitalIn the event this information is protected by the Federal Confidentiality of Alcohol and Drug Abuse Patient Records regulations: The Federal rules restrict any use of the information to criminally investigate or prosecute any alcohol or drug abuse patient.[facility] HospitalIn the event this information is protected by the Federal Confidentiality of Alcohol and Drug Abuse Patient Records regulations: The Federal rules restrict any use of the information to criminally investigate or prosecute any alcohol or drug abuse patient.[facility] HospitalIn the event this information is protected by the Federal Confidentiality of Alcohol and Drug Abuse Patient Records regulations: The Federal rules restrict any use of the information to criminally investigate or prosecute any alcohol or drug abuse patient.[facility] HospitalIn the event this information is protected by the Federal Confidentiality of Alcohol and Drug Abuse Patient Records regulations: The Federal rules restrict any use of the information to criminally investigate or prosecute any alcohol or drug abuse patient.[facility] HospitalIn the event this information is protected by the Federal Confidentiality of Alcohol and Drug Abuse Patient Records regulations: The Federal rules restrict any use of the information to criminally investigate or prosecute any alcohol or drug abuse patient.[facility] HospitalIn the event this information is protected by the Federal Confidentiality of Alcohol and Drug Abuse Patient Records regulations: The Federal rules restrict any use of the information to criminally investigate or prosecute any alcohol or drug abuse patient.[facility] HospitalIn the event this information is protected by the Federal Confidentiality of Alcohol and Drug Abuse Patient Records regulations: The Federal rules restrict any use of the information to criminally investigate or prosecute any alcohol or drug abuse patient.[facility] HospitalIn the event this information is protected by the Federal Confidentiality of Alcohol and Drug Abuse Patient Records regulations: The Federal rules restrict any use of the information to criminally investigate or prosecute any alcohol or drug abuse patient.[facility] HospitalIn the event this information is protected by the Federal Confidentiality of Alcohol and Drug Abuse Patient Records regulations: The Federal rules restrict any use of the information to criminally investigate or prosecute any alcohol or drug abuse patient.[facility] HospitalIn the event this information is protected by the Federal Confidentiality of Alcohol and Drug Abuse Patient Records regulations: The Federal rules restrict any use of the information to criminally investigate or prosecute any alcohol or drug abuse patient.[facility] HospitalIn the event this information is protected by the Federal Confidentiality of Alcohol and Drug Abuse Patient Records regulations: The Federal rules restrict any use of the information to criminally investigate or prosecute any alcohol or drug abuse patient.[facility] HospitalIn the event this information is protected by the Federal Confidentiality of Alcohol and Drug Abuse Patient Records regulations: The Federal rules restrict any use of the information to criminally investigate or prosecute any alcohol or drug abuse patient.[facility] HospitalIn the event this information is protected by the Federal Confidentiality of Alcohol and Drug Abuse Patient Records regulations: The Federal rules restrict any use of the information to criminally investigate or prosecute any alcohol or drug abuse patient.[facility] HospitalIn the event this information is protected by the Federal Confidentiality of Alcohol and Drug Abuse Patient Records regulations: The Federal rules restrict any use of the information to criminally investigate or prosecute any alcohol or drug abuse patient.[facility] HospitalIn the event this information is protected by the Federal Confidentiality of Alcohol and Drug Abuse Patient Records regulations: The Federal rules restrict any use of the information to criminally investigate or prosecute any alcohol or drug abuse patient.[facility] HospitalIn the event this information is protected by the Federal Confidentiality of Alcohol and Drug Abuse Patient Records regulations: The Federal rules restrict any use of the information to criminally investigate or prosecute any alcohol or drug abuse patient.[facility] HospitalIn the event this information is protected by the Federal Confidentiality of Alcohol and Drug Abuse Patient Records regulations: The Federal rules restrict any use of the information to criminally investigate or prosecute any alcohol or drug abuse patient.[facility] HospitalIn the event this information is protected by the Federal Confidentiality of Alcohol and Drug Abuse Patient Records regulations: The Federal rules restrict any use of the information to criminally investigate or prosecute any alcohol or drug abuse patient.[facility] HospitalIn the event this information is protected by the Federal Confidentiality of Alcohol and Drug Abuse Patient Records regulations: The Federal rules restrict any use of the information to criminally investigate or prosecute any alcohol or drug abuse patient.[facility] HospitalIn the event this information is protected by the Federal Confidentiality of Alcohol and Drug Abuse Patient Records regulations: The Federal rules restrict any use of the information to criminally investigate or prosecute any alcohol or drug abuse patient.[facility] HospitalIn the event this information is protected by the Federal Confidentiality of Alcohol and Drug Abuse Patient Records regulations: The Federal rules restrict any use of the information to criminally investigate or prosecute any alcohol or drug abuse patient.[facility] HospitalIn the event this information is protected by the Federal Confidentiality of Alcohol and Drug Abuse Patient Records regulations: The Federal rules restrict any use of the information to criminally investigate or prosecute any alcohol or drug abuse patient.[facility] HospitalIn the event this information is protected by the Federal Confidentiality of Alcohol and Drug Abuse Patient Records regulations: The Federal rules restrict any use of the information to criminally investigate or prosecute any alcohol or drug abuse patient.[facility] HospitalIn the event this information is protected by the Federal Confidentiality of Alcohol and Drug Abuse Patient Records regulations: The Federal rules restrict any use of the information to criminally investigate or prosecute any alcohol or drug abuse patient.[facility] HospitalIn the event this information is protected by the Federal Confidentiality of Alcohol and Drug Abuse Patient Records regulations: The Federal rules restrict any use of the information to criminally investigate or prosecute any alcohol or drug abuse patient.[facility] HospitalIn the event this information is protected by the Federal Confidentiality of Alcohol and Drug Abuse Patient Records regulations: The Federal rules restrict any use of the information to criminally investigate or prosecute any alcohol or drug abuse patient.[facility] HospitalIn the event this information is protected by the Federal Confidentiality of Alcohol and Drug Abuse Patient Records regulations: The Federal rules restrict any use of the information to criminally investigate or prosecute any alcohol or drug abuse patient.[facility] HospitalIn the event this information is protected by the Federal Confidentiality of Alcohol and Drug Abuse Patient Records regulations: The Federal rules restrict any use of the information to criminally investigate or prosecute any alcohol or drug abuse patient.[facility] HospitalIn the event this information is protected by the Federal Confidentiality of Alcohol and Drug Abuse Patient Records regulations: The Federal rules restrict any use of the information to criminally investigate or prosecute any alcohol or drug abuse patient.[facility] HospitalIn the event this information is protected by the Federal Confidentiality of Alcohol and Drug Abuse Patient Records regulations: The Federal rules restrict any use of the information to criminally investigate or prosecute any alcohol or drug abuse patient.[facility] HospitalIn the event this information is protected by the Federal Confidentiality of Alcohol and Drug Abuse Patient Records regulations: The Federal rules restrict any use of the information to criminally investigate or prosecute any alcohol or drug abuse patient.[facility] HospitalIn the event this information is protected by the Federal Confidentiality of Alcohol and Drug Abuse Patient Records regulations: The Federal rules restrict any use of the information to criminally investigate or prosecute any alcohol or drug abuse patient.[facility] HospitalIn the event this information is protected by the Federal Confidentiality of Alcohol and Drug Abuse Patient Records regulations: The Federal rules restrict any use of the information to criminally investigate or prosecute any alcohol or drug abuse patient.[facility] HospitalIn the event this information is protected by the Federal Confidentiality of Alcohol and Drug Abuse Patient Records regulations: The Federal rules restrict any use of the information to criminally investigate or prosecute any alcohol or drug abuse patient.[facility] HospitalIn the event this information is protected by the Federal Confidentiality of Alcohol and Drug Abuse Patient Records regulations: The Federal rules restrict any use of the information to criminally investigate or prosecute any alcohol or drug abuse patient.[facility] HospitalIn the event this information is protected by the Federal Confidentiality of Alcohol and Drug Abuse Patient Records regulations: The Federal rules restrict any use of the information to criminally investigate or prosecute any alcohol or drug abuse patient.[facility] HospitalIn the event this information is protected by the Federal Confidentiality of Alcohol and Drug Abuse Patient Records regulations: The Federal rules restrict any use of the information to criminally investigate or prosecute any alcohol or drug abuse patient.[facility] HospitalIn the event this information is protected by the Federal Confidentiality of Alcohol and Drug Abuse Patient Records regulations: The Federal rules restrict any use of the information to criminally investigate or prosecute any alcohol or drug abuse patient.[facility] HospitalIn the event this information is protected by the Federal Confidentiality of Alcohol and Drug Abuse Patient Records regulations: The Federal rules restrict any use of the information to criminally investigate or prosecute any alcohol or drug abuse patient.[facility] HospitalIn the event this information is protected by the Federal Confidentiality of Alcohol and Drug Abuse Patient Records regulations: The Federal rules restrict any use of the information to criminally investigate or prosecute any alcohol or drug abuse patient.[facility] HospitalIn the event this information is protected by the Federal Confidentiality of Alcohol and Drug Abuse Patient Records regulations: The Federal rules restrict any use of the information to criminally investigate or prosecute any alcohol or drug abuse patient.[facility] HospitalIn the event this information is protected by the Federal Confidentiality of Alcohol and Drug Abuse Patient Records regulations: The Federal rules restrict any use of the information to criminally investigate or prosecute any alcohol or drug abuse patient.[facility] HospitalIn the event this information is protected by the Federal Confidentiality of Alcohol and Drug Abuse Patient Records regulations: The Federal rules restrict any use of the information to criminally investigate or prosecute any alcohol or drug abuse patient.[facility] HospitalIn the event this information is protected by the Federal Confidentiality of Alcohol and Drug Abuse Patient Records regulations: The Federal rules restrict any use of the information to criminally investigate or prosecute any alcohol or drug abuse patient.[facility] HospitalIn the event this information is protected by the Federal Confidentiality of Alcohol and Drug Abuse Patient Records regulations: The Federal rules restrict any use of the information to criminally investigate or prosecute any alcohol or drug abuse patient.[facility] HospitalIn the event this information is protected by the Federal Confidentiality of Alcohol and Drug Abuse Patient Records regulations: The Federal rules restrict any use of the information to criminally investigate or prosecute any alcohol or drug abuse patient.[facility] HospitalIn the event this information is protected by the Federal Confidentiality of Alcohol and Drug Abuse Patient Records regulations: The Federal rules restrict any use of the information to criminally investigate or prosecute any alcohol or drug abuse patient.[facility] HospitalIn the event this information is protected by the Federal Confidentiality of Alcohol and Drug Abuse Patient Records regulations: The Federal rules restrict any use of the information to criminally investigate or prosecute any alcohol or drug abuse patient.[facility] HospitalIn the event this information is protected by the Federal Confidentiality of Alcohol and Drug Abuse Patient Records regulations: The Federal rules restrict any use of the information to criminally investigate or prosecute any alcohol or drug abuse patient.[facility] HospitalIn the event this information is protected by the Federal Confidentiality of Alcohol and Drug Abuse Patient Records regulations: The Federal rules restrict any use of the information to criminally investigate or prosecute any alcohol or drug abuse patient.[facility] HospitalIn the event this information is protected by the Federal Confidentiality of Alcohol and Drug Abuse Patient Records regulations: The Federal rules restrict any use of the information to criminally investigate or prosecute any alcohol or drug abuse patient.[facility] HospitalIn the event this information is protected by the Federal Confidentiality of Alcohol and Drug Abuse Patient Records regulations: The Federal rules restrict any use of the information to criminally investigate or prosecute any alcohol or drug abuse patient.[facility] HospitalIn the event this information is protected by the Federal Confidentiality of Alcohol and Drug Abuse Patient Records regulations: The Federal rules restrict any use of the information to criminally investigate or prosecute any alcohol or drug abuse patient.[facility] HospitalIn the event this information is protected by the Federal Confidentiality of Alcohol and Drug Abuse Patient Records regulations: The Federal rules restrict any use of the information to criminally investigate or prosecute any alcohol or drug abuse patient.[facility] HospitalIn the event this information is protected by the Federal Confidentiality of Alcohol and Drug Abuse Patient Records regulations: The Federal rules restrict any use of the information to criminally investigate or prosecute any alcohol or drug abuse patient.[facility] HospitalIn the event this information is protected by the Federal Confidentiality of Alcohol and Drug Abuse Patient Records regulations: The Federal rules restrict any use of the information to criminally investigate or prosecute any alcohol or drug abuse patient.[facility] HospitalIn the event this information is protected by the Federal Confidentiality of Alcohol and Drug Abuse Patient Records regulations: The Federal rules restrict any use of the information to criminally investigate or prosecute any alcohol or drug abuse patient.[facility] HospitalIn the event this information is protected by the Federal Confidentiality of Alcohol and Drug Abuse Patient Records regulations: The Federal rules restrict any use of the information to criminally investigate or prosecute any alcohol or drug abuse patient.[facility] HospitalIn the event this information is protected by the Federal Confidentiality of Alcohol and Drug Abuse Patient Records regulations: The Federal rules restrict any use of the information to criminally investigate or prosecute any alcohol or drug abuse patient.[facility] HospitalIn the event this information is protected by the Federal Confidentiality of Alcohol and Drug Abuse Patient Records regulations: The Federal rules restrict any use of the information to criminally investigate or prosecute any alcohol or drug abuse patient.[facility] HospitalIn the event this information is protected by the Federal Confidentiality of Alcohol and Drug Abuse Patient Records regulations: The Federal rules restrict any use of the information to criminally investigate or prosecute any alcohol or drug abuse patient.[facility] HospitalIn the event this information is protected by the Federal Confidentiality of Alcohol and Drug Abuse Patient Records regulations: The Federal rules restrict any use of the information to criminally investigate or prosecute any alcohol or drug abuse patient.[facility] HospitalIn the event this information is protected by the Federal Confidentiality of Alcohol and Drug Abuse Patient Records regulations: The Federal rules restrict any use of the information to criminally investigate or prosecute any alcohol or drug abuse patient.[facility] HospitalIn the event this information is protected by the Federal Confidentiality of Alcohol and Drug Abuse Patient Records regulations: The Federal rules restrict any use of the information to criminally investigate or prosecute any alcohol or drug abuse patient.[facility] HospitalIn the event this information is protected by the Federal Confidentiality of Alcohol and Drug Abuse Patient Records regulations: The Federal rules restrict any use of the information to criminally investigate or prosecute any alcohol or drug abuse patient.[facility] HospitalIn the event this information is protected by the Federal Confidentiality of Alcohol and Drug Abuse Patient Records regulations: The Federal rules restrict any use of the information to criminally investigate or prosecute any alcohol or drug abuse patient.[facility] HospitalIn the event this information is protected by the Federal Confidentiality of Alcohol and Drug Abuse Patient Records regulations: The Federal rules restrict any use of the information to criminally investigate or prosecute any alcohol or drug abuse patient.[facility] HospitalIn the event this information is protected by the Federal Confidentiality of Alcohol and Drug Abuse Patient Records regulations: The Federal rules restrict any use of the information to criminally investigate or prosecute any alcohol or drug abuse patient.[facility] HospitalIn the event this information is protected by the Federal Confidentiality of Alcohol and Drug Abuse Patient Records regulations: The Federal rules restrict any use of the information to criminally investigate or prosecute any alcohol or drug abuse patient.[facility] HospitalIn the event this information is protected by the Federal Confidentiality of Alcohol and Drug Abuse Patient Records regulations: The Federal rules restrict any use of the information to criminally investigate or prosecute any alcohol or drug abuse patient.[facility]In the event this information is protected by the Federal Confidentiality of Alcohol and Drug Abuse Patient Records regulations: The Federal rules restrict any use of the information to criminally investigate or prosecute any alcohol or drug abuse patient.[facility] HospitalIn the event this information is protected by the Federal Confidentiality of Alcohol and Drug Abuse Patient Records regulations: The Federal rules restrict any use of the information to criminally investigate or prosecute any alcohol or drug abuse patient.[facility] HospitalIn the event this information is protected by the Federal Confidentiality of Alcohol and Drug Abuse Patient Records regulations: The Federal rules restrict any use of the information to criminally investigate or prosecute any alcohol or drug abuse patient.[facility] HospitalIn the event this information is protected by the Federal Confidentiality of Alcohol and Drug Abuse Patient Records regulations: The Federal rules restrict any use of the information to criminally investigate or prosecute any alcohol or drug abuse patient.[facility]In the event this information is protected by the Federal Confidentiality of Alcohol and Drug Abuse Patient Records regulations: The Federal rules restrict any use of the information to criminally investigate or prosecute any alcohol or drug abuse patient.[facility]In the event this information is protected by the Federal Confidentiality of Alcohol and Drug Abuse Patient Records regulations: The Federal rules restrict any use of the information to criminally investigate or prosecute any alcohol or drug abuse patient.[facility] HospitalIn the event this information is protected by the Federal Confidentiality of Alcohol and Drug Abuse Patient Records regulations: The Federal rules restrict any use of the information to criminally investigate or prosecute any alcohol or drug abuse patient.[facility] HospitalIn the event this information is protected by the Federal Confidentiality of Alcohol and Drug Abuse Patient Records regulations: The Federal rules restrict any use of the information to criminally investigate or prosecute any alcohol or drug abuse patient.[facility]In the event this information is protected by the Federal Confidentiality of Alcohol and Drug Abuse Patient Records regulations: The Federal rules restrict any use of the information to criminally investigate or prosecute any alcohol or drug abuse patient.[facility]In the event this information is protected by the Federal Confidentiality of Alcohol and Drug Abuse Patient Records regulations: The Federal rules restrict any use of the information to criminally investigate or prosecute any alcohol or drug abuse patient.[facility] HospitalIn the event this information is protected by the Federal Confidentiality of Alcohol and Drug Abuse Patient Records regulations: The Federal rules restrict any use of the information to criminally investigate or prosecute any alcohol or drug abuse patient.[facility] HospitalIn the event this information is protected by the Federal Confidentiality of Alcohol and Drug Abuse Patient Records regulations: The Federal rules restrict any use of the information to criminally investigate or prosecute any alcohol or drug abuse patient.[facility] HospitalIn the event this information is protected by the Federal Confidentiality of Alcohol and Drug Abuse Patient Records regulations: The Federal rules restrict any use of the information to criminally investigate or prosecute any alcohol or drug abuse patient.[facility]In the event this information is protected by the Federal Confidentiality of Alcohol and Drug Abuse Patient Records regulations: The Federal rules restrict any use of the information to criminally investigate or prosecute any alcohol or drug abuse patient.[facility] HospitalIn the event this information is protected by the Federal Confidentiality of Alcohol and Drug Abuse Patient Records regulations: The Federal rules restrict any use of the information to criminally investigate or prosecute any alcohol or drug abuse patient.[facility] HospitalIn the event this information is protected by the Federal Confidentiality of Alcohol and Drug Abuse Patient Records regulations: The Federal rules restrict any use of the information to criminally investigate or prosecute any alcohol or drug abuse patient.[facility] HospitalIn the event this information is protected by the Federal Confidentiality of Alcohol and Drug Abuse Patient Records regulations: The Federal rules restrict any use of the information to criminally investigate or prosecute any alcohol or drug abuse patient.[facility] HospitalIn the event this information is protected by the Federal Confidentiality of Alcohol and Drug Abuse Patient Records regulations: The Federal rules restrict any use of the information to criminally investigate or prosecute any alcohol or drug abuse patient.[facility] HospitalIn the event this information is protected by the Federal Confidentiality of Alcohol and Drug Abuse Patient Records regulations: The Federal rules restrict any use of the information to criminally investigate or prosecute any alcohol or drug abuse patient.[facility] HospitalIn the event this information is protected by the Federal Confidentiality of Alcohol and Drug Abuse Patient Records regulations: The Federal rules restrict any use of the information to criminally investigate or prosecute any alcohol or drug abuse patient.[facility] HospitalIn the event this information is protected by the Federal Confidentiality of Alcohol and Drug Abuse Patient Records regulations: The Federal rules restrict any use of the information to criminally investigate or prosecute any alcohol or drug abuse patient.[facility] HospitalIn the event this information is protected by the Federal Confidentiality of Alcohol and Drug Abuse Patient Records regulations: The Federal rules restrict any use of the information to criminally investigate or prosecute any alcohol or drug abuse patient.[facility] HospitalIn the event this information is protected by the Federal Confidentiality of Alcohol and Drug Abuse Patient Records regulations: The Federal rules restrict any use of the information to criminally investigate or prosecute any alcohol or drug abuse patient.[facility] HospitalIn the event this information is protected by the Federal Confidentiality of Alcohol and Drug Abuse Patient Records regulations: The Federal rules restrict any use of the information to criminally investigate or prosecute any alcohol or drug abuse patient.[facility] HospitalIn the event this information is protected by the Federal Confidentiality of Alcohol and Drug Abuse Patient Records regulations: The Federal rules restrict any use of the information to criminally investigate or prosecute any alcohol or drug abuse patient.[facility] HospitalIn the event this information is protected by the Federal Confidentiality of Alcohol and Drug Abuse Patient Records regulations: The Federal rules restrict any use of the information to criminally investigate or prosecute any alcohol or drug abuse patient.[facility] HospitalIn the event this information is protected by the Federal Confidentiality of Alcohol and Drug Abuse Patient Records regulations: The Federal rules restrict any use of the information to criminally investigate or prosecute any alcohol or drug abuse patient.[facility] HospitalIn the event this information is protected by the Federal Confidentiality of Alcohol and Drug Abuse Patient Records regulations: The Federal rules restrict any use of the information to criminally investigate or prosecute any alcohol or drug abuse patient.[facility] HospitalIn the event this information is protected by the Federal Confidentiality of Alcohol and Drug Abuse Patient Records regulations: The Federal rules restrict any use of the information to criminally investigate or prosecute any alcohol or drug abuse patient.[facility] HospitalIn the event this information is protected by the Federal Confidentiality of Alcohol and Drug Abuse Patient Records regulations: The Federal rules restrict any use of the information to criminally investigate or prosecute any alcohol or drug abuse patient.[facility] HospitalIn the event this information is protected by the Federal Confidentiality of Alcohol and Drug Abuse Patient Records regulations: The Federal rules restrict any use of the information to criminally investigate or prosecute any alcohol or drug abuse patient.[facility] HospitalIn the event this information is protected by the Federal Confidentiality of Alcohol and Drug Abuse Patient Records regulations: The Federal rules restrict any use of the information to criminally investigate or prosecute any alcohol or drug abuse patient.[facility] HospitalIn the event this information is protected by the Federal Confidentiality of Alcohol and Drug Abuse Patient Records regulations: The Federal rules restrict any use of the information to criminally investigate or prosecute any alcohol or drug abuse patient.[facility] HospitalIn the event this information is protected by the Federal Confidentiality of Alcohol and Drug Abuse Patient Records regulations: The Federal rules restrict any use of the information to criminally investigate or prosecute any alcohol or drug abuse patient.[facility] HospitalIn the event this information is protected by the Federal Confidentiality of Alcohol and Drug Abuse Patient Records regulations: The Federal rules restrict any use of the information to criminally investigate or prosecute any alcohol or drug abuse patient.[facility] HospitalIn the event this information is protected by the Federal Confidentiality of Alcohol and Drug Abuse Patient Records regulations: The Federal rules restrict any use of the information to criminally investigate or prosecute any alcohol or drug abuse patient.[facility] HospitalIn the event this information is protected by the Federal Confidentiality of Alcohol and Drug Abuse Patient Records regulations: The Federal rules restrict any use of the information to criminally investigate or prosecute any alcohol or drug abuse patient.[facility] HospitalIn the event this information is protected by the Federal Confidentiality of Alcohol and Drug Abuse Patient Records regulations: The Federal rules restrict any use of the information to criminally investigate or prosecute any alcohol or drug abuse patient.[facility] HospitalIn the event this information is protected by the Federal Confidentiality of Alcohol and Drug Abuse Patient Records regulations: The Federal rules restrict any use of the information to criminally investigate or prosecute any alcohol or drug abuse patient.[facility] HospitalIn the event this information is protected by the Federal Confidentiality of Alcohol and Drug Abuse Patient Records regulations: The Federal rules restrict any use of the information to criminally investigate or prosecute any alcohol or drug abuse patient.[facility] HospitalIn the event this information is protected by the Federal Confidentiality of Alcohol and Drug Abuse Patient Records regulations: The Federal rules restrict any use of the information to criminally investigate or prosecute any alcohol or drug abuse patient.[facility] HospitalIn the event this information is protected by the Federal Confidentiality of Alcohol and Drug Abuse Patient Records regulations: The Federal rules restrict any use of the information to criminally investigate or prosecute any alcohol or drug abuse patient.[facility] HospitalIn the event this information is protected by the Federal Confidentiality of Alcohol and Drug Abuse Patient Records regulations: The Federal rules restrict any use of the information to criminally investigate or prosecute any alcohol or drug abuse patient.[facility] HospitalIn the event this information is protected by the Federal Confidentiality of Alcohol and Drug Abuse Patient Records regulations: The Federal rules restrict any use of the information to criminally investigate or prosecute any alcohol or drug abuse patient.[facility] HospitalIn the event this information is protected by the Federal Confidentiality of Alcohol and Drug Abuse Patient Records regulations: The Federal rules restrict any use of the information to criminally investigate or prosecute any alcohol or drug abuse patient.[facility] HospitalIn the event this information is protected by the Federal Confidentiality of Alcohol and Drug Abuse Patient Records regulations: The Federal rules restrict any use of the information to criminally investigate or prosecute any alcohol or drug abuse patient.[facility] HospitalIn the event this information is protected by the Federal Confidentiality of Alcohol and Drug Abuse Patient Records regulations: The Federal rules restrict any use of the information to criminally investigate or prosecute any alcohol or drug abuse patient.[facility] HospitalIn the event this information is protected by the Federal Confidentiality of Alcohol and Drug Abuse Patient Records regulations: The Federal rules restrict any use of the information to criminally investigate or prosecute any alcohol or drug abuse patient.[facility] HospitalIn the event this information is protected by the Federal Confidentiality of Alcohol and Drug Abuse Patient Records regulations: The Federal rules restrict any use of the information to criminally investigate or prosecute any alcohol or drug abuse patient.[facility] HospitalIn the event this information is protected by the Federal Confidentiality of Alcohol and Drug Abuse Patient Records regulations: The Federal rules restrict any use of the information to criminally investigate or prosecute any alcohol or drug abuse patient.[facility] HospitalIn the event this information is protected by the Federal Confidentiality of Alcohol and Drug Abuse Patient Records regulations: The Federal rules restrict any use of the information to criminally investigate or prosecute any alcohol or drug abuse patient.[facility] HospitalIn the event this information is protected by the Federal Confidentiality of Alcohol and Drug Abuse Patient Records regulations: The Federal rules restrict any use of the information to criminally investigate or prosecute any alcohol or drug abuse patient.[facility] HospitalIn the event this information is protected by the Federal Confidentiality of Alcohol and Drug Abuse Patient Records regulations: The Federal rules restrict any use of the information to criminally investigate or prosecute any alcohol or drug abuse patient.[facility] HospitalIn the event this information is protected by the Federal Confidentiality of Alcohol and Drug Abuse Patient Records regulations: The Federal rules restrict any use of the information to criminally investigate or prosecute any alcohol or drug abuse patient.[facility] HospitalIn the event this information is protected by the Federal Confidentiality of Alcohol and Drug Abuse Patient Records regulations: The Federal rules restrict any use of the information to criminally investigate or prosecute any alcohol or drug abuse patient.[facility] Reason for Visit (unrecogniz ed section and [...] HIGH COMPLEX 45 MINS Willam Estrada MD [address] [place] [address] [facility] [place] [address] [place] [address] Referral ID Status Reason Start Date Expiration Date Visits Requested Visits Authorized [id number] Authorized PCP Requested Referral Auto-Generate d Referral 04/06/2022 04/06/2023 99 99 Reason Comments Physical Therapy Reason Comments Medication Request Reason Onset Date Comments community monitoring outreach 12/13/2021 en rollment Reason Onset Date Comments community monitoring outreach 12/18/2021 en rollment Reason Comments Established Patient 2 month follow up Reason Comments Allied Health Visit [facility] on Reason Comments Diarrhea ongoing, [...] Felipe Jolly APRN.HEIDY [address] [place] [address] Referral ID Status Reason Start Date Expiration Date V isits Requested Visits Authorized [id number] Closed PCP Requested Referral 02/06/2022 02/06/2023 1 1 Reason Onset Date Comments Refill Request 02/23/2022 Reason Comments Follow Up Reason Comments 02-22-2022 COLON EGD LODI Reason Comments Hematuria Reason Comments PT Eval Reason Onset Date Comments Refill Request 04/11/2022 Reason Onset Date Comments Community monitoring outreach 05/15/2022 CD M [facility] triggered call Reason Onset Date Comments Refill [...] Comments Community monitoring outreach 12/04/2022 CD M [facility] triggered escalation Reason Onset Date Comments Refill [...] Comments Community Monitoring Outreach 03/14/2023 CD M [facility] Outreach Reason Comments Spirometry Specialty Diagnoses / Procedures Referred By Contac t Referred To Contact [facility] Diagnoses Stage 2 moderate COPD by GOLD classification ([facility]) Procedures LUNG DIFFUSION CAPACITY (DLCO) DIFFUSING CAPACITY Leila Rubi PA-C [address] [place] [address] [place] [address] Referral ID Status Reason Start Date Expiration Date V isits Requested Visits Authorized [id number] Closed Auto-Generate d Referral 12/21/2022 01/20/2024 1 1 Specialty Diagnoses / Procedures Referred By Contac t Referred To Contact [facility] Diagnoses Stage 2 moderate COPD by GOLD classification ([facility]) Procedures SPIROMETRY BASELINE ONLY SPMTRY W/VC EXPIRATORY WEST W/WO MXML VOL VNTJ Leila Rubi PA-C [address] [place] [address] [place] [address] Referral ID Status Reason Start Date Expiration Date V isits Requested Visits Authorized [id number] Closed Auto-Generate d Referral 12/21/2022 01/20/2024 1 [...] W/O CONTRAST MATERIAL Willam Estrada MD [address] [place] [address] [place] [address] Referral ID Status Reason Start Date Expiration Date V isits Requested Visits Authorized [id number] Closed Auto-Generate d Referral 08/07/2022 09/06/2023 1 1 Reason Comments Radiology US Specialty Diagnoses / Procedures Referred By Contac t Referred To Contact US IMAGING Diagnoses Lower abdominal pain Procedures US FEMALE PELVIS TRANSVAG US TRANSVAGINAL Diana Andres APRN.HOG FEEDER [address] [place] [address] Us Imaging [facility] Referral ID Status Reason Start Date Expiration Date V isits Requested Visits Authorized [id number] Closed Auto-Generate d Referral 07/09/2022 08/08/2023 1 [...] PRE&POST-BRNCDILAT Mona Kim MD [address] [place] [address] [facility] [address] [place] [address] Referral ID Status Reason Start Date Expiration Date V isits Requested Visits Authorized [id number] Closed Auto-Generate d Referral 11/05/2023 12/04/2024 1 1 Specialty Diagnoses / Procedures Referred By Contac t Referred To Contact [facility] Diagnoses Asthma with COPD (HCC) Procedures NITRIC OXIDE, EXHALED NITRIC OXIDE GAS DETERMINATION Mona Corrigan MD [address] [place] [address] [facility] [place] [address] [place] [address] Referral ID Status Reason Start Date Expiration Date V isits Requested Visits Authorized [id number] Closed Auto-Generate d Referral 11/05/2023 12/04/2024 1 [...] DOSE LNG CA SCR Margaret- Justyna Mora, SUPPLY CHAIN PROGRAM MANAGER.HOG FEEDER [address] [place] [address] [place] [address] Referral ID Status Reason Start Date Expiration Date V isits Requested Visits Authorized [id number] Closed Auto-Generate d Referral 11/11/2023 12/10/2024 1 1 Reason Comments Results Reason Comments Muscle biopsy Reason Comments Follow Up Results of multiple tests, discuss ongoing issues Reason Comments Results Reason Comments Orders Rn Embedded - Other Reason Comments Patient Question Reason [...] Dysuria Reason Comments ED Follow-up Hospital F/U [facility] follow up from - 03/24/24 Reason [...] THORAX W/O Mona Zuniga MD [address] [facility] [place] [address] [place] [address] Referral ID Status Reason Start Date Expiration Date V isits Requested Visits Authorized [id number] Closed Auto-Generate d Referral 06/22/2024 06/06/2025 1 [...] MDM 60 MINUTES Willam Estrada MD [address] [place] [address] Referral ID Status Reason Start Date Expiration Date V isits Requested Visits Authorized [id number] Closed PCP Requested Referral 07/09/2024 07/09/2025 1 [...] Established Patient Pneumonia Reason Comments ER F/U [facility] 08/02/24-Pneumon ia & Hypotension Reason Comments [...] TOMOGRAPHY THORAX LW DOSE LNG CA SCR Mragaret- Justyna Mora, SUPPLY CHAIN PROGRAM MANAGER.HOG FEEDER [address] [place] [address] Phone: tel: fax: [facility] [place] [address] Referral ID Status Reason Start Date Expiration Date V isits Requested Visits Authorized [id number] Closed Auto-Generate d Referral 11/25/2023 12/24/2024 1 1 Reason Comments Established Patient Neuropathy, tx kevin- c/o neuropathy worsening Specialty Diagnoses / Procedures Referred By Contac t Referred To Contact Neurology Diagnoses Type 2 diabetes mellitus with diabetic neuropathy, without long-term current use of insulin (HCC) Procedures CONSULT TO NEUROLOGY OFFICE/OUTPATIENT [facility] 60 MINUTES Willam Estrada MD [address] [place] [address] Phone: tel: fax: Referral ID Status Reason Start Date Expiration Date V isits Requested Visits Authorized [id number] Closed PCP Requested Referral 07/09/2024 07/09/2025 1 1 Reason Comments Established Patient COPD Reason Comments Follow Up question about [place] for albuterol inhaler, insurance no longer covers, [...] MINUTES Leila Rubi PA-C [address] [place] [address] Phone: tel: fax: Referral ID Status Reason Start Date Expiration Date V isits Requested Visits Authorized [id number] Closed PCP Requested Referral 11/25/2024 11/25/2025 1 1 Reason Onset Date Comments Refill Request 03/07/2025 Care Teams (unrecognized sec tion and content) Acrobatic Rigger Relationship Specialty Start Date End Date Willam Estrada MD [address] [place] [address] PCP - General 01/15/06 Acrobatic Rigger Relationship Specialty Start Date End Date Willam Estrada MD [address] [place] [address] PCP - General 01/15/06 Acrobatic Rigger Relationship Specialty Start Date End Date Willam Estrada MD [address] [place] [address] PCP - General 01/15/06 Acrobatic Rigger Relationship Specialty Start Date End Date Willam Estrada MD [facility] [place] [address] PCP - General 01/15/06 Kimmy Mariscal, HOWARD [address] [place] [address] Reproduction Technician 12/18/21 Acrobatic Rigger Relationship Specialty Start Date End Date Willam Estrada MD [facility] [place], [place] [address] PCP - General 01/15/06 [place] [address] [place] [address] Reproduction Technician 12/18/21 Acrobatic Rigger Relationship Specialty Start Date End Date Willam Estrada MD [address] [place] [address] PCP - General 01/15/06 [place] [address] [place] [address] Reproduction Technician 12/18/21 Acrobatic Rigger Relationship Specialty Start Date End Date Willam Estrada MD [address] [place] [address] PCP - General 01/15/06 [place] [address] [place] [address] Reproduction Technician 12/18/21 Acrobatic Rigger Relationship Specialty Start Date End Date Willam Estrada MD [address] [place] [address] PCP - General 01/15/06 Leila Lawton, teletype or varitype keyboard operatorReproduction Technician 02/07/22 Acrobatic Rigger Relationship Specialty Start Date End Date Willam Estrada MD [address] [place] [address] PCP - General 01/15/06 [place] [address] [place] [address] Reproduction Technician 12/18/2102/06 Leila Lawton, teletype or varitype keyboard operatorReproduction Technician 02/07/22 Acrobatic Rigger Relationship Specialty Start Date End Date Willam Estrada MD [address] [place] [address] PCP - General 01/15/06 Leila Lawton, teletype or varitype keyboard operatorReproduction Technician 02/07/22 Acrobatic Rigger Relationship Specialty Start Date End Date Willam Estrada MD [address] [place] [address] PCP - General 01/15/06 Acrobatic Rigger Relationship Specialty Start Date End Date Willam Estrada MD [address] [place] [address] PCP - General 01/15/06 Leila Lawton, teletype or varitype keyboard operatorReproduction Technician 02/07/22 Acrobatic Rigger Relationship Specialty Start Date End Date Willam Estrada MD [address] [place] [address] PCP - General 01/15/06 [place] [address] [place] [id number] Reproduction Technician 12/18/2102/06 Acrobatic Rigger Relationship Specialty Start Date End Date Willam Estrada MD [address] [place] [address] PCP - General 01/15/06 Leila Lawton, teletype or varitype keyboard operatorReproduction Technician 02/07/22 Acrobatic Rigger Relationship Specialty Start Date End Date Willam Estrada MD [address] [place] [address] PCP - General 01/15/06 Leila Lawton, teletype or varitype keyboard operatorReproduction Technician 02/07/22 Acrobatic Rigger Relationship Specialty Start Date End Date Willam Estrada MD [address] [place] [address] PCP - General 01/15/06 Leila Lawton, teletype or varitype keyboard operatorReproduction Technician 02/07/22 Acrobatic Rigger Relationship Specialty Start Date End Date Willam Estrada MD [address] [facility] [address] PCP - General 01/15/06 Leila Lawton, teletype or varitype keyboard operatorReproduction Technician 02/07/22 Acrobatic Rigger Relationship Specialty Start Date End Date Willam Estrada MD [address] [facility] [address] PCP - General 01/15/06 Leila Lawton, teletype or varitype keyboard operatorReproduction Technician 02/07/22 Acrobatic Rigger Relationship Specialty Start Date End Date Willam Estrada MD [address] [facility] [address] PCP - General 01/15/06 Leila Lawton, teletype or varitype keyboard operatorReproduction Technician 02/07/22 Acrobatic Rigger Relationship Specialty Start Date End Date Willam Estrada MD [address] [facility] [address] PCP - General 01/15/06 Leila Lawton, teletype or varitype keyboard operatorReproduction Technician 02/07/22 Acrobatic Rigger Relationship Specialty Start Date End Date Willam Estrada MD [address] [facility] [address] PCP - General 01/15/06 Leila Lawton, teletype or varitype keyboard operatorReproduction Technician 02/07/22 Acrobatic Rigger Relationship Specialty Start Date End Date Willam Estrada MD [address] [facility] [address] PCP - General 01/15/06 Leila Lawton, teletype or varitype keyboard operatorReproduction Technician 02/07/22 Acrobatic Rigger Relationship Specialty Start Date End Date Willam Estrada MD [address] [facility] [address] PCP - General 01/15/06 Leila Lawton, teletype or varitype keyboard operatorReproduction Technician 02/07/22 Acrobatic Rigger Relationship Specialty Start Date End Date Willam Estrada MD [address] [facility] [place] [address] PCP - General 01/15/06 Leila Lawton, teletype or varitype keyboard operatorReproduction Technician 02/07/22 Acrobatic Rigger Relationship Specialty Start Date End Date Willam Estrada MD [address] [facility] [address] PCP - General 01/15/06 Rola Browne, RN [address] [place] [address] Reproduction Technician 02/07/22 Acrobatic Rigger Relationship Specialty Start Date End Date Willam Estrada MD [address] [facility] [place] [address] PCP - General 01/15/06 Rola Browne, RN [address] [place] [place] [address] Reproduction Technician 02/07/22 Acrobatic Rigger Relationship Specialty Start Date End Date Willam Estrada MD [address] [facility] [address] PCP - General 01/15/06 Rola Browne, RN [address] [place] [place] [address] Reproduction Technician 02/07/22 Acrobatic Rigger Relationship Specialty Start Date End Date Willam Estrada MD [address] [facility] [address] PCP - General 01/15/06 Rola Browne, RN [address] [place] [place] [address] Reproduction Technician 02/07/22 Acrobatic Rigger Relationship Specialty Start Date End Date Willam Estrada MD [address] [facility] [place] [address] PCP - General 01/15/06 Rola Browne, RN [address] [place] [address] Reproduction Technician 07/08/22 Acrobatic Rigger Relationship Specialty Start Date End Date Willam Estrada MD [address] [facility] [address] PCP - General 01/15/06 Rola Browne, RN [address] [place] [address] Reproduction Technician 07/08/22 Acrobatic Rigger Relationship Specialty Start Date End Date Willam Estrada MD [address] [facility] [place] [address] PCP - General 01/15/06 Rola Browne, RN [address] [place] [address] Reproduction Technician 07/08/22 Acrobatic Rigger Relationship Specialty Start Date End Date Willam Estrada MD [facility] [place] [address] PCP - General 01/15/06 Rola Browne, RN [address] [place] [address] Reproduction Technician 07/08/22 Acrobatic Rigger Relationship Specialty Start Date End Date Willam Estrada MD [facility] [place] [address] PCP - General 01/15/06 Rola Browne, RN [address] [place] [address] Reproduction Technician 07/08/22 Acrobatic Rigger Relationship Specialty Start Date End Date Willam Estrada MD [address] [facility] [place] [address] PCP - General 01/15/06 Rola Browne, RN [address] [place] [address] Reproduction Technician 07/08/22 Acrobatic Rigger Relationship Specialty Start Date End Date Willam Estrada MD [address] [facility] [place] [address] PCP - General 01/15/06 Rola Browne, RN [address] [place] [address] Reproduction Technician 07/08/22 Acrobatic Rigger Relationship Specialty Start Date End Date Willam Estrada MD [address] [place] [address] PCP - General 01/15/06 Rola Browne, RN [address] [place] [address] Reproduction Technician 07/08/22 Team Status: Active Member Role Status [...] Dr. Mona Corrigan MD Attending Provider Active Acrobatic Rigger Relationship Specialty Start Date End Date Willam Estrada MD [address] [place] [address] PCP - General 01/15/06 Rola Browne RN [address] [facility] [place] [address] Reproduction Technician 07/08/22 Acrobatic Rigger Relationship Specialty Start Date End Date Willam Estrada MD [address] [facility] [place] [address] PCP - General 01/15/06 Rola Browne RN [address] [place] [address] Reproduction Technician 07/08/22 Acrobatic Rigger Relationship Specialty Start Date End Date Willam Estrada MD [address] [facility] [place] [address] PCP - General 01/15/06 Rola Browne, RN [address] [place] [address] Reproduction Technician 07/08/22 Acrobatic Rigger Relationship Specialty Start Date End Date Willam Estrada MD [address] [facility] [place] [address] PCP - General 01/15/06 Rola Browne, RN [address] [place] [address] Reproduction Technician 07/08/22 Team Status: Inactive Member Role Status Dates Dr. Willam Estrada MD Primary Care Provider Active Booker Barrett MD Emergency Provider Active Acrobatic Rigger Relationship Specialty Start Date End Date Willam Estrada MD [address] [facility] [place] [address] PCP - General 01/15/06 Rola Browne RN [address] [place] [address] Reproduction Technician 07/08/22 Acrobatic Rigger Relationship Specialty Start Date End Date Willam Estrada MD [address] [facility] [place] [address] PCP - General 01/15/06 Rola Browne RN [address] [place] [address] Reproduction Technician 07/08/22 Team Status: Inactive Member Role Status Dates Dr. Willam Estrada MD Primary Care Provider, Referr ing Provider Active Carrie Sheikh SPECIAL EDUCATION PROFESSOR, SPECIAL EDUCATION PROFESSOR-C Attending Provider Active Team Status: Inactive Member Role Status Dates Dr. Willam Estrada MD Primary Care Provider Active Booker Barrett MD Attending Provider, Emergency Provid er Active Team Status: Inactive Member Role Status Dates Dr. Willam Estrada MD Primary Care Provider Active Carrie Sheikh SPECIAL EDUCATION PROFESSOR, SPECIAL EDUCATION PROFESSOR-C Attending Provider Active Team Status: Active Member Role Status Dates Dr. Willam Estrada MD Primary Care Provider Active Carrie Sheikh SPECIAL EDUCATION PROFESSOR, SPECIAL EDUCATION PROFESSOR-C Attending Provider Active Acrobatic Rigger Relationship Specialty Start Date End Date Willam Estrada MD [address] [facility] [address] PCP - General 01/15/06 Rola Browne, RN [address] [place] [address] Reproduction Technician 07/08/22 Team Status: Inactive Member Role Status Dates Dr. Willam Estrada MD Primary Care Provider Active Carrie Sheikh SPECIAL EDUCATION PROFESSOR, SPECIAL EDUCATION PROFESSOR-C Attending Provider, Referrin g Provider Active Team Status: Inactive Member Role Status Dates Dr. Willam Estrada MD Primary Care Provider, Referr ing Provider Active Dr. Uriel Caceres DO Attending Provider Active Team Status: Inactive Member Role Status Dates Dr. Willam Estrada MD Primary Care Provider Active Dr. Uriel Caceres DO Attending Provider, Referring Provider Active Acrobatic Rigger Relationship Specialty Start Date End Date Willam Estrada MD [address] [facility] [address] PCP - General 01/15/06 Rola Browne RN [address] [place] [address] Reproduction Technician 07/08/22 Acrobatic Rigger Relationship Specialty Start Date End Date Willam Estrada MD [address] [facility] [place] [address] PCP - General 01/15/06 Rola Browne RN [address] [place] [address] Reproduction Technician 07/08/22 Acrobatic Rigger Relationship Specialty Start Date End Date Willam Estrada MD [address] [place] [address] PCP - General 01/15/06 Rola Browne, RN [address] [place] [address] Reproduction Technician 07/08/22 Acrobatic Rigger Relationship Specialty Start Date End Date Willam Estrada MD [address] [facility] [place] [address] PCP - General 01/15/06 Rola Browne, RN [address] [place] [address] Reproduction Technician 07/08/22 Team Status: Inactive Member Role Status Dates Dr. Willam Estrada MD Primary Care Provider Active Dr. Diogo Garza DO Emergency Provider Active Acrobatic Rigger Relationship Specialty Start Date End Date Willam Estrada MD [address] [facility] [place] [address] PCP - General 01/15/06 Rola Browne, RN [address] [place] [address] Reproduction Technician 07/08/22 Acrobatic Rigger Relationship Specialty Start Date End Date Willam Estrada MD [address] [facility] [place] [address] PCP - General 01/15/06 Rola Browne RN [address] [place] [address] Reproduction Technician 07/08/22 Acrobatic Rigger Relationship Specialty Start Date End Date Willam Estrada MD [address] [facility] [place] [address] PCP - General 01/15/06 Rola Browne, RN [address] [place] [address] Reproduction Technician 07/08/22 Team Status: Inactive Member Role Status [...] Dr. Corey Rubi MD Emergency Provider Active Acrobatic Rigger Relationship Specialty Start Date End Date Willam Estrada MD [address] [facility] [place] [address] PCP - General 01/15/06 Rola Browne RN [address] [place] [address] Reproduction Technician 07/08/22 Team Status: Active Member Role Status Dates Dr. Willam Estrada MD Primary Care Provider, Referr ing Provider Active Dr. Uriel Caceres , Attending Provider, Other Prov ider Active Acrobatic Rigger Relationship Specialty Start Date End Date Willam Estrada MD [address] [facility] [place] [address] PCP - General 01/15/06 Rola Browne RN [address] [place] [address] Reproduction Technician 07/08/22 Acrobatic Rigger Relationship Specialty Start Date End Date Willam Estrada MD [address] [facility] [place] [address] PCP - General 01/15/06 Rola Browne RN [address] [place] [address] Reproduction Technician 07/08/22 Acrobatic Rigger Relationship Specialty Start Date End Date Willam Estrada MD [address] [facility] [place] [address] PCP - General 01/15/06 Rola Browne, RN [address] [place] [address] Reproduction Technician 07/08/22 Acrobatic Rigger Relationship Specialty Start Date End Date Willam Estrada MD [address] [facility] [place] [address] PCP - General 01/15/06 Rola Browne, RN [address] [place] [address] Reproduction Technician 07/08/22 Acrobatic Rigger Relationship Specialty Start Date End Date Willam Estrada MD [address] [facility] [place] [address] PCP - General 01/15/06 Rola Browne, RN [address] [place] [address] Reproduction Technician 07/08/22 Team Status: Inactive Member Role Status Dates Dr. Willam Estrada MD Primary Care Provider Active Dr. Jono Castro MD Emergency Provider Active Team Status: Inactive Member Role Status Dates Dr. Willam Estrada MD Primary Care Provider Active Dr. Corey Rubi MD Attending Provider, Emergency Provider Active Acrobatic Rigger Relationship Specialty Start Date End Date Willam Estrada MD [address] [facility] [place] [address] PCP - General 01/15/06 Rola Browne, RN [address] [place] [address] Reproduction Technician 07/08/22 Acrobatic Rigger Relationship Specialty Start Date End Date Willam Estrada MD [address] [place] [address] PCP - General 01/15/06 Rola Browne RN [address] [facility] [place] [address] Reproduction Technician 07/08/22 Mona Corrigan MD [address] [place] [address] Pulmonary and Critical Care Medicine 11/11/23 Acrobatic Rigger Relationship Specialty Start Date End Date Willam Estrada MD [address] [facility] [place] [address] PCP - General 01/15/06 Rola Browne RN [address] [facility] [place] [address] Reproduction Technician 07/08/22 Mona Corrigan MD [address] [place] [address] Pulmonary and Critical Care Medicine 11/11/23 Acrobatic Rigger Relationship Specialty Start Date End Date Willam Estrada MD [address] [facility] [place] [address] PCP - General 01/15/06 Rola Browne RN [address] [facility] [place] [address] Reproduction Technician 07/08/22 Mona Corrigan MD [address] [place] [address] Pulmonary and Critical Care Medicine 11/11/23 Acrobatic Rigger Relationship Specialty Start Date End Date Willam Estrada MD [address] [facility] [address] PCP - General 01/15/06 Rola Browne RN [address] [facility] [place] [address] Reproduction Technician 07/08/22 Mona Corrigan MD [address] [facility] [place] [address] Pulmonary and Critical Care Medicine 11/11/23 Acrobatic Rigger Relationship Specialty Start Date End Date Willam Estrada MD [address] [facility] [address] PCP - General 01/15/06 Rola Browne RN [address] [facility] [place] [address] Reproduction Technician 07/08/22 Mona Corrigan MD [address] [place] [address] Pulmonary and Critical Care Medicine 11/11/23 Acrobatic Rigger Relationship Specialty Start Date End Date Willam Estrada MD [address] [facility] [place] [address] PCP - General 01/15/06 Rola Browne RN [address] [facility] [place] [address] Reproduction Technician 07/08/22 Mona Corrigan MD [address] [facility] [place] [address] Pulmonary and Critical Care Medicine 11/11/23 Shaq Rush MD [address] [facility] [place] [address] Cardiology 11/25/23 Acrobatic Rigger Relationship Specialty Start Date End Date Willam Estrada MD [address] [facility] [place] [address] PCP - General 01/15/06 Rola Browne RN [address] [facility] [place] [address] Reproduction Technician 07/08/22 Mona Corrigan MD [address] [place] [address] Pulmonary and Critical Care Medicine 11/11/23 Shaq Rush MD [address] [place] [address] Cardiology 11/25/23 Acrobatic Rigger Relationship Specialty Start Date End Date Willam Estrada MD [address] [facility] [address] PCP - General 01/15/06 Rola Browne RN [address] [facility] [place] [address] Reproduction Technician 07/08/22 Mona Corrigan MD [address] [place] [address] Pulmonary and Critical Care Medicine 11/11/23 Shaq Rush MD [address] [place] [address] Cardiology 11/25/23 Acrobatic Rigger Relationship Specialty Start Date End Date Willam Estrada MD [address] [facility] [place] [address] PCP - General 01/15/06 Rola Browne RN [address] [facility] [place] [address] Reproduction Technician 07/08/22 Mona Corrigan MD [address] [place] [address] Pulmonary and Critical Care Medicine 11/11/23 Shaq Rush MD [address] [facility] [place] [address] Cardiology 11/25/23 Acrobatic Rigger Relationship Specialty Start Date End Date Willam Estrada MD [address] [facility] [place] [address] PCP - General 01/15/06 Rola Browne RN [address] [facility] [place] [address] Reproduction Technician 07/08/22 oMna Corrigan MD [address] [place] [address] Pulmonary and Critical Care Medicine 11/11/23 Shaq Rush MD [address] [facility] [address] [place] [address] Cardiology 11/25/23 Acrobatic Rigger Relationship Specialty Start Date End Date Willam Estrada MD [address] [facility] [address] PCP - General 01/15/06 Rola Browne RN [address] [facility] [place] [address] Reproduction Technician 07/08/22 Mona Corrigan MD [address] [place] [address] Pulmonary and Critical Care Medicine 11/11/23 Shaq Rush MD [address] [place] [address] Cardiology 11/25/23 Acrobatic Rigger Relationship Specialty Start Date End Date Willam Estrada MD [address] [facility] [place] [address] PCP - General 01/15/06 Rola Browne RN [address] [place], [place] [address] Reproduction Technician 07/08/22 Mona Corrigan MD [address] [place] [address] Pulmonary and Critical Care Medicine 11/11/23 Shaq Rush MD [address] [place] [address] Cardiology 11/25/23 Acrobatic Rigger Relationship Specialty Start Date End Date Willam Estrada MD [address] [facility] [place] [address] PCP - General 01/15/06 Rola Browne RN [address] [place] [address] Reproduction Technician 07/08/22 Mona Corrigan MD [address] [place] [address] Pulmonary and Critical Care Medicine 11/11/23 Shaq Rush MD [address] [place] [address] Cardiology 11/25/23 Acrobatic Rigger Relationship Specialty Start Date End Date Willam Estrada MD [address] [facility] [place] [address] PCP - General 01/15/06 Rola Browne RN [address] [place] [address] Reproduction Technician 07/08/22 Mona Corrigan MD [address] [place] [address] Pulmonary and Critical Care Medicine 11/11/23 Shaq Rush MD [address] [place] [address] Cardiology 11/25/23 Acrobatic Rigger Relationship Specialty Start Date End Date Willam Estrada MD [address] [facility] [place] [address] PCP - General 01/15/06 Rola Browne RN [address] [facility] [place] [address] Reproduction Technician 07/08/22 Mona Corrigan MD [address] [place] [address] Pulmonary and Critical Care Medicine 11/11/23 Shaq Rush MD [address] [facility] [address] [place] [address] Cardiology 11/25/23 Acrobatic Rigger Relationship Specialty Start Date End Date Willam Estrada MD [address] [facility] [place] [address] PCP - General 01/15/06 Rola Browne RN [address] [place] [address] Reproduction Technician 07/08/22 Mona Corrigan MD [address] [place] [address] Pulmonary and Critical Care Medicine 11/11/23 Shaq Rush MD [address] [place] [address] Cardiology 11/25/23 Alyssa Hathaway RN [address] [place] [address] Primary Care Mixer Tender 03/25/24 Acrobatic Rigger Relationship Specialty Start Date End Date Willam Estrada MD [address] [facility] [place] [address] PCP - General 01/15/06 Rola Browne RN [address] [facility] [place] [address] Reproduction Technician 07/08/22 Mona Corrigan MD [address] [place] [address] Pulmonary and Critical Care Medicine 11/11/23 Shaq Rush MD [address] [place] [address] Cardiology 11/25/23 Alyssa Hathaway RN [address] [place] [address] Primary Care Mixer Tender 03/25/24 Acrobatic Rigger Relationship Specialty Start Date End Date Willam Estrada MD [address] [facility] [address] PCP - General 01/15/06 Rola Browne RN [address] [place] [address] Reproduction Technician 07/08/22 Mona Corrigan MD [address] [place] [address] Pulmonary and Critical Care Medicine 11/11/23 Shaq Rush MD [address] [facility] [address] [place] [address] Cardiology 11/25/23 Alyssa Hathaway, HOWARD [address] [place] [address] Primary Care Mixer Tender 03/25/24 Acrobatic Rigger Relationship Specialty Start Date End Date Willam Estrada MD [address] [facility] [place] [address] PCP - General 01/15/06 Rola Browne RN [address] [facility] [place] [address] Reproduction Technician 07/08/22 Mona Corrigan MD [address] [place] [address] Pulmonary and Critical Care Medicine 11/11/23 Shaq Rush MD [address] [facility] [address] [place] [address] Cardiology 11/25/23 Alyssa Hathaway RN [address] [place] [address] Primary Care Mixer Tender 03/25/24 Acrobatic Rigger Relationship Specialty Start Date End Date Willam Estrada MD [address] [facility] [place] [address] PCP - General 01/15/06 Rola Browne RN [address] [place] [address] Reproduction Technician 07/08/22 Mona Corrigan MD [address] [place] [address] Pulmonary and Critical Care Medicine 11/11/23 Shaq Rush MD [address] [facility] [address] [place] [address] Cardiology 11/25/23 Alyssa Hathaway RN [address] [place] [address] Primary Care Mixer Tender 03/25/24 Acrobatic Rigger Relationship Specialty Start Date End Date Willam Estrada MD [address] [facility] [place] [address] PCP - General 01/15/06 Rola Browne RN [address] [place] [address] Reproduction Technician 07/08/22 Mona Corrigan MD [address] [place] [address] Pulmonary and Critical Care Medicine 11/11/23 Shaq Rush MD [address] [facility] [address] [place] [address] Cardiology 11/25/23 Alyssa Hathaway RN [address] [place] [address] Primary Care Mixer Tender 03/25/24 Acrobatic Rigger Relationship Specialty Start Date End Date Willam Estrada MD [address] [facility] [place] [address] PCP - General 01/15/06 Rola Browne RN [address] [place] [address] Reproduction Technician 07/08/22 Mona Corrigan MD [address] [place] [address] Pulmonary and Critical Care Medicine 11/11/23 Shaq Rush MD [address] [address] Cardiology 11/25/23 Alyssa Hathaway, HOWARD [address] [place] [address] Primary Care Mixer Tender 03/25/24 Acrobatic Rigger Relationship Specialty Start Date End Date Willam Estrada MD [address] [place] [address] PCP - General 01/15/06 Rola Browne RN [address] [place] [address] Reproduction Technician 07/08/22 Mona Corrigan MD [address] [place] [address] Pulmonary and Critical Care Medicine 11/11/23 Shaq Rush MD [address] [address] Cardiology 11/25/23 Alyssa Hathaway RN [address] [place] [address] Primary Care Mixer Tender 03/25/24 Acrobatic Rigger Relationship Specialty Start Date End Date Willam Estrada MD [address] [place] [address] PCP - General 01/15/06 Rola Browne, HOWARD [address] [place] [address] Reproduction Technician 07/08/22 Mona Corrigan MD [address] [place] [address] Pulmonary and Critical Care Medicine 11/11/23 Shaq Rush MD [address] [address] Cardiology 11/25/23 Acrobatic Rigger Relationship Specialty Start Date End Date Willam Estrada MD [address] [place] [address] PCP - General 01/15/06 Mona Corrigan MD [address] [place] [address] Pulmonary and Critical Care Medicine 11/11/23 Shaq Rush MD [address] [address] Cardiology 11/25/23 Oxana Pack RN Reproduction Technician 05/08/24 Acrobatic Rigger Relationship Specialty Start Date End Date Willam Estrada MD [address] [place] [address] PCP - General 01/15/06 Rola Browne RN [address] [place] [address] Reproduction Technician 07/08/22 05/07/24 Mona Corrigan MD [address] [place] [address] Pulmonary and Critical Care Medicine 11/11/23 Shaq Rush MD [address] [facility] [address] [place] [address] Cardiology 11/25/23 Alyssa Hathaway, HOWARD [address] [place] [address] Primary Care Mixer Tender 03/25/24 04/23/24 Acrobatic Rigger Relationship Specialty Start Date End Date Willam Estrada MD [address] [place] [address] PCP - General 01/15/06 Rola Browne RN [address] [place] [address] Reproduction Technician 07/08/22 05/07/24 Mona Corrigan MD [address] [place] [address] Pulmonary and Critical Care Medicine 11/11/23 Shaq Rush MD [address] [facility] [address] [place] [address] Cardiology 11/25/23 Acrobatic Rigger Relationship Specialty Start Date End Date Willam Estrada MD [address] [facility] [address] PCP - General 01/15/06 Rola Browne RN [address] [place] [address] Reproduction Technician 07/08/22 05/07/24 Mona Corrigan MD [address] [facility] [place] [address] Pulmonary and Critical Care Medicine 11/11/23 Shaq Rush MD [address] [facility] [address] [place] [address] Cardiology 11/25/23 Acrobatic Rigger Relationship Specialty Start Date End Date Willam Estrada MD [address] [facility] [address] PCP - General 01/15/06 Rola Browne RN [address] [place], [place] [address] Reproduction Technician 07/08/22 05/07/24 Mona Corrigan MD [address] [place] [address] Pulmonary and Critical Care Medicine 11/11/23 Shaq Rush MD [address] [place] [address] Cardiology 11/25/23 Alyssa Hathaway, HOWARD [address] [place] [address] Primary Care Mixer Tender 03/25/24 04/23/24 Acrobatic Rigger Relationship Specialty Start Date End Date Willam Estrada MD [address] [facility] [address] PCP - General 01/15/06 Mona Corrigan MD [address] [place] [address] Pulmonary and Critical Care Medicine 11/11/23 Shaq Rush MD [address] [facility] [address] [place] [address] Cardiology 11/25/23 [employer]ana Pack, teletype or varitype keyboard operatorReproduction Technician 05/08/24 Acrobatic Rigger Relationship Specialty Start Date End Date Willam Estrada MD [address] [facility] [address] PCP - General 01/15/06 Mona Corrigan MD [address] [facility] [place] [address] Pulmonary and Critical Care Medicine 11/11/23 Shaq Rush MD [address] [place] [address] Cardiology 11/25/23 [employer], teletype or varitype keyboard operatorReproduction Technician 05/08/24 Acrobatic Rigger Relationship Specialty Start Date End Date Willam Estrada MD [address] [facility] [address] PCP - General 01/15/06 Rola Browne RN [address] [place] [address] Reproduction Technician 07/08/2204/10 Acrobatic Rigger Relationship Specialty Start Date End Date Willam Estrada MD [address] [facility] [place] [address] PCP - General 01/15/06 Rola Browne RN [address] [place] [address] Reproduction Technician 07/08/2204/10 Acrobatic Rigger Relationship Specialty Start Date End Date Willam Estrada MD [address] [facility] [place] [address] PCP - General 01/15/06 Rola Browne RN [address] [place] [address] Reproduction Technician 07/08/2204/10 Acrobatic Rigger Relationship Specialty Start Date End Date Willam Estrada MD [address] [facility] [address] PCP - General 01/15/06 Leila Lawton, teletype or varitype keyboard operatorReproduction Technician 02/07/22 Acrobatic Rigger Relationship Specialty Start Date End Date Willam Estrada MD [address] [facility] [place] [address] PCP - General 01/15/06 Mona Corrigan MD [address] [facility] [place] [address] Pulmonary and Critical Care Medicine 11/11/23 Shaq Rush MD [address] [place] [address] Cardiology 11/25/23 Oxana Pack, teletype or varitype keyboard operatorReproduction Technician 05/08/24 Acrobatic Rigger Relationship Specialty Start Date End Date Willam Estrada MD [address] [facility] [place] [address] PCP - General 01/15/06 Leila Lawton, teletype or varitype keyboard operatorReproduction Technician 02/07/22 Acrobatic Rigger Relationship Specialty Start Date End Date Willam Estrada MD [address] [place] [address] PCP - General 01/15/06 Acrobatic Rigger Relationship Specialty Start Date End Date Willam Estrada MD [address] [place] [address] PCP - General 01/15/06 Acrobatic Rigger Relationship Specialty Start Date End Date Willam Estrada MD [address] [place] [address] PCP - General 01/15/06 Mona Corrigan MD [address] [place] [address] Pulmonary and Critical Care Medicine 11/11/23 Shaq Rush MD [address] [address] Cardiology 11/25/23 Oxana Pack, teletype or varitype keyboard operatorReproduction Technician 05/08/24 Acrobatic Rigger Relationship Specialty Start Date End Date Willam Estrada MD [address] [place] [address] PCP - General 01/15/06 Acrobatic Rigger Relationship Specialty Start Date End Date Willam Estrada MD [address] [place] [address] PCP - General 01/15/06 Mona Corrigan MD [address] [place] [address] Pulmonary and Critical Care Medicine 11/11/23 Shaq Rush MD [address] [address] Cardiology 11/25/23 Oxana Pack, teletype or varitype keyboard operatorReproduction Technician 05/08/24 Acrobatic Rigger Relationship Specialty Start Date End Date Willam Estrada MD [address] [facility] [place] [address] PCP - General 01/15/06 Mona Corrigan MD [address] [facility] [place] [address] Pulmonary and Critical Care Medicine 11/11/23 hSaq Rush MD [address] [place] [address] Cardiology 11/25/23 Oxana Pack RN Reproduction Technician 05/08/24 Acrobatic Rigger Relationship Specialty Start Date End Date Willam Estrada MD [address] [facility] [place] [address] PCP - General 01/15/06 Mona Corrigan MD [address] [place] [address] Pulmonary and Critical Care Medicine 11/11/23 Shaq Rush MD [address] [place] [address] Cardiology 11/25/23 Oxana Pack, teletype or varitype keyboard operatorReproduction Technician 05/08/24 Acrobatic Rigger Relationship Specialty Start Date End Date Willam Estrada MD [address] [facility] [address] PCP - General 01/15/06 Mona Corrigan MD [address] [place] [address] Pulmonary and Critical Care Medicine 11/11/23 Shaq Rush MD [address] [place] [address] Cardiology 11/25/23 Oxana Pack, teletype or varitype keyboard operatorReproduction Technician 05/08/24 Acrobatic Rigger Relationship Specialty Start Date End Date Willam Estrada MD [address] [facility] [place] [address] PCP - General 01/15/06 Mona Corrigan MD [address] [place] [address] Pulmonary and Critical Care Medicine 11/11/23 Shaq Rush MD [address] [place] [address] Cardiology 11/25/23 Oxana Pack, teletype or varitype keyboard operatorReproduction Technician 05/08/24 Kati Grant LSW EUCLID Data Lead 07/22/24 Acrobatic Rigger Relationship Specialty Start Date End Date Willam Estrada MD [address] [facility] [place] [address] PCP - General 01/15/06 Mona Corrigan MD [address] [place] [address] Pulmonary and Critical Care Medicine 11/11/23 Shaq Rush MD [address] [place] [address] Cardiology 11/25/23 Oxana Pack, teletype or varitype keyboard operatorReproduction Technician 05/08/24 Kati Grant LSW EUCLID Data Lead 07/22/24 Acrobatic Rigger Relationship Specialty Start Date End Date Willam Estrada MD [address] [facility] [place] [address] PCP - General 01/15/06 Mona Corrigan MD [address] [place] [address] Pulmonary and Critical Care Medicine 11/11/23 Shaq Rush MD [address] [facility] [place] [address] Cardiology 11/25/23 Oxana Pack RN Reproduction Technician 05/08/24 Kati Grant, BOLIVAR GARZA Data Lead 07/22/24 Acrobatic Rigger Relationship Specialty Start Date End Date Willam Estrada MD [address] [facility] [place] [address] PCP - General 01/15/06 Mona Corrigan MD [address] [place] [address] Pulmonary and Critical Care Medicine 11/11/23 Shaq Rush MD [address] [facility] [place] [address] Cardiology 11/25/23 Oxana Pack RN Reproduction Technician 05/08/24 Kati Grant LSW EUCLID Data Lead 07/22/24 Acrobatic Rigger Relationship Specialty Start Date End Date Willam Estrada MD [address] [facility] [address] PCP - General 01/15/06 Mona Corrigan MD [address] [place] [address] Pulmonary and Critical Care Medicine 11/11/23 Shaq Rush MD [address] [place] [address] Cardiology 11/25/23 Oxana Pack, teletype or varitype keyboard operatorReproduction Technician 05/08/24 Kati Grant LSW EUCLIKit Data Lead 07/22/24 Acrobatic Rigger Relationship Specialty Start Date End Date Willam Estrada MD [address] [facility] [place] [address] PCP - General 01/15/06 Mona Corrigan MD [address] [place] [address] Pulmonary and Critical Care Medicine 11/11/23 Shaq Rush MD [address] [place] [address] Cardiology 11/25/23 Oxana Pack RN Reproduction Technician 05/08/24 Kati Grant LSW EUCLID Data Lead 07/22/24 Acrobatic Rigger Relationship Specialty Start Date End Date Willam Estrada MD [address] [facility] [address] PCP - General 01/15/06 Mona Corrigan MD [address] [place] [address] Pulmonary and Critical Care Medicine 11/11/23 Shaq Rush MD [address] [address] Cardiology 11/25/23 Oxana Pack, teletype or varitype keyboard operatorReproduction Technician 05/08/24 Kati Grant, ADVERTISING MATERIAL DISTRIBUTOR EUCLID Data Lead 07/22/24 Alyssa Hathaway, RN [address] [place] [address] Primary Care Mixer Tender 08/07/24 Acrobatic Rigger Relationship Specialty Start Date End Date Willam Estrada MD [address] [place] [address] PCP - General 01/15/06 Mona Corrigan MD [address] [place] [address] Pulmonary and Critical Care Medicine 11/11/23 Shaq Rush MD [address] [address] Cardiology 11/25/23 Oxana Pack, teletype or varitype keyboard operatorReproduction Technician 05/08/24 Kati Grant LSW EUCLID Data Lead 07/22/24 Alyssa Hathaway, HOWARD [address] [place] [address] Primary Care Mixer Tender 08/07/24 Acrobatic Rigger Relationship Specialty Start Date End Date Willam Estrada MD [address] [place] [address] PCP - General 01/15/06 Mona Corrigan MD [address] [place] [address] Pulmonary and Critical Care Medicine 11/11/23 Shaq Rush MD [address] [address] Cardiology 11/25/23 Oxana Pack, teletype or varitype keyboard operatorReproduction Technician 05/08/24 Kati Grant, ADVERTISING MATERIAL DISTRIBUTOR EUCLID Data Lead 07/22/24 Alyssa Hathaway, RN [address] [place] [address] Primary Care Mixer Tender 08/07/24 Acrobatic Rigger Relationship Specialty Start Date End Date Willam Estrada MD [address] [place] [address] PCP - General 01/15/06 Mona Corrigan MD [address] [facility] [place] [address] Pulmonary and Critical Care Medicine 11/11/23 Shaq Rush MD [address] [address] Cardiology 11/25/23 Oxana Pack, teletype or varitype keyboard operatorReproduction Technician 05/08/24 Kati Grant, BOLIVAR EUCANDREE Data Lead 07/22/24 Alyssa Hathaway, HOWARD [address] [place], [place] [address] Primary Care Mixer Tender 08/07/24 Acrobatic Rigger Relationship Specialty Start Date End Date Willam Estrada MD [address] [place] [address] PCP - General 01/15/06 Mona Corrigan MD [address] [place] [address] Pulmonary and Critical Care Medicine 11/11/23 Shaq Rush MD [address] [address] Cardiology 11/25/23 Oxana Pack, teletype or varitype keyboard operatorReproduction Technician 05/08/24 Kati Grant, BOLIVAR EUCLID Data Lead 07/22/24 Alyssa Hathaway, HOWARD [address] [place], [place] [address] Primary Care Mixer Tender 08/07/24 Acrobatic Rigger Relationship Specialty Start Date End Date Willam Estrada MD [address] [place] [address] PCP - General 01/15/06 Mona Corrigan MD [address] [place] [address] Pulmonary and Critical Care Medicine 11/11/23 Shaq Rush MD [address] [facility] [address] [address] Cardiology 11/25/23 Oxana Pack, teletype or varitype keyboard operatorReproduction Technician 05/08/24 Kati Grant, BOLIVAR EUCANDREE Data Lead 07/22/24 Alyssa Hathaway, HOWARD [address] [place], [place] [address] Primary Care Mixer Tender 08/07/24 Acrobatic Rigger Relationship Specialty Start Date End Date Willam Estrada MD [address] [place] [address] PCP - General 01/15/06 Mona Corrigan MD [address] [place] [address] Pulmonary and Critical Care Medicine 11/11/23 Shaq Rush MD [address] [address] Cardiology 11/25/23 Oxana Pack, teletype or varitype keyboard operatorReproduction Technician 05/08/24 Kati Grant, BOLIVAR EUCANDREE Data Lead 07/22/24 Alyssa Hathaway, HOWARD [address] [place] [address] Primary Care Mixer Tender 08/07/24 Acrobatic Rigger Relationship Specialty Start Date End Date Willam Estrada MD [address] [place] [address] PCP - General 01/15/06 Mona Corrigan MD [address] [place] [address] Pulmonary and Critical Care Medicine 11/11/23 Shaq Rush MD [address] [address] Cardiology 11/25/23 Oxana Pack, teletype or varitype keyboard operatorReproduction Technician 05/08/24 Kati Grant, BOLIVAR EUCANDREE Data Lead 07/22/24 Alyssa Hathaway, HOWARD [address] [place] [address] Primary Care Mixer Tender 08/07/24 Leilani Ramirez APRN.CNS [address] [place] [address] [facility] 08/17/24 Allegra Berumen SUPPLY CHAIN PROGRAM MANAGER.HOG FEEDER [address] [place] [address] [facility] Internal Medicine 08/17/24 Acrobatic Rigger Relationship Specialty Start Date End Date Willam Estrada MD [address] [place] [address] PCP - General 01/15/06 Mona Corrigan MD [address] [place] [address] Pulmonary and Critical Care Medicine 11/11/23 [place] [address] [place] [address] Cardiology 11/25/23 Oxana Pack, teletype or varitype keyboard operatorReproduction Technician 05/08/24 Alyssa Hathaway, HOWARD [address] [place], [place] [address] Primary Care Mixer Tender 08/07/24 Leilani Ramirez APRN.SHEET METAL ENGINEER [address] [place] [address] [facility] Internal Medicine 08/17/24 Allegra Berumen SUPPLY CHAIN PROGRAM MANAGER.HOG FEEDER [address] [place] [address] [facility] Internal Medicine 08/17/24 Acrobatic Rigger Relationship Specialty Start Date End Date Willam Estrada MD [address] [place] [address] PCP - General 01/15/06 Mona Corrigan MD [address] [place] [address] Pulmonary and Critical Care Medicine 11/11/23 Shaq Rush MD [address] [place] [address] Cardiology 11/25/23 Leilani Ramirez, SUPPLY CHAIN PROGRAM MANAGER.SHEET METAL ENGINEER [address] [facility] [place] [address] [facility] 08/17/24 Allegra Berumen APRN.HOG FEEDER [address] [place] [address] [facility] Internal Medicine 08/17/24 Acrobatic Rigger Relationship Specialty Start Date End Date Willam Estrada MD [address] [facility] [address] PCP - General 01/15/06 Mona Corrigan MD [address] [place] [address] Pulmonary and Critical Care Medicine 11/11/23 Shaq Rush MD [address] [facility] [address] [place] [address] Cardiology 11/25/23 Leilani Ramirez, SUPPLY CHAIN PROGRAM MANAGER.SHEET METAL ENGINEER [address] [facility] [place] [address] [facility] Internal Medicine 08/17/24 Allegra Berumen APRN.HOG FEEDER [address] [place] [address] [facility] 08/17/24 Acrobatic Rigger Relationship Specialty Start Date End Date Willam Estrada MD [address] [facility] [address] PCP - General 01/15/06 Mona Corrigan MD [address] [place] [address] Pulmonary and Critical Care Medicine 11/11/23 Shaq Rush MD [address] [place] [address] Cardiology 11/25/23 Leilani Ramirez, SUPPLY CHAIN PROGRAM MANAGER.SHEET METAL ENGINEER [address] [facility] [place] [address] [facility] 08/17/24 Allegra Berumen SUPPLY CHAIN PROGRAM MANAGER.HOG FEEDER [address] [facility] [place] [address] [facility] 08/17/24 Acrobatic Rigger Relationship Specialty Start Date End Date Willam Estrada MD [address] [facility] [place] [address] PCP - General 01/15/06 Mona Corrigan MD [address] [facility] [place] [address] Pulmonary and Critical Care Medicine 11/11/23 Shaq Rush MD [address] [facility] [address] [place] [address] Cardiology 11/25/23 Leilani Ramirez, SUPPLY CHAIN PROGRAM MANAGER.SHEET METAL ENGINEER [address] [facility] [address] [facility] 08/17/24 Allegra Berumen APRN.HOG FEEDER [address] [facility] [place] [address] [facility] 08/17/24 Acrobatic Rigger Relationship Specialty Start Date End Date Willam Estrada MD [address] [facility] [address] PCP - General 01/15/06 Mona Corrigan MD [address] [place] [address] Pulmonary and Critical Care Medicine 11/11/23 Shaq Rush MD [address] [address] Cardiology 11/25/23 Leilani Ramirez APRN.SHEET METAL ENGINEER [address] [facility] [address] [facility] 08/17/24 Allegra Berumen APRN.HOG FEEDER [address] [facility] [address] [facility] 08/17/24 Acrobatic Rigger Relationship Specialty Start Date End Date Willam Estrada MD [address] [place] [address] PCP - General 01/15/06 Mona Corrigan MD [address] [place] [address] Pulmonary and Critical Care Medicine 11/11/23 Shaq Rush MD [address] [facility] [address] [place] [address] Cardiology 11/25/23 Leilani Ramirez, SUPPLY CHAIN PROGRAM MANAGER.SHEET METAL ENGINEER [address] [facility] [place] [address] [facility] 08/17/24 Allegra Berumen APRN.HOG FEEDER [address] [facility] [place] [address] [facility] 08/17/24 Acrobatic Rigger Relationship Specialty Start Date End Date Willam Estrada MD [address] [facility] [place] [address] PCP - General 01/15/06 Mona Corrigan MD [address] [facility] [place] [address] Pulmonary and Critical Care Medicine 11/11/23 Shaq Rush MD [address] [facility] [address] [place] [address] Cardiology 11/25/23 Leilani Ramirez, SUPPLY CHAIN PROGRAM MANAGER.SHEET METAL ENGINEER [address] [facility] [place] [address] [facility] 08/17/24 Allegra Berumen APRN.HOG FEEDER [address] [facility] [place] [address] [facility] 08/17/24 Acrobatic Rigger Relationship Specialty Start Date End Date Willam Estrada MD [address] [place] [address] PCP - General 01/15/06 Mona Corrigan MD [address] [place] [address] Pulmonary and Critical Care Medicine 11/11/23 Shaq Rush MD [address] [place] [address] Cardiology 11/25/23 Leilani Ramirez APRN.SHEET METAL ENGINEER [address] [place] [address] [facility] 08/17/24 Allegra Berumen APRN.HOG FEEDER [address] [place] [address] [facility] 08/17/24 Acrobatic Rigger Relationship Specialty Start Date End Date Willam Estrada MD [address] [place] [address] PCP - General 01/15/06 Mona Corrigan MD [address] [place] [address] Pulmonary and Critical Care Medicine 11/11/23 Shaq Rush MD [address] [place] [address] Cardiology 11/25/23 Leilani Ramirez APRN.SHEET METAL ENGINEER [address] [place] [address] [facility] 08/17/24 Allegra Berumen APRN.HOG FEEDER [address] [facility] [place] [address] [facility] 08/17/24 Acrobatic Rigger Relationship Specialty Start Date End Date Willam Estrada MD [address] [place] [address] PCP - General 01/15/06 Mona Corrigan MD [address] [facility] [address] Pulmonary and Critical Care Medicine 11/11/23 Shaq Rush MD [address] [address] Cardiology 11/25/23 Leilani Ramirez APRN.SHEET METAL ENGINEER [address] [facility] [place] [place] [address] [facility] 08/17/24 Acrobatic Rigger Relationship Specialty Start Date End Date Willam Estrada MD [address] [facility] [place] [place] [address] PCP - General 01/15/06 Mona Corrigan MD [address] [facility] [address] Pulmonary and Critical Care Medicine 11/11/23 Shaq Rush MD [address] [place] [address] Cardiology 11/25/23 Leilani Ramirez APRN.SHEET METAL ENGINEER [address] [facility] [address] [facility] 08/17/24 JamaicaAllegra, SUPPLY CHAIN PROGRAM MANAGER.HOG FEEDER [address] [facility] [place] [address] [facility] Internal Medicine 12/01/24 Team Status: Active [...] 2024 End: November 02, 2024 Dr. Blake Avielz MD Attending Provider Active Start: November 02, [...] November 16, 2024 End: November 16, 2024 Acrobatic Rigger Relationship Specialty Start Date End Date Willam Estrada MD [address] [place] [address] PCP - General 01/15/06 Mona Corrigan MD [address] [place] [address] Pulmonary and Critical Care Medicine 11/11/23 Shaq Rush MD [address] [place] [address] Cardiology 11/25/23 Leilani Ramirez, CHRIS.SHEET METAL ENGINEER [address] [facility] [address] [facility] 08/17/24 Allegra Berumen APRN.HOG FEEDER [address] [place], [place] [address] [facility] 12/01/24 Team Status: Inactive Member Role Status Dates Dr. Willam Estrada MD Primary Care Provider Active Start: December 18, 2024 End: December 18, 2024 KEVIN Beckham Attending Provider Active Star t: December 18, 2024 End: December 18, 2024 KEVIN Beckham Referring Provider Active Star t: December 18, 2024 End: December 18, 2024 Acrobatic Rigger Relationship Specialty Start Date End Date Willam Estrada MD [address] [facility] [address] PCP - General 01/15/06 Mona Corrigan MD [address] [facility] [place] [address] Pulmonary and Critical Care Medicine 11/11/23 Shaq Rush MD [address] [place] [address] Cardiology 11/25/23 Leilani Ramirez, CHRIS.SHEET METAL ENGINEER [address] [place] [address] [facility] 08/17/24 Allegra Berumen APRN.HOG FEEDER [address] [place], [place] [address] [facility] Internal Medicine 08/17/24 11/27/24 Allegra Berumen APRN.HOG FEEDER [address] [place], [place] [address] [facility] Internal Medicine 12/01/24 Team Status: Inactive [...] February 04, 2025 End: February 04, 2025 Acrobatic Rigger Relationship Specialty Start Date End Date Willam Estrada MD [address] [place], [place] [address] PCP - General 01/15/06 Mona Corrigan MD [address] [place], [place] [address] Pulmonary and Critical Care Medicine 11/11/23 Shaq Rush MD [address] [address] Cardiology 11/25/23 Allegra Berumen SUPPLY CHAIN PROGRAM MANAGER.HOG FEEDER [address] [place] [address] [facility] 12/01/24 Leilani Ramirez, SUPPLY CHAIN PROGRAM MANAGER.SHEET METAL ENGINEER [address] [place] [address] [facility] 01/27/25 Acrobatic Rigger Relationship Specialty Start Date End Date Willam Estrada MD [address] [place] [address] PCP - General 01/15/06 Mona Corrigan MD [address] [place] [address] Pulmonary and Critical Care Medicine 11/11/23 Shaq Rush MD [address] [address] Cardiology 11/25/23 Allegra Berumen APRN.HOG FEEDER [address] [place] [address] [facility] 12/01/24 Leilani Ramirez, SUPPLY CHAIN PROGRAM MANAGER.SHEET METAL ENGINEER [address] [facility] [address] [facility] Internal Medicine 01/27/25 Acrobatic Rigger Relationship Specialty Start Date End Date Willam Estrada MD [address] [place] [address] PCP - General 01/15/06 Mona Corrigan MD [address] [place] [address] Pulmonary and Critical Care Medicine 11/11/23 Shaq Rush MD [address] [place] [address] Cardiology 11/25/23 Allegra Berumen APRN.HOG FEEDER [address] [place] [address] [facility] 12/01/24 Leilani Ramirez APRN.SHEET METAL ENGINEER [address] [place] [address] [facility] 01/27/25 Acrobatic Rigger Relationship Specialty Start Date End Date Willam Estrada MD [address] [place] [address] PCP - General 01/15/06 Mona Corrigan MD [address] [place] [address] Pulmonary and Critical Care Medicine 11/11/23 Shaq Rush MD [address] [place] [address] Cardiology 11/25/23 Allegra Berumen APRN.HOG FEEDER [address] [place] [address] [facility] 12/01/24 Leilani Ramirez APRN.SHEET METAL ENGINEER [address] [place] [address] [facility] 01/27/25 Acrobatic Rigger Relationship Specialty Start Date End Date Willam Estrada MD [address] [place], [place] [address] PCP - General 01/15/06 Mona Corrigan MD [address] [place], [place] [address] Pulmonary and Critical Care Medicine 11/11/23 Shaq Rush MD [address] [id number] Cardiology 11/25/23 Allegra Berumen APRN.HOG FEEDER [address] [place], [place] [address] [facility] 12/01/24 Leilani Ramirez APRN.SHEET METAL ENGINEER [address] [place], [place] [address] [facility] Internal Medicine 01/27/25 Goals (unrecognized section [...] BE BASED ON THE PRIMARY CLINICAL RECORDS. [facility] [employer] [facility]. provides no warranty or guarantee of the accuracy or completeness of information in this document.
[2025-03-13 14:04] LABS: Anion Gap 14 (5-15); BUN 13 mg/dL (4-19); BUN/Creat Ratio 22.6 RATIO (10-20); Calcium,Total 9.1 mg/dL (7.6-11.0); Carbon Dioxide 21.8 mmol/L (21.0-32.0); Chloride 104 mmol/L (98-108); Estimated Creatinine Clearance 112.53 ml/min (50-250); Glucose 159 mg/dL (70-99); Potassium 4.1 mmol/L (3.3-5.1)
--- NOTE | 2025-03-13 14:07 | EDS_ITS ---
HPI History of Present Illness Chief Complaint: Shortness of Breath Informant: patient Onset/Context/Timing Onset: Days Context: gradual Timing: Continuous Quality: Positive for Wheezing Current Severity: Mild Maximum Severity: Mild Worsened by: Nothing Relieved by: Nothing Associated Symptoms cough Chest Pain: Positive for Sharp Narrative Narrative: 64-year-old female history diabetes COPD. Says since Saturday she has had sinus congestion and drainage is white and then yesterday developed shortness of breath and a productive cough of white sputum. Atypical chest discomfort she describes as pressure and at times sharp. She is question if she has an infection. She denies vomiting. She has intermittent chronic diarrhea. She denies any known fever. No hemoptysis. No history of DVT or PE. No leg pain or swelling. No recent immobilization. PE Risk Factors: Negative for Cancer, OCP + Smoking + > 35, Prior DVT or PE, Recent immobilization, Recent surgery or Recent travel Prior similar symptoms: No Recent Illness/Hospitalization: No PFSH PFSH Medical History Nonalcoholic fatty liver disease Gastroparesis Hemorrhoid Constipation CA19-9 above reference range Exocrine pancreatic insufficiency Elevated lipase Elevated C-reactive protein (CRP) Heartburn Morbid obesity Asthma Tobacco user Benign essential hypertension Family history of aneurysm Wears partial dentures Wears dentures Anxiety Diabetes Bladder disease Dietary restriction History of hiatal hernia Gastric reflux BiPAP (biphasic positive airway pressure) dependence Sleep apnea Smoker Hypertension Cardiology follow-up encounter History of stress test History of echocardiogram Elevated CPK Fatty liver Abdominal pain Diarrhea Hemorrhage of gastrointestinal tract Depression Arthritis Mixed hyperlipidemia Type 2 diabetes mellitus COPD (chronic obstructive pulmonary disease) YARY treated with BiPAP Postoperative anemia Osteoarthritis Anxiety and depression Home Medications ?Medication ?Instructions ?Recorded ?Last Taken ?Type gemfibrozil 600 mg tablet 600 mg PO BID Cholestrol 01/2011/26/23 History trazodone 100 mg tablet 100 mg PO QHS Mood 06/13/14 11/26/23 History alprazolam 0.5 mg tablet 0.5 mg PO QHS ANXIETY 11/27/23 History buspirone 5 mg tablet 7.5 mg PO BID Mood 07/11/18 03/20/24 History metformin 500 mg tablet,extended 500 mg PO BID Diabete s 07/11/18 11/26/23 History release 24 hr potassium chloride 10 mEq 10 meq PO DAILY Supplement 1 09/10/17 11/26/23 History tablet,extended release(part/cryst) sertraline 100 mg tablet (Zoloft) 200 mg PO QHS mental health 07/11/18 11/27/23 History ipratropium bromide 0.02 % 2.5 ml inhalation Q6H PRN 1 10/22/20 Unknown Rx solution for inhalation shortness of breath or wheez ing #75 mL albuterol sulfate 2.5 mg/3 mL 2.5 mg inhalation Q4H VT N 11/15/21 11/26/23 History (0.083 %) solution for nebulization shortness of breat h cetirizine 10 mg tablet 10 mg PO DAILY PRN ALLERGIES 11/15/21 Unknown History gabapentin 300 mg capsule 600 mg PO .COMPLEX neuropath y 11/15/21 11/26/23 History (Neurontin) ibuprofen 600 mg tablet 600 mg PO Q12H PRN pain 05/31 Unknown History glipizide 5 mg tablet 5 mg PO DAILY Diabetes 11/2511/26/23 History pantoprazole 20 mg tablet,delayed 20 mg PO BID GERD #6 0 TABLETS 02/10/24 Unknown Rx release carvedilol 25 mg tablet 25 mg PO BID #60 tabs Unknown Rx lisinopril 20 mg tablet 20 mg PO BID bp 10/16/24 Unk nown History albuterol sulfate 90 mcg/actuation 1 - 2 puff inhalati on Q4H PRN PRN 11/16/24 Unknown Rx aerosol inhaler (Ventolin HFA) Wheezing ##1 Allergy/AdvReac Type Severity Reaction Status Date / Time Cephalosporins Allergy Intermediate Rash Verified 03/13/25 13:13 hydromorphone (From Dilaudid) Allergy Intermediate Altered Verified 03/13/25 13:13 mental status pseudoephedrine Allergy Intermediate Tachycardia Verified 03/13/25 13:13 egg (eggs) Allergy Mild Diarrhea Verified 03/13/25 13:13 fluoxetine (From Prozac) Allergy Chest Verified 03/13/25 13:13 tightness house dust mite Allergy NEEDS Verified 03/13/25 13:13 FOLLOW-UP hydrocodone (From Vicodin) Allergy Upset Verified 03/13/25 13:13 Stomach Penicillins Allergy Hives Verified 03/13/25 13:13 prednisone AdvReac PT UNABLE Verified 03/13/25 13:13 TO RESPOND-NEEDS F/U Family History Mother Glaucoma Cervical cancer Asthma Father , at 77 Myocardial infarction Cancer Lung, metastatic to bone CAD (coronary artery disease) History of coronary artery bypass surgery Aortic aneurysm and dissection Sister Colon polyp Thyroid disorder Lung cancer Surgical History History of lumbar laminectomy History of bladder suspension procedure Hx of cholecystectomy History of total right knee replacement Hx of tonsillectomy H/O vaginal hysterectomy Tubal ligation status History of back surgery History of appendectomy S/P total knee arthroplasty Social History household members: none housing: apartment Smoking Status: Current every day smoker tobacco type: cigarettes alcohol intake: never substance use type: does not use caffeine: Yes Type: carbonated beverages Number of servings: 2 ROS ROS ED ROS Narrative Cough. Sinus drainage. Shortness of breath. Wheezing. Constitutional Constitutional ED: Denies chills or fever(s) Eyes Eyes: Denies blurry vision ENT ENT ED: Denies ear pain Cardiovascular Cardiovascular: Reports chest pain Respiratory/Chest Respiratory/Chest: Reports cough and dyspnea Gastrointestinal Gastrointestinal: Denies abdominal pain, melena, nausea or vomiting Genitourinary Genitourinary ED: Denies dysuria or hematuria Musculoskeletal Musculoskeletal: Denies arthralgias Integumentary Denies abscess Neurologic Neurologic: Denies headache(s) Psychiatric Psychiatric: Denies anxiety or depression Endocrine Endocrinology: Denies cold intolerance Hematologic/Lymphatic Hematologic/Lymphatic: Denies easy bleeding, easy bruising or lymphadenopathy Allergic/Immunologic Allergic/Immunologic ED: Denies mouth swelling, tongue swelling or urticaria EXAM Physical Exam Narrative Exam Narrative: Well-appearing 64-year-old female vital signs stable afebrile. Pulse ox 98% on room air no hypoxia. No distress. H EENT exam pupils round react to light. Moist mucous membranes. Sinuses nontender. Neck nontender lymphadenopathy. Lungs scattered expiratory wheezes. No rales or rhonchi. Equal symmetrical. Heart regular rhythm no murmur. Abdomen soft nontender. Moving all 4 extremities. Nontender. No cords no edema. Normal strength. Neurologically she is awake alert. Answer questions following commands. Const Vital Signs: 03/13/25 13:13 03/13/25 13:16 03/13/25 13:16 Temperature 98.4 F Temperature Source Oral Pulse Rate 77 Respiratory Rate 16 22 H Respiratory Effort Blood Pressure 145/84 H Blood Pressure Mean 104 Pulse Ox 98 98 Oxygen Delivery Method Room Air Room Air Room Air 03/13/25 13:25 03/13/25 13:46 03/13/25 14:33 Temperature 98.3 F Temperature Source Oral Pulse Rate 74 70 Respiratory Rate 15 16 Respiratory Effort Short of Breath Labored Blood Pressure 134/78 H Blood Pressure Mean 96 Pulse Ox 99 Oxygen Delivery Method Room Air Room Air 03/13/25 15:32 Temperature 98.6 F Temperature Source Oral Pulse Rate 74 Respiratory Rate 18 Respiratory Effort Blood Pressure 142/90 H Blood Pressure Mean 107 Pulse Ox 96 Oxygen Delivery Method Room Air Positive well nourished and well developed; Negative for cachectic, contractures or unkempt General Appearance ED: well developed and NAD; Negative for unkempt, cachectic, contractures or pallor Nutritional Appearance: Negative for cachectic HEENT Reports moist mucous membranes atraumatic Eyes EOMs intact bilaterally Neck no lymphadenopathy, supple, no meningeal signs and no JVD Resp normal respiratory effort and No clear to auscultation bilaterally Auscultation: wheezes Cardio regular rate, regular rhythm, S1 normal heart sound, S2 normal heart sound and no murmurs GI non-tender, non-distended and no masses Palpation: soft; Negative for tender or guarding Back/Spine no CVA tenderness and normal to inspection Extremity normal to inspection Neuro oriented x3 and CN's II-XII intact bilaterally Sensorium / Orientation: alert, oriented to person, oriented to place and oriented to time; Negative for orientation impaired, confused or lethargic Speech: speech normal Psych mental status grossly normal Appearance: Negative for unkempt Attitude: No agitated Mood & Affect: Negative for depressed Thought Process: normal thought process Skin no wounds and skin turgor normal General Skin Exam: Negative for jaundice or pallor Lesions: no lesions Rashes: no rashes MDM MDM MDM Narrative Medical decision making narrative: 64-year-old female wheezing suspect URI most likely viral. Exacerbation of COPD. I do not think this is cardiac. I think is unlikely she has pneumonia. Chest x-ray and labs will be obtained. It is atypical chest pain does not sound cardiac I will check 1 troponin. Repeat exam at 4:20 PM patient doing much better. Wheezing resolved after the aerosol treatments. She was offered but did not want to take the prednisone because she said it gives her other side effects that she does not like. Currently she is no longer wheezing. We discussed her test results and chest x- ray. I think is a viral URI with COPD exacerbation. She does not want to take steroids at home. She will use her nebulizer at home and her inhaler and follow-up with her doctor if not improving. History & Record Review Discussion w/independent historian: Patient Additional record(s) reviewed:: Prior inpatient record, Prior outpatient record, Prior ED visit and Prior labs Lab Data Attestation: I reviewed the patient's lab results. Lab results narrative: CBC shows a white count 7 H&H 13 and 38. Platelets 300. Electrolytes unremarkable gap 14. BUN and creatinine are 13 and 0.5. Glucose 159. Troponin is 18. Labs: Laboratory Results - last 24 hr 03/13/25 13:20 WBC 7.7 RBC 4.72 Hgb 13.4 Hct 38.8 MCV 82.2 MCH 28.4 MCHC 34.5 RDW Std Deviation 40.2 RDW Coeff of Rodrigo 13.4 Plt Count 300 MPV 9.9 Immature Gran % (Auto) 0.100 Neut % (Auto) 47.2 Lymph % (Auto) 43.2 H [place] % (Auto) 6.4 Eos % (Auto) 2.3 Baso % (Auto) 0.8 Absolute Neuts (auto) 3.6 Absolute Lymphs (auto) 3.33 Nucleated RBC % 0 Sodium 140 Potassium 4.1 Chloride 104 Carbon Dioxide 21.8 Anion Gap 14 BUN 13 Creatinine 0.56 L Estim Creat Clear Calc 112.53 Est GFR (MDRD) Non-Af 102 BUN/Creatinine Ratio 22.6 H Glucose 159 H Calcium 9.1 Troponin T High Sens 18 H Radiography Chest X-Ray - ED: 2 View, Read by ED Physician, Read by Radiologist, Normal, Heart, Lungs, Mediastinum, Bony Structures, No Acute Disease and Chronic Changes Diagnostic Testing: Clinical Impression(s) from Imaging Studies Chest X-Ray 03/13/25 15:15 IMPRESSION: No acute cardiopulmonary process. Reading Location: [facility] Chest x-ray, 2 views, AP and lateral, interpreted by myself and radiologist shows no acute abnormality. Normal cardiac silhouette. Normal lung hemphill. Rhythm Strip Rhythm Strip: Sinus Rhythm Rate: 69 Ectopy: None EKG Initial EKG: Attestation: I personally reviewed and interpreted this EKG as follows: Interpretation: Sinus Rhythm and No Acute Injury Pattern Comments: NSR rate of 69 no acute signs of MS or ischemia. Discharge Plan Triage Chief Complaint: Shortness of Breath ED Provider: Adan Barnard Dx/Rx/DC Orders Clinical Impression: SOB (shortness of breath), Viral URI, COPD exacerbation, History of diabetes mellitus Instructions: ED COPD Flare, ED URI, Viral, No Abx (Adult) Prescriptions: No Action albuterol sulfate 2.5 mg /3 mL (0.083 %) solution for nebulization 2.5 mg inhalation Q4H PRN (Reason: shortness of breath) ibuprofen 600 mg tablet 600 mg PO Q12H PRN (Reason: pain) cetirizine 10 mg tablet 10 mg PO DAILY PRN (Reason: ALLERGIES) lisinopril 20 mg tablet 20 mg PO BID albuterol sulfate [Ventolin HFA] 90 mcg/actuation HFA aerosol inhaler 1 - 2 puff inhalation Q4H PRN PRN (Reason: Wheezing) Qty: 1 0RF trazodone 100 MG tablet 100 mg PO QHS Patient Comments: Mood/anti-anxiety gemfibrozil 600 MG tablet 600 mg PO BID Patient Comments: Cholesterol alprazolam 0.5 MG tablet 0.5 mg PO QHS buspirone 5 MG tablet 7.5 mg PO BID Patient Comments: anti-anxiety sertraline [Zoloft] 100 MG tablet 200 mg PO QHS metformin 500 MG tablet 500 mg PO BID potassium chloride 10 MEQ tablet 10 meq PO DAILY gabapentin [Neurontin] 300 mg capsule 600 mg PO .COMPLEX Rx Instructions: 600 mg PO take 2 caps in the am and 2 caps in the evening; ipratropium bromide 0.02 % solution 2.5 ml inhalation Q6H PRN (Reason: shortness of breath or wheezing) Qty: 75 2RF glipizide 5 mg tablet 5 mg PO DAILY Patient Comments: 1 TAB DAILY, IF BG OVER 200 1.5 TABS pantoprazole 20 mg tablet,delayed release (DR/EC) 20 mg PO BID Qty: 60 5RF carvedilol 25 mg tablet 25 mg PO BID Qty: 60 11RF Rx Instructions: must administer with a meal/food Primary Care Provider: Susanna Monroe Referrals: Susanna Monroe MD [Primary Care Provider] - 3-5 Days if not improving Activity Restrictions/Additional Instructions: Use your inhaler or nebulizer. There are no signs of pneumonia you do not need an antibiotic Follow-up with your doctor if not improving if not improving you might want to strongly consider using prednisone the steroid. Print Language: Armenian Disposition Disposition: Home, Self Care
[2025-03-13] MEDS: Albuterol 2.5 MG/3 ML VIAL.NEB. INHALATION (14:32)
[2025-03-13 15:08] LABS: Troponin T High Sensitivity 18 ng/L (<=14)
--- NOTE | 2025-03-13 15:15 | RAD_ITS ---
EXAM: XR Chest, 2 Views CLINICAL INDICATION: COUGH AND DYSPNEA TECHNIQUE: Frontal and lateral views of the chest. COMPARISON: No relevant prior studies available. FINDINGS: LUNGS AND PLEURAL SPACES: Unremarkable. No consolidation. No pneumothorax. HEART: Unremarkable. No cardiomegaly. MEDIASTINUM: Unremarkable. Normal mediastinal contour. BONES/JOINTS: Unremarkable. No acute fracture. RAD/Chest PA and Lateral IMPRESSION: No acute cardiopulmonary process. Reading Location: [id number]
--- NOTE | 2025-03-13 15:15 | RAD_ITS ---
EXAM: XR Chest, 2 Views CLINICAL INDICATION: COUGH AND DYSPNEA TECHNIQUE: Frontal and lateral views of the chest. COMPARISON: No relevant prior studies available. FINDINGS: LUNGS AND PLEURAL SPACES: Unremarkable. No consolidation. No pneumothorax. HEART: Unremarkable. No cardiomegaly. MEDIASTINUM: Unremarkable. Normal mediastinal contour. BONES/JOINTS: Unremarkable. No acute fracture. RAD/Chest PA and Lateral IMPRESSION: No acute cardiopulmonary process. Reading Location: [id number]
== END 2025-03-13 16:00 | disposition home or self-care (01) ==
PROVIDERS: Emergency Provider Emergency Medicine; PCP Internal Medicine; Visit Provider Emergency Medicine
DX: J44.1 Chronic obstructive pulmonary disease with (acute) exacerbation (principal); E11.43 Type 2 diabetes mellitus with diabetic autonomic (poly)neuropathy; J06.9 Acute upper respiratory infection, unspecified; F17.210 Nicotine dependence, cigarettes, uncomplicated; G47.33 Obstructive sleep apnea (adult) (pediatric)
CPT/HCPCS: 71046; 80048; 84484; 85025; 93005; 94640; 94760; 99283; A4216

== ENCOUNTER 2025-04-21 06:03 | Day surgery (SDC) | payer MEDICARE, MEDICAID, SELFPAY ==
--- NOTE | 2025-04-16 14:57 | PAT.ANESEVAL ---
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 When Was Last Pacemaker Check QUESTION #4 FULL TEXT: You/Your Family Experience fever (hyperthermia) with Anesthesia Last Oral Intake Last Oral intake: Last Oral Intake NPO since Meds taken in AM with sips of water? 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 - field operations manager: PONV - field operations manager Female Yes 04/16/25 09:33 HX of Motion Sickness No 04/16/25 09:33 HX of N/V After Surgery No 04/16/25 09:33 Non-Smoker No 04/16/25 09:33 Duration of Surgery greater No 04/16/25 09:33 than 60 minutes Number of Risk Factors 1 04/16/25 09:33 PONV Score Low Risk 04/16/25 09:33 Height & Weight Height & Weight: Anesthesia: Height & Weight Height 5 ft 6 in 04/08/25 09:05 Respiratory Assessment Respiratory Assessment - field operations manager: Respiratory Tract Infection Hx - field operations manager Hx Respiratory Tract Infection No 04/16/25 09:33 STOP Sleep Apnea STOP Sleep Apnea - field operations manager: STOP Sleep Apnea - field operations manager Hx Hypertension Yes 04/16/25 09:33 Hx Sleep Apnea Yes 04/16/25 09:33 CPAP No 04/16/25 09:33 BIPAP Yes 04/16/25 09:33 Do you snore loudly (louder than talking or can be heard Do you often feel tired/ fatigued/ sleepy during daytime? Has anyone observed you stop breathing during sleep? STOP Results Positive 04/16/25 09:33 QUESTION #5 FULL TEXT : Do you snore loudly (louder than talking or can be heard through closed doors)? 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 Specify any problems Hx of Preganancy in last 3 No 04/16/25 09:33 Months Nurse Filling Out Transfusion VLEHMAN 04/16/25 09:33 & Questions: Date: 04/16/25 04/16/25 09:33 Time: 09:43 04/16/25 09:33 Patient unable to answer at this time (ie. confused, unrespo /Reproduction History /Reproductive History - field operations manager: /Reproductive Hx- field operations manager Hx Now No 04/16/25 09:33 Gestational Age (in weeks): EDC: Hx Hx Para Hx Section SAB No 04/16/25 09:33 [facility] Medical History Post-menopausal Fatty liver Family history of aneurysm Nonalcoholic fatty liver disease Gastroparesis Hemorrhoid Wears partial dentures Wears dentures Anxiety Diabetes Bladder disease Dietary restriction History of hiatal hernia Gastric reflux BiPAP (biphasic positive airway pressure) dependence Sleep apnea Smoker Hypertension Cardiology follow-up encounter History of stress test History of echocardiogram Constipation CA19-9 above reference range Exocrine pancreatic insufficiency Elevated lipase Elevated C-reactive protein (CRP) Heartburn Elevated CPK Fatty liver Abdominal pain Diarrhea Hemorrhage of gastrointestinal tract Depression Arthritis Mixed hyperlipidemia Type 2 diabetes mellitus COPD (chronic obstructive pulmonary disease) YARY treated with BiPAP Morbid obesity Postoperative anemia Asthma Osteoarthritis Anxiety and depression Tobacco user Benign essential hypertension Home Medications ?Medication ?Instructions ?Recorded ?Last Taken ?Type gemfibrozil 600 mg tablet 600 mg PO BID Cholestrol 06/13/14 11/26/23 History trazodone 100 mg tablet 100 mg PO QHS Mood 06/13/14 11/26/23 History alprazolam 0.5 mg tablet 0.5 mg PO QHS ANXIETY 07/30/15 11/27/23 History buspirone 5 mg tablet 7.5 mg PO BID Mood 07/11/18 03/20/24 History metformin 500 mg tablet,extended 500 mg PO BID Diabetes 07/11/18 11/26/23 History release 24 hr potassium chloride 10 mEq 10 meq PO DAILY Supplement 07/11/18 11/26/23 History tablet,extended release(part/cryst) sertraline 100 mg tablet (Zoloft) 200 mg PO QHS mental health 07/11/18 11/27/23 History ipratropium bromide 0.02 % 2.5 ml inhalation Q6H PRN 08/21/21 Unknown Rx solution for inhalation shortness of breath or wheezing #75 mL albuterol sulfate 2.5 mg/3 mL 2.5 mg inhalation Q4H PRN 11/15/21 11/26/23 History (0.083 %) solution for nebulization shortness of breath cetirizine 10 mg tablet 10 mg PO DAILY PRN ALLERGIES 11/15/21 Unknown History gabapentin 300 mg capsule 600 mg PO .COMPLEX neuropathy 11/15/21 11/26/23 History (Neurontin) ibuprofen 600 mg tablet 600 mg PO Q12H PRN pain 11/15/21 Unknown History glipizide 5 mg tablet 5 mg PO DAILY Diabetes 11/26/23 11/26/23 History pantoprazole 20 mg tablet,delayed 20 mg PO BID GERD #60 TABLETS 02/10/24 Unknown Rx release carvedilol 25 mg tablet 25 mg PO BID #60 tabs 10/02/24 Unknown Rx lisinopril 20 mg tablet 20 mg PO BID bp 10/16/24 Unknown History albuterol sulfate 90 mcg/actuation 1 - 2 puff inhalation Q4H PRN PRN 11/16/24 Unknown Rx aerosol inhaler (Ventolin HFA) Wheezing ##1 hydrocortisone 2.5 % topical cream 1 applic [place] BID-QID PRN 04/08/25 Unknown Rx with perineal applicator hemorrhoids #30 grams (Proctozone-HC) furosemide 20 mg tablet 20 mg PO DAILY 04/16/25 Unknown History Allergy/AdvReac Type Severity Reaction Status Date / Time Cephalosporins Allergy Intermediate Rash Verified 03/13/25 13:13 hydromorphone (From Dilaudid) Allergy Intermediate Altered Verified 03/13/25 13:13 mental status pseudoephedrine Allergy Intermediate Tachycardia Verified 03/13/25 13:13 egg (eggs) Allergy Mild Diarrhea Verified 03/13/25 13:13 fluoxetine (From Prozac) Allergy Chest Verified 03/13/25 13:13 tightness house dust mite Allergy NEEDS Verified 03/13/25 13:13 FOLLOW-UP hydrocodone (From Vicodin) Allergy Upset Verified 03/13/25 13:13 Stomach Penicillins Allergy Hives Verified 03/13/25 13:13 prednisone AdvReac PT UNABLE Verified 03/13/25 13:13 TO RESPOND-NEEDS F/U Family History Mother Glaucoma Cervical cancer Asthma Father , at 77 Myocardial infarction Cancer Lung, metastatic to bone CAD (coronary artery disease) History of coronary artery bypass surgery Aortic aneurysm and dissection Sister Colon polyp Thyroid disorder Lung cancer Surgical History History of lumbar laminectomy History of bladder suspension procedure Hx of cholecystectomy History of total right knee replacement Hx of tonsillectomy H/O vaginal hysterectomy Tubal ligation status History of back surgery History of appendectomy S/P total knee arthroplasty Social History (Updated 04/08/25 @ 09:05 by Senait Rivera) household members: none housing: apartment Smoking Status: Current every day smoker tobacco type: cigarettes quit status: considering quitting alcohol intake: never substance use type: does not use caffeine: Yes Type: carbonated beverages Number of servings: 2 Audit: Pertinent Findings Pertinent Findings EKG Perinent findings: March 13, 2025. Normal sinus rhythm. Stress test pertinent findings: 01/20/2024. EF of 74%. No ischemia. No infarct. Echo (EF%) pertinent findings: 03/23/2024. EF of 65%. No aortic stenosis. Consult pertinent findings: October 30, 2024. Dr. Cruz. 1. Hypertension?chronic-blood pressures at home reportedly equivalent to blood pressures in the office. Continue current medical regimen. Discontinue smoking. Recommendation Anesthesia Recommendation Anesthesia recommendation: OPTIMIZED for anesthesia
[2025-04-21] VITALS (10 sets, daily range): BP systolic 68–122; BP diastolic 49–60; PULSE 82–91; RESP 16; TEMP 36.2–36.4; O2SAT 95–99; BMI 30.2
--- OUTSIDE RECORDS SUMMARY | 2025-04-21 06:11 | XMS RPT_ITS | CCD ---
Author Organization [facility] Prov[facility] Care In Flight Crew Member Name Role Phone RADHA JETT Unavailable Unavailable RADHA JETT Unavailable Unavailable RADHA JETT Unavailable Unavailable RADHA JETT Unavailable Unavailable Willam Estrada MD Primary Care Provider Kimmy Mariscal RN Unavailable [phone] Willam Estrada Primary Care Provider Ya Talley Attending Provider Unavailable Dr. Willam Estrada Referring Provider Kori COUTURIERE, COUTURIERE-C Carrie Deng Attending Provider Dr. Tarik Villegas Attending Provider Leila Lawton RN Unavailable Unavailable Kimmy Mariscal RN Unavailable Willam Estrada MD Primary Care Provider Leila Lawton RN Unavailable Unavailable Jesús BARRAGAN, COUTURIEREJosefinaC Soha Attending Provider Dr. Willam Estrada Primary Care Provider Dr. Willam Estrada Referring Provider Rola Browne RN Unavailable [phone] Willam Estrada MD Primary Care Provider Rola Browne RN Unavailable Rola Browne RN Unavailable Dr. Willam Estrada Primary Care Provider Dr. Willam Estrada Referring Provider Kori COUTURIERE, COUTURIERE-C Carrie Deng Attending Provider Friend, Dr. Trevino Attending Provider Pavan RN, Rola Deng Unavailable Mabel, Dr. Willam Pantoja Primary Care Provider Mabel, Dr. Willam Pantoja Referring Provider Friend, Dr. Trevino Other Provider [phone] Willam Estrada Primary Care Provider Mabel, Dr. Willam Pantoja Referring Provider Friend, Dr. Trevino Attending Provider [phone] Friend, Dr. Trevino Other Provider [phone] Mona Corrigan MD Unavailable Shaq Rush MD Unavailable Mabel, Dr. Willam Pantoja Primary Care Provider Mabel, Dr. Willam Pantoja Referring Provider Friend, Dr. Trevino Attending Provider [phone] Friend, Dr. Trevino Other Provider [phone] Willam Estrada MD Primary Care Provider Rivas COLE, Alyssa Rushing Unavailable Oxana Pack RN Unavailable Unavailable Pavan COLE, Rola Deng Unavailable Rivas COLE, Alyssa Rushing Unavailable Leila Lawton RN Unavailable Unavailable Juanita LUTZ, Kati Unavailable Unavailabl seun Hathaway RN, Alyssa Rushing Unavailable James CHIEF PROGRAM OFFICER.JEWELRY MODEL MAKER, Leilani Unavailable [place] CHIEF PROGRAM OFFICER.UNDER CUTTING MACHINE OPERATOR, Allegra Unavailable [place] CHIEF PROGRAM OFFICER.UNDER CUTTING MACHINE OPERATOR, Allegra Unavailable [place] CHIEF PROGRAM OFFICER.UNDER CUTTING MACHINE OPERATOR, Allegra Unavailable Dr. Willam Estrada MD Primary Care Provider Rohan SUE, Dr. Robertson Emergency Provider David SUE, Dr. Vásquez Admit Provider David SUE, Dr. Vásquez Other Provider Gume SUE, Dr. Neal Ortiz Attending Provider David SUE, Dr. Vásquez Attending Provider Gume SUE, Dr. Neal Ortiz Other Provider Apoorva ALEXANDER, Dr. Mclaughlin Attending Provider Apoorva ALEXANDER, Dr. Mclaughlin Emergency Provider [facility]un[facility] hospitalsgisellaBhumi ALEXANDER, Dr. Gallego Attending Provider [facility] center[facility]i [facility], Dr. Gallego Emergency Provider Kemi Robledo Attending Provider [phone] Agustin BROWN, Kemi Referring Provider [phone] Alonso SUE, Dr. Robbins Attending Provider Yusra [...] Provider Wojciech SUE, Dr. Lu Attending Provider Dr. Willam Estrada MD Primary Care Provider [place] CHIEF PROGRAM OFFICER.UNDER CUTTING MACHINE OPERATOR, Allegra Unavailable Mabel SUE, Dr. Willam Pantoja Primary Care Provider [phone] Mabel SUE, Dr. Willam Pantoja Referring Provider Raghav SUE, Dr. Lozano Attending Provider Yusra Guadalupe Attending Provider Yusra Guadalupe Referring Provider Ennis CHIEF PROGRAM OFFICER.JEWELRY MODEL MAKER, Leilani Unavailable Mabel SUE, Dr. Willam Pantoja Primary Care Provider [phone] Mabel SUE, Dr. Willam Pantoja Referring Provider Raghav SUE, Dr. Lozano Attending Provider Akil SUE, Dr. Arellano Emergency Provider Ennis CHIEF PROGRAM OFFICER.JEWELRY MODEL MAKER, Leilani Unavailable TALAMPAS, WILLAM D Primary Care Unavailable SELF Referring Unavailable TALAMPAS, WILLAM D Attending Unavailable TALAMPAS, WILLAM D Primary Care Unavailable MONA CORRIGAN Attending Unavailable TALAMPAS, WILLAM D Primary Care Unavailable TALAMPAS, WILLAM D Attending Unavailable TALAMPAS, WILLAM D Primary Care Unavailable TALAMPAS, WILLAM D Attending Unavailable TALAMPAS, WILLAM D Primary Care Unavailable JUSTYNA MORA Referring Unavailable TALAMPAS, WILLAM D Primary Care Unavailable TALAMPAS, WILLAM D Referring Unavailable INDIGO NICHOLS Attending Unavailable TALAMPAS, WILLAM D Primary Care Unavailable DEANNA PAGAN Attending Unavailable TALAMPAS, WILLAM D Primary Care Unavailable TODD, ALEJANDRINA Referring Unavailable TALAMPAS, WILLAM D Primary Care Unavailable TALAMPAS, WILLAM D Attending Unavailable RUFUS OHARA Attending Unavailable TALAMPAS, WILLAM D Primary Care Unavailable TALAMPAS, WILLAM D Primary Care Unavailable INDIGO NICHOLS Referring Unavailable TALAMPAS, WILLAM D Primary Care Unavailable MARTHA DIOP Attending Unavailable TALAMPAS, WILLAM D Primary Care Unavailable TALAMPAS, WILLAM D Primary Care Unavailable LEILA RUBI Referring Unavailable JONNATHAN MCKEON Attending Unavailable TALAMPAS, WILLAM D Primary Care Unavailable TALAMPAS, WILLAM D Referring Unavailable TALAMPAS, WILLAM D Primary Care Unavailable MONA CORRIGAN Attending Unavailable TALAMPAS, WILLAM D Primary Care Unavailable JONNATHAN MCKEON Referring Unavailable RUFUS OHARA Attending Unavailable TALAMPAS, WILLAM [...] Unavailable TALAMPAS, WILLAM D Primary Care Unavailable JUSTYNA MORA Referring Unavailable LEILA RUBI Attending Unavailable TALAMPAS, WILLAM D Primary Care Unavailable MONA CORRIGAN Referring Unavailable Mabel SUE, Dr. Willam Pantoja Primary Care Provider Yusra Guadalupe Attending Provider Dr. Willam Estrada MD Referring Provider Dr. Adan Barnard MD Attending Provider [phone] Brian SUE, Dr. Duong Attending Provider Talampas, Willam D Primary Care Unavailable Adan Barnard Attending Unavailable Lissette Guerin Attending Unavailable Talampas, Willam D Primary Care Unavailable Aly Jeffrey Attending Unavailable Talampas, Willam D Primary Care Unavailable INDIGO NICHOLS Consulting Unavailable INDIGO NICHOLS Referring Unavailable Raghav, Blake Attending Unavailable Avilez Blake Referring Unavailable Talampas, Willam D Primary Care Unavailable Daniel Velezlette Attending Unavailable Daniel Velezlette Referring Unavailable Talampas, Willam D Primary Care Unavailable Yusra Cabello Attending Unavailable Yusra Cabello Referring Unavailable Talampas, Willam D Primary Care Unavailable Rhoda Torres Attending Unavailable Talampas, Willam D Referring Unavailable Talampas, Iwllam D Primary Care Unavailable Neal Dunaway Attending Unavailable Thalia Hernandez Admitting Unavailable Thalia Hernandez Consulting Unavailable Talampas, Willam D Primary Care Unavailable David, Thalia Consulting Unavailable Hernandez, Thalia Admitting Unavailable Talampas, Willam D Primary Care Unavailable Neal Dunaway Attending Unavailable Neal Dunaway Consulting Unavailable Rhoda Torres Attending Unavailable Talampas, Willam D Referring Unavailable Talampas, Willam D Primary Care Unavailable Talampas, Willam D Primary Care Unavailable Shaq Rush Attending Unavailable Victor ManuelShaq guo Attending Unavailable Talampas, Willam D Primary Care Unavailable Talampas, Willam D Referring Unavailable Ya Herrera Attending Unavail able Talampas, Willam D Primary Care Unavailable DestineyYusra Attending Unavailable Talampas, Willam D Referring Unavailable Talampas, Willam D Primary Care Unavailable Talampas, Willam D Primary Care Unavailable Corey Rubi Attending Unavailable Roof COUTURIERE, Rito Salcido Attending Unavailable Roof COUTURIERE, Rito Salcido Referring Unavailable Talampas, Willam D Primary Care Unavailable Yusra Cabello Attending Unavailable DestineyYusra Referring Unavailable Talampas, Willam D Primary Care Unavailable Thalia Hernandez Consulting Unavailable Thalia Hernandez Attending Unavailable David, Thalia Admitting Unavailable Talampas, Willam D Primary Care Unavailable Rosendo Gupta Attending Unavailable Kemi Velez Referring Unavailable Talampas, Willam D Primary Care Unavailable Rosendo Gupta Attending Unavailable Roof COUTURIERE, Rito H Referring Unavailable Talampas, Willam D Primary Care Unavailable Uriel Caceres Attending Unavailable Talampas, Willam D Primary Care Unavailable Blake Avilez Attending Unavailable Talampas, Willam D Referring Unavailable Talampas, Willam D Primary Care Unavailable Julián Schrader Attending Unavailabl e Talampas, Willam D Primary Care Unavailable Talampas, Willam D Referring Unavailable Talampas, Willam D Primary Care Unavailable León Cruz Attending Unavailable DestineyYusra Attending Unavailable Talampas, Willam D Referring Unavailable Talampas, Willam D Primary Care Unavailable DestineyYusra Attending Unavailable Talampas, Willam D Primary Care Unavailable Talampas, Willam D Referring Unavailable Blake Avilez Attending Unavailable Talampas, Willam D Primary Care Unavailable Talampas, Willam D Referring Unavailable INDIGO NICHOLS Attending Unavailable INDIGO NICHOLS Referring Unavailable Talampas, Willam D Primary Care Unavailable Allergies Allergy Classification Reported Allergen(s) Allergy Type Date of Onset Reaction(s) Facility Acetaminophen / HYDROcodone (1 source) Acetaminophen / HYDROcodone Drug Allergy 09-07-20 19 GI Upset [facility] Adrenergic Agonists (1 source) Pseudoephedrine Drug Allergy 09-21-19 16 Intolerance [facility] Cephalosporins (antibiotic) (2 sources) Cephalosporins (Antibiotic) Drug Allergy 05-28-20 23 Rash, Hives [facility] Corticosteroids (1 source) predniSONE Drug Allergy 08-07-20 22 Intolerance [facility] Opioid Agonists (1 source) HYDROmorphone Drug Allergy 11-17-19 11 Mental Status Change [facility] Work Phone: Penicillins (antibiotic) (1 source) Penicillins Drug Allergy 05-01-20 05 Hives, Other: See Comments [facility] Serotonin Reuptake Inhibitors (SSRIs) (2 sources) PARoxetine Drug Allergy 05-01-20 05 Intolerance, Mental Status Change, Diarrhea [facility] (20 sources) Acetaminophen / HYDROcodone; Translations: [HYDROCODONE-ACETA MINOPHEN] Drug Allergy 09-07-20 19 GI Upset [facility] (20 sources) FLUoxetine; Translations: [FLUOXETINE HCL] Drug Allergy 05-01-20 05 Mental Status Change, Diarrhea [facility] Work Phone: (20 sources) House dust mite; Translations: [DUST MITES] Propensity to adverse reactions 02-14-20 07 [facility] (20 sources) HYDROmorphone; Translations: [HYDROMORPHONE (BULK)] Drug Allergy 11-17-19 11 Mental Status Change [facility] Work Phone: (20 sources) PARoxetine; Translations: [PAROXETINE] Drug Allergy 02-18-20 19 Intolerance [facility] Work Phone: (20 sources) Penicillins; Translations: [PENICILLINS] Drug Allergy 05-01-20 05 Hives, Other: See Comments [facility] (20 sources) Pseudoephedrine; Translations: [PSEUDOEPHEDRINE] Drug Allergy 09-21-19 16 Intolerance [facility] Work Phone: (16 sources) Acetaminophen Drug Allergy 04-26-20 20 Upset [facility] (20 sources) FLUoxetine Drug Allergy 04-26-20 20 Chest tightness [facility] (20 sources) HYDROcodone Drug Allergy 04-26-20 Upset Stomach [facility] (20 sources) HYDROmorphone Drug Allergy 12-01-19 Altered mental status [facility] (20 sources) Penicillins Drug Allergy 05-01-20 05 Hives, Other: See Comments [facility] (20 sources) Penicillins Allergy to substance [facility] ([facility] sources) house dust mite; Translations: [house dust mite] Allergy to substance 03-30-20 NEEDS FOLLOW-UP [facility] (20 sources) predniSONE; Translations: [PREDNISONE] Drug Allergy 08-07-20 Intolerance [facility] Comment on above: Exacerbation of side effects (20 sources) Cephalosporins (Antibiotic); Translations: [CEPHALOSPORINS] Allergy to substance 05-26-20 Rash [facility] (20 sources) Cephalosporins (Antibiotic) Drug Allergy 05-28-20 [facility] (20 sources) cefdinir; Translations: [CEFDINIR] Drug Allergy 05-31-20 23 [facility] Work Phone: (20 sources) Doxycycline; Translations: [DOXYCYCLINE] Drug Allergy 04-20-20 24 GI Upset [facility] (18 sources) amLODIPine; Translations: [AMLODIPINE] Drug Allergy 11-26-19 Intolerance [facility] (5 sources) egg extract Drug Allergy 11-17-19 Diarrhea [facility] Comment on above: stomach aches (12 sources) Penicillins Drug Allergy 05-01-20 05 Hives, Other: See Comments [facility] (1 source) Cephalosporins (Antibiotic) Drug allergy (disorder) 03-13-20 [facility] (1 source) egg extract Drug Allergy 03-13-20 25 [facility] (1 source) FLUoxetine Drug Allergy 03-13-20 25 [facility] (1 source) HYDROcodone Drug Allergy 03-13-20 25 [facility] (1 source) HYDROmorphone Drug Allergy 03-13-20 25 [facility] (1 source) Penicillins Drug allergy (disorder) 03-13-20 25 [facility] (1 source) predniSONE Drug Allergy 03-13-20 [facility] (1 source) Pseudoephedrine Drug Allergy 03-13-20 [facility] Medications Current Medications Medication Drug Class(es) Dates Sig (Normalized) Sig (Original) [id number] 200 actuat albuterol 0.09 mg/actuat metered dose [...] HOURS NEEDED as needed for Wheezing 1 0 November 16, 2024 3:38pm Start: 04-03-2023 End: [...] HOURS NEEDED as needed for Wheezing 1 August 08, 2015 1:00am November 16, 2024 3:38pm Start: 08-08-2015 End: 11-16-2024 Albuterol Sulfate (Ventolin [...] mg oral tablet (20 sources) Benzodiazepine Start: 07-30-20 15 End: 04-09-20 25 take 1 tablet by mouth at bedtime Alprazolam 0.5 MG tablet Active 0.5 mg PO AT BEDTIME July 30, 2015 1:00am ANXIETY Start: 07-30-2015 End: 04-09-2023 take 1 tablet [...] (20 sources) Dihydropyridine Calcium Channel Telma Start: 03-12-202 5 take 1 tablet by mouth once daily [...] mg tablet Discontinued 5 mg PO daily 30 September 28, 2024 1:00am October 30, 2024 [...] complication, without long-term current use of insulin ([facility]) Insurance covered or per patient choice. Test blood sugar twice daily plus as needed for symptoms of blood sugars being too high or low. Dx: Type 2 DM - Uncontrolled .65 Insulin:No 1 Each 07/13/2019 Active Start: 07-13-2019 [...] oral solution (1 source) alpha-Adrenergic Agonist, Uncompetitive B-rgnaia-R-aspartate Receptor Antagonist, Sigma-1 Agonist Start: 11-27-19 End: 12-04-19 take 10 mL by mouth every six [...] TWICE A DAY July 11, 2018 7:36pm Mood Start: 07-11-2018 take 7.5 mg by mouth twice daily Buspirone Active 7.5 MG PO TWICE A DAY July 11, 2018 7:36pm Start: 08-01-2015 End: 07-11-2018 take 7.5 mg by mouth three times daily Buspirone 5 MG tablet Discontinued 7.5 mg PO THREE TIMES A DAY 150 0 August 01, 2015 1:00am July 11, 2018 [...] Take 0.5 tablets by mouth twice daily. cefdinir 300 mg oral capsule (13 sources) [...] on above: Take 1 capsule by mo [facility] twice daily for 10 days. cetirizine hydrochloride 10 mg oral tablet (20 sources) Histamine-1 Receptor Antagonist Start: 05-20-20 End: 12-22-19 take 1 tablet by mouth once daily as needed Cetirizine 10 mg tablet Active 10 mg PO DAILY as needed for ALLERGIES November 15, 2021 1:00am Comment on above: Take 1 tablet by [facility] once daily. cholecalciferol 0.01 mg oral capsule [...] on above: Take 1 capsule by mo [facility] once daily. COVID-19 antigen test (COVID-19 AT-HOME TEST) kit (20 sources) Start: COVID-19 antigen test (COVID-19 AT-HOME TEST) kit Indications: Acute viral syndrome Use as directed for signs and symptoms of COVID 4 Kit 2 05/19/2024 Active fluticasone / salmeterol (16 sources) Corticosteroid, beta2-Adrenergic Agonist Start: take 1 [...] in the evening; Start: 07-19-2020 End: 03-07-2024 take 2 capsules by mouth in the evening Gabapentin (Neurontin) 300 mg capsule Active 600 mg PO .COMPLEX November 15, 2021 4:01pm neuropathy 600 mg PO take 2 caps in the am and 2 caps in the evening; Start: 07-11-2018 End: 06-08-2025 take 2 capsules by mouth twice daily Gabapentin (Neurontin) 300 MG capsule Discontinued 600 mg PO TWICE A DAY July 11, 2018 12:00am November 15, 2021 4:05pm Comment on above: Take 2 capsules by [...] sources) Peroxisome Proliferator Receptor alpha Agonist Start: End: take 1 tablet by mouth twice daily Gemfibrozil 600 MG tablet Active 600 mg PO TWICE A DAY June 13, 2014 12:00am Cholestrol Comment on above: Take 1 tablet by jagjit twice daily. glipiZIDE 5 mg oral tablet (20 sources) Sulfonylurea Start: End: take 1 tablet by mouth once daily Glipizide 5 mg tablet Active 5 mg PO DAILY November 26, 2023 12:00am Diabetes Comment on above: Take 1 tablet by jagjit once daily. As directed Take 1 tablet by jagjit once daily. May take extra half to whole pill daily as needed for blood sugar over 200 Take 1 tablet (5 mg) by mouth once daily. May take extra half to whole pill daily as needed for blood sugar over 200 hydrocortisone 25 mg/ml topical cream (1 source) Corticosteroid Start: Hydrocortisone (Proctozone-Hc) 2.5 % cream with perineal applicator Active 1 NMA RC 2 to 4 times per day as needed for hemorrhoids 08 10April 08, 2025 12:00am ibuprofen 600 mg oral tablet (20 sources) Nonsteroidal Anti-inflammatory Drug Start: take 1 tablet by mouth twice daily [...] six hours as needed for wheezing Ipratropium [place] 0.02 % solution Active 2.5 mL INHALATION EVERY 6 HOURS as needed for shortness of breath or wheezing 75 2 August 21, 2021 1:00am Start: 07-22-2018 End: [...] mouth twice daily Lisinopril 20 mg tablet Active 20 mg PO TWICE A DAY October 16, 2024 3:06pm bp Start: 08-05-2024 End: 10-16-2024 take 1 tablet by mouth once daily Lisinopril 20 mg tablet Discontinued 20 mg PO DAILY 60 August 05, 2024 11:41am October 16, 2024 3:15pm bp Start: 07-23-2023 End: 09-11-2024 take 1 tablet by mouth twice daily Lisinopril 20 mg tablet Discontinued 20 mg PO TWICE A DAY 60 11 December 19, 2023 3:00pm August 05, 2024 11:41am bp Start: 07-22-2015 End: 12-19-2023 take 1 tablet by mouth once daily Lisinopril 20 MG tablet Discontinued 20 mg PO DAILY 30 0 August 02, 2015 8:42am December 19, 2023 [...] take 1 tablet by mouth twice daily Metformin 500 MG tablet Active 500 mg PO TWICE A DAY July 11, 2018 12:00am Diabetes Comment on above: Take 1 tablet by [...] every 4 hours as needed 1 Each 11 05/24/2023 Active Start: 05-24-2023 Nebulizer and Compressor [...] a dose pack (PAXLOVID) (1 source) Start: 4 End: nirmatrelvir tablet 300 mg (150 mg x 2) and ritonavir tablet 100 mg in a dose pack (PAXLOVID) Indications: COVID Administer TWO pink nirmatrelvir 150 mg tablets and ONE white ritonavir 100 mg tablet for a total of three tablets twice daily. 30 tablet 05/20/2024 05/25/2024 Active pantoprazole 20 mg delayed release oral tablet (20 sources) Proton Pump Inhibitor Start: 4 End: take 1 tablet by mouth twice daily Pantoprazole 20 mg tablet,delayed release (DR/EC) Active 20 mg PO TWICE A DAY 60 5 February 10, 2024 4:51pm GERD Start: 04-09-2023 End: 07-29-2024 take 1 tablet by mouth twice daily Pantoprazole (Protonix) 40 mg tablet,delayed release (DR/EC) Discontinued 40 mg PO TWICE A DAY 60 2 July 08, 2023 8:43am October 11, 2023 [...] meq PO DAILY July 11, 2018 12:00am Supplement Start: 06-13-2014 End: 08-01-2015 take 10 mEq [...] End: 4 take 2 tablets by mouth at bedtime Sertraline (Zoloft) 100 MG tablet Active 200 mg PO AT BEDTIME July 11, 2018 12:00am mental health Comment on above: Take 2 tablets by mo uth once daily. traZODone hydrochloride 100 mg oral tablet (20 sources) Serotonin Reuptake Inhibitor Start: 4 End: 4 take 1 tablet by mouth at bedtime Trazodone 100 MG tablet Active 100 mg PO AT BEDTIME June 13, 2014 12:00am Mood Comment on above: Take 1 tablet by jagjit th daily at bedtime. Completed/Discontinued Medications Medication Drug Class(es) Dates Sig (Normalized) Sig (Original) acetaminophen 325 mg / oxyCODONE hydrochloride 5 mg oral tablet (20 sources) Opioid Agonist Start: 04-25-2020 End: 04-28-2020 Oxycodone-Acetamino phen 1 TABLET tablet Discontinued 1 {tbl} PO EVERY 6 HOURS NEEDED as needed for Pain 12 3 0 April 25, 2020 April 27, 2020 12:00am April 28, 2020 12:02am Low back pain Start: 04-25-2020 End: 04-28-2020 take 1 tablet by mouth every six hours as needed Oxycodone-Acetaminophen Discontinued 1 TABLET PO EVERY 6 HOURS NEEDED 12 3 April 25, 2020 April 28, 2020 12:02am Start: 07-29-2019 End: 08-06-2019 Oxycodone-Acetaminophen 1 TA BLET tablet Discontinued 1 {tbl} PO EVERY 6 HOURS NEEDED as needed for Pain 12 3 0 July 29, 2019 July 31, 2019 1:00am August 06, 2019 1:08am Neuropathy Polyneuropathy, unspecified Start: 07-29-2019 End: 08-06-2019 take 1 tablet by mouth every six hours as needed Oxycodone-Acetaminophen Discontinued 1 TABLET PO EVERY 6 HOURS NEEDED 12 July 29, 2019 August 06, 2019 1:08am amylase [id number] unt / lipase [id number] unt / protease [id number] unt delayed release oral capsule (20 sources) Start: 07-26-2023 End: 10-11-2023 take [id number] capsules by mouth three times daily at mealtime Skybdz-Gqcprtyp-Itzledw (Creon) 24,000-76,000 -120,000 unit capsule,delayed release(DR/EC) Discontinued 1 NMA PO THREE TIMES A DAY 90 July 26, 2023 4:00pm October 11, 2023 1:12pm administer with meals and/or snacks Start: 03-21-2023 End: 08-12-2024 take 1 capsule by mouth at mealtime rllkwo-limzecig-ephxbhj (CREON 24) 24,000-76,000 -120,000 unit delayed release capsule Take 1 capsule by mouth with meals. With snacks and meals 03/21/2023 08/12/2024 Discontinued (Discontinued by Patient) Start: 03-21-2023 take [id number] cap sules by mouth three times daily at mealtime Wnlnap-Fyxxgdiu-Cuexntr (Creon) 24,000-76,000 -120,000 unit capsule,delayed release(DR/EC) Active 1 CAP PO THREE TIMES A DAY March 21, 2023 12:00am administer with meals and/or snacks Start: 01-04-2022 End: 02-16-2022 Vqtyze-Jqqrgdie-Ilgeyje (Cre on) 24,000-76,000 -120,000 unit capsule,delayed release(DR/EC) Discontinued 3 NMA PO THREE TIMES A DAY 80 January 04, 2022 12:00am February 16, 2022 2:51pm Take three with meals and one with snacks. Comment on above: Take 1 capsule by mo [facility] with meals. With snacks and meals aspirin 81 mg delayed release oral tablet (20 sources) Platelet Aggregation Inhibitor, Nonsteroidal Anti-inflammatory Drug Start: 2 End: 3 take 1 tablet by mouth once daily Aspirin 81 mg tablet,delayed release (DR/EC) Discontinued 81 mg PO DAILY 1 January 04, 2022 12:00am May 26, 2023 9:58pm Comment on above: Take 81 mg by mouth once daily. atenolol 50 mg oral tablet (20 sources) beta-Adrenergic Telma Start: End: atenolol (TENORMIN) 50 mg tablet Take 1/2 [...] sources) Anticholinergic, Cholinergic Muscarinic Antagonist, Antidiarrheal End: 12-22-19 take 1 tablet by mouth every six hours as needed diphenoxylate-atrop ine (LOMOTIL) 2.5-0.025 mg per tablet Take 1 tablet by mouth four times daily as needed. 12/21/2022 Discontinued (Course of therapy completed) Comment on above: Take 1 tablet by jagjit th four times daily as needed. azithromycin 250 mg oral tablet (1 source) Macrolide Antimicrobial Start: 04-20-20 End: 04-25-20 24 take 2 tablets by mouth once daily, then take 1 tablet by mouth once daily azithromycin (ZITHROMAX) 250 mg tablet Take 2 tablets by mouth once daily for 1 day, THEN 1 tablet once daily for 4 days. 6 tablet 04/20/2024 04/25/2024 benzonatate 100 mg oral capsule (1 source) Non-narcotic Antitussive Start: 12-25-19 End: 11-26-19 take 2 capsules by mouth three times daily as needed benzonatate (TESSALON PERLE) 100 mg capsule Indications: Mild persistent asthma with acute exacerbation Take 2 capsules by mouth three times daily as needed. 42 capsule 12/25/2019 11/25/2020 Discontinued betamethasone 0.5 mg/ml / clotrimazole 10 mg/ml topical cream (2 sources) Azole Antifungal, Corticosteroid Start: 05-13-20 End: 03-31-20 clotrimazole-betame thasone (LOTRISONE) cream Apply 1 application to affected area once daily. TO AFFECTED AREA. 45 g 2 05/13/2019 03/31/2021 Discontinued carvedilol 12.5 mg oral tablet (20 sources) alpha-Adrenergic Telma, beta-Adrenergic Telma Start: 10-02-19 End: 10-02-19 take 2 tablets by mouth twice daily at mealtime Carvedilol 12.5 mg tablet Discontinued 25 mg PO TWICE A DAY 60 October 02, 2024 3:26pm October 02, 2024 3:39pm must administer with a meal/food Start: 10-02-2024 take 1 tablet by jagjit th twice daily at mealtime Carvedilol 25 mg tablet Active 25 mg PO TWICE A DAY 60 October 02, 2024 1:00am must administer with a meal/food Start: 09-21-2024 End: 10-02-2024 take 1 tablet [...] 20, 2024 12:00am September 21, 2024 5:55pm Heart must administer with a meal/food cefuroxime 500 mg oral tablet (5 sources) Cephalosporin Antibacterial Start: 08-09-2024 End: 09-08-2024 take 1 tablet by mouth twice daily Cefuroxime Axetil 500 mg tablet Discontinued 500 mg PO TWICE A DAY 13 August 09, 2024 1:00am September 08, 2024 4:40pm cephalexin 500 mg oral capsule (3 sources) Cephalosporin Antibacterial Start: 06-25-2022 End: 07-02-2022 take 1 capsule by mouth twice daily cephALEXin (KEFLEX) 500 mg capsule Take 1 capsule by mouth twice daily for 7 days. 14 capsule 0 06/25/2022 06/27/2022 Discontinued Comment on above: Take 1 capsule by mo [facility] twice daily for 7 days. ciprofloxacin 500 mg oral tablet (12 sources) Quinolone Antimicrobial Start: 05-09-2024 End: 08-02-2024 take 1 tablet by mouth twice daily Ciprofloxacin Hcl 500 mg tablet Discontinued 500 mg PO TWICE A DAY 10 May 09, 2024 12:00am August 02, 2024 [...] Comment on above: Take 1 tablet by [facility] twice daily for 5 days. cyclobenzaprine hydrochloride [...] pain). dicyclomine hydrochloride 10 mg oral capsule (11 sources) Anticholinergic Start: 06-25-2023 End: 07-25-2023 take 1 capsule by mouth three times daily Dicyclomine 10 mg capsule Discontinued 10 mg PO THREE TIMES A DAY 90 30 0 June 25, 2023 12:00am July 24, 2023 1:00am July 25, 2023 1:05am doxycycline hyclate 100 mg oral capsule (18 sources) Tetracycline-class Drug Start: 08-09-2024 End: 09-08-2024 take 1 capsule by mouth twice daily Doxycycline Hyclate 100 mg capsule Discontinued 100 mg PO TWICE A DAY 13 0 August 09, 2024 1:00am September 08, 2024 [...] 1 tablet by jagjit th twice daily for 10 days. famotidine 40 mg oral tablet (20 sources) Histamine-2 Receptor Antagonist Start: End: 3 take 1 tablet by mouth [...] 1 tablet by jagjit th twice daily. fluticasone propionate 0.05 mg/actuat metered dose nasal spray (20 sources) Corticosteroid Start: 2 End: 4 take 50 ug nasal route once daily [...] rhinitis, unspecified seasonality, unspecified trigger Use 1 [place] in each nostril once daily. 1 Bottle 5 12/25/2019 03/31/2021 Discontinued Comment on above: Use 2 Sprays in each nostril once daily. Rinse mouth after use. 30 actuat fluticasone furoate 0.2 mg/actuat / vilanterol 0.025 mg/actuat dry powder inhaler (20 sources) Corticosteroid, beta2-Adrenergic Agonist Start: End: take 1 dose by inhalation once daily fluticasone-vilanterol (BREO ELLIPTA) 200-25 mcg/dose inhaler Indications: Stage 2 moderate COPD by GOLD classification ([facility]) Inhale 1 Inhalation as instructed once [...] 29, 2019 1:00am September 08, 2024 4:40pm Breathing Comment on above: Inhale 1 Inhalation as instructed once daily. glimepiride 4 mg oral tablet (19 sources) Sulfonylurea Start: 01-04-2023 End: 11-26-2023 Glimepiride 4 mg tablet Discontinued 4 mg PO DAILY as needed for glucose >200 January 04, 2023 12:00am November 26, 2023 12:39pm Start: 01-04-2023 End: 11-26-2023 take 4 mg by mouth once daily Glimepiride Discontinued 4 MG PO DAILY January 04, 2023 12:00am November 26, 2023 12:39pm 12 hr guaiFENesin 600 mg extended release oral tablet (5 sources) Start: 03-24-2024 End: 08-02-2024 take 1 tablet by mouth twice daily, then take 1 tablet by mouth every twelve hours Guaifenesin (Mucinex) 600 mg tablet extended release 12hr Discontinued 600 mg PO TWICE A DAY 10 March 24, 2024 12:00am August 02, 2024 1:28pm hydroCHLOROthiazide 25 mg oral tablet (20 sources) Thiazide Diuretic Start: 04-15-2024 End: 08-12-2024 take 1 tablet by mouth once daily Hydrochlorothiazide 25 mg tablet Discontinued 25 mg PO DAILY 90 April 15, 2024 8:45am August 05, 2024 11:38am Blood pressuree Start: 02-10-2024 End: 07-29-2024 hydroCHLOROthiazide 50 mg ta blet Take 25 mg by mouth once daily. 02/10/2024 07/29/2024 Discontinued Start: 01-20-2024 End: 04-15-2024 take 1 tablet by mouth once daily Hydrochlorothiazide 50 mg tablet Discontinued 50 mg PO DAILY 30 January 20, 2024 12:00am April 15, 2024 9:06am Blood pressuree hydrOXYzine pamoate 25 mg oral capsule (12 sources) Antihistamine Start: 05-30-2023 End: 11-26-2023 take [...] mg tablet Discontinued 750 mg PO DAILY 4 August 06, 2024 1:00am September 08, 2024 4:41pm Start: 03-24-2024 End: 08-02-2024 take 1 tablet by mouth once daily Levofloxacin 750 mg Tablet Discontinued 750 mg PO DAILY 3 March 24, 2024 12:00am August 02, 2024 7:28am Start: 03-21-2023 End: 05-26-2023 take 1 tablet by mouth every twelve hours Levofloxacin 250 mg tablet Discontinued 250 mg PO Q12H 14 0 March 21, 2023 12:00am May 26, 2023 10:03pm linaclotide 0.29 mg oral capsule (5 sources) Guanylate Cyclase-C Agonist Start: 09-08-2024 End: [...] dose loperamide hydrochloride 2 mg oral tablet (11 sources) Opioid Agonist Start: 2022 End: 2022 take 1 tablet by mouth every six hours as needed Loperamide (Anti-Diarrheal (Loperamide)) 2 mg tablet Discontinued 2 mg PO EVERY 6 HOURS as needed for loose stool 120 30 0 June 25, 2023 12:00am July 24, 2023 [...] / nitrofurantoin, monohydrate 75 mg oral capsule (14 sources) Nitrofuran Antibacterial Start: End: take 1 [...] 7 days. Take 1 capsule by mo ut twice daily for 5 days. nystatin 277204 unt/ml oral suspension (20 sources) Polyene Antifungal [...] on above: Take 1 capsule by mo [facility] daily before breakfast. 1/2 hr before meal. phenazopyridine hydrochloride 200 mg oral tablet (20 sources) Start: 08-06-20 End: 09-08-20 take 1 tablet by mouth three times daily as needed for pain Phenazopyridine (Pyridium) 200 mg tablet Discontinued 200 mg PO THREE TIMES A DAY as needed for bladder pain 10 August 06, 2024 1:11am September 08, 2024 4:41pm Start: 03-20-2024 End: 07-29-2024 take 1 tablet by mouth three times daily as needed for pain Phenazopyridine (Pyridium) 200 mg tablet Discontinued 200 mg PO THREE TIMES A DAY as needed for pain 10 May 09, 2024 12:50am July 10, 2024 2:00pm polyethylene glycol 3350 92522 mg powder for oral solution (5 sources) Osmotic Laxative Start: 03-24-2024 End: 09-08-2024 Polyethylene Glycol 3350 (Miralax) 17 gram/dose powder Discontinued 17 g PO DAILY 119 March 24, 2024 12:00am September 08, 2024 4:41pm constipation polyethylene glycol 3350 [id number] mg / potassium chloride 2970 mg / sodium bicarbonate 6740 mg / sodium chloride 5860 mg / sodium sulfate 55149 mg powder for oral solution (20 sources) [...] daily Prednisone Active 40 MG PO DAILY 10 5 Irena 21st, 2023 12:00am Start: 12-05-2022 End: 12-17-2022 predniSONE [...] with food. simethicone 80 mg chewable tablet (5 sources) Start: End: take 1 tablet by mouth at bedtime as needed Simethicone 80 mg Tablet,Chewable Discontinued 80 mg PO BEFORE MEALS AND AT BEDTIME as needed for Gas 0 0 March 24, 2024 12:00am September 08, 2024 4:41pm sucralfate 1000 mg oral tablet (20 sources) Aluminum Complex Start: End: take 1 tablet by mouth twice daily Sucralfate 1 gram tablet Discontinued 1 g PO TWICE A DAY 60 0 August 26, 2023 1:00am October 11, 2023 1:13pm Start: 04-11-2023 End: 07-23-2023 take 1 tablet by mouth three times daily before mealtime sucralfate (CARAFATE) 1 gram tablet Take 1 tablet by mouth three times daily before meals. 04/11/2023 07/23/2023 Discontinued Start: 04-09-2023 End: 04-09-2023 take 1 tablet by mouth before mealtime Sucralfate 1 gram tablet Discontinued 1 g PO before meals 90 1 April 09, 2023 12:00am April 09, 2023 3:30pm Start: 04-09-2023 End: 04-09-2023 take 1 g by mouth before mealtime Sucralfate Discontinued 1 GM PO before meals 90 April 09, 2023 12:00am April 09, 2023 [...] inhaler (2 sources) Anticholinergic, beta2-Adrenergic Agonist Start: 023 End: 023 take 1 puff(s) by inhalation once daily [...] 400 mg/ml topical cream (2 sources) Start: 020 End: urea (CARMOL) 40 % Apply to [...] 26, 2023 3:25pm July 10, 2024 2:00pm [place] Comment on above: Take 1 capsule by mo [facility] twice daily. Take 300 mg by mouth twice daily. vitamin e 180 mg oral capsule (20 sources) Start: 03-26-2023 End: 07-10-2024 Vitamin E Mixed 400 unit capsule Discontinued 800 U PO DAILY 60 March 26, 2023 3:26pm July 10, 2024 2:00pm Supplement Start: 03-26-2023 take 800 [IU[facility] Vitamin E Mixed Active 800 [...] (Discontinued by Patient) take 1 capsule by [facility] once daily Vitamin E, dl, acetate, (VITAMIN E) 400 unit capsule Take 400 Units by mouth once daily. 0 Active take 1 capsule by mo [facility] once daily Vitamin E, dl, acetate, (VITAMIN E) 400 unit capsule Take 400 Units by mouth once daily. 0 Active Comment on above: Take 400 Units by mo [facility] once daily. Take 800 Units by mo [facility] once daily. Problems Active Problems Problem Classification Problem Date Documented Da te Episodic/Chronic Abdominal hernia (1 source) Hiatal hernia; Translations: [Diaphragmatic hernia without obstruction or gangrene] Episodic Abdominal pain (20 sources) Abdominal pain; Translations: [Unspecified abdominal pain] Onset: 6 Resolved: 1 Episodic Allergic reactions (20 sources) Allergic reaction; Translations: [Allergy, unspecified, initial encounter] Onset: 5 05-27-2023 Episodic Anxiety disorders (20 sources) Anxiety; Translations: [Anxiety disorder, unspecified] Onset: 5 08-07-2019 Chronic Aortic; peripheral; and visceral artery aneurysms (3 sources) Distention of artery; Translations: [Other specified disorders of arteries and arterioles] 11-25-2024 Chronic Asthma (20 sources) Asthma; Translations: [Unspecified asthma, uncomplicated] Onset: 7 08-23-2015 Chronic Chronic obstructive pulmonary disease and bronchiectasis (20 sources) Acute exacerbation of chronic obstructive airways disease; Translations: [Chronic obstructive pulmonary disease with (acute) exacerbation] Onset: 4 Chronic Chronic obstructive pulmonary disease and bronchiectasis (20 sources) Bronchitis; Translations: [Bronchitis, not specified as acute or chronic] Onset: 4 08-20-2015 Episodic Conditions associated with dizziness or vertigo (2 sources) Dizziness; Translations: [Dizziness and giddiness] Onset: 5 03-13-2025 Episodic Deficiency and other anemia (20 sources) Anemia; Translations: [Anemia, unspecified] 11-15-2021 Episodic Diabetes mellitus with complications (20 sources) Type 2 diabetes mellitus; Translations: [Type 2 diabetes mellitus with diabetic neuropathy, unspecified] Onset: 7 Resolved: 0 05-18-2020 Chronic Diabetes mellitus without complication (2 sources) Type 2 diabetes mellitus without complications; Translations: [Diabetes mellitus without mention of complication, type II or unspecified type, not stated as uncontrolled] Chronic Diabetes mellitus without complication (20 sources) Acute hyperglycemia; Translations: [Hyperglycemia, unspecified] Onset: 6 Resolved: 7 07-10-2022 Episodic Disorders of lipid metabolism (20 sources) Pure [...] source) Nocturnal enuresis; Translations: [Nocturnal enuresis] Chronic Headache; including migraine (20 sources) Throbbing headache; [...] sitz bath's, and her choice of another [id number] agent to see what implementation of these measures may do for her symptoms. I stressed to her that I would strongly recommend this course over proceeding straightaway with excisional hemorrhoidectomy especially in light of her issues already with stool leakage and pelvic floor dysfunction. Mrs. De Santiago expressed understanding willingness to proceed as recommended. Immunizations and screening for infectious disease (1 [...] Onset: 4 11-15-2021 Chronic Other acquired deformities (5 sources) Lumbar spondylolisthesis; Translations: [Spondylolisthesis, lumbar region] 07-10-2024 Episodic Other acquired deformities (4 sources) Degenerative spondylolisthesis; Translations: [Spondylolisthesis, site unspecified] 11-16-2024 Episodic Other aftercare (9 sources) Patient encounter status; Translations: [Other skilled nursing (current) drug therapy] Episodic Other aftercare (1 source) Long-term current use of drug therapy; Translations: [Other skilled nursing (current) drug therapy] 04-20-2024 Episodic Other and [...] and respiratory systems] Episodic Other circulatory disease (5 sources) Low blood pressure; Translations: [Hypotension, unspecified] [...] Episodic Other disorders of stomach and duodenum (8 sources) Gastroparesis syndrome; Translations: [Gastroparesis] 08-26-2023 Episodic Other disorders of stomach and duodenum (3 sources) Gastroparesis; Translations: [Gastroparesis] 08-26-2023 Episodic Other gastrointestinal disorders (20 sources) Diarrhea; Translations: [Diarrhea, unspecified] Onset: 2 Resolved: 5 12-14-2021 Episodic Other gastrointestinal disorders (20 sources) Diarrhea, unspecified; Translations: [Diarrhea] Episodic Other gastrointestinal disorders (20 sources) Abdominal bloating; Translations: [Abdominal distension (gaseous)] Episodic Other gastrointestinal disorders (1 source) Abdominal mass; Translations: [Intra-abdominal and pelvic swelling, mass and lump, unspecified site] Episodic Other gastrointestinal disorders (1 source) Abdominal distension, gaseous; Translations: [Abdominal distension (gaseous)] Episodic Other gastrointestinal disorders (19 sources) Heartburn; Translations: [Heartburn] 01-04-2023 Episodic Other gastrointestinal disorders (17 sources) Abdominal distension (gaseous); Translations: [Flatulence, eructation, and gas pain] 01-04-2023 Episodic Other gastrointestinal disorders (17 sources) Heartburn; Translations: [Heartburn] 01-04-2023 Episodic Other gastrointestinal disorders (16 sources) Constipation; Translations: [Constipation, unspecified] 03-21-2023 Episodic [...] elsewhere classified] 12-27-2021 Chronic Other liver diseases (13 sources) Fatty (change of) liver, not elsewhere classified; Translations: [Other chronic nonalcoholic liver disease] Chronic Other liver diseases (20 sources) Increased creatine kinase level; Translations: [Abnormal levels of other serum enzymes] Onset: 6 01-25-2016 Episodic Other liver diseases (2 sources) Abnormal levels of other serum enzymes; Translations: [Other nonspecific abnormal serum enzyme levels] Episodic Other liver diseases (17 sources) High lipase level in serum; Translations: [...] of coronary disease. Other lower respiratory disease (5 sources) Shortness of breath; Translations: [Shortness of breath] Onset: 5 Episodic Other lower respiratory disease (6 sources) Cough; Translations: [Acute cough] Episodic Other lower respiratory disease (3 sources) Multiple nodules of lung; Translations: [Other nonspecific abnormal finding of lung field] 05-07-2024 Episodic Other lower respiratory disease (2 sources) Cough; Translations: [Acute cough] 11-21-2022 Episodic Other lower respiratory disease (5 sources) Hypoxia; Translations: [Hypoxemia] 03-28-2024 Episodic Other lower respiratory disease (1 source) Acute respiratory distress; Translations: [Acute respiratory distress] 03-13-2025 Episodic Other lower respiratory disease (1 source) Acute respiratory distress; Translations: [Acute respiratory distress] Onset: Episodic Other nervous system disorders (12 sources) Neuropathy; Translations: [Polyneuropathy, unspecified] Chronic Other nervous system disorders (1 source) Carpal tunnel syndrome of right wrist; Translations: [Carpal tunnel syndrome, right upper limb] 11-24-2024 Chronic Other nervous system disorders (12 sources) Cervical myelopathy; Translations: [Disease of spinal cord, unspecified] 09-08-2024 Chronic Other nervous system disorders (2 sources) Polyneuropathy, unspecified; Translations: [Neuropathy] Onset: 5 Chronic Other nervous system disorders [...] region] 07-23-2023 Episodic Other non-traumatic joint disorders (20 sources) Pain in lower limb; Translations: [Pain in unspecified knee] Onset: 5 Resolved: 0 05-18-2020 Episodic Other non-traumatic joint disorders (2 sources) [...] nutritional; endocrine; and metabolic disorders (2 sources) H/O: diabetes mellitus; Translations: [Personal history of other endocrine, nutritional and metabolic disease] 03-13-2025 Episodic Other screening for suspected conditions (not mental disorders or infectious disease) (20 sources) Elevated C-reactive protein; Translations: [Elevated C-reactive protein (CRP)] Onset: 5 01-28-2023 Episodic Other upper respiratory disease (20 sources) Rhinitis; Translations: [Chronic rhinitis] Onset: 4 10-30-2013 Chronic Other upper respiratory disease (2 sources) Seasonal allergy; Translations: [Other seasonal allergic rhinitis] Chronic Other upper respiratory disease (1 source) Allergic rhinitis; Translations: [Allergic rhinitis, unspecified] Chronic Other upper respiratory disease (1 source) Other allergic rhinitis; Translations: [Non-seasonal allergic rhinitis, unspecified trigger] Onset: 4 Chronic Other upper respiratory infections (4 sources) Chronic sinusitis; Translations: [Chronic sinusitis, unspecified] Onset: 4 Chronic Other upper respiratory infections (20 sources) Acute upper respiratory infection; Translations: [Acute upper respiratory infection, unspecified] Onset: 4 Resolved: 5 Episodic Pancreatic disorders (not diabetes) (17 sources) Exocrine pancreatic insufficiency; Translations: [Exocrine pancreatic insufficiency] 01-28-2023 Episodic Paralysis (20 sources) Cauda equina syndrome; Translations: [Cauda equina syndrome] Onset: 0 Resolved: 0 04-27-2020 Chronic Pneumonia (except that caused by tuberculosis or sexually transmitted disease) (8 sources) Pneumonia; Translations: [Pneumonia, unspecified organism] Onset: 4 08-11-2024 Episodic Pulmonary heart disease (5 sources) Pulmonary embolism; Translations: [Other pulmonary embolism [...] [Localized edema] 11-18-2024 Episodic Residual codes; unclassified (5 sources) Family history of aneurysm of artery; Translations: [Family history of ischemic heart disease and other diseases of the circulatory system] 03-28-2024 Episodic Residual codes; unclassified (1 source) Family history of ischemic heart disease and other diseases of the circulatory system; Translations: [Family history of abdominal aortic aneurysm (AAA)] Onset: 5 Episodic Spondylosis; intervertebral disc disorders; other back problems (14 sources) Degeneration of lumbar intervertebral disc; Translations: [Degeneration of intervertebral disc of lumbar region] 11-16-2024 Chronic Spondylosis; intervertebral disc disorders; other back problems (20 sources) Spinal stenosis of lumbar region; Translations: [Spinal stenosis, lumbar region without neurogenic claudication] Onset: 9 Resolved: 1 04-30-2020 Episodic Substance-related disorders (20 sources) Nicotine dependence; Translations: [...] (1 source) Patient encounter status 01-24-2025 Unclassified (8 sources) Spinal stenosis of lumbar region with neurogenic claudication; Translations: [M48.062 - Spinal stenosis, lumbar region with neurogenic claudication] Unclassified (1 source) Dense breast tissue; Translations: [...] unspecified whether serious comorbidity present] Onset: 4 Unclassified (1 source) Other intervertebral disc degeneration, lumbar region with discogenic back pain and lower extremity pain; Translations: [Other intervertebral disc degeneration, lumbar region with discogenic back pain and lower extremity pain] Onset: 5 Unclassified (2 sources) Low back pain, unspecified; Translations: [Low back pain, unspecified] Onset: 4 Urinary tract infections (15 sources) Acute cystitis; Translations: [Acute cystitis with hematuria] Onset: 4 Episodic Past or Other Problems Problem Classification Problem Date Documented Da te Episodic/Chronic Acute and unspecified renal failure (8 sources) Acute renal failure syndrome; Translations: [Acute kidney failure, unspecified] Onset: 08-12-2024 08-12-2024 Episodic Acute bronchitis (1 source) Acute bronchitis, unspecified; Translations: [Acute bronchitis with chronic obstructive pulmonary disease (COPD) (HCC) (HCC)] Onset: 04-20-2024 Episodic Biliary tract disease (20 sources) Calculus of gallbladder with cholecystitis; Translations: [Calculus of gallbladder with chronic cholecystitis without obstruction] Onset: 10-18-2006 Resolved: 12-15-2013 12-15-2013 Episodic Gastrointestinal hemorrhage (20 sources) Rectal hemorrhage; Translations: [Hemorrhage of anus and rectum] Onset: 12-13-2011 Resolved: 12-15-2013 Episodic Genitourinary symptoms and ill-defined conditions (20 sources) Rojas hematuria; Translations: [Gross hematuria] Onset: 03-30-2024 Episodic Malaise and fatigue (3 sources) Fatigue; Translations: [Other fatigue] Onset: 07-29-2024 05-31-2023 Episodic Other aftercare (1 source) Other predatory animal exterminator (current) drug therapy; Translations: [Encounter for long-term current use of medication] Onset: 04-20-2024 Episodic Other connective tissue disease (1 source) Pain in right leg; Translations: [Pain in right leg] Onset: 09-08-2024 Episodic Other connective tissue disease (1 source) Pain in right lower leg; Translations: [Pain in right lower leg] Onset: 09-08-2024 Episodic Other gastrointestinal disorders (1 source) Other specified diseases of the digestive system; Translations: [Gas bloat syndrome] Onset: 03-30-2024 Episodic Other infections; including parasitic (1 source) Personal history of other infectious and parasitic diseases; Translations: [History of sepsis] Onset: 03-30-2024 Episodic Other lower respiratory disease (20 sources) Respiratory tract congestion; Translations: [Other specified respiratory disorders] Onset: 09-11-2023 09-11-2023 Episodic Other lower respiratory disease (1 source) Other nonspecific abnormal finding of lung field; Translations: [Lung nodules] Onset: 06-23-2024 Episodic Other nervous system disorders (20 sources) Abnormal gait; Translations: [Unsteadiness on feet] Onset: 04-10-2022 Episodic Other nervous system disorders (1 source) Other abnormalities of gait and mobility; Translations: [Balance disorder] Onset: 07-29-2024 Episodic Pleurisy; pneumothorax; pulmonary collapse (2 sources) Pleural effusion; Translations: [Pleural effusion, not elsewhere classified] Onset: 08-11-2024 08-11-2024 Episodic Residual codes; unclassified (20 sources) History of lumbar laminectomy; Translations: [Other specified postprocedural states] Onset: 04-10-2022 Episodic Residual codes; unclassified (1 source) Tobacco use; Translations: [Tobacco use current] Onset: 11-23-2024 Episodic Residual codes; unclassified (1 source) Localized edema; Translations: [Bilateral leg edema] Onset: 11-18-2024 Episodic Septicemia (except in labor) (6 sources) Sepsis; Translations: [Sepsis, unspecified organism] Onset: 08-13-2024 08-02-2024 Episodic Viral infection (4 sources) Disease caused by 2019-nCoV; Translations: [COVID-19] Onset: 05-19-2024 Episodic Results Test Name Value Interpretation Reference Range Facility MR/PAT.ANEon 04-16-2025 MR/PAT.ANE Normal [facility] Surgery Visit Reporton 04-08 Surgery Visit Report Normal [facility] CNPNon 03-15-2025 CNPN Normal [facility] 12 Lead EKGon 03-13-2025 12 Lead EKG Normal [facility] Absolute lymphocyte countOrd ered By: ED PROVIDER on 03-13-2025 Lymphocytes Auto (Unsp spec) [#/Vol] 3.33 10*3/uL 0.83-4.51 [facility] Absolute neutrophil countOrd ered By: ED PROVIDER on 03-13-2025 Neutrophils (Bld) [#/Vol] 3.6 10*3/uL 2.0-7.7 [facility] Anion gap in Serum or Plasma Ordered By: Adan Barnard on 03-13-2025 Anion gap [Moles/Vol] 14 mmol/L 5-15 [facility] Automated lymphocyte count a s percentage of total leukocytesOrdered By: ED PROVIDER on 03-13-2025 Lymphocytes/100 WBC Auto (Unsp spec) 43.2 % High 19-41 [facility] BUN/creatinine ratioOrdered By: Adan Barnard on 03-13-2025 Urea nitrogen/Creatinine [Mass ratio] 22.6 mg/mg High 10- [facility] Basic Metabolic Profile (BMP )on 03-13-2025 BUN/CRE 22.6 RATIO High 06-28 [facility] Comment on above: Performed By: #### L 100.0100, L500.2500 ####[facility] [address] [place], [address] Calcium [Mass/Vol] 9.1 mg/dL Normal 7.6-11.0 [facility] Comment on above: Performed By: #### L 100.0100, L500.2500 ####[facility] [address] [place], [address] Chloride [Moles/Vol] 104 mmol/L Normal 98-108 [facility] Comment on above: Performed By: #### L 100.0100, L500.2500 ####[facility] [address] [place], [address] CO2 [Moles/Vol] 21.8 mmol/L Normal 21.0-32.0 [facility] Comment on above: Performed By: #### L 100.0100, L500.2500 ####[facility] [address] [place], [address] Creatinine [Mass/Vol] 0.56 mg/dL Low 0.70-1.20 [facility] Comment on above: Performed By: #### L 100.0100, L500.2500 ####[facility] [address] [place], [address] ECRCL 112.53 ml/min Normal 50-250 [facility] Comment on above: Performed By: #### L 100.0100, L500.2500 ####[facility] [address] [place], [address] GAP 14 Normal 5-15 [facility] Comment on above: Performed By: #### L 100.0100, L500.2500 ####[facility] [address] [place], [address] GFR/1.73 sq M.predicted among non-blacks MDRD (S/P/Bld) [Vol rate/Area] 102 mL/min/{1.73_m2} Normal >60 [facility] Comment on above: Result Comment: mL/m in/1.73m2 CKD-EPI Creatinine Equation (2020) Performed By: #### L 100.0100, L500.2500 ####[facility] [address] [place], [address] Glucose [Mass/Vol] 159 mg/dL High 70-99 [facility] Comment on above: Performed By: #### L 100.0100, L500.2500 ####[facility] [address] [place], [address] Potassium [Moles/Vol] 4.1 mmol/L Normal 3.3-5.1 [facility] Comment on above: Result Comment: Hemo lysis present, Results??could be affected.?? Performed By: #### L 100.0100, L500.2500 ####[facility] [address] [place], [address] Sodium [Moles/Vol] 140 mmol/L Normal 133-145 [facility] Comment on above: Performed By: #### L 100.0100, L500.2500 ####[facility] [address] [place], [address] Urea nitrogen [Mass/Vol] 13 mg/dL Normal 4-19 [facility] Comment on above: Performed By: #### L 100.0100, L500.2500 ####[facility] [address] [place], [address] Basophil percentageOrdered B y: ED PROVIDER on 03-13-2025 Basophils/100 WBC (Bld) 0.8 % 0-1 [facility] CBC W/Diff, Automatedon Absolute Lymph 3.33 X10 3/uL Normal 0.83-4.51 [facility] Comment on above: Performed By: #### L 100.0100, L500.2500 ####[facility] [address] [place], [address] Absolute Neut 3.6 X10 3/uL Normal 2.0-7.7 [facility] Comment on above: Performed By: #### L 100.0100, L500.2500 ####[facility] [address] [place], [address] Basophils/100 WBC (Bld) 0.8 % Normal 0-1 [facility] Comment on above: Performed By: #### L 100.0100, L500.2500 ####[facility] [address] [place], [address] Eosinophils/100 WBC (Bld) 2.3 % Normal 0-5 [facility] Comment on above: Performed By: #### L 100.0100, L500.2500 ####[facility] [address] [place], [address] Erythrocyte distribution width (RBC) [Ratio] 13.4 % Normal 11.6-14.6 [facility] Comment on above: Performed By: #### L 100.0100, L500.2500 ####[facility] [address] [place], [address] Hematocrit (Bld) [Volume fraction] 38.8 % Normal 37-47 [facility] Comment on above: Performed By: #### L 100.0100, L500.2500 ####[facility] [address] [place], [address] Hemoglobin (Bld) [Mass/Vol] 13.4 g/dL Normal 12.0-15.0 [facility] Comment on above: Performed By: #### L 100.0100, L500.2500 ####[facility] [address] [place], [address] IG% 0.100 Normal 0.0-0.9 [facility] Comment on above: Result Comment: IG% - Immature Granulocytes (promyelocytes, myelocytes andmetamyelocytes) > 1% indicates that a LEFT SHIFT is Present. Performed By: #### L 100.0100, L500.2500 ####[facility] [address] [place], [address] Lymphocytes/100 WBC (Bld) 43.2 % High 19-41 [facility] Comment on above: Performed By: #### L 100.0100, L500.2500 ####[facility] [address] [place], [address] MCH (RBC) [Entitic mass] 28.4 pg Normal 27.0-32.0 [facility] Comment on above: Performed By: #### L 100.0100, L500.2500 ####[facility] [address] [place], [address] MCHC (RBC) [Mass/Vol] 34.5 g/dL Normal 32-36 [facility] Comment on above: Performed By: #### L 100.0100, L500.2500 ####[facility] [address] [place], [address] MCV (RBC) [Entitic vol] 82.2 fL Normal 81-99 [facility] Comment on above: Performed By: #### L 100.0100, L500.2500 ####[facility] [address] [place], [address] Monocytes/100 WBC (Bld) 6.4 % Normal 0-10 [facility] Comment on above: Performed By: #### L 100.0100, L500.2500 ####[facility] [address] [place], [address] Neutrophils/100 WBC (Bld) 47.2 % Normal 47-70 [facility] Comment on above: Performed By: #### L 100.0100, L500.2500 ####[facility] [address] [place], [address] Nucleated RBC (Bld) [#/Vol] 0 10*3/uL Normal 0-5 [facility] Comment on above: Performed By: #### L 100.0100, L500.2500 ####[facility] [address] [place], [address] Platelet mean volume (Bld) [Entitic vol] 9.9 fL Normal 6.2-12.0 [facility] Comment on above: Performed By: #### L 100.0100, L500.2500 ####[facility] [address] [place], [address] Platelets (Bld) [#/Vol] 300 10*3/uL Normal 150-450 [facility] Comment on above: Performed By: #### L 100.0100, L500.2500 ####[facility] [address] [place], [address] RBC (Bld) [#/Vol] 4.72 10*6/uL Normal 4.2-5.4 [facility] Comment on above: Performed By: #### L 100.0100, L500.2500 ####[facility] [address] [place], [address] RDW SD 40.2 fl Normal 35.1-43.9 [facility] Comment on above: Performed By: #### L 100.0100, L500.2500 ####[facility] [address] [place], [address] WBC (Bld) [#/Vol] 7.7 10*3/uL Normal 4.4-11.0 [facility] Comment on above: Performed By: #### L 100.0100, L500.2500 ####[facility] [address] [place], [address] CNOVon 03-13-2025 CNOV Normal [facility] Carbon dioxide, total [Moles /volume] in Central venous bloodOrdered By: Adan Barnard on 03-13-2025 CO2 [Moles/Vol] 21.8 mmol/L 21.0-32.0 [facility] Chest PA and Lateralon 03-13 Chest PA and Lateral Normal [facility] Chloride assayOrdered By: Clyde Barnard on 03-13-2025 Chloride [Moles/Vol] 104 mmol/L 98-108 [facility] Emergency Department Summary on 03-13-2025 Emergency Department Summary Normal [facility] Eosinophil percentageOrdered By: ED PROVIDER on 03-13-2025 Eosinophils/100 WBC (Bld) 2.3 % 0-5 [facility] Erythrocyte distribution wid th ratioOrdered By: ED PROVIDER on 03-13-2025 Erythrocyte distribution width (RBC) [Ratio] 13.4 % 11.6-14.6 [facility] Erythrocyte distribution wid th standard deviationOrdered By: ED PROVIDER on 03-13-2025 Erythrocyte distribution width (RBC) [Ratio] 40.2 fl 35.1-43.9 [facility] GLUCOSE, BLOOD (POC)on 03-13 Glucose [Mass/Vol] 169 mg/dL Abnormal 74 - 99 mg/dL [facility] Comment on above: Glu2: Result Confirm ed Location:[address], [place], [address] The Accu-Chek Inform II glucose meter has not been approved for testing on patients receiving intensive medical intervention or therapy and results from this point of care glucose test should not be used for patient management decisions in these cases. Inaccurate results may also occur from other interfering factors, such as N-acetylcysteine (blood concentrations of greater than 5mg/dL), galactose, extremes of hematocrit (<10 or >65), or high doses of ascorbic acid (vitamin C) greater than 3mg/dL. Consider alternate testing mechanisms (e.g. core lab, blood gas instrument) in the above situations. Interpretation and review of laboratory results Abnormal [facility] Glomerular filtration rate ( GFR) estimation/1.73 sq m using serum, plasma, or whole bOrdered By: Adan Barnard on 03-13-2025 GFR/1.73 sq M.predicted among non-blacks MDRD (S/P/Bld) [Vol rate/Area] 102 mL/min/{1.73_m2} >60 [facility] Comment on above: mL/min/1.73m2 CKD-EP I Creatinine Equation (2020) Hematocrit Auto (Bld) [Volum e fraction]Ordered By: ED PROVIDER on 03-13-2025 Hematocrit (Bld) [Volume fraction] 38.8 % 37-47 [facility] Hemoglobin measurementOrdere d By: ED PROVIDER on 03-13-2025 Hemoglobin (Bld) [Mass/Vol] 13.4 g/dL 12.0-15.0 [facility] Immature granulocytes/100 WB C Auto (Bld)Ordered By: ED PROVIDER on 03-13-2025 Immature granulocytes/100 WBC (Bld) 0.100 % 0.0-0.9 [facility] Comment on above: IG% - Immature Granu locytes (promyelocytes, myelocytes and metamyelocytes) > 1% indicates that a LEFT SHIFT is Present. L501.4021on 03-13-2025 Trop T High Sen 18 ng/L High <=14 [facility] Comment on above: Performed By: #### L 501.4021 ####[facility] [address] [place], [place], [address] MCV (mean corpuscular volume ) determinationOrdered By: ED PROVIDER on 03-13-2025 MCV (RBC) [Entitic vol] 82.2 fL 81-99 [facility] Mean corpuscular hemoglobin (MCH) determinationOrdered By: ED PROVIDER on 03-13-2025 MCH (RBC) [Entitic mass] 28.4 pg 27.0-32.0 [facility] Mean corpuscular hemoglobin concentration (MCHC) determinationOrdered By: ED PROVIDER on 03-13-2025 MCHC (RBC) [Mass/Vol] 34.5 g/dL 32-36 [facility] Mean platelet volume determi nationOrdered By: ED PROVIDER on 03-13-2025 Platelet mean volume (Bld) [Entitic vol] 9.9 fL 6.2-12.0 [facility] Monocyte percentageOrdered B y: ED PROVIDER on 03-13-2025 Monocytes/100 WBC (Bld) 6.4 % 0-10 [facility] Neutrophil percentageOrdered By: ED PROVIDER on 03-13-2025 Neutrophils/100 WBC (Bld) 47.2 % 47-70 [facility] Nucleated red blood cell per centageOrdered By: ED PROVIDER on 03-13-2025 Nucleated RBC/100 WBC (Bld) [Ratio] 0 % 0-5 [facility] Platelet countOrdered By: ED PROVIDER on 03-13-2025 Platelets (Bld) [#/Vol] 300 10*3/uL 150-450 [facility] Potassium measurement (mass/ volume)Ordered By: Adan Barnard on 03-13-2025 Potassium (Unsp spec) [Mass/Vol] 4.1 mmol/L 3.3-5.1 [facility] Comment on above: Hemolysis present, R esults could be affected. RBC Auto (Bld) [#/Vol]Ordere d By: ED PROVIDER on 03-13-2025 RBC (Bld) [#/Vol] 4.72 10*6/uL 4.2-5.4 [facility] Serum creatinine measurement (mass/volume)Ordered By: Adan Barnard on 03-13-2025 Creatinine [Mass/Vol] 0.56 mg/dL Low 0.70-1.20 [facility] Serum glucose measurement (m ass/volume)Ordered By: Adan Barnard on 03-13-2025 Glucose [Mass/Vol] 159 mg/dL High 70-99 [facility] Serum or plasma calcium pradip urement (mass/volume)Ordered By: Adan Barnard on 03-13-2025 Calcium [Mass/Vol] 9.1 mg/dL 7.6-11.0 [facility] Serum or plasma urea nitroge n measurement (mass/volume)Ordered By: Adan Barnard on 03-13-2025 Urea nitrogen [Mass/Vol] 13 mg/dL 4-19 [facility] Sodium levelOrdered By: Adan Barnard on 03-13-2025 Sodium [Moles/Vol] 140 mmol/L 133-145 [facility] Troponin T.cardiac [Mass/vol ume] in Serum or Plasma by High sensitivity methodOrdered By: Adan Barnard on 03-13-2025 Troponin T.cardiac High sensitivity method [Mass/Vol] 18 ng/L High <14 [facility] White blood cell (WBC) count Ordered By: ED PROVIDER on 03-13-2025 WBC (Bld) [#/Vol] 7.7 10*3/uL 4.4-11.0 [facility] CNOVon 03-02-2025 CNOV Normal [facility] XR ANKLE 2V AP/LAT RTon - XR ANKLE 2V AP/LAT RT Normal [facility] XR FOOT 3V AP/LAT/OBL RTon 0 03-02-2025 XR FOOT 3V AP/LAT/OBL RT Normal [facility] Bacteria Ur Culton Bacteria identified Cx Nom (U) ORGANISM ID: 1 10,000 -<50,000 CFU/ml Normal urogenital bill Normal [facility] Comment on above: Performed By: #### 6 30-4 ####[facility] LABCLIA [id number] [address] STATES OF [facility] CNOVon 02-25-2025 CNOV Normal [facility] UA DIP, URINE (POC)on 2024 BILIRUBIN UA (POCT) Negative Negative [facility] CLARITY UA (POCT) Clear [facility] COLOR UA (POCT) Yellow [facility] GLUCOSE UA (POCT) Negative Negative mg/dL [facility] Hemoglobin Ql (U) Negative Negative [facility] KETONE UA (POCT) Negative Negative mg/dL [facility] LEUKOCYTES UA (POCT) Negative Negative [facility] NITRITE UA (POCT) Negative Negative [facility] PH UA (POCT) 5.5 4.5 - 8.0 [facility] Protein Ql (U) Negative Negative mg/dL [facility] SPECIFIC GRAVITY UA (POCT) 1.01 1.005 - 1.030 [facility] UROBILINOGEN UA (POCT) 0.2 Leonie l E.U./dL [facility] Location:[facility], [address] [place] [address], [place], [place], [id number] [place] [address] POINT OF CARE [facility] Orthopedic Visit Reporton Orthopedic Visit Report Normal [facility] Bacteria Ur Culton Bacteria identified Cx Nom (U) ORGANISM ID: 1 <10,000 CFU/ml Normal urogenital bill Normal [facility] Comment on above: Performed By: #### 6 30-4 ####[facility] LABCLIA [id number] [place] [address] [place] CNOVon 01-12-2025 CNOV Normal [facility] UA DIP, URINE (POC)on 2024 BILIRUBIN UA (POCT) Negative Negative [facility] CLARITY UA (POCT) Clear [facility] COLOR UA (POCT) Yellow [facility] GLUCOSE UA (POCT) Negative Negative mg/dL [facility] Hemoglobin Ql (U) Negative Negative [facility] KETONE UA (POCT) Negative Negative mg/dL [facility] LEUKOCYTES UA (POCT) Negative Negative [facility] NITRITE UA (POCT) Negative Negative [facility] PH UA (POCT) 6 4.5 - 8.0 [facility] Protein Ql (U) Negative Negative mg/dL [facility] SPECIFIC GRAVITY UA (POCT) 1.015 1.005 - 1.030 [facility] UROBILINOGEN UA (POCT) 0.2 Leonie l E.U./dL [facility] Location:[address], [address] [place] [address] POINT OF CARE [facility] CBC panel Auto (Bld)on 12-25 Erythrocyte distribution width (RBC) [Ratio] 14.4 % Normal 11.5-15.0 [facility] Comment on above: Order Comment: Speci men Type: BLOOD SPECIMENOrdering Facility: [facility] Address: [address] [place] [address] Performed By: #### 5 8410-2 ####[facility] LABCLIA [id number] [place] [address] [place] Hematocrit (Bld) [Volume fraction] 42.3 % Normal 36.0-46.0 [facility] Comment on above: Order Comment: Speci men Type: BLOOD SPECIMENOrdering Facility: [facility] Address: [address] [place] [address] Performed By: #### 5 8410-2 ####[facility] LABCLIA [id number] [place] [address] [place] Hemoglobin (Bld) [Mass/Vol] 13.6 g/dL Normal 11.5-15.5 [facility] Comment on above: Order Comment: Speci men Type: BLOOD SPECIMENOrdering Facility: [facility] Address: [address] [place] [address] Performed By: #### 5 8410-2 ####[facility] LABIA [id number] [place] [address] [place] MCH (RBC) [Entitic mass] 26.7 pg Normal 26.0-34.0 [facility] Comment on above: Order Comment: Speci men Type: BLOOD SPECIMENOrdering Facility: [facility] Address: [address] [place] [address] Performed By: #### 5 8410-2 ####[facility] LABIA [id number] [place] [address] [place] MCHC (RBC) [Mass/Vol] 32.2 g/dL Normal 30.5-36.[address] [facility] Comment on above: Order Comment: Speci men Type: BLOOD SPECIMENOrdering Facility: [facility] Address: [address] [place] [address] Performed By: #### 5 8410-2 ####[facility] LABCLIA [id number] [place] [address] [place] MCV (RBC) [Entitic vol] 83.1 fL Normal 80.0-100.0 [facility] Comment on above: Order Comment: Speci men Type: BLOOD SPECIMENOrdering Facility: [facility] Address: [address] [place] [address] Performed By: #### 5 8410-2 ####[facility] LABCLIA [id number] [place] [address] [place] Nucleated RBC (Bld) [#/Vol] 10*3/uL Normal <0.01 [facility] Comment on above: Order Comment: Speci men Type: BLOOD SPECIMENOrdering Facility: [facility] Address: [address] [place] [address] Performed By: #### 5 8410-2 ####[facility] LABCLIA [id number] [place] [address] [place] Platelet mean volume (Bld) [Entitic vol] 10.2 fL Normal 9.0-12.7 [facility] Comment on above: Order Comment: Speci men Type: BLOOD SPECIMENOrdering Facility: [facility] Address: [address] [place] [address] Performed By: #### 5 8410-2 ####[facility] LABIA [id number] [place] [address] [place] Platelets (Bld) [#/Vol] 297 10*3/uL Normal 150-400 [facility] Comment on above: Order Comment: Speci men Type: BLOOD SPECIMENOrdering Facility: [facility] Address: [address] [place] [address] Performed By: #### 5 8410-2 ####[facility] LABIA [id number] [place] [address] [place] RBC (Bld) [#/Vol] 5.09 10*6/uL Normal 3.90-5.20 [facility] Comment on above: Order Comment: Speci men Type: BLOOD SPECIMENOrdering Facility: [facility] Address: [address] [place] [address] Performed By: #### 5 8410-2 ####[facility] LABCLIA [id number] [place] [id number] [place] WBC (Bld) [#/Vol] 7.77 10*3/uL Normal 3.70-11.00 [facility] Comment on above: Order Comment: Speci men Type: BLOOD SPECIMENOrdering Facility: [facility] Address: [address] [place] [address] Performed By: #### 5 8410-2 ####[facility] LABCLIA [id number] [address] [address] [place] Comprehensive metabolic 2000 panelon 12-25-2024 Albumin [Mass/Vol] 4.3 g/dL Normal 3.9-4.9 [facility] Comment on above: Order Comment: Speci men Type: BLOOD SPECIMENOrdering Facility: [facility] Address: [address] [place] [address] Performed By: #### 1 9123-9, 14919-6, 00958-7 ####[facility] LABIA [id number] [place] [address] [place] ALP [Catalytic activity/Vol] 102 U/L Normal 34-123 [facility] Comment on above: Order Comment: Speci men Type: BLOOD SPECIMENOrdering Facility: [facility] Address: [address] [place] [address] Performed By: #### 1 9123-9, 67128-9, 31311-2 ####[facility] LABIA [id number] [place] [id number] [place] ALT [Catalytic activity/Vol] 14 U/L Normal 7-38 [facility] Comment on above: Order Comment: Speci men Type: BLOOD SPECIMENOrdering Facility: [facility] Address: [address] [place] [address] Performed By: #### 1 9123-9, 15468-0, 71002-2 ####[facility] LABCLIA [id number] [facility] [address] [address] [place] Anion gap [Moles/Vol] 12 mmol/L Normal 8-[address] [facility] Comment on above: Order Comment: Speci men Type: BLOOD SPECIMENOrdering Facility: [facility] Address: [address] [place], [place] [address] Performed By: #### 1 9123-9, 56456-6, 07720-2 ####[facility] LABCLIA [id number] [address] [address] [place] AST [Catalytic activity/Vol] 25 U/L Normal 13-35 [facility] Comment on above: Order Comment: Speci men Type: BLOOD SPECIMENOrdering Facility: [facility] Address: [address] [place], [place] [address] Performed By: #### 1 9123-9, 03037-9, 50399-6 ####[facility] LABCLIA [id number] [place] [id number] [place] Bilirubin [Mass/Vol] 0.3 mg/dL Normal 0.2-1.3 [facility] Comment on above: Order Comment: Speci men Type: BLOOD SPECIMENOrdering Facility: [facility] Address: [address] [place] [address] Performed By: #### 1 9123-9, 85785-9, 71734-6 ####[facility] LABIA [id number] [place] [id number] [place] Calcium [Mass/Vol] 9.4 mg/dL Normal 8.5-10.2 [facility] Comment on above: Order Comment: Speci men Type: BLOOD SPECIMENOrdering Facility: [facility] Address: [address] [place], [place] [address] Performed By: #### 1 9123-9, 40716-8, 57020-6 ####[facility] LABIA [id number] [place] [id number] [place] Chloride [Moles/Vol] 102 mmol/L Normal 98-107 [facility] Comment on above: Order Comment: Speci men Type: BLOOD SPECIMENOrdering Facility: [facility] Address: [address] [place] [address] Performed By: #### 1 9123-9, 41678-5, 37210-7 ####[facility] LABCLIA [id number] [place] [address] [place] CO2 [Moles/Vol] 26 mmol/L Normal 22-30 [facility] Comment on above: Order Comment: Speci men Type: BLOOD SPECIMENOrdering Facility: [facility] Address: [address] [place] [address] Performed By: #### 1 9123-9, 25205-9, 22697-5 ####[facility] LABCLIA [id number] [place] [address] [place] Creatinine [Mass/Vol] 0.54 mg/dL Low 0.58-0.[address] [facility] Comment on above: Order Comment: Speci men Type: BLOOD SPECIMENOrdering Facility: [facility] Address: [address] [place] [address] Performed By: #### 1 9123-9, 64660-9, 85169-1 ####[facility] LABCLIA [id number] [place] [address] [place] Creatinine and Glomerular filtration rate.predicted panel (S/P/Bld) 103 mL/min/1.73m??? Normal >=60 [facility] Comment on above: Order Comment: Speci men Type: BLOOD SPECIMENOrdering Facility: [facility] Address: [address] [place] [address] Result Comment: Inge mated Glomerular Filtration Rate [...] actual GFR. Performed By: #### 1 9123-9, 08993-3, 47641-6 ####[facility] LABCLIA [id number] [address] [address] [place] Glucose [Mass/Vol] 123 mg/dL High 74-99 [facility] Comment on above: Order Comment: Speci men Type: BLOOD SPECIMENOrdering Facility: [facility] Address: [address] [place] [address] Result Comment: The [place] Diabetes Association (ADA) provides guidance for cutoff [...] Standards of Medical Care in Diabetes 2016, [place] Diabetes Association. Diabetes Care. 2016.39(Suppl 1). Performed By: #### 1 9123-9, 74498-9, 01375-3 ####[facility] LABIA [id number] [place] [id number] [place] Potassium [Moles/Vol] 3.6 mmol/L Low 3.7-5.[address] [facility] Comment on above: Order Comment: Speci men Type: BLOOD SPECIMENOrdering Facility: [facility] Address: [address] [place] [address] Performed By: #### 1 9123-9, 57706-1, 88157-5 ####[facility] LABIA [id number] [place] [id number] [place] Protein [Mass/Vol] 7.3 g/dL Normal 6.3-8.0 [facility] Comment on above: Order Comment: Speci men Type: BLOOD SPECIMENOrdering Facility: [facility] Address: [address] [place] [address] Performed By: #### 1 9123-9, 57090-7, 16774-2 ####[facility] LABCLIA [id number] [address] [address] [place] Sodium [Moles/Vol] 140 mmol/L Normal 136-144 [facility] Comment on above: Order Comment: Speci men Type: BLOOD SPECIMENOrdering Facility: [facility] Address: [address] [place] [address] Performed By: #### 1 9123-9, 78235-8, 30516-3 ####[facility] LABIA [id number] [address] [address] [place] Urea nitrogen [Mass/Vol] 9 mg/dL Normal 7-21 [facility] Comment on above: Order Comment: Speci men Type: BLOOD SPECIMENOrdering Facility: [facility] Address: [address] [place] [address] Performed By: #### 1 9123-9, 52147-7, 54269-6 ####[facility] LABIA [id number] [place] [address] [place] HbA1c (Bld)on 12-25-2024 Average glucose Estimated from glycated hemoglobin (Bld) [Mass/Vol] 154 mg/dL Normal [facility] Comment on above: Order Comment: Speci men Type: BLOOD SPECIMENOrdering Facility: [facility] Address: [address] [place] [address] Result Comment: eAG: (Estimated average glucose) is a calculated value from HgbA1c and is patient account representative of the average blood glucose level in the last 2-3 month period. Performed By: #### 5 5454-3 ####[facility] [id number] [place] [id number] [place] HbA1c (Bld) [Mass fraction] 7.0 % High 4.3-5.6 [facility] Comment on above: Order Comment: Speci men Type: BLOOD SPECIMENOrdering Facility: [facility] Address: [address] [place] [address] Result Comment: Amer [place] Diabetes Association guidelines indicate that patients with HgbA1c in the range 5.7-6.4% are at increased risk for development of diabetes, and intervention by lifestyle modification may be beneficial. HgbA1c greater or equal to 6.5% is considered diagnostic of diabetes. Performed By: #### 5 5454-3 ####[facility] LABCLIA [id number] [place] [id number] [place] Lipid 1996 panelon 5 Cholesterol [Mass/Vol] 117 mg/dL Normal <200 [facility] Comment on above: Order Comment: Speci men Type: BLOOD SPECIMENOrdering Facility: [facility] Address: [address] [place] [address] Result Comment: <200 mg/dL, Desirable 200-239 mg/dL, Borderline high>239 mg/dL, High Performed By: #### 1 9123-9, 57657-8, 58910-2 ####[facility] LABCLIA [id number] [place] [id number] [place] Cholesterol in HDL [Mass/Vol] 23 mg/dL Low >39 [facility] Comment on above: Order Comment: Yesyi men Type: BLOOD SPECIMENOrdering Facility: [facility] Address: [address] [place] [address] Result Comment: 40-5 9 mg/dL, Acceptable>59 mg/dL, High: Negative risk factor for coronary heart disease<40 mg/dL, Low: Positive risk factor for coronary heart disease Performed By: #### 1 9123-9, 40549-2, 92734-5 ####[facility] LABCLIA [id number] [place] [id number] [facility] [place] Cholesterol in LDL [Mass/Vol] 44 mg/dL Normal <100 [facility] Comment on above: Order Comment: Yesyi men Type: BLOOD SPECIMENOrdering Facility: [facility] Address: [address] [place] [address] Result Comment: <100 mg/dL, Optimal 100-129 mg/dL, Near optimal/above optimal 130-159 mg/dL, Borderline high 160-189 mg/dL, High>189 mg/dL, Very highSecondary prevention optimal LDL Cholesterol levels are recommended to be < 70 mg/dL Performed By: #### 1 9123-9, 67287-1, 28364-2 ####[facility] LABCLIA [id number] [address] [address] [place] Cholesterol in LDL/Cholesterol in HDL [Mass ratio] 1.91 {ratio} Normal <2.54 [facility] Comment on above: Order Comment: Speci men Type: BLOOD SPECIMENOrdering Facility: [facility] Address: [address] [place] [address] Result Comment: Enedina grier:1. National Cholesterol Education Program ATP III Guideline At-A-Glance Quick Desk Reference: National Heart, Lung, and Blood [place]. National Institutes of Health. 2001: NIH Publication No. 01-3305.2. An International Atherosclerosis Society position paper: global recommendations for the management of dyslipidemia: executive summary, Atherosclerosis. 2014: 232(2):410-413. Performed By: #### 1 9123-9, 01489-1, 95156-0 ####[facility] LABIA [id number] [address] [address] [place] Cholesterol in VLDL [Mass/Vol] 50 mg/dL High <30 [facility] Comment on above: Order Comment: Yesyi men Type: BLOOD SPECIMENOrdering Facility: [facility] Address: [address] [place] [address] Performed By: #### 1 9123-9, 82643-2, 52773-0 ####[facility] LABCLIA [id number] [facility] [address] [address] [place] Cholesterol non HDL [Mass/Vol] 94 mg/dL Normal <130 [facility] Comment on above: Order Comment: Speci men Type: BLOOD SPECIMENOrdering Facility: [facility] Address: [address], [place] [address] Result Comment: <130 mg/dL, Optimal 130-159 mg/dL, Near optimal/above optimal 160-189 mg/dL, Borderline high 190-219 mg/dL, High>219 mg/dL, Very highSecondary prevention optimal non HDL Cholesterol levels are recommended to be <100 mg/dL Performed By: #### 1 9123-9, 08594-9, 39175-2 ####[facility] LABCLIA [id number] [facility] [address] [place] [address] [place] Cholesterol.total/Chol esterol in HDL [Mass ratio] 5.09 {ratio} Normal <5.10 [facility] Comment on above: Order Comment: Speci men Type: BLOOD SPECIMENOrdering Facility: [facility] Address: [address] [place] [address] Performed By: #### 1 9123-9, 82972-9, 38188-6 ####[facility] LABCLIA [id number] [address], [facility]95 [place] [facility] FASTING TIME 12 hrs Normal [facility] Comment on above: Order Comment: Speci men Type: BLOOD SPECIMENOrdering Facility: [facility] Address: [address] [place] [address] Performed By: #### 1 9123-9, 36679-9, 60979-5 ####[facility] LABCLIA [id number] [address] [place] [address] [place] [facility] Triglyceride [Mass/Vol] 249 mg/dL High <150 [facility] Comment on above: Order Comment: Speci men Type: BLOOD SPECIMENOrdering Facility: [facility] Address: [address] [place] [address] Result Comment: <150 mg/dL, Normal 150-199 mg/dL, Borderline high 200-499 mg/dL, High>499 mg/dL, Very high Performed By: #### 1 9123-9, 97032-9, 66850-3 ####[facility] LABCLIA [id number] [address] [place] [address] [place] Magnesium SerPl-mCncon 12-25 Magnesium [Mass/Vol] 1.9 mg/dL Normal 1.7-2.3 [facility] Comment on above: Order Comment: Speci men Type: BLOOD SPECIMENOrdering Facility: [facility] Address: [address] [place] [address] Performed By: #### 1 9123-9, 37123-5, 78259-4 ####[facility] LABCLIA [id number] [facility]ERElizabeth [id number] [place] [address] [place] Orthopedic Visit Reporton Orthopedic Visit Report Normal [facility] Magnetic resonance imaging r eportOrdered By: Tab Martinez on 12-19-2024 Study report [facility] Imaging Services [address] [place] [address] Spine Lumbar (Routine) MR#: [id number] Acct: [id number] Name: ANYIGARLAND E Rep #: [id number] : 1960 F 64 From: George Martinez DO PCP: Dr. Willam Estrada MD Status: RE G CLI Study:Spine Lumbar (Routine) Date of Exam: 12/18/24 Exam# [id number] Ordering Dr: Néstor Cabello PA PROCEDURE: SPINE [...] KEVIN Beckham; Dr. Willam Estrada MD ~ [employer] Operator: Signed [facility] Spine Lumbar (Routine)on Spine Lumbar (Routine) Normal [facility] CNPTOUTREACHon 12-11-2024 CNPTOUTREACH Normal [facility] CNPTOUTREACHon 12-09-2024 CNPTOUTREACH Normal [facility] CNPTOUTREACHon 12-04-2024 CNPTOUTREACH Normal [facility] CNPNon 11-26-2024 CNPN Normal [facility] CNOVon 11-25-2024 CNOV Normal [facility] CNOVon 11-24-2024 CNOV Normal [facility] CT Chest for screening [facility] ntraston 11-23-2024 IMPRESSION: LungRADS category: 2 S LungRADS modifier: Significant other (S), coronary artery calcification, moderate or severe LungRADS 0 reason: n/a Recommendations: Continue annual screening with LDCT in 12 months. Other actionable findings: Reference: [employer]. Lung CT Screening Reporting and Data System (Lung-RADS). Available at: http://www.acr.org/Qualit y-Safety/Resources/LungRA DS [employer] Operator: OLIVE Transcribe Date/Time: Nov 23 2024 4:24P Dictated by : RACHEL GUEVARA MD This examination was interpreted and the report reviewed and electronically signed by: RACHEL GUEVARA MD on Nov 23 2024 8:04PM [facility] DIVISION OF RADIOLOGY * * *Final Report* * * DATE OF EXAM: Nov 23 2024 3:54PM [facility] 0562 - CT LUNG SCREEN [facility] / PROCEDURE REASON: Tobacco use current * [...] without contrast. MQ: CTLCS_6 Patient characteristics: * Pckg-ig-Ksrhm: 1960; Age at exam: 64 years * Gender: Female * Lung Disease: Asymptomatic (no signs or symptoms of lung disease) * Number of Pack Years: 54 * Current smoker (=0) or Number of Years since Quit: 0 * Ordering provider and NPI: JUSTYNA MORA [id number] * Interpreting radiologist and NPI: Jade [id number] Exam acquisition parameters: * Exam Date: 11/23/2024 3:54 PM * Site: [facility] * * CT System Adult Crossing Guard: Siemens * CT System Model: Sensation * [...] No significant findings. DIVISION OF RADIOLOGY Provider, [facility] - 11/23/2024 * * *Final Report* * * DATE OF EXAM: Nov 23 2024 3:54PM [facility] 0562 - CT LUNG SCREEN WO IVCON / PROCEDURE REASON: Tobacco use current * [...] without contrast. MQ: CTLCS_6 Patient characteristics: * Mzwt-ca-Tcsui: 1960; Age at exam: 64 years * Gender: Female * Lung Disease: Asymptomatic (no signs or symptoms of lung disease) * Number of Pack Years: 54 * Current smoker (=0) or Number of Years since Quit: 0 * Ordering provider and NPI: JUSTYNA MORA [id number] * Interpreting radiologist and NPI: Jade [id number] Exam acquisition parameters: * Exam Date: 11/23/2024 3:54 PM * Site: [facility] * * CT System Adult Crossing Guard: Siemens * CT System Model: Sensation * [...] in 12 months. Other actionable findings: Reference: [employer]. Lung CT Screening Reporting and Data System (Lung-RADS). Available at: http://www.acr.org/Qualit y-Safety/Resources/LungRA DS [employer] Operator: OLIVE Transcribe Date/Time: Nov 23 2024 4:24P Dictated by : RACHEL GUEVARA MD This examination was interpreted and the report reviewed and electronically signed by: RACHEL GUEVARA MD on Nov 23 2024 8:04PM EST [facility] Radiology Study observation (narrative) [facility] CT Chest for screening WO co ntrastOrdered By: Ccf Provider on 11-23-[address] [facility] [address] LUNG SCREEN WO IVCONon CT LUNG SCREEN WO IVCON Normal [facility] CNPNon 11-19-2024 CNPN Normal [facility] CNOVon 11-18-2024 CNOV Normal [facility] Orthopedic Visit Reporton Orthopedic Visit Report Normal [facility] NCS and/or EMG Patienton NCS and/or EMG Patient Normal [facility] PT D/C Summary (1)on 025 PT D/C Summary (1) Normal [facility] r [facility] Cardiology Visit Reporton Cardiology Visit Report Normal [facility] Office Visit Reporton 2024 Office Visit Report Normal [facility] DBT Breast - bilateral scree ningon [...] Indigo Dhaliwal M.D. Electronically signed on: 10/07/2024 [employer] Operator: ANAMIKA Transcribe Date/Time: Oct 07 2024 3:03P Dictated by: INDIGO DHALIWAL MD This examination was interpreted and the report reviewed and electronically signed by: INDIGO DHALIWAL MD on Oct 07 2024 10:49PM [facility] DIVISION OF RADIOLOGY * * *Final Report* * * DATE OF EXAM: Oct 07 2024 3:26PM [facility] [[email or web address]] 0582 - JAVIER SCREENING W STARLA / PROCEDURE REASON: multiple diagnoses * * * * Physician Interpretation * * * * RESULT: [facility] [address] [place] [address] #[id number] - [facility] SCREENING W STARLA HISTORY: 64 year-old patient [...] significant interval changes. DIVISION OF RADIOLOGY Provider, [facility] - 10/07/2024 * * *Final Report* * * DATE OF EXAM: Oct 07 2024 3:26PM [facility] [[email or web address]] 0582 - JAVIER SCREENING W STARLA / PROCEDURE REASON: multiple diagnoses * * * * Physician Interpretation * * * * RESULT: [facility] [address] [place] [address] #[id number] - [facility] SCREENING W STARLA HISTORY: 64 year-old patient [...] Indigo Dhaliwal M.D. Electronically signed on: 10/07/2024 [employer] Operator: ANAMIKA Transcribe Date/Time: Oct 07 2024 3:03P Dictated by: INDIGO DHALIWAL MD This examination was interpreted and the report reviewed and electronically signed by: INDIGO DHALIWAL MD on Oct 07 2024 10:49PM EST [facility] Radiology Study observation (narrative) [facility] DBT Breast - bilateral scree ningOrdered By: Ccf Provider on 10-07-2024 [facility] JAVIER SCREENING W TOMOon 10-07 JAVIER SCREENING W STARLA [facility] Inital Evaluation (1) - PTon 09-25-2024 Inital Evaluation (1) - PT Normal [facility] Cerv Spine 4 or 5 Viewson Cerv Spine 4 or 5 Views Normal [facility] Orthopedic Visit Reporton Orthopedic Visit Report Normal [facility] Spine Cervical (Routine)on 1 11-04-2023 Spine Cervical (Routine) Normal [facility] CNPTOUTREACHon 08-14-2024 CNPTOUTREACH Normal [facility] CNOVon 08-12-2024 CNOV Normal [facility] CNOVon 08-11-2024 CNOV Normal [facility] Eosinophils Auto (Bld) [#/Vo l]on 08-11-2024 Eosinophils (Bld) [#/Vol] 0.98 10*3/uL High [facility] Interpretation and review of laboratory results Abnormal [facility] Eosinophils (Bld) [#/Vol] 0.98 10*3/uL High <0.46 [facility] Comment on above: Order Comment: Speci men Type: BLOOD SPECIMENOrdering Facility: [facility] Address: [address] [place] [address] Performed By: #### 7 11-2 ####[facility] LABCLIA [id number] [place] [address] [place] IgE SerPl-aCncon 08-11-2024 IgE Qn 413.0 kU/l High <114.0 [facility] Comment on above: Order Comment: Speci men Type: BLOOD SPECIMENOrdering Facility: [facility] Address: [address] [place] [address] Performed By: #### 1 9113-0 ####[facility] LABCLIA [id number] [place] [address] [place] NT-proBNP SerPl-ncon 08-11 Natriuretic peptide.B prohormone N-Terminal [Mass/Vol] 457 pg/mL High <125 [facility] Comment on above: Order Comment: Speci men Type: BLOOD SPECIMENOrdering Facility: [facility] Address: [address] [place] [address] Performed By: #### 3 3762-6 ####[facility] LABCLIA [id number] [place] [address] [place] CNPNon 08-10-2024 CNPN Normal [facility] Venous Duplex US, Unilateral on 08-10-2024 Venous Duplex US, Unilateral Normal [facility] 12 Lead EKGon 08-09-2024 12 Lead EKG Normal [facility] Absolute neutrophil countOrd ered By: Kemi Velez on 08-09-2024 Neutrophils (Bld) [#/Vol] 6.3 10*3/uL 2.0-7.7 [facility] Basic Metabolic Profile (BMP )on 08-09-2024 BUN/CRE 21.2 RATIO High 10-20 [facility] Comment on above: Order Comment: 'TROP ' Serial specimen #1, #2 or #3: 1 Performed By: #### L 500.2500, L100.0100, L501.4020 ####[facility] [address] [place], [address] CA,Total 9.2 mg/dL Normal 8.5-10.1 [facility] Comment on above: Order Comment: 'TROP ' Serial specimen #1, #2 or #3: 1 Performed By: #### L 500.2500, L100.0100, L501.4020 ####[facility] [address] [place], [address] Chloride [Moles/Vol] 109 mmol/L High 98-107 [facility] Comment on above: Order Comment: 'TROP ' Serial specimen #1, #2 or #3: 1 Performed By: #### L 500.2500, L100.0100, L501.4020 ####[facility] [address] [place], [address] CO2 [Moles/Vol] 22.0 mmol/L Normal 21.0-32.0 [facility] Comment on above: Order Comment: 'TROP ' Serial specimen #1, #2 or #3: 1 Performed By: #### L 500.2500, L100.0100, L501.4020 ####[facility] [address] [place], [address] Creatinine [Mass/Vol] 0.52 mg/dL Low 0.55-1.02 [facility] Comment on above: Order Comment: 'TROP ' Serial specimen #1, #2 or #3: 1 Result Comment: The validity of the calculated GFR GFRAA in patients over70 years has not been determined. Clinical correlation isessential. Performed By: #### L 500.2500, L100.0100, L501.4020 ####[facility] [address] [place], [address] ECRCL 122.78 ml/min Normal [facility] Comment on above: Order Comment: 'TROP ' Serial specimen #1, #2 or #3: 1 Performed By: #### L 500.2500, L100.0100, L501.4020 ####[facility] [address] [facility] [address] EST GFR - AA 153 mL/min Normal >60 [facility] Comment on above: Order Comment: 'TROP ' Serial specimen #1, #2 or #3: 1 Result Comment: Afri can Spanish GFR Calc Performed By: #### L 500.2500, L100.0100, L501.4020 ####[facility] [address] [facility] [address] GAP 9 Normal 5-15 [facility] Comment on above: Order Comment: 'TROP ' Serial specimen #1, #2 or #3: 1 Performed By: #### L 500.2500, L100.0100, L501.4020 ####[facility] [address] [facility] [address] GFR/1.73 sq M.predicted among non-blacks MDRD (S/P/Bld) [Vol rate/Area] 126 mL/min/{1.73_m2} Normal >60 [facility] Comment on above: Order Comment: 'TROP ' Serial specimen #1, #2 or #3: 1 Result Comment: Non- GFR Calc Performed By: #### L 500.2500, L100.0100, L501.4020 ####[facility] [address] [place], [address] Glucose [Mass/Vol] 109 mg/dL High 74-106 [facility] Comment on above: Order Comment: 'TROP ' Serial specimen #1, #2 or #3: 1 Result Comment: Fast ing Glucose result from 100 to 125 mg/dLsuggests IMPAIRED HOMEOSTASIS per A.D.A. criteria. Performed By: #### L 500.2500, L100.0100, L501.4020 ####[facility] [address] [place], [address] Potassium [Moles/Vol] 3.5 mmol/L Normal 3.5-5.1 [facility] Comment on above: Order Comment: 'TROP ' Serial specimen #1, #2 or #3: 1 Performed By: #### L 500.2500, L100.0100, L501.4020 ####[facility] [address] [place], [address] Sodium [Moles/Vol] 140 mmol/L Normal 136-145 [facility] Comment on above: Order Comment: 'TROP ' Serial specimen #1, #2 or #3: 1 Performed By: #### L 500.2500, L100.0100, L501.4020 ####[facility] [address] [place], [address] Urea nitrogen [Mass/Vol] 11 mg/dL Normal 7-18 [facility] Comment on above: Order Comment: 'TROP ' Serial specimen #1, #2 or #3: 1 Performed By: #### L 500.2500, L100.0100, L501.4020 ####[facility] [address] [place], [address] Basophil percentageOrdered B y: Kemi Velez on 08-09-2024 Basophils/100 WBC (Bld) 0.4 % 0-1 [facility] Bilirubin Test strip Ql (U)O rdered By: Julián Schrader on 08-09-2024 Bilirubin Ql (U) Negative Negative [facility] Blood urea nitrogen (BUN)/cr eatinine ratioOrdered By: Kemi Velez on 08-09-2024 Urea nitrogen/Creatinine [Mass ratio] 21.2 mg/mg High 10-20 [facility] CBC W/Diff, Automatedon 12- Absolute Lymph 3.06 X10 3/uL Normal 0.83-4.51 [facility] Comment on above: Performed By: #### L 500.2500, L100.0100, L501.4020 ####[facility] [address] [place], [address] Absolute Neut 6.3 X10 3/uL Normal 2.0-7.7 [facility] Comment on above: Performed By: #### L 500.2500, L100.0100, L501.4020 ####[facility] [address] [place], [address] Basophils/100 WBC (Bld) 0.4 % Normal 0-1 [facility] Comment on above: Performed By: #### L 500.2500, L100.0100, L501.4020 ####[facility] [address] [place], [address] Eosinophils/100 WBC (Bld) 13.3 % High 0-5 [facility] Comment on above: Performed By: #### L 500.2500, L100.0100, L501.4020 ####[facility] [address] [place], [address] Erythrocyte distribution width (RBC) [Ratio] 13.6 % Normal 11.6-14.6 [facility] Comment on above: Performed By: #### L 500.2500, L100.0100, L501.4020 ####[facility] [address] [place], [address] Hematocrit (Bld) [Volume fraction] 34.9 % Low 37-47 [facility] Comment on above: Performed By: #### L 500.2500, L100.0100, L501.4020 ####[facility] [address] [place], [address] Hemoglobin (Bld) [Mass/Vol] 11.9 g/dL Low 12.0-15.0 [facility] Comment on above: Performed By: #### L 500.2500, L100.0100, L501.4020 ####[facility] [address] [place], [address] IG% 0.600 Normal 0.0-0.9 [facility] Comment on above: Result Comment: IG% - Immature Granulocytes (promyelocytes, myelocytes andmetamyelocytes) > 1% indicates that a LEFT SHIFT is Present. Performed By: #### L 500.2500, L100.0100, L501.4020 ####[facility] [address] [place], [address] Lymphocytes/100 WBC (Bld) 25.9 % Normal 19-41 [facility] Comment on above: Performed By: #### L 500.2500, L100.0100, L501.4020 ####[facility] [address] [place], [address] MCH (RBC) [Entitic mass] 29.0 pg Normal 27.0-32.0 [facility] Comment on above: Performed By: #### L 500.2500, L100.0100, L501.4020 ####[facility] [address] [place], [address] MCHC (RBC) [Mass/Vol] 34.1 g/dL Normal 32-36 [facility] Comment on above: Performed By: #### L 500.2500, L100.0100, L501.4020 ####[facility] [address] [place], [address] MCV (RBC) [Entitic vol] 84.9 fL Normal 81-99 [facility] Comment on above: Performed By: #### L 500.2500, L100.0100, L501.4020 ####[facility] [address] [place], [address] Monocytes/100 WBC (Bld) 6.5 % Normal 0-10 [facility] Comment on above: Performed By: #### L 500.2500, L100.0100, L501.4020 ####[facility] [address] [place], [address] Neutrophils/100 WBC (Bld) 53.3 % Normal 47-70 [facility] Comment on above: Performed By: #### L 500.2500, L100.0100, L501.4020 ####[facility] [address] [place], [address] Nucleated RBC (Bld) [#/Vol] 0 10*3/uL Normal 0-5 [facility] Comment on above: Performed By: #### L 500.2500, L100.0100, L501.4020 ####[facility] [address] [place], [address] Platelet mean volume (Bld) [Entitic vol] 9.8 fL Normal 6.2-12.0 [facility] Comment on above: Performed By: #### L 500.2500, L100.0100, L501.4020 ####[facility] [address] [place], [address] Platelets (Bld) [#/Vol] 353 10*3/uL Normal 150-450 [facility] Comment on above: Performed By: #### L 500.2500, L100.0100, L501.4020 ####[facility] [address] [place], [address] RBC (Bld) [#/Vol] 4.11 10*6/uL Low 4.2-5.4 [facility] Comment on above: Performed By: #### L 500.2500, L100.0100, L501.4020 ####[facility] [address] [place], [address] RDW SD 41.8 fl Normal 35.1-43.9 [facility] Comment on above: Performed By: #### L 500.2500, L100.0100, L501.4020 ####[facility] [address] [place], [address] WBC (Bld) [#/Vol] 11.8 10*3/uL High 4.4-11.0 [facility] Comment on above: Performed By: #### L 500.2500, L100.0100, L501.4020 ####[facility] [address] [place], [address] CTA Chest W/WO Contraston CTA Chest W/WO Contrast Normal [facility] Carbon dioxide measurementOr dered By: Kemi Velez on 08-09-2024 CO2 [Moles/Vol] 22.0 mmol/L 21.0-32.0 [facility] Chest PA and Lateralon 08-09 Chest PA and Lateral Normal [facility] Chloride measurementOrdered By: Kemi Velez on 08-09-2024 Chloride [Moles/Vol] 109 mmol/L High 98-107 [facility] D-Dimer Quantitative (DVT/PE )on 08-09-2024 D-DIMER QUANT 1.22 FEU/ug/m Invalid Interpretation Code 0.27-0.49 [facility] Comment on above: Result Comment: D-Di riley ELEVATED (>0.49): Additional studies and clinicalassessments are indicated to conclude diagnosis of:Deep Vein Thrombosis (DVT) or Pulmonary Embolism (PE)CRITICAL VALUE CALLED TO ZENOBIA ISSAN110/10/23 1650 Geena Blackmon.RESULTS READ BACK BY SAME. Performed By: #### L 300.8000 ####[facility] [address] [place], [address] D-dimer measurement for deep venous thrombosisOrdered By: Kemi Velez on 08-09-2024 D-Dimer Quantitative (PE/DVT) 1.22 FEU/ug/m High 0.27-0.49 [facility] Comment on above: D-Dimer ELEVATED (>0 .49): Additional studies and clinicalassessments are indicated to conclude diagnosis of:Deep Vein Thrombosis (DVT) or Pulmonary Embolism (PE)CRITICAL VALUE CALLED TO ZENOBIA ISSAN110/10/23 1650 Geena Blackmon.RESULTS READ BACK BY SAME. Emergency Department Summary on 08-09-2024 Emergency Department Summary Normal [facility] Eosinophil percentageOrdered By: Kemi Velez on 08-09-2024 Eosinophils/100 WBC (Bld) 13.3 % High 0-5 [facility] Epithelial cells.squamous LM Ql (Urine sed)Ordered By: Julián Schrader on 08-09-2024 Epithelial cells.squamous LM.HPF (Urine sed) [#/Area] 0 /[HPF] 5-10 [facility] Erythrocyte distribution wid th ratioOrdered By: Kemi Velez on 08-09-2024 Erythrocyte distribution width (RBC) [Ratio] 13.6 % 11.6-14.6 [facility] Erythrocyte distribution wid th standard deviationOrdered By: Kemi Velez on 08-09-2024 Erythrocyte distribution width (RBC) [Entitic vol] 41.8 fL 35.1-43.9 [facility] Estimated glomerular filtrat ion rate (GFR) AmericanOrdered By: Kemi Velez on 08-09-2024 Estimated GFR (MDRD) Amer 153 mL/min >60 [facility] Comment on above: GFR Calc Estimation of creatinine taryn aranceOrdered By: Kemi Velez on 08-09-2024 Estimated Creatinine Clearance Calc 122.78 ml/min [facility] Glomerular filtration rate ( GFR) estimationOrdered By: Kemi Velez on 08-09-2024 Estimated GFR (MDRD) Non-Af Amer 126 mL/min >60 [facility] Comment on above: Non- GFR Calc Glucose Ql (U)Ordered By: Sebastian Schrader on 08-09-2024 Urine Glucose (UA) Normal mg/dl Normal [facility] Glucose measurementOrdered B y: Kemiseun Velez on 08-09-2024 Glucose [Mass/Vol] 109 mg/dL High 74-106 [facility] Comment on above: Fasting Glucose resu lt from 100 to 125 mg/dL suggests IMPAIRED HOMEOSTASIS per A.D.A. criteria. Hematocrit Auto (Bld) [Volum e fraction]Ordered By: Kemi Velez on 08-09-2024 Hematocrit (Bld) [Volume fraction] 34.9 % Low 37-47 [facility] Hemoglobin measurementOrdere d By: Kemi Velez on 08-09-2024 Hemoglobin (Bld) [Mass/Vol] 11.9 g/dL Low 12.0-15.0 [facility] Immature granulocytes/100 WB C Auto (Bld)Ordered By: Kemi Velez on 08-09-2024 Immature granulocytes/100 WBC (Bld) 0.600 % 0.0-0.9 [facility] Comment on above: IG% - Immature Granu locytes (promyelocytes, myelocytes and metamyelocytes) > 1% indicates that a LEFT SHIFT is Present. Influenza virus A and B and SARS-CoV-2 (COVID-19) and Respiratory syncytial virus RNAOrdered By: Kemi Velez on 08-09-2024 SARS-CoV-2 (COVID-19) RNA NICOLE+probe Ql (Unsp spec) [facility] Ketones Test strip Ql (U)Ord ered By: Julián Schrader on 08-09-2024 Ketones Ql (U) Negative Negative [facility] L501.4020on 08-09-2024 TROPONIN-I HS 4 pg/mL Normal 3.0-54.0 [facility] Comment on above: Order Comment: 'TROP ' Serial specimen #1, #2 or #3: 1 Result Comment: Melissa liu Note: New Test Units and Gender Specific Reference Ranges. For more information see Policy Stat Procedure [place] High Sensitivity Troponin (TNIH) and attachments. Performed By: #### L 500.2500, L100.0100, L501.4020 ####[facility] [address] [place], [place], [address] Lymphocytes Auto (Unsp spec) [#/Vol]Ordered By: Kemi Velez on 08-09-2024 Lymphocytes (Bld) [#/Vol] 3.06 10*3/uL 0.83-4.51 [facility] Lymphocytes/100 WBC Auto (Un sp spec)Ordered By: Kemi Velez on 08-09-2024 Lymphocytes/100 WBC (Bld) 25.9 % 19-41 [facility] M100.678on 08-09-2024 M100.678 Pending SARS-CoV-2 (COVID 19) Negative INFLUENZA A Negative INFLUENZA B Negative RSV PCR Negative Normal [facility] Comment on above: Performed By: #### M 100.678 ####[facility] [address] [place], [address] MCV (mean corpuscular volume ) determinationOrdered By: Kemi Velez on 08-09-2024 MCV (RBC) [Entitic vol] 84.9 fL 81-99 [facility] Mean corpuscular hemoglobin (MCH) determinationOrdered By: Kemi Velez on 08-09-2024 MCH (RBC) [Entitic mass] 29.0 pg 27.0-32.0 [facility] Mean corpuscular hemoglobin concentration (MCHC) determinationOrdered By: Kemi Velez on 08-09-2024 MCHC (RBC) [Mass/Vol] 34.1 g/dL 32-36 [facility] Mean platelet volume determi nationOrdered By: Kemi Velez on 08-09-2024 Platelet mean volume (Bld) [Entitic vol] 9.8 fL 6.2-12.0 [facility] Microscopic analysis of urin e for red blood cells (RBC)Ordered By: Julián Schrader on 08-09-2024 Urine RBC 0 SEEN /hpf 0-5 [facility] Monocyte percentageOrdered B y: Kemi Velez on 08-09-2024 Monocytes/100 WBC (Bld) 6.5 % 0-10 [facility] Mucus LM Ql (Urine sed)Order ed By: Julián Schrader on 08-09-2024 Mucus Ql (Urine sed) 0 SEEN /hpf [facility] Neutrophil percentageOrdered By: Kemi Velez on 08-09-2024 Neutrophils/100 WBC (Bld) 53.3 % 47-70 [facility] Nitrite Test strip Ql (U)Ord ered By: Julián Schrader on 08-09-2024 Nitrite Ql (U) Negative Negative [facility] Nucleated red blood cell per centageOrdered By: Kemi Velez on 08-09-2024 Nucleated RBC/100 WBC (Bld) [Ratio] 0 % 0-5 [facility] Platelet countOrdered By: Kaylynn Velez on 08-09-2024 Platelets (Bld) [#/Vol] 353 10*3/uL 150-450 [facility] Potassium measurementOrdered By: Kemi Velez on 08-09-2024 Potassium [Moles/Vol] 3.5 mmol/L 3.5-5.1 [facility] Protein Test strip Ql (U)Ord ered By: Julián Schrader on 08-09-2024 Protein Ql (U) 15 mg/dl High Negative [facility] RBC Auto (Bld) [#/Vol]Ordere d By: Kemi Velez on 08-09-2024 RBC (Bld) [#/Vol] 4.11 10*6/uL Low 4.2-5.4 [facility] Serum anion gap measurementO rdered By: Kemi Velez on 08-09-2024 Anion gap [Moles/Vol] 9 mmol/L 5-15 [facility] Serum or plasma calcium pradip urement (mass/volume)Ordered By: Kemi Velez on 08-09-2024 Calcium [Mass/Vol] 9.2 mg/dL 8.5-10.1 [facility] Serum or plasma creatinine m easurement (mass/volume)Ordered By: Kemi Velez on 08-09-2024 Creatinine [Mass/Vol] 0.52 mg/dL Low 0.55-1.02 [facility] Comment on above: The validity of the calculated GFR & GFRAA in patients over 70 years has not been determined. Clinical correlation is essential. Serum or plasma urea nitroge n measurement (mass/volume)Ordered By: Kemi Velez on 08-09-2024 Urea nitrogen [Mass/Vol] 11 mg/dL 7-18 [facility] Sodium levelOrdered By: Daniel Velez on 08-09-2024 Sodium [Moles/Vol] 140 mmol/L 136-145 [facility] Troponin IOrdered By: Deirdre Velez on 08-09-2024 Troponin I High Sensitivity 4 pg/mL 3.0-54.0 [facility] Comment on above: Please Note: New Evelyn t Units and Gender Specific Reference Ranges. For more information see Policy Stat Procedure [place] High Sensitivity Troponin (TNIH) and attachments. Urinalysis, Completeon 08-09 EPI,SQUAMOUS 0-5 SEEN Normal 5-10 [facility] Comment on above: Order Comment: ISHMAEL CTOR TO SPECIFY Performed By: #### L 400.0001 ####[facility] [address] [place] [address] BACTERIA 0 SEEN Normal None Seen [facility] Comment on above: Order Comment: ISHMAEL CTOR TO SPECIFY Performed By: #### L 400.0001 ####[facility] [address] [facility] [address] Mucus Ql (Urine sed) 0 SEEN Normal [facility] Comment on above: Order Comment: ISHMAEL CTOR TO SPECIFY Performed By: #### L 400.0001 ####[facility] [address] [facility] [address] RBC 0 SEEN Normal 0-5 [facility] Comment on above: Order Comment: ISHMAEL CTOR TO SPECIFY Performed By: #### L 400.0001 ####[facility] [address] [place], [address] WBC 0 SEEN Normal 0-5 [facility] Comment on above: Order Comment: ISHMAEL CTOR TO SPECIFY Performed By: #### L 400.0001 ####[facility] [address] [place], [address] Urine blood detectionOrdered By: Julián Schrader on 08-09-2024 Urine Occult Blood Negative Negative [facility] Urine clarityOrdered By: Ramón Schrader on 08-09-2024 Clarity (U) Clear Clear [facility] Urine color determinationOrd ered By: Julián Schrader on 08-09-2024 Color (U) Yellow Yellow [facility] Urine leukocyte esterase det ection by dipstickOrdered By: Julián Schrader on 08-09-2024 Leukocyte esterase Test strip Ql (U) Negative Negative [facility] Urine pHOrdered By: Julián Connors on 08-09-2024 pH (U) 6.0 [pH] 5.0 - 8.0 [facility] Urine sediment bacteria coun t by microscopy (number/high power field)Ordered By: Julián Schrader on 08-09-2024 Bacteria LM.HPF (Urine sed) [#/Area] 0 /[HPF] None Seen [facility] Urine specific gravity measu rementOrdered By: Julián Schrader on 08-09-2024 Specific gravity (U) [Rel density] 1.010 1.002-1.030 [facility] Urobilinogen Ql (U)Ordered B y: Julián Schrader on 08-09-2024 Urine Urobilinogen Normal mg/dl Normal [facility] White blood cell (WBC) count Ordered By: Kemi Velez on 08-09-2024 WBC (Bld) [#/Vol] 11.8 10*3/uL High 4.4-11.0 [facility] White blood cell countOrdere d By: Julián Schrader on 08-09-2024 Urine WBC 0 SEEN /hpf 0-5 [facility] CNPTOUTREACHon 08-07-2024 CNPTOUTREACH Normal [facility] Culture, Blood (WB)on 2023 CUB Blood cultures x2, f rom two different sites No growth in 5 days. Normal [facility] Comment on above: Performed By: #### M 200.1000 ####[facility] [address] [place], [place], [address] Abdomen/Pelvis W IV Cont ONL Yon 08-05-2024 Abdomen/Pelvis W IV Cont ONLY Normal [facility] Absolute neutrophil countOrd ered By: Lissette Kylejohny on 08-05-2024 Neutrophils (Bld) [#/Vol] 7.1 10*3/uL 2.0-7.7 [facility] Albumin to globulin ratioOrd ered By: Lissetteanand Guerin on 08-05-2024 Albumin/Globulin [Mass ratio] 0.9 {ratio} 0.9-2.4 [facility] Basophil percentageOrdered B y: Lissette Guerin on 08-05-2024 Basophils/100 WBC (Bld) 0.4 % 0-1 [facility] Bedside Glucoseon 08-05-2024 FINGERSTICK GLU 189 mg/dL High 74-106 [facility] Comment on above: Result Comment: JAIME GEMENT OF PATIENT CARE PER NURSING PROTOCOL Performed By: #### L 501.080 ####[facility] [address] [place], [place], [address] FINGERSTICK GLU 154 mg/dL High 74-106 [facility] Comment on above: Result Comment: JAIME GEMENT OF PATIENT CARE PER NURSING PROTOCOL Performed By: #### L 501.080 ####[facility] [address] [place], [place], [address] Bilirubin Test strip Ql (U)O rdered By: Lissette Guerin on 08-05-2024 Bilirubin Ql (U) Negative Negative [facility] Bilirubin, totalOrdered By: Lissette Guerin on 08-05-2024 Bilirubin [Mass/Vol] 0.30 mg/dL 0.20-1.00 [facility] Comment on above: For patients on eltr ombopag therapy, use of Dimension [place] TBIL is not recommended. Blood urea nitrogen (BUN)/cr eatinine ratioOrdered By: Lissette Guerin on 08-05-2024 Urea nitrogen/Creatinine [Mass ratio] 21.8 mg/mg High 10-20 [facility] CBC W/Diff, Automatedon 11-2 Absolute Lymph 3.21 X10 3/uL Normal 0.83-4.51 [facility] Comment on above: Performed By: #### L 500.4050, L100.0100, L501.4020, L503.6005 ####[facility] [address] [place], [address] Absolute Neut 7.1 X10 3/uL Normal 2.0-7.7 [facility] Comment on above: Performed By: #### L 500.4050, L100.0100, L501.4020, L503.6005 ####[facility] [address] [place], [address] Basophils/100 WBC (Bld) 0.4 % Normal 0-1 [facility] Comment on above: Performed By: #### L 500.4050, L100.0100, L501.4020, L503.6005 ####[facility] [address] [place], [address] Eosinophils/100 WBC (Bld) 5.5 % High 0-5 [facility] Comment on above: Performed By: #### L 500.4050, L100.0100, L501.4020, L503.6005 ####[facility] [address] [place], [address] Erythrocyte distribution width (RBC) [Ratio] 13.2 % Normal 11.6-14.6 [facility] Comment on above: Performed By: #### L 500.4050, L100.0100, L501.4020, L503.6005 ####[facility] [address] [place], [address] Hematocrit (Bld) [Volume fraction] 35.9 % Low 37-47 [facility] Comment on above: Performed By: #### L 500.4050, L100.0100, L501.4020, L503.6005 ####[facility] [address] [place], [address] Hemoglobin (Bld) [Mass/Vol] 12.6 g/dL Normal 12.0-15.0 [facility] Comment on above: Performed By: #### L 500.4050, L100.0100, L501.4020, L503.6005 ####[facility] [address] [place], [address] IG% 0.400 Normal 0.0-0.9 [facility] Comment on above: Result Comment: IG% - Immature Granulocytes (promyelocytes, myelocytes andmetamyelocytes) > 1% indicates that a LEFT SHIFT is Present. Performed By: #### L 500.4050, L100.0100, L501.4020, L503.6005 ####[facility] [address] [place], [address] Lymphocytes/100 WBC (Bld) 27.2 % Normal 19-41 [facility] Comment on above: Performed By: #### L 500.4050, L100.0100, L501.4020, L503.6005 ####[facility] [address] [place], [address] MCH (RBC) [Entitic mass] 29.6 pg Normal 27.0-32.0 [facility] Comment on above: Performed By: #### L 500.4050, L100.0100, L501.4020, L503.6005 ####[facility] [address] [place], [address] MCHC (RBC) [Mass/Vol] 35.1 g/dL Normal 32-36 [facility] Comment on above: Performed By: #### L 500.4050, L100.0100, L501.4020, L503.6005 ####[facility] [address] [place], [address] MCV (RBC) [Entitic vol] 84.5 fL Normal 81-99 [facility] Comment on above: Performed By: #### L 500.4050, L100.0100, L501.4020, L503.6005 ####[facility] [address] [place], [address] Monocytes/100 WBC (Bld) 6.4 % Normal 0-10 [facility] Comment on above: Performed By: #### L 500.4050, L100.0100, L501.4020, L503.6005 ####[facility] [address] [place], [address] Neutrophils/100 WBC (Bld) 60.1 % Normal 47-70 [facility] Comment on above: Performed By: #### L 500.4050, L100.0100, L501.4020, L503.6005 ####[facility] [address] [place], [address] Nucleated RBC (Bld) [#/Vol] 0 10*3/uL Normal 0-5 [facility] Comment on above: Performed By: #### L 500.4050, L100.0100, L501.4020, L503.6005 ####[facility] [address] [place], [address] Platelet mean volume (Bld) [Entitic vol] 10.2 fL Normal 6.2-12.0 [facility] Comment on above: Performed By: #### L 500.4050, L100.0100, L501.4020, L503.6005 ####[facility] [address] [place], [address] Platelets (Bld) [#/Vol] 288 10*3/uL Normal 150-450 [facility] Comment on above: Performed By: #### L 500.4050, L100.0100, L501.4020, L503.6005 ####[facility] [address] [place], [address] RBC (Bld) [#/Vol] 4.25 10*6/uL Normal 4.2-5.4 [facility] Comment on above: Performed By: #### L 500.4050, L100.0100, L501.4020, L503.6005 ####[facility] [address] [place], [address] RDW SD 40.8 fl Normal 35.1-43.9 [facility] Comment on above: Performed By: #### L 500.4050, L100.0100, L501.4020, L503.6005 ####[facility] [address] [place], [address] WBC (Bld) [#/Vol] 11.8 10*3/uL High 4.4-11.0 [facility] Comment on above: Performed By: #### L 500.4050, L100.0100, L501.4020, L503.6005 ####[facility] [address] [place], [address] CTA Chest W/WO Contraston CTA Chest W/WO Contrast Normal [facility] Carbon dioxide measurementOr dered By: Lissette Guerin on 08-05-2024 CO2 [Moles/Vol] 23.0 mmol/L 21.0-32.0 [facility] Chloride measurementOrdered By: Lissette Guerin on 08-05-2024 Chloride [Moles/Vol] 107 mmol/L 98-107 [facility] Comprehensive Metabolic Prof ilon 08-05-2024 Albumin [Mass/Vol] 3.3 g/dL Normal 3.2-5.0 [facility] Comment on above: Order Comment: 'TROP ' Serial specimen #1, #2 or #3: 1 Performed By: #### L 500.4050, L100.0100, L501.4020, L503.6005 ####[facility] [address] [place], [address] Albumin/Globulin [Mass ratio] 0.9 {ratio} Normal 0.9-2.4 [facility] Comment on above: Order Comment: 'TROP ' Serial specimen #1, #2 or #3: 1 Performed By: #### L 500.4050, L100.0100, L501.4020, L503.6005 ####[facility] [address] [place], [address] ALK P 60 U/L Normal 45-117 [facility] Comment on above: Order Comment: 'TROP ' Serial specimen #1, #2 or #3: 1 Performed By: #### L 500.4050, L100.0100, L501.4020, L503.6005 ####[facility] [address] [place], [address] ALT [Catalytic activity/Vol] 16 U/L Normal 13-56 [facility] Comment on above: Order Comment: 'TROP ' Serial specimen #1, #2 or #3: 1 Performed By: #### L 500.4050, L100.0100, L501.4020, L503.6005 ####[facility] [address] [place], [address] AST [Catalytic activity/Vol] 19 U/L Normal 15-37 [facility] Comment on above: Order Comment: 'TROP ' Serial specimen #1, #2 or #3: 1 Performed By: #### L 500.4050, L100.0100, L501.4020, L503.6005 ####[facility] [address] [place], [address] Bilirubin [Mass/Vol] 0.30 mg/dL Normal 0.20-1.00 [facility] Comment on above: Order Comment: 'TROP ' Serial specimen #1, #2 or #3: 1 Result Comment: For patients on eltrombopag therapy, use of Dimension [place] TBIL is not recommended. Performed By: #### L 500.4050, L100.0100, L501.4020, L503.6005 ####[facility] [address] [place], [address] BUN/CRE 21.8 RATIO High 10-20 [facility] Comment on above: Order Comment: 'TROP ' Serial specimen #1, #2 or #3: 1 Performed By: #### L 500.4050, L100.0100, L501.4020, L503.6005 ####[facility] [address] [place], [address] CA,Total 8.5 mg/dL Normal 8.5-10.1 [facility] Comment on above: Order Comment: 'TROP ' Serial specimen #1, #2 or #3: 1 Performed By: #### L 500.4050, L100.0100, L501.4020, L503.6005 ####[facility] [address] [place], [address] Chloride [Moles/Vol] 107 mmol/L Normal 98-107 [facility] Comment on above: Order Comment: 'TROP ' Serial specimen #1, #2 or #3: 1 Performed By: #### L 500.4050, L100.0100, L501.4020, L503.6005 ####[facility] [address] [place], [address] CO2 [Moles/Vol] 23.0 mmol/L Normal 21.0-32.0 [facility] Comment on above: Order Comment: 'TROP ' Serial specimen #1, #2 or #3: 1 Performed By: #### L 500.4050, L100.0100, L501.4020, L503.6005 ####[facility] [address] [place], [address] Creatinine [Mass/Vol] 0.60 mg/dL Normal 0.55-1.02 [facility] Comment on above: Order Comment: 'TROP ' Serial specimen #1, #2 or #3: 1 Result Comment: The validity of the calculated GFR GFRAA in patients over70 years has not been determined. Clinical correlation isessential. Performed By: #### L 500.4050, L100.0100, L501.4020, L503.6005 ####[facility] [address] [place], [address] ECRCL 103.39 ml/min Normal [facility] Comment on above: Order Comment: 'TROP ' Serial specimen #1, #2 or #3: 1 Performed By: #### L 500.4050, L100.0100, L501.4020, L503.6005 ####[facility] [address] [facility] [address] EST GFR - AA 130 mL/min Normal >60 [facility] Comment on above: Order Comment: 'TROP ' Serial specimen #1, #2 or #3: 1 Result Comment: Afri can Spanish GFR Calc Performed By: #### L 500.4050, L100.0100, L501.4020, L503.6005 ####[facility] [address] [place], [address] GAP 8 Normal 5-15 [facility] Comment on above: Order Comment: 'TROP ' Serial specimen #1, #2 or #3: 1 Performed By: #### L 500.4050, L100.0100, L501.4020, L503.6005 ####[facility] [address] [place], [address] GFR/1.73 sq M.predicted among non-blacks MDRD (S/P/Bld) [Vol rate/Area] 108 mL/min/{1.73_m2} Normal >60 [facility] Comment on above: Order Comment: 'TROP ' Serial specimen #1, #2 or #3: 1 Result Comment: Non- GFR Calc Performed By: #### L 500.4050, L100.0100, L501.4020, L503.6005 ####[facility] [address] [place], [address] Globulin (S) [Mass/Vol] 3.7 g/dL Normal 2.2-4.2 [facility] Comment on above: Order Comment: 'TROP ' Serial specimen #1, #2 or #3: 1 Performed By: #### L 500.4050, L100.0100, L501.4020, L503.6005 ####[facility] [address] [place], [address] Glucose [Mass/Vol] 146 mg/dL High 74-106 [facility] Comment on above: Order Comment: 'TROP ' Serial specimen #1, #2 or #3: 1 Result Comment: Fast ing Glucose result greater than or equal to 126 mg/dLsuggests DIABETES MELLITUS per A.D.A. criteria. Performed By: #### L 500.4050, L100.0100, L501.4020, L503.6005 ####[facility] [address] [place], [address] Potassium [Moles/Vol] 3.3 mmol/L Low 3.5-5.1 [facility] Comment on above: Order Comment: 'TROP ' Serial specimen #1, #2 or #3: 1 Performed By: #### L 500.4050, L100.0100, L501.4020, L503.6005 ####[facility] [address] [place], [address] Sodium [Moles/Vol] 138 mmol/L Normal 136-145 [facility] Comment on above: Order Comment: 'TROP ' Serial specimen #1, #2 or #3: 1 Performed By: #### L 500.4050, L100.0100, L501.4020, L503.6005 ####[facility] [address] [place], [place], [id number] T PROT 7.0 g/dL Normal 6.4-8.2 [facility] Comment on above: Order Comment: 'TROP ' Serial specimen #1, #2 or #3: 1 Performed By: #### L 500.4050, L100.0100, L501.4020, L503.6005 ####[facility] [address] [place], [address] Urea nitrogen [Mass/Vol] 13 mg/dL Normal 7-18 [facility] Comment on above: Order Comment: 'TROP ' Serial specimen #1, #2 or #3: 1 Performed By: #### L 500.4050, L100.0100, L501.4020, L503.6005 ####[facility] [address] [place], [place], [id number] Discharge Instructionon 07-11 Discharge Instruction Normal [facility] Emergency Department Summary on 08-05-2024 Emergency Department Summary Normal [facility] Eosinophil percentageOrdered By: Lissette Guerin on 08-05-2024 Eosinophils/100 WBC (Bld) 5.5 % High 0-5 [facility] Epithelial cells.squamous LM Ql (Urine sed)Ordered By: Lissette Guerin on 08-05-2024 Epithelial cells.squamous LM.HPF (Urine sed) [#/Area] 0 /[HPF] 5-10 [facility] Erythrocyte distribution wid th ratioOrdered By: Lissette Guerin on 08-05-2024 Erythrocyte distribution width (RBC) [Ratio] 13.2 % 11.6-14.6 [facility] Erythrocyte distribution wid th standard deviationOrdered By: Lissette Guerin on 08-05-2024 Erythrocyte distribution width (RBC) [Entitic vol] 40.8 fL 35.1-43.9 [facility] Estimated glomerular filtrat ion rate (GFR) AmericanOrdered By: Lissette Guerin on 08-05-2024 Estimated GFR (MDRD) Amer 130 mL/min >60 [facility] Comment on above: GFR Calc Estimation of creatinine taryn aranceOrdered By: Lissette Guerin on 08-05-2024 Estimated Creatinine Clearance Calc 103.39 ml/min [facility] Glomerular filtration rate ( GFR) estimationOrdered By: Lissette Guerin on 08-05-2024 Estimated GFR (MDRD) Non-Af Amer 108 mL/min >60 [facility] Comment on above: Non- GFR Calc Glucose Ql (U)Ordered By: Fadi Guerin on 08-05-2024 Urine Glucose (UA) Normal mg/dl Normal [facility] Glucose measurementOrdered B y: Lissette Guerin on 08-05-2024 Glucose [Mass/Vol] 146 mg/dL High 74-106 [facility] Comment on above: Fasting Glucose resu lt greater than or equal to 126 mg/dL suggests DIABETES MELLITUS per A.D.A. criteria. [facility] deOrdered By: Neal Dunaway on 08-05-2024 Bedside Glucose (Misc Panel) 189 mg/dL High 74-106 [facility] Comment on above: MANAGEMENT OF PATIEN T CARE PER NURSING PROTOCOL Hematocrit Auto (Bld) [Volum e fraction]Ordered By: Lissette Guerin on 08-05-2024 Hematocrit (Bld) [Volume fraction] 35.9 % Low 37-47 [facility] Hemoglobin measurementOrdere d By: Lissette Guerin on 08-05-2024 Hemoglobin (Bld) [Mass/Vol] 12.6 g/dL 12.0-15.0 [facility] Immature granulocytes/100 WB C Auto (Bld)Ordered By: Lissette Guerin on 08-05-2024 Immature granulocytes/100 WBC (Bld) 0.400 % 0.0-0.9 [facility] Comment on above: IG% - Immature Granu locytes (promyelocytes, myelocytes and metamyelocytes) > 1% indicates that a LEFT SHIFT is Present. Ketones Test strip Ql (U)Ord ered By: Lissette Guerin on 08-05-2024 Ketones Ql (U) Negative Negative [facility] L501.4020on 08-05-2024 TROPONIN-I HS 3 pg/mL Normal 3.0-54.0 [facility] Comment on above: Order Comment: 'TROP ' Serial specimen #1, #2 or #3: 1 Result Comment: Melissa liu Note: New Test Units and Gender Specific Reference Ranges. For more information see Policy Stat Procedure [place] High Sensitivity Troponin (TNIH) and attachments. Performed By: #### L 500.4050, L100.0100, L501.4020, L503.6005 ####[facility] [address] [place], [address] Laboratory - Chemistry and C hemistry - challengeOrdered By: Lissette Guerin on 08-05-2024 AST [Catalytic activity/Vol] 19 U/L 15-37 [facility] Lactic Acidon 08-05-2024 Lactate [Moles/Vol] 0.9 mmol/L Normal 0.4-1.9 [facility] Comment on above: Order Comment: Y Performed By: #### L 500.4050, L100.0100, L501.4020, L503.6005 ####[facility] [address] [place], [place], [id number] Lactic acid measurementOrder ed By: Lissette Guerin on 08-05-2024 Lactate [Moles/Vol] 0.9 mmol/L 0.4-2.0 [facility] Lymphocytes Auto (Unsp spec) [#/Vol]Ordered By: Lissette Guerin on 08-05-2024 Lymphocytes (Bld) [#/Vol] 3.21 10*3/uL 0.83-4.51 [facility] Lymphocytes/100 WBC Auto (Un sp spec)Ordered By: Lissette Guerin on 08-05-2024 Lymphocytes/100 WBC (Bld) 27.2 % 19-41 [facility] MCV (mean corpuscular volume ) determinationOrdered By: Lissette Guerin on 08-05-2024 MCV (RBC) [Entitic vol] 84.5 fL 81-99 [facility] Mean corpuscular hemoglobin (MCH) determinationOrdered By: Lissette Guerin on 08-05-2024 MCH (RBC) [Entitic mass] 29.6 pg 27.0-32.0 [facility] Mean corpuscular hemoglobin concentration (MCHC) determinationOrdered By: Lissette Guerin on 08-05-2024 MCHC (RBC) [Mass/Vol] 35.1 g/dL 32-36 [facility] Mean platelet volume determi nationOrdered By: Lissette Guerin on 08-05-2024 Platelet mean volume (Bld) [Entitic vol] 10.2 fL 6.2-12.0 [facility] Microscopic analysis of urin e for red blood cells (RBC)Ordered By: Lissette Guerin on 08-05-2024 Urine RBC 0-5 SEEN /hpf 0-5 [facility] Monocyte percentageOrdered B y: Lissette Guerin on 08-05-2024 Monocytes/100 WBC (Bld) 6.4 % 0-10 [facility] Mucus LM Ql (Urine sed)Order ed By: Lissette Guerin on 08-05-2024 Mucus Ql (Urine sed) RARE /hpf [facility] Neutrophil percentageOrdered By: Lissette Guerin on 08-05-2024 Neutrophils/100 WBC (Bld) 60.1 % 47-70 [facility] Nitrite Test strip Ql (U)Ord ered By: Lissette Guerin on 08-05-2024 Nitrite Ql (U) Negative Negative [facility] Nucleated red blood cell per centageOrdered By: Lissette Guerin on 08-05-2024 Nucleated RBC/100 WBC (Bld) [Ratio] 0 % 0-5 [facility] Platelet countOrdered By: Fadi Guerin on 08-05-2024 Platelets (Bld) [#/Vol] 288 10*3/uL 150-450 [facility] Potassium measurementOrdered By: Lissette Guerin on 08-05-2024 Potassium [Moles/Vol] 3.3 mmol/L Low 3.5-5.1 [facility] Protein Test strip Ql (U)Ord ered By: Lissette Guerin on 08-05-2024 Protein Ql (U) 15 mg/dl High Negative [facility] RBC Auto (Bld) [#/Vol]Ordere d By: Lissette Guerin on 08-05-2024 RBC (Bld) [#/Vol] 4.25 10*6/uL 4.2-5.4 [facility] Respiratory Cultureon 2023 RESPC List Antibiotics [place] t 48 Hours? macrobid List Antibiotics to be Started? none Mixed normal respiratory bill. No Haemophilus, Streptococcus pneumoniae, beta-hemolytic Streptococcus or Staphylococcus aureus isolated. Normal [facility] Comment on above: Performed By: #### M 100.2400, M100.1999 ####[facility] [address] [place], [address] Serum anion gap measurementO rdered By: Lissette Guerin on 08-05-2024 Anion gap [Moles/Vol] 8 mmol/L 5-15 [facility] Serum globulin measurementOr dered By: Lissette Guerin on 08-05-2024 Globulin (S) [Mass/Vol] 3.7 g/dL 2.2-4.2 [facility] Serum or plasma alanine ji otransferase (ALT) measurementOrdered By: Lissette Guerin on 08-05-2024 ALT [Catalytic activity/Vol] 16 U/L 13-56 [facility] Serum or plasma albumin pradip urement (mass/volume)Ordered By: Lissette Guerin on 08-05-2024 Albumin [Mass/Vol] 3.3 g/dL 3.2-5.0 [facility] Serum or plasma alkaline dolly sphatase measurementOrdered By: Lissette Guerin on 08-05-2024 ALP [Catalytic activity/Vol] 60 U/L 45-117 [facility] Serum or plasma calcium pradip urement (mass/volume)Ordered By: Lissette Guerin on 08-05-2024 Calcium [Mass/Vol] 8.5 mg/dL 8.5-10.1 [facility] Serum or plasma creatinine m easurement (mass/volume)Ordered By: Lissette Guerin on 08-05-2024 Creatinine [Mass/Vol] 0.60 mg/dL 0.55-1.02 [facility] Comment on above: The validity of the calculated GFR & GFRAA in patients over 70 years has not been determined. Clinical correlation is essential. Serum or plasma urea nitroge n measurement (mass/volume)Ordered By: Lissette Guerin on 08-05-2024 Urea nitrogen [Mass/Vol] 13 mg/dL 7-18 [facility] Sodium levelOrdered By: Nick anand Apoorva on 08-05-2024 Sodium [Moles/Vol] 138 mmol/L 136-145 [facility] Total proteinOrdered By: Angela neil Apoorva on 08-05-2024 Protein [Mass/Vol] 7.0 g/dL 6.4-8.2 [facility] Troponin IOrdered By: Lissette Guerin on 08-05-2024 Troponin I High Sensitivity 3 pg/mL 3.0-54.0 [facility] Comment on above: Please Note: New Evelyn t Units and Gender Specific Reference Ranges. For more information see Policy Stat Procedure [place] High Sensitivity Troponin (TNIH) and attachments. Urinalysis, Completeon 08-05 Mucus Ql (Urine sed) RARE Normal [facility] Comment on above: Order Comment: CLEAN CATCH Performed By: #### L 400.0001 ####[facility] [address] [place], [address] EPI,SQUAMOUS 0-5 SEEN Normal 5-10 [facility] Comment on above: Order Comment: CLEAN CATCH Performed By: #### L 400.0001 ####[facility] [address] [place], [address] RBC 0-5 SEEN Normal 0-5 [facility] Comment on above: Order Comment: CLEAN CATCH Performed By: #### L 400.0001 ####[facility] [address] [place], [address] BACTERIA 0 SEEN Normal None Seen [facility] Comment on above: Order Comment: CLEAN CATCH Performed By: #### L 400.0001 ####[facility] [address] [place], [address] WBC 0 SEEN Normal 0-5 [facility] Comment on above: Order Comment: CLEAN CATCH Performed By: #### L 400.0001 ####[facility] [address] [place], [address] Urine blood detectionOrdered By: Lissette Guerin on 08-05-2024 Urine Occult Blood 25 /ul High Negative [facility] Urine clarityOrdered By: Angela Guerin on 08-05-2024 Clarity (U) Clear Clear [facility] Urine color determinationOrd ered By: Lissette Guerin on 08-05-2024 Color (U) Yellow Yellow [facility] Urine leukocyte esterase det ection by dipstickOrdered By: Lissette Guerin on 08-05-2024 Leukocyte esterase Test strip Ql (U) Negative Negative [facility] Urine pHOrdered By: Lissette chew on 08-05-2024 pH (U) 6.0 [pH] 5.0 - 8.0 [facility] Urine sediment bacteria coun t by microscopy (number/high power field)Ordered By: Lissette Guerin on 08-05-2024 Bacteria LM.HPF (Urine sed) [#/Area] 0 /[HPF] None Seen [facility] Urine specific gravity measu rementOrdered By: Lissette Guerin on 08-05-2024 Specific gravity (U) [Rel density] 1.015 1.002-1.030 [facility] Urobilinogen Ql (U)Ordered B y: Lissette Guerin on 08-05-2024 Urobilinogen (U) [Mass/Vol] 1 mg/dL High Normal [facility] White blood cell (WBC) count Ordered By: Lissette Guerin on 08-05-2024 WBC (Bld) [#/Vol] 11.8 10*3/uL High 4.4-11.0 [facility] White blood cell countOrdere d By: Lissette Guerin on 08-05-2024 Urine WBC 0 SEEN /hpf 0-5 [facility] Absolute neutrophil countOrd ered By: Neal Dunaway on 08-04-2024 Neutrophils (Bld) [#/Vol] 2.7 10*3/uL 2.0-7.7 [facility] Basic Metabolic Profile (BMP )on 08-04-2024 BUN/CRE 16.0 RATIO Normal 10-20 [facility] Comment on above: Performed By: #### L 100.0100, L500.2500 ####[facility] [address] [place], [address] CA,Total 8.3 mg/dL Low 8.5-10.1 [facility] Comment on above: Performed By: #### L 100.0100, L500.2500 ####[facility] [address] [place], [address] Chloride [Moles/Vol] 112 mmol/L High 98-107 [facility] Comment on above: Performed By: #### L 100.0100, L500.2500 ####[facility] [address] [place], [address] CO2 [Moles/Vol] 23.0 mmol/L Normal 21.0-32.0 [facility] Comment on above: Performed By: #### L 100.0100, L500.2500 ####[facility] [address] [place], [address] Creatinine [Mass/Vol] 0.50 mg/dL Low 0.55-1.02 [facility] Comment on above: Result Comment: The validity of the calculated GFR GFRAA in patients over70 years has not been determined. Clinical correlation isessential. Performed By: #### L 100.0100, L500.2500 ####[facility] [address] [place], [address] ECRCL 130.24 ml/min Normal [facility] Comment on above: Performed By: #### L 100.0100, L500.2500 ####[facility] [address] [place], [address] EST GFR - AA 159 mL/min Normal >60 [facility] Comment on above: Result Comment: Afri can Spanish GFR Calc Performed By: #### L 100.0100, L500.2500 ####[facility] [address] [place], [address] GAP 5 Normal 5-15 [facility] Comment on above: Performed By: #### L 100.0100, L500.2500 ####[facility] [address] [place], [address] GFR/1.73 sq M.predicted among non-blacks MDRD (S/P/Bld) [Vol rate/Area] 132 mL/min/{1.73_m2} Normal >60 [facility] Comment on above: Result Comment: Non- GFR Calc Performed By: #### L 100.0100, L500.2500 ####[facility] [address] [place], [address] Glucose [Mass/Vol] 164 mg/dL High 74-106 [facility] Comment on above: Result Comment: Fast ing Glucose result greater than or equal to 126 mg/dLsuggests DIABETES MELLITUS per A.D.A. criteria. Performed By: #### L 100.0100, L500.2500 ####[facility] [address] [place], [address] Potassium [Moles/Vol] 3.6 mmol/L Normal 3.5-5.1 [facility] Comment on above: Performed By: #### L 100.0100, L500.2500 ####[facility] [address] [place], [address] Sodium [Moles/Vol] 140 mmol/L Normal 136-145 [facility] Comment on above: Performed By: #### L 100.0100, L500.2500 ####[facility] [address] [place], [address] Urea nitrogen [Mass/Vol] 8 mg/dL Normal 7-18 [facility] Comment on above: Performed By: #### L 100.0100, L500.2500 ####[facility] [address] [place], [address] Basophil percentageOrdered B y: Neal Gume on 08-04-2024 Basophils/100 WBC (Bld) 0.3 % 0-1 [facility] Bedside Glucoseon 08-04-2024 FINGERSTICK GLU 157 mg/dL High 74-106 [facility] Comment on above: Result Comment: JAIME GEMENT OF PATIENT CARE PER NURSING PROTOCOL Performed By: #### L 501.080 ####[facility] [address] [facility] [address] FINGERSTICK GLU 151 mg/dL High 74-106 [facility] Comment on above: Result Comment: JAIME GEMENT OF PATIENT CARE PER NURSING PROTOCOL Performed By: #### L 501.080 ####[facility] [address] [facility] [address] FINGERSTICK GLU 207 mg/dL High 74-106 [facility] Comment on above: Result Comment: JAIME GEMENT OF PATIENT CARE PER NURSING PROTOCOL Performed By: #### L 501.080 ####[facility] [address] [place], [address] FINGERSTICK GLU 142 mg/dL High 74-106 [facility] Comment on above: Result Comment: JAIME GEMENT OF PATIENT CARE PER NURSING PROTOCOL Performed By: #### L 501.080 ####[facility] [address] [place], [address] Blood urea nitrogen (BUN)/cr eatinine ratioOrdered By: Neal Dunaway on 08-04-2024 Urea nitrogen/Creatinine [Mass ratio] 16.0 mg/mg 10-20 [facility] CBC W/Diff, Automatedon 07-11 Absolute Lymph 2.71 X10 3/uL Normal 0.83-4.51 [facility] Comment on above: Performed By: #### L 100.0100, L500.2500 ####[facility] [address] [place], [address] Absolute Neut 2.7 X10 3/uL Normal 2.0-7.7 [facility] Comment on above: Performed By: #### L 100.0100, L500.2500 ####[facility] [address] [place], [address] Basophils/100 WBC (Bld) 0.3 % Normal 0-1 [facility] Comment on above: Performed By: #### L 100.0100, L500.2500 ####[facility] [address] [place], [address] Eosinophils/100 WBC (Bld) 5.9 % High 0-5 [facility] Comment on above: Performed By: #### L 100.0100, L500.2500 ####[facility] [address] [place], [address] Erythrocyte distribution width (RBC) [Ratio] 13.2 % Normal 11.6-14.6 [facility] Comment on above: Performed By: #### L 100.0100, L500.2500 ####[facility] [address] [place], [address] Hematocrit (Bld) [Volume fraction] 36.0 % Low 37-47 [facility] Comment on above: Performed By: #### L 100.0100, L500.2500 ####[facility] [address] [place], [address] Hemoglobin (Bld) [Mass/Vol] 12.3 g/dL Normal 12.0-15.0 [facility] Comment on above: Performed By: #### L 100.0100, L500.2500 ####[facility] [address] [place], [address] IG% 0.300 Normal 0.0-0.9 [facility] Comment on above: Result Comment: IG% - Immature Granulocytes (promyelocytes, myelocytes andmetamyelocytes) > 1% indicates that a LEFT SHIFT is Present. Performed By: #### L 100.0100, L500.2500 ####[facility] [address] [place], [address] Lymphocytes/100 WBC (Bld) 43.6 % High 19-41 [facility] Comment on above: Performed By: #### L 100.0100, L500.2500 ####[facility] [address] [place], [address] MCH (RBC) [Entitic mass] 29.3 pg Normal 27.0-32.0 [facility] Comment on above: Performed By: #### L 100.0100, L500.2500 ####[facility] [address] [place], [address] MCHC (RBC) [Mass/Vol] 34.2 g/dL Normal 32-36 [facility] Comment on above: Performed By: #### L 100.0100, L500.2500 ####[facility] [address] [place], [address] MCV (RBC) [Entitic vol] 85.7 fL Normal 81-99 [facility] Comment on above: Performed By: #### L 100.0100, L500.2500 ####[facility] [address] [place], [address] Monocytes/100 WBC (Bld) 6.3 % Normal 0-10 [facility] Comment on above: Performed By: #### L 100.0100, L500.2500 ####[facility] [address] [place], [address] Neutrophils/100 WBC (Bld) 43.6 % Low 47-70 [facility] Comment on above: Performed By: #### L 100.0100, L500.2500 ####[facility] [address] [place], [address] Nucleated RBC (Bld) [#/Vol] 0 10*3/uL Normal 0-5 [facility] Comment on above: Performed By: #### L 100.0100, L500.2500 ####[facility] [address] [place], [address] Platelet mean volume (Bld) [Entitic vol] 10.4 fL Normal 6.2-12.0 [facility] Comment on above: Performed By: #### L 100.0100, L500.2500 ####[facility] [address] [place], [address] Platelets (Bld) [#/Vol] 251 10*3/uL Normal 150-450 [facility] Comment on above: Performed By: #### L 100.0100, L500.2500 ####[facility] [address] [place], [address] RBC (Bld) [#/Vol] 4.20 10*6/uL Normal 4.2-5.4 [facility] Comment on above: Performed By: #### L 100.0100, L500.2500 ####[facility] [address] [place], [address] RDW SD 41.1 fl Normal 35.1-43.9 [facility] Comment on above: Performed By: #### L 100.0100, L500.2500 ####[facility] [address] [place], [address] WBC (Bld) [#/Vol] 6.2 10*3/uL Normal 4.4-11.0 [facility] Comment on above: Performed By: #### L 100.0100, L500.2500 ####[facility] [address] [place], [address] CNPNon 08-04-2024 CNPN Normal [facility] Carbon dioxide measurementOr dered By: Neal Dunaway on 08-04-2024 CO2 [Moles/Vol] 23.0 mmol/L 21.0-32.0 [facility] Chloride measurementOrdered By: Neal Dunaway on 08-04-2024 Chloride [Moles/Vol] 112 mmol/L High 98-107 [facility] Eosinophil percentageOrdered By: Neal Dunaway on 08-04-2024 Eosinophils/100 WBC (Bld) 5.9 % High 0-5 [facility] Erythrocyte distribution wid th ratioOrdered By: Neal Dunaway on 08-04-2024 Erythrocyte distribution width (RBC) [Ratio] 13.2 % 11.6-14.6 [facility] Erythrocyte distribution wid th standard deviationOrdered By: Neal Dunaway on 08-04-2024 Erythrocyte distribution width (RBC) [Entitic vol] 41.1 fL 35.1-43.9 [facility] Estimated glomerular filtrat ion rate (GFR) AmericanOrdered By: Neal Dunaway on 08-04-2024 Estimated GFR (MDRD) Amer 159 mL/min >60 [facility] Comment on above: GFR Calc Estimation of creatinine taryn aranceOrdered By: Neal Dunaway on 08-04-2024 Estimated Creatinine Clearance Calc 130.24 ml/min [facility] Glomerular filtration rate ( GFR) estimationOrdered By: Neal Dunaway on 08-04-2024 Estimated GFR (MDRD) Non-Af Amer 132 mL/min >60 [facility] Comment on above: Non- GFR Calc Glucose measurementOrdered B y: Neal Dunaway on 08-04-2024 Glucose [Mass/Vol] 164 mg/dL High 74-106 [facility] Comment on above: Fasting Glucose resu lt greater than or equal to 126 mg/dL suggests DIABETES MELLITUS per A.D.A. criteria. Hematocrit Auto (Bld) [Volum e fraction]Ordered By: Neal Dunaway on 08-04-2024 Hematocrit (Bld) [Volume fraction] 36.0 % Low 37-47 [facility] [facility] Hem[facility] measurementOrdere d By: Neal Dunaway on 08-04-2024 Hemoglobin (Bld) [Mass/Vol] 12.3 g/dL 12.0-15.0 [facility] Immature granulocytes/100 WB C Auto (Bld)Ordered By: Neal Dunaway on 08-04-2024 Immature granulocytes/100 WBC (Bld) 0.300 % 0.0-0.9 [facility] Comment on above: IG% - Immature Granu locytes (promyelocytes, myelocytes and metamyelocytes) > 1% indicates that a LEFT SHIFT is Present. Lymphocytes Auto (Unsp spec) [#/Vol]Ordered By: Neal Dunaway on 08-04-2024 Lymphocytes (Bld) [#/Vol] 2.71 10*3/uL 0.83-4.51 [facility] Lymphocytes/100 WBC Auto (Un sp spec)Ordered By: Neal Dunaway on 08-04-2024 Lymphocytes/100 WBC (Bld) 43.6 % High 19-41 [facility] MCV (mean corpuscular volume ) determinationOrdered By: Neal Dunaway on 08-04-2024 MCV (RBC) [Entitic vol] 85.7 fL 81-99 [facility] Mean corpuscular hemoglobin (MCH) determinationOrdered By: Neal Dunaway on 08-04-2024 MCH (RBC) [Entitic mass] 29.3 pg 27.0-32.0 [facility] Mean corpuscular hemoglobin concentration (MCHC) determinationOrdered By: Neal Dunaway on 08-04-2024 MCHC (RBC) [Mass/Vol] 34.2 g/dL 32-36 [facility] Mean platelet volume determi nationOrdered By: Neal Dunaway on 08-04-2024 Platelet mean volume (Bld) [Entitic vol] 10.4 fL 6.2-12.0 [facility] Monocyte percentageOrdered B y: Neal Dunaway on 08-04-2024 Monocytes/100 WBC (Bld) 6.3 % 0-10 [facility] Neutrophil percentageOrdered By: Neal Dunaway on 08-04-2024 Neutrophils/100 WBC (Bld) 43.6 % Low 47-70 [facility] Nucleated red blood cell per centageOrdered By: Neal Dunaawy on 08-04-2024 Nucleated RBC/100 WBC (Bld) [Ratio] 0 % 0-5 [facility] Platelet countOrdered By: Kaylynn Dunaway on 08-04-2024 Platelets (Bld) [#/Vol] 251 10*3/uL 150-450 [facility] Potassium measurementOrdered By: Neal Dunaway on 08-04-2024 Potassium [Moles/Vol] 3.6 mmol/L 3.5-5.1 [facility] RBC Auto (Bld) [#/Vol]Ordere d By: Neal Dunaway on 08-04-2024 RBC (Bld) [#/Vol] 4.20 10*6/uL 4.2-5.4 [facility] Serum anion gap measurementO rdered By: Neal Dunaway on 08-04-2024 Anion gap [Moles/Vol] 5 mmol/L 5-15 [facility] Serum or plasma calcium pradip urement (mass/volume)Ordered By: Neal Dunaway on 08-04-2024 Calcium [Mass/Vol] 8.3 mg/dL Low 8.5-10.1 [facility] Serum or plasma creatinine m easurement (mass/volume)Ordered By: Neal Dunaway on 08-04-2024 Creatinine [Mass/Vol] 0.50 mg/dL Low 0.55-1.02 [facility] Comment on above: The validity of the calculated GFR & GFRAA in patients over 70 years has not been determined. Clinical correlation is essential. Serum or plasma urea nitroge n measurement (mass/volume)Ordered By: Neal Dunaway on 08-04-2024 Urea nitrogen [Mass/Vol] 8 mg/dL 7-18 [facility] Sodium levelOrdered By: Parvez Dunaway on 08-04-2024 Sodium [Moles/Vol] 140 mmol/L 136-145 [facility] White blood cell (WBC) count Ordered By: Neal Dunaway on 08-04-2024 WBC (Bld) [#/Vol] 6.2 10*3/uL 4.4-11.0 [facility] Basic Metabolic Profile (BMP )on 08-03-2024 BUN/CRE 23.6 RATIO High 10-20 [facility] Comment on above: Performed By: #### L 500.2500, L100.0100 ####[facility] [address] [place], [address] CA,Total 8.2 mg/dL Low 8.5-10.1 [facility] Comment on above: Performed By: #### L 500.2500, L100.0100 ####[facility] [address] [place], [address] Chloride [Moles/Vol] 112 mmol/L High 98-107 [facility] Comment on above: Performed By: #### L 500.2500, L100.0100 ####[facility] [address] [place], [address] CO2 [Moles/Vol] 24.0 mmol/L Normal 21.0-32.0 [facility] Comment on above: Performed By: #### L 500.2500, L100.0100 ####[facility] [address] [place], [address] Creatinine [Mass/Vol] 0.59 mg/dL Normal 0.55-1.02 [facility] Comment on above: Result Comment: The validity of the calculated GFR GFRAA in patients over70 years has not been determined. Clinical correlation isessential. Performed By: #### L 500.2500, L100.0100 ####[facility] [address] [place], [address] ECRCL 110.31 ml/min Normal [facility] Comment on above: Performed By: #### L 500.2500, L100.0100 ####[facility] [address] [place], [address] EST GFR - AA 131 mL/min Normal >60 [facility] Comment on above: Result Comment: Afri can Spanish GFR Calc Performed By: #### L 500.2500, L100.0100 ####[facility] [address] [place], [address] GAP 5 Normal 5-15 [facility] Comment on above: Performed By: #### L 500.2500, L100.0100 ####[facility] [address] [place], [address] GFR/1.73 sq M.predicted among non-blacks MDRD (S/P/Bld) [Vol rate/Area] 109 mL/min/{1.73_m2} Normal >60 [facility] Comment on above: Result Comment: Non- GFR Calc Performed By: #### L 500.2500, L100.0100 ####[facility] [address] [place], [address] Glucose [Mass/Vol] 168 mg/dL High 74-106 [facility] Comment on above: Result Comment: Fast ing Glucose result greater than or equal to 126 mg/dLsuggests DIABETES MELLITUS per A.D.A. criteria. Performed By: #### L 500.2500, L100.0100 ####[facility] [address] [place], [address] Potassium [Moles/Vol] 3.4 mmol/L Low 3.5-5.1 [facility] Comment on above: Performed By: #### L 500.2500, L100.0100 ####[facility] [address] [place], [address] Sodium [Moles/Vol] 141 mmol/L Normal 136-145 [facility] Comment on above: Performed By: #### L 500.2500, L100.0100 ####[facility] [address] [place], [address] Urea nitrogen [Mass/Vol] 14 mg/dL Normal 7-18 [facility] Comment on above: Performed By: #### L 500.2500, L100.0100 ####[facility] [address] [place], [address] Bedside Glucoseon 08-03-2024 FINGERSTICK GLU 202 mg/dL High 74-106 [facility] Comment on above: Result Comment: JAIME GEMENT OF PATIENT CARE PER NURSING PROTOCOL Performed By: #### L 501.080 ####[facility] [address] [place], [address] FINGERSTICK GLU 190 mg/dL High 74-106 [facility] Comment on above: Result Comment: JAIME GEMENT OF PATIENT CARE PER NURSING PROTOCOL Performed By: #### L 501.080 ####[facility] [address] [place], [address] FINGERSTICK GLU 283 mg/dL High 74-106 [facility] Comment on above: Result Comment: JAIME GEMENT OF PATIENT CARE PER NURSING PROTOCOL Performed By: #### L 501.080 ####[facility] [address] [place], [address] FINGERSTICK GLU 152 mg/dL High 74-106 [facility] Comment on above: Result Comment: JAIME GEMENT OF PATIENT CARE PER NURSING PROTOCOL Performed By: #### L 501.080 ####[facility] [address] [place], [address] CBC W/Diff, Automatedon 11-2 Absolute Lymph 2.40 X10 3/uL Normal 0.83-4.51 [facility] Comment on above: Performed By: #### L 500.2500, L100.0100 ####[facility] [address] [place], [address] Absolute Neut 3.4 X10 3/uL Normal 2.0-7.7 [facility] Comment on above: Performed By: #### L 500.2500, L100.0100 ####[facility] [address] [place], [address] Basophils/100 WBC (Bld) 0.2 % Normal 0-1 [facility] Comment on above: Performed By: #### L 500.2500, L100.0100 ####[facility] [address] [place], [address] Eosinophils/100 WBC (Bld) 3.4 % Normal 0-5 [facility] Comment on above: Performed By: #### L 500.2500, L100.0100 ####[facility] [address] [place], [address] Erythrocyte distribution width (RBC) [Ratio] 13.5 % Normal 11.6-14.6 [facility] Comment on above: Performed By: #### L 500.2500, L100.0100 ####[facility] [address] [place], [address] Hematocrit (Bld) [Volume fraction] 36.3 % Low 37-47 [facility] Comment on above: Performed By: #### L 500.2500, L100.0100 ####[facility] [address] [place], [address] Hemoglobin (Bld) [Mass/Vol] 12.4 g/dL Normal 12.0-15.0 [facility] Comment on above: Performed By: #### L 500.2500, L100.0100 ####[facility] [address] [place], [address] IG% 0.500 Normal 0.0-0.9 [facility] Comment on above: Result Comment: IG% - Immature Granulocytes (promyelocytes, myelocytes andmetamyelocytes) > 1% indicates that a LEFT SHIFT is Present. Performed By: #### L 500.2500, L100.0100 ####[facility] [address] [place], [address] Lymphocytes/100 WBC (Bld) 36.8 % Normal 19-41 [facility] Comment on above: Performed By: #### L 500.2500, L100.0100 ####[facility] [address] [place], [address] MCH (RBC) [Entitic mass] 29.5 pg Normal 27.0-32.0 [facility] Comment on above: Performed By: #### L 500.2500, L100.0100 ####[facility] [address] [place], [address] MCHC (RBC) [Mass/Vol] 34.2 g/dL Normal 32-36 [facility] Comment on above: Performed By: #### L 500.2500, L100.0100 ####[facility] [address] [place], [address] MCV (RBC) [Entitic vol] 86.2 fL Normal 81-99 [facility] Comment on above: Performed By: #### L 500.2500, L100.0100 ####[facility] [address] [place], [address] Monocytes/100 WBC (Bld) 6.7 % Normal 0-10 [facility] Comment on above: Performed By: #### L 500.2500, L100.0100 ####[facility] [address] [place], [address] Neutrophils/100 WBC (Bld) 52.4 % Normal 47-70 [facility] Comment on above: Performed By: #### L 500.2500, L100.0100 ####[facility] [address] [place], [address] Nucleated RBC (Bld) [#/Vol] 0 10*3/uL Normal 0-5 [facility] Comment on above: Performed By: #### L 500.2500, L100.0100 ####[facility] [address] [place], [address] Platelet mean volume (Bld) [Entitic vol] 10.0 fL Normal 6.2-12.0 [facility] Comment on above: Performed By: #### L 500.2500, L100.0100 ####[facility] [address] [place], [address] Platelets (Bld) [#/Vol] 221 10*3/uL Normal 150-450 [facility] Comment on above: Performed By: #### L 500.2500, L100.0100 ####[facility] [address] [place], [address] RBC (Bld) [#/Vol] 4.21 10*6/uL Normal 4.2-5.4 [facility] Comment on above: Performed By: #### L 500.2500, L100.0100 ####[facility] [address] [place], [address] RDW SD 41.8 fl Normal 35.1-43.9 [facility] Comment on above: Performed By: #### L 500.2500, L100.0100 ####[facility] [address] [place], [address] WBC (Bld) [#/Vol] 6.5 10*3/uL Normal 4.4-11.0 [facility] Comment on above: Performed By: #### L 500.2500, L100.0100 ####[facility] [address] [place], [address] CNPNon 08-03-2024 CNPN Normal [facility] Gram Stainon 08-03-2024 GS List Antibiotics Las t 48 Hours? macrobid List Antibiotics to be Started? none Acceptable Specimen? Yes (<25 Epithelial cells per/lpf) Gram Stain 2+ White Blood Cells 2+ Epithelial cells 2+ Gram positive cocci 2+ Gram negative rods 1+ Gram positive rods Normal [facility] Comment on above: Performed By: #### M 100.2400, M100.2000 ####[facility] [address] [place], [address] Urine Cultureon 08-03-2024 URC Culture exhibits no growth. Normal [facility] Comment on above: Performed By: #### M 100.2200 ####[facility] [address] [place], [address] 12 Lead EKGon 08-02-2024 12 Lead EKG Normal [facility] Base excess Calc (BldV) [Mol es/Vol]Ordered By: Marcelo Madrigal on 08-02-2024 Venous Blood Base Excess -5 mmol/L Low -1.0-3.5 [facility] Basic Metabolic Profile (BMP )on 08-02-2024 BUN/CRE 19.4 RATIO Normal 10-20 [facility] Comment on above: Performed By: #### L 500.2500, L100.0100 ####[facility] [address] [place], [address] CA,Total 9.1 mg/dL Normal 8.5-10.1 [facility] Comment on above: Performed By: #### L 500.2500, L100.0100 ####[facility] [address] [place], [address] Chloride [Moles/Vol] 103 mmol/L Normal 98-107 [facility] Comment on above: Performed By: #### L 500.2500, L100.0100 ####[facility] [address] [place], [address] CO2 [Moles/Vol] 21.0 mmol/L Normal 21.0-32.0 [facility] Comment on above: Performed By: #### L 500.2500, L100.0100 ####[facility] [address] [place], [address] Creatinine [Mass/Vol] 1.34 mg/dL High 0.55-1.02 [facility] Comment on above: Result Comment: The validity of the calculated GFR GFRAA in patients over70 years has not been determined. Clinical correlation isessential. Performed By: #### L 500.2500, L100.0100 ####[facility] [address] [place], [address] ECRCL 47.55 ml/min Normal [facility] Comment on above: Performed By: #### L 500.2500, L100.0100 ####[facility] [address] [place], [address] EST GFR - AA 51 mL/min Low >60 [facility] Comment on above: Result Comment: Afri can Spanish GFR Calc Performed By: #### L 500.2500, L100.0100 ####[facility] [address] [place], [address] GAP 11 Normal 5-15 [facility] Comment on above: Performed By: #### L 500.2500, L100.0100 ####[facility] [address] [place], [address] GFR/1.73 sq M.predicted among non-blacks MDRD (S/P/Bld) [Vol rate/Area] 42 mL/min/{1.73_m2} Low >60 [facility] Comment on above: Result Comment: Non- GFR Calc Performed By: #### L 500.2500, L100.0100 ####[facility] [address] [place], [address] Glucose [Mass/Vol] 207 mg/dL High 74-106 [facility] Comment on above: Result Comment: Gluc ose result greater than or equal to 200 mg/dLsuggests DIABETES MELLITUS per A.D.A. criteria. Performed By: #### L 500.2500, L100.0100 ####[facility] [address] [place], [address] Potassium [Moles/Vol] 3.8 mmol/L Normal 3.5-5.1 [facility] Comment on above: Performed By: #### L 500.2500, L100.0100 ####[facility] [address] [place], [address] Sodium [Moles/Vol] 135 mmol/L Low 136-145 [facility] Comment on above: Performed By: #### L 500.2500, L100.0100 ####[facility] [address] [place], [address] Urea nitrogen [Mass/Vol] 26 mg/dL High 7-18 [facility] Comment on above: Performed By: #### L 500.2500, L100.0100 ####[facility] [address] [place], [address] Bedside Glucoseon 08-02-2024 FINGERSTICK GLU 186 mg/dL High 74-106 [facility] Comment on above: Result Comment: JAIME GEMENT OF PATIENT CARE PER NURSING PROTOCOL Performed By: #### L 501.080 ####[facility] [address] [place], [address] FINGERSTICK GLU 170 mg/dL High 74-106 [facility] Comment on above: Result Comment: JAIME GEMENT OF PATIENT CARE PER NURSING PROTOCOL Performed By: #### L 501.080 ####[facility] [address] [place], [address] Bilirubin Test strip Ql (U)O rdered By: Marcelo Madrigal on 08-02-2024 Bilirubin Ql (U) Negative Negative [facility] Blood cultureOrdered By: Marcelo Madrigal on 08-02-2024 Bacteria identified Cx Nom (Bld) No growth in 5 days. [facility] Bacteria identified Cx Nom (Bld) No growth in 5 days. [facility] C. difficile DNA NICOLE+probe Q l (Unsp spec)Ordered By: Thalia Hernandez on 08-02-2024 Clostridioides difficile (PCR) [facility] CBC W/Diff, Automatedon 07-11 Absolute Lymph 0.96 X10 3/uL Normal 0.83-4.51 [facility] Comment on above: Performed By: #### L 500.2500, L100.0100 ####[facility] [address] [place], [address] Absolute Neut 18.7 X10 3/uL High 2.0-7.7 [facility] Comment on above: Performed By: #### L 500.2500, L100.0100 ####[facility] [address] [place], [address] Basophils/100 WBC (Bld) 0.2 % Normal 0-1 [facility] Comment on above: Performed By: #### L 500.2500, L100.0100 ####[facility] [address] [place], [address] Eosinophils/100 WBC (Bld) 0.3 % Normal 0-5 [facility] Comment on above: Performed By: #### L 500.2500, L100.0100 ####[facility] [address] [place], [address] Erythrocyte distribution width (RBC) [Ratio] 13.2 % Normal 11.6-14.6 [facility] Comment on above: Performed By: #### L 500.2500, L100.0100 ####[facility] [address] [place], [address] Hematocrit (Bld) [Volume fraction] 43.8 % Normal 37-47 [facility] Comment on above: Performed By: #### L 500.2500, L100.0100 ####[facility] [address] [place], [address] Hemoglobin (Bld) [Mass/Vol] 15.3 g/dL High 12.0-15.0 [facility] Comment on above: Performed By: #### L 500.2500, L100.0100 ####[facility] [address] [place], [address] IG% 0.700 Normal 0.0-0.9 [facility] Comment on above: Result Comment: IG% - Immature Granulocytes (promyelocytes, myelocytes andmetamyelocytes) > 1% indicates that a LEFT SHIFT is Present. Performed By: #### L 500.2500, L100.0100 ####[facility] [address] [place], [address] Lymphocytes/100 WBC (Bld) 4.6 % Low 19-41 [facility] Comment on above: Performed By: #### L 500.2500, L100.0100 ####[facility] [address] [place], [address] MCH (RBC) [Entitic mass] 29.5 pg Normal 27.0-32.0 [facility] Comment on above: Performed By: #### L 500.2500, L100.0100 ####[facility] [address] [place], [address] MCHC (RBC) [Mass/Vol] 34.9 g/dL Normal 32-36 [facility] Comment on above: Performed By: #### L 500.2500, L100.0100 ####[facility] [address] [place], [address] MCV (RBC) [Entitic vol] 84.4 fL Normal 81-99 [facility] Comment on above: Performed By: #### L 500.2500, L100.0100 ####[facility] [address] [place], [address] Monocytes/100 WBC (Bld) 3.9 % Normal 0-10 [facility] Comment on above: Performed By: #### L 500.2500, L100.0100 ####[facility] [address] [place], [address] Neutrophils/100 WBC (Bld) 90.3 % High 47-70 [facility] Comment on above: Performed By: #### L 500.2500, L100.0100 ####[facility] [address] [place], [address] Nucleated RBC (Bld) [#/Vol] 0 10*3/uL Normal 0-5 [facility] Comment on above: Performed By: #### L 500.2500, L100.0100 ####[facility] [address] [place], [address] Platelet mean volume (Bld) [Entitic vol] 9.9 fL Normal 6.2-12.0 [facility] Comment on above: Performed By: #### L 500.2500, L100.0100 ####[facility] [address] [place], [address] Platelets (Bld) [#/Vol] 296 10*3/uL Normal 150-450 [facility] Comment on above: Performed By: #### L 500.2500, L100.0100 ####[facility] [address] [place], [address] RBC (Bld) [#/Vol] 5.19 10*6/uL Normal 4.2-5.4 [facility] Comment on above: Performed By: #### L 500.2500, L100.0100 ####[facility] [address] [place], [address] RDW SD 40.8 fl Normal 35.1-43.9 [facility] Comment on above: Performed By: #### L 500.2500, L100.0100 ####[facility] [address] [place], [address] WBC (Bld) [#/Vol] 20.7 10*3/uL High 4.4-11.0 [facility] Comment on above: Performed By: #### L 500.2500, L100.0100 ####[facility] [address] [place], [address] CDIFF (PCR)on 08-02-2024 CDIFF Is the patient recei ving laxatives? N New/unexplained onset of 3 or more stools in past 24 hrs? Y Pending 027 027 NAP1-B1 Presumptive Negative *for epidemiolologic???use C. Diff PCR Negative- No toxigenic C. Diff Detected Normal [facility] Comment on above: Performed By: #### M 1006796, M100.637 ####[facility] [address] [place], [place], [address] CO2 (BldV) [Moles/Vol]Ordere d By: Marcelo Madrigal on 08-02-2024 CO2 [Moles/Vol] 23 mmol/L 23-33 [facility] CO2 (BldV) [Partial pressure ]Ordered By: Marcelo Madrigal on 08-02-2024 Bed Mix Venous Bld PCO2 at Pat Temp 40.1 mmHg Low 41-51 [facility] Chest 1 View (Portable)on Chest 1 View (Portable) Normal [facility] ENTERIC PATHOGEN PANEL STOOL on 08-02-2024 EP PANEL Normal [facility] Comment on above: Performed By: #### M 1006796, M100.637 ####[facility] [address] [place], [place], [address] Emergency Department Summary on 08-02-2024 Emergency Department Summary Normal [facility] Epithelial cells.squamous LM Ql (Urine sed)Ordered By: Marcelo Madrigal on 08-02-2024 Epithelial cells.squamous LM.HPF (Urine sed) [#/Area] 5 /[HPF] 5-10 [facility] Glucose Ql (U)Ordered By: Ug o Madrigal on 08-02-2024 Urine Glucose (UA) Normal mg/dl Normal [facility] Gram stainOrdered By: Thalia Hernandez on 08-02-2024 Microscopic observation Gram stain Nom (Unsp spec) [facility] H AND P Exam - Hospitaliston 08-02-2024 H&P Exam - Hospitalist Normal [facility] Influenza virus A and B and SARS-CoV-2 (COVID-19) and Respiratory syncytial virus RNAOrdered By: Marcelo Madrigal on 08-02-2024 SARS-CoV-2 (COVID-19) RNA NICOLE+probe Ql (Unsp spec) [facility] Ketones Test strip Ql (U)Ord ered By: Marcelo Madrigal on 08-02-2024 Ketones Ql (U) Negative Negative [facility] Lactic Acidon 08-02-2024 Lactate [Moles/Vol] 1.7 mmol/L Normal 0.4-1.9 [facility] Comment on above: Performed By: #### L 503.6005 ####[facility] [address] [place], [place], [address] Lactate [Moles/Vol] 3.3 mmol/L Invalid Interpretation Code 0.4-1.9 [facility] Comment on above: Order Comment: Y Result Comment: Crit ical Result(s) Called at: 07:24:48 08/02/2024 by: Angeline Munoz RN (ER). Results read back by same. Performed By: #### L 503.6005 ####[facility] [address] [place], [place], [address] Lactic acid measurementOrder ed By: Marcelo Madrigal on 08-02-2024 Lactate [Moles/Vol] 1.7 mmol/L 0.4-2.0 [facility] M100.678on 08-02-2024 M100.678 Pending SARS-CoV-2 (COVID 19) Negative INFLUENZA A Negative INFLUENZA B Negative RSV PCR Negative Normal [facility] Comment on above: Performed By: #### M 100.678 ####[facility] [address] [place], [place], [address] Microorganism identified Cx Nom (Unsp spec)Ordered By: Thalia Hernandez on 08-02-2024 Respiratory Culture [facility] Microscopic analysis of urin e for red blood cells (RBC)Ordered By: Marcelo Madrigal on 08-02-2024 Urine RBC 0 SEEN /hpf 0-5 [facility] Mucus LM Ql (Urine sed)Order ed By: Marcelo Madrigal on 08-02-2024 Mucus Ql (Urine sed) 0 SEEN /hpf [facility] Nitrite Test strip Ql (U)Ord ered By: Marcelo Madrigal on 08-02-2024 Nitrite Ql (U) Negative Negative [facility] No Panel InformationOrdered By: Marcelo Madrigal on 08-02-2024 Blood Gas Sample Site Not entered [facility] Blood Gas Specimen Type NICOLE [facility] Oxygen Delivery Device Not entered W [facility] Oxygen (BldV) [Partial press ure]Ordered By: Marcelo Madrigal on 08-02-2024 Venous Blood Partial Pressure O2 41 mmHg High 25-40 [facility] Protein Test strip Ql (U)Ord ered By: Marcelo Madrigal on 08-02-2024 Protein Ql (U) 15 mg/dl High Negative [facility] RESPIRATORY PANEL MOLECULARo n 08-02-2024 RP PANEL Normal [facility] Comment on above: Performed By: #### M 100.638 ####[facility] [address] [place], [place], [address] Respiratory pathogens DNA an d RNA panel NICOLE+probe (Resp)Ordered By: Thalia Hernandez on 08-02-2024 Respiratory Panel (PCR) [facility] Stool enteric pathogen panel by probe and target amplification methodOrdered By: Thalia Hernandez on 08-02-2024 Enteric Bacteriology [facility] Urinalysis, Completeon 08-02 EPI,SQUAMOUS 5-10 SEEN Normal 5-10 [facility] Comment on above: Order Comment: CLEAN CATCH Performed By: #### L 400.0001 ####[facility] [address] [facility] [place], [place], [address] WBC 5-10 SEEN Normal 0-5 [facility] Comment on above: Order Comment: CLEAN CATCH Performed By: #### L 400.0001 ####[facility] [address] [place], [address] BACTERIA 0 SEEN Normal None Seen [facility] Comment on above: Order Comment: CLEAN CATCH Performed By: #### L 400.0001 ####[facility] [address] [place], [address] Mucus Ql (Urine sed) 0 SEEN Normal [facility] Comment on above: Order Comment: CLEAN CATCH Performed By: #### L 400.0001 ####[facility] [address] [place], [address] RBC 0 SEEN Normal 0-5 [facility] Comment on above: Order Comment: CLEAN CATCH Performed By: #### L 400.0001 ####[facility] [address] [place], [address] Urine blood detectionOrdered By: Marcelo Madrigal on 08-02-2024 Urine Occult Blood Negative Negative [facility] Urine clarityOrdered By: Marcelo Madrigal on 08-02-2024 Clarity (U) Clear Clear [facility] Urine color determinationOrd ered By: Marcelo Madrigal on 08-02-2024 Color (U) Yellow Yellow [facility] Urine cultureOrdered By: Angela Guerin on 08-02-2024 Bacteria identified Cx Nom (U) Culture exhibits no growth. [facility] Urine leukocyte esterase det ection by dipstickOrdered By: Marcelo Madrigal on 08-02-2024 Leukocyte esterase Test strip Ql (U) 500 /ul High Negative [facility] Urine pHOrdered By: Marcelo silver on 08-02-2024 pH (U) 6.0 [pH] 5.0 - 8.0 [facility] Urine sediment bacteria coun t by microscopy (number/high power field)Ordered By: Marcelo Madrigal on 08-02-2024 Bacteria LM.HPF (Urine sed) [#/Area] 0 /[HPF] None Seen [facility] Urine specific gravity measu rementOrdered By: Marcelo Madrigal on 08-02-2024 Specific gravity (U) [Rel density] 1.015 1.002-1.030 [facility] Urobilinogen Ql (U)Ordered B y: Marcelo Madrigal on 08-02-2024 Urine Urobilinogen Normal mg/dl Normal [facility] Venous Blood Gason Blood Gas Type NICOLE Normal [facility] Comment on above: Performed By: #### L 9000.0810 ####[facility] [address] [place], [address] CO2 [Moles/Vol] 23 mmol/L Normal 23-33 [facility] Comment on above: Performed By: #### L 9000.0810 ####[facility] [address] [place], [address] HCO3 (Bld) [Moles/Vol] 21 mmol/L Low 22-26 [facility] Comment on above: Performed By: #### L 9000.0810 ####[facility] [address] [place], [address] O2 Delivery Dev Not entered Normal [facility] Comment on above: Performed By: #### L 9000.0810 ####[facility] [address] [place], [address] SITE Not entered Normal [facility] Comment on above: Performed By: #### L 9000.0810 ####[facility] [address] [place], [address] VBG BE -5 mmol/L Low -1.0-3.5 [facility] Comment on above: Performed By: #### L 9000.0810 ####[facility] [address] [place], [address] VBG pCO2 40.1 mmHg Low 41-51 [facility] Comment on above: Performed By: #### L 9000.0810 ####[facility] [address] [place], [address] VBG pH 7.34 Normal 7.32-7.42 [facility] Comment on above: Performed By: #### L 9000.0810 ####[facility] [address] [place], [place], [address] VBG PO2 41 mmHg High 25-40 [facility] Comment on above: Performed By: #### L 9000.0810 ####[facility] [address] [place], [place], [address] VBG SO2 73 High 50-70 [facility] Comment on above: Performed By: #### L 9000.0810 ####[facility] [address] [place], [place], [address] Venous blood bicarbonate ruchi surementOrdered By: Marcelo Madrigal on 08-02-2024 HCO3 (Bld) [Moles/Vol] 21 mmol/L Low 22-26 [facility] Venous blood oxygen saturati on measurementOrdered By: Marcelo Madrigal on 08-02-2024 Oxygen saturation in Blood 73 % High 50-70 [facility] White blood cell countOrdere d By: Marcelo Madrigal on 08-02-2024 Urine WBC 5-10 SEEN /hpf 0-5 [facility] pH (BldV)Ordered By: Marcelo Gal lo on 08-02-2024 Venous Blood pH 7.34 7.32-7.42 [facility] Bacteria Ur Culton Bacteria identified Cx Nom (U) Normal [facility] Comment on above: Performed By: #### 6 30-4 ####[facility] LABCLIA [id number] [facility] [id number] [place] [address] [place] CNOVon 08-01-2024 CNOV Normal [facility] UA DIP, URINE (POC)on 2023 BILIRUBIN UA (POCT) Negative Negative [facility] CLARITY UA (POCT) Clear [facility] COLOR UA (POCT) Yellow [facility] GLUCOSE UA (POCT) Negative Negative mg/dL [facility] Hemoglobin Ql (U) Negative Negative [facility] KETONE UA (POCT) Trace Negative mg/dL [facility] LEUKOCYTES UA (POCT) Negative [facility]ITR[facility] (POCT) Negative Negative [facility] PH UA (POCT) 5.5 4.5 - 8.0 [facility] Protein Ql (U) Negative Negative mg/dL [facility] SPECIFIC GRAVITY UA (POCT) 1.020 1.005 - 1.030 [facility] UROBILINOGEN UA (POCT) 0.2 Leonie l E.U./dL [facility] Location:[facility], [address] [place] [address], [place], [place], [address] [place] [address] POINT OF CARE [facility] CNOVon 07-29-2024 CNOV Normal [facility] CNPNon 07-29-2024 CNPN Normal [facility] Methylmalonate SerPl-sCncon 07-29-2024 Methylmalonate [Moles/Vol] 0.13 umol/L Normal <=0.40 [facility] Comment on above: Order Comment: Speci men Type: BLOOD SPECIMENOrdering Facility: [facility] Address: [address] [place] [address] Result Comment: This test was developed, and its performance characteristics determined by the [facility] Department of Pathology and Laboratory Medicine. It has not been cleared or approved by the FDA. The [facility] Department of Pathology and Laboratory Medicine is regulated under CLIA as qualified to perform high-complexity testing. This test is used for clinical purposes. It should not be regarded as investigational or for research. Performed By: #### 1 3964-2 ####[facility] LABCLIA [id number] [facility] [id number] [place] [address] [place] PROTEIN ELECTROPHORESIS SERU M WITH ODELL (P)on 07-29-2024 Albumin [Mass/Vol] 4.34 g/dL Normal 3.43-5.41 [facility] Comment on above: Order Comment: Speci men Type: BLOOD SPECIMENOrdering Facility: [facility] Address: [address] [place] [address] Performed By: #### L [id number] ####[facility] LABCLIA [id number] [place] [address] [place] Alpha 1 globulin Elph [Mass/Vol] 0.37 g/dL Normal 0.18-0.43 [facility] Comment on above: Order Comment: Speci men Type: BLOOD SPECIMENOrdering Facility: [facility] Address: [address] [place] [address] Performed By: #### L [id number] ####[facility] [id number] [place] [address] [place] Alpha 2 globulin Elph [Mass/Vol] 0.71 g/dL Normal 0.42-0.98 [facility] Comment on above: Order Comment: Speci men Type: BLOOD SPECIMENOrdering Facility: [facility] Address: [address] [place] [address] Performed By: #### L [id number] ####[facility] [id number] [place] [address] [place] Beta globulin Elph [Mass/Vol] 1.17 g/dL Normal 0.61-1.17 [facility] Comment on above: Order Comment: Speci men Type: BLOOD SPECIMENOrdering Facility: [facility] Address: [address] [place] [address] Performed By: #### L [id number] ####[facility] [id number] [place] [address] [place] COMMENT (SERUM PROT ELECTRO) Monoclonal Protein analysis (immunofixation) is not indicated. Normal [facility] Comment on above: Order Comment: Speci men Type: BLOOD SPECIMENOrdering Facility: [facility] Address: [address] [place] [address] Performed By: #### L [id number] ####[facility] [id number] [place] [address] [place] Gamma globulin Elph [Mass/Vol] 0.61 g/dL Normal 0.53-1.51 [facility] Comment on above: Order Comment: Speci men Type: BLOOD SPECIMENOrdering Facility: [facility] Address: [address] [place] [address] Performed By: #### L [id number] ####[facility] LABCLIA [id number] [place] [address] [place] M-PROTEIN LOCATION Normal [facility] Comment on above: Order Comment: Speci men Type: BLOOD SPECIMENOrdering Facility: [facility] Address: [address] [place] [address] Result Comment: Not Applicable. Performed By: #### L [id number] ####[facility] LABCLIA [id number] [place] [address] [place] Protein Fractions [Interp] No definitive M protein is identified on protein electrophoresis. Normal No definitive M protein is identified on protein electrophore sis. [facility] Comment on above: Order Comment: Speci men Type: BLOOD SPECIMENOrdering Facility: [facility] Address: [address] [place] [address] Performed By: #### L [id number] ####[facility] LABCLIA [id number] [place] [address] [place] Protein.monoclonal Elph [Mass/Vol] 0.00 g/dL Normal <=0.00 [facility] Comment on above: Order Comment: Speci men Type: BLOOD SPECIMENOrdering Facility: [facility] Address: [address] [place] [address] Performed By: #### L [id number] ####[facility] LABCLIA [id number] [place] [address] [place] SPE STAFF REVIEW Reviewed by Madonna Flores MD Normal [facility] Comment on above: Order Comment: Speci men Type: BLOOD SPECIMENOrdering Facility: [facility] Address: [address] [place] [address] Performed By: #### L [id number] ####[facility] LABCLIA [id number] [address] [address] [place] Prot SerPl-mCncon 07-29-2024 Protein [Mass/Vol] 7.2 g/dL Normal 6.3-8.0 [facility] Comment on above: Order Comment: Speci men Type: BLOOD SPECIMENOrdering Facility: [facility] Address: [address] [place] [address] Performed By: #### 2 132-9, 3016-3, 2885-2 ####[facility] LABCLIA [id number] [place] [address] [place] TSH SerPl-aCncon 07-29-2024 TSH Qn 1.370 m[IU]/L Normal 0.270-4.200 [facility] Comment on above: Order Comment: Speci men Type: BLOOD SPECIMENOrdering Facility: [facility] Address: [address] [place] [address] Performed By: #### 2 132-9, 3016-3, 2885-2 ####[facility] LABIA [id number] [place] [address] [place] Vit B12 [facility] [place]24 Cobalamin (Vitamin B12) [Mass/Vol] 463 pg/mL Normal 232-1245 [facility] Comment on above: Order Comment: Speci men Type: BLOOD SPECIMENOrdering Facility: [facility] Address: [address] [place] [address] Performed By: #### 2 132-9, 3016-3, 2885-2 ####[facility] LABIA [id number] [place] [id number] [place] CNPTOUTREACHon 07-22-2024 CNPTOUTREACH Normal [facility] L/S Spine Min 4 Viewson L/S Spine Min 4 Views Normal [facility] Orthopedic Visit Reporton Orthopedic Visit Report Normal [facility] CNPNon 07-07-2024 CNPN Normal [facility] CNPTOUTREACHon 07-03-2024 CNPTOUTREACH Normal [facility] AAA Screeningon 07-02-2024 AAA Screening Normal [facility] Carotid Duplex Ultrasoundon 07-02-2024 Carotid Duplex Ultrasound Normal [facility] CNPNon 06-29-2024 CNPN Normal [facility] CT CHEST WO IVCONon 06-23-20 CT CHEST WO IVCON Normal [facility] ALBUMIN/CREATININE RATIO, UR INEon 06-22-2024 Albumin DL <= 20 mg/L (U) [Mass/Vol] mg/dL Normal [facility] Comment on above: Order Comment: Speci men Type: URINE SPECIMENOrdering Facility: [facility] Address: [address] [place] [address] Performed By: #### U ACR ####[facility] LABCLIA [id number] [place] [address] [place] Albumin/Creatinine (U) [Mass ratio] <12 Normal <30 [facility] Comment on above: Order Comment: Speci men Type: URINE SPECIMENOrdering Facility: [facility] Address: [address] [place] [address] Result Comment: Adul t Male and Female Nephrotic Criteria:<30 mg/g is considered normal to mildly wnrusabqt25-870 mg/g is considered moderately increased>300 mg/g is considered severely increasedKDIGO. (2013). KDIGO 2012 Clinical Practice Guideline for the Evaluation and Management of Chronic Kidney Disease. Official Journal of the International Society of Nephrology, 3(1), 1-150. Performed By: #### U ACR ####[facility] LABCLIA [id number] [place] [address] [place] Creatinine (U) [Mass/Vol] 98.9 mg/dL Normal 20.0-300.0 [facility] Comment on above: Order Comment: Speci men Type: URINE SPECIMENOrdering Facility: [facility] Address: [address] [place] [address] Performed By: #### U ACR ####[facility] LABIA [id number] [place] [address] [place] CBC panel Auto (Bld)on 06-22 Erythrocyte distribution width (RBC) [Ratio] 14.6 % Normal 11.5-15.0 [facility] Comment on above: Order Comment: Speci men Type: BLOOD SPECIMENOrdering Facility: [facility] Address: [address] [place] [address] Performed By: #### 5 8410-2 ####[facility] LABIA [id number] [place] [address] [place] Hematocrit (Bld) [Volume fraction] 44.0 % Normal 36.0-46.0 [facility] Comment on above: Order Comment: Speci men Type: BLOOD SPECIMENOrdering Facility: [facility] Address: [address] [place] [address] Performed By: #### 5 8410-2 ####[facility] LABIA [id number] [place] [address] [place] Hemoglobin (Bld) [Mass/Vol] 14.6 g/dL Normal 11.5-15.5 [facility] Comment on above: Order Comment: Speci men Type: BLOOD SPECIMENOrdering Facility: [facility] Address: [address] [place] [address] Performed By: #### 5 8410-2 ####[facility] LABIA [id number] [place] [address] [place] MCH (RBC) [Entitic mass] 29.0 pg Normal 26.0-34.0 [facility] Comment on above: Order Comment: Speci men Type: BLOOD SPECIMENOrdering Facility: [facility] Address: [address] [place] [address] Performed By: #### 5 8410-2 ####[facility] LABIA [id number] [place] [id number] [place] MCHC (RBC) [Mass/Vol] 33.2 g/dL Normal 30.5-36.[address] [facility] Comment on above: Order Comment: Speci men Type: BLOOD SPECIMENOrdering Facility: [facility] Address: [address] [place] [address] Performed By: #### 5 8410-2 ####[facility] LABCLIA [id number] [place] [address] [place] MCV (RBC) [Entitic vol] 87.3 fL Normal 80.0-100.0 [facility] Comment on above: Order Comment: Speci men Type: BLOOD SPECIMENOrdering Facility: [facility] Address: [address] [place] [address] Performed By: #### 5 8410-2 ####[facility] LABCLIA [id number] [place] [address] [place] Nucleated RBC (Bld) [#/Vol] 10*3/uL Normal <0.01 [facility] Comment on above: Order Comment: Speci men Type: BLOOD SPECIMENOrdering Facility: [facility] Address: [address] [place] [address] Performed By: #### 5 8410-2 ####[facility] LABCLIA [id number] [place] [address] [place] Platelet mean volume (Bld) [Entitic vol] 10.5 fL Normal 9.0-12.7 [facility] Comment on above: Order Comment: Speci men Type: BLOOD SPECIMENOrdering Facility: [facility] Address: [address] [place] [address] Performed By: #### 5 8410-2 ####[facility] LABCLIA [id number] [place] [address] [place] Platelets (Bld) [#/Vol] 325 10*3/uL Normal 150-400 [facility] Comment on above: Order Comment: Speci men Type: BLOOD SPECIMENOrdering Facility: [facility] Address: [address] [place] [address] Performed By: #### 5 8410-2 ####[facility] LABCLIA [id number] [place] [address] [place] RBC (Bld) [#/Vol] 5.04 10*6/uL Normal 3.90-5.20 [facility] Comment on above: Order Comment: Speci men Type: BLOOD SPECIMENOrdering Facility: [facility] Address: [address] [place] [address] Performed By: #### 5 8410-2 ####[facility] LABCLIA [id number] [place] [address] [place] WBC (Bld) [#/Vol] 8.99 10*3/uL Normal 3.70-11.00 [facility] Comment on above: Order Comment: Speci men Type: BLOOD SPECIMENOrdering Facility: [facility] Address: [address] [place] [address] Performed By: #### 5 8410-2 ####[facility] LABCLIA [id number] [place] [address] [place] Cholesterol in LDL Direct as say [Mass/Vol]on 06-22-2024 Cholesterol in LDL [Mass/Vol] 54 mg/dL Normal <100 [facility] Comment on above: Order Comment: Speci men Type: BLOOD SPECIMENOrdering Facility: [facility] Address: [address] [place] [address] Result Comment: <100 mg/dL, Optimal 100-129 mg/dL, Near optimal/above optimal 130-159 mg/dL, Borderline high 160-189 mg/dL, High>189 mg/dL, Very highSecondary prevention optimal LDL Cholesterol levels are recommended to be < 70 mg/dL Performed By: #### 2 4323-8, 53876-6, 96220-3, 29384-0 ####[facility] LABCLIA [id number] [address] [address] [place] Cholesterol in VLDL [Mass/Vol] 60 mg/dL High <30 [facility] Comment on above: Order Comment: Speci men Type: BLOOD SPECIMENOrdering Facility: [facility] Address: [address] [place] [address] Performed By: #### 2 4323-8, 49416-3, 34614-8, 44354-2 ####[facility] LABCLIA [id number] [address] [address] [place] Comprehensive metabolic 2000 panelon 06-22-2024 Albumin [Mass/Vol] 4.4 g/dL Normal 3.9-4.9 [facility] Comment on above: Order Comment: Speci men Type: BLOOD SPECIMENOrdering Facility: [facility] Address: [address] [place] [address] Performed By: #### 2 4323-8, 58902-9, , 45596-1 ####[facility] LABCLIA [id number] [place] [address] [place] ALP [Catalytic activity/Vol] 63 U/L Normal 34-123 [facility] Comment on above: Order Comment: Speci men Type: BLOOD SPECIMENOrdering Facility: [facility] Address: [address] [place] [address] Performed By: #### 2 4323-8, 75760-6, , ####[facility] LABCLIA [id number] [address] [address] [place] ALT [Catalytic activity/Vol] 14 U/L Normal 7-38 [facility] Comment on above: Order Comment: Speci men Type: BLOOD SPECIMENOrdering Facility: [facility] Address: [address] [place] [address] Performed By: #### 2 4323-8, 60206-8, 74845-4, 13484-6 ####[facility] LABCLIA [id number] [address] [address] [place] Anion gap [Moles/Vol] 13 mmol/L Normal 8-[address] [facility] Comment on above: Order Comment: Speci men Type: BLOOD SPECIMENOrdering Facility: [facility] Address: [address] [place] [address] Performed By: #### 2 4323-8, 35953-7, 47086-7, 13252-3 ####[facility] LABCLIA [id number] [address] [address] [place] AST [Catalytic activity/Vol] 20 U/L Normal 13-35 [facility] Comment on above: Order Comment: Speci men Type: BLOOD SPECIMENOrdering Facility: [facility] Address: [address] [place] [address] Performed By: #### 2 4323-8, 76340-8, , 71089-6 ####[facility] LABCLIA [id number] [address] [address] [place] Bilirubin [Mass/Vol] 0.2 mg/dL Normal 0.2-1.3 [facility] Comment on above: Order Comment: Speci men Type: BLOOD SPECIMENOrdering Facility: [facility] Address: [address] [place] [address] Performed By: #### 2 4323-8, 41550-6, , 34914-9 ####[facility] LABCLIA [id number] [address] [address] [place] Calcium [Mass/Vol] 9.6 mg/dL Normal 8.5-10.2 [facility] Comment on above: Order Comment: Speci men Type: BLOOD SPECIMENOrdering Facility: [facility] Address: [address] [place] [address] Performed By: #### 2 4323-8, 57179-4, 20540-7, 39460-8 ####[facility] LABCLIA [id number] [address] [address] [place] Chloride [Moles/Vol] 100 mmol/L Normal 98-107 [facility] Comment on above: Order Comment: Speci men Type: BLOOD SPECIMENOrdering Facility: [facility] Address: [address] [place] [address] Performed By: #### 2 4323-8, 58720-1, 94384-8, 11372-4 ####[facility] LABCLIA [id number] [address] [address] [place] CO2 [Moles/Vol] 26 mmol/L Normal 22-30 [facility] Comment on above: Order Comment: Speci men Type: BLOOD SPECIMENOrdering Facility: [facility] Address: [address] [place] [address] Performed By: #### 2 4323-8, 79629-0, 80445-1, 39843-9 ####[facility] LABCLIA [id number] [address] [address] [place] Creatinine [Mass/Vol] 0.52 mg/dL Low 0.58-0.[address] [facility] Comment on above: Order Comment: Speci men Type: BLOOD SPECIMENOrdering Facility: [facility] Address: [address] [place] [address] Performed By: #### 2 4323-8, 46880-3, , 79629-9 ####[facility] LABCLIA [id number] [address] [address] [place] Creatinine and Glomerular filtration rate.predicted panel (S/P/Bld) 104 mL/min/1.73m??? Normal >=60 [facility] Comment on above: Order Comment: Speci men Type: BLOOD SPECIMENOrdering Facility: [facility] Address: [address] [place] [address] Result Comment: Inge mated Glomerular Filtration Rate [...] accurately reflect actual GFR. Performed By: #### 2 4323-8, 18782-8, , 10241-9 ####[facility] LABIA [id number] [place] [id number] [place] Glucose [Mass/Vol] 158 mg/dL High 74-99 [facility] Comment on above: Order Comment: [place] Type: BLOOD SPECIMENOrdering Facility: [facility] Address: [address] [place] [address] Result Comment: The [place] Diabetes Association (ADA) provides guidance for cutoff [...] Standards of Medical Care in Diabetes 2016, [place] Diabetes Association. Diabetes Care. 2016.39(Suppl 1). Performed By: #### 2 4323-8, 37708-7, , ####[facility] LABIA [id number] [place] [id number] [place] Potassium [Moles/Vol] 3.5 mmol/L Low 3.7-5.[address] [facility] Comment on above: Order Comment: [place] Type: BLOOD SPECIMENOrdering Facility: [facility] Address: [address] [place] [address] Performed By: #### 2 4323-8, 02303-4, , 99926-7 ####[facility] LABCLIA [id number] [address] [address] [place] Protein [Mass/Vol] 7.4 g/dL Normal 6.3-8.0 [facility] Comment on above: Order Comment: Speci men Type: BLOOD SPECIMENOrdering Facility: [facility] Address: [address] [place] [address] Performed By: #### 2 4323-8, 92795-5, , 32623-7 ####[facility] LABIA [id number] [address] [address] [place] Sodium [Moles/Vol] 139 mmol/L Normal 136-144 [facility] Comment on above: Order Comment: Speci men Type: BLOOD SPECIMENOrdering Facility: [facility] Address: [address] [place] [address] Performed By: #### 2 4323-8, 08920-7, , 03351-9 ####[facility] [id number] [place] [address] [place] Urea nitrogen [Mass/Vol] 14 mg/dL Normal 7- [facility] Comment on above: Order Comment: Speci men Type: BLOOD SPECIMENOrdering Facility: [facility] Address: [address] [place] [address] Performed By: #### 2 4323-8, 09285-9, , 10866-5 ####[facility] LABIA [id number] [address] [address] [place] HbA1c (Bld)on 06-22-2024 Average glucose Estimated from glycated hemoglobin (Bld) [Mass/Vol] 157 mg/dL Normal [facility] Comment on above: Order Comment: Speci men Type: BLOOD SPECIMENOrdering Facility: [facility] Address: [address] [place], [place] [address] Result Comment: eAG: (Estimated average glucose) is a calculated value from HgbA1c and is patient account representative of the average blood glucose level in the last 2-3 month period. Performed By: #### 5 5454-3 ####[facility] LABCLIA [id number] [place] [address] [place] HbA1c (Bld) [Mass fraction] 7.1 % High 4.3-5.6 [facility] Comment on above: Order Comment: [place] Type: BLOOD SPECIMENOrdering Facility: [facility] Address: [address] [place] [address] Result Comment: [place] Diabetes Association guidelines indicate that patients with HgbA1c in the range 5.7-6.4% are at increased risk for development of diabetes, and intervention by lifestyle modification may be beneficial. HgbA1c greater or equal to 6.5% is considered diagnostic of diabetes. Performed By: #### 5 5454-3 ####[facility] LABIA [id number] [place] [address] [place] Lipid 1996 panelon 4 Cholesterol [Mass/Vol] 136 mg/dL Normal <200 [facility] Comment on above: Order Comment: [place] Type: BLOOD SPECIMENOrdering Facility: [facility] Address: [address] [place] [address] Result Comment: <200 mg/dL, Desirable 200-239 mg/dL, Borderline high>239 mg/dL, High Performed By: #### 2 4323-8, 80111-1, 02699-9, 19486-6 ####[facility] LABIA [id number] [address] [facility] Cholesterol in HDL [Mass/Vol] 22 mg/dL Low >39 [facility] Comment on above: Order Comment: [place] Type: BLOOD SPECIMENOrdering Facility: [facility] Address: [address] [place] [address] Result Comment: 40-5 9 mg/dL, Acceptable>59 mg/dL, High: Negative risk factor for coronary heart disease<40 mg/dL, Low: Positive risk factor for coronary heart disease Performed By: #### 2 4323-8, 52184-1, 59739-7, 97087-5 ####[facility] LABCLIA [id number] [address] [address] [place] Cholesterol in LDL [Mass/Vol] Normal [facility] Comment on above: Order Comment: Speci men Type: BLOOD SPECIMENOrdering Facility: [facility] Address: [address] [place] [address] Result Comment: Unab le to calculate due to increased Triglycerides. See LDL-Chol, Direct. Performed By: #### 2 4323-8, 37062-0, 50551-5, 43180-2 ####[facility] LABIA [id number] [address] [place] Cholesterol in LDL/Cholesterol in HDL [Mass ratio] Normal [facility] Comment on above: Order Comment: Speci men Type: BLOOD SPECIMENOrdering Facility: [facility] Address: [address] [place] [address] Result Comment: Unab le to calculate due to elevated Triglycerides.Reference:1. National Cholesterol Education Program ATP III Guideline At-A-Glance Quick Desk Reference: National Heart, Lung, and Blood [place]. National Institutes of Health. 2001: NIH Publication No. 01-3305.2. An International Atherosclerosis Society position paper: global recommendations for the management of dyslipidemia: executive summary, Atherosclerosis. 2014: 232(2):410-413. Performed By: #### 2 4323-8, 43378-6, 30817-5, 66959-9 ####[facility] LABCLIA [id number] [address] [address] [place] Cholesterol in VLDL [Mass/Vol] Normal [facility] Comment on above: Order Comment: Speci men Type: BLOOD SPECIMENOrdering Facility: [facility] Address: [address] [place] [address] Result Comment: Unab le to calculate due to increased Triglycerides. See LDL-Chol, Direct. Performed By: #### 2 4323-8, 94050-5, , ####[facility] LABCLIA [id number] [address] [address] [place] Cholesterol non HDL [Mass/Vol] 114 mg/dL Normal <130 [facility] Comment on above: Order Comment: Speci men Type: BLOOD SPECIMENOrdering Facility: [facility] Address: [address] [place] [address] Result Comment: <130 mg/dL, Optimal 130-159 mg/dL, Near optimal/above optimal 160-189 mg/dL, Borderline high 190-219 mg/dL, High>219 mg/dL, Very highSecondary prevention optimal non HDL Cholesterol levels are recommended to be <100 mg/dL Performed By: #### 2 4323-8, 59755-2, , ####[facility] LABCLIA [id number] [place] [address] [place] Cholesterol.total/Chol esterol in HDL [Mass ratio] 6.18 {ratio} High <5.10 [facility] Comment on above: Order Comment: Speci men Type: BLOOD SPECIMENOrdering Facility: [facility] Address: [address] [place] [address] Performed By: #### 2 4323-8, 20812-0, , ####[facility] LABCLIA [id number] [address] [address] [place] FASTING TIME 10 hrs Normal [facility] Comment on above: Order Comment: Speci men Type: BLOOD SPECIMENOrdering Facility: [facility] Address: [address] [place] [address] Performed By: #### 2 4323-8, 60321-3, , ####[facility] LABCLIA [id number] [address] [address] [place] Triglyceride [Mass/Vol] 407 mg/dL High <150 [facility] Comment on above: Order Comment: Speci men Type: BLOOD SPECIMENOrdering Facility: [facility] Address: [address] [place] [address] Result Comment: <150 mg/dL, Normal 150-199 mg/dL, Borderline high 200-499 mg/dL, High>499 mg/dL, Very high Performed By: #### 2 4323-8, 94952-8, 52359-6, 26024-9 ####[facility] LABCLIA [id number] [place] [address] [place] Magnesium SerPl-mCncon 06-22 Magnesium [Mass/Vol] 1.8 mg/dL Normal 1.7-2.3 [facility] Comment on above: Order Comment: Speci men Type: BLOOD SPECIMENOrdering Facility: [facility] Address: [address] [place] [address] Performed By: #### 2 4323-8, 17282-9, 82552-5, 66752-9 ####[facility] LABCLIA [id number] [place] [address] [place] CNPTOUTREACHon 06-04-2024 CNPTOUTREACH Normal [facility] CNPNon 05-20-2024 CNPN Normal [facility] CNOVon 05-19-2024 CNOV Normal [facility] COVID AND INFLUENZA A/B AND RSV PCR, ROUTINEon 05-19-2024 SARS-CoV-2 (COVID-19) RNA NICOLE+probe Ql (Unsp spec) SARS-COV-2 (AGENT OF COVID-19) RNA: Detected INFLUENZA A RNA: Not detected INFLUENZA B RNA: Not detected RESPIRATORY SYNCYTIAL VIRUS (RSV) RNA: Not detected Abnormal [facility] Comment on above: Performed By: #### C VFLRS ####[facility] LABCLIA [id number] [place] [id number] [place] Urine Cultureon 05-11-2024 URC Mixed Gram Positive Organisms Corona Count 11,000-25,000 MIXC Mixed contaminants. Submit a new specimen if indicated. Normal [facility] Comment on above: Performed By: #### M 100.2200 ####[facility] [address] [place], [address] Abdomen/Pelvis without Conto n 05-08-2024 Abdomen/Pelvis without Cont Normal [facility] Basic Metabolic Profile (BMP )on 05-08-2024 BUN/CRE 22.7 RATIO High 10-20 [facility] Comment on above: Performed By: #### L 100.0100, L500.2500 ####[facility] [address] [place], [address] CA,Total 9.1 mg/dL Normal 8.5-10.1 [facility] Comment on above: Performed By: #### L 100.0100, L500.2500 ####[facility] [address] [place], [address] Chloride [Moles/Vol] 104 mmol/L Normal 98-107 [facility] Comment on above: Performed By: #### L 100.0100, L500.2500 ####[facility] [address] [place], [address] CO2 [Moles/Vol] 28.0 mmol/L Normal 21.0-32.0 [facility] Comment on above: Performed By: #### L 100.0100, L500.2500 ####[facility] [address] [place], [address] Creatinine [Mass/Vol] 0.75 mg/dL Normal 0.55-1.02 [facility] Comment on above: Result Comment: The validity of the calculated GFR GFRAA in patients over70 years has not been determined. Clinical correlation isessential. Performed By: #### L 100.0100, L500.2500 ####[facility] [address] [place], [address] ECRCL 85.35 ml/min Normal [facility] Comment on above: Performed By: #### L 100.0100, L500.2500 ####[facility] [address] [place], [address] EST GFR - AA 100 mL/min Normal >60 [facility] Comment on above: Result Comment: Afri can Spanish GFR Calc Performed By: #### L 100.0100, L500.2500 ####[facility] [address] [place], [address] GAP 7 Normal 5-15 [facility] Comment on above: Performed By: #### L 100.0100, L500.2500 ####[facility] [address] [place], [address] GFR/1.73 sq M.predicted among non-blacks MDRD (S/P/Bld) [Vol rate/Area] 83 mL/min/{1.73_m2} Normal >60 [facility] Comment on above: Result Comment: Non- GFR Calc Performed By: #### L 100.0100, L500.2500 ####[facility] [address] [place], [address] Glucose [Mass/Vol] 152 mg/dL High 74-106 [facility] Comment on above: Result Comment: Fast ing Glucose result greater than or equal to 126 mg/dLsuggests DIABETES MELLITUS per A.D.A. criteria. Performed By: #### L 100.0100, L500.2500 ####[facility] [address] [place], [address] Potassium [Moles/Vol] 3.3 mmol/L Low 3.5-5.1 [facility] Comment on above: Result Comment: Slig ht Hemolysis, Result may be falsely increased. Performed By: #### L 100.0100, L500.2500 ####[facility] [address] [place], [address] Sodium [Moles/Vol] 139 mmol/L Normal 136-145 [facility] Comment on above: Performed By: #### L 100.0100, L500.2500 ####[facility] [address] [place], [address] Urea nitrogen [Mass/Vol] 17 mg/dL Normal 7-18 [facility] Comment on above: Performed By: #### L 100.0100, L500.2500 ####[facility] [address] [place], [address] CBC W/Diff, Automatedon 08-3 0-2024 Absolute Lymph 4.90 X10 3/uL High 0.83-4.51 [facility] Comment on above: Performed By: #### L 100.0100, L500.2500 ####[facility] [address] [place], [address] Absolute Neut 5.4 X10 3/uL Normal 2.0-7.7 [facility] Comment on above: Performed By: #### L 100.0100, L500.2500 ####[facility] [address] [place], [address] Basophils/100 WBC (Bld) 0.5 % Normal 0-1 [facility] Comment on above: Performed By: #### L 100.0100, L500.2500 ####[facility] [address] [place], [address] Eosinophils/100 WBC (Bld) 1.9 % Normal 0-5 [facility] Comment on above: Performed By: #### L 100.0100, L500.2500 ####[facility] [address] [place], [address] Erythrocyte distribution width (RBC) [Ratio] 14.0 % Normal 11.6-14.6 [facility] Comment on above: Performed By: #### L 100.0100, L500.2500 ####[facility] [address] [place], [address] Hematocrit (Bld) [Volume fraction] 41.7 % Normal 37-47 [facility] Comment on above: Performed By: #### L 100.0100, L500.2500 ####[facility] [address] [place], [address] Hemoglobin (Bld) [Mass/Vol] 14.4 g/dL Normal 12.0-15.0 [facility] Comment on above: Performed By: #### L 100.0100, L500.2500 ####[facility] [address] [place], [address] IG% 0.400 Normal 0.0-0.9 [facility] Comment on above: Result Comment: IG% - Immature Granulocytes (promyelocytes, myelocytes andmetamyelocytes) > 1% indicates that a LEFT SHIFT is Present. Performed By: #### L 100.0100, L500.2500 ####[facility] [address] [place], [address] Lymphocytes/100 WBC (Bld) 43.6 % High 19-41 [facility] Comment on above: Performed By: #### L 100.0100, L500.2500 ####[facility] [address] [place], [address] MCH (RBC) [Entitic mass] 28.3 pg Normal 27.0-32.0 [facility] Comment on above: Performed By: #### L 100.0100, L500.2500 ####[facility] [address] [place], [address] MCHC (RBC) [Mass/Vol] 34.5 g/dL Normal 32-36 [facility] Comment on above: Performed By: #### L 100.0100, L500.2500 ####[facility] [address] [place], [address] MCV (RBC) [Entitic vol] 82.1 fL Normal 81-99 [facility] Comment on above: Performed By: #### L 100.0100, L500.2500 ####[facility] [address] [place], [address] Monocytes/100 WBC (Bld) 6.0 % Normal 0-10 [facility] Comment on above: Performed By: #### L 100.0100, L500.2500 ####[facility] [address] [place], [address] Neutrophils/100 WBC (Bld) 47.6 % Normal 47-70 [facility] Comment on above: Performed By: #### L 100.0100, L500.2500 ####[facility] [address] [place], [address] Nucleated RBC (Bld) [#/Vol] 0 10*3/uL Normal 0-5 [facility] Comment on above: Performed By: #### L 100.0100, L500.2500 ####[facility] [address] [place], [address] Platelet mean volume (Bld) [Entitic vol] 9.8 fL Normal 6.2-12.0 [facility] Comment on above: Performed By: #### L 100.0100, L500.2500 ####[facility] [address] [place], [address] Platelets (Bld) [#/Vol] 315 10*3/uL Normal 150-450 [facility] Comment on above: Performed By: #### L 100.0100, L500.2500 ####[facility] [address] [place], [address] RBC (Bld) [#/Vol] 5.08 10*6/uL Normal 4.2-5.4 [facility] Comment on above: Performed By: #### L 100.0100, L500.2500 ####[facility] [address] [place], [address] RDW SD 41.3 fl Normal 35.1-43.9 [facility] Comment on above: Performed By: #### L 100.0100, L500.2500 ####[facility] [address] [place], [address] WBC (Bld) [#/Vol] 11.3 10*3/uL High 4.4-11.0 [facility] Comment on above: Performed By: #### L 100.0100, L500.2500 ####[facility] [address] [place], [address] Emergency Department Summary on 05-08-2024 Emergency Department Summary Normal [facility] Urinalysis, Completeon 05-08 EPI,RENAL 0-5 SEEN Normal 0-5 [facility] Comment on above: Order Comment: ISHMAEL CTOR TO SPECIFY Performed By: #### L 400.0001 ####[facility] [address] [place], [address] EPI,SQUAMOUS 5-10 SEEN Normal 5-10 [facility] Comment on above: Order Comment: ISHMAEL CTOR TO SPECIFY Performed By: #### L 400.0001 ####[facility] [address] [place], [address] RBC 0-5 SEEN Normal 0-5 [facility] Comment on above: Order Comment: ISHMAEL CTOR TO SPECIFY Performed By: #### L 400.0001 ####[facility] [address] [place], [address] WBC 10-25 SEEN Normal 0-5 [facility] Comment on above: Order Comment: ISHMAEL CTOR TO SPECIFY Performed By: #### L 400.0001 ####[facility] [address] [place], [address] BACTERIA 0 SEEN Normal None Seen [facility] Comment on above: Order Comment: ISHMAEL CTOR TO SPECIFY Performed By: #### L 400.0001 ####[facility] [address] [place], [place], [address] Mucus Ql (Urine sed) 0 SEEN Normal [facility] Comment on above: Order Comment: ISHMAEL CTOR TO SPECIFY Performed By: #### L 400.0001 ####[facility] [address] [place], [place], [address] CNOVon 05-07-2024 CNOV Normal [facility] CNPTOUTREACHon 04-28-2024 CNPTOUTREACH Normal [facility] CNOVon 04-20-2024 CNOV Normal [facility] CNPTOUTREACHon 04-09-2024 CNPTOUTREACH Normal [facility] Bacteria identified Cx Nom ( U)Ordered By: Monica Stewart on 04-01-2024 [facility] URINE CULTUREOrdered By: Marbella Stewart on 04-01-2024 Bacteria identified Cx Nom (U) <10,000 CFU/ml Normal urogenital blil [facility] CNPNon 03-31-2024 CNPN Normal [facility] Urinalysis complete panel (U )on 03-31-2024 Bacteria LM.HPF (Urine sed) [#/Area] Negative Negative /HPF [facility] Bilirubin Ql (U) Negative Negative [facility] Clarity (Unsp spec) Clear Clear [facility] Color (U) Yellow Yellow [facility] Epithelial cells LM.HPF (Urine sed) [#/Area] Few /HPF [facility] Glucose Test strip (U) [Mass/Vol] Negative Negative [facility] Hemoglobin Ql (U) Negative Negative [facility] Hyaline casts (Urine sed) [#/Area] 1-3 /LPF Abnormal 0 /LPF [facility] Interpretation and review of laboratory results Abnormal [facility] Ketones Ql (U) Negative Negative [facility] Leukocyte esterase Test strip Ql (U) Negative Negative [facility] Nitrite Ql (U) Negative Negative [facility] pH (U) 5.5 [pH] NINF - 8.5 [facility] Protein (U) [Mass/Vol] Negative Negative Cl [facility] RBC LM.HPF (Urine sed) [#/Area] 0-2 /HPF 0-2 /HPF [facility] Specific gravity (U) [Rel density] 1.018 1.005 - 1.030 [facility] Urobilinogen Ql (U) 0.2 EU/dL 0.2-1.0 EU/dL [facility] WBC LM.HPF (Urine sed) [#/Area] 0-5 /HPF 0-5 /HPF [facility] This test was develo ped and its performance characteristics determined by [facility]'s [facility] Pathology and Laboratory Medicine [place] ([facility]). It has not been cleared or approved by the FDA. -[facility] is regulated under CLIA as qualified to perform high-complexity testing. This test is used for clinical purposes. It should not be regarded as investigational or for research. [facility] Bacteria Ur Culton 4 Bacteria identified Cx Nom (U) ORGANISM ID: 1 <10,000 CFU/ml Normal urogenital bill Normal [facility] Comment on above: Performed By: #### 6 30-4 ####[facility] LABCLIA [id number] [place] [address] [place] CNOVon 03-30-2024 CNOV Normal [facility] Urinalysis complete panel (U )on 03-30-2024 Bacteria LM.HPF (Urine sed) [#/Area] Negative Normal Negative [facility] Comment on above: Order Comment: Speci men Type: URINE SPECIMENOrdering Facility: [facility] Address: [address] [place] [address] Performed By: #### 2 4356-8 ####[facility] LABCLIA [id number] [place] [address] [place] Bilirubin Ql (U) Negative Normal Negative [facility] Comment on above: Order Comment: Speci men Type: URINE SPECIMENOrdering Facility: [facility] Address: [address] [place] [address] Performed By: #### 2 4356-8 ####[facility] LABCLIA [id number] [place] [address] [place] Clarity (Unsp spec) Clear Normal Clear [facility] Comment on above: Order Comment: Speci men Type: URINE SPECIMENOrdering Facility: [facility] Address: [address] [place] [address] Performed By: #### 2 4356-8 ####[facility] LABIA [id number] [place] [address] [place] Color (U) Yellow Normal Yellow [facility] Comment on above: Order Comment: Speci men Type: URINE SPECIMENOrdering Facility: [facility] Address: [address] [place] [address] Performed By: #### 2 4356-8 ####[facility] LABIA [id number] [place] [address] [place] Epithelial cells LM.HPF (Urine sed) [#/Area] Few Normal [facility] Comment on above: Order Comment: Speci men Type: URINE SPECIMENOrdering Facility: [facility] Address: [address] [place], [place] [address] Performed By: #### 2 4356-8 ####[facility] LABIA [id number] [place] [address] [place] Glucose Test strip (U) [Mass/Vol] Negative Normal Negative [facility] Comment on above: Order Comment: Speci men Type: URINE SPECIMENOrdering Facility: [facility] Address: [address] [place] [address] Performed By: #### 2 4356-8 ####[facility] LABIA [id number] [place] [address] [place] Hemoglobin Ql (U) Negative Normal Negative [facility] Comment on above: Order Comment: Speci men Type: URINE SPECIMENOrdering Facility: [facility] Address: [address] [place] [address] Performed By: #### 2 4356-8 ####[facility] LABCLIA [id number] [place] [address] [place] Hyaline casts (Urine sed) [#/Area] 1-3 /LPF Abnormal 0 /LPF [facility] Comment on above: Order Comment: Speci men Type: URINE SPECIMENOrdering Facility: [facility] Address: [address] [place] [address] Performed By: #### 2 4356-8 ####[facility] LABCLIA [id number] [place] [address] [place] Ketones Ql (U) Negative Normal Negative [facility] Comment on above: Order Comment: Speci men Type: URINE SPECIMENOrdering Facility: [facility] Address: [address] [place] [address] Performed By: #### 2 4356-8 ####[facility] LABCLIA [id number] [place] [address] [place] Leukocyte esterase Test strip Ql (U) Negative Normal Negative [facility] Comment on above: Order Comment: Speci men Type: URINE SPECIMENOrdering Facility: [facility] Address: [address] [place] [address] Performed By: #### 2 4356-8 ####[facility] LABCLIA [id number] [place] [address] [place] Nitrite Ql (U) Negative Normal Negative [facility] Comment on above: Order Comment: Speci men Type: URINE SPECIMENOrdering Facility: [facility] Address: [address] [place] [address] Performed By: #### 2 4356-8 ####[facility] LABCLIA [id number] [place] [address] [place] pH (U) 5.5 [pH] Normal <8.5 [facility] Comment on above: Order Comment: Speci men Type: URINE SPECIMENOrdering Facility: [facility] Address: [address] [place] [address] Performed By: #### 2 4356-8 ####[facility] LABIA [id number] [place] [address] [place] Protein (U) [Mass/Vol] Negative Normal Negative [facility] Comment on above: Order Comment: Speci men Type: URINE SPECIMENOrdering Facility: [facility] Address: [address] [place] [address] Performed By: #### 2 4356-8 ####[facility] LABIA [id number] [place] [address] [place] RBC LM.HPF (Urine sed) [#/Area] 0-2 /HPF Normal 0-2 /HPF [facility] Comment on above: Order Comment: Speci men Type: URINE SPECIMENOrdering Facility: [facility] Address: [address] [place] [address] Performed By: #### 2 4356-8 ####[facility] [id number] [place] [address] [place] Specific gravity (U) [Rel density] 1.018 Normal 1.005-1.030 [facility] Comment on above: Order Comment: Speci men Type: URINE SPECIMENOrdering Facility: [facility] Address: [address] [place] [address] Performed By: #### 2 4356-8 ####[facility] LABIA [id number] [place] [address] [place] Urobilinogen Ql (U) 0.2 EU/dL Normal 0.2-1.0 EU/dL [facility] Comment on above: Order Comment: Speci men Type: URINE SPECIMENOrdering Facility: [facility] Address: [address] [place] [address] Performed By: #### 2 4356-8 ####[facility] LABIA [id number] [place] [address] [place] WBC LM.HPF (Urine sed) [#/Area] 0-5 /HPF Normal 0-5 /HPF [facility] Comment on above: Order Comment: Speci men Type: URINE SPECIMENOrdering Facility: [facility] Address: [address] [place] [address] Performed By: #### 2 4356-8 ####[facility] LABCLIA [id number] [place] [id number] [place] UA DIP, URINE (POC)on 2023 BILIRUBIN UA (POCT) Negative Negative [facility] CLARITY UA (POCT) Clear [facility] COLOR UA (POCT) Yellow [facility] GLUCOSE UA (POCT) Negative Negative mg/dL [facility] Hemoglobin Ql (U) Negative Negative [facility] Interpretation and review of laboratory results Abnormal [facility] KETONE UA (POCT) Negative Negative mg/dL [facility] LEUKOCYTES UA (POCT) Small Abnormal Negative [facility] NITRITE UA (POCT) Positive Abnormal Negative [facility] PH UA (POCT) 5.0 4.5 - 8.0 [facility] Protein Ql (U) Negative Negative mg/dL [facility] SPECIFIC GRAVITY UA (POCT) 1.020 1.005 - 1.030 [facility] UROBILINOGEN UA (POCT) 0.2 Leonie l E.U./dL [facility] Location:[address], [place], [place], [address] [place] [address] POINT OF CARE [facility] No Panel Informationon 03-04 Radiology Study observation (narrative) [facility] XR Chest PA and Lateralon IMPRESSION: Acute and/or chronic probable bronchitis. Peribronchial cuffing similar to recent CT Kyphoscoliosis more pronounced on nonweightbearing radiography than recumbent CT, incidentally [employer] Operator: OLIVE Transcribe Date/Time: Mar 04 2024 3:28P Dictated by : BEKAH MARX MD This examination was interpreted and the report reviewed and electronically signed by: BEKAH MARX MD on Mar 04 2024 3:36PM [facility] DIVISION OF RADIOLOGY * * *Final [...] than on CT DIVISION OF RADIOLOGY Provider, [facility] - 03/04/2024 * * *Final Report* [...] on nonweightbearing radiography than recumbent CT, incidentally [employer] Operator: OLIVE Transcribe Date/Time: Mar 04 2024 3:28P Dictated by : BEKAH MARX MD This examination was interpreted and the report reviewed and electronically signed by: BEKAH MARX MD on Mar 04 2024 3:36PM EST [facility] XR Elbow - right AP and Late ral and obliqueon 03-04-2024 IMPRESSION: 1. No acute osseous findings or joint effusion 2. Swelling of ulnar olecranon bursal region 3. Distal humeral hypertrophy pattern of chronic medial and lateral epicondylosis [employer] Operator: [facility] Transcribe Date/Time: Mar 04 2024 3:36P Dictated by : BEKAH MARX MD This examination was interpreted and the report reviewed and electronically signed by: BEKAH MARX MD on Mar 04 2024 3:42PM [facility] DIVISION OF RADIOLOGY * * *Final [...] lateral humeral epicondyles. DIVISION OF RADIOLOGY Provider, [facility] - 03/04/2024 * * *Final Report* [...] pattern of chronic medial and lateral epicondylosis [employer] Operator: [facility] Transcribe Date/Time: Mar 04 2024 3:36P Dictated by : BEKAH MARX MD This examination was interpreted and the report reviewed and electronically signed by: BEKAH MARX MD on Mar 04 2024 3:42PM EST [facility] XR Elbow - right AP and Late ral and obliqueOrdered By: Ccf Provider on 03-04-2024 [facility] XR Foot - left AP and Latera l and obliqueon 02-24-2024 IMPRESSION: No acute osseous abnormality [employer] Operator[facility] Transcribe Date/Time: Feb 24 2024 4:25P Dictated by : YENIFER ROLDAN MD This examination was interpreted and the report reviewed and electronically signed by: YENIFER ROLDAN MD on Feb 24 2024 4:33PM [facility] DIVISION OF RADIOLOGY * * *Final [...] Plantar calcaneal spur. DIVISION OF RADIOLOGY Provider, [facility] - 02/24/2024 * * *Final Report* [...] spur. IMPRESSION IMPRESSION: No acute osseous abnormality [employer] Operator: OLIVE Transcribe Date/Time: Feb 24 2024 4:25P Dictated by : YENIFER ROLDAN MD This examination was interpreted and the report reviewed and electronically signed by: YENIFER ROLDAN MD on Feb 24 2024 4:33PM EST [facility] XR Foot - left AP and Latera l and obliqueOrdered By: Ccf Provider on 02-24-2024 [facility] XR Foot - left AP and Latera l and obliqueon 02-18-2024 Radiology Study observation (narrative) [facility] C-REACTIVE PROTEIN (CRP)on 0 12-07-2023 CRP [Mass/Vol] 0.5 mg/dL <0.9 mg/dL [facility] CK CREATINE KINASEon 024 CK [Catalytic activity/Vol] 260 U/L High 42 - 196 U/L [facility] CORTISOL Don 12-07-2023 Cortisol [Mass/Vol] 10.4 ug/dL 4.8 - 19 .5 ug/dL [facility] ESR Westergren method (Bld) [Velocity]on 12-07-2023 ESR (Bld) [Velocity] 17 mm/h 0 - 20 mm/hr Cl [facility] T3 FREE BLDon 12-07-2023 Free T3 [Mass/Vol] 2.9 pg/mL 2.3 - 4.1 pg/mL [facility] T4 FREE/FREE THYROXon 2023 Free T4 [Mass/Vol] 0.9 ng/dL 0.9 - 1.7 ng/dL [facility] TSH BLDon 12-07-2023 TSH Qn 0.899 m[IU]/L 0.270 - 4.200 mIU/L [facility] Thin prep Papanicolaou smear with manual screeningOrdered By: Uriel Friend on 11-28-2023 Thin prep Papanicolaou smear with manual screening 210 mg/dL 74-106 [facility] Comment on above: MANAGEMENT OF PATIEN T CARE PER NURSING PROTOCOL CT Chest for screening WO co ntraston 11-22-2023 [facility] NITRIC OXIDE, EXHALEDon 03- [facility] SPIROMETRY WITH DILATOR IF O BSTRUCTEDon 11-11-2023 [id number]% PRE (L/S) 1.13 L/S [facility] FEV1 PRE (L) 1.99 L [facility] FEV1/FVC PRE (%) 69 % [facility] FVC PRE (L) 2.90 L [facility] PEF PRE (L/S) 5.40 L/S [facility] Absolute lymphocyte countOrd ered By: Jono Castro on 09-20-2023 Lymphocytes Auto (Unsp spec) [#/Vol] 3.50 10*3/uL 0.83-4.51 [facility] Basophil percentageOrdered B y: Jono Castro on 09-20-2023 Basophils/100 WBC (Bld) 0.6 % 0-1 [facility] Chloride [Moles/Vol] 105 mmol/L 98-107 [facility] Eosinophils/100 WBC (Bld) 2.4 % 0-5 [facility] Glucose [Mass/Vol] 163 mg/dL 74-106 [facility] Comment on above: Fasting Glucose resu lt greater than or equal to 126 mg/dL suggests DIABETES MELLITUS per A.D.A. criteria. Neutrophils (Bld) [#/Vol] 5.2 10*3/uL 2.0-7.7 [facility] Neutrophils/100 WBC (Bld) 54.3 % 47-70 [facility] Potassium [Moles/Vol] 3.6 mmol/L 3.5-5.1 [facility] Sodium [Moles/Vol] 140 mmol/L 136-145 [facility] WBC (Bld) [#/Vol] 9.6 10*3/uL 4.4-11.0 [facility] Blood erythrocytes count (nu mber/volume)Ordered By: Jono Castro on 09-20-2023 RBC (Bld) [#/Vol] 5.24 10*6/uL 4.2-5.4 [facility] Blood hemoglobin measurement (mass/volume)Ordered By: Jono Castro on 09-20-2023 Hemoglobin (Bld) [Mass/Vol] 14.9 g/dL 12.0-15.0 [facility] Blood lymphocytes/100 leukoc ytesOrdered By: Jono Castro on 09-20-2023 Lymphocytes/100 WBC (Bld) 36.5 % 19-41 [facility] Blood monocytes/100 leukocyt esOrdered By: Jono Castro on 09-20-2023 Monocytes/100 WBC (Bld) 5.8 % 0-10 [facility] Blood platelet mean volumeOr dered By: Jono Castro on 09-20-2023 Platelet mean volume (Bld) [Entitic vol] 9.7 fL 6.2-12.0 [facility] Determination of erythrocyte mean corpuscular volume (MCV)Ordered By: Jono Catsro on 09-20-2023 MCV (RBC) [Entitic vol] 83.4 fL 81-99 [facility] Erythrocyte sedimentation ra teOrdered By: Jono Castro on 09-20-2023 ESR (Bld) [Velocity] 8 mm/h 0-30 [facility] Hematocrit Auto (Bld) [Volum e fraction]Ordered By: Jono Castro on 09-20-2023 Hematocrit (Bld) [Volume fraction] 43.7 % 37-47 [facility] Laboratory - Chemistry and C hemistry - challengeOrdered By: Jono Castro on 09-20-2023 CO2 [Moles/Vol] 28.0 mmol/L 21.0-32.0 [facility] Urea nitrogen/Creatinine [Mass ratio] 19.5 mg/mg 10-20 [facility] Laboratory - Hematology and Cell countsOrdered By: Jono Castro on 09-20-2023 Erythrocyte distribution width (RBC) [Entitic vol] 42.4 fL 35.1-43.9 [facility] Erythrocyte distribution width (RBC) [Ratio] 14.0 % 11.6-14.6 [facility] Immature granulocytes/100 WBC (Bld) 0.400 % 0.0-0.9 [facility] Comment on above: IG% - Immature Granu locytes (promyelocytes, myelocytes and metamyelocytes) > 1% indicates that a LEFT SHIFT is Present. MCH (RBC) [Entitic mass] 28.4 pg 27.0-32.0 [facility] Nucleated RBC/100 WBC (Bld) [Ratio] 0 % 0-5 [facility] MCHC Auto (RBC) [Mass/Vol]Or dered By: Jono Castro on 09-20-2023 MCHC (RBC) [Mass/Vol] 34.1 g/dL 32-36 [facility] No Panel InformationOrdered By: Jono Castro on 09-20-2023 Estimated Creatinine Clearance Calc 117.10 ml/min [facility] Estimated GFR (MDRD) Amer 139 mL/min >60 [facility] Comment on above: GFR Calc Estimated GFR (MDRD) Non-Af Amer 115 mL/min >60 [facility] Comment on above: Non- GFR Calc Platelets bldOrdered By: Pet er Matthew on 09-20-2023 Platelets (Bld) [#/Vol] 312 10*3/uL 150-450 [facility] Serum or plasma calcium pradip urement (mass/volume)Ordered By: Jono Castro on 09-20-2023 Calcium [Mass/Vol] 9.1 mg/dL 8.5-10.1 [facility] Serum or plasma creatinine m easurement (mass/volume)Ordered By: Jono Castro on 09-20-2023 Creatinine [Mass/Vol] 0.56 mg/dL 0.55-1.02 [facility] Comment on above: The validity of the calculated GFR & GFRAA in patients over 70 years has not been determined. Clinical correlation is essential. Serum or plasma urea nitroge n measurement (mass/volume)Ordered By: Jono Castro on 09-20-2023 Urea nitrogen [Mass/Vol] 11 mg/dL 7-18 [facility] Thin prep Papanicolaou smear with manual screeningOrdered By: Jono Castro on 09-20-2023 Thin prep Papanicolaou smear with manual screening 7 5-15 [facility] XR Shoulder - right 3 Viewso n 07-25-2023 IMPRESSION: No acute fracture or dislocation. Mild right AC joint osteoarthritis. [employer] Operator: [employer] Transcribe Date/Time: Jul 25 2023 8:55A Dictated by : NETTIE HENDERSON MD This examination was interpreted and the report reviewed and electronically signed by: NETTIE HENDERSON MD on Jul 25 2023 8:57AM [facility] DIVISION OF RADIOLOGY * * *Final [...] not high riding. DIVISION OF RADIOLOGY Provider, [facility] - 07/25/2023 * * *Final Report* [...] or dislocation. Mild right AC joint osteoarthritis. [employer] Operator: OLIVE Transcribe Date/Time: Jul 25 2023 8:55A Dictated by : NETTIE HENDERSON MD This examination was interpreted and the report reviewed and electronically signed by: NETTIE HENDERSON MD on Jul 25 2023 8:57AM EST [facility] XR Shoulder - right 3 ViewsO rdered By: Ccf Provider on 07-25-2023 [facility] XR SHOULDER GENERAL 3V OR MO RE AP/TRUE AP/OTHER RIGHTon 07-23-2023 [facility] XR Shoulder - right 3 Viewso n 07-23-2023 Radiology Study observation (narrative) [facility] Absolute lymphocyte countOrd ered By: Corey Rubi on 06-27-2023 Lymphocytes Auto (Unsp spec) [#/Vol] 3.45 10*3/uL 0.83-4.51 [facility] Basophil percentageOrdered B y: Corey Rubi on 06-27-2023 Basophils/100 WBC (Bld) 0.3 % 0-1 [facility] Chloride [Moles/Vol] 105 mmol/L 98-107 [facility] Eosinophils/100 WBC (Bld) 4.5 % 0-5 [facility] Glucose [Mass/Vol] 181 mg/dL 74-106 [facility] Comment on above: Fasting Glucose resu lt greater than or equal to 126 mg/dL suggests DIABETES MELLITUS per A.D.A. criteria. Neutrophils (Bld) [#/Vol] 2.8 10*3/uL 2.0-7.7 [facility] Neutrophils/100 WBC (Bld) 40.1 % 47-70 [facility] Potassium [Moles/Vol] 3.3 mmol/L 3.5-5.1 [facility] Sodium [Moles/Vol] 139 mmol/L 136-145 [facility] WBC (Bld) [#/Vol] 7.1 10*3/uL 4.4-11.0 [facility] Blood erythrocytes count (nu mber/volume)Ordered By: Corey Rubi on 06-27-2023 RBC (Bld) [#/Vol] 5.02 10*6/uL 4.2-5.4 [facility] Blood hemoglobin measurement (mass/volume)Ordered By: Corey Rubi on 06-27-2023 Hemoglobin (Bld) [Mass/Vol] 14.3 g/dL 12.0-15.0 [facility] Blood lymphocytes/100 leukoc ytesOrdered By: Corey Rubi on 06-27-2023 Lymphocytes/100 WBC (Bld) 48.9 % 19-41 [facility] Blood monocytes/100 leukocyt esOrdered By: Coreybecky Rubi on 06-27-2023 Monocytes/100 WBC (Bld) 5.9 % 0-10 [facility] Blood platelet mean volumeOr dered By: Corey Rubi on 06-27-2023 Platelet mean volume (Bld) [Entitic vol] 9.6 fL 6.2-12.0 [facility] Determination of erythrocyte mean corpuscular volume (MCV)Ordered By: Corey Rubi on 06-27-2023 MCV (RBC) [Entitic vol] 84.3 fL 81-99 [facility] Hematocrit Auto (Bld) [Volum e fraction]Ordered By: Corey Rubi on 06-27-2023 Hematocrit (Bld) [Volume fraction] 42.3 % 37-47 [facility] Laboratory - Chemistry and C hemistry - challengeOrdered By: Corey Rubi on 06-27-2023 CO2 [Moles/Vol] 26.0 mmol/L 21.0-32.0 [facility] Natriuretic peptide B (Bld) [Mass/Vol] 68.4 pg/mL 0-100 [facility] Urea nitrogen/Creatinine [Mass ratio] 20.5 mg/mg 10-20 [facility] Laboratory - Hematology and Cell countsOrdered By: Corey Rubi on 06-27-2023 Erythrocyte distribution width (RBC) [Entitic vol] 37.5 fL 35.1-43.9 [facility] Erythrocyte distribution width (RBC) [Ratio] 12.5 % 11.6-14.6 [facility] Immature granulocytes/100 WBC (Bld) 0.300 % 0.0-0.9 [facility] Comment on above: IG% - Immature Granu locytes (promyelocytes, myelocytes and metamyelocytes) > 1% indicates that a LEFT SHIFT is Present. MCH (RBC) [Entitic mass] 28.5 pg 27.0-32.0 [facility] Nucleated RBC/100 WBC (Bld) [Ratio] 0 % 0-5 [facility] Auto (RBC) [Mass/Vol]Or dered By: Corey Rubi on 06-27-2023 MCHC (RBC) [Mass/Vol] 33.8 g/dL 32-36 [facility] No Panel InformationOrdered By: Corey Rubi on 06-27-2023 Estimated Creatinine Clearance Calc 91.36 ml/min [facility] Estimated GFR (MDRD) Amer 133 mL/min >60 [facility] Comment on above: GFR Calc Estimated GFR (MDRD) Non-Af Amer 110 mL/min >60 [facility] Comment on above: Non- GFR Calc Troponin I High Sensitivity 6 pg/mL 3.0-54.0 [facility] Comment on above: Please Note: New Evelyn t Units and Gender Specific Reference Ranges. For more information see Policy Stat Procedure [place] High Sensitivity Troponin (TNIH) and attachments. Platelets bldOrdered By: Devaughn Rubi on 06-27-2023 Platelets (Bld) [#/Vol] 326 10*3/uL 150-450 [facility] Serum or plasma calcium pradip urement (mass/volume)Ordered By: Corey Rubi on 06-27-2023 Calcium [Mass/Vol] 8.6 mg/dL 8.5-10.1 [facility] Serum or plasma creatinine m easurement (mass/volume)Ordered By: Corey Rubi on 06-27-2023 Creatinine [Mass/Vol] 0.59 mg/dL 0.55-1.02 [facility] Comment on above: The validity of the calculated GFR & GFRAA in patients over 70 years has not been determined. Clinical correlation is essential. Serum or plasma urea nitroge n measurement (mass/volume)Ordered By: Corey Rubi on 06-27-2023 Urea nitrogen [Mass/Vol] 12 mg/dL 7-18 [facility] Thin prep Papanicolaou smear with manual screeningOrdered By: Corey Rubi on 06-27-2023 Thin prep Papanicolaou smear with manual screening 8 5-15 [facility] No Panel InformationOrdered By: Uriel Friend on 06-20-2023 Stool Pancreatic Elastase 145 >200 [facility] Comment on above: Result Units: ug Tammy st./g Severe Pancreatic Insufficiency: <100 Moderate Pancreatic Insufficiency: 100 - 200 Normal: >200Performed at: [facility] - [facility] [address] [id number] Director: Aung Araujo MD, Phone: [phone] Laboratory - Miscellaneous t estsOrdered By: Uriel Caceres on 06-19-2023 Service comment (Unsp spec) [Interp] Comment . [facility] Comment on above: Levels of Specific [...] 06-19-2023 Scallop Allergen <0.10 kU/L Class 0 [facility] Sesame Seed Allergen IgE Antibody <0.10 kU/L Class 0 [facility] Comment on above: Performed at: [facility] [address] [id number] Director: Aung Araujo MD, Phone: [phone] Shrimp Allergen <0.10 kU/L Class 0 [facility] Serum black walnut IgE antib suze assay (units/volume)Ordered By: Uriel Caceres on 06-19-2023 Black [place] IgE Qn (S) <0.10 kU/L Class 0 [facility] Serum clam IgE antibody assa y (units/volume)Ordered By: Uriel Caceres on 06-19-2023 Clam IgE Qn (S) <0.10 kU/L Class 0 [facility] Serum codfish IgE antibody a ssay (units/volume)Ordered By: Uriel Caceres on 06-19-2023 Codfish IgE Qn (S) <0.10 kU/L Class 0 [facility] Serum corn IgE antibody assa y (units/volume)Ordered By: Uriel Caceres on 06-19-2023 [place] IgE Qn (S) <0.10 kU/L Class 0 [facility] Serum cow milk IgE antibody assay (units/volume)Ordered By: Uriel Caceres on 06-19-2023 Cow milk IgE Qn (S) 0.49 kU/L Class I [facility] Serum egg white IgE antibody assay (units/volume)Ordered By: Uriel Caceres on 06-19-2023 Egg white IgE Qn (S) 0.19 kU/L Class 0/I [facility] Serum peanut IgE antibody as say (units/volume)Ordered By: Uriel Caceres on 06-19-2023 Peanut IgE Qn (S) 0.44 kU/L Class I [facility] Serum soybean IgE antibody a ssay (units/volume)Ordered By: Uriel Caceres on 06-19-2023 Soybean IgE Qn (S) <0.10 kU/L Class 0 [facility] Serum wheat IgE antibody ass ay (units/volume)Ordered By: Uriel Caceres on 06-19-2023 Wheat IgE Qn (S) <0.10 kU/L Class 0 [facility] Culture, urineOrdered By: Blake Morales on 06-10-2023 Bacteria identified Cx Nom (U) Escherichia coli [facility] Bacteria identified Cx Nom (U) Escherichia coli [facility] C-REACTIVE PROTEIN (CRP)on 0 06-01-2023 CRP [Mass/Vol] <0.9 mg/dL [facility] Comprehensive metabolic 2000 panelon 06-01-2023 Albumin [Mass/Vol] 4.3 g/dL 3.9 - 4.9 g/dL [facility] ALP [Catalytic activity/Vol] 84 U/L 34 - 123 U/L [facility] ALT [Catalytic activity/Vol] 11 U/L 7 - 38 U/L [facility] Anion gap [Moles/Vol] 14 mmol/L 9 - 18 mmol/L [facility] AST [Catalytic activity/Vol] 14 U/L 13 - 35 U/L [facility] Bilirubin [Mass/Vol] 0.2 mg/dL 0.2 - 1 .3 mg/dL [facility] Calcium [Mass/Vol] 9.2 mg/dL 8.5 - 10. 2 mg/dL [facility] Chloride [Moles/Vol] 103 mmol/L 97 - 10 5 mmol/L [facility] CO2 [Moles/Vol] 22 mmol/L 22 - 30 mmol/L [facility] Creatinine [Mass/Vol] 0.50 mg/dL Low 0.58 - 0.96 mg/dL [facility] Estimated Glomerular Filtration Rate 106 mL/min/1.73m >=60 mL/min/1.73m [facility] Glucose [Mass/Vol] 201 mg/dL High 74 - 99 mg/dL [facility] Potassium [Moles/Vol] 3.5 mmol/L Low 3.7 - 5.1 mmol/L [facility] Protein [Mass/Vol] 6.9 g/dL 6.3 - 8.0 g/dL [facility] Sodium [Moles/Vol] 139 mmol/L 136 - 144 mmol/L [facility] Urea nitrogen [Mass/Vol] 13 mg/dL 7 - 21 mg/dL [facility] TSH BLDon 06-01-2023 TSH Qn 0.989 m[IU]/L 0.270 - 4.200 mIU/L [facility] CBC W Auto Differential pane l (Bld)on 05-31-2023 Basophils (Bld) [#/Vol] 0.08 10*3/uL <0.11 k/uL [facility] Basophils/100 WBC (Bld) 0.6 % [facility] Differential cell count method Nom (Bld) Auto [facility] Eosinophils (Bld) [#/Vol] 1.56 10*3/uL High <0.46 k/uL [facility] Eosinophils/100 WBC (Bld) 11.8 % [facility] Erythrocyte distribution width (RBC) [Ratio] 13.1 % 11.5 - 15.0 % [facility] Hematocrit (Bld) [Volume fraction] 44.5 % 36.0 - 46.0 % [facility] Hemoglobin (Bld) [Mass/Vol] 15.7 g/dL High 11.5 - 15.5 g/dL [facility] Immature granulocytes (Bld) [#/Vol] 0.07 10*3/uL <0.10 k/uL [facility] Immature granulocytes/100 WBC (Bld) 0.5 % [facility] Lymphocytes (Bld) [#/Vol] 4.52 10*3/uL High 1.00 - 4.00 k/uL [facility] Lymphocytes/100 WBC (Bld) 34.3 % [facility] MCH (RBC) [Entitic mass] 29.7 pg 26.0 - 34.0 pg [facility] MCHC (RBC) [Mass/Vol] 35.3 g/dL 30.5 - 36.0 g/dL [facility] MCV (RBC) [Entitic vol] 84.3 fL 80.0 - 100.0 fL [facility] Monocytes (Bld) [#/Vol] 0.77 10*3/uL <0.87 k/uL [facility] Monocytes/100 WBC (Bld) 5.8 % [facility] Neutrophils (Bld) [#/Vol] 6.19 10*3/uL 1.45 - 7.50 k/uL [facility] Neutrophils/100 WBC (Bld) 47.0 % [facility] Nucleated RBC (Bld) [#/Vol] <0.01 k/uL [facility] Nucleated RBC/100 WBC (Bld) [Ratio] 0.0 /100 WBC [facility] Platelet mean volume (Bld) [Entitic vol] 9.8 fL 9.0 - 12.7 fL [facility] Platelets (Bld) [#/Vol] 401 10*3/uL High 150 - 400 k/uL [facility] RBC (Bld) [#/Vol] 5.28 10*6/uL High 3.90 - 5.2 0 m/uL [facility] WBC (Bld) [#/Vol] 13.19 10*3/uL High 3.70 - 11 .00 k/uL [facility] ESR Westergren method (Bld) [Velocity]on 05-31-2023 ESR (Bld) [Velocity] 5 mm/h 0 - 20 mm/hr [facility] XR CHEST 2V FRONTAL/LATon [facility] XR Chest PA and Lateralon IMPRESSION: Small bilateral pleural effusions. [employer] Operator: OLIVE Transcribe Date/Time: May 28 2023 6:51P Dictated by : TAB BARKLEY MD This examination was interpreted and the report reviewed and electronically signed by: TAB BARKLEY MD on May 28 2023 6:52PM [facility] DIVISION OF RADIOLOGY * * *Final [...] soft tissues: Unremarkable. DIVISION OF RADIOLOGY Provider, [facility] - 05/28/2023 * * *Final Report* * [...] Unremarkable. IMPRESSION IMPRESSION: Small bilateral pleural effusions. [employer] Operator: PSCB Transcribe Date/Time: May 28 2023 6:51P Dictated by : TAB BARKLEY MD This examination was interpreted and the report reviewed and electronically signed by: TAB BARKLEY MD on May 28 2023 6:52PM [facility] Radiology Study observation (narrative) [facility] XR Chest PA and LateralOrder ed By: [facility] Provider on 05-28-2023 [facility] Absolute lymphocyte countOrd ered By: Diogo Garza on 05-26-2023 Lymphocytes Auto (Unsp spec) [#/Vol] 3.20 10*3/uL 0.83-4.51 [facility] Basophil percentageOrdered B y: Diogo Garza on 05-26-2023 Basophils/100 WBC (Bld) 0.7 % 0-1 [facility] Chloride [Moles/Vol] 106 mmol/L 98-107 [facility] Eosinophils/100 WBC (Bld) 6.6 % 0-5 [facility] Glucose [Mass/Vol] 193 mg/dL 74-106 [facility] Comment on above: Fasting Glucose resu lt greater than or equal to 126 mg/dL suggests DIABETES MELLITUS per A.D.A. criteria. Neutrophils (Bld) [#/Vol] 6.2 10*3/uL 2.0-7.7 [facility] Neutrophils/100 WBC (Bld) 56.9 % 47-70 [facility] Potassium [Moles/Vol] 3.3 mmol/L 3.5-5.1 [facility] Sodium [Moles/Vol] 137 mmol/L 136-145 [facility] WBC (Bld) [#/Vol] 11.0 10*3/uL 4.4-11.0 [facility] Basophil percentage 0 SEEN /hpf 0-5 [facility] Bilirubin Test strip Ql (U)O rdered By: Diogo Garza on 05-26-2023 Bilirubin Ql (U) Negative Negative [facility] Blood erythrocytes count (nu mber/volume)Ordered By: Diogo Garza on 05-26-2023 RBC (Bld) [#/Vol] 4.81 10*6/uL 4.2-5.4 [facility] Blood hemoglobin measurement (mass/volume)Ordered By: Diogo Garza on 05-26-2023 Hemoglobin (Bld) [Mass/Vol] 13.8 g/dL 12.0-15.0 [facility] Blood lymphocytes/100 leukoc ytesOrdered By: Diogo Garza on 05-26-2023 Lymphocytes/100 WBC (Bld) 29.2 % 19-41 [facility] Blood monocytes/100 leukocyt esOrdered By: Diogo Garza on 05-26-2023 Monocytes/100 WBC (Bld) 6.0 % 0-10 [facility] Blood platelet mean volumeOr dered By: Diogo Garza on 05-26-2023 Platelet mean volume (Bld) [Entitic vol] 9.7 fL 6.2-12.0 [facility] Calcium oxalate crystals det ection in urine sediment by light microscopyOrdered By: Diogo Garza on 05-26-2023 Calcium oxalate crystals LM Ql (Urine sed) 2+ /hpf [facility] Determination of erythrocyte mean corpuscular volume (MCV)Ordered By: Diogo Garza on 05-26-2023 MCV (RBC) [Entitic vol] 86.1 fL 81-99 [facility] Hematocrit Auto (Bld) [Volum e fraction]Ordered By: Diogo Garza on 05-26-2023 Hematocrit (Bld) [Volume fraction] 41.4 % 37-47 [facility] Ketones Test strip Ql (U)Ord ered By: Diogo Garza on 05-26-2023 Ketones Ql (U) Negative Negative [facility] Laboratory - Chemistry and C hemistry - challengeOrdered By: Diogo Garza on 05-26-2023 CO2 [Moles/Vol] 25.0 mmol/L 21.0-32.0 [facility] Urea nitrogen/Creatinine [Mass ratio] 16.8 mg/mg 10-20 [facility] Laboratory - Hematology and Cell countsOrdered By: Diogo Garza on 05-26-2023 Erythrocyte distribution width (RBC) [Entitic vol] 40.7 fL 35.1-43.9 [facility] Erythrocyte distribution width (RBC) [Ratio] 13.1 % 11.6-14.6 [facility] Immature granulocytes/100 WBC (Bld) 0.600 % 0.0-0.9 [facility] Comment on above: IG% - Immature Granu locytes (promyelocytes, myelocytes and metamyelocytes) > 1% indicates that a LEFT SHIFT is Present. MCH (RBC) [Entitic mass] 28.7 pg 27.0-32.0 [facility] Nucleated RBC/100 WBC (Bld) [Ratio] 0 % 0-5 [facility] MCHC Auto (RBC) [Mass/Vol]Or dered By: Diogo Garza on 05-26-2023 MCHC (RBC) [Mass/Vol] 33.3 g/dL 32-36 [facility] Mucus LM Ql (Urine sed)Order ed By: Diogo Garza on 05-26-2023 Mucus Ql (Urine sed) 0 SEEN /hpf [facility] Nitrite Test strip Ql (U)Ord ered By: Diogo Garza on 05-26-2023 Nitrite Ql (U) Negative Negative [facility] No Panel InformationOrdered By: Diogo Garza on 05-26-2023 Estimated Creatinine Clearance Calc 91.01 ml/min [facility] Estimated GFR (MDRD) Amer 131 mL/min >60 [facility] Comment on above: GFR Calc Estimated GFR (MDRD) Non-Af Amer 108 mL/min >60 [facility] Comment on above: Non- GFR Calc Platelets bldOrdered By: Naeem Garza on 05-26-2023 Platelets (Bld) [#/Vol] 313 10*3/uL 150-450 [facility] Protein Test strip Ql (U)Ord ered By: Diogo Garza on 05-26-2023 Protein Ql (U) 30 mg/dl Negative [facility] Serum or plasma calcium pradip urement (mass/volume)Ordered By: Diogo Garza on 05-26-2023 Calcium [Mass/Vol] 9.0 mg/dL 8.5-10.1 [facility] Serum or plasma creatinine m easurement (mass/volume)Ordered By: Diogo Garza on 05-26-2023 Creatinine [Mass/Vol] 0.60 mg/dL 0.55-1.02 [facility] Comment on above: The validity of the calculated GFR & GFRAA in patients over 70 years has not been determined. Clinical correlation is essential. Serum or plasma urea nitroge n measurement (mass/volume)Ordered By: Diogo Garza on 05-26-2023 Urea nitrogen [Mass/Vol] 10 mg/dL 7-18 [facility] Squamous epithelial cells de tection in urine sediment by light microscopyOrdered By: Diogo Garza on 05-26-2023 Epithelial cells.squamous LM Ql (Urine sed) 0-5 SEEN /hpf 5-10 [facility] Thin prep Papanicolaou smear with manual screeningOrdered By: Diogo Garza on 05-26-2023 Thin prep Papanicolaou smear with manual screening 6 5-15 [facility] Urine blood detectionOrdered By: Diogo Garza on 05-26-2023 RBC Ql (U) 25 /ul Negative [facility] RBC Ql (U) 0 SEEN /hpf 0-5 [facility] Urine clarityOrdered By: Naeem Garza on 05-26-2023 Clarity (U) Clear Clear [facility] Urine color determinationOrd ered By: Diogo Garza on 05-26-2023 Color (U) Yellow Yellow [facility] Urine glucose detectionOrder ed By: Diogo Garza on 05-26-2023 Glucose Ql (U) Normal mg/dl Normal [facility] Urine leukocyte esterase det ection by dipstickOrdered By: Diogo Garza on 05-26-2023 Leukocyte esterase Test strip Ql (U) 25 /ul Negative [facility] Urine pHOrdered By: Diogo lnyn on 05-26-2023 pH (U) 6.0 [pH] 5.0 - 8.0 [facility] Urine sediment bacteria coun t by microscopy (number/high power field)Ordered By: Diogo Garza on 05-26-2023 Bacteria LM.HPF (Urine sed) [#/Area] 0 /[HPF] None Seen [facility] Urine specific gravity measu rementOrdered By: Diogo Garza on 05-26-2023 Specific gravity (U) [Rel density] 1.015 1.002-1.030 [facility] Urobilinogen Auto test strip Ql (U)Ordered By: Diogo Garza on 05-26-2023 Urobilinogen Ql (U) Normal mg/dl Normal [facility] LUNG DIFFUSION CAPACITY (DANIELLE O)on 04-24-2023 [facility] SPIROMETRY BASELINE ONLYon 0 04-24-2023 DLCO (ml/min/mmHg) 16.19 ml/min/mmHg [facility] DLCO/VA (ml/min/mmHg/L) 3.57 ml/min/mmHg/L [facility] [id number]% PRE (L/S) 1.13 L/S [facility] FEV1 PRE (L) 2.03 L [facility] FEV1/FVC PRE (%) 70 % [facility] FVC PRE (L) 2.91 L [facility] PEF PRE (L/S) 5.37 L/S [facility] VA (L) 4.53 L [facility] Erythrocyte sedimentation ra teOrdered By: Uriel Caceres on 04-01-2023 ESR (Bld) [Velocity] 8 mm/h 0-30 [facility] No Panel InformationOrdered By: Uriel Caceres on 04-01-2023 CA 19-9 Antigen 41 U/mL 0- [facility] Comment on above: [facility] El ectrochemiluminescence Immunoassay(ECLIA)Values obtained with different assay methods or kits cannotbe used interchangeably. Results cannot be interpreted asabsolute evidence of the presence or absence of malignantdisease.Performed at: [facility] [id number] [place] [id number] Director: Lars Browne PhD, Phone: [phone] Serum or plasma C reactive p rotein measurement (mass/volume)Ordered By: Uriel Caceres on 04-01-2023 CRP [Mass/Vol] mg/L 0.0-3.0 [facility] Comment on above: C-Reactive Protein ( CRP) provides useful information for thediagnosis, therapy and monitoring of inflammatory processesand associated diseases. For the evaluation of Relative Riskfor Cardiovascular Disease, a High Sensitivity CRP (HSCRP)should be ordered. No Panel InformationOrdered By: Carrie Sheikh on 01-30-2023 C-Reactive Protein High Sensitivity 4.76 mg/L <3.00 [facility] Comment on above: Low Relative Risk of CVD <1.0 mg/L Average Relative Risk of CVD 1.0 - 3.0 mg/L High Relative Risk of CVD >3.0 mg/L [facility] 19-9 Antigen 44 U/mL 0- [facility] Comment on above: [facility] El ectrochemiluminescence Immunoassay(ECLIA)Values obtained with different assay methods or kits cannotbe used interchangeably. Results cannot be interpreted asabsolute evidence of the presence or absence of malignantdisease.Performed at: [id number] [place], [place] [id number] Director: Lars Browne PhD, Phone: [phone] EP PanelOrdered By: Carrie Sheikh on 01-08-2023 Gastrointestinal pathogens panel NICOLE+probe (Stl) [facility] Clostridium difficile detect ion by polymerase chain reactionOrdered By: Carrie Sheikh on 01-07-2023 C. difficile DNA NICOLE+probe Ql (Unsp spec) [facility] C. difficile DNA NICOLE+probe Ql (Unsp spec) [facility] No Panel InformationOrdered By: Carrie Sheikh on 01-07-2023 Stool Calprotectin <16 ug/g 0-120 [facility] Comment on above: Concentration Interp retation Follow-Up<16 - 50 ug/g Normal None>50 -120 ug/g Borderline Re-evaluate in 4-6 weeks >120 ug/g Abnormal Repeat as clinically indicatedPerformed at: [address] [id number] Director: Aung Araujo MD, Phone: [phone] Stool enteric pathogen panel by probe and target amplification methodOrdered By: Carrie Sheikh on 01-07-2023 Gastrointestinal pathogens panel NICOLE+probe (Stl) [facility] Stool lactoferrin detection by immunoassayOrdered By: Carrie Sheikh on 01-07-2023 Lactoferrin IA Ql (Stl) [facility] Lactoferrin IA Ql (Stl) [facility] Erythrocyte sedimentation ra teOrdered By: Carrie Sheikh on 01-04-2023 ESR (Bld) [Velocity] 9 mm/h 0-30 [facility] - Chemistry and C hemistry - challengeOrdered By: Carrie Sheikh on 01-04-2023 Lipase [Catalytic activity/Vol] 130 U/L 13-75 [facility] Comment on above: Please note:LIPASE r evised reference range effective 22. New Lipase methodology. Expected to produce lower values than the previous assay method. NEW Reference Range: 13 - 75 U/L No Panel InformationOrdered By: Carrie Sheikh on 01-04-2023 Immunoglobulin G4 44 mg/dL 2-96 [facility] Comment on above: Performed at: [address] [id number] Director: Lars Browne PhD, Phone: [phone] Serum IgG subclass 1 measure ment (mass/volume)Ordered By: Carrie Sheikh on 01-04-2023 IgG subclass 1 (S) [Mass/Vol] 338 mg/dL 248-810 [facility] Serum IgG subclass 2 measure ment (mass/volume)Ordered By: Carrie Sheikh on 01-04-2023 IgG subclass 2 (S) [Mass/Vol] 273 mg/dL 130-555 [facility] Serum IgG subclass 3 measure ment (mass/volume)Ordered By: Carrie Sheikh on 01-04-2023 IgG subclass 3 (S) [Mass/Vol] 32 mg/dL 15-102 [facility] Serum or plasma C reactive p rotein measurement (mass/volume)Ordered By: Carrie Sheikh on 01-04-2023 CRP [Mass/Vol] 3.34 mg/L 0.0-3.0 [facility] Comment on above: C-Reactive Protein ( CRP) provides useful information for thediagnosis, therapy and monitoring of inflammatory processesand associated diseases. For the evaluation of Relative Riskfor Cardiovascular Disease, a High Sensitivity CRP (HSCRP)should be ordered. Serum or plasma IgG measurem ent (mass/volume)Ordered By: Carrie Sheikh on 01-04-2023 IgG [Mass/Vol] 720 mg/dL [id number] [facility] Absolute lymphocyte countOrd ered By: Dr. Barrett on 12-29-2022 Lymphocytes Auto (Unsp spec) [#/Vol] 3.31 10*3/uL 0.83-4.51 [facility] Basophil percentageOrdered B y: Dr. Barrett on 12-29-2022 Basophils/100 WBC (Bld) 0.5 % 0-1 [facility] Bilirubin [Mass/Vol] 0.30 mg/dL 0.20-1.00 [facility] Comment on above: For patients on eltr ombopag therapy, use of Dimension [place] TBIL is not recommended. Chloride [Moles/Vol] 105 mmol/L 98-107 [facility] Eosinophils/100 WBC (Bld) 1.5 % 0-5 [facility] Glucose [Mass/Vol] 167 mg/dL 74-106 [facility] Comment on above: Fasting Glucose resu lt greater than or equal to 126 mg/dL suggests DIABETES MELLITUS per A.D.A. criteria. Neutrophils (Bld) [#/Vol] 5.2 10*3/uL 2.0-7.7 [facility] Neutrophils/100 WBC (Bld) 55.6 % 47-70 [facility] Potassium [Moles/Vol] 3.2 mmol/L 3.5-5.1 [facility] Protein [Mass/Vol] 7.5 g/dL 6.4-8.2 [facility] Sodium [Moles/Vol] 137 mmol/L 136-145 [facility] WBC (Bld) [#/Vol] 9.4 10*3/uL 4.4-11.0 [facility] Blood erythrocytes count (nu mber/volume)Ordered By: Dr. Barrett on 12-29-2022 RBC (Bld) [#/Vol] 4.94 10*6/uL 4.2-5.4 [facility] Blood hemoglobin measurement (mass/volume)Ordered By: Dr. Barrett on 12-29-2022 Hemoglobin (Bld) [Mass/Vol] 14.2 g/dL 12.0-15.0 [facility] Blood lymphocytes/100 leukoc ytesOrdered By: Dr. Barrett on 12-29-2022 Lymphocytes/100 WBC (Bld) 35.2 % 19-41 [facility] Blood monocytes/100 leukocyt esOrdered By: Dr. Barrett on 12-29-2022 Monocytes/100 WBC (Bld) 7.0 % 0-10 [facility] Blood platelet mean volumeOr dered By: Dr. Barrett on 12-29-2022 Platelet mean volume (Bld) [Entitic vol] 9.1 fL 6.2-12.0 [facility] Determination of erythrocyte mean corpuscular volume (MCV)Ordered By: Dr. Barrett on 12-29-2022 MCV (RBC) [Entitic vol] 84.2 fL 81-99 [facility] Hematocrit Auto (Bld) [Volum e fraction]Ordered By: Dr. Barrett on 12-29-2022 Hematocrit (Bld) [Volume fraction] 41.6 % 37-47 [facility] Laboratory - Chemistry and C hemistry - challengeOrdered By: Dr. Barrett on 12-29-2022 ALP [Catalytic activity/Vol] 78 U/L 45-117 [facility] ALT [Catalytic activity/Vol] 39 U/L 13-56 [facility] CO2 [Moles/Vol] 25.0 mmol/L 21.0-32.0 [facility] Globulin (S) [Mass/Vol] 3.8 g/dL 2.2-4.2 [facility] Urea nitrogen/Creatinine [Mass ratio] 17.3 mg/mg 10-20 [facility] Laboratory - Hematology and Cell countsOrdered By: Dr. Barrett on 12-29-2022 Erythrocyte distribution width (RBC) [Entitic vol] 39.8 fL 35.1-43.9 [facility] Erythrocyte distribution width (RBC) [Ratio] 13.1 % 11.6-14.6 [facility] Immature granulocytes/100 WBC (Bld) 0.200 % 0.0-0.9 [facility] Comment on above: IG% - Immature Granu locytes (promyelocytes, myelocytes and metamyelocytes) > 1% indicates that a LEFT SHIFT is Present. MCH (RBC) [Entitic mass] 28.7 pg 27.0-32.0 [facility] Nucleated RBC/100 WBC (Bld) [Ratio] 0 % 0-5 [facility] MCHC Auto (RBC) [Mass/Vol]Or dered By: Dr. Barrett on 12-29-2022 MCHC (RBC) [Mass/Vol] 34.1 g/dL 32-36 [facility] No Panel InformationOrdered By: Dr. Barrett on 12-29-2022 Troponin I High Sensitivity 5 pg/mL 3.0-54.0 [facility] Comment on above: Please Note: New Evelyn t Units and Gender Specific Reference Ranges. For more information see Policy Stat Procedure [place] High Sensitivity Troponin (TNIH) and attachments. Estimated Creatinine Clearance Calc 94.15 ml/min [facility] Estimated GFR (MDRD) Amer 136 mL/min >60 [facility] Comment on above: GFR Calc Estimated GFR (MDRD) Non-Af Amer 112 mL/min >60 [facility] Comment on above: Non- GFR Calc Platelets bldOrdered By: Dr. Barrett on 12-29-2022 Platelets (Bld) [#/Vol] 329 10*3/uL 150-450 [facility] Serum or plasma albumin pradip urement (mass/volume)Ordered By: Dr. Barrett on 12-29-2022 Albumin [Mass/Vol] 3.7 g/dL 3.2-5.0 [facility] Serum or plasma albumin/glob ulin mass ratioOrdered By: Dr. Barrett on 12-29-2022 Albumin/Globulin [Mass ratio] 1.0 {ratio} 0.9-2.4 [facility] Serum or plasma calcium pradip urement (mass/volume)Ordered By: Dr. Barrett on 12-29-2022 Calcium [Mass/Vol] 8.6 mg/dL 8.5-10.1 [facility] Serum or plasma creatinine m easurement (mass/volume)Ordered By: Dr. Barrett on 12-29-2022 Creatinine [Mass/Vol] 0.58 mg/dL 0.55-1.02 [facility] Comment on above: The validity of the calculated GFR & GFRAA in patients over 70 years has not been determined. Clinical correlation is essential. Serum or plasma urea nitroge n measurement (mass/volume)Ordered By: Dr. Barrett on 12-29-2022 Urea nitrogen [Mass/Vol] 10 mg/dL 7-18 [facility] Thin prep Papanicolaou smear with manual screeningOrdered By: Dr. Barrett on 12-29-2022 Thin prep Papanicolaou smear with manual screening 35 U/L 15-37 [facility] Thin prep Papanicolaou smear with manual screening 7 5-15 [facility] ALBUMIN/CREAT RATIO RND URon 12-20-2022 Albumin DL <= 20 mg/L (U) [Mass/Vol] [facility] Albumin/Creatinine (U) [Mass ratio] <30 mg/g [facility] Creatinine (U) [Mass/Vol] 63.1 mg/dL 20.0 - 300.0 mg/dL [facility] [id number] BLon 12-19 Alpha 1 antitrypsin [Mass/Vol] 158 mg/dL 90 - 200 mg/dL [facility] CBC panel Auto (Bld)on 12-19 Erythrocyte distribution width (RBC) [Ratio] 13.3 % 11.5 - 15.0 % [facility] Hematocrit (Bld) [Volume fraction] 47.7 % High 36.0 - 46.0 % [facility] Hemoglobin (Bld) [Mass/Vol] 15.6 g/dL High 11.5 - 15.5 g/dL [facility] MCH (RBC) [Entitic mass] 29.0 pg 26.0 - 34.0 pg [facility] MCHC (RBC) [Mass/Vol] 32.7 g/dL 30.5 - 36.0 g/dL [facility] MCV (RBC) [Entitic vol] 88.7 fL 80.0 - 100.0 fL [facility] Nucleated RBC (Bld) [#/Vol] <0.01 k/uL [facility] Platelet mean volume (Bld) [Entitic vol] 9.7 fL 9.0 - 12.7 fL [facility] Platelets (Bld) [#/Vol] 306 10*3/uL 150 - 400 k/uL [facility] RBC (Bld) [#/Vol] 5.38 10*6/uL High 3.90 - 5.2 0 m/uL [facility] WBC (Bld) [#/Vol] 9.10 10*3/uL 3.70 - 11. 00 k/uL [facility] Comprehensive metabolic 2000 panelon 12-19-2022 Albumin [Mass/Vol] 4.2 g/dL 3.9 - 4.9 g/dL [facility] ALP [Catalytic activity/Vol] 55 U/L 34 - 123 U/L [facility] ALT [Catalytic activity/Vol] 18 U/L 7 - 38 U/L [facility] Anion gap [Moles/Vol] 14 mmol/L 9 - 18 mmol/L [facility] AST [Catalytic activity/Vol] 27 U/L 13 - 35 U/L [facility] Bilirubin [Mass/Vol] 0.2 mg/dL 0.2 - 1 .3 mg/dL [facility] Calcium [Mass/Vol] 8.9 mg/dL 8.5 - 10. 2 mg/dL [facility] Chloride [Moles/Vol] 105 mmol/L 97 - 10 5 mmol/L [facility] CO2 [Moles/Vol] 21 mmol/L Low 22 - 30 mmol/L [facility] Creatinine [Mass/Vol] 0.49 mg/dL Low 0.58 - 0.96 mg/dL [facility] Estimated Glomerular Filtration Rate 107 mL/min/1.73m >=60 mL/min/1.73m [facility] Glucose [Mass/Vol] 178 mg/dL High 74 - 99 mg/dL [facility] Potassium [Moles/Vol] 3.5 mmol/L Low 3.7 - 5.1 mmol/L [facility] Protein [Mass/Vol] 7.0 g/dL 6.3 - 8.0 g/dL [facility] Sodium [Moles/Vol] 140 mmol/L 136 - 144 mmol/L [facility] Urea nitrogen [Mass/Vol] 11 mg/dL 7 - 21 mg/dL [facility] HbA1c (Bld)on 12-19-2022 Average glucose Estimated from glycated hemoglobin (Bld) [Mass/Vol] 180 mg/dL [facility] HbA1c (Bld) [Mass fraction] 7.9 % High 4.3 - 5.6 % [facility] Lipid 1996 panelon Cholesterol [Mass/Vol] 153 mg/dL <200 mg/dL [facility] Cholesterol in HDL [Mass/Vol] 26 mg/dL Low >39 mg/dL [facility] Cholesterol in LDL [Mass/Vol] 60 mg/dL <100 mg/dL [facility] Cholesterol in LDL/Cholesterol in HDL [Mass ratio] 2.31 {ratio} <2.54 [facility] Cholesterol in VLDL [Mass/Vol] 67 mg/dL High <30 mg/dL [facility] Cholesterol non HDL [Mass/Vol] 127 mg/dL <130 mg/dL [facility] Cholesterol.total/Chol esterol in HDL [Mass ratio] 5.88 {ratio} High <5.10 [facility] Fasting Time 13 hrs [facility] Triglyceride [Mass/Vol] 334 mg/dL High <150 mg/dL [facility] XR CHEST 2V FRONTAL/LATon [facility] XR Chest PA and Lateralon IMPRESSION: Peribronchial cuffing which may be seen with small airways inflammation/bronchitis Mild right infrahilar opacity, atelectasis versus bronchopneumonia in the appropriate clinical setting [employer] Operator: PSCB Transcribe Date/Time: Nov 21 2022 4:50P Dictated by : JONATHAN SUAREZ MD This examination was interpreted and the report reviewed and electronically signed by: JONATHAN SUAREZ MD on Nov 21 2022 4:52PM [facility] DIVISION OF RADIOLOGY * * *Final [...] the thoracic spine. DIVISION OF RADIOLOGY Provider, [facility] - 11/21/2022 * * *Final Report* [...] versus bronchopneumonia in the appropriate clinical setting [employer] Operator: OLIVE Transcribe Date/Time: Nov 21 2022 4:50P Dictated by : JONATHAN SUAREZ MD This examination was interpreted and the report reviewed and electronically signed by: JONATHAN SUAREZ MD on Nov 21 2022 4:52PM EST [facility] Radiology Study observation (narrative) [facility] XR Chest PA and LateralOrder ed By: Ccf Provider on 11-21-2022 [facility] DXA-AXIAL SKELETONon 023 LOWEST T-SCORE 0.5 [facility] MRI LUMBAR SPINE WO IVCONon 09-27-2022 [facility] JAVIER SCREENINGon 09-14-2022 [facility] No Panel Informationon 07-16 [facility] Absolute lymphocyte countOrd ered By: Dr. Castro on 07-02-2022 Lymphocytes Auto (Unsp spec) [#/Vol] 3.35 10*3/uL 0.83-4.51 [facility] Basophil percentageOrdered B y: Dr. Castro on 07-02-2022 Basophils/100 WBC (Bld) 0.9 % 0-1 [facility] Chloride [Moles/Vol] 100 mmol/L 98-107 [facility] Eosinophils/100 WBC (Bld) 1.0 % 0-5 [facility] Glucose [Mass/Vol] 332 mg/dL 74-106 [facility] Comment on above: Glucose result great er than or equal to 200 mg/dLsuggests DIABETES MELLITUS per A.D.A. criteria. Neutrophils (Bld) [#/Vol] 9.3 10*3/uL 2.0-7.7 [facility] Neutrophils/100 WBC (Bld) 69.7 % 47-70 [facility] Potassium [Moles/Vol] 3.9 mmol/L 3.5-5.1 [facility] Sodium [Moles/Vol] 135 mmol/L 136-145 [facility] WBC (Bld) [#/Vol] 13.4 10*3/uL 4.4-11.0 [facility] Basophil percentage 0 SEEN /hpf 0-5 [facility] Bilirubin Test strip Ql (U)O rdered By: Dr. Castro on 07-02-2022 Bilirubin Ql (U) Negative Negative [facility] Blood erythrocytes count (nu mber/volume)Ordered By: Dr. Castro on 07-02-2022 RBC (Bld) [#/Vol] 5.45 10*6/uL 4.2-5.4 [facility] Blood hemoglobin measurement (mass/volume)Ordered By: Dr. Castro on 07-02-2022 Hemoglobin (Bld) [Mass/Vol] 15.7 g/dL 12.0-15.0 [facility] Blood lymphocytes/100 leukoc ytesOrdered By: Dr. Castro on 07-02-2022 Lymphocytes/100 WBC (Bld) 25.0 % 19-41 [facility] Blood monocytes/100 leukocyt esOrdered By: Dr. Castro on 07-02-2022 Monocytes/100 WBC (Bld) 2.5 % 0-10 [facility] Blood platelet mean volumeOr dered By: Dr. Castro on 07-02-2022 Platelet mean volume (Bld) [Entitic vol] 9.8 fL 6.2-12.0 [facility] Determination of erythrocyte mean corpuscular volume (MCV)Ordered By: Dr. Castro on 07-02-2022 MCV (RBC) [Entitic vol] 84.8 fL 81-99 [facility] Glucose Glucometer (dC) [M ass/Vol]Ordered By: Dr. Castro on 07-02-2022 Glucose [Mass/Vol] 306 mg/dL 74-106 [facility] Comment on above: MANAGEMENT OF PATIEN T CARE PER NURSING PROTOCOL Hematocrit Auto (Bld) [Volum e fraction]Ordered By: Dr. Castro on 07-02-2022 Hematocrit (Bld) [Volume fraction] 46.2 % 37-47 [facility] Ketones Test strip Ql (U)Ord ered By: Dr. Castro on 07-02-2022 Ketones Ql (U) Negative Negative [facility] Laboratory - Chemistry and C hemistry - challengeOrdered By: Dr. Castro on 07-02-2022 CO2 [Moles/Vol] 29.0 mmol/L 21.0-32.0 [facility] Urea nitrogen/Creatinine [Mass ratio] 21.5 mg/mg 10-20 [facility] Laboratory - Hematology and Cell countsOrdered By: Dr. Castro on 07-02-2022 Erythrocyte distribution width (RBC) [Entitic vol] 38.7 fL 35.1-43.9 [facility] Erythrocyte distribution width (RBC) [Ratio] 12.8 % 11.6-14.6 [facility] Immature granulocytes/100 WBC (Bld) 0.900 % 0.0-0.9 [facility] Comment on above: IG% - Immature Granu locytes (promyelocytes, myelocytes and metamyelocytes) > 1% indicates that a LEFT SHIFT is Present. MCH (RBC) [Entitic mass] 28.8 pg 27.0-32.0 [facility] Nucleated RBC/100 WBC (Bld) [Ratio] 0 % 0-5 [facility] MCHC Auto (RBC) [Mass/Vol]Or dered By: Dr. Castro on 07-02-2022 MCHC (RBC) [Mass/Vol] 34.0 g/dL 32-36 [facility] Mucus LM Ql (Urine sed)Order ed By: Dr. Castro on 07-02-2022 Mucus Ql (Urine sed) 0 SEEN /hpf [facility] Nitrite Test strip Ql (U)Ord ered By: Dr. Castro on 07-02-2022 Nitrite Ql (U) Negative Negative [facility] No Panel InformationOrdered By: Dr. Castro on 07-02-2022 Estimated Creatinine Clearance Calc 69.12 ml/min [facility] Estimated GFR (MDRD) Amer 95 mL/min >60 [facility] Comment on above: GFR Calc Estimated GFR (MDRD) Non-Af Amer 78 mL/min >60 [facility] Comment on above: Non- GFR Calc Platelets bldOrdered By: Dr. Castro on 07-02-2022 Platelets (Bld) [#/Vol] 362 10*3/uL 150-450 [facility] Serum or plasma calcium pradip urement (mass/volume)Ordered By: Dr. Castro on 07-02-2022 Calcium [Mass/Vol] 8.8 mg/dL 8.5-10.1 [facility] Serum or plasma creatinine m easurement (mass/volume)Ordered By: Dr. Castro on 07-02-2022 Creatinine [Mass/Vol] 0.79 mg/dL 0.55-1.02 [facility] Comment on above: The validity of the calculated GFR & GFRAA in patients over 70 years has not been determined. Clinical correlation is essential. Serum or plasma urea nitroge n measurement (mass/volume)Ordered By: Dr. Castro on 07-02-2022 Urea nitrogen [Mass/Vol] 17 mg/dL 7-18 [facility] Squamous epithelial cells de tection in urine sediment by light microscopyOrdered By: Dr. Castro on 07-02-2022 Epithelial cells.squamous LM Ql (Urine sed) 0-5 SEEN /hpf 5-10 [facility] Thin prep Papanicolaou smear with manual screeningOrdered By: Dr. Castro on 07-02-2022 Thin prep Papanicolaou smear with manual screening 6 - [facility] UA DIP, URINE (POC)on 2021 BILIRUBIN UA (POCT) Negative Negative [facility] CLARITY UA (POCT) Clear [facility] COLOR UA (POCT) Yellow [facility] GLUCOSE UA (POCT) 100 mg/dL Abnormal Negative mg/dL [facility] HEMOGLOBIN/BLOOD UA (POCT) Negative Negative [facility] KETONE UA (POCT) Negative Negative mg/dL [facility] LEUKOCYTES UA (POCT) Negative Negative [facility] NITRITE UA (POCT) Negative Negative [facility] PH UA (POCT) 5.5 4.5 - 8.0 [facility] SPECIFIC GRAVITY UA (POCT) 1.025 1.005 - 1.030 [facility] UROBILINOGEN UA (POCT) 0.2 E.U./dL Leonie l E.U./dL [facility] Urine blood detectionOrdered By: Dr. Castro on 07-02-2022 RBC Ql (U) Negative Negative [facility] RBC Ql (U) 0 SEEN /hpf 0-5 [facility] Urine clarityOrdered By: Dr. Castro on 07-02-2022 Clarity (U) Clear Clear [facility] Urine color determinationOrd ered By: Dr. Castro on 07-02-2022 Color (U) Yellow Yellow [facility] Urine glucose detectionOrder ed By: Dr. Castro on 07-02-2022 Glucose Ql (U) Normal mg/dl Normal [facility] Urine leukocyte esterase det ection by dipstickOrdered By: Dr. Castro on 07-02-2022 Leukocyte esterase Test strip Ql (U) Negative Negative [facility] Urine pHOrdered By: Dr. Houston morales on 07-02-2022 pH (U) 6.0 [pH] 5.0 - 8.0 [facility] Urine protein assay by test strip, semi-quantitativeOrdered By: Dr. Castro on 07-02-2022 Protein Ql (U) Negative Negative [facility] Urine sediment bacteria coun t by microscopy (number/high power field)Ordered By: Dr. Castro on 07-02-2022 Bacteria LM.HPF (Urine sed) [#/Area] RARE /hpf None Seen [facility] Urine specific gravity measu rementOrdered By: Dr. Castro on 07-02-2022 Specific gravity (U) [Rel density] 1.010 1.002-1.030 [facility] Urobilinogen Auto test strip Ql (U)Ordered By: Dr. Castro on 07-02-2022 Urobilinogen Ql (U) Normal mg/dl Normal [facility] XR Chest PA and Lateralon IMPRESSION: No acute radiographic abnormality. [employer] Operator: PSCB Transcribe Date/Time: Jun 27 2022 4:11P Dictated by : JANY POST MD This examination was interpreted and the report reviewed and electronically signed by: JANY POST MD on Jun 27 2022 4:12PM [facility] DIVISION OF RADIOLOGY * * *Final [...] throughout the spine DIVISION OF RADIOLOGY [facility] * * *Final Report* [...] spine IMPRESSION IMPRESSION: No acute radiographic abnormality. [employer] Operator: OLIVE Transcribe Date/Time: Jun 27 2022 4:11P Dictated by : JANY POST MD This examination was interpreted and the report reviewed and electronically signed by: JANY POST MD on Jun 27 2022 4:12PM EST [facility] Radiology Study observation (narrative) [facility] XR Chest PA and LateralOrder ed By: Ccf Provider on 06-27-2022 [facility] UA DIP, URINE (POC)on 2021 BILIRUBIN UA (POCT) Negative Negative [facility] CLARITY UA (POCT) Clear [facility] COLOR UA (POCT) Yellow [facility] GLUCOSE UA (POCT) Negative Negative mg/dL [facility] HEMOGLOBIN/BLOOD UA (POCT) Negative Negative [facility] KETONE UA (POCT) Negative Negative mg/dL [facility] LEUKOCYTES UA (POCT) Trace Abnormal Negative [facility] NITRITE UA (POCT) Negative Negative [facility] PH UA (POCT) 5.0 4.5 - 8.0 [facility] Protein Ql (U) Negative Negative mg/dL [facility] SPECIFIC GRAVITY UA (POCT) 1.015 1.005 - 1.030 [facility] UROBILINOGEN UA (POCT) 0.2 E.U./dL Leonie l E.U./dL [facility] No Panel Informationon 06-20 Endomysial IgA Antibody Negative Negative [facility] Work Phone: Serum IgA measurement (units /volume)on 06-20-2022 IgA Qn (S) 234 mg/dL 87-352 [facility] Work Phone: Comment on above: Performed at: [facility] [place], [place] [id number] Director: Lars Browne PhD, Phone: [phone] Serum or plasma C reactive p rotein measurement (mass/volume)on 06-20-2022 CRP [Mass/Vol] mg/L 0.0-3.0 [facility] Work Phone: Comment on above: C-Reactive Protein ( CRP) provides useful information for thediagnosis, therapy and monitoring of inflammatory processesand associated diseases. For the evaluation of Relative Riskfor Cardiovascular Disease, a High Sensitivity CRP (HSCRP)should be ordered. Serum tissue transglutaminas e IgA antibody assay (units/volume)on 06-20-2022 tTG IgA Qn (S) <2 U/mL 0-3 [facility] Work Phone: Comment on above: Negative 0 - 3 Weak Positive 4 - 10 Positive >10 Tissue Transglutaminase (tTG) has been identified as the endomysial antigen. Studies have demonstr- ated that endomysial IgA antibodies have over 99% specificity for gluten sensitive enteropathy. HbA1c (Bld)on 03-29-2022 Average glucose Estimated from glycated hemoglobin (Bld) [Mass/Vol] 169 mg/dL [facility] HbA1c (Bld) [Mass fraction] 7.5 % High 4.3 - 5.6 % [facility] XR Chest PA and Lateralon IMPRESSION: No acute findings. [employer] Operator: PSCB Transcribe Date/Time: Mar 13 2022 12:37P [...] changes. [id number]_ USE_DIVISIO N OF RADIOLOGY Provider, Mariam Mims [place] - 03/13/2022 * * *Final Report* * [...] degenerative changes. IMPRESSION IMPRESSION: No acute findings. [employer] Operator: PSCB Transcribe Date/Time: Mar 13 2022 12:37P Dictated by : CLAUDIA WILSON MD This examination was interpreted and the report reviewed and electronically signed by: CLAUDIA WILSON MD on Mar 13 2022 12:44PM EST [facility] Radiology Study observation (narrative) [facility] XR Chest PA and LateralOrder ed By: Ccf Provider on 03-13-2022 [facility] GLUCOSE, BLOOD (POC)on 02-22 Glucose [Mass/Vol] 133 mg/dL Abnormal 74 - 99 mg/dL [facility] SURGICAL PATHOLOGYon 022 CASE REPORT Normal [facility] Comment on above: Order Comment: Speci men Type: TISSUE SPECIMEN Ordering Facility: [facility] Address: [address] [place] [address] Result Comment: Surg ica Pathology Report Case: [id number] Authorizing Provider: Patti Manrique MD Collected: 02/22/2022 12:49 PM Ordering Location: [facility] Received: 02/22/2022 03:59 PM Pathologist: Elaine Asencio MD Specimens: A) - ANTRUM (STOMACH) BIOPSY B) - ESOPHAGOGASTRIC JUNCTION BIOPSY C) - TRANSVERSE COLON POLYP Performed By: #### S #### [facility] CLIA [id number] [address] [place] [address] FINAL DIAGNOSIS Normal [facility] Comment on above: Order Comment: Speci shasta Type: TISSUE SPECIMEN Ordering Facility: [facility] Address: [address] [place] [address] Result Comment: A. G astric antrum, biopsies: - Benign gastric mucosa, negative for inflammatory infiltrates. B. Esophagogastric junction, biopsies: - Mild active inflammation involving esophageal squamous epithelium and gastric-type glandular mucosa. Negative for Molina's esophagus. C. Transverse colon, biopsy: - Tubular adenoma. Performed By: #### S #### [facility] CLIA [id number] [address] FINAL PERFORMING LAB Normal [facility] Comment on above: Order Comment: Specjesus [place] Type: TISSUE SPECIMEN Ordering Facility: [facility] Address: [address] [place] [address] Result Comment: Diag nostic interpretation performed at [facility], [address] [place] [address] CLIA# [id number] [employer] Driller: Rosendo Powell M.D. Performed By: #### S #### [facility] CLIA [id number] [address] GROSS DESCRIPTION Normal [facility] Comment on above: Order Comment: [place] Type: TISSUE SPECIMEN Ordering Facility: [facility] Address: [address] [place] [address], [place] [address] Result Comment: A. A NTRUM (STOMACH) BIOPSY. [...] in one cassette. Gross examination performed at [facility], [address] [place] [address] RSA February 23, 2022 12:47 PM Performed By: #### S #### [facility] CLIA [id number] [address] [place] [address] [place] Atypical perinuclear antineu trophil cytoplasmic antibodies measurementon 01-15-2022 Neutrophil cytoplasmic Ab.perinuclear.atypica l IF (S) [Titer] <1:20 titer Neg:<1:20 [facility] Work Phone: Comment on above: The atypical pANCA p attern has been observed in asignificant percentage of patients with ulcerative colitis,primary sclerosing cholangitis and autoimmune hepatitis. Basophil percentageon 2021 Ammonia (P) [Moles/Vol] 23.0 umol/L 11-32 [facility] Work Phone: Cholesterol [Mass/Vol] 134 mg/dL <200 [facility] Work Phone: Comment on above: <200 mg/dL Desirable 200-240 mg/dL Borderline >240 mg/dL High Risk Triglyceride [Mass/Vol] 285 mg/dL [facility] Work Phone: Comment on above: The drugs N-Acetylcy steine and Metamizole may falsely depress this assay.Serum Triglycerides Reference Interval Normal <150 mg/dL Borderline high 150 - 199 mg/dL High 200 - 499 mg/dL Very High > or = 500 mg/dL HIV 1 and HIV-2 antibody ass ay with HIV-1 p24 antigen detectionon 01-15-2022 HIV 1+2 Ab+HIV1 p24 Ag IA Ql Non-Reactive Nonreactive [facility] Work Phone: INR in Blood by Coagulation assayon 01-15-2022 INR Coag (Bld) [Relative time] 1.0 {INR} [facility] Work Phone: Laboratory - Chemistry and C hemistry - challengeon 01-15-2022 CK [Catalytic activity/Vol] 382 U/L 26-192 [facility] Work Phone: Laboratory - Coagulationon 0 01-15-2022 PT Coag (PPP) [Time] 12.8 s 11.7-14.9 [facility] Work Phone: No Panel Informationon 01-15 Ceruloplasmin 29.3 mg/dL [facility] Work Phone: Haptoglobin 148 mg/dL [facility] Work Phone: Comment on above: Performed at: [address] [id number] Director: Lars Browne PhD, Phone: [phone] at: [facility] Lab[address] [id number] Director: Aung Araujo MD, Phone: [phone] Hepatitis A IgM Antibody Negative Negative [facility] Work Phone: Hepatitis B Core IgM Antibody Negative Negative [facility] Work Phone: Hepatitis C Antibody (EIA) <0.1 s/co ratio [facility] Work Phone: Hepatitis C Antibody Comment Comment [facility] Work Phone: Comment on above: NegativeNot infected with HCV, unless recent infection issuspected or other evidence exists to indicate HCVinfection. Serum classic neutrophil cyt oplasmic antibody assay (units/volume)on 01-15-2022 Neutrophil cytoplasmic Ab.classic Qn (S) <1:20 titer Neg:<1:20 [facility] Work Phone: Serum mitochondria antibody detectionon 01-15-2022 Mitochondria Ab Ql (S) <20.0 Units W [facility] Work Phone: Comment on above: Negative 0.0 - 20.0 Equivocal 20.1 - 24.9 Positive >24.9Mitochondrial (M2) Antibodies are found in 90-96% ofpatients with primary biliary cirrhosis.Performed at: [facility] [address] [id number] Director: Lars Browne PhD, Phone: [phone] Serum or plasma actin IgG an tibody assay (units/volume)on 01-15-2022 Actin IgG Qn 3 Units [facility] Work Phone: Comment on above: Negative 0 - 19 Weak positive 20 - 30 Moderate to strong positive >30 Actin Antibodies are found in 52-85% of patients with autoimmune hepatitis or chronic active hepatitis and in 22% of patients with primary biliary cirrhosis. Serum or plasma ppltv-0-cugl protein tumor marker measurement (units/volume)on 01-15-2022 AFP.tumor marker Qn 3.8 ng/mL [facility] Work Phone: Comment on above: [facility] El ectrochemiluminescence Immunoassay(ECLIA)Values obtained with different assay methods or kits cannotbe used interchangeably. Results cannot be interpreted asabsolute evidence of the presence or absence of malignantdisease.This test is not interpretable in females. Serum or plasma angiotensin converting enzyme measurement (enzymatic activity/volume)on 01-15-2022 Angiotensin converting enzyme [Catalytic activity/Vol] 21 U/L [facility] Work Phone: Serum or plasma cholesterol in HDL measurement (mass/volume)on 01-15-2022 Cholesterol in HDL [Mass/Vol] 26 mg/dL [facility] Work Phone: Comment on above: The drugs N-Acetylcy steine and Metamizole may falsely depress this assay. Reference Range HDL <40 mg/dL Low HDL Cholesterol HDL >or= 60 mg/dL High HDL Cholesterol Serum or plasma cholesterol in VLDL measurement (mass/volume)on 01-15-2022 Cholesterol in VLDL [Mass/Vol] 57 mg/dL 5-40 [facility] Work Phone: Serum or plasma ferritin ruchi surement (mass/volume)on 01-15-2022 Ferritin [Mass/Vol] 76 ng/mL 8-252 [facility] Work Phone: Serum or plasma hepatitis B virus surface antigen detection by immunoassayon 01-15-2022 HBV surface Ag IA Ql Negative Negative [facility] Work Phone: Serum or plasma low density lipoprotein (LDL) cholesterol measurement (mass/volume)on 01-15-2022 Cholesterol in LDL [Mass/Vol] 51 mg/dL 0-130 [facility] Work Phone: Serum perinuclear neutrophil cytoplasmic antibody titer by immunofluorescenceon 01-15-2022 Neutrophil cytoplasmic Ab.perinuclear IF (S) [Titer] <1:20 titer Neg:<1:20 [facility] Work Phone: Comment on above: The presence of posi tive fluorescence exhibiting P-ANCA orC-ANCA patterns alone is not specific for the diagnosis ofWegener's Granulomatosis (WG) or microscopic polyangiitis.Decisions about treatment should not be based solely onANCA IFA results. The [employer] ANCA Group Consensusrecommends follow up testing of positive sera with both ND-3 and MPO-ANCA enzyme immunoassays. As many as 5% serumsamples are positive only by EIA. Ref. AM J Clin Mgwegl8232;111:507-513. Thin prep Papanicolaou smear with manual screeningon 01-15-2022 Thin prep Papanicolaou smear with manual screening 160 ug/dL [facility] Work Phone: Comment on above: Detection Limit = 5 Whole blood hemoglobin A1c/t otal hemoglobin ratio (mass fraction)on 01-15-2022 HbA1c (Bld) [Mass fraction] 7.1 % 3.8-5.6 [facility] Work Phone: Comment on above: Normal < 5.7 % Predi abetic 5.7 - 6.4 % Diabetic >or= 6.5 % Please note range changes. URINE CULTUREon 01-11-2022 Bacteria identified Cx Nom (U) >=100,000 CFU/ml Klebsiella pneumoniae Abnormal [facility] Urinalysis complete panel (U )on 01-10-2022 Bilirubin Ql (U) Negative Negative [facility] Clarity (Unsp spec) Clear Clear [facility] Color (U) Straw Yellow [facility] Epithelial cells LM.HPF (Urine sed) [#/Area] Few [facility] Glucose Test strip (U) [Mass/Vol] Negative Negative [facility] Hemoglobin Ql (U) 2+ Abnormal Negative [facility] Ketones Ql (U) Negative Negative [facility] Leukocyte esterase Test strip Ql (U) 1+ Abnormal Negative [facility] Nitrite Ql (U) Negative Negative [facility] pH (U) 6.0 [pH] 5.0 - 8.0 [facility] Protein (U) [Mass/Vol] Negative Negative [facility] RBC LM.HPF (Urine sed) [#/Area] /[HPF] Abnormal 0-3 /HPF [facility] Specific gravity (U) [Rel density] 1.009 1.005 - 1.030 [facility] Urobilinogen Ql (U) Negative Negative [facility] WBC LM.HPF (Urine sed) [#/Area] 0-5 /HPF 0-5 /HPF [facility] UA DIP, URINE (POC)on 2021 BILIRUBIN UA (POCT) Negative Negative [facility] CLARITY UA (POCT) Clear [facility] COLOR UA (POCT) Yellow [facility] GLUCOSE UA (POCT) Negative Negative mg/dL [facility] HEMOGLOBIN/BLOOD UA (POCT) Large Abnormal Negative [facility] KETONE UA (POCT) Negative Negative mg/dL [facility] LEUKOCYTES UA (POCT) Trace Abnormal Negative [facility] NITRITE UA (POCT) Negative Negative [facility] PH UA (POCT) 5.0 4.5 - 8.0 [facility] Protein Ql (U) Negative Negative mg/dL [facility] SPECIFIC GRAVITY UA (POCT) 1.020 1.005 - 1.030 [facility] UROBILINOGEN UA (POCT) 0.2 E.U./dL Leonie l E.U./dL [facility] URINE CULTUREon 01-09-2022 Bacteria identified Cx Nom (U) Invalid Interpretation Code [facility] Giardia lamblia ag stool EIA on 12-15-2021 G. lamblia Ag IA Ql (Stl) Negative Negative [facility] Work Phone: Comment on above: Performed at: [address] [id number] Director: Lars Browne PhD, Phone: [phone] Absolute lymphocyte counton 12-14-2021 Lymphocytes Auto (Unsp spec) [#/Vol] 3.94 10*3/uL 0.83-4.51 [facility] Work Phone: Basophil percentageon 2021 Basophil percentage < 0.2 AI [facility] Work Phone: Basophils/100 WBC (Bld) 0.6 % 0-1 [facility] Work Phone: Bilirubin [Mass/Vol] 0.20 mg/dL 0.20-1.00 [facility] Work Phone: Comment on above: For patients on eltr ombopag therapy, use of Dimension [place] TBIL is not recommended. Chloride [Moles/Vol] 108 mmol/L 98-107 [facility] Work Phone: Eosinophils/100 WBC (Bld) 2.6 % 0-5 [facility] Work Phone: Glucose [Mass/Vol] 174 mg/dL 74-106 [facility] Work Phone: Comment on above: Fasting Glucose resu lt greater than or equal to 126 mg/dL suggests DIABETES MELLITUS per A.D.A. criteria. Neutrophils (Bld) [#/Vol] 4.8 10*3/uL 2.0-7.7 [facility] Work Phone: Neutrophils/100 WBC (Bld) 49.5 % 47-70 [facility] Work Phone: Potassium [Moles/Vol] 4.1 mmol/L 3.5-5.1 [facility] Work Phone: Protein [Mass/Vol] 7.7 g/dL 6.4-8.2 [facility] Work Phone: Sodium [Moles/Vol] 137 mmol/L 136-145 [facility] Work Phone: WBC (Bld) [#/Vol] 9.8 10*3/uL 4.4-11.0 [facility] Work Phone: Blood erythrocytes count (nu mber/volume)on 12-14-2021 RBC (Bld) [#/Vol] 5.29 10*6/uL 4.2-5.4 [facility]: Blood hemoglobin measurement (mass/volume)on 12-14-2021 Hemoglobin (Bld) [Mass/Vol] 15.6 g/dL 12.0-15.0 [facility] Work Phone: [phone] Blood lymphocytes/100 leukoc yteson 12-14-2021 Lymphocytes/100 WBC (Bld) 40.4 % 19-41 [facility] Work Phone: Blood monocytes/100 leukocyt eson 12-14-2021 Monocytes/100 WBC (Bld) 6.6 % 0-10 [facility] Work Phone: Blood platelet mean volumeon 12-14-2021 Platelet mean volume (Bld) [Entitic vol] 9.8 fL 6.2-12.0 [facility] Work Phone: Determination of erythrocyte mean corpuscular volume (MCV)on 12-14-2021 MCV (RBC) [Entitic vol] 86.0 fL 81-99 [facility] Work Phone: Direct bilirubinon 2 Bilirubin.direct [Mass/Vol] 0.07 mg/dL 0.00-0.30 [facility] Work Phone: Erythrocyte sedimentation ra lore 12-14-2021 ESR (Bld) [Velocity] 8 mm/h 0-30 [facility] Work Phone: Hematocrit Auto (Bld) [Volum e fraction]on 12-14-2021 Hematocrit (Bld) [Volume fraction] 45.5 % 37-47 [facility] Work Phone: Laboratory - Chemistry and C hemistry - challengeon 12-14-2021 ALP [Catalytic activity/Vol] 80 U/L 45-117 [facility] Work Phone: ALT [Catalytic activity/Vol] 27 U/L 13-56 [facility] Work Phone: CO2 [Moles/Vol] 24.0 mmol/L 21.0-32.0 [facility] Work Phone: Globulin (S) [Mass/Vol] 3.9 g/dL 2.2-4.2 [facility] Work Phone: Urea nitrogen/Creatinine [Mass ratio] 26.7 mg/mg 10-20 [facility] Work Phone: Laboratory - Hematology and Cell countson 12-14-2021 Erythrocyte distribution width (RBC) [Entitic vol] 41.4 fL 35.1-43.9 [facility] Work Phone: Erythrocyte distribution width (RBC) [Ratio] 13.4 % 11.6-14.6 [facility] Work Phone: Immature granulocytes/100 WBC (Bld) 0.300 % 0.0-0.9 [facility] Work Phone: Comment on above: IG% - Immature Granu locytes (promyelocytes, myelocytes and metamyelocytes) > 1% indicates that a LEFT SHIFT is Present. MCH (RBC) [Entitic mass] 29.5 pg 27.0-32.0 [facility] Work Phone: Nucleated RBC/100 WBC (Bld) [Ratio] 0 % 0-5 [facility] Work Phone: MCHC Auto (RBC) [Mass/Vol]on 12-14-2021 MCHC (RBC) [Mass/Vol] 34.3 g/dL 32-36 [facility] Work Phone: No Panel Informationon 12-14 Centromere B Antibody <0.2 [facility] Work Phone: Endomysial IgA Antibody Negative Negative [facility] Work Phone: Estimated GFR (MDRD) Amer 122 mL/min >60 [facility] Work Phone: Comment on above: GFR Calc Estimated GFR (MDRD) Non-Af Amer 101 mL/min >60 [facility] Work Phone: Comment on above: Non- GFR Calc HVAC SERVICE TECHNICIAN Antibody 0.2 [facility] Work Phone: Thyroid Stimulating Hormone (TSH) 0.93 uIU/mL 0.358-3.74 [facility] Work Phone: Platelets bldon 12-14-2021 Platelets (Bld) [#/Vol] 298 10*3/uL 150-450 [facility] Work Phone: Serum DNA double strand anti body assay (units/volume)on 12-14-2021 DNA double strand Ab Qn (S) [IU]/mL [facility] Work Phone: Comment on above: Negative <5 Equivoca l 5 - 9 Positive >9 Serum Miguelina-1 antibody assay (u nits/volume)on 12-14-2021 Miguelina-1 extractable nuclear Ab Qn (S) <0.2 [facility] Work Phone: Serum Scl-70 extractable nuc lear antibody assay (units/volume)on 12-14-2021 SCL-70 extractable nuclear Ab Qn (S) <0.2 [facility] Work Phone: Serum Ashraf extractable nucl ear antibody detectionon 12-14-2021 Ashraf extractable nuclear Ab Ql (S) <0.2 [facility] Work Phone: Serum or plasma C reactive p rotein measurement (mass/volume)on 12-14-2021 CRP [Mass/Vol] mg/L 0.0-3.0 [facility] Work Phone: Comment on above: C-Reactive Protein ( CRP) provides useful information for thediagnosis, therapy and monitoring of inflammatory processesand associated diseases. For the evaluation of Relative Riskfor Cardiovascular Disease, a High Sensitivity CRP (HSCRP)should be ordered. Serum or plasma IgA measurem ent (mass/volume)on 12-14-2021 IgA [Mass/Vol] 231 mg/dL [facility] Work Phone: Serum or plasma albumin pradip urement (mass/volume)on 12-14-2021 Albumin [Mass/Vol] 3.8 g/dL 3.2-5.0 [facility] Work Phone: Serum or plasma albumin/glob ulin mass ratioon 12-14-2021 Albumin/Globulin [Mass ratio] 1.0 {ratio} 0.9-2.4 [facility] Work Phone: Serum or plasma calcium pradip urement (mass/volume)on 12-14-2021 Calcium [Mass/Vol] 8.3 mg/dL 8.5-10.1 [facility] Work Phone: Serum or plasma creatinine m easurement (mass/volume)on 12-14-2021 Creatinine [Mass/Vol] 0.64 mg/dL 0.55-1.02 [facility] Work Phone: Comment on above: The validity of the calculated GFR & GFRAA in patients over 70 years has not been determined. Clinical correlation is essential. Serum or plasma gastrin pradip urement (mass/volume)on 12-14-2021 Gastrin [Mass/Vol] 26 pg/mL [facility] Work Phone: Comment on above: Siemens Immulite 200 0 Immunochemiluminometric assay (ICMA)Values obtained with different assay methods or kits cannotbe used interchangeably. Results cannot be interpreted asabsolute evidence of the presence or absence of malignantdisease.Performed at: [facility] [employer] [id number] Director: Lars Browne PhD, Phone: [phone] at: [address] [id number] Director: Aung Araujo MD, Phone: [phone] Serum or plasma urea nitroge n measurement (mass/volume)on 12-14-2021 Urea nitrogen [Mass/Vol] 17 mg/dL 7-18 [facility] Work Phone: Serum tissue transglutaminas e IgA antibody assay (units/volume)on 12-14-2021 tTG IgA Qn (S) <2 U/mL [facility] Work Phone: Comment on above: Negative 0 - 3 Weak Positive 4 - 10 Positive >10 Tissue Transglutaminase (tTG) has been identified as the endomysial antigen. Studies have demonstr- ated that endomysial IgA antibodies have over 99% specificity for gluten sensitive enteropathy. Thin prep Papanicolaou smear with manual screeningon 12-14-2021 Thin prep Papanicolaou smear with manual screening 31 U/L 15-37 [facility] Work Phone: Thin prep Papanicolaou smear with manual screening 5 5-15 [facility] Work Phone: Thin prep Papanicolaou smear with manual screening 194 U/L 84-246 [facility] Work Phone: XR Chest PA and Lateralon IMPRESSION: Stable exam without acute findings. [employer] Set Up Operator: OLIVE Transcribe Date/Time: Aug 14 2021 4:30P Dictated by : CLAUDIA WILSON MD This examination was interpreted and the report reviewed and electronically signed by: CLAUDIA WILSON MD on Aug 14 2021 4:30PM [facility] DIVISION OF RADIOLOGY * * *Final [...] in the spine. DIVISION OF RADIOLOGY Provider, Mariam puckett [place] - 08/14/2021 * * *Final Report* * [...] IMPRESSION IMPRESSION: Stable exam without acute findings. [employer] Set Up Operator: OLIVE Transcribe Date/Time: Aug 14 2021 4:30P Dictated by : CLAUDIA WILSON MD This examination was interpreted and the report reviewed and electronically signed by: CLADUIA WILSON MD on Aug 14 2021 4:30PM EST [facility] Radiology Study observation (narrative) [facility] XR Chest PA and LateralOrder ed By: Cc Provider on 08-14-2021 [facility] XR Chest PA and Lateralon IMPRESSION: No acute radiographic abnormality. [employer] Set Up Operator: OLIVE Transcribe Date/Time: Mar 22 2021 7:32P Dictated by : ÁLVARO LOUISE MD This examination was interpreted and the report reviewed and electronically signed by: ÁLVARO LOUISE MD on Mar 22 2021 7:33PM [facility] DIVISION OF RADIOLOGY * * *Final [...] spine. Aortic atherosclerosis. DIVISION OF RADIOLOGY Provider, Mariam Felicita [facility] - 03/22/2021 * * *Final Report* [...] atherosclerosis. IMPRESSION IMPRESSION: No acute radiographic abnormality. [employer] Up Operator: OLIVE Transcribe Date/Time: Mar 22 2021 7:32P Dictated by : ÁLVARO LOUISE MD This examination was interpreted and the report reviewed and electronically signed by: ÁLVARO LOUISE MD on Mar 22 2021 7:33PM EST [facility] Radiology Study observation (narrative) [facility] and LateralOrder ed By: Ccf Provider on 03-22-2021 [facility] XR Lumbar spine Views W flex ion and W extensionon 08-17-2020 IMPRESSION: Degenerative changes as discussed. See discussion in result section of report for remainder of findings [employer] Set Up Operator: PSCKemi Transcribe Date/Time: Aug 17 2020 3:48P Dictated by : ABHIJEET MOYER DO This examination was interpreted and the report reviewed and electronically signed by: ABHIJEET MOYER DO on Aug 17 2020 3:50PM EST DIVISION OF RADIOLOGY * * *Final [...] dislocations are seen. DIVISION OF RADIOLOGY Provider, [facility] - 08/17/2020 * * *Final Report* * [...] section of report for remainder of findings [employer] Set Up Operator: OLIVE Transcribe Date/Time: Aug 17 2020 3:48P Dictated by : ABHIJEET MOYER DO This examination was interpreted and the report reviewed and electronically signed by: ABHIJEET MOYER DO on Aug 17 2020 3:50PM EST [facility] Radiology Study observation (narrative) [facility] XR Lumbar spine Views W flex ion and W extensionOrdered By: Ccf Provider on 08-17-2020 [facility] PROGRESSon 08-16-2020 PROGRESS HNO ID: [id number] Author: Deirdre Preciado (Pa) Service: ? Author Type: Physician Carpentry Teacher Type: Progress Notes Filed: 08/16/2020 10:41 AM [...] groin numbness. She was last evaluated via [facility] on 05/17/2020. At that time, she was [...] August 16, 2020 TIME: 10:09 AM PAGER: [facility] PROGRESSon 05-17-2020 PROGRESS HNO ID: [id number] Author: Deirdre Preciado (Pa) Service: ? Author Type: Physician Carpentry Teacher Type: Progress Notes Filed: 05/17/2020 10:13 AM [...] May 17, 2020 TIME: 9:13 AM PAGER: [facility] Madhavi 05-06-2020 JEAN-CLAUDE Telephone (NSFRVW) ----- GARLAND DE SANTIAGO ([id number]) 1960 F Date Time Provider Department 05/06/20 [...] Date Reviewed: 04/30/2020 Reviewed by: Sabino (Rn) KELSEY Somers - Fully Assessed Reason for Visit: [...] d* FLUTICASONE PROPIONATE 50 MCG* Use 1 [place] in each nostril o* GABAPENTIN 300 MG [...] Status:Closed by DEIRDRE PRECIADO PA-C on 05/06/20 [facility] 05-05-2020 HEIDYN Telephone (NEADFV) ----- GARLAND DE SANTIAGO ([id number]) 1960 F Date Time Provider Department 05/05/20 [...] a time. For questions call patient at [phone]. Cresencio Nguyen Sec 05/05/2020 3:19 PM Signed Patient states the Percocet script should be to take two at a time. Please call her pharmacy to clarify. She uses [facility]. Their phone number is [phone]. Cresencio gNuyen Sec Deirdre Naidu PA-C 05/05/2020 3:29 PM Signed PDMP report unable to be viewed, medication sent to pharmacy. Sriram Bolanos, RN, RN 05/05/2020 3:38 PM Signed Spoke to [facility] pharmacist rx was sent correctly It was just to soon for refill. new rx was sent with increased dose. Namita Morel [place] 05/06/2020 11:12 AM Signed Patient calling and states she hasn't been able to sleep, wakes up in severe pain, wants to know if this is normal. Should she be taking something such as anti-inflammatory medication? Patient is asking for a call back at M [phone] Deirdre Naidu PA-C 05/06/2020 11:27 AM Signed [...] Date Reviewed: 04/30/2020 Reviewed by: Sabino (Rn) KELSEY Somers - Fully Assessed Reason for Visit: [...] d* FLUTICASONE PROPIONATE 50 MCG* Use 1 [place] in each nostril o* GABAPENTIN 300 MG [...] Encounter Status:Closed by SRIRAM BOLANOS on 05/05/20 [facility] 05-04-2020 [facility] Telephone (NSFRVW) ----- GARLAND DE SANTIAGO ([id number]) 1960 F Date Time Provider Department 05/04/20 GERRI SMALL NSFRVW During your visit today, we recorded the following information about you: Cresencio Nguyen Sec 05/04/2020 1:32 PM Signed Patient states [...] days. BRENNA Class: C-II LUCY: No Cresencio Nguyen Sec Allergies As of Date: 05/04/2020 Noted [...] Date Reviewed: 04/30/2020 Reviewed by: Sabino (Rn) KELSEY Somers - Fully Assessed Reason for Visit: [...] d* FLUTICASONE PROPIONATE 50 MCG* Use 1 [place] in each nostril o* GABAPENTIN 300 MG [...] by VANESSA GUILLERMO PA-C on 05/04/20 Normal [facility] Basic Metabolic Panlon 04-30 Anion gap [Moles/Vol] 12 mmol/L Normal 9-18 [facility] Comment on above: Performed By: #### C BC, BMP ####[place] [phone] Calcium [Mass/Vol] 8.8 mg/dL Normal 8.5-10.5 [facility] Comment on above: Performed By: #### C BC, BMP ####[place] [phone] Chloride [Moles/Vol] 100 mmol/L Normal 98-110 [facility] Comment on above: Performed By: #### C BC, BMP ####[place] [phone] CO2 [Moles/Vol] 24 mmol/L Normal 23-32 [facility] Comment on above: Performed By: #### C BC, BMP ####[address] [phone] Creatinine [Mass/Vol] 0.66 mg/dL Low 0.70-1.40 [facility] Comment on above: Performed By: #### C BC, BMP ####[place] [phone] eGFR- Amer. >60 Normal >60 [facility] Comment on above: Performed By: #### C BC, BMP ####[place] [phone] GFR/1.73 sq M predicted among non-blacks MDRD (S/P/Bld) [Vol rate/Area] mL/min/{1.73_m2} Normal >60 [facility] Comment on above: Performed By: #### C BC, BMP ####[place] [phone] Glucose [Mass/Vol] 194 mg/dL High 65-100 [facility] Comment on above: Performed By: #### C BC, BMP ####[place] [phone] Potassium [Moles/Vol] 3.7 mmol/L Normal 3.5-5.0 [facility] Comment on above: Performed By: #### C BC, BMP ####[place] [phone] Sodium [Moles/Vol] 136 mmol/L Normal 132-148 [facility] Comment on above: Performed By: #### C BC, BMP ####[place] [phone] Urea nitrogen [Mass/Vol] 20 mg/dL Normal 8-25 [facility] Comment on above: Performed By: #### C BC, BMP ####[place] [phone] CBCon 04-30-2020 Absolute nRBC <0.01 Normal <0.01 [facility] Comment on above: Performed By: #### C BC, BMP #### [place] [phone] Erythrocyte distribution width (RBC) [Ratio] 13.4 % Normal 11.5-15.0 [facility] Comment on above: Performed By: #### C BC, BMP #### [place] [phone] Hematocrit (Bld) [Volume fraction] 39.7 % Normal 36.0-46.0 [facility] Comment on above: Performed By: #### C BC, BMP #### [place] [phone] Hemoglobin (Bld) [Mass/Vol] 13.0 g/dL Normal 11.5-15.5 [facility] Comment on above: Performed By: #### C BC, BMP #### [place] [phone] MCH (RBC) [Entitic mass] 27.8 pG Normal 26.0-34.0 [facility] Comment on above: Performed By: #### C BC, BMP #### [place] [phone] MCHC (RBC) [Mass/Vol] 32.7 g/dL Normal 30.5-36.0 [facility] Comment on above: Performed By: #### C BC, BMP #### [place] [phone] MCV (RBC) [Entitic vol] 85.0 fL Normal 80.0-100.0 [facility] Comment on above: Performed By: #### C BC, BMP #### [place] [phone] Platelet mean volume (Bld) [Entitic vol] 9.9 fL Normal 9.0-12.7 [facility] Comment on above: Performed By: #### C BC, BMP #### [place] [phone] Platelets (Bld) [#/Vol] 330 10*3/uL Normal 150-400 [facility] Comment on above: Performed By: #### C BC, BMP #### [place] [phone] RBC (Bld) [#/Vol] 4.67 10*6/uL Normal 3.90-5.20 [facility] Comment on above: Performed By: #### C BC, BMP #### [place] [phone] [place] [phone] WBC (Bld) [#/Vol] 13.32 10*3/uL High 3.70-11.00 [facility] Comment on above: Performed By: #### C BC, BMP #### [place] [phone] NURSING PROGon 04-30-2020 NURSING PROG HNO ID: [id number] Author: Tarik PhanRn) KELSEY English Service: ? Author Type: Registered Nurse Type: Nursing Progress Note Filed: 04/29/2020 10:07 PM Note Text: Nursing Progress Note Patient Name: Garland De Santiago Patient Location: [place] [address] Daily Note:04/29/202047 Pt is alert and oriented x3, in stable condition. Lung sounds are clear and equal on 2L NC. Bowel sounds are present in all quadrants. Dry sterile dressing to back is clean, dry and intact. LR infusing @ 50 ml/hr. Pt ambulates independently in the room and to bathroom. Will continue to monitor. This note was completed by: Tarik English RN [facility] PROGRESSon 04-30-2020 PROGRESS HNO ID: [id number] Author: Deirdre Preciado (Pa) Service: Neurosurgery Author Type: Physician Carpentry Teacher Type: Progress Notes Filed: 04/30/2020 8:20 AM [...] mg ORAL DAILY AT 9 PM - [NOV Hold due to Transfer] hydrALAZINE 10 mg [...] s 04/29/20 1845 vte pharmacologic prophylaxis contraindicated (ky,oh) 04/29/20 1845 pneumatic compression stockings (ky,oh) 04/29/20 1845 activity - mobilize patient (ky,oh) 04/27/20 0345 pneumatic compression stockings (ky,oh) 04/27/20 0345 graduated compression stockings (ky,oh) 04/27/20 0345 activity - mobilize patient (ky,wi) VTE Prophylaxis: VTE prophylaxis appropriate Garland De [...] 30, 2020 TIME: 8:18 AM PAGER/CONTACT #: [phone] [facility] THERAPY NTon 04-30-2020 THERAPY NT HNO ID: [id number] Author: Gisel (Pt) Thalia Service: Physical Therapy Author Type: Physical Therapist Type: Therapy (PT/OT/Speech/Resp) Filed: 04/30/2020 12:39 PM Note Text: Physical Therapy Evaluation SERVICE DATE: 04/30/2020 SERVICE TIME: 810 to 834 ROOM: [place] [address] Recommended Discharge Disposition: Home Anticipated Discharge Needs: [...] No Skilled Need Interventions Provided: Evaluation;Gait Training (63821) $ Evaluation-Low (60990) Billed Units: 1 unit Gait Training (97017) Treatment Minutes: 9 1 unit Skilled Intervention(s): [...] YARY, Lumbar Stenosis, Rt TKR, Refer to Epic Patient Report: I feel good Home Environment [...] balance without handhold support, limited postural sway -HLM: 8: Walk 250 feet or more Please see discipline specific clinical documentation flowsheet for complete details for this therapy evaluation/treatment. SIGNATURE: Gisel Vásquez PT PATIENT NAME: Garland De Santiago DATE: April 30, 2020 TIME: 12:37 PM [facility] THERAPY NT HNO ID: [id number] Author: Roxi (Brittney Diana Service: Occupational Therapy Author Type: Occupational Therapist Type: Therapy (PT/OT/Speech/Resp) Filed: 04/30/2020 10:55 AM Note Text: Occupational Therapy Evaluation SERVICE DATE: 04/30/2020 SERVICE TIME: 744 ROOM: [place] [address] Transfer From [facility] With BLE Pain X 4 Days, [...] Shoe Laces;Grab Bars-Shower;Hand Held Shower;Long Handled Shoe Horn;Industrial Painter;Shower Chair;Long Handled Sponge OT Recommendations to Nursing: To Bathroom for ADL?s /and or Toileting;OOB for meals;Transfer to Chair;Other: See Comment(Pt has been up independent in room) Equipment: Other: See Comment(no device required) OT 6 Clicks Score: 24 Precautions/Activity Restrictions: Bed/Chair Alarm;Fall Risk;Lines/Tubes/Drains;S pine;Other: See Comments(Regular Diet) ASSESSMENT: Pt is a 59 year old female Transfer From [facility] With BLE Pain X 4 Days, [...] (ADL);Muscle Weakness (generalized) Interventions Provided: Evaluation;Therapeutic Activity (49086) $ Evaluation-Low (99081) Billed Units: 1 unit Therapeutic Activity (50705) Treatment Minutes: 10 1 unit Skilled Intervention(s): [...] Current Hospital Course: Chart reviewed; Transfer From [facility] With BLE Pain X 4 Days, And Symptoms Concerning For Cauda Equina, L4-5 Lumbar Spinal Stenosis With Neurogenic Claudication, S/P L4 Laminectomy, Decompression Of L4-5 Canal Stenosis With Bilateral L4, L5 Root Foraminotomies 04/29/20 Reason for Occupational Therapy Consult: L4,5 Lumbar Spinal Stenosis With neurogenic Claudication, S/P L4 Lami, Decompression Of L4,5 Canal Stenosis, and Bilateral L4,5 Root Foraminotomies, Refer to [facility] Relevant Past Medical History: Obesity 197 lbs, Smoker, DM II, YARY, Lumbar Stenosis, Rt TKR, Refer to [facility] Patient Report: I am feeling pretty [...] DATE: April 30, 2020 TIME: 10:49 AM [facility] ANES POSTPROC EVALon 020 ANES POSTPROC EVAL HNO ID: [id number] Author: Rito York I Service: ? Author [...] April 29, 2020 TIME: 5:45 PM CSN: [id number] [facility] ANES PRE-OPon 04-29-2020 ANES PRE-OP HNO ID: [id number] Author: Apollo Reeder Service: ? Author Type: [...] DM type 2 (diabetes mellitus, type 2) ([facility]) (+) Type 2 diabetes mellitus without complication, without long-term current use of insulin ([facility]) NEURO-PSYCH (+) Headache PULMONARY (+) Asthma (+) [...] tab(s) (ZOLOFT) 200 mg ORAL DAILY - [NOV Hold due to Transfer] traZODone 100 mg tab(s) (DESYREL) 100 mg ORAL AT BEDTIME - [NOV Hold due to Transfer] gabapentin 900 mg [...] (FLONASE) 50 mcg/actuation nasal spray Use 1 [place] in each nostril once daily. - albuterol [...] April 29, 2020 TIME: 2:16 PM CSN: [id number] Normal [facility] Basic Metabolic Panlon 04-29 Anion gap [Moles/Vol] 12 mmol/L Normal 9-18 [facility] Comment on above: Performed By: #### C HIREN, BMP #### [facility] [address] [place] [address] Calcium [Mass/Vol] 9.6 mg/dL Normal 8.5-10.5 [facility] Comment on above: Performed By: #### C HIREN, BMP #### [facility] [address] [place] [address] Chloride [Moles/Vol] 103 mmol/L Normal 98-110 [facility] Comment on above: Performed By: #### C HIREN, BMP #### [place] [phone] CO2 [Moles/Vol] 25 mmol/L Normal 23-32 [facility] Comment on above: Performed By: #### C BC, BMP #### [place] [phone] Creatinine [Mass/Vol] 0.54 mg/dL Low 0.70-1.40 [facility] Comment on above: Performed By: #### C BC, BMP #### [place] [phone] eGFR- Amer. >60 Normal >60 [facility] Comment on above: Performed By: #### C BC, BMP #### [place] [phone] GFR/1.73 sq M predicted among non-blacks MDRD (S/P/Bld) [Vol rate/Area] mL/min/{1.73_m2} Normal >60 [facility] Comment on above: Performed By: #### C BC, BMP #### [place] [phone] Glucose [Mass/Vol] 157 mg/dL High 65-100 [facility] Comment on above: Performed By: #### C BC, BMP #### [place] [phone] Potassium [Moles/Vol] 4.3 mmol/L Normal 3.5-5.0 [facility] Comment on above: Performed By: #### C BC, BMP #### [place] [phone] Sodium [Moles/Vol] 140 mmol/L Normal 132-148 [facility] Comment on above: Performed By: #### C BC, BMP #### [place] [phone] Urea nitrogen [Mass/Vol] 16 mg/dL Normal 8-25 [facility] Comment on above: Performed By: #### C HIREN, BMP #### [facility] [place] [phone] CASE MANAGEMon 04-29-2020 CASE MANAGEM HNO ID: [id number] Author: Arthur Thomas (Rn) KELSEY Decker Service: ? Author Type: Registered Nurse Type: Care Mgt Progress Note Filed: 04/29/2020 4:19 PM Note Text: CARE MANAGEMENT PROGRESS NOTE SERVICE DATE: 04/29/2020 SERVICE TIME: 11:05 AM LOS: 2 days Pt for surgery later today. PT and OT to see. I anticipate pt will need HC therapies. Pt offers choice of [facility] or [facility] from list provided. Referral placed. Will need HC order. [facility] [facility] [address] [place] [address] and offers a contact # of [phone]. 1600--pt accepted by [facility] for home therapies. SIGNATURE: Arthur Decker RN PATIENT NAME: Garlnad De Santiago DATE: April 29, 2020 TIME: 11:05 AM PAGER/CONTACT #: [phone] Normal [facility] CBCon 04-29-2020 Absolute nRBC <0.01 Normal <0.01 [facility] Comment on above: Performed By: #### C HIREN, BMP #### [facility] [place] [phone] Erythrocyte distribution width (RBC) [Ratio] 13.2 % Normal 11.5-15.0 [facility] Comment on above: Performed By: #### C HIREN, BMP #### [facility] [place] [phone] Hematocrit (Bld) [Volume fraction] 43.2 % Normal 36.0-46.0 [facility] Comment on above: Performed By: #### C BC, BMP #### [place] [phone] Hemoglobin (Bld) [Mass/Vol] 14.5 g/dL Normal 11.5-15.5 [facility] Comment on above: Performed By: #### C HIREN, BMP #### [place] [phone] MCH (RBC) [Entitic mass] 27.9 pG Normal 26.0-34.0 [facility] Comment on above: Performed By: #### C BC, BMP #### [place] [address] MCHC (RBC) [Mass/Vol] 33.6 g/dL Normal 30.5-36.0 [facility] Comment on above: Performed By: #### C BC, BMP #### [place] [phone] MCV (RBC) [Entitic vol] 83.2 fL Normal 80.0-100.0 [facility] Comment on above: Performed By: #### C HIREN, BMP #### [place] [phone] Platelet mean volume (Bld) [Entitic vol] 9.6 fL Normal 9.0-12.7 [facility] Comment on above: Performed By: #### C HIREN, BMP #### [place] [phone] Platelets (Bld) [#/Vol] 338 10*3/uL Normal 150-400 [facility] Comment on above: Performed By: #### C HIREN, BMP #### [place] [phone] RBC (Bld) [#/Vol] 5.19 10*6/uL Normal 3.90-5.20 [facility] Comment on above: Performed By: #### C HIREN, BMP #### [place] [address] WBC (Bld) [#/Vol] 10.06 10*3/uL Normal 3.70-11.00 [facility] Comment on above: Performed By: #### C HIREN, BMP #### [place] [address] CONSULT PROGon 04-29-2020 CONSULT PROG HNO ID: [id number] Author: Gerri Small Service: Neurosurgery Author Type: [...] 04/27/20 0345 pneumatic compression stockings (fl,oh) 04/27/20 034 graduated compression stockings (ky,oh) 04/27/20 034 activity - mobilize patient (ky,wi) VTE Prophylaxis: VTE prophylaxis appropriate SIGNATURE: Deirdre Naidu PA-C PATIENT NAME: Garland De Santiago DATE: April 29, 2020 TIME: 10:45 AM PAGER/CONTACT #: [phone] Staff addendum ? Mrs. De Santiago is [...] root foraminotomy Gerri Small MD Staff, Neurosurgery [facility] NURSING PROGon 04-29-2020 NURSING PROG HNO ID: [id number] Author: Martha PhanRn) KELSEY Allen Service: ? Author Type: Registered Nurse Type: Nursing Progress Note Filed: 04/29/2020 6:45 PM Note Text: Nursing Progress Note Patient Name: Garland De Santiago [id number] Daily Note:Returned from O.R.IV infusing as ordered.Back dressing intact-a scant amt. of reddish drainage shadowing.Ambulated with 2 assistance to bathroom and voided 350cc of a dark pablo urine.Calling for dinner at this time.Will reassess. This note was completed by: Martha Allen RN [facility] NURSING PROG HNO ID: [id number] Author: Martha PhanRnAureliano Allen RN Service: ? Author Type: Registered Nurse Type: Nursing Progress Note Filed: 04/29/2020 1:23 PM Note Text: Nursing Progress Note Patient Name: Garland De Santiago Patient Location: / Daily Note:Heplock intact and flushes well.Remains NPO.To O.R. via bed. This note was completed by: Martha Allen RN [facility] N[facility]SING [facility] HNO ID: [id number] Author: Martha Allen RN Service: ? Author Type: Registered Nurse Type: Nursing Progress Note Filed: 04/29/2020 10:02 AM Note Text: Nursing Progress Note Patient Name: Garland De Santiago Patient Location: / Daily Note:Heplock intact.Remains NPO except small sip of water with medications.C/o numbness/tingling in both feet.Circulation adequate to the lower extremities,toes warm and mobile.Pulses are palpable.Alert and oriented.Ambulated to bathroom without any difficulties.Neurontin/ty lenol were given.Surgery scheduled for early afternoon. This note was completed by: Martha Allen RN [facility] OPERATIVE NOon 04-29-2020 OPERATIVE NO HNO ID: [id number] Author: Gerri Small Service: Neurosurgery Author Type: Physician Type: Operative Report Filed: 04/29/2020 5:12 PM Note Text: OPERATIVE/PROCEDURE REPORT LOG ID: [id number] SURGERY/PROCEDURE DATE: 04/29/2020 INCISION/PROCEDURE START TIME: 3:22 PM INCISION CLOSE/PROCEDURE END TIME: 5:06 PM SURGEON(S)/PROCEDURALIST( S) AND DAMPENER OPERATOR(S): Surgeon(s) and Role: * Gerri Small - Primary Physician Carpentry Teacher: Deirdre Rosado) Ilana ANESTHESIA: General PRE-OP/PRE-PROCEDURE DIAGNOSIS: L4-5 lumbar spinal [...] operating room. While?[facility],?she underwent smooth and adequate general anesthesia. All [...] space level. Level was marked with permanent marker.?cast associate radiologist??reviewed the image remotely and confirmed the [...] 29, 2020 TIME: 5:09 PM PAGER/CONTACT #: [phone] [facility] PROGRESSon 04-29-2020 PROGRESS HNO ID: [id number] Author: Sari Knutson Service: Hospital Medicine Author [...] symptoms concerning for cauda equina. Transferred from [facility] for further evaluation. Seen by Neurosurgery, [...] Prophylaxis/Anticoagulant s 04/27/20 0345 pneumatic compression stockings (ky,oh) 04/27/20 0345 graduated compression stockings (ky,wi) 04/27/20 034 activity - mobilize patient ([place], [place]) VTE Prophylaxis: VTE prophylaxis appropriate SIGNATURE: Janelle Kaufman MD PATIENT NAME: Garland De Santiago DATE: April 29, 2020 TIME: 9:19 AM PAGER: [phone] I have seen and evaluated the patient and discussed the case with the resident physician. I have verified and updated the resident?s note to include the final assessment and plan. Sari Knutson MD [facility] PT EDon 04-29-2020 PT ED HNO ID: [id number] Author: Derick (Rn) KELSEY Britt Service: Podiatry Author Type: Registered Nurse [...] None Electronically Signed By: Derick Britt RN [facility] THERAPY NTon 04-29-2020 THERAPY NT HNO ID: [id number] Author: Shazia (Pt) Jus Service: Physical Therapy Author Type: Physical Therapist Type: Therapy (PT/OT/Speech/Resp) Filed: 04/29/2020 8:09 AM Note Text: PHYSICAL THERAPY MISSED VISIT SERVICE DATE: 04/29/2020 SERVICE TIME: 805 to 805 ROOM: [place] [address] Attempted Evaluation. Patient not seen due to (surgery today) SIGNATURE: Shazia Luu PT PATIENT NAME: Garland De Santiago DATE: April 29, 2020 TIME: 8:07 AM [facility] XR LUMBAR 1Von 04-29-2020 XR LUMBAR [...] for surgical planning. IMPRESSION: 1. Surgical planning. 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 [employer]oring [employer] Set Up Operator: OLIVE Transcribe Date/Time: Apr 29 2020 3:36P Dictated by : BERTHA JENKINS MD This examination was interpreted and the report reviewed and electronically signed by: BERTHA JENKINS MD on Apr 29 2020 3:37PM EST [id number] Normal [facility] Basic Metabolic Panlon 04-28 Anion gap [Moles/Vol] 14 mmol/L Normal 9-18 [facility] Comment on above: Performed By: #### C BC, BMP, B12, SERFOL ####[place] [phone] Calcium [Mass/Vol] 9.7 mg/dL Normal 8.5-10.5 [facility] Comment on above: Performed By: #### C BC, BMP, B12, SERFOL ####[place] [phone] Chloride [Moles/Vol] 102 mmol/L Normal 98-110 [facility] Comment on above: Performed By: #### C BC, BMP, B12, SERFOL ####[place] [phone] CO2 [Moles/Vol] 23 mmol/L Normal 23-32 [facility] Comment on above: Performed By: #### C BC, BMP, B12, SERFOL ####[place] [phone] Creatinine [Mass/Vol] 0.43 mg/dL Low 0.70-1.40 [facility] Comment on above: Performed By: #### C BC, BMP, B12, SERFOL ####[place] [phone] eGFR- Amer. >60 Normal >60 [facility] Comment on above: Performed By: #### C BC, BMP, B12, SERFOL ####[place] [phone] GFR/1.73 sq M predicted among non-blacks MDRD (S/P/Bld) [Vol rate/Area] mL/min/{1.73_m2} Normal >60 [facility] Comment on above: Performed By: #### C BC, BMP, B12, SERFOL ####[place] [phone] Glucose [Mass/Vol] 212 mg/dL High 65-100 [facility] Comment on above: Performed By: #### C BC, BMP, B12, SERFOL ####[place] [address] Potassium [Moles/Vol] 4.6 mmol/L Normal 3.5-5.0 [facility] Comment on above: Result Comment: Revi ewed Performed By: #### C BC, BMP, B12, SERFOL ####[place] [address] Sodium [Moles/Vol] 139 mmol/L Normal 132-148 [facility] Comment on above: Performed By: #### C BC, BMP, B12, SERFOL ####[place] [address] Urea nitrogen [Mass/Vol] 15 mg/dL Normal 8-25 [facility] Comment on above: Performed By: #### C BC, BMP, B12, SERFOL ####[place] [address] CBCon 04-28-2020 Absolute nRBC <0.01 Normal <0.01 [facility] Comment on above: Performed By: #### C BC, BMP, B12, SERFOL ####[place] [address] Erythrocyte distribution width (RBC) [Ratio] 13.2 % Normal 11.5-15.0 [facility] Comment on above: Performed By: #### C BC, BMP, B12, SERFOL ####[place] [address] Hematocrit (Bld) [Volume fraction] 42.1 % Normal 36.0-46.0 [facility] Comment on above: Performed By: #### C BC, BMP, B12, SERFOL ####[place] [phone] Hemoglobin (Bld) [Mass/Vol] 14.2 g/dL Normal 11.5-15.5 [facility] Comment on above: Performed By: #### C BC, BMP, B12, SERFOL ####[place] [phone] MCH (RBC) [Entitic mass] 28.1 pG Normal 26.0-34.0 [facility] Comment on above: Performed By: #### C BC, BMP, B12, SERFOL ####[place] [phone] MCHC (RBC) [Mass/Vol] 33.7 g/dL Normal 30.5-36.0 [facility] Comment on above: Performed By: #### C BC, BMP, B12, SERFOL ####[place] [phone] MCV (RBC) [Entitic vol] 83.4 fL Normal 80.0-100.0 [facility] Comment on above: Performed By: #### C BC, BMP, B12, SERFOL ####[place] [phone] Platelet mean volume (Bld) [Entitic vol] 9.8 fL Normal 9.0-12.7 [facility] Comment on above: Performed By: #### C BC, BMP, B12, SERFOL ####[place] [phone] Platelets (Bld) [#/Vol] 347 10*3/uL Normal 150-400 [facility] Comment on above: Performed By: #### C BC, BMP, B12, SERFOL ####[place] [phone] RBC (Bld) [#/Vol] 5.05 10*6/uL Normal 3.90-5.20 [facility] Comment on above: Performed By: #### C BC, BMP, B12, SERFOL ####[address] [phone] WBC (Bld) [#/Vol] 12.23 10*3/uL High 3.70-11.00 [facility] Comment on above: Performed By: #### C BC, BMP, B12, SERFOL ####[address] [phone] ECG COMPLETEon 04-28-2020 ECG COMPLETE NAME : JULIA DE SANTIAGO PID : [id number] : 1960 Gender : Female Race : ORD : [id number] Procedure Date : Apr 28 2020 08:36:55 Edit Date : Apr 28 2020 12:39:29 Diagnosis:Sinus rhythm Probable left atrial enlargement Borderline ECG Confirmed by HUY THAO MD (34) on 04/28/2020 12:39:26 PM Ventricular Rate : 72 BPM Atrial Rate : 73 BPM P-R Interval : 176 ms QRS Duration : 78 ms Q-T Interval : 411 ms QTC Calculation(Bazett) : 450 ms P [place] : 36 degrees R [place] : 6 degrees T [place] : 19 degrees Test Reason : Pre-OP Location : 400 : FVEKG PK3A Overread By : HUY THAO MD Edited By : HUY THAO MD Referred By : COREY RUBI Acquired by : DERICK FLORES [facility] Folate, Serumon 04-28-2020 Folate [Mass/Vol] 7.7 ng/mL Normal >4.7 [facility] Comment on above: Performed By: #### C BC, BMP, B12, SERFOL ####[address] [phone] NURSING PROGon 04-28-2020 NURSING PROG HNO ID: [id number] Author: Megha (Rn) KELSEY Gregorio Service: ? Author Type: Registered Nurse Type: Nursing Progress Note Filed: 04/29/2020 6:34 AM Note Text: Nursing Progress Note Patient Name: Garland De Santiago Patient Location: [id number] Daily Note:Pt is in the room resting.She [...] note was completed by: Megha Gregorio RN [facility] NURSING PROG HNO ID: [id number] Author: Martha Smith) KELSEY Allen Service: ? Author Type: Registered Nurse Type: Nursing Progress Note Filed: 04/28/2020 6:19 PM Note Text: Nursing Progress Note Patient Name: Garland De Santiago Patient Location: Daily Note:Heplock intact.Took diet well.No n/v.Voiding. Up and about.Showered.Denies pain. This note was completed by: Martha Allen RN [facility] NURSING PROG HNO ID: [id number] Author: Martha Smith) KELSEY Allen Service: ? Author Type: Registered Nurse Type: Nursing Progress Note Filed: 04/28/2020 10:57 AM Note Text: Nursing Progress Note Patient Name: Garland De Santiago Patient Location: Daily Note:Heplock intact.Took diet well.No n/v. Voiding clear yellow urine.Ambulated in lopez,gait steady.Moving well.Continues to have numbness and tingling in the lower legs.Surgery is scheduled for tomorrow.Denies pain. This note was completed by: Martha Allen RN [facility] NURSING PROG HNO ID: [id number] Author: Megha (Rn) KELSEY Gregorio Service: ? Author Type: Registered Nurse Type: Nursing Progress Note Filed: 04/27/2020 11:36 PM Note Text: Nursing Progress Note Patient Name: Garland De Santiago Patient Location: [place] [address]/[place] [address] Daily Note:Pt is in the room resting.AANDOX3.Lungs are clear.Bowl sounds are normal.Pt is up independent.She is voiding normal She has n/t on BLE.Pt has scheduled and PRN pain meds. Pt is anxious. She has xanax to help with it..She is stable at this time.Call light within reach.Will continue to monitor. This note was completed by: Megha Gregorio RN [facility] PROGRESSon 04-28-2020 PROGRESS HNO ID: [id number] Author: Gerir Small Service: Neurosurgery Author Type: Physician Type: [...] ?F) Oral 77 16 95 % ? 04/27/20 2202 138/73 ? 04/27/202001 166/82 36.7 ?C (98.1 ?F) Oral 91 16 94 % ? 04/27/20 193 ? ? ? 82 18 96 % [...] Prophylaxis/Anticoagulant s 04/27/20 0345 pneumatic compression stockings (ky,oh) 04/27/20 0345 graduated compression stockings (ky,oh) 04/27/20 034 activity - mobilize patient (ky,oh) VTE Prophylaxis: VTE prophylaxis appropriate SIGNATURE: KEVIN Smith PATIENT NAME: Garland De Santiago DATE: April 28, 2020 TIME: 9:25 AM PAGER/CONTACT #: [phone] Staff addendum ? Mrs. De Santiago is [...] midnight ? Gerri Small MD Staff, Neurosurgery [facility] PROGRESS HNO ID: [id number] Author: Sari Knutson Service: Hospital Medicine Author [...] symptoms concerning for cauda equina. Transferred from [facility] for further evaluation. Seen by Neurosurgery [...] Prophylaxis/Anticoagulant s 04/27/20 0345 pneumatic compression stockings (ky,oh) 04/27/20 0345 graduated compression stockings (ky,wi) 04/27/20 034 activity - mobilize patient ([place], [place]) VTE Prophylaxis: VTE prophylaxis appropriate SIGNATURE: Janelle Kaufman MD PATIENT NAME: Garland De Santiago DATE: April 28, 2020 TIME: 9:19 AM PAGER: [phone] I have seen and evaluated the patient and discussed the case with the resident physician. I have verified and updated the resident?s note to include the final assessment and plan. Sari Knutson MD [facility] THERAPY NTon 04-28-2020 THERAPY NT HNO ID: [id number] Author: Maday (Ot/L) Danielle Service: Occupational Therapy Author Type: Occupational Therapist Type: Therapy (PT/OT/Speech/Resp) Filed: 04/28/2020 10:08 AM Note Text: OCCUPATIONAL THERAPY MISSED VISIT SERVICE DATE: 04/28/2020 SERVICE TIME: 1000 to 1000 ROOM: [place] [address] Attempted Evaluation. Patient not seen due to Surgery. Spoke with RN who reported pt has agreed to surgery which is scheduled for April 29. OT will hold evaluation at this time and follow up post op when activity orders are updated and pt is appropriate to participate. SIGNATURE: Maday Santos OT/Teri PATIENT NAME: Garland De Santiago DATE: April 28, 2020 TIME: 10:07 AM [facility] Vitamin B12on 04-28-2020 Cobalamin (Vitamin B12) [Mass/Vol] 419 pg/mL Normal 232-1245 [facility] Comment on above: Performed By: #### C BC, BMP, B12, SERFOL ####[facility] [place], [place] [phone] APTTon 04-27-2020 aPTT Coag (Bld) [Time] 24.8 s Normal 23.0-32.4 [facility] Comment on above: Result Comment: Unfr [...] laboratory APTT reagent in use throughout the [facility]. Performed By: #### P TT, CMP, CBC, MG1, PT ####[facility] [place], [place] [phone] CASE MGT INIT LUIS MIGUELon 2019 CASE MGT INIT ASSCLIFF HNO ID: [id number] Author: Marylin (Rn) KELSEY Miller Service: Care Management Author Type: Registered Nurse Type: Care Mgt Initial Assessment Filed: 04/27/2020 10:33 AM Note Text: CARE MANAGEMENT: ASSESSMENT AND DISCHARGE PLAN SERVICE DATE: April 27, 2020 SERVICE TIME: 10:29 AM PRIMARY CARE PHYSICIAN: Willam Estrada MD ADMISSION STATUS: Inpatient Needs Prior to Discharge: To Be Determined;OT/PT Evaluation MEDICAL: MEDICARE A AND B 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 Last discharge within 30 days: No Advance Directive: Current Advance Directive: None Rn Assessment Attempted to Assist with AD Completion: Yes [...] Contact Resources: Family Family Name/Phone: David Mccormick [phone] Social Needs Food insecurity Worry: Patient refused [...] Completely I feel financially burdened by my xos-iv-shgnsy expenses for my prescription medication:: 0 - [...] depression, and anxiety FREEDOM OF CHOICE EXPLAINED: [place] of Choice Given: Yes Level of Care Discussed: Home Care Financial Disclosure Provided: Yes Financial Disclosure Comments: via careport Provider List: Home Care Provider list within the patient's requested geographic area shared with the patient/family: Yes within: 10 miles of zip code: [address] Quality and resource use metrics shared with [...] 27, 2020 TIME: 10:28 AM PAGER/CONTACT #: [phone] Normal [facility] CBCon 04-27-2020 Absolute nRBC <0.01 Normal <0.01 [facility] Comment on above: Performed By: #### P TT, CMP, CBC, MG1, PT ####[place] [address] Erythrocyte distribution width (RBC) [Ratio] 13.5 % Normal 11.5-15.0 [facility] Comment on above: Performed By: #### P TT, CMP, CBC, MG1, PT ####[place] [address] Hematocrit (Bld) [Volume fraction] 40.4 % Normal 36.0-46.0 [facility] Comment on above: Performed By: #### P TT, CMP, CBC, MG1, PT ####[place] [address] Hemoglobin (Bld) [Mass/Vol] 13.6 g/dL Normal 11.5-15.5 [facility] Comment on above: Performed By: #### P TT, CMP, CBC, MG1, PT ####[place] [address] MCH (RBC) [Entitic mass] 28.4 pG Normal 26.0-34.0 [facility] Comment on above: Performed By: #### P TT, CMP, CBC, MG1, PT ####[place] [phone] MCHC (RBC) [Mass/Vol] 33.7 g/dL Normal 30.5-36.0 [facility] Comment on above: Performed By: #### P TT, CMP, CBC, MG1, PT ####[place] [phone] MCV (RBC) [Entitic vol] 84.3 fL Normal 80.0-100.0 [facility] Comment on above: Performed By: #### P TT, CMP, CBC, MG1, PT ####[place] [phone] Platelet mean volume (Bld) [Entitic vol] 9.6 fL Normal 9.0-12.7 [facility] Comment on above: Performed By: #### P TT, CMP, CBC, MG1, PT ####[place] [phone] Platelets (Bld) [#/Vol] 307 10*3/uL Normal 150-400 [facility] Comment on above: Performed By: #### P TT, CMP, CBC, MG1, PT ####[place] [phone] RBC (Bld) [#/Vol] 4.79 10*6/uL Normal 3.90-5.20 [facility] Comment on above: Performed By: #### P TT, CMP, CBC, MG1, PT ####[place] [phone] WBC (Bld) [#/Vol] 8.44 10*3/uL Normal 3.70-11.00 [facility] Comment on above: Performed By: #### P TT, CMP, CBC, MG1, PT ####[place] [phone] CONSULTon 04-27-2020 CONSULT HNO ID: [id number] Author: Gerri Small Service: Neurosurgery Author Type: [...] DM type 2 (diabetes mellitus, type 2) ([facility]) - Essential hypertension 05/23/2006 - Hemorrhage [...] 06/22/2010 right knee arthroscopy- by Dr Dawson ([facility]) - REMOVAL ADENOIDS,PRIMARY,<12 Y/O Adenoidectomy - REMOVAL OF TONSILS,<12 Y/O Tonsillectomy - TOTAL KNEE REPLACEMENT 07/2015 right - VAGINAL HYSTERECTOMY Hysterectomy, vaginal for menorrhagia FAMILY HISTORY Problem Relation Age of Onset - Hypertension Mother history of glaucoma - Cervical Cancer Mother - Asthma Mother - Heart Father [place] x 2 - Cancer Father Lung, metastatic [...] March 02, 2020., Disp: 30 tablet, Rfl: 1, 04/26/2020 at Unknown time - gabapentin (NEURONTIN) 300 mg capsule, Take 2 capsules by mouth once daily for 180 days. Then take three capsules at bedtime, Disp: 60 capsule, Rfl: 5, 04/26/2020 at Unknown time - busPIRone (BUSPAR) [...] (FLONASE) 50 mcg/actuation nasal spray, Use 1 [place] in each nostril once daily., Disp: 1 [...] * SIGNATURE: Deirdre Naidu PA-C PATIENT NAME: Galrand De Santiago DATE: April 27, 2020 TIME: 9:23 AM PAGER: [phone] Staff addendum Mrs. De Santiago is a [...] on 04/29/2020 Gerri Small MD Staff, Neurosurgery Normal [facility] Comp Metabolic Panelon 04-27 Albumin [Mass/Vol] 3.8 g/dL Normal 3.5-5.0 [facility] Comment on above: Performed By: #### P TT, CMP, CBC, MG1, PT ####[place] [phone] ALP [Catalytic activity/Vol] 78 U/L Normal 34-123 [facility] Comment on above: Performed By: #### P TT, CMP, CBC, MG1, PT ####[phone] ALT [Catalytic activity/Vol] 13 U/L Normal 0-45 [facility] Comment on above: Result Comment: Kong connor present Performed By: #### P TT, CMP, CBC, MG1, PT ####[place] [phone] Anion gap [Moles/Vol] 8 mmol/L Low 9-18 [facility] Comment on above: Performed By: #### P TT, CMP, CBC, MG1, PT ####[place] [phone] AST [Catalytic activity/Vol] U/L Low 7-40 [facility] Comment on above: Performed By: #### P TT, CMP, CBC, MG1, PT ####[place] [phone] Bilirubin [Mass/Vol] mg/dL Low 0.2-1.3 [facility] Comment on above: Performed By: #### P TT, CMP, CBC, MG1, PT ####[place] [phone] Calcium [Mass/Vol] 8.9 mg/dL Normal 8.5-10.5 [facility] Comment on above: Performed By: #### P TT, CMP, CBC, MG1, PT ####[place] [phone] Chloride [Moles/Vol] 104 mmol/L Normal 98-110 [facility] Comment on above: Performed By: #### P TT, CMP, CBC, MG1, PT ####[place] [phone] CO2 [Moles/Vol] 26 mmol/L Normal 23-32 [facility] Comment on above: Performed By: #### P TT, CMP, CBC, MG1, PT ####[place] [phone] Creatinine [Mass/Vol] 0.57 mg/dL Low 0.70-1.40 [facility] Comment on above: Performed By: #### P TT, CMP, CBC, MG1, PT ####[place] [phone] eGFR- Amer. >60 Normal >60 [facility] Comment on above: Performed By: #### P TT, CMP, CBC, MG1, PT ####[place] [phone] GFR/1.73 sq M predicted among non-blacks MDRD (S/P/Bld) [Vol rate/Area] mL/min/{1.73_m2} Normal >60 [facility] Comment on above: Performed By: #### P TT, CMP, CBC, MG1, PT ####[place] [phone] Glucose [Mass/Vol] 117 mg/dL High 65-100 [facility] Comment on above: Performed By: #### P TT, CMP, CBC, MG1, PT ####[address], [place] [phone] Potassium [Moles/Vol] 3.6 mmol/L Normal 3.5-5.0 [facility] Comment on above: Performed By: #### P TT, CMP, CBC, MG1, PT ####[address] [phone] Protein [Mass/Vol] 6.4 g/dL Normal 6.0-8.4 [facility] Comment on above: Performed By: #### P TT, CMP, CBC, MG1, PT ####[place] [phone] Sodium [Moles/Vol] 138 mmol/L Normal 132-148 [facility] Comment on above: Performed By: #### P TT, CMP, CBC, MG1, PT ####[place] [phone] Urea nitrogen [Mass/Vol] 19 mg/dL Normal 8-25 [facility] Comment on above: Performed By: #### P TT, CMP, CBC, MG1, PT ####[address] [phone] Coronavirus 2019on 0 COVID 19 Result COUTURIERE Negative Normal Negative for COVID19 (SARS CoV2) by PCR. [facility] Comment on above: Result Comment: This test was developed and its performance characteristics determined by [facility]'s [facility] [place]. This test has been authorized by FDA under an Emergency Use Authorization (EUA). This test has been validated in accordance with the FDA's Guidance Document Policy for Diagnostics Testing in Laboratories Certified to Perform High Complexity Testing under CLIA prior to Emergency use Authorization for Coronavirus Disease 2019 during the Public Health Emergency issued on November 07, 2019. Performed By: #### C OVID ####[address] [phone] [phone] COVID 19 Source COUTURIERE Nasopharyngeal Swab Normal [facility] Comment on above: Performed By: #### C OVID ####[facility] [place], [place] [phone] [facility] [place], [place] [phone] HISTORY PHYSICALon 0 HISTORY PHYSICAL HNO ID: [id number] Author: May Huizar Service: Hospital Medicine Author Type: Physician Type: HANDP Filed: 04/27/2020 5:53 AM Note Text: DEPARTMENT OF HOSPITAL MEDICINE HISTORY AND PHYSICAL EXAM SERVICE DATE: 04/27/2020 SERVICE TIME: 3:38 AM Primary Care Physician: Willam Estrada MD NIGHT AND WEEKEND COVERAGE: [place] COVERAGE:Days: [phone], please page me for patient issues. Nights: [phone], please page F Hospitalist Night Coverage pager: [phone]. Subjective CHIEF COMPLAINT: Bilateral leg pain of [...] Had bleeding hemorrhoids in 2012; normal colonoscopy - Impaired fasting glucose 05/23/2006 [...] 06/22/2010 right knee arthroscopy- by Dr Dawson ([facility]) - REMOVAL ADENOIDS,PRIMARY,<12 Y/O Adenoidectomy - REMOVAL OF TONSILS,<12 Y/O Tonsillectomy - TOTAL KNEE REPLACEMENT 07/2015 right - VAGINAL HYSTERECTOMY Hysterectomy, vaginal for menorrhagia FAMILY HISTORY Problem Relation Age of Onset - Hypertension Mother history of glaucoma - Cervical Cancer Mother - Asthma Mother - Heart Father [place] x 2 - Cancer Father Lung, metastatic [...] (FLONASE) 50 mcg/actuation nasal spray, Use 1 [place] in each nostril once daily., Disp: 1 [...] symptoms concerning for cauda equina. Transferred from [facility] for further evaluation. #Cauda equina -5 [...] +2. Positive straight leg raising -Labs at [facility] : Hb 13.8 Wbc 10 Plt:352 Cr [...] Prophylaxis/Anticoagulant s 04/27/20 0345 pneumatic compression stockings ([place], [place]) 04/27/20 0345 graduated compression [place]) 04/27/20 0345 activity - mobilize patient ([place] VTE Prophylaxis: VTE prophylaxis appropriate Disposition: To be determined Plan of care discussed with: Provider, RN, Patient SIGNATURE: Preeti Gupta PATIENT NAME: Garland De Santiago DATE: April 27, 2020 TIME: 3:38 AM PAGER/CONTACT #: [phone] etx [phone] [facility] STAFF PHYSICIAN NOTE OF PERSONAL INVOLVEMENT IN [...] Neurosurgery consults. SIGNATURE: May Huizar MD PAGER: [phone] DATE of SERVICE: April 27, 2020 TIME of SERVICE: 4:05 AM Normal [facility] Magnesiumon 04-27-2020 Magnesium [Mass/Vol] 2.0 mg/dL Normal 1.7-2.6 [facility] Comment on above: Performed By: #### P TT, CMP, CBC, MG1, PT ####[facility] [place], [place] [phone] NURSING PROGon 04-27-2020 NURSING PROG HNO ID: [id number] Author: Divina PhanRn) KELSEY Sheffield Service: ? Author Type: Registered Nurse Type: Nursing Progress Note Filed: 04/27/2020 6:38 PM Note Text: Nursing Progress Note Patient Name: Garland De Santiago Patient Location: Daily Note: 07 Received report and assumed care. Resting in [...] note was completed by: Divina Sheffield RN [facility] NURSING PROG HNO ID: [id number] Author: Jeff PhanRn) Anjel RN Service: ? Author Type: Registered Nurse Type: Nursing Progress Note Filed: 04/27/2020 2:50 AM Note Text: Nursing Progress Note Patient Name: Garland De Santiago Patient Location: / Transfer Note: Patient transferred into room/unit PK3-307 in stable condition. Actions taken: Patient belongings with patient. Patient safety maintained. Will continue to monitor. 0250: Awaiting orders. This note was completed by: Jeff Hobbs RN [facility] PROGRESSon 04-27-2020 PROGRESS HNO ID: [id number] Author: Sari Knutson Service: Hospital Medicine Author [...] symptoms concerning for cauda equina. Transferred from [facility] for further evaluation. ? L2-L3 nerve [...] Prophylaxis/Anticoagulant s 04/27/20 0345 pneumatic compression stockings ([place]) 04/27/20 0345 graduated compression stockings [place]) 04/27/20 0345 activity - mobilize [place] VTE Prophylaxis: VTE prophylaxis appropriate SIGNATURE: Janelle Kaufman MD PATIENT NAME: Garland De Santiago DATE: April 27, 2020 TIME: 9:19 AM PAGER: [phone] I have seen and evaluated the patient and discussed the case with the resident physician. I have verified and updated the resident?s note to include the final assessment and plan. Sari Knutson MD Normal [facility] Protimeon 04-27-2020 PT Coag (PPP) [Time] 1.0 s Normal 0.9-1.3 [facility] Comment on above: Result Comment: Yany min K Antagonist (VKA) Therapeutic Range: INR 2 to 3 (Target INR of 2.5) Note: For patients treated with VKA drugs, such as warfarin, the [employer] 2012 Guideline recommends [...] 2.5 to 3.5 (target INR of 3). Cammiett GH, et al. Chest 2012, 141:7S-47S Mars RA, et al. [facility] 2017, 70: 252-289 Performed By: #### P TT, CMP, CBC, MG1, PT ####[place] [id number] [place], [place] [phone] PT Coag (PPP) [Time] 10.4 s Normal 9.7-13.0 [facility] Comment on above: Performed By: #### P TT, CMP, CBC, MG1, PT ####[address] [phone] THERAPY NTon 04-27-2020 THERAPY NT HNO ID: [id number] Author: Maday Sanchez/Ulices Santos Service: Occupational Therapy Author Type: Occupational Therapist Type: Therapy (PT/OT/Speech/Resp) Filed: 04/27/2020 4:19 PM Note Text: OCCUPATIONAL THERAPY MISSED VISIT SERVICE DATE: 04/27/2020 SERVICE TIME: to ROOM: [place] [address] Attempted Evaluation. Patient not seen due to pending surgery. Pt s/p Neuro consult earlier this date and is deciding about surgical intervention. Per chart, pt is NPO for possible surgery. OT will follow up post-op/as appropriate. SIGNATURE: Maday Santos OT/Teri PATIENT NAME: Garland De Santiago DATE: April 27, 2020 TIME: 4:16 PM Normal [facility] THERAPY NT HNO ID: [id number] Author: Shazia (Pt) Jus Service: Physical Therapy Author Type: Physical Therapist Type: Therapy (PT/OT/Speech/Resp) Filed: 04/27/2020 8:19 AM Note Text: PHYSICAL THERAPY MISSED VISIT SERVICE DATE: 04/27/2020 SERVICE TIME: 817 to 817 ROOM: [place] [address] Attempted Evaluation. Patient not seen due to (bedrest per Dr note; awaits neuroconsult;possible surgery). SIGNATURE: Shazia Luu, PT PATIENT NAME: Garland De Santiago DATE: April 27, 2020 TIME: 8:19 AM [facility] HOSPon 04-26-2020 HOSP Patient:Gurvinder De Santiago [...] Patient Name: Garland De Santiago Patient Location: [place] [address]/[place] [address] Transfer Note: Patient transferred into room/unit PK3-[facility] in stable condition. Actions taken: Patient belongings with patient. Patient safety maintained. Will continue to monitor. 0250: Awaiting orders. This note was completed by: Jeff Hobbs RN Previous Version May Huizar MD 04/27/2020 5:53 AM Addendum DEPARTMENT OF HOSPITAL MEDICINE HISTORY AND PHYSICAL EXAM SERVICE DATE: 04/27/2020 SERVICE TIME: 3:38 AM Primary Care Physician: Willam Estrada MD NIGHT AND WEEKEND COVERAGE: [place] COVERAGE:Days: [phone], please page me for patient issues. Nights: [phone], please page CC Hospitalist Night Coverage pager: [phone]. Subjective CHIEF COMPLAINT: Bilateral leg pain of [...] - APPENDECTOMY [facility] Colonoscopy repeat 10 years - EGD W/O OR W/BRUSH/WASH 02/09/16 EGD - L'SCOPE DX W/WO BRUSHINGS/WASHINGS Laparoscopy - LAP CHOLECYSTECT/CHOLANGIOGRA PHY 10/07/06 - LIGATE FALLOPIAN TUBE Tubal ligation - PAST SURGICAL HISTORY OF 06/22/2010 right knee arthroscopy- by Dr Dawson ([facility]) - REMOVAL ADENOIDS,PRIMARY,<12 Y/O Adenoidectomy - REMOVAL OF TONSILS,<12 Y/O Tonsillectomy - TOTAL KNEE REPLACEMENT 07/2015 right - VAGINAL HYSTERECTOMY Hysterectomy, vaginal for menorrhagia FAMILY HISTORY Problem Relation Age of Onset - Hypertension Mother history of glaucoma - Cervical Cancer Mother - Asthma Mother - Heart Father [place] x 2 - Cancer Father Lung, metastatic [...] March 02, 2020., Disp: 30 tablet, Rfl: 1, 04/26/2020 at Unknown time - gabapentin (NEURONTIN) [...] (FLONASE) 50 mcg/actuation nasal spray, Use 1 [place] in each nostril once daily., Disp: 1 [...] symptoms concerning for cauda equina. Transferred from [facility] for further evaluation. #Cauda equina -5 [...] +2. Positive straight leg raising -Labs at [facility] : Hb 13.8 Wbc 10 Plt:352 Cr [...] Prophylaxis/Anticoagulant s 04/27/20 034 pneumatic compression stockings ([place]) 04/27/20 034 graduated compression stockings [place]) 04/27/20 034 activity - [place]ize [place] VTE Prophylaxis: VTE prophylaxis appropriate Disposition: To be determined Plan of care discussed with: Provider, RN, Patient SIGNATURE: Preeti Gupta PATIENT NAME: Garland De Santiago DATE: April 27, 2020 TIME: 3:38 AM PAGER/CONTACT #: [phone] etx [phone] [facility] STAFF PHYSICIAN NOTE OF PERSONAL INVOLVEMENT IN [...] Neurosurgery consults. SIGNATURE: May Huizar MD PAGER: [phone] DATE of SERVICE: April 27, 2020 TIME of SERVICE: 4:05 AM Previous Version Shazia Luu PT 04/27/2020 8:19 AM Signed PHYSICAL THERAPY MISSED VISIT SERVICE DATE: 04/27/2020 SERVICE TIME: 817 to 817 ROOM: [place] [address] Attempted Evaluation. Patient not seen due to [...] symptoms concerning for cauda equina. Transferred from [facility] for further evaluation. ? L2-L3 nerve [...] ? Medication and Non-Pharmacologic VTE Prophylaxis/Anticoagulant s 04/27/20344 pneumatic compression stockings ([place]) 04/27/20344 graduated compression stockings ([place]) 04/27/20344 activity - mobilize patient ([place]) VTE Prophylaxis: VTE prophylaxis appropriate SIGNATURE: Janelle Kaufman MD PATIENT NAME: Garland De Santiago DATE: April 27, 2020 TIME: 9:19 AM PAGER: [phone] I have seen and evaluated the patient [...] Had bleeding hemorrhoids in 2012; normal colonoscopy - Impaired fasting glucose 05/23/2006 [...] 06/22/2010 right knee arthroscopy- by Dr Dawson ([facility]) - REMOVAL ADENOIDS,PRIMARY,<12 Y/O Adenoidectomy - REMOVAL OF TONSILS,<12 Y/O Tonsillectomy - TOTAL KNEE REPLACEMENT 07/2015 right - VAGINAL HYSTERECTOMY Hysterectomy, vaginal for menorrhagia FAMILY HISTORY Problem Relation Age of Onset - Hypertension Mother history of glaucoma - Cervical Cancer Mother - Asthma Mother - Heart Father [place] x 2 - Cancer Father Lung, metastatic [...] mouth once daily., Disp: 60 tablet, Rfl: 04/25/2020 at Unknown time - ibuprofen (MOTRIN) [...] (FLONASE) 50 mcg/actuation nasal spray, Use 1 [place] in each nostril once daily., Disp: 1 [...] April 27, 2020 TIME: 9:23 AM PAGER: [phone] Staff addendum Mrs. 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 Last discharge within 30 days: No Advance Directive: Current Advance Directive: None Rn Assessment Attempted to Assist with AD Completion: Yes [...] Resources: Family Family Name/Phone: Daughter Leila Mccormick [phone] Social Needs Food insecurity Worry: Patient refused [...] Completely I feel financially burdened by my abr-of-uxlpfr expenses for my prescription medication:: 0 - [...] depression, and anxiety FREEDOM OF CHOICE EXPLAINED: [place] of Choice Given: Yes Level of Care Discussed: Home Care Financial Disclosure Provided: Yes Financial Disclosure Comments: via careport Provider List: Home Care Provider list within the patient's requested geographic area shared with the patient/family: Yes within: 10 miles of zip code: [address] Quality and resource use metrics shared with [...] 27, 2020 TIME: 10:28 AM PAGER/CONTACT #: [phone] Maday Santos OT/L 04/27/2020 4:19 PM Signed OCCUPATIONAL THERAPY MISSED VISIT SERVICE DATE: 04/27/2020 SERVICE TIME: to ROOM: [place] [address] Attempted Evaluation. Patient not seen due to [...] Patient Name: Garland De Santiago Patient Location: [place] [address] [address] Daily Note: 0730 Received report and assumed [...] of care. This note was completed by: KELSEY Multani, RN, RN 04/27/2020 11:36 PM Signed Nursing Progress Note Patient Name: Garland De Santiago Patient Location: [place] [address]/[address] Daily Note:Pt is in the room resting.AANDOX3.Lungs are clear.Bowl sounds are normal.Pt is up independent.She is voiding normal She has n/t on BLE.Pt has scheduled and PRN pain meds. Pt is anxious. She has xanax to help with it..She is stable at this time.Call light within reach.Will continue to monitor. This note was completed by: KELSEY Martinez MD 04/28/2020 5:57 PM Signed INPATIENT PROGRESS [...] symptoms concerning for cauda equina. Transferred from [facility] for further evaluation. Seen by Neurosurgery [...] normal. Medication and Non-Pharmacologic VTE Prophylaxis/Anticoagulant s 04/27/20344 pneumatic compression stockings (ky,wi) 04/27/20344 graduated compression stockings (ky,[place]) 04/27/20344 activity - mobilize [place] ([place]) VTE Prophylaxis: VTE prophylaxis appropriate SIGNATURE: Janelle Kaufman MD PATIENT NAME: Garland De Santiago DATE: April 28, 2020 TIME: 9:19 AM PAGER: [phone] I have seen and evaluated the patient [...] ?F) Oral 77 16 95 % ? 04/27/20 2202 138/73 ? 04/27/202001 166/82 36.7 ?C [...] Prophylaxis/Anticoagulant s 04/27/20 0345 pneumatic compression stockings ([place]) 04/27/20 0345 graduated compression stockings [place]) 04/27/20 0345 activity - [place]ize [place] VTE Prophylaxis: VTE prophylaxis appropriate SIGNATURE: KEVIN Smith PATIENT NAME: Garland De Santiago DATE: April 28, 2020 TIME: 9:25 AM PAGER/CONTACT #: [phone] Staff addendum ? Mrs. De Santiago is [...] surgery. Known diabetic. Last A1c done on 10/24/19 is 7.8 ? Neurological examination showed stable [...] Gerri Small MD Staff, Neurosurgery Previous Version ELLIE Matos 04/28/2020 10:08 AM Signed OCCUPATIONAL THERAPY MISSED VISIT SERVICE DATE: 04/28/2020 SERVICE TIME: 1000 to 1000 ROOM: [place] [address] Attempted Evaluation. Patient not seen due to Surgery. Spoke with RN who reported pt has agreed to surgery which is scheduled for April 29. OT will hold evaluation at this time and follow up post op when activity orders are updated and pt is appropriate to participate. SIGNATURE: ELLIE Matos PATIENT NAME: Garland De Santiago DATE: April 28, 2020 TIME: 10:07 AM Martha Allen RN, RN 04/28/2020 10:57 AM Signed Nursing Progress Note Patient Name: Garland De Santiago Patient [facility] [place] [id number] Daily Note:Heplock intact.Took diet well.No n/v. Voiding clear yellow urine.Ambulated in [place]opez,gait steady.Moving well.Continues to have numbness and tingling in the lower legs.Surgery is scheduled for tomorrow.Denies pain. This note was completed by: KELSEY Tang RN, RN 04/28/2020 6:19 PM Signed Nursing Progress Note Patient Name: Garland De Santiago Patient Location: / Daily Note:Heplock intact.Took diet well.No n/v.Voiding. Up and about.Showered.Denies pain. This note was completed by: KELSEY Tang RN, RN 04/29/2020 6:34 AM Addendum Nursing Progress Note Patient Name: Garland De Santiago Patient Location: / Daily Note:Pt is in the room resting.She [...] 04/29/2020 SERVICE TIME: 805 to 805 ROOM: [place] [address] Attempted Evaluation. Patient not seen due to [...] symptoms concerning for cauda equina. Transferred from [facility] for further evaluation. Seen by Neurosurgery, [...] Prophylaxis/Anticoagulant s 04/27/20 0345 pneumatic compression stockings ([place]) 04/27/20 0345 graduated compression stockings ([place]) 04/27/20 034 activity - mobilize patient ([place] VTE Prophylaxis: VTE prophylaxis appropriate SIGNATURE: Janelle Kaufman MD PATIENT NAME: Garland De Santiago DATE: April 29, 2020 TIME: 9:19 AM PAGER: [phone] Martha Allen, RN, RN 04/29/2020 10:02 AM Signed Nursing Progress Note Patient Name: Garland De Santiago Patient Location: [place] [address] [address] Daily Note:Heplock intact.Remains NPO except small sip of water with medications.C/o numbness/tingling in both feet.Circulation adequate to the lower extremities,toes warm and mobile.Pulses are palpable.Alert and oriented.Ambulated to bathroom without any difficulties.Neurontin/ty lenol were given.Surgery scheduled for early afternoon. This note was completed by: KELSEY Tang MD 04/29/2020 2:21 PM Addendum PROGRESS NOTE [...] Prophylaxis/Anticoagulant s 04/27/20 0345 pneumatic compression stockings ([place]) 04/27/20 0345 graduated compression stockings ([place]) 04/27/20 0345 activity - mobilize patient [place] VTE Prophylaxis: VTE prophylaxis appropriate SIGNATURE: Deirdre Naidu PA-C PATIENT NAME: Garland De Santiago DATE: April 29, 2020 TIME: 10:45 AM PAGER/CONTACT #: [phone] Staff addendum ? Mrs. De Santiago is [...] need HC therapies. Pt offers choice of [facility] or [facility] from list provided. Referral placed. Will need HC order. Pt plans on staying at [address] [place] [address] and offers a contact # of [phone]. SIGNATURE: Arthur Decker RN PATIENT NAME: Garland De Santiago DATE: April 29, 2020 TIME: 11:05 AM PAGER/CONTACT #: [phone] Previous Version Martha Allen RN, RN 04/29/2020 1:23 PM Signed Nursing Progress Note Patient Name: Garland De Santiago Patient [facility]: [place] [address] Daily Note:Heplock intact and flushes well.Remains NPO.To O.R. via bed. This note was completed by: KELSEY Tang RN, RN 04/29/2020 1:50 PM Signed [...] Signed By: Derick Britt RN Progress Notes ([facility]): Collin Medina APRN.[facility] 04/26/2020 4:17 PM Signed VIRTUAL VISIT PROGRESS NOTE This is a virtual visit using HIPAA compliant video platform. It required patient-provider interaction for the medical decision making as documented below. Garland De Santiago is a 59 year old female seen for ED follow up. Patient evaluated at [facility] ED less than 24 hours ago for [...] Lumbar strain. Given short term supply of [place] and instructed to follow up if symptoms [...] muscles. Pain is exacerbated with walking. Taking [place] with temporary improvement. Reports a fall ~1.5 [...] DM type 2 (diabetes mellitus, type 2) ([facility]) - Essential hypertension 05/23/2006 - Hemorrhage [...] - APPENDECTOMY - COLONOSCOP W/ OR W/O [facility] SPEC 12/13/2011 Colonoscopy repeat 10 years - EGD W/O OR W/BRUSH/WASH 02/09/16 EGD - L'SCOPE DX W/WO BRUSHINGS/WASHINGS Laparoscopy - LAP CHOLECYSTECT/CHOLANGIOGRA PHY 10/07/06 - LIGATE FALLOPIAN TUBE Tubal ligation - PAST SURGICAL HISTORY OF 06/22/2010 right knee arthroscopy- by Dr Dawson ([facility]) - REMOVAL ADENOIDS,PRIMARY,<12 Y/O Adenoidectomy - REMOVAL OF TONSILS,<12 Y/O Tonsillectomy - TOTAL KNEE REPLACEMENT 07/2015 right - VAGINAL HYSTERECTOMY Hysterectomy, vaginal for menorrhagia FAMILY HISTORY Problem Relation Age of Onset - Hypertension Mother history of glaucoma - Cervical Cancer Mother - Asthma Mother - Heart Father [place] x 2 - Cancer Father Lung, metastatic [...] (FLONASE) 50 mcg/actuation nasal spray Use 1 [place] in each nostril once daily. - gabapentin [...] DVT given recent trauma/fall. Information sent via [facility] ED Passport system. Patient verbalized understanding and agreeable to plan. Collin Meidna APRN.UNDER CUTTING MACHINE OPERATOR Normal [facility] AO MAIN OR Intraop Recordon 08-02-2017 AO MAIN OR Intraop Record Normal [facility] ([place]) Anesthesiology Consultationo n 08-02-2017 Anesthesiology Consultation Normal [facility] ([place]) Anesthesiology Consultation Normal [facility] ([place]) Depart Summaryon 08-02-2017 Depart Summary Normal [facility] ([place]) [place] Operative Reporton 08-02-2017 [place] Operative Report Normal [facility] ([place]) Outpatient Patient Summaryon 08-02-2017 Outpatient Patient Summary Normal [facility]) .Auto Diffon 07-23-2017 Basophils Auto #/vol (Bld) 0.10 10 3/mcL Normal 0.00-0.19 [facility] ([place]) Comment on above: Performed By: #### B MP, GFR, CBC, ADIFF, ANEU ####[address] [place], [place] [address] Basophils/100 WBC Auto (Bld) 0.7 % Normal 0.0-2.5 [facility] ([place]) Comment on above: Performed By: #### B MP, GFR, CBC, ADIFF, ANEU ####[address] [place], [place] [address] Eosinophils 0.30 10 3/mcL Normal 0.00-0.40 [facility] ([place]) Comment on above: Performed By: #### B MP, GFR, CBC, ADIFF, ANEU ####[address] [place], [place] [address] Eosinophils/100 leukocytes 3.1 % Normal 0.0-7.0 [facility] ([place]) Comment on above: Performed By: #### B MP, GFR, CBC, ADIFF, ANEU ####[address] [place], [place] [address] Lymphocytes 3.70 10 3/mcL Normal 0.77-3.85 [facility] ([place]) Comment on above: Performed By: #### B MP, GFR, CBC, ADIFF, ANEU ####[address] [place], [place] [address] Lymphocytes/100 leukocytes 40.2 % Normal 10.0-50.0 [facility] ([place]) Comment on above: Performed By: #### B MP, GFR, CBC, ADIFF, ANEU ####[address] [place], [place] [address] Monocytes 0.60 10 3/mcL Normal 0.15-1.00 [facility] ([place]) Comment on above: Performed By: #### B MP, GFR, CBC, ADIFF, ANEU ####[address] [place], [place] [address] Monocytes/100 leukocytes 7.0 % Normal 1.7-13.0 [facility] ([place]) Comment on above: Performed By: #### B MP, GFR, CBC, ADIFF, ANEU ####[address] [place], [place] [address] Neutrophils/100 WBC Auto (Bld) 49.0 % Normal 37.0-80.0 [facility] ([place]) Comment on above: Performed By: #### B MP, GFR, CBC, ADIFF, ANEU ####[address] [place], [place] [address] .NEUABSon 07-23-2017 Neutrophils 4.50 10 3/mcL Normal 2.85-6.16 [facility] ([place]) Comment on above: Performed By: #### B MP, GFR, CBC, ADIFF, ANEU ####[address] [place], [place] [address] CBCon 07-23-2017 Erythrocyte distribution width Auto Ratio (RBC) 13.9 % Normal 11.5-14.5 [facility] ([place]) Comment on above: Performed By: #### B MP, GFR, CBC, ADIFF, ANEU ####[address] [place], [place] [address] Erythrocytes (RBC) 5.02 10 6/mcL Normal 4.20-5.40 [facility] ([place]) Comment on above: Performed By: #### B MP, GFR, CBC, ADIFF, ANEU ####[address] [place], [place] [address] Hematocrit (HCT) 42.7 % Normal 37.0-47.0 [facility] ([place]) Comment on above: Performed By: #### B MP, GFR, CBC, ADIFF, ANEU ####[address] [place], [place] [address] Hemoglobin mass conc (Bld) 14.5 G/dL Normal 12.0-16.0 [facility] ([place]) Comment on above: Performed By: #### B MP, GFR, CBC, ADIFF, ANEU ####[address] [place], [place] [address] MCH 28.9 pg Normal 27.0-31.2 [facility] ([place]) Comment on above: Performed By: #### B MP, GFR, CBC, ADIFF, ANEU ####[address] [place], [place] [address] MCHC mass conc (RBC) 33.9 G/dL Normal 33.0-37.0 [facility] ([place]) Comment on above: Performed By: #### B MP, GFR, CBC, ADIFF, ANEU ####[address] [place], [place] [address] MCV 85.0 fL Normal 80.0-94.0 [facility] ([place]) Comment on above: Performed By: #### B MP, GFR, CBC, ADIFF, ANEU ####[address] [place], [place] [address] Platelet mean volume (PMV) 8.5 fL Normal 7.4-10.4 [facility] ([place]) Comment on above: Performed By: #### B MP, GFR, CBC, ADIFF, ANEU ####[address] [place], [place] [address] Platelets 280 10 3/mcL Normal 130-400 [facility] ([place]) Comment on above: Performed By: #### B MP, GFR, CBC, ADIFF, ANEU ####[address] [place], [place] [address] WBC (Leukocytes) 9.20 10 3/mcL Normal 4.60-10.80 [facility] ([place]) Comment on above: Performed By: #### B MP, GFR, CBC, ADIFF, ANEU ####[address] [place], [place] [address] .GFRon 07-22-2017 eGFR (non-black) 116 ml/min/1.73sqm Normal [facility] ([place]) Comment on above: Result Comment: GFR Population [...] MP, GFR, CBC, ADIFF, ANEU ####[address] [place], [place] [address] eGFR (non-black) mL/min/{1.73_m2} Normal [facility] ([place]) Comment on above: Result Comment: GFR Population [...] MP, GFR, CBC, ADIFF, ANEU ####[address] [place], [place] [address] BMPon 07-22-2017 BUN/Creatinine Ratio 27 ratio Normal 7-27 [facility] ([place]) Comment on above: Performed By: #### B MP, GFR, CBC, ADIFF, ANEU ####[address] [place], [place] [address] Calcium 9.3 mg/dL Normal 8.4-10.2 [facility] ([place]) Comment on above: Performed By: #### B MP, GFR, CBC, ADIFF, ANEU ####[address] [place], [place] [address] Chloride 101 mmol/L Normal 98-107 [facility] ([place]) Comment on above: Performed By: #### B MP, GFR, CBC, ADIFF, ANEU ####[address] [place], [place] [address] CO2 26 mmol/L Normal 22-29 [facility] ([place]) Comment on above: Performed By: #### B MP, GFR, CBC, ADIFF, ANEU ####[address] [place], [place] [address] Creatinine 0.6 mg/dL Normal 0.6-1.2 [facility] ([place]) Comment on above: Performed By: #### B MP, GFR, CBC, ADIFF, ANEU ####[address] [place], [place] [address] Electrolyte Balance 12.0 mEq/L Normal [facility] ([place]) Comment on above: Performed By: #### B MP, GFR, CBC, ADIFF, ANEU ####[address] [place], [place] [address] Glucose mass conc 159 mg/dL High 70-105 [facility] ([place]) Comment on above: Performed By: #### B MP, GFR, CBC, ADIFF, ANEU ####[address] [place], [place] [address] Potassium molar conc 3.6 mmol/L Normal 3.5-5.1 [facility] ([place]) Comment on above: Performed By: #### B MP, GFR, CBC, ADIFF, ANEU ####[address] [place], [place] [address] Sodium 139 mmol/L Normal 136-146 [facility] ([place]) Comment on above: Performed By: #### B MP, GFR, CBC, ADIFF, ANEU ####[address] [place], [place] [address] Urea nitrogen 16.1 mg/dL Normal 7.0-18.0 [facility] ([place]) Comment on above: Performed By: #### B MP, GFR, CBC, ADIFF, ANEU ####[address] [place], [place] [address] Vital Signs Date Time Vital Sign Value Performing Clinician Facility 04-08-2025 09:05-0400 Body height 167.[address] Willam Estrada MD Work Phone: 6(385)478-843818 [address] 04-08-2025 09:05-0400 Body mass index (BMI) [Ratio] 31.3 kg/m2 Dr. Willam Estrada MD Work Phone: 0(221)492-502737 [place] [address] 04-08-2025 09:05-0400 Body weight 87.[address] Willam Estrada MD Work Phone: 8(811)296-595337 [place] [address] 04-08-2025 09:05-0400 Diastolic blood pressure 76 mm[Hg] Dr. Willam Estrada MD Work Phone: 2(866)159-914478 [place] [address] 04-08-2025 09:05-0400 Heart rate 82 /min Dr. Willam Estrada MD Work Phone: 5(721)949-924078 [place] [address] 04-08-2025 09:05-0400 Respiratory rate 17 /min Dr. Willam Estrada MD Work Phone: 6(339)413-961778 [place] [address] 04-08-2025 09:05-0400 SaO2% (BldA) [Mass fraction] 98 % Dr. Willam Estrada MD Work Phone: 0(824)366-609678 [place] [address] 04-08-2025 09:05-0400 Systolic blood pressure 125 mm[Hg] Dr. Willam Estrada MD Work Phone: 3(659)815-348337 [place] [address] 03-13-2025 15:52-0400 Body temperature 98.9 [degF] Dr. Willam Estrada MD Work Phone: 0(253)238-249978 [place] [address] 03-13-2025 15:52-0400 Diastolic blood pressure 90 mm[Hg] Dr. Willam Estrada MD Work Phone: 5(512)009-925137 [place] [address] 03-13-2025 15:52-0400 Heart rate 72 /min Dr. Willam Estrada MD Work Phone: 0(605)701-453378 [place] [address] 03-13-2025 15:52-0400 Respiratory rate 18 /min Dr. Willam Estrada MD Work Phone: 6(904)913-487837 [place] [address] 03-13-2025 15:52-0400 SaO2% (BldA) [Mass fraction] 94 % Dr. Willam Estrada MD Work Phone: 6(514)353-351737 [place] [address] 03-13-2025 15:52-0400 Systolic blood pressure 142 mm[Hg] Dr. Willam Estrada MD Work Phone: 2(952)812-558937 [place] [address] 03-13-2025 13:13-0400 Body height 167.[address] Willam Estrada MD Work Phone: 3(677)683-766837 [place] [address] 03-13-2025 13:13-0400 Body mass index (BMI) [Ratio] 30.8 kg/m2 Dr. Willam Estrada MD Work Phone: 6(644)255-457937 [place] [address] 03-13-2025 13:13-0400 Body weight 86.[address] Willam Estrada MD Work Phone: 6(266)747-960978 [place] [address] 03-13-2025 12:53-0400 Body mass index (BMI) [Ratio] 31.21 kg/m2 Rufus Clutter PA-C Work Phone: [facility] 03-13-2025 12:53-0400 Body temperature 98.4 [degF] Rufus Clutter PA-C Work Phone: [facility] 03-13-2025 12:53-0400 Body weight 87.7 kg Rufus Clutter PA-C Work Phone: [facility] 03-13-2025 12:53-0400 Diastolic blood pressure 77 mm[Hg] Rufus Clutter PA-C Work Phone: [facility] 03-13-2025 12:53-0400 Heart rate 76 /min Rufus Clutter PA-C Work Phone: [facility] 03-13-2025 12:53-0400 Respiratory rate 26 /min Rufus Clutter PA-C Work Phone: [facility] 03-13-2025 12:53-0400 SaO2% (BldA) [Mass fraction] 98 % Rufus Clutter PA-C Work Phone: [facility] 03-13-2025 12:53-0400 Systolic blood pressure 127 mm[Hg] Rufus Clutter PA-C Work Phone: [facility] 03-02-2025 15:45-0400 Diastolic blood pressure 66 mm[Hg] Jonnathan Mckeon DO Work Phone: [facility] 03-02-2025 15:45-0400 Systolic blood pressure 106 mm[Hg] Jonnathan Mckeon DO Work Phone: [facility] 03-02-2025 15:35-0400 Heart rate 77 /min Jonnathan Mckeon DO Work Phone: [facility] 03-02-2025 15:35-0400 SaO2% (BldA) [Mass fraction] 97 % Jonnathan Mckeon DO Work Phone: [facility] 02-25-2025 14:55-0400 Body temperature 98.4 [degF] Martha Praisler-Wood CHIEF PROGRAM OFFICER.UNDER CUTTING MACHINE OPERATOR Work Phone: [facility] 02-25-2025 14:55-0400 Diastolic blood pressure 74 mm[Hg] Martha Praisler-Wood CHIEF PROGRAM OFFICER.UNDER CUTTING MACHINE OPERATOR Work Phone: [facility] 02-25-2025 14:55-0400 Heart rate 81 /min Martha Praisler-Wood CHIEF PROGRAM OFFICER.UNDER CUTTING MACHINE OPERATOR Work Phone: [facility] 02-25-2025 14:55-0400 Respiratory rate 18 /min Martha Saenzlexie-Julio CHIEF PROGRAM OFFICER.UNDER CUTTING MACHINE OPERATOR Work Phone: [facility] 02-25-2025 14:55-0400 SaO2% (BldA) [Mass fraction] 97 % Martha Matute-Wood CHIEF PROGRAM OFFICER.UNDER CUTTING MACHINE OPERATOR Work Phone: [facility] 02-25-2025 14:55-0400 Systolic blood pressure 119 mm[Hg] Martharay Matute-Julio CHIEF PROGRAM OFFICER.UNDER CUTTING MACHINE OPERATOR Work Phone: [facility] 02-04-2025 15:36-0400 Body height 167.[address] Willam Estrada MD Work Phone: [facility] 02-04-2025 15:36-0400 Body mass index (BMI) [Ratio] 30.4 kg/m2 Dr. Willam Estrada MD Work Phone: [facility] 02-04-2025 15:36-0400 Body weight 85.[address] Willam Estrada MD Work Phone: [facility] 01-12-2025 13:31-0400 Body mass index (BMI) [Ratio] 31.35 kg/m2 Rufus Clutter PA-C Work Phone: [facility] 01-12-2025 13:31-0400 Body temperature 97.59 [degF] Rufus Clutter PA-C Work Phone: [facility] 01-12-2025 13:31-0400 Body weight 88.1 kg Rufus Clutter PA-C Work Phone: [facility] 01-12-2025 13:31-0400 Diastolic blood pressure 88 mm[Hg] Rufus Clutter PA-C Work Phone: [facility] 01-12-2025 13:31-0400 Heart rate 73 /min Rufus Clutter PA-C Work Phone: [facility] 01-12-2025 13:31-0400 Respiratory rate 18 /min Rufus Clutter PA-C Work Phone: [facility] 01-12-2025 13:31-0400 SaO2% (BldA) [Mass fraction] 98 % Rufus Clutter PA-C Work Phone: [facility] 01-12-2025 13:31-0400 Systolic blood pressure 160 mm[Hg] Rufus Clutter PA-C Work Phone: [facility] 11-25-2024 13:03-0400 Body mass index (BMI) [Ratio] 30.83 kg/m2 Leila Janeen PA-C Work Phone: [facility] 11-25-2024 13:03-0400 Body weight 86.64 kg Leila Janeen PA-C Work Phone: [facility] 11-25-2024 13:03-0400 Diastolic blood pressure 86 mm[Hg] Leila Janeen PA-C Work Phone: [facility] 11-25-2024 13:03-0400 Heart rate 83 /min Leila Janeen PA-C Work Phone: [facility] 11-25-2024 13:03-0400 Respiratory rate 14 /min Leila Janeen PA-C Work Phone: [facility] 11-25-2024 13:03-0400 SaO2% (BldA) [Mass fraction] 97 % Leila Janeen PA-C Work Phone: [facility] 11-25-2024 13:03-0400 Systolic blood pressure 124 mm[Hg] Leila Janeen PA-C Work Phone: [facility] 11-24-2024 13:41-0400 Body mass index (BMI) [Ratio] 31.22 kg/m2 Indigo Bustamanteer PA-C Work Phone: [facility] 11-24-2024 13:41-0400 Body weight 87.73 kg Indigo Bustamanteer PA-C Work Phone: [facility] 11-24-2024 13:41-0400 Diastolic blood pressure 70 mm[Hg] Indigo Bustamanteer PA-C Work Phone: [facility] 11-24-2024 13:41-0400 Heart rate 82 /min Indigo Bustamantejabari PA-C Work Phone: [facility] 11-24-2024 13:41-0400 SaO2% (BldA) [Mass fraction] 96 % Indigo Nichols PA-C Work Phone: [facility] 11-24-2024 13:41-0400 Systolic blood pressure 109 mm[Hg] Indigo Bustamantejabari PA-C Work Phone: [facility] 11-18-2024 15:52-0400 Body height 167.6 cm Willam Estrada MD Work Phone: [facility] 11-18-2024 15:52-0400 Body mass index (BMI) [Ratio] 31.21 kg/m2 Willam Estrada MD Work Phone: [facility] 11-18-2024 15:52-0400 Body temperature 97.59 [degF] Willam Estrada MD Work Phone: [facility] 11-18-2024 15:52-0400 Body weight 87.7 kg Willam Estrada MD Work Phone: [facility] 11-18-2024 15:52-0400 Diastolic blood pressure 70 mm[Hg] Willam Estrada MD Work Phone: [facility] 11-18-2024 15:52-0400 Heart rate 75 /min Willam Estrada MD Work Phone: [facility] 11-18-2024 15:52-0400 Respiratory rate 16 /min Willam Estrada MD Work Phone: [facility] 11-18-2024 15:52-0400 SaO2% (BldA) [Mass fraction] 98 % Willam Estrada MD Work Phone: [facility] 11-18-2024 15:52-0400 Systolic blood pressure 120 mm[Hg] Willam Estrada MD Work Phone: [facility] 11-16-2024 15:36-0400 Body height 167.[address] Willam Estrada MD Work Phone: 6(229)607-952237 [place] [address] 10-30-2024 16:05-0500 Body mass index (BMI) [Ratio] 31.1 kg/m2 Dr. Willam Estrada MD Work Phone: 0(277)766-228437 [place] [address] 10-30-2024 16:05-0500 Body weight 87.[address] Willam Estrada MD Work Phone: 4(752)687-745537 [place] [address] 10-30-2024 16:05-0500 Diastolic blood pressure 75 mm[Hg] Dr. Willam Estrada MD Work Phone: 4(841)894-524837 [place] [address] 10-30-2024 16:05-0500 Heart rate 88 /min Dr. Willam Estrada MD Work Phone: 6(787)581-719837 [place] [address] 10-30-2024 16:05-0500 Respiratory rate 18 /min Dr. Willam Estrada MD Work Phone: 1(561)964-208237 [place] [address] 10-30-2024 16:05-0500 SaO2% (BldA) [Mass fraction] 94 % Dr. Willam Estrada MD Work Phone: 6(861)786-040437 [place] [address] 10-30-2024 16:05-0500 Systolic blood pressure 116 mm[Hg] Dr. Willam Estrada MD Work Phone: 9(680)058-760837 [place] [address] 10-16-2024 14:55-0500 Diastolic blood pressure 82 mm[Hg] Dr. Willam Estrada MD Work Phone: 2(659)089-258237 [place] [address] 10-16-2024 14:55-0500 Heart rate 83 /min Dr. Willam Estrada MD Work Phone: 6(329)047-045737 [place] [address] 10-16-2024 14:55-0500 Respiratory rate 18 /min Dr. Willam Estrada MD Work Phone: 1(932)989-079637 [place] [address] 10-16-2024 14:55-0500 SaO2% (BldA) [Mass fraction] 91 % Dr. Willam Estrada MD Work Phone: [facility] 10-16-2024 14:55-0500 Systolic blood pressure 126 mm[Hg] Dr. Willam Estrada MD Work Phone: [facility] 08-12-2024 16:10-0500 Body mass index (BMI) [Ratio] 31.1 kg/m2 Deanna Latasha CHIEF PROGRAM OFFICER.UNDER CUTTING MACHINE OPERATOR Work Phone: [facility] 08-12-2024 16:10-0500 Body temperature 96.4 [degF] Deanna Latasha CHIEF PROGRAM OFFICER.UNDER CUTTING MACHINE OPERATOR Work Phone: [facility] 08-12-2024 16:10-0500 Body weight 87.4 kg Deanna Latasha CHIEF PROGRAM OFFICER.UNDER CUTTING MACHINE OPERATOR Work Phone: [facility] 08-12-2024 16:10-0500 Diastolic blood pressure 81 mm[Hg] Deanna Latasha CHIEF PROGRAM OFFICER.UNDER CUTTING MACHINE OPERATOR Work Phone: [facility] 08-12-2024 16:10-0500 Heart rate 89 /min Deanna Latasha CHIEF PROGRAM OFFICER.UNDER CUTTING MACHINE OPERATOR Work Phone: [facility] 08-12-2024 16:10-0500 Respiratory rate 24 /min Deanna Latasha CHIEF PROGRAM OFFICER.UNDER CUTTING MACHINE OPERATOR Work Phone: [facility] 08-12-2024 16:10-0500 SaO2% (BldA) [Mass fraction] 98 % Deanna Latasha CHIEF PROGRAM OFFICER.UNDER CUTTING MACHINE OPERATOR Work Phone: [facility] 08-12-2024 16:10-0500 Systolic blood pressure 142 mm[Hg] Deanna Latasha CHIEF PROGRAM OFFICER.UNDER CUTTING MACHINE OPERATOR Work Phone: [facility] 08-11-2024 14:44-0500 Diastolic blood pressure 74 mm[Hg] Mona Corrigan MD Work Phone: [facility] 08-11-2024 14:44-0500 Heart rate 88 /min Mona Corrigan MD Work Phone: [facility] 08-11-2024 14:44-0500 Respiratory rate 20 /min Mona Corrigan MD Work Phone: [facility] 08-11-2024 14:44-0500 SaO2% (BldA) [Mass fraction] 98 % Mona Corrigan MD Work Phone: [facility] 08-11-2024 14:44-0500 Systolic blood pressure 136 mm[Hg] Mona Corrigan MD Work Phone: 9(551)524-996729 [place] [address] 08-09-2024 19:11-0500 Body temperature 97 [degF] Dr. Willam Estrada MD Work Phone: 9(084)369-229737 [place] [address] 08-09-2024 19:11-0500 Diastolic blood pressure 90 mm[Hg] Dr. Willam Estrada MD Work Phone: 5(577)421-625237 [place] [address] 08-09-2024 19:11-0500 Heart rate 78 /min Dr. Willam Estrada MD Work Phone: 8(355)536-342637 [place] [address] 08-09-2024 19:11-0500 Respiratory rate 20 /min Dr. Willam Estrada MD Work Phone: 4(940)444-293778 [place] [address] 08-09-2024 19:11-0500 SaO2% (BldA) [Mass fraction] 98 % Dr. Willam Estrada MD Work Phone: 0(702)200-012178 [place] [address] 08-09-2024 19:11-0500 Systolic blood pressure 146 mm[Hg] Dr. Willam Estrada MD Work Phone: 6(720)926-331178 [place] [address] 08-09-2024 15:31-0500 Body mass index (BMI) [Ratio] 31.6 kg/m2 Dr. Willam Estrada MD Work Phone: 5(556)716-516678 [place] [address] 08-09-2024 15:31-0500 Body weight 88.[address] Willam Estrada MD Work Phone: 5(255)754-165578 [place] [address] 08-06-2024 00:00-0500 Body temperature 99.2 [degF] Dr. Willam Estrada MD Work Phone: 3(518)151-635837 [place] [address] 08-06-2024 00:00-0500 Diastolic blood pressure 90 mm[Hg] Dr. Willam Estrada MD Work Phone: 7(003)188-044937 [place] [address] 08-06-2024 00:00-0500 Heart rate 82 /min Dr. Willam Estrada MD Work Phone: 7(600)927-900537 [place] [address] 08-06-2024 00:00-0500 Systolic blood pressure 163 mm[Hg] Dr. Willam Estrada MD Work Phone: 0(439)338-747637 [place] [address] 08-05-2024 20:10-0500 Body mass index (BMI) [Ratio] 34.3 kg/m2 Dr. Willam Estrada MD Work Phone: 0(519)781-317837 [place] [address] 08-05-2024 20:10-0500 Body weight 90.[address] Willam Estrada MD Work Phone: 9(462)774-407037 [place] [address] 08-05-2024 10:41-0500 Body temperature 96.4 [degF] Dr. Willam Estrada MD Work Phone: 4(954)501-210637 [place] [address] 08-05-2024 10:41-0500 Diastolic blood pressure 87 mm[Hg] Dr. Willam Estrada MD Work Phone: 4(553)203-206937 [place] [address] 08-05-2024 10:41-0500 Heart rate 84 /min Dr. Willam Estrada MD Work Phone: 0(199)610-456337 [place] [address] 08-05-2024 10:41-0500 Respiratory rate 18 /min Dr. Willam Estrada MD Work Phone: 3(352)693-913337 [place] [address] 08-05-2024 10:41-0500 SaO2% (BldA) [Mass fraction] 95 % Dr. Willam Estrada MD Work Phone: 5(094)975-207537 [place] [address] 08-05-2024 10:41-0500 Systolic blood pressure 137 mm[Hg] Dr. Willam Estrada MD Work Phone: 0(845)483-803737 [place] [address] 08-05-2024 03:05-0500 Body mass index (BMI) [Ratio] 32.8 kg/m2 Dr. Willam Estrada MD Work Phone: [facility] 08-05-2024 03:05-0500 Body weight 92.[address] Willam Estrada MD Work Phone: [facility] 08-02-2024 17:31-0500 Inhaled oxygen flow rate 2 L/min Dr. Willam Estrada MD Work Phone: [facility] 08-01-2024 13:56-0500 Body mass index (BMI) [Ratio] 31.31 kg/m2 [facility] CHIEF PROGRAM OFFICER.UNDER CUTTING MACHINE OPERATOR Work Phone: [facility] 08-01-2024 13:56-0500 Body temperature 97.9 [degF] [facility] CHIEF PROGRAM OFFICER.UNDER CUTTING MACHINE OPERATOR Work Phone: [facility] 08-01-2024 13:56-0500 Body weight 88 kg [facility] CHIEF PROGRAM OFFICER.UNDER CUTTING MACHINE OPERATOR Work Phone: [facility] 08-01-2024 13:56-0500 Diastolic blood pressure 68 mm[Hg] [facility] CHIEF PROGRAM OFFICER.UNDER CUTTING MACHINE OPERATOR Work Phone: [facility] 08-01-2024 13:56-0500 Heart rate 102 /min [facility] CHIEF PROGRAM OFFICER.UNDER CUTTING MACHINE OPERATOR Work Phone: [facility] 08-01-2024 13:56-0500 Respiratory rate 18 /min [facility] CHIEF PROGRAM OFFICER.UNDER CUTTING MACHINE OPERATOR Work Phone: [facility] 08-01-2024 13:56-0500 SaO2% (BldA) [Mass fraction] 97 % [facility] CHIEF PROGRAM OFFICER.UNDER CUTTING MACHINE OPERATOR Work Phone: [facility] 08-01-2024 13:56-0500 Systolic blood pressure 122 mm[Hg] [facility] CHIEF PROGRAM OFFICER.UNDER CUTTING MACHINE OPERATOR Work Phone: [facility] 07-29-2024 16:38-0500 Body mass index (BMI) [Ratio] 30.96 kg/m2 Willam Estrada MD Work Phone: [facility] 07-29-2024 16:38-0500 Body weight 87 kg Willam Estrada MD Work Phone: [facility] 07-29-2024 16:38-0500 Diastolic blood pressure 74 mm[Hg] Willam Estrada MD Work Phone: [facility] 07-29-2024 16:38-0500 Heart rate 97 /min Willam Estrada MD Work Phone: [facility] 07-29-2024 16:38-0500 Respiratory rate 16 /min Willam Estrada MD Work Phone: [facility] 07-29-2024 16:38-0500 Systolic blood pressure 108 mm[Hg] Willam Estrada MD Work Phone: [facility] 07-29-2024 13:38-0500 Body mass index (BMI) [Ratio] 30.83 kg/m2 Indigo Bustamanteer PA-C Work Phone: [facility] 07-29-2024 13:38-0500 Body weight 86.64 kg Indigo Bustamanteer PA-C Work Phone: [facility] 07-29-2024 13:38-0500 Diastolic blood pressure 74 mm[Hg] Indigo Bustamanteer PA-C Work Phone: [facility] 07-29-2024 13:38-0500 Heart rate 92 /min Indigo Bustamanteer PA-C Work Phone: [facility] 07-29-2024 13:38-0500 SaO2% (BldA) [Mass fraction] 97 % Indigo Bustamanteer PA-C Work Phone: [facility] 07-29-2024 13:38-0500 Systolic blood pressure 109 mm[Hg] Indigo Bustamanteer PA-C Work Phone: [facility] 05-19-2024 19:00-0400 Diastolic blood pressure 70 mm[Hg] Willam Estrada MD Work Phone: [facility] Comment on above: using machine 05-19-2024 19:00-0400 Systolic blood pressure 110 mm[Hg] Willam Estrada MD Work Phone: [facility] Comment on above: using machine 05-19-2024 18:54-0400 Body mass index (BMI) [Ratio] 31.46 kg/m2 Willam Estrada MD Work Phone: [facility] 05-19-2024 18:54-0400 Body temperature 98.6 [degF] Willam Estrada MD Work Phone: [facility] 05-19-2024 18:54-0400 Body weight 88.4 kg Willam Estrada MD Work Phone: [facility] 05-19-2024 18:54-0400 Heart rate 82 /min Willam Estrada MD Work Phone: [facility] 05-19-2024 18:54-0400 Respiratory rate 16 /min Willam Estrada MD Work Phone: [facility] 05-19-2024 18:54-0400 SaO2% (BldA) [Mass fraction] 97 % Willam Estrada MD Work Phone: [facility] 05-07-2024 14:42-0400 Diastolic blood pressure 78 mm[Hg] Mona Corrigan MD Work Phone: [facility] 05-07-2024 14:42-0400 Heart rate 89 /min Mona Corrigan MD Work Phone[facility] [facility] 05-07-2024 14:42-0400 Respiratory rate 14 /min Mona Corrigan MD Work Phone: [facility] 05-07-2024 14:42-0400 SaO2% (BldA) [Mass fraction] 96 % Mona Corrigan MD Work Phone: [facility] 05-07-2024 14:42-0400 Systolic blood pressure 118 mm[Hg] Mona Corrigan MD Work Phone: [facility] 04-20-2024 12:25-0400 Diastolic blood pressure 70 mm[Hg] Willam Estrada MD Work Phone: [facility] 04-20-2024 12:25-0400 Systolic blood pressure 100 mm[Hg] Willam Estrada MD Work Phone: [facility] 04-20-2024 11:15-0400 Body mass index (BMI) [Ratio] 31.49 kg/m2 Willam Estrada MD Work Phone: [facility] 04-20-2024 11:15-0400 Body temperature 97.59 [degF] Willam Estrada MD Work Phone: [facility] 04-20-2024 11:15-0400 Body weight 88.5 kg Willam Estrada MD Work Phone: [facility] 04-20-2024 11:15-0400 Heart rate 91 /min Willam Estrada MD Work Phone: [facility] 04-20-2024 11:15-0400 Respiratory rate 18 /min Willam Estrada MD Work Phone: [facility] 04-20-2024 11:15-0400 SaO2% (BldA) [Mass fraction] 98 % Willam Estrada MD Work Phone: [facility] 03-30-2024 14:49-0400 Diastolic blood pressure 60 mm[Hg] Willam Estrada MD Work Phone: [facility] 03-30-2024 14:49-0400 Systolic blood pressure 92 mm[Hg] Willam Estrada MD Work Phone: [facility] 03-30-2024 14:42-0400 Body mass index (BMI) [Ratio] 31.04 kg/m2 Willam Estrada MD Work Phone: [facility] 03-30-2024 14:42-0400 Body temperature 97.39 [degF] Willam Estrada MD Work Phone: [facility] 03-30-2024 14:42-0400 Body weight 87.23 kg Willam Estrada MD Work Phone: [facility] 03-30-2024 14:42-0400 Heart rate 86 /min Willam Estrada MD Work Phone: [facility] 03-30-2024 14:42-0400 Respiratory rate 18 /min Willam Estrada MD Work Phone: [facility] 03-30-2024 14:42-0400 SaO2% (BldA) [Mass fraction] 98 % Willam Estrada MD Work Phone: [facility] 03-20-2024 15:54-0400 Body mass index (BMI) [Ratio] 30.96 kg/m2 Deena Ivey CHIEF PROGRAM OFFICER.UNDER CUTTING MACHINE OPERATOR Work Phone: [facility] 03-20-2024 15:54-0400 Body temperature 98.29 [degF] Deena Ivey CHIEF PROGRAM OFFICER.UNDER CUTTING MACHINE OPERATOR Work Phone: [facility] 03-20-2024 15:54-0400 Body weight 87 kg Deena Ivey CHIEF PROGRAM OFFICER.UNDER CUTTING MACHINE OPERATOR Work Phone: [facility] 03-20-2024 15:54-0400 Diastolic blood pressure 80 mm[Hg] Deena Ivey CHIEF PROGRAM OFFICER.UNDER CUTTING MACHINE OPERATOR Work Phone: [facility] 03-20-2024 15:54-0400 Heart rate 108 /min Deena Ivey CHIEF PROGRAM OFFICER.UNDER CUTTING MACHINE OPERATOR Work Phone: [facility] 03-20-2024 15:54-0400 Respiratory rate 18 /min Deena Ivey CHIEF PROGRAM OFFICER.UNDER CUTTING MACHINE OPERATOR Work Phone: [facility] 03-20-2024 15:54-0400 SaO2% (BldA) [Mass fraction] 97 % Deena Ivey CHIEF PROGRAM OFFICER.UNDER CUTTING MACHINE OPERATOR Work Phone: [facility] 03-20-2024 15:54-0400 Systolic blood pressure 138 mm[Hg] Deena Ivey CHIEF PROGRAM OFFICER.UNDER CUTTING MACHINE OPERATOR Work Phone: [facility] 03-04-2024 14:31-0400 Body mass index (BMI) [Ratio] 31.24 kg/m2 Felipe Pendlebury CHIEF PROGRAM OFFICER.UNDER CUTTING MACHINE OPERATOR Work Phone: [facility] 03-04-2024 14:31-0400 Body temperature 97.9 [degF] Felipe Allenamy CHIEF PROGRAM OFFICER.UNDER CUTTING MACHINE OPERATOR Work Phone: [facility] 03-04-2024 14:31-0400 Body weight 87.8 kg Felipe Allenamy CHIEF PROGRAM OFFICER.UNDER CUTTING MACHINE OPERATOR Work Phone: [facility] 03-04-2024 14:31-0400 Diastolic blood pressure 82 mm[Hg] Felipe Allenbury CHIEF PROGRAM OFFICER.UNDER CUTTING MACHINE OPERATOR Work Phone: [facility] 03-04-2024 14:31-0400 Heart rate 103 /min Felipe Allenbury CHIEF PROGRAM OFFICER.UNDER CUTTING MACHINE OPERATOR Work Phone: [facility] 03-04-2024 14:31-0400 Respiratory rate 18 /min Felipe Allenamy CHIEF PROGRAM OFFICER.UNDER CUTTING MACHINE OPERATOR Work Phone: [facility] 03-04-2024 14:31-0400 SaO2% (BldA) [Mass fraction] 97 % Felipe Allenamy CHIEF PROGRAM OFFICER.UNDER CUTTING MACHINE OPERATOR Work Phone: [facility] 03-04-2024 14:31-0400 Systolic blood pressure 138 mm[Hg] Felipe Allenamy CHIEF PROGRAM OFFICER.UNDER CUTTING MACHINE OPERATOR Work Phone: [facility] 02-18-2024 15:08-0400 Body mass index (BMI) [Ratio] 31.8 kg/m2 Allegra Jamaica CHIEF PROGRAM OFFICER.UNDER CUTTING MACHINE OPERATOR Work Phone: [facility] 02-18-2024 15:08-0400 Body weight 89.36 kg Allegra Jamaica CHIEF PROGRAM OFFICER.UNDER CUTTING MACHINE OPERATOR Work Phone: [facility] 02-18-2024 15:08-0400 Diastolic blood pressure 74 mm[Hg] Allegra Jamaica CHIEF PROGRAM OFFICER.UNDER CUTTING MACHINE OPERATOR Work Phone: [facility] 02-18-2024 15:08-0400 Heart rate 75 /min Allegra Jamaica CHIEF PROGRAM OFFICER.UNDER CUTTING MACHINE OPERATOR Work Phone: [facility] 02-18-2024 15:08-0400 SaO2% (BldA) [Mass fraction] 98 % Allegra Berumen CHIEF PROGRAM OFFICER.UNDER CUTTING MACHINE OPERATOR Work Phone: [facility] 02-18-2024 15:08-0400 Systolic blood pressure 140 mm[Hg] Allegra Berumen APRN.UNDER CUTTING MACHINE OPERATOR Work Phone: [facility] 11-28-2023 10:35-0400 Body temperature 97.9 [degF] Dr. Willam Estrada Work Phone: [facility] 11-28-2023 10:35-0400 Diastolic blood pressure 57 mm[Hg] Dr. Willam Estrada Work Phone: [facility] 11-28-2023 10:35-0400 Heart rate 77 /min Dr. Willam Estrada Work Phone: [facility] 11-28-2023 10:35-0400 Respiratory rate 16 /min Dr. Willam Estrada Work Phone: [facility] 11-28-2023 10:35-0400 SaO2% (BldA) [Mass fraction] 95 % Dr. Willam Estrada Work Phone: [facility] 11-28-2023 10:35-0400 Systolic blood pressure 86 mm[Hg] Dr. Willam Estrada Work Phone: [facility] 11-28-2023 08:31-0400 Body height 167.[address] Willam Estrada Work Phone: [facility] 11-28-2023 08:31-0400 Body mass index (BMI) [Ratio] 31.4 kg/m2 Dr. Willam Estrada Work Phone: [facility] 11-28-2023 08:31-0400 Body weight 88.[address] Willam Estrada Work Phone: [facility] 11-19-2023 16:57-0400 Body height 167.6 cm Willam Estrada MD Work Phone: [facility] 11-19-2023 16:57-0400 Body temperature 97.7 [degF] Willam Estrada MD Work Phone: [facility] 11-19-2023 16:57-0400 Body weight 89.81 kg Willam Estrada MD Work Phone: [facility] 11-19-2023 16:57-0400 Diastolic blood pressure 60 mm[Hg] Willam Estrada MD Work Phone: [facility] 11-19-2023 16:57-0400 Heart rate 78 /min Willam Estrada MD Work Phone: [facility] 11-19-2023 16:57-0400 Respiratory rate 14 /min Willam Estrada MD Work Phone: [facility] 11-19-2023 16:57-0400 SaO2% (BldA) [Mass fraction] 98 % Willam Estrada MD Work Phone: [facility] 11-19-2023 16:57-0400 Systolic blood pressure 112 mm[Hg] Willam Estrdaa MD Work Phone: [facility] 11-11-2023 11:01-0500 Diastolic blood pressure 78 mm[Hg] Justyna Lorimor CHIEF PROGRAM OFFICER.UNDER CUTTING MACHINE OPERATOR Work Phone: [facility] 11-11-2023 11:01-0500 Heart rate 79 /min Justyna Lorimor CHIEF PROGRAM OFFICER.UNDER CUTTING MACHINE OPERATOR Work Phone: [facility] 11-11-2023 11:01-0500 Respiratory rate 16 /min Justyna Lorimor CHIEF PROGRAM OFFICER.UNDER CUTTING MACHINE OPERATOR Work Phone: [facility] 11-11-2023 11:01-0500 SaO2% (BldA) [Mass fraction] 96 % Justyna Lorimor CHIEF PROGRAM OFFICER.UNDER CUTTING MACHINE OPERATOR Work Phone: [facility] 11-11-2023 11:01-0500 Systolic blood pressure 132 mm[Hg] Justyna Lorimor CHIEF PROGRAM OFFICER.UNDER CUTTING MACHINE OPERATOR Work Phone: [facility] 11-11-2023 11:00-0500 Body weight 90.72 kg Pulm Wstr Work Phone: [facility] 11-05-2023 14:43-0500 Body height 167.6 cm Mona Corrigan MD Work Phone: [facility] 11-05-2023 14:43-0500 Body temperature 97.59 [degF] Mona Corrigan MD Work Phone: [facility] 11-05-2023 14:43-0500 Body weight 90.54 kg Mona Corrigan MD Work Phone: [facility] 11-05-2023 14:43-0500 Diastolic blood pressure 88 mm[Hg] Mona Corrigan MD Work Phone: [facility] 11-05-2023 14:43-0500 Heart rate 84 /min Mona Corrigan MD Work Phone: [facility] 11-05-2023 14:43-0500 SaO2% (BldA) [Mass fraction] 97 % Mona Corrigan MD Work Phone: [facility] 11-05-2023 14:43-0500 Systolic blood pressure 134 mm[Hg] Mona Corrigan MD Work Phone: [facility] 09-20-2023 19:53-0500 Diastolic blood pressure 74 mm[Hg] Dr. Willam Estrada Work Phone: [facility] 09-20-2023 19:53-0500 Heart rate 81 /min Dr. Willam Estrada Work Phone: [facility] 09-20-2023 19:53-0500 Respiratory rate 16 /min Dr. Willam Estrada Work Phone: [facility] 09-20-2023 19:53-0500 SaO2% (BldA) [Mass fraction] 97 % Dr. Willam Estrada Work Phone: [facility] 09-20-2023 19:53-0500 Systolic blood pressure 162 mm[Hg] Dr. Willam Estrada Work Phone: [facility] 09-20-2023 17:08-0500 Body temperature 96.9 [degF] Dr. Willam Estrada Work Phone: [facility] 09-20-2023 17:05-0500 Body height 167.[address] Willam Estrada Work Phone: [facility] 09-20-2023 17:05-0500 Body mass index (BMI) [Ratio] 32.5 kg/m2 Dr. Willam Estrada Work Phone: [facility] 09-20-2023 17:05-0500 Body weight 91.[address] Willam Estrada Work Phone: [facility] 07-23-2023 15:53-0500 Diastolic blood pressure 84 mm[Hg] Willam Estrada MD Work Phone: [facility] 07-23-2023 15:53-0500 Systolic blood pressure 132 mm[Hg] Willam Estrada MD Work Phone: [facility] 07-23-2023 15:13-0500 Body temperature 98.8 [degF] Willam Estrada MD Work Phone: [facility] 07-23-2023 15:13-0500 Body weight 90.72 kg Willam Estrada MD Work Phone: [facility] 07-23-2023 15:13-0500 Heart rate 70 /min Willam Estrada MD Work Phone: [facility] 07-23-2023 15:13-0500 Respiratory rate 18 /min Willam Estrada MD Work Phone: [facility] 07-23-2023 15:13-0500 SaO2% (BldA) [Mass fraction] 98 % Willam Estrada MD Work Phone: [facility] 07-01-2023 08:45-0400 Body temperature 97.3 [degF] Dr. Willam Estrada Work Phone: 4(910)927-029237 [place] [address] 07-01-2023 08:45-0400 Diastolic blood pressure 57 mm[Hg] Dr. Willam Estrada Work Phone: 5(922)813-551837 [place] [address] 07-01-2023 08:45-0400 Heart rate 68 /min Dr. Willam Estrada Work Phone: 8(781)279-482737 [place] [address] 07-01-2023 08:45-0400 Respiratory rate 18 /min Dr. Willam Estrada Work Phone: 0(971)441-807237 [place] [address] 07-01-2023 08:45-0400 SaO2% (BldA) [Mass fraction] 96 % Dr. Willam Estrada Work Phone: 5(816)811-291837 [place] [address] 07-01-2023 08:45-0400 Systolic blood pressure 100 mm[Hg] Dr. Willam Estrada Work Phone: 8(940)397-290837 [place] [address] 07-01-2023 08:19-0400 Inhaled oxygen flow rate 4 L/min Dr. Willam Estrada Work Phone: 3(378)875-629337 [place] [address] 07-01-2023 07:29-0400 Body height 167.[address] Willam Estrada Work Phone: 6(578)796-812037 [place] [address] 07-01-2023 07:29-0400 Body mass index (BMI) [Ratio] 32 kg/m2 Dr. Willam Estrada Work Phone: 0(415)300-211937 [place] [address] 07-01-2023 07:29-0400 Body weight [address] Willam Estrada Work Phone: 2(711)931-583237 [place] [address] 06-28-2023 00:27-0400 Diastolic blood pressure 76 mm[Hg] Dr. Willam Estrada Work Phone: 8(471)906-945137 [place] [address] 06-28-2023 00:27-0400 Heart rate 80 /min Dr. Willam Estrdaa Work Phone: 0(477)049-778237 [place] [address] 06-28-2023 00:27-0400 Respiratory rate 20 /min Dr. Willam Estrada Work Phone: [facility] 06-28-2023 00:27-0400 SaO2% (BldA) [Mass fraction] 93 % Dr. Willam Estrada Work Phone: [facility] 06-28-2023 00:27-0400 Systolic blood pressure 142 mm[Hg] Dr. Willam Estrada Work Phone: [facility] 06-27-2023 23:19-0400 Body temperature 97.5 [degF] Dr. Willam Estrada Work Phone: 5(435)290-227878 [place] [address] 06-27-2023 22:14-0400 Body height 167.[address] Willam Estrada Work Phone: 3(745)333-219078 [place] [address] 06-27-2023 22:14-0400 Body mass index (BMI) [Ratio] 32.7 kg/m2 Dr. Willam Estrada Work Phone: [facility] 06-27-2023 22:14-0400 Body weight 91.[address] Willam Estrada Work Phone: [facility] 05-31-2023 14:03-0400 Body weight 90.27 kg Allegra Jamaica CHIEF PROGRAM OFFICER.UNDER CUTTING MACHINE OPERATOR Work Phone: [facility] 05-31-2023 14:03-0400 Diastolic blood pressure 60 mm[Hg] Allegra Jamaica CHIEF PROGRAM OFFICER.UNDER CUTTING MACHINE OPERATOR Work Phone: [facility] 05-31-2023 14:03-0400 Heart rate 64 /min Allegra Jamaica CHIEF PROGRAM OFFICER.UNDER CUTTING MACHINE OPERATOR Work Phone: [facility] 05-31-2023 14:03-0400 SaO2% (BldA) [Mass fraction] 97 % Allegra Jamaica CHIEF PROGRAM OFFICER.UNDER CUTTING MACHINE OPERATOR Work Phone: [facility] 05-31-2023 14:03-0400 Systolic blood pressure 100 mm[Hg] Allegra Jamaica CHIEF PROGRAM OFFICER.UNDER CUTTING MACHINE OPERATOR Work Phone: [facility] 05-30-2023 14:18-0400 Body height 167.[address] Willam Estrada Work Phone: [facility] 05-30-2023 14:18-0400 Body mass index (BMI) [Ratio] 32.1 kg/m2 Dr. Willam Estrada Work Phone: [facility] 05-30-2023 14:18-0400 Body temperature 98 [degF] Dr. Willam Estrada Work Phone: [facility] 05-30-2023 14:18-0400 Body weight 90.[address] Willam Estrada Work Phone: [facility] 05-30-2023 14:18-0400 Diastolic blood pressure 86 mm[Hg] Dr. Willam Estrada Work Phone: [facility] 05-30-2023 14:18-0400 Heart rate 76 /min Dr. Willam Estrada Work Phone: [facility] 05-30-2023 14:18-0400 Respiratory rate 14 /min Dr. Willam Estrada Work Phone: [facility] 05-30-2023 14:18-0400 SaO2% (BldA) [Mass fraction] 98 % Dr. Willam Estrada Work Phone: [facility] 05-30-2023 14:18-0400 Systolic blood pressure 137 mm[Hg] Dr. Willam Estrada Work Phone: [facility] 05-28-2023 18:20-0400 Body temperature 97.7 [degF] Deena Ivey CHIEF PROGRAM OFFICER.UNDER CUTTING MACHINE OPERATOR Work Phone: [facility] 05-28-2023 18:20-0400 Body weight 90.54 kg Deena Ivey CHIEF PROGRAM OFFICER.UNDER CUTTING MACHINE OPERATOR Work Phone: [facility] 05-28-2023 18:20-0400 Diastolic blood pressure 88 mm[Hg] Deena Ivey CHIEF PROGRAM OFFICER.UNDER CUTTING MACHINE OPERATOR Work Phone: [facility] 05-28-2023 18:20-0400 Heart rate 64 /min Deena Ivey CHIEF PROGRAM OFFICER.UNDER CUTTING MACHINE OPERATOR Work Phone: [facility] 05-28-2023 18:20-0400 Respiratory rate 16 /min Deena Ivey CHIEF PROGRAM OFFICER.UNDER CUTTING MACHINE OPERATOR Work Phone: [facility] 05-28-2023 18:20-0400 SaO2% (BldA) [Mass fraction] 98 % Deena Ivey CHIEF PROGRAM OFFICER.UNDER CUTTING MACHINE OPERATOR Work Phone: [facility] 05-28-2023 18:20-0400 Systolic blood pressure 144 mm[Hg] Deena Ivey CHIEF PROGRAM OFFICER.UNDER CUTTING MACHINE OPERATOR Work Phone: [facility] 05-26-2023 23:37-0400 Diastolic blood pressure 71 mm[Hg] Dr. Willam Estrada Work Phone: [facility] 05-26-2023 23:37-0400 Heart rate 80 /min Dr. Willam Estrada Work Phone: [facility] 05-26-2023 23:37-0400 Respiratory rate 89 /min Dr. Willam Estrada Work Phone: [facility] 05-26-2023 23:37-0400 SaO2% (BldA) [Mass fraction] 94 % Dr. Willam Estrada Work Phone: [facility] 05-26-2023 23:37-0400 Systolic blood pressure 167 mm[Hg] Dr. Willam Estrada Work Phone: [facility] 05-26-2023 21:43-0400 Body temperature 99 [degF] Dr. Willam Estrada Work Phone: [facility] 05-26-2023 21:39-0400 Body height 167.[address] Willam Estrada Work Phone: [facility] 05-26-2023 21:39-0400 Body mass index (BMI) [Ratio] 32.8 kg/m2 Dr. Willam Estrada Work Phone: [facility] 05-26-2023 21:39-0400 Body weight 92.[address] Willam Estrada Work Phone: [facility] 04-24-2023 13:34-0400 Body height 167.6 cm Leila Janeen PA-C Work Phone: [facility] 04-24-2023 13:34-0400 Body weight 91.17 kg Leila Janeen PA-C Work Phone: [facility] 04-24-2023 13:34-0400 Diastolic blood pressure 80 mm[Hg] Leila Janeen PA-C Work Phone: [facility] 04-24-2023 13:34-0400 Heart rate 76 /min Leila Janeen PA-C Work Phone: [facility] 04-24-2023 13:34-0400 Respiratory rate 14 /min Leila Janeen PA-C Work Phone: [facility] 04-24-2023 13:34-0400 SaO2% (BldA) [Mass fraction] 96 % Leila Janeen PA-C Work Phone: [facility] 04-24-2023 13:34-0400 Systolic blood pressure 118 mm[Hg] Leila Janeen PA-C Work Phone: [facility] 04-24-2023 13:08-0400 Body height 164.6 cm Pulm Wstr Work Phone: [facility] 04-24-2023 13:08-0400 Body weight 91.17 kg Pulm Wstr Work Phone: [facility] 04-24-2023 13:08-0400 Heart rate 75 /min Pulm Wstr Work Phone: [facility] 04-24-2023 13:08-0400 Respiratory rate 14 /min Pulm Wstr Work Phone: [facility] 04-24-2023 13:08-0400 SaO2% (BldA) [Mass fraction] 97 % Pulm Wstr Work Phone: [facility] 01-04-2023 15:29-0400 Body height 167.[address] Willam Estrada Work Phone: [facility] 01-04-2023 15:29-0400 Body mass index (BMI) [Ratio] 33.2 kg/m2 Dr. Willam Estrada Work Phone: [facility] 01-04-2023 15:29-0400 Body weight 93.[address] Willam Estrada Work Phone: [facility] 01-04-2023 15:29-0400 Diastolic blood pressure 96 mm[Hg] Dr. Willam Estrada Work Phone: [facility] 01-04-2023 15:29-0400 Heart rate 71 /min Dr. Willam Estrada Work Phone: [facility] 01-04-2023 15:29-0400 SaO2% (BldA) [Mass fraction] 97 % Dr. Willam Estrada Work Phone: [facility] 01-04-2023 15:29-0400 Systolic blood pressure 157 mm[Hg] Dr. Willam Estrada Work Phone: [facility] 12-29-2022 23:11-0400 Diastolic blood pressure 89 mm[Hg] [facility] 12-29-2022 23:11-0400 Heart rate 93 /min [facility] 12-29-2022 23:11-0400 Respiratory rate 24 /min [facility] 12-29-2022 23:11-0400 SaO2% (BldA) [Mass fraction] 93 % [facility] 12-29-2022 23:11-0400 Systolic blood pressure 141 mm[Hg] [facility] 12-29-2022 21:39-0400 Body temperature 97.1 [degF] [facility] 12-29-2022 20:00-0400 Body height 167.[address] [facility] 12-29-2022 20:00-0400 Body mass index (BMI) [Ratio] 33.7 kg/m2 [facility] 12-29-2022 20:00-0400 Body weight 94.[address] [facility] 12-21-2022 13:36-0400 Body weight 92.53 kg Leila Janeen PA-C Work Phone: [facility] 12-21-2022 13:36-0400 Diastolic blood pressure 70 mm[Hg] Leila Janeen PA-C Work Phone: [facility] 12-21-2022 13:36-0400 Heart rate 86 /min Leila Janeen PA-C Work Phone: [facility] 12-21-2022 13:36-0400 Respiratory rate 18 /min Leila Janeen PA-C Work Phone: [facility] 12-21-2022 13:36-0400 SaO2% (BldA) [Mass fraction] 94 % Leila Janeen PA-C Work Phone: [facility] 12-21-2022 13:36-0400 Systolic blood pressure 108 mm[Hg] Leila Janeen PA-C Work Phone: [facility] 12-18-2022 19:15-0400 Body temperature 97.3 [degF] Willam Estrada MD Work Phone: [facility] 12-18-2022 19:15-0400 Body weight 91.17 kg Willam Estrada MD Work Phone: [facility] 12-18-2022 19:15-0400 Diastolic blood pressure 64 mm[Hg] Willam Estrada MD Work Phone: [facility] 12-18-2022 19:15-0400 Heart rate 81 /min Willam Estrada MD Work Phone: [facility] 12-18-2022 19:15-0400 Respiratory rate 18 /min Willam Estrada MD Work Phone: [facility] 12-18-2022 19:15-0400 SaO2% (BldA) [Mass fraction] 97 % Willam Estrada MD Work Phone: [facility] 12-18-2022 19:15-0400 Systolic blood pressure 104 mm[Hg] Willam Estrada MD Work Phone: [facility] 11-21-2022 16:06-0400 Body temperature 98.4 [degF] Deena Ivey CHIEF PROGRAM OFFICER.UNDER CUTTING MACHINE OPERATOR Work Phone: [facility] 11-21-2022 16:06-0400 Body weight 94.53 kg Deena Ivey CHIEF PROGRAM OFFICER.UNDER CUTTING MACHINE OPERATOR Work Phone: [facility] 11-21-2022 16:06-0400 Diastolic blood pressure 78 mm[Hg] Deena Ivey CHIEF PROGRAM OFFICER.UNDER CUTTING MACHINE OPERATOR Work Phone: [facility] 11-21-2022 16:06-0400 Heart rate 89 /min Deena Ivey CHIEF PROGRAM OFFICER.UNDER CUTTING MACHINE OPERATOR Work Phone: [facility] 11-21-2022 16:06-0400 Respiratory rate 18 /min Deena Ivey CHIEF PROGRAM OFFICER.UNDER CUTTING MACHINE OPERATOR Work Phone: [facility] 11-21-2022 16:06-0400 SaO2% (BldA) [Mass fraction] 98 % Deena Ivey CHIEF PROGRAM OFFICER.UNDER CUTTING MACHINE OPERATOR Work Phone: [facility] 11-21-2022 16:06-0400 Systolic blood pressure 110 mm[Hg] Deena Ivey CHIEF PROGRAM OFFICER.UNDER CUTTING MACHINE OPERATOR Work Phone: [facility] 10-08-2022 11:01-0500 Diastolic blood pressure 75 mm[Hg] Willam Estrada MD Work Phone: [facility] 10-08-2022 11:01-0500 Systolic blood pressure 119 mm[Hg] Willam Estrada MD Work Phone: [facility] 10-08-2022 10:55-0500 Body weight 93.44 kg Willam Estrada MD Work Phone: [facility] 10-08-2022 10:55-0500 Heart rate 78 /min Willam Estrada MD Work Phone: [facility] 10-08-2022 10:55-0500 Respiratory rate 18 /min Willam Estrada MD Work Phone: [facility] 10-08-2022 10:55-0500 SaO2% (BldA) [Mass fraction] 96 % Willam Estrada MD Work Phone: [facility] 08-24-2022 19:25-0500 SaO2% (BldA) [Mass fraction] 99 % [facility] 08-24-2022 18:07-0500 Body height 167.[address] [facility] 08-24-2022 18:07-0500 Body mass index (BMI) [Ratio] 31.3 kg/m2 [facility] 08-24-2022 18:07-0500 Body temperature 98.9 [degF] [facility] 08-24-2022 18:07-0500 Body weight 87.[address] [facility] 08-24-2022 18:07-0500 Diastolic blood pressure 99 mm[Hg] [facility] 08-24-2022 18:07-0500 Heart rate 87 /min [facility] 08-24-2022 18:07-0500 Respiratory rate 20 /min [facility] 08-24-2022 18:07-0500 Systolic blood pressure 184 mm[Hg] [facility] 08-07-2022 14:56-0500 Body weight 92.53 kg Willam Estrada MD Work Phone: [facility] 08-07-2022 14:56-0500 Diastolic blood pressure 82 mm[Hg] Willam Estrada MD Work Phone: [facility] 08-07-2022 14:56-0500 Heart rate 77 /min Willam Estrada MD Work Phone: [facility] 08-07-2022 14:56-0500 SaO2% (BldA) [Mass fraction] 95 % Willam Estrada MD Work Phone: [facility] 08-07-2022 14:56-0500 Systolic blood pressure 118 mm[Hg] Willam Estrada MD Work Phone: [facility] 07-05-2022 13:28-0400 Diastolic blood pressure 78 mm[Hg] Diana Older CHIEF PROGRAM OFFICER.UNDER CUTTING MACHINE OPERATOR Work Phone: [facility] 07-05-2022 13:28-0400 Heart rate 68 /min Diana Older CHIEF PROGRAM OFFICER.UNDER CUTTING MACHINE OPERATOR Work Phone: [facility] 07-05-2022 13:28-0400 Respiratory rate 16 /min Diana Older CHIEF PROGRAM OFFICER.UNDER CUTTING MACHINE OPERATOR Work Phone: [facility] 07-05-2022 13:28-0400 Systolic blood pressure 122 mm[Hg] Diana Older CHIEF PROGRAM OFFICER.UNDER CUTTING MACHINE OPERATOR Work Phone: [facility] 07-02-2022 17:35-0400 Diastolic blood pressure 88 mm[Hg] [facility] 07-02-2022 17:35-0400 Heart rate 71 /min [facility] 07-02-2022 17:35-0400 Respiratory rate 16 /min [facility] 07-02-2022 17:35-0400 SaO2% (BldA) [Mass fraction] 98 % [facility] 07-02-2022 17:35-0400 Systolic blood pressure 137 mm[Hg] [facility] 07-02-2022 13:57-0400 Body mass index (BMI) [Ratio] 31.6 kg/m2 [facility] 07-02-2022 13:57-0400 Body temperature 97.6 [degF] [facility] 07-02-2022 13:57-0400 Body weight 88.[address] [facility] 07-02-2022 11:44-0400 Body weight 93.44 kg Diana Older CHIEF PROGRAM OFFICER.UNDER CUTTING MACHINE OPERATOR Work Phone: [facility] 07-02-2022 11:44-0400 Diastolic blood pressure 90 mm[Hg] Diana Older CHIEF PROGRAM OFFICER.UNDER CUTTING MACHINE OPERATOR Work Phone: [facility] 07-02-2022 11:44-0400 Heart rate 88 /min Diana Older CHIEF PROGRAM OFFICER.UNDER CUTTING MACHINE OPERATOR Work Phone: [facility] 07-02-2022 11:44-0400 Respiratory rate 16 /min Diana Older CHIEF PROGRAM OFFICER.UNDER CUTTING MACHINE OPERATOR Work Phone: [facility] 07-02-2022 11:44-0400 SaO2% (BldA) [Mass fraction] 98 % Diana Older CHIEF PROGRAM OFFICER.UNDER CUTTING MACHINE OPERATOR Work Phone: [facility] 07-02-2022 11:44-0400 Systolic blood pressure 138 mm[Hg] Diana Older CHIEF PROGRAM OFFICER.UNDER CUTTING MACHINE OPERATOR Work Phone: [facility] 06-27-2022 16:46-0400 Body temperature 98.29 [degF] Diana Older CHIEF PROGRAM OFFICER.UNDER CUTTING MACHINE OPERATOR Work Phone: [facility] 06-27-2022 16:46-0400 Body weight 92.08 kg Diana Older CHIEF PROGRAM OFFICER.UNDER CUTTING MACHINE OPERATOR Work Phone: [facility] 06-27-2022 16:46-0400 Diastolic blood pressure 98 mm[Hg] Diana Older CHIEF PROGRAM OFFICER.UNDER CUTTING MACHINE OPERATOR Work Phone: [facility] 06-27-2022 16:46-0400 Heart rate 73 /min Diana Older CHIEF PROGRAM OFFICER.UNDER CUTTING MACHINE OPERATOR Work Phone: [facility] 06-27-2022 16:46-0400 Respiratory rate 16 /min Diana Older CHIEF PROGRAM OFFICER.UNDER CUTTING MACHINE OPERATOR Work Phone: [facility] 06-27-2022 16:46-0400 SaO2% (BldA) [Mass fraction] 98 % Diana Older CHIEF PROGRAM OFFICER.UNDER CUTTING MACHINE OPERATOR Work Phone: [facility] 06-27-2022 16:46-0400 Systolic blood pressure 142 mm[Hg] Diana Older CHIEF PROGRAM OFFICER.UNDER CUTTING MACHINE OPERATOR Work Phone: [facility] 06-22-2022 15:42-0400 Body temperature 97.9 [degF] Rufus BROWN-Margaret Work Phone: [facility] 06-22-2022 15:42-0400 Body weight 93.08 kg Rufus Cruz PA-C Work Phone: [facility] 06-22-2022 15:42-0400 Diastolic blood pressure 98 mm[Hg] Rufus Cruz PA-C Work Phone: [facility] 06-22-2022 15:42-0400 Heart rate 81 /min Rufus Cruz PA-C Work Phone: [facility] 06-22-2022 15:42-0400 Respiratory rate 20 /min Rufus Cruz PA-C Work Phone: [facility] 06-22-2022 15:42-0400 SaO2% (BldA) [Mass fraction] 96 % Rufus Cruz PA-C Work Phone: [facility] 06-22-2022 15:42-0400 Systolic blood pressure 142 mm[Hg] Rufus Cruz PA-C Work Phone: [facility] 04-06-2022 14:33-0400 Body weight 90.72 kg Willam Estrada MD Work Phone: [facility] 04-06-2022 14:33-0400 Diastolic blood pressure 72 mm[Hg] Willam Estrada MD Work Phone: [facility] 04-06-2022 14:33-0400 Heart rate 73 /min Willam Estrada MD Work Phone: [facility] 04-06-2022 14:33-0400 SaO2% (BldA) [Mass fraction] 97 % Willam Estrada MD Work Phone: [facility] 04-06-2022 14:33-0400 Systolic blood pressure 112 mm[Hg] Willam Estrada MD Work Phone: [facility] 02-22-2022 13:35-0400 Diastolic blood pressure 73 mm[Hg] Patti Manrique MD Work Phone: [facility] 02-22-2022 13:35-0400 Heart rate 81 /min Patti Manrique MD Work Phone: [facility] 02-22-2022 13:35-0400 Respiratory rate 23 /min Patti Manrique MD Work Phone: [facility] 02-22-2022 13:35-0400 SaO2% (BldA) [Mass fraction] 94 % Patti Manrique MD Work Phone: [facility] 02-22-2022 13:35-0400 Systolic blood pressure 120 mm[Hg] Patti Manrique MD Work Phone: [facility] 02-22-2022 13:21-0400 Body temperature 97.11 [degF] Patti Manrique MD Work Phone: [facility] 02-16-2022 14:23-0400 Body height 167.[address] Willam Estrada Work Phone: [facility] Work Phone: 02-16-2022 14:23-0400 Body mass index (BMI) [Ratio] 32.3 kg/m2 Dr. Willam Estrada Work Phone: [facility] Work Phone: 02-16-2022 14:23-0400 Body weight 90.[address] Willam Estrada Work Phone: [facility] Work Phone: 02-16-2022 14:23-0400 Diastolic blood pressure 92 mm[Hg] Dr. Willam Estrada Work Phone: [facility] Work Phone: 02-16-2022 14:23-0400 Heart rate 76 /min Dr. Willam Estrada Work Phone: [facility] Work Phone: 02-16-2022 14:23-0400 Respiratory rate 18 /min Dr. Willam Estrada Work Phone: [facility] Work Phone: 02-16-2022 14:23-0400 SaO2% (BldA) [Mass fraction] 96 % Dr. Willam Estrada Work Phone: [facility] Work Phone: 02-16-2022 14:23-0400 Systolic blood pressure 135 mm[Hg] Dr. Willam Estrada Work Phone: [facility] Work Phone: 02-09-2022 14:24-0400 Body height 167.6 cm Patti Manrique MD Work Phone: [facility] 02-09-2022 14:24-0400 Body temperature 96.1 [degF] Patti Manrique MD Work Phone: [facility] 02-09-2022 14:240400 Body weight 90.72 kg Patti Manrique MD Work Phone: [facility] 02-09-2022 14:24-0400 Diastolic blood pressure 66 mm[Hg] Patti Manrique MD Work Phone: [facility] 02-09-2022 14:24-0400 Heart rate 86 /min Patti Manrique MD Work Phone: [facility] 02-09-2022 14:24-0400 SaO2% (BldA) [Mass fraction] 96 % Patti Manrique MD Work Phone: [facility] 02-09-2022 14:24-0400 Systolic blood pressure 108 mm[Hg] Patti Manrique MD Work Phone: [facility] 02-06-2022 14:26-0400 Body temperature 98.49 [degF] Felipe Jolly APRN.UNDER CUTTING MACHINE OPERATOR Work Phone: [facility] 02-06-2022 14:26-0400 Body weight 91.17 kg Felipe Jolly CHIEF PROGRAM OFFICER.UNDER CUTTING MACHINE OPERATOR Work Phone: [facility] 02-06-2022 14:26-0400 Diastolic blood pressure 70 mm[Hg] Felipe Jolly CHIEF PROGRAM OFFICER.UNDER CUTTING MACHINE OPERATOR Work Phone: [facility] 02-06-2022 14:26-0400 Heart rate 78 /min Felipe Jolly CHIEF PROGRAM OFFICER.UNDER CUTTING MACHINE OPERATOR Work Phone: [facility] 02-06-2022 14:26-0400 Respiratory rate 16 /min Felipe Jolly CHIEF PROGRAM OFFICER.UNDER CUTTING MACHINE OPERATOR Work Phone: [facility] 02-06-2022 14:26-0400 SaO2% (BldA) [Mass fraction] 97 % Felipe Jolly CHIEF PROGRAM OFFICER.UNDER CUTTING MACHINE OPERATOR Work Phone: [facility] 02-06-2022 14:26-0400 Systolic blood pressure 124 mm[Hg] Felipe Allend[facility] CHIEF PROGRAM OFFICER.UNDER CUTTING MACHINE OPERATOR Work Phone: [facility] 01-15-2022 15:33-0400 Diastolic blood pressure 82 mm[Hg] Dr. Willam Estrada Work Phone: [facility] Work Phone: 01-15-2022 15:33-0400 Systolic blood pressure 134 mm[Hg] Dr. Willam Estrada Work Phone: [facility] Work Phone: 01-15-2022 09:00-0400 Body height 167.[address] Willam Estrada Work Phone: [facility] Work Phone: 01-15-2022 09:00-0400 Body mass index (BMI) [Ratio] 33.5 kg/m2 Dr. Willam Estrada Work Phone: [facility] Work Phone: 01-15-2022 09:00-0400 Body weight 94.[address] Willam Estrada Work Phone: [facility] Work Phone: 01-15-2022 09:00-0400 Heart rate 92 /min Dr. Willam Estrada Work Phone: [facility] Work Phone: 01-15-2022 09:00-0400 SaO2% (BldA) [Mass fraction] 92 % Dr. Willam Estrada Work Phone: [facility] Work Phone: 01-09-2022 14:28-0400 Diastolic blood pressure 78 mm[Hg] Willam Estrada MD Work Phone: [facility] 01-09-2022 14:28-0400 Systolic blood pressure 122 mm[Hg] Willam Estrada MD Work Phone: [facility] 01-09-2022 13:50-0400 Body weight 93.89 kg Willam Estrada MD Work Phone: [facility] 01-09-2022 13:50-0400 Heart rate 88 /min Willam Estrada MD Work Phone: [facility] 01-04-2022 16:04-0400 Body height 167.[address] Willam Estrada Work Phone: [facility] Work Phone: 01-04-2022 16:04-0400 Body mass index (BMI) [Ratio] 33.7 kg/m2 Dr. Willam Estrada Work Phone: [facility] Work Phone: 01-04-2022 16:04-0400 Body weight 94.[address] Willam Estrada Work Phone: [facility] Work Phone: 01-04-2022 16:04-0400 Diastolic blood pressure 62 mm[Hg] Dr. Willam Estrada Work Phone: [facility] Work Phone: 01-04-2022 16:04-0400 Heart rate 80 /min Dr. Willam Estrada Work Phone: [facility] Work Phone: 01-04-2022 16:04-0400 Respiratory rate 18 /min Dr. Willam Estrada Work Phone: [facility] Work Phone: 01-04-2022 16:04-0400 Systolic blood pressure 124 mm[Hg] Dr. Willam Estrada Work Phone: [facility] Work Phone: 12-14-2021 17:08-0400 Body height 167.[address] Willam Estrada Work Phone: [facility] Work Phone: 12-14-2021 17:08-0400 Body mass index (BMI) [Ratio] 33.5 kg/m2 Dr. Willam Estrada Work Phone: [facility] Work Phone: 12-14-2021 17:08-0400 Body weight 94.[address] Willam Estrada Work Phone: [facility] Work Phone: 12-14-2021 17:07-0400 Body temperature 98.7 [degF] Dr. Willam Estrada Work Phone: [facility] Work Phone: 12-14-2021 17:07-0400 Diastolic blood pressure 85 mm[Hg] Dr. Willam Estrdaa Work Phone: [facility] Work Phone: 12-14-2021 17:07-0400 Heart rate 84 /min Dr. Willam Estrada Work Phone: [facility] Work Phone: 12-14-2021 17:07-0400 SaO2% (BldA) [Mass fraction] 97 % Dr. Willam Estrada Work Phone: [facility] Work Phone: 12-14-2021 17:07-0400 Systolic blood pressure 123 mm[Hg] Dr. Willam Estrada Work Phone: [facility] Work Phone: 12-04-2021 16:50-0400 Body weight 94.35 kg Willam Estrada MD Work Phone: [facility] 12-04-2021 16:50-0400 Diastolic blood pressure 86 mm[Hg] Willam Estrada MD Work Phone: [facility] 12-04-2021 16:50-0400 Heart rate 82 /min Willam Estrada MD Work Phone: [facility] 12-04-2021 16:50-0400 Systolic blood pressure 126 mm[Hg] Willam Estrada MD Work Phone: [facility] Encounters Encounter Date Encounter Type Care Provider Facility Start: 04-21-2025 ambulatory Rhoda Torres Facilit y:[facility] Start: 04-08-2025 End: 04-08-[address] Rhoda Torres MD -[facility] Work Phone: Start: 04-08-2025 End: 04-08-[address] Willam Estrada MD Work Phone: [facility] Start: 03-24-2025 End: 03-24-2025 ambulatory WILLAM ESTRADA Facility:[facility] Start: 03-15-2025 End: 03-15-2025 Telephone encounter Willam Estrada MD Work Phone: [facility] [place] Comment on above: Patient Update Start: 03-13-2025 End: 03-13-2025 Emergency department patient visit Dr. Willam Estrada MD Work Phone: -Emergency Department Work Phone: Start: 03-13-2025 End: 03-13-2025 Patient encounter procedure Rufus Ohara PA-C Work Phone: [facility] Comment on above: Dizziness (Primary D x); SOB (shortness of breath); Acute respiratory distress Start: 03-13-2025 End: 03-13-2025 ambulatory RUFUS OHARA Facility:[facility] Start: 03-07-2025 End: 03-08-2025 Refill Leilani Ramirez APRN.CNS Work Phone: [facility] [place] Comment on above: Refill Request Start: 03-02-2025 End: 03-02-2025 Subsequent hospital visit by physician Ronaldo [facility] [facility] Work Phone: Radiology Comment on above: Acute right ankle pa in [M25.571] Start: 03-02-2025 End: 03-02-2025 Patient encounter procedure Jonnathanlabania Mckeon Work Phone: Vascular Surgery Comment on above: Toe pain, right (Mitra tex Dx); Family history of abdominal aortic aneurysm (AAA); Ectasia of artery; Acute right ankle pain Start: 03-02-2025 End: 03-02-2025 ambulatory WILLAM ESTRADA Facility:[facility] Start: 02-27-2025 End: 02-27-2025 Follow-up encounter Amanda Crow APRN.CNP Work Phone: [facility] Comment on above: Results Start: 02-25-2025 End: 02-25-2025 Patient encounter procedure Martha Diop APRN.CNP Work Phone: [facility] Comment on above: Urinary frequency (P rimary Dx); Asthma, unspecified asthma severity, unspecified whether complicated, unspecified whether persistent (HCC); History of urinary tract infection Start: 02-25-2025 End: 02-25-2025 ambulatory MARTHA DIOP Facility:[facility] Start: 02-04-2025 End: 02-04-[address] Blake Avilez MD -[facility] Work Phone: Start: 02-04-2025 End: 02-04-[address] Willam Estrada MD Work Phone: [facility] Work Phone: Start: 01-13-2025 End: 03-15-2025 Follow-up encounter Deena Ivey APRN.UNDER CUTTING MACHINE OPERATOR Work Phone: [facility] Start: 01-12-2025 End: 01-12-2025 Office outpatient visit 25 minutes Rufus Ohara PA-C Work Phone: [facility] Comment on above: Urinary frequency (P rimary Dx) Start: 01-12-2025 End: 01-12-2025 ambulatory RUFUS OHARA Facility:[facility] Start: 12-25-2024 End: 12-25-2024 ambulatory WILLAM ESTRADA Facility:[facility] Start: 12-24-2024 End: 12-24-2024 [facility] Start: 12-24-2024 End: 12-24-2024 ambulatory Yusra Cabello Facility[place] Start: 12-18-2024 End: 12-18-[address] Willam Estrada MD Work Phone: [facility] Work Phone: Start: 12-18-2024 End: 12-18-2024 Patient encounter procedure Yusra Cabello [place] [facility] Work Phone: Start: 12-18-2024 End: 12-18-2024 ambulatory Yusra Cabello Facility:[facility] Start: 12-11-2024 End: 12-11-2024 ambulatory Naila Lanier RN Work Phone: [facility] [facility] Comment on above: Initial enrollment o venkatesh for Chronic Disease Management Start: 12-09-2024 End: 12-09-2024 ambulatory Madonna Elizabeth Mun[facility] Start: 12-09-2024 End: 12-09-2024 Patient encounter procedure Madonna Elizabeth Munaf[facility] Comment on above: Population Health Na vigation Outreach (ACO High Risk - attempt 2) Start: 12-04-2024 End: 12-04-2024 ambulatory Madonna K Munafo [facility] Start: 12-04-2024 End: 12-04-2024 Patient encounter procedure Madonna K Munaf[facility] Comment on above: Population Health Na vigation Outreach (ACO High Risk - attempt 1 ) Start: 11-29-2024 End: 11-30-2024 Refill Willam Estrada MD Work Phone: [facility] [place] Comment on above: Refill Request Start: 11-26-2024 End: 11-26-2024 Telephone encounter Willam Estrada MD Work Phone: [facility] [place] Comment on above: Forms Start: 11-25-2024 End: 11-25-2024 ambulatory WILLAM ESTRADA Facility:[facility] Start: 11-25-2024 End: 11-25-2024 Patient encounter [...] wrist Start: 11-24-2024 End: 11-24-2024 ambulatory WILLAM ESTRADA Facility:[facility] Start: 11-23-2024 End: 11-23-2024 ambulatory WILLAM ESTRADA Facility:[facility] Start: 11-23-2024 End: 11-23-2024 Subsequent hospital visit by physician [facility] ([facility]-Stat) Work Phone: Cat Scan Comment on above: Tobacco use current [Z72.0] Start: 11-19-2024 End: 11-19-2024 Telephone encounter Willam Estrada MD Work Phone: [facility] [place] Comment on above: Insurance Authorizat ion Start: 11-18-2024 End: 11-18-2024 Office outpatient visit 25 minutes Willam Estrada MD Work Phone: [facility] [place] Comment on above: Type 2 diabetes sara itus with diabetic neuropathy, without long-term current use of insulin (HCC) (Primary Dx); Essential hypertension; Moderate persistent asthma without complication; Anxiety and depression; Neuropathy; Bilateral leg edema; Chronic obstructive pulmonary disease with (acute) exacerbation (HCC) Start: 11-18-2024 End: 11-18-2024 ambulatory WILLAM ESTRADA Facility:[facility] Start: 11-16-2024 End: 11-16-2024 Patient encounter procedure Yusra BROWN -[facility] Work Phone: Start: 11-16-2024 End: 11-16-2024 ambulatory Yusra Cabello Facility:[facility] Start: 11-11-2024 ambulatory Aly Jeffrey Facility:[facility] Start: 11-11-2024 Non-patient / Non-visit Dr. Aly lopez MD -[facility]- Start: 11-11-2024 End: 11-11-[address] Willam Estrada MD Work Phone: [facility] Work Phone: Start: 11-11-2024 End: 11-11-2024 Patient encounter procedure INDIGO BROWN -Pulmonary Services/Neurology Work Phone: Start: 11-11-2024 End: 11-11-2024 ambulatory INDIGO NICHOLS Facility:[facility] Start: 11-02-2024 End: 11-02-[address] Blake Avilez MD -Physical Therapy Work Phone: Start: 11-02-2024 End: 11-02-2024 ambulatory Blake Avilez Facility:[facility] Start: 10-30-2024 End: 10-30-[address] León Cruz MD -[facility] Work Phone: Start: 10-30-2024 End: 10-30-2024 ambulatory Willam Estrada Facility:[facility] Start: 10-16-2024 End: 10-16-2024 Patient encounter procedure Ya BROWN -[facility] Work Phone: Start: 10-16-2024 End: 10-16-2024 ambulatory Willam Estrada Facility:[facility] Start: 10-07-2024 End: 10-07-2024 ambulatory WILLAM ESTRADA Facility:[facility] Start: 10-07-2024 End: 10-07-2024 Subsequent hospital visit by physician Screen Mamm[facility] Comment on above: Encounter for screen ing mammogram for breast cancer [Z12.31] Start: 09-14-2024 End: 09-14-2024 Refill Deanna Pagan APRN.UNDER CUTTING MACHINE OPERATOR Work Phone: [facility] [place] Comment on above: Refill Request Start: 09-11-2024 End: 09-11-[address] Shaq Rush MD -[facility] Start: 09-11-2024 End: 09-14-2024 Refill Willam Estrada MD Work Phone: [facility] [place] Comment on above: Refill Request Start: 09-08-2024 End: 09-08-[address] Blake Avilez MD -[facility] Work Phone: Start: 09-08-2024 End: 09-08-2024 ambulatory Blake Avilez Facility:[facility] Start: 09-03-2024 End: 09-03-2024 Patient encounter procedure Yusra Cabello [facility] Work Phone: Start: 09-03-2024 End: 09-03-2024 ambulatory Yusra Fulk Facility:[facility] Start: 08-25-2024 End: 08-25-2024 Social Work Kati CASTANONW [facility] Comment on above: Needs assistance wit h community resources (Primary Dx) Start: 08-17-2024 End: 08-17-2024 Social Work Kati LUTZ Primary [facility] Social Work Comment on above: Needs assistance wit h community resources (Primary Dx) Start: 08-14-2024 End: 08-14-2024 Patient Outreach Alyssa Hathaway RN Work Phone: [facility] [facility] Comment on above: Started Weekly phone contact (Recurring) for Transitional Care Management Start: 08-12-2024 End: 08-12-2024 Patient encounter procedure Deanna Pagan APRN.UNDER CUTTING MACHINE OPERATOR Work Phone: [facility] [place] Comment on above: Essential hypertensi on (Primary [...] Cigarette smoker Start: 08-11-2024 End: 08-11-2024 ambulatory WILLAM ESTRADA Facility:[facility] Start: 08-10-2024 End: 08-10-2024 Telephone encounter Mona Corrigan MD Work Phone: Pulmonary Medicine Comment on above: Needs assistance wit h community resources (Primary Dx) Start: 08-10-2024 ambulatory Rosendo Gupta Facility:[facility] Start: 08-10-2024 Non-patient / Non-visit Dr. Rosendo trejo MD -[facility] Start: 08-10-2024 End: 08-10-2024 Patient encounter procedure Kemi Velez PA -Cardiovascular Services Work Phone: Start: 08-10-2024 End: 08-10-2024 ambulatory Kemi Velez Facility:[facility] Start: 08-09-2024 End: 08-09-2024 Emergency department patient visit Dr. Julián Schrader DO -Emergency Department Work Phone: Start: 08-07-2024 End: 08-07-2024 Patient Outreach Alyssa Hathaway RN Work Phone: [employer] [employer] [facility] Comment on above: [facility] Initial phone contact for Transitional Care Management Start: 08-05-2024 End: 08-06-2024 Emergency department patient visit Dr. Lissette Guerin DO -Emergency Department Work Phone: Start: 08-05-2024 End: 08-05-2024 ambulatory Yenifer Alberto RN NURSE AUTOMOTIVE CUSTOMER EXPERIENCE ADVISOR Comment on above: Infection Start: 08-05-2024 Non-patient / Non-visit Dr. Kaylynn Dunaway MD -[facility] Work Phone: Start: 08-04-2024 Non-patient / Non-visit Dr. Kaylynn Dunaway MD -[facility] Work Phone: Start: 08-04-2024 End: 08-04-2024 Telephone encounter Willam Estrada MD Work Phone: [facility] [place] Comment on above: Orders (For bath/sudha wer chair) Start: 08-03-2024 End: 08-03-2024 Telephone encounter Mirtha BROWN Work Phone: [facility] Comment on above: Results Start: 08-03-2024 Non-patient / Non-visit Dr. Kaylynn Dunaway MD -[facility] Work Phone: Start: 08-02-2024 Non-patient / Non-visit Dr. Thalia melgar MD -[facility] Work Phone: Start: 08-02-2024 ambulatory Thalia Hernandez Facility:[facility] Start: 08-02-2024 End: 08-05-2024 Evaluation and management of inpatient Dr. Neal Dunaway MD -Progressive Care Unit Work Phone: Start: 08-01-2024 End: 08-01-2024 ambulatory WILLAM ESTRADA Facility:[facility] Start: 08-01-2024 End: 08-01-2024 Office outpatient visit 25 minutes Felipe Jolly APRN.CNP Work Phone: [facility] Comment on above: Pain with urination (Primary Dx) Start: 07-31-2024 End: 07-31-2024 Social Work Kati LUTZ Primary [facility] Social Work Comment on above: Needs assistance wit h community resources (Primary Dx) Start: 07-29-2024 End: 07-29-2024 Office outpatient visit 25 minutes Willam Estrada MD Work Phone: [facility] [place] Comment on above: Type 2 diabetes sara [...] Start: 07-29-2024 End: 07-29-2024 ambulatory WILLAM ESTRADA Facility:[facility] Start: 07-29-2024 End: 07-31-2024 Telephone encounter Willam Estrada MD Work Phone: [facility] [place] Comment on above: Orders Start: 07-29-2024 End: 07-29-2024 Patient encounter procedure Indigo Nichols PA-C Work Phone: Neurology Comment on above: Neuropathy (Primary Dx); Other fatigue Start: 07-29-2024 End: 07-29-2024 ambulatory WILLAM ESTRADA Facility:[facility] Start: 07-23-2024 End: 07-23-2024 [facility] Social Work Comment on above: Needs assistance wit h community resources (Primary Dx) Start: 07-22-2024 End: 07-23-2024 [facility] Comment on above: Needs assistance wit community resources (Primary Dx) Chronic disease patricia lara (CDM outreach) Start: 07-10-2024 End: 07-10-2024 Refill Willam Esrtada MD Work Phone: [facility] [place] Comment on above: Refill Request Start: 07-07-2024 End: 07-09-2024 Telephone encounter Willam Estrada MD Work Phone: [facility] [place] Comment on above: Neuropathy Start: 07-03-2024 End: 07-03-2024 ambulatory Oxana Pack RN [employer] Comment on above: CDM (Telephonic outr each/) Start: 07-02-2024 ambulatory Rosendo Gupta Facility:[facility] Start: 07-02-2024 End: 07-02-2024 ambulatory Rito Loly Laura BARRAGAN Facility:[facility] Start: 06-29-2024 End: 06-29-2024 Telephone encounter Mona Corrigan MD Work Phone: Pulmonary Medicine Start: 06-23-2024 End: 06-23-2024 ambulatory WILLAM ESTRADA Facility:[facility] Start: 06-23-2024 End: 06-23-2024 Subsequent hospital visit by physician Ct [facility] (I-Stat) Work Phone: Cat Scan Comment on above: Lung nodules [R91.8] Start: 06-22-2024 End: 06-22-2024 ambulatory WILLAM ESTRADA Facility:[facility] Start: 06-10-2024 End: 06-12-2024 Refill Willam Estrada MD Work Phone: [facility] [place] Comment on above: Refill Request Start: 06-04-2024 End: 06-04-2024 ambulatory Oxana Pack RN [employer] Comment on above: CDM (Telephonic outr each/) Start: 05-20-2024 End: 05-20-2024 Telephone encounter Willam Estrada MD Work Phone: [facility] [place] Comment on above: Medication Request Start: 05-19-2024 End: 05-19-2024 Office outpatient visit 15 minutes Willam Estrada MD Work Phone: [facility] [place] Comment on above: Sinobronchitis (Prim hortencia Dx); Stage 2 moderate COPD by GOLD classification (HCC); Acute upper respiratory infection; Acute viral syndrome Start: 05-19-2024 End: 05-19-2024 ambulatory WILLAM ESTRADA Facility:[facility] Start: 05-08-2024 End: 05-09-2024 Emergency department patient visit Willam Estrada Facility:[facility] Start: 05-08-2024 End: 05-08-2024 ambulatory Keyana Dariel RN NURSE AUTOMOTIVE CUSTOMER EXPERIENCE ADVISOR Comment on above: Dysuria Start: 05-07-2024 End: 05-07-2024 ambulatory WILLAM ESTRADA Facility:[facility] Start: 05-07-2024 End: 05-07-2024 Patient encounter procedure Mona Corrigan MD Work Phone: Pulmonary Medicine Comment on above: Lung nodules (Primar y Dx); Moderate persistent asthma without complication; Cigarette smoker; Class 2 obesity Start: 04-28-2024 End: 04-28-2024 ambulatory Rola Browne RN Work Phone: [employer] Comment on above: Community Monitoring Outreach (CDM Telephonic Outreach/) Start: 04-20-2024 End: 04-20-2024 ambulatory WILLAM ESTRADA Facility:[facility] Start: 04-20-2024 End: 04-20-2024 Office outpatient visit 25 minutes Willam Estrada MD Work Phone: [facility] [place] Comment on above: Acute bronchitis wit h [...] Start: 04-19-2024 ambulatory Renu Peña RN NURSE AUTOMOTIVE CUSTOMER EXPERIENCE ADVISOR Comment on above: Difficulty Breathing Start: 04-09-2024 ambulatory Alyssa Hathaway RN Work Phone: [employer] Start: 04-09-2024 Telephone follow-up Alyssa Hathaway RN Work Phone: [employer] Comment on above: Transition Of Care ( TCM OON followup ) Weekly phone contact (Recurring) for Transitional Care Management Start: 04-06-2024 ambulatory Willam silva MD Work Phone: Internal Medicine [place] Comment on above: My ursodiaol 300 mg Refill Request Start: 03-31-2024 Telephone encounter Willam todd MD Work Phone: [facility] [place] Comment on above: Patient Question Start: 03-30-2024 End: 03-30-2024 Office outpatient visit 25 minutes Willam Estrada MD Work Phone: [facility] [place] Comment on above: Acute cystitis witho ut hematuria (Primary Dx); History of sepsis; Gas bloat syndrome; Urinary urgency; Type 2 diabetes mellitus with hyperglycemia, without long-term current use of insulin (HCC); Other chronic back pain Start: 03-30-2024 End: 03-30-2024 ambulatory WILLAM ESTRADA Facility:[facility] Start: 03-26-2024 Patient Outreach Alyssa Hathaway RN Work Phone: [employer] Comment on above: Transition Of Care ( TCM / OON [place] 03/24/24) Initial phone contact for Transitional Care Management Refill Request Start: 03-23-2024 Telephone encounter Deena rodriguez CHIEF PROGRAM OFFICER.UNDER CUTTING MACHINE OPERATOR Work Phone: [place] [facility] Comment on above: Results Start: 03-20-2024 End: 03-20-2024 Patient encounter procedure Deena Ivey CHIEF PROGRAM OFFICER.UNDER CUTTING MACHINE OPERATOR Work Phone: [place] [facility] Comment on above: Cystitis (Primary Dx ) Start: 03-20-2024 Telephone encounter Willam todd MD Work Phone: Internal Medicine [place] Comment on above: Patient Update Start: 03-04-2024 End: 03-04-2024 Subsequent hospital visit by physician Ronaldo [facility] [place] Work Phone: Radiology Comment on above: Elbow swelling, righ t [M25.421] Start: 03-04-2024 End: 03-04-2024 Office outpatient visit 25 minutes Felipe Jolly CHIEF PROGRAM OFFICER.UNDER CUTTING MACHINE OPERATOR Work Phone: [facility] [facility] Comment on above: Acute cough (Primary Dx); Elbow swelling, right; Suspected COVID-19 virus infection Start: 02-25-2024 Telephone encounter Allegra babroza CHIEF PROGRAM OFFICER.UNDER CUTTING MACHINE OPERATOR Work Phone: [facility] [place] Comment on above: Results Start: 02-18-2024 End: 02-18-2024 Subsequent hospital visit by physician Xr [facility] [place] Work Phone: Radiology Comment on above: Injury of toe on lef t foot, initial encounter [Y19.922A] Start: 02-18-2024 End: 02-18-2024 Patient encounter procedure Allegra Berumen MARCY Work Phone: [facility] [place] Comment on above: YARY (obstructive sle ep apnea) (Primary Dx); Injury of toe on left foot, initial encounter Start: 01-20-2024 Telephone encounter Willam todd MD Work Phone: [facility] [place] Comment on above: Patient Question Start: 12-12-2023 ambulatory Willam silva MD Work Phone: [facility] [place] Comment on above: Miserable with stoma ch Start: 12-12-2023 Telephone encounter Willam todd MD Work Phone: [facility] [place] Comment on above: Results Start: 12-06-2023 End: [...] Phone: Internal Medicine [place] Comment on above: Muscle biopsy Start: 11-28-2023 Non-patient / Non-visit Dr. Celestina Estrada Work Phone: [facility] Start: 11-28-2023 End: 11-28-2023 Admission to same day surgery center Dr. Willam Estrada Work Phone: [facility]-Endoscopy Work Phone: Start: 11-28-2023 End: 11-28-[address] Wlilam Estrada Work Phone: [facility] Work Phone: Start: 11-25-2023 Telephone encounter Justyna Luna sandro ANDERSUNDER CUTTING MACHINE OPERATOR Work Phone: Pulmonary Medicine Comment on above: Results Start: 11-22-2023 End: 11-22-2023 Subsequent hospital visit by physician Ct [facility] (I-Stat) Work Phone: Cat Scan Comment on above: Tobacco use current [Z72.0] Start: 11-20-2023 Telephone encounter Willam todd MD Work Phone: [facility] [place] Comment on above: Orders; office notes need addenum done Start: 11-19-2023 End: 11-19-2023 Office outpatient visit 25 minutes Willam Estrada MD Work Phone: [facility] [place] Comment on above: Type 2 diabetes sara [...] Start: 11-11-2023 End: 11-11-2023 ambulatory Pulm Lab [facility] Work Phone: PULM LAB [facility] Comment on above: Spirometry Start: 11-11-2023 End: 11-11-2023 Patient encounter procedure Pulm Lab [facility] Work Phone: [facility] Comment on above: Encounter for screen ing for lung cancer (Primary Dx); Tobacco use current Start: 11-08-2023 Refill Willam silva MD Work Phone: [facility] [place] Comment on above: Refill Request Start: 11-05-2023 End: 11-05-2023 Patient encounter procedure Mona Corrigan MD Work Phone: Pulmonary Medicine Comment on above: Asthma with COPD (HC C) (Primary Dx); Cigarette smoker; YARY (obstructive sleep apnea) Start: 10-22-2023 End: 10-22-[address] Willam Estrada Work Phone: [facility] Work Phone: Start: 10-22-2023 End: 10-22-[address] Willam Estrada Work Phone: [facility]-Ultrasound, [facility] Work Phone: Start: 09-20-2023 End: 09-20-2023 Emergency department patient visit Dr. Willam Estrada Work Phone: [facility]-Emergency Department Work Phone: Start: 08-30-2023 Telephone encounter Mona Corrigan MD Work Phone: [facility] [place] Comment on above: Orders; Care Coordin ator - Other Start: 08-26-2023 End: 08-26-[address] Willam Estrada Work Phone: [facility] Work Phone: Start: 08-09-2023 Refill Willam silva MD Work Phone: [facility] [place] Comment on above: Refill Request Start: 07-23-2023 End: 07-23-2023 Subsequent hospital visit by physician Xr [facility] Work Phone: Radiology Comment on above: Acute pain of right shoulder [M25.511] Start: 07-23-2023 End: 07-23-2023 Office outpatient visit 40 minutes Willam Estrada MD Work Phone: [facility] [place] Comment on above: Essential hypertensi on (Primary Dx); Throbbing headache; Acute pain of right shoulder; Type 2 diabetes mellitus with hyperglycemia, without long-term current use of insulin (HCC); Severe persistent asthma without complication; Pain in both lower extremities; Encounter for immunization Start: 07-18-2023 ambulatory Rola Browne RN Work Phone: [facility] Comment on above: Hypertension Start: 07-18-2023 Follow-up encounter Rola Bravo RN Work Phone: [employer] Comment on above: Community Monitoring Outreach (Escalation follow up/) Start: 07-17-2023 ambulatory Rola Browne RN Work Phone: [employer] Comment on above: Community Monitoring Outreach (CDM Escalation Outreach/) Start: 07-04-2023 ambulatory Rola Browne RN Work Phone: [employer] Comment on above: Community Monitoring Outreach (CDM Escalation Outreach/) Start: 07-01-2023 Non-patient / Non-visit Dr. Celestina Estrada Work Phone: [facility] Start: 07-01-2023 End: 07-01-2023 Admission to same day surgery center Dr. Willam Estrada Work Phone: [facility]-Endoscopy Work Phone: Start: 07-01-2023 End: 07-01-[address] Willam Estrada Work Phone: [facility] Work Phone: Start: 06-28-2023 Refill Leilani Ramirez APRN.CNS Work Phone: [facility] [place] Comment on above: Refill Request Start: 06-27-2023 End: 06-28-2023 Emergency department patient visit Dr. Willam Estrada Work Phone: [facility]-Emergency Department Work Phone: Start: 06-20-2023 End: 06-20-[address] Willam Estrada Work Phone: [facility] Work Phone: Start: 06-20-2023 End: 06-20-[address] [facility] Start: 06-19-2023 End: 06-19-[address] Willam Estrada Work Phone: [facility] Work Phone: Start: 06-19-2023 End: 06-19-[address] [facility]: Start: 06-10-2023 End: 06-10-[address] [facility] Work Phone: Start: 06-03-2023 Telephone encounter Willam todd MD Work Phone: [facility] [place] Comment on above: Results; Patient Upd ate Start: 05-31-2023 End: 05-31-2023 Patient encounter procedure Allegra Berumen CHIEF PROGRAM OFFICER.UNDER CUTTING MACHINE OPERATOR Work Phone: [facility] [place] Comment on above: Hives (Primary Dx); Dermatitis; Other fatigue Start: 05-30-2023 End: 05-30-2023 Emergency department patient visit Dr[facility] Work Phone: Start: 05-28-2023 End: 05-28-2023 Subsequent hospital visit by physician Xr [facility] Work Phone: Radiology Comment on above: Acute cough [R05.1] Start: 05-28-2023 End: 05-28-2023 Patient encounter procedure Deena Ivey CHIEF PROGRAM OFFICER.UNDER CUTTING MACHINE OPERATOR Work Phone: [facility] Comment on above: Acute cough (Primary Dx); Asthma with COPD with exacerbation (HCC) Start: 05-26-2023 End: 05-27-2023 Emergency department patient visit Dr. Willam [facility]strada [facility] Work Phone: Start: 05-22-2023 Telephone encounter Willam todd MD Work Phone: [facility] [place] Comment on above: Patient Update Start: 04-24-2023 End: 04-24-2023 ambulatory Pulm Lab [facility] Work Phone: PULM LAB [facility] Comment on above: Spirometry Start: 04-24-2023 End: 04-24-2023 Patient encounter procedure Pulm Lab [facility] Work Phone: [facility] Comment on above: Stage 2 moderate ACTION FINISHER D by GOLD classification (HCC) (Primary Dx); Tobacco abuse Start: 04-09-2023 End: 04-09-[address] Willam Estrada Work Phone: [facility] Work Phone: Start: 04-09-2023 End: 04-09-[address] Willam Estrada Work Phone: [facility], [facility] Work Phone: Start: 04-01-2023 End: 04-01-[address] Willam Estrada Work Phone: [facility] Work Phone: Start: 04-01-2023 End: 04-01-[address] Willam Estrada Work Phone: [facility]Labor[facility] Work Phone: Start: 03-28-2023 End: 03-28-[address] Willam Estrada Work Phone: [facility] Work Phone: Start: 03-25-2023 End: 03-25-[address] Willam Estrada Work Phone: [facility] Work Phone: Start: 03-25-2023 End: 03-25-[address] Willam Estrada Work Phone: [facility]-Radiology, [facility] Work Phone: Start: 03-21-2023 End: 03-21-[address] Willam Estrada Work Phone: [facility] Work Phone: Start: 03-14-2023 ambulatory Rola Browne RN Work Phone: [employer] Comment on above: Community Monitoring Outreach (CDM Engagement Outreach/) Start: 03-11-2023 Refill Willam silva MD Work Phone: [facility] [place] Comment on above: Refill Request Start: 02-12-2023 End: 02-12-[address] Willam Estrada Work Phone: [facility]-MRI - [facility] Start: 02-08-2023 Refill Willam silva MD Work Phone: [facility] [place] Comment on above: Refill Request Start: 01-30-2023 End: 01-30-[address] Willam Estrada Work Phone: [facility] Work Phone: Start: 01-30-2023 End: 01-30-[address] Willam Estrada Work Phone: [facility] Start: 01-15-2023 End: 01-15-[address] Willam Estrada Work Phone: [facility] Work Phone: Start: 01-15-2023 End: 01-15-[address] Willam Estrada Work Phone: [facility]-Cat Scan, [facility] Start: 01-07-2023 End: 01-07-[address] Willam Estrada Work Phone: [facility]-Laboratory, Specimen Start: 01-04-2023 End: 01-04-[address] Willam Estrada Work Phone: [facility] Work Phone: Start: 01-04-2023 End: 01-04-[address] Willam Estrada Work Phone: [facility] Start: 12-29-2022 End: 12-29-2022 Emergency department patient visit [facility]Emergency Department Start: 12-21-2022 End: 12-21-2022 Patient encounter procedure Leila Rubi PA-C Work Phone: Pulmonary Medicine Comment on above: Stage 2 moderate ACTION FINISHER D by GOLD classification ([facility]) (Primary Dx); Tobacco abuse; Seasonal allergies Start: 12-18-2022 End: 12-18-2022 Office outpatient visit 40 minutes Willam Estrada MD Work Phone: [facility] [place] Comment on above: COPD with exacerbati on ([facility]) (Primary Dx); Itching; Sinobronchitis; Recurrent major depressive disorder, in remission ([facility]) Start: 12-17-2022 Telephone encounter Willam todd MD Work Phone: [facility] [place] Comment on above: Patient Update Start: 12-12-2022 Telephone encounter Willam todd MD Work Phone: [facility] [place] Comment on above: Patient Update (Bloo d Sugars) Start: 12-11-2022 ambulatory Tex Herrera RN NURSE AUTOMOTIVE CUSTOMER EXPERIENCE ADVISOR Comment on above: High Blood Sugar Start: 12-10-2022 Refill Willam silva MD Work Phone: [facility] [place] Comment on above: Refill Request Start: 12-09-2022 Refill Willam silva MD Work Phone: [facility] [place] Comment on above: Refill Request Start: 12-05-2022 End: 12-05-2022 Office outpatient visit 40 minutes Willam Estrada MD Work Phone: [facility] [place] Comment on above: Sinobronchitis (Prim hortencia Dx); Type 2 diabetes mellitus with diabetic neuropathy, without long-term current use of insulin ([facility]); Essential hypertension; Encounter for long-term current use of medication; Mixed hyperlipidemia; Chronic obstructive pulmonary disease, unspecified COPD type (HCC); Neuropathy; Stage 2 moderate COPD by GOLD classification ([facility]); Moderate persistent asthma without complication; Depression, recurrent ([facility]) Start: 12-04-2022 ambulatory Sherie Kay RN Work Phone: [employer] Comment on above: Community monitoring outreach (CDM [facility] triggered escalation) Start: 11-26-2022 ambulatory Sherie Kay RN Work Phone: [employer] Start: 11-21-2022 End: 11-21-2022 Subsequent hospital visit by physician Xr [facility] Work Phone: Radiology Comment on above: Acute cough [R05.1] Start: 11-21-2022 End: 11-21-2022 Patient encounter procedure Deenaadrian Ivey CHIEF PROGRAM OFFICER.UNDER CUTTING MACHINE OPERATOR Work Phone: [facility] Comment on above: Acute cough (Primary Dx); COPD with exacerbation ([facility]) Start: 11-21-2022 Telephone encounter Willam todd MD Work Phone: [facility] [place] Comment on above: Patient Update Start: 10-15-2022 End: 10-15-2022 ambulatory [facility] Work Phone: Start: 10-15-2022 End: 10-15-2022 Patient encounter procedure [facility]-Cat Scan, [facility] Start: 10-10-2022 End: 10-10-2022 Subsequent hospital visit by physician Bone Density [facility] Work Phone: Radiology Comment on above: Asymptomatic postmen opausal status [Z78.0] Start: 10-08-2022 End: 10-08-2022 Office outpatient visit 40 minutes Willam Estrada MD Work Phone: [facility] [place] Comment on above: Essential hypertensi on (Primary [...] Subsequent hospital visit by physician Mri Radio [facility] (I-Stat/1.5t) Work Phone: Radiology Comment on above: Acute bilateral low back pain with bilateral sciatica [M54.42, M54.41] Start: 09-22-2022 ambulatory Rola Browne RN Work Phone: [employer] Comment on above: Community Monitoring Outreach (CDM Escalation Outreach) Start: 09-20-2022 Telephone encounter Willam todd MD Work Phone: [facility] [place] Comment on above: Urologoy Referral Start: 09-19-2022 Telephone encounter Willam todd MD Work Phone: [facility] [place] Comment on above: Urology referral Start: 09-17-2022 Documentation procedure Mammog steve Coordinator [facility] Start: 09-17-2022 Letter encounter Mammography Coordinator [facility] Department Start: 09-14-2022 End: 09-14-2022 Subsequent hospital visit by physician Screen Mammo [facility] Mammogram Comment on above: Encounter for screen ing mammogram for breast cancer [Z12.31] Start: 09-07-2022 Telephone encounter Mona Corrigan MD Work Phone: Pulmonary Medicine Comment on above: Orders Start: 09-04-2022 Telephone encounter Willam todd MD Work Phone: [facility] [place] Comment on above: Thrush concern Start: 08-25-2022 End: 08-25-2022 ambulatory Daphney Pro MD Work Phone: [facility] [place] Comment on above: COVID-19 virus infec tion (Primary Dx); Severe persistent asthma, unspecified whether complicated; Type 2 diabetes mellitus with diabetic neuropathy, without long-term current use of insulin (HCC) Start: 08-25-2022 End: 08-25-2022 Telemedicine consultation with patient Daphney Pro MD Work Phone: [facility] [place] Start: 08-24-2022 End: 08-24-2022 [facility] Start: 08-24-2022 ambulatory Divina Wright RN NURSE AUTOMOTIVE CUSTOMER EXPERIENCE ADVISOR Comment on above: Covid19 Concern Information Start: 08-09-2022 ambulatory Mona Corrigan MD Work Phone: Pulmonary Medicine Comment on above: LD lung CT scan Start: 08-07-2022 End: 08-07-2022 Office outpatient visit 25 minutes Willam Estrada MD Work Phone: [facility] [place] Comment on above: Acute bilateral low back pain with bilateral sciatica (Primary Dx); Radiculopathy of lumbar region; Spinal stenosis of lumbar region with neurogenic claudication; Type 2 diabetes mellitus with diabetic neuropathy, without long-term current use of insulin ([facility]); Cigarette smoker; Encounter for screening mammogram for breast cancer; Encounter for immunization Start: 08-05-2022 Refill Willam silva MD Work Phone: [facility] [place] Comment on above: Refill Request Start: 07-20-2022 Telephone encounter Willam todd MD Work Phone: [facility] [place] Comment on above: Medication Question Start: 07-16-2022 End: 07-16-2022 Subsequent hospital visit by physician [facility] Work Phone: Radiology Comment on above: Lower abdominal pain [R10.30] Start: 07-12-2022 Refill Willam silva MD Work Phone: [facility] [place] Comment on above: Refill Request Start: 07-09-2022 Telephone encounter Diana Andres APRN.CNP Work Phone: [facility] [place] Comment on above: Results Start: 07-05-2022 End: 07-05-2022 Patient encounter procedure Diana Andres APRN.CNP Work Phone: [facility] [place] Comment on above: Type 2 diabetes sara itus with diabetic neuropathy, without long-term current use of insulin ([facility]) (Primary Dx); Lower abdominal pain; Recent urinary tract infection; Thrush Start: 07-04-2022 Telephone encounter Diana Andres APRN.CNP Work Phone: [facility] [place] Comment on above: Patient Update Start: 07-02-2022 End: 07-02-2022 Emergency department patient visit [facility]Emergency [facility] Start: 07-02-2022 End: 07-02-2022 Patient encounter procedure Diana Andres APRN.CNP Work Phone: [facility] [place] Comment on above: Severe persistent as thma, unspecified whether complicated (Primary Dx); Chronic obstructive pulmonary disease, unspecified COPD type ([facility]); Type 2 diabetes mellitus with diabetic neuropathy, without long-term current use of insulin ([facility]); Recent urinary tract infection; Abdominal tenderness without rebound tenderness, unspecified location Start: 06-27-2022 End: 06-27-2022 Patient encounter procedure Diana Andres APRN.CNP Work Phone: [facility] [place] Comment on above: COPD with exacerbati on [facility] [place]) (Primary Dx); Moderate persistent asthma with acute exacerbation; Urinary tract infection without hematuria, site unspecified Start: 06-27-2022 End: 06-27-2022 Subsequent hospital visit by physician Xr [facility] Work Phone: Radiology Comment on above: Moderate persistent asthma with acute exacerbation [J45.41] Start: 06-26-2022 ambulatory Rola Browne RN Work Phone: [employer] Comment on above: Community Monitoring Outreach ([employer] Escalation) Start: 06-26-2022 Telephone encounter Willam todd MD Work Phone: Internal Medicine [place] Comment on above: Patient Update; Jeanie scott Start: 06-22-2022 End: 06-22-2022 Office outpatient visit 15 minutes Rufus Cruz PA-C Work Phone: [facility] Comment on above: Painful urination (P rimary Dx); URI, acute Start: 06-20-2022 End: 06-20-2022 Patient encounter procedure [facility] [place] Start: 06-11-2022 Refill Willam silva MD Work Phone: Internal Medicine [place] Comment on above: Refill Request; Refi ll Request Start: 06-01-2022 End: 06-01-[address] Willam Estrada Work Phone: [facility] Work Phone: Start: 06-01-2022 End: 06-01-[address] Willam Estrada Work Phone: [facility] [place], [facility] Start: 05-15-2022 ambulatory Sherie Kay RN Work Phone: [employer] Comment on above: Community monitoring outreach ([facility] triggered call) Start: 05-08-2022 End: 05-08-2022 ambulatory Steven Faye [facility] Comment on above: Chronic midline low back pain, unspecified whether sciatica present (Primary Dx); S/P lumbar laminectomy; Gait instability Start: 04-19-2022 End: 04-19-2022 ambulatory Steven Faye [facility] Comment on above: Chronic midline low back pain, unspecified whether sciatica present (Primary Dx); S/P lumbar laminectomy; Gait instability Start: 04-17-2022 End: 04-17-2022 ambulatory Steven aFye [facility] Comment on above: Chronic midline low back pain, unspecified whether sciatica present (Primary Dx); S/P lumbar laminectomy; Gait instability Start: 04-11-2022 Refill Willam silva MD Work Phone: [facility] [place] Comment on above: Refill Request Start: 04-10-2022 End: 04-10-2022 ambulatory Steven Faye [facility] Comment on above: S/P lumbar laminecto my; Chronic midline low back pain, unspecified whether sciatica present; Spinal stenosis of lumbar region, unspecified whether neurogenic claudication present; Gait instability Start: 04-06-2022 End: 04-06-2022 Office outpatient visit 25 minutes Willam Estrada MD Work Phone: Internal [facility] [place] Comment on above: Chronic midline low back [...] silva MD Work Phone: Internal Medicine [place] Start: 03-13-2022 End: 03-13-2022 Subsequent hospital visit by physician Ronaldo [facility] Work Phone: Radiology Comment on above: Acute cough [R05.1] Start: 03-09-2022 End: 03-09-2022 ambulatory Lori Matamoros PA-C Work Phone: General Surgery Comment on above: Hemorrhoids, unspeci fied hemorrhoid type (Primary Dx); Hiatal hernia; Gastroesophageal reflux disease, unspecified whether esophagitis present; Tubular adenoma Start: 03-09-2022 End: 03-09-2022 Telemedicine consultation with patient Lori Matamoros PA-C Work Phone: [facility] Start: 02-23-2022 Refill Wilalm silva MD Work Phone: [facility] [place] Comment on above: Refill Request Start: 02-22-2022 End: 02-22-2022 Subsequent hospital visit by physician Patti Manrique MD Work Phone: LD SURGERY Comment on above: Rectal bleeding [K62 .5] Start: 02-16-2022 End: 02-16-[address] Willam Estrada Work Phone: [facility] Start: 02-09-2022 End: 02-09-2022 Patient encounter procedure Patti Manrique MD Work Phone: General Surgery Comment on above: Rectal bleeding (Mitra tex Dx); Epigastric abdominal pain; Abdominal bloating; Rectus diastasis Start: 02-09-2022 Telephone encounter Patti Colindres MD Work Phone: General Surgery Comment on above: 02-22-2022 COLON EGD LODI Start: 02-06-2022 End: 02-06-2022 Patient encounter procedure Felipetania Jolly CHIEF PROGRAM OFFICER.UNDER CUTTING MACHINE OPERATOR Work Phone: [facility] Comment on above: Abdominal bloating ( Primary Dx); Abdominal mass, unspecified abdominal location Start: 02-06-2022 Telephone encounter Odilia Costello [facility] Work Phone: [facility] Comment on above: Allied Health Visit (MyChart Rewinder Operator ) Start: 01-24-2022 Non-patient / Non-visit Dr. Celestina Estrada Work Phone: [facility] Start: 01-24-2022 End: 01-24-[address] Willam Estrada Work Phone: [facility] Start: 01-18-2022 End: 01-18-2022 Patient encounter procedure Leila Rubi PA-C Work Phone: Pulmonary Medicine Comment on above: Stage 2 moderate ACTION FINISHER D by GOLD classification (HCC) (Primary Dx); Cigarette smoker; Seasonal allergies Start: 01-16-2022 ambulatory Willam silva MD Work Phone: [facility] [place] Comment on above: UTI Start: 01-15-2022 End: 01-15-[address] Willam Estrada Work Phone: [facility] Start: 01-15-2022 End: 01-15-[address] Willam Estrada Work Phone: [facility] Start: 01-09-2022 End: 01-09-2022 Office outpatient visit 25 minutes Willam Estrada MD Work Phone: [facility] [place] Comment on above: Gross hematuria (Mitra tex Dx); Acute cystitis with hematuria; Dysuria; Urinary frequency; Urinary urgency; Essential hypertension; Cigarette smoker Start: 01-09-2022 End: 01-09-[address] [facility]strada [facility] Start: 01-04-2022 End: 01-04-[address] Willam Estrada Work Phone: [facility] Start: 12-26-2021 End: 12-26-[address] Willam Estrada Work Phone: [facility], [facility] Start: 12-22-2021 End: 12-22-[address] Willam Estrada Work Phone[facility] Start: 12-18-2021 ambulatory Kimmy de la cruz RN Work Phone: [employer] Comment on above: community monitoring outreach (enrollment) Start: 12-15-2021 End: 12-15-[address] Willam Estrada Work Phone: [facility] Start: 12-14-2021 End: 12-14-[address] Willam Estrada Work Phone: [facility] Start: 12-14-2021 End: 12-14-[address] Willam Estrada Work Phone: [facility] Start: 12-13-2021 ambulatory Kimmy de la cruz RN Work Phone: [employer] Comment on above: community monitoring outreach (enrollment) Start: 12-13-2021 E-mail encounter fro m caregiver Willam Estrada MD Work Phone: [facility] [place] Start: 12-13-2021 Follow-up encounter Willam todd MD Work Phone: Internal Medicine [place] Comment on above: Follow-up appointmen t Start: 12-08-2021 Telephone encounter Willam todd MD Work Phone: Internal Medicine [place] Comment on above: Medication Request Start: 12-04-2021 End: 12-04-2021 Office outpatient visit 25 minutes Willam Estrada MD Work Phone: Internal Medicine [place] Comment on above: Neuropathy (Primary Dx); Anxiety and depression; Neck pain, musculoskeletal; Insomnia, unspecified type; Abdominal distension, gaseous Start: 11-15-2021 Non-patient / Non-visit Dr. Celestina Estrada Work Phone: [facility] Start: 10-11-2021 End: 10-11-[address] Willam Estrada Work Phone: [facility] Start: 10-04-2021 End: 10-04-[address] Willam Estrada Work Phone: [facility] Start: 08-14-2021 End: 08-14-2021 Subsequent hospital visit by physician Xr [facility] Work Phone: Radiology Comment on above: Chest pain, unspecif ied type [R07.9] Start: 03-22-2021 End: 03-22-2021 Subsequent hospital visit by physician Xr [facility] Work Phone: Radiology Comment on above: Cough [R05] Start: 08-17-2020 End: 08-17-2020 Subsequent hospital visit by physician Xr [facility] Work Phone: Radiology Comment on above: S/P lumbar laminecto my [Z98.890] Start: 08-02-2017 End: 08-02-2017 Ambulatory RADHA JETT Facility:[facility] Start: 07-22-2017 End: 07-23-2017 Ambulatory RADHA JETT Facility:[facility] Procedures Date Procedure Procedure Detail Performing Clinician Start: 03-13-2025 X-ray of chest, PA and lateral views Dr. Willam Estrada MD Work Phone: Start: 03-13-[address] Willam Estrada MD Work Phone: Start: 03-13-2025 Gluc bld gluc mntr dev cleared fda spec home use Sierrajesus Romano CHIEF PROGRAM OFFICER.UNDER CUTTING MACHINE OPERATOR Work Phone: Start: 02-25-2025 Urnls dip stick/tablet rgnt auto w/o microscopy Martha Diop CHIEF PROGRAM OFFICER.UNDER CUTTING MACHINE OPERATOR Work Phone: Start: 01-12-2025 Urnls dip stick/tablet rgnt auto w/o microscopy Deena Uche CHIEF PROGRAM OFFICER.UNDER CUTTING MACHINE OPERATOR Work Phone: Start: 12-18-2024 MRI of lumbar spine Dr. Willam Estrada MD Work Phone: Start: 11-23-2024 CT LUNG SCREEN WO MARGARET Haiderpster CHIEF PROGRAM OFFICER.UNDER CUTTING MACHINE OPERATOR Work Phone: Start: 10-07-2024 Screening digital breast [...] stick/tablet rgnt auto w/o microscopy Deena Ivey CHIEF PROGRAM OFFICER.UNDER CUTTING MACHINE OPERATOR Work Phone: Start: 03-30-2024 Culture bacterial quanttative colony count urine Willam Estrada MD Work Phone: Start: 03-20-2024 Urnls dip stick/tablet rgnt auto w/o microscopy Deena Ivey CHIEF PROGRAM OFFICER.UNDER CUTTING MACHINE OPERATOR Work Phone: Start: 03-04-2024 Radex elbow complete minimum 3 views Felipe Jolly CHIEF PROGRAM OFFICER.UNDER CUTTING MACHINE OPERATOR Work Phone: Start: 03-04-2024 Radiologic exam chest 2 views Felipe correa CHIEF PROGRAM OFFICER.UNDER CUTTING MACHINE OPERATOR Work Phone: Start: 02-18-2024 Radex foot complete minimum 3 views Allegra Berumen CHIEF PROGRAM OFFICER.UNDER CUTTING MACHINE OPERATOR Work Phone: Start: 11-28-2023 End: 11-28-[address] Willam Estarda Work Phone: Start: 11-22-2023 CT LUNG SCREEN JAYLON Mora CHIEF PROGRAM OFFICER.UNDER CUTTING MACHINE OPERATOR Work Phone: Start: 11-11-2023 Nitric oxide gas [...] 05-28-2023 Radiologic exam chest 2 views Deena Ri ggs CHIEF PROGRAM OFFICER.UNDER CUTTING MACHINE OPERATOR Work Phone: Start: 05-26-2023 CT of abdomen and pelvis without contrast Dr. Willam Estrada Work Phone: Start: 04-24-2023 Co diffusing capacity Leila Deng Janeen PA-C Work Phone: Start: 04-09-2023 Ultrasound elastography [...] 11-21-2022 Radiologic exam chest 2 views Deena Ri ggs CHIEF PROGRAM OFFICER.UNDER CUTTING MACHINE OPERATOR Work Phone: Start: 10-15-2022 CT of chest [...] pelvic nonobstetric image dcmtn limited/f/u Diana Andres CHIEF PROGRAM OFFICER.UNDER CUTTING MACHINE OPERATOR Work Phone: Start: 07-02-2022 CT of abdomen and pelvis without contrast Start: 07-02-2022 Urnls dip stick/tablet rgnt auto w/o microscopy Diana Andres CHIEF PROGRAM OFFICER.UNDER CUTTING MACHINE OPERATOR Work Phone: Start: 06-27-2022 Radiologic exam chest 2 views Willam todd MD Work Phone: Start: 06-22-2022 Urnls dip stick/tablet rgnt auto w/o microscopy Rufus Cruz PA-C Work Phone: Start: 06-01-[address] Willam hernandez Work Phone: Start: 06-01-[address] Willam silva Work Phone: Start: 03-13-2022 Radiologic exam chest 2 views Deena Ri ggs CHIEF PROGRAM OFFICER.UNDER CUTTING MACHINE OPERATOR Work Phone: Start: 02-22-2022 Gluc bld gluc mntr dev cleared fda spec home use Camden Snyder CHIEF PROGRAM OFFICER.INSURANCE RATER Work Phone: Start: 02-18-2022 Colonoscopy Lori Matamoros [...] Radiologic exam chest 2 views Deanna manriquez CHIEF PROGRAM OFFICER.UNDER CUTTING MACHINE OPERATOR Work Phone: Start: 03-22-2021 Radiologic exam chest 2 views Carlos luna CHIEF PROGRAM OFFICER.UNDER CUTTING MACHINE OPERATOR Work Phone: Start: 08-17-2020 Radex spine lumbosacral minimum 4 views Deirdre Naidu PA-C Work Phone: Start: 12-13-2011 Colonoscopy Willam Estrada MD Work Phone: Enteric Bacteriology Dr. Brandy Estrada Work Phone: History of cholecystectomy Hx of cholecys tectomy Dr. Willam Estrada Work Phone: Nucleic acid assay Dr. Willam Estrada Work Phone: Plan of Treatment Date Care Activity Detail Author Start: 11-27-2033 Screening for malignant neoplasm of colon [facility] Start: 02-19-2032 Colonoscopy COLONOSCOPY [facility] Start: 02-19-2032 COLORECTAL CANCER SCREENING COLORECTAL CANCER SCREENING [facility] Start: 02-19-2032 Screening for malignant neoplasm of colon [facility] Start: 12-25-2025 Hepatitis B surface antibody level LDL Cholesterol [facility] Start: 12-20-2025 End: 12-20-2025 Patient encounter procedure 12/20/2025 3:40 PM EDT Office Visit Internal Medicine [place] [address] [place] [address] Willam Estrada MD [address] [place] [address] 4 month follow up [facility] [place] Comment on above: 4 month follow up Start: 11-29-2025 End: 11-29-2025 Patient encounter procedure Cat Scan Comment on above: yearly LDCT yearly LCS Start: 11-24-2025 BP Controlled (<130/80) BP Controlled (<130/80) [facility] Start: 11-23-2025 Screening for malignant neoplasm of lung Lung Cancer Screening [facility] Start: 11-18-2025 Annual PCP Team Chronic Disease Visit Annual PCP Team Chronic Disease Visit [facility] Start: 11-18-2025 BP Controlled (<130/80) BP Controlled (<130/80) [facility] Start: 10-13-2025 Glaucoma screening Dilated Retinal Exam [facility] Start: 10-07-2025 Screening for malignant neoplasm of breast Mammogram Screening [facility] Start: 08-12-2025 Annual PCP Team Chronic Disease Visit Annual PCP Team Chronic Disease Visit [facility] Start: 08-10-2025 End: 08-10-2025 Patient encounter procedure 08/10/2025 6:20 PM EST Office Visit Internal Medicine [place] [address] [place] [address] Willam Estrada MD [address] [place] [address] 4 month follow up [facility] [place] Comment on above: 4 month follow up Start: 08-01-2025 BP Controlled (<130/80) BP Controlled (<130/80) [facility] Start: 07-29-2025 Annual PCP Team Chronic Disease Visit Annual PCP Team Chronic Disease Visit [facility] Start: 07-29-2025 BP Controlled (<130/80) BP Controlled (<130/80) [facility] Start: 06-26-2025 Hemoglobin A1c measurement HbA1C [facility] Start: 06-23-2025 Screening for malignant neoplasm of lung Lung Cancer Screening [facility] Start: 06-22-2025 Hepatitis B screening Urine Albumin:Creatinine Ratio [facility] Start: 06-22-2025 Hepatitis B surface antibody level LDL Cholesterol [facility] Start: 05-19-2025 Annual PCP Team Chronic Disease Visit Annual PCP Team Chronic Disease Visit [facility] Start: 05-19-2025 BP Controlled (<130/80) BP Controlled (<130/80) [facility] Start: 05-10-2025 Influenza vaccination [facility] Start: 05-07-2025 BP Controlled (<130/80) BP Controlled (<130/80) [facility] Start: 04-20-2025 Annual PCP Team Chronic Disease Visit Annual PCP Team Chronic Disease Visit [facility] Start: 04-20-2025 BP Controlled (<130/80) BP Controlled (<130/80) [facility] Start: 03-30-2025 Annual PCP Team Chronic Disease Visit Annual PCP Team Chronic Disease Visit [facility] Start: 03-30-2025 BP Controlled (<130/80) BP Controlled (<130/80) [facility] Start: 03-24-2025 End: 03-24-2025 Patient encounter procedure [facility] [place] Comment on above: 4 month follow up 4 month follow up--P er insurance please address statin. TE 03/15/25 Start: 03-13-2025 [facility] Start: 03-13-2025 End: 03-13-2025 [facility] Start: 03-02-2025 End: 03-02-2025 Patient encounter procedure 03/02/2025 3:30 PM EDT Office Visit Vascular Surgery [address] [place] [address] Jonnathan Mckeon, DO [address] [place] [address] rescheduled from 01/19 Vascular Surgery Comment on above: rescheduled from 01/19 Start: 02-17-2025 Annual PCP Team Chronic Disease Visit Annual PCP Team Chronic Disease Visit [facility] Start: 02-04-2025 Patient referral [facility] Work Phone: Start: 01-22-2025 End: 01-22-2025 Patient encounter procedure Pulmonary Medicine Comment on above: 8 wk f/u Start: 01-19-2025 End: 01-19-2025 Patient encounter procedure 01/19/2025 3:00 PM EDT Office Visit Vascular Surgery [address] [place] [address] Jonnathan Mckeon, DO [address] [place] [address] Family history of abdominal aortic aneurysm (AAA) [Z82.49]; 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] Vascular Surgery Comment on above: Family history of abdominal aortic aneur ysm (AAA) [Z82.49]; 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] Start: 12-21-2024 Hemoglobin A1c measurement HbA1C [facility] Start: 12-05-2024 Annual PCP Team Chronic Disease Visit Annual PCP Team Chronic Disease Visit [facility] Start: 11-25-2024 End: 11-25-2024 Patient encounter procedure 11/25/2024 1:00 PM EDT Office Visit Pulmonary Medicine [address] [place] [address] Leila Rubi PA-C [address] [facility] [place] [address] EST PATIENT / ANNUAL Pulmonary Medicine Comment on above: EST PATIENT / ANNUAL Start: 11-24-2024 End: 11-24-2024 Patient encounter procedure 11/24/2024 1:45 PM EDT Office Visit Neurology [address] [place] [address] Indigo Nichols PA-C [address] [place] [address] Neuropathy, no EMG Neurology Comment on above: Neuropathy, no EMG Start: 11-23-2024 End: 11-23-2024 Patient encounter procedure 11/23/2024 3:40 PM EDT Appointment Cat Scan [address] [place], [place] [id number] Tobacco use current [Z72.0] Cat Scan Comment on above: Tobacco use current [Z72.0] Start: 11-21-2024 Screening for malignant neoplasm of lung Lung Cancer Screening [facility] Start: 11-18-2024 End: 11-18-2024 Patient encounter procedure 11/18/2024 4:00 PM EDT Office Visit Internal Medicine [place] [address] [facility] [place], [place] [id number] Willam Estrada MD [address] [facility] [place] [address] 4 month follow up-DM [facility] [place] Comment on above: 4 month follow up-DM Start: 11-18-2024 Annual PCP Team Chronic Disease Visit Annual PCP Team Chronic Disease Visit [facility] Start: 11-18-2024 BP Controlled (<130/80) BP Controlled (<130/80) [facility] Start: 11-15-2024 Hepatitis B surface antibody level LDL Cholesterol [facility] Start: 11-03-2024 End: 11-03-2024 Patient encounter procedure 11/03/2024 3:45 PM EST Office Visit [facility] [address] [facility] [place] [id number] Indigo Nichols PA-C [address] [place], [place] [id number] Type 2 diabetes mellitus with diabetic neuropathy, without long-term current use of insulin (HCC) [E11.40] Neurology Comment on above: Type 2 diabetes mellitus with diabetic n europathy, without long-term current use of insulin (HCC) [E11.40] Start: 10-10-2024 Glaucoma screening Dilated Retinal Exam [facility] Start: 10-07-2024 End: 10-07-2024 Patient encounter procedure 10/07/2024 3:00 PM EST Appointment Mammogram [address] [place] [id number] mammo w starla Mammogram Comment on above: mammo w starla Start: 09-30-2024 Screening for malignant neoplasm of breast Mammogram Screening [facility] Start: 09-16-2024 End: 09-16-2024 Patient encounter procedure 09/16/2024 4:40 PM EST Office Visit Internal Medicine [place] [address] [place] [address] Deanna Pagan, CHIEF PROGRAM OFFICER.UNDER CUTTING MACHINE OPERATOR [address] [place] [address] 1 Month F/U [facility] [place] Comment on above: 1 Month F/U Start: 09-08-2024 Patient referral [facility] Work Phone: Start: 08-12-2024 End: 08-12-2024 Patient encounter procedure 08/12/2024 4:20 PM EST Office Visit [facility] [place] [address] [facility] [place] [address] Deanna Pagan, CHIEF PROGRAM OFFICER.UNDER CUTTING MACHINE OPERATOR [address] [place] [address] hospital follow up for pneumonia and low bp [facility] [place] Comment on above: hospital follow up for pneumonia and low bp Start: 08-11-2024 End: 08-11-2024 Patient encounter procedure 08/11/2024 2:45 PM EST Office Visit Pulmonary Medicine [address] [place] [facility] [place] [address] Mona Corrigan MD [address] [place] [address] follow up / pneumonia Pulmonary Medicine Comment on above: follow up / pneumonia Start: 08-11-2024 End: 11-10-2024 IgE [Units/volume] in Serum or Plasma [facility] Comment on above: Expected: 08/11/2024, Expires: Start: 08-11-2024 End: 11-10-2024 Natriuretic peptide.B prohormone N-Terminal [Mass/volume] in Serum or Plasma [facility] Work Phone: Comment on above: Expected: 08/11/2024, Expires: Start: 08-10-2024 End: 08-10-2024 Patient encounter procedure 08/10/2024 3:00 PM EST Office Visit [facility] Medicine [place] [address] [facility] [place] [address] Deanna Pagan, CHIEF PROGRAM OFFICER.UNDER CUTTING MACHINE OPERATOR [address] [facility] [place] [address] hospital follow up for pneumonia and low bp [facility] [place] Comment on above: hospital follow up for pneumonia and low bp Start: 08-09-2024 [facility] Start: 08-09-2024 [facility] Start: 08-07-2024 End: 08-07-2024 Patient encounter procedure 08/07/2024 11:00 AM EST Office Visit Internal Medicine [place] [address] [facility] [place] [address] Leilani Ramirez, CHIEF PROGRAM OFFICER.JEWELRY MODEL MAKER [address] [facility] [place] [address] Discharged from [facility] 08/05/24- Rule out sepsis [facility] [place] Comment on above: Discharged from [facility] 08/05/24- Rule out s epsis Start: 08-06-2024 Annual PCP Team Chronic Disease Visit Annual PCP Team Chronic Disease Visit [facility] Start: 08-06-2024 [facility] Start: 08-05-2024 [facility] Start: 08-05-2024 Patient discharge [facility] Start: 08-03-2024 [facility] Start: 08-02-2024 Following clinical pathway protocol [facility] Start: 08-02-2024 Assessment of risk of venous thromboembolism [facility] Start: 08-02-2024 Cardiac monitoring [facility] Start: 08-02-2024 Care regimes management [facility] Start: 08-02-2024 Catheterization of vein [facility] Start: 08-02-2024 Inhalation therapy procedure [facility] Start: 08-02-2024 Insertion of catheter into peripheral vein [facility] Start: 08-02-2024 Measuring intake and output [facility] Start: 08-02-2024 Notification of physician [facility] Start: 08-02-2024 Oxygen therapy [facility] Start: 08-02-2024 Providing care according to standard [facility] Start: 08-02-2024 Provision of activity privileges [facility] [facility]24 Referral to service [facility] Start: 08-02-2024 Tobacco use cessation education [facility] Start: 08-02-2024 End: 08-02-2024 [facility] Start: 08-02-2024 Admission procedure [facility] Start: 07-29-2024 End: 10-28-2024 Cobalamin (Vitamin B12) [Mass/volume] in Serum or Plasma [facility] Comment on above: Expected: 07/29/2024, Expires: Start: 07-29-2024 End: 10-28-2024 Methylmalonate [Moles/volume] in Serum or Plasma [facility] Work Phone: Comment on above: Expected: 07/29/2024, Expires: Start: 07-29-2024 End: 10-28-2024 PROT ELECT SERUM WITH ODELL AND INTERP [facility] Comment on above: Expected: 07/29/2024, Expires: Start: 07-29-2024 End: 10-28-2024 Thyrotropin [Units/volume] in Serum or Plasma [facility] Comment on above: Expected: 07/29/2024, Expires: 5 Start: 07-29-2024 End: 07-29-2024 Patient encounter procedure [facility] [place] Comment on above: 4 month follow up-DM Type 2 diabetes sara itus with diabetic neuropathy, without long-term current use of insulin (HCC) [E11.40] Start: 07-23-2024 Covid-19 Vaccine ( season) Covid-19 Vaccine () [facility] Comment on above: Postponed from 05/10/2023 (Declined at t his time) Start: 07-23-2024 Hepatitis B Vaccine (1 of 3 - Risk 3-dose series) Hepatitis B Vaccine (1 of 3 - Risk 3-dose series) [facility] Comment on above: Postponed from 2020 (Declined at t his time) Start: 07-23-2024 RSV Vaccine (1 - 1-dose 60+ series) RSV Vaccine (1 - 1-dose 60+ series) [facility] Comment on above: Postponed from 2020 (Declined at t his time) Start: 07-23-2024 RSV Vaccine (1 - Risk 60-74 years 1-dose series) RSV Vaccine (1 - Risk 60-74 years 1-dose series) [facility] Comment on above: Postponed from 2020 (Declined at t his time) Start: 07-23-2024 Urine microalbumin profile DTaP,Tdap,Td Vaccine (3 - Tdap) [facility] Comment on above: Postponed from 09/14/2018 (Declined at t his time) Start: 06-30-2024 End: 06-30-2024 Patient encounter procedure 06/30/2024 3:00 PM EDT Office Visit Pulmonary Medicine [address] [place] [address] Roxi Rouse APRN.UNDER CUTTING MACHINE OPERATOR [address] [place] [address] F/U CT RESULTS [facility] Comment on above: F/U CT RESULTS Start: 06-23-2024 End: 06-23-2024 Patient encounter procedure 06/23/2024 3:20 PM EDT Appointment Cat Scan [address] [place] [address] Cat Scan Comment on above: CHEST CT Start: 06-23-2024 End: 09-22-2024 Microalbumin/Creatinine [Mass Ratio] in Urine ALBUMIN/CREATININE RATIO, URINE Lab Routine Type 2 diabetes mellitus with hyperglycemia, without long-term current use of insulin (HCC) Expected: 06/23/2024, Expires: 09/22/2024 [facility] Comment on above: Expected: 06/23/2024, Expires: Start: 06-22-2024 End: 06-06-2025 CT Chest WO contrast CT CHEST WO IVCON Radiology Routine Lung nodules Expected: 06/22/2024, Expires: 06/06/2025 [facility] Work Phone: Comment on above: Expected: 06/22/2024, Expires: Start: 05-31-2024 Annual PCP Team Chronic Disease Visit Annual PCP Team Chronic Disease Visit [facility] Start: 05-31-2024 BP Controlled (<130/80) BP Controlled (<130/80) [facility] Start: 05-24-2024 Annual PCP Team Chronic Disease Visit Annual PCP Team Chronic Disease Visit [facility] Start: 05-20-2024 BP Controlled (<130/80) BP Controlled (<130/80) [facility] Start: 05-10-2024 Covid-19 Vaccine ( season) Covid-19 Vaccine () [facility] Start: 05-10-2024 Covid-19 Vaccine () Covid-19 Vaccine () [facility] Start: 05-10-2024 Influenza vaccination Influ[facility] (#[facility] Start: 05-07-2024 End: 05-07-2024 Patient encounter procedure 05/07/2024 2:45 PM EDT Office Visit Pulmonary Medicine [address] [place] [address] Mona Corrigan MD [address] [place] [address] 6 MONTH FOLLOW UP [facility] Comment on above: 6 MONTH FOLLOW UP Start: 05-06-2024 Hepatitis B surface antibody level LDL Cholesterol [facility] Start: 04-20-2024 End: 04-20-2024 Patient encounter procedure 04/20/2024 10:40 AM EDT Office Visit [facility] [place] [address] [place] [address] Willam Estrada MD [address] [place] [address] Asthma Flare (Nurse Triage Call) [facility] [place] Comment on above: Asthma Flare (Nurse Triage Call) Start: 04-03-2024 ANNUAL PCP TEAM CHRONIC DISEASE VISIT ANNUAL PCP TEAM CHRONIC DISEASE VISIT [facility] Start: 03-30-2024 End: 03-30-2024 Patient encounter procedure 03/30/2024 2:00 PM EDT Office Visit [facility] [place] [address] [place], [place] [id number] Willam Estrada MD [address] [place], [place] [address] [facility] f/u sepsis,uti (pt declined to schedule sooner appt, wants to wait until she finishes antibiotic) [facility] [place] Comment on above: [facility] f/u sepsis,uti (pt declined to sched ule sooner appt, wants to wait until she finishes antibiotic) Start: 03-24-2024 End: 03-24-2024 Patient encounter procedure 03/24/2024 6:20 PM EDT Office Visit [facility] [place] [address] [place], [place] [phone] Willam Estrada MD [address] [place], [place] [phone] 4 month follow up [facility] [place] Comment on above: 4 month follow up Start: 03-07-2024 Hemoglobin A1c measurement HbA1C [facility] Start: 03-04-2024 End: 03-18-2024 COVID & INFLUENZA A/B & RSV NAAT, ROUTINE COVID & INFLUENZA A/B & RSV NAAT, ROUTINE Microbiology Routine Acute cough Suspected COVID-19 virus infection Expected: 03/04/2024, Expires: 03/18/2024 [facility] Work Phone: Comment on above: Expected: 03/04/2024, Expires: Start: 02-18-2024 End: 02-18-2024 Patient encounter procedure 02/18/2024 3:20 PM EDT Office Visit [facility] [place] [address] [place], [place] [phone] Allegra Berumen APRN.UNDER CUTTING MACHINE OPERATOR [address] [place], [place] [phone] CPAP follow up for insurance [facility] [place] Comment on above: CPAP follow up for insurance Start: 02-16-2024 Hemoglobin A1c measurement HbA1C [facility] Start: 12-22-2023 BP CONTROLLED (<130/80) BP CONTROLLED (<130/80) [facility] Start: 12-20-2023 Hepatitis B screening URINE ALBUMIN:CREATININE RATIO [facility] Start: 12-20-2023 Hepatitis B surface antibody level LDL CHOLESTEROL [facility] Start: 12-19-2023 ANNUAL PCP TEAM CHRONIC DISEASE VISIT ANNUAL PCP TEAM CHRONIC DISEASE VISIT [facility] Start: 12-19-2023 BP CONTROLLED (<130/80) BP CONTROLLED (<130/80) [facility] in Start: 12-06-2023 ANNUAL PCP TEAM CHRONIC DISEASE VISIT ANNUAL PCP TEAM CHRONIC DISEASE VISIT [facility] Start: 12-06-2023 SHINGRIX VACCINE (1 of 2) SHINGRIX VACCINE (1 of 2) [facility] Comment on above: Postponed from 2010 (Declined at t his time) Start: 11-28-2023 Patient discharge [facility] Start: 11-22-2023 BP CONTROLLED (<130/80) BP CONTROLLED (<130/80) [facility] Start: 11-06-2023 Hemoglobin A1c measurement HbA1C [facility] Start: 11-06-2023 Hemoglobin A1c/Hemoglobin.total in Blood HbA1C [facility] Start: 10-09-2023 Hepatitis C antibody, confirmatory test DILATED RETINAL EXAM [facility] Start: 10-08-2023 ANNUAL PCP TEAM CHRONIC DISEASE VISIT ANNUAL PCP TEAM CHRONIC DISEASE VISIT [facility] Start: 10-08-2023 BP CONTROLLED (<130/80) BP CONTROLLED (<130/80) [facility] Start: 09-20-2023 [facility] Start: 09-14-2023 Mammography [facility] Start: 08-25-2023 ANNUAL PCP TEAM CHRONIC DISEASE VISIT ANNUAL PCP TEAM CHRONIC DISEASE VISIT [facility] Start: 08-07-2023 ANNUAL PCP TEAM CHRONIC DISEASE VISIT ANNUAL PCP TEAM CHRONIC DISEASE VISIT [facility] Start: 07-31-2023 Hepatitis B surface antibody level LDL CHOLESTEROL [facility] Start: 07-05-2023 ANNUAL PCP TEAM CHRONIC DISEASE VISIT ANNUAL PCP TEAM CHRONIC DISEASE VISIT [facility] Start: 07-05-2023 BP CONTROLLED (<130/80) BP CONTROLLED (<130/80) [facility] Start: 07-02-2023 ANNUAL PCP TEAM CHRONIC DISEASE VISIT ANNUAL PCP TEAM CHRONIC DISEASE VISIT [facility] Start: 07-01-2023 Egd transoral biopsy single/multiple EGD BIOPSY SINGLE/MULTIPLE [facility] Start: 07-01-2023 Patient discharge [facility] Start: 06-28-2023 [facility] Start: 06-27-2023 [facility] Start: 06-27-2023 ANNUAL PCP TEAM CHRONIC DISEASE VISIT ANNUAL PCP TEAM CHRONIC DISEASE VISIT [facility] Start: 06-20-2023 Hemoglobin A1c/Hemoglobin.total in Blood HBA1C [facility] Start: 05-31-2023 End: 07-31-2023 JOSE F BY IFA WITH REFLEX [facility] Work Phone: Comment on above: Expected: 05/31/2023, Expires: Start: 05-10-2023 Covid-19 Vaccine ( season) Covid-19 Vaccine () [facility] Start: 05-10-2023 Influenza vaccination [facility] Start: 04-06-2023 ANNUAL PCP TEAM CHRONIC DISEASE VISIT ANNUAL PCP TEAM CHRONIC DISEASE VISIT [facility] Start: 04-06-2023 BP CONTROLLED (<130/80) BP CONTROLLED (<130/80) [facility] in Start: 04-06-2023 PNEUMOCOCCAL (2 - PCV) PNEUMOCOCCAL (2 - PCV) [facility] Comment on above: Postponed from 09/09/2011 (Declined at t his time) Start: 04-06-2023 Urine microalbumin profile DTAP,TDAP,TD (3 - Tdap) [facility] Comment on above: Postponed from 09/14/2018 (Declined at t his time) Start: 02-09-2023 BP CONTROLLED (<130/80) BP CONTROLLED (<130/80) [facility] in Start: 02-06-2023 BP CONTROLLED (<130/80) BP CONTROLLED (<130/80) [facility] in Start: 01-18-2023 BP CONTROLLED (<130/80) BP CONTROLLED (<130/80) [facility] Start: 01-09-2023 ANNUAL PCP TEAM CHRONIC DISEASE VISIT ANNUAL PCP TEAM CHRONIC DISEASE VISIT [facility] Start: 01-07-2023 Elastase, pancreatic (el-1), fecal; quantitative [facility] Start: 01-07-2023 Protein measurement [facility] Start: 12-04-2022 ANNUAL PCP TEAM CHRONIC DISEASE VISIT ANNUAL PCP TEAM CHRONIC DISEASE VISIT [facility] Start: 11-21-2022 End: 12-05-2022 Influenza virus A and B RNA and SARS-CoV-2 (COVID-19) N gene panel - Respiratory specimen by NICOLE with probe detection [facility] Work Phone: Comment on above: Expected: 11/21/2022, Expires: Start: 10-31-2022 Hemoglobin A1c/Hemoglobin.total in Blood HBA1C [facility] Start: 10-09-2022 Hepatitis C antibody, confirmatory test DILATED RETINAL EXAM [facility] Start: 09-28-2022 Hemoglobin A1c/Hemoglobin.total in Blood HBA1C [facility] Start: 09-12-2022 FECAL OCCULT BLOOD FECAL OCCULT BLOOD [facility] Start: 09-12-2022 Screening for malignant neoplasm of colon Fecal Occult Blood [facility] Start: 09-11-2022 Mammography MAMMOGRAM [facility] Start: 08-31-2022 BP CONTROLLED (<130/80) BP CONTROLLED (<130/80) [facility] in Start: 08-24-2022 [facility] Start: 08-14-2022 Hepatitis B screening URINE ALBUMIN:CREATININE RATIO [facility] Start: 08-07-2022 End: 10-07-2022 CBC panel - Blood by Automated count CBC Lab Routine Essential hypertension Expected: 08/07/2022 (Approximate), Expires: 10/07/2022 [facility] Work Phone: Comment on above: Expected: 08/07/2022 (Approximate), Expi res: 10/07/2022 Start: 08-07-2022 End: 10-07-2022 Comprehensive metabolic 2000 panel - Serum or Plasma COMP METABOLIC PANEL Lab Routine Type 2 diabetes mellitus with diabetic neuropathy, without long-term current use of insulin (HCC) Essential hypertension Encounter for long-term current use of medication Expected: 08/07/2022 (Approximate), Expires: 10/07/2022 [facility] Work Phone: Comment on above: Expected: 08/07/2022 (Approximate), Expi res: 10/07/2022 Start: 08-07-2022 End: 10-07-2022 Hemoglobin A1c in Blood HGB A1C Lab Routine Type 2 diabetes mellitus with diabetic neuropathy, without long-term current use of insulin (HCC) Encounter for long-term current use of medication Expected: 08/07/2022 (Approximate), Expires: 10/07/2022 [facility] Work Phone: Comment on above: Expected: 08/07/2022 (Approximate), Expi res: 10/07/2022 Start: 08-07-2022 End: 10-07-2022 Lipid 1996 panel - Serum or Plasma LIPID PANEL BASIC Lab Routine Pure hyperglyceridemia Expected: 08/07/2022 (Approximate), Expires: 10/07/2022 [facility] Work Phone: Comment on above: Expected: 08/07/2022 (Approximate), Expi res: 10/07/2022 Start: 06-22-2022 End: 08-22-2022 Bacteria identified in Urine by Culture URINE CULTURE Microbiology Routine Painful urination Expected: 06/22/2022, Expires: 08/22/2022 [facility] Work Phone: Comment on above: Expected: 06/22/2022, Expires: 2 Start: 06-01-2022 COVID-19 VACCINE (5 - Booster for Moderna series) COVID-19 VACCINE (5 - Booster for Moderna series) [facility] Start: 05-10-2022 Influenza vaccination INFLUENZA (#1) [facility] Start: 03-31-2022 3 comp foot exam completed DIABETIC FOOT EXAM [facility] Start: 03-31-2022 Diabetic foot examination Diabetic Foot Exam [facility] Start: 03-31-2022 SHINGRIX VACCINE (1 of 2) SHINGRIX VACCINE (1 of 2) [facility] Comment on above: Postponed from 2010 (Declined at t his time) Start: 03-31-2022 Urine microalbumin profile DTAP,TDAP,TD (3 - Tdap) [facility] Comment on above: Postponed from 09/14/2018 (Declined at t his time) Start: 03-30-2022 Hepatitis B surface antibody level LDL CHOLESTEROL [facility] Start: 03-27-2022 End: 05-27-2022 SCHEDULE LAB TESTING SCHEDULE LAB TESTING Lab Routine Expected: 03/27/2022, Expires: 05/27/2022 [facility] Work Phone: Comment on above: Expected: 03/27/2022, Expires: Start: 02-12-2022 Hemoglobin A1c/Hemoglobin.total in Blood HBA1C [facility] Start: 12-15-2021 Ova and Parasites Ova and Parasites [facility] Work Phone: Start: 12-12-2021 Colonoscopy COLONOSCOPY [facility] Start: 12-12-2021 COLORECTAL CANCER SCREENING COLORECTAL CANCER SCREENING [facility] Start: 12-02-2021 COVID-19 VACCINE (4 - Booster for Moderna series) COVID-19 VACCINE (4 - Booster for Moderna series) [facility] Start: 2020 Hepatitis B Vaccine (1 of 3 - Risk 3-dose series) Hepatitis B Vaccine (1 of 3 - Risk 3-dose series) [facility] Start: 2020 RSV Vaccine (1 - 1-dose 60+ series) RSV Vaccine (1 - 1-dose 60+ series) [facility] Start: 2020 RSV Vaccine (1 - Risk 60-74 years 1-dose series) RSV Vaccine (1 - Risk 60-74 years 1-dose series) [facility] Start: 09-14-2018 Urine microalbumin profile [facility] Start: 07-10-2017 Medicare Annual Wellness Visit Medicare Annual Wellness Visit [facility] Start: 2015 Influenza vaccination LUNG CANCER SCREENING [facility] Start: 09-09-2011 PNEUMOCOCCAL (2 - PCV) PNEUMOCOCCAL (2 - PCV) [facility] Start: 09-09-2011 Pneumococcal vaccination Pneumococcal Vaccine (2 - PCV) [facility] Start: 2010 Influenza vaccination LUNG CANCER SCREENING [facility] Start: 2010 Screening for malignant neoplasm of lung Lung Cancer Screening [facility] Start: 2010 SHINGRIX VACCINE (1 of 2) SHINGRIX VACCINE (1 of 2) [facility] Start: 2005 COLOGUARD (FIT-DNA) COLOGUARD (FIT-DNA) [facility] Start: [address] COLONOGRAPHY [facility] Start: 2005 Screening for malignant neoplasm of colon [facility] Start: 2005 SIGMOIDOSCOPY SIGMOIDOSCOPY [facility] Start: 1990 Zoledronic acid therapy ALPHA-1 ANTITRYPSIN DEFICIENCY SCREENING [facility] Bacteria identified in Urine by Culture URINE CULTURE Microbiology Routine Lower abdominal pain Recent urinary tract infection 07/05/2022 2:03 PM EDT [facility] Work Phone: Bacteria identified in Urine by Culture URINE CULTURE Microbiology Routine Cystitis Ordered: 03/20/2024 [facility] Work Phone: Comment on above: Ordered: 03/20/2024 Bacteria identified in Urine by Culture URINE CULTURE Microbiology Routine Pain with urination 08/01/2024 2:44 PM EST [facility] Work Phone: Bacteria identified in Urine by Culture BACTERIAL CULTURE, URINE Microbiology Routine Urinary frequency Ordered: 01/12/2025 [facility] Work Phone: Comment on above: Ordered: 01/12/2025 Bacteria identified in Urine by Culture BACTERIAL CULTURE, URINE Microbiology Routine Urinary frequency Ordered: 02/25/2025 [facility] Work Phone: Comment on above: Ordered: 02/25/2025 End: 12-05-2023 CBC panel - Blood by Automated count CBC Lab Routine Essential hypertension Encounter for long-term current use of medication Every 4 months for 4 Occurrences starting 12/05/2022 until 12/05/2023, 1 completed [facility] Work Phone: Comment on above: Every 4 months for 4 Occurrences startin g 12/05/2022 until 12/05/2023, 1 completed End: 04-20-2025 CBC panel - Blood by Automated count COMPLETE BLOOD COUNT Lab Routine Essential hypertension Encounter for long-term current use of medication Every 3 months for 30 Occurrences starting 04/20/2024 until 04/20/2025 [facility] Comment on above: Every 3 months for 30 Occurrences starti ng 04/20/2024 until 04/20/2025 Colonoscopy [facility] Colonoscopy [facility] End: 02-09-2023 COLONOSCOPY DIAGNOSTIC COLONOSCOPY DIAGNOSTIC Endoscopy Routine Rectal bleeding 1 Occurrences starting 02/09/2022 until 02/09/2023 [facility] Work Phone: Comment on above: 1 Occurrences starting 02/09/2022 until 02/09/2023 End: 02-22-2022 COLONOSCOPY DIAGNOSTIC COLONOSCOPY DIAGNOSTIC Endoscopy Routine Rectal bleeding 1 Occurrences starting 02/22/2022 until 02/22/2022 [facility] Work Phone: Comment on above: 1 Occurrences starting 02/22/2022 until 02/22/2022 End: 12-05-2023 Comprehensive metabolic 2000 panel - Serum or Plasma COMP METABOLIC PANEL Lab Routine Essential hypertension Type 2 diabetes mellitus with diabetic neuropathy, without long-term current use of insulin (HCC) Encounter for long-term current use of medication Every 4 months for 4 Occurrences starting 12/05/2022 until 12/05/2023, 1 completed [facility] Work Phone: Comment on above: Every [...] for 30 Occurrences starting 04/20/2024 until 04/20/2025 [facility] Comment on above: Every 3 months for 30 Occurrences starti ng 04/20/2024 until 04/20/2025 COVID & INFLUENZA A/ B & RSV PCR, ROUTINE COVID & INFLUENZA A/B & RSV PCR, ROUTINE Microbiology Routine Sinobronchitis Acute upper respiratory infection 05/19/2024 7:47 PM EDT [facility] Work Phone: End: 12-10-2024 CT Chest for screening WO contrast CT LUNG SCREEN WO IVCON Radiology Routine Tobacco use current 1 Occurrences starting 11/11/2023 until 12/10/2024 [facility] Work Phone: Comment on above: 1 Occurrences starting 11/11/2023 until 12/10/2024 End: 12-24-2024 CT Chest for screening WO contrast CT LUNG SCREEN WO IVCON Radiology Routine Tobacco use current 1 Occurrences starting 11/25/2023 until 12/24/2024 [facility] Work Phone: Comment on above: 1 Occurrences starting 11/25/2023 until 12/24/2024 End: 12-24-2025 CT Chest for screening WO contrast CT LUNG SCREEN WO IVCON Radiology Routine Encounter for screening for lung cancer Tobacco use current 1 Occurrences starting 11/24/2024 until 12/24/2025 [facility] Work Phone: Comment on above: 1 Occurrences starting 11/24/2024 until 12/24/2025 CT Chest WO contrast CT CHEST WO IVCON Radiology Routine Lung nodules 06/23/2024 3:51 PM EDT [facility] Work Phone: End: 11-07-2023 DXA-AXIAL SKELETON DXA-AXIAL SKELETON Radiology Routine Asymptomatic postmenopausal status 1 Occurrences starting 10/08/2022 until 11/07/2023 [facility] Work Phone: Comment on above: 1 Occurrences starting 10/08/2022 until 11/07/2023 End: 02-09-2023 EGD DIAGNOSTIC EGD DIAGNOSTIC Endoscopy Routine Epigastric abdominal pain 1 Occurrences starting 02/09/2022 until 02/09/2023 [facility] Work Phone: Comment on above: 1 Occurrences starting 02/09/2022 until 02/09/2023 End: 02-22-2022 EGD DIAGNOSTIC EGD DIAGNOSTIC Endoscopy Routine Epigastric abdominal pain 1 Occurrences starting 02/22/2022 until 02/22/2022 [facility] Work Phone: Comment on above: 1 Occurrences starting 02/22/2022 until 02/22/2022 End: 07-29-2025 EMG(NEURO/NI) EMG(NEURO/NI) EMG Routine Neuropathy 1 Occurrences starting 07/29/2024 until 07/29/2025 [facility] Comment on above: 1 Occurrences starting 07/29/2024 until 07/29/2025 End: 07-31-2025 EMG(NEURO/NI) EMG(NEURO/NI) EMG Routine Neuropathy 1 Occurrences starting 07/31/2024 until 07/31/2025 [facility] Work Phone: Comment on above: 1 Occurrences starting 07/31/2024 until 07/31/2025 End: 12-05-2023 Hemoglobin A1c in Blood HGB A1C Lab Routine Type 2 diabetes mellitus with diabetic neuropathy, without long-term current use of insulin (HCC) Every 4 months for 4 Occurrences starting 12/05/2022 until 12/05/2023, 1 completed [facility] Work Phone: Comment on above: Every 4 months for 4 Occurrences startin g 12/05/2022 until 12/05/2023, 1 completed End: 04-20-2025 Hemoglobin A1c in Blood HEMOGLOBIN A1C Lab Routine Type 2 diabetes mellitus with hyperglycemia, without long-term current use of insulin ([facility]) Encounter for long-term current use of medication Every 3 months for 30 Occurrences starting 04/20/2024 until 04/20/2025 [facility] Work Phone: Comment on above: Every 3 months for 30 Occurrences starti ng 04/20/2024 until 04/20/2025 End: 12-05-2023 Lipid 1996 panel - Serum or Plasma LIPID PANEL BASIC Lab Routine Mixed hyperlipidemia Every 4 months for 4 Occurrences starting 12/05/2022 until 12/05/2023, 1 completed [facility] Work Phone: Comment on above: Every 4 months for 4 Occurrences startin g 12/05/2022 until 12/05/2023, 1 completed End: 04-20-2025 Lipid 1996 panel - Serum or Plasma LIPID PANEL BASIC Lab Routine Mixed hyperlipidemia Encounter for long-term current use of medication Every 3 months for 30 Occurrences starting 04/20/2024 until 04/20/2025 [facility] Comment on above: Every 3 months for 30 Occurrences starti ng 04/20/2024 until 04/20/2025 Liver stiffness by US.transient elastography [facility] End: 01-20-2024 LUNG DIFFUSION CAPACITY (DLCO) LUNG DIFFUSION CAPACITY (DLCO) PFT Routine Stage 2 moderate COPD by GOLD classification ([facility]) 1 Occurrences starting 12/21/2022 until 01/20/2024 [facility] Work Phone: Comment on above: 1 Occurrences starting 12/21/2022 until 01/20/2024 End: 04-20-2025 Magnesium [Mass/volume] in Serum or Plasma MAGNESIUM Lab Routine Encounter for long-term current use of medication Every 3 months for 30 Occurrences starting 04/20/2024 until 04/20/2025 [facility] Comment on above: Every 3 months for 30 Occurrences starti ng 04/20/2024 until 04/20/2025 End: 09-06-2023 JAVIER SCREENING JAVIER SCREENING Radiology Routine Encounter for screening mammogram for breast cancer 1 Occurrences starting 08/07/2022 until 09/06/2023 [facility] Work Phone: Comment on above: 1 Occurrences starting 08/07/2022 until 09/06/2023 MR Lumbar spine [facility] End: 09-06-2023 Mri spinal canal lumbar w/o contrast material MRI LUMBAR SPINE WO [facility] Radiology Routine Acute bilateral low back pain with bilateral sciatica Radiculopathy of lumbar region Spinal stenosis of lumbar region with neurogenic claudication 1 Occurrences starting 08/07/2022 until 09/06/2023 [facility] Work Phone: Comment on above: 1 Occurrences starting 08/07/2022 until 09/06/2023 End: 12-04-2024 NITRIC OXIDE, EXHALED NITRIC OXIDE, EXHALED PFT Routine Asthma with COPD (HCC) 1 Occurrences starting 11/05/2023 until 12/04/2024 [facility] Work Phone: Comment on above: 1 Occurrences starting 11/05/2023 until 12/04/2024 Patient Education [facility] Work Phone: Patient referral [facility] Work Phone: PT PLAN OF CARE CERTIFICATION PT PLAN OF CARE CERTIFICATION Procedures Routine S/P lumbar laminectomy Chronic midline low back pain, unspecified whether sciatica present Spinal stenosis of lumbar region, unspecified whether neurogenic claudication present Gait instability Ordered: 04/10/2022 [facility] Work Phone: Comment on above: Ordered: 04/10/2022 PT PLAN OF CARE CERTIFICATION PT PLAN OF CARE CERTIFICATION Procedures Routine Chronic midline low back pain, unspecified whether sciatica present S/P lumbar laminectomy Gait instability Ordered: 05/08/2022 [facility] Work Phone: Comment on above: Ordered: 05/08/2022 End: 10-08-2023 [facility] Vascular Lab Routine Essential hypertension Pain in both lower extremities Foot pain, bilateral Cigarette smoker Type 2 diabetes mellitus with diabetic neuropathy, without long-term current use of insulin ([facility]) Diminished pulses in lower extremity 1 Occurrences starting 10/08/2022 until 10/08/2023 [facility] Work Phone: Comment on above: 1 Occurrences starting 10/08/2022 until 10/08/2023 End: 07-27-2023 Radiologic exam chest 2 views XR CHEST 2V FRONTAL/LAT Radiology Routine Moderate persistent asthma with acute exacerbation 1 Occurrences starting 06/27/2022 until 07/27/2023 [facility] Work Phone: Comment on above: 1 Occurrences starting 06/27/2022 until 07/27/2023 Radionuclide gastric emptying study [facility] End: 01-20-2024 SPIROMETRY BASELINE ONLY SPIROMETRY BASELINE ONLY PFT Routine Stage 2 moderate COPD by GOLD classification ([facility]) 1 Occurrences starting 12/21/2022 until 01/20/2024 [facility] Work Phone: Comment on above: 1 Occurrences starting 12/21/2022 until 01/20/2024 End: 12-04-2024 SPIROMETRY WITH DILATOR IF OBSTRUCTED SPIROMETRY WITH DILATOR IF OBSTRUCTED PFT Routine Asthma with COPD ([facility]) 1 Occurrences starting 11/05/2023 until 12/04/2024 [facility] Work Phone: Comment on above: 1 Occurrences starting 11/05/2023 until 12/04/2024 SURGICAL PATHOLOGY [facility] Work Phone: Comment on above: Release Upon Ordering for 1 Occurrences starting 02/22/2022 Urinalysis complete panel - Urine URINALYSIS, WITH MICROSCOPIC Lab Routine Lower abdominal pain Recent urinary tract infection 07/05/2022 2:03 PM EDT [facility] Work Phone: End: 08-08-2023 Us pelvic nonobstetric image dcmtn limited/f/u US FEMALE PELVIS TRANSABD LTD Radiology Routine Lower abdominal pain 1 Occurrences starting 07/09/2022 until 08/08/2023 [facility] Work Phone: Comment on above: 1 Occurrences starting 07/09/2022 until 08/08/2023 End: 08-08-2023 Us transvaginal US FEMALE PELVIS TRANSVAG Radiology Routine Lower abdominal pain 1 Occurrences starting 07/09/2022 until 08/08/2023 [facility] Work Phone: Comment on above: 1 Occurrences starting 07/09/2022 until 08/08/2023 End: 04-01-2026 XR Ankle - right AP and Lateral XR ANKLE 2V AP/LAT RIGHT Radiology Routine Acute right ankle pain 1 Occurrences starting 03/02/2025 until 04/01/2026 [facility] Comment on above: 1 Occurrences starting 03/02/2025 until 04/01/2026 XR Ankle - right AP and Lateral XR ANKLE 2V AP/LAT RIGHT Radiology Routine Acute right ankle pain 03/02/2025 4:31 PM EDT [facility] End: 03-19-2025 XR Foot - left AP and Lateral and oblique XR FOOT GENERAL 3V AP/LAT/OBL LEFT Radiology Routine Injury of toe on left foot, initial encounter 1 Occurrences starting 02/18/2024 until 03/19/2025 [facility] Work Phone: Comment on above: 1 Occurrences starting 02/18/2024 until 03/19/2025 XR Foot - left AP an d Lateral and oblique XR FOOT GENERAL 3V AP/LAT/OBL LEFT Radiology Routine Injury of toe on left foot, initial encounter 02/18/2024 3:50 PM EDT [facility] End: 04-01-2026 XR Foot - right AP and Lateral and oblique XR FOOT GENERAL 3V AP/LAT/OBL RIGHT Radiology Routine Toe pain, right 1 Occurrences starting 03/02/2025 until 04/01/2026 [facility] Work Phone: Comment on above: 1 Occurrences starting 03/02/2025 until 04/01/2026 XR Foot - right AP a nd Lateral and oblique XR FOOT GENERAL 3V AP/LAT/OBL RIGHT Radiology Routine Toe pain, right 03/02/2025 4:31 PM EDT [facility] Immunizations Immunization Date Immunization Notes Care Provider [facility] 07-23-2023 pneumococcal Conjuga te, unspecified formulation Willam Estrada MD Work Phone: [facility] Work Phone: 07-23-2023 influenza, injectabl e, quadrivalent, contains preservative Willam Estrada MD Work Phone: [facility] 07-23-2023 influenza, injectabl e, quadrivalent, preservative free Dr. Willam Estrada MD Work Phone: [facility] 07-23-2023 pneumococcal (PCV20) vaccine, 20 valent (PREVNAR 20) Willam Estrada MD Work Phone: [facility] 07-23-2023 influenza virus vaccine, unspecified formulation Willam Estrada MD Work Phone: [facility] 08-20-2022 Covid Shanel Bivale nt Booster Dr. Willam Estrada MD Work Phone: [facility] 08-07-2022 influenza, injectabl e, quadrivalent, contains preservative Mona Corrigan MD Work Phone: [facility] 08-07-2022 influenza, injectabl e, quadrivalent, preservative free Dr. Willam Estrada MD Work Phone: [facility] 08-07-2022 influenza virus vaccine, unspecified formulation Willam Estrada MD Work Phone: [facility] 04-06-2022 Covid (Moderna) Dr. Willam todd MD Work Phone: [facility] 08-04-2021 Covid (Moderna) Dr. Willam todd MD Work Phone: [facility] 08-04-2021 Influenza, injectabl e, Madin Wadley Canine Kidney, preservative free, quadrivalent Willam Estrada MD Work Phone: [facility] 08-04-2021 influenza, seasonal, injectable Willam Estrada MD Work Phone: [facility] Work Phone: 12-15-2020 COVID-19 vaccine, fu ll dose (MODERNA) Willam Estrada MD Work Phone: [facility] 11-16-2020 COVID-19 vaccine, fu ll dose (MODERNA) Willam Estrada MD Work Phone: [facility] 10-13-2019 influenza, injectabl e, quadrivalent, contains preservative Willam Estrada MD Work Phone: [facility] Work Phone: 10-13-2019 influenza, injectabl e, quadrivalent, preservative free Dr. Willam Estrada MD Work Phone: [facility] 10-13-2019 zoster vaccine, recombinant, adjuvanted, (SHINGRIX, PF,) 50 mcg/0.5 mL injection Xr [place] Work Phone: [facility] 05-30-2018 influenza, injectabl e, quadrivalent, contains preservative Willam Estrada MD Work Phone: [facility] 05-30-2018 influenza, injectabl e, quadrivalent, preservative free Dr. Willam Estrada MD Work Phone: [facility] 05-30-2016 influenza, injectabl e, quadrivalent, contains preservative Willam Estrada MD Work Phone: [facility] 05-30-2016 influenza, injectabl e, quadrivalent, preservative free Dr. Willam Estrada MD Work Phone: [facility] 07-22-2015 influenza, injectabl e, quadrivalent, preservative free Dr. Willam Estrada Work Phone: [facility] 07-22-2015 influenza, seasonal, injectable Dr. Willam Estrada Work Phone: [facility] 07-22-2015 influenza, seasonal, injectable, preservative free Willam Estrada MD Work Phone: [facility] 06-14-2014 influenza, injectabl e, quadrivalent, preservative free Dr. Willam Estrada Work Phone: [facility] 06-14-2014 influenza, seasonal, injectable Willam Estrada MD Work Phone: [facility] 06-14-2014 influenza, seasonal, injectable, preservative free Dr. Willam Estrada MD Work Phone: [facility] 06-19-2013 influenza virus vaccine, unspecified formulation Willam Estrada MD Work Phone: [facility] 07-14-2012 influenza virus vaccine, unspecified formulation Willam Estrada MD Work Phone: [facility] 09-09-2010 pneumococcal polysaccharide vaccine, 23 valent Willam Estrada MD Work Phone: [facility] 09-09-[address] Brandy Estrada Work Phone: [facility] Work Phone: 09-09-2010 pneumococcal vaccine , unspecified formulation [facility] 03-22-2010 pneumococcal polysaccharide vaccine, 23 valent Willam Estrada MD Work Phone: [facility] 09-14-2008 tetanus and diphther ia toxoids, not adsorbed, for adult use Willam Estrada MD Work Phone: [facility] 10-11-1998 diphtheria and tetan us toxoids, adsorbed for pediatric use Willam Estrada MD Work Phone: [facility] Work Phone: 10-11-1998 tetanus immune globulin Willam Estrada MD Work Phone: [facility] Work Phone: NEGATED: Highlighted row has not occurred!08-18-2019 influenza, injectable, quadrivalent, preservative free Willam Estrada MD Work Phone: [facility] Comment on above: Deferred: Patient Re fused Payers Date Payer Category Payer Self-pay [id number] 2017 Medicare [id number] 2017 [place] [id number] 2017-Present [phone] [address] [place] [address] Medicaid [id number] 2017 Medicaid [id number] 2017 Medicare MEDICARE MEDICAR E A AND B [id number] 2017-Present [phone] [address] [address] [place] [address] Medicare [id number] 2017 Medicare [id number] [id number] 2017 Medicaid [id number] 2017 Medicare [id number] 2014 Unknown [id number] Unknown [id number] 2.16.840.1.723196.3.579.2.462 Unknown [id number] 2.16.840.1.146788.3.579.2.462 Unknown [id number] 2.16.840.1.656642.3.579.2.462 Unknown [id number] 2.16.840.1.652381.3.579.2.462 Unknown [id number] 2.16.840.1.881652.3.579.2.462 Unknown [id number] 2.16.840.1.930370.3.579.2.462 Unknown [id number] 2.16.840.1.527130.3.579.2.462 Unknown [id number] 2.16.840.1.703920.3.579.2.462 Unknown [id number] 2.16.840.1.090451.3.579.2.462 Unknown [id number] 2.16.840.1.018321.3.579.2.462 Unknown [id number] 2.16.840.1.702167.3.579.2.462 Unknown [id number] 2.16.840.1.906847.3.579.2.462 Unknown [id number] 2.16.840.1.071744.3.579.2.462 Unknown [id number] 2.16.840.1.929870.3.579.2.462 Unknown [id number] 2.16.840.1.301201.3.579.2.462 Unknown [id number] 2.16.840.1.861154.3.579.2.462 Unknown [id number] 2.16.840.1.969188.3.579.2.462 Unknown [id number] 2.16.840.1.907254.3.579.2.462 Unknown [id number] 2.16.840.1.052511.3.579.2.462 Unknown [id number] 2.16.840.1.666265.3.579.2.462 Unknown [id number] 2.16.840.1.040171.3.579.2.462 Unknown [id number] 2.16.840.1.354431.3.579.2.462 Unknown [id number] 2.16.840.1.728088.3.579.2.462 Unknown [id number] 2.16.840.1.374746.3.579.2.462 Unknown [id number] 2.16.840.1.653915.3.579.2.462 Unknown [id number] 2.16.840.1.837894.3.579.2.462 Unknown [id number] 2.16.840.1.191430.3.579.2.462 Unknown [id number] 2.16.840.1.043464.3.579.2.462 Unknown [id number] 2.16.840.1.430265.3.579.2.462 Unknown [id number] 2.16.840.1.950305.3.579.2.462 Social History Date Type Detail Facility Start: 11-10-2021 End: 04-08-2025 Tobacco smoking status ALIS Smokes tobacco daily [facility] History of tobacco use Cigarette Smoker C [facility] Start: 12-04-2021 End: 03-13-2025 Alcohol intake Current non-drinker of alcohol (finding) [facility] Start: 05-15-2020 End: 08-25-2022 History SDOH Alcohol Frequency 1 [facility] Start: 05-15-2020 End: 08-25-2022 History SDOH Social Connections Phone 2 [facility] Start: 05-15-2020 End: 08-25-2022 History SDOH Social Connections Living 5 [facility] Start: 05-15-2020 End: 08-25-2022 History SDOH Physical Activity DPW 0 [facility] Start: 05-15-2020 End: 08-25-2022 History SDOH Stress 4 [facility] Start: 05-15-2020 End: 08-25-2022 History SDOH Financial 3 [facility] Start: 05-14-2020 Education 12 [facility] Start: 1960 Sex Assigned At Not on file [facility] Start: 07-18-2020 End: 08-07-2022 Exposure to SARS-CoV-2 (event) Not sure [facility] Start: 12-14-2021 End: 11-26-2023 Tobacco smoking status ALIS Unknown if ever smoked [facility] Start: 08-21-2021 None [facility] Start: 08-21-2021 Alone [facility] Start: 04-25-2020 Cigarettes [facility] Start: 1960 Sex Assigned At Female [facility] Start: 03-30-2022 End: 04-09-2022 Exposure to SARS-CoV-2 (event) Unable to assess [facility] Work Phone: Start: 11-10-2021 End: 01-24-2023 Cigarettes smoked current (pack per day) - Reported 1 [facility] Start: 11-10-2021 End: 05-07-2024 Tobacco use and exposure Smokeless tobacco non-user [facility] Start: 08-07-2022 Tobacco Comment Working on smoking cessation [facility] Start: 10-08-2022 Tobacco Comment Working on smoking cessation. Trying every day to quit but not happening yet. [facility] Start: 08-25-2022 End: 01-24-2023 Social connection and isolation panel [facility] Do you belong to any clubs or organizations such as religious groups, unions, fraternal or athletic groups, or school groups? No [facility] Are you now , , , , never or living with a partner? [facility] How often to you hav e a drink containing alcohol? Never [facility] How many standard dr inks containing alcohol do you have on a typical day? Patient does not drink [facility] Do you feel stress - tense, restless, nervous, or anxious, or unable to sleep at night because your mind is troubled all the time - these days [OSQ] Not at all [facility] (I/We) worried wheth er (my/our) food would run out before (I/we) got money to buy more. Never true [facility] Start: 04-03-2023 Tobacco Comment Working on smoking cessation. Trying every day to quit but not happening yet. Still working--1PPD (April 03, 2023) [facility] Start: 02-06-2022 Gender identity Identifies as female gender (finding) [facility] Start: 02-06-2022 Sexual orientation Heterosexual (finding) [facility] How hard is it for y ou to pay for the very basics like food, housing, medical care, and heating Somewhat hard [facility] Do you feel stress - tense, restless, nervous, or anxious, or unable to sleep at night because your mind is troubled all the time - these days [OSQ] Rather much [facility] (I/We) worried wheth er (my/our) food would run out before (I/we) got money to buy more. Sometimes true [facility] Start: 04-20-2024 Tobacco Comment Working on smoking cessation. Trying every day to quit and down to 8-9 cigarettes daily and quit smoking in the house [facility] Start: 07-30-2017 Tobacco Comment 1 ppd [facility] Start: 11-25-2024 End: 12-24-2024 Sex Female (finding) [facility] Medical Equipment Procedure Code Equipment Code Equipment Original Text Equipment Identifier Dates [id number], [id number], [id number], [id number], [id number], [id number], [id number] Start: 06-23-2019 End: 11-18-2024 Comment on above: Test blood sugars tw ice a day DX: E11.65 Insulin: No Use as instructed Test blood sugar(s) 2 times daily. Dx: Type 2 DM - Uncontrolled E11.65 Insulin: No Goals Date Patient Goal Desired [...] original. Last admission/ED visit : ED visit [place]: 05/08/24 Formatting of this n ote might [...] Assessment Result Facility 08-05-2024 Functional status Ambulates [facility] Work Phone: 04-30-2020 Are you deaf, or do you have serious difficulty hearing No 04/30/2020 1:42 PM Sabino Crawford RN No [facility] 04-30-2020 Are you blind, or do you have serious difficulty seeing, even when wearing glasses No 04/30/2020 1:42 PM Sabino Crawford RN No [facility] 04-30-2020 Do you have serious difficulty walking or climbing stairs No 04/30/2020 1:42 PM Sabino Crawford RN No [facility] 04-30-2020 Do you have difficul ty dressing or bathing No 04/30/2020 1:42 PM Sabino Crawford, KELSEY No [facility] 04-30-2020 Because of a physica l, mental, or emotional condition, do you have difficulty doing errands alone such as visiting a physician's office or shopping No 04/30/2020 1:42 PM Sabino Crawford RN No [facility] Mental Status Date Assessment Result Facility 08-09-2024 Cognitive function Level Of Cons ciousness Awake;Alert;Appropriate;Fol lows Commands [facility] Work Phone: 08-05-2024 Cognitive function Voice/Name [facility] Work Phone: 11-28-2023 Cognitive function Voice/Name [facility] Work Phone: 09-20-2023 Cognitive function Level Of Cons ciousness Awake;Alert;Appropriate;Fol lows Commands [facility] Work Phone: 07-01-2023 Cognitive function Touch/Shaking [facility] Work Phone: 06-27-2023 Cognitive function Level Of Cons ciousness Awake;Alert;Appropriate;Fol lows Commands [facility] Work Phone: 08-24-2022 Cognitive function Level Of Cons ciousness Awake;Alert;Appropriate;Fol lows Commands [facility] Work Phone: 04-30-2020 Because of a physica l, mental, or emotional condition, do you have serious difficulty concentrating, remembering, or making decisions No 04/30/2020 1:42 PM EDT Sabino Somers RN No [facility] Clinical Notes 04-27-2020 to 03-15-2025 Telephone Encounter - Gillian Higginbotham RN - 03/15/2025 4:19 PM EDTTelephone Encounter - Gillian Higginbotham RN - 03/15/2025 4:19 PM EDT Note Date & Type Note Facility 03-15-2025 Telephone encounter Note Form atting of this note might be different from the original. Kia with [facility] calls to report that they are recommending patient be on a statin for cholesterol. Requesting to discuss at next OV. Added note to next appt. Nothing further needed at this time. Closing TE. Gillian Higginbotham RN [facility] 03-15-2025 Miscellaneous Notes Formattin g of this note might be different from the original. Kia with [employer] [facility] calls to report that they are recommending patient be on a statin for cholesterol. Requesting to discuss at next OV. Added note to next appt. Nothing further needed at this time. Closing TE. Gillian Higginbotham RN documented in this encounter [facility] 03-13-2025 Discharge summary [facility] 03-13-2025 Radiology Diagnostic study note [facility] Imaging Services [address] [place] [address] Chest PA and Lateral MR#: [id number] Acct: [id number] Name: GARLAND DE SANTIAGO Rep #: [id number] 1 : 1960 F 64 From: Karlee Souza MD PCP: Dr. Willam Estrada MD Status: RE G ER Study:Chest PA and Lateral Date of Exam: 03/13/25 Exam# [id number] Ordering Dr: Becky Barnard MD EXAM: XR Chest, 2 Views CLINICAL INDICATION: COUGH AND DYSPNEA TECHNIQUE: Frontal and lateral views of the chest. COMPARISON: No relevant prior studies available. FINDINGS: LUNGS AND PLEURAL SPACES: Unremarkable. No consolidation. No pneumothorax. HEART: Unremarkable. No cardiomegaly. MEDIASTINUM: Unremarkable. Normal mediastinal contour. BONES/JOINTS: Unremarkable. No acute fracture. RAD/Chest PA and Lateral IMPRESSION: No acute cardiopulmonary process. Reading Location: [facility] ER CC: Dr. Adan Barnard MD; Dr. Willam Estrada MD ~ [place] Set Up Operator: Signed [facility] 03-13-2025 Discharge summary Note Date/Time March 13, 2025 3:48pm [facility] Medical Records Department [address] [place] [address] Emergency Department Summary 03/13/25 MR#: [id number] Acct: [id number] Name: GARLAND DE SANTIAGO Rep #:[id number] : 1960 64 From: Adan Barnard MD PCP: Dr. Willam Estrada MD Status:RE G ER Location: ED HPI History of Present Illness Chief Complaint: Shortness of Breath Informant: patient Onset/Context/Timing Onset: Days Context: gradual Timing: Continuous Quality: Positive for Wheezing Current Severity: Mild Maximum Severity: Mild Worsened by: Nothing Relieved by: Nothing Associated Symptoms cough Chest Pain: Positive for Sharp Narrative Narrative: 64-year-old female history diabetes COPD. Says since Saturday she has had sinus congestion and drainage is white and then yesterday developed shortness of breath and a productive cough of white sputum. Atypical chest discomfort she describes as pressure and at times sharp. She is question if she has an infection. She denies vomiting. She has intermittent chronic diarrhea. She denies any known fever. No hemoptysis. No history of DVT or PE. No leg pain or swelling. No recent immobilization. PE Risk Factors: Negative for Cancer, OCP + Smoking + > 35, Prior DVT or PE, Recent immobilization, Recent surgery or Recent travel Prior similar symptoms: No Recent Illness/Hospitalization: No PFSH PFSH Medical History Nonalcoholic fatty liver disease Gastroparesis Hemorrhoid Constipation CA19-9 above reference range Exocrine pancreatic insufficiency Elevated lipase Elevated C-reactive protein (CRP) Heartburn Morbid obesity Asthma Tobacco user Benign essential hypertension Family history of aneurysm Wears partial dentures Wears dentures Anxiety Diabetes Bladder disease Dietary restriction History of hiatal hernia Gastric reflux BiPAP (biphasic positive airway pressure) dependence Sleep apnea Smoker Hypertension Cardiology follow-up encounter History of stress test History of echocardiogram Elevated CPK Fatty liver Abdominal pain Diarrhea Hemorrhage of gastrointestinal tract Depression Arthritis Mixed hyperlipidemia Type 2 diabetes mellitus COPD (chronic obstructive pulmonary disease) YARY treated with BiPAP Postoperative anemia Osteoarthritis Anxiety and depression Home Medications ?Medication ?Instructions ?Recorded ?Last Taken ?Type gemfibrozil 600 mg tablet 600 mg PO BID Cholestrol 01/2011/26/23 History trazodone 100 mg tablet 100 mg PO QHS Mood 06/13/14 11/26/23 History alprazolam 0.5 mg tablet 0.5 mg PO QHS ANXIETY 11/27/23 History buspirone 5 mg tablet 7.5 mg PO BID Mood 07/11/18 03/20/24 History metformin 500 mg tablet,extended 500 mg PO BID Diabete s 07/11/18 11/26/23 History release 24 hr potassium chloride 10 mEq 10 meq PO DAILY Supplement 1 09/10/17 11/26/23 History tablet,extended release(part/cryst) sertraline 100 mg tablet (Zoloft) 200 mg PO QHS mental health 07/11/18 11/27/23 History ipratropium bromide 0.02 % 2.5 ml inhalation Q6H PRN 1 10/22/20 Unknown Rx solution for inhalation shortness of breath or wheez ing #75 mL albuterol sulfate 2.5 mg/3 mL 2.5 mg inhalation Q4H ND N 11/15/21 11/26/23 History (0.083 %) solution for nebulization shortness of breat h cetirizine 10 mg tablet 10 mg PO DAILY PRN ALLERGIES 11/15/21 Unknown History gabapentin 300 mg capsule 600 mg PO .COMPLEX neuropath y 11/15/21 11/26/23 History (Neurontin) ibuprofen 600 mg tablet 600 mg PO Q12H PRN pain 05/31 Unknown History glipizide 5 mg tablet 5 mg PO DAILY Diabetes 11/2511/26/23 History pantoprazole 20 mg tablet,delayed 20 mg PO BID GERD #6 0 TABLETS 02/10/24 Unknown Rx release carvedilol 25 mg tablet 25 mg PO BID #60 tabs Unknown Rx lisinopril 20 mg tablet 20 mg PO BID bp 10/16/24 Unk nown History albuterol sulfate 90 mcg/actuation 1 - 2 puff inhalati on Q4H PRN PRN 11/16/24 Unknown Rx aerosol inhaler (Ventolin HFA) Wheezing ##1 Allergy/AdvReac Type Severity Reaction Status Date / Time Cephalosporins Allergy Intermediate Rash Verified 03/13/25 13:13 hydromorphone (From Dilaudid) Allergy Intermediate Altered Verified 03/13/25 13:13 mental status pseudoephedrine Allergy Intermediate Tachycardia Verified 03/13/25 13:13 egg (eggs) Allergy Mild Diarrhea Verified 03/13/25 13:13 fluoxetine (From Prozac) Allergy Chest Verified 03/13/25 13:13 tightness house dust mite Allergy NEEDS Verified 03/13/25 13:13 FOLLOW-UP hydrocodone (From Vicodin) Allergy Upset Verified 03/13/25 13:13 Stomach Penicillins Allergy Hives Verified 03/13/25 13:13 prednisone AdvReac PT UNABLE Verified 03/13/25 13:13 TO RESPOND-NEEDS F/U Family History Mother Glaucoma Cervical cancer Asthma Father , at 77 Myocardial infarction Cancer Lung, metastatic to bone CAD (coronary artery disease) History of coronary artery bypass surgery Aortic aneurysm and dissection Sister Colon polyp Thyroid disorder Lung cancer Surgical History History of lumbar laminectomy History of bladder suspension procedure Hx of cholecystectomy History of total right knee replacement Hx of tonsillectomy H/O vaginal hysterectomy Tubal ligation status History of back surgery History of appendectomy S/P total knee arthroplasty Social History household members: none housing: apartment Smoking Status: Current every day smoker tobacco type: cigarettes alcohol intake: never substance use type: does not use caffeine: Yes Type: carbonated beverages Number of servings: 2 ROS ROS ED ROS Narrative Cough. Sinus drainage. Shortness of breath. Wheezing. Constitutional Constitutional ED: Denies chills or fever(s) Eyes Eyes: Denies blurry vision ENT ENT ED: Denies ear pain Cardiovascular Cardiovascular: Reports chest pain Respiratory/Chest Respiratory/Chest: Reports cough and dyspnea Gastrointestinal Gastrointestinal: Denies abdominal pain, melena, nausea or vomiting Genitourinary Genitourinary ED: Denies dysuria or hematuria Musculoskeletal Musculoskeletal: Denies arthralgias Integumentary Denies abscess Neurologic Neurologic: Denies headache(s) Psychiatric Psychiatric: Denies anxiety or depression Endocrine Endocrinology: Denies cold intolerance Hematologic/Lymphatic Hematologic/Lymphatic: Denies easy bleeding, easy bruising or lymphadenopathy Allergic/Immunologic Allergic/Immunologic ED: Denies mouth swelling, tongue swelling or urticaria EXAM Physical Exam Narrative Exam Narrative: Well-appearing 64-year-old female vital signs stable afebrile. Pulse ox 98% on room air no hypoxia. No distress. H EENT exam pupils round react to light. Moist mucous membranes. Sinuses nontender. Neck nontender lymphadenopathy. Lungs scattered expiratory wheezes. No rales or rhonchi. Equal symmetrical. Heart regular rhythm no murmur. Abdomen soft nontender. Moving all 4 extremities. Nontender. No cords no edema. Normal strength. Neurologically she is awake alert. Answer questions following commands. Const Vital Signs: 03/13/25 13:13 03/13/25 13:16 03/13/25 13:16 Temperature 98.4 F Temperature Source Oral Pulse Rate 77 Respiratory Rate 16 22 H Respiratory Effort Blood Pressure 145/84 H Blood Pressure Mean 104 Pulse Ox 98 98 Oxygen Delivery Method Room Air Room Air Room Air 03/13/25 13:25 03/13/25 13:46 03/13/25 14:33 Temperature 98.3 F Temperature Source Oral Pulse Rate 74 70 Respiratory Rate 15 16 Respiratory Effort Short of Breath Labored Blood Pressure 134/78 H Blood Pressure Mean 96 Pulse Ox 99 Oxygen Delivery Method Room Air Room Air 03/13/25 15:32 Temperature 98.6 F Temperature Source Oral Pulse Rate 74 Respiratory Rate 18 Respiratory Effort Blood Pressure 142/90 H Blood Pressure Mean 107 Pulse Ox 96 Oxygen Delivery Method Room Air Positive well nourished and well developed; Negative for cachectic, contracturesor unkempt General Appearance ED: well developed and NAD; Negative for unkempt, cachectic, contractures or pallor Nutritional Appearance: Negative for cachectic HEENT Reports moist mucous membranes atraumatic Eyes EOMs intact bilaterally Neck no lymphadenopathy, supple, no meningeal signs and no JVD Resp normal respiratory effort and No clear to auscultation bilaterally Auscultation: wheezes Cardio regular rate, regular rhythm, S1 normal heart sound, S2 normal heart sound and no murmurs GI non-tender, non-distended and no masses Palpation: soft; Negative for tender or guarding Back/Spine no CVA tenderness and normal to inspection Extremity normal to inspection Neuro oriented x3 and CN's II-XII intact bilaterally Sensorium / Orientation: alert, oriented to person, oriented to place and oriented to time; Negative for orientation impaired, confused or lethargic Speech: speech normal Psych mental status grossly normal Appearance: Negative for unkempt Attitude: No agitated Mood & Affect: Negative for depressed Thought Process: normal thought process Skin no wounds and skin turgor normal General Skin Exam: Negative for jaundice or pallor Lesions: no lesions Rashes: no rashes MDM MDM MDM Narrative Medical decision making narrative: 64-year-old female wheezing suspect URI most likely viral. Exacerbation of COPD. I do not think this is cardiac. I think is unlikely she has pneumonia. Chest x-ray and labs will be obtained. It is atypical chest pain does not soundcardiac I will check 1 troponin. Repeat exam at 4:20 PM patient doing much better. Wheezing resolved after the aerosol treatments. She was offered but did not want to take the prednisone because she said it gives her other side effects that she does not like. Currently she is no longer wheezing. We discussed her test results and chest x-ray. I think is a viral URI with COPD exacerbation. She does not want to take steroids at home. She will use her nebulizer at home and her inhaler and follow-up with her doctor if not improving. History & Record Review Discussion w/independent historian: Patient Additional record(s) reviewed:: Prior inpatient record, Prior outpatient record,Prior ED visit and Prior labs Lab Data Attestation: I reviewed the patient's lab results. Lab results narrative: CBC shows a white count 7 H&H 13 and 38. Platelets 300. Electrolytes unremarkable gap 14. BUN and creatinine are 13 and 0.5. Glucose 159. Troponin is 18. Labs: Laboratory Results - last 24 hr 03/13/25 13:20 WBC 7.7 RBC 4.72 Hgb 13.4 Hct 38.8 MCV 82.2 MCH 28.4 MCHC 34.5 RDW Std Deviation 40.2 RDW Coeff of Rodrigo 13.4 Plt Count 300 MPV 9.9 Immature Gran % (Auto) 0.100 Neut % (Auto) 47.2 Lymph % (Auto) 43.2 H [place] % (Auto) 6.4 Eos % (Auto) 2.3 Baso % (Auto) 0.8 Absolute Neuts (auto) 3.6 Absolute Lymphs (auto) 3.33 Nucleated RBC % 0 Sodium 140 Potassium 4.1 Chloride 104 Carbon Dioxide 21.8 Anion Gap 14 BUN 13 Creatinine 0.56 L Estim Creat Clear Calc 112.53 Est GFR (MDRD) Non-Af 102 BUN/Creatinine Ratio 22.6 H Glucose 159 H Calcium 9.1 Troponin T High Sens 18 H Radiography Chest X-Ray - ED: 2 View, Read by ED Physician, Read by Radiologist, Normal, Heart, Lungs, Mediastinum, Bony Structures, No Acute Disease and Chronic Changes Diagnostic Testing: Clinical Impression(s) from Imaging Studies Chest X-Ray 03/13/25 15:15 IMPRESSION: No acute cardiopulmonary process. Reading Location: [facility] Chest x-ray, 2 views, AP and lateral, interpreted by myself and radiologist shows no acute abnormality. Normal cardiac silhouette. Normal lung hemphill. Rhythm Strip Rhythm Strip: Sinus Rhythm Rate: 69 Ectopy: None EKG Initial EKG: Attestation: I personally reviewed and interpreted this EKG as follows: Interpretation: Sinus Rhythm and No Acute Injury Pattern Comments: NSR rate of 69 no acute signs of UT or ischemia. Discharge Plan Triage Chief Complaint: Shortness of Breath ED Provider: Adan Barnard Dx/Rx/DC Orders Clinical Impression: SOB (shortness of breath), Viral URI, COPD exacerbation, History of diabetes mellitus Instructions: ED COPD Flare, ED URI, Viral, No Abx (Adult) Prescriptions: No Action albuterol sulfate 2.5 mg /3 mL (0.083 %) solution for nebulization 2.5 mg inhalation Q4H PRN (Reason: shortness of breath) ibuprofen 600 mg tablet 600 mg PO Q12H PRN (Reason: pain) cetirizine 10 mg tablet 10 mg PO DAILY PRN (Reason: ALLERGIES) lisinopril 20 mg tablet 20 mg PO BID albuterol sulfate [Ventolin HFA] 90 mcg/actuation HFA aerosol inhaler 1 - 2 puff inhalation Q4H PRN PRN (Reason: Wheezing) Qty: 1 0RF trazodone 100 MG tablet 100 mg PO QHS Patient Comments: Mood/anti-anxiety gemfibrozil 600 MG tablet 600 mg PO BID Patient Comments: Cholesterol alprazolam 0.5 MG tablet 0.5 mg PO QHS buspirone 5 MG tablet 7.5 mg PO BID Patient Comments: anti-anxiety sertraline [Zoloft] 100 MG tablet 200 mg PO QHS metformin 500 MG tablet 500 mg PO BID potassium chloride 10 MEQ tablet 10 meq PO DAILY gabapentin [Neurontin] 300 mg capsule 600 mg PO .COMPLEX Rx Instructions: 600 mg PO take 2 caps in the am and 2 caps in the evening; ipratropium bromide 0.02 % solution 2.5 ml inhalation Q6H PRN (Reason: shortness of breath or wheezing) Qty: 75 2RF glipizide 5 mg tablet 5 mg PO DAILY Patient Comments: 1 TAB DAILY, IF BG OVER 200 1.5 TABS pantoprazole 20 mg tablet,delayed release (DR/EC) 20 mg PO BID Qty: 60 5RF carvedilol 25 mg tablet 25 mg PO BID Qty: 60 11RF Rx Instructions: must administer with a meal/food Primary Care Provider: Willam Estrada Referrals: Willam sEtrada MD [Primary Care Provider] - 3-5 Days if not improving Activity Restrictions/Additional Instructions: Use your inhaler or nebulizer. There are no signs of pneumonia you do not need an antibiotic Follow-up with your doctor if not improving if not improving you might want to strongly consider using prednisone the steroid. Print Language: Divehi Disposition Disposition: Home, Self Care What to do if you have Problems For any increased pain, shortness of breath, bleeding, nausea or vomiting, chestpain, or any unexpected problems, contact your Primary Care Provider. Call [facility] ([phone]) or report to the closest Emergency Room. Call 911 if necessary. 03/13/25 [id number] <Electronically signed by Adan Barnard MD> Cosigner Signature (if applicable): CC: Dr. Willam Estrada MD ~ Signed [facility] Work Phone: 1(442) 336-949607-05-2025 [facility] History of Present illness Narrative* Rufus Ohara PA-C - 03/13/2025 1:06 PM EDT Patient is a 64-year-old female who complains of wheezing, dyspnea, shortness of breath and chest tightness that she has been experiencing for the past several days. Patient also reports dizziness and explains that she did experience a syncopal episode 2 days ago at which time she did strike her head and right forearm. Patient does have a history of asthma and COPD and continues to smoke cigarettes. Patient has a nearly [id number] history of tobacco use. Patient states that she is using her albuterol nebulizer with no improvement in her symptoms. Patient was immediately advised that she requires evaluation in an emergency department where laboratory testing, EKG, chest x-ray, respiratory t herapy and other interventions are available. Patient verbalizes clear understanding of this recommendation and states she will report to the emergency department at [facility] after departing [facility]. Patient declines EMS transport. documented in [facility]Det[facility] Telephone encounter Note * Telephone Encounter - Derick Goddard LPN - 03/08/2025 3:57 PM EDT Prescription Refill Information The patient [...] Goddard LPN March 08, 2025 3:57 PM [facility]06-30[facility] Miscellaneous Notes* Telephone Encounter - Derick Goddard LPN - 03/08/2025 3:57 PM EDT Prescription Refill Information The patient [...] 08, 2025 3:57 PM documented in this encounterDetwiler [facility]06-24-2025 History of Present illness Narrative* Balbina Shin, RT(R) - 03/02/2025 4:10 PM EDT Radiology Service Progress Note PATIENT [...] Assigned female at . status: : No status:NO. PATIENT RELEVANT IMPLANT DATA REVIEWED: Yes PATIENT PRESENTS WITH AN IMPLANTABLE OR ATTACHED FUR GLAZER: No RADIOLOGY DEPARTMENT: General X-ray: Exam(s) Completed: Lower Extremity X- Ray(s): Ankle, Right and Foot, Right PERIPHERAL IV DATA: Not applicable SIGNED BY: RT Davon(R) March 02, 2025 4:18 PM documented in this encounterDetwiler [facility]06-24-2025 [facility] History of Present illness Narrative* Jonnathan Mckeon, - 03/02/2025 3:25 PM EDT Images from the original note were not included. [facility] [place] DEPARTMENT OF VASCULAR SURGERY OUTPATIENT VISIT DATE March 02, 2025 OUTPATIENT VISIT TYPE CONSULTATION SERVICE DATE: 03/02/2025 SERVICE TIME: 3:25 PM PRIMARY CARE PHYSICIAN: Willam Estrada MD REFERRING PROVIDER: Leila Rubi [address] [facility] [id number] Consult requested for an opinion regarding the [...] to requesting physician via US mail. Ms. Anyi is a 64 year old female who [...] rhinitis, cause unspecified 02/10/2007 Anxiety Arthritis Asthma ([facility]) 02/10/2007 Depression Psychiatrist managing (Dr. Bedolla) DM type 2 (diabetes mellitus, type 2) ([facility]) Essential hypertension 05/23/2006 Hemorrhage of gastrointestinal [...] 12/13/2011 Colonoscopy repeat 10 years EGD W/O [facility] SPEC VARICIES INJ 02/22/2022 ESOPHAGOGASTRODUODENOSCOPY TRANSORAL DIAGNOSTIC 02/09/2016 EGD INCISE FINGER TENDON SHEATH Right 08/10/2021 Right ring trigger finger release JOINT REPLACEMENT HX LAPS ABD PRTM&OMENTUM DX W/WO SPEC BR/WA SPX Laparoscopy LAPS SURG CHOLECYSTECTOMY W/CHOLANGIOGRAPHY 10/07/2006 LIG/TRNSXJ FLP TUBE ABDL/VAG APPR UNI/BI Tubal ligation PAST SURGICAL HISTORY OF 06/22/2010 right knee arthroscopy- by Dr Dawson ([facility]) PAST SURGICAL HISTORY OF 04/27/2020 low back surgery at [facility];s/p L4 laminectomy, decompression of L4-5 canal [...] Cervical Cancer Mother Asthma Mother Heart Father [place] x 2 Cancer Father Lung, metastatic to [...] Puffs as instructed every 4 hours asneeded. carvedilol (COREG) 25 mg tablet Take 25 [...] without contrast- no significant aneurysm CT from [facility]- no evidence of AAA Echo- normal aorta noted PVRs 2022- normal IMPRESSION: Ms. De Santiago is a 64 year old female with possible aortic ectasia . PLAN and RECOMMENDATIONS: Continue Medical Management Will follow up next year= she will message after CT chest performed No acute intervention required at this time SIGNATURE: Jonnathan Mckeon DO PATIENT NAME: Garland De Santiago DATE: March 02, 2025 TIME: 3:25 PM documented in this encounterDetwiler [facility]06-21-2025 Telephone encounter Note * Telephone Encounter - Frieda Blake MA - 02/27/2025 9:17 AM EDT Patient given results and verbalized understanding of instructions given. Frieda lBake MA [facility]06-21-2025 Miscellaneous Notes* Telephone Encounter - Frieda Blake MA - 02/27/2025 9:17 AM EDT Patient given results and verbalized understanding of instructions given. Frieda Blake MA * Telephone Encounter - Frieda Blake MA - 02/27/2025 8:36 AM EDT Left message for patient to return call. Frieda Blake MA * Telephone Encounter - Amanda Crow APRN.CNP - 02/27/2025 8:05 AM EDT Please call and let patient know that the urine culture did not grow any bacteria. If symptoms are persistent please follow-up with primary care documented in this encounterDetwiler [facility]06-21-2025 Telephone encounter Note * Telephone Encounter - Frieda Blake MA - 02/27/2025 8:36 AM EDT Left message for patient to return call. Frieda Blake MA [facility]06-21-20[facility] Telephone encounter Note* Telephone Encounter - Amanda Crow APRN.CNP - 02/27/2025 8:05 AM EDT Please call and let patient know that the urine culture did not grow any bacteria. If symptoms are persistent please follow-up with primary care [facility] Work Phone: 1(284) 185-383206-19-2025 Instructions* Patient Instructions* Martha Diop APRN.CNP - 02/25/2025 3:16 PM EDT 1. Urinary [...] need to start antibiotics. documented in this encounterDetwiler [facility] Hospital06-19-2025 [facility]06-19-2025 History of Present illness Narrative* Martha Diop APRN.[facility] - 02/25/2025 3:15 PM EDT [facility] Subjective Garland De Santiago is a 64 [...] rhinitis, cause unspecified 02/10/2007 Anxiety Arthritis Asthma ([facility]) 02/10/2007 Depression Psychiatrist managing (Dr. Bedolla) DM type 2 (diabetes mellitus, type 2) ([facility]) Essential hypertension 05/23/2006 Hemorrhage of gastrointestinal [...] 12/13/2011 Colonoscopy repeat 10 years EGD W/O [facility] SPEC VARICIES INJ 02/22/2022 ESOPHAGOGASTRODUODENOSCOPY TRANSORAL DIAGNOSTIC 02/09/2016 EGD INCISE FINGER TENDON SHEATH Right 08/10/2021 Right ring trigger finger release JOINT REPLACEMENT HX LAPS ABD PRTM&OMENTUM DX W/WO SPEC BR/WA SPX Laparoscopy LAPS SURG CHOLECYSTECTOMY W/CHOLANGIOGRAPHY 10/07/2006 LIG/TRNSXJ FLP TUBE ABDL/VAG APPR UNI/BI Tubal ligation PAST SURGICAL HISTORY OF 06/22/2010 right knee arthroscopy- by Dr Dawson ([facility]) PAST SURGICAL HISTORY OF 04/27/2020 low back surgery at [facility];s/p L4 laminectomy, decompression of L4-5 canal [...] Puffs as instructed every 4 hours asneeded. carvedilol (COREG) 25 mg tablet Take 25 [...] Cervical Cancer Mother Asthma Mother Heart Father [place] x 2 Cancer Father Lung, metastatic to [...] is no right CVA tenderness, left CVA tendernessor guarding. Skin: General: Skin is warm and [...] severity, unspecified whether complicated, unspecified whether persistent ([facility]) (J45.909) - Mild wheezing noted on auscultation. [...] Discussed expected course of illness Martha Diop APRN.UNDER CUTTING MACHINE OPERATOR and Recording using myBarrister software for draft documentation of the visit was discussed with thepatient/authorized patient account representative; all questions welcomed and answered. Patient/authorized patient account representative agreed to proceed Disposition The patient was discharged. Procedures documented in this encounterDetwiler [facility] Hospital05-06-2025 [facility]05-06-2025 History of Present illness Narrative* Rufus Ohara PA-C - 01/12/2025 1:55 PM EDT This note was created using [employer]. Subjective Garland De Santiago is a 64 [...] cannot tolerate that medication. Patient was recently prescribedAdvair by Dr. Corrigan and she states that she will continue to use that until her appointment next week. Supportive care was discussed and the patient was advised to report to an emergency department if she notes any acute worsening of her symptoms. Patient was advised that we will contact her if anygrowth is noted on the urine culture and [...] problems: low Diagnostic procedures: low Management options: fallon Ohara PA-C documented in this encounterDetwiler [facility] Hospital04-17-2025 Evaluation note* Diagnosis Onset Date Resolution Status Admit Date Cervical myelopathy acute December 24, 2024 2:06pm Degenerative disc disease, lumbar acute December 24, 2024 2:06pm Lumbar stenosis with neuroge olga claudication acute December 24, 2024 2:06pm Cervical myelopathy acute January 082024 3:31pm Degenerative disc disease, lumbar acute February 04, 2025 3 :31pm Lumbar stenosis with neuroge olga claudication acute February 04, 2025 3 :31pm [facility] Work Phone: 1(368) 644-168404-04-2025 [facility]04-04-2025 History of Present illness Narrative* Naila Lanier RN - 12/11/2024 1:57 PM EDT CDM ENROLLMENT Provider Action / FYI: Patient identified by name and date of . Discussed care with patient. Provided H@H number, educated on resources. Program Details Chronic Disease Management Status: Declined Patient Declined - Initial Effective Dates: unknown - 12/11/2024 Responsible Staff: Naila Lanier, RN Support and Services: None active Assessments No documentation this encounter Interventions No episode Naila Lanier RN December 11, 2024 2:09 PM documented in this encounterDetwiler [facility] Hospital04-02-2025 [facility]04-02-2025 History of Present illness Narrative* Madonna Martinez - 12/09/2024 9:01 AM EDT POPULATION HEALTH NAVIGATION OUTREACH Action/FYI ACO High Risk - attempt 2 Pt due for: Medicare AWV LM; sent mychart message Reason for Outreach Care Gap/HCC or Scheduling Wellness Visits Care Gaps due: Medicare Annual Wellness Visit Patient Contacted: Unable or unnecessary to reach patient: Left message MyChart message sent Navigation Signature: Madonna Martinez December 09, 2024 9:02 AM documented in this encounterDetwiler [facility] Hospital03-28-2025 [facility]03-28-2025 History of Present illness Narrative* Madonna Martinez - 12/04/2024 7:10 AM EDT POPULATION HEALTH NAVIGATION OUTREACH Action/FYI ACO High [...] 04, 2024 7:10 AM documented in this encounterDetwiler [facility] Hospital03-24-2025 Telephone encounter Note * Telephone Encounter - Keshia Briseno LPN - 11/30/2024 12:53 PM EDT Prescription Refill Information The patient [...] Briseno LPN November 30, 2024 12:53 PM [facility]03-24-2025 Miscellaneous Notes* Telephone Encounter - Keshia Briseno LPN - 11/30/2024 12:53 PM EDT Prescription Refill Information The patient [...] 30, 2024 12:53 PM documented in this encounterDetwiler [facility] Hospital03-20-2025 Telephone encounter Note * Telephone Encounter - Ann Garcia LPN - 11/26/2024 8:39 AM EDT Fax rec'd from [employer] for DME supplies for true metrix glucose testing strips. This was completedand faxed back recent office notes as requested. [facility]03-20-2025 Miscellaneous Notes* Telephone Encounter - Ann Garcia LPN - 11/26/2024 8:39 AM EDT Fax rec'd from [employer] for DME supplies for true metrix glucose testing strips. This was completedand faxed back recent office notes as requested. documented in this encounterDetwiler [facility] Hospital03-19-2025 [facility]03-19-2025 History of Present illness Narrative* Leila Rubi PA-C - 11/25/2024 1:03 PM EDT Patient: Garland De Santiago PCP: [...] DM type 2 (diabetes mellitus, type 2) ([facility]) Essential hypertension 05/23/2006 Hemorrhage of gastrointestinal [...] Puffs as instructed every 4 hours asneeded. carvedilol (COREG) 25 mg tablet Take 25 [...] Cervical Cancer Mother Asthma Mother Heart Father [place] x 2 Cancer Father Lung, metastatic to [...] 06/22/2010 right knee arthroscopy- by Dr Dawson ([facility]) PAST SURGICAL HISTORY OF 04/27/2020 low back surgery at [facility];s/p L4 laminectomy, decompression of L4-5 canal [...] Collected: 11/11/2023 10:52 AM (Final result) Narrative: [facility] [address] [place] [address] Test Date: 2023-11-11 Pat Name: GARLAND DE SANTIAGO Department: Room: Gender: Female Wool Shearer: : 1960 Requested By: Order Number: [id number] Reading MD: Mona Corrigan MD Interpretive Statements Current ATS/ERS acceptability and repeatability standards for spirometry met. Start of test and EOFE criteria met. Medications and Allergies were reviewed for possible drug interactions per policy. No contraindications or sensitivities were noted. Meds taken: Albuterol 15 minutes before testing. IMPRESSION: Spirometry is normal. Electronically Signed On 11-11-2023 16:27:40 EST by Mona Corrigan MD ID: [id number] Name: GARLAND DE SANTIAGO Race: White Ht: [...] 5.05 FEF50/FIF50 0.40 90-100 FIVC (L) 2.82 GOG47-72 (L/sec) 1.13 1.07 2.16 3.66 52 Time [...] necessary. Leila Rubi PA-C documented in this encounterDetwiler [facility] Hospital03-18-2025 Instructions* Patient Instructions* Indigo Nichols PA-C - 11/24/2024 2:06 PM EDT Qutenza or other patches for pain. If the pain gets worse, let me know. We can either go up on the gabapentin or start a new medication called lyrica Follow up as needed documented in this encounterDetwiler Memorial Hospital03-18-2025 NoteHNO ID: [id number] Author: JOSEPH CORRIGAN LPN Service: ? Author Type: LICENSED NURSE Type: Progress Notes Filed: 11/24/2024 14:31 Note Text:[facility]03-18-[facility] History of Present illness Narrative* Joseph Corrigan LPN - 11/24/2024 1:40 PM EDT * Indigo Nichols PA-C - 11/24/2024 1:39 PM EDT Images from the original note were not included. [facility] Name: Garland De [...] balance issues, but no recent falls, no significantlightheadedness. Occasionally with swelling in the legs but [...] walking on glass and also has chronic gigm-vwn-hzlbgae feeling in her feet. Similar symptoms in her hands, the hands were very similar to how her feet started. Symptoms are equal bilaterally, no falls but does report some subjective weakness in the hands and feet. No weakness appreciated on exam but she does have stockingglove distribution of neuropathy consistent with polyneuropathy. Will obtain laboratory studies to teri lujan for other causes of worsening neuropathy but [...] Some worsening in the feet but otherwise symptomsare unchanged. Did try the alpha lipoic acid [...] (Hcc) Recurrent Major Depressive Disorder, in Remission ([facility]) Yary (Obstructive Sleep Apnea) Anxiety Lumbar Spinal Stenosis Nicotine use disorder, F17.2 S/P Lumbar Laminectomy Chronic Midline Low Back Pain Gait Instability Severe Persistent Asthma Headache, Unspecified Headache Type Congestion of Respiratory Tract PAST MEDICAL HISTORY Diagnosis Date Allergic rhinitis, cause unspecified 02/10/2007 Anxiety Arthritis Asthma 02/10/2007 Depression Psychiatrist managing (Dr. Bedolla) DM type 2 (diabetes mellitus, type 2) ([facility]) Essential hypertension 05/23/2006 Hemorrhage of gastrointestinal [...] Puffs as instructed every 4 hours asneeded. carvedilol (COREG) 25 mg tablet Take 25 [...] Cervical Cancer Mother Asthma Mother Heart Father [place] x 2 Cancer Father Lung, metastatic to [...] 06/22/2010 right knee arthroscopy- by Dr Dawson ([facility]) PAST SURGICAL HISTORY OF 04/27/2020 low back surgery at [facility];s/p L4 laminectomy, decompression of L4-5 canal [...] and assume there are 5 lumbar-type vertebrae. Boring Mill Set Up Operator: OLIVE Transcribe Date/Time: Sep 27 2022 5:51P Dictated by : RICHARD KAPOOR MD This examination was interpreted and the report reviewed and electronically signed by: RICHARD KAPOOR MD on Sep 27 2022 6:01PM EST This note was dictated using [employer] speech recognition software and may contain some [...] which included preparing to see the patient, yzfa-vb-jqri patient care, completing clinical documentation, obtaining and/or reviewing separately obtained history, performing a medically appropriate examination, counseling and educating the pat ient/family/caregiver, and ordering medications, tests, or procedures. documented in this encounterDetwiler Memorial Hospital03-18-2025 [facility]03-17-2025 History of Present illness Narrative* Tran Wilson RT(R) - 11/23/2024 3:40 PM EDT Radiology Service Progress Note [...] Assigned female at . status: : No status:NO. PATIENT RELEVANT IMPLANT DATA REVIEWED: Yes PATIENT PRESENTS WITH AN IMPLANTABLE OR ATTACHED FUR GLAZER: No RADIOLOGY DEPARTMENT: CT; Exam(s) Completed: Lung Screening PERIPHERAL IV DATA: Not applicable SIGNED BY: RT Edwin(R) November 23, 2024 3:55 PM documented in this encounterDetwiler Memorial Hospital03-17-2025 [facility]03-13-2025 Telephone encounter Note* Telephone Encounter - Ann GarciaHCRIS - 11/19/2024 8:51 AM EDT Images from the original note [...] that you do not live in a skilled nursing care (LTC) facility. We cannot pay for drugsunder Medicare Part D if they are covered under Medicare Part A or B. We did not decide whether ALBUTEROL SULFATE Nebu Soln is medically necessary. We made our decision only on the fact that we cannot pay for the drug under Medicare Part D. For more information, talk to your prescriber or call -MEDICARE. Payer: [employer] Electronic appeal: Not supported View History Notes [...] to its destination. To be filled at: [address] [place] [address] [address] [facility] - [phone] [facility]03-13-2025 Miscellaneous Notes* Telephone Encounter - Ann Garcia LPN - 11/19/2024 8:51 AM EDT Images from the original note [...] that you do not live in a predatory animal exterminator care (LTC) facility. We cannot pay for drugsunder Medicare Part D if they are covered under Medicare Part A or B. We did not decide whether ALBUTEROL SULFATE Nebu Soln is medically necessary. We made our decision only on the fact that we cannot pay for the drug under Medicare Part D. For more information, talk to your prescriber or call -MEDICARE. Payer: [facility] Electronic appeal: Not supported View [...] to its destination. To be filled at: [address] [place] [address] [address] [facility] - [phone] documented in this encounterDetwiler Memorial Hospital03-12-2025 Instructions* Patient Instructions* Willam Estrada MD - 11/18/2024 5:28 PM EDT - Refill your prescriptions at [facility], except for your test strips and nebulizer solutions,which should be refilled at [facility]. - Contact your insurance company to clarify coverage for your albuterol inhaler. - Discontinue Amlodipine due to swelling. - Resume taking Furosemide (Lasix) 20 mg daily to manage swelling; you already have this medicationat home. - Monitor your blood pressure regularly at home. - If your blood pressure rises significantly (e.g., 170s-180s over 90s), take a half dose of Amlodipine as needed. - Restart taking Alpha Lipoic Acid 600 mg daily for neuropathy symptoms. - Complete your lab tests as scheduled. - Next follow-up appointment is in 4 months. documented in this encounterDetwiler Memorial Hospital03-12-2025 [facility]03-12-[facility] History of Present illness Narrative* Willam Estrada MD - 11/18/2024 4:57 PM EDT This note was created using NoteWriter. Subjective Garland De Santiago is a 64 [...] history of HTN, DM, and neuropathy, presenting fora 4-month follow-up and medication refills. Garland reports recent changes in her antihypertensive regimen due to elevated blood pressure readings. She was recently prescribed carvedilol 25 mg BID and amlodipine 5 mg BID by her wafer fabrication operator,Dr. Cruz. However, she has experienced significant bilateral lower extremity edema, more pronounced on the right side, since starting amlodipine. The edema worsened when the dose was increased to 10 mg daily and has only slightly improved after reducing the dose back to 5 mg daily. She notes thatthe swelling exacerbates her neuropathy and knee pain. She denies current use of furosemide but hassome at home. She also has HCTZ at home, which was previously prescribed but discontinued. She denies recent lab work to monitor kidney function or potassium levels since the medication changes. Garland also reports increased wheezing and chest tightness over the past few days, requiring theuse of her nebulizer every 4 hours for relief. She uses an albuterol inhaler as a rescue medicationbut received a letter stating it is no [...] DM type 2 (diabetes mellitus, type 2) ([facility]) Essential hypertension 05/23/2006 Hemorrhage of gastrointestinal [...] Puffs as instructed every 4 hours asneeded. Alpha Lipoic Acid 600 mg cap Take [...] of insulin (HCC)(E11.40) # Neuropathy (G62.9) - Neuropathy symptoms persistent; previously discontinued alpha lipoic acid after one month withoutperceived benefit. - Educated on the need for [...] - Alprazolam prescription refilled and sent to [facility]. - Continue current management. Willam Estrada MD documented in this encounterDetwiler Memorial Hospital03-10-2025 Evaluation note* Diagnosis Onset Date Resolution Status Admit Date Degenerative disc disease, lumbar acute November 16, 2024 3:32pm Degenerative spondylolisthesis nonea ctive November 16, 2024 3:32pm Cervical myelopathy acute December 24, 2024 2:06pm Degenerative disc disease, lumbar acute December 24, 2024 2:06pm Lumbar stenosis with neuroge olga claudication acute December 24, 2024 2:06pm Cervical myelopathy acute January 082024 3:31pm Degenerative disc disease, lumbar acute February 04, 2025 3:31pm Lumbar stenosis with neuroge olga claudication acute February 04, 2025 3:31pm [facility] Work Phone: 1(100) 119-380803-05-2025 Procedure note [facility] Pulmonary Services/Neurology [address] [place] [address] MR#: [id number] Acct: [id number] Name: GARLAND DE SANTIAGO Rep #:[id number] : 1960 64 From: Aly Jeffrey MD Referring Dr: INDIGO NICHOLS atus: REG CLI Location: PSN Date: 11/11/24 Sex: F C NCS and/or EMG Patient Report Ordering Doctor: INDIGO NICHOLS DATE OF SERVICE: 11/11/24 Garland presents for electrodiagnostic testing of the right upper and right lower limb. She reports numbness and tingling in the hand and leg. Electrodiagnostic findings: Right median motor nerve demonstrates prolonged latency with normal amplitude and reduced conduction velocity. Normal right ulnar motor response. Normal right peroneal andright tibial motor responses. Normal median, ulnar, tibial and peroneal F-waves on the right side. Prolonged right median sensory latency at the wrist. Normal right ulnar and radial sensory responses. Normal right sural and right superficial peroneal responses. Needle EMG testing was performed the right upper and right lower limb. All muscles tested showed no evidence of denervation with normal motor unit action potentials. Electrodiagnostic impression: This is an abnormal study. 1. Electrodiagnostic findings suggestive of right-sided median mononeuropathy. This consistent witha mild right carpal tunnel syndrome. 2. There is no electrodiagnostic evidence for peripheral polyneuropathy. Testing is normal in the right lower limb. There was a previous study from October 07, 2019 which demonstrated bilateral suralneuropathy. There is no longer evidence of a right sural neuropathy. Multi Select Codes Neurology Neurology Interp Codes: 54892-68 Musc test done w/n test comp (interp) (2) and 24144-19 Nrv cndj test 11-12 studies (interp) 11/11/24 1410 D> Date _ Aly Jeffrey MD CC: Dr. Aly Jeffrey MD; Dr. Willam Estrada MD; KEVIN SOMMER ~ Date Dictated: 11/11/24 1407 Date Transcribed: 11/11/241406 [employer] Set Up Operator: AA Signed [facility]02-21-2025 Evaluation note* Diagnosis Onset Date Resolution Status Admit Date Hypertension chronic October 4:01pm Degenerative disc disease, lumbar acute November 16, 2024 3:32pm Degenerative spondylolisthesis nonea ctive November 16, 2024 3:32pm Cervical myelopathy acute December 24, 2024 2:06pm Degenerative disc disease, lumbar acute December 24, 2024 2:06pm Lumbar stenosis with neuroge olga claudication acute December 24, 2024 2:06pm [facility] Work Phone: [phone]) [phone] Telephone encounter Note* Telephone Encounter - Mirlande Amin LPN - 09/14/2024 1:54 PM EST Duplicate, Lisinopril refilled 09/14/2024. Mirlande Amin LPN [facility]01-06-2025 Miscellaneous Notes* Telephone Encounter - Mirlande Amin LPN - 09/14/2024 1:54 PM EST Duplicate, Lisinopril refilled 09/14/2024. Mirlande Amin LPN documented in this encounterDetwiler Memorial Hospital01-06-2025 Telephone encounter Note * Telephone [...] Please advise. Thank you. Mirlande Amin LPN. [facility]01-06-2025 Miscellaneous Notes* Telephone Encounter - [...] you. Mirlande Amin LPN. documented in this encounterDetwiler Memorial Hospital01-03-2025 Telephone encounter Note * Telephone [...] Hernandez RN September 11, 2024 10:40 AM [facility]01-03-2025 Miscellaneous Notes* Telephone Encounter - [...] 11, 2024 10:40 AM documented in this encounterDetwiler Memorial Hospital12-31-2024 Evaluation note* Diagnosis Onset Date Resolution Status Admit Date Cervical myelopathy acute Decem 2023 3:32pm Hypertension chronic October 4:01pm Degenerative disc disease, lumbar acute November 16, 2024 3:32pm Degenerative spondylolisthesis nonea ctive November 16, 2024 3:32pm [facility] Work Phone: 1(811) 780-917612-17-2024 NoteMercy Hospital12-17-2024 History of Present illness Narrative* Kati [...] not warranted. Interventions: Advocacy Assessment Discharge from [facility] panel Stakeholder collaboration Follow up calls to collaborators BOLIVAR Doan August 25, 2024 12:38 PM documented in this encounterDetwiler Memorial Hospital12-09-2024 NoteMer[facility]12-09-2024 History of Present illness Narrative* Kati Grant LSW - 08/17/2024 3:28 PM EST Value Based Social Work Progress Note Provider Action / FYI PCP Action none Date of Service: 08/17/2024 Patient identified by name/: Yes- via Telephone Referral Source: Referral Patient Outreach: Follow Up and call to patient re referral to [facility] for resources Mode of Outreach: Phone Call Response Time: Unable to reach (Final Attempt) Left message by: Voicemail BOLIVAR Doan August 17, 2024 3:29 PM documented in this encounterDetwiler Memorial Hospital12-06-2024 [facility]Mer[facility]12-06-2024 History of Present illness Narrative* Alyssa Hathaway RN - 08/14/2024 2:58 PM EST Transitional Care Management (TCM) Follow-Up Note PCP Update / Actionable Items N/A - No specialty updates needed Patient Source: Nzq-yd-Ddsguov (OON) Discharge Outreach Summary: Pt was seen [...] any questions or concerns. Patient discharged from [facility]. Discharge date: 08/05 [facility] Admitted for: urinary urgency , pneumonia [...] 14, 2024 3:03 PM documented in this encounterDetwiler Memorial Hospital12-04-2024 [facility]Mer[facility]12-04-2024 History of Present illness Narrative* Deanna Pagan, CHIEF PROGRAM OFFICER.UNDER CUTTING MACHINE OPERATOR - 08/12/2024 4:19 PM EST CC: Patient presents with: ER F/U: [facility] 08/02/24-Pneumonia & Hypotension HPI Garland De Santiago is a 64 year old female who presents today for above. She was admitted to [facility] 08/02 to 08/05 for hypotension secondary to dehydration and GRACIELA due to medications. Initially thought to be due to urosepsis however cultures came back negative. HCTZ was discontinued and Lisinopril doselowered from 40 to 20 mg a day. She returned to [facility] ER that same day she was discharged with weakness, fever and SOB. CTA revealed multifocal pneumonia, negative for PE. She was discharged home on Levaquin. She presented again to [facility] ER on 08/09 with chest tightness and leg pain. Repeat CT showed worsening bilateral pneumonia and new finding of bilateral pleural effusions. She completed the courseof Levaquin from previous ER visit, discharged home this time on doxycycline and cefuroxime. Steroids recommended but she declined to side effects including hyperglycemia. She was evaluated by bilingual secretary yesterday. Cefuroxime was discontinued due to itching and course of doxycycline was extendedto two weeks. Labs ordered and possible need for bronchoscopy was discussed. Patient's main concern today is elevated blood pressures since discharged on 08/05. She is checkingat home with average 140's-150's/80's. BNP ordered by bilingual secretary was slightly elevated. Patient denies history of CHF. She sees [facility] and Lasix was discontinued by wafer fabrication operator months ago. Denies chest pain, headaches, palpitations, worsening SOB, edema, PND, orthopnea, rapid weight gain. Review of Systems See HPI PAST MEDICAL HISTORY Diagnosis Date Allergic rhinitis, cause unspecified 02/10/2007 Anxiety Arthritis Asthma 02/10/2007 Depression Psychiatrist managing (Dr. Bedolla) DM type 2 (diabetes mellitus, type 2) ([facility]) Essential hypertension 05/23/2006 Hemorrhage of gastrointestinal [...] 12/13/2011 Colonoscopy repeat 10 years EGD W/O [facility] SPEC VARICIES INJ 02/22/2022 ESOPHAGOGASTRODUODENOSCOPY TRANSORAL DIAGNOSTIC 02/09/2016 EGD INCISE FINGER TENDON SHEATH Right 08/10/2021 Right ring trigger finger release JOINT REPLACEMENT HX LAPS ABD PRTM&OMENTUM DX W/WO SPEC BR/WA SPX Laparoscopy LAPS SURG CHOLECYSTECTOMY W/CHOLANGIOGRAPHY 10/07/2006 LIG/TRNSXJ FLP TUBE ABDL/VAG APPR UNI/BI Tubal ligation PAST SURGICAL HISTORY OF 06/22/2010 right knee arthroscopy- by Dr Dawson ([facility]) PAST SURGICAL HISTORY OF 04/27/2020 low back surgery at [facility];s/p L4 laminectomy, decompression of L4-5 canal [...] patch. (Patient not taking: Reported on 08/01/2024) zkgvfm-tlgmaiix-vtnhthg (CREON 24) 24,000-76,000 -120,000 unit delayed release [...] Cervical Cancer Mother Asthma Mother Heart Father [place] x 2 Cancer Father Lung, metastatic to [...] have reviewed the patient s records from [facility] including diagnostic testing performed, their discharge medications, [...] Resolved on most recent labs done at [facility] 08/09 3. Elevated brain natriuretic peptide [...] Patient agreeable to treatment plan. Deanna Pagan APRN.UNDER CUTTING MACHINE OPERATOR documented in this encounterDetwiler Memorial Hospital12-03-2024 Instructions* Patient Instructions* Mona Corrigan MD - 08/11/2024 3:17 PM EST Two week course of Doxycycline Monitor glucose levels Stop Cefuroxime documented in this encounterDetwiler Memorial Hospital12-03-2024 History of Present illness Narrative* Mona Corrigan MD - 08/11/2024 2:45 PM EST Images from the original note were not included. . [facility] [place] Note Patient name: Garland De Santiago PCP: Willam Estrada MD CC: Persistent PNA HPI: Garland De Santiago 64 year old female current 36 pack year smoker with PMH significant for allergies, asthma, DM, HTN, YARY non-compliant with BiPAP. She presents today with complaints of persistent PNA. She was hospitalized at [facility] 08/02/24 for possible urosepsis. Presented with hypotension. [...] DM type 2 (diabetes mellitus, type 2) ([facility]) Essential hypertension 05/23/2006 Hemorrhage of gastrointestinal [...] 1 tablet by mouth daily with breakfast. ersamn-urgtkrou-nzwdies (CREON 24) 24,000-76,000 -120,000 unit delayed release [...] Cervical Cancer Mother Asthma Mother Heart Father [place] x 2 Cancer Father Lung, metastatic to [...] 06/22/2010 right knee arthroscopy- by Dr Dawson ([facility]) PAST SURGICAL HISTORY OF 04/27/2020 low back surgery at [facility];s/p L4 laminectomy, decompression of L4-5 canal [...] -Cessation is paramount Mona Corrigan MD [facility] [place] documented in this encounterDetwiler Memorial Hospital12-03-2024 NoteMer[facility]12-02-2024 NoteMer[facility]12-02-2024 History of Present illness Narrative* Kati Grant LSW - 08/10/2024 4:08 PM EST Value Based Social Work Progress Note Provider Action / FYI PCP Action none Date of Service: 08/10/2024 Patient identified by name/: Yes- via Telephone Referral Source: Referral Patient Outreach: Follow Up Mode of Outreach: Phone Call Response Time: Unable to reach (2nd Attempt) Left message by: Voicemail BOLIVAR Doan August 10, 2024 4:09 PM documented in this encounterDetwiler Memorial Hospital12-02-2024 Telephone encounter Note * Telephone Encounter - Deena Flynn LPN - 08/10/2024 11:40 AM EST Patient called in and states she has been in the hospital several times and now has pneumonia and pleural effusion. She was told to get an appt with pulmonary SONIA. Transferred patient to schedulers to get an appt. Deena Flynn LPN [facility]12-02-2024 Miscellaneous Notes* Telephone Encounter - Deena Flynn LPN - 08/10/2024 11:40 AM EST Patient called in and states she has been in the hospital several times and now has pneumonia and pleural effusion. She was told to get an appt with pulmonary SONIA. Transferred patient to schedulers to get an appt. Deena Flynn LPN documented in this encounterDetwiler Memorial Hospital11-29-2024 NoteMer[facility]11-29-2024 History of Present illness Narrative* Alyssa Hathaway RN - 08/07/2024 2:41 PM EST Transition Care Management (TCM) Initial Outreach PCP Update / Actionable Items HRTIC TCM Home Visit Referral Source of Stratification: TCM HUB Hospital Admission Status: Discharged Readmission Risk Score: n/a Patient's zip code: [address] Is zip code within program service area: No Patient meets program referral criteria: No Patient does not qualify for High Risk TCM Home Visit program due to: Readmission Risk Score does not meet criteria Disposition: Patient does not qualify for HRTIC, will provide TCM outreach follow-up for 30-days Patient Source: Sih-lg-Udrkmow (OON) Discharge Outreach Summary: Pt reports she was dc'd from [facility] 08/05 then returned to the [facility] with fevers and SOB , had [...] any questions or concerns. Patient discharged from [facility] Discharge date: 08/05 [facility] Admitted for: urinary urgency , pneumonia Readmission Risk: n/a Value-Based Contract: HUAN Copied from 08/02 [facility] notes : Chief Complaint: Suprapubic pain nd urinary frequency, weakness HPI Narrative GARLAND DE SANTIAGO, is a 64 F with a history of GERD, YARY, COPD, tobacco use, depression, chronic diarrhea who presented [facility] ED 08/02/2024 with generally not feeling [...] patient end up in the hospital 08/05 [facility] : Chief Complaint: Shortness of Breath [...] called the nurse on-call line who monserrat madelineendshe come back to the emergency room. She [...] RN and I am calling from the [facility] on behalf of your Primary [...] like to speak with a social work help desk team leader to help give you support for any [...] I will send your request to a director of child welfare services who will contact and assist you with [...] 07, 2024 2:51 PM documented in this encounterDetwiler Memorial Hospital11-27-2024 Telephone encounter Note * Telephone Encounter - Yenifer Alberto RN - 08/05/2024 7:36 PM EST Reason for call: Patient calling with concern for worsening symptoms since discharge from [facility] earlier today. Hospitalized for GRACIELA. Patient [...] 100-120) Protocols used: Infection on Antibiotic Follow-up [id number]-GN [facility]11-27-2024 Miscellaneous Notes* Telephone Encounter - Yenifer Alberto RN - 08/05/2024 7:36 PM EST Reason for call: Patient calling with concern for worsening symptoms since discharge from [facility] earlier today. Hospitalized for GRACIELA. Patient [...] 100-120) Protocols used: Infection on Antibiotic Follow-up [id number]-EHUVO-EP documented in this encounterDetwiler Memorial Hospital11-27-[address]24 [facility]11-26-2024 Telephone encounter Note* Telephone Encounter - Ish Hurtado RN - 08/04/2024 12:26 PM EST Patient returned call and given message below. Patient asking provider office to mail order to her home via [employer]. Address verified in chart is correct. Mailed [employer] per request. [facility]11-26-2024 Miscellaneous Notes* Telephone Encounter - [...] mail. Karla Parker LPN documented in this encounterDetwiler Memorial Hospital11-26-2024 Telephone encounter Note * Telephone Encounter - Karla Parker LPN - 08/04/2024 11:21 AM EST Left message for patient to call office. Have an order for a bath/shower chair and needing to know where she would like the order faxed to or whether have it sent to her in the mail. Karla Parker LPN [facility]11-25-2024 Telephone encounter Note* Telephone Encounter - Karissa Collier RN - 08/03/2024 9:21 AM EST Patient notified. Karissa Collier RN [facility]11-25-2024 Miscellaneous Notes* Telephone Encounter - [...] she may continue this documented in this encounterDetwiler [facility] Hospital11-[facility]24 Telephone encounter Note * Telephone Encounter - Virginia Silveira LPN - 08/03/2024 7:51 AM EST Left message for patient to return call for results.Virginia Silveira LPN [facility]11-25-2024 Telephone encounter Note* Telephone Encounter - Mirtha Narvaez PA - 08/03/2024 7:11 AM EST Please contact patient and let her know her urine culture revealed no UTI. She needs to follow-up with primary care for persistent symptoms. If antibiotic is helping, she may continue this [facility] Work Phone: 1(369) 112-337611-24-2024 Evaluation note* Diagnosis Onset Date Resolution Status Admit Date GRACIELA (acute kidney injury) resolved August 02, 2024 11:09am Cervical myelopathy acute Decem 2023 3:32pm Hypertension chronic October 4:01pm Degenerative disc disease, lumbar acute November 16, 2024 3:32pm Degenerative spondylolisthesis nonea ctive November 16, 2024 3:32pm [facility] Work Phone: 1(333) 418-567311-23-2024 [facility] History of Present illness Narrative* Felipe Jolly, CHRIS.UNDER CUTTING MACHINE OPERATOR - 08/01/2024 1:59 PM EST Subjective HPI [...] DM type 2 (diabetes mellitus, type 2) ([facility]) Essential hypertension 05/23/2006 Hemorrhage of gastrointestinal [...] 12/13/2011 Colonoscopy repeat 10 years EGD W/O [facility] SPEC VARICIES INJ 02/22/2022 ESOPHAGOGASTRODUODENOSCOPY TRANSORAL DIAGNOSTIC 02/09/2016 EGD INCISE FINGER TENDON SHEATH Right 08/10/2021 Right ring trigger finger release JOINT REPLACEMENT HX LAPS ABD PRTM&OMENTUM DX W/WO SPEC BR/WA SPX Laparoscopy LAPS SURG CHOLECYSTECTOMY W/CHOLANGIOGRAPHY 10/07/2006 LIG/TRNSXJ FLP TUBE ABDL/VAG APPR UNI/BI Tubal ligation PAST SURGICAL HISTORY OF 06/22/2010 right knee arthroscopy- by Dr Dawson ([facility]) PAST SURGICAL HISTORY OF 04/27/2020 low back surgery at [facility];s/p L4 laminectomy, decompression of L4-5 canal [...] patch. (Patient not taking: Reported on 08/01/2024) pjrxcs-qirlphdt-lunziis (CREON 24) 24,000-76,000 -120,000 unit delayed release capsule Take 1 capsule by mouth with meals. With snacks and meals (Patient not taking: Reported on 08/01/2024) FAMILY HISTORY Problem Relation Age of Onset Hypertension Mother history of glaucoma Cervical Cancer Mother Asthma Mother Heart Father [place] x 2 Cancer Father Lung, metastatic to [...] of care. This note was generated using Brighter.com software. It may contain errors in wording, punctuation, or spelling. Felipe Jolly APRN.UNDER CUTTING MACHINE OPERATOR documented in this encounterDetwiler [facility] Hospital11-22-2024 Telephone encounter Note * Telephone Encounter - Joseph Corrigan LPN - 07/31/2024 3:46 PM EST New orders faxed, confirmation received Joseph Corrigan LPN July 31, 2024 3:46 PM [facility]11-22-2024 Miscellaneous Notes* Telephone Encounter - [...] 07/29/2024 2:40 PM EST Bridgett Cerda @ [facility] calling with request for new EMG order specifying extremity (right arm or leg)? Sriram Cabrales RN documented in this encounterDetwiler Memorial Hospital11-22-2024 Telephone encounter Note * Telephone Encounter - Indigo Nichols PA-C - 07/31/2024 2:31 PM EST New orders placed for general upper and general lower extremity on the right. [facility]11-22-2024 Telephone encounter Note* Telephone Encounter - Joseph Corrigan LPN - 07/31/2024 11:15 AM EST Images from the original note were not included. Yes new order needs to be placed to specify extremities. Indigo Nichols PA-C Neuro Magdalena3 hours ago (8:09 AM) MQ Both arm and leg, does another order need to be placed? Indigo Nichols PA-C [facility]11-22-2024 [facility]11-[facility] History of Present illness Narrative* Kati [...] 31, 2024 8:56 AM documented in this encounterDetwiler Memorial Hospital11-20-2024 Instructions* Patient Instructions* Willam Estrada MD - 07/29/2024 5:56 PM EST - Refill your Glipizide prescription at [facility]. - Refill your Motrin prescription; continue taking 600 mg once daily as needed for pain. - Switch to Hydrochlorothiazide 25 mg once daily; refill prescription at [facility]. - Refill your Pantoprazole prescription; continue [...] appointment in 4 months. documented in this encounterDetwiler Memorial Hospital11-20-2024 [facility] History of Present illness Narrative* Willam Estrada MD - 07/29/2024 5:29 PM EST This note was created using Clean Membranes. Subjective Garland De Santiago is a 64 [...] She denies eating flaxseed, walnuts, or edamame. Melissahas not been exercising but reports weight loss and a BMI approaching 30. PAST MEDICAL HISTORY Diagnosis Date Allergic rhinitis, cause unspecified 02/10/2007 Anxiety Arthritis Asthma 02/10/2007 Depression Psychiatrist managing (Dr. Bedolla) DM type 2 (diabetes mellitus, type 2) ([facility]) Essential hypertension 05/23/2006 Hemorrhage of gastrointestinal [...] as needed for blood sugar over 200 wsqslm-scbrekqn-sxppksa (CREON 24) 24,000-76,000 -120,000 unit delayed release [...] management. Willam Estrada MD documented in this encounterDetwiler Memorial Hospital11-20-2024 Telephone encounter Note * Telephone Encounter - Sriram Cabrales RN - 07/29/2024 2:40 PM EST Bridgett Cerda @ [facility] calling with request for new EMG order specifying extremity (right arm or leg)? 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 Joseph Corrigan LPN July 29, 2024 1:36 PM [facility]11-20-2024 Nurse Note* Joseph Corrigan LPN - 07/29/2024 1:32 PM EST C/o DANY feet neuropathy for years, taking gabapentin-worked at first but not working, feels like jabs, cuts at the bottom, shooting pain in her toes. Joseph Corrigan LPN July 29, 2024 1:36 PM documented in this encounterDetwiler Memorial Hospital11-20-2024 [facility]11-20-[facility] History of Present illness Narrative* Indigo Nichols PA-C - 07/29/2024 1:29 PM EST Images from the original note were not included. [facility] Name: Garland De [...] walking on glass and also has chronic vbiy-skg-hbsmelk feeling in her feet. Similar symptoms in [...] the feet. Gets constant numbness and tingling, skce-ixl-mypjqty as well. But when she ambulates, it feels like she is walking on glass and getting her feet cut. Notes that in the last few weeks she started getting symptoms in her hands which is new for her, more intermittent but described more as a yfnq-tag-geutpph feeling throughout the hands bilaterally. Reports maybe [...] Neuropathy, Without Long-Term Current Use of Insulin ([facility]) Recurrent Major Depressive Disorder, in Remission ([facility]) Yary (Obstructive Sleep Apnea) Anxiety Lumbar Spinal Stenosis Nicotine use disorder, F17.2 S/P Lumbar Laminectomy Chronic Midline Low Back Pain Gait Instability Severe Persistent Asthma Headache, Unspecified Headache Type Congestion of Respiratory Tract PAST MEDICAL HISTORY Diagnosis Date Allergic rhinitis, cause unspecified 02/10/2007 Anxiety Arthritis Asthma 02/10/2007 Depression Psychiatrist managing (Dr. Bedolla) DM type 2 (diabetes mellitus, type 2) ([facility]) Essential hypertension 05/23/2006 Hemorrhage of gastrointestinal [...] as needed for blood sugar over 200 kfyfyg-seyrxzxr-kpiycol (CREON 24) 24,000-76,000 -120,000 unit delayed release [...] Cervical Cancer Mother Asthma Mother Heart Father [place] x 2 Cancer Father Lung, metastatic to [...] 06/22/2010 right knee arthroscopy- by Dr Dawson ([facility]) PAST SURGICAL HISTORY OF 04/27/2020 low back surgery at [facility];s/p L4 laminectomy, decompression of L4-5 canal stenosis with bilateral L4,L5 root foraminotomies TONSILLECTOMY PRIMARY/SECONDARY <AGE 12 Tonsillectomy VAGINAL HYSTERECTOMY UTERUS 250 GM/< Hysterectomy, vaginal for menorrhagia SOCIAL HISTORY Lived in current [facility] 1 month, 6 attached units in building. [...] Skin Biopsy: This note was dictated using Brighter.com speech recognition software and may contain some [...] which included preparing to see the patient, rdsa-cj-yioj patient care, completing clinical documentation, obtaining and/or reviewing separately obtained history, performing a medically appropriate examination, counseling and educating the pat ient/family/caregiver, and ordering medications, tests, or procedures. documented in this encounterDetwiler [facility] Hospital11-14-2024 [facility]11-14-2024 History of Present illness Narrative* Kati [...] of a house which she got through [facility]. She is ambulatory but is very unsteady on her feet and has had one prior recent fall. She has to take 19 stairs to get to her unit. She is independent withmeal prep, and self care, but she is unable tyo take baths since she cannot get in and out of the tub safely. 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 She has Medicare [...] pay for it. Referral initiated with [facility]. They will call her and arrange for her assessment in the home. Interventions: Advocacy Assessment Referral to community resource Stakeholder collaboration BOLIVAR Doan July 23, 2024 3:09 PM documented in this encounterDetwiler [facility] Hospital11-13-2024 [facility]11-13-2024 History of Present illness Narrative* Kati Grant LSW - 07/22/2024 3:56 PM EST Value Based Social Work Progress Note Provider Action / FYI PCP Action [place] Date of Service: 07/22/2024 Patient identified by name/: No and left message Referral Source: Referral Patient Outreach: Initial for assistance with life alert/ on Medicaid Mode of Outreach: Phone Call Response Time: Unable to reach (1st Attempt) Left message by: Voicemail BOLIVAR Doan July 22, 2024 3:56 PM documented in this encounterDetwiler [facility] Hospital11-13-2024 [facility]11-13-2024 History of Present illness Narrative* Tex Foreman RN - 07/22/2024 11:21 AM EST CDM Telephonic Outreach Provider Action/FYI Pt is having dizziness and gait is unsteady. Fell in March Discussed possible Life Alert. She is on a fixed income and is unable to afford. Offered to speak with SW about possible resources for Lifeline/Alert Will route [...] more often than normal? No Based on assistant case manager, the following disposition is advised: No symptoms or symptoms present, not severe. Routed to: No Action Needed LISA Education Provided this Outreach: No Tex Foreman RN July 22, 2024 11:42 AM documented in this encounterDetwiler [facility] Hospital11-01-2024 Telephone encounter Note * Telephone [...] as instructed once daily. Karissa Collier RN [facility]11-01-2024 Miscellaneous Notes* Telephone Encounter - [...] daily. Karissa Collier RN documented in this encounterDetwiler Memorial Hospital10-31-2024 Telephone encounter Note * Telephone Encounter - Willam Estrada MD - 07/09/2024 11:21 PM EDT Noted has appointment with neurology before appointment with [place] 07/29 No change in gabapentin dose at this time. [facility]10-31-2024 Miscellaneous Notes* Telephone Encounter - Willam Estrada MD - 07/09/2024 11:21 PM EDT Noted has appointment with neurology before appointment with la 07/29 No change in gabapentin dose at this time. * Telephone Encounter - Sriram Cabrales RN - 07/09/2024 5:37 PM EDT Spoke with patient. She wants to see Neurologist before increasing Gabapentin. Transferred to director of child welfare services for appointment. Sriram Cabrales RN * Telephone [...] Please advise. * Telephone Encounter - Fabiana Hernandze LPN - 07/07/2024 12:42 PM EDT Pt [...] recommended? Fabiana Hernandez LPN documented in this encounterDetwiler Memorial Hospital10-31-2024 Telephone encounter Note * Telephone Encounter - Sriram Cabrales RN - 07/09/2024 5:37 PM EDT Spoke with patient. She wants to see Neurologist before increasing Gabapentin. Transferred to director of child welfare services for appointment. Sriram Cabrales RN [facility]10-31-2024 Telephone encounter Note* Telephone Encounter - Willam Estrada MD - 07/09/2024 3:43 PM EDT Option for neuropathy pain: Increase dose of gabapentin as tolerated Referral to pain management Referral to neurology. Filed the consult to neurology since patient requested as noted below. See if wants to try higher dose gabapentin or see neurologist first [facility]10-30-2024 Telephone encounter Note* Telephone Encounter - Karla Parker LPN - 07/08/2024 5:48 PM EDT Printed copy of TE to have PCP address. Karla Parker LPN [facility]10-30-2024 Telephone encounter Note* Telephone Encounter - Corinne Belle LPN - 07/08/2024 3:55 PM EDT Patient calling again, states she had another episode of severe pain in her feet for 3 hours last night. Asking what the recommendation is. Please advise. [facility]10-29-2024 Telephone encounter Note* Telephone Encounter [...] or what is recommended? Fabiana Hernandez LPN [facility]10-27-2024 [facility]10-25-2024 [facility] History of Present illness Narrative* Oxana Pack RN - 07/03/2024 1:22 PM EDT [facility] Telephonic Outreach Provider Action/ Monthly outreach call # 1 Contacted for: Routine Telephonic Outreach Contact made with patient: No, left message. Oxana Pack RN July 03, 2024 1:22 PM documented in this encounterDetwiler Memorial Hospital10-21-2024 Telephone encounter Note * Telephone Encounter - Jonnathan Nagy LPN - 06/29/2024 2:55 PM EDT OK to keep appt. Patient notified. Jonnathan Nagy LPN [facility]10-21-2024 Miscellaneous Notes* Telephone Encounter - [...] yet. Deena Flynn LPN documented in this encounterDetwiler Memorial Hospital10-21-2024 Telephone encounter Note * Telephone Encounter - Deena Flynn LPN - 06/29/2024 11:57 AM EDT Patient called in and is wondering if she should keep her appt with Roxi Click tomorrow since her CT is not back yet. Deena Flynn LPN [facility]10-15-2024 History of Present illness Narrative* [...] PATIENT PRESENTS WITH AN IMPLANTABLE OR ATTACHED FUR GLAZER: No RADIOLOGY DEPARTMENT: CT; Exam(s) Completed: Chest PERIPHERAL IV DATA: Not applicable SIGNED BY: RT Edwin(R) June 23, 2024 3:52 PM documented in this encounterDetwiler [facility] Hospital10-15-2024 [facility]10-03-2024 Telephone encounter Note* Telephone Encounter - Willam Estrada MD - 06/11/2024 9:39 PM EDT The following approved medication requests have been transmitted electronically. Requested Prescriptions Signed Prescriptions Disp Refills gabapentin (NEURONTIN) 300 mg capsule 120 capsule 5 Sig: Take 2 capsules by mouth two times a day for 180 days. Authorizing Provider: WILLAM ESTRADA MD [facility]10-03-2024 Miscellaneous Notes* Telephone Encounter - [...] 11, 2024 8:29 AM documented in this encounterDetwiler Memorial Hospital10-03-2024 Telephone encounter Note * Telephone [...] Sharp MA June 11, 2024 8:29 AM [facility]09-26-2024 [facility]09-26-2024 History of Present illness Narrative* Oxana Pack RN - 06/04/2024 2:46 PM EDT [facility] Telephonic Outreach Provider Action/FYI Contacted for: Routine [...] more often than normal? Yes Based on assistant case manager, the following disposition is advised: No symptoms or symptoms present, not severe. Routed to: No Action Needed LISA Education Provided this Outreach: Yes Patient states she has been a little more short of breath and coughing up clear phlegm. Patient attributes to the fall approaching. Offered to contact virtualist. Denies current need. Agrees to contact PCP or bilingual secretary should the symptoms get worse. Denies other needs, questions, concerns at this time. Oxana Pack RN June 04, 2024 2:58 PM documented in this encounterDetwiler [facility] Hospital09-11-2024 Telephone encounter Note * Telephone [...] the COVID-19 treatment considerations Criteria Met: Yes [facility]09-11-2024 Miscellaneous Notes* Telephone Encounter - [...] Paxlovid RX to be sent to [facility].Mirlande Amin LPN * Telephone Encounter - Allegra Berumen APRN.HEIDY - 05/20/2024 10:35 AM EDT Please return [...] the Paxlovid rx to be sent to [facility]. Please advise documented in this encounterDetwiler Memorial Hospital09-11-2024 Telephone encounter Note * Telephone [...] Berumen APRN.CNP May 20, 2024 10:44 AM [facility]09-11-2024 Instructions* Patient Instructions* Allegra Berumen APRN.CNP - 05/20/2024 10:44 AM EDT Images from the original note were not included. FACT SHEET FOR PATIENTS, PARENTS, AND CAREGIVERS EMERGENCY USE AUTHORIZATION (EUA) OF PAXLOVID FOR CORONAVIRUS DISEASE 2019 (COVID-19) You are being given this Fact Sheet because your healthcare provider believes it is necessary to provide you with PAXLOVID for the treatment of wdsa-mg-rmlsmkpu coronavirus disease (COVID-19) caused by the SARS-CoV-2 [...] to makePAXLOVID available for the treatment of ovsf-qd-gmnengnl COVID-19 in adults and children 12 years [...] virus. COVID-19 illnesses have ranged from very ihfw-oi-dadmso, including illness resulting in . While information [...] available under EUA for the treatment of gppx-dq-cjvlttvi COVID-19 in adults and children 12 years [...] of using PAXLOVID to treat children with bimf-kd-vmgdncnu COVID-19. What is the most important information [...] o ranolazine o rifampin o rifapentine o Tara s Wort (hypericum perforatum) o sildenafil (Revatio [...] the medicines you take, including prescription and obgp-qtn-tomvnxt medicines, vitamins, and herbal supplements. Your healthcare [...] morning or evening, depending on when you berry picker your prescription, or as your healthcare [...] PAXLOVID is FDA-approved for the treatment of fgtq-hm-rultuprw COVID-19 in certain adults; however,there are not sufficient quantities of the approved presentations (i.e., dose packs) of PAXLOVID atthis time. This EUA continues to authorize the emergency use of PAXLOVID for the approved patient population to ensure continued access in order to meet the public health need. VEKLURY (remdesivir) is FDA-approved for the treatment of ihcy-um-equmyhvi COVID-19 in certain adults and children. Talk with your healthcare provider to see if VEKLURY is appropriate for you. For information on the emergency use of other medicines that are authorized by FDA to treat people with COVID-19, please go to https://www.fda.gov/dhvxjwkpa-bfraafxdvmjd-dka-response/kyt-tzwnb-pzqkvwe jli-flc-oclker-framework/ygmsvkrww-iou-xqkfyceynrmfa. Your healthcare provider may talk with you [...] examples of PAXLOVID Dose Packs) to FDA Ripltch at www.fda.gov/medwatch or call 7-067-DAR-3492 or you can report side effects to [employer]. at the contact information provided below. How [...] bottom of blister pack at this website: https://www.paxlovidlSeGan Angel Prints.[employer]/ or talk with your healthcare provider. Information onthe authorized shelf-life extensions for PAXLOVID may also be found at https://www.fda.gov/emergency -znocwxbtxpqb-lbv-zjsbzzpk/pgf-huufb-cqtdvrrtrz-xne-coacjj-tyvupsyos/expiration- dating-extension. How can I learn more about COVID-19? Ask your healthcare provider. Visit https://www.cdc.gov/COVID19. Contact your local or state public health department. What is an Emergency Use Authorization (EUA)? The [place] FDA has made PAXLOVID available under an emergency access mechanism called an Emergency Use Authorization (EUA). The EUA is supported by a [place] of Health and Human Services ([facility]) declaration that circumstances exist to justify [...] call the telephone number provided below. Website: www.[employer] Telephone number: (1-877-c19-pack) Distributed by [employer] [place] [address] [id number] Revised: 01/2023 documented in this encounterDetwiler Memorial Hospital09-11-2024 Telephone encounter Note * Telephone Encounter - Mirlande Amin LPN - 05/20/2024 10:41 AM EDT Patient notified, verbalized understanding. Asking for Paxlovid RX to be sent to [facility].Mirlande Amin LPN [facility]09-11-2024 Telephone encounter Note* Telephone Encounter - Allegra Berumen APRN.HEIDY - 05/20/2024 10:35 AM EDT Please return [...] hold those medications while taking the Paxlovid? [facility]09-11-2024 Telephone encounter Note* Telephone Encounter - Karissa Collier RN - 05/20/2024 9:44 AM EDT To add to note below: Patient also asking to clarify if she should take all 3 medications; the Medrol Dose Pack, the Z-Arnulfo and the Paxlovid? Please call patient back with reply to this note, and request below, as soon as able. Thank you. [facility]09-11-2024 Telephone encounter Note* Telephone Encounter - Nat Malik LPN - 05/20/2024 9:32 AM EDT Patient calling her COVID test came back positive today. Patient is asking for the Paxlovid rx to be sent to [facility]. Please advise [facility]09-10-2024 Instructions* Patient Instructions* Willam Estrada MD - 05/19/2024 7:36 PM EDT -Start taking the Medrol Dose Pack and Z-Arnulfo as prescribed to address your current symptoms and prevent them from worsening. - You will be swabbed for COVID, flu, and RSV today; results should be available by [facility] or tomorrow. - If your COVID test [...] Saturday with Dr. Nair. documented in this encounterDetwiler Memorial Hospital09-10-2024 [facility]Mer[facility]09-10-2024 History of Present illness Narrative* Willam Estrada MD - 05/19/2024 7:10 PM EDT This note was created using Orbiterter. Subjective Garland De Santiago is a 63 [...] DM type 2 (diabetes mellitus, type 2) ([facility]) 05/23/2006: Essential hypertension 12/13/2011: Hemorrhage of gastrointestinal tract, unspecified Comment: Had bleeding hemorrhoids in 2012; normal colonoscopy 12/13/2011: Internal hemorrhoids without mention [...] needed. (Patient not taking: Reported on 05/19/2024) aiiwyb-linboqsf-rygagpx (CREON 24) 24,000-76,000 -120,000 unit delayed release [...] moderate COPD by GOLD classification (HCC) - Recent exacerbation with increased chest tightness; nebulizer treatments providing relief. - Continues daily use of Breo Ellipta; refills sent to pharmacy. - Prescribed Flonase, two sprays in each nostril as needed for decongestion; refills sent to [facility]. - Patient has adequate supply of albuterol for nebulizer and inhaler use. - Discussed potential need for pneumococcal booster in five years due to COPD history. Encounter Diagnosis ICD-10-CM 1. Sinobronchitis J32.9 COVID & INFLUENZA A/B & RSV PCR, ROUTINE J40 2. Stage 2 moderate COPD by GOLD classification ([facility]) J44.9 fluticasone- vilanterol (BREO ELLIPTA) 200-25 mcg/dose inhaler 3. Acute upper respiratory infection J06.9 COVID & INFLUENZA A/B & RSV PCR, ROUTINE 4. Acute viral syndrome B34.9 COVID-19 antigen test (COVID-19 AT-HOME TEST) kit COVID test kits RX given as requested Willam Estrada MD documented in this encounterDetwiler Memorial Hospital08-30-2024 Telephone encounter Note * Telephone Encounter - Keyana Vieira RN - 05/08/2024 8:29 PM EDT Reason for Call: Dysuria., abdominal pain. Outcome: See within 4 hours. States she will go to [facility] now. Reason for Disposition Diabetes mellitus [...] medication tried. Protocols used: Urination Pain - Gyxnfb-YGQKM-FX [facility]08-30-2024 Miscellaneous Notes* Telephone Encounter - Keyana Vieira RN - 05/08/2024 8:29 PM EDT Reason for Call: Dysuria., abdominal pain. Outcome: See within 4 hours. States she will go to [facility] now. Reason for Disposition Diabetes mellitus [...] medication tried. Protocols used: Urination Pain - Clqzkw-OMMIN-XQ documented in this encounterDetwiler [facility] Hospital08-29-2024 History of Present illness Narrative* Mona Corrigan MD - 05/07/2024 2:45 PM EDT Images from the original note were not included. . [facility] [place] Note Patient name: Garland De Santiago PCP: Willam Estrada MD CC: Follow-up obstructive lung disease HPI: Garland De Santiago 63 year old female current 36 pack year smoker with PMH significant for allergies, asthma, DM2, HTN, YARY non-compliant with BiPAP. Current inhaled therapy with Breo Ellipta andalbuterol. Participating in lung cancer screening. [facility] Due to an elevated [...] using nicotine patches. DATA: Reviewed EMR from [facility] as well as images SERVICE DATE: 11/11/2023 SERVICE TIME: 11:02 AM Oral Exhaled Nitric Oxide measurement: 6.0 (ppb) PFT 11/2023: Pulmonary function tests show small airways obstruction Imaging / Diagnostic Studies: DATE OF EXAM: Nov 22 2023 3:59PM [facility] 0562 - CT LUNG SCREEN IVCON / COMPARISON: Low-dose screening CT performed at [...] air trapping and small pulmonary nodules [facility] 03/23/24: Groundglass nodule, mosaic pattern, patchy infiltrates mainly on the left PAST MEDICAL HISTORY 02/10/2007: Allergic rhinitis, cause unspecified No date: Anxiety No date: Arthritis 02/10/2007: Asthma No date: Depression Comment: Psychiatrist managing (Dr. Bedolla) No date: DM type 2 (diabetes mellitus, type 2) ([facility]) 05/23/2006: Essential hypertension 12/13/2011: Hemorrhage of [...] Puffs as instructed every 4 hours asneeded. affjoc-bvzviwzo-swoqmqm (CREON 24) 24,000-76,000 -120,000 unit delayed release [...] 2 DM - Uncontrolled E1165 Insulin: No Blood-Glucose Meter monitoring kit Insurance [...] -Weight loss advised Mona Corrigan MD [facility] [place] documented in this encounterDetwiler [facility] Hospital08-29-[facility]08-[facility] History of Present illness Narrative* Rola Browne RN - 04/28/2024 12:40 PM EDT CDM Telephonic Outreach Provider Action/FYI history of COPD Contacted for: Goals/Falls/ADL Update Contact made with patient: No, left message. Rola Browne RN April 28, 2024 2:05 PM and Engagement Contact made with patient: No, left message. Rola Browne RN April 28, 2024 2:05 PM documented in this encounterDetwiler Memorial Hospital08-12-2024 Instructions* Patient Instructions* Willam Estrada [...] spilling through the kidneys. documented in this encounterDetwiler Memorial Hospital08-12-2024 [facility]08-12-2024 History of Present illness Narrative* Willam Estrada MD - 04/20/2024 11:58 AM EDT This note was created using [employer]. Subjective Garland De Santiago is a 63 [...] Arthritis 02/10/2007: Asthma No date: Centrilobular emphysema ([facility]) No date: Depression Comment: Psychiatrist managing (Dr. Bedolla) No date: DM type 2 (diabetes mellitus, type 2) ([facility]) 05/23/2006: Essential hypertension 12/13/2011: Hemorrhage of [...] Puffs as instructed every 4 hours asneeded. srccdu-hzftozsp-kddvpaj (CREON 24) 24,000-76,000 -120,000 unit delayed release [...] bronchitis with chronic obstructive pulmonary disease (COPD) ([facility]) ([facility]): Treatment as discussed. See patient instructions Essential [...] hyperglycemia, without long-term current use of insulin ([facility]): - Patient's last A1c in November was [...] the date of the service which included zici-md-zskg patient care, completing clinical documentation, obtaining and/or reviewing separately obtained history, performing a medically appropriate examination, counseling and educating the patient/family/caregiver, and ordering medications, tests, or procedures. Willam Estrada MD documented in this encounterDetwiler [facility] Hospital08-11-2024 Telephone encounter Note * Telephone Encounter - Renu Peña RN - 04/19/2024 1:09 PM EDT Reason for Call: Wheezing and increased use of nebulizer, recent hospitalization. Outcome: Advised to be seen within 24 hours. Caller conferenced to [facility] appointment center for available appointment in office [...] side effects with breathing Protocols used: Breathing Wigdepnfcs-AWPWD-WR, Asthma Soaenn-RKQKN-OV [facility]08-11-2024 Miscellaneous Notes* Telephone Encounter - Renu Peña RN - 04/19/2024 1:09 PM EDT Reason for Call: Wheezing and increased use of nebulizer, recent hospitalization. Outcome: Advised to be seen within 24 hours. Caller conferenced to [facility] appointment center for available appointment in office [...] side effects with breathing Protocols used: Breathing Chziuvqbqf-IWLVE-MP, Asthma Iysilc-EGFUO-KY documented in this encounterDetwiler Memorial Hospital08-01-2024 NoteMer[facility]08-01-2024 History of Present illness Narrative* Alyssa Hathaway RN - 04/09/2024 3:40 PM EDT Transitional Care Management (TCM) Follow-Up Note PCP Update / Actionable Items Pt reports she is feeling much improved over the last 2 weeks. BP has been WNL. Breathing well. Denies any SOB , chest discomfort, cough, wheezing. N/A - No specialty updates needed Patient Source: Zmw-il-Efvfbgu (OON) Discharge Pt discharged from [facility] on 03/24/24. Admitted for: UTI, pneumonia , [...] 09, 2024 3:45 PM documented in this encounterDetwiler Memorial Hospital07-29-2024 Telephone encounter Note * Telephone Encounter - Derick Goddard LPN - 04/06/2024 2:34 PM EDT PATIENT NOTIFIED OF SAME. Will contact his office to request the refill. [facility]07-29-2024 Miscellaneous Notes* Telephone Encounter - Derick Goddard LPN - 04/06/2024 2:34 PM EDT PATIENT NOTIFIED OF SAME. Will contact his office to request the refill. * Telephone Encounter - Leilani Ramirez APRN.CNS - 04/06/2024 2:28 PM EDT It looks like Dr. Caceres gastroenterology at [facility] has ordered this, if she is [...] 06, 2024 1:16 PM documented in this encounterDetwiler Memorial Hospital07-29-2024 Telephone encounter Note * Telephone Encounter - Leilani Ramirez APRN.CNS - 04/06/2024 2:28 PM EDT It looks like Dr. Caceres gastroenterology at [facility] has ordered this, if she is still seeing him would recommend she check with him for refill first and let us know if any problems [facility]07-29-2024 Telephone encounter Note* Telephone Encounter [...] Goddard LPN April 06, 2024 1:16 PM T [facility]07-29-2024 Telephone encounter Note* Telephone Encounter [...] Figueroa LPN April 06, 2024 12:58 PM [facility]07-29-2024 Miscellaneous Notes* Telephone Encounter - Cristiane [...] 06, 2024 12:58 PM documented in this encounterDetwiler Memorial Hospital07-29-2024 Telephone encounter Note * Telephone [...] Figueroa LPN April 06, 2024 12:57 PM [facility]07-29-2024 Miscellaneous Notes* Telephone Encounter - [...] 06, 2024 12:57 PM documented in this encounterDetwiler Memorial Hospital07-25-2024 Telephone encounter Note * Telephone Encounter - Mirlande Amin LPN - 04/02/2024 8:43 AM EDT Patient notified of below results/recommendations. Garland is wanting to push fluids and see if the symptoms resolve. Mirlande Amin LPN [facility]07-25-2024 Miscellaneous Notes* Telephone Encounter - [...] kidney disease? Please advise documented in this encounterDetwiler Memorial Hospital07-25-2024 Telephone encounter Note * Telephone [...] or wait and see if symptoms improve. [facility]07-23-2024 Telephone encounter Note* Telephone Encounter [...] concern she has kidney disease? Please advise [facility]07-22-2024 NoteMer[facility]07-22-2024 History of Present illness Narrative* Willam [...] for a follow up from recent hospitalization. Ihave reviewed the patient's hospital course including discharge summary, discharge medications , and follow up needs with the patient and any family members present at today's visit. HPI Patient presents with: ED Follow-up Hospital F/U: [facility] follow up from 03/21/24 - 03/24/24 SUBJECTIVE: [...] DM type 2 (diabetes mellitus, type 2) ([facility]) Essential hypertension 05/23/2006 Hemorrhage of gastrointestinal [...] Puffs as instructed every 4 hours asneeded. pkkkzg-nswlokge-zmunprm (CREON 24) 24,000-76,000 -120,000 unit delayed release [...] sleep. Willam Estrada MD documented in this encounterDetwiler Memorial Hospital07-18-2024 History of Present illness Narrative* Chela Montgomery LPN - 03/26/2024 12:30 PM EDT Patient made appt for Saturday03/30/24 per patient request and declined sooner appointment until she is completed with antibiotic. Chela Montgomery LPN * Willam Estrada MD - 03/26/2024 12:01 PM EDT Does patient want to come in this afternoon or next ? 40 minute ?TCM * Aylssa Hathaway RN - 03/26/2024 11:06 AM EDT [...] [facility] Pt checked her BP , was 152/105 , then rechecked a few minutes later at 151/101. Advised pt will make her PCP 's office aware and she will recheck her BP this afternoon. 03/30 PCP f/u 05/07 Pulm f/u SUMMARY: Discharge Network Status: Eal-nz-Tzqdnla (OON) Discharge Pt discharged from [facility] on 03/24/24. Admitted for: UTI, pneumonia , [...] criteria Disposition: Patient [facility], will provide TCM outreach follow-up for 30-days Alyssa Hathaway RN March 26, 2024 11:08 AM Contact made with patient: Yes Hi my name is Alyssa Hathaway RN and I am calling from the [facility] on behalf of yourP, Willam Estrada MD I understand you were [...] on? Pt states Atenolol dc 'd by [facility]. Do you need any medication refills [...] like to speak with a social work help desk team leader to help give you support for any [...] I will send your request to a director of child welfare services who will contact and assist you with [...] possible). LISA Education Ordered -: No Alyssa Hathwaay RN March 26, 2024 11:18 AM documented in this encounterDetwiler Memorial Hospital07-18-2024 Telephone encounter Note * Telephone [...] dose pack of 50 Willam Estrada MD [facility]07-18-2024 Miscellaneous Notes* Telephone Encounter - [...] E-Scribe Pt states [facility]ills were and needed to request new rx 's Last OV: 03/04/24 with Becky Jolly Future OV: Dr Estrada 03/30/24 Requested Prescriptions Pending Prescriptions Disp Refills albuterol (PROVENTIL) 2.5 mg /3 mL (0.083 %) nebulizer solution 50 mL 5 Sig: Use 3 mL via nebulizer every 4 hours as needed for wheezing/shortness of breath. ipratropium (ATROVENT) 0.02 % nebulizer solution 50 mL 5 Sig: Use 2.5 mL via nebulizer four times daily. Unit dose pack of 50 Pharmacy Name: [facility] Phone #: [phone] Alyssa Hathaway RN documented in this encounterDetwiler Memorial Hospital07-18-2024 Telephone encounter Note * Telephone Encounter - Alyssa Hathaway RN - 03/26/2024 11:55 AM EDT Physician: Dr Estrada Call from patient requesting refill. Please E-Scribe Pt states she was advised by [facility] that her refills were and needed to request new rx 's Last OV: 03/04/24 with Becky Jolly Future OV: Dr Estrada 03/30/24 Requested Prescriptions Pending Prescriptions Disp Refills albuterol (PROVENTIL) 2.5 mg /3 mL (0.083 %) nebulizer solution 50 mL 5 Sig: Use 3 mL via nebulizer every 4 hours as needed for wheezing/shortness of breath. ipratropium (ATROVENT) 0.02 % nebulizer solution 50 mL 5 Sig: Use 2.5 mL via nebulizer four times daily. Unit dose pack of 50 Pharmacy Name: [facility] Phone #: [phone] Alyssa Hathaway RN [facility]07-15-2024 Telephone encounter Note* Telephone Encounter - Frieda Blake MA - 03/23/2024 9:32 AM EDT Left message for patient to return call. Frieda Blake MA [facility]07-15-2024 Miscellaneous Notes* Telephone Encounter - Frieda Blake MA - 03/23/2024 9:32 AM EDT Left message for patient to return call. Frieda Blake MA * Telephone Encounter - Deena Ivey APRN.CNP - 03/23/2024 9:01 AM EDT Urine culture reveals bacterial growth. ATB selected provides coverage. Please advise patient to complete, Follow up with PCP if sx persist. Please advise documented in this encounterDetwiler [facility] Hospital07-15-2024 Telephone encounter Note * Telephone Encounter - Deena Ivey APRN.CNP - 03/23/2024 9:01 AM EDT Urine culture reveals bacterial growth. ATB selected provides coverage. Please advise patient to complete, Follow up with PCP if sx persist. Please advise [facility]07-12-2024 Instructions* Patient Instructions* Deena Ivey [...] treated. A physician, nurse practitioner or physician cataloging assistant may treat with a short course [...] women if symptoms resolve. documented in this encounterDetwiler Memorial Hospital07-12-2024 History of Present illness Narrative* Deena Ivey APRN.CNP - 03/20/2024 4:00 PM EDT This note was created using [employer]. Subjective Garland De Santiago is a 63 [...] history is provided by the patient. No quality assurance director was used. UTI This is a new [...] DM type 2 (diabetes mellitus, type 2) ([facility]) Essential hypertension 05/23/2006 Hemorrhage of gastrointestinal [...] 06/22/2010 right knee arthroscopy- by Dr Dawson ([facility]) PAST SURGICAL HISTORY OF 04/27/2020 low back surgery at [facility];s/p L4 laminectomy, decompression of L4-5 canal [...] Puffs as instructed every 4 hours asneeded. cwhxae-iunpupeq-dqygczx (CREON 24) 24,000-76,000 -120,000 unit delayed release [...] Cervical Cancer Mother Asthma Mother Heart Father [place] x 2 Cancer Father Lung, metastatic to [...] URINE (POC) - URINE CULTURE Deena Ivey APRN.UNDER CUTTING MACHINE OPERATOR documented in this encounterDetwiler Memorial Hospital07-12-2024 Telephone encounter Note * Telephone Encounter - Nat Malik LPN - 03/20/2024 3:43 PM EDT Patient calling she is having UTI symptoms, pelvic pain, had been incontinent of urine. Aware no appt available this afternoon with PCP or [facility], advised to go to express care for evaluation. Patient said she would go to express care. [facility]07-12-2024 Miscellaneous Notes* Telephone Encounter - Nat Malik LPN - 03/20/2024 3:43 PM EDT Patient calling she is having UTI symptoms, pelvic pain, had been incontinent of urine. Aware no appt available this afternoon with PCP or [facility], advised to go to express care for evaluation. Patient said she would go to express care. documented in this encounterDetwiler [facility] Hospital06-26-2024 History of Present illness Narrative* [...] PATIENT PRESENTS WITH AN IMPLANTABLE OR ATTACHED FUR GLAZER: No RADIOLOGY DEPARTMENT: General X-ray: Exam(s) Completed: Chest X-Ray Upper Extremity X-Ray(s): Elbow, right PERIPHERAL IV DATA: Not applicable SIGNED BY: RT Dale(R) March 04, 2024 2:53 PM documented in this encounterDetwiler Memorial Hospital06-26-2024 History of Present illness Narrative* Felipe Jolly, CHRIS.UNDER CUTTING MACHINE OPERATOR - 03/04/2024 2:38 PM EDT Subjective HPI [...] 06/22/2010 right knee arthroscopy- by Dr Dawson ([facility]) PAST SURGICAL HISTORY OF 04/27/2020 low back surgery at [facility];s/p L4 laminectomy, decompression of L4-5 canal [...] Puffs as instructed every 4 hours asneeded. xdlxrl-roocqoin-hquzzbn (CREON 24) 24,000-76,000 -120,000 unit delayed release [...] Cervical Cancer Mother Asthma Mother Heart Father [place] x 2 Cancer Father Lung, metastatic to [...] Wt 87.8 kg (193 lb 9 oz) TaB005% BMI 31.24 kg/m Hr 90 Review of [...] plan of care. This note was generatedusing [employer] software. It may contain errors in wording, punctuation, or spelling. Felipe Jolly APRN.HEIDY documented in this encounterDetwiler Memorial Hospital06-11-2024 History of Present illness Narrative* [...] PATIENT PRESENTS WITH AN IMPLANTABLE OR ATTACHED FUR GLAZER: No RADIOLOGY DEPARTMENT: General X-ray: Exam(s) Completed: Lower Extremity X- Ray(s): Foot, Left PERIPHERAL IV DATA: Not applicable SIGNED BY: RT Dale(R) February 18, 2024 3:43 PM documented in this encounterDetwiler Memorial Hospital06-11-2024 History of Present illness Narrative* Allegra Berumen APRN.UNDER CUTTING MACHINE OPERATOR - 02/18/2024 3:30 PM EDT SUBJECTIVE Garland [...] , filters, tubing, humidifier and lifetime supplies. ajrcfo-ulrmixfc-isqwviu (CREON 24) 24,000-76,000 -120,000 unit delayed release [...] 2 DM - Uncontrolled E1165 Insulin: No Blood-Glucose Meter monitoring kit Insurance covered or per patient choice. Test blood sugar twice daily plus as needed for symptoms of blood sugars being too high or low. Dx: Type 2 DM - Uncontrolled 65 Insulin:No Nebulizer NEBULIZER FOR HOME USE. DX: [...] Anxiety Recurrent Major Depressive Disorder, in Remission (Hcc) Type 2 Diabetes Mellitus With Diabetic Neuropathy, Without Long-Term Current Use of Insulin ([facility]) -02/01/2017 Obesity (Bmi 30.0-34.9) Rhinitis - 10/30/2013 [...] appointment.. Allegra Berumen APRN-HEIDY documented in this encounterDetwiler Memorial Hospital05-17-2024 Telephone encounter Note * Telephone Encounter - Willam Estrada MD - 01/24/2024 12:53 PM EDT Will discuss at her appointment next month then whether should get sooner. [facility]05-17-2024 Miscellaneous Notes* Telephone Encounter - [...] starchy anyway). See whether Rito Sanchez or wafer fabrication operator will be checking labs through their lab [...] the tests. Please advise documented in this encounterDetwiler Memorial Hospital05-16-2024 Telephone encounter Note * Telephone Encounter - Keshia Briseno LPN - 01/23/2024 11:57 AM EDT Patient notified of providers message and verbalized understanding. Patient states that cardiology states they will be having her do labs prior to her appointment with them in March. [facility]05-15-2024 Telephone encounter Note* Telephone Encounter [...] starchy anyway). See whether Rito Sanchez or wafer fabrication operator will be checking labs through their lab or just get through [facility] when due.for checking next month. [facility]05-13-2024 Telephone encounter Note* Telephone Encounter [...] in chart from the tests. Please advise [facility]04-29-2024 Telephone encounter Note* Telephone Encounter - Allegra Berumen APRN.CNP - 01/06/2024 8:35 AM EDT See telephone encounter regarding results. [facility]04-29-2024 Miscellaneous Notes* Telephone Encounter - Allegra Berumen APRN.CNP - 01/06/2024 8:35 AM EDT See telephone encounter regarding results. documented in this encounterDetwiler Memorial Hospital04-05-2024 Miscellaneous Notes* Telephone Encounter - Ish Hurtado, KELSEY - 12/13/2023 8:13 AM EDT Phoned patient [...] advise, Ashley Hernandez RN documented in this encounterDetwiler Memorial Hospital04-01-2024 Miscellaneous Notes* Telephone Encounter - [...] her CPK was in the 800s to 43395 range and at the time, recommended that since was only up the 1000's range and she was without symptoms, no further work up was needed--he suspected she had a hereditary disorder causing the elevation without symptoms. Okay to refer for further evaluation now if wants. I did not see any recent labs--check [email or web address] if was done there. Last ones checked here in [facility] [place] to 300s to 500s range. I can file a consult order if she wants but verify what her CK level has been at [facility] and verify if having symptoms now [...] could have the muscle biopsy done at [facility] with one of the general surgeons, if pcp could send an order to them. Please advise patient. documented in this encounterDetwiler Memorial Hospital03-29-2024 History of Present illness Narrative* [...] Puffs as instructed every 4 hours asneeded. jaxwqx-zhacbyzp-dgrrkso (CREON 24) 24,000-76,000 -120,000 unit delayed release [...] WITH REFLEX C-REACTIVE PROTEIN (CRP) SED RATE [facility] Follow up with GI for further evaluation [...] which included preparing to see the patient, qtky-vn-yyju patient care, completing clinical documentation, obtaining and/or reviewing separately obtained history, performing a medically appropriate examination, counseling and educating the pat ient/family/caregiver, ordering medications, tests, or procedures, independently interpreting results (not separately reported), and communicating results to the patient/family/caregiver. Willam Estrada MD documented in this encounterDetwiler Memorial Hospital03-21-2024 Procedure [facility]03-21-2024 Procedure [facility]03-18-2024 Miscellaneous Notes* Telephone Encounter - Justyna Mora APRN.CNP - 11/25/2023 2:56 PM EDT Spoke with patient and the following results were discussed: LDCT Lung Screen Results LungRADS category: 2 S Incidentals: moderate coronary artery calcifications Recommendations: Continue annual screening with LDCT in 12 months. Follow up with cardiology [facility]. Patient verbalized understanding of the results and had no other questions or concerns at this time. Justyna Mora APRN.CNP November 25, 2023 2:56 PM * Telephone Encounter - Vikki Oliveira MA - 11/25/2023 11:06 AM EDT Pt calling for results of recent Screening CT. She states it is ok to send results via [employer]. Vikki Oliveira MA documented in this encounterDetwiler Memorial Hospital03-15-2024 History of Present illness Narrative* Tran Wilson, (R) - 11/22/2023 3:40 PM EDT Radiology Service [...] PATIENT PRESENTS WITH AN IMPLANTABLE OR ATTACHED FUR GLAZER: No RADIOLOGY DEPARTMENT: CT; Exam(s) Completed: Chest PERIPHERAL IV DATA: Not applicable SIGNED BY: Tran Yao RT(R) November 22, 2023 3:59 PM documented in this encounterDetwiler Memorial Hospital03-13-2024 Miscellaneous Notes* Telephone Encounter - [...] study from 2013 to be faxed to [phone]. Pending order to print Please advise documented in this encounterDetwiler Memorial Hospital03-12-2024 Instructions* Patient Instructions* Willam Estrada MD - 11/19/2023 5:47 PM EDT See if Edis is covered with your insurance. If not, in the area is Tuyet Michael. documented in this encounterDetwiler Memorial Hospital03-12-2024 History of Present illness Narrative* Willam Estrada MD - 11/19/2023 5:21 PM EDT This note was created using Sophia Learningriter. Subjective Garland De Santiago is a 63 year old female. Patient presents with: Follow Up: med refills, c/o hemorrhoid seeing next and colonoscopy discuss getting a new bipap machine last one 2013 SUBJECTIVE: Garland De Santiago is a [...] Puffs as instructed every 4 hours asneeded. dsooyp-ojybizbd-xmkydyx (CREON 24) 24,000-76,000 -120,000 unit delayed release [...] Type 2 DM - Uncontrolled Insulin: No ketoconazole (NIZORAL) 2 % cream [...] Lymph 1.00 - 4.00 k/uL 4.52 (H) [place]% % 5.8 Abs [place] <0.87 k/uL 0.77 Eosin% % 11.8 Abs [...] lipids. Willam Estrada MD documented in this encounterDetwiler Memorial Hospital03-04-2024 Instructions* Patient Instructions* Justyna Mora APRN.UNDER CUTTING MACHINE OPERATOR - 11/11/2023 11:39 AM EST SMOKING CESSATION [...] to quit. Smokefree.gov Web Address: www.smokefree.gov Phone: [employer] Web Address: www.lung.org [address] [place] [address] Jessica. [facility] , [place] Phone: Phone: [facility] Smoking Cessation Program [email or web address] CT Lung Screen Results The CT [...] to endocrinology. Others Lung Cancer Screening hotline: [phone] Lung Cancer Screening [phone] Billing Questions: or [email or web address] Specialist Providers: (Sarah Daley CNP; Tegan Thomason PA-C; Monica Castellon CNP; Janelle Feliz CNP, Soha Hollis CNP; Tran Duran CNP; Garland Martinez PA-C; Justyna Mora CNP; Kati Raymond CNP; Leonarda Edwards PA-C; Aparna Shah CNP; Claudia Mena UNDER CUTTING MACHINE OPERATOR; Lori Ceballos CNP): [phone] documented in this encounterDetwiler Memorial Hospital03-04-2024 History of Present illness Narrative* [...] Carries out light duty. Modified Medical Research Corinne Dyspnea Scale (MMRC) On level ground I [...] 06/22/2010 right knee arthroscopy- by Dr Dawson ([facility]) PAST SURGICAL HISTORY OF 04/27/2020 low back surgery at [facility];s/p L4 laminectomy, decompression of L4-5 canal stenosis with bilateral L4,L5 root foraminotomies TONSILLECTOMY PRIMARY/SECONDARY <AGE 12 Tonsillectomy VAGINAL HYSTERECTOMY UTERUS 250 GM/< Hysterectomy, vaginal for menorrhagia FAMILY HISTORY Problem Relation Age of Onset Hypertension Mother history of glaucoma Cervical Cancer Mother Asthma Mother Heart Father [place] x 2 Cancer Father Lung, metastatic to [...] Puffs as instructed every 4 hours asneeded. bnsjzx-groqankt-bsgzllk (CREON 24) 24,000-76,000 -120,000 unit delayed release [...] or more of exposure): Other, [employer]-worked in [employer] department 5. Race: White 6. Education: High School [...] directly visualized the testing documented: 10/11/2021 LDCT [facility] Lung RADS category 1. 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: : 1960 Requested By: Order Number: [id number] Reading MD: Mona Corrigan MD Interpretive Statements [...] 14:09:47 EDT by Mona Corrigan MD ID: [id number] Name: GARLAND DE SANTIAGO Race: White Ht: 64.80 in Wt: 201.00 lbs Age: 62 Gender: Female : 1960 Dx: COPD_ Smoking Hx: Non-smoker Doctor: LEILA RUBI Test Date: 04/24/2023 Site: Tech: Petush, Lucy PRE-BRONCH POST-BRONCH Pre LLN Pred ULN %Pred Post %Pred %Chg SPIROMETRY FVC (L) 2.91 2.17 3.01 3.87 96 FEV1 (L) 2.03 1.69 2.38 3.02 85 FEV1/FVC 0.70 0.67 0.79 0.89 87 PEF L/s (L/sec) 5.37 4.50 6.25 8.01 85 FEF50 (L/sec) 2.14 1.73 3.34 4.95 64 FIF50 (L/sec) 4.88 FEF50/FIF50 0.44 90-100 FIVC (L) 2.87 IOH77-01 (L/sec) 1.13 1.09 2.19 3.68 51 Time [...] Six year risk for lung cancer: 8.38% Https://[email or web address]/[email or web address]/[email or web address]_yes_unknown [email or web address]://www.nGage [email or web address]/[email or web address]://youtu.be/[email or web address] I have determined that the patient [...] 11, 2023 11:31 AM documented in this encounterDetwiler Memorial Hospital03-04-2024 Procedure note* Lucy Chandra RPFT [...] 2023 TIME: 11:02 AM documented in this encounterDetwiler Memorial Hospital03-04-2024 History of Present illness Narrative* Lucy Chandra RPFT - 11/11/2023 10:47 AM EST PULM FUNCTION SMARTBLOCK: Provider: Mona Corrigan MD Assisting Tech: Lucy Chandra RPFT Spirometry: 1 Exhaled Nitric Oxide: 1 documented in this encounterDetwiler Memorial Hospital03-01-2024 Miscellaneous Notes* Telephone Encounter - [...] you. Nat Malik LPN. documented in this encounterDetwiler Memorial Hospital02-27-2024 History of Present illness Narrative* Mona Corrigan MD - 11/05/2023 2:45 PM EST Images from the original note were not included. . [facility] [place] Note Patient name: Garland De Santiago PCP: Willam Estrada MD CC: Asthma HPI: Garland De Santiago 63 year old female current 45-tcbi-oyhp smoker with PMH significant for allergies, asthma, [...] Type 2 DM - Uncontrolled E11.65 Insulin:No lipxnr-nzejpnoo-zrcbdan (CREON 24) 24,000-76,000 -120,000 unit delayed release [...] Cervical Cancer Mother Asthma Mother Heart Father [place] x 2 Cancer Father Lung, metastatic to [...] 06/22/2010 right knee arthroscopy- by Dr Dawson ([facility]) PAST SURGICAL HISTORY OF 04/27/2020 low back surgery at [facility];s/p L4 laminectomy, decompression of L4-5 canal [...] referral/repeat titration study Mona Corrigan MD [facility] [place] documented in this encounterDetwiler Memorial Hospital01-12-2024 Discharge summary Author Jono Castro [facility] September 20, 2023 7:39pm Note Date/Time September 20, 2023 6 :10pm [facility] Medical Records Department [address] [place] [address] Emergency Department Summary 09/20/23 MR#: [id number] Acct: [id number] Name: GARLAND DE SANTIAGO Rep #:[id number] : 1960 63 From: Jono Castro [...] it. Gait is normal. Coordination is normal. [facility] Medical History Abdominal pain Anxiety Anxiety and [...] #60 tabs 07/08/23 [Rx Last Taken Unknown] zwgifg-ggvazqhr-fxdijlc 24,000-76,000-120,000 unit capsule,delayed rel (Creon) 1cap PO [...] % (Auto) 54.3 Lymph % (Auto) 36.5 [place] % (Auto) 5.8 Eos % (Auto) 2.4 [...] Signed: Johnny Saucedo MD at 18:58 EST , Head CTA 09/20/23 18:35 IMPRESSION: Age [...] Willam Estrada MD [Primary Care Provider] - 1 Week if not improving Disposition Disposition: Home, Self Care What to do if you have Problems For any increased pain, shortness of breath, bleeding, nausea or vomiting, chestpain, or any unexpected problems, contact your Primary Care Provider. Call [facility] ([phone]) or report to the closest Emergency Room. Call 911 if necessary. 09/20/231938 <Electronically signed by Jono Castro MD> Cosigner Signature (if applicable): CC: Dr. Willam Estrada MD ~ Signed [facility] Work Phone: [phone]) 914-162001-04-2024 Telephone encounter Note* Telephone Encounter - Karissa Armstrong - 09/12/2023 9:43 AM EST 3 rd attempt left message to return call to schedule consult for lung cancer screening. My chart message also sent [facility]01-04-2024 Miscellaneous Notes* Telephone Encounter - [...] screening * Telephone Encounter - Maria R Baig, KELSEY - 09/03/2023 10:08 AM EST Called and left VM informing the patient that we have the order and asking her to call back and schedule an appointment. Maria R Baig, KELSEY * Telephone Encounter - Tran Mcfadden LPN - 09/03/2023 8:44 AM EST Images from the original note were not included. Justyna Mora APRN.UNDER CUTTING MACHINE OPERATOR You 4 days ago MH I placed an order for consult lung cancer screening. Please director of child welfare services her for that. She has not been [...] Does want to have done here at [facility]. Possibly need order to schedule? Transferred to scheduling. Tran Mcfadden LPN * Telephone Encounter - Vikki Oliveira MA - 08/30/2023 12:34 PM EST Images from the original note were not included. Leila Rubi PA-C This may be done at [facility]. Is she enrolled in the lung cancer screening program at [facility]? If so, they will order the LDCT. * Telephone Encounter - Yasmine Arias - 08/30/2023 10:31 AM EST Patient verified by name and . She is requesting an order be faxed to [facility] for her to schedule her yearly low dose lung cancer screening CT. Review and advise. documented in this encounterDetwiler Memorial Hospital01-02-2024 Telephone encounter Note * Telephone Encounter - Heather Giang - 09/10/2023 11:19 AM EST 2nd Attempt to call and schedule. LVM [facility]12-29-2023 Telephone encounter Note* Telephone Encounter - Karissa Armstrong - 09/06/2023 12:00 PM EST 1st attempt left message to return call to schedule consult for lung cancer screening [facility]12-26-2023 Telephone encounter Note* Telephone Encounter - Maria R Baig RN - 09/03/2023 10:08 AM EST Called and left VM informing the patient that we have the order and asking her to call back and schedule an appointment. Maria R Baig RN [facility]12-26-2023 Telephone encounter Note* Telephone Encounter - Tran Mcfadden LPN - 09/03/2023 8:44 AM EST Images from the original note were not included. Justyna Mora APRN.UNDER CUTTING MACHINE OPERATOR You 4 days ago MH I placed an order for consult lung cancer screening. Please director of child welfare services her for that. She has not been seen by our team. We will do an enrollment visit and then if she qualifies we will schedule her for her LDCT at a later time. Angela Morataya [facility]12-22-2023 Telephone encounter Note* Telephone Encounter - Yasmine Arias - 08/30/2023 3:26 PM EST Patient verified by name and . She will need an order placed to be able to schedule. Review and advise. [facility]12-22-2023 Telephone encounter Note* Telephone Encounter - Tran Mcfadden LPN - 08/30/2023 3:15 PM EST Called patient. Verified name and date of . Patient informed per message from Leila Rubi PA-C. Verbalizes understanding. Does want to have done here at [facility]. Possibly need order to schedule? Transferred to scheduling. Tran Mcfadden LPN [facility]12-22-2023 Telephone encounter Note* Telephone Encounter - Vikki Oliveira MA - 08/30/2023 12:34 PM EST Images from the original note were not included. Leila Rubi PA-C This may be done at [facility]. Is she enrolled in the lung cancer screening program at [facility]? If so, they will order the LDCT. [facility]12-22-2023 Telephone encounter Note* Telephone Encounter - Yasmine Arias - 08/30/2023 10:31 AM EST Patient verified by name and . She is requesting an order be faxed to [facility] for her to schedule her yearly low dose lung cancer screening CT. Review and advise. [facility]12-01-2023 Miscellaneous Notes* Telephone Encounter - [...] you. Ashley Hernandez RN. documented in this encounterDetwiler Memorial Hospital11-14-2023 History of Present illness Narrative* [...] 23, 2023 4:52 PM documented in this encounterDetwiler Memorial Hospital11-14-2023 History of Present illness Narrative* Willam Estrada MD - 07/23/2023 3:43 PM EST This note was created using Sophia Learningriter. Subjective Garland De Santiago is a 63 [...] needed for the high sugars. Watching diet. Dr. Friend added Protonix 40 mg twice daily. [...] DM type 2 (diabetes mellitus, type 2) ([facility]) Essential hypertension 05/23/2006 Hemorrhage of gastrointestinal tract, unspecified 12/13/2011 Had bleeding hemorrhoids in 2011; normal colonoscopy Internal hemorrhoids without mention of complication 12/13/2011 Mixed hyperlipidemia 05/23/2006 Obesity (BMI 30.0-34.9) YARY (obstructive sleep apnea) Uses BiPAP occasionally Other nonspecific abnormal finding 05/23/2006 CK Elevation Snoring Current Outpatient Medications Medication Sig ifybsv-enbfzeer-rowhqgv (CREON 24) 24,000-76,000 -120,000 unit delayed release [...] calculated from the following: Height as of 8/16/23: 167.6 cm (5' 6). Weight as of [...] the date of the service which included gkwe-pm-yvno patient care, completing clinical documentation, obtaining and/or reviewing separately obtained history, performing a medically appropriate examination, counseling and educating the patient/family/caregiver, and ordering medications, tests, or procedures. Willam Estrada MD documented in this encounterDetwiler Memorial Hospital11-09-2023 Miscellaneous Notes* Telephone Encounter - [...] her b/p was 182/121 6. OTHER SYMPTOMS: 3/10 H/A, feels jittery Protocols used: Blood Pressure - Egcs-OHJKR-CD documented in this encounterDetwiler Memorial Hospital11-09-2023 History of Present illness Narrative* Rola Browne RN - 07/18/2023 10:21 AM EST [facility] Telephonic Outreach Provider Action/FYI called to check [...] of breath with activity? No Based on assistant case manager, the following disposition is advised: No symptoms or symptoms present, not severe. Routed to: No Action Needed LISA Education Provided this Outreach: No Rola Browne RN July 18, 2023 1:06 PM documented in this encounterDetwiler Memorial Hospital11-08-2023 History of Present illness Narrative* [...] and will continue to monitor readings Denies LUNA,flushing,dizziness, SOB or edema in legs Pt did eat cheetos last evening. Will avoid sodium at dinner time Pt is also taking her lasix and lisinopril Message received via: portal administrator Pool Contact made with patient: Yes The patient was identified by name and date of . Discussed Care with patient Based on assistant case manager, the following disposition is advised: No symptoms or symptoms present, not severe. Routed to: No Action Needed LISA Education Provided this Outreach: No Rola Browne RN July 17, 2023 3:58 PM documented in this encounterDetwiler Memorial Hospital10-26-2023 History of Present illness Narrative* [...] this appointment? No Reason for Outreach [facility] Payer: Payor: MEDICARE / Plan: MEDICARE A [...] 03/31/2022 Influenza Vaccine(1) due on 05/10/2023 Covid-19 Vaccine(6 - 2022-24 season) due on 05/10/2023 Mammogram Screening due on 09/14/2023 Navigation Signature: January Fernández MA July 04, 2023 11:23 AM * Rola Browne RN - 07/04/2023 8:17 AM EDT CDM ESCALATION Provider Action / FYI: [facility] escalation Pt has multiple concerns [...] the next 7 days Message received via: portal administrator Pool Contact made with patient: Yes The patient was identified by name and date of . Discussed Care with patient Based on assistant case manager, the following disposition is advised: No symptoms [...] patient x1, left VM Message received via: portal administrator Pool Contact made with patient: No, left message. Rola Browne RN July 04, 2023 8:49 AM documented in this encounterDetwiler Memorial Hospital10-23-2023 Procedure [facility]10-23-2023 Procedure [facility]10-20-2023 Miscellaneous Notes* Telephone Encounter - Corinne Belle LPN - 06/28/2023 4:39 PM EDT Patient only has 6 strips left. Asking if this can be sent today. Please advise. documented in this encounterDetwiler Memorial Hospital10-19-2023 Discharge summary Author Corey Rubi [facility] June 28, 2023 12:29am Note Date/Time June 27, 2023 1 0:58pm [facility] Medical Records Department [address] [place] [address] Emergency Department Summary 06/27/23 MR#: [id number] Acct: [id number] Name: GARLAND DE SANTIAGO Rep #:[id number] : 1960 63 From: Corey Rubi [...] is scheduled for an EGD [facility]. She states she checked her blood pressure prior to coming here and it cas500/130, which was concerning to her, she is [...] red blood per rectum. No urinary symptoms. [facility] Medical History Abdominal pain [...] 40.1 L Lymph % (Auto) 48.9 H [place] % (Auto) 5.9 Eos % (Auto) 4.5 [...] Signed: Apollo Monteiro MD at 23:05 EDT Reading Location ID and State: [address] [place] [address] Tel , Service support , Rhythm Strip Rhythm Strip: Sinus Rhythm [...] your Primary Care Provider. Call [facility] ([phone]) or report to the closest Emergency Room. Call 911 if necessary. 06/28/23 002 <Electronically signed by Corey Rubi MD> Cosigner Signature (if applicable): CC: Dr. Willam Estrada MD ~ Signed [facility] Work Phone: 1(742) 174-975509-25-2023 Miscellaneous Notes* Telephone Encounter - Lori Silver RN - 06/03/2023 2:48 PM EDT Pt called and is notified of providers results and instructions. Pt voices understanding. Lori Silver RN * Telephone Encounter - Allegra Berumen APRN.CNP - 06/03/2023 2:28 PM EDT Please let [...] be elevated too much. Patient's pharmacy is [facility]. Ashley Hernandez RN * Telephone Encounter - [...] advise, Ashley Hernandez RN documented in this encounterDetwiler Memorial Hospital09-22-2023 Instructions* Patient Instructions* Allegra Berumen APRN.CNP - 05/31/2023 2:27 PM EDT Check blood work. Start your Zyrtec daily for the next 2 weeks. Start using the hydroxyzine ER ordered as needed. Start Pepcid (famotidine) twice daily. Do oatmeal baths to help with itching. documented in this encounterDetwiler Memorial Hospital09-22-2023 History of Present illness Narrative* Allegra Berumen APRN.CNP - 05/31/2023 2:15 PM EDT SUBJECTIVE Garland De Santiago is a 62 year old female here today for a check up on her medical problems. Chief Complaint Patient presents with: ER F/U: [facility] ER pm 05/26/2023 and 05/30/2023 with hives. [...] itching and hives. Seen in ED at [facility] and treated. Had fevers around 100.0 degrees [...] low. Dx: Type 2 DM - Uncontrolled 65 Insulin:No Nebulizer NEBULIZER FOR HOME USE. DX: [...] Anxiety Recurrent Major Depressive Disorder, in Remission (Hcc) Type 2 Diabetes Mellitus With Diabetic Neuropathy, Without Long-Term Current Use of Insulin ([facility]) -02/01/2017 Obesity (Bmi 30.0-34.9) Rhinitis - 10/30/2013 [...] appointment.. Allegra Berumen APRN-HEIDY documented in this encounterDetwiler Memorial Hospital09-19-2023 Instructions* Patient Instructions* Deena Ivey [...] or other serious complaints. documented in this encounterDetwiler Memorial Hospital09-19-2023 History of Present illness Narrative* [...] 28, 2023 6:39 PM documented in this encounterDetwiler Memorial Hospital09-19-2023 History of Present illness Narrative* Deena Ivey APRN.UNDER CUTTING MACHINE OPERATOR - 05/28/2023 6:31 PM EDT This note was created using Orbiter[employer]. Subjective Garland De Santiago is a 62 [...] history is provided by the patient. No quality assurance director was used. Cough This is a new [...] DM type 2 (diabetes mellitus, type 2) ([facility]) Essential hypertension 05/23/2006 Hemorrhage of gastrointestinal [...] 06/22/2010 right knee arthroscopy- by Dr Dawson ([facility]) PAST SURGICAL HISTORY OF 04/27/2020 low back surgery at [facility];s/p L4 laminectomy, decompression of L4-5 canal [...] 2 DM - Uncontrolled E11. Insulin: No blood sugar diagnostic (TRUE METRIX [...] Cervical Cancer Mother Asthma Mother Heart Father [place] x 2 Cancer Father Lung, metastatic to [...] as scheduled. Discussed red flags Deena Ivey APRN.UNDER CUTTING MACHINE OPERATOR documented in this encounterDetwiler Memorial Hospital09-17-2023 Hospital Discharge instructions Additional Instructions Please list the drug category cephalosporins as a allergen from now on. Do not take the cefdinir that was prescribed secondary to your allergy. It will take typically 3 to 5 days for the allergic reaction to resolve and you may continue gnpg-cab-uhkfxlv Benadryl for itch relief if needed. Your urine sample today shows no bacteria to indicate infection but the CT scan does show slight bladder wall thickening with surrounding inflammation which could be the cause of your recurrent pain. Secondary to this follow-up with urology to discuss further testing and treatment options and return to the ER should you have any further concernsWMercy [facility] Work Phone: 1(609) 447-902809-13-2023 Miscellaneous Notes* Telephone Encounter - Sriram Cabrales [...] PCP on Saturday if symptoms persist. Sriram Cabrales RN documented in this encounterDetwiler Memorial Hospital08-16-2023 History of Present illness Narrative* Leila Rubi PA-C - 04/24/2023 1:30 PM EDT Images from [...] Is being followed by MIGUEL Savage, at [facility]. Has bloating and abdominal pain. Currently [...] 02/10/2007 Anxiety Arthritis Asthma 02/10/2007 Centrilobular emphysema ([facility]) Depression Psychiatrist managing (Dr. Bedolla) DM type 2 (diabetes mellitus, type 2) ([facility]) Essential hypertension 05/23/2006 Hemorrhage of gastrointestinal [...] day DX: Insulin: No Use as instructed ketoconazole (NIZORAL) [...] Cervical Cancer Mother Asthma Mother Heart Father [place] x 2 Cancer Father Lung, metastatic to [...] 06/22/2010 right knee arthroscopy- by Dr Dawson ([facility]) PAST SURGICAL HISTORY OF 04/27/2020 low back surgery at [facility];s/p L4 laminectomy, decompression of L4-5 canal [...] present within the thoracic spine. LDCT, 10/2022 [facility] Lung RADS 2 Follow up LDCT [...] necessary. Leila Rubi PA-C documented in this encounterDetwiler Memorial Hospital08-16-2023 History of Present illness Narrative* Lucy Chandra RPFT - 04/24/2023 1:08 PM EDT PULM FUNCTION SMARTBLOCK: Provider: Leila Rubi PA-C Assisting Tech: Lucy Chandra RPFT Spirometry: 1 DLCO: 1 documented in this encounterDetwiler Memorial Hospital07-06-2023 History of Present illness Narrative* [...] 15, 2023 12:08 PM documented in this encounterDetwiler Memorial Hospital07-03-2023 Miscellaneous Notes* Telephone Encounter - Karissa Collier RN - 03/11/2023 2:54 PM EDT Patient requesting ProAor inhaler, if provider agreeable. Script pended for review. Thank you. documented in this encounterDetwiler Memorial Hospital07-03-2023 Miscellaneous Notes* Telephone Encounter - [...] supplies. Karissa Collier RN documented in this encounterDetwiler Memorial Hospital06-02-2023 Miscellaneous Notes* Telephone Encounter - [...] you. Gillian Higginbotham RN documented in this encounterDetwiler Memorial Hospital04-22-[address] Souza [facility] December 29, 2022 11:08pm Note Date/Time December 29, 2022 8:1 6pm [facility] Medical Records Department [address] [place] [address] Emergency Department Summary 12/29/22 MR#: [id number] Acct: [id number] Name: GARLAND DE SANTIAGO Rep #:[id number] : 1960 62 From: Booker Barrett [...] of breath and dyspnea with chest tightness. [facility] Medical History Abdominal pain [...] % (Auto) 55.6 Lymph % (Auto) 35.2 [place] % (Auto) 7.0 Eos % (Auto) 1.5 [...] 21:01 EDT Reading Location ID and State: [address] [place] [address] Tel [phone], Service support , Discharge Plan Triage Chief [...] your Primary Care Provider. Call [facility] ([phone]) or report to the closest Emergency Room. [...] return precaution discussed. All questions were answered. 12/29/228<Electronically signed by Gerald Quintanilla> Cosigner Signature (if applicable): cc: Dr. Willam Estrada MD ~* Signed [facility] Work Phone: [phone]) 568-453704-14-2023 History of Present illness Narrative* Leila Rubi PA-C - 12/21/2022 1:30 PM EDT Patient: Garland De Santiago PCP: Willam Estrada MD CC: COPD/re-establish care HPI: Garland De Santiago 62 year old female current daily smoker, 36 pack years with PMH significant for allergic rhinitis, anxiety, depression, DM, HTN, hyperlipidemia, YARY not compliant with BiPAP, and emphysema. Patient was recently seen in [facility] on 11/21 for cough, SOB, wheezing [...] 02/10/2007 Anxiety Arthritis Asthma 02/10/2007 Centrilobular emphysema ([facility]) Depression Psychiatrist managing (Dr. Bedolla) DM type 2 (diabetes mellitus, type 2) ([facility]) Essential hypertension 05/23/2006 Hemorrhage of gastrointestinal [...] Test blood sugars twice a day DX: . Insulin: No Use as instructed ketoconazole (NIZORAL) [...] Cervical Cancer Mother Asthma Mother Heart Father [place] x 2 Cancer Father Lung, metastatic to [...] 12/13/2011 Colonoscopy repeat 10 years EGD W/O [facility] SPEC VARICIES INJ 02/22/2022 ESOPHAGOGASTRODUODENOSCOPY TRANSORAL DIAGNOSTIC 02/09/2016 EGD INCISE FINGER TENDON SHEATH Right 08/10/2021 Right ring trigger finger release JOINT REPLACEMENT HX LAPS ABD PRTM&OMENTUM DX W/WO SPEC BR/WA SPX Laparoscopy LAPS SURG CHOLECYSTECTOMY W/CHOLANGIOGRAPHY 10/07/2006 LIG/TRNSXJ FLP TUBE ABDL/VAG APPR UNI/BI Tubal ligation PAST SURGICAL HISTORY OF 06/22/2010 right knee arthroscopy- by Dr Dawson ([facility]) PAST SURGICAL HISTORY OF 04/27/2020 low back surgery at [facility];s/p L4 laminectomy, decompression of L4-5 canal [...] present within the thoracic spine. LDCT, 10/2022 [facility] Lung RADS 2 Follow up LDCT [...] tobacco. Enrolled in lung cancer screening at [facility]. Next LDCT 10/2023. 3. Seasonal allergies - ICD9: 477.9, ICD10: J30.2 Follows with [facility] Portions of this documentation were copied and pasted from previous office visit notes in order to provide a cohesive continuity of the history. The note has been reviewed and edited and updated as necessary. Leila Rubi PA-C documented in this encounterDetwiler [facility] Hospital04-11-2023 Instructions* Patient Instructions* Willam Estrada [...] inhaler instead of Breo. documented in this encounterDetwiler [facility] Hospital04-11-2023 History of Present illness Narrative* Willam Estrada MD - 12/18/2022 6:40 PM EDT This note was created using Orbiterter. Subjective Garland De Santiago is a 62 [...] 02/10/2007 Anxiety Arthritis Asthma 02/10/2007 Centrilobular emphysema ([facility]) Depression Psychiatrist managing (Dr. Bedolla) DM type 2 (diabetes mellitus, type 2) ([facility]) Essential hypertension 05/23/2006 Hemorrhage of gastrointestinal [...] Encounter Diagnosis ICD-10-CM 1. COPD with exacerbation (HCC) J44.1 CONSULT TO PULM/CRITICAL CARE 2. Itching L29.9 3. Sinobronchitis J32.9 J40 Improved; no need for another antibiotic. ENT for evaluation. Referred to pulmonology as well 4. Recurrent major depressive disorder, in remission (HCC) F33.40 Stable on Zoloft. Above issues addressed [...] the date of the service which included mxes-gn-ruds patient care, completing clinical documentation, performing a medically appropriate examination, counseling and educating the patient/family/caregiver, and ordering medications, tests, or procedures. Willam Estrada MD documented in this encounterDetwiler [facility] Hospital04-11-2023 Miscellaneous Notes* Telephone Encounter - [...] evening. Ashley Hernandez RN documented in this encounterDetwiler Memorial Hospital04-07-2023 Miscellaneous Notes* Telephone Encounter - [...] 11:26 AM EDT See telephone encounter from [facility] last pm, pt calling with an update. Pt states she got up this am & ate a piece of toast with butter & took her morning meds. 4 hours later (now) she reports her blood sugar is 329. Pt states last night after speaking to [facility] she took another glipizide as instructed (3 for the day)& her blood sugar went down to 196. Pt states she is on day 5 of antibiotics & prednisone for bronchitis. She states she is not wheezing as bad as she was but still has productive cough, sinus headache & chest tightness. Pulse ox 98%. Please advise. Fabiana Hernandez LPN documented in this encounterDetwiler Memorial Hospital04-04-2023 Miscellaneous Notes* Telephone Encounter - [...] na Protocols used: Diabetes - High Blood Fzicx-MNJPT-JG documented in this encounterDetwiler Memorial Hospital04-03-2023 Miscellaneous Notes* Telephone Encounter - [...] you. Oxana Soria LPN documented in this encounterDetwiler Memorial Hospital04-03-2023 Miscellaneous Notes* Telephone Encounter - Nat Malik LPN - 12/10/2022 10:33 AM EDT Patient calling she took her last pill last night. She was calling to make sure request got sent toPCP, rx goes to [facility]. Please advise Patient has been identified [...] you. Nat Malik LPN documented in this encounterDetwiler Memorial Hospital03-29-2023 History of Present illness Narrative* Willam Estrada MD - 12/05/2022 4:09 PM EDT This note was created using Orbiterter. Subjective Garland De Santiago is a 62 [...] sore throat around 11/17. Seen in [facility]. Doxy for 10 days--did not [...] DM type 2 (diabetes mellitus, type 2) ([facility]) Essential hypertension 05/23/2006 Hemorrhage of gastrointestinal [...] neuropathy, without long-term current use of insulin ([facility]) E11.40 HGB A1C COMP METABOLIC PANEL ALBUMIN/CREAT RATIO RND UR 3. Essential hypertension I10 COMP METABOLIC PANEL CBC 4. Encounter for long-term current use of medication Z79.899 COMP METABOLIC PANEL CBC 5. Mixed hyperlipidemia E78.2 LIPID PANEL BASIC 6. Chronic obstructive pulmonary disease, unspecified COPD type ([facility]) J44.9 ZAJHD-2-SRRXOVJAZ BL 7. Neuropathy G62.9 gabapentin (NEURONTIN) 300 mg capsule DISCONTINUED: gabapentin (NEURONTIN) 300 mg capsule 8. Stage 2 moderate COPD by GOLD classification ([facility]) J44.9 fluticasone- vilanterol (BREO ELLIPTA) 200-25 [...] the date of the service which included apuf-vf-oixg patient care, completing clinical documentation, obtaining and/or reviewing separately obtained history, performing a medically appropriate examination, counseling and educating the patient/family/caregiver, and ordering medications, tests, or procedures. Willam Estrada MD documented in this encounterDetwiler Memorial Hospital03-28-2023 History of Present illness Narrative* [...] made with patient ACTION TAKEN: Based on assistant case manager, the following disposition is advised: SYMPTOMS PRESENT NOT SEVERE: No action required - Continue outreach / Phone Call - LISA Education Ordered -: No documented in this encounterDetwiler Memorial Hospital03-20-2023 Miscellaneous Notes* Addendum Note - Willam Estrada MD - 11/26/2022 7:23 PM EDTAddended by: WILLAM ESTRADA on: 11/26/2022 07:23 PM Modules accepted: Orders documented in this encounterDetwiler Memorial Hospital03-20-2023 History of Present illness Narrative* Willam Estrada MD - 11/26/2022 7:21 PM EDT Sent RX that was given from [facility] in 2017 after Robitussin AC did not help with cough. If not covered, can try the Robitussin AC again. The following approved medication requests have been transmitted electronically. Requested Prescriptions Signed Prescriptions Disp Refills Cdeepjxskpbqotu-Yfputghcv-CY (BROMFED DM) 2-30-10 mg/5 mL syrup 240 [...] made with patient ACTION TAKEN: Based on assistant case manager, the following disposition is advised: SYMPTOMS PRESENT NOT SEVERE: No action required - Continue outreach / Phone Call - LISA Education Ordered -: No documented in this encounterDetwiler Memorial Hospital03-15-2023 Miscellaneous Notes* Telephone Encounter - [...] go to express care. documented in this encounterDetwiler Memorial Hospital03-15-2023 History of Present illness Narrative* Deena Ivey APRN.UNDER CUTTING MACHINE OPERATOR - 11/21/2022 4:36 PM EDT This note was created using Clean Membranes. Subjective Garland De Santiago is a 62 [...] history is provided by the patient. No quality assurance director was used. Cough This is a new [...] DM type 2 (diabetes mellitus, type 2) ([facility]) Essential hypertension 05/23/2006 Hemorrhage of gastrointestinal [...] 06/22/2010 right knee arthroscopy- by Dr Dawson ([facility]) PAST SURGICAL HISTORY OF 04/27/2020 low back surgery at [facility];s/p L4 laminectomy, decompression of L4-5 canal [...] by mouth. Dr. Caceres, unsure of dose FAMILY HISTORY Problem Relation Age of Onset Hypertension Mother history of glaucoma Cervical Cancer Mother Asthma Mother Heart Father [place] x 2 Cancer Father Lung, metastatic to [...] in 5 to 7 days. Deena Ivey APRN.CNP documented in this encounterDetwiler Memorial Hospital02-01-2023 History of Present illness Narrative* [...] 10, 2022 3:38 PM documented in this encounterDetwiler Memorial Hospital01-30-2023 Instructions* Patient Instructions* Willam Estrada [...] your usual activities immediately. documented in this encounterDetwiler Memorial Hospital01-30-2023 History of Present illness Narrative* Willam Estrada MD - 10/08/2022 10:40 AM EST Images from the original note were not included. This note was created using Sophia Learningriter. Subjective Garland De Santiago is a 62 [...] DM type 2 (diabetes mellitus, type 2) ([facility]) Essential hypertension 05/23/2006 Hemorrhage of gastrointestinal [...] and assume there are 5 lumbar-type vertebrae. Boring Mill Set Up Operator: OLIVE Transcribe Date/Time: Sep 27 2022 5:51P Dictated by : RICHARD KAPOOR MD This examination was interpreted and the report reviewed and electronically signed by: RICHARD KAPOOR MD on Sep 27 2022 6:01PM EST Results-Findings * * *Final Report* * * DATE OF EXAM: Sep 27 2022 3:20PM WRM [id number] - MRI LUMBAR SPINE WO IVCON [...] validated after tries taking to pharmacy as shenilam planned. - Goal of BP <130/80 - [facility] 2. Upper back pain - [...] Given smoking history, and - [facility] 4. Pain in both lower extremities - ICD9: 729.5, ICD10: M79.604, M79.605 Further evaluation and treatment as indicated. Discussed could be neuropathic but need to rue out vascular causes. - [facility] 5. Foot pain, bilateral - ICD9: 729.5, ICD10: M79.671, M79.672 As noted above - [facility] 6. Cigarette smoker - ICD9: 305.1, ICD10: F17.210 - Cessation encouraged. - Physiologic and physical aspects of tobacco addiction as well as strategies for quitting were discussed. - Counseling was given focusing on the harmful effects of this addiction especially given the patient's medical condition(s) which will be worsened because of the chemicals in tobacco. - [facility] 7. Type 2 diabetes mellitus with diabetic neuropathy, without long-term current use of insulin (HCC) - ICD9: 250.60, 357.2, ICD10: E11.40 poorly controlled - Continue current medications - Needs to keep working on diet and exercise with lifestyle changes for effective weight loss as well as control of DM, and control of BP and lipids. - [facility] 8. Asymptomatic postmenopausal status - [...] intervention Willam Estrada MD documented in this encounterDetwiler Memorial Hospital01-23-2023 Miscellaneous Notes* Telephone Encounter - Cresencio Sharp Ma - 10/01/2022 9:40 AM EST Unable to reach after several attempts. Patient active on [employer], message sent * Telephone Encounter - Heather Giang - 09/25/2022 12:27 PM EST Called pt. LVM to schedule Urology consult * Telephone Encounter - Renu Barahona - 09/24/2022 8:40 AM ESTSummary: Consult to Urology 2nd Attempt: Called PT to schedule consult to urology, LVM for PT to call back and ask for a director of child welfare services. ThanksRenu PSS * Telephone Encounter - Renu Barahona - 09/21/2022 9:11 AM ESTSummary: Consult to Urology 1st Attempt: Called PT to schedule consult to urology, LVM for PT to call back and ask for a director of child welfare services. Thanks, Renu Barahona PSS * Telephone Encounter - Leilani Ramirez APRN.CNS - 09/21/2022 7:13 AM EST There is an active urology consult. Use to schedule with alternate provider, [facility] provider if willing * Telephone Encounter - Brooklyn Sánchez - 09/20/2022 2:[address] consult for urology. Brooklyn PSS * Telephone Encounter - Mirlande Amin LPN - 09/20/2022 2:37 PM EST PSS please call Patient to schedule Consult to Urology. Per below: [facility] calls and state that they received [...] medicaid. Ashley Hernandez RN documented in this encounterDetwiler Memorial Hospital01-19-2023 History of Present illness Narrative* Rebecca Howard RT(R) - 09/27/2022 3:00 PM EST Radiology [...] IV DATA: Not applicable SIGNED BY: RT Nelda(Da) September 27, 2022 3:00 PM documented in this encounterDetwiler Memorial Hospital01-14-2023 History of Present illness Narrative* [...] made with patient ACTION TAKEN: Based on assistant case manager, the following disposition is advised: SYMPTOMS PRESENT NOT SEVERE: No action required - Continue outreach / Phone Call - LISA Education Ordered -: No documented in this encounterDetwiler Memorial Hospital01-11-2023 Miscellaneous Notes* Telephone Encounter - Sriram Cabrales RN - 09/19/2022 4:24 PM EST Patient says she received call from [facility] to make a Urology appointment this afternoon. She wants to confirm referral was sent to [facility], Dr. Pinto . Sriram Cabrales RN * Telephone Encounter - Derick Goddard LPN - 09/19/2022 3:41 PM EST Referral and records faxed to [facility] as requested. * Telephone Encounter - Allegra Berumen APRN.CNP - 09/19/2022 2:56 PM EST Referral placed, [...] gotten worse.Asking pcp to send referral to [facility]. Patient has already spoke to them and they will see her. Does not want to travel out of town to see a Urologist. documented in this encounterDetwiler Memorial Hospital01-09-2023 Miscellaneous Notes* Letter - Mammography Coordinator - 09/17/2022 8:08 AM EST September 17, 2022 PID: [id number] Garland De Santiago [facility] [address] [facility] [address] [place] [address] Dear Ms. De Santiago, We are pleased [...] report will be kept on [facility] at [facility] as part of your permanent medical record and are available for your continuing care. Thank you for allowing us to help in meeting your health care needs. Sincerely, Dr. Tay Interpreting Radiologist [facility] (Normal over 40) documented in this encounterDetwiler Memorial Hospital01-06-2023 History of Present illness Narrative* Alpa Mack, RT(R) - 09/14/2022 2:50 PM EST Radiology [...] 14, 2022 2:33 PM documented in this encounterDetwiler Memorial Hospital12-30-2022 Miscellaneous Notes* Telephone Encounter - [...] EST Pt calling to follow up on [employer] message 08/09/2022 regarding orders for the low dose CT lung cancer screening. She does not drive out of town and is asking that the order be sent to [facility]. Vikki Oliveira documented in this encounterDetwiler Memorial Hospital12-29-2022 Miscellaneous Notes* Telephone Encounter - Willam Estrada MD - 09/06/2022 12:08 AM EST Noted Patient has not been to UC or EC Follow up in office as needed * Telephone Encounter - Derick Goddard LPN - 09/04/2022 4:15 PM EST PATIENT NOTIFIED OF SAME. Patient states this afternoon she is starting to feel sick again with COVID symptoms. Temp 99.7. Nasal congestion/drainage. Sore throat. States will find someone to get the medication. Suggest patient have a virtual visit with [facility] on line or My Chart virtual [...] advise patient. Pended medication. documented in this encounterDetwiler Memorial Hospital12-17-2022 History of Present illness Narrative* [...] 06/22/2010 right knee arthroscopy- by Dr Dawson ([facility]) PAST SURGICAL HISTORY OF 04/27/2020 low back surgery at [facility];s/p L4 laminectomy, decompression of L4-5 canal stenosis with bilateral L4,L5 root foraminotomies TONSILLECTOMY PRIMARY/SECONDARY <AGE 12 Tonsillectomy VAGINAL HYSTERECTOMY UTERUS 250 GM/< Hysterectomy, vaginal for menorrhagia Family History FAMILY HISTORY Problem Relation Age of Onset Hypertension Mother history of glaucoma Cervical Cancer Mother Asthma Mother Heart Father [place] x 2 Cancer Father Lung, metastatic to [...] 2 DM - Uncontrolled .65 Insulin: No blood sugar diagnostic (TRUE METRIX [...] to the ER if worsening. Sent her juniord to [employer] 2. Severe persistent asthma, unspecified whether complicated - ICD9: 493.90, ICD10: J45.50 Mild intermittent Asthma stable - Avoidance of triggers recommended 3. Type 2 diabetes mellitus with diabetic neuropathy, without long-term current use of insulin (HCC) - ICD9: 250.60, 357.2, ICD10: E11.40 Her sugars are fairly well controlled. Daphney Pro MD documented in this encounterDetwiler Memorial Hospital12-16-2022 Miscellaneous Notes* Telephone Encounter - [...] health visit. Assisted patient with downloading my [facility] juan manuel. GO TO THE EMERGENCY ROOM OR CALL 911 IF: * You develop any new symptoms * Your condition worsens * You are concerned or anxious about your condition for any other reason. If you have any questions, you can call Nurse rental salesperson back. documented in this [facility]12-16-2022 Miscellaneous Notes* Telephone Encounter - Divina Wright RN - 08/24/2022 5:17 PM EST Reason for Call:Covid sx and tested positive on home test Outcome:Recommended to go to ED now and will get ride to [facility]. Reason for Disposition Chest pain or [...] wheezing and productive cough- using inhaler 8. CTLZFH-KHWL-HVNQX: worse 9. HIGH RISK DISEASE: Asthma, immune compromised, DM, COPD, HTN 10. VACCINE: yes 11. BOOSTER: 3 rd booster Moderna on Saturday08/20/22 12. : n/a 13. OTHER SYMPTOMS: headache, sore throat, fatigue and body aches 14. O2 SATURATION MONITOR: 97 % pulse ox during call Protocols used: Coronavirus (COVID-19) Diagnosed or Brtkrxnvd-RKCCQ-HL documented in this encounterDetwiler Memorial Hospital11-29-2022 Instructions* Patient Instructions* Willam Estrada [...] May keep taking Metformin. documented in this encounterDetwiler Memorial Hospital11-29-2022 History of Present illness Narrative* Willam Estrada MD - 08/07/2022 3:32 PM EST Images from the original note were not included. This note was created using Clean Membranes. Subjective Garland De Santiago is a 62 [...] 06/22/2010 right knee arthroscopy- by Dr Dawson ([facility]) PAST SURGICAL HISTORY OF 2019 low back surgery at [facility] TONSILLECTOMY PRIMARY/SECONDARY <AGE 12 Tonsillectomy VAGINAL [...] indicated. Willam Estrada MD documented in this encounterDetwiler Memorial Hospital11-28-2022 Miscellaneous Notes* Telephone Encounter - [...] advise. Derick Goddard LPN documented in this encounterDetwiler Memorial Hospital11-11-2022 Miscellaneous Notes* Telephone Encounter - Lori Silver RN - 07/20/2022 3:44 PM EST Alyce with [facility] called in to see if Pt was on a Statin. She was notified that Pt os not. She asked if it was on her allergy list, and it is not. documented in this encounterDetwiler Memorial Hospital11-07-2022 History of Present illness Narrative* [...] 16, 2022 3:04 PM documented in this encounterDetwiler Memorial Hospital11-03-2022 Miscellaneous Notes* Telephone Encounter - [...] you. Nat Malik LPN documented in this encounterDetwiler Memorial Hospital10-31-2022 Miscellaneous Notes* Telephone Encounter - Karissa Collier RN - 07/09/2022 1:40 PM EDT Patient returned call and given provider's message below. Patient transferred to director of child welfare services to schedule ultrasounds. Wes Collier RN * [...] care Diana Andres APRN.CNP documented in this encounterDetwiler Memorial Hospital10-27-2022 History of Present illness Narrative* Diana Andres APRN.CNP - 07/05/2022 1:36 PM EDT CC: Patient presents with: Recheck: Follow up, thrush in mouth HPI Garland De Santiago is a 62 [...] 06/22/2010 right knee arthroscopy- by Dr Dawson ([facility]) PAST SURGICAL HISTORY OF 2019 low back surgery at [facility] TONSILLECTOMY PRIMARY/SECONDARY <AGE 12 Tonsillectomy VAGINAL [...] Cervical Cancer Mother Asthma Mother Heart Father [place] x 2 Cancer Father Lung, metastatic to [...] plan. Diana Andres APRN.CNP documented in this encounterDetwiler Memorial Hospital10-26-2022 Miscellaneous Notes* Telephone Encounter - Diana Andres APRN.CNP - 07/04/2022 7:12 PM EDT Noted. Will review in appointment. Thank you Diana Andres APRN.CNP * Telephone Encounter - Nat Malik LPN - 07/04/2022 1:08 PM EDT Patient calling said she was in [facility] ER 07/02 her blood sugars was in [...] toast with butter. Scheduled patient appt with COUTURIERE 07/05 at 120 pm, she has seen Diana Andres few times recently, requesting her again. documented in this encounterDetwiler Memorial Hospital10-24-2022 History of Present illness Narrative* Diana Andres APRN.CNP - 07/02/2022 11:54 AM EDT P CC: [...] DM type 2 (diabetes mellitus, type 2) ([facility]) Essential hypertension 05/23/2006 Hemorrhage of gastrointestinal [...] 12/13/2011 Colonoscopy repeat 10 years EGD W/O [facility] SPEC VARICIES INJ 02/22/2022 ESOPHAGOGASTRODUODENOSCOPY TRANSORAL DIAGNOSTIC 02/09/2016 EGD INCISE FINGER TENDON SHEATH Right 08/10/2021 Right ring trigger finger release JOINT REPLACEMENT HX LAPS ABD PRTM&OMENTUM DX W/WO SPEC BR/WA SPX Laparoscopy LAPS SURG CHOLECYSTECTOMY W/CHOLANGIOGRAPHY 10/07/2006 LIG/TRNSXJ FLP TUBE ABDL/VAG APPR UNI/BI Tubal ligation PAST SURGICAL HISTORY OF 06/22/2010 right knee arthroscopy- by Dr Dawson ([facility]) PAST SURGICAL HISTORY OF 2019 low back surgery at [facility] TONSILLECTOMY PRIMARY/SECONDARY <AGE 12 Tonsillectomy VAGINAL [...] Cervical Cancer Mother Asthma Mother Heart Father [place] x 2 Cancer Father Lung, metastatic to [...] plan. Diana Andres APRN.CNP documented in this encounterDetwiler Memorial Hospital10-19-2022 History of Present illness Narrative* [...] DM type 2 (diabetes mellitus, type 2) ([facility]) Essential hypertension 05/23/2006 Hemorrhage of gastrointestinal [...] 12/13/2011 Colonoscopy repeat 10 years EGD W/O [facility] SPEC VARICIES INJ 02/22/2022 ESOPHAGOGASTRODUODENOSCOPY TRANSORAL DIAGNOSTIC 02/09/2016 EGD INCISE FINGER TENDON SHEATH Right 08/10/2021 Right ring trigger finger release JOINT REPLACEMENT HX LAPS ABD PRTM&OMENTUM DX W/WO SPEC BR/WA SPX Laparoscopy LAPS SURG CHOLECYSTECTOMY W/CHOLANGIOGRAPHY 10/07/2006 LIG/TRNSXJ FLP TUBE ABDL/VAG APPR UNI/BI Tubal ligation PAST SURGICAL HISTORY OF 06/22/2010 right knee arthroscopy- by Dr Dawson ([facility]) PAST SURGICAL HISTORY OF 2019 low back surgery at [facility] TONSILLECTOMY PRIMARY/SECONDARY <AGE 12 Tonsillectomy VAGINAL [...] Cervical Cancer Mother Asthma Mother Heart Father [place] x 2 Cancer Father Lung, metastatic to [...] plan. Diana Andres APRN.CNP documented in this encounterDetwiler Memorial Hospital10-19-2022 Miscellaneous Notes* Telephone Encounter - Diana Andres APRN.CNP - 06/27/2022 10:53 AM EDT Will review at appointment Diana Andres APRN.CNP * Telephone Encounter - Lori Silver RN - 06/27/2022 9:20 AM EDT Pt called and is notified of providers message and instructions. Pt voices understanding. Pt scheduled with Diana Andres COUTURIERE today at 440 pm, will get chest [...] has chest congestion. Patient was seen at [facility] on 06/22/2022. Patient was prescribed Macrobid [...] advise, Ashley Hernandez RN documented in this encounterDetwiler Memorial Hospital10-18-2022 History of Present illness Narrative* [...] made with patient ACTION TAKEN: Based on assistant case manager, the following disposition is advised: SYMPTOMS PRESENT NOT SEVERE: No action required - Continue outreach / Phone Call documented in this encounterDetwiler Memorial Hospital10-14-2022 History of Present illness Narrative* Rufus Cruz PA-C - 06/22/2022 3:44 PM EDT This note was created using Sophia Learning[employer]. Subjective Garland De Santiago is a 62 [...] DM type 2 (diabetes mellitus, type 2) ([facility]) Essential hypertension 05/23/2006 Hemorrhage of gastrointestinal [...] 12/13/2011 Colonoscopy repeat 10 years EGD W/O [facility] SPEC VARICIES INJ 02/22/2022 ESOPHAGOGASTRODUODENOSCOPY TRANSORAL DIAGNOSTIC 02/09/2016 EGD INCISE FINGER TENDON SHEATH Right 08/10/2021 Right ring trigger finger release JOINT REPLACEMENT HX LAPS ABD PRTM&OMENTUM DX W/WO SPEC BR/WA SPX Laparoscopy LAPS SURG CHOLECYSTECTOMY W/CHOLANGIOGRAPHY 10/07/2006 LIG/TRNSXJ FLP TUBE ABDL/VAG APPR UNI/BI Tubal ligation PAST SURGICAL HISTORY OF 06/22/2010 right knee arthroscopy- by Dr Dawson ([facility]) PAST SURGICAL HISTORY OF 2019 low back surgery at [facility] TONSILLECTOMY PRIMARY/SECONDARY <AGE 12 Tonsillectomy VAGINAL [...] Cervical Cancer Mother Asthma Mother Heart Father [place] x 2 Cancer Father Lung, metastatic to [...] rest Rufus Cruz PA-C documented in this encounterDetwiler Memorial Hospital10-03-2022 Miscellaneous Notes* Telephone Encounter - Mirlande Amin CHRIS - 06/11/2022 8:42 PM EDT Patient has [...] patient. Faye Morales Pss documented in this encounterDetwiler Memorial Hospital09-06-2022 History of Present illness Narrative* Sherie Kay RN - 05/15/2022 2:30 PM EDT INSIGHT CDM ESCALATION Provider Action/FYI: LMOM Message received via: InSight - No contact made with patient Left Message for PatientJordan Martinez my name is Sherie Olsen RN from the [facility]. I amcalling about your responses to our [employer] questionnaire. Sorry I am not able to speak with you. If you have a problem that needs to be addressed by your physician please contact your PCP office--End Outreach documented in this encounterDetw[facility]08-30-2022 History of Present illness Narrative* Steven Faye, PT - 05/08/2022 3:56 PM EDT Episode Visit Count: 5 Therapist That Will Oversee The Plan Of Care: Steven Faye Start of Care Date: 04/10/22 Onset Date: 01/08/21 Plan of Care Certification Date: 05/08/22 Next Certification Due Date: 06/12/22 Patient Identified by Name and Date of : Yes REHABILITATION AND SPORTS THERAPY PHYSICAL THERAPY PROGRESS REPORT PLAN OF CARE UPDATE: Assessment: Garland Seun De Santiago demonstrates difficulty with pain with [...] 15 sec each leg - Not assessed [place] in home exercise program. - MET so [...] Patient to be seen for Therapeutic exercise (99178);Neuromuscular re-education (18495);Manual therapy (80176);Self-senior care management (57210);Patient/Family/Caregiver Education PLAN FOR NEXT VISIT: Balance training [...] 40 Steven Faye PT documented in this encounterDetwiler [facility]08-11-2022 History of Present illness Narrative* [...] 60 Steven Faye PT documented in this encounterDetwiler [facility]08-09-2022 History of Present illness Narrative* [...] 39 Steven Faye PT documented in this encounterDetwiler [facility] Hospital08-03-2022 Miscellaneous Notes* Telephone Encounter - [...] notify patient. Chelsie Cruz documented in this encounterDetwiler [facility] Hospital08-02-2022 History of Present illness Narrative* Steven Faye, PT - 04/10/2022 4:45 PM EDT Episode [...] SL stance for 15 sec each leg [place] in home exercise program. Increased strength of LE to 5/5 for improved lumbo-pelvic stability and decreased back pain Pt will be able to maintain good posture for 80% or greater of a treatment session Planned Interventions, Frequency, and Duration: Current Frequency: 2x/week Duration: 4 weeks Total Number of Visits Planned: 8 Planned Treatment Interventions: Therapeutic exercise (72726);Neuromuscular re- education (73641);Manual therapy (20957);Self-senior care management (42770);Patient/Family/Caregiver Education PLAN FOR NEXT VISIT: Progress TA [...] Onset: Back Pain: Pain Pain Level: 0 (7/10) Pain Location: Low Back/Lumbar Spine - Left;Low [...] 45 Steven Faye PT documented in this encounterDetwiler [facility] Hospital07-29-2022 History of Present illness Narrative* Willam Estrada MD - 04/06/2022 2:42 PM EDT This note was created using Sophia Learningriter. Subjective Garland De Santiago is a 61 [...] have not helped. Gold Celis for feet, Vaseline, Jergins. Reviewed that had spinal surgery 1 to [...] THERAPY Willam Estrada MD documented in this encounterDetwiler [facility] Hospital07-05-2022 History of Present illness Narrative* Jennifer Castle RT(R) - 03/13/2022 12:10 PM EDT Radiology [...] 13, 2022 12:21 PM documented in this encounterDetwiler [facility] Hospital07-01-2022 History of Present illness Narrative* [...] FOLLOW UP VISIT - ENDOSCOPY NAME: Garland De Santiago CLINIC NO.: [id number] DATE OF SERVICE: 03/09/2022 : 1960 REFERRING [...] which included preparing to see the patient, [id number] patient care, completing clinical documentation, obtaining and/or reviewing separately obtained history, counseling and educating the patient/family/caregiver, independently interpretin g results (not separately reported) and communicating results to the patient/family/caregiver. Lori Matamoros PA-C documented in this encounterDetwiler [facility] Hospital06-27-2022 Miscellaneous Notes* Telephone Encounter - Itzel Foster MA - 03/05/2022 1:14 PM EDT Patient scheduled for F/U with [facility] 03/09/22. Itzel Foster MA * Telephone Encounter - Leila Hale - 02/28/2022 9:29 AM EDT Called patient to R/S on 03/19 for A.. No answer. Left message on voicemail to R/S. .Leila Hale * Telephone Encounter - Tesha Posey - 02/09/2022 3:10 PM EDT 02-22-2022 COLON EGD LODI documented in this encounterDetwiler [facility] Hospital06-17-2022 Miscellaneous Notes* Telephone Encounter - [...] pharmacy. Cresencio Sharp Ma documented in this encounterDetwiler Memorial Hospital06-16-2022 History and physical note * [...] was evaluated at the gastroenterology office at [facility]. The following workup was done (information obtained from [facility]) 12/22/2021 - CT scan - liver [...] 06/22/2010 right knee arthroscopy- by Dr Dawson ([facility]) PAST SURGICAL HISTORY OF 2019 low back surgery at [facility] TONSILLECTOMY PRIMARY/SECONDARY <AGE 12 Tonsillectomy VAGINAL [...] Test blood sugars twice a day DX: E11 Insulin: No Use as instructed metFORMIN ER [...] Cervical Cancer Mother Asthma Mother Heart Father [place] x 2 Cancer Father Lung, metastatic to bone, age 77 other (aortic aneurysm) Father 50 Colon Polyps Sister Thyroid Sister Hypothyroidism Thyroid Sister Cancer Sister Lung, LLL. Resected. No Known Problems Daughter No Known Problems Son The review of systems data was entered by the nurse and reviewed by la Nursing Notes: Tex Harris LPN 02/09/2022 2:27 [...] bloating (M62.08) Rectus diastasis documented in this encounterDetwiler Memorial Hospital06-16-2022 Miscellaneous Notes* Brief Op Note - Patti Manrique MD - 02/22/2022 12:30 PM EDT BRIEF OPERATIVE NOTE SURGERY DATE: 02/22/2022 Incision/Procedure Start Time: 12:42 Incision Close/Procedure End Time: 13:15 (cecal intubation time 13:00) Surgeon(s)/Proceduralist(s) and Carpentry Teacher(s): Burton Procedures: EGD with biopsies Colonoscopy with cold snare polypectomy Anesthesia: MAC Findings: transverse colon < 1cm polyp, irregular GE junction, mild gastritis Estimated Blood Loss: minimal Specimens: mucosal biopsies of GE junction, mucosal biopsies of antrum, transverse colon polyp Complications: None Preop Diagnosis: screening for colon cancer, epigastric abdominal pain Postop Diagnosis: same SIGNATURE: Patti Manrique MD PATIENT NAME: Garland Kohli Anyi DATE: February 22, 2022 TIME: 1:17 PM documented in this encounterDetwiler [facility] Hospital06-04-2022 History of Present illness Narrative* [...] was evaluated at the gastroenterology office at [facility]. The following workup was done (information obtained from [facility]) 12/22/2021 - CT scan - liver [...] 06/22/2010 right knee arthroscopy- by Dr Dawson ([facility]) PAST SURGICAL HISTORY OF 2019 low back surgery at [facility] TONSILLECTOMY PRIMARY/SECONDARY <AGE 12 Tonsillectomy VAGINAL [...] Cervical Cancer Mother Asthma Mother Heart Father [place] x 2 Cancer Father Lung, metastatic to bone, age 77 other (aortic aneurysm) Father 50 Colon Polyps Sister Thyroid Sister Hypothyroidism Thyroid Sister Cancer Sister Lung, LLL. Resected. No Known Problems Daughter No Known Problems Son The review of systems data was entered by the nurse and reviewed by la Nursing Notes: Tex Harris LPN 02/09/2022 2:27 [...] to Clinic: The patient is scheduled at [facility] on February 22 for upper and lower endoscopies. . Medical Decision Making: Problems: Low: Acute, uncomplicated illness or injury Data: Unique source(s) for external note(s) reviewed: 1 Risk: Low: Low risk from testing/treatment Medical Decision Making Level: 3 - Low Patti Manrique MD documented in this encounterDetwiler [facility] Hospital06-03-2022 Instructions* Patient Instructions* Patti Manrique [...] If you do not have a responsible bobtail driver (family member or friend) with you [...] your exam. 3 08/2019 documented in this encounterDetwiler Memorial Hospital06-03-2022 Nurse Note* Tex HarrisCHRIS - 02/09/2022 2:25 PM EDT REVIEW OF [...] 2011 Tex Harris LPN documented in this encounterDetwiler Memorial Hospital05-31-2022 History of Present illness Narrative* Felipe Jolly APRN.UNDER CUTTING MACHINE OPERATOR - 02/06/2022 2:31 PM EDT Subjective HPI [...] she is currently under this care of [facility] GI specialist. States she is currently under the care of [facility] for bloating/abdominal pain. Patient states she did [...] 06/22/2010 right knee arthroscopy- by Dr Dawson ([facility]) PAST SURGICAL HISTORY OF 2019 low back surgery at [facility] TONSILLECTOMY PRIMARY/SECONDARY <AGE 12 Tonsillectomy VAGINAL [...] Test blood sugars twice a day DX: E11 Insulin: No Use as instructed metFORMIN ER [...] Cervical Cancer Mother Asthma Mother Heart Father [place] x 2 Cancer Father Lung, metastatic to [...] of care. This note was generated using Brighter.com software. It may contain errors in wording, punctuation, or spelling. Felipe Jolly APRN.HEIDY documented in this encounterDetwiler Memorial Hospital05-31-2022 Miscellaneous Notes* Telephone Encounter - Odilia Costello [facility] - 02/06/2022 10:17 AM EDT Pharmacy [facility] Rewinder Operator Outreach Patient completed [employer] Rewinder Operator questionnaire; notification routed to Pharmacy pool for follow-up. Garland tyson Medication question(s) regarding: Medication Reconciliation Review Patient [...] information discussed today. I encouraged her to contactPCP office and/or me with any questions or concerns. Follow up: Routine PCP follow up 04/06/22 Time spent: 13 minutes Odilia Costello RPh 02/06/2022, 10:18 AM documented in this encounterDetwiler Memorial Hospital05-12-2022 History of Present illness Narrative* Leila Rubi PA-C - 01/18/2022 2:38 PM EDT [facility] [place], 01/18/2022: Name: Garland De Santiago : 1960 [...] and weekly immunotherapy per Dr. Salazar at [facility]. No dyspnea at rest. Exertional dyspnea is a little worse since last OV. No lower extremity edema. Describes mid-sternal chest burning. Was evaluated by cardiology (Dr. Villegas) at [facility]. Has echocardiogram and stress test scheduled next [...] / Diagnostic Studies: Low-dose chest [facility] from [facility]: Mild upper lobe emphysema Coronary artery [...] she sees any benefits. Allergy immunotherapy for [facility]. - FLUTICASONE FUROATE 200 MCG-VILANTEROL 25 MCG/DOSE [...] answers. Leila Rubi PA-C documented in this encounterDetwiler Memorial Hospital05-03-2022 History of Present illness Narrative* Willam Estrada MD - 01/09/2022 2:05 PM EDT This note was created using Orbiterter. Subjective Garland De Santiago is a 61 year old female. Patient presents with: Hematuria SUBJECTIVE: Garland De Santiago is a 61 year old year old lady here today for follow up appointment for review ofmedical conditions--hematuria and urinary bladder pain after urination. Frequency and urgency several times an hour. Only one other ladder infection in her life before. Was dark blood starting today.Dubach when wipes after urinating. Also noted sediment [...] 02/10/2007 Anxiety Arthritis Asthma 02/10/2007 Centrilobular emphysema ([facility]) Depression Psychiatrist managing (Dr. Bedolla) DM type 2 (diabetes mellitus, type 2) ([facility]) Essential hypertension 05/23/2006 Hemorrhage of gastrointestinal [...] Test blood sugars twice a day DX: E11 Insulin: No Use as instructed metFORMIN ER [...] well as strategies for quitting were discussed. Willma Estrada MD documented in this encounterDetwiler Memorial Hospital04-11-2022 History of Present illness Narrative* Kimmy Mariscal RN - 12/18/2021 11:41 AM EDT [employer] [facility] Enrollment Provider Action/FYI: Enrolled in program via smartphone. Patient referred by: [facility] Shahla Contact made with patient: Yes - Patient identified by name and . Discussed care with patient Juan this is Kimmy Mariscal RN and I am calling from Willam sEtrada MD office at the [facility]. I am a RN Color Maker Dyer with our [employer] Chronic Disease Management program. [...] few questions once a week through your [employer] account. It will automatically show up for [...] goal align with programs offered at the [facility]? No Patient accepts career discovery teacher Thank you for your time today. I am excited to work together in managing your health! You will receive information on next steps through your [employer] account, and I will check back within a few weeks to ensure you have all that you need to use the program successfully. (Place name in care team and assign [employer] Rewinder Operator questionnaire) Most people know what to do to become healthier, yet struggle to put it into action on their own.Itcan be hard to maintain a healthy lifestyle, especially when life is so stressful. Can we connect you with a [facility] Health Clinical Academic Allergist to find a program that could help you meet your goals? No Closing: Patient accepts career discovery teacher Thank you for your time today. I am excited to work together in managing your health! You will receive information on next steps through your [employer] account, and I will check back within a few weeks to ensure you have all that you need to use the program successfully. (Place name in care team and assign [employer] Rewinder Operator questionnaire) documented in this encounterDetwiler Memorial Hospital04-06-2022 History of Present illness Narrative* Kimmy Mariscal RN - 12/13/2021 4:12 PM EDT PRIMARY CARE COORDINATION QUICK NOTE Provider Action/FYI Insight intro message sent. Patient identified by name and date . documented in this encounterDetwiler Memorial Hospital04-01-2022 Miscellaneous Notes* Telephone Encounter - Keshia Diaz LPN - 12/08/2021 4:01 PM EDT Spoke with Sylwia from [facility] and gave her providers message and she verbalized understanding. * Telephone Encounter - Leilani Ramirez APRN.ALDAIR - 12/08/2021 3:36 PM EDT ok * Telephone Encounter - Gillian Higginbotham RN - 12/08/2021 11:55 AM EDT Sylwia from [facility] calls back to ask if it is ok to fill gabapentin today also d/t being closed tomorrow on fill date. Please review and advise, Gillian Higginbotham RN * Telephone Encounter - Ashley Hernandez RN - 12/08/2021 11:52 AM EDT Sylwia from [facility] pharmacy calls and is asking if it is ok to refill alprazolam today. They are closed tomorrow on the fill date. Please review and advise, Ashley Hernandez RN documented in this encounterDetwiler Memorial Hospital03-28-2022 Instructions* Patient Instructions* Willam Estrada MD - 12/04/2021 5:33 PM EDT Avoid high fructose corn syrup and too much foods with fructose. Avoid too much lactose containing foods. Consider Beano with vegetables. May take Gas X (simethicone) with each meal and bedtime routinely. Take when eat.. Take Lactaid with anything with milk products. documented in this encounterDetwiler Memorial Hospital03-28-2022 History of Present illness Narrative* Willam Estrada MD - 12/04/2021 5:00 PM EDT This note was created using Sophia Learningriter. Subjective Garland De Santiago is a 61 [...] eaten in 6 hours. [facility] [place] Prefers to keep care in [place]. Also gets woozy if closes eyes in [...] indicated. Willam Estrada MD documented in this encounterDetwiler Memorial Hospital12-06-2021 History of Present illness Narrative* [...] 14, 2021 4:08 PM documented in this encounterDetwiler Memorial Hospital07-14-2021 History of Present illness Narrative* [...] 22, 2021 7:24 PM documented in this encounterDetwiler Memorial Hospital12-09-2020 History of Present illness Narrative* Saba Heller (Tech), Tech - 08/17/2020 3:30 PM EST Radiology Service [...] 17, 2020 3:26 PM documented in this encounterDetwiler [facility] Hospital08-19-2020 History of Past illness Narrative* [...] of this encounter (statuses as of 12/08/2021) [facility] Past illness Narrative* [...] of this encounter (statuses as of 12/13/2021) [facility] Past illness Narrative* [...] of this encounter (statuses as of 12/13/2021) [facility] illness Narrative* Problem Noted Date Resolved Date Cauda equina compression 04/27/2020 09/09/2 020 Lumbar stenosis 04/27/2020 05/18/2020 Neck pain, [...] of this encounter (statuses as of 12/18/2021) [facility] of Past illness Narrative* [...] of this encounter (statuses as of 01/18/2022) [facility] Narrative* [...] of this encounter (statuses as of 02/06/2022) [facility] illness Narrative* [...] of this encounter (statuses as of 02/06/2022) [facility] Narrative* [...] of this encounter (statuses as of 02/11/2022) [address]19-2020 History of Past illness Narrative* Problem [...] of this encounter (statuses as of 02/19/2022) [facility] Narrative* [...] of this encounter (statuses as of 02/23/2022) [facility] Narrative* [...] of this encounter (statuses as of 02/23/2022) [facility] Narrative* [...] of this encounter (statuses as of 02/24/2022) [facility] Narrative* [...] of this encounter (statuses as of 03/05/2022) [facility] Narrative* [...] of this encounter (statuses as of 03/08/2022) [facility] Narrative* [...] of this encounter (statuses as of 03/13/2022) [facility] Narrative* [...] of this encounter (statuses as of 03/30/2022) [facility] Narrative* [...] of this encounter (statuses as of 04/10/2022) [facility] Narrative* [...] of this encounter (statuses as of 04/11/2022) [facility] Narrative* [...] of this encounter (statuses as of 04/17/2022) [facility] Narrative* [...] of this encounter (statuses as of 04/19/2022) [facility] Narrative* [...] of this encounter (statuses as of 05/08/2022) [facility] Narrative* [...] of this encounter (statuses as of 05/15/2022) [facility] Narrative* [...] of this encounter (statuses as of 06/12/2022) [facility] Narrative* [...] of this encounter (statuses as of 06/16/2022) [facility] Narrative* [...] of this encounter (statuses as of 06/22/2022) [facility] Narrative* [...] of this encounter (statuses as of 06/26/2022) [facility] Narrative* [...] of this encounter (statuses as of 06/27/2022) [facility] Narrative* [...] of this encounter (statuses as of 06/27/2022) [facility] Narr[facility]* [...] of this encounter (statuses as of 07/02/2022) [facility]* [...] of this encounter (statuses as of 07/04/2022) [facility]* [...] of this encounter (statuses as of 07/05/2022) [facility]* [...] of this encounter (statuses as of 07/09/2022) [facility]* [...] of this encounter (statuses as of 07/13/2022) [facility]* [...] of this encounter (statuses as of 07/20/2022) [facility]arr[facility]* [...] of this encounter (statuses as of 08/06/2022) [facility]* [...] of this encounter (statuses as of 08/10/2022) [facility]* [...] of this encounter (statuses as of 08/24/2022) [facility]* [...] of this encounter (statuses as of 08/25/2022) [facility] Narrative* [...] of this encounter (statuses as of 08/25/2022) [facility]arr[facility]* [...] of this encounter (statuses as of 09/12/2022) [facility] Narrative* [...] of this encounter (statuses as of 09/13/2022) [facility]* [...] of this encounter (statuses as of 09/19/2022) [facility]* [...] of this encounter (statuses as of 09/19/2022) [facility]* [...] of this encounter (statuses as of 09/23/2022) [facility]* [...] of this encounter (statuses as of 10/01/2022) [facility]* [...] of this encounter (statuses as of 10/08/2022) [address]19-2020 History of Past illness Narrative* Problem [...] of this encounter (statuses as of 11/22/2022) [facility]* [...] of this encounter (statuses as of 11/22/2022) [facility]* [...] of this encounter (statuses as of 11/26/2022) [facility]* [...] of this encounter (statuses as of 12/05/2022) [facility]* [...] of this encounter (statuses as of 12/10/2022) [facility]* [...] of this encounter (statuses as of 12/11/2022) [facility]* [...] of this encounter (statuses as of 12/12/2022) [facility]* [...] of this encounter (statuses as of 12/14/2022) [facility]* [...] of this encounter (statuses as of 12/19/2022) [facility]* [...] of this encounter (statuses as of 12/22/2022) [facility]* [...] of this encounter (statuses as of 01/03/2023) [facility]* [...] of this encounter (statuses as of 01/07/2023) [facility]* [...] of this encounter (statuses as of 01/14/2023) [facility]* [...] of this encounter (statuses as of 02/08/2023) [facility]* [...] of this encounter (statuses as of 03/11/2023) [facility]* [...] of this encounter (statuses as of 03/12/2023) [facility]* [...] of this encounter (statuses as of 03/15/2023) [facility]* [...] of this encounter (statuses as of 04/25/2023) [facility]* [...] of this encounter (statuses as of 04/25/2023) [facility]* [...] of this encounter (statuses as of 05/24/2023) [facility]* [...] of this encounter (statuses as of 05/29/2023) [facility]* [...] of this encounter (statuses as of 06/01/2023) [facility]* [...] of this encounter (statuses as of 06/04/2023) [facility]* [...] of this encounter (statuses as of 06/28/2023) [facility] History of Past illness Narrative* [...] of this encounter (statuses as of 07/04/2023) [facility] History of Past illness Narrative* [...] of this encounter (statuses as of 07/14/2023) [facility] History of Past illness Narrative* [...] of this encounter (statuses as of 07/14/2023) [facility] History of Past illness Narrative* [...] of this encounter (statuses as of 07/14/2023) [facility] History of Past illness Narrative* [...] of this encounter (statuses as of 07/18/2023) [facility] History of Past illness Narrative* [...] of this encounter (statuses as of 07/19/2023) [facility] Past illness Narrative* [...] of this encounter (statuses as of 07/19/2023) [facility] History of Past illness Narrative* [...] of this encounter (statuses as of 08/09/2023) [facility] Past illness Narrative* [...] of this encounter (statuses as of 08/19/2023) [facility] Past illness Narrative* [...] of this encounter (statuses as of 11/06/2023) [facility] illness Narrative* [...] of this encounter (statuses as of 11/08/2023) [facility] Past illness Narrative* [...] of this encounter (statuses as of 11/11/2023) [facility] History of Past illness Narrative* [...] of this encounter (statuses as of 11/11/2023) [facility] History of Past illness Narrative* [...] of this encounter (statuses as of 11/21/2023) [facility] History of Past illness Narrative* [...] of this encounter (statuses as of 11/21/2023) [facility] History [facility] Past illness Narrative* [...] of this encounter (statuses as of 11/23/2023) [facility] History of Past illness Narrative* [...] of this encounter (statuses as of 11/26/2023) [facility] History of Past illness Narrative* [...] of this encounter (statuses as of 12/09/2023) [facility] History of Past illness Narrative* [...] of this encounter (statuses as of 12/13/2023) [facility] of Past illness Narrative* [...] of this encounter (statuses as of 12/13/2023) [facility] Diagnosis Severe persistent asthma with acute exacerbation- Primary Unspecified asthma, with exacerbation [facility] Diagnosis Onset Date Resolution Status Abdominal pain acute Diarrhea acute [facility] Work Phone: Evaluation note* Diagnosis Onset Date Resolution Status Abdominal pain acute Diarrhea acute Chest pain acute Mixed hyperlipidemia acute SOB (shortness of breath) [place] Benign essential hypertension chronic [facility] Work Phone: Evaluation note* Diagnosis Onset Date Resolution Status Abdominal pain acute Diarrhea acute Chest pain acute Mixed hyperlipidemia acute SOB (shortness of breath) [place] Benign essential hypertension chronic Abdominal pain acute Diarrhea acute Elevated CPK acute Fatty liver acute Mixed hyperlipidemia acute Type 2 diabetes mellitus acu [facility] Work Phone: Evaluation note* Diagnosis Stage 2 moderate COPD by GOLD classification ([facility])- Primary Cigarette smoker Tobacco use disorder Seasonal allergies Allergic rhinitis, cause unspecified [facility] Diagnosis Abdominal bloating- Primary Flatulence, eructation, and gas pain Abdominal mass, unspecified abdominal location documented in this encounter [facility] note* Diagnosis Rectal bleeding- Primary Hemorrhage of rectum and anus Epigastric abdominal pain Abdominal pain, epigastric Abdominal bloating Flatulence, eructation, and gas pain Rectus diastasis Diastasis of muscle documented in this encounter [facility] note* Diagnosis Rectal bleeding Hemorrhage of rectum and anus Epigastric abdominal pain Abdominal pain, epigastric [facility]* Diagnosis Neuropathy- Primary Mononeuritis of unspecified site Anxiety and depression Dysthymic disorder Neck pain, musculoskeletal Cervicalgia Insomnia, unspecified type Abdominal distension, gaseous Flatulence, eructation, and gas pain [facility]* Diagnosis Gross hematuria- Primary Acute cystitis with hematuria Acute cystitis Dysuria Urinary frequency Urinary urgency Urgency of urination Essential hypertension Unspecified essential hypertension Cigarette smoker Tobacco use disorder documented in this encounter [facility] note* Diagnosis Hemorrhoids, unspecified hemorrhoid type- Primary Hiatal hernia Diaphragmatic hernia without mention of obstruction or gangrene Gastroesophageal reflux disease, unspecified whether esophagitis present Tubular adenoma Benign neoplasm of unspecified site documented in this encounter [facility] note* Diagnosis Type 2 diabetes mellitus with diabetic neuropathy, without long-term current use of insulin ([facility]) documented in this encounter [facility] note* Diagnosis S/P lumbar laminectomy Other postprocedural status Chronic midline low back pain, unspecified whether sciatica present Spinal stenosis of lumbar region, unspecified whether neurogenic claudication present Gait instability Abnormality of gait [facility] Diagnosis Chronic midline low back pain, unspecified whether sciatica present- Primary S/P lumbar laminectomy Other postprocedural status Gait instability Abnormality of gait documented in this encounter [facility] note* Diagnosis Chronic midline low back pain, unspecified whether sciatica present- Primary S/P lumbar laminectomy Other postprocedural status Gait instability Abnormality of gait [facility] Diagnosis Onset Date Resolution Status Mixed hyperlipidemia acute Benign essential hypertension [facility] Work Phone: Evaluation note* Diagnosis Neuropathy Mononeuritis of unspecified site [facility] Diagnosis Chronic midline low back pain, unspecified whether sciatica present- Primary Type 2 diabetes mellitus with diabetic neuropathy, without long-term current use of insulin ([facility]) Class 1 obesity due to excess [...] medication Pure hyperglyceridemia [facility] Diagnosis Painful urination- Primary Dysuria URI, acute Acute upper respiratory infections of unspecified site [facility] Diagnosis Moderate persistent asthma with acute exacerbation- Primary [facility] Diagnosis COPD with exacerbation (HCC)- Primary Obstructive chronic bronchitis with exacerbation Moderate persistent asthma with acute exacerbation Urinary tract infection without hematuria, site unspecified [facility] Severe persistent asthma, unspecified whether complicated- Primary Chronic obstructive pulmonary disease, unspecified COPD type (HCC) Type 2 diabetes mellitus with diabetic neuropathy, without long-term current use of insulin ([facility]) Recent urinary tract infection Abdominal tenderness without rebound tenderness, unspecified location [facility] Type 2 diabetes mellitus with diabetic neuropathy, without long-term current use of insulin ([facility])- Primary Lower abdominal pain Abdominal pain, other specified site Recent urinary tract infection Thrush Candidiasis of mouth [facility] Lower abdominal pain- Primary Abdominal pain, other specified site [facility] Diagnosis Anxiety and depression Dysthymic disorder [facility] noteNo assessment information [facility]er[facility]* Diagnosis COVID-19 virus infection- Primary Severe persistent asthma, unspecified whether complicated Type 2 diabetes mellitus with diabetic neuropathy, without long-term current use of insulin (HCC) [facility] Diagnosis Acute bilateral low back pain [...] single bacterial disease [facility]* Diagnosis Nocturnal enuresis- Primary [facility]* Diagnosis Essential hypertension- Primary Unspecified [...] 33.9 in adult [facility] Diagnosis Acute cough- Primary COPD with exacerbation (HCC) Obstructive chronic bronchitis with exacerbation [facility]* Diagnosis Anxiety and depression Dysthymic disorder [facility] Diagnosis Anxiety and depression Dysthymic disorder documented in this encounter [facility] note* Diagnosis Stage 2 moderate COPD by GOLD classification ([facility])- Primary Tobacco abuse Tobacco use disorder Seasonal allergies Allergic rhinitis, cause unspecified [facility]* Diagnosis Oral thrush- Primary Candidiasis of mouth [facility] Diagnosis Sinobronchitis- Primary Unspecified sinusitis (chronic) Type 2 diabetes mellitus with diabetic neuropathy, without long-term current use of insulin (HCC) Essential hypertension Unspecified essential hypertension Encounter for long-term current use of medication Mixed hyperlipidemia Chronic obstructive pulmonary disease, unspecified COPD type (HCC) Neuropathy Mononeuritis of unspecified site Stage 2 moderate COPD by GOLD classification ([facility]) Moderate persistent asthma without complication Unspecified asthma Depression, recurrent (HCC) Major depressive disorder, recurrent episode, unspecified documented in this encounter [facility] note* Diagnosis Onset Date Resolution Status Abdominal pain chronic Bloating chronic Diarrhea chronic [place] [facility] Work Phone: Evaluation note* Diagnosis COPD with exacerbation (HCC)- Primary Obstructive chronic bronchitis with exacerbation Itching Unspecified pruritic disorder Sinobronchitis Unspecified sinusitis (chronic) Recurrent major depressive disorder, in remission ([facility]) documented in this encounter [facility] note* Diagnosis Anxiety and depression Dysthymic disorder documented in this encounter [facility] note* Diagnosis Moderate persistent asthma without complication Unspecified asthma documented in this encounter [facility] note* Diagnosis Onset Date Resolution Status Abdominal pain chronic Bloating chronic Diarrhea chronic [place] chronic Abdominal pain chronic Bloating chronic Diarrhea chronic [place] [facility] Work Phone: Evaluation note* Diagnosis Stage 2 moderate COPD by GOLD classification ([facility]) documented in this encounter [facility] note* Diagnosis Stage 2 moderate COPD by GOLD classification ([facility]) documented in this encounter [facility] note* Diagnosis Stage 2 moderate COPD by GOLD classification ([facility])- Primary Tobacco abuse Tobacco use disorder documented in this encounter [facility] note* Diagnosis Acute cough- Primary Asthma with COPD with exacerbation (HCC) Chronic obstructive asthma with exacerbation documented in this encounter [facility] note* Diagnosis Hives- Primary Urticaria, unspecified Dermatitis Contact dermatitis and other eczema, due to unspecified cause Other fatigue [facility]* Diagnosis Hives- Primary Urticaria, unspecified Dermatitis Contact dermatitis and other eczema, due to unspecified cause [facility]* Diagnosis Asymptomatic postmenopausal status [facility]* Diagnosis Acute bilateral low back pain with bilateral sciatica Radiculopathy of lumbar region Thoracic or lumbosacral neuritis or radiculitis, unspecified Spinal stenosis of lumbar region with neurogenic claudication Spinal stenosis, lumbar region, with neurogenic claudication [facility]* Diagnosis Lower abdominal pain Abdominal pain, other specified site documented in this encounter [facility] note* Diagnosis Encounter for screening mammogram for breast cancer documented in this encounter [facility] note* Diagnosis Moderate persistent asthma without complication Unspecified asthma documented in this encounter [facility] note* Diagnosis Essential hypertension- Primary Unspecified essential hypertension Throbbing headache Headache Acute pain of right shoulder Type 2 diabetes mellitus with hyperglycemia, without long-term current use of insulin (HCC) Severe persistent asthma without complication Pain in both lower extremities Encounter for immunization Need for other specified prophylactic vaccination against single bacterial disease documented in this encounter [facility] note* Diagnosis Onset Date Resolution Status Gastroparesis acute Nonalcoholic fatty liver disease acute Abdominal pain chronic Bloating chronic Diarrhea chronic [place] chronic Hemorrhoid chronic [facility] Work Phone: Evaluation note* Diagnosis Asthma with COPD (HCC)- Primary Chronic obstructive asthma, unspecified Cigarette smoker Tobacco use disorder YARY (obstructive sleep apnea) Obstructive sleep apnea (adult) (pediatric) documented in this encounter [facility] note* Diagnosis Neuropathy Mononeuritis of unspecified site Stage 2 moderate COPD by GOLD classification ([facility]) documented in this encounter [facility] note* Diagnosis Asthma with COPD (HCC) Chronic obstructive asthma, unspecified documented in this encounter [facility] note* Diagnosis Asthma with COPD (HCC) Chronic obstructive asthma, unspecified documented in this encounter [facility] note* Diagnosis Encounter for screening for lung cancer- Primary Tobacco use current documented in this encounter [facility] note* Diagnosis Type 2 diabetes mellitus with hyperglycemia, without long-term current use of insulin (HCC)- Primary YARY (obstructive sleep apnea) Obstructive sleep apnea (adult) (pediatric) Neuropathy Mononeuritis of unspecified site Anxiety and depression Dysthymic disorder Essential hypertension Unspecified essential hypertension Mixed hyperlipidemia Severe persistent asthma without complication Recurrent major depressive disorder, in remission (HCC) Type 2 diabetes mellitus with diabetic neuropathy, without long-term current use of insulin ([facility]) documented in this encounter [facility] note* Diagnosis YARY (obstructive sleep apnea) Obstructive sleep apnea (adult) (pediatric) [facility] Diagnosis Tobacco use current [facility]* Diagnosis Tobacco use current- Primary documented in this encounter [facility] note* Diagnosis Elevated CK- Primary Other nonspecific abnormal serum enzyme levels [facility] Diagnosis Diarrhea, unspecified type- Primary Elevated CK Other nonspecific abnormal serum enzyme levels Myalgias Type 2 diabetes mellitus with hyperglycemia, without long-term current use of insulin ([facility]) Class 1 obesity due to excess calories with body mass index (BMI) of 32.0 to 32.9 in adult, unspecified whether serious comorbidity present YARY (obstructive sleep apnea) Obstructive sleep apnea (adult) (pediatric) [facility] Diagnosis YARY (obstructive sleep apnea)- Primary Obstructive sleep apnea (adult) (pediatric) Injury of toe on left foot, initial encounter [facility] Diagnosis Acute cough- Primary Elbow swelling, right Suspected COVID-19 virus infection Elbow swelling, right Acute cough [facility] Diagnosis Cystitis- Primary Cystitis, unspecified [facility] Diagnosis Moderate persistent asthma without complication Unspecified asthma [facility] Diagnosis Anxiety and depression Dysthymic disorder [facility] Diagnosis Lung nodules- Primary Other nonspecific abnormal finding of lung field Moderate persistent asthma without complication Unspecified asthma Cigarette smoker Tobacco use disorder Class 2 obesity [facility] Diagnosis Acute cystitis without hematuria- Primary Acute cystitis History of sepsis Personal history of other infectious and parasitic disease Gas bloat syndrome Urinary urgency Urgency of urination Type 2 diabetes mellitus with hyperglycemia, without long-term current use of insulin ([facility]) Other chronic back pain [facility] Diagnosis Elbow swelling, right Acute cough [facility] Diagnosis Injury of toe on left foot, initial encounter [facility] Diagnosis Acute bronchitis with chronic obstructive pulmonary disease (COPD) (HCC) (HCC)- Primary Obstructive chronic bronchitis with acute bronchitis Essential hypertension Unspecified essential hypertension Type 2 diabetes mellitus with hyperglycemia, without long-term current use of insulin (HCC) Mixed hyperlipidemia Severe persistent asthma with acute exacerbation Unspecified asthma, with exacerbation Encounter for long-term current use of medication Class 1 obesity due to excess calories with body mass index (BMI) of 30.0 to 30.9 in adult, unspecified whether serious comorbidity present [facility]* Diagnosis Sinobronchitis- Primary Unspecified sinusitis (chronic) Stage 2 moderate COPD by GOLD classification ([facility]) Acute upper respiratory infection Acute upper respiratory infections of unspecified site Acute viral syndrome Unspecified viral infection, in conditions classified elsewhere and of unspecified site documented in this encounter [facility] note* Diagnosis COVID- Primary documented in this encounter [facility] note* Diagnosis Acute cough documented in this encounter [facility] note* Diagnosis Acute pain of right shoulder documented in this encounter [facility] note* Diagnosis Acute cough documented in this encounter [facility] note* Diagnosis Moderate persistent asthma with acute exacerbation documented in this encounter [facility] note* Diagnosis Chronic obstructive pulmonary disease, unspecified COPD type (HCC)- Primary documented in this encounter [facility] note* Diagnosis Acute cough URI, acute Acute upper respiratory infections of unspecified site documented in this encounter [facility] note* Diagnosis Chest pain, unspecified type Cough SOB (shortness of breath) Shortness of breath documented in this encounter [facility] note* Diagnosis Neuropathy Mononeuritis of unspecified site [facility] Diagnosis S/P lumbar laminectomy Other postprocedural status documented in this encounter [facility] note* Diagnosis Lung nodules Other nonspecific abnormal finding of lung field documented in this encounter [facility] note* Diagnosis Type 2 diabetes mellitus with diabetic neuropathy, without long-term current use of insulin ([facility])- Primary documented in this encounter [facility] note* Diagnosis Moderate persistent asthma without complication Unspecified asthma Stage 2 moderate COPD by GOLD classification ([facility]) documented in this encounter [facility] note* Diagnosis Needs assistance with community resources- Primary documented in this encounter [facility] note* Diagnosis Neuropathy- Primary Mononeuritis of unspecified site Other fatigue documented in this encounter [facility] note* Diagnosis Type 2 diabetes mellitus with diabetic neuropathy, without long-term current use of insulin ([facility])- Primary Neck pain, musculoskeletal Cervicalgia Mixed [...] depression Dysthymic disorder [facility] Diagnosis Needs assistance with community resources- Primary [facility] Diagnosis Other chronic back pain- Primary Neuropathy Mononeuritis of unspecified site [facility]* Diagnosis Pain with urination- Primary Renal colic [facility] Diagnosis Multifocal pneumonia- Primary Pleural effusion Unspecified pleural effusion Cigarette smoker Tobacco use disorder [facility] Diagnosis Essential hypertension- Primary Unspecified essential hypertension GRACIELA (acute kidney injury) (HCC) Acute kidney failure, unspecified Elevated brain natriuretic peptide (BNP) level Other nonspecific findings on examination of blood Multifocal pneumonia [facility]* Diagnosis Needs assistance with community resources- Primary documented in this encounter [facility] Diagnosis Needs assistance with community resources- Primary [facility] Diagnosis Encounter for screening mammogram for breast cancer Dense breast tissue [facility] Diagnosis Neuropathy- Primary Mononeuritis of unspecified site Carpal tunnel syndrome of right wrist Carpal tunnel syndrome [facility] Diagnosis Moderate persistent asthma without complication- Primary Unspecified asthma Lung nodules Other nonspecific abnormal finding of lung field Class 2 obesity Tobacco use current YARY (obstructive sleep apnea) Obstructive sleep apnea (adult) (pediatric) Family history of abdominal aortic aneurysm (AAA) Ectasia of artery (HCC) documented [facility]* Diagnosis Type 2 diabetes mellitus with diabetic neuropathy, without long-term current use of insulin (HCC)- Primary Essential hypertension Unspecified essential hypertension Moderate persistent asthma without complication Unspecified asthma Anxiety and depression Dysthymic disorder Neuropathy Mononeuritis of unspecified site Bilateral leg edema Edema Chronic obstructive pulmonary disease with (acute) exacerbation (HCC) documented [facility] Diagnosis Urinary frequency- Primary documented in this encounter [facility] note* Diagnosis Encounter for screening for lung cancer- Primary Tobacco use current [facility] Diagnosis Urinary frequency- Primary Asthma, unspecified asthma severity, unspecified whether complicated, unspecified whether persistent (HCC) History of urinary tract infection Personal history of urinary (tract) infection [facility] Diagnosis Toe pain, right- Primary Pain in limb Family history of abdominal aortic aneurysm (AAA) Ectasia of artery Acute right ankle pain [facility] Diagnosis Acute right ankle pain Toe pain, right Pain in limb [facility] Diagnosis Dizziness- Primary Dizziness and giddiness SOB (shortness of breath) Shortness of breath Acute respiratory distress Other pulmonary insufficiency, not elsewhere classified [facility] Author Uriel Caceres [facility] July 01, 2023 8:01am Note Date/Time July 01, 2023 8 :01am [facility] Medical Records Department [address] [place] [address] History & Physical Exam 07/01/23 0800 MR#: [id number] Acct: [id number] Name: GARLAND DE SANTIAGO Rep #:[id number] : 1960 63 From: Uriel Caceres DO PCP: Dr. Willam Estrada MD Status:[facility] Location: [place] [address] History and Physical Date of Admission: 07/01/23 62 F who presents to the office today for a follow up. Prior workup:?Stool?H.Pylori, C.diff, lactoferrin, EP WNL.? *BGI established 12.14.21 with postprandial abdominal bloating and diarrhea 15+/day with periodic incontinence?Biochemical?CBC, ESR, CMP, CRP, LDH, TSH, JOSE F comp, gastrin, celiac without pertinent abnormality?Stool O/P, giardia?CT abd/pel 12.22.21?Gastric emptying study 12.26.21?US RUQ and?Elastography .11.28? OV 01.15.22 symptoms improved with use of [...] heartburn and diarrhea 10-12/day since Fall 2020. [place] is primary food as other foods worsen [...] Mood: congruent mood Quality Reporting Tobacco Screening ([facility] 138) Smoking Status: Current every day [...] results from her EGD and colonoscopy at [facility] in 02/2022. f/u next available. (2) [...] Willam Estrada MD; Uriel Caceres DO~ Signed [facility] Work Phone: History and physical note Author Uriel Caceres [facility] November 28, 2023 9:25am Note Date/Time November 28, 2023 9:2 5am [facility] Medical Records Department [address] [place] [address] History & Physical Exam 11/28/23 09 MR#: [id number] Acct: [id number] Name: GARLAND DE SANTIAGO Rep #:[id number] : 1960 63 From: Uriel Caceres DO PCP: Dr. Willam Estrada MD Status:[facility] Location: [place] [address] History and Physical Date of Admission: 11/28/23 GARLAND DE SANTIAGO, is a 63 F who presents to the office today for Prior workup: ? Stool H.Pylori, C.diff, lactoferrin, EP WNL. *BGI established .. with postprandial abdominal bloating and diarrhea 15+/day with periodic incontinence ? Biochemical CBC, ESR, CMP, CRP, LDH, TSH, JOSE F comp, gastrin, celiac without pertinent abnormality ? Stool O/P, giardia ? CT abd/pel ..22 hepatic steatosis ? Gastric emptying study 22WNL ? US RUQ and Elastography 5.3.22 hepatic measurement 13.9cm with fatty infiltration stiffness 7kPa OV 5.9.22 symptoms improved with use of Creon; metformin [...] heartburn and diarrhea 10-12/day since Fall 2020. [place] is primary food as other foods worsen [...] Mood: congruent mood Quality Reporting Tobacco Screening ([facility] 138) Smoking Status: Current every day [...] results from her EGD and colonoscopy at [facility] in 02/2022. f/u next available. (2) [...] are no clinicalchanges since date of exam. 11/28/23 09 <Electronically signed by Uriel Caceres DO> Cosigner Signature (if applicable): CC: Dr. Willam Estrada MD; Uriel Caceres DO~ Signed [facility] Work Phone: Hospital Discharge instructions Additional Instructions Cardiac work-up negative chest x-ray negative. Discussed with your doctor for different nebulizer, stop smoking. Follow-up with your doctor return if worsening symptoms.[facility] Work Phone: Hospital Discharge instructions Additional Instructions For the next 4 days or so, take 1 potassium tablet twice per [facility] Work Phone: Hospital Discharge instructionsAmbulatory Orders* Pain Management Location: None Selected [facility] Work Phone: Hospital Discharge instructionsAdditional Instructions Use your inhaler or nebulizer. There are no signs of pneumonia you do not need an antibiotic Follow-up with your doctor if not improving if not improving you might want to strongly consider using prednisone the steroid.[facility] Work Phone: Reason for referral (narrative)* Outpatient Procedure (Routine) - Authorized Specialty Diagnoses / Procedures Referred By Milka t Referred To Contact [facility] Diagnoses Epigastric abdominal pain Procedures EGD DIAGNOSTIC ESOPHAGOGASTRODUODENOSC OPY TRANSORAL DIAGNOSTIC Patti Manrique MD [address] [place] [address] [facility] [address] [place] [address] Referral ID Status Reason Start Date Expiration Date Visits Requested Visits Authorized [id number] Authorized Auto-Generat ed Referral 02/09/2022 02/09/2023 1 1 * Outpatient Procedure (Routine) - Authorized Specialty Diagnoses / Procedures Referred By Contac t Referred To Contact [facility] Diagnoses Rectal bleeding Procedures COLONOSCOPY DIAGNOSTIC COLONOSCOPY FLX DX W/COLLJ SPEC WHEN Patti Shipley MD [address] [place] [address] [address] Referral ID Status Reason Start Date Expiration Date Visits Requested Visits Authorized [id number] Authorized Auto-Generat ed Referral 02/09/2022 02/09/2023 1 1 [facility] for referral (narrative)* Outpatient Procedure (Routine) - Closed Specialty Diagnoses / Procedures Referred By Contac t Referred To Contact [facility] Diagnoses Epigastric abdominal pain Procedures EGD DIAGNOSTIC ESOPHAGOGASTRODUODENOSC OPY TRANSORAL DIAGNOSTIC Patti Manrique MD [address] [place] [address] [address] Referral ID Status Reason Start Date Expiration Date V isits Requested Visits Authorized [id number] Closed Auto-Generate d Referral 02/09/2022 02/09/2023 1 1 * Outpatient Procedure (Routine) - Closed Specialty Diagnoses / Procedures Referred By Contac t Referred To Contact [facility] Diagnoses Rectal bleeding Procedures COLONOSCOPY DIAGNOSTIC COLONOSCOPY FLX DX W/COLLJ SPEC WHEN Patti Shipley MD [address] [place] [address] [address] Referral ID Status Reason Start Date Expiration Date V isits Requested Visits Authorized [id number] Closed Auto-Generate d Referral 02/09/2022 02/09/2023 1 1 [facility] for referral (narrative)* Diagnostic Procedure Only (Routine) - Authorized Specialty Diagnoses / Procedures Referred By Contac t Referred To Contact [facility] Diagnoses Lower abdominal pain Procedures US FEMALE PELVIS TRANSVAG US TRANSVAGINAL Diana Andres APRN.UNDER CUTTING MACHINE OPERATOR [address] [place] [address] [facility] Referral ID Status Reason Start Date Expiration Date Visits Requested Visits Authorized [id number] Authorized Auto-Generat ed Referral 2 08/08/2023 1 1 * Diagnostic Procedure Only (Routine) - Authorized Specialty Diagnoses / Procedures Referred By Contac t Referred To Contact [facility] Diagnoses Lower abdominal pain Procedures US FEMALE PELVIS TRANSABD LTD US PELVIC NONOBSTETRIC IMAGE DCMTN LIMITED/F/U Diana Andres APRN.UNDER CUTTING MACHINE OPERATOR [address] [place] [address] [facility] Referral ID Status Reason Start Date Expiration Date Visits Requested Visits Authorized [id number] Authorized Auto-Generat ed Referral 2 08/08/2023 1 1 [facility] for referral (narrative)* Outpatient Procedure (Routine) - Authorized Specialty Diagnoses / Procedures Referred By Contac t Referred To Contact [facility] Diagnoses Essential hypertension Pain in both lower extremities Foot pain, bilateral Cigarette smoker Type 2 diabetes mellitus with diabetic neuropathy, without long-term current use of insulin (HCC) Diminished pulses in lower extremity Procedures PVR [facility] NON-INVASIVE PHYSIOLOGIC STUDY EXTREMITY 3 Willam Connor MD [address] [place] [address] [facility] [place] [address] [place] [address] Referral ID Status Reason Start Date Expiration Date Visits Requested Visits Authorized [id number] Authorized Auto-Generat ed Referral 10/08/2022 10/08/2023 1 1 [facility] for referral (narrative)* Outpatient Procedure (Routine) - Authorized Specialty Diagnoses / Procedures Referred By Contac t Referred To Contact [facility] Diagnoses Stage 2 moderate COPD by GOLD classification ([facility]) Procedures LUNG DIFFUSION CAPACITY (DLCO) DIFFUSING CAPACITY Leila Rubi PA-C [address] [facility] [place] [place] [address] [facility] [place] [id number] [place] [id number] Referral ID Status Reason Start Date Expiration Date Visits Requested Visits Authorized [id number] Authorized Auto-Generat ed Referral 12/21/2022 01/20/2024 1 1 * Outpatient Procedure (Routine) - Authorized Specialty Diagnoses / Procedures Referred By Contac t Referred To Contact [facility] Diagnoses Stage 2 moderate COPD by GOLD classification ([facility]) Procedures SPIROMETRY BASELINE ONLY SPMTRY W/VC EXPIRATORY WEST W/WO MXML VOL VNTJ Leila Rubi PA-C [address] [place] [address] [place] [address] [place] [address] Referral ID Status Reason Start Date Expiration Date Visits Requested Visits Authorized [id number] Authorized Auto-Generat ed Referral 12/21/2022 01/20/2024 1 1 [facility] for referral (narrative)* Diagnostic Procedure Only (Routine) - Closed Specialty Diagnoses / Procedures Referred By Contac t Referred To Contact [facility] Diagnoses Lower abdominal pain Procedures US FEMALE PELVIS TRANSVAG US TRANSVAGINAL Diana Andres APRN.UNDER CUTTING MACHINE OPERATOR [address] [place] [address] Us Imaging [facility]95 Referral ID Status Reason Start Date Expiration Date V isits Requested Visits Authorized [id number] Closed Auto-Generate d Referral 07/09/2022 08/08/2023 1 1 * Diagnostic Procedure Only (Routine) - Closed Specialty Diagnoses / Procedures Referred By Contac t Referred To Contact [facility] Diagnoses Lower abdominal pain Procedures US FEMALE PELVIS TRANSABD LTD US PELVIC NONOBSTETRIC IMAGE DCMTN LIMITED/F/U Diana Andres APRN.UNDER CUTTING MACHINE OPERATOR [address] [place] [address] [place] [address] Referral ID Status Reason Start Date Expiration Date V isits Requested Visits Authorized [id number] Closed Auto-Generate d Referral 07/09/2022 08/08/2023 1 1 [facility] for referral (narrative)* Diagnostic Procedure Only (Routine) - Closed Specialty Diagnoses / Procedures Referred By Contac t Referred To Contact [facility] Diagnoses Encounter for screening mammogram for breast cancer Procedures JAVIER SCREENING SCREENING MAMMOGRAPHY BI 2-VIEW BREAST INC CAD Willam Estrada MD [address] [place] [address] [facility] [address] [place] [address] Referral ID Status Reason Start Date Expiration Date V isits Requested Visits Authorized [id number] Closed Auto-Generate d Referral 08/07/2022 09/06/2023 1 1 [facility] for referral (narrative)* Diagnostic Procedure Only (Routine) - Closed Specialty Diagnoses / Procedures Referred By Contac t Referred To Contact XR IMAGING Diagnoses Acute pain of right shoulder Procedures XR SHOULDER GENERAL 3V OR MORE AP/TRUE AP/OTHER RIGHT RADEX SHOULDER COMPLETE MINIMUM 2 VIEWS Willam Estrada MD [address] [place] [address] [place] [address] Referral ID Status Reason Start Date Expiration Date V isits Requested Visits Authorized [id number] Closed Auto-Generate d Referral 07/23/2023 08/21/2024 1 1 [facility] for referral (narrative)* Outpatient Procedure (Routine) - Authorized Specialty Diagnoses / Procedures Referred By Contac t Referred To Contact [facility] Diagnoses Asthma with COPD (HCC) Procedures NITRIC OXIDE, EXHALED NITRIC OXIDE GAS DETERMINATION Mona Corrigan MD [address] [facility] [place] [place] [address] [facility] [place] [address] [place], [place] [id number] Referral ID Status Reason Start Date Expiration Date Visits Requested Visits Authorized [id number] Authorized Auto-Generat ed Referral 11/05/2023 12/04/2024 1 1 * Outpatient Procedure (Routine) - Authorized Specialty Diagnoses / Procedures Referred By Kyleeac t Referred To Contact [facility] Diagnoses Asthma with COPD (HCC) Procedures SPIROMETRY WITH DILATOR IF OBSTRUCTED BRNCDILAT RSPSE SPMTRY PRE&POST-BRNCDILAT ADMN Mona Corrigan MD [address] [place] [address] [address] Referral ID Status Reason Start Date Expiration Date Visits Requested Visits Authorized [id number] Authorized Auto-Generat ed Referral 11/05/2023 12/04/2024 1 1 [facility] for referral (narrative)* Diagnostic Procedure Only (Routine) - Closed Specialty Diagnoses / Procedures Referred By Contac t Referred To Contact XR IMAGING Diagnoses Injury of toe on left foot, initial encounter Procedures XR FOOT GENERAL 3V AP/LAT/OBL LEFT RADEX FOOT COMPLETE MINIMUM 3 VIEWS Allegra Berumen APRN.UNDER CUTTING MACHINE OPERATOR [address] [place] [address] X[facility] Imaging [facility] Referral ID Status Reason Start Date Expiration Date V isits Requested Visits Authorized [id number] Closed Auto-Generate d Referral 02/18/2024 03/19/2025 1 1 [facility] for referral (narrative)* Diagnostic Procedure Only (Urgent) - Closed Specialty Diagnoses / Procedures Referred By Contac t Referred To Contact XR IMAGING Diagnoses Elbow swelling, right Procedures XR ELBOW SPECIAL VIEWS AP/LAT/OTHER RIGHT RADEX ELBOW COMPLETE MINIMUM 3 VIEWS Felipe Jolly APRN.UNDER CUTTING MACHINE OPERATOR [address] [place] [address] [place] [address] Referral ID Status Reason Start Date Expiration Date V isits Requested Visits Authorized [id number] Closed Auto-Generate d Referral 03/04/2024 04/03/2025 1 1 [facility] for referral (narrative)* Diagnostic Procedure Only (Urgent) - Closed Specialty Diagnoses / Procedures Referred By Contac t Referred To Contact XR IMAGING Diagnoses Elbow swelling, right Procedures XR ELBOW SPECIAL VIEWS AP/LAT/OTHER RIGHT RADEX ELBOW COMPLETE MINIMUM 3 VIEWS Felipe Jolly APRN.UNDER CUTTING MACHINE OPERATOR [address] [facility] [place] [place] [address] [place] [address] Referral ID Status Reason Start Date Expiration Date V isits Requested Visits Authorized [id number] Closed Auto-Generate d Referral 03/04/2024 04/03/2025 1 1 [facility] for referral (narrative)* Diagnostic Procedure Only (Routine) - Closed Specialty Diagnoses / Procedures Referred By Contac t Referred To Contact XR IMAGING Diagnoses Injury of toe on left foot, initial encounter Procedures XR FOOT GENERAL 3V AP/LAT/OBL LEFT RADEX FOOT COMPLETE MINIMUM 3 VIEWS Allegra Berumen APRN.UNDER CUTTING MACHINE OPERATOR [address] [place] [address] [place] [address] Referral ID Status Reason Start Date Expiration Date V isits Requested Visits Authorized [id number] Closed Auto-Generate d Referral 02/18/2024 03/19/2025 1 1 [facility] for referral (narrative)* Diagnostic Procedure Only (Routine) - Closed Specialty Diagnoses / Procedures Referred By Milka t Referred To Contact XR IMAGING Diagnoses Acute pain of right shoulder Procedures XR SHOULDER GENERAL 3V OR MORE AP/TRUE AP/OTHER RIGHT RADEX SHOULDER COMPLETE MINIMUM 2 VIEWS Willam Estrada MD [facility] [place] [id number] Xr Imaging [place] [address] Referral ID Status Reason Start Date Expiration Date V isits Requested Visits Authorized [id number] Closed Auto-Generate d Referral 07/23/2023 08/21/2024 1 1 [facility] for referral (narrative)* Outpatient Procedure (Routine) - New Request Specialty Diagnoses / Procedures Referred By Contac t Referred To Contact [facility] Diagnoses Neuropathy Procedures EMG(NEURO/NI) NERVE CONDUCTION STUDIES 9-10 STUDIES Indigo Nichols PA-C [address] [place] [address] [facility] [place] [address] [place] [address] Referral ID Status Reason Start Date Expiration Date Visits Requested Visits Authorized [id number] New Request Auto-Generat ed Referral 07/29/2025 1 1 [facility] for referral (narrative)* Outpatient Procedure (Routine) - New Request Specialty Diagnoses / Procedures Referred By Contac t Referred To Contact [facility] Diagnoses Neuropathy Procedures EMG(NEURO/NI) NERVE CONDUCTION STUDIES 9-10 STUDIES Indigo Nichols PA-C [address] [place] [address] [facility] [place] [address] [place] [address] Referral ID Status Reason Start Date Expiration Date Visits Requested Visits Authorized [id number] New Request Auto-Generat ed Referral 4 07/31/2025 1 1 * Outpatient Procedure (Routine) - New Request Specialty Diagnoses / Procedures Referred By Milka ulloa Referred To Contact [facility] Diagnoses Neuropathy Procedures EMG(NEURO/NI) NERVE CONDUCTION STUDIES 9-10 STUDIES Indigo Nihcols PA-C [address] [place] [address] [facility] [place] [address] [place] [address] Referral ID Status Reason Start Date Expiration Date Visits Requested Visits Authorized [id number] New Request Auto-Generat ed Referral 4 07/31/2025 1 1 [facility] for referral (narrative)* Diagnostic Procedure Only (Routine) - Closed Specialty Diagnoses / Procedures Referred By Milka ulloa Referred To Contact [facility] Diagnoses Encounter for screening mammogram for breast cancer Dense breast tissue Procedures JAVIER SCREENING W STARLA SCREENING DIGITAL BREAST TOMOSYNTHESIS BI SCREENING MAMMOGRAPHY BI 2-VIEW BREAST INC CAD Alejandrina Barrios MD [address] [place] [address] Br Imaging [address] [place] [address] Referral ID Status Reason Start Date Expiration Date V isits Requested Visits Authorized [id number] Closed Auto-Generate d Referral 10/03/2023 11/01/2024 1 1 [facility] for visit Narrative* Outpatient Procedure (Routine) - Closed Specialty Diagnoses / Procedures Referred By Milka ulloa Referred To Contact [facility] Diagnoses Epigastric abdominal pain Procedures EGD DIAGNOSTIC ESOPHAGOGASTRODUODENOSC OPY TRANSORAL DIAGNOSTIC Patti Manrique MD [address] [facility] [place] [place] [address] [facility] [place] [address] [place] [address] Referral ID Status Reason Start Date Expiration Date V isits Requested Visits Authorized [id number] Closed Auto-Generate d Referral 02/09/2022 02/09/2023 1 1 [facility] for visit Narrative* Diagnostic Procedure Only (Routine) - Closed Specialty Diagnoses / Procedures Referred By Contac t Referred To Contact [facility] Diagnoses Encounter for screening mammogram for breast cancer Procedures JAVIER SCREENING SCREENING MAMMOGRAPHY BI 2-VIEW BREAST INC CAD Willam Estrada MD [address] [place] [address] [facility] [address] [place] [address] Referral ID Status Reason Start Date Expiration Date V isits Requested Visits Authorized [id number] Closed Auto-Generate d Referral 08/07/2022 09/06/2023 1 1 [facility] for visit Narrative* Diagnostic Procedure Only (Urgent) - Closed Specialty Diagnoses / Procedures Referred By Contac t Referred To Contact XR IMAGING Diagnoses Elbow swelling, right Procedures XR ELBOW SPECIAL VIEWS AP/LAT/OTHER RIGHT RADEX ELBOW COMPLETE MINIMUM 3 VIEWS Felipe Jolly, CHIEF PROGRAM OFFICER.UNDER CUTTING MACHINE OPERATOR [address] [place] [address] [place] [address] Referral ID Status Reason Start Date Expiration Date V isits Requested Visits Authorized [id number] Closed Auto-Generate d Referral 03/04/2024 04/03/2025 1 1 [facility] for visit Narrative* Diagnostic Procedure Only (Routine) - Closed Specialty Diagnoses / Procedures Referred By Contac t Referred To Contact XR IMAGING Diagnoses Injury of toe on left foot, initial encounter Procedures XR FOOT GENERAL 3V AP/LAT/OBL LEFT RADEX FOOT COMPLETE MINIMUM 3 VIEWS Allegra Berumen, CHIEF PROGRAM OFFICER.UNDER CUTTING MACHINE OPERATOR [address] [place] [address] [place] [address] Referral ID Status Reason Start Date Expiration Date V isits Requested Visits Authorized [id number] Closed Auto-Generate d Referral 02/18/2024 03/19/2025 1 1 [facility] for visit Narrative* Diagnostic Procedure Only (Routine) - Closed Specialty Diagnoses / Procedures Referred By Contac t Referred To Contact XR IMAGING Diagnoses Acute pain of right shoulder Procedures XR SHOULDER GENERAL 3V OR MORE AP/TRUE AP/OTHER RIGHT RADEX SHOULDER COMPLETE MINIMUM 2 VIEWS Willam Estrada MD [address] [place] [address] Xr Imaging [facility] Referral ID Status Reason Start Date Expiration Date V isits Requested Visits Authorized [id number] Closed Auto-Generate d Referral 07/23/2023 08/21/2024 1 1 [facility] for visit Narrative* Diagnostic Procedure Only (Routine) - Closed Specialty Diagnoses / Procedures Referred By Milka t Referred To Contact [facility] Diagnoses Encounter for screening mammogram for breast cancer Dense breast tissue Procedures JAVIER SCREENING W STARLA SCREENING DIGITAL BREAST TOMOSYNTHESIS BI SCREENING MAMMOGRAPHY BI 2-VIEW BREAST INC CAD Alejandrina Barrios MD [address] [place] [id number] [facility] [address] [place] [address] Referral ID Status Reason Start Date Expiration Date V isits Requested Visits Authorized [id number] Closed Auto-Generate d Referral 10/03/2023 11/01/2024 1 1 [facility] for visit Narrative* Diagnostic Procedure Only (Routine) - Closed Specialty Diagnoses / Procedures Referred By Milka ulloa Referred To Contact XR IMAGING Diagnoses Acute right ankle pain Procedures XR ANKLE 2V AP/LAT RIGHT RADIOLOGIC EXAMINATION ANKLE 2 VIEWS Jonnathan Mckeon, DO [address] [place] [address] Phone: tel: fax: [facility] [id number] Referral ID Status Reason Start Date Expiration Date V isits Requested Visits Authorized [id number] Closed Auto-Generate d Referral 03/02/2025 04/01/2026 1 1 [facility] Summary Purpose Family History No [...] FoundDocuments on File Type Date Recorded Patient Project Development Leader Expl anation Advance Directive(s) 08/10/2021 12:29 PM Advance Directive(s) 07/18/2021 3:57 PM Advance Directive(s) 04/27/2020 12:06 PM Advance Directive(s) 08/07/2019 2:15 PM Advance Directive(s) 02/09/2016 10:35 AM Advance Directive Response Recorded Date/ Time Advance Directives No September 26, 2015 10:28am Living Will No August 21 021 3:48pm Power of Running Specialist No August 21, 2021 3:48pm Documents on File Type Date Recorded Patient Project Development Leader Expl anation Advance Directive(s) 08/10/2021 12:29 PM Advance Directive(s) 07/18/2021 3:57 PM Advance Directive(s) 04/27/2020 12:06 PM Advance Directive(s) 08/07/2019 2:15 PM Advance Directive(s) 02/09/2016 10:35 AM Documents on File Type Date Recorded Patient Project Development Leader Expl anation Advance Directive(s) 02/22/2022 11:18 AM Advance Directive(s) 08/10/2021 12:29 PM Advance Directive(s) 07/18/2021 3:57 PM Advance Directive(s) 04/27/2020 12:06 PM Advance Directive(s) 08/07/2019 2:15 PM Advance Directive(s) 02/09/2016 10:35 AM Documents on File Type Date Recorded Patient Project Development Leader Expl anation Advance Directive(s) 02/22/2022 11:18 AM Advance Directive(s) 08/10/2021 12:29 PM Advance Directive(s) 07/18/2021 3:57 PM Advance Directive(s) 04/27/2020 12:06 PM Advance Directive(s) 08/07/2019 2:15 PM Advance Directive(s) 02/09/2016 10:35 AM Advance Directive Response Recorded Date/ Time Advance Directives No September 26, 2015 9:28am Living Will No August 24, 2 022 7:27pm Power of Running Specialist No August 24, 2022 7:27pm Advance Directive Response Recorded Date/ Time Advance Directives No September 26, 2015 10:28am Living Will No December 29, 2022 8:15pm Power of Running Specialist No December 29 8:15pm Advance Directive Response Recorded Date/ Time Advance Directives No September 26, 2015 10:28am Living Will No May 26, 2023 9:50pm Power of Running Specialist No May 9:50pm Advance Directive Response Recorded Date/ Time Advance Directives No September 26, 2015 10:28am Living Will No May 30, 2023 4:45pm Power of Running Specialist No May 4:45pm Advance Directive Response Recorded Date/ Time Advance Directives No September 26, 2015 10:28am Living Will No June 27 10:14pm Power of Running Specialist No June 27, 2023 10:14pm Advance Directive Response Recorded Date/ Time Advance Directives No September 26, 2015 9:28am Living Will No September 20 5:17pm Power of Running Specialist No September 20, 2023 5:17pm Advance Directive Response Recorded Date/ Time Advance Directives No September 26, 2015 10:28am Living Will No November 26, 2023 12:44pm Power of Running Specialist No November 25 12:44pm Advance Directive Response Recorded Date/ Time Living Will No May 08 10:47pm Power of Running Specialist No May 08 10:47pm Advance Directives No September 11, 2024 3:03pm Living Will No August 02 12:49pm Power of Running Specialist No August 02, 2024 12:49pm Living Will No August 05 9:17pm Power of Running Specialist No August 05, 2024 9:17pm Living Will No August 09 4:38pm Power of Running Specialist No August 09, 2024 4:38pm Advance Directive Response Recorded Date/ Time Living Will No May 08 10:47pm Do you have a Healthcare Power of Running Specialist? No May 08, 2024 10:47pm Advance Directives No September 11, 2024 3:03pm Advance Directive Response Recorded Date/ Time Advance Directives No September 11, 2024 3:03pm Advance Directive Response Recorded Date/ Time Do you have a Healthcare Power of Running Specialist? No March 13, 2025 1:47pm Advance Directives No September 11, 2024 3:03pm Hospital Course Note HNO ID: [id number] Author: Da Knutson Service: Hospital Medicine Author [...] (more content not included)... Note HNO ID: [id number] Author: Becky Short Service: ? Author Type: Nurse Separator Tender Type: Anesthesia Procedure Notes Filed: 04/29/2020 3:27 PM Note Text: ANESTHESIOLOGY PROCEDURE NOTE Airway General Information Procedure Start Time/Medication Administration: 04/29/2020 3:21 PM Patient location during procedure: OR Patient identity confirmed: arm band Staffing Anesthesiologist: Apollo Reeder INSURANCE RATER: Day Short Performed by: CARLOS Indications and [...] (more content not included)... Note HNO ID: [id number] Author: Becky Short Service: ? Author Type: Nurse Separator Tender Type: Anesthesia Procedure Notes Filed: 04/29/2020 3:25 PM Note Text: ANESTHESIOLOGY PROCEDURE NOTE PIV General Information SIGNATURE: Day Short APRN.CRNA PATIENT NAME: Garland De Santiago DATE: April 29, 2020 TIME: 3:25 PM CSN: [id number] Note HNO ID: [id number] Author: Tyson Small Service: Neurosurgery Author Type: Physician Type: Brief Op Note Filed: 04/29/2020 5:05 PM Note Text: BRIEF OPERATIVE / PROCEDURE NOTE LOG ID: [id number] SURGERY/PROCEDURE DATE: 04/29/2020 INCISION/PROCEDURE START TIME: 3:22 PM INCISION CLOSE/PROCEDURE END TIME: 05.05 PM SURGEON(S)/PROCEDURALIST(S) AND DAMPENER OPERATOR(S): Surgeon(s) and Role: * Gerri Small - Primary Physician Carpentry Teacher: Deirdre Preciado (Pa) SURGERY/PROCEDURE(S): L4 laminectomy, decompression [...] not included)... Procedure Findings Note HNO ID: [id number] Author: Becky Short Service: ? Author Type: Nurse Separator Tender Type: Anesthesia Procedure Notes Filed: 04/29/2020 3:27 PM Note Text: ANESTHESIOLOGY PROCEDURE NOTE Airway General Information Procedure Start Time/Medication Administration: 04/29/2020 3:21 PM Patient location during procedure: OR Patient identity confirmed: arm band Staffing Anesthesiologist: Apollo Reeder INSURANCE RATER: Day Short Performed by: CARLOS Indications and [...] (more content not included)... Note HNO ID: [id number] Author: Becky Alba) Han Service: ? Author Type: Nurse Separator Tender Type: Anesthesia Procedure Notes Filed: 04/29/2020 3:25 PM Note Text: ANESTHESIOLOGY PROCEDURE NOTE PIV General Information SIGNATURE: Day Short APRN.CRNA PATIENT NAME: Garland De Santiago DATE: April 29, 2020 TIME: 3:25 PM CSN: [id number] Note HNO ID: [id number] Author: Tyson Small Service: Neurosurgery Author Type: Physician Type: Brief Op Note Filed: 04/29/2020 5:05 PM Note Text: BRIEF OPERATIVE / PROCEDURE NOTE LOG ID: [id number] SURGERY/PROCEDURE DATE: 04/29/2020 INCISION/PROCEDURE START TIME: 3:22 PM INCISION CLOSE/PROCEDURE END TIME: 05.05 PM SURGEON(S)/PROCEDURALIST(S) AND DAMPENER OPERATOR(S): Surgeon(s) and Role: * Gerri Small - Primary Physician Carpentry Teacher: Deirdre Preciado (Pa) SURGERY/PROCEDURE(S): L4 laminectomy, decompression [...] 5:00pm RUE/RLE; DM II W/ DIABETIC NEUROPATHY [facility] 2024 12:33pm RUE/RLE; DM II W/ DIABETIC NEUROPATHY [facility] 2024 2:07pm THORACIC/LUMBAR SPINE November 16, 2024 [...] 5:00pm RUE/RLE; DM II W/ DIABETIC NEUROPATHY [facility] 2024 12:33pm RUE/RLE; DM II W/ DIABETIC NEUROPATHY [facility] 2024 2:07pm THORACIC/LUMBAR SPINE November 16, 2024 [...] 5:00pm RUE/RLE; DM II W/ DIABETIC NEUROPATHY [facility] 2024 12:33pm RUE/RLE; DM II W/ DIABETIC NEUROPATHY [facility] 2024 2:07pm THORACIC/LUMBAR SPINE November 16, 2024 [...] neurogenic claudica tion December 24, 2024 2:06pm Chief Complaint Admit Date THORACIC/LUMBAR SPINE November 16, 2024 3 :32pm DDD,PAIN December 18, 2024 4:1 6pm LUMBAR SPINE December 24, 2024 2:0 6pm CERVICAL/LUMBAR SPINE February 04, 2025 3:3 1pm SOB March 13, 2025 1:12p m Reason for Visit Admit Date Degenerative disc disease, lumbar November 16, 2024 3:32pm Degenerative spondylolisthesis November 3:32pm Cervical myelopathy December 24, 2024 2:0 6pm Degenerative disc disease, lumbar December 24, 2024 2:06pm Lumbar stenosis with neurogenic claudica tion December 24, 2024 2:06pm Cervical myelopathy February 04, 2025 3:31p m Degenerative disc disease, lumbar February 042024 3:31pm Lumbar stenosis with neurogenic claudica tion February 04, 2025 3:31pm Chief Complaint Admit Date DDD,PAIN December 18, 2024 4:1 6pm LUMBAR SPINE December 24, 2024 2:0 6pm CERVICAL/LUMBAR SPINE February 04, 2025 3:3 1pm SOB March 13, 2025 1:12p m HEMORRHOIDS April 08, 2025 8:45 am Reason for Visit Admit Date Cervical myelopathy December 24, 2024 2:0 6pm Degenerative disc disease, lumbar December 24, 2024 2:06pm Lumbar stenosis with neurogenic claudica tion December 24, 2024 2:06pm Cervical myelopathy February 04, 2025 3:31p m Degenerative disc disease, lumbar February 042024 3:31pm Lumbar stenosis with neurogenic claudica tion February 04, 2025 3:31pm Reason for Referral Specialty Diagnoses / Procedures Referred By Contshmuel t Referred To Contact General Surgery Diagnoses Abdominal bloating Abdominal mass, unspecified abdominal location Procedures CONSULT TO GENERAL SURGERY OFFICE/OUTPATIENT [facility] 60-74 MINUTES Felipe Jolly, CHIEF PROGRAM OFFICER.UNDER CUTTING MACHINE OPERATOR [address] [place] [address] Referral ID Status Reason Start Date Expiration Date Visits Requested Visits Authorized [id number] Authorized PCP Requested Referral 02/06/2022 02/06/2023 1 [...] HIGH COMPLEX 45 MINS Willam Estrada MD [address] [place] [address] [facility] [address] [place] [address] Referral ID Status Reason Start Date Expiration Date Visits Requested Visits Authorized [id number] Authorized PCP Requested Referral Auto-Generate d Referral 04/06/2022 04/06/2023 99 99 Specialty Diagnoses / Procedures Referred By Contac t Referred To Contact MR IMAGING Diagnoses Acute bilateral low back pain with bilateral sciatica Radiculopathy of lumbar region Spinal stenosis of lumbar region with neurogenic claudication Procedures MRI LUMBAR SPINE WO IVCON MRI SPINAL CANAL LUMBAR W/O CONTRAST MATERIAL Willam Estrada MD [address] [place] [address] Mr Imaging Referral ID Status Reason Start Date Expiration Date Visits Requested Visits Authorized [id number] Authorized Auto-Generat ed Referral 2 09/06/2023 1 1 Specialty Diagnoses / Procedures Referred By Contac t Referred To Contact BR IMAGING Diagnoses Encounter for screening mammogram for breast cancer Procedures JAVIER SCREENING SCREENING MAMMOGRAPHY BI 2-VIEW BREAST INC CAD Willam Estrada MD [address] [place] [address] [facility] [address] [place] [address] Referral ID Status Reason Start Date Expiration Date Visits Requested Visits Authorized [id number] Authorized Auto-Generat ed Referral 2 09/06/2023 1 1 Specialty Diagnoses / Procedures Referred By Contac t Referred To Contact Urology Diagnoses Nocturnal enuresis Procedures CONSULT TO UROLOGY OFFICE/OUTPATIENT [facility] 60-74 MINUTES Allegra Berumen APRN.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 CUTTING MACHINE OPERATOR [address] [place] [address] Referral ID Status Reason Start Date Expiration Date Visits Requested Visits Authorized [id number] Authorized PCP Requested Referral 09/19/2022 09/19/2023 1 1 Specialty Diagnoses / Procedures Referred By Contac t Referred To Contact Pulmonary and Critical Care Medicine Diagnoses COPD with exacerbation (HCC) Procedures CONSULT TO PULM/CRITICAL CARE OFFICE/OUTPATIENT NEW [facility]DM 60-74 MINUTES Willam Estrada MD [address] [place] [address] Mona Corrigan MD [address] [place] [address] Referral ID Status Reason Start Date Expiration Date Visits Requested Visits Authorized [id number] Authorized PCP Requested Referral 12/18/2022 12/18/2023 1 1 Specialty Diagnoses / Procedures Referred By Contac t Referred To Contact MR IMAGING Diagnoses Acute bilateral low back pain with bilateral sciatica Radiculopathy of lumbar region Spinal stenosis of lumbar region with neurogenic claudication Procedures MRI LUMBAR SPINE WO IVCON MRI SPINAL CANAL LUMBAR W/O CONTRAST MATERIAL Willam Estrada MD [address] [place] [address] Mr Imaging [facility]95 Referral ID Status Reason Start Date Expiration Date V isits Requested Visits Authorized [id number] Closed Auto-Generate d Referral 08/07/2022 09/06/2023 1 1 Specialty Diagnoses / Procedures Referred By Contac t Referred To Contact CT IMAGING Diagnoses Tobacco use current Procedures CT LUNG SCREEN WO IVCON COMPUTED TOMOGRAPHY THORAX LW DOSE LNG CA SCR C- Abby, Justyna, CHIEF PROGRAM OFFICER.UNDER CUTTING MACHINE OPERATOR [address] [place] [address] Ct Imaging [facility]95 Referral ID Status Reason Start Date Expiration Date Visits Requested Visits Authorized [id number] Authorized Auto-Generat ed Referral 11/11/2023 12/10/2024 1 1 Referral ID Status Reason Start Date Expiration Date V isits Requested Visits Authorized [id number] Closed Auto-Generate d Referral 11/11/2023 12/10/2024 1 1 Referral ID Status Reason Start Date Expiration Date Visits Requested Visits Authorized [id number] Pending Review Auto-Generat ed Referral 11/25/2023 12/24/2024 1 1 Specialty Diagnoses / Procedures Referred By Milka t Referred To Contact Diagnoses Moderate persistent asthma without complication Willam Estrada MD [address] [place] [address] Referral ID Status Reason Start Date Expiration Date Visits Re quested Visits Authorized [id number] Closed 1 1 Referral ID Status Reason Start Date Expiration Date Visits Re quested Visits Authorized [id number] Closed 1 1 Specialty Diagnoses / Procedures Referred By Contac t Referred To Contact CT IMAGING Diagnoses Lung nodules Procedures CT CHEST WO IVCON DIAGNOSTIC COMPUTED TOMOGRAPHY THORAX W/O Mona Zuniga MD [address] [place] [address] Ct Imaging [place] [address] Referral ID Status Reason Start Date Expiration Date Visits Requested Visits Authorized [id number] Authorized Auto-Generat ed Referral 4 06/06/2025 1 1 Specialty Diagnoses / Procedures Referred By Contac t Referred To Contact Neurology Diagnoses Type 2 diabetes mellitus with diabetic neuropathy, without long-term current use of insulin (HCC) Procedures CONSULT TO NEUROLOGY OFFICE/OUTPATIENT [facility] 60 MINUTES Willam Estrada MD [address] [place] [address] Referral ID Status Reason Start Date Expiration Date Visits Requested Visits Authorized [id number] Authorized PCP Requested Referral 4 07/09/2025 1 [...] Risk Chronic Disease Home Monitoring Proble 01/23/2023 Active Problems Noted Date Diagnosed Date High Risk Chronic Disease Home Monitoring Proble m 01/23/2023 Active Problems Noted Date Diagnosed Date High Risk Chronic Disease Home Monitoring Proble m 01/23/2023 Active Problems Noted Date Diagnosed Date High Risk Chronic Disease Home Monitoring Proble 01/23/2023 Active Problems Noted Date Diagnosed Date High Risk Chronic Disease Home Monitoring Proble 01/23/2023 Active Problems Noted Date Diagnosed Date High Risk Chronic Disease Home Monitoring Proble 01/23/2023 Active Problems Noted Date Diagnosed Date High Risk Chronic Disease Home Monitoring Proble 01/23/2023 Additional Source Comments INFORMATION SOURCE (unrecogn ized section and content) DATE CREATED AUTHOR 03/04/2018 [facility] ([place]) DATE CREATED AUTHOR AUTHOR'S ORGANIZ ATION 08/16/2020 [facility] DATE CREATED AUTHOR AUTHOR'S ORGANIZ ATION 02/27/2022 [facility] DATE CREATED AUTHOR AUTHOR'S ORGANIZ ATION 03/28/2025 [facility] DATE CREATED AUTHOR AUTHOR'S ORGANIZ ATION 04/20/[address] [facility] Source Comments (unrecognize d section and content) In the event this informatio n is protected by the Federal Confidentiality of Alcohol and Drug Abuse Patient Records regulations: The Federal rules restrict any use of the information to criminally investigate or prosecute any alcohol or drug abuse patient.[facility] the event this information is protected by the Federal Confidentiality of Alcohol and Drug Abuse Patient Records regulations: The Federal rules restrict any use of the information to criminally investigate or prosecute any alcohol or drug abuse patient.[facility]In the event this information is protected by the Federal Confidentiality of Alcohol and Drug Abuse Patient Records regulations: The Federal rules restrict any use of the information to criminally investigate or prosecute any alcohol or drug abuse patient.[facility] HospitalIn the event this information is protected by the Federal Confidentiality of Alcohol and Drug Abuse Patient Records regulations: The Federal rules restrict any use of the information to criminally investigate or prosecute any alcohol or drug abuse patient.[facility] HospitalIn the event this information is protected by the Federal Confidentiality of Alcohol and Drug Abuse Patient Records regulations: The Federal rules restrict any use of the information to criminally investigate or prosecute any alcohol or drug abuse patient.[facility] HospitalIn the event this information is protected by the Federal Confidentiality of Alcohol and Drug Abuse Patient Records regulations: The Federal rules restrict any use of the information to criminally investigate or prosecute any alcohol or drug abuse patient.[facility] HospitalIn the event this information is protected by the Federal Confidentiality of Alcohol and Drug Abuse Patient Records regulations: The Federal rules restrict any use of the information to criminally investigate or prosecute any alcohol or drug abuse patient.[facility] HospitalIn the event this information is protected by the Federal Confidentiality of Alcohol and Drug Abuse Patient Records regulations: The Federal rules restrict any use of the information to criminally investigate or prosecute any alcohol or drug abuse patient.[facility] HospitalIn the event this information is protected by the Federal Confidentiality of Alcohol and Drug Abuse Patient Records regulations: The Federal rules restrict any use of the information to criminally investigate or prosecute any alcohol or drug abuse patient.[facility] HospitalIn the event this information is protected by the Federal Confidentiality of Alcohol and Drug Abuse Patient Records regulations: The Federal rules restrict any use of the information to criminally investigate or prosecute any alcohol or drug abuse patient.[facility] HospitalIn the event this information is protected by the Federal Confidentiality of Alcohol and Drug Abuse Patient Records regulations: The Federal rules restrict any use of the information to criminally investigate or prosecute any alcohol or drug abuse patient.[facility] HospitalIn the event this information is protected by the Federal Confidentiality of Alcohol and Drug Abuse Patient Records regulations: The Federal rules restrict any use of the information to criminally investigate or prosecute any alcohol or drug abuse patient.[facility] HospitalIn the event this information is protected by the Federal Confidentiality of Alcohol and Drug Abuse Patient Records regulations: The Federal rules restrict any use of the information to criminally investigate or prosecute any alcohol or drug abuse patient.[facility] HospitalIn the event this information is protected by the Federal Confidentiality of Alcohol and Drug Abuse Patient Records regulations: The Federal rules restrict any use of the information to criminally investigate or prosecute any alcohol or drug abuse patient.[facility] HospitalIn the event this information is protected by the Federal Confidentiality of Alcohol and Drug Abuse Patient Records regulations: The Federal rules restrict any use of the information to criminally investigate or prosecute any alcohol or drug abuse patient.[facility] HospitalIn the event this information is protected by the Federal Confidentiality of Alcohol and Drug Abuse Patient Records regulations: The Federal rules restrict any use of the information to criminally investigate or prosecute any alcohol or drug abuse patient.[facility] HospitalIn the event this information is protected by the Federal Confidentiality of Alcohol and Drug Abuse Patient Records regulations: The Federal rules restrict any use of the information to criminally investigate or prosecute any alcohol or drug abuse patient.[facility] HospitalIn the event this information is protected by the Federal Confidentiality of Alcohol and Drug Abuse Patient Records regulations: The Federal rules restrict any use of the information to criminally investigate or prosecute any alcohol or drug abuse patient.[facility] HospitalIn the event this information is protected by the Federal Confidentiality of Alcohol and Drug Abuse Patient Records regulations: The Federal rules restrict any use of the information to criminally investigate or prosecute any alcohol or drug abuse patient.[facility] HospitalIn the event this information is protected by the Federal Confidentiality of Alcohol and Drug Abuse Patient Records regulations: The Federal rules restrict any use of the information to criminally investigate or prosecute any alcohol or drug abuse patient.[facility] HospitalIn the event this information is protected by the Federal Confidentiality of Alcohol and Drug Abuse Patient Records regulations: The Federal rules restrict any use of the information to criminally investigate or prosecute any alcohol or drug abuse patient.[facility] HospitalIn the event this information is protected by the Federal Confidentiality of Alcohol and Drug Abuse Patient Records regulations: The Federal rules restrict any use of the information to criminally investigate or prosecute any alcohol or drug abuse patient.[facility] HospitalIn the event this information is protected by the Federal Confidentiality of Alcohol and Drug Abuse Patient Records regulations: The Federal rules restrict any use of the information to criminally investigate or prosecute any alcohol or drug abuse patient.[facility] HospitalIn the event this information is protected by the Federal Confidentiality of Alcohol and Drug Abuse Patient Records regulations: The Federal rules restrict any use of the information to criminally investigate or prosecute any alcohol or drug abuse patient.[facility] HospitalIn the event this information is protected by the Federal Confidentiality of Alcohol and Drug Abuse Patient Records regulations: The Federal rules restrict any use of the information to criminally investigate or prosecute any alcohol or drug abuse patient.[facility] HospitalIn the event this information is protected by the Federal Confidentiality of Alcohol and Drug Abuse Patient Records regulations: The Federal rules restrict any use of the information to criminally investigate or prosecute any alcohol or drug abuse patient.[facility] HospitalIn the event this information is protected by the Federal Confidentiality of Alcohol and Drug Abuse Patient Records regulations: The Federal rules restrict any use of the information to criminally investigate or prosecute any alcohol or drug abuse patient.[facility] HospitalIn the event this information is protected by the Federal Confidentiality of Alcohol and Drug Abuse Patient Records regulations: The Federal rules restrict any use of the information to criminally investigate or prosecute any alcohol or drug abuse patient.[facility] HospitalIn the event this information is protected by the Federal Confidentiality of Alcohol and Drug Abuse Patient Records regulations: The Federal rules restrict any use of the information to criminally investigate or prosecute any alcohol or drug abuse patient.[facility] HospitalIn the event this information is protected by the Federal Confidentiality of Alcohol and Drug Abuse Patient Records regulations: The Federal rules restrict any use of the information to criminally investigate or prosecute any alcohol or drug abuse patient.[facility] HospitalIn the event this information is protected by the Federal Confidentiality of Alcohol and Drug Abuse Patient Records regulations: The Federal rules restrict any use of the information to criminally investigate or prosecute any alcohol or drug abuse patient.[facility] HospitalIn the event this information is protected by the Federal Confidentiality of Alcohol and Drug Abuse Patient Records regulations: The Federal rules restrict any use of the information to criminally investigate or prosecute any alcohol or drug abuse patient.[facility] HospitalIn the event this information is protected by the Federal Confidentiality of Alcohol and Drug Abuse Patient Records regulations: The Federal rules restrict any use of the information to criminally investigate or prosecute any alcohol or drug abuse patient.[facility] HospitalIn the event this information is protected by the Federal Confidentiality of Alcohol and Drug Abuse Patient Records regulations: The Federal rules restrict any use of the information to criminally investigate or prosecute any alcohol or drug abuse patient.[facility] HospitalIn the event this information is protected by the Federal Confidentiality of Alcohol and Drug Abuse Patient Records regulations: The Federal rules restrict any use of the information to criminally investigate or prosecute any alcohol or drug abuse patient.[facility] HospitalIn the event this information is protected by the Federal Confidentiality of Alcohol and Drug Abuse Patient Records regulations: The Federal rules restrict any use of the information to criminally investigate or prosecute any alcohol or drug abuse patient.[facility] HospitalIn the event this information is protected by the Federal Confidentiality of Alcohol and Drug Abuse Patient Records regulations: The Federal rules restrict any use of the information to criminally investigate or prosecute any alcohol or drug abuse patient.[facility] HospitalIn the event this information is protected by the Federal Confidentiality of Alcohol and Drug Abuse Patient Records regulations: The Federal rules restrict any use of the information to criminally investigate or prosecute any alcohol or drug abuse patient.[facility] HospitalIn the event this information is protected by the Federal Confidentiality of Alcohol and Drug Abuse Patient Records regulations: The Federal rules restrict any use of the information to criminally investigate or prosecute any alcohol or drug abuse patient.[facility] HospitalIn the event this information is protected by the Federal Confidentiality of Alcohol and Drug Abuse Patient Records regulations: The Federal rules restrict any use of the information to criminally investigate or prosecute any alcohol or drug abuse patient.[facility] HospitalIn the event this information is protected by the Federal Confidentiality of Alcohol and Drug Abuse Patient Records regulations: The Federal rules restrict any use of the information to criminally investigate or prosecute any alcohol or drug abuse patient.[facility] HospitalIn the event this information is protected by the Federal Confidentiality of Alcohol and Drug Abuse Patient Records regulations: The Federal rules restrict any use of the information to criminally investigate or prosecute any alcohol or drug abuse patient.[facility] HospitalIn the event this information is protected by the Federal Confidentiality of Alcohol and Drug Abuse Patient Records regulations: The Federal rules restrict any use of the information to criminally investigate or prosecute any alcohol or drug abuse patient.[facility] HospitalIn the event this information is protected by the Federal Confidentiality of Alcohol and Drug Abuse Patient Records regulations: The Federal rules restrict any use of the information to criminally investigate or prosecute any alcohol or drug abuse patient.[facility] HospitalIn the event this information is protected by the Federal Confidentiality of Alcohol and Drug Abuse Patient Records regulations: The Federal rules restrict any use of the information to criminally investigate or prosecute any alcohol or drug abuse patient.[facility] HospitalIn the event this information is protected by the Federal Confidentiality of Alcohol and Drug Abuse Patient Records regulations: The Federal rules restrict any use of the information to criminally investigate or prosecute any alcohol or drug abuse patient.[facility] HospitalIn the event this information is protected by the Federal Confidentiality of Alcohol and Drug Abuse Patient Records regulations: The Federal rules restrict any use of the information to criminally investigate or prosecute any alcohol or drug abuse patient.[facility] HospitalIn the event this information is protected by the Federal Confidentiality of Alcohol and Drug Abuse Patient Records regulations: The Federal rules restrict any use of the information to criminally investigate or prosecute any alcohol or drug abuse patient.[facility] HospitalIn the event this information is protected by the Federal Confidentiality of Alcohol and Drug Abuse Patient Records regulations: The Federal rules restrict any use of the information to criminally investigate or prosecute any alcohol or drug abuse patient.[facility] HospitalIn the event this information is protected by the Federal Confidentiality of Alcohol and Drug Abuse Patient Records regulations: The Federal rules restrict any use of the information to criminally investigate or prosecute any alcohol or drug abuse patient.[facility] HospitalIn the event this information is protected by the Federal Confidentiality of Alcohol and Drug Abuse Patient Records regulations: The Federal rules restrict any use of the information to criminally investigate or prosecute any alcohol or drug abuse patient.[facility] HospitalIn the event this information is protected by the Federal Confidentiality of Alcohol and Drug Abuse Patient Records regulations: The Federal rules restrict any use of the information to criminally investigate or prosecute any alcohol or drug abuse patient.[facility] HospitalIn the event this information is protected by the Federal Confidentiality of Alcohol and Drug Abuse Patient Records regulations: The Federal rules restrict any use of the information to criminally investigate or prosecute any alcohol or drug abuse patient.[facility] HospitalIn the event this information is protected by the Federal Confidentiality of Alcohol and Drug Abuse Patient Records regulations: The Federal rules restrict any use of the information to criminally investigate or prosecute any alcohol or drug abuse patient.[facility] HospitalIn the event this information is protected by the Federal Confidentiality of Alcohol and Drug Abuse Patient Records regulations: The Federal rules restrict any use of the information to criminally investigate or prosecute any alcohol or drug abuse patient.[facility] HospitalIn the event this information is protected by the Federal Confidentiality of Alcohol and Drug Abuse Patient Records regulations: The Federal rules restrict any use of the information to criminally investigate or prosecute any alcohol or drug abuse patient.[facility] HospitalIn the event this information is protected by the Federal Confidentiality of Alcohol and Drug Abuse Patient Records regulations: The Federal rules restrict any use of the information to criminally investigate or prosecute any alcohol or drug abuse patient.[facility] HospitalIn the event this information is protected by the Federal Confidentiality of Alcohol and Drug Abuse Patient Records regulations: The Federal rules restrict any use of the information to criminally investigate or prosecute any alcohol or drug abuse patient.[facility] HospitalIn the event this information is protected by the Federal Confidentiality of Alcohol and Drug Abuse Patient Records regulations: The Federal rules restrict any use of the information to criminally investigate or prosecute any alcohol or drug abuse patient.[facility] HospitalIn the event this information is protected by the Federal Confidentiality of Alcohol and Drug Abuse Patient Records regulations: The Federal rules restrict any use of the information to criminally investigate or prosecute any alcohol or drug abuse patient.[facility] HospitalIn the event this information is protected by the Federal Confidentiality of Alcohol and Drug Abuse Patient Records regulations: The Federal rules restrict any use of the information to criminally investigate or prosecute any alcohol or drug abuse patient.[facility] HospitalIn the event this information is protected by the Federal Confidentiality of Alcohol and Drug Abuse Patient Records regulations: The Federal rules restrict any use of the information to criminally investigate or prosecute any alcohol or drug abuse patient.[facility] HospitalIn the event this information is protected by the Federal Confidentiality of Alcohol and Drug Abuse Patient Records regulations: The Federal rules restrict any use of the information to criminally investigate or prosecute any alcohol or drug abuse patient.[facility] HospitalIn the event this information is protected by the Federal Confidentiality of Alcohol and Drug Abuse Patient Records regulations: The Federal rules restrict any use of the information to criminally investigate or prosecute any alcohol or drug abuse patient.[facility] HospitalIn the event this information is protected by the Federal Confidentiality of Alcohol and Drug Abuse Patient Records regulations: The Federal rules restrict any use of the information to criminally investigate or prosecute any alcohol or drug abuse patient.[facility] HospitalIn the event this information is protected by the Federal Confidentiality of Alcohol and Drug Abuse Patient Records regulations: The Federal rules restrict any use of the information to criminally investigate or prosecute any alcohol or drug abuse patient.[facility] HospitalIn the event this information is protected by the Federal Confidentiality of Alcohol and Drug Abuse Patient Records regulations: The Federal rules restrict any use of the information to criminally investigate or prosecute any alcohol or drug abuse patient.[facility] HospitalIn the event this information is protected by the Federal Confidentiality of Alcohol and Drug Abuse Patient Records regulations: The Federal rules restrict any use of the information to criminally investigate or prosecute any alcohol or drug abuse patient.[facility] HospitalIn the event this information is protected by the Federal Confidentiality of Alcohol and Drug Abuse Patient Records regulations: The Federal rules restrict any use of the information to criminally investigate or prosecute any alcohol or drug abuse patient.[facility] HospitalIn the event this information is protected by the Federal Confidentiality of Alcohol and Drug Abuse Patient Records regulations: The Federal rules restrict any use of the information to criminally investigate or prosecute any alcohol or drug abuse patient.[facility] HospitalIn the event this information is protected by the Federal Confidentiality of Alcohol and Drug Abuse Patient Records regulations: The Federal rules restrict any use of the information to criminally investigate or prosecute any alcohol or drug abuse patient.[facility] HospitalIn the event this information is protected by the Federal Confidentiality of Alcohol and Drug Abuse Patient Records regulations: The Federal rules restrict any use of the information to criminally investigate or prosecute any alcohol or drug abuse patient.[facility] HospitalIn the event this information is protected by the Federal Confidentiality of Alcohol and Drug Abuse Patient Records regulations: The Federal rules restrict any use of the information to criminally investigate or prosecute any alcohol or drug abuse patient.[facility] HospitalIn the event this information is protected by the Federal Confidentiality of Alcohol and Drug Abuse Patient Records regulations: The Federal rules restrict any use of the information to criminally investigate or prosecute any alcohol or drug abuse patient.[facility] HospitalIn the event this information is protected by the Federal Confidentiality of Alcohol and Drug Abuse Patient Records regulations: The Federal rules restrict any use of the information to criminally investigate or prosecute any alcohol or drug abuse patient.[facility] HospitalIn the event this information is protected by the Federal Confidentiality of Alcohol and Drug Abuse Patient Records regulations: The Federal rules restrict any use of the information to criminally investigate or prosecute any alcohol or drug abuse patient.[facility] HospitalIn the event this information is protected by the Federal Confidentiality of Alcohol and Drug Abuse Patient Records regulations: The Federal rules restrict any use of the information to criminally investigate or prosecute any alcohol or drug abuse patient.[facility] HospitalIn the event this information is protected by the Federal Confidentiality of Alcohol and Drug Abuse Patient Records regulations: The Federal rules restrict any use of the information to criminally investigate or prosecute any alcohol or drug abuse patient.[facility] HospitalIn the event this information is protected by the Federal Confidentiality of Alcohol and Drug Abuse Patient Records regulations: The Federal rules restrict any use of the information to criminally investigate or prosecute any alcohol or drug abuse patient.[facility] HospitalIn the event this information is protected by the Federal Confidentiality of Alcohol and Drug Abuse Patient Records regulations: The Federal rules restrict any use of the information to criminally investigate or prosecute any alcohol or drug abuse patient.[facility] HospitalIn the event this information is protected by the Federal Confidentiality of Alcohol and Drug Abuse Patient Records regulations: The Federal rules restrict any use of the information to criminally investigate or prosecute any alcohol or drug abuse patient.[facility] HospitalIn the event this information is protected by the Federal Confidentiality of Alcohol and Drug Abuse Patient Records regulations: The Federal rules restrict any use of the information to criminally investigate or prosecute any alcohol or drug abuse patient.[facility] HospitalIn the event this information is protected by the Federal Confidentiality of Alcohol and Drug Abuse Patient Records regulations: The Federal rules restrict any use of the information to criminally investigate or prosecute any alcohol or drug abuse patient.[facility] HospitalIn the event this information is protected by the Federal Confidentiality of Alcohol and Drug Abuse Patient Records regulations: The Federal rules restrict any use of the information to criminally investigate or prosecute any alcohol or drug abuse patient.[facility] HospitalIn the event this information is protected by the Federal Confidentiality of Alcohol and Drug Abuse Patient Records regulations: The Federal rules restrict any use of the information to criminally investigate or prosecute any alcohol or drug abuse patient.[facility] HospitalIn the event this information is protected by the Federal Confidentiality of Alcohol and Drug Abuse Patient Records regulations: The Federal rules restrict any use of the information to criminally investigate or prosecute any alcohol or drug abuse patient.[facility] HospitalIn the event this information is protected by the Federal Confidentiality of Alcohol and Drug Abuse Patient Records regulations: The Federal rules restrict any use of the information to criminally investigate or prosecute any alcohol or drug abuse patient.[facility] HospitalIn the event this information is protected by the Federal Confidentiality of Alcohol and Drug Abuse Patient Records regulations: The Federal rules restrict any use of the information to criminally investigate or prosecute any alcohol or drug abuse patient.[facility] HospitalIn the event this information is protected by the Federal Confidentiality of Alcohol and Drug Abuse Patient Records regulations: The Federal rules restrict any use of the information to criminally investigate or prosecute any alcohol or drug abuse patient.[facility] HospitalIn the event this information is protected by the Federal Confidentiality of Alcohol and Drug Abuse Patient Records regulations: The Federal rules restrict any use of the information to criminally investigate or prosecute any alcohol or drug abuse patient.[facility] HospitalIn the event this information is protected by the Federal Confidentiality of Alcohol and Drug Abuse Patient Records regulations: The Federal rules restrict any use of the information to criminally investigate or prosecute any alcohol or drug abuse patient.[facility] HospitalIn the event this information is protected by the Federal Confidentiality of Alcohol and Drug Abuse Patient Records regulations: The Federal rules restrict any use of the information to criminally investigate or prosecute any alcohol or drug abuse patient.[facility] HospitalIn the event this information is protected by the Federal Confidentiality of Alcohol and Drug Abuse Patient Records regulations: The Federal rules restrict any use of the information to criminally investigate or prosecute any alcohol or drug abuse patient.[facility] HospitalIn the event this information is protected by the Federal Confidentiality of Alcohol and Drug Abuse Patient Records regulations: The Federal rules restrict any use of the information to criminally investigate or prosecute any alcohol or drug abuse patient.[facility] HospitalIn the event this information is protected by the Federal Confidentiality of Alcohol and Drug Abuse Patient Records regulations: The Federal rules restrict any use of the information to criminally investigate or prosecute any alcohol or drug abuse patient.[facility] HospitalIn the event this information is protected by the Federal Confidentiality of Alcohol and Drug Abuse Patient Records regulations: The Federal rules restrict any use of the information to criminally investigate or prosecute any alcohol or drug abuse patient.[facility] HospitalIn the event this information is protected by the Federal Confidentiality of Alcohol and Drug Abuse Patient Records regulations: The Federal rules restrict any use of the information to criminally investigate or prosecute any alcohol or drug abuse patient.[facility] HospitalIn the event this information is protected by the Federal Confidentiality of Alcohol and Drug Abuse Patient Records regulations: The Federal rules restrict any use of the information to criminally investigate or prosecute any alcohol or drug abuse patient.[facility] HospitalIn the event this information is protected by the Federal Confidentiality of Alcohol and Drug Abuse Patient Records regulations: The Federal rules restrict any use of the information to criminally investigate or prosecute any alcohol or drug abuse patient.[facility] HospitalIn the event this information is protected by the Federal Confidentiality of Alcohol and Drug Abuse Patient Records regulations: The Federal rules restrict any use of the information to criminally investigate or prosecute any alcohol or drug abuse patient.[facility] HospitalIn the event this information is protected by the Federal Confidentiality of Alcohol and Drug Abuse Patient Records regulations: The Federal rules restrict any use of the information to criminally investigate or prosecute any alcohol or drug abuse patient.[facility] HospitalIn the event this information is protected by the Federal Confidentiality of Alcohol and Drug Abuse Patient Records regulations: The Federal rules restrict any use of the information to criminally investigate or prosecute any alcohol or drug abuse patient.[facility] HospitalIn the event this information is protected by the Federal Confidentiality of Alcohol and Drug Abuse Patient Records regulations: The Federal rules restrict any use of the information to criminally investigate or prosecute any alcohol or drug abuse patient.[facility] HospitalIn the event this information is protected by the Federal Confidentiality of Alcohol and Drug Abuse Patient Records regulations: The Federal rules restrict any use of the information to criminally investigate or prosecute any alcohol or drug abuse patient.[facility] HospitalIn the event this information is protected by the Federal Confidentiality of Alcohol and Drug Abuse Patient Records regulations: The Federal rules restrict any use of the information to criminally investigate or prosecute any alcohol or drug abuse patient.[facility] HospitalIn the event this information is protected by the Federal Confidentiality of Alcohol and Drug Abuse Patient Records regulations: The Federal rules restrict any use of the information to criminally investigate or prosecute any alcohol or drug abuse patient.[facility] HospitalIn the event this information is protected by the Federal Confidentiality of Alcohol and Drug Abuse Patient Records regulations: The Federal rules restrict any use of the information to criminally investigate or prosecute any alcohol or drug abuse patient.[facility] HospitalIn the event this information is protected by the Federal Confidentiality of Alcohol and Drug Abuse Patient Records regulations: The Federal rules restrict any use of the information to criminally investigate or prosecute any alcohol or drug abuse patient.[facility] HospitalIn the event this information is protected by the Federal Confidentiality of Alcohol and Drug Abuse Patient Records regulations: The Federal rules restrict any use of the information to criminally investigate or prosecute any alcohol or drug abuse patient.[facility] HospitalIn the event this information is protected by the Federal Confidentiality of Alcohol and Drug Abuse Patient Records regulations: The Federal rules restrict any use of the information to criminally investigate or prosecute any alcohol or drug abuse patient.[facility]In the event this information is protected by the Federal Confidentiality of Alcohol and Drug Abuse Patient Records regulations: The Federal rules restrict any use of the information to criminally investigate or prosecute any alcohol or drug abuse patient.[facility] HospitalIn the event this information is protected by the Federal Confidentiality of Alcohol and Drug Abuse Patient Records regulations: The Federal rules restrict any use of the information to criminally investigate or prosecute any alcohol or drug abuse patient.[facility] HospitalIn the event this information is protected by the Federal Confidentiality of Alcohol and Drug Abuse Patient Records regulations: The Federal rules restrict any use of the information to criminally investigate or prosecute any alcohol or drug abuse patient.[facility] HospitalIn the event this information is protected by the Federal Confidentiality of Alcohol and Drug Abuse Patient Records regulations: The Federal rules restrict any use of the information to criminally investigate or prosecute any alcohol or drug abuse patient.[facility] HospitalIn the event this information is protected by the Federal Confidentiality of Alcohol and Drug Abuse Patient Records regulations: The Federal rules restrict any use of the information to criminally investigate or prosecute any alcohol or drug abuse patient.[facility] HospitalIn the event this information is protected by the Federal Confidentiality of Alcohol and Drug Abuse Patient Records regulations: The Federal rules restrict any use of the information to criminally investigate or prosecute any alcohol or drug abuse patient.[facility] HospitalIn the event this information is protected by the Federal Confidentiality of Alcohol and Drug Abuse Patient Records regulations: The Federal rules restrict any use of the information to criminally investigate or prosecute any alcohol or drug abuse patient.[facility] HospitalIn the event this information is protected by the Federal Confidentiality of Alcohol and Drug Abuse Patient Records regulations: The Federal rules restrict any use of the information to criminally investigate or prosecute any alcohol or drug abuse patient.[facility] HospitalIn the event this information is protected by the Federal Confidentiality of Alcohol and Drug Abuse Patient Records regulations: The Federal rules restrict any use of the information to criminally investigate or prosecute any alcohol or drug abuse patient.[facility] HospitalIn the event this information is protected by the Federal Confidentiality of Alcohol and Drug Abuse Patient Records regulations: The Federal rules restrict any use of the information to criminally investigate or prosecute any alcohol or drug abuse patient.[facility] HospitalIn the event this information is protected by the Federal Confidentiality of Alcohol and Drug Abuse Patient Records regulations: The Federal rules restrict any use of the information to criminally investigate or prosecute any alcohol or drug abuse patient.[facility] HospitalIn the event this information is protected by the Federal Confidentiality of Alcohol and Drug Abuse Patient Records regulations: The Federal rules restrict any use of the information to criminally investigate or prosecute any alcohol or drug abuse patient.[facility] HospitalIn the event this information is protected by the Federal Confidentiality of Alcohol and Drug Abuse Patient Records regulations: The Federal rules restrict any use of the information to criminally investigate or prosecute any alcohol or drug abuse patient.[facility] HospitalIn the event this information is protected by the Federal Confidentiality of Alcohol and Drug Abuse Patient Records regulations: The Federal rules restrict any use of the information to criminally investigate or prosecute any alcohol or drug abuse patient.[facility] HospitalIn the event this information is protected by the Federal Confidentiality of Alcohol and Drug Abuse Patient Records regulations: The Federal rules restrict any use of the information to criminally investigate or prosecute any alcohol or drug abuse patient.[facility] HospitalIn the event this information is protected by the Federal Confidentiality of Alcohol and Drug Abuse Patient Records regulations: The Federal rules restrict any use of the information to criminally investigate or prosecute any alcohol or drug abuse patient.[facility] HospitalIn the event this information is protected by the Federal Confidentiality of Alcohol and Drug Abuse Patient Records regulations: The Federal rules restrict any use of the information to criminally investigate or prosecute any alcohol or drug abuse patient.[facility] HospitalIn the event this information is protected by the Federal Confidentiality of Alcohol and Drug Abuse Patient Records regulations: The Federal rules restrict any use of the information to criminally investigate or prosecute any alcohol or drug abuse patient.[facility] HospitalIn the event this information is protected by the Federal Confidentiality of Alcohol and Drug Abuse Patient Records regulations: The Federal rules restrict any use of the information to criminally investigate or prosecute any alcohol or drug abuse patient.[facility] HospitalIn the event this information is protected by the Federal Confidentiality of Alcohol and Drug Abuse Patient Records regulations: The Federal rules restrict any use of the information to criminally investigate or prosecute any alcohol or drug abuse patient.[facility] HospitalIn the event this information is protected by the Federal Confidentiality of Alcohol and Drug Abuse Patient Records regulations: The Federal rules restrict any use of the information to criminally investigate or prosecute any alcohol or drug abuse patient.[facility] HospitalIn the event this information is protected by the Federal Confidentiality of Alcohol and Drug Abuse Patient Records regulations: The Federal rules restrict any use of the information to criminally investigate or prosecute any alcohol or drug abuse patient.[facility] HospitalIn the event this information is protected by the Federal Confidentiality of Alcohol and Drug Abuse Patient Records regulations: The Federal rules restrict any use of the information to criminally investigate or prosecute any alcohol or drug abuse patient.[facility] HospitalIn the event this information is protected by the Federal Confidentiality of Alcohol and Drug Abuse Patient Records regulations: The Federal rules restrict any use of the information to criminally investigate or prosecute any alcohol or drug abuse patient.[facility] HospitalIn the event this information is protected by the Federal Confidentiality of Alcohol and Drug Abuse Patient Records regulations: The Federal rules restrict any use of the information to criminally investigate or prosecute any alcohol or drug abuse patient.[facility] HospitalIn the event this information is protected by the Federal Confidentiality of Alcohol and Drug Abuse Patient Records regulations: The Federal rules restrict any use of the information to criminally investigate or prosecute any alcohol or drug abuse patient.[facility] HospitalIn the event this information is protected by the Federal Confidentiality of Alcohol and Drug Abuse Patient Records regulations: The Federal rules restrict any use of the information to criminally investigate or prosecute any alcohol or drug abuse patient.[facility] HospitalIn the event this information is protected by the Federal Confidentiality of Alcohol and Drug Abuse Patient Records regulations: The Federal rules restrict any use of the information to criminally investigate or prosecute any alcohol or drug abuse patient.[facility] HospitalIn the event this information is protected by the Federal Confidentiality of Alcohol and Drug Abuse Patient Records regulations: The Federal rules restrict any use of the information to criminally investigate or prosecute any alcohol or drug abuse patient.[facility] HospitalIn the event this information is protected by the Federal Confidentiality of Alcohol and Drug Abuse Patient Records regulations: The Federal rules restrict any use of the information to criminally investigate or prosecute any alcohol or drug abuse patient.[facility] HospitalIn the event this information is protected by the Federal Confidentiality of Alcohol and Drug Abuse Patient Records regulations: The Federal rules restrict any use of the information to criminally investigate or prosecute any alcohol or drug abuse patient.[facility] HospitalIn the event this information is protected by the Federal Confidentiality of Alcohol and Drug Abuse Patient Records regulations: The Federal rules restrict any use of the information to criminally investigate or prosecute any alcohol or drug abuse patient.[facility] HospitalIn the event this information is protected by the Federal Confidentiality of Alcohol and Drug Abuse Patient Records regulations: The Federal rules restrict any use of the information to criminally investigate or prosecute any alcohol or drug abuse patient.[facility] HospitalIn the event this information is protected by the Federal Confidentiality of Alcohol and Drug Abuse Patient Records regulations: The Federal rules restrict any use of the information to criminally investigate or prosecute any alcohol or drug abuse patient.[facility] HospitalIn the event this information is protected by the Federal Confidentiality of Alcohol and Drug Abuse Patient Records regulations: The Federal rules restrict any use of the information to criminally investigate or prosecute any alcohol or drug abuse patient.[facility] HospitalIn the event this information is protected by the Federal Confidentiality of Alcohol and Drug Abuse Patient Records regulations: The Federal rules restrict any use of the information to criminally investigate or prosecute any alcohol or drug abuse patient.[facility] HospitalIn the event this information is protected by the Federal Confidentiality of Alcohol and Drug Abuse Patient Records regulations: The Federal rules restrict any use of the information to criminally investigate or prosecute any alcohol or drug abuse patient.[facility] HospitalIn the event this information is protected by the Federal Confidentiality of Alcohol and Drug Abuse Patient Records regulations: The Federal rules restrict any use of the information to criminally investigate or prosecute any alcohol or drug abuse patient.[facility] HospitalIn the event this information is protected by the Federal Confidentiality of Alcohol and Drug Abuse Patient Records regulations: The Federal rules restrict any use of the information to criminally investigate or prosecute any alcohol or drug abuse patient.[facility] HospitalIn the event this information is protected by the Federal Confidentiality of Alcohol and Drug Abuse Patient Records regulations: The Federal rules restrict any use of the information to criminally investigate or prosecute any alcohol or drug abuse patient.[facility] HospitalIn the event this information is protected by the Federal Confidentiality of Alcohol and Drug Abuse Patient Records regulations: The Federal rules restrict any use of the information to criminally investigate or prosecute any alcohol or drug abuse patient.[facility] HospitalIn the event this information is protected by the Federal Confidentiality of Alcohol and Drug Abuse Patient Records regulations: The Federal rules restrict any use of the information to criminally investigate or prosecute any alcohol or drug abuse patient.[facility] HospitalIn the event this information is protected by the Federal Confidentiality of Alcohol and Drug Abuse Patient Records regulations: The Federal rules restrict any use of the information to criminally investigate or prosecute any alcohol or drug abuse patient.[facility] HospitalIn the event this information is protected by the Federal Confidentiality of Alcohol and Drug Abuse Patient Records regulations: The Federal rules restrict any use of the information to criminally investigate or prosecute any alcohol or drug abuse patient.[facility] HospitalIn the event this information is protected by the Federal Confidentiality of Alcohol and Drug Abuse Patient Records regulations: The Federal rules restrict any use of the information to criminally investigate or prosecute any alcohol or drug abuse patient.[facility] HospitalIn the event this information is protected by the Federal Confidentiality of Alcohol and Drug Abuse Patient Records regulations: The Federal rules restrict any use of the information to criminally investigate or prosecute any alcohol or drug abuse patient.[facility] HospitalIn the event this information is protected by the Federal Confidentiality of Alcohol and Drug Abuse Patient Records regulations: The Federal rules restrict any use of the information to criminally investigate or prosecute any alcohol or drug abuse patient.[facility] HospitalIn the event this information is protected by the Federal Confidentiality of Alcohol and Drug Abuse Patient Records regulations: The Federal rules restrict any use of the information to criminally investigate or prosecute any alcohol or drug abuse patient.[facility] HospitalIn the event this information is protected by the Federal Confidentiality of Alcohol and Drug Abuse Patient Records regulations: The Federal rules restrict any use of the information to criminally investigate or prosecute any alcohol or drug abuse patient.[facility] HospitalIn the event this information is protected by the Federal Confidentiality of Alcohol and Drug Abuse Patient Records regulations: The Federal rules restrict any use of the information to criminally investigate or prosecute any alcohol or drug abuse patient.[facility] HospitalIn the event this information is protected by the Federal Confidentiality of Alcohol and Drug Abuse Patient Records regulations: The Federal rules restrict any use of the information to criminally investigate or prosecute any alcohol or drug abuse patient.[facility] HospitalIn the event this information is protected by the Federal Confidentiality of Alcohol and Drug Abuse Patient Records regulations: The Federal rules restrict any use of the information to criminally investigate or prosecute any alcohol or drug abuse patient.[facility] HospitalIn the event this information is protected by the Federal Confidentiality of Alcohol and Drug Abuse Patient Records regulations: The Federal rules restrict any use of the information to criminally investigate or prosecute any alcohol or drug abuse patient.[facility] HospitalIn the event this information is protected by the Federal Confidentiality of Alcohol and Drug Abuse Patient Records regulations: The Federal rules restrict any use of the information to criminally investigate or prosecute any alcohol or drug abuse patient.[facility] HospitalIn the event this information is protected by the Federal Confidentiality of Alcohol and Drug Abuse Patient Records regulations: The Federal rules restrict any use of the information to criminally investigate or prosecute any alcohol or drug abuse patient.[facility] HospitalIn the event this information is protected by the Federal Confidentiality of Alcohol and Drug Abuse Patient Records regulations: The Federal rules restrict any use of the information to criminally investigate or prosecute any alcohol or drug abuse patient.[facility] HospitalIn the event this information is protected by the Federal Confidentiality of Alcohol and Drug Abuse Patient Records regulations: The Federal rules restrict any use of the information to criminally investigate or prosecute any alcohol or drug abuse patient.[facility] HospitalIn the event this information is protected by the Federal Confidentiality of Alcohol and Drug Abuse Patient Records regulations: The Federal rules restrict any use of the information to criminally investigate or prosecute any alcohol or drug abuse patient.[facility] HospitalIn the event this information is protected by the Federal Confidentiality of Alcohol and Drug Abuse Patient Records regulations: The Federal rules restrict any use of the information to criminally investigate or prosecute any alcohol or drug abuse patient.[facility] HospitalIn the event this information is protected by the Federal Confidentiality of Alcohol and Drug Abuse Patient Records regulations: The Federal rules restrict any use of the information to criminally investigate or prosecute any alcohol or drug abuse patient.[facility] HospitalIn the event this information is protected by the Federal Confidentiality of Alcohol and Drug Abuse Patient Records regulations: The Federal rules restrict any use of the information to criminally investigate or prosecute any alcohol or drug abuse patient.[facility] HospitalIn the event this information is protected by the Federal Confidentiality of Alcohol and Drug Abuse Patient Records regulations: The Federal rules restrict any use of the information to criminally investigate or prosecute any alcohol or drug abuse patient.[facility] HospitalIn the event this information is protected by the Federal Confidentiality of Alcohol and Drug Abuse Patient Records regulations: The Federal rules restrict any use of the information to criminally investigate or prosecute any alcohol or drug abuse patient.[facility] HospitalIn the event this information is protected by the Federal Confidentiality of Alcohol and Drug Abuse Patient Records regulations: The Federal rules restrict any use of the information to criminally investigate or prosecute any alcohol or drug abuse patient.[facility] HospitalIn the event this information is protected by the Federal Confidentiality of Alcohol and Drug Abuse Patient Records regulations: The Federal rules restrict any use of the information to criminally investigate or prosecute any alcohol or drug abuse patient.[facility] HospitalIn the event this information is protected by the Federal Confidentiality of Alcohol and Drug Abuse Patient Records regulations: The Federal rules restrict any use of the information to criminally investigate or prosecute any alcohol or drug abuse patient.[facility] HospitalIn the event this information is protected by the Federal Confidentiality of Alcohol and Drug Abuse Patient Records regulations: The Federal rules restrict any use of the information to criminally investigate or prosecute any alcohol or drug abuse patient.[facility] HospitalIn the event this information is protected by the Federal Confidentiality of Alcohol and Drug Abuse Patient Records regulations: The Federal rules restrict any use of the information to criminally investigate or prosecute any alcohol or drug abuse patient.[facility] HospitalIn the event this information is protected by the Federal Confidentiality of Alcohol and Drug Abuse Patient Records regulations: The Federal rules restrict any use of the information to criminally investigate or prosecute any alcohol or drug abuse patient.[facility] Reason for Visit (unrecogniz ed section and content) Reason Comments PT Progress Note Specialty Diagnoses / Procedures Referred By Milka t Referred To Contact [facility] Diagnoses S/P lumbar laminectomy Chronic midline low back pain, unspecified whether sciatica present Spinal stenosis of lumbar region, unspecified whether neurogenic claudication present Gait instability Procedures CONSULT TO PHYSICAL THERAPY PHYSICAL THERAPY EVALUATION HIGH COMPLEX 45 MINS Willam Estrada MD [address] [place] [address] [facility] [address] [place] [address] Referral ID Status Reason Start Date Expiration Date Visits Requested Visits Authorized [id number] Authorized PCP Requested Referral Auto-Generate d Referral 04/06/2022 04/06/2023 99 99 Reason Comments Physical Therapy Reason Comments Medication Request Reason Onset Date Comments community monitoring outreach 12/13/2021 en rollment Reason Onset Date Comments community monitoring outreach 12/18/2021 en rollment Reason Comments Established Patient 2 month follow up Reason Comments [facility] Reason Comments Diarrhea ongoing, now has blo ating and knot in abdominal area x this am Reason Comments Consult abdomen mass, bloati ng Specialty Diagnoses / Procedures Referred By Milka ulloa Referred To Contact General Surgery Diagnoses Abdominal bloating Abdominal mass, unspecified abdominal location Procedures CONSULT TO GENERAL SURGERY OFFICE/OUTPATIENT NEW HIGH MDM 60-74 MINUTES Felipe Jolly APRN.UNDER CUTTING MACHINE OPERATOR [address] [place] [address] Referral ID Status Reason Start Date Expiration Date V isits Requested Visits Authorized [id number] Closed PCP Requested Referral 02/06/2022 02/06/2023 1 1 Reason Onset Date Comments Refill Request 02/23/2022 Reason Comments Follow Up Reason Comments 02-22-2022 COLON EGD LODI Reason Comments Hematuria Reason Comments PT Eval Reason Onset Date Comments Refill Request 04/11/2022 Reason Onset Date Comments Community monitoring outreach 05/15/2022 CD M [facility] triggered call Reason Onset Date Comments Refill Request 06/11/2022 Refill Request 06/12/2022 Reason Comments Follow Up Reason Comments Wheezing With LUNA x2 weeks UTI Painful urination, f requency, [...] maybe circulation issue Reason Comments Cough Cough, LUNA, ST, wheez ing, SOB and burning chest x 3 days Reason Onset Date Comments Community monitoring outreach 12/04/2022 CD M [facility] triggered escalation Reason Onset Date [...] Comments Community Monitoring Outreach 03/14/2023 CD M Engagement Outreach Reason Comments Spirometry Specialty Diagnoses / Procedures Referred By Milka Referred To [facility] Diagnoses Stage 2 moderate COPD by GOLD classification ([facility]) Procedures LUNG DIFFUSION CAPACITY (DLCO) DIFFUSING CAPACITY Leila Rubi, CARI [address] [place] [address] [facility] [place] [address] [place] [address] Referral ID Status Reason Start Date Expiration Date V isits Requested Visits Authorized [id number] Closed Auto-Generate d Referral 12/21/2022 01/20/2024 1 1 Specialty Diagnoses / Procedures Referred By Milka Referred To [facility] Diagnoses Stage 2 moderate COPD by GOLD classification ([facility]) Procedures SPIROMETRY BASELINE ONLY SPMTRY W/VC EXPIRATORY WEST W/WO MXML VOL VNTJ Leila Rubi PA-C [address] [place] [address] [facility] [place] [address] [place] [address] Referral ID Status Reason Start Date Expiration Date V isits Requested Visits Authorized [id number] Closed Auto-Generate d Referral 12/21/2022 01/20/2024 1 1 Reason Comments COPD Asthma Reason Comments Chest Congestion wheezing, headache g iven omnicef on 05/24 Reason Comments ER F/U [facility] ER pm 05/26/2023 and 05/30/2023 with hives. [...] W/O CONTRAST MATERIAL Willam Estrada MD [address] [place] [id number] [id number] Referral ID Status Reason Start Date Expiration Date V isits Requested Visits Authorized [id number] Closed Auto-Generate d Referral 08/07/2022 09/06/2023 1 1 Reason Comments Radiology US Specialty Diagnoses / Procedures Referred By Contac t Referred To Contact [facility] Diagnoses Lower abdominal pain Procedures US FEMALE PELVIS TRANSVAG US TRANSVAGINAL Diana Andres APRN.HEIDY [address] [place] [address] [place] [id number] Referral ID Status Reason Start Date Expiration Date V isits Requested Visits Authorized [id number] Closed Auto-Generate d Referral 07/09/2022 08/08/2023 1 [...] PRE&POST-BRNCDILAT ADMN Mona Corrigan MD [address] [place] [address] [facility] [place] [address] [place] [address] Referral ID Status Reason Start Date Expiration Date V isits Requested Visits Authorized [id number] Closed Auto-Generate d Referral 11/05/2023 12/04/2024 1 1 Specialty Diagnoses / Procedures Referred By Contac t Referred To Contact [facility] Diagnoses Asthma with COPD (HCC) Procedures NITRIC OXIDE, EXHALED NITRIC OXIDE GAS DETERMINATION Mona Corrigan MD [address] [place] [address] [facility] [address] [place] [address] Referral ID Status Reason Start Date Expiration Date V isits Requested Visits Authorized [id number] Closed Auto-Generate d Referral 11/05/2023 12/04/2024 1 1 Reason Comments Lung Cancer Reason Comments Follow Up med refills, c/o hem orrhoid seeing next and colonoscopydiscuss getting a new bipap machine last 2013 Reason Comments Orders office notes need addenum done Reason Comments Radiology CT Specialty Diagnoses / Procedures Referred By Contac t Referred To Contact CT IMAGING Diagnoses Tobacco use current Procedures CT LUNG SCREEN WO IVCON COMPUTED TOMOGRAPHY THORAX LW DOSE LNG CA SCR C- Lorimor, Justyna, CHIEF PROGRAM OFFICER.UNDER CUTTING MACHINE OPERATOR [address] [place] [address] [facility] [place] [address] Referral ID Status Reason Start Date Expiration Date V isits Requested Visits Authorized [id number] Closed Auto-Generate d Referral 11/11/2023 12/10/2024 1 1 Reason Comments Results Reason Comments Muscle biopsy Reason Comments Follow Up Results of multiple tests, discuss ongoing issues Reason Comments Results Reason Comments Orders Color Maker Dyer - Other Reason Comments Patient Question Reason [...] Dysuria Reason Comments ED Follow-up Hospital F/U [facility] follow up from - 03/24/24 Reason Comments [...] THORAX W/O Mona Zuniga MD [address] [place] [address] [place] [id number] Referral ID Status Reason Start Date Expiration Date V isits Requested Visits Authorized [id number] Closed Auto-Generate d Referral 06/22/2024 06/06/2025 1 1 Reason Onset Date Comments CDM 07/03/2024 Telephonic outre ach Reason Comments Neuropathy [...] MDM 60 MINUTES Willam Estrada MD [address] [place] [address] Referral ID Status Reason Start Date Expiration Date V isits Requested Visits Authorized [id number] Closed PCP Requested Referral 07/09/2024 07/09/2025 1 [...] Established Patient Pneumonia Reason Comments ER F/U [facility] 08/02/24-Pneumon ia & Hypotension Reason Comments Ambulatory Social Work Follow up for in home care/ Direction Home Reason Onset Date Comments Refill Request 09/11/2024 Reason Onset Date Comments Refill Request 09/14/2024 Reason Comments Insurance Authorization Specialty Diagnoses / Procedures Referred By Milka ulloa Referred To Contact CT IMAGING Diagnoses Tobacco use current Procedures CT LUNG SCREEN WO IVCON COMPUTED TOMOGRAPHY THORAX LW DOSE LNG CA SCR C- Justyna Mora, CHIEF PROGRAM OFFICER.UNDER CUTTING MACHINE OPERATOR [address] [place] [address] Phone: tel: fax: [facility] [place] [phone] Referral ID Status Reason Start Date Expiration Date V isits Requested Visits Authorized [id number] Closed Auto-Generate d Referral 11/25/2023 12/24/2024 1 1 Reason Comments Established Patient Neuropathy, tx kevin- c/o neuropathy worsening Specialty Diagnoses / Procedures Referred By Milka t Referred To Contact Neurology Diagnoses Type 2 diabetes mellitus with diabetic neuropathy, without long-term current use of insulin (HCC) Procedures CONSULT TO NEUROLOGY OFFICE/OUTPATIENT NEW HIGH MDM 60 MINUTES Willam Estrada MD [address] [place] [address] Phone: tel: fax: Referral ID Status Reason Start Date Expiration Date V isits Requested Visits Authorized [id number] Closed PCP Requested Referral 07/09/2024 07/09/2025 1 1 Reason Comments Established Patient COPD Reason Comments Follow Up question about [place] for albuterol inhaler, insurance no longer covers, [...] Patient Specialty Diagnoses / Procedures Referred By Contac t Referred To Contact Vascular Surgery Diagnoses Family history of abdominal aortic aneurysm (AAA) Ectasia of artery Procedures CONSULT TO VASCULAR SURGERY OFFICE/OUTPATIENT NEW HIGH MDM 60 MINUTES Leila Rubi PA-C [address] [place] [address] Phone: tel: fax: Referral ID Status Reason Start Date Expiration Date V isits Requested Visits Authorized [id number] Closed PCP Requested Referral 11/25/2024 11/25/2025 1 1 Reason Onset Date Comments Refill Request 03/07/2025 Reason Comments Sinus Problem Pressure and pain in head, headache, chest congestion, Shortness of Breath, wheeze, states she feels off, shaky, cold chills, dizziness tightness in chest x 5 days increasing Care Teams (unrecognized sec tion and content) In Flight Crew Member Relationship Specialty Start Date End Date Willam Estrada MD [address] [place], [place] [address]241 PCP - General 01/15/06 In Flight Crew Member Relationship Specialty Start Date End Date Willam Estrada MD [address] [place], [place] [id number] PCP - General 01/15/06 In Flight Crew Member Relationship Specialty Start Date End Date Willam Estrada MD [address] [place] [address] PCP - General 01/15/06 In Flight Crew Member Relationship Specialty Start Date End Date Willam Estrada MD [address] [place] [address] PCP - General 01/15/06 [place] [address] [place] [address] Past Due Accounts Clerk 12/18/21 In Flight Crew Member Relationship Specialty Start Date End Date Willam Estrada MD [address] [place] [address] PCP - General 01/15/06 Kimmy Mariscal, KELSEY [address] [place] [address] Past Due Accounts Clerk 12/18/21 In Flight Crew Member Relationship Specialty Start Date End Date Willam Estrada MD [address] [place] [address] PCP - General 01/15/06 [place] [address] [place] [address] Past Due Accounts Clerk 12/18/21 In Flight Crew Member Relationship Specialty Start Date End Date Willam Estrada MD [address] [place] [address] PCP - General 01/15/06 Kimmy Mariscal, KELSEY [address] [place] [address] Past Due Accounts Clerk 12/18/21 In Flight Crew Member Relationship Specialty Start Date End Date Willam Estrada MD [address] [place] [address] PCP - General 01/15/06 Leila Lawton, insurance claims clerkPast Due Accounts Clerk 02/07/22 In Flight Crew Member Relationship Specialty Start Date End Date Willam Estrada MD [address] [facility] [place] [address] PCP - General 01/15/06 [place] [address] [place] [address] Past Due Accounts Clerk 12/18/2102/06 Leila Lawton, insurance claims clerkPast Due Accounts Clerk 02/07/22 In Flight Crew Member Relationship Specialty Start Date End Date Willam Estrada MD [address] [place] [address] PCP - General 01/15/06 Leila Lawton, insurance claims clerkPast Due Accounts Clerk 02/07/22 In Flight Crew Member Relationship Specialty Start Date End Date Willam Estrada MD [address] [place] [address] PCP - General 01/15/06 In Flight Crew Member Relationship Specialty Start Date End Date Willam Estrada MD [address] [place] [address] PCP - General 01/15/06 Leila Lawton, insurance claims clerkPast Due Accounts Clerk 02/07/22 In Flight Crew Member Relationship Specialty Start Date End Date Willam Estrada MD [address] [place] [address] PCP - General 01/15/06 Kimmy Mariscal, KELSEY [address] [place] [address] Past Due Accounts Clerk 12/18/2102/06 In Flight Crew Member Relationship Specialty Start Date End Date Willam Estrada MD [address] [place] [address] PCP - General 01/15/06 Leila Lawton, insurance claims clerkPast Due Accounts Clerk 02/07/22 In Flight Crew Member Relationship Specialty Start Date End Date Willam Estrada MD [address] [place] [address] PCP - General 01/15/06 Leila Lawton, insurance claims clerkPast Due Accounts Clerk 02/07/22 In Flight Crew Member Relationship Specialty Start Date End Date Willam Estrada MD [address] [place] [address] PCP - General 01/15/06 Leila Lawton, insurance claims clerkPast Due Accounts Clerk 02/07/22 In Flight Crew Member Relationship Specialty Start Date End Date Willam Estrada MD [address] [place] [address] PCP - General 01/15/06 Leila Lawton, insurance claims clerkPast Due Accounts Clerk 02/07/22 In Flight Crew Member Relationship Specialty Start Date End Date Willam Estrada MD [address] [place] [address] PCP - General 01/15/06 Leila Lawton, insurance claims clerkPast Due Accounts Clerk 02/07/22 In Flight Crew Member Relationship Specialty Start Date End Date Willam Estrada MD [address] [place] [address] PCP - General 01/15/06 Leila Lawton, insurance claims clerkPast Due Accounts Clerk 02/07/22 In Flight Crew Member Relationship Specialty Start Date End Date Willam Estrada MD [address] [place] [address] PCP - General 01/15/06 Leila Lawton, insurance claims clerkPast Due Accounts Clerk 02/07/22 In Flight Crew Member Relationship Specialty Start Date End Date Willam Estrada MD [address] [place] [address] PCP - General 01/15/06 Leila Lawton, insurance claims clerkPast Due Accounts Clerk 02/07/22 In Flight Crew Member Relationship Specialty Start Date End Date Willam Estrada MD [address] [place] [address] PCP - General 01/15/06 Leila Lawton, insurance claims clerkPast Due Accounts Clerk 02/07/22 In Flight Crew Member Relationship Specialty Start Date End Date Willam Estrada MD [address] [place] [address] PCP - General 01/15/06 Leila Lawton, insurance claims clerkPast Due Accounts Clerk 02/07/22 In Flight Crew Member Relationship Specialty Start Date End Date Willam Estrada MD [address] [place] [address] PCP - General 01/15/06 Leila Lawton, insurance claims clerkPast Due Accounts Clerk 02/07/22 In Flight Crew Member Relationship Specialty Start Date End Date Willam Estrada MD [address] [place] [address] PCP - General 01/15/06 Rola Browne RN [address] [place] [address] Past Due Accounts Clerk 02/07/22 In Flight Crew Member Relationship Specialty Start Date End Date Willam Estrada MD [address] [place] [address] PCP - General 01/15/06 Rola Browne RN [address] [place] [address] Past Due Accounts Clerk 02/07/22 In Flight Crew Member Relationship Specialty Start Date End Date Willam Estrada MD [address] [place] [address] PCP - General 01/15/06 Rola Browne, RN [address] [place] [address] Past Due Accounts Clerk 02/07/22 In Flight Crew Member Relationship Specialty Start Date End Date Willam Estrada MD [address] [place] [address] PCP - General 01/15/06 Rola Browne, RN [address] [place] [address] Past Due Accounts Clerk 02/07/22 In Flight Crew Member Relationship Specialty Start Date End Date Willam Estrada MD [address] [place] [address] PCP - General 01/15/06 Rola Browne, RN [address] [place] [address] Past Due Accounts Clerk 07/08/22 In Flight Crew Member Relationship Specialty Start Date End Date Willam Estrada MD [address] [place] [address] PCP - General 01/15/06 Rola Browne, RN [address] [place] [address] Past Due Accounts Clerk 07/08/22 In Flight Crew Member Relationship Specialty Start Date End Date Willam Estrada MD [address] [place] [address] PCP - General 01/15/06 Rola Browne, RN [address] [place] [address] Past Due Accounts Clerk 07/08/22 In Flight Crew Member Relationship Specialty Start Date End Date Willam Estrada MD [address] [place] [address] PCP - General 01/15/06 Rola Browne, RN [address] [place] [address] Past Due Accounts Clerk 07/08/22 In Flight Crew Member Relationship Specialty Start Date End Date Willam Estrada MD [address] [place] [address] PCP - General 01/15/06 Rola Browne RN [address] [place] [address] Past Due Accounts Clerk 07/08/22 In Flight Crew Member Relationship Specialty Start Date End Date Willam Estrada MD [address] [place] [address] PCP - General 01/15/06 Rola Browne, RN [address] [place] [address] Past Due Accounts Clerk 07/08/22 In Flight Crew Member Relationship Specialty Start Date End Date Willam Estrada MD [address] [place] [address] PCP - General 01/15/06 Rola Browne, RN [address] [place] [address] Past Due Accounts Clerk 07/08/22 In Flight Crew Member Relationship Specialty Start Date End Date Willam Estrada MD [address] [place] [address] PCP - General 01/15/06 Rola Browne, RN [address] [place] [address] Past Due Accounts Clerk 07/08/22 Team Status: Active Member Role Status [...] Dr. Mona Corrigan MD Attending Provider Active In Flight Crew Member Relationship Specialty Start Date End Date Willam Estrada MD [address] [place] [address] PCP - General 01/15/06 Rola Browne, RN [address] [place] [address] Past Due Accounts Clerk 07/08/22 In Flight Crew Member Relationship Specialty Start Date End Date Willam Estrada MD [address] [place] [address] PCP - General 01/15/06 Rola Browne, RN [address] [place] [address] Past Due Accounts Clerk 07/08/22 In Flight Crew Member Relationship Specialty Start Date End Date Willam Estrada MD [address] [place] [address] PCP - General 01/15/06 Rola Browne, RN [address] [place] [address] Past Due Accounts Clerk 07/08/22 In Flight Crew Member Relationship Specialty Start Date End Date Willam Estrada MD [address] [place] [address] PCP - General 01/15/06 Rola Browne, RN [address] [place] [address] Past Due Accounts Clerk 07/08/22 Team Status: Inactive Member Role Status Dates Dr. Willam Estrada MD Primary Care Provider Active Booker Barrett MD Emergency Provider Active In Flight Crew Member Relationship Specialty Start Date End Date Willam Estrada MD [address] [place] [address] PCP - General 01/15/06 Rola Browne, RN [address] [place] [address] Past Due Accounts Clerk 07/08/22 In Flight Crew Member Relationship Specialty Start Date End Date Willam Estrada MD [address] [place] [address] PCP - General 01/15/06 Rola Browne, RN [address] [place], [place] [id number] Past Due Accounts Clerk 07/08/22 Team Status: Inactive Member Role Status Dates Dr. Willam Estrada MD Primary Care Provider, Referr ing Provider Active Carrie Sheikh COUTURIERE, COUTURIERE-C Attending Provider Active Team Status: Inactive Member Role Status Dates Dr. Willam Estrada MD Primary Care Provider Active Booker Barrett MD Attending Provider, Emergency Provid er Active Team Status: Inactive Member Role Status Dates Dr. Willam Estrada MD Primary Care Provider Active Carrie Sheikh COUTURIERE, COUTURIERE-C Attending Provider Active Team Status: Active Member Role Status Dates Dr. Willam Estrada MD Primary Care Provider Active Carrie Sheikh COUTURIERE, COUTURIERE-C Attending Provider Active In Flight Crew Member Relationship Specialty Start Date End Date Willam Estrada MD [address] [place] [address] PCP - General 01/15/06 Rola Browne, RN [address] [place] [address] Past Due Accounts Clerk 07/08/22 Team Status: Inactive Member Role Status Dates Dr. Willam Estrada MD Primary Care Provider Active Carrie Sheikh COUTURIERE, COUTURIERE-C Attending Provider, Referrin g Provider Active Team Status: Inactive Member Role Status Dates Dr. Willam Estrada MD Primary Care Provider, Referr ing Provider Active Dr. Uriel Caceres DO Attending Provider Active Team Status: Inactive Member Role Status Dates Dr. Willam Estrada MD Primary Care Provider Active Dr. Uriel Caceres DO Attending Provider, Referring Provider Active In Flight Crew Member Relationship Specialty Start Date End Date Willam Estrada MD [address] [place] [address] PCP - General 01/15/06 Rola Browne, RN [address] [place] [address] Past Due Accounts Clerk 07/08/22 In Flight Crew Member Relationship Specialty Start Date End Date Willam Estrada MD [address] [place] [address] PCP - General 01/15/06 Rola Browne, RN [address] [place] [address] Past Due Accounts Clerk 07/08/22 In Flight Crew Member Relationship Specialty Start Date End Date Willam Estrada MD [address] [place] [address] PCP - General 01/15/06 Rola Browne RN [address] [place] [address] Past Due Accounts Clerk 07/08/22 In Flight Crew Member Relationship Specialty Start Date End Date Willam Estrada MD [address] [place] [address] PCP - General 01/15/06 Rola Browne RN [address] [place] [address] Past Due Accounts Clerk 07/08/22 Team Status: Inactive Member Role Status Dates Dr. Willam Estrada MD Primary Care Provider Active Dr. Diogo Garza DO Emergency Provider Active In Flight Crew Member Relationship Specialty Start Date End Date Willam Estrada MD [address] [place] [address] PCP - General 01/15/06 Rola Browne RN [address] [place] [address] Past Due Accounts Clerk 07/08/22 In Flight Crew Member Relationship Specialty Start Date End Date Willam Estrada MD [address] [place] [address] PCP - General 01/15/06 Rola Browne RN [address] [place] [address] Past Due Accounts Clerk 07/08/22 In Flight Crew Member Relationship Specialty Start Date End Date Willam Estrada MD [address] [place] [address] PCP - General 01/15/06 Rola Browne RN [address] [place], [place] [address] Past Due Accounts Clerk 07/08/22 Team Status: Inactive Member Role Status Dates Dr. Willam Estrada MD Primary Care Provider Active Dr. Rosendo Morocho , Attending Provider, Emergency P rovider Active Team Status: Inactive Member Role Status Dates Dr. Willam Estrada MD Primary Care Provider Active Alpa Morales Attending Provider, Referring Provide r Active Team Status: Inactive Member Role Status Dates Dr. Willam Estrada MD Primary Care Provider Active Dr. Diogo Garza DO Attending Provider, Emergency Pr ovider Active Team Status: Active Member Role Status Dates Dr. Willam Estrada MD Primary Care Provider Active Dr. Uriel Caceres , Attending Provider, Referring Provider Active Team Status: Inactive Member Role Status Dates Dr. Willam Estrada MD Primary Care Provider Active Dr. Corey Rubi MD Emergency Provider Active In Flight Crew Member Relationship Specialty Start Date End Date Willam Estrada MD [address] [place] [address] PCP - General 01/15/06 Rola Browne RN [address] [facility], [place] [address] Past Due Accounts Clerk 07/08/22 Team Status: Active Member Role Status Dates Dr. Willam Estrada MD Primary Care Provider, Referr ing Provider Active Dr. Trevino Friend , DO Attending Provider, Other Prov ider Active In Flight Crew Member Relationship Specialty Start Date End Date Willam Estrada MD [address] [facility] [place] [address] PCP - General 01/15/06 Rola Browne, RN [address] [place] [address] Past Due Accounts Clerk 07/08/22 In Flight Crew Member Relationship Specialty Start Date End Date Willam Estrada MD [address] [place] [address] PCP - General 01/15/06 Rola Browne, RN [address] [place] [address] Past Due Accounts Clerk 07/08/22 In Flight Crew Member Relationship Specialty Start Date End Date Willam Estrada MD [address] [place] [address] PCP - General 01/15/06 Rola Browne, RN [address] [place] [address] Past Due Accounts Clerk 07/08/22 In Flight Crew Member Relationship Specialty Start Date End Date Willam Estrada MD [address] [place] [address] PCP - General 01/15/06 Rola Browne, RN [address] [place] [address] Past Due Accounts Clerk 07/08/22 In Flight Crew Member Relationship Specialty Start Date End Date Willam Estrada MD [address] [place] [address] PCP - General 01/15/06 Rola Browne, RN [address] [place], [place] [address] Past Due Accounts Clerk 07/08/22 Team Status: Inactive Member Role Status Dates Dr. Willam Estrada MD Primary Care Provider Active Dr. Jono Castro MD Emergency Provider Active Team Status: Inactive Member Role Status Dates Dr. Willam Estrada MD Primary Care Provider Active Dr. Corey Rubi MD Attending Provider, Emergency Provider Active In Flight Crew Member Relationship Specialty Start Date End Date Willam Estrada MD [address] [facility] [place] [address] PCP - General 01/15/06 Rola Browne RN [address] [facility] [place] [address] Past Due Accounts Clerk 07/08/22 In Flight Crew Member Relationship Specialty Start Date End Date Willam Estrada MD [address] [facility] [place] [address] PCP - General 01/15/06 Rola Browne RN [address] [facility] [place] [address] Past Due Accounts Clerk 07/08/22 Mona Corrigan MD [address] [place] [address] Pulmonary and Critical Care Medicine 11/11/23 In Flight Crew Member Relationship Specialty Start Date End Date Willam Estrada MD [address] [facility] [place] [address] PCP - General 01/15/06 Rola Browne RN [address] [facility] [place] [address] Past Due Accounts Clerk 07/08/22 Mona Corrigan MD [address] [facility] [place] [address] Pulmonary and Critical Care Medicine 11/11/23 In Flight Crew Member Relationship Specialty Start Date End Date Willam Estrada MD [address] [facility] [place] [address] PCP - General 01/15/06 Rola Browne, RN [address] [facility] [place] [address] Past Due Accounts Clerk 07/08/22 Mona Corrigan MD [address] [address] Pulmonary and Critical Care Medicine 11/11/23 In Flight Crew Member Relationship Specialty Start Date End Date Willam Estrada MD [address] [place] [address] PCP - General 01/15/06 Rola Browne RN [address] [facility] [place] [address] Past Due Accounts Clerk 07/08/22 Mona Corrigan MD [address] [place] [address] Pulmonary and Critical Care Medicine 11/11/23 In Flight Crew Member Relationship Specialty Start Date End Date Willam Estrada MD [address] [place] [address] PCP - General 01/15/06 Rola Browne RN [address] [facility] [place] [address] Past Due Accounts Clerk 07/08/22 Mona Corrigan MD [address] [address] Pulmonary and Critical Care Medicine 11/11/23 In Flight Crew Member Relationship Specialty Start Date End Date Willam Estrada MD [address] [facility] [place] [address] PCP - General 01/15/06 Rola Browne RN [address] [place] [address] Past Due Accounts Clerk 07/08/22 Mona Corrigan MD [address] [place] [address] Pulmonary and Critical Care Medicine 11/11/23 Shaq Rush MD [address] [place] [address] Cardiology 11/25/23 In Flight Crew Member Relationship Specialty Start Date End Date Willam Estrada MD [address] [place] [address] PCP - General 01/15/06 Rola Browne RN [address] [place] [address] Past Due Accounts Clerk 07/08/22 Moan Corrigan MD [address] [place] [address] Pulmonary and Critical Care Medicine 11/11/23 Shaq Rush MD [address] [place] [address] Cardiology 11/25/23 In Flight Crew Member Relationship Specialty Start Date End Date Willam Estrada MD [address] [place] [address] PCP - General 01/15/06 Rola Browne RN [address] [place] [address] Past Due Accounts Clerk 07/08/22 Mona Corrigan MD [address] [place] [address] Pulmonary and Critical Care Medicine 11/11/23 Shaq Rush MD [address] [facility] [address] [place] [address] Cardiology 11/25/23 In Flight Crew Member Relationship Specialty Start Date End Date Willam Estrada MD [address] [place] [address] PCP - General 01/15/06 Rola Browne RN [address] [place] [address] Past Due Accounts Clerk 07/08/22 Mona Corrigan MD [address] [place] [address] Pulmonary and Critical Care Medicine 11/11/23 Shaq Rush MD [address] [facility] [address] [place] [address] Cardiology 11/25/23 In Flight Crew Member Relationship Specialty Start Date End Date Willam Estrada MD [address] [place] [address] PCP - General 01/15/06 Rola Browne RN [address] [place] [address] Past Due Accounts Clerk 07/08/22 Mona Corrigan MD [address] [place] [address] Pulmonary and Critical Care Medicine 11/11/23 Shaq Rush MD [address] [place] [address] Cardiology 11/25/23 In Flight Crew Member Relationship Specialty Start Date End Date Willam Estrada MD [address] [place] [address] PCP - General 01/15/06 Rola Browne RN [address] [place] [address] Past Due Accounts Clerk 07/08/22 Mona Corrigan MD [address] [place] [address] Pulmonary and Critical Care Medicine 11/11/23 Shaq Rush MD [address] [place] [address] Cardiology 11/25/23 In Flight Crew Member Relationship Specialty Start Date End Date Willam Estrada MD [address] [place] [address] PCP - General 01/15/06 Rola Browne RN [address] [place] [address] Past Due Accounts Clerk 07/08/22 Mona Corrigan MD [address] [place] [address] Pulmonary and Critical Care Medicine 11/11/23 Shaq Rush MD [address] [place] [address] Cardiology 11/25/23 In Flight Crew Member Relationship Specialty Start Date End Date Willam Estrada MD [address] [place] [address] PCP - General 01/15/06 Rola Browne RN [address] [place] [address] Past Due Accounts Clerk 07/08/22 Mona Corrigan MD [address] [place] [address] Pulmonary and Critical Care Medicine 11/11/23 Shaq Rush MD [address] [place] [address] Cardiology 11/25/23 In Flight Crew Member Relationship Specialty Start Date End Date Willam Estrada MD [address] [place] [address] PCP - General 01/15/06 Rola Browne RN [address] [place] [address] Past Due Accounts Clerk 07/08/22 Mona Corrigan MD [address] [place] [address] Pulmonary and Critical Care Medicine 11/11/23 Shaq Rush MD [address] [place] [address] Cardiology 11/25/23 In Flight Crew Member Relationship Specialty Start Date End Date Willam Estrada MD [address] [place] [address] PCP - General 01/15/06 Rola Browne RN [address] [place] [address] Past Due Accounts Clerk 07/08/22 Mona Corrigan MD [address] [place] [facility] [place] [address] Pulmonary and Critical Care Medicine 11/11/23 Shaq Rush MD [address] [place] [address] Cardiology 11/25/23 In Flight Crew Member Relationship Specialty Start Date End Date Willam Estrada MD [address] [place] [address] PCP - General 01/15/06 Rola Browne RN [address] [place] [address] Past Due Accounts Clerk 07/08/22 Mona Corrigan MD [address] [place] [address] Pulmonary and Critical Care Medicine 11/11/23 Shaq Rush MD [address] [place] [address] Cardiology 11/25/23 Alyssa Hathaway, KELSEY [address] [facility] [place] [address] Primary Care Press Catcher 03/25/24 In Flight Crew Member Relationship Specialty Start Date End Date Willam Estrada MD [address] [place] [address] PCP - General 01/15/06 Rola Browne RN [address] [place] [address] Past Due Accounts Clerk 07/08/22 Mona Corrigan MD [address] [facility] [place] [address] Pulmonary and Critical Care Medicine 11/11/23 Shaq Rush MD [address] [facility] [address] [place] [address] Cardiology 11/25/23 Alyssa Hathaway, KELSEY [address] [place] [address] Primary Care Press Catcher 03/25/24 In Flight Crew Member Relationship Specialty Start Date End Date Willam Estrada MD [address] [place] [address] PCP - General 01/15/06 Rola Browne RN [address] [place] [address] Past Due Accounts Clerk 07/08/22 Mona Corrigan MD [address] [place] [address] Pulmonary and Critical Care Medicine 11/11/23 Shaq Rush MD [address] [facility] [address] [address] Cardiology 11/25/23 Alyssa Hathaway RN [address] [place] [address] Primary Care Press Catcher 03/25/24 In Flight Crew Member Relationship Specialty Start Date End Date Willam Estrada MD [address] [place] [address] PCP - General 01/15/06 Rola Browne RN [address] [place] [address] Past Due Accounts Clerk 07/08/22 Mona Corrigan MD [address] [place] [address] Pulmonary and Critical Care Medicine 11/11/23 Shaq Rush MD [address] [place] [address] Cardiology 11/25/23 Alyssa Hathaway RN [address] [place] [address] Primary Care Press Catcher 03/25/24 In Flight Crew Member Relationship Specialty Start Date End Date Willam Estrada MD [address] [place] [address] PCP - General 01/15/06 Rola Browne RN 6[address] [place] [address] Past Due Accounts Clerk 07/08/22 Mona Corrigan MD [address] [place] [address] Pulmonary and Critical Care Medicine 11/11/23 Shaq Rush MD [address] [place] [address] Cardiology 11/25/23 Alyssa Hathaway RN [address] [place] [address] Primary Care Press Catcher 03/25/24 In Flight Crew Member Relationship Specialty Start Date End Date Willam Estrada MD [address] [place] [address] PCP - General 01/15/06 Rola Browne RN [address] [place] [address] Past Due Accounts Clerk 07/08/22 Mona Corrigan MD [address] [place] [address] Pulmonary and Critical Care Medicine 11/11/23 Shaq Rush MD [address] [place] [address] Cardiology 11/25/23 Alyssa Hathaway, KELSEY [address] [place] [address] Primary Care Press Catcher 03/25/24 In Flight Crew Member Relationship Specialty Start Date End Date Willam Estrada MD [address] [place] [address] PCP - General 01/15/06 Rola Browne RN [address] [place] [address] Past Due Accounts Clerk 07/08/22 Mona Corrigan MD [address] [place] [address] Pulmonary and Critical Care Medicine 11/11/23 Shaq Rush MD [address] [place] [address] Cardiology 11/25/23 Alyssa Hathaway RN [address] [place] [address] Primary Care Press Catcher 03/25/24 In Flight Crew Member Relationship Specialty Start Date End Date Willam Estrada MD [address] [place] [address] PCP - General 01/15/06 Rola Browne, KELSEY [address] [place] [address] Past Due Accounts Clerk 07/08/22 Mona Corrigan MD [address] [place] [address] Pulmonary and Critical Care Medicine 11/11/23 Shaq Rush MD [address] [place] [address] Cardiology 11/25/23 Alyssa Hathaway RN [address] [place] [address] Primary Care Press Catcher 03/25/24 In Flight Crew Member Relationship Specialty Start Date End Date Willam Estrada MD [address] [place] [address] PCP - General 01/15/06 Rola Browne RN [address] [place] [address] Past Due Accounts Clerk 07/08/22 Mona Corrigan MD [address] [place] [address] Pulmonary and Critical Care Medicine 11/11/23 Shaq Rush MD [address] [facility] [address] [place] [address] Cardiology 11/25/23 In Flight Crew Member Relationship Specialty Start Date End Date Willam Estrada MD [address] [place] [address] PCP - General 01/15/06 Mona Corrigan MD [address] E [facility] [place] [address] Pulmonary and Critical Care Medicine 11/11/23 Shaq Rush MD [address] [place] [address] Cardiology 11/25/23 Oxana Pack, insurance claims clerkPast Due Accounts Clerk 05/08/24 In Flight Crew Member Relationship Specialty Start Date End Date Willam Estrada MD [address] [place] [address] PCP - General 01/15/06 Rola Browne RN [address] [place] [address] Past Due Accounts Clerk 07/08/22 05/07/24 Mona Corrigan MD [address] [place] [address] Pulmonary and Critical Care Medicine 11/11/23 Shaq Rush MD [address] [place] [address] Cardiology 11/25/23 Alyssa Hathaway RN [address] [place] [address] Primary Care Press Catcher 03/25/24 04/23/24 In Flight Crew Member Relationship Specialty Start Date End Date Willam Estrada MD [address] [place] [address] PCP - General 01/15/06 Rola Browne RN [address] [place], [place] [address]31 Past Due Accounts Clerk 07/08/22 05/07/24 Mona Corrigan MD [address] [place] [address] Pulmonary and Critical Care Medicine 11/11/23 Shaq Rush MD [address] [place] [address] Cardiology 11/25/23 In Flight Crew Member Relationship Specialty Start Date End Date Willam Estrada MD [address] [place] [address] PCP - General 01/15/06 Rola Browne RN [address] [facility], [place] [address]4831 Past Due Accounts Clerk 07/08/22 05/07/24 Mona Corrigan MD [address] [place] [address] Pulmonary and Critical Care Medicine 11/11/23 Shaq Rush MD [address] [facility] [address] [place] [address] Cardiology 11/25/23 In Flight Crew Member Relationship Specialty Start Date End Date Willam Estrada MD [address] [place] [address] PCP - General 01/15/06 Rola Browne RN [address] [place] [address] Past Due Accounts Clerk 07/08/22 05/07/24 Mona Corrigan MD [address] [place] [address] Pulmonary and Critical Care Medicine 11/11/23 Shaq Rush MD [address] [place] [address] Cardiology 11/25/23 Alyssa Hathaway, KELSEY [address] [place] [address] Primary Care Press Catcher 03/25/24 04/23/24 In Flight Crew Member Relationship Specialty Start Date End Date Willam Estrada MD [address] [place] [address] PCP - General 01/15/06 Mona Corrigan MD [address] [place] [address] Pulmonary and Critical Care Medicine 11/11/23 Shaq Rush MD [address] [place] [address] Cardiology 11/25/23 Oxana Pack RN Past Due Accounts Clerk 05/08/24 In Flight Crew Member Relationship Specialty Start Date End Date Willam Estrada MD [address] [place] [address] PCP - General 01/15/06 Mona Corrigan MD [address] [place] [address] Pulmonary and Critical Care Medicine 11/11/23 Shaq Rush MD [address] [place] [address] Cardiology 11/25/23 Oxana Pack RN Past Due Accounts Clerk 05/08/24 In Flight Crew Member Relationship Specialty Start Date End Date Willam Estrada MD [address] [place] [address] PCP - General 01/15/06 Rola Browne, RN 6[address] [place] [address] Past Due Accounts Clerk 07/08/2204/10 In Flight Crew Member Relationship Specialty Start Date End Date Willam Estrada MD [address] [place] [address] PCP - General 01/15/06 Rola Browne, RN [address] [place] [address] Past Due Accounts Clerk 07/08/2204/10 In Flight Crew Member Relationship Specialty Start Date End Date Willam Estrada MD [address] [place] [address] PCP - General 01/15/06 Rola Browne RN [address] [place] [address] Past Due Accounts Clerk 07/08/2204/10 In Flight Crew Member Relationship Specialty Start Date End Date Willam Estrada MD [address] [place] [address] PCP - General 01/15/06 Leila Lawton, insurance claims clerkPast Due Accounts Clerk 02/07/22 In Flight Crew Member Relationship Specialty Start Date End Date Willam Estrada MD [address] [place] [address] PCP - General 01/15/06 Mona Corrigan MD [address] [facility] [place] [address] Pulmonary and Critical Care Medicine 11/11/23 Shaq Rush MD [address] [place] [address] Cardiology 11/25/23 Oxana [employer], insurance claims clerkPast Due Accounts Clerk 05/08/24 In Flight Crew Member Relationship Specialty Start Date End Date Willam Estrada MD [address] [place] [address] PCP - General 01/15/06 Leila Lawton RN Past Due Accounts Clerk 02/07/22 In Flight Crew Member Relationship Specialty Start Date End Date Willam Estrada MD [address] [place] [address] PCP - General 01/15/06 In Flight Crew Member Relationship Specialty Start Date End Date Willam Estrada MD [address] [place] [address] PCP - General 01/15/06 In Flight Crew Member Relationship Specialty Start Date End Date Willam Estrada MD [address] [place] [address] PCP - General 01/15/06 Mona Corrigan MD [address] [facility] [address] Pulmonary and Critical Care Medicine 11/11/23 Shaq Rush MD [address] [place] [address] Cardiology 11/25/23 Ox[employer], insurance claims clerkPast Due Accounts Clerk 05/08/24 In Flight Crew Member Relationship Specialty Start Date End Date Willam Estrada MD [address] [place] [address] PCP - General 01/15/06 In Flight Crew Member Relationship Specialty Start Date End Date Willam Estrada MD [address] [place] [address] PCP - General 01/15/06 Mona Corrigan MD [address] [place] [address] Pulmonary and Critical Care Medicine 11/11/23 Shaq Rush MD [address] [place] [address] Cardiology 11/25/23 Oxana Pack RN Past Due Accounts Clerk 05/08/24 In Flight Crew Member Relationship Specialty Start Date End Date Willam Estrada MD [address] [place] [address] PCP - General 01/15/06 Mona Corrigan MD [address] [place] [address] Pulmonary and Critical Care Medicine 11/11/23 Shaq Rush MD [address] [place] [address] Cardiology 11/25/23 Oxana [employer], insurance claims clerkPast Due Accounts Clerk 05/08/24 In Flight Crew Member Relationship Specialty Start Date End Date Willam Estrada MD [address] [place] [address] PCP - General 01/15/06 Mona Corrigan MD [address] [place] [address] Pulmonary and Critical Care Medicine 11/11/23 Shaq Rush MD [address] [place] [address] Cardiology 11/25/23 Oxana [employer], insurance claims clerkPast Due Accounts Clerk 05/08/24 In Flight Crew Member Relationship Specialty Start Date End Date Willam Estrada MD [address] [facility] [place] [address] PCP - General 01/15/06 Mona Corrigan MD [address] [place] [address] Pulmonary and Critical Care Medicine 11/11/23 Shaq Rush MD [address] [place] [address] Cardiology 11/25/23 Oxana [employer], insurance claims clerkPast Due Accounts Clerk 05/08/24 In Flight Crew Member Relationship Specialty Start Date End Date Willam Estrada MD [address] [facility] [place] [address] PCP - General 01/15/06 Mona Corrigan MD [address] [place] [address] Pulmonary and Critical Care Medicine 11/11/23 Shaq Rush MD [address] [place] [address] Cardiology 11/25/23 Oxana [employer], insurance claims clerkPast Due Accounts Clerk 05/08/24 Kati Grant LSW EUCLID Boarding House Manager 07/22/24 In Flight Crew Member Relationship Specialty Start Date End Date Willam Estrada MD [address] [place] [address] PCP - General 01/15/06 Mona Corrigan MD [address] [place] [address] Pulmonary and Critical Care Medicine 11/11/23 Shaq Rush MD [address] [place] [address] Cardiology 11/25/23 Oxana Pack RN Past Due Accounts Clerk 05/08/24 Kati Grant LSW EUCLID Boarding House Manager 07/22/24 In Flight Crew Member Relationship Specialty Start Date End Date Willam Estrada MD [address] [place] [address] PCP - General 01/15/06 Mona Corrigan MD [address] [place] [address] Pulmonary and Critical Care Medicine 11/11/23 Shaq Rush MD [address] [facility] [address] [place] [address] Cardiology 11/25/23 Oxana Pack, insurance claims clerkPast Due Accounts Clerk 05/08/24 Kati Grant LSW EUCLID Boarding House Manager 07/22/24 In Flight Crew Member Relationship Specialty Start Date End Date Willam Estrada MD [address] [facility] [place] [address] PCP - General 01/15/06 Mona Corrigan MD [address] [place] [address] Pulmonary and Critical Care Medicine 11/11/23 Shaq Rush MD [address] [place] [address] Cardiology 11/25/23 Oxnaa Pack, insurance claims clerkPast Due Accounts Clerk 05/08/24 Kati Grant, BOLIVAR GARZA Boarding House Manager 07/22/24 In Flight Crew Member Relationship Specialty Start Date End Date Willam Estrada MD [address] [place] [address] PCP - General 01/15/06 Mona Corrigan MD [address] [place] [address] Pulmonary and Critical Care Medicine 11/11/23 Shaq Rush MD [address] [facility] [address] [place] [address] Cardiology 11/25/23 Oxana Pack, insurance claims clerkPast Due Accounts Clerk 05/08/24 Kati Grant, BOLIVAR GARZA Boarding House Manager 07/22/24 In Flight Crew Member Relationship Specialty Start Date End Date Willam Estrada MD [address] [place] [address] PCP - General 01/15/06 Mona Corrigan MD [address] [facility] [address] Pulmonary and Critical Care Medicine 11/11/23 Shaq Rush MD [address] [place] [address] Cardiology 11/25/23 Oxana Pack, insurance claims clerkPast Due Accounts Clerk 05/08/24 Kati Grant, BOLIVAR GARZA Boarding House Manager 07/22/24 In Flight Crew Member Relationship Specialty Start Date End Date Willam Estrada MD [address] [place] [address] PCP - General 01/15/06 Mona Corrigan MD [address] [place] [address] Pulmonary and Critical Care Medicine 11/11/23 Shaq Rush MD [address] [place] [address] Cardiology 11/25/23 Oxana Pack RN Past Due Accounts Clerk 05/08/24 Kati Grant LSW EUCANDREE Boarding House Manager 07/22/24 Alyssa Hathaway, KELSEY [address] [place] [address] Primary Care Press Catcher 08/07/24 In Flight Crew Member Relationship Specialty Start Date End Date Willam Estrada MD [address] [place] [address] PCP - General 01/15/06 Mona Corrigan MD [address] E [facility] [place] [address] Pulmonary and Critical Care Medicine 11/11/23 Shaq Rush MD [address] [address] Cardiology 11/25/23 Oxana Pack, insurance claims clerkPast Due Accounts Clerk 05/08/24 Kati Grant LSW EUCLID Boarding House Manager 07/22/24 Alyssa Hathaway, KELSEY [address] [place] [address] Primary Care Press Catcher 08/07/24 In Flight Crew Member Relationship Specialty Start Date End Date Willam Estrada MD [address] [place] [address] PCP - General 01/15/06 Mona Corrigan MD [address] [place] [address] Pulmonary and Critical Care Medicine 11/11/23 Shaq Rush MD [address] [address] Cardiology 11/25/23 Oxana Pack RN Past Due Accounts Clerk 05/08/24 Kati Grant LSW EUCLID Boarding House Manager 07/22/24 Alyssa Hathaway, KELSEY [address] [place] [address] Primary Care Press Catcher 08/07/24 In Flight Crew Member Relationship Specialty Start Date End Date Willam Estrada MD [address] [place] [address] PCP - General 01/15/06 Mona Corrigan MD [address] [facility] [place] [address] Pulmonary and Critical Care Medicine 11/11/23 Shaq Rush MD [address] [address] Cardiology 11/25/23 Oxana Pack, insurance claims clerkPast Due Accounts Clerk 05/08/24 Kati Grant LSW EUCLID Boarding House Manager 07/22/24 Alyssa Hathaway, KELSEY [address] [place] [address] Primary Care Press Catcher 08/07/24 In Flight Crew Member Relationship Specialty Start Date End Date Willam Estrada MD [address] [place] [address] PCP - General 01/15/06 Mona Corrigan MD [address] [facility] [place] [address] Pulmonary and Critical Care Medicine 11/11/23 Shaq Rush MD [address] [place] [address] Cardiology 11/25/23 Oxana Pack RN Past Due Accounts Clerk 05/08/24 Kati Grant LSW EUCLID Boarding House Manager 07/22/24 Alyssa Hathaway, KELSEY [address] [place] [address] Primary Care Press Catcher 08/07/24 In Flight Crew Member Relationship Specialty Start Date End Date Willam Estrada MD [address] [place] [address] PCP - General 01/15/06 Mona Corrigan MD [address] [place] [address] Pulmonary and Critical Care Medicine 11/11/23 Shaq Rush MD [address] [address] Cardiology 11/25/23 Oxana Pack, insurance claims clerkPast Due Accounts Clerk 05/08/24 Kati Grant, BOLIVAR GARZA Boarding House Manager 07/22/24 Alyssa Hathaway, KELSEY [address] [place] [address] Primary Care Press Catcher 08/07/24 In Flight Crew Member Relationship Specialty Start Date End Date Willam Estrada MD [address] [place] [address] PCP - General 01/15/06 Mona Corrigan MD [address] [place] [address] Pulmonary and Critical Care Medicine 11/11/23 Shaq Rush MD [address] [address] Cardiology 11/25/23 Oxana Pack, insurance claims clerkPast Due Accounts Clerk 05/08/24 Kati Grant LSW EUCLID Boarding House Manager 07/22/24 Alyssa Hathaway, KELSEY [address] [place] [address] Primary Care Press Catcher 08/07/24 In Flight Crew Member Relationship Specialty Start Date End Date Willam Estrada MD [address] [place] [address] PCP - General 01/15/06 Mona Corrigan MD [address] [place] [address] Pulmonary and Critical Care Medicine 11/11/23 Shaq Rush MD [address] [address] Cardiology 11/25/23 Oxana Pack, insurance claims clerkPast Due Accounts Clerk 05/08/24 Kati Grant LSW EUCLID Boarding House Manager 07/22/24 Alyssa Hathaway, KELSEY [address] [place], [place] [address] Primary Care Press Catcher 08/07/24 Leilani Ramirez APRN.JEWELRY MODEL MAKER [address] [place] [address] Plate Inspector Internal Medicine 08/17/24 Allerga Berumen CHIEF PROGRAM OFFICER.UNDER CUTTING MACHINE OPERATOR [address] [place] [address] Plate Inspector Internal Medicine 08/17/24 In Flight Crew Member Relationship Specialty Start Date End Date Willam Estrada MD [address] [place], [place] [address] PCP - General 01/15/06 Mona Corrigan MD [address]21 [place] [address] Pulmonary and Critical Care Medicine 11/11/23 Shaq Rush MD [address] [address] Cardiology 11/25/23 Oxana Pack, insurance claims clerkPast Due Accounts Clerk 05/08/24 Alyssa Hathaway, KELSEY [address] [place] [address] Primary Care Press Catcher 08/07/24 Leilani Ramirez APRN.JEWELRY MODEL MAKER [address] [place] [address] [facility] Internal Medicine 08/17/24 Allegra Berumen APRN.UNDER CUTTING MACHINE OPERATOR [address] [place] [address] [facility] Internal Medicine 08/17/24 In Flight Crew Member Relationship Specialty Start Date End Date Willam Estrada MD [address] [place] [address] PCP - General 01/15/06 Mona Corrigan MD [address] [place] [address] Pulmonary and Critical Care Medicine 11/11/23 [place] [address] [place] [address] Cardiology 11/25/23 Leilani Ramirez APRN.JEWELRY MODEL MAKER [address] [place] [address] [facility] Internal Medicine 08/17/24 Allegra Berumen APRN.UNDER CUTTING MACHINE OPERATOR [address] [place] [address] [facility] Internal Medicine 08/17/24 In Flight Crew Member Relationship Specialty Start Date End Date Willam Estrada MD [address] [place] [address] PCP - General 01/15/06 Mona Corrigan MD [address] [place] [address] Pulmonary and Critical Care Medicine 11/11/23 Shaq Rush MD [address]61 [address] [facility] [address] [place] [address] Cardiology 11/25/23 Leilani Ramirez APRN.JEWELRY MODEL MAKER [address] [place] [address] Plate Inspector Internal Medicine 08/17/24 Allegra Beurmen APRN.UNDER CUTTING MACHINE OPERATOR [address] [place] [address] Plate Inspector Internal Medicine 08/17/24 In Flight Crew Member Relationship Specialty Start Date End Date Willam Estrada MD [address] [place] [address] PCP - General 01/15/06 Mona Corrigan MD [address] [place] [address] Pulmonary and Critical Care Medicine 11/11/23 Shaq Rush MD [address] [facility] [address] [place] [address] Cardiology 11/25/23 Leilani Ramirez APRN.JEWELRY MODEL MAKER [address] [place] [address] Plate Inspector Internal Medicine 08/17/24 Allegra Berumen APRN.UNDER CUTTING MACHINE OPERATOR [address] [place] [address] Plate Inspector Internal Medicine 08/17/24 In Flight Crew Member Relationship Specialty Start Date End Date Willam Estrada MD [address] [place] [address] PCP - General 01/15/06 Mona Corrigan MD [address] [place] [address] Pulmonary and Critical Care Medicine 11/11/23 Shaq Rush MD [address] [place] [address] Cardiology 11/25/23 Leilani Ramirez APRN.JEWELRY MODEL MAKER [address] [facility] [place] [address] Plate Inspector Internal Medicine 08/17/24 Allegra Berumen APRN.UNDER CUTTING MACHINE OPERATOR [address] [place] [address] Plate Inspector Internal Medicine 08/17/24 In Flight Crew Member Relationship Specialty Start Date End Date Willam Estrada MD [address] [facility] [place] [address] PCP - General 01/15/06 Mona Corrigan MD [address] [place] [address] Pulmonary and Critical Care Medicine 11/11/23 Shaq Rush MD [address] [place] [address] Cardiology 11/25/23 Leilani Ramirez, CHIEF PROGRAM OFFICER.JEWELRY MODEL MAKER [address] [place] [address] Plate Inspector Internal Medicine 08/17/24 Allegra Berumen APRN.UNDER CUTTING MACHINE OPERATOR [address] [facility] [place] [address] Plate Inspector Internal Medicine 08/17/24 In Flight Crew Member Relationship Specialty Start Date End Date Willam Estrada MD [address] [place] [address] PCP - General 01/15/06 Mona Corrigan MD [address] [place] [address] Pulmonary and Critical Care Medicine 11/11/23 Shaq Rush MD [address] [place] [address] Cardiology 11/25/23 Leilani Ramirez, CHIEF PROGRAM OFFICER.JEWELRY MODEL MAKER [address] [facility] [place] [address] Plate Inspector Internal Medicine 08/17/24 Allegra Berumen APRN.UNDER CUTTING MACHINE OPERATOR [address] [place] [address] Plate Inspector Internal Medicine 08/17/24 In Flight Crew Member Relationship Specialty Start Date End Date Willam Estrada MD [address] [place] [address] PCP - General 01/15/06 Mona Corrigan MD [address] [place] [address] Pulmonary and Critical Care Medicine 11/11/23 Shaq Rush MD [address] [place] [address] Cardiology 11/25/23 Leilani Ramirez, CHIEF PROGRAM OFFICER.JEWELRY MODEL MAKER [address] [place] [address] Plate Inspector Internal Medicine 08/17/24 Allegra Berumen APRN.UNDER CUTTING MACHINE OPERATOR [address] [place] [address] [facility] Internal Medicine 08/17/24 In Flight Crew Member Relationship Specialty Start Date End Date Willam Estrada MD [address] [place] [address] PCP - General 01/15/06 Mona Corrigan MD [address] [place] [address] Pulmonary and Critical Care Medicine 11/11/23 Shaq Rush MD [address] [place] [address] Cardiology 11/25/23 Leilani Ramirez CHIEF PROGRAM OFFICER.JEWELRY MODEL MAKER [address] [place] [address] Plate Inspector Internal Medicine 08/17/24 Allegra Berumen APRN.UNDER CUTTING MACHINE OPERATOR [address] [facility] [place] [address] Plate Inspector Internal Medicine 08/17/24 In Flight Crew Member Relationship Specialty Start Date End Date Willam Estrada MD [address] [place] [address] PCP - General 01/15/06 Mona Corrigan MD [address] [place] [address] Pulmonary and Critical Care Medicine 11/11/23 Shaq Rush MD [address] [place] [address] Cardiology 11/25/23 Leilani Ramirez, CHIEF PROGRAM OFFICER.JEWELRY MODEL MAKER [address] [facility] [place] [address] Plate Inspector Internal Medicine 08/17/24 Allegra Berumen CHIEF PROGRAM OFFICER.UNDER CUTTING MACHINE OPERATOR [address] [facility] [place] [address] Plate Inspector Internal Medicine 08/17/24 In Flight Crew Member Relationship Specialty Start Date End Date Willam Estrada MD [address] [facility] [place] [address] PCP - General 01/15/06 Mona Corrigan MD [address] [place] [address] Pulmonary and Critical Care Medicine 11/11/23 Shaq Rush MD [address] [place] [address] Cardiology 11/25/23 Leilani Ramirez, CHIEF PROGRAM OFFICER.JEWELRY MODEL MAKER [address] [place] [address] Plate Inspector Internal Medicine 08/17/24 In Flight Crew Member Relationship Specialty Start Date End Date Willam Estrada MD [address] [place], [place] [address] PCP - General 01/15/06 Mona Corrigan MD [address] [place] [address] Pulmonary and Critical Care Medicine 11/11/23 Shaq Rush MD [address] [address] Cardiology 11/25/23 Leilani Ramirez APRN.JEWELRY MODEL MAKER [address] [place] [address] Plate Inspector Internal Medicine 08/17/24 Allegra Berumen CHIEF PROGRAM OFFICER.UNDER CUTTING MACHINE OPERATOR [address] [place], [place] [address] Plate Inspector Internal Medicine 12/01/24 Team Status: Active Member [...] 08, 2024 End: September 08, 2024 Dr. Wlilam Estrada MD Referring Provider Active Start: September [...] November 16, 2024 End: November 16, 2024 In Flight Crew Member Relationship Specialty Start Date End Date Willam Estrada MD [address] [place], [place] [address] PCP - General 01/15/06 Mona Corrigan MD [address] [place] [address] Pulmonary and Critical Care Medicine 11/11/23 Shaq Rush MD [address] [address] Cardiology 11/25/23 Leilani Ramirez APRN.JEWELRY MODEL MAKER [address] [place] [address] Plate Inspector Internal Medicine 08/17/24 Allegra Berumen CHIEF PROGRAM OFFICER.UNDER CUTTING MACHINE OPERATOR [address] [place] [address] Plate Inspector Internal Medicine 12/01/24 Team Status: Inactive Member Role Status Dates Dr. Willam Estrada MD Primary Care Provider Active Start: December 18, 2024 End: December 18, 2024 KEVIN Beckham Attending Provider Active Star t: December 18, 2024 End: December 18, 2024 KEVIN Beckham Referring Provider Active Star t: December 18, 2024 End: December 18, 2024 In Flight Crew Member Relationship Specialty Start Date End Date Willam Estrada MD [address] [place], [place] [address] PCP - General 01/15/06 Mona Corrigan MD [address] [place], [place] [address] Pulmonary and Critical Care Medicine 11/11/23 Shaq Rush MD [address] [address] Cardiology 11/25/23 Leilani Ramirez APRN.JEWELRY MODEL MAKER [address] [place] [address] [facility] Internal Medicine 08/17/24 Allegra Berumen APRN.UNDER CUTTING MACHINE OPERATOR [address] [place] [address] [facility] Internal Medicine 08/17/24 11/27/24 Allegra Berumen APRN.UNDER CUTTING MACHINE OPERATOR [address] [place] [address] [facility] Internal Medicine 12/01/24 Team Status: Inactive [...] February 04, 2025 End: February 04, 2025 In Flight Crew Member Relationship Specialty Start Date End Date Willam Estrada MD [address] [place] [address] PCP - General 01/15/06 Mona Corrigan MD [address] [facility] [place] [address] Pulmonary and Critical Care Medicine 11/11/23 Shaq Rush MD [address] [place] [address] Cardiology 11/25/23 Allegra Berumen, CHIEF PROGRAM OFFICER.UNDER CUTTING MACHINE OPERATOR [address] [place] [address] Plate Inspector Internal Medicine 12/01/24 Leilani Ramirez, CHIEF PROGRAM OFFICER.JEWELRY MODEL MAKER [address] [place] [address] Plate Inspector Internal Medicine 01/27/25 In Flight Crew Member Relationship Specialty Start Date End Date Willam Estrada MD [address] [place] [address] PCP - General 01/15/06 Mona Corrigan MD [address] [place] [address] Pulmonary and Critical Care Medicine 11/11/23 Shaq Rush MD [address] [place] [address] Cardiology 11/25/23 Allegra Berumen APRN.UNDER CUTTING MACHINE OPERATOR [address] [place] [address] Plate Inspector Internal Medicine 12/01/24 Leilani Ramirez, CHIEF PROGRAM OFFICER.JEWELRY MODEL MAKER [address] [place] [address] Plate Inspector Internal Medicine 01/27/25 In Flight Crew Member Relationship Specialty Start Date End Date Willam Estrada MD [address] [place] [address] PCP - General 01/15/06 Mona Corrigan MD [address] [place] [address] Pulmonary and Critical Care Medicine 11/11/23 Shaq Rush MD [address] [facility] [address] [place] [address] Cardiology 11/25/23 Allegra Berumen CHIEF PROGRAM OFFICER.UNDER CUTTING MACHINE OPERATOR [address] [place] [address] Plate Inspector Internal Medicine 12/01/24 Leilani Ramirez CHIEF PROGRAM OFFICER.JEWELRY MODEL MAKER [address] [place] [address] Plate Inspector Internal Medicine 01/27/25 In Flight Crew Member Relationship Specialty Start Date End Date Willam Estrada MD [address] [place] [address] PCP - General 01/15/06 Mona Corrigan MD [address] [place] [address] Pulmonary and Critical Care Medicine 11/11/23 Shaq Rush MD [address] [facility] [address] [place] [address] Cardiology 11/25/23 Allegra Berumen APRN.UNDER CUTTING MACHINE OPERATOR [address] [place] [address] Plate Inspector Internal Medicine 12/01/24 Leilani Ramirez APRN.JEWELRY MODEL MAKER [address] [place] [address] [facility] Internal Medicine 01/27/25 In Flight Crew Member Relationship Specialty Start Date End Date Willam Estrada MD [address] [place] [address] PCP - General 01/15/06 Mona Corrigan MD [address] [place] [address] Pulmonary and Critical Care Medicine 11/11/23 Shaq Rush MD [address] [place] [address] Cardiology 11/25/23 Alelgra Berumen APRN.UNDER CUTTING MACHINE OPERATOR [address] [place] [address] Plate Inspector Internal Medicine 12/01/24 Leilani Ramirez APRN.JEWELRY MODEL MAKER [address] [place] [address] Plate Inspector Internal Medicine 01/27/25 Team Status: Active Member Role/Relationship Status Dates Dr. Willam Estrada MD Primary Care Provider Active Team Status: Inactive Member Role/Relationship Status Dates Dr. Willam Estrada MD Primary Care Provider Active Start: November 16, 2024 End: November 16, 2024 Dr. Willam Estrada MD Referring Provider Active Start: November 16, 2024 End: November 16, 2024 KEVIN Beckham Attending Provider Active Star t: November 16, 2024 End: November 16, 2024 Team Status: Inactive Member Role/Relationship Status Dates Dr. Willam Estrada MD Primary Care Provider Active Start: December 18, 2024 End: December 18, 2024 KEVIN Beckham Attending Provider Active Star t: December 18, 2024 End: December 18, 2024 KEVIN Beckham Referring Provider Active Star t: December 18, 2024 End: December 18, 2024 Team Status: Inactive Member Role/Relationship Status Dates Dr. Willam Estrada MD Primary Care Provider Active Start: December 24, 2024 End: December 24, 2024 Dr. Willam Estrada MD Referring Provider Active Start: December 24, 2024 End: December 24, 2024 KEVIN Bcekham Attending Provider Active Star t: December 24, 2024 End: December 24, 2024 Team Status: Inactive Member Role/Relationship Status Dates Dr. Willam Estrada MD Primary Care Provider Active Start: February 04, 2025 End: February 04, 2025 Dr. Willam Estrada MD Referring Provider Active Start: February 04, 2025 End: February 04, 2025 Dr. Blake Avilez MD Attending Provider Active Start: February 04, 2025 End: February 04, 2025 Team Status: Inactive Member Role/Relationship Status Dates Dr. Willam Estrada MD Primary Care Provider Active Start: March 13, 2025 End: March 13, 2025 Dr. Adan Barnard MD Emergency Provider Active S tart: March 13, 2025 End: March 13, 2025 In Flight Crew Member Relationship Specialty Start Date End Date Willam Estrada MD [address] [place] [address] PCP - General 01/15/06 Mona Corrigan MD [address] [place] [address] Pulmonary and Critical Care Medicine 11/11/23 Shaq Rush MD [address] [address] Cardiology 11/25/23 Leilani Ramirez, CHIEF PROGRAM OFFICER.JEWELRY MODEL MAKER [address] [place] [address] Plate Inspector Internal Medicine 08/17/24 01/26/25 Allegra Berumen, CHIEF PROGRAM OFFICER.UNDER CUTTING MACHINE OPERATOR [address] [place] [address] Plate Inspector Internal Medicine 12/01/24 Leilani Ramirez, CHIEF PROGRAM OFFICER.JEWELRY MODEL MAKER [address] [place] [address] Plate Inspector Internal Medicine 01/27/25 In Flight Crew Member Relationship Specialty Start Date End Date Willam Estrada MD [address] [place] [address] PCP - General 01/15/06 Mona Corrigan MD [address] [place] [address] Pulmonary and Critical Care Medicine 11/11/23 Shaq Rush MD [address], [place] [address] Cardiology 11/25/23 Allegra Berumen APRN.UNDER CUTTING MACHINE OPERATOR [address] [facility], [place] [address] Plate Inspector Internal Medicine 12/01/24 Leilani Ramirez APRN.JEWELRY MODEL MAKER [address] [facility], [place] [address] Plate Inspector Internal Medicine 01/27/25 Team Status: Inactive Member Role/Relationship Status Dates Dr. Willam Estrada MD Primary Care Provider Active Start: December 18, 2024 End: December 18, 2024 KEVIN Beckham Attending Provider Active Star t: December 18, 2024 End: December 18, 2024 KEVIN Beckham Referring Provider Active Star t: December 18, 2024 End: December 18, 2024 Team Status: Inactive Member Role/Relationship Status Dates Dr. Willam Estrada MD Primary Care Provider Active Start: December 24, 2024 End: December 24, 2024 Dr. Willam Estrada MD Referring Provider Active Start: December 24, 2024 End: December 24, 2024 KEVIN Beckham Attending Provider Active Star t: December 24, 2024 End: December 24, 2024 Team Status: Inactive Member Role/Relationship Status Dates Dr. Willam Estrada MD Primary Care Provider Active Start: February 04, 2025 End: February 04, 2025 Dr. Willam Estrada MD Referring Provider Active Start: February 04, 2025 End: February 04, 2025 Dr. Blake Avilez MD Attending Provider Active Start: February 04, 2025 End: February 04, 2025 Team Status: Inactive Member Role/Relationship Status Dates Dr. Willam Estrada MD Primary Care Provider Active Start: March 13, 2025 End: March 13, 2025 Dr. Adan Barnard MD Attending Provider Active S tart: March 13, 2025 End: March 13, 2025 Dr. Adan Barnard MD Emergency Provider Active S tart: March 13, 2025 End: March 13, 2025 Team Status: Inactive Member Role/Relationship Status Dates Dr. Willam Estrada MD Primary Care Provider Active Start: April 08, 2025 End: April 08, 2025 Dr. Willam Estrada MD Referring Provider Active Start: April 08, 2025 End: April 08, 2025 Dr. Rhoda Torres MD Attending Provider Active Start: April 08, 2025 End: April 08, 2025 Goals (unrecognized section and content) Goals may [...] BE BASED ON THE PRIMARY CLINICAL RECORDS. [facility] [employer] [facility]. provides no warranty or guarantee of the accuracy or completeness of information in this document.
[2025-04-21] MEDS: Lactated Ringers 1,000 ML 15 ML IV ×2 (06:15→08:11)
[2025-04-21] MEDS: Lactated Ringers 1,000 ML 999 ML IV (06:30)
--- NOTE | 2025-04-21 07:15 | PCM.HP.BLA ---
History and Physical Date of Admission: 04/21/25 Date of Service: 04/08/25 MR#: [id number] Acct: [id number] Name: GARLAND PARIKH Rep #: [id number] : 1960 Provider: Dr. Rhoda Torres MD Age/Sex: 64/F Location: [facility] Status: Signed Intake Vital Signs 03/13/2513:13 04/08/2509:05 Height 5 ft 6 in 5 ft 6 in Weight: 194 lb BMI 31.3 BP 125/76 H Blood Pressure Location Rt brachial Position Sitting Respiration 17 Pulse 82 Pulse Source Monitor Pulse Oximetry (%) 98 Oxygen Delivery Method room air Intake Visit Reasons: HEMORRHOIDS Chief Complaint: hemorrhoids Is patient in pain?: No Allergies Cephalosporins Allergy (Intermediate, Verified 03/13/25 13:13) Rashhydromorphone (From Dilaudid) Allergy (Intermediate, Verified 03/13/25 13:13) Altered mental statuspseudoephedrine Allergy (Intermediate, Verified 03/13/25 13:13) Tachycardiaegg (eggs) Allergy (Mild, Verified 03/13/25 13:13) Diarrheafluoxetine (From Prozac) Allergy (Verified 03/13/25 13:13) Chest tightnesshouse dust mite Allergy (Verified 03/13/25 13:13) NEEDS FOLLOW-UPhydrocodone (From Vicodin) Allergy (Verified 03/13/25 13:13) Upset StomachPenicillins Allergy (Verified 03/13/25 13:13) Hivesprednisone Adverse Reaction (Verified 03/13/25 13:13) PT UNABLE TO RESPOND-NEEDS F/U Medications ?Medication ?Instructions ?Recorded ?Confirmed ?Type gemfibrozil 600 mg tablet 600 mg PO BID Cholestrol 06/13/14 04/08/25 History trazodone 100 mg tablet 100 mg PO QHS Mood 06/13/14 04/08/25 History alprazolam 0.5 mg tablet 0.5 mg PO QHS ANXIETY 07/30/15 04/08/25 History buspirone 5 mg tablet 7.5 mg PO BID Mood 07/11/18 04/08/25 History metformin 500 mg tablet,extended 500 mg PO BID Diabetes 07/11/18 04/08/25 History release 24 hr potassium chloride 10 mEq 10 meq PO DAILY Supplement 07/11/18 04/08/25 History tablet,extended release(part/cryst) sertraline 100 mg tablet (Zoloft) 200 mg PO QHS mental health 07/11/18 04/08/25 History ipratropium bromide 0.02 % 2.5 ml inhalation Q6H PRN 08/21/21 04/08/25 Rx solution for inhalation shortness of breath or wheezing #75 mL albuterol sulfate 2.5 mg/3 mL 2.5 mg inhalation Q4H PRN 11/15/21 04/08/25 History (0.083 %) solution for nebulization shortness of breath cetirizine 10 mg tablet 10 mg PO DAILY PRN ALLERGIES 11/15/21 04/08/25 History gabapentin 300 mg capsule 600 mg PO .COMPLEX neuropathy 11/15/21 04/08/25 History (Neurontin) ibuprofen 600 mg tablet 600 mg PO Q12H PRN pain 11/15/21 04/08/25 History glipizide 5 mg tablet 5 mg PO DAILY Diabetes 11/26/23 04/08/25 History pantoprazole 20 mg tablet,delayed 20 mg PO BID GERD #60 TABLETS 02/10/24 04/08/25 Rx release carvedilol 25 mg tablet 25 mg PO BID #60 tabs 10/02/24 04/08/25 Rx lisinopril 20 mg tablet 20 mg PO BID bp 10/16/24 04/08/25 History albuterol sulfate 90 mcg/actuation 1 - 2 puff inhalation Q4H PRN PRN 11/16/24 04/08/25 Rx aerosol inhaler (Ventolin HFA) Wheezing ##1 hydrocortisone 2.5 % topical cream 1 applic DE BID-QID PRN 04/08/25 04/08/25 Rx with perineal applicator hemorrhoids #30 grams (Proctozone-HC) REPLACED BY [facility] Medical History Nonalcoholic fatty liver disease Gastroparesis Hemorrhoid Constipation CA19-9 above reference range Exocrine pancreatic insufficiency Elevated lipase Elevated C-reactive protein (CRP) Heartburn Morbid obesity Asthma Tobacco user Benign essential hypertension Family history of aneurysm Wears partial dentures Wears dentures Anxiety Diabetes Bladder disease Dietary restriction History of hiatal hernia Gastric reflux BiPAP (biphasic positive airway pressure) dependence Sleep apnea Smoker Hypertension Cardiology follow-up encounter History of stress test History of echocardiogram Elevated CPK Fatty liver Abdominal pain Diarrhea Hemorrhage of gastrointestinal tract Depression Arthritis Mixed hyperlipidemia Type 2 diabetes mellitus COPD (chronic obstructive pulmonary disease) YARY treated with BiPAP Postoperative anemia Osteoarthritis Anxiety and depression Surgical History History of lumbar laminectomy History of bladder suspension procedure Hx of cholecystectomy History of total right knee replacement Hx of tonsillectomy H/O vaginal hysterectomy Tubal ligation status History of back surgery History of appendectomy S/P total knee arthroplasty Family History Mother Glaucoma Cervical cancer AsthmaFather , at 77 Myocardial infarction Cancer Lung, metastatic to bone CAD (coronary artery disease) History of coronary artery bypass surgery Aortic aneurysm and dissectionSister Colon polyp Thyroid disorder Lung cancer Social History (Updated 04/08/25 @ 09:05 by Senait Rivera) household members: none housing: apartment Smoking Status: Current every day smoker tobacco type: cigarettes quit status: considering quitting alcohol intake: never substance use type: does not use caffeine: Yes Type: carbonated beverages Number of servings: 2 HPI HPI HPI: 64-year-old female presents due to hemorrhoids and bleeding per rectum and possible need for repeat surveillance colonoscopy. Patient last colonoscopy was in November [address] Caceres patient had 9 polyps removed at that time with hemorrhoidal banding. Recommend follow-up in 1 year. Patient states she saw Dr. Ordonez who did not recommend this. Patient states she has had issues with hemorrhoids worse recently increased pain on Saturday states they are internal hemorrhoids. Patient states she does have pain with bowel movements and notices bleeding even without bowel movements. Patient has had internal hemorrhoids which do protrude in the recent past. Does do a sitz bath does not do any other medication. Patient does have loose bowel movements daily also has been having bleeding. Patient is not on any blood thinners. Patient has also noticed a firm circular area on the left inferior buttocks which she noticed a few months ago?patient denies any pain or drainage at the area. Patient states that due to limited financial funds unable to get out of pocket suppositories/compound suppositories for hemorrhoids. ROS General General: Yes fatigue; No weight change, appetite, colon cancer or breast cancer HEENT HEENT: No difficulty swallowing, eye injury, eye surgery, swollen glands or hoarseness Endo Endocrine: Yes diabetes mellitus; No thyroid disease, thyroid cancer, Hair loss, heat intolerance or cold intolerance Skin Skin: No rash or changing moles Musc Musculoskeletal: Yes back problems and arthritis; No rheumatoid arthritis, gout or joint pain Cardio Cardiovascular: Yes high blood pressure; No murmur, pacemaker, heart disease, atrial fibrillation, heart attack, heart stent, palpitations, shortness of breath with exertion or chest pain Psych Psychiatric: Yes depression and anxiety; No hearing voices Resp Respiratory: Yes shortness of breath, Yes sleep apnea, Yes cough, Yes COPD, Yes asthma, No emphysema and No wheezing Gastro Gastrointestinal: No abdominal pain, No nausea or vomiting, Yes diarrhea, Yes constipation, Yes blood in stool, Yes acid reflux, Yes hemorrhoids, No ulcers, No gallbladder problem and No black,tarry stools Additional Details: Stated she has had pain in her rectal area at times and has had bleeding after bowel movements. Tolu Hematologic: No blood thinners, No blood disorders, No bleeding, No anemia and No blood clots Neuro Neurologic: Yes numbness and Yes tingling Exam Const General: cooperative, healthy appearing, comfortable and no acute distress HENMT Head: normocephalic and atraumatic Neck Neck: supple Resp Effort & Inspection: normal respiratory effort Cardio Rate: regular rate GI Inspection: non-distended Palpation: soft, no hernias and nontender Other: Small residual hemorrhoidal external tissue, internal hemorrhoids seen with Valsalva, no gross blood, SUSAN deferred Left inferior buttocks centimeter by centimeter firm indurated skin bedside ultrasound does not show a clear sebaceous cyst as there is not great borders but does look different in that area from surrounding tissue. Skin General: no rashes or lesions noted Neuro General: CN's II-XI intact bilaterally Extrem General: normal to inspection Psych Mental Status: mental status grossly normal Attitude: cooperative Assessment and Plan Assessment and Plan (1) Internal hemorrhage: Status: Acute (2) Hx of colonic polyp: Status: Acute Medications: New hydrocortisone 2.5% (Proctozone-HC) 1 applic DE BID-QID PRN 30 grams 1RF hemorrhoids Plan Discussed with patient's only good way to get medication to the internal hemorrhoids would be a suppository however [id number] they do not have the 2.5% hydrocortisone also insurance does not really pay for an suppositories. Will plan to send in the Proctosol cream and she can try to get that to the internal hemorrhoids either putting on [id number] suppositories of Preparation H or digitally. Did double check with her retail pharmacy the compound/hydrocortisone/lidocaine suppositories do not go through insurance as the have not been covered-patient is unable to afford the $40 [id number]. Would recommend repeat colonoscopy for surveillance due to history of colon polyps .I have discussed the above with the patient. I have offered the patient colonoscopy for evaluation. I have explained the risks/benefits of the procedure and described the procedure. I have discussed the risks with the patient, including but not limited to: infection, bleeding, perforation of the GI tract requiring emergency surgery, inability to complete the procedure, injury to any internal organs, complications of anesthesia, etc. - the patient understands and agrees to proceed. I have answered all the patient's questions to the patient's satisfaction and the patient has no further questions. The patient has been given instructions for the colon cleansing preparation. 1 day of clears MiraLAX Dulcolax. Rhoda Torres M.D. Pager: [phone] [facility] [address] [place] [address], [facility], [address] [place] [address] Office: [phone] Coding Level of Care Code Off vis,new,level 3 Diagnoses Internal hemorrhage R58 Hx of colonic polyp Z86.0100 04/08/25 1440 <Electronically signed by Rhoda Torres MD> Date Rhoda Torres MD
--- NOTE | 2025-04-21 07:30 | COLBX_PTH ---
PATIENT: GARLAND PARIKH LOC: EN U#:[id number] AGE/SX: 64/F ROOM: RE04/21/[address]: Dr. Rhoda Torres MD : 1960 BED: DIS: 04/21/2025 SPEC #: [id number] RECD: 04/21/25 10:16 STATUS: ANNIE SHAWNA #: [id number] ZACH: 04/21/25 07:[address]: Rhoda Torres DEPT: SURGICAL PATHOLOGY RECD BY: Jeison Payan ENTERED: 04/21/25 10:36 SP TYPE: COLON BX OTHR DR: Dr. Susanna Monroe MD Tissues: A - Ascending colon B - Transverse colon Procedures: Surgery Specimen Level IV Surgery Specimen Level HEADER OPERATION: Colonoscopy with biopsy PRE-OP DIAGNOSIS: Internal hemorrhage, history of colonic polyp TISSUE SUBMITTED: A- Ascending colon polyp biopsy, B- Transverse colon polyp biopsy MICROSCOPIC DIAGNOSIS A. Ascending colon, polyp, biopsy: - Tubular adenoma. B. Transverse colon, polyp, biopsy: - Tubular adenoma. MICROSCOPIC DESCRIPTION Slides are reviewed. GROSS DESCRIPTION A. Received in fixative is one container labeled with the patient's name and designated Ascending colon polyp biopsy. The specimen consists of two irregular fragments of light todd soft tissue, each measuring 0.2 cm. The specimen is totally submitted in one cassette. B. Received in fixative is one container labeled with the patient's name and designated Transverse colon polyp biopsy. The specimen consists of one irregular fragment of light todd soft tissue that measures 0.6 cm. The specimen is totally submitted in one cassette. MS 04/21/2025 CPT:[id number]
--- NOTE | 2025-04-21 07:32 | PRE.ANES_ITS ---
ASA Classification* ASA Classification ASA Classification: 2 Assessment & Plan Anesthesia* Anesthesia Assessment Anesthesia Assessment: Discussed sedation and/or anesthesia options, risks, benefits, and alternatives with patient/parents/legal guardian/POA. Questions invited. The patient/parents/legal guardian/POA seems to understand and agrees to proceed with anesthesia plan. Reviewed the physical assessment, medical history, allergy history and patient home medications list prior to surgery/procedure/anesthetic and documented any changes. Performed airway and anesthesia risk assessments. Procedural Plan Add'l anesthesia plan details: Presented in preop with low blood pressure SBP mid 60s. Given 1 L of LR with good response blood pressure SBP above 85. Gave another 500 mL of LR crystalloids with blood pressure responding with SBP above 95. The patient's feels much better clinically. Sister at bedside stated in the morning she was feeling dizzy. Currently feels much better. Okay to proceed with colonoscopy today. Advised to follow-up with primary care and have a plan for better daily hydration. Anesthesia Type Anesthesia Type: MAC History Source History Obtained from:: Patient and Chart Anesthesia Focused Assessment* Temperature: 97.2 F Pulse Rate: 83 Blood Pressure: 87/56 Respiratory Rate: 16 Pulse Ox: 97 Oxygen Delivery Method: Room Air Airway Assessment Mouth opens: >3 cm Mallampati Score: II Teeth Condition: Caps/Crowns Neck Range of motion (ROM): Limited ROM Labs Anesthesia Preop lab: CBC WBC 7.7 K/mm3 (4.4-11.0) 03/13/25 13:20 03/13/25 RBC 4.72 M/mm3 (4.2-5.4) 03/13/25 13:20 03/13/25 Hgb 13.4 g/dL (12.0-15.0) 03/13/25 13:20 03/13/25 Hct 38.8 % (37-47) 03/13/25 13:20 03/13/25 Plt Count 300 K/mm3 (150-450) 03/13/25 13:20 03/13/25 CHEMISTRY Potassium 4.1 mmol/L (3.3-5.1) 03/13/25 13:20 03/13/25 Sodium 140 mmol/L (133-145) 03/13/25 13:20 03/13/25 Magnesium 1.7 mg/dL (1.6-2.6) 03/22/24 06:05 03/22/24 Phosphorus 2.1 mg/dL (2.5-4.9) L 03/22/24 06:05 03/22/24 BUN 13 mg/dL (4-19) 03/13/25 13:20 03/13/25 Creatinine 0.56 mg/dL (0.70-1.20) L 03/13/25 13:20 Glucose 159 mg/dL (70-99) H 03/13/25 13:20 03/13/25 POC Glucose 223 mg/dL (74-106) H 04/21/25 06:22 04/21/25 TSH 0.93 uIU/mL (0.358-3.74) 12/14/21 15:14 COAG PT 12.8 SECONDS (11.7-14.9) 01/15/22 10:08 Pre-Assessment Diagnosis/Proposed Procedure Planned Operative Procedure(s): COLONOSCOPY Anesthesia History 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 When Was Last Pacemaker Check QUESTION #4 FULL TEXT: You/Your Family Experience fever (hyperthermia) with Anesthesia Last Oral Intake Last Oral intake: Last Oral Intake NPO since 05:30 04/21/25 06:42 Meds taken in AM with sips of No 04/21/25 06:42 water? 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 Female Yes 04/16/25 09:33 HX of Motion Sickness No 04/16/25 09:33 HX of N/V After Surgery No 04/16/25 09:33 Non-Smoker No 04/16/25 09:33 Duration of Surgery greater No 04/16/25 09:33 than 60 minutes Number of Risk Factors 1 04/16/25 09:33 PONV Score Low Risk 04/16/25 09:33 Height & Weight Height & Weight: Anesthesia: Height & Weight Height 5 ft 6 in 04/21/25 06:42 Weight: 85 kg 04/21/25 06:42 Body Mass Index (BMI) 30.2 04/21/25 06:42 Respiratory Assessment Respiratory Assessment - automotive refinish technician: Respiratory Tract Infection Hx - automotive refinish technician Hx Respiratory Tract Infection No 04/16/25 09:33 STOP Sleep Apnea STOP Sleep Apnea - automotive refinish technician: STOP Sleep Apnea - automotive refinish technician Hx Hypertension Yes 04/16/25 09:33 Hx Sleep Apnea Yes 04/16/25 09:33 CPAP No 04/16/25 09:33 BIPAP Yes 04/16/25 09:33 Do you snore loudly (louder than talking or can be heard Do you often feel tired/ fatigued/ sleepy during daytime? Has anyone observed you stop breathing during sleep? STOP Results Positive 04/16/25 09:33 QUESTION #5 FULL TEXT : Do you snore loudly (louder than talking or can be heard through closed doors)? 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 Specify any problems Hx of Preganancy in last 3 No 04/16/25 09:33 Months Nurse Filling Out Transfusion [facility] 04/16/25 09:33 & Questions: Date: 04/16/25 04/16/25 09:33 Time: 09:43 04/16/25 09:33 Patient unable to answer at this time (ie. confused, unrespo /Reproduction History /Reproductive History - automotive refinish technician: /Reproductive Hx- automotive refinish technician Hx Now No 04/16/25 09:33 Gestational Age (in weeks): EDC: Hx Hx Para Hx Section SAB No 04/16/25 09:33 Active Medications Active Medications: Current Medications Generic Name Dose Route Start Last Admin Trade Name Freq PRN Reason Stop Dose Admin Lactated Ringer's 1,000 mls @ 15 mls/hr 04/21/25 06:15 04/21/25 06:15 IV 15 mls/hr .Q48H [place] Administration Lactated Ringer's 1,000 mls @ 999 mls/hr 04/21/25 07:00 04/21/25 07:25 IV 04/21/25 08:00 Infused .Q1H1M L[place] Infusion PFSH Medical History Post-menopausal Fatty liver Family history of aneurysm Nonalcoholic fatty liver disease Gastroparesis Hemorrhoid Wears partial dentures Wears dentures Anxiety Diabetes Bladder disease Dietary restriction History of hiatal hernia Gastric reflux BiPAP (biphasic positive airway pressure) dependence Sleep apnea Smoker Hypertension Cardiology follow-up encounter History of stress test History of echocardiogram Constipation CA19-9 above reference range Exocrine pancreatic insufficiency Elevated lipase Elevated C-reactive protein (CRP) Heartburn Elevated CPK Fatty liver Abdominal pain Diarrhea Hemorrhage of gastrointestinal tract Depression Arthritis Mixed hyperlipidemia Type 2 diabetes mellitus COPD (chronic obstructive pulmonary disease) YARY treated with BiPAP Morbid obesity Postoperative anemia Asthma Osteoarthritis Anxiety and depression Tobacco user Benign essential hypertension Home Medications ?Medication ?Instructions ?Recorded ?Last Taken ?Type gemfibrozil 600 mg tablet 600 mg PO BID Cholestrol 01/2011/26/23 History trazodone 100 mg tablet 100 mg PO QHS Mood 06/13/14 11/26/23 History alprazolam 0.5 mg tablet 0.5 mg PO QHS ANXIETY 11/27/23 History buspirone 5 mg tablet 7.5 mg PO BID Mood 07/11/18 03/20/24 History metformin 500 mg tablet,extended 500 mg PO BID Diabete s 07/11/18 11/26/23 History release 24 hr potassium chloride 10 mEq 10 meq PO DAILY Supplement 1 09/10/17 11/26/23 History tablet,extended release(part/cryst) sertraline 100 mg tablet (Zoloft) 200 mg PO QHS mental health 07/11/18 11/27/23 History ipratropium bromide 0.02 % 2.5 ml inhalation Q6H PRN 1 10/22/20 Unknown Rx solution for inhalation shortness of breath or wheez ing #75 mL albuterol sulfate 2.5 mg/3 mL 2.5 mg inhalation Q4H VT N 11/15/21 11/26/23 History (0.083 %) solution for nebulization shortness of breat h cetirizine 10 mg tablet 10 mg PO DAILY PRN ALLERGIES 11/15/21 Unknown History gabapentin 300 mg capsule 600 mg PO .COMPLEX neuropath y 11/15/21 11/26/23 History (Neurontin) ibuprofen 600 mg tablet 600 mg PO Q12H PRN pain 05/31 Unknown History glipizide 5 mg tablet 5 mg PO DAILY Diabetes 11/2511/26/23 History pantoprazole 20 mg tablet,delayed 20 mg PO BID GERD #6 0 TABLETS 02/10/24 Unknown Rx release carvedilol 25 mg tablet 25 mg PO BID #60 tabs Unknown Rx lisinopril 20 mg tablet 20 mg PO BID bp 10/16/24 Unk nown History albuterol sulfate 90 mcg/actuation 1 - 2 puff inhalati on Q4H PRN PRN 11/16/24 Unknown Rx aerosol inhaler (Ventolin HFA) Wheezing ##1 hydrocortisone 2.5 % topical cream 1 applic VT BID-QID PRN 04/08/25 Unknown Rx with perineal applicator hemorrhoids #30 grams (Proctozone-HC) furosemide 20 mg tablet 20 mg PO DAILY 04/16/25 Unkn own History Allergy/AdvReac Type Severity Reaction Status Date / Time Cephalosporins Allergy Intermediate Rash Verified 03/13/25 13:13 hydromorphone (From Dilaudid) Allergy Intermediate Altered Verified 03/13/25 13:13 mental status pseudoephedrine Allergy Intermediate Tachycardia Verified 03/13/25 13:13 egg (eggs) Allergy Mild Diarrhea Verified 03/13/25 13:13 fluoxetine (From Prozac) Allergy Chest Verified 03/13/25 13:13 tightness house dust mite Allergy NEEDS Verified 03/13/25 13:13 FOLLOW-UP hydrocodone (From Vicodin) Allergy Upset Verified 03/13/25 13:13 Stomach Penicillins Allergy Hives Verified 03/13/25 13:13 prednisone AdvReac PT UNABLE Verified 03/13/25 13:13 TO RESPOND-NEEDS F/U Family History Mother Glaucoma Cervical cancer Asthma Father , at 77 Myocardial infarction Cancer Lung, metastatic to bone CAD (coronary artery disease) History of coronary artery bypass surgery Aortic aneurysm and dissection Sister Colon polyp Thyroid disorder Lung cancer Surgical History History of lumbar laminectomy History of bladder suspension procedure Hx of cholecystectomy History of total right knee replacement Hx of tonsillectomy H/O vaginal hysterectomy Tubal ligation status History of back surgery History of appendectomy S/P total knee arthroplasty Social History household members: none housing: apartment Smoking Status: Current every day smoker tobacco type: cigarettes quit status: considering quitting alcohol intake: never substance use type: does not use caffeine: Yes Type: carbonated beverages Number of servings: 2 Review of Systems (Anesthesia) ROS Narrative System reviewed and no additional complaints, except as documented.
--- NOTE | 2025-04-21 09:07 | OP.PROVAT_ITS ---
04/21/2025 Susanna Monroe [address] [place] [address] Re : Colonoscopy procedure for Ibis De Santiago Dear Dr. Monroe This procedure was performed on Monday, April 21, 2025. My impressions and recommendations are as follows: Impressions : - Hemorrhoids found on perianal exam. - Non-bleeding internal hemorrhoids. - Two less than 5 mm polyps in the transverse colon and in the ascending colon, removed with a cold biopsy forceps. Resected and retrieved. Recommendations : - Await pathology results. - Repeat colonoscopy in 3 - 5 years for surveillance based on pathology results. - Return to my office in 3 weeks. - Continue present medications. My findings are described in the full procedure note, which is enclosed. If I can be of further assistance, please feel free to contact me at Doctor phone number(s): , Work: . Sincerely, MD Rhoda Hunt MD 04/21/2025 9:07:15 AM This report has been signed electronically.
--- NOTE | 2025-04-21 09:07 | OP.COLON_ITS ---
Patient Name: Ibis De Santiago Procedure Date: 04/21/2025 8:29 AM Date of : 1960 Age: 64 Procedure: Colonoscopy Indications: High risk colon cancer surveillance: Personal history of colonic polyps Providers: Rhoda Torres MD Referring MD: Susanna Monroe Medicines: Monitored Anesthesia Care Patient Profile: This is a 64 year old female. Last Colonoscopy: 1 year ago. Complications: No immediate complications. Procedure: Pre-Anesthesia Assessment: - Prior to the procedure, a History and Physical was performed, and patient medications and allergies were reviewed. The patient's tolerance of previous anesthesia was also reviewed. The risks and benefits of the procedure and the sedation options and risks were discussed with the patient. All questions were answered, and informed consent was obtained. Prior Anticoagulants: The patient has taken no anticoagulant or antiplatelet agents. ASA Grade Assessment: Per anesthesia. After reviewing the risks and benefits, the patient was deemed in satisfactory condition to undergo the procedure. After I obtained informed consent, the scope was passed under direct vision. Throughout the procedure, the patient's blood pressure, pulse, and oxygen saturations were monitored continuously. The pediatric colonoscope was introduced through the anus and advanced to the cecum, identified by the appendiceal orifice, ileocecal valve and palpation. The colonoscopy was performed without difficulty. The patient tolerated the procedure well. The quality of the bowel preparation was good. Scope In: 8:36:08 AM Scope Withdrawal Time 0 hours 13 minutes 57 seconds Scope Out: 8:55:22 AM Total Procedure Duration Time 0 hours 19 minutes 14 seconds Findings: Hemorrhoids were found on perianal exam. Non-bleeding internal hemorrhoids were found. The hemorrhoids were Grade II (internal hemorrhoids that prolapse but reduce spontaneously). Two sessile polyps were found in the transverse colon and ascending colon. The polyps were less than 5 mm in size. These polyps were removed with a cold biopsy forceps. Resection and retrieval were complete. Impression: - Hemorrhoids found on perianal exam. - Non-bleeding internal hemorrhoids. - Two less than 5 mm polyps in the transverse colon and in the ascending colon, removed with a cold biopsy forceps. Resected and retrieved. Recommendation: - Await pathology results. - Repeat colonoscopy in 3 - 5 years for surveillance based on pathology results. - Return to my office in 3 weeks. - Continue present medications. Procedure Code(s): --- Professional --- 15591, Colonoscopy, flexible; with biopsy, single or multiple Diagnosis Code(s): --- Professional --- Z86.010, Personal history of colonic polyps K64.1, Second degree hemorrhoids D12.3, Benign neoplasm of transverse colon (hepatic flexure or splenic flexure) D12.2, Benign neoplasm of ascending colon CPT copyright 2021 [employer]. All rights reserved. The codes documented in this report are preliminary and upon production lead review may be revised to meet current compliance requirements. MD Rhoda Hunt MD 04/21/2025 9:07:15 AM This report has been signed electronically. Number of Addenda: 0 Note Initiated On: 04/21/2025 8:29 AM
--- NOTE | 2025-04-21 09:07 | PCM.POST.ANE ---
Anesthesia: Postop Eval I Current Vital Signs Temperature: 97.4 F Pulse Rate: 89 Blood Pressure: 122/60 Respiratory Rate: 16 Pulse Ox: 98 Oxygen Delivery Method: Room Air Assessment Airway patent: Yes Spontaneous unlabored respirations: Yes Mental status: Awake and Calm nausea: No Vomiting: No Anesthesia Complication: No Fluid Hydration Crystalloid volume administer (ml): 800 Total IV fluid infused: 800 Progress Note Anesthesia document: Postop Eval 1 completed: Yes
--- NOTE | 2025-04-21 15:41 | PCM.POSTANE2 ---
Anesthesia Postop Eval I Sum Postop Eval Completion status Anesthesia document: Postop Eval 1 completed: Yes Anesthesia Postop Eval I Summary Anesthesia Postop Eval I Summary: Anesthesia Postop Eval I: Assessment Summary Airway patent Yes 04/21/25 09:08 [email or web address] Spontaneous unlabored Yes 04/21/25 09:08 [email or web address] respirations Mental status Awake,Calm 04/21/25 09:08 [email or web address] nausea No 04/21/25 09:08 [email or web address] Vomiting No 04/21/25 09:08 [email or web address] Anesthesia Postop Eval I: Fluid Summary Crystalloid volume administer 800 04/21/25 09:08 [email or web address] (ml) Colloids volume administered ( ml) Blood Product volume administered (ml) Total IV fluid infused 800 04/21/25 09:08 [email or web address] Anesthesia Postop Eval I: Summary Notes Anesthesia Complication No 04/21/25 09:08 [email or web address] Anesthesia Complication Comment: Post-operative progress note Anesthesia: Postop Eval II Evaluation Mental status: Awake Pain Level: 0 nausea: No Vomiting: No
== END 2025-04-21 09:40 | disposition home or self-care (01) ==
LOC: EN 06:04 → AC 06:05
PROVIDERS: PCP Internal Medicine; Referring Provider Internal Medicine; Visit Provider Surgery
PROC: 0DJD8ZZ Inspection of Lower Intestinal Tract, Via Natural or Artificial Opening Endoscopic (ICD-10-PCS; CPT 45378; principal; 2025-04-21 07:25)
DX: Z12.11 Encounter for screening for malignant neoplasm of colon (principal); J44.9 Chronic obstructive pulmonary disease, unspecified; E11.43 Type 2 diabetes mellitus with diabetic autonomic (poly)neuropathy; D12.2 Benign neoplasm of ascending colon; K62.5 Hemorrhage of anus and rectum; K21.9 Gastro-esophageal reflux disease without esophagitis; Z79.84 Long term (current) use of oral hypoglycemic drugs; E78.2 Mixed hyperlipidemia; Z86.0100 Personal history of colon polyps, unspecified; F17.210 Nicotine dependence, cigarettes, uncomplicated; K64.1 Second degree hemorrhoids; I10 Essential (primary) hypertension; Z79.899 Other long term (current) drug therapy; K64.4 Residual hemorrhoidal skin tags; D12.3 Benign neoplasm of transverse colon; K31.84 Gastroparesis
CPT/HCPCS: 45380; 82962; 88305; 88309; J2405